=== PATIENT | male | born 1945 | race African-American/Black ===

== ENCOUNTER → 2017-01-20 | Outpatient (CLI) | payer MEDICARE, MEDICAID ==
[2017-01-20 14:12] LABS: BASO # 0.1 x10^3/uL (0.0-0.2); BASO % 1 % (0-3); EOS % 4 % (0-3); HEMATOCRIT 38.7 % (39.0-53.0); HEMOGLOBIN 12.2 g/dL (13.0-17.5); LYMPH # 3.8 x10^3/uL (1.0-4.8); LYMPH % 30 % (24-48); MEAN CORPUSCULAR HEMOGLOBIN 26 pg (25-35); MEAN CORPUSCULAR HGB CONC 32 g/dL (31-37); MEAN CORPUSCULAR VOLUME 83 fL (79-100); MONO % 9 % (0-9); NEUT % 56 % (31-73); PLATELET COUNT 303 x10^3/uL (140-400); RED BLOOD COUNT 4.65 x10^6/uL (4.30-5.70); WHITE BLOOD COUNT 12.7 x10^3/uL (4.0-11.0)
--- NOTE | 2017-01-20 14:14 | RAD ---
Indication pain. Internally and externally rotated views of the right shoulder as well as a Y view were obtained. No bony abnormality is seen.
[2017-01-20 14:37] LABS: CREATININE 1.8 mg/dL (0.7-1.3); GFR 45.4
== END | disposition home or self-care (01) ==
LOC: RAD 13:03
PROVIDERS: ATTEND Psychiatry & Neurology Neurology
DX: M79.601 Pain in right arm (principal); R20.0 Anesthesia of skin
CPT/HCPCS: 36415; 73030; 82550; 82565; 82607; 84443; 84520; 85027; 85651; 86431

== ENCOUNTER → 2017-02-05 | Outpatient (CLI) | payer MEDICARE, OTHER ==
--- NOTE | 2017-02-05 11:54 | RAD ---
Indication headache. Noncontrast images of the head were obtained. No prior imaging of the head is available. The calvarium appears unremarkable. The visualized paranasal sinuses appear normal. There is no subdural or epidural hematoma. Some physiologic calcification of the basal ganglia is noted. Ventricles and sulci are within normal limits given the patient's age. No hemorrhage mass or acute finding is seen. IMPRESSION: No acute finding PQRS Compliance Statement: One or more of the following individualized dose reduction techniques were utilized for this examination: 1. Automated exposure control 2. Adjustment of the mA and/or kV according to patient size 3. Use of iterative reconstruction technique
--- NOTE | 2017-02-05 13:10 | RAD ---
Right upper extremity arterial ultrasound, 02/05/2017: History: Right arm pain, peripheral vascular disease Duplex evaluation of the major arteries in the right upper extremity was performed including grayscale, color-flow and spectral Doppler analysis. The right subclavian artery demonstrates an abnormal monophasic Doppler waveform. This suggests proximal stenotic disease. The peak systolic velocity in the right subclavian artery is 82 cm/s. By comparison, the left subclavian artery demonstrates a biphasic Doppler waveform with a peak systolic velocity 110 cm/s. The right subclavian, axillary, brachial, radial and ulnar arteries are all patent. There are minimal scattered atherosclerotic plaques. These vessels all demonstrate monophasic Doppler waveforms. No significant focal velocity elevation is seen in these vessels to suggest high-grade focal stenosis. IMPRESSION: 1. Abnormal monophasic Doppler waveforms throughout the right upper extremity suggesting inflow stenotic disease, possibly involving the proximal right subclavian or innominate arteries. 2. No focal arterial stenosis is identified in the right arm.
== END | disposition home or self-care (01) ==
LOC: CT 10:58
PROVIDERS: ATTEND Psychiatry & Neurology Neurology
DX: R51 Headache (principal); I73.9 Peripheral vascular disease, unspecified; M79.601 Pain in right arm
CPT/HCPCS: 70450; 93931

== ENCOUNTER 2021-04-24 12:13 | Inpatient (IN) | payer OTHER ==
[2021-04-24] VITALS (9 sets, daily range): BP systolic 93–168; BP diastolic 64–79
[~2021-04-24] VITALS: Ht 188 cm; Wt 133.6 kg
[~2021-04-24 12:13] MED LIST: ACET325T21 PO; ALBU2.5V8 IH; AMLO-186 PO; ASPI-886 PO; BISA5TAB4 PO; CARV12.5 PO; DOCU-148 PO; FENO54TA PO; FLUT1DIS IH; FURO40TA4 PO; GABA-585 PO; GLIM2TAB7 PO; GLYB2.5T2 PO; HYDR-2868 PO; LOSA-73 PO; METF10007 PO; METF500T16 PO; MONT10TA49 PO; PANT20TA2 PO; POLY17PO52 PO; POTA20TA4 PO; ROSU40TA22 PO; SITA100T PO
[2021-04-24] MEDS ORDERED: PROPOFOL 100 ML IV ONE (12:36)
[2021-04-24 12:48] LABS: BASO # 0.1 x10^3/uL (0.0-0.2); BASO % 1 % (0-3); EOS % 0 % (0-3); HEMATOCRIT 33.1 % (39.0-53.0); HEMOGLOBIN 10.7 g/dL (13.0-17.5); LYMPH # 3.1 x10^3/uL (1.0-4.8); LYMPH % 15 % (24-48); MEAN CORPUSCULAR HEMOGLOBIN 27 pg (25-35); MEAN CORPUSCULAR HGB CONC 32 g/dL (31-37); MEAN CORPUSCULAR VOLUME 83 fL (79-100); MONO % 10 % (0-9); NEUT # 14.8 x10^3/uL (1.8-7.7); NEUT % 74 % (31-73); PLATELET COUNT 268 x10^3/uL (140-400); RED BLOOD COUNT 3.98 x10^6/uL (4.30-5.70); RED CELL DISTRIBUTION WIDTH 15.6 % (11.5-14.5)
[2021-04-24 12:59] LABS: CREATININE 2.9 mg/dL (0.7-1.3); GFR 25.9; POTASSIUM 3.8 mmol/L (3.5-5.1)
--- NOTE | 2021-04-24 13:02 | ED.ADGEN ---
Past Medical History Additional Past Medical Histor: POOR HISTORIAN Past Surgical History: Other Additional Past Surgical Histo: unknown Smoking Status: Current Every Day Smoker Alcohol Use: None General Adult EDM: Chief Complaint: DYSPNEA/RESPIRATORY DISTRESS HPI: HPI: Patient is a 75-year-old male who presents to the emergency room with severe respiratory distress. History is significantly limited due to patient's respiratory distress. EMS states that when they arrived patient was diaphoretic and gasping for air. His home health care nurse is who called 911. Patient was admitted to the hospital couple of weeks ago for chest pain and does not have a history of known heart failure. Unclear when patient began feeling ill. Review of Systems: Review of Systems: Unable to obtain due to respiratory distress Current Medications: Current Medications Medications (Trade) Dose Ordered Sig/Jodie Start Time Stop Time Status Last Admin Dose Admin Etomidate (Amidate) 20 mg STK-MED ONCE 04/24/21 13:38 04/24/21 13:38 DC Propofol 100 ml @ As Directed STK-MED ONCE 04/24/21 12:36 04/24/21 12:36 DC Succinylcholine Chloride (Anectine) 200 mg STK-MED ONCE 04/24/21 13:38 04/24/21 13:38 DC Allergies: Allergies: Allergies Coded Allergies Type Severity Reaction Last Updated Verified Penicillins Allergy Intermediate 04/16/21 Yes morphine Allergy Intermediate 04/16/21 Yes Physical Exam: PE: General: Awake, alert, severe distress, diaphoresis HEENT: Atraumatic, EOMI, PERRL, airway patent, moist oral mucosa Neck: Supple, trachea midline Respiratory: Decreased breath sounds bilaterally, respiratory distress, accessory muscle use, diffuse crackles CV: Tachycardia, no murmur, cap refill <2 GI: Soft, nondistended, nontender, no masses MSK: No obvious deformities Skin: Warm, dry, intact Neuro: Speech limited, sensory and motor grossly intact, no focal deficits Psych: Anxious, not suicidal or homicidal Current Patient Data: Labs: Laboratory Tests Test 04/24/21 12:15 04/24/21 13:00 White Blood Count 20.0 x10^3/uL (4.0-11.0) H Red Blood Count 3.98 x10^6/uL (4.30-5.70) L Hemoglobin 10.7 g/dL (13.0-17.5) L Hematocrit 33.1 % (39.0-53.0) L Mean Corpuscular Volume 83 fL (79-100) Mean Corpuscular Hemoglobin 27 pg (25-35) Mean Corpuscular Hemoglobin Concent 32 g/dL (31-37) Red Cell Distribution Width 15.6 % (11.5-14.5) H Platelet Count 268 x10^3/uL (140-400) Neutrophils (%) (Auto) 74 % (31-73) H Lymphocytes (%) (Auto) 15 % (24-48) L Monocytes (%) (Auto) 10 % (0-9) H Eosinophils (%) (Auto) 0 % (0-3) Basophils (%) (Auto) 1 % (0-3) Neutrophils # (Auto) 14.8 x10^3/uL (1.8-7.7) H Lymphocytes # (Auto) 3.1 x10^3/uL (1.0-4.8) Monocytes # (Auto) 2.0 x10^3/uL (0.0-1.1) H Eosinophils # (Auto) 0.0 x10^3/uL (0.0-0.7) Basophils # (Auto) 0.1 x10^3/uL (0.0-0.2) Segmented Neutrophils % 73 % (35-66) H Band Neutrophils % 2 % (0-9) Lymphocytes % 19 % (24-48) L Monocytes % 5 % (0-10) Basophils % 1 % (0-3) Platelet Estimate Adequate (ADEQUATE) Sodium Level 140 mmol/L (136-145) Potassium Level 3.8 mmol/L (3.5-5.1) Chloride Level 104 mmol/L (98-107) Carbon Dioxide Level 26 mmol/L (21-32) Anion Gap 10 (6-14) Blood Urea Nitrogen 21 mg/dL (8-26) Creatinine 2.9 mg/dL (0.7-1.3) H Estimated GFR (Cockcroft-Gault) 25.9 BUN/Creatinine Ratio 7 (6-20) Glucose Level 162 mg/dL (70-99) H Calcium Level 9.0 mg/dL (8.5-10.1) Magnesium Level 1.9 mg/dL (1.8-2.4) Total Bilirubin 0.8 mg/dL (0.2-1.0) Aspartate Amino Transferase (AST) 22 U/L (15-37) Alanine Aminotransferase (ALT) 22 U/L (16-63) Alkaline Phosphatase 48 U/L (46-116) Troponin I Quantitative 1.372 ng/mL (0.000-0.055) QG-Ehn-R-Type Natriuretic Peptide 21127 pg/mL (0-124) H Total Protein 6.9 g/dL (6.4-8.2) Albumin 3.0 g/dL (3.4-5.0) L Albumin/Globulin Ratio 0.8 (1.0-1.7) L Procalcitonin 0.13 ng/mL (0.00-0.10) H SARS-CoV-2 RNA (PIEDAD) Positive (Negative) A Laboratory Tests 04/24/21 12:15 Laboratory Tests 04/24/21 12:15 Vital Signs: Vital Signs Date Time Temp Pulse Resp B/P (MAP) Pulse Ox O2 Delivery O2 Flow Rate FiO2 04/24/21 13:51 82 25 86/54 (65) 100 BiPAP/CPAP 04/24/21 12:13 98.2 98.2 EKG: EKG: [] Heart Score: C/O Chest Pain: N/A Risk Factors: Risk Factors: DM, Current or recent (<one month) smoker, HTN, HLP, family history of CAD, obesity. Risk Scores: Score 0 - 3: 2.5% MACE over next 6 weeks - Discharge Home Score 4 - 6: 20.3% MACE over next 6 weeks - Admit for Clinical Observation Score 7 - 10: 72.7% MACE over next 6 weeks - Early Invasive Strategies Radiology/Procedures: Radiology/Procedures: [] Course & Med Decision Making: Course & Med Decision Making Pertinent Labs and Imaging studies reviewed. (See chart for details) Patient is a 75-year-old male who presents to the emergency room with new onset respiratory distress. Chest x-ray shows what appears to be acute pulmonary edema. Patient initially was placed on BiPAP but continued to have significant respiratory distress and hypoxia. Patient was then intubated without difficulty. Differential diagnosis for acute pulmonary edema includes CAD, congestive heart failure, hypertensive urgency, COVID-19. Covid swab was ordered. Patient does have an elevated troponin, however his EKG does not show signs of a STEMI. Patient will be admitted to the ICU as a PUI. He is tolerating the ventilator without difficulty. Dragon Disclaimer: Dragon Disclaimer: This electronic medical record was generated, in whole or in part, using a voice recognition dictation system. Departure Departure Impression: Primary Impression: Acute respiratory failure with hypoxia Additional Impressions: Elevated troponin Acute CHF Pulmonary edema Person under investigation for COVID-19 Disposition: ADMITTED INPATIENT Condition: GUARDED Referrals: RACHID GARIBAY MD (PCP) Critical Care Time Critical Care: Authorized and Performed by: Mag Wang MD Total critical care time: approximately 45 minutes Due to a high probability of clinically significant, life threatening deterio ration, the patient required my highest level of preparedness to intervene emergently and I personally spent this critical care time directly and personally managing the patient. This critical care time included obtaining a history; examining the patient; pulse oximetry; ventilator management if nec essary; ordering and review of studies; arranging urgent treatment with development of a management plan; evaluation of patient's response to treatment; frequent reassessment; discussion with patient/family; and, discussions with other providers. This critical care time was performed to assess and manage the high probability of imminent, life-threatening deterioration that could result in multi-organ failure. It was exclusive of separately billable procedures and treating other patients and teaching time. Please see MDM section and the rest of the note for further information on patient assessment and treatment. PROCEDURE Procedure Intubation Performed by: Mag Wang MD Consent: Verbal consent not obtained. The procedure was performed in an emergent situation. Required items: required blood products, implants, devices, and special equipment available Patient identity confirmed: arm band Time out: Immediately prior to procedure a "time out" was called to verify the correct patient, procedure, equipment, donor support technician and site/side marked as re quired. Indications: respiratory failure and airway protection Intubation method: direct Patient status: paralyzed (RSI) Preoxygenation: CPAP Sedatives: etomidate Paralytic: succinylcoline Laryngoscope size: Mac 4 Tube size: 7.5 mm Tube type: cuffed Number of attempts: 1 Cords visualized: yes Post-procedure assessment: chest rise, BS = bilaterally none over epigastrum, +CO2 detector Breath sounds: equal and absent over the epigastrium Cuff inflated: yes Tube secured with: adhesive tape Chest x-ray interpreted by me. Chest x-ray findings: endotracheal tube in appropriate position Patient tolerance: Patient tolerated the procedure well with no immediate complications. Problem Qualifiers MAG WANG MD Apr 24, 2021 13:02
[2021-04-24 13:05] LABS: ALBUMIN/GLOBULIN RATIO 0.8 (1.0-1.7); MAGNESIUM 1.9 mg/dL (1.8-2.4); TOTAL BILIRUBIN 0.8 mg/dL (0.2-1.0); TOTAL PROTEIN 6.9 g/dL (6.4-8.2)
[2021-04-24 13:23] LABS: % BANDS 2 % (0-9); % BASOS 1 % (0-3); % LYMPHS 19 % (24-48); % MONOS 5 % (0-10); % SEGS 73 % (35-66)
[2021-04-24 13:24] LABS: PLT ESTIMATE ADEQUATE (ADEQUATE)
--- NOTE | 2021-04-24 13:34 | RAD ---
XR CHEST 1V History: Reason: intubation / Spl. Instructions: / History: Comparison: April 16, 2021 Findings: Intubation with endotracheal tube tip 5.8 cm above the leilani. Enteric tube with tip below the diaphr agm beyond the image. Diffuse interstitial and alveolar opacities. Small bilateral pleural effusions. No pneumothorax. Enlarged cardiac size, unchanged. Impression: 1. Increased diffuse interstitial and alveolar opacities, may represent pulmonary edema or infection including viral pneumonia. 2. Small bilateral pleural effusions. Electronically signed by: Ahsan Sharma DO (04/24/2021 1:31 PM) [id number]
[2021-04-24] MEDS ORDERED: SUCCINYLCHOLINE 200 MG/10 ML VIAL. ONE (13:38)
[2021-04-24] MEDS ORDERED: ETOMIDATE 20 MG/10 ML VIAL. IV ONE (13:38)
[2021-04-24] MEDS ORDERED: PROPOFOL 100 ML IV PRN (14:00)
[2021-04-24] MEDS ORDERED: 0.9 % SODIUM CHLORIDE 10 ML DISP.SYRIN. IV PRN (14:00)
[2021-04-24] MEDS ORDERED: fentaNYL PF VIAL 100 MCG/2 ML VIAL IV PRN ×2 (14:00)
[2021-04-24] MEDS ORDERED: ACETAMINOPHEN 325 MG TABLET. PO PRN (14:00)
[2021-04-24] MEDS ORDERED: ONDANSETRON PF 4 MG/2 ML VIAL. IVP PRN ×2 (14:00)
--- NOTE | 2021-04-24 14:12 | PDOC1 ---
History and Physical Date of Admission Date of Admission DATE: 04/24/21 TIME: 13:48 Identification/Chief Complaint Chief Complaint Hypoxic respiratory failure Source Source: Caregiver, Chart review History of Present Illness History of Present Illness Mr Cunha is a 75 yo male w/ PMHx CAD, HTN, Hyperlipidemia, subclavian steel syndrome, subclavian stenosis s/p left subclavian sent placement complicated by retroperitoneal hematoma s/p evacuation in 08/2015), asthma, BART, CKD, DM2 who presented from home with home health care noted that he was short of breath and valverde with O2 saturations less than 89% as low as 84% not improved with nasal cannulated oxygen placed on CPAP and brought to ED for further care. He was just discharged from the hospital a week ago on April 19, 2021 for abdominal pain and was going for further cardiac testing with outpatient stress testing scheduled on May 28, 2021. Had echocardiogram April 17, 2021 with normal-appearing EF with moderate concentric LVH no significant valvular abnormalities. WBC 20, Hb 10.7, platelets 268, NA 140, K3.8, BUN 21, CR 2.9, glucose 162, albumin 3, troponin I 1.372, NT proBNP 33,318. EKG appears sinus tachycardia rate of 105 bpm with multiple PACs small ST depressions in lead II and V5. TWI in V6. Chest radiograph with diffuse interstitial and alveolar opacities and ET tube 5.8 cm above the leilani. Due to worsening respiratory status ED physician elected to intubate patient. Seen postintubation. Blood pressure little low after propofol bolus, but improved. Significant white frothy sputum per ET tube. Admitted to ICU for further care Past Medical History Cardiovascular: CAD, HTN, Hyperlipidemia, Other Pulmonary: Asthma, COPD, Other Heme/Onc: Anemia NOS Hepatobiliary: No pertinent hx Musculoskeletal: Osteoarthritis, Other Rheumatologic: Gout Renal/: Chronic renal insuff, Other Endocrine: Diabetes Past Surgical History Past Surgical History: Other Family History Family History: Family History Unknown Social History Smoke: Quit ALCOHOL: other Drugs: Marijuana Current Medications Current Medications Current Medications Propofol 100 ml @ As Directed STK-MED ONCE IV ; Start 04/24/21 at 12:36; Stop 04/24/21 at 12:36; Status DC Etomidate (Amidate) 20 mg STK-MED ONCE IV ; Start 04/24/21 at 13:38; Stop 04/24/21 at 13:38; Status DC Succinylcholine Chloride (Anectine) 200 mg STK-MED ONCE .ROUTE ; Start 04/24/21 at 13:38; Stop 04/24/21 at 13:38; Status DC Active Scripts Active Glyburide 2.5 Mg Tablet 1 Tab PO DAILY 14 Days Polyethylene Glycol 3350 17 Gm Powd.pack 17 Gm PO DAILY 14 Days Dok (Docusate Sodium) 100 Mg Capsule 100 Mg PO PRN DAILY PRN 30 Days Bisacodyl 5 Mg Tablet.dr 5 Mg PO PRN DAILY PRN 14 Days Acetaminophen 325 Mg Tablet 650 Mg PO PRN Q4HRS PRN 14 Days Aspirin Ec (Aspirin) 81 Mg Tablet.dr 81 Mg PO DAILYWBKFT 30 Days Hydralazine Hcl 25 Mg Tablet 25 Mg PO QID 30 Days Reported Fenofibrate 54 Mg Tablet 1 Tab PO DAILY Potassium Chloride (Potassium Chloride) 20 Meq Tablet.er 20 Meq PO DAILY Coreg (Carvedilol) 12.5 Mg Tablet 37.5 Mg PO BIDWMEALS Rosuvastatin Calcium 40 Mg Tablet 40 Mg PO QHS Gabapentin (Gabapentin) 100 Mg Capsule 200 Mg PO BID Montelukast Sodium Tablet (Montelukast Sodium) 10 Mg Tablet 10 Mg PO HS Protonix (Pantoprazole Sodium) 20 Mg Tablet.dr 2 Tab PO DAILY Amlodipine Besylate 5 Mg Tablet 5 Mg PO DAILY Furosemide 40 Mg Tablet 1 Tab PO DAILY Proair Hfa Inhaler (Albuterol Sulfate) 8.5 Gm Hfa.aer.ad 2 Puff IH PRN Q4-6HRS PRN 21 Days Advair 100-50 Diskus (Fluticasone/Salmeterol) 1 Each Disk.w.dev 1 Puff IH BID Allergies Allergies: Coded Allergies: Penicillins (Verified Allergy, Intermediate, 04/16/21) morphine (Verified Allergy, Intermediate, 04/16/21) itches real bad all over ROS Review of System Unable to obtain. Sedated on ventilator. Physical Exam General: Other (Sedated on ventilator) HEENT: Atraumatic, PERRLA, EOMI, Mucous membr. moist/pink, Other (ET tube and OG tube in place) Lungs: Other (Bilateral crackles) Heart: S1S2, RRR, no thrills, no rubs Abdomen: Normal bowel sounds, Soft, No tenderness, No hepatosplenomegaly, No masses Extremities: No clubbing, No cyanosis, No edema, Normal pulses, No tenderness/swelling Skin: No rashes, No breakdown, No significant lesion Neuro: Normal tone, Cranial nerves 3-12 NL, Reflexes 2+ Psych/Mental Status: Other (Sedated on vent) Vitals Vitals Vital Signs Date Time Temp Pulse Resp B/P (MAP) Pulse Ox O2 Delivery O2 Flow Rate FiO2 04/24/21 13:41 82 26 82/52 (62) 100 Ventilator 04/24/21 12:13 98.2 98.2 Labs Labs Laboratory Tests Test 04/24/21 12:15 White Blood Count 20.0 x10^3/uL (4.0-11.0) Red Blood Count 3.98 x10^6/uL (4.30-5.70) Hemoglobin 10.7 g/dL (13.0-17.5) Hematocrit 33.1 % (39.0-53.0) Mean Corpuscular Volume 83 fL (79-100) Mean Corpuscular Hemoglobin 27 pg (25-35) Mean Corpuscular Hemoglobin Concent 32 g/dL (31-37) Red Cell Distribution Width 15.6 % (11.5-14.5) Platelet Count 268 x10^3/uL (140-400) Neutrophils (%) (Auto) 74 % (31-73) Lymphocytes (%) (Auto) 15 % (24-48) Monocytes (%) (Auto) 10 % (0-9) Eosinophils (%) (Auto) 0 % (0-3) Basophils (%) (Auto) 1 % (0-3) Neutrophils # (Auto) 14.8 x10^3/uL (1.8-7.7) Lymphocytes # (Auto) 3.1 x10^3/uL (1.0-4.8) Monocytes # (Auto) 2.0 x10^3/uL (0.0-1.1) Eosinophils # (Auto) 0.0 x10^3/uL (0.0-0.7) Basophils # (Auto) 0.1 x10^3/uL (0.0-0.2) Segmented Neutrophils % 73 % (35-66) Band Neutrophils % 2 % (0-9) Lymphocytes % 19 % (24-48) Monocytes % 5 % (0-10) Basophils % 1 % (0-3) Platelet Estimate Adequate (ADEQUATE) Sodium Level 140 mmol/L (136-145) Potassium Level 3.8 mmol/L (3.5-5.1) Chloride Level 104 mmol/L (98-107) Carbon Dioxide Level 26 mmol/L (21-32) Anion Gap 10 (6-14) Blood Urea Nitrogen 21 mg/dL (8-26) Creatinine 2.9 mg/dL (0.7-1.3) Estimated GFR (Cockcroft-Gault) 25.9 BUN/Creatinine Ratio 7 (6-20) Glucose Level 162 mg/dL (70-99) Calcium Level 9.0 mg/dL (8.5-10.1) Magnesium Level 1.9 mg/dL (1.8-2.4) Total Bilirubin 0.8 mg/dL (0.2-1.0) Aspartate Amino Transf (AST/SGOT) 22 U/L (15-37) Alanine Aminotransferase (ALT/SGPT) 22 U/L (16-63) Alkaline Phosphatase 48 U/L (46-116) Troponin I Quantitative 1.372 ng/mL (0.000-0.055) CG-Fzo-K-Type Natriuretic Peptide 84143 pg/mL (0-124) Total Protein 6.9 g/dL (6.4-8.2) Albumin 3.0 g/dL (3.4-5.0) Albumin/Globulin Ratio 0.8 (1.0-1.7) Laboratory Tests Test 04/24/21 12:15 White Blood Count 20.0 x10^3/uL (4.0-11.0) Red Blood Count 3.98 x10^6/uL (4.30-5.70) Hemoglobin 10.7 g/dL (13.0-17.5) Hematocrit 33.1 % (39.0-53.0) Mean Corpuscular Volume 83 fL (79-100) Mean Corpuscular Hemoglobin 27 pg (25-35) Mean Corpuscular Hemoglobin Concent 32 g/dL (31-37) Red Cell Distribution Width 15.6 % (11.5-14.5) Platelet Count 268 x10^3/uL (140-400) Neutrophils (%) (Auto) 74 % (31-73) Lymphocytes (%) (Auto) 15 % (24-48) Monocytes (%) (Auto) 10 % (0-9) Eosinophils (%) (Auto) 0 % (0-3) Basophils (%) (Auto) 1 % (0-3) Neutrophils # (Auto) 14.8 x10^3/uL (1.8-7.7) Lymphocytes # (Auto) 3.1 x10^3/uL (1.0-4.8) Monocytes # (Auto) 2.0 x10^3/uL (0.0-1.1) Eosinophils # (Auto) 0.0 x10^3/uL (0.0-0.7) Basophils # (Auto) 0.1 x10^3/uL (0.0-0.2) Segmented Neutrophils % 73 % (35-66) Band Neutrophils % 2 % (0-9) Lymphocytes % 19 % (24-48) Monocytes % 5 % (0-10) Basophils % 1 % (0-3) Platelet Estimate Adequate (ADEQUATE) Sodium Level 140 mmol/L (136-145) Potassium Level 3.8 mmol/L (3.5-5.1) Chloride Level 104 mmol/L (98-107) Carbon Dioxide Level 26 mmol/L (21-32) Anion Gap 10 (6-14) Blood Urea Nitrogen 21 mg/dL (8-26) Creatinine 2.9 mg/dL (0.7-1.3) Estimated GFR (Cockcroft-Gault) 25.9 BUN/Creatinine Ratio 7 (6-20) Glucose Level 162 mg/dL (70-99) Calcium Level 9.0 mg/dL (8.5-10.1) Magnesium Level 1.9 mg/dL (1.8-2.4) Total Bilirubin 0.8 mg/dL (0.2-1.0) Aspartate Amino Transf (AST/SGOT) 22 U/L (15-37) Alanine Aminotransferase (ALT/SGPT) 22 U/L (16-63) Alkaline Phosphatase 48 U/L (46-116) Troponin I Quantitative 1.372 ng/mL (0.000-0.055) VT-Mwf-S-Type Natriuretic Peptide 92651 pg/mL (0-124) Total Protein 6.9 g/dL (6.4-8.2) Albumin 3.0 g/dL (3.4-5.0) Albumin/Globulin Ratio 0.8 (1.0-1.7) Images Images Chest radiograph: Intubation with endotracheal tube tip 5.8 cm above the leilani. Enteric tube with tip below the diaphragm beyond the image. Diffuse interstitial and alveolar opacities. Small bilateral pleural effusions. No pneumothorax. Enlarged cardiac size, unchanged. Impression: 1. Increased diffuse interstitial and alveolar opacities, may represent pulmonary edema or infection including viral pneumonia. 2. Small bilateral pleural effusions. VTE Prophylaxis Ordered VTE Prophylaxis Devices: Yes VTE Pharmacological Prophylaxi: Yes Assessment/Plan Assessment/Plan A/P: Acute respiratory failure with hypoxia - appears secondary to pulmonary edema vs pneumonia. Will diurese with IV Lasix and cover for H CAP with cefepime x1. Check procalcitonin follow-up blood cultures. Pulmonology consulted for assista nce in vent management. NSTEMI - possibly demand ischemia due to hypoxia, will trend troponins, consult cardiology SIRS - likely sepsis from HCAP, treating with cefepime, given clear fluid overload will not give IVF. Trend WBC, f/u blood cultures. Hypertensive urgency - improved with intubation and sedation Hyperlipidemia - on statin CKD - appears currently at baseline Diabetes, II - sliding scale H/o bilateral subclavian stenosis s/p left subclavian sent placement complicated by retroperitoneal hematoma s/p evacuation in 08/2015. Marijuana use - will alcoholic counselor on any smoking with respiratory illness when awake Moderate protein calorie malnutrition - his brother notes the patient has "given up" FEN - NPO PPX - heparin FULL CODE Dispo - inpatient CC time 63 minutes Surrogate decision-maker is fred Simpson Justifications for Admission Other Justification BRIAN MONTES MD Apr 24, 2021 14:12
[2021-04-24] MEDS ORDERED: FUROSEMIDE 40 MG/4 ML VIAL. IVP ONE (15:15)
[2021-04-24] MEDS ORDERED: CEFEPIME HCL IV Push 2 GM VIAL. IVP ONE (16:30)
--- NOTE | 2021-04-24 16:33 | PDOC2 ---
CARDIAC CONSULT DATE OF CONSULT Date of Consult DATE: 04/24/21 TIME: 16:21 REASON FOR CONSULT Reason for Consult: Acute CHF REFERRING PHYSICIAN Referring Physician: Dr. Lara SOURCE Source: Patient HISTORY OF PRESENT ILLNESS HISTORY OF PRESENT ILLNESS This is a 75 yo male who presented secondary to respiratory distress. Required intubation in ED. Was hospitalized last week due to abdominal pain. CT abdomen/pelvis with cholelithiasis. Troponin noted to be mildly elevated, which prompted cardiology consult. Echo shows preserved LV systolic functions. HIDA showed normal gallbladder visualization and transit of radiotracer into the small bowel. Outpatient ischemic evaluation and followup was arranged. 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 complicated by retroperitoneal hematoma s/p evacuation in 08/2015) Pulmonary: Asthma, COPD, Other (BART) Heme/Onc: Anemia NOS Hepatobiliary: No pertinent hx Musculoskeletal: Osteoarthritis, Other (chronic low back pain ) Rheumatologic: Gout Renal/: Chronic renal insuff, Other (urinary retention ) Endocrine: Diabetes PAST SURGICAL HISTORY Past Surgical History: Other (see PMH) FAMILY HISTORY Family History: Family History Unknown SOCIAL HISTORY Smoke: Quit Drugs: Marijuana CURRENT MEDICATIONS CURRENT MEDICATIONS Current Medications Medications (Trade) Dose Ordered Sig/Jodie Route PRN Reason Start Time Stop Time Status Last Admin Dose Admin Propofol 100 ml @ 0 mls/hr CONT PRN IV PER PROTOCOL 04/24/21 14:00 04/24/21 15:19 DC 04/24/21 15:12 ALLERGIES ALLERGIES: Coded Allergies: Penicillins (Verified Allergy, Intermediate, 04/16/21) morphine (Verified Allergy, Intermediate, 04/16/21) itches real bad all over ROS Review of System unobtainable PHYSICAL EXAM General: Other (sedated) HEENT: Atraumatic Lungs: Other (MV) Heart: Regular rate Abdomen: Soft, Other (obese) Extremities: Other (trace LE edema ) Neuro: Other (unable to assess) Psych/Mental Status: Other (sedated) MUSCULOSKELETAL: Osteoarthritic changes both hands VITALS/I&O VITALS/I&O: Vital Signs Date Time Temp Pulse Resp B/P (MAP) Pulse Ox O2 Delivery O2 Flow Rate FiO2 04/24/21 16:05 100 Ventilator 04/24/21 14:06 80 25 103/59 (74) 04/24/21 12:13 98.2 98.2 LABS Lab: Laboratory Tests Test 04/24/21 12:15 White Blood Count 20.0 x10^3/uL (4.0-11.0) H Red Blood Count 3.98 x10^6/uL (4.30-5.70) L Hemoglobin 10.7 g/dL (13.0-17.5) L Hematocrit 33.1 % (39.0-53.0) L Mean Corpuscular Volume 83 fL (79-100) Mean Corpuscular Hemoglobin 27 pg (25-35) Mean Corpuscular Hemoglobin Concent 32 g/dL (31-37) Red Cell Distribution Width 15.6 % (11.5-14.5) H Platelet Count 268 x10^3/uL (140-400) Neutrophils (%) (Auto) 74 % (31-73) H Lymphocytes (%) (Auto) 15 % (24-48) L Monocytes (%) (Auto) 10 % (0-9) H Eosinophils (%) (Auto) 0 % (0-3) Basophils (%) (Auto) 1 % (0-3) Neutrophils # (Auto) 14.8 x10^3/uL (1.8-7.7) H Lymphocytes # (Auto) 3.1 x10^3/uL (1.0-4.8) Monocytes # (Auto) 2.0 x10^3/uL (0.0-1.1) H Eosinophils # (Auto) 0.0 x10^3/uL (0.0-0.7) Basophils # (Auto) 0.1 x10^3/uL (0.0-0.2) Segmented Neutrophils % 73 % (35-66) H Band Neutrophils % 2 % (0-9) Lymphocytes % 19 % (24-48) L Monocytes % 5 % (0-10) Basophils % 1 % (0-3) Platelet Estimate Adequate (ADEQUATE) Sodium Level 140 mmol/L (136-145) Potassium Level 3.8 mmol/L (3.5-5.1) Chloride Level 104 mmol/L (98-107) Carbon Dioxide Level 26 mmol/L (21-32) Anion Gap 10 (6-14) Blood Urea Nitrogen 21 mg/dL (8-26) Creatinine 2.9 mg/dL (0.7-1.3) H Estimated GFR (Cockcroft-Gault) 25.9 BUN/Creatinine Ratio 7 (6-20) Glucose Level 162 mg/dL (70-99) H Calcium Level 9.0 mg/dL (8.5-10.1) Magnesium Level 1.9 mg/dL (1.8-2.4) Total Bilirubin 0.8 mg/dL (0.2-1.0) Aspartate Amino Transferase (AST) 22 U/L (15-37) Alanine Aminotransferase (ALT) 22 U/L (16-63) Alkaline Phosphatase 48 U/L (46-116) Troponin I Quantitative 1.372 ng/mL (0.000-0.055) MD-Ryo-B-Type Natriuretic Peptide 95518 pg/mL (0-124) H Total Protein 6.9 g/dL (6.4-8.2) Albumin 3.0 g/dL (3.4-5.0) L Albumin/Globulin Ratio 0.8 (1.0-1.7) L Laboratory Tests 04/24/21 12:15 Laboratory Tests 04/24/21 12:15 ECHOCARDIOGRAM ECHOCARDIOGRAM <Conclusion> The left ventricular systolic function is normal. The ejection fraction is estimated at 55 to 60% There is normal LV segmental wall motion. There is moderate concentric left ventricular hypertrophy. Transmitral Doppler flow pattern is Grade II-pseudonormal filling dynamics. Mild valvular aortic stenosis with mean PG 19 mmHg. Mild mitral regurgitation. Trace tricuspid regurgitation. There is no evidence of significant pericardial effusion. DATE: 04/17/21 [id number] STRESS TEST STRESS TEST STRESS TEST 06/16/14 - Procedure: GATED REGADENOSON THALLIUM MPI STRESS TEST SUMMARY/OPINION: This study is borderline abnormal and demonstrates a small area of mild intensity reversible basal inferior decreased tracer uptake, suggestive of a small area of mild ischemia in the right coronary artery distribution. Apical anterior defect is fixed and may be an attenuation artifact. Overall left ventricular size and systolic function are normal and no high risk adverse prognostic indicators are present. Calculated ejection fraction is 51 percent; visually it appears to be normal. ECG portion of this stress test was unremarkable for ischemia. This study was compared with a previous study dated December 18, 2010, which was a pharmacological stress thallium study as well. Basal inferior perfusion abnormalities appear similar between the two studies. Previously noted anter olateral small perfusion abnormality was not seen on the present study. Left ventricular ejection fraction was 62 percent; end diastolic volume 86 mL and pulmonary to myocardial count ratio was 0.4. In aggregate the current study is low risk in regards to predicted annual cardiovascular mortality rate. ASSESSMENT/PLAN ASSESSMENT/PLAN 1. Acute respiratory failure secondary to CHF 2. Hypertensive urgency; labile. presently low-end 3. NSTEMI; initial trop 1.3. Echo last week with preserved LV systolic function with moderate LVH 4. ? CAD; details unknown 5. Hyperlipidemia; statin 6. CKD; Cr 2.9 7. Diabetes, II 8. Leukocytosis 9. H/o bilateral subclavian stenosis s/p left subclavian sent placement complicated by retroperitoneal hematoma s/p evacuation in 08/2015. 10. Marijuana use Recommendations ASA, statin BB as BP allows Repeat EKG in am Start heparin gtt per CV protocol Trend troponin Agree with Lasix. Monitoring of renal function; follow renal recs Lung optimization as per pulm Supportive care Will need further ischemic evaluation when acute issues resolve Supportive care CAMRYN DRAPER APRN Apr 24, 2021 16:33
--- NOTE | 2021-04-24 16:36 | EKG ---
[facility] [address] [place] [address] Test Date: 2021-04-24 Test Time: 12:47:46 Pat Name: NILAM LAN Department: Room: Gender: M [employer] Grader: : 1945 Requested By: MAG LICONA Order Number: [id number] Reading MD: Measurements Intervals [place] Rate: 105 P: 58 CO: 144 QRS: 59 QRSD: 106 T: 24 QT: 316 QTc: 421 Interpretive Statements SINUS TACHYCARDIA ATRIAL PREMATURE COMPLEX(ES) LEFT ATRIAL ABNORMALITY ST & T ABNORMALITY, CONSIDER INFEROLATERAL ISCHEMIA OR LEFT VENTRICULAR STRAIN ABNORMAL ECG RI6.02 No previous ECG available for comparison
[2021-04-24] MEDS: fentaNYL PF VIAL 100 MCG/2 ML VIAL IV PRN (16:39)
[2021-04-24 16:48] LABS: BASE EXCESS COOX -1 mmol/L (-3-3); HCO3 COOX 22 mmol/L (21-28); METHEMOGLOBIN 0.3 % (0.0-1.9); OXYHEMOGLOBIN 98.1 %; PCO2 COOX 31 mmHg (35-46); PO2 COOX 158 mmHg (65-108); SAT O2 COOX 99 % (92-99)
[2021-04-24] MEDS ORDERED: CARVEDILOL 12.5 MG TABLET. PO SCH (17:00)
[2021-04-24] MEDS: CARVEDILOL 3.125 MG TABLET. PO SCH (17:00)
[2021-04-24] MEDS: PROPOFOL 100 ML IV PRN ×2 (17:21→20:43)
[2021-04-24] MEDS: HEPARIN for IV BOLUS 10,000 UNIT/10 ML VIAL. IV PRN ×2 (17:32→23:32)
[2021-04-24] MEDS: HEPARIN 25,000UTS/250ML PREMIX 250 ML IV PRN (17:35)
[2021-04-24] MEDS: INSULIN LISPRO 300 UNITS/3 ML VIAL. SQ SCH ×2 (18:00→23:42)
[2021-04-24] MEDS: MONTELUKAST SODIUM 10 MG TABLET. PO SCH (20:49)
[2021-04-24] MEDS: ATORVASTATIN CALCIUM 40 MG TABLET. PO SCH (20:49)
[2021-04-24] MEDS ORDERED: CHLORHEXIDINE 0.12% 15 ML MOUTHWASH. MM SCH (21:00)
[2021-04-24] MEDS ORDERED: HEPARIN for SUB-Q USE 5,000 UNIT/ML VIAL. SQ SCH (22:00)
[2021-04-24] MEDS: DEXTROSE 50% 25 GM / 50ML DISP.SYRIN. IV PRN (23:43)
[2021-04-25] VITALS (29 sets, daily range): BP systolic 92–198; BP diastolic 47–92
[2021-04-25] MEDS: PROPOFOL 100 ML IV PRN ×8 (00:22→19:26)
--- NOTE | 2021-04-25 00:38 | CONS ---
DATE OF CONSULTATION: 04/24/2021 PULMONARY CONSULTATION ATTENDING PHYSICIAN: Ottoniel Lara MD REASON FOR CONSULTATION: Respiratory failure, abnormal CT chest and fever. HISTORY OF PRESENT ILLNESS: The patient is a 75-year-old male with a BMI of 36. He has a history of CAD, hypertension, hyperlipidemia and COPD. He also has a history of subclavian steal syndrome, status post subclavian stent placement. The patient was brought into the hospital with increasing shortness of breath. He was hypoxic. His oxygen saturation did not improve with nasal cannula. As a result, he was placed on CPAP and was brought to the emergency room. The patient's oxygen saturations per review of the notes did not improve. As a result, he was intubated in the emergency room. The patient's arterial blood gases revealed a pH of 7.47, pCO2 of 31 and a pO2 158 on 100% FiO2. I have reviewed the patient's CT of the chest and it shows diffuse bilateral interstitial infiltrates. No significant pleural effusion seen. The patient did have a fever of 100.9. The patient was given cefepime in the ER and 1 dose of Lasix. I have been asked to see him for further evaluation. I did consultation via telemedicine. PAST MEDICAL HISTORY: History of coronary artery disease, hypertension, hyperlipidemia, COPD, history of subclavian stenosis, status post subclavian stent placement complicated by retroperitoneal hematoma, status post evacuation in 08/2015, history of chronic renal insufficiency and diabetes. PAST SURGICAL HISTORY: No recent surgeries, but a stent of left subclavian as discussed above. FAMILY HISTORY: Unknown. SOCIAL HISTORY: Quit tobacco, has history of marijuana use. ALLERGIES: PENICILLIN AND MORPHINE. MEDICATIONS: Reviewed as listed in the MRAD. REVIEW OF SYSTEMS: Unable to obtain from the patient. PHYSICAL EXAMINATION: Which was done via telemedicine. His vital signs revealed a T-max 100.9, blood pressure 103 systolic. He is not on any pressors. He does not appear to be in any obvious respiratory distress. He is on assist control rate of 26, tidal volume 500, PEEP of 5 and 60% FiO2. There is no paradoxical breathing. He is obese and has trace pitting edema. LABORATORY DATA: Reviewed. White cell count 20.0, hemoglobin 10.7 and platelets are 268. ABGs discussed in my history of present illness. His troponin level is 1.9. ProBNP is markedly elevated. Sodium 140, potassium 3.8, BUN is 21 and a creatinine of 2.9. IMPRESSION: 1. Acute hypoxic respiratory failure secondary to bilateral diffuse interstitial infiltrates. The differential diagnosis would include COVID-19 viral pneumonia in the setting of fever of 100.9. Other possibilities would include acute diastolic congestive heart failure versus hospital-acquired gram-negative pneumonia. 2. Abnormal CT chest with bilateral diffuse interstitial infiltrates without any significant pleural effusion. Differential diagnosis includes interstitial pneumonia versus congestive heart failure. 3. History of recent hospitalization for abdominal pain. He was supposed to have cardiac testing and outpatient stress test. Now, he is hospitalized. Echo with normal ejection fraction and moderate left ventricular hypertrophy. 4. Abnormal troponin, likely [id number] elevation myocardial infarction. 5. History of tobacco use, details of length not available. 6. Chronic kidney disease. RECOMMENDATIONS: 1. Continue present assist control mode and follow ABGs and make necessary adjustments. 2. The patient is status post diuresis. We will follow chest x-ray. 3. Monitor renal function while on diuresis. 4. Continue empiric antibiotic. 5. Rule out COVID viral pneumonia. 6. Continue heparin per protocol for non-STEMI. 7. Continue sedation. 8. Follow all cultures. 9. Discussed with RN, chart reviewed, imaging studies reviewed. Total critical care time 35 minutes. We will follow along with you. MICHAEL DR: Jennifer TID: [id number]
--- NOTE | 2021-04-25 04:59 | RAD ---
XR CHEST 1V INDICATION: Reason: CHF VS PNA/ RF 104 / Spl. Instructions: / History: . COMPARISON STUDY: 04/24/2021. FINDINGS: Life Support Devices: Stable endotracheal tube, enteric tube. Lungs: Normal lung volume. Improving bilateral perihilar and basilar opacities. Pleura: Small left greater than right pleural effusions. Heart and Mediastinum: Stable cardiomediastinal silhouette and great vessels. IMPRESSION: 1. Improving bilateral perihilar and basilar opacities. 2. Small left greater than right pleural effusions. 3. Stable life support devices. Electronically signed by: Spenser Vanegas MD (04/25/2021 4:56 AM) [facility]
[2021-04-25] MEDS: INSULIN LISPRO 300 UNITS/3 ML VIAL. SQ SCH ×3 (05:51→18:00)
[2021-04-25 07:45] LABS: BASO # 0.1 x10^3/uL (0.0-0.2); BASO % 0 % (0-3); EOS % 0 % (0-3); HEMATOCRIT 29.5 % (39.0-53.0); HEMOGLOBIN 9.6 g/dL (13.0-17.5); LYMPH # 1.6 x10^3/uL (1.0-4.8); LYMPH % 11 % (24-48); MEAN CORPUSCULAR HEMOGLOBIN 27 pg (25-35); MEAN CORPUSCULAR HGB CONC 33 g/dL (31-37); MEAN CORPUSCULAR VOLUME 82 fL (79-100); MONO % 7 % (0-9); NEUT # 12.5 x10^3/uL (1.8-7.7); NEUT % 83 % (31-73); PLATELET COUNT 211 x10^3/uL (140-400); RED BLOOD COUNT 3.58 x10^6/uL (4.30-5.70); RED CELL DISTRIBUTION WIDTH 15.5 % (11.5-14.5); WHITE BLOOD COUNT 15.2 x10^3/uL (4.0-11.0)
[2021-04-25] MEDS: ASPIRIN ENTERIC COATED 81 MG TABLET.DR. PO SCH (08:00)
[2021-04-25 08:23] LABS: ALBUMIN 2.2 g/dL (3.4-5.0); ALBUMIN/GLOBULIN RATIO 0.6 (1.0-1.7); CREATININE 3.2 mg/dL (0.7-1.3); GFR 23.1; POTASSIUM 3.1 mmol/L (3.5-5.1); TOTAL BILIRUBIN 0.7 mg/dL (0.2-1.0); TOTAL PROTEIN 5.7 g/dL (6.4-8.2)
[2021-04-25 08:25] LABS: BASE EXCESS ABG 0 mmol/L (-3-3); HCO3 ABG 23 mmol/L (21-28); PCO2 ABG 31 mmHg (35-46); PO2 ABG 73 mmHg (65-108); SAT O2 ABG 95 % (92-99)
[2021-04-25] MEDS: CEFEPIME HCL IV Push 1 GM VIAL. IVP SCH ×2 (09:22→20:39)
[2021-04-25] MEDS: CARVEDILOL 3.125 MG TABLET. PO SCH (09:23)
[2021-04-25 09:24] LABS: FIO2 ABG 50% VENT
[2021-04-25] MEDS: ACETAMINOPHEN 325 MG TABLET. PO PRN ×2 (09:30→17:31)
--- NOTE | 2021-04-25 11:06 | PDOC ---
PULMONARY PROGRESS NOTES DATE: 04/25/21 TIME: 11:00 Subjective Patient is resting on mechanical ventilation assist control mode 50% and a PEEP of 5 febrile overnight COVID-19 positive Sedated with propofol and fentanyl, remains on heparin drip Nursing reports intermittent episodes of atrial fibrillation with rapid ventricular response overnight Vitals Vital Signs Date Time Temp Pulse Resp B/P (MAP) Pulse Ox O2 Delivery O2 Flow Rate FiO2 04/25/21 10:35 98 Ventilator 04/25/21 10:02 130 20 156/84 (108) 04/25/21 09:24 102.7 102.7 Comments intubated and sedated Lungs: Crackles Labs Laboratory Tests Test 04/24/21 12:15 04/24/21 13:00 04/24/21 16:35 04/24/21 18:30 White Blood Count 20.0 x10^3/uL (4.0-11.0) Red Blood Count 3.98 x10^6/uL (4.30-5.70) Hemoglobin 10.7 g/dL (13.0-17.5) Hematocrit 33.1 % (39.0-53.0) Mean Corpuscular Volume 83 fL (79-100) Mean Corpuscular Hemoglobin 27 pg (25-35) Mean Corpuscular Hemoglobin Concent 32 g/dL (31-37) Red Cell Distribution Width 15.6 % (11.5-14.5) Platelet Count 268 x10^3/uL (140-400) Neutrophils (%) (Auto) 74 % (31-73) Lymphocytes (%) (Auto) 15 % (24-48) Monocytes (%) (Auto) 10 % (0-9) Eosinophils (%) (Auto) 0 % (0-3) Basophils (%) (Auto) 1 % (0-3) Neutrophils # (Auto) 14.8 x10^3/uL (1.8-7.7) Lymphocytes # (Auto) 3.1 x10^3/uL (1.0-4.8) Monocytes # (Auto) 2.0 x10^3/uL (0.0-1.1) Eosinophils # (Auto) 0.0 x10^3/uL (0.0-0.7) Basophils # (Auto) 0.1 x10^3/uL (0.0-0.2) Segmented Neutrophils % 73 % (35-66) Band Neutrophils % 2 % (0-9) Lymphocytes % 19 % (24-48) Monocytes % 5 % (0-10) Basophils % 1 % (0-3) Platelet Estimate Adequate (ADEQUATE) Sodium Level 140 mmol/L (136-145) Potassium Level 3.8 mmol/L (3.5-5.1) Chloride Level 104 mmol/L (98-107) Carbon Dioxide Level 26 mmol/L (21-32) Anion Gap 10 (6-14) Blood Urea Nitrogen 21 mg/dL (8-26) Creatinine 2.9 mg/dL (0.7-1.3) Estimated GFR (Cockcroft-Gault) 25.9 BUN/Creatinine Ratio 7 (6-20) Glucose Level 162 mg/dL (70-99) Calcium Level 9.0 mg/dL (8.5-10.1) Magnesium Level 1.9 mg/dL (1.8-2.4) Total Bilirubin 0.8 mg/dL (0.2-1.0) Aspartate Amino Transf (AST/SGOT) 22 U/L (15-37) Alanine Aminotransferase (ALT/SGPT) 22 U/L (16-63) Alkaline Phosphatase 48 U/L (46-116) Troponin I Quantitative 1.372 ng/mL (0.000-0.055) 1.982 ng/mL (0.000-0.055) OB-Cmg-J-Type Natriuretic Peptide 34072 pg/mL (0-124) Total Protein 6.9 g/dL (6.4-8.2) Albumin 3.0 g/dL (3.4-5.0) Albumin/Globulin Ratio 0.8 (1.0-1.7) Procalcitonin 0.13 ng/mL (0.00-0.10) SARS-CoV-2 RNA (PIEDAD) Positive (Negative) O2 Saturation 99 % (92-99) Arterial Blood pH 7.47 (7.35-7.45) Arterial Blood pCO2 at Patient Temp 31 mmHg (35-46) Arterial Blood pO2 at Patient Temp 158 mmHg (65-108) Arterial Blood HCO3 22 mmol/L (21-28) Arterial Blood Base Excess -1 mmol/L (-3-3) Oxyhemoglobin 98.1 % Methemoglobin 0.3 % (0.0-1.9) Carbon Monoxide, Quantitative 0.3 % (0.0-1.9) FiO2 100 Test 04/24/21 18:36 04/24/21 23:10 04/24/21 23:40 04/24/21 23:55 Glucose (Fingerstick) 124 mg/dL (70-99) 61 mg/dL (70-99) 108 mg/dL (70-99) Heparin Anti-Xa Act, Unfractionated < 0.10 IU/mL (0.30-0.70) Test 04/25/21 05:34 04/25/21 05:48 04/25/21 07:10 04/25/21 09:00 Glucose (Fingerstick) 56 mg/dL (70-99) 106 mg/dL (70-99) White Blood Count 15.2 x10^3/uL (4.0-11.0) Red Blood Count 3.58 x10^6/uL (4.30-5.70) Hemoglobin 9.6 g/dL (13.0-17.5) Hematocrit 29.5 % (39.0-53.0) Mean Corpuscular Volume 82 fL (79-100) Mean Corpuscular Hemoglobin 27 pg (25-35) Mean Corpuscular Hemoglobin Concent 33 g/dL (31-37) Red Cell Distribution Width 15.5 % (11.5-14.5) Platelet Count 211 x10^3/uL (140-400) Neutrophils (%) (Auto) 83 % (31-73) Lymphocytes (%) (Auto) 11 % (24-48) Monocytes (%) (Auto) 7 % (0-9) Eosinophils (%) (Auto) 0 % (0-3) Basophils (%) (Auto) 0 % (0-3) Neutrophils # (Auto) 12.5 x10^3/uL (1.8-7.7) Lymphocytes # (Auto) 1.6 x10^3/uL (1.0-4.8) Monocytes # (Auto) 1.0 x10^3/uL (0.0-1.1) Eosinophils # (Auto) 0.0 x10^3/uL (0.0-0.7) Basophils # (Auto) 0.1 x10^3/uL (0.0-0.2) Heparin Anti-Xa Act, Unfractionated 0.56 IU/mL (0.30-0.70) Sodium Level 141 mmol/L (136-145) Potassium Level 3.1 mmol/L (3.5-5.1) Chloride Level 106 mmol/L (98-107) Carbon Dioxide Level 25 mmol/L (21-32) Anion Gap 10 (6-14) Blood Urea Nitrogen 27 mg/dL (8-26) Creatinine 3.2 mg/dL (0.7-1.3) Estimated GFR (Cockcroft-Gault) 23.1 BUN/Creatinine Ratio 8 (6-20) Glucose Level 71 mg/dL (70-99) Calcium Level 8.0 mg/dL (8.5-10.1) Total Bilirubin 0.7 mg/dL (0.2-1.0) Aspartate Amino Transf (AST/SGOT) 35 U/L (15-37) Alanine Aminotransferase (ALT/SGPT) 19 U/L (16-63) Alkaline Phosphatase 41 U/L (46-116) Troponin I Quantitative 2.618 ng/mL (0.000-0.055) Total Protein 5.7 g/dL (6.4-8.2) Albumin 2.2 g/dL (3.4-5.0) Albumin/Globulin Ratio 0.6 (1.0-1.7) O2 Saturation 95 % (92-99) Arterial Blood pH 7.49 (7.35-7.45) Arterial Blood pCO2 at Patient Temp 31 mmHg (35-46) Arterial Blood pO2 at Patient Temp 73 mmHg (65-108) Arterial Blood HCO3 23 mmol/L (21-28) Arterial Blood Base Excess 0 mmol/L (-3-3) FiO2 50% vent Laboratory Tests Test 04/24/21 12:15 04/24/21 13:00 04/24/21 16:35 04/24/21 18:30 White Blood Count 20.0 x10^3/uL (4.0-11.0) Red Blood Count 3.98 x10^6/uL (4.30-5.70) Hemoglobin 10.7 g/dL (13.0-17.5) Hematocrit 33.1 % (39.0-53.0) Mean Corpuscular Volume 83 fL (79-100) Mean Corpuscular Hemoglobin 27 pg (25-35) Mean Corpuscular Hemoglobin Concent 32 g/dL (31-37) Red Cell Distribution Width 15.6 % (11.5-14.5) Platelet Count 268 x10^3/uL (140-400) Neutrophils (%) (Auto) 74 % (31-73) Lymphocytes (%) (Auto) 15 % (24-48) Monocytes (%) (Auto) 10 % (0-9) Eosinophils (%) (Auto) 0 % (0-3) Basophils (%) (Auto) 1 % (0-3) Neutrophils # (Auto) 14.8 x10^3/uL (1.8-7.7) Lymphocytes # (Auto) 3.1 x10^3/uL (1.0-4.8) Monocytes # (Auto) 2.0 x10^3/uL (0.0-1.1) Eosinophils # (Auto) 0.0 x10^3/uL (0.0-0.7) Basophils # (Auto) 0.1 x10^3/uL (0.0-0.2) Segmented Neutrophils % 73 % (35-66) Band Neutrophils % 2 % (0-9) Lymphocytes % 19 % (24-48) Monocytes % 5 % (0-10) Basophils % 1 % (0-3) Platelet Estimate Adequate (ADEQUATE) Sodium Level 140 mmol/L (136-145) Potassium Level 3.8 mmol/L (3.5-5.1) Chloride Level 104 mmol/L (98-107) Carbon Dioxide Level 26 mmol/L (21-32) Anion Gap 10 (6-14) Blood Urea Nitrogen 21 mg/dL (8-26) Creatinine 2.9 mg/dL (0.7-1.3) Estimated GFR (Cockcroft-Gault) 25.9 BUN/Creatinine Ratio 7 (6-20) Glucose Level 162 mg/dL (70-99) Calcium Level 9.0 mg/dL (8.5-10.1) Magnesium Level 1.9 mg/dL (1.8-2.4) Total Bilirubin 0.8 mg/dL (0.2-1.0) Aspartate Amino Transf (AST/SGOT) 22 U/L (15-37) Alanine Aminotransferase (ALT/SGPT) 22 U/L (16-63) Alkaline Phosphatase 48 U/L (46-116) Troponin I Quantitative 1.372 ng/mL (0.000-0.055) 1.982 ng/mL (0.000-0.055) RK-Ggn-Q-Type Natriuretic Peptide 49809 pg/mL (0-124) Total Protein 6.9 g/dL (6.4-8.2) Albumin 3.0 g/dL (3.4-5.0) Albumin/Globulin Ratio 0.8 (1.0-1.7) Procalcitonin 0.13 ng/mL (0.00-0.10) SARS-CoV-2 RNA (PIEDAD) Positive (Negative) O2 Saturation 99 % (92-99) Arterial Blood pH 7.47 (7.35-7.45) Arterial Blood pCO2 at Patient Temp 31 mmHg (35-46) Arterial Blood pO2 at Patient Temp 158 mmHg (65-108) Arterial Blood HCO3 22 mmol/L (21-28) Arterial Blood Base Excess -1 mmol/L (-3-3) Oxyhemoglobin 98.1 % Methemoglobin 0.3 % (0.0-1.9) Carbon Monoxide, Quantitative 0.3 % (0.0-1.9) FiO2 100 Test 04/24/21 18:36 04/24/21 23:10 04/24/21 23:40 04/24/21 23:55 Glucose (Fingerstick) 124 mg/dL (70-99) 61 mg/dL (70-99) 108 mg/dL (70-99) Heparin Anti-Xa Act, Unfractionated < 0.10 IU/mL (0.30-0.70) Test 04/25/21 05:34 04/25/21 05:48 04/25/21 07:10 04/25/21 09:00 Glucose (Fingerstick) 56 mg/dL (70-99) 106 mg/dL (70-99) White Blood Count 15.2 x10^3/uL (4.0-11.0) Red Blood Count 3.58 x10^6/uL (4.30-5.70) Hemoglobin 9.6 g/dL (13.0-17.5) Hematocrit 29.5 % (39.0-53.0) Mean Corpuscular Volume 82 fL (79-100) Mean Corpuscular Hemoglobin 27 pg (25-35) Mean Corpuscular Hemoglobin Concent 33 g/dL (31-37) Red Cell Distribution Width 15.5 % (11.5-14.5) Platelet Count 211 x10^3/uL (140-400) Neutrophils (%) (Auto) 83 % (31-73) Lymphocytes (%) (Auto) 11 % (24-48) Monocytes (%) (Auto) 7 % (0-9) Eosinophils (%) (Auto) 0 % (0-3) Basophils (%) (Auto) 0 % (0-3) Neutrophils # (Auto) 12.5 x10^3/uL (1.8-7.7) Lymphocytes # (Auto) 1.6 x10^3/uL (1.0-4.8) Monocytes # (Auto) 1.0 x10^3/uL (0.0-1.1) Eosinophils # (Auto) 0.0 x10^3/uL (0.0-0.7) Basophils # (Auto) 0.1 x10^3/uL (0.0-0.2) Heparin Anti-Xa Act, Unfractionated 0.56 IU/mL (0.30-0.70) Sodium Level 141 mmol/L (136-145) Potassium Level 3.1 mmol/L (3.5-5.1) Chloride Level 106 mmol/L (98-107) Carbon Dioxide Level 25 mmol/L (21-32) Anion Gap 10 (6-14) Blood Urea Nitrogen 27 mg/dL (8-26) Creatinine 3.2 mg/dL (0.7-1.3) Estimated GFR (Cockcroft-Gault) 23.1 BUN/Creatinine Ratio 8 (6-20) Glucose Level 71 mg/dL (70-99) Calcium Level 8.0 mg/dL (8.5-10.1) Total Bilirubin 0.7 mg/dL (0.2-1.0) Aspartate Amino Transf (AST/SGOT) 35 U/L (15-37) Alanine Aminotransferase (ALT/SGPT) 19 U/L (16-63) Alkaline Phosphatase 41 U/L (46-116) Troponin I Quantitative 2.618 ng/mL (0.000-0.055) Total Protein 5.7 g/dL (6.4-8.2) Albumin 2.2 g/dL (3.4-5.0) Albumin/Globulin Ratio 0.6 (1.0-1.7) O2 Saturation 95 % (92-99) Arterial Blood pH 7.49 (7.35-7.45) Arterial Blood pCO2 at Patient Temp 31 mmHg (35-46) Arterial Blood pO2 at Patient Temp 73 mmHg (65-108) Arterial Blood HCO3 23 mmol/L (21-28) Arterial Blood Base Excess 0 mmol/L (-3-3) FiO2 50% vent Medications Active Scripts Medications Dose Route/Sig Max Daily Dose Days Date Category Glyburide 2.5 Mg Tablet 1 Tab PO DAILY 04/19/21 Rx Polyethylene Glycol 3350 17 Gm Powd.pack 17 Gm PO DAILY 04/19/21 Rx Dok (Docusate Sodium) 100 Mg Capsule 100 Mg PO PRN DAILY PRN 30 04/19/21 Rx Bisacodyl 5 Mg Tablet.dr 5 Mg PO PRN DAILY PRN 04/19/21 Rx Acetaminophen 325 Mg Tablet 650 Mg PO PRN Q4HRS PRN 04/19/21 Rx Aspirin Ec (Aspirin) 81 Mg Tablet.dr 81 Mg PO [id number] 04/19/21 Rx Hydralazine Hcl 25 Mg Tablet 25 Mg PO QID 04/19/21 Rx Fenofibrate 54 Mg Tablet 1 Tab PO DAILY 04/17/21 Reported Potassium Chloride (Potassium Chloride) 20 Meq Tablet.er 20 Meq PO DAILY 04/17/21 Reported Coreg (Carvedilol) 12.5 Mg Tablet 37.5 Mg PO BIDWMEALS 04/17/21 Reported Rosuvastatin Calcium 40 Mg Tablet 40 Mg PO QHS 04/17/21 Reported Gabapentin (Gabapentin) 100 Mg Capsule 200 Mg PO BID 04/17/21 Reported Montelukast Sodium Tablet (Montelukast Sodium) 10 Mg Tablet 10 Mg PO HS 04/17/21 Reported Protonix (Pantoprazole Sodium) 20 Mg Tablet. 2 Tab PO DAILY 04/17/21 Reported Amlodipine Besylate 5 Mg Tablet 5 Mg PO DAILY 04/17/21 Reported Furosemide 40 Mg Tablet 1 Tab PO DAILY 04/17/21 Reported Proair Hfa Inhaler (Albuterol Sulfate) 8.5 Gm Hfa.aer.ad 2 Puff IH PRN Q4-6HRS PRN 21 04/16/21 Reported Advair 100-50 Diskus (Fluticasone/Salmeterol) 1 Each Disk.w.dev 1 Puff IH BID 04/16/21 Reported Comments CXR 04/25/21 Improved bilateral patchy infiltrates and cardiomegaly Impression . IMPRESSION: 1. Acute hypoxic respiratory failure secondary to bilateral diffuse interstitial infiltrates. --COVID-[address] chest with bilateral diffuse interstitial infiltrates without any significant pleural effusion. 3. History of recent hospitalization for abdominal pain. He was supposed to have cardiac testing and outpatient stress test. Now, he is hospitalized. Echo with normal ejection fraction and moderate left ventricular hypertrophy. 4. Abnormal troponin, likely [id number]-NG-hoyryfa elevation myocardial infarction. 5. History of tobacco use, details of length not available. 6. Chronic kidney disease. Plan . Updated 04/25/2021 Continue current vent support assist-control mode 26/500/50%/5 ABG/chest x-ray reviewed, reduce respiratory rate to 20 Continue empiric antibiotics with cefepime Continue steroids Continue remdesivir Follow cardiology recommendations continue heparin drip Follow nephrology recs COVID-19 positive Consult dietitian to initiate tube feeding DVT/GI prophylaxis Discussed with RN and RT Critical care time 35 minutes RECOMMENDATIONS: 1. Continue present assist control mode and follow ABGs and make necessary adjustments. 2. The patient is status post diuresis. We will follow chest x-ray. 3. Monitor renal function while on diuresis. 4. Continue empiric antibiotic. 5. Rule out COVID viral pneumonia. 6. Continue heparin per protocol for non-STEMI. 7. Continue sedation. 8. Follow all cultures. 9. Discussed with RN, chart reviewed, imaging studies reviewed. Total critical care time 35 minutes. We will follow along with you. JONES FISHMAN MD Apr 25, 2021 11:06
[2021-04-25] MEDS ORDERED: FUROSEMIDE 40 MG/4 ML VIAL. IVP ONE (11:30)
[2021-04-25] MEDS ORDERED: METOPROLOL IV PUSH 5 MG/5 ML VIAL. IVP ONE (11:30)
--- NOTE | 2021-04-25 12:21 | PDOC2 ---
CONSULT Date of Consult Date of Consult DATE: 04/25/21 TIME: 11:19 Reason for Consult Reason for Consult: ILDA Identification/Chief Complaint Chief Complaint Intubated , on MV, unable to obtain Source Source: Chart review History of Present Illness Reason for Visit: Patient is a 75 year-old AA male with history of CAD, hypertension, COPD,history of subclavian steal syndrome, status post subclavian stent placement complicated by retroperitoneal hematoma He was brought into the hospital with increasing shortness of breath, found to be hypoxic with no improvement in oxygen saturation with Nasal cannula. Currently intubated on MV He was recently discharged from the hospital on April 19, 2021 for abdominal pain and was going for further cardiac testing with outpatient stress testing scheduled on May 28, 2021. Chest radiograph with diffuse interstitial and alveolar opacities at presentation Past Medical History Cardiovascular: CAD, HTN, Hyperlipidemia, Other Pulmonary: Asthma, COPD, Other Heme/Onc: Anemia NOS Hepatobiliary: No pertinent hx Musculoskeletal: Osteoarthritis, Other Rheumatologic: Gout Renal/: Chronic renal insuff, Other Endocrine: Diabetes Past Surgical History Past Surgical History: Other (see PMH) Family History Family History: Family History Unknown Social History Quit ALCOHOL: other Drugs: Marijuana Lives: with Family Current Problem List Problem List Problems Medical Problems: (1) Elevated troponin Status: Acute (2) Pulmonary edema Status: Acute Current Medications Current Medications Current Medications Propofol 100 ml @ As Directed STK-MED ONCE IV ; Start 04/24/21 at 12:36; Stop 04/24/21 at 12:36; Status DC Etomidate (Amidate) 20 mg STK-MED ONCE IV ; Start 04/24/21 at 13:38; Stop 04/24/21 at 13:38; Status DC Succinylcholine Chloride (Anectine) 200 mg STK-MED ONCE .ROUTE ; Start 04/24/21 at 13:38; Stop 04/24/21 at 13:38; Status DC Fentanyl Citrate (Fentanyl 2ml Vial) 50 mcg PRN Q1HR PRN IV PAIN; Start at 14:00; Stop 04/24/21 at 14:14; Status DC Acetaminophen (Tylenol) 650 mg PRN Q6HRS PRN PO Headaches, Temp > 101.5' Last administered on 04/25/21at 09:30; Start 04/24/21 at 14:00 Ondansetron HCl (Zofran) 4 mg PRN Q6HRS PRN IVP NAUSEA/VOMITING; Start 04/24/21 at 14:00; Status Cancel Sodium Chloride (Normal Saline Flush) 3 ml QSHIFT PRN IV AFTER MEDS AND BLOOD DRAWS; Start 04/24/21 at 14:00 Fentanyl Citrate (Fentanyl 2ml Vial) 25 mcg PRN Q1HR PRN IV SEVERE PAIN 7-10; Start 04/24/21 at 14:00; Stop 04/24/21 at 14:14; Status DC Bisacodyl (Dulcolax Supp) 10 mg PRN DAILY PRN SC CONSTIPATION; Start 04/24/21 at 14:00 Fentanyl Citrate 30 ml @ 0 mls/hr CONT PRN IV SEE PROTOCOL; Start 04/24/21 at 14:00; Stop 04/24/21 at 14:12; Status DC Propofol 100 ml @ 0 mls/hr CONT PRN IV PER PROTOCOL Last administered on 04/24/21at 15:12; Start 04/24/21 at 14:00; Stop 04/24/21 at 15:19; Status DC Chlorhexidine Gluconate (Peridex) 15 ml BID MM Last administered on 04/24/21at 20:49; Start 04/24/21 at 21:00 Acetaminophen (Tylenol) 650 mg PRN Q6HRS PRN PO Headaches, Temp > 101.5'; Start 04/24/21 at 14:00; Status Cancel Ondansetron HCl (Zofran) 4 mg PRN Q6HRS PRN IVP NAUSEA/VOMITING; Start 04/24/21 at 14:00 Fentanyl Citrate (Fentanyl 2ml Vial) 25 mcg PRN Q1HR PRN IV SEVERE PAIN 7-10 Last administered on 04/24/21at 16:39; Start 04/24/21 at 14:00 Fentanyl Citrate 30 ml @ 0 mls/hr CONT PRN IV SEE PROTOCOL Last administered on 04/25/21at 10:35; Start 04/24/21 at 14:00 Aspirin (Ecotrin) 81 mg DAILYWBKFT PO ; Start 04/25/21 at 08:00 Carvedilol (Coreg) 37.5 mg BIDWMEALS PO ; Start 04/24/21 at 17:00; Stop 04/24/21 at 16:17; Status DC Montelukast Sodium (Singulair) 10 mg HS PO Last administered on 04/24/21at 20:49; Start 04/24/21 at 21:00 Atorvastatin Calcium (Lipitor) 80 mg QHS PO Last administered on 04/24/21at 20:49; Start 04/24/21 at 21:00 Heparin Sodium (Porcine) (Heparin Sodium) 5,000 unit Q8HRS SQ ; Start 04/24/21 at 22:00; Status Cancel Furosemide (Lasix) 40 mg 1X ONCE IVP Last administered on 04/24/21at 16:45; Start 04/24/21 at 15:15; Stop 04/24/21 at 15:19; Status DC Propofol 100 ml @ 0 mls/hr CONT PRN IV PER PROTOCOL Last administered on 04/06 10/26at 10:41; Start 04/24/21 at 15:30 Carvedilol (Coreg) 3.125 mg BIDWMEALS PO Last administered on 04/25/21at 09:23; Start 04/24/21 at 17:00 Cefepime HCl (Maxipime) 2 gm 1X ONCE IVP Last administered on 04/24/21at 18:27; Start 04/24/21 at 16:30; Stop 04/24/21 at 16:31; Status DC Insulin Human Lispro (HumaLOG) 0-9 UNITS Q6HRS SQ ; Start 04/24/21 at 18:00 Dextrose (Dextrose 50%-Water Syringe) 12.5 gm PRN Q15MIN PRN IV SEE COMMENTS Last administered on 04/24/21at 23:43; Start 04/24/21 at 16:30 Heparin Sodium/ Dextrose 250 ml @ 0 mls/hr CONT PRN IV PER PROTOCOL Last administered on 04/24/21at 17:35; Start 04/24/21 at 16:45 Heparin Sodium (Porcine) (Heparin Sodium) 3,200 unit PRN Q6HRS PRN IV FOR UFH LEVEL LESS THAN 0.2 Last administered on 04/24/21at 23:32; Start 04/24/21 at 16:45 Cefepime HCl (Maxipime) 1 gm Q12HR IVP Last administered on 04/25/21at 09:22; Start 04/25/21 at 09:00 Furosemide (Lasix) 40 mg 1X ONCE IVP ; Start 04/25/21 at 11:30; Stop 04/25/21 at 11:31 Active Scripts Active Glyburide 2.5 Mg Tablet 1 Tab PO DAILY 14 Days Polyethylene Glycol 3350 17 Gm Powd.pack 17 Gm PO DAILY 14 Days Dok (Docusate Sodium) 100 Mg Capsule 100 Mg PO PRN DAILY PRN 30 Days Bisacodyl 5 Mg Tablet.dr 5 Mg PO PRN DAILY PRN 14 Days Acetaminophen 325 Mg Tablet 650 Mg PO PRN Q4HRS PRN 14 Days Aspirin Ec (Aspirin) 81 Mg Tablet.dr 81 Mg PO DAILYWBKFT 30 Days Hydralazine Hcl 25 Mg Tablet 25 Mg PO QID 30 Days Reported Fenofibrate 54 Mg Tablet 1 Tab PO DAILY Potassium Chloride (Potassium Chloride) 20 Meq Tablet.er 20 Meq PO DAILY Coreg (Carvedilol) 12.5 Mg Tablet 37.5 Mg PO BIDWMEALS Rosuvastatin Calcium 40 Mg Tablet 40 Mg PO QHS Gabapentin (Gabapentin) 100 Mg Capsule 200 Mg PO BID Montelukast Sodium Tablet (Montelukast Sodium) 10 Mg Tablet 10 Mg PO HS Protonix (Pantoprazole Sodium) 20 Mg Tablet.dr 2 Tab PO DAILY Amlodipine Besylate 5 Mg Tablet 5 Mg PO DAILY Furosemide 40 Mg Tablet 1 Tab PO DAILY Proair Hfa Inhaler (Albuterol Sulfate) 8.5 Gm Hfa.aer.ad 2 Puff IH PRN Q4-6HRS PRN 21 Days Advair 100-50 Diskus (Fluticasone/Salmeterol) 1 Each Disk.w.dev 1 Puff IH BID Allergies Allergies: Coded Allergies: Penicillins (Verified Allergy, Intermediate, 04/16/21) morphine (Verified Allergy, Intermediate, 04/16/21) itches real bad all over ROS Review of System Unable to Obtain 2/2 MV/Intubated Physical Exam Physical Exam General - Intubated, MV HEEN OM moist Neck supple Lungs CTA, Non labored CV RRR Abd Soft, NT Ext No LE edema Nieves + Neuro Soft, BS + Psych Unable to assess Vital Signs Vital Signs Date Time Temp Pulse Resp B/P (MAP) Pulse Ox O2 Delivery O2 Flow Rate FiO2 04/25/21 11:09 140 20 125/75 (92) 97 Ventilator 04/25/21 09:24 102.7 102.7 Assessment & Plan ILDA on CKD - ATN 2/2 sepsis/ Hypotension, Non Oliguric , maintain fluid balance , E-Lytes stable, Currently no indication for emergent dialysis . Supportive care , avoid nephrotoxins, Monitor CKD stage 4 - Baseline Cr 2.4 -2.7 ,Mild echogenic appearing right kidney probably medical renal disease. Recent CT Atrophic appearance of the right kidney HypoKalemia - Replace Cholelithiasis Anemia DM II Hypotension - Low BP, at presentation , resolved HTN- antihypertensives Acute respiratory failure with Hypoxia - appears secondary to pulmonary edema vs pneumonia. Cxr interpreted Improving bilateral perihilar and basilar opacities Currently Intubated NSTEMI - possibly demand ischemia SIRS - likely sepsis from HCAP H/o bilateral subclavian stenosis s/p left subclavian sent placement complicated by retroperitoneal hematoma s/p evacuation in 08/2015. Hx of Marijuana use Labs Labs Laboratory Tests Test 04/24/21 12:15 04/24/21 13:00 04/24/21 16:35 04/24/21 18:30 White Blood Count 20.0 x10^3/uL (4.0-11.0) Red Blood Count 3.98 x10^6/uL (4.30-5.70) Hemoglobin 10.7 g/dL (13.0-17.5) Hematocrit 33.1 % (39.0-53.0) Mean Corpuscular Volume 83 fL (79-100) Mean Corpuscular Hemoglobin 27 pg (25-35) Mean Corpuscular Hemoglobin Concent 32 g/dL (31-37) Red Cell Distribution Width 15.6 % (11.5-14.5) Platelet Count 268 x10^3/uL (140-400) Neutrophils (%) (Auto) 74 % (31-73) Lymphocytes (%) (Auto) 15 % (24-48) Monocytes (%) (Auto) 10 % (0-9) Eosinophils (%) (Auto) 0 % (0-3) Basophils (%) (Auto) 1 % (0-3) Neutrophils # (Auto) 14.8 x10^3/uL (1.8-7.7) Lymphocytes # (Auto) 3.1 x10^3/uL (1.0-4.8) Monocytes # (Auto) 2.0 x10^3/uL (0.0-1.1) Eosinophils # (Auto) 0.0 x10^3/uL (0.0-0.7) Basophils # (Auto) 0.1 x10^3/uL (0.0-0.2) Segmented Neutrophils % 73 % (35-66) Band Neutrophils % 2 % (0-9) Lymphocytes % 19 % (24-48) Monocytes % 5 % (0-10) Basophils % 1 % (0-3) Platelet Estimate Adequate (ADEQUATE) Sodium Level 140 mmol/L (136-145) Potassium Level 3.8 mmol/L (3.5-5.1) Chloride Level 104 mmol/L (98-107) Carbon Dioxide Level 26 mmol/L (21-32) Anion Gap 10 (6-14) Blood Urea Nitrogen 21 mg/dL (8-26) Creatinine 2.9 mg/dL (0.7-1.3) Estimated GFR (Cockcroft-Gault) 25.9 BUN/Creatinine Ratio 7 (6-20) Glucose Level 162 mg/dL (70-99) Calcium Level 9.0 mg/dL (8.5-10.1) Magnesium Level 1.9 mg/dL (1.8-2.4) Total Bilirubin 0.8 mg/dL (0.2-1.0) Aspartate Amino Transf (AST/SGOT) 22 U/L (15-37) Alanine Aminotransferase (ALT/SGPT) 22 U/L (16-63) Alkaline Phosphatase 48 U/L (46-116) Troponin I Quantitative 1.372 ng/mL (0.000-0.055) 1.982 ng/mL (0.000-0.055) HP-Fbo-M-Type Natriuretic Peptide 55214 pg/mL (0-124) Total Protein 6.9 g/dL (6.4-8.2) Albumin 3.0 g/dL (3.4-5.0) Albumin/Globulin Ratio 0.8 (1.0-1.7) Procalcitonin 0.13 ng/mL (0.00-0.10) SARS-CoV-2 RNA (PIEDAD) Positive (Negative) O2 Saturation 99 % (92-99) Arterial Blood pH 7.47 (7.35-7.45) Arterial Blood pCO2 at Patient Temp 31 mmHg (35-46) Arterial Blood pO2 at Patient Temp 158 mmHg (65-108) Arterial Blood HCO3 22 mmol/L (21-28) Arterial Blood Base Excess -1 mmol/L (-3-3) Oxyhemoglobin 98.1 % Methemoglobin 0.3 % (0.0-1.9) Carbon Monoxide, Quantitative 0.3 % (0.0-1.9) FiO2 100 Test 04/24/21 18:36 04/24/21 23:10 04/24/21 23:40 04/24/21 23:55 Glucose (Fingerstick) 124 mg/dL (70-99) 61 mg/dL (70-99) 108 mg/dL (70-99) Heparin Anti-Xa Act, Unfractionated < 0.10 IU/mL (0.30-0.70) Test 04/25/21 05:34 04/25/21 05:48 04/25/21 07:10 04/25/21 09:00 Glucose (Fingerstick) 56 mg/dL (70-99) 106 mg/dL (70-99) White Blood Count 15.2 x10^3/uL (4.0-11.0) Red Blood Count 3.58 x10^6/uL (4.30-5.70) Hemoglobin 9.6 g/dL (13.0-17.5) Hematocrit 29.5 % (39.0-53.0) Mean Corpuscular Volume 82 fL (79-100) Mean Corpuscular Hemoglobin 27 pg (25-35) Mean Corpuscular Hemoglobin Concent 33 g/dL (31-37) Red Cell Distribution Width 15.5 % (11.5-14.5) Platelet Count 211 x10^3/uL (140-400) Neutrophils (%) (Auto) 83 % (31-73) Lymphocytes (%) (Auto) 11 % (24-48) Monocytes (%) (Auto) 7 % (0-9) Eosinophils (%) (Auto) 0 % (0-3) Basophils (%) (Auto) 0 % (0-3) Neutrophils # (Auto) 12.5 x10^3/uL (1.8-7.7) Lymphocytes # (Auto) 1.6 x10^3/uL (1.0-4.8) Monocytes # (Auto) 1.0 x10^3/uL (0.0-1.1) Eosinophils # (Auto) 0.0 x10^3/uL (0.0-0.7) Basophils # (Auto) 0.1 x10^3/uL (0.0-0.2) Heparin Anti-Xa Act, Unfractionated 0.56 IU/mL (0.30-0.70) Sodium Level 141 mmol/L (136-145) Potassium Level 3.1 mmol/L (3.5-5.1) Chloride Level 106 mmol/L (98-107) Carbon Dioxide Level 25 mmol/L (21-32) Anion Gap 10 (6-14) Blood Urea Nitrogen 27 mg/dL (8-26) Creatinine 3.2 mg/dL (0.7-1.3) Estimated GFR (Cockcroft-Gault) 23.1 BUN/Creatinine Ratio 8 (6-20) Glucose Level 71 mg/dL (70-99) Calcium Level 8.0 mg/dL (8.5-10.1) Total Bilirubin 0.7 mg/dL (0.2-1.0) Aspartate Amino Transf (AST/SGOT) 35 U/L (15-37) Alanine Aminotransferase (ALT/SGPT) 19 U/L (16-63) Alkaline Phosphatase 41 U/L (46-116) Troponin I Quantitative 2.618 ng/mL (0.000-0.055) Total Protein 5.7 g/dL (6.4-8.2) Albumin 2.2 g/dL (3.4-5.0) Albumin/Globulin Ratio 0.6 (1.0-1.7) O2 Saturation 95 % (92-99) Arterial Blood pH 7.49 (7.35-7.45) Arterial Blood pCO2 at Patient Temp 31 mmHg (35-46) Arterial Blood pO2 at Patient Temp 73 mmHg (65-108) Arterial Blood HCO3 23 mmol/L (21-28) Arterial Blood Base Excess 0 mmol/L (-3-3) FiO2 50% vent Laboratory Tests Test 04/24/21 12:15 04/24/21 13:00 04/24/21 16:35 04/24/21 18:30 White Blood Count 20.0 x10^3/uL (4.0-11.0) Red Blood Count 3.98 x10^6/uL (4.30-5.70) Hemoglobin 10.7 g/dL (13.0-17.5) Hematocrit 33.1 % (39.0-53.0) Mean Corpuscular Volume 83 fL (79-100) Mean Corpuscular Hemoglobin 27 pg (25-35) Mean Corpuscular Hemoglobin Concent 32 g/dL (31-37) Red Cell Distribution Width 15.6 % (11.5-14.5) Platelet Count 268 x10^3/uL (140-400) Neutrophils (%) (Auto) 74 % (31-73) Lymphocytes (%) (Auto) 15 % (24-48) Monocytes (%) (Auto) 10 % (0-9) Eosinophils (%) (Auto) 0 % (0-3) Basophils (%) (Auto) 1 % (0-3) Neutrophils # (Auto) 14.8 x10^3/uL (1.8-7.7) Lymphocytes # (Auto) 3.1 x10^3/uL (1.0-4.8) Monocytes # (Auto) 2.0 x10^3/uL (0.0-1.1) Eosinophils # (Auto) 0.0 x10^3/uL (0.0-0.7) Basophils # (Auto) 0.1 x10^3/uL (0.0-0.2) Segmented Neutrophils % 73 % (35-66) Band Neutrophils % 2 % (0-9) Lymphocytes % 19 % (24-48) Monocytes % 5 % (0-10) Basophils % 1 % (0-3) Platelet Estimate Adequate (ADEQUATE) Sodium Level 140 mmol/L (136-145) Potassium Level 3.8 mmol/L (3.5-5.1) Chloride Level 104 mmol/L (98-107) Carbon Dioxide Level 26 mmol/L (21-32) Anion Gap 10 (6-14) Blood Urea Nitrogen 21 mg/dL (8-26) Creatinine 2.9 mg/dL (0.7-1.3) Estimated GFR (Cockcroft-Gault) 25.9 BUN/Creatinine Ratio 7 (6-20) Glucose Level 162 mg/dL (70-99) Calcium Level 9.0 mg/dL (8.5-10.1) Magnesium Level 1.9 mg/dL (1.8-2.4) Total Bilirubin 0.8 mg/dL (0.2-1.0) Aspartate Amino Transf (AST/SGOT) 22 U/L (15-37) Alanine Aminotransferase (ALT/SGPT) 22 U/L (16-63) Alkaline Phosphatase 48 U/L (46-116) Troponin I Quantitative 1.372 ng/mL (0.000-0.055) 1.982 ng/mL (0.000-0.055) LA-Pif-Y-Type Natriuretic Peptide 67085 pg/mL (0-124) Total Protein 6.9 g/dL (6.4-8.2) Albumin 3.0 g/dL (3.4-5.0) Albumin/Globulin Ratio 0.8 (1.0-1.7) Procalcitonin 0.13 ng/mL (0.00-0.10) SARS-CoV-2 RNA (PIEDAD) Positive (Negative) O2 Saturation 99 % (92-99) Arterial Blood pH 7.47 (7.35-7.45) Arterial Blood pCO2 at Patient Temp 31 mmHg (35-46) Arterial Blood pO2 at Patient Temp 158 mmHg (65-108) Arterial Blood HCO3 22 mmol/L (21-28) Arterial Blood Base Excess -1 mmol/L (-3-3) Oxyhemoglobin 98.1 % Methemoglobin 0.3 % (0.0-1.9) Carbon Monoxide, Quantitative 0.3 % (0.0-1.9) FiO2 100 Test 04/24/21 18:36 04/24/21 23:10 04/24/21 23:40 04/24/21 23:55 Glucose (Fingerstick) 124 mg/dL (70-99) 61 mg/dL (70-99) 108 mg/dL (70-99) Heparin Anti-Xa Act, Unfractionated < 0.10 IU/mL (0.30-0.70) Test 04/25/21 05:34 04/25/21 05:48 04/25/21 07:10 04/25/21 09:00 Glucose (Fingerstick) 56 mg/dL (70-99) 106 mg/dL (70-99) White Blood Count 15.2 x10^3/uL (4.0-11.0) Red Blood Count 3.58 x10^6/uL (4.30-5.70) Hemoglobin 9.6 g/dL (13.0-17.5) Hematocrit 29.5 % (39.0-53.0) Mean Corpuscular Volume 82 fL (79-100) Mean Corpuscular Hemoglobin 27 pg (25-35) Mean Corpuscular Hemoglobin Concent 33 g/dL (31-37) Red Cell Distribution Width 15.5 % (11.5-14.5) Platelet Count 211 x10^3/uL (140-400) Neutrophils (%) (Auto) 83 % (31-73) Lymphocytes (%) (Auto) 11 % (24-48) Monocytes (%) (Auto) 7 % (0-9) Eosinophils (%) (Auto) 0 % (0-3) Basophils (%) (Auto) 0 % (0-3) Neutrophils # (Auto) 12.5 x10^3/uL (1.8-7.7) Lymphocytes # (Auto) 1.6 x10^3/uL (1.0-4.8) Monocytes # (Auto) 1.0 x10^3/uL (0.0-1.1) Eosinophils # (Auto) 0.0 x10^3/uL (0.0-0.7) Basophils # (Auto) 0.1 x10^3/uL (0.0-0.2) Heparin Anti-Xa Act, Unfractionated 0.56 IU/mL (0.30-0.70) Sodium Level 141 mmol/L (136-145) Potassium Level 3.1 mmol/L (3.5-5.1) Chloride Level 106 mmol/L (98-107) Carbon Dioxide Level 25 mmol/L (21-32) Anion Gap 10 (6-14) Blood Urea Nitrogen 27 mg/dL (8-26) Creatinine 3.2 mg/dL (0.7-1.3) Estimated GFR (Cockcroft-Gault) 23.1 BUN/Creatinine Ratio 8 (6-20) Glucose Level 71 mg/dL (70-99) Calcium Level 8.0 mg/dL (8.5-10.1) Total Bilirubin 0.7 mg/dL (0.2-1.0) Aspartate Amino Transf (AST/SGOT) 35 U/L (15-37) Alanine Aminotransferase (ALT/SGPT) 19 U/L (16-63) Alkaline Phosphatase 41 U/L (46-116) Troponin I Quantitative 2.618 ng/mL (0.000-0.055) Total Protein 5.7 g/dL (6.4-8.2) Albumin 2.2 g/dL (3.4-5.0) Albumin/Globulin Ratio 0.6 (1.0-1.7) O2 Saturation 95 % (92-99) Arterial Blood pH 7.49 (7.35-7.45) Arterial Blood pCO2 at Patient Temp 31 mmHg (35-46) Arterial Blood pO2 at Patient Temp 73 mmHg (65-108) Arterial Blood HCO3 23 mmol/L (21-28) Arterial Blood Base Excess 0 mmol/L (-3-3) FiO2 50% vent Review All relevant outside records, renal labs, imaging studies, telemetry/EKG's were reviewed. Images Images Cxr-- XR CHEST 1V INDICATION: Reason: CHF VS PNA/ RF 104 / Spl. Instructions: / History: . COMPARISON STUDY: 04/24/2021. FINDINGS: Life Support Devices: Stable endotracheal tube, enteric tube. Lungs: Normal lung volume. Improving bilateral perihilar and basilar opacities. Pleura: Small left greater than right pleural effusions. Heart and Mediastinum: Stable cardiomediastinal silhouette and great vessels. IMPRESSION: 1. Improving bilateral perihilar and basilar opacities. 2. Small left greater than right pleural effusions. 3. Stable life support devices. EXAM: ULTRASOUND ABDOMEN LIMITED CLINICAL HISTORY: Cholelithiasis COMPARISON: None available. TECHNIQUE: Limited ultrasound examination of the right upper quadrant of the abdomen was performed. FINDINGS: The pancreas, IVC, aorta is not well-visualized due to bowel gas. Mild emphysematous identified in the liver likely hepatic steatosis. Few echogenicities identified within the gallbladder likely gallstones. Gallbladder wall thickness measures 3.3 mm. The right kidney measures 8.7 x 4.4 cm. Mild echogenic appearing right kidney. 1.6 cm cyst right kidney. IMPRESSION: 1.Cholelithiasis. 2. Mild echogenic appearing right kidney probably medical renal disease. 3. 1.6 cm cyst right kidney. JASMEET LAM MD Apr 25, 2021 12:21
[2021-04-25] MEDS: HEPARIN 25,000UTS/250ML PREMIX 250 ML IV PRN (12:59)
[2021-04-25] MEDS: ANTI-COAG MONITOR BY PHARMACY. MC PRN (13:00)
--- NOTE | 2021-04-25 14:21 | PDOC ---
[employer] 04/25/21 1421: CARDIO Progress Notes Date and Time Date of Service 04/25/21 Time of Evaluation 1400 Subjective Subjective: Other (intubated ) Vitals Vitals Vital Signs Date Time Temp Pulse Resp B/P (MAP) Pulse Ox O2 Delivery O2 Flow Rate FiO2 04/25/21 14:08 147 23 151/88 (109) 98 Ventilator 04/25/21 12:15 103.0 103.0 Weight Weight [ ] Input and Output Intake and Output Intake and Output 04/25/21 07:00 Intake Total 698 ml Output Total 1425 ml Balance -727 ml Intake IV Total 698 ml Output Urine Total 1425 ml Laboratory Labs Laboratory Tests Test 04/24/21 16:35 04/24/21 18:30 04/24/21 18:36 04/24/21 23:10 O2 Saturation 99 % (92-99) Arterial Blood pH 7.47 (7.35-7.45) Arterial Blood pCO2 at Patient Temp 31 mmHg (35-46) Arterial Blood pO2 at Patient Temp 158 mmHg (65-108) Arterial Blood HCO3 22 mmol/L (21-28) Arterial Blood Base Excess -1 mmol/L (-3-3) Oxyhemoglobin 98.1 % Methemoglobin 0.3 % (0.0-1.9) Carbon Monoxide, Quantitative 0.3 % (0.0-1.9) FiO2 100 Troponin I Quantitative 1.982 ng/mL (0.000-0.055) Glucose (Fingerstick) 124 mg/dL (70-99) Heparin Anti-Xa Act, Unfractionated < 0.10 IU/mL (0.30-0.70) Test 04/24/21 23:40 04/24/21 23:55 04/25/21 05:34 04/25/21 05:48 Glucose (Fingerstick) 61 mg/dL (70-99) 108 mg/dL (70-99) 56 mg/dL (70-99) 106 mg/dL (70-99) Test 04/25/21 07:10 04/25/21 09:00 04/25/21 11:51 04/25/21 13:00 White Blood Count 15.2 x10^3/uL (4.0-11.0) Red Blood Count 3.58 x10^6/uL (4.30-5.70) Hemoglobin 9.6 g/dL (13.0-17.5) Hematocrit 29.5 % (39.0-53.0) Mean Corpuscular Volume 82 fL (79-100) Mean Corpuscular Hemoglobin 27 pg (25-35) Mean Corpuscular Hemoglobin Concent 33 g/dL (31-37) Red Cell Distribution Width 15.5 % (11.5-14.5) Platelet Count 211 x10^3/uL (140-400) Neutrophils (%) (Auto) 83 % (31-73) Lymphocytes (%) (Auto) 11 % (24-48) Monocytes (%) (Auto) 7 % (0-9) Eosinophils (%) (Auto) 0 % (0-3) Basophils (%) (Auto) 0 % (0-3) Neutrophils # (Auto) 12.5 x10^3/uL (1.8-7.7) Lymphocytes # (Auto) 1.6 x10^3/uL (1.0-4.8) Monocytes # (Auto) 1.0 x10^3/uL (0.0-1.1) Eosinophils # (Auto) 0.0 x10^3/uL (0.0-0.7) Basophils # (Auto) 0.1 x10^3/uL (0.0-0.2) Heparin Anti-Xa Act, Unfractionated 0.56 IU/mL (0.30-0.70) 0.66 IU/mL (0.30-0.70) Sodium Level 141 mmol/L (136-145) Potassium Level 3.1 mmol/L (3.5-5.1) Chloride Level 106 mmol/L (98-107) Carbon Dioxide Level 25 mmol/L (21-32) Anion Gap 10 (6-14) Blood Urea Nitrogen 27 mg/dL (8-26) Creatinine 3.2 mg/dL (0.7-1.3) Estimated GFR (Cockcroft-Gault) 23.1 BUN/Creatinine Ratio 8 (6-20) Glucose Level 71 mg/dL (70-99) Calcium Level 8.0 mg/dL (8.5-10.1) Total Bilirubin 0.7 mg/dL (0.2-1.0) Aspartate Amino Transf (AST/SGOT) 35 U/L (15-37) Alanine Aminotransferase (ALT/SGPT) 19 U/L (16-63) Alkaline Phosphatase 41 U/L (46-116) Troponin I Quantitative 2.618 ng/mL (0.000-0.055) Total Protein 5.7 g/dL (6.4-8.2) Albumin 2.2 g/dL (3.4-5.0) Albumin/Globulin Ratio 0.6 (1.0-1.7) O2 Saturation 95 % (92-99) Arterial Blood pH 7.49 (7.35-7.45) Arterial Blood pCO2 at Patient Temp 31 mmHg (35-46) Arterial Blood pO2 at Patient Temp 73 mmHg (65-108) Arterial Blood HCO3 23 mmol/L (21-28) Arterial Blood Base Excess 0 mmol/L (-3-3) FiO2 50% vent Glucose (Fingerstick) 73 mg/dL (70-99) Physical Exam HEENT: Neck Supple W Full Motion Chest: Symmetric LUNGS: Other (MV) Heart: irregularly irregular (AFIB with RVR) Extremities: Other (2+ bilateral LE edema ) Neurology: other (sedated) Assessment Assessment 1. Acute respiratory failure secondary to CHF, COVID + 2. Acute on chronic diastolic CHF; s/p IV diuresis 3. Hypertensive urgency; labile 4. NSTEMI; trop highest 2.6. Echo last week with preserved LV systolic function with moderate LVH. Most probable type II, demand ischemia in setting of above, although underling ischemic cannot be ruled otut 5. ? CAD; details unknown 6. Hyperlipidemia; statin 7. ILDA on CKD; Cr ^ 3.2 8. Diabetes, II 9. Leukocytosis 10. H/o bilateral subclavian stenosis s/p left subclavian sent placement complicated by retroperitoneal hematoma s/p evacuation in 08/2015. 11. New AFIB with RVR; remains in AFIB, rate intermittently elevated Recommendations ASA, statin Discontinue Coreg Start Metoprolol IV Q6 for rate control Continue heparin gtt per CV protocol for another 24 hrs Ongoing lung optimization, treatment of COVID PNA as per pulm Follow renal recs Supportive care Justicifation of Admission Dx: Justifications for Admission: Justification of Admission Dx: Yes Aspiration Pneumonia: Hemodynamic Instability VIDAL RODRIGUEZ MD 04/25/21 1803: CARDIO Progress Notes Assessment Assessment Patient seen and evaluated. I agree with our nurse practitioners assessment and plan. Acute respiratory failure secondary to CHF, COVID +. Intubated. Followed by the pulmonary service. Acute on chronic diastolic CHF; s/p IV diuresis Hypertensive urgency; labile NSTEMI; trop highest 2.6. Echo last week with preserved LV systolic function with moderate LVH. Most probable type II, demand ischemia in setting of above, although underling ischemic cannot be ruled out CAD; details unknown Hyperlipidemia; statin ILDA on CKD; Cr ^ 3.2 Diabetes, II New AFIB with RVR; remains in AFIB, rate intermittently elevated. Beta-roney for rate control. CAMRYN DRAPER APRN Apr 25, 2021 14:21 VIDAL RODRIGUEZ MD Apr 25, 2021 18:03
[2021-04-25] MEDS ORDERED: DIGOXIN IV 500 MCG/2 ML AMPUL. IV ONE (14:45)
--- NOTE | 2021-04-25 15:35 | NUR ---
SS following for discharge planning. SS reviewed pt chart and discussed with pt RN. Pt is from home and currently on the vent at 50%. COVID19 positive. Pt on Fentanyl, Propofol, and Heparin. Pt on IV Cefepime. Pt to start IV Remdesivir and IV Decadron. Pt had [facility], ; fax [phone], at home and caregiver services through [facility]. SS will continue to follow for discharge planning.
[2021-04-25] MEDS: DEXAMETHASONE SOD PHOS 4 MG/ML VIAL IVP SCH (17:10)
[2021-04-25] MEDS: METOPROLOL IV PUSH 5 MG/5 ML VIAL. IVP SCH (17:11)
[2021-04-25] MEDS ORDERED: REMDESIVIR LOAD in IV NORMAL SALINE 250ML TV IV ONE (17:30)
--- NOTE | 2021-04-25 18:06 | PDOC ---
[employer] PROGRESS NOTE Date of Service DOS: DATE: 04/25/21 TIME: 18:03 Chief Complaint Chief Complaint Acute respiratory failure with hypoxia - appears secondary to pulmonary edema vs pneumonia. Will diurese with IV Lasix and cover for H CAP with cefepime x1. Check procalcitonin follow-up blood cultures. Pulmonology consulted for assistance in vent management. NSTEMI - possibly demand ischemia due to hypoxia, will trend troponins, consult cardiology SIRS - likely sepsis from HCAP, treating with cefepime, given clear fluid overload will not give IVF. Trend WBC, f/u blood cultures. Hypertensive urgency - improved with intubation and sedation Hyperlipidemia - on statin CKD - appears currently at baseline Diabetes, II - sliding scale H/o bilateral subclavian stenosis s/p left subclavian sent placement complicated by retroperitoneal hematoma s/p evacuation in 08/2015. Marijuana use - will counselor at law on any smoking with respiratory illness when awake Moderate protein calorie malnutrition - his brother notes the patient has "given up" FEN - NPO PPX - heparin FULL CODE Dispo - inpatient History of Present Illness History of Present Illness Mr Cunha is a 75 yo male w/ PMHx CAD, HTN, Hyperlipidemia, subclavian steel syndrome, subclavian stenosis s/p left subclavian sent placement complicated by retroperitoneal hematoma s/p evacuation in 08/2015), asthma, BART, CKD, DM2 who presented from home with home health care noted that he was short of breath and valverde with O2 saturations less than 89% as low as 84% not improved with nasal c annulated oxygen placed on CPAP and brought to ED for further care. He was just discharged from the hospital a week ago on April 19, 2021 for abdominal pain and was going for further cardiac testing with outpatient stress testing scheduled on May 28, 2021. Had echocardiogram April 17, 2021 with normal-appearing EF with moderate concentric LVH no significant valvular abnormalities. WBC 20, Hb 10.7, platelets 268, NA 140, K3.8, BUN 21, CR 2.9, glucose 162, albumin 3, troponin I 1.372, NT proBNP 33,318. EKG appears sinus tachycardia rate of 105 bpm with multiple PACs small ST depressions in lead II and V5. TWI in V6. Chest radiograph with diffuse interstitial and alveolar opacities and ET tube 5.8 cm above the leilani. Due to worsening respiratory status ED physician elected to intubate patient. Seen postintubation. Blood pressure little low after propofol bolus, but improved. Significant white frothy sputum per ET tube. Admitted to ICU for further care 04/25/2021: On vent FiO2 50, PEEP 5. Febrile, T-max 103.3. Patient was initiated on cooling blankets. Procalcitonin 0.13. Continue coverage for hospital-acquired pneumonia with cefepime. MRSA PCR pending. Critical care time 30 minutes spent reviewing charts, reviewing labs, review of imaging, discussion with RN. Vitals/I&O Vitals/I&O: Vital Signs Date Time Temp Pulse Resp B/P (MAP) Pulse Ox O2 Delivery O2 Flow Rate FiO2 04/25/21 17:11 118 160/75 04/25/21 17:05 102.3 20 98 Ventilator 102.3 I & O 04/24/21 04/24/21 04/25/21 15:00 23:00 07:00 Intake Total 698 ml Output Total 575 ml 850 ml Balance -575 ml -152 ml Physical Exam General: Other (Intubated sedated) Heart: Other (Tachycardic) Lungs: Crackles Abdomen: Soft, Other (obese) Extremities: Other (trace LE edema ) Skin: No rashes, No breakdown, No significant lesion Labs Labs: Laboratory Tests Test 04/24/21 18:30 04/24/21 18:36 04/24/21 23:10 04/24/21 23:40 Troponin I Quantitative 1.982 ng/mL (0.000-0.055) Glucose (Fingerstick) 124 mg/dL (70-99) 61 mg/dL (70-99) Heparin Anti-Xa Act, Unfractionated < 0.10 IU/mL (0.30-0.70) Test 04/24/21 23:55 04/25/21 05:34 04/25/21 05:48 04/25/21 07:10 Glucose (Fingerstick) 108 mg/dL (70-99) 56 mg/dL (70-99) 106 mg/dL (70-99) White Blood Count 15.2 x10^3/uL (4.0-11.0) Red Blood Count 3.58 x10^6/uL (4.30-5.70) Hemoglobin 9.6 g/dL (13.0-17.5) Hematocrit 29.5 % (39.0-53.0) Mean Corpuscular Volume 82 fL (79-100) Mean Corpuscular Hemoglobin 27 pg (25-35) Mean Corpuscular Hemoglobin Concent 33 g/dL (31-37) Red Cell Distribution Width 15.5 % (11.5-14.5) Platelet Count 211 x10^3/uL (140-400) Neutrophils (%) (Auto) 83 % (31-73) Lymphocytes (%) (Auto) 11 % (24-48) Monocytes (%) (Auto) 7 % (0-9) Eosinophils (%) (Auto) 0 % (0-3) Basophils (%) (Auto) 0 % (0-3) Neutrophils # (Auto) 12.5 x10^3/uL (1.8-7.7) Lymphocytes # (Auto) 1.6 x10^3/uL (1.0-4.8) Monocytes # (Auto) 1.0 x10^3/uL (0.0-1.1) Eosinophils # (Auto) 0.0 x10^3/uL (0.0-0.7) Basophils # (Auto) 0.1 x10^3/uL (0.0-0.2) Heparin Anti-Xa Act, Unfractionated 0.56 IU/mL (0.30-0.70) Sodium Level 141 mmol/L (136-145) Potassium Level 3.1 mmol/L (3.5-5.1) Chloride Level 106 mmol/L (98-107) Carbon Dioxide Level 25 mmol/L (21-32) Anion Gap 10 (6-14) Blood Urea Nitrogen 27 mg/dL (8-26) Creatinine 3.2 mg/dL (0.7-1.3) Estimated GFR (Cockcroft-Gault) 23.1 BUN/Creatinine Ratio 8 (6-20) Glucose Level 71 mg/dL (70-99) Calcium Level 8.0 mg/dL (8.5-10.1) Total Bilirubin 0.7 mg/dL (0.2-1.0) Aspartate Amino Transf (AST/SGOT) 35 U/L (15-37) Alanine Aminotransferase (ALT/SGPT) 19 U/L (16-63) Alkaline Phosphatase 41 U/L (46-116) Troponin I Quantitative 2.618 ng/mL (0.000-0.055) Total Protein 5.7 g/dL (6.4-8.2) Albumin 2.2 g/dL (3.4-5.0) Albumin/Globulin Ratio 0.6 (1.0-1.7) Test 04/25/21 09:00 04/25/21 11:51 04/25/21 13:00 04/25/21 17:19 O2 Saturation 95 % (92-99) Arterial Blood pH 7.49 (7.35-7.45) Arterial Blood pCO2 at Patient Temp 31 mmHg (35-46) Arterial Blood pO2 at Patient Temp 73 mmHg (65-108) Arterial Blood HCO3 23 mmol/L (21-28) Arterial Blood Base Excess 0 mmol/L (-3-3) FiO2 50% vent Glucose (Fingerstick) 73 mg/dL (70-99) 103 mg/dL (70-99) Heparin Anti-Xa Act, Unfractionated 0.66 IU/mL (0.30-0.70) Assessment and Plan Assessmemt and Plan Problems Medical Problems: (1) Elevated troponin Status: Acute (2) Pulmonary edema Status: Acute Comment Review of Relevant I have reviewed the following items juanita (where applicable) has been applied. Medications: Current Medications Medications (Trade) Dose Ordered Sig/Jodie Route PRN Reason Start Time Stop Time Status Last Admin Dose Admin Chlorhexidine Gluconate (Peridex) 15 ml BID MM 04/24/21 21:00 04/25/21 11:19 DC 04/24/21 20:49 Montelukast Sodium (Singulair) 10 mg HS PO 04/24/21 21:00 04/24/21 20:49 Atorvastatin Calcium (Lipitor) 80 mg QHS PO 04/24/21 21:00 04/24/21 20:49 Cefepime HCl (Maxipime) 1 gm Q12HR IVP 04/25/21 09:00 04/25/21 09:22 Metoprolol Tartrate (Lopressor Vial) 5 mg 1X ONCE IVP 04/25/21 11:30 04/25/21 11:31 DC 04/25/21 11:27 Info (Anti-Coagulation Monitoring By Pharmacy) 1 each PRN DAILY PRN MC PER PROTOCOL 04/25/21 13:00 04/25/21 13:00 Digoxin (Lanoxin) 500 mcg 1X ONCE IV 04/25/21 14:45 04/25/21 14:46 DC 04/25/21 14:52 Metoprolol Tartrate (Lopressor Vial) 5 mg Q6HRS IVP 04/25/21 18:00 04/25/21 17:11 Dexamethasone Sodium Phosphate (Decadron) 6 mg DAILY IVP 04/25/21 17:00 04/25/21 17:10 Remdesivir 200 mg/ Sodium Chloride 210 ml @ 210 mls/hr 1X ONCE IV 04/25/21 17:30 04/25/21 18:29 04/25/21 17:09 Justifications for Admission General Conditions Altered mental status?: Yes Justification of admission: Patient has tachycardia (> 100 beats per minute) or hypotension (SBP < 90 mm Hg) leading to inadequate systemic perfusion as indicated by severe/persistent altered mental status. Other Justification ILDA SARAH BETH CARRASCO MD Apr 25, 2021 18:06
--- NOTE | 2021-04-25 18:20 | NUR ---
Granddaughter, Graciela De Jesus, called for update. She informed this RN that she is the DPOA and will fax paperwork. Code status was discussed and patient is a full code. Patient's brother, Raphael, is a retired RN and was updated along with patient's other granddaughter, Brendan Simpson.
[2021-04-25] MEDS: ATORVASTATIN CALCIUM 40 MG TABLET. PO SCH (20:39)
[2021-04-25] MEDS: MONTELUKAST SODIUM 10 MG TABLET. PO SCH (20:39)
[2021-04-25 21:35] LABS: MAGNESIUM 2.1 mg/dL (1.8-2.4); PHOSPHORUS 5.4 mg/dL (2.6-4.7); POTASSIUM 3.6 mmol/L (3.5-5.1)
[2021-04-26] VITALS (37 sets, daily range): BP systolic 58–185; BP diastolic 45–98
[2021-04-26] MEDS: INSULIN LISPRO 300 UNITS/3 ML VIAL. SQ SCH ×4 (00:55→17:52)
[2021-04-26] MEDS: METOPROLOL IV PUSH 5 MG/5 ML VIAL. IVP SCH ×4 (00:56→17:52)
[2021-04-26] MEDS: PROPOFOL 100 ML IV PRN ×2 (01:24→05:25)
[2021-04-26 04:54] LABS: ALBUMIN 1.6 g/dL (3.4-5.0); ALBUMIN/GLOBULIN RATIO 0.4 (1.0-1.7); CALCIUM 7.6 mg/dL (8.5-10.1); CREATININE 3.2 mg/dL (0.7-1.3); GFR 23.1; POTASSIUM 3.8 mmol/L (3.5-5.1); TOTAL BILIRUBIN 1.2 mg/dL (0.2-1.0); TOTAL PROTEIN 5.4 g/dL (6.4-8.2)
--- NOTE | 2021-04-26 06:41 | PDOC ---
[employer] PROGRESS NOTE Date of Service DOS: DATE: 04/26/21 TIME: 06:34 Chief Complaint Chief Complaint Acute respiratory failure with hypoxia - appears secondary to pulmonary edema vs pneumonia. Will diurese with IV Lasix and cover for HCAP with cefepime x1. Check procalcitonin follow-up blood cultures. COVID-19 pneumonia Pulmonology consulted for assistance in vent management. NSTEMI - possibly demand ischemia due to hypoxia, will trend troponins, consult cardiology SIRS - likely sepsis from HCAP, treating with cefepime, given clear fluid overload will not give IVF. Trend WBC, f/u blood cultures. Hypertensive urgency - improved with intubation and sedation Hyperlipidemia - on statin CKD - appears currently at baseline Diabetes, II - sliding scale H/o bilateral subclavian stenosis s/p left subclavian sent placement complicated by retroperitoneal hematoma s/p evacuation in 08/2015. Marijuana use - will school guidance counselor on any smoking with respiratory illness when awake Severe protein calorie malnutrition - his brother notes the patient has "given up" FEN - NPO PPX - heparin FULL CODE Dispo - inpatient History of Present Illness History of Present Illness Mr Cunha is a 75 yo male w/ PMHx CAD, HTN, Hyperlipidemia, subclavian steel syndrome, subclavian stenosis s/p left subclavian sent placement complicated by retroperitoneal hematoma s/p evacuation in 08/2015), asthma, BART, CKD, DM2 who presented from home with home health care noted that he was short of breath and valverde with O2 saturations less than 89% as low as 84% not improved with nasal cannulated oxygen placed on CPAP and brought to ED for further care. He was just discharged from the hospital a week ago on April 19, 2021 for abdominal pain and was going for further cardiac testing with outpatient stress testing scheduled on May 28, 2021. Had echocardiogram April 17, 2021 with normal-appearing EF with moderate concentric LVH no significant valvular abnormalities. WBC 20, Hb 10.7, platelets 268, NA 140, K3.8, BUN 21, CR 2.9, glucose 162, albumin 3, troponin I 1.372, NT proBNP 33,318. EKG appears sinus tachycardia rate of 105 bpm with multiple PACs small ST depressions in lead II and V5. TWI in V6. Chest radiograph with diffuse interstitial and alveolar opacities and ET tube 5.8 cm above the leilani. Due to worsening respiratory status ED physician elected to intubate patient. Seen postintubation. Blood pressure little low after propofol bolus, but i mproved. Significant white frothy sputum per ET tube. Admitted to ICU for further care 04/26/2021: COVID-19 positive. Febrile overnight that was managed with cooling blankets. On vent with FiO2 50%, PEEP 5. Per cardiology, elevated troponins likely secondary to demand ischemia; continue heparin drip per cardiology. Maintain fluid balance and avoid nephrotoxins. Continue treatment with remdesivir, steroids, and prophylactic antibiotics. 30 minutes critical care time spent reviewing charts, reviewing labs, reviewing imaging, and discussion with RN. 04/25/2021: On vent FiO2 50, PEEP 5. Febrile, T-max 103.3. Patient was initiated on cooling blankets. Procalcitonin 0.13. Continue coverage for hospital-acquired pneumonia with cefepime. MRSA PCR pending. Critical care time 30 minutes spent reviewing charts, reviewing labs, review of imaging, discussion with RN. Vitals/I&O Vitals/I&O: Vital Signs Date Time Temp Pulse Resp B/P (MAP) Pulse Ox O2 Delivery O2 Flow Rate FiO2 04/26/21 06:00 94 20 144/78 (100) 99 Ventilator 04/26/21 04:00 94.2 94.2 I & O 04/25/21 04/25/21 04/26/21 15:00 23:00 07:00 Intake Total 1451 ml 1000 ml Output Total 1050 ml 650 ml 285 ml Balance -1050 ml 801 ml 715 ml Physical Exam General: Other (Intubated sedated) Heart: Other (Tachycardic) Lungs: Crackles Abdomen: Soft, Other (obese) Extremities: Other (trace LE edema ) Skin: No rashes, No breakdown, No significant lesion Labs Labs: Laboratory Tests Test 04/25/21 07:10 04/25/21 09:00 04/25/21 11:51 04/25/21 13:00 White Blood Count 15.2 x10^3/uL (4.0-11.0) Red Blood Count 3.58 x10^6/uL (4.30-5.70) Hemoglobin 9.6 g/dL (13.0-17.5) Hematocrit 29.5 % (39.0-53.0) Mean Corpuscular Volume 82 fL (79-100) Mean Corpuscular Hemoglobin 27 pg (25-35) Mean Corpuscular Hemoglobin Concent 33 g/dL (31-37) Red Cell Distribution Width 15.5 % (11.5-14.5) Platelet Count 211 x10^3/uL (140-400) Neutrophils (%) (Auto) 83 % (31-73) Lymphocytes (%) (Auto) 11 % (24-48) Monocytes (%) (Auto) 7 % (0-9) Eosinophils (%) (Auto) 0 % (0-3) Basophils (%) (Auto) 0 % (0-3) Neutrophils # (Auto) 12.5 x10^3/uL (1.8-7.7) Lymphocytes # (Auto) 1.6 x10^3/uL (1.0-4.8) Monocytes # (Auto) 1.0 x10^3/uL (0.0-1.1) Eosinophils # (Auto) 0.0 x10^3/uL (0.0-0.7) Basophils # (Auto) 0.1 x10^3/uL (0.0-0.2) Heparin Anti-Xa Act, Unfractionated 0.56 IU/mL (0.30-0.70) 0.66 IU/mL (0.30-0.70) Sodium Level 141 mmol/L (136-145) Potassium Level 3.1 mmol/L (3.5-5.1) Chloride Level 106 mmol/L (98-107) Carbon Dioxide Level 25 mmol/L (21-32) Anion Gap 10 (6-14) Blood Urea Nitrogen 27 mg/dL (8-26) Creatinine 3.2 mg/dL (0.7-1.3) Estimated GFR (Cockcroft-Gault) 23.1 BUN/Creatinine Ratio 8 (6-20) Glucose Level 71 mg/dL (70-99) Calcium Level 8.0 mg/dL (8.5-10.1) Total Bilirubin 0.7 mg/dL (0.2-1.0) Aspartate Amino Transf (AST/SGOT) 35 U/L (15-37) Alanine Aminotransferase (ALT/SGPT) 19 U/L (16-63) Alkaline Phosphatase 41 U/L (46-116) Troponin I Quantitative 2.618 ng/mL (0.000-0.055) Total Protein 5.7 g/dL (6.4-8.2) Albumin 2.2 g/dL (3.4-5.0) Albumin/Globulin Ratio 0.6 (1.0-1.7) O2 Saturation 95 % (92-99) Arterial Blood pH 7.49 (7.35-7.45) Arterial Blood pCO2 at Patient Temp 31 mmHg (35-46) Arterial Blood pO2 at Patient Temp 73 mmHg (65-108) Arterial Blood HCO3 23 mmol/L (21-28) Arterial Blood Base Excess 0 mmol/L (-3-3) FiO2 50% vent Glucose (Fingerstick) 73 mg/dL (70-99) Test 04/25/21 17:19 04/25/21 21:15 04/26/21 00:43 04/26/21 04:30 Glucose (Fingerstick) 103 mg/dL (70-99) 236 mg/dL (70-99) Heparin Anti-Xa Act, Unfractionated 0.64 IU/mL (0.30-0.70) 0.53 IU/mL (0.30-0.70) Potassium Level 3.6 mmol/L (3.5-5.1) 3.8 mmol/L (3.5-5.1) Phosphorus Level 5.4 mg/dL (2.6-4.7) Magnesium Level 2.1 mg/dL (1.8-2.4) Sodium Level 135 mmol/L (136-145) Chloride Level 103 mmol/L (98-107) Carbon Dioxide Level 16 mmol/L (21-32) Anion Gap 16 (6-14) Blood Urea Nitrogen 36 mg/dL (8-26) Creatinine 3.2 mg/dL (0.7-1.3) Estimated GFR (Cockcroft-Gault) 23.1 BUN/Creatinine Ratio 11 (6-20) Glucose Level 223 mg/dL (70-99) Calcium Level 7.6 mg/dL (8.5-10.1) Total Bilirubin 1.2 mg/dL (0.2-1.0) Aspartate Amino Transf (AST/SGOT) 57 U/L (15-37) Alanine Aminotransferase (ALT/SGPT) 22 U/L (16-63) Alkaline Phosphatase 38 U/L (46-116) Total Protein 5.4 g/dL (6.4-8.2) Albumin 1.6 g/dL (3.4-5.0) Albumin/Globulin Ratio 0.4 (1.0-1.7) Assessment and Plan Assessmemt and Plan Problems Medical Problems: (1) Elevated troponin Status: Acute (2) Pulmonary edema Status: Acute Comment Review of Relevant I have reviewed the following items juanita (where applicable) has been applied. Medications: Current Medications Medications (Trade) Dose Ordered Sig/Jodie Route PRN Reason Start Time Stop Time Status Last Admin Dose Admin Cefepime HCl (Maxipime) 1 gm Q12HR IVP 04/25/21 09:00 04/25/21 20:39 Metoprolol Tartrate (Lopressor Vial) 5 mg 1X ONCE IVP 04/25/21 11:30 04/25/21 11:31 DC 04/25/21 11:27 Info (Anti-Coagulation Monitoring By Pharmacy) 1 each PRN DAILY PRN MC PER PROTOCOL 04/25/21 13:00 04/25/21 13:00 Digoxin (Lanoxin) 500 mcg 1X ONCE IV 04/25/21 14:45 04/25/21 14:46 DC 04/25/21 14:52 Metoprolol Tartrate (Lopressor Vial) 5 mg Q6HRS IVP 04/25/21 18:00 04/26/21 00:56 Dexamethasone Sodium Phosphate (Decadron) 6 mg DAILY IVP 04/25/21 17:00 04/25/21 17:10 Remdesivir 200 mg/ Sodium Chloride 210 ml @ 210 mls/hr 1X ONCE IV 04/25/21 17:30 04/25/21 18:29 DC 04/25/21 17:09 Justifications for Admission General Conditions Altered mental status?: Yes Justification of admission: Patient has tachycardia (> 100 beats per minute) or hypotension (SBP < 90 mm Hg) leading to inadequate systemic perfusion as indicated by severe/persistent altered mental status. Other Justification SARAH BETH ARREOLA MD Apr 26, 2021 06:41
[2021-04-26] MEDS: MIDAZOLAM 100mg/100ml NS BAG 100 ML IV PRN ×2 (07:09→21:34)
--- NOTE | 2021-04-26 07:30 | NUR ---
Increasing patient's sedation r/t patient becoming anxious and increase RR.
--- NOTE | 2021-04-26 07:45 | NUR ---
Increasing patient's sedation r/t to RASS 1-. Patient is anxious and not calming down.
[2021-04-26] MEDS: ASPIRIN ENTERIC COATED 81 MG TABLET.DR. PO SCH (08:00)
[2021-04-26 08:41] LABS: BASE EXCESS ABG -4 mmol/L (-3-3); CORRECTED PCO2 ABG 34 mmHg; CORRECTED PH ABG 7.39; CORRECTED PO2 ABG 75 mmHg; HCO3 ABG 21 mmol/L (21-28); PCO2 ABG 37 mmHg (35-46); PO2 ABG 84 mmHg (65-108); SAT O2 ABG 95 % (92-99)
[2021-04-26 08:51] LABS: FIO2 ABG 50
[2021-04-26] MEDS: ANTI-COAG MONITOR BY PHARMACY. MC PRN (08:51)
--- NOTE | 2021-04-26 09:08 | PDOC ---
DATE OF SERVICE DATE: 04/26/21 TIME: 09:02 SUBJECTIVE ROS Remains intubated OBJECTIVE Vital Signs Vital Signs Date Time Temp Pulse Resp B/P (MAP) Pulse Ox O2 Delivery O2 Flow Rate FiO2 04/26/21 08:27 98 Ventilator 04/26/21 08:18 95.5 86 20 97/56 (70) 95.5 I & 0 Intake and Output 04/26/21 07:00 Intake Total 2451 ml Output Total 1985 ml Balance 466 ml Intake IV Total 1405 ml Tube Feeding 846 ml Other 200 ml Output Urine Total 1385 ml Gastric Drainage Total 600 ml # Bowel Movements 1 PHYSICAL EXAM Physical Exam General - Intubated, MV HEEN intubated Neck supple Lungs CTA, Non labored CV RRR Abd Soft, NT Ext No LE edema Neives + Neuro Soft, BS + Psych Unable to assess DIAGNOSIS/ASSESSMENT Assessment & Plan ILDA on CKD - ATN 2/2 sepsis/ Hypotension, Non Oliguric ,stable .Maintain fluid balance , E-Lytes stable, Currently no indication for emergent dialysis . Supportive care , avoid nephrotoxins, Lasix prn - dw Nursing CKD stage 4 - Baseline Cr 2.4 -2.7 ,Mild echogenic appearing right kidney probably medical renal disease. Recent CT Atrophic appearance of the right kidney COVID-19 positive - Abnormal CT chest with bilateral diffuse interstitial infiltrates without any significant pleural effusion. Acute respiratory failure with Hypoxia Currently Intubated ; stable HypoKalemia - Normal K, replace as indicated Cholelithiasis Anemia Severe HypoAlbuminemia DM II Hypotension - Low BP, at presentation , resolved; Low again this morning, not requiring pressor support HTN- On antihypertensives @ home NSTEMI - possibly demand ischemia SIRS - likely sepsis from HCAP H/o bilateral subclavian stenosis s/p left subclavian sent placement complicated by retroperitoneal hematoma s/p evacuation in 08/2015. Hx of Marijuana use COMMENT/RELEVANT DATA Meds Current Medications Medications (Trade) Dose Ordered Sig/Jodie Start Time Stop Time Status Last Admin Dose Admin Acetaminophen (Tylenol) 650 mg PRN Q6HRS PRN 04/24/21 14:00 Cancel Aspirin (Ecotrin) 81 mg [id number] 04/25/21 08:00 Atorvastatin Calcium (Lipitor) 80 mg QHS 04/24/21 21:00 04/25/21 20:39 80 MG Bisacodyl (Dulcolax Supp) 10 mg PRN DAILY PRN 04/24/21 14:00 Carvedilol (Coreg) 3.125 mg BIDWMEALS 04/24/21 17:00 04/25/21 15:42 DC 04/25/21 09:23 3.125 MG Cefepime HCl (Maxipime) 1 gm Q12HR 04/25/21 09:00 04/25/21 20:39 1 GM Chlorhexidine Gluconate (Peridex) 15 ml BID 04/24/21 21:00 04/25/21 11:19 DC 04/24/21 20:49 15 ML Dexamethasone Sodium Phosphate (Decadron) 6 mg DAILY 04/25/21 17:00 04/25/21 17:10 6 MG Dextrose (Dextrose 50%-Water Syringe) 12.5 gm PRN Q15MIN PRN 04/24/21 16:30 04/24/21 23:43 12.5 GM Digoxin (Lanoxin) 500 mcg 1X ONCE 04/25/21 14:45 04/25/21 14:46 DC 04/25/21 14:52 500 MCG Etomidate (Amidate) 20 mg STK-MED ONCE 04/24/21 13:38 04/24/21 13:38 DC Fentanyl Citrate 30 ml @ 0 mls/hr CONT PRN 04/24/21 14:00 04/25/21 22:33 2.5 MLS/HR Fentanyl Citrate (Fentanyl 2ml Vial) 25 mcg PRN Q1HR PRN 04/24/21 14:00 04/24/21 16:39 25 MCG Furosemide (Lasix) 40 mg 1X ONCE 04/25/21 11:30 04/25/21 11:31 DC Heparin Sodium (Porcine) (Heparin Sodium) 3,200 unit PRN Q6HRS PRN 04/24/21 16:45 04/24/21 23:32 3,200 UNIT Heparin Sodium/ Dextrose 250 ml @ 0 mls/hr CONT PRN 04/24/21 16:45 04/25/21 12:59 12.3 MLS/HR Hydralazine HCl (Apresoline Inj) 10 mg PRN Q4HRS PRN 04/25/21 14:45 Info (Anti-Coagulation Monitoring By Pharmacy) 1 each PRN DAILY PRN 04/25/21 13:00 04/26/21 08:51 1 EACH Insulin Human Lispro (HumaLOG) 0-9 UNITS Q6HRS 04/24/21 18:00 04/26/21 06:05 5 UNITS Metoprolol Tartrate (Lopressor Vial) 5 mg Q6HRS 04/25/21 18:00 04/26/21 00:56 5 MG Midazolam HCl 100 ml @ 0 mls/hr CONT PRN 04/26/21 07:00 04/26/21 07:09 1 MLS/HR Montelukast Sodium (Singulair) 10 mg HS 04/24/21 21:00 04/25/21 20:39 10 MG Ondansetron HCl (Zofran) 4 mg PRN Q6HRS PRN 04/24/21 14:00 Pantoprazole Sodium (PROTONIX VIAL for IV PUSH) 40 mg DAILYAC 04/26/21 09:30 Propofol 100 ml @ 0 mls/hr CONT PRN 04/24/21 15:30 04/26/21 05:25 15.2 MLS/HR Remdesivir 100 mg/ Sodium Chloride 230 ml @ 460 mls/hr Q24H 04/26/21 17:30 04/29/21 17:59 Remdesivir 200 mg/ Sodium Chloride 210 ml @ 210 mls/hr 1X ONCE 04/25/21 17:30 04/25/21 18:29 DC 04/25/21 17:09 210 MLS/HR Sodium Chloride (Normal Saline Flush) 3 ml QSHIFT PRN 04/24/21 14:00 Succinylcholine Chloride (Anectine) 200 mg STK-MED ONCE 04/24/21 13:38 04/24/21 13:38 DC Lab Laboratory Tests Test 04/25/21 11:51 04/25/21 13:00 04/25/21 17:19 04/25/21 21:15 Glucose (Fingerstick) 73 mg/dL (70-99) 103 mg/dL (70-99) Heparin Anti-Xa Act, Unfractionated 0.66 IU/mL (0.30-0.70) 0.64 IU/mL (0.30-0.70) Potassium Level 3.6 mmol/L (3.5-5.1) Phosphorus Level 5.4 mg/dL (2.6-4.7) Magnesium Level 2.1 mg/dL (1.8-2.4) Test 04/26/21 00:43 04/26/21 04:30 04/26/21 08:36 Glucose (Fingerstick) 236 mg/dL (70-99) Heparin Anti-Xa Act, Unfractionated 0.53 IU/mL (0.30-0.70) Sodium Level 135 mmol/L (136-145) Potassium Level 3.8 mmol/L (3.5-5.1) Chloride Level 103 mmol/L (98-107) Carbon Dioxide Level 16 mmol/L (21-32) Anion Gap 16 (6-14) Blood Urea Nitrogen 36 mg/dL (8-26) Creatinine 3.2 mg/dL (0.7-1.3) Estimated GFR (Cockcroft-Gault) 23.1 BUN/Creatinine Ratio 11 (6-20) Glucose Level 223 mg/dL (70-99) Calcium Level 7.6 mg/dL (8.5-10.1) Total Bilirubin 1.2 mg/dL (0.2-1.0) Aspartate Amino Transf (AST/SGOT) 57 U/L (15-37) Alanine Aminotransferase (ALT/SGPT) 22 U/L (16-63) Alkaline Phosphatase 38 U/L (46-116) Total Protein 5.4 g/dL (6.4-8.2) Albumin 1.6 g/dL (3.4-5.0) Albumin/Globulin Ratio 0.4 (1.0-1.7) O2 Saturation 95 % (92-99) Arterial Blood pH 7.37 (7.35-7.45) Arterial Blood pH (Temp corrected) 7.39 Arterial Blood pCO2 at Patient Temp 37 mmHg (35-46) Arterial Blood pCO2 (Temp correct) 34 mmHg Arterial Blood pO2 at Patient Temp 84 mmHg (65-108) Arterial Blood pO2 (Temp corrected) 75 mmHg Arterial Blood HCO3 21 mmol/L (21-28) Arterial Blood Base Excess -4 mmol/L (-3-3) FiO2 50 Results All relevant outside records, renal labs, imaging studies, telemetry/EKG's were reviewed. Justicifation of Admission Dx: Justifications for Admission: Justification of Admission Dx: Yes Aspiration Pneumonia: Hemodynamic Instability JASMEET LAM MD Apr 26, 2021 09:08
[2021-04-26] MEDS: DEXAMETHASONE SOD PHOS 4 MG/ML VIAL IVP SCH (10:47)
[2021-04-26] MEDS: PANTOPRAZOLE IV PUSH 40 MG VIAL. IVP SCH (10:47)
[2021-04-26] MEDS: CEFEPIME HCL IV Push 1 GM VIAL. IVP SCH ×2 (10:47→21:00)
--- NOTE | 2021-04-26 10:49 | PDOC ---
PULMONARY PROGRESS NOTES DATE: 04/26/21 TIME: 10:47 Subjective Patient is resting on mechanical ventilation assist control mode 50% and a PEEP of 5 febrile overnight COVID-19 positive Sedated with propofol and fentanyl, remains on heparin drip Vitals Vital Signs Date Time Temp Pulse Resp B/P (MAP) Pulse Ox O2 Delivery O2 Flow Rate FiO2 04/26/21 10:01 20 98 Ventilator 04/26/21 10:00 97.9 104 110/62 (78) 97.9 Comments Visual exam done due to COVID-19. Intubated and sedated No paradoxical breathing. Labs Laboratory Tests Test 04/24/21 12:15 04/24/21 13:00 04/24/21 16:35 04/24/21 18:30 White Blood Count 20.0 x10^3/uL (4.0-11.0) Red Blood Count 3.98 x10^6/uL (4.30-5.70) Hemoglobin 10.7 g/dL (13.0-17.5) Hematocrit 33.1 % (39.0-53.0) Mean Corpuscular Volume 83 fL (79-100) Mean Corpuscular Hemoglobin 27 pg (25-35) Mean Corpuscular Hemoglobin Concent 32 g/dL (31-37) Red Cell Distribution Width 15.6 % (11.5-14.5) Platelet Count 268 x10^3/uL (140-400) Neutrophils (%) (Auto) 74 % (31-73) Lymphocytes (%) (Auto) 15 % (24-48) Monocytes (%) (Auto) 10 % (0-9) Eosinophils (%) (Auto) 0 % (0-3) Basophils (%) (Auto) 1 % (0-3) Neutrophils # (Auto) 14.8 x10^3/uL (1.8-7.7) Lymphocytes # (Auto) 3.1 x10^3/uL (1.0-4.8) Monocytes # (Auto) 2.0 x10^3/uL (0.0-1.1) Eosinophils # (Auto) 0.0 x10^3/uL (0.0-0.7) Basophils # (Auto) 0.1 x10^3/uL (0.0-0.2) Segmented Neutrophils % 73 % (35-66) Band Neutrophils % 2 % (0-9) Lymphocytes % 19 % (24-48) Monocytes % 5 % (0-10) Basophils % 1 % (0-3) Platelet Estimate Adequate (ADEQUATE) Sodium Level 140 mmol/L (136-145) Potassium Level 3.8 mmol/L (3.5-5.1) Chloride Level 104 mmol/L (98-107) Carbon Dioxide Level 26 mmol/L (21-32) Anion Gap 10 (6-14) Blood Urea Nitrogen 21 mg/dL (8-26) Creatinine 2.9 mg/dL (0.7-1.3) Estimated GFR (Cockcroft-Gault) 25.9 BUN/Creatinine Ratio 7 (6-20) Glucose Level 162 mg/dL (70-99) Calcium Level 9.0 mg/dL (8.5-10.1) Magnesium Level 1.9 mg/dL (1.8-2.4) Total Bilirubin 0.8 mg/dL (0.2-1.0) Aspartate Amino Transf (AST/SGOT) 22 U/L (15-37) Alanine Aminotransferase (ALT/SGPT) 22 U/L (16-63) Alkaline Phosphatase 48 U/L (46-116) Troponin I Quantitative 1.372 ng/mL (0.000-0.055) 1.982 ng/mL (0.000-0.055) XA-Pvk-P-Type Natriuretic Peptide 49862 pg/mL (0-124) Total Protein 6.9 g/dL (6.4-8.2) Albumin 3.0 g/dL (3.4-5.0) Albumin/Globulin Ratio 0.8 (1.0-1.7) Procalcitonin 0.13 ng/mL (0.00-0.10) SARS-CoV-2 RNA (PIEDAD) Positive (Negative) O2 Saturation 99 % (92-99) Arterial Blood pH 7.47 (7.35-7.45) Arterial Blood pCO2 at Patient Temp 31 mmHg (35-46) Arterial Blood pO2 at Patient Temp 158 mmHg (65-108) Arterial Blood HCO3 22 mmol/L (21-28) Arterial Blood Base Excess -1 mmol/L (-3-3) Oxyhemoglobin 98.1 % Methemoglobin 0.3 % (0.0-1.9) Carbon Monoxide, Quantitative 0.3 % (0.0-1.9) FiO2 100 Test 04/24/21 18:36 04/24/21 23:10 04/24/21 23:40 04/24/21 23:55 Glucose (Fingerstick) 124 mg/dL (70-99) 61 mg/dL (70-99) 108 mg/dL (70-99) Heparin Anti-Xa Act, Unfractionated < 0.10 IU/mL (0.30-0.70) Test 04/25/21 05:34 04/25/21 05:48 04/25/21 07:10 04/25/21 09:00 Glucose (Fingerstick) 56 mg/dL (70-99) 106 mg/dL (70-99) White Blood Count 15.2 x10^3/uL (4.0-11.0) Red Blood Count 3.58 x10^6/uL (4.30-5.70) Hemoglobin 9.6 g/dL (13.0-17.5) Hematocrit 29.5 % (39.0-53.0) Mean Corpuscular Volume 82 fL (79-100) Mean Corpuscular Hemoglobin 27 pg (25-35) Mean Corpuscular Hemoglobin Concent 33 g/dL (31-37) Red Cell Distribution Width 15.5 % (11.5-14.5) Platelet Count 211 x10^3/uL (140-400) Neutrophils (%) (Auto) 83 % (31-73) Lymphocytes (%) (Auto) 11 % (24-48) Monocytes (%) (Auto) 7 % (0-9) Eosinophils (%) (Auto) 0 % (0-3) Basophils (%) (Auto) 0 % (0-3) Neutrophils # (Auto) 12.5 x10^3/uL (1.8-7.7) Lymphocytes # (Auto) 1.6 x10^3/uL (1.0-4.8) Monocytes # (Auto) 1.0 x10^3/uL (0.0-1.1) Eosinophils # (Auto) 0.0 x10^3/uL (0.0-0.7) Basophils # (Auto) 0.1 x10^3/uL (0.0-0.2) Heparin Anti-Xa Act, Unfractionated 0.56 IU/mL (0.30-0.70) Sodium Level 141 mmol/L (136-145) Potassium Level 3.1 mmol/L (3.5-5.1) Chloride Level 106 mmol/L (98-107) Carbon Dioxide Level 25 mmol/L (21-32) Anion Gap 10 (6-14) Blood Urea Nitrogen 27 mg/dL (8-26) Creatinine 3.2 mg/dL (0.7-1.3) Estimated GFR (Cockcroft-Gault) 23.1 BUN/Creatinine Ratio 8 (6-20) Glucose Level 71 mg/dL (70-99) Calcium Level 8.0 mg/dL (8.5-10.1) Total Bilirubin 0.7 mg/dL (0.2-1.0) Aspartate Amino Transf (AST/SGOT) 35 U/L (15-37) Alanine Aminotransferase (ALT/SGPT) 19 U/L (16-63) Alkaline Phosphatase 41 U/L (46-116) Troponin I Quantitative 2.618 ng/mL (0.000-0.055) Total Protein 5.7 g/dL (6.4-8.2) Albumin 2.2 g/dL (3.4-5.0) Albumin/Globulin Ratio 0.6 (1.0-1.7) O2 Saturation 95 % (92-99) Arterial Blood pH 7.49 (7.35-7.45) Arterial Blood pCO2 at Patient Temp 31 mmHg (35-46) Arterial Blood pO2 at Patient Temp 73 mmHg (65-108) Arterial Blood HCO3 23 mmol/L (21-28) Arterial Blood Base Excess 0 mmol/L (-3-3) FiO2 50% vent Test 04/25/21 11:51 04/25/21 13:00 04/25/21 17:19 04/25/21 21:15 Glucose (Fingerstick) 73 mg/dL (70-99) 103 mg/dL (70-99) Heparin Anti-Xa Act, Unfractionated 0.66 IU/mL (0.30-0.70) 0.64 IU/mL (0.30-0.70) Potassium Level 3.6 mmol/L (3.5-5.1) Phosphorus Level 5.4 mg/dL (2.6-4.7) Magnesium Level 2.1 mg/dL (1.8-2.4) Test 04/26/21 00:43 04/26/21 04:30 04/26/21 08:36 Glucose (Fingerstick) 236 mg/dL (70-99) Heparin Anti-Xa Act, Unfractionated 0.53 IU/mL (0.30-0.70) Sodium Level 135 mmol/L (136-145) Potassium Level 3.8 mmol/L (3.5-5.1) Chloride Level 103 mmol/L (98-107) Carbon Dioxide Level 16 mmol/L (21-32) Anion Gap 16 (6-14) Blood Urea Nitrogen 36 mg/dL (8-26) Creatinine 3.2 mg/dL (0.7-1.3) Estimated GFR (Cockcroft-Gault) 23.1 BUN/Creatinine Ratio 11 (6-20) Glucose Level 223 mg/dL (70-99) Calcium Level 7.6 mg/dL (8.5-10.1) Total Bilirubin 1.2 mg/dL (0.2-1.0) Aspartate Amino Transf (AST/SGOT) 57 U/L (15-37) Alanine Aminotransferase (ALT/SGPT) 22 U/L (16-63) Alkaline Phosphatase 38 U/L (46-116) Total Protein 5.4 g/dL (6.4-8.2) Albumin 1.6 g/dL (3.4-5.0) Albumin/Globulin Ratio 0.4 (1.0-1.7) O2 Saturation 95 % (92-99) Arterial Blood pH 7.37 (7.35-7.45) Arterial Blood pH (Temp corrected) 7.39 Arterial Blood pCO2 at Patient Temp 37 mmHg (35-46) Arterial Blood pCO2 (Temp correct) 34 mmHg Arterial Blood pO2 at Patient Temp 84 mmHg (65-108) Arterial Blood pO2 (Temp corrected) 75 mmHg Arterial Blood HCO3 21 mmol/L (21-28) Arterial Blood Base Excess -4 mmol/L (-3-3) FiO2 50 Laboratory Tests Test 04/25/21 11:51 04/25/21 13:00 04/25/21 17:19 04/25/21 21:15 Glucose (Fingerstick) 73 mg/dL (70-99) 103 mg/dL (70-99) Heparin Anti-Xa Act, Unfractionated 0.66 IU/mL (0.30-0.70) 0.64 IU/mL (0.30-0.70) Potassium Level 3.6 mmol/L (3.5-5.1) Phosphorus Level 5.4 mg/dL (2.6-4.7) Magnesium Level 2.1 mg/dL (1.8-2.4) Test 04/26/21 00:43 04/26/21 04:30 04/26/21 08:36 Glucose (Fingerstick) 236 mg/dL (70-99) Heparin Anti-Xa Act, Unfractionated 0.53 IU/mL (0.30-0.70) Sodium Level 135 mmol/L (136-145) Potassium Level 3.8 mmol/L (3.5-5.1) Chloride Level 103 mmol/L (98-107) Carbon Dioxide Level 16 mmol/L (21-32) Anion Gap 16 (6-14) Blood Urea Nitrogen 36 mg/dL (8-26) Creatinine 3.2 mg/dL (0.7-1.3) Estimated GFR (Cockcroft-Gault) 23.1 BUN/Creatinine Ratio 11 (6-20) Glucose Level 223 mg/dL (70-99) Calcium Level 7.6 mg/dL (8.5-10.1) Total Bilirubin 1.2 mg/dL (0.2-1.0) Aspartate Amino Transf (AST/SGOT) 57 U/L (15-37) Alanine Aminotransferase (ALT/SGPT) 22 U/L (16-63) Alkaline Phosphatase 38 U/L (46-116) Total Protein 5.4 g/dL (6.4-8.2) Albumin 1.6 g/dL (3.4-5.0) Albumin/Globulin Ratio 0.4 (1.0-1.7) O2 Saturation 95 % (92-99) Arterial Blood pH 7.37 (7.35-7.45) Arterial Blood pH (Temp corrected) 7.39 Arterial Blood pCO2 at Patient Temp 37 mmHg (35-46) Arterial Blood pCO2 (Temp correct) 34 mmHg Arterial Blood pO2 at Patient Temp 84 mmHg (65-108) Arterial Blood pO2 (Temp corrected) 75 mmHg Arterial Blood HCO3 21 mmol/L (21-28) Arterial Blood Base Excess -4 mmol/L (-3-3) FiO2 50 Medications Active Scripts Medications Dose Route/Sig Max Daily Dose Days Date Category Glyburide 2.5 Mg Tablet 1 Tab PO DAILY 04/19/21 Rx Polyethylene Glycol 3350 17 Gm Powd.pack 17 Gm PO DAILY 04/19/21 Rx Dok (Docusate Sodium) 100 Mg Capsule 100 Mg PO PRN DAILY PRN 04/19/21 Rx Bisacodyl 5 Mg Tablet.dr 5 Mg PO PRN DAILY PRN 04/19/21 Rx Acetaminophen 325 Mg Tablet 650 Mg PO PRN Q4HRS PRN 04/19/21 Rx Aspirin Ec (Aspirin) 81 Mg Tablet.dr 81 Mg PO DAILYWBKFT 04/19/21 Rx Hydralazine Hcl 25 Mg Tablet 25 Mg PO QID 04/19/21 Rx Fenofibrate 54 Mg Tablet 1 Tab PO DAILY 04/17/21 Reported Potassium Chloride (Potassium Chloride) 20 Meq Tablet.er 20 Meq PO DAILY 04/17/21 Reported Coreg (Carvedilol) 12.5 Mg Tablet 37.5 Mg PO BIDWMEALS 04/17/21 Reported Rosuvastatin Calcium 40 Mg Tablet 40 Mg PO QHS 04/17/21 Reported Gabapentin (Gabapentin) 100 Mg Capsule 200 Mg PO BID 04/17/21 Reported Montelukast Sodium Tablet (Montelukast Sodium) 10 Mg Tablet 10 Mg PO HS 04/17/21 Reported Protonix (Pantoprazole Sodium) 20 Mg Tablet. 2 Tab PO DAILY 04/17/21 Reported Amlodipine Besylate 5 Mg Tablet 5 Mg PO DAILY 04/17/21 Reported Furosemide 40 Mg Tablet 1 Tab PO DAILY 04/17/21 Reported Proair Hfa Inhaler (Albuterol Sulfate) 8.5 Gm Hfa.aer.ad 2 Puff IH PRN Q4-6HRS PRN 04/16/21 Reported Advair 100-50 Diskus (Fluticasone/Salmeterol) 1 Each Disk.w.dev 1 Puff IH BID 04/16/21 Reported Comments CXR 04/25/21 Improved bilateral patchy infiltrates and cardiomegaly Impression . IMPRESSION: 1. Acute hypoxic respiratory failure secondary to bilateral diffuse interstitial infiltrates. --COVID-[address] chest with bilateral diffuse interstitial infiltrates without any significant pleural effusion. Consistent with viral pneumonia. 3. History of recent hospitalization for abdominal pain. He was supposed to have cardiac testing and outpatient stress test. Now, he is hospitalized. Echo with normal ejection fraction and moderate left ventricular hypertrophy. 4. Abnormal troponin, likely cgr-NP-ecudjie elevation myocardial infarction. 5. History of tobacco use, details of length not available. 6. Chronic kidney disease. Plan . Updated 04/26/2021 Continue current vent support assist-control mode 26/500/50%/5 Once down to 40% FiO2, will try weaning sedation and assess mental status. ABG/chest x-ray reviewed, Continue empiric antibiotics with cefepime Continue steroids Continue remdesivir Follow cardiology recommendations continue heparin drip Follow nephrology recs COVID-19 positive Initiated on tube feeding DVT/GI prophylaxis Discussed with RN and RT Critical care time 30 minutes Updated 04/25/2021 Continue current vent support assist-control mode 26/500/50%/5 ABG/chest x-ray reviewed, reduce respiratory rate to 20 Continue empiric antibiotics with cefepime Continue steroids Continue remdesivir Follow cardiology recommendations continue heparin drip Follow nephrology recs COVID-19 positive Consult dietitian to initiate tube feeding DVT/GI prophylaxis Discussed with RN and RT Critical care time 35 minutes RECOMMENDATIONS: 1. Continue present assist control mode and follow ABGs and make necessary adjustments. 2. The patient is status post diuresis. We will follow chest x-ray. 3. Monitor renal function while on diuresis. 4. Continue empiric antibiotic. 5. Rule out COVID viral pneumonia. 6. Continue heparin per protocol for non-STEMI. 7. Continue sedation. 8. Follow all cultures. 9. Discussed with RN, chart reviewed, imaging studies reviewed. Total critical care time 35 minutes. We will follow along with you. JONES FISHMAN MD Apr 26, 2021 10:49
[2021-04-26 11:16] LABS: BASO % 0 % (0-3); EOS % 0 % (0-3); HEMATOCRIT 28.8 % (39.0-53.0); HEMOGLOBIN 9.3 g/dL (13.0-17.5); LYMPH # 1.2 x10^3/uL (1.0-4.8); LYMPH % 10 % (24-48); MEAN CORPUSCULAR HEMOGLOBIN 27 pg (25-35); MEAN CORPUSCULAR HGB CONC 32 g/dL (31-37); MEAN CORPUSCULAR VOLUME 82 fL (79-100); MONO # 0.9 x10^3/uL (0.0-1.1); MONO % 8 % (0-9); NEUT # 9.5 x10^3/uL (1.8-7.7); NEUT % 82 % (31-73); PLATELET COUNT 207 x10^3/uL (140-400); RED BLOOD COUNT 3.51 x10^6/uL (4.30-5.70); RED CELL DISTRIBUTION WIDTH 15.8 % (11.5-14.5); WHITE BLOOD COUNT 11.6 x10^3/uL (4.0-11.0)
[2021-04-26] MEDS: NOREPINEPHRINE VIAL 8 MG in IV DEXTROSE 5% 250 ML IV PRN ×2 (12:14→17:53)
--- NOTE | 2021-04-26 12:55 | PDOC ---
CAMRYN DRAPER PANTRY STEWARD/STEWARDESS 04/26/21 1255: CARDIO Progress Notes Date and Time Date of Service 04/26/21 Time of Evaluation 1250 Subjective Subjective: Other (intubated ) Vitals Vitals Vital Signs Date Time Temp Pulse Resp B/P (MAP) Pulse Ox O2 Delivery O2 Flow Rate FiO2 04/26/21 12:50 99.5 89 20 122/84 (97) 100 Ventilator 99.5 Weight Weight [ ] Input and Output Intake and Output Intake and Output 04/26/21 07:00 Intake Total 2451 ml Output Total 1985 ml Balance 466 ml Intake IV Total 1405 ml Tube Feeding 846 ml Other 200 ml Output Urine Total 1385 ml Gastric Drainage Total 600 ml # Bowel Movements 1 Laboratory Labs Laboratory Tests Test 04/25/21 13:00 04/25/21 17:19 04/25/21 21:15 04/26/21 00:43 Heparin Anti-Xa Act, Unfractionated 0.66 IU/mL (0.30-0.70) 0.64 IU/mL (0.30-0.70) Glucose (Fingerstick) 103 mg/dL (70-99) 236 mg/dL (70-99) Potassium Level 3.6 mmol/L (3.5-5.1) Phosphorus Level 5.4 mg/dL (2.6-4.7) Magnesium Level 2.1 mg/dL (1.8-2.4) Test 04/26/21 04:30 04/26/21 08:36 04/26/21 11:00 04/26/21 11:04 Heparin Anti-Xa Act, Unfractionated 0.53 IU/mL (0.30-0.70) 0.43 IU/mL (0.30-0.70) Sodium Level 135 mmol/L (136-145) Potassium Level 3.8 mmol/L (3.5-5.1) Chloride Level 103 mmol/L (98-107) Carbon Dioxide Level 16 mmol/L (21-32) Anion Gap 16 (6-14) Blood Urea Nitrogen 36 mg/dL (8-26) Creatinine 3.2 mg/dL (0.7-1.3) Estimated GFR (Cockcroft-Gault) 23.1 BUN/Creatinine Ratio 11 (6-20) Glucose Level 223 mg/dL (70-99) Calcium Level 7.6 mg/dL (8.5-10.1) Total Bilirubin 1.2 mg/dL (0.2-1.0) Aspartate Amino Transf (AST/SGOT) 57 U/L (15-37) Alanine Aminotransferase (ALT/SGPT) 22 U/L (16-63) Alkaline Phosphatase 38 U/L (46-116) Total Protein 5.4 g/dL (6.4-8.2) Albumin 1.6 g/dL (3.4-5.0) Albumin/Globulin Ratio 0.4 (1.0-1.7) O2 Saturation 95 % (92-99) Arterial Blood pH 7.37 (7.35-7.45) Arterial Blood pH (Temp corrected) 7.39 Arterial Blood pCO2 at Patient Temp 37 mmHg (35-46) Arterial Blood pCO2 (Temp correct) 34 mmHg Arterial Blood pO2 at Patient Temp 84 mmHg (65-108) Arterial Blood pO2 (Temp corrected) 75 mmHg Arterial Blood HCO3 21 mmol/L (21-28) Arterial Blood Base Excess -4 mmol/L (-3-3) FiO2 50 White Blood Count 11.6 x10^3/uL (4.0-11.0) Red Blood Count 3.51 x10^6/uL (4.30-5.70) Hemoglobin 9.3 g/dL (13.0-17.5) Hematocrit 28.8 % (39.0-53.0) Mean Corpuscular Volume 82 fL (79-100) Mean Corpuscular Hemoglobin 27 pg (25-35) Mean Corpuscular Hemoglobin Concent 32 g/dL (31-37) Red Cell Distribution Width 15.8 % (11.5-14.5) Platelet Count 207 x10^3/uL (140-400) Neutrophils (%) (Auto) 82 % (31-73) Lymphocytes (%) (Auto) 10 % (24-48) Monocytes (%) (Auto) 8 % (0-9) Eosinophils (%) (Auto) 0 % (0-3) Basophils (%) (Auto) 0 % (0-3) Neutrophils # (Auto) 9.5 x10^3/uL (1.8-7.7) Lymphocytes # (Auto) 1.2 x10^3/uL (1.0-4.8) Monocytes # (Auto) 0.9 x10^3/uL (0.0-1.1) Eosinophils # (Auto) 0.0 x10^3/uL (0.0-0.7) Basophils # (Auto) 0.0 x10^3/uL (0.0-0.2) Glucose (Fingerstick) 149 mg/dL (70-99) Microbiology Micro Microbiology 04/24/21 Blood Culture - Preliminary, Resulted NO GROWTH AFTER 1 DAY Physical Exam HEENT: Neck Supple W Full Motion Chest: Symmetric LUNGS: Other (MV) Heart: irregularly irregular (AFIB with intermittent RVR) Extremities: Other (2+ bilateral LE edema ) Neurology: other (sedated) Assessment Assessment 1. Acute respiratory failure secondary to CHF, s/p intubation. COVID + 2. Acute on chronic diastolic CHF; improved s/p IV diuresis 3. Hypertensive urgency; now hypotensive. on Levophed 4. NSTEMI; trop highest 2.6. Echo last week with preserved LV systolic function with moderate LVH. Most probable type II, demand ischemia in setting of above, although underling ischemic cannot be ruled otut 5. ? CAD; details unknown 6. Hyperlipidemia; statin 7. ILDA on CKD; Cr ^ 3.2 8. Diabetes, II 9. Leukocytosis 10. H/o bilateral subclavian stenosis s/p left subclavian sent placement complicated by retroperitoneal hematoma s/p evacuation in 08/2015. 11. New AFIB with RVR; remains in AFIB, rate intermittently elevated Recommendations ASA, statin Metoprolol held due to hypotension May use Dig IV PRN sparingly for RVR Pressor support as warranted Continue heparin for stroke prophylaxis Monitor H and H Ongoing lung optimization, treatment of COVID PNA as per pulm Follow renal recs Supportive care Justicifation of Admission Dx: Justifications for Admission: Justification of Admission Dx: Yes Aspiration Pneumonia: Hemodynamic Instability VIDAL RODRIGUEZ MD 04/26/21 172: CARDIO Progress Notes Assessment Assessment Patient seen and evaluated. I agree with our nurse practitioners assessment and plan. Acute respiratory failure secondary to CHF, s/p intubation. COVID +. Followed by the pulmonary service and ID. Acute on chronic diastolic CHF; improved s/p IV diuresis Hypertensive urgency; now hypotensive. on Levophed NSTEMI; trop highest 2.6. Echo last week with preserved LV systolic function with moderate LVH. Most probable type II, demand ischemia in setting of above, although underling ischemic cannot be ruled out CAD; details unknown Hyperlipidemia; statin ILDA on CKD; Cr ^ 3.2. As per renal. New AFIB with RVR; remains in AFIB, rate intermittently elevated CAMRYN DRAPER APRN Apr 26, 2021 12:55 VIDAL RODRIGUEZ MD Apr 26, 2021 17:26
[2021-04-26] MEDS ORDERED: DIGOXIN IV 500 MCG/2 ML AMPUL. IV ONE (13:00)
--- NOTE | 2021-04-26 15:09 | NUR ---
Increased patient's sedation r/t out of sync with vent.
[2021-04-26] MEDS: REMDESIVIR 100mg in NORMAL SALINE 250ML X 4 DAYS IV SCH (15:36)
[2021-04-26] MEDS: HEPARIN 25,000UTS/250ML PREMIX 250 ML IV PRN (15:37)
--- NOTE | 2021-04-26 15:51 | NUR ---
SS following up with discharge planning. SS reviewed pt chart and discussed with pt RN. Pt is currently on the vent at 50%. COVID19 positive. Pt on Fentanyl, Decadron, Heparin, Remdesivir, Versed, and Levophed. Not stable. SS will continue to follow for discharge planning.
--- NOTE | 2021-04-26 18:24 | NUR ---
Talked to patient's granddaughter, Brendan. She feels that her grandfather is giving up. She said that her grandfather misses his and is tired. She also states that he does not want to do dialysis. His had to and he didn't want to. She said that she would speak with her sister, Graciela and discussed code status. Updated patient's brother also. He said he would try and talk to his nieces about code status also.
[2021-04-26] MEDS: MONTELUKAST SODIUM 10 MG TABLET. PO SCH (21:09)
[2021-04-26] MEDS: ATORVASTATIN CALCIUM 40 MG TABLET. PO SCH (21:10)
[2021-04-27] VITALS (25 sets, daily range): BP systolic 99–171; BP diastolic 55–87
[2021-04-27] MEDS: INSULIN LISPRO 300 UNITS/3 ML VIAL. SQ SCH ×4 (00:45→17:02)
--- NOTE | 2021-04-27 01:22 | EKG ---
[facility] [address] [place] [address] Test Date: 2021-04-27 Test Time: 01:12:16 Pat Name: NILAM LAN Department: Room: 104 1 Gender: M Pitching Coach: EITAN : 1945 Requested By: BRIAN HARDING Order Number: [id number] Reading MD: Measurements Intervals [place] Rate: 105 P: [place]: QRS: -81 QRSD: 156 T: 78 QT: 382 QTc: 509 Interpretive Statements IRREGULAR RHYTHM, NO P-WAVE FOUND VENTRICULAR PREMATURE COMPLEX(ES) ABNORMAL LEFT AXIS DEVIATION LEFT ANTERIOR FASCICULAR BLOCK NON SPECIFIC INTRAVENTRICULAR BLOCK RVH WITH REPOLARIZATION ABNORMALITY QRS(T) CONTOUR ABNORMALITY CONSIDER ANTEROSEPTAL MYOCARDIAL DAMAGE ABNORMAL ECG RI6.02 Compared to ECG 04/24/2021 12:47:46 Left-axis deviation now present Left anterior fascicular block now present Right ventricular hypertrophy now present Early repolarization now present Sinus tachycardia no longer present Atrial abnormality no longer present T-wave abnormality no longer present Possible ischemia no longer present
--- NOTE | 2021-04-27 01:56 | NUR ---
patient is having short runs of v-tach. cardiology paged. Wait call back Addendum: 04/27/21 at 0326 by DAT CARRASCO RN AMIODARONE STARTED PER
[2021-04-27] MEDS ORDERED: AMIODARONE 450 MG in IV DEXTROSE 5% 250 ML IV PRN (02:30)
[2021-04-27] MEDS ORDERED: AMIODARONE 150 MG in IV DEXTROSE 5% 100ML 100 ML IV ONE (02:30)
[2021-04-27] MEDS: METOPROLOL IV PUSH 5 MG/5 ML VIAL. IVP SCH ×5 (04:28→23:54)
--- NOTE | 2021-04-27 06:30 | PDOC ---
[employer] PROGRESS NOTE Date of Service DOS: DATE: 04/27/21 TIME: 06:17 Chief Complaint Chief Complaint Acute respiratory failure with hypoxia - appears secondary to pulmonary edema vs pneumonia. Will diurese with IV Lasix and cover for HCAP with cefepime x1. Check procalcitonin follow-up blood cultures. COVID-19 pneumonia Pulmonology consulted for assistance in vent management. NSTEMI - possibly demand ischemia due to hypoxia, will trend troponins, consult cardiology New A. fib SIRS - likely sepsis from HCAP, treating with cefepime, given clear fluid overload will not give IVF. Trend WBC, f/u blood cultures. Hypertensive urgency - improved with intubation and sedation Hyperlipidemia - on statin CKD - appears currently at baseline Diabetes, II - sliding scale H/o bilateral subclavian stenosis s/p left subclavian sent placement complicated by retroperitoneal hematoma s/p evacuation in 08/2015. Marijuana use - will insurance counselor on any smoking with respiratory illness when awake Severe protein calorie malnutrition - his brother notes the patient has "given up" FEN - NPO PPX - heparin FULL CODE Dispo - inpatient History of Present Illness History of Present Illness Mr Cunha is a 75 yo male w/ PMHx CAD, HTN, Hyperlipidemia, subclavian steel syndrome, subclavian stenosis s/p left subclavian sent placement complicated by retroperitoneal hematoma s/p evacuation in 08/2015), asthma, BART, CKD, DM2 who presented from home with home health care noted that he was short of breath and valverde with O2 saturations less than 89% as low as 84% not improved with nasal cannulated oxygen placed on CPAP and brought to ED for further care. He was just discharged from the hospital a week ago on April 19, 2021 for abdominal pain and was going for further cardiac testing with outpatient stress testing scheduled on May 28, 2021. Had echocardiogram April 17, 2021 with normal-appearing EF with moderate concentric LVH no significant valvular abnormalities. WBC 20, Hb 10.7, platelets 268, NA 140, K3.8, BUN 21, CR 2.9, glucose 162, albumin 3, troponin I 1.372, NT proBNP 33,318. EKG appears sinus tachycardia rate of 105 bpm with multiple PACs small ST depressions in lead II and V5. TWI in V6. Chest radiograph with diffuse interstitial and alveolar opacities and ET tube 5.8 cm above the leilani. Due to worsening respiratory status ED physician elected to intubate patient. Seen postintubation. Blood pressure little low after propofol bolus, but improved. Significant white frothy sputum per ET tube. Admitted to ICU for further care 04/27/2021: Afebrile. On vent with FiO2 50%, PEEP 5. Troponin 2.8 yesterday; probable type II, demand ischemia. New onset A. fib. Continue heparin drip and as needed digoxin, per cardiology. Continue treatment with remdesivir, steroids, and prophylactic antibiotics. CBG 323 this morning; will add basal insulin. Critical care 30 minutes spent reviewing labs, reviewing imaging, reviewing charts, and discussion with RN. 04/26/2021: COVID-19 positive. Febrile overnight that was managed with cooling blankets. On vent with FiO2 50%, PEEP 5. Per cardiology, elevated troponins likely secondary to demand ischemia; continue heparin drip per cardiology. Maintain fluid balance and avoid nephrotoxins. Continue treatment with remdesivir, steroids, and prophylactic antibiotics. 30 minutes critical care time spent reviewing charts, reviewing labs, reviewing imaging, and discussion with RN. 04/25/2021: On vent FiO2 50, PEEP 5. Febrile, T-max 103.3. Patient was initiated on cooling blankets. Procalcitonin 0.13. Continue coverage for hospital-acquired pneumonia with cefepime. MRSA PCR pending. Critical care time 30 minutes spent reviewing charts, reviewing labs, review of imaging, discussion with RN. Vitals/I&O Vitals/I&O: Vital Signs Date Time Temp Pulse Resp B/P (MAP) Pulse Ox O2 Delivery O2 Flow Rate FiO2 04/27/21 04:53 60 20 134/63 (86) 98 Ventilator 04/27/21 02:00 98.2 98.2 I & O 04/26/21 04/26/21 04/27/21 15:00 23:00 07:00 Intake Total 200 ml 648 ml 1349 ml Output Total 160 ml 525 ml 195 ml Balance 40 ml 123 ml 1154 ml Physical Exam General: Other (Intubated sedated) Heart: Other (Tachycardic) Lungs: Other (Diminished breath sounds) Abdomen: Soft, Other (obese) Extremities: Other (trace LE edema ) Skin: No rashes, No breakdown, No significant lesion Labs Labs: Laboratory Tests Test 04/26/21 08:36 04/26/21 11:00 04/26/21 11:04 04/27/21 00:08 O2 Saturation 95 % (92-99) Arterial Blood pH 7.37 (7.35-7.45) Arterial Blood pH (Temp corrected) 7.39 Arterial Blood pCO2 at Patient Temp 37 mmHg (35-46) Arterial Blood pCO2 (Temp correct) 34 mmHg Arterial Blood pO2 at Patient Temp 84 mmHg (65-108) Arterial Blood pO2 (Temp corrected) 75 mmHg Arterial Blood HCO3 21 mmol/L (21-28) Arterial Blood Base Excess -4 mmol/L (-3-3) FiO2 50 White Blood Count 11.6 x10^3/uL (4.0-11.0) Red Blood Count 3.51 x10^6/uL (4.30-5.70) Hemoglobin 9.3 g/dL (13.0-17.5) Hematocrit 28.8 % (39.0-53.0) Mean Corpuscular Volume 82 fL (79-100) Mean Corpuscular Hemoglobin 27 pg (25-35) Mean Corpuscular Hemoglobin Concent 32 g/dL (31-37) Red Cell Distribution Width 15.8 % (11.5-14.5) Platelet Count 207 x10^3/uL (140-400) Neutrophils (%) (Auto) 82 % (31-73) Lymphocytes (%) (Auto) 10 % (24-48) Monocytes (%) (Auto) 8 % (0-9) Eosinophils (%) (Auto) 0 % (0-3) Basophils (%) (Auto) 0 % (0-3) Neutrophils # (Auto) 9.5 x10^3/uL (1.8-7.7) Lymphocytes # (Auto) 1.2 x10^3/uL (1.0-4.8) Monocytes # (Auto) 0.9 x10^3/uL (0.0-1.1) Eosinophils # (Auto) 0.0 x10^3/uL (0.0-0.7) Basophils # (Auto) 0.0 x10^3/uL (0.0-0.2) Heparin Anti-Xa Act, Unfractionated 0.43 IU/mL (0.30-0.70) Magnesium Level 2.3 mg/dL (1.8-2.4) Troponin I Quantitative 2.804 ng/mL (0.000-0.055) Glucose (Fingerstick) 149 mg/dL (70-99) 323 mg/dL (70-99) Test 04/27/21 05:42 Glucose (Fingerstick) 291 mg/dL (70-99) Assessment and Plan Assessmemt and Plan Problems Medical Problems: (1) Elevated troponin Status: Acute (2) Pulmonary edema Status: Acute Comment Review of Relevant I have reviewed the following items juanita (where applicable) has been applied. Medications: Current Medications Medications (Trade) Dose Ordered Sig/Jodie Route PRN Reason Start Time Stop Time Status Last Admin Dose Admin Remdesivir 100 mg/ Sodium Chloride 230 ml @ 460 mls/hr Q24H IV 04/26/21 17:30 04/29/21 17:59 04/26/21 15:36 Midazolam HCl 100 ml @ 0 mls/hr CONT PRN IV SEE PROTOCOL 04/26/21 07:00 04/26/21 21:34 Pantoprazole Sodium (PROTONIX VIAL for IV PUSH) 40 mg DAILYAC IVP 04/26/21 09:30 04/26/21 10:47 Norepinephrine Bitartrate 8 mg/ Dextrose 258 ml @ 25.349 mls/ hr CONT PRN IV PER PROTOCOL 04/26/21 12:15 04/26/21 17:53 Digoxin (Lanoxin) 250 mcg 1X ONCE IV 04/26/21 13:00 04/26/21 13:05 DC 04/26/21 15:02 Amiodarone HCl 150 mg/Dextrose 103 ml @ 618 mls/hr 1X ONCE IV 04/27/21 02:30 04/27/21 02:39 DC 04/27/21 02:30 Justifications for Admission General Conditions Altered mental status?: Yes Justification of admission: Patient has tachycardia (> 100 beats per minute) or hypotension (SBP < 90 mm Hg) leading to inadequate systemic perfusion as indicated by severe/persistent altered mental status. Other Justification SARAH BETH ARREOLA MD Apr 27, 2021 06:30
[2021-04-27 07:13] LABS: BASO # 0.1 x10^3/uL (0.0-0.2); BASO % 0 % (0-3); EOS % 0 % (0-3); HEMATOCRIT 30.9 % (39.0-53.0); HEMOGLOBIN 9.8 g/dL (13.0-17.5); LYMPH # 1.1 x10^3/uL (1.0-4.8); LYMPH % 6 % (24-48); MEAN CORPUSCULAR HEMOGLOBIN 27 pg (25-35); MEAN CORPUSCULAR HGB CONC 32 g/dL (31-37); MEAN CORPUSCULAR VOLUME 84 fL (79-100); MONO # 0.9 x10^3/uL (0.0-1.1); MONO % 5 % (0-9); NEUT # 17.3 x10^3/uL (1.8-7.7); NEUT % 89 % (31-73); PLATELET COUNT 212 x10^3/uL (140-400); RED CELL DISTRIBUTION WIDTH 15.7 % (11.5-14.5); WHITE BLOOD COUNT 19.4 x10^3/uL (4.0-11.0)
[2021-04-27 07:30] LABS: ALBUMIN 1.8 g/dL (3.4-5.0); ALBUMIN/GLOBULIN RATIO 0.6 (1.0-1.7); CALCIUM 7.4 mg/dL (8.5-10.1); GFR 17.8; POTASSIUM 3.9 mmol/L (3.5-5.1); TOTAL BILIRUBIN 0.5 mg/dL (0.2-1.0); TOTAL PROTEIN 4.8 g/dL (6.4-8.2)
[2021-04-27] MEDS: ASPIRIN ENTERIC COATED 81 MG TABLET.DR. PO SCH (08:08)
[2021-04-27] MEDS: PANTOPRAZOLE IV PUSH 40 MG VIAL. IVP SCH (08:09)
[2021-04-27] MEDS: DEXAMETHASONE SOD PHOS 4 MG/ML VIAL IVP SCH (08:09)
[2021-04-27] MEDS: CEFEPIME HCL IV Push 1 GM VIAL. IVP SCH (08:09)
--- NOTE | 2021-04-27 08:55 | PDOC ---
CARD[facility] Progress Notes Date and Time Date of Service 04/27/2021 Time of Evaluation 1050 Subjective Subjective: Other (intubated ) Vitals Vitals Vital Signs Date Time Temp Pulse Resp B/P (MAP) Pulse Ox O2 Delivery O2 Flow Rate FiO2 04/27/21 07:00 64 20 124/63 (83) 98 Ventilator 04/27/21 02:00 98.2 98.2 Weight Weight [ ] Input and Output Intake and Output Intake and Output 04/27/21 07:00 Intake Total 2197 ml Output Total 910 ml Balance 1287 ml Intake Oral 420 ml IV Total 977 ml Tube Feeding 600 ml Other 200 ml Output Urine Total 910 ml Laboratory Labs Laboratory Tests Test 04/26/21 11:00 04/26/21 11:04 04/27/21 00:08 04/27/21 05:42 White Blood Count 11.6 x10^3/uL (4.0-11.0) Red Blood Count 3.51 x10^6/uL (4.30-5.70) Hemoglobin 9.3 g/dL (13.0-17.5) Hematocrit 28.8 % (39.0-53.0) Mean Corpuscular Volume 82 fL (79-100) Mean Corpuscular Hemoglobin 27 pg (25-35) Mean Corpuscular Hemoglobin Concent 32 g/dL (31-37) Red Cell Distribution Width 15.8 % (11.5-14.5) Platelet Count 207 x10^3/uL (140-400) Neutrophils (%) (Auto) 82 % (31-73) Lymphocytes (%) (Auto) 10 % (24-48) Monocytes (%) (Auto) 8 % (0-9) Eosinophils (%) (Auto) 0 % (0-3) Basophils (%) (Auto) 0 % (0-3) Neutrophils # (Auto) 9.5 x10^3/uL (1.8-7.7) Lymphocytes # (Auto) 1.2 x10^3/uL (1.0-4.8) Monocytes # (Auto) 0.9 x10^3/uL (0.0-1.1) Eosinophils # (Auto) 0.0 x10^3/uL (0.0-0.7) Basophils # (Auto) 0.0 x10^3/uL (0.0-0.2) Heparin Anti-Xa Act, Unfractionated 0.43 IU/mL (0.30-0.70) Magnesium Level 2.3 mg/dL (1.8-2.4) Troponin I Quantitative 2.804 ng/mL (0.000-0.055) Glucose (Fingerstick) 149 mg/dL (70-99) 323 mg/dL (70-99) 291 mg/dL (70-99) Test 04/27/21 06:55 White Blood Count 19.4 x10^3/uL (4.0-11.0) Red Blood Count 3.70 x10^6/uL (4.30-5.70) Hemoglobin 9.8 g/dL (13.0-17.5) Hematocrit 30.9 % (39.0-53.0) Mean Corpuscular Volume 84 fL (79-100) Mean Corpuscular Hemoglobin 27 pg (25-35) Mean Corpuscular Hemoglobin Concent 32 g/dL (31-37) Red Cell Distribution Width 15.7 % (11.5-14.5) Platelet Count 212 x10^3/uL (140-400) Neutrophils (%) (Auto) 89 % (31-73) Lymphocytes (%) (Auto) 6 % (24-48) Monocytes (%) (Auto) 5 % (0-9) Eosinophils (%) (Auto) 0 % (0-3) Basophils (%) (Auto) 0 % (0-3) Neutrophils # (Auto) 17.3 x10^3/uL (1.8-7.7) Lymphocytes # (Auto) 1.1 x10^3/uL (1.0-4.8) Monocytes # (Auto) 0.9 x10^3/uL (0.0-1.1) Eosinophils # (Auto) 0.0 x10^3/uL (0.0-0.7) Basophils # (Auto) 0.1 x10^3/uL (0.0-0.2) Heparin Anti-Xa Act, Unfractionated 0.25 IU/mL (0.30-0.70) Sodium Level 138 mmol/L (136-145) Potassium Level 3.9 mmol/L (3.5-5.1) Chloride Level 102 mmol/L (98-107) Carbon Dioxide Level 22 mmol/L (21-32) Anion Gap 14 (6-14) Blood Urea Nitrogen 60 mg/dL (8-26) Creatinine 4.0 mg/dL (0.7-1.3) Estimated GFR (Cockcroft-Gault) 17.8 BUN/Creatinine Ratio 15 (6-20) Glucose Level 311 mg/dL (70-99) Calcium Level 7.4 mg/dL (8.5-10.1) Total Bilirubin 0.5 mg/dL (0.2-1.0) Aspartate Amino Transf (AST/SGOT) 61 U/L (15-37) Alanine Aminotransferase (ALT/SGPT) 30 U/L (16-63) Alkaline Phosphatase 37 U/L (46-116) Total Protein 4.8 g/dL (6.4-8.2) Albumin 1.8 g/dL (3.4-5.0) Albumin/Globulin Ratio 0.6 (1.0-1.7) Microbiology Micro Microbiology 04/24/21 Blood Culture - Preliminary, Resulted NO GROWTH AFTER 2 DAYS Physical Exam HEENT: Neck Supple W Full Motion Chest: Symmetric LUNGS: Other (MV) Heart: RRR (SR with PVCs) Abdomen: Other (soft) Extremities: Other (2+ bilateral LE edema ) Neurology: other (sedated) Assessment Assessment 1. Acute respiratory failure secondary to CHF, s/p intubation. COVID + 2. Acute on chronic diastolic CHF 3. Hypertensive urgency; controlled, off levophed 4. NSTEMI; trop highest 2.8. Echo last week with preserved LV systolic function with moderate LVH. Most probable type II, demand ischemia in setting of above, although underling ischemic cannot be ruled otut 5. ? CAD; details unknown 6. Hyperlipidemia; statin 7. ILDA on CKD; per nephrology. Could not rule out possible renal cardioembolism given AFIB 8. Diabetes, II 9. Leukocytosis 10. H/o bilateral subclavian stenosis s/p left subclavian sent placement complicated by retroperitoneal hematoma s/p evacuation in 08/2015. 11. New AFIB with RVR: currently SR Recommendations ASA, statin Amiodarone drip, switch to per OG tomorrow. Continue heparin drip for now and will need eliquis moving forward May use Dig IV PRN sparingly for RVR Pressor support as warranted H/H stable continue heparin for stroke prophylaxis Ongoing lung optimization, treatment of COVID PNA as per pulm Cr worse at 4, may need HD otherwise will diurese with lasix Supportive care Justicifation of Admission Dx: Justifications for Admission: Justification of Admission Dx: Yes Aspiration Pneumonia: Hemodynamic Instability BON [employer]WANT [employer] Apr 27, 2021 08:55
[2021-04-27 09:03] LABS: BASE EXCESS ABG -5 mmol/L (-3-3); HCO3 ABG 20 mmol/L (21-28); PCO2 ABG 38 mmHg (35-46); PO2 ABG 86 mmHg (65-108); SAT O2 ABG 95 % (92-99)
--- NOTE | 2021-04-27 09:07 | NUR ---
SS following up with discharge planning. SS reviewed pt chart and discussed with pt RN. Pt is currently on the vent at 50%. COVID19 positive. Pt on Amiodarone, Heparin, Versed, Fentanyl, and Levophed. Pt on Remdesivir, IV Decadron, and IV Cefepime. Not stable. SS will continue to follow for discharge planning.
[2021-04-27 09:10] LABS: FIO2 ABG 50%
[2021-04-27] MEDS ORDERED: SODIUM BICARB ADULT 8.4% 50 MEQ/50 ML DISP.SYRIN. IV ONE (09:45)
[2021-04-27] MEDS: MIDAZOLAM 100mg/100ml NS BAG 100 ML IV PRN (09:52)
--- NOTE | 2021-04-27 10:45 | PDOC ---
DATE OF SERVICE DATE: 04/27/21 TIME: 10:42 SUBJECTIVE ROS Remains intubated OBJECTIVE Vital Signs Vital Signs Date Time Temp Pulse Resp B/P (MAP) Pulse Ox O2 Delivery O2 Flow Rate FiO2 04/27/21 09:51 98 Ventilator 04/27/21 07:00 64 20 124/63 (83) 04/27/21 02:00 98.2 98.2 I & 0 Intake and Output 04/27/21 07:00 Intake Total 2197 ml Output Total 910 ml Balance 1287 ml Intake Oral 420 ml IV Total 977 ml Tube Feeding 600 ml Other 200 ml Output Urine Total 910 ml PHYSICAL EXAM Physical Exam General - Intubated, MV HEEN intubated Neck supple Lungs CTA, Non labored CV RRR Abd Soft, NT Ext No LE edema Nieves + Neuro Soft, BS + Psych Unable to assess DIAGNOSIS/ASSESSMENT Assessment & Plan ILDA on CKD - ATN 2/2 sepsis/ Hypotension, Non Oliguric ,stable .Maintain fluid balance , E-Lytes stable, Renal US pending Will get Temp HDC ,Currently no indication for emergent dialysis , monitor Supportive care , avoid nephrotoxins, Lasix prn - dw Nursing CKD stage 4 - Baseline Cr 2.4 -2.7 ,Mild echogenic appearing right kidney probably medical renal disease. Recent CT Atrophic appearance of the right kid kayli. COVID-19 positive - Abnormal CT chest with bilateral diffuse interstitial infiltrates without any significant pleural effusion. Acute respiratory failure with Hypoxia Currently Intubated ; stable Atrial Fib- per Cardiology HypoKalemia - Normal K, replace as indicated Cholelithiasis Anemia Severe HypoAlbuminemia DM II Hypotension - Low BP, at presentation , resolved; Low again this morning, not requiring pressor support HTN- On antihypertensives @ home NSTEMI - possibly demand ischemia SIRS - likely sepsis from HCAP H/o bilateral Subclavian stenosis s/p left subclavian sent placement complicated by retroperitoneal hematoma s/p evacuation in 08/2015. Hx of Marijuana use COMMENT/RELEVANT DATA Meds Current Medications Medications (Trade) Dose Ordered Sig/Jodie Start Time Stop Time Status Last Admin Dose Admin Acetaminophen (Tylenol) 650 mg PRN Q6HRS PRN 04/24/21 14:00 Cancel Amiodarone HCl 150 mg/Dextrose 103 ml @ 618 mls/hr 1X ONCE 04/27/21 02:30 04/27/21 02:39 DC 7/23/21 02:30 618 MLS/HR Amiodarone HCl 450 mg/Dextrose 259 ml @ 33 mls/hr CONT PRN 04/27/21 02:30 Aspirin (Ecotrin) 81 mg [id number] 04/25/21 08:00 04/27/21 08:08 81 MG Atorvastatin Calcium (Lipitor) 80 mg QHS 04/24/21 21:00 04/26/21 21:10 80 MG Bisacodyl (Dulcolax Supp) 10 mg PRN DAILY PRN 04/24/21 14:00 Carvedilol (Coreg) 3.125 mg BIDWMEALS 04/24/21 17:00 04/25/21 15:42 DC 04/25/21 09:23 3.125 MG Cefepime HCl (Maxipime) 1 gm Q24H 04/28/21 09:30 Chlorhexidine Gluconate (Peridex) 15 ml BID 04/24/21 21:00 04/25/21 11:19 DC 04/24/21 20:49 15 ML Dexamethasone Sodium Phosphate (Decadron) 6 mg DAILY 04/25/21 17:00 04/27/21 08:09 6 MG Dextrose (Dextrose 50%-Water Syringe) 12.5 gm PRN Q15MIN PRN 04/24/21 16:30 04/24/21 23:43 12.5 GM Digoxin (Lanoxin) 250 mcg 1X ONCE 04/26/21 13:00 04/26/21 13:05 DC 04/26/21 15:02 250 MCG Etomidate (Amidate) 20 mg STK-MED ONCE 04/24/21 13:38 04/24/21 13:38 DC Fentanyl Citrate 30 ml @ 0 mls/hr CONT PRN 04/24/21 14:00 04/27/21 09:51 3.75 MLS/HR Fentanyl Citrate (Fentanyl 2ml Vial) 25 mcg PRN Q1HR PRN 04/24/21 14:00 04/24/21 16:39 25 MCG Furosemide (Lasix) 40 mg 1X ONCE 04/25/21 11:30 04/25/21 11:31 DC Heparin Sodium (Porcine) (Heparin Sodium) 3,200 unit PRN Q6HRS PRN 04/24/21 16:45 04/24/21 23:32 3,200 UNIT Heparin Sodium/ Dextrose 250 ml @ 0 mls/hr CONT PRN 04/24/21 16:45 04/26/21 15:37 8.4 MLS/HR Hydralazine HCl (Apresoline Inj) 10 mg PRN Q4HRS PRN 04/25/21 14:45 Info (Anti-Coagulation Monitoring By Pharmacy) 1 each PRN DAILY PRN 04/25/21 13:00 04/26/21 08:51 1 EACH Insulin Glargine (Lantus Syringe) 25 unit QHS 04/27/21 21:00 Insulin Human Lispro (HumaLOG) 0-9 UNITS Q6HRS 04/24/21 18:00 04/27/21 05:44 7 UNITS Metoprolol Tartrate (Lopressor Vial) 5 mg Q6HRS 04/25/21 18:00 04/26/21 00:56 5 MG Midazolam HCl 100 ml @ 0 mls/hr CONT PRN 04/26/21 07:00 04/27/21 09:52 6 MLS/HR Montelukast Sodium (Singulair) 10 mg HS 04/24/21 21:00 04/26/21 21:09 10 MG Norepinephrine Bitartrate 8 mg/ Dextrose 258 ml @ 25.349 mls/ hr CONT PRN 04/26/21 12:15 04/26/21 17:53 19.4 MLS/HR Ondansetron HCl (Zofran) 4 mg PRN Q6HRS PRN 04/24/21 14:00 Pantoprazole Sodium (PROTONIX VIAL for IV PUSH) 40 mg DAILYAC 04/26/21 09:30 04/27/21 08:09 40 MG Propofol 100 ml @ 0 mls/hr CONT PRN 04/24/21 15:30 04/26/21 05:25 15.2 MLS/HR Remdesivir 100 mg/ Sodium Chloride 230 ml @ 460 mls/hr Q24H 04/26/21 17:30 04/29/21 17:59 04/26/21 15:36 460 MLS/HR Remdesivir 200 mg/ Sodium Chloride 210 ml @ 210 mls/hr 1X ONCE 04/25/21 17:30 04/25/21 18:29 DC 04/25/21 17:09 210 MLS/HR Sodium Bicarbonate (Sodium Bicarb Adult 8.4% Syr) 50 meq 1X ONCE 04/27/21 09:45 04/27/21 09:46 DC 04/27/21 09:50 50 MEQ Sodium Chloride (Normal Saline Flush) 3 ml QSHIFT PRN 04/24/21 14:00 Succinylcholine Chloride (Anectine) 200 mg STK-MED ONCE 04/24/21 13:38 04/24/21 13:38 DC Lab Laboratory Tests Test 04/26/21 11:00 04/26/21 11:04 04/27/21 00:08 04/27/21 05:42 White Blood Count 11.6 x10^3/uL (4.0-11.0) Red Blood Count 3.51 x10^6/uL (4.30-5.70) Hemoglobin 9.3 g/dL (13.0-17.5) Hematocrit 28.8 % (39.0-53.0) Mean Corpuscular Volume 82 fL (79-100) Mean Corpuscular Hemoglobin 27 pg (25-35) Mean Corpuscular Hemoglobin Concent 32 g/dL (31-37) Red Cell Distribution Width 15.8 % (11.5-14.5) Platelet Count 207 x10^3/uL (140-400) Neutrophils (%) (Auto) 82 % (31-73) Lymphocytes (%) (Auto) 10 % (24-48) Monocytes (%) (Auto) 8 % (0-9) Eosinophils (%) (Auto) 0 % (0-3) Basophils (%) (Auto) 0 % (0-3) Neutrophils # (Auto) 9.5 x10^3/uL (1.8-7.7) Lymphocytes # (Auto) 1.2 x10^3/uL (1.0-4.8) Monocytes # (Auto) 0.9 x10^3/uL (0.0-1.1) Eosinophils # (Auto) 0.0 x10^3/uL (0.0-0.7) Basophils # (Auto) 0.0 x10^3/uL (0.0-0.2) Heparin Anti-Xa Act, Unfractionated 0.43 IU/mL (0.30-0.70) Magnesium Level 2.3 mg/dL (1.8-2.4) Troponin I Quantitative 2.804 ng/mL (0.000-0.055) Glucose (Fingerstick) 149 mg/dL (70-99) 323 mg/dL (70-99) 291 mg/dL (70-99) Test 04/27/21 06:55 04/27/21 08:49 White Blood Count 19.4 x10^3/uL (4.0-11.0) Red Blood Count 3.70 x10^6/uL (4.30-5.70) Hemoglobin 9.8 g/dL (13.0-17.5) Hematocrit 30.9 % (39.0-53.0) Mean Corpuscular Volume 84 fL (79-100) Mean Corpuscular Hemoglobin 27 pg (25-35) Mean Corpuscular Hemoglobin Concent 32 g/dL (31-37) Red Cell Distribution Width 15.7 % (11.5-14.5) Platelet Count 212 x10^3/uL (140-400) Neutrophils (%) (Auto) 89 % (31-73) Lymphocytes (%) (Auto) 6 % (24-48) Monocytes (%) (Auto) 5 % (0-9) Eosinophils (%) (Auto) 0 % (0-3) Basophils (%) (Auto) 0 % (0-3) Neutrophils # (Auto) 17.3 x10^3/uL (1.8-7.7) Lymphocytes # (Auto) 1.1 x10^3/uL (1.0-4.8) Monocytes # (Auto) 0.9 x10^3/uL (0.0-1.1) Eosinophils # (Auto) 0.0 x10^3/uL (0.0-0.7) Basophils # (Auto) 0.1 x10^3/uL (0.0-0.2) Heparin Anti-Xa Act, Unfractionated 0.25 IU/mL (0.30-0.70) Sodium Level 138 mmol/L (136-145) Potassium Level 3.9 mmol/L (3.5-5.1) Chloride Level 102 mmol/L (98-107) Carbon Dioxide Level 22 mmol/L (21-32) Anion Gap 14 (6-14) Blood Urea Nitrogen 60 mg/dL (8-26) Creatinine 4.0 mg/dL (0.7-1.3) Estimated GFR (Cockcroft-Gault) 17.8 BUN/Creatinine Ratio 15 (6-20) Glucose Level 311 mg/dL (70-99) Calcium Level 7.4 mg/dL (8.5-10.1) Total Bilirubin 0.5 mg/dL (0.2-1.0) Aspartate Amino Transf (AST/SGOT) 61 U/L (15-37) Alanine Aminotransferase (ALT/SGPT) 30 U/L (16-63) Alkaline Phosphatase 37 U/L (46-116) Total Protein 4.8 g/dL (6.4-8.2) Albumin 1.8 g/dL (3.4-5.0) Albumin/Globulin Ratio 0.6 (1.0-1.7) O2 Saturation 95 % (92-99) Arterial Blood pH 7.35 (7.35-7.45) Arterial Blood pCO2 at Patient Temp 38 mmHg (35-46) Arterial Blood pO2 at Patient Temp 86 mmHg (65-108) Arterial Blood HCO3 20 mmol/L (21-28) Arterial Blood Base Excess -5 mmol/L (-3-3) FiO2 50% Results All relevant outside records, renal labs, imaging studies, telemetry/EKG's were reviewed. Justicifation of Admission Dx: Justifications for Admission: Justification of Admission Dx: Yes Aspiration Pneumonia: Hemodynamic Instability JASMEET LAM MD Apr 27, 2021 10:45
--- NOTE | 2021-04-27 10:51 | PDOC ---
PULMONARY PROGRESS NOTES DATE: 04/27/21 TIME: 10:48 Subjective Patient is resting on mechanical ventilation assist control mode 50% and a PEEP of 5 Worsening renal function COVID-19 positive Sedated with propofol and fentanyl, remains on heparin drip Vitals Vital Signs Date Time Temp Pulse Resp B/P (MAP) Pulse Ox O2 Delivery O2 Flow Rate FiO2 04/27/21 09:51 98 Ventilator 04/27/21 07:00 64 20 124/63 (83) 04/27/21 02:00 98.2 98.2 Comments Visual exam done due to COVID-19. Intubated and sedated No paradoxical breathing. Labs Laboratory Tests Test 04/25/21 11:51 04/25/21 13:00 04/25/21 17:19 04/25/21 21:15 Glucose (Fingerstick) 73 mg/dL (70-99) 103 mg/dL (70-99) Heparin Anti-Xa Act, Unfractionated 0.66 IU/mL (0.30-0.70) 0.64 IU/mL (0.30-0.70) Potassium Level 3.6 mmol/L (3.5-5.1) Phosphorus Level 5.4 mg/dL (2.6-4.7) Magnesium Level 2.1 mg/dL (1.8-2.4) Test 04/25/21 22:58 04/26/21 00:43 04/26/21 04:30 04/26/21 08:36 Nasal Screen MRSA (PCR) Negative (NEGATIVE) Glucose (Fingerstick) 236 mg/dL (70-99) Heparin Anti-Xa Act, Unfractionated 0.53 IU/mL (0.30-0.70) Sodium Level 135 mmol/L (136-145) Potassium Level 3.8 mmol/L (3.5-5.1) Chloride Level 103 mmol/L (98-107) Carbon Dioxide Level 16 mmol/L (21-32) Anion Gap 16 (6-14) Blood Urea Nitrogen 36 mg/dL (8-26) Creatinine 3.2 mg/dL (0.7-1.3) Estimated GFR (Cockcroft-Gault) 23.1 BUN/Creatinine Ratio 11 (6-20) Glucose Level 223 mg/dL (70-99) Calcium Level 7.6 mg/dL (8.5-10.1) Total Bilirubin 1.2 mg/dL (0.2-1.0) Aspartate Amino Transf (AST/SGOT) 57 U/L (15-37) Alanine Aminotransferase (ALT/SGPT) 22 U/L (16-63) Alkaline Phosphatase 38 U/L (46-116) Total Protein 5.4 g/dL (6.4-8.2) Albumin 1.6 g/dL (3.4-5.0) Albumin/Globulin Ratio 0.4 (1.0-1.7) O2 Saturation 95 % (92-99) Arterial Blood pH 7.37 (7.35-7.45) Arterial Blood pH (Temp corrected) 7.39 Arterial Blood pCO2 at Patient Temp 37 mmHg (35-46) Arterial Blood pCO2 (Temp correct) 34 mmHg Arterial Blood pO2 at Patient Temp 84 mmHg (65-108) Arterial Blood pO2 (Temp corrected) 75 mmHg Arterial Blood HCO3 21 mmol/L (21-28) Arterial Blood Base Excess -4 mmol/L (-3-3) FiO2 50 Test 04/26/21 11:00 04/26/21 11:04 04/27/21 00:08 04/27/21 05:42 White Blood Count 11.6 x10^3/uL (4.0-11.0) Red Blood Count 3.51 x10^6/uL (4.30-5.70) Hemoglobin 9.3 g/dL (13.0-17.5) Hematocrit 28.8 % (39.0-53.0) Mean Corpuscular Volume 82 fL (79-100) Mean Corpuscular Hemoglobin 27 pg (25-35) Mean Corpuscular Hemoglobin Concent 32 g/dL (31-37) Red Cell Distribution Width 15.8 % (11.5-14.5) Platelet Count 207 x10^3/uL (140-400) Neutrophils (%) (Auto) 82 % (31-73) Lymphocytes (%) (Auto) 10 % (24-48) Monocytes (%) (Auto) 8 % (0-9) Eosinophils (%) (Auto) 0 % (0-3) Basophils (%) (Auto) 0 % (0-3) Neutrophils # (Auto) 9.5 x10^3/uL (1.8-7.7) Lymphocytes # (Auto) 1.2 x10^3/uL (1.0-4.8) Monocytes # (Auto) 0.9 x10^3/uL (0.0-1.1) Eosinophils # (Auto) 0.0 x10^3/uL (0.0-0.7) Basophils # (Auto) 0.0 x10^3/uL (0.0-0.2) Heparin Anti-Xa Act, Unfractionated 0.43 IU/mL (0.30-0.70) Magnesium Level 2.3 mg/dL (1.8-2.4) Troponin I Quantitative 2.804 ng/mL (0.000-0.055) Glucose (Fingerstick) 149 mg/dL (70-99) 323 mg/dL (70-99) 291 mg/dL (70-99) Test 04/27/21 06:55 04/27/21 08:49 White Blood Count 19.4 x10^3/uL (4.0-11.0) Red Blood Count 3.70 x10^6/uL (4.30-5.70) Hemoglobin 9.8 g/dL (13.0-17.5) Hematocrit 30.9 % (39.0-53.0) Mean Corpuscular Volume 84 fL (79-100) Mean Corpuscular Hemoglobin 27 pg (25-35) Mean Corpuscular Hemoglobin Concent 32 g/dL (31-37) Red Cell Distribution Width 15.7 % (11.5-14.5) Platelet Count 212 x10^3/uL (140-400) Neutrophils (%) (Auto) 89 % (31-73) Lymphocytes (%) (Auto) 6 % (24-48) Monocytes (%) (Auto) 5 % (0-9) Eosinophils (%) (Auto) 0 % (0-3) Basophils (%) (Auto) 0 % (0-3) Neutrophils # (Auto) 17.3 x10^3/uL (1.8-7.7) Lymphocytes # (Auto) 1.1 x10^3/uL (1.0-4.8) Monocytes # (Auto) 0.9 x10^3/uL (0.0-1.1) Eosinophils # (Auto) 0.0 x10^3/uL (0.0-0.7) Basophils # (Auto) 0.1 x10^3/uL (0.0-0.2) Heparin Anti-Xa Act, Unfractionated 0.25 IU/mL (0.30-0.70) Sodium Level 138 mmol/L (136-145) Potassium Level 3.9 mmol/L (3.5-5.1) Chloride Level 102 mmol/L (98-107) Carbon Dioxide Level 22 mmol/L (21-32) Anion Gap 14 (6-14) Blood Urea Nitrogen 60 mg/dL (8-26) Creatinine 4.0 mg/dL (0.7-1.3) Estimated GFR (Cockcroft-Gault) 17.8 BUN/Creatinine Ratio 15 (6-20) Glucose Level 311 mg/dL (70-99) Calcium Level 7.4 mg/dL (8.5-10.1) Total Bilirubin 0.5 mg/dL (0.2-1.0) Aspartate Amino Transf (AST/SGOT) 61 U/L (15-37) Alanine Aminotransferase (ALT/SGPT) 30 U/L (16-63) Alkaline Phosphatase 37 U/L (46-116) Total Protein 4.8 g/dL (6.4-8.2) Albumin 1.8 g/dL (3.4-5.0) Albumin/Globulin Ratio 0.6 (1.0-1.7) O2 Saturation 95 % (92-99) Arterial Blood pH 7.35 (7.35-7.45) Arterial Blood pCO2 at Patient Temp 38 mmHg (35-46) Arterial Blood pO2 at Patient Temp 86 mmHg (65-108) Arterial Blood HCO3 20 mmol/L (21-28) Arterial Blood Base Excess -5 mmol/L (-3-3) FiO2 50% Laboratory Tests Test 04/26/21 11:00 04/26/21 11:04 04/27/21 00:08 04/27/21 05:42 White Blood Count 11.6 x10^3/uL (4.0-11.0) Red Blood Count 3.51 x10^6/uL (4.30-5.70) Hemoglobin 9.3 g/dL (13.0-17.5) Hematocrit 28.8 % (39.0-53.0) Mean Corpuscular Volume 82 fL (79-100) Mean Corpuscular Hemoglobin 27 pg (25-35) Mean Corpuscular Hemoglobin Concent 32 g/dL (31-37) Red Cell Distribution Width 15.8 % (11.5-14.5) Platelet Count 207 x10^3/uL (140-400) Neutrophils (%) (Auto) 82 % (31-73) Lymphocytes (%) (Auto) 10 % (24-48) Monocytes (%) (Auto) 8 % (0-9) Eosinophils (%) (Auto) 0 % (0-3) Basophils (%) (Auto) 0 % (0-3) Neutrophils # (Auto) 9.5 x10^3/uL (1.8-7.7) Lymphocytes # (Auto) 1.2 x10^3/uL (1.0-4.8) Monocytes # (Auto) 0.9 x10^3/uL (0.0-1.1) Eosinophils # (Auto) 0.0 x10^3/uL (0.0-0.7) Basophils # (Auto) 0.0 x10^3/uL (0.0-0.2) Heparin Anti-Xa Act, Unfractionated 0.43 IU/mL (0.30-0.70) Magnesium Level 2.3 mg/dL (1.8-2.4) Troponin I Quantitative 2.804 ng/mL (0.000-0.055) Glucose (Fingerstick) 149 mg/dL (70-99) 323 mg/dL (70-99) 291 mg/dL (70-99) Test 04/27/21 06:55 04/27/21 08:49 White Blood Count 19.4 x10^3/uL (4.0-11.0) Red Blood Count 3.70 x10^6/uL (4.30-5.70) Hemoglobin 9.8 g/dL (13.0-17.5) Hematocrit 30.9 % (39.0-53.0) Mean Corpuscular Volume 84 fL (79-100) Mean Corpuscular Hemoglobin 27 pg (25-35) Mean Corpuscular Hemoglobin Concent 32 g/dL (31-37) Red Cell Distribution Width 15.7 % (11.5-14.5) Platelet Count 212 x10^3/uL (140-400) Neutrophils (%) (Auto) 89 % (31-73) Lymphocytes (%) (Auto) 6 % (24-48) Monocytes (%) (Auto) 5 % (0-9) Eosinophils (%) (Auto) 0 % (0-3) Basophils (%) (Auto) 0 % (0-3) Neutrophils # (Auto) 17.3 x10^3/uL (1.8-7.7) Lymphocytes # (Auto) 1.1 x10^3/uL (1.0-4.8) Monocytes # (Auto) 0.9 x10^3/uL (0.0-1.1) Eosinophils # (Auto) 0.0 x10^3/uL (0.0-0.7) Basophils # (Auto) 0.1 x10^3/uL (0.0-0.2) Heparin Anti-Xa Act, Unfractionated 0.25 IU/mL (0.30-0.70) Sodium Level 138 mmol/L (136-145) Potassium Level 3.9 mmol/L (3.5-5.1) Chloride Level 102 mmol/L (98-107) Carbon Dioxide Level 22 mmol/L (21-32) Anion Gap 14 (6-14) Blood Urea Nitrogen 60 mg/dL (8-26) Creatinine 4.0 mg/dL (0.7-1.3) Estimated GFR (Cockcroft-Gault) 17.8 BUN/Creatinine Ratio 15 (6-20) Glucose Level 311 mg/dL (70-99) Calcium Level 7.4 mg/dL (8.5-10.1) Total Bilirubin 0.5 mg/dL (0.2-1.0) Aspartate Amino Transf (AST/SGOT) 61 U/L (15-37) Alanine Aminotransferase (ALT/SGPT) 30 U/L (16-63) Alkaline Phosphatase 37 U/L (46-116) Total Protein 4.8 g/dL (6.4-8.2) Albumin 1.8 g/dL (3.4-5.0) Albumin/Globulin Ratio 0.6 (1.0-1.7) O2 Saturation 95 % (92-99) Arterial Blood pH 7.35 (7.35-7.45) Arterial Blood pCO2 at Patient Temp 38 mmHg (35-46) Arterial Blood pO2 at Patient Temp 86 mmHg (65-108) Arterial Blood HCO3 20 mmol/L (21-28) Arterial Blood Base Excess -5 mmol/L (-3-3) FiO2 50% Medications Active Scripts Medications Dose Route/Sig Max Daily Dose Days Date Category Glyburide 2.5 Mg Tablet 1 Tab PO DAILY 04/19/21 Rx Polyethylene Glycol 3350 17 Gm Powd.pack 17 Gm PO DAILY 04/19/21 Rx Dok (Docusate Sodium) 100 Mg Capsule 100 Mg PO PRN DAILY PRN 30 04/19/21 Rx Bisacodyl 5 Mg Tablet.dr 5 Mg PO PRN DAILY PRN 04/19/21 Rx Acetaminophen 325 Mg Tablet 650 Mg PO PRN Q4HRS PRN 04/19/21 Rx Aspirin Ec (Aspirin) 81 Mg Tablet.dr 81 Mg PO DAILYWBKFT 04/19/21 Rx Hydralazine Hcl 25 Mg Tablet 25 Mg PO QID 04/19/21 Rx Fenofibrate 54 Mg Tablet 1 Tab PO DAILY 04/17/21 Reported Potassium Chloride (Potassium Chloride) 20 Meq Tablet.er 20 Meq PO DAILY 04/17/21 Reported Coreg (Carvedilol) 12.5 Mg Tablet 37.5 Mg PO BIDWMEALS 04/17/21 Reported Rosuvastatin Calcium 40 Mg Tablet 40 Mg PO QHS 04/17/21 Reported Gabapentin (Gabapentin) 100 Mg Capsule 200 Mg PO BID 04/17/21 Reported Montelukast Sodium Tablet (Montelukast Sodium) 10 Mg Tablet 10 Mg PO HS 04/17/21 Reported Protonix (Pantoprazole Sodium) 20 Mg Tablet.dr 2 Tab PO DAILY 04/17/21 Reported Amlodipine Besylate 5 Mg Tablet 5 Mg PO DAILY 04/17/21 Reported Furosemide 40 Mg Tablet 1 Tab PO DAILY 04/17/21 Reported Proair Hfa Inhaler (Albuterol Sulfate) 8.5 Gm Hfa.aer.ad 2 Puff IH PRN Q4-6HRS PRN 04/16/21 Reported Advair 100-50 Diskus (Fluticasone/Salmeterol) 1 Each Disk.w.dev 1 Puff IH BID 04/16/21 Reported Comments Chest x-ray reviewed 04/27. Worsening CHF Impression . IMPRESSION: 1. Acute hypoxic respiratory failure secondary to bilateral diffuse interstitial infiltrates. --COVID-[address] chest with bilateral diffuse interstitial infiltrates without any significant pleural effusion. Consistent with viral pneumonia. 3. History of recent hospitalization for abdominal pain. He was supposed to have cardiac testing and outpatient stress test. Now, he is hospitalized. Echo with normal ejection fraction and moderate left ventricular hypertrophy. 4. Abnormal troponin, likely [id number] elevation myocardial infarction. 5. History of tobacco use, details of length not available. 6. Chronic kidney disease. Worsening ILDA on CKD 7. Increasing metabolic acidosis secondary to ILDA. 8. Worsening CHF Plan . Updated 04/27/2021 Continue current vent support assist-control mode 26/500/50%/5 Once down to 40% FiO2, will try weaning sedation and assess mental status. ABG/chest x-ray reviewed, Continue empiric antibiotics with cefepime Continue steroids Continue remdesivir Follow cardiology recommendations continue heparin drip Follow nephrology recs COVID-19 positive Initiated on tube feeding Discussed with nephrology. Will be planning for hemodialysis catheter placement to correct metabolic acidosis as well as congestive heart failure DVT/GI prophylaxis Discussed with RN and RT Critical care time 30 minutes Updated 04/26/2021 Continue current vent support assist-control mode 26/500/50%/5 Once down to 40% FiO2, will try weaning sedation and assess mental status. ABG/chest x-ray reviewed, Continue empiric antibiotics with cefepime Continue steroids Continue remdesivir Follow cardiology recommendations continue heparin drip Follow nephrology recs COVID-19 positive Initiated on tube feeding DVT/GI prophylaxis Discussed with RN and RT Critical care time 30 minutes Updated 04/25/2021 Continue current vent support assist-control mode 26/500/50%/5 ABG/chest x-ray reviewed, reduce respiratory rate to 20 Continue empiric antibiotics with cefepime Continue steroids Continue remdesivir Follow cardiology recommendations continue heparin drip Follow nephrology recs COVID-19 positive Consult dietitian to initiate tube feeding DVT/GI prophylaxis Discussed with RN and RT Critical care time 35 minutes RECOMMENDATIONS: 1. Continue present assist control mode and follow ABGs and make necessary adjustments. 2. The patient is status post diuresis. We will follow chest x-ray. 3. Monitor renal function while on diuresis. 4. Continue empiric antibiotic. 5. Rule out COVID viral pneumonia. 6. Continue heparin per protocol for non-STEMI. 7. Continue sedation. 8. Follow all cultures. 9. Discussed with RN, chart reviewed, imaging studies reviewed. Total critical care time 35 minutes. We will follow along with you. JONES FISHMAN MD Apr 27, 2021 10:51
[2021-04-27] MEDS ORDERED: LIDOCAINE WITH 8.4% SOD BICARB 3 ML DISP.SYRIN. ONE (10:57)
[2021-04-27] MEDS ORDERED: LIDOCAINE WITH 8.4% SOD BICARB 3 ML DISP.SYRIN. INJ ONE (11:15)
--- NOTE | 2021-04-27 11:38 | RAD ---
XR CHEST 1V History: Reason: s/p central line placememt / Spl. Instructions: / History: Comparison: April 25, 2021 Findings: Interval placement right IJ central line with tip projecting over the cavoatrial junction. No pneumot horax. Diffuse interstitial and alveolar opacities, unchanged. Costophrenic angles not well character ized on the current examination. Small left pleural effusion, unchanged. Unchanged enlarged cardiac s ize. Stable endotracheal tube and enteric tube. Impression: 1. Interval placement right IJ central line. No pneumothorax. 2. Diffuse interstitial and alveolar opacities, unchanged. Electronically signed by: Ahsan Sharma DO (04/27/2021 11:35 AM) [id number]
--- NOTE | 2021-04-27 11:45 | PDOC ---
BRIEF OPERATIVE NOTE Date: Apr 27, 2021 Pre-Op Diagnosis ARF Post-Op Diagnosis COVID-19, ARF Procedure Performed Nontunneled HD catheter placement Surgeon Britni EBL none Anesthesia Type: Local Specimens Obtained none Findings none Complications none Additional Remarks Do no use catheter until xcr reviewed and order to use is placed BETTYE JUAREZ MD Apr 27, 2021 11:45
[2021-04-27] MEDS ORDERED: AMIODARONE HCL 200 MG TABLET. PO SCH (12:00)
--- NOTE | 2021-04-27 12:34 | RAD ---
XR CHEST 1V History: Reason: post dialysis line placement / Spl. Instructions: / History: Comparison: April 27, 2021 Findings: Interval placement right IJ central line with tip projecting over the right atrium. Unchanged additio nal right IJ central line. Stable endotracheal tube and enteric tube. Diffuse interstitial and patchy opacities, similar compared to prior. Small bilateral pleural effusions, unchanged. Unchanged enlarg ed cardiac size. No pneumothorax. Impression: 1. Interval placement of additional right IJ central line. No pneumothorax. 2. Diffuse interstitial and patchy opacities, unchanged. 3. Small bilateral pleural effusions, unchanged. Electronically signed by: Ahsan Sharma DO (04/27/2021 12:31 PM) [id number]
--- NOTE | 2021-04-27 14:08 | PDOC4 ---
IR NOTE: 04/27/21 1407 Right neck trialysis catheter is OK to use. BETTYE JUAREZ MD Apr 27, 2021 14:08
[2021-04-27] MEDS: HEPARIN 25,000UTS/250ML PREMIX 250 ML IV PRN (15:25)
[2021-04-27] MEDS: REMDESIVIR 100mg in NORMAL SALINE 250ML X 4 DAYS IV SCH (17:35)
--- NOTE | 2021-04-27 17:37 | RAD ---
Procedure: US GUIDE VASCULAR ACCESS, IR CENTRAL VENOUS CATH INS > 5YRS Clinical Indication: ILDA Anesthesia: Local anesthesia only. Continuous cardiopulmonary monitoring was performed by independent qualified nursing personnel. Complications: None Consent: The procedure was explained in its entirety to the patient or the patients designated repre sentative by a member of the treatment team, including a discussion of the risks, benefits and common ly accepted alternatives to the procedure, as well as the expected consequences of no therapy whatsoe alonzo. Discussion of the risks included, but was not limited to, those that are most frequent and those that are rare but possibly severe or life-threatening, as well as the possibility of unforeseen comp lications. All questions were answered and informed consent was obtained. Sterility: All elements of maximal sterile barrier technique including the use of a cap, mask, steril e gown, sterile gloves, large sterile sheet, appropriate hand hygiene, and 2% chlorhexidine for cutan eous antisepsis (or acceptable alternative antiseptic per current guidelines) were followed for this procedure. Patient was placed in the supine position. The the bilateral groins were prepped and draped in approp riate sterile fashion. A timeout was performed. Ultrasound was used to evaluate the right neck which revealed patency and compressibility of the righ t internal jugular vein. A 21G micro-puncture needle was used to jd access to this vein under ultra sound guidance. A hard copy ultrasound image was obtained and stored. The needle was exchanged over t he wire for a 4F co-axial dilator. The inner portions of the dilator and .018 wire were exchanged for a .035 wire. The ectopy was observed. The tract was sequentially dilated and a [address] was placed. The catheter flushed and aspirated freely. The catheter was sutured to the patient's skin and a sterile CHG dressing was placed over top. Impression: Ultrasound-guided Trialysis catheter placement via the right IJ, 20 cm in length. Plan: Follow-up chest x-ray verify catheter placement. Catheter is ready to use. Electronically signed by: Saul Novak (04/27/2021 5:34 PM) [id number]
--- NOTE | 2021-04-27 20:34 | RAD ---
EXAM: RENAL ULTRASOUND CLINICAL HISTORY: Acute kidney injury on CKD, Afib, Covid pneumonia / COMPARISON: CT from April 16 TECHNIQUE: Ultrasound examination of the bilateral kidneys and urinary bladder was performed. FINDINGS: Left kidney is 12.5 cm in length without a mass or hydronephrosis. There is a 2.2 cm cyst in the left kidney as well as a 3.5 cm cyst. Cysts are unchanged from the recent CT in no further follow-up is w arranted. There is no solid left renal mass. Patient has a Nieves. The bladder was empty and poorly vi sualized. Right kidney was 9 cm in length without a mass or hydronephrosis. IMPRESSION: No hydronephrosis noted in the kidneys. Electronically signed by: David Henry MD (04/27/2021 8:32 PM) [facility]
--- NOTE | 2021-04-27 20:37 | NUR ---
patient brother called states family has decided to make patient a no code. I asked if he was DPOA. He is not. His granddaughter is. I explained that she needs to call and inform us. He states he will have her call
[2021-04-27] MEDS: ATORVASTATIN CALCIUM 40 MG TABLET. PO SCH (21:00)
[2021-04-27] MEDS: INSULIN GLARGINE SYRINGE. SQ SCH (21:00)
[2021-04-27] MEDS: MONTELUKAST SODIUM 10 MG TABLET. PO SCH (21:00)
[2021-04-28] VITALS (23 sets, daily range): BP systolic 126–176; BP diastolic 55–77
[2021-04-28] MEDS: MIDAZOLAM 100mg/100ml NS BAG 100 ML IV PRN ×2 (03:28→20:52)
[2021-04-28] MEDS: INSULIN LISPRO 300 UNITS/3 ML VIAL. SQ SCH ×4 (06:00→16:58)
[2021-04-28] MEDS: METOPROLOL IV PUSH 5 MG/5 ML VIAL. IVP SCH ×3 (06:11→16:42)
[2021-04-28 06:34] LABS: HEMATOCRIT 27.8 % (39.0-53.0); HEMOGLOBIN 8.8 g/dL (13.0-17.5); RED BLOOD COUNT 3.37 x10^6/uL (4.30-5.70); RED CELL DISTRIBUTION WIDTH 15.6 % (11.5-14.5); WHITE BLOOD COUNT 23.3 x10^3/uL (4.0-11.0)
[2021-04-28 06:59] LABS: ALBUMIN 1.5 g/dL (3.4-5.0); ALBUMIN/GLOBULIN RATIO 0.4 (1.0-1.7); CALCIUM 7.4 mg/dL (8.5-10.1); CREATININE 4.4 mg/dL (0.7-1.3); POTASSIUM 3.5 mmol/L (3.5-5.1); TOTAL BILIRUBIN 0.4 mg/dL (0.2-1.0); TOTAL PROTEIN 5.2 g/dL (6.4-8.2)
[2021-04-28] MEDS: ASPIRIN ENTERIC COATED 81 MG TABLET.DR. PO SCH (08:01)
[2021-04-28] MEDS: PANTOPRAZOLE IV PUSH 40 MG VIAL. IVP SCH (08:02)
[2021-04-28] MEDS: AMIODARONE HCL 200 MG TABLET. PO SCH (08:02)
[2021-04-28] MEDS: DEXAMETHASONE SOD PHOS 4 MG/ML VIAL IVP SCH (08:03)
[2021-04-28] MEDS: CEFEPIME HCL IV Push 1 GM VIAL. IVP SCH (08:03)
--- NOTE | 2021-04-28 08:36 | PDOC ---
[employer] PROGRESS NOTE Date of Service DOS: DATE: 04/28/21 TIME: 08:10 Chief Complaint Chief Complaint Acute respiratory failure with hypoxia - appears secondary to pulmonary edema vs pneumonia. Will diurese with IV Lasix and cover for HCAP with cefepime x1. Check procalcitonin follow-up blood cultures. COVID-19 pneumonia Pulmonology consulted for assistance in vent management. NSTEMI - possibly demand ischemia due to hypoxia, will trend troponins, consult cardiology New A. fib SIRS - likely sepsis from HCAP, treating with cefepime, given clear fluid overload will not give IVF. Trend WBC, f/u blood cultures. Hypertensive urgency - improved with intubation and sedation Hyperlipidemia - on statin CKD - appears currently at baseline Diabetes, II - sliding scale H/o bilateral subclavian stenosis s/p left subclavian sent placement complicated by retroperitoneal hematoma s/p evacuation in 08/2015. Marijuana use - will debt management counselor on any smoking with respiratory illness when awake Severe protein calorie malnutrition - his brother notes the patient has "given up" FEN - NPO PPX - heparin FULL CODE Dispo - inpatient History of Present Illness History of Present Illness Mr Cunha is a 75 yo male w/ PMHx CAD, HTN, Hyperlipidemia, subclavian steel syndrome, subclavian stenosis s/p left subclavian sent placement complicated by retroperitoneal hematoma s/p evacuation in 08/2015), asthma, BART, CKD, DM2 who presented from home with home health care noted that he was short of breath and valverde with O2 saturations less than 89% as low as 84% not improved with nasal cannulated oxygen placed on CPAP and brought to ED for further care. He was just discharged from the hospital a week ago on April 19, 2021 for abdominal pain and was going for further cardiac testing with outpatient stress testing scheduled on May 28, 2021. Had echocardiogram April 17, 2021 with normal-appearing EF with moderate concentric LVH no significant valvular abnormalities. WBC 20, Hb 10.7, platelets 268, NA 140, K3.8, BUN 21, CR 2.9, glucose 162, albumin 3, troponin I 1.372, NT proBNP 33,318. EKG appears sinus tachycardia rate of 105 bpm with multiple PACs small ST depressions in lead II and V5. TWI in V6. Chest radiograph with diffuse interstitial and alveolar opacities and ET tube 5.8 cm above the leilani. Due to worsening respiratory status ED physician elected to intubate patient. Seen postintubation. Blood pressure little low after propofol bolus, but improved. Significant white frothy sputum per ET tube. Admitted to ICU for further care 04/28/2021: Afebrile. FiO2 50%, PEEP 5. Nontunneled HD catheter placed yesterday due to worsening kidney function; eGFR 16 (CKD4). Chest x-ray showed unchanged interstitial opacities. Continue empiric antibiotics, steroids, and remdesivir. Continue heparin infusion, and continue to follow cardiology recommendations on new diagnosis of A. fib. Critical care time 30 minutes reviewing chart, review labs, review imaging, discussion with RN. 04/27/2021: Afebrile. On vent with FiO2 50%, PEEP 5. Troponin 2.8 yesterday; probable type II, demand ischemia. New onset A. fib. Continue heparin drip and as needed digoxin, per cardiology. Continue treatment with remdesivir, steroids, and prophylactic antibiotics. CBG 323 this morning; will add basal insulin. Critical care 30 minutes spent reviewing labs, reviewing imaging, reviewing charts, and discussion with RN. 04/26/2021: COVID-19 positive. Febrile overnight that was managed with cooling blankets. On vent with FiO2 50%, PEEP 5. Per cardiology, elevated troponins likely secondary to demand ischemia; continue heparin drip per cardiology. Maintain fluid balance and avoid nephrotoxins. Continue treatment with r emdesivir, steroids, and prophylactic antibiotics. 30 minutes critical care time spent reviewing charts, reviewing labs, reviewing imaging, and discussion with RN. 04/25/2021: On vent FiO2 50, PEEP 5. Febrile, T-max 103.3. Patient was initiated on cooling blankets. Procalcitonin 0.13. Continue coverage for hospital-acquired pneumonia with cefepime. MRSA PCR pending. Critical care time 30 minutes spent reviewing charts, reviewing labs, review of imaging, discussion with RN. Vitals/I&O Vitals/I&O: Vital Signs Date Time Temp Pulse Resp B/P (MAP) Pulse Ox O2 Delivery O2 Flow Rate FiO2 04/28/21 08:02 66 150/69 04/28/21 07:00 20 97 Ventilator 04/28/21 04:00 98.4 98.4 I & O 0 04/27/21 04/27/21 04/28/21 15:00 23:00 07:00 Intake Total 100 ml 1625 ml 911 ml Output Total 300 ml 225 ml 180 ml Balance -200 ml 1400 ml 731 ml Physical Exam General: Other (Intubated sedated) Heart: Other (Tachycardic) Lungs: Crackles Abdomen: Soft, Other (obese) Extremities: Other (trace LE edema ) Skin: No rashes, No breakdown, No significant lesion Labs Labs: Laboratory Tests Test 04/27/21 08:49 04/27/21 12:16 04/27/21 16:59 04/27/21 19:00 O2 Saturation 95 % (92-99) Arterial Blood pH 7.35 (7.35-7.45) Arterial Blood pCO2 at Patient Temp 38 mmHg (35-46) Arterial Blood pO2 at Patient Temp 86 mmHg (65-108) Arterial Blood HCO3 20 mmol/L (21-28) Arterial Blood Base Excess -5 mmol/L (-3-3) FiO2 50% Glucose (Fingerstick) 259 mg/dL (70-99) 301 mg/dL (70-99) Heparin Anti-Xa Act, Unfractionated 0.64 IU/mL (0.30-0.70) Test 04/27/21 21:04 04/28/21 00:35 04/28/21 00:39 04/28/21 06:10 Glucose (Fingerstick) 253 mg/dL (70-99) 231 mg/dL (70-99) Heparin Anti-Xa Act, Unfractionated 0.55 IU/mL (0.30-0.70) 0.51 IU/mL (0.30-0.70) White Blood Count 23.3 x10^3/uL (4.0-11.0) Red Blood Count 3.37 x10^6/uL (4.30-5.70) Hemoglobin 8.8 g/dL (13.0-17.5) Hematocrit 27.8 % (39.0-53.0) Mean Corpuscular Volume 82 fL (79-100) Mean Corpuscular Hemoglobin 26 pg (25-35) Mean Corpuscular Hemoglobin Concent 32 g/dL (31-37) Red Cell Distribution Width 15.6 % (11.5-14.5) Platelet Count 204 x10^3/uL (140-400) Sodium Level 137 mmol/L (136-145) Potassium Level 3.5 mmol/L (3.5-5.1) Chloride Level 103 mmol/L (98-107) Carbon Dioxide Level 25 mmol/L (21-32) Anion Gap 9 (6-14) Blood Urea Nitrogen 75 mg/dL (8-26) Creatinine 4.4 mg/dL (0.7-1.3) Estimated GFR (Cockcroft-Gault) 16.0 BUN/Creatinine Ratio 17 (6-20) Glucose Level 216 mg/dL (70-99) Calcium Level 7.4 mg/dL (8.5-10.1) Total Bilirubin 0.4 mg/dL (0.2-1.0) Aspartate Amino Transf (AST/SGOT) 35 U/L (15-37) Alanine Aminotransferase (ALT/SGPT) 19 U/L (16-63) Alkaline Phosphatase 39 U/L (46-116) Total Protein 5.2 g/dL (6.4-8.2) Albumin 1.5 g/dL (3.4-5.0) Albumin/Globulin Ratio 0.4 (1.0-1.7) Test 04/28/21 06:17 Glucose (Fingerstick) 201 mg/dL (70-99) Assessment and Plan Assessmemt and Plan Problems Medical Problems: (1) Elevated troponin Status: Acute (2) Person under investigation for COVID-19 Status: Acute (3) Pulmonary edema Status: Acute Comment Review of Relevant I have reviewed the following items juanita (where applicable) has been applied. Medications: Current Medications Medications (Trade) Dose Ordered Sig/Jodie Route PRN Reason Start Time Stop Time Status Last Admin Dose Admin Insulin Glargine (Lantus Syringe) 25 unit QHS SQ 04/27/21 21:00 04/27/21 21:00 Cefepime HCl (Maxipime) 1 gm Q24H IVP 04/28/21 09:30 04/28/21 08:03 Sodium Bicarbonate (Sodium Bicarb Adult 8.4% Syr) 50 meq 1X ONCE IV 04/27/21 09:45 04/27/21 09:46 DC 04/27/21 09:50 Lidocaine HCl (Buffered Lidocaine 1%) 3 ml 1X ONCE INJ 04/27/21 11:15 04/27/21 11:16 DC 04/27/21 11:15 Amiodarone HCl (Cordarone) 200 mg DAILY PO 04/28/21 09:00 04/28/21 08:02 Justifications for Admission General Conditions Altered mental status?: Yes Justification of admission: Patient has tachycardia (> 100 beats per minute) or hypotension (SBP < 90 mm Hg) leading to inadequate systemic perfusion as indicated by severe/persistent altered mental status. Other Justification ILDA SARAH BETH CARRASCO MD Apr 28, 2021 08:36
[2021-04-28 09:49] LABS: BASE EXCESS ABG -5 mmol/L (-3-3); HCO3 ABG 21 mmol/L (21-28); PCO2 ABG 37 mmHg (35-46); PO2 ABG 77 mmHg (65-108); SAT O2 ABG 94 % (92-99)
--- NOTE | 2021-04-28 10:55 | PDOC ---
PULMONARY PROGRESS NOTES DATE: 04/28/21 TIME: 10:54 Subjective Patient is resting on mechanical ventilation assist control mode 50% and a PEEP of 5 Worsening renal function COVID-19 positive Sedated with propofol and fentanyl, remains on heparin drip Vitals Vital Signs Date Time Temp Pulse Resp B/P (MAP) Pulse Ox O2 Delivery O2 Flow Rate FiO2 04/28/21 09:19 97 Ventilator 04/28/21 08:02 66 150/69 04/28/21 07:00 20 04/28/21 04:00 98.4 98.4 Comments Visual exam done due to COVID-19. Intubated and sedated No paradoxical breathing. Lungs: Crackles Labs Laboratory Tests Test 04/26/21 11:00 04/26/21 11:04 04/27/21 00:08 04/27/21 05:42 White Blood Count 11.6 x10^3/uL (4.0-11.0) Red Blood Count 3.51 x10^6/uL (4.30-5.70) Hemoglobin 9.3 g/dL (13.0-17.5) Hematocrit 28.8 % (39.0-53.0) Mean Corpuscular Volume 82 fL (79-100) Mean Corpuscular Hemoglobin 27 pg (25-35) Mean Corpuscular Hemoglobin Concent 32 g/dL (31-37) Red Cell Distribution Width 15.8 % (11.5-14.5) Platelet Count 207 x10^3/uL (140-400) Neutrophils (%) (Auto) 82 % (31-73) Lymphocytes (%) (Auto) 10 % (24-48) Monocytes (%) (Auto) 8 % (0-9) Eosinophils (%) (Auto) 0 % (0-3) Basophils (%) (Auto) 0 % (0-3) Neutrophils # (Auto) 9.5 x10^3/uL (1.8-7.7) Lymphocytes # (Auto) 1.2 x10^3/uL (1.0-4.8) Monocytes # (Auto) 0.9 x10^3/uL (0.0-1.1) Eosinophils # (Auto) 0.0 x10^3/uL (0.0-0.7) Basophils # (Auto) 0.0 x10^3/uL (0.0-0.2) Heparin Anti-Xa Act, Unfractionated 0.43 IU/mL (0.30-0.70) Magnesium Level 2.3 mg/dL (1.8-2.4) Troponin I Quantitative 2.804 ng/mL (0.000-0.055) Glucose (Fingerstick) 149 mg/dL (70-99) 323 mg/dL (70-99) 291 mg/dL (70-99) Test 04/27/21 06:55 04/27/21 08:49 04/27/21 12:16 04/27/21 16:59 White Blood Count 19.4 x10^3/uL (4.0-11.0) Red Blood Count 3.70 x10^6/uL (4.30-5.70) Hemoglobin 9.8 g/dL (13.0-17.5) Hematocrit 30.9 % (39.0-53.0) Mean Corpuscular Volume 84 fL (79-100) Mean Corpuscular Hemoglobin 27 pg (25-35) Mean Corpuscular Hemoglobin Concent 32 g/dL (31-37) Red Cell Distribution Width 15.7 % (11.5-14.5) Platelet Count 212 x10^3/uL (140-400) Neutrophils (%) (Auto) 89 % (31-73) Lymphocytes (%) (Auto) 6 % (24-48) Monocytes (%) (Auto) 5 % (0-9) Eosinophils (%) (Auto) 0 % (0-3) Basophils (%) (Auto) 0 % (0-3) Neutrophils # (Auto) 17.3 x10^3/uL (1.8-7.7) Lymphocytes # (Auto) 1.1 x10^3/uL (1.0-4.8) Monocytes # (Auto) 0.9 x10^3/uL (0.0-1.1) Eosinophils # (Auto) 0.0 x10^3/uL (0.0-0.7) Basophils # (Auto) 0.1 x10^3/uL (0.0-0.2) Heparin Anti-Xa Act, Unfractionated 0.25 IU/mL (0.30-0.70) Sodium Level 138 mmol/L (136-145) Potassium Level 3.9 mmol/L (3.5-5.1) Chloride Level 102 mmol/L (98-107) Carbon Dioxide Level 22 mmol/L (21-32) Anion Gap 14 (6-14) Blood Urea Nitrogen 60 mg/dL (8-26) Creatinine 4.0 mg/dL (0.7-1.3) Estimated GFR (Cockcroft-Gault) 17.8 BUN/Creatinine Ratio 15 (6-20) Glucose Level 311 mg/dL (70-99) Calcium Level 7.4 mg/dL (8.5-10.1) Total Bilirubin 0.5 mg/dL (0.2-1.0) Aspartate Amino Transf (AST/SGOT) 61 U/L (15-37) Alanine Aminotransferase (ALT/SGPT) 30 U/L (16-63) Alkaline Phosphatase 37 U/L (46-116) Total Protein 4.8 g/dL (6.4-8.2) Albumin 1.8 g/dL (3.4-5.0) Albumin/Globulin Ratio 0.6 (1.0-1.7) O2 Saturation 95 % (92-99) Arterial Blood pH 7.35 (7.35-7.45) Arterial Blood pCO2 at Patient Temp 38 mmHg (35-46) Arterial Blood pO2 at Patient Temp 86 mmHg (65-108) Arterial Blood HCO3 20 mmol/L (21-28) Arterial Blood Base Excess -5 mmol/L (-3-3) FiO2 50% Glucose (Fingerstick) 259 mg/dL (70-99) 301 mg/dL (70-99) Test 04/27/21 19:00 04/27/21 21:04 04/28/21 00:35 04/28/21 00:39 Heparin Anti-Xa Act, Unfractionated 0.64 IU/mL (0.30-0.70) 0.55 IU/mL (0.30-0.70) Glucose (Fingerstick) 253 mg/dL (70-99) 231 mg/dL (70-99) Test 04/28/21 06:10 04/28/21 06:17 White Blood Count 23.3 x10^3/uL (4.0-11.0) Red Blood Count 3.37 x10^6/uL (4.30-5.70) Hemoglobin 8.8 g/dL (13.0-17.5) Hematocrit 27.8 % (39.0-53.0) Mean Corpuscular Volume 82 fL (79-100) Mean Corpuscular Hemoglobin 26 pg (25-35) Mean Corpuscular Hemoglobin Concent 32 g/dL (31-37) Red Cell Distribution Width 15.6 % (11.5-14.5) Platelet Count 204 x10^3/uL (140-400) Heparin Anti-Xa Act, Unfractionated 0.51 IU/mL (0.30-0.70) Sodium Level 137 mmol/L (136-145) Potassium Level 3.5 mmol/L (3.5-5.1) Chloride Level 103 mmol/L (98-107) Carbon Dioxide Level 25 mmol/L (21-32) Anion Gap 9 (6-14) Blood Urea Nitrogen 75 mg/dL (8-26) Creatinine 4.4 mg/dL (0.7-1.3) Estimated GFR (Cockcroft-Gault) 16.0 BUN/Creatinine Ratio 17 (6-20) Glucose Level 216 mg/dL (70-99) Calcium Level 7.4 mg/dL (8.5-10.1) Total Bilirubin 0.4 mg/dL (0.2-1.0) Aspartate Amino Transf (AST/SGOT) 35 U/L (15-37) Alanine Aminotransferase (ALT/SGPT) 19 U/L (16-63) Alkaline Phosphatase 39 U/L (46-116) Total Protein 5.2 g/dL (6.4-8.2) Albumin 1.5 g/dL (3.4-5.0) Albumin/Globulin Ratio 0.4 (1.0-1.7) Glucose (Fingerstick) 201 mg/dL (70-99) Laboratory Tests Test 04/27/21 12:16 04/27/21 16:59 04/27/21 19:00 04/27/21 21:04 Glucose (Fingerstick) 259 mg/dL (70-99) 301 mg/dL (70-99) 253 mg/dL (70-99) Heparin Anti-Xa Act, Unfractionated 0.64 IU/mL (0.30-0.70) Test 04/28/21 00:35 04/28/21 00:39 04/28/21 06:10 04/28/21 06:17 Heparin Anti-Xa Act, Unfractionated 0.55 IU/mL (0.30-0.70) 0.51 IU/mL (0.30-0.70) Glucose (Fingerstick) 231 mg/dL (70-99) 201 mg/dL (70-99) White Blood Count 23.3 x10^3/uL (4.0-11.0) Red Blood Count 3.37 x10^6/uL (4.30-5.70) Hemoglobin 8.8 g/dL (13.0-17.5) Hematocrit 27.8 % (39.0-53.0) Mean Corpuscular Volume 82 fL (79-100) Mean Corpuscular Hemoglobin 26 pg (25-35) Mean Corpuscular Hemoglobin Concent 32 g/dL (31-37) Red Cell Distribution Width 15.6 % (11.5-14.5) Platelet Count 204 x10^3/uL (140-400) Sodium Level 137 mmol/L (136-145) Potassium Level 3.5 mmol/L (3.5-5.1) Chloride Level 103 mmol/L (98-107) Carbon Dioxide Level 25 mmol/L (21-32) Anion Gap 9 (6-14) Blood Urea Nitrogen 75 mg/dL (8-26) Creatinine 4.4 mg/dL (0.7-1.3) Estimated GFR (Cockcroft-Gault) 16.0 BUN/Creatinine Ratio 17 (6-20) Glucose Level 216 mg/dL (70-99) Calcium Level 7.4 mg/dL (8.5-10.1) Total Bilirubin 0.4 mg/dL (0.2-1.0) Aspartate Amino Transf (AST/SGOT) 35 U/L (15-37) Alanine Aminotransferase (ALT/SGPT) 19 U/L (16-63) Alkaline Phosphatase 39 U/L (46-116) Total Protein 5.2 g/dL (6.4-8.2) Albumin 1.5 g/dL (3.4-5.0) Albumin/Globulin Ratio 0.4 (1.0-1.7) Medications Active Scripts Medications Dose Route/Sig Max Daily Dose Days Date Category Glyburide 2.5 Mg Tablet 1 Tab PO DAILY 14 04/19/21 Rx Polyethylene Glycol 3350 17 Gm Powd.pack 17 Gm PO DAILY 14 04/19/21 Rx Dok (Docusate Sodium) 100 Mg Capsule 100 Mg PO PRN DAILY PRN 30 04/19/21 Rx Bisacodyl 5 Mg Tablet.dr 5 Mg PO PRN DAILY PRN 14 04/19/21 Rx Acetaminophen 325 Mg Tablet 650 Mg PO PRN Q4HRS PRN 04/19/21 Rx Aspirin Ec (Aspirin) 81 Mg Tablet.dr 81 Mg PO [id number] 30 04/19/21 Rx Hydralazine Hcl 25 Mg Tablet 25 Mg PO QID 30 04/19/21 Rx Fenofibrate 54 Mg Tablet 1 Tab PO DAILY 04/17/21 Reported Potassium Chloride (Potassium Chloride) 20 Meq Tablet.er 20 Meq PO DAILY 04/17/21 Reported Coreg (Carvedilol) 12.5 Mg Tablet 37.5 Mg PO BIDWMEALS 04/17/21 Reported Rosuvastatin Calcium 40 Mg Tablet 40 Mg PO QHS 04/17/21 Reported Gabapentin (Gabapentin) 100 Mg Capsule 200 Mg PO BID 04/17/21 Reported Montelukast Sodium Tablet (Montelukast Sodium) 10 Mg Tablet 10 Mg PO HS 04/17/21 Reported Protonix (Pantoprazole Sodium) 20 Mg Tablet.dr 2 Tab PO DAILY 04/17/21 Reported Amlodipine Besylate 5 Mg Tablet 5 Mg PO DAILY 04/17/21 Reported Furosemide 40 Mg Tablet 1 Tab PO DAILY 04/17/21 Reported Proair Hfa Inhaler (Albuterol Sulfate) 8.5 Gm Hfa.aer.ad 2 Puff IH PRN Q4-6HRS PRN 04/16/21 Reported Advair 100-50 Diskus (Fluticasone/Salmeterol) 1 Each Disk.w.dev 1 Puff IH BID 04/16/21 Reported Comments Chest x-ray reviewed 04/27. Worsening CHF Impression . IMPRESSION: 1. Acute hypoxic respiratory failure secondary to bilateral diffuse interstitial infiltrates. --COVID-[address] chest with bilateral diffuse interstitial infiltrates without any significant pleural effusion. Consistent with viral pneumonia. 3. History of recent hospitalization for abdominal pain. He was supposed to have cardiac testing and outpatient stress test. Now, he is hospitalized. Echo with normal ejection fraction and moderate left ventricular hypertrophy. 4. Abnormal troponin, likely [id number] elevation myocardial infarction. 5. History of tobacco use, details of length not available. 6. Chronic kidney disease. Worsening ILDA on CKD 7. Increasing metabolic acidosis secondary to ILDA. 8. Worsening CHF Plan . Updated 04/28/2021 Continue current vent support assist-control mode 26/500/50%/5 Once down to 40% FiO2, will try weaning sedation and assess mental status. ABG/chest x-ray reviewed, Continue empiric antibiotics with cefepime Continue steroids Continue remdesivir Follow cardiology recommendations continue heparin drip Follow nephrology recs . Dialysis with increased ultrafiltration today. COVID-19 positive Initiated on tube feeding Discussed with nephrology. DVT/GI prophylaxis Discussed with RN and RT Critical care time 30 minutes Updated 04/27/2021 Continue current vent support assist-control mode 26/500/50%/5 Once down to 40% FiO2, will try weaning sedation and assess mental status. ABG/chest x-ray reviewed, Continue empiric antibiotics with cefepime Continue steroids Continue remdesivir Follow cardiology recommendations continue heparin drip Follow nephrology recs COVID-19 positive Initiated on tube feeding Discussed with nephrology. Will be planning for hemodialysis catheter placement to correct metabolic acidosis as well as congestive heart failure DVT/GI prophylaxis Discussed with RN and RT Critical care time 30 minutes Updated 04/26/2021 Continue current vent support assist-control mode 26/500/50%/5 Once down to 40% FiO2, will try weaning sedation and assess mental status. ABG/chest x-ray reviewed, Continue empiric antibiotics with cefepime Continue steroids Continue remdesivir Follow cardiology recommendations continue heparin drip Follow nephrology recs COVID-19 positive Initiated on tube feeding DVT/GI prophylaxis Discussed with RN and RT Critical care time 30 minutes Updated 04/25/2021 Continue current vent support assist-control mode 26/500/50%/5 ABG/chest x-ray reviewed, reduce respiratory rate to 20 Continue empiric antibiotics with cefepime Continue steroids Continue remdesivir Follow cardiology recommendations continue heparin drip Follow nephrology recs COVID-19 positive Consult dietitian to initiate tube feeding DVT/GI prophylaxis Discussed with RN and RT Critical care time 35 minutes RECOMMENDATIONS: 1. Continue present assist control mode and follow ABGs and make necessary adjustments. 2. The patient is status post diuresis. We will follow chest x-ray. 3. Monitor renal function while on diuresis. 4. Continue empiric antibiotic. 5. Rule out COVID viral pneumonia. 6. Continue heparin per protocol for non-STEMI. 7. Continue sedation. 8. Follow all cultures. 9. Discussed with RN, chart reviewed, imaging studies reviewed. Total critical care time 35 minutes. We will follow along with you. JONES FISHMAN MD Apr 28, 2021 10:55
[2021-04-28] MEDS ORDERED: ALBUMIN HUMAN 25% 200 ML IV PRN (11:00)
[2021-04-28] MEDS ORDERED: 0.9 % SODIUM CHLORIDE 10 ML DISP.SYRIN. IV PRN ×2 (11:00)
[2021-04-28] MEDS ORDERED: DIALYSIS PATIENT. MC PRN ×2 (11:00)
[2021-04-28] MEDS ORDERED: IV NORMAL SALINE 1000ML BAG 1,000 ML IV PRN ×2 (11:00)
[2021-04-28 14:11] LABS: FIO2 ABG 50% VENT
--- NOTE | 2021-04-28 15:45 | PDOC ---
DATE OF SERVICE: DOS: DATE: 04/28/21 TIME: 15:42 SUBJECTIVE ROS Follow-up for acute kidney injury in the setting of COVID-19 pneumonitis and respiratory failure Patient remains on the vent at this time OBJECTIVE Vital Signs Vital Signs Date Time Temp Pulse Resp B/P (MAP) Pulse Ox O2 Delivery O2 Flow Rate FiO2 04/28/21 14:00 56 20 149/68 (95) 95 Ventilator 04/28/21 12:00 97.9 97.9 I & 0 Intake and Output 04/28/21 07:00 Intake Total 2636 ml Output Total 705 ml Balance 1931 ml Intake Oral 736 ml IV Total 283 ml Tube Feeding 828 ml Other 789 ml Output Urine Total 705 ml PHYSICAL EXAM Physical Exam GEN: Sedated intubated on the vent in no apparent distress Exam is limited due to COVID-19 isolation precautions. 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 See orders for changes. BONE & MINERAL: We will check phosphorus Severe hypoalbuminemia: Suspect catabolic state. May need IV albumin to maintain hemodynamics during dialysis. Continue tube feeds Discussed Plan of Care with family [] at bedside [] over the phone COMMENT/RELEVANT DATA Meds Current Medications Medications (Trade) Dose Ordered Sig/Jodie Start Time Stop Time Status Last Admin Dose Admin Acetaminophen (Tylenol) 650 mg PRN Q6HRS PRN 04/24/21 14:00 Cancel Albumin Human 200 ml @ 200 mls/hr 1X PRN PRN 04/28/21 11:00 04/28/21 16:59 Amiodarone HCl (Cordarone) 200 mg DAILY 04/28/21 09:00 04/28/21 08:02 200 MG Amiodarone HCl 150 mg/Dextrose 103 ml @ 618 mls/hr 1X ONCE 04/27/21 02:30 04/27/21 02:39 DC 04/27/21 02:30 618 MLS/HR Amiodarone HCl 450 mg/Dextrose 259 ml @ 33 mls/hr CONT PRN 04/27/21 02:30 Aspirin (Ecotrin) 81 mg [id number] 04/25/21 08:00 04/28/21 08:01 81 MG Atorvastatin Calcium (Lipitor) 80 mg QHS 04/24/21 21:00 04/27/21 21:00 80 MG Bisacodyl (Dulcolax Supp) 10 mg PRN DAILY PRN 04/24/21 14:00 Carvedilol (Coreg) 3.125 mg BIDWMEALS 04/24/21 17:00 04/25/21 15:42 DC 04/25/21 09:23 3.125 MG Cefepime HCl (Maxipime) 1 gm Q24H 04/28/21 09:30 04/28/21 08:03 1 GM Chlorhexidine Gluconate (Peridex) 15 ml BID 04/24/21 21:00 04/25/21 11:19 DC 04/24/21 20:49 15 ML Dexamethasone Sodium Phosphate (Decadron) 6 mg DAILY 04/25/21 17:00 04/28/21 08:03 6 MG Dextrose (Dextrose 50%-Water Syringe) 12.5 gm PRN Q15MIN PRN 04/24/21 16:30 04/24/21 23:43 12.5 GM Digoxin (Lanoxin) 250 mcg 1X ONCE 04/26/21 13:00 04/26/21 13:05 DC 04/26/21 15:02 250 MCG Etomidate (Amidate) 20 mg STK-MED ONCE 04/24/21 13:38 04/24/21 13:38 DC Fentanyl Citrate 30 ml @ 0 mls/hr CONT PRN 04/24/21 14:00 04/28/21 08:44 3.75 MLS/HR Fentanyl Citrate (Fentanyl 2ml Vial) 25 mcg PRN Q1HR PRN 04/24/21 14:00 04/24/21 16:39 25 MCG Furosemide (Lasix) 40 mg 1X ONCE 04/25/21 11:30 04/25/21 11:31 DC Heparin Sodium (Porcine) (Heparin Sodium) 3,200 unit PRN Q6HRS PRN 04/24/21 16:45 04/24/21 23:32 3,200 UNIT Heparin Sodium/ Dextrose 250 ml @ 0 mls/hr CONT PRN 04/24/21 16:45 04/27/21 15:25 11 MLS/HR Hydralazine HCl (Apresoline Inj) 10 mg PRN Q4HRS PRN 04/25/21 14:45 Info (Anti-Coagulation Monitoring By Pharmacy) 1 each PRN DAILY PRN 04/25/21 13:00 04/26/21 08:51 1 EACH Info (PHARMACY MONITORING -- do not chart) 1 each PRN DAILY PRN 04/28/21 11:00 Insulin Glargine (Lantus Syringe) 25 unit QHS 04/27/21 21:00 04/27/21 21:00 25 UNIT Insulin Human Lispro (HumaLOG) 0-9 UNITS Q6HRS 04/24/21 18:00 04/28/21 12:58 5 UNITS Lidocaine HCl (Buffered Lidocaine 1%) 3 ml 1X ONCE 04/27/21 11:15 04/27/21 11:16 DC 04/27/21 11:15 3 ML Metoprolol Tartrate (Lopressor Vial) 5 mg Q6HRS 04/25/21 18:00 04/28/21 12:44 5 MG Midazolam HCl 100 ml @ 0 mls/hr CONT PRN 04/26/21 07:00 04/28/21 03:28 6 MLS/HR Montelukast Sodium (Singulair) 10 mg HS 04/24/21 21:00 04/27/21 21:00 10 MG Norepinephrine Bitartrate 8 mg/ Dextrose 258 ml @ 25.349 mls/ hr CONT PRN 04/26/21 12:15 04/26/21 17:53 19.4 MLS/HR Ondansetron HCl (Zofran) 4 mg PRN Q6HRS PRN 04/24/21 14:00 Pantoprazole Sodium (PROTONIX VIAL for IV PUSH) 40 mg DAILYAC 04/26/21 09:30 04/28/21 08:02 40 MG Propofol 100 ml @ 0 mls/hr CONT PRN 04/24/21 15:30 04/26/21 05:25 15.2 MLS/HR Remdesivir 100 mg/ Sodium Chloride 230 ml @ 460 mls/hr Q24H 04/26/21 17:30 04/29/21 17:59 04/27/21 17:35 460 MLS/HR Remdesivir 200 mg/ Sodium Chloride 210 ml @ 210 mls/hr 1X ONCE 04/25/21 17:30 04/25/21 18:29 DC 04/25/21 17:09 210 MLS/HR Sodium Bicarbonate (Sodium Bicarb Adult 8.4% Syr) 50 meq 1X ONCE 04/27/21 09:45 04/27/21 09:46 DC 04/27/21 09:50 50 MEQ Sodium Chloride 1,000 ml @ 400 mls/hr Q2H30M PRN 04/28/21 11:00 04/28/21 22:59 Sodium Chloride (Normal Saline Flush) 10 ml 1X PRN PRN 04/28/21 11:00 04/29/21 10:59 Succinylcholine Chloride (Anectine) 200 mg STK-MED ONCE 04/24/21 13:38 04/24/21 13:38 DC Lab Laboratory Tests Test 04/27/21 16:59 04/27/21 19:00 04/27/21 21:04 04/28/21 00:35 Glucose (Fingerstick) 301 mg/dL (70-99) 253 mg/dL (70-99) Heparin Anti-Xa Act, Unfractionated 0.64 IU/mL (0.30-0.70) 0.55 IU/mL (0.30-0.70) Test 04/28/21 00:39 04/28/21 06:10 04/28/21 06:17 04/28/21 08:00 Glucose (Fingerstick) 231 mg/dL (70-99) 201 mg/dL (70-99) White Blood Count 23.3 x10^3/uL (4.0-11.0) Red Blood Count 3.37 x10^6/uL (4.30-5.70) Hemoglobin 8.8 g/dL (13.0-17.5) Hematocrit 27.8 % (39.0-53.0) Mean Corpuscular Volume 82 fL (79-100) Mean Corpuscular Hemoglobin 26 pg (25-35) Mean Corpuscular Hemoglobin Concent 32 g/dL (31-37) Red Cell Distribution Width 15.6 % (11.5-14.5) Platelet Count 204 x10^3/uL (140-400) Heparin Anti-Xa Act, Unfractionated 0.51 IU/mL (0.30-0.70) Sodium Level 137 mmol/L (136-145) Potassium Level 3.5 mmol/L (3.5-5.1) Chloride Level 103 mmol/L (98-107) Carbon Dioxide Level 25 mmol/L (21-32) Anion Gap 9 (6-14) Blood Urea Nitrogen 75 mg/dL (8-26) Creatinine 4.4 mg/dL (0.7-1.3) Estimated GFR (Cockcroft-Gault) 16.0 BUN/Creatinine Ratio 17 (6-20) Glucose Level 216 mg/dL (70-99) Calcium Level 7.4 mg/dL (8.5-10.1) Total Bilirubin 0.4 mg/dL (0.2-1.0) Aspartate Amino Transf (AST/SGOT) 35 U/L (15-37) Alanine Aminotransferase (ALT/SGPT) 19 U/L (16-63) Alkaline Phosphatase 39 U/L (46-116) Total Protein 5.2 g/dL (6.4-8.2) Albumin 1.5 g/dL (3.4-5.0) Albumin/Globulin Ratio 0.4 (1.0-1.7) O2 Saturation 94 % (92-99) Arterial Blood pH 7.36 (7.35-7.45) Arterial Blood pCO2 at Patient Temp 37 mmHg (35-46) Arterial Blood pO2 at Patient Temp 77 mmHg (65-108) Arterial Blood HCO3 21 mmol/L (21-28) Arterial Blood Base Excess -5 mmol/L (-3-3) FiO2 50% vent Test 04/28/21 12:56 Glucose (Fingerstick) 249 mg/dL (70-99) Results All relevant outside records, renal labs, imaging studies, telemetry/EKG's were reviewed. Justicifation of Admission Dx: Justifications for Admission: Justification of Admission Dx: Yes Aspiration Pneumonia: Hemodynamic Instability DEREK RIVERO MD Apr 28, 2021 15:45
[2021-04-28] MEDS: REMDESIVIR 100mg in NORMAL SALINE 250ML X 4 DAYS IV SCH (16:42)
[2021-04-28] MEDS: HEPARIN 25,000UTS/250ML PREMIX 250 ML IV PRN (16:45)
[2021-04-28 17:18] LABS: BILIRUBIN,URINE NEGATIVE (NEG); CLARITY,URINE CLEAR; COLOR,URINE YELLOW; PH,URINE 5.5 (<5.0-8.0)
[2021-04-28 17:19] LABS: BACTERIA,URINE 0 /HPF (0-FEW); NITRITE,URINE NEGATIVE (NEG); PROTEIN,URINE >=300 mg/dL (NEG-TRACE); RBC,URINE 0 /HPF (0-2); UROBILINOGEN,URINE 0.2 mg/dL (0.2 mg/dL); WBC,URINE 0 /HPF (0-4)
--- NOTE | 2021-04-28 17:32 | PDOC ---
PROGRESS NOTES Date of Service DATE: 04/28/21 TIME: 17:30 Subjective Subjective Patient seen and evaluated. Objective Objective Vital Signs Date Time Temp Pulse Resp B/P (MAP) Pulse Ox O2 Delivery O2 Flow Rate FiO2 04/28/21 17:00 64 20 159/67 (97) 95 Ventilator 04/28/21 16:00 97.5 97.5 Intake and Output 04/28/21 07:00 Intake Total 2636 ml Output Total 705 ml Balance 1931 ml Intake Oral 736 ml IV Total 283 ml Tube Feeding 828 ml Other 789 ml Output Urine Total 705 ml Physical Exam Physical Exam Visual examination secondary to Covid status. Assessment Assessment Problems Medical Problems: (1) Elevated troponin Status: Acute (2) Person under investigation for COVID-19 Status: Acute (3) Pulmonary edema Status: Acute Acute respiratory failure secondary to CHF, s/p intubation. COVID +. Continues on a vent. Followed by pulmonary and ID. Acute on chronic diastolic CHF. Hypertensive urgency; controlled, levophed as needed NSTEMI; trop highest 2.8. Echo last week with preserved LV systolic function with moderate LVH. Most probable type II, demand ischemia in setting of above, although underling ischemic cannot be ruled out Possible history of CAD; details unknown Hyperlipidemia; statin ILDA on CKD; per nephrology. Creatinine deteriorating at 4.4. Followed by the renal service. Diabetes, II New AFIB with RVR: currently SR Comment Review of Relevant I have reviewed the following items juanita (where applicable) has been applied. Labs Laboratory Tests Test 04/27/21 00:08 04/27/21 05:42 04/27/21 06:55 04/27/21 08:49 Glucose (Fingerstick) 323 mg/dL (70-99) 291 mg/dL (70-99) White Blood Count 19.4 x10^3/uL (4.0-11.0) Red Blood Count 3.70 x10^6/uL (4.30-5.70) Hemoglobin 9.8 g/dL (13.0-17.5) Hematocrit 30.9 % (39.0-53.0) Mean Corpuscular Volume 84 fL (79-100) Mean Corpuscular Hemoglobin 27 pg (25-35) Mean Corpuscular Hemoglobin Concent 32 g/dL (31-37) Red Cell Distribution Width 15.7 % (11.5-14.5) Platelet Count 212 x10^3/uL (140-400) Neutrophils (%) (Auto) 89 % (31-73) Lymphocytes (%) (Auto) 6 % (24-48) Monocytes (%) (Auto) 5 % (0-9) Eosinophils (%) (Auto) 0 % (0-3) Basophils (%) (Auto) 0 % (0-3) Neutrophils # (Auto) 17.3 x10^3/uL (1.8-7.7) Lymphocytes # (Auto) 1.1 x10^3/uL (1.0-4.8) Monocytes # (Auto) 0.9 x10^3/uL (0.0-1.1) Eosinophils # (Auto) 0.0 x10^3/uL (0.0-0.7) Basophils # (Auto) 0.1 x10^3/uL (0.0-0.2) Heparin Anti-Xa Act, Unfractionated 0.25 IU/mL (0.30-0.70) Sodium Level 138 mmol/L (136-145) Potassium Level 3.9 mmol/L (3.5-5.1) Chloride Level 102 mmol/L (98-107) Carbon Dioxide Level 22 mmol/L (21-32) Anion Gap 14 (6-14) Blood Urea Nitrogen 60 mg/dL (8-26) Creatinine 4.0 mg/dL (0.7-1.3) Estimated GFR (Cockcroft-Gault) 17.8 BUN/Creatinine Ratio 15 (6-20) Glucose Level 311 mg/dL (70-99) Calcium Level 7.4 mg/dL (8.5-10.1) Total Bilirubin 0.5 mg/dL (0.2-1.0) Aspartate Amino Transf (AST/SGOT) 61 U/L (15-37) Alanine Aminotransferase (ALT/SGPT) 30 U/L (16-63) Alkaline Phosphatase 37 U/L (46-116) Total Protein 4.8 g/dL (6.4-8.2) Albumin 1.8 g/dL (3.4-5.0) Albumin/Globulin Ratio 0.6 (1.0-1.7) O2 Saturation 95 % (92-99) Arterial Blood pH 7.35 (7.35-7.45) Arterial Blood pCO2 at Patient Temp 38 mmHg (35-46) Arterial Blood pO2 at Patient Temp 86 mmHg (65-108) Arterial Blood HCO3 20 mmol/L (21-28) Arterial Blood Base Excess -5 mmol/L (-3-3) FiO2 50% Test 04/27/21 12:16 04/27/21 16:59 04/27/21 19:00 04/27/21 21:04 Glucose (Fingerstick) 259 mg/dL (70-99) 301 mg/dL (70-99) 253 mg/dL (70-99) Heparin Anti-Xa Act, Unfractionated 0.64 IU/mL (0.30-0.70) Test 04/28/21 00:35 04/28/21 00:39 04/28/21 06:10 04/28/21 06:17 Heparin Anti-Xa Act, Unfractionated 0.55 IU/mL (0.30-0.70) 0.51 IU/mL (0.30-0.70) Glucose (Fingerstick) 231 mg/dL (70-99) 201 mg/dL (70-99) White Blood Count 23.3 x10^3/uL (4.0-11.0) Red Blood Count 3.37 x10^6/uL (4.30-5.70) Hemoglobin 8.8 g/dL (13.0-17.5) Hematocrit 27.8 % (39.0-53.0) Mean Corpuscular Volume 82 fL (79-100) Mean Corpuscular Hemoglobin 26 pg (25-35) Mean Corpuscular Hemoglobin Concent 32 g/dL (31-37) Red Cell Distribution Width 15.6 % (11.5-14.5) Platelet Count 204 x10^3/uL (140-400) Sodium Level 137 mmol/L (136-145) Potassium Level 3.5 mmol/L (3.5-5.1) Chloride Level 103 mmol/L (98-107) Carbon Dioxide Level 25 mmol/L (21-32) Anion Gap 9 (6-14) Blood Urea Nitrogen 75 mg/dL (8-26) Creatinine 4.4 mg/dL (0.7-1.3) Estimated GFR (Cockcroft-Gault) 16.0 BUN/Creatinine Ratio 17 (6-20) Glucose Level 216 mg/dL (70-99) Calcium Level 7.4 mg/dL (8.5-10.1) Total Bilirubin 0.4 mg/dL (0.2-1.0) Aspartate Amino Transf (AST/SGOT) 35 U/L (15-37) Alanine Aminotransferase (ALT/SGPT) 19 U/L (16-63) Alkaline Phosphatase 39 U/L (46-116) Total Protein 5.2 g/dL (6.4-8.2) Albumin 1.5 g/dL (3.4-5.0) Albumin/Globulin Ratio 0.4 (1.0-1.7) Test 04/28/21 08:00 04/28/21 12:56 04/28/21 15:50 04/28/21 16:54 O2 Saturation 94 % (92-99) Arterial Blood pH 7.36 (7.35-7.45) Arterial Blood pCO2 at Patient Temp 37 mmHg (35-46) Arterial Blood pO2 at Patient Temp 77 mmHg (65-108) Arterial Blood HCO3 21 mmol/L (21-28) Arterial Blood Base Excess -5 mmol/L (-3-3) FiO2 50% vent Glucose (Fingerstick) 249 mg/dL (70-99) 246 mg/dL (70-99) Hepatitis B Surface Antigen Nonreactive (Nonreactive) Test 04/28/21 17:00 Urine Collection Type Unknown Urine Color Yellow Urine Clarity Clear Urine pH 5.5 (<5.0-8.0) Urine Specific [place] 1.020 (1.000-1.030) Urine Protein >=300 mg/dL (NEG-TRACE) Urine Glucose (UA) 100 mg/dL (NEG) Urine Ketones (Stick) Negative mg/dL (NEG) Urine Blood Small (NEG) Urine Nitrite Negative (NEG) Urine Bilirubin Negative (NEG) Urine Urobilinogen Dipstick 0.2 mg/dL (0.2 mg/dL) Urine Leukocyte Esterase Negative (NEG) Urine RBC 0 /HPF (0-2) Urine WBC 0 /HPF (0-4) Urine Bacteria 0 /HPF (0-FEW) Laboratory Tests Test 04/27/21 19:00 04/27/21 21:04 04/28/21 00:35 04/28/21 00:39 Heparin Anti-Xa Act, Unfractionated 0.64 IU/mL (0.30-0.70) 0.55 IU/mL (0.30-0.70) Glucose (Fingerstick) 253 mg/dL (70-99) 231 mg/dL (70-99) Test 04/28/21 06:10 04/28/21 06:17 04/28/21 08:00 04/28/21 12:56 White Blood Count 23.3 x10^3/uL (4.0-11.0) Red Blood Count 3.37 x10^6/uL (4.30-5.70) Hemoglobin 8.8 g/dL (13.0-17.5) Hematocrit 27.8 % (39.0-53.0) Mean Corpuscular Volume 82 fL (79-100) Mean Corpuscular Hemoglobin 26 pg (25-35) Mean Corpuscular Hemoglobin Concent 32 g/dL (31-37) Red Cell Distribution Width 15.6 % (11.5-14.5) Platelet Count 204 x10^3/uL (140-400) Heparin Anti-Xa Act, Unfractionated 0.51 IU/mL (0.30-0.70) Sodium Level 137 mmol/L (136-145) Potassium Level 3.5 mmol/L (3.5-5.1) Chloride Level 103 mmol/L (98-107) Carbon Dioxide Level 25 mmol/L (21-32) Anion Gap 9 (6-14) Blood Urea Nitrogen 75 mg/dL (8-26) Creatinine 4.4 mg/dL (0.7-1.3) Estimated GFR (Cockcroft-Gault) 16.0 BUN/Creatinine Ratio 17 (6-20) Glucose Level 216 mg/dL (70-99) Calcium Level 7.4 mg/dL (8.5-10.1) Total Bilirubin 0.4 mg/dL (0.2-1.0) Aspartate Amino Transf (AST/SGOT) 35 U/L (15-37) Alanine Aminotransferase (ALT/SGPT) 19 U/L (16-63) Alkaline Phosphatase 39 U/L (46-116) Total Protein 5.2 g/dL (6.4-8.2) Albumin 1.5 g/dL (3.4-5.0) Albumin/Globulin Ratio 0.4 (1.0-1.7) Glucose (Fingerstick) 201 mg/dL (70-99) 249 mg/dL (70-99) O2 Saturation 94 % (92-99) Arterial Blood pH 7.36 (7.35-7.45) Arterial Blood pCO2 at Patient Temp 37 mmHg (35-46) Arterial Blood pO2 at Patient Temp 77 mmHg (65-108) Arterial Blood HCO3 21 mmol/L (21-28) Arterial Blood Base Excess -5 mmol/L (-3-3) FiO2 50% vent Test 04/28/21 15:50 04/28/21 16:54 04/28/21 17:00 Hepatitis B Surface Antigen Nonreactive (Nonreactive) Glucose (Fingerstick) 246 mg/dL (70-99) Urine Collection Type Unknown Urine Color Yellow Urine Clarity Clear Urine pH 5.5 (<5.0-8.0) Urine Specific [place] 1.020 (1.000-1.030) Urine Protein >=300 mg/dL (NEG-TRACE) Urine Glucose (UA) 100 mg/dL (NEG) Urine Ketones (Stick) Negative mg/dL (NEG) Urine Blood Small (NEG) Urine Nitrite Negative (NEG) Urine Bilirubin Negative (NEG) Urine Urobilinogen Dipstick 0.2 mg/dL (0.2 mg/dL) Urine Leukocyte Esterase Negative (NEG) Urine RBC 0 /HPF (0-2) Urine WBC 0 /HPF (0-4) Urine Bacteria 0 /HPF (0-FEW) Microbiology 04/24/21 Blood Culture - Preliminary, Resulted NO GROWTH AFTER 3 DAYS Medications Current Medications Propofol 100 ml @ As Directed STK-MED ONCE IV ; Start 04/24/21 at 12:36; Stop 04/24/21 at 12:36; Status DC Etomidate (Amidate) 20 mg STK-MED ONCE IV ; Start 04/24/21 at 13:38; Stop 04/24/21 at 13:38; Status DC Succinylcholine Chloride (Anectine) 200 mg STK-MED ONCE .ROUTE ; Start 04/24/21 at 13:38; Stop 04/24/21 at 13:38; Status DC Fentanyl Citrate (Fentanyl 2ml Vial) 50 mcg PRN Q1HR PRN IV PAIN; Start 04/24/21 at 14:00; Stop 04/24/21 at 14:14; Status DC Acetaminophen (Tylenol) 650 mg PRN Q6HRS PRN PO Headaches, Temp > 101.5' Last administered on 04/25/21at 17:31; Start 04/24/21 at 14:00 Ondansetron HCl (Zofran) 4 mg PRN Q6HRS PRN IVP NAUSEA/VOMITING; Start 04/24/21 at 14:00; Status Cancel Sodium Chloride (Normal Saline Flush) 3 ml QSHIFT PRN IV AFTER MEDS AND BLOOD DRAWS; Start 04/24/21 at 14:00 Fentanyl Citrate (Fentanyl 2ml Vial) 25 mcg PRN Q1HR PRN IV SEVERE PAIN 7-10; Start 04/24/21 at 14:00; Stop 04/24/21 at 14:14; Status DC Bisacodyl (Dulcolax Supp) 10 mg PRN DAILY PRN MS CONSTIPATION; Start 04/24/21 at 14:00 Fentanyl Citrate 30 ml @ 0 mls/hr CONT PRN IV SEE PROTOCOL; Start 04/24/21 at 14:00; Stop 04/24/21 at 14:12; Status DC Propofol 100 ml @ 0 mls/hr CONT PRN IV PER PROTOCOL Last administered on 04/24/21at 15:12; Start 04/24/21 at 14:00; Stop 04/24/21 at 15:19; Status DC Chlorhexidine Gluconate (Peridex) 15 ml BID MM Last administered on 04/24/21at 20:49; Start 04/24/21 at 21:00; Stop 04/25/21 at 11:19; Status DC Acetaminophen (Tylenol) 650 mg PRN Q6HRS PRN PO Headaches, Temp > 101.5'; Start 04/24/21 at 14:00; Status Cancel Ondansetron HCl (Zofran) 4 mg PRN Q6HRS PRN IVP NAUSEA/VOMITING; Start 04/24/21 at 14:00 Fentanyl Citrate (Fentanyl 2ml Vial) 25 mcg PRN Q1HR PRN IV SEVERE PAIN 7-10 Last administered on 04/24/21at 16:39; Start 04/24/21 at 14:00 Fentanyl Citrate 30 ml @ 0 mls/hr CONT PRN IV SEE PROTOCOL Last administered on 04/28/21at 16:46; Start 04/24/21 at 14:00 Aspirin (Ecotrin) 81 mg DAILYWBKFT PO Last administered on 04/28/21 08:01; Start 04/25/21 at 08:00 Carvedilol (Coreg) 37.5 mg BIDWMEALS PO ; Start 04/24/21 at 17:00; Stop 04/24/21 at 16:17; Status DC Montelukast Sodium (Singulair) 10 mg HS PO Last administered on 04/27/21at 21:00; Start 04/24/21 at 21:00 Atorvastatin Calcium (Lipitor) 80 mg QHS PO Last administered on 04/27/21at 21:00; Start 04/24/21 at 21:00 Heparin Sodium (Porcine) (Heparin Sodium) 5,000 unit Q8HRS SQ ; Start 04/24/21 at 22:00; Status Cancel Furosemide (Lasix) 40 mg 1X ONCE IVP Last administered on 04/24/21 16:45; Start 04/24/21 at 15:15; Stop 04/24/21 at 15:19; Status DC Propofol 100 ml @ 0 mls/hr CONT PRN IV PER PROTOCOL Last administered on 04/26/21at 05:25; Start 04/24/21 at 15:30 Carvedilol (Coreg) 3.125 mg BIDWMEALS PO Last administered on 04/25/21at 09:23; Start 04/24/21 at 17:00; Stop 04/25/21 at 15:42; Status DC Cefepime HCl (Maxipime) 2 gm 1X ONCE IVP Last administered on 04/24/21at 18:27; Start 04/24/21 at 16:30; Stop 04/24/21 at 16:31; Status DC Insulin Human Lispro (HumaLOG) 0-9 UNITS Q6HRS SQ Last administered on 04/28/21 16:58; Start 04/24/21 at 18:00 Dextrose (Dextrose 50%-Water Syringe) 12.5 gm PRN Q15MIN PRN IV SEE COMMENTS Last administered on 04/24/21at 23:43; Start 04/24/21 at 16:30 Heparin Sodium/ Dextrose 250 ml @ 0 mls/hr CONT PRN IV PER PROTOCOL Last administered on 04/28/21at 16:45; Start 04/24/21 at 16:45 Heparin Sodium (Porcine) (Heparin Sodium) 3,200 unit PRN Q6HRS PRN IV FOR UFH LEVEL LESS THAN 0.2 Last administered on 04/24/21at 23:32; Start 04/24/21 at 16:45 Cefepime HCl (Maxipime) 1 gm Q12HR IVP Last administered on 04/27/21 08:09; Start 04/25/21 at 09:00; Stop 04/27/21 at 09:17; Status DC Furosemide (Lasix) 40 mg 1X ONCE IVP ; Start 04/25/21 at 11:30; Stop 04/25/21 at 11:31; Status DC Metoprolol Tartrate (Lopressor Vial) 5 mg 1X ONCE IVP Last administered on 04/25/21at 11:27; Start 04/25/21 at 11:30; Stop 04/25/21 at 11:31; Status DC Info (Anti-Coagulation Monitoring By Pharmacy) 1 each PRN DAILY PRN MC PER PROTOCOL Last administered on 04/26/21at 08:51; Start 04/25/21 at 13:00 Digoxin (Lanoxin) 500 mcg 1X ONCE IV Last administered on 04/25/21 14:52; Start 04/25/21 at 14:45; Stop 04/25/21 at 14:46; Status DC Hydralazine HCl (Apresoline Inj) 10 mg PRN Q4HRS PRN IVP ELEVATED BP, SEE COMMENTS; Start 04/25/21 at 14:45 Metoprolol Tartrate (Lopressor Vial) 5 mg Q6HRS IVP Last administered on 04/28/21at 16:42; Start 04/25/21 at 18:00 Dexamethasone Sodium Phosphate (Decadron) 6 mg DAILY IVP Last administered on 04/28/21 08:03; Start 04/25/21 at 17:00 Remdesivir 200 mg/ Sodium Chloride 210 ml @ 210 mls/hr 1X ONCE IV Last administered on 04/25/21 17:09; Start 04/25/21 at 17:30; Stop 04/25/21 at 18:29; Status DC Remdesivir 100 mg/ Sodium Chloride 230 ml @ 460 mls/hr Q24H IV Last administered on 04/28/21at 16:42; Start 04/26/21 at 17:30; Stop 04/29/21 at 17:59 Midazolam HCl 100 ml @ 0 mls/hr CONT PRN IV SEE PROTOCOL Last administered on 04/28/21at 03:28; Start 04/26/21 at 07:00 Pantoprazole Sodium (PROTONIX VIAL for IV PUSH) 40 mg DAILYAC IVP Last administered on 04/28/21at 08:02; Start 04/26/21 at 09:30 Norepinephrine Bitartrate 8 mg/ Dextrose 258 ml @ 25.349 mls/ hr CONT PRN IV PER PROTOCOL Last administered on 04/26/21at 17:53; Start 04/26/21 at 12:15 Digoxin (Lanoxin) 250 mcg 1X ONCE IV Last administered on 04/26/21at 15:02; S tart 04/26/21 at 13:00; Stop 04/26/21 at 13:05; Status DC Amiodarone HCl 150 mg/Dextrose 103 ml @ 618 mls/hr 1X ONCE IV Last administered on 04/27/21at 02:30; Start 04/27/21 at 02:30; Stop 04/27/21 at 02:39; Status DC Amiodarone HCl 450 mg/Dextrose 259 ml @ 33 mls/hr CONT PRN IV SEE I/O RECORD; Start 04/27/21 at 02:30 Insulin Glargine (Lantus Syringe) 25 unit QHS SQ Last administered on 04/27/21at 21:00; Start 04/27/21 at 21:00 Cefepime HCl (Maxipime) 1 gm Q24H IVP Last administered on 04/28/21at 08:03; Start 04/28/21 at 09:30 Sodium Bicarbonate (Sodium Bicarb Adult 8.4% Syr) 50 meq 1X ONCE IV Last administered on 04/27/21at 09:50; Start 04/27/21 at 09:45; Stop 04/27/21 at 09:46; Status DC Lidocaine HCl (Buffered Lidocaine 1%) 3 ml STK-MED ONCE .ROUTE ; Start 04/27/21 at 10:57; Stop 04/27/21 at 10:58; Status DC Amiodarone HCl (Cordarone) 200 mg DAILY PO ; Start 04/27/21 at 12:00; Stop 04/27/21 at 12:29; Status DC Lidocaine HCl (Buffered Lidocaine 1%) 3 ml 1X ONCE INJ Last administered on 04/27/21at 11:15; Start 04/27/21 at 11:15; Stop 04/27/21 at 11:16; Status DC Amiodarone HCl (Cordarone) 200 mg DAILY PO Last administered on 04/28/21at 08:02; Start 04/28/21 at 09:00 Sodium Chloride 1,000 ml @ 1,000 mls/hr Q1H PRN IV hypotension; Start 04/28/21 at 11:00; Stop 04/28/21 at 16:59; Status DC Albumin Human 200 ml @ 200 mls/hr 1X PRN PRN IV Hypotension; Start 04/28/21 at 11:00; Stop 04/28/21 at 16:59; Status DC Sodium Chloride (Normal Saline Flush) 10 ml 1X PRN PRN IV AP catheter pack; Start 04/28/21 at 11:00; Stop 04/29/21 at 10:59 Sodium Chloride (Normal Saline Flush) 10 ml 1X PRN PRN IV CORRECTIONAL COOK catheter pack; Start 04/28/21 at 11:00; Stop 04/29/21 at 10:59 Sodium Chloride 1,000 ml @ 400 mls/hr Q2H30M PRN IV PATENCY; Start 04/28/21 at 11:00; Stop 04/28/21 at 22:59 Info (PHARMACY MONITORING -- do not chart) 1 each PRN DAILY PRN MC SEE COMMENTS; Start 04/28/21 at 11:00; Status UNV Info (PHARMACY MONITORING -- do not chart) 1 each PRN DAILY PRN MC SEE COMMENTS; Start 04/28/21 at 11:00 Active Scripts Active Glyburide 2.5 Mg Tablet 1 Tab PO DAILY 14 Days Polyethylene Glycol 3350 17 Gm Powd.pack 17 Gm PO DAILY 14 Days Dok (Docusate Sodium) 100 Mg Capsule 100 Mg PO PRN DAILY PRN 30 Days Bisacodyl 5 Mg Tablet. 5 Mg PO PRN DAILY PRN 14 Days Acetaminophen 325 Mg Tablet 650 Mg PO PRN Q4HRS PRN 14 Days Aspirin Ec (Aspirin) 81 Mg Tablet.dr 81 Mg PO DAILYWBKFT 30 Days Hydralazine Hcl 25 Mg Tablet 25 Mg PO QID 30 Days Reported Fenofibrate 54 Mg Tablet 1 Tab PO DAILY Potassium Chloride (Potassium Chloride) 20 Meq Tablet.er 20 Meq PO DAILY Coreg (Carvedilol) 12.5 Mg Tablet 37.5 Mg PO BIDWMEALS Rosuvastatin Calcium 40 Mg Tablet 40 Mg PO QHS Gabapentin (Gabapentin) 100 Mg Capsule 200 Mg PO BID Montelukast Sodium Tablet (Montelukast Sodium) 10 Mg Tablet 10 Mg PO HS Protonix (Pantoprazole Sodium) 20 Mg Tablet.dr 2 Tab PO DAILY Amlodipine Besylate 5 Mg Tablet 5 Mg PO DAILY Furosemide 40 Mg Tablet 1 Tab PO DAILY Proair Hfa Inhaler (Albuterol Sulfate) 8.5 Gm Hfa.aer.ad 2 Puff IH PRN Q4-6HRS PRN 21 Days Advair 100-50 Diskus (Fluticasone/Salmeterol) 1 Each Disk.w.dev 1 Puff IH BID Vitals/I & O Vital Sign - Last 24 Hours 04/27/21 04/27/21 04/27/21 04/27/21 17:50 18:00 19:00 20:00 Temp 97.9 97.9 Pulse 64 Resp 20 B/P (MAP) 139/65 (89) Pulse Ox 97 97 97 O2 Delivery Ventilator Ventilator Ventilator Mechanical Ventilator 04/27/21 04/27/21 04/27/21 04/27/21 20:00 20:16 21:00 22:00 Pulse 62 68 67 Resp 20 20 20 B/P (MAP) 161/62 (95) 150/70 (96) 150/73 (98) Pulse Ox 96 97 97 97 O2 Delivery Ventilator Ventilator Ventilator Ventilator 04/27/21 04/27/21 04/27/21 04/27/21 22:45 23:00 23:54 23:59 Temp 98.4 98.4 Pulse 74 74 65 Resp 20 20 B/P (MAP) 99/70 (80) 152/66 (94) 144/62 141/62 (88) Pulse Ox 97 98 O2 Delivery Ventilator Ventilator 04/27/21 04/28/21 04/28/21 04/28/21 23:59 00:00 00:34 01:00 Pulse 66 Resp 20 B/P (MAP) 141/67 (91) Pulse Ox 97 98 98 O2 Delivery Mechanical Ventilator Ventilator Ventilator 04/28/21 04/28/21 04/28/21 04/28/21 01:05 02:00 03:00 04:00 Pulse 55 59 Resp 20 20 B/P (MAP) 132/55 (80) 128/55 (79) Pulse Ox 98 97 98 97 O2 Delivery Ventilator Ventilator Ventilator 04/28/21 04/28/21 04/28/21 04/28/21 04:00 04:00 05:00 06:00 Temp 98.4 98.4 Pulse 61 56 62 Resp 20 20 20 B/P (MAP) 146/65 (92) 136/55 (82) 147/69 (95) Pulse Ox 97 97 97 O2 Delivery Ventilator Mechanical Ventilator Ventilator Ventilator 04/28/21 04/28/21 04/28/21 04/28/21 06:11 07:00 08:00 08:00 Temp 98.2 98.2 Pulse 56 70 64 Resp 20 20 B/P (MAP) 147/55 151/68 (95) 150/69 (96) Pulse Ox 97 97 O2 Delivery Ventilator Mechanical Ventilator Ventilator 04/28/21 04/28/21 04/28/21 04/28/21 08:02 08:44 09:00 09:19 Pulse 66 70 Resp 20 B/P (MAP) 150/69 156/72 (100) Pulse Ox 97 96 97 O2 Delivery Ventilator Ventilator Ventilator 04/28/21 04/28/21 04/28/21 04/28/21 10:00 10:15 11:00 11:29 Pulse 66 60 Resp 20 20 B/P (MAP) 147/63 (91) 142/64 (90) Pulse Ox 96 96 96 O2 Delivery Ventilator Ventilator Ventilator Ventilator 04/28/21 04/28/21 04/28/21 04/28/21 11:58 12:00 12:00 12:44 Temp 97.9 97.9 Pulse 62 62 Resp 20 B/P (MAP) 144/63 (90) 144/63 Pulse Ox 96 95 O2 Delivery Ventilator Ventilator Mechanical Ventilator 04/28/21 04/28/21 04/28/21 04/28/21 13:00 14:00 15:00 15:41 Pulse 62 56 62 Resp 20 20 20 B/P (MAP) 137/62 (87) 149/68 (95) 159/72 (101) Pulse Ox 95 95 95 96 O2 Delivery Ventilator Ventilator Ventilator Ventilator 04/28/21 04/28/21 04/28/21 04/28/21 16:00 16:42 16:46 17:00 Temp 97.5 97.5 Pulse 72 75 64 Resp 20 20 B/P (MAP) 171/73 (105) 171/73 159/67 (97) Pulse Ox 94 96 95 O2 Delivery Ventilator Ventilator Ventilator Intake and Output 04/27/21 04/27/21 04/28/21 15:00 23:00 07:00 Intake Total 100 ml 1625 ml 911 ml Output Total 300 ml 225 ml 180 ml Balance -200 ml 1400 ml 731 ml Justifications for Admission General Conditions Altered mental status?: Yes Justification of admission: Patient has tachycardia (> 100 beats per minute) or hypotension (SBP < 90 mm Hg) leading to inadequate systemic perfusion as indicated by severe/persistent altered mental status. Other Justification VIDAL MONTANA MD Apr 28, 2021 17:31
[2021-04-28] MEDS: MONTELUKAST SODIUM 10 MG TABLET. PO SCH (21:10)
[2021-04-28] MEDS: ATORVASTATIN CALCIUM 40 MG TABLET. PO SCH (21:10)
[2021-04-28] MEDS: INSULIN GLARGINE SYRINGE. SQ SCH (21:11)
[2021-04-29] VITALS (24 sets, daily range): BP systolic 117–204; BP diastolic 55–84
[2021-04-29] MEDS: METOPROLOL IV PUSH 5 MG/5 ML VIAL. IVP SCH ×5 (00:01→23:50)
[2021-04-29] MEDS: INSULIN LISPRO 300 UNITS/3 ML VIAL. SQ SCH ×4 (00:02→17:01)
--- NOTE | 2021-04-29 04:13 | NUR ---
Wound Care Wound Type/Assessment: Pt seen while assisting RN reposition pt, and noticed a large, intact blood blister on pt's R plantar foot. Reddish purple blister, periwound intact and clear. Treatment Recommendations/Plan: Skin prep to periwound, foam dressing for protection, change every 3-4 days. Education provided: to RN Offloading surface/device: ICU bed, float feet with pillows Recommended Referrals/Tests: n/a Discharge Recommendations for dressings: see treatment plan above, will continue to follow
[2021-04-29 06:17] LABS: HEMATOCRIT 26.9 % (39.0-53.0); HEMOGLOBIN 8.6 g/dL (13.0-17.5); RED BLOOD COUNT 3.27 x10^6/uL (4.30-5.70); RED CELL DISTRIBUTION WIDTH 15.9 % (11.5-14.5); WHITE BLOOD COUNT 20.4 x10^3/uL (4.0-11.0)
[2021-04-29] MEDS: ASPIRIN ENTERIC COATED 81 MG TABLET.DR. PO SCH (08:00)
--- NOTE | 2021-04-29 08:27 | PDOC ---
[employer] PROGRESS NOTE Date of Service DOS: DATE: 04/29/21 TIME: 08:21 Chief Complaint Chief Complaint Acute respiratory failure with hypoxia - appears secondary to pulmonary edema vs pneumonia. Will diurese with IV Lasix and cover for HCAP with cefepime x1. Check procalcitonin follow-up blood cultures. COVID-19 pneumonia Pulmonology consulted for assistance in vent management. NSTEMI - possibly demand ischemia due to hypoxia, will trend troponins, consult cardiology New A. fib SIRS - likely sepsis from HCAP, treating with cefepime, given clear fluid overload will not give IVF. Trend WBC, f/u blood cultures. Hypertensive urgency - improved with intubation and sedation Hyperlipidemia - on statin CKD - appears currently at baseline Diabetes, II - sliding scale H/o bilateral subclavian stenosis s/p left subclavian sent placement complicated by retroperitoneal hematoma s/p evacuation in 08/2015. Marijuana use - will licensed mental health counselor on any smoking with respiratory illness when awake Severe protein calorie malnutrition - his brother notes the patient has "given up" FEN - NPO PPX - heparin FULL CODE Dispo - inpatient History of Present Illness History of Present Illness Mr Cunha is a 75 yo male w/ PMHx CAD, HTN, Hyperlipidemia, subclavian steel syndrome, subclavian stenosis s/p left subclavian sent placement complicated by retroperitoneal hematoma s/p evacuation in 08/2015), asthma, BART, CKD, DM2 who presented from home with home health care noted that he was short of breath and valverde with O2 saturations less than 89% as low as 84% not improved with nasal cannulated oxygen placed on CPAP and brought to ED for further care. He was just discharged from the hospital a week ago on April 19, 2021 for abdominal pain and was going for further cardiac testing with outpatient stress testing scheduled on May 28, 2021. Had echocardiogram April 17, 2021 with normal-appearing EF with moderate concentric LVH no significant valvular abnormalities. WBC 20, Hb 10.7, platelets 268, NA 140, K3.8, BUN 21, CR 2.9, glucose 162, albumin 3, troponin I 1.372, NT proBNP 33,318. EKG appears sinus tachycardia rate of 105 bpm with multiple PACs small ST depressions in lead II and V5. TWI in V6. Chest radiograph with diffuse interstitial and alveolar opacities and ET tube 5.8 cm above the leilani. Due to worsening respiratory status ED physician elected to intubate patient. Seen postintubation. Blood pressure little low after propofol bolus, but improved. Significant white frothy sputum per ET tube. Admitted to ICU for further care 04/29/2021: Afebrile, remains on vent at FiO2 45%, PEEP 5. WBC 20.4. Hemodialysis per nephrology. We will continue treatment with empiric antibiotics, remdesivir, and steroids. Continue heparin infusion and supportive care. Critical care time 30 minutes reviewing chart, review labs, review imaging, discussion with RN. 04/28/2021: Afebrile. FiO2 50%, PEEP 5. Nontunneled HD catheter placed yesterday due to worsening kidney function; eGFR 16 (CKD4). Chest x-ray showed unchanged interstitial opacities. Continue empiric antibiotics, steroids, and remdesivir. Continue heparin infusion, and continue to follow cardiology recommendations on new diagnosis of A. fib. Critical care time 30 minutes reviewing chart, review labs, review imaging, discussion with RN. 04/27/2021: Afebrile. On vent with FiO2 50%, PEEP 5. Troponin 2.8 yesterday; probable type II, demand ischemia. New onset A. fib. Continue heparin drip and as needed digoxin, per cardiology. Continue treatment with remdesivir, steroids, and prophylactic antibiotics. CBG 323 this morning; will add basal insulin. Critical care 30 minutes spent reviewing labs, reviewing imaging, reviewing charts, and discussion with RN. 04/26/2021: COVID-19 positive. Febrile overnight that was managed with cooling blankets. On vent with FiO2 50%, PEEP 5. Per cardiology, elevated troponins likely secondary to demand ischemia; continue heparin drip per cardiology. Maintain fluid balance and avoid nephrotoxins. Continue treatment with remdesivir, steroids, and prophylactic antibiotics. 30 minutes critical care time spent reviewing charts, reviewing labs, reviewing imaging, and discussion with RN. 04/25/2021: On vent FiO2 50, PEEP 5. Febrile, T-max 103.3. Patient was initiated on cooling blankets. Procalcitonin 0.13. Continue coverage for hospital-acquired pneumonia with cefepime. MRSA PCR pending. Critical care time 30 minutes spent reviewing charts, reviewing labs, review of imaging, discussion with RN. Vitals/I&O Vitals/I&O: Vital Signs Date Time Temp Pulse Resp B/P (MAP) Pulse Ox O2 Delivery O2 Flow Rate FiO2 04/29/21 07:26 98.4 63 20 160/66 (97) 94 Ventilator 98.4 I & O 04/28/21 04/28/21 04/29/21 15:00 23:00 07:00 Intake Total 200 ml 1293 ml 442 ml Output Total 315 ml 430 ml 270 ml Balance -115 ml 863 ml 172 ml Physical Exam General: Other (Intubated sedated) Heart: Other (Tachycardic) Lungs: Crackles Abdomen: Soft, Other (obese) Extremities: Other (trace LE edema ) Skin: No rashes, No breakdown, No significant lesion Labs Labs: Laboratory Tests Test 04/28/21 12:56 04/28/21 15:50 04/28/21 16:54 04/28/21 17:00 Glucose (Fingerstick) 249 mg/dL (70-99) 246 mg/dL (70-99) Hepatitis B Surface Antigen Nonreactive (Nonreactive) Urine Collection Type Unknown Urine Color Yellow Urine Clarity Clear Urine pH 5.5 (<5.0-8.0) Urine Specific [place] 1.020 (1.000-1.030) Urine Protein >=300 mg/dL (NEG-TRACE) Urine Glucose (UA) 100 mg/dL (NEG) Urine Ketones (Stick) Negative mg/dL (NEG) Urine Blood Small (NEG) Urine Nitrite Negative (NEG) Urine Bilirubin Negative (NEG) Urine Urobilinogen Dipstick 0.2 mg/dL (0.2 mg/dL) Urine Leukocyte Esterase Negative (NEG) Urine RBC 0 /HPF (0-2) Urine WBC 0 /HPF (0-4) Urine Bacteria 0 /HPF (0-FEW) Test 04/28/21 23:53 04/29/21 05:50 04/29/21 05:51 Glucose (Fingerstick) 224 mg/dL (70-99) 292 mg/dL (70-99) White Blood Count 20.4 x10^3/uL (4.0-11.0) Red Blood Count 3.27 x10^6/uL (4.30-5.70) Hemoglobin 8.6 g/dL (13.0-17.5) Hematocrit 26.9 % (39.0-53.0) Mean Corpuscular Volume 82 fL (79-100) Mean Corpuscular Hemoglobin 26 pg (25-35) Mean Corpuscular Hemoglobin Concent 32 g/dL (31-37) Red Cell Distribution Width 15.9 % (11.5-14.5) Platelet Count 201 x10^3/uL (140-400) Heparin Anti-Xa Act, Unfractionated 0.43 IU/mL (0.30-0.70) Assessment and Plan Assessmemt and Plan Problems Medical Problems: (1) Elevated troponin Status: Acute (2) Person under investigation for COVID-19 Status: Acute (3) Pulmonary edema Status: Acute Comment Review of Relevant I have reviewed the following items juanita (where applicable) has been applied. Medications: Current Medications Medications (Trade) Dose Ordered Sig/Jodie Route PRN Reason Start Time Stop Time Status Last Admin Dose Admin Cefepime HCl (Maxipime) 1 gm Q24H IVP 04/28/21 09:30 04/28/21 08:03 Amiodarone HCl (Cordarone) 200 mg DAILY PO 04/28/21 09:00 04/28/21 08:02 Justifications for Admission General Conditions Altered mental status?: Yes Justification of admission: Patient has tachycardia (> 100 beats per minute) or hypotension (SBP < 90 mm Hg) leading to inadequate systemic perfusion as indicated by severe/persistent altered mental status. Other Justification ILDA SARAH BETH CARRASCO MD Apr 29, 2021 08:27
[2021-04-29 08:31] LABS: CALCIUM 7.1 mg/dL (8.5-10.1); CREATININE 3.2 mg/dL (0.7-1.3); GFR 23.1
[2021-04-29] MEDS: PANTOPRAZOLE IV PUSH 40 MG VIAL. IVP SCH (08:49)
[2021-04-29] MEDS: DEXAMETHASONE SOD PHOS 4 MG/ML VIAL IVP SCH (08:49)
[2021-04-29] MEDS: CEFEPIME HCL IV Push 1 GM VIAL. IVP SCH (08:50)
[2021-04-29] MEDS: AMIODARONE HCL 200 MG TABLET. PO SCH (08:50)
[2021-04-29 09:23] LABS: BASE EXCESS ABG -3 mmol/L (-3-3); HCO3 ABG 21 mmol/L (21-28); PCO2 ABG 33 mmHg (35-46); PO2 ABG 70 mmHg (65-108); SAT O2 ABG 93 % (92-99)
--- NOTE | 2021-04-29 09:27 | PDOC ---
PULMONARY PROGRESS NOTES DATE: 04/29/21 TIME: 09:25 Subjective Patient is resting on mechanical ventilation assist control mode 45% and a PEEP of 5 Worsening renal function COVID-19 positive Sedated with propofol and fentanyl, remains on heparin drip Vitals Vital Signs Date Time Temp Pulse Resp B/P (MAP) Pulse Ox O2 Delivery O2 Flow Rate FiO2 04/29/21 08:50 63 160/66 04/29/21 08:14 96 Ventilator 04/29/21 08:00 20 04/29/21 07:26 98.4 98.4 Comments Visual exam done due to COVID-19. Intubated and sedated No paradoxical breathing. Labs Laboratory Tests Test 04/27/21 12:16 04/27/21 16:59 04/27/21 19:00 04/27/21 21:04 Glucose (Fingerstick) 259 mg/dL (70-99) 301 mg/dL (70-99) 253 mg/dL (70-99) Heparin Anti-Xa Act, Unfractionated 0.64 IU/mL (0.30-0.70) Test 04/28/21 00:35 04/28/21 00:39 04/28/21 06:10 04/28/21 06:17 Heparin Anti-Xa Act, Unfractionated 0.55 IU/mL (0.30-0.70) 0.51 IU/mL (0.30-0.70) Glucose (Fingerstick) 231 mg/dL (70-99) 201 mg/dL (70-99) White Blood Count 23.3 x10^3/uL (4.0-11.0) Red Blood Count 3.37 x10^6/uL (4.30-5.70) Hemoglobin 8.8 g/dL (13.0-17.5) Hematocrit 27.8 % (39.0-53.0) Mean Corpuscular Volume 82 fL (79-100) Mean Corpuscular Hemoglobin 26 pg (25-35) Mean Corpuscular Hemoglobin Concent 32 g/dL (31-37) Red Cell Distribution Width 15.6 % (11.5-14.5) Platelet Count 204 x10^3/uL (140-400) Sodium Level 137 mmol/L (136-145) Potassium Level 3.5 mmol/L (3.5-5.1) Chloride Level 103 mmol/L (98-107) Carbon Dioxide Level 25 mmol/L (21-32) Anion Gap 9 (6-14) Blood Urea Nitrogen 75 mg/dL (8-26) Creatinine 4.4 mg/dL (0.7-1.3) Estimated GFR (Cockcroft-Gault) 16.0 BUN/Creatinine Ratio 17 (6-20) Glucose Level 216 mg/dL (70-99) Calcium Level 7.4 mg/dL (8.5-10.1) Total Bilirubin 0.4 mg/dL (0.2-1.0) Aspartate Amino Transf (AST/SGOT) 35 U/L (15-37) Alanine Aminotransferase (ALT/SGPT) 19 U/L (16-63) Alkaline Phosphatase 39 U/L (46-116) Total Protein 5.2 g/dL (6.4-8.2) Albumin 1.5 g/dL (3.4-5.0) Albumin/Globulin Ratio 0.4 (1.0-1.7) Test 04/28/21 08:00 04/28/21 12:56 04/28/21 15:50 04/28/21 16:54 O2 Saturation 94 % (92-99) Arterial Blood pH 7.36 (7.35-7.45) Arterial Blood pCO2 at Patient Temp 37 mmHg (35-46) Arterial Blood pO2 at Patient Temp 77 mmHg (65-108) Arterial Blood HCO3 21 mmol/L (21-28) Arterial Blood Base Excess -5 mmol/L (-3-3) FiO2 50% vent Glucose (Fingerstick) 249 mg/dL (70-99) 246 mg/dL (70-99) Hepatitis B Surface Antigen Nonreactive (Nonreactive) Test 04/28/21 17:00 04/28/21 23:53 04/29/21 05:50 04/29/21 05:51 Urine Collection Type Unknown Urine Color Yellow Urine Clarity Clear Urine pH 5.5 (<5.0-8.0) Urine Specific [place] 1.020 (1.000-1.030) Urine Protein >=300 mg/dL (NEG-TRACE) Urine Glucose (UA) 100 mg/dL (NEG) Urine Ketones (Stick) Negative mg/dL (NEG) Urine Blood Small (NEG) Urine Nitrite Negative (NEG) Urine Bilirubin Negative (NEG) Urine Urobilinogen Dipstick 0.2 mg/dL (0.2 mg/dL) Urine Leukocyte Esterase Negative (NEG) Urine RBC 0 /HPF (0-2) Urine WBC 0 /HPF (0-4) Urine Bacteria 0 /HPF (0-FEW) Glucose (Fingerstick) 224 mg/dL (70-99) 292 mg/dL (70-99) White Blood Count 20.4 x10^3/uL (4.0-11.0) Red Blood Count 3.27 x10^6/uL (4.30-5.70) Hemoglobin 8.6 g/dL (13.0-17.5) Hematocrit 26.9 % (39.0-53.0) Mean Corpuscular Volume 82 fL (79-100) Mean Corpuscular Hemoglobin 26 pg (25-35) Mean Corpuscular Hemoglobin Concent 32 g/dL (31-37) Red Cell Distribution Width 15.9 % (11.5-14.5) Platelet Count 201 x10^3/uL (140-400) Heparin Anti-Xa Act, Unfractionated 0.43 IU/mL (0.30-0.70) Test 04/29/21 06:00 Sodium Level 139 mmol/L (136-145) Potassium Level 4.0 mmol/L (3.5-5.1) Chloride Level 103 mmol/L (98-107) Carbon Dioxide Level 29 mmol/L (21-32) Anion Gap 7 (6-14) Blood Urea Nitrogen 56 mg/dL (8-26) Creatinine 3.2 mg/dL (0.7-1.3) Estimated GFR (Cockcroft-Gault) 23.1 Glucose Level 289 mg/dL (70-99) Calcium Level 7.1 mg/dL (8.5-10.1) Laboratory Tests Test 04/28/21 12:56 04/28/21 15:50 04/28/21 16:54 04/28/21 17:00 Glucose (Fingerstick) 249 mg/dL (70-99) 246 mg/dL (70-99) Hepatitis B Surface Antigen Nonreactive (Nonreactive) Urine Collection Type Unknown Urine Color Yellow Urine Clarity Clear Urine pH 5.5 (<5.0-8.0) Urine Specific [place] 1.020 (1.000-1.030) Urine Protein >=300 mg/dL (NEG-TRACE) Urine Glucose (UA) 100 mg/dL (NEG) Urine Ketones (Stick) Negative mg/dL (NEG) Urine Blood Small (NEG) Urine Nitrite Negative (NEG) Urine Bilirubin Negative (NEG) Urine Urobilinogen Dipstick 0.2 mg/dL (0.2 mg/dL) Urine Leukocyte Esterase Negative (NEG) Urine RBC 0 /HPF (0-2) Urine WBC 0 /HPF (0-4) Urine Bacteria 0 /HPF (0-FEW) Test 04/28/21 23:53 04/29/21 05:50 04/29/21 05:51 04/29/21 06:00 Glucose (Fingerstick) 224 mg/dL (70-99) 292 mg/dL (70-99) White Blood Count 20.4 x10^3/uL (4.0-11.0) Red Blood Count 3.27 x10^6/uL (4.30-5.70) Hemoglobin 8.6 g/dL (13.0-17.5) Hematocrit 26.9 % (39.0-53.0) Mean Corpuscular Volume 82 fL (79-100) Mean Corpuscular Hemoglobin 26 pg (25-35) Mean Corpuscular Hemoglobin Concent 32 g/dL (31-37) Red Cell Distribution Width 15.9 % (11.5-14.5) Platelet Count 201 x10^3/uL (140-400) Heparin Anti-Xa Act, Unfractionated 0.43 IU/mL (0.30-0.70) Sodium Level 139 mmol/L (136-145) Potassium Level 4.0 mmol/L (3.5-5.1) Chloride Level 103 mmol/L (98-107) Carbon Dioxide Level 29 mmol/L (21-32) Anion Gap 7 (6-14) Blood Urea Nitrogen 56 mg/dL (8-26) Creatinine 3.2 mg/dL (0.7-1.3) Estimated GFR (Cockcroft-Gault) 23.1 Glucose Level 289 mg/dL (70-99) Calcium Level 7.1 mg/dL (8.5-10.1) Medications Active Scripts Medications Dose Route/Sig Max Daily Dose Days Date Category Glyburide 2.5 Mg Tablet 1 Tab PO DAILY 04/19/21 Rx Polyethylene Glycol 3350 17 Gm Powd.pack 17 Gm PO DAILY 14 04/19/21 Rx Dok (Docusate Sodium) 100 Mg Capsule 100 Mg PO PRN DAILY PRN 30 04/19/21 Rx Bisacodyl 5 Mg Tablet.dr 5 Mg PO PRN DAILY PRN 14 04/19/21 Rx Acetaminophen 325 Mg Tablet 650 Mg PO PRN Q4HRS PRN 14 04/19/21 Rx Aspirin Ec (Aspirin) 81 Mg Tablet.dr 81 Mg PO DAILYWBKFT 30 04/19/21 Rx Hydralazine Hcl 25 Mg Tablet 25 Mg PO QID 30 04/19/21 Rx Fenofibrate 54 Mg Tablet 1 Tab PO DAILY 04/17/21 Reported Potassium Chloride (Potassium Chloride) 20 Meq Tablet.er 20 Meq PO DAILY 04/17/21 Reported Coreg (Carvedilol) 12.5 Mg Tablet 37.5 Mg PO BIDWMEALS 04/17/21 Reported Rosuvastatin Calcium 40 Mg Tablet 40 Mg PO QHS 04/17/21 Reported Gabapentin (Gabapentin) 100 Mg Capsule 200 Mg PO BID 04/17/21 Reported Montelukast Sodium Tablet (Montelukast Sodium) 10 Mg Tablet 10 Mg PO HS 04/17/21 Reported Protonix (Pantoprazole Sodium) 20 Mg Tablet.dr 2 Tab PO DAILY 04/17/21 Reported Amlodipine Besylate 5 Mg Tablet 5 Mg PO DAILY 04/17/21 Reported Furosemide 40 Mg Tablet 1 Tab PO DAILY 04/17/21 Reported Proair Hfa Inhaler (Albuterol Sulfate) 8.5 Gm Hfa.aer.ad 2 Puff IH PRN Q4-6HRS PRN 21 04/16/21 Reported Advair 100-50 Diskus (Fluticasone/Salmeterol) 1 Each Disk.w.dev 1 Puff IH BID 04/16/21 Reported Comments Chest x-ray reviewed 04/27. Worsening CHF Impression . IMPRESSION: 1. Acute hypoxic respiratory failure secondary to bilateral diffuse interstitial infiltrates. --COVID-[address] chest with bilateral diffuse interstitial infiltrates without any significant pleural effusion. Consistent with viral pneumonia. 3. History of recent hospitalization for abdominal pain. He was supposed to have cardiac testing and outpatient stress test. Now, he is hospitalized. Echo with normal ejection fraction and moderate left ventricular hypertrophy. 4. Abnormal troponin, likely [id number]-[id number] elevation myocardial infarction. 5. History of tobacco use, details of length not available. 6. Chronic kidney disease. Worsening ILDA on CKD, on HD now 7. Increasing metabolic acidosis secondary to ILDA. 8. Worsening CHF Plan . Updated 04/29/2021 Continue current vent support assist-control mode 20/500/45%/5 Once down to 40% FiO2, will try weaning sedation and assess mental status. ABG/chest x-ray reviewed, Continue empiric antibiotics with cefepime Continue steroids Continue remdesivir Follow cardiology recommendations continue heparin drip Follow nephrology recs . Dialysis with increased ultrafiltration today. COVID-19 positive Initiated on tube feeding Discussed with nephrology. Patient initiated on hemodialysis. DVT/GI prophylaxis Discussed with RN and RT Critical care time 30 minutes Updated 04/28/2021 Continue current vent support assist-control mode 26/500/50%/5 Once down to 40% FiO2, will try weaning sedation and assess mental status. ABG/chest x-ray reviewed, Continue empiric antibiotics with cefepime Continue steroids Continue remdesivir Follow cardiology recommendations continue heparin drip Follow nephrology recs . Dialysis with increased ultrafiltration today. COVID-19 positive Initiated on tube feeding Discussed with nephrology. DVT/GI prophylaxis Discussed with RN and RT Critical care time 30 minutes Updated 04/27/2021 Continue current vent support assist-control mode 26/500/50%/5 Once down to 40% FiO2, will try weaning sedation and assess mental status. ABG/chest x-ray reviewed, Continue empiric antibiotics with cefepime Continue steroids Continue remdesivir Follow cardiology recommendations continue heparin drip Follow nephrology recs COVID-19 positive Initiated on tube feeding Discussed with nephrology. Will be planning for hemodialysis catheter placement to correct metabolic acidosis as well as congestive heart failure DVT/GI prophylaxis Discussed with RN and RT Critical care time 30 minutes Updated 04/26/2021 Continue current vent support assist-control mode 26/500/50%/5 Once down to 40% FiO2, will try weaning sedation and assess mental status. ABG/chest x-ray reviewed, Continue empiric antibiotics with cefepime Continue steroids Continue remdesivir Follow cardiology recommendations continue heparin drip Follow nephrology recs COVID-19 positive Initiated on tube feeding DVT/GI prophylaxis Discussed with RN and RT Critical care time 30 minutes Updated 04/25/2021 Continue current vent support assist-control mode 26/500/50%/5 ABG/chest x-ray reviewed, reduce respiratory rate to 20 Continue empiric antibiotics with cefepime Continue steroids Continue remdesivir Follow cardiology recommendations continue heparin drip Follow nephrology recs COVID-19 positive Consult dietitian to initiate tube feeding DVT/GI prophylaxis Discussed with RN and RT Critical care time 35 minutes RECOMMENDATIONS: 1. Continue present assist control mode and follow ABGs and make necessary adjustments. 2. The patient is status post diuresis. We will follow chest x-ray. 3. Monitor renal function while on diuresis. 4. Continue empiric antibiotic. 5. Rule out COVID viral pneumonia. 6. Continue heparin per protocol for non-STEMI. 7. Continue sedation. 8. Follow all cultures. 9. Discussed with RN, chart reviewed, imaging studies reviewed. Total critical care time 35 minutes. We will follow along with you. JONES FISHMAN MD Apr 29, 2021 09:26
[2021-04-29 09:29] LABS: FIO2 ABG AC 20
--- NOTE | 2021-04-29 10:42 | PDOC ---
DATE OF SERVICE: DOS: DATE: 04/29/21 TIME: 10:39 SUBJECTIVE ROS Asked to see for acute kidney injury in the setting of COVID-19 pneumonitis Patient remains sedated intubated on the ventilator at this time OBJECTIVE Vital Signs Vital Signs Date Time Temp Pulse Resp B/P (MAP) Pulse Ox O2 Delivery O2 Flow Rate FiO2 04/29/21 10:32 72 20 165/74 (104) 95 Ventilator 04/29/21 07:26 98.4 98.4 I & 0 Intake and Output 04/29/21 07:00 Intake Total 1935 ml Output Total 1015 ml Balance 920 ml IV Total 242 ml Tube Feeding 1375 ml Other 318 ml Output Urine Total 1015 ml PHYSICAL EXAM Physical Exam GEN: Sedated intubated on the vent in no apparent distress Exam is limited due to COVID-19 isolation precautions. Physical exam as outlined by other providers was corroborated with the nurse, the patient DIAGNOSIS/ASSESSMENT Assessment & Plan ILDA/ATN associated with Covid nephropathy (remains nonoliguric at this time) Dialysis is done yesterday. Current fluid and electrolyte status does not require emergent dialysis and hence we will proceed with dialysis in the morning ANEMIA in the setting of renal failure, will hold off on Epogen due to potentially hypercoagulable state in setting of COVID-19 pneumonitis., Transfuse with next dialysis as needed if hemoglobin less than 7 to minimize risk for TRALI HTN: Current BP meds as reviewed. See orders for changes. BONE & MINERAL: We will check phosphorus Severe hypoalbuminemia: Suspect catabolic state. May need IV albumin to maintain hemodynamics during dialysis. Continue tube feeds COMMENT/RELEVANT DATA Meds Current Medications Medications (Trade) Dose Ordered Sig/Jodie Start Time Stop Time Status Last Admin Dose Admin Acetaminophen (Tylenol) 650 mg PRN Q6HRS PRN 04/24/21 14:00 Cancel Albumin Human 200 ml @ 200 mls/hr 1X PRN PRN 04/28/21 11:00 04/28/21 16:59 DC Amiodarone HCl (Cordarone) 200 mg DAILY 04/28/21 09:00 04/29/21 08:50 200 MG Amiodarone HCl 150 mg/Dextrose 103 ml @ 618 mls/hr 1X ONCE 04/27/21 02:30 04/27/21 02:39 DC 04/27/21 02:30 618 MLS/HR Amiodarone HCl 450 mg/Dextrose 259 ml @ 33 mls/hr CONT PRN 04/27/21 02:30 Aspirin (Ecotrin) 81 mg [id number] 04/25/21 08:00 04/28/21 08:01 81 MG Atorvastatin Calcium (Lipitor) 80 mg QHS 04/24/21 21:00 04/28/21 21:10 80 MG Bisacodyl (Dulcolax Supp) 10 mg PRN DAILY PRN 04/24/21 14:00 Carvedilol (Coreg) 3.125 mg BIDWMEALS 04/24/21 17:00 04/25/21 15:42 DC 04/25/21 09:23 3.125 MG Cefepime HCl (Maxipime) 1 gm Q24H 04/28/21 09:30 04/29/21 08:50 1 GM Chlorhexidine Gluconate (Peridex) 15 ml BID 04/24/21 21:00 04/25/21 11:19 DC 04/24/21 20:49 15 ML Dexamethasone Sodium Phosphate (Decadron) 6 mg DAILY 04/25/21 17:00 04/29/21 08:49 6 MG Dextrose (Dextrose 50%-Water Syringe) 12.5 gm PRN Q15MIN PRN 04/24/21 16:30 04/24/21 23:43 12.5 GM Digoxin (Lanoxin) 250 mcg 1X ONCE 04/26/21 13:00 04/26/21 13:05 DC 04/26/21 15:02 250 MCG Etomidate (Amidate) 20 mg STK-MED ONCE 04/24/21 13:38 04/24/21 13:38 DC Fentanyl Citrate 30 ml @ 0 mls/hr CONT PRN 04/24/21 14:00 04/29/21 09:46 3.75 MLS/HR Fentanyl Citrate (Fentanyl 2ml Vial) 25 mcg PRN Q1HR PRN 04/24/21 14:00 04/24/21 16:39 25 MCG Furosemide (Lasix) 40 mg 1X ONCE 04/25/21 11:30 04/25/21 11:31 DC Heparin Sodium (Porcine) (Heparin Sodium) 3,200 unit PRN Q6HRS PRN 04/24/21 16:45 04/24/21 23:32 3,200 UNIT Heparin Sodium/ Dextrose 250 ml @ 0 mls/hr CONT PRN 04/24/21 16:45 04/28/21 16:45 10 MLS/HR Hydralazine HCl (Apresoline Inj) 10 mg PRN Q4HRS PRN 04/25/21 14:45 Info (Anti-Coagulation Monitoring By Pharmacy) 1 each PRN DAILY PRN 04/25/21 13:00 04/26/21 08:51 1 EACH Info (PHARMACY MONITORING -- do not chart) 1 each PRN DAILY PRN 04/28/21 11:00 Insulin Glargine (Lantus Syringe) 25 unit QHS 04/27/21 21:00 04/28/21 21:11 25 UNIT Insulin Human Lispro (HumaLOG) 0-9 UNITS Q6HRS 04/24/21 18:00 04/29/21 06:08 9 UNITS Lidocaine HCl (Buffered Lidocaine 1%) 3 ml 1X ONCE 04/27/21 11:15 04/27/21 11:16 DC 04/27/21 11:15 3 ML Metoprolol Tartrate (Lopressor Vial) 5 mg Q6HRS 04/25/21 18:00 04/29/21 06:09 5 MG Midazolam HCl 100 ml @ 0 mls/hr CONT PRN 04/26/21 07:00 04/28/21 20:52 6 MLS/HR Montelukast Sodium (Singulair) 10 mg HS 04/24/21 21:00 04/28/21 21:10 10 MG Norepinephrine Bitartrate 8 mg/ Dextrose 258 ml @ 25.349 mls/ hr CONT PRN 04/26/21 12:15 04/26/21 17:53 19.4 MLS/HR Ondansetron HCl (Zofran) 4 mg PRN Q6HRS PRN 04/24/21 14:00 Pantoprazole Sodium (PROTONIX VIAL for IV PUSH) 40 mg DAILYAC 04/26/21 09:30 04/29/21 08:49 40 MG Propofol 100 ml @ 0 mls/hr CONT PRN 04/24/21 15:30 04/26/21 05:25 15.2 MLS/HR Remdesivir 100 mg/ Sodium Chloride 230 ml @ 460 mls/hr Q24H 04/26/21 17:30 04/29/21 17:59 04/28/21 16:42 460 MLS/HR Remdesivir 200 mg/ Sodium Chloride 210 ml @ 210 mls/hr 1X ONCE 04/25/21 17:30 04/25/21 18:29 DC 04/25/21 17:09 210 MLS/HR Sodium Bicarbonate (Sodium Bicarb Adult 8.4% Syr) 50 meq 1X ONCE 04/27/21 09:45 04/27/21 09:46 DC 04/27/21 09:50 50 MEQ Sodium Chloride 1,000 ml @ 400 mls/hr Q2H30M PRN 04/28/21 11:00 04/28/21 22:59 DC Sodium Chloride (Normal Saline Flush) 10 ml 1X PRN PRN 04/28/21 11:00 04/29/21 10:59 Succinylcholine Chloride (Anectine) 200 mg STK-MED ONCE 04/24/21 13:38 04/24/21 13:38 DC Lab Laboratory Tests Test 04/28/21 12:56 04/28/21 15:50 04/28/21 16:54 04/28/21 17:00 Glucose (Fingerstick) 249 mg/dL (70-99) 246 mg/dL (70-99) Hepatitis B Surface Antigen Nonreactive (Nonreactive) Urine Collection Type Unknown Urine Color Yellow Urine Clarity Clear Urine pH 5.5 (<5.0-8.0) Urine Specific [place] 1.020 (1.000-1.030) Urine Protein >=300 mg/dL (NEG-TRACE) Urine Glucose (UA) 100 mg/dL (NEG) Urine Ketones (Stick) Negative mg/dL (NEG) Urine Blood Small (NEG) Urine Nitrite Negative (NEG) Urine Bilirubin Negative (NEG) Urine Urobilinogen Dipstick 0.2 mg/dL (0.2 mg/dL) Urine Leukocyte Esterase Negative (NEG) Urine RBC 0 /HPF (0-2) Urine WBC 0 /HPF (0-4) Urine Bacteria 0 /HPF (0-FEW) Test 04/28/21 23:53 04/29/21 05:50 04/29/21 05:51 04/29/21 06:00 Glucose (Fingerstick) 224 mg/dL (70-99) 292 mg/dL (70-99) White Blood Count 20.4 x10^3/uL (4.0-11.0) Red Blood Count 3.27 x10^6/uL (4.30-5.70) Hemoglobin 8.6 g/dL (13.0-17.5) Hematocrit 26.9 % (39.0-53.0) Mean Corpuscular Volume 82 fL (79-100) Mean Corpuscular Hemoglobin 26 pg (25-35) Mean Corpuscular Hemoglobin Concent 32 g/dL (31-37) Red Cell Distribution Width 15.9 % (11.5-14.5) Platelet Count 201 x10^3/uL (140-400) Heparin Anti-Xa Act, Unfractionated 0.43 IU/mL (0.30-0.70) Sodium Level 139 mmol/L (136-145) Potassium Level 4.0 mmol/L (3.5-5.1) Chloride Level 103 mmol/L (98-107) Carbon Dioxide Level 29 mmol/L (21-32) Anion Gap 7 (6-14) Blood Urea Nitrogen 56 mg/dL (8-26) Creatinine 3.2 mg/dL (0.7-1.3) Estimated GFR (Cockcroft-Gault) 23.1 Glucose Level 289 mg/dL (70-99) Calcium Level 7.1 mg/dL (8.5-10.1) Test 04/29/21 09:25 O2 Saturation 93 % (92-99) Arterial Blood pH 7.42 (7.35-7.45) Arterial Blood pCO2 at Patient Temp 33 mmHg (35-46) Arterial Blood pO2 at Patient Temp 70 mmHg (65-108) Arterial Blood HCO3 21 mmol/L (21-28) Arterial Blood Base Excess -3 mmol/L (-3-3) FiO2 Ac 20 Results All relevant outside records, renal labs, imaging studies, telemetry/EKG's were reviewed. Justicifation of Admission Dx: Justifications for Admission: Justification of Admission Dx: Yes Aspiration Pneumonia: Hemodynamic Instability DEREK RIVERO MD Apr 29, 2021 10:42
[2021-04-29] MEDS ORDERED: MAGNESIUM SULFATE 2GM 50 ML IV PRN (10:45)
[2021-04-29] MEDS: REMDESIVIR 100mg in NORMAL SALINE 250ML X 4 DAYS IV SCH (13:51)
[2021-04-29] MEDS: MIDAZOLAM 100mg/100ml NS BAG 100 ML IV PRN (14:32)
--- NOTE | 2021-04-29 15:18 | PDOC ---
PROGRESS NOTES Date of Service DATE: 04/29/21 TIME: 15:16 Subjective Subjective Patient seen and evaluated. Objective Objective Vital Signs Date Time Temp Pulse Resp B/P (MAP) Pulse Ox O2 Delivery O2 Flow Rate FiO2 04/29/21 14:07 65 20 177/83 (114) 95 Ventilator 04/29/21 12:16 98.4 98.4 Intake and Output 04/29/21 07:00 Intake Total 1935 ml Output Total 1015 ml Balance 920 ml IV Total 242 ml Tube Feeding 1375 ml Other 318 ml Output Urine Total 1015 ml Physical Exam Physical Exam Visual examination as per Covid status. Assessment Assessment Problems Medical Problems: (1) Elevated troponin Status: Acute (2) Person under investigation for COVID-19 Status: Acute (3) Pulmonary edema Status: Acute Acute respiratory failure secondary to CHF, s/p intubation. COVID +. Continues on a vent. Followed by pulmonary and ID. Acute on chronic diastolic CHF. Hypertensive urgency; controlled, levophed if needed for hypotension. NSTEMI; trop highest 2.8. Echo last week with preserved LV systolic function with moderate LVH. Most probable type II, demand ischemia in setting of above, although underling ischemic cannot be ruled out Possible history of CAD; details unknown Hyperlipidemia; statin ILDA on CKD; per nephrology. Creatinine at 3.2. Followed by the renal service. Diabetes, II New AFIB with RVR: currently SR Comment Review of Relevant I have reviewed the following items juanita (where applicable) has been applied. Labs Laboratory Tests Test 04/27/21 16:59 04/27/21 19:00 04/27/21 21:04 04/28/21 00:35 Glucose (Fingerstick) 301 mg/dL (70-99) 253 mg/dL (70-99) Heparin Anti-Xa Act, Unfractionated 0.64 IU/mL (0.30-0.70) 0.55 IU/mL (0.30-0.70) Test 04/28/21 00:39 04/28/21 06:10 04/28/21 06:17 04/28/21 08:00 Glucose (Fingerstick) 231 mg/dL (70-99) 201 mg/dL (70-99) White Blood Count 23.3 x10^3/uL (4.0-11.0) Red Blood Count 3.37 x10^6/uL (4.30-5.70) Hemoglobin 8.8 g/dL (13.0-17.5) Hematocrit 27.8 % (39.0-53.0) Mean Corpuscular Volume 82 fL (79-100) Mean Corpuscular Hemoglobin 26 pg (25-35) Mean Corpuscular Hemoglobin Concent 32 g/dL (31-37) Red Cell Distribution Width 15.6 % (11.5-14.5) Platelet Count 204 x10^3/uL (140-400) Heparin Anti-Xa Act, Unfractionated 0.51 IU/mL (0.30-0.70) Sodium Level 137 mmol/L (136-145) Potassium Level 3.5 mmol/L (3.5-5.1) Chloride Level 103 mmol/L (98-107) Carbon Dioxide Level 25 mmol/L (21-32) Anion Gap 9 (6-14) Blood Urea Nitrogen 75 mg/dL (8-26) Creatinine 4.4 mg/dL (0.7-1.3) Estimated GFR (Cockcroft-Gault) 16.0 BUN/Creatinine Ratio 17 (6-20) Glucose Level 216 mg/dL (70-99) Calcium Level 7.4 mg/dL (8.5-10.1) Total Bilirubin 0.4 mg/dL (0.2-1.0) Aspartate Amino Transf (AST/SGOT) 35 U/L (15-37) Alanine Aminotransferase (ALT/SGPT) 19 U/L (16-63) Alkaline Phosphatase 39 U/L (46-116) Total Protein 5.2 g/dL (6.4-8.2) Albumin 1.5 g/dL (3.4-5.0) Albumin/Globulin Ratio 0.4 (1.0-1.7) O2 Saturation 94 % (92-99) Arterial Blood pH 7.36 (7.35-7.45) Arterial Blood pCO2 at Patient Temp 37 mmHg (35-46) Arterial Blood pO2 at Patient Temp 77 mmHg (65-108) Arterial Blood HCO3 21 mmol/L (21-28) Arterial Blood Base Excess -5 mmol/L (-3-3) FiO2 50% vent Test 04/28/21 12:56 04/28/21 15:50 04/28/21 16:54 04/28/21 17:00 Glucose (Fingerstick) 249 mg/dL (70-99) 246 mg/dL (70-99) Hepatitis B Surface Antigen Nonreactive (Nonreactive) Urine Collection Type Unknown Urine Color Yellow Urine Clarity Clear Urine pH 5.5 (<5.0-8.0) Urine Specific Homer 1.020 (1.000-1.030) Urine Protein >=300 mg/dL (NEG-TRACE) Urine Glucose (UA) 100 mg/dL (NEG) Urine Ketones (Stick) Negative mg/dL (NEG) Urine Blood Small (NEG) Urine Nitrite Negative (NEG) Urine Bilirubin Negative (NEG) Urine Urobilinogen Dipstick 0.2 mg/dL (0.2 mg/dL) Urine Leukocyte Esterase Negative (NEG) Urine RBC 0 /HPF (0-2) Urine WBC 0 /HPF (0-4) Urine Bacteria 0 /HPF (0-FEW) Test 04/28/21 23:53 04/29/21 05:50 04/29/21 05:51 04/29/21 06:00 Glucose (Fingerstick) 224 mg/dL (70-99) 292 mg/dL (70-99) White Blood Count 20.4 x10^3/uL (4.0-11.0) Red Blood Count 3.27 x10^6/uL (4.30-5.70) Hemoglobin 8.6 g/dL (13.0-17.5) Hematocrit 26.9 % (39.0-53.0) Mean Corpuscular Volume 82 fL (79-100) Mean Corpuscular Hemoglobin 26 pg (25-35) Mean Corpuscular Hemoglobin Concent 32 g/dL (31-37) Red Cell Distribution Width 15.9 % (11.5-14.5) Platelet Count 201 x10^3/uL (140-400) Heparin Anti-Xa Act, Unfractionated 0.43 IU/mL (0.30-0.70) Sodium Level 139 mmol/L (136-145) Potassium Level 4.0 mmol/L (3.5-5.1) Chloride Level 103 mmol/L (98-107) Carbon Dioxide Level 29 mmol/L (21-32) Anion Gap 7 (6-14) Blood Urea Nitrogen 56 mg/dL (8-26) Creatinine 3.2 mg/dL (0.7-1.3) Estimated GFR (Cockcroft-Gault) 23.1 Glucose Level 289 mg/dL (70-99) Calcium Level 7.1 mg/dL (8.5-10.1) Test 04/29/21 09:25 04/29/21 12:58 O2 Saturation 93 % (92-99) Arterial Blood pH 7.42 (7.35-7.45) Arterial Blood pCO2 at Patient Temp 33 mmHg (35-46) Arterial Blood pO2 at Patient Temp 70 mmHg (65-108) Arterial Blood HCO3 21 mmol/L (21-28) Arterial Blood Base Excess -3 mmol/L (-3-3) FiO2 Ac 20 Glucose (Fingerstick) 232 mg/dL (70-99) Laboratory Tests Test 04/28/21 15:50 04/28/21 16:54 04/28/21 17:00 04/28/21 23:53 Hepatitis B Surface Antigen Nonreactive (Nonreactive) Glucose (Fingerstick) 246 mg/dL (70-99) 224 mg/dL (70-99) Urine Collection Type Unknown Urine Color Yellow Urine Clarity Clear Urine pH 5.5 (<5.0-8.0) Urine Specific Homer 1.020 (1.000-1.030) Urine Protein >=300 mg/dL (NEG-TRACE) Urine Glucose (UA) 100 mg/dL (NEG) Urine Ketones (Stick) Negative mg/dL (NEG) Urine Blood Small (NEG) Urine Nitrite Negative (NEG) Urine Bilirubin Negative (NEG) Urine Urobilinogen Dipstick 0.2 mg/dL (0.2 mg/dL) Urine Leukocyte Esterase Negative (NEG) Urine RBC 0 /HPF (0-2) Urine WBC 0 /HPF (0-4) Urine Bacteria 0 /HPF (0-FEW) Test 04/29/21 05:50 04/29/21 05:51 04/29/21 06:00 04/29/21 09:25 White Blood Count 20.4 x10^3/uL (4.0-11.0) Red Blood Count 3.27 x10^6/uL (4.30-5.70) Hemoglobin 8.6 g/dL (13.0-17.5) Hematocrit 26.9 % (39.0-53.0) Mean Corpuscular Volume 82 fL (79-100) Mean Corpuscular Hemoglobin 26 pg (25-35) Mean Corpuscular Hemoglobin Concent 32 g/dL (31-37) Red Cell Distribution Width 15.9 % (11.5-14.5) Platelet Count 201 x10^3/uL (140-400) Heparin Anti-Xa Act, Unfractionated 0.43 IU/mL (0.30-0.70) Glucose (Fingerstick) 292 mg/dL (70-99) Sodium Level 139 mmol/L (136-145) Potassium Level 4.0 mmol/L (3.5-5.1) Chloride Level 103 mmol/L (98-107) Carbon Dioxide Level 29 mmol/L (21-32) Anion Gap 7 (6-14) Blood Urea Nitrogen 56 mg/dL (8-26) Creatinine 3.2 mg/dL (0.7-1.3) Estimated GFR (Cockcroft-Gault) 23.1 Glucose Level 289 mg/dL (70-99) Calcium Level 7.1 mg/dL (8.5-10.1) O2 Saturation 93 % (92-99) Arterial Blood pH 7.42 (7.35-7.45) Arterial Blood pCO2 at Patient Temp 33 mmHg (35-46) Arterial Blood pO2 at Patient Temp 70 mmHg (65-108) Arterial Blood HCO3 21 mmol/L (21-28) Arterial Blood Base Excess -3 mmol/L (-3-3) FiO2 Ac 20 Test 04/29/21 12:58 Glucose (Fingerstick) 232 mg/dL (70-99) Microbiology 04/24/21 Blood Culture - Preliminary, Resulted NO GROWTH AFTER 4 DAYS Medications Current Medications Propofol 100 ml @ As Directed STK-MED ONCE IV ; Start 04/24/21 at 12:36; Stop 04/24/21 at 12:36; Status DC Etomidate (Amidate) 20 mg STK-MED ONCE IV ; Start 04/24/21 at 13:38; Stop 04/24/21 at 13:38; Status DC Succinylcholine Chloride (Anectine) 200 mg STK-MED ONCE .ROUTE ; Start 04/24/21 at 13:38; Stop 04/24/21 at 13:38; Status DC Fentanyl Citrate (Fentanyl 2ml Vial) 50 mcg PRN Q1HR PRN IV PAIN; Start 04/24/21 at 14:00; Stop 04/24/21 at 14:14; Status DC Acetaminophen (Tylenol) 650 mg PRN Q6HRS PRN PO Headaches, Temp > 101.5' Last administered on 04/25/21at 17:31; Start 04/24/21 at 14:00 Ondansetron HCl (Zofran) 4 mg PRN Q6HRS PRN IVP NAUSEA/VOMITING; Start 04/24/21 at 14:00; Status Cancel Sodium Chloride (Normal Saline Flush) 3 ml QSHIFT PRN IV AFTER MEDS AND BLOOD DRAWS; Start 04/24/21 at 14:00 Fentanyl Citrate (Fentanyl 2ml Vial) 25 mcg PRN Q1HR PRN IV SEVERE PAIN 7-10; Start 04/24/21 at 14:00; Stop 04/24/21 at 14:14; Status DC Bisacodyl (Dulcolax Supp) 10 mg PRN DAILY PRN GA CONSTIPATION; Start 04/24/21 at 14:00 Fentanyl Citrate 30 ml @ 0 mls/hr CONT PRN IV SEE PROTOCOL; Start 04/24/21 at 14:00; Stop 04/24/21 at 14:12; Status DC Propofol 100 ml @ 0 mls/hr CONT PRN IV PER PROTOCOL Last administered on 04/24/21at 15:12; Start 04/24/21 at 14:00; Stop 04/24/21 at 15:19; Status DC Chlorhexidine Gluconate (Peridex) 15 ml BID MM Last administered on 04/24/21at 20:49; Start 04/24/21 at 21:00; Stop 04/25/21 at 11:19; Status DC Acetaminophen (Tylenol) 650 mg PRN Q6HRS PRN PO Headaches, Temp > 101.5'; Start 04/24/21 at 14:00; Status Cancel Ondansetron HCl (Zofran) 4 mg PRN Q6HRS PRN IVP NAUSEA/VOMITING; Start 04/24/21 at 14:00 Fentanyl Citrate (Fentanyl 2ml Vial) 25 mcg PRN Q1HR PRN IV SEVERE PAIN 7-10 Last administered on 04/24/21at 16:39; Start 04/24/21 at 14:00 Fentanyl Citrate 30 ml @ 0 mls/hr CONT PRN IV SEE PROTOCOL Last administered on 04/29/21at 09:46; Start 04/24/21 at 14:00 Aspirin (Ecotrin) 81 mg DAILYWBKFT PO Last administered on 04/28/21at 08:01; Start 04/25/21 at 08:00 Carvedilol (Coreg) 37.5 mg BIDWMEALS PO ; Start 04/24/21 at 17:00; Stop 04/24/21 at 16:17; Status DC Montelukast Sodium (Singulair) 10 mg HS PO Last administered on 04/28/21at 21:10; Start 04/24/21 at 21:00 Atorvastatin Calcium (Lipitor) 80 mg QHS PO Last administered on 04/28/21at 21:10; Start 04/24/21 at 21:00 Heparin Sodium (Porcine) (Heparin Sodium) 5,000 unit Q8HRS SQ ; Start 04/24/21 at 22:00; Status Cancel Furosemide (Lasix) 40 mg 1X ONCE IVP Last administered on 04/24/21at 16:45; Start 04/24/21 at 15:15; Stop 04/24/21 at 15:19; Status DC Propofol 100 ml @ 0 mls/hr CONT PRN IV PER PROTOCOL Last administered on 04/26/21at 05:25; Start 04/24/21 at 15:30 Carvedilol (Coreg) 3.125 mg BIDWMEALS PO Last administered on 04/25/21at 09:23; Start 04/24/21 at 17:00; Stop 04/25/21 at 15:42; Status DC Cefepime HCl (Maxipime) 2 gm 1X ONCE IVP Last administered on 04/24/21at 18:27; Start 04/24/21 at 16:30; Stop 04/24/21 at 16:31; Status DC Insulin Human Lispro (HumaLOG) 0-9 UNITS Q6HRS SQ Last administered on 04/29/21at 13:02; Start 04/24/21 at 18:00 Dextrose (Dextrose 50%-Water Syringe) 12.5 gm PRN Q15MIN PRN IV SEE COMMENTS Last administered on 04/24/21at 23:43; Start 04/24/21 at 16:30 Heparin Sodium/ Dextrose 250 ml @ 0 mls/hr CONT PRN IV PER PROTOCOL Last administered on 04/28/21at 16:45; Start 04/24/21 at 16:45 Heparin Sodium (Porcine) (Heparin Sodium) 3,200 unit PRN Q6HRS PRN IV FOR UFH LEVEL LESS THAN 0.2 Last administered on 04/24/21at 23:32; Start 04/24/21 at 16:45 Cefepime HCl (Maxipime) 1 gm Q12HR IVP Last administered on 04/27/21at 08:09; Start 04/25/21 at 09:00; Stop 04/27/21 at 09:17; Status DC Furosemide (Lasix) 40 mg 1X ONCE IVP ; Start 04/25/21 at 11:30; Stop 04/25/21 at 11:31; Status DC Metoprolol Tartrate (Lopressor Vial) 5 mg 1X ONCE IVP Last administered on 04/25/21at 11:27; Start 04/25/21 at 11:30; Stop 04/25/21 at 11:31; Status DC Info (Anti-Coagulation Monitoring By Pharmacy) 1 each PRN DAILY PRN MC PER PROTOCOL Last administered on 04/26/21at 08:51; Start 04/25/21 at 13:00 Digoxin (Lanoxin) 500 mcg 1X ONCE IV Last administered on 04/25/21at 14:52; Start 04/25/21 at 14:45; Stop 04/25/21 at 14:46; Status DC Hydralazine HCl (Apresoline Inj) 10 mg PRN Q4HRS PRN IVP ELEVATED BP, SEE COMMENTS; Start 04/25/21 at 14:45 Metoprolol Tartrate (Lopressor Vial) 5 mg Q6HRS IVP Last administered on 04/29/21at 13:02; Start 04/25/21 at 18:00 Dexamethasone Sodium Phosphate (Decadron) 6 mg DAILY IVP Last administered on 04/29/21at 08:49; Start 04/25/21 at 17:00 Remdesivir 200 mg/ Sodium Chloride 210 ml @ 210 mls/hr 1X ONCE IV Last administered on 04/25/21at 17:09; Start 04/25/21 at 17:30; Stop 04/25/21 at 18:29; Status DC Remdesivir 100 mg/ Sodium Chloride 230 ml @ 460 mls/hr Q24H IV Last administered on 04/29/21at 13:51; Start 04/26/21 at 17:30; Stop 04/29/21 at 17:59 Midazolam HCl 100 ml @ 0 mls/hr CONT PRN IV SEE PROTOCOL Last administered on 04/29/21at 14:32; Start 04/26/21 at 07:00 Pantoprazole Sodium (PROTONIX VIAL for IV PUSH) 40 mg DAILYAC IVP Last administered on 04/29/21at 08:49; Start 04/26/21 at 09:30 Norepinephrine Bitartrate 8 mg/ Dextrose 258 ml @ 25.349 mls/ hr CONT PRN IV PER PROTOCOL Last administered on 04/26/21at 17:53; Start 04/26/21 at 12:15 Digoxin (Lanoxin) 250 mcg 1X ONCE IV Last administered on 04/26/21at 15:02; Start 04/26/21 at 13:00; Stop 04/26/21 at 13:05; Status DC Amiodarone HCl 150 mg/Dextrose 103 ml @ 618 mls/hr 1X ONCE IV Last administered on 04/27/21at 02:30; Start 04/27/21 at 02:30; Stop 04/27/21 at 02:39; Status DC Amiodarone HCl 450 mg/Dextrose 259 ml @ 33 mls/hr CONT PRN IV SEE I/O RECORD; Start 04/27/21 at 02:30 Insulin Glargine (Lantus Syringe) 25 unit QHS SQ Last administered on 04/28/21at 21:11; Start 04/27/21 at 21:00 Cefepime HCl (Maxipime) 1 gm Q24H IVP Last administered on 04/29/21at 08:50; Start 04/28/21 at 09:30 Sodium Bicarbonate (Sodium Bicarb Adult 8.4% Syr) 50 meq 1X ONCE IV Last administered on 04/27/21at 09:50; Start 04/27/21 at 09:45; Stop 04/27/21 at 09:46; Status DC Lidocaine HCl (Buffered Lidocaine 1%) 3 ml STK-MED ONCE .ROUTE ; Start 04/27/21 at 10:57; Stop 04/27/21 at 10:58; Status DC Amiodarone HCl (Cordarone) 200 mg DAILY PO ; Start 04/27/21 at 12:00; Stop 04/27/21 at 12:29; Status DC Lidocaine HCl (Buffered Lidocaine 1%) 3 ml 1X ONCE INJ Last administered on 04/27/21at 11:15; Start 04/27/21 at 11:15; Stop 04/27/21 at 11:16; Status DC Amiodarone HCl (Cordarone) 200 mg DAILY PO Last administered on 04/29/21at 08:50; Start 04/28/21 at 09:00 Sodium Chloride 1,000 ml @ 1,000 mls/hr Q1H PRN IV hypotension; Start 04/28/21 at 11:00; Stop 04/28/21 at 16:59; Status DC Albumin Human 200 ml @ 200 mls/hr 1X PRN PRN IV Hypotension; Start 04/28/21 at 11:00; Stop 04/28/21 at 16:59; Status DC Sodium Chloride (Normal Saline Flush) 10 ml 1X PRN PRN IV AP catheter pack; Start 04/28/21 at 11:00; Stop 04/29/21 at 10:59; Status DC Sodium Chloride (Normal Saline Flush) 10 ml 1X PRN PRN IV CONCRETE BLOCK LAYER catheter pack; Start 04/28/21 at 11:00; Stop 04/29/21 at 10:59; Status DC Sodium Chloride 1,000 ml @ 400 mls/hr Q2H30M PRN IV PATENCY; Start 04/28/21 at 11:00; Stop 04/28/21 at 22:59; Status DC Info (PHARMACY MONITORING -- do not chart) 1 each PRN DAILY PRN MC SEE COMMENTS; Start 04/28/21 at 11:00; Status UNV Info (PHARMACY MONITORING -- do not chart) 1 each PRN DAILY PRN MC SEE COMMENTS; Start 04/28/21 at 11:00 Magnesium Sulfate 50 ml @ 25 mls/hr PRN DAILY PRN IV for Mag < 1.7 on am labs; Start 04/29/21 at 10:45 Active Scripts Active Glyburide 2.5 Mg Tablet 1 Tab PO DAILY 14 Days Polyethylene Glycol 3350 17 Gm Powd.pack 17 Gm PO DAILY 14 Days Dok (Docusate Sodium) 100 Mg Capsule 100 Mg PO PRN DAILY PRN 30 Days Bisacodyl 5 Mg Tablet.dr 5 Mg PO PRN DAILY PRN 14 Days Acetaminophen 325 Mg Tablet 650 Mg PO PRN Q4HRS PRN 14 Days Aspirin Ec (Aspirin) 81 Mg Tablet. 81 Mg PO DAILYWBKFT 30 Days Hydralazine Hcl 25 Mg Tablet 25 Mg PO QID 30 Days Reported Fenofibrate 54 Mg Tablet 1 Tab PO DAILY Potassium Chloride (Potassium Chloride) 20 Meq Tablet.er 20 Meq PO DAILY Coreg (Carvedilol) 12.5 Mg Tablet 37.5 Mg PO BIDWMEALS Rosuvastatin Calcium 40 Mg Tablet 40 Mg PO QHS Gabapentin (Gabapentin) 100 Mg Capsule 200 Mg PO BID Montelukast Sodium Tablet (Montelukast Sodium) 10 Mg Tablet 10 Mg PO HS Protonix (Pantoprazole Sodium) 20 Mg Tablet.dr 2 Tab PO DAILY Amlodipine Besylate 5 Mg Tablet 5 Mg PO DAILY Furosemide 40 Mg Tablet 1 Tab PO DAILY Proair Hfa Inhaler (Albuterol Sulfate) 8.5 Gm Hfa.aer.ad 2 Puff IH PRN Q4-6HRS PRN 21 Days Advair 100-50 Diskus (Fluticasone/Salmeterol) 1 Each Disk.w.dev 1 Puff IH BID Vitals/I & O Vital Sign - Last 24 Hours 04/28/21 04/28/21 04/28/21 04/28/21 15:41 16:00 16:00 16:42 Temp 97.5 97.5 Pulse 72 75 Resp 20 B/P (MAP) 171/73 (105) 171/73 Pulse Ox 96 94 O2 Delivery Ventilator Mechanical Ventilator Ventilator 04/28/21 04/28/21 04/28/21 04/28/21 16:46 17:00 17:49 18:00 Pulse 64 71 Resp 20 20 B/P (MAP) 159/67 (97) 155/64 (94) Pulse Ox 96 95 95 96 O2 Delivery Ventilator Ventilator Ventilator Ventilator 04/28/21 04/28/21 04/28/21 04/28/21 19:00 20:00 20:00 20:40 Temp 99.1 99.1 Pulse 71 71 Resp 20 20 B/P (MAP) 173/63 (99) 175/77 (109) Pulse Ox 95 95 92 O2 Delivery Ventilator Mechanical Ventilator Ventilator Ventilator 04/28/21 04/28/21 04/28/21 04/29/21 21:00 22:00 23:00 00:00 Pulse 83 67 61 Resp 20 20 20 B/P (MAP) 176/76 (109) 164/70 (101) 126/58 (80) Pulse Ox 95 94 96 O2 Delivery Ventilator Ventilator Ventilator Mechanical Ventilator 04/29/21 04/29/21 04/29/21 04/29/21 00:00 00:01 00:30 01:00 Temp 99.3 99.3 Pulse 76 67 66 Resp 20 20 B/P (MAP) 152/65 (94) 152/65 139/57 (84) Pulse Ox 96 96 96 O2 Delivery Ventilator Ventilator Ventilator 04/29/21 04/29/21 04/29/21 04/29/21 02:00 03:00 04:00 04:00 Temp 98.6 98.6 Pulse 67 65 71 Resp 20 20 20 B/P (MAP) 117/55 (75) 121/56 (77) 175/70 (105) Pulse Ox 96 96 96 O2 Delivery Ventilator Ventilator Ventilator Mechanical Ventilator 04/29/21 04/29/21 04/29/21 04/29/21 04:48 05:00 06:00 06:09 Pulse 72 74 76 Resp 20 20 B/P (MAP) 159/69 (99) 156/70 (98) 156/70 Pulse Ox 95 93 93 O2 Delivery Ventilator Ventilator Ventilator 04/29/21 04/29/21 04/29/21 04/29/21 07:26 08:00 08:00 08:14 Temp 98.4 98.4 Pulse 63 75 Resp 20 20 B/P (MAP) 160/66 (97) 140/67 (91) Pulse Ox 94 94 96 O2 Delivery Ventilator Mechanical Ventilator Ventilator Ventilator 04/29/21 04/29/21 04/29/21 04/29/21 08:50 09:00 09:46 10:16 Pulse 63 64 Resp 20 25 20 B/P (MAP) 160/66 156/70 (98) Pulse Ox 94 95 96 O2 Delivery Ventilator Ventilator Ventilator 04/29/21 04/29/21 04/29/21 04/29/21 10:32 11:05 11:33 12:12 Pulse 72 60 Resp 20 20 B/P (MAP) 165/74 (104) 159/72 (101) Pulse Ox 95 96 96 O2 Delivery Ventilator Ventilator Ventilator Mechanical Ventilator 04/29/21 04/29/21 04/29/21 04/29/21 12:16 13:02 13:18 14:07 Temp 98.4 98.4 Pulse 61 61 54 65 Resp 20 20 20 B/P (MAP) 165/68 (100) 165/68 163/77 (105) 177/83 (114) Pulse Ox 96 94 95 O2 Delivery Ventilator Ventilator Ventilator Intake and Output 04/28/21 04/28/21 04/29/21 15:00 23:00 07:00 Intake Total 200 ml 1293 ml 442 ml Output Total 315 ml 430 ml 270 ml Balance -115 ml 863 ml 172 ml Justifications for Admission General Conditions Altered mental status?: Yes Justification of admission: Patient has tachycardia (> 100 beats per minute) or hypotension (SBP < 90 mm Hg) leading to inadequate systemic perfusion as indicated by severe/persistent altered mental status. Other Justification ILDA VIDAL RODRIGUEZ MD Apr 29, 2021 15:18
[2021-04-29] MEDS: ATORVASTATIN CALCIUM 40 MG TABLET. PO SCH (21:28)
[2021-04-29] MEDS: MONTELUKAST SODIUM 10 MG TABLET. PO SCH (21:29)
[2021-04-29] MEDS: INSULIN GLARGINE SYRINGE. SQ SCH (21:29)
[2021-04-30] VITALS (23 sets, daily range): BP systolic 133–187; BP diastolic 57–93
[2021-04-30] MEDS: INSULIN LISPRO 300 UNITS/3 ML VIAL. SQ SCH ×5 (00:22→23:55)
[2021-04-30] MEDS: HEPARIN 25,000UTS/250ML PREMIX 250 ML IV PRN (02:19)
[2021-04-30] MEDS: METOPROLOL IV PUSH 5 MG/5 ML VIAL. IVP SCH ×4 (06:13→23:54)
[2021-04-30] MEDS: MIDAZOLAM 100mg/100ml NS BAG 100 ML IV PRN ×2 (06:41→19:32)
[2021-04-30 07:05] LABS: ALBUMIN 1.5 g/dL (3.4-5.0); CALCIUM 7.7 mg/dL (8.5-10.1); CREATININE 3.6 mg/dL (0.7-1.3); GFR 20.2; PHOSPHORUS 3.9 mg/dL (2.6-4.7); POTASSIUM 3.8 mmol/L (3.5-5.1)
[2021-04-30 07:11] LABS: BASO # 0.1 x10^3/uL (0.0-0.2); BASO % 0 % (0-3); EOS % 0 % (0-3); HEMATOCRIT 27.2 % (39.0-53.0); HEMOGLOBIN 8.7 g/dL (13.0-17.5); LYMPH # 1.3 x10^3/uL (1.0-4.8); LYMPH % 6 % (24-48); MEAN CORPUSCULAR HEMOGLOBIN 26 pg (25-35); MEAN CORPUSCULAR HGB CONC 32 g/dL (31-37); MEAN CORPUSCULAR VOLUME 82 fL (79-100); MONO # 1.6 x10^3/uL (0.0-1.1); MONO % 7 % (0-9); NEUT # 20.1 x10^3/uL (1.8-7.7); NEUT % 87 % (31-73); PLATELET COUNT 243 x10^3/uL (140-400); RED BLOOD COUNT 3.33 x10^6/uL (4.30-5.70); WHITE BLOOD COUNT 23.1 x10^3/uL (4.0-11.0)
[2021-04-30] MEDS: ASPIRIN ENTERIC COATED 81 MG TABLET.DR. PO SCH (08:00)
[2021-04-30 08:07] LABS: BASE EXCESS ABG 0 mmol/L (-3-3); HCO3 ABG 24 mmol/L (21-28); PCO2 ABG 38 mmHg (35-46); PO2 ABG 71 mmHg (65-108); SAT O2 ABG 94 % (92-99)
[2021-04-30 08:10] LABS: FIO2 ABG 45
[2021-04-30] MEDS: PROPOFOL 100 ML IV PRN ×4 (09:29→23:56)
--- NOTE | 2021-04-30 10:31 | PDOC ---
PULMONARY PROGRESS NOTES DATE: 04/30/21 TIME: 10:27 Subjective Patient undergoing dialysis. Mild paradoxical breathing noted. Assist control mode 45% and a PEEP of 5 COVID-19 positive Sedated with propofol and fentanyl, remains on heparin drip Vitals Vital Signs Date Time Temp Pulse Resp B/P (MAP) Pulse Ox O2 Delivery O2 Flow Rate FiO2 04/30/21 09:43 20 97 Ventilator 04/30/21 09:00 64 185/70 (108) 04/30/21 07:12 97.2 97.2 Comments Visual exam done due to COVID-19. Intubated and sedated No paradoxical breathing. Labs Laboratory Tests Test 04/28/21 12:56 04/28/21 15:50 04/28/21 16:54 04/28/21 17:00 Glucose (Fingerstick) 249 mg/dL (70-99) 246 mg/dL (70-99) Hepatitis B Surface Antigen Nonreactive (Nonreactive) Hepatitis B Surface Antibody, Quant <3.1 mIU/mL (Immunity>9.9) Urine Collection Type Unknown Urine Color Yellow Urine Clarity Clear Urine pH 5.5 (<5.0-8.0) Urine Specific [place] 1.020 (1.000-1.030) Urine Protein >=300 mg/dL (NEG-TRACE) Urine Glucose (UA) 100 mg/dL (NEG) Urine Ketones (Stick) Negative mg/dL (NEG) Urine Blood Small (NEG) Urine Nitrite Negative (NEG) Urine Bilirubin Negative (NEG) Urine Urobilinogen Dipstick 0.2 mg/dL (0.2 mg/dL) Urine Leukocyte Esterase Negative (NEG) Urine RBC 0 /HPF (0-2) Urine WBC 0 /HPF (0-4) Urine Bacteria 0 /HPF (0-FEW) Test 04/28/21 23:53 04/29/21 05:50 04/29/21 05:51 04/29/21 06:00 Glucose (Fingerstick) 224 mg/dL (70-99) 292 mg/dL (70-99) White Blood Count 20.4 x10^3/uL (4.0-11.0) Red Blood Count 3.27 x10^6/uL (4.30-5.70) Hemoglobin 8.6 g/dL (13.0-17.5) Hematocrit 26.9 % (39.0-53.0) Mean Corpuscular Volume 82 fL (79-100) Mean Corpuscular Hemoglobin 26 pg (25-35) Mean Corpuscular Hemoglobin Concent 32 g/dL (31-37) Red Cell Distribution Width 15.9 % (11.5-14.5) Platelet Count 201 x10^3/uL (140-400) Heparin Anti-Xa Act, Unfractionated 0.43 IU/mL (0.30-0.70) Sodium Level 139 mmol/L (136-145) Potassium Level 4.0 mmol/L (3.5-5.1) Chloride Level 103 mmol/L (98-107) Carbon Dioxide Level 29 mmol/L (21-32) Anion Gap 7 (6-14) Blood Urea Nitrogen 56 mg/dL (8-26) Creatinine 3.2 mg/dL (0.7-1.3) Estimated GFR (Cockcroft-Gault) 23.1 Glucose Level 289 mg/dL (70-99) Calcium Level 7.1 mg/dL (8.5-10.1) Test 04/29/21 09:25 04/29/21 12:58 04/29/21 16:51 04/29/21 22:25 O2 Saturation 93 % (92-99) Arterial Blood pH 7.42 (7.35-7.45) Arterial Blood pCO2 at Patient Temp 33 mmHg (35-46) Arterial Blood pO2 at Patient Temp 70 mmHg (65-108) Arterial Blood HCO3 21 mmol/L (21-28) Arterial Blood Base Excess -3 mmol/L (-3-3) FiO2 Ac 20 Glucose (Fingerstick) 232 mg/dL (70-99) 243 mg/dL (70-99) 296 mg/dL (70-99) Test 04/30/21 00:20 04/30/21 06:20 04/30/21 06:22 04/30/21 08:00 Glucose (Fingerstick) 270 mg/dL (70-99) 276 mg/dL (70-99) White Blood Count 23.1 x10^3/uL (4.0-11.0) Red Blood Count 3.33 x10^6/uL (4.30-5.70) Hemoglobin 8.7 g/dL (13.0-17.5) Hematocrit 27.2 % (39.0-53.0) Mean Corpuscular Volume 82 fL (79-100) Mean Corpuscular Hemoglobin 26 pg (25-35) Mean Corpuscular Hemoglobin Concent 32 g/dL (31-37) Red Cell Distribution Width 16.0 % (11.5-14.5) Platelet Count 243 x10^3/uL (140-400) Neutrophils (%) (Auto) 87 % (31-73) Lymphocytes (%) (Auto) 6 % (24-48) Monocytes (%) (Auto) 7 % (0-9) Eosinophils (%) (Auto) 0 % (0-3) Basophils (%) (Auto) 0 % (0-3) Neutrophils # (Auto) 20.1 x10^3/uL (1.8-7.7) Lymphocytes # (Auto) 1.3 x10^3/uL (1.0-4.8) Monocytes # (Auto) 1.6 x10^3/uL (0.0-1.1) Eosinophils # (Auto) 0.0 x10^3/uL (0.0-0.7) Basophils # (Auto) 0.1 x10^3/uL (0.0-0.2) Heparin Anti-Xa Act, Unfractionated 0.38 IU/mL (0.30-0.70) Sodium Level 138 mmol/L (136-145) Potassium Level 3.8 mmol/L (3.5-5.1) Chloride Level 103 mmol/L (98-107) Carbon Dioxide Level 28 mmol/L (21-32) Anion Gap 7 (6-14) Blood Urea Nitrogen 74 mg/dL (8-26) Creatinine 3.6 mg/dL (0.7-1.3) Estimated GFR (Cockcroft-Gault) 20.2 Glucose Level 267 mg/dL (70-99) Calcium Level 7.7 mg/dL (8.5-10.1) Phosphorus Level 3.9 mg/dL (2.6-4.7) Magnesium Level 2.3 mg/dL (1.8-2.4) Albumin 1.5 g/dL (3.4-5.0) O2 Saturation 94 % (92-99) Arterial Blood pH 7.42 (7.35-7.45) Arterial Blood pCO2 at Patient Temp 38 mmHg (35-46) Arterial Blood pO2 at Patient Temp 71 mmHg (65-108) Arterial Blood HCO3 24 mmol/L (21-28) Arterial Blood Base Excess 0 mmol/L (-3-3) FiO2 45 Laboratory Tests Test 04/29/21 12:58 04/29/21 16:51 04/29/21 22:25 04/30/21 00:20 Glucose (Fingerstick) 232 mg/dL (70-99) 243 mg/dL (70-99) 296 mg/dL (70-99) 270 mg/dL (70-99) Test 04/30/21 06:20 04/30/21 06:22 04/30/21 08:00 White Blood Count 23.1 x10^3/uL (4.0-11.0) Red Blood Count 3.33 x10^6/uL (4.30-5.70) Hemoglobin 8.7 g/dL (13.0-17.5) Hematocrit 27.2 % (39.0-53.0) Mean Corpuscular Volume 82 fL (79-100) Mean Corpuscular Hemoglobin 26 pg (25-35) Mean Corpuscular Hemoglobin Concent 32 g/dL (31-37) Red Cell Distribution Width 16.0 % (11.5-14.5) Platelet Count 243 x10^3/uL (140-400) Neutrophils (%) (Auto) 87 % (31-73) Lymphocytes (%) (Auto) 6 % (24-48) Monocytes (%) (Auto) 7 % (0-9) Eosinophils (%) (Auto) 0 % (0-3) Basophils (%) (Auto) 0 % (0-3) Neutrophils # (Auto) 20.1 x10^3/uL (1.8-7.7) Lymphocytes # (Auto) 1.3 x10^3/uL (1.0-4.8) Monocytes # (Auto) 1.6 x10^3/uL (0.0-1.1) Eosinophils # (Auto) 0.0 x10^3/uL (0.0-0.7) Basophils # (Auto) 0.1 x10^3/uL (0.0-0.2) Heparin Anti-Xa Act, Unfractionated 0.38 IU/mL (0.30-0.70) Sodium Level 138 mmol/L (136-145) Potassium Level 3.8 mmol/L (3.5-5.1) Chloride Level 103 mmol/L (98-107) Carbon Dioxide Level 28 mmol/L (21-32) Anion Gap 7 (6-14) Blood Urea Nitrogen 74 mg/dL (8-26) Creatinine 3.6 mg/dL (0.7-1.3) Estimated GFR (Cockcroft-Gault) 20.2 Glucose Level 267 mg/dL (70-99) Calcium Level 7.7 mg/dL (8.5-10.1) Phosphorus Level 3.9 mg/dL (2.6-4.7) Magnesium Level 2.3 mg/dL (1.8-2.4) Albumin 1.5 g/dL (3.4-5.0) Glucose (Fingerstick) 276 mg/dL (70-99) O2 Saturation 94 % (92-99) Arterial Blood pH 7.42 (7.35-7.45) Arterial Blood pCO2 at Patient Temp 38 mmHg (35-46) Arterial Blood pO2 at Patient Temp 71 mmHg (65-108) Arterial Blood HCO3 24 mmol/L (21-28) Arterial Blood Base Excess 0 mmol/L (-3-3) FiO2 45 Medications Active Scripts Medications Dose Route/Sig Max Daily Dose Days Date Category Glyburide 2.5 Mg Tablet 1 Tab PO DAILY 04/19/21 Rx Polyethylene Glycol 3350 17 Gm Powd.pack 17 Gm PO DAILY 04/19/21 Rx Dok (Docusate Sodium) 100 Mg Capsule 100 Mg PO PRN DAILY PRN 04/19/21 Rx Bisacodyl 5 Mg Tablet.dr 5 Mg PO PRN DAILY PRN 04/19/21 Rx Acetaminophen 325 Mg Tablet 650 Mg PO PRN Q4HRS PRN 04/19/21 Rx Aspirin Ec (Aspirin) 81 Mg Tablet. 81 Mg PO [id number] 04/19/21 Rx Hydralazine Hcl 25 Mg Tablet 25 Mg PO QID 04/19/21 Rx Fenofibrate 54 Mg Tablet 1 Tab PO DAILY 04/17/21 Reported Potassium Chloride (Potassium Chloride) 20 Meq Tablet.er 20 Meq PO DAILY 04/17/21 Reported Coreg (Carvedilol) 12.5 Mg Tablet 37.5 Mg PO BIDWMEALS 04/17/21 Reported Rosuvastatin Calcium 40 Mg Tablet 40 Mg PO QHS 04/17/21 Reported Gabapentin (Gabapentin) 100 Mg Capsule 200 Mg PO BID 04/17/21 Reported Montelukast Sodium Tablet (Montelukast Sodium) 10 Mg Tablet 10 Mg PO HS 04/17/21 Reported Protonix (Pantoprazole Sodium) 20 Mg Tablet.dr 2 Tab PO DAILY 04/17/21 Reported Amlodipine Besylate 5 Mg Tablet 5 Mg PO DAILY 04/17/21 Reported Furosemide 40 Mg Tablet 1 Tab PO DAILY 04/17/21 Reported Proair Hfa Inhaler (Albuterol Sulfate) 8.5 Gm Hfa.aer.ad 2 Puff IH PRN Q4-6HRS PRN 21 04/16/21 Reported Advair 100-50 Diskus (Fluticasone/Salmeterol) 1 Each Disk.w.dev 1 Puff IH BID 04/16/21 Reported Comments Chest x-ray 04/30 reviewed. Bilateral improving infiltrates as well as improving pleural effusion. Chest x-ray reviewed 04/27. Worsening CHF Impression . IMPRESSION: 1. Acute hypoxic respiratory failure secondary to bilateral diffuse interstitial infiltrates. --COVID-[address] chest with bilateral diffuse interstitial infiltrates without any significant pleural effusion. Consistent with viral pneumonia. 3. History of recent hospitalization for abdominal pain. He was supposed to have cardiac testing and outpatient stress test. Now, he is hospitalized. Echo with normal ejection fraction and moderate left ventricular hypertrophy. 4. Abnormal troponin, likely [id number] elevation myocardial infarction. 5. History of tobacco use, details of length not available. 6. Chronic kidney disease. Worsening ILDA on CKD, on HD now 7. Increasing metabolic acidosis secondary to ILDA. Improved with hemodialysis. 8. , improving infiltrates 04/30 chest x-ray Plan . Updated 04/30/2021 Continue current vent support assist-control mode 20/500/45%/5 Once down to 40% FiO2, will try weaning sedation and assess mental status. Currently having some paradoxical breathing. Will increase sedation. Add as n eeded paralytics. ABG/chest x-ray reviewed, Continue empiric antibiotics with cefepime. Continue steroids. Leukocytosis without fever likely related to steroids. Continue remdesivir Follow cardiology recommendations continue heparin drip Follow nephrology recs . Dialysis with increased ultrafiltration today. COVID-19 positive Tolerating tube feeding Discussed with nephrology. Patient initiated on hemodialysis. DVT/GI prophylaxis Discussed with RN and RT Critical care time 30 minutes Updated 04/29/2021 Continue current vent support assist-control mode 20/500/45%/5 Once down to 40% FiO2, will try weaning sedation and assess mental status. ABG/chest x-ray reviewed, Continue empiric antibiotics with cefepime Continue steroids Continue remdesivir Follow cardiology recommendations continue heparin drip Follow nephrology recs . Dialysis with increased ultrafiltration today. COVID-19 positive Initiated on tube feeding Discussed with nephrology. Patient initiated on hemodialysis. DVT/GI prophylaxis Discussed with RN and RT Critical care time 30 minutes Updated 04/28/2021 Continue current vent support assist-control mode 26/500/50%/5 Once down to 40% FiO2, will try weaning sedation and assess mental status. ABG/chest x-ray reviewed, Continue empiric antibiotics with cefepime Continue steroids Continue remdesivir Follow cardiology recommendations continue heparin drip Follow nephrology recs . Dialysis with increased ultrafiltration today. COVID-19 positive Initiated on tube feeding Discussed with nephrology. DVT/GI prophylaxis Discussed with RN and RT Critical care time 30 minutes Updated 04/27/2021 Continue current vent support assist-control mode 26/500/50%/5 Once down to 40% FiO2, will try weaning sedation and assess mental status. ABG/chest x-ray reviewed, Continue empiric antibiotics with cefepime Continue steroids Continue remdesivir Follow cardiology recommendations continue heparin drip Follow nephrology recs COVID-19 positive Initiated on tube feeding Discussed with nephrology. Will be planning for hemodialysis catheter placement to correct metabolic acidosis as well as congestive heart failure DVT/GI prophylaxis Discussed with RN and RT Critical care time 30 minutes Updated 04/26/2021 Continue current vent support assist-control mode 26/500/50%/5 Once down to 40% FiO2, will try weaning sedation and assess mental status. ABG/chest x-ray reviewed, Continue empiric antibiotics with cefepime Continue steroids Continue remdesivir Follow cardiology recommendations continue heparin drip Follow nephrology recs COVID-19 positive Initiated on tube feeding DVT/GI prophylaxis Discussed with RN and RT Critical care time 30 minutes Updated 04/25/2021 Continue current vent support assist-control mode 26/500/50%/5 ABG/chest x-ray reviewed, reduce respiratory rate to 20 Continue empiric antibiotics with cefepime Continue steroids Continue remdesivir Follow cardiology recommendations continue heparin drip Follow nephrology recs COVID-19 positive Consult dietitian to initiate tube feeding DVT/GI prophylaxis Discussed with RN and RT Critical care time 35 minutes RECOMMENDATIONS: 1. Continue present assist control mode and follow ABGs and make necessary adjustments. 2. The patient is status post diuresis. We will follow chest x-ray. 3. Monitor renal function while on diuresis. 4. Continue empiric antibiotic. 5. Rule out COVID viral pneumonia. 6. Continue heparin per protocol for non-STEMI. 7. Continue sedation. 8. Follow all cultures. 9. Discussed with RN, chart reviewed, imaging studies reviewed. Total critical care time 35 minutes. We will follow along with you. JONES FISHMAN MD Apr 30, 2021 10:31
--- NOTE | 2021-04-30 11:02 | PDOC ---
Renal-Progress Notes Subjective Notes Notes ON THE VENT History of Present Illness Hx of present illness STABLE BUT CRITICALLY ILL Vitals Vitals Vital Signs Date Time Temp Pulse Resp B/P (MAP) Pulse Ox O2 Delivery O2 Flow Rate FiO2 04/30/21 10:00 96 20 163/77 (105) 97 Ventilator 04/30/21 07:12 97.2 97.2 Weight Weight [ ] I.O. Intake and Output Intake and Output 04/30/21 07:00 Intake Total 2767 ml Output Total 1195 ml Balance 1572 ml IV Total 756 ml Tube Feeding 1691 ml Other 320 ml Output Urine Total 1195 ml Labs Labs Laboratory Tests Test 04/29/21 12:58 04/29/21 16:51 04/29/21 22:25 04/30/21 00:20 Glucose (Fingerstick) 232 mg/dL (70-99) 243 mg/dL (70-99) 296 mg/dL (70-99) 270 mg/dL (70-99) Test 04/30/21 06:20 04/30/21 06:22 04/30/21 08:00 White Blood Count 23.1 x10^3/uL (4.0-11.0) Red Blood Count 3.33 x10^6/uL (4.30-5.70) Hemoglobin 8.7 g/dL (13.0-17.5) Hematocrit 27.2 % (39.0-53.0) Mean Corpuscular Volume 82 fL (79-100) Mean Corpuscular Hemoglobin 26 pg (25-35) Mean Corpuscular Hemoglobin Concent 32 g/dL (31-37) Red Cell Distribution Width 16.0 % (11.5-14.5) Platelet Count 243 x10^3/uL (140-400) Neutrophils (%) (Auto) 87 % (31-73) Lymphocytes (%) (Auto) 6 % (24-48) Monocytes (%) (Auto) 7 % (0-9) Eosinophils (%) (Auto) 0 % (0-3) Basophils (%) (Auto) 0 % (0-3) Neutrophils # (Auto) 20.1 x10^3/uL (1.8-7.7) Lymphocytes # (Auto) 1.3 x10^3/uL (1.0-4.8) Monocytes # (Auto) 1.6 x10^3/uL (0.0-1.1) Eosinophils # (Auto) 0.0 x10^3/uL (0.0-0.7) Basophils # (Auto) 0.1 x10^3/uL (0.0-0.2) Heparin Anti-Xa Act, Unfractionated 0.38 IU/mL (0.30-0.70) Sodium Level 138 mmol/L (136-145) Potassium Level 3.8 mmol/L (3.5-5.1) Chloride Level 103 mmol/L (98-107) Carbon Dioxide Level 28 mmol/L (21-32) Anion Gap 7 (6-14) Blood Urea Nitrogen 74 mg/dL (8-26) Creatinine 3.6 mg/dL (0.7-1.3) Estimated GFR (Cockcroft-Gault) 20.2 Glucose Level 267 mg/dL (70-99) Calcium Level 7.7 mg/dL (8.5-10.1) Phosphorus Level 3.9 mg/dL (2.6-4.7) Magnesium Level 2.3 mg/dL (1.8-2.4) Albumin 1.5 g/dL (3.4-5.0) Glucose (Fingerstick) 276 mg/dL (70-99) O2 Saturation 94 % (92-99) Arterial Blood pH 7.42 (7.35-7.45) Arterial Blood pCO2 at Patient Temp 38 mmHg (35-46) Arterial Blood pO2 at Patient Temp 71 mmHg (65-108) Arterial Blood HCO3 24 mmol/L (21-28) Arterial Blood Base Excess 0 mmol/L (-3-3) FiO2 45 Micro Micro Microbiology 04/24/21 Blood Culture - Final, Complete NO GROWTH AFTER 5 DAYS Review of Systems Constitutional: yes: unresponsive, other (UNABLE TO OBTAIN) Physical Exam General Appearance: other (ON THE VENT) Respiratory: decreased breath sounds Heart: S1S2 Abdomen: bowel sounds present Genitourinary: bladder flat Extremities: atrophy Neurology: other (sedated) Musculoskeletal: Other Assessment Assessment IMP ILDA-ATN CKD - SUSPECT STAGE 3 ACUTE HYPOXIC RESP FAILURE COVID 19 PNEUMONIA MET ACIDOSIS-BETTER LEUCOCYTOSIS ANEMIA PLAN REMAINS CRITICALLY ILL VENT SUPPORT NUTRITION-TF HOLD BETTY DUE TO HYPERCOAGULABLE STATE PRESSORS STEROIDS HD TODAY UF TOLERATED CONT TO MONITOR FOR RENAL RECOVERY WILL FOLLOW NEWTON,JEANINE S MD Apr 30, 2021 11:02
[2021-04-30] MEDS ORDERED: DIALYSIS PATIENT. MC PRN (12:30)
[2021-04-30] MEDS: DEXAMETHASONE SOD PHOS 4 MG/ML VIAL IVP SCH (12:42)
[2021-04-30] MEDS: PANTOPRAZOLE IV PUSH 40 MG VIAL. IVP SCH (12:43)
[2021-04-30] MEDS: CEFEPIME HCL IV Push 1 GM VIAL. IVP SCH (12:44)
[2021-04-30] MEDS: AMIODARONE HCL 200 MG TABLET. PO SCH (12:44)
--- NOTE | 2021-04-30 13:01 | PDOC ---
[employer] PROGRESS NOTE Date of Service DOS: DATE: 04/30/21 TIME: 12:58 Chief Complaint Chief Complaint Respiratory failure requiring intubation COVID-19 Acute NM A. fib SIRS Hypertension with hypertensive urgency Hyperlipidemia CKD Diabetes History of bilateral subclavian stenosis History of marijuana use Severe protein calorie malnutrition History of Present Illness History of Present Illness 04/30/2020 Patient seen and examined in the [facility]- ICU He remains on the vent AC/20/500/40 5% with 5 PEEP Currently on dialysis Has OG feeds running Has a Nieves to bedside drainage Sedated with propofol and fentanyl Reviewed chart Discussed with RN He remains critically ill Mr Cunha is a 75 yo male w/ PMHx CAD, HTN, Hyperlipidemia, subclavian steel syndrome, subclavian stenosis s/p left subclavian sent placement complicated by retroperitoneal hematoma s/p evacuation in 08/2015), asthma, BART, CKD, DM2 who presented from home with home health care noted that he was short of breath and valverde with O2 saturations less than 89% as low as 84% not improved with nasal cannulated oxygen placed on CPAP and brought to ED for further care. He was just discharged from the hospital a week ago on April 19, 2021 for abdominal pain and was going for further cardiac testing with outpatient stress testing scheduled on May 28, 2021. Had echocardiogram April 17, 2021 with normal-appearing EF with moderate concentric LVH no significant valvular abnormalities. WBC 20, Hb 10.7, platelets 268, NA 140, K3.8, BUN 21, CR 2.9, glucose 162, albumin 3, troponin I 1.372, NT proBNP 33,318. EKG appears sinus tachycardia rate of 105 bpm with multiple PACs small ST depressions in lead II and V5. TWI in V6. Chest radiograph with diffuse interstitial and alveolar opacities and ET tube 5.8 cm above the leilani. Due to worsening respiratory status ED physician elected to intubate patient. Seen postintubation. Blood pressure little low after propofol bolus, but improved. Significant white frothy sputum per ET tube. Admitted to ICU for further care 04/29/2021: Afebrile, remains on vent at FiO2 45%, PEEP 5. WBC 20.4. Hemodialysis per nephrology. We will continue treatment with empiric antibiot ics, remdesivir, and steroids. Continue heparin infusion and supportive care. Critical care time 30 minutes reviewing chart, review labs, review imaging, discussion with RN. 04/28/2021: Afebrile. FiO2 50%, PEEP 5. Nontunneled HD catheter placed yesterda y due to worsening kidney function; eGFR 16 (CKD4). Chest x-ray showed unchanged interstitial opacities. Continue empiric antibiotics, steroids, and remdesivir. Continue heparin infusion, and continue to follow cardiology recommendations on new diagnosis of A. fib. Critical care time 30 minutes reviewing chart, review labs, review imaging, discussion with RN. 04/27/2021: Afebrile. On vent with FiO2 50%, PEEP 5. Troponin 2.8 yesterday; probable type II, demand ischemia. New onset A. fib. Continue heparin drip and as needed digoxin, per cardiology. Continue treatment with remdesivir, steroids, and prophylactic antibiotics. CBG 323 this morning; will add basal insulin. Critical care 30 minutes spent reviewing labs, reviewing imaging, reviewing charts, and discussion with RN. 04/26/2021: COVID-19 positive. Febrile overnight that was managed with cooling blankets. On vent with FiO2 50%, PEEP 5. Per cardiology, elevated troponins likely secondary to demand ischemia; continue heparin drip per cardiology. Maintain fluid balance and avoid nephrotoxins. Continue treatment with remdesivir, steroids, and prophylactic antibiotics. 30 minutes critical care time spent reviewing charts, reviewing labs, reviewing imaging, and discussion with RN. 04/25/2021: On vent FiO2 50, PEEP 5. Febrile, T-max 103.3. Patient was initiated on cooling blankets. Procalcitonin 0.13. Continue coverage for hospital-acquired pneumonia with cefepime. MRSA PCR pending. Critical care time 30 minutes spent reviewing charts, reviewing labs, review of imaging, discussion with RN. Vitals/I&O Vitals/I&O: Vital Signs Date Time Temp Pulse Resp B/P (MAP) Pulse Ox O2 Delivery O2 Flow Rate FiO2 04/30/21 12:44 86 134/62 04/30/21 12:08 Mechanical Ventilator 04/30/21 11:37 96 04/30/21 11:09 20 04/30/21 07:12 97.2 97.2 I & O 04/29/21 04/29/21 04/30/21 15:00 23:00 07:00 Intake Total 430 ml 979 ml 1358 ml Output Total 400 ml 300 ml 495 ml Balance 30 ml 679 ml 863 ml Physical Exam General: Other (Intubated sedated) Heart: Other (Tachycardic) Abdomen: Soft, Other (obese) Extremities: Other (trace LE edema ) Skin: No rashes, No breakdown, No significant lesion Labs Labs: Laboratory Tests Test 04/29/21 16:51 04/29/21 22:25 04/30/21 00:20 04/30/21 06:20 Glucose (Fingerstick) 243 mg/dL (70-99) 296 mg/dL (70-99) 270 mg/dL (70-99) White Blood Count 23.1 x10^3/uL (4.0-11.0) Red Blood Count 3.33 x10^6/uL (4.30-5.70) Hemoglobin 8.7 g/dL (13.0-17.5) Hematocrit 27.2 % (39.0-53.0) Mean Corpuscular Volume 82 fL (79-100) Mean Corpuscular Hemoglobin 26 pg (25-35) Mean Corpuscular Hemoglobin Concent 32 g/dL (31-37) Red Cell Distribution Width 16.0 % (11.5-14.5) Platelet Count 243 x10^3/uL (140-400) Neutrophils (%) (Auto) 87 % (31-73) Lymphocytes (%) (Auto) 6 % (24-48) Monocytes (%) (Auto) 7 % (0-9) Eosinophils (%) (Auto) 0 % (0-3) Basophils (%) (Auto) 0 % (0-3) Neutrophils # (Auto) 20.1 x10^3/uL (1.8-7.7) Lymphocytes # (Auto) 1.3 x10^3/uL (1.0-4.8) Monocytes # (Auto) 1.6 x10^3/uL (0.0-1.1) Eosinophils # (Auto) 0.0 x10^3/uL (0.0-0.7) Basophils # (Auto) 0.1 x10^3/uL (0.0-0.2) Heparin Anti-Xa Act, Unfractionated 0.38 IU/mL (0.30-0.70) Sodium Level 138 mmol/L (136-145) Potassium Level 3.8 mmol/L (3.5-5.1) Chloride Level 103 mmol/L (98-107) Carbon Dioxide Level 28 mmol/L (21-32) Anion Gap 7 (6-14) Blood Urea Nitrogen 74 mg/dL (8-26) Creatinine 3.6 mg/dL (0.7-1.3) Estimated GFR (Cockcroft-Gault) 20.2 Glucose Level 267 mg/dL (70-99) Calcium Level 7.7 mg/dL (8.5-10.1) Phosphorus Level 3.9 mg/dL (2.6-4.7) Magnesium Level 2.3 mg/dL (1.8-2.4) Albumin 1.5 g/dL (3.4-5.0) Test 04/30/21 06:22 04/30/21 08:00 04/30/21 12:47 Glucose (Fingerstick) 276 mg/dL (70-99) 131 mg/dL (70-99) O2 Saturation 94 % (92-99) Arterial Blood pH 7.42 (7.35-7.45) Arterial Blood pCO2 at Patient Temp 38 mmHg (35-46) Arterial Blood pO2 at Patient Temp 71 mmHg (65-108) Arterial Blood HCO3 24 mmol/L (21-28) Arterial Blood Base Excess 0 mmol/L (-3-3) FiO2 45 Assessment and Plan Assessmemt and Plan Problems Medical Problems: (1) Elevated troponin Status: Acute (2) Person under investigation for COVID-19 Status: Acute (3) Pulmonary edema Status: Acute Respiratory failure requiring intubation COVID-19 Acute NM A. fib SIRS Hypertension with hypertensive urgency Hyperlipidemia CKD Diabetes History of bilateral subclavian stenosis History of marijuana use Severe protein calorie malnutrition Plan Covid protocol ICU monitoring Respiratory isolation Vent weaning Home meds Trend labs DVT prophylaxis Full code Appreciate subspecialist input Prognosis guarded CC time 31-minute Comment Review of Relevant I have reviewed the following items juanita (where applicable) has been applied. Justifications for Admission General Conditions Altered mental status?: Yes Justification of admission: Patient has tachycardia (> 100 beats per minute) or hypotension (SBP < 90 mm Hg) leading to inadequate systemic perfusion as indicated by severe/persistent altered mental status. Other Justification ELENI RENTERIA III DO Apr 30, 2021 13:01
--- NOTE | 2021-04-30 13:48 | RAD ---
XR CHEST 1V INDICATION: RF COVID / Spl. Instructions: / History: . COMPARISON STUDY: 04/27/2021. FINDINGS: Life Support Devices: Stable endotracheal tube, enteric tube, right IJ dual-lumen catheter, right IJ central venous catheter. Lungs: Low lung volume. Stable left greater than right basilar predominate opacities. Pleura: Stable small left greater than right pleural effusions. Heart and Mediastinum: Stable cardiomediastinal silhouette and great vessels. Bones and Soft Tissues: Stable regional skeleton and soft tissues. IMPRESSION: 1. Stable life support devices. 2. Stable left greater than right basilar predominant opacities. 3. Stable small left greater than right pleural effusions. Electronically signed by: Spenser Vanegas MD (04/30/2021 1:46 PM) [id number]
--- NOTE | 2021-04-30 15:01 | NUR ---
SS following up with discharge planning. SS reviewed pt chart and discussed with pt RN. Pt is currently on the vent at 45%. COVID19 positive. Pt on IV Cefepime. Hemodialysis today. Pt on Propofol, Versed, and Fentanyl. Not stable. SS will continue to follow for discharge planning.
--- NOTE | 2021-04-30 17:08 | PDOC ---
PROGRESS NOTES Date of Service DATE: 04/30/21 TIME: 17:06 Subjective Subjective Patient seen and evaluated Objective Objective Vital Signs Date Time Temp Pulse Resp B/P (MAP) Pulse Ox O2 Delivery O2 Flow Rate FiO2 04/30/21 16:34 97 Ventilator 04/30/21 16:03 97.9 57 20 163/71 (101) 97.9 Intake and Output 04/30/21 07:00 Intake Total 2767 ml Output Total 1195 ml Balance 1572 ml IV Total 756 ml Tube Feeding 1691 ml Other 320 ml Output Urine Total 1195 ml Physical Exam Physical Exam Visual examination secondary to Covid status. Assessment Assessment Problems Medical Problems: (1) Elevated troponin Status: Acute (2) Person under investigation for COVID-19 Status: Acute (3) Pulmonary edema Status: Acute Acute respiratory failure secondary to CHF, s/p intubation. COVID +. Continues on a vent. Followed by pulmonary and ID. Acute on chronic diastolic CHF. Hypertensive urgency; controlled, levophed if needed for hypotension. NSTEMI; trop highest 2.8. Echo last week with preserved LV systolic function with moderate LVH. Most probable type II, demand ischemia in setting of above, although underling ischemic cannot be ruled out Possible history of CAD; details unknown Hyperlipidemia; statin ILDA on CKD; per nephrology. Creatinine increased to 3.6. Potassium 3.8. Diabetes, II New AFIB with RVR: currently SR. continue present medications and monitoring. Comment Review of Relevant I have reviewed the following items juanita (where applicable) has been applied. Labs Laboratory Tests Test 04/28/21 23:53 04/29/21 05:50 04/29/21 05:51 04/29/21 06:00 Glucose (Fingerstick) 224 mg/dL (70-99) 292 mg/dL (70-99) White Blood Count 20.4 x10^3/uL (4.0-11.0) Red Blood Count 3.27 x10^6/uL (4.30-5.70) Hemoglobin 8.6 g/dL (13.0-17.5) Hematocrit 26.9 % (39.0-53.0) Mean Corpuscular Volume 82 fL (79-100) Mean Corpuscular Hemoglobin 26 pg (25-35) Mean Corpuscular Hemoglobin Concent 32 g/dL (31-37) Red Cell Distribution Width 15.9 % (11.5-14.5) Platelet Count 201 x10^3/uL (140-400) Heparin Anti-Xa Act, Unfractionated 0.43 IU/mL (0.30-0.70) Sodium Level 139 mmol/L (136-145) Potassium Level 4.0 mmol/L (3.5-5.1) Chloride Level 103 mmol/L (98-107) Carbon Dioxide Level 29 mmol/L (21-32) Anion Gap 7 (6-14) Blood Urea Nitrogen 56 mg/dL (8-26) Creatinine 3.2 mg/dL (0.7-1.3) Estimated GFR (Cockcroft-Gault) 23.1 Glucose Level 289 mg/dL (70-99) Calcium Level 7.1 mg/dL (8.5-10.1) Test 04/29/21 09:25 04/29/21 12:58 04/29/21 16:51 04/29/21 22:25 O2 Saturation 93 % (92-99) Arterial Blood pH 7.42 (7.35-7.45) Arterial Blood pCO2 at Patient Temp 33 mmHg (35-46) Arterial Blood pO2 at Patient Temp 70 mmHg (65-108) Arterial Blood HCO3 21 mmol/L (21-28) Arterial Blood Base Excess -3 mmol/L (-3-3) FiO2 Ac 20 Glucose (Fingerstick) 232 mg/dL (70-99) 243 mg/dL (70-99) 296 mg/dL (70-99) Test 04/30/21 00:20 04/30/21 06:20 04/30/21 06:22 04/30/21 08:00 Glucose (Fingerstick) 270 mg/dL (70-99) 276 mg/dL (70-99) White Blood Count 23.1 x10^3/uL (4.0-11.0) Red Blood Count 3.33 x10^6/uL (4.30-5.70) Hemoglobin 8.7 g/dL (13.0-17.5) Hematocrit 27.2 % (39.0-53.0) Mean Corpuscular Volume 82 fL (79-100) Mean Corpuscular Hemoglobin 26 pg (25-35) Mean Corpuscular Hemoglobin Concent 32 g/dL (31-37) Red Cell Distribution Width 16.0 % (11.5-14.5) Platelet Count 243 x10^3/uL (140-400) Neutrophils (%) (Auto) 87 % (31-73) Lymphocytes (%) (Auto) 6 % (24-48) Monocytes (%) (Auto) 7 % (0-9) Eosinophils (%) (Auto) 0 % (0-3) Basophils (%) (Auto) 0 % (0-3) Neutrophils # (Auto) 20.1 x10^3/uL (1.8-7.7) Lymphocytes # (Auto) 1.3 x10^3/uL (1.0-4.8) Monocytes # (Auto) 1.6 x10^3/uL (0.0-1.1) Eosinophils # (Auto) 0.0 x10^3/uL (0.0-0.7) Basophils # (Auto) 0.1 x10^3/uL (0.0-0.2) Heparin Anti-Xa Act, Unfractionated 0.38 IU/mL (0.30-0.70) Sodium Level 138 mmol/L (136-145) Potassium Level 3.8 mmol/L (3.5-5.1) Chloride Level 103 mmol/L (98-107) Carbon Dioxide Level 28 mmol/L (21-32) Anion Gap 7 (6-14) Blood Urea Nitrogen 74 mg/dL (8-26) Creatinine 3.6 mg/dL (0.7-1.3) Estimated GFR (Cockcroft-Gault) 20.2 Glucose Level 267 mg/dL (70-99) Calcium Level 7.7 mg/dL (8.5-10.1) Phosphorus Level 3.9 mg/dL (2.6-4.7) Magnesium Level 2.3 mg/dL (1.8-2.4) Albumin 1.5 g/dL (3.4-5.0) O2 Saturation 94 % (92-99) Arterial Blood pH 7.42 (7.35-7.45) Arterial Blood pCO2 at Patient Temp 38 mmHg (35-46) Arterial Blood pO2 at Patient Temp 71 mmHg (65-108) Arterial Blood HCO3 24 mmol/L (21-28) Arterial Blood Base Excess 0 mmol/L (-3-3) FiO2 45 Test 7/26/21 12:47 Glucose (Fingerstick) 131 mg/dL (70-99) Laboratory Tests Test 04/29/21 22:25 04/30/21 00:20 04/30/21 06:20 04/30/21 06:22 Glucose (Fingerstick) 296 mg/dL (70-99) 270 mg/dL (70-99) 276 mg/dL (70-99) White Blood Count 23.1 x10^3/uL (4.0-11.0) Red Blood Count 3.33 x10^6/uL (4.30-5.70) Hemoglobin 8.7 g/dL (13.0-17.5) Hematocrit 27.2 % (39.0-53.0) Mean Corpuscular Volume 82 fL (79-100) Mean Corpuscular Hemoglobin 26 pg (25-35) Mean Corpuscular Hemoglobin Concent 32 g/dL (31-37) Red Cell Distribution Width 16.0 % (11.5-14.5) Platelet Count 243 x10^3/uL (140-400) Neutrophils (%) (Auto) 87 % (31-73) Lymphocytes (%) (Auto) 6 % (24-48) Monocytes (%) (Auto) 7 % (0-9) Eosinophils (%) (Auto) 0 % (0-3) Basophils (%) (Auto) 0 % (0-3) Neutrophils # (Auto) 20.1 x10^3/uL (1.8-7.7) Lymphocytes # (Auto) 1.3 x10^3/uL (1.0-4.8) Monocytes # (Auto) 1.6 x10^3/uL (0.0-1.1) Eosinophils # (Auto) 0.0 x10^3/uL (0.0-0.7) Basophils # (Auto) 0.1 x10^3/uL (0.0-0.2) Heparin Anti-Xa Act, Unfractionated 0.38 IU/mL (0.30-0.70) Sodium Level 138 mmol/L (136-145) Potassium Level 3.8 mmol/L (3.5-5.1) Chloride Level 103 mmol/L (98-107) Carbon Dioxide Level 28 mmol/L (21-32) Anion Gap 7 (6-14) Blood Urea Nitrogen 74 mg/dL (8-26) Creatinine 3.6 mg/dL (0.7-1.3) Estimated GFR (Cockcroft-Gault) 20.2 Glucose Level 267 mg/dL (70-99) Calcium Level 7.7 mg/dL (8.5-10.1) Phosphorus Level 3.9 mg/dL (2.6-4.7) Magnesium Level 2.3 mg/dL (1.8-2.4) Albumin 1.5 g/dL (3.4-5.0) Test 04/30/21 08:00 04/30/21 12:47 O2 Saturation 94 % (92-99) Arterial Blood pH 7.42 (7.35-7.45) Arterial Blood pCO2 at Patient Temp 38 mmHg (35-46) Arterial Blood pO2 at Patient Temp 71 mmHg (65-108) Arterial Blood HCO3 24 mmol/L (21-28) Arterial Blood Base Excess 0 mmol/L (-3-3) FiO2 45 Glucose (Fingerstick) 131 mg/dL (70-99) Microbiology 04/24/21 Blood Culture - Final, Complete NO GROWTH AFTER 5 DAYS Medications Current Medications Propofol 100 ml @ As Directed STK-MED ONCE IV ; Start 04/24/21 at 12:36; Stop 04/24/21 at 12:36; Status DC Etomidate (Amidate) 20 mg STK-MED ONCE IV ; Start 04/24/21 at 13:38; Stop 04/24/21 at 13:38; Status DC Succinylcholine Chloride (Anectine) 200 mg STK-MED ONCE .ROUTE ; Start 04/24/21 at 13:38; Stop 04/24/21 at 13:38; Status DC Fentanyl Citrate (Fentanyl 2ml Vial) 50 mcg PRN Q1HR PRN IV PAIN; Start 04/24/21 at 14:00; Stop 04/24/21 at 14:14; Status DC Acetaminophen (Tylenol) 650 mg PRN Q6HRS PRN PO Headaches, Temp > 101.5' Last administered on 04/25/21at 17:31; Start 04/24/21 at 14:00 Ondansetron HCl (Zofran) 4 mg PRN Q6HRS PRN IVP NAUSEA/VOMITING; Start 04/24/21 at 14:00; Status Cancel Sodium Chloride (Normal Saline Flush) 3 ml QSHIFT PRN IV AFTER MEDS AND BLOOD DRAWS; Start 04/24/21 at 14:00 Fentanyl Citrate (Fentanyl 2ml Vial) 25 mcg PRN Q1HR PRN IV SEVERE PAIN 7-10; Start 04/24/21 at 14:00; Stop 04/24/21 at 14:14; Status DC Bisacodyl (Dulcolax Supp) 10 mg PRN DAILY PRN MA CONSTIPATION; Start 04/24/21 at 14:00 Fentanyl Citrate 30 ml @ 0 mls/hr CONT PRN IV SEE PROTOCOL; Start 04/24/21 at 14:00; Stop 04/24/21 at 14:12; Status DC Propofol 100 ml @ 0 mls/hr CONT PRN IV PER PROTOCOL Last administered on 04/24/21at 15:12; Start 04/24/21 at 14:00; Stop 04/24/21 at 15:19; Status DC Chlorhexidine Gluconate (Peridex) 15 ml BID MM Last administered on 04/24/21at 20:49; Start 04/24/21 at 21:00; Stop 04/25/21 at 11:19; Status DC Acetaminophen (Tylenol) 650 mg PRN Q6HRS PRN PO Headaches, Temp > 101.5'; Start 04/24/21 at 14:00; Status Cancel Ondansetron HCl (Zofran) 4 mg PRN Q6HRS PRN IVP NAUSEA/VOMITING; Start 04/24/21 at 14:00 Fentanyl Citrate (Fentanyl 2ml Vial) 25 mcg PRN Q1HR PRN IV SEVERE PAIN 7-10 Last administered on 04/24/21at 16:39; Start 04/24/21 at 14:00 Fentanyl Citrate 30 ml @ 0 mls/hr CONT PRN IV SEE PROTOCOL Last administered on 04/30/21at 15:23; Start 04/24/21 at 14:00 Aspirin (Ecotrin) 81 mg DAILYWBKFT PO Last administered on 04/28/21at 08:01; Start 04/25/21 at 08:00 Carvedilol (Coreg) 37.5 mg BIDWMEALS PO ; Start 04/24/21 at 17:00; Stop 04/24/21 at 16:17; Status DC Montelukast Sodium (Singulair) 10 mg HS PO Last administered on 04/29/21at 21:29; Start 04/24/21 at 21:00 Atorvastatin Calcium (Lipitor) 80 mg QHS PO Last administered on 04/29/21at 21:28; Start 04/24/21 at 21:00 Heparin Sodium (Porcine) (Heparin Sodium) 5,000 unit Q8HRS SQ ; Start 04/24/21 at 22:00; Status Cancel Furosemide (Lasix) 40 mg 1X ONCE IVP Last administered on 04/24/21at 16:45; Start 04/24/21 at 15:15; Stop 04/24/21 at 15:19; Status DC Propofol 100 ml @ 0 mls/hr CONT PRN IV PER PROTOCOL Last administered on 04/30/21at 13:00; Start 04/24/21 at 15:30 Carvedilol (Coreg) 3.125 mg BIDWMEALS PO Last administered on 04/25/21 09:23; Start 04/24/21 at 17:00; Stop 04/25/21 at 15:42; Status DC Cefepime HCl (Maxipime) 2 gm 1X ONCE IVP Last administered on 04/24/21at 18:27; Start 04/24/21 at 16:30; Stop 04/24/21 at 16:31; Status DC Insulin Human Lispro (HumaLOG) 0-9 UNITS Q6HRS SQ Last administered on 04/30/21 06:26; Start 04/24/21 at 18:00 Dextrose (Dextrose 50%-Water Syringe) 12.5 gm PRN Q15MIN PRN IV SEE COMMENTS Last administered on 04/24/21at 23:43; Start 04/24/21 at 16:30 Heparin Sodium/ Dextrose 250 ml @ 0 mls/hr CONT PRN IV PER PROTOCOL Last administered on 04/30/21 02:19; Start 04/24/21 at 16:45 Heparin Sodium (Porcine) (Heparin Sodium) 3,200 unit PRN Q6HRS PRN IV FOR UFH LEVEL LESS THAN 0.2 Last administered on 04/24/21at 23:32; Start 04/24/21 at 16:45 Cefepime HCl (Maxipime) 1 gm Q12HR IVP Last administered on 04/27/21at 08:09; Start 04/25/21 at 09:00; Stop 04/27/21 at 09:17; Status DC Furosemide (Lasix) 40 mg 1X ONCE IVP ; Start 04/25/21 at 11:30; Stop 04/25/21 at 11:31; Status DC Metoprolol Tartrate (Lopressor Vial) 5 mg 1X ONCE IVP Last administered on 04/25/21at 11:27; Start 04/25/21 at 11:30; Stop 04/25/21 at 11:31; Status DC Info (Anti-Coagulation Monitoring By Pharmacy) 1 each PRN DAILY PRN MC PER PROTOCOL Last administered on 04/26/21at 08:51; Start 04/25/21 at 13:00 Digoxin (Lanoxin) 500 mcg 1X ONCE IV Last administered on 04/25/21at 14:52; Start 04/25/21 at 14:45; Stop 04/25/21 at 14:46; Status DC Hydralazine HCl (Apresoline Inj) 10 mg PRN Q4HRS PRN IVP ELEVATED BP, SEE COMMENTS; Start 04/25/21 at 14:45 Metoprolol Tartrate (Lopressor Vial) 5 mg Q6HRS IVP Last administered on 04/30/21at 12:43; Start 04/25/21 at 18:00 Dexamethasone Sodium Phosphate (Decadron) 6 mg DAILY IVP Last administered on 04/30/21at 12:42; Start 04/25/21 at 17:00 Remdesivir 200 mg/ Sodium Chloride 210 ml @ 210 mls/hr 1X ONCE IV Last administered on 04/25/21at 17:09; Start 04/25/21 at 17:30; Stop 04/25/21 at 18:29; Status DC Remdesivir 100 mg/ Sodium Chloride 230 ml @ 460 mls/hr Q24H IV Last administered on 04/29/21at 13:51; Start 04/26/21 at 17:30; Stop 04/29/21 at 17:59; Status DC Midazolam HCl 100 ml @ 0 mls/hr CONT PRN IV SEE PROTOCOL Last administered on 04/30/21at 06:41; Start 04/26/21 at 07:00 Pantoprazole Sodium (PROTONIX VIAL for IV PUSH) 40 mg DAILYAC IVP Last administered on 04/30/21at 12:43; Start 04/26/21 at 09:30 Norepinephrine Bitartrate 8 mg/ Dextrose 258 ml @ 25.349 mls/ hr CONT PRN IV PER PROTOCOL Last administered on 04/26/21at 17:53; Start 04/26/21 at 12:15 Digoxin (Lanoxin) 250 mcg 1X ONCE IV Last administered on 04/26/21at 15:02; Start 04/26/21 at 13:00; Stop 04/26/21 at 13:05; Status DC Amiodarone HCl 150 mg/Dextrose 103 ml @ 618 mls/hr 1X ONCE IV Last administered on 04/27/21at 02:30; Start 04/27/21 at 02:30; Stop 04/27/21 at 02:39; Status DC Amiodarone HCl 450 mg/Dextrose 259 ml @ 33 mls/hr CONT PRN IV SEE I/O RECORD; Start 04/27/21 at 02:30; Stop 04/30/21 at 07:56; Status DC Insulin Glargine (Lantus Syringe) 25 unit QHS SQ Last administered on 04/29/21at 21:29; Start 04/27/21 at 21:00 Cefepime HCl (Maxipime) 1 gm Q24H IVP Last administered on 04/30/21at 12:44; Start 04/28/21 at 09:30 Sodium Bicarbonate (Sodium Bicarb Adult 8.4% Syr) 50 meq 1X ONCE IV Last administered on 04/27/21at 09:50; Start 04/27/21 at 09:45; Stop 04/27/21 at 09:46; Status DC Lidocaine HCl (Buffered Lidocaine 1%) 3 ml STK-MED ONCE .ROUTE ; Start 04/27/21 at 10:57; Stop 04/27/21 at 10:58; Status DC Amiodarone HCl (Cordarone) 200 mg DAILY PO ; Start 04/27/21 at 12:00; Stop 04/27/21 at 12:29; Status DC Lidocaine HCl (Buffered Lidocaine 1%) 3 ml 1X ONCE INJ Last administered on 04/27/21at 11:15; Start 04/27/21 at 11:15; Stop 04/27/21 at 11:16; Status DC Amiodarone HCl (Cordarone) 200 mg DAILY PO Last administered on 04/30/21at 12:44; Start 04/28/21 at 09:00 Sodium Chloride 1,000 ml @ 1,000 mls/hr Q1H PRN IV hypotension; Start 04/28/21 at 11:00; Stop 04/28/21 at 16:59; Status DC Albumin Human 200 ml @ 200 mls/hr 1X PRN PRN IV Hypotension; Start 04/28/21 at 11:00; Stop 04/28/21 at 16:59; Status DC Sodium Chloride (Normal Saline Flush) 10 ml 1X PRN PRN IV AP catheter pack; Start 04/28/21 at 11:00; Stop 04/29/21 at 10:59; Status DC Sodium Chloride (Normal Saline Flush) 10 ml 1X PRN PRN IV [employer] catheter pack; Start 04/28/21 at 11:00; Stop 04/29/21 at 10:59; Status DC Sodium Chloride 1,000 ml @ 400 mls/hr Q2H30M PRN IV PATENCY; Start 04/28/21 at 11:00; Stop 04/28/21 at 22:59; Status DC Info (PHARMACY MONITORING -- do not chart) 1 each PRN DAILY PRN MC SEE COMMENTS; Start 04/28/21 at 11:00; Status UNV Info (PHARMACY MONITORING -- do not chart) 1 each PRN DAILY PRN MC SEE COMMENTS; Start 04/28/21 at 11:00 Magnesium Sulfate 50 ml @ 25 mls/hr PRN DAILY PRN IV for Mag < 1.7 on am labs; Start 04/29/21 at 10:45 Vecuronium [place] (Norcuron Bolus) 6 mg PRN Q6HRS PRN IV VENTILATOR COMPLIANCE; Start 04/30/21 at 11:15 Info (PHARMACY MONITORING -- do not chart) 1 each PRN DAILY PRN MC SEE COMMENTS; Start 04/30/21 at 12:30 Active Scripts Active Glyburide 2.5 Mg Tablet 1 Tab PO DAILY 14 Days Polyethylene Glycol 3350 17 Gm Powd.pack 17 Gm PO DAILY 14 Days Dok (Docusate Sodium) 100 Mg Capsule 100 Mg PO PRN DAILY PRN 30 Days Bisacodyl 5 Mg Tablet.dr 5 Mg PO PRN DAILY PRN 14 Days Acetaminophen 325 Mg Tablet 650 Mg PO PRN Q4HRS PRN 14 Days Aspirin Ec (Aspirin) 81 Mg Tablet. 81 Mg PO DAILYWBKFT 30 Days Hydralazine Hcl 25 Mg Tablet 25 Mg PO QID 30 Days Reported Fenofibrate 54 Mg Tablet 1 Tab PO DAILY Potassium Chloride (Potassium Chloride) 20 Meq Tablet.er 20 Meq PO DAILY Coreg (Carvedilol) 12.5 Mg Tablet 37.5 Mg PO BIDWMEALS Rosuvastatin Calcium 40 Mg Tablet 40 Mg PO QHS Gabapentin (Gabapentin) 100 Mg Capsule 200 Mg PO BID Montelukast Sodium Tablet (Montelukast Sodium) 10 Mg Tablet 10 Mg PO HS Protonix (Pantoprazole Sodium) 20 Mg Tablet.dr 2 Tab PO DAILY Amlodipine Besylate 5 Mg Tablet 5 Mg PO DAILY Furosemide 40 Mg Tablet 1 Tab PO DAILY Proair Hfa Inhaler (Albuterol Sulfate) 8.5 Gm Hfa.aer.ad 2 Puff IH PRN Q4-6HRS PRN 21 Days Advair 100-50 Diskus (Fluticasone/Salmeterol) 1 Each Disk.w.dev 1 Puff IH BID Vitals/I & O Vital Sign - Last 24 Hours 04/29/21 04/29/21 04/29/21 04/29/21 17:46 18:16 18:24 19:00 Pulse 64 62 Resp 20 20 20 30 B/P (MAP) 163/65 (97) 174/79 (110) Pulse Ox 96 97 97 97 O2 Delivery Ventilator Ventilator Ventilator Ventilator 04/29/21 04/29/21 04/29/21 04/29/21 20:00 20:00 20:24 21:00 Temp 98.2 98.2 Pulse 72 64 Resp 34 20 B/P (MAP) 204/83 (123) 180/75 (110) Pulse Ox 96 96 97 O2 Delivery Ventilator Mechanical Ventilator Ventilator Ventilator 04/29/21 04/29/21 04/29/21 04/30/21 22:00 23:00 23:50 00:00 Pulse 56 79 79 Resp 20 20 B/P (MAP) 153/65 (94) 155/66 (95) 217/99 Pulse Ox 95 97 O2 Delivery Ventilator Ventilator Mechanical Ventilator 04/30/21 04/30/21 04/30/21 04/30/21 00:00 00:34 01:00 02:00 Temp 98.1 98.1 Pulse 58 63 69 Resp 20 20 20 B/P (MAP) 178/73 (108) 168/73 (104) 153/65 (94) Pulse Ox 96 96 96 95 O2 Delivery Ventilator Ventilator Ventilator Ventilator 04/30/21 04/30/21 04/30/21 04/30/21 03:00 03:15 04:00 04:00 Temp 97.7 97.7 Pulse 63 67 Resp 20 20 B/P (MAP) 167/73 (104) 187/76 (113) Pulse Ox 96 96 96 O2 Delivery Ventilator Ventilator Ventilator Mechanical Ventilator 04/30/21 04/30/21 04/30/21 04/30/21 05:00 06:00 06:01 06:13 Pulse 75 73 76 Resp 20 20 B/P (MAP) 184/70 (108) 143/57 (85) 177/78 Pulse Ox 96 96 97 O2 Delivery Ventilator Ventilator Ventilator 04/30/21 04/30/21 04/30/21 04/30/21 07:12 07:38 08:00 09:00 Temp 97.2 97.2 Pulse 69 64 Resp 20 20 B/P (MAP) 170/75 (106) 185/70 (108) Pulse Ox 97 97 97 O2 Delivery Ventilator Ventilator Mechanical Ventilator Ventilator 04/30/21 04/30/21 04/30/21 04/30/21 09:43 10:00 10:13 11:09 Pulse 96 86 Resp 20 20 20 20 B/P (MAP) 163/77 (105) 185/93 (123) Pulse Ox 97 97 96 97 O2 Delivery Ventilator Ventilator Ventilator Ventilator 04/30/21 04/30/21 04/30/21 04/30/21 11:37 12:00 12:08 12:43 Temp 98.0 98.0 Pulse 76 71 Resp 20 B/P (MAP) 133/69 (90) 134/62 Pulse Ox 96 97 O2 Delivery Ventilator Ventilator Mechanical Ventilator 04/30/21 04/30/21 04/30/21 04/30/21 12:44 13:12 13:27 14:19 Pulse 86 59 64 Resp 20 20 B/P (MAP) 134/62 166/70 (102) 146/62 (90) Pulse Ox 98 97 97 O2 Delivery Ventilator Ventilator Ventilator 7/26/21 7/26/21 7/26/21 7/26/21 15:09 15:23 15:53 16:01 Pulse 54 Resp 20 20 20 B/P (MAP) 137/60 (85) Pulse Ox 97 97 97 O2 Delivery Ventilator Ventilator Ventilator Mechanical Ventilator 04/30/21 04/30/21 16:03 16:34 Temp 97.9 97.9 Pulse 57 Resp 20 B/P (MAP) 163/71 (101) Pulse Ox 97 97 O2 Delivery Ventilator Ventilator Intake and Output 04/29/21 04/29/21 04/30/21 15:00 23:00 07:00 Intake Total 430 ml 979 ml 1358 ml Output Total 400 ml 300 ml 495 ml Balance 30 ml 679 ml 863 ml Justifications for Admission General Conditions Altered mental status?: Yes Justification of admission: Patient has tachycardia (> 100 beats per minute) or hypotension (SBP < 90 mm Hg) leading to inadequate systemic perfusion as indicated by severe/persistent altered mental status. Other Justification VIDAL MONTANA MD Apr 30, 2021 17:08
[2021-04-30] MEDS: MONTELUKAST SODIUM 10 MG TABLET. PO SCH (20:49)
[2021-04-30] MEDS: ATORVASTATIN CALCIUM 40 MG TABLET. PO SCH (20:50)
[2021-04-30] MEDS: INSULIN GLARGINE SYRINGE. SQ SCH (20:50)
[2021-05-01] VITALS (25 sets, daily range): BP systolic 125–198; BP diastolic 59–93
[2021-05-01] MEDS: HEPARIN 25,000UTS/250ML PREMIX 250 ML IV PRN (05:10)
[2021-05-01 05:38] LABS: BASO % 0 % (0-3); EOS % 0 % (0-3); HEMATOCRIT 28.3 % (39.0-53.0); LYMPH # 1.9 x10^3/uL (1.0-4.8); LYMPH % 9 % (24-48); MEAN CORPUSCULAR HEMOGLOBIN 26 pg (25-35); MEAN CORPUSCULAR HGB CONC 32 g/dL (31-37); MEAN CORPUSCULAR VOLUME 82 fL (79-100); MONO # 1.9 x10^3/uL (0.0-1.1); MONO % 9 % (0-9); NEUT # 17.3 x10^3/uL (1.8-7.7); NEUT % 82 % (31-73); PLATELET COUNT 282 x10^3/uL (140-400); RED BLOOD COUNT 3.46 x10^6/uL (4.30-5.70); RED CELL DISTRIBUTION WIDTH 16.3 % (11.5-14.5); WHITE BLOOD COUNT 21.2 x10^3/uL (4.0-11.0)
[2021-05-01] MEDS: METOPROLOL IV PUSH 5 MG/5 ML VIAL. IVP SCH ×3 (05:59→18:13)
[2021-05-01] MEDS: INSULIN LISPRO 300 UNITS/3 ML VIAL. SQ SCH ×3 (06:00→18:14)
[2021-05-01 06:01] LABS: ALBUMIN 1.6 g/dL (3.4-5.0); CALCIUM 7.9 mg/dL (8.5-10.1); CREATININE 2.7 mg/dL (0.7-1.3); GFR 28.1; PHOSPHORUS 4.4 mg/dL (2.6-4.7); POTASSIUM 4.1 mmol/L (3.5-5.1)
--- NOTE | 2021-05-01 07:25 | PDOC ---
PULMONARY PROGRESS NOTES DATE: 05/01/21 TIME: 07:24 Subjective Patient currently sedated, on IV heparin, On 40%, 5 of PEEP, assist control. Underwent hemodialysis yesterday Vitals Vital Signs Date Time Temp Pulse Resp B/P (MAP) Pulse Ox O2 Delivery O2 Flow Rate FiO2 05/01/21 07:16 20 97 Ventilator 05/01/21 07:01 53 186/83 (117) 05/01/21 04:00 97.2 97.2 Comments Visual exam done due to COVID-19. Intubated and sedated No paradoxical breathing. Labs Laboratory Tests Test 04/29/21 09:25 04/29/21 12:58 04/29/21 16:51 04/29/21 22:25 O2 Saturation 93 % (92-99) Arterial Blood pH 7.42 (7.35-7.45) Arterial Blood pCO2 at Patient Temp 33 mmHg (35-46) Arterial Blood pO2 at Patient Temp 70 mmHg (65-108) Arterial Blood HCO3 21 mmol/L (21-28) Arterial Blood Base Excess -3 mmol/L (-3-3) FiO2 Ac 20 Glucose (Fingerstick) 232 mg/dL (70-99) 243 mg/dL (70-99) 296 mg/dL (70-99) Test 04/30/21 00:20 04/30/21 06:20 04/30/21 06:22 04/30/21 08:00 Glucose (Fingerstick) 270 mg/dL (70-99) 276 mg/dL (70-99) White Blood Count 23.1 x10^3/uL (4.0-11.0) Red Blood Count 3.33 x10^6/uL (4.30-5.70) Hemoglobin 8.7 g/dL (13.0-17.5) Hematocrit 27.2 % (39.0-53.0) Mean Corpuscular Volume 82 fL (79-100) Mean Corpuscular Hemoglobin 26 pg (25-35) Mean Corpuscular Hemoglobin Concent 32 g/dL (31-37) Red Cell Distribution Width 16.0 % (11.5-14.5) Platelet Count 243 x10^3/uL (140-400) Neutrophils (%) (Auto) 87 % (31-73) Lymphocytes (%) (Auto) 6 % (24-48) Monocytes (%) (Auto) 7 % (0-9) Eosinophils (%) (Auto) 0 % (0-3) Basophils (%) (Auto) 0 % (0-3) Neutrophils # (Auto) 20.1 x10^3/uL (1.8-7.7) Lymphocytes # (Auto) 1.3 x10^3/uL (1.0-4.8) Monocytes # (Auto) 1.6 x10^3/uL (0.0-1.1) Eosinophils # (Auto) 0.0 x10^3/uL (0.0-0.7) Basophils # (Auto) 0.1 x10^3/uL (0.0-0.2) Heparin Anti-Xa Act, Unfractionated 0.38 IU/mL (0.30-0.70) Sodium Level 138 mmol/L (136-145) Potassium Level 3.8 mmol/L (3.5-5.1) Chloride Level 103 mmol/L (98-107) Carbon Dioxide Level 28 mmol/L (21-32) Anion Gap 7 (6-14) Blood Urea Nitrogen 74 mg/dL (8-26) Creatinine 3.6 mg/dL (0.7-1.3) Estimated GFR (Cockcroft-Gault) 20.2 Glucose Level 267 mg/dL (70-99) Calcium Level 7.7 mg/dL (8.5-10.1) Phosphorus Level 3.9 mg/dL (2.6-4.7) Magnesium Level 2.3 mg/dL (1.8-2.4) Albumin 1.5 g/dL (3.4-5.0) O2 Saturation 94 % (92-99) Arterial Blood pH 7.42 (7.35-7.45) Arterial Blood pCO2 at Patient Temp 38 mmHg (35-46) Arterial Blood pO2 at Patient Temp 71 mmHg (65-108) Arterial Blood HCO3 24 mmol/L (21-28) Arterial Blood Base Excess 0 mmol/L (-3-3) FiO2 45 Test 04/30/21 12:47 04/30/21 17:15 04/30/21 23:41 05/01/21 05:10 Glucose (Fingerstick) 131 mg/dL (70-99) 209 mg/dL (70-99) 232 mg/dL (70-99) White Blood Count 21.2 x10^3/uL (4.0-11.0) Red Blood Count 3.46 x10^6/uL (4.30-5.70) Hemoglobin 9.0 g/dL (13.0-17.5) Hematocrit 28.3 % (39.0-53.0) Mean Corpuscular Volume 82 fL (79-100) Mean Corpuscular Hemoglobin 26 pg (25-35) Mean Corpuscular Hemoglobin Concent 32 g/dL (31-37) Red Cell Distribution Width 16.3 % (11.5-14.5) Platelet Count 282 x10^3/uL (140-400) Neutrophils (%) (Auto) 82 % (31-73) Lymphocytes (%) (Auto) 9 % (24-48) Monocytes (%) (Auto) 9 % (0-9) Eosinophils (%) (Auto) 0 % (0-3) Basophils (%) (Auto) 0 % (0-3) Neutrophils # (Auto) 17.3 x10^3/uL (1.8-7.7) Lymphocytes # (Auto) 1.9 x10^3/uL (1.0-4.8) Monocytes # (Auto) 1.9 x10^3/uL (0.0-1.1) Eosinophils # (Auto) 0.0 x10^3/uL (0.0-0.7) Basophils # (Auto) 0.0 x10^3/uL (0.0-0.2) Sodium Level 137 mmol/L (136-145) Potassium Level 4.1 mmol/L (3.5-5.1) Chloride Level 101 mmol/L (98-107) Carbon Dioxide Level 30 mmol/L (21-32) Anion Gap 6 (6-14) Blood Urea Nitrogen 53 mg/dL (8-26) Creatinine 2.7 mg/dL (0.7-1.3) Estimated GFR (Cockcroft-Gault) 28.1 Glucose Level 213 mg/dL (70-99) Calcium Level 7.9 mg/dL (8.5-10.1) Phosphorus Level 4.4 mg/dL (2.6-4.7) Magnesium Level 2.3 mg/dL (1.8-2.4) Albumin 1.6 g/dL (3.4-5.0) Test 05/01/21 05:19 Glucose (Fingerstick) 218 mg/dL (70-99) Laboratory Tests Test 04/30/21 08:00 04/30/21 12:47 04/30/21 17:15 04/30/21 23:41 O2 Saturation 94 % (92-99) Arterial Blood pH 7.42 (7.35-7.45) Arterial Blood pCO2 at Patient Temp 38 mmHg (35-46) Arterial Blood pO2 at Patient Temp 71 mmHg (65-108) Arterial Blood HCO3 24 mmol/L (21-28) Arterial Blood Base Excess 0 mmol/L (-3-3) FiO2 45 Glucose (Fingerstick) 131 mg/dL (70-99) 209 mg/dL (70-99) 232 mg/dL (70-99) Test 05/01/21 05:10 05/01/21 05:19 White Blood Count 21.2 x10^3/uL (4.0-11.0) Red Blood Count 3.46 x10^6/uL (4.30-5.70) Hemoglobin 9.0 g/dL (13.0-17.5) Hematocrit 28.3 % (39.0-53.0) Mean Corpuscular Volume 82 fL (79-100) Mean Corpuscular Hemoglobin 26 pg (25-35) Mean Corpuscular Hemoglobin Concent 32 g/dL (31-37) Red Cell Distribution Width 16.3 % (11.5-14.5) Platelet Count 282 x10^3/uL (140-400) Neutrophils (%) (Auto) 82 % (31-73) Lymphocytes (%) (Auto) 9 % (24-48) Monocytes (%) (Auto) 9 % (0-9) Eosinophils (%) (Auto) 0 % (0-3) Basophils (%) (Auto) 0 % (0-3) Neutrophils # (Auto) 17.3 x10^3/uL (1.8-7.7) Lymphocytes # (Auto) 1.9 x10^3/uL (1.0-4.8) Monocytes # (Auto) 1.9 x10^3/uL (0.0-1.1) Eosinophils # (Auto) 0.0 x10^3/uL (0.0-0.7) Basophils # (Auto) 0.0 x10^3/uL (0.0-0.2) Sodium Level 137 mmol/L (136-145) Potassium Level 4.1 mmol/L (3.5-5.1) Chloride Level 101 mmol/L (98-107) Carbon Dioxide Level 30 mmol/L (21-32) Anion Gap 6 (6-14) Blood Urea Nitrogen 53 mg/dL (8-26) Creatinine 2.7 mg/dL (0.7-1.3) Estimated GFR (Cockcroft-Gault) 28.1 Glucose Level 213 mg/dL (70-99) Calcium Level 7.9 mg/dL (8.5-10.1) Phosphorus Level 4.4 mg/dL (2.6-4.7) Magnesium Level 2.3 mg/dL (1.8-2.4) Albumin 1.6 g/dL (3.4-5.0) Glucose (Fingerstick) 218 mg/dL (70-99) Medications Active Scripts Medications Dose Route/Sig Max Daily Dose Days Date Category Glyburide 2.5 Mg Tablet 1 Tab PO DAILY 04/19/21 Rx Polyethylene Glycol 3350 17 Gm Powd.pack 17 Gm PO DAILY 04/19/21 Rx Dok (Docusate Sodium) 100 Mg Capsule 100 Mg PO PRN DAILY PRN 04/19/21 Rx Bisacodyl 5 Mg Tablet.dr 5 Mg PO PRN DAILY PRN 04/19/21 Rx Acetaminophen 325 Mg Tablet 650 Mg PO PRN Q4HRS PRN 04/19/21 Rx Aspirin Ec (Aspirin) 81 Mg Tablet.dr 81 Mg PO DAILYWBKFT 04/19/21 Rx Hydralazine Hcl 25 Mg Tablet 25 Mg PO QID 30 04/19/21 Rx Fenofibrate 54 Mg Tablet 1 Tab PO DAILY 04/17/21 Reported Potassium Chloride (Potassium Chloride) 20 Meq Tablet.er 20 Meq PO DAILY 04/17/21 Reported Coreg (Carvedilol) 12.5 Mg Tablet 37.5 Mg PO BIDWMEALS 04/17/21 Reported Rosuvastatin Calcium 40 Mg Tablet 40 Mg PO QHS 04/17/21 Reported Gabapentin (Gabapentin) 100 Mg Capsule 200 Mg PO BID 04/17/21 Reported Montelukast Sodium Tablet (Montelukast Sodium) 10 Mg Tablet 10 Mg PO HS 04/17/21 Reported Protonix (Pantoprazole Sodium) 20 Mg Tablet.dr 2 Tab PO DAILY 04/17/21 Reported Amlodipine Besylate 5 Mg Tablet 5 Mg PO DAILY 04/17/21 Reported Furosemide 40 Mg Tablet 1 Tab PO DAILY 04/17/21 Reported Proair Hfa Inhaler (Albuterol Sulfate) 8.5 Gm Hfa.aer.ad 2 Puff IH PRN Q4-6HRS PRN 21 04/16/21 Reported Advair 100-50 Diskus (Fluticasone/Salmeterol) 1 Each Disk.w.dev 1 Puff IH BID 04/16/21 Reported Comments Chest x-ray 04/30 reviewed. Bilateral improving infiltrates as well as improving pleural effusion. Impression . IMPRESSION: 1. Acute hypoxic respiratory failure, multifactorial secondary to bilateral diffuse interstitial infiltrates. --COVID-[address] chest with bilateral diffuse interstitial infiltrates without any significant pleural effusion. Consistent with viral pneumonia. 3. History of recent hospitalization for abdominal pain. He was supposed to have cardiac testing and outpatient stress test. Now, he is hospitalized. Echo with normal ejection fraction and moderate left ventricular hypertrophy. 4. Non-ST segment elevation FL 5. History of tobacco use, details of length not available. 6. Chronic kidney disease. Worsening ILDA on CKD, on HD now 7. Increasing metabolic acidosis secondary to ILDA. Improved with hemodialysis. 8. Abnormal chest x-ray Plan . Updated 05/01 Patient currently on 40% FiO2 5 of PEEP, Discussed with the nurse, and will decrease sedation, possible spontaneous trial Continue empiric antibiotics Steroids Status post remdesivir Hemodialysis per nephrology Nutritional support DVT GI prophylaxis Labs and chest x-ray reviewed, no new x-ray for today. Updated 04/30/2021 Continue current vent support assist-control mode 20/500/45%/5 Once down to 40% FiO2, will try weaning sedation and assess mental status. Currently having some paradoxical breathing. Will increase sedation. Add as needed paralytics. ABG/chest x-ray reviewed, Continue empiric antibiotics with cefepime. Continue steroids. Leukocytosis without fever likely related to steroids. Continue remdesivir Follow cardiology recommendations continue heparin drip Follow nephrology recs . Dialysis with increased ultrafiltration today. COVID-19 positive Tolerating tube feeding Discussed with nephrology. Patient initiated on hemodialysis. DVT/GI prophylaxis Discussed with RN and RT Critical care time 30 minutes ADELSO AVILA MD May 01, 2021 07:25
[2021-05-01] MEDS: ASPIRIN ENTERIC COATED 81 MG TABLET.DR. PO SCH (08:00)
[2021-05-01] MEDS: PANTOPRAZOLE IV PUSH 40 MG VIAL. IVP SCH (08:39)
[2021-05-01] MEDS: DEXAMETHASONE SOD PHOS 4 MG/ML VIAL IVP SCH (08:40)
[2021-05-01] MEDS: AMIODARONE HCL 200 MG TABLET. PO SCH (08:40)
[2021-05-01] MEDS: hydrALAZINE 20 MG/ML VIAL. IVP PRN ×2 (08:41→21:37)
[2021-05-01 08:49] LABS: BASE EXCESS ABG 1 mmol/L (-3-3); HCO3 ABG 25 mmol/L (21-28); PCO2 ABG 39 mmHg (35-46); PO2 ABG 85 mmHg (65-108); SAT O2 ABG 96 % (92-99)
[2021-05-01 08:58] LABS: FIO2 ABG 40%+5
--- NOTE | 2021-05-01 09:55 | PDOC ---
CARDIO Progress Notes Date and Time Date of Service 05/01/21 Time of Evaluation 945 Subjective Subjective: Other (intubated ) Vitals Vitals Vital Signs Date Time Temp Pulse Resp B/P (MAP) Pulse Ox O2 Delivery O2 Flow Rate FiO2 05/01/21 09:02 69 20 179/71 (107) 99 Ventilator 05/01/21 08:13 97.5 97.5 Weight Weight [ ] Input and Output Intake and Output Intake and Output 05/01/21 07:00 Intake Total 1965 ml Output Total 930 ml Balance 1035 ml IV Total 557 ml Tube Feeding 1108 ml Other 300 ml Output Urine Total 930 ml Gastric Drainage Total 0 ml Laboratory Labs Laboratory Tests Test 04/30/21 12:47 04/30/21 17:15 04/30/21 23:41 05/01/21 05:10 Glucose (Fingerstick) 131 mg/dL (70-99) 209 mg/dL (70-99) 232 mg/dL (70-99) White Blood Count 21.2 x10^3/uL (4.0-11.0) Red Blood Count 3.46 x10^6/uL (4.30-5.70) Hemoglobin 9.0 g/dL (13.0-17.5) Hematocrit 28.3 % (39.0-53.0) Mean Corpuscular Volume 82 fL (79-100) Mean Corpuscular Hemoglobin 26 pg (25-35) Mean Corpuscular Hemoglobin Concent 32 g/dL (31-37) Red Cell Distribution Width 16.3 % (11.5-14.5) Platelet Count 282 x10^3/uL (140-400) Neutrophils (%) (Auto) 82 % (31-73) Lymphocytes (%) (Auto) 9 % (24-48) Monocytes (%) (Auto) 9 % (0-9) Eosinophils (%) (Auto) 0 % (0-3) Basophils (%) (Auto) 0 % (0-3) Neutrophils # (Auto) 17.3 x10^3/uL (1.8-7.7) Lymphocytes # (Auto) 1.9 x10^3/uL (1.0-4.8) Monocytes # (Auto) 1.9 x10^3/uL (0.0-1.1) Eosinophils # (Auto) 0.0 x10^3/uL (0.0-0.7) Basophils # (Auto) 0.0 x10^3/uL (0.0-0.2) Sodium Level 137 mmol/L (136-145) Potassium Level 4.1 mmol/L (3.5-5.1) Chloride Level 101 mmol/L (98-107) Carbon Dioxide Level 30 mmol/L (21-32) Anion Gap 6 (6-14) Blood Urea Nitrogen 53 mg/dL (8-26) Creatinine 2.7 mg/dL (0.7-1.3) Estimated GFR (Cockcroft-Gault) 28.1 Glucose Level 213 mg/dL (70-99) Calcium Level 7.9 mg/dL (8.5-10.1) Phosphorus Level 4.4 mg/dL (2.6-4.7) Magnesium Level 2.3 mg/dL (1.8-2.4) Albumin 1.6 g/dL (3.4-5.0) Test 05/01/21 05:19 05/01/21 06:30 05/01/21 08:00 Glucose (Fingerstick) 218 mg/dL (70-99) Heparin Anti-Xa Act, Unfractionated 0.52 IU/mL (0.30-0.70) O2 Saturation 96 % (92-99) Arterial Blood pH 7.43 (7.35-7.45) Arterial Blood pCO2 at Patient Temp 39 mmHg (35-46) Arterial Blood pO2 at Patient Temp 85 mmHg (65-108) Arterial Blood HCO3 25 mmol/L (21-28) Arterial Blood Base Excess 1 mmol/L (-3-3) FiO2 40%+5 Microbiology Micro Microbiology 04/24/21 Blood Culture - Final, Complete NO GROWTH AFTER 5 DAYS Review of Systems Constitutional: yes: unresponsive, other (UNABLE TO OBTAIN) Physical Exam HEENT: Neck Supple W Full Motion Chest: Symmetric LUNGS: Other (MV) Heart: RRR (SR with PAC's, PVCs) Abdomen: Other (soft) Extremities: Other (2+ bilateral LE edema ) Neurology: other (sedated) Assessment Assessment 1. Acute respiratory failure secondary to CHF, s/p intubation. COVID + 2. Acute on chronic diastolic CHF 3. Hypertensive urgency; labile 4. NSTEMI; trop highest 2.8. Echo last week with preserved LV systolic function with moderate LVH. Most probable type II, demand ischemia in setting of above, although underling ischemic cannot be ruled out 5. ? CAD; details unknown 6. Hyperlipidemia; statin 7. 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 Diabetes, II 9. Leukocytosis 10. H/o bilateral subclavian stenosis s/p left subclavian sent placement complicated by retroperitoneal hematoma s/p evacuation in 08/2015. 11. New AFIB with RVR: currently SR Recommendations ASA, statin Metoprolol for rate control Amiodarone for rhyhtm maintenance Will transition heparin drip to SQ VTE prophylaxis Hydralazine, Labetalol IV PRN Fluid offloading via HD Ongoing lung optimization, treatment of COVID PNA as per pulm Supportive care Justicifation of Admission Dx: Justifications for Admission: Justification of Admission Dx: Yes Aspiration Pneumonia: Hemodynamic Instability CAMRYN DRAPER APRN May 01, 2021 09:55
[2021-05-01] MEDS: PROPOFOL 100 ML IV PRN ×3 (10:12→21:34)
[2021-05-01] MEDS: CEFEPIME HCL IV Push 1 GM VIAL. IVP SCH (10:13)
--- NOTE | 2021-05-01 10:20 | PDOC ---
Renal-Progress Notes Subjective Notes Notes ON THE VENT History of Present Illness Hx of present illness STABLE Vitals Vitals Vital Signs Date Time Temp Pulse Resp B/P (MAP) Pulse Ox O2 Delivery O2 Flow Rate FiO2 05/01/21 09:02 69 20 179/71 (107) 99 Ventilator 05/01/21 08:13 97.5 97.5 Weight Weight [ ] I.O. Intake and Output Intake and Output 05/01/21 07:00 Intake Total 1965 ml Output Total 930 ml Balance 1035 ml IV Total 557 ml Tube Feeding 1108 ml Other 300 ml Output Urine Total 930 ml Gastric Drainage Total 0 ml Labs Labs Laboratory Tests Test 04/30/21 12:47 04/30/21 17:15 04/30/21 23:41 05/01/21 05:10 Glucose (Fingerstick) 131 mg/dL (70-99) 209 mg/dL (70-99) 232 mg/dL (70-99) White Blood Count 21.2 x10^3/uL (4.0-11.0) Red Blood Count 3.46 x10^6/uL (4.30-5.70) Hemoglobin 9.0 g/dL (13.0-17.5) Hematocrit 28.3 % (39.0-53.0) Mean Corpuscular Volume 82 fL (79-100) Mean Corpuscular Hemoglobin 26 pg (25-35) Mean Corpuscular Hemoglobin Concent 32 g/dL (31-37) Red Cell Distribution Width 16.3 % (11.5-14.5) Platelet Count 282 x10^3/uL (140-400) Neutrophils (%) (Auto) 82 % (31-73) Lymphocytes (%) (Auto) 9 % (24-48) Monocytes (%) (Auto) 9 % (0-9) Eosinophils (%) (Auto) 0 % (0-3) Basophils (%) (Auto) 0 % (0-3) Neutrophils # (Auto) 17.3 x10^3/uL (1.8-7.7) Lymphocytes # (Auto) 1.9 x10^3/uL (1.0-4.8) Monocytes # (Auto) 1.9 x10^3/uL (0.0-1.1) Eosinophils # (Auto) 0.0 x10^3/uL (0.0-0.7) Basophils # (Auto) 0.0 x10^3/uL (0.0-0.2) Sodium Level 137 mmol/L (136-145) Potassium Level 4.1 mmol/L (3.5-5.1) Chloride Level 101 mmol/L (98-107) Carbon Dioxide Level 30 mmol/L (21-32) Anion Gap 6 (6-14) Blood Urea Nitrogen 53 mg/dL (8-26) Creatinine 2.7 mg/dL (0.7-1.3) Estimated GFR (Cockcroft-Gault) 28.1 Glucose Level 213 mg/dL (70-99) Calcium Level 7.9 mg/dL (8.5-10.1) Phosphorus Level 4.4 mg/dL (2.6-4.7) Magnesium Level 2.3 mg/dL (1.8-2.4) Albumin 1.6 g/dL (3.4-5.0) Test 05/01/21 05:19 05/01/21 06:30 05/01/21 08:00 Glucose (Fingerstick) 218 mg/dL (70-99) Heparin Anti-Xa Act, Unfractionated 0.52 IU/mL (0.30-0.70) O2 Saturation 96 % (92-99) Arterial Blood pH 7.43 (7.35-7.45) Arterial Blood pCO2 at Patient Temp 39 mmHg (35-46) Arterial Blood pO2 at Patient Temp 85 mmHg (65-108) Arterial Blood HCO3 25 mmol/L (21-28) Arterial Blood Base Excess 1 mmol/L (-3-3) FiO2 40%+5 Micro Micro Microbiology 04/24/21 Blood Culture - Final, Complete NO GROWTH AFTER 5 DAYS Review of Systems Constitutional: yes: unresponsive, other (UNABLE TO OBTAIN) Physical Exam General Appearance: other (ON THE VENT) Respiratory: decreased breath sounds Heart: S1S2 Abdomen: bowel sounds present Genitourinary: bladder flat Extremities: atrophy Neurology: other (sedated) Musculoskeletal: Other Assessment Assessment IMP [id number] CKD - SUSPECT STAGE 3 ACUTE HYPOXIC RESP FAILURE-FIO2 40 +5 PEEP COVID 19 PNEUMONIA MET ACIDOSIS-BETTER LEUCOCYTOSIS ANEMIA PLAN REMAINS CRITICALLY ILL VENT SUPPORT NUTRITION-NEPRO TF HOLD BETTY DUE TO HYPERCOAGULABLE STATE PRESSORS STEROIDS HD TOMORROW CONT TO MONITOR FOR RENAL RECOVERY WILL FOLLOW JEANINE NEWTON MD May 01, 2021 10:20
--- NOTE | 2021-05-01 12:06 | PDOC ---
[employer] PROGRESS NOTE Date of Service DOS: DATE: 05/01/21 TIME: 12:04 Chief Complaint Chief Complaint Respiratory failure requiring intubation [facility] [place] Acute [place] A. fib SIRS Hypertension with hypertensive urgency Hyperlipidemia CKD Diabetes History of bilateral subclavian stenosis History of marijuana use Severe protein calorie malnutrition History of Present Illness History of Present Illness 05/01/2021 Patient seen and examined in the [place] [address] ICU He is still intubated AC/20/500/40 percent with 5 of PEEP In A. fib Sedated with propofol fentanyl and Versed Has a heparin drip Missy with RN Chart reviewed He remains critically 04/30/2020 Patient seen and examined in the [place] [address] ICU He remains on the vent AC/20/500/40 5% with 5 PEEP Currently on dialysis Has OG feeds running Has a Nieves to bedside drainage Sedated with propofol and fentanyl Reviewed chart Discussed with RN He remains critically ill Mr Cunha is a 75 yo male w/ PMHx CAD, HTN, Hyperlipidemia, subclavian steel syndrome, subclavian stenosis s/p left subclavian sent placement complicated by retroperitoneal hematoma s/p evacuation in 08/2015), asthma, BART, CKD, DM2 who presented from home with home health care noted that he was short of breath and valverde with O2 saturations less than 89% as low as 84% not improved with nasal cannulated oxygen placed on CPAP and brought to ED for further care. He was just discharged from the hospital a week ago on April 19, 2021 for abdominal pain and was going for further cardiac testing with outpatient stress testing scheduled on May 28, 2021. Had echocardiogram April 17, 2021 with normal-appearing EF with moderate concentric LVH no significant valvular abnormalities. WBC 20, Hb 10.7, platelets 268, NA 140, K3.8, BUN 21, CR 2.9, glucose 162, albumin 3, troponin I 1.372, NT proBNP 33,318. EKG appears sinus tachycardia rate of 105 bpm with multiple PACs small ST depressions in lead II and V5. TWI in V6. Chest radiograph with diffuse interstitial and alveolar opacities and ET tube 5.8 cm above the leilani. Due to worsening respiratory status ED physician elected to intubate patient. Seen postintubation. Blood pressure little low after propofol bolus, but improved. Significant white frothy sputum per ET tube. Admitted to ICU for further care 04/29/2021: Afebrile, remains on vent at FiO2 45%, PEEP 5. WBC 20.4. Hemodialysis per nephrology. We will continue treatment with empiric antibiotics, remdesivir, and steroids. Continue heparin infusion and supportive care. Critical care time 30 minutes reviewing chart, review labs, review imaging, discussion with RN. 04/28/2021: Afebrile. FiO2 50%, PEEP 5. Nontunneled HD catheter placed yesterday due to worsening kidney function; eGFR 16 (CKD4). Chest x-ray showed unchanged interstitial opacities. Continue empiric antibiotics, steroids, and remdesivir. Continue heparin infusion, and continue to follow cardiology recommendations on new diagnosis of A. fib. Critical care time 30 minutes reviewing chart, review labs, review imaging, discussion with RN. 04/27/2021: Afebrile. On vent with FiO2 50%, PEEP 5. Troponin 2.8 yesterday; probable type II, demand ischemia. New onset A. fib. Continue heparin drip and as needed digoxin, per cardiology. Continue treatment with remdesivir, steroids, and prophylactic antibiotics. CBG 323 this morning; will add basal insulin. Critical care 30 minutes spent reviewing labs, reviewing imaging, reviewing charts, and discussion with RN. 04/26/2021: COVID-19 positive. Febrile overnight that was managed with cooling blankets. On vent with FiO2 50%, PEEP 5. Per cardiology, elevated troponins likely secondary to demand ischemia; continue heparin drip per cardiology. Maintain fluid balance and avoid nephrotoxins. Continue treatment with remdesivir, steroids, and prophylactic antibiotics. 30 minutes critical care time spent reviewing charts, reviewing labs, reviewing imaging, and discussion with RN. 04/25/2021: On vent FiO2 50, PEEP 5. Febrile, T-max 103.3. Patient was initiated on cooling blankets. Procalcitonin 0.13. Continue coverage for hospital-acquired pneumonia with cefepime. MRSA PCR pending. Critical care time 30 minutes spent reviewing charts, reviewing labs, review of imaging, discussion with RN. Vitals/I&O Vitals/I&O: Vital Signs Date Time Temp Pulse Resp B/P (MAP) Pulse Ox O2 Delivery O2 Flow Rate FiO2 05/01/21 11:40 96 Ventilator 05/01/21 11:04 80 20 170/77 (108) 05/01/21 08:13 97.5 97.5 I & O 04/30/21 04/30/21 05/01/21 15:00 23:00 07:00 Intake Total 200 ml 577 ml 1188 ml Output Total 400 ml 260 ml 270 ml Balance -200 ml 317 ml 918 ml Physical Exam General: Other (Intubated sedated) Heart: Other (Tachycardic) Abdomen: Soft, Other (obese) Extremities: Other (trace LE edema ) Skin: No rashes, No breakdown, No significant lesion Labs Labs: Laboratory Tests Test 04/30/21 12:47 04/30/21 17:15 04/30/21 23:41 05/01/21 05:10 Glucose (Fingerstick) 131 mg/dL (70-99) 209 mg/dL (70-99) 232 mg/dL (70-99) White Blood Count 21.2 x10^3/uL (4.0-11.0) Red Blood Count 3.46 x10^6/uL (4.30-5.70) Hemoglobin 9.0 g/dL (13.0-17.5) Hematocrit 28.3 % (39.0-53.0) Mean Corpuscular Volume 82 fL (79-100) Mean Corpuscular Hemoglobin 26 pg (25-35) Mean Corpuscular Hemoglobin Concent 32 g/dL (31-37) Red Cell Distribution Width 16.3 % (11.5-14.5) Platelet Count 282 x10^3/uL (140-400) Neutrophils (%) (Auto) 82 % (31-73) Lymphocytes (%) (Auto) 9 % (24-48) Monocytes (%) (Auto) 9 % (0-9) Eosinophils (%) (Auto) 0 % (0-3) Basophils (%) (Auto) 0 % (0-3) Neutrophils # (Auto) 17.3 x10^3/uL (1.8-7.7) Lymphocytes # (Auto) 1.9 x10^3/uL (1.0-4.8) Monocytes # (Auto) 1.9 x10^3/uL (0.0-1.1) Eosinophils # (Auto) 0.0 x10^3/uL (0.0-0.7) Basophils # (Auto) 0.0 x10^3/uL (0.0-0.2) Sodium Level 137 mmol/L (136-145) Potassium Level 4.1 mmol/L (3.5-5.1) Chloride Level 101 mmol/L (98-107) Carbon Dioxide Level 30 mmol/L (21-32) Anion Gap 6 (6-14) Blood Urea Nitrogen 53 mg/dL (8-26) Creatinine 2.7 mg/dL (0.7-1.3) Estimated GFR (Cockcroft-Gault) 28.1 Glucose Level 213 mg/dL (70-99) Calcium Level 7.9 mg/dL (8.5-10.1) Phosphorus Level 4.4 mg/dL (2.6-4.7) Magnesium Level 2.3 mg/dL (1.8-2.4) Albumin 1.6 g/dL (3.4-5.0) Test 05/01/21 05:19 05/01/21 06:30 05/01/21 08:00 Glucose (Fingerstick) 218 mg/dL (70-99) Heparin Anti-Xa Act, Unfractionated 0.52 IU/mL (0.30-0.70) O2 Saturation 96 % (92-99) Arterial Blood pH 7.43 (7.35-7.45) Arterial Blood pCO2 at Patient Temp 39 mmHg (35-46) Arterial Blood pO2 at Patient Temp 85 mmHg (65-108) Arterial Blood HCO3 25 mmol/L (21-28) Arterial Blood Base Excess 1 mmol/L (-3-3) FiO2 40%+5 Assessment and Plan Assessmemt and Plan Problems Medical Problems: (1) Elevated troponin Status: Acute (2) Person under investigation for COVID-19 Status: Acute (3) Pulmonary edema Status: Acute Respiratory failure requiring intubation COVID-19 Acute OR A. fib SIRS Hypertension with hypertensive urgency Hyperlipidemia CKD Diabetes History of bilateral subclavian stenosis History of marijuana use Severe protein calorie malnutrition Plan Covid protocol ICU monitoring Heparin drip Respiratory isolation Vent weaning Home meds Trend labs DVT prophylaxis Full code Appreciate subspecialist input Prognosis guarded CC time 32-minute Comment Review of Relevant I have reviewed the following items juanita (where applicable) has been applied. Justifications for Admission General Conditions Altered mental status?: Yes Justification of admission: Patient has tachycardia (> 100 beats per minute) or hypotension (SBP < 90 mm Hg) leading to inadequate systemic perfusion as indicated by severe/persistent altered mental status. Other Justification ILDA ELENI PEARL K III DO May 01, 2021 12:06
[2021-05-01] MEDS: MIDAZOLAM 100mg/100ml NS BAG 100 ML IV PRN (14:56)
[2021-05-01] MEDS: HEPARIN for SUB-Q USE 5,000 UNIT/ML VIAL. SQ SCH ×2 (15:52→21:36)
--- NOTE | 2021-05-01 16:32 | NUR ---
SS following up with discharge planning. SS reviewed pt chart and discussed with pt RN. Pt is currently on the vent at 40%. COVID19 positive. Pt on IV Cefepime. Hemodialysis. Pt on Propofol, Versed, and Fentanyl. Not stable. SS will continue to follow for discharge planning.
--- NOTE | 2021-05-01 17:47 | NUR ---
This nurse turned sedation off from patient. Within 30 minutes, patient had an increase to BP, HR, RR, WOB. Sedation was restarted. Continue monitoring patient.
[2021-05-01] MEDS: ATORVASTATIN CALCIUM 40 MG TABLET. PO SCH (21:34)
[2021-05-01] MEDS: MONTELUKAST SODIUM 10 MG TABLET. PO SCH (21:34)
[2021-05-01] MEDS: INSULIN GLARGINE SYRINGE. SQ SCH (21:35)
[2021-05-02] VITALS (26 sets, daily range): BP systolic 79–200; BP diastolic 40–105
[2021-05-02 06:02] LABS: BASO % 0 % (0-3); EOS # 0.1 x10^3/uL (0.0-0.7); EOS % 0 % (0-3); HEMATOCRIT 25.9 % (39.0-53.0); HEMOGLOBIN 8.4 g/dL (13.0-17.5); LYMPH # 2.1 x10^3/uL (1.0-4.8); LYMPH % 13 % (24-48); MEAN CORPUSCULAR HEMOGLOBIN 26 pg (25-35); MEAN CORPUSCULAR HGB CONC 32 g/dL (31-37); MEAN CORPUSCULAR VOLUME 81 fL (79-100); MONO # 1.7 x10^3/uL (0.0-1.1); MONO % 10 % (0-9); NEUT % 77 % (31-73); PLATELET COUNT 315 x10^3/uL (140-400); RED CELL DISTRIBUTION WIDTH 15.9 % (11.5-14.5); WHITE BLOOD COUNT 16.9 x10^3/uL (4.0-11.0)
[2021-05-02 06:26] LABS: ALBUMIN 1.5 g/dL (3.4-5.0); CALCIUM 8.2 mg/dL (8.5-10.1); GFR 24.9; PHOSPHORUS 4.4 mg/dL (2.6-4.7); POTASSIUM 3.7 mmol/L (3.5-5.1)
[2021-05-02] MEDS: MIDAZOLAM 100mg/100ml NS BAG 100 ML IV PRN ×2 (06:57→19:58)
[2021-05-02] MEDS: METOPROLOL IV PUSH 5 MG/5 ML VIAL. IVP SCH ×5 (07:02→23:39)
[2021-05-02] MEDS: HEPARIN for SUB-Q USE 5,000 UNIT/ML VIAL. SQ SCH ×3 (07:05→21:41)
[2021-05-02] MEDS: INSULIN LISPRO 300 UNITS/3 ML VIAL. SQ SCH ×3 (07:09→18:00)
[2021-05-02] MEDS: DEXAMETHASONE SOD PHOS 4 MG/ML VIAL IVP SCH (07:20)
[2021-05-02] MEDS: ASPIRIN ENTERIC COATED 81 MG TABLET.DR. PO SCH (07:20)
[2021-05-02] MEDS: CEFEPIME HCL IV Push 1 GM VIAL. IVP SCH (07:24)
[2021-05-02] MEDS: PANTOPRAZOLE IV PUSH 40 MG VIAL. IVP SCH (07:30)
[2021-05-02 08:18] LABS: BASE EXCESS ABG 2 mmol/L (-3-3); HCO3 ABG 26 mmol/L (21-28); PCO2 ABG 38 mmHg (35-46); PO2 ABG 64 mmHg (65-108); SAT O2 ABG 91 % (92-99)
[2021-05-02 08:19] LABS: FIO2 ABG 40
[2021-05-02] MEDS: AMIODARONE HCL 200 MG TABLET. PO SCH (09:00)
--- NOTE | 2021-05-02 09:00 | PDOC ---
PULMONARY PROGRESS NOTES DATE: 05/02/21 TIME: 09:00 Subjective No overnight events Patient currently sedated, on IV heparin, On 40%, 5 of PEEP, assist control. Vitals Vital Signs Date Time Temp Pulse Resp B/P (MAP) Pulse Ox O2 Delivery O2 Flow Rate FiO2 05/02/21 07:19 82 184/77 05/02/21 07:00 20 93 Ventilator 05/02/21 04:00 98.8 98.8 Comments Visual exam done due to COVID-19. Intubated and sedated No paradoxical breathing. Labs Laboratory Tests Test 04/30/21 12:47 04/30/21 17:15 04/30/21 23:41 05/01/21 05:10 Glucose (Fingerstick) 131 mg/dL (70-99) 209 mg/dL (70-99) 232 mg/dL (70-99) White Blood Count 21.2 x10^3/uL (4.0-11.0) Red Blood Count 3.46 x10^6/uL (4.30-5.70) Hemoglobin 9.0 g/dL (13.0-17.5) Hematocrit 28.3 % (39.0-53.0) Mean Corpuscular Volume 82 fL (79-100) Mean Corpuscular Hemoglobin 26 pg (25-35) Mean Corpuscular Hemoglobin Concent 32 g/dL (31-37) Red Cell Distribution Width 16.3 % (11.5-14.5) Platelet Count 282 x10^3/uL (140-400) Neutrophils (%) (Auto) 82 % (31-73) Lymphocytes (%) (Auto) 9 % (24-48) Monocytes (%) (Auto) 9 % (0-9) Eosinophils (%) (Auto) 0 % (0-3) Basophils (%) (Auto) 0 % (0-3) Neutrophils # (Auto) 17.3 x10^3/uL (1.8-7.7) Lymphocytes # (Auto) 1.9 x10^3/uL (1.0-4.8) Monocytes # (Auto) 1.9 x10^3/uL (0.0-1.1) Eosinophils # (Auto) 0.0 x10^3/uL (0.0-0.7) Basophils # (Auto) 0.0 x10^3/uL (0.0-0.2) Sodium Level 137 mmol/L (136-145) Potassium Level 4.1 mmol/L (3.5-5.1) Chloride Level 101 mmol/L (98-107) Carbon Dioxide Level 30 mmol/L (21-32) Anion Gap 6 (6-14) Blood Urea Nitrogen 53 mg/dL (8-26) Creatinine 2.7 mg/dL (0.7-1.3) Estimated GFR (Cockcroft-Gault) 28.1 Glucose Level 213 mg/dL (70-99) Calcium Level 7.9 mg/dL (8.5-10.1) Phosphorus Level 4.4 mg/dL (2.6-4.7) Magnesium Level 2.3 mg/dL (1.8-2.4) Albumin 1.6 g/dL (3.4-5.0) Test 05/01/21 05:19 05/01/21 06:30 05/01/21 08:00 05/01/21 13:03 Glucose (Fingerstick) 218 mg/dL (70-99) 244 mg/dL (70-99) Heparin Anti-Xa Act, Unfractionated 0.52 IU/mL (0.30-0.70) O2 Saturation 96 % (92-99) Arterial Blood pH 7.43 (7.35-7.45) Arterial Blood pCO2 at Patient Temp 39 mmHg (35-46) Arterial Blood pO2 at Patient Temp 85 mmHg (65-108) Arterial Blood HCO3 25 mmol/L (21-28) Arterial Blood Base Excess 1 mmol/L (-3-3) FiO2 40%+5 Test 05/01/21 18:09 05/02/21 01:02 05/02/21 05:20 05/02/21 05:28 Glucose (Fingerstick) 284 mg/dL (70-99) 229 mg/dL (70-99) 211 mg/dL (70-99) White Blood Count 16.9 x10^3/uL (4.0-11.0) Red Blood Count 3.20 x10^6/uL (4.30-5.70) Hemoglobin 8.4 g/dL (13.0-17.5) Hematocrit 25.9 % (39.0-53.0) Mean Corpuscular Volume 81 fL (79-100) Mean Corpuscular Hemoglobin 26 pg (25-35) Mean Corpuscular Hemoglobin Concent 32 g/dL (31-37) Red Cell Distribution Width 15.9 % (11.5-14.5) Platelet Count 315 x10^3/uL (140-400) Neutrophils (%) (Auto) 77 % (31-73) Lymphocytes (%) (Auto) 13 % (24-48) Monocytes (%) (Auto) 10 % (0-9) Eosinophils (%) (Auto) 0 % (0-3) Basophils (%) (Auto) 0 % (0-3) Neutrophils # (Auto) 13.0 x10^3/uL (1.8-7.7) Lymphocytes # (Auto) 2.1 x10^3/uL (1.0-4.8) Monocytes # (Auto) 1.7 x10^3/uL (0.0-1.1) Eosinophils # (Auto) 0.1 x10^3/uL (0.0-0.7) Basophils # (Auto) 0.0 x10^3/uL (0.0-0.2) Sodium Level 135 mmol/L (136-145) Potassium Level 3.7 mmol/L (3.5-5.1) Chloride Level 101 mmol/L (98-107) Carbon Dioxide Level 28 mmol/L (21-32) Anion Gap 6 (6-14) Blood Urea Nitrogen 69 mg/dL (8-26) Creatinine 3.0 mg/dL (0.7-1.3) Estimated GFR (Cockcroft-Gault) 24.9 Glucose Level 188 mg/dL (70-99) Calcium Level 8.2 mg/dL (8.5-10.1) Phosphorus Level 4.4 mg/dL (2.6-4.7) Magnesium Level 2.4 mg/dL (1.8-2.4) Albumin 1.5 g/dL (3.4-5.0) Test 05/02/21 08:14 O2 Saturation 91 % (92-99) Arterial Blood pH 7.45 (7.35-7.45) Arterial Blood pCO2 at Patient Temp 38 mmHg (35-46) Arterial Blood pO2 at Patient Temp 64 mmHg (65-108) Arterial Blood HCO3 26 mmol/L (21-28) Arterial Blood Base Excess 2 mmol/L (-3-3) FiO2 40 Laboratory Tests Test 05/01/21 13:03 05/01/21 18:09 05/02/21 01:02 05/02/21 05:20 Glucose (Fingerstick) 244 mg/dL (70-99) 284 mg/dL (70-99) 229 mg/dL (70-99) White Blood Count 16.9 x10^3/uL (4.0-11.0) Red Blood Count 3.20 x10^6/uL (4.30-5.70) Hemoglobin 8.4 g/dL (13.0-17.5) Hematocrit 25.9 % (39.0-53.0) Mean Corpuscular Volume 81 fL (79-100) Mean Corpuscular Hemoglobin 26 pg (25-35) Mean Corpuscular Hemoglobin Concent 32 g/dL (31-37) Red Cell Distribution Width 15.9 % (11.5-14.5) Platelet Count 315 x10^3/uL (140-400) Neutrophils (%) (Auto) 77 % (31-73) Lymphocytes (%) (Auto) 13 % (24-48) Monocytes (%) (Auto) 10 % (0-9) Eosinophils (%) (Auto) 0 % (0-3) Basophils (%) (Auto) 0 % (0-3) Neutrophils # (Auto) 13.0 x10^3/uL (1.8-7.7) Lymphocytes # (Auto) 2.1 x10^3/uL (1.0-4.8) Monocytes # (Auto) 1.7 x10^3/uL (0.0-1.1) Eosinophils # (Auto) 0.1 x10^3/uL (0.0-0.7) Basophils # (Auto) 0.0 x10^3/uL (0.0-0.2) Sodium Level 135 mmol/L (136-145) Potassium Level 3.7 mmol/L (3.5-5.1) Chloride Level 101 mmol/L (98-107) Carbon Dioxide Level 28 mmol/L (21-32) Anion Gap 6 (6-14) Blood Urea Nitrogen 69 mg/dL (8-26) Creatinine 3.0 mg/dL (0.7-1.3) Estimated GFR (Cockcroft-Gault) 24.9 Glucose Level 188 mg/dL (70-99) Calcium Level 8.2 mg/dL (8.5-10.1) Phosphorus Level 4.4 mg/dL (2.6-4.7) Magnesium Level 2.4 mg/dL (1.8-2.4) Albumin 1.5 g/dL (3.4-5.0) Test 05/02/21 05:28 05/02/21 08:14 Glucose (Fingerstick) 211 mg/dL (70-99) O2 Saturation 91 % (92-99) Arterial Blood pH 7.45 (7.35-7.45) Arterial Blood pCO2 at Patient Temp 38 mmHg (35-46) Arterial Blood pO2 at Patient Temp 64 mmHg (65-108) Arterial Blood HCO3 26 mmol/L (21-28) Arterial Blood Base Excess 2 mmol/L (-3-3) FiO2 40 Medications Active Scripts Medications Dose Route/Sig Max Daily Dose Days Date Category Glyburide 2.5 Mg Tablet 1 Tab PO DAILY 04/19/21 Rx Polyethylene Glycol 3350 17 Gm Powd.pack 17 Gm PO DAILY 04/19/21 Rx Dok (Docusate Sodium) 100 Mg Capsule 100 Mg PO PRN DAILY PRN 04/19/21 Rx Bisacodyl 5 Mg Tablet.dr 5 Mg PO PRN DAILY PRN 04/19/21 Rx Acetaminophen 325 Mg Tablet 650 Mg PO PRN Q4HRS PRN 04/19/21 Rx Aspirin Ec (Aspirin) 81 Mg Tablet.dr 81 Mg PO DAILYWBKFT 04/19/21 Rx Hydralazine Hcl 25 Mg Tablet 25 Mg PO QID 30 04/19/21 Rx Fenofibrate 54 Mg Tablet 1 Tab PO DAILY 04/17/21 Reported Potassium Chloride (Potassium Chloride) 20 Meq Tablet.er 20 Meq PO DAILY 04/17/21 Reported Coreg (Carvedilol) 12.5 Mg Tablet 37.5 Mg PO BIDWMEALS 04/17/21 Reported Rosuvastatin Calcium 40 Mg Tablet 40 Mg PO QHS 04/17/21 Reported Gabapentin (Gabapentin) 100 Mg Capsule 200 Mg PO BID 04/17/21 Reported Montelukast Sodium Tablet (Montelukast Sodium) 10 Mg Tablet 10 Mg PO HS 04/17/21 Reported Protonix (Pantoprazole Sodium) 20 Mg Tablet. 2 Tab PO DAILY 04/17/21 Reported Amlodipine Besylate 5 Mg Tablet 5 Mg PO DAILY 04/17/21 Reported Furosemide 40 Mg Tablet 1 Tab PO DAILY 04/17/21 Reported Proair Hfa Inhaler (Albuterol Sulfate) 8.5 Gm Hfa.aer.ad 2 Puff IH PRN Q4-6HRS PRN 21 04/16/21 Reported Advair 100-50 Diskus (Fluticasone/Salmeterol) 1 Each Disk.w.dev 1 Puff IH BID 04/16/21 Reported Comments Chest x-ray 04/30 reviewed. Bilateral improving infiltrates as well as improving pleural effusion. Impression . IMPRESSION: 1. Acute hypoxic respiratory failure, multifactorial secondary to bilateral diffuse interstitial infiltrates. --COVID-[address] chest with bilateral diffuse interstitial infiltrates without any significant pleural effusion. Consistent with viral pneumonia. 3. History of recent hospitalization for abdominal pain. He was supposed to have cardiac testing and outpatient stress test. Now, he is hospitalized. Echo with normal ejection fraction and moderate left ventricular hypertrophy. 4. Non-ST segment elevation SD 5. History of tobacco use, details of length not available. 6. Chronic kidney disease. Worsening ILDA on CKD, on HD now 7. Increasing metabolic acidosis secondary to ILDA. Improved with hemodialysis. 8. Abnormal chest x-ray Plan . Updated 05/02 Discussed with RN, continue current support Empiric antibiotics Steroids Completed course of remdesivir Hemodialysis per nephrology DVT GI prophylaxis Nutritional support ABG noted, oxygenation marginal. Updated 05/01 Patient currently on 40% FiO2 5 of PEEP, Discussed with the nurse, and will decrease sedation, possible spontaneous trial Continue empiric antibiotics Steroids Status post remdesivir Hemodialysis per nephrology Nutritional support DVT GI prophylaxis Labs and chest x-ray reviewed, no new x-ray for today. Updated 04/30/2021 Continue current vent support assist-control mode 20/500/45%/5 Once down to 40% FiO2, will try weaning sedation and assess mental status. Curr ently having some paradoxical breathing. Will increase sedation. Add as needed paralytics. ABG/chest x-ray reviewed, Continue empiric antibiotics with cefepime. Continue steroids. Leukocytosis without fever likely related to steroids. Continue remdesivir Follow cardiology recommendations continue heparin drip Follow nephrology recs . Dialysis with increased ultrafiltration today. COVID-19 positive Tolerating tube feeding Discussed with nephrology. Patient initiated on hemodialysis. DVT/GI prophylaxis Discussed with RN and RT Critical care time 30 minutes ADELSO AVILA MD May 02, 2021 09:00
--- NOTE | 2021-05-02 10:23 | PDOC ---
Renal-Progress Notes Subjective Notes Notes ON THE VENT History of Present Illness Hx of present illness REMAINS CRITICALLY ILL Vitals Vitals Vital Signs Date Time Temp Pulse Resp B/P (MAP) Pulse Ox O2 Delivery O2 Flow Rate FiO2 05/02/21 07:19 82 184/77 05/02/21 07:00 20 93 Ventilator 05/02/21 04:00 98.8 98.8 Weight Weight [ ] I.O. Intake and Output Intake and Output 05/02/21 07:00 Intake Total 1610 ml Output Total 1390 ml Balance 220 ml IV Total 98 ml Tube Feeding 1111 ml Other 401 ml Output Urine Total 1390 ml Labs Labs Laboratory Tests Test 05/01/21 13:03 05/01/21 18:09 05/02/21 01:02 05/02/21 05:20 Glucose (Fingerstick) 244 mg/dL (70-99) 284 mg/dL (70-99) 229 mg/dL (70-99) White Blood Count 16.9 x10^3/uL (4.0-11.0) Red Blood Count 3.20 x10^6/uL (4.30-5.70) Hemoglobin 8.4 g/dL (13.0-17.5) Hematocrit 25.9 % (39.0-53.0) Mean Corpuscular Volume 81 fL (79-100) Mean Corpuscular Hemoglobin 26 pg (25-35) Mean Corpuscular Hemoglobin Concent 32 g/dL (31-37) Red Cell Distribution Width 15.9 % (11.5-14.5) Platelet Count 315 x10^3/uL (140-400) Neutrophils (%) (Auto) 77 % (31-73) Lymphocytes (%) (Auto) 13 % (24-48) Monocytes (%) (Auto) 10 % (0-9) Eosinophils (%) (Auto) 0 % (0-3) Basophils (%) (Auto) 0 % (0-3) Neutrophils # (Auto) 13.0 x10^3/uL (1.8-7.7) Lymphocytes # (Auto) 2.1 x10^3/uL (1.0-4.8) Monocytes # (Auto) 1.7 x10^3/uL (0.0-1.1) Eosinophils # (Auto) 0.1 x10^3/uL (0.0-0.7) Basophils # (Auto) 0.0 x10^3/uL (0.0-0.2) Sodium Level 135 mmol/L (136-145) Potassium Level 3.7 mmol/L (3.5-5.1) Chloride Level 101 mmol/L (98-107) Carbon Dioxide Level 28 mmol/L (21-32) Anion Gap 6 (6-14) Blood Urea Nitrogen 69 mg/dL (8-26) Creatinine 3.0 mg/dL (0.7-1.3) Estimated GFR (Cockcroft-Gault) 24.9 Glucose Level 188 mg/dL (70-99) Calcium Level 8.2 mg/dL (8.5-10.1) Phosphorus Level 4.4 mg/dL (2.6-4.7) Magnesium Level 2.4 mg/dL (1.8-2.4) Albumin 1.5 g/dL (3.4-5.0) Test 05/02/21 05:28 05/02/21 08:14 Glucose (Fingerstick) 211 mg/dL (70-99) O2 Saturation 91 % (92-99) Arterial Blood pH 7.45 (7.35-7.45) Arterial Blood pCO2 at Patient Temp 38 mmHg (35-46) Arterial Blood pO2 at Patient Temp 64 mmHg (65-108) Arterial Blood HCO3 26 mmol/L (21-28) Arterial Blood Base Excess 2 mmol/L (-3-3) FiO2 40 Micro Micro Microbiology 04/24/21 Blood Culture - Final, Complete NO GROWTH AFTER 5 DAYS Review of Systems Constitutional: yes: unresponsive, other (UNABLE TO OBTAIN) Physical Exam General Appearance: other (ON THE VENT) Respiratory: decreased breath sounds Heart: S1S2 Abdomen: bowel sounds present Genitourinary: bladder flat Extremities: atrophy Neurology: other (sedated) Musculoskeletal: Other Assessment Assessment IMP [id number] CKD - SUSPECT STAGE 3 ACUTE HYPOXIC RESP FAILURE-FIO2 40 +5 PEEP COVID 19 PNEUMONIA MET ACIDOSIS-BETTER LEUCOCYTOSIS ANEMIA PLAN REMAINS CRITICALLY ILL VENT SUPPORT NUTRITION-NEPRO TF HOLD BETTY DUE TO HYPERCOAGULABLE STATE PRESSORS NEEDED STEROIDS/REMDESIVIR HD TODAY UF ABOUT 3.0 LITERS CONT TO MONITOR FOR RENAL RECOVERY TRIAL OF IV LASIZ WILL FOLLOW JEANINE NEWTON MD May 02, 2021 10:23
--- NOTE | 2021-05-02 10:38 | PDOC ---
CAMRYN DRAPER INTERIOR DESIGN CONSULTANT 05/02/21 1038: CARDIO Progress Notes Date and Time Date of Service 05/02/21 Time of Evaluation 1030 Subjective Subjective: Other (intubated ) Vitals Vitals Vital Signs Date Time Temp Pulse Resp B/P (MAP) Pulse Ox O2 Delivery O2 Flow Rate FiO2 05/02/21 07:19 82 184/77 05/02/21 07:00 20 93 Ventilator 05/02/21 04:00 98.8 98.8 Weight Weight [ ] Input and Output Intake and Output Intake and Output 05/02/21 07:00 Intake Total 1610 ml Output Total 1390 ml Balance 220 ml IV Total 98 ml Tube Feeding 1111 ml Other 401 ml Output Urine Total 1390 ml Laboratory Labs Laboratory Tests Test 05/01/21 13:03 05/01/21 18:09 05/02/21 01:02 05/02/21 05:20 Glucose (Fingerstick) 244 mg/dL (70-99) 284 mg/dL (70-99) 229 mg/dL (70-99) White Blood Count 16.9 x10^3/uL (4.0-11.0) Red Blood Count 3.20 x10^6/uL (4.30-5.70) Hemoglobin 8.4 g/dL (13.0-17.5) Hematocrit 25.9 % (39.0-53.0) Mean Corpuscular Volume 81 fL (79-100) Mean Corpuscular Hemoglobin 26 pg (25-35) Mean Corpuscular Hemoglobin Concent 32 g/dL (31-37) Red Cell Distribution Width 15.9 % (11.5-14.5) Platelet Count 315 x10^3/uL (140-400) Neutrophils (%) (Auto) 77 % (31-73) Lymphocytes (%) (Auto) 13 % (24-48) Monocytes (%) (Auto) 10 % (0-9) Eosinophils (%) (Auto) 0 % (0-3) Basophils (%) (Auto) 0 % (0-3) Neutrophils # (Auto) 13.0 x10^3/uL (1.8-7.7) Lymphocytes # (Auto) 2.1 x10^3/uL (1.0-4.8) Monocytes # (Auto) 1.7 x10^3/uL (0.0-1.1) Eosinophils # (Auto) 0.1 x10^3/uL (0.0-0.7) Basophils # (Auto) 0.0 x10^3/uL (0.0-0.2) Sodium Level 135 mmol/L (136-145) Potassium Level 3.7 mmol/L (3.5-5.1) Chloride Level 101 mmol/L (98-107) Carbon Dioxide Level 28 mmol/L (21-32) Anion Gap 6 (6-14) Blood Urea Nitrogen 69 mg/dL (8-26) Creatinine 3.0 mg/dL (0.7-1.3) Estimated GFR (Cockcroft-Gault) 24.9 Glucose Level 188 mg/dL (70-99) Calcium Level 8.2 mg/dL (8.5-10.1) Phosphorus Level 4.4 mg/dL (2.6-4.7) Magnesium Level 2.4 mg/dL (1.8-2.4) Albumin 1.5 g/dL (3.4-5.0) Test 05/02/21 05:28 05/02/21 08:14 Glucose (Fingerstick) 211 mg/dL (70-99) O2 Saturation 91 % (92-99) Arterial Blood pH 7.45 (7.35-7.45) Arterial Blood pCO2 at Patient Temp 38 mmHg (35-46) Arterial Blood pO2 at Patient Temp 64 mmHg (65-108) Arterial Blood HCO3 26 mmol/L (21-28) Arterial Blood Base Excess 2 mmol/L (-3-3) FiO2 40 Microbiology Micro Microbiology 04/24/21 Blood Culture - Final, Complete NO GROWTH AFTER 5 DAYS Review of Systems Constitutional: yes: unresponsive, other (UNABLE TO OBTAIN) Physical Exam HEENT: Neck Supple W Full Motion Chest: Symmetric LUNGS: Other (MV) Heart: RRR (SR with PAC's, PVCs) Abdomen: Other (soft) Extremities: Other (1+ bilateral LE edema ) Neurology: other (sedated) Assessment Assessment 1. Acute respiratory failure secondary to CHF, s/p intubation. COVID + 2. Acute on chronic diastolic CHF 3. Hypertensive urgency; better controlled 4. NSTEMI; trop highest 2.8. Echo last week with preserved LV systolic function with moderate LVH. Most probable type II, demand ischemia in setting of above, although underling ischemic cannot be ruled out 5. ? CAD; details unknown 6. Hyperlipidemia; statin 7. 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 Diabetes, II 9. Leukocytosis 10. H/o bilateral subclavian stenosis s/p left subclavian sent placement complicated by retroperitoneal hematoma s/p evacuation in 08/2015. 11. New AFIB with RVR: currently SR Recommendations ASA, statin Metoprolol for rate control Amiodarone for rhyhtm maintenance SQ heparin Hydralazine, Labetalol IV PRN Fluid offloading via HD Ongoing lung optimization, treatment of COVID PNA as per pulm Supportive care Justicifation of Admission Dx: Justifications for Admission: Justification of Admission Dx: Yes Aspiration Pneumonia: Hemodynamic Instability DESTINY CAMPBELL MD 05/02/212034: CARDIO Progress Notes Assessment Assessment Agree with RN PROCEDURE's assessment and plan. Acute resp failure secondary to combination of ac on chr diast HF and covid pneumonia Continue fluid removal with HD per nephrology team New onset AF maintaining SR NSTEMI prob demand ischemia Recent echo showed normal LVF Ischemic eval could be considered once active issues resolve CAMRYN DRAPER APRN May 02, 2021 10:38 DESTINY CAMPBELL MD May 02, 2021 20:35
[2021-05-02] MEDS ORDERED: FUROSEMIDE 100 MG/10 ML VIAL. IVP ONE (10:45)
[2021-05-02] MEDS ORDERED: IV NORMAL SALINE 1000ML BAG 1,000 ML IV PRN ×2 (11:30)
[2021-05-02] MEDS ORDERED: 0.9 % SODIUM CHLORIDE 10 ML DISP.SYRIN. IV PRN ×2 (11:30)
[2021-05-02] MEDS ORDERED: ALBUMIN HUMAN 25% 200 ML IV PRN (11:30)
[2021-05-02] MEDS ORDERED: DIALYSIS PATIENT. MC PRN ×2 (11:30)
--- NOTE | 2021-05-02 11:45 | PDOC ---
[employer] PROGRESS NOTE Date of Service DOS: DATE: 05/02/21 TIME: 11:44 Chief Complaint Chief Complaint Respiratory failure requiring intubation [place] [id number] Acute ME A. fib SIRS Hypertension with hypertensive urgency Hyperlipidemia CKD Diabetes History of bilateral subclavian stenosis History of marijuana use Severe protein calorie malnutrition History of Present Illness History of Present Illness 05/02/2021 Patient seen and examined in the [place] [address] ICU He is sedated with propofol fentanyl and Versed Ventilator settings as follow AC/20/500/40 percent with 5 of PEEP Has Nieves to bedside drainage Chart reviewed Discussed with RN He remains critically ill 05/01/2021 Patient seen and examined in the [place] [address] ICU He is still intubated AC/20/500/40 percent with 5 of PEEP In A. fib Sedated with propofol fentanyl and Versed Has a heparin drip Missy with RN Chart reviewed He remains critically 04/30/2020 Patient seen and examined in the [place] [address] ICU He remains on the vent AC/20/500/40 5% with 5 PEEP Currently on dialysis Has OG feeds running Has a Nieves to bedside drainage Sedated with propofol and fentanyl Reviewed chart Discussed with RN He remains critically ill Mr Cunha is a 75 yo male w/ PMHx CAD, HTN, Hyperlipidemia, subclavian steel syndrome, subclavian stenosis s/p left subclavian sent placement complicated by retroperitoneal hematoma s/p evacuation in 08/2015), asthma, BART, CKD, DM2 who presented from home with home health care noted that he was short of breath and valverde with O2 saturations less than 89% as low as 84% not improved with nasal cannulated oxygen placed on CPAP and brought to ED for further care. He was just discharged from the hospital a week ago on April 19, 2021 for abdominal pain and was going for further cardiac testing with outpatient stress testing scheduled on May 28, 2021. Had echocardiogram April 17, 2021 with normal-appearing EF with moderate concentric LVH no significant valvular abnormalities. WBC 20, Hb 10.7, platelets 268, NA 140, K3.8, BUN 21, CR 2.9, glucose 162, albumin 3, troponin I 1.372, NT proBNP 33,318. EKG appears sinus tachycardia rate of 105 bpm with multiple PACs small ST depressions in lead II and V5. TWI in V6. Chest radiograph with diffuse interstitial and alveolar opacities and ET tube 5.8 cm above the leilani. Due to worsening respiratory status ED physician elected to intubate patient. Seen postintubation. Blood pressure little low after propofol bolus, but improved. Significant white frothy sputum per ET tube. Admitted to ICU for further care 04/29/2021: Afebrile, remains on vent at FiO2 45%, PEEP 5. WBC 20.4. Hemodialysis per nephrology. We will continue treatment with empiric antibiotics, remdesivir, and steroids. Continue heparin infusion and supportive care. Critical care time 30 minutes reviewing chart, review labs, review imaging, discussion with RN. 04/28/2021: Afebrile. FiO2 50%, PEEP 5. Nontunneled HD catheter placed yesterday due to worsening kidney function; eGFR 16 (CKD4). Chest x-ray showed unchanged interstitial opacities. Continue empiric antibiotics, steroids, and remdesivir. Continue heparin infusion, and continue to follow cardiology recommendations on new diagnosis of A. fib. Critical care time 30 minutes reviewing chart, review labs, review imaging, discussion with RN. 04/27/2021: Afebrile. On vent with FiO2 50%, PEEP 5. Troponin 2.8 yesterday; probable type II, demand ischemia. New onset A. fib. Continue heparin drip and as needed digoxin, per cardiology. Continue treatment with remdesivir, steroids, and prophylactic antibiotics. CBG 323 this morning; will add basal insulin. Critical care 30 minutes spent reviewing labs, reviewing imaging, reviewing charts, and discussion with RN. 04/26/2021: COVID-19 positive. Febrile overnight that was managed with cooling blankets. On vent with FiO2 50%, PEEP 5. Per cardiology, elevated troponins likely secondary to demand ischemia; continue heparin drip per cardiology. Maintain fluid balance and avoid nephrotoxins. Continue treatment with remdesivir, steroids, and prophylactic antibiotics. 30 minutes critical care time spent reviewing charts, reviewing labs, reviewing imaging, and discussion with RN. 04/25/2021: On vent FiO2 50, PEEP 5. Febrile, T-max 103.3. Patient was initiated on cooling blankets. Procalcitonin 0.13. Continue coverage for hospital-acquired pneumonia with cefepime. MRSA PCR pending. Critical care time 30 minutes spent reviewing charts, reviewing labs, review of imaging, discussion with RN. Vitals/I&O Vitals/I&O: Vital Signs Date Time Temp Pulse Resp B/P (MAP) Pulse Ox O2 Delivery O2 Flow Rate FiO2 05/02/21 10:36 96 Ventilator 05/02/21 10:00 98.8 58 20 166/74 (104) 98.8 I & O 05/01/21 05/01/21 05/02/21 15:00 23:00 07:00 Intake Total 200 ml 1210 ml 200 ml Output Total 200 ml 840 ml 350 ml Balance 0 ml 370 ml -150 ml Physical Exam General: Other (Intubated sedated) Heart: Other (Tachycardic) Abdomen: Soft, Other (obese) Extremities: Other (trace LE edema ) Skin: No rashes, No breakdown, No significant lesion Labs Labs: Laboratory Tests Test 05/01/21 13:03 05/01/21 18:09 05/02/21 01:02 05/02/21 05:20 Glucose (Fingerstick) 244 mg/dL (70-99) 284 mg/dL (70-99) 229 mg/dL (70-99) White Blood Count 16.9 x10^3/uL (4.0-11.0) Red Blood Count 3.20 x10^6/uL (4.30-5.70) Hemoglobin 8.4 g/dL (13.0-17.5) Hematocrit 25.9 % (39.0-53.0) Mean Corpuscular Volume 81 fL (79-100) Mean Corpuscular Hemoglobin 26 pg (25-35) Mean Corpuscular Hemoglobin Concent 32 g/dL (31-37) Red Cell Distribution Width 15.9 % (11.5-14.5) Platelet Count 315 x10^3/uL (140-400) Neutrophils (%) (Auto) 77 % (31-73) Lymphocytes (%) (Auto) 13 % (24-48) Monocytes (%) (Auto) 10 % (0-9) Eosinophils (%) (Auto) 0 % (0-3) Basophils (%) (Auto) 0 % (0-3) Neutrophils # (Auto) 13.0 x10^3/uL (1.8-7.7) Lymphocytes # (Auto) 2.1 x10^3/uL (1.0-4.8) Monocytes # (Auto) 1.7 x10^3/uL (0.0-1.1) Eosinophils # (Auto) 0.1 x10^3/uL (0.0-0.7) Basophils # (Auto) 0.0 x10^3/uL (0.0-0.2) Sodium Level 135 mmol/L (136-145) Potassium Level 3.7 mmol/L (3.5-5.1) Chloride Level 101 mmol/L (98-107) Carbon Dioxide Level 28 mmol/L (21-32) Anion Gap 6 (6-14) Blood Urea Nitrogen 69 mg/dL (8-26) Creatinine 3.0 mg/dL (0.7-1.3) Estimated GFR (Cockcroft-Gault) 24.9 Glucose Level 188 mg/dL (70-99) Calcium Level 8.2 mg/dL (8.5-10.1) Phosphorus Level 4.4 mg/dL (2.6-4.7) Magnesium Level 2.4 mg/dL (1.8-2.4) Albumin 1.5 g/dL (3.4-5.0) Test 05/02/21 05:28 05/02/21 08:14 Glucose (Fingerstick) 211 mg/dL (70-99) O2 Saturation 91 % (92-99) Arterial Blood pH 7.45 (7.35-7.45) Arterial Blood pCO2 at Patient Temp 38 mmHg (35-46) Arterial Blood pO2 at Patient Temp 64 mmHg (65-108) Arterial Blood HCO3 26 mmol/L (21-28) Arterial Blood Base Excess 2 mmol/L (-3-3) FiO2 40 Assessment and Plan Assessmemt and Plan Problems Medical Problems: (1) Elevated troponin Status: Acute (2) Person under investigation for COVID-19 Status: Acute (3) Pulmonary edema Status: Acute Respiratory failure requiring intubation COVID-19 Acute ME A. fib SIRS Hypertension with hypertensive urgency Hyperlipidemia CKD Diabetes History of bilateral subclavian stenosis History of marijuana use Severe protein calorie malnutrition Plan Covid protocol ICU monitoring Heparin drip Respiratory isolation Continue Nieves Vent weaning Home meds Trend labs DVT prophylaxis Full code Appreciate subspecialist input Prognosis guarded CC time 34-minute Comment Review of Relevant I have reviewed the following items juanita (where applicable) has been applied. Medications: Current Medications Medications (Trade) Dose Ordered Sig/Jodie Route PRN Reason Start Time Stop Time Status Last Admin Dose Admin Heparin Sodium (Porcine) (Heparin Sodium) 5,000 unit Q8HRS SQ 05/01/21 14:00 05/02/21 07:05 Justifications for Admission General Conditions Altered mental status?: Yes Justification of admission: Patient has tachycardia (> 100 beats per minute) or hypotension (SBP < 90 mm Hg) leading to inadequate systemic perfusion as indicated by severe/persistent altered mental status. Other Justification ELENI RENTERIA III DO May 02, 2021 11:45
[2021-05-02 11:47] LABS: % EOS 1 % (0-5); % LYMPHS 26 % (24-48); % MONOS 3 % (0-10); % SEGS 70 % (35-66); PLT ESTIMATE ADEQUATE (ADEQUATE)
[2021-05-02] MEDS: PROPOFOL 100 ML IV PRN ×2 (12:16→23:23)
--- NOTE | 2021-05-02 15:50 | NUR ---
SS following up with discharge planning. SS reviewed pt chart and discussed with pt RN. Pt is currently on the vent at 40%. COVID19 positive. Pt on IV Cefepime. Pt on IV Lasix and IV Decadron. Pt on Propofol, Versed, and Fentanyl. Hemodialysis today. Not stable. SS will continue to follow for discharge planning.
[2021-05-02] MEDS: FUROSEMIDE 40 MG/4 ML VIAL. IVP SCH ×2 (17:41→21:41)
--- NOTE | 2021-05-02 18:51 | NUR ---
Wound Care; Pt receiving HD, will visit again 05/03/21
[2021-05-02] MEDS: ATORVASTATIN CALCIUM 40 MG TABLET. PO SCH (21:00)
[2021-05-02] MEDS ORDERED: NOREPINEPHRINE VIAL 8 MG in IV DEXTROSE 5% 250 ML IV PRN (21:00)
[2021-05-02] MEDS: MONTELUKAST SODIUM 10 MG TABLET. PO SCH (21:22)
[2021-05-02] MEDS: INSULIN GLARGINE SYRINGE. SQ SCH (21:23)
--- NOTE | 2021-05-02 21:41 | NUR ---
Non-administered Lasix as patient is now on Levophed for blood pressures 50's/30's. Patient had dialysis today in which it was reported that 3K were removed, patient was given Lopressor at 1800. Blood pressures have steadily been declining. During 1999 assessment it was noted that the patient had unequal pupils, left being 7 and right being 2. Non-administering heparin as patient may have unknown bleeding AEB low blood pressure and changes to pupillary response. Addendum: 05/03/21 at 0026 by GARRET BHAT RN Non-administered Lasix as patient is now on Levophed for blood pressures 50's/30's. Patient had dialysis today in which it was reported that 3K were removed, patient was given Lopressor at 1800. Blood pressures have steadily been declining.
[2021-05-02] MEDS: DEXTROSE 50% 25 GM / 50ML DISP.SYRIN. IV PRN (23:53)
[2021-05-03] VITALS (24 sets, daily range): BP systolic 102–196; BP diastolic 47–92
[2021-05-03] MEDS: DEXTROSE 50% 25 GM / 50ML DISP.SYRIN. IV PRN ×3 (01:25→04:59)
[2021-05-03 05:15] LABS: BASO % 0 % (0-3); EOS # 0.2 x10^3/uL (0.0-0.7); EOS % 1 % (0-3); HEMATOCRIT 29.3 % (39.0-53.0); HEMOGLOBIN 9.4 g/dL (13.0-17.5); LYMPH # 2.5 x10^3/uL (1.0-4.8); LYMPH % 11 % (24-48); MEAN CORPUSCULAR HEMOGLOBIN 26 pg (25-35); MEAN CORPUSCULAR HGB CONC 32 g/dL (31-37); MEAN CORPUSCULAR VOLUME 82 fL (79-100); MONO # 2.5 x10^3/uL (0.0-1.1); MONO % 11 % (0-9); NEUT # 17.1 x10^3/uL (1.8-7.7); NEUT % 77 % (31-73); PLATELET COUNT 382 x10^3/uL (140-400); RED BLOOD COUNT 3.58 x10^6/uL (4.30-5.70); WHITE BLOOD COUNT 22.3 x10^3/uL (4.0-11.0)
[2021-05-03] MEDS ORDERED: IV DEXTROSE 10% 1,000 ML IV SCH (05:15)
[2021-05-03 05:40] LABS: ALBUMIN 1.7 g/dL (3.4-5.0); ALBUMIN/GLOBULIN RATIO 0.4 (1.0-1.7); CALCIUM 8.2 mg/dL (8.5-10.1); CREATININE 2.5 mg/dL (0.7-1.3); GFR 30.7; MAGNESIUM 2.4 mg/dL (1.8-2.4); PHOSPHORUS 3.4 mg/dL (2.6-4.7); POTASSIUM 3.8 mmol/L (3.5-5.1); TOTAL BILIRUBIN 0.4 mg/dL (0.2-1.0); TOTAL PROTEIN 5.9 g/dL (6.4-8.2)
[2021-05-03] MEDS: METOPROLOL IV PUSH 5 MG/5 ML VIAL. IVP SCH ×3 (06:00→18:00)
[2021-05-03] MEDS: INSULIN LISPRO 300 UNITS/3 ML VIAL. SQ SCH ×4 (06:00→18:35)
[2021-05-03] MEDS: FUROSEMIDE 40 MG/4 ML VIAL. IVP SCH ×3 (06:19→21:55)
[2021-05-03] MEDS: HEPARIN for SUB-Q USE 5,000 UNIT/ML VIAL. SQ SCH ×3 (06:20→21:56)
[2021-05-03] MEDS: PROPOFOL 100 ML IV PRN ×5 (06:31→23:26)
[2021-05-03 08:21] LABS: BASE EXCESS COOX -1 mmol/L (-3-3); HCO3 COOX 23 mmol/L (21-28); METHEMOGLOBIN 0.3 % (0.0-1.9); OXYHEMOGLOBIN 84.8 %; PCO2 COOX 34 mmHg (35-46); SAT O2 COOX 85 % (92-99)
[2021-05-03 08:22] LABS: PO2 COOX 49 mmHg (65-108)
--- NOTE | 2021-05-03 08:42 | PDOC ---
PULMONARY PROGRESS NOTES DATE: 05/03/21 TIME: 08:37 Subjective Patient dialyzed yesterday Nurse reports blood sugars low overnight, blood pressure low overnight, patient started on Levophed Currently on 50% FiO2 5 of PEEP Vitals Vital Signs Date Time Temp Pulse Resp B/P (MAP) Pulse Ox O2 Delivery O2 Flow Rate FiO2 05/03/21 07:40 90 Ventilator 05/03/21 06:00 79 20 175/92 (119) 05/03/21 04:00 99.7 99.7 Comments Visual exam done due to COVID-19. Intubated and sedated No paradoxical breathing. Labs Laboratory Tests Test 05/01/21 13:03 05/01/21 18:09 05/02/21 01:02 05/02/21 05:20 Glucose (Fingerstick) 244 mg/dL (70-99) 284 mg/dL (70-99) 229 mg/dL (70-99) White Blood Count 16.9 x10^3/uL (4.0-11.0) Red Blood Count 3.20 x10^6/uL (4.30-5.70) Hemoglobin 8.4 g/dL (13.0-17.5) Hematocrit 25.9 % (39.0-53.0) Mean Corpuscular Volume 81 fL (79-100) Mean Corpuscular Hemoglobin 26 pg (25-35) Mean Corpuscular Hemoglobin Concent 32 g/dL (31-37) Red Cell Distribution Width 15.9 % (11.5-14.5) Platelet Count 315 x10^3/uL (140-400) Neutrophils (%) (Auto) 77 % (31-73) Lymphocytes (%) (Auto) 13 % (24-48) Monocytes (%) (Auto) 10 % (0-9) Eosinophils (%) (Auto) 0 % (0-3) Basophils (%) (Auto) 0 % (0-3) Neutrophils # (Auto) 13.0 x10^3/uL (1.8-7.7) Lymphocytes # (Auto) 2.1 x10^3/uL (1.0-4.8) Monocytes # (Auto) 1.7 x10^3/uL (0.0-1.1) Eosinophils # (Auto) 0.1 x10^3/uL (0.0-0.7) Basophils # (Auto) 0.0 x10^3/uL (0.0-0.2) Segmented Neutrophils % 70 % (35-66) Lymphocytes % 26 % (24-48) Monocytes % 3 % (0-10) Eosinophils % 1 % (0-5) Platelet Estimate Adequate (ADEQUATE) Sodium Level 135 mmol/L (136-145) Potassium Level 3.7 mmol/L (3.5-5.1) Chloride Level 101 mmol/L (98-107) Carbon Dioxide Level 28 mmol/L (21-32) Anion Gap 6 (6-14) Blood Urea Nitrogen 69 mg/dL (8-26) Creatinine 3.0 mg/dL (0.7-1.3) Estimated GFR (Cockcroft-Gault) 24.9 Glucose Level 188 mg/dL (70-99) Calcium Level 8.2 mg/dL (8.5-10.1) Phosphorus Level 4.4 mg/dL (2.6-4.7) Magnesium Level 2.4 mg/dL (1.8-2.4) Albumin 1.5 g/dL (3.4-5.0) Test 05/02/21 05:28 05/02/21 08:14 05/02/21 14:57 05/02/21 18:07 Glucose (Fingerstick) 211 mg/dL (70-99) 186 mg/dL (70-99) 132 mg/dL (70-99) O2 Saturation 91 % (92-99) Arterial Blood pH 7.45 (7.35-7.45) Arterial Blood pCO2 at Patient Temp 38 mmHg (35-46) Arterial Blood pO2 at Patient Temp 64 mmHg (65-108) Arterial Blood HCO3 26 mmol/L (21-28) Arterial Blood Base Excess 2 mmol/L (-3-3) FiO2 40 Test 05/02/21 23:48 05/02/21 23:59 05/03/21 01:20 05/03/21 02:02 Glucose (Fingerstick) 17 mg/dL (70-99) 131 mg/dL (70-99) 37 mg/dL (70-99) 89 mg/dL (70-99) Test 05/03/21 02:22 05/03/21 03:26 05/03/21 04:07 05/03/21 04:54 Glucose (Fingerstick) 80 mg/dL (70-99) 51 mg/dL (70-99) 74 mg/dL (70-99) 66 mg/dL (70-99) Test 05/03/21 04:58 05/03/21 06:23 05/03/21 08:22 White Blood Count 22.3 x10^3/uL (4.0-11.0) Red Blood Count 3.58 x10^6/uL (4.30-5.70) Hemoglobin 9.4 g/dL (13.0-17.5) Hematocrit 29.3 % (39.0-53.0) Mean Corpuscular Volume 82 fL (79-100) Mean Corpuscular Hemoglobin 26 pg (25-35) Mean Corpuscular Hemoglobin Concent 32 g/dL (31-37) Red Cell Distribution Width 16.0 % (11.5-14.5) Platelet Count 382 x10^3/uL (140-400) Neutrophils (%) (Auto) 77 % (31-73) Lymphocytes (%) (Auto) 11 % (24-48) Monocytes (%) (Auto) 11 % (0-9) Eosinophils (%) (Auto) 1 % (0-3) Basophils (%) (Auto) 0 % (0-3) Neutrophils # (Auto) 17.1 x10^3/uL (1.8-7.7) Lymphocytes # (Auto) 2.5 x10^3/uL (1.0-4.8) Monocytes # (Auto) 2.5 x10^3/uL (0.0-1.1) Eosinophils # (Auto) 0.2 x10^3/uL (0.0-0.7) Basophils # (Auto) 0.0 x10^3/uL (0.0-0.2) Sodium Level 137 mmol/L (136-145) Potassium Level 3.8 mmol/L (3.5-5.1) Chloride Level 102 mmol/L (98-107) Carbon Dioxide Level 30 mmol/L (21-32) Anion Gap 5 (6-14) Blood Urea Nitrogen 47 mg/dL (8-26) Creatinine 2.5 mg/dL (0.7-1.3) Estimated GFR (Cockcroft-Gault) 30.7 BUN/Creatinine Ratio 19 (6-20) Glucose Level 82 mg/dL (70-99) Calcium Level 8.2 mg/dL (8.5-10.1) Phosphorus Level 3.4 mg/dL (2.6-4.7) Magnesium Level 2.4 mg/dL (1.8-2.4) Total Bilirubin 0.4 mg/dL (0.2-1.0) Aspartate Amino Transf (AST/SGOT) 35 U/L (15-37) Alanine Aminotransferase (ALT/SGPT) 26 U/L (16-63) Alkaline Phosphatase 58 U/L (46-116) Total Protein 5.9 g/dL (6.4-8.2) Albumin 1.7 g/dL (3.4-5.0) Albumin/Globulin Ratio 0.4 (1.0-1.7) Glucose (Fingerstick) 99 mg/dL (70-99) O2 Saturation 85 % (92-99) Arterial Blood pH 7.45 (7.35-7.45) Arterial Blood pCO2 at Patient Temp 34 mmHg (35-46) Arterial Blood pO2 at Patient Temp 49 mmHg (65-108) Arterial Blood HCO3 23 mmol/L (21-28) Arterial Blood Base Excess -1 mmol/L (-3-3) Oxyhemoglobin 84.8 % Methemoglobin 0.3 % (0.0-1.9) Carbon Monoxide, Quantitative 0.2 % (0.0-1.9) FiO2 50% vent Laboratory Tests Test 05/02/21 14:57 05/02/21 18:07 05/02/21 23:48 05/02/21 23:59 Glucose (Fingerstick) 186 mg/dL (70-99) 132 mg/dL (70-99) 17 mg/dL (70-99) 131 mg/dL (70-99) Test 05/03/21 01:20 05/03/21 02:02 05/03/21 02:22 05/03/21 03:26 Glucose (Fingerstick) 37 mg/dL (70-99) 89 mg/dL (70-99) 80 mg/dL (70-99) 51 mg/dL (70-99) Test 05/03/21 04:07 05/03/21 04:54 05/03/21 04:58 05/03/21 06:23 Glucose (Fingerstick) 74 mg/dL (70-99) 66 mg/dL (70-99) 99 mg/dL (70-99) White Blood Count 22.3 x10^3/uL (4.0-11.0) Red Blood Count 3.58 x10^6/uL (4.30-5.70) Hemoglobin 9.4 g/dL (13.0-17.5) Hematocrit 29.3 % (39.0-53.0) Mean Corpuscular Volume 82 fL (79-100) Mean Corpuscular Hemoglobin 26 pg (25-35) Mean Corpuscular Hemoglobin Concent 32 g/dL (31-37) Red Cell Distribution Width 16.0 % (11.5-14.5) Platelet Count 382 x10^3/uL (140-400) Neutrophils (%) (Auto) 77 % (31-73) Lymphocytes (%) (Auto) 11 % (24-48) Monocytes (%) (Auto) 11 % (0-9) Eosinophils (%) (Auto) 1 % (0-3) Basophils (%) (Auto) 0 % (0-3) Neutrophils # (Auto) 17.1 x10^3/uL (1.8-7.7) Lymphocytes # (Auto) 2.5 x10^3/uL (1.0-4.8) Monocytes # (Auto) 2.5 x10^3/uL (0.0-1.1) Eosinophils # (Auto) 0.2 x10^3/uL (0.0-0.7) Basophils # (Auto) 0.0 x10^3/uL (0.0-0.2) Sodium Level 137 mmol/L (136-145) Potassium Level 3.8 mmol/L (3.5-5.1) Chloride Level 102 mmol/L (98-107) Carbon Dioxide Level 30 mmol/L (21-32) Anion Gap 5 (6-14) Blood Urea Nitrogen 47 mg/dL (8-26) Creatinine 2.5 mg/dL (0.7-1.3) Estimated GFR (Cockcroft-Gault) 30.7 BUN/Creatinine Ratio 19 (6-20) Glucose Level 82 mg/dL (70-99) Calcium Level 8.2 mg/dL (8.5-10.1) Phosphorus Level 3.4 mg/dL (2.6-4.7) Magnesium Level 2.4 mg/dL (1.8-2.4) Total Bilirubin 0.4 mg/dL (0.2-1.0) Aspartate Amino Transf (AST/SGOT) 35 U/L (15-37) Alanine Aminotransferase (ALT/SGPT) 26 U/L (16-63) Alkaline Phosphatase 58 U/L (46-116) Total Protein 5.9 g/dL (6.4-8.2) Albumin 1.7 g/dL (3.4-5.0) Albumin/Globulin Ratio 0.4 (1.0-1.7) Test 05/03/21 08:22 O2 Saturation 85 % (92-99) Arterial Blood pH 7.45 (7.35-7.45) Arterial Blood pCO2 at Patient Temp 34 mmHg (35-46) Arterial Blood pO2 at Patient Temp 49 mmHg (65-108) Arterial Blood HCO3 23 mmol/L (21-28) Arterial Blood Base Excess -1 mmol/L (-3-3) Oxyhemoglobin 84.8 % Methemoglobin 0.3 % (0.0-1.9) Carbon Monoxide, Quantitative 0.2 % (0.0-1.9) FiO2 50% vent Medications Active Scripts Medications Dose Route/Sig Max Daily Dose Days Date Category Glyburide 2.5 Mg Tablet 1 Tab PO DAILY 04/19/21 Rx Polyethylene Glycol 3350 17 Gm Powd.pack 17 Gm PO DAILY 04/19/21 Rx Dok (Docusate Sodium) 100 Mg Capsule 100 Mg PO PRN DAILY PRN 04/19/21 Rx Bisacodyl 5 Mg Tablet.dr 5 Mg PO PRN DAILY PRN 04/19/21 Rx Acetaminophen 325 Mg Tablet 650 Mg PO PRN Q4HRS PRN 04/19/21 Rx Aspirin Ec (Aspirin) 81 Mg Tablet.dr 81 Mg PO DAILYWBKFT 04/19/21 Rx Hydralazine Hcl 25 Mg Tablet 25 Mg PO QID 04/19/21 Rx Fenofibrate 54 Mg Tablet 1 Tab PO DAILY 04/17/21 Reported Potassium Chloride (Potassium Chloride) 20 Meq Tablet.er 20 Meq PO DAILY 04/17/21 Reported Coreg (Carvedilol) 12.5 Mg Tablet 37.5 Mg PO BIDWMEALS 04/17/21 Reported Rosuvastatin Calcium 40 Mg Tablet 40 Mg PO QHS 04/17/21 Reported Gabapentin (Gabapentin) 100 Mg Capsule 200 Mg PO BID 04/17/21 Reported Montelukast Sodium Tablet (Montelukast Sodium) 10 Mg Tablet 10 Mg PO HS 04/17/21 Reported Protonix (Pantoprazole Sodium) 20 Mg Tablet.dr 2 Tab PO DAILY 04/17/21 Reported Amlodipine Besylate 5 Mg Tablet 5 Mg PO DAILY 04/17/21 Reported Furosemide 40 Mg Tablet 1 Tab PO DAILY 04/17/21 Reported Proair Hfa Inhaler (Albuterol Sulfate) 8.5 Gm Hfa.aer.ad 2 Puff IH PRN Q4-6HRS PRN 21 04/16/21 Reported Advair 100-50 Diskus (Fluticasone/Salmeterol) 1 Each Disk.w.dev 1 Puff IH BID 04/16/21 Reported Comments Chest x-ray 04/30 reviewed. Bilateral improving infiltrates as well as improving pleural effusion. Impression . IMPRESSION: 1. Acute hypoxic respiratory failure, multifactorial secondary to bilateral diffuse interstitial infiltrates. --COVID-[address] chest with bilateral diffuse interstitial infiltrates without any significant pleural effusion. Consistent with viral pneumonia. 3. History of recent hospitalization for abdominal pain. He was supposed to have cardiac testing and outpatient stress test. Now, he is hospitalized. Echo with normal ejection fraction and moderate left ventricular hypertrophy. 4. Non-ST segment elevation [place] 5. History of tobacco use, details of length not available. 6. Chronic kidney disease. Worsening ILDA on CKD, on HD now 7. Increasing metabolic acidosis secondary to ILDA. Improved with hemodialysis. 8. Abnormal chest x-ray 9. Hypoglycemia 10. Hypotension, suspect volume deficit,/possible sepsis 11. Fever Plan . Updated 05/03 Overnight events noted spoke with nurse Fevers new, will consult ID Initiate empiric antibiotics, patient has been on cefepime Patient finished course of remdesivir Steroids Blood sugar has been waxing and waning ABG noted, spoke with RT increase FiO2 Blood cultures 5 days ago negative Repeat chest x-ray Updated 05/02 Discussed with RN, continue current support Empiric antibiotics, Steroids Completed course of remdesivir Hemodialysis per nephrology DVT GI prophylaxis Nutritional support ABG noted, oxygenation marginal. Updated 05/01 Patient currently on 40% FiO2 5 of PEEP, Discussed with the nurse, and will decrease sedation, possible spontaneous trial Continue empiric antibiotics Steroids Status post remdesivir Hemodialysis per nephrology Nutritional support DVT GI prophylaxis Labs and chest x-ray reviewed, no new x-ray for today. ADELSO AVILA MD May 03, 2021 08:42
[2021-05-03] MEDS: PANTOPRAZOLE IV PUSH 40 MG VIAL. IVP SCH (09:53)
[2021-05-03] MEDS: DEXAMETHASONE SOD PHOS 4 MG/ML VIAL IVP SCH (09:54)
[2021-05-03] MEDS: AMIODARONE HCL 200 MG TABLET. PO SCH (09:55)
[2021-05-03] MEDS: ASPIRIN CHEWABLE 81 MG TABLET. PO SCH (10:02)
[2021-05-03] MEDS: CEFEPIME HCL IV Push 1 GM VIAL. IVP SCH (10:02)
--- NOTE | 2021-05-03 10:09 | PDOC ---
Renal-Progress Notes Subjective Notes Notes STILL ON THE VENT History of Present Illness Hx of present illness O2 NEEDS ARE UP Vitals Vitals Vital Signs Date Time Temp Pulse Resp B/P (MAP) Pulse Ox O2 Delivery O2 Flow Rate FiO2 05/03/21 09:59 20 98 Ventilator 05/03/21 09:55 82 141/63 05/03/21 04:00 99.7 99.7 Weight Weight [ ] I.O. Intake and Output Intake and Output 05/03/21 07:00 Intake Total 2236 ml Output Total 1685 ml Balance 551 ml IV Total 183 ml Tube Feeding 1452 ml Other 601 ml Output Urine Total 1685 ml # Bowel Movements 2 Labs Labs Laboratory Tests Test 05/02/21 14:57 05/02/21 18:07 05/02/21 23:48 05/02/21 23:59 Glucose (Fingerstick) 186 mg/dL (70-99) 132 mg/dL (70-99) 17 mg/dL (70-99) 131 mg/dL (70-99) Test 05/03/21 01:20 05/03/21 02:02 05/03/21 02:22 05/03/21 03:26 Glucose (Fingerstick) 37 mg/dL (70-99) 89 mg/dL (70-99) 80 mg/dL (70-99) 51 mg/dL (70-99) Test 05/03/21 04:07 05/03/21 04:54 05/03/21 04:58 05/03/21 06:23 Glucose (Fingerstick) 74 mg/dL (70-99) 66 mg/dL (70-99) 99 mg/dL (70-99) White Blood Count 22.3 x10^3/uL (4.0-11.0) Red Blood Count 3.58 x10^6/uL (4.30-5.70) Hemoglobin 9.4 g/dL (13.0-17.5) Hematocrit 29.3 % (39.0-53.0) Mean Corpuscular Volume 82 fL (79-100) Mean Corpuscular Hemoglobin 26 pg (25-35) Mean Corpuscular Hemoglobin Concent 32 g/dL (31-37) Red Cell Distribution Width 16.0 % (11.5-14.5) Platelet Count 382 x10^3/uL (140-400) Neutrophils (%) (Auto) 77 % (31-73) Lymphocytes (%) (Auto) 11 % (24-48) Monocytes (%) (Auto) 11 % (0-9) Eosinophils (%) (Auto) 1 % (0-3) Basophils (%) (Auto) 0 % (0-3) Neutrophils # (Auto) 17.1 x10^3/uL (1.8-7.7) Lymphocytes # (Auto) 2.5 x10^3/uL (1.0-4.8) Monocytes # (Auto) 2.5 x10^3/uL (0.0-1.1) Eosinophils # (Auto) 0.2 x10^3/uL (0.0-0.7) Basophils # (Auto) 0.0 x10^3/uL (0.0-0.2) Sodium Level 137 mmol/L (136-145) Potassium Level 3.8 mmol/L (3.5-5.1) Chloride Level 102 mmol/L (98-107) Carbon Dioxide Level 30 mmol/L (21-32) Anion Gap 5 (6-14) Blood Urea Nitrogen 47 mg/dL (8-26) Creatinine 2.5 mg/dL (0.7-1.3) Estimated GFR (Cockcroft-Gault) 30.7 BUN/Creatinine Ratio 19 (6-20) Glucose Level 82 mg/dL (70-99) Calcium Level 8.2 mg/dL (8.5-10.1) Phosphorus Level 3.4 mg/dL (2.6-4.7) Magnesium Level 2.4 mg/dL (1.8-2.4) Total Bilirubin 0.4 mg/dL (0.2-1.0) Aspartate Amino Transf (AST/SGOT) 35 U/L (15-37) Alanine Aminotransferase (ALT/SGPT) 26 U/L (16-63) Alkaline Phosphatase 58 U/L (46-116) Total Protein 5.9 g/dL (6.4-8.2) Albumin 1.7 g/dL (3.4-5.0) Albumin/Globulin Ratio 0.4 (1.0-1.7) Test 05/03/21 08:22 O2 Saturation 85 % (92-99) Arterial Blood pH 7.45 (7.35-7.45) Arterial Blood pCO2 at Patient Temp 34 mmHg (35-46) Arterial Blood pO2 at Patient Temp 49 mmHg (65-108) Arterial Blood HCO3 23 mmol/L (21-28) Arterial Blood Base Excess -1 mmol/L (-3-3) Oxyhemoglobin 84.8 % Methemoglobin 0.3 % (0.0-1.9) Carbon Monoxide, Quantitative 0.2 % (0.0-1.9) FiO2 50% vent Micro Micro Microbiology 04/24/21 Blood Culture - Final, Complete NO GROWTH AFTER 5 DAYS Review of Systems Constitutional: yes: unresponsive, other (UNABLE TO OBTAIN) Physical Exam General Appearance: other (ON THE VENT) Respiratory: decreased breath sounds Heart: S1S2 Abdomen: bowel sounds present Genitourinary: bladder flat Extremities: atrophy Neurology: other (sedated) Musculoskeletal: Other Assessment Assessment IMP [id number] IMPROVING CKD - SUSPECT STAGE 3 ACUTE HYPOXIC RESP FAILURE-FIO2 INCREASED COVID 19 PNEUMONIA MET ACIDOSIS-BETTER LEUCOCYTOSIS HYPOKALEMIA ANEMIA PLAN REPLACE K REMAINS CRITICALLY ILL VENT SUPPORT NUTRITION-NEPRO TF HOLD BETTY DUE TO HYPERCOAGULABLE STATE PRESSORS NEEDED STEROIDS/REMDESIVIR HD TOMORROW TENTATIVELY CONT TO MONITOR FOR RENAL RECOVERY CONT IV LASIX D/W DR AVILA WILL FOLLOW JEANINE NEWTON MD May 03, 2021 10:09
[2021-05-03 11:25] LABS: BASE EXCESS ABG 5 mmol/L (-3-3); HCO3 ABG 30 mmol/L (21-28); PCO2 ABG 48 mmHg (35-46); PO2 ABG 82 mmHg (65-108); SAT O2 ABG 96 % (92-99)
[2021-05-03 11:26] LABS: FIO2 ABG 70
--- NOTE | 2021-05-03 11:43 | PDOC ---
CARDIO Progress Notes Date and Time Date of Service 05/03/21 Time of Evaluation 1140 Subjective Subjective: Other (intubated ) Vitals Vitals Vital Signs Date Time Temp Pulse Resp B/P (MAP) Pulse Ox O2 Delivery O2 Flow Rate FiO2 05/03/21 11:02 100 Ventilator 05/03/21 11:00 100.4 80 20 113/53 (73) 100.4 Weight Weight [ ] Input and Output Intake and Output Intake and Output 05/03/21 07:00 Intake Total 2236 ml Output Total 1685 ml Balance 551 ml IV Total 183 ml Tube Feeding 1452 ml Other 601 ml Output Urine Total 1685 ml # Bowel Movements 2 Laboratory Labs Laboratory Tests Test 05/02/21 14:57 05/02/21 18:07 05/02/21 23:48 05/02/21 23:59 Glucose (Fingerstick) 186 mg/dL (70-99) 132 mg/dL (70-99) 17 mg/dL (70-99) 131 mg/dL (70-99) Test 05/03/21 01:20 05/03/21 02:02 05/03/21 02:22 05/03/21 03:26 Glucose (Fingerstick) 37 mg/dL (70-99) 89 mg/dL (70-99) 80 mg/dL (70-99) 51 mg/dL (70-99) Test 05/03/21 04:07 05/03/21 04:54 05/03/21 04:58 05/03/21 06:23 Glucose (Fingerstick) 74 mg/dL (70-99) 66 mg/dL (70-99) 99 mg/dL (70-99) White Blood Count 22.3 x10^3/uL (4.0-11.0) Red Blood Count 3.58 x10^6/uL (4.30-5.70) Hemoglobin 9.4 g/dL (13.0-17.5) Hematocrit 29.3 % (39.0-53.0) Mean Corpuscular Volume 82 fL (79-100) Mean Corpuscular Hemoglobin 26 pg (25-35) Mean Corpuscular Hemoglobin Concent 32 g/dL (31-37) Red Cell Distribution Width 16.0 % (11.5-14.5) Platelet Count 382 x10^3/uL (140-400) Neutrophils (%) (Auto) 77 % (31-73) Lymphocytes (%) (Auto) 11 % (24-48) Monocytes (%) (Auto) 11 % (0-9) Eosinophils (%) (Auto) 1 % (0-3) Basophils (%) (Auto) 0 % (0-3) Neutrophils # (Auto) 17.1 x10^3/uL (1.8-7.7) Lymphocytes # (Auto) 2.5 x10^3/uL (1.0-4.8) Monocytes # (Auto) 2.5 x10^3/uL (0.0-1.1) Eosinophils # (Auto) 0.2 x10^3/uL (0.0-0.7) Basophils # (Auto) 0.0 x10^3/uL (0.0-0.2) Sodium Level 137 mmol/L (136-145) Potassium Level 3.8 mmol/L (3.5-5.1) Chloride Level 102 mmol/L (98-107) Carbon Dioxide Level 30 mmol/L (21-32) Anion Gap 5 (6-14) Blood Urea Nitrogen 47 mg/dL (8-26) Creatinine 2.5 mg/dL (0.7-1.3) Estimated GFR (Cockcroft-Gault) 30.7 BUN/Creatinine Ratio 19 (6-20) Glucose Level 82 mg/dL (70-99) Calcium Level 8.2 mg/dL (8.5-10.1) Phosphorus Level 3.4 mg/dL (2.6-4.7) Magnesium Level 2.4 mg/dL (1.8-2.4) Total Bilirubin 0.4 mg/dL (0.2-1.0) Aspartate Amino Transf (AST/SGOT) 35 U/L (15-37) Alanine Aminotransferase (ALT/SGPT) 26 U/L (16-63) Alkaline Phosphatase 58 U/L (46-116) Total Protein 5.9 g/dL (6.4-8.2) Albumin 1.7 g/dL (3.4-5.0) Albumin/Globulin Ratio 0.4 (1.0-1.7) Test 05/03/21 08:22 05/03/21 10:06 05/03/21 11:24 O2 Saturation 85 % (92-99) 96 % (92-99) Arterial Blood pH 7.45 (7.35-7.45) 7.42 (7.35-7.45) Arterial Blood pCO2 at Patient Temp 34 mmHg (35-46) 48 mmHg (35-46) Arterial Blood pO2 at Patient Temp 49 mmHg (65-108) 82 mmHg (65-108) Arterial Blood HCO3 23 mmol/L (21-28) 30 mmol/L (21-28) Arterial Blood Base Excess -1 mmol/L (-3-3) 5 mmol/L (-3-3) Oxyhemoglobin 84.8 % Methemoglobin 0.3 % (0.0-1.9) Carbon Monoxide, Quantitative 0.2 % (0.0-1.9) FiO2 50% vent 70 Glucose (Fingerstick) 149 mg/dL (70-99) Microbiology Micro Microbiology 04/24/21 Blood Culture - Final, Complete NO GROWTH AFTER 5 DAYS Review of Systems Constitutional: yes: unresponsive, other (UNABLE TO OBTAIN) Physical Exam HEENT: Neck Supple W Full Motion Chest: Symmetric LUNGS: Other (MV) Heart: RRR (SR with PAC's, PVCs) Abdomen: Other (soft) Extremities: Other (1+ bilateral LE edema ) Neurology: other (sedated) Assessment Assessment 1. Acute respiratory failure secondary to CHF, s/p intubation. COVID + 2. Acute on chronic diastolic CHF 3. Hypertensive urgency; better controlled 4. NSTEMI; trop highest 2.8. Echo last week with preserved LV systolic function with moderate LVH. Most probable type II, demand ischemia in setting of above, although underling ischemic cannot be ruled out 5. ? CAD; details unknown 6. Hyperlipidemia; statin 7. 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 Diabetes, II 9. Leukocytosis; fevers 10. H/o bilateral subclavian stenosis s/p left subclavian sent placement complicated by retroperitoneal hematoma s/p evacuation in 08/2015. 11. New AFIB with RVR: currently SR. Recommendations ASA, statin Metoprolol for rate control Amiodarone for rhyhtm maintenance SQ heparin Hydralazine, Labetalol IV PRN Fluid offloading via HD On Lasix Ongoing lung optimization, treatment of COVID PNA as per pulm Supportive care Justicifation of Admission Dx: Justifications for Admission: Justification of Admission Dx: Yes Aspiration Pneumonia: Hemodynamic Instability CAMRYN DRAPER APRN May 03, 2021 11:43
--- NOTE | 2021-05-03 12:23 | PDOC ---
[facility] PROGRESS NOTE Date of Service DOS: DATE: 05/03/21 TIME: 12:22 Chief Complaint Chief Complaint Respiratory failure requiring intubation [place] [address] Acute TX A. fib SIRS Hypertension with hypertensive urgency Hyperlipidemia CKD Diabetes History of bilateral subclavian stenosis History of marijuana use Severe protein calorie malnutrition History of Present Illness History of Present Illness 05/03/2021 Patient seen and examined in the [place] [address] ICU He is still intubated AC/20/500/70 percent with 5 of PEEP Has SCDs in place Nieves to bedside drainage Sedated with fentanyl Versed and propofol Discussed are Chart reviewed Remains critically ill 05/02/2021 Patient seen and examined in the [place] [address] ICU He is sedated with propofol fentanyl and Versed Ventilator settings as follow AC/20/500/40 percent with 5 of PEEP Has Nieves to bedside drainage Chart reviewed Discussed with RN He remains critically ill 05/01/2021 Patient seen and examined in the [place] [address] ICU He is still intubated AC/20/500/40 percent with 5 of PEEP In A. fib Sedated with propofol fentanyl and Versed Has a heparin drip Missy with RN Chart reviewed He remains critically 04/30/2020 Patient seen and examined in the [place] [address] ICU He remains on the vent AC/20/500/40 5% with 5 PEEP Currently on dialysis Has OG feeds running Has a Nieves to bedside drainage Sedated with propofol and fentanyl Reviewed chart Discussed with RN He remains critically ill Mr Cunha is a 75 yo male w/ PMHx CAD, HTN, Hyperlipidemia, subclavian steel syndrome, subclavian stenosis s/p left subclavian sent placement complicated by retroperitoneal hematoma s/p evacuation in 08/2015), asthma, BART, CKD, DM2 who presented from home with home health care noted that he was short of breath and valverde with O2 saturations less than 89% as low as 84% not improved with nasal cannulated oxygen placed on CPAP and brought to ED for further care. He was just discharged from the hospital a week ago on April 19, 2021 for abdominal pain and was going for further cardiac testing with outpatient stress testing scheduled on May 28, 2021. Had echocardiogram April 17, 2021 with normal-appearing EF with moderate concentric LVH no significant valvular abnormalities. WBC 20, Hb 10.7, platelets 268, NA 140, K3.8, BUN 21, CR 2.9, glucose 162, albumin 3, troponin I 1.372, NT proBNP 33,318. EKG appears sinus tachycardia rate of 105 bpm with multiple PACs small ST depressions in lead II and V5. TWI in V6. Chest radiograph with diffuse interstitial and alveolar opacities and ET tube 5.8 cm above the leilani. Due to worsening respiratory status ED physician elected to intubate patient. Seen postintubation. Blood pressure little low after propofol bolus, but improved. Significant white frothy sputum per ET tube. Admitted to ICU for further care 04/29/2021: Afebrile, remains on vent at FiO2 45%, PEEP 5. WBC 20.4. Hemodialysis per nephrology. We will continue treatment with empiric antibiotics, remdesivir, and steroids. Continue heparin infusion and supportive care. Critical care time 30 minutes reviewing chart, review labs, review imaging, discussion with RN. 04/28/2021: Afebrile. FiO2 50%, PEEP 5. Nontunneled HD catheter placed yesterday due to worsening kidney function; eGFR 16 (CKD4). Chest x-ray showed unchanged interstitial opacities. Continue empiric antibiotics, steroids, and remdesivir. Continue heparin infusion, and continue to follow cardiology recommendations on new diagnosis of A. fib. Critical care time 30 minutes reviewing chart, review labs, review imaging, discussion with RN. 04/27/2021: Afebrile. On vent with FiO2 50%, PEEP 5. Troponin 2.8 yesterday; probable type II, demand ischemia. New onset A. fib. Continue heparin drip and as needed digoxin, per cardiology. Continue treatment with remdesivir, steroids, and prophylactic antibiotics. CBG 323 this morning; will add basal insulin. Critical care 30 minutes spent reviewing labs, reviewing imaging, reviewing charts, and discussion with RN. 04/26/2021: COVID-19 positive. Febrile overnight that was managed with cooling blankets. On vent with FiO2 50%, PEEP 5. Per cardiology, elevated troponins likely secondary to demand ischemia; continue heparin drip per cardiology. Maintain fluid balance and avoid nephrotoxins. Continue treatment with remdesivir, steroids, and prophylactic antibiotics. 30 minutes critical care time spent reviewing charts, reviewing labs, reviewing imaging, and discussion with RN. 04/25/2021: On vent FiO2 50, PEEP 5. Febrile, T-max 103.3. Patient was initiated on cooling blankets. Procalcitonin 0.13. Continue coverage for hospital-acquired pneumonia with cefepime. MRSA PCR pending. Critical care time 30 minutes spent reviewing charts, reviewing labs, review of imaging, discussion with RN. Vitals/I&O Vitals/I&O: Vital Signs Date Time Temp Pulse Resp B/P (MAP) Pulse Ox O2 Delivery O2 Flow Rate FiO2 05/03/21 11:02 100 Ventilator 05/03/21 11:00 100.4 80 20 113/53 (73) 100.4 I & O 05/02/21 05/02/21 05/03/21 15:00 23:00 07:00 Intake Total 200 ml 750 ml 1286 ml Output Total 920 ml 655 ml 110 ml Balance -720 ml 95 ml 1176 ml Physical Exam General: Other (Intubated sedated) Heart: Other (Tachycardic) Abdomen: Soft, Other (obese) Extremities: Other (trace LE edema ) Skin: No rashes, No breakdown, No significant lesion Labs Labs: Laboratory Tests Test 05/02/21 14:57 05/02/21 18:07 05/02/21 23:48 05/02/21 23:59 Glucose (Fingerstick) 186 mg/dL (70-99) 132 mg/dL (70-99) 17 mg/dL (70-99) 131 mg/dL (70-99) Test 05/03/21 01:20 05/03/21 02:02 05/03/21 02:22 05/03/21 03:26 Glucose (Fingerstick) 37 mg/dL (70-99) 89 mg/dL (70-99) 80 mg/dL (70-99) 51 mg/dL (70-99) Test 05/03/21 04:07 05/03/21 04:54 05/03/21 04:58 05/03/21 06:23 Glucose (Fingerstick) 74 mg/dL (70-99) 66 mg/dL (70-99) 99 mg/dL (70-99) White Blood Count 22.3 x10^3/uL (4.0-11.0) Red Blood Count 3.58 x10^6/uL (4.30-5.70) Hemoglobin 9.4 g/dL (13.0-17.5) Hematocrit 29.3 % (39.0-53.0) Mean Corpuscular Volume 82 fL (79-100) Mean Corpuscular Hemoglobin 26 pg (25-35) Mean Corpuscular Hemoglobin Concent 32 g/dL (31-37) Red Cell Distribution Width 16.0 % (11.5-14.5) Platelet Count 382 x10^3/uL (140-400) Neutrophils (%) (Auto) 77 % (31-73) Lymphocytes (%) (Auto) 11 % (24-48) Monocytes (%) (Auto) 11 % (0-9) Eosinophils (%) (Auto) 1 % (0-3) Basophils (%) (Auto) 0 % (0-3) Neutrophils # (Auto) 17.1 x10^3/uL (1.8-7.7) Lymphocytes # (Auto) 2.5 x10^3/uL (1.0-4.8) Monocytes # (Auto) 2.5 x10^3/uL (0.0-1.1) Eosinophils # (Auto) 0.2 x10^3/uL (0.0-0.7) Basophils # (Auto) 0.0 x10^3/uL (0.0-0.2) Sodium Level 137 mmol/L (136-145) Potassium Level 3.8 mmol/L (3.5-5.1) Chloride Level 102 mmol/L (98-107) Carbon Dioxide Level 30 mmol/L (21-32) Anion Gap 5 (6-14) Blood Urea Nitrogen 47 mg/dL (8-26) Creatinine 2.5 mg/dL (0.7-1.3) Estimated GFR (Cockcroft-Gault) 30.7 BUN/Creatinine Ratio 19 (6-20) Glucose Level 82 mg/dL (70-99) Calcium Level 8.2 mg/dL (8.5-10.1) Phosphorus Level 3.4 mg/dL (2.6-4.7) Magnesium Level 2.4 mg/dL (1.8-2.4) Total Bilirubin 0.4 mg/dL (0.2-1.0) Aspartate Amino Transf (AST/SGOT) 35 U/L (15-37) Alanine Aminotransferase (ALT/SGPT) 26 U/L (16-63) Alkaline Phosphatase 58 U/L (46-116) Total Protein 5.9 g/dL (6.4-8.2) Albumin 1.7 g/dL (3.4-5.0) Albumin/Globulin Ratio 0.4 (1.0-1.7) Test 05/03/21 08:22 05/03/21 10:06 05/03/21 11:24 O2 Saturation 85 % (92-99) 96 % (92-99) Arterial Blood pH 7.45 (7.35-7.45) 7.42 (7.35-7.45) Arterial Blood pCO2 at Patient Temp 34 mmHg (35-46) 48 mmHg (35-46) Arterial Blood pO2 at Patient Temp 49 mmHg (65-108) 82 mmHg (65-108) Arterial Blood HCO3 23 mmol/L (21-28) 30 mmol/L (21-28) Arterial Blood Base Excess -1 mmol/L (-3-3) 5 mmol/L (-3-3) Oxyhemoglobin 84.8 % Methemoglobin 0.3 % (0.0-1.9) Carbon Monoxide, Quantitative 0.2 % (0.0-1.9) FiO2 50% vent 70 Glucose (Fingerstick) 149 mg/dL (70-99) Assessment and Plan Assessmemt and Plan Problems Medical Problems: (1) Elevated troponin Status: Acute (2) Person under investigation for COVID-19 Status: Acute (3) Pulmonary edema Status: Acute Respiratory failure requiring intubation COVID-19 Acute TX A. fib SIRS Hypertension with hypertensive urgency Hyperlipidemia CKD Diabetes History of bilateral subclavian stenosis History of marijuana use Severe protein calorie malnutrition Plan ICU monitoring Covid protocol Trend ABG and chest x-ray Heparin drip Respiratory isolation Continue Nieves Vent weaning Home meds Trend labs DVT prophylaxis Full code Appreciate subspecialist input Prognosis guarded CC time 32-minute Comment Review of Relevant I have reviewed the following items juanita (where applicable) has been applied. Medications: Current Medications Medications (Trade) Dose Ordered Sig/Jodie Route PRN Reason Start Time Stop Time Status Last Admin Dose Admin Furosemide (Lasix) 40 mg Q8HRS IVP 05/02/21 14:00 05/03/21 06:19 Norepinephrine Bitartrate 8 mg/ Dextrose 258 ml @ 25.852 mls/ hr CONT PRN IV PER PROTOCOL 05/02/21 21:00 05/02/21 21:22 Dextrose 1,000 ml @ 50 mls/hr Q20H IV 05/03/21 05:15 05/03/21 05:15 Aspirin (Aspirin Chewable) 81 mg DAILYWBKFT PO 05/03/21 10:00 05/03/21 10:02 Justifications for Admission General Conditions Altered mental status?: Yes Justification of admission: Patient has tachycardia (> 100 beats per minute) or hypotension (SBP < 90 mm Hg) leading to inadequate systemic perfusion as indicated by severe/persistent altered mental status. Other Justification ELENI RENTERIA III DO May 03, 2021 12:23
[2021-05-03] MEDS ORDERED: DEXTROSE 50% 25 GM / 50ML DISP.SYRIN. IV PRN (14:00)
--- NOTE | 2021-05-03 15:21 | NUR ---
SS following up with discharge planning. SS reviewed pt chart and discussed with pt RN. Pt is currently on the vent at 70%. COVID19 positive. Pt on IV Lasix and IV Decadron. Pt on Propofol, Versed, and Fentanyl. Hemodialysis tomorrow. Not stable. SS will continue to follow for discharge planning.
--- NOTE | 2021-05-03 16:50 | NUR ---
Wound Care Wound Type/Assessment: Pt seen for wound care follow up for a large, intact blood blister on pt's R plantar foot. Reddish purple, blood filled blister, appears stable, periwound intact and clear. Treatment Recommendations/Plan: Skin prep to periwound, foam dressing for protection, change every 3-4 days. Education provided: to RN Offloading surface/device: wedge, ICU bed, float feet with pillows, end bedrail removed, as it's difficult for pt's feet to avoid touching d/t height. Recommended Referrals/Tests: n/a Discharge Recommendations for dressings: see treatment plan above, will continue to follow
[2021-05-03] MEDS: ATORVASTATIN CALCIUM 40 MG TABLET. PO SCH (21:54)
[2021-05-03] MEDS: MONTELUKAST SODIUM 10 MG TABLET. PO SCH (21:55)
[2021-05-03] MEDS: INSULIN GLARGINE SYRINGE. SQ SCH (21:57)
[2021-05-04] VITALS (25 sets, daily range): BP systolic 96–163; BP diastolic 43–81
[2021-05-04] MEDS: INSULIN LISPRO 300 UNITS/3 ML VIAL. SQ SCH ×4 (01:03→17:45)
[2021-05-04] MEDS: PROPOFOL 100 ML IV PRN ×7 (02:54→20:41)
[2021-05-04 05:37] LABS: ALBUMIN 1.4 g/dL (3.4-5.0); CALCIUM 8.1 mg/dL (8.5-10.1); CREATININE 3.3 mg/dL (0.7-1.3); GFR 22.3; PHOSPHORUS 5.2 mg/dL (2.6-4.7); POTASSIUM 3.8 mmol/L (3.5-5.1)
[2021-05-04] MEDS: METOPROLOL IV PUSH 5 MG/5 ML VIAL. IVP SCH ×5 (05:53→17:48)
--- NOTE | 2021-05-04 06:11 | RAD ---
EXAMINATION: Chest radiograph. VIEWS: Single view COMPARISON: 04/30/2021 INDICATION:75 years, Male, respiratory failure. FINDINGS: Endotracheal tube tip locates approximately 5.5 cm proximal to the leilani. Right IJ central venous ca theters are unchanged. Enteric tube tip is off image, presumably in the stomach. Stable cardiomediast inal silhouette. Unchanged bibasilar patchy airspace opacities. Stable small left pleural effusion. N o pneumothorax. No acute osseous process. IMPRESSION: No significant changes since earlier exam. Electronically signed by: Krzysztof Mayer MD (05/04/2021 6:09 AM) [facility]
[2021-05-04] MEDS: PANTOPRAZOLE IV PUSH 40 MG VIAL. IVP SCH (06:33)
[2021-05-04] MEDS: FUROSEMIDE 40 MG/4 ML VIAL. IVP SCH ×3 (06:33→21:44)
[2021-05-04] MEDS: HEPARIN for SUB-Q USE 5,000 UNIT/ML VIAL. SQ SCH ×3 (06:35→21:47)
[2021-05-04] MEDS ORDERED: IV NORMAL SALINE 1000ML BAG 1,000 ML IV PRN ×2 (07:30)
[2021-05-04] MEDS ORDERED: 0.9 % SODIUM CHLORIDE 10 ML DISP.SYRIN. IV PRN ×2 (07:30)
[2021-05-04] MEDS ORDERED: DIALYSIS PATIENT. MC PRN ×2 (07:30)
[2021-05-04] MEDS ORDERED: ALBUMIN HUMAN 25% 200 ML IV PRN (07:30)
[2021-05-04 08:21] LABS: BASE EXCESS ABG 0 mmol/L (-3-3); HCO3 ABG 25 mmol/L (21-28); PCO2 ABG 41 mmHg (35-46); PO2 ABG 97 mmHg (65-108); SAT O2 ABG 97 % (92-99)
--- NOTE | 2021-05-04 08:39 | PDOC ---
PULMONARY PROGRESS NOTES DATE: 05/04/21 TIME: 08:39 Subjective Discussed with RN, patient does not do well off sedation, Currently on rate of 20, 500 tidal volume, 70% FiO2, 5 of PEEP Initiate propofol Vitals Vital Signs Date Time Temp Pulse Resp B/P (MAP) Pulse Ox O2 Delivery O2 Flow Rate FiO2 05/04/21 08:10 100 Ventilator 05/04/21 07:20 22 05/04/21 06:00 98.8 66 113/55 (74) 98.8 Comments Visual exam done due to COVID-19. Intubated and sedated No paradoxical breathing. Labs Laboratory Tests Test 05/02/21 14:57 05/02/21 18:07 05/02/21 23:48 05/02/21 23:59 Glucose (Fingerstick) 186 mg/dL (70-99) 132 mg/dL (70-99) 17 mg/dL (70-99) 131 mg/dL (70-99) Test 05/03/21 01:20 05/03/21 02:02 05/03/21 02:22 05/03/21 03:26 Glucose (Fingerstick) 37 mg/dL (70-99) 89 mg/dL (70-99) 80 mg/dL (70-99) 51 mg/dL (70-99) Test 05/03/21 04:07 05/03/21 04:54 05/03/21 04:58 05/03/21 06:23 Glucose (Fingerstick) 74 mg/dL (70-99) 66 mg/dL (70-99) 99 mg/dL (70-99) White Blood Count 22.3 x10^3/uL (4.0-11.0) Red Blood Count 3.58 x10^6/uL (4.30-5.70) Hemoglobin 9.4 g/dL (13.0-17.5) Hematocrit 29.3 % (39.0-53.0) Mean Corpuscular Volume 82 fL (79-100) Mean Corpuscular Hemoglobin 26 pg (25-35) Mean Corpuscular Hemoglobin Concent 32 g/dL (31-37) Red Cell Distribution Width 16.0 % (11.5-14.5) Platelet Count 382 x10^3/uL (140-400) Neutrophils (%) (Auto) 77 % (31-73) Lymphocytes (%) (Auto) 11 % (24-48) Monocytes (%) (Auto) 11 % (0-9) Eosinophils (%) (Auto) 1 % (0-3) Basophils (%) (Auto) 0 % (0-3) Neutrophils # (Auto) 17.1 x10^3/uL (1.8-7.7) Lymphocytes # (Auto) 2.5 x10^3/uL (1.0-4.8) Monocytes # (Auto) 2.5 x10^3/uL (0.0-1.1) Eosinophils # (Auto) 0.2 x10^3/uL (0.0-0.7) Basophils # (Auto) 0.0 x10^3/uL (0.0-0.2) Sodium Level 137 mmol/L (136-145) Potassium Level 3.8 mmol/L (3.5-5.1) Chloride Level 102 mmol/L (98-107) Carbon Dioxide Level 30 mmol/L (21-32) Anion Gap 5 (6-14) Blood Urea Nitrogen 47 mg/dL (8-26) Creatinine 2.5 mg/dL (0.7-1.3) Estimated GFR (Cockcroft-Gault) 30.7 BUN/Creatinine Ratio 19 (6-20) Glucose Level 82 mg/dL (70-99) Calcium Level 8.2 mg/dL (8.5-10.1) Phosphorus Level 3.4 mg/dL (2.6-4.7) Magnesium Level 2.4 mg/dL (1.8-2.4) Total Bilirubin 0.4 mg/dL (0.2-1.0) Aspartate Amino Transf (AST/SGOT) 35 U/L (15-37) Alanine Aminotransferase (ALT/SGPT) 26 U/L (16-63) Alkaline Phosphatase 58 U/L (46-116) Total Protein 5.9 g/dL (6.4-8.2) Albumin 1.7 g/dL (3.4-5.0) Albumin/Globulin Ratio 0.4 (1.0-1.7) Test 05/03/21 08:22 05/03/21 10:06 05/03/21 11:24 05/03/21 12:21 O2 Saturation 85 % (92-99) 96 % (92-99) Arterial Blood pH 7.45 (7.35-7.45) 7.42 (7.35-7.45) Arterial Blood pCO2 at Patient Temp 34 mmHg (35-46) 48 mmHg (35-46) Arterial Blood pO2 at Patient Temp 49 mmHg (65-108) 82 mmHg (65-108) Arterial Blood HCO3 23 mmol/L (21-28) 30 mmol/L (21-28) Arterial Blood Base Excess -1 mmol/L (-3-3) 5 mmol/L (-3-3) Oxyhemoglobin 84.8 % Methemoglobin 0.3 % (0.0-1.9) Carbon Monoxide, Quantitative 0.2 % (0.0-1.9) FiO2 50% vent 70 Glucose (Fingerstick) 149 mg/dL (70-99) 198 mg/dL (70-99) Test 05/03/21 18:33 05/04/21 00:58 05/04/21 05:05 05/04/21 08:17 Glucose (Fingerstick) 262 mg/dL (70-99) 259 mg/dL (70-99) Sodium Level 132 mmol/L (136-145) Potassium Level 3.8 mmol/L (3.5-5.1) Chloride Level 98 mmol/L (98-107) Carbon Dioxide Level 29 mmol/L (21-32) Anion Gap 5 (6-14) Blood Urea Nitrogen 63 mg/dL (8-26) Creatinine 3.3 mg/dL (0.7-1.3) Estimated GFR (Cockcroft-Gault) 22.3 Glucose Level 254 mg/dL (70-99) Calcium Level 8.1 mg/dL (8.5-10.1) Phosphorus Level 5.2 mg/dL (2.6-4.7) Albumin 1.4 g/dL (3.4-5.0) O2 Saturation 97 % (92-99) Arterial Blood pH 7.40 (7.35-7.45) Arterial Blood pCO2 at Patient Temp 41 mmHg (35-46) Arterial Blood pO2 at Patient Temp 97 mmHg (65-108) Arterial Blood HCO3 25 mmol/L (21-28) Arterial Blood Base Excess 0 mmol/L (-3-3) FiO2 70% vent Laboratory Tests Test 05/03/21 10:06 05/03/21 11:24 05/03/21 12:21 05/03/21 18:33 Glucose (Fingerstick) 149 mg/dL (70-99) 198 mg/dL (70-99) 262 mg/dL (70-99) O2 Saturation 96 % (92-99) Arterial Blood pH 7.42 (7.35-7.45) Arterial Blood pCO2 at Patient Temp 48 mmHg (35-46) Arterial Blood pO2 at Patient Temp 82 mmHg (65-108) Arterial Blood HCO3 30 mmol/L (21-28) Arterial Blood Base Excess 5 mmol/L (-3-3) FiO2 70 Test 05/04/21 00:58 05/04/21 05:05 05/04/21 08:17 Glucose (Fingerstick) 259 mg/dL (70-99) Sodium Level 132 mmol/L (136-145) Potassium Level 3.8 mmol/L (3.5-5.1) Chloride Level 98 mmol/L (98-107) Carbon Dioxide Level 29 mmol/L (21-32) Anion Gap 5 (6-14) Blood Urea Nitrogen 63 mg/dL (8-26) Creatinine 3.3 mg/dL (0.7-1.3) Estimated GFR (Cockcroft-Gault) 22.3 Glucose Level 254 mg/dL (70-99) Calcium Level 8.1 mg/dL (8.5-10.1) Phosphorus Level 5.2 mg/dL (2.6-4.7) Albumin 1.4 g/dL (3.4-5.0) O2 Saturation 97 % (92-99) Arterial Blood pH 7.40 (7.35-7.45) Arterial Blood pCO2 at Patient Temp 41 mmHg (35-46) Arterial Blood pO2 at Patient Temp 97 mmHg (65-108) Arterial Blood HCO3 25 mmol/L (21-28) Arterial Blood Base Excess 0 mmol/L (-3-3) FiO2 70% vent Medications Active Scripts Medications Dose Route/Sig Max Daily Dose Days Date Category Glyburide 2.5 Mg Tablet 1 Tab PO DAILY 04/19/21 Rx Polyethylene Glycol 3350 17 Gm Powd.pack 17 Gm PO DAILY 04/19/21 Rx Dok (Docusate Sodium) 100 Mg Capsule 100 Mg PO PRN DAILY PRN 30 04/19/21 Rx Bisacodyl 5 Mg Tablet.dr 5 Mg PO PRN DAILY PRN 14 04/19/21 Rx Acetaminophen 325 Mg Tablet 650 Mg PO PRN Q4HRS PRN 14 04/19/21 Rx Aspirin Ec (Aspirin) 81 Mg Tablet.dr 81 Mg PO DAILYWBKFT 30 04/19/21 Rx Hydralazine Hcl 25 Mg Tablet 25 Mg PO QID 30 04/19/21 Rx Fenofibrate 54 Mg Tablet 1 Tab PO DAILY 04/17/21 Reported Potassium Chloride (Potassium Chloride) 20 Meq Tablet.er 20 Meq PO DAILY 04/17/21 Reported Coreg (Carvedilol) 12.5 Mg Tablet 37.5 Mg PO BIDWMEALS 04/17/21 Reported Rosuvastatin Calcium 40 Mg Tablet 40 Mg PO QHS 04/17/21 Reported Gabapentin (Gabapentin) 100 Mg Capsule 200 Mg PO BID 04/17/21 Reported Montelukast Sodium Tablet (Montelukast Sodium) 10 Mg Tablet 10 Mg PO HS 04/17/21 Reported Protonix (Pantoprazole Sodium) 20 Mg Tablet.dr 2 Tab PO DAILY 04/17/21 Reported Amlodipine Besylate 5 Mg Tablet 5 Mg PO DAILY 04/17/21 Reported Furosemide 40 Mg Tablet 1 Tab PO DAILY 04/17/21 Reported Proair Hfa Inhaler (Albuterol Sulfate) 8.5 Gm Hfa.aer.ad 2 Puff IH PRN Q4-6HRS PRN 21 04/16/21 Reported Advair 100-50 Diskus (Fluticasone/Salmeterol) 1 Each Disk.w.dev 1 Puff IH BID 04/16/21 Reported Comments Chest x-ray 04/30 reviewed. Bilateral improving infiltrates as well as improving pleural effusion. Impression . IMPRESSION: 1. Acute hypoxic respiratory failure, multifactorial secondary to bilateral diffuse interstitial infiltrates. --COVID-[address] chest with bilateral diffuse interstitial infiltrates without any significant pleural effusion. Consistent with viral pneumonia. 3. History of recent hospitalization for abdominal pain. He was supposed to have cardiac testing and outpatient stress test. Now, he is hospitalized. Echo with normal ejection fraction and moderate left ventricular hypertrophy. 4. Non-ST segment elevation ME 5. History of tobacco use, details of length not available. 6. Chronic kidney disease. Worsening ILDA on CKD, on HD now 7. Increasing metabolic acidosis secondary to ILDA. Improved with hemodialysis. 8. Abnormal chest x-ray 9. Hypoglycemia 10. Hypotension, suspect volume deficit,/possible sepsis 11. Fever Plan . 05/04, updated ABG noted PaO2 of 97 Chest x-ray noted no significant change bilateral infiltrate So far cultures negative Antibiotics per ID Monitor blood sugars Hemodialysis per nephrology Patient not ready for spontaneous trial Updated 05/03 Overnight events noted spoke with nurse Fevers new, will consult ID Initiate empiric antibiotics, patient has been on cefepime Patient finished course of remdesivir Steroids Blood sugar has been waxing and waning ABG noted, spoke with RT increase FiO2 Blood cultures 5 days ago negative Repeat chest x-ray Updated 05/02 Discussed with RN, continue current support Empiric antibiotics, Steroids Completed course of remdesivir Hemodialysis per nephrology DVT GI prophylaxis Nutritional support ABG noted, oxygenation marginal. ADELSO AVILA MD May 04, 2021 08:39
[2021-05-04 09:44] LABS: BASO # 0.2 x10^3/uL (0.0-0.2); BASO % 1 % (0-3); EOS # 0.2 x10^3/uL (0.0-0.7); EOS % 1 % (0-3); HEMATOCRIT 26.2 % (39.0-53.0); HEMOGLOBIN 8.4 g/dL (13.0-17.5); LYMPH % 8 % (24-48); MEAN CORPUSCULAR HEMOGLOBIN 27 pg (25-35); MEAN CORPUSCULAR HGB CONC 32 g/dL (31-37); MEAN CORPUSCULAR VOLUME 83 fL (79-100); MONO # 1.4 x10^3/uL (0.0-1.1); MONO % 6 % (0-9); NEUT # 21.3 x10^3/uL (1.8-7.7); NEUT % 85 % (31-73); PLATELET COUNT 350 x10^3/uL (140-400); RED BLOOD COUNT 3.15 x10^6/uL (4.30-5.70); RED CELL DISTRIBUTION WIDTH 16.2 % (11.5-14.5); WHITE BLOOD COUNT 25.1 x10^3/uL (4.0-11.0)
--- NOTE | 2021-05-04 10:07 | PDOC ---
CARDIO Progress Notes Date and Time Date of Service 05/04/2021 Time of Evaluation 0900 Subjective Subjective: Other (intubated ) Vitals Vitals Vital Signs Date Time Temp Pulse Resp B/P (MAP) Pulse Ox O2 Delivery O2 Flow Rate FiO2 05/04/21 09:27 100 Ventilator 05/04/21 09:00 98.2 78 22 118/50 (72) 98.2 Weight Weight [ ] Input and Output Intake and Output Intake and Output 05/04/21 07:00 Intake Total 3757 ml Output Total 1200 ml Balance 2557 ml IV Total 1229 ml Tube Feeding 2057 ml Other 471 ml Output Urine Total 1200 ml Laboratory Labs Laboratory Tests Test 05/03/21 10:06 05/03/21 11:24 05/03/21 12:21 05/03/21 18:33 Glucose (Fingerstick) 149 mg/dL (70-99) 198 mg/dL (70-99) 262 mg/dL (70-99) O2 Saturation 96 % (92-99) Arterial Blood pH 7.42 (7.35-7.45) Arterial Blood pCO2 at Patient Temp 48 mmHg (35-46) Arterial Blood pO2 at Patient Temp 82 mmHg (65-108) Arterial Blood HCO3 30 mmol/L (21-28) Arterial Blood Base Excess 5 mmol/L (-3-3) FiO2 70 Test 05/04/21 00:58 05/04/21 05:05 05/04/21 08:17 Glucose (Fingerstick) 259 mg/dL (70-99) White Blood Count 25.1 x10^3/uL (4.0-11.0) Red Blood Count 3.15 x10^6/uL (4.30-5.70) Hemoglobin 8.4 g/dL (13.0-17.5) Hematocrit 26.2 % (39.0-53.0) Mean Corpuscular Volume 83 fL (79-100) Mean Corpuscular Hemoglobin 27 pg (25-35) Mean Corpuscular Hemoglobin Concent 32 g/dL (31-37) Red Cell Distribution Width 16.2 % (11.5-14.5) Platelet Count 350 x10^3/uL (140-400) Neutrophils (%) (Auto) 85 % (31-73) Lymphocytes (%) (Auto) 8 % (24-48) Monocytes (%) (Auto) 6 % (0-9) Eosinophils (%) (Auto) 1 % (0-3) Basophils (%) (Auto) 1 % (0-3) Neutrophils # (Auto) 21.3 x10^3/uL (1.8-7.7) Lymphocytes # (Auto) 2.0 x10^3/uL (1.0-4.8) Monocytes # (Auto) 1.4 x10^3/uL (0.0-1.1) Eosinophils # (Auto) 0.2 x10^3/uL (0.0-0.7) Basophils # (Auto) 0.2 x10^3/uL (0.0-0.2) Sodium Level 132 mmol/L (136-145) Potassium Level 3.8 mmol/L (3.5-5.1) Chloride Level 98 mmol/L (98-107) Carbon Dioxide Level 29 mmol/L (21-32) Anion Gap 5 (6-14) Blood Urea Nitrogen 63 mg/dL (8-26) Creatinine 3.3 mg/dL (0.7-1.3) Estimated GFR (Cockcroft-Gault) 22.3 Glucose Level 254 mg/dL (70-99) Calcium Level 8.1 mg/dL (8.5-10.1) Phosphorus Level 5.2 mg/dL (2.6-4.7) Albumin 1.4 g/dL (3.4-5.0) O2 Saturation 97 % (92-99) Arterial Blood pH 7.40 (7.35-7.45) Arterial Blood pCO2 at Patient Temp 41 mmHg (35-46) Arterial Blood pO2 at Patient Temp 97 mmHg (65-108) Arterial Blood HCO3 25 mmol/L (21-28) Arterial Blood Base Excess 0 mmol/L (-3-3) FiO2 70% vent Microbiology Micro Microbiology 04/24/21 Blood Culture - Final, Complete NO GROWTH AFTER 5 DAYS Review of Systems Constitutional: yes: unresponsive, other (UNABLE TO OBTAIN) Physical Exam HEENT: Neck Supple W Full Motion Chest: Symmetric LUNGS: Other (MV) Heart: RRR (SR with PAC's, PVCs) Abdomen: Other (soft) Extremities: Other (1+ bilateral LE edema ) Neurology: other (sedated) Assessment Assessment 1. Acute respiratory failure secondary to CHF, s/p intubation. COVID + 2. Acute on chronic diastolic CHF 3. Hypertensive urgency; controlled 4. NSTEMI; trop highest 2.8. Echo last week with preserved LV systolic function with moderate LVH. Most probable type II, demand ischemia in setting of above, although underling ischemic cannot be ruled out 5. ? CAD; details unknown 6. Hyperlipidemia; statin 7. 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 Diabetes, II 9. Leukocytosis; fevers 10. H/o bilateral subclavian stenosis s/p left subclavian sent placement complicated by retroperitoneal hematoma s/p evacuation in 08/2015. 11. New AFIB with RVR: maintaining SR with PACs 12. Protein malnutrition 13. anemia: Hgb at 8.4 Recommendations 1. ASA, statin 2. Metoprolol for rate control 3. Amiodarone for rhyhtm maintenance 4. SQ heparin 5. Hydralazine, Labetalol IV PRN 6. Fluid offloading via HD. Defer lasix to nephrology 7. Ongoing lung optimization, treatment of COVID PNA as per pulm 8. Supportive care Justicifation of Admission Dx: Justifications for Admission: Justification of Admission Dx: Yes Aspiration Pneumonia: Hemodynamic Instability [employer] May 04, 2021 10:07
[2021-05-04 10:50] LABS: MAGNESIUM 2.4 mg/dL (1.8-2.4)
--- NOTE | 2021-05-04 10:50 | PDOC ---
Renal-Progress Notes Subjective Notes Notes REMAINS SEDATED AND ON THE VENT History of Present Illness Hx of present illness HIGHER O2 NEEDS Vitals Vitals Vital Signs Date Time Temp Pulse Resp B/P (MAP) Pulse Ox O2 Delivery O2 Flow Rate FiO2 05/04/21 09:27 100 Ventilator 05/04/21 09:00 98.2 78 22 118/50 (72) 98.2 Weight Weight [ ] I.O. Intake and Output Intake and Output 05/04/21 07:00 Intake Total 3757 ml Output Total 1200 ml Balance 2557 ml IV Total 1229 ml Tube Feeding 2057 ml Other 471 ml Output Urine Total 1200 ml Labs Labs Laboratory Tests Test 05/03/21 11:24 05/03/21 12:21 05/03/21 18:33 05/04/21 00:58 O2 Saturation 96 % (92-99) Arterial Blood pH 7.42 (7.35-7.45) Arterial Blood pCO2 at Patient Temp 48 mmHg (35-46) Arterial Blood pO2 at Patient Temp 82 mmHg (65-108) Arterial Blood HCO3 30 mmol/L (21-28) Arterial Blood Base Excess 5 mmol/L (-3-3) FiO2 70 Glucose (Fingerstick) 198 mg/dL (70-99) 262 mg/dL (70-99) 259 mg/dL (70-99) Test 05/04/21 05:05 05/04/21 08:17 White Blood Count 25.1 x10^3/uL (4.0-11.0) Red Blood Count 3.15 x10^6/uL (4.30-5.70) Hemoglobin 8.4 g/dL (13.0-17.5) Hematocrit 26.2 % (39.0-53.0) Mean Corpuscular Volume 83 fL (79-100) Mean Corpuscular Hemoglobin 27 pg (25-35) Mean Corpuscular Hemoglobin Concent 32 g/dL (31-37) Red Cell Distribution Width 16.2 % (11.5-14.5) Platelet Count 350 x10^3/uL (140-400) Neutrophils (%) (Auto) 85 % (31-73) Lymphocytes (%) (Auto) 8 % (24-48) Monocytes (%) (Auto) 6 % (0-9) Eosinophils (%) (Auto) 1 % (0-3) Basophils (%) (Auto) 1 % (0-3) Neutrophils # (Auto) 21.3 x10^3/uL (1.8-7.7) Lymphocytes # (Auto) 2.0 x10^3/uL (1.0-4.8) Monocytes # (Auto) 1.4 x10^3/uL (0.0-1.1) Eosinophils # (Auto) 0.2 x10^3/uL (0.0-0.7) Basophils # (Auto) 0.2 x10^3/uL (0.0-0.2) Sodium Level 132 mmol/L (136-145) Potassium Level 3.8 mmol/L (3.5-5.1) Chloride Level 98 mmol/L (98-107) Carbon Dioxide Level 29 mmol/L (21-32) Anion Gap 5 (6-14) Blood Urea Nitrogen 63 mg/dL (8-26) Creatinine 3.3 mg/dL (0.7-1.3) Estimated GFR (Cockcroft-Gault) 22.3 Glucose Level 254 mg/dL (70-99) Calcium Level 8.1 mg/dL (8.5-10.1) Phosphorus Level 5.2 mg/dL (2.6-4.7) Albumin 1.4 g/dL (3.4-5.0) O2 Saturation 97 % (92-99) Arterial Blood pH 7.40 (7.35-7.45) Arterial Blood pCO2 at Patient Temp 41 mmHg (35-46) Arterial Blood pO2 at Patient Temp 97 mmHg (65-108) Arterial Blood HCO3 25 mmol/L (21-28) Arterial Blood Base Excess 0 mmol/L (-3-3) FiO2 70% vent Micro Micro Microbiology 04/24/21 Blood Culture - Final, Complete NO GROWTH AFTER 5 DAYS Review of Systems Constitutional: yes: unresponsive, other (UNABLE TO OBTAIN) Physical Exam General Appearance: other (ON THE VENT) Respiratory: decreased breath sounds Heart: S1S2 Abdomen: bowel sounds present Genitourinary: bladder flat Extremities: atrophy Neurology: other (sedated) Musculoskeletal: Other Assessment Assessment IMP [id number] IMPROVING BUT NO CLEARANCE CKD - SUSPECT STAGE 3 ACUTE HYPOXIC RESP FAILURE-FIO2 INCREASED COVID 19 PNEUMONIA MET ACIDOSIS-BETTER LEUCOCYTOSIS HYPOKALEMIA ANEMIA PLAN REMAINS CRITICALLY ILL VENT SUPPORT-FIO2 UP TO 40% NUTRITION-NEPRO TF HOLD BETTY DUE TO HYPERCOAGULABLE STATE PRESSORS NEEDED STEROIDS/REMDESIVIR HD TODAY UF ABOUT 3.0 LITERS CONT TO MONITOR FOR RENAL RECOVERY CONT IV LASIX D/W DR AVILA WILL FOLLOW JEANINE NEWTON MD May 04, 2021 10:50
[2021-05-04] MEDS: DEXMEDETOMIDINE 400 MCG in IV NORMAL SALINE 100ML 96 ML IV PRN (10:58)
--- NOTE | 2021-05-04 11:36 | PDOC ---
[facility] PROGRESS NOTE Date of Service DOS: DATE: 05/04/21 TIME: 11:34 Chief Complaint Chief Complaint Respiratory failure requiring intubation [place] [address] Acute SC A. fib SIRS Hypertension with hypertensive urgency Hyperlipidemia CKD Diabetes History of bilateral subclavian stenosis History of marijuana use Severe protein calorie malnutrition History of Present Illness History of Present Illness 05/04/2021 Patient seen and examined in the [place] [address] ICU Still intubated Sedated with propofol and fentanyl AC/20/500/70 percent with 5 of PEEP On dialysis currently Has SCDs in Nieves to bedside drainage Discussed with RN Chart reviewed 05/03/2021 Patient seen and examined in the [place] [address] ICU He is still intubated AC/20/500/70 percent with 5 of PEEP Has SCDs in place Nieves to bedside drainage Sedated with fentanyl Versed and propofol Discussed are Chart reviewed Remains critically ill 05/02/2021 Patient seen and examined in the [place] [address] ICU He is sedated with propofol fentanyl and Versed Ventilator settings as follow AC/20/500/40 percent with 5 of PEEP Has Nieves to bedside drainage Chart reviewed Discussed with RN He remains critically ill 05/01/2021 Patient seen and examined in the [place] [address] ICU He is still intubated AC/20/500/40 percent with 5 of PEEP In A. fib Sedated with propofol fentanyl and Versed Has a heparin drip Missy with RN Chart reviewed He remains critically 04/30/2020 Patient seen and examined in the [place] [address] ICU He remains on the vent AC/20/500/40 5% with 5 PEEP Currently on dialysis Has OG feeds running Has a Nieves to bedside drainage Sedated with propofol and fentanyl Reviewed chart Discussed with RN He remains critically ill Mr Cunha is a 75 yo male w/ PMHx CAD, HTN, Hyperlipidemia, subclavian steel syndrome, subclavian stenosis s/p left subclavian sent placement complicated by retroperitoneal hematoma s/p evacuation in 08/2015), asthma, BART, CKD, DM2 who presented from home with home health care noted that he was short of breath and valverde with O2 saturations less than 89% as low as 84% not improved with nasal cannulated oxygen placed on CPAP and brought to ED for further care. He was just discharged from the hospital a week ago on April 19, 2021 for abdominal pain and was going for further cardiac testing with outpatient stress testing scheduled on May 28, 2021. Had echocardiogram April 17, 2021 with normal-appearing EF with moderate concentric LVH no significant valvular abnormalities. WBC 20, Hb 10.7, platelets 268, NA 140, K3.8, BUN 21, CR 2.9, glucose 162, albumin 3, troponin I 1.372, NT proBNP 33,318. EKG appears sinus tachycardia rate of 105 bpm with multiple PACs small ST depressions in lead II and V5. TWI in V6. Chest radiograph with diffuse interstitial and alveolar opacities and ET tube 5.8 cm above the leilani. Due to worsening respiratory status ED physician elected to intubate patient. Seen postintubation. Blood pressure little low after propofol bolus, but improved. Significant white frothy sputum per ET tube. Admitted to ICU for further care 04/29/2021: Afebrile, remains on vent at FiO2 45%, PEEP 5. WBC 20.4. Hemodialysis per nephrology. We will continue treatment with empiric antibiotics, remdesivir, and steroids. Continue heparin infusion and supportive care. Critical care time 30 minutes reviewing chart, review labs, review imaging, discussion with RN. 04/28/2021: Afebrile. FiO2 50%, PEEP 5. Nontunneled HD catheter placed yesterday due to worsening kidney function; eGFR 16 (CKD4). Chest x-ray showed unchanged interstitial opacities. Continue empiric antibiotics, steroids, and remdesivir. Continue heparin infusion, and continue to follow cardiology recommendations on new diagnosis of A. fib. Critical care time 30 minutes reviewing chart, review labs, review imaging, discussion with RN. 04/27/2021: Afebrile. On vent with FiO2 50%, PEEP 5. Troponin 2.8 yesterday; probable type II, demand ischemia. New onset A. fib. Continue heparin drip and as needed digoxin, per cardiology. Continue treatment with remdesivir, steroids, and prophylactic antibiotics. CBG 323 this morning; will add basal insulin. Critical care 30 minutes spent reviewing labs, reviewing imaging, reviewing charts, and discussion with RN. 04/26/2021: COVID-19 positive. Febrile overnight that was managed with cooling blankets. On vent with FiO2 50%, PEEP 5. Per cardiology, elevated troponins likely secondary to demand ischemia; continue heparin drip per cardiology. Maintain fluid balance and avoid nephrotoxins. Continue treatment with remdesivir, steroids, and prophylactic antibiotics. 30 minutes critical care time spent reviewing charts, reviewing labs, reviewing imaging, and discussion with RN. 04/25/2021: On vent FiO2 50, PEEP 5. Febrile, T-max 103.3. Patient was initiated on cooling blankets. Procalcitonin 0.13. Continue coverage for hospital-acquired pneumonia with cefepime. MRSA PCR pending. Critical care time 30 minutes spent reviewing charts, reviewing labs, review of imaging, discussion with RN. Vitals/I&O Vitals/I&O: Vital Signs Date Time Temp Pulse Resp B/P (MAP) Pulse Ox O2 Delivery O2 Flow Rate FiO2 05/04/21 11:00 99.3 62 20 119/81 (94) 100 Ventilator 99.3 I & O 05/03/21 05/03/21 05/04/21 15:00 23:00 07:00 Intake Total 1130 ml 1435 ml 1192 ml Output Total 515 ml 335 ml 350 ml Balance 615 ml 1100 ml 842 ml Physical Exam General: Other (Intubated sedated) Heart: Other (Tachycardic) Abdomen: Soft, Other (obese) Extremities: Other (trace LE edema ) Skin: No rashes, No breakdown, No significant lesion Labs Labs: Laboratory Tests Test 05/03/21 12:21 05/03/21 18:33 05/04/21 00:58 05/04/21 05:05 Glucose (Fingerstick) 198 mg/dL (70-99) 262 mg/dL (70-99) 259 mg/dL (70-99) White Blood Count 25.1 x10^3/uL (4.0-11.0) Red Blood Count 3.15 x10^6/uL (4.30-5.70) Hemoglobin 8.4 g/dL (13.0-17.5) Hematocrit 26.2 % (39.0-53.0) Mean Corpuscular Volume 83 fL (79-100) Mean Corpuscular Hemoglobin 27 pg (25-35) Mean Corpuscular Hemoglobin Concent 32 g/dL (31-37) Red Cell Distribution Width 16.2 % (11.5-14.5) Platelet Count 350 x10^3/uL (140-400) Neutrophils (%) (Auto) 85 % (31-73) Lymphocytes (%) (Auto) 8 % (24-48) Monocytes (%) (Auto) 6 % (0-9) Eosinophils (%) (Auto) 1 % (0-3) Basophils (%) (Auto) 1 % (0-3) Neutrophils # (Auto) 21.3 x10^3/uL (1.8-7.7) Lymphocytes # (Auto) 2.0 x10^3/uL (1.0-4.8) Monocytes # (Auto) 1.4 x10^3/uL (0.0-1.1) Eosinophils # (Auto) 0.2 x10^3/uL (0.0-0.7) Basophils # (Auto) 0.2 x10^3/uL (0.0-0.2) Sodium Level 132 mmol/L (136-145) Potassium Level 3.8 mmol/L (3.5-5.1) Chloride Level 98 mmol/L (98-107) Carbon Dioxide Level 29 mmol/L (21-32) Anion Gap 5 (6-14) Blood Urea Nitrogen 63 mg/dL (8-26) Creatinine 3.3 mg/dL (0.7-1.3) Estimated GFR (Cockcroft-Gault) 22.3 Glucose Level 254 mg/dL (70-99) Calcium Level 8.1 mg/dL (8.5-10.1) Phosphorus Level 5.2 mg/dL (2.6-4.7) Magnesium Level 2.4 mg/dL (1.8-2.4) Albumin 1.4 g/dL (3.4-5.0) Test 05/04/21 08:17 O2 Saturation 97 % (92-99) Arterial Blood pH 7.40 (7.35-7.45) Arterial Blood pCO2 at Patient Temp 41 mmHg (35-46) Arterial Blood pO2 at Patient Temp 97 mmHg (65-108) Arterial Blood HCO3 25 mmol/L (21-28) Arterial Blood Base Excess 0 mmol/L (-3-3) FiO2 70% vent Assessment and Plan Assessmemt and Plan Problems Medical Problems: (1) Elevated troponin Status: Acute (2) Person under investigation for COVID-19 Status: Acute (3) Pulmonary edema Status: Acute Respiratory failure requiring intubation COVID-19 Acute SC A. fib SIRS Hypertension with hypertensive urgency Hyperlipidemia CKD Diabetes History of bilateral subclavian stenosis History of marijuana use Severe protein calorie malnutrition Plan ICU monitoring Covid protocol Trend ABG and chest x-ray Heparin drip HD per nephrology Respiratory isolation Continue Nieves Vent weaning Home meds Trend labs DVT prophylaxis Full code Appreciate subspecialist input Prognosis guarded CC time 31-minute Comment Review of Relevant I have reviewed the following items juanita (where applicable) has been applied. Medications: Current Medications Medications (Trade) Dose Ordered Sig/Jodie Route PRN Reason Start Time Stop Time Status Last Admin Dose Admin Insulin Glargine (Lantus Syringe) 10 unit QHS SQ 05/03/21 21:00 05/03/21 21:57 Insulin Human Lispro (HumaLOG) 0-5 UNITS Q6HRS SQ 05/03/21 18:00 05/04/21 06:34 Dexmedetomidine HCl 400 mcg/ Sodium Chloride 100 ml @ 0 mls/hr CONT PRN IV PER PROTOCOL 05/04/21 10:30 05/04/21 10:58 Justifications for Admission General Conditions Altered mental status?: Yes Justification of admission: Patient has tachycardia (> 100 beats per minute) or hypotension (SBP < 90 mm Hg) leading to inadequate systemic perfusion as indicated by severe/persistent altered mental status. Other Justification ELENI RENTERIA III DO May 04, 2021 11:36
[2021-05-04] MEDS: ASPIRIN CHEWABLE 81 MG TABLET. PO SCH (12:14)
[2021-05-04] MEDS: AMIODARONE HCL 200 MG TABLET. PO SCH (12:16)
[2021-05-04] MEDS: DEXAMETHASONE SOD PHOS 4 MG/ML VIAL IVP SCH (12:17)
[2021-05-04 14:11] LABS: BILIRUBIN,URINE NEGATIVE (NEG); CLARITY,URINE CLEAR; COLOR,URINE YELLOW; NITRITE,URINE NEGATIVE (NEG); PH,URINE 5.5 (<5.0-8.0); PROTEIN,URINE 100 mg/dL (NEG-TRACE)
[2021-05-04 14:30] LABS: AMORPHOUS SEDIMENT,UR PRESENT /HPF; GRANULAR CASTS,URINE FEW /HPF; HYALINE CASTS, URINE FEW /HPF
[2021-05-04 14:32] LABS: BACTERIA,URINE 0 /HPF (0-FEW); RBC,URINE 0 /HPF (0-2); WBC,URINE 0 /HPF (0-4)
--- NOTE | 2021-05-04 14:39 | CONS ---
DATE OF CONSULTATION: 05/04/2021 REFERRING PHYSICIAN: Lucas Silva MD REASON FOR CONSULTATION: Fever. HISTORY OF PRESENT ILLNESS: A 75-year-old male who presented to the ER on 04/24/2021, with acute respiratory distress. The patient was diagnosed with COVID-19. He is currently intubated in the ICU. He was treated with remdesivir and steroids. He was on cefepime. He also had complicated medical history with AFib, RVR, CHF, acute on chronic diastolic heart failure non-STEMI, ILDA on CKD, requiring HD and anemia. He was on cefepime, which was discontinued on 04/27/2021. Yesterday, the patient had low-grade fever, ID consultation has been requested for further evaluation and treatment. The patient has been off vasopressors for about 2 days now. No fevers this morning, temperature is 99.3. Last fever documented was 100.8 on 05/03. He has been off pressors for a couple of days . REVIEW OF SYSTEMS: Unobtainable. PAST MEDICAL HISTORY: Coronary artery disease, hypertension, hyperlipidemia, COPD, history of subclavian stenosis status post subclavian stent placement complicated by retroperitoneal hematoma status post evaluation in 08/2015, history of CKD, diabetes. PAST SURGICAL HISTORY: As above. FAMILY HISTORY: Unknown. SOCIAL HISTORY: No smoking and no alcohol. ALLERGIES: PENICILLIN, UNKNOWN REACTION AND MORPHINE. CURRENT MEDICATIONS: Steroids, status post remdesivir, and cefepime were the medications reviewed in the medication list. PHYSICAL EXAMINATION: VITAL SIGNS: Temperature 99.3, pulse 59, respiratory rate 20, blood pressure 138/65, oxygen saturation 100% on FiO2 of 70%. GENERAL: Well-developed and well-nourished male, intubated, sedated. HEENT: Normocephalic, atraumatic, and anicteric. ETT and OGT present. NECK: Right IJ present. HEART: S1, S2. LUNGS: Decreased breath sounds. ABDOMEN: Soft, obese, bowel sounds present. GENITOURINARY: Nieves in place. Fecal tube in place EXTREMITIES: Edema present. DERMATOLOGIC: Warm, dry, no generalized rash. NEUROLOGIC: Intubated. PSYCHIATRIC: Unable to obtain. LABORATORY DATA: WBC 25.1, was 22.3; hemoglobin 8.4; hematocrit 26.2; and platelets 350. Sodium 132, potassium 3.8, chloride 98, bicarb 29, BUN 63, creatinine 3.3, albumin 1.4. SARS-COVID positive. UA from admission negative proteinuria. Micro blood cultures 04/24/2021, negative. IMAGING: Chest x-ray from today shows endotracheal tube tip locates approximately 5.5 cm proximal to the leilani, right IJ central venous catheter are unchanged, enteric tube is off imaged presumably in the stomach, stable cardiomediastinal silhouette, unchanged bibasilar patchy airspace opacities, stable small left pleural effusion, no pneumothorax, and no acute osseous process. IMPRESSION: 1. Febrile illness pattern improving, could be healthcare-associated pneumonia. 2. Leukocytosis, on steroids. 3. COVID-19 pneumonia. 4. Acute hypoxic respiratory failure status post intubation. 5. Congestive heart failure, acute on chronic. 6. Acute kidney injury on chronic kidney disease on hemodialysis. 7. Diabetes mellitus 2. 8. Atrial fibrillation. 9. Anemia. 10. Protein-calorie malnutrition. RECOMMENDATIONS: 1. Obtain blood culture UA, urine culture, and sputum culture. 2. Restart cefepime and add daptomycin. 3. Change central line and send cath tip for cultures. 4. Follow up labs and cultures. 5. Continue supportive care. 6. Critically ill. Thank you for allowing me to participate in this patient's care. If you have any questions, do not hesitate to contact me. NATALI/ROBERTO/LUIS DR: Osman TID: [id number] NATHAN
[2021-05-04] MEDS ORDERED: DAPTOmycin (GENERIC) IVPB 600 MG in IV NORMAL SALINE 50ML 50 ML IV SCH (15:00)
[2021-05-04] MEDS: CEFEPIME HCL IV Push 1 GM VIAL. IVP SCH (15:24)
[2021-05-04] MEDS: hydrALAZINE 20 MG/ML VIAL. IVP PRN (17:47)
[2021-05-04] MEDS: MONTELUKAST SODIUM 10 MG TABLET. PO SCH (20:37)
[2021-05-04] MEDS: ATORVASTATIN CALCIUM 40 MG TABLET. PO SCH (20:37)
[2021-05-04] MEDS: INSULIN GLARGINE SYRINGE. SQ SCH (20:38)
[2021-05-05] VITALS (23 sets, daily range): BP systolic 104–181; BP diastolic 45–116
[2021-05-05] MEDS: METOPROLOL IV PUSH 5 MG/5 ML VIAL. IVP SCH ×4 (00:03→17:39)
[2021-05-05] MEDS: INSULIN LISPRO 300 UNITS/3 ML VIAL. SQ SCH ×4 (00:10→17:32)
[2021-05-05] MEDS: PROPOFOL 100 ML IV PRN ×7 (00:15→18:18)
[2021-05-05] MEDS: LABETALOL 20 MG/4 ML DISP.SYRIN. IVP PRN (02:07)
[2021-05-05] MEDS: HEPARIN for SUB-Q USE 5,000 UNIT/ML VIAL. SQ SCH ×3 (06:42→22:19)
[2021-05-05] MEDS: FUROSEMIDE 40 MG/4 ML VIAL. IVP SCH ×3 (06:43→22:18)
[2021-05-05] MEDS: DEXMEDETOMIDINE 400 MCG in IV NORMAL SALINE 100ML 96 ML IV PRN (06:44)
[2021-05-05 07:14] LABS: ALBUMIN 1.7 g/dL (3.4-5.0); CALCIUM 8.2 mg/dL (8.5-10.1); CREATININE 2.5 mg/dL (0.7-1.3); GFR 30.7; PHOSPHORUS 4.6 mg/dL (2.6-4.7); POTASSIUM 3.7 mmol/L (3.5-5.1)
[2021-05-05] MEDS: DEXAMETHASONE SOD PHOS 4 MG/ML VIAL IVP SCH (08:08)
[2021-05-05] MEDS: PANTOPRAZOLE IV PUSH 40 MG VIAL. IVP SCH (08:08)
[2021-05-05] MEDS: ASPIRIN CHEWABLE 81 MG TABLET. PO SCH (08:08)
[2021-05-05] MEDS: CEFEPIME HCL IV Push 1 GM VIAL. IVP SCH ×2 (08:09→16:03)
[2021-05-05] MEDS: AMIODARONE HCL 200 MG TABLET. PO SCH (08:11)
[2021-05-05 08:18] LABS: BASE EXCESS ABG 2 mmol/L (-3-3); HCO3 ABG 27 mmol/L (21-28); PCO2 ABG 39 mmHg (35-46); PO2 ABG 78 mmHg (65-108); SAT O2 ABG 95 % (92-99)
[2021-05-05 08:19] LABS: FIO2 ABG 40
--- NOTE | 2021-05-05 08:27 | PDOC ---
PULMONARY PROGRESS NOTES DATE: 05/05/21 TIME: 08:23 Subjective No overnight events, patient did not do well yesterday off sedation Discussed with RT Currently on 40%, 5 of PEEP Vitals Vital Signs Date Time Temp Pulse Resp B/P (MAP) Pulse Ox O2 Delivery O2 Flow Rate FiO2 05/05/21 08:11 57 129/54 05/05/21 08:01 20 100 Ventilator 05/05/21 07:12 97.5 97.5 Comments Visual exam done due to COVID-19. Intubated and sedated No paradoxical breathing. Labs Laboratory Tests Test 05/03/21 10:06 05/03/21 11:24 05/03/21 12:21 05/03/21 18:33 Glucose (Fingerstick) 149 mg/dL (70-99) 198 mg/dL (70-99) 262 mg/dL (70-99) O2 Saturation 96 % (92-99) Arterial Blood pH 7.42 (7.35-7.45) Arterial Blood pCO2 at Patient Temp 48 mmHg (35-46) Arterial Blood pO2 at Patient Temp 82 mmHg (65-108) Arterial Blood HCO3 30 mmol/L (21-28) Arterial Blood Base Excess 5 mmol/L (-3-3) FiO2 70 Test 05/04/21 00:58 05/04/21 05:05 05/04/21 08:17 05/04/21 12:19 Glucose (Fingerstick) 259 mg/dL (70-99) 155 mg/dL (70-99) White Blood Count 25.1 x10^3/uL (4.0-11.0) Red Blood Count 3.15 x10^6/uL (4.30-5.70) Hemoglobin 8.4 g/dL (13.0-17.5) Hematocrit 26.2 % (39.0-53.0) Mean Corpuscular Volume 83 fL (79-100) Mean Corpuscular Hemoglobin 27 pg (25-35) Mean Corpuscular Hemoglobin Concent 32 g/dL (31-37) Red Cell Distribution Width 16.2 % (11.5-14.5) Platelet Count 350 x10^3/uL (140-400) Neutrophils (%) (Auto) 85 % (31-73) Lymphocytes (%) (Auto) 8 % (24-48) Monocytes (%) (Auto) 6 % (0-9) Eosinophils (%) (Auto) 1 % (0-3) Basophils (%) (Auto) 1 % (0-3) Neutrophils # (Auto) 21.3 x10^3/uL (1.8-7.7) Lymphocytes # (Auto) 2.0 x10^3/uL (1.0-4.8) Monocytes # (Auto) 1.4 x10^3/uL (0.0-1.1) Eosinophils # (Auto) 0.2 x10^3/uL (0.0-0.7) Basophils # (Auto) 0.2 x10^3/uL (0.0-0.2) Sodium Level 132 mmol/L (136-145) Potassium Level 3.8 mmol/L (3.5-5.1) Chloride Level 98 mmol/L (98-107) Carbon Dioxide Level 29 mmol/L (21-32) Anion Gap 5 (6-14) Blood Urea Nitrogen 63 mg/dL (8-26) Creatinine 3.3 mg/dL (0.7-1.3) Estimated GFR (Cockcroft-Gault) 22.3 Glucose Level 254 mg/dL (70-99) Calcium Level 8.1 mg/dL (8.5-10.1) Phosphorus Level 5.2 mg/dL (2.6-4.7) Magnesium Level 2.4 mg/dL (1.8-2.4) Albumin 1.4 g/dL (3.4-5.0) O2 Saturation 97 % (92-99) Arterial Blood pH 7.40 (7.35-7.45) Arterial Blood pCO2 at Patient Temp 41 mmHg (35-46) Arterial Blood pO2 at Patient Temp 97 mmHg (65-108) Arterial Blood HCO3 25 mmol/L (21-28) Arterial Blood Base Excess 0 mmol/L (-3-3) FiO2 70% vent Test 05/04/21 13:45 05/04/21 17:38 05/05/21 00:07 05/05/21 06:37 Urine Collection Type Unknown Urine Color Yellow Urine Clarity Clear Urine pH 5.5 (<5.0-8.0) Urine Specific [place] 1.015 (1.000-1.030) Urine Protein 100 mg/dL (NEG-TRACE) Urine Glucose (UA) Negative mg/dL (NEG) Urine Ketones (Stick) Negative mg/dL (NEG) Urine Blood Small (NEG) Urine Nitrite Negative (NEG) Urine Bilirubin Negative (NEG) Urine Urobilinogen Dipstick 1.0 mg/dL (0.2 mg/dL) Urine Leukocyte Esterase Negative (NEG) Urine RBC 0 /HPF (0-2) Urine WBC 0 /HPF (0-4) Urine Amorphous Sediment Present /HPF Urine Bacteria 0 /HPF (0-FEW) Urine Hyaline Casts Few /HPF Urine Granular Casts Few /HPF Urine Mucus Slight /LPF Glucose (Fingerstick) 233 mg/dL (70-99) 241 mg/dL (70-99) 235 mg/dL (70-99) Test 05/05/21 06:45 05/05/21 07:45 Sodium Level 132 mmol/L (136-145) Potassium Level 3.7 mmol/L (3.5-5.1) Chloride Level 97 mmol/L (98-107) Carbon Dioxide Level 29 mmol/L (21-32) Anion Gap 6 (6-14) Blood Urea Nitrogen 46 mg/dL (8-26) Creatinine 2.5 mg/dL (0.7-1.3) Estimated GFR (Cockcroft-Gault) 30.7 Glucose Level 226 mg/dL (70-99) Calcium Level 8.2 mg/dL (8.5-10.1) Phosphorus Level 4.6 mg/dL (2.6-4.7) Albumin 1.7 g/dL (3.4-5.0) O2 Saturation 95 % (92-99) Arterial Blood pH 7.45 (7.35-7.45) Arterial Blood pCO2 at Patient Temp 39 mmHg (35-46) Arterial Blood pO2 at Patient Temp 78 mmHg (65-108) Arterial Blood HCO3 27 mmol/L (21-28) Arterial Blood Base Excess 2 mmol/L (-3-3) FiO2 40 Laboratory Tests Test 05/04/21 12:19 05/04/21 13:45 05/04/21 17:38 05/05/21 00:07 Glucose (Fingerstick) 155 mg/dL (70-99) 233 mg/dL (70-99) 241 mg/dL (70-99) Urine Collection Type Unknown Urine Color Yellow Urine Clarity Clear Urine pH 5.5 (<5.0-8.0) Urine Specific [place] 1.015 (1.000-1.030) Urine Protein 100 mg/dL (NEG-TRACE) Urine Glucose (UA) Negative mg/dL (NEG) Urine Ketones (Stick) Negative mg/dL (NEG) Urine Blood Small (NEG) Urine Nitrite Negative (NEG) Urine Bilirubin Negative (NEG) Urine Urobilinogen Dipstick 1.0 mg/dL (0.2 mg/dL) Urine Leukocyte Esterase Negative (NEG) Urine RBC 0 /HPF (0-2) Urine WBC 0 /HPF (0-4) Urine Amorphous Sediment Present /HPF Urine Bacteria 0 /HPF (0-FEW) Urine Hyaline Casts Few /HPF Urine Granular Casts Few /HPF Urine Mucus Slight /LPF Test 05/05/21 06:37 05/05/21 06:45 05/05/21 07:45 Glucose (Fingerstick) 235 mg/dL (70-99) Sodium Level 132 mmol/L (136-145) Potassium Level 3.7 mmol/L (3.5-5.1) Chloride Level 97 mmol/L (98-107) Carbon Dioxide Level 29 mmol/L (21-32) Anion Gap 6 (6-14) Blood Urea Nitrogen 46 mg/dL (8-26) Creatinine 2.5 mg/dL (0.7-1.3) Estimated GFR (Cockcroft-Gault) 30.7 Glucose Level 226 mg/dL (70-99) Calcium Level 8.2 mg/dL (8.5-10.1) Phosphorus Level 4.6 mg/dL (2.6-4.7) Albumin 1.7 g/dL (3.4-5.0) O2 Saturation 95 % (92-99) Arterial Blood pH 7.45 (7.35-7.45) Arterial Blood pCO2 at Patient Temp 39 mmHg (35-46) Arterial Blood pO2 at Patient Temp 78 mmHg (65-108) Arterial Blood HCO3 27 mmol/L (21-28) Arterial Blood Base Excess 2 mmol/L (-3-3) FiO2 40 Medications Active Scripts Medications Dose Route/Sig Max Daily Dose Days Date Category Glyburide 2.5 Mg Tablet 1 Tab PO DAILY 04/19/21 Rx Polyethylene Glycol 3350 17 Gm Powd.pack 17 Gm PO DAILY 04/19/21 Rx Dok (Docusate Sodium) 100 Mg Capsule 100 Mg PO PRN DAILY PRN 30 04/19/21 Rx Bisacodyl 5 Mg Tablet. 5 Mg PO PRN DAILY PRN 14 04/19/21 Rx Acetaminophen 325 Mg Tablet 650 Mg PO PRN Q4HRS PRN 14 04/19/21 Rx Aspirin Ec (Aspirin) 81 Mg Tablet. 81 Mg PO DAILYWBKFT 30 04/19/21 Rx Hydralazine Hcl 25 Mg Tablet 25 Mg PO QID 30 04/19/21 Rx Fenofibrate 54 Mg Tablet 1 Tab PO DAILY 04/17/21 Reported Potassium Chloride (Potassium Chloride) 20 Meq Tablet.er 20 Meq PO DAILY 04/17/21 Reported Coreg (Carvedilol) 12.5 Mg Tablet 37.5 Mg PO BIDWMEALS 04/17/21 Reported Rosuvastatin Calcium 40 Mg Tablet 40 Mg PO QHS 04/17/21 Reported Gabapentin (Gabapentin) 100 Mg Capsule 200 Mg PO BID 04/17/21 Reported Montelukast Sodium Tablet (Montelukast Sodium) 10 Mg Tablet 10 Mg PO HS 04/17/21 Reported Protonix (Pantoprazole Sodium) 20 Mg Tablet. 2 Tab PO DAILY 04/17/21 Reported Amlodipine Besylate 5 Mg Tablet 5 Mg PO DAILY 04/17/21 Reported Furosemide 40 Mg Tablet 1 Tab PO DAILY 04/17/21 Reported Proair Hfa Inhaler (Albuterol Sulfate) 8.5 Gm Hfa.aer.ad 2 Puff IH PRN Q4-6HRS PRN 04/16/21 Reported Advair 100-50 Diskus (Fluticasone/Salmeterol) 1 Each Disk.w.dev 1 Puff IH BID 04/16/21 Reported Comments Impression . IMPRESSION: 1. Acute hypoxic respiratory failure, multifactorial/COVID-19 viral pneumonia/ARDS 2. Abnormal CT chest with bilateral diffuse interstitial infiltrates without any significant pleural effusion 3. Leukocytosis, sepsis 4. Non-ST segment elevation AL 5. History of tobacco use, suspect COPD, unknown FEV1 6. Chronic kidney disease. Worsening ILDA on CKD, on HD now 7. Metabolic acidosis multifactorial 8. Abnormal chest x-ray 9. Hypoglycemia, continue to monitor 10. Hypotension, suspect volume deficit,/possible sepsis 11. Fever Plan . Updated 05/04 Appreciate ID input Continue cefepime and daptomycin ABG noted, discussed with RT Monitor blood sugars Hemodialysis per nephrology Anticoagulation Changed, follow-up on central line tip cultures GI prophylaxis Chest x-ray from 730 reviewed, no significant change 05/04, updated ABG noted PaO2 of 97 Chest x-ray noted no significant change bilateral infiltrate So far cultures negative Antibiotics per ID Monitor blood sugars Hemodialysis per nephrology Patient not ready for spontaneous trial ADELSO AVILA MD May 05, 2021 08:27
--- NOTE | 2021-05-05 09:25 | PDOC ---
Infectious Disease Note Subjective: Subjective Patient intubated/sedated Vital Signs: Vital Signs Vital Signs Date Time Temp Pulse Resp B/P (MAP) Pulse Ox O2 Delivery O2 Flow Rate FiO2 05/05/21 08:11 57 129/54 05/05/21 08:01 20 100 Ventilator 05/05/21 07:12 97.5 97.5 Physical Exam: PHYSICAL EXAM GENERAL: Well-developed and well-nourished male, intubated, sedated. HEENT: Normocephalic, atraumatic, and anicteric. ETT and OGT present. NECK: Right IJ present. HEART: S1, S2. LUNGS: Decreased breath sounds. ABDOMEN: Soft, obese, bowel sounds present. GENITOURINARY: Nieves in place. EXTREMITIES: Edema present. DERMATOLOGIC: Warm, dry, no generalized rash. NEUROLOGIC: Intubated. PSYCHIATRIC: Unable to obtain. Medications: Inpatient Meds: Medications reviewed. Labs: Lab Laboratory Tests Test 05/04/21 12:19 05/04/21 13:45 05/04/21 17:38 05/05/21 00:07 Glucose (Fingerstick) 155 mg/dL (70-99) 233 mg/dL (70-99) 241 mg/dL (70-99) Urine Collection Type Unknown Urine Color Yellow Urine Clarity Clear Urine pH 5.5 (<5.0-8.0) Urine Specific [place] 1.015 (1.000-1.030) Urine Protein 100 mg/dL (NEG-TRACE) Urine Glucose (UA) Negative mg/dL (NEG) Urine Ketones (Stick) Negative mg/dL (NEG) Urine Blood Small (NEG) Urine Nitrite Negative (NEG) Urine Bilirubin Negative (NEG) Urine Urobilinogen Dipstick 1.0 mg/dL (0.2 mg/dL) Urine Leukocyte Esterase Negative (NEG) Urine RBC 0 /HPF (0-2) Urine WBC 0 /HPF (0-4) Urine Amorphous Sediment Present /HPF Urine Bacteria 0 /HPF (0-FEW) Urine Hyaline Casts Few /HPF Urine Granular Casts Few /HPF Urine Mucus Slight /LPF Test 05/05/21 06:37 05/05/21 06:45 05/05/21 07:45 Glucose (Fingerstick) 235 mg/dL (70-99) Sodium Level 132 mmol/L (136-145) Potassium Level 3.7 mmol/L (3.5-5.1) Chloride Level 97 mmol/L (98-107) Carbon Dioxide Level 29 mmol/L (21-32) Anion Gap 6 (6-14) Blood Urea Nitrogen 46 mg/dL (8-26) Creatinine 2.5 mg/dL (0.7-1.3) Estimated GFR (Cockcroft-Gault) 30.7 Glucose Level 226 mg/dL (70-99) Calcium Level 8.2 mg/dL (8.5-10.1) Phosphorus Level 4.6 mg/dL (2.6-4.7) Albumin 1.7 g/dL (3.4-5.0) O2 Saturation 95 % (92-99) Arterial Blood pH 7.45 (7.35-7.45) Arterial Blood pCO2 at Patient Temp 39 mmHg (35-46) Arterial Blood pO2 at Patient Temp 78 mmHg (65-108) Arterial Blood HCO3 27 mmol/L (21-28) Arterial Blood Base Excess 2 mmol/L (-3-3) FiO2 40 Objective: Assessment: 1. Febrile illness could be healthcare-associated infection 2. Leukocytosis, on steroids. 3. COVID-19 pneumonia. 4. Acute hypoxic respiratory failure status post intubation. 5. Congestive heart failure, acute on chronic. 6. Acute kidney injury on chronic kidney disease on hemodialysis. 7. Diabetes mellitus 2. 8. Atrial fibrillation. 9. Anemia. 10. Protein-calorie malnutrition. Plan: Plan of Care 1. Continue cefepime and daptomycin. 2. Follow-up labs and cultures 3. Change central line and send cath tip for cultures. 4. Check C. difficile PCR 5. Continue supportive care. 6. Critically ill. Discussed with nursing staff ALAYNA RIVERO MD May 05, 2021 09:25
[2021-05-05 10:30] LABS: BASO # 0.1 x10^3/uL (0.0-0.2); BASO % 0 % (0-3); EOS # 0.2 x10^3/uL (0.0-0.7); EOS % 1 % (0-3); HEMATOCRIT 23.8 % (39.0-53.0); HEMOGLOBIN 7.9 g/dL (13.0-17.5); LYMPH # 1.5 x10^3/uL (1.0-4.8); LYMPH % 6 % (24-48); MEAN CORPUSCULAR HEMOGLOBIN 27 pg (25-35); MEAN CORPUSCULAR HGB CONC 33 g/dL (31-37); MEAN CORPUSCULAR VOLUME 82 fL (79-100); MONO # 1.1 x10^3/uL (0.0-1.1); MONO % 5 % (0-9); NEUT # 21.7 x10^3/uL (1.8-7.7); NEUT % 88 % (31-73); PLATELET COUNT 335 x10^3/uL (140-400); RED BLOOD COUNT 2.92 x10^6/uL (4.30-5.70); RED CELL DISTRIBUTION WIDTH 16.1 % (11.5-14.5); WHITE BLOOD COUNT 24.6 x10^3/uL (4.0-11.0)
--- NOTE | 2021-05-05 12:38 | PDOC ---
[facility] PROGRESS NOTE Date of Service DOS: DATE: 05/05/21 TIME: 12:37 Chief Complaint Chief Complaint Respiratory failure requiring intubation [place] [address] Acute [place] A. fib SIRS Hypertension with hypertensive urgency Hyperlipidemia CKD Diabetes History of bilateral subclavian stenosis History of marijuana use Severe protein calorie malnutrition History of Present Illness History of Present Illness 05/05/2020 Patient seen and examined in the [place] [address] ICU He remains on the vent AC/20/500/40 percent with 5 of PEEP Discussed with RN Chart reviewed Has SCDs in place Nieves to bedside drainage He remains critically ill 05/04/2021 Patient seen and examined in the [place] [address] ICU Still intubated Sedated with propofol and fentanyl AC/20/500/70 percent with 5 of PEEP On dialysis currently Has SCDs in Nieves to bedside drainage Discussed with RN Chart reviewed 05/03/2021 Patient seen and examined in the [place] [address] ICU He is still intubated AC/20/500/70 percent with 5 of PEEP Has SCDs in place Nieves to bedside drainage Sedated with fentanyl Versed and propofol Discussed are Chart reviewed Remains critically ill 05/02/2021 Patient seen and examined in the [place] [address] ICU He is sedated with propofol fentanyl and Versed Ventilator settings as follow AC/20/500/40 percent with 5 of PEEP Has Nieves to bedside drainage Chart reviewed Discussed with RN He remains critically ill 05/01/2021 Patient seen and examined in the [place] [address] ICU He is still intubated AC/20/500/40 percent with 5 of PEEP In A. fib Sedated with propofol fentanyl and Versed Has a heparin drip Missy with RN Chart reviewed He remains critically 04/30/2020 Patient seen and examined in the [place] [address] ICU He remains on the vent AC/20/500/40 5% with 5 PEEP Currently on dialysis Has OG feeds running Has a Nieves to bedside drainage Sedated with propofol and fentanyl Reviewed chart Discussed with RN He remains critically ill Mr Cunha is a 75 yo male w/ PMHx CAD, HTN, Hyperlipidemia, subclavian steel syndrome, subclavian stenosis s/p left subclavian sent placement complicated by retroperitoneal hematoma s/p evacuation in 08/2015), asthma, BART, CKD, DM2 who presented from home with home health care noted that he was short of breath and valverde with O2 saturations less than 89% as low as 84% not improved with nasal cannulated oxygen placed on CPAP and brought to ED for further care. He was just discharged from the hospital a week ago on April 19, 2021 for abdominal pain and was going for further cardiac testing with outpatient stress testing scheduled on May 28, 2021. Had echocardiogram April 17, 2021 with normal-appearing EF with moderate concentric LVH no significant valvular abnormalities. WBC 20, Hb 10.7, platelets 268, NA 140, K3.8, BUN 21, CR 2.9, glucose 162, albumin 3, troponin I 1.372, NT proBNP 33,318. EKG appears sinus tachycardia rate of 105 bpm with multiple PACs small ST depressions in lead II and V5. TWI in V6. Chest radiograph with diffuse interstitial and alveolar opacities and ET tube 5.8 cm above the leilani. Due to worsening respiratory status ED physician elected to intubate patient. Seen postintubation. Blood pressure little low after propofol bolus, but improved. Significant white frothy sputum per ET tube. Admitted to ICU for further care 04/29/2021: Afebrile, remains on vent at FiO2 45%, PEEP 5. WBC 20.4. Hemodialysis per nephrology. We will continue treatment with empiric antibiotics, remdesivir, and steroids. Continue heparin infusion and supportive care. Critical care time 30 minutes reviewing chart, review labs, review imaging, discussion with RN. 04/28/2021: Afebrile. FiO2 50%, PEEP 5. Nontunneled HD catheter placed yesterday due to worsening kidney function; eGFR 16 (CKD4). Chest x-ray showed unchanged interstitial opacities. Continue empiric antibiotics, steroids, and remdesivir. Continue heparin infusion, and continue to follow cardiology recommendations on new diagnosis of A. fib. Critical care time 30 minutes reviewing chart, review labs, review imaging, discussion with RN. 04/27/2021: Afebrile. On vent with FiO2 50%, PEEP 5. Troponin 2.8 yesterday; probable type II, demand ischemia. New onset A. fib. Continue heparin drip and as needed digoxin, per cardiology. Continue treatment with remdesivir, steroids, and prophylactic antibiotics. CBG 323 this morning; will add basal insulin. Critical care 30 minutes spent reviewing labs, reviewing imaging, reviewing charts, and discussion with RN. 04/26/2021: COVID-19 positive. Febrile overnight that was managed with cooling blankets. On vent with FiO2 50%, PEEP 5. Per cardiology, elevated troponins likely secondary to demand ischemia; continue heparin drip per cardiology. Maintain fluid balance and avoid nephrotoxins. Continue treatment with remdesivir, steroids, and prophylactic antibiotics. 30 minutes critical care time spent reviewing charts, reviewing labs, reviewing imaging, and discussion with RN. 04/25/2021: On vent FiO2 50, PEEP 5. Febrile, T-max 103.3. Patient was initiated on cooling blankets. Procalcitonin 0.13. Continue coverage for hospital-acquired pneumonia with cefepime. MRSA PCR pending. Critical care time 30 minutes spent reviewing charts, reviewing labs, review of imaging, discussion with RN. Vitals/I&O Vitals/I&O: Vital Signs Date Time Temp Pulse Resp B/P (MAP) Pulse Ox O2 Delivery O2 Flow Rate FiO2 05/05/21 12:08 97.6 58 20 181/69 (106) 100 Ventilator 97.6 I & O 05/04/21 05/04/21 05/05/21 15:00 23:00 07:00 Intake Total 1033 ml 1073 ml 2418 ml Output Total 210 ml 585 ml 380 ml Balance 823 ml 488 ml 2038 ml Physical Exam Physical Exam: GENERAL: Well-developed and well-nourished male, intubated, sedated. HEENT: Normocephalic, atraumatic, and anicteric. ETT and OGT present. NECK: Right IJ present. HEART: S1, S2. LUNGS: Decreased breath sounds. ABDOMEN: Soft, obese, bowel sounds present. GENITOURINARY: Nieves in place. EXTREMITIES: Edema present. DERMATOLOGIC: Warm, dry, no generalized rash. NEUROLOGIC: Intubated. PSYCHIATRIC: Unable to obtain. General: Other (Intubated sedated) Heart: Other (Tachycardic) Abdomen: Soft, Other (obese) Extremities: Other (trace LE edema ) Skin: No rashes, No breakdown, No significant lesion Labs Labs: Laboratory Tests Test 05/04/21 13:45 05/04/21 17:38 05/05/21 00:07 05/05/21 06:37 Urine Collection Type Unknown Urine Color Yellow Urine Clarity Clear Urine pH 5.5 (<5.0-8.0) Urine Specific [place] 1.015 (1.000-1.030) Urine Protein 100 mg/dL (NEG-TRACE) Urine Glucose (UA) Negative mg/dL (NEG) Urine Ketones (Stick) Negative mg/dL (NEG) Urine Blood Small (NEG) Urine Nitrite Negative (NEG) Urine Bilirubin Negative (NEG) Urine Urobilinogen Dipstick 1.0 mg/dL (0.2 mg/dL) Urine Leukocyte Esterase Negative (NEG) Urine RBC 0 /HPF (0-2) Urine WBC 0 /HPF (0-4) Urine Amorphous Sediment Present /HPF Urine Bacteria 0 /HPF (0-FEW) Urine Hyaline Casts Few /HPF Urine Granular Casts Few /HPF Urine Mucus Slight /LPF Glucose (Fingerstick) 233 mg/dL (70-99) 241 mg/dL (70-99) 235 mg/dL (70-99) Test 05/05/21 06:45 05/05/21 07:45 05/05/21 11:58 White Blood Count 24.6 x10^3/uL (4.0-11.0) Red Blood Count 2.92 x10^6/uL (4.30-5.70) Hemoglobin 7.9 g/dL (13.0-17.5) Hematocrit 23.8 % (39.0-53.0) Mean Corpuscular Volume 82 fL (79-100) Mean Corpuscular Hemoglobin 27 pg (25-35) Mean Corpuscular Hemoglobin Concent 33 g/dL (31-37) Red Cell Distribution Width 16.1 % (11.5-14.5) Platelet Count 335 x10^3/uL (140-400) Neutrophils (%) (Auto) 88 % (31-73) Lymphocytes (%) (Auto) 6 % (24-48) Monocytes (%) (Auto) 5 % (0-9) Eosinophils (%) (Auto) 1 % (0-3) Basophils (%) (Auto) 0 % (0-3) Neutrophils # (Auto) 21.7 x10^3/uL (1.8-7.7) Lymphocytes # (Auto) 1.5 x10^3/uL (1.0-4.8) Monocytes # (Auto) 1.1 x10^3/uL (0.0-1.1) Eosinophils # (Auto) 0.2 x10^3/uL (0.0-0.7) Basophils # (Auto) 0.1 x10^3/uL (0.0-0.2) Sodium Level 132 mmol/L (136-145) Potassium Level 3.7 mmol/L (3.5-5.1) Chloride Level 97 mmol/L (98-107) Carbon Dioxide Level 29 mmol/L (21-32) Anion Gap 6 (6-14) Blood Urea Nitrogen 46 mg/dL (8-26) Creatinine 2.5 mg/dL (0.7-1.3) Estimated GFR (Cockcroft-Gault) 30.7 Glucose Level 226 mg/dL (70-99) Calcium Level 8.2 mg/dL (8.5-10.1) Phosphorus Level 4.6 mg/dL (2.6-4.7) Albumin 1.7 g/dL (3.4-5.0) O2 Saturation 95 % (92-99) Arterial Blood pH 7.45 (7.35-7.45) Arterial Blood pCO2 at Patient Temp 39 mmHg (35-46) Arterial Blood pO2 at Patient Temp 78 mmHg (65-108) Arterial Blood HCO3 27 mmol/L (21-28) Arterial Blood Base Excess 2 mmol/L (-3-3) FiO2 40 Glucose (Fingerstick) 222 mg/dL (70-99) Assessment and Plan Assessmemt and Plan Problems Medical Problems: (1) Elevated troponin Status: Acute (2) Person under investigation for COVID-19 Status: Acute (3) Pulmonary edema Status: Acute Respiratory failure requiring intubation COVID-19 Acute VA A. fib SIRS Hypertension with hypertensive urgency Hyperlipidemia CKD Diabetes History of bilateral subclavian stenosis History of marijuana use Severe protein calorie malnutrition Plan ICU monitoring Covid protocol Trend ABG and chest x-ray Heparin drip HD per nephrology Respiratory isolation Continue Nieves Vent weaning Home meds Trend labs DVT prophylaxis Full code Appreciate subspecialist input Prognosis guarded CC time 31-minute Comment Review of Relevant I have reviewed the following items juanita (where applicable) has been applied. Medications: Current Medications Medications (Trade) Dose Ordered Sig/Jodie Route PRN Reason Start Time Stop Time Status Last Admin Dose Admin Cefepime HCl (Maxipime) 1 gm Q24H IVP 05/04/21 16:00 05/04/21 15:24 Daptomycin 600 mg/ Sodium Chloride 50 ml @ 100 mls/hr Q48H IV 05/04/21 15:00 05/04/21 15:24 Justifications for Admission General Conditions Altered mental status?: Yes Justification of admission: Patient has tachycardia (> 100 beats per minute) or hypotension (SBP < 90 mm Hg) leading to inadequate systemic perfusion as indicated by severe/persistent altered mental status. Other Justification ILDA ELENI PEARL III DO May 05, 2021 12:38
--- NOTE | 2021-05-05 14:48 | PDOC ---
PROGRESS NOTES Date of Service: DATE: 05/05/21 TIME: 14:46 Subjective Subjective Intubated and sedated Objective Objective Vital Signs Date Time Temp Pulse Resp B/P (MAP) Pulse Ox O2 Delivery O2 Flow Rate FiO2 05/05/21 14:00 53 20 163/116 (132) 100 Ventilator 05/05/21 12:08 97.6 97.6 Intake and Output 05/05/21 07:00 Intake Total 4524 ml Output Total 1175 ml Balance 3349 ml IV Total 1043 ml Tube Feeding 2441 ml Other 1040 ml Output Urine Total 1175 ml Gastric Drainage Total 0 ml Physical Exam Abdomen: Soft, Other (obese) Heart: Other (Tachycardic) Extremities: Other (trace LE edema ) General: Other (Intubated sedated) HEENT: Other (Intubated) Lungs: Other (MV) Neuro: Other (unable to assess) Psych/Mental Status: Other (sedated) Skin: No rashes, No breakdown, No significant lesion Assessment Assessment 1. Acute respiratory failure secondary to CHF, s/p intubation. COVID + 2. Acute on chronic diastolic CHF 3. Hypertensive urgency; controlled 4. NSTEMI; trop highest 2.8. Echo last week with preserved LV systolic function with moderate LVH. Most probable type II, demand ischemia in setting of above, although underling ischemic cannot be ruled out 5. ? CAD; details unknown 6. Hyperlipidemia; statin 7. 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 Diabetes, II 9. Leukocytosis; fevers 10. H/o bilateral subclavian stenosis s/p left subclavian sent placement complicated by retroperitoneal hematoma s/p evacuation in 08/2015. 11. New AFIB with RVR: maintaining SR with PACs 12. Protein malnutrition 13. anemia: Recommendations 1. ASA, statin 2. Metoprolol for rate control 3. Amiodarone for rhyhtm maintenance 4. SQ heparin 5. Hydralazine, Labetalol IV PRN 6. Fluid offloading via HD. Nephrology following 7. Continue vent management per pulmonary team and treatment of Covid pneumonia per ID team Plan Plan of Care Problems Medical Problems: (1) Elevated troponin Status: Acute (2) Person under investigation for COVID-19 Status: Acute (3) Pulmonary edema Status: Acute Comment Review of Relevant I have reviewed the following items juanita (where applicable) has been applied. Labs Laboratory Tests Test 05/04/21 17:38 05/05/21 00:07 05/05/21 06:37 05/05/21 06:45 Glucose (Fingerstick) 233 mg/dL (70-99) 241 mg/dL (70-99) 235 mg/dL (70-99) White Blood Count 24.6 x10^3/uL (4.0-11.0) Red Blood Count 2.92 x10^6/uL (4.30-5.70) Hemoglobin 7.9 g/dL (13.0-17.5) Hematocrit 23.8 % (39.0-53.0) Mean Corpuscular Volume 82 fL (79-100) Mean Corpuscular Hemoglobin 27 pg (25-35) Mean Corpuscular Hemoglobin Concent 33 g/dL (31-37) Red Cell Distribution Width 16.1 % (11.5-14.5) Platelet Count 335 x10^3/uL (140-400) Neutrophils (%) (Auto) 88 % (31-73) Lymphocytes (%) (Auto) 6 % (24-48) Monocytes (%) (Auto) 5 % (0-9) Eosinophils (%) (Auto) 1 % (0-3) Basophils (%) (Auto) 0 % (0-3) Neutrophils # (Auto) 21.7 x10^3/uL (1.8-7.7) Lymphocytes # (Auto) 1.5 x10^3/uL (1.0-4.8) Monocytes # (Auto) 1.1 x10^3/uL (0.0-1.1) Eosinophils # (Auto) 0.2 x10^3/uL (0.0-0.7) Basophils # (Auto) 0.1 x10^3/uL (0.0-0.2) Sodium Level 132 mmol/L (136-145) Potassium Level 3.7 mmol/L (3.5-5.1) Chloride Level 97 mmol/L (98-107) Carbon Dioxide Level 29 mmol/L (21-32) Anion Gap 6 (6-14) Blood Urea Nitrogen 46 mg/dL (8-26) Creatinine 2.5 mg/dL (0.7-1.3) Estimated GFR (Cockcroft-Gault) 30.7 Glucose Level 226 mg/dL (70-99) Calcium Level 8.2 mg/dL (8.5-10.1) Phosphorus Level 4.6 mg/dL (2.6-4.7) Albumin 1.7 g/dL (3.4-5.0) Test 05/05/21 07:45 05/05/21 11:58 O2 Saturation 95 % (92-99) Arterial Blood pH 7.45 (7.35-7.45) Arterial Blood pCO2 at Patient Temp 39 mmHg (35-46) Arterial Blood pO2 at Patient Temp 78 mmHg (65-108) Arterial Blood HCO3 27 mmol/L (21-28) Arterial Blood Base Excess 2 mmol/L (-3-3) FiO2 40 Glucose (Fingerstick) 222 mg/dL (70-99) Microbiology 05/04/21 Blood Culture - Preliminary, Resulted NO GROWTH AFTER 1 DAY Medications Current Medications Cefepime HCl (Maxipime) 1 gm Q24H IVP Last administered on 05/04/21at 15:24; Start 05/04/21 at 16:00 Daptomycin 600 mg/ Sodium Chloride 50 ml @ 100 mls/hr Q48H IV Last administered on 05/04/21at 15:24; Start 05/04/21 at 15:00 Vitals/I & O Vital Sign - Last 24 Hours 05/04/21 05/04/21 05/04/21 05/04/21 15:00 15:03 16:00 16:00 Temp 97.3 97.2 97.3 97.2 Pulse 59 74 Resp 20 20 B/P (MAP) 163/58 (93) 154/70 (98) Pulse Ox 100 99 100 O2 Delivery Ventilator Ventilator Ventilator Mechanical Ventilator 05/04/21 05/04/21 05/04/21 05/04/21 17:00 17:13 17:47 17:48 Temp 97.5 97.5 Pulse 56 52 52 Resp 20 B/P (MAP) 159/60 (93) 178/60 178/75 Pulse Ox 100 98 O2 Delivery Ventilator Ventilator 05/04/21 05/04/21 05/04/21 05/04/21 18:00 19:00 20:00 20:00 Temp 97.5 96.4 97.5 96.4 Pulse 60 60 60 Resp 20 20 20 B/P (MAP) 150/62 (91) 153/62 (92) 162/70 (100) Pulse Ox 100 100 100 O2 Delivery Ventilator Ventilator Ventilator Mechanical Ventilator 05/04/21 05/04/21 05/04/21 05/04/21 20:00 20:41 21:00 21:11 Pulse 70 Resp 20 20 20 B/P (MAP) 136/66 (89) Pulse Ox 98 100 100 100 O2 Delivery Ventilator Ventilator 05/04/21 05/04/21 05/04/21 05/04/21 22:00 23:00 23:59 23:59 Temp 97.3 97.3 Pulse 68 67 56 Resp 20 20 20 B/P (MAP) 118/63 (81) 136/57 (83) 142/58 (86) Pulse Ox 100 100 100 O2 Delivery Ventilator Ventilator Mechanical Ventilator Ventilator 05/05/21 05/05/21 05/05/21 05/05/21 00:00 00:03 01:00 02:00 Pulse 56 57 85 Resp 20 20 B/P (MAP) 142/58 152/66 (94) 166/75 (105) Pulse Ox 99 100 100 O2 Delivery Ventilator Ventilator Ventilator 05/05/21 05/05/21 05/05/21 05/05/21 02:07 03:00 04:00 04:00 Temp 96.3 96.3 Pulse 85 57 57 Resp 20 20 B/P (MAP) 166/75 104/45 (64) 146/56 (86) Pulse Ox 100 99 100 O2 Delivery Ventilator Ventilator Ventilator 05/05/21 05/05/21 05/05/21 05/05/21 04:00 05:00 06:00 06:30 Pulse 59 54 50 Resp 20 20 B/P (MAP) 154/63 (93) 166/66 (99) 144/67 Pulse Ox 96 100 O2 Delivery Mechanical Ventilator Ventilator Ventilator 05/05/21 05/05/21 05/05/21 05/05/21 07:12 07:45 08:00 08:01 Temp 97.5 97.5 Pulse 60 57 Resp 20 20 B/P (MAP) 153/64 (93) 129/54 (79) Pulse Ox 100 100 100 O2 Delivery Ventilator Ventilator Mechanical Ventilator Ventilator 05/05/21 05/05/21 05/05/21 05/05/21 08:11 09:00 09:40 10:03 Pulse 57 59 53 Resp 20 20 B/P (MAP) 129/54 122/60 (80) 125/52 (76) Pulse Ox 99 99 99 O2 Delivery Ventilator Ventilator Ventilator 05/05/21 05/05/21 05/05/21 05/05/21 11:02 11:35 11:56 12:05 Pulse 54 54 Resp 20 B/P (MAP) 171/73 (105) 171/73 Pulse Ox 100 100 O2 Delivery Ventilator Ventilator Mechanical Ventilator 05/05/21 05/05/21 05/05/21 05/05/21 12:08 12:59 13:09 13:20 Temp 97.6 97.6 Pulse 58 61 Resp 20 20 20 B/P (MAP) 181/69 (106) 168/79 (108) Pulse Ox 100 100 100 100 O2 Delivery Ventilator Ventilator Ventilator Ventilator 05/05/21 14:00 Pulse 53 Resp 20 B/P (MAP) 163/116 (132) Pulse Ox 100 O2 Delivery Ventilator Intake and Output 05/04/21 05/04/21 05/05/21 15:00 23:00 07:00 Intake Total 1033 ml 1073 ml 2418 ml Output Total 210 ml 585 ml 380 ml Balance 823 ml 488 ml 2038 ml DESTINY CAMPBELL MD May 05, 2021 14:48
[2021-05-05] MEDS: ATORVASTATIN CALCIUM 40 MG TABLET. PO SCH (22:14)
[2021-05-05] MEDS: MONTELUKAST SODIUM 10 MG TABLET. PO SCH (22:14)
[2021-05-05] MEDS: INSULIN GLARGINE SYRINGE. SQ SCH (22:17)
[2021-05-06] VITALS (17 sets, daily range): BP systolic 96–206; BP diastolic 46–101
[2021-05-06] MEDS: METOPROLOL IV PUSH 5 MG/5 ML VIAL. IVP SCH ×4 (00:40→17:18)
[2021-05-06] MEDS: INSULIN LISPRO 300 UNITS/3 ML VIAL. SQ SCH ×4 (01:01→17:21)
[2021-05-06] MEDS: PROPOFOL 100 ML IV PRN ×6 (01:07→22:33)
[2021-05-06 07:07] LABS: BASO # 0.1 x10^3/uL (0.0-0.2); BASO % 1 % (0-3); EOS # 0.3 x10^3/uL (0.0-0.7); EOS % 2 % (0-3); HEMATOCRIT 23.1 % (39.0-53.0); HEMOGLOBIN 7.6 g/dL (13.0-17.5); LYMPH # 1.5 x10^3/uL (1.0-4.8); LYMPH % 8 % (24-48); MEAN CORPUSCULAR HEMOGLOBIN 27 pg (25-35); MEAN CORPUSCULAR HGB CONC 33 g/dL (31-37); MEAN CORPUSCULAR VOLUME 81 fL (79-100); MONO % 5 % (0-9); NEUT # 15.9 x10^3/uL (1.8-7.7); NEUT % 85 % (31-73); PLATELET COUNT 346 x10^3/uL (140-400); RED BLOOD COUNT 2.85 x10^6/uL (4.30-5.70); RED CELL DISTRIBUTION WIDTH 15.7 % (11.5-14.5); WHITE BLOOD COUNT 18.7 x10^3/uL (4.0-11.0)
[2021-05-06 07:10] LABS: ALBUMIN 1.5 g/dL (3.4-5.0); CREATININE 2.9 mg/dL (0.7-1.3); GFR 25.9; PHOSPHORUS 5.3 mg/dL (2.6-4.7); POTASSIUM 3.2 mmol/L (3.5-5.1)
[2021-05-06] MEDS: FUROSEMIDE 40 MG/4 ML VIAL. IVP SCH ×3 (07:30→21:58)
[2021-05-06] MEDS: HEPARIN for SUB-Q USE 5,000 UNIT/ML VIAL. SQ SCH ×3 (07:32→21:04)
[2021-05-06] MEDS: PANTOPRAZOLE IV PUSH 40 MG VIAL. IVP SCH (07:34)
--- NOTE | 2021-05-06 07:50 | NUR ---
0715- Stopped sedation on patient. 0745- Restart sedation on patient due to increased BP 201/101, increased HR 120.
--- NOTE | 2021-05-06 08:06 | PDOC ---
Infectious Disease Note Subjective: Subjective Patient intubated/sedated Vital Signs: Vital Signs Vital Signs Date Time Temp Pulse Resp B/P (MAP) Pulse Ox O2 Delivery O2 Flow Rate FiO2 05/06/21 07:45 120 20 201/101 (134) 100 Ventilator 05/06/21 07:01 98.4 98.4 Physical Exam: PHYSICAL EXAM GENERAL: Well-developed and well-nourished male, intubated, sedated. HEENT: Normocephalic, atraumatic, and anicteric. ETT and OGT present. NECK: Right IJ removed, right dialysis catheter present clean HEART: S1, S2. LUNGS: Decreased breath sounds. ABDOMEN: Soft, obese, bowel sounds present. GENITOURINARY: Nieves in place. EXTREMITIES: Edema present. DERMATOLOGIC: Warm, dry, no generalized rash. NEUROLOGIC: Intubated. PSYCHIATRIC: Unable to obtain. Medications: Inpatient Meds: Medications reviewed. Labs: Lab Laboratory Tests Test 05/05/21 11:58 05/05/21 17:30 05/06/21 00:42 05/06/21 06:45 Glucose (Fingerstick) 222 mg/dL (70-99) 261 mg/dL (70-99) 199 mg/dL (70-99) White Blood Count 18.7 x10^3/uL (4.0-11.0) Red Blood Count 2.85 x10^6/uL (4.30-5.70) Hemoglobin 7.6 g/dL (13.0-17.5) Hematocrit 23.1 % (39.0-53.0) Mean Corpuscular Volume 81 fL (79-100) Mean Corpuscular Hemoglobin 27 pg (25-35) Mean Corpuscular Hemoglobin Concent 33 g/dL (31-37) Red Cell Distribution Width 15.7 % (11.5-14.5) Platelet Count 346 x10^3/uL (140-400) Neutrophils (%) (Auto) 85 % (31-73) Lymphocytes (%) (Auto) 8 % (24-48) Monocytes (%) (Auto) 5 % (0-9) Eosinophils (%) (Auto) 2 % (0-3) Basophils (%) (Auto) 1 % (0-3) Neutrophils # (Auto) 15.9 x10^3/uL (1.8-7.7) Lymphocytes # (Auto) 1.5 x10^3/uL (1.0-4.8) Monocytes # (Auto) 1.0 x10^3/uL (0.0-1.1) Eosinophils # (Auto) 0.3 x10^3/uL (0.0-0.7) Basophils # (Auto) 0.1 x10^3/uL (0.0-0.2) Sodium Level 134 mmol/L (136-145) Potassium Level 3.2 mmol/L (3.5-5.1) Chloride Level 97 mmol/L (98-107) Carbon Dioxide Level 29 mmol/L (21-32) Anion Gap 8 (6-14) Blood Urea Nitrogen 56 mg/dL (8-26) Creatinine 2.9 mg/dL (0.7-1.3) Estimated GFR (Cockcroft-Gault) 25.9 Glucose Level 172 mg/dL (70-99) Calcium Level 8.0 mg/dL (8.5-10.1) Phosphorus Level 5.3 mg/dL (2.6-4.7) Albumin 1.5 g/dL (3.4-5.0) Objective: Assessment: 1. Febrile illness could be healthcare-associated infection 2. Leukocytosis, on steroids. 3. COVID-19 pneumonia. 4. Acute hypoxic respiratory failure status post intubation. 5. Congestive heart failure, acute on chronic. 6. Acute kidney injury on chronic kidney disease on hemodialysis. 7. Diabetes mellitus 2. 8. Atrial fibrillation. 9. Anemia. 10. Protein-calorie malnutrition. 11. Hypertention Plan: Plan of Care 1. Continue cefepime , DC daptomycin 2. Follow-up labs and cultures 3. Change central line and send cath tip for cultures. 4. Check C. difficile PCR 5. Continue supportive care. 6. Critically ill. Discussed with nursing staff ALAYNA RIVERO MD May 06, 2021 08:06
[2021-05-06 08:11] LABS: BASE EXCESS ABG 1 mmol/L (-3-3); HCO3 ABG 26 mmol/L (21-28); PCO2 ABG 40 mmHg (35-46); PO2 ABG 67 mmHg (65-108); SAT O2 ABG 93 % (92-99)
[2021-05-06 08:18] LABS: FIO2 ABG 40
[2021-05-06] MEDS ORDERED: POTASSIUM CHLORIDE 20MEQ 100 ML IV ONE (08:30)
[2021-05-06] MEDS: ASPIRIN CHEWABLE 81 MG TABLET. PO SCH (08:38)
[2021-05-06] MEDS: DEXAMETHASONE SOD PHOS 4 MG/ML VIAL IVP SCH (08:38)
[2021-05-06] MEDS: AMIODARONE HCL 200 MG TABLET. PO SCH (08:42)
--- NOTE | 2021-05-06 10:48 | PDOC ---
PROGRESS NOTES Date of Service: DATE: 05/06/21 TIME: 10:47 Subjective Subjective Intubated and sedated Objective Objective Vital Signs Date Time Temp Pulse Resp B/P (MAP) Pulse Ox O2 Delivery O2 Flow Rate FiO2 05/06/21 10:09 51 20 96/46 (63) 99 Ventilator 05/06/21 07:01 98.4 98.4 Intake and Output 05/06/21 07:00 Intake Total 3729 ml Output Total 1085 ml Balance 2644 ml IV Total 431 ml Tube Feeding 2014 ml Other 1284 ml Output Urine Total 1085 ml Gastric Drainage Total 0 ml Physical Exam Abdomen: Soft, Other (obese) Heart: Other (Tachycardic) Extremities: Other (trace LE edema ) General: Other (Intubated sedated) HEENT: Other (Intubated) Lungs: Other (MV) Neuro: Other (unable to assess) Psych/Mental Status: Other (sedated) Skin: No rashes, No breakdown, No significant lesion Assessment Assessment 1. Acute respiratory failure secondary to CHF, s/p intubation. COVID + 2. Acute on chronic diastolic CHF 3. Hypertensive urgency; controlled 4. NSTEMI; trop highest 2.8. Echo last week with preserved LV systolic function with moderate LVH. Most probable type II, demand ischemia in setting of above, although underling ischemic cannot be ruled out 5. ? CAD; details unknown 6. Hyperlipidemia; statin 7. 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 Diabetes, II 9. Leukocytosis; fevers 10. H/o bilateral subclavian stenosis s/p left subclavian sent placement complicated by retroperitoneal hematoma s/p evacuation in 08/2015. 11. New AFIB with RVR: maintaining SR with PACs 12. Protein malnutrition 13. anemia: Hgb at 8.4 Recommendations 1. ASA, statin 2. Metoprolol for rate control 3. Amiodarone for rhyhtm maintenance 4. SQ heparin 5. Hydralazine, Labetalol IV PRN 6. Fluid offloading via HD. Defer lasix to nephrology 7. Ongoing lung optimization, treatment of COVID PNA as per pulm 8. Supportive care Plan Plan of Care Problems Medical Problems: (1) Elevated troponin Status: Acute (2) Person under investigation for COVID-19 Status: Acute (3) Pulmonary edema Status: Acute Comment Review of Relevant I have reviewed the following items juanita (where applicable) has been applied. Labs Laboratory Tests Test 05/05/21 11:58 05/05/21 17:30 05/06/21 00:42 05/06/21 06:45 Glucose (Fingerstick) 222 mg/dL (70-99) 261 mg/dL (70-99) 199 mg/dL (70-99) White Blood Count 18.7 x10^3/uL (4.0-11.0) Red Blood Count 2.85 x10^6/uL (4.30-5.70) Hemoglobin 7.6 g/dL (13.0-17.5) Hematocrit 23.1 % (39.0-53.0) Mean Corpuscular Volume 81 fL (79-100) Mean Corpuscular Hemoglobin 27 pg (25-35) Mean Corpuscular Hemoglobin Concent 33 g/dL (31-37) Red Cell Distribution Width 15.7 % (11.5-14.5) Platelet Count 346 x10^3/uL (140-400) Neutrophils (%) (Auto) 85 % (31-73) Lymphocytes (%) (Auto) 8 % (24-48) Monocytes (%) (Auto) 5 % (0-9) Eosinophils (%) (Auto) 2 % (0-3) Basophils (%) (Auto) 1 % (0-3) Neutrophils # (Auto) 15.9 x10^3/uL (1.8-7.7) Lymphocytes # (Auto) 1.5 x10^3/uL (1.0-4.8) Monocytes # (Auto) 1.0 x10^3/uL (0.0-1.1) Eosinophils # (Auto) 0.3 x10^3/uL (0.0-0.7) Basophils # (Auto) 0.1 x10^3/uL (0.0-0.2) Sodium Level 134 mmol/L (136-145) Potassium Level 3.2 mmol/L (3.5-5.1) Chloride Level 97 mmol/L (98-107) Carbon Dioxide Level 29 mmol/L (21-32) Anion Gap 8 (6-14) Blood Urea Nitrogen 56 mg/dL (8-26) Creatinine 2.9 mg/dL (0.7-1.3) Estimated GFR (Cockcroft-Gault) 25.9 Glucose Level 172 mg/dL (70-99) Calcium Level 8.0 mg/dL (8.5-10.1) Phosphorus Level 5.3 mg/dL (2.6-4.7) Albumin 1.5 g/dL (3.4-5.0) Test 05/06/21 07:45 O2 Saturation 93 % (92-99) Arterial Blood pH 7.42 (7.35-7.45) Arterial Blood pCO2 at Patient Temp 40 mmHg (35-46) Arterial Blood pO2 at Patient Temp 67 mmHg (65-108) Arterial Blood HCO3 26 mmol/L (21-28) Arterial Blood Base Excess 1 mmol/L (-3-3) FiO2 40 Microbiology 05/04/21 Gram Stain Evaluation - Final, Resulted 05/04/21 Respiratory Culture - Preliminary, Resulted 05/04/21 Gram Stain - Final, Resulted 05/04/21 Aerobic Culture - Preliminary, Resulted 05/04/21 Blood Culture - Preliminary, Resulted NO GROWTH AFTER 1 DAY Medications Current Medications Potassium Chloride/Water 100 ml @ 100 mls/hr 1X ONCE IV Last administered on 05/06/21at 09:14; Start 05/06/21 at 08:30; Stop 05/06/21 at 09:29; Status DC Vitals/I & O Vital Sign - Last 24 Hours 05/05/21 05/05/21 05/05/21 05/05/21 11:02 11:35 11:56 12:05 Pulse 54 54 Resp 20 B/P (MAP) 171/73 (105) 171/73 Pulse Ox 100 100 O2 Delivery Ventilator Ventilator Mechanical Ventilator 05/05/21 05/05/21 05/05/21 05/05/21 12:08 12:59 13:09 13:20 Temp 97.6 97.6 Pulse 58 61 Resp 20 20 20 B/P (MAP) 181/69 (106) 168/79 (108) Pulse Ox 100 100 100 100 O2 Delivery Ventilator Ventilator Ventilator Ventilator 05/05/21 05/05/21 05/05/21 05/05/21 14:00 15:02 15:40 16:04 Pulse 53 51 Resp 20 20 B/P (MAP) 163/116 (132) 140/52 (81) Pulse Ox 100 100 100 O2 Delivery Ventilator Ventilator Ventilator Mechanical Ventilator 05/05/21 05/05/21 05/05/21 05/05/21 16:06 17:00 17:39 18:00 Temp 97.5 97.5 Pulse 51 55 51 56 Resp 20 20 20 B/P (MAP) 153/68 (96) 166/70 (102) 153/68 165/63 (97) Pulse Ox 100 100 100 O2 Delivery Ventilator Ventilator Ventilator 05/05/21 05/05/21 05/05/21 05/05/21 18:12 19:00 20:00 20:00 Temp 97.3 97.3 Pulse 50 48 Resp 20 20 B/P (MAP) 161/68 (99) 176/78 (110) Pulse Ox 100 100 100 O2 Delivery Ventilator Ventilator Mechanical Ventilator Ventilator 05/05/21 05/05/21 05/05/21 05/05/21 20:34 20:43 21:00 21:13 Pulse 52 Resp 20 24 B/P (MAP) 173/77 (109) Pulse Ox 100 100 100 100 O2 Delivery Ventilator Ventilator Ventilator Ventilator 05/05/21 05/05/21 05/05/21 05/06/21 22:00 23:00 23:59 00:00 Pulse 48 51 Resp 20 20 B/P (MAP) 165/63 (97) 165/63 (97) Pulse Ox 100 100 100 O2 Delivery Ventilator Ventilator Mechanical Ventilator Ventilator 05/06/21 05/06/21 05/06/21 05/06/21 00:40 02:18 04:00 04:23 Pulse 54 B/P (MAP) 172/80 Pulse Ox 100 100 O2 Delivery Ventilator Mechanical Ventilator Ventilator 05/06/21 05/06/21 05/06/21 05/06/21 04:53 05:00 07:01 07:31 Temp 98.4 98.4 Pulse 53 101 Resp 20 20 B/P (MAP) 137/84 (101) 137/84 Pulse Ox 100 98 100 O2 Delivery Ventilator Ventilator Ventilator 05/06/21 05/06/21 05/06/21 05/06/21 07:45 07:45 08:11 08:17 Pulse 120 66 Resp 20 20 B/P (MAP) 201/101 (134) 135/79 (97) Pulse Ox 100 100 98 O2 Delivery Ventilator Ventilator Ventilator Mechanical Ventilator 05/06/21 05/06/21 05/06/21 08:42 09:07 10:09 Pulse 66 71 51 Resp 20 20 B/P (MAP) 135/79 116/53 (74) 96/46 (63) Pulse Ox 99 99 O2 Delivery Ventilator Ventilator Intake and Output 05/05/21 05/05/21 05/06/21 15:00 23:00 07:00 Intake Total 520 ml 1701 ml 1508 ml Output Total 400 ml 410 ml 275 ml Balance 120 ml 1291 ml 1233 ml DESTINY CAMPBELL MD May 06, 2021 10:48
--- NOTE | 2021-05-06 11:10 | PDOC ---
[employer] PROGRESS NOTE Date of Service DOS: DATE: 05/06/21 TIME: 11:06 Chief Complaint Chief Complaint Respiratory failure requiring intubation [place] [address] Acute HI A. fib SIRS Hypertension with hypertensive urgency Hyperlipidemia CKD Diabetes History of bilateral subclavian stenosis History of marijuana use Severe protein calorie malnutrition History of Present Illness History of Present Illness 05/06/2021 Patient seen and examined in the [place] [address] ICU He remains mechanically ventilated AC/20/500/40 percent with 5 of PEEP Sedated with propofol Dex and fentanyl Chart reviewed Discussed with RN He remains critically ill 05/05/2020 Patient seen and examined in the [place] [address] ICU He remains on the vent AC/20/500/40 percent with 5 of PEEP Discussed with RN Chart reviewed Has SCDs in place Nieves to bedside drainage He remains critically ill 05/04/2021 Patient seen and examined in the [place] [address] ICU Still intubated Sedated with propofol and fentanyl AC/20/500/70 percent with 5 of PEEP On dialysis currently Has SCDs in Nieves to bedside drainage Discussed with RN Chart reviewed 05/03/2021 Patient seen and examined in the [place] [address] ICU He is still intubated AC/20/500/70 percent with 5 of PEEP Has SCDs in place Nieves to bedside drainage Sedated with fentanyl Versed and propofol Discussed are Chart reviewed Remains critically ill 05/02/2021 Patient seen and examined in the [place] [address] ICU He is sedated with propofol fentanyl and Versed Ventilator settings as follow AC/20/500/40 percent with 5 of PEEP Has Nieves to bedside drainage Chart reviewed Discussed with RN He remains critically ill 05/01/2021 Patient seen and examined in the [place] [address] ICU He is still intubated AC/20/500/40 percent with 5 of PEEP In A. fib Sedated with propofol fentanyl and Versed Has a heparin drip Missy with RN Chart reviewed He remains critically 04/30/2020 Patient seen and examined in the [place] [address] ICU He remains on the vent AC/20/500/40 5% with 5 PEEP Currently on dialysis Has OG feeds running Has a Nieves to bedside drainage Sedated with propofol and fentanyl Reviewed chart Discussed with RN He remains critically ill Mr Cunha is a 75 yo male w/ PMHx CAD, HTN, Hyperlipidemia, subclavian steel syndrome, subclavian stenosis s/p left subclavian sent placement complicated by retroperitoneal hematoma s/p evacuation in 08/2015), asthma, BART, CKD, DM2 who presented from home with home health care noted that he was short of breath and valverde with O2 saturations less than 89% as low as 84% not improved with nasal cannulated oxygen placed on CPAP and brought to ED for further care. He was just discharged from the hospital a week ago on April 19, 2021 for abdominal pain and was going for further cardiac testing with outpatient stress testing scheduled on May 28, 2021. Had echocardiogram April 17, 2021 with normal-appearing EF with moderate concentric LVH no significant valvular abnormalities. WBC 20, Hb 10.7, platelets 268, NA 140, K3.8, BUN 21, CR 2.9, glucose 162, albumin 3, troponin I 1.372, NT proBNP 33,318. EKG appears sinus tachycardia rate of 105 bpm with multiple PACs small ST depressions in lead II and V5. TWI in V6. Chest radiograph with diffuse interstitial and alveolar opacities and ET tube 5.8 cm above the leilani. Due to worsening respiratory status ED physician elected to intubate patient. Seen postintubation. Blood pressure little low after propofol bolus, but improved. Significant white frothy sputum per ET tube. Admitted to ICU for further care 04/29/2021: Afebrile, remains on vent at FiO2 45%, PEEP 5. WBC 20.4. Hemodialysis per nephrology. We will continue treatment with empiric antibiotics, remdesivir, and steroids. Continue heparin infusion and supportive care. Critical care time 30 minutes reviewing chart, review labs, review imaging, discussion with RN. 04/28/2021: Afebrile. FiO2 50%, PEEP 5. Nontunneled HD catheter placed yesterday due to worsening kidney function; eGFR 16 (CKD4). Chest x-ray showed unchanged interstitial opacities. Continue empiric antibiotics, steroids, and remdesivir. Continue heparin infusion, and continue to follow cardiology recommendations on new diagnosis of A. fib. Critical care time 30 minutes reviewing chart, review labs, review imaging, discussion with RN. 04/27/2021: Afebrile. On vent with FiO2 50%, PEEP 5. Troponin 2.8 yesterday; probable type II, demand ischemia. New onset A. fib. Continue heparin drip and as needed digoxin, per cardiology. Continue treatment with remdesivir, steroids, and prophylactic antibiotics. CBG 323 this morning; will add basal insulin. Critical care 30 minutes spent reviewing labs, reviewing imaging, reviewing charts, and discussion with RN. 04/26/2021: COVID-19 positive. Febrile overnight that was managed with cooling blankets. On vent with FiO2 50%, PEEP 5. Per cardiology, elevated troponins likely secondary to demand ischemia; continue heparin drip per cardiology. Maintain fluid balance and avoid nephrotoxins. Continue treatment with remdesivir, steroids, and prophylactic antibiotics. 30 minutes critical care time spent reviewing charts, reviewing labs, reviewing imaging, and discussion with RN. 04/25/2021: On vent FiO2 50, PEEP 5. Febrile, T-max 103.3. Patient was initiated on cooling blankets. Procalcitonin 0.13. Continue coverage for hospital-acquired pneumonia with cefepime. MRSA PCR pending. Critical care time 30 minutes spent reviewing charts, reviewing labs, review of imaging, discussion with RN. Vitals/I&O Vitals/I&O: Vital Signs Date Time Temp Pulse Resp B/P (MAP) Pulse Ox O2 Delivery O2 Flow Rate FiO2 05/06/21 11:02 50 20 135/51 (79) 100 Ventilator 05/06/21 07:01 98.4 98.4 I & O 05/05/21 05/05/21 05/06/21 15:00 23:00 07:00 Intake Total 520 ml 1701 ml 1508 ml Output Total 400 ml 410 ml 275 ml Balance 120 ml 1291 ml 1233 ml Physical Exam Physical Exam: GENERAL: Well-developed and well-nourished male, intubated, sedated. HEENT: Normocephalic, atraumatic, and anicteric. ETT and OGT present. NECK: Right IJ removed, right dialysis catheter present clean HEART: S1, S2. LUNGS: Decreased breath sounds. ABDOMEN: Soft, obese, bowel sounds present. GENITOURINARY: Nieves in place. EXTREMITIES: Edema present. DERMATOLOGIC: Warm, dry, no generalized rash. NEUROLOGIC: Intubated. PSYCHIATRIC: Unable to obtain. General: Other (Intubated sedated) Heart: Other (Tachycardic) Abdomen: Soft, Other (obese) Extremities: Other (trace LE edema ) Skin: No rashes, No breakdown, No significant lesion Labs Labs: Laboratory Tests Test 05/05/21 11:58 05/05/21 17:30 05/06/21 00:42 05/06/21 06:45 Glucose (Fingerstick) 222 mg/dL (70-99) 261 mg/dL (70-99) 199 mg/dL (70-99) White Blood Count 18.7 x10^3/uL (4.0-11.0) Red Blood Count 2.85 x10^6/uL (4.30-5.70) Hemoglobin 7.6 g/dL (13.0-17.5) Hematocrit 23.1 % (39.0-53.0) Mean Corpuscular Volume 81 fL (79-100) Mean Corpuscular Hemoglobin 27 pg (25-35) Mean Corpuscular Hemoglobin Concent 33 g/dL (31-37) Red Cell Distribution Width 15.7 % (11.5-14.5) Platelet Count 346 x10^3/uL (140-400) Neutrophils (%) (Auto) 85 % (31-73) Lymphocytes (%) (Auto) 8 % (24-48) Monocytes (%) (Auto) 5 % (0-9) Eosinophils (%) (Auto) 2 % (0-3) Basophils (%) (Auto) 1 % (0-3) Neutrophils # (Auto) 15.9 x10^3/uL (1.8-7.7) Lymphocytes # (Auto) 1.5 x10^3/uL (1.0-4.8) Monocytes # (Auto) 1.0 x10^3/uL (0.0-1.1) Eosinophils # (Auto) 0.3 x10^3/uL (0.0-0.7) Basophils # (Auto) 0.1 x10^3/uL (0.0-0.2) Sodium Level 134 mmol/L (136-145) Potassium Level 3.2 mmol/L (3.5-5.1) Chloride Level 97 mmol/L (98-107) Carbon Dioxide Level 29 mmol/L (21-32) Anion Gap 8 (6-14) Blood Urea Nitrogen 56 mg/dL (8-26) Creatinine 2.9 mg/dL (0.7-1.3) Estimated GFR (Cockcroft-Gault) 25.9 Glucose Level 172 mg/dL (70-99) Calcium Level 8.0 mg/dL (8.5-10.1) Phosphorus Level 5.3 mg/dL (2.6-4.7) Albumin 1.5 g/dL (3.4-5.0) Test 05/06/21 07:45 O2 Saturation 93 % (92-99) Arterial Blood pH 7.42 (7.35-7.45) Arterial Blood pCO2 at Patient Temp 40 mmHg (35-46) Arterial Blood pO2 at Patient Temp 67 mmHg (65-108) Arterial Blood HCO3 26 mmol/L (21-28) Arterial Blood Base Excess 1 mmol/L (-3-3) FiO2 40 Assessment and Plan Assessmemt and Plan Problems Medical Problems: (1) Elevated troponin Status: Acute (2) Person under investigation for COVID-19 Status: Acute (3) Pulmonary edema Status: Acute Respiratory failure requiring intubation COVID-19 Acute HI A. fib SIRS Hypertension with hypertensive urgency Hyperlipidemia CKD Diabetes History of bilateral subclavian stenosis History of marijuana use Severe protein calorie malnutrition Plan ICU monitoring Covid protocol (he has completed the remdesivir) Trend ABG and chest x-ray Subcu heparin As needed vecuronium P.o. amiodarone HD per nephrology Respiratory isolation Continue Nieves Vent weaning Home meds Trend labs Full code Appreciate subspecialist input Prognosis guarded as he remains critically ill CC time 33-minute Comment Review of Relevant I have reviewed the following items juanita (where applicable) has been applied. Medications: Current Medications Medications (Trade) Dose Ordered Sig/Jodie Route PRN Reason Start Time Stop Time Status Last Admin Dose Admin Potassium Chloride/Water 100 ml @ 100 mls/hr 1X ONCE IV 05/06/21 08:30 05/06/21 09:29 DC 05/06/21 09:14 Justifications for Admission General Conditions Altered mental status?: Yes Justification of admission: Patient has tachycardia (> 100 beats per minute) or hypotension (SBP < 90 mm Hg) leading to inadequate systemic perfusion as indicated by severe/persistent altered mental status. Other Justification ELENI RENTERIA III DO May 06, 2021 11:10
--- NOTE | 2021-05-06 13:09 | PDOC ---
PULMONARY PROGRESS NOTES DATE: 05/06/21 TIME: 13:04 Subjective Remain on vent support Currently on 40%, 5 of PEEP no overnight events Vitals Vital Signs Date Time Temp Pulse Resp B/P (MAP) Pulse Ox O2 Delivery O2 Flow Rate FiO2 05/06/21 13:01 98.5 50 20 169/66 (100) 100 Ventilator 98.5 Comments Visual exam done due to COVID-19. Intubated and sedated No paradoxical breathing. Labs Laboratory Tests Test 05/04/21 13:45 05/04/21 17:38 05/05/21 00:07 05/05/21 06:37 Urine Collection Type Unknown Urine Color Yellow Urine Clarity Clear Urine pH 5.5 (<5.0-8.0) Urine Specific [place] 1.015 (1.000-1.030) Urine Protein 100 mg/dL (NEG-TRACE) Urine Glucose (UA) Negative mg/dL (NEG) Urine Ketones (Stick) Negative mg/dL (NEG) Urine Blood Small (NEG) Urine Nitrite Negative (NEG) Urine Bilirubin Negative (NEG) Urine Urobilinogen Dipstick 1.0 mg/dL (0.2 mg/dL) Urine Leukocyte Esterase Negative (NEG) Urine RBC 0 /HPF (0-2) Urine WBC 0 /HPF (0-4) Urine Amorphous Sediment Present /HPF Urine Bacteria 0 /HPF (0-FEW) Urine Hyaline Casts Few /HPF Urine Granular Casts Few /HPF Urine Mucus Slight /LPF Glucose (Fingerstick) 233 mg/dL (70-99) 241 mg/dL (70-99) 235 mg/dL (70-99) Test 05/05/21 06:45 05/05/21 07:45 05/05/21 11:58 05/05/21 17:30 White Blood Count 24.6 x10^3/uL (4.0-11.0) Red Blood Count 2.92 x10^6/uL (4.30-5.70) Hemoglobin 7.9 g/dL (13.0-17.5) Hematocrit 23.8 % (39.0-53.0) Mean Corpuscular Volume 82 fL (79-100) Mean Corpuscular Hemoglobin 27 pg (25-35) Mean Corpuscular Hemoglobin Concent 33 g/dL (31-37) Red Cell Distribution Width 16.1 % (11.5-14.5) Platelet Count 335 x10^3/uL (140-400) Neutrophils (%) (Auto) 88 % (31-73) Lymphocytes (%) (Auto) 6 % (24-48) Monocytes (%) (Auto) 5 % (0-9) Eosinophils (%) (Auto) 1 % (0-3) Basophils (%) (Auto) 0 % (0-3) Neutrophils # (Auto) 21.7 x10^3/uL (1.8-7.7) Lymphocytes # (Auto) 1.5 x10^3/uL (1.0-4.8) Monocytes # (Auto) 1.1 x10^3/uL (0.0-1.1) Eosinophils # (Auto) 0.2 x10^3/uL (0.0-0.7) Basophils # (Auto) 0.1 x10^3/uL (0.0-0.2) Sodium Level 132 mmol/L (136-145) Potassium Level 3.7 mmol/L (3.5-5.1) Chloride Level 97 mmol/L (98-107) Carbon Dioxide Level 29 mmol/L (21-32) Anion Gap 6 (6-14) Blood Urea Nitrogen 46 mg/dL (8-26) Creatinine 2.5 mg/dL (0.7-1.3) Estimated GFR (Cockcroft-Gault) 30.7 Glucose Level 226 mg/dL (70-99) Calcium Level 8.2 mg/dL (8.5-10.1) Phosphorus Level 4.6 mg/dL (2.6-4.7) Albumin 1.7 g/dL (3.4-5.0) O2 Saturation 95 % (92-99) Arterial Blood pH 7.45 (7.35-7.45) Arterial Blood pCO2 at Patient Temp 39 mmHg (35-46) Arterial Blood pO2 at Patient Temp 78 mmHg (65-108) Arterial Blood HCO3 27 mmol/L (21-28) Arterial Blood Base Excess 2 mmol/L (-3-3) FiO2 40 Glucose (Fingerstick) 222 mg/dL (70-99) 261 mg/dL (70-99) Test 05/06/21 00:42 05/06/21 06:45 05/06/21 07:45 05/06/21 11:46 Glucose (Fingerstick) 199 mg/dL (70-99) 148 mg/dL (70-99) White Blood Count 18.7 x10^3/uL (4.0-11.0) Red Blood Count 2.85 x10^6/uL (4.30-5.70) Hemoglobin 7.6 g/dL (13.0-17.5) Hematocrit 23.1 % (39.0-53.0) Mean Corpuscular Volume 81 fL (79-100) Mean Corpuscular Hemoglobin 27 pg (25-35) Mean Corpuscular Hemoglobin Concent 33 g/dL (31-37) Red Cell Distribution Width 15.7 % (11.5-14.5) Platelet Count 346 x10^3/uL (140-400) Neutrophils (%) (Auto) 85 % (31-73) Lymphocytes (%) (Auto) 8 % (24-48) Monocytes (%) (Auto) 5 % (0-9) Eosinophils (%) (Auto) 2 % (0-3) Basophils (%) (Auto) 1 % (0-3) Neutrophils # (Auto) 15.9 x10^3/uL (1.8-7.7) Lymphocytes # (Auto) 1.5 x10^3/uL (1.0-4.8) Monocytes # (Auto) 1.0 x10^3/uL (0.0-1.1) Eosinophils # (Auto) 0.3 x10^3/uL (0.0-0.7) Basophils # (Auto) 0.1 x10^3/uL (0.0-0.2) Sodium Level 134 mmol/L (136-145) Potassium Level 3.2 mmol/L (3.5-5.1) Chloride Level 97 mmol/L (98-107) Carbon Dioxide Level 29 mmol/L (21-32) Anion Gap 8 (6-14) Blood Urea Nitrogen 56 mg/dL (8-26) Creatinine 2.9 mg/dL (0.7-1.3) Estimated GFR (Cockcroft-Gault) 25.9 Glucose Level 172 mg/dL (70-99) Calcium Level 8.0 mg/dL (8.5-10.1) Phosphorus Level 5.3 mg/dL (2.6-4.7) Albumin 1.5 g/dL (3.4-5.0) O2 Saturation 93 % (92-99) Arterial Blood pH 7.42 (7.35-7.45) Arterial Blood pCO2 at Patient Temp 40 mmHg (35-46) Arterial Blood pO2 at Patient Temp 67 mmHg (65-108) Arterial Blood HCO3 26 mmol/L (21-28) Arterial Blood Base Excess 1 mmol/L (-3-3) FiO2 40 Laboratory Tests Test 05/05/21 17:30 05/06/21 00:42 05/06/21 06:45 05/06/21 07:45 Glucose (Fingerstick) 261 mg/dL (70-99) 199 mg/dL (70-99) White Blood Count 18.7 x10^3/uL (4.0-11.0) Red Blood Count 2.85 x10^6/uL (4.30-5.70) Hemoglobin 7.6 g/dL (13.0-17.5) Hematocrit 23.1 % (39.0-53.0) Mean Corpuscular Volume 81 fL (79-100) Mean Corpuscular Hemoglobin 27 pg (25-35) Mean Corpuscular Hemoglobin Concent 33 g/dL (31-37) Red Cell Distribution Width 15.7 % (11.5-14.5) Platelet Count 346 x10^3/uL (140-400) Neutrophils (%) (Auto) 85 % (31-73) Lymphocytes (%) (Auto) 8 % (24-48) Monocytes (%) (Auto) 5 % (0-9) Eosinophils (%) (Auto) 2 % (0-3) Basophils (%) (Auto) 1 % (0-3) Neutrophils # (Auto) 15.9 x10^3/uL (1.8-7.7) Lymphocytes # (Auto) 1.5 x10^3/uL (1.0-4.8) Monocytes # (Auto) 1.0 x10^3/uL (0.0-1.1) Eosinophils # (Auto) 0.3 x10^3/uL (0.0-0.7) Basophils # (Auto) 0.1 x10^3/uL (0.0-0.2) Sodium Level 134 mmol/L (136-145) Potassium Level 3.2 mmol/L (3.5-5.1) Chloride Level 97 mmol/L (98-107) Carbon Dioxide Level 29 mmol/L (21-32) Anion Gap 8 (6-14) Blood Urea Nitrogen 56 mg/dL (8-26) Creatinine 2.9 mg/dL (0.7-1.3) Estimated GFR (Cockcroft-Gault) 25.9 Glucose Level 172 mg/dL (70-99) Calcium Level 8.0 mg/dL (8.5-10.1) Phosphorus Level 5.3 mg/dL (2.6-4.7) Albumin 1.5 g/dL (3.4-5.0) O2 Saturation 93 % (92-99) Arterial Blood pH 7.42 (7.35-7.45) Arterial Blood pCO2 at Patient Temp 40 mmHg (35-46) Arterial Blood pO2 at Patient Temp 67 mmHg (65-108) Arterial Blood HCO3 26 mmol/L (21-28) Arterial Blood Base Excess 1 mmol/L (-3-3) FiO2 40 Test 05/06/21 11:46 Glucose (Fingerstick) 148 mg/dL (70-99) Medications Active Scripts Medications Dose Route/Sig Max Daily Dose Days Date Category Glyburide 2.5 Mg Tablet 1 Tab PO DAILY 04/19/21 Rx Polyethylene Glycol 3350 17 Gm Powd.pack 17 Gm PO DAILY 04/19/21 Rx Dok (Docusate Sodium) 100 Mg Capsule 100 Mg PO PRN DAILY PRN 30 04/19/21 Rx Bisacodyl 5 Mg Tablet.dr 5 Mg PO PRN DAILY PRN 04/19/21 Rx Acetaminophen 325 Mg Tablet 650 Mg PO PRN Q4HRS PRN 04/19/21 Rx Aspirin Ec (Aspirin) 81 Mg Tablet.dr 81 Mg PO DAILYWBKFT 04/19/21 Rx Hydralazine Hcl 25 Mg Tablet 25 Mg PO QID 04/19/21 Rx Fenofibrate 54 Mg Tablet 1 Tab PO DAILY 04/17/21 Reported Potassium Chloride (Potassium Chloride) 20 Meq Tablet.er 20 Meq PO DAILY 04/17/21 Reported Coreg (Carvedilol) 12.5 Mg Tablet 37.5 Mg PO BIDWMEALS 04/17/21 Reported Rosuvastatin Calcium 40 Mg Tablet 40 Mg PO QHS 04/17/21 Reported Gabapentin (Gabapentin) 100 Mg Capsule 200 Mg PO BID 04/17/21 Reported Montelukast Sodium Tablet (Montelukast Sodium) 10 Mg Tablet 10 Mg PO HS 04/17/21 Reported Protonix (Pantoprazole Sodium) 20 Mg Tablet.dr 2 Tab PO DAILY 04/17/21 Reported Amlodipine Besylate 5 Mg Tablet 5 Mg PO DAILY 04/17/21 Reported Furosemide 40 Mg Tablet 1 Tab PO DAILY 04/17/21 Reported Proair Hfa Inhaler (Albuterol Sulfate) 8.5 Gm Hfa.aer.ad 2 Puff IH PRN Q4-6HRS PRN 21 04/16/21 Reported Advair 100-50 Diskus (Fluticasone/Salmeterol) 1 Each Disk.w.dev 1 Puff IH BID 04/16/21 Reported Comments Impression . IMPRESSION: 1. Acute hypoxic respiratory failure, multifactorial/COVID-19 viral pneumonia/ARDS 2. Abnormal CT chest with bilateral diffuse interstitial infiltrates without any significant pleural effusion 3. Leukocytosis, sepsis 4. Non-ST segment elevation [place] 5. History of tobacco use, suspect COPD, unknown FEV1 6. Chronic kidney disease. Worsening ILDA on CKD, on HD now 7. Metabolic acidosis multifactorial 8. Abnormal chest x-ray 9. Hypoglycemia, continue to monitor 10. Hypotension, suspect volume deficit,/possible sepsis 11. Fever Plan . Updated 05/06/21 Continue current vent support 40% and PEEP of 5 Follow ABG/CXR continue steroids Proceed with sedation vacation and PS trial Follow ID recs for ABX --Continue cefepime-- Follow cultures Follow nephrology recs-- HD Follow Cardiology recs continue TF for nutritional support DVT/GI PPX D/W RN and RT Pt. is DNR Updated 05/05 Appreciate ID input Continue cefepime and daptomycin ABG noted, discussed with RT Monitor blood sugars Hemodialysis per nephrology Anticoagulation Changed, follow-up on central line tip cultures GI prophylaxis Chest x-ray from 730 reviewed, no significant change 05/04, updated ABG noted PaO2 of 97 Chest x-ray noted no significant change bilateral infiltrate So far cultures negative Antibiotics per ID Monitor blood sugars Hemodialysis per nephrology Patient not ready for spontaneous trial ADELSO AVILA MD May 06, 2021 13:09
[2021-05-06] MEDS: DEXMEDETOMIDINE 400 MCG in IV NORMAL SALINE 100ML 96 ML IV PRN ×2 (13:13→20:22)
[2021-05-06] MEDS: LABETALOL 20 MG/4 ML DISP.SYRIN. IVP PRN ×2 (15:22→17:19)
[2021-05-06] MEDS: CEFEPIME HCL IV Push 1 GM VIAL. IVP SCH (16:13)
[2021-05-06] MEDS: MONTELUKAST SODIUM 10 MG TABLET. PO SCH (20:57)
[2021-05-06] MEDS: ATORVASTATIN CALCIUM 40 MG TABLET. PO SCH (20:58)
[2021-05-06] MEDS: INSULIN GLARGINE SYRINGE. SQ SCH (21:04)
[2021-05-07] VITALS (24 sets, daily range): BP systolic 106–181; BP diastolic 52–95
[2021-05-07] MEDS: INSULIN LISPRO 300 UNITS/3 ML VIAL. SQ SCH ×4 (01:03→16:15)
[2021-05-07] MEDS: PROPOFOL 100 ML IV PRN ×7 (01:05→22:33)
[2021-05-07] MEDS: DEXMEDETOMIDINE 400 MCG in IV NORMAL SALINE 100ML 96 ML IV PRN ×3 (04:05→18:29)
[2021-05-07] MEDS: METOPROLOL IV PUSH 5 MG/5 ML VIAL. IVP SCH ×5 (06:00→23:35)
[2021-05-07] MEDS: FUROSEMIDE 40 MG/4 ML VIAL. IVP SCH ×3 (06:20→21:56)
[2021-05-07] MEDS: HEPARIN for SUB-Q USE 5,000 UNIT/ML VIAL. SQ SCH ×3 (06:23→21:56)
[2021-05-07 06:58] LABS: ALBUMIN 1.5 g/dL (3.4-5.0); ALBUMIN/GLOBULIN RATIO 0.4 (1.0-1.7); CALCIUM 8.5 mg/dL (8.5-10.1); GFR 24.9; POTASSIUM 3.3 mmol/L (3.5-5.1); TOTAL BILIRUBIN 0.4 mg/dL (0.2-1.0); TOTAL PROTEIN 5.6 g/dL (6.4-8.2)
--- NOTE | 2021-05-07 07:34 | PDOC ---
Infectious Disease Note Subjective Subjective Patient intubated/sedated ROS ROS no n/v/d/ hypothermic Vital Sign Vital Signs Vital Signs Date Time Temp Pulse Resp B/P (MAP) Pulse Ox O2 Delivery O2 Flow Rate FiO2 05/07/21 07:23 47 20 160/57 (91) 100 Ventilator 05/07/21 00:00 98.4 98.4 Physical Exam PHYSICAL EXAM GENERAL: Well-developed and well-nourished male, intubated, sedated. HEENT: Normocephalic, atraumatic, and anicteric. ETT and OGT present. NECK: Right IJ removed, right dialysis catheter present clean HEART: S1, S2. LUNGS: Decreased breath sounds. ABDOMEN: Soft, obese, bowel sounds present. GENITOURINARY: Nieves in place. EXTREMITIES: Edema present. DERMATOLOGIC: Warm, dry, no generalized rash. NEUROLOGIC: Intubated. PSYCHIATRIC: Unable to obtain. Labs Lab Laboratory Tests Test 05/06/21 07:45 05/06/21 11:46 05/06/21 12:00 05/06/21 17:20 O2 Saturation 93 % (92-99) Arterial Blood pH 7.42 (7.35-7.45) Arterial Blood pCO2 at Patient Temp 40 mmHg (35-46) Arterial Blood pO2 at Patient Temp 67 mmHg (65-108) Arterial Blood HCO3 26 mmol/L (21-28) Arterial Blood Base Excess 1 mmol/L (-3-3) FiO2 40 Glucose (Fingerstick) 148 mg/dL (70-99) 219 mg/dL (70-99) Clostridium difficile Toxin (PCR) Negative (NEGATIVE) Test 05/07/21 00:53 05/07/21 06:25 05/07/21 06:32 Glucose (Fingerstick) 215 mg/dL (70-99) 199 mg/dL (70-99) Sodium Level 133 mmol/L (136-145) Potassium Level 3.3 mmol/L (3.5-5.1) Chloride Level 95 mmol/L (98-107) Carbon Dioxide Level 27 mmol/L (21-32) Anion Gap 11 (6-14) Blood Urea Nitrogen 62 mg/dL (8-26) Creatinine 3.0 mg/dL (0.7-1.3) Estimated GFR (Cockcroft-Gault) 24.9 BUN/Creatinine Ratio 21 (6-20) Glucose Level 197 mg/dL (70-99) Calcium Level 8.5 mg/dL (8.5-10.1) Total Bilirubin 0.4 mg/dL (0.2-1.0) Aspartate Amino Transf (AST/SGOT) 46 U/L (15-37) Alanine Aminotransferase (ALT/SGPT) 18 U/L (16-63) Alkaline Phosphatase 64 U/L (46-116) Total Protein 5.6 g/dL (6.4-8.2) Albumin 1.5 g/dL (3.4-5.0) Albumin/Globulin Ratio 0.4 (1.0-1.7) Micro Microbiology 05/04/21 Gram Stain Evaluation - Final, Resulted 05/04/21 Respiratory Culture - Preliminary, Resulted 05/04/21 Gram Stain - Final, Resulted 05/04/21 Aerobic Culture - Preliminary, Resulted 05/04/21 Blood Culture - Preliminary, Resulted NO GROWTH AFTER 2 DAYS Objective Assessment 1. Febrile illness could be healthcare-associated infection 2. Leukocytosis, on steroids. 3. COVID-19 pneumonia. 4. Acute hypoxic respiratory failure status post intubation. 5. Congestive heart failure, acute on chronic. 6. Acute kidney injury on chronic kidney disease on hemodialysis. 7. Diabetes mellitus 2. 8. Atrial fibrillation. 9. Anemia. 10. Protein-calorie malnutrition. 11. Hypertention Plan Plan of Care 1. Continue cefepime , 2. Follow-up labs and cultures 3. Change central line and send cath tip for cultures. 4. Check C. difficile PCR 5. Continue supportive care. 6. Critically ill. Discussed with nursing staff JAD RIVERO MD May 07, 2021 07:34
--- NOTE | 2021-05-07 08:11 | PDOC ---
PROGRESS NOTES Date of Service: DATE: 05/07/21 TIME: 08:10 Chief Complaint Chief Complaint Respiratory failure requiring intubation COVID- Acute RI A. fib SIRS Hypertension with hypertensive urgency Hyperlipidemia CKD Diabetes History of bilateral subclavian stenosis History of marijuana use Severe protein calorie malnutrition History of Present Illness History of Present Illness 05/07/2021 Patient seen and examined in the [place] [address] ICU He remains mechanically ventilated ILDA on CKD - ATN 2/2 sepsis/ Hypotension,UOP good,on IV Lasix ; requiring dialysis, AC/20/500/40 percent with 5 of PEEP Sedated with propofol Dex and fentanyl Chart reviewed Discussed with RN He remains critically ill intubated/sedated cont cardene gtt not able to tolerate PS trial 05/06/21 JONES FISHMAN MD,ADELSO DASILVA MD, MD ORDERED: BCULT Procedure Result --- --------- BLOOD CULTURE Preliminary NO GROWTH AFTER 2 DAYS 36 min cc time 05/06/2021 Patient seen and examined in the [facility] [address] ICU He remains mechanically ventilated AC/20/500/40 percent with 5 of PEEP Sedated with propofol Dex and fentanyl Chart reviewed Discussed with RN He remains critically ill 05/05/2020 Patient seen and examined in the [facility] [facility] [address] ICU He remains on the vent AC/20/500/40 percent with 5 of PEEP Discussed with RN Chart reviewed Has SCDs in place Nieves to bedside drainage He remains critically ill 05/04/2021 Patient seen and examined in the [facility] [facility] [address] ICU Still intubated Sedated with propofol and fentanyl AC/20/500/70 percent with 5 of PEEP On dialysis currently Has SCDs in Nieves to bedside drainage Discussed with RN Chart reviewed 05/03/2021 Patient seen and examined in the [facility] [facility] [address] ICU He is still intubated AC/20/500/70 percent with 5 of PEEP Has SCDs in place Nieves to bedside drainage Sedated with fentanyl Versed and propofol Discussed are Chart reviewed Remains critically ill 05/02/2021 Patient seen and examined in the [facility] [facility] [address] ICU He is sedated with propofol fentanyl and Versed Ventilator settings as follow AC/20/500/40 percent with 5 of PEEP Has Nieves to bedside drainage Chart reviewed Discussed with RN He remains critically ill 05/01/2021 Patient seen and examined in the [facility] [address] ICU He is still intubated AC/20/500/40 percent with 5 of PEEP In A. fib Sedated with propofol fentanyl and Versed Has a heparin drip Missy with RN Chart reviewed He remains critically 04/30/2020 Patient seen and examined in the [facility] [facility] [address] ICU He remains on the vent AC/20/500/40 5% with 5 PEEP Currently on dialysis Has OG feeds running Has a Nieves to bedside drainage Sedated with propofol and fentanyl Reviewed chart Discussed with RN He remains critically ill Mr uCnha is a 75 yo male w/ PMHx CAD, HTN, Hyperlipidemia, subclavian steel syndrome, subclavian stenosis s/p left subclavian sent placement complicated by retroperitoneal hematoma s/p evacuation in 08/2015), asthma, BART, CKD, DM2 who presented from home with home health care noted that he was short of breath and valverde with O2 saturations less than 89% as low as 84% not improved with nasal cannulated oxygen placed on CPAP and brought to ED for further care. He was just discharged from the hospital a week ago on April 19, 2021 for abdominal pain and was going for further cardiac testing with outpatient stress testing scheduled on May 28, 2021. Had echocardiogram April 17, 2021 with normal-appearing EF with moderate concentric LVH no significant valvular abnormalities. WBC 20, Hb 10.7, platelets 268, NA 140, K3.8, BUN 21, CR 2.9, glucose 162, albumin 3, troponin I 1.372, NT proBNP 33,318. EKG appears sinus tachycardia rate of 105 bpm with multiple PACs small ST depressions in lead II and V5. TWI in V6. Chest radiograph with diffuse interstitial and alveolar opacities and ET tube 5.8 cm above the leilani. Due to worsening respiratory status ED physician elected to intubate patient. Seen postintubation. Blood pressure little low after propofol bolus, but improved. Significant white frothy sputum per ET tube. Admitted to ICU for further care 04/29/2021: Afebrile, remains on vent at FiO2 45%, PEEP 5. WBC 20.4. Hemodialysis per nephrology. We will continue treatment with empiric antibiotics, remdesivir, and steroids. Continue heparin infusion and supportive care. Critical care time 30 minutes reviewing chart, review labs, review imaging, discussion with RN. 04/28/2021: Afebrile. FiO2 50%, PEEP 5. Nontunneled HD catheter placed yesterday due to worsening kidney function; eGFR 16 (CKD4). Chest x-ray showed unchanged interstitial opacities. Continue empiric antibiotics, steroids, and remdesivir. Continue heparin infusion, and continue to follow cardiology recommendations on new diagnosis of A. fib. Critical care time 30 minutes reviewing chart, review labs, review imaging, discussion with RN. 04/27/2021: Afebrile. On vent with FiO2 50%, PEEP 5. Troponin 2.8 yesterday; probable type II, demand ischemia. New onset A. fib. Continue heparin drip and as needed digoxin, per cardiology. Continue treatment with remdesivir, steroids, and prophylactic antibiotics. CBG 323 this morning; will add basal in sulin. Critical care 30 minutes spent reviewing labs, reviewing imaging, reviewing charts, and discussion with RN. 04/26/2021: COVID-19 positive. Febrile overnight that was managed with cooling blankets. On vent with FiO2 50%, PEEP 5. Per cardiology, elevated troponins likely secondary to demand ischemia; continue heparin drip per cardiology. Maintain fluid balance and avoid nephrotoxins. Continue treatment with remdesivir, steroids, and prophylactic antibiotics. 30 minutes critical care time spent reviewing charts, reviewing labs, reviewing imaging, and discussion with RN. 04/25/2021: On vent FiO2 50, PEEP 5. Febrile, T-max 103.3. Patient was initiated on cooling blankets. Procalcitonin 0.13. Continue coverage for hospital-acquired pneumonia with cefepime. MRSA PCR pending. Critical care time 30 minutes spent reviewing charts, reviewing labs, review of imaging, discussion with RN. Vitals Vitals Vital Signs Date Time Temp Pulse Resp B/P (MAP) Pulse Ox O2 Delivery O2 Flow Rate FiO2 05/07/21 08:06 Mechanical Ventilator 05/07/21 08:05 97.5 52 20 147/63 (91) 99 97.5 Physical Exam Physical Exam GENERAL: Well-developed and well-nourished male, intubated, sedated. HEENT: Normocephalic, atraumatic, and anicteric. ETT and OGT present. NECK: Right IJ removed, right dialysis catheter present clean HEART: S1, S2. LUNGS: Decreased breath sounds. ABDOMEN: Soft, obese, bowel sounds present. GENITOURINARY: Nieves in place. EXTREMITIES: Edema present. DERMATOLOGIC: Warm, dry, no generalized rash. NEUROLOGIC: Intubated. PSYCHIATRIC: Unable to obtain. General: Other (Intubated sedated) Heart: Other (Tachycardic) Abdomen: Soft, Other (obese) Extremities: No cyanosis, Other (trace LE edema ) Skin: No rashes, No breakdown, No significant lesion Labs LABS SPDESC: RACHID GARIBAY MD,LAURENCE FISHMAN,JONES HARDING,BRIAN AVILA,ADELSO POTTER ORDERED: RESP CULTURE COMMENTS: SPUTUM Procedure Result -- GRAM STAIN EVALUATION Final Final This specimen is of good quality and is acceptable for routine bacterial culture. Culture results to follow. NO ORGANISMS SEEN. SQUAMOUS EPI CELL:NONE SEEN PMN (WBCs):FEW RESPIRATORY CULTURE Final Final RARE Mixed upper respiratory guillermina on 05/06/21 at 0833 RARE Mixed upper respiratory guillermina on 05/07/21 at 0947 Unless otherwise specified, Testing Performed by: [address] [address] For Inquires, the Physician may contact the Microbiology department at [phone] It helps to think and talk about your own wishes for healthcare in case youre ever not able to tell your loved ones or healthcare team what your wishes are. If you became really sick tomorrow, would your loved ones or healthcare team know what your wishes were? Here are some examples of different sets of goals and health care directives for your conversations: My wish is to use all m edical therapies including resuscitation (such as CPR) and artificial life- sustaining treatments (such as machines and medicine) in an intensive care unit, to keep me alive if at all possible. My wish is to live as long as possible, but I dont want attempts to bring me back to life if my heart and breathing stop. I would like full medical care but without using resuscitation or artificial life-sustaining intensive treatments, if these are unlikely to make me live longer or restore me to a certain quality of life. I will accept treatments that try to fix medical problems, but if Im not getting better or going to have a certain quality of life, I would want to switch to focusing only on my comfort and letting my happen naturally. My wish is for healthcare to focus on my comfort and lessen suffering. I would like medical care that focuses only on my quality of life and that allows me to naturally. Consider: What does a good quality of life mean for me? For many people, it is the ability to live independently and tell their own story. I may define it differently. Under what circumstances would I not want to be kept alive by medical treatments, resuscitation, or intensive care? What kind of changes to my health or life might make me change my mind? If I clearly am facing the last chapter of my life, how do I want the story to end? Who do I want to speak for me if I cant speak for myself? Do they understand my preferences? Are they willing to assume the role of my Durable Power of Pss Delivery Professional? Can I change my Goals of Care Designation? Yes, your Goals of Care Designation can be changed at any time. It should be reviewed if: your health condition changes your circumstances change (such as new understanding) you are transferred or admit shayna to another healthcare setting dpoa review, to pt portal 19 min and question review Laboratory Tests Test 05/06/21 11:46 05/06/21 12:00 05/06/21 17:20 05/07/21 00:53 Glucose (Fingerstick) 148 mg/dL (70-99) 219 mg/dL (70-99) 215 mg/dL (70-99) Clostridium difficile Toxin (PCR) Negative (NEGATIVE) Test 05/07/21 06:25 05/07/21 06:32 Sodium Level 133 mmol/L (136-145) Potassium Level 3.3 mmol/L (3.5-5.1) Chloride Level 95 mmol/L (98-107) Carbon Dioxide Level 27 mmol/L (21-32) Anion Gap 11 (6-14) Blood Urea Nitrogen 62 mg/dL (8-26) Creatinine 3.0 mg/dL (0.7-1.3) Estimated GFR (Cockcroft-Gault) 24.9 BUN/Creatinine Ratio 21 (6-20) Glucose Level 197 mg/dL (70-99) Calcium Level 8.5 mg/dL (8.5-10.1) Total Bilirubin 0.4 mg/dL (0.2-1.0) Aspartate Amino Transf (AST/SGOT) 46 U/L (15-37) Alanine Aminotransferase (ALT/SGPT) 18 U/L (16-63) Alkaline Phosphatase 64 U/L (46-116) Total Protein 5.6 g/dL (6.4-8.2) Albumin 1.5 g/dL (3.4-5.0) Albumin/Globulin Ratio 0.4 (1.0-1.7) Glucose (Fingerstick) 199 mg/dL (70-99) Assessment and Plan Assessmemt and Plan Problems Medical Problems: (1) Elevated troponin Status: Acute (2) Person under investigation for COVID-19 Status: Acute (3) Pulmonary edema Status: Acute Comment Review of Relevant I have reviewed the following items juanita (where applicable) has been applied. Labs Laboratory Tests Test 05/05/21 11:58 05/05/21 17:30 05/06/21 00:42 05/06/21 06:45 Glucose (Fingerstick) 222 mg/dL (70-99) 261 mg/dL (70-99) 199 mg/dL (70-99) White Blood Count 18.7 x10^3/uL (4.0-11.0) Red Blood Count 2.85 x10^6/uL (4.30-5.70) Hemoglobin 7.6 g/dL (13.0-17.5) Hematocrit 23.1 % (39.0-53.0) Mean Corpuscular Volume 81 fL (79-100) Mean Corpuscular Hemoglobin 27 pg (25-35) Mean Corpuscular Hemoglobin Concent 33 g/dL (31-37) Red Cell Distribution Width 15.7 % (11.5-14.5) Platelet Count 346 x10^3/uL (140-400) Neutrophils (%) (Auto) 85 % (31-73) Lymphocytes (%) (Auto) 8 % (24-48) Monocytes (%) (Auto) 5 % (0-9) Eosinophils (%) (Auto) 2 % (0-3) Basophils (%) (Auto) 1 % (0-3) Neutrophils # (Auto) 15.9 x10^3/uL (1.8-7.7) Lymphocytes # (Auto) 1.5 x10^3/uL (1.0-4.8) Monocytes # (Auto) 1.0 x10^3/uL (0.0-1.1) Eosinophils # (Auto) 0.3 x10^3/uL (0.0-0.7) Basophils # (Auto) 0.1 x10^3/uL (0.0-0.2) Sodium Level 134 mmol/L (136-145) Potassium Level 3.2 mmol/L (3.5-5.1) Chloride Level 97 mmol/L (98-107) Carbon Dioxide Level 29 mmol/L (21-32) Anion Gap 8 (6-14) Blood Urea Nitrogen 56 mg/dL (8-26) Creatinine 2.9 mg/dL (0.7-1.3) Estimated GFR (Cockcroft-Gault) 25.9 Glucose Level 172 mg/dL (70-99) Calcium Level 8.0 mg/dL (8.5-10.1) Phosphorus Level 5.3 mg/dL (2.6-4.7) Albumin 1.5 g/dL (3.4-5.0) Test 05/06/21 07:45 05/06/21 11:46 05/06/21 12:00 05/06/21 17:20 O2 Saturation 93 % (92-99) Arterial Blood pH 7.42 (7.35-7.45) Arterial Blood pCO2 at Patient Temp 40 mmHg (35-46) Arterial Blood pO2 at Patient Temp 67 mmHg (65-108) Arterial Blood HCO3 26 mmol/L (21-28) Arterial Blood Base Excess 1 mmol/L (-3-3) FiO2 40 Glucose (Fingerstick) 148 mg/dL (70-99) 219 mg/dL (70-99) Clostridium difficile Toxin (PCR) Negative (NEGATIVE) Test 05/07/21 00:53 05/07/21 06:25 05/07/21 06:32 Glucose (Fingerstick) 215 mg/dL (70-99) 199 mg/dL (70-99) Sodium Level 133 mmol/L (136-145) Potassium Level 3.3 mmol/L (3.5-5.1) Chloride Level 95 mmol/L (98-107) Carbon Dioxide Level 27 mmol/L (21-32) Anion Gap 11 (6-14) Blood Urea Nitrogen 62 mg/dL (8-26) Creatinine 3.0 mg/dL (0.7-1.3) Estimated GFR (Cockcroft-Gault) 24.9 BUN/Creatinine Ratio 21 (6-20) Glucose Level 197 mg/dL (70-99) Calcium Level 8.5 mg/dL (8.5-10.1) Total Bilirubin 0.4 mg/dL (0.2-1.0) Aspartate Amino Transf (AST/SGOT) 46 U/L (15-37) Alanine Aminotransferase (ALT/SGPT) 18 U/L (16-63) Alkaline Phosphatase 64 U/L (46-116) Total Protein 5.6 g/dL (6.4-8.2) Albumin 1.5 g/dL (3.4-5.0) Albumin/Globulin Ratio 0.4 (1.0-1.7) Laboratory Tests Test 05/06/21 11:46 05/06/21 12:00 05/06/21 17:20 05/07/21 00:53 Glucose (Fingerstick) 148 mg/dL (70-99) 219 mg/dL (70-99) 215 mg/dL (70-99) Clostridium difficile Toxin (PCR) Negative (NEGATIVE) Test 05/07/21 06:25 05/07/21 06:32 Sodium Level 133 mmol/L (136-145) Potassium Level 3.3 mmol/L (3.5-5.1) Chloride Level 95 mmol/L (98-107) Carbon Dioxide Level 27 mmol/L (21-32) Anion Gap 11 (6-14) Blood Urea Nitrogen 62 mg/dL (8-26) Creatinine 3.0 mg/dL (0.7-1.3) Estimated GFR (Cockcroft-Gault) 24.9 BUN/Creatinine Ratio 21 (6-20) Glucose Level 197 mg/dL (70-99) Calcium Level 8.5 mg/dL (8.5-10.1) Total Bilirubin 0.4 mg/dL (0.2-1.0) Aspartate Amino Transf (AST/SGOT) 46 U/L (15-37) Alanine Aminotransferase (ALT/SGPT) 18 U/L (16-63) Alkaline Phosphatase 64 U/L (46-116) Total Protein 5.6 g/dL (6.4-8.2) Albumin 1.5 g/dL (3.4-5.0) Albumin/Globulin Ratio 0.4 (1.0-1.7) Glucose (Fingerstick) 199 mg/dL (70-99) Microbiology 05/04/21 Gram Stain Evaluation - Final, Resulted 05/04/21 Respiratory Culture - Preliminary, Resulted 05/04/21 Gram Stain - Final, Resulted 05/04/21 Aerobic Culture - Preliminary, Resulted 05/04/21 Blood Culture - Preliminary, Resulted NO GROWTH AFTER 2 DAYS Medications Current Medications Propofol 100 ml @ As Directed STK-MED ONCE IV ; Start 04/24/21 at 12:36; Stop 04/24/21 at 12:36; Status DC Etomidate (Amidate) 20 mg STK-MED ONCE IV ; Start 04/24/21 at 13:38; Stop 04/24/21 at 13:38; Status DC Succinylcholine Chloride (Anectine) 200 mg STK-MED ONCE .ROUTE ; Start 04/24/21 at 13:38; Stop 04/24/21 at 13:38; Status DC Fentanyl Citrate (Fentanyl 2ml Vial) 50 mcg PRN Q1HR PRN IV PAIN; Start 04/24/21 at 14:00; Stop 04/24/21 at 14:14; Status DC Acetaminophen (Tylenol) 650 mg PRN Q6HRS PRN PO Headaches, Temp > 101.5' Last administered on 04/25/21at 17:31; Start 04/24/21 at 14:00 Ondansetron HCl (Zofran) 4 mg PRN Q6HRS PRN IVP NAUSEA/VOMITING; Start 04/24/21 at 14:00; Status Cancel Sodium Chloride (Normal Saline Flush) 3 ml QSHIFT PRN IV AFTER MEDS AND BLOOD DRAWS; Start 04/24/21 at 14:00 Fentanyl Citrate (Fentanyl 2ml Vial) 25 mcg PRN Q1HR PRN IV SEVERE PAIN 7-10; Start 04/24/21 at 14:00; Stop 04/24/21 at 14:14; Status DC Bisacodyl (Dulcolax Supp) 10 mg PRN DAILY PRN [place] CONSTIPATION; Start 04/24/21 at 14:00 Fentanyl Citrate 30 ml @ 0 mls/hr CONT PRN IV SEE PROTOCOL; Start 04/24/21 at 14:00; Stop 04/24/21 at 14:12; Status DC Propofol 100 ml @ 0 mls/hr CONT PRN IV PER PROTOCOL Last administered on 04/24/21at 15:12; Start 04/24/21 at 14:00; Stop 04/24/21 at 15:19; Status DC Chlorhexidine Gluconate (Peridex) 15 ml BID MM Last administered on 04/24/21at 20:49; Start 04/24/21 at 21:00; Stop 04/25/21 at 11:19; Status DC Acetaminophen (Tylenol) 650 mg PRN Q6HRS PRN PO Headaches, Temp > 101.5'; Start 04/24/21 at 14:00; Status Cancel Ondansetron HCl (Zofran) 4 mg PRN Q6HRS PRN IVP NAUSEA/VOMITING; Start 04/24/21 at 14:00 Fentanyl Citrate (Fentanyl 2ml Vial) 25 mcg PRN Q1HR PRN IV SEVERE PAIN 7-10 Last administered on 04/24/21at 16:39; Start 04/24/21 at 14:00 Fentanyl Citrate 30 ml @ 0 mls/hr CONT PRN IV SEE PROTOCOL Last administered on 05/07/21at 02:54; Start 04/24/21 at 14:00 Aspirin (Ecotrin) 81 mg DAILYWBKFT PO Last administered on 05/02/21at 07:20; Start 04/25/21 at 08:00; Stop 05/03/21 at 09:56; Status DC Carvedilol (Coreg) 37.5 mg BIDWMEALS PO ; Start 04/24/21 at 17:00; Stop 04/24/21 at 16:17; Status DC Montelukast Sodium (Singulair) 10 mg HS PO Last administered on 05/06/21 20:57; Start 04/24/21 at 21:00 Atorvastatin Calcium (Lipitor) 80 mg QHS PO Last administered on 05/06/21at 20:58; Start 04/24/21 at 21:00 Heparin Sodium (Porcine) (Heparin Sodium) 5,000 unit Q8HRS SQ ; Start 04/24/21 at 22:00; Status Cancel Furosemide (Lasix) 40 mg 1X ONCE IVP Last administered on 04/24/21at 16:45; Start 04/24/21 at 15:15; Stop 04/24/21 at 15:19; Status DC Propofol 100 ml @ 0 mls/hr CONT PRN IV PER PROTOCOL Last administered on 05/07/21at 04:47; Start 04/24/21 at 15:30 Carvedilol (Coreg) 3.125 mg BIDWMEALS PO Last administered on 04/25/21at 09:23; Start 04/24/21 at 17:00; Stop 04/25/21 at 15:42; Status DC Cefepime HCl (Maxipime) 2 gm 1X ONCE IVP Last administered on 04/24/21at 18:27; Start 04/24/21 at 16:30; Stop 04/24/21 at 16:31; Status DC Insulin Human Lispro (HumaLOG) 0-9 UNITS Q6HRS SQ Last administered on 05/03/21at 12:24; Start 04/24/21 at 18:00; Stop 05/03/21 at 13:51; Status DC Dextrose (Dextrose 50%-Water Syringe) 12.5 gm PRN Q15MIN PRN IV SEE COMMENTS Last administered on 05/03/21at 04:59; Start 04/24/21 at 16:30; Stop 05/03/21 at 13:54; Status DC Heparin Sodium/ Dextrose 250 ml @ 0 mls/hr CONT PRN IV PER PROTOCOL Last administered on 05/01/21at 05:10; Start 04/24/21 at 16:45; Stop 05/01/21 at 12:32; Status DC Heparin Sodium (Porcine) (Heparin Sodium) 3,200 unit PRN Q6HRS PRN IV FOR UFH LEVEL LESS THAN 0.2 Last administered on 04/24/21at 23:32; Start 04/24/21 at 16:45; Stop 05/01/21 at 12:32; Status DC Cefepime HCl (Maxipime) 1 gm Q12HR IVP Last administered on 04/27/21at 08:09; Start 04/25/21 at 09:00; Stop 04/27/21 at 09:17; Status DC Furosemide (Lasix) 40 mg 1X ONCE IVP ; Start 04/25/21 at 11:30; Stop 04/25/21 at 11:31; Status DC Metoprolol Tartrate (Lopressor Vial) 5 mg 1X ONCE IVP Last administered on 04/25/21at 11:27; Start 04/25/21 at 11:30; Stop 04/25/21 at 11:31; Status DC Info (Anti-Coagulation Monitoring By Pharmacy) 1 each PRN DAILY PRN MC PER PROTOCOL Last administered on 04/26/21at 08:51; Start 04/25/21 at 13:00; Stop 05/02/21 at 07:36; Status DC Digoxin (Lanoxin) 500 mcg 1X ONCE IV Last administered on 04/25/21at 14:52; Start 04/25/21 at 14:45; Stop 04/25/21 at 14:46; Status DC Hydralazine HCl (Apresoline Inj) 10 mg PRN Q4HRS PRN IVP ELEVATED BP, SEE COMMENTS Last administered on 05/04/21at 17:47; Start 04/25/21 at 14:45 Metoprolol Tartrate (Lopressor Vial) 5 mg Q6HRS IVP Last administered on 05/06/21at 17:18; Start 04/25/21 at 18:00 Dexamethasone Sodium Phosphate (Decadron) 6 mg DAILY IVP Last administered on 05/06/21at 08:38; Start 04/25/21 at 17:00 Remdesivir 200 mg/ Sodium Chloride 210 ml @ 210 mls/hr 1X ONCE IV Last administered on 04/25/21at 17:09; Start 04/25/21 at 17:30; Stop 04/25/21 at 18:29; Status DC Remdesivir 100 mg/ Sodium Chloride 230 ml @ 460 mls/hr Q24H IV Last administered on 04/29/21at 13:51; Start 04/26/21 at 17:30; Stop 04/29/21 at 17:59; Status DC Midazolam HCl 100 ml @ 0 mls/hr CONT PRN IV SEE PROTOCOL Last administered on 05/02/21at 19:58; Start 04/26/21 at 07:00 Pantoprazole Sodium (PROTONIX VIAL for IV PUSH) 40 mg DAILYAC IVP Last administered on 05/06/21at 07:34; Start 04/26/21 at 09:30 Norepinephrine Bitartrate 8 mg/ Dextrose 258 ml @ 25.349 mls/ hr CONT PRN IV PER PROTOCOL Last administered on 04/26/21at 17:53; Start 04/26/21 at 12:15; Stop 05/02/21 at 20:53; Status DC Digoxin (Lanoxin) 250 mcg 1X ONCE IV Last administered on 04/26/21at 15:02; Start 04/26/21 at 13:00; Stop 04/26/21 at 13:05; Status DC Amiodarone HCl 150 mg/Dextrose 103 ml @ 618 mls/hr 1X ONCE IV Last administered on 04/27/21at 02:30; Start 04/27/21 at 02:30; Stop 04/27/21 at 02:39; Status DC Amiodarone HCl 450 mg/Dextrose 259 ml @ 33 mls/hr CONT PRN IV SEE I/O RECORD; Start 04/27/21 at 02:30; Stop 04/30/21 at 07:56; Status DC Insulin Glargine (Lantus Syringe) 25 unit QHS SQ Last administered on 05/02/21at 21:23; Start 04/27/21 at 21:00; Stop 05/03/21 at 13:45; Status DC Cefepime HCl (Maxipime) 1 gm Q24H IVP Last administered on 05/03/21at 10:02; Start 04/28/21 at 09:30; Stop 05/03/21 at 13:19; Status DC Sodium Bicarbonate (Sodium Bicarb Adult 8.4% Syr) 50 meq 1X ONCE IV Last administered on 04/27/21at 09:50; Start 04/27/21 at 09:45; Stop 04/27/21 at 09:46; Status DC Lidocaine HCl (Buffered Lidocaine 1%) 3 ml STK-MED ONCE .ROUTE ; Start 04/27/21 at 10:57; Stop 04/27/21 at 10:58; Status DC Amiodarone HCl (Cordarone) 200 mg DAILY PO ; Start 04/27/21 at 12:00; Stop 04/27/21 at 12:29; Status DC Lidocaine HCl (Buffered Lidocaine 1%) 3 ml 1X ONCE INJ Last administered on 04/27/21at 11:15; Start 04/27/21 at 11:15; Stop 04/27/21 at 11:16; Status DC Amiodarone HCl (Cordarone) 200 mg DAILY PO Last administered on 05/06/21at 08:42; Start 04/28/21 at 09:00 Sodium Chloride 1,000 ml @ 1,000 mls/hr Q1H PRN IV hypotension; Start 04/28/21 at 11:00; Stop 04/28/21 at 16:59; Status DC Albumin Human 200 ml @ 200 mls/hr 1X PRN PRN IV Hypotension; Start 04/28/21 at 11:00; Stop 04/28/21 at 16:59; Status DC Sodium Chloride (Normal Saline Flush) 10 ml 1X PRN PRN IV AP catheter pack; Start 04/28/21 at 11:00; Stop 04/29/21 at 10:59; Status DC Sodium Chloride (Normal Saline Flush) 10 ml 1X PRN PRN IV EYELET MAKER catheter pack; Start 04/28/21 at 11:00; Stop 04/29/21 at 10:59; Status DC Sodium Chloride 1,000 ml @ 400 mls/hr Q2H30M PRN IV PATENCY; Start 04/28/21 at 11:00; Stop 04/28/21 at 22:59; Status DC Info (PHARMACY MONITORING -- do not chart) 1 each PRN DAILY PRN MC SEE COMMENTS; Start 04/28/21 at 11:00; Status UNV Info (PHARMACY MONITORING -- do not chart) 1 each PRN DAILY PRN MC SEE COMMENTS; Start 04/28/21 at 11:00; Stop 04/30/21 at 22:39; Status DC Magnesium Sulfate 50 ml @ 25 mls/hr PRN DAILY PRN IV for Mag < 1.7 on am labs; Start 04/29/21 at 10:45 Vecuronium [place] (Norcuron Bolus) 6 mg PRN Q6HRS PRN IV VENTILATOR COMPLIANCE; Start 04/30/21 at 11:15 Info (PHARMACY MONITORING -- do not chart) 1 each PRN DAILY PRN MC SEE COMMENTS; Start 04/30/21 at 12:30; Status Cancel Labetalol HCl (Normodyne Iv Push) 20 mg PRN Q2HR PRN IVP HYPERTENSION Last a dministered on 05/06/21at 17:19; Start 05/01/21 at 12:30 Heparin Sodium (Porcine) (Heparin Sodium) 5,000 unit Q8HRS SQ Last administered on 05/07/21at 06:23; Start 05/01/21 at 14:00 Furosemide (Lasix) 80 mg 1X ONCE IVP Last administered on 05/02/21at 10:45; Start 05/02/21 at 10:45; Stop 05/02/21 at 10:46; Status DC Furosemide (Lasix) 40 mg Q8HRS IVP Last administered on 05/07/21at 06:20; Start 05/02/21 at 14:00 Sodium Chloride 1,000 ml @ 1,000 mls/hr Q1H PRN IV hypotension; Start 05/02/21 at 11:30; Stop 05/02/21 at 17:29; Status DC Albumin Human 200 ml @ 200 mls/hr 1X PRN PRN IV Hypotension; Start 05/02/21 at 11:30; Stop 05/02/21 at 17:29; Status DC Sodium Chloride (Normal Saline Flush) 10 ml 1X PRN PRN IV AP catheter pack; Start 05/02/21 at 11:30; Stop 05/02/21 at 18:00; Status DC Sodium Chloride (Normal Saline Flush) 10 ml 1X PRN PRN IV EYELET MAKER catheter pack; Start 05/02/21 at 11:30; Stop 05/02/21 at 18:00; Status DC Sodium Chloride 1,000 ml @ 400 mls/hr Q2H30M PRN IV PATENCY; Start 05/02/21 at 11:30; Stop 05/02/21 at 23:29; Status DC Info (PHARMACY MONITORING -- do not chart) 1 each PRN DAILY PRN MC SEE COMMENTS; Start 05/02/21 at 11:30; Status UNV Info (PHARMACY MONITORING -- do not chart) 1 each PRN DAILY PRN MC SEE COMMENTS; Start 05/02/21 at 11:30; Status UNV Norepinephrine Bitartrate 8 mg/ Dextrose 258 ml @ 25.852 mls/ hr CONT PRN IV PER PROTOCOL Last administered on 05/02/21at 21:22; Start 05/02/21 at 21:00 Dextrose 1,000 ml @ 50 mls/hr Q20H IV Last administered on 05/03/21at 05:15; Start 05/03/21 at 05:15; Stop 05/03/21 at 13:53; Status DC Aspirin (Aspirin Chewable) 81 mg DAILYWBKFT PO Last administered on 05/06/21at 08:38; Start 05/03/21 at 10:00 Insulin Glargine (Lantus Syringe) 10 unit QHS SQ Last administered on 05/06/21at 21:04; Start 05/03/21 at 21:00 Insulin Human Lispro (HumaLOG) 0-5 UNITS Q6HRS SQ Last administered on 05/07/21at 06:44; Start 05/03/21 at 18:00 Dextrose (Dextrose 50%-Water Syringe) 12.5 gm PRN Q15MIN PRN IV SEE COMMENTS; Start 05/03/21 at 14:00 Sodium Chloride 1,000 ml @ 1,000 mls/hr Q1H PRN IV hypotension; Start 05/04/21 at 07:30; Stop 05/04/21 at 13:29; Status DC Albumin Human 200 ml @ 200 mls/hr 1X PRN PRN IV Hypotension Last administered on 05/04/21at 10:46; Start 05/04/21 at 07:30; Stop 05/04/21 at 13:29; Status DC Sodium Chloride (Normal Saline Flush) 10 ml 1X PRN PRN IV AP catheter pack; Start 05/04/21 at 07:30; Stop 05/05/21 at 07:29; Status DC Sodium Chloride (Normal Saline Flush) 10 ml 1X PRN PRN IV EYELET MAKER catheter pack; Start 05/04/21 at 07:30; Stop 05/05/21 at 07:29; Status DC Sodium Chloride 1,000 ml @ 400 mls/hr Q2H30M PRN IV PATENCY; Start 05/04/21 at 07:30; Stop 05/04/21 at 19:29; Status DC Info (PHARMACY MONITORING -- do not chart) 1 each PRN DAILY PRN MC SEE COMMENTS; Start 05/04/21 at 07:30; Status UNV Info (PHARMACY MONITORING -- do not chart) 1 each PRN DAILY PRN MC SEE COMMENTS; Start 05/04/21 at 07:30 Dexmedetomidine HCl 400 mcg/ Sodium Chloride 100 ml @ 0 mls/hr CONT PRN IV PER PROTOCOL Last administered on 05/07/21at 04:05; Start 05/04/21 at 10:30 Cefepime HCl (Maxipime) 1 gm Q24H IVP Last administered on 05/06/21at 16:13; Start 05/04/21 at 16:00 Daptomycin 600 mg/ Sodium Chloride 50 ml @ 100 mls/hr Q48H IV Last administered on 05/04/21at 15:24; Start 05/04/21 at 15:00; Stop 05/06/21 at 08:07; Status DC Potassium Chloride/Water 100 ml @ 100 mls/hr 1X ONCE IV Last administered on 05/06/21at 09:14; Start 05/06/21 at 08:30; Stop 05/06/21 at 09:29; Status DC Nicardipine HCl 50 mg/Sodium Chloride 250 ml @ 25 mls/hr CONT PRN IV SEE I/O RECORD Last administered on 05/07/21at 06:56; Start 05/06/21 at 18:45 Active Scripts Active Glyburide 2.5 Mg Tablet 1 Tab PO DAILY 14 Days Polyethylene Glycol 3350 17 Gm Powd.pack 17 Gm PO DAILY 14 Days Dok (Docusate Sodium) 100 Mg Capsule 100 Mg PO PRN DAILY PRN 30 Days Bisacodyl 5 Mg Tablet.dr 5 Mg PO PRN DAILY PRN 14 Days Acetaminophen 325 Mg Tablet 650 Mg PO PRN Q4HRS PRN 14 Days Aspirin Ec (Aspirin) 81 Mg Tablet.dr 81 Mg PO DAILYWBKFT 30 Days Hydralazine Hcl 25 Mg Tablet 25 Mg PO QID 30 Days Reported Fenofibrate 54 Mg Tablet 1 Tab PO DAILY Potassium Chloride (Potassium Chloride) 20 Meq Tablet.er 20 Meq PO DAILY Coreg (Carvedilol) 12.5 Mg Tablet 37.5 Mg PO BIDWMEALS Rosuvastatin Calcium 40 Mg Tablet 40 Mg PO QHS Gabapentin (Gabapentin) 100 Mg Capsule 200 Mg PO BID Montelukast Sodium Tablet (Montelukast Sodium) 10 Mg Tablet 10 Mg PO HS Protonix (Pantoprazole Sodium) 20 Mg Tablet.dr 2 Tab PO DAILY Amlodipine Besylate 5 Mg Tablet 5 Mg PO DAILY Furosemide 40 Mg Tablet 1 Tab PO DAILY Proair Hfa Inhaler (Albuterol Sulfate) 8.5 Gm Hfa.aer.ad 2 Puff IH PRN Q4-6HRS PRN 21 Days Advair 100-50 Diskus (Fluticasone/Salmeterol) 1 Each Disk.w.dev 1 Puff IH BID Vitals/I & O Vital Sign - Last 24 Hours 05/06/21 05/06/21 05/06/21 05/06/21 08:17 08:42 09:07 10:09 Pulse 66 71 51 Resp 20 20 B/P (MAP) 135/79 116/53 (74) 96/46 (63) Pulse Ox 99 99 O2 Delivery Mechanical Ventilator Ventilator Ventilator 05/06/21 05/06/21 05/06/21 05/06/21 11:02 11:30 11:42 12:18 Pulse 50 50 Resp 20 B/P (MAP) 135/51 (79) 184/76 Pulse Ox 100 100 O2 Delivery Ventilator Ventilator Mechanical Ventilator 05/06/21 05/06/21 05/06/21 05/06/21 12:21 12:51 13:01 14:00 Temp 98.5 98.5 Pulse 50 54 Resp 20 20 20 20 B/P (MAP) 169/66 (100) 185/85 (118) Pulse Ox 100 100 100 100 O2 Delivery Ventilator Ventilator Ventilator Ventilator 05/06/21 05/06/21 05/06/21 05/06/21 14:05 15:19 15:22 15:30 Pulse 54 54 Resp 20 B/P (MAP) 190/87 (121) 190/87 Pulse Ox 100 100 100 O2 Delivery Ventilator Ventilator Ventilator 05/06/21 05/06/21 05/06/21 05/06/21 16:16 16:17 17:17 17:18 Temp 98.3 98.3 Pulse 59 54 54 Resp 20 20 B/P (MAP) 193/83 (119) 197/88 (124) 197/88 Pulse Ox 100 100 O2 Delivery Ventilator Mechanical Ventilator Ventilator 05/06/21 05/06/21 05/06/21 05/06/21 17:19 17:23 18:14 19:00 Pulse 54 54 54 Resp 20 20 B/P (MAP) 197/88 166/90 (115) 198/84 (122) Pulse Ox 100 100 100 O2 Delivery Ventilator Ventilator Ventilator 05/06/21 05/06/21 05/06/21 05/06/21 20:00 20:00 20:05 21:00 Temp 98.3 98.3 Pulse 52 52 Resp 20 20 B/P (MAP) 206/90 (128) 169/71 (103) Pulse Ox 100 100 100 O2 Delivery Ventilator Mechanical Ventilator Ventilator Ventilator 05/06/21 05/06/21 05/07/21 05/07/21 22:00 23:00 00:00 00:00 Temp 98.4 98.4 Pulse 50 48 48 46 Resp 16 17 16 B/P (MAP) 140/62 (88) 140/64 (89) 138/58 (84) Pulse Ox 100 100 100 O2 Delivery Ventilator Ventilator Ventilator 05/07/21 05/07/21 05/07/21 05/07/21 00:00 00:15 01:00 02:00 Pulse 56 48 Resp 17 16 B/P (MAP) 144/59 (87) 149/69 (95) Pulse Ox 100 100 100 O2 Delivery Mechanical Ventilator Ventilator Ventilator Ventilator 05/07/21 05/07/21 05/07/21 05/07/21 02:15 02:54 03:00 04:00 Temp 97.5 97.5 Pulse 47 50 Resp 20 17 17 B/P (MAP) 147/72 (97) 145/60 (88) Pulse Ox 98 100 99 100 O2 Delivery Ventilator Ventilator Ventilator Ventilator 05/07/21 05/07/21 05/07/21 05/07/21 04:00 05:00 05:10 06:00 Pulse 46 58 Resp 16 20 B/P (MAP) 148/70 (96) 140/69 (92) Pulse Ox 100 100 100 O2 Delivery Mechanical Ventilator Ventilator Ventilator Ventilator 05/07/21 05/07/21 05/07/21 05/07/21 06:00 07:23 07:45 08:05 Temp 97.5 97.5 Pulse 47 47 52 Resp 20 20 B/P (MAP) 160/57 (91) 147/63 (91) Pulse Ox 100 99 99 O2 Delivery Ventilator Ventilator Ventilator 05/07/21 08:06 O2 Delivery Mechanical Ventilator Intake and Output 05/06/21 05/06/21 05/07/21 15:00 23:00 07:00 Intake Total 520 ml 520 ml 2381 ml Output Total 800 ml 905 ml 1150 ml Balance -280 ml -385 ml 1231 ml Justicifation of Admission Dx: Justifications for Admission: Justification of Admission Dx: Yes Aspiration Pneumonia: Hemodynamic Instability ALBA SWAIN MD May 07, 2021 08:11
--- NOTE | 2021-05-07 08:36 | RAD ---
EXAM: XR CHEST 1V 05/07/2021 5:08 AM CLINICAL INDICATION: Respiratory failure COMPARISON: Chest radiograph 05/04/2021 TECHNIQUE: AP semierect view of the chest FINDINGS: The endotracheal tube terminates 4 cm above the leilani. A nasogastric tube terminates belo w the diaphragm out of view. Right IJ catheter tip projects over the superior cavoatrial junction. Th e cardiac silhouette is stable. Pulmonary vasculature is indistinct. There is no small right pleural effusion and right basilar opacities. Unchanged small left pleural effusion and left basilar opacitie s. No pneumothorax. IMPRESSION: Mild pulmonary edema with new small right pleural effusion and basilar opacities. Unchang ed small left pleural effusion and basilar opacities. Electronically signed by: Grecia Mcallister MD (05/07/2021 8:34 AM) [id number]
[2021-05-07] MEDS ORDERED: ALBUMIN HUMAN 25% 200 ML IV PRN (08:45)
[2021-05-07] MEDS ORDERED: DIALYSIS PATIENT. MC PRN ×2 (08:45)
[2021-05-07] MEDS ORDERED: IV NORMAL SALINE 1000ML BAG 1,000 ML IV PRN ×2 (08:45)
[2021-05-07 09:07] LABS: BASE EXCESS ABG 1 mmol/L (-3-3); HCO3 ABG 24 mmol/L (21-28); PCO2 ABG 34 mmHg (35-46); PO2 ABG 69 mmHg (65-108); SAT O2 ABG 93 % (92-99)
[2021-05-07 09:08] LABS: FIO2 ABG 40
--- NOTE | 2021-05-07 09:18 | PDOC ---
DATE OF SERVICE DATE: 05/07/21 TIME: 09:09 SUBJECTIVE ROS Remains intubated OBJECTIVE Vital Signs Vital Signs Date Time Temp Pulse Resp B/P (MAP) Pulse Ox O2 Delivery O2 Flow Rate FiO2 05/07/21 09:07 52 20 148/58 (88) 99 Ventilator 05/07/21 08:05 97.5 97.5 I & 0 Intake and Output 05/07/21 07:00 Intake Total 3421 ml Output Total 2855 ml Balance 566 ml IV Total 819 ml Tube Feeding 1848 ml Other 754 ml Output Urine Total 2855 ml PHYSICAL EXAM Physical Exam GENERAL: intubated, sedated. HEENT: anicteric. ETT and OGT present. NECK: , right dialysis catheter+, HEART: S1, S2. LUNGS: Decreased breath sounds. ABDOMEN: Soft,bowel sounds present. GENITOURINARY: Nieves in place. EXTREMITIES: Edema present. DERMATOLOGIC: Warm, dry, no generalized rash. NEUROLOGIC: Intubated. PSYCHIATRIC: Unable to obtain. 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 Recent CT Atrophic appearance of the right kidney. COVID-19 positive - Abnormal CT chest with bilateral diffuse interstitial infiltrates without any significant pleural effusion. Acute respiratory failure with Hypoxia Intubated ; stable Atrial Fib- per Cardiology Cholelithiasis Anemia . BETTY held 2/2 Hypercoagulable state Severe HypoAlbuminemia DM II Hypotension - Low BP, at presentation , resolved; Low again this morning, not requiring pressor support HTN- On antihypertensives @ home NSTEMI - possibly demand ischemia SIRS - likely sepsis from HCAP H/o bilateral Subclavian stenosis s/p left subclavian sent placement complicated by retroperitoneal hematoma s/p evacuation in 08/2015. Hx of Marijuana use COMMENT/RELEVANT DATA Meds Current Medications Medications (Trade) Dose Ordered Sig/Jodie Start Time Stop Time Status Last Admin Dose Admin Acetaminophen (Tylenol) 650 mg PRN Q6HRS PRN 04/24/21 14:00 Cancel Albumin Human 200 ml @ 200 mls/hr 1X PRN PRN 05/07/21 08:45 05/07/21 14:44 Amiodarone HCl (Cordarone) 200 mg DAILY 04/28/21 09:00 05/06/21 08:42 200 MG Amiodarone HCl 150 mg/Dextrose 103 ml @ 618 mls/hr 1X ONCE 04/27/21 02:30 04/27/21 02:39 DC 04/27/21 02:30 618 MLS/HR Amiodarone HCl 450 mg/Dextrose 259 ml @ 33 mls/hr CONT PRN 04/27/21 02:30 04/30/21 07:56 DC Aspirin (Aspirin Chewable) 81 mg DAILYWBKFT 05/03/21 10:00 05/06/21 08:38 81 MG Aspirin (Ecotrin) 81 mg DAILYWBKFT 04/25/21 08:00 05/03/21 09:56 DC 05/02/21 07:20 81 MG Atorvastatin Calcium (Lipitor) 80 mg QHS 04/24/21 21:00 05/06/21 20:58 80 MG Bisacodyl (Dulcolax Supp) 10 mg PRN DAILY PRN 04/24/21 14:00 Carvedilol (Coreg) 3.125 mg BIDWMEALS 04/24/21 17:00 04/25/21 15:42 DC 04/25/21 09:23 3.125 MG Cefepime HCl (Maxipime) 1 gm Q24H 05/04/21 16:00 05/06/21 16:13 1 GM Chlorhexidine Gluconate (Peridex) 15 ml BID 04/24/21 21:00 04/25/21 11:19 DC 04/24/21 20:49 15 ML Daptomycin 600 mg/ Sodium Chloride 50 ml @ 100 mls/hr Q48H 05/04/21 15:00 05/06/21 08:07 DC 05/04/21 15:24 100 MLS/HR Dexamethasone Sodium Phosphate (Decadron) 6 mg DAILY 04/25/21 17:00 05/06/21 08:38 6 MG Dexmedetomidine HCl 400 mcg/ Sodium Chloride 100 ml @ 0 mls/hr CONT PRN 05/04/21 10:30 05/07/21 04:05 13.1 MLS/HR Dextrose (Dextrose 50%-Water Syringe) 12.5 gm PRN Q15MIN PRN 05/03/21 14:00 Digoxin (Lanoxin) 250 mcg 1X ONCE 04/26/21 13:00 04/26/21 13:05 DC 04/26/21 15:02 250 MCG Etomidate (Amidate) 20 mg STK-MED ONCE 04/24/21 13:38 04/24/21 13:38 DC Fentanyl Citrate 30 ml @ 0 mls/hr CONT PRN 04/24/21 14:00 05/07/21 02:54 3.75 MLS/HR Fentanyl Citrate (Fentanyl 2ml Vial) 25 mcg PRN Q1HR PRN 04/24/21 14:00 04/24/21 16:39 25 MCG Furosemide (Lasix) 40 mg Q8HRS 05/02/21 14:00 05/07/21 06:20 40 MG Heparin Sodium (Porcine) (Heparin Sodium) 5,000 unit Q8HRS 05/01/21 14:00 05/07/21 06:23 5,000 UNIT Heparin Sodium/ Dextrose 250 ml @ 0 mls/hr CONT PRN 04/24/21 16:45 05/01/21 12:32 DC 05/01/21 05:10 10 MLS/HR Hydralazine HCl (Apresoline Inj) 10 mg PRN Q4HRS PRN 04/25/21 14:45 05/04/21 17:47 10 MG Info (Anti-Coagulation Monitoring By Pharmacy) 1 each PRN DAILY PRN 04/25/21 13:00 05/02/21 07:36 DC 04/26/21 08:51 1 EACH Info (PHARMACY MONITORING -- do not chart) 1 each PRN DAILY PRN 05/07/21 08:45 Insulin Glargine (Lantus Syringe) 10 unit QHS 05/03/21 21:00 05/06/21 21:04 10 UNIT Insulin Human Lispro (HumaLOG) 0-5 UNITS Q6HRS 05/03/21 18:00 05/07/21 06:44 2 UNITS Labetalol HCl (Normodyne Iv Push) 20 mg PRN Q2HR PRN 05/01/21 12:30 05/06/21 17:19 20 MG Lidocaine HCl (Buffered Lidocaine 1%) 3 ml 1X ONCE 04/27/21 11:15 04/27/21 11:16 DC 04/27/21 11:15 3 ML Magnesium Sulfate 50 ml @ 25 mls/hr PRN DAILY PRN 04/29/21 10:45 Metoprolol Tartrate (Lopressor Vial) 5 mg Q6HRS 04/25/21 18:00 05/06/21 17:18 5 MG Midazolam HCl 100 ml @ 0 mls/hr CONT PRN 04/26/21 07:00 05/02/21 19:58 6 MLS/HR Montelukast Sodium (Singulair) 10 mg HS 04/24/21 21:00 05/06/21 20:57 10 MG Nicardipine HCl 50 mg/Sodium Chloride 250 ml @ 25 mls/hr CONT PRN 05/06/21 18:45 05/07/21 06:56 25 MLS/HR Norepinephrine Bitartrate 8 mg/ Dextrose 258 ml @ 25.852 mls/ hr CONT PRN 05/02/21 21:00 05/02/21 21:22 25.852 MLS/HR Ondansetron HCl (Zofran) 4 mg PRN Q6HRS PRN 04/24/21 14:00 Pantoprazole Sodium (PROTONIX VIAL for IV PUSH) 40 mg DAILYAC 04/26/21 09:30 05/06/21 07:34 40 MG Potassium Chloride/Water 100 ml @ 100 mls/hr 1X ONCE 05/06/21 08:30 05/06/21 09:29 DC 05/06/21 09:14 100 MLS/HR Propofol 100 ml @ 0 mls/hr CONT PRN 04/24/21 15:30 05/07/21 04:47 23.6 MLS/HR Remdesivir 100 mg/ Sodium Chloride 230 ml @ 460 mls/hr Q24H 04/26/21 17:30 04/29/21 17:59 DC 04/29/21 13:51 460 MLS/HR Remdesivir 200 mg/ Sodium Chloride 210 ml @ 210 mls/hr 1X ONCE 04/25/21 17:30 04/25/21 18:29 DC 04/25/21 17:09 210 MLS/HR Sodium Bicarbonate (Sodium Bicarb Adult 8.4% Syr) 50 meq 1X ONCE 04/27/21 09:45 04/27/21 09:46 DC 04/27/21 09:50 50 MEQ Sodium Chloride 1,000 ml @ 400 mls/hr Q2H30M PRN 05/07/21 08:45 05/07/21 20:44 Sodium Chloride (Normal Saline Flush) 10 ml 1X PRN PRN 05/04/21 07:30 05/05/21 07:29 DC Succinylcholine Chloride (Anectine) 200 mg STK-MED ONCE 04/24/21 13:38 04/24/21 13:38 DC Vecuronium Jenkinjones (Norcuron Bolus) 6 mg PRN Q6HRS PRN 04/30/21 11:15 Lab Laboratory Tests Test 05/06/21 11:46 05/06/21 12:00 05/06/21 17:20 05/07/21 00:53 Glucose (Fingerstick) 148 mg/dL (70-99) 219 mg/dL (70-99) 215 mg/dL (70-99) Clostridium difficile Toxin (PCR) Negative (NEGATIVE) Test 05/07/21 06:25 05/07/21 06:32 05/07/21 08:00 Sodium Level 133 mmol/L (136-145) Potassium Level 3.3 mmol/L (3.5-5.1) Chloride Level 95 mmol/L (98-107) Carbon Dioxide Level 27 mmol/L (21-32) Anion Gap 11 (6-14) Blood Urea Nitrogen 62 mg/dL (8-26) Creatinine 3.0 mg/dL (0.7-1.3) Estimated GFR (Cockcroft-Gault) 24.9 BUN/Creatinine Ratio 21 (6-20) Glucose Level 197 mg/dL (70-99) Calcium Level 8.5 mg/dL (8.5-10.1) Total Bilirubin 0.4 mg/dL (0.2-1.0) Aspartate Amino Transf (AST/SGOT) 46 U/L (15-37) Alanine Aminotransferase (ALT/SGPT) 18 U/L (16-63) Alkaline Phosphatase 64 U/L (46-116) Total Protein 5.6 g/dL (6.4-8.2) Albumin 1.5 g/dL (3.4-5.0) Albumin/Globulin Ratio 0.4 (1.0-1.7) Glucose (Fingerstick) 199 mg/dL (70-99) O2 Saturation 93 % (92-99) Arterial Blood pH 7.47 (7.35-7.45) Arterial Blood pCO2 at Patient Temp 34 mmHg (35-46) Arterial Blood pO2 at Patient Temp 69 mmHg (65-108) Arterial Blood HCO3 24 mmol/L (21-28) Arterial Blood Base Excess 1 mmol/L (-3-3) FiO2 40 Results All relevant outside records, renal labs, imaging studies, telemetry/EKG's were reviewed. Justicifation of Admission Dx: Justifications for Admission: Justification of Admission Dx: Yes Aspiration Pneumonia: Hemodynamic Instability JASMEET LAM MD May 07, 2021 09:18
--- NOTE | 2021-05-07 09:22 | PDOC ---
PULMONARY PROGRESS NOTES DATE: 05/07/21 TIME: 09:18 Subjective intubated/sedated Currently on 40%, 5 of PEEP now on cardene gtt didn't tolerate PS trial 05/06/21 Vitals Vital Signs Date Time Temp Pulse Resp B/P (MAP) Pulse Ox O2 Delivery O2 Flow Rate FiO2 05/07/21 09:07 52 20 148/58 (88) 99 Ventilator 05/07/21 08:05 97.5 97.5 Comments Visual exam done due to COVID-19. Intubated and sedated No paradoxical breathing. Labs Laboratory Tests Test 05/05/21 11:58 05/05/21 17:30 05/06/21 00:42 05/06/21 06:45 Glucose (Fingerstick) 222 mg/dL (70-99) 261 mg/dL (70-99) 199 mg/dL (70-99) White Blood Count 18.7 x10^3/uL (4.0-11.0) Red Blood Count 2.85 x10^6/uL (4.30-5.70) Hemoglobin 7.6 g/dL (13.0-17.5) Hematocrit 23.1 % (39.0-53.0) Mean Corpuscular Volume 81 fL (79-100) Mean Corpuscular Hemoglobin 27 pg (25-35) Mean Corpuscular Hemoglobin Concent 33 g/dL (31-37) Red Cell Distribution Width 15.7 % (11.5-14.5) Platelet Count 346 x10^3/uL (140-400) Neutrophils (%) (Auto) 85 % (31-73) Lymphocytes (%) (Auto) 8 % (24-48) Monocytes (%) (Auto) 5 % (0-9) Eosinophils (%) (Auto) 2 % (0-3) Basophils (%) (Auto) 1 % (0-3) Neutrophils # (Auto) 15.9 x10^3/uL (1.8-7.7) Lymphocytes # (Auto) 1.5 x10^3/uL (1.0-4.8) Monocytes # (Auto) 1.0 x10^3/uL (0.0-1.1) Eosinophils # (Auto) 0.3 x10^3/uL (0.0-0.7) Basophils # (Auto) 0.1 x10^3/uL (0.0-0.2) Sodium Level 134 mmol/L (136-145) Potassium Level 3.2 mmol/L (3.5-5.1) Chloride Level 97 mmol/L (98-107) Carbon Dioxide Level 29 mmol/L (21-32) Anion Gap 8 (6-14) Blood Urea Nitrogen 56 mg/dL (8-26) Creatinine 2.9 mg/dL (0.7-1.3) Estimated GFR (Cockcroft-Gault) 25.9 Glucose Level 172 mg/dL (70-99) Calcium Level 8.0 mg/dL (8.5-10.1) Phosphorus Level 5.3 mg/dL (2.6-4.7) Albumin 1.5 g/dL (3.4-5.0) Test 05/06/21 07:45 05/06/21 11:46 05/06/21 12:00 05/06/21 17:20 O2 Saturation 93 % (92-99) Arterial Blood pH 7.42 (7.35-7.45) Arterial Blood pCO2 at Patient Temp 40 mmHg (35-46) Arterial Blood pO2 at Patient Temp 67 mmHg (65-108) Arterial Blood HCO3 26 mmol/L (21-28) Arterial Blood Base Excess 1 mmol/L (-3-3) FiO2 40 Glucose (Fingerstick) 148 mg/dL (70-99) 219 mg/dL (70-99) Clostridium difficile Toxin (PCR) Negative (NEGATIVE) Test 05/07/21 00:53 05/07/21 06:25 05/07/21 06:32 05/07/21 08:00 Glucose (Fingerstick) 215 mg/dL (70-99) 199 mg/dL (70-99) Sodium Level 133 mmol/L (136-145) Potassium Level 3.3 mmol/L (3.5-5.1) Chloride Level 95 mmol/L (98-107) Carbon Dioxide Level 27 mmol/L (21-32) Anion Gap 11 (6-14) Blood Urea Nitrogen 62 mg/dL (8-26) Creatinine 3.0 mg/dL (0.7-1.3) Estimated GFR (Cockcroft-Gault) 24.9 BUN/Creatinine Ratio 21 (6-20) Glucose Level 197 mg/dL (70-99) Calcium Level 8.5 mg/dL (8.5-10.1) Total Bilirubin 0.4 mg/dL (0.2-1.0) Aspartate Amino Transf (AST/SGOT) 46 U/L (15-37) Alanine Aminotransferase (ALT/SGPT) 18 U/L (16-63) Alkaline Phosphatase 64 U/L (46-116) Total Protein 5.6 g/dL (6.4-8.2) Albumin 1.5 g/dL (3.4-5.0) Albumin/Globulin Ratio 0.4 (1.0-1.7) O2 Saturation 93 % (92-99) Arterial Blood pH 7.47 (7.35-7.45) Arterial Blood pCO2 at Patient Temp 34 mmHg (35-46) Arterial Blood pO2 at Patient Temp 69 mmHg (65-108) Arterial Blood HCO3 24 mmol/L (21-28) Arterial Blood Base Excess 1 mmol/L (-3-3) FiO2 40 Laboratory Tests Test 05/06/21 11:46 05/06/21 12:00 05/06/21 17:20 05/07/21 00:53 Glucose (Fingerstick) 148 mg/dL (70-99) 219 mg/dL (70-99) 215 mg/dL (70-99) Clostridium difficile Toxin (PCR) Negative (NEGATIVE) Test 05/07/21 06:25 05/07/21 06:32 05/07/21 08:00 Sodium Level 133 mmol/L (136-145) Potassium Level 3.3 mmol/L (3.5-5.1) Chloride Level 95 mmol/L (98-107) Carbon Dioxide Level 27 mmol/L (21-32) Anion Gap 11 (6-14) Blood Urea Nitrogen 62 mg/dL (8-26) Creatinine 3.0 mg/dL (0.7-1.3) Estimated GFR (Cockcroft-Gault) 24.9 BUN/Creatinine Ratio 21 (6-20) Glucose Level 197 mg/dL (70-99) Calcium Level 8.5 mg/dL (8.5-10.1) Total Bilirubin 0.4 mg/dL (0.2-1.0) Aspartate Amino Transf (AST/SGOT) 46 U/L (15-37) Alanine Aminotransferase (ALT/SGPT) 18 U/L (16-63) Alkaline Phosphatase 64 U/L (46-116) Total Protein 5.6 g/dL (6.4-8.2) Albumin 1.5 g/dL (3.4-5.0) Albumin/Globulin Ratio 0.4 (1.0-1.7) Glucose (Fingerstick) 199 mg/dL (70-99) O2 Saturation 93 % (92-99) Arterial Blood pH 7.47 (7.35-7.45) Arterial Blood pCO2 at Patient Temp 34 mmHg (35-46) Arterial Blood pO2 at Patient Temp 69 mmHg (65-108) Arterial Blood HCO3 24 mmol/L (21-28) Arterial Blood Base Excess 1 mmol/L (-3-3) FiO2 40 Medications Active Scripts Medications Dose Route/Sig Max Daily Dose Days Date Category Glyburide 2.5 Mg Tablet 1 Tab PO DAILY 04/19/21 Rx Polyethylene Glycol 3350 17 Gm Powd.pack 17 Gm PO DAILY 04/19/21 Rx Dok (Docusate Sodium) 100 Mg Capsule 100 Mg PO PRN DAILY PRN 04/19/21 Rx Bisacodyl 5 Mg Tablet.dr 5 Mg PO PRN DAILY PRN 04/19/21 Rx Acetaminophen 325 Mg Tablet 650 Mg PO PRN Q4HRS PRN 04/19/21 Rx Aspirin Ec (Aspirin) 81 Mg Tablet.dr 81 Mg PO DAILYWBKFT 04/19/21 Rx Hydralazine Hcl 25 Mg Tablet 25 Mg PO QID 04/19/21 Rx Fenofibrate 54 Mg Tablet 1 Tab PO DAILY 04/17/21 Reported Potassium Chloride (Potassium Chloride) 20 Meq Tablet.er 20 Meq PO DAILY 04/17/21 Reported Coreg (Carvedilol) 12.5 Mg Tablet 37.5 Mg PO BIDWMEALS 04/17/21 Reported Rosuvastatin Calcium 40 Mg Tablet 40 Mg PO QHS 04/17/21 Reported Gabapentin (Gabapentin) 100 Mg Capsule 200 Mg PO BID 04/17/21 Reported Montelukast Sodium Tablet (Montelukast Sodium) 10 Mg Tablet 10 Mg PO HS 04/17/21 Reported Protonix (Pantoprazole Sodium) 20 Mg Tablet.dr 2 Tab PO DAILY 04/17/21 Reported Amlodipine Besylate 5 Mg Tablet 5 Mg PO DAILY 04/17/21 Reported Furosemide 40 Mg Tablet 1 Tab PO DAILY 04/17/21 Reported Proair Hfa Inhaler (Albuterol Sulfate) 8.5 Gm Hfa.aer.ad 2 Puff IH PRN Q4-6HRS PRN 21 04/16/21 Reported Advair 100-50 Diskus (Fluticasone/Salmeterol) 1 Each Disk.w.dev 1 Puff IH BID 04/16/21 Reported Comments Impression . IMPRESSION: 1. Acute hypoxic respiratory failure, multifactorial/COVID-19 viral pneumonia/ARDS 2. Abnormal CT chest with bilateral diffuse interstitial infiltrates without any significant pleural effusion 3. Leukocytosis, sepsis--ongoing ID following 4. Non-ST segment elevation CA 5. History of tobacco use, suspect COPD, unknown FEV1 6. Chronic kidney disease. Worsening ILDA on CKD, on HD now 7. Metabolic acidosis multifactorial 8. Abnormal chest x-ray 9. Hypoglycemia, continue to monitor 10. Hypotension, suspect volume deficit,/possible sepsis 11. Fever--resolved Plan . Updated 05/07/21 Continue current vent support 40% and PEEP of 5, attempt sedation vacation and PS trial, pt. didn't tolerate PS trial 05/06/21 Follow ABG/CXR--reviewed no changes DC steroids--has completed full 12 day course Proceed with sedation vacation and PS trial Follow ID recs for ABX --Continue cefepime-- Follow cultures Follow nephrology recs-- HD Follow Cardiology recs--preserved LV function continue TF for nutritional support DVT/GI PPX:subQ heparin D/W RN and RT Pt. is DNR Updated 05/06/21 Continue current vent support 40% and PEEP of 5 Follow ABG/CXR continue steroids Proceed with sedation vacation and PS trial Follow ID recs for ABX --Continue cefepime-- Follow cultures Follow nephrology recs-- HD Follow Cardiology recs continue TF for nutritional support DVT/GI PPX D/W RN and RT Pt. is DNR Updated 05/05 Appreciate ID input Continue cefepime and daptomycin ABG noted, discussed with RT Monitor blood sugars Hemodialysis per nephrology Anticoagulation Changed, follow-up on central line tip cultures GI prophylaxis Chest x-ray from 730 reviewed, no significant change 05/04, updated ABG noted PaO2 of 97 Chest x-ray noted no significant change bilateral infiltrate So far cultures negative Antibiotics per ID Monitor blood sugars Hemodialysis per nephrology Patient not ready for spontaneous trial ADELSO AVILA MD May 07, 2021 09:22
[2021-05-07] MEDS ORDERED: ALBUMIN HUMAN 25% 100 ML IV ONE (11:45)
[2021-05-07] MEDS: PANTOPRAZOLE IV PUSH 40 MG VIAL. IVP SCH (12:43)
[2021-05-07] MEDS: AMIODARONE HCL 200 MG TABLET. PO SCH (12:44)
[2021-05-07] MEDS: ASPIRIN CHEWABLE 81 MG TABLET. PO SCH (12:44)
--- NOTE | 2021-05-07 15:26 | NUR ---
SS following up with discharge planning. SS reviewed pt chart and discussed with pt RN. Pt is currently on the vent at 40%. COVID19 positive. Pt on IV Cefepime and IV Lasix. Pt on Propofol, Fentanyl, Precedex, and Cardine. Hemodialysis today. Not stable. SS will continue to follow for discharge planning.
--- NOTE | 2021-05-07 15:57 | PDOC ---
PROGRESS NOTES Date of Service DATE: 05/07/21 TIME: 15:54 Subjective Subjective Patient seen and evaluated. Objective Objective Vital Signs Date Time Temp Pulse Resp B/P (MAP) Pulse Ox O2 Delivery O2 Flow Rate FiO2 05/07/21 15:51 Mechanical Ventilator 05/07/21 15:03 59 20 146/56 (86) 98 05/07/21 11:59 97.9 97.9 Intake and Output 05/07/21 07:00 Intake Total 3421 ml Output Total 2855 ml Balance 566 ml IV Total 819 ml Tube Feeding 1848 ml Other 754 ml Output Urine Total 2855 ml Physical Exam Physical Exam Visual examination secondary to Covid status. Assessment Assessment Problems Medical Problems: (1) Elevated troponin Status: Acute (2) Person under investigation for COVID-19 Status: Acute (3) Pulmonary edema Status: Acute Acute respiratory failure secondary to CHF, s/p intubation. COVID +. Followed by the pulmonary service. Acute on chronic diastolic CHF Hypertensive urgency; controlled NSTEMI; trop highest 2.8. Echo last week with preserved LV systolic function with moderate LVH. Most probable type II, demand ischemia in setting of above, although underling ischemic cannot be ruled out. Possible history of coronary artery disease. Hyperlipidemia; statin ILDA on CKD; requiring HD. As per the renal service. Diabetes, II New AFIB with RVR: maintaining SR with PACs. On amiodarone and metoprolol as tolerated. Comment Review of Relevant I have reviewed the following items juanita (where applicable) has been applied. Labs Laboratory Tests Test 05/05/21 17:30 05/06/21 00:42 05/06/21 06:45 05/06/21 07:45 Glucose (Fingerstick) 261 mg/dL (70-99) 199 mg/dL (70-99) White Blood Count 18.7 x10^3/uL (4.0-11.0) Red Blood Count 2.85 x10^6/uL (4.30-5.70) Hemoglobin 7.6 g/dL (13.0-17.5) Hematocrit 23.1 % (39.0-53.0) Mean Corpuscular Volume 81 fL (79-100) Mean Corpuscular Hemoglobin 27 pg (25-35) Mean Corpuscular Hemoglobin Concent 33 g/dL (31-37) Red Cell Distribution Width 15.7 % (11.5-14.5) Platelet Count 346 x10^3/uL (140-400) Neutrophils (%) (Auto) 85 % (31-73) Lymphocytes (%) (Auto) 8 % (24-48) Monocytes (%) (Auto) 5 % (0-9) Eosinophils (%) (Auto) 2 % (0-3) Basophils (%) (Auto) 1 % (0-3) Neutrophils # (Auto) 15.9 x10^3/uL (1.8-7.7) Lymphocytes # (Auto) 1.5 x10^3/uL (1.0-4.8) Monocytes # (Auto) 1.0 x10^3/uL (0.0-1.1) Eosinophils # (Auto) 0.3 x10^3/uL (0.0-0.7) Basophils # (Auto) 0.1 x10^3/uL (0.0-0.2) Sodium Level 134 mmol/L (136-145) Potassium Level 3.2 mmol/L (3.5-5.1) Chloride Level 97 mmol/L (98-107) Carbon Dioxide Level 29 mmol/L (21-32) Anion Gap 8 (6-14) Blood Urea Nitrogen 56 mg/dL (8-26) Creatinine 2.9 mg/dL (0.7-1.3) Estimated GFR (Cockcroft-Gault) 25.9 Glucose Level 172 mg/dL (70-99) Calcium Level 8.0 mg/dL (8.5-10.1) Phosphorus Level 5.3 mg/dL (2.6-4.7) Albumin 1.5 g/dL (3.4-5.0) O2 Saturation 93 % (92-99) Arterial Blood pH 7.42 (7.35-7.45) Arterial Blood pCO2 at Patient Temp 40 mmHg (35-46) Arterial Blood pO2 at Patient Temp 67 mmHg (65-108) Arterial Blood HCO3 26 mmol/L (21-28) Arterial Blood Base Excess 1 mmol/L (-3-3) FiO2 40 Test 05/06/21 11:46 05/06/21 12:00 05/06/21 17:20 05/07/21 00:53 Glucose (Fingerstick) 148 mg/dL (70-99) 219 mg/dL (70-99) 215 mg/dL (70-99) Clostridium difficile Toxin (PCR) Negative (NEGATIVE) Test 05/07/21 06:25 05/07/21 06:32 05/07/21 08:00 Sodium Level 133 mmol/L (136-145) Potassium Level 3.3 mmol/L (3.5-5.1) Chloride Level 95 mmol/L (98-107) Carbon Dioxide Level 27 mmol/L (21-32) Anion Gap 11 (6-14) Blood Urea Nitrogen 62 mg/dL (8-26) Creatinine 3.0 mg/dL (0.7-1.3) Estimated GFR (Cockcroft-Gault) 24.9 BUN/Creatinine Ratio 21 (6-20) Glucose Level 197 mg/dL (70-99) Calcium Level 8.5 mg/dL (8.5-10.1) Total Bilirubin 0.4 mg/dL (0.2-1.0) Aspartate Amino Transf (AST/SGOT) 46 U/L (15-37) Alanine Aminotransferase (ALT/SGPT) 18 U/L (16-63) Alkaline Phosphatase 64 U/L (46-116) Total Protein 5.6 g/dL (6.4-8.2) Albumin 1.5 g/dL (3.4-5.0) Albumin/Globulin Ratio 0.4 (1.0-1.7) Glucose (Fingerstick) 199 mg/dL (70-99) O2 Saturation 93 % (92-99) Arterial Blood pH 7.47 (7.35-7.45) Arterial Blood pCO2 at Patient Temp 34 mmHg (35-46) Arterial Blood pO2 at Patient Temp 69 mmHg (65-108) Arterial Blood HCO3 24 mmol/L (21-28) Arterial Blood Base Excess 1 mmol/L (-3-3) FiO2 40 Laboratory Tests Test 05/06/21 17:20 05/07/21 00:53 05/07/21 06:25 05/07/21 06:32 Glucose (Fingerstick) 219 mg/dL (70-99) 215 mg/dL (70-99) 199 mg/dL (70-99) Sodium Level 133 mmol/L (136-145) Potassium Level 3.3 mmol/L (3.5-5.1) Chloride Level 95 mmol/L (98-107) Carbon Dioxide Level 27 mmol/L (21-32) Anion Gap 11 (6-14) Blood Urea Nitrogen 62 mg/dL (8-26) Creatinine 3.0 mg/dL (0.7-1.3) Estimated GFR (Cockcroft-Gault) 24.9 BUN/Creatinine Ratio 21 (6-20) Glucose Level 197 mg/dL (70-99) Calcium Level 8.5 mg/dL (8.5-10.1) Total Bilirubin 0.4 mg/dL (0.2-1.0) Aspartate Amino Transf (AST/SGOT) 46 U/L (15-37) Alanine Aminotransferase (ALT/SGPT) 18 U/L (16-63) Alkaline Phosphatase 64 U/L (46-116) Total Protein 5.6 g/dL (6.4-8.2) Albumin 1.5 g/dL (3.4-5.0) Albumin/Globulin Ratio 0.4 (1.0-1.7) Test 05/07/21 08:00 O2 Saturation 93 % (92-99) Arterial Blood pH 7.47 (7.35-7.45) Arterial Blood pCO2 at Patient Temp 34 mmHg (35-46) Arterial Blood pO2 at Patient Temp 69 mmHg (65-108) Arterial Blood HCO3 24 mmol/L (21-28) Arterial Blood Base Excess 1 mmol/L (-3-3) FiO2 40 Microbiology 05/04/21 Gram Stain Evaluation - Final, Complete 05/04/21 Respiratory Culture - Final, Complete 05/04/21 Gram Stain - Final, Resulted 05/04/21 Aerobic Culture - Preliminary, Resulted 05/04/21 Blood Culture - Preliminary, Resulted NO GROWTH AFTER 3 DAYS Medications Current Medications Propofol 100 ml @ As Directed STK-MED ONCE IV ; Start 04/24/21 at 12:36; Stop 04/24/21 at 12:36; Status DC Etomidate (Amidate) 20 mg STK-MED ONCE IV ; Start 04/24/21 at 13:38; Stop 04/24/21 at 13:38; Status DC Succinylcholine Chloride (Anectine) 200 mg STK-MED ONCE .ROUTE ; Start 04/24/21 at 13:38; Stop 04/24/21 at 13:38; Status DC Fentanyl Citrate (Fentanyl 2ml Vial) 50 mcg PRN Q1HR PRN IV PAIN; Start 04/24/21 at 14:00; Stop 04/24/21 at 14:14; Status DC Acetaminophen (Tylenol) 650 mg PRN Q6HRS PRN PO Headaches, Temp > 101.5' Last administered on 04/25/21at 17:31; Start 04/24/21 at 14:00 Ondansetron HCl (Zofran) 4 mg PRN Q6HRS PRN IVP NAUSEA/VOMITING; Start 04/24/21 at 14:00; Status Cancel Sodium Chloride (Normal Saline Flush) 3 ml QSHIFT PRN IV AFTER MEDS AND BLOOD DRAWS; Start 04/24/21 at 14:00 Fentanyl Citrate (Fentanyl 2ml Vial) 25 mcg PRN Q1HR PRN IV SEVERE PAIN 7-10; Start 04/24/21 at 14:00; Stop 04/24/21 at 14:14; Status DC Bisacodyl (Dulcolax Supp) 10 mg PRN DAILY PRN IN CONSTIPATION; Start 04/24/21 at 14:00 Fentanyl Citrate 30 ml @ 0 mls/hr CONT PRN IV SEE PROTOCOL; Start 04/24/21 at 14:00; Stop 04/24/21 at 14:12; Status DC Propofol 100 ml @ 0 mls/hr CONT PRN IV PER PROTOCOL Last administered on 04/24/21at 15:12; Start 04/24/21 at 14:00; Stop 04/24/21 at 15:19; Status DC Chlorhexidine Gluconate (Peridex) 15 ml BID MM Last administered on 04/24/21at 20:49; Start 04/24/21 at 21:00; Stop 04/25/21 at 11:19; Status DC Acetaminophen (Tylenol) 650 mg PRN Q6HRS PRN PO Headaches, Temp > 101.5'; Start 04/24/21 at 14:00; Status Cancel Ondansetron HCl (Zofran) 4 mg PRN Q6HRS PRN IVP NAUSEA/VOMITING; Start 04/24/21 at 14:00 Fentanyl Citrate (Fentanyl 2ml Vial) 25 mcg PRN Q1HR PRN IV SEVERE PAIN 7-10 Last administered on 04/24/21at 16:39; Start 04/24/21 at 14:00 Fentanyl Citrate 30 ml @ 0 mls/hr CONT PRN IV SEE PROTOCOL Last administered on 05/07/21at 10:53; Start 04/24/21 at 14:00 Aspirin (Ecotrin) 81 mg DAILYWBKFT PO Last administered on 05/02/21at 07:20; Start 04/25/21 at 08:00; Stop 05/03/21 at 09:56; Status DC Carvedilol (Coreg) 37.5 mg BIDWMEALS PO ; Start 04/24/21 at 17:00; Stop 04/24/21 at 16:17; Status DC Montelukast Sodium (Singulair) 10 mg HS PO Last administered on 05/06/21at 20:57; Start 04/24/21 at 21:00 Atorvastatin Calcium (Lipitor) 80 mg QHS PO Last administered on 05/06/21at 20:58 ; Start 04/24/21 at 21:00 Heparin Sodium (Porcine) (Heparin Sodium) 5,000 unit Q8HRS SQ ; Start 04/24/21 at 22:00; Status Cancel Furosemide (Lasix) 40 mg 1X ONCE IVP Last administered on 04/24/21at 16:45; Start 04/24/21 at 15:15; Stop 04/24/21 at 15:19; Status DC Propofol 100 ml @ 0 mls/hr CONT PRN IV PER PROTOCOL Last administered on 05/07/21at 15:48; Start 04/24/21 at 15:30 Carvedilol (Coreg) 3.125 mg BIDWMEALS PO Last administered on 04/25/21at 09:23; Start 04/24/21 at 17:00; Stop 04/25/21 at 15:42; Status DC Cefepime HCl (Maxipime) 2 gm 1X ONCE IVP Last administered on 04/24/21at 18:27; Start 04/24/21 at 16:30; Stop 04/24/21 at 16:31; Status DC Insulin Human Lispro (HumaLOG) 0-9 UNITS Q6HRS SQ Last administered on 05/03/21at 12:24; Start 04/24/21 at 18:00; Stop 05/03/21 at 13:51; Status DC Dextrose (Dextrose 50%-Water Syringe) 12.5 gm PRN Q15MIN PRN IV SEE COMMENTS Last administered on 05/03/21at 04:59; Start 04/24/21 at 16:30; Stop 05/03/21 at 13:54; Status DC Heparin Sodium/ Dextrose 250 ml @ 0 mls/hr CONT PRN IV PER PROTOCOL Last administered on 05/01/21at 05:10; Start 04/24/21 at 16:45; Stop 05/01/21 at 12:32; Status DC Heparin Sodium (Porcine) (Heparin Sodium) 3,200 unit PRN Q6HRS PRN IV FOR UFH LEVEL LESS THAN 0.2 Last administered on 04/24/21at 23:32; Start 04/24/21 at 16:45; Stop 05/01/21 at 12:32; Status DC Cefepime HCl (Maxipime) 1 gm Q12HR IVP Last administered on 04/27/21at 08:09; Start 04/25/21 at 09:00; Stop 04/27/21 at 09:17; Status DC Furosemide (Lasix) 40 mg 1X ONCE IVP ; Start 04/25/21 at 11:30; Stop 04/25/21 at 11:31; Status DC Metoprolol Tartrate (Lopressor Vial) 5 mg 1X ONCE IVP Last administered on 04/25/21at 11:27; Start 04/25/21 at 11:30; Stop 04/25/21 at 11:31; Status DC Info (Anti-Coagulation Monitoring By Pharmacy) 1 each PRN DAILY PRN MC PER PROTOCOL Last administered on 04/26/21at 08:51; Start 04/25/21 at 13:00; Stop 05/02/21 at 07:36; Status DC Digoxin (Lanoxin) 500 mcg 1X ONCE IV Last administered on 04/25/21at 14:52; Start 04/25/21 at 14:45; Stop 04/25/21 at 14:46; Status DC Hydralazine HCl (Apresoline Inj) 10 mg PRN Q4HRS PRN IVP ELEVATED BP, SEE COMMENTS Last administered on 05/04/21at 17:47; Start 04/25/21 at 14:45 Metoprolol Tartrate (Lopressor Vial) 5 mg Q6HRS IVP Last administered on 05/07/21at 12:43; Start 04/25/21 at 18:00 Dexamethasone Sodium Phosphate (Decadron) 6 mg DAILY IVP Last administered on 05/06/21at 08:38; Start 04/25/21 at 17:00; Stop 05/07/21 at 09:18; Status DC Remdesivir 200 mg/ Sodium Chloride 210 ml @ 210 mls/hr 1X ONCE IV Last administered on 04/25/21at 17:09; Start 04/25/21 at 17:30; Stop 04/25/21 at 18:29; Status DC Remdesivir 100 mg/ Sodium Chloride 230 ml @ 460 mls/hr Q24H IV Last administered on 04/29/21at 13:51; Start 04/26/21 at 17:30; Stop 04/29/21 at 17:59; Status DC Midazolam HCl 100 ml @ 0 mls/hr CONT PRN IV SEE PROTOCOL Last administered on 05/02/21at 19:58; Start 04/26/21 at 07:00 Pantoprazole Sodium (PROTONIX VIAL for IV PUSH) 40 mg DAILYAC IVP Last administered on 05/07/21at 12:43; Start 04/26/21 at 09:30 Norepinephrine Bitartrate 8 mg/ Dextrose 258 ml @ 25.349 mls/ hr CONT PRN IV PER PROTOCOL Last administered on 04/26/21at 17:53; Start 04/26/21 at 12:15; Stop 05/02/21 at 20:53; Status DC Digoxin (Lanoxin) 250 mcg 1X ONCE IV Last administered on 04/26/21at 15:02; Start 04/26/21 at 13:00; Stop 04/26/21 at 13:05; Status DC Amiodarone HCl 150 mg/Dextrose 103 ml @ 618 mls/hr 1X ONCE IV Last admi nistered on 04/27/21at 02:30; Start 04/27/21 at 02:30; Stop 04/27/21 at 02:39; Status DC Amiodarone HCl 450 mg/Dextrose 259 ml @ 33 mls/hr CONT PRN IV SEE I/O RECORD; Start 04/27/21 at 02:30; Stop 04/30/21 at 07:56; Status DC Insulin Glargine (Lantus Syringe) 25 unit QHS SQ Last administered on 05/02/21at 21:23; Start 04/27/21 at 21:00; Stop 05/03/21 at 13:45; Status DC Cefepime HCl (Maxipime) 1 gm Q24H IVP Last administered on 05/03/21at 10:02; Start 04/28/21 at 09:30; Stop 05/03/21 at 13:19; Status DC Sodium Bicarbonate (Sodium Bicarb Adult 8.4% Syr) 50 meq 1X ONCE IV Last administered on 04/27/21at 09:50; Start 04/27/21 at 09:45; Stop 04/27/21 at 09:46; Status DC Lidocaine HCl (Buffered Lidocaine 1%) 3 ml STK-MED ONCE .ROUTE ; Start 04/27/21 at 10:57; Stop 04/27/21 at 10:58; Status DC Amiodarone HCl (Cordarone) 200 mg DAILY PO ; Start 04/27/21 at 12:00; Stop 04/27/21 at 12:29; Status DC Lidocaine HCl (Buffered Lidocaine 1%) 3 ml 1X ONCE INJ Last administered on 04/27/21at 11:15; Start 04/27/21 at 11:15; Stop 04/27/21 at 11:16; Status DC Amiodarone HCl (Cordarone) 200 mg DAILY PO Last administered on 05/07/21at 12:44; Start 04/28/21 at 09:00 Sodium Chloride 1,000 ml @ 1,000 mls/hr Q1H PRN IV hypotension; Start 04/28/21 at 11:00; Stop 04/28/21 at 16:59; Status DC Albumin Human 200 ml @ 200 mls/hr 1X PRN PRN IV Hypotension; Start 04/28/21 at 11:00; Stop 04/28/21 at 16:59; Status DC Sodium Chloride (Normal Saline Flush) 10 ml 1X PRN PRN IV AP catheter pack; Start 04/28/21 at 11:00; Stop 04/29/21 at 10:59; Status DC Sodium Chloride (Normal Saline Flush) 10 ml 1X PRN PRN IV [employer]ER catheter pack; Start 04/28/21 at 11:00; Stop 04/29/21 at 10:59; Status DC Sodium Chloride 1,000 ml @ 400 mls/hr Q2H30M PRN IV PATENCY; Start 04/28/21 at 11:00; Stop 04/28/21 at 22:59; Status DC Info (PHARMACY MONITORING -- do not chart) 1 each PRN DAILY PRN MC SEE COMMENTS; Start 04/28/21 at 11:00; Status UNV Info (PHARMACY MONITORING -- do not chart) 1 each PRN DAILY PRN MC SEE COMMENTS; Start 04/28/21 at 11:00; Stop 04/30/21 at 22:39; Status DC Magnesium Sulfate 50 ml @ 25 mls/hr PRN DAILY PRN IV for Mag < 1.7 on am labs; Start 04/29/21 at 10:45 Vecuronium [place] (Norcuron Bolus) 6 mg PRN Q6HRS PRN IV VENTILATOR COMPLIANCE; Start 04/30/21 at 11:15 Info (PHARMACY MONITORING -- do not chart) 1 each PRN DAILY PRN MC SEE COMMENTS; Start 04/30/21 at 12:30; Status Cancel Labetalol HCl (Normodyne Iv Push) 20 mg PRN Q2HR PRN IVP HYPERTENSION Last administered on 05/06/21at 17:19; Start 05/01/21 at 12:30 Heparin Sodium (Porcine) (Heparin Sodium) 5,000 unit Q8HRS SQ Last administered on 05/07/21at 14:54; Start 05/01/21 at 14:00 Furosemide (Lasix) 80 mg 1X ONCE IVP Last administered on 05/02/21at 10:45; Start 05/02/21 at 10:45; Stop 05/02/21 at 10:46; Status DC Furosemide (Lasix) 40 mg Q8HRS IVP Last administered on 05/07/21at 14:53; Start 05/02/21 at 14:00 Sodium Chloride 1,000 ml @ 1,000 mls/hr Q1H PRN IV hypotension; Start 05/02/21 at 11:30; Stop 05/02/21 at 17:29; Status DC Albumin Human 200 ml @ 200 mls/hr 1X PRN PRN IV Hypotension; Start 05/02/21 at 11:30; Stop 05/02/21 at 17:29; Status DC Sodium Chloride (Normal Saline Flush) 10 ml 1X PRN PRN IV AP catheter pack; Start 05/02/21 at 11:30; Stop 05/02/21 at 18:00; Status DC Sodium Chloride (Normal Saline Flush) 10 ml 1X PRN PRN IV [employer]ER catheter pack; Start 05/02/21 at 11:30; Stop 05/02/21 at 18:00; Status DC Sodium Chloride 1,000 ml @ 400 mls/hr Q2H30M PRN IV PATENCY; Start 05/02/21 at 11:30; Stop 05/02/21 at 23:29; Status DC Info (PHARMACY MONITORING -- do not chart) 1 each PRN DAILY PRN MC SEE COMMENTS; Start 05/02/21 at 11:30; Status UNV Info (PHARMACY MONITORING -- do not chart) 1 each PRN DAILY PRN MC SEE COMMENTS; Start 05/02/21 at 11:30; Status UNV Norepinephrine Bitartrate 8 mg/ Dextrose 258 ml @ 25.852 mls/ hr CONT PRN IV PER PROTOCOL Last administered on 05/02/21at 21:22; Start 05/02/21 at 21:00 Dextrose 1,000 ml @ 50 mls/hr Q20H IV Last administered on 05/03/21at 05:15; Start 05/03/21 at 05:15; Stop 05/03/21 at 13:53; Status DC Aspirin (Aspirin Chewable) 81 mg DAILYWBKFT PO Last administered on 05/07/21at 12:44; Start 05/03/21 at 10:00 Insulin Glargine (Lantus Syringe) 10 unit QHS SQ Last administered on 05/06/21at 21:04; Start 05/03/21 at 21:00 Insulin Human Lispro (HumaLOG) 0-5 UNITS Q6HRS SQ Last administered on 05/07/21at 12:46; Start 05/03/21 at 18:00 Dextrose (Dextrose 50%-Water Syringe) 12.5 gm PRN Q15MIN PRN IV SEE COMMENTS; Start 05/03/21 at 14:00 Sodium Chloride 1,000 ml @ 1,000 mls/hr Q1H PRN IV hypotension; Start 05/04/21 at 07:30; Stop 05/04/21 at 13:29; Status DC Albumin Human 200 ml @ 200 mls/hr 1X PRN PRN IV Hypotension Last administered on 05/04/21at 10:46; Start 05/04/21 at 07:30; Stop 05/04/21 at 13:29; Status DC Sodium Chloride (Normal Saline Flush) 10 ml 1X PRN PRN IV AP catheter pack; Start 05/04/21 at 07:30; Stop 05/05/21 at 07:29; Status DC Sodium Chloride (Normal Saline Flush) 10 ml 1X PRN PRN IV [employer]ER catheter pack; Start 05/04/21 at 07:30; Stop 05/05/21 at 07:29; Status DC Sodium Chloride 1,000 ml @ 400 mls/hr Q2H30M PRN IV PATENCY; Start 05/04/21 at 07:30; Stop 05/04/21 at 19:29; Status DC Info (PHARMACY MONITORING -- do not chart) 1 each PRN DAILY PRN MC SEE COMMENTS; Start 05/04/21 at 07:30; Status UNV Info (PHARMACY MONITORING -- do not chart) 1 each PRN DAILY PRN MC SEE COMMENTS; Start 05/04/21 at 07:30; Stop 05/07/21 at 08:47; Status DC Dexmedetomidine HCl 400 mcg/ Sodium Chloride 100 ml @ 0 mls/hr CONT PRN IV PER PROTOCOL Last administered on 05/07/21at 12:09; Start 05/04/21 at 10:30 Cefepime HCl (Maxipime) 1 gm Q24H IVP Last administered on 05/06/21at 16:13; Start 05/04/21 at 16:00 Daptomycin 600 mg/ Sodium Chloride 50 ml @ 100 mls/hr Q48H IV Last administered on 05/04/21at 15:24; Start 05/04/21 at 15:00; Stop 05/06/21 at 08:07; Status DC Potassium Chloride/Water 100 ml @ 100 mls/hr 1X ONCE IV Last administered on 05/06/21at 09:14; Start 05/06/21 at 08:30; Stop 05/06/21 at 09:29; Status DC Nicardipine HCl 50 mg/Sodium Chloride 250 ml @ 25 mls/hr CONT PRN IV SEE I/O RECORD Last administered on 05/07/21at 06:56; Start 05/06/21 at 18:45 Sodium Chloride 1,000 ml @ 1,000 mls/hr Q1H PRN IV hypotension; Start 05/07/21 at 08:45; Stop 05/07/21 at 14:44; Status DC Albumin Human 200 ml @ 200 mls/hr 1X PRN PRN IV Hypotension Last administered on 05/07/21at 11:41; Start 05/07/21 at 08:45; Stop 05/07/21 at 14:44; Status DC Sodium Chloride 1,000 ml @ 400 mls/hr Q2H30M PRN IV PATENCY; Start 05/07/21 at 08:45; Stop 05/07/21 at 20:44 Info (PHARMACY MONITORING -- do not chart) 1 each PRN DAILY PRN MC SEE COMMENTS; Start 05/07/21 at 08:45; Status UNV Info (PHARMACY MONITORING -- do not chart) 1 each PRN DAILY PRN MC SEE COMMENTS; Start 05/07/21 at 08:45 Albumin Human 100 ml @ 100 mls/hr 1X ONCE IV ; Start 05/07/21 at 11:45; Stop 05/07/21 at 12:44; Status DC Active Scripts Active Glyburide 2.5 Mg Tablet 1 Tab PO DAILY 14 Days Polyethylene Glycol 3350 17 Gm Powd.pack 17 Gm PO DAILY 14 Days Dok (Docusate Sodium) 100 Mg Capsule 100 Mg PO PRN DAILY PRN 30 Days Bisacodyl 5 Mg Tablet.dr 5 Mg PO PRN DAILY PRN 14 Days Acetaminophen 325 Mg Tablet 650 Mg PO PRN Q4HRS PRN 14 Days Aspirin Ec (Aspirin) 81 Mg Tablet.dr 81 Mg PO DAILYWBKFT 30 Days Hydralazine Hcl 25 Mg Tablet 25 Mg PO QID 30 Days Reported Fenofibrate 54 Mg Tablet 1 Tab PO DAILY Potassium Chloride (Potassium Chloride) 20 Meq Tablet.er 20 Meq PO DAILY Coreg (Carvedilol) 12.5 Mg Tablet 37.5 Mg PO BIDWMEALS Rosuvastatin Calcium 40 Mg Tablet 40 Mg PO QHS Gabapentin (Gabapentin) 100 Mg Capsule 200 Mg PO BID Montelukast Sodium Tablet (Montelukast Sodium) 10 Mg Tablet 10 Mg PO HS Protonix (Pantoprazole Sodium) 20 Mg Tablet.dr 2 Tab PO DAILY Amlodipine Besylate 5 Mg Tablet 5 Mg PO DAILY Furosemide 40 Mg Tablet 1 Tab PO DAILY Proair Hfa Inhaler (Albuterol Sulfate) 8.5 Gm Hfa.aer.ad 2 Puff IH PRN Q4-6HRS PRN 21 Days Advair 100-50 Diskus (Fluticasone/Salmeterol) 1 Each Disk.w.dev 1 Puff IH BID Vitals/I & O Vital Sign - Last 24 Hours 05/06/21 05/06/21 05/06/21 05/06/21 16:16 16:17 17:17 17:18 Temp 98.3 98.3 Pulse 59 54 54 Resp 20 20 B/P (MAP) 193/83 (119) 197/88 (124) 197/88 Pulse Ox 100 100 O2 Delivery Ventilator Mechanical Ventilator Ventilator 05/06/21 05/06/21 05/06/21 05/06/21 17:19 17:23 18:14 19:00 Pulse 54 54 54 Resp 20 20 B/P (MAP) 197/88 166/90 (115) 198/84 (122) Pulse Ox 100 100 100 O2 Delivery Ventilator Ventilator Ventilator 05/06/21 05/06/21 05/06/21 05/06/21 19:32 20:00 20:00 20:05 Temp 98.3 98.3 Pulse 52 Resp 20 20 B/P (MAP) 206/90 (128) Pulse Ox 99 100 100 O2 Delivery Ventilator Ventilator Mechanical Ventilator Ventilator 05/06/21 05/06/21 05/06/21 05/07/21 21:00 22:00 23:00 00:00 Temp 98.4 98.4 Pulse 52 50 48 48 Resp 20 16 17 16 B/P (MAP) 169/71 (103) 140/62 (88) 140/64 (89) 138/58 (84) Pulse Ox 100 100 100 100 O2 Delivery Ventilator Ventilator Ventilator Ventilator 05/07/21 05/07/21 05/07/21 05/07/21 00:00 00:00 00:15 01:00 Pulse 46 56 Resp 17 B/P (MAP) 144/59 (87) Pulse Ox 100 100 O2 Delivery Mechanical Ventilator Ventilator Ventilator 05/07/21 05/07/21 05/07/21 05/07/21 02:00 02:15 02:54 03:00 Pulse 48 47 Resp 16 20 17 B/P (MAP) 149/69 (95) 147/72 (97) Pulse Ox 100 98 100 99 O2 Delivery Ventilator Ventilator Ventilator Ventilator 05/07/21 05/07/21 05/07/21 05/07/21 03:24 04:00 04:00 05:00 Temp 97.5 97.5 Pulse 50 46 Resp 20 17 16 B/P (MAP) 145/60 (88) 148/70 (96) Pulse Ox 99 100 100 O2 Delivery Ventilator Ventilator Mechanical Ventilator Ventilator 05/07/21 05/07/21 05/07/21 05/07/21 05:10 06:00 06:00 07:23 Pulse 58 47 47 Resp 20 20 B/P (MAP) 140/69 (92) 160/57 (91) Pulse Ox 100 100 100 O2 Delivery Ventilator Ventilator Ventilator 05/07/21 05/07/21 05/07/21 05/07/21 07:45 08:05 08:06 09:07 Temp 97.5 97.5 Pulse 52 52 Resp 20 20 B/P (MAP) 147/63 (91) 148/58 (88) Pulse Ox 99 99 99 O2 Delivery Ventilator Ventilator Mechanical Ventilator Ventilator 05/07/21 05/07/21 05/07/21 05/07/21 10:23 10:53 10:55 11:23 Pulse 67 82 Resp 20 20 20 20 B/P (MAP) 106/52 (70) 165/95 (118) Pulse Ox 98 98 91 97 O2 Delivery Ventilator Ventilator Ventilator Ventilator 05/07/21 05/07/21 05/07/21 05/07/21 11:39 11:40 11:59 12:43 Temp 97.9 97.9 Pulse 76 76 Resp 22 B/P (MAP) 123/56 (78) 150/89 Pulse Ox 100 97 O2 Delivery Mechanical Ventilator Ventilator Ventilator 05/07/21 05/07/21 05/07/21 05/07/21 12:44 13:12 14:00 15:03 Pulse 76 83 59 59 Resp 20 20 20 B/P (MAP) 123/56 181/86 (117) 140/58 (85) 146/56 (86) Pulse Ox 91 96 98 O2 Delivery Ventilator Ventilator Ventilator 05/07/21 15:51 O2 Delivery Mechanical Ventilator Intake and Output 05/06/21 05/06/21 05/07/21 15:00 23:00 07:00 Intake Total 520 ml 520 ml 2381 ml Output Total 800 ml 905 ml 1150 ml Balance -280 ml -385 ml 1231 ml Justifications for Admission General Conditions Altered mental status?: Yes Justification of admission: Patient has tachycardia (> 100 beats per minute) or hypotension (SBP < 90 mm Hg) leading to inadequate systemic perfusion as indicated by severe/persistent altered mental status. Other Justification ILDA VIDAL RODRIGUEZ MD May 07, 2021 15:57
[2021-05-07] MEDS ORDERED: MINERAL OIL/PETROLATUM,WHITE OPHTH OINT 3.5GM TUBE. OU PRN (16:00)
[2021-05-07] MEDS: CEFEPIME HCL IV Push 1 GM VIAL. IVP SCH (17:20)
[2021-05-07] MEDS: MONTELUKAST SODIUM 10 MG TABLET. PO SCH (20:27)
[2021-05-07] MEDS: INSULIN GLARGINE SYRINGE. SQ SCH (20:27)
[2021-05-07] MEDS: ATORVASTATIN CALCIUM 40 MG TABLET. PO SCH (20:27)
[2021-05-08] VITALS (24 sets, daily range): BP systolic 91–154; BP diastolic 42–84
[2021-05-08] MEDS: INSULIN LISPRO 300 UNITS/3 ML VIAL. SQ SCH ×4 (00:06→18:18)
[2021-05-08] MEDS: PROPOFOL 100 ML IV PRN ×7 (01:42→21:29)
[2021-05-08] MEDS: DEXMEDETOMIDINE 400 MCG in IV NORMAL SALINE 100ML 96 ML IV PRN ×2 (02:40→17:50)
[2021-05-08] MEDS: METOPROLOL IV PUSH 5 MG/5 ML VIAL. IVP SCH ×3 (05:36→18:09)
[2021-05-08] MEDS: FUROSEMIDE 40 MG/4 ML VIAL. IVP SCH ×3 (05:36→21:25)
[2021-05-08] MEDS: HEPARIN for SUB-Q USE 5,000 UNIT/ML VIAL. SQ SCH ×3 (05:37→21:27)
[2021-05-08 06:43] LABS: BASO % 0 % (0-3); EOS # 0.2 x10^3/uL (0.0-0.7); EOS % 1 % (0-3); HEMATOCRIT 24.6 % (39.0-53.0); HEMOGLOBIN 7.8 g/dL (13.0-17.5); LYMPH # 1.8 x10^3/uL (1.0-4.8); LYMPH % 9 % (24-48); MEAN CORPUSCULAR HEMOGLOBIN 26 pg (25-35); MEAN CORPUSCULAR HGB CONC 32 g/dL (31-37); MEAN CORPUSCULAR VOLUME 82 fL (79-100); MONO # 1.7 x10^3/uL (0.0-1.1); MONO % 9 % (0-9); NEUT # 15.2 x10^3/uL (1.8-7.7); NEUT % 80 % (31-73); PLATELET COUNT 358 x10^3/uL (140-400)
[2021-05-08 06:53] LABS: CALCIUM 8.3 mg/dL (8.5-10.1); CREATININE 2.5 mg/dL (0.7-1.3); GFR 30.7; POTASSIUM 3.3 mmol/L (3.5-5.1)
--- NOTE | 2021-05-08 07:09 | PDOC ---
Infectious Disease Note Subjective Subjective Patient intubated/sedated ROS ROS No nausea vomiting diarrhea Vital Sign Vital Signs Vital Signs Date Time Temp Pulse Resp B/P (MAP) Pulse Ox O2 Delivery O2 Flow Rate FiO2 05/08/21 06:00 63 20 143/57 (85) 95 Ventilator 05/08/21 04:00 99.7 99.7 Physical Exam PHYSICAL EXAM GENERAL: Well-developed and well-nourished male, intubated, sedated. HEENT: Normocephalic, atraumatic, and anicteric. ETT and OGT present. NECK: Right IJ removed, right dialysis catheter present clean HEART: S1, S2. LUNGS: Decreased breath sounds. ABDOMEN: Soft, obese, bowel sounds present. GENITOURINARY: Nieves in place. EXTREMITIES: Edema present. DERMATOLOGIC: Warm, dry, no generalized rash. NEUROLOGIC: Intubated. PSYCHIATRIC: Unable to obtain. Labs Lab Laboratory Tests Test 05/07/21 08:00 05/07/21 16:13 05/07/21 19:51 05/07/21 23:55 O2 Saturation 93 % (92-99) Arterial Blood pH 7.47 (7.35-7.45) Arterial Blood pCO2 at Patient Temp 34 mmHg (35-46) Arterial Blood pO2 at Patient Temp 69 mmHg (65-108) Arterial Blood HCO3 24 mmol/L (21-28) Arterial Blood Base Excess 1 mmol/L (-3-3) FiO2 40 Glucose (Fingerstick) 184 mg/dL (70-99) 181 mg/dL (70-99) 197 mg/dL (70-99) Test 05/08/21 05:45 05/08/21 06:00 Glucose (Fingerstick) 198 mg/dL (70-99) White Blood Count 19.0 x10^3/uL (4.0-11.0) Red Blood Count 3.00 x10^6/uL (4.30-5.70) Hemoglobin 7.8 g/dL (13.0-17.5) Hematocrit 24.6 % (39.0-53.0) Mean Corpuscular Volume 82 fL (79-100) Mean Corpuscular Hemoglobin 26 pg (25-35) Mean Corpuscular Hemoglobin Concent 32 g/dL (31-37) Red Cell Distribution Width 16.0 % (11.5-14.5) Platelet Count 358 x10^3/uL (140-400) Neutrophils (%) (Auto) 80 % (31-73) Lymphocytes (%) (Auto) 9 % (24-48) Monocytes (%) (Auto) 9 % (0-9) Eosinophils (%) (Auto) 1 % (0-3) Basophils (%) (Auto) 0 % (0-3) Neutrophils # (Auto) 15.2 x10^3/uL (1.8-7.7) Lymphocytes # (Auto) 1.8 x10^3/uL (1.0-4.8) Monocytes # (Auto) 1.7 x10^3/uL (0.0-1.1) Eosinophils # (Auto) 0.2 x10^3/uL (0.0-0.7) Basophils # (Auto) 0.0 x10^3/uL (0.0-0.2) Sodium Level 131 mmol/L (136-145) Potassium Level 3.3 mmol/L (3.5-5.1) Chloride Level 96 mmol/L (98-107) Carbon Dioxide Level 27 mmol/L (21-32) Anion Gap 8 (6-14) Blood Urea Nitrogen 41 mg/dL (8-26) Creatinine 2.5 mg/dL (0.7-1.3) Estimated GFR (Cockcroft-Gault) 30.7 Glucose Level 205 mg/dL (70-99) Calcium Level 8.3 mg/dL (8.5-10.1) Micro Microbiology 05/04/21 Gram Stain Evaluation - Final, Resulted 05/04/21 Respiratory Culture - Preliminary, Resulted 05/04/21 Gram Stain - Final, Resulted 05/04/21 Aerobic Culture - Preliminary, Resulted 05/04/21 Blood Culture - Preliminary, Resulted NO GROWTH AFTER 2 DAYS Objective Assessment 1. Febrile illness could be healthcare-associated infection 2. Leukocytosis, on steroids. 3. COVID-19 pneumonia. 4. Acute hypoxic respiratory failure status post intubation. 5. Congestive heart failure, acute on chronic. 6. Acute kidney injury on chronic kidney disease on hemodialysis. 7. Diabetes mellitus 2. 8. Atrial fibrillation. 9. Anemia. 10. Protein-calorie malnutrition. 11. Hypertention Plan Plan of Care 1. Continue cefepime , 2. Follow-up labs and cultures 3. Change central line and send cath tip for cultures. 4. Check C. difficile PCR 5. Continue supportive care. 6. Critically ill. Discussed with nursing staff JAD RIVERO MD May 08, 2021 07:09
[2021-05-08 08:15] LABS: % BANDS 1 % (0-9); % EOS 2 % (0-5); % LYMPHS 10 % (24-48); % MONOS 3 % (0-10); % SEGS 84 % (35-66); PLT ESTIMATE ADEQUATE (ADEQUATE)
[2021-05-08 08:30] LABS: BASE EXCESS ABG -1 mmol/L (-3-3); HCO3 ABG 24 mmol/L (21-28); PCO2 ABG 40 mmHg (35-46); PO2 ABG 62 mmHg (65-108); SAT O2 ABG 89 % (92-99)
--- NOTE | 2021-05-08 08:37 | PDOC ---
PROGRESS NOTES Date of Service: DATE: 05/08/21 TIME: 08:37 Chief Complaint Chief Complaint Respiratory failure requiring intubation COVID-19 Acute IN A. fib SIRS Hypertension with hypertensive urgency Hyperlipidemia CKD Diabetes History of bilateral subclavian stenosis History of marijuana use Severe protein calorie malnutrition History of Present Illness History of Present Illness 05/08/2021 Currently on 40%, 5 of PEEP now on cardene gtt Patient seen and examined in the COVID-19 ICU remains mechanically ventilated ILDA on CKD - ATN 2/2 sepsis/ Hypotension,UOP good,on IV Lasix ; requiring dialysis, AC/20/500/40 percent with 5 of PEEP Sedated with propofol Dex and fentanyl Chart reviewed Discussed with RN He remains critically ill intubated/sedated cont cardene gtt not able to tolerate PS trial 05/06/21 JONES FISHMAN MD,BRIAN AVILA,ADELSO POTTER ORDERED: BCULT Procedure Result BLOOD CULTURE Preliminary NO GROWTH AFTER 2 DAYS BLOOD CULTURE Preliminary NO GROWTH AFTER 4 DAYS 33 min cc time 05/07/2021 Patient seen and examined in the COVID-19 ICU He remains mechanically ventilated ILDA on CKD - ATN 2/2 sepsis/ Hypotension,UOP good,on IV Lasix ; requiring dialysis, AC/20/500/40 percent with 5 of PEEP Sedated with propofol Dex and fentanyl Chart reviewed Discussed with RN He remains critically ill intubated/sedated cont cardene gtt not able to tolerate PS trial 05/06/21 JONES FISHMAN MD,BRIAN AVILA,ADELSO POTTER ORDERED: BCULT Procedure Result BLOOD CULTURE Preliminary NO GROWTH AFTER 2 DAYS 36 min cc time 05/06/2021 Patient seen and examined in the [place] [address] ICU He remains mechanically ventilated AC/20/500/40 percent with 5 of PEEP Sedated with propofol Dex and fentanyl Chart reviewed Discussed with RN He remains critically ill 05/05/2020 Patient seen and examined in the [facility] [address] ICU He remains on the vent AC/20/500/40 percent with 5 of PEEP Discussed with RN Chart reviewed Has SCDs in place Nieves to bedside drainage He remains critically ill 05/04/2021 Patient seen and examined in the [facility] [address] ICU Still intubated Sedated with propofol and fentanyl AC/20/500/70 percent with 5 of PEEP On dialysis currently Has SCDs in Nieves to bedside drainage Discussed with RN Chart reviewed 05/03/2021 Patient seen and examined in the [facility] [address] ICU He is still intubated AC/20/500/70 percent with 5 of PEEP Has SCDs in place Nieves to bedside drainage Sedated with fentanyl Versed and propofol Discussed are Chart reviewed Remains critically ill 05/02/2021 Patient seen and examined in the [facility] [address] ICU He is sedated with propofol fentanyl and Versed Ventilator settings as follow AC/20/500/40 percent with 5 of PEEP Has Nieves to bedside drainage Chart reviewed Discussed with RN He remains critically ill 05/01/2021 Patient seen and examined in the [facility] [address] ICU He is still intubated AC/20/500/40 percent with 5 of PEEP In A. fib Sedated with propofol fentanyl and Versed Has a heparin drip Missy with RN Chart reviewed He remains critically 04/30/2020 Patient seen and examined in the [facility] [address] ICU He remains on the vent AC/20/500/40 5% with 5 PEEP Currently on dialysis Has OG feeds running Has a Nieves to bedside drainage Sedated with propofol and fentanyl Reviewed chart Discussed with RN He remains critically ill Mr Cunha is a 75 yo male w/ PMHx CAD, HTN, Hyperlipidemia, subclavian steel syndrome, subclavian stenosis s/p left subclavian sent placement complicated by retroperitoneal hematoma s/p evacuation in 08/2015), asthma, BART, CKD, DM2 who presented from home with home health care noted that he was short of breath and valverde with O2 saturations less than 89% as low as 84% not improved with nasal cannulated oxygen placed on CPAP and brought to ED for further care. He was just discharged from the hospital a week ago on April 19, 2021 for abdominal pain and was going for further cardiac testing with outpatient stress testing scheduled on May 28, 2021. Had echocardiogram April 17, 2021 with normal-appearing EF with moderate concentric LVH no significant valvular abnormalities. WBC 20, Hb 10.7, platelets 268, NA 140, K3.8, BUN 21, CR 2.9, glucose 162, albumin 3, troponin I 1.372, NT proBNP 33,318. EKG appears sinus tachycardia rate of 105 bpm with multiple PACs small ST depressions in lead II and V5. TWI in V6. Chest radiograph with diffuse interstitial and alveolar opacities and ET tube 5.8 cm above the leilani. Due to worsening respiratory status ED physician elected to intubate patient. Seen postintubation. Blood pressure little low after propofol bolus, but improved. Significant white frothy sputum per ET tube. Admitted to ICU for further care 04/29/2021: Afebrile, remains on vent at FiO2 45%, PEEP 5. WBC 20.4. Hemodialysis per nephrology. We will continue treatment with empiric antibiotics, remdesivir, and steroids. Continue heparin infusion and supportive care. Critical care time 30 minutes reviewing chart, review labs, review imaging, discussion with RN. 04/28/2021: Afebrile. FiO2 50%, PEEP 5. Nontunneled HD catheter placed yesterday due to worsening kidney function; eGFR 16 (CKD4). Chest x-ray showed unchanged interstitial opacities. Continue empiric antibiotics, steroids, and remdesivir. Continue heparin infusion, and continue to follow cardiology recommendations on new diagnosis of A. fib. Critical care time 30 minutes reviewing chart, review labs, review imaging, discussion with RN. 04/27/2021: Afebrile. On vent with FiO2 50%, PEEP 5. Troponin 2.8 yesterday; probable type II, demand ischemia. New onset A. fib. Continue heparin drip and as needed digoxin, per cardiology. Continue treatment with remdesivir, steroids, and prophylactic antibiotics. CBG 323 this morning; will add basal insulin. Critical care 30 minutes spent reviewing labs, reviewing imaging, reviewing charts, and discussion with RN. 04/26/2021: COVID-19 positive. Febrile overnight that was managed with cooling blankets. On vent with FiO2 50%, PEEP 5. Per cardiology, elevated troponins likely secondary to demand ischemia; continue heparin drip per cardiology. Maintain fluid balance and avoid nephrotoxins. Continue treatment with remdesivir, steroids, and prophylactic antibiotics. 30 minutes critical care time spent reviewing charts, reviewing labs, reviewing imaging, and discussion with RN. 04/25/2021: On vent FiO2 50, PEEP 5. Febrile, T-max 103.3. Patient was initiated on cooling blankets. Procalcitonin 0.13. Continue coverage for hospital-acquired pneumonia with cefepime. MRSA PCR pending. Critical care time 30 minutes spent reviewing charts, reviewing labs, review of imaging, discussion with RN. Vitals Vitals Vital Signs Date Time Temp Pulse Resp B/P (MAP) Pulse Ox O2 Delivery O2 Flow Rate FiO2 05/08/21 07:18 20 05/08/21 06:00 63 143/57 (85) 95 Ventilator 05/08/21 04:00 99.7 99.7 Physical Exam Physical Exam GENERAL: Well-developed and well-nourished male, intubated, sedated. HEENT: Normocephalic, atraumatic, and anicteric. ETT and OGT present. NECK: Right IJ removed, right dialysis catheter present clean HEART: S1, S2. LUNGS: Decreased breath sounds. ABDOMEN: Soft, obese, bowel sounds present. GENITOURINARY: Nieves in place. EXTREMITIES: Edema present. DERMATOLOGIC: Warm, dry, no generalized rash. NEUROLOGIC: Intubated. PSYCHIATRIC: Unable to obtain. General: Other (Intubated sedated) Heart: Other (Tachycardic) Abdomen: Soft, Other (obese) Extremities: No cyanosis, Other (trace LE edema ) Skin: No rashes, No breakdown, No significant lesion Labs LABS JONES FISHMAN MD,ADELSO DASILVA MD, MD ORDERED: BCULT Procedure Result BLOOD CULTURE Preliminary NO GROWTH AFTER 4 DAYS Laboratory Tests Test 05/07/21 16:13 05/07/21 19:51 05/07/21 23:55 05/08/21 05:45 Glucose (Fingerstick) 184 mg/dL (70-99) 181 mg/dL (70-99) 197 mg/dL (70-99) 198 mg/dL (70-99) Test 05/08/21 06:00 White Blood Count 19.0 x10^3/uL (4.0-11.0) Red Blood Count 3.00 x10^6/uL (4.30-5.70) Hemoglobin 7.8 g/dL (13.0-17.5) Hematocrit 24.6 % (39.0-53.0) Mean Corpuscular Volume 82 fL (79-100) Mean Corpuscular Hemoglobin 26 pg (25-35) Mean Corpuscular Hemoglobin Concent 32 g/dL (31-37) Red Cell Distribution Width 16.0 % (11.5-14.5) Platelet Count 358 x10^3/uL (140-400) Neutrophils (%) (Auto) 80 % (31-73) Lymphocytes (%) (Auto) 9 % (24-48) Monocytes (%) (Auto) 9 % (0-9) Eosinophils (%) (Auto) 1 % (0-3) Basophils (%) (Auto) 0 % (0-3) Neutrophils # (Auto) 15.2 x10^3/uL (1.8-7.7) Lymphocytes # (Auto) 1.8 x10^3/uL (1.0-4.8) Monocytes # (Auto) 1.7 x10^3/uL (0.0-1.1) Eosinophils # (Auto) 0.2 x10^3/uL (0.0-0.7) Basophils # (Auto) 0.0 x10^3/uL (0.0-0.2) Segmented Neutrophils % 84 % (35-66) Band Neutrophils % 1 % (0-9) Lymphocytes % 10 % (24-48) Monocytes % 3 % (0-10) Eosinophils % 2 % (0-5) Platelet Estimate Adequate (ADEQUATE) Sodium Level 131 mmol/L (136-145) Potassium Level 3.3 mmol/L (3.5-5.1) Chloride Level 96 mmol/L (98-107) Carbon Dioxide Level 27 mmol/L (21-32) Anion Gap 8 (6-14) Blood Urea Nitrogen 41 mg/dL (8-26) Creatinine 2.5 mg/dL (0.7-1.3) Estimated GFR (Cockcroft-Gault) 30.7 Glucose Level 205 mg/dL (70-99) Calcium Level 8.3 mg/dL (8.5-10.1) Assessment and Plan Assessmemt and Plan Problems Medical Problems: (1) Elevated troponin Status: Acute (2) Person under investigation for COVID-19 Status: Acute (3) Pulmonary edema Status: Acute Comment Review of Relevant I have reviewed the following items juanita (where applicable) has been applied. Labs Laboratory Tests Test 05/06/21 11:46 05/06/21 12:00 05/06/21 17:20 05/07/21 00:53 Glucose (Fingerstick) 148 mg/dL (70-99) 219 mg/dL (70-99) 215 mg/dL (70-99) Clostridium difficile Toxin (PCR) Negative (NEGATIVE) Test 05/07/21 06:25 05/07/21 06:32 05/07/21 08:00 05/07/21 16:13 Sodium Level 133 mmol/L (136-145) Potassium Level 3.3 mmol/L (3.5-5.1) Chloride Level 95 mmol/L (98-107) Carbon Dioxide Level 27 mmol/L (21-32) Anion Gap 11 (6-14) Blood Urea Nitrogen 62 mg/dL (8-26) Creatinine 3.0 mg/dL (0.7-1.3) Estimated GFR (Cockcroft-Gault) 24.9 BUN/Creatinine Ratio 21 (6-20) Glucose Level 197 mg/dL (70-99) Calcium Level 8.5 mg/dL (8.5-10.1) Total Bilirubin 0.4 mg/dL (0.2-1.0) Aspartate Amino Transf (AST/SGOT) 46 U/L (15-37) Alanine Aminotransferase (ALT/SGPT) 18 U/L (16-63) Alkaline Phosphatase 64 U/L (46-116) Total Protein 5.6 g/dL (6.4-8.2) Albumin 1.5 g/dL (3.4-5.0) Albumin/Globulin Ratio 0.4 (1.0-1.7) Glucose (Fingerstick) 199 mg/dL (70-99) 184 mg/dL (70-99) O2 Saturation 93 % (92-99) Arterial Blood pH 7.47 (7.35-7.45) Arterial Blood pCO2 at Patient Temp 34 mmHg (35-46) Arterial Blood pO2 at Patient Temp 69 mmHg (65-108) Arterial Blood HCO3 24 mmol/L (21-28) Arterial Blood Base Excess 1 mmol/L (-3-3) FiO2 40 Test 05/07/21 19:51 05/07/21 23:55 05/08/21 05:45 05/08/21 06:00 Glucose (Fingerstick) 181 mg/dL (70-99) 197 mg/dL (70-99) 198 mg/dL (70-99) White Blood Count 19.0 x10^3/uL (4.0-11.0) Red Blood Count 3.00 x10^6/uL (4.30-5.70) Hemoglobin 7.8 g/dL (13.0-17.5) Hematocrit 24.6 % (39.0-53.0) Mean Corpuscular Volume 82 fL (79-100) Mean Corpuscular Hemoglobin 26 pg (25-35) Mean Corpuscular Hemoglobin Concent 32 g/dL (31-37) Red Cell Distribution Width 16.0 % (11.5-14.5) Platelet Count 358 x10^3/uL (140-400) Neutrophils (%) (Auto) 80 % (31-73) Lymphocytes (%) (Auto) 9 % (24-48) Monocytes (%) (Auto) 9 % (0-9) Eosinophils (%) (Auto) 1 % (0-3) Basophils (%) (Auto) 0 % (0-3) Neutrophils # (Auto) 15.2 x10^3/uL (1.8-7.7) Lymphocytes # (Auto) 1.8 x10^3/uL (1.0-4.8) Monocytes # (Auto) 1.7 x10^3/uL (0.0-1.1) Eosinophils # (Auto) 0.2 x10^3/uL (0.0-0.7) Basophils # (Auto) 0.0 x10^3/uL (0.0-0.2) Segmented Neutrophils % 84 % (35-66) Band Neutrophils % 1 % (0-9) Lymphocytes % 10 % (24-48) Monocytes % 3 % (0-10) Eosinophils % 2 % (0-5) Platelet Estimate Adequate (ADEQUATE) Sodium Level 131 mmol/L (136-145) Potassium Level 3.3 mmol/L (3.5-5.1) Chloride Level 96 mmol/L (98-107) Carbon Dioxide Level 27 mmol/L (21-32) Anion Gap 8 (6-14) Blood Urea Nitrogen 41 mg/dL (8-26) Creatinine 2.5 mg/dL (0.7-1.3) Estimated GFR (Cockcroft-Gault) 30.7 Glucose Level 205 mg/dL (70-99) Calcium Level 8.3 mg/dL (8.5-10.1) Laboratory Tests Test 05/07/21 16:13 05/07/21 19:51 05/07/21 23:55 05/08/21 05:45 Glucose (Fingerstick) 184 mg/dL (70-99) 181 mg/dL (70-99) 197 mg/dL (70-99) 198 mg/dL (70-99) Test 05/08/21 06:00 White Blood Count 19.0 x10^3/uL (4.0-11.0) Red Blood Count 3.00 x10^6/uL (4.30-5.70) Hemoglobin 7.8 g/dL (13.0-17.5) Hematocrit 24.6 % (39.0-53.0) Mean Corpuscular Volume 82 fL (79-100) Mean Corpuscular Hemoglobin 26 pg (25-35) Mean Corpuscular Hemoglobin Concent 32 g/dL (31-37) Red Cell Distribution Width 16.0 % (11.5-14.5) Platelet Count 358 x10^3/uL (140-400) Neutrophils (%) (Auto) 80 % (31-73) Lymphocytes (%) (Auto) 9 % (24-48) Monocytes (%) (Auto) 9 % (0-9) Eosinophils (%) (Auto) 1 % (0-3) Basophils (%) (Auto) 0 % (0-3) Neutrophils # (Auto) 15.2 x10^3/uL (1.8-7.7) Lymphocytes # (Auto) 1.8 x10^3/uL (1.0-4.8) Monocytes # (Auto) 1.7 x10^3/uL (0.0-1.1) Eosinophils # (Auto) 0.2 x10^3/uL (0.0-0.7) Basophils # (Auto) 0.0 x10^3/uL (0.0-0.2) Segmented Neutrophils % 84 % (35-66) Band Neutrophils % 1 % (0-9) Lymphocytes % 10 % (24-48) Monocytes % 3 % (0-10) Eosinophils % 2 % (0-5) Platelet Estimate Adequate (ADEQUATE) Sodium Level 131 mmol/L (136-145) Potassium Level 3.3 mmol/L (3.5-5.1) Chloride Level 96 mmol/L (98-107) Carbon Dioxide Level 27 mmol/L (21-32) Anion Gap 8 (6-14) Blood Urea Nitrogen 41 mg/dL (8-26) Creatinine 2.5 mg/dL (0.7-1.3) Estimated GFR (Cockcroft-Gault) 30.7 Glucose Level 205 mg/dL (70-99) Calcium Level 8.3 mg/dL (8.5-10.1) Microbiology 05/04/21 Gram Stain Evaluation - Final, Complete 05/04/21 Respiratory Culture - Final, Complete 05/04/21 Gram Stain - Final, Complete 05/04/21 Aerobic Culture - Final, Complete 05/04/21 Blood Culture - Preliminary, Resulted NO GROWTH AFTER 3 DAYS Medications Current Medications Propofol 100 ml @ As Directed STK-MED ONCE IV ; Start 04/24/21 at 12:36; Stop 04/24/21 at 12:36; Status DC Etomidate (Amidate) 20 mg STK-MED ONCE IV ; Start 04/24/21 at 13:38; Stop 04/24/21 at 13:38; Status DC Succinylcholine Chloride (Anectine) 200 mg STK-MED ONCE .ROUTE ; Start 04/24/21 at 13:38; Stop 04/24/21 at 13:38; Status DC Fentanyl Citrate (Fentanyl 2ml Vial) 50 mcg PRN Q1HR PRN IV PAIN; Start 04/24/21 at 14:00; Stop 04/24/21 at 14:14; Status DC Acetaminophen (Tylenol) 650 mg PRN Q6HRS PRN PO Headaches, Temp > 101.5' Last administered on 04/25/21at 17:31; Start 04/24/21 at 14:00 Ondansetron HCl (Zofran) 4 mg PRN Q6HRS PRN IVP NAUSEA/VOMITING; Start 04/24/21 at 14:00; Status Cancel Sodium Chloride (Normal Saline Flush) 3 ml QSHIFT PRN IV AFTER MEDS AND BLOOD DRAWS; Start 04/24/21 at 14:00 Fentanyl Citrate (Fentanyl 2ml Vial) 25 mcg PRN Q1HR PRN IV SEVERE PAIN 7-10; Start 04/24/21 at 14:00; Stop 04/24/21 at 14:14; Status DC Bisacodyl (Dulcolax Supp) 10 mg PRN DAILY PRN VA CONSTIPATION; Start 04/24/21 at 14:00 Fentanyl Citrate 30 ml @ 0 mls/hr CONT PRN IV SEE PROTOCOL; Start 04/24/21 at 14:00; Stop 04/24/21 at 14:12; Status DC Propofol 100 ml @ 0 mls/hr CONT PRN IV PER PROTOCOL Last administered on 04/24/21at 15:12; Start 04/24/21 at 14:00; Stop 04/24/21 at 15:19; Status DC Chlorhexidine Gluconate (Peridex) 15 ml BID MM Last administered on 04/24/21at 20:49; Start 04/24/21 at 21:00; Stop 04/25/21 at 11:19; Status DC Acetaminophen (Tylenol) 650 mg PRN Q6HRS PRN PO Headaches, Temp > 101.5'; Start 04/24/21 at 14:00; Status Cancel Ondansetron HCl (Zofran) 4 mg PRN Q6HRS PRN IVP NAUSEA/VOMITING; Start 04/24/21 at 14:00 Fentanyl Citrate (Fentanyl 2ml Vial) 25 mcg PRN Q1HR PRN IV SEVERE PAIN 7-10 Last administered on 04/24/21at 16:39; Start 04/24/21 at 14:00 Fentanyl Citrate 30 ml @ 0 mls/hr CONT PRN IV SEE PROTOCOL Last administered on 05/08/21 07:18; Start 04/24/21 at 14:00 Aspirin (Ecotrin) 81 mg DAILYWBKFT PO Last administered on 05/02/21at 07:20; Start 04/25/21 at 08:00; Stop 05/03/21 at 09:56; Status DC Carvedilol (Coreg) 37.5 mg BIDWMEALS PO ; Start 04/24/21 at 17:00; Stop 04/24/21 at 16:17; Status DC Montelukast Sodium (Singulair) 10 mg HS PO Last administered on 05/07/21 20:27; Start 04/24/21 at 21:00 Atorvastatin Calcium (Lipitor) 80 mg QHS PO Last administered on 05/07/21 20:27; Start 04/24/21 at 21:00 Heparin Sodium (Porcine) (Heparin Sodium) 5,000 unit Q8HRS SQ ; Start 04/24/21 at 22:00; Status Cancel Furosemide (Lasix) 40 mg 1X ONCE IVP Last administered on 04/24/21at 16:45; Start 04/24/21 at 15:15; Stop 04/24/21 at 15:19; Status DC Propofol 100 ml @ 0 mls/hr CONT PRN IV PER PROTOCOL Last administered on 05/08/21at 04:36; Start 04/24/21 at 15:30 Carvedilol (Coreg) 3.125 mg BIDWMEALS PO Last administered on 04/25/21at 09:23; Start 04/24/21 at 17:00; Stop 04/25/21 at 15:42; Status DC Cefepime HCl (Maxipime) 2 gm 1X ONCE IVP Last administered on 04/24/21at 18:27; Start 04/24/21 at 16:30; Stop 04/24/21 at 16:31; Status DC Insulin Human Lispro (HumaLOG) 0-9 UNITS Q6HRS SQ Last administered on 05/03/21at 12:24; Start 04/24/21 at 18:00; Stop 05/03/21 at 13:51; Status DC Dextrose (Dextrose 50%-Water Syringe) 12.5 gm PRN Q15MIN PRN IV SEE COMMENTS Last administered on 05/03/21at 04:59; Start 04/24/21 at 16:30; Stop 05/03/21 at 13:54; Status DC Heparin Sodium/ Dextrose 250 ml @ 0 mls/hr CONT PRN IV PER PROTOCOL Last administered on 05/01/21at 05:10; Start 04/24/21 at 16:45; Stop 05/01/21 at 12:32; Status DC Heparin Sodium (Porcine) (Heparin Sodium) 3,200 unit PRN Q6HRS PRN IV FOR UFH LEVEL LESS THAN 0.2 Last administered on 04/24/21at 23:32; Start 04/24/21 at 16:45; Stop 05/01/21 at 12:32; Status DC Cefepime HCl (Maxipime) 1 gm Q12HR IVP Last administered on 04/27/21at 08:09; Start 04/25/21 at 09:00; Stop 04/27/21 at 09:17; Status DC Furosemide (Lasix) 40 mg 1X ONCE IVP ; Start 04/25/21 at 11:30; Stop 04/25/21 at 11:31; Status DC Metoprolol Tartrate (Lopressor Vial) 5 mg 1X ONCE IVP Last administered on 04/25/21at 11:27; Start 04/25/21 at 11:30; Stop 04/25/21 at 11:31; Status DC Info (Anti-Coagulation Monitoring By Pharmacy) 1 each PRN DAILY PRN MC PER PROTOCOL Last administered on 04/26/21at 08:51; Start 04/25/21 at 13:00; Stop 05/02/21 at 07:36; Status DC Digoxin (Lanoxin) 500 mcg 1X ONCE IV Last administered on 04/25/21at 14:52; Start 04/25/21 at 14:45; Stop 04/25/21 at 14:46; Status DC Hydralazine HCl (Apresoline Inj) 10 mg PRN Q4HRS PRN IVP ELEVATED BP, 1ST CHOICE Last administered on 05/04/21at 17:47; Start 04/25/21 at 14:45 Metoprolol Tartrate (Lopressor Vial) 5 mg Q6HRS IVP Last administered on 05/08/21at 05:36; Start 04/25/21 at 18:00 Dexamethasone Sodium Phosphate (Decadron) 6 mg DAILY IVP Last administered on 05/06/21at 08:38; Start 04/25/21 at 17:00; Stop 05/07/21 at 09:18; Status DC Remdesivir 200 mg/ Sodium Chloride 210 ml @ 210 mls/hr 1X ONCE IV Last administered on 04/25/21at 17:09; Start 04/25/21 at 17:30; Stop 04/25/21 at 18:29; Status DC Remdesivir 100 mg/ Sodium Chloride 230 ml @ 460 mls/hr Q24H IV Last administered on 04/29/21at 13:51; Start 04/26/21 at 17:30; Stop 04/29/21 at 17:59; Status DC Midazolam HCl 100 ml @ 0 mls/hr CONT PRN IV SEE PROTOCOL Last administered on 05/02/21at 19:58; Start 04/26/21 at 07:00 Pantoprazole Sodium (PROTONIX VIAL for IV PUSH) 40 mg DAILYAC IVP Last administered on 05/07/21at 12:43; Start 04/26/21 at 09:30 Norepinephrine Bitartrate 8 mg/ Dextrose 258 ml @ 25.349 mls/ hr CONT PRN IV PER PROTOCOL Last administered on 04/26/21at 17:53; Start 04/26/21 at 12:15; Stop 05/02/21 at 20:53; Status DC Digoxin (Lanoxin) 250 mcg 1X ONCE IV Last administered on 04/26/21at 15:02; Start 04/26/21 at 13:00; Stop 04/26/21 at 13:05; Status DC Amiodarone HCl 150 mg/Dextrose 103 ml @ 618 mls/hr 1X ONCE IV Last administered on 04/27/21at 02:30; Start 04/27/21 at 02:30; Stop 04/27/21 at 02:39; Status DC Amiodarone HCl 450 mg/Dextrose 259 ml @ 33 mls/hr CONT PRN IV SEE I/O RECORD; Start 04/27/21 at 02:30; Stop 04/30/21 at 07:56; Status DC Insulin Glargine (Lantus Syringe) 25 unit QHS SQ Last administered on 05/02/21at 21:23; Start 04/27/21 at 21:00; Stop 05/03/21 at 13:45; Status DC Cefepime HCl (Maxipime) 1 gm Q24H IVP Last administered on 05/03/21at 10:02; Start 04/28/21 at 09:30; Stop 05/03/21 at 13:19; Status DC Sodium Bicarbonate (Sodium Bicarb Adult 8.4% Syr) 50 meq 1X ONCE IV Last administered on 04/27/21at 09:50; Start 04/27/21 at 09:45; Stop 04/27/21 at 09:46; Status DC Lidocaine HCl (Buffered Lidocaine 1%) 3 ml STK-MED ONCE .ROUTE ; Start 04/27/21 at 10:57; Stop 04/27/21 at 10:58; Status DC Amiodarone HCl (Cordarone) 200 mg DAILY PO ; Start 04/27/21 at 12:00; Stop 04/27/21 at 12:29; Status DC Lidocaine HCl (Buffered Lidocaine 1%) 3 ml 1X ONCE INJ Last administered on 04/27/21at 11:15; Start 04/27/21 at 11:15; Stop 04/27/21 at 11:16; Status DC Amiodarone HCl (Cordarone) 200 mg DAILY PO Last administered on 05/07/21at 12:44; Start 04/28/21 at 09:00 Sodium Chloride 1,000 ml @ 1,000 mls/hr Q1H PRN IV hypotension; Start 04/28/21 at 11:00; Stop 04/28/21 at 16:59; Status DC Albumin Human 200 ml @ 200 mls/hr 1X PRN PRN IV Hypotension; Start 04/28/21 at 11:00; Stop 04/28/21 at 16:59; Status DC Sodium Chloride (Normal Saline Flush) 10 ml 1X PRN PRN IV AP catheter pack; Start 04/28/21 at 11:00; Stop 04/29/21 at 10:59; Status DC Sodium Chloride (Normal Saline Flush) 10 ml 1X PRN PRN 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; Start 04/28/21 at 11:00; Stop 04/29/21 at 10:59; Status DC Sodium Chloride 1,000 ml @ 400 mls/hr Q2H30M PRN IV PATENCY; Start 04/28/21 at 11:00; Stop 04/28/21 at 22:59; Status DC Info (PHARMACY MONITORING -- do not chart) 1 each PRN DAILY PRN MC SEE COMMENTS; Start 04/28/21 at 11:00; Status UNV Info (PHARMACY MONITORING -- do not chart) 1 each PRN DAILY PRN MC SEE COMMENTS; Start 04/28/21 at 11:00; Stop 04/30/21 at 22:39; Status DC Magnesium Sulfate 50 ml @ 25 mls/hr PRN DAILY PRN IV for Mag < 1.7 on am labs; Start 04/29/21 at 10:45 Vecuronium Topaz (Norcuron Bolus) 6 mg PRN Q6HRS PRN IV VENTILATOR COMPLIANCE; Start 04/30/21 at 11:15 Info (PHARMACY MONITORING -- do not chart) 1 each PRN DAILY PRN MC SEE COMMENTS; Start 04/30/21 at 12:30; Status Cancel Labetalol HCl (Normodyne Iv Push) 20 mg PRN Q2HR PRN IVP HYPERTENSION, 2ND CHOICE Last administered on 05/06/21at 17:19; Start 05/01/21 at 12:30 Heparin Sodium (Porcine) (Heparin Sodium) 5,000 unit Q8HRS SQ Last administered on 05/08/21at 05:37; Start 05/01/21 at 14:00 Furosemide (Lasix) 80 mg 1X ONCE IVP Last administered on 05/02/21at 10:45; Start 05/02/21 at 10:45; Stop 05/02/21 at 10:46; Status DC Furosemide (Lasix) 40 mg Q8HRS IVP Last administered on 05/08/21at 05:36; Start 05/02/21 at 14:00 Sodium Chloride 1,000 ml @ 1,000 mls/hr Q1H PRN IV hypotension; Start 05/02/21 at 11:30; Stop 05/02/21 at 17:29; Status DC Albumin Human 200 ml @ 200 mls/hr 1X PRN PRN IV Hypotension; Start 05/02/21 at 11:30; Stop 05/02/21 at 17:29; Status DC Sodium Chloride (Normal Saline Flush) 10 ml 1X PRN PRN IV AP catheter pack; Start 05/02/21 at 11:30; Stop 05/02/21 at 18:00; Status DC Sodium Chloride (Normal Saline Flush) 10 ml 1X PRN PRN 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; Start 05/02/21 at 11:30; Stop 05/02/21 at 18:00; Status DC Sodium Chloride 1,000 ml @ 400 mls/hr Q2H30M PRN IV PATENCY; Start 05/02/21 at 11:30; Stop 05/02/21 at 23:29; Status DC Info (PHARMACY MONITORING -- do not chart) 1 each PRN DAILY PRN MC SEE COMMENTS; Start 05/02/21 at 11:30; Status UNV Info (PHARMACY MONITORING -- do not chart) 1 each PRN DAILY PRN MC SEE COMMENTS; Start 05/02/21 at 11:30; Status UNV Norepinephrine Bitartrate 8 mg/ Dextrose 258 ml @ 25.852 mls/ hr CONT PRN IV PER PROTOCOL Last administered on 05/02/21at 21:22; Start 05/02/21 at 21:00 Dextrose 1,000 ml @ 50 mls/hr Q20H IV Last administered on 05/03/21at 05:15; Start 05/03/21 at 05:15; Stop 05/03/21 at 13:53; Status DC Aspirin (Aspirin Chewable) 81 mg [id number] PO Last administered on 05/07/21at 12:44; Start 05/03/21 at 10:00 Insulin Glargine (Lantus Syringe) 10 unit QHS SQ Last administered on 05/07/21at 20:27; Start 05/03/21 at 21:00 Insulin Human Lispro (HumaLOG) 0-5 UNITS Q6HRS SQ Last administered on 05/08/21at 05:53; Start 05/03/21 at 18:00 Dextrose (Dextrose 50%-Water Syringe) 12.5 gm PRN Q15MIN PRN IV SEE COMMENTS; Start 05/03/21 at 14:00 Sodium Chloride 1,000 ml @ 1,000 mls/hr Q1H PRN IV hypotension; Start 05/04/21 at 07:30; Stop 05/04/21 at 13:29; Status DC Albumin Human 200 ml @ 200 mls/hr 1X PRN PRN IV Hypotension Last administered on 05/04/21at 10:46; Start 05/04/21 at 07:30; Stop 05/04/21 at 13:29; Status DC Sodium Chloride (Normal Saline Flush) 10 ml 1X PRN PRN IV AP catheter pack; Start 05/04/21 at 07:30; Stop 05/05/21 at 07:29; Status DC Sodium Chloride (Normal Saline Flush) 10 ml 1X PRN PRN 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; Start 05/04/21 at 07:30; Stop 05/05/21 at 07:29; Status DC Sodium Chloride 1,000 ml @ 400 mls/hr Q2H30M PRN IV PATENCY; Start 05/04/21 at 07:30; Stop 05/04/21 at 19:29; Status DC Info (PHARMACY MONITORING -- do not chart) 1 each PRN DAILY PRN MC SEE COMMENTS; Start 05/04/21 at 07:30; Status UNV Info (PHARMACY MONITORING -- do not chart) 1 each PRN DAILY PRN MC SEE COMMENTS; Start 05/04/21 at 07:30; Stop 05/07/21 at 08:47; Status DC Dexmedetomidine HCl 400 mcg/ Sodium Chloride 100 ml @ 0 mls/hr CONT PRN IV PER PROTOCOL Last administered on 05/08/21at 02:40; Start 05/04/21 at 10:30 Cefepime HCl (Maxipime) 1 gm Q24H IVP Last administered on 05/07/21at 17:20; Start 05/04/21 at 16:00 Daptomycin 600 mg/ Sodium Chloride 50 ml @ 100 mls/hr Q48H IV Last administered on 05/04/21at 15:24; Start 05/04/21 at 15:00; Stop 05/06/21 at 08:07; Status DC Potassium Chloride/Water 100 ml @ 100 mls/hr 1X ONCE IV Last administered on 05/06/21at 09:14; Start 05/06/21 at 08:30; Stop 05/06/21 at 09:29; Status DC Nicardipine HCl 50 mg/Sodium Chloride 250 ml @ 25 mls/hr CONT PRN IV SEE I/O RECORD Last administered on 05/08/21at 03:29; Start 05/06/21 at 18:45 Sodium Chloride 1,000 ml @ 1,000 mls/hr Q1H PRN IV hypotension; Start 05/07/21 at 08:45; Stop 05/07/21 at 14:44; Status DC Albumin Human 200 ml @ 200 mls/hr 1X PRN PRN IV Hypotension Last administered on 05/07/21at 11:41; Start 05/07/21 at 08:45; Stop 05/07/21 at 14:44; Status DC Sodium Chloride 1,000 ml @ 400 mls/hr Q2H30M PRN IV PATENCY; Start 05/07/21 at 08:45; Stop 05/07/21 at 20:44; Status DC Info (PHARMACY MONITORING -- do not chart) 1 each PRN DAILY PRN MC SEE COMMENTS; Start 05/07/21 at 08:45; Status UNV Info (PHARMACY MONITORING -- do not chart) 1 each PRN DAILY PRN MC SEE COMMENTS; Start 05/07/21 at 08:45 Albumin Human 100 ml @ 100 mls/hr 1X ONCE IV ; Start 05/07/21 at 11:45; Stop 05/07/21 at 12:44; Status DC Multi-Ingred Cream/Lotion/Oil/ Oint (Artificial Tears Eye Ointment) 1 danielito PRN Q1HR PRN OU DRY EYE; Start 05/07/21 at 16:00 Active Scripts Active Glyburide 2.5 Mg Tablet 1 Tab PO DAILY 14 Days Polyethylene Glycol 3350 17 Gm Powd.pack 17 Gm PO DAILY 14 Days Dok (Docusate Sodium) 100 Mg Capsule 100 Mg PO PRN DAILY PRN 30 Days Bisacodyl 5 Mg Tablet.dr 5 Mg PO PRN DAILY PRN 14 Days Acetaminophen 325 Mg Tablet 650 Mg PO PRN Q4HRS PRN 14 Days Aspirin Ec (Aspirin) 81 Mg Tablet.dr 81 Mg PO DAILYWBKFT 30 Days Hydralazine Hcl 25 Mg Tablet 25 Mg PO QID 30 Days Reported Fenofibrate 54 Mg Tablet 1 Tab PO DAILY Potassium Chloride (Potassium Chloride) 20 Meq Tablet.er 20 Meq PO DAILY Coreg (Carvedilol) 12.5 Mg Tablet 37.5 Mg PO BIDWMEALS Rosuvastatin Calcium 40 Mg Tablet 40 Mg PO QHS Gabapentin (Gabapentin) 100 Mg Capsule 200 Mg PO BID Montelukast Sodium Tablet (Montelukast Sodium) 10 Mg Tablet 10 Mg PO HS Protonix (Pantoprazole Sodium) 20 Mg Tablet.dr 2 Tab PO DAILY Amlodipine Besylate 5 Mg Tablet 5 Mg PO DAILY Furosemide 40 Mg Tablet 1 Tab PO DAILY Proair Hfa Inhaler (Albuterol Sulfate) 8.5 Gm Hfa.aer.ad 2 Puff IH PRN Q4-6HRS PRN 21 Days Advair 100-50 Diskus (Fluticasone/Salmeterol) 1 Each Disk.w.dev 1 Puff IH BID Vitals/I & O Vital Sign - Last 24 Hours 05/07/21 05/07/21 05/07/21 05/07/21 09:07 10:23 10:53 10:55 Pulse 52 67 82 Resp 20 20 20 20 B/P (MAP) 148/58 (88) 106/52 (70) 165/95 (118) Pulse Ox 99 98 98 91 O2 Delivery Ventilator Ventilator Ventilator Ventilator 05/07/21 05/07/21 05/07/21 05/07/21 11:23 11:39 11:40 11:59 Temp 97.9 97.9 Pulse 76 Resp 20 22 B/P (MAP) 123/56 (78) Pulse Ox 97 100 97 O2 Delivery Ventilator Mechanical Ventilator Ventilator Ventilator 05/07/21 05/07/21 05/07/21 05/07/21 12:43 12:44 13:12 14:00 Pulse 76 76 83 59 Resp 20 20 B/P (MAP) 150/89 123/56 181/86 (117) 140/58 (85) Pulse Ox 91 96 O2 Delivery Ventilator Ventilator 05/07/21 05/07/21 05/07/21 05/07/21 15:03 15:23 15:51 16:17 Temp 98.6 98.6 Pulse 59 59 Resp 20 20 B/P (MAP) 146/56 (86) 152/58 (89) Pulse Ox 98 98 98 O2 Delivery Ventilator Ventilator Mechanical Ventilator Ventilator 05/07/21 05/07/21 05/07/21 05/07/21 17:11 17:19 17:19 17:51 Pulse 77 77 Resp 20 24 B/P (MAP) 170/71 (104) 170/71 Pulse Ox 97 97 97 O2 Delivery Ventilator Ventilator Ventilator 05/07/21 05/07/21 05/07/21 05/07/21 18:11 19:00 20:00 20:00 Temp 100.0 100.0 Pulse 62 58 90 Resp 20 20 25 B/P (MAP) 139/54 (82) 145/59 (87) 158/77 (104) Pulse Ox 96 97 96 O2 Delivery Ventilator Ventilator Ventilator Mechanical Ventilator 05/07/21 05/07/21 05/07/21 05/07/21 20:05 21:00 22:00 23:00 Pulse 64 66 68 Resp 20 20 20 B/P (MAP) 120/53 (75) 119/52 (74) 140/53 (82) Pulse Ox 96 94 94 94 O2 Delivery Ventilator Ventilator Ventilator Ventilator 05/07/21 05/07/21 05/08/21 05/08/21 23:05 23:35 00:00 00:00 Temp 100.4 100.4 Pulse 66 64 Resp 20 B/P (MAP) 138/63 142/59 (86) Pulse Ox 95 94 O2 Delivery Ventilator Ventilator Mechanical Ventilator 05/08/21 05/08/21 05/08/21 05/08/21 00:02 01:00 02:00 02:10 Pulse 86 64 Resp 20 30 25 B/P (MAP) 108/84 (92) 133/69 (90) Pulse Ox 95 97 97 96 O2 Delivery Ventilator Ventilator Ventilator 05/08/21 05/08/21 05/08/21 05/08/21 03:00 04:00 04:00 05:00 Temp 99.7 99.7 Pulse 61 63 63 Resp 20 20 20 B/P (MAP) 140/52 (81) 153/56 (88) 119/60 (79) Pulse Ox 98 98 95 O2 Delivery Ventilator Ventilator Mechanical Ventilator Ventilator 05/08/21 05/08/21 05/08/21 05/08/21 05:10 05:36 06:00 07:18 Pulse 75 63 Resp 20 20 B/P (MAP) 117/47 143/57 (85) Pulse Ox 95 95 O2 Delivery Ventilator Ventilator Intake and Output 05/07/21 05/07/21 05/08/21 15:00 23:00 07:00 Intake Total 520 ml 2285 ml 2571 ml Output Total 600 ml 840 ml 470 ml Balance -80 ml 1445 ml 2101 ml Justicifation of Admission Dx: Justifications for Admission: Justification of Admission Dx: Yes Aspiration Pneumonia: Hemodynamic Instability ALBA SWAIN MD May 08, 2021 08:37
[2021-05-08 09:00] LABS: FIO2 ABG 40
[2021-05-08] MEDS: ASPIRIN CHEWABLE 81 MG TABLET. PO SCH (09:30)
[2021-05-08] MEDS: AMIODARONE HCL 200 MG TABLET. PO SCH (09:30)
[2021-05-08] MEDS: PANTOPRAZOLE IV PUSH 40 MG VIAL. IVP SCH (09:30)
--- NOTE | 2021-05-08 09:41 | PDOC ---
DATE OF SERVICE DATE: 05/08/21 TIME: 09:30 SUBJECTIVE ROS Remains intubated OBJECTIVE Vital Signs Vital Signs Date Time Temp Pulse Resp B/P (MAP) Pulse Ox O2 Delivery O2 Flow Rate FiO2 05/08/21 08:14 96 Ventilator 05/08/21 07:18 20 05/08/21 06:00 63 143/57 (85) 05/08/21 04:00 99.7 99.7 I & 0 Intake and Output 05/08/21 07:00 Intake Total 5376 ml Output Total 1910 ml Balance 3466 ml IV Total 1944 ml Tube Feeding 1958 ml Other 1474 ml Output Urine Total 1910 ml PHYSICAL EXAM Physical Exam GENERAL: intubated, sedated. HEENT: anicteric. ETT and OGT present. NECK: , right dialysis catheter+, HEART: S1, S2. LUNGS: Decreased breath sounds. ABDOMEN: Soft,bowel sounds present. GENITOURINARY: Nieves in place. EXTREMITIES: Edema present. DERMATOLOGIC: Warm, dry, no generalized rash. NEUROLOGIC: Intubated. PSYCHIATRIC: Unable to obtain. 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 Recent CT Atrophic appearance of the right kidney. COVID-19 positive - Abnormal CT chest with bilateral diffuse interstitial infiltrates without any significant pleural effusion. Acute respiratory failure with Hypoxia Intubated ; CxR Mild pulmonary edema with new small right pleural effusion and basilar opacities. Unchanged small left pleural effusion and basilar opacities. Atrial Fib- per Cardiology Cholelithiasis Anemia . BETTY held 2/2 Hypercoagulable state Severe HypoAlbuminemia DM II Hypotension - Low BP, at presentation , resolved; Low again this morning, not requiring pressor support HTN- On antihypertensives @ home NSTEMI - possibly demand ischemia SIRS - likely sepsis from HCAP H/o bilateral Subclavian stenosis s/p left subclavian sent placement complicated by retroperitoneal hematoma s/p evacuation in 08/2015. COMMENT/RELEVANT DATA Meds Current Medications Medications (Trade) Dose Ordered Sig/Jodie Start Time Stop Time Status Last Admin Dose Admin Acetaminophen (Tylenol) 650 mg PRN Q6HRS PRN 04/24/21 14:00 Cancel Albumin Human 100 ml @ 100 mls/hr 1X ONCE 05/07/21 11:45 05/07/21 12:44 DC Amiodarone HCl (Cordarone) 200 mg DAILY 04/28/21 09:00 05/07/21 12:44 200 MG Amiodarone HCl 150 mg/Dextrose 103 ml @ 618 mls/hr 1X ONCE 04/27/21 02:30 04/27/21 02:39 DC 04/27/21 02:30 618 MLS/HR Amiodarone HCl 450 mg/Dextrose 259 ml @ 33 mls/hr CONT PRN 04/27/21 02:30 04/30/21 07:56 DC Aspirin (Aspirin Chewable) 81 mg DAILYWBKFT 05/03/21 10:00 05/07/21 12:44 81 MG Aspirin (Ecotrin) 81 mg DAILYWBKFT 04/25/21 08:00 05/03/21 09:56 DC 05/02/21 07:20 81 MG Atorvastatin Calcium (Lipitor) 80 mg QHS 04/24/21 21:00 05/07/21 20:27 80 MG Bisacodyl (Dulcolax Supp) 10 mg PRN DAILY PRN 04/24/21 14:00 Carvedilol (Coreg) 3.125 mg BIDWMEALS 04/24/21 17:00 04/25/21 15:42 DC 04/25/21 09:23 3.125 MG Cefepime HCl (Maxipime) 1 gm Q24H 05/04/21 16:00 05/07/21 17:20 1 GM Chlorhexidine Gluconate (Peridex) 15 ml BID 04/24/21 21:00 04/25/21 11:19 DC 04/24/21 20:49 15 ML Daptomycin 600 mg/ Sodium Chloride 50 ml @ 100 mls/hr Q48H 05/04/21 15:00 05/06/21 08:07 DC 05/04/21 15:24 100 MLS/HR Dexamethasone Sodium Phosphate (Decadron) 6 mg DAILY 04/25/21 17:00 05/07/21 09:18 DC 05/06/21 08:38 6 MG Dexmedetomidine HCl 400 mcg/ Sodium Chloride 100 ml @ 0 mls/hr CONT PRN 05/04/21 10:30 05/08/21 02:40 13.1 MLS/HR Dextrose (Dextrose 50%-Water Syringe) 12.5 gm PRN Q15MIN PRN 05/03/21 14:00 Digoxin (Lanoxin) 250 mcg 1X ONCE 04/26/21 13:00 04/26/21 13:05 DC 04/26/21 15:02 250 MCG Etomidate (Amidate) 20 mg STK-MED ONCE 04/24/21 13:38 04/24/21 13:38 DC Fentanyl Citrate 30 ml @ 0 mls/hr CONT PRN 04/24/21 14:00 05/08/21 07:18 3.75 MLS/HR Fentanyl Citrate (Fentanyl 2ml Vial) 25 mcg PRN Q1HR PRN 04/24/21 14:00 04/24/21 16:39 25 MCG Furosemide (Lasix) 40 mg Q8HRS 05/02/21 14:00 05/08/21 05:36 40 MG Heparin Sodium (Porcine) (Heparin Sodium) 5,000 unit Q8HRS 05/01/21 14:00 05/08/21 05:37 5,000 UNIT Heparin Sodium/ Dextrose 250 ml @ 0 mls/hr CONT PRN 04/24/21 16:45 05/01/21 12:32 DC 05/01/21 05:10 10 MLS/HR Hydralazine HCl (Apresoline Inj) 10 mg PRN Q4HRS PRN 04/25/21 14:45 05/04/21 17:47 10 MG Info (Anti-Coagulation Monitoring By Pharmacy) 1 each PRN DAILY PRN 04/25/21 13:00 05/02/21 07:36 DC 04/26/21 08:51 1 EACH Info (PHARMACY MONITORING -- do not chart) 1 each PRN DAILY PRN 05/07/21 08:45 Insulin Glargine (Lantus Syringe) 10 unit QHS 05/03/21 21:00 05/07/21 20:27 10 UNIT Insulin Human Lispro (HumaLOG) 0-5 UNITS Q6HRS 05/03/21 18:00 05/08/21 05:53 2 UNITS Labetalol HCl (Normodyne Iv Push) 20 mg PRN Q2HR PRN 05/01/21 12:30 05/06/21 17:19 20 MG Lidocaine HCl (Buffered Lidocaine 1%) 3 ml 1X ONCE 04/27/21 11:15 04/27/21 11:16 DC 04/27/21 11:15 3 ML Magnesium Sulfate 50 ml @ 25 mls/hr PRN DAILY PRN 04/29/21 10:45 Metoprolol Tartrate (Lopressor Vial) 5 mg Q6HRS 04/25/21 18:00 05/08/21 05:36 5 MG Midazolam HCl 100 ml @ 0 mls/hr CONT PRN 04/26/21 07:00 05/02/21 19:58 6 MLS/HR Montelukast Sodium (Singulair) 10 mg HS 04/24/21 21:00 05/07/21 20:27 10 MG Multi-Ingred Cream/Lotion/Oil/ Oint (Artificial Tears Eye Ointment) 1 danielito PRN Q1HR PRN 05/07/21 16:00 Nicardipine HCl 50 mg/Sodium Chloride 250 ml @ 25 mls/hr CONT PRN 05/06/21 18:45 05/08/21 03:29 37.5 MLS/HR Norepinephrine Bitartrate 8 mg/ Dextrose 258 ml @ 25.852 mls/ hr CONT PRN 05/02/21 21:00 05/02/21 21:22 25.852 MLS/HR Ondansetron HCl (Zofran) 4 mg PRN Q6HRS PRN 04/24/21 14:00 Pantoprazole Sodium (PROTONIX VIAL for IV PUSH) 40 mg DAILYAC 04/26/21 09:30 05/07/21 12:43 40 MG Potassium Chloride/Water 100 ml @ 100 mls/hr 1X ONCE 05/06/21 08:30 05/06/21 09:29 DC 05/06/21 09:14 100 MLS/HR Propofol 100 ml @ 0 mls/hr CONT PRN 04/24/21 15:30 05/08/21 08:50 23.6 MLS/HR Remdesivir 100 mg/ Sodium Chloride 230 ml @ 460 mls/hr Q24H 04/26/21 17:30 04/29/21 17:59 DC 04/29/21 13:51 460 MLS/HR Remdesivir 200 mg/ Sodium Chloride 210 ml @ 210 mls/hr 1X ONCE 04/25/21 17:30 04/25/21 18:29 DC 04/25/21 17:09 210 MLS/HR Sodium Bicarbonate (Sodium Bicarb Adult 8.4% Syr) 50 meq 1X ONCE 04/27/21 09:45 04/27/21 09:46 DC 04/27/21 09:50 50 MEQ Sodium Chloride 1,000 ml @ 400 mls/hr Q2H30M PRN 05/07/21 08:45 05/07/21 20:44 DC Sodium Chloride (Normal Saline Flush) 10 ml 1X PRN PRN 05/04/21 07:30 05/05/21 07:29 DC Succinylcholine Chloride (Anectine) 200 mg STK-MED ONCE 04/24/21 13:38 04/24/21 13:38 DC Vecuronium [place] (Norcuron Bolus) 6 mg PRN Q6HRS PRN 04/30/21 11:15 Lab Laboratory Tests Test 05/07/21 16:13 05/07/21 19:51 05/07/21 23:55 05/08/21 05:45 Glucose (Fingerstick) 184 mg/dL (70-99) 181 mg/dL (70-99) 197 mg/dL (70-99) 198 mg/dL (70-99) Test 05/08/21 06:00 05/08/21 08:26 White Blood Count 19.0 x10^3/uL (4.0-11.0) Red Blood Count 3.00 x10^6/uL (4.30-5.70) Hemoglobin 7.8 g/dL (13.0-17.5) Hematocrit 24.6 % (39.0-53.0) Mean Corpuscular Volume 82 fL (79-100) Mean Corpuscular Hemoglobin 26 pg (25-35) Mean Corpuscular Hemoglobin Concent 32 g/dL (31-37) Red Cell Distribution Width 16.0 % (11.5-14.5) Platelet Count 358 x10^3/uL (140-400) Neutrophils (%) (Auto) 80 % (31-73) Lymphocytes (%) (Auto) 9 % (24-48) Monocytes (%) (Auto) 9 % (0-9) Eosinophils (%) (Auto) 1 % (0-3) Basophils (%) (Auto) 0 % (0-3) Neutrophils # (Auto) 15.2 x10^3/uL (1.8-7.7) Lymphocytes # (Auto) 1.8 x10^3/uL (1.0-4.8) Monocytes # (Auto) 1.7 x10^3/uL (0.0-1.1) Eosinophils # (Auto) 0.2 x10^3/uL (0.0-0.7) Basophils # (Auto) 0.0 x10^3/uL (0.0-0.2) Segmented Neutrophils % 84 % (35-66) Band Neutrophils % 1 % (0-9) Lymphocytes % 10 % (24-48) Monocytes % 3 % (0-10) Eosinophils % 2 % (0-5) Platelet Estimate Adequate (ADEQUATE) Sodium Level 131 mmol/L (136-145) Potassium Level 3.3 mmol/L (3.5-5.1) Chloride Level 96 mmol/L (98-107) Carbon Dioxide Level 27 mmol/L (21-32) Anion Gap 8 (6-14) Blood Urea Nitrogen 41 mg/dL (8-26) Creatinine 2.5 mg/dL (0.7-1.3) Estimated GFR (Cockcroft-Gault) 30.7 Glucose Level 205 mg/dL (70-99) Calcium Level 8.3 mg/dL (8.5-10.1) O2 Saturation 89 % (92-99) Arterial Blood pH 7.40 (7.35-7.45) Arterial Blood pCO2 at Patient Temp 40 mmHg (35-46) Arterial Blood pO2 at Patient Temp 62 mmHg (65-108) Arterial Blood HCO3 24 mmol/L (21-28) Arterial Blood Base Excess -1 mmol/L (-3-3) FiO2 40 Results All relevant outside records, renal labs, imaging studies, telemetry/EKG's were reviewed. Justicifation of Admission Dx: Justifications for Admission: Justification of Admission Dx: Yes Aspiration Pneumonia: Hemodynamic Instability JASMEET LAM MD May 08, 2021 09:41
--- NOTE | 2021-05-08 10:53 | NUR ---
SS following up with discharge planning. SS reviewed pt chart and discussed with pt RN. Pt is currently on the vent at 40%. COVID19 positive. Pt on IV Cefepime and IV Lasix. Pt on Propofol, Fentanyl, Precedex, and Cardine. Hemodialysis patient. Not stable. SS will continue to follow for discharge planning. Addendum: 05/08/21 at 1057 by LAKHWINDER CUETO Per RN, pt getting potassium today.
[2021-05-08] MEDS: POTASSIUM CHLORIDE 20MEQ 100 ML IV SCH ×2 (10:55→11:54)
--- NOTE | 2021-05-08 11:10 | PDOC ---
PULMONARY PROGRESS NOTES DATE: 05/08/21 TIME: 11:08 Subjective intubated/sedated Currently on 40%, 5 of PEEP now on cardene gtt didn't tolerate PS trial 05/07/21 Vitals Vital Signs Date Time Temp Pulse Resp B/P (MAP) Pulse Ox O2 Delivery O2 Flow Rate FiO2 05/08/21 10:41 96 Ventilator 05/08/21 10:00 63 20 91/44 (60) 05/08/21 08:00 99.3 99.3 Comments Visual exam done due to COVID-19. Intubated and sedated No paradoxical breathing. Labs Laboratory Tests Test 05/06/21 11:46 05/06/21 12:00 05/06/21 17:20 05/07/21 00:53 Glucose (Fingerstick) 148 mg/dL (70-99) 219 mg/dL (70-99) 215 mg/dL (70-99) Clostridium difficile Toxin (PCR) Negative (NEGATIVE) Test 05/07/21 06:25 05/07/21 06:32 05/07/21 08:00 05/07/21 16:13 Sodium Level 133 mmol/L (136-145) Potassium Level 3.3 mmol/L (3.5-5.1) Chloride Level 95 mmol/L (98-107) Carbon Dioxide Level 27 mmol/L (21-32) Anion Gap 11 (6-14) Blood Urea Nitrogen 62 mg/dL (8-26) Creatinine 3.0 mg/dL (0.7-1.3) Estimated GFR (Cockcroft-Gault) 24.9 BUN/Creatinine Ratio 21 (6-20) Glucose Level 197 mg/dL (70-99) Calcium Level 8.5 mg/dL (8.5-10.1) Total Bilirubin 0.4 mg/dL (0.2-1.0) Aspartate Amino Transf (AST/SGOT) 46 U/L (15-37) Alanine Aminotransferase (ALT/SGPT) 18 U/L (16-63) Alkaline Phosphatase 64 U/L (46-116) Total Protein 5.6 g/dL (6.4-8.2) Albumin 1.5 g/dL (3.4-5.0) Albumin/Globulin Ratio 0.4 (1.0-1.7) Glucose (Fingerstick) 199 mg/dL (70-99) 184 mg/dL (70-99) O2 Saturation 93 % (92-99) Arterial Blood pH 7.47 (7.35-7.45) Arterial Blood pCO2 at Patient Temp 34 mmHg (35-46) Arterial Blood pO2 at Patient Temp 69 mmHg (65-108) Arterial Blood HCO3 24 mmol/L (21-28) Arterial Blood Base Excess 1 mmol/L (-3-3) FiO2 40 Test 05/07/21 19:51 05/07/21 23:55 05/08/21 05:45 05/08/21 06:00 Glucose (Fingerstick) 181 mg/dL (70-99) 197 mg/dL (70-99) 198 mg/dL (70-99) White Blood Count 19.0 x10^3/uL (4.0-11.0) Red Blood Count 3.00 x10^6/uL (4.30-5.70) Hemoglobin 7.8 g/dL (13.0-17.5) Hematocrit 24.6 % (39.0-53.0) Mean Corpuscular Volume 82 fL (79-100) Mean Corpuscular Hemoglobin 26 pg (25-35) Mean Corpuscular Hemoglobin Concent 32 g/dL (31-37) Red Cell Distribution Width 16.0 % (11.5-14.5) Platelet Count 358 x10^3/uL (140-400) Neutrophils (%) (Auto) 80 % (31-73) Lymphocytes (%) (Auto) 9 % (24-48) Monocytes (%) (Auto) 9 % (0-9) Eosinophils (%) (Auto) 1 % (0-3) Basophils (%) (Auto) 0 % (0-3) Neutrophils # (Auto) 15.2 x10^3/uL (1.8-7.7) Lymphocytes # (Auto) 1.8 x10^3/uL (1.0-4.8) Monocytes # (Auto) 1.7 x10^3/uL (0.0-1.1) Eosinophils # (Auto) 0.2 x10^3/uL (0.0-0.7) Basophils # (Auto) 0.0 x10^3/uL (0.0-0.2) Segmented Neutrophils % 84 % (35-66) Band Neutrophils % 1 % (0-9) Lymphocytes % 10 % (24-48) Monocytes % 3 % (0-10) Eosinophils % 2 % (0-5) Platelet Estimate Adequate (ADEQUATE) Sodium Level 131 mmol/L (136-145) Potassium Level 3.3 mmol/L (3.5-5.1) Chloride Level 96 mmol/L (98-107) Carbon Dioxide Level 27 mmol/L (21-32) Anion Gap 8 (6-14) Blood Urea Nitrogen 41 mg/dL (8-26) Creatinine 2.5 mg/dL (0.7-1.3) Estimated GFR (Cockcroft-Gault) 30.7 Glucose Level 205 mg/dL (70-99) Calcium Level 8.3 mg/dL (8.5-10.1) Test 05/08/21 08:26 O2 Saturation 89 % (92-99) Arterial Blood pH 7.40 (7.35-7.45) Arterial Blood pCO2 at Patient Temp 40 mmHg (35-46) Arterial Blood pO2 at Patient Temp 62 mmHg (65-108) Arterial Blood HCO3 24 mmol/L (21-28) Arterial Blood Base Excess -1 mmol/L (-3-3) FiO2 40 Laboratory Tests Test 05/07/21 16:13 05/07/21 19:51 05/07/21 23:55 05/08/21 05:45 Glucose (Fingerstick) 184 mg/dL (70-99) 181 mg/dL (70-99) 197 mg/dL (70-99) 198 mg/dL (70-99) Test 05/08/21 06:00 05/08/21 08:26 White Blood Count 19.0 x10^3/uL (4.0-11.0) Red Blood Count 3.00 x10^6/uL (4.30-5.70) Hemoglobin 7.8 g/dL (13.0-17.5) Hematocrit 24.6 % (39.0-53.0) Mean Corpuscular Volume 82 fL (79-100) Mean Corpuscular Hemoglobin 26 pg (25-35) Mean Corpuscular Hemoglobin Concent 32 g/dL (31-37) Red Cell Distribution Width 16.0 % (11.5-14.5) Platelet Count 358 x10^3/uL (140-400) Neutrophils (%) (Auto) 80 % (31-73) Lymphocytes (%) (Auto) 9 % (24-48) Monocytes (%) (Auto) 9 % (0-9) Eosinophils (%) (Auto) 1 % (0-3) Basophils (%) (Auto) 0 % (0-3) Neutrophils # (Auto) 15.2 x10^3/uL (1.8-7.7) Lymphocytes # (Auto) 1.8 x10^3/uL (1.0-4.8) Monocytes # (Auto) 1.7 x10^3/uL (0.0-1.1) Eosinophils # (Auto) 0.2 x10^3/uL (0.0-0.7) Basophils # (Auto) 0.0 x10^3/uL (0.0-0.2) Segmented Neutrophils % 84 % (35-66) Band Neutrophils % 1 % (0-9) Lymphocytes % 10 % (24-48) Monocytes % 3 % (0-10) Eosinophils % 2 % (0-5) Platelet Estimate Adequate (ADEQUATE) Sodium Level 131 mmol/L (136-145) Potassium Level 3.3 mmol/L (3.5-5.1) Chloride Level 96 mmol/L (98-107) Carbon Dioxide Level 27 mmol/L (21-32) Anion Gap 8 (6-14) Blood Urea Nitrogen 41 mg/dL (8-26) Creatinine 2.5 mg/dL (0.7-1.3) Estimated GFR (Cockcroft-Gault) 30.7 Glucose Level 205 mg/dL (70-99) Calcium Level 8.3 mg/dL (8.5-10.1) O2 Saturation 89 % (92-99) Arterial Blood pH 7.40 (7.35-7.45) Arterial Blood pCO2 at Patient Temp 40 mmHg (35-46) Arterial Blood pO2 at Patient Temp 62 mmHg (65-108) Arterial Blood HCO3 24 mmol/L (21-28) Arterial Blood Base Excess -1 mmol/L (-3-3) FiO2 40 Medications Active Scripts Medications Dose Route/Sig Max Daily Dose Days Date Category Glyburide 2.5 Mg Tablet 1 Tab PO DAILY 04/19/21 Rx Polyethylene Glycol 3350 17 Gm Powd.pack 17 Gm PO DAILY 04/19/21 Rx Dok (Docusate Sodium) 100 Mg Capsule 100 Mg PO PRN DAILY PRN 30 04/19/21 Rx Bisacodyl 5 Mg Tablet. 5 Mg PO PRN DAILY PRN 14 04/19/21 Rx Acetaminophen 325 Mg Tablet 650 Mg PO PRN Q4HRS PRN 14 04/19/21 Rx Aspirin Ec (Aspirin) 81 Mg Tablet. 81 Mg PO DAILYWBKFT 30 04/19/21 Rx Hydralazine Hcl 25 Mg Tablet 25 Mg PO QID 30 04/19/21 Rx Fenofibrate 54 Mg Tablet 1 Tab PO DAILY 04/17/21 Reported Potassium Chloride (Potassium Chloride) 20 Meq Tablet.er 20 Meq PO DAILY 04/17/21 Reported Coreg (Carvedilol) 12.5 Mg Tablet 37.5 Mg PO BIDWMEALS 04/17/21 Reported Rosuvastatin Calcium 40 Mg Tablet 40 Mg PO QHS 04/17/21 Reported Gabapentin (Gabapentin) 100 Mg Capsule 200 Mg PO BID 04/17/21 Reported Montelukast Sodium Tablet (Montelukast Sodium) 10 Mg Tablet 10 Mg PO HS 04/17/21 Reported Protonix (Pantoprazole Sodium) 20 Mg Tablet. 2 Tab PO DAILY 04/17/21 Reported Amlodipine Besylate 5 Mg Tablet 5 Mg PO DAILY 04/17/21 Reported Furosemide 40 Mg Tablet 1 Tab PO DAILY 04/17/21 Reported Proair Hfa Inhaler (Albuterol Sulfate) 8.5 Gm Hfa.aer.ad 2 Puff IH PRN Q4-6HRS PRN 04/16/21 Reported Advair 100-50 Diskus (Fluticasone/Salmeterol) 1 Each Disk.w.dev 1 Puff IH BID 04/16/21 Reported Comments Impression . IMPRESSION: 1. Acute hypoxic respiratory failure, multifactorial/COVID-19 viral pneumonia/ARDS 2. Abnormal CT chest with bilateral diffuse interstitial infiltrates without any significant pleural effusion 3. Leukocytosis, sepsis--ongoing ID following 4. Non-ST segment elevation [place] 5. History of tobacco use, suspect COPD, unknown FEV1 6. Chronic kidney disease. Worsening ILDA on CKD, on HD now 7. Metabolic acidosis multifactorial 8. Abnormal chest x-ray 9. Hypoglycemia, continue to monitor 10. Hypotension, suspect volume deficit,/possible sepsis 11. Fever--resolved Plan . Updated 05/08/21 Continue current vent support 40% and PEEP of 5, attempt sedation vacation and PS trial, pt. didn't tolerate PS trial 05/07/21 , will re attempt again today Follow ABG/CXR--reviewed no changes DC steroids--has completed full 12 day course Proceed with sedation vacation and PS trial Follow ID recs for ABX --Continue cefepime-- Follow cultures Follow nephrology recs-- HD Follow Cardiology recs--preserved LV function continue TF for nutritional support DVT/GI PPX:subQ heparin D/W RN and RT Pt. is DNR cct 30 min Updated 05/07/21 Continue current vent support 40% and PEEP of 5, attempt sedation vacation and PS trial, pt. didn't tolerate PS trial 05/06/21 Follow ABG/CXR--reviewed no changes DC steroids--has completed full 12 day course Proceed with sedation vacation and PS trial Follow ID recs for ABX --Continue cefepime-- Follow cultures Follow nephrology recs-- HD Follow Cardiology recs--preserved LV function continue TF for nutritional support DVT/GI PPX:subQ heparin D/W RN and RT Pt. is DNR Updated 05/06/21 Continue current vent support 40% and PEEP of 5 Follow ABG/CXR continue steroids Proceed with sedation vacation and PS trial Follow ID recs for ABX --Continue cefepime-- Follow cultures Follow nephrology recs-- HD Follow Cardiology recs continue TF for nutritional support DVT/GI PPX D/W RN and RT Pt. is DNR Updated 05/05 Appreciate ID input Continue cefepime and daptomycin ABG noted, discussed with RT Monitor blood sugars Hemodialysis per nephrology Anticoagulation Changed, follow-up on central line tip cultures GI prophylaxis Chest x-ray from 730 reviewed, no significant change 05/04, updated ABG noted PaO2 of 97 Chest x-ray noted no significant change bilateral infiltrate So far cultures negative Antibiotics per ID Monitor blood sugars Hemodialysis per nephrology Patient not ready for spontaneous trial JONES FISHMAN MD May 08, 2021 11:10
--- NOTE | 2021-05-08 11:38 | PDOC ---
[employer] 05/08/21 1138: CARDIO Progress Notes Date and Time Date of Service 05/08/2021 Time of Evaluation 0910 Subjective Subjective: Other (intubated ) Vitals Vitals Vital Signs Date Time Temp Pulse Resp B/P (MAP) Pulse Ox O2 Delivery O2 Flow Rate FiO2 05/08/21 10:41 96 Ventilator 05/08/21 10:00 63 20 91/44 (60) 05/08/21 08:00 99.3 99.3 Weight Weight [ ] Input and Output Intake and Output Intake and Output 05/08/21 07:00 Intake Total 5376 ml Output Total 1910 ml Balance 3466 ml IV Total 1944 ml Tube Feeding 1958 ml Other 1474 ml Output Urine Total 1910 ml Laboratory Labs Laboratory Tests Test 05/07/21 16:13 05/07/21 19:51 05/07/21 23:55 05/08/21 05:45 Glucose (Fingerstick) 184 mg/dL (70-99) 181 mg/dL (70-99) 197 mg/dL (70-99) 198 mg/dL (70-99) Test 05/08/21 06:00 05/08/21 08:26 White Blood Count 19.0 x10^3/uL (4.0-11.0) Red Blood Count 3.00 x10^6/uL (4.30-5.70) Hemoglobin 7.8 g/dL (13.0-17.5) Hematocrit 24.6 % (39.0-53.0) Mean Corpuscular Volume 82 fL (79-100) Mean Corpuscular Hemoglobin 26 pg (25-35) Mean Corpuscular Hemoglobin Concent 32 g/dL (31-37) Red Cell Distribution Width 16.0 % (11.5-14.5) Platelet Count 358 x10^3/uL (140-400) Neutrophils (%) (Auto) 80 % (31-73) Lymphocytes (%) (Auto) 9 % (24-48) Monocytes (%) (Auto) 9 % (0-9) Eosinophils (%) (Auto) 1 % (0-3) Basophils (%) (Auto) 0 % (0-3) Neutrophils # (Auto) 15.2 x10^3/uL (1.8-7.7) Lymphocytes # (Auto) 1.8 x10^3/uL (1.0-4.8) Monocytes # (Auto) 1.7 x10^3/uL (0.0-1.1) Eosinophils # (Auto) 0.2 x10^3/uL (0.0-0.7) Basophils # (Auto) 0.0 x10^3/uL (0.0-0.2) Segmented Neutrophils % 84 % (35-66) Band Neutrophils % 1 % (0-9) Lymphocytes % 10 % (24-48) Monocytes % 3 % (0-10) Eosinophils % 2 % (0-5) Platelet Estimate Adequate (ADEQUATE) Sodium Level 131 mmol/L (136-145) Potassium Level 3.3 mmol/L (3.5-5.1) Chloride Level 96 mmol/L (98-107) Carbon Dioxide Level 27 mmol/L (21-32) Anion Gap 8 (6-14) Blood Urea Nitrogen 41 mg/dL (8-26) Creatinine 2.5 mg/dL (0.7-1.3) Estimated GFR (Cockcroft-Gault) 30.7 Glucose Level 205 mg/dL (70-99) Calcium Level 8.3 mg/dL (8.5-10.1) O2 Saturation 89 % (92-99) Arterial Blood pH 7.40 (7.35-7.45) Arterial Blood pCO2 at Patient Temp 40 mmHg (35-46) Arterial Blood pO2 at Patient Temp 62 mmHg (65-108) Arterial Blood HCO3 24 mmol/L (21-28) Arterial Blood Base Excess -1 mmol/L (-3-3) FiO2 40 Microbiology Micro Microbiology 05/04/21 Gram Stain Evaluation - Final, Complete 05/04/21 Respiratory Culture - Final, Complete 05/04/21 Gram Stain - Final, Complete 05/04/21 Aerobic Culture - Final, Complete 05/04/21 Blood Culture - Preliminary, Resulted NO GROWTH AFTER 3 DAYS Review of Systems Constitutional: yes: unresponsive, other (UNABLE TO OBTAIN) Physical Exam HEENT: Neck Supple W Full Motion Chest: Symmetric LUNGS: Other (MV) Heart: RRR (SR with PAC's, PVCs) Abdomen: Other (soft) Extremities: Other (1+ bilateral LE edema ) Neurology: other (sedated) Assessment Assessment 1. Acute respiratory failure secondary to CHF, s/p intubation. COVID + 2. Acute on chronic diastolic CHF 3. Hypertensive urgency; better controlled 4. NSTEMI; trop highest 2.8. Echo last week with preserved LV systolic function with moderate LVH. Most probable type II, demand ischemia in setting of above, although underling ischemic cannot be ruled out 5. ? CAD; details unknown 6. Hyperlipidemia; statin 7. 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 Diabetes, II 9. Leukocytosis; fevers 10. H/o bilateral subclavian stenosis s/p left subclavian sent placement complicated by retroperitoneal hematoma s/p evacuation in 08/2015. 11. New AFIB with RVR: maintaining SR with PACs 12. Protein malnutrition 13. anemia: Hgb at 8.4 Recommendations 1. ASA, statin 2. Metoprolol for rate control/ Titrate off cardene 3. Amiodarone for rhyhtm maintenance 4. SQ heparin 5. Fluid offloading via HD. Defer lasix to nephrology 6. Ongoing lung optimization, treatment of COVID PNA as per pulm 7. Supportive care Justicifation of Admission Dx: Justifications for Admission: Justification of Admission Dx: Yes Aspiration Pneumonia: Hemodynamic Instability VIDAL RODRIGUEZ MD 05/08/21 1510: CARDIO Progress Notes Assessment Assessment Patient seen and evaluated. I agree with our nurse practitioners assessment and plan. Acute respiratory failure secondary to CHF, s/p intubation. COVID +. Followed by pulmonary and ID. Acute on chronic diastolic CHF Hypertensive urgency; better controlled NSTEMI; trop highest 2.8. Echo last week with preserved LV systolic function with moderate LVH. Most probable type II, demand ischemia in setting of above, although underling ischemic cannot be ruled out Hyperlipidemia; statin ILDA on CKD; requiring HD as per the renal service. Diabetes, II H/o bilateral subclavian stenosis s/p left subclavian sent placement complicated by retroperitoneal hematoma s/p evacuation in 08/2015. New AFIB with RVR: maintaining SR with PACs [employer] May 08, 2021 11:38 VIDAL RODRIGUEZ MD May 08, 2021 15:10
[2021-05-08] MEDS: CEFEPIME HCL IV Push 1 GM VIAL. IVP SCH (16:18)
[2021-05-08] MEDS: ATORVASTATIN CALCIUM 40 MG TABLET. PO SCH (21:24)
[2021-05-08] MEDS: MONTELUKAST SODIUM 10 MG TABLET. PO SCH (21:24)
[2021-05-08] MEDS: INSULIN GLARGINE SYRINGE. SQ SCH (21:27)
[2021-05-09] VITALS (25 sets, daily range): BP systolic 88–202; BP diastolic 43–84
[2021-05-09] MEDS: METOPROLOL IV PUSH 5 MG/5 ML VIAL. IVP SCH ×4 (00:19→18:00)
[2021-05-09] MEDS: INSULIN LISPRO 300 UNITS/3 ML VIAL. SQ SCH ×4 (00:20→17:36)
[2021-05-09] MEDS: PROPOFOL 100 ML IV PRN ×6 (02:01→21:09)
[2021-05-09] MEDS: FUROSEMIDE 40 MG/4 ML VIAL. IVP SCH ×3 (06:03→21:09)
[2021-05-09] MEDS: HEPARIN for SUB-Q USE 5,000 UNIT/ML VIAL. SQ SCH ×3 (06:04→21:10)
--- NOTE | 2021-05-09 06:13 | PDOC ---
PULMONARY PROGRESS NOTES DATE: 05/09/21 TIME: 06:11 Subjective intubated/sedated Currently on 40%, 5 of PEEP remains on cardene gtt Patient was unable to tolerate decrease in sedation 05/08/21, nursing reports incr eased respiratory rate and blood pressure No overnight concerns Vitals Vital Signs Date Time Temp Pulse Resp B/P (MAP) Pulse Ox O2 Delivery O2 Flow Rate FiO2 05/09/21 06:04 82 202/74 05/09/21 04:54 98 Ventilator 05/09/21 03:00 20 05/09/21 00:00 97.5 97.5 Comments Visual exam done due to COVID-19. Intubated and sedated No paradoxical breathing. Labs Laboratory Tests Test 05/07/21 06:25 05/07/21 06:32 05/07/21 08:00 05/07/21 16:13 Sodium Level 133 mmol/L (136-145) Potassium Level 3.3 mmol/L (3.5-5.1) Chloride Level 95 mmol/L (98-107) Carbon Dioxide Level 27 mmol/L (21-32) Anion Gap 11 (6-14) Blood Urea Nitrogen 62 mg/dL (8-26) Creatinine 3.0 mg/dL (0.7-1.3) Estimated GFR (Cockcroft-Gault) 24.9 BUN/Creatinine Ratio 21 (6-20) Glucose Level 197 mg/dL (70-99) Calcium Level 8.5 mg/dL (8.5-10.1) Total Bilirubin 0.4 mg/dL (0.2-1.0) Aspartate Amino Transf (AST/SGOT) 46 U/L (15-37) Alanine Aminotransferase (ALT/SGPT) 18 U/L (16-63) Alkaline Phosphatase 64 U/L (46-116) Total Protein 5.6 g/dL (6.4-8.2) Albumin 1.5 g/dL (3.4-5.0) Albumin/Globulin Ratio 0.4 (1.0-1.7) Glucose (Fingerstick) 199 mg/dL (70-99) 184 mg/dL (70-99) O2 Saturation 93 % (92-99) Arterial Blood pH 7.47 (7.35-7.45) Arterial Blood pCO2 at Patient Temp 34 mmHg (35-46) Arterial Blood pO2 at Patient Temp 69 mmHg (65-108) Arterial Blood HCO3 24 mmol/L (21-28) Arterial Blood Base Excess 1 mmol/L (-3-3) FiO2 40 Test 05/07/21 19:51 05/07/21 23:55 05/08/21 05:45 05/08/21 06:00 Glucose (Fingerstick) 181 mg/dL (70-99) 197 mg/dL (70-99) 198 mg/dL (70-99) White Blood Count 19.0 x10^3/uL (4.0-11.0) Red Blood Count 3.00 x10^6/uL (4.30-5.70) Hemoglobin 7.8 g/dL (13.0-17.5) Hematocrit 24.6 % (39.0-53.0) Mean Corpuscular Volume 82 fL (79-100) Mean Corpuscular Hemoglobin 26 pg (25-35) Mean Corpuscular Hemoglobin Concent 32 g/dL (31-37) Red Cell Distribution Width 16.0 % (11.5-14.5) Platelet Count 358 x10^3/uL (140-400) Neutrophils (%) (Auto) 80 % (31-73) Lymphocytes (%) (Auto) 9 % (24-48) Monocytes (%) (Auto) 9 % (0-9) Eosinophils (%) (Auto) 1 % (0-3) Basophils (%) (Auto) 0 % (0-3) Neutrophils # (Auto) 15.2 x10^3/uL (1.8-7.7) Lymphocytes # (Auto) 1.8 x10^3/uL (1.0-4.8) Monocytes # (Auto) 1.7 x10^3/uL (0.0-1.1) Eosinophils # (Auto) 0.2 x10^3/uL (0.0-0.7) Basophils # (Auto) 0.0 x10^3/uL (0.0-0.2) Segmented Neutrophils % 84 % (35-66) Band Neutrophils % 1 % (0-9) Lymphocytes % 10 % (24-48) Monocytes % 3 % (0-10) Eosinophils % 2 % (0-5) Platelet Estimate Adequate (ADEQUATE) Sodium Level 131 mmol/L (136-145) Potassium Level 3.3 mmol/L (3.5-5.1) Chloride Level 96 mmol/L (98-107) Carbon Dioxide Level 27 mmol/L (21-32) Anion Gap 8 (6-14) Blood Urea Nitrogen 41 mg/dL (8-26) Creatinine 2.5 mg/dL (0.7-1.3) Estimated GFR (Cockcroft-Gault) 30.7 Glucose Level 205 mg/dL (70-99) Calcium Level 8.3 mg/dL (8.5-10.1) Test 05/08/21 08:26 05/08/21 12:27 05/08/21 18:05 05/09/21 00:09 O2 Saturation 89 % (92-99) Arterial Blood pH 7.40 (7.35-7.45) Arterial Blood pCO2 at Patient Temp 40 mmHg (35-46) Arterial Blood pO2 at Patient Temp 62 mmHg (65-108) Arterial Blood HCO3 24 mmol/L (21-28) Arterial Blood Base Excess -1 mmol/L (-3-3) FiO2 40 Glucose (Fingerstick) 202 mg/dL (70-99) 168 mg/dL (70-99) 216 mg/dL (70-99) Test 05/09/21 05:59 Glucose (Fingerstick) 176 mg/dL (70-99) Laboratory Tests Test 05/08/21 08:26 05/08/21 12:27 05/08/21 18:05 05/09/21 00:09 O2 Saturation 89 % (92-99) Arterial Blood pH 7.40 (7.35-7.45) Arterial Blood pCO2 at Patient Temp 40 mmHg (35-46) Arterial Blood pO2 at Patient Temp 62 mmHg (65-108) Arterial Blood HCO3 24 mmol/L (21-28) Arterial Blood Base Excess -1 mmol/L (-3-3) FiO2 40 Glucose (Fingerstick) 202 mg/dL (70-99) 168 mg/dL (70-99) 216 mg/dL (70-99) Test 05/09/21 05:59 Glucose (Fingerstick) 176 mg/dL (70-99) Medications Active Scripts Medications Dose Route/Sig Max Daily Dose Days Date Category Glyburide 2.5 Mg Tablet 1 Tab PO DAILY 14 04/19/21 Rx Polyethylene Glycol 3350 17 Gm Powd.pack 17 Gm PO DAILY 04/19/21 Rx Dok (Docusate Sodium) 100 Mg Capsule 100 Mg PO PRN DAILY PRN 30 04/19/21 Rx Bisacodyl 5 Mg Tablet.dr 5 Mg PO PRN DAILY PRN 14 04/19/21 Rx Acetaminophen 325 Mg Tablet 650 Mg PO PRN Q4HRS PRN 14 04/19/21 Rx Aspirin Ec (Aspirin) 81 Mg Tablet.dr 81 Mg PO DAILYWBKFT 04/19/21 Rx Hydralazine Hcl 25 Mg Tablet 25 Mg PO QID 30 04/19/21 Rx Fenofibrate 54 Mg Tablet 1 Tab PO DAILY 04/17/21 Reported Potassium Chloride (Potassium Chloride) 20 Meq Tablet.er 20 Meq PO DAILY 04/17/21 Reported Coreg (Carvedilol) 12.5 Mg Tablet 37.5 Mg PO BIDWMEALS 04/17/21 Reported Rosuvastatin Calcium 40 Mg Tablet 40 Mg PO QHS 04/17/21 Reported Gabapentin (Gabapentin) 100 Mg Capsule 200 Mg PO BID 04/17/21 Reported Montelukast Sodium Tablet (Montelukast Sodium) 10 Mg Tablet 10 Mg PO HS 04/17/21 Reported Protonix (Pantoprazole Sodium) 20 Mg Tablet.dr 2 Tab PO DAILY 04/17/21 Reported Amlodipine Besylate 5 Mg Tablet 5 Mg PO DAILY 04/17/21 Reported Furosemide 40 Mg Tablet 1 Tab PO DAILY 04/17/21 Reported Proair Hfa Inhaler (Albuterol Sulfate) 8.5 Gm Hfa.aer.ad 2 Puff IH PRN Q4-6HRS PRN 04/16/21 Reported Advair 100-50 Diskus (Fluticasone/Salmeterol) 1 Each Disk.w.dev 1 Puff IH BID 04/16/21 Reported Comments Impression . IMPRESSION: 1. Acute hypoxic respiratory failure, multifactorial/COVID-19 viral pneumonia/ARDS 2. Abnormal CT chest with bilateral diffuse interstitial infiltrates without any significant pleural effusion 3. Leukocytosis, sepsis--ongoing ID following 4. Non-ST segment elevation [place] 5. History of tobacco use, suspect COPD, unknown FEV1 6. Chronic kidney disease. Worsening ILDA on CKD, on HD now 7. Metabolic acidosis multifactorial 8. Abnormal chest x-ray 9. Hypoglycemia, continue to monitor 10. Hypotension, suspect volume deficit,/possible sepsis 11. Fever--resolved Plan . Updated 05/09/21 Continue current vent support 20/500/40%/5, attempt sedation vacation, patient did not tolerate reducing sedation 05/08/2021 became very tachypneic and hypertensive Follow ABG/CXR--reviewed no changes Patient has completed full course of steroids Follow ID recs for ABX --Continue cefepime-- Follow cultures Follow nephrology recs-- HD Follow Cardiology recs--preserved LV function, hypertension, currently on Cardene drip Hyperglycemia Per PCP continue TF for nutritional support DVT/GI PPX:subQ heparin D/W RN and RT Pt. is DNR Addendum; patient became hypotensive when sedation was taken off. Had to be r esedated and CPAP trial withheld cct 30 min Updated 05/08/21 Continue current vent support 40% and PEEP of 5, attempt sedation vacation and PS trial, pt. didn't tolerate PS trial 05/07/21 , will re attempt again today Follow ABG/CXR--reviewed no changes DC steroids--has completed full 12 day course Proceed with sedation vacation and PS trial Follow ID recs for ABX --Continue cefepime-- Follow cultures Follow nephrology recs-- HD Follow Cardiology recs--preserved LV function continue TF for nutritional support DVT/GI PPX:subQ heparin D/W RN and RT Pt. is DNR cct 30 min Updated 05/07/21 Continue current vent support 40% and PEEP of 5, attempt sedation vacation and PS trial, pt. didn't tolerate PS trial 05/06/21 Follow ABG/CXR--reviewed no changes DC steroids--has completed full 12 day course Proceed with sedation vacation and PS trial Follow ID recs for ABX --Continue cefepime-- Follow cultures Follow nephrology recs-- HD Follow Cardiology recs--preserved LV function continue TF for nutritional support DVT/GI PPX:subQ heparin D/W RN and RT Pt. is DNR JONES FISHMAN MD May 09, 2021 06:13
[2021-05-09 06:19] LABS: BASO # 0.1 x10^3/uL (0.0-0.2); BASO % 0 % (0-3); EOS # 0.3 x10^3/uL (0.0-0.7); EOS % 1 % (0-3); HEMATOCRIT 25.1 % (39.0-53.0); HEMOGLOBIN 8.2 g/dL (13.0-17.5); LYMPH # 1.4 x10^3/uL (1.0-4.8); LYMPH % 7 % (24-48); MEAN CORPUSCULAR HEMOGLOBIN 27 pg (25-35); MEAN CORPUSCULAR HGB CONC 33 g/dL (31-37); MEAN CORPUSCULAR VOLUME 82 fL (79-100); MONO # 1.5 x10^3/uL (0.0-1.1); MONO % 7 % (0-9); NEUT # 16.5 x10^3/uL (1.8-7.7); NEUT % 84 % (31-73); PLATELET COUNT 344 x10^3/uL (140-400); RED BLOOD COUNT 3.08 x10^6/uL (4.30-5.70); RED CELL DISTRIBUTION WIDTH 15.8 % (11.5-14.5); WHITE BLOOD COUNT 19.8 x10^3/uL (4.0-11.0)
[2021-05-09 06:43] LABS: ALBUMIN 1.9 g/dL (3.4-5.0); ALBUMIN/GLOBULIN RATIO 0.5 (1.0-1.7); CALCIUM 8.5 mg/dL (8.5-10.1); CREATININE 2.7 mg/dL (0.7-1.3); GFR 28.1; POTASSIUM 3.1 mmol/L (3.5-5.1); TOTAL BILIRUBIN 0.6 mg/dL (0.2-1.0)
[2021-05-09 07:48] LABS: BASE EXCESS ABG -2 mmol/L (-3-3); HCO3 ABG 22 mmol/L (21-28); PCO2 ABG 35 mmHg (35-46); PO2 ABG 60 mmHg (65-108); SAT O2 ABG 90 % (92-99)
--- NOTE | 2021-05-09 07:48 | PDOC ---
Infectious Disease Note Subjective Subjective Patient intubated/sedated ROS ROS no n/v/d/ Vital Sign Vital Signs Vital Signs Date Time Temp Pulse Resp B/P (MAP) Pulse Ox O2 Delivery O2 Flow Rate FiO2 05/09/21 07:00 47 20 111/47 (68) 97 Ventilator 05/09/21 04:00 97.5 97.5 Physical Exam PHYSICAL EXAM GENERAL: Well-developed and well-nourished male, intubated, sedated. HEENT: Normocephalic, atraumatic, and anicteric. ETT and OGT present. NECK: Right IJ removed, right dialysis catheter present clean HEART: S1, S2. LUNGS: Decreased breath sounds. ABDOMEN: Soft, obese, bowel sounds present. GENITOURINARY: Nieves in place. EXTREMITIES: Edema present. DERMATOLOGIC: Warm, dry, no generalized rash. NEUROLOGIC: Intubated. PSYCHIATRIC: Unable to obtain. Labs Lab Laboratory Tests Test 05/08/21 08:26 05/08/21 12:27 05/08/21 18:05 05/09/21 00:09 O2 Saturation 89 % (92-99) Arterial Blood pH 7.40 (7.35-7.45) Arterial Blood pCO2 at Patient Temp 40 mmHg (35-46) Arterial Blood pO2 at Patient Temp 62 mmHg (65-108) Arterial Blood HCO3 24 mmol/L (21-28) Arterial Blood Base Excess -1 mmol/L (-3-3) FiO2 40 Glucose (Fingerstick) 202 mg/dL (70-99) 168 mg/dL (70-99) 216 mg/dL (70-99) Test 05/09/21 05:59 05/09/21 06:10 Glucose (Fingerstick) 176 mg/dL (70-99) White Blood Count 19.8 x10^3/uL (4.0-11.0) Red Blood Count 3.08 x10^6/uL (4.30-5.70) Hemoglobin 8.2 g/dL (13.0-17.5) Hematocrit 25.1 % (39.0-53.0) Mean Corpuscular Volume 82 fL (79-100) Mean Corpuscular Hemoglobin 27 pg (25-35) Mean Corpuscular Hemoglobin Concent 33 g/dL (31-37) Red Cell Distribution Width 15.8 % (11.5-14.5) Platelet Count 344 x10^3/uL (140-400) Neutrophils (%) (Auto) 84 % (31-73) Lymphocytes (%) (Auto) 7 % (24-48) Monocytes (%) (Auto) 7 % (0-9) Eosinophils (%) (Auto) 1 % (0-3) Basophils (%) (Auto) 0 % (0-3) Neutrophils # (Auto) 16.5 x10^3/uL (1.8-7.7) Lymphocytes # (Auto) 1.4 x10^3/uL (1.0-4.8) Monocytes # (Auto) 1.5 x10^3/uL (0.0-1.1) Eosinophils # (Auto) 0.3 x10^3/uL (0.0-0.7) Basophils # (Auto) 0.1 x10^3/uL (0.0-0.2) Sodium Level 129 mmol/L (136-145) Potassium Level 3.1 mmol/L (3.5-5.1) Chloride Level 94 mmol/L (98-107) Carbon Dioxide Level 26 mmol/L (21-32) Anion Gap 9 (6-14) Blood Urea Nitrogen 46 mg/dL (8-26) Creatinine 2.7 mg/dL (0.7-1.3) Estimated GFR (Cockcroft-Gault) 28.1 BUN/Creatinine Ratio 17 (6-20) Glucose Level 178 mg/dL (70-99) Calcium Level 8.5 mg/dL (8.5-10.1) Total Bilirubin 0.6 mg/dL (0.2-1.0) Aspartate Amino Transf (AST/SGOT) 57 U/L (15-37) Alanine Aminotransferase (ALT/SGPT) 44 U/L (16-63) Alkaline Phosphatase 74 U/L (46-116) Total Protein 6.0 g/dL (6.4-8.2) Albumin 1.9 g/dL (3.4-5.0) Albumin/Globulin Ratio 0.5 (1.0-1.7) Micro Microbiology 05/04/21 Gram Stain Evaluation - Final, Resulted 05/04/21 Respiratory Culture - Preliminary, Resulted 05/04/21 Gram Stain - Final, Resulted 05/04/21 Aerobic Culture - Preliminary, Resulted 05/04/21 Blood Culture - Preliminary, Resulted NO GROWTH AFTER 2 DAYS Objective Assessment 1. Febrile illness could be healthcare-associated infection 2. Leukocytosis, on steroids. 3. COVID-19 pneumonia. 4. Acute hypoxic respiratory failure status post intubation. 5. Congestive heart failure, acute on chronic. 6. Acute kidney injury on chronic kidney disease on hemodialysis. 7. Diabetes mellitus 2. 8. Atrial fibrillation. 9. Anemia. 10. Protein-calorie malnutrition. 11. Hypertention Plan Plan of Care 1. Continue cefepime , 2. Follow-up labs and cultures 3. Change central line and send cath tip for cultures. 4. Check C. difficile PCR 5. Continue supportive care. 6. Critically ill. Discussed with nursing staff JAD RIVERO MD May 09, 2021 07:48
[2021-05-09 08:22] LABS: FIO2 ABG 40
--- NOTE | 2021-05-09 09:00 | PDOC ---
PROGRESS NOTES Date of Service: DATE: 05/09/21 TIME: 09:00 Chief Complaint Chief Complaint Respiratory failure requiring intubation COVID-19 Acute WI A. fib SIRS Hypertension with hypertensive urgency Hyperlipidemia CKD Diabetes History of bilateral subclavian stenosis History of marijuana use Severe protein calorie malnutrition History of Present Illness History of Present Illness 05/09/2021 VENT [id number]%, 5 of PEEP Mild pulmonary edema with new small right pleural effusion and basilar opacities now on cardene gtt prn Patient seen and examined in the [facility]19 ICU remains mechanically ventilated ILDA on CKD - ATN 2/2 sepsis/ Hypotension,UOP good,on IV Lasix ; requiring dialysis, Sedated with propofol Dex and fentanyl Chart reviewed Discussed with RN He remains critically ill intubated/sedated cont cardene gtt not able to tolerate PS trial 05/06/21 Change central line and send cath tip for cultures. 05-09 C. difficile PCR JONES FISHMAN MD,ADELSO DASILVA MD, MD ORDERED: BCULT Procedure Result BLOOD CULTURE Preliminary NO GROWTH AFTER 2 DAYS BLOOD CULTURE Preliminary NO GROWTH AFTER 4 DAYS 37 min cc time 05/08/2021 Currently on 40%, 5 of PEEP now on cardene gtt Patient seen and examined in the [place] [address] ICU remains mechanically ventilated ILDA on CKD - ATN 2/2 sepsis/ Hypotension,UOP good,on IV Lasix ; requiring dialysis, AC/20/500/40 percent with 5 of PEEP Sedated with propofol Dex and fentanyl Chart reviewed Discussed with RN He remains critically ill intubated/sedated cont cardene gtt not able to tolerate PS trial 05/06/21 JONES FISHMAN MD,BRIAN AVILA,ADELSO POTTER ORDERED: BCULT Procedure Result BLOOD CULTURE Preliminary NO GROWTH AFTER 2 DAYS BLOOD CULTURE Preliminary NO GROWTH AFTER 4 DAYS 33 min cc time 05/07/2021 Patient seen and examined in the [place] [address] ICU He remains mechanically ventilated ILDA on CKD - ATN 2/2 sepsis/ Hypotension,UOP good,on IV Lasix ; requiring dialysis, AC/20/500/40 percent with 5 of PEEP Sedated with propofol Dex and fentanyl Chart reviewed Discussed with RN He remains critically ill intubated/sedated cont cardene gtt not able to tolerate PS trial 05/06/21 JONES FISHMAN MD,BRIAN AVILA,ADELSO POTTER ORDERED: BCULT Procedure Result BLOOD CULTURE Preliminary NO GROWTH AFTER 2 DAYS ------ ------ 36 min cc time 05/06/2021 Patient seen and examined in the [place] [address] ICU He remains mechanically ventilated AC/20/500/40 percent with 5 of PEEP Sedated with propofol Dex and fentanyl Chart reviewed Discussed with RN He remains critically ill 05/05/2020 Patient seen and examined in the [facility] [address] ICU He remains on the vent AC/20/500/40 percent with 5 of PEEP Discussed with RN Chart reviewed Has SCDs in place Nieves to bedside drainage He remains critically ill 05/04/2021 Patient seen and examined in the [place] [facility] [address] ICU Still intubated Sedated with propofol and fentanyl AC/20/500/70 percent with 5 of PEEP On dialysis currently Has SCDs in Nieves to bedside drainage Discussed with RN Chart reviewed 05/03/2021 Patient seen and examined in the [place] [address] ICU He is still intubated AC/20/500/70 percent with 5 of PEEP Has SCDs in place Nieves to bedside drainage Sedated with fentanyl Versed and propofol Discussed are Chart reviewed Remains critically ill 05/02/2021 Patient seen and examined in the [place] [address] ICU He is sedated with propofol fentanyl and Versed Ventilator settings as follow AC/20/500/40 percent with 5 of PEEP Has Nieves to bedside drainage Chart reviewed Discussed with RN He remains critically ill 05/01/2021 Patient seen and examined in the [place] [address] ICU He is still intubated AC/20/500/40 percent with 5 of PEEP In A. fib Sedated with propofol fentanyl and Versed Has a heparin drip Missy with RN Chart reviewed He remains critically 04/30/2020 Patient seen and examined in the [place] [address] ICU He remains on the vent AC/20/500/40 5% with 5 PEEP Currently on dialysis Has OG feeds running Has a Nieves to bedside drainage Sedated with propofol and fentanyl Reviewed chart Discussed with RN He remains critically ill Mr Cunha is a 75 yo male w/ PMHx CAD, HTN, Hyperlipidemia, subclavian steel s yndrome, subclavian stenosis s/p left subclavian sent placement complicated by retroperitoneal hematoma s/p evacuation in 08/2015), asthma, BART, CKD, DM2 who presented from home with home health care noted that he was short of breath and valverde with O2 saturations less than 89% as low as 84% not improved with nasal cannulated oxygen placed on CPAP and brought to ED for further care. He was just discharged from the hospital a week ago on April 19, 2021 for abdominal pain and was going for further cardiac testing with outpatient stress testing scheduled on May 28, 2021. Had echocardiogram April 17, 2021 with normal-appearing EF with moderate concentric LVH no significant valvular abnormalities. WBC 20, Hb 10.7, platelets 268, NA 140, K3.8, BUN 21, CR 2.9, glucose 162, albumin 3, troponin I 1.372, NT proBNP 33,318. EKG appears sinus tachycardia rate of 105 bpm with multiple PACs small ST depressions in lead II and V5. TWI in V6. Chest radiograph with diffuse interstitial and alveolar opacities and ET tube 5.8 cm above the leilani. Due to worsening respiratory status ED physician elected to intubate patient. Seen postintubation. Blood pressure little low after propofol bolus, but improved. Significant white frothy sputum per ET tube. Admitted to ICU for further care 04/29/2021: Afebrile, remains on vent at FiO2 45%, PEEP 5. WBC 20.4. Hemodialysis per nephrology. We will continue treatment with empiric antibiotics, remdesivir, and steroids. Continue heparin infusion and supportive care. Critical care time 30 minutes reviewing chart, review labs, review imaging, discussion with RN. 04/28/2021: Afebrile. FiO2 50%, PEEP 5. Nontunneled HD catheter placed yesterday due to worsening kidney function; eGFR 16 (CKD4). Chest x-ray showed unchanged interstitial opacities. Continue empiric antibiotics, steroids, and remdesivir. Continue heparin infusion, and continue to follow cardiology recomm endations on new diagnosis of A. fib. Critical care time 30 minutes reviewing chart, review labs, review imaging, discussion with RN. 04/27/2021: Afebrile. On vent with FiO2 50%, PEEP 5. Troponin 2.8 yesterday; probable type II, demand ischemia. New onset A. fib. Continue heparin drip and as needed digoxin, per cardiology. Continue treatment with remdesivir, steroids, and prophylactic antibiotics. CBG 323 this morning; will add basal insulin. Critical care 30 minutes spent reviewing labs, reviewing imaging, reviewing charts, and discussion with RN. 04/26/2021: COVID-19 positive. Febrile overnight that was managed with cooling blankets. On vent with FiO2 50%, PEEP 5. Per cardiology, elevated troponins likely secondary to demand ischemia; continue heparin drip per cardiology. Maintain fluid balance and avoid nephrotoxins. Continue treatment with remdesivir, steroids, and prophylactic antibiotics. 30 minutes critical care time spent reviewing charts, reviewing labs, reviewing imaging, and discussion with RN. 04/25/2021: On vent FiO2 50, PEEP 5. Febrile, T-max 103.3. Patient was initiated on cooling blankets. Procalcitonin 0.13. Continue coverage for hospital-acquired pneumonia with cefepime. MRSA PCR pending. Critical care time 30 minutes spent reviewing charts, reviewing labs, review of imaging, discussion with RN. Vitals Vitals Vital Signs Date Time Temp Pulse Resp B/P (MAP) Pulse Ox O2 Delivery O2 Flow Rate FiO2 05/09/21 07:32 98 Ventilator 05/09/21 07:00 47 20 111/47 (68) 05/09/21 04:00 97.5 97.5 Physical Exam Physical Exam GENERAL: Well-developed and well-nourished male, intubated, sedated. HEENT: Normocephalic, atraumatic, and anicteric. ETT and OGT present. NECK: Right IJ removed, right dialysis catheter present clean HEART: S1, S2. LUNGS: Decreased breath sounds. ABDOMEN: Soft, obese, bowel sounds present. GENITOURINARY: Nieves in place. EXTREMITIES: Edema present. DERMATOLOGIC: Warm, dry, no generalized rash. NEUROLOGIC: Intubated. PSYCHIATRIC: Unable to obtain. General: Other (Intubated sedated) Heart: Other (Tachycardic) Abdomen: Soft, Other (obese) Extremities: No cyanosis, Other (trace LE edema ) Skin: No rashes, No breakdown, No significant lesion Labs LABS Laboratory Tests Test 05/08/21 12:27 05/08/21 18:05 05/09/21 00:09 05/09/21 05:59 Glucose (Fingerstick) 202 mg/dL (70-99) 168 mg/dL (70-99) 216 mg/dL (70-99) 176 mg/dL (70-99) Test 05/09/21 06:10 05/09/21 07:43 White Blood Count 19.8 x10^3/uL (4.0-11.0) Red Blood Count 3.08 x10^6/uL (4.30-5.70) Hemoglobin 8.2 g/dL (13.0-17.5) Hematocrit 25.1 % (39.0-53.0) Mean Corpuscular Volume 82 fL (79-100) Mean Corpuscular Hemoglobin 27 pg (25-35) Mean Corpuscular Hemoglobin Concent 33 g/dL (31-37) Red Cell Distribution Width 15.8 % (11.5-14.5) Platelet Count 344 x10^3/uL (140-400) Neutrophils (%) (Auto) 84 % (31-73) Lymphocytes (%) (Auto) 7 % (24-48) Monocytes (%) (Auto) 7 % (0-9) Eosinophils (%) (Auto) 1 % (0-3) Basophils (%) (Auto) 0 % (0-3) Neutrophils # (Auto) 16.5 x10^3/uL (1.8-7.7) Lymphocytes # (Auto) 1.4 x10^3/uL (1.0-4.8) Monocytes # (Auto) 1.5 x10^3/uL (0.0-1.1) Eosinophils # (Auto) 0.3 x10^3/uL (0.0-0.7) Basophils # (Auto) 0.1 x10^3/uL (0.0-0.2) Sodium Level 129 mmol/L (136-145) Potassium Level 3.1 mmol/L (3.5-5.1) Chloride Level 94 mmol/L (98-107) Carbon Dioxide Level 26 mmol/L (21-32) Anion Gap 9 (6-14) Blood Urea Nitrogen 46 mg/dL (8-26) Creatinine 2.7 mg/dL (0.7-1.3) Estimated GFR (Cockcroft-Gault) 28.1 BUN/Creatinine Ratio 17 (6-20) Glucose Level 178 mg/dL (70-99) Calcium Level 8.5 mg/dL (8.5-10.1) Total Bilirubin 0.6 mg/dL (0.2-1.0) Aspartate Amino Transf (AST/SGOT) 57 U/L (15-37) Alanine Aminotransferase (ALT/SGPT) 44 U/L (16-63) Alkaline Phosphatase 74 U/L (46-116) Total Protein 6.0 g/dL (6.4-8.2) Albumin 1.9 g/dL (3.4-5.0) Albumin/Globulin Ratio 0.5 (1.0-1.7) O2 Saturation 90 % (92-99) Arterial Blood pH 7.42 (7.35-7.45) Arterial Blood pCO2 at Patient Temp 35 mmHg (35-46) Arterial Blood pO2 at Patient Temp 60 mmHg (65-108) Arterial Blood HCO3 22 mmol/L (21-28) Arterial Blood Base Excess -2 mmol/L (-3-3) FiO2 40 Assessment and Plan Assessmemt and Plan Problems Medical Problems: (1) Elevated troponin Status: Acute (2) Person under investigation for COVID-19 Status: Acute (3) Pulmonary edema Status: Acute Comment Review of Relevant I have reviewed the following items juanita (where applicable) has been applied. Labs Laboratory Tests Test 05/07/21 16:13 05/07/21 19:51 05/07/21 23:55 05/08/21 05:45 Glucose (Fingerstick) 184 mg/dL (70-99) 181 mg/dL (70-99) 197 mg/dL (70-99) 198 mg/dL (70-99) Test 05/08/21 06:00 05/08/21 08:26 05/08/21 12:27 05/08/21 18:05 White Blood Count 19.0 x10^3/uL (4.0-11.0) Red Blood Count 3.00 x10^6/uL (4.30-5.70) Hemoglobin 7.8 g/dL (13.0-17.5) Hematocrit 24.6 % (39.0-53.0) Mean Corpuscular Volume 82 fL (79-100) Mean Corpuscular Hemoglobin 26 pg (25-35) Mean Corpuscular Hemoglobin Concent 32 g/dL (31-37) Red Cell Distribution Width 16.0 % (11.5-14.5) Platelet Count 358 x10^3/uL (140-400) Neutrophils (%) (Auto) 80 % (31-73) Lymphocytes (%) (Auto) 9 % (24-48) Monocytes (%) (Auto) 9 % (0-9) Eosinophils (%) (Auto) 1 % (0-3) Basophils (%) (Auto) 0 % (0-3) Neutrophils # (Auto) 15.2 x10^3/uL (1.8-7.7) Lymphocytes # (Auto) 1.8 x10^3/uL (1.0-4.8) Monocytes # (Auto) 1.7 x10^3/uL (0.0-1.1) Eosinophils # (Auto) 0.2 x10^3/uL (0.0-0.7) Basophils # (Auto) 0.0 x10^3/uL (0.0-0.2) Segmented Neutrophils % 84 % (35-66) Band Neutrophils % 1 % (0-9) Lymphocytes % 10 % (24-48) Monocytes % 3 % (0-10) Eosinophils % 2 % (0-5) Platelet Estimate Adequate (ADEQUATE) Sodium Level 131 mmol/L (136-145) Potassium Level 3.3 mmol/L (3.5-5.1) Chloride Level 96 mmol/L (98-107) Carbon Dioxide Level 27 mmol/L (21-32) Anion Gap 8 (6-14) Blood Urea Nitrogen 41 mg/dL (8-26) Creatinine 2.5 mg/dL (0.7-1.3) Estimated GFR (Cockcroft-Gault) 30.7 Glucose Level 205 mg/dL (70-99) Calcium Level 8.3 mg/dL (8.5-10.1) O2 Saturation 89 % (92-99) Arterial Blood pH 7.40 (7.35-7.45) Arterial Blood pCO2 at Patient Temp 40 mmHg (35-46) Arterial Blood pO2 at Patient Temp 62 mmHg (65-108) Arterial Blood HCO3 24 mmol/L (21-28) Arterial Blood Base Excess -1 mmol/L (-3-3) FiO2 40 Glucose (Fingerstick) 202 mg/dL (70-99) 168 mg/dL (70-99) Test 05/09/21 00:09 05/09/21 05:59 05/09/21 06:10 05/09/21 07:43 Glucose (Fingerstick) 216 mg/dL (70-99) 176 mg/dL (70-99) White Blood Count 19.8 x10^3/uL (4.0-11.0) Red Blood Count 3.08 x10^6/uL (4.30-5.70) Hemoglobin 8.2 g/dL (13.0-17.5) Hematocrit 25.1 % (39.0-53.0) Mean Corpuscular Volume 82 fL (79-100) Mean Corpuscular Hemoglobin 27 pg (25-35) Mean Corpuscular Hemoglobin Concent 33 g/dL (31-37) Red Cell Distribution Width 15.8 % (11.5-14.5) Platelet Count 344 x10^3/uL (140-400) Neutrophils (%) (Auto) 84 % (31-73) Lymphocytes (%) (Auto) 7 % (24-48) Monocytes (%) (Auto) 7 % (0-9) Eosinophils (%) (Auto) 1 % (0-3) Basophils (%) (Auto) 0 % (0-3) Neutrophils # (Auto) 16.5 x10^3/uL (1.8-7.7) Lymphocytes # (Auto) 1.4 x10^3/uL (1.0-4.8) Monocytes # (Auto) 1.5 x10^3/uL (0.0-1.1) Eosinophils # (Auto) 0.3 x10^3/uL (0.0-0.7) Basophils # (Auto) 0.1 x10^3/uL (0.0-0.2) Sodium Level 129 mmol/L (136-145) Potassium Level 3.1 mmol/L (3.5-5.1) Chloride Level 94 mmol/L (98-107) Carbon Dioxide Level 26 mmol/L (21-32) Anion Gap 9 (6-14) Blood Urea Nitrogen 46 mg/dL (8-26) Creatinine 2.7 mg/dL (0.7-1.3) Estimated GFR (Cockcroft-Gault) 28.1 BUN/Creatinine Ratio 17 (6-20) Glucose Level 178 mg/dL (70-99) Calcium Level 8.5 mg/dL (8.5-10.1) Total Bilirubin 0.6 mg/dL (0.2-1.0) Aspartate Amino Transf (AST/SGOT) 57 U/L (15-37) Alanine Aminotransferase (ALT/SGPT) 44 U/L (16-63) Alkaline Phosphatase 74 U/L (46-116) Total Protein 6.0 g/dL (6.4-8.2) Albumin 1.9 g/dL (3.4-5.0) Albumin/Globulin Ratio 0.5 (1.0-1.7) O2 Saturation 90 % (92-99) Arterial Blood pH 7.42 (7.35-7.45) Arterial Blood pCO2 at Patient Temp 35 mmHg (35-46) Arterial Blood pO2 at Patient Temp 60 mmHg (65-108) Arterial Blood HCO3 22 mmol/L (21-28) Arterial Blood Base Excess -2 mmol/L (-3-3) FiO2 40 Laboratory Tests Test 05/08/21 12:27 05/08/21 18:05 05/09/21 00:09 05/09/21 05:59 Glucose (Fingerstick) 202 mg/dL (70-99) 168 mg/dL (70-99) 216 mg/dL (70-99) 176 mg/dL (70-99) Test 05/09/21 06:10 05/09/21 07:43 White Blood Count 19.8 x10^3/uL (4.0-11.0) Red Blood Count 3.08 x10^6/uL (4.30-5.70) Hemoglobin 8.2 g/dL (13.0-17.5) Hematocrit 25.1 % (39.0-53.0) Mean Corpuscular Volume 82 fL (79-100) Mean Corpuscular Hemoglobin 27 pg (25-35) Mean Corpuscular Hemoglobin Concent 33 g/dL (31-37) Red Cell Distribution Width 15.8 % (11.5-14.5) Platelet Count 344 x10^3/uL (140-400) Neutrophils (%) (Auto) 84 % (31-73) Lymphocytes (%) (Auto) 7 % (24-48) Monocytes (%) (Auto) 7 % (0-9) Eosinophils (%) (Auto) 1 % (0-3) Basophils (%) (Auto) 0 % (0-3) Neutrophils # (Auto) 16.5 x10^3/uL (1.8-7.7) Lymphocytes # (Auto) 1.4 x10^3/uL (1.0-4.8) Monocytes # (Auto) 1.5 x10^3/uL (0.0-1.1) Eosinophils # (Auto) 0.3 x10^3/uL (0.0-0.7) Basophils # (Auto) 0.1 x10^3/uL (0.0-0.2) Sodium Level 129 mmol/L (136-145) Potassium Level 3.1 mmol/L (3.5-5.1) Chloride Level 94 mmol/L (98-107) Carbon Dioxide Level 26 mmol/L (21-32) Anion Gap 9 (6-14) Blood Urea Nitrogen 46 mg/dL (8-26) Creatinine 2.7 mg/dL (0.7-1.3) Estimated GFR (Cockcroft-Gault) 28.1 BUN/Creatinine Ratio 17 (6-20) Glucose Level 178 mg/dL (70-99) Calcium Level 8.5 mg/dL (8.5-10.1) Total Bilirubin 0.6 mg/dL (0.2-1.0) Aspartate Amino Transf (AST/SGOT) 57 U/L (15-37) Alanine Aminotransferase (ALT/SGPT) 44 U/L (16-63) Alkaline Phosphatase 74 U/L (46-116) Total Protein 6.0 g/dL (6.4-8.2) Albumin 1.9 g/dL (3.4-5.0) Albumin/Globulin Ratio 0.5 (1.0-1.7) O2 Saturation 90 % (92-99) Arterial Blood pH 7.42 (7.35-7.45) Arterial Blood pCO2 at Patient Temp 35 mmHg (35-46) Arterial Blood pO2 at Patient Temp 60 mmHg (65-108) Arterial Blood HCO3 22 mmol/L (21-28) Arterial Blood Base Excess -2 mmol/L (-3-3) FiO2 40 Microbiology 05/04/21 Gram Stain Evaluation - Final, Complete 05/04/21 Respiratory Culture - Final, Complete 05/04/21 Gram Stain - Final, Complete 05/04/21 Aerobic Culture - Final, Complete 05/04/21 Blood Culture - Preliminary, Resulted NO GROWTH AFTER 4 DAYS Medications Current Medications Propofol 100 ml @ As Directed STK-MED ONCE IV ; Start 04/24/21 at 12:36; Stop 04/24/21 at 12:36; Status DC Etomidate (Amidate) 20 mg STK-MED ONCE IV ; Start 04/24/21 at 13:38; Stop 04/24/21 at 13:38; Status DC Succinylcholine Chloride (Anectine) 200 mg STK-MED ONCE .ROUTE ; Start 04/24/21 at 13:38; Stop 04/24/21 at 13:38; Status DC Fentanyl Citrate (Fentanyl 2ml Vial) 50 mcg PRN Q1HR PRN IV PAIN; Start 04/24/21 at 14:00; Stop 04/24/21 at 14:14; Status DC Acetaminophen (Tylenol) 650 mg PRN Q6HRS PRN PO Headaches, Temp > 101.5' Last administered on 04/25/21at 17:31; Start 04/24/21 at 14:00 Ondansetron HCl (Zofran) 4 mg PRN Q6HRS PRN IVP NAUSEA/VOMITING; Start 04/24/21 at 14:00; Status Cancel Sodium Chloride (Normal Saline Flush) 3 ml QSHIFT PRN IV AFTER MEDS AND BLOOD DRAWS; Start 04/24/21 at 14:00 Fentanyl Citrate (Fentanyl 2ml Vial) 25 mcg PRN Q1HR PRN IV SEVERE PAIN 7-10; Start 04/24/21 at 14:00; Stop 04/24/21 at 14:14; Status DC Bisacodyl (Dulcolax Supp) 10 mg PRN DAILY PRN [place] CONSTIPATION; Start 04/24/21 at 14:00 Fentanyl Citrate 30 ml @ 0 mls/hr CONT PRN IV SEE PROTOCOL; Start 04/24/21 at 14:00; Stop 04/24/21 at 14:12; Status DC Propofol 100 ml @ 0 mls/hr CONT PRN IV PER PROTOCOL Last administered on 04/24/21at 15:12; Start 04/24/21 at 14:00; Stop 04/24/21 at 15:19; Status DC Chlorhexidine Gluconate (Peridex) 15 ml BID MM Last administered on 04/24/21at 20:49; Start 04/24/21 at 21:00; Stop 04/25/21 at 11:19; Status DC Acetaminophen (Tylenol) 650 mg PRN Q6HRS PRN PO Headaches, Temp > 101.5'; Start 04/24/21 at 14:00; Status Cancel Ondansetron HCl (Zofran) 4 mg PRN Q6HRS PRN IVP NAUSEA/VOMITING; Start 04/24/21 at 14:00 Fentanyl Citrate (Fentanyl 2ml Vial) 25 mcg PRN Q1HR PRN IV SEVERE PAIN 7-10 Last administered on 04/24/21at 16:39; Start 04/24/21 at 14:00 Fentanyl Citrate 30 ml @ 0 mls/hr CONT PRN IV SEE PROTOCOL Last administered on 05/09/21at 05:32; Start 04/24/21 at 14:00 Aspirin (Ecotrin) 81 mg DAILYWBKFT PO Last administered on 05/02/21at 07:20; Start 04/25/21 at 08:00; Stop 05/03/21 at 09:56; Status DC Carvedilol (Coreg) 37.5 mg BIDWMEALS PO ; Start 04/24/21 at 17:00; Stop 04/24/21 at 16:17; Status DC Montelukast Sodium (Singulair) 10 mg HS PO Last administered on 05/08/21at 21:24; Start 04/24/21 at 21:00 Atorvastatin Calcium (Lipitor) 80 mg QHS PO Last administered on 05/08/21at 21:24; Start 04/24/21 at 21:00 Heparin Sodium (Porcine) (Heparin Sodium) 5,000 unit Q8HRS SQ ; Start 04/24/21 at 22:00; Status Cancel Furosemide (Lasix) 40 mg 1X ONCE IVP Last administered on 04/24/21at 16:45; Start 04/24/21 at 15:15; Stop 04/24/21 at 15:19; Status DC Propofol 100 ml @ 0 mls/hr CONT PRN IV PER PROTOCOL Last administered on 05/09/21at 05:31; Start 04/24/21 at 15:30 Carvedilol (Coreg) 3.125 mg BIDWMEALS PO Last administered on 04/25/21at 09:23; Start 04/24/21 at 17:00; Stop 04/25/21 at 15:42; Status DC Cefepime HCl (Maxipime) 2 gm 1X ONCE IVP Last administered on 04/24/21at 18:27; Start 04/24/21 at 16:30; Stop 04/24/21 at 16:31; Status DC Insulin Human Lispro (HumaLOG) 0-9 UNITS Q6HRS SQ Last administered on 05/03/21at 12:24; Start 04/24/21 at 18:00; Stop 05/03/21 at 13:51; Status DC Dextrose (Dextrose 50%-Water Syringe) 12.5 gm PRN Q15MIN PRN IV SEE COMMENTS Last administered on 05/03/21at 04:59; Start 04/24/21 at 16:30; Stop 05/03/21 at 13:54; Status DC Heparin Sodium/ Dextrose 250 ml @ 0 mls/hr CONT PRN IV PER PROTOCOL Last administered on 05/01/21at 05:10; Start 04/24/21 at 16:45; Stop 05/01/21 at 12:32; Status DC Heparin Sodium (Porcine) (Heparin Sodium) 3,200 unit PRN Q6HRS PRN IV FOR UFH LEVEL LESS THAN 0.2 Last administered on 04/24/21at 23:32; Start 04/24/21 at 16:45; Stop 05/01/21 at 12:32; Status DC Cefepime HCl (Maxipime) 1 gm Q12HR IVP Last administered on 04/27/21at 08:09; Start 04/25/21 at 09:00; Stop 04/27/21 at 09:17; Status DC Furosemide (Lasix) 40 mg 1X ONCE IVP ; Start 04/25/21 at 11:30; Stop 04/25/21 at 11:31; Status DC Metoprolol Tartrate (Lopressor Vial) 5 mg 1X ONCE IVP Last administered on 04/25/21at 11:27; Start 04/25/21 at 11:30; Stop 04/25/21 at 11:31; Status DC Info (Anti-Coagulation Monitoring By Pharmacy) 1 each PRN DAILY PRN MC PER PROTOCOL Last administered on 04/26/21at 08:51; Start 04/25/21 at 13:00; Stop 05/02/21 at 07:36; Status DC Digoxin (Lanoxin) 500 mcg 1X ONCE IV Last administered on 04/25/21at 14:52; Start 04/25/21 at 14:45; Stop 04/25/21 at 14:46; Status DC Hydralazine HCl (Apresoline Inj) 10 mg PRN Q4HRS PRN IVP ELEVATED BP, 1ST CHOICE Last administered on 05/04/21at 17:47; Start 04/25/21 at 14:45 Metoprolol Tartrate (Lopressor Vial) 5 mg Q6HRS IVP Last administered on 05/09at 06:04; Start 04/25/21 at 18:00 Dexamethasone Sodium Phosphate (Decadron) 6 mg DAILY IVP Last administered on 05/06/21at 08:38; Start 04/25/21 at 17:00; Stop 05/07/21 at 09:18; Status DC Remdesivir 200 mg/ Sodium Chloride 210 ml @ 210 mls/hr 1X ONCE IV Last administered on 04/25/21at 17:09; Start 04/25/21 at 17:30; Stop 04/25/21 at 18:29; Status DC Remdesivir 100 mg/ Sodium Chloride 230 ml @ 460 mls/hr Q24H IV Last administered on 04/29/21at 13:51; Start 04/26/21 at 17:30; Stop 04/29/21 at 17:59; Status DC Midazolam HCl 100 ml @ 0 mls/hr CONT PRN IV SEE PROTOCOL Last administered on 05/02/21at 19:58; Start 04/26/21 at 07:00 Pantoprazole Sodium (PROTONIX VIAL for IV PUSH) 40 mg DAILYAC IVP Last administered on 05/08/21at 09:30; Start 04/26/21 at 09:30 Norepinephrine Bitartrate 8 mg/ Dextrose 258 ml @ 25.349 mls/ hr CONT PRN IV PER PROTOCOL Last administered on 04/26/21at 17:53; Start 04/26/21 at 12:15; Stop 05/02/21 at 20:53; Status DC Digoxin (Lanoxin) 250 mcg 1X ONCE IV Last administered on 04/26/21at 15:02; Start 04/26/21 at 13:00; Stop 04/26/21 at 13:05; Status DC Amiodarone HCl 150 mg/Dextrose 103 ml @ 618 mls/hr 1X ONCE IV Last administered on 04/27/21at 02:30; Start 04/27/21 at 02:30; Stop 04/27/21 at 02:39; Status DC Amiodarone HCl 450 mg/Dextrose 259 ml @ 33 mls/hr CONT PRN IV SEE I/O RECORD; Start 04/27/21 at 02:30; Stop 04/30/21 at 07:56; Status DC Insulin Glargine (Lantus Syringe) 25 unit QHS SQ Last administered on 05/02/21at 21:23; Start 04/27/21 at 21:00; Stop 05/03/21 at 13:45; Status DC Cefepime HCl (Maxipime) 1 gm Q24H IVP Last administered on 05/03/21at 10:02; Start 04/28/21 at 09:30; Stop 05/03/21 at 13:19; Status DC Sodium Bicarbonate (Sodium Bicarb Adult 8.4% Syr) 50 meq 1X ONCE IV Last administered on 04/27/21at 09:50; Start 04/27/21 at 09:45; Stop 04/27/21 at 09:46; Status DC Lidocaine HCl (Buffered Lidocaine 1%) 3 ml STK-MED ONCE .ROUTE ; Start 04/27/21 at 10:57; Stop 04/27/21 at 10:58; Status DC Amiodarone HCl (Cordarone) 200 mg DAILY PO ; Start 04/27/21 at 12:00; Stop 04/27/21 at 12:29; Status DC Lidocaine HCl (Buffered Lidocaine 1%) 3 ml 1X ONCE INJ Last administered on 04/27/21at 11:15; Start 04/27/21 at 11:15; Stop 04/27/21 at 11:16; Status DC Amiodarone HCl (Cordarone) 200 mg DAILY PO Last administered on 05/08/21at 09:30; Start 04/28/21 at 09:00 Sodium Chloride 1,000 ml @ 1,000 mls/hr Q1H PRN IV hypotension; Start 04/28/21 at 11:00; Stop 04/28/21 at 16:59; Status DC Albumin Human 200 ml @ 200 mls/hr 1X PRN PRN IV Hypotension; Start 04/28/21 at 11:00; Stop 04/28/21 at 16:59; Status DC Sodium Chloride (Normal Saline Flush) 10 ml 1X PRN PRN IV AP catheter pack; Start 04/28/21 at 11:00; Stop 04/29/21 at 10:59; Status DC Sodium Chloride (Normal Saline Flush) 10 ml 1X PRN PRN IV [employer]NA[employer] catheter pack; Start 04/28/21 at 11:00; Stop 04/29/21 at 10:59; Status DC Sodium Chloride 1,000 ml @ 400 mls/hr Q2H30M PRN IV PATENCY; Start 04/28/21 at 11:00; Stop 04/28/21 at 22:59; Status DC Info (PHARMACY MONITORING -- do not chart) 1 each PRN DAILY PRN MC SEE COMMENTS; Start 04/28/21 at 11:00; Status UNV Info (PHARMACY MONITORING -- do not chart) 1 each PRN DAILY PRN MC SEE COMMENTS; Start 04/28/21 at 11:00; Stop 04/30/21 at 22:39; Status DC Magnesium Sulfate 50 ml @ 25 mls/hr PRN DAILY PRN IV for Mag < 1.7 on am labs; Start 04/29/21 at 10:45 Vecuronium [place] (Norcuron Bolus) 6 mg PRN Q6HRS PRN IV VENTILATOR COMPLIANCE; Start 04/30/21 at 11:15 Info (PHARMACY MONITORING -- do not chart) 1 each PRN DAILY PRN MC SEE COMMENTS; Start 04/30/21 at 12:30; Status Cancel Labetalol HCl (Normodyne Iv Push) 20 mg PRN Q2HR PRN IVP HYPERTENSION, 2ND CHOICE Last administered on 05/06/21at 17:19; Start 05/01/21 at 12:30 Heparin Sodium (Porcine) (Heparin Sodium) 5,000 unit Q8HRS SQ Last administered on 05/09/21at 06:04; Start 05/01/21 at 14:00 Furosemide (Lasix) 80 mg 1X ONCE IVP Last administered on 05/02/21at 10:45; Start 05/02/21 at 10:45; Stop 05/02/21 at 10:46; Status DC Furosemide (Lasix) 40 mg Q8HRS IVP Last administered on 05/09/21at 06:03; Start 05/02/21 at 14:00 Sodium Chloride 1,000 ml @ 1,000 mls/hr Q1H PRN IV hypotension; Start 05/02/21 at 11:30; Stop 05/02/21 at 17:29; Status DC Albumin Human 200 ml @ 200 mls/hr 1X PRN PRN IV Hypotension; Start 05/02/21 at 11:30; Stop 05/02/21 at 17:29; Status DC Sodium Chloride (Normal Saline Flush) 10 ml 1X PRN PRN IV AP catheter pack; Start 05/02/21 at 11:30; Stop 05/02/21 at 18:00; Status DC Sodium Chloride (Normal Saline Flush) 10 ml 1X PRN PRN IV MANAGER REAL ESTATE catheter pack; Start 05/02/21 at 11:30; Stop 05/02/21 at 18:00; Status DC Sodium Chloride 1,000 ml @ 400 mls/hr Q2H30M PRN IV PATENCY; Start 05/02/21 at 11:30; Stop 05/02/21 at 23:29; Status DC Info (PHARMACY MONITORING -- do not chart) 1 each PRN DAILY PRN MC SEE COMMENTS; Start 05/02/21 at 11:30; Status UNV Info (PHARMACY MONITORING -- do not chart) 1 each PRN DAILY PRN MC SEE COMMENTS; Start 05/02/21 at 11:30; Status UNV Norepinephrine Bitartrate 8 mg/ Dextrose 258 ml @ 25.852 mls/ hr CONT PRN IV PER PROTOCOL Last administered on 05/02/21at 21:22; Start 05/02/21 at 21:00; S top 05/09/21 at 06:10; Status DC Dextrose 1,000 ml @ 50 mls/hr Q20H IV Last administered on 05/03/21at 05:15; Start 05/03/21 at 05:15; Stop 05/03/21 at 13:53; Status DC Aspirin (Aspirin Chewable) 81 mg DAILYWBKFT PO Last administered on 05/08/21at 09:30; Start 05/03/21 at 10:00 Insulin Glargine (Lantus Syringe) 10 unit QHS SQ Last administered on 05/08/21at 21:27; Start 05/03/21 at 21:00 Insulin Human Lispro (HumaLOG) 0-5 UNITS Q6HRS SQ Last administered on 05/09/21at 06:05; Start 05/03/21 at 18:00 Dextrose (Dextrose 50%-Water Syringe) 12.5 gm PRN Q15MIN PRN IV SEE COMMENTS; Start 05/03/21 at 14:00 Sodium Chloride 1,000 ml @ 1,000 mls/hr Q1H PRN IV hypotension; Start 05/04/21 at 07:30; Stop 05/04/21 at 13:29; Status DC Albumin Human 200 ml @ 200 mls/hr 1X PRN PRN IV Hypotension Last administered on 05/04/21at 10:46; Start 05/04/21 at 07:30; Stop 05/04/21 at 13:29; Status DC Sodium Chloride (Normal Saline Flush) 10 ml 1X PRN PRN IV AP catheter pack; Start 05/04/21 at 07:30; Stop 05/05/21 at 07:29; Status DC Sodium Chloride (Normal Saline Flush) 10 ml 1X PRN PRN IV MANAGER [employer] catheter pack; Start 05/04/21 at 07:30; Stop 05/05/21 at 07:29; Status DC Sodium Chloride 1,000 ml @ 400 mls/hr Q2H30M PRN IV PATENCY; Start 05/04/21 at 07:30; Stop 05/04/21 at 19:29; Status DC Info (PHARMACY MONITORING -- do not chart) 1 each PRN DAILY PRN MC SEE COMMENTS; Start 05/04/21 at 07:30; Status UNV Info (PHARMACY MONITORING -- do not chart) 1 each PRN DAILY PRN MC SEE COMMENTS; Start 05/04/21 at 07:30; Stop 05/07/21 at 08:47; Status DC Dexmedetomidine HCl 400 mcg/ Sodium Chloride 100 ml @ 0 mls/hr CONT PRN IV PER PROTOCOL Last administered on 05/08/21at 17:50; Start 05/04/21 at 10:30 Cefepime HCl (Maxipime) 1 gm Q24H IVP Last administered on 05/08/21at 16:18; Start 05/04/21 at 16:00 Daptomycin 600 mg/ Sodium Chloride 50 ml @ 100 mls/hr Q48H IV Last administered on 05/04/21at 15:24; Start 05/04/21 at 15:00; Stop 05/06/21 at 08:07; Status DC Potassium Chloride/Water 100 ml @ 100 mls/hr 1X ONCE IV Last administered on 05/06/21at 09:14; Start 05/06/21 at 08:30; Stop 05/06/21 at 09:29; Status DC Nicardipine HCl 50 mg/Sodium Chloride 250 ml @ 25 mls/hr CONT PRN IV SEE I/O RECORD Last administered on 05/08/21at 21:30; Start 05/06/21 at 18:45 Sodium Chloride 1,000 ml @ 1,000 mls/hr Q1H PRN IV hypotension; Start 05/07/21 at 08:45; Stop 05/07/21 at 14:44; Status DC Albumin Human 200 ml @ 200 mls/hr 1X PRN PRN IV Hypotension Last administered on 05/07/21at 11:41; Start 05/07/21 at 08:45; Stop 05/07/21 at 14:44; Status DC Sodium Chloride 1,000 ml @ 400 mls/hr Q2H30M PRN IV PATENCY; Start 05/07/21 at 08:45; Stop 05/07/21 at 20:44; Status DC Info (PHARMACY MONITORING -- do not chart) 1 each PRN DAILY PRN MC SEE COMMENTS; Start 05/07/21 at 08:45; Status UNV Info (PHARMACY MONITORING -- do not chart) 1 each PRN DAILY PRN MC SEE COMMENTS; Start 05/07/21 at 08:45 Albumin Human 100 ml @ 100 mls/hr 1X ONCE IV ; Start 05/07/21 at 11:45; Stop 05/07/21 at 12:44; Status DC Multi-Ingred Cream/Lotion/Oil/ Oint (Artificial Tears Eye Ointment) 1 danielito PRN Q1HR PRN OU DRY EYE; Start 05/07/21 at 16:00 Potassium Chloride/Water 100 ml @ 100 mls/hr Q1H IV Last administered on 05/08/21at 11:54; Start 05/08/21 at 11:00; Stop 05/08/21 at 12:59; Status DC Active Scripts Active Glyburide 2.5 Mg Tablet 1 Tab PO DAILY 14 Days Polyethylene Glycol 3350 17 Gm Powd.pack 17 Gm PO DAILY 14 Days Dok (Docusate Sodium) 100 Mg Capsule 100 Mg PO PRN DAILY PRN 30 Days Bisacodyl 5 Mg Tablet. 5 Mg PO PRN DAILY PRN 14 Days Acetaminophen 325 Mg Tablet 650 Mg PO PRN Q4HRS PRN 14 Days Aspirin Ec (Aspirin) 81 Mg Tablet.dr 81 Mg PO DAILYWBKFT 30 Days Hydralazine Hcl 25 Mg Tablet 25 Mg PO QID 30 Days Reported Fenofibrate 54 Mg Tablet 1 Tab PO DAILY Potassium Chloride (Potassium Chloride) 20 Meq Tablet.er 20 Meq PO DAILY Coreg (Carvedilol) 12.5 Mg Tablet 37.5 Mg PO BIDWMEALS Rosuvastatin Calcium 40 Mg Tablet 40 Mg PO QHS Gabapentin (Gabapentin) 100 Mg Capsule 200 Mg PO BID Montelukast Sodium Tablet (Montelukast Sodium) 10 Mg Tablet 10 Mg PO HS Protonix (Pantoprazole Sodium) 20 Mg Tablet.dr 2 Tab PO DAILY Amlodipine Besylate 5 Mg Tablet 5 Mg PO DAILY Furosemide 40 Mg Tablet 1 Tab PO DAILY Proair Hfa Inhaler (Albuterol Sulfate) 8.5 Gm Hfa.aer.ad 2 Puff IH PRN Q4-6HRS PRN 21 Days Advair 100-50 Diskus (Fluticasone/Salmeterol) 1 Each Disk.w.dev 1 Puff IH BID Vitals/I & O Vital Sign - Last 24 Hours 05/08/21 05/08/21 05/08/21 05/08/21 09:30 10:00 10:41 11:00 Pulse 78 63 56 Resp 20 20 B/P (MAP) 154/66 91/44 (60) 94/42 (59) Pulse Ox 94 96 95 O2 Delivery Ventilator Ventilator Ventilator 05/08/21 05/08/21 05/08/21 05/08/21 12:00 12:00 12:11 12:29 Temp 99.4 99.4 Pulse 54 79 Resp 20 B/P (MAP) 124/47 (72) 124/47 Pulse Ox 98 96 O2 Delivery Mechanical Ventilator Ventilator Ventilator 05/08/21 05/08/21 05/08/21 05/08/21 13:00 13:55 14:00 15:00 Pulse 62 52 62 Resp 20 20 20 B/P (MAP) 133/50 (77) 111/47 (68) 145/60 (88) Pulse Ox 97 97 97 98 O2 Delivery Ventilator Ventilator Ventilator Ventilator 05/08/21 05/08/21 05/08/21 05/08/21 16:00 16:00 16:18 17:00 Temp 99.4 98.0 99.4 98.0 Pulse 51 53 Resp 20 20 B/P (MAP) 122/57 (78) 132/52 (78) Pulse Ox 98 98 98 O2 Delivery Mechanical Ventilator Ventilator Ventilator Ventilator 05/08/21 05/08/21 05/08/21 05/08/21 18:00 18:09 18:10 19:00 Pulse 56 53 50 Resp 20 20 B/P (MAP) 133/55 (81) 132/52 149/56 (87) Pulse Ox 98 98 98 O2 Delivery Ventilator Ventilator Ventilator 05/08/21 05/08/21 05/08/21 05/08/21 20:00 20:00 20:41 21:00 Temp 97.8 97.8 Pulse 52 52 Resp 20 20 B/P (MAP) 154/58 (90) 144/55 (84) Pulse Ox 98 98 98 O2 Delivery Ventilator Mechanical Ventilator Ventilator Ventilator 05/08/21 05/08/21 05/08/21 05/09/21 22:00 23:00 23:56 00:00 Temp 97.5 97.5 Pulse 50 54 50 Resp 20 20 20 B/P (MAP) 134/58 (83) 120/51 (74) 119/62 (81) Pulse Ox 99 97 98 98 O2 Delivery Ventilator Ventilator Ventilator Ventilator 05/09/21 05/09/21 05/09/21 05/09/21 00:00 00:15 00:19 01:00 Pulse 52 48 Resp 20 B/P (MAP) 137/52 (80) 119/62 136/70 (92) Pulse Ox 98 O2 Delivery Mechanical Ventilator Ventilator 05/09/21 05/09/21 05/09/21 05/09/21 02:00 02:06 03:00 04:00 Pulse 46 45 Resp 20 20 B/P (MAP) 137/58 (84) 142/59 (86) Pulse Ox 98 99 100 O2 Delivery Ventilator Ventilator Ventilator Mechanical Ventilator 05/09/21 05/09/21 05/09/21 05/09/21 04:00 04:54 05:00 06:00 Temp 97.5 97.5 Pulse 44 46 70 Resp 20 20 20 B/P (MAP) 144/58 (86) 144/69 (94) 202/74 (116) Pulse Ox 100 98 100 100 O2 Delivery Ventilator Ventilator Ventilator Ventilator 05/09/21 05/09/21 05/09/21 06:04 07:00 07:32 Pulse 82 47 Resp 20 B/P (MAP) 202/74 111/47 (68) Pulse Ox 97 98 O2 Delivery Ventilator Ventilator Intake and Output 05/08/21 05/08/21 05/09/21 15:00 23:00 07:00 Intake Total 750 ml 2873 ml 1950 ml Output Total 515 ml 785 ml 1225 ml Balance 235 ml 2088 ml 725 ml Justicifation of Admission Dx: Justifications for Admission: Justification of Admission Dx: Yes Aspiration Pneumonia: Hemodynamic Instability ALBA SWAIN MD May 09, 2021 09:00
--- NOTE | 2021-05-09 09:08 | PDOC ---
DATE OF SERVICE DATE: 05/09/21 TIME: 09:07 SUBJECTIVE ROS Remains intubated OBJECTIVE Vital Signs Vital Signs Date Time Temp Pulse Resp B/P (MAP) Pulse Ox O2 Delivery O2 Flow Rate FiO2 05/09/21 07:32 98 Ventilator 05/09/21 07:00 47 20 111/47 (68) 05/09/21 04:00 97.5 97.5 I & 0 Intake and Output 05/09/21 07:00 Intake Total 5573 ml Output Total 2525 ml Balance 3048 ml IV Total 2022 ml Tube Feeding 2041 ml Other 1510 ml Output Urine Total 2525 ml Gastric Drainage Total 0 ml PHYSICAL EXAM Physical Exam GENERAL: intubated, HEENT: anicteric. ETT and OGT present. NECK: , right dialysis catheter+, HEART: S1, S2. LUNGS: Decreased breath sounds. ABDOMEN: Soft,bowel sounds present. GENITOURINARY: Nieves in place. EXTREMITIES: Edema present. DERMATOLOGIC: Warm, dry, no generalized rash. NEUROLOGIC: Intubated. PSYCHIATRIC: Unable to obtain. 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 stable, renal function and UOP. Will Hold off dialysis today - monitor for renal recovery HypoKalemia- , 2/2 furosemide . 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 Recent CT Atrophic appearance of the right kidney. COVID-19 positive - Abnormal CT chest with bilateral diffuse interstitial infiltrates without any significant pleural effusion. Acute respiratory failure with Hypoxia Intubated ; CxR Mild pulmonary edema with new small right pleural effusion and basilar opacities. Unchanged small left pleural effusion and basilar opacities. Atrial Fib- per Cardiology Cholelithiasis Anemia . BETTY held 2/2 Hypercoagulable state Severe HypoAlbuminemia DM II Hypotension - Low BP, at presentation , resolved; Low again this morning, not requiring pressor support HTN- On antihypertensives @ home NSTEMI - possibly demand ischemia SIRS - likely sepsis from HCAP H/o bilateral Subclavian stenosis s/p left subclavian sent placement complicated by retroperitoneal hematoma s/p evacuation in 08/2015. COMMENT/RELEVANT DATA Meds Current Medications Medications (Trade) Dose Ordered Sig/Jodie Start Time Stop Time Status Last Admin Dose Admin Acetaminophen (Tylenol) 650 mg PRN Q6HRS PRN 04/24/21 14:00 Cancel Albumin Human 100 ml @ 100 mls/hr 1X ONCE 05/07/21 11:45 05/07/21 12:44 DC Amiodarone HCl (Cordarone) 200 mg DAILY 04/28/21 09:00 05/08/21 09:30 200 MG Amiodarone HCl 150 mg/Dextrose 103 ml @ 618 mls/hr 1X ONCE 04/27/21 02:30 04/27/21 02:39 DC 04/27/21 02:30 618 MLS/HR Amiodarone HCl 450 mg/Dextrose 259 ml @ 33 mls/hr CONT PRN 04/27/21 02:30 04/30/21 07:56 DC Aspirin (Aspirin Chewable) 81 mg DAILYWBKFT 05/03/21 10:00 05/08/21 09:30 81 MG Aspirin (Ecotrin) 81 mg DAILYWBKFT 04/25/21 08:00 05/03/21 09:56 DC 05/02/21 07:20 81 MG Atorvastatin Calcium (Lipitor) 80 mg QHS 04/24/21 21:00 05/08/21 21:24 80 MG Bisacodyl (Dulcolax Supp) 10 mg PRN DAILY PRN 04/24/21 14:00 Carvedilol (Coreg) 3.125 mg BIDWMEALS 04/24/21 17:00 04/25/21 15:42 DC 04/25/21 09:23 3.125 MG Cefepime HCl (Maxipime) 1 gm Q24H 05/04/21 16:00 05/08/21 16:18 1 GM Chlorhexidine Gluconate (Peridex) 15 ml BID 04/24/21 21:00 04/25/21 11:19 DC 04/24/21 20:49 15 ML Daptomycin 600 mg/ Sodium Chloride 50 ml @ 100 mls/hr Q48H 05/04/21 15:00 05/06/21 08:07 DC 05/04/21 15:24 100 MLS/HR Dexamethasone Sodium Phosphate (Decadron) 6 mg DAILY 04/25/21 17:00 05/07/21 09:18 DC 05/06/21 08:38 6 MG Dexmedetomidine HCl 400 mcg/ Sodium Chloride 100 ml @ 0 mls/hr CONT PRN 05/04/21 10:30 05/08/21 17:50 13.1 MLS/HR Dextrose (Dextrose 50%-Water Syringe) 12.5 gm PRN Q15MIN PRN 05/03/21 14:00 Digoxin (Lanoxin) 250 mcg 1X ONCE 04/26/21 13:00 04/26/21 13:05 DC 04/26/21 15:02 250 MCG Etomidate (Amidate) 20 mg STK-MED ONCE 04/24/21 13:38 04/24/21 13:38 DC Fentanyl Citrate 30 ml @ 0 mls/hr CONT PRN 04/24/21 14:00 05/09/21 05:32 3.75 MLS/HR Fentanyl Citrate (Fentanyl 2ml Vial) 25 mcg PRN Q1HR PRN 04/24/21 14:00 04/24/21 16:39 25 MCG Furosemide (Lasix) 40 mg Q8HRS 05/02/21 14:00 05/09/21 06:03 40 MG Heparin Sodium (Porcine) (Heparin Sodium) 5,000 unit Q8HRS 05/01/21 14:00 05/09/21 06:04 5,000 UNIT Heparin Sodium/ Dextrose 250 ml @ 0 mls/hr CONT PRN 04/24/21 16:45 05/01/21 12:32 DC 05/01/21 05:10 10 MLS/HR Hydralazine HCl (Apresoline Inj) 10 mg PRN Q4HRS PRN 04/25/21 14:45 05/04/21 17:47 10 MG Info (Anti-Coagulation Monitoring By Pharmacy) 1 each PRN DAILY PRN 04/25/21 13:00 05/02/21 07:36 DC 04/26/21 08:51 1 EACH Info (PHARMACY MONITORING -- do not chart) 1 each PRN DAILY PRN 05/07/21 08:45 Insulin Glargine (Lantus Syringe) 10 unit QHS 05/03/21 21:00 05/08/21 21:27 10 UNIT Insulin Human Lispro (HumaLOG) 0-5 UNITS Q6HRS 05/03/21 18:00 05/09/21 06:05 2 UNITS Labetalol HCl (Normodyne Iv Push) 20 mg PRN Q2HR PRN 05/01/21 12:30 05/06/21 17:19 20 MG Lidocaine HCl (Buffered Lidocaine 1%) 3 ml 1X ONCE 04/27/21 11:15 04/27/21 11:16 DC 04/27/21 11:15 3 ML Magnesium Sulfate 50 ml @ 25 mls/hr PRN DAILY PRN 04/29/21 10:45 Metoprolol Tartrate (Lopressor Vial) 5 mg Q6HRS 04/25/21 18:00 05/09/21 06:04 5 MG Midazolam HCl 100 ml @ 0 mls/hr CONT PRN 04/26/21 07:00 05/02/21 19:58 6 MLS/HR Montelukast Sodium (Singulair) 10 mg HS 04/24/21 21:00 05/08/21 21:24 10 MG Multi-Ingred Cream/Lotion/Oil/ Oint (Artificial Tears Eye Ointment) 1 danielito PRN Q1HR PRN 05/07/21 16:00 Nicardipine HCl 50 mg/Sodium Chloride 250 ml @ 25 mls/hr CONT PRN 05/06/21 18:45 05/08/21 21:30 25 MLS/HR Norepinephrine Bitartrate 8 mg/ Dextrose 258 ml @ 25.852 mls/ hr CONT PRN 05/02/21 21:00 05/09/21 06:10 DC 05/02/21 21:22 25.852 MLS/HR Ondansetron HCl (Zofran) 4 mg PRN Q6HRS PRN 04/24/21 14:00 Pantoprazole Sodium (PROTONIX VIAL for IV PUSH) 40 mg DAILYAC 04/26/21 09:30 05/08/21 09:30 40 MG Potassium Chloride/Water 100 ml @ 100 mls/hr Q1H 05/08/21 11:00 05/08/21 12:59 DC 05/08/21 11:54 100 MLS/HR Propofol 100 ml @ 0 mls/hr CONT PRN 04/24/21 15:30 05/09/21 05:31 27.5 MLS/HR Remdesivir 100 mg/ Sodium Chloride 230 ml @ 460 mls/hr Q24H 04/26/21 17:30 04/29/21 17:59 DC 04/29/21 13:51 460 MLS/HR Remdesivir 200 mg/ Sodium Chloride 210 ml @ 210 mls/hr 1X ONCE 04/25/21 17:30 04/25/21 18:29 DC 04/25/21 17:09 210 MLS/HR Sodium Bicarbonate (Sodium Bicarb Adult 8.4% Syr) 50 meq 1X ONCE 04/27/21 09:45 04/27/21 09:46 DC 04/27/21 09:50 50 MEQ Sodium Chloride 1,000 ml @ 400 mls/hr Q2H30M PRN 05/07/21 08:45 05/07/21 20:44 DC Sodium Chloride (Normal Saline Flush) 10 ml 1X PRN PRN 05/04/21 07:30 05/05/21 07:29 DC Succinylcholine Chloride (Anectine) 200 mg STK-MED ONCE 04/24/21 13:38 04/24/21 13:38 DC Vecuronium [place] (Norcuron Bolus) 6 mg PRN Q6HRS PRN 04/30/21 11:15 Lab Laboratory Tests Test 05/08/21 12:27 05/08/21 18:05 05/09/21 00:09 05/09/21 05:59 Glucose (Fingerstick) 202 mg/dL (70-99) 168 mg/dL (70-99) 216 mg/dL (70-99) 176 mg/dL (70-99) Test 05/09/21 06:10 05/09/21 07:43 White Blood Count 19.8 x10^3/uL (4.0-11.0) Red Blood Count 3.08 x10^6/uL (4.30-5.70) Hemoglobin 8.2 g/dL (13.0-17.5) Hematocrit 25.1 % (39.0-53.0) Mean Corpuscular Volume 82 fL (79-100) Mean Corpuscular Hemoglobin 27 pg (25-35) Mean Corpuscular Hemoglobin Concent 33 g/dL (31-37) Red Cell Distribution Width 15.8 % (11.5-14.5) Platelet Count 344 x10^3/uL (140-400) Neutrophils (%) (Auto) 84 % (31-73) Lymphocytes (%) (Auto) 7 % (24-48) Monocytes (%) (Auto) 7 % (0-9) Eosinophils (%) (Auto) 1 % (0-3) Basophils (%) (Auto) 0 % (0-3) Neutrophils # (Auto) 16.5 x10^3/uL (1.8-7.7) Lymphocytes # (Auto) 1.4 x10^3/uL (1.0-4.8) Monocytes # (Auto) 1.5 x10^3/uL (0.0-1.1) Eosinophils # (Auto) 0.3 x10^3/uL (0.0-0.7) Basophils # (Auto) 0.1 x10^3/uL (0.0-0.2) Sodium Level 129 mmol/L (136-145) Potassium Level 3.1 mmol/L (3.5-5.1) Chloride Level 94 mmol/L (98-107) Carbon Dioxide Level 26 mmol/L (21-32) Anion Gap 9 (6-14) Blood Urea Nitrogen 46 mg/dL (8-26) Creatinine 2.7 mg/dL (0.7-1.3) Estimated GFR (Cockcroft-Gault) 28.1 BUN/Creatinine Ratio 17 (6-20) Glucose Level 178 mg/dL (70-99) Calcium Level 8.5 mg/dL (8.5-10.1) Total Bilirubin 0.6 mg/dL (0.2-1.0) Aspartate Amino Transf (AST/SGOT) 57 U/L (15-37) Alanine Aminotransferase (ALT/SGPT) 44 U/L (16-63) Alkaline Phosphatase 74 U/L (46-116) Total Protein 6.0 g/dL (6.4-8.2) Albumin 1.9 g/dL (3.4-5.0) Albumin/Globulin Ratio 0.5 (1.0-1.7) O2 Saturation 90 % (92-99) Arterial Blood pH 7.42 (7.35-7.45) Arterial Blood pCO2 at Patient Temp 35 mmHg (35-46) Arterial Blood pO2 at Patient Temp 60 mmHg (65-108) Arterial Blood HCO3 22 mmol/L (21-28) Arterial Blood Base Excess -2 mmol/L (-3-3) FiO2 40 Results All relevant outside records, renal labs, imaging studies, telemetry/EKG's were reviewed. Justicifation of Admission Dx: Justifications for Admission: Justification of Admission Dx: Yes Aspiration Pneumonia: Hemodynamic Instability JASMEET LAM MD May 09, 2021 09:07
[2021-05-09] MEDS: DEXMEDETOMIDINE 400 MCG in IV NORMAL SALINE 100ML 96 ML IV PRN ×2 (09:19→16:40)
--- NOTE | 2021-05-09 09:49 | PDOC ---
[employer] 05/09/21 0948: CARDIO Progress Notes Date and Time Date of Service 05/09/2021 Time of Evaluation 0910 Subjective Subjective: Other (intubated ) Vitals Vitals Vital Signs Date Time Temp Pulse Resp B/P (MAP) Pulse Ox O2 Delivery O2 Flow Rate FiO2 05/09/21 09:00 77 20 148/84 (105) 99 Ventilator 05/09/21 08:00 94.1 94.1 Weight Weight [ ] Input and Output Intake and Output Intake and Output 05/09/21 07:00 Intake Total 5573 ml Output Total 2525 ml Balance 3048 ml IV Total 2022 ml Tube Feeding 2041 ml Other 1510 ml Output Urine Total 2525 ml Gastric Drainage Total 0 ml Laboratory Labs Laboratory Tests Test 05/08/21 12:27 05/08/21 18:05 05/09/21 00:09 05/09/21 05:59 Glucose (Fingerstick) 202 mg/dL (70-99) 168 mg/dL (70-99) 216 mg/dL (70-99) 176 mg/dL (70-99) Test 05/09/21 06:10 05/09/21 07:43 White Blood Count 19.8 x10^3/uL (4.0-11.0) Red Blood Count 3.08 x10^6/uL (4.30-5.70) Hemoglobin 8.2 g/dL (13.0-17.5) Hematocrit 25.1 % (39.0-53.0) Mean Corpuscular Volume 82 fL (79-100) Mean Corpuscular Hemoglobin 27 pg (25-35) Mean Corpuscular Hemoglobin Concent 33 g/dL (31-37) Red Cell Distribution Width 15.8 % (11.5-14.5) Platelet Count 344 x10^3/uL (140-400) Neutrophils (%) (Auto) 84 % (31-73) Lymphocytes (%) (Auto) 7 % (24-48) Monocytes (%) (Auto) 7 % (0-9) Eosinophils (%) (Auto) 1 % (0-3) Basophils (%) (Auto) 0 % (0-3) Neutrophils # (Auto) 16.5 x10^3/uL (1.8-7.7) Lymphocytes # (Auto) 1.4 x10^3/uL (1.0-4.8) Monocytes # (Auto) 1.5 x10^3/uL (0.0-1.1) Eosinophils # (Auto) 0.3 x10^3/uL (0.0-0.7) Basophils # (Auto) 0.1 x10^3/uL (0.0-0.2) Sodium Level 129 mmol/L (136-145) Potassium Level 3.1 mmol/L (3.5-5.1) Chloride Level 94 mmol/L (98-107) Carbon Dioxide Level 26 mmol/L (21-32) Anion Gap 9 (6-14) Blood Urea Nitrogen 46 mg/dL (8-26) Creatinine 2.7 mg/dL (0.7-1.3) Estimated GFR (Cockcroft-Gault) 28.1 BUN/Creatinine Ratio 17 (6-20) Glucose Level 178 mg/dL (70-99) Calcium Level 8.5 mg/dL (8.5-10.1) Total Bilirubin 0.6 mg/dL (0.2-1.0) Aspartate Amino Transf (AST/SGOT) 57 U/L (15-37) Alanine Aminotransferase (ALT/SGPT) 44 U/L (16-63) Alkaline Phosphatase 74 U/L (46-116) Total Protein 6.0 g/dL (6.4-8.2) Albumin 1.9 g/dL (3.4-5.0) Albumin/Globulin Ratio 0.5 (1.0-1.7) O2 Saturation 90 % (92-99) Arterial Blood pH 7.42 (7.35-7.45) Arterial Blood pCO2 at Patient Temp 35 mmHg (35-46) Arterial Blood pO2 at Patient Temp 60 mmHg (65-108) Arterial Blood HCO3 22 mmol/L (21-28) Arterial Blood Base Excess -2 mmol/L (-3-3) FiO2 40 Microbiology Micro Microbiology 05/04/21 Gram Stain Evaluation - Final, Complete 05/04/21 Respiratory Culture - Final, Complete 05/04/21 Gram Stain - Final, Complete 05/04/21 Aerobic Culture - Final, Complete 05/04/21 Blood Culture - Preliminary, Resulted NO GROWTH AFTER 4 DAYS Review of Systems Constitutional: yes: unresponsive, other (UNABLE TO OBTAIN) Physical Exam HEENT: Neck Supple W Full Motion Chest: Symmetric LUNGS: Other (MV) Heart: RRR (SR with PAC's, PVCs) Abdomen: Other (soft) Extremities: Other (1+ bilateral LE edema ) Neurology: other (sedated) Other [facility] Assessment Assessment 1. Acute respiratory failure secondary to CHF, s/p intubation. COVID + 2. Acute on chronic diastolic CHF 3. Hypertensive urgency; controlled. off cardene 4. NSTEMI; trop highest 2.8. Echo last week with preserved LV systolic function with moderate LVH. Most probable type II, demand ischemia in setting of above, although underling ischemic cannot be ruled out 5. ? CAD; details unknown 6. Hyperlipidemia; statin 7. 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 Diabetes, II 9. Leukocytosis; fevers 10. H/o bilateral subclavian stenosis s/p left subclavian sent placement complicated by retroperitoneal hematoma s/p evacuation in 08/2015. 11. New AFIB with RVR: maintaining SR with PACs 12. Protein malnutrition 13. anemia: Hgb at 8.2 Recommendations 1. ASA, statin 2. Metoprolol for rate control 3. Amiodarone for rhythm maintenance 4. SQ heparin 5. Fluid offloading via HD. Defer lasix to nephrology. Replace K 6. Ongoing lung optimization, treatment of COVID PNA as per pulm 7. Supportive care Justicifation of Admission Dx: Justifications for Admission: Justification of Admission Dx: Yes Aspiration Pneumonia: Hemodynamic Instability VIDAL RODRIGUEZ MD 05/09/21 1245: CARDIO Progress Notes Assessment Assessment Patient seen and evaluated. I agree with our nurse practitioners assessment and plan. Acute respiratory failure secondary to CHF, s/p intubation. COVID +. Continuing present treatments. Followed by pulmonary and ID. Acute on chronic diastolic CHF Hypertensive urgency; controlled. off cardene NSTEMI; trop highest 2.8. Echo last week with preserved LV systolic function wit h moderate LVH. Most probable type II, demand ischemia in setting of above, although underling ischemic cannot be ruled out Hyperlipidemia; statin ILDA on CKD; requiring HD . Fluid management as per renal. Diabetes, II H/o bilateral subclavian stenosis s/p left subclavian sent placement complicated by retroperitoneal hematoma s/p evacuation in 08/2015. New AFIB with RVR: maintaining SR with PACs GALIMBA,JHUNNE M [employer] May 09, 2021 09:48 VIDAL RODRIGUEZ MD May 09, 2021 12:45
[2021-05-09] MEDS: PANTOPRAZOLE IV PUSH 40 MG VIAL. IVP SCH (09:59)
[2021-05-09] MEDS: ASPIRIN CHEWABLE 81 MG TABLET. PO SCH (09:59)
[2021-05-09] MEDS: AMIODARONE HCL 200 MG TABLET. PO SCH (10:00)
[2021-05-09] MEDS: POTASSIUM CHLORIDE 20MEQ 100 ML IV SCH ×2 (10:30→11:43)
--- NOTE | 2021-05-09 14:11 | NUR ---
Wound Care Wound Type/Assessment: Pt seen for wound care follow up for a large, intact blood blister on pt's R plantar foot, remains stable. Reddish purple, blood filled blister, appears stable, periwound intact and clear. Treatment Recommendations/Plan: Skin prep to periwound, foam dressing for protection, change every 3-4 days. Education provided: Patient is vented. Offloading surface/device: wedge, ICU bed, float feet with pillows, end bedrail removed, as it's difficult for pt's feet to avoid touching d/t height. Recommended Referrals/Tests: n/a Discharge Recommendations for dressings: Continue current treatment plan. Unable to complete head to toe assessment, unable to to turn patient per RN. Foot assessment only completed. Wound care will follow up on 05/16/21.
--- NOTE | 2021-05-09 16:19 | NUR ---
SS following up with discharge planning. SS reviewed pt chart and discussed with pt RN. Pt is currently on the vent at 40%. COVID19 positive. Pt on IV Cefepime and IV Lasix. Pt on Propofol and Precedex. Hemodialysis. Not stable. SS will continue to follow for discharge planning.
[2021-05-09] MEDS: CEFEPIME HCL IV Push 1 GM VIAL. IVP SCH (16:41)
[2021-05-09] MEDS: MONTELUKAST SODIUM 10 MG TABLET. PO SCH (21:08)
[2021-05-09] MEDS: ATORVASTATIN CALCIUM 40 MG TABLET. PO SCH (21:08)
[2021-05-09] MEDS: INSULIN GLARGINE SYRINGE. SQ SCH (21:11)
[2021-05-10] VITALS (24 sets, daily range): BP systolic 96–190; BP diastolic 46–88
[2021-05-10] MEDS: DEXMEDETOMIDINE 400 MCG in IV NORMAL SALINE 100ML 96 ML IV PRN ×4 (00:34→23:31)
[2021-05-10] MEDS: PROPOFOL 100 ML IV PRN ×8 (00:35→22:11)
[2021-05-10] MEDS: INSULIN LISPRO 300 UNITS/3 ML VIAL. SQ SCH ×4 (00:53→17:48)
[2021-05-10] MEDS: METOPROLOL IV PUSH 5 MG/5 ML VIAL. IVP SCH ×4 (06:00→17:48)
--- NOTE | 2021-05-10 06:12 | PDOC ---
PULMONARY PROGRESS NOTES DATE: 05/10/21 TIME: 06:05 Subjective intubated/sedated Remains on ventilatory support 40%/peep of 5 Sedated on propofol, fentanyl, and Precedex remains on cardene gtt Patient was unable to tolerate pressure support trial and reduction of sedation secondary to increased blood pressure No overnight concerns Vitals Vital Signs Date Time Temp Pulse Resp B/P (MAP) Pulse Ox O2 Delivery O2 Flow Rate FiO2 05/10/21 04:00 95.9 45 20 158/65 (96) 99 Ventilator 95.9 Comments Visual exam done due to COVID-19. Intubated and sedated No paradoxical breathing. Labs Laboratory Tests Test 05/08/21 08:26 05/08/21 12:27 05/08/21 18:05 05/09/21 00:09 O2 Saturation 89 % (92-99) Arterial Blood pH 7.40 (7.35-7.45) Arterial Blood pCO2 at Patient Temp 40 mmHg (35-46) Arterial Blood pO2 at Patient Temp 62 mmHg (65-108) Arterial Blood HCO3 24 mmol/L (21-28) Arterial Blood Base Excess -1 mmol/L (-3-3) FiO2 40 Glucose (Fingerstick) 202 mg/dL (70-99) 168 mg/dL (70-99) 216 mg/dL (70-99) Test 05/09/21 05:59 05/09/21 06:10 05/09/21 07:43 05/09/21 13:45 Glucose (Fingerstick) 176 mg/dL (70-99) 183 mg/dL (70-99) White Blood Count 19.8 x10^3/uL (4.0-11.0) Red Blood Count 3.08 x10^6/uL (4.30-5.70) Hemoglobin 8.2 g/dL (13.0-17.5) Hematocrit 25.1 % (39.0-53.0) Mean Corpuscular Volume 82 fL (79-100) Mean Corpuscular Hemoglobin 27 pg (25-35) Mean Corpuscular Hemoglobin Concent 33 g/dL (31-37) Red Cell Distribution Width 15.8 % (11.5-14.5) Platelet Count 344 x10^3/uL (140-400) Neutrophils (%) (Auto) 84 % (31-73) Lymphocytes (%) (Auto) 7 % (24-48) Monocytes (%) (Auto) 7 % (0-9) Eosinophils (%) (Auto) 1 % (0-3) Basophils (%) (Auto) 0 % (0-3) Neutrophils # (Auto) 16.5 x10^3/uL (1.8-7.7) Lymphocytes # (Auto) 1.4 x10^3/uL (1.0-4.8) Monocytes # (Auto) 1.5 x10^3/uL (0.0-1.1) Eosinophils # (Auto) 0.3 x10^3/uL (0.0-0.7) Basophils # (Auto) 0.1 x10^3/uL (0.0-0.2) Sodium Level 129 mmol/L (136-145) Potassium Level 3.1 mmol/L (3.5-5.1) Chloride Level 94 mmol/L (98-107) Carbon Dioxide Level 26 mmol/L (21-32) Anion Gap 9 (6-14) Blood Urea Nitrogen 46 mg/dL (8-26) Creatinine 2.7 mg/dL (0.7-1.3) Estimated GFR (Cockcroft-Gault) 28.1 BUN/Creatinine Ratio 17 (6-20) Glucose Level 178 mg/dL (70-99) Calcium Level 8.5 mg/dL (8.5-10.1) Total Bilirubin 0.6 mg/dL (0.2-1.0) Aspartate Amino Transf (AST/SGOT) 57 U/L (15-37) Alanine Aminotransferase (ALT/SGPT) 44 U/L (16-63) Alkaline Phosphatase 74 U/L (46-116) Total Protein 6.0 g/dL (6.4-8.2) Albumin 1.9 g/dL (3.4-5.0) Albumin/Globulin Ratio 0.5 (1.0-1.7) O2 Saturation 90 % (92-99) Arterial Blood pH 7.42 (7.35-7.45) Arterial Blood pCO2 at Patient Temp 35 mmHg (35-46) Arterial Blood pO2 at Patient Temp 60 mmHg (65-108) Arterial Blood HCO3 22 mmol/L (21-28) Arterial Blood Base Excess -2 mmol/L (-3-3) FiO2 40 Test 8/4/21 17:26 05/10/21 00:50 Glucose (Fingerstick) 163 mg/dL (70-99) 164 mg/dL (70-99) Laboratory Tests Test 05/09/21 06:10 05/09/21 07:43 05/09/21 13:45 05/09/21 17:26 White Blood Count 19.8 x10^3/uL (4.0-11.0) Red Blood Count 3.08 x10^6/uL (4.30-5.70) Hemoglobin 8.2 g/dL (13.0-17.5) Hematocrit 25.1 % (39.0-53.0) Mean Corpuscular Volume 82 fL (79-100) Mean Corpuscular Hemoglobin 27 pg (25-35) Mean Corpuscular Hemoglobin Concent 33 g/dL (31-37) Red Cell Distribution Width 15.8 % (11.5-14.5) Platelet Count 344 x10^3/uL (140-400) Neutrophils (%) (Auto) 84 % (31-73) Lymphocytes (%) (Auto) 7 % (24-48) Monocytes (%) (Auto) 7 % (0-9) Eosinophils (%) (Auto) 1 % (0-3) Basophils (%) (Auto) 0 % (0-3) Neutrophils # (Auto) 16.5 x10^3/uL (1.8-7.7) Lymphocytes # (Auto) 1.4 x10^3/uL (1.0-4.8) Monocytes # (Auto) 1.5 x10^3/uL (0.0-1.1) Eosinophils # (Auto) 0.3 x10^3/uL (0.0-0.7) Basophils # (Auto) 0.1 x10^3/uL (0.0-0.2) Sodium Level 129 mmol/L (136-145) Potassium Level 3.1 mmol/L (3.5-5.1) Chloride Level 94 mmol/L (98-107) Carbon Dioxide Level 26 mmol/L (21-32) Anion Gap 9 (6-14) Blood Urea Nitrogen 46 mg/dL (8-26) Creatinine 2.7 mg/dL (0.7-1.3) Estimated GFR (Cockcroft-Gault) 28.1 BUN/Creatinine Ratio 17 (6-20) Glucose Level 178 mg/dL (70-99) Calcium Level 8.5 mg/dL (8.5-10.1) Total Bilirubin 0.6 mg/dL (0.2-1.0) Aspartate Amino Transf (AST/SGOT) 57 U/L (15-37) Alanine Aminotransferase (ALT/SGPT) 44 U/L (16-63) Alkaline Phosphatase 74 U/L (46-116) Total Protein 6.0 g/dL (6.4-8.2) Albumin 1.9 g/dL (3.4-5.0) Albumin/Globulin Ratio 0.5 (1.0-1.7) O2 Saturation 90 % (92-99) Arterial Blood pH 7.42 (7.35-7.45) Arterial Blood pCO2 at Patient Temp 35 mmHg (35-46) Arterial Blood pO2 at Patient Temp 60 mmHg (65-108) Arterial Blood HCO3 22 mmol/L (21-28) Arterial Blood Base Excess -2 mmol/L (-3-3) FiO2 40 Glucose (Fingerstick) 183 mg/dL (70-99) 163 mg/dL (70-99) Test 05/10/21 00:50 Glucose (Fingerstick) 164 mg/dL (70-99) Medications Active Scripts Medications Dose Route/Sig Max Daily Dose Days Date Category Glyburide 2.5 Mg Tablet 1 Tab PO DAILY 04/19/21 Rx Polyethylene Glycol 3350 17 Gm Powd.pack 17 Gm PO DAILY 04/19/21 Rx Dok (Docusate Sodium) 100 Mg Capsule 100 Mg PO PRN DAILY PRN 04/19/21 Rx Bisacodyl 5 Mg Tablet. 5 Mg PO PRN DAILY PRN 04/19/21 Rx Acetaminophen 325 Mg Tablet 650 Mg PO PRN Q4HRS PRN 04/19/21 Rx Aspirin Ec (Aspirin) 81 Mg Tablet. 81 Mg PO DAILYWBKFT 04/19/21 Rx Hydralazine Hcl 25 Mg Tablet 25 Mg PO QID 04/19/21 Rx Fenofibrate 54 Mg Tablet 1 Tab PO DAILY 04/17/21 Reported Potassium Chloride (Potassium Chloride) 20 Meq Tablet.er 20 Meq PO DAILY 04/17/21 Reported Coreg (Carvedilol) 12.5 Mg Tablet 37.5 Mg PO BIDWMEALS 04/17/21 Reported Rosuvastatin Calcium 40 Mg Tablet 40 Mg PO QHS 04/17/21 Reported Gabapentin (Gabapentin) 100 Mg Capsule 200 Mg PO BID 04/17/21 Reported Montelukast Sodium Tablet (Montelukast Sodium) 10 Mg Tablet 10 Mg PO HS 04/17/21 Reported Protonix (Pantoprazole Sodium) 20 Mg Tablet.dr 2 Tab PO DAILY 04/17/21 Reported Amlodipine Besylate 5 Mg Tablet 5 Mg PO DAILY 04/17/21 Reported Furosemide 40 Mg Tablet 1 Tab PO DAILY 04/17/21 Reported Proair Hfa Inhaler (Albuterol Sulfate) 8.5 Gm Hfa.aer.ad 2 Puff IH PRN Q4-6HRS PRN 21 04/16/21 Reported Advair 100-50 Diskus (Fluticasone/Salmeterol) 1 Each Disk.w.dev 1 Puff IH BID 04/16/21 Reported Comments Impression . IMPRESSION: 1. Acute hypoxic respiratory failure, multifactorial/COVID-19 viral pn eumonia/ARDS, ongoing, intubated 04/25/[address] chest with bilateral diffuse interstitial infiltrates without any significant pleural effusion 3. Leukocytosis, sepsis--ongoing ID following 4. Non-ST segment elevation AL 5. History of tobacco use, suspect COPD, unknown FEV1 6. Chronic kidney disease. Worsening ILDA on CKD, on HD now 7. Metabolic acidosis multifactorial 8. Abnormal chest x-ray 9. Hypoglycemia, continue to monitor 10. Hypotension, suspect volume deficit,/possible sepsis 11. Fever--resolved Plan . Updated 05/10/21 Patient was intubated 04/25/2021, unable to tolerate pressure support trials, we will consult surgery at this time for possible tracheostomy Continue current vent support 20/500/40%/5, attempt sedation vacation, patient did not tolerate reducing sedation 05/08/2021 became very tachypneic and hypertensive, again patient did not tolerate reducing sedation or pressure support trial on 05/09/2021 secondary to increased respiratory rate and increased blood pressure. Follow ABG/CXR--reviewed Patient has completed full course of steroids Follow ID recs for ABX --Continue cefepime Follow nephrology recs-- HD Follow Cardiology recs--preserved LV function, hypertension, remains on Cardene drip Hyperglycemia Per PCP continue TF for nutritional support DVT/GI PPX:subQ heparin D/W RN and RT Pt. is DNR I have discussed with patient's DPOA. I did explain to her about the need for tracheostomy. She is agreeable to proceed. General surgery has been consulted. cct 30 min Updated 05/09/21 Continue current vent support 20/500/40%/5, attempt sedation vacation, patient did not tolerate reducing sedation 05/08/2021 became very tachypneic and hypertensive Follow ABG/CXR--reviewed no changes Patient has completed full course of steroids Follow ID recs for ABX --Continue cefepime-- Follow cultures Follow nephrology recs-- HD Follow Cardiology recs--preserved LV function, hypertension, currently on Cardene drip Hyperglycemia Per PCP continue TF for nutritional support DVT/GI PPX:subQ heparin D/W RN and RT Pt. is DNR Addendum; patient became hypotensive when sedation was taken off. Had to be resedated and CPAP trial withheld cct 30 min Updated 05/08/21 Continue current vent support 40% and PEEP of 5, attempt sedation vacation and PS trial, pt. didn't tolerate PS trial 05/07/21 , will re attempt again today Follow ABG/CXR--reviewed no changes DC steroids--has completed full 12 day course Proceed with sedation vacation and PS trial Follow ID recs for ABX --Continue cefepime-- Follow cultures Follow nephrology recs-- HD Follow Cardiology recs--preserved LV function continue TF for nutritional support DVT/GI PPX:subQ heparin D/W RN and RT Pt. is DNR cct 30 min JONES FISHMAN MD May 10, 2021 06:12
--- NOTE | 2021-05-10 06:24 | RAD ---
EXAM: CHEST ONE VIEW. HISTORY: Hypoxia. COMPARISON: 05/07/2021. FINDINGS: A frontal view of the chest is obtained. An endotracheal tube has its tip 7 cm above the ca lowell. A nasogastric tube has its tip below the inferior margin of the view. A right internal jugular hemodialysis catheter has its tip in the superior cavoatrial junction. There are small bilateral pleural effusions. Bibasilar infiltrates and atelectasis are mildly improve d. There is no pneumothorax. The heart is mildly enlarged. There are atherosclerotic calcifications o f the aorta. IMPRESSION: 1. Small pleural effusions and bibasilar infiltrates are mildly improved. Electronically signed by: Arturo Gonzalez MD (05/10/2021 6:22 AM) [facility]
[2021-05-10] MEDS: FUROSEMIDE 40 MG/4 ML VIAL. IVP SCH ×3 (06:28→20:54)
[2021-05-10] MEDS: HEPARIN for SUB-Q USE 5,000 UNIT/ML VIAL. SQ SCH ×3 (06:28→20:54)
[2021-05-10 06:44] LABS: BASO % 0 % (0-3); EOS # 0.2 x10^3/uL (0.0-0.7); EOS % 1 % (0-3); HEMATOCRIT 22.9 % (39.0-53.0); HEMOGLOBIN 7.5 g/dL (13.0-17.5); LYMPH # 1.5 x10^3/uL (1.0-4.8); LYMPH % 10 % (24-48); MEAN CORPUSCULAR HEMOGLOBIN 27 pg (25-35); MEAN CORPUSCULAR HGB CONC 33 g/dL (31-37); MEAN CORPUSCULAR VOLUME 82 fL (79-100); MONO # 1.2 x10^3/uL (0.0-1.1); MONO % 8 % (0-9); NEUT # 12.4 x10^3/uL (1.8-7.7); NEUT % 81 % (31-73); PLATELET COUNT 288 x10^3/uL (140-400); RED BLOOD COUNT 2.81 x10^6/uL (4.30-5.70); RED CELL DISTRIBUTION WIDTH 15.6 % (11.5-14.5); WHITE BLOOD COUNT 15.3 x10^3/uL (4.0-11.0)
[2021-05-10 07:07] LABS: ALBUMIN 1.4 g/dL (3.4-5.0); ALBUMIN/GLOBULIN RATIO 0.4 (1.0-1.7); CALCIUM 7.8 mg/dL (8.5-10.1); CREATININE 2.7 mg/dL (0.7-1.3); GFR 28.1; TOTAL BILIRUBIN 0.4 mg/dL (0.2-1.0); TOTAL PROTEIN 5.1 g/dL (6.4-8.2)
[2021-05-10 07:13] LABS: POTASSIUM 2.6 mmol/L (3.5-5.1)
--- NOTE | 2021-05-10 07:18 | PDOC ---
Infectious Disease Note Subjective Subjective Patient intubated/sedated ROS ROS no n/v/d/sob Vital Sign Vital Signs Vital Signs Date Time Temp Pulse Resp B/P (MAP) Pulse Ox O2 Delivery O2 Flow Rate FiO2 05/10/21 06:00 44 05/10/21 05:00 99 Ventilator 05/10/21 04:00 95.9 20 158/65 (96) 95.9 Physical Exam PHYSICAL EXAM GENERAL: Well-developed and well-nourished male, intubated, sedated. HEENT: Normocephalic, atraumatic, and anicteric. ETT and OGT present. NECK: Right IJ removed, right dialysis catheter present clean HEART: S1, S2. LUNGS: Decreased breath sounds. ABDOMEN: Soft, obese, bowel sounds present. GENITOURINARY: Nieves in place. EXTREMITIES: Edema present. DERMATOLOGIC: Warm, dry, no generalized rash. NEUROLOGIC: Intubated. PSYCHIATRIC: Unable to obtain. Labs Lab Laboratory Tests Test 05/09/21 07:43 05/09/21 13:45 05/09/21 17:26 05/10/21 00:50 O2 Saturation 90 % (92-99) Arterial Blood pH 7.42 (7.35-7.45) Arterial Blood pCO2 at Patient Temp 35 mmHg (35-46) Arterial Blood pO2 at Patient Temp 60 mmHg (65-108) Arterial Blood HCO3 22 mmol/L (21-28) Arterial Blood Base Excess -2 mmol/L (-3-3) FiO2 40 Glucose (Fingerstick) 183 mg/dL (70-99) 163 mg/dL (70-99) 164 mg/dL (70-99) Test 05/10/21 06:25 White Blood Count 15.3 x10^3/uL (4.0-11.0) Red Blood Count 2.81 x10^6/uL (4.30-5.70) Hemoglobin 7.5 g/dL (13.0-17.5) Hematocrit 22.9 % (39.0-53.0) Mean Corpuscular Volume 82 fL (79-100) Mean Corpuscular Hemoglobin 27 pg (25-35) Mean Corpuscular Hemoglobin Concent 33 g/dL (31-37) Red Cell Distribution Width 15.6 % (11.5-14.5) Platelet Count 288 x10^3/uL (140-400) Neutrophils (%) (Auto) 81 % (31-73) Lymphocytes (%) (Auto) 10 % (24-48) Monocytes (%) (Auto) 8 % (0-9) Eosinophils (%) (Auto) 1 % (0-3) Basophils (%) (Auto) 0 % (0-3) Neutrophils # (Auto) 12.4 x10^3/uL (1.8-7.7) Lymphocytes # (Auto) 1.5 x10^3/uL (1.0-4.8) Monocytes # (Auto) 1.2 x10^3/uL (0.0-1.1) Eosinophils # (Auto) 0.2 x10^3/uL (0.0-0.7) Basophils # (Auto) 0.0 x10^3/uL (0.0-0.2) Sodium Level 132 mmol/L (136-145) Potassium Level 2.6 mmol/L (3.5-5.1) Chloride Level 99 mmol/L (98-107) Carbon Dioxide Level 21 mmol/L (21-32) Anion Gap 12 (6-14) Blood Urea Nitrogen 47 mg/dL (8-26) Creatinine 2.7 mg/dL (0.7-1.3) Estimated GFR (Cockcroft-Gault) 28.1 BUN/Creatinine Ratio 17 (6-20) Glucose Level 164 mg/dL (70-99) Glucose (Fingerstick) 141 mg/dL (70-99) Calcium Level 7.8 mg/dL (8.5-10.1) Total Bilirubin 0.4 mg/dL (0.2-1.0) Aspartate Amino Transf (AST/SGOT) 38 U/L (15-37) Alanine Aminotransferase (ALT/SGPT) 32 U/L (16-63) Alkaline Phosphatase 58 U/L (46-116) Total Protein 5.1 g/dL (6.4-8.2) Albumin 1.4 g/dL (3.4-5.0) Albumin/Globulin Ratio 0.4 (1.0-1.7) Micro Microbiology 05/04/21 Gram Stain Evaluation - Final, Resulted 05/04/21 Respiratory Culture - Preliminary, Resulted 05/04/21 Gram Stain - Final, Resulted 05/04/21 Aerobic Culture - Preliminary, Resulted 05/04/21 Blood Culture - Preliminary, Resulted NO GROWTH AFTER 2 DAYS Objective Assessment 1. Febrile illness could be healthcare-associated infection 2. Leukocytosis, on steroids. 3. COVID-19 pneumonia. 4. Acute hypoxic respiratory failure status post intubation. 5. Congestive heart failure, acute on chronic. 6. Acute kidney injury on chronic kidney disease on hemodialysis. 7. Diabetes mellitus 2. 8. Atrial fibrillation. 9. Anemia. 10. Protein-calorie malnutrition. 11. Hypertention Plan Plan of Care 1. Continue cefepime , 2. Follow-up labs and cultures 3. Change central line and send cath tip for cultures. 4. Check C. difficile PCR 5. Continue supportive care. 6. Critically ill. Discussed with nursing staff JAD RIVERO MD May 10, 2021 07:18
[2021-05-10] MEDS: ASPIRIN CHEWABLE 81 MG TABLET. PO SCH (08:16)
[2021-05-10 08:17] LABS: BASE EXCESS ABG -3 mmol/L (-3-3); HCO3 ABG 22 mmol/L (21-28); PCO2 ABG 34 mmHg (35-46); PO2 ABG 78 mmHg (65-108); SAT O2 ABG 95 % (92-99)
[2021-05-10] MEDS: PANTOPRAZOLE IV PUSH 40 MG VIAL. IVP SCH (08:17)
[2021-05-10 08:28] LABS: FIO2 ABG 40%+5
--- NOTE | 2021-05-10 08:39 | PDOC ---
PROGRESS NOTES Date of Service: DATE: 05/10/21 TIME: 08:38 Chief Complaint Chief Complaint Respiratory failure requiring intubation COVID-19 Acute RI A. fib SIRS Hypertension with hypertensive urgency Hyperlipidemia CKD Diabetes History of bilateral subclavian stenosis History of marijuana use Severe protein calorie malnutrition History of Present Illness History of Present Illness 05/10/2021 VENT %, 5 of PEEP Mild pulmonary edema with new small right pleural effusion and basilar opacities now on cardene gtt prn Patient seen and examined in the COVID-19 ICU remains mechanically ventilated ILDA on CKD - ATN 2/2 sepsis/ Hypotension,UOP good,on IV Lasix ; requiring dialysis, Sedated with propofol Dex and fentanyl Chart reviewed Discussed with RN He remains critically ill intubated/sedated cont cardene gtt not able to tolerate PS trial 05/06/21 Change central line and send cath tip for cultures. 05-09 C. difficile PCR JONES FISHMAN MD,ADELSO DASILVA MD, MD ORDERED: BCULT Procedure Result BLOOD CULTURE Preliminary NO GROWTH AFTER 2 DAYS BLOOD CULTURE Preliminary NO GROWTH AFTER 4 DAYS 33 min cc time 05/09/2021 VENT %, 5 of PEEP Mild pulmonary edema with new small right pleural effusion and basilar opacities now on cardene gtt prn Patient seen and examined in the [place] [address] ICU remains mechanically ventilated ILDA on CKD - ATN 2/2 sepsis/ Hypotension,UOP good,on IV Lasix ; requiring dialysis, Sedated with propofol Dex and fentanyl Chart reviewed Discussed with RN He remains critically ill intubated/sedated cont cardene gtt not able to tolerate PS trial 05/06/21 Change central line and send cath tip for cultures. 05-09 C. difficile PCR JONES FISHMAN MD,BRIAN AVILA,ADELSO POTTER ORDERED: BCULT Procedure Result BLOOD CULTURE Preliminary NO GROWTH AFTER 2 DAYS BLOOD CULTURE Preliminary NO GROWTH AFTER 4 DAYS 37 min cc time 05/08/2021 Currently on 40%, 5 of PEEP now on cardene gtt Patient seen and examined in the [place] [address] ICU remains mechanically ventilated ILDA on CKD - ATN 2/2 sepsis/ Hypotension,UOP good,on IV Lasix ; requiring dialysis, AC/20/500/40 percent with 5 of PEEP Sedated with propofol Dex and fentanyl Chart reviewed Discussed with RN He remains critically ill intubated/sedated cont cardene gtt not able to tolerate PS trial 05/06/21 JONES FISHMAN MD, CHRISTOPHER S MD SISILLO, SABATO MD ORDERED: BCULT Procedure Result BLOOD CULTURE Preliminary NO GROWTH AFTER 2 DAYS BLOOD CULTURE Preliminary NO GROWTH AFTER 4 DAYS 33 min cc time 05/07/2021 Patient seen and examined in the [facility] ICU He remains mechanically ventilated ILDA on CKD - ATN 2/2 sepsis/ Hypotension,UOP good,on IV Lasix ; requiring dialysis, AC/20/500/40 percent with 5 of PEEP Sedated with propofol Dex and fentanyl Chart reviewed Discussed with RN He remains critically ill intubated/sedated cont cardene gtt not able to tolerate PS trial 05/06/21 JONES FISHMAN MD,BRIAN AVILA,ADELSO POTTER ORDERED: BCULT Procedure Result BLOOD CULTURE Preliminary NO GROWTH AFTER 2 DAYS 36 min cc time 05/06/2021 Patient seen and examined in the [place] [address] ICU He remains mechanically ventilated AC/20/500/40 percent with 5 of PEEP Sedated with propofol Dex and fentanyl Chart reviewed Discussed with RN He remains critically ill 05/05/2020 Patient seen and examined in the [place] [address] ICU He remains on the vent AC/20/500/40 percent with 5 of PEEP Discussed with RN Chart reviewed Has SCDs in place Nieves to bedside drainage He remains critically ill 05/04/2021 Patient seen and examined in the [place] [address] ICU Still intubated Sedated with propofol and fentanyl AC/20/500/70 percent with 5 of PEEP On dialysis currently Has SCDs in Nieves to bedside drainage Discussed with RN Chart reviewed 05/03/2021 Patient seen and examined in the [place] [address] ICU He is still intubated AC/20/500/70 percent with 5 of PEEP Has SCDs in place Nieves to bedside drainage Sedated with fentanyl Versed and propofol Discussed are Chart reviewed Remains critically ill 05/02/2021 Patient seen and examined in the [place] [address] ICU He is sedated with propofol fentanyl and Versed Ventilator settings as follow AC/20/500/40 percent with 5 of PEEP Has Nieves to bedside drainage Chart reviewed Discussed with RN He remains critically ill 05/01/2021 Patient seen and examined in the [place] [address] ICU He is still intubated AC/20/500/40 percent with 5 of PEEP In A. fib Sedated with propofol fentanyl and Versed Has a heparin drip Missy with RN Chart reviewed He remains critically 04/30/2020 Patient seen and examined in the [place] [address] ICU He remains on the vent AC/20/500/40 5% with 5 PEEP Currently on dialysis Has OG feeds running Has a Nieves to bedside drainage Sedated with propofol and fentanyl Reviewed chart Discussed with RN He remains critically ill Mr Lan is a 75 yo male w/ PMHx CAD, HTN, Hyperlipidemia, subclavian steel syndrome, subclavian stenosis s/p left subclavian sent placement complicated by retroperitoneal hematoma s/p evacuation in 08/2015), asthma, BART, CKD, DM2 who p resented from home with home health care noted that he was short of breath and valverde with O2 saturations less than 89% as low as 84% not improved with nasal cannulated oxygen placed on CPAP and brought to ED for further care. He was just discharged from the hospital a week ago on April 19, 2021 for abdominal pain and was going for further cardiac testing with outpatient stress testing scheduled on May 28, 2021. Had echocardiogram April 17, 2021 with normal-appearing EF with moderate concentric LVH no significant valvular abnormalities. WBC 20, Hb 10.7, platelets 268, NA 140, K3.8, BUN 21, CR 2.9, glucose 162, albumin 3, troponin I 1.372, NT proBNP 33,318. EKG appears sinus tachycardia rate of 105 bpm with multiple PACs small ST depressions in lead II and V5. TWI in V6. Chest radiograph with diffuse interstitial and alveolar opacities and ET tube 5.8 cm above the leilani. Due to worsening respiratory status ED physician elected to intubate patient. Seen postintubation. Blood pressure little low after propofol bolus, but improved. Significant white frothy sputum per ET tube. Admitted to ICU for further care 04/29/2021: Afebrile, remains on vent at FiO2 45%, PEEP 5. WBC 20.4. Hemodialysis per nephrology. We will continue treatment with empiric antibiotics, remdesivir, and steroids. Continue heparin infusion and supportive care. Critical care time 30 minutes reviewing chart, review labs, review imaging, discussion with RN. 04/28/2021: Afebrile. FiO2 50%, PEEP 5. Nontunneled HD catheter placed yesterday due to worsening kidney function; eGFR 16 (CKD4). Chest x-ray showed unchanged interstitial opacities. Continue empiric antibiotics, steroids, and remdesivir. Continue heparin infusion, and continue to follow cardiology recommendations on new diagnosis of A. fib. Critical care time 30 minutes reviewing chart, review labs, review imaging, discussion with RN. 04/27/2021: Afebrile. On vent with FiO2 50%, PEEP 5. Troponin 2.8 yesterday; probable type II, demand ischemia. New onset A. fib. Continue heparin drip and as needed digoxin, per cardiology. Continue treatment with remdesivir, steroids, and prophylactic antibiotics. CBG 323 this morning; will add basal insulin. Critical care 30 minutes spent reviewing labs, reviewing imaging, reviewing charts, and discussion with RN. 04/26/2021: COVID-19 positive. Febrile overnight that was managed with cooling blankets. On vent with FiO2 50%, PEEP 5. Per cardiology, elevated troponins likely secondary to demand ischemia; continue heparin drip per cardiology. Ma intain fluid balance and avoid nephrotoxins. Continue treatment with remdesivir, steroids, and prophylactic antibiotics. 30 minutes critical care time spent reviewing charts, reviewing labs, reviewing imaging, and discussion with RN. 04/25/2021: On vent FiO2 50, PEEP 5. Febrile, T-max 103.3. Patient was initiated on cooling blankets. Procalcitonin 0.13. Continue coverage for hospital-acquired pneumonia with cefepime. MRSA PCR pending. Critical care time 30 minutes spent reviewing charts, reviewing labs, review of imaging, discussion with RN. Vitals Vitals Vital Signs Date Time Temp Pulse Resp B/P (MAP) Pulse Ox O2 Delivery O2 Flow Rate FiO2 05/10/21 08:20 20 99 Ventilator 05/10/21 06:00 44 171/76 (107) 05/10/21 04:00 95.9 95.9 Physical Exam Physical Exam GENERAL: Well-developed and well-nourished male, intubated, sedated. HEENT: Normocephalic, atraumatic, and anicteric. ETT and OGT present. NECK: Right IJ removed, right dialysis catheter present clean HEART: S1, S2. LUNGS: Decreased breath sounds. ABDOMEN: Soft, obese, bowel sounds present. GENITOURINARY: Nieves in place. EXTREMITIES: Edema present. DERMATOLOGIC: Warm, dry, no generalized rash. NEUROLOGIC: Intubated. PSYCHIATRIC: Unable to obtain. General: Other (Intubated sedated) Heart: Other (Tachycardic) Abdomen: Soft, Other (obese) Extremities: No cyanosis, Other (trace LE edema ) Skin: No rashes, No breakdown, No significant lesion Labs LABS RUN DATE: 05/09/21 [facility] *LIVE* PAGE 1 RUN TIME: 1422 Specimen Inquiry PATIENT: NILAM LAN ACCT: [id number] LOC: 1 [facility] ICU U: [id number] AGE/SX: 75/M ROOM: 104 RE04/24/[address]: BRIAN HARDING MD : 1945 BED: 1 DIS: STATUS: ADM IN TLOC: SPEC #: [id number] PEDRO: 05/04/21-141 STATUS: COMP REQ #: [id number] RECD: 05/04/21-14[address] [facility] [address]: ALAYNA RIVERO MD SOURCE: BLOOD ENTR: 05/04/21-[address]: [facility]AM [facility] RACHID GARIBAY MD,LAURENCE FISHMAN,JONES HARDING,BRIAN AVILA,ADELSO POTTER ORDERED: BCULT Procedure Result BLOOD CULTURE Final NO GROWTH AFTER 5 DAYS ------ ------ Laboratory Tests Test 05/09/21 13:45 05/09/21 17:26 05/10/21 00:50 05/10/21 06:25 Glucose (Fingerstick) 183 mg/dL (70-99) 163 mg/dL (70-99) 164 mg/dL (70-99) 141 mg/dL (70-99) White Blood Count 15.3 x10^3/uL (4.0-11.0) Red Blood Count 2.81 x10^6/uL (4.30-5.70) Hemoglobin 7.5 g/dL (13.0-17.5) Hematocrit 22.9 % (39.0-53.0) Mean Corpuscular Volume 82 fL (79-100) Mean Corpuscular Hemoglobin 27 pg (25-35) Mean Corpuscular Hemoglobin Concent 33 g/dL (31-37) Red Cell Distribution Width 15.6 % (11.5-14.5) Platelet Count 288 x10^3/uL (140-400) Neutrophils (%) (Auto) 81 % (31-73) Lymphocytes (%) (Auto) 10 % (24-48) Monocytes (%) (Auto) 8 % (0-9) Eosinophils (%) (Auto) 1 % (0-3) Basophils (%) (Auto) 0 % (0-3) Neutrophils # (Auto) 12.4 x10^3/uL (1.8-7.7) Lymphocytes # (Auto) 1.5 x10^3/uL (1.0-4.8) Monocytes # (Auto) 1.2 x10^3/uL (0.0-1.1) Eosinophils # (Auto) 0.2 x10^3/uL (0.0-0.7) Basophils # (Auto) 0.0 x10^3/uL (0.0-0.2) Sodium Level 132 mmol/L (136-145) Potassium Level 2.6 mmol/L (3.5-5.1) Chloride Level 99 mmol/L (98-107) Carbon Dioxide Level 21 mmol/L (21-32) Anion Gap 12 (6-14) Blood Urea Nitrogen 47 mg/dL (8-26) Creatinine 2.7 mg/dL (0.7-1.3) Estimated GFR (Cockcroft-Gault) 28.1 BUN/Creatinine Ratio 17 (6-20) Glucose Level 164 mg/dL (70-99) Calcium Level 7.8 mg/dL (8.5-10.1) Total Bilirubin 0.4 mg/dL (0.2-1.0) Aspartate Amino Transf (AST/SGOT) 38 U/L (15-37) Alanine Aminotransferase (ALT/SGPT) 32 U/L (16-63) Alkaline Phosphatase 58 U/L (46-116) Total Protein 5.1 g/dL (6.4-8.2) Albumin 1.4 g/dL (3.4-5.0) Albumin/Globulin Ratio 0.4 (1.0-1.7) Test 05/10/21 08:00 O2 Saturation 95 % (92-99) Arterial Blood pH 7.42 (7.35-7.45) Arterial Blood pCO2 at Patient Temp 34 mmHg (35-46) Arterial Blood pO2 at Patient Temp 78 mmHg (65-108) Arterial Blood HCO3 22 mmol/L (21-28) Arterial Blood Base Excess -3 mmol/L (-3-3) FiO2 40%+5 Assessment and Plan Assessmemt and Plan Problems Medical Problems: (1) Elevated troponin Status: Acute (2) Person under investigation for COVID-19 Status: Acute (3) Pulmonary edema Status: Acute Comment Review of Relevant I have reviewed the following items juanita (where applicable) has been applied. Labs Laboratory Tests Test 05/08/21 12:27 05/08/21 18:05 05/09/21 00:09 05/09/21 05:59 Glucose (Fingerstick) 202 mg/dL (70-99) 168 mg/dL (70-99) 216 mg/dL (70-99) 176 mg/dL (70-99) Test 05/09/21 06:10 05/09/21 07:43 05/09/21 13:45 05/09/21 17:26 White Blood Count 19.8 x10^3/uL (4.0-11.0) Red Blood Count 3.08 x10^6/uL (4.30-5.70) Hemoglobin 8.2 g/dL (13.0-17.5) Hematocrit 25.1 % (39.0-53.0) Mean Corpuscular Volume 82 fL (79-100) Mean Corpuscular Hemoglobin 27 pg (25-35) Mean Corpuscular Hemoglobin Concent 33 g/dL (31-37) Red Cell Distribution Width 15.8 % (11.5-14.5) Platelet Count 344 x10^3/uL (140-400) Neutrophils (%) (Auto) 84 % (31-73) Lymphocytes (%) (Auto) 7 % (24-48) Monocytes (%) (Auto) 7 % (0-9) Eosinophils (%) (Auto) 1 % (0-3) Basophils (%) (Auto) 0 % (0-3) Neutrophils # (Auto) 16.5 x10^3/uL (1.8-7.7) Lymphocytes # (Auto) 1.4 x10^3/uL (1.0-4.8) Monocytes # (Auto) 1.5 x10^3/uL (0.0-1.1) Eosinophils # (Auto) 0.3 x10^3/uL (0.0-0.7) Basophils # (Auto) 0.1 x10^3/uL (0.0-0.2) Sodium Level 129 mmol/L (136-145) Potassium Level 3.1 mmol/L (3.5-5.1) Chloride Level 94 mmol/L (98-107) Carbon Dioxide Level 26 mmol/L (21-32) Anion Gap 9 (6-14) Blood Urea Nitrogen 46 mg/dL (8-26) Creatinine 2.7 mg/dL (0.7-1.3) Estimated GFR (Cockcroft-Gault) 28.1 BUN/Creatinine Ratio 17 (6-20) Glucose Level 178 mg/dL (70-99) Calcium Level 8.5 mg/dL (8.5-10.1) Total Bilirubin 0.6 mg/dL (0.2-1.0) Aspartate Amino Transf (AST/SGOT) 57 U/L (15-37) Alanine Aminotransferase (ALT/SGPT) 44 U/L (16-63) Alkaline Phosphatase 74 U/L (46-116) Total Protein 6.0 g/dL (6.4-8.2) Albumin 1.9 g/dL (3.4-5.0) Albumin/Globulin Ratio 0.5 (1.0-1.7) O2 Saturation 90 % (92-99) Arterial Blood pH 7.42 (7.35-7.45) Arterial Blood pCO2 at Patient Temp 35 mmHg (35-46) Arterial Blood pO2 at Patient Temp 60 mmHg (65-108) Arterial Blood HCO3 22 mmol/L (21-28) Arterial Blood Base Excess -2 mmol/L (-3-3) FiO2 40 Glucose (Fingerstick) 183 mg/dL (70-99) 163 mg/dL (70-99) Test 05/10/21 00:50 05/10/21 06:25 05/10/21 08:00 Glucose (Fingerstick) 164 mg/dL (70-99) 141 mg/dL (70-99) White Blood Count 15.3 x10^3/uL (4.0-11.0) Red Blood Count 2.81 x10^6/uL (4.30-5.70) Hemoglobin 7.5 g/dL (13.0-17.5) Hematocrit 22.9 % (39.0-53.0) Mean Corpuscular Volume 82 fL (79-100) Mean Corpuscular Hemoglobin 27 pg (25-35) Mean Corpuscular Hemoglobin Concent 33 g/dL (31-37) Red Cell Distribution Width 15.6 % (11.5-14.5) Platelet Count 288 x10^3/uL (140-400) Neutrophils (%) (Auto) 81 % (31-73) Lymphocytes (%) (Auto) 10 % (24-48) Monocytes (%) (Auto) 8 % (0-9) Eosinophils (%) (Auto) 1 % (0-3) Basophils (%) (Auto) 0 % (0-3) Neutrophils # (Auto) 12.4 x10^3/uL (1.8-7.7) Lymphocytes # (Auto) 1.5 x10^3/uL (1.0-4.8) Monocytes # (Auto) 1.2 x10^3/uL (0.0-1.1) Eosinophils # (Auto) 0.2 x10^3/uL (0.0-0.7) Basophils # (Auto) 0.0 x10^3/uL (0.0-0.2) Sodium Level 132 mmol/L (136-145) Potassium Level 2.6 mmol/L (3.5-5.1) Chloride Level 99 mmol/L (98-107) Carbon Dioxide Level 21 mmol/L (21-32) Anion Gap 12 (6-14) Blood Urea Nitrogen 47 mg/dL (8-26) Creatinine 2.7 mg/dL (0.7-1.3) Estimated GFR (Cockcroft-Gault) 28.1 BUN/Creatinine Ratio 17 (6-20) Glucose Level 164 mg/dL (70-99) Calcium Level 7.8 mg/dL (8.5-10.1) Total Bilirubin 0.4 mg/dL (0.2-1.0) Aspartate Amino Transf (AST/SGOT) 38 U/L (15-37) Alanine Aminotransferase (ALT/SGPT) 32 U/L (16-63) Alkaline Phosphatase 58 U/L (46-116) Total Protein 5.1 g/dL (6.4-8.2) Albumin 1.4 g/dL (3.4-5.0) Albumin/Globulin Ratio 0.4 (1.0-1.7) O2 Saturation 95 % (92-99) Arterial Blood pH 7.42 (7.35-7.45) Arterial Blood pCO2 at Patient Temp 34 mmHg (35-46) Arterial Blood pO2 at Patient Temp 78 mmHg (65-108) Arterial Blood HCO3 22 mmol/L (21-28) Arterial Blood Base Excess -3 mmol/L (-3-3) FiO2 40%+5 Laboratory Tests Test 05/09/21 13:45 05/09/21 17:26 05/10/21 00:50 05/10/21 06:25 Glucose (Fingerstick) 183 mg/dL (70-99) 163 mg/dL (70-99) 164 mg/dL (70-99) 141 mg/dL (70-99) White Blood Count 15.3 x10^3/uL (4.0-11.0) Red Blood Count 2.81 x10^6/uL (4.30-5.70) Hemoglobin 7.5 g/dL (13.0-17.5) Hematocrit 22.9 % (39.0-53.0) Mean Corpuscular Volume 82 fL (79-100) Mean Corpuscular Hemoglobin 27 pg (25-35) Mean Corpuscular Hemoglobin Concent 33 g/dL (31-37) Red Cell Distribution Width 15.6 % (11.5-14.5) Platelet Count 288 x10^3/uL (140-400) Neutrophils (%) (Auto) 81 % (31-73) Lymphocytes (%) (Auto) 10 % (24-48) Monocytes (%) (Auto) 8 % (0-9) Eosinophils (%) (Auto) 1 % (0-3) Basophils (%) (Auto) 0 % (0-3) Neutrophils # (Auto) 12.4 x10^3/uL (1.8-7.7) Lymphocytes # (Auto) 1.5 x10^3/uL (1.0-4.8) Monocytes # (Auto) 1.2 x10^3/uL (0.0-1.1) Eosinophils # (Auto) 0.2 x10^3/uL (0.0-0.7) Basophils # (Auto) 0.0 x10^3/uL (0.0-0.2) Sodium Level 132 mmol/L (136-145) Potassium Level 2.6 mmol/L (3.5-5.1) Chloride Level 99 mmol/L (98-107) Carbon Dioxide Level 21 mmol/L (21-32) Anion Gap 12 (6-14) Blood Urea Nitrogen 47 mg/dL (8-26) Creatinine 2.7 mg/dL (0.7-1.3) Estimated GFR (Cockcroft-Gault) 28.1 BUN/Creatinine Ratio 17 (6-20) Glucose Level 164 mg/dL (70-99) Calcium Level 7.8 mg/dL (8.5-10.1) Total Bilirubin 0.4 mg/dL (0.2-1.0) Aspartate Amino Transf (AST/SGOT) 38 U/L (15-37) Alanine Aminotransferase (ALT/SGPT) 32 U/L (16-63) Alkaline Phosphatase 58 U/L (46-116) Total Protein 5.1 g/dL (6.4-8.2) Albumin 1.4 g/dL (3.4-5.0) Albumin/Globulin Ratio 0.4 (1.0-1.7) Test 05/10/21 08:00 O2 Saturation 95 % (92-99) Arterial Blood pH 7.42 (7.35-7.45) Arterial Blood pCO2 at Patient Temp 34 mmHg (35-46) Arterial Blood pO2 at Patient Temp 78 mmHg (65-108) Arterial Blood HCO3 22 mmol/L (21-28) Arterial Blood Base Excess -3 mmol/L (-3-3) FiO2 40%+5 Microbiology 05/04/21 Gram Stain Evaluation - Final, Complete 05/04/21 Respiratory Culture - Final, Complete 05/04/21 Gram Stain - Final, Complete 05/04/21 Aerobic Culture - Final, Complete 05/04/21 Blood Culture - Final, Complete NO GROWTH AFTER 5 DAYS Medications Current Medications Propofol 100 ml @ As Directed STK-MED ONCE IV ; Start 04/24/21 at 12:36; Stop 04/24/21 at 12:36; Status DC Etomidate (Amidate) 20 mg STK-MED ONCE IV ; Start 04/24/21 at 13:38; Stop 04/24/21 at 13:38; Status DC Succinylcholine Chloride (Anectine) 200 mg STK-MED ONCE .ROUTE ; Start 04/24/21 at 13:38; Stop 04/24/21 at 13:38; Status DC Fentanyl Citrate (Fentanyl 2ml Vial) 50 mcg PRN Q1HR PRN IV PAIN; Start 04/24/21 at 14:00; Stop 04/24/21 at 14:14; Status DC Acetaminophen (Tylenol) 650 mg PRN Q6HRS PRN PO Headaches, Temp > 101.5' Last administered on 04/25/21at 17:31; Start 04/24/21 at 14:00 Ondansetron HCl (Zofran) 4 mg PRN Q6HRS PRN IVP NAUSEA/VOMITING; Start 04/24/21 at 14:00; Status Cancel Sodium Chloride (Normal Saline Flush) 3 ml QSHIFT PRN IV AFTER MEDS AND BLOOD DRAWS; Start 04/24/21 at 14:00 Fentanyl Citrate (Fentanyl 2ml Vial) 25 mcg PRN Q1HR PRN IV SEVERE PAIN 7-10; Start 04/24/21 at 14:00; Stop 04/24/21 at 14:14; Status DC Bisacodyl (Dulcolax Supp) 10 mg PRN DAILY PRN MA CONSTIPATION; Start 04/24/21 at 14:00 Fentanyl Citrate 30 ml @ 0 mls/hr CONT PRN IV SEE PROTOCOL; Start 04/24/21 at 14:00; Stop 04/24/21 at 14:12; Status DC Propofol 100 ml @ 0 mls/hr CONT PRN IV PER PROTOCOL Last administered on 04/24/21at 15:12; Start 04/24/21 at 14:00; Stop 04/24/21 at 15:19; Status DC Chlorhexidine Gluconate (Peridex) 15 ml BID MM Last administered on 04/24/21at 20:49; Start 04/24/21 at 21:00; Stop 04/25/21 at 11:19; Status DC Acetaminophen (Tylenol) 650 mg PRN Q6HRS PRN PO Headaches, Temp > 101.5'; Start 04/24/21 at 14:00; Status Cancel Ondansetron HCl (Zofran) 4 mg PRN Q6HRS PRN IVP NAUSEA/VOMITING; Start 04/24/21 at 14:00 Fentanyl Citrate (Fentanyl 2ml Vial) 25 mcg PRN Q1HR PRN IV SEVERE PAIN 7-10 Last administered on 04/24/21at 16:39; Start 04/24/21 at 14:00 Fentanyl Citrate 30 ml @ 0 mls/hr CONT PRN IV SEE PROTOCOL Last administered on 05/10/21at 08:20; Start 04/24/21 at 14:00 Aspirin (Ecotrin) 81 mg DAILYWBKFT PO Last administered on 05/02/21at 07:20; Start 04/25/21 at 08:00; Stop 05/03/21 at 09:56; Status DC Carvedilol (Coreg) 37.5 mg BIDWMEALS PO ; Start 04/24/21 at 17:00; Stop 04/24/21 at 16:17; Status DC Montelukast Sodium (Singulair) 10 mg HS PO Last administered on 05/09/21at 21:08; Start 04/24/21 at 21:00 Atorvastatin Calcium (Lipitor) 80 mg QHS PO Last administered on 05/09/21at 21:08; Start 04/24/21 at 21:00 Heparin Sodium (Porcine) (Heparin Sodium) 5,000 unit Q8HRS SQ ; Start 04/24/21 at 22:00; Status Cancel Furosemide (Lasix) 40 mg 1X ONCE IVP Last administered on 04/24/21at 16:45; Start 04/24/21 at 15:15; Stop 04/24/21 at 15:19; Status DC Propofol 100 ml @ 0 mls/hr CONT PRN IV PER PROTOCOL Last administered on 05/10/21at 06:32; Start 04/24/21 at 15:30 Carvedilol (Coreg) 3.125 mg BIDWMEALS PO Last administered on 04/25/21at 09:23; Start 04/24/21 at 17:00; Stop 04/25/21 at 15:42; Status DC Cefepime HCl (Maxipime) 2 gm 1X ONCE IVP Last administered on 04/24/21at 18:27; Start 04/24/21 at 16:30; Stop 04/24/21 at 16:31; Status DC Insulin Human Lispro (HumaLOG) 0-9 UNITS Q6HRS SQ Last administered on 05/03/21at 12:24; Start 04/24/21 at 18:00; Stop 05/03/21 at 13:51; Status DC Dextrose (Dextrose 50%-Water Syringe) 12.5 gm PRN Q15MIN PRN IV SEE COMMENTS Last administered on 05/03/21at 04:59; Start 04/24/21 at 16:30; Stop 05/03/21 at 13:54; Status DC Heparin Sodium/ Dextrose 250 ml @ 0 mls/hr CONT PRN IV PER PROTOCOL Last administered on 05/01/21at 05:10; Start 04/24/21 at 16:45; Stop 05/01/21 at 12:32; Status DC Heparin Sodium (Porcine) (Heparin Sodium) 3,200 unit PRN Q6HRS PRN IV FOR UFH LEVEL LESS THAN 0.2 Last administered on 04/24/21at 23:32; Start 04/24/21 at 16:45; Stop 05/01/21 at 12:32; Status DC Cefepime HCl (Maxipime) 1 gm Q12HR IVP Last administered on 04/27/21at 08:09; Start 04/25/21 at 09:00; Stop 04/27/21 at 09:17; Status DC Furosemide (Lasix) 40 mg 1X ONCE IVP ; Start 04/25/21 at 11:30; Stop 04/25/21 at 11:31; Status DC Metoprolol Tartrate (Lopressor Vial) 5 mg 1X ONCE IVP Last administered on 04/25/21at 11:27; Start 04/25/21 at 11:30; Stop 04/25/21 at 11:31; Status DC Info (Anti-Coagulation Monitoring By Pharmacy) 1 each PRN DAILY PRN MC PER PROTOCOL Last administered on 04/26/21at 08:51; Start 04/25/21 at 13:00; Stop 05/02/21 at 07:36; Status DC Digoxin (Lanoxin) 500 mcg 1X ONCE IV Last administered on 04/25/21at 14:52; Start 04/25/21 at 14:45; Stop 04/25/21 at 14:46; Status DC Hydralazine HCl (Apresoline Inj) 10 mg PRN Q4HRS PRN IVP ELEVATED BP, 1ST CHOICE Last administered on 05/04/21at 17:47; Start 04/25/21 at 14:45 Metoprolol Tartrate (Lopressor Vial) 5 mg Q6HRS IVP Last administered on 05/09/21at 06:04; Start 04/25/21 at 18:00 Dexamethasone Sodium Phosphate (Decadron) 6 mg DAILY IVP Last administered on 05/06/21at 08:38; Start 04/25/21 at 17:00; Stop 05/07/21 at 09:18; Status DC Remdesivir 200 mg/ Sodium Chloride 210 ml @ 210 mls/hr 1X ONCE IV Last administered on 04/25/21at 17:09; Start 04/25/21 at 17:30; Stop 04/25/21 at 18:29; Status DC Remdesivir 100 mg/ Sodium Chloride 230 ml @ 460 mls/hr Q24H IV Last administered on 04/29/21at 13:51; Start 04/26/21 at 17:30; Stop 04/29/21 at 17:59; Status DC Midazolam HCl 100 ml @ 0 mls/hr CONT PRN IV SEE PROTOCOL Last administered on 05/02/21at 19:58; Start 04/26/21 at 07:00 Pantoprazole Sodium (PROTONIX VIAL for IV PUSH) 40 mg DAILYAC IVP Last administered on 05/10/21 08:17; Start 04/26/21 at 09:30 Norepinephrine Bitartrate 8 mg/ Dextrose 258 ml @ 25.349 mls/ hr CONT PRN IV PER PROTOCOL Last administered on 04/26/21at 17:53; Start 04/26/21 at 12:15; Stop 05/02/21 at 20:53; Status DC Digoxin (Lanoxin) 250 mcg 1X ONCE IV Last administered on 04/26/21at 15:02; Start 04/26/21 at 13:00; Stop 04/26/21 at 13:05; Status DC Amiodarone HCl 150 mg/Dextrose 103 ml @ 618 mls/hr 1X ONCE IV Last administered on 04/27/21at 02:30; Start 04/27/21 at 02:30; Stop 04/27/21 at 02: 39; Status DC Amiodarone HCl 450 mg/Dextrose 259 ml @ 33 mls/hr CONT PRN IV SEE I/O RECORD; Start 04/27/21 at 02:30; Stop 04/30/21 at 07:56; Status DC Insulin Glargine (Lantus Syringe) 25 unit QHS SQ Last administered on 05/02/21at 21:23; Start 04/27/21 at 21:00; Stop 05/03/21 at 13:45; Status DC Cefepime HCl (Maxipime) 1 gm Q24H IVP Last administered on 05/03/21at 10:02; Start 04/28/21 at 09:30; Stop 05/03/21 at 13:19; Status DC Sodium Bicarbonate (Sodium Bicarb Adult 8.4% Syr) 50 meq 1X ONCE IV Last administered on 04/27/21at 09:50; Start 04/27/21 at 09:45; Stop 04/27/21 at 09:46; Status DC Lidocaine HCl (Buffered Lidocaine 1%) 3 ml STK-MED ONCE .ROUTE ; Start 04/27/21 at 10:57; Stop 04/27/21 at 10:58; Status DC Amiodarone HCl (Cordarone) 200 mg DAILY PO ; Start 04/27/21 at 12:00; Stop 04/27/21 at 12:29; Status DC Lidocaine HCl (Buffered Lidocaine 1%) 3 ml 1X ONCE INJ Last administered on 04/27/21at 11:15; Start 04/27/21 at 11:15; Stop 04/27/21 at 11:16; Status DC Amiodarone HCl (Cordarone) 200 mg DAILY PO Last administered on 05/09/21at 10:00; Start 04/28/21 at 09:00 Sodium Chloride 1,000 ml @ 1,000 mls/hr Q1H PRN IV hypotension; Start 04/28/21 at 11:00; Stop 04/28/21 at 16:59; Status DC Albumin Human 200 ml @ 200 mls/hr 1X PRN PRN IV Hypotension; Start 04/28/21 at 11:00; Stop 04/28/21 at 16:59; Status DC Sodium Chloride (Normal Saline Flush) 10 ml 1X PRN PRN IV AP catheter pack; Start 04/28/21 at 11:00; Stop 04/29/21 at 10:59; Status DC Sodium Chloride (Normal Saline Flush) 10 ml 1X PRN PRN IV RESEARCH TEST ENGINE OPERATOR catheter pack; Start 04/28/21 at 11:00; Stop 04/29/21 at 10:59; Status DC Sodium Chloride 1,000 ml @ 400 mls/hr Q2H30M PRN IV PATENCY; Start 04/28/21 at 11:00; Stop 04/28/21 at 22:59; Status DC Info (PHARMACY MONITORING -- do not chart) 1 each PRN DAILY PRN MC SEE COMMENTS; Start 04/28/21 at 11:00; Status UNV Info (PHARMACY MONITORING -- do not chart) 1 each PRN DAILY PRN MC SEE COMMENTS; Start 04/28/21 at 11:00; Stop 04/30/21 at 22:39; Status DC Magnesium Sulfate 50 ml @ 25 mls/hr PRN DAILY PRN IV for Mag < 1.7 on am labs; Start 04/29/21 at 10:45 Vecuronium [place] (Norcuron Bolus) 6 mg PRN Q6HRS PRN IV VENTILATOR COMPLIANCE; Start 04/30/21 at 11:15 Info (PHARMACY MONITORING -- do not chart) 1 each PRN DAILY PRN MC SEE COMMENTS; Start 04/30/21 at 12:30; Status Cancel Labetalol HCl (Normodyne Iv Push) 20 mg PRN Q2HR PRN IVP HYPERTENSION, 2ND CHOICE Last administered on 05/06/21at 17:19; Start 05/01/21 at 12:30 Heparin Sodium (Porcine) (Heparin Sodium) 5,000 unit Q8HRS SQ Last administered on 05/10/21at 06:28; Start 05/01/21 at 14:00 Furosemide (Lasix) 80 mg 1X ONCE IVP Last administered on 05/02/21at 10:45; Start 05/02/21 at 10:45; Stop 05/02/21 at 10:46; Status DC Furosemide (Lasix) 40 mg Q8HRS IVP Last administered on 05/10/21at 06:28; Start 05/02/21 at 14:00 Sodium Chloride 1,000 ml @ 1,000 mls/hr Q1H PRN IV hypotension; Start 05/02/21 at 11:30; Stop 05/02/21 at 17:29; Status DC Albumin Human 200 ml @ 200 mls/hr 1X PRN PRN IV Hypotension; Start 05/02/21 at 11:30; Stop 05/02/21 at 17:29; Status DC Sodium Chloride (Normal Saline Flush) 10 ml 1X PRN PRN IV AP catheter pack; Start 05/02/21 at 11:30; Stop 05/02/21 at 18:00; Status DC Sodium Chloride (Normal Saline Flush) 10 ml 1X PRN PRN IV RESEARCH TEST ENGINE OPERATOR catheter pack; Start 05/02/21 at 11:30; Stop 05/02/21 at 18:00; Status DC Sodium Chloride 1,000 ml @ 400 mls/hr Q2H30M PRN IV PATENCY; Start 05/02/21 at 11:30; Stop 05/02/21 at 23:29; Status DC Info (PHARMACY MONITORING -- do not chart) 1 each PRN DAILY PRN MC SEE COMMENTS; Start 05/02/21 at 11:30; Status UNV Info (PHARMACY MONITORING -- do not chart) 1 each PRN DAILY PRN MC SEE COMMENTS; Start 05/02/21 at 11:30; Status UNV Norepinephrine Bitartrate 8 mg/ Dextrose 258 ml @ 25.852 mls/ hr CONT PRN IV PER PROTOCOL Last administered on 05/02/21at 21:22; Start 05/02/21 at 21:00; Stop 05/09/21 at 06:10; Status DC Dextrose 1,000 ml @ 50 mls/hr Q20H IV Last administered on 05/03/21at 05:15; Start 05/03/21 at 05:15; Stop 05/03/21 at 13:53; Status DC Aspirin (Aspirin Chewable) 81 mg DAILYWBKFT PO Last administered on 05/10/21at 08:16; Start 05/03/21 at 10:00 Insulin Glargine (Lantus Syringe) 10 unit QHS SQ Last administered on 05/09/21at 21:11; Start 05/03/21 at 21:00 Insulin Human Lispro (HumaLOG) 0-5 UNITS Q6HRS SQ Last administered on 05/10/21at 00:53; Start 05/03/21 at 18:00 Dextrose (Dextrose 50%-Water Syringe) 12.5 gm PRN Q15MIN PRN IV SEE COMMENTS; Start 05/03/21 at 14:00 Sodium Chloride 1,000 ml @ 1,000 mls/hr Q1H PRN IV hypotension; Start 05/04/21 at 07:30; Stop 05/04/21 at 13:29; Status DC Albumin Human 200 ml @ 200 mls/hr 1X PRN PRN IV Hypotension Last administered on 05/04/21at 10:46; Start 05/04/21 at 07:30; Stop 05/04/21 at 13:29; Status DC Sodium Chloride (Normal Saline Flush) 10 ml 1X PRN PRN IV AP catheter pack; Start 05/04/21 at 07:30; Stop 05/05/21 at 07:29; Status DC Sodium Chloride (Normal Saline Flush) 10 ml 1X PRN PRN IV RESEARCH TEST ENGINE OPERATOR catheter pack; Start 05/04/21 at 07:30; Stop 05/05/21 at 07:29; Status DC Sodium Chloride 1,000 ml @ 400 mls/hr Q2H30M PRN IV PATENCY; Start 05/04/21 at 07:30; Stop 05/04/21 at 19:29; Status DC Info (PHARMACY MONITORING -- do not chart) 1 each PRN DAILY PRN MC SEE COMMENTS; Start 05/04/21 at 07:30; Status UNV Info (PHARMACY MONITORING -- do not chart) 1 each PRN DAILY PRN MC SEE COMMENTS; Start 05/04/21 at 07:30; Stop 05/07/21 at 08:47; Status DC Dexmedetomidine HCl 400 mcg/ Sodium Chloride 100 ml @ 0 mls/hr CONT PRN IV PER PROTOCOL Last administered on 05/10/21at 08:18; Start 05/04/21 at 10:30 Cefepime HCl (Maxipime) 1 gm Q24H IVP Last administered on 05/09/21at 16:41; Start 05/04/21 at 16:00 Daptomycin 600 mg/ Sodium Chloride 50 ml @ 100 mls/hr Q48H IV Last administered on 05/04/21at 15:24; Start 05/04/21 at 15:00; Stop 05/06/21 at 08:07; Status DC Potassium Chloride/Water 100 ml @ 100 mls/hr 1X ONCE IV Last administered on 05/06/21at 09:14; Start 05/06/21 at 08:30; Stop 05/06/21 at 09:29; Status DC Nicardipine HCl 50 mg/Sodium Chloride 250 ml @ 25 mls/hr CONT PRN IV SEE I/O RECORD Last administered on 05/08/21at 21:30; Start 05/06/21 at 18:45 Sodium Chloride 1,000 ml @ 1,000 mls/hr Q1H PRN IV hypotension; Start 05/07/21 at 08:45; Stop 05/07/21 at 14:44; Status DC Albumin Human 200 ml @ 200 mls/hr 1X PRN PRN IV Hypotension Last administered on 05/07/21at 11:41; Start 05/07/21 at 08:45; Stop 05/07/21 at 14:44; Status DC Sodium Chloride 1,000 ml @ 400 mls/hr Q2H30M PRN IV PATENCY; Start 05/07/21 at 08:45; Stop 05/07/21 at 20:44; Status DC Info (PHARMACY MONITORING -- do not chart) 1 each PRN DAILY PRN MC SEE COMMENTS; Start 05/07/21 at 08:45; Status UNV Info (PHARMACY MONITORING -- do not chart) 1 each PRN DAILY PRN MC SEE COMMENTS; Start 05/07/21 at 08:45 Albumin Human 100 ml @ 100 mls/hr 1X ONCE IV ; Start 05/07/21 at 11:45; Stop 05/07/21 at 12:44; Status DC Multi-Ingred Cream/Lotion/Oil/ Oint (Artificial Tears Eye Ointment) 1 danielito PRN Q1HR PRN OU DRY EYE; Start 05/07/21 at 16:00 Potassium Chloride/Water 100 ml @ 100 mls/hr Q1H IV Last administered on 05/08/21at 11:54; Start 05/08/21 at 11:00; Stop 05/08/21 at 12:59; Status DC Potassium Chloride/Water 100 ml @ 100 mls/hr Q1H IV Last administered on 05/09/21at 11:43; Start 05/09/21 at 10:00; Stop 05/09/21 at 11:59; Status DC Active Scripts Active Glyburide 2.5 Mg Tablet 1 Tab PO DAILY 14 Days Polyethylene Glycol 3350 17 Gm Powd.pack 17 Gm PO DAILY 14 Days Dok (Docusate Sodium) 100 Mg Capsule 100 Mg PO PRN DAILY PRN 30 Days Bisacodyl 5 Mg Tablet.dr 5 Mg PO PRN DAILY PRN 14 Days Acetaminophen 325 Mg Tablet 650 Mg PO PRN Q4HRS PRN 14 Days Aspirin Ec (Aspirin) 81 Mg Tablet.dr 81 Mg PO DAILYWBKFT 30 Days Hydralazine Hcl 25 Mg Tablet 25 Mg PO QID 30 Days Reported Fenofibrate 54 Mg Tablet 1 Tab PO DAILY Potassium Chloride (Potassium Chloride) 20 Meq Tablet.er 20 Meq PO DAILY Coreg (Carvedilol) 12.5 Mg Tablet 37.5 Mg PO BIDWMEALS Rosuvastatin Calcium 40 Mg Tablet 40 Mg PO QHS Gabapentin (Gabapentin) 100 Mg Capsule 200 Mg PO BID Montelukast Sodium Tablet (Montelukast Sodium) 10 Mg Tablet 10 Mg PO HS Protonix (Pantoprazole Sodium) 20 Mg Tablet.dr 2 Tab PO DAILY Amlodipine Besylate 5 Mg Tablet 5 Mg PO DAILY Furosemide 40 Mg Tablet 1 Tab PO DAILY Proair Hfa Inhaler (Albuterol Sulfate) 8.5 Gm Hfa.aer.ad 2 Puff IH PRN Q4-6HRS PRN 21 Days Advair 100-50 Diskus (Fluticasone/Salmeterol) 1 Each Disk.w.dev 1 Puff IH BID Vitals/I & O Vital Sign - Last 24 Hours 05/09/21 05/09/21 05/09/21 05/09/21 09:00 10:00 10:00 11:00 Pulse 77 53 77 60 Resp 20 20 20 B/P (MAP) 148/84 (105) 88/43 (58) 148/84 92/43 (59) Pulse Ox 99 99 100 O2 Delivery Ventilator Ventilator Ventilator 05/09/21 05/09/21 05/09/21 05/09/21 11:13 12:00 12:00 12:00 Temp 95.2 95.2 Pulse 53 63 Resp 20 B/P (MAP) 137/64 113/49 (70) Pulse Ox 98 100 O2 Delivery Ventilator Mechanical Ventilator Ventilator 05/09/21 05/09/21 05/09/21 05/09/21 13:00 13:16 14:00 15:00 Pulse 62 59 54 Resp 20 20 20 B/P (MAP) 166/65 (98) 183/79 (113) 142/64 (90) Pulse Ox 100 98 100 99 O2 Delivery Ventilator Ventilator Ventilator Ventilator 05/09/21 05/09/21 05/09/21 05/09/21 15:35 16:00 16:00 16:43 Temp 98.2 98.2 Pulse 72 Resp 20 B/P (MAP) 188/82 (117) Pulse Ox 100 100 100 O2 Delivery Ventilator Ventilator Mechanical Ventilator 05/09/21 05/09/21 05/09/21 05/09/21 17:00 17:13 17:39 18:00 Pulse 57 55 Resp 20 B/P (MAP) 132/62 (85) 122/57 Pulse Ox 100 100 100 O2 Delivery Ventilator Ventilator 05/09/21 05/09/21 05/09/21 05/09/21 18:00 19:00 20:00 20:00 Pulse 55 54 Resp 20 20 B/P (MAP) 122/57 (78) 127/57 (80) Pulse Ox 99 100 100 O2 Delivery Ventilator Ventilator Ventilator Mechanical Ventilator 05/09/21 05/09/21 05/09/21 05/09/21 20:00 21:00 22:00 23:00 Temp 98.6 98.6 Pulse 54 52 50 50 Resp 20 20 20 20 B/P (MAP) 137/60 (85) 151/63 (92) 151/64 (93) 154/64 (94) Pulse Ox 100 100 100 98 O2 Delivery Ventilator Ventilator Ventilator Ventilator 05/09/21 05/10/21 05/10/21 05/10/21 23:30 00:00 00:00 00:00 Temp 96.8 96.8 Pulse 49 49 Resp 20 B/P (MAP) 168/54 (92) Pulse Ox 99 100 O2 Delivery Ventilator Ventilator Mechanical Ventilator 05/10/21 05/10/21 05/10/21 05/10/21 01:00 02:00 03:00 03:00 Pulse 49 87 55 Resp 20 20 20 B/P (MAP) 180/70 (106) 164/65 (98) 145/75 (98) Pulse Ox 98 99 100 99 O2 Delivery Ventilator Ventilator Ventilator Ventilator 05/10/21 05/10/21 05/10/21 05/10/21 04:00 04:00 05:00 05:00 Temp 95.9 95.9 Pulse 45 46 Resp 20 20 B/P (MAP) 158/65 (96) 175/85 (115) Pulse Ox 99 99 99 O2 Delivery Mechanical Ventilator Ventilator Ventilator Ventilator 05/10/21 05/10/21 05/10/21 05/10/21 06:00 06:00 08:05 08:20 Pulse 44 44 Resp 20 20 B/P (MAP) 171/76 (107) Pulse Ox 99 99 99 O2 Delivery Ventilator Ventilator Ventilator Intake and Output 05/09/21 05/09/21 05/10/21 15:00 23:00 07:00 Intake Total 520 ml 2056 ml 2191 ml Output Total 1050 ml 650 ml 800 ml Balance -530 ml 1406 ml 1391 ml Justicifation of Admission Dx: Justifications for Admission: Justification of Admission Dx: Yes Aspiration Pneumonia: Hemodynamic Instability ALBA SWAIN MD May 10, 2021 08:39
[2021-05-10] MEDS: AMIODARONE HCL 200 MG TABLET. PO SCH (09:00)
--- NOTE | 2021-05-10 09:11 | PDOC ---
DATE OF SERVICE DATE: 05/10/21 TIME: 09:11 SUBJECTIVE ROS Remains intubated Stable OBJECTIVE Vital Signs Vital Signs Date Time Temp Pulse Resp B/P (MAP) Pulse Ox O2 Delivery O2 Flow Rate FiO2 05/10/21 08:20 20 99 Ventilator 05/10/21 06:00 44 171/76 (107) 05/10/21 04:00 95.9 95.9 I & 0 Intake and Output 05/10/21 07:00 Intake Total 4767 ml Output Total 2500 ml Balance 2267 ml IV Total 1351 ml Tube Feeding 2018 ml Other 1398 ml Output Urine Total 2500 ml Gastric Drainage Total 0 ml PHYSICAL EXAM Physical Exam GENERAL: intubated, HEENT: anicteric. ETT and OGT present. NECK: , right dialysis catheter+, HEART: S1, S2. LUNGS: Decreased breath sounds. ABDOMEN: Soft,bowel sounds present. GENITOURINARY: Nieves in place. EXTREMITIES: Edema present. DERMATOLOGIC: Warm, dry, no generalized rash. NEUROLOGIC: Intubated. PSYCHIATRIC: Unable to obtain. 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 stable, renal function and UOP. Last HD was Friday ,currently renal function stable ? Plateau, great UOP, Hold off dialysis today - monitor for renal recovery HypoKalemia- , 2/2 furosemide . 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 Recent CT Atrophic appearance of the right kidney. COVID-19 positive - Abnormal CT chest with bilateral diffuse interstitial infiltrates without any significant pleural effusion. Acute respiratory failure with Hypoxia Intubated ; CxR Mild pulmonary edema with new small right pleural effusion and basilar opacities. Unchanged small left pleural effusion and basilar opacities. Atrial Fib- per Cardiology Cholelithiasis Anemia . BETTY held 2/2 Hypercoagulable state Severe HypoAlbuminemia DM II Hypotension - Low BP, at presentation , resolved; Low again this morning, not requiring pressor support HTN- On antihypertensives @ home NSTEMI - possibly demand ischemia SIRS - likely sepsis from HCAP H/o bilateral Subclavian stenosis s/p left subclavian sent placement complicated by retroperitoneal hematoma s/p evacuation in 08/2015. COMMENT/RELEVANT DATA Meds Current Medications Medications (Trade) Dose Ordered Sig/Jodie Start Time Stop Time Status Last Admin Dose Admin Acetaminophen (Tylenol) 650 mg PRN Q6HRS PRN 04/24/21 14:00 Cancel Albumin Human 100 ml @ 100 mls/hr 1X ONCE 05/07/21 11:45 05/07/21 12:44 DC Amiodarone HCl (Cordarone) 200 mg DAILY 04/28/21 09:00 05/09/21 10:00 200 MG Amiodarone HCl 150 mg/Dextrose 103 ml @ 618 mls/hr 1X ONCE 04/27/21 02:30 04/27/21 02:39 DC 04/27/21 02:30 618 MLS/HR Amiodarone HCl 450 mg/Dextrose 259 ml @ 33 mls/hr CONT PRN 04/27/21 02:30 04/30/21 07:56 DC Aspirin (Aspirin Chewable) 81 mg DAILYWBKFT 05/03/21 10:00 05/10/21 08:16 81 MG Aspirin (Ecotrin) 81 mg DAILYWBKFT 04/25/21 08:00 05/03/21 09:56 DC 05/02/21 07:20 81 MG Atorvastatin Calcium (Lipitor) 80 mg QHS 04/24/21 21:00 05/09/21 21:08 80 MG Bisacodyl (Dulcolax Supp) 10 mg PRN DAILY PRN 04/24/21 14:00 Carvedilol (Coreg) 3.125 mg BIDWMEALS 04/24/21 17:00 04/25/21 15:42 DC 04/25/21 09:23 3.125 MG Cefepime HCl (Maxipime) 1 gm Q24H 05/04/21 16:00 05/09/21 16:41 1 GM Chlorhexidine Gluconate (Peridex) 15 ml BID 04/24/21 21:00 04/25/21 11:19 DC 04/24/21 20:49 15 ML Daptomycin 600 mg/ Sodium Chloride 50 ml @ 100 mls/hr Q48H 05/04/21 15:00 05/06/21 08:07 DC 05/04/21 15:24 100 MLS/HR Dexamethasone Sodium Phosphate (Decadron) 6 mg DAILY 04/25/21 17:00 05/07/21 09:18 DC 05/06/21 08:38 6 MG Dexmedetomidine HCl 400 mcg/ Sodium Chloride 100 ml @ 0 mls/hr CONT PRN 05/04/21 10:30 05/10/21 08:18 13.1 MLS/HR Dextrose (Dextrose 50%-Water Syringe) 12.5 gm PRN Q15MIN PRN 05/03/21 14:00 Digoxin (Lanoxin) 250 mcg 1X ONCE 04/26/21 13:00 04/26/21 13:05 DC 04/26/21 15:02 250 MCG Etomidate (Amidate) 20 mg STK-MED ONCE 04/24/21 13:38 04/24/21 13:38 DC Fentanyl Citrate 30 ml @ 0 mls/hr CONT PRN 04/24/21 14:00 05/10/21 08:20 3.75 MLS/HR Fentanyl Citrate (Fentanyl 2ml Vial) 25 mcg PRN Q1HR PRN 04/24/21 14:00 04/24/21 16:39 25 MCG Furosemide (Lasix) 40 mg Q8HRS 05/02/21 14:00 05/10/21 06:28 40 MG Heparin Sodium (Porcine) (Heparin Sodium) 5,000 unit Q8HRS 05/01/21 14:00 05/10/21 06:28 5,000 UNIT Heparin Sodium/ Dextrose 250 ml @ 0 mls/hr CONT PRN 04/24/21 16:45 05/01/21 12:32 DC 05/01/21 05:10 10 MLS/HR Hydralazine HCl (Apresoline Inj) 10 mg PRN Q4HRS PRN 04/25/21 14:45 05/04/21 17:47 10 MG Info (Anti-Coagulation Monitoring By Pharmacy) 1 each PRN DAILY PRN 04/25/21 13:00 05/02/21 07:36 DC 04/26/21 08:51 1 EACH Info (PHARMACY MONITORING -- do not chart) 1 each PRN DAILY PRN 05/07/21 08:45 Insulin Glargine (Lantus Syringe) 10 unit QHS 05/03/21 21:00 05/09/21 21:11 10 UNIT Insulin Human Lispro (HumaLOG) 0-5 UNITS Q6HRS 05/03/21 18:00 05/10/21 00:53 2 UNITS Labetalol HCl (Normodyne Iv Push) 20 mg PRN Q2HR PRN 05/01/21 12:30 05/06/21 17:19 20 MG Lidocaine HCl (Buffered Lidocaine 1%) 3 ml 1X ONCE 04/27/21 11:15 04/27/21 11:16 DC 04/27/21 11:15 3 ML Magnesium Sulfate 50 ml @ 25 mls/hr PRN DAILY PRN 04/29/21 10:45 Metoprolol Tartrate (Lopressor Vial) 5 mg Q6HRS 04/25/21 18:00 05/09/21 06:04 5 MG Midazolam HCl 100 ml @ 0 mls/hr CONT PRN 04/26/21 07:00 05/02/21 19:58 6 MLS/HR Montelukast Sodium (Singulair) 10 mg HS 04/24/21 21:00 05/09/21 21:08 10 MG Multi-Ingred Cream/Lotion/Oil/ Oint (Artificial Tears Eye Ointment) 1 danielito PRN Q1HR PRN 05/07/21 16:00 Nicardipine HCl 50 mg/Sodium Chloride 250 ml @ 25 mls/hr CONT PRN 05/06/21 18:45 05/08/21 21:30 25 MLS/HR Norepinephrine Bitartrate 8 mg/ Dextrose 258 ml @ 25.852 mls/ hr CONT PRN 05/02/21 21:00 05/09/21 06:10 DC 05/02/21 21:22 25.852 MLS/HR Ondansetron HCl (Zofran) 4 mg PRN Q6HRS PRN 04/24/21 14:00 Pantoprazole Sodium (PROTONIX VIAL for IV PUSH) 40 mg DAILYAC 04/26/21 09:30 05/10/21 08:17 40 MG Potassium Chloride/Water 100 ml @ 100 mls/hr Q1H 05/09/21 10:00 05/09/21 11:59 DC 05/09/21 11:43 100 MLS/HR Propofol 100 ml @ 0 mls/hr CONT PRN 04/24/21 15:30 05/10/21 06:32 31.4 MLS/HR Remdesivir 100 mg/ Sodium Chloride 230 ml @ 460 mls/hr Q24H 04/26/21 17:30 04/29/21 17:59 DC 04/29/21 13:51 460 MLS/HR Remdesivir 200 mg/ Sodium Chloride 210 ml @ 210 mls/hr 1X ONCE 04/25/21 17:30 04/25/21 18:29 DC 04/25/21 17:09 210 MLS/HR Sodium Bicarbonate (Sodium Bicarb Adult 8.4% Syr) 50 meq 1X ONCE 04/27/21 09:45 04/27/21 09:46 DC 04/27/21 09:50 50 MEQ Sodium Chloride 1,000 ml @ 400 mls/hr Q2H30M PRN 05/07/21 08:45 05/07/21 20:44 DC Sodium Chloride (Normal Saline Flush) 10 ml 1X PRN PRN 05/04/21 07:30 05/05/21 07:29 DC Succinylcholine Chloride (Anectine) 200 mg STK-MED ONCE 04/24/21 13:38 04/24/21 13:38 DC Vecuronium [place] (Norcuron Bolus) 6 mg PRN Q6HRS PRN 04/30/21 11:15 Lab Laboratory Tests Test 05/09/21 13:45 05/09/21 17:26 05/10/21 00:50 05/10/21 06:25 Glucose (Fingerstick) 183 mg/dL (70-99) 163 mg/dL (70-99) 164 mg/dL (70-99) 141 mg/dL (70-99) White Blood Count 15.3 x10^3/uL (4.0-11.0) Red Blood Count 2.81 x10^6/uL (4.30-5.70) Hemoglobin 7.5 g/dL (13.0-17.5) Hematocrit 22.9 % (39.0-53.0) Mean Corpuscular Volume 82 fL (79-100) Mean Corpuscular Hemoglobin 27 pg (25-35) Mean Corpuscular Hemoglobin Concent 33 g/dL (31-37) Red Cell Distribution Width 15.6 % (11.5-14.5) Platelet Count 288 x10^3/uL (140-400) Neutrophils (%) (Auto) 81 % (31-73) Lymphocytes (%) (Auto) 10 % (24-48) Monocytes (%) (Auto) 8 % (0-9) Eosinophils (%) (Auto) 1 % (0-3) Basophils (%) (Auto) 0 % (0-3) Neutrophils # (Auto) 12.4 x10^3/uL (1.8-7.7) Lymphocytes # (Auto) 1.5 x10^3/uL (1.0-4.8) Monocytes # (Auto) 1.2 x10^3/uL (0.0-1.1) Eosinophils # (Auto) 0.2 x10^3/uL (0.0-0.7) Basophils # (Auto) 0.0 x10^3/uL (0.0-0.2) Sodium Level 132 mmol/L (136-145) Potassium Level 2.6 mmol/L (3.5-5.1) Chloride Level 99 mmol/L (98-107) Carbon Dioxide Level 21 mmol/L (21-32) Anion Gap 12 (6-14) Blood Urea Nitrogen 47 mg/dL (8-26) Creatinine 2.7 mg/dL (0.7-1.3) Estimated GFR (Cockcroft-Gault) 28.1 BUN/Creatinine Ratio 17 (6-20) Glucose Level 164 mg/dL (70-99) Calcium Level 7.8 mg/dL (8.5-10.1) Total Bilirubin 0.4 mg/dL (0.2-1.0) Aspartate Amino Transf (AST/SGOT) 38 U/L (15-37) Alanine Aminotransferase (ALT/SGPT) 32 U/L (16-63) Alkaline Phosphatase 58 U/L (46-116) Total Protein 5.1 g/dL (6.4-8.2) Albumin 1.4 g/dL (3.4-5.0) Albumin/Globulin Ratio 0.4 (1.0-1.7) Test 05/10/21 08:00 O2 Saturation 95 % (92-99) Arterial Blood pH 7.42 (7.35-7.45) Arterial Blood pCO2 at Patient Temp 34 mmHg (35-46) Arterial Blood pO2 at Patient Temp 78 mmHg (65-108) Arterial Blood HCO3 22 mmol/L (21-28) Arterial Blood Base Excess -3 mmol/L (-3-3) FiO2 40%+5 Results All relevant outside records, renal labs, imaging studies, telemetry/EKG's were reviewed. Justicifation of Admission Dx: Justifications for Admission: Justification of Admission Dx: Yes Aspiration Pneumonia: Hemodynamic Instability JASMEET LAM MD May 10, 2021 09:11
--- NOTE | 2021-05-10 09:25 | PDOC2 ---
HUIYESENIA Shanita BATCH MAKER 05/10/21 0925: CONSULT Date of Consult Date of Consult DATE: 05/10/21 TIME: 09:21 Reason for Consult Reason for Consult: Trach Referring Physician Referring Physician: Dr Bush Identification/Chief Complaint Chief Complaint resp failure Source Source: Chart review History of Present Illness Reason for Visit: Respiratory failure, Covid Unable to extubate, failed trials Consult for trach placement Past Medical History Cardiovascular: CAD, HTN, Hyperlipidemia, Other Pulmonary: Asthma, COPD, Other Heme/Onc: Anemia NOS Hepatobiliary: No pertinent hx Musculoskeletal: Other Rheumatologic: Gout Renal/: Chronic renal insuff, Other Endocrine: Diabetes Past Surgical History Past Surgical History: Other (see PMH) Family History Family History: Family History Unknown Social History Quit ALCOHOL: other Drugs: Marijuana Lives: with Family Current Problem List Problem List Problems Medical Problems: (1) Elevated troponin Status: Acute (2) Person under investigation for COVID-19 Status: Acute (3) Pulmonary edema Status: Acute Current Medications Current Medications Current Medications Propofol 100 ml @ As Directed STK-MED ONCE IV ; Start 04/24/21 at 12:36; Stop 04/24/21 at 12:36; Status DC Etomidate (Amidate) 20 mg STK-MED ONCE IV ; Start 04/24/21 at 13:38; Stop 04/24/21 at 13:38; Status DC Succinylcholine Chloride (Anectine) 200 mg STK-MED ONCE .ROUTE ; Start 04/24/21 at 13:38; Stop 04/24/21 at 13:38; Status DC Fentanyl Citrate (Fentanyl 2ml Vial) 50 mcg PRN Q1HR PRN IV PAIN; Start 04/24/21 at 14:00; Stop 04/24/21 at 14:14; Status DC Acetaminophen (Tylenol) 650 mg PRN Q6HRS PRN PO Headaches, Temp > 101.5' Last administered on 04/25/21at 17:31; Start 04/24/21 at 14:00 Ondansetron HCl (Zofran) 4 mg PRN Q6HRS PRN IVP NAUSEA/VOMITING; Start 04/24/21 at 14:00; Status Cancel Sodium Chloride (Normal Saline Flush) 3 ml QSHIFT PRN IV AFTER MEDS AND BLOOD DRAWS; Start 04/24/21 at 14:00 Fentanyl Citrate (Fentanyl 2ml Vial) 25 mcg PRN Q1HR PRN IV SEVERE PAIN 7-10; Start 04/24/21 at 14:00; Stop 04/24/21 at 14:14; Status DC Bisacodyl (Dulcolax Supp) 10 mg PRN DAILY PRN [place] CONSTIPATION; Start 04/24/21 at 14:00 Fentanyl Citrate 30 ml @ 0 mls/hr CONT PRN IV SEE PROTOCOL; Start 04/24/21 at 14:00; Stop 04/24/21 at 14:12; Status DC Propofol 100 ml @ 0 mls/hr CONT PRN IV PER PROTOCOL Last administered on 04/24/21at 15:12; Start 04/24/21 at 14:00; Stop 04/24/21 at 15:19; Status DC Chlorhexidine Gluconate (Peridex) 15 ml BID MM Last administered on 04/24/21at 20:49; Start 04/24/21 at 21:00; Stop 04/25/21 at 11:19; Status DC Acetaminophen (Tylenol) 650 mg PRN Q6HRS PRN PO Headaches, Temp > 101.5'; Start 04/24/21 at 14:00; Status Cancel Ondansetron HCl (Zofran) 4 mg PRN Q6HRS PRN IVP NAUSEA/VOMITING; Start 04/24/21 at 14:00 Fentanyl Citrate (Fentanyl 2ml Vial) 25 mcg PRN Q1HR PRN IV SEVERE PAIN 7-10 Last administered on 04/24/21at 16:39; Start 04/24/21 at 14:00 Fentanyl Citrate 30 ml @ 0 mls/hr CONT PRN IV SEE PROTOCOL Last administered on 05/10/21at 08:20; Start 04/24/21 at 14:00 Aspirin (Ecotrin) 81 mg DAILYWBKFT PO Last administered on 05/02/21at 07:20; Start 04/25/21 at 08:00; Stop 05/03/21 at 09:56; Status DC Carvedilol (Coreg) 37.5 mg BIDWMEALS PO ; Start 04/24/21 at 17:00; Stop 04/24/21 at 16:17; Status DC Montelukast Sodium (Singulair) 10 mg HS PO Last administered on 05/09/21at 21:08; Start 04/24/21 at 21:00 Atorvastatin Calcium (Lipitor) 80 mg QHS PO Last administered on 05/09/21at 21:08; Start 04/24/21 at 21:00 Heparin Sodium (Porcine) (Heparin Sodium) 5,000 unit Q8HRS SQ ; Start 04/24/21 at 22:00; Status Cancel Furosemide (Lasix) 40 mg 1X ONCE IVP Last administered on 04/24/21at 16:45; S tart 04/24/21 at 15:15; Stop 04/24/21 at 15:19; Status DC Propofol 100 ml @ 0 mls/hr CONT PRN IV PER PROTOCOL Last administered on 05/10/21at 06:32; Start 04/24/21 at 15:30 Carvedilol (Coreg) 3.125 mg BIDWMEALS PO Last administered on 04/25/21at 09:23; Start 04/24/21 at 17:00; Stop 04/25/21 at 15:42; Status DC Cefepime HCl (Maxipime) 2 gm 1X ONCE IVP Last administered on 04/24/21at 18:27; Start 04/24/21 at 16:30; Stop 04/24/21 at 16:31; Status DC Insulin Human Lispro (HumaLOG) 0-9 UNITS Q6HRS SQ Last administered on 05/03/21at 12:24; Start 04/24/21 at 18:00; Stop 05/03/21 at 13:51; Status DC Dextrose (Dextrose 50%-Water Syringe) 12.5 gm PRN Q15MIN PRN IV SEE COMMENTS Last administered on 05/03/21at 04:59; Start 04/24/21 at 16:30; Stop 05/03/21 at 13:54; Status DC Heparin Sodium/ Dextrose 250 ml @ 0 mls/hr CONT PRN IV PER PROTOCOL Last administered on 05/01/21at 05:10; Start 04/24/21 at 16:45; Stop 05/01/21 at 12:32; Status DC Heparin Sodium (Porcine) (Heparin Sodium) 3,200 unit PRN Q6HRS PRN IV FOR UFH LEVEL LESS THAN 0.2 Last administered on 04/24/21at 23:32; Start 04/24/21 at 16:45; Stop 05/01/21 at 12:32; Status DC Cefepime HCl (Maxipime) 1 gm Q12HR IVP Last administered on 04/27/21at 08:09; Start 04/25/21 at 09:00; Stop 04/27/21 at 09:17; Status DC Furosemide (Lasix) 40 mg 1X ONCE IVP ; Start 04/25/21 at 11:30; Stop 04/25/21 at 11:31; Status DC Metoprolol Tartrate (Lopressor Vial) 5 mg 1X ONCE IVP Last administered on 04/25/21at 11:27; Start 04/25/21 at 11:30; Stop 04/25/21 at 11:31; Status DC Info (Anti-Coagulation Monitoring By Pharmacy) 1 each PRN DAILY PRN MC PER PROTOCOL Last administered on 04/26/21at 08:51; Start 04/25/21 at 13:00; Stop 05/02/21 at 07:36; Status DC Digoxin (Lanoxin) 500 mcg 1X ONCE IV Last administered on 04/25/21at 14:52; Start 04/25/21 at 14:45; Stop 04/25/21 at 14:46; Status DC Hydralazine HCl (Apresoline Inj) 10 mg PRN Q4HRS PRN IVP ELEVATED BP, 1ST CHOICE Last administered on 05/04/21at 17:47; Start 04/25/21 at 14:45 Metoprolol Tartrate (Lopressor Vial) 5 mg Q6HRS IVP Last administered on 05/09/21at 06:04; Start 04/25/21 at 18:00 Dexamethasone Sodium Phosphate (Decadron) 6 mg DAILY IVP Last administered on 05/06/21at 08:38; Start 04/25/21 at 17:00; Stop 05/07/21 at 09:18; Status DC Remdesivir 200 mg/ Sodium Chloride 210 ml @ 210 mls/hr 1X ONCE IV Last administered on 04/25/21at 17:09; Start 04/25/21 at 17:30; Stop 04/25/21 at 18:29; Status DC Remdesivir 100 mg/ Sodium Chloride 230 ml @ 460 mls/hr Q24H IV Last administered on 04/29/21at 13:51; Start 04/26/21 at 17:30; Stop 04/29/21 at 17:59; Status DC Midazolam HCl 100 ml @ 0 mls/hr CONT PRN IV SEE PROTOCOL Last administered on 05/02/21at 19:58; Start 04/26/21 at 07:00 Pantoprazole Sodium (PROTONIX VIAL for IV PUSH) 40 mg DAILYAC IVP Last administered on 05/10/21at 08:17; Start 04/26/21 at 09:30 Norepinephrine Bitartrate 8 mg/ Dextrose 258 ml @ 25.349 mls/ hr CONT PRN IV PER PROTOCOL Last administered on 04/26/21at 17:53; Start 04/26/21 at 12:15; Stop 05/02/21 at 20:53; Status DC Digoxin (Lanoxin) 250 mcg 1X ONCE IV Last administered on 04/26/21at 15:02; Start 04/26/21 at 13:00; Stop 04/26/21 at 13:05; Status DC Amiodarone HCl 150 mg/Dextrose 103 ml @ 618 mls/hr 1X ONCE IV Last administered on 04/27/21at 02:30; Start 04/27/21 at 02:30; Stop 04/27/21 at 02:39; Status DC Amiodarone HCl 450 mg/Dextrose 259 ml @ 33 mls/hr CONT PRN IV SEE I/O RECORD; Start 04/27/21 at 02:30; Stop 04/30/21 at 07:56; Status DC Insulin Glargine (Lantus Syringe) 25 unit QHS SQ Last administered on 05/02/21at 21:23; Start 04/27/21 at 21:00; Stop 05/03/21 at 13:45; Status DC Cefepime HCl (Maxipime) 1 gm Q24H IVP Last administered on 05/03/21at 10:02; Start 04/28/21 at 09:30; Stop 05/03/21 at 13:19; Status DC Sodium Bicarbonate (Sodium Bicarb Adult 8.4% Syr) 50 meq 1X ONCE IV Last administered on 04/27/21at 09:50; Start 04/27/21 at 09:45; Stop 04/27/21 at 09:46; Status DC Lidocaine HCl (Buffered Lidocaine 1%) 3 ml STK-MED ONCE .ROUTE ; Start 04/27/21 at 10:57; Stop 04/27/21 at 10:58; Status DC Amiodarone HCl (Cordarone) 200 mg DAILY PO ; Start 04/27/21 at 12:00; Stop 04/27/21 at 12:29; Status DC Lidocaine HCl (Buffered Lidocaine 1%) 3 ml 1X ONCE INJ Last administered on 04/27/21at 11:15; Start 04/27/21 at 11:15; Stop 04/27/21 at 11:16; Status DC Amiodarone HCl (Cordarone) 200 mg DAILY PO Last administered on 05/09/21at 10:00; Start 04/28/21 at 09:00 Sodium Chloride 1,000 ml @ 1,000 mls/hr Q1H PRN IV hypotension; Start 04/28/21 at 11:00; Stop 04/28/21 at 16:59; Status DC Albumin Human 200 ml @ 200 mls/hr 1X PRN PRN IV Hypotension; Start 04/28/21 at 11:00; Stop 04/28/21 at 16:59; Status DC Sodium Chloride (Normal Saline Flush) 10 ml 1X PRN PRN IV AP catheter pack; Start 04/28/21 at 11:00; Stop 04/29/21 at 10:59; Status DC Sodium Chloride (Normal Saline Flush) 10 ml 1X PRN PRN IV PRESSURE STEAMER TENDER catheter pack; Start 04/28/21 at 11:00; Stop 04/29/21 at 10:59; Status DC Sodium Chloride 1,000 ml @ 400 mls/hr Q2H30M PRN IV PATENCY; Start 04/28/21 at 11:00; Stop 04/28/21 at 22:59; Status DC Info (PHARMACY MONITORING -- do not chart) 1 each PRN DAILY PRN MC SEE COMMENTS; Start 04/28/21 at 11:00; Status UNV Info (PHARMACY MONITORING -- do not chart) 1 each PRN DAILY PRN MC SEE COMMENTS; Start 04/28/21 at 11:00; Stop 04/30/21 at 22:39; Status DC Magnesium Sulfate 50 ml @ 25 mls/hr PRN DAILY PRN IV for Mag < 1.7 on am labs; Start 04/29/21 at 10:45 Vecuronium [place] (Norcuron Bolus) 6 mg PRN Q6HRS PRN IV VENTILATOR COMPLIAN CE; Start 04/30/21 at 11:15 Info (PHARMACY MONITORING -- do not chart) 1 each PRN DAILY PRN MC SEE COMMENTS; Start 04/30/21 at 12:30; Status Cancel Labetalol HCl (Normodyne Iv Push) 20 mg PRN Q2HR PRN IVP HYPERTENSION, 2ND CHOICE Last administered on 05/06/21at 17:19; Start 05/01/21 at 12:30 Heparin Sodium (Porcine) (Heparin Sodium) 5,000 unit Q8HRS SQ Last administered on 05/10/21at 06:28; Start 05/01/21 at 14:00 Furosemide (Lasix) 80 mg 1X ONCE IVP Last administered on 05/02/21at 10:45; Start 05/02/21 at 10:45; Stop 05/02/21 at 10:46; Status DC Furosemide (Lasix) 40 mg Q8HRS IVP Last administered on 05/10/21at 06:28; Start 05/02/21 at 14:00 Sodium Chloride 1,000 ml @ 1,000 mls/hr Q1H PRN IV hypotension; Start 05/02/21 at 11:30; Stop 05/02/21 at 17:29; Status DC Albumin Human 200 ml @ 200 mls/hr 1X PRN PRN IV Hypotension; Start 05/02/21 at 11:30; Stop 05/02/21 at 17:29; Status DC Sodium Chloride (Normal Saline Flush) 10 ml 1X PRN PRN IV AP catheter pack; Start 05/02/21 at 11:30; Stop 05/02/21 at 18:00; Status DC Sodium Chloride (Normal Saline Flush) 10 ml 1X PRN PRN IV PRESSURE STEAMER TENDER catheter pack; Start 05/02/21 at 11:30; Stop 05/02/21 at 18:00; Status DC Sodium Chloride 1,000 ml @ 400 mls/hr Q2H30M PRN IV PATENCY; Start 05/02/21 at 11:30; Stop 05/02/21 at 23:29; Status DC Info (PHARMACY MONITORING -- do not chart) 1 each PRN DAILY PRN MC SEE COMMENTS; Start 05/02/21 at 11:30; Status UNV Info (PHARMACY MONITORING -- do not chart) 1 each PRN DAILY PRN MC SEE COMMENTS; Start 05/02/21 at 11:30; Status UNV Norepinephrine Bitartrate 8 mg/ Dextrose 258 ml @ 25.852 mls/ hr CONT PRN IV PER PROTOCOL Last administered on 05/02/21at 21:22; Start 05/02/21 at 21:00; Stop 05/09/21 at 06:10; Status DC Dextrose 1,000 ml @ 50 mls/hr Q20H IV Last administered on 05/03/21at 05:15; Start 05/03/21 at 05:15; Stop 05/03/21 at 13:53; Status DC Aspirin (Aspirin Chewable) 81 mg DAILYWBKFT PO Last administered on 05/10/21at 08:16; Start 05/03/21 at 10:00 Insulin Glargine (Lantus Syringe) 10 unit QHS SQ Last administered on 05/09/21at 21:11; Start 05/03/21 at 21:00 Insulin Human Lispro (HumaLOG) 0-5 UNITS Q6HRS SQ Last administered on 05/10/21at 00:53; Start 05/03/21 at 18:00 Dextrose (Dextrose 50%-Water Syringe) 12.5 gm PRN Q15MIN PRN IV SEE COMMENTS; Start 05/03/21 at 14:00 Sodium Chloride 1,000 ml @ 1,000 mls/hr Q1H PRN IV hypotension; Start 05/04/21 at 07:30; Stop 05/04/21 at 13:29; Status DC Albumin Human 200 ml @ 200 mls/hr 1X PRN PRN IV Hypotension Last administered on 05/04/21at 10:46; Start 05/04/21 at 07:30; Stop 05/04/21 at 13:29; Status DC Sodium Chloride (Normal Saline Flush) 10 ml 1X PRN PRN IV AP catheter pack; Start 05/04/21 at 07:30; Stop 05/05/21 at 07:29; Status DC Sodium Chloride (Normal Saline Flush) 10 ml 1X PRN PRN IV PRESSURE STEAMER TENDER catheter pack; Start 05/04/21 at 07:30; Stop 05/05/21 at 07:29; Status DC Sodium Chloride 1,000 ml @ 400 mls/hr Q2H30M PRN IV PATENCY; Start 05/04/21 at 07:30; Stop 05/04/21 at 19:29; Status DC Info (PHARMACY MONITORING -- do not chart) 1 each PRN DAILY PRN MC SEE COMMENTS; Start 05/04/21 at 07:30; Status UNV Info (PHARMACY MONITORING -- do not chart) 1 each PRN DAILY PRN MC SEE COMMENTS; Start 05/04/21 at 07:30; Stop 05/07/21 at 08:47; Status DC Dexmedetomidine HCl 400 mcg/ Sodium Chloride 100 ml @ 0 mls/hr CONT PRN IV PER PROTOCOL Last administered on 05/10/21at 08:18; Start 05/04/21 at 10:30 Cefepime HCl (Maxipime) 1 gm Q24H IVP Last administered on 05/09/21at 16:41; Start 05/04/21 at 16:00 Daptomycin 600 mg/ Sodium Chloride 50 ml @ 100 mls/hr Q48H IV Last administered on 05/04/21at 15:24; Start 05/04/21 at 15:00; Stop 05/06/21 at 08:07; Status DC Potassium Chloride/Water 100 ml @ 100 mls/hr 1X ONCE IV Last administered on 05/06/21at 09:14; Start 05/06/21 at 08:30; Stop 05/06/21 at 09:29; Status DC Nicardipine HCl 50 mg/Sodium Chloride 250 ml @ 25 mls/hr CONT PRN IV SEE I/O RECORD Last administered on 05/08/21at 21:30; Start 05/06/21 at 18:45 Sodium Chloride 1,000 ml @ 1,000 mls/hr Q1H PRN IV hypotension; Start 05/07/21 at 08:45; Stop 05/07/21 at 14:44; Status DC Albumin Human 200 ml @ 200 mls/hr 1X PRN PRN IV Hypotension Last administered on 05/07/21at 11:41; Start 05/07/21 at 08:45; Stop 05/07/21 at 14:44; Status DC Sodium Chloride 1,000 ml @ 400 mls/hr Q2H30M PRN IV PATENCY; Start 05/07/21 at 08:45; Stop 05/07/21 at 20:44; Status DC Info (PHARMACY MONITORING -- do not chart) 1 each PRN DAILY PRN MC SEE COMMENTS; Start 05/07/21 at 08:45; Status UNV Info (PHARMACY MONITORING -- do not chart) 1 each PRN DAILY PRN MC SEE COMMENTS; Start 05/07/21 at 08:45 Albumin Human 100 ml @ 100 mls/hr 1X ONCE IV ; Start 05/07/21 at 11:45; Stop 05/07/21 at 12:44; Status DC Multi-Ingred Cream/Lotion/Oil/ Oint (Artificial Tears Eye Ointment) 1 danielito PRN Q1HR PRN OU DRY EYE; Start 05/07/21 at 16:00 Potassium Chloride/Water 100 ml @ 100 mls/hr Q1H IV Last administered on 05/08/21at 11:54; Start 05/08/21 at 11:00; Stop 05/08/21 at 12:59; Status DC Potassium Chloride/Water 100 ml @ 100 mls/hr Q1H IV Last administered on 05/09/21at 11:43; Start 05/09/21 at 10:00; Stop 05/09/21 at 11:59; Status DC Potassium Chloride/Water 100 ml @ 100 mls/hr Q1H IV ; Start 05/10/21 at 09:30; Stop 05/10/21 at 11:29; Status UNV Active Scripts Active Glyburide 2.5 Mg Tablet 1 Tab PO DAILY 14 Days Polyethylene Glycol 3350 17 Gm Powd.pack 17 Gm PO DAILY 14 Days Dok (Docusate Sodium) 100 Mg Capsule 100 Mg PO PRN DAILY PRN 30 Days Bisacodyl 5 Mg Tablet. 5 Mg PO PRN DAILY PRN 14 Days Acetaminophen 325 Mg Tablet 650 Mg PO PRN Q4HRS PRN 14 Days Aspirin Ec (Aspirin) 81 Mg Tablet.dr 81 Mg PO DAILYWBKFT 30 Days Hydralazine Hcl 25 Mg Tablet 25 Mg PO QID 30 Days Reported Fenofibrate 54 Mg Tablet 1 Tab PO DAILY Potassium Chloride (Potassium Chloride) 20 Meq Tablet.er 20 Meq PO DAILY Coreg (Carvedilol) 12.5 Mg Tablet 37.5 Mg PO BIDWMEALS Rosuvastatin Calcium 40 Mg Tablet 40 Mg PO QHS Gabapentin (Gabapentin) 100 Mg Capsule 200 Mg PO BID Montelukast Sodium Tablet (Montelukast Sodium) 10 Mg Tablet 10 Mg PO HS Protonix (Pantoprazole Sodium) 20 Mg Tablet.dr 2 Tab PO DAILY Amlodipine Besylate 5 Mg Tablet 5 Mg PO DAILY Furosemide 40 Mg Tablet 1 Tab PO DAILY Proair Hfa Inhaler (Albuterol Sulfate) 8.5 Gm Hfa.aer.ad 2 Puff IH PRN Q4-6HRS PRN 21 Days Advair 100-50 Diskus (Fluticasone/Salmeterol) 1 Each Disk.w.dev 1 Puff IH BID Allergies Allergies: Coded Allergies: Penicillins (Verified Allergy, Intermediate, 04/16/21) morphine (Verified Allergy, Intermediate, 04/16/21) itches real bad all over ROS Review of System unable to obtain Physical Exam General: Other (sedated ) HEENT: Mucous membr. moist/pink, Other (large neck ) Lungs: Other (vent) Heart: Regular rate, Normal S1, Normal S2 Abdomen: Other (ND) Extremities: No clubbing, No cyanosis Vitals VITALS Vital Signs Date Time Temp Pulse Resp B/P (MAP) Pulse Ox O2 Delivery O2 Flow Rate FiO2 05/10/21 08:20 20 99 Ventilator 05/10/21 06:00 44 171/76 (107) 05/10/21 04:00 95.9 95.9 Labs Labs Laboratory Tests Test 05/08/21 12:27 05/08/21 18:05 05/09/21 00:09 05/09/21 05:59 Glucose (Fingerstick) 202 mg/dL (70-99) 168 mg/dL (70-99) 216 mg/dL (70-99) 176 mg/dL (70-99) Test 05/09/21 06:10 05/09/21 07:43 05/09/21 13:45 05/09/21 17:26 White Blood Count 19.8 x10^3/uL (4.0-11.0) Red Blood Count 3.08 x10^6/uL (4.30-5.70) Hemoglobin 8.2 g/dL (13.0-17.5) Hematocrit 25.1 % (39.0-53.0) Mean Corpuscular Volume 82 fL (79-100) Mean Corpuscular Hemoglobin 27 pg (25-35) Mean Corpuscular Hemoglobin Concent 33 g/dL (31-37) Red Cell Distribution Width 15.8 % (11.5-14.5) Platelet Count 344 x10^3/uL (140-400) Neutrophils (%) (Auto) 84 % (31-73) Lymphocytes (%) (Auto) 7 % (24-48) Monocytes (%) (Auto) 7 % (0-9) Eosinophils (%) (Auto) 1 % (0-3) Basophils (%) (Auto) 0 % (0-3) Neutrophils # (Auto) 16.5 x10^3/uL (1.8-7.7) Lymphocytes # (Auto) 1.4 x10^3/uL (1.0-4.8) Monocytes # (Auto) 1.5 x10^3/uL (0.0-1.1) Eosinophils # (Auto) 0.3 x10^3/uL (0.0-0.7) Basophils # (Auto) 0.1 x10^3/uL (0.0-0.2) Sodium Level 129 mmol/L (136-145) Potassium Level 3.1 mmol/L (3.5-5.1) Chloride Level 94 mmol/L (98-107) Carbon Dioxide Level 26 mmol/L (21-32) Anion Gap 9 (6-14) Blood Urea Nitrogen 46 mg/dL (8-26) Creatinine 2.7 mg/dL (0.7-1.3) Estimated GFR (Cockcroft-Gault) 28.1 BUN/Creatinine Ratio 17 (6-20) Glucose Level 178 mg/dL (70-99) Calcium Level 8.5 mg/dL (8.5-10.1) Total Bilirubin 0.6 mg/dL (0.2-1.0) Aspartate Amino Transf (AST/SGOT) 57 U/L (15-37) Alanine Aminotransferase (ALT/SGPT) 44 U/L (16-63) Alkaline Phosphatase 74 U/L (46-116) Total Protein 6.0 g/dL (6.4-8.2) Albumin 1.9 g/dL (3.4-5.0) Albumin/Globulin Ratio 0.5 (1.0-1.7) O2 Saturation 90 % (92-99) Arterial Blood pH 7.42 (7.35-7.45) Arterial Blood pCO2 at Patient Temp 35 mmHg (35-46) Arterial Blood pO2 at Patient Temp 60 mmHg (65-108) Arterial Blood HCO3 22 mmol/L (21-28) Arterial Blood Base Excess -2 mmol/L (-3-3) FiO2 40 Glucose (Fingerstick) 183 mg/dL (70-99) 163 mg/dL (70-99) Test 05/10/21 00:50 05/10/21 06:25 05/10/21 08:00 Glucose (Fingerstick) 164 mg/dL (70-99) 141 mg/dL (70-99) White Blood Count 15.3 x10^3/uL (4.0-11.0) Red Blood Count 2.81 x10^6/uL (4.30-5.70) Hemoglobin 7.5 g/dL (13.0-17.5) Hematocrit 22.9 % (39.0-53.0) Mean Corpuscular Volume 82 fL (79-100) Mean Corpuscular Hemoglobin 27 pg (25-35) Mean Corpuscular Hemoglobin Concent 33 g/dL (31-37) Red Cell Distribution Width 15.6 % (11.5-14.5) Platelet Count 288 x10^3/uL (140-400) Neutrophils (%) (Auto) 81 % (31-73) Lymphocytes (%) (Auto) 10 % (24-48) Monocytes (%) (Auto) 8 % (0-9) Eosinophils (%) (Auto) 1 % (0-3) Basophils (%) (Auto) 0 % (0-3) Neutrophils # (Auto) 12.4 x10^3/uL (1.8-7.7) Lymphocytes # (Auto) 1.5 x10^3/uL (1.0-4.8) Monocytes # (Auto) 1.2 x10^3/uL (0.0-1.1) Eosinophils # (Auto) 0.2 x10^3/uL (0.0-0.7) Basophils # (Auto) 0.0 x10^3/uL (0.0-0.2) Sodium Level 132 mmol/L (136-145) Potassium Level 2.6 mmol/L (3.5-5.1) Chloride Level 99 mmol/L (98-107) Carbon Dioxide Level 21 mmol/L (21-32) Anion Gap 12 (6-14) Blood Urea Nitrogen 47 mg/dL (8-26) Creatinine 2.7 mg/dL (0.7-1.3) Estimated GFR (Cockcroft-Gault) 28.1 BUN/Creatinine Ratio 17 (6-20) Glucose Level 164 mg/dL (70-99) Calcium Level 7.8 mg/dL (8.5-10.1) Total Bilirubin 0.4 mg/dL (0.2-1.0) Aspartate Amino Transf (AST/SGOT) 38 U/L (15-37) Alanine Aminotransferase (ALT/SGPT) 32 U/L (16-63) Alkaline Phosphatase 58 U/L (46-116) Total Protein 5.1 g/dL (6.4-8.2) Albumin 1.4 g/dL (3.4-5.0) Albumin/Globulin Ratio 0.4 (1.0-1.7) O2 Saturation 95 % (92-99) Arterial Blood pH 7.42 (7.35-7.45) Arterial Blood pCO2 at Patient Temp 34 mmHg (35-46) Arterial Blood pO2 at Patient Temp 78 mmHg (65-108) Arterial Blood HCO3 22 mmol/L (21-28) Arterial Blood Base Excess -3 mmol/L (-3-3) FiO2 40%+5 Laboratory Tests Test 05/09/21 13:45 05/09/21 17:26 05/10/21 00:50 05/10/21 06:25 Glucose (Fingerstick) 183 mg/dL (70-99) 163 mg/dL (70-99) 164 mg/dL (70-99) 141 mg/dL (70-99) White Blood Count 15.3 x10^3/uL (4.0-11.0) Red Blood Count 2.81 x10^6/uL (4.30-5.70) Hemoglobin 7.5 g/dL (13.0-17.5) Hematocrit 22.9 % (39.0-53.0) Mean Corpuscular Volume 82 fL (79-100) Mean Corpuscular Hemoglobin 27 pg (25-35) Mean Corpuscular Hemoglobin Concent 33 g/dL (31-37) Red Cell Distribution Width 15.6 % (11.5-14.5) Platelet Count 288 x10^3/uL (140-400) Neutrophils (%) (Auto) 81 % (31-73) Lymphocytes (%) (Auto) 10 % (24-48) Monocytes (%) (Auto) 8 % (0-9) Eosinophils (%) (Auto) 1 % (0-3) Basophils (%) (Auto) 0 % (0-3) Neutrophils # (Auto) 12.4 x10^3/uL (1.8-7.7) Lymphocytes # (Auto) 1.5 x10^3/uL (1.0-4.8) Monocytes # (Auto) 1.2 x10^3/uL (0.0-1.1) Eosinophils # (Auto) 0.2 x10^3/uL (0.0-0.7) Basophils # (Auto) 0.0 x10^3/uL (0.0-0.2) Sodium Level 132 mmol/L (136-145) Potassium Level 2.6 mmol/L (3.5-5.1) Chloride Level 99 mmol/L (98-107) Carbon Dioxide Level 21 mmol/L (21-32) Anion Gap 12 (6-14) Blood Urea Nitrogen 47 mg/dL (8-26) Creatinine 2.7 mg/dL (0.7-1.3) Estimated GFR (Cockcroft-Gault) 28.1 BUN/Creatinine Ratio 17 (6-20) Glucose Level 164 mg/dL (70-99) Calcium Level 7.8 mg/dL (8.5-10.1) Total Bilirubin 0.4 mg/dL (0.2-1.0) Aspartate Amino Transf (AST/SGOT) 38 U/L (15-37) Alanine Aminotransferase (ALT/SGPT) 32 U/L (16-63) Alkaline Phosphatase 58 U/L (46-116) Total Protein 5.1 g/dL (6.4-8.2) Albumin 1.4 g/dL (3.4-5.0) Albumin/Globulin Ratio 0.4 (1.0-1.7) Test 05/10/21 08:00 O2 Saturation 95 % (92-99) Arterial Blood pH 7.42 (7.35-7.45) Arterial Blood pCO2 at Patient Temp 34 mmHg (35-46) Arterial Blood pO2 at Patient Temp 78 mmHg (65-108) Arterial Blood HCO3 22 mmol/L (21-28) Arterial Blood Base Excess -3 mmol/L (-3-3) FiO2 40%+5 Assessment/Plan Assessment/Plan respiratory failure will review with Dr Duron on trach placement TIO DURON MD 05/10/21 1421: CONSULT Assessment/Plan Assessment/Plan Pt seen and examined. Agree with Ms. Mccoy's note Will investigate timing of trach Thanks for consult! YESENIA MCCOY APRN May 10, 2021 09:25 TIO DURON MD May 10, 2021 14:21
[2021-05-10] MEDS: POTASSIUM CHLORIDE 20MEQ 100 ML IV SCH ×2 (09:39→10:56)
[2021-05-10] MEDS: hydrALAZINE 25 MG TABLET PO SCH ×4 (10:00→20:51)
--- NOTE | 2021-05-10 10:13 | NUR ---
SS following up with discharge planning. SS reviewed pt chart and discussed with pt RN. Pt is currently on the vent at 40%. COVID19 positive. Pt on IV Cefepime and IV Lasix. Pt on Propofol, Fentanyl, and Precedex. Nephrology following for hemodialysis. Not stable. SS will continue to follow for discharge planning. Addendum: 05/10/21 at [address] Duron consulted for trach.
--- NOTE | 2021-05-10 12:11 | PDOC ---
BON SAWANT CREAM SEPARATOR OPERATOR 05/10/21 1211: CARDIO Progress Notes Date and Time Date of Service 05/10/2021 Time of Evaluation 1140 Subjective Subjective: Other (intubated ) Vitals Vitals Vital Signs Date Time Temp Pulse Resp B/P (MAP) Pulse Ox O2 Delivery O2 Flow Rate FiO2 05/10/21 12:00 48 05/10/21 11:59 100 Ventilator 05/10/21 11:00 95.5 20 150/63 (92) 95.5 Weight Weight [ ] Input and Output Intake and Output Intake and Output 05/10/21 07:00 Intake Total 4767 ml Output Total 2500 ml Balance 2267 ml IV Total 1351 ml Tube Feeding 2018 ml Other 1398 ml Output Urine Total 2500 ml Gastric Drainage Total 0 ml Laboratory Labs Laboratory Tests Test 05/09/21 13:45 05/09/21 17:26 05/10/21 00:50 05/10/21 06:25 Glucose (Fingerstick) 183 mg/dL (70-99) 163 mg/dL (70-99) 164 mg/dL (70-99) 141 mg/dL (70-99) White Blood Count 15.3 x10^3/uL (4.0-11.0) Red Blood Count 2.81 x10^6/uL (4.30-5.70) Hemoglobin 7.5 g/dL (13.0-17.5) Hematocrit 22.9 % (39.0-53.0) Mean Corpuscular Volume 82 fL (79-100) Mean Corpuscular Hemoglobin 27 pg (25-35) Mean Corpuscular Hemoglobin Concent 33 g/dL (31-37) Red Cell Distribution Width 15.6 % (11.5-14.5) Platelet Count 288 x10^3/uL (140-400) Neutrophils (%) (Auto) 81 % (31-73) Lymphocytes (%) (Auto) 10 % (24-48) Monocytes (%) (Auto) 8 % (0-9) Eosinophils (%) (Auto) 1 % (0-3) Basophils (%) (Auto) 0 % (0-3) Neutrophils # (Auto) 12.4 x10^3/uL (1.8-7.7) Lymphocytes # (Auto) 1.5 x10^3/uL (1.0-4.8) Monocytes # (Auto) 1.2 x10^3/uL (0.0-1.1) Eosinophils # (Auto) 0.2 x10^3/uL (0.0-0.7) Basophils # (Auto) 0.0 x10^3/uL (0.0-0.2) Sodium Level 132 mmol/L (136-145) Potassium Level 2.6 mmol/L (3.5-5.1) Chloride Level 99 mmol/L (98-107) Carbon Dioxide Level 21 mmol/L (21-32) Anion Gap 12 (6-14) Blood Urea Nitrogen 47 mg/dL (8-26) Creatinine 2.7 mg/dL (0.7-1.3) Estimated GFR (Cockcroft-Gault) 28.1 BUN/Creatinine Ratio 17 (6-20) Glucose Level 164 mg/dL (70-99) Calcium Level 7.8 mg/dL (8.5-10.1) Total Bilirubin 0.4 mg/dL (0.2-1.0) Aspartate Amino Transf (AST/SGOT) 38 U/L (15-37) Alanine Aminotransferase (ALT/SGPT) 32 U/L (16-63) Alkaline Phosphatase 58 U/L (46-116) Total Protein 5.1 g/dL (6.4-8.2) Albumin 1.4 g/dL (3.4-5.0) Albumin/Globulin Ratio 0.4 (1.0-1.7) Test 05/10/21 08:00 05/10/21 11:55 O2 Saturation 95 % (92-99) Arterial Blood pH 7.42 (7.35-7.45) Arterial Blood pCO2 at Patient Temp 34 mmHg (35-46) Arterial Blood pO2 at Patient Temp 78 mmHg (65-108) Arterial Blood HCO3 22 mmol/L (21-28) Arterial Blood Base Excess -3 mmol/L (-3-3) FiO2 40%+5 Glucose (Fingerstick) 177 mg/dL (70-99) Microbiology Micro Microbiology 05/04/21 Gram Stain Evaluation - Final, Complete 05/04/21 Respiratory Culture - Final, Complete 05/04/21 Gram Stain - Final, Complete 05/04/21 Aerobic Culture - Final, Complete 05/04/21 Blood Culture - Final, Complete NO GROWTH AFTER 5 DAYS Review of Systems Constitutional: yes: unresponsive, other (UNABLE TO OBTAIN) Physical Exam HEENT: Neck Supple W Full Motion Chest: Symmetric LUNGS: Other (MV) Heart: RRR (SR/SB) Abdomen: Other (soft) Extremities: Other (1+ bilateral LE edema ) Neurology: other (sedated) Assessment Assessment 1. Acute respiratory failure secondary to CHF, s/p intubation. COVID + 2. Acute on chronic diastolic CHF 3. Hypertensive urgency; controlled. off cardene 4. NSTEMI; trop highest 2.8. Echo last week with preserved LV systolic function with moderate LVH. Most probable type II, demand ischemia in setting of above, although underling ischemic cannot be ruled out 5. ? CAD; details unknown 6. Hyperlipidemia; statin 7. 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 Diabetes, II 9. Leukocytosis 10. H/o bilateral subclavian stenosis s/p left subclavian sent placement complicated by retroperitoneal hematoma s/p evacuation in 08/2015. 11. New AFIB with RVR: maintaining SR with PACs 12. Protein malnutrition 13. anemia: Hgb at 8.2 14. Sinus bradycardia: no pauses lowest 40s 15. Hypothermia: improved Recommendations 1. ASA, statin 2. Metoprolol for rate control may hold per HR trend. Hydralazine IV PRN 3. Continue Amiodarone for rhythm maintenance 4. SQ heparin 5. Fluid offloading via HD. Defer lasix to nephrology. Replace K 6. Ongoing lung optimization, treatment of COVID PNA as per pulm 7. Supportive care Justicifation of Admission Dx: Justifications for Admission: Justification of Admission Dx: Yes Aspiration Pneumonia: Hemodynamic Instability VIDAL RODRIGUEZ MD 05/10/21 1802: CARDIO Progress Notes Assessment Assessment Patient seen and evaluated. I agree with our nurse practitioners assessment and plan. Acute respiratory failure secondary to CHF, s/p intubation. COVID +. Continuing as per the pulmonary service. Acute on chronic diastolic CHF Hypertensive urgency; controlled. off cardene NSTEMI; trop highest 2.8. Echo last week with preserved LV systolic function with moderate LVH. Most probable type II, demand ischemia in setting of above, although underling ischemic cannot be ruled out Hyperlipidemia; statin ILDA on CKD; On HD H/o bilateral subclavian stenosis s/p left subclavian sent placement complicated by retroperitoneal hematoma s/p evacuation in 08/2015. New AFIB with RVR: maintaining SR with PACs Sinus bradycardia: no pauses lowest 40s BON SAWANT APRN May 10, 2021 12:11 VIDAL RODRIGUEZ MD May 10, 2021 18:02
[2021-05-10] MEDS ORDERED: MAGNESIUM SULFATE 2GM 50 ML IV ONE (13:30)
[2021-05-10] MEDS: hydrALAZINE 20 MG/ML VIAL. IVP PRN (13:42)
[2021-05-10] MEDS: CEFEPIME HCL IV Push 1 GM VIAL. IVP SCH (16:31)
[2021-05-10] MEDS: ATORVASTATIN CALCIUM 40 MG TABLET. PO SCH (20:51)
[2021-05-10] MEDS: MONTELUKAST SODIUM 10 MG TABLET. PO SCH (20:51)
[2021-05-10] MEDS: INSULIN GLARGINE SYRINGE. SQ SCH (20:53)
[2021-05-11] VITALS (24 sets, daily range): BP systolic 90–194; BP diastolic 42–94
[2021-05-11] MEDS: METOPROLOL IV PUSH 5 MG/5 ML VIAL. IVP SCH ×4 (00:08→17:48)
[2021-05-11] MEDS: INSULIN LISPRO 300 UNITS/3 ML VIAL. SQ SCH ×4 (00:14→17:52)
[2021-05-11] MEDS: PROPOFOL 100 ML IV PRN ×7 (01:08→21:11)
--- NOTE | 2021-05-11 06:31 | PDOC ---
PULMONARY PROGRESS NOTES DATE: 05/11/21 TIME: 06:28 Subjective Remains on ventilatory support 40%/peep of 5 Sedated on propofol, fentanyl, and Precedex No overnight concerns Vitals Vital Signs Date Time Temp Pulse Resp B/P (MAP) Pulse Ox O2 Delivery O2 Flow Rate FiO2 05/11/21 05:03 66 20 160/63 (95) 100 Ventilator 05/11/21 04:00 97.6 97.6 Comments Visual exam done due to COVID-19. Intubated and sedated No paradoxical breathing. Labs Laboratory Tests Test 05/09/21 07:43 05/09/21 13:45 05/09/21 17:26 05/10/21 00:50 O2 Saturation 90 % (92-99) Arterial Blood pH 7.42 (7.35-7.45) Arterial Blood pCO2 at Patient Temp 35 mmHg (35-46) Arterial Blood pO2 at Patient Temp 60 mmHg (65-108) Arterial Blood HCO3 22 mmol/L (21-28) Arterial Blood Base Excess -2 mmol/L (-3-3) FiO2 40 Glucose (Fingerstick) 183 mg/dL (70-99) 163 mg/dL (70-99) 164 mg/dL (70-99) Test 05/10/21 06:25 05/10/21 08:00 05/10/21 11:55 05/10/21 17:32 White Blood Count 15.3 x10^3/uL (4.0-11.0) Red Blood Count 2.81 x10^6/uL (4.30-5.70) Hemoglobin 7.5 g/dL (13.0-17.5) Hematocrit 22.9 % (39.0-53.0) Mean Corpuscular Volume 82 fL (79-100) Mean Corpuscular Hemoglobin 27 pg (25-35) Mean Corpuscular Hemoglobin Concent 33 g/dL (31-37) Red Cell Distribution Width 15.6 % (11.5-14.5) Platelet Count 288 x10^3/uL (140-400) Neutrophils (%) (Auto) 81 % (31-73) Lymphocytes (%) (Auto) 10 % (24-48) Monocytes (%) (Auto) 8 % (0-9) Eosinophils (%) (Auto) 1 % (0-3) Basophils (%) (Auto) 0 % (0-3) Neutrophils # (Auto) 12.4 x10^3/uL (1.8-7.7) Lymphocytes # (Auto) 1.5 x10^3/uL (1.0-4.8) Monocytes # (Auto) 1.2 x10^3/uL (0.0-1.1) Eosinophils # (Auto) 0.2 x10^3/uL (0.0-0.7) Basophils # (Auto) 0.0 x10^3/uL (0.0-0.2) Sodium Level 132 mmol/L (136-145) Potassium Level 2.6 mmol/L (3.5-5.1) Chloride Level 99 mmol/L (98-107) Carbon Dioxide Level 21 mmol/L (21-32) Anion Gap 12 (6-14) Blood Urea Nitrogen 47 mg/dL (8-26) Creatinine 2.7 mg/dL (0.7-1.3) Estimated GFR (Cockcroft-Gault) 28.1 BUN/Creatinine Ratio 17 (6-20) Glucose Level 164 mg/dL (70-99) Glucose (Fingerstick) 141 mg/dL (70-99) 177 mg/dL (70-99) 194 mg/dL (70-99) Calcium Level 7.8 mg/dL (8.5-10.1) Magnesium Level 1.7 mg/dL (1.8-2.4) Total Bilirubin 0.4 mg/dL (0.2-1.0) Aspartate Amino Transf (AST/SGOT) 38 U/L (15-37) Alanine Aminotransferase (ALT/SGPT) 32 U/L (16-63) Alkaline Phosphatase 58 U/L (46-116) Total Protein 5.1 g/dL (6.4-8.2) Albumin 1.4 g/dL (3.4-5.0) Albumin/Globulin Ratio 0.4 (1.0-1.7) O2 Saturation 95 % (92-99) Arterial Blood pH 7.42 (7.35-7.45) Arterial Blood pCO2 at Patient Temp 34 mmHg (35-46) Arterial Blood pO2 at Patient Temp 78 mmHg (65-108) Arterial Blood HCO3 22 mmol/L (21-28) Arterial Blood Base Excess -3 mmol/L (-3-3) FiO2 40%+5 Test 05/11/21 00:07 05/11/21 05:45 Glucose (Fingerstick) 152 mg/dL (70-99) 145 mg/dL (70-99) Laboratory Tests Test 05/10/21 08:00 05/10/21 11:55 05/10/21 17:32 05/11/21 00:07 O2 Saturation 95 % (92-99) Arterial Blood pH 7.42 (7.35-7.45) Arterial Blood pCO2 at Patient Temp 34 mmHg (35-46) Arterial Blood pO2 at Patient Temp 78 mmHg (65-108) Arterial Blood HCO3 22 mmol/L (21-28) Arterial Blood Base Excess -3 mmol/L (-3-3) FiO2 40%+5 Glucose (Fingerstick) 177 mg/dL (70-99) 194 mg/dL (70-99) 152 mg/dL (70-99) Test 05/11/21 05:45 Glucose (Fingerstick) 145 mg/dL (70-99) Medications Active Scripts Medications Dose Route/Sig Max Daily Dose Days Date Category Glyburide 2.5 Mg Tablet 1 Tab PO DAILY 04/19/21 Rx Polyethylene Glycol 3350 17 Gm Powd.pack 17 Gm PO DAILY 04/19/21 Rx Dok (Docusate Sodium) 100 Mg Capsule 100 Mg PO PRN DAILY PRN 04/19/21 Rx Bisacodyl 5 Mg Tablet. 5 Mg PO PRN DAILY PRN 04/19/21 Rx Acetaminophen 325 Mg Tablet 650 Mg PO PRN Q4HRS PRN 04/19/21 Rx Aspirin Ec (Aspirin) 81 Mg Tablet. 81 Mg PO [id number] 04/19/21 Rx Hydralazine Hcl 25 Mg Tablet 25 Mg PO QID 30 04/19/21 Rx Fenofibrate 54 Mg Tablet 1 Tab PO DAILY 04/17/21 Reported Potassium Chloride (Potassium Chloride) 20 Meq Tablet.er 20 Meq PO DAILY 04/17/21 Reported Coreg (Carvedilol) 12.5 Mg Tablet 37.5 Mg PO BIDWMEALS 04/17/21 Reported Rosuvastatin Calcium 40 Mg Tablet 40 Mg PO QHS 04/17/21 Reported Gabapentin (Gabapentin) 100 Mg Capsule 200 Mg PO BID 04/17/21 Reported Montelukast Sodium Tablet (Montelukast Sodium) 10 Mg Tablet 10 Mg PO HS 04/17/21 Reported Protonix (Pantoprazole Sodium) 20 Mg Tablet.dr 2 Tab PO DAILY 04/17/21 Reported Amlodipine Besylate 5 Mg Tablet 5 Mg PO DAILY 04/17/21 Reported Furosemide 40 Mg Tablet 1 Tab PO DAILY 04/17/21 Reported Proair Hfa Inhaler (Albuterol Sulfate) 8.5 Gm Hfa.aer.ad 2 Puff IH PRN Q4-6HRS PRN 21 04/16/21 Reported Advair 100-50 Diskus (Fluticasone/Salmeterol) 1 Each Disk.w.dev 1 Puff IH BID 04/16/21 Reported Comments Impression . IMPRESSION: 1. Acute hypoxic respiratory failure, multifactorial/COVID-19 viral pneumonia/ARDS, ongoing, intubated 04/25/[address] chest with bilateral diffuse interstitial infiltrates without any significant pleural effusion 3. Leukocytosis, sepsis--ongoing ID following 4. Non-ST segment elevation SD 5. History of tobacco use, suspect COPD, unknown FEV1 6. Chronic kidney disease.== Neph neurology following, hemodialysis currently on hold 7. Metabolic acidosis multifactorial 8. Abnormal chest x-ray 9. Hypoglycemia, continue to monitor 10. Hypotension, suspect volume deficit,/possible sepsis 11. Fever--resolved Plan . Updated 05/11/21 Continue current vent support 20/500/40%/5. While awaiting tracheostomy, will initiate another trial of CPAP if tolerates. Follow ABG/CXR--changes as needed Follow ID recs for ABX --Continue cefepime Follow surgery recommendations for tracheostomy Follow nephrology recs-- HD --hemodialysis currently on hold Follow Cardiology recs--preserved LV function, hypertension, off Cardene drip continue TF for nutritional support DVT/GI PPX:subQ heparin D/W RN and RT Pt. is DNR cct 30 min Updated 05/10/21 Patient was intubated 04/25/2021, unable to tolerate pressure support trials, we will consult surgery at this time for possible tracheostomy Continue current vent support 20/500/40%/5, attempt sedation vacation, patient did not tolerate reducing sedation 05/08/2021 became very tachypneic and hypertensive, again patient did not tolerate reducing sedation or pressure support trial on 05/09/2021 secondary to increased respiratory rate and increased blood pressure. Follow ABG/CXR--reviewed Patient has completed full course of steroids Follow ID recs for ABX --Continue cefepime Follow nephrology recs-- HD Follow Cardiology recs--preserved LV function, hypertension, remains on Cardene drip Hyperglycemia Per PCP continue TF for nutritional support DVT/GI PPX:subQ heparin D/W RN and RT Pt. is DNR I have discussed with patient's DPOA. I did explain to her about the need for tracheostomy. She is agreeable to proceed. General surgery has been consulted. cct 30 min Updated 05/09/21 Continue current vent support 20/500/40%/5, attempt sedation vacation, patient did not tolerate reducing sedation 05/08/2021 became very tachypneic and hypertensive Follow ABG/CXR--reviewed no changes Patient has completed full course of steroids Follow ID recs for ABX --Continue cefepime-- Follow cultures Follow nephrology recs-- HD Follow Cardiology recs--preserved LV function, hypertension, currently on Cardene drip Hyperglycemia Per PCP continue TF for nutritional support DVT/GI PPX:subQ heparin D/W RN and RT Pt. is DNR Addendum; patient became hypotensive when sedation was taken off. Had to be resedated and CPAP trial withheld cct 30 min JONES FISHMAN MD May 11, 2021 06:31
[2021-05-11] MEDS: FUROSEMIDE 40 MG/4 ML VIAL. IVP SCH ×4 (06:39→22:06)
[2021-05-11] MEDS: HEPARIN for SUB-Q USE 5,000 UNIT/ML VIAL. SQ SCH ×3 (06:40→21:59)
[2021-05-11 06:50] LABS: CALCIUM 8.4 mg/dL (8.5-10.1); GFR 24.9; POTASSIUM 3.3 mmol/L (3.5-5.1)
[2021-05-11 07:11] LABS: BASO # 0.1 x10^3/uL (0.0-0.2); BASO % 0 % (0-3); EOS # 0.2 x10^3/uL (0.0-0.7); EOS % 1 % (0-3); HEMATOCRIT 24.1 % (39.0-53.0); HEMOGLOBIN 7.8 g/dL (13.0-17.5); LYMPH # 1.5 x10^3/uL (1.0-4.8); LYMPH % 9 % (24-48); MEAN CORPUSCULAR HEMOGLOBIN 27 pg (25-35); MEAN CORPUSCULAR HGB CONC 33 g/dL (31-37); MEAN CORPUSCULAR VOLUME 82 fL (79-100); MONO # 1.4 x10^3/uL (0.0-1.1); MONO % 8 % (0-9); NEUT # 13.7 x10^3/uL (1.8-7.7); NEUT % 81 % (31-73); PLATELET COUNT 347 x10^3/uL (140-400); RED BLOOD COUNT 2.94 x10^6/uL (4.30-5.70); RED CELL DISTRIBUTION WIDTH 15.8 % (11.5-14.5); WHITE BLOOD COUNT 16.9 x10^3/uL (4.0-11.0)
[2021-05-11] MEDS: PANTOPRAZOLE IV PUSH 40 MG VIAL. IVP SCH (07:11)
[2021-05-11] MEDS: ASPIRIN CHEWABLE 81 MG TABLET. PO SCH (07:13)
--- NOTE | 2021-05-11 07:20 | PDOC ---
Infectious Disease Note Subjective Subjective Patient intubated/sedated ROS ROS no n/v/d/ Vital Sign Vital Signs Vital Signs Date Time Temp Pulse Resp B/P (MAP) Pulse Ox O2 Delivery O2 Flow Rate FiO2 05/11/21 07:13 20 100 Ventilator 05/11/21 06:42 59 123/50 (74) 05/11/21 04:00 97.6 97.6 Physical Exam PHYSICAL EXAM GENERAL: Well-developed and well-nourished male, intubated, sedated. HEENT: Normocephalic, atraumatic, and anicteric. ETT and OGT present. NECK: Right IJ removed, right dialysis catheter present clean HEART: S1, S2. LUNGS: Decreased breath sounds. ABDOMEN: Soft, obese, bowel sounds present. GENITOURINARY: Nieves in place. EXTREMITIES: Edema present. DERMATOLOGIC: Warm, dry, no generalized rash. NEUROLOGIC: Intubated. PSYCHIATRIC: Unable to obtain. Labs Lab Laboratory Tests Test 05/10/21 08:00 05/10/21 11:55 05/10/21 17:32 05/11/21 00:07 O2 Saturation 95 % (92-99) Arterial Blood pH 7.42 (7.35-7.45) Arterial Blood pCO2 at Patient Temp 34 mmHg (35-46) Arterial Blood pO2 at Patient Temp 78 mmHg (65-108) Arterial Blood HCO3 22 mmol/L (21-28) Arterial Blood Base Excess -3 mmol/L (-3-3) FiO2 40%+5 Glucose (Fingerstick) 177 mg/dL (70-99) 194 mg/dL (70-99) 152 mg/dL (70-99) Test 05/11/21 05:45 05/11/21 06:30 Glucose (Fingerstick) 145 mg/dL (70-99) White Blood Count 16.9 x10^3/uL (4.0-11.0) Red Blood Count 2.94 x10^6/uL (4.30-5.70) Hemoglobin 7.8 g/dL (13.0-17.5) Hematocrit 24.1 % (39.0-53.0) Mean Corpuscular Volume 82 fL (79-100) Mean Corpuscular Hemoglobin 27 pg (25-35) Mean Corpuscular Hemoglobin Concent 33 g/dL (31-37) Red Cell Distribution Width 15.8 % (11.5-14.5) Platelet Count 347 x10^3/uL (140-400) Neutrophils (%) (Auto) 81 % (31-73) Lymphocytes (%) (Auto) 9 % (24-48) Monocytes (%) (Auto) 8 % (0-9) Eosinophils (%) (Auto) 1 % (0-3) Basophils (%) (Auto) 0 % (0-3) Neutrophils # (Auto) 13.7 x10^3/uL (1.8-7.7) Lymphocytes # (Auto) 1.5 x10^3/uL (1.0-4.8) Monocytes # (Auto) 1.4 x10^3/uL (0.0-1.1) Eosinophils # (Auto) 0.2 x10^3/uL (0.0-0.7) Basophils # (Auto) 0.1 x10^3/uL (0.0-0.2) Sodium Level 130 mmol/L (136-145) Potassium Level 3.3 mmol/L (3.5-5.1) Chloride Level 95 mmol/L (98-107) Carbon Dioxide Level 22 mmol/L (21-32) Anion Gap 13 (6-14) Blood Urea Nitrogen 51 mg/dL (8-26) Creatinine 3.0 mg/dL (0.7-1.3) Estimated GFR (Cockcroft-Gault) 24.9 Glucose Level 145 mg/dL (70-99) Calcium Level 8.4 mg/dL (8.5-10.1) Micro Microbiology 05/04/21 Gram Stain Evaluation - Final, Resulted 05/04/21 Respiratory Culture - Preliminary, Resulted 05/04/21 Gram Stain - Final, Resulted 05/04/21 Aerobic Culture - Preliminary, Resulted 05/04/21 Blood Culture - Preliminary, Resulted NO GROWTH AFTER 2 DAYS Objective Assessment 1. Febrile illness could be healthcare-associated infection 2. Leukocytosis, on steroids. 3. COVID-19 pneumonia. 4. Acute hypoxic respiratory failure status post intubation. 5. Congestive heart failure, acute on chronic. 6. Acute kidney injury on chronic kidney disease on hemodialysis. 7. Diabetes mellitus 2. 8. Atrial fibrillation. 9. Anemia. 10. Protein-calorie malnutrition. 11. Hypertention Plan Plan of Care 1. Continue cefepime , add zyvox, sputum culture 2. Follow-up labs and cultures 3. Change central line and send cath tip for cultures. 4. Check C. difficile PCR 5. Continue supportive care. 6. Critically ill. Discussed with nursing staff JAD RIVERO MD May 11, 2021 07:20
[2021-05-11 07:56] LABS: BASE EXCESS ABG -3 mmol/L (-3-3); HCO3 ABG 21 mmol/L (21-28); PCO2 ABG 36 mmHg (35-46); SAT O2 ABG 79 % (92-99)
[2021-05-11 07:58] LABS: FIO2 ABG 40; PO2 ABG 46 mmHg (65-108)
[2021-05-11] MEDS: hydrALAZINE 25 MG TABLET PO SCH ×4 (08:46→21:00)
[2021-05-11] MEDS: AMIODARONE HCL 200 MG TABLET. PO SCH (08:46)
--- NOTE | 2021-05-11 09:18 | PDOC ---
DATE OF SERVICE DATE: 05/11/21 TIME: 09:17 SUBJECTIVE ROS Remains intubated No Overnight concerns OBJECTIVE Vital Signs Vital Signs Date Time Temp Pulse Resp B/P (MAP) Pulse Ox O2 Delivery O2 Flow Rate FiO2 05/11/21 08:46 85 176/104 05/11/21 07:43 20 100 Ventilator 05/11/21 04:00 97.6 97.6 I & 0 Intake and Output 05/11/21 07:00 Intake Total 4809 ml Output Total 2000 ml Balance 2809 ml IV Total 1094 ml Tube Feeding 2001 ml Other 1714 ml Output Urine Total 2000 ml PHYSICAL EXAM Physical Exam Physical Exam GENERAL: intubated, HEENT: anicteric. ETT and OGT present. NECK: , right dialysis catheter+, HEART: S1, S2. LUNGS: Decreased breath sounds. ABDOMEN: Soft,bowel sounds present. GENITOURINARY: Nieves in place. EXTREMITIES: Edema present. DERMATOLOGIC: Warm, dry, no generalized rash. NEUROLOGIC: Intubated. PSYCHIATRIC: Unable to obtain. 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 Last HD was Friday . Clearance not improving as expected . Will need dialysis , discussed treatment plan with [facility] HypoKalemia- , 2/2 furosemide . 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 Recent CT Atrophic appearance of the right kidney. COVID-19 positive - Abnormal CT chest with bilateral diffuse interstitial infiltrates without any significant pleural effusion. Acute respiratory failure with Hypoxia Intubated ; CxR Mild pulmonary edema with new small right pleural effusion and basilar opacities. Unchanged small left pleural effusion and basilar opacities. Atrial Fib- per Cardiology Cholelithiasis Anemia . BETTY held 2/2 Hypercoagulable state Severe HypoAlbuminemia DM II Hypotension - Low BP, at presentation , resolved; Low again this morning, not requiring pressor support HTN- On antihypertensives @ home NSTEMI - possibly demand ischemia SIRS - likely sepsis from HCAP H/o bilateral Subclavian stenosis s/p left subclavian sent placement complicated by retroperitoneal hematoma s/p evacuation in 08/2015. COMMENT/RELEVANT DATA Meds Current Medications Medications (Trade) Dose Ordered Sig/Jodie Start Time Stop Time Status Last Admin Dose Admin Acetaminophen (Tylenol) 650 mg PRN Q6HRS PRN 04/24/21 14:00 Cancel Albumin Human 100 ml @ 100 mls/hr 1X ONCE 05/07/21 11:45 05/07/21 12:44 DC Amiodarone HCl (Cordarone) 200 mg DAILY 04/28/21 09:00 05/11/21 08:46 200 MG Amiodarone HCl 150 mg/Dextrose 103 ml @ 618 mls/hr 1X ONCE 04/27/21 02:30 04/27/21 02:39 DC 04/27/21 02:30 618 MLS/HR Amiodarone HCl 450 mg/Dextrose 259 ml @ 33 mls/hr CONT PRN 04/27/21 02:30 04/30/21 07:56 DC Amlodipine Besylate (Norvasc) 5 mg DAILY 05/10/21 10:00 05/11/21 08:46 5 MG Aspirin (Aspirin Chewable) 81 mg DAILYWBKFT 05/03/21 10:00 05/11/21 07:13 81 MG Aspirin (Ecotrin) 81 mg DAILYWBKFT 04/25/21 08:00 05/03/21 09:56 DC 05/02/21 07:20 81 MG Atorvastatin Calcium (Lipitor) 80 mg QHS 04/24/21 21:00 05/10/21 20:51 80 MG Bisacodyl (Dulcolax Supp) 10 mg PRN DAILY PRN 04/24/21 14:00 Carvedilol (Coreg) 3.125 mg BIDWMEALS 04/24/21 17:00 04/25/21 15:42 DC 04/25/21 09:23 3.125 MG Cefepime HCl (Maxipime) 1 gm Q24H 05/04/21 16:00 05/11/21 07:24 DC 05/10/21 16:31 1 GM Chlorhexidine Gluconate (Peridex) 15 ml BID 04/24/21 21:00 04/25/21 11:19 DC 04/24/21 20:49 15 ML Daptomycin 600 mg/ Sodium Chloride 50 ml @ 100 mls/hr Q48H 05/04/21 15:00 05/06/21 08:07 DC 05/04/21 15:24 100 MLS/HR Dexamethasone Sodium Phosphate (Decadron) 6 mg DAILY 04/25/21 17:00 05/07/21 09:18 DC 05/06/21 08:38 6 MG Dexmedetomidine HCl 400 mcg/ Sodium Chloride 100 ml @ 0 mls/hr CONT PRN 05/04/21 10:30 05/10/21 23:31 6.6 MLS/HR Dextrose (Dextrose 50%-Water Syringe) 12.5 gm PRN Q15MIN PRN 05/03/21 14:00 Digoxin (Lanoxin) 250 mcg 1X ONCE 04/26/21 13:00 04/26/21 13:05 DC 04/26/21 15:02 250 MCG Etomidate (Amidate) 20 mg STK-MED ONCE 04/24/21 13:38 04/24/21 13:38 DC Fentanyl Citrate 30 ml @ 0 mls/hr CONT PRN 04/24/21 14:00 05/11/21 07:13 3.75 MLS/HR Fentanyl Citrate (Fentanyl 2ml Vial) 25 mcg PRN Q1HR PRN 04/24/21 14:00 04/24/21 16:39 25 MCG Furosemide (Lasix) 40 mg Q8HRS 05/02/21 14:00 05/11/21 06:39 40 MG Heparin Sodium (Porcine) (Heparin Sodium) 5,000 unit Q8HRS 05/01/21 14:00 05/11/21 06:40 5,000 UNIT Heparin Sodium/ Dextrose 250 ml @ 0 mls/hr CONT PRN 04/24/21 16:45 05/01/21 12:32 DC 05/01/21 05:10 10 MLS/HR Hydralazine HCl (Apresoline Inj) 10 mg PRN Q4HRS PRN 04/25/21 14:45 05/10/21 13:42 10 MG Hydralazine HCl (Apresoline) 25 mg QID 05/10/21 10:00 05/11/21 08:46 25 MG Info (Anti-Coagulation Monitoring By Pharmacy) 1 each PRN DAILY PRN 04/25/21 13:00 05/02/21 07:36 DC 04/26/21 08:51 1 EACH Info (PHARMACY MONITORING -- do not chart) 1 each PRN DAILY PRN 05/07/21 08:45 Insulin Glargine (Lantus Syringe) 10 unit QHS 05/03/21 21:00 05/10/21 20:53 10 UNIT Insulin Human Lispro (HumaLOG) 0-5 UNITS Q6HRS 05/03/21 18:00 05/11/21 00:14 2 UNITS Labetalol HCl (Normodyne Iv Push) 20 mg PRN Q2HR PRN 05/01/21 12:30 05/06/21 17:19 20 MG Lidocaine HCl (Buffered Lidocaine 1%) 3 ml 1X ONCE 04/27/21 11:15 04/27/21 11:16 DC 04/27/21 11:15 3 ML Linezolid/Dextrose 300 ml @ 300 mls/hr Q12HR 05/11/21 09:00 Magnesium Sulfate 50 ml @ 25 mls/hr 1X ONCE 05/10/21 13:30 05/10/21 15:29 DC 05/10/21 14:36 25 MLS/HR Meropenem 500 mg/ Sodium Chloride 50 ml @ 100 mls/hr Q8HRS 05/11/21 14:00 Metoprolol Tartrate (Lopressor Vial) 5 mg Q6HRS 04/25/21 18:00 05/11/21 00:08 5 MG Midazolam HCl 100 ml @ 0 mls/hr CONT PRN 04/26/21 07:00 05/02/21 19:58 6 MLS/HR Montelukast Sodium (Singulair) 10 mg HS 04/24/21 21:00 05/10/21 20:51 10 MG Multi-Ingred Cream/Lotion/Oil/ Oint (Artificial Tears Eye Ointment) 1 danielito PRN Q1HR PRN 05/07/21 16:00 05/10/21 20:51 1 DANIELITO Nicardipine HCl 50 mg/Sodium Chloride 250 ml @ 25 mls/hr CONT PRN 05/06/21 18:45 05/08/21 21:30 25 MLS/HR Norepinephrine Bitartrate 8 mg/ Dextrose 258 ml @ 25.852 mls/ hr CONT PRN 05/02/21 21:00 05/09/21 06:10 DC 05/02/21 21:22 25.852 MLS/HR Ondansetron HCl (Zofran) 4 mg PRN Q6HRS PRN 04/24/21 14:00 Pantoprazole Sodium (PROTONIX VIAL for IV PUSH) 40 mg DAILYAC 04/26/21 09:30 05/11/21 07:11 40 MG Potassium Chloride/Water 100 ml @ 100 mls/hr Q1H 05/10/21 10:00 05/10/21 11:59 DC 05/10/21 10:56 100 MLS/HR Propofol 100 ml @ 0 mls/hr CONT PRN 04/24/21 15:30 05/11/21 07:12 31.4 MLS/HR Remdesivir 100 mg/ Sodium Chloride 230 ml @ 460 mls/hr Q24H 04/26/21 17:30 04/29/21 17:59 DC 04/29/21 13:51 460 MLS/HR Remdesivir 200 mg/ Sodium Chloride 210 ml @ 210 mls/hr 1X ONCE 04/25/21 17:30 04/25/21 18:29 DC 04/25/21 17:09 210 MLS/HR Sodium Bicarbonate (Sodium Bicarb Adult 8.4% Syr) 50 meq 1X ONCE 04/27/21 09:45 04/27/21 09:46 DC 04/27/21 09:50 50 MEQ Sodium Chloride 1,000 ml @ 400 mls/hr Q2H30M PRN 05/07/21 08:45 05/07/21 20:44 DC Sodium Chloride (Normal Saline Flush) 10 ml 1X PRN PRN 05/04/21 07:30 05/05/21 07:29 DC Succinylcholine Chloride (Anectine) 200 mg STK-MED ONCE 04/24/21 13:38 04/24/21 13:38 DC Vecuronium [place] (Norcuron Bolus) 6 mg PRN Q6HRS PRN 04/30/21 11:15 Lab Laboratory Tests Test 05/10/21 11:55 05/10/21 17:32 05/11/21 00:07 05/11/21 05:45 Glucose (Fingerstick) 177 mg/dL (70-99) 194 mg/dL (70-99) 152 mg/dL (70-99) 145 mg/dL (70-99) Test 05/11/21 06:30 05/11/21 07:52 White Blood Count 16.9 x10^3/uL (4.0-11.0) Red Blood Count 2.94 x10^6/uL (4.30-5.70) Hemoglobin 7.8 g/dL (13.0-17.5) Hematocrit 24.1 % (39.0-53.0) Mean Corpuscular Volume 82 fL (79-100) Mean Corpuscular Hemoglobin 27 pg (25-35) Mean Corpuscular Hemoglobin Concent 33 g/dL (31-37) Red Cell Distribution Width 15.8 % (11.5-14.5) Platelet Count 347 x10^3/uL (140-400) Neutrophils (%) (Auto) 81 % (31-73) Lymphocytes (%) (Auto) 9 % (24-48) Monocytes (%) (Auto) 8 % (0-9) Eosinophils (%) (Auto) 1 % (0-3) Basophils (%) (Auto) 0 % (0-3) Neutrophils # (Auto) 13.7 x10^3/uL (1.8-7.7) Lymphocytes # (Auto) 1.5 x10^3/uL (1.0-4.8) Monocytes # (Auto) 1.4 x10^3/uL (0.0-1.1) Eosinophils # (Auto) 0.2 x10^3/uL (0.0-0.7) Basophils # (Auto) 0.1 x10^3/uL (0.0-0.2) Sodium Level 130 mmol/L (136-145) Potassium Level 3.3 mmol/L (3.5-5.1) Chloride Level 95 mmol/L (98-107) Carbon Dioxide Level 22 mmol/L (21-32) Anion Gap 13 (6-14) Blood Urea Nitrogen 51 mg/dL (8-26) Creatinine 3.0 mg/dL (0.7-1.3) Estimated GFR (Cockcroft-Gault) 24.9 Glucose Level 145 mg/dL (70-99) Calcium Level 8.4 mg/dL (8.5-10.1) O2 Saturation 79 % (92-99) Arterial Blood pH 7.39 (7.35-7.45) Arterial Blood pCO2 at Patient Temp 36 mmHg (35-46) Arterial Blood pO2 at Patient Temp 46 mmHg (65-108) Arterial Blood HCO3 21 mmol/L (21-28) Arterial Blood Base Excess -3 mmol/L (-3-3) FiO2 40 Results All relevant outside records, renal labs, imaging studies, telemetry/EKG's were reviewed. Justicifation of Admission Dx: Justifications for Admission: Justification of Admission Dx: Yes Aspiration Pneumonia: Hemodynamic Instability JASMEET LAM MD May 11, 2021 09:18
[2021-05-11 09:20] LABS: BASE EXCESS ABG -4 mmol/L (-3-3); HCO3 ABG 21 mmol/L (21-28); PCO2 ABG 35 mmHg (35-46); PO2 ABG 64 mmHg (65-108); SAT O2 ABG 91 % (92-99)
[2021-05-11 09:21] LABS: FIO2 ABG 40
--- NOTE | 2021-05-11 09:40 | PDOC ---
PROGRESS NOTES Date of Service: DATE: 05/11/21 TIME: 09:40 Chief Complaint Chief Complaint Respiratory failure requiring intubation COVID-19 Acute MD A. fib SIRS Hypertension with hypertensive urgency Hyperlipidemia CKD Diabetes History of bilateral subclavian stenosis History of marijuana use Severe protein calorie malnutrition History of Present Illness History of Present Illness 05/11/2021 Continue iv cefepime , add zyvox, sputum culture VENT [id number]%, 5 of PEEP Mild pulmonary edema with new small right pleural effusion and basilar opacities now on cardene gtt prn Patient seen and examined in the [facility] [address] ICU remains mechanically ventilated ILDA on CKD - ATN 2/2 sepsis/ Hypotension,UOP good,on IV Lasix ; requiring dialysis, Sedated with propofol Dex and fentanyl Chart reviewed Discussed with RN He remains critically ill intubated/sedated cont cardene gtt not able to tolerate PS trial 05/06/21 Change central line and send cath tip for cultures. 05-09 C. difficile PCR JONES FISHMAN MD,ADELSO DASILVA MD, MD ORDERED: BCULT Procedure Result BLOOD CULTURE Preliminary NO GROWTH AFTER 2 DAYS BLOOD CULTURE Preliminary NO GROWTH AFTER 4 DAYS 36 min cc time 05/10/2021 VENT [id number]%, 5 of PEEP Mild pulmonary edema with new small right pleural effusion and basilar opacities now on cardene gtt prn Patient seen and examined in the [facility] [address] ICU remains mechanically ventilated ILDA on CKD - ATN 2/2 sepsis/ Hypotension,UOP good,on IV Lasix ; requiring dialysis, Sedated with propofol Dex and fentanyl Chart reviewed Discussed with RN He remains critically ill intubated/sedated cont cardene gtt not able to tolerate PS trial 05/06/21 Change central line and send cath tip for cultures. 05-09 C. difficile PCR JONES FISHMAN MD,ADELSO DASILVA MD, MD ORDERED: BCULT Procedure Result BLOOD CULTURE Preliminary NO GROWTH AFTER 2 DAYS - BLOOD CULTURE Preliminary NO GROWTH AFTER 4 DAYS 33 min cc time 05/09/2021 VENT [id number]%, 5 of PEEP Mild pulmonary edema with new small right pleural effusion and basilar opacities now on cardene gtt prn Patient seen and examined in the [facility] ICU remains mechanically ventilated ILDA on CKD - ATN 2/2 sepsis/ Hypotension,UOP good,on IV Lasix ; requiring dialysis, Sedated with propofol Dex and fentanyl Chart reviewed Discussed with RN He remains critically ill intubated/sedated cont cardene gtt not able to tolerate PS trial 05/06/21 Change central line and send cath tip for cultures. 05-09 C. difficile PCR JONES FISHMAN MD,ADELSO DASILVA MD, MD ORDERED: BCULT Procedure Result BLOOD CULTURE Preliminary NO GROWTH AFTER 2 DAYS BLOOD CULTURE Preliminary NO GROWTH AFTER 4 DAYS 37 min cc time 05/08/2021 Currently on 40%, 5 of PEEP now on cardene gtt Patient seen and examined in the [facility] ICU remains mechanically ventilated ILDA on CKD - ATN 2/2 sepsis/ Hypotension,UOP good,on IV Lasix ; requiring dialysis, AC/20/500/40 percent with 5 of PEEP Sedated with propofol Dex and fentanyl Chart reviewed Discussed with RN He remains critically ill intubated/sedated cont cardene gtt not able to tolerate PS trial 05/06/21 JONES FISHMAN MD, CHRISTOPHER S MD SISILLO, SABATO MD ORDERED: BCULT Procedure Result -- BLOOD CULTURE Preliminary NO GROWTH AFTER 2 DAYS BLOOD CULTURE Preliminary NO GROWTH AFTER 4 DAYS 33 min cc time 05/07/2021 Patient seen and examined in the [facility] [address] ICU He remains mechanically ventilated ILDA on CKD - ATN 2/2 sepsis/ Hypotension,UOP good,on IV Lasix ; requiring dialysis, AC/20/500/40 percent with 5 of PEEP Sedated with propofol Dex and fentanyl Chart reviewed Discussed with RN He remains critically ill intubated/sedated cont cardene gtt not able to tolerate PS trial 05/06/21 JONES FISHMAN MD,ADELSO DASILVA MD, MD ORDERED: BCULT -------- ---- Procedure Result BLOOD CULTURE Preliminary NO GROWTH AFTER 2 DAYS 36 min cc time 05/06/2021 Patient seen and examined in the [facility] [address] ICU He remains mechanically ventilated AC/20/500/40 percent with 5 of PEEP Sedated with propofol Dex and fentanyl Chart reviewed Discussed with RN He remains critically ill 05/05/2020 Patient seen and examined in the [facility] [address] ICU He remains on the vent AC/20/500/40 percent with 5 of PEEP Discussed with RN Chart reviewed Has SCDs in place Nieves to bedside drainage He remains critically ill 05/04/2021 Patient seen and examined in the [facility] [address] ICU Still intubated Sedated with propofol and fentanyl AC/20/500/70 percent with 5 of PEEP On dialysis currently Has SCDs in Nieves to bedside drainage Discussed with RN Chart reviewed 05/03/2021 Patient seen and examined in the [facility] [address] ICU He is still intubated AC/20/500/70 percent with 5 of PEEP Has SCDs in place Nieves to bedside drainage Sedated with fentanyl Versed and propofol Discussed are Chart reviewed Remains critically ill 05/02/2021 Patient seen and examined in the [facility] [address] ICU He is sedated with propofol fentanyl and Versed Ventilator settings as follow AC/20/500/40 percent with 5 of PEEP Has Nieves to bedside drainage Chart reviewed Discussed with RN He remains critically ill 05/01/2021 Patient seen and examined in the [facility] [address] ICU He is still intubated AC/20/500/40 percent with 5 of PEEP In A. fib Sedated with propofol fentanyl and Versed Has a heparin drip Missy with RN Chart reviewed He remains critically 04/30/2020 Patient seen and examined in the [facility] [address] ICU He remains on the vent AC/20/500/40 5% with 5 PEEP Currently on dialysis Has OG feeds running Has a Nieves to bedside drainage Sedated with propofol and fentanyl Reviewed chart Discussed with RN He remains critically ill Mr Lan is a 75 yo male w/ PMHx CAD, HTN, Hyperlipidemia, subclavian steel syndrome, subclavian stenosis s/p left subclavian sent placement complicated by retroperitoneal hematoma s/p evacuation in 08/2015), asthma, BART, CKD, DM2 who presented from home with home health care noted that he was short of breath and valverde with O2 saturations less than 89% as low as 84% not improved with nasal cannulated oxygen placed on CPAP and brought to ED for further care. He was just discharged from the hospital a week ago on April 19, 2021 for abdominal pain and was going for further cardiac testing with outpatient stress testing scheduled on May 28, 2021. Had echocardiogram April 17, 2021 with normal-appearing EF with moderate conc entric LVH no significant valvular abnormalities. WBC 20, Hb 10.7, platelets 268, NA 140, K3.8, BUN 21, CR 2.9, glucose 162, alb umin 3, troponin I 1.372, NT proBNP 33,318. EKG appears sinus tachycardia rate of 105 bpm with multiple PACs small ST depressions in lead II and V5. TWI in V6. Chest radiograph with diffuse interstitial and alveolar opacities and ET tube 5.8 cm above the leilani. Due to worsening respiratory status ED physician elected to intubate patient. Seen postintubation. Blood pressure little low after propofol bolus, but improved. Significant white frothy sputum per ET tube. Admitted to ICU for further care 04/29/2021: Afebrile, remains on vent at FiO2 45%, PEEP 5. WBC 20.4. Hemodialysis per nephrology. We will continue treatment with empiric antibiotics, remdesivir, and steroids. Continue heparin infusion and supportive care. Critical care time 30 minutes reviewing chart, review labs, review imaging, discussion with RN. 04/28/2021: Afebrile. FiO2 50%, PEEP 5. Nontunneled HD catheter placed yesterday due to worsening kidney function; eGFR 16 (CKD4). Chest x-ray showed unchanged interstitial opacities. Continue empiric antibiotics, steroids, and remdesivir. Continue heparin infusion, and continue to follow cardiology recommendations on new diagnosis of A. fib. Critical care time 30 minutes reviewing chart, review labs, review imaging, discussion with RN. 04/27/2021: Afebrile. On vent with FiO2 50%, PEEP 5. Troponin 2.8 yesterday; probable type II, demand ischemia. New onset A. fib. Continue heparin drip and as needed digoxin, per cardiology. Continue treatment with remdesivir, steroids, and prophylactic antibiotics. CBG 323 this morning; will add basal insulin. Critical care 30 minutes spent reviewing labs, reviewing imaging, re viewing charts, and discussion with RN. 04/26/2021: COVID-19 positive. Febrile overnight that was managed with cooling blankets. On vent with FiO2 50%, PEEP 5. Per cardiology, elevated troponins likely secondary to demand ischemia; continue heparin drip per cardiology. Maintain fluid balance and avoid nephrotoxins. Continue treatment with remdesivir, steroids, and prophylactic antibiotics. 30 minutes critical care time spent reviewing charts, reviewing labs, reviewing imaging, and discussion with RN. 04/25/2021: On vent FiO2 50, PEEP 5. Febrile, T-max 103.3. Patient was initiated on cooling blankets. Procalcitonin 0.13. Continue coverage for hospital-acquired pneumonia with cefepime. MRSA PCR pending. Critical care time 30 minutes spent reviewing charts, reviewing labs, review of imaging, discussion with RN. Vitals Vitals Vital Signs Date Time Temp Pulse Resp B/P (MAP) Pulse Ox O2 Delivery O2 Flow Rate FiO2 05/11/21 09:21 99 Ventilator 05/11/21 09:00 92 24 170/91 (117) 05/11/21 08:00 98.5 98.5 Physical Exam Physical Exam GENERAL: Well-developed and well-nourished male, intubated, sedated. HEENT: Normocephalic, atraumatic, and anicteric. ETT and OGT present. NECK: Right IJ removed, right dialysis catheter present clean HEART: S1, S2. LUNGS: Decreased breath sounds. ABDOMEN: Soft, obese, bowel sounds present. GENITOURINARY: Nieves in place. EXTREMITIES: Edema present. DERMATOLOGIC: Warm, dry, no generalized rash. NEUROLOGIC: Intubated. PSYCHIATRIC: Unable to obtain. General: Other (sedated ) Heart: Regular rate, Normal S1, Normal S2 Abdomen: Other (ND) Extremities: No clubbing, No cyanosis Skin: No rashes, No breakdown, No significant lesion Labs LABS PATIENT: NILAM LAN ACCOUNT: [id number] : 1945 LOCATION: [address] [place] [address] AGE: 75 SEX: M EXAM STATUS: ADM IN ORD. PHYSICIAN: KIM STARKS MD REASON: s/p central line placemet PROCEDURE: CHEST AP ONLY EXAM: Chest, single view. HISTORY: Central line placement. COMPARISON: 05/10/2021 FINDINGS: A frontal view of the chest is obtained. There is an endotracheal tube within the mid trachea. There is a nasogastric tube within the stomach. There are right internal jugular catheters with the tips in the superior cavoatrial junction. There is no pneumothorax. There is stable diffuse left greater than right lower lobe predominant infiltrate and small left greater than right pleural effusions. There is a stable cardiac silhouette. IMPRESSION: 1. Interval right internal jugular central venous catheter placement. The tip is in the superior cavoatrial junction. There is no pneumothorax. The remainder of the support lines and tubes are unchanged. 2. Stable diffuse left lower lobe predominant infiltrate and small pleural effusions. Electronically signed by: Cynthia Shea MD (05/11/2021 10:00 AM) [id number] DICTATED and SIGNED BY: CYNTHIA SHEA MD DATE: 05/11/21 [id number] Laboratory Tests Test 05/10/21 11:55 05/10/21 17:32 05/11/21 00:07 05/11/21 05:45 Glucose (Fingerstick) 177 mg/dL (70-99) 194 mg/dL (70-99) 152 mg/dL (70-99) 145 mg/dL (70-99) Test 05/11/21 06:30 05/11/21 07:52 05/11/21 09:20 White Blood Count 16.9 x10^3/uL (4.0-11.0) Red Blood Count 2.94 x10^6/uL (4.30-5.70) Hemoglobin 7.8 g/dL (13.0-17.5) Hematocrit 24.1 % (39.0-53.0) Mean Corpuscular Volume 82 fL (79-100) Mean Corpuscular Hemoglobin 27 pg (25-35) Mean Corpuscular Hemoglobin Concent 33 g/dL (31-37) Red Cell Distribution Width 15.8 % (11.5-14.5) Platelet Count 347 x10^3/uL (140-400) Neutrophils (%) (Auto) 81 % (31-73) Lymphocytes (%) (Auto) 9 % (24-48) Monocytes (%) (Auto) 8 % (0-9) Eosinophils (%) (Auto) 1 % (0-3) Basophils (%) (Auto) 0 % (0-3) Neutrophils # (Auto) 13.7 x10^3/uL (1.8-7.7) Lymphocytes # (Auto) 1.5 x10^3/uL (1.0-4.8) Monocytes # (Auto) 1.4 x10^3/uL (0.0-1.1) Eosinophils # (Auto) 0.2 x10^3/uL (0.0-0.7) Basophils # (Auto) 0.1 x10^3/uL (0.0-0.2) Sodium Level 130 mmol/L (136-145) Potassium Level 3.3 mmol/L (3.5-5.1) Chloride Level 95 mmol/L (98-107) Carbon Dioxide Level 22 mmol/L (21-32) Anion Gap 13 (6-14) Blood Urea Nitrogen 51 mg/dL (8-26) Creatinine 3.0 mg/dL (0.7-1.3) Estimated GFR (Cockcroft-Gault) 24.9 Glucose Level 145 mg/dL (70-99) Calcium Level 8.4 mg/dL (8.5-10.1) O2 Saturation 79 % (92-99) 91 % (92-99) Arterial Blood pH 7.39 (7.35-7.45) 7.40 (7.35-7.45) Arterial Blood pCO2 at Patient Temp 36 mmHg (35-46) 35 mmHg (35-46) Arterial Blood pO2 at Patient Temp 46 mmHg (65-108) 64 mmHg (65-108) Arterial Blood HCO3 21 mmol/L (21-28) 21 mmol/L (21-28) Arterial Blood Base Excess -3 mmol/L (-3-3) -4 mmol/L (-3-3) FiO2 40 40 Assessment and Plan Assessmemt and Plan Problems Medical Problems: (1) Elevated troponin Status: Acute (2) Person under investigation for COVID-19 Status: Acute (3) Pulmonary edema Status: Acute Comment Review of Relevant I have reviewed the following items juanita (where applicable) has been applied. Labs Laboratory Tests Test 05/09/21 13:45 05/09/21 17:26 05/10/21 00:50 05/10/21 06:25 Glucose (Fingerstick) 183 mg/dL (70-99) 163 mg/dL (70-99) 164 mg/dL (70-99) 141 mg/dL (70-99) White Blood Count 15.3 x10^3/uL (4.0-11.0) Red Blood Count 2.81 x10^6/uL (4.30-5.70) Hemoglobin 7.5 g/dL (13.0-17.5) Hematocrit 22.9 % (39.0-53.0) Mean Corpuscular Volume 82 fL (79-100) Mean Corpuscular Hemoglobin 27 pg (25-35) Mean Corpuscular Hemoglobin Concent 33 g/dL (31-37) Red Cell Distribution Width 15.6 % (11.5-14.5) Platelet Count 288 x10^3/uL (140-400) Neutrophils (%) (Auto) 81 % (31-73) Lymphocytes (%) (Auto) 10 % (24-48) Monocytes (%) (Auto) 8 % (0-9) Eosinophils (%) (Auto) 1 % (0-3) Basophils (%) (Auto) 0 % (0-3) Neutrophils # (Auto) 12.4 x10^3/uL (1.8-7.7) Lymphocytes # (Auto) 1.5 x10^3/uL (1.0-4.8) Monocytes # (Auto) 1.2 x10^3/uL (0.0-1.1) Eosinophils # (Auto) 0.2 x10^3/uL (0.0-0.7) Basophils # (Auto) 0.0 x10^3/uL (0.0-0.2) Sodium Level 132 mmol/L (136-145) Potassium Level 2.6 mmol/L (3.5-5.1) Chloride Level 99 mmol/L (98-107) Carbon Dioxide Level 21 mmol/L (21-32) Anion Gap 12 (6-14) Blood Urea Nitrogen 47 mg/dL (8-26) Creatinine 2.7 mg/dL (0.7-1.3) Estimated GFR (Cockcroft-Gault) 28.1 BUN/Creatinine Ratio 17 (6-20) Glucose Level 164 mg/dL (70-99) Calcium Level 7.8 mg/dL (8.5-10.1) Magnesium Level 1.7 mg/dL (1.8-2.4) Total Bilirubin 0.4 mg/dL (0.2-1.0) Aspartate Amino Transf (AST/SGOT) 38 U/L (15-37) Alanine Aminotransferase (ALT/SGPT) 32 U/L (16-63) Alkaline Phosphatase 58 U/L (46-116) Total Protein 5.1 g/dL (6.4-8.2) Albumin 1.4 g/dL (3.4-5.0) Albumin/Globulin Ratio 0.4 (1.0-1.7) Test 05/10/21 08:00 05/10/21 11:55 05/10/21 17:32 05/11/21 00:07 O2 Saturation 95 % (92-99) Arterial Blood pH 7.42 (7.35-7.45) Arterial Blood pCO2 at Patient Temp 34 mmHg (35-46) Arterial Blood pO2 at Patient Temp 78 mmHg (65-108) Arterial Blood HCO3 22 mmol/L (21-28) Arterial Blood Base Excess -3 mmol/L (-3-3) FiO2 40%+5 Glucose (Fingerstick) 177 mg/dL (70-99) 194 mg/dL (70-99) 152 mg/dL (70-99) Test 05/11/21 05:45 05/11/21 06:30 05/11/21 07:52 05/11/21 09:20 Glucose (Fingerstick) 145 mg/dL (70-99) White Blood Count 16.9 x10^3/uL (4.0-11.0) Red Blood Count 2.94 x10^6/uL (4.30-5.70) Hemoglobin 7.8 g/dL (13.0-17.5) Hematocrit 24.1 % (39.0-53.0) Mean Corpuscular Volume 82 fL (79-100) Mean Corpuscular Hemoglobin 27 pg (25-35) Mean Corpuscular Hemoglobin Concent 33 g/dL (31-37) Red Cell Distribution Width 15.8 % (11.5-14.5) Platelet Count 347 x10^3/uL (140-400) Neutrophils (%) (Auto) 81 % (31-73) Lymphocytes (%) (Auto) 9 % (24-48) Monocytes (%) (Auto) 8 % (0-9) Eosinophils (%) (Auto) 1 % (0-3) Basophils (%) (Auto) 0 % (0-3) Neutrophils # (Auto) 13.7 x10^3/uL (1.8-7.7) Lymphocytes # (Auto) 1.5 x10^3/uL (1.0-4.8) Monocytes # (Auto) 1.4 x10^3/uL (0.0-1.1) Eosinophils # (Auto) 0.2 x10^3/uL (0.0-0.7) Basophils # (Auto) 0.1 x10^3/uL (0.0-0.2) Sodium Level 130 mmol/L (136-145) Potassium Level 3.3 mmol/L (3.5-5.1) Chloride Level 95 mmol/L (98-107) Carbon Dioxide Level 22 mmol/L (21-32) Anion Gap 13 (6-14) Blood Urea Nitrogen 51 mg/dL (8-26) Creatinine 3.0 mg/dL (0.7-1.3) Estimated GFR (Cockcroft-Gault) 24.9 Glucose Level 145 mg/dL (70-99) Calcium Level 8.4 mg/dL (8.5-10.1) O2 Saturation 79 % (92-99) 91 % (92-99) Arterial Blood pH 7.39 (7.35-7.45) 7.40 (7.35-7.45) Arterial Blood pCO2 at Patient Temp 36 mmHg (35-46) 35 mmHg (35-46) Arterial Blood pO2 at Patient Temp 46 mmHg (65-108) 64 mmHg (65-108) Arterial Blood HCO3 21 mmol/L (21-28) 21 mmol/L (21-28) Arterial Blood Base Excess -3 mmol/L (-3-3) -4 mmol/L (-3-3) FiO2 40 40 Laboratory Tests Test 05/10/21 11:55 05/10/21 17:32 05/11/21 00:07 05/11/21 05:45 Glucose (Fingerstick) 177 mg/dL (70-99) 194 mg/dL (70-99) 152 mg/dL (70-99) 145 mg/dL (70-99) Test 05/11/21 06:30 05/11/21 07:52 05/11/21 09:20 White Blood Count 16.9 x10^3/uL (4.0-11.0) Red Blood Count 2.94 x10^6/uL (4.30-5.70) Hemoglobin 7.8 g/dL (13.0-17.5) Hematocrit 24.1 % (39.0-53.0) Mean Corpuscular Volume 82 fL (79-100) Mean Corpuscular Hemoglobin 27 pg (25-35) Mean Corpuscular Hemoglobin Concent 33 g/dL (31-37) Red Cell Distribution Width 15.8 % (11.5-14.5) Platelet Count 347 x10^3/uL (140-400) Neutrophils (%) (Auto) 81 % (31-73) Lymphocytes (%) (Auto) 9 % (24-48) Monocytes (%) (Auto) 8 % (0-9) Eosinophils (%) (Auto) 1 % (0-3) Basophils (%) (Auto) 0 % (0-3) Neutrophils # (Auto) 13.7 x10^3/uL (1.8-7.7) Lymphocytes # (Auto) 1.5 x10^3/uL (1.0-4.8) Monocytes # (Auto) 1.4 x10^3/uL (0.0-1.1) Eosinophils # (Auto) 0.2 x10^3/uL (0.0-0.7) Basophils # (Auto) 0.1 x10^3/uL (0.0-0.2) Sodium Level 130 mmol/L (136-145) Potassium Level 3.3 mmol/L (3.5-5.1) Chloride Level 95 mmol/L (98-107) Carbon Dioxide Level 22 mmol/L (21-32) Anion Gap 13 (6-14) Blood Urea Nitrogen 51 mg/dL (8-26) Creatinine 3.0 mg/dL (0.7-1.3) Estimated GFR (Cockcroft-Gault) 24.9 Glucose Level 145 mg/dL (70-99) Calcium Level 8.4 mg/dL (8.5-10.1) O2 Saturation 79 % (92-99) 91 % (92-99) Arterial Blood pH 7.39 (7.35-7.45) 7.40 (7.35-7.45) Arterial Blood pCO2 at Patient Temp 36 mmHg (35-46) 35 mmHg (35-46) Arterial Blood pO2 at Patient Temp 46 mmHg (65-108) 64 mmHg (65-108) Arterial Blood HCO3 21 mmol/L (21-28) 21 mmol/L (21-28) Arterial Blood Base Excess -3 mmol/L (-3-3) -4 mmol/L (-3-3) FiO2 40 40 Microbiology 05/04/21 Gram Stain Evaluation - Final, Complete 05/04/21 Respiratory Culture - Final, Complete 05/04/21 Gram Stain - Final, Complete 05/04/21 Aerobic Culture - Final, Complete 05/04/21 Blood Culture - Final, Complete NO GROWTH AFTER 5 DAYS Medications Current Medications Propofol 100 ml @ As Directed STK-MED ONCE IV ; Start 04/24/21 at 12:36; Stop 04/24/21 at 12:36; Status DC Etomidate (Amidate) 20 mg STK-MED ONCE IV ; Start 04/24/21 at 13:38; Stop 04/24/21 at 13:38; Status DC Succinylcholine Chloride (Anectine) 200 mg STK-MED ONCE .ROUTE ; Start 04/24/21 at 13:38; Stop 04/24/21 at 13:38; Status DC Fentanyl Citrate (Fentanyl 2ml Vial) 50 mcg PRN Q1HR PRN IV PAIN; Start 04/24/21 at 14:00; Stop 04/24/21 at 14:14; Status DC Acetaminophen (Tylenol) 650 mg PRN Q6HRS PRN PO Headaches, Temp > 101.5' Last administered on 04/25/21at 17:31; Start 04/24/21 at 14:00 Ondansetron HCl (Zofran) 4 mg PRN Q6HRS PRN IVP NAUSEA/VOMITING; Start 04/24/21 at 14:00; Status Cancel Sodium Chloride (Normal Saline Flush) 3 ml QSHIFT PRN IV AFTER MEDS AND BLOOD DRAWS; Start 04/24/21 at 14:00 Fentanyl Citrate (Fentanyl 2ml Vial) 25 mcg PRN Q1HR PRN IV SEVERE PAIN 7-10; Start 04/24/21 at 14:00; Stop 04/24/21 at 14:14; Status DC Bisacodyl (Dulcolax Supp) 10 mg PRN DAILY PRN AL CONSTIPATION; Start 04/24/21 a t 14:00 Fentanyl Citrate 30 ml @ 0 mls/hr CONT PRN IV SEE PROTOCOL; Start 04/24/21 at 14:00; Stop 04/24/21 at 14:12; Status DC Propofol 100 ml @ 0 mls/hr CONT PRN IV PER PROTOCOL Last administered on 04/24/21at 15:12; Start 04/24/21 at 14:00; Stop 04/24/21 at 15:19; Status DC Chlorhexidine Gluconate (Peridex) 15 ml BID MM Last administered on 04/24/21at 20:49; Start 04/24/21 at 21:00; Stop 04/25/21 at 11:19; Status DC Acetaminophen (Tylenol) 650 mg PRN Q6HRS PRN PO Headaches, Temp > 101.5'; Start 04/24/21 at 14:00; Status Cancel Ondansetron HCl (Zofran) 4 mg PRN Q6HRS PRN IVP NAUSEA/VOMITING; Start 04/24/21 at 14:00 Fentanyl Citrate (Fentanyl 2ml Vial) 25 mcg PRN Q1HR PRN IV SEVERE PAIN 7-10 Last administered on 04/24/21at 16:39; Start 04/24/21 at 14:00 Fentanyl Citrate 30 ml @ 0 mls/hr CONT PRN IV SEE PROTOCOL Last administered on 05/11/21 07:13; Start 04/24/21 at 14:00 Aspirin (Ecotrin) 81 mg DAILYWBKFT PO Last administered on 05/02/21 07:20; Start 04/25/21 at 08:00; Stop 05/03/21 at 09:56; Status DC Carvedilol (Coreg) 37.5 mg BIDWMEALS PO ; Start 04/24/21 at 17:00; Stop 04/24/21 at 16:17; Status DC Montelukast Sodium (Singulair) 10 mg HS PO Last administered on 05/10/21 20:51; Start 04/24/21 at 21:00 Atorvastatin Calcium (Lipitor) 80 mg QHS PO Last administered on 05/10/21 20:51; Start 04/24/21 at 21:00 Heparin Sodium (Porcine) (Heparin Sodium) 5,000 unit Q8HRS SQ ; Start 04/24/21 at 22:00; Status Cancel Furosemide (Lasix) 40 mg 1X ONCE IVP Last administered on 04/24/21at 16:45; Start 04/24/21 at 15:15; Stop 04/24/21 at 15:19; Status DC Propofol 100 ml @ 0 mls/hr CONT PRN IV PER PROTOCOL Last administered on 05/11/21 07:12; Start 04/24/21 at 15:30 Carvedilol (Coreg) 3.125 mg BIDWMEALS PO Last administered on 04/25/21 09:23; Start 04/24/21 at 17:00; Stop 04/25/21 at 15:42; Status DC Cefepime HCl (Maxipime) 2 gm 1X ONCE IVP Last administered on 04/24/21at 18:27; Start 04/24/21 at 16:30; Stop 04/24/21 at 16:31; Status DC Insulin Human Lispro (HumaLOG) 0-9 UNITS Q6HRS SQ Last administered on 05/03/21at 12:24; Start 04/24/21 at 18:00; Stop 05/03/21 at 13:51; Status DC Dextrose (Dextrose 50%-Water Syringe) 12.5 gm PRN Q15MIN PRN IV SEE COMMENTS Last administered on 05/03/21at 04:59; Start 04/24/21 at 16:30; Stop 05/03/21 at 13:54; Status DC Heparin Sodium/ Dextrose 250 ml @ 0 mls/hr CONT PRN IV PER PROTOCOL Last administered on 05/01/21at 05:10; Start 04/24/21 at 16:45; Stop 05/01/21 at 12:32; Status DC Heparin Sodium (Porcine) (Heparin Sodium) 3,200 unit PRN Q6HRS PRN IV FOR UFH LEVEL LESS THAN 0.2 Last administered on 04/24/21at 23:32; Start 04/24/21 at 16:45; Stop 05/01/21 at 12:32; Status DC Cefepime HCl (Maxipime) 1 gm Q12HR IVP Last administered on 04/27/21at 08:09; Start 04/25/21 at 09:00; Stop 04/27/21 at 09:17; Status DC Furosemide (Lasix) 40 mg 1X ONCE IVP ; Start 04/25/21 at 11:30; Stop 04/25/21 at 11:31; Status DC Metoprolol Tartrate (Lopressor Vial) 5 mg 1X ONCE IVP Last administered on 04/25/21at 11:27; Start 04/25/21 at 11:30; Stop 04/25/21 at 11:31; Status DC Info (Anti-Coagulation Monitoring By Pharmacy) 1 each PRN DAILY PRN MC PER PROTOCOL Last administered on 04/26/21at 08:51; Start 04/25/21 at 13:00; Stop 05/02/21 at 07:36; Status DC Digoxin (Lanoxin) 500 mcg 1X ONCE IV Last administered on 04/25/21at 14:52; Start 04/25/21 at 14:45; Stop 04/25/21 at 14:46; Status DC Hydralazine HCl (Apresoline Inj) 10 mg PRN Q4HRS PRN IVP ELEVATED BP, 1ST CH OICE Last administered on 05/10/21at 13:42; Start 04/25/21 at 14:45 Metoprolol Tartrate (Lopressor Vial) 5 mg Q6HRS IVP Last administered on 05/11/21at 00:08; Start 04/25/21 at 18:00 Dexamethasone Sodium Phosphate (Decadron) 6 mg DAILY IVP Last administered on 05/06/21at 08:38; Start 04/25/21 at 17:00; Stop 05/07/21 at 09:18; Status DC Remdesivir 200 mg/ Sodium Chloride 210 ml @ 210 mls/hr 1X ONCE IV Last administered on 04/25/21at 17:09; Start 04/25/21 at 17:30; Stop 04/25/21 at 18:29; Status DC Remdesivir 100 mg/ Sodium Chloride 230 ml @ 460 mls/hr Q24H IV Last administered on 04/29/21at 13:51; Start 04/26/21 at 17:30; Stop 04/29/21 at 17:59; Status DC Midazolam HCl 100 ml @ 0 mls/hr CONT PRN IV SEE PROTOCOL Last administered on 05/02/21at 19:58; Start 04/26/21 at 07:00 Pantoprazole Sodium (PROTONIX VIAL for IV PUSH) 40 mg DAILYAC IVP Last administered on 05/11/21at 07:11; Start 04/26/21 at 09:30 Norepinephrine Bitartrate 8 mg/ Dextrose 258 ml @ 25.349 mls/ hr CONT PRN IV PER PROTOCOL Last administered on 04/26/21at 17:53; Start 04/26/21 at 12:15; Stop 05/02/21 at 20:53; Status DC Digoxin (Lanoxin) 250 mcg 1X ONCE IV Last administered on 04/26/21at 15:02; Start 04/26/21 at 13:00; Stop 04/26/21 at 13:05; Status DC Amiodarone HCl 150 mg/Dextrose 103 ml @ 618 mls/hr 1X ONCE IV Last administered on 04/27/21at 02:30; Start 04/27/21 at 02:30; Stop 04/27/21 at 02:39; Status DC Amiodarone HCl 450 mg/Dextrose 259 ml @ 33 mls/hr CONT PRN IV SEE I/O RECORD; Start 04/27/21 at 02:30; Stop 04/30/21 at 07:56; Status DC Insulin Glargine (Lantus Syringe) 25 unit QHS SQ Last administered on 05/02/21at 21:23; Start 04/27/21 at 21:00; Stop 05/03/21 at 13:45; Status DC Cefepime HCl (Maxipime) 1 gm Q24H IVP Last administered on 05/03/21at 10:02; Start 04/28/21 at 09:30; Stop 05/03/21 at 13:19; Status DC Sodium Bicarbonate (Sodium Bicarb Adult 8.4% Syr) 50 meq 1X ONCE IV Last administered on 04/27/21at 09:50; Start 04/27/21 at 09:45; Stop 04/27/21 at 09:46; Status DC Lidocaine HCl (Buffered Lidocaine 1%) 3 ml STK-MED ONCE .ROUTE ; Start 04/27/21 at 10:57; Stop 04/27/21 at 10:58; Status DC Amiodarone HCl (Cordarone) 200 mg DAILY PO ; Start 04/27/21 at 12:00; Stop 04/27/21 at 12:29; Status DC Lidocaine HCl (Buffered Lidocaine 1%) 3 ml 1X ONCE INJ Last administered on at 11:15; Start 04/27/21 at 11:15; Stop 04/27/21 at 11:16; Status DC Amiodarone HCl (Cordarone) 200 mg DAILY PO Last administered on 05/11/21at 08:46; Start 04/28/21 at 09:00 Sodium Chloride 1,000 ml @ 1,000 mls/hr Q1H PRN IV hypotension; Start 04/28/21 at 11:00; Stop 04/28/21 at 16:59; Status DC Albumin Human 200 ml @ 200 mls/hr 1X PRN PRN IV Hypotension; Start 04/28/21 at 11:00; Stop 04/28/21 at 16:59; Status DC Sodium Chloride (Normal Saline Flush) 10 ml 1X PRN PRN IV AP catheter pack; Start 04/28/21 at 11:00; Stop 04/29/21 at 10:59; Status DC Sodium Chloride (Normal Saline Flush) 10 ml 1X PRN PRN IV EXHAUST AND MUFFLER FITTER catheter pack; Start 04/28/21 at 11:00; Stop 04/29/21 at 10:59; Status DC Sodium Chloride 1,000 ml @ 400 mls/hr Q2H30M PRN IV PATENCY; Start 04/28/21 at 11:00; Stop 04/28/21 at 22:59; Status DC Info (PHARMACY MONITORING -- do not chart) 1 each PRN DAILY PRN MC SEE COMMENTS; Start 04/28/21 at 11:00; Status UNV Info (PHARMACY MONITORING -- do not chart) 1 each PRN DAILY PRN MC SEE COMMENTS ; Start 04/28/21 at 11:00; Stop 04/30/21 at 22:39; Status DC Magnesium Sulfate 50 ml @ 25 mls/hr PRN DAILY PRN IV for Mag < 1.7 on am labs; Start 04/29/21 at 10:45 Vecuronium Henderson (Norcuron Bolus) 6 mg PRN Q6HRS PRN IV VENTILATOR COMPLIANCE; Start 04/30/21 at 11:15 Info (PHARMACY MONITORING -- do not chart) 1 each PRN DAILY PRN MC SEE COMMENTS; Start 04/30/21 at 12:30; Status Cancel Labetalol HCl (Normodyne Iv Push) 20 mg PRN Q2HR PRN IVP HYPERTENSION, 2ND CHOICE Last administered on 05/06/21at 17:19; Start 05/01/21 at 12:30 Heparin Sodium (Porcine) (Heparin Sodium) 5,000 unit Q8HRS SQ Last administered on 05/11/21at 06:40; Start 05/01/21 at 14:00 Furosemide (Lasix) 80 mg 1X ONCE IVP Last administered on 05/02/21at 10:45; Start 05/02/21 at 10:45; Stop 05/02/21 at 10:46; Status DC Furosemide (Lasix) 40 mg Q8HRS IVP Last administered on 05/11/21at 06:39; Start 05/02/21 at 14:00 Sodium Chloride 1,000 ml @ 1,000 mls/hr Q1H PRN IV hypotension; Start 05/02/21 at 11:30; Stop 05/02/21 at 17:29; Status DC Albumin Human 200 ml @ 200 mls/hr 1X PRN PRN IV Hypotension; Start 05/02/21 at 11:30; Stop 05/02/21 at 17:29; Status DC Sodium Chloride (Normal Saline Flush) 10 ml 1X PRN PRN IV AP catheter pack; Start 05/02/21 at 11:30; Stop 05/02/21 at 18:00; Status DC Sodium Chloride (Normal Saline Flush) 10 ml 1X PRN PRN IV EXHAUST AND MUFFLER FITTER catheter pack; Start 05/02/21 at 11:30; Stop 05/02/21 at 18:00; Status DC Sodium Chloride 1,000 ml @ 400 mls/hr Q2H30M PRN IV PATENCY; Start 05/02/21 at 11:30; Stop 05/02/21 at 23:29; Status DC Info (PHARMACY MONITORING -- do not chart) 1 each PRN DAILY PRN MC SEE COMMENTS; Start 05/02/21 at 11:30; Status UNV Info (PHARMACY MONITORING -- do not chart) 1 each PRN DAILY PRN MC SEE COMMENTS; Start 05/02/21 at 11:30; Status UNV Norepinephrine Bitartrate 8 mg/ Dextrose 258 ml @ 25.852 mls/ hr CONT PRN IV PER PROTOCOL Last administered on 05/02/21at 21:22; Start 05/02/21 at 21:00; Stop 05/09/21 at 06:10; Status DC Dextrose 1,000 ml @ 50 mls/hr Q20H IV Last administered on 05/03/21at 05:15; Start 05/03/21 at 05:15; Stop 05/03/21 at 13:53; Status DC Aspirin (Aspirin Chewable) 81 mg DAILYWBKFT PO Last administered on 05/11/21at 07:13; Start 05/03/21 at 10:00 Insulin Glargine (Lantus Syringe) 10 unit QHS SQ Last administered on 05/10/21at 20:53; Start 05/03/21 at 21:00 Insulin Human Lispro (HumaLOG) 0-5 UNITS Q6HRS SQ Last administered on 05/11/21at 00:14; Start 05/03/21 at 18:00 Dextrose (Dextrose 50%-Water Syringe) 12.5 gm PRN Q15MIN PRN IV SEE COMMENTS; Start 05/03/21 at 14:00 Sodium Chloride 1,000 ml @ 1,000 mls/hr Q1H PRN IV hypotension; Start 05/04/21 at 07:30; Stop 05/04/21 at 13:29; Status DC Albumin Human 200 ml @ 200 mls/hr 1X PRN PRN IV Hypotension Last administered on 05/04/21at 10:46; Start 05/04/21 at 07:30; Stop 05/04/21 at 13:29; Status DC Sodium Chloride (Normal Saline Flush) 10 ml 1X PRN PRN IV AP catheter pack; Start 05/04/21 at 07:30; Stop 05/05/21 at 07:29; Status DC Sodium Chloride (Normal Saline Flush) 10 ml 1X PRN PRN IV EXHAUST AND MUFFLER FITTER catheter pack; Start 05/04/21 at 07:30; Stop 05/05/21 at 07:29; Status DC Sodium Chloride 1,000 ml @ 400 mls/hr Q2H30M PRN IV PATENCY; Start 05/04/21 at 07:30; Stop 05/04/21 at 19:29; Status DC Info (PHARMACY MONITORING -- do not chart) 1 each PRN DAILY PRN MC SEE COMMENTS; Start 05/04/21 at 07:30; Status UNV Info (PHARMACY MONITORING -- do not chart) 1 each PRN DAILY PRN MC SEE COMMENTS; Start 05/04/21 at 07:30; Stop 05/07/21 at 08:47; Status DC Dexmedetomidine HCl 400 mcg/ Sodium Chloride 100 ml @ 0 mls/hr CONT PRN IV PER PROTOCOL Last administered on 05/10/21at 23:31; Start 05/04/21 at 10:30 Cefepime HCl (Maxipime) 1 gm Q24H IVP Last administered on 05/10/21at 16:31; Start 05/04/21 at 16:00; Stop 05/11/21 at 07:24; Status DC Daptomycin 600 mg/ Sodium Chloride 50 ml @ 100 mls/hr Q48H IV Last admin istered on 05/04/21at 15:24; Start 05/04/21 at 15:00; Stop 05/06/21 at 08:07; Status DC Potassium Chloride/Water 100 ml @ 100 mls/hr 1X ONCE IV Last administered on 05/06/21at 09:14; Start 05/06/21 at 08:30; Stop 05/06/21 at 09:29; Status DC Nicardipine HCl 50 mg/Sodium Chloride 250 ml @ 25 mls/hr CONT PRN IV SEE I/O RECORD Last administered on 05/08/21at 21:30; Start 05/06/21 at 18:45 Sodium Chloride 1,000 ml @ 1,000 mls/hr Q1H PRN IV hypotension; Start 05/07/21 at 08:45; Stop 05/07/21 at 14:44; Status DC Albumin Human 200 ml @ 200 mls/hr 1X PRN PRN IV Hypotension Last administered on 05/07/21at 11:41; Start 05/07/21 at 08:45; Stop 05/07/21 at 14:44; Status DC Sodium Chloride 1,000 ml @ 400 mls/hr Q2H30M PRN IV PATENCY; Start 05/07/21 at 08:45; Stop 05/07/21 at 20:44; Status DC Info (PHARMACY MONITORING -- do not chart) 1 each PRN DAILY PRN MC SEE COMMENTS; Start 05/07/21 at 08:45; Status UNV Info (PHARMACY MONITORING -- do not chart) 1 each PRN DAILY PRN MC SEE COMMENTS; Start 05/07/21 at 08:45 Albumin Human 100 ml @ 100 mls/hr 1X ONCE IV ; Start 05/07/21 at 11:45; Stop 05/07/21 at 12:44; Status DC Multi-Ingred Cream/Lotion/Oil/ Oint (Artificial Tears Eye Ointment) 1 danielito PRN Q1HR PRN OU DRY EYE Last administered on 05/10/21at 20:51; Start 05/07/21 at 16:00 Potassium Chloride/Water 100 ml @ 100 mls/hr Q1H IV Last administered on 05/08/21at 11:54; Start 05/08/21 at 11:00; Stop 05/08/21 at 12:59; Status DC Potassium Chloride/Water 100 ml @ 100 mls/hr Q1H IV Last administered on 05/09/21at 11:43; Start 05/09/21 at 10:00; Stop 05/09/21 at 11:59; Status DC Potassium Chloride/Water 100 ml @ 100 mls/hr Q1H IV Last administered on 05/10/21at 10:56; Start 05/10/21 at 10:00; Stop 05/10/21 at 11:59; Status DC Hydralazine HCl (Apresoline) 25 mg QID PO Last administered on 05/11/21at 08:46; Start 05/10/21 at 10:00 Amlodipine Besylate (Norvasc) 5 mg DAILY PO Last administered on 05/11/21at 08:46; Start 05/10/21 at 10:00 Magnesium Sulfate 50 ml @ 25 mls/hr 1X ONCE IV Last administered on 05/10/21at 14:36; Start 05/10/21 at 13:30; Stop 05/10/21 at 15:29; Status DC Linezolid/Dextrose 300 ml @ 300 mls/hr Q12HR IV ; Start 05/11/21 at 09:00 Meropenem 500 mg/ Sodium Chloride 50 ml @ 100 mls/hr Q8HRS IV ; Start 05/11/21 at 14:00 Active Scripts Active Glyburide 2.5 Mg Tablet 1 Tab PO DAILY 14 Days Polyethylene Glycol 3350 17 Gm Powd.pack 17 Gm PO DAILY 14 Days Dok (Docusate Sodium) 100 Mg Capsule 100 Mg PO PRN DAILY PRN 30 Days Bisacodyl 5 Mg Tablet.dr 5 Mg PO PRN DAILY PRN 14 Days Acetaminophen 325 Mg Tablet 650 Mg PO PRN Q4HRS PRN 14 Days Aspirin Ec (Aspirin) 81 Mg Tablet.dr 81 Mg PO DAILYWBKFT 30 Days Hydralazine Hcl 25 Mg Tablet 25 Mg PO QID 30 Days Reported Fenofibrate 54 Mg Tablet 1 Tab PO DAILY Potassium Chloride (Potassium Chloride) 20 Meq Tablet.er 20 Meq PO DAILY Coreg (Carvedilol) 12.5 Mg Tablet 37.5 Mg PO BIDWMEALS Rosuvastatin Calcium 40 Mg Tablet 40 Mg PO QHS Gabapentin (Gabapentin) 100 Mg Capsule 200 Mg PO BID Montelukast Sodium Tablet (Montelukast Sodium) 10 Mg Tablet 10 Mg PO HS Protonix (Pantoprazole Sodium) 20 Mg Tablet.dr 2 Tab PO DAILY Amlodipine Besylate 5 Mg Tablet 5 Mg PO DAILY Furosemide 40 Mg Tablet 1 Tab PO DAILY Proair Hfa Inhaler (Albuterol Sulfate) 8.5 Gm Hfa.aer.ad 2 Puff IH PRN Q4-6HRS PRN 21 Days Advair 100-50 Diskus (Fluticasone/Salmeterol) 1 Each Disk.w.dev 1 Puff IH BID Vitals/I & O Vital Sign - Last 24 Hours 05/10/21 05/10/21 05/10/21 05/10/21 09:47 10:00 10:56 11:00 Temp 95.4 95.5 95.4 95.5 Pulse 44 44 45 Resp 20 20 B/P (MAP) 152/58 (89) 152/58 150/63 (92) Pulse Ox 100 100 100 O2 Delivery Ventilator Ventilator Ventilator 05/10/21 05/10/21 05/10/21 05/10/21 11:59 12:00 12:00 12:00 Temp 97.6 97.6 Pulse 48 54 Resp 20 B/P (MAP) 148/64 (92) Pulse Ox 100 100 O2 Delivery Ventilator Ventilator Mechanical Ventilator 05/10/21 05/10/21 05/10/21 05/10/21 13:00 13:40 13:42 14:00 Pulse 60 54 54 48 Resp 20 20 B/P (MAP) 190/88 (122) 196/88 196/88 150/60 (90) Pulse Ox 100 100 O2 Delivery Ventilator Ventilator 05/10/21 05/10/21 05/10/21 05/10/21 15:00 15:40 16:00 16:00 Temp 96.3 96.3 Pulse 51 76 Resp 20 20 B/P (MAP) 100/46 (64) 157/63 (94) Pulse Ox 98 97 98 O2 Delivery Ventilator Ventilator Mechanical Ventilator Ventilator 05/10/21 05/10/21 05/10/21 05/10/21 16:32 17:00 17:02 17:04 Pulse 64 63 Resp 20 22 22 B/P (MAP) 122/51 (74) 126/51 Pulse Ox 97 97 97 O2 Delivery Ventilator Ventilator Ventilator 05/10/21 05/10/21 05/10/21 05/10/21 17:48 18:00 18:18 19:09 Pulse 55 65 53 Resp 22 20 B/P (MAP) 147/65 (92) 117/53 (74) Pulse Ox 100 100 100 O2 Delivery Ventilator Ventilator Ventilator 05/10/21 05/10/21 05/10/21 05/10/21 20:00 20:00 20:00 20:51 Temp 97.5 97.5 Pulse 49 49 Resp 20 B/P (MAP) 96/59 (71) 93/51 Pulse Ox 100 100 O2 Delivery Mechanical Ventilator Ventilator Ventilator 05/10/21 05/10/21 05/10/21 05/10/21 21:15 22:02 22:15 22:58 Pulse 48 47 Resp 20 20 20 B/P (MAP) 114/52 (72) 116/56 (76) Pulse Ox 100 100 100 100 O2 Delivery Ventilator Ventilator Ventilator Ventilator 05/10/21 05/10/21 05/11/21 05/11/21 23:09 23:28 00:00 00:08 Temp 94.6 94.6 Pulse 54 54 54 Resp 20 20 20 B/P (MAP) 150/71 (97) 150/71 (97) 150/71 Pulse Ox 100 100 100 O2 Delivery Ventilator Ventilator Ventilator 05/11/21 05/11/21 05/11/21 05/11/21 00:32 01:05 01:16 02:11 Temp 97.5 97.5 Pulse 52 47 Resp 20 20 B/P (MAP) 106/53 (70) 108/54 (72) Pulse Ox 100 100 100 O2 Delivery Mechanical Ventilator Ventilator Ventilator Ventilator 05/11/21 05/11/21 05/11/21 05/11/21 03:05 03:30 03:48 04:00 Temp 97.6 97.6 Pulse 48 69 Resp 20 20 B/P (MAP) 110/49 (69) 144/65 (91) Pulse Ox 100 100 100 O2 Delivery Ventilator Ventilator Mechanical Ventilator Ventilator 05/11/21 05/11/21 05/11/21 05/11/21 05:00 05:03 05:49 06:42 Pulse 66 70 59 Resp 20 20 B/P (MAP) 160/63 (95) 124/61 123/50 (74) Pulse Ox 100 100 100 O2 Delivery Ventilator Ventilator Ventilator 05/11/21 05/11/21 05/11/21 05/11/21 07:00 07:13 07:35 07:43 Pulse 57 Resp 20 20 20 B/P (MAP) 96/42 (60) Pulse Ox 96 100 96 100 O2 Delivery Ventilator Ventilator Ventilator Ventilator 05/11/21 05/11/21 05/11/21 05/11/21 08:00 08:00 08:46 08:46 Temp 98.5 98.5 Pulse 74 85 85 Resp 20 B/P (MAP) 172/71 (104) 176/104 176/104 Pulse Ox 100 O2 Delivery Ventilator Mechanical Ventilator 05/11/21 05/11/21 05/11/21 08:46 09:00 09:21 Pulse 85 92 Resp 24 B/P (MAP) 176/104 170/91 (117) Pulse Ox 99 99 O2 Delivery Ventilator Ventilator Intake and Output 05/10/21 05/10/21 05/11/21 15:00 23:00 07:00 Intake Total 720 ml 2108 ml 1981 ml Output Total 825 ml 695 ml 480 ml Balance -105 ml 1413 ml 1501 ml Justicifation of Admission Dx: Justifications for Admission: Justification of Admission Dx: Yes Aspiration Pneumonia: Hemodynamic Instability ALBA SWAIN MD May 11, 2021 09:40
--- NOTE | 2021-05-11 09:58 | PDOC ---
C[facility] Progress Notes Date and Time Date of Service 05/11/2021 Time of Evaluation 0930 Subjective Subjective: Other (intubated ) Vitals Vitals Vital Signs Date Time Temp Pulse Resp B/P (MAP) Pulse Ox O2 Delivery O2 Flow Rate FiO2 05/11/21 09:21 99 Ventilator 05/11/21 09:00 92 24 170/91 (117) 05/11/21 08:00 98.5 98.5 Weight Weight [ ] Input and Output Intake and Output Intake and Output 05/11/21 07:00 Intake Total 4809 ml Output Total 2000 ml Balance 2809 ml IV Total 1094 ml Tube Feeding 2001 ml Other 1714 ml Output Urine Total 2000 ml Laboratory Labs Laboratory Tests Test 05/10/21 11:55 05/10/21 17:32 05/11/21 00:07 05/11/21 05:45 Glucose (Fingerstick) 177 mg/dL (70-99) 194 mg/dL (70-99) 152 mg/dL (70-99) 145 mg/dL (70-99) Test 05/11/21 06:30 05/11/21 07:52 05/11/21 09:20 White Blood Count 16.9 x10^3/uL (4.0-11.0) Red Blood Count 2.94 x10^6/uL (4.30-5.70) Hemoglobin 7.8 g/dL (13.0-17.5) Hematocrit 24.1 % (39.0-53.0) Mean Corpuscular Volume 82 fL (79-100) Mean Corpuscular Hemoglobin 27 pg (25-35) Mean Corpuscular Hemoglobin Concent 33 g/dL (31-37) Red Cell Distribution Width 15.8 % (11.5-14.5) Platelet Count 347 x10^3/uL (140-400) Neutrophils (%) (Auto) 81 % (31-73) Lymphocytes (%) (Auto) 9 % (24-48) Monocytes (%) (Auto) 8 % (0-9) Eosinophils (%) (Auto) 1 % (0-3) Basophils (%) (Auto) 0 % (0-3) Neutrophils # (Auto) 13.7 x10^3/uL (1.8-7.7) Lymphocytes # (Auto) 1.5 x10^3/uL (1.0-4.8) Monocytes # (Auto) 1.4 x10^3/uL (0.0-1.1) Eosinophils # (Auto) 0.2 x10^3/uL (0.0-0.7) Basophils # (Auto) 0.1 x10^3/uL (0.0-0.2) Sodium Level 130 mmol/L (136-145) Potassium Level 3.3 mmol/L (3.5-5.1) Chloride Level 95 mmol/L (98-107) Carbon Dioxide Level 22 mmol/L (21-32) Anion Gap 13 (6-14) Blood Urea Nitrogen 51 mg/dL (8-26) Creatinine 3.0 mg/dL (0.7-1.3) Estimated GFR (Cockcroft-Gault) 24.9 Glucose Level 145 mg/dL (70-99) Calcium Level 8.4 mg/dL (8.5-10.1) O2 Saturation 79 % (92-99) 91 % (92-99) Arterial Blood pH 7.39 (7.35-7.45) 7.40 (7.35-7.45) Arterial Blood pCO2 at Patient Temp 36 mmHg (35-46) 35 mmHg (35-46) Arterial Blood pO2 at Patient Temp 46 mmHg (65-108) 64 mmHg (65-108) Arterial Blood HCO3 21 mmol/L (21-28) 21 mmol/L (21-28) Arterial Blood Base Excess -3 mmol/L (-3-3) -4 mmol/L (-3-3) FiO2 40 40 Microbiology Micro Microbiology 05/04/21 Gram Stain Evaluation - Final, Complete 05/04/21 Respiratory Culture - Final, Complete 05/04/21 Gram Stain - Final, Complete 05/04/21 Aerobic Culture - Final, Complete 05/04/21 Blood Culture - Final, Complete NO GROWTH AFTER 5 DAYS Review of Systems Constitutional: yes: unresponsive, other (UNABLE TO OBTAIN) Physical Exam HEENT: Neck Supple W Full Motion Chest: Symmetric LUNGS: Other (MV) Heart: RRR (SR/SB) Abdomen: Other (soft) Extremities: Other (1+ bilateral LE edema ) Neurology: other (sedated) Assessment Assessment 1. Acute respiratory failure secondary to CHF, s/p intubation. COVID + 2. Acute on chronic diastolic CHF 3. Hypertensive urgency; controlled. labile episodes 4. NSTEMI; trop highest 2.8. Echo last week with preserved LV systolic function with moderate LVH. Most probable type II, demand ischemia in setting of above, although underling ischemic cannot be ruled out 5. ? CAD; details unknown 6. Hyperlipidemia; statin 7. 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 Diabetes, II 9. Leukocytosis 10. H/o bilateral subclavian stenosis s/p left subclavian sent placement complicated by retroperitoneal hematoma s/p evacuation in 08/2015. 11. New AFIB with RVR: maintaining SR with PACs 12. Protein malnutrition 13. anemia: Hgb at 8.2 14. Sinus bradycardia: no pauses better today 15. Hypothermia: improved Recommendations 1. ASA, statin 2. Metoprolol for rate control may hold per HR trend. Hydralazine IV PRN 3. Continue Amiodarone for rhythm maintenance 4. SQ heparin 5. Fluid offloading via HD. Defer lasix to nephrology. Replace K 6. Ongoing lung optimization, treatment of COVID PNA as per pulm 7. Supportive care Justicifation of Admission Dx: Justifications for Admission: Justification of Admission Dx: Yes Aspiration Pneumonia: Hemodynamic Instability BON SAWANT SHELLFISH WEIGHER May 11, 2021 09:58
--- NOTE | 2021-05-11 10:02 | RAD ---
EXAM: Chest, single view. HISTORY: Central line placement. COMPARISON: 05/10/2021 FINDINGS: A frontal view of the chest is obtained. There is an endotracheal tube within the mid trach ea. There is a nasogastric tube within the stomach. There are right internal jugular catheters with t he tips in the superior cavoatrial junction. There is no pneumothorax. There is stable diffuse left g reater than right lower lobe predominant infiltrate and small left greater than right pleural effusio ns. There is a stable cardiac silhouette. IMPRESSION: 1. Interval right internal jugular central venous catheter placement. The tip is in the superior cavo atrial junction. There is no pneumothorax. The remainder of the support lines and tubes are unchanged . 2. Stable diffuse left lower lobe predominant infiltrate and small pleural effusions. Electronically signed by: Cynthia Duenas MD (05/11/2021 10:00 AM) [id number]
[2021-05-11] MEDS: DEXMEDETOMIDINE 400 MCG in IV NORMAL SALINE 100ML 96 ML IV PRN ×2 (10:32→21:33)
[2021-05-11] MEDS: VECURONIUM BOLUS 10 MG VIAL. IV PRN (11:59)
[2021-05-11] MEDS: hydrALAZINE 20 MG/ML VIAL. IVP PRN (13:19)
[2021-05-11] MEDS: MEROPENEM 500 MG in IV NORMAL SALINE 50ML 50 ML IV SCH ×2 (13:19→22:00)
[2021-05-11] MEDS: LABETALOL 20 MG/4 ML DISP.SYRIN. IVP PRN (13:35)
--- NOTE | 2021-05-11 13:49 | PDOC ---
SURGICAL PROGRESS NOTE DATE: 05/11/21 TIME: 13:48 Subjective Pt intubated Vital Signs Vital Signs Date Time Temp Pulse Resp B/P (MAP) Pulse Ox O2 Delivery O2 Flow Rate FiO2 05/11/21 13:35 103 169/78 05/11/21 13:20 98 Ventilator 05/11/21 12:00 98.8 30 98.8 I&O Intake and Output 05/11/21 07:00 Intake Total 4809 ml Output Total 2000 ml Balance 2809 ml IV Total 1094 ml Tube Feeding 2001 ml Other 1714 ml Output Urine Total 2000 ml General: No acute distress Labs Laboratory Tests Test 05/09/21 17:26 05/10/21 00:50 05/10/21 06:25 05/10/21 08:00 Glucose (Fingerstick) 163 mg/dL (70-99) 164 mg/dL (70-99) 141 mg/dL (70-99) White Blood Count 15.3 x10^3/uL (4.0-11.0) Red Blood Count 2.81 x10^6/uL (4.30-5.70) Hemoglobin 7.5 g/dL (13.0-17.5) Hematocrit 22.9 % (39.0-53.0) Mean Corpuscular Volume 82 fL (79-100) Mean Corpuscular Hemoglobin 27 pg (25-35) Mean Corpuscular Hemoglobin Concent 33 g/dL (31-37) Red Cell Distribution Width 15.6 % (11.5-14.5) Platelet Count 288 x10^3/uL (140-400) Neutrophils (%) (Auto) 81 % (31-73) Lymphocytes (%) (Auto) 10 % (24-48) Monocytes (%) (Auto) 8 % (0-9) Eosinophils (%) (Auto) 1 % (0-3) Basophils (%) (Auto) 0 % (0-3) Neutrophils # (Auto) 12.4 x10^3/uL (1.8-7.7) Lymphocytes # (Auto) 1.5 x10^3/uL (1.0-4.8) Monocytes # (Auto) 1.2 x10^3/uL (0.0-1.1) Eosinophils # (Auto) 0.2 x10^3/uL (0.0-0.7) Basophils # (Auto) 0.0 x10^3/uL (0.0-0.2) Sodium Level 132 mmol/L (136-145) Potassium Level 2.6 mmol/L (3.5-5.1) Chloride Level 99 mmol/L (98-107) Carbon Dioxide Level 21 mmol/L (21-32) Anion Gap 12 (6-14) Blood Urea Nitrogen 47 mg/dL (8-26) Creatinine 2.7 mg/dL (0.7-1.3) Estimated GFR (Cockcroft-Gault) 28.1 BUN/Creatinine Ratio 17 (6-20) Glucose Level 164 mg/dL (70-99) Calcium Level 7.8 mg/dL (8.5-10.1) Magnesium Level 1.7 mg/dL (1.8-2.4) Total Bilirubin 0.4 mg/dL (0.2-1.0) Aspartate Amino Transf (AST/SGOT) 38 U/L (15-37) Alanine Aminotransferase (ALT/SGPT) 32 U/L (16-63) Alkaline Phosphatase 58 U/L (46-116) Total Protein 5.1 g/dL (6.4-8.2) Albumin 1.4 g/dL (3.4-5.0) Albumin/Globulin Ratio 0.4 (1.0-1.7) O2 Saturation 95 % (92-99) Arterial Blood pH 7.42 (7.35-7.45) Arterial Blood pCO2 at Patient Temp 34 mmHg (35-46) Arterial Blood pO2 at Patient Temp 78 mmHg (65-108) Arterial Blood HCO3 22 mmol/L (21-28) Arterial Blood Base Excess -3 mmol/L (-3-3) FiO2 40%+5 Test 05/10/21 11:55 05/10/21 17:32 05/11/21 00:07 05/11/21 05:45 Glucose (Fingerstick) 177 mg/dL (70-99) 194 mg/dL (70-99) 152 mg/dL (70-99) 145 mg/dL (70-99) Test 05/11/21 06:30 05/11/21 07:52 05/11/21 09:20 05/11/21 11:48 White Blood Count 16.9 x10^3/uL (4.0-11.0) Red Blood Count 2.94 x10^6/uL (4.30-5.70) Hemoglobin 7.8 g/dL (13.0-17.5) Hematocrit 24.1 % (39.0-53.0) Mean Corpuscular Volume 82 fL (79-100) Mean Corpuscular Hemoglobin 27 pg (25-35) Mean Corpuscular Hemoglobin Concent 33 g/dL (31-37) Red Cell Distribution Width 15.8 % (11.5-14.5) Platelet Count 347 x10^3/uL (140-400) Neutrophils (%) (Auto) 81 % (31-73) Lymphocytes (%) (Auto) 9 % (24-48) Monocytes (%) (Auto) 8 % (0-9) Eosinophils (%) (Auto) 1 % (0-3) Basophils (%) (Auto) 0 % (0-3) Neutrophils # (Auto) 13.7 x10^3/uL (1.8-7.7) Lymphocytes # (Auto) 1.5 x10^3/uL (1.0-4.8) Monocytes # (Auto) 1.4 x10^3/uL (0.0-1.1) Eosinophils # (Auto) 0.2 x10^3/uL (0.0-0.7) Basophils # (Auto) 0.1 x10^3/uL (0.0-0.2) Sodium Level 130 mmol/L (136-145) Potassium Level 3.3 mmol/L (3.5-5.1) Chloride Level 95 mmol/L (98-107) Carbon Dioxide Level 22 mmol/L (21-32) Anion Gap 13 (6-14) Blood Urea Nitrogen 51 mg/dL (8-26) Creatinine 3.0 mg/dL (0.7-1.3) Estimated GFR (Cockcroft-Gault) 24.9 Glucose Level 145 mg/dL (70-99) Calcium Level 8.4 mg/dL (8.5-10.1) O2 Saturation 79 % (92-99) 91 % (92-99) Arterial Blood pH 7.39 (7.35-7.45) 7.40 (7.35-7.45) Arterial Blood pCO2 at Patient Temp 36 mmHg (35-46) 35 mmHg (35-46) Arterial Blood pO2 at Patient Temp 46 mmHg (65-108) 64 mmHg (65-108) Arterial Blood HCO3 21 mmol/L (21-28) 21 mmol/L (21-28) Arterial Blood Base Excess -3 mmol/L (-3-3) -4 mmol/L (-3-3) FiO2 40 40 Glucose (Fingerstick) 197 mg/dL (70-99) Laboratory Tests Test 05/10/21 17:32 05/11/21 00:07 05/11/21 05:45 05/11/21 06:30 Glucose (Fingerstick) 194 mg/dL (70-99) 152 mg/dL (70-99) 145 mg/dL (70-99) White Blood Count 16.9 x10^3/uL (4.0-11.0) Red Blood Count 2.94 x10^6/uL (4.30-5.70) Hemoglobin 7.8 g/dL (13.0-17.5) Hematocrit 24.1 % (39.0-53.0) Mean Corpuscular Volume 82 fL (79-100) Mean Corpuscular Hemoglobin 27 pg (25-35) Mean Corpuscular Hemoglobin Concent 33 g/dL (31-37) Red Cell Distribution Width 15.8 % (11.5-14.5) Platelet Count 347 x10^3/uL (140-400) Neutrophils (%) (Auto) 81 % (31-73) Lymphocytes (%) (Auto) 9 % (24-48) Monocytes (%) (Auto) 8 % (0-9) Eosinophils (%) (Auto) 1 % (0-3) Basophils (%) (Auto) 0 % (0-3) Neutrophils # (Auto) 13.7 x10^3/uL (1.8-7.7) Lymphocytes # (Auto) 1.5 x10^3/uL (1.0-4.8) Monocytes # (Auto) 1.4 x10^3/uL (0.0-1.1) Eosinophils # (Auto) 0.2 x10^3/uL (0.0-0.7) Basophils # (Auto) 0.1 x10^3/uL (0.0-0.2) Sodium Level 130 mmol/L (136-145) Potassium Level 3.3 mmol/L (3.5-5.1) Chloride Level 95 mmol/L (98-107) Carbon Dioxide Level 22 mmol/L (21-32) Anion Gap 13 (6-14) Blood Urea Nitrogen 51 mg/dL (8-26) Creatinine 3.0 mg/dL (0.7-1.3) Estimated GFR (Cockcroft-Gault) 24.9 Glucose Level 145 mg/dL (70-99) Calcium Level 8.4 mg/dL (8.5-10.1) Test 05/11/21 07:52 05/11/21 09:20 05/11/21 11:48 O2 Saturation 79 % (92-99) 91 % (92-99) Arterial Blood pH 7.39 (7.35-7.45) 7.40 (7.35-7.45) Arterial Blood pCO2 at Patient Temp 36 mmHg (35-46) 35 mmHg (35-46) Arterial Blood pO2 at Patient Temp 46 mmHg (65-108) 64 mmHg (65-108) Arterial Blood HCO3 21 mmol/L (21-28) 21 mmol/L (21-28) Arterial Blood Base Excess -3 mmol/L (-3-3) -4 mmol/L (-3-3) FiO2 40 40 Glucose (Fingerstick) 197 mg/dL (70-99) Problem List Problems Medical Problems: (1) Elevated troponin Status: Acute (2) Person under investigation for COVID-19 Status: Acute (3) Pulmonary edema Status: Acute Assessment/Plan will tentatively plan trach on 05/15 Justicifation of Admission Dx: Justifications for Admission: Justification of Admission Dx: Yes Aspiration Pneumonia: Hemodynamic Instability TIO CARSON MD May 11, 2021 13:49
--- NOTE | 2021-05-11 14:56 | NUR ---
SS following up with discharge planning. SS reviewed pt chart and discussed with pt RN. Pt is currently on the vent at 40%. COVID19 positive. Pt on IV Meropenem, IV Zyvox, and IV Lasix. Pt on Propofol, Fentanyl, and Precedex. Nephrology following for hemodialysis. Pt tentatively scheduled for trach on 05/15/2021. SS will continue to follow for discharge planning.
--- NOTE | 2021-05-11 15:00 | RAD ---
05/11/2021 Procedure: Placement of right internal jugular triple-lumen central venous catheter INDICATION: Covid 19, critically ill patient on ventilator. Sterility: All elements of maximal sterile barrier technique including the use of a cap, mask, steril e gown, sterile gloves, large sterile sheet, appropriate hand hygiene, and 2% chlorhexidine for cutan eous antisepsis (or acceptable alternative antiseptic per current guidelines) were followed for this procedure. Consent: The procedure was explained in its entirety to the patient or the patients designated repres entative by a member of the treatment team, including a discussion of the risks, benefits and commonl y accepted alternatives to the procedure, as well as the expected consequences of no therapy whatsoev er. Discussion of the risks included, but was not limited to, those that are most frequent and thos e that are rare but possibly severe or life-threatening, as well as the possibility of unforeseen com plications. Technique and Findings: Following informed consent, the patient was prepped and draped in the usual s terile fashion. Ultrasound interrogation of the right neck revealed patency and compressibility of t he right internal jugular vein. A 21-gauge micropuncture was then used to gain access to this vein u nder ultrasound guidance. A hard copy ultrasound image was recorded. A guidewire was advanced centra lly over which, following dilatation, a triple-lumen central line was placed. The new catheter was f ound to flush and aspirate normally. The catheter was secured in place. Sterile dressings were applie d. No immediate complications were identified. IMPRESSION: Placement of a right internal jugular triple-lumen central venous catheter Electronically signed by: Adam Doe MD (05/11/2021 2:58 PM) [id number]
[2021-05-11] MEDS: MONTELUKAST SODIUM 10 MG TABLET. PO SCH (20:51)
[2021-05-11] MEDS: ATORVASTATIN CALCIUM 40 MG TABLET. PO SCH (20:51)
[2021-05-11] MEDS: INSULIN GLARGINE SYRINGE. SQ SCH (21:59)
[2021-05-12] VITALS (30 sets, daily range): BP systolic 83–191; BP diastolic 45–77
[2021-05-12] MEDS: INSULIN LISPRO 300 UNITS/3 ML VIAL. SQ SCH ×4 (00:48→18:00)
[2021-05-12] MEDS: METOPROLOL IV PUSH 5 MG/5 ML VIAL. IVP SCH ×4 (01:07→17:29)
[2021-05-12] MEDS: PROPOFOL 100 ML IV PRN ×6 (01:19→21:54)
[2021-05-12] MEDS: DEXMEDETOMIDINE 400 MCG in IV NORMAL SALINE 100ML 96 ML IV PRN ×3 (04:42→19:28)
[2021-05-12] MEDS: MEROPENEM 500 MG in IV NORMAL SALINE 50ML 50 ML IV SCH ×3 (04:46→23:04)
[2021-05-12] MEDS: HEPARIN for SUB-Q USE 5,000 UNIT/ML VIAL. SQ SCH ×3 (04:48→21:52)
[2021-05-12 05:14] LABS: BASO % 0 % (0-3); EOS # 0.2 x10^3/uL (0.0-0.7); EOS % 1 % (0-3); LYMPH # 1.7 x10^3/uL (1.0-4.8); LYMPH % 12 % (24-48); MEAN CORPUSCULAR HEMOGLOBIN 27 pg (25-35); MEAN CORPUSCULAR HGB CONC 32 g/dL (31-37); MEAN CORPUSCULAR VOLUME 82 fL (79-100); MONO # 1.5 x10^3/uL (0.0-1.1); MONO % 10 % (0-9); NEUT # 11.3 x10^3/uL (1.8-7.7); NEUT % 77 % (31-73); PLATELET COUNT 311 x10^3/uL (140-400); RED BLOOD COUNT 2.57 x10^6/uL (4.30-5.70); RED CELL DISTRIBUTION WIDTH 16.1 % (11.5-14.5); WHITE BLOOD COUNT 14.7 x10^3/uL (4.0-11.0)
[2021-05-12 05:15] LABS: HEMOGLOBIN 6.8 g/dL (13.0-17.5)
[2021-05-12 05:34] LABS: CALCIUM 8.5 mg/dL (8.5-10.1); CREATININE 3.2 mg/dL (0.7-1.3); GFR 23.1
[2021-05-12 05:44] LABS: POTASSIUM 2.9 mmol/L (3.5-5.1)
[2021-05-12] MEDS: FUROSEMIDE 40 MG/4 ML VIAL. IVP SCH ×3 (06:00→23:00)
--- NOTE | 2021-05-12 06:31 | PDOC ---
PULMONARY PROGRESS NOTES DATE: 05/12/21 TIME: 06:29 Subjective Remains on ventilatory support 40%/peep of 5 Sedated on propofol, fentanyl, and Precedex Electrolyte abnormalities and anemia on a.m. labs No overnight concerns Vitals Vital Signs Date Time Temp Pulse Resp B/P (MAP) Pulse Ox O2 Delivery O2 Flow Rate FiO2 05/12/21 06:10 58 20 150/58 (88) 100 Ventilator 05/12/21 04:00 98.3 98.3 Comments Visual exam done due to COVID-19. Intubated and sedated No paradoxical breathing. Labs Laboratory Tests Test 05/10/21 08:00 05/10/21 11:55 05/10/21 17:32 05/11/21 00:07 O2 Saturation 95 % (92-99) Arterial Blood pH 7.42 (7.35-7.45) Arterial Blood pCO2 at Patient Temp 34 mmHg (35-46) Arterial Blood pO2 at Patient Temp 78 mmHg (65-108) Arterial Blood HCO3 22 mmol/L (21-28) Arterial Blood Base Excess -3 mmol/L (-3-3) FiO2 40%+5 Glucose (Fingerstick) 177 mg/dL (70-99) 194 mg/dL (70-99) 152 mg/dL (70-99) Test 05/11/21 05:45 05/11/21 06:30 05/11/21 07:52 05/11/21 09:20 Glucose (Fingerstick) 145 mg/dL (70-99) White Blood Count 16.9 x10^3/uL (4.0-11.0) Red Blood Count 2.94 x10^6/uL (4.30-5.70) Hemoglobin 7.8 g/dL (13.0-17.5) Hematocrit 24.1 % (39.0-53.0) Mean Corpuscular Volume 82 fL (79-100) Mean Corpuscular Hemoglobin 27 pg (25-35) Mean Corpuscular Hemoglobin Concent 33 g/dL (31-37) Red Cell Distribution Width 15.8 % (11.5-14.5) Platelet Count 347 x10^3/uL (140-400) Neutrophils (%) (Auto) 81 % (31-73) Lymphocytes (%) (Auto) 9 % (24-48) Monocytes (%) (Auto) 8 % (0-9) Eosinophils (%) (Auto) 1 % (0-3) Basophils (%) (Auto) 0 % (0-3) Neutrophils # (Auto) 13.7 x10^3/uL (1.8-7.7) Lymphocytes # (Auto) 1.5 x10^3/uL (1.0-4.8) Monocytes # (Auto) 1.4 x10^3/uL (0.0-1.1) Eosinophils # (Auto) 0.2 x10^3/uL (0.0-0.7) Basophils # (Auto) 0.1 x10^3/uL (0.0-0.2) Sodium Level 130 mmol/L (136-145) Potassium Level 3.3 mmol/L (3.5-5.1) Chloride Level 95 mmol/L (98-107) Carbon Dioxide Level 22 mmol/L (21-32) Anion Gap 13 (6-14) Blood Urea Nitrogen 51 mg/dL (8-26) Creatinine 3.0 mg/dL (0.7-1.3) Estimated GFR (Cockcroft-Gault) 24.9 Glucose Level 145 mg/dL (70-99) Calcium Level 8.4 mg/dL (8.5-10.1) O2 Saturation 79 % (92-99) 91 % (92-99) Arterial Blood pH 7.39 (7.35-7.45) 7.40 (7.35-7.45) Arterial Blood pCO2 at Patient Temp 36 mmHg (35-46) 35 mmHg (35-46) Arterial Blood pO2 at Patient Temp 46 mmHg (65-108) 64 mmHg (65-108) Arterial Blood HCO3 21 mmol/L (21-28) 21 mmol/L (21-28) Arterial Blood Base Excess -3 mmol/L (-3-3) -4 mmol/L (-3-3) FiO2 40 40 Test 05/11/21 11:48 05/11/21 17:38 05/12/21 00:47 05/12/21 05:00 Glucose (Fingerstick) 197 mg/dL (70-99) 195 mg/dL (70-99) 180 mg/dL (70-99) White Blood Count 14.7 x10^3/uL (4.0-11.0) Red Blood Count 2.57 x10^6/uL (4.30-5.70) Hemoglobin 6.8 g/dL (13.0-17.5) Hematocrit 21.0 % (39.0-53.0) Mean Corpuscular Volume 82 fL (79-100) Mean Corpuscular Hemoglobin 27 pg (25-35) Mean Corpuscular Hemoglobin Concent 32 g/dL (31-37) Red Cell Distribution Width 16.1 % (11.5-14.5) Platelet Count 311 x10^3/uL (140-400) Neutrophils (%) (Auto) 77 % (31-73) Lymphocytes (%) (Auto) 12 % (24-48) Monocytes (%) (Auto) 10 % (0-9) Eosinophils (%) (Auto) 1 % (0-3) Basophils (%) (Auto) 0 % (0-3) Neutrophils # (Auto) 11.3 x10^3/uL (1.8-7.7) Lymphocytes # (Auto) 1.7 x10^3/uL (1.0-4.8) Monocytes # (Auto) 1.5 x10^3/uL (0.0-1.1) Eosinophils # (Auto) 0.2 x10^3/uL (0.0-0.7) Basophils # (Auto) 0.0 x10^3/uL (0.0-0.2) Sodium Level 127 mmol/L (136-145) Potassium Level 2.9 mmol/L (3.5-5.1) Chloride Level 94 mmol/L (98-107) Carbon Dioxide Level 24 mmol/L (21-32) Anion Gap 9 (6-14) Blood Urea Nitrogen 52 mg/dL (8-26) Creatinine 3.2 mg/dL (0.7-1.3) Estimated GFR (Cockcroft-Gault) 23.1 Glucose Level 153 mg/dL (70-99) Calcium Level 8.5 mg/dL (8.5-10.1) Laboratory Tests Test 05/11/21 06:30 05/11/21 07:52 05/11/21 09:20 05/11/21 11:48 White Blood Count 16.9 x10^3/uL (4.0-11.0) Red Blood Count 2.94 x10^6/uL (4.30-5.70) Hemoglobin 7.8 g/dL (13.0-17.5) Hematocrit 24.1 % (39.0-53.0) Mean Corpuscular Volume 82 fL (79-100) Mean Corpuscular Hemoglobin 27 pg (25-35) Mean Corpuscular Hemoglobin Concent 33 g/dL (31-37) Red Cell Distribution Width 15.8 % (11.5-14.5) Platelet Count 347 x10^3/uL (140-400) Neutrophils (%) (Auto) 81 % (31-73) Lymphocytes (%) (Auto) 9 % (24-48) Monocytes (%) (Auto) 8 % (0-9) Eosinophils (%) (Auto) 1 % (0-3) Basophils (%) (Auto) 0 % (0-3) Neutrophils # (Auto) 13.7 x10^3/uL (1.8-7.7) Lymphocytes # (Auto) 1.5 x10^3/uL (1.0-4.8) Monocytes # (Auto) 1.4 x10^3/uL (0.0-1.1) Eosinophils # (Auto) 0.2 x10^3/uL (0.0-0.7) Basophils # (Auto) 0.1 x10^3/uL (0.0-0.2) Sodium Level 130 mmol/L (136-145) Potassium Level 3.3 mmol/L (3.5-5.1) Chloride Level 95 mmol/L (98-107) Carbon Dioxide Level 22 mmol/L (21-32) Anion Gap 13 (6-14) Blood Urea Nitrogen 51 mg/dL (8-26) Creatinine 3.0 mg/dL (0.7-1.3) Estimated GFR (Cockcroft-Gault) 24.9 Glucose Level 145 mg/dL (70-99) Calcium Level 8.4 mg/dL (8.5-10.1) O2 Saturation 79 % (92-99) 91 % (92-99) Arterial Blood pH 7.39 (7.35-7.45) 7.40 (7.35-7.45) Arterial Blood pCO2 at Patient Temp 36 mmHg (35-46) 35 mmHg (35-46) Arterial Blood pO2 at Patient Temp 46 mmHg (65-108) 64 mmHg (65-108) Arterial Blood HCO3 21 mmol/L (21-28) 21 mmol/L (21-28) Arterial Blood Base Excess -3 mmol/L (-3-3) -4 mmol/L (-3-3) FiO2 40 40 Glucose (Fingerstick) 197 mg/dL (70-99) Test 05/11/21 17:38 05/12/21 00:47 05/12/21 05:00 Glucose (Fingerstick) 195 mg/dL (70-99) 180 mg/dL (70-99) White Blood Count 14.7 x10^3/uL (4.0-11.0) Red Blood Count 2.57 x10^6/uL (4.30-5.70) Hemoglobin 6.8 g/dL (13.0-17.5) Hematocrit 21.0 % (39.0-53.0) Mean Corpuscular Volume 82 fL (79-100) Mean Corpuscular Hemoglobin 27 pg (25-35) Mean Corpuscular Hemoglobin Concent 32 g/dL (31-37) Red Cell Distribution Width 16.1 % (11.5-14.5) Platelet Count 311 x10^3/uL (140-400) Neutrophils (%) (Auto) 77 % (31-73) Lymphocytes (%) (Auto) 12 % (24-48) Monocytes (%) (Auto) 10 % (0-9) Eosinophils (%) (Auto) 1 % (0-3) Basophils (%) (Auto) 0 % (0-3) Neutrophils # (Auto) 11.3 x10^3/uL (1.8-7.7) Lymphocytes # (Auto) 1.7 x10^3/uL (1.0-4.8) Monocytes # (Auto) 1.5 x10^3/uL (0.0-1.1) Eosinophils # (Auto) 0.2 x10^3/uL (0.0-0.7) Basophils # (Auto) 0.0 x10^3/uL (0.0-0.2) Sodium Level 127 mmol/L (136-145) Potassium Level 2.9 mmol/L (3.5-5.1) Chloride Level 94 mmol/L (98-107) Carbon Dioxide Level 24 mmol/L (21-32) Anion Gap 9 (6-14) Blood Urea Nitrogen 52 mg/dL (8-26) Creatinine 3.2 mg/dL (0.7-1.3) Estimated GFR (Cockcroft-Gault) 23.1 Glucose Level 153 mg/dL (70-99) Calcium Level 8.5 mg/dL (8.5-10.1) Medications Active Scripts Medications Dose Route/Sig Max Daily Dose Days Date Category Glyburide 2.5 Mg Tablet 1 Tab PO DAILY 04/19/21 Rx Polyethylene Glycol 3350 17 Gm Powd.pack 17 Gm PO DAILY 04/19/21 Rx Dok (Docusate Sodium) 100 Mg Capsule 100 Mg PO PRN DAILY PRN 04/19/21 Rx Bisacodyl 5 Mg Tablet.dr 5 Mg PO PRN DAILY PRN 04/19/21 Rx Acetaminophen 325 Mg Tablet 650 Mg PO PRN Q4HRS PRN 04/19/21 Rx Aspirin Ec (Aspirin) 81 Mg Tablet.dr 81 Mg PO DAILYWBKFT 04/19/21 Rx Hydralazine Hcl 25 Mg Tablet 25 Mg PO QID 04/19/21 Rx Fenofibrate 54 Mg Tablet 1 Tab PO DAILY 04/17/21 Reported Potassium Chloride (Potassium Chloride) 20 Meq Tablet.er 20 Meq PO DAILY 04/17/21 Reported Coreg (Carvedilol) 12.5 Mg Tablet 37.5 Mg PO BIDWMEALS 04/17/21 Reported Rosuvastatin Calcium 40 Mg Tablet 40 Mg PO QHS 04/17/21 Reported Gabapentin (Gabapentin) 100 Mg Capsule 200 Mg PO BID 04/17/21 Reported Montelukast Sodium Tablet (Montelukast Sodium) 10 Mg Tablet 10 Mg PO HS 04/17/21 Reported Protonix (Pantoprazole Sodium) 20 Mg Tablet.dr 2 Tab PO DAILY 04/17/21 Reported Amlodipine Besylate 5 Mg Tablet 5 Mg PO DAILY 04/17/21 Reported Furosemide 40 Mg Tablet 1 Tab PO DAILY 04/17/21 Reported Proair Hfa Inhaler (Albuterol Sulfate) 8.5 Gm Hfa.aer.ad 2 Puff IH PRN Q4-6HRS PRN 21 04/16/21 Reported Advair 100-50 Diskus (Fluticasone/Salmeterol) 1 Each Disk.w.dev 1 Puff IH BID 04/16/21 Reported Comments Impression . IMPRESSION: 1. Acute hypoxic respiratory failure, multifactorial/COVID-19 viral pneumonia/ARDS, ongoing, intubated 04/25/[address] chest with bilateral diffuse interstitial infiltrates without any significant pleural effusion 3. Leukocytosis, sepsis--ongoing ID following 4. Non-ST segment elevation LA 5. History of tobacco use, suspect COPD, unknown FEV1 6. Chronic kidney disease.== Neph neurology following, hemodialysis currently on hold 7. Metabolic acidosis multifactorial 8. Abnormal chest x-ray 9. Hypoglycemia, continue to monitor 10. Hypotension, suspect volume deficit,/possible sepsis 11. Fever--resolved 12. Anemia Plan . Updated 05/12/21 Continue current vent support 20/500/40%/5 Patient did not tolerate sedation vacation 05/11/2021, profoundly hypertensive Follow ABG/CXR--changes as needed Follow ID recs for ABX --Continue cefepime, now on Zyvox as well Follow surgery recommendations for tracheostomy, plan for tracheostomy 05/15/2021 Follow nephrology recs-- HD --hemodialysis, replace electrolytes per nephrology recommendations Monitor hemoglobin, no active signs of bleeding, transfuse if hemoglobin less than 7.0, panel and for packed red blood cells x1 today with hemodialysis Follow Cardiology recs--preserved LV function, hypertension, continue TF for nutritional support DVT/GI PPX:D/C subQ heparin 2/2 anemia D/W RN and RT Pt. is DNR cct 30 min Updated 05/11/21 Continue current vent support 20/500/40%/5. While awaiting tracheostomy, will initiate another trial of CPAP if tolerates. Follow ABG/CXR--changes as needed Follow ID recs for ABX --Continue cefepime Follow surgery recommendations for tracheostomy Follow nephrology recs-- HD --hemodialysis currently on hold Follow Cardiology recs--preserved LV function, hypertension, off Cardene drip continue TF for nutritional support DVT/GI PPX:subQ heparin D/W RN and RT Pt. is DNR cct 30 min Updated 05/10/21 Patient was intubated 04/25/2021, unable to tolerate pressure support trials, we will consult surgery at this time for possible tracheostomy Continue current vent support 20/500/40%/5, attempt sedation vacation, patient did not tolerate reducing sedation 05/08/2021 became very tachypneic and hypertensive, again patient did not tolerate reducing sedation or pressure support trial on 05/09/2021 secondary to increased respiratory rate and increased blood pressure. Follow ABG/CXR--reviewed Patient has completed full course of steroids Follow ID recs for ABX --Continue cefepime Follow nephrology recs-- HD Follow Cardiology recs--preserved LV function, hypertension, remains on Cardene drip Hyperglycemia Per PCP continue TF for nutritional support DVT/GI PPX:subQ heparin D/W RN and RT Pt. is DNR I have discussed with patient's DPOA. I did explain to her about the need for tracheostomy. She is agreeable to proceed. General surgery has been consulted. cct 30 min JONES FISHMAN MD May 12, 2021 06:31
--- NOTE | 2021-05-12 06:37 | NUR ---
This RN left message for Owens, patient's grand daughter, to receive permission for transfusion of one unit of PRBC. Hgb 6.8, Cr 21.0.
[2021-05-12] MEDS ORDERED: POTASSIUM CHLORIDE 20MEQ 100 ML IV ONE (07:00)
[2021-05-12 08:16] LABS: BASE EXCESS ABG -5 mmol/L (-3-3); HCO3 ABG 19 mmol/L (21-28); PCO2 ABG 32 mmHg (35-46); PO2 ABG 86 mmHg (65-108); SAT O2 ABG 96 % (92-99)
[2021-05-12] MEDS: PANTOPRAZOLE IV PUSH 40 MG VIAL. IVP SCH (08:54)
[2021-05-12] MEDS: hydrALAZINE 25 MG TABLET PO SCH ×4 (08:55→21:49)
[2021-05-12] MEDS: ASPIRIN CHEWABLE 81 MG TABLET. PO SCH (08:55)
[2021-05-12] MEDS: AMIODARONE HCL 200 MG TABLET. PO SCH (08:56)
[2021-05-12 09:25] LABS: FIO2 ABG 40/VENT
--- NOTE | 2021-05-12 09:58 | PDOC ---
Infectious Disease Note Subjective Subjective Patient intubated/sedated ROS ROS No nausea vomiting or fever Vital Sign Vital Signs Vital Signs Date Time Temp Pulse Resp B/P (MAP) Pulse Ox O2 Delivery O2 Flow Rate FiO2 05/12/21 09:35 100 Ventilator 05/12/21 08:56 52 108/46 05/12/21 07:00 20 05/12/21 04:00 98.3 98.3 Physical Exam PHYSICAL EXAM GENERAL: Well-developed and well-nourished male, intubated, sedated. HEENT: Normocephalic, atraumatic, and anicteric. ETT and OGT present. NECK: Right IJ removed, right dialysis catheter present clean HEART: S1, S2. LUNGS: Decreased breath sounds. ABDOMEN: Soft, obese, bowel sounds present. GENITOURINARY: Nieves in place. EXTREMITIES: Edema present. DERMATOLOGIC: Warm, dry, no generalized rash. NEUROLOGIC: Intubated. PSYCHIATRIC: Unable to obtain. Labs Lab Laboratory Tests Test 05/11/21 11:48 05/11/21 17:38 05/12/21 00:47 05/12/21 05:00 Glucose (Fingerstick) 197 mg/dL (70-99) 195 mg/dL (70-99) 180 mg/dL (70-99) White Blood Count 14.7 x10^3/uL (4.0-11.0) Red Blood Count 2.57 x10^6/uL (4.30-5.70) Hemoglobin 6.8 g/dL (13.0-17.5) Hematocrit 21.0 % (39.0-53.0) Mean Corpuscular Volume 82 fL (79-100) Mean Corpuscular Hemoglobin 27 pg (25-35) Mean Corpuscular Hemoglobin Concent 32 g/dL (31-37) Red Cell Distribution Width 16.1 % (11.5-14.5) Platelet Count 311 x10^3/uL (140-400) Neutrophils (%) (Auto) 77 % (31-73) Lymphocytes (%) (Auto) 12 % (24-48) Monocytes (%) (Auto) 10 % (0-9) Eosinophils (%) (Auto) 1 % (0-3) Basophils (%) (Auto) 0 % (0-3) Neutrophils # (Auto) 11.3 x10^3/uL (1.8-7.7) Lymphocytes # (Auto) 1.7 x10^3/uL (1.0-4.8) Monocytes # (Auto) 1.5 x10^3/uL (0.0-1.1) Eosinophils # (Auto) 0.2 x10^3/uL (0.0-0.7) Basophils # (Auto) 0.0 x10^3/uL (0.0-0.2) Sodium Level 127 mmol/L (136-145) Potassium Level 2.9 mmol/L (3.5-5.1) Chloride Level 94 mmol/L (98-107) Carbon Dioxide Level 24 mmol/L (21-32) Anion Gap 9 (6-14) Blood Urea Nitrogen 52 mg/dL (8-26) Creatinine 3.2 mg/dL (0.7-1.3) Estimated GFR (Cockcroft-Gault) 23.1 Glucose Level 153 mg/dL (70-99) Calcium Level 8.5 mg/dL (8.5-10.1) Test 05/12/21 08:00 O2 Saturation 96 % (92-99) Arterial Blood pH 7.40 (7.35-7.45) Arterial Blood pCO2 at Patient Temp 32 mmHg (35-46) Arterial Blood pO2 at Patient Temp 86 mmHg (65-108) Arterial Blood HCO3 19 mmol/L (21-28) Arterial Blood Base Excess -5 mmol/L (-3-3) FiO2 40/vent Micro GRAM STAIN EVALUATION Final Final This specimen is of good quality and is acceptable for routine bacterial culture. Culture results to follow. GRAM NEGATIVE RODS:FEW GRAM POSITIVE COCCI:RARE SQUAMOUS EPI CELL:NONE SEEN PMN (WBCs):MANY Unless otherwise specified, Testing Performed by: [address] [address] For Inquires, the Physician may contact the Microbiology department at [phone] RESPIRATORY CULTURE Preliminary Preliminary No Growth on 05/12/21 at 0900 Unless otherwise specified, Testing Performed by: [address] [id number] For Inquires, the Physician may contact the Microbiology department at [phone] Objective Assessment 1. Febrile illness could be healthcare-associated infection 2. Leukocytosis, on steroids. 3. COVID-19 pneumonia. 4. Acute hypoxic respiratory failure status post intubation. 5. Congestive heart failure, acute on chronic. 6. Acute kidney injury on chronic kidney disease on hemodialysis. 7. Diabetes mellitus 2. 8. Atrial fibrillation. 9. Anemia. 10. Protein-calorie malnutrition. 11. Hypertention Plan Plan of Care 1. Continue cefepime , and zyvox, sputum culture 2. Follow-up labs and cultures 3. Change central line and send cath tip for cultures. 4. Check C. difficile PCR 5. Continue supportive care. 6. Critically ill. Discussed with nursing staff JAD RIVERO MD May 12, 2021 09:58
--- NOTE | 2021-05-12 10:14 | PDOC ---
PROGRESS NOTES Date of Service: DATE: 05/12/21 TIME: 10:13 Chief Complaint Chief Complaint Respiratory failure requiring intubation COVID-19 Acute [place] A. fib SIRS Hypertension with hypertensive urgency Hyperlipidemia CKD Diabetes History of bilateral subclavian stenosis History of marijuana use Severe protein calorie malnutrition History of Present Illness History of Present Illness 05/12/2021 Continue iv cefepime , add zyvox, sputum culture VENT %, 5 of PEEP Mild pulmonary edema with new small right pleural effusion and basilar opacities now on cardene gtt prn Patient seen and examined in the [place] [id number] ICU remains mechanically ventilated IDLA on CKD - ATN 2/2 sepsis/ Hypotension,UOP good,on IV Lasix ; requiring dialysis, Sedated with propofol Dex and fentanyl Chart reviewed Discussed with RN He remains critically ill intubated/sedated cont cardene gtt not able to tolerate PS trial 05/06/21 Change central line and send cath tip for cultures. 05-09 C. difficile PCR JONES FISHMAN MD,ADELSO DASILVA MD, MD ORDERED: BCULT Procedure Result BLOOD CULTURE Preliminary NO GROWTH AFTER 2 DAYS BLOOD CULTURE Preliminary NO GROWTH AFTER 4 DAYS 33 min cc time 05/11/2021 Continue iv cefepime , add zyvox, sputum culture VENT [id number]%, 5 of PEEP Mild pulmonary edema with new small right pleural effusion and basilar opacities now on cardene gtt prn Patient seen and examined in the [place] [id number] ICU remains mechanically ventilated ILDA on CKD - ATN 2/2 sepsis/ Hypotension,UOP good,on IV Lasix ; requiring dialysis, Sedated with propofol Dex and fentanyl Chart reviewed Discussed with RN He remains critically ill intubated/sedated cont cardene gtt not able to tolerate PS trial 05/06/21 Change central line and send cath tip for cultures. 05-09 C. difficile PCR JONES FISHMAN MD,ADELSO DASILVA MD, MD ORDERED: BCULT Procedure Result BLOOD CULTURE Preliminary NO GROWTH AFTER 2 DAYS BLOOD CULTURE Preliminary NO GROWTH AFTER 4 DAYS 36 min cc time 05/10/2021 VENT [id number]%, 5 of PEEP Mild pulmonary edema with new small right pleural effusion and basilar opacities now on cardene gtt prn Patient seen and examined in the [place] [id number] ICU remains mechanically ventilated ILDA on CKD - ATN 2/2 sepsis/ Hypotension,UOP good,on IV Lasix ; requiring dialysis, Sedated with propofol Dex and fentanyl Chart reviewed Discussed with RN He remains critically ill intubated/sedated cont cardene gtt not able to tolerate PS trial 05/06/21 Change central line and send cath tip for cultures. 05-09 C. difficile PCR JONES FISHMAN MD,BRIAN AVILA,ADELSO POTTER ORDERED: BCULT Procedure Result BLOOD CULTURE Preliminary NO GROWTH AFTER 2 DAYS BLOOD CULTURE Preliminary NO GROWTH AFTER 4 DAYS 33 min cc time 05/09/2021 VENT [id number]%, 5 of PEEP Mild pulmonary edema with new small right pleural effusion and basilar opacities now on cardene gtt prn Patient seen and examined in the [place] [address] ICU remains mechanically ventilated ILAD on CKD - ATN 2/2 sepsis/ Hypotension,UOP good,on IV Lasix ; requiring dialysis, Sedated with propofol Dex and fentanyl Chart reviewed Discussed with RN He remains critically ill intubated/sedated cont cardene gtt not able to tolerate PS trial 05/06/21 Change central line and send cath tip for cultures. 05-09 C. difficile PCR JONES FISHMAN MD,BRIAN AVILA,ADELSO POTTER ORDERED: BCULT -------- ---- Procedure Result BLOOD CULTURE Preliminary NO GROWTH AFTER 2 DAYS BLOOD CULTURE Preliminary NO GROWTH AFTER 4 DAYS 37 min cc time 05/08/2021 Currently on 40%, 5 of PEEP now on cardene gtt Patient seen and examined in the [place] [address] ICU remains mechanically ventilated ILDA on CKD - ATN 2/2 sepsis/ Hypotension,UOP good,on IV Lasix ; requiring dialysis, AC/20/500/40 percent with 5 of PEEP Sedated with propofol Dex and fentanyl Chart reviewed Discussed with RN He remains critically ill intubated/sedated cont cardene gtt not able to tolerate PS trial 05/06/21 JONES FIHSMAN MD, CHRISTOPHER S MD SISILLO, SABATO MD ORDERED: BCULT Procedure Result BLOOD CULTURE Preliminary NO GROWTH AFTER 2 DAYS BLOOD CULTURE Preliminary NO GROWTH AFTER 4 DAYS 33 min cc time 05/07/2021 Patient seen and examined in the [place] [address] ICU He remains mechanically ventilated ILDA on CKD - ATN 2/2 sepsis/ Hypotension,UOP good,on IV Lasix ; requiring dialysis, AC/20/500/40 percent with 5 of PEEP Sedated with propofol Dex and fentanyl Chart reviewed Discussed with RN He remains critically ill intubated/sedated maryam dumont gtt not able to tolerate PS trial 05/06/21 JONES FISHMAN MD, CHRISTOPHER S MD SISILLO, SABATO MD ORDERED: BCULT Procedure Result BLOOD CULTURE Preliminary NO GROWTH AFTER 2 DAYS 36 min cc time 05/06/2021 Patient seen and examined in the [place] [address] ICU He remains mechanically ventilated AC/20/500/40 percent with 5 of PEEP Sedated with propofol Dex and fentanyl Chart reviewed Discussed with RN He remains critically ill 05/05/2020 Patient seen and examined in the [place] [address] ICU He remains on the vent AC/20/500/40 percent with 5 of PEEP Discussed with RN Chart reviewed Has SCDs in place Nieves to bedside drainage He remains critically ill 05/04/2021 Patient seen and examined in the [place] [address] ICU Still intubated Sedated with propofol and fentanyl AC/20/500/70 percent with 5 of PEEP On dialysis currently Has SCDs in Nieves to bedside drainage Discussed with RN Chart reviewed 05/03/2021 Patient seen and examined in the [place] [address] ICU He is still intubated AC/20/500/70 percent with 5 of PEEP Has SCDs in place Nieves to bedside drainage Sedated with fentanyl Versed and propofol Discussed are Chart reviewed Remains critically ill 05/02/2021 Patient seen and examined in the [place] [address] ICU He is sedated with propofol fentanyl and Versed Ventilator settings as follow AC/20/500/40 percent with 5 of PEEP Has Nieves to bedside drainage Chart reviewed Discussed with RN He remains critically ill 05/01/2021 Patient seen and examined in the [place] [address] ICU He is still intubated AC/20/500/40 percent with 5 of PEEP In A. fib Sedated with propofol fentanyl and Versed Has a heparin drip Missy with RN Chart reviewed He remains critically 04/30/2020 Patient seen and examined in the [place] [address] ICU He remains on the vent AC/20/500/40 5% with 5 PEEP Currently on dialysis Has OG feeds running Has a Nieves to bedside drainage Sedated with propofol and fentanyl Reviewed chart Discussed with RN He remains critically ill Mr Cunha is a 75 yo male w/ PMHx CAD, HTN, Hyperlipidemia, subclavian steel syndrome, subclavian stenosis s/p left subclavian sent placement complicated by retroperitoneal hematoma s/p evacuation in 08/2015), asthma, BART, CKD, DM2 who presented from home with home health care noted that he was short of breath and valverde with O2 saturations less than 89% as low as 84% not improved with nasal cannulated oxygen placed on CPAP and brought to ED for further care. He was just discharged from the hospital a week ago on April 19, 2021 for abdominal pain and was going for further cardiac testing with outpatient stress testing scheduled on May 28, 2021. Had echocardiogram April 17, 2021 with normal-appearing EF with moderate concentric LVH no significant valvular abnormalities. WBC 20, Hb 10.7, platelets 268, NA 140, K3.8, BUN 21, CR 2.9, glucose 162, albumin 3, troponin I 1.372, NT proBNP 33,318. EKG appears sinus tachycardia rate of 105 bpm with multiple PACs small ST depressions in lead II and V5. TWI in V6. Chest radiograph with diffuse interstitial and alveolar opacities and ET tube 5.8 cm above the leilani. Due to worsening respiratory status ED physician elected to intubate patient. Seen postintubation. Blood pressure little low after propofol bolus, but improved. Significant white frothy sputum per ET tube. Admitted to ICU for further care 04/29/2021: Afebrile, remains on vent at FiO2 45%, PEEP 5. WBC 20.4. Hemodialysis per nephrology. We will continue treatment with empiric antibiotics, remdesivir, and steroids. Continue heparin infusion and supportive care. Critical care time 30 minutes reviewing chart, review labs, review imaging, discussion with RN. 04/28/2021: Afebrile. FiO2 50%, PEEP 5. Nontunneled HD catheter placed yesterday due to worsening kidney function; eGFR 16 (CKD4). Chest x-ray showed unchanged interstitial opacities. Continue empiric antibiotics, steroids, and remdesivir. Continue heparin infusion, and continue to follow cardiology recommendations on new diagnosis of A. fib. Critical care time 30 minutes reviewing chart, review labs, review imaging, discussion with RN. 04/27/2021: Afebrile. On vent with FiO2 50%, PEEP 5. Troponin 2.8 yesterday; probable type II, demand ischemia. New onset A. fib. Continue heparin drip and as needed digoxin, per cardiology. Continue treatment with remdesivir, steroids, and prophylactic antibiotics. CBG 323 this morning; will add basal insulin. Critical care 30 minutes spent reviewing labs, reviewing imaging, reviewing charts, and discussion with RN. 04/26/2021: COVID-19 positive. Febrile overnight that was managed with cooling blankets. On vent with FiO2 50%, PEEP 5. Per cardiology, elevated troponins likely secondary to demand ischemia; continue heparin drip per cardiology. Maintain fluid balance and avoid nephrotoxins. Continue treatment with remdesivir, steroids, and prophylactic antibiotics. 30 minutes critical care time spent reviewing charts, reviewing labs, reviewing imaging, and discussion with RN. 04/25/2021: On vent FiO2 50, PEEP 5. Febrile, T-max 103.3. Patient was initiated on cooling blankets. Procalcitonin 0.13. Continue coverage for hospital-acquired pneumonia with cefepime. MRSA PCR pending. Critical care time 30 minutes spent reviewing charts, reviewing labs, review of imaging, discussion with RN. Vitals Vitals Vital Signs Date Time Temp Pulse Resp B/P (MAP) Pulse Ox O2 Delivery O2 Flow Rate FiO2 05/12/21 09:35 100 Ventilator 05/12/21 08:56 52 108/46 05/12/21 07:00 20 05/12/21 04:00 98.3 98.3 Physical Exam Physical Exam GENERAL: Well-developed and well-nourished male, intubated, sedated. HEENT: Normocephalic, atraumatic, and anicteric. ETT and OGT present. NECK: Right IJ removed, right dialysis catheter present clean HEART: S1, S2. LUNGS: Decreased breath sounds. ABDOMEN: Soft, obese, bowel sounds present. GENITOURINARY: Nieves in place. EXTREMITIES: Edema present. DERMATOLOGIC: Warm, dry, no generalized rash. NEUROLOGIC: Intubated. PSYCHIATRIC: Unable to obtain. General: No acute distress Heart: Regular rate, Normal S1, Normal S2 Abdomen: Other (ND) Extremities: No clubbing, No cyanosis Skin: No rashes, No breakdown, No significant lesion Labs LABS PROCEDURE: CHEST AP ONLY EXAM: Chest, single view. HISTORY: Central line placement. COMPARISON: 05/10/2021 FINDINGS: A frontal view of the chest is obtained. There is an endotracheal tube within the mid trachea. There is a nasogastric tube within the stomach. There are right internal jugular catheters with the tips in the superior cavoatrial junction. There is no pneumothorax. There is stable diffuse left greater than right lower lobe predominant infiltrate and small left greater than right pleural effusions. There is a stable cardiac silhouette. IMPRESSION: 1. Interval right internal jugular central venous catheter placement. The tip is in the superior cavoatrial junction. There is no pneumothorax. The remainder of the support lines and tubes are unchanged. 2. Stable diffuse left lower lobe predominant infiltrate and small pleural effusions. Electronically signed by: Cynthia Shea MD (05/11/2021 10:00 AM) [id number] DICTATED and SIGNED BY: CYNTHIA SHEA MD DATE: 05/11/21 [id number] SPEC #: [id number] PEDRO: 05/04/21 STATUS: COMP REQ #: [id number] RECD: 05/04/[address]: ALAYNA RIVERO MD SOURCE: BLOOD ENTR: 05/04/21-[address]: JASMEET LAM MD [facility]: RACHID GARIBAY MD, PRASHANTH S MD KHAN, AMAN U MD RIFFEL,ADELSO DASILVA MD, MD ORDERED: BCULT Procedure Result BLOOD CULTURE Final NO GROWTH AFTER 5 DAYS --- --------- Laboratory Tests Test 05/11/21 11:48 05/11/21 17:38 05/12/21 00:47 05/12/21 05:00 Glucose (Fingerstick) 197 mg/dL (70-99) 195 mg/dL (70-99) 180 mg/dL (70-99) White Blood Count 14.7 x10^3/uL (4.0-11.0) Red Blood Count 2.57 x10^6/uL (4.30-5.70) Hemoglobin 6.8 g/dL (13.0-17.5) Hematocrit 21.0 % (39.0-53.0) Mean Corpuscular Volume 82 fL (79-100) Mean Corpuscular Hemoglobin 27 pg (25-35) Mean Corpuscular Hemoglobin Concent 32 g/dL (31-37) Red Cell Distribution Width 16.1 % (11.5-14.5) Platelet Count 311 x10^3/uL (140-400) Neutrophils (%) (Auto) 77 % (31-73) Lymphocytes (%) (Auto) 12 % (24-48) Monocytes (%) (Auto) 10 % (0-9) Eosinophils (%) (Auto) 1 % (0-3) Basophils (%) (Auto) 0 % (0-3) Neutrophils # (Auto) 11.3 x10^3/uL (1.8-7.7) Lymphocytes # (Auto) 1.7 x10^3/uL (1.0-4.8) Monocytes # (Auto) 1.5 x10^3/uL (0.0-1.1) Eosinophils # (Auto) 0.2 x10^3/uL (0.0-0.7) Basophils # (Auto) 0.0 x10^3/uL (0.0-0.2) Sodium Level 127 mmol/L (136-145) Potassium Level 2.9 mmol/L (3.5-5.1) Chloride Level 94 mmol/L (98-107) Carbon Dioxide Level 24 mmol/L (21-32) Anion Gap 9 (6-14) Blood Urea Nitrogen 52 mg/dL (8-26) Creatinine 3.2 mg/dL (0.7-1.3) Estimated GFR (Cockcroft-Gault) 23.1 Glucose Level 153 mg/dL (70-99) Calcium Level 8.5 mg/dL (8.5-10.1) Test 05/12/21 08:00 O2 Saturation 96 % (92-99) Arterial Blood pH 7.40 (7.35-7.45) Arterial Blood pCO2 at Patient Temp 32 mmHg (35-46) Arterial Blood pO2 at Patient Temp 86 mmHg (65-108) Arterial Blood HCO3 19 mmol/L (21-28) Arterial Blood Base Excess -5 mmol/L (-3-3) FiO2 40/vent Assessment and Plan Assessmemt and Plan Problems Medical Problems: (1) Elevated troponin Status: Acute (2) Person under investigation for COVID-19 Status: Acute (3) Pulmonary edema Status: Acute Comment Review of Relevant I have reviewed the following items juanita (where applicable) has been applied. Labs Laboratory Tests Test 05/10/21 11:55 05/10/21 17:32 05/11/21 00:07 05/11/21 05:45 Glucose (Fingerstick) 177 mg/dL (70-99) 194 mg/dL (70-99) 152 mg/dL (70-99) 145 mg/dL (70-99) Test 05/11/21 06:30 05/11/21 07:52 05/11/21 09:20 05/11/21 11:48 White Blood Count 16.9 x10^3/uL (4.0-11.0) Red Blood Count 2.94 x10^6/uL (4.30-5.70) Hemoglobin 7.8 g/dL (13.0-17.5) Hematocrit 24.1 % (39.0-53.0) Mean Corpuscular Volume 82 fL (79-100) Mean Corpuscular Hemoglobin 27 pg (25-35) Mean Corpuscular Hemoglobin Concent 33 g/dL (31-37) Red Cell Distribution Width 15.8 % (11.5-14.5) Platelet Count 347 x10^3/uL (140-400) Neutrophils (%) (Auto) 81 % (31-73) Lymphocytes (%) (Auto) 9 % (24-48) Monocytes (%) (Auto) 8 % (0-9) Eosinophils (%) (Auto) 1 % (0-3) Basophils (%) (Auto) 0 % (0-3) Neutrophils # (Auto) 13.7 x10^3/uL (1.8-7.7) Lymphocytes # (Auto) 1.5 x10^3/uL (1.0-4.8) Monocytes # (Auto) 1.4 x10^3/uL (0.0-1.1) Eosinophils # (Auto) 0.2 x10^3/uL (0.0-0.7) Basophils # (Auto) 0.1 x10^3/uL (0.0-0.2) Sodium Level 130 mmol/L (136-145) Potassium Level 3.3 mmol/L (3.5-5.1) Chloride Level 95 mmol/L (98-107) Carbon Dioxide Level 22 mmol/L (21-32) Anion Gap 13 (6-14) Blood Urea Nitrogen 51 mg/dL (8-26) Creatinine 3.0 mg/dL (0.7-1.3) Estimated GFR (Cockcroft-Gault) 24.9 Glucose Level 145 mg/dL (70-99) Calcium Level 8.4 mg/dL (8.5-10.1) O2 Saturation 79 % (92-99) 91 % (92-99) Arterial Blood pH 7.39 (7.35-7.45) 7.40 (7.35-7.45) Arterial Blood pCO2 at Patient Temp 36 mmHg (35-46) 35 mmHg (35-46) Arterial Blood pO2 at Patient Temp 46 mmHg (65-108) 64 mmHg (65-108) Arterial Blood HCO3 21 mmol/L (21-28) 21 mmol/L (21-28) Arterial Blood Base Excess -3 mmol/L (-3-3) -4 mmol/L (-3-3) FiO2 40 40 Glucose (Fingerstick) 197 mg/dL (70-99) Test 05/11/21 17:38 05/12/21 00:47 05/12/21 05:00 05/12/21 08:00 Glucose (Fingerstick) 195 mg/dL (70-99) 180 mg/dL (70-99) White Blood Count 14.7 x10^3/uL (4.0-11.0) Red Blood Count 2.57 x10^6/uL (4.30-5.70) Hemoglobin 6.8 g/dL (13.0-17.5) Hematocrit 21.0 % (39.0-53.0) Mean Corpuscular Volume 82 fL (79-100) Mean Corpuscular Hemoglobin 27 pg (25-35) Mean Corpuscular Hemoglobin Concent 32 g/dL (31-37) Red Cell Distribution Width 16.1 % (11.5-14.5) Platelet Count 311 x10^3/uL (140-400) Neutrophils (%) (Auto) 77 % (31-73) Lymphocytes (%) (Auto) 12 % (24-48) Monocytes (%) (Auto) 10 % (0-9) Eosinophils (%) (Auto) 1 % (0-3) Basophils (%) (Auto) 0 % (0-3) Neutrophils # (Auto) 11.3 x10^3/uL (1.8-7.7) Lymphocytes # (Auto) 1.7 x10^3/uL (1.0-4.8) Monocytes # (Auto) 1.5 x10^3/uL (0.0-1.1) Eosinophils # (Auto) 0.2 x10^3/uL (0.0-0.7) Basophils # (Auto) 0.0 x10^3/uL (0.0-0.2) Sodium Level 127 mmol/L (136-145) Potassium Level 2.9 mmol/L (3.5-5.1) Chloride Level 94 mmol/L (98-107) Carbon Dioxide Level 24 mmol/L (21-32) Anion Gap 9 (6-14) Blood Urea Nitrogen 52 mg/dL (8-26) Creatinine 3.2 mg/dL (0.7-1.3) Estimated GFR (Cockcroft-Gault) 23.1 Glucose Level 153 mg/dL (70-99) Calcium Level 8.5 mg/dL (8.5-10.1) O2 Saturation 96 % (92-99) Arterial Blood pH 7.40 (7.35-7.45) Arterial Blood pCO2 at Patient Temp 32 mmHg (35-46) Arterial Blood pO2 at Patient Temp 86 mmHg (65-108) Arterial Blood HCO3 19 mmol/L (21-28) Arterial Blood Base Excess -5 mmol/L (-3-3) FiO2 40/vent Laboratory Tests Test 05/11/21 11:48 05/11/21 17:38 05/12/21 00:47 05/12/21 05:00 Glucose (Fingerstick) 197 mg/dL (70-99) 195 mg/dL (70-99) 180 mg/dL (70-99) White Blood Count 14.7 x10^3/uL (4.0-11.0) Red Blood Count 2.57 x10^6/uL (4.30-5.70) Hemoglobin 6.8 g/dL (13.0-17.5) Hematocrit 21.0 % (39.0-53.0) Mean Corpuscular Volume 82 fL (79-100) Mean Corpuscular Hemoglobin 27 pg (25-35) Mean Corpuscular Hemoglobin Concent 32 g/dL (31-37) Red Cell Distribution Width 16.1 % (11.5-14.5) Platelet Count 311 x10^3/uL (140-400) Neutrophils (%) (Auto) 77 % (31-73) Lymphocytes (%) (Auto) 12 % (24-48) Monocytes (%) (Auto) 10 % (0-9) Eosinophils (%) (Auto) 1 % (0-3) Basophils (%) (Auto) 0 % (0-3) Neutrophils # (Auto) 11.3 x10^3/uL (1.8-7.7) Lymphocytes # (Auto) 1.7 x10^3/uL (1.0-4.8) Monocytes # (Auto) 1.5 x10^3/uL (0.0-1.1) Eosinophils # (Auto) 0.2 x10^3/uL (0.0-0.7) Basophils # (Auto) 0.0 x10^3/uL (0.0-0.2) Sodium Level 127 mmol/L (136-145) Potassium Level 2.9 mmol/L (3.5-5.1) Chloride Level 94 mmol/L (98-107) Carbon Dioxide Level 24 mmol/L (21-32) Anion Gap 9 (6-14) Blood Urea Nitrogen 52 mg/dL (8-26) Creatinine 3.2 mg/dL (0.7-1.3) Estimated GFR (Cockcroft-Gault) 23.1 Glucose Level 153 mg/dL (70-99) Calcium Level 8.5 mg/dL (8.5-10.1) Test 05/12/21 08:00 O2 Saturation 96 % (92-99) Arterial Blood pH 7.40 (7.35-7.45) Arterial Blood pCO2 at Patient Temp 32 mmHg (35-46) Arterial Blood pO2 at Patient Temp 86 mmHg (65-108) Arterial Blood HCO3 19 mmol/L (21-28) Arterial Blood Base Excess -5 mmol/L (-3-3) FiO2 40/vent Microbiology 05/11/21 Gram Stain Evaluation - Final, Resulted 05/11/21 Respiratory Culture - Preliminary, Resulted 05/04/21 Gram Stain - Final, Complete 05/04/21 Aerobic Culture - Final, Complete 05/04/21 Blood Culture - Final, Complete NO GROWTH AFTER 5 DAYS Medications Current Medications Propofol 100 ml @ As Directed STK-MED ONCE IV ; Start 04/24/21 at 12:36; Stop 04/24/21 at 12:36; Status DC Etomidate (Amidate) 20 mg STK-MED ONCE IV ; Start 04/24/21 at 13:38; Stop 04/24/21 at 13:38; Status DC Succinylcholine Chloride (Anectine) 200 mg STK-MED ONCE .ROUTE ; Start 04/24/21 at 13:38; Stop 04/24/21 at 13:38; Status DC Fentanyl Citrate (Fentanyl 2ml Vial) 50 mcg PRN Q1HR PRN IV PAIN; Start 04/24/21 at 14:00; Stop 04/24/21 at 14:14; Status DC Acetaminophen (Tylenol) 650 mg PRN Q6HRS PRN PO Headaches, Temp > 101.5' Last administered on 04/25/21at 17:31; Start 04/24/21 at 14:00 Ondansetron HCl (Zofran) 4 mg PRN Q6HRS PRN IVP NAUSEA/VOMITING; Start 04/24/21 at 14:00; Status Cancel Sodium Chloride (Normal Saline Flush) 3 ml QSHIFT PRN IV AFTER MEDS AND BLOOD DRAWS; Start 04/24/21 at 14:00 Fentanyl Citrate (Fentanyl 2ml Vial) 25 mcg PRN Q1HR PRN IV SEVERE PAIN 7-10; Start 04/24/21 at 14:00; Stop 04/24/21 at 14:14; Status DC Bisacodyl (Dulcolax Supp) 10 mg PRN DAILY PRN AL CONSTIPATION; Start 04/24/21 at 14:00 Fentanyl Citrate 30 ml @ 0 mls/hr CONT PRN IV SEE PROTOCOL; Start 04/24/21 at 14:00; Stop 04/24/21 at 14:12; Status DC Propofol 100 ml @ 0 mls/hr CONT PRN IV PER PROTOCOL Last administered on 04/24/21at 15:12; Start 04/24/21 at 14:00; Stop 04/24/21 at 15:19; Status DC Chlorhexidine Gluconate (Peridex) 15 ml BID MM Last administered on 04/24/21at 20:49; Start 04/24/21 at 21:00; Stop 04/25/21 at 11:19; Status DC Acetaminophen (Tylenol) 650 mg PRN Q6HRS PRN PO Headaches, Temp > 101.5'; Start 04/24/21 at 14:00; Status Cancel Ondansetron HCl (Zofran) 4 mg PRN Q6HRS PRN IVP NAUSEA/VOMITING; Start 04/24/21 at 14:00 Fentanyl Citrate (Fentanyl 2ml Vial) 25 mcg PRN Q1HR PRN IV SEVERE PAIN 7-10 Last administered on 04/24/21at 16:39; Start 04/24/21 at 14:00 Fentanyl Citrate 30 ml @ 0 mls/hr CONT PRN IV SEE PROTOCOL Last administered on 05/12/21 00:12; Start 04/24/21 at 14:00 Aspirin (Ecotrin) 81 mg DAILYWBKFT PO Last administered on 05/02/21at 07:20; Start 04/25/21 at 08:00; Stop 05/03/21 at 09:56; Status DC Carvedilol (Coreg) 37.5 mg BIDWMEALS PO ; Start 04/24/21 at 17:00; Stop 04/24/21 at 16:17; Status DC Montelukast Sodium (Singulair) 10 mg HS PO Last administered on 05/11/21 20:51; Start 04/24/21 at 21:00 Atorvastatin Calcium (Lipitor) 80 mg QHS PO Last administered on 05/11/21 20:51; Start 04/24/21 at 21:00 Heparin Sodium (Porcine) (Heparin Sodium) 5,000 unit Q8HRS SQ ; Start 04/24/21 at 22:00; Status Cancel Furosemide (Lasix) 40 mg 1X ONCE IVP Last administered on 04/24/21at 16:45; Start 04/24/21 at 15:15; Stop 04/24/21 at 15:19; Status DC Propofol 100 ml @ 0 mls/hr CONT PRN IV PER PROTOCOL Last administered on 05/12/21at 09:27; Start 04/24/21 at 15:30 Carvedilol (Coreg) 3.125 mg BIDWMEALS PO Last administered on 04/25/21 09:23; Start 04/24/21 at 17:00; Stop 04/25/21 at 15:42; Status DC Cefepime HCl (Maxipime) 2 gm 1X ONCE IVP Last administered on 04/24/21at 18:27; Start 04/24/21 at 16:30; Stop 04/24/21 at 16:31; Status DC Insulin Human Lispro (HumaLOG) 0-9 UNITS Q6HRS SQ Last administered on 05/03/21at 12:24; Start 04/24/21 at 18:00; Stop 05/03/21 at 13:51; Status DC Dextrose (Dextrose 50%-Water Syringe) 12.5 gm PRN Q15MIN PRN IV SEE COMMENTS Last administered on 05/03/21at 04:59; Start 04/24/21 at 16:30; Stop 05/03/21 at 13:54; Status DC Heparin Sodium/ Dextrose 250 ml @ 0 mls/hr CONT PRN IV PER PROTOCOL Last administered on 05/01/21at 05:10; Start 04/24/21 at 16:45; Stop 05/01/21 at 12:32; Status DC Heparin Sodium (Porcine) (Heparin Sodium) 3,200 unit PRN Q6HRS PRN IV FOR UFH LEVEL LESS THAN 0.2 Last administered on 04/24/21at 23:32; Start 04/24/21 at 16:45; Stop 05/01/21 at 12:32; Status DC Cefepime HCl (Maxipime) 1 gm Q12HR IVP Last administered on 04/27/21at 08:09; Start 04/25/21 at 09:00; Stop 04/27/21 at 09:17; Status DC Furosemide (Lasix) 40 mg 1X ONCE IVP ; Start 04/25/21 at 11:30; Stop 04/25/21 at 11:31; Status DC Metoprolol Tartrate (Lopressor Vial) 5 mg 1X ONCE IVP Last administered on 04/25/21at 11:27; Start 04/25/21 at 11:30; Stop 04/25/21 at 11:31; Status DC Info (Anti-Coagulation Monitoring By Pharmacy) 1 each PRN DAILY PRN MC PER PROTOCOL Last administered on 04/26/21at 08:51; Start 04/25/21 at 13:00; Stop 05/02/21 at 07:36; Status DC Digoxin (Lanoxin) 500 mcg 1X ONCE IV Last administered on 04/25/21at 14:52; Start 04/25/21 at 14:45; Stop 04/25/21 at 14:46; Status DC Hydralazine HCl (Apresoline Inj) 10 mg PRN Q4HRS PRN IVP ELEVATED BP, 1ST CHOICE Last administered on 05/11/21at 13:19; Start 04/25/21 at 14:45 Metoprolol Tartrate (Lopressor Vial) 5 mg Q6HRS IVP Last administered on 05/12/21at 04:47; Start 04/25/21 at 18:00 Dexamethasone Sodium Phosphate (Decadron) 6 mg DAILY IVP Last administered on 05/06/21at 08:38; Start 04/25/21 at 17:00; Stop 05/07/21 at 09:18; Status DC Remdesivir 200 mg/ Sodium Chloride 210 ml @ 210 mls/hr 1X ONCE IV Last administered on 04/25/21at 17:09; Start 04/25/21 at 17:30; Stop 04/25/21 at 18:29; Status DC Remdesivir 100 mg/ Sodium Chloride 230 ml @ 460 mls/hr Q24H IV Last administered on 04/29/21at 13:51; Start 04/26/21 at 17:30; Stop 04/29/21 at 17:59; Status DC Midazolam HCl 100 ml @ 0 mls/hr CONT PRN IV SEE PROTOCOL Last administered on 05/02/21at 19:58; Start 04/26/21 at 07:00 Pantoprazole Sodium (PROTONIX VIAL for IV PUSH) 40 mg DAILYAC IVP Last administered on 05/12/21at 08:54; Start 04/26/21 at 09:30 Norepinephrine Bitartrate 8 mg/ Dextrose 258 ml @ 25.349 mls/ hr CONT PRN IV PER PROTOCOL Last administered on 04/26/21at 17:53; Start 04/26/21 at 12:15; Stop 05/02/21 at 20:53; Status DC Digoxin (Lanoxin) 250 mcg 1X ONCE IV Last administered on 04/26/21at 15:02; Start 04/26/21 at 13:00; Stop 04/26/21 at 13:05; Status DC Amiodarone HCl 150 mg/Dextrose 103 ml @ 618 mls/hr 1X ONCE IV Last administered on 04/27/21at 02:30; Start 04/27/21 at 02:30; Stop 04/27/21 at 02:39; Status DC Amiodarone HCl 450 mg/Dextrose 259 ml @ 33 mls/hr CONT PRN IV SEE I/O RECORD; Start 04/27/21 at 02:30; Stop 04/30/21 at 07:56; Status DC Insulin Glargine (Lantus Syringe) 25 unit QHS SQ Last administered on 05/02/21at 21:23; Start 04/27/21 at 21:00; Stop 05/03/21 at 13:45; Status DC Cefepime HCl (Maxipime) 1 gm Q24H IVP Last administered on 05/03/21at 10:02; Start 04/28/21 at 09:30; Stop 05/03/21 at 13:19; Status DC Sodium Bicarbonate (Sodium Bicarb Adult 8.4% Syr) 50 meq 1X ONCE IV Last ad ministered on 04/27/21at 09:50; Start 04/27/21 at 09:45; Stop 04/27/21 at 09:46; Status DC Lidocaine HCl (Buffered Lidocaine 1%) 3 ml STK-MED ONCE .ROUTE ; Start 04/27/21 at 10:57; Stop 04/27/21 at 10:58; Status DC Amiodarone HCl (Cordarone) 200 mg DAILY PO ; Start 04/27/21 at 12:00; Stop 04/27/21 at 12:29; Status DC Lidocaine HCl (Buffered Lidocaine 1%) 3 ml 1X ONCE INJ Last administered on 04/27/21at 11:15; Start 04/27/21 at 11:15; Stop 04/27/21 at 11:16; Status DC Amiodarone HCl (Cordarone) 200 mg DAILY PO Last administered on 05/12/21at 08:56; Start 04/28/21 at 09:00 Sodium Chloride 1,000 ml @ 1,000 mls/hr Q1H PRN IV hypotension; Start 04/28/21 at 11:00; Stop 04/28/21 at 16:59; Status DC Albumin Human 200 ml @ 200 mls/hr 1X PRN PRN IV Hypotension; Start 04/28/21 at 11:00; Stop 04/28/21 at 16:59; Status DC Sodium Chloride (Normal Saline Flush) 10 ml 1X PRN PRN IV AP catheter pack; Start 04/28/21 at 11:00; Stop 04/29/21 at 10:59; Status DC Sodium Chloride (Normal Saline Flush) 10 ml 1X PRN PRN IV SHIP SURVEYOR catheter pack; Start 04/28/21 at 11:00; Stop 04/29/21 at 10:59; Status DC Sodium Chloride 1,000 ml @ 400 mls/hr Q2H30M PRN IV PATENCY; Start 04/28/21 at 11:00; Stop 04/28/21 at 22:59; Status DC Info (PHARMACY MONITORING -- do not chart) 1 each PRN DAILY PRN MC SEE COMMENTS; Start 04/28/21 at 11:00; Status UNV Info (PHARMACY MONITORING -- do not chart) 1 each PRN DAILY PRN MC SEE COMMENTS; Start 04/28/21 at 11:00; Stop 04/30/21 at 22:39; Status DC Magnesium Sulfate 50 ml @ 25 mls/hr PRN DAILY PRN IV for Mag < 1.7 on am labs; Start 04/29/21 at 10:45 Vecuronium [place] (Norcuron Bolus) 6 mg PRN Q6HRS PRN IV VENTILATOR COMPLIANCE Last administered on 05/11/21at 11:59; Start 04/30/21 at 11:15 Info (PHARMACY MONITORING -- do not chart) 1 each PRN DAILY PRN MC SEE COMMENTS; Start 04/30/21 at 12:30; Status Cancel Labetalol HCl (Normodyne Iv Push) 20 mg PRN Q2HR PRN IVP HYPERTENSION, 2ND CHOICE Last administered on 05/11/21at 13:35; Start 05/01/21 at 12:30 Heparin Sodium (Porcine) (Heparin Sodium) 5,000 unit Q8HRS SQ Last administered on 05/12/21at 04:48; Start 05/01/21 at 14:00 Furosemide (Lasix) 80 mg 1X ONCE IVP Last administered on 05/02/21at 10:45; Start 05/02/21 at 10:45; Stop 05/02/21 at 10:46; Status DC Furosemide (Lasix) 40 mg Q8HRS IVP Last administered on 05/11/21at 22:06; Start 05/02/21 at 14:00 Sodium Chloride 1,000 ml @ 1,000 mls/hr Q1H PRN IV hypotension; Start 05/02/21 at 11:30; Stop 05/02/21 at 17:29; Status DC Albumin Human 200 ml @ 200 mls/hr 1X PRN PRN IV Hypotension; Start 05/02/21 at 11:30; Stop 05/02/21 at 17:29; Status DC Sodium Chloride (Normal Saline Flush) 10 ml 1X PRN PRN IV AP catheter pack; Start 05/02/21 at 11:30; Stop 05/02/21 at 18:00; Status DC Sodium Chloride (Normal Saline Flush) 10 ml 1X PRN PRN IV SHIP SURVEYOR catheter pack; Start 05/02/21 at 11:30; Stop 05/02/21 at 18:00; Status DC Sodium Chloride 1,000 ml @ 400 mls/hr Q2H30M PRN IV PATENCY; Start 05/02/21 at 11:30; Stop 05/02/21 at 23:29; Status DC Info (PHARMACY MONITORING -- do not chart) 1 each PRN DAILY PRN MC SEE COMMENTS; Start 05/02/21 at 11:30; Status UNV Info (PHARMACY MONITORING -- do not chart) 1 each PRN DAILY PRN MC SEE COMMENTS; Start 05/02/21 at 11:30; Status UNV Norepinephrine Bitartrate 8 mg/ Dextrose 258 ml @ 25.852 mls/ hr CONT PRN IV PER PROTOCOL Last administered on 05/02/21at 21:22; Start 05/02/21 at 21:00; Stop 05/09/21 at 06:10; Status DC Dextrose 1,000 ml @ 50 mls/hr Q20H IV Last administered on 05/03/21at 05:15; Start 05/03/21 at 05:15; Stop 05/03/21 at 13:53; Status DC Aspirin (Aspirin Chewable) 81 mg DAILYWBKFT PO Last administered on 05/12/21at 08:55; Start 05/03/21 at 10:00 Insulin Glargine (Lantus Syringe) 10 unit QHS SQ Last administered on 05/11/21at 21:59; Start 05/03/21 at 21:00 Insulin Human Lispro (HumaLOG) 0-5 UNITS Q6HRS SQ Last administered on 05/12/21at 06:11; Start 05/03/21 at 18:00 Dextrose (Dextrose 50%-Water Syringe) 12.5 gm PRN Q15MIN PRN IV SEE COMMENTS; Start 05/03/21 at 14:00 Sodium Chloride 1,000 ml @ 1,000 mls/hr Q1H PRN IV hypotension; Start 05/04/21 at 07:30; Stop 05/04/21 at 13:29; Status DC Albumin Human 200 ml @ 200 mls/hr 1X PRN PRN IV Hypotension Last administered on 05/04/21at 10:46; Start 05/04/21 at 07:30; Stop 05/04/21 at 13:29; Status DC Sodium Chloride (Normal Saline Flush) 10 ml 1X PRN PRN IV AP catheter pack; Start 05/04/21 at 07:30; Stop 05/05/21 at 07:29; Status DC Sodium Chloride (Normal Saline Flush) 10 ml 1X PRN PRN IV SHIP SURVEYOR catheter pack; Start 05/04/21 at 07:30; Stop 05/05/21 at 07:29; Status DC Sodium Chloride 1,000 ml @ 400 mls/hr Q2H30M PRN IV PATENCY; Start 05/04/21 at 07:30; Stop 05/04/21 at 19:29; Status DC Info (PHARMACY MONITORING -- do not chart) 1 each PRN DAILY PRN MC SEE COMMENTS; Start 05/04/21 at 07:30; Status UNV Info (PHARMACY MONITORING -- do not chart) 1 each PRN DAILY PRN MC SEE COMMENTS; Start 05/04/21 at 07:30; Stop 05/07/21 at 08:47; Status DC Dexmedetomidine HCl 400 mcg/ Sodium Chloride 100 ml @ 0 mls/hr CONT PRN IV PER PROTOCOL Last administered on 05/12/21at 04:42; Start 05/04/21 at 10:30 Cefepime HCl (Maxipime) 1 gm Q24H IVP Last administered on 05/10/21at 16:31; Start 05/04/21 at 16:00; Stop 05/11/21 at 07:24; Status DC Daptomycin 600 mg/ Sodium Chloride 50 ml @ 100 mls/hr Q48H IV Last administered on 05/04/21at 15:24; Start 05/04/21 at 15:00; Stop 05/06/21 at 08:07; Status DC Potassium Chloride/Water 100 ml @ 100 mls/hr 1X ONCE IV Last administered on 05/06/21at 09:14; Start 05/06/21 at 08:30; Stop 05/06/21 at 09:29; Status DC Nicardipine HCl 50 mg/Sodium Chloride 250 ml @ 25 mls/hr CONT PRN IV SEE I/O RECORD Last administered on 05/08/21at 21:30; Start 05/06/21 at 18:45 Sodium Chloride 1,000 ml @ 1,000 mls/hr Q1H PRN IV hypotension; Start 05/07/21 at 08:45; Stop 05/07/21 at 14:44; Status DC Albumin Human 200 ml @ 200 mls/hr 1X PRN PRN IV Hypotension Last administered on 05/07/21at 11:41; Start 05/07/21 at 08:45; Stop 05/07/21 at 14:44; Status DC Sodium Chloride 1,000 ml @ 400 mls/hr Q2H30M PRN IV PATENCY; Start 05/07/21 at 08:45; Stop 05/07/21 at 20:44; Status DC Info (PHARMACY MONITORING -- do not chart) 1 each PRN DAILY PRN MC SEE COMMENTS; Start 05/07/21 at 08:45; Status UNV Info (PHARMACY MONITORING -- do not chart) 1 each PRN DAILY PRN MC SEE COMMENTS; Start 05/07/21 at 08:45 Albumin Human 100 ml @ 100 mls/hr 1X ONCE IV ; Start 05/07/21 at 11:45; Stop 05/07/21 at 12:44; Status DC Multi-Ingred Cream/Lotion/Oil/ Oint (Artificial Tears Eye Ointment) 1 danielito PRN Q1HR PRN OU DRY EYE Last administered on 05/10/21at 20:51; Start 05/07/21 at 16:00 Potassium Chloride/Water 100 ml @ 100 mls/hr Q1H IV Last administered on 1at 11:54; Start 05/08/21 at 11:00; Stop 05/08/21 at 12:59; Status DC Potassium Chloride/Water 100 ml @ 100 mls/hr Q1H IV Last administered on 05/09/21at 11:43; Start 05/09/21 at 10:00; Stop 05/09/21 at 11:59; Status DC Potassium Chloride/Water 100 ml @ 100 mls/hr Q1H IV Last administered on 05/10/21at 10:56; Start 05/10/21 at 10:00; Stop 05/10/21 at 11:59; Status DC Hydralazine HCl (Apresoline) 25 mg QID PO Last administered on 05/12/21at 08:55; Start 05/10/21 at 10:00 Amlodipine Besylate (Norvasc) 5 mg DAILY PO Last administered on 05/12/21at 08:55; Start 05/10/21 at 10:00 Magnesium Sulfate 50 ml @ 25 mls/hr 1X ONCE IV Last administered on 05/10/21at 14:36; Start 05/10/21 at 13:30; Stop 05/10/21 at 15:29; Status DC Linezolid/Dextrose 300 ml @ 300 mls/hr Q12HR IV Last administered on 05/11/21at 20:51; Start 05/11/21 at 09:00 Meropenem 500 mg/ Sodium Chloride 50 ml @ 100 mls/hr Q8HRS IV Last administered on 05/12/21at 04:46; Start 05/11/21 at 14:00 Potassium Chloride/Water 100 ml @ 100 mls/hr 1X ONCE IV Last administered on 05/12/21at 08:55; Start 05/12/21 at 07:00; Stop 05/12/21 at 07:59; Status DC Active Scripts Active Glyburide 2.5 Mg Tablet 1 Tab PO DAILY 14 Days Polyethylene Glycol 3350 17 Gm Powd.pack 17 Gm PO DAILY 14 Days Dok (Docusate Sodium) 100 Mg Capsule 100 Mg PO PRN DAILY PRN 30 Days Bisacodyl 5 Mg Tablet.dr 5 Mg PO PRN DAILY PRN 14 Days Acetaminophen 325 Mg Tablet 650 Mg PO PRN Q4HRS PRN 14 Days Aspirin Ec (Aspirin) 81 Mg Tablet.dr 81 Mg PO DAILYWBKFT 30 Days Hydralazine Hcl 25 Mg Tablet 25 Mg PO QID 30 Days Reported Fenofibrate 54 Mg Tablet 1 Tab PO DAILY Potassium Chloride (Potassium Chloride) 20 Meq Tablet.er 20 Meq PO DAILY Coreg (Carvedilol) 12.5 Mg Tablet 37.5 Mg PO BIDWMEALS Rosuvastatin Calcium 40 Mg Tablet 40 Mg PO QHS Gabapentin (Gabapentin) 100 Mg Capsule 200 Mg PO BID Montelukast Sodium Tablet (Montelukast Sodium) 10 Mg Tablet 10 Mg PO HS Protonix (Pantoprazole Sodium) 20 Mg Tablet.dr 2 Tab PO DAILY Amlodipine Besylate 5 Mg Tablet 5 Mg PO DAILY Furosemide 40 Mg Tablet 1 Tab PO DAILY Proair Hfa Inhaler (Albuterol Sulfate) 8.5 Gm Hfa.aer.ad 2 Puff IH PRN Q4-6HRS PRN 21 Days Advair 100-50 Diskus (Fluticasone/Salmeterol) 1 Each Disk.w.dev 1 Puff IH BID Vitals/I & O Vital Sign - Last 24 Hours 05/11/21 05/11/21 05/11/21 05/11/21 11:00 11:10 11:59 12:00 Temp 98.8 98.8 Pulse 96 104 106 Resp 20 30 B/P (MAP) 170/83 (112) 170/83 151/74 (99) Pulse Ox 100 100 100 O2 Delivery Ventilator Ventilator Ventilator 05/11/21 05/11/21 05/11/21 05/11/21 12:00 13:00 13:18 13:19 Pulse 104 106 96 Resp 30 B/P (MAP) 169/78 (108) 151/74 212/100 Pulse Ox 97 O2 Delivery Mechanical Ventilator Ventilator 05/11/21 05/11/21 05/11/21 05/11/21 13:20 13:35 13:53 14:00 Pulse 103 88 Resp 20 26 B/P (MAP) 169/78 107/44 (65) Pulse Ox 98 98 97 O2 Delivery Ventilator Ventilator Ventilator 05/11/21 05/11/21 05/11/21 05/11/21 14:23 15:00 15:30 16:00 Temp 98.9 98.9 Pulse 95 75 Resp 20 26 20 B/P (MAP) 135/59 (84) 98/44 (62) Pulse Ox 97 97 98 99 O2 Delivery Ventilator Ventilator Ventilator Ventilator 05/11/21 05/11/21 05/11/21 05/11/21 16:00 17:00 17:00 17:39 Pulse 76 80 Resp 23 B/P (MAP) 94/48 110/51 (70) Pulse Ox 100 100 O2 Delivery Mechanical Ventilator Ventilator Ventilator 05/11/21 05/11/21 05/11/21 05/11/21 17:48 18:00 19:17 20:00 Temp 98.6 98.6 Pulse 78 78 70 62 Resp 20 20 20 B/P (MAP) 94/48 122/55 (77) 105/46 (65) 90/43 (59) Pulse Ox 100 100 100 O2 Delivery Ventilator Ventilator Ventilator 05/11/21 05/11/21 05/11/21 05/11/21 20:00 20:50 21:00 21:05 Pulse 67 63 Resp 20 B/P (MAP) 99/45 123/51 (75) Pulse Ox 100 100 O2 Delivery Mechanical Ventilator Ventilator Ventilator 05/11/21 05/11/21 05/11/21 05/12/21 22:04 23:02 23:59 00:12 Pulse 65 57 Resp 20 20 20 B/P (MAP) 131/56 (81) 102/46 (64) Pulse Ox 100 100 100 O2 Delivery Ventilator Ventilator Mechanical Ventilator Ventilator 05/12/21 05/12/21 05/12/21 05/12/21 00:23 00:42 00:42 01:03 Temp 98.1 98.1 Pulse 58 64 Resp 20 20 20 B/P (MAP) 118/51 (73) 147/60 (89) Pulse Ox 100 100 100 100 O2 Delivery Ventilator Ventilator Ventilator Ventilator 05/12/21 05/12/21 05/12/21 05/12/21 01:07 02:13 02:58 03:42 Pulse 64 61 52 Resp 20 20 B/P (MAP) 147/60 149/57 (87) 102/45 (64) Pulse Ox 100 100 100 O2 Delivery Ventilator Ventilator Ventilator 05/12/21 05/12/21 05/12/21 05/12/21 03:47 04:00 04:47 05:14 Temp 98.3 98.3 Pulse 51 53 61 Resp 20 20 B/P (MAP) 110/46 (67) 116/50 148/60 (89) Pulse Ox 100 100 O2 Delivery Mechanical Ventilator Ventilator Ventilator 05/12/21 05/12/21 05/12/21 05/12/21 06:10 07:00 07:14 08:55 Pulse 58 52 52 Resp 20 20 B/P (MAP) 150/58 (88) 108/46 (66) 108/46 Pulse Ox 100 100 100 O2 Delivery Ventilator Ventilator Ventilator 05/12/21 05/12/21 05/12/21 08:55 08:56 09:35 Pulse 52 52 B/P (MAP) 108/46 108/46 Pulse Ox 100 O2 Delivery Ventilator Intake and Output 05/11/21 05/11/21 05/12/21 15:00 23:00 07:00 Intake Total 870 ml 1882 ml 1292 ml Output Total 725 ml 495 ml 625 ml Balance 145 ml 1387 ml 667 ml Justicifation of Admission Dx: Justifications for Admission: Justification of Admission Dx: Yes Aspiration Pneumonia: Hemodynamic Instability ALBA SWAIN MD May 12, 2021 10:14
--- NOTE | 2021-05-12 11:30 | PDOC ---
DATE OF SERVICE DATE: 05/12/21 TIME: 11:29 SUBJECTIVE ROS Remains intubated No Overnight concerns OBJECTIVE Vital Signs Vital Signs Date Time Temp Pulse Resp B/P (MAP) Pulse Ox O2 Delivery O2 Flow Rate FiO2 05/12/21 10:00 80 28 189/66 (107) 99 Ventilator 05/12/21 08:00 98.4 98.4 I & 0 Intake and Output 05/12/21 07:00 Intake Total 4044 ml Output Total 1845 ml Balance 2199 ml IV Total 1735 ml Tube Feeding 1871 ml Other 438 ml Output Urine Total 1845 ml PHYSICAL EXAM Physical Exam GENERAL: intubated, HEENT: anicteric. ETT and OGT present. NECK: , right dialysis catheter+, HEART: S1, S2. LUNGS: Decreased breath sounds. ABDOMEN: Soft,bowel sounds present. GENITOURINARY: Nieves in place. EXTREMITIES: Edema present. DERMATOLOGIC: Warm, dry, no generalized rash. NEUROLOGIC: Intubated. PSYCHIATRIC: Unable to obtain. 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 Last HD was Friday . Clearance not improving as expected . Dialyssi today, discussed treatment plan with [facility] HypoKalemia- , 2/2 furosemide . 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 Recent CT Atrophic appearance of the right kidney. COVID-19 positive - Abnormal CT chest with bilateral diffuse interstitial infiltrates without any significant pleural effusion. Acute respiratory failure with Hypoxia Intubated ; CxR Mild pulmonary edema with new small right pleural effusion and basilar opacities. Unchanged small left pleural effusion and basilar opacities. Atrial Fib- per Cardiology Cholelithiasis Anemia . BETTY held 2/2 Hypercoagulable state Severe HypoAlbuminemia DM II Hypotension - Low BP, at presentation , resolved; Low again this morning, not requiring pressor support HTN- On antihypertensives @ home NSTEMI - possibly demand ischemia SIRS - likely sepsis from HCAP H/o bilateral Subclavian stenosis s/p left subclavian sent placement complicated by retroperitoneal hematoma s/p evacuation in 08/2015. COMMENT/RELEVANT DATA Meds Current Medications Medications (Trade) Dose Ordered Sig/Jodie Start Time Stop Time Status Last Admin Dose Admin Acetaminophen (Tylenol) 650 mg PRN Q6HRS PRN 04/24/21 14:00 Cancel Albumin Human 100 ml @ 100 mls/hr 1X ONCE 05/07/21 11:45 05/07/21 12:44 DC Amiodarone HCl (Cordarone) 200 mg DAILY 04/28/21 09:00 05/12/21 08:56 200 MG Amiodarone HCl 150 mg/Dextrose 103 ml @ 618 mls/hr 1X ONCE 04/27/21 02:30 04/27/21 02:39 DC 04/27/21 02:30 618 MLS/HR Amiodarone HCl 450 mg/Dextrose 259 ml @ 33 mls/hr CONT PRN 04/27/21 02:30 04/30/21 07:56 DC Amlodipine Besylate (Norvasc) 5 mg DAILY 05/10/21 10:00 05/12/21 08:55 5 MG Aspirin (Aspirin Chewable) 81 mg DAILYWBKFT 05/03/21 10:00 05/12/21 08:55 81 MG Aspirin (Ecotrin) 81 mg DAILYWBKFT 04/25/21 08:00 05/03/21 09:56 DC 05/02/21 07:20 81 MG Atorvastatin Calcium (Lipitor) 80 mg QHS 04/24/21 21:00 05/11/21 20:51 80 MG Bisacodyl (Dulcolax Supp) 10 mg PRN DAILY PRN 04/24/21 14:00 Carvedilol (Coreg) 3.125 mg BIDWMEALS 04/24/21 17:00 04/25/21 15:42 DC 04/25/21 09:23 3.125 MG Cefepime HCl (Maxipime) 1 gm Q24H 05/04/21 16:00 05/11/21 07:24 DC 05/10/21 16:31 1 GM Chlorhexidine Gluconate (Peridex) 15 ml BID 04/24/21 21:00 04/25/21 11:19 DC 04/24/21 20:49 15 ML Daptomycin 600 mg/ Sodium Chloride 50 ml @ 100 mls/hr Q48H 05/04/21 15:00 05/06/21 08:07 DC 05/04/21 15:24 100 MLS/HR Dexamethasone Sodium Phosphate (Decadron) 6 mg DAILY 04/25/21 17:00 05/07/21 09:18 DC 05/06/21 08:38 6 MG Dexmedetomidine HCl 400 mcg/ Sodium Chloride 100 ml @ 0 mls/hr CONT PRN 05/04/21 10:30 05/12/21 04:42 13.1 MLS/HR Dextrose (Dextrose 50%-Water Syringe) 12.5 gm PRN Q15MIN PRN 05/03/21 14:00 Digoxin (Lanoxin) 250 mcg 1X ONCE 04/26/21 13:00 04/26/21 13:05 DC 04/26/21 15:02 250 MCG Etomidate (Amidate) 20 mg STK-MED ONCE 04/24/21 13:38 04/24/21 13:38 DC Fentanyl Citrate 30 ml @ 0 mls/hr CONT PRN 04/24/21 14:00 05/12/21 00:12 2.5 MLS/HR Fentanyl Citrate (Fentanyl 2ml Vial) 25 mcg PRN Q1HR PRN 04/24/21 14:00 04/24/21 16:39 25 MCG Furosemide (Lasix) 40 mg Q8HRS 05/02/21 14:00 05/11/21 22:06 40 MG Heparin Sodium (Porcine) (Heparin Sodium) 5,000 unit Q8HRS 05/01/21 14:00 05/12/21 04:48 5,000 UNIT Heparin Sodium/ Dextrose 250 ml @ 0 mls/hr CONT PRN 04/24/21 16:45 05/01/21 12:32 DC 05/01/21 05:10 10 MLS/HR Hydralazine HCl (Apresoline Inj) 10 mg PRN Q4HRS PRN 04/25/21 14:45 05/11/21 13:19 10 MG Hydralazine HCl (Apresoline) 25 mg QID 05/10/21 10:00 05/12/21 08:55 25 MG Info (Anti-Coagulation Monitoring By Pharmacy) 1 each PRN DAILY PRN 04/25/21 13:00 05/02/21 07:36 DC 04/26/21 08:51 1 EACH Info (PHARMACY MONITORING -- do not chart) 1 each PRN DAILY PRN 05/07/21 08:45 Insulin Glargine (Lantus Syringe) 10 unit QHS 05/03/21 21:00 05/11/21 21:59 10 UNIT Insulin Human Lispro (HumaLOG) 0-5 UNITS Q6HRS 05/03/21 18:00 05/12/21 06:11 2 UNITS Labetalol HCl (Normodyne Iv Push) 20 mg PRN Q2HR PRN 05/01/21 12:30 05/11/21 13:35 20 MG Lidocaine HCl (Buffered Lidocaine 1%) 3 ml 1X ONCE 04/27/21 11:15 04/27/21 11:16 DC 04/27/21 11:15 3 ML Linezolid/Dextrose 300 ml @ 300 mls/hr Q12HR 05/11/21 09:00 05/12/21 10:34 300 MLS/HR Magnesium Sulfate 50 ml @ 25 mls/hr 1X ONCE 05/10/21 13:30 05/10/21 15:29 DC 05/10/21 14:36 25 MLS/HR Meropenem 500 mg/ Sodium Chloride 50 ml @ 100 mls/hr Q8HRS 05/11/21 14:00 05/12/21 04:46 100 MLS/HR Metoprolol Tartrate (Lopressor Vial) 5 mg Q6HRS 04/25/21 18:00 05/12/21 04:47 5 MG Midazolam HCl 100 ml @ 0 mls/hr CONT PRN 04/26/21 07:00 05/02/21 19:58 6 MLS/HR Montelukast Sodium (Singulair) 10 mg HS 04/24/21 21:00 05/11/21 20:51 10 MG Multi-Ingred Cream/Lotion/Oil/ Oint (Artificial Tears Eye Ointment) 1 danielito PRN Q1HR PRN 05/07/21 16:00 05/10/21 20:51 1 DANIELITO Nicardipine HCl 50 mg/Sodium Chloride 250 ml @ 25 mls/hr CONT PRN 05/06/21 18:45 05/08/21 21:30 25 MLS/HR Norepinephrine Bitartrate 8 mg/ Dextrose 258 ml @ 25.852 mls/ hr CONT PRN 05/02/21 21:00 05/09/21 06:10 DC 05/02/21 21:22 25.852 MLS/HR Ondansetron HCl (Zofran) 4 mg PRN Q6HRS PRN 04/24/21 14:00 Pantoprazole Sodium (PROTONIX VIAL for IV PUSH) 40 mg DAILYAC 04/26/21 09:30 05/12/21 08:54 40 MG Potassium Chloride/Water 100 ml @ 100 mls/hr 1X ONCE 05/12/21 07:00 05/12/21 07:59 DC 05/12/21 08:55 100 MLS/HR Propofol 100 ml @ 0 mls/hr CONT PRN 04/24/21 15:30 05/12/21 09:27 23.6 MLS/HR Remdesivir 100 mg/ Sodium Chloride 230 ml @ 460 mls/hr Q24H 04/26/21 17:30 04/29/21 17:59 DC 04/29/21 13:51 460 MLS/HR Remdesivir 200 mg/ Sodium Chloride 210 ml @ 210 mls/hr 1X ONCE 04/25/21 17:30 04/25/21 18:29 DC 04/25/21 17:09 210 MLS/HR Sodium Bicarbonate (Sodium Bicarb Adult 8.4% Syr) 50 meq 1X ONCE 04/27/21 09:45 04/27/21 09:46 DC 04/27/21 09:50 50 MEQ Sodium Chloride 1,000 ml @ 400 mls/hr Q2H30M PRN 05/07/21 08:45 05/07/21 20:44 DC Sodium Chloride (Normal Saline Flush) 10 ml 1X PRN PRN 05/04/21 07:30 05/05/21 07:29 DC Succinylcholine Chloride (Anectine) 200 mg STK-MED ONCE 04/24/21 13:38 04/24/21 13:38 DC Vecuronium [place] (Norcuron Bolus) 6 mg PRN Q6HRS PRN 04/30/21 11:15 05/11/21 11:59 6 MG Lab Laboratory Tests Test 05/11/21 11:48 05/11/21 17:38 05/12/21 00:47 05/12/21 05:00 Glucose (Fingerstick) 197 mg/dL (70-99) 195 mg/dL (70-99) 180 mg/dL (70-99) White Blood Count 14.7 x10^3/uL (4.0-11.0) Red Blood Count 2.57 x10^6/uL (4.30-5.70) Hemoglobin 6.8 g/dL (13.0-17.5) Hematocrit 21.0 % (39.0-53.0) Mean Corpuscular Volume 82 fL (79-100) Mean Corpuscular Hemoglobin 27 pg (25-35) Mean Corpuscular Hemoglobin Concent 32 g/dL (31-37) Red Cell Distribution Width 16.1 % (11.5-14.5) Platelet Count 311 x10^3/uL (140-400) Neutrophils (%) (Auto) 77 % (31-73) Lymphocytes (%) (Auto) 12 % (24-48) Monocytes (%) (Auto) 10 % (0-9) Eosinophils (%) (Auto) 1 % (0-3) Basophils (%) (Auto) 0 % (0-3) Neutrophils # (Auto) 11.3 x10^3/uL (1.8-7.7) Lymphocytes # (Auto) 1.7 x10^3/uL (1.0-4.8) Monocytes # (Auto) 1.5 x10^3/uL (0.0-1.1) Eosinophils # (Auto) 0.2 x10^3/uL (0.0-0.7) Basophils # (Auto) 0.0 x10^3/uL (0.0-0.2) Sodium Level 127 mmol/L (136-145) Potassium Level 2.9 mmol/L (3.5-5.1) Chloride Level 94 mmol/L (98-107) Carbon Dioxide Level 24 mmol/L (21-32) Anion Gap 9 (6-14) Blood Urea Nitrogen 52 mg/dL (8-26) Creatinine 3.2 mg/dL (0.7-1.3) Estimated GFR (Cockcroft-Gault) 23.1 Glucose Level 153 mg/dL (70-99) Calcium Level 8.5 mg/dL (8.5-10.1) Test 05/12/21 08:00 O2 Saturation 96 % (92-99) Arterial Blood pH 7.40 (7.35-7.45) Arterial Blood pCO2 at Patient Temp 32 mmHg (35-46) Arterial Blood pO2 at Patient Temp 86 mmHg (65-108) Arterial Blood HCO3 19 mmol/L (21-28) Arterial Blood Base Excess -5 mmol/L (-3-3) FiO2 40/vent Results All relevant outside records, renal labs, imaging studies, telemetry/EKG's were reviewed. Justicifation of Admission Dx: Justifications for Admission: Justification of Admission Dx: Yes Aspiration Pneumonia: Hemodynamic Instability JASMEET LAM MD May 12, 2021 11:30
[2021-05-12] MEDS ORDERED: DIALYSIS PATIENT. MC PRN ×2 (12:45)
[2021-05-12] MEDS ORDERED: IV NORMAL SALINE 1000ML BAG 1,000 ML IV PRN ×2 (13:00)
[2021-05-12] MEDS ORDERED: ALBUMIN HUMAN 25% 200 ML IV PRN (13:00)
[2021-05-12] MEDS: MONTELUKAST SODIUM 10 MG TABLET. PO SCH (21:48)
[2021-05-12] MEDS: ATORVASTATIN CALCIUM 40 MG TABLET. PO SCH (21:49)
[2021-05-12] MEDS: INSULIN GLARGINE SYRINGE. SQ SCH (21:53)
[2021-05-13] VITALS (30 sets, daily range): BP systolic 78–187; BP diastolic 54–81
[2021-05-13] MEDS: METOPROLOL IV PUSH 5 MG/5 ML VIAL. IVP SCH ×4 (00:18→16:34)
[2021-05-13] MEDS: INSULIN LISPRO 300 UNITS/3 ML VIAL. SQ SCH ×4 (00:19→18:00)
[2021-05-13] MEDS: DEXMEDETOMIDINE 400 MCG in IV NORMAL SALINE 100ML 96 ML IV PRN ×4 (01:18→20:09)
[2021-05-13] MEDS: PROPOFOL 100 ML IV PRN ×5 (02:30→19:39)
[2021-05-13] MEDS: MEROPENEM 500 MG in IV NORMAL SALINE 50ML 50 ML IV SCH ×3 (05:53→19:38)
[2021-05-13] MEDS: FUROSEMIDE 40 MG/4 ML VIAL. IVP SCH ×3 (05:54→22:00)
[2021-05-13] MEDS: HEPARIN for SUB-Q USE 5,000 UNIT/ML VIAL. SQ SCH ×3 (05:57→22:00)
[2021-05-13 06:18] LABS: BASO % 0 % (0-3); EOS # 0.1 x10^3/uL (0.0-0.7); EOS % 1 % (0-3); HEMATOCRIT 26.7 % (39.0-53.0); HEMOGLOBIN 8.8 g/dL (13.0-17.5); LYMPH # 1.3 x10^3/uL (1.0-4.8); LYMPH % 9 % (24-48); MEAN CORPUSCULAR HEMOGLOBIN 27 pg (25-35); MEAN CORPUSCULAR HGB CONC 33 g/dL (31-37); MEAN CORPUSCULAR VOLUME 81 fL (79-100); MONO # 1.6 x10^3/uL (0.0-1.1); MONO % 11 % (0-9); NEUT # 11.4 x10^3/uL (1.8-7.7); NEUT % 79 % (31-73); PLATELET COUNT 311 x10^3/uL (140-400); RED BLOOD COUNT 3.31 x10^6/uL (4.30-5.70); RED CELL DISTRIBUTION WIDTH 15.6 % (11.5-14.5); WHITE BLOOD COUNT 14.5 x10^3/uL (4.0-11.0)
[2021-05-13 06:30] LABS: CALCIUM 8.3 mg/dL (8.5-10.1); CREATININE 2.3 mg/dL (0.7-1.3); GFR 33.8; POTASSIUM 3.3 mmol/L (3.5-5.1)
[2021-05-13 07:56] LABS: BASE EXCESS ABG 1 mmol/L (-3-3); HCO3 ABG 25 mmol/L (21-28); PCO2 ABG 37 mmHg (35-46); PO2 ABG 85 mmHg (65-108); SAT O2 ABG 96 % (92-99)
[2021-05-13] MEDS: PANTOPRAZOLE IV PUSH 40 MG VIAL. IVP SCH (08:16)
[2021-05-13] MEDS: ASPIRIN CHEWABLE 81 MG TABLET. PO SCH (08:16)
[2021-05-13] MEDS: hydrALAZINE 25 MG TABLET PO SCH ×4 (08:16→21:00)
[2021-05-13] MEDS: AMIODARONE HCL 200 MG TABLET. PO SCH (08:16)
--- NOTE | 2021-05-13 09:11 | RAD ---
EXAM: AP View of the chest DATE: 05/13/2021 5:14 AM INDICATION: Reason: PNEUMONIA / Spl. Instructions: / History: COMPARISON: 05/11/2021 05/10/2021 FINDINGS/ IMPRESSION: Support lines and tubes are grossly stable in position. Heart is not enlarged. Mediastinal and hilar contours are stable. Bilateral parenchymal airspace opac ities are grossly stable. Small pleural effusions. No pneumothorax. Electronically signed by: Ari Mendoza MD (05/13/2021 9:09 AM) [facility]
--- NOTE | 2021-05-13 09:13 | PDOC ---
Infectious Disease Note Subjective Subjective Patient intubated/sedated ROS ROS No nausea vomiting diarrhea or fever Vital Sign Vital Signs Vital Signs Date Time Temp Pulse Resp B/P (MAP) Pulse Ox O2 Delivery O2 Flow Rate FiO2 05/13/21 08:17 56 80/60 05/13/21 07:38 100 Ventilator 05/13/21 07:00 20 05/13/21 04:00 98.4 98.4 Physical Exam PHYSICAL EXAM GENERAL: Well-developed and well-nourished male, intubated, sedated. HEENT: Normocephalic, atraumatic, and anicteric. ETT and OGT present. NECK: Right IJ removed, right dialysis catheter present clean HEART: S1, S2. LUNGS: Decreased breath sounds. ABDOMEN: Soft, obese, bowel sounds present. GENITOURINARY: Nieves in place. EXTREMITIES: Edema present. DERMATOLOGIC: Warm, dry, no generalized rash. NEUROLOGIC: Intubated. PSYCHIATRIC: Unable to obtain. Labs Lab Laboratory Tests Test 05/12/21 12:15 05/12/21 18:23 05/13/21 00:11 05/13/21 05:41 Glucose (Fingerstick) 169 mg/dL (70-99) 132 mg/dL (70-99) 231 mg/dL (70-99) 170 mg/dL (70-99) Test 05/13/21 06:08 White Blood Count 14.5 x10^3/uL (4.0-11.0) Red Blood Count 3.31 x10^6/uL (4.30-5.70) Hemoglobin 8.8 g/dL (13.0-17.5) Hematocrit 26.7 % (39.0-53.0) Mean Corpuscular Volume 81 fL (79-100) Mean Corpuscular Hemoglobin 27 pg (25-35) Mean Corpuscular Hemoglobin Concent 33 g/dL (31-37) Red Cell Distribution Width 15.6 % (11.5-14.5) Platelet Count 311 x10^3/uL (140-400) Neutrophils (%) (Auto) 79 % (31-73) Lymphocytes (%) (Auto) 9 % (24-48) Monocytes (%) (Auto) 11 % (0-9) Eosinophils (%) (Auto) 1 % (0-3) Basophils (%) (Auto) 0 % (0-3) Neutrophils # (Auto) 11.4 x10^3/uL (1.8-7.7) Lymphocytes # (Auto) 1.3 x10^3/uL (1.0-4.8) Monocytes # (Auto) 1.6 x10^3/uL (0.0-1.1) Eosinophils # (Auto) 0.1 x10^3/uL (0.0-0.7) Basophils # (Auto) 0.0 x10^3/uL (0.0-0.2) Sodium Level 130 mmol/L (136-145) Potassium Level 3.3 mmol/L (3.5-5.1) Chloride Level 94 mmol/L (98-107) Carbon Dioxide Level 27 mmol/L (21-32) Anion Gap 9 (6-14) Blood Urea Nitrogen 28 mg/dL (8-26) Creatinine 2.3 mg/dL (0.7-1.3) Estimated GFR (Cockcroft-Gault) 33.8 Glucose Level 149 mg/dL (70-99) Calcium Level 8.3 mg/dL (8.5-10.1) Micro GRAM STAIN EVALUATION Final Final This specimen is of good quality and is acceptable for routine bacterial culture. Culture results to follow. GRAM NEGATIVE RODS:FEW GRAM POSITIVE COCCI:RARE SQUAMOUS EPI CELL:NONE SEEN PMN (WBCs):MANY Unless otherwise specified, Testing Performed by: [address] [id number] For Inquires, the Physician may contact the Microbiology department at [phone] RESPIRATORY CULTURE Preliminary Preliminary No Growth on 05/12/21 at 0900 Unless otherwise specified, Testing Performed by: [address] [id number] For Inquires, the Physician may contact the Microbiology department at [phone] Objective Assessment 1. Febrile illness could be healthcare-associated infection 2. Leukocytosis, on steroids. 3. COVID-19 pneumonia. 4. Acute hypoxic respiratory failure status post intubation. 5. Congestive heart failure, acute on chronic. 6. Acute kidney injury on chronic kidney disease on hemodialysis. 7. Diabetes mellitus 2. 8. Atrial fibrillation. 9. Anemia. 10. Protein-calorie malnutrition. 11. Hypertention Plan Plan of Care 1. Continue cefepime , and zyvox, sputum culture 2. Follow-up labs and cultures 3. Change central line and send cath tip for cultures. 4. Check C. difficile PCR 5. Continue supportive care. 6. Critically ill. Discussed with nursing staff JAD RIVERO MD May 13, 2021 09:13
[2021-05-13 09:19] LABS: FIO2 ABG 40/VENT
--- NOTE | 2021-05-13 09:50 | PDOC ---
PULMONARY PROGRESS NOTES DATE: 05/13/21 TIME: 09:49 Subjective Remains on ventilatory support 40%/peep of 5 Sedated on propofol, fentanyl, and Precedex Electrolyte abnormalities and anemia on a.m. labs No overnight concerns Vitals Vital Signs Date Time Temp Pulse Resp B/P (MAP) Pulse Ox O2 Delivery O2 Flow Rate FiO2 05/13/21 09:24 100 Ventilator 05/13/21 09:00 60 20 100/70 (80) 05/13/21 08:00 98.1 98.1 Comments Visual exam done due to COVID-19. Intubated and sedated No paradoxical breathing. Labs Laboratory Tests Test 05/11/21 11:48 05/11/21 17:38 05/12/21 00:47 05/12/21 05:00 Glucose (Fingerstick) 197 mg/dL (70-99) 195 mg/dL (70-99) 180 mg/dL (70-99) White Blood Count 14.7 x10^3/uL (4.0-11.0) Red Blood Count 2.57 x10^6/uL (4.30-5.70) Hemoglobin 6.8 g/dL (13.0-17.5) Hematocrit 21.0 % (39.0-53.0) Mean Corpuscular Volume 82 fL (79-100) Mean Corpuscular Hemoglobin 27 pg (25-35) Mean Corpuscular Hemoglobin Concent 32 g/dL (31-37) Red Cell Distribution Width 16.1 % (11.5-14.5) Platelet Count 311 x10^3/uL (140-400) Neutrophils (%) (Auto) 77 % (31-73) Lymphocytes (%) (Auto) 12 % (24-48) Monocytes (%) (Auto) 10 % (0-9) Eosinophils (%) (Auto) 1 % (0-3) Basophils (%) (Auto) 0 % (0-3) Neutrophils # (Auto) 11.3 x10^3/uL (1.8-7.7) Lymphocytes # (Auto) 1.7 x10^3/uL (1.0-4.8) Monocytes # (Auto) 1.5 x10^3/uL (0.0-1.1) Eosinophils # (Auto) 0.2 x10^3/uL (0.0-0.7) Basophils # (Auto) 0.0 x10^3/uL (0.0-0.2) Sodium Level 127 mmol/L (136-145) Potassium Level 2.9 mmol/L (3.5-5.1) Chloride Level 94 mmol/L (98-107) Carbon Dioxide Level 24 mmol/L (21-32) Anion Gap 9 (6-14) Blood Urea Nitrogen 52 mg/dL (8-26) Creatinine 3.2 mg/dL (0.7-1.3) Estimated GFR (Cockcroft-Gault) 23.1 Glucose Level 153 mg/dL (70-99) Calcium Level 8.5 mg/dL (8.5-10.1) Test 05/12/21 08:00 05/12/21 12:15 05/12/21 18:23 05/13/21 00:11 O2 Saturation 96 % (92-99) Arterial Blood pH 7.40 (7.35-7.45) Arterial Blood pCO2 at Patient Temp 32 mmHg (35-46) Arterial Blood pO2 at Patient Temp 86 mmHg (65-108) Arterial Blood HCO3 19 mmol/L (21-28) Arterial Blood Base Excess -5 mmol/L (-3-3) FiO2 40/vent Glucose (Fingerstick) 169 mg/dL (70-99) 132 mg/dL (70-99) 231 mg/dL (70-99) Test 05/13/21 05:41 05/13/21 06:08 05/13/21 07:45 Glucose (Fingerstick) 170 mg/dL (70-99) White Blood Count 14.5 x10^3/uL (4.0-11.0) Red Blood Count 3.31 x10^6/uL (4.30-5.70) Hemoglobin 8.8 g/dL (13.0-17.5) Hematocrit 26.7 % (39.0-53.0) Mean Corpuscular Volume 81 fL (79-100) Mean Corpuscular Hemoglobin 27 pg (25-35) Mean Corpuscular Hemoglobin Concent 33 g/dL (31-37) Red Cell Distribution Width 15.6 % (11.5-14.5) Platelet Count 311 x10^3/uL (140-400) Neutrophils (%) (Auto) 79 % (31-73) Lymphocytes (%) (Auto) 9 % (24-48) Monocytes (%) (Auto) 11 % (0-9) Eosinophils (%) (Auto) 1 % (0-3) Basophils (%) (Auto) 0 % (0-3) Neutrophils # (Auto) 11.4 x10^3/uL (1.8-7.7) Lymphocytes # (Auto) 1.3 x10^3/uL (1.0-4.8) Monocytes # (Auto) 1.6 x10^3/uL (0.0-1.1) Eosinophils # (Auto) 0.1 x10^3/uL (0.0-0.7) Basophils # (Auto) 0.0 x10^3/uL (0.0-0.2) Sodium Level 130 mmol/L (136-145) Potassium Level 3.3 mmol/L (3.5-5.1) Chloride Level 94 mmol/L (98-107) Carbon Dioxide Level 27 mmol/L (21-32) Anion Gap 9 (6-14) Blood Urea Nitrogen 28 mg/dL (8-26) Creatinine 2.3 mg/dL (0.7-1.3) Estimated GFR (Cockcroft-Gault) 33.8 Glucose Level 149 mg/dL (70-99) Calcium Level 8.3 mg/dL (8.5-10.1) O2 Saturation 96 % (92-99) Arterial Blood pH 7.45 (7.35-7.45) Arterial Blood pCO2 at Patient Temp 37 mmHg (35-46) Arterial Blood pO2 at Patient Temp 85 mmHg (65-108) Arterial Blood HCO3 25 mmol/L (21-28) Arterial Blood Base Excess 1 mmol/L (-3-3) FiO2 40/vent Laboratory Tests Test 05/12/21 12:15 05/12/21 18:23 05/13/21 00:11 05/13/21 05:41 Glucose (Fingerstick) 169 mg/dL (70-99) 132 mg/dL (70-99) 231 mg/dL (70-99) 170 mg/dL (70-99) Test 05/13/21 06:08 05/13/21 07:45 White Blood Count 14.5 x10^3/uL (4.0-11.0) Red Blood Count 3.31 x10^6/uL (4.30-5.70) Hemoglobin 8.8 g/dL (13.0-17.5) Hematocrit 26.7 % (39.0-53.0) Mean Corpuscular Volume 81 fL (79-100) Mean Corpuscular Hemoglobin 27 pg (25-35) Mean Corpuscular Hemoglobin Concent 33 g/dL (31-37) Red Cell Distribution Width 15.6 % (11.5-14.5) Platelet Count 311 x10^3/uL (140-400) Neutrophils (%) (Auto) 79 % (31-73) Lymphocytes (%) (Auto) 9 % (24-48) Monocytes (%) (Auto) 11 % (0-9) Eosinophils (%) (Auto) 1 % (0-3) Basophils (%) (Auto) 0 % (0-3) Neutrophils # (Auto) 11.4 x10^3/uL (1.8-7.7) Lymphocytes # (Auto) 1.3 x10^3/uL (1.0-4.8) Monocytes # (Auto) 1.6 x10^3/uL (0.0-1.1) Eosinophils # (Auto) 0.1 x10^3/uL (0.0-0.7) Basophils # (Auto) 0.0 x10^3/uL (0.0-0.2) Sodium Level 130 mmol/L (136-145) Potassium Level 3.3 mmol/L (3.5-5.1) Chloride Level 94 mmol/L (98-107) Carbon Dioxide Level 27 mmol/L (21-32) Anion Gap 9 (6-14) Blood Urea Nitrogen 28 mg/dL (8-26) Creatinine 2.3 mg/dL (0.7-1.3) Estimated GFR (Cockcroft-Gault) 33.8 Glucose Level 149 mg/dL (70-99) Calcium Level 8.3 mg/dL (8.5-10.1) O2 Saturation 96 % (92-99) Arterial Blood pH 7.45 (7.35-7.45) Arterial Blood pCO2 at Patient Temp 37 mmHg (35-46) Arterial Blood pO2 at Patient Temp 85 mmHg (65-108) Arterial Blood HCO3 25 mmol/L (21-28) Arterial Blood Base Excess 1 mmol/L (-3-3) FiO2 40/vent Medications Active Scripts Medications Dose Route/Sig Max Daily Dose Days Date Category Glyburide 2.5 Mg Tablet 1 Tab PO DAILY 04/19/21 Rx Polyethylene Glycol 3350 17 Gm Powd.pack 17 Gm PO DAILY 04/19/21 Rx Dok (Docusate Sodium) 100 Mg Capsule 100 Mg PO PRN DAILY PRN 04/19/21 Rx Bisacodyl 5 Mg Tablet.dr 5 Mg PO PRN DAILY PRN 04/19/21 Rx Acetaminophen 325 Mg Tablet 650 Mg PO PRN Q4HRS PRN 04/19/21 Rx Aspirin Ec (Aspirin) 81 Mg Tablet.dr 81 Mg PO DAILYWBKFT 04/19/21 Rx Hydralazine Hcl 25 Mg Tablet 25 Mg PO QID 04/19/21 Rx Fenofibrate 54 Mg Tablet 1 Tab PO DAILY 04/17/21 Reported Potassium Chloride (Potassium Chloride) 20 Meq Tablet.er 20 Meq PO DAILY 04/17/21 Reported Coreg (Carvedilol) 12.5 Mg Tablet 37.5 Mg PO BIDWMEALS 04/17/21 Reported Rosuvastatin Calcium 40 Mg Tablet 40 Mg PO QHS 04/17/21 Reported Gabapentin (Gabapentin) 100 Mg Capsule 200 Mg PO BID 04/17/21 Reported Montelukast Sodium Tablet (Montelukast Sodium) 10 Mg Tablet 10 Mg PO HS 04/17/21 Reported Protonix (Pantoprazole Sodium) 20 Mg Tablet. 2 Tab PO DAILY 04/17/21 Reported Amlodipine Besylate 5 Mg Tablet 5 Mg PO DAILY 04/17/21 Reported Furosemide 40 Mg Tablet 1 Tab PO DAILY 04/17/21 Reported Proair Hfa Inhaler (Albuterol Sulfate) 8.5 Gm Hfa.aer.ad 2 Puff IH PRN Q4-6HRS PRN 04/16/21 Reported Advair 100-50 Diskus (Fluticasone/Salmeterol) 1 Each Disk.w.dev 1 Puff IH BID 04/16/21 Reported Comments Impression . IMPRESSION: 1. Acute hypoxic respiratory failure, multifactorial/COVID-19 viral pneumonia/ARDS, ongoing, intubated 04/25/[address] chest with bilateral diffuse interstitial infiltrates without any significant pleural effusion 3. Leukocytosis, sepsis--ongoing ID following 4. Non-ST segment elevation [place] 5. History of tobacco use, suspect COPD, unknown FEV1 6. Chronic kidney disease.== Neph neurology following, hemodialysis currently on hold 7. Metabolic acidosis multifactorial 8. Abnormal chest x-ray 9. Hypoglycemia, continue to monitor 10. Hypotension, suspect volume deficit,/possible sepsis 11. Fever--resolved 12. Anemia Plan . Updated 05/13/21 Continue current vent support 20/500/40%/5 Patient did not tolerate sedation vacation 05/11/2021, profoundly hypertensive Follow ABG/CXR--changes as needed Follow ID recs for ABX --Continue cefepime, now on Zyvox as well Follow surgery recommendations for tracheostomy, plan for tracheostomy 05/15/2021 Follow nephrology recs-- HD --hemodialysis, replace electrolytes per nephrology recommendations Monitor hemoglobin, no active signs of bleeding, transfuse if hemoglobin less than 7.0, panel and for packed red blood cells with hemodialysis, improved hemoglobin today. Follow Cardiology recs--preserved LV function, hypertension, continue TF for nutritional support DVT/GI PPX:D/C subQ heparin 2/2 anemia D/W RN and RT Pt. is DNR cct 30 min Updated 05/12/21 Continue current vent support 20/500/40%/5 Patient did not tolerate sedation vacation 05/11/2021, profoundly hypertensive Follow ABG/CXR--changes as needed Follow ID recs for ABX --Continue cefepime, now on Zyvox as well Follow surgery recommendations for tracheostomy, plan for tracheostomy 05/15/2021 Follow nephrology recs-- HD --hemodialysis, replace electrolytes per nephrology recommendations Monitor hemoglobin, no active signs of bleeding, transfuse if hemoglobin less than 7.0, panel and for packed red blood cells x1 today with hemodialysis Follow Cardiology recs--preserved LV function, hypertension, continue TF for nutritional support DVT/GI PPX:D/C subQ heparin 2/2 anemia D/W RN and RT Pt. is DNR cct 30 min Updated 05/11/21 Continue current vent support 20/500/40%/5. While awaiting tracheostomy, will initiate another trial of CPAP if tolerates. Follow ABG/CXR--changes as needed Follow ID recs for ABX --Continue cefepime Follow surgery recommendations for tracheostomy Follow nephrology recs-- HD --hemodialysis currently on hold Follow Cardiology recs--preserved LV function, hypertension, off Cardene drip continue TF for nutritional support DVT/GI PPX:subQ heparin D/W RN and RT Pt. is DNR cct 30 min Updated 05/10/21 Patient was intubated 04/25/2021, unable to tolerate pressure support trials, we will consult surgery at this time for possible tracheostomy Continue current vent support 20/500/40%/5, attempt sedation vacation, patient did not tolerate reducing sedation 05/08/2021 became very tachypneic and hypertensive, again patient did not tolerate reducing sedation or pressure support trial on 05/09/2021 secondary to increased respiratory rate and increased blood pressure. Follow ABG/CXR--reviewed Patient has completed full course of steroids Follow ID recs for ABX --Continue cefepime Follow nephrology recs-- HD Follow Cardiology recs--preserved LV function, hypertension, remains on Cardene drip Hyperglycemia Per PCP continue TF for nutritional support DVT/GI PPX:subQ heparin D/W RN and RT Pt. is DNR I have discussed with patient's DPOA. I did explain to her about the need for tracheostomy. She is agreeable to proceed. General surgery has been consulted. cct 30 min JONES FISHMAN MD May 13, 2021 09:50
--- NOTE | 2021-05-13 10:30 | PDOC ---
PROGRESS NOTES Date of Service: DATE: 05/13/21 TIME: 10:29 Chief Complaint Chief Complaint Respiratory failure requiring intubation COVID-19 Acute [place] A. fib SIRS Hypertension with hypertensive urgency Hyperlipidemia CKD Diabetes History of bilateral subclavian stenosis History of marijuana use Severe protein calorie malnutrition History of Present Illness History of Present Illness 05/13/2021 did not tolerate sedation vacation 05/11/2021, profoundly hypertensive ABG/CXR--changes as needed Continue iv cefepime , add zyvox, sputum culture VENT [id number]%, 5 of PEEP Mild pulmonary edema with new small right pleural effusion and basilar opacities now on cardene gtt prn Patient seen and examined in the [place] [address] ICU remains mechanically ventilated ILDA on CKD - ATN 2/2 sepsis/ Hypotension,UOP good,on IV Lasix ; requiring dialysis, Sedated with propofol Dex and fentanyl Chart reviewed Discussed with RN He remains critically ill intubated/sedated cont cardene gtt not able to tolerate PS trial 05/06/21 Change central line and send cath tip for cultures. 05-09 C. difficile PCR ADELSO AVILA MD ORDERED: BCULT Procedure Result BLOOD CULTURE Final NO GROWTH AFTER 5 DAYS JONES FISHMAN MD, CHRISTOPHER S MD BLOOD CULTURE Preliminary NO GROWTH AFTER 4 DAYS 37 min cc time 05/12/2021 Continue iv cefepime , add zyvox, sputum culture VENT [id number]%, 5 of PEEP Mild pulmonary edema with new small right pleural effusion and basilar opacities now on cardene gtt prn Patient seen and examined in the [facility] ICU remains mechanically ventilated ILDA on CKD - ATN 2/2 sepsis/ Hypotension,UOP good,on IV Lasix ; requiring dialysis, Sedated with propofol Dex and fentanyl Chart reviewed Discussed with RN He remains critically ill intubated/sedated cont cardene gtt not able to tolerate PS trial 05/06/21 Change central line and send cath tip for cultures. 05-09 C. difficile PCR JONES FISHMAN MD, CHRISTOPHER S MD SISILLO, SABATO MD ORDERED: BCULT Procedure Result BLOOD CULTURE Preliminary NO GROWTH AFTER 2 DAYS BLOOD CULTURE Preliminary NO GROWTH AFTER 4 DAYS 33 min cc time 05/11/2021 Continue iv cefepime , add zyvox, sputum culture VENT [id number]%, 5 of PEEP Mild pulmonary edema with new small right pleural effusion and basilar opacities now on cardene gtt prn Patient seen and examined in the [place] [address] ICU remains mechanically ventilated ILDA on CKD - ATN 2/2 sepsis/ Hypotension,UOP good,on IV Lasix ; requiring dialysis, Sedated with propofol Dex and fentanyl Chart reviewed Discussed with RN He remains critically ill intubated/sedated cont cardene gtt not able to tolerate PS trial 05/06/21 Change central line and send cath tip for cultures. 05-09 C. difficile PCR JONES FISHMAN MD,BRIAN AVILA,ADELSO POTTER ORDERED: BCULT Procedure Result ---- -------- BLOOD CULTURE Preliminary NO GROWTH AFTER 2 DAYS BLOOD CULTURE Preliminary NO GROWTH AFTER 4 DAYS 36 min cc time 05/10/2021 VENT [id number]%, 5 of PEEP Mild pulmonary edema with new small right pleural effusion and basilar opacities now on cardene gtt prn Patient seen and examined in the [place] [address] ICU remains mechanically ventilated ILDA on CKD - ATN 2/2 sepsis/ Hypotension,UOP good,on IV Lasix ; requiring dialysis, Sedated with propofol Dex and fentanyl Chart reviewed Discussed with RN He remains critically ill intubated/sedated cont cardene gtt not able to tolerate PS trial 05/06/21 Change central line and send cath tip for cultures. 05-09 C. difficile PCR JONES FISHMAN MD,BRIAN AVILA,ADELSO POTTER ORDERED: BCULT Procedure Result BLOOD CULTURE Preliminary NO GROWTH AFTER 2 DAYS BLOOD CULTURE Preliminary NO GROWTH AFTER 4 DAYS 33 min cc time 05/09/2021 VENT %, 5 of PEEP Mild pulmonary edema with new small right pleural effusion and basilar opacities now on cardene gtt prn Patient seen and examined in the [place] [address] ICU remains mechanically ventilated ILDA on CKD - ATN 2/2 sepsis/ Hypotension,UOP good,on IV Lasix ; requiring dialysis, Sedated with propofol Dex and fentanyl Chart reviewed Discussed with RN He remains critically ill intubated/sedated cont cardene gtt not able to tolerate PS trial 05/06/21 Change central line and send cath tip for cultures. 05-09 C. difficile PCR JONES FISHMAN MD,ADELSO DASILVA MD, MD ORDERED: BCULT Procedure Result BLOOD CULTURE Preliminary NO GROWTH AFTER 2 DAYS ----- ------- BLOOD CULTURE Preliminary NO GROWTH AFTER 4 DAYS 37 min cc time 05/08/2021 Currently on 40%, 5 of PEEP now on cardene gtt Patient seen and examined in the [place] [address] ICU remains mechanically ventilated ILDA on CKD - ATN 2/2 sepsis/ Hypotension,UOP good,on IV Lasix ; requiring dialysis, AC/20/500/40 percent with 5 of PEEP Sedated with propofol Dex and fentanyl Chart reviewed Discussed with RN He remains critically ill intubated/sedated cont cardene gtt not able to tolerate PS trial 05/06/21 JONES FISHMAN MD, CHRISTOPHER S MD SISILLO, SABATO MD ORDERED: BCULT Procedure Result BLOOD CULTURE Preliminary NO GROWTH AFTER 2 DAYS BLOOD CULTURE Preliminary NO GROWTH AFTER 4 DAYS 33 min cc time 05/07/2021 Patient seen and examined in the [place] [address] ICU He remains mechanically ventilated ILDA on CKD - ATN 2/2 sepsis/ Hypotension,UOP good,on IV Lasix ; requiring dialysis, AC/20/500/40 percent with 5 of PEEP Sedated with propofol Dex and fentanyl Chart reviewed Discussed with RN He remains critically ill intubated/sedated cont cardene gtt not able to tolerate PS trial 05/06/21 JONES FISHMAN MD, CHRISTOPHER S MD SISILLO, SABATO MD ORDERED: BCULT Procedure Result BLOOD CULTURE Preliminary NO GROWTH AFTER 2 DAYS 36 min cc time 05/06/2021 Patient seen and examined in the [place] [address] ICU He remains mechanically ventilated AC/20/500/40 percent with 5 of PEEP Sedated with propofol Dex and fentanyl Chart reviewed Discussed with RN He remains critically ill 05/05/2020 Patient seen and examined in the [place] [address] ICU He remains on the vent AC/20/500/40 percent with 5 of PEEP Discussed with RN Chart reviewed Has SCDs in place Nieves to bedside drainage He remains critically ill 05/04/2021 Patient seen and examined in the [place] [address] ICU Still intubated Sedated with propofol and fentanyl AC/20/500/70 percent with 5 of PEEP On dialysis currently Has SCDs in Nieves to bedside drainage Discussed with RN Chart reviewed 05/03/2021 Patient seen and examined in the [place] [address] ICU He is still intubated AC/20/500/70 percent with 5 of PEEP Has SCDs in place Nieves to bedside drainage Sedated with fentanyl Versed and propofol Discussed are Chart reviewed Remains critically ill 05/02/2021 Patient seen and examined in the [place] [address] ICU He is sedated with propofol fentanyl and Versed Ventilator settings as follow AC/20/500/40 percent with 5 of PEEP Has Nieves to bedside drainage Chart reviewed Discussed with RN He remains critically ill 05/01/2021 Patient seen and examined in the [facility] ICU He is still intubated AC/20/500/40 percent with 5 of PEEP In A. fib Sedated with propofol fentanyl and Versed Has a heparin drip Missy with RN Chart reviewed He remains critically 04/30/2020 Patient seen and examined in the [facility] ICU He remains on the vent AC/20/500/40 5% with 5 PEEP Currently on dialysis Has OG feeds running Has a Nieves to bedside drainage Sedated with propofol and fentanyl Reviewed chart Discussed with RN He remains critically ill Mr Cunha is a 75 yo male w/ PMHx CAD, HTN, Hyperlipidemia, subclavian steel syndrome, subclavian stenosis s/p left subclavian sent placement complicated by retroperitoneal hematoma s/p evacuation in 08/2015), asthma, BART, CKD, DM2 who presented from home with home health care noted that he was short of breath and valverde with O2 saturations less than 89% as low as 84% not improved with nasal cannulated oxygen placed on CPAP and brought to ED for further care. He was just discharged from the hospital a week ago on April 19, 2021 for abdominal pain and was going for further cardiac testing with outpatient stress testing scheduled on May 28, 2021. Had echocardiogram April 17, 2021 with normal-appearing EF with moderate concentric LVH no significant valvular abnormalities. WBC 20, Hb 10.7, platelets 268, NA 140, K3.8, BUN 21, CR 2.9, glucose 162, albumin 3, troponin I 1.372, NT proBNP 33,318. EKG appears sinus tachycardia rate of 105 bpm with multiple PACs small ST depressions in lead II and V5. TWI in V6. Chest radiograph with diffuse interstitial and alveolar opacities and ET tube 5.8 cm above the leilani. Due to worsening respiratory status ED physician elected to intubate patient. Seen postintubation. Blood pressure little low after propofol bolus, but improved. Significant white frothy sputum per ET tube. Admitted to ICU for further care 04/29/2021: Afebrile, remains on vent at FiO2 45%, PEEP 5. WBC 20.4. Hemodialysis per nephrology. We will continue treatment with empiric antibiotics, remdesivir, and steroids. Continue heparin infusion and supportive care. Critical care time 30 minutes reviewing chart, review labs, review imaging, discussion with RN. 04/28/2021: Afebrile. FiO2 50%, PEEP 5. Nontunneled HD catheter placed yesterday due to worsening kidney function; eGFR 16 (CKD4). Chest x-ray showed unchanged interstitial opacities. Continue empiric antibiotics, steroids, and remdesivir. Continue heparin infusion, and continue to follow cardiology recommendations on new diagnosis of A. fib. Critical care time 30 minutes reviewing chart, review labs, review imaging, discussion with RN. 04/27/2021: Afebrile. On vent with FiO2 50%, PEEP 5. Troponin 2.8 yesterday; probable type II, demand ischemia. New onset A. fib. Continue heparin drip and as needed digoxin, per cardiology. Continue treatment with remdesivir, steroids, and prophylactic antibiotics. CBG 323 this morning; will add basal insulin. Critical care 30 minutes spent reviewing labs, reviewing imaging, reviewing charts, and discussion with RN. 04/26/2021: COVID-19 positive. Febrile overnight that was managed with cooling blankets. On vent with FiO2 50%, PEEP 5. Per cardiology, elevated troponins likely secondary to demand ischemia; continue heparin drip per cardiology. Maintain fluid balance and avoid nephrotoxins. Continue treatment with remdesivir, steroids, and prophylactic antibiotics. 30 minutes critical care time spent reviewing charts, reviewing labs, reviewing imaging, and discussion with RN. 04/25/2021: On vent FiO2 50, PEEP 5. Febrile, T-max 103.3. Patient was initiated on cooling blankets. Procalcitonin 0.13. Continue coverage for hospital-acquired pneumonia with cefepime. MRSA PCR pending. Critical care time 30 minutes spent reviewing charts, reviewing labs, review of imaging, discussion with RN. Vitals Vitals Vital Signs Date Time Temp Pulse Resp B/P (MAP) Pulse Ox O2 Delivery O2 Flow Rate FiO2 05/13/21 10:00 55 20 83/58 (66) 100 Ventilator 05/13/21 08:00 98.1 98.1 Physical Exam Physical Exam GENERAL: Well-developed and well-nourished male, intubated, sedated. HEENT: Normocephalic, atraumatic, and anicteric. ETT and OGT present. NECK: Right IJ removed, right dialysis catheter present clean HEART: S1, S2. LUNGS: Decreased breath sounds. ABDOMEN: Soft, obese, bowel sounds present. GENITOURINARY: Nieves in place. EXTREMITIES: Edema present. DERMATOLOGIC: Warm, dry, no generalized rash. NEUROLOGIC: Intubated. PSYCHIATRIC: Unable to obtain. General: No acute distress Heart: Regular rate, Normal S1, Normal S2 Abdomen: Other (ND) Extremities: No clubbing, No cyanosis Skin: No rashes, No breakdown, No significant lesion Labs LABS Laboratory Tests Test 05/12/21 12:15 05/12/21 18:23 05/13/21 00:11 05/13/21 05:41 Glucose (Fingerstick) 169 mg/dL (70-99) 132 mg/dL (70-99) 231 mg/dL (70-99) 170 mg/dL (70-99) Test 05/13/21 06:08 05/13/21 07:45 White Blood Count 14.5 x10^3/uL (4.0-11.0) Red Blood Count 3.31 x10^6/uL (4.30-5.70) Hemoglobin 8.8 g/dL (13.0-17.5) Hematocrit 26.7 % (39.0-53.0) Mean Corpuscular Volume 81 fL (79-100) Mean Corpuscular Hemoglobin 27 pg (25-35) Mean Corpuscular Hemoglobin Concent 33 g/dL (31-37) Red Cell Distribution Width 15.6 % (11.5-14.5) Platelet Count 311 x10^3/uL (140-400) Neutrophils (%) (Auto) 79 % (31-73) Lymphocytes (%) (Auto) 9 % (24-48) Monocytes (%) (Auto) 11 % (0-9) Eosinophils (%) (Auto) 1 % (0-3) Basophils (%) (Auto) 0 % (0-3) Neutrophils # (Auto) 11.4 x10^3/uL (1.8-7.7) Lymphocytes # (Auto) 1.3 x10^3/uL (1.0-4.8) Monocytes # (Auto) 1.6 x10^3/uL (0.0-1.1) Eosinophils # (Auto) 0.1 x10^3/uL (0.0-0.7) Basophils # (Auto) 0.0 x10^3/uL (0.0-0.2) Sodium Level 130 mmol/L (136-145) Potassium Level 3.3 mmol/L (3.5-5.1) Chloride Level 94 mmol/L (98-107) Carbon Dioxide Level 27 mmol/L (21-32) Anion Gap 9 (6-14) Blood Urea Nitrogen 28 mg/dL (8-26) Creatinine 2.3 mg/dL (0.7-1.3) Estimated GFR (Cockcroft-Gault) 33.8 Glucose Level 149 mg/dL (70-99) Calcium Level 8.3 mg/dL (8.5-10.1) O2 Saturation 96 % (92-99) Arterial Blood pH 7.45 (7.35-7.45) Arterial Blood pCO2 at Patient Temp 37 mmHg (35-46) Arterial Blood pO2 at Patient Temp 85 mmHg (65-108) Arterial Blood HCO3 25 mmol/L (21-28) Arterial Blood Base Excess 1 mmol/L (-3-3) FiO2 40/vent Assessment and Plan Assessmemt and Plan Problems Medical Problems: (1) Elevated troponin Status: Acute (2) Person under investigation for COVID-19 Status: Acute (3) Pulmonary edema Status: Acute Comment Review of Relevant I have reviewed the following items juanita (where applicable) has been applied. Labs Laboratory Tests Test 05/11/21 11:48 05/11/21 17:38 05/12/21 00:47 05/12/21 05:00 Glucose (Fingerstick) 197 mg/dL (70-99) 195 mg/dL (70-99) 180 mg/dL (70-99) White Blood Count 14.7 x10^3/uL (4.0-11.0) Red Blood Count 2.57 x10^6/uL (4.30-5.70) Hemoglobin 6.8 g/dL (13.0-17.5) Hematocrit 21.0 % (39.0-53.0) Mean Corpuscular Volume 82 fL (79-100) Mean Corpuscular Hemoglobin 27 pg (25-35) Mean Corpuscular Hemoglobin Concent 32 g/dL (31-37) Red Cell Distribution Width 16.1 % (11.5-14.5) Platelet Count 311 x10^3/uL (140-400) Neutrophils (%) (Auto) 77 % (31-73) Lymphocytes (%) (Auto) 12 % (24-48) Monocytes (%) (Auto) 10 % (0-9) Eosinophils (%) (Auto) 1 % (0-3) Basophils (%) (Auto) 0 % (0-3) Neutrophils # (Auto) 11.3 x10^3/uL (1.8-7.7) Lymphocytes # (Auto) 1.7 x10^3/uL (1.0-4.8) Monocytes # (Auto) 1.5 x10^3/uL (0.0-1.1) Eosinophils # (Auto) 0.2 x10^3/uL (0.0-0.7) Basophils # (Auto) 0.0 x10^3/uL (0.0-0.2) Sodium Level 127 mmol/L (136-145) Potassium Level 2.9 mmol/L (3.5-5.1) Chloride Level 94 mmol/L (98-107) Carbon Dioxide Level 24 mmol/L (21-32) Anion Gap 9 (6-14) Blood Urea Nitrogen 52 mg/dL (8-26) Creatinine 3.2 mg/dL (0.7-1.3) Estimated GFR (Cockcroft-Gault) 23.1 Glucose Level 153 mg/dL (70-99) Calcium Level 8.5 mg/dL (8.5-10.1) Test 05/12/21 08:00 05/12/21 12:15 05/12/21 18:23 05/13/21 00:11 O2 Saturation 96 % (92-99) Arterial Blood pH 7.40 (7.35-7.45) Arterial Blood pCO2 at Patient Temp 32 mmHg (35-46) Arterial Blood pO2 at Patient Temp 86 mmHg (65-108) Arterial Blood HCO3 19 mmol/L (21-28) Arterial Blood Base Excess -5 mmol/L (-3-3) FiO2 40/vent Glucose (Fingerstick) 169 mg/dL (70-99) 132 mg/dL (70-99) 231 mg/dL (70-99) Test 05/13/21 05:41 05/13/21 06:08 05/13/21 07:45 Glucose (Fingerstick) 170 mg/dL (70-99) White Blood Count 14.5 x10^3/uL (4.0-11.0) Red Blood Count 3.31 x10^6/uL (4.30-5.70) Hemoglobin 8.8 g/dL (13.0-17.5) Hematocrit 26.7 % (39.0-53.0) Mean Corpuscular Volume 81 fL (79-100) Mean Corpuscular Hemoglobin 27 pg (25-35) Mean Corpuscular Hemoglobin Concent 33 g/dL (31-37) Red Cell Distribution Width 15.6 % (11.5-14.5) Platelet Count 311 x10^3/uL (140-400) Neutrophils (%) (Auto) 79 % (31-73) Lymphocytes (%) (Auto) 9 % (24-48) Monocytes (%) (Auto) 11 % (0-9) Eosinophils (%) (Auto) 1 % (0-3) Basophils (%) (Auto) 0 % (0-3) Neutrophils # (Auto) 11.4 x10^3/uL (1.8-7.7) Lymphocytes # (Auto) 1.3 x10^3/uL (1.0-4.8) Monocytes # (Auto) 1.6 x10^3/uL (0.0-1.1) Eosinophils # (Auto) 0.1 x10^3/uL (0.0-0.7) Basophils # (Auto) 0.0 x10^3/uL (0.0-0.2) Sodium Level 130 mmol/L (136-145) Potassium Level 3.3 mmol/L (3.5-5.1) Chloride Level 94 mmol/L (98-107) Carbon Dioxide Level 27 mmol/L (21-32) Anion Gap 9 (6-14) Blood Urea Nitrogen 28 mg/dL (8-26) Creatinine 2.3 mg/dL (0.7-1.3) Estimated GFR (Cockcroft-Gault) 33.8 Glucose Level 149 mg/dL (70-99) Calcium Level 8.3 mg/dL (8.5-10.1) O2 Saturation 96 % (92-99) Arterial Blood pH 7.45 (7.35-7.45) Arterial Blood pCO2 at Patient Temp 37 mmHg (35-46) Arterial Blood pO2 at Patient Temp 85 mmHg (65-108) Arterial Blood HCO3 25 mmol/L (21-28) Arterial Blood Base Excess 1 mmol/L (-3-3) FiO2 40/vent Laboratory Tests Test 05/12/21 12:15 05/12/21 18:23 05/13/21 00:11 05/13/21 05:41 Glucose (Fingerstick) 169 mg/dL (70-99) 132 mg/dL (70-99) 231 mg/dL (70-99) 170 mg/dL (70-99) Test 05/13/21 06:08 05/13/21 07:45 White Blood Count 14.5 x10^3/uL (4.0-11.0) Red Blood Count 3.31 x10^6/uL (4.30-5.70) Hemoglobin 8.8 g/dL (13.0-17.5) Hematocrit 26.7 % (39.0-53.0) Mean Corpuscular Volume 81 fL (79-100) Mean Corpuscular Hemoglobin 27 pg (25-35) Mean Corpuscular Hemoglobin Concent 33 g/dL (31-37) Red Cell Distribution Width 15.6 % (11.5-14.5) Platelet Count 311 x10^3/uL (140-400) Neutrophils (%) (Auto) 79 % (31-73) Lymphocytes (%) (Auto) 9 % (24-48) Monocytes (%) (Auto) 11 % (0-9) Eosinophils (%) (Auto) 1 % (0-3) Basophils (%) (Auto) 0 % (0-3) Neutrophils # (Auto) 11.4 x10^3/uL (1.8-7.7) Lymphocytes # (Auto) 1.3 x10^3/uL (1.0-4.8) Monocytes # (Auto) 1.6 x10^3/uL (0.0-1.1) Eosinophils # (Auto) 0.1 x10^3/uL (0.0-0.7) Basophils # (Auto) 0.0 x10^3/uL (0.0-0.2) Sodium Level 130 mmol/L (136-145) Potassium Level 3.3 mmol/L (3.5-5.1) Chloride Level 94 mmol/L (98-107) Carbon Dioxide Level 27 mmol/L (21-32) Anion Gap 9 (6-14) Blood Urea Nitrogen 28 mg/dL (8-26) Creatinine 2.3 mg/dL (0.7-1.3) Estimated GFR (Cockcroft-Gault) 33.8 Glucose Level 149 mg/dL (70-99) Calcium Level 8.3 mg/dL (8.5-10.1) O2 Saturation 96 % (92-99) Arterial Blood pH 7.45 (7.35-7.45) Arterial Blood pCO2 at Patient Temp 37 mmHg (35-46) Arterial Blood pO2 at Patient Temp 85 mmHg (65-108) Arterial Blood HCO3 25 mmol/L (21-28) Arterial Blood Base Excess 1 mmol/L (-3-3) FiO2 40/vent Microbiology 05/11/21 Gram Stain Evaluation - Final, Complete 05/11/21 Respiratory Culture - Final, Complete 05/04/21 Gram Stain - Final, Complete 05/04/21 Aerobic Culture - Final, Complete 05/04/21 Blood Culture - Final, Complete NO GROWTH AFTER 5 DAYS Medications Current Medications Propofol 100 ml @ As Directed STK-MED ONCE IV ; Start 04/24/21 at 12:36; Stop 04/24/21 at 12:36; Status DC Etomidate (Amidate) 20 mg STK-MED ONCE IV ; Start 04/24/21 at 13:38; Stop 04/24/21 at 13:38; Status DC Succinylcholine Chloride (Anectine) 200 mg STK-MED ONCE .ROUTE ; Start 04/24/21 at 13:38; Stop 04/24/21 at 13:38; Status DC Fentanyl Citrate (Fentanyl 2ml Vial) 50 mcg PRN Q1HR PRN IV PAIN; Start 04/24/21 at 14:00; Stop 04/24/21 at 14:14; Status DC Acetaminophen (Tylenol) 650 mg PRN Q6HRS PRN PO Headaches, Temp > 101.5' Last administered on 04/25/21at 17:31; Start 04/24/21 at 14:00 Ondansetron HCl (Zofran) 4 mg PRN Q6HRS PRN IVP NAUSEA/VOMITING; Start 04/24/21 at 14:00; Status Cancel Sodium Chloride (Normal Saline Flush) 3 ml QSHIFT PRN IV AFTER MEDS AND BLOOD DRAWS; Start 04/24/21 at 14:00 Fentanyl Citrate (Fentanyl 2ml Vial) 25 mcg PRN Q1HR PRN IV SEVERE PAIN 7-10; Start 04/24/21 at 14:00; Stop 04/24/21 at 14:14; Status DC Bisacodyl (Dulcolax Supp) 10 mg PRN DAILY PRN PA CONSTIPATION; Start 04/24/21 at 14:00 Fentanyl Citrate 30 ml @ 0 mls/hr CONT PRN IV SEE PROTOCOL; Start 04/24/21 at 14:00; Stop 04/24/21 at 14:12; Status DC Propofol 100 ml @ 0 mls/hr CONT PRN IV PER PROTOCOL Last administered on 04/24/21at 15:12; Start 04/24/21 at 14:00; Stop 04/24/21 at 15:19; Status DC Chlorhexidine Gluconate (Peridex) 15 ml BID MM Last administered on 04/24/21at 20:49; Start 04/24/21 at 21:00; Stop 04/25/21 at 11:19; Status DC Acetaminophen (Tylenol) 650 mg PRN Q6HRS PRN PO Headaches, Temp > 101.5'; Start 04/24/21 at 14:00; Status Cancel Ondansetron HCl (Zofran) 4 mg PRN Q6HRS PRN IVP NAUSEA/VOMITING; Start 04/24/21 at 14:00 Fentanyl Citrate (Fentanyl 2ml Vial) 25 mcg PRN Q1HR PRN IV SEVERE PAIN 7-10 Last administered on 04/24/21at 16:39; Start 04/24/21 at 14:00 Fentanyl Citrate 30 ml @ 0 mls/hr CONT PRN IV SEE PROTOCOL Last administered on 05/12/21at 23:02; Start 04/24/21 at 14:00 Aspirin (Ecotrin) 81 mg DAILYWBKFT PO Last administered on 05/02/21at 07:20; Start 04/25/21 at 08:00; Stop 05/03/21 at 09:56; Status DC Carvedilol (Coreg) 37.5 mg BIDWMEALS PO ; Start 04/24/21 at 17:00; Stop 04/24/21 at 16:17; Status DC Montelukast Sodium (Singulair) 10 mg HS PO Last administered on 05/12/21at 21:48; Start 04/24/21 at 21:00 Atorvastatin Calcium (Lipitor) 80 mg QHS PO Last administered on 05/12/21at 21:49; Start 04/24/21 at 21:00 Heparin Sodium (Porcine) (Heparin Sodium) 5,000 unit Q8HRS SQ ; Start 04/24/21 at 22:00; Status Cancel Furosemide (Lasix) 40 mg 1X ONCE IVP Last administered on 04/24/21at 16:45; Start 04/24/21 at 15:15; Stop 04/24/21 at 15:19; Status DC Propofol 100 ml @ 0 mls/hr CONT PRN IV PER PROTOCOL Last administered on 05/13/21at 06:59; Start 04/24/21 at 15:30 Carvedilol (Coreg) 3.125 mg BIDWMEALS PO Last administered on 04/25/21at 09:23; Start 04/24/21 at 17:00; Stop 04/25/21 at 15:42; Status DC Cefepime HCl (Maxipime) 2 gm 1X ONCE IVP Last administered on 04/24/21at 18:27; Start 04/24/21 at 16:30; Stop 04/24/21 at 16:31; Status DC Insulin Human Lispro (HumaLOG) 0-9 UNITS Q6HRS SQ Last administered on 05/03/21at 12:24; Start 04/24/21 at 18:00; Stop 05/03/21 at 13:51; Status DC Dextrose (Dextrose 50%-Water Syringe) 12.5 gm PRN Q15MIN PRN IV SEE COMMENTS Last administered on 05/03/21at 04:59; Start 04/24/21 at 16:30; Stop 05/03/21 at 13:54; Status DC Heparin Sodium/ Dextrose 250 ml @ 0 mls/hr CONT PRN IV PER PROTOCOL Last administered on 05/01/21at 05:10; Start 04/24/21 at 16:45; Stop 05/01/21 at 12:32; Status DC Heparin Sodium (Porcine) (Heparin Sodium) 3,200 unit PRN Q6HRS PRN IV FOR UFH LEVEL LESS THAN 0.2 Last administered on 04/24/21at 23:32; Start 04/24/21 at 16:45; Stop 05/01/21 at 12:32; Status DC Cefepime HCl (Maxipime) 1 gm Q12HR IVP Last administered on 04/27/21at 08:09; Start 04/25/21 at 09:00; Stop 04/27/21 at 09:17; Status DC Furosemide (Lasix) 40 mg 1X ONCE IVP ; Start 04/25/21 at 11:30; Stop 04/25/21 at 11:31; Status DC Metoprolol Tartrate (Lopressor Vial) 5 mg 1X ONCE IVP Last administered on 04/25/21at 11:27; Start 04/25/21 at 11:30; Stop 04/25/21 at 11:31; Status DC Info (Anti-Coagulation Monitoring By Pharmacy) 1 each PRN DAILY PRN MC PER PROTOCOL Last administered on 04/26/21at 08:51; Start 04/25/21 at 13:00; Stop 05/02/21 at 07:36; Status DC Digoxin (Lanoxin) 500 mcg 1X ONCE IV Last administered on 04/25/21at 14:52; Start 04/25/21 at 14:45; Stop 04/25/21 at 14:46; Status DC Hydralazine HCl (Apresoline Inj) 10 mg PRN Q4HRS PRN IVP ELEVATED BP, 1ST CHOICE Last administered on 05/11/21at 13:19; Start 04/25/21 at 14:45 Metoprolol Tartrate (Lopressor Vial) 5 mg Q6HRS IVP Last administered on 05/13/21at 00:18; Start 04/25/21 at 18:00 Dexamethasone Sodium Phosphate (Decadron) 6 mg DAILY IVP Last administered on 05/06/21at 08:38; Start 04/25/21 at 17:00; Stop 05/07/21 at 09:18; Status DC Remdesivir 200 mg/ Sodium Chloride 210 ml @ 210 mls/hr 1X ONCE IV Last administered on 04/25/21at 17:09; Start 04/25/21 at 17:30; Stop 04/25/21 at 18:29; Status DC Remdesivir 100 mg/ Sodium Chloride 230 ml @ 460 mls/hr Q24H IV Last administered on 04/29/21at 13:51; Start 04/26/21 at 17:30; Stop 04/29/21 at 17:59; Status DC Midazolam HCl 100 ml @ 0 mls/hr CONT PRN IV SEE PROTOCOL Last administered on 05/02/21at 19:58; Start 04/26/21 at 07:00 Pantoprazole Sodium (PROTONIX VIAL for IV PUSH) 40 mg DAILYAC IVP Last admini stered on 05/13/21at 08:16; Start 04/26/21 at 09:30 Norepinephrine Bitartrate 8 mg/ Dextrose 258 ml @ 25.349 mls/ hr CONT PRN IV PER PROTOCOL Last administered on 04/26/21at 17:53; Start 04/26/21 at 12:15; Stop 05/02/21 at 20:53; Status DC Digoxin (Lanoxin) 250 mcg 1X ONCE IV Last administered on 04/26/21at 15:02; Start 04/26/21 at 13:00; Stop 04/26/21 at 13:05; Status DC Amiodarone HCl 150 mg/Dextrose 103 ml @ 618 mls/hr 1X ONCE IV Last administered on 04/27/21at 02:30; Start 04/27/21 at 02:30; Stop 04/27/21 at 02:39; Status DC Amiodarone HCl 450 mg/Dextrose 259 ml @ 33 mls/hr CONT PRN IV SEE I/O RECORD; Start 04/27/21 at 02:30; Stop 04/30/21 at 07:56; Status DC Insulin Glargine (Lantus Syringe) 25 unit QHS SQ Last administered on 05/02/21at 21:23; Start 04/27/21 at 21:00; Stop 05/03/21 at 13:45; Status DC Cefepime HCl (Maxipime) 1 gm Q24H IVP Last administered on 05/03/21at 10:02; Start 04/28/21 at 09:30; Stop 05/03/21 at 13:19; Status DC Sodium Bicarbonate (Sodium Bicarb Adult 8.4% Syr) 50 meq 1X ONCE IV Last administered on 04/27/21at 09:50; Start 04/27/21 at 09:45; Stop 04/27/21 at 09:46; Status DC Lidocaine HCl (Buffered Lidocaine 1%) 3 ml STK-MED ONCE .ROUTE ; Start 04/27/21 at 10:57; Stop 04/27/21 at 10:58; Status DC Amiodarone HCl (Cordarone) 200 mg DAILY PO ; Start 04/27/21 at 12:00; Stop 04/27/21 at 12:29; Status DC Lidocaine HCl (Buffered Lidocaine 1%) 3 ml 1X ONCE INJ Last administered on 04/27/21at 11:15; Start 04/27/21 at 11:15; Stop 04/27/21 at 11:16; Status DC Amiodarone HCl (Cordarone) 200 mg DAILY PO Last administered on 05/13/21at 08:16; Start 04/28/21 at 09:00 Sodium Chloride 1,000 ml @ 1,000 mls/hr Q1H PRN IV hypotension; Start 04/28/21 at 11:00; Stop 04/28/21 at 16:59; Status DC Albumin Human 200 ml @ 200 mls/hr 1X PRN PRN IV Hypotension; Start 04/28/21 at 11:00; Stop 04/28/21 at 16:59; Status DC Sodium Chloride (Normal Saline Flush) 10 ml 1X PRN PRN IV AP catheter pack; Start 04/28/21 at 11:00; Stop 04/29/21 at 10:59; Status DC Sodium Chloride (Normal Saline Flush) 10 ml 1X PRN PRN IV LOCATOR catheter pack; Start 04/28/21 at 11:00; Stop 04/29/21 at 10:59; Status DC Sodium Chloride 1,000 ml @ 400 mls/hr Q2H30M PRN IV PATENCY; Start 04/28/21 at 11:00; Stop 04/28/21 at 22:59; Status DC Info (PHARMACY MONITORING -- do not chart) 1 each PRN DAILY PRN MC SEE COMMENTS; Start 04/28/21 at 11:00; Status UNV Info (PHARMACY MONITORING -- do not chart) 1 each PRN DAILY PRN MC SEE COMMENTS; Start 04/28/21 at 11:00; Stop 04/30/21 at 22:39; Status DC Magnesium Sulfate 50 ml @ 25 mls/hr PRN DAILY PRN IV for Mag < 1.7 on am labs; Start 04/29/21 at 10:45 Vecuronium [place] (Norcuron Bolus) 6 mg PRN Q6HRS PRN IV VENTILATOR COMPLIANCE Last administered on 05/11/21at 11:59; Start 04/30/21 at 11:15 Info (PHARMACY MONITORING -- do not chart) 1 each PRN DAILY PRN MC SEE COMMENTS; Start 04/30/21 at 12:30; Status Cancel Labetalol HCl (Normodyne Iv Push) 20 mg PRN Q2HR PRN IVP HYPERTENSION, 2ND CHOICE Last administered on 05/11/21at 13:35; Start 05/01/21 at 12:30 Heparin Sodium (Porcine) (Heparin Sodium) 5,000 unit Q8HRS SQ Last administered on 05/13/21at 05:57; Start 05/01/21 at 14:00 Furosemide (Lasix) 80 mg 1X ONCE IVP Last administered on 05/02/21at 10:45; Start 05/02/21 at 10:45; Stop 05/02/21 at 10:46; Status DC Furosemide (Lasix) 40 mg Q8HRS IVP Last administered on 05/13/21at 05:54; Start 05/02/21 at 14:00 Sodium Chloride 1,000 ml @ 1,000 mls/hr Q1H PRN IV hypotension; Start 05/02/21 at 11:30; Stop 05/02/21 at 17:29; Status DC Albumin Human 200 ml @ 200 mls/hr 1X PRN PRN IV Hypotension; Start 05/02/21 at 11:30; Stop 05/02/21 at 17:29; Status DC Sodium Chloride (Normal Saline Flush) 10 ml 1X PRN PRN IV AP catheter pack; Start 05/02/21 at 11:30; Stop 05/02/21 at 18:00; Status DC Sodium Chloride (Normal Saline Flush) 10 ml 1X PRN PRN IV LOCATOR catheter pack; Start 05/02/21 at 11:30; Stop 05/02/21 at 18:00; Status DC Sodium Chloride 1,000 ml @ 400 mls/hr Q2H30M PRN IV PATENCY; Start 05/02/21 at 11:30; Stop 05/02/21 at 23:29; Status DC Info (PHARMACY MONITORING -- do not chart) 1 each PRN DAILY PRN MC SEE COMMENTS; Start 05/02/21 at 11:30; Status UNV Info (PHARMACY MONITORING -- do not chart) 1 each PRN DAILY PRN MC SEE COMMENTS; Start 05/02/21 at 11:30; Status UNV Norepinephrine Bitartrate 8 mg/ Dextrose 258 ml @ 25.852 mls/ hr CONT PRN IV PER PROTOCOL Last administered on 05/02/21at 21:22; Start 05/02/21 at 21:00; Stop 05/09/21 at 06:10; Status DC Dextrose 1,000 ml @ 50 mls/hr Q20H IV Last administered on 05/03/21at 05:15; Start 05/03/21 at 05:15; Stop 05/03/21 at 13:53; Status DC Aspirin (Aspirin Chewable) 81 mg DAILYWBKFT PO Last administered on 05/13/21at 08:16; Start 05/03/21 at 10:00 Insulin Glargine (Lantus Syringe) 10 unit QHS SQ Last administered on 05/12/21at 21:53; Start 05/03/21 at 21:00 Insulin Human Lispro (HumaLOG) 0-5 UNITS Q6HRS SQ Last administered on 05/13/21at 05:58; Start 05/03/21 at 18:00 Dextrose (Dextrose 50%-Water Syringe) 12.5 gm PRN Q15MIN PRN IV SEE COMMENTS; Start 05/03/21 at 14:00 Sodium Chloride 1,000 ml @ 1,000 mls/hr Q1H PRN IV hypotension; Start 05/04/21 at 07:30; Stop 05/04/21 at 13:29; Status DC Albumin Human 200 ml @ 200 mls/hr 1X PRN PRN IV Hypotension Last administered on 05/04/21at 10:46; Start 05/04/21 at 07:30; Stop 05/04/21 at 13:29; Status DC Sodium Chloride (Normal Saline Flush) 10 ml 1X PRN PRN IV AP catheter pack; Start 05/04/21 at 07:30; Stop 05/05/21 at 07:29; Status DC Sodium Chloride (Normal Saline Flush) 10 ml 1X PRN PRN IV LOCATOR catheter pack; Start 05/04/21 at 07:30; Stop 05/05/21 at 07:29; Status DC Sodium Chloride 1,000 ml @ 400 mls/hr Q2H30M PRN IV PATENCY; Start 05/04/21 at 07:30; Stop 05/04/21 at 19:29; Status DC Info (PHARMACY MONITORING -- do not chart) 1 each PRN DAILY PRN MC SEE COMMENTS; Start 05/04/21 at 07:30; Status UNV Info (PHARMACY MONITORING -- do not chart) 1 each PRN DAILY PRN MC SEE COMMENTS; Start 05/04/21 at 07:30; Stop 05/07/21 at 08:47; Status DC Dexmedetomidine HCl 400 mcg/ Sodium Chloride 100 ml @ 0 mls/hr CONT PRN IV PER PROTOCOL Last administered on 05/13/21at 07:33; Start 05/04/21 at 10:30 Cefepime HCl (Maxipime) 1 gm Q24H IVP Last administered on 05/10/21at 16:31; Start 05/04/21 at 16:00; Stop 05/11/21 at 07:24; Status DC Daptomycin 600 mg/ Sodium Chloride 50 ml @ 100 mls/hr Q48H IV Last administered on 05/04/21at 15:24; Start 05/04/21 at 15:00; Stop 05/06/21 at 08:07; Status DC Potassium Chloride/Water 100 ml @ 100 mls/hr 1X ONCE IV Last administered on 05/06/21at 09:14; Start 05/06/21 at 08:30; Stop 05/06/21 at 09:29; Status DC Nicardipine HCl 50 mg/Sodium Chloride 250 ml @ 25 mls/hr CONT PRN IV SEE I/O RECORD Last administered on 05/08/21at 21:30; Start 05/06/21 at 18:45 Sodium Chloride 1,000 ml @ 1,000 mls/hr Q1H PRN IV hypotension; Start 05/07/21 at 08:45; Stop 05/07/21 at 14:44; Status DC Albumin Human 200 ml @ 200 mls/hr 1X PRN PRN IV Hypotension Last administered on 05/07/21at 11:41; Start 05/07/21 at 08:45; Stop 05/07/21 at 14:44; Status DC Sodium Chloride 1,000 ml @ 400 mls/hr Q2H30M PRN IV PATENCY; Start 05/07/21 at 08:45; Stop 05/07/21 at 20:44; Status DC Info (PHARMACY MONITORING -- do not chart) 1 each PRN DAILY PRN MC SEE COMMENTS; Start 05/07/21 at 08:45; Status UNV Info (PHARMACY MONITORING -- do not chart) 1 each PRN DAILY PRN MC SEE COMMENTS; Start 05/07/21 at 08:45 Albumin Human 100 ml @ 100 mls/hr 1X ONCE IV ; Start 05/07/21 at 11:45; Stop 05/07/21 at 12:44; Status DC Multi-Ingred Cream/Lotion/Oil/ Oint (Artificial Tears Eye Ointment) 1 danielito PRN Q1HR PRN OU DRY EYE Last administered on 05/10/21at 20:51; Start 05/07/21 at 16:00 Potassium Chloride/Water 100 ml @ 100 mls/hr Q1H IV Last administered on 05/08/21at 11:54; Start 05/08/21 at 11:00; Stop 05/08/21 at 12:59; Status DC Potassium Chloride/Water 100 ml @ 100 mls/hr Q1H IV Last administered on 05/09/21at 11:43; Start 05/09/21 at 10:00; Stop 05/09/21 at 11:59; Status DC Potassium Chloride/Water 100 ml @ 100 mls/hr Q1H IV Last administered on 05/10/21at 10:56; Start 05/10/21 at 10:00; Stop 05/10/21 at 11:59; Status DC Hydralazine HCl (Apresoline) 25 mg QID PO Last administered on 05/12/21at 21:49; Start 05/10/21 at 10:00 Amlodipine Besylate (Norvasc) 5 mg DAILY PO Last administered on 05/12/21at 08:55; Start 05/10/21 at 10:00 Magnesium Sulfate 50 ml @ 25 mls/hr 1X ONCE IV Last administered on 05/10/21at 14:36; Start 05/10/21 at 13:30; Stop 05/10/21 at 15:29; Status DC Linezolid/Dextrose 300 ml @ 300 mls/hr Q12HR IV Last administered on 05/13/21at 09:40; Start 05/11/21 at 09:00 Meropenem 500 mg/ Sodium Chloride 50 ml @ 100 mls/hr Q8HRS IV Last administered on 05/13/21at 05:53; Start 05/11/21 at 14:00 Potassium Chloride/Water 100 ml @ 100 mls/hr 1X ONCE IV Last administered on 05/12/21at 08:55; Start 05/12/21 at 07:00; Stop 05/12/21 at 07:59; Status DC Sodium Chloride 1,000 ml @ 1,000 mls/hr Q1H PRN IV hypotension; Start 05/12/21 at 13:00; Stop 05/12/21 at 21:00; Status DC Albumin Human 200 ml @ 200 mls/hr 1X PRN PRN IV Hypotension; Start 05/12/21 at 13:00; Stop 05/12/21 at 21:00; Status DC Sodium Chloride 1,000 ml @ 400 mls/hr Q2H30M PRN IV PATENCY; Start 05/12/21 at 13:00; Stop 05/12/21 at 21:00; Status DC Info (PHARMACY MONITORING -- do not chart) 1 each PRN DAILY PRN MC SEE COMMENTS; Start 05/12/21 at 12:45; Status UNV Info (PHARMACY MONITORING -- do not chart) 1 each PRN DAILY PRN MC SEE COMMENTS; Start 05/12/21 at 12:45; Status UNV Active Scripts Active Glyburide 2.5 Mg Tablet 1 Tab PO DAILY 14 Days Polyethylene Glycol 3350 17 Gm Powd.pack 17 Gm PO DAILY 14 Days Dok (Docusate Sodium) 100 Mg Capsule 100 Mg PO PRN DAILY PRN 30 Days Bisacodyl 5 Mg Tablet.dr 5 Mg PO PRN DAILY PRN 14 Days Acetaminophen 325 Mg Tablet 650 Mg PO PRN Q4HRS PRN 14 Days Aspirin Ec (Aspirin) 81 Mg Tablet.dr 81 Mg PO DAILYWBKFT 30 Days Hydralazine Hcl 25 Mg Tablet 25 Mg PO QID 30 Days Reported Fenofibrate 54 Mg Tablet 1 Tab PO DAILY Potassium Chloride (Potassium Chloride) 20 Meq Tablet.er 20 Meq PO DAILY Coreg (Carvedilol) 12.5 Mg Tablet 37.5 Mg PO BIDWMEALS Rosuvastatin Calcium 40 Mg Tablet 40 Mg PO QHS Gabapentin (Gabapentin) 100 Mg Capsule 200 Mg PO BID Montelukast Sodium Tablet (Montelukast Sodium) 10 Mg Tablet 10 Mg PO HS Protonix (Pantoprazole Sodium) 20 Mg Tablet.dr 2 Tab PO DAILY Amlodipine Besylate 5 Mg Tablet 5 Mg PO DAILY Furosemide 40 Mg Tablet 1 Tab PO DAILY Proair Hfa Inhaler (Albuterol Sulfate) 8.5 Gm Hfa.aer.ad 2 Puff IH PRN Q4-6HRS PRN 21 Days Advair 100-50 Diskus (Fluticasone/Salmeterol) 1 Each Disk.w.dev 1 Puff IH BID Vitals/I & O Vital Sign - Last 24 Hours 05/12/21 05/12/21 05/12/21 05/12/21 11:00 11:49 12:00 12:00 Pulse 64 54 Resp 20 B/P (MAP) 133/58 (83) 115/56 Pulse Ox 100 99 O2 Delivery Ventilator Ventilator Mechanical Ventilator 05/12/21 05/12/21 05/12/21 05/12/21 12:00 13:00 13:00 14:00 Temp 98.4 98.4 Pulse 60 51 51 51 Resp 20 20 20 B/P (MAP) 147/66 (93) 107/54 107/56 (73) 106/53 (70) Pulse Ox 100 100 100 O2 Delivery Ventilator Ventilator Ventilator 05/12/21 05/12/21 05/12/21 05/12/21 14:03 14:08 15:00 15:31 Temp 97.5 97.5 Pulse 51 50 50 Resp 20 20 B/P (MAP) 106/53 100/57 (71) 100/57 Pulse Ox 99 100 O2 Delivery Ventilator Ventilator 05/12/21 05/12/21 05/12/21 05/12/21 16:00 16:00 16:02 17:00 Temp 98.1 98.1 Pulse 50 55 Resp 20 20 B/P (MAP) 83/49 (60) 112/57 (75) Pulse Ox 100 100 100 O2 Delivery Ventilator Mechanical Ventilator Ventilator Ventilator 05/12/21 05/12/21 05/12/21 05/12/21 17:28 17:29 18:00 19:00 Pulse 55 59 60 Resp 20 20 B/P (MAP) 112/57 124/62 (82) 164/71 (102) Pulse Ox 100 100 100 O2 Delivery Ventilator Ventilator Ventilator 05/12/21 05/12/21 05/12/21 05/12/21 19:30 19:30 20:00 20:00 Temp 97.8 98.3 97.8 98.3 Pulse 54 54 60 Resp 20 20 20 B/P (MAP) 168/76 165/76 (105) 169/74 (105) Pulse Ox 100 100 O2 Delivery Ventilator Ventilator Mechanical Ventilator 05/12/21 05/12/21 05/12/21 05/12/21 20:25 20:30 21:00 21:30 Pulse 70 74 58 Resp 20 20 20 B/P (MAP) 191/77 (115) 182/73 (109) 156/71 (99) Pulse Ox 100 100 100 100 O2 Delivery Ventilator Ventilator Ventilator Ventilator 05/12/21 05/12/21 05/12/21 05/12/21 21:49 22:00 22:19 22:30 Pulse 57 62 66 Resp 20 20 B/P (MAP) 156/71 165/72 (103) 162/71 (101) Pulse Ox 100 100 100 O2 Delivery Ventilator Ventilator Ventilator 05/12/21 05/12/21 05/12/21 05/12/21 23:00 23:02 23:30 23:32 Pulse 62 68 Resp 20 20 20 20 B/P (MAP) 150/67 (94) 172/70 (104) Pulse Ox 100 100 100 100 O2 Delivery Ventilator Ventilator Ventilator Ventilator 05/12/21 05/13/21 05/13/21 05/13/21 23:59 00:00 00:18 00:30 Temp 98.2 98.2 Pulse 66 65 62 Resp 20 20 B/P (MAP) 167/63 (97) 165/60 172/66 (101) Pulse Ox 100 100 O2 Delivery Mechanical Ventilator Ventilator Ventilator 05/13/21 05/13/21 05/13/21 05/13/21 00:44 01:00 01:30 02:00 Pulse 62 60 56 Resp 20 20 20 B/P (MAP) 176/75 (108) 187/68 (107) 169/66 (100) Pulse Ox 100 100 100 100 O2 Delivery Ventilator Ventilator Ventilator Ventilator 05/13/21 05/13/21 05/13/21 05/13/21 02:30 03:00 03:30 03:55 Pulse 56 72 68 Resp 20 20 20 B/P (MAP) 178/76 (110) 112/80 (91) 106/74 (85) Pulse Ox 100 100 100 100 O2 Delivery Ventilator Ventilator Ventilator Ventilator 05/13/21 05/13/21 05/13/21 05/13/21 04:00 04:00 04:30 05:00 Temp 98.4 98.4 Pulse 61 58 58 Resp 20 20 20 B/P (MAP) 104/64 (77) 90/63 (72) 105/71 (82) Pulse Ox 99 100 100 O2 Delivery Ventilator Mechanical Ventilator Ventilator Ventilator 05/13/21 05/13/21 05/13/21 05/13/21 05:30 06:00 07:00 07:38 Pulse 62 64 56 Resp 20 20 20 B/P (MAP) 117/81 (93) 112/77 (89) 80/60 (67) Pulse Ox 100 100 100 100 O2 Delivery Ventilator Ventilator Ventilator Ventilator 05/13/21 05/13/21 05/13/21 05/13/21 08:00 08:00 08:16 08:16 Temp 98.1 98.1 Pulse 55 56 56 Resp 20 B/P (MAP) 100/69 (79) 80/60 80/60 Pulse Ox 100 O2 Delivery Ventilator Mechanical Ventilator 05/13/21 05/13/21 05/13/21 05/13/21 08:17 09:00 09:24 10:00 Pulse 56 60 55 Resp 20 20 B/P (MAP) 80/60 100/70 (80) 83/58 (66) Pulse Ox 100 100 100 O2 Delivery Ventilator Ventilator Ventilator Intake and Output 05/12/21 05/12/21 05/13/21 15:00 23:00 07:00 Intake Total 520 ml 3612 ml 1884 ml Output Total 530 ml 120 ml 650 ml Balance -10 ml 3492 ml 1234 ml Justicifation of Admission Dx: Justifications for Admission: Justification of Admission Dx: Yes Aspiration Pneumonia: Hemodynamic Instability ALBA SWAIN MD May 13, 2021 10:30
--- NOTE | 2021-05-13 12:08 | PDOC ---
DATE OF SERVICE DATE: 05/13/21 TIME: 12:05 SUBJECTIVE ROS Remains intubated No Overnight concerns OBJECTIVE Vital Signs Vital Signs Date Time Temp Pulse Resp B/P (MAP) Pulse Ox O2 Delivery O2 Flow Rate FiO2 05/13/21 11:00 53 20 93/64 (74) 100 Ventilator 05/13/21 08:00 98.1 98.1 I & 0 Intake and Output 05/13/21 07:00 Intake Total 6016 ml Output Total 1300 ml Balance 4716 ml IV Total 1960 ml Tube Feeding 2170 ml Blood Product IV Normal Saline Flush 325 ml Other 1561 ml Output Urine Total 1300 ml PHYSICAL EXAM Physical Exam GENERAL: intubated, HEENT: anicteric. ETT and OGT present. NECK: , right dialysis catheter+, HEART: S1, S2. LUNGS: Decreased breath sounds. ABDOMEN: Soft,bowel sounds present. GENITOURINARY: Nieves in place. EXTREMITIES: Edema present. DERMATOLOGIC: Warm, dry, no generalized rash. NEUROLOGIC: Intubated. PSYCHIATRIC: Unable to obtain. 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 Dialyzed Friday and Friday . Currently no emergent indication . Re-eval in the morning HypoKalemia- , 2/2 furosemide . 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 Recent CT Atrophic appearance of the right kidney. COVID-19 positive - Abnormal CT chest with bilateral diffuse interstitial infiltrates without any significant pleural effusion. Acute respiratory failure with Hypoxia Intubated ; CxR Mild pulmonary edema with new small right pleural effusion and basilar opacities. Unchanged small left pleural effusion and basilar opacities. Atrial Fib- per Cardiology Cholelithiasis Anemia . BETTY held 2/2 Hypercoagulable state Severe HypoAlbuminemia DM II Hypotension - Low BP, at presentation , resolved; Low again this morning, not requiring pressor support HTN- On antihypertensives @ home NSTEMI - possibly demand ischemia SIRS - likely sepsis from HCAP H/o bilateral Subclavian stenosis s/p left subclavian sent placement complicated by retroperitoneal hematoma s/p evacuation in 08/2015. COMMENT/RELEVANT DATA Meds Current Medications Medications (Trade) Dose Ordered Sig/Jodie Start Time Stop Time Status Last Admin Dose Admin Acetaminophen (Tylenol) 650 mg PRN Q6HRS PRN 04/24/21 14:00 Cancel Albumin Human 200 ml @ 200 mls/hr 1X PRN PRN 05/12/21 13:00 05/12/21 21:00 DC Amiodarone HCl (Cordarone) 200 mg DAILY 04/28/21 09:00 05/13/21 08:16 200 MG Amiodarone HCl 150 mg/Dextrose 103 ml @ 618 mls/hr 1X ONCE 04/27/21 02:30 04/27/21 02:39 DC 04/27/21 02:30 618 MLS/HR Amiodarone HCl 450 mg/Dextrose 259 ml @ 33 mls/hr CONT PRN 04/27/21 02:30 04/30/21 07:56 DC Amlodipine Besylate (Norvasc) 5 mg DAILY 05/10/21 10:00 05/12/21 08:55 5 MG Aspirin (Aspirin Chewable) 81 mg DAILYWBKFT 05/03/21 10:00 05/13/21 08:16 81 MG Aspirin (Ecotrin) 81 mg DAILYWBKFT 04/25/21 08:00 05/03/21 09:56 DC 05/02/21 07:20 81 MG Atorvastatin Calcium (Lipitor) 80 mg QHS 04/24/21 21:00 05/12/21 21:49 80 MG Bisacodyl (Dulcolax Supp) 10 mg PRN DAILY PRN 04/24/21 14:00 Carvedilol (Coreg) 3.125 mg BIDWMEALS 04/24/21 17:00 04/25/21 15:42 DC 04/25/21 09:23 3.125 MG Cefepime HCl (Maxipime) 1 gm Q24H 05/04/21 16:00 05/11/21 07:24 DC 05/10/21 16:31 1 GM Chlorhexidine Gluconate (Peridex) 15 ml BID 04/24/21 21:00 04/25/21 11:19 DC 04/24/21 20:49 15 ML Daptomycin 600 mg/ Sodium Chloride 50 ml @ 100 mls/hr Q48H 05/04/21 15:00 8/1/21 08:07 DC 05/04/21 15:24 100 MLS/HR Dexamethasone Sodium Phosphate (Decadron) 6 mg DAILY 04/25/21 17:00 05/07/21 09:18 DC 05/06/21 08:38 6 MG Dexmedetomidine HCl 400 mcg/ Sodium Chloride 100 ml @ 0 mls/hr CONT PRN 05/04/21 10:30 05/13/21 07:33 16.4 MLS/HR Dextrose (Dextrose 50%-Water Syringe) 12.5 gm PRN Q15MIN PRN 05/03/21 14:00 Digoxin (Lanoxin) 250 mcg 1X ONCE 04/26/21 13:00 04/26/21 13:05 DC 04/26/21 15:02 250 MCG Etomidate (Amidate) 20 mg STK-MED ONCE 04/24/21 13:38 04/24/21 13:38 DC Fentanyl Citrate 30 ml @ 0 mls/hr CONT PRN 04/24/21 14:00 05/13/21 10:56 2.5 MLS/HR Fentanyl Citrate (Fentanyl 2ml Vial) 25 mcg PRN Q1HR PRN 04/24/21 14:00 04/24/21 16:39 25 MCG Furosemide (Lasix) 40 mg Q8HRS 05/02/21 14:00 05/13/21 05:54 40 MG Heparin Sodium (Porcine) (Heparin Sodium) 5,000 unit Q8HRS 05/01/21 14:00 05/13/21 05:57 5,000 UNIT Heparin Sodium/ Dextrose 250 ml @ 0 mls/hr CONT PRN 04/24/21 16:45 05/01/21 12:32 DC 05/01/21 05:10 10 MLS/HR Hydralazine HCl (Apresoline Inj) 10 mg PRN Q4HRS PRN 04/25/21 14:45 05/11/21 13:19 10 MG Hydralazine HCl (Apresoline) 25 mg QID 05/10/21 10:00 05/12/21 21:49 25 MG Info (Anti-Coagulation Monitoring By Pharmacy) 1 each PRN DAILY PRN 04/25/21 13:00 05/02/21 07:36 VA 04/26/21 08:51 1 EACH Info (PHARMACY MONITORING -- do not chart) 1 each PRN DAILY PRN 05/12/21 12:45 UNV Insulin Glargine (Lantus Syringe) 10 unit QHS 05/03/21 21:00 05/12/21 21:53 10 UNIT Insulin Human Lispro (HumaLOG) 0-5 UNITS Q6HRS 05/03/21 18:00 05/13/21 05:58 2 UNITS Labetalol HCl (Normodyne Iv Push) 20 mg PRN Q2HR PRN 05/01/21 12:30 05/11/21 13:35 20 MG Lidocaine HCl (Buffered Lidocaine 1%) 3 ml 1X ONCE 04/27/21 11:15 04/27/21 11:16 DC 04/27/21 11:15 3 ML Linezolid/Dextrose 300 ml @ 300 mls/hr Q12HR 05/11/21 09:00 05/13/21 09:40 300 MLS/HR Magnesium Sulfate 50 ml @ 25 mls/hr 1X ONCE 05/10/21 13:30 05/10/21 15:29 DC 05/10/21 14:36 25 MLS/HR Meropenem 500 mg/ Sodium Chloride 50 ml @ 100 mls/hr Q8HRS 05/11/21 14:00 05/13/21 05:53 100 MLS/HR Metoprolol Tartrate (Lopressor Vial) 5 mg Q6HRS 04/25/21 18:00 05/13/21 00:18 5 MG Midazolam HCl 100 ml @ 0 mls/hr CONT PRN 04/26/21 07:00 05/02/21 19:58 6 MLS/HR Montelukast Sodium (Singulair) 10 mg HS 04/24/21 21:00 05/12/21 21:48 10 MG Multi-Ingred Cream/Lotion/Oil/ Oint (Artificial Tears Eye Ointment) 1 danielito PRN Q1HR PRN 05/07/21 16:00 05/10/21 20:51 1 DANIELITO Nicardipine HCl 50 mg/Sodium Chloride 250 ml @ 25 mls/hr CONT PRN 05/06/21 18:45 05/08/21 21:30 25 MLS/HR Norepinephrine Bitartrate 8 mg/ Dextrose 258 ml @ 25.852 mls/ hr CONT PRN 05/02/21 21:00 05/09/21 06:10 DC 05/02/21 21:22 25.852 MLS/HR Ondansetron HCl (Zofran) 4 mg PRN Q6HRS PRN 04/24/21 14:00 Pantoprazole Sodium (PROTONIX VIAL for IV PUSH) 40 mg DAILYAC 04/26/21 09:30 05/13/21 08:16 40 MG Potassium Chloride/Water 100 ml @ 100 mls/hr 1X ONCE 05/12/21 07:00 05/12/21 07:59 DC 05/12/21 08:55 100 MLS/HR Propofol 100 ml @ 0 mls/hr CONT PRN 04/24/21 15:30 05/13/21 11:06 23.6 MLS/HR Remdesivir 100 mg/ Sodium Chloride 230 ml @ 460 mls/hr Q24H 04/26/21 17:30 04/29/21 17:59 DC 04/29/21 13:51 460 MLS/HR Remdesivir 200 mg/ Sodium Chloride 210 ml @ 210 mls/hr 1X ONCE 04/25/21 17:30 04/25/21 18:29 DC 04/25/21 17:09 210 MLS/HR Sodium Bicarbonate (Sodium Bicarb Adult 8.4% Syr) 50 meq 1X ONCE 04/27/21 09:45 04/27/21 09:46 DC 04/27/21 09:50 50 MEQ Sodium Chloride 1,000 ml @ 400 mls/hr Q2H30M PRN 05/12/21 13:00 05/12/21 21:00 DC Sodium Chloride (Normal Saline Flush) 10 ml 1X PRN PRN 05/04/21 07:30 05/05/21 07:29 DC Succinylcholine Chloride (Anectine) 200 mg STK-MED ONCE 04/24/21 13:38 04/24/21 13:38 DC Vecuronium [place] (Norcuron Bolus) 6 mg PRN Q6HRS PRN 04/30/21 11:15 05/11/21 11:59 6 MG Lab Laboratory Tests Test 05/12/21 12:15 05/12/21 18:23 05/13/21 00:11 05/13/21 05:41 Glucose (Fingerstick) 169 mg/dL (70-99) 132 mg/dL (70-99) 231 mg/dL (70-99) 170 mg/dL (70-99) Test 05/13/21 06:08 05/13/21 07:45 White Blood Count 14.5 x10^3/uL (4.0-11.0) Red Blood Count 3.31 x10^6/uL (4.30-5.70) Hemoglobin 8.8 g/dL (13.0-17.5) Hematocrit 26.7 % (39.0-53.0) Mean Corpuscular Volume 81 fL (79-100) Mean Corpuscular Hemoglobin 27 pg (25-35) Mean Corpuscular Hemoglobin Concent 33 g/dL (31-37) Red Cell Distribution Width 15.6 % (11.5-14.5) Platelet Count 311 x10^3/uL (140-400) Neutrophils (%) (Auto) 79 % (31-73) Lymphocytes (%) (Auto) 9 % (24-48) Monocytes (%) (Auto) 11 % (0-9) Eosinophils (%) (Auto) 1 % (0-3) Basophils (%) (Auto) 0 % (0-3) Neutrophils # (Auto) 11.4 x10^3/uL (1.8-7.7) Lymphocytes # (Auto) 1.3 x10^3/uL (1.0-4.8) Monocytes # (Auto) 1.6 x10^3/uL (0.0-1.1) Eosinophils # (Auto) 0.1 x10^3/uL (0.0-0.7) Basophils # (Auto) 0.0 x10^3/uL (0.0-0.2) Sodium Level 130 mmol/L (136-145) Potassium Level 3.3 mmol/L (3.5-5.1) Chloride Level 94 mmol/L (98-107) Carbon Dioxide Level 27 mmol/L (21-32) Anion Gap 9 (6-14) Blood Urea Nitrogen 28 mg/dL (8-26) Creatinine 2.3 mg/dL (0.7-1.3) Estimated GFR (Cockcroft-Gault) 33.8 Glucose Level 149 mg/dL (70-99) Calcium Level 8.3 mg/dL (8.5-10.1) O2 Saturation 96 % (92-99) Arterial Blood pH 7.45 (7.35-7.45) Arterial Blood pCO2 at Patient Temp 37 mmHg (35-46) Arterial Blood pO2 at Patient Temp 85 mmHg (65-108) Arterial Blood HCO3 25 mmol/L (21-28) Arterial Blood Base Excess 1 mmol/L (-3-3) FiO2 40/vent Results All relevant outside records, renal labs, imaging studies, telemetry/EKG's were reviewed. Justicifation of Admission Dx: Justifications for Admission: Justification of Admission Dx: Yes Aspiration Pneumonia: Hemodynamic Instability JASMEET LAM MD May 13, 2021 12:08
[2021-05-13] MEDS ORDERED: POTASSIUM PHOS M BASIC D BASIC IV ONE (12:15)
[2021-05-13] MEDS ORDERED: POTASSIUM PHOS,M-BASIC-D-BASIC 20 MMOL in IV NORMAL SALINE 250ML 250 ML IV ONE (12:15)
[2021-05-13] MEDS ORDERED: POTASSIUM CHLORIDE 10MEQ 100 ML IV SCH ×3 (12:15)
[2021-05-13] MEDS ORDERED: NORMAL SALINE IV ONE (12:15)
[2021-05-13] MEDS: POTASSIUM CHLORIDE 20MEQ 100 ML IV SCH ×2 (14:05→15:10)
[2021-05-13] MEDS: ATORVASTATIN CALCIUM 40 MG TABLET. PO SCH (19:30)
[2021-05-13] MEDS: MONTELUKAST SODIUM 10 MG TABLET. PO SCH (19:30)
[2021-05-13] MEDS: INSULIN GLARGINE SYRINGE. SQ SCH (19:38)
[2021-05-14] VITALS (25 sets, daily range): BP systolic 86–226; BP diastolic 53–107
[2021-05-14] MEDS: INSULIN LISPRO 300 UNITS/3 ML VIAL. SQ SCH ×4 (00:21→17:58)
[2021-05-14] MEDS: METOPROLOL IV PUSH 5 MG/5 ML VIAL. IVP SCH ×5 (00:24→23:30)
[2021-05-14] MEDS: DEXMEDETOMIDINE 400 MCG in IV NORMAL SALINE 100ML 96 ML IV PRN ×4 (01:06→21:50)
[2021-05-14] MEDS: PROPOFOL 100 ML IV PRN ×6 (02:28→22:44)
[2021-05-14 05:24] LABS: ALBUMIN 1.5 g/dL (3.4-5.0); ALBUMIN/GLOBULIN RATIO 0.3 (1.0-1.7); CALCIUM 8.5 mg/dL (8.5-10.1); CREATININE 2.6 mg/dL (0.7-1.3); GFR 29.3; POTASSIUM 3.6 mmol/L (3.5-5.1); TOTAL BILIRUBIN 0.5 mg/dL (0.2-1.0); TOTAL PROTEIN 6.3 g/dL (6.4-8.2)
[2021-05-14] MEDS: FUROSEMIDE 40 MG/4 ML VIAL. IVP SCH ×3 (06:15→22:00)
[2021-05-14] MEDS: MEROPENEM 500 MG in IV NORMAL SALINE 50ML 50 ML IV SCH ×3 (06:15→22:02)
--- NOTE | 2021-05-14 06:17 | PDOC ---
PULMONARY PROGRESS NOTES DATE: 05/14/21 TIME: 06:14 Subjective Remains on ventilatory support 40%/peep of 5 Sedated on propofol, fentanyl, and Precedex Nursing reports bloody secretions from ET tube Vitals Vital Signs Date Time Temp Pulse Resp B/P (MAP) Pulse Ox O2 Delivery O2 Flow Rate FiO2 05/14/21 05:24 100 Ventilator 05/14/21 05:00 62 20 184/70 (108) 05/14/21 04:00 98.7 98.7 Comments Visual exam done due to COVID-19. Intubated and sedated No paradoxical breathing. Labs Laboratory Tests Test 05/12/21 08:00 05/12/21 12:15 05/12/21 18:23 05/13/21 00:11 O2 Saturation 96 % (92-99) Arterial Blood pH 7.40 (7.35-7.45) Arterial Blood pCO2 at Patient Temp 32 mmHg (35-46) Arterial Blood pO2 at Patient Temp 86 mmHg (65-108) Arterial Blood HCO3 19 mmol/L (21-28) Arterial Blood Base Excess -5 mmol/L (-3-3) FiO2 40/vent Glucose (Fingerstick) 169 mg/dL (70-99) 132 mg/dL (70-99) 231 mg/dL (70-99) Test 05/13/21 05:41 05/13/21 06:08 05/13/21 07:45 05/13/21 18:28 Glucose (Fingerstick) 170 mg/dL (70-99) 150 mg/dL (70-99) White Blood Count 14.5 x10^3/uL (4.0-11.0) Red Blood Count 3.31 x10^6/uL (4.30-5.70) Hemoglobin 8.8 g/dL (13.0-17.5) Hematocrit 26.7 % (39.0-53.0) Mean Corpuscular Volume 81 fL (79-100) Mean Corpuscular Hemoglobin 27 pg (25-35) Mean Corpuscular Hemoglobin Concent 33 g/dL (31-37) Red Cell Distribution Width 15.6 % (11.5-14.5) Platelet Count 311 x10^3/uL (140-400) Neutrophils (%) (Auto) 79 % (31-73) Lymphocytes (%) (Auto) 9 % (24-48) Monocytes (%) (Auto) 11 % (0-9) Eosinophils (%) (Auto) 1 % (0-3) Basophils (%) (Auto) 0 % (0-3) Neutrophils # (Auto) 11.4 x10^3/uL (1.8-7.7) Lymphocytes # (Auto) 1.3 x10^3/uL (1.0-4.8) Monocytes # (Auto) 1.6 x10^3/uL (0.0-1.1) Eosinophils # (Auto) 0.1 x10^3/uL (0.0-0.7) Basophils # (Auto) 0.0 x10^3/uL (0.0-0.2) Sodium Level 130 mmol/L (136-145) Potassium Level 3.3 mmol/L (3.5-5.1) Chloride Level 94 mmol/L (98-107) Carbon Dioxide Level 27 mmol/L (21-32) Anion Gap 9 (6-14) Blood Urea Nitrogen 28 mg/dL (8-26) Creatinine 2.3 mg/dL (0.7-1.3) Estimated GFR (Cockcroft-Gault) 33.8 Glucose Level 149 mg/dL (70-99) Calcium Level 8.3 mg/dL (8.5-10.1) O2 Saturation 96 % (92-99) Arterial Blood pH 7.45 (7.35-7.45) Arterial Blood pCO2 at Patient Temp 37 mmHg (35-46) Arterial Blood pO2 at Patient Temp 85 mmHg (65-108) Arterial Blood HCO3 25 mmol/L (21-28) Arterial Blood Base Excess 1 mmol/L (-3-3) FiO2 40/vent Test 05/14/21 00:10 05/14/21 04:46 Glucose (Fingerstick) 162 mg/dL (70-99) Sodium Level 129 mmol/L (136-145) Potassium Level 3.6 mmol/L (3.5-5.1) Chloride Level 94 mmol/L (98-107) Carbon Dioxide Level 26 mmol/L (21-32) Anion Gap 9 (6-14) Blood Urea Nitrogen 30 mg/dL (8-26) Creatinine 2.6 mg/dL (0.7-1.3) Estimated GFR (Cockcroft-Gault) 29.3 BUN/Creatinine Ratio 12 (6-20) Glucose Level 187 mg/dL (70-99) Calcium Level 8.5 mg/dL (8.5-10.1) Total Bilirubin 0.5 mg/dL (0.2-1.0) Aspartate Amino Transf (AST/SGOT) 35 U/L (15-37) Alanine Aminotransferase (ALT/SGPT) 27 U/L (16-63) Alkaline Phosphatase 82 U/L (46-116) Total Protein 6.3 g/dL (6.4-8.2) Albumin 1.5 g/dL (3.4-5.0) Albumin/Globulin Ratio 0.3 (1.0-1.7) Laboratory Tests Test 05/13/21 07:45 05/13/21 18:28 05/14/21 00:10 05/14/21 04:46 O2 Saturation 96 % (92-99) Arterial Blood pH 7.45 (7.35-7.45) Arterial Blood pCO2 at Patient Temp 37 mmHg (35-46) Arterial Blood pO2 at Patient Temp 85 mmHg (65-108) Arterial Blood HCO3 25 mmol/L (21-28) Arterial Blood Base Excess 1 mmol/L (-3-3) FiO2 40/vent Glucose (Fingerstick) 150 mg/dL (70-99) 162 mg/dL (70-99) Sodium Level 129 mmol/L (136-145) Potassium Level 3.6 mmol/L (3.5-5.1) Chloride Level 94 mmol/L (98-107) Carbon Dioxide Level 26 mmol/L (21-32) Anion Gap 9 (6-14) Blood Urea Nitrogen 30 mg/dL (8-26) Creatinine 2.6 mg/dL (0.7-1.3) Estimated GFR (Cockcroft-Gault) 29.3 BUN/Creatinine Ratio 12 (6-20) Glucose Level 187 mg/dL (70-99) Calcium Level 8.5 mg/dL (8.5-10.1) Total Bilirubin 0.5 mg/dL (0.2-1.0) Aspartate Amino Transf (AST/SGOT) 35 U/L (15-37) Alanine Aminotransferase (ALT/SGPT) 27 U/L (16-63) Alkaline Phosphatase 82 U/L (46-116) Total Protein 6.3 g/dL (6.4-8.2) Albumin 1.5 g/dL (3.4-5.0) Albumin/Globulin Ratio 0.3 (1.0-1.7) Medications Active Scripts Medications Dose Route/Sig Max Daily Dose Days Date Category Glyburide 2.5 Mg Tablet 1 Tab PO DAILY 04/19/21 Rx Polyethylene Glycol 3350 17 Gm Powd.pack 17 Gm PO DAILY 04/19/21 Rx Dok (Docusate Sodium) 100 Mg Capsule 100 Mg PO PRN DAILY PRN 04/19/21 Rx Bisacodyl 5 Mg Tablet.dr 5 Mg PO PRN DAILY PRN 04/19/21 Rx Acetaminophen 325 Mg Tablet 650 Mg PO PRN Q4HRS PRN 04/19/21 Rx Aspirin Ec (Aspirin) 81 Mg Tablet.dr 81 Mg PO DAILYWBKFT 04/19/21 Rx Hydralazine Hcl 25 Mg Tablet 25 Mg PO QID 04/19/21 Rx Fenofibrate 54 Mg Tablet 1 Tab PO DAILY 04/17/21 Reported Potassium Chloride (Potassium Chloride) 20 Meq Tablet.er 20 Meq PO DAILY 04/17/21 Reported Coreg (Carvedilol) 12.5 Mg Tablet 37.5 Mg PO BIDWMEALS 04/17/21 Reported Rosuvastatin Calcium 40 Mg Tablet 40 Mg PO QHS 04/17/21 Reported Gabapentin (Gabapentin) 100 Mg Capsule 200 Mg PO BID 04/17/21 Reported Montelukast Sodium Tablet (Montelukast Sodium) 10 Mg Tablet 10 Mg PO HS 04/17/21 Reported Protonix (Pantoprazole Sodium) 20 Mg Tablet.dr 2 Tab PO DAILY 04/17/21 Reported Amlodipine Besylate 5 Mg Tablet 5 Mg PO DAILY 04/17/21 Reported Furosemide 40 Mg Tablet 1 Tab PO DAILY 04/17/21 Reported Proair Hfa Inhaler (Albuterol Sulfate) 8.5 Gm Hfa.aer.ad 2 Puff IH PRN Q4-6HRS PRN 04/16/21 Reported Advair 100-50 Diskus (Fluticasone/Salmeterol) 1 Each Disk.w.dev 1 Puff IH BID 04/16/21 Reported Comments Impression . IMPRESSION: 1. Acute hypoxic respiratory failure, multifactorial/COVID-19 viral p neumonia/ARDS, ongoing, intubated 04/25/[address] chest with bilateral diffuse interstitial infiltrates without any significant pleural effusion 3. Leukocytosis, sepsis--ongoing ID following 4. Non-ST segment elevation [place] 5. History of tobacco use, suspect COPD, unknown FEV1 6. Chronic kidney disease.== Neph neurology following, hemodialysis currently on hold 7. Metabolic acidosis multifactorial 8. Abnormal chest x-ray 9. Hypoglycemia, continue to monitor--- resolved 10. Hypotension, suspect volume deficit,/possible sepsis--- resolved 11. Fever--resolved 12. Anemia Plan . Updated 05/14/21 Continue current vent support 20/500/40%/5 Follow ABG/CXR--changes as needed Follow ID recs for ABX --Continue cefepime, Zyvox Follow surgery recommendations plan for tracheostomy 05/15/2021 Follow nephrology recs-- HD --hemodialysis, Monitor hemoglobin Follow Cardiology recs--preserved LV function, hypertension Continue TF for nutritional support DVT/GI PPX:D/C subQ heparin 2/2 anemia D/W RN and RT Pt. is DNR Social work for DC planning--- LTACH question I have spoken to patient's daughter again this morning who is the DPOA. She will inform me in the next few hours about confirmation for tracheostomy. cct 30 min Updated 05/13/21 Continue current vent support 20/500/40%/5 Patient did not tolerate sedation vacation 05/11/2021, profoundly hypertensive Follow ABG/CXR--changes as needed Follow ID recs for ABX --Continue cefepime, now on Zyvox as well Follow surgery recommendations for tracheostomy, plan for tracheostomy 05/15/2021 Follow nephrology recs-- HD --hemodialysis, replace electrolytes per nephrology recommendations Monitor hemoglobin, no active signs of bleeding, transfuse if hemoglobin less than 7.0, panel and for packed red blood cells with hemodialysis, improved hemoglobin today. Follow Cardiology recs--preserved LV function, hypertension, continue TF for nutritional support DVT/GI PPX:D/C subQ heparin 2/2 anemia D/W RN and RT Pt. is DNR cct 30 min Updated 05/12/21 Continue current vent support 20/500/40%/5 Patient did not tolerate sedation vacation 05/11/2021, profoundly hypertensive Follow ABG/CXR--changes as needed Follow ID recs for ABX --Continue cefepime, now on Zyvox as well Follow surgery recommendations for tracheostomy, plan for tracheostomy 05/15/2021 Follow nephrology recs-- HD --hemodialysis, replace electrolytes per nephrology recommendations Monitor hemoglobin, no active signs of bleeding, transfuse if hemoglobin less than 7.0, panel and for packed red blood cells x1 today with hemodialysis Follow Cardiology recs--preserved LV function, hypertension, continue TF for nutritional support DVT/GI PPX:D/C subQ heparin 2/2 anemia D/W RN and RT Pt. is DNR cct 30 min JONES FISHMAN MD May 14, 2021 06:17
[2021-05-14 07:55] LABS: BASE EXCESS ABG -1 mmol/L (-3-3); HCO3 ABG 23 mmol/L (21-28); PCO2 ABG 34 mmHg (35-46); PO2 ABG 82 mmHg (65-108); SAT O2 ABG 96 % (92-99)
[2021-05-14 07:57] LABS: FIO2 ABG 40
--- NOTE | 2021-05-14 08:02 | PDOC ---
Infectious Disease Note Subjective: Subjective Patient intubated/sedated Vital Signs: Vital Signs Vital Signs Date Time Temp Pulse Resp B/P (MAP) Pulse Ox O2 Delivery O2 Flow Rate FiO2 05/14/21 07:42 100 Ventilator 05/14/21 07:01 53 20 166/82 (110) 05/14/21 04:00 98.7 98.7 Physical Exam: PHYSICAL EXAM GENERAL: Well-developed and well-nourished male, intubated, sedated. HEENT: Normocephalic, atraumatic, and anicteric. ETT and OGT present. NECK: right dialysis catheter present clean,central line changed ( 05/11) HEART: S1, S2. LUNGS: Decreased breath sounds. ABDOMEN: Soft, obese, bowel sounds present. GENITOURINARY: Nieves in place. EXTREMITIES: Edema present. DERMATOLOGIC: Warm, dry, no generalized rash. NEUROLOGIC: Intubated. PSYCHIATRIC: Unable to obtain. Medications: Inpatient Meds: Medications reviewed. Labs: Lab Laboratory Tests Test 05/13/21 18:28 05/14/21 00:10 05/14/21 04:46 05/14/21 06:21 Glucose (Fingerstick) 150 mg/dL (70-99) 162 mg/dL (70-99) 165 mg/dL (70-99) Sodium Level 129 mmol/L (136-145) Potassium Level 3.6 mmol/L (3.5-5.1) Chloride Level 94 mmol/L (98-107) Carbon Dioxide Level 26 mmol/L (21-32) Anion Gap 9 (6-14) Blood Urea Nitrogen 30 mg/dL (8-26) Creatinine 2.6 mg/dL (0.7-1.3) Estimated GFR (Cockcroft-Gault) 29.3 BUN/Creatinine Ratio 12 (6-20) Glucose Level 187 mg/dL (70-99) Calcium Level 8.5 mg/dL (8.5-10.1) Total Bilirubin 0.5 mg/dL (0.2-1.0) Aspartate Amino Transf (AST/SGOT) 35 U/L (15-37) Alanine Aminotransferase (ALT/SGPT) 27 U/L (16-63) Alkaline Phosphatase 82 U/L (46-116) Total Protein 6.3 g/dL (6.4-8.2) Albumin 1.5 g/dL (3.4-5.0) Albumin/Globulin Ratio 0.3 (1.0-1.7) Test 05/14/21 07:40 O2 Saturation 96 % (92-99) Arterial Blood pH 7.44 (7.35-7.45) Arterial Blood pCO2 at Patient Temp 34 mmHg (35-46) Arterial Blood pO2 at Patient Temp 82 mmHg (65-108) Arterial Blood HCO3 23 mmol/L (21-28) Arterial Blood Base Excess -1 mmol/L (-3-3) FiO2 40 Objective: Assessment: 1. Febrile illness could be healthcare-associated infection 2. Leukocytosis, on steroids. 3. COVID-19 pneumonia. 4. Acute hypoxic respiratory failure status post intubation. 5. Congestive heart failure, acute on chronic. 6. Acute kidney injury on chronic kidney disease on hemodialysis. 7. Diabetes mellitus 2. 8. Atrial fibrillation. 9. Anemia. 10. Protein-calorie malnutrition. 11. Hypertention Plan: Plan of Care 1. Continue Meropenem and zyvox, 05/11 had been on cefepime previously sputum culture neg so far 2. Follow-up labs and cultures 3. Central line changed on 05/11 4. C. difficile PCR negative 5. Continue supportive care. 6. Critically ill. Discussed with nursing staff ALAYNA RIVERO MD May 14, 2021 08:02
[2021-05-14] MEDS: hydrALAZINE 25 MG TABLET PO SCH ×4 (08:14→21:00)
[2021-05-14] MEDS: ASPIRIN CHEWABLE 81 MG TABLET. PO SCH (08:14)
[2021-05-14] MEDS: PANTOPRAZOLE IV PUSH 40 MG VIAL. IVP SCH (08:15)
[2021-05-14] MEDS: AMIODARONE HCL 200 MG TABLET. PO SCH (08:15)
[2021-05-14 08:38] LABS: BASO # 0.1 x10^3/uL (0.0-0.2); BASO % 1 % (0-3); EOS # 0.2 x10^3/uL (0.0-0.7); EOS % 1 % (0-3); HEMATOCRIT 25.7 % (39.0-53.0); HEMOGLOBIN 8.4 g/dL (13.0-17.5); LYMPH # 1.4 x10^3/uL (1.0-4.8); LYMPH % 11 % (24-48); MEAN CORPUSCULAR HEMOGLOBIN 27 pg (25-35); MEAN CORPUSCULAR HGB CONC 33 g/dL (31-37); MEAN CORPUSCULAR VOLUME 81 fL (79-100); MONO # 1.4 x10^3/uL (0.0-1.1); MONO % 11 % (0-9); NEUT # 10.2 x10^3/uL (1.8-7.7); NEUT % 76 % (31-73); PLATELET COUNT 269 x10^3/uL (140-400); RED BLOOD COUNT 3.16 x10^6/uL (4.30-5.70); RED CELL DISTRIBUTION WIDTH 15.7 % (11.5-14.5); WHITE BLOOD COUNT 13.4 x10^3/uL (4.0-11.0)
[2021-05-14 08:56] LABS: CALCIUM 8.1 mg/dL (8.5-10.1); CREATININE 2.7 mg/dL (0.7-1.3); GFR 28.1; POTASSIUM 3.4 mmol/L (3.5-5.1)
[2021-05-14] MEDS ORDERED: MAGNESIUM SULFATE 4GM 100 ML IV SCH (09:00)
[2021-05-14] MEDS: VECURONIUM BOLUS 10 MG VIAL. IV PRN (09:12)
--- NOTE | 2021-05-14 09:26 | PDOC ---
YESENIA AMES BATTERY MECH[employer]IC 05/14/21 0926: SURGICAL PROGRESS NOTE DATE: 05/14/21 TIME: 09:25 Subjective plan for trach tomorrow orders placed Vital Signs Vital Signs Date Time Temp Pulse Resp B/P (MAP) Pulse Ox O2 Delivery O2 Flow Rate FiO2 05/14/21 08:58 20 100 Ventilator 05/14/21 08:15 55 178/77 05/14/21 08:11 98.2 98.2 I&O Intake and Output 05/14/21 07:00 Intake Total 3692 ml Output Total 1300 ml Balance 2392 ml IV Total 1059 ml Tube Feeding 1793 ml Other 840 ml Output Urine Total 1300 ml Labs Laboratory Tests Test 05/12/21 12:15 05/12/21 18:23 05/13/21 00:11 05/13/21 05:41 Glucose (Fingerstick) 169 mg/dL (70-99) 132 mg/dL (70-99) 231 mg/dL (70-99) 170 mg/dL (70-99) Test 05/13/21 06:08 05/13/21 07:45 05/13/21 18:28 05/14/21 00:10 White Blood Count 14.5 x10^3/uL (4.0-11.0) Red Blood Count 3.31 x10^6/uL (4.30-5.70) Hemoglobin 8.8 g/dL (13.0-17.5) Hematocrit 26.7 % (39.0-53.0) Mean Corpuscular Volume 81 fL (79-100) Mean Corpuscular Hemoglobin 27 pg (25-35) Mean Corpuscular Hemoglobin Concent 33 g/dL (31-37) Red Cell Distribution Width 15.6 % (11.5-14.5) Platelet Count 311 x10^3/uL (140-400) Neutrophils (%) (Auto) 79 % (31-73) Lymphocytes (%) (Auto) 9 % (24-48) Monocytes (%) (Auto) 11 % (0-9) Eosinophils (%) (Auto) 1 % (0-3) Basophils (%) (Auto) 0 % (0-3) Neutrophils # (Auto) 11.4 x10^3/uL (1.8-7.7) Lymphocytes # (Auto) 1.3 x10^3/uL (1.0-4.8) Monocytes # (Auto) 1.6 x10^3/uL (0.0-1.1) Eosinophils # (Auto) 0.1 x10^3/uL (0.0-0.7) Basophils # (Auto) 0.0 x10^3/uL (0.0-0.2) Sodium Level 130 mmol/L (136-145) Potassium Level 3.3 mmol/L (3.5-5.1) Chloride Level 94 mmol/L (98-107) Carbon Dioxide Level 27 mmol/L (21-32) Anion Gap 9 (6-14) Blood Urea Nitrogen 28 mg/dL (8-26) Creatinine 2.3 mg/dL (0.7-1.3) Estimated GFR (Cockcroft-Gault) 33.8 Glucose Level 149 mg/dL (70-99) Calcium Level 8.3 mg/dL (8.5-10.1) O2 Saturation 96 % (92-99) Arterial Blood pH 7.45 (7.35-7.45) Arterial Blood pCO2 at Patient Temp 37 mmHg (35-46) Arterial Blood pO2 at Patient Temp 85 mmHg (65-108) Arterial Blood HCO3 25 mmol/L (21-28) Arterial Blood Base Excess 1 mmol/L (-3-3) FiO2 40/vent Glucose (Fingerstick) 150 mg/dL (70-99) 162 mg/dL (70-99) Test 05/14/21 04:46 05/14/21 06:21 05/14/21 07:40 05/14/21 08:30 Sodium Level 129 mmol/L (136-145) 130 mmol/L (136-145) Potassium Level 3.6 mmol/L (3.5-5.1) 3.4 mmol/L (3.5-5.1) Chloride Level 94 mmol/L (98-107) 95 mmol/L (98-107) Carbon Dioxide Level 26 mmol/L (21-32) 25 mmol/L (21-32) Anion Gap 9 (6-14) 10 (6-14) Blood Urea Nitrogen 30 mg/dL (8-26) 30 mg/dL (8-26) Creatinine 2.6 mg/dL (0.7-1.3) 2.7 mg/dL (0.7-1.3) Estimated GFR (Cockcroft-Gault) 29.3 28.1 BUN/Creatinine Ratio 12 (6-20) Glucose Level 187 mg/dL (70-99) 117 mg/dL (70-99) Calcium Level 8.5 mg/dL (8.5-10.1) 8.1 mg/dL (8.5-10.1) Total Bilirubin 0.5 mg/dL (0.2-1.0) Aspartate Amino Transf (AST/SGOT) 35 U/L (15-37) Alanine Aminotransferase (ALT/SGPT) 27 U/L (16-63) Alkaline Phosphatase 82 U/L (46-116) Total Protein 6.3 g/dL (6.4-8.2) Albumin 1.5 g/dL (3.4-5.0) Albumin/Globulin Ratio 0.3 (1.0-1.7) Glucose (Fingerstick) 165 mg/dL (70-99) O2 Saturation 96 % (92-99) Arterial Blood pH 7.44 (7.35-7.45) Arterial Blood pCO2 at Patient Temp 34 mmHg (35-46) Arterial Blood pO2 at Patient Temp 82 mmHg (65-108) Arterial Blood HCO3 23 mmol/L (21-28) Arterial Blood Base Excess -1 mmol/L (-3-3) FiO2 40 White Blood Count 13.4 x10^3/uL (4.0-11.0) Red Blood Count 3.16 x10^6/uL (4.30-5.70) Hemoglobin 8.4 g/dL (13.0-17.5) Hematocrit 25.7 % (39.0-53.0) Mean Corpuscular Volume 81 fL (79-100) Mean Corpuscular Hemoglobin 27 pg (25-35) Mean Corpuscular Hemoglobin Concent 33 g/dL (31-37) Red Cell Distribution Width 15.7 % (11.5-14.5) Platelet Count 269 x10^3/uL (140-400) Neutrophils (%) (Auto) 76 % (31-73) Lymphocytes (%) (Auto) 11 % (24-48) Monocytes (%) (Auto) 11 % (0-9) Eosinophils (%) (Auto) 1 % (0-3) Basophils (%) (Auto) 1 % (0-3) Neutrophils # (Auto) 10.2 x10^3/uL (1.8-7.7) Lymphocytes # (Auto) 1.4 x10^3/uL (1.0-4.8) Monocytes # (Auto) 1.4 x10^3/uL (0.0-1.1) Eosinophils # (Auto) 0.2 x10^3/uL (0.0-0.7) Basophils # (Auto) 0.1 x10^3/uL (0.0-0.2) Laboratory Tests Test 05/13/21 18:28 05/14/21 00:10 05/14/21 04:46 05/14/21 06:21 Glucose (Fingerstick) 150 mg/dL (70-99) 162 mg/dL (70-99) 165 mg/dL (70-99) Sodium Level 129 mmol/L (136-145) Potassium Level 3.6 mmol/L (3.5-5.1) Chloride Level 94 mmol/L (98-107) Carbon Dioxide Level 26 mmol/L (21-32) Anion Gap 9 (6-14) Blood Urea Nitrogen 30 mg/dL (8-26) Creatinine 2.6 mg/dL (0.7-1.3) Estimated GFR (Cockcroft-Gault) 29.3 BUN/Creatinine Ratio 12 (6-20) Glucose Level 187 mg/dL (70-99) Calcium Level 8.5 mg/dL (8.5-10.1) Total Bilirubin 0.5 mg/dL (0.2-1.0) Aspartate Amino Transf (AST/SGOT) 35 U/L (15-37) Alanine Aminotransferase (ALT/SGPT) 27 U/L (16-63) Alkaline Phosphatase 82 U/L (46-116) Total Protein 6.3 g/dL (6.4-8.2) Albumin 1.5 g/dL (3.4-5.0) Albumin/Globulin Ratio 0.3 (1.0-1.7) Test 05/14/21 07:40 05/14/21 08:30 O2 Saturation 96 % (92-99) Arterial Blood pH 7.44 (7.35-7.45) Arterial Blood pCO2 at Patient Temp 34 mmHg (35-46) Arterial Blood pO2 at Patient Temp 82 mmHg (65-108) Arterial Blood HCO3 23 mmol/L (21-28) Arterial Blood Base Excess -1 mmol/L (-3-3) FiO2 40 White Blood Count 13.4 x10^3/uL (4.0-11.0) Red Blood Count 3.16 x10^6/uL (4.30-5.70) Hemoglobin 8.4 g/dL (13.0-17.5) Hematocrit 25.7 % (39.0-53.0) Mean Corpuscular Volume 81 fL (79-100) Mean Corpuscular Hemoglobin 27 pg (25-35) Mean Corpuscular Hemoglobin Concent 33 g/dL (31-37) Red Cell Distribution Width 15.7 % (11.5-14.5) Platelet Count 269 x10^3/uL (140-400) Neutrophils (%) (Auto) 76 % (31-73) Lymphocytes (%) (Auto) 11 % (24-48) Monocytes (%) (Auto) 11 % (0-9) Eosinophils (%) (Auto) 1 % (0-3) Basophils (%) (Auto) 1 % (0-3) Neutrophils # (Auto) 10.2 x10^3/uL (1.8-7.7) Lymphocytes # (Auto) 1.4 x10^3/uL (1.0-4.8) Monocytes # (Auto) 1.4 x10^3/uL (0.0-1.1) Eosinophils # (Auto) 0.2 x10^3/uL (0.0-0.7) Basophils # (Auto) 0.1 x10^3/uL (0.0-0.2) Sodium Level 130 mmol/L (136-145) Potassium Level 3.4 mmol/L (3.5-5.1) Chloride Level 95 mmol/L (98-107) Carbon Dioxide Level 25 mmol/L (21-32) Anion Gap 10 (6-14) Blood Urea Nitrogen 30 mg/dL (8-26) Creatinine 2.7 mg/dL (0.7-1.3) Estimated GFR (Cockcroft-Gault) 28.1 Glucose Level 117 mg/dL (70-99) Calcium Level 8.1 mg/dL (8.5-10.1) Problem List Problems Medical Problems: (1) Elevated troponin Status: Acute (2) Person under investigation for COVID-19 Status: Acute (3) Pulmonary edema Status: Acute Justicifation of Admission Dx: Justifications for Admission: Justification of Admission Dx: Yes Aspiration Pneumonia: Hemodynamic Instability TIO CARSON MD 05/14/21 1420: SURGICAL PROGRESS NOTE Assessment/Plan Pt seen and examined. Agree with Ms. Ames's note TO OR in AM for tracheostomy. YESENIA AMES BAT[employer] MECH[employer]IC May 14, 2021 09:26 TIO CARSON MD May 14, 2021 14:20
[2021-05-14] MEDS: LABETALOL 20 MG/4 ML DISP.SYRIN. IVP PRN (09:44)
--- NOTE | 2021-05-14 09:51 | PDOC ---
Renal-Progress Notes Subjective Notes Notes ON THE VENT History of Present Illness Hx of present illness NO ACUTE CHANGES. CRITICALLY ILL Vitals Vitals Vital Signs Date Time Temp Pulse Resp B/P (MAP) Pulse Ox O2 Delivery O2 Flow Rate FiO2 05/14/21 09:44 60 195/100 05/14/21 09:28 20 100 Ventilator 05/14/21 08:11 98.2 98.2 Weight Weight [ ] I.O. Intake and Output Intake and Output 05/14/21 07:00 Intake Total 3692 ml Output Total 1300 ml Balance 2392 ml IV Total 1059 ml Tube Feeding 1793 ml Other 840 ml Output Urine Total 1300 ml Labs Labs Laboratory Tests Test 05/13/21 18:28 05/14/21 00:10 05/14/21 04:46 05/14/21 06:21 Glucose (Fingerstick) 150 mg/dL (70-99) 162 mg/dL (70-99) 165 mg/dL (70-99) Sodium Level 129 mmol/L (136-145) Potassium Level 3.6 mmol/L (3.5-5.1) Chloride Level 94 mmol/L (98-107) Carbon Dioxide Level 26 mmol/L (21-32) Anion Gap 9 (6-14) Blood Urea Nitrogen 30 mg/dL (8-26) Creatinine 2.6 mg/dL (0.7-1.3) Estimated GFR (Cockcroft-Gault) 29.3 BUN/Creatinine Ratio 12 (6-20) Glucose Level 187 mg/dL (70-99) Calcium Level 8.5 mg/dL (8.5-10.1) Total Bilirubin 0.5 mg/dL (0.2-1.0) Aspartate Amino Transf (AST/SGOT) 35 U/L (15-37) Alanine Aminotransferase (ALT/SGPT) 27 U/L (16-63) Alkaline Phosphatase 82 U/L (46-116) Total Protein 6.3 g/dL (6.4-8.2) Albumin 1.5 g/dL (3.4-5.0) Albumin/Globulin Ratio 0.3 (1.0-1.7) Test 05/14/21 07:40 05/14/21 08:30 O2 Saturation 96 % (92-99) Arterial Blood pH 7.44 (7.35-7.45) Arterial Blood pCO2 at Patient Temp 34 mmHg (35-46) Arterial Blood pO2 at Patient Temp 82 mmHg (65-108) Arterial Blood HCO3 23 mmol/L (21-28) Arterial Blood Base Excess -1 mmol/L (-3-3) FiO2 40 White Blood Count 13.4 x10^3/uL (4.0-11.0) Red Blood Count 3.16 x10^6/uL (4.30-5.70) Hemoglobin 8.4 g/dL (13.0-17.5) Hematocrit 25.7 % (39.0-53.0) Mean Corpuscular Volume 81 fL (79-100) Mean Corpuscular Hemoglobin 27 pg (25-35) Mean Corpuscular Hemoglobin Concent 33 g/dL (31-37) Red Cell Distribution Width 15.7 % (11.5-14.5) Platelet Count 269 x10^3/uL (140-400) Neutrophils (%) (Auto) 76 % (31-73) Lymphocytes (%) (Auto) 11 % (24-48) Monocytes (%) (Auto) 11 % (0-9) Eosinophils (%) (Auto) 1 % (0-3) Basophils (%) (Auto) 1 % (0-3) Neutrophils # (Auto) 10.2 x10^3/uL (1.8-7.7) Lymphocytes # (Auto) 1.4 x10^3/uL (1.0-4.8) Monocytes # (Auto) 1.4 x10^3/uL (0.0-1.1) Eosinophils # (Auto) 0.2 x10^3/uL (0.0-0.7) Basophils # (Auto) 0.1 x10^3/uL (0.0-0.2) Sodium Level 130 mmol/L (136-145) Potassium Level 3.4 mmol/L (3.5-5.1) Chloride Level 95 mmol/L (98-107) Carbon Dioxide Level 25 mmol/L (21-32) Anion Gap 10 (6-14) Blood Urea Nitrogen 30 mg/dL (8-26) Creatinine 2.7 mg/dL (0.7-1.3) Estimated GFR (Cockcroft-Gault) 28.1 Glucose Level 117 mg/dL (70-99) Calcium Level 8.1 mg/dL (8.5-10.1) Micro Micro Microbiology 05/11/21 Gram Stain Evaluation - Final, Complete 05/11/21 Respiratory Culture - Final, Complete 05/04/21 Gram Stain - Final, Complete 05/04/21 Aerobic Culture - Final, Complete 05/04/21 Blood Culture - Final, Complete NO GROWTH AFTER 5 DAYS Review of Systems Constitutional: yes: unresponsive, other (UNABLE TO OBTAIN) Physical Exam General Appearance: other (ON THE VENT) Respiratory: decreased breath sounds Heart: S1S2 Abdomen: bowel sounds present Genitourinary: bladder flat Extremities: atrophy Neurology: other (sedated) Musculoskeletal: Other Assessment Assessment IMP [id number] IMPROVING BUT NO CLEARANCE CKD - SUSPECT STAGE 3 ACUTE HYPOXIC RESP FAILURE-FIO2 INCREASED COVID 19 PNEUMONIA MET ACIDOSIS-BETTER LEUCOCYTOSIS HYPOKALEMIA-CORRECTED ANEMIA PLAN REMAINS CRITICALLY ILL VENT SUPPORT-FIO2 UP TO 40% NUTRITION-NEPRO TF HOLD BETTY DUE TO HYPERCOAGULABLE STATE PRESSORS NEEDED HD LAST ON SAT HOLD HD TODAY CONT TO MONITOR FOR RENAL RECOVERY CONT IV LASIX WILL FOLLOW JEANINE NEWTON MD May 14, 2021 09:51
--- NOTE | 2021-05-14 13:15 | PDOC ---
[employer] PROGRESS NOTE Date of Service DOS: DATE: 05/14/21 TIME: 13:13 Chief Complaint Chief Complaint Respiratory failure requiring intubation COVID- Acute DC A. fib SIRS Hypertension with hypertensive urgency Hyperlipidemia CKD Diabetes History of bilateral subclavian stenosis History of marijuana use Severe protein calorie malnutrition History of Present Illness History of Present Illness 05/14/21 Patient seen and examined at bedside Remains intubated and sedated planning for tracheostomy tomorrow Continue current respiratory support; continue antibiotics, continue sedation Follow recommendations of pulmonary, renal, and infectious disease Plan of care discussed with bedside nurse 05/13/2021 did not tolerate sedation vacation 05/11/2021, profoundly hypertensive ABG/CXR--changes as needed Continue iv cefepime , add zyvox, sputum culture VENT [id number]%, 5 of PEEP Mild pulmonary edema with new small right pleural effusion and basilar opacities now on cardene gtt prn Patient seen and examined in the [facility] [address] ICU remains mechanically ventilated ILDA on CKD - ATN 2/2 sepsis/ Hypotension,UOP good,on IV Lasix ; requiring dialysis, Sedated with propofol Dex and fentanyl Chart reviewed Discussed with RN He remains critically ill intubated/sedated cont cardene gtt not able to tolerate PS trial 05/06/21 Change central line and send cath tip for cultures. 05-09 C. difficile PCR ADELSO AVILA MD ORDERED: BCULT Procedure Result BLOOD CULTURE Final NO GROWTH AFTER 5 DAYS JONES FISHMAN MD, CHRISTOPHER S MD BLOOD CULTURE Preliminary NO GROWTH AFTER 4 DAYS 37 min cc time 05/12/2021 Continue iv cefepime , add zyvox, sputum culture VENT [id number]%, 5 of PEEP Mild pulmonary edema with new small right pleural effusion and basilar opacities now on cardene gtt prn Patient seen and examined in the [facility] [address] ICU remains mechanically ventilated ILDA on CKD - ATN 2/2 sepsis/ Hypotension,UOP good,on IV Lasix ; requiring dialysis, Sedated with propofol Dex and fentanyl Chart reviewed Discussed with RN He remains critically ill intubated/sedated cont cardene gtt not able to tolerate PS trial 05/06/21 Change central line and send cath tip for cultures. 05-09 C. difficile PCR JONES FISHMAN MD, CHRISTOPHER S MD SISILLO, SABATO MD ORDERED: BCULT Procedure Result BLOOD CULTURE Preliminary NO GROWTH AFTER 2 DAYS BLOOD CULTURE Preliminary NO GROWTH AFTER 4 DAYS 33 min cc time 05/11/2021 Continue iv cefepime , add zyvox, sputum culture VENT [id number]%, 5 of PEEP Mild pulmonary edema with new small right pleural effusion and basilar opacities now on cardene gtt prn Patient seen and examined in the [facility] remains mechanically ventilated ILDA on CKD - ATN 2/2 sepsis/ Hypotension,UOP good,on IV Lasix ; requiring dialysis, Sedated with propofol Dex and fentanyl Chart reviewed Discussed with RN He remains critically ill intubated/sedated cont cardene gtt not able to tolerate PS trial 05/06/21 Change central line and send cath tip for cultures. 05-09 C. difficile PCR JONES FISHMAN MD,ADELSO DASILVA MD, MD ORDERED: BCULT Procedure Result BLOOD CULTURE Preliminary NO GROWTH AFTER 2 DAYS --- --------- BLOOD CULTURE Preliminary NO GROWTH AFTER 4 DAYS 36 min cc time 05/10/2021 VENT [id number]%, 5 of PEEP Mild pulmonary edema with new small right pleural effusion and basilar opacities now on cardene gtt prn Patient seen and examined in the [id number] remains mechanically ventilated ILDA on CKD - ATN 2/2 sepsis/ Hypotension,UOP good,on IV Lasix ; requiring dialysis, Sedated with propofol Dex and fentanyl Chart reviewed Discussed with RN He remains critically ill intubated/sedated cont cardene gtt not able to tolerate PS trial 05/06/21 Change central line and send cath tip for cultures. 05-09 C. difficile PCR JONES FISHMAN MD,ADELSO DASILVA MD, MD ORDERED: BCULT Procedure Result BLOOD CULTURE Preliminary NO GROWTH AFTER 2 DAYS BLOOD CULTURE Preliminary NO GROWTH AFTER 4 DAYS 33 min cc time 05/09/2021 VENT [id number]%, 5 of PEEP Mild pulmonary edema with new small right pleural effusion and basilar opacities now on cardene gtt prn Patient seen and examined in the [facility] [address] ICU remains mechanically ventilated ILDA on CKD - ATN 2/2 sepsis/ Hypotension,UOP good,on IV Lasix ; requiring dialysis, Sedated with propofol Dex and fentanyl Chart reviewed Discussed with RN He remains critically ill intubated/sedated cont cardene gtt not able to tolerate PS trial 05/06/21 Change central line and send cath tip for cultures. 05-09 C. difficile PCR JONES FISHMAN MD,BRIAN AVILA,ADELSO POTTER ORDERED: BCULT Procedure Result BLOOD CULTURE Preliminary NO GROWTH AFTER 2 DAYS BLOOD CULTURE Preliminary NO GROWTH AFTER 4 DAYS 37 min cc time 05/08/2021 Currently on 40%, 5 of PEEP now on cardene gtt Patient seen and examined in the [facility] [address] ICU remains mechanically ventilated ILDA on CKD - ATN 2/2 sepsis/ Hypotension,UOP good,on IV Lasix ; requiring dialysis, AC/20/500/40 percent with 5 of PEEP Sedated with propofol Dex and fentanyl Chart reviewed Discussed with RN He remains critically ill intubated/sedated cont cardene gtt not able to tolerate PS trial 05/06/21 JONES FISHMAN MD, CHRISTOPHER S MD SISILLO, SABATO MD ORDERED: BCULT Procedure Result BLOOD CULTURE Preliminary NO GROWTH AFTER 2 DAYS BLOOD CULTURE Preliminary NO GROWTH AFTER 4 DAYS 33 min cc time 05/07/2021 Patient seen and examined in the [facility] [address] ICU He remains mechanically ventilated ILDA on CKD - ATN 2/2 sepsis/ Hypotension,UOP good,on IV Lasix ; requiring dialysis, AC/20/500/40 percent with 5 of PEEP Sedated with propofol Dex and fentanyl Chart reviewed Discussed with RN He remains critically ill intubated/sedated cont cardene gtt not able to tolerate PS trial 05/06/21 JONES FISHMAN MD,ADELSO DASILVA MD, MD ORDERED: BCULT Procedure Result BLOOD CULTURE Preliminary NO GROWTH AFTER 2 DAYS 36 min cc time 05/06/2021 Patient seen and examined in the [facility] [address] ICU He remains mechanically ventilated AC/20/500/40 percent with 5 of PEEP Sedated with propofol Dex and fentanyl Chart reviewed Discussed with RN He remains critically ill 05/05/2020 Patient seen and examined in the [facility] [address] ICU He remains on the vent AC/20/500/40 percent with 5 of PEEP Discussed with RN Chart reviewed Has SCDs in place Nieves to bedside drainage He remains critically ill 05/04/2021 Patient seen and examined in the [facility] [address] ICU Still intubated Sedated with propofol and fentanyl AC/20/500/70 percent with 5 of PEEP On dialysis currently Has SCDs in Nieves to bedside drainage Discussed with RN Chart reviewed 05/03/2021 Patient seen and examined in the [facility] [address] ICU He is still intubated AC/20/500/70 percent with 5 of PEEP Has SCDs in place Nieves to bedside drainage Sedated with fentanyl Versed and propofol Discussed are Chart reviewed Remains critically ill 05/02/2021 Patient seen and examined in the [facility] [address] ICU He is sedated with propofol fentanyl and Versed Ventilator settings as follow AC/20/500/40 percent with 5 of PEEP Has Nieves to bedside drainage Chart reviewed Discussed with RN He remains critically ill 05/01/2021 Patient seen and examined in the [facility] [address] ICU He is still intubated AC/20/500/40 percent with 5 of PEEP In A. fib Sedated with propofol fentanyl and Versed Has a heparin drip Missy with RN Chart reviewed He remains critically 04/30/2020 Patient seen and examined in the [facility] [address] ICU He remains on the vent AC/20/500/40 5% with 5 PEEP Currently on dialysis Has OG feeds running Has a Nieves to bedside drainage Sedated with propofol and fentanyl Reviewed chart Discussed with RN He remains critically ill Mr Cunha is a 75 yo male w/ PMHx CAD, HTN, Hyperlipidemia, subclavian steel syndrome, subclavian stenosis s/p left subclavian sent placement complicated by retroperitoneal hematoma s/p evacuation in 08/2015), asthma, BART, CKD, DM2 who presented from home with home health care noted that he was short of breath and valverde with O2 saturations less than 89% as low as 84% not improved with nasal cannulated oxygen placed on CPAP and brought to ED for further care. He was just discharged from the hospital a week ago on April 19, 2021 for abdominal pain and was going for further cardiac testing with outpatient stress testing scheduled on May 28, 2021. Had echocardiogram April 17, 2021 with normal-appearing EF with moderate concentric LVH no significant valvular abnormalities. WBC 20, Hb 10.7, platelets 268, NA 140, K3.8, BUN 21, CR 2.9, glucose 162, albumin 3, troponin I 1.372, NT proBNP 33,318. EKG appears sinus tachycardia rate of 105 bpm with multiple PACs small ST depressions in lead II and V5. TWI in V6. Chest radiograph with diffuse interstitial and alveolar opacities and ET tube 5.8 cm above the leilani. Due to worsening respiratory status ED physician elected to intubate patient. Seen postintubation. Blood pressure little low after propofol bolus, but improved. Significant white frothy sputum per ET tube. Admitted to ICU for further care 04/29/2021: Afebrile, remains on vent at FiO2 45%, PEEP 5. WBC 20.4. Hemodialysis per nephrology. We will continue treatment with empiric antibiotics, remdesivir, and steroids. Continue heparin infusion and supportive care. Critical care time 30 minutes reviewing chart, review labs, review imaging, discussion with RN. 04/28/2021: Afebrile. FiO2 50%, PEEP 5. Nontunneled HD catheter placed yesterday due to worsening kidney function; eGFR 16 (CKD4). Chest x-ray showed unchanged interstitial opacities. Continue empiric antibiotics, steroids, and remdesivir. Continue heparin infusion, and continue to follow cardiology recommendations on new diagnosis of A. fib. Critical care time 30 minutes reviewing chart, review labs, review imaging, discussion with RN. 04/27/2021: Afebrile. On vent with FiO2 50%, PEEP 5. Troponin 2.8 yesterday; probable type II, demand ischemia. New onset A. fib. Continue heparin drip and as needed digoxin, per cardiology. Continue treatment with remdesivir, steroids, and prophylactic antibiotics. CBG 323 this morning; will add basal insulin. Critical care 30 minutes spent reviewing labs, reviewing imaging, reviewing charts, and discussion with RN. 04/26/2021: COVID-19 positive. Febrile overnight that was managed with cooling blankets. On vent with FiO2 50%, PEEP 5. Per cardiology, elevated troponins likely secondary to demand ischemia; continue heparin drip per cardiology. Maintain fluid balance and avoid nephrotoxins. Continue treatment with remdesivir, steroids, and prophylactic antibiotics. 30 minutes critical care time spent reviewing charts, reviewing labs, reviewing imaging, and discussion with RN. 04/25/2021: On vent FiO2 50, PEEP 5. Febrile, T-max 103.3. Patient was initiated on cooling blankets. Procalcitonin 0.13. Continue coverage for hospital-acquired pneumonia with cefepime. MRSA PCR pending. Critical care time 30 minutes spent reviewing charts, reviewing labs, review of imaging, discussion with RN. Vitals/I&O Vitals/I&O: Vital Signs Date Time Temp Pulse Resp B/P (MAP) Pulse Ox O2 Delivery O2 Flow Rate FiO2 05/14/21 13:04 56 20 153/61 (91) 100 Ventilator 05/14/21 08:11 98.2 98.2 I & O 05/13/21 05/13/21 05/14/21 15:00 23:00 07:00 Intake Total 580 ml 2592 ml 520 ml Output Total 375 ml 535 ml 390 ml Balance 205 ml 2057 ml 130 ml Physical Exam Physical Exam: GENERAL: Well-developed and well-nourished male, intubated, sedated. HEENT: Normocephalic, atraumatic, and anicteric. ETT and OGT present. NECK: right dialysis catheter present clean,central line changed ( 05/11) HEART: S1, S2. LUNGS: Decreased breath sounds. ABDOMEN: Soft, obese, bowel sounds present. GENITOURINARY: Nieves in place. EXTREMITIES: Edema present. DERMATOLOGIC: Warm, dry, no generalized rash. NEUROLOGIC: Intubated. PSYCHIATRIC: Unable to obtain. General: No acute distress, Other (Intubated and sedated) Heart: Regular rate, Normal S1, Normal S2 Lungs: Other (Intubated) Abdomen: Normal bowel sounds, Other (ND) Extremities: No clubbing, No cyanosis Skin: No rashes, No breakdown, No significant lesion Labs Labs: Laboratory Tests Test 05/13/21 18:28 05/14/21 00:10 05/14/21 04:46 05/14/21 06:21 Glucose (Fingerstick) 150 mg/dL (70-99) 162 mg/dL (70-99) 165 mg/dL (70-99) Sodium Level 129 mmol/L (136-145) Potassium Level 3.6 mmol/L (3.5-5.1) Chloride Level 94 mmol/L (98-107) Carbon Dioxide Level 26 mmol/L (21-32) Anion Gap 9 (6-14) Blood Urea Nitrogen 30 mg/dL (8-26) Creatinine 2.6 mg/dL (0.7-1.3) Estimated GFR (Cockcroft-Gault) 29.3 BUN/Creatinine Ratio 12 (6-20) Glucose Level 187 mg/dL (70-99) Calcium Level 8.5 mg/dL (8.5-10.1) Total Bilirubin 0.5 mg/dL (0.2-1.0) Aspartate Amino Transf (AST/SGOT) 35 U/L (15-37) Alanine Aminotransferase (ALT/SGPT) 27 U/L (16-63) Alkaline Phosphatase 82 U/L (46-116) Total Protein 6.3 g/dL (6.4-8.2) Albumin 1.5 g/dL (3.4-5.0) Albumin/Globulin Ratio 0.3 (1.0-1.7) Test 05/14/21 07:40 05/14/21 08:30 O2 Saturation 96 % (92-99) Arterial Blood pH 7.44 (7.35-7.45) Arterial Blood pCO2 at Patient Temp 34 mmHg (35-46) Arterial Blood pO2 at Patient Temp 82 mmHg (65-108) Arterial Blood HCO3 23 mmol/L (21-28) Arterial Blood Base Excess -1 mmol/L (-3-3) FiO2 40 White Blood Count 13.4 x10^3/uL (4.0-11.0) Red Blood Count 3.16 x10^6/uL (4.30-5.70) Hemoglobin 8.4 g/dL (13.0-17.5) Hematocrit 25.7 % (39.0-53.0) Mean Corpuscular Volume 81 fL (79-100) Mean Corpuscular Hemoglobin 27 pg (25-35) Mean Corpuscular Hemoglobin Concent 33 g/dL (31-37) Red Cell Distribution Width 15.7 % (11.5-14.5) Platelet Count 269 x10^3/uL (140-400) Neutrophils (%) (Auto) 76 % (31-73) Lymphocytes (%) (Auto) 11 % (24-48) Monocytes (%) (Auto) 11 % (0-9) Eosinophils (%) (Auto) 1 % (0-3) Basophils (%) (Auto) 1 % (0-3) Neutrophils # (Auto) 10.2 x10^3/uL (1.8-7.7) Lymphocytes # (Auto) 1.4 x10^3/uL (1.0-4.8) Monocytes # (Auto) 1.4 x10^3/uL (0.0-1.1) Eosinophils # (Auto) 0.2 x10^3/uL (0.0-0.7) Basophils # (Auto) 0.1 x10^3/uL (0.0-0.2) Sodium Level 130 mmol/L (136-145) Potassium Level 3.4 mmol/L (3.5-5.1) Chloride Level 95 mmol/L (98-107) Carbon Dioxide Level 25 mmol/L (21-32) Anion Gap 10 (6-14) Blood Urea Nitrogen 30 mg/dL (8-26) Creatinine 2.7 mg/dL (0.7-1.3) Estimated GFR (Cockcroft-Gault) 28.1 Glucose Level 117 mg/dL (70-99) Calcium Level 8.1 mg/dL (8.5-10.1) Triglycerides Level 268 mg/dL (0-150) Assessment and Plan Assessmemt and Plan Problems Medical Problems: (1) Elevated troponin Status: Acute (2) Person under investigation for COVID-19 Status: Acute (3) Pulmonary edema Status: Acute Comment Review of Relevant I have reviewed the following items juanita (where applicable) has been applied. Justifications for Admission General Conditions Altered mental status?: Yes Justification of admission: Patient has tachycardia (> 100 beats per minute) or hypotension (SBP < 90 mm Hg) leading to inadequate systemic perfusion as indicated by severe/persistent altered mental status. Other Justification [facility]DA BRIAN JASSO MD May 14, 2021 13:15
--- NOTE | 2021-05-14 15:41 | NUR ---
SS following up with discharge planning. SS reviewed pt chart and discussed with pt RN. Pt is currently on the vent at 40%. COVID19 positive. Tentative trach placement scheduled for 05/15/2021. Pt on IV Meropenem and IV Zyvox. Pt on Propofol, Precedex, Fentanyl, and Cardene. SS will continue to follow for discharge planning.
--- NOTE | 2021-05-14 16:10 | PDOC ---
PROGRESS NOTES Date of Service DATE: 05/14/21 TIME: 16:08 Subjective Subjective Patient seen and evaluated. Objective Objective Vital Signs Date Time Temp Pulse Resp B/P (MAP) Pulse Ox O2 Delivery O2 Flow Rate FiO2 05/14/21 15:41 72 24 196/96 (129) 100 Ventilator 05/14/21 14:19 98.3 98.3 Intake and Output 05/14/21 07:00 Intake Total 3692 ml Output Total 1300 ml Balance 2392 ml IV Total 1059 ml Tube Feeding 1793 ml Other 840 ml Output Urine Total 1300 ml Physical Exam Physical Exam Visual examination as per Covid guidelines. Assessment Assessment Problems Medical Problems: (1) Elevated troponin Status: Acute (2) Person under investigation for COVID-19 Status: Acute (3) Pulmonary edema Status: Acute Acute respiratory failure secondary to CHF, s/p intubation. COVID +. Continuing present treatment. Followed by pulmonary. Acute on chronic diastolic CHF. Improved. Continue medical treatment. Hypertensive urgency; controlled. labile episodes NSTEMI; trop highest 2.8. Echo last week with preserved LV systolic function with moderate LVH. Most probable type II, demand ischemia in setting of above, although underling ischemic cannot be ruled out Hyperlipidemia; statin ILDA on CKD; requiring HD. Followed by renal. Diabetes, II H/o bilateral subclavian stenosis s/p left subclavian sent placement complicated by retroperitoneal hematoma s/p evacuation in 08/2015. New AFIB with RVR: maintaining SR with PACs Comment Review of Relevant I have reviewed the following items juanita (where applicable) has been applied. Labs Laboratory Tests Test 05/12/21 18:23 05/13/21 00:11 05/13/21 05:41 05/13/21 06:08 Glucose (Fingerstick) 132 mg/dL (70-99) 231 mg/dL (70-99) 170 mg/dL (70-99) White Blood Count 14.5 x10^3/uL (4.0-11.0) Red Blood Count 3.31 x10^6/uL (4.30-5.70) Hemoglobin 8.8 g/dL (13.0-17.5) Hematocrit 26.7 % (39.0-53.0) Mean Corpuscular Volume 81 fL (79-100) Mean Corpuscular Hemoglobin 27 pg (25-35) Mean Corpuscular Hemoglobin Concent 33 g/dL (31-37) Red Cell Distribution Width 15.6 % (11.5-14.5) Platelet Count 311 x10^3/uL (140-400) Neutrophils (%) (Auto) 79 % (31-73) Lymphocytes (%) (Auto) 9 % (24-48) Monocytes (%) (Auto) 11 % (0-9) Eosinophils (%) (Auto) 1 % (0-3) Basophils (%) (Auto) 0 % (0-3) Neutrophils # (Auto) 11.4 x10^3/uL (1.8-7.7) Lymphocytes # (Auto) 1.3 x10^3/uL (1.0-4.8) Monocytes # (Auto) 1.6 x10^3/uL (0.0-1.1) Eosinophils # (Auto) 0.1 x10^3/uL (0.0-0.7) Basophils # (Auto) 0.0 x10^3/uL (0.0-0.2) Sodium Level 130 mmol/L (136-145) Potassium Level 3.3 mmol/L (3.5-5.1) Chloride Level 94 mmol/L (98-107) Carbon Dioxide Level 27 mmol/L (21-32) Anion Gap 9 (6-14) Blood Urea Nitrogen 28 mg/dL (8-26) Creatinine 2.3 mg/dL (0.7-1.3) Estimated GFR (Cockcroft-Gault) 33.8 Glucose Level 149 mg/dL (70-99) Calcium Level 8.3 mg/dL (8.5-10.1) Test 05/13/21 07:45 05/13/21 18:28 05/14/21 00:10 05/14/21 04:46 O2 Saturation 96 % (92-99) Arterial Blood pH 7.45 (7.35-7.45) Arterial Blood pCO2 at Patient Temp 37 mmHg (35-46) Arterial Blood pO2 at Patient Temp 85 mmHg (65-108) Arterial Blood HCO3 25 mmol/L (21-28) Arterial Blood Base Excess 1 mmol/L (-3-3) FiO2 40/vent Glucose (Fingerstick) 150 mg/dL (70-99) 162 mg/dL (70-99) Sodium Level 129 mmol/L (136-145) Potassium Level 3.6 mmol/L (3.5-5.1) Chloride Level 94 mmol/L (98-107) Carbon Dioxide Level 26 mmol/L (21-32) Anion Gap 9 (6-14) Blood Urea Nitrogen 30 mg/dL (8-26) Creatinine 2.6 mg/dL (0.7-1.3) Estimated GFR (Cockcroft-Gault) 29.3 BUN/Creatinine Ratio 12 (6-20) Glucose Level 187 mg/dL (70-99) Calcium Level 8.5 mg/dL (8.5-10.1) Total Bilirubin 0.5 mg/dL (0.2-1.0) Aspartate Amino Transf (AST/SGOT) 35 U/L (15-37) Alanine Aminotransferase (ALT/SGPT) 27 U/L (16-63) Alkaline Phosphatase 82 U/L (46-116) Total Protein 6.3 g/dL (6.4-8.2) Albumin 1.5 g/dL (3.4-5.0) Albumin/Globulin Ratio 0.3 (1.0-1.7) Test 05/14/21 06:21 05/14/21 07:40 05/14/21 08:30 Glucose (Fingerstick) 165 mg/dL (70-99) O2 Saturation 96 % (92-99) Arterial Blood pH 7.44 (7.35-7.45) Arterial Blood pCO2 at Patient Temp 34 mmHg (35-46) Arterial Blood pO2 at Patient Temp 82 mmHg (65-108) Arterial Blood HCO3 23 mmol/L (21-28) Arterial Blood Base Excess -1 mmol/L (-3-3) FiO2 40 White Blood Count 13.4 x10^3/uL (4.0-11.0) Red Blood Count 3.16 x10^6/uL (4.30-5.70) Hemoglobin 8.4 g/dL (13.0-17.5) Hematocrit 25.7 % (39.0-53.0) Mean Corpuscular Volume 81 fL (79-100) Mean Corpuscular Hemoglobin 27 pg (25-35) Mean Corpuscular Hemoglobin Concent 33 g/dL (31-37) Red Cell Distribution Width 15.7 % (11.5-14.5) Platelet Count 269 x10^3/uL (140-400) Neutrophils (%) (Auto) 76 % (31-73) Lymphocytes (%) (Auto) 11 % (24-48) Monocytes (%) (Auto) 11 % (0-9) Eosinophils (%) (Auto) 1 % (0-3) Basophils (%) (Auto) 1 % (0-3) Neutrophils # (Auto) 10.2 x10^3/uL (1.8-7.7) Lymphocytes # (Auto) 1.4 x10^3/uL (1.0-4.8) Monocytes # (Auto) 1.4 x10^3/uL (0.0-1.1) Eosinophils # (Auto) 0.2 x10^3/uL (0.0-0.7) Basophils # (Auto) 0.1 x10^3/uL (0.0-0.2) Sodium Level 130 mmol/L (136-145) Potassium Level 3.4 mmol/L (3.5-5.1) Chloride Level 95 mmol/L (98-107) Carbon Dioxide Level 25 mmol/L (21-32) Anion Gap 10 (6-14) Blood Urea Nitrogen 30 mg/dL (8-26) Creatinine 2.7 mg/dL (0.7-1.3) Estimated GFR (Cockcroft-Gault) 28.1 Glucose Level 117 mg/dL (70-99) Calcium Level 8.1 mg/dL (8.5-10.1) Triglycerides Level 268 mg/dL (0-150) Laboratory Tests Test 05/13/21 18:28 05/14/21 00:10 05/14/21 04:46 05/14/21 06:21 Glucose (Fingerstick) 150 mg/dL (70-99) 162 mg/dL (70-99) 165 mg/dL (70-99) Sodium Level 129 mmol/L (136-145) Potassium Level 3.6 mmol/L (3.5-5.1) Chloride Level 94 mmol/L (98-107) Carbon Dioxide Level 26 mmol/L (21-32) Anion Gap 9 (6-14) Blood Urea Nitrogen 30 mg/dL (8-26) Creatinine 2.6 mg/dL (0.7-1.3) Estimated GFR (Cockcroft-Gault) 29.3 BUN/Creatinine Ratio 12 (6-20) Glucose Level 187 mg/dL (70-99) Calcium Level 8.5 mg/dL (8.5-10.1) Total Bilirubin 0.5 mg/dL (0.2-1.0) Aspartate Amino Transf (AST/SGOT) 35 U/L (15-37) Alanine Aminotransferase (ALT/SGPT) 27 U/L (16-63) Alkaline Phosphatase 82 U/L (46-116) Total Protein 6.3 g/dL (6.4-8.2) Albumin 1.5 g/dL (3.4-5.0) Albumin/Globulin Ratio 0.3 (1.0-1.7) Test 05/14/21 07:40 05/14/21 08:30 O2 Saturation 96 % (92-99) Arterial Blood pH 7.44 (7.35-7.45) Arterial Blood pCO2 at Patient Temp 34 mmHg (35-46) Arterial Blood pO2 at Patient Temp 82 mmHg (65-108) Arterial Blood HCO3 23 mmol/L (21-28) Arterial Blood Base Excess -1 mmol/L (-3-3) FiO2 40 White Blood Count 13.4 x10^3/uL (4.0-11.0) Red Blood Count 3.16 x10^6/uL (4.30-5.70) Hemoglobin 8.4 g/dL (13.0-17.5) Hematocrit 25.7 % (39.0-53.0) Mean Corpuscular Volume 81 fL (79-100) Mean Corpuscular Hemoglobin 27 pg (25-35) Mean Corpuscular Hemoglobin Concent 33 g/dL (31-37) Red Cell Distribution Width 15.7 % (11.5-14.5) Platelet Count 269 x10^3/uL (140-400) Neutrophils (%) (Auto) 76 % (31-73) Lymphocytes (%) (Auto) 11 % (24-48) Monocytes (%) (Auto) 11 % (0-9) Eosinophils (%) (Auto) 1 % (0-3) Basophils (%) (Auto) 1 % (0-3) Neutrophils # (Auto) 10.2 x10^3/uL (1.8-7.7) Lymphocytes # (Auto) 1.4 x10^3/uL (1.0-4.8) Monocytes # (Auto) 1.4 x10^3/uL (0.0-1.1) Eosinophils # (Auto) 0.2 x10^3/uL (0.0-0.7) Basophils # (Auto) 0.1 x10^3/uL (0.0-0.2) Sodium Level 130 mmol/L (136-145) Potassium Level 3.4 mmol/L (3.5-5.1) Chloride Level 95 mmol/L (98-107) Carbon Dioxide Level 25 mmol/L (21-32) Anion Gap 10 (6-14) Blood Urea Nitrogen 30 mg/dL (8-26) Creatinine 2.7 mg/dL (0.7-1.3) Estimated GFR (Cockcroft-Gault) 28.1 Glucose Level 117 mg/dL (70-99) Calcium Level 8.1 mg/dL (8.5-10.1) Triglycerides Level 268 mg/dL (0-150) Microbiology 05/11/21 Gram Stain Evaluation - Final, Complete 05/11/21 Respiratory Culture - Final, Complete 05/04/21 Gram Stain - Final, Complete 05/04/21 Aerobic Culture - Final, Complete 05/04/21 Blood Culture - Final, Complete NO GROWTH AFTER 5 DAYS Medications Current Medications Propofol 100 ml @ As Directed STK-MED ONCE IV ; Start 04/24/21 at 12:36; Stop 04/24/21 at 12:36; Status DC Etomidate (Amidate) 20 mg STK-MED ONCE IV ; Start 04/24/21 at 13:38; Stop 04/06 at 13:38; Status DC Succinylcholine Chloride (Anectine) 200 mg STK-MED ONCE .ROUTE ; Start 04/24/21 at 13:38; Stop 04/24/21 at 13:38; Status DC Fentanyl Citrate (Fentanyl 2ml Vial) 50 mcg PRN Q1HR PRN IV PAIN; Start 04/24/21 at 14:00; Stop 04/24/21 at 14:14; Status DC Acetaminophen (Tylenol) 650 mg PRN Q6HRS PRN PO Headaches, Temp > 101.5' Last administered on 04/25/21at 17:31; Start 04/24/21 at 14:00 Ondansetron HCl (Zofran) 4 mg PRN Q6HRS PRN IVP NAUSEA/VOMITING; Start 04/24/21 at 14:00; Status Cancel Sodium Chloride (Normal Saline Flush) 3 ml QSHIFT PRN IV AFTER MEDS AND BLOOD DRAWS; Start 04/24/21 at 14:00 Fentanyl Citrate (Fentanyl 2ml Vial) 25 mcg PRN Q1HR PRN IV SEVERE PAIN 7-10; Start 04/24/21 at 14:00; Stop 04/24/21 at 14:14; Status DC Bisacodyl (Dulcolax Supp) 10 mg PRN DAILY PRN NV CONSTIPATION; Start 04/24/21 at 14:00 Fentanyl Citrate 30 ml @ 0 mls/hr CONT PRN IV SEE PROTOCOL; Start 04/24/21 at 14:00; Stop 04/24/21 at 14:12; Status DC Propofol 100 ml @ 0 mls/hr CONT PRN IV PER PROTOCOL Last administered on 04/24/21at 15:12; Start 04/24/21 at 14:00; Stop 04/24/21 at 15:19; Status DC Chlorhexidine Gluconate (Peridex) 15 ml BID MM Last administered on 04/24/21at 20:49; Start 04/24/21 at 21:00; Stop 04/25/21 at 11:19; Status DC Acetaminophen (Tylenol) 650 mg PRN Q6HRS PRN PO Headaches, Temp > 101.5'; Start 04/24/21 at 14:00; Status Cancel Ondansetron HCl (Zofran) 4 mg PRN Q6HRS PRN IVP NAUSEA/VOMITING; Start 04/24/21 at 14:00 Fentanyl Citrate (Fentanyl 2ml Vial) 25 mcg PRN Q1HR PRN IV SEVERE PAIN 7-10 Last administered on 04/24/21at 16:39; Start 04/24/21 at 14:00 Fentanyl Citrate 30 ml @ 0 mls/hr CONT PRN IV SEE PROTOCOL Last administered on 05/14/21at 08:58; Start 04/24/21 at 14:00 Aspirin (Ecotrin) 81 mg DAILYWBKFT PO Last administered on 05/02/21at 07:20; Start 04/25/21 at 08:00; Stop 05/03/21 at 09:56; Status DC Carvedilol (Coreg) 37.5 mg BIDWMEALS PO ; Start 04/24/21 at 17:00; Stop 04/24/21 at 16:17; Status DC Montelukast Sodium (Singulair) 10 mg HS PO Last administered on 05/13/21 19:30; Start 04/24/21 at 21:00 Atorvastatin Calcium (Lipitor) 80 mg QHS PO Last administered on 05/13/21 19:30; Start 04/24/21 at 21:00 Heparin Sodium (Porcine) (Heparin Sodium) 5,000 unit Q8HRS SQ ; Start 04/24/21 at 22:00; Status Cancel Furosemide (Lasix) 40 mg 1X ONCE IVP Last administered on 04/24/21at 16:45; Start 04/24/21 at 15:15; Stop 04/24/21 at 15:19; Status DC Propofol 100 ml @ 0 mls/hr CONT PRN IV PER PROTOCOL Last administered on 05/14/21at 14:19; Start 04/24/21 at 15:30 Carvedilol (Coreg) 3.125 mg BIDWMEALS PO Last administered on 04/25/21 09:23; Start 04/24/21 at 17:00; Stop 04/25/21 at 15:42; Status DC Cefepime HCl (Maxipime) 2 gm 1X ONCE IVP Last administered on 04/24/21at 18:27; Start 04/24/21 at 16:30; Stop 04/24/21 at 16:31; Status DC Insulin Human Lispro (HumaLOG) 0-9 UNITS Q6HRS SQ Last administered on 05/03/21at 12:24; Start 04/24/21 at 18:00; Stop 05/03/21 at 13:51; Status DC Dextrose (Dextrose 50%-Water Syringe) 12.5 gm PRN Q15MIN PRN IV SEE COMMENTS Last administered on 05/03/21at 04:59; Start 04/24/21 at 16:30; Stop 05/03/21 at 13:54; Status DC Heparin Sodium/ Dextrose 250 ml @ 0 mls/hr CONT PRN IV PER PROTOCOL Last administered on 05/01/21at 05:10; Start 04/24/21 at 16:45; Stop 05/01/21 at 12:32; Status DC Heparin Sodium (Porcine) (Heparin Sodium) 3,200 unit PRN Q6HRS PRN IV FOR UFH LEVEL LESS THAN 0.2 Last administered on 04/24/21at 23:32; Start 04/24/21 at 16:45; Stop 05/01/21 at 12:32; Status DC Cefepime HCl (Maxipime) 1 gm Q12HR IVP Last administered on 04/27/21at 08:09; Start 04/25/21 at 09:00; Stop 04/27/21 at 09:17; Status DC Furosemide (Lasix) 40 mg 1X ONCE IVP ; Start 04/25/21 at 11:30; Stop 04/25/21 at 11:31; Status DC Metoprolol Tartrate (Lopressor Vial) 5 mg 1X ONCE IVP Last administered on 04/25/21at 11:27; Start 04/25/21 at 11:30; Stop 04/25/21 at 11:31; Status DC Info (Anti-Coagulation Monitoring By Pharmacy) 1 each PRN DAILY PRN MC PER PROTOCOL Last administered on 04/26/21at 08:51; Start 04/25/21 at 13:00; Stop 05/02/21 at 07:36; Status DC Digoxin (Lanoxin) 500 mcg 1X ONCE IV Last administered on 04/25/21at 14:52; Start 04/25/21 at 14:45; Stop 04/25/21 at 14:46; Status DC Hydralazine HCl (Apresoline Inj) 10 mg PRN Q4HRS PRN IVP ELEVATED BP, 1ST CHOICE Last administered on 05/11/21at 13:19; Start 04/25/21 at 14:45 Metoprolol Tartrate (Lopressor Vial) 5 mg Q6HRS IVP Last administered on 05/14/21at 06:18; Start 04/25/21 at 18:00 Dexamethasone Sodium Phosphate (Decadron) 6 mg DAILY IVP Last administered on 05/06/21at 08:38; Start 04/25/21 at 17:00; Stop 05/07/21 at 09:18; Status DC Remdesivir 200 mg/ Sodium Chloride 210 ml @ 210 mls/hr 1X ONCE IV Last administered on 04/25/21at 17:09; Start 04/25/21 at 17:30; Stop 04/25/21 at 18:29; Status DC Remdesivir 100 mg/ Sodium Chloride 230 ml @ 460 mls/hr Q24H IV Last administered on 04/29/21at 13:51; Start 04/26/21 at 17:30; Stop 04/29/21 at 17:59; Status DC Midazolam HCl 100 ml @ 0 mls/hr CONT PRN IV SEE PROTOCOL Last administered on 05/02/21at 19:58; Start 04/26/21 at 07:00 Pantoprazole Sodium (PROTONIX VIAL for IV PUSH) 40 mg DAILYAC IVP Last administered on 05/14/21at 08:15; Start 04/26/21 at 09:30 Norepinephrine Bitartrate 8 mg/ Dextrose 258 ml @ 25.349 mls/ hr CONT PRN IV PER PROTOCOL Last administered on 04/26/21at 17:53; Start 04/26/21 at 12:15; Sto p 05/02/21 at 20:53; Status DC Digoxin (Lanoxin) 250 mcg 1X ONCE IV Last administered on 04/26/21at 15:02; Start 04/26/21 at 13:00; Stop 04/26/21 at 13:05; Status DC Amiodarone HCl 150 mg/Dextrose 103 ml @ 618 mls/hr 1X ONCE IV Last administered on 04/27/21at 02:30; Start 04/27/21 at 02:30; Stop 04/27/21 at 02:39; Status DC Amiodarone HCl 450 mg/Dextrose 259 ml @ 33 mls/hr CONT PRN IV SEE I/O RECORD; Start 04/27/21 at 02:30; Stop 04/30/21 at 07:56; Status DC Insulin Glargine (Lantus Syringe) 25 unit QHS SQ Last administered on 05/02/21at 21:23; Start 04/27/21 at 21:00; Stop 05/03/21 at 13:45; Status DC Cefepime HCl (Maxipime) 1 gm Q24H IVP Last administered on 05/03/21at 10:02; Start 04/28/21 at 09:30; Stop 05/03/21 at 13:19; Status DC Sodium Bicarbonate (Sodium Bicarb Adult 8.4% Syr) 50 meq 1X ONCE IV Last administered on 04/27/21at 09:50; Start 04/27/21 at 09:45; Stop 04/27/21 at 09:46; Status DC Lidocaine HCl (Buffered Lidocaine 1%) 3 ml STK-MED ONCE .ROUTE ; Start 04/27/21 at 10:57; Stop 04/27/21 at 10:58; Status DC Amiodarone HCl (Cordarone) 200 mg DAILY PO ; Start 04/27/21 at 12:00; Stop 04/27/21 at 12:29; Status DC Lidocaine HCl (Buffered Lidocaine 1%) 3 ml 1X ONCE INJ Last administered on 04/27/21at 11:15; Start 04/27/21 at 11:15; Stop 04/27/21 at 11:16; Status DC Amiodarone HCl (Cordarone) 200 mg DAILY PO Last administered on 05/14/21at 08:15; Start 04/28/21 at 09:00 Sodium Chloride 1,000 ml @ 1,000 mls/hr Q1H PRN IV hypotension; Start 04/28/21 at 11:00; Stop 04/28/21 at 16:59; Status DC Albumin Human 200 ml @ 200 mls/hr 1X PRN PRN IV Hypotension; Start 04/28/21 at 11:00; Stop 04/28/21 at 16:59; Status DC Sodium Chloride (Normal Saline Flush) 10 ml 1X PRN PRN IV AP catheter pack; Start 04/28/21 at 11:00; Stop 04/29/21 at 10:59; Status DC Sodium Chloride (Normal Saline Flush) 10 ml 1X PRN PRN IV WATER CHASER catheter pack; Start 04/28/21 at 11:00; Stop 04/29/21 at 10:59; Status DC Sodium Chloride 1,000 ml @ 400 mls/hr Q2H30M PRN IV PATENCY; Start 04/28/21 at 11:00; Stop 04/28/21 at 22:59; Status DC Info (PHARMACY MONITORING -- do not chart) 1 each PRN DAILY PRN MC SEE COMMENTS; Start 04/28/21 at 11:00; Status UNV Info (PHARMACY MONITORING -- do not chart) 1 each PRN DAILY PRN MC SEE COMMENTS; Start 04/28/21 at 11:00; Stop 04/30/21 at 22:39; Status DC Magnesium Sulfate 50 ml @ 25 mls/hr PRN DAILY PRN IV for Mag < 1.7 on am labs; Start 04/29/21 at 10:45; Stop 05/13/21 at 12:18; Status DC Vecuronium [place] (Norcuron Bolus) 6 mg PRN Q6HRS PRN IV VENTILATOR COMPLIANCE Last administered on 05/14/21at 09:12; Start 04/30/21 at 11:15 Info (PHARMACY MONITORING -- do not chart) 1 each PRN DAILY PRN MC SEE COMMENTS; Start 04/30/21 at 12:30; Status Cancel Labetalol HCl (Normodyne Iv Push) 20 mg PRN Q2HR PRN IVP HYPERTENSION, 2ND CHOICE Last administered on 05/14/21at 09:44; Start 05/01/21 at 12:30 Heparin Sodium (Porcine) (Heparin Sodium) 5,000 unit Q8HRS SQ Last administered on 05/13/21at 05:57; Start 05/01/21 at 14:00; Stop 05/14/21 at 06:14; Status DC Furosemide (Lasix) 80 mg 1X ONCE IVP Last administered on 05/02/21at 10:45; Start 05/02/21 at 10:45; Stop 05/02/21 at 10:46; Status DC Furosemide (Lasix) 40 mg Q8HRS IVP Last administered on 05/14/21at 06:15; Start 05/02/21 at 14:00 Sodium Chloride 1,000 ml @ 1,000 mls/hr Q1H PRN IV hypotension; Start 05/02/21 at 11:30; Stop 05/02/21 at 17:29; Status DC Albumin Human 200 ml @ 200 mls/hr 1X PRN PRN IV Hypotension; Start 05/02/21 at 11:30; Stop 05/02/21 at 17:29; Status DC Sodium Chloride (Normal Saline Flush) 10 ml 1X PRN PRN IV AP catheter pack; Start 05/02/21 at 11:30; Stop 05/02/21 at 18:00; Status DC Sodium Chloride (Normal Saline Flush) 10 ml 1X PRN PRN IV WATER CHASER catheter pack; Start 05/02/21 at 11:30; Stop 05/02/21 at 18:00; Status DC Sodium Chloride 1,000 ml @ 400 mls/hr Q2H30M PRN IV PATENCY; Start 05/02/21 at 11:30; Stop 05/02/21 at 23:29; Status DC Info (PHARMACY MONITORING -- do not chart) 1 each PRN DAILY PRN MC SEE COMMENTS; Start 05/02/21 at 11:30; Status UNV Info (PHARMACY MONITORING -- do not chart) 1 each PRN DAILY PRN MC SEE CO MMENTS; Start 05/02/21 at 11:30; Status UNV Norepinephrine Bitartrate 8 mg/ Dextrose 258 ml @ 25.852 mls/ hr CONT PRN IV PER PROTOCOL Last administered on 05/02/21at 21:22; Start 05/02/21 at 21:00; Stop 05/09/21 at 06:10; Status DC Dextrose 1,000 ml @ 50 mls/hr Q20H IV Last administered on 05/03/21at 05:15; Start 05/03/21 at 05:15; Stop 05/03/21 at 13:53; Status DC Aspirin (Aspirin Chewable) 81 mg DAILYWBKFT PO Last administered on 05/14/21at 08:14; Start 05/03/21 at 10:00 Insulin Glargine (Lantus Syringe) 10 unit QHS SQ Last administered on 05/13/21at 19:38; Start 05/03/21 at 21:00 Insulin Human Lispro (HumaLOG) 0-5 UNITS Q6HRS SQ Last administered on 05/14/21at 06:22; Start 05/03/21 at 18:00 Dextrose (Dextrose 50%-Water Syringe) 12.5 gm PRN Q15MIN PRN IV SEE COMMENTS; Start 05/03/21 at 14:00 Sodium Chloride 1,000 ml @ 1,000 mls/hr Q1H PRN IV hypotension; Start 05/04/21 at 07:30; Stop 05/04/21 at 13:29; Status DC Albumin Human 200 ml @ 200 mls/hr 1X PRN PRN IV Hypotension Last administered on 05/04/21at 10:46; Start 05/04/21 at 07:30; Stop 05/04/21 at 13:29; Status DC Sodium Chloride (Normal Saline Flush) 10 ml 1X PRN PRN IV AP catheter pack; Start 05/04/21 at 07:30; Stop 05/05/21 at 07:29; Status DC Sodium Chloride (Normal Saline Flush) 10 ml 1X PRN PRN IV WATER CHASER catheter pack; Start 05/04/21 at 07:30; Stop 05/05/21 at 07:29; Status DC Sodium Chloride 1,000 ml @ 400 mls/hr Q2H30M PRN IV PATENCY; Start 05/04/21 at 07:30; Stop 05/04/21 at 19:29; Status DC Info (PHARMACY MONITORING -- do not chart) 1 each PRN DAILY PRN MC SEE COMMENTS; Start 05/04/21 at 07:30; Status UNV Info (PHARMACY MONITORING -- do not chart) 1 each PRN DAILY PRN MC SEE COMMENTS; Start 05/04/21 at 07:30; Stop 05/07/21 at 08:47; Status DC Dexmedetomidine HCl 400 mcg/ Sodium Chloride 100 ml @ 0 mls/hr CONT PRN IV PER PROTOCOL Last administered on 05/14/21at 14:30; Start 05/04/21 at 10:30 Cefepime HCl (Maxipime) 1 gm Q24H IVP Last administered on 05/10/21at 16:31; Start 05/04/21 at 16:00; Stop 05/11/21 at 07:24; Status DC Daptomycin 600 mg/ Sodium Chloride 50 ml @ 100 mls/hr Q48H IV Last administered on 05/04/21at 15:24; Start 05/04/21 at 15:00; Stop 05/06/21 at 08:07; Status DC Potassium Chloride/Water 100 ml @ 100 mls/hr 1X ONCE IV Last administered on 05/06/21at 09:14; Start 05/06/21 at 08:30; Stop 05/06/21 at 09:29; Status DC Nicardipine HCl 50 mg/Sodium Chloride 250 ml @ 25 mls/hr CONT PRN IV SEE I/O RECORD Last administered on 05/14/21at 10:20; Start 05/06/21 at 18:45 Sodium Chloride 1,000 ml @ 1,000 mls/hr Q1H PRN IV hypotension; Start 05/07/21 at 08:45; Stop 05/07/21 at 14:44; Status DC Albumin Human 200 ml @ 200 mls/hr 1X PRN PRN IV Hypotension Last administered on 05/07/21at 11:41; Start 05/07/21 at 08:45; Stop 05/07/21 at 14:44; Status DC Sodium Chloride 1,000 ml @ 400 mls/hr Q2H30M PRN IV PATENCY; Start 05/07/21 at 08:45; Stop 05/07/21 at 20:44; Status DC Info (PHARMACY MONITORING -- do not chart) 1 each PRN DAILY PRN MC SEE COMMENTS; Start 05/07/21 at 08:45; Status UNV Info (PHARMACY MONITORING -- do not chart) 1 each PRN DAILY PRN MC SEE COMMENTS; Start 05/07/21 at 08:45 Albumin Human 100 ml @ 100 mls/hr 1X ONCE IV ; Start 05/07/21 at 11:45; Stop 05/07/21 at 12:44; Status DC Multi-Ingred Cream/Lotion/Oil/ Oint (Artificial Tears Eye Ointment) 1 danielito PRN Q1HR PRN OU DRY EYE Last administered on 05/10/21at 20:51; Start 05/07/21 at 16:00 Potassium Chloride/Water 100 ml @ 100 mls/hr Q1H IV Last administered on 05/08/21at 11:54; Start 05/08/21 at 11:00; Stop 05/08/21 at 12:59; Status DC Potassium Chloride/Water 100 ml @ 100 mls/hr Q1H IV Last administered on 05/09/21at 11:43; Start 05/09/21 at 10:00; Stop 05/09/21 at 11:59; Status DC Potassium Chloride/Water 100 ml @ 100 mls/hr Q1H IV Last administered on 05/10/21at 10:56; Start 05/10/21 at 10:00; Stop 05/10/21 at 11:59; Status DC Hydralazine HCl (Apresoline) 25 mg QID PO Last administered on 05/14/21at 08:14; Start 05/10/21 at 10:00 Amlodipine Besylate (Norvasc) 5 mg DAILY PO Last administered on 05/14/21at 08:14; Start 05/10/21 at 10:00 Magnesium Sulfate 50 ml @ 25 mls/hr 1X ONCE IV Last administered on 05/10/21at 14:36; Start 05/10/21 at 13:30; Stop 05/10/21 at 15:29; Status DC Linezolid/Dextrose 300 ml @ 300 mls/hr Q12HR IV Last administered on 05/14/21at 08:15; Start 05/11/21 at 09:00 Meropenem 500 mg/ Sodium Chloride 50 ml @ 100 mls/hr Q8HRS IV Last administered on 05/14/21at 13:29; Start 05/11/21 at 14:00 Potassium Chloride/Water 100 ml @ 100 mls/hr 1X ONCE IV Last administered on 05/12/21at 08:55; Start 05/12/21 at 07:00; Stop 05/12/21 at 07:59; Status DC Sodium Chloride 1,000 ml @ 1,000 mls/hr Q1H PRN IV hypotension; Start 05/12/21 at 13:00; Stop 05/12/21 at 21:00; Status DC Albumin Human 200 ml @ 200 mls/hr 1X PRN PRN IV Hypotension; Start 05/12/21 at 13:00; Stop 05/12/21 at 21:00; Status DC Sodium Chloride 1,000 ml @ 400 mls/hr Q2H30M PRN IV PATENCY; Start 05/12/21 at 13:00; Stop 05/12/21 at 21:00; Status DC Info (PHARMACY MONITORING -- do not chart) 1 each PRN DAILY PRN MC SEE COMMENTS; Start 05/12/21 at 12:45; Status UNV Info (PHARMACY MONITORING -- do not chart) 1 each PRN DAILY PRN MC SEE COMMENTS; Start 05/12/21 at 12:45; Status UNV Potassium Chloride/Water 100 ml @ 100 mls/hr Q1H IV ; Start 05/13/21 at 12:15; Stop 05/13/21 at 12:18; Status DC Potassium Chloride/Water 100 ml @ 100 mls/hr Q1H IV ; Start 05/13/21 at 12:15; Stop 05/13/21 at 12:18; Status DC Potassium Chloride/Water 100 ml @ 100 mls/hr Q1H IV ; Start 05/13/21 at 12:15; Stop 05/13/21 at 12:17; Status DC Magnesium Sulfate 100 ml @ 50 mls/hr DAILY IV ; Start 05/14/21 at 09:00; Stop 05/13/21 at 12:17; Status DC Potassium Phosphate 20 mmol/ Sodium Chloride 256.6667 ml @ 62.5 mls/hr 1X ONCE IV ; Start 05/13/21 at 12:15; Stop 05/13/21 at 16:21; Status UNV Potassium Phosphate 30 mmol/ Sodium Chloride 260 ml @ 62.5 mls/hr 1X ONCE IV ; Start 05/13/21 at 12:15; Stop 05/13/21 at 16:24; Status UNV Potassium Chloride/Water 100 ml @ 50 mls/hr Q2H IV Last administered on 05/13/21at 15:10; Start 05/13/21 at 13:00; Stop 05/13/21 at 16:59; Status DC Ringer's Solution 1,000 ml @ 30 mls/hr Q24H IV ; Start 05/15/21 at 06:00; Stop 05/15/21 at 17:59 Prochlorperazine Edisylate (Compazine) 5 mg PACU PRN PRN IVP NAUSEA, MRX1; Start 05/15/21 at 06:00; Stop 05/16/21 at 05:59 Active Scripts Active Glyburide 2.5 Mg Tablet 1 Tab PO DAILY 14 Days Polyethylene Glycol 3350 17 Gm Powd.pack 17 Gm PO DAILY 14 Days Dok (Docusate Sodium) 100 Mg Capsule 100 Mg PO PRN DAILY PRN 30 Days Bisacodyl 5 Mg Tablet. 5 Mg PO PRN DAILY PRN 14 Days Acetaminophen 325 Mg Tablet 650 Mg PO PRN Q4HRS PRN 14 Days Aspirin Ec (Aspirin) 81 Mg Tablet.dr 81 Mg PO DAILYWBKFT 30 Days Hydralazine Hcl 25 Mg Tablet 25 Mg PO QID 30 Days Reported Fenofibrate 54 Mg Tablet 1 Tab PO DAILY Potassium Chloride (Potassium Chloride) 20 Meq Tablet.er 20 Meq PO DAILY Coreg (Carvedilol) 12.5 Mg Tablet 37.5 Mg PO BIDWMEALS Rosuvastatin Calcium 40 Mg Tablet 40 Mg PO QHS Gabapentin (Gabapentin) 100 Mg Capsule 200 Mg PO BID Montelukast Sodium Tablet (Montelukast Sodium) 10 Mg Tablet 10 Mg PO HS Protonix (Pantoprazole Sodium) 20 Mg Tablet.dr 2 Tab PO DAILY Amlodipine Besylate 5 Mg Tablet 5 Mg PO DAILY Furosemide 40 Mg Tablet 1 Tab PO DAILY Proair Hfa Inhaler (Albuterol Sulfate) 8.5 Gm Hfa.aer.ad 2 Puff IH PRN Q4-6HRS PRN 21 Days Advair 100-50 Diskus (Fluticasone/Salmeterol) 1 Each Disk.w.dev 1 Puff IH BID Vitals/I & O Vital Sign - Last 24 Hours 05/13/21 05/13/21 05/13/21 05/13/21 16:19 16:34 16:34 17:00 Pulse 86 86 86 Resp 24 B/P (MAP) 98/75 98/75 116/71 (86) Pulse Ox 100 100 O2 Delivery Ventilator Ventilator 05/13/21 05/13/21 05/13/21 05/13/21 18:00 18:01 19:00 20:00 Pulse 62 58 Resp 20 20 B/P (MAP) 111/79 (90) 98/54 (69) Pulse Ox 100 100 100 O2 Delivery Ventilator Ventilator Ventilator Mechanical Ventilator 05/13/21 05/13/21 05/13/21 05/13/21 20:00 20:57 21:00 21:39 Temp 98.2 98.2 Pulse 61 99 Resp 20 20 20 B/P (MAP) 91/65 (74) 96/55 (69) Pulse Ox 100 100 100 100 O2 Delivery Ventilator Ventilator Ventilator Ventilator 05/13/21 05/13/21 05/13/21 05/14/21 22:00 22:44 23:00 00:00 Pulse 68 59 Resp 20 20 20 B/P (MAP) 78/56 (63) 86/57 (67) Pulse Ox 100 100 100 O2 Delivery Ventilator Ventilator Ventilator Mechanical Ventilator 05/14/21 05/14/21 05/14/21 05/14/21 00:00 00:04 00:24 01:00 Temp 98.4 98.4 Pulse 71 80 61 Resp 20 20 B/P (MAP) 86/57 (67) 222/104 136/59 (84) Pulse Ox 100 100 100 O2 Delivery Ventilator Ventilator Ventilator 05/14/21 05/14/21 05/14/21 05/14/21 02:00 02:47 03:00 04:00 Temp 98.4 98.7 98.4 98.7 Pulse 63 54 63 Resp 20 20 20 B/P (MAP) 193/66 (108) 152/58 (89) 115/68 (84) Pulse Ox 100 100 100 100 O2 Delivery Ventilator Ventilator Ventilator Ventilator 05/14/21 05/14/21 05/14/21 05/14/21 04:00 05:00 05:24 06:00 Pulse 62 64 Resp 20 20 B/P (MAP) 184/70 (108) 166/82 (110) Pulse Ox 100 100 100 O2 Delivery Mechanical Ventilator Ventilator Ventilator Ventilator 05/14/21 05/14/21 05/14/21 05/14/21 06:18 07:01 07:42 08:03 Pulse 62 53 Resp 20 B/P (MAP) 166/85 166/82 (110) Pulse Ox 100 100 O2 Delivery Ventilator Ventilator Mechanical Ventilator 05/14/21 05/14/21 05/14/21 05/14/21 08:11 08:14 08:14 08:15 Temp 98.2 98.2 Pulse 55 55 55 55 Resp 20 B/P (MAP) 178/77 (110) 178/77 178/77 178/77 Pulse Ox 100 O2 Delivery Ventilator 05/14/21 05/14/21 05/14/21 05/14/21 08:58 09:00 09:28 09:44 Pulse 62 60 Resp 20 20 20 B/P (MAP) 176/89 (118) 195/100 Pulse Ox 100 100 100 O2 Delivery Ventilator Ventilator Ventilator 05/14/21 05/14/21 05/14/21 05/14/21 10:02 11:25 11:27 12:39 Pulse 72 69 Resp 20 20 B/P (MAP) 226/107 (146) 172/78 (109) Pulse Ox 100 100 100 O2 Delivery Ventilator Ventilator Ventilator Mechanical Ventilator 05/14/21 05/14/21 05/14/21 05/14/21 12:54 13:04 13:33 14:19 Temp 98.3 98.3 Pulse 57 56 55 Resp 20 20 20 B/P (MAP) 154/62 (92) 153/61 (91) 147/64 (91) Pulse Ox 100 100 100 100 O2 Delivery Ventilator Ventilator Ventilator Ventilator 05/14/21 05/14/21 15:40 15:41 Pulse 72 Resp 24 B/P (MAP) 196/96 (129) Pulse Ox 99 100 O2 Delivery Ventilator Ventilator Intake and Output 05/13/21 05/13/21 05/14/21 15:00 23:00 07:00 Intake Total 580 ml 2592 ml 520 ml Output Total 375 ml 535 ml 390 ml Balance 205 ml 2057 ml 130 ml Justifications for Admission General Conditions Altered mental status?: Yes Justification of admission: Patient has tachycardia (> 100 beats per minute) or hypotension (SBP < 90 mm Hg) leading to inadequate systemic perfusion as indicated by severe/persistent altered mental status. Other Justification ILDA VIDAL RODRIGUEZ MD May 14, 2021 16:10
[2021-05-14] MEDS: MONTELUKAST SODIUM 10 MG TABLET. PO SCH (21:50)
[2021-05-14] MEDS: ATORVASTATIN CALCIUM 40 MG TABLET. PO SCH (21:51)
[2021-05-14] MEDS: INSULIN GLARGINE SYRINGE. SQ SCH (21:55)
[2021-05-15] VITALS (24 sets, daily range): BP systolic 103–177; BP diastolic 54–88
[2021-05-15] MEDS: PROPOFOL 100 ML IV PRN ×4 (03:16→19:57)
[2021-05-15] MEDS: DEXMEDETOMIDINE 400 MCG in IV NORMAL SALINE 100ML 96 ML IV PRN ×4 (03:22→23:08)
[2021-05-15] MEDS: METOPROLOL IV PUSH 5 MG/5 ML VIAL. IVP SCH ×3 (04:59→17:43)
[2021-05-15] MEDS ORDERED: PROCHLORPERAZINE 10 MG/2 ML VIAL. IVP PRN (06:00)
[2021-05-15] MEDS: INSULIN LISPRO 300 UNITS/3 ML VIAL. SQ SCH ×4 (06:00→17:45)
[2021-05-15] MEDS ORDERED: IV RINGERS,LACTATED 1000ML 1,000 ML IV SCH (06:00)
[2021-05-15] MEDS: FUROSEMIDE 40 MG/4 ML VIAL. IVP SCH ×3 (06:02→22:12)
[2021-05-15] MEDS: MEROPENEM 500 MG in IV NORMAL SALINE 50ML 50 ML IV SCH ×3 (06:04→22:09)
--- NOTE | 2021-05-15 06:20 | PDOC ---
PULMONARY PROGRESS NOTES DATE: 05/15/21 TIME: 06:17 Subjective Remains on ventilatory support 40%/peep of 5 Sedated Plan for tracheostomy today Back on Cardene drip Vitals Vital Signs Date Time Temp Pulse Resp B/P (MAP) Pulse Ox O2 Delivery O2 Flow Rate FiO2 05/15/21 05:45 99 Ventilator 05/15/21 05:00 55 20 129/60 (83) 05/15/21 04:00 98.5 98.5 Comments Visual exam done due to COVID-19. Intubated and sedated No paradoxical breathing. Lungs: Other (Intubated) Labs Laboratory Tests Test 05/13/21 07:45 05/13/21 18:28 05/14/21 00:10 05/14/21 04:46 O2 Saturation 96 % (92-99) Arterial Blood pH 7.45 (7.35-7.45) Arterial Blood pCO2 at Patient Temp 37 mmHg (35-46) Arterial Blood pO2 at Patient Temp 85 mmHg (65-108) Arterial Blood HCO3 25 mmol/L (21-28) Arterial Blood Base Excess 1 mmol/L (-3-3) FiO2 40/vent Glucose (Fingerstick) 150 mg/dL (70-99) 162 mg/dL (70-99) Sodium Level 129 mmol/L (136-145) Potassium Level 3.6 mmol/L (3.5-5.1) Chloride Level 94 mmol/L (98-107) Carbon Dioxide Level 26 mmol/L (21-32) Anion Gap 9 (6-14) Blood Urea Nitrogen 30 mg/dL (8-26) Creatinine 2.6 mg/dL (0.7-1.3) Estimated GFR (Cockcroft-Gault) 29.3 BUN/Creatinine Ratio 12 (6-20) Glucose Level 187 mg/dL (70-99) Calcium Level 8.5 mg/dL (8.5-10.1) Total Bilirubin 0.5 mg/dL (0.2-1.0) Aspartate Amino Transf (AST/SGOT) 35 U/L (15-37) Alanine Aminotransferase (ALT/SGPT) 27 U/L (16-63) Alkaline Phosphatase 82 U/L (46-116) Total Protein 6.3 g/dL (6.4-8.2) Albumin 1.5 g/dL (3.4-5.0) Albumin/Globulin Ratio 0.3 (1.0-1.7) Test 05/14/21 06:21 05/14/21 07:40 05/14/21 08:30 05/14/21 21:57 Glucose (Fingerstick) 165 mg/dL (70-99) 148 mg/dL (70-99) O2 Saturation 96 % (92-99) Arterial Blood pH 7.44 (7.35-7.45) Arterial Blood pCO2 at Patient Temp 34 mmHg (35-46) Arterial Blood pO2 at Patient Temp 82 mmHg (65-108) Arterial Blood HCO3 23 mmol/L (21-28) Arterial Blood Base Excess -1 mmol/L (-3-3) FiO2 40 White Blood Count 13.4 x10^3/uL (4.0-11.0) Red Blood Count 3.16 x10^6/uL (4.30-5.70) Hemoglobin 8.4 g/dL (13.0-17.5) Hematocrit 25.7 % (39.0-53.0) Mean Corpuscular Volume 81 fL (79-100) Mean Corpuscular Hemoglobin 27 pg (25-35) Mean Corpuscular Hemoglobin Concent 33 g/dL (31-37) Red Cell Distribution Width 15.7 % (11.5-14.5) Platelet Count 269 x10^3/uL (140-400) Neutrophils (%) (Auto) 76 % (31-73) Lymphocytes (%) (Auto) 11 % (24-48) Monocytes (%) (Auto) 11 % (0-9) Eosinophils (%) (Auto) 1 % (0-3) Basophils (%) (Auto) 1 % (0-3) Neutrophils # (Auto) 10.2 x10^3/uL (1.8-7.7) Lymphocytes # (Auto) 1.4 x10^3/uL (1.0-4.8) Monocytes # (Auto) 1.4 x10^3/uL (0.0-1.1) Eosinophils # (Auto) 0.2 x10^3/uL (0.0-0.7) Basophils # (Auto) 0.1 x10^3/uL (0.0-0.2) Sodium Level 130 mmol/L (136-145) Potassium Level 3.4 mmol/L (3.5-5.1) Chloride Level 95 mmol/L (98-107) Carbon Dioxide Level 25 mmol/L (21-32) Anion Gap 10 (6-14) Blood Urea Nitrogen 30 mg/dL (8-26) Creatinine 2.7 mg/dL (0.7-1.3) Estimated GFR (Cockcroft-Gault) 28.1 Glucose Level 117 mg/dL (70-99) Calcium Level 8.1 mg/dL (8.5-10.1) Triglycerides Level 268 mg/dL (0-150) Test 05/15/21 00:01 05/15/21 06:12 Glucose (Fingerstick) 164 mg/dL (70-99) 142 mg/dL (70-99) Laboratory Tests Test 05/14/21 06:21 05/14/21 07:40 05/14/21 08:30 05/14/21 21:57 Glucose (Fingerstick) 165 mg/dL (70-99) 148 mg/dL (70-99) O2 Saturation 96 % (92-99) Arterial Blood pH 7.44 (7.35-7.45) Arterial Blood pCO2 at Patient Temp 34 mmHg (35-46) Arterial Blood pO2 at Patient Temp 82 mmHg (65-108) Arterial Blood HCO3 23 mmol/L (21-28) Arterial Blood Base Excess -1 mmol/L (-3-3) FiO2 40 White Blood Count 13.4 x10^3/uL (4.0-11.0) Red Blood Count 3.16 x10^6/uL (4.30-5.70) Hemoglobin 8.4 g/dL (13.0-17.5) Hematocrit 25.7 % (39.0-53.0) Mean Corpuscular Volume 81 fL (79-100) Mean Corpuscular Hemoglobin 27 pg (25-35) Mean Corpuscular Hemoglobin Concent 33 g/dL (31-37) Red Cell Distribution Width 15.7 % (11.5-14.5) Platelet Count 269 x10^3/uL (140-400) Neutrophils (%) (Auto) 76 % (31-73) Lymphocytes (%) (Auto) 11 % (24-48) Monocytes (%) (Auto) 11 % (0-9) Eosinophils (%) (Auto) 1 % (0-3) Basophils (%) (Auto) 1 % (0-3) Neutrophils # (Auto) 10.2 x10^3/uL (1.8-7.7) Lymphocytes # (Auto) 1.4 x10^3/uL (1.0-4.8) Monocytes # (Auto) 1.4 x10^3/uL (0.0-1.1) Eosinophils # (Auto) 0.2 x10^3/uL (0.0-0.7) Basophils # (Auto) 0.1 x10^3/uL (0.0-0.2) Sodium Level 130 mmol/L (136-145) Potassium Level 3.4 mmol/L (3.5-5.1) Chloride Level 95 mmol/L (98-107) Carbon Dioxide Level 25 mmol/L (21-32) Anion Gap 10 (6-14) Blood Urea Nitrogen 30 mg/dL (8-26) Creatinine 2.7 mg/dL (0.7-1.3) Estimated GFR (Cockcroft-Gault) 28.1 Glucose Level 117 mg/dL (70-99) Calcium Level 8.1 mg/dL (8.5-10.1) Triglycerides Level 268 mg/dL (0-150) Test 05/15/21 00:01 05/15/21 06:12 Glucose (Fingerstick) 164 mg/dL (70-99) 142 mg/dL (70-99) Medications Active Scripts Medications Dose Route/Sig Max Daily Dose Days Date Category Glyburide 2.5 Mg Tablet 1 Tab PO DAILY 04/19/21 Rx Polyethylene Glycol 3350 17 Gm Powd.pack 17 Gm PO DAILY 04/19/21 Rx Dok (Docusate Sodium) 100 Mg Capsule 100 Mg PO PRN DAILY PRN 04/19/21 Rx Bisacodyl 5 Mg Tablet.dr 5 Mg PO PRN DAILY PRN 04/19/21 Rx Acetaminophen 325 Mg Tablet 650 Mg PO PRN Q4HRS PRN 04/19/21 Rx Aspirin Ec (Aspirin) 81 Mg Tablet.dr 81 Mg PO DAILYWBKFT 04/19/21 Rx Hydralazine Hcl 25 Mg Tablet 25 Mg PO QID 04/19/21 Rx Fenofibrate 54 Mg Tablet 1 Tab PO DAILY 04/17/21 Reported Potassium Chloride (Potassium Chloride) 20 Meq Tablet.er 20 Meq PO DAILY 04/17/21 Reported Coreg (Carvedilol) 12.5 Mg Tablet 37.5 Mg PO BIDWMEALS 04/17/21 Reported Rosuvastatin Calcium 40 Mg Tablet 40 Mg PO QHS 04/17/21 Reported Gabapentin (Gabapentin) 100 Mg Capsule 200 Mg PO BID 04/17/21 Reported Montelukast Sodium Tablet (Montelukast Sodium) 10 Mg Tablet 10 Mg PO HS 04/17/21 Reported Protonix (Pantoprazole Sodium) 20 Mg Tablet.dr 2 Tab PO DAILY 04/17/21 Reported Amlodipine Besylate 5 Mg Tablet 5 Mg PO DAILY 04/17/21 Reported Furosemide 40 Mg Tablet 1 Tab PO DAILY 04/17/21 Reported Proair Hfa Inhaler (Albuterol Sulfate) 8.5 Gm Hfa.aer.ad 2 Puff IH PRN Q4-6HRS PRN 21 04/16/21 Reported Advair 100-50 Diskus (Fluticasone/Salmeterol) 1 Each Disk.w.dev 1 Puff IH BID 04/16/21 Reported Comments Impression . IMPRESSION: 1. Acute hypoxic respiratory failure, multifactorial/COVID-19 viral pneumonia/ARDS, ongoing, intubated 04/25/[address] chest with bilateral diffuse interstitial infiltrates without any significant pleural effusion 3. Leukocytosis, sepsis--ongoing ID following 4. Non-ST segment elevation NV 5. History of tobacco use, suspect COPD, unknown FEV1 6. Chronic kidney disease.== Neph neurology following, hemodialysis currently on hold 7. Metabolic acidosis multifactorial 8. Abnormal chest x-ray 9. Hypoglycemia, continue to monitor--- resolved 10. Hypotension, suspect volume deficit,/possible sepsis--- resolved 11. Fever--resolved 12. Anemia Plan . Updated 05/15/21 Continue current vent support 20/500/40%/5 Follow ABG/CXR--changes as needed Follow ID recs for ABX --Continue cefepime, Zyvox Follow surgery recommendations plan for tracheostomy 05/15/2021 Follow nephrology recs-- HD --hemodialysis, Monitor hemoglobin Follow Cardiology recs--preserved LV function, hypertension, back on cardene gtt Continue TF for nutritional support --on hold for procedure DVT/GI PPX:no AC 2/2 anemia D/W RN and RT Pt. is DNR Addendum;. Patient was reevaluated after tracheostomy. No initial complica tions. No bleeding. We will keep him sedated for next 24 hours and restart weaning process from tomorrow. cct 30 min Updated 05/14/21 Continue current vent support 20/500/40%/5 Follow ABG/CXR--changes as needed Follow ID recs for ABX --Continue cefepime, Zyvox Follow surgery recommendations plan for tracheostomy 05/15/2021 Follow nephrology recs-- HD --hemodialysis, Monitor hemoglobin Follow Cardiology recs--preserved LV function, hypertension Continue TF for nutritional support DVT/GI PPX:D/C subQ heparin 2/2 anemia D/W RN and RT Pt. is DNR Social work for DC planning--- LTACH question I have spoken to patient's daughter again this morning who is the DPOA. She will inform me in the next few hours about confirmation for tracheostomy. cct 30 min Updated 05/13/21 Continue current vent support 20/500/40%/5 Patient did not tolerate sedation vacation 05/11/2021, profoundly hypertensive Follow ABG/CXR--changes as needed Follow ID recs for ABX --Continue cefepime, now on Zyvox as well Follow surgery recommendations for tracheostomy, plan for tracheostomy 05/15/2021 Follow nephrology recs-- HD --hemodialysis, replace electrolytes per nephrology recommendations Monitor hemoglobin, no active signs of bleeding, transfuse if hemoglobin less than 7.0, panel and for packed red blood cells with hemodialysis, improved hemoglobin today. Follow Cardiology recs--preserved LV function, hypertension, continue TF for nutritional support DVT/GI PPX:D/C subQ heparin 2/2 anemia D/W RN and RT Pt. is DNR cct 30 min JONES FISHMAN MD May 15, 2021 06:20
[2021-05-15 06:39] LABS: CALCIUM 8.4 mg/dL (8.5-10.1); CREATININE 2.9 mg/dL (0.7-1.3); GFR 25.9; POTASSIUM 3.7 mmol/L (3.5-5.1)
[2021-05-15] MEDS ORDERED: SURGICEL FIBRILLAR 1X2 EACH. ONE (07:05)
[2021-05-15] MEDS ORDERED: BUPIVACAINE-EPI 0.5%-1:200000 MPF 30 ML VIAL. ONE (07:05)
[2021-05-15] MEDS ORDERED: ROCURONIUM 50 MG/5 ML VIAL. ONE (07:06)
--- NOTE | 2021-05-15 07:19 | PDOC ---
Infectious Disease Note Subjective: Subjective Patient intubated/sedated Vital Signs: Vital Signs Vital Signs Date Time Temp Pulse Resp B/P (MAP) Pulse Ox O2 Delivery O2 Flow Rate FiO2 05/15/21 07:04 57 20 147/69 (95) 98 Ventilator 05/15/21 04:00 98.5 98.5 Physical Exam: PHYSICAL EXAM GENERAL: Well-developed and well-nourished male, intubated, sedated. HEENT: Normocephalic, atraumatic, and anicteric. ETT and OGT present. NECK: right dialysis catheter present clean,central line changed ( 05/11) HEART: S1, S2. LUNGS: Decreased breath sounds. ABDOMEN: Soft, obese, bowel sounds present. GENITOURINARY: Nieves in place. EXTREMITIES: Edema present. DERMATOLOGIC: Warm, dry, no generalized rash. NEUROLOGIC: Intubated. PSYCHIATRIC: Unable to obtain. Medications: Inpatient Meds: Medications reviewed. Labs: Lab Laboratory Tests Test 05/14/21 07:40 05/14/21 08:30 05/14/21 21:57 05/15/21 00:01 O2 Saturation 96 % (92-99) Arterial Blood pH 7.44 (7.35-7.45) Arterial Blood pCO2 at Patient Temp 34 mmHg (35-46) Arterial Blood pO2 at Patient Temp 82 mmHg (65-108) Arterial Blood HCO3 23 mmol/L (21-28) Arterial Blood Base Excess -1 mmol/L (-3-3) FiO2 40 White Blood Count 13.4 x10^3/uL (4.0-11.0) Red Blood Count 3.16 x10^6/uL (4.30-5.70) Hemoglobin 8.4 g/dL (13.0-17.5) Hematocrit 25.7 % (39.0-53.0) Mean Corpuscular Volume 81 fL (79-100) Mean Corpuscular Hemoglobin 27 pg (25-35) Mean Corpuscular Hemoglobin Concent 33 g/dL (31-37) Red Cell Distribution Width 15.7 % (11.5-14.5) Platelet Count 269 x10^3/uL (140-400) Neutrophils (%) (Auto) 76 % (31-73) Lymphocytes (%) (Auto) 11 % (24-48) Monocytes (%) (Auto) 11 % (0-9) Eosinophils (%) (Auto) 1 % (0-3) Basophils (%) (Auto) 1 % (0-3) Neutrophils # (Auto) 10.2 x10^3/uL (1.8-7.7) Lymphocytes # (Auto) 1.4 x10^3/uL (1.0-4.8) Monocytes # (Auto) 1.4 x10^3/uL (0.0-1.1) Eosinophils # (Auto) 0.2 x10^3/uL (0.0-0.7) Basophils # (Auto) 0.1 x10^3/uL (0.0-0.2) Sodium Level 130 mmol/L (136-145) Potassium Level 3.4 mmol/L (3.5-5.1) Chloride Level 95 mmol/L (98-107) Carbon Dioxide Level 25 mmol/L (21-32) Anion Gap 10 (6-14) Blood Urea Nitrogen 30 mg/dL (8-26) Creatinine 2.7 mg/dL (0.7-1.3) Estimated GFR (Cockcroft-Gault) 28.1 Glucose Level 117 mg/dL (70-99) Calcium Level 8.1 mg/dL (8.5-10.1) Triglycerides Level 268 mg/dL (0-150) Glucose (Fingerstick) 148 mg/dL (70-99) 164 mg/dL (70-99) Test 05/15/21 06:10 05/15/21 06:12 Sodium Level 128 mmol/L (136-145) Potassium Level 3.7 mmol/L (3.5-5.1) Chloride Level 94 mmol/L (98-107) Carbon Dioxide Level 26 mmol/L (21-32) Anion Gap 8 (6-14) Blood Urea Nitrogen 33 mg/dL (8-26) Creatinine 2.9 mg/dL (0.7-1.3) Estimated GFR (Cockcroft-Gault) 25.9 Glucose Level 149 mg/dL (70-99) Calcium Level 8.4 mg/dL (8.5-10.1) Glucose (Fingerstick) 142 mg/dL (70-99) Objective: Assessment: 1. Febrile illness could be healthcare-associated infection,resolved 2. Leukocytosis, on steroids. 3. COVID-19 pneumonia. 4. Acute hypoxic respiratory failure status post intubation. 5. Congestive heart failure, acute on chronic. 6. Acute kidney injury on chronic kidney disease on hemodialysis. 7. Diabetes mellitus 2. 8. Atrial fibrillation. 9. Anemia. 10. Protein-calorie malnutrition. 11. Hypertention Plan: Plan of Care 1. Continue Meropenem and zyvox, 05/11 -had been on cefepime previously sputum culture neg so far 2. Follow-up labs and cultures 3. Central line changed on 05/11 4. C. difficile PCR negative 5. Continue supportive care. 6. Critically ill. Discussed with nursing staff ALAYNA RIVERO MD May 15, 2021 07:19
[2021-05-15] MEDS ORDERED: PHENYLEPHRINE in 0.9% NACL PF 1 MG/10 ML SYRINGE. IV ONE (07:51)
[2021-05-15] MEDS ORDERED: LIDOCAINE 2% PF 5 ML VIAL. ONE ×2 (07:53)
[2021-05-15] MEDS ORDERED: ONDANSETRON PF 4 MG/2 ML VIAL. ONE (07:53)
[2021-05-15] MEDS ORDERED: PROPOFOL 10 MG/ML (20ML) VIAL. IV ONE (07:53)
[2021-05-15] MEDS ORDERED: DEXAMETHASONE SOD PHOS 4 MG/ML VIAL ONE (07:53)
--- NOTE | 2021-05-15 08:05 | PDOC ---
[employer] PROGRESS NOTE Date of Service DOS: DATE: 05/15/21 TIME: 08:04 Chief Complaint Chief Complaint Respiratory failure requiring intubation COVID-19 Acute [place] A. fib SIRS Hypertension with hypertensive urgency Hyperlipidemia CKD Diabetes History of bilateral subclavian stenosis History of marijuana use Severe protein calorie malnutrition History of Present Illness History of Present Illness 05/15/21 Patient seen and examined at bedside Remains intubated and sedated planning for tracheostomy today Continue current respiratory support; continue antibiotics, continue sedation Follow recommendations of pulmonary, renal, and infectious disease Plan of care discussed with bedside nurse Will follow up with patient after surgery today 05/14/21 Patient seen and examined at bedside Remains intubated and sedated planning for tracheostomy tomorrow Continue current respiratory support; continue antibiotics, continue sedation Follow recommendations of pulmonary, renal, and infectious disease Plan of care discussed with bedside nurse 05/13/2021 did not tolerate sedation vacation 05/11/2021, profoundly hypertensive ABG/CXR--changes as needed Continue iv cefepime , add zyvox, sputum culture VENT [id number]%, 5 of PEEP Mild pulmonary edema with new small right pleural effusion and basilar opacities now on cardene gtt prn Patient seen and examined in the COVID-19 ICU remains mechanically ventilated ILDA on CKD - ATN 2/2 sepsis/ Hypotension,UOP good,on IV Lasix ; requiring dialysis, Sedated with propofol Dex and fentanyl Chart reviewed Discussed with RN He remains critically ill intubated/sedated cont cardene gtt not able to tolerate PS trial 05/06/21 Change central line and send cath tip for cultures. 05-09 C. difficile PCR ADELSO AVILA MD ORDERED: BCULT -- Procedure Result BLOOD CULTURE Final NO GROWTH AFTER 5 DAYS JONES FISHMAN MD, CHRISTOPHER S MD BLOOD CULTURE Preliminary NO GROWTH AFTER 4 DAYS 37 min cc time 05/12/2021 Continue iv cefepime , add zyvox, sputum culture VENT %, 5 of PEEP Mild pulmonary edema with new small right pleural effusion and basilar opacities now on cardene gtt prn Patient seen and examined in the [place] [address] ICU remains mechanically ventilated ILDA on CKD - ATN 2/2 sepsis/ Hypotension,UOP good,on IV Lasix ; requiring dialysis, Sedated with propofol Dex and fentanyl Chart reviewed Discussed with RN He remains critically ill intubated/sedated cont cardene gtt not able to tolerate PS trial 05/06/21 Change central line and send cath tip for cultures. 05-09 C. difficile PCR JONES FISHMAN MD, CHRISTOPHER S MD SISILLO, SABATO MD ORDERED: BCULT Procedure Result BLOOD CULTURE Preliminary NO GROWTH AFTER 2 DAYS BLOOD CULTURE Preliminary NO GROWTH AFTER 4 DAYS 33 min cc time 05/11/2021 Continue iv cefepime , add zyvox, sputum culture VENT [id number]%, 5 of PEEP Mild pulmonary edema with new small right pleural effusion and basilar opacities now on cardene gtt prn Patient seen and examined in the [place] [address] ICU remains mechanically ventilated ILDA on CKD - ATN 2/2 sepsis/ Hypotension,UOP good,on IV Lasix ; requiring dialysis, Sedated with propofol Dex and fentanyl Chart reviewed Discussed with RN He remains critically ill intubated/sedated cont cardene gtt not able to tolerate PS trial 05/06/21 Change central line and send cath tip for cultures. 05-09 C. difficile PCR JONES FISHMAN MD,ADELSO DASILVA MD, MD ORDERED: BCULT Procedure Result BLOOD CULTURE Preliminary NO GROWTH AFTER 2 DAYS BLOOD CULTURE Preliminary NO GROWTH AFTER 4 DAYS 36 min cc time 05/10/2021 VENT [id number]%, 5 of PEEP Mild pulmonary edema with new small right pleural effusion and basilar opacities now on cardene gtt prn Patient seen and examined in the COVID-19 ICU remains mechanically ventilated ILDA on CKD - ATN 2/2 sepsis/ Hypotension,UOP good,on IV Lasix ; requiring dialysis, Sedated with propofol Dex and fentanyl Chart reviewed Discussed with RN He remains critically ill intubated/sedated cont cardene gtt not able to tolerate PS trial 05/06/21 Change central line and send cath tip for cultures. 05-09 C. difficile PCR JONES FISHMAN MD,ADELSO DASILVA MD, MD ORDERED: BCULT Procedure Result ------- ----- BLOOD CULTURE Preliminary NO GROWTH AFTER 2 DAYS BLOOD CULTURE Preliminary NO GROWTH AFTER 4 DAYS 33 min cc time 05/09/2021 VENT [id number]%, 5 of PEEP Mild pulmonary edema with new small right pleural effusion and basilar opacities now on cardene gtt prn Patient seen and examined in the COVID-19 ICU remains mechanically ventilated ILDA on CKD - ATN 2/2 sepsis/ Hypotension,UOP good,on IV Lasix ; requiring dialysis, Sedated with propofol Dex and fentanyl Chart reviewed Discussed with RN He remains critically ill intubated/sedated cont cardene gtt not able to tolerate PS trial 05/06/21 Change central line and send cath tip for cultures. 05-09 C. difficile PCR JONES FISHMAN MD,BRIAN AVILA,ADELSO POTTER ORDERED: BCULT Procedure Result BLOOD CULTURE Preliminary NO GROWTH AFTER 2 DAYS BLOOD CULTURE Preliminary NO GROWTH AFTER 4 DAYS 37 min cc time 05/08/2021 Currently on 40%, 5 of PEEP now on cardene gtt Patient seen and examined in the [place] [facility] [address] ICU remains mechanically ventilated ILDA on CKD - ATN 2/2 sepsis/ Hypotension,UOP good,on IV Lasix ; requiring dialysis, AC/20/500/40 percent with 5 of PEEP Sedated with propofol Dex and fentanyl Chart reviewed Discussed with RN He remains critically ill intubated/sedated cont cardene gtt not able to tolerate PS trial 05/06/21 JONES FISHMAN MD,BRIAN AVILA,ADELSO POTTER ORDERED: BCULT --- --------- Procedure Result BLOOD CULTURE Preliminary NO GROWTH AFTER 2 DAYS BLOOD CULTURE Preliminary NO GROWTH AFTER 4 DAYS 33 min cc time 05/07/2021 Patient seen and examined in the [facility] [facility] [address] ICU He remains mechanically ventilated ILDA on CKD - ATN 2/2 sepsis/ Hypotension,UOP good,on IV Lasix ; requiring dialysis, AC/20/500/40 percent with 5 of PEEP Sedated with propofol Dex and fentanyl Chart reviewed Discussed with RN He remains critically ill intubated/sedated cont cardene gtt not able to tolerate PS trial 05/06/21 JONES FISHMAN MD,ADELSO DASILVA MD, MD ORDERED: BCULT Procedure Result BLOOD CULTURE Preliminary NO GROWTH AFTER 2 DAYS 36 min cc time 05/06/2021 Patient seen and examined in the [facility] [address] ICU He remains mechanically ventilated AC/20/500/40 percent with 5 of PEEP Sedated with propofol Dex and fentanyl Chart reviewed Discussed with RN He remains critically ill 05/05/2020 Patient seen and examined in the [facility] [address] ICU He remains on the vent AC/20/500/40 percent with 5 of PEEP Discussed with RN Chart reviewed Has SCDs in place Nieves to bedside drainage He remains critically ill 05/04/2021 Patient seen and examined in the [facility] [address] ICU Still intubated Sedated with propofol and fentanyl AC/20/500/70 percent with 5 of PEEP On dialysis currently Has SCDs in Nieves to bedside drainage Discussed with RN Chart reviewed 05/03/2021 Patient seen and examined in the [facility] [address] ICU He is still intubated AC/20/500/70 percent with 5 of PEEP Has SCDs in place Nieves to bedside drainage Sedated with fentanyl Versed and propofol Discussed are Chart reviewed Remains critically ill 05/02/2021 Patient seen and examined in the [facility] [address] ICU He is sedated with propofol fentanyl and Versed Ventilator settings as follow AC/20/500/40 percent with 5 of PEEP Has Nieves to bedside drainage Chart reviewed Discussed with RN He remains critically ill 05/01/2021 Patient seen and examined in the [facility] [address] ICU He is still intubated AC/20/500/40 percent with 5 of PEEP In A. fib Sedated with propofol fentanyl and Versed Has a heparin drip Missy with RN Chart reviewed He remains critically 04/30/2020 Patient seen and examined in the [facility] [address] ICU He remains on the vent AC/20/500/40 5% with 5 PEEP Currently on dialysis Has OG feeds running Has a Nieves to bedside drainage Sedated with propofol and fentanyl Reviewed chart Discussed with RN He remains critically ill Mr Cunha is a 75 yo male w/ PMHx CAD, HTN, Hyperlipidemia, subclavian steel syndrome, subclavian stenosis s/p left subclavian sent placement complicated by retroperitoneal hematoma s/p evacuation in 08/2015), asthma, BART, CKD, DM2 who presented from home with home health care noted that he was short of breath and valverde with O2 saturations less than 89% as low as 84% not improved with nasal cannulated oxygen placed on CPAP and brought to ED for further care. He was just discharged from the hospital a week ago on April 19, 2021 for abdominal pain and was going for further cardiac testing with outpatient stress testing scheduled on May 28, 2021. Had echocardiogram April 17, 2021 with normal-appearing EF with moderate concentric LVH no significant valvular abnormalities. WBC 20, Hb 10.7, platelets 268, NA 140, K3.8, BUN 21, CR 2.9, glucose 162, albumin 3, troponin I 1.372, NT proBNP 33,318. EKG appears sinus tachycardia rate of 105 bpm with multiple PACs small ST depressions in lead II and V5. TWI in V6. Chest radiograph with diffuse interstitial and alveolar opacities and ET tube 5.8 cm above the leilani. Due to worsening respiratory status ED physician elected to intubate patient. Seen postintubation. Blood pressure little low after propofol bolus, but improved. Significant white frothy sputum per ET tube. Admitted to ICU for further care 04/29/2021: Afebrile, remains on vent at FiO2 45%, PEEP 5. WBC 20.4. Hemodial ysis per nephrology. We will continue treatment with empiric antibiotics, remdesivir, and steroids. Continue heparin infusion and supportive care. Critical care time 30 minutes reviewing chart, review labs, review imaging, discussion with RN. 04/28/2021: Afebrile. FiO2 50%, PEEP 5. Nontunneled HD catheter placed yesterday due to worsening kidney function; eGFR 16 (CKD4). Chest x-ray showed unchanged interstitial opacities. Continue empiric antibiotics, steroids, and remdesivir. Continue heparin infusion, and continue to follow cardiology recommendations on new diagnosis of A. fib. Critical care time 30 minutes reviewing chart, review labs, review imaging, discussion with RN. 04/27/2021: Afebrile. On vent with FiO2 50%, PEEP 5. Troponin 2.8 yesterday; probable type II, demand ischemia. New onset A. fib. Continue heparin drip and as needed digoxin, per cardiology. Continue treatment with remdesivir, steroids, and prophylactic antibiotics. CBG 323 this morning; will add basal insulin. Critical care 30 minutes spent reviewing labs, reviewing imaging, reviewing charts, and discussion with RN. 04/26/2021: COVID-19 positive. Febrile overnight that was managed with cooling blankets. On vent with FiO2 50%, PEEP 5. Per cardiology, elevated troponins li cecilia secondary to demand ischemia; continue heparin drip per cardiology. Maintain fluid balance and avoid nephrotoxins. Continue treatment with remdesivir, steroids, and prophylactic antibiotics. 30 minutes critical care time spent reviewing charts, reviewing labs, reviewing imaging, and discussion with RN. 04/25/2021: On vent FiO2 50, PEEP 5. Febrile, T-max 103.3. Patient was initiated on cooling blankets. Procalcitonin 0.13. Continue coverage for hospital-acquired pneumonia with cefepime. MRSA PCR pending. Critical care time 30 minutes spent reviewing charts, reviewing labs, review of imaging, discussion with RN. Vitals/I&O Vitals/I&O: Vital Signs Date Time Temp Pulse Resp B/P (MAP) Pulse Ox O2 Delivery O2 Flow Rate FiO2 05/15/21 07:04 57 20 147/69 (95) 98 Ventilator 05/15/21 04:00 98.5 98.5 I & O 0 05/14/21 05/14/21 05/15/21 15:00 23:00 07:00 Intake Total 520 ml 1244 ml 1877 ml Output Total 725 ml 575 ml 850 ml Balance -205 ml 669 ml 1027 ml Physical Exam Physical Exam: GENERAL: Well-developed and well-nourished male, intubated, sedated. HEENT: Normocephalic, atraumatic, and anicteric. ETT and OGT present. NECK: right dialysis catheter present clean,central line changed ( 05/11) HEART: S1, S2. LUNGS: Decreased breath sounds. ABDOMEN: Soft, obese, bowel sounds present. GENITOURINARY: Nieves in place. EXTREMITIES: Edema present. DERMATOLOGIC: Warm, dry, no generalized rash. NEUROLOGIC: Intubated. PSYCHIATRIC: Unable to obtain. General: No acute distress, Other (Intubated and sedated) Heart: Regular rate, Normal S1, Normal S2 Lungs: Other (Intubated) Abdomen: Normal bowel sounds, Other (ND) Extremities: No clubbing, No cyanosis Skin: No rashes, No breakdown, No significant lesion Labs Labs: Laboratory Tests Test 05/14/21 08:30 05/14/21 21:57 05/15/21 00:01 05/15/21 06:10 White Blood Count 13.4 x10^3/uL (4.0-11.0) Red Blood Count 3.16 x10^6/uL (4.30-5.70) Hemoglobin 8.4 g/dL (13.0-17.5) Hematocrit 25.7 % (39.0-53.0) Mean Corpuscular Volume 81 fL (79-100) Mean Corpuscular Hemoglobin 27 pg (25-35) Mean Corpuscular Hemoglobin Concent 33 g/dL (31-37) Red Cell Distribution Width 15.7 % (11.5-14.5) Platelet Count 269 x10^3/uL (140-400) Neutrophils (%) (Auto) 76 % (31-73) Lymphocytes (%) (Auto) 11 % (24-48) Monocytes (%) (Auto) 11 % (0-9) Eosinophils (%) (Auto) 1 % (0-3) Basophils (%) (Auto) 1 % (0-3) Neutrophils # (Auto) 10.2 x10^3/uL (1.8-7.7) Lymphocytes # (Auto) 1.4 x10^3/uL (1.0-4.8) Monocytes # (Auto) 1.4 x10^3/uL (0.0-1.1) Eosinophils # (Auto) 0.2 x10^3/uL (0.0-0.7) Basophils # (Auto) 0.1 x10^3/uL (0.0-0.2) Sodium Level 130 mmol/L (136-145) 128 mmol/L (136-145) Potassium Level 3.4 mmol/L (3.5-5.1) 3.7 mmol/L (3.5-5.1) Chloride Level 95 mmol/L (98-107) 94 mmol/L (98-107) Carbon Dioxide Level 25 mmol/L (21-32) 26 mmol/L (21-32) Anion Gap 10 (6-14) 8 (6-14) Blood Urea Nitrogen 30 mg/dL (8-26) 33 mg/dL (8-26) Creatinine 2.7 mg/dL (0.7-1.3) 2.9 mg/dL (0.7-1.3) Estimated GFR (Cockcroft-Gault) 28.1 25.9 Glucose Level 117 mg/dL (70-99) 149 mg/dL (70-99) Calcium Level 8.1 mg/dL (8.5-10.1) 8.4 mg/dL (8.5-10.1) Triglycerides Level 268 mg/dL (0-150) Glucose (Fingerstick) 148 mg/dL (70-99) 164 mg/dL (70-99) Test 05/15/21 06:12 Glucose (Fingerstick) 142 mg/dL (70-99) Assessment and Plan Assessmemt and Plan Problems Medical Problems: (1) Elevated troponin Status: Acute (2) Person under investigation for COVID-19 Status: Acute (3) Pulmonary edema Status: Acute Comment Review of Relevant I have reviewed the following items juanita (where applicable) has been applied. Medications: Current Medications Medications (Trade) Dose Ordered Sig/Jodie Route PRN Reason Start Time Stop Time Status Last Admin Dose Admin Ringer's Solution 1,000 ml @ 30 mls/hr Q24H IV 05/15/21 06:00 05/15/21 17:59 05/15/21 07:04 Justifications for Admission General Conditions Altered mental status?: Yes Justification of admission: Patient has tachycardia (> 100 beats per minute) or hypotension (SBP < 90 mm Hg) leading to inadequate systemic perfusion as indicated by severe/persistent altered mental status. Other Justification BRAIN ERNST MD May 15, 2021 08:05
[2021-05-15 08:32] LABS: BASE EXCESS ABG -1 mmol/L (-3-3); HCO3 ABG 23 mmol/L (21-28); PCO2 ABG 34 mmHg (35-46); PO2 ABG 65 mmHg (65-108); SAT O2 ABG 92 % (92-99)
[2021-05-15 08:33] LABS: FIO2 ABG 40
--- NOTE | 2021-05-15 08:36 | PDOC ---
SURGICAL PROGRESS NOTE DATE: 05/15/21 TIME: 08:34 Subjective Pre-Op Note 75 yo M with respiratory failure. TO OR for tracheostomy. R/R/B/A d/w pt's DPOA and brother on phone. Risks, including, but not limited to: bleeding, infection, damage to surrounding structures, risk of anesthesia. They appear to understand, their questions are answered and they elect to proceed. Vital Signs Vital Signs Date Time Temp Pulse Resp B/P (MAP) Pulse Ox O2 Delivery O2 Flow Rate FiO2 05/15/21 08:20 97.8 64 20 109/54 (72) 99 Ventilator 97.8 I&O Intake and Output 05/15/21 07:00 Intake Total 3641 ml Output Total 2150 ml Balance 1491 ml IV Total 2081 ml Tube Feeding 1560 ml Output Urine Total 2150 ml Labs Laboratory Tests Test 05/13/21 18:28 05/14/21 00:10 05/14/21 04:46 05/14/21 06:21 Glucose (Fingerstick) 150 mg/dL (70-99) 162 mg/dL (70-99) 165 mg/dL (70-99) Sodium Level 129 mmol/L (136-145) Potassium Level 3.6 mmol/L (3.5-5.1) Chloride Level 94 mmol/L (98-107) Carbon Dioxide Level 26 mmol/L (21-32) Anion Gap 9 (6-14) Blood Urea Nitrogen 30 mg/dL (8-26) Creatinine 2.6 mg/dL (0.7-1.3) Estimated GFR (Cockcroft-Gault) 29.3 BUN/Creatinine Ratio 12 (6-20) Glucose Level 187 mg/dL (70-99) Calcium Level 8.5 mg/dL (8.5-10.1) Total Bilirubin 0.5 mg/dL (0.2-1.0) Aspartate Amino Transf (AST/SGOT) 35 U/L (15-37) Alanine Aminotransferase (ALT/SGPT) 27 U/L (16-63) Alkaline Phosphatase 82 U/L (46-116) Total Protein 6.3 g/dL (6.4-8.2) Albumin 1.5 g/dL (3.4-5.0) Albumin/Globulin Ratio 0.3 (1.0-1.7) Test 05/14/21 07:40 05/14/21 08:30 05/14/21 21:57 05/15/21 00:01 O2 Saturation 96 % (92-99) Arterial Blood pH 7.44 (7.35-7.45) Arterial Blood pCO2 at Patient Temp 34 mmHg (35-46) Arterial Blood pO2 at Patient Temp 82 mmHg (65-108) Arterial Blood HCO3 23 mmol/L (21-28) Arterial Blood Base Excess -1 mmol/L (-3-3) FiO2 40 White Blood Count 13.4 x10^3/uL (4.0-11.0) Red Blood Count 3.16 x10^6/uL (4.30-5.70) Hemoglobin 8.4 g/dL (13.0-17.5) Hematocrit 25.7 % (39.0-53.0) Mean Corpuscular Volume 81 fL (79-100) Mean Corpuscular Hemoglobin 27 pg (25-35) Mean Corpuscular Hemoglobin Concent 33 g/dL (31-37) Red Cell Distribution Width 15.7 % (11.5-14.5) Platelet Count 269 x10^3/uL (140-400) Neutrophils (%) (Auto) 76 % (31-73) Lymphocytes (%) (Auto) 11 % (24-48) Monocytes (%) (Auto) 11 % (0-9) Eosinophils (%) (Auto) 1 % (0-3) Basophils (%) (Auto) 1 % (0-3) Neutrophils # (Auto) 10.2 x10^3/uL (1.8-7.7) Lymphocytes # (Auto) 1.4 x10^3/uL (1.0-4.8) Monocytes # (Auto) 1.4 x10^3/uL (0.0-1.1) Eosinophils # (Auto) 0.2 x10^3/uL (0.0-0.7) Basophils # (Auto) 0.1 x10^3/uL (0.0-0.2) Sodium Level 130 mmol/L (136-145) Potassium Level 3.4 mmol/L (3.5-5.1) Chloride Level 95 mmol/L (98-107) Carbon Dioxide Level 25 mmol/L (21-32) Anion Gap 10 (6-14) Blood Urea Nitrogen 30 mg/dL (8-26) Creatinine 2.7 mg/dL (0.7-1.3) Estimated GFR (Cockcroft-Gault) 28.1 Glucose Level 117 mg/dL (70-99) Calcium Level 8.1 mg/dL (8.5-10.1) Triglycerides Level 268 mg/dL (0-150) Glucose (Fingerstick) 148 mg/dL (70-99) 164 mg/dL (70-99) Test 05/15/21 06:10 05/15/21 06:12 05/15/21 08:00 Sodium Level 128 mmol/L (136-145) Potassium Level 3.7 mmol/L (3.5-5.1) Chloride Level 94 mmol/L (98-107) Carbon Dioxide Level 26 mmol/L (21-32) Anion Gap 8 (6-14) Blood Urea Nitrogen 33 mg/dL (8-26) Creatinine 2.9 mg/dL (0.7-1.3) Estimated GFR (Cockcroft-Gault) 25.9 Glucose Level 149 mg/dL (70-99) Calcium Level 8.4 mg/dL (8.5-10.1) Glucose (Fingerstick) 142 mg/dL (70-99) O2 Saturation 92 % (92-99) Arterial Blood pH 7.45 (7.35-7.45) Arterial Blood pCO2 at Patient Temp 34 mmHg (35-46) Arterial Blood pO2 at Patient Temp 65 mmHg (65-108) Arterial Blood HCO3 23 mmol/L (21-28) Arterial Blood Base Excess -1 mmol/L (-3-3) FiO2 40 Laboratory Tests Test 05/14/21 21:57 05/15/21 00:01 05/15/21 06:10 05/15/21 06:12 Glucose (Fingerstick) 148 mg/dL (70-99) 164 mg/dL (70-99) 142 mg/dL (70-99) Sodium Level 128 mmol/L (136-145) Potassium Level 3.7 mmol/L (3.5-5.1) Chloride Level 94 mmol/L (98-107) Carbon Dioxide Level 26 mmol/L (21-32) Anion Gap 8 (6-14) Blood Urea Nitrogen 33 mg/dL (8-26) Creatinine 2.9 mg/dL (0.7-1.3) Estimated GFR (Cockcroft-Gault) 25.9 Glucose Level 149 mg/dL (70-99) Calcium Level 8.4 mg/dL (8.5-10.1) Test 05/15/21 08:00 O2 Saturation 92 % (92-99) Arterial Blood pH 7.45 (7.35-7.45) Arterial Blood pCO2 at Patient Temp 34 mmHg (35-46) Arterial Blood pO2 at Patient Temp 65 mmHg (65-108) Arterial Blood HCO3 23 mmol/L (21-28) Arterial Blood Base Excess -1 mmol/L (-3-3) FiO2 40 Problem List Problems Medical Problems: (1) Elevated troponin Status: Acute (2) Person under investigation for COVID-19 Status: Acute (3) Pulmonary edema Status: Acute Justicifation of Admission Dx: Justifications for Admission: Justification of Admission Dx: Yes Aspiration Pneumonia: Hemodynamic Instability TIO CARSON MD May 15, 2021 08:36
[2021-05-15] MEDS ORDERED: ePHEDrine PF IN SALINE 50 MG/10 ML SYRINGE. IV ONE (09:15)
--- NOTE | 2021-05-15 09:58 | PDOC4 ---
OPERATIVE NOTE Date: Date: May 15, 2021 Pre-Op Diagnosis: Respiratory failure Post-Op Diagnosis: same Procedure Performed: Tracheostomy (specifically 8 shiley cuffed, XLT) Surgeon: Chay Carson Anesthesia Type: GETA Blood Loss: 50 Specimans Obtained: none Findings: morbid obesity, prominent thyroid Complications: none Operative Note: After obtaining informed consent, patient was taken to OR, induced under GETA and prepped in the usual fashion. Vertical incision made with cautery. Subcutaneous tissues divided with cautery. Obesity made procedure difficult. Prominent thyroid isthmus divided with cautery. 1st tracheal ring had 3 0 PDS placed and secured to left neck with steristrips. 2nd tracheal ring opened sharply. ET tube pulled back and tracheostomy placed under direct vision. Balloon inflated and end tidal C02 detected. Patient successfully oxygenated and ventilated. Surgicel placed around tracheostomy. Tracheostomy secured with 3 0 prolene. Patient tolerated procedure well and sent to ICU in stable condition. All counts correct. Wound class is 4. TIO CARSON MD May 15, 2021 09:58
--- NOTE | 2021-05-15 10:17 | PDOC ---
Renal-Progress Notes Subjective Notes Notes ON THE VENT History of Present Illness Hx of present illness OUT OF ISOLATION Vitals Vitals Vital Signs Date Time Temp Pulse Resp B/P (MAP) Pulse Ox O2 Delivery O2 Flow Rate FiO2 05/15/21 08:20 97.8 64 20 109/54 (72) 99 Ventilator 97.8 Weight Weight [ ] I.O. Intake and Output Intake and Output 05/15/21 07:00 Intake Total 3641 ml Output Total 2150 ml Balance 1491 ml IV Total 2081 ml Tube Feeding 1560 ml Output Urine Total 2150 ml Labs Labs Laboratory Tests Test 05/14/21 21:57 05/15/21 00:01 05/15/21 06:10 05/15/21 06:12 Glucose (Fingerstick) 148 mg/dL (70-99) 164 mg/dL (70-99) 142 mg/dL (70-99) Sodium Level 128 mmol/L (136-145) Potassium Level 3.7 mmol/L (3.5-5.1) Chloride Level 94 mmol/L (98-107) Carbon Dioxide Level 26 mmol/L (21-32) Anion Gap 8 (6-14) Blood Urea Nitrogen 33 mg/dL (8-26) Creatinine 2.9 mg/dL (0.7-1.3) Estimated GFR (Cockcroft-Gault) 25.9 Glucose Level 149 mg/dL (70-99) Calcium Level 8.4 mg/dL (8.5-10.1) Test 05/15/21 08:00 O2 Saturation 92 % (92-99) Arterial Blood pH 7.45 (7.35-7.45) Arterial Blood pCO2 at Patient Temp 34 mmHg (35-46) Arterial Blood pO2 at Patient Temp 65 mmHg (65-108) Arterial Blood HCO3 23 mmol/L (21-28) Arterial Blood Base Excess -1 mmol/L (-3-3) FiO2 40 Micro Micro Microbiology 05/11/21 Gram Stain Evaluation - Final, Complete 05/11/21 Respiratory Culture - Final, Complete 05/04/21 Gram Stain - Final, Complete 05/04/21 Aerobic Culture - Final, Complete 05/04/21 Blood Culture - Final, Complete NO GROWTH AFTER 5 DAYS Review of Systems Constitutional: yes: unresponsive, other (UNABLE TO OBTAIN) Physical Exam General Appearance: other (ON THE VENT) Respiratory: decreased breath sounds Heart: S1S2 Abdomen: bowel sounds present Genitourinary: bladder flat Extremities: atrophy Neurology: other (sedated) Musculoskeletal: Other Assessment Assessment IMP HYPONATREMIA [id number] IMPROVING BUT NO CLEARANCE-CR OF 2.9 CKD - SUSPECT STAGE 3 ACUTE HYPOXIC RESP FAILURE-FIO2 INCREASED COVID 19 PNEUMONIA MET ACIDOSIS-BETTER LEUCOCYTOSIS HYPOKALEMIA-CORRECTED ANEMIA S/P TRACH PLAN REMAINS CRITICALLY ILL VENT SUPPORT-FIO2 UP TO 40% NUTRITION-NEPRO TF HOLD BETTY DUE TO HYPERCOAGULABLE STATE PRESSORS NEEDED HD LAST ON SAT TENTATIVE HD TOMORROW CONT TO MONITOR FOR RENAL RECOVERY CONT IV LASIX WILL FOLLOW JEANINE NEWTON MD May 15, 2021 10:17
[2021-05-15] MEDS: PANTOPRAZOLE IV PUSH 40 MG VIAL. IVP SCH (12:30)
[2021-05-15] MEDS: ASPIRIN CHEWABLE 81 MG TABLET. PO SCH (12:32)
[2021-05-15] MEDS: AMIODARONE HCL 200 MG TABLET. PO SCH (12:33)
[2021-05-15] MEDS: hydrALAZINE 25 MG TABLET PO SCH ×4 (12:34→22:07)
--- NOTE | 2021-05-15 15:26 | NUR ---
SS following up with discharge planning. SS reviewed pt chart and discussed with pt RN. Pt is currently on the vent at 40%. COVID19 positive. Pt had trach placed today. Pt on IV Meropenem and IV Zyvox. Pt on Propofol, Precedex, Fentanyl, and Cardene. LTACH referral recommended. SS contacted pt's granddaughters, Graciela, , and Annika, , and discussed discharge planning and LTACH referral. Pt's granddaughter reported that she is a respiratory therapist at [employer]. Pt's granddaughters agreeable to referral to [facility], ; fax [phone], and [facility], ; fax [phone]. Pt's granddaughters reported that they will discuss together and notify SS of which facility they decide. Pt [facility] insurance has 25/04 rule for LTACH. SS phoned and faxed referrals to [facility] and [facility]. SS will continue to follow for discharge planning.
[2021-05-15] MEDS: ATORVASTATIN CALCIUM 40 MG TABLET. PO SCH (22:06)
[2021-05-15] MEDS: MONTELUKAST SODIUM 10 MG TABLET. PO SCH (22:06)
[2021-05-15] MEDS: INSULIN GLARGINE SYRINGE. SQ SCH (22:08)
[2021-05-16] VITALS (24 sets, daily range): BP systolic 84–172; BP diastolic 44–78
[2021-05-16] MEDS: METOPROLOL IV PUSH 5 MG/5 ML VIAL. IVP SCH ×4 (00:21→18:11)
[2021-05-16] MEDS: INSULIN LISPRO 300 UNITS/3 ML VIAL. SQ SCH ×4 (00:28→18:00)
[2021-05-16] MEDS: PROPOFOL 100 ML IV PRN ×4 (00:33→13:51)
[2021-05-16] MEDS: DEXMEDETOMIDINE 400 MCG in IV NORMAL SALINE 100ML 96 ML IV PRN ×3 (04:35→20:41)
[2021-05-16] MEDS: MEROPENEM 500 MG in IV NORMAL SALINE 50ML 50 ML IV SCH ×2 (06:45→20:38)
[2021-05-16] MEDS: FUROSEMIDE 40 MG/4 ML VIAL. IVP SCH ×3 (06:52→21:21)
--- NOTE | 2021-05-16 07:48 | PDOC ---
Infectious Disease Note Subjective: Subjective Patient intubated/sedated No acute issues per discussion with RN Vital Signs: Vital Signs Vital Signs Date Time Temp Pulse Resp B/P (MAP) Pulse Ox O2 Delivery O2 Flow Rate FiO2 05/16/21 06:52 60 168/75 05/16/21 05:45 99 Ventilator 05/16/21 04:00 98.0 20 98.0 Physical Exam: PHYSICAL EXAM GENERAL: Well-developed and well-nourished male, intubated, sedated. HEENT: Normocephalic, atraumatic, and anicteric. ETT and OGT present. NECK: right dialysis catheter present clean,central line changed ( 05/11) HEART: S1, S2. LUNGS: Decreased breath sounds. ABDOMEN: Soft, obese, bowel sounds present. GENITOURINARY: Nieves in place. EXTREMITIES: Edema present. DERMATOLOGIC: Warm, dry, no generalized rash. NEUROLOGIC: Intubated. PSYCHIATRIC: Unable to obtain. Medications: Inpatient Meds: Medications reviewed. Labs: Lab Laboratory Tests Test 05/15/21 08:00 05/15/21 12:36 05/15/21 17:44 05/16/21 00:26 O2 Saturation 92 % (92-99) Arterial Blood pH 7.45 (7.35-7.45) Arterial Blood pCO2 at Patient Temp 34 mmHg (35-46) Arterial Blood pO2 at Patient Temp 65 mmHg (65-108) Arterial Blood HCO3 23 mmol/L (21-28) Arterial Blood Base Excess -1 mmol/L (-3-3) FiO2 40 Glucose (Fingerstick) 176 mg/dL (70-99) 191 mg/dL (70-99) 223 mg/dL (70-99) Test 05/16/21 07:29 Glucose (Fingerstick) 168 mg/dL (70-99) Objective: Assessment: 1. Febrile illness could be healthcare-associated infection,resolved 2. Leukocytosis, on steroids. 3. COVID-19 pneumonia. 4. Acute hypoxic respiratory failure status post intubation. 5. Congestive heart failure, acute on chronic. 6. Acute kidney injury on chronic kidney disease on hemodialysis. 7. Diabetes mellitus 2. 8. Atrial fibrillation. 9. Anemia. 10. Protein-calorie malnutrition. 11. Hypertention 12.Hyponatremia Plan: Plan of Care 1. Continue Meropenem renal dosing as needed -Continue Zyvox -had been on cefepime previously sputum culture neg so far 2. Follow-up labs and cultures 3. Central line changed on 05/11 4. C. difficile PCR negative 5. Continue supportive care. 6. Critically ill. Discussed with nursing staff ALAYNA RIVERO MD May 16, 2021 07:48
--- NOTE | 2021-05-16 07:56 | PDOC ---
[employer] PROGRESS NOTE Date of Service DOS: DATE: 05/16/21 TIME: 07:54 Chief Complaint Chief Complaint Respiratory failure requiring intubation COVID-19 Acute SD A. fib SIRS Hypertension with hypertensive urgency Hyperlipidemia CKD Diabetes History of bilateral subclavian stenosis History of marijuana use Severe protein calorie malnutrition History of Present Illness History of Present Illness 05/16/21 Patient seen and examined at bedside. Underwent tracheostomy yesterday today tolerated well. When seen this morning patient is still notably sedated respiratory status is stable. Continue antibiotics and supportive measures. Plan of care discussed with bedside nurse. Attempt to wean sedation. 05/15/21 Patient seen and examined at bedside Remains intubated and sedated planning for tracheostomy today Continue current respiratory support; continue antibiotics, continue sedation Follow recommendations of pulmonary, renal, and infectious disease Plan of care discussed with bedside nurse Will follow up with patient after surgery today 05/14/21 Patient seen and examined at bedside Remains intubated and sedated planning for tracheostomy tomorrow Continue current respiratory support; continue antibiotics, continue sedation Follow recommendations of pulmonary, renal, and infectious disease Plan of care discussed with bedside nurse 05/13/2021 did not tolerate sedation vacation 05/11/2021, profoundly hypertensive ABG/CXR--changes as needed Continue iv cefepime , add zyvox, sputum culture VENT [id number]%, 5 of PEEP Mild pulmonary edema with new small right pleural effusion and basilar opacities now on cardene gtt prn Patient seen and examined in the [place] [id number] ICU remains mechanically ventilated ILDA on CKD - ATN 2/2 sepsis/ Hypotension,UOP good,on IV Lasix ; requiring dialysis, Sedated with propofol Dex and fentanyl Chart reviewed Discussed with RN He remains critically ill intubated/sedated cont cardene gtt not able to tolerate PS trial 05/06/21 Change central line and send cath tip for cultures. 05-09 C. difficile PCR ADELSO AVILA MD ORDERED: BCULT Procedure Result BLOOD CULTURE Final NO GROWTH AFTER 5 DAYS JONES FISHMAN MD,BRIAN Roberson MD BLOOD CULTURE Preliminary NO GROWTH AFTER 4 DAYS 37 min cc time 05/12/2021 Continue iv cefepime , add zyvox, sputum culture VENT [id number]%, 5 of PEEP Mild pulmonary edema with new small right pleural effusion and basilar opacities now on cardene gtt prn Patient seen and examined in the COVID[facility]19 ICU remains mechanically ventilated ILDA on CKD - ATN 2/2 sepsis/ Hypotension,UOP good,on IV Lasix ; requiring dialysis, Sedated with propofol Dex and fentanyl Chart reviewed Discussed with RN He remains critically ill intubated/sedated cont cardene gtt not able to tolerate PS trial 05/06/21 Change central line and send cath tip for cultures. 05-09 C. difficile PCR JONES FISHMAN MD, CHRISTOPHER S MD SISILLO, SABATO MD ORDERED: BCULT Procedure Result BLOOD CULTURE Preliminary NO GROWTH AFTER 2 DAYS --------- --- BLOOD CULTURE Preliminary NO GROWTH AFTER 4 DAYS 33 min cc time 05/11/2021 Continue iv cefepime , add zyvox, sputum culture VENT [id number]%, 5 of PEEP Mild pulmonary edema with new small right pleural effusion and basilar opacities now on cardene gtt prn Patient seen and examined in the [place] [id number] ICU remains mechanically ventilated ILDA on CKD - ATN 2/2 sepsis/ Hypotension,UOP good,on IV Lasix ; requiring dialysis, Sedated with propofol Dex and fentanyl Chart reviewed Discussed with RN He remains critically ill intubated/sedated cont cardene gtt not able to tolerate PS trial 05/06/21 Change central line and send cath tip for cultures. 05-09 C. difficile PCR JONES FISHMAN MD,ADELSO DASILVA MD, MD ORDERED: BCULT Procedure Result BLOOD CULTURE Preliminary NO GROWTH AFTER 2 DAYS BLOOD CULTURE Preliminary NO GROWTH AFTER 4 DAYS 36 min cc time 05/10/2021 VENT %, 5 of PEEP Mild pulmonary edema with new small right pleural effusion and basilar opacities now on cardene gtt prn Patient seen and examined in the [place] [address] ICU remains mechanically ventilated ILDA on CKD - ATN 2/2 sepsis/ Hypotension,UOP good,on IV Lasix ; requiring dialysis, Sedated with propofol Dex and fentanyl Chart reviewed Discussed with RN He remains critically ill intubated/sedated cont cardene gtt not able to tolerate PS trial 05/06/21 Change central line and send cath tip for cultures. 05-09 C. difficile PCR JONES FISHMAN MD,ADELSO DASILVA MD, MD ORDERED: BCULT Procedure Result BLOOD CULTURE Preliminary NO GROWTH AFTER 2 DAYS BLOOD CULTURE Preliminary NO GROWTH AFTER 4 DAYS 33 min cc time 05/09/2021 VENT %, 5 of PEEP Mild pulmonary edema with new small right pleural effusion and basilar opacities now on cardene gtt prn Patient seen and examined in the COVID-19 ICU remains mechanically ventilated ILDA on CKD - ATN 2/2 sepsis/ Hypotension,UOP good,on IV Lasix ; requiring dialysis, Sedated with propofol Dex and fentanyl Chart reviewed Discussed with RN He remains critically ill intubated/sedated cont cardene gtt not able to tolerate PS trial 05/06/21 Change central line and send cath tip for cultures. 05-09 C. difficile PCR JONES FISHMAN MD,BRIAN AVILA,ADELSO POTTER ORDERED: BCULT Procedure Result BLOOD CULTURE Preliminary NO GROWTH AFTER 2 DAYS BLOOD CULTURE Preliminary NO GROWTH AFTER 4 DAYS 37 min cc time 05/08/2021 Currently on 40%, 5 of PEEP now on cardene gtt Patient seen and examined in the [place] [address] ICU remains mechanically ventilated ILDA on CKD - ATN 2/2 sepsis/ Hypotension,UOP good,on IV Lasix ; requiring dialysis, AC/20/500/40 percent with 5 of PEEP Sedated with propofol Dex and fentanyl Chart reviewed Discussed with RN He remains critically ill intubated/sedated cont cardene gtt not able to tolerate PS trial 05/06/21 JONES FISHMAN MD,ADELSO DASILVA MD, MD ORDERED: BCULT Procedure Result BLOOD CULTURE Preliminary NO GROWTH AFTER 2 DAYS BLOOD CULTURE Preliminary NO GROWTH AFTER 4 DAYS 33 min cc time 05/07/2021 Patient seen and examined in the [place] [address] ICU He remains mechanically ventilated ILDA on CKD - ATN 2/2 sepsis/ Hypotension,UOP good,on IV Lasix ; requiring dialysis, AC/20/500/40 percent with 5 of PEEP Sedated with propofol Dex and fentanyl Chart reviewed Discussed with RN He remains critically ill intubated/sedated cont cardene gtt not able to tolerate PS trial 05/06/21 JONES FISHMAN MD,ADELSO DASILVA MD, MD ORDERED: BCULT Procedure Result BLOOD CULTURE Preliminary NO GROWTH AFTER 2 DAYS 36 min cc time 05/06/2021 Patient seen and examined in the [place] [address] ICU He remains mechanically ventilated AC/20/500/40 percent with 5 of PEEP Sedated with propofol Dex and fentanyl Chart reviewed Discussed with RN He remains critically ill 05/05/2020 Patient seen and examined in the [place] [address] ICU He remains on the vent AC/20/500/40 percent with 5 of PEEP Discussed with RN Chart reviewed Has SCDs in place Nieves to bedside drainage He remains critically ill 05/04/2021 Patient seen and examined in the [place] [address] ICU Still intubated Sedated with propofol and fentanyl AC/20/500/70 percent with 5 of PEEP On dialysis currently Has SCDs in Nieves to bedside drainage Discussed with RN Chart reviewed 05/03/2021 Patient seen and examined in the [place] [address] ICU He is still intubated AC/20/500/70 percent with 5 of PEEP Has SCDs in place Nieves to bedside drainage Sedated with fentanyl Versed and propofol Discussed are Chart reviewed Remains critically ill 05/02/2021 Patient seen and examined in the [place] [address] ICU He is sedated with propofol fentanyl and Versed Ventilator settings as follow AC/20/500/40 percent with 5 of PEEP Has Nieves to bedside drainage Chart reviewed Discussed with RN He remains critically ill 05/01/2021 Patient seen and examined in the [place] [address] ICU He is still intubated AC/20/500/40 percent with 5 of PEEP In A. fib Sedated with propofol fentanyl and Versed Has a heparin drip Missy with RN Chart reviewed He remains critically 04/30/2020 Patient seen and examined in the [place] [address] ICU He remains on the vent AC/20/500/40 5% with 5 PEEP Currently on dialysis Has OG feeds running Has a Nieves to bedside drainage Sedated with propofol and fentanyl Reviewed chart Discussed with RN He remains critically ill Mr Cunha is a 75 yo male w/ PMHx CAD, HTN, Hyperlipidemia, subclavian steel syndrome, subclavian stenosis s/p left subclavian sent placement complicated by retroperitoneal hematoma s/p evacuation in 08/2015), asthma, BART, CKD, DM2 who p resented from home with home health care noted that he was short of breath and valverde with O2 saturations less than 89% as low as 84% not improved with nasal cannulated oxygen placed on CPAP and brought to ED for further care. He was just discharged from the hospital a week ago on April 19, 2021 for abdominal pain and was going for further cardiac testing with outpatient stress testing scheduled on May 28, 2021. Had echocardiogram April 17, 2021 with normal-appearing EF with moderate concentric LVH no significant valvular abnormalities. WBC 20, Hb 10.7, platelets 268, NA 140, K3.8, BUN 21, CR 2.9, glucose 162, albumin 3, troponin I 1.372, NT proBNP 33,318. EKG appears sinus tachycardia rate of 105 bpm with multiple PACs small ST depressions in lead II and V5. TWI in V6. Chest radiograph with diffuse interstitial and alveolar opacities and ET tube 5.8 cm above the leilani. Due to worsening respiratory status ED physician elected to intubate patient. Seen postintubation. Blood pressure little low after propofol bolus, but improved. Significant white frothy sputum per ET tube. Admitted to ICU for further care 04/29/2021: Afebrile, remains on vent at FiO2 45%, PEEP 5. WBC 20.4. Hemodialysis per nephrology. We will continue treatment with empiric antibiotics, remdesivir, and steroids. Continue heparin infusion and supportive care. Critical care time 30 minutes reviewing chart, review labs, review imaging, discussion with RN. 04/28/2021: Afebrile. FiO2 50%, PEEP 5. Nontunneled HD catheter placed yesterday due to worsening kidney function; eGFR 16 (CKD4). Chest x-ray showed unchanged interstitial opacities. Continue empiric antibiotics, steroids, and remdesivir. Continue heparin infusion, and continue to follow cardiology recommendations on new diagnosis of A. fib. Critical care time 30 minutes reviewing chart, review labs, review imaging, discussion with RN. 04/27/2021: Afebrile. On vent with FiO2 50%, PEEP 5. Troponin 2.8 yesterday; probable type II, demand ischemia. New onset A. fib. Continue heparin drip and as needed digoxin, per cardiology. Continue treatment with remdesivir, steroids, and prophylactic antibiotics. CBG 323 this morning; will add basal insulin. Critical care 30 minutes spent reviewing labs, reviewing imaging, reviewing charts, and discussion with RN. 04/26/2021: COVID-19 positive. Febrile overnight that was managed with cooling blankets. On vent with FiO2 50%, PEEP 5. Per cardiology, elevated troponins likely secondary to demand ischemia; continue heparin drip per cardiology. Ma intain fluid balance and avoid nephrotoxins. Continue treatment with remdesivir, steroids, and prophylactic antibiotics. 30 minutes critical care time spent reviewing charts, reviewing labs, reviewing imaging, and discussion with RN. 04/25/2021: On vent FiO2 50, PEEP 5. Febrile, T-max 103.3. Patient was initiated on cooling blankets. Procalcitonin 0.13. Continue coverage for hospital-acquired pneumonia with cefepime. MRSA PCR pending. Critical care time 30 minutes spent reviewing charts, reviewing labs, review of imaging, discussion with RN. Vitals/I&O Vitals/I&O: Vital Signs Date Time Temp Pulse Resp B/P (MAP) Pulse Ox O2 Delivery O2 Flow Rate FiO2 05/16/21 06:52 60 168/75 05/16/21 05:45 99 Ventilator 05/16/21 04:00 98.0 20 98.0 I & O 05/15/21 05/15/21 05/16/21 15:00 23:00 07:00 Intake Total 820 ml 1523 ml 1519 ml Output Total 750 ml 975 ml 1025 ml Balance 70 ml 548 ml 494 ml Physical Exam Physical Exam: GENERAL: Well-developed and well-nourished male, intubated, sedated. HEENT: Normocephalic, atraumatic, and anicteric. ETT and OGT present. NECK: right dialysis catheter present clean,central line changed ( 05/11) HEART: S1, S2. LUNGS: Decreased breath sounds. ABDOMEN: Soft, obese, bowel sounds present. GENITOURINARY: Nieves in place. EXTREMITIES: Edema present. DERMATOLOGIC: Warm, dry, no generalized rash. NEUROLOGIC: Intubated. PSYCHIATRIC: Unable to obtain. General: No acute distress, Other (Sedated) Heart: Regular rate, Normal S1, Normal S2 Lungs: Other (Patient with trach in place now no respiratory distress) Abdomen: Normal bowel sounds, Other (ND) Extremities: No clubbing, No cyanosis, Other (Lower extremity edema) Skin: No rashes, No breakdown, No significant lesion Labs Labs: Laboratory Tests Test 05/15/21 08:00 05/15/21 12:36 05/15/21 17:44 05/16/21 00:26 O2 Saturation 92 % (92-99) Arterial Blood pH 7.45 (7.35-7.45) Arterial Blood pCO2 at Patient Temp 34 mmHg (35-46) Arterial Blood pO2 at Patient Temp 65 mmHg (65-108) Arterial Blood HCO3 23 mmol/L (21-28) Arterial Blood Base Excess -1 mmol/L (-3-3) FiO2 40 Glucose (Fingerstick) 176 mg/dL (70-99) 191 mg/dL (70-99) 223 mg/dL (70-99) Test 05/16/21 07:29 Glucose (Fingerstick) 168 mg/dL (70-99) Assessment and Plan Assessmemt and Plan Problems Medical Problems: (1) Elevated troponin Status: Acute (2) Person under investigation for COVID-19 Status: Acute (3) Pulmonary edema Status: Acute Comment Review of Relevant I have reviewed the following items juanita (where applicable) has been applied. Justifications for Admission General Conditions Altered mental status?: Yes Justification of admission: Patient has tachycardia (> 100 beats per minute) or hypotension (SBP < 90 mm Hg) leading to inadequate systemic perfusion as indicated by severe/persistent altered mental status. Other Justification BRIAN ERNST MD May 16, 2021 07:56
[2021-05-16 07:57] LABS: CALCIUM 8.5 mg/dL (8.5-10.1); CREATININE 2.9 mg/dL (0.7-1.3); GFR 25.9; MAGNESIUM 1.9 mg/dL (1.8-2.4); PHOSPHORUS 4.9 mg/dL (2.6-4.7); POTASSIUM 3.2 mmol/L (3.5-5.1)
[2021-05-16] MEDS: ASPIRIN CHEWABLE 81 MG TABLET. PO SCH (08:08)
[2021-05-16] MEDS: PANTOPRAZOLE IV PUSH 40 MG VIAL. IVP SCH (08:08)
[2021-05-16] MEDS: hydrALAZINE 25 MG TABLET PO SCH ×4 (08:09→21:22)
[2021-05-16] MEDS: hydrALAZINE 20 MG/ML VIAL. IVP PRN (08:09)
[2021-05-16] MEDS: AMIODARONE HCL 200 MG TABLET. PO SCH (08:11)
[2021-05-16 08:23] LABS: BASE EXCESS ABG -2 mmol/L (-3-3); HCO3 ABG 21 mmol/L (21-28); PCO2 ABG 30 mmHg (35-46); PO2 ABG 72 mmHg (65-108); SAT O2 ABG 95 % (92-99)
[2021-05-16 08:25] LABS: FIO2 ABG 40
--- NOTE | 2021-05-16 08:31 | PDOC ---
PULMONARY PROGRESS NOTES DATE: 05/16/21 TIME: 08:31 Subjective Remains on ventilatory support 40%/peep of 5 Sedated Status post tracheostomy 05/15/2021, tolerated well Cardene drip Overnight concerns from nursing Vitals Vital Signs Date Time Temp Pulse Resp B/P (MAP) Pulse Ox O2 Delivery O2 Flow Rate FiO2 05/16/21 08:11 60 172/71 05/16/21 08:08 99 Ventilator 05/16/21 06:00 20 05/16/21 04:00 98.0 98.0 Comments Unable to report review of systems trach/sedated HEENT: Other (Trachea midline) Lungs: Clear, Other Cardiovascular: S1, S2 Abdomen: Soft Labs Laboratory Tests Test 05/14/21 21:57 05/15/21 00:01 05/15/21 06:10 05/15/21 06:12 Glucose (Fingerstick) 148 mg/dL (70-99) 164 mg/dL (70-99) 142 mg/dL (70-99) Sodium Level 128 mmol/L (136-145) Potassium Level 3.7 mmol/L (3.5-5.1) Chloride Level 94 mmol/L (98-107) Carbon Dioxide Level 26 mmol/L (21-32) Anion Gap 8 (6-14) Blood Urea Nitrogen 33 mg/dL (8-26) Creatinine 2.9 mg/dL (0.7-1.3) Estimated GFR (Cockcroft-Gault) 25.9 Glucose Level 149 mg/dL (70-99) Calcium Level 8.4 mg/dL (8.5-10.1) Test 05/15/21 08:00 05/15/21 12:36 05/15/21 17:44 05/16/21 00:26 O2 Saturation 92 % (92-99) Arterial Blood pH 7.45 (7.35-7.45) Arterial Blood pCO2 at Patient Temp 34 mmHg (35-46) Arterial Blood pO2 at Patient Temp 65 mmHg (65-108) Arterial Blood HCO3 23 mmol/L (21-28) Arterial Blood Base Excess -1 mmol/L (-3-3) FiO2 40 Glucose (Fingerstick) 176 mg/dL (70-99) 191 mg/dL (70-99) 223 mg/dL (70-99) Test 8/11/21 07:20 05/16/21 07:29 05/16/21 08:20 Sodium Level 130 mmol/L (136-145) Potassium Level 3.2 mmol/L (3.5-5.1) Chloride Level 95 mmol/L (98-107) Carbon Dioxide Level 23 mmol/L (21-32) Anion Gap 12 (6-14) Blood Urea Nitrogen 34 mg/dL (8-26) Creatinine 2.9 mg/dL (0.7-1.3) Estimated GFR (Cockcroft-Gault) 25.9 Glucose Level 183 mg/dL (70-99) Calcium Level 8.5 mg/dL (8.5-10.1) Phosphorus Level 4.9 mg/dL (2.6-4.7) Magnesium Level 1.9 mg/dL (1.8-2.4) Glucose (Fingerstick) 168 mg/dL (70-99) O2 Saturation 95 % (92-99) Arterial Blood pH 7.47 (7.35-7.45) Arterial Blood pCO2 at Patient Temp 30 mmHg (35-46) Arterial Blood pO2 at Patient Temp 72 mmHg (65-108) Arterial Blood HCO3 21 mmol/L (21-28) Arterial Blood Base Excess -2 mmol/L (-3-3) FiO2 40 Laboratory Tests Test 05/15/21 12:36 05/15/21 17:44 05/16/21 00:26 05/16/21 07:20 Glucose (Fingerstick) 176 mg/dL (70-99) 191 mg/dL (70-99) 223 mg/dL (70-99) Sodium Level 130 mmol/L (136-145) Potassium Level 3.2 mmol/L (3.5-5.1) Chloride Level 95 mmol/L (98-107) Carbon Dioxide Level 23 mmol/L (21-32) Anion Gap 12 (6-14) Blood Urea Nitrogen 34 mg/dL (8-26) Creatinine 2.9 mg/dL (0.7-1.3) Estimated GFR (Cockcroft-Gault) 25.9 Glucose Level 183 mg/dL (70-99) Calcium Level 8.5 mg/dL (8.5-10.1) Phosphorus Level 4.9 mg/dL (2.6-4.7) Magnesium Level 1.9 mg/dL (1.8-2.4) Test 05/16/21 07:29 05/16/21 08:20 Glucose (Fingerstick) 168 mg/dL (70-99) O2 Saturation 95 % (92-99) Arterial Blood pH 7.47 (7.35-7.45) Arterial Blood pCO2 at Patient Temp 30 mmHg (35-46) Arterial Blood pO2 at Patient Temp 72 mmHg (65-108) Arterial Blood HCO3 21 mmol/L (21-28) Arterial Blood Base Excess -2 mmol/L (-3-3) FiO2 40 Medications Active Scripts Medications Dose Route/Sig Max Daily Dose Days Date Category Glyburide 2.5 Mg Tablet 1 Tab PO DAILY 04/19/21 Rx Polyethylene Glycol 3350 17 Gm Powd.pack 17 Gm PO DAILY 04/19/21 Rx Dok (Docusate Sodium) 100 Mg Capsule 100 Mg PO PRN DAILY PRN 30 04/19/21 Rx Bisacodyl 5 Mg Tablet.dr 5 Mg PO PRN DAILY PRN 04/19/21 Rx Acetaminophen 325 Mg Tablet 650 Mg PO PRN Q4HRS PRN 04/19/21 Rx Aspirin Ec (Aspirin) 81 Mg Tablet.dr 81 Mg PO DAILYWBKFT 30 04/19/21 Rx Hydralazine Hcl 25 Mg Tablet 25 Mg PO QID 30 04/19/21 Rx Fenofibrate 54 Mg Tablet 1 Tab PO DAILY 04/17/21 Reported Potassium Chloride (Potassium Chloride) 20 Meq Tablet.er 20 Meq PO DAILY 04/17/21 Reported Coreg (Carvedilol) 12.5 Mg Tablet 37.5 Mg PO BIDWMEALS 04/17/21 Reported Rosuvastatin Calcium 40 Mg Tablet 40 Mg PO QHS 04/17/21 Reported Gabapentin (Gabapentin) 100 Mg Capsule 200 Mg PO BID 04/17/21 Reported Montelukast Sodium Tablet (Montelukast Sodium) 10 Mg Tablet 10 Mg PO HS 04/17/21 Reported Protonix (Pantoprazole Sodium) 20 Mg Tablet.dr 2 Tab PO DAILY 04/17/21 Reported Amlodipine Besylate 5 Mg Tablet 5 Mg PO DAILY 04/17/21 Reported Furosemide 40 Mg Tablet 1 Tab PO DAILY 04/17/21 Reported Proair Hfa Inhaler (Albuterol Sulfate) 8.5 Gm Hfa.aer.ad 2 Puff IH PRN Q4-6HRS PRN 21 04/16/21 Reported Advair 100-50 Diskus (Fluticasone/Salmeterol) 1 Each Disk.w.dev 1 Puff IH BID 04/16/21 Reported Comments Impression . IMPRESSION: 1. Acute hypoxic respiratory failure, multifactorial/COVID-19 viral pneumonia/ARDS, ongoing, intubated 04/25/2021, now status post tracheostomy 05/15/[address] chest with bilateral diffuse interstitial infiltrates without any significant pleural effusion 3. Leukocytosis, sepsis--ongoing ID following 4. Non-ST segment elevation AL 5. History of tobacco use, suspect COPD, unknown FEV1 6. Chronic kidney disease.== Neph neurology following, hemodialysis 7. Metabolic acidosis multifactorial 8. Abnormal chest x-ray 9. Hypoglycemia, continue to monitor--- resolved 10. Hypotension, suspect volume deficit,/possible sepsis--- resolved 11. Fever--resolved 12. Anemia--improved Plan . Updated 05/16/21 Continue current vent support 20/500/40%/5 Will reduce sedation, and start with pressure support trials in the morning Follow ABG/CXR--changes as needed Follow ID recs for ABX --continue meropenem and Zyvox Trach care daily and as needed Follow surgery recommendations plan for tracheostomy 05/15/2021 Follow nephrology recs-- HD Monitor hemoglobin--stable Follow Cardiology recs--preserved LV function, hypertension, cardene gtt Continue TF for nutritional support DVT/GI PPX:no AC 2/2 anemia D/W RN and RT Pt. is DNR Social work for DC planning LTACH cct 30 min Updated 05/15/21 Continue current vent support 20/500/40%/5 Follow ABG/CXR--changes as needed Follow ID recs for ABX --Continue cefepime, Zyvox Follow surgery recommendations plan for tracheostomy 05/15/2021 Follow nephrology recs-- HD --hemodialysis, Monitor hemoglobin Follow Cardiology recs--preserved LV function, hypertension, back on cardene gtt Continue TF for nutritional support --on hold for procedure DVT/GI PPX:no AC 2/2 anemia D/W RN and RT Pt. is DNR Addendum;. Patient was reevaluated after tracheostomy. No initial complications. No bleeding. We will keep him sedated for next 24 hours and restart weaning process from tomorrow. cct 30 min Updated 05/14/21 Continue current vent support 20/500/40%/5 Follow ABG/CXR--changes as needed Follow ID recs for ABX --Continue cefepime, Zyvox Follow surgery recommendations plan for tracheostomy 05/15/2021 Follow nephrology recs-- HD --hemodialysis, Monitor hemoglobin Follow Cardiology recs--preserved LV function, hypertension Continue TF for nutritional support DVT/GI PPX:D/C subQ heparin 2/2 anemia D/W RN and RT Pt. is DNR Social work for DC planning--- LTACH question I have spoken to patient's daughter again this morning who is the DPOA. She will inform me in the next few hours about confirmation for tracheostomy. cct 30 min JONES FISHMAN MD May 16, 2021 08:31
[2021-05-16] MEDS ORDERED: POTASSIUM BICARB 20 MEQ EFFERVESCENT TABLET. FT ONE (09:30)
--- NOTE | 2021-05-16 10:01 | PDOC ---
Renal-Progress Notes Subjective Notes Notes ON THE VENT History of Present Illness Hx of present illness NO ACUTE CHANGES Vitals Vitals Vital Signs Date Time Temp Pulse Resp B/P (MAP) Pulse Ox O2 Delivery O2 Flow Rate FiO2 05/16/21 08:11 60 172/71 05/16/21 08:08 99 Ventilator 05/16/21 06:00 20 05/16/21 04:00 98.0 98.0 Weight Weight [ ] I.O. Intake and Output Intake and Output 05/16/21 07:00 Intake Total 3862 ml Output Total 3025 ml Balance 837 ml Intake Oral 0 ml IV Total 1225 ml Tube Feeding 1797 ml Other 840 ml Output Urine Total 3025 ml Labs Labs Laboratory Tests Test 05/15/21 12:36 05/15/21 17:44 05/16/21 00:26 05/16/21 07:20 Glucose (Fingerstick) 176 mg/dL (70-99) 191 mg/dL (70-99) 223 mg/dL (70-99) Sodium Level 130 mmol/L (136-145) Potassium Level 3.2 mmol/L (3.5-5.1) Chloride Level 95 mmol/L (98-107) Carbon Dioxide Level 23 mmol/L (21-32) Anion Gap 12 (6-14) Blood Urea Nitrogen 34 mg/dL (8-26) Creatinine 2.9 mg/dL (0.7-1.3) Estimated GFR (Cockcroft-Gault) 25.9 Glucose Level 183 mg/dL (70-99) Calcium Level 8.5 mg/dL (8.5-10.1) Phosphorus Level 4.9 mg/dL (2.6-4.7) Magnesium Level 1.9 mg/dL (1.8-2.4) Test 05/16/21 07:29 05/16/21 08:20 Glucose (Fingerstick) 168 mg/dL (70-99) O2 Saturation 95 % (92-99) Arterial Blood pH 7.47 (7.35-7.45) Arterial Blood pCO2 at Patient Temp 30 mmHg (35-46) Arterial Blood pO2 at Patient Temp 72 mmHg (65-108) Arterial Blood HCO3 21 mmol/L (21-28) Arterial Blood Base Excess -2 mmol/L (-3-3) FiO2 40 Micro Micro Microbiology 05/11/21 Gram Stain Evaluation - Final, Complete 05/11/21 Respiratory Culture - Final, Complete 05/04/21 Gram Stain - Final, Complete 05/04/21 Aerobic Culture - Final, Complete 05/04/21 Blood Culture - Final, Complete NO GROWTH AFTER 5 DAYS Review of Systems Constitutional: yes: unresponsive, other (UNABLE TO OBTAIN) Physical Exam General Appearance: other (ON THE VENT) Respiratory: decreased breath sounds Heart: S1S2 Abdomen: bowel sounds present Genitourinary: bladder flat Extremities: atrophy Neurology: other (sedated) Musculoskeletal: Other Assessment Assessment IMP HYPONATREMIA HYPOKALEMIA [id number] IMPROVING BUT NO CLEARANCE-CR OF 2.9 CKD - SUSPECT STAGE 3 ACUTE HYPOXIC RESP FAILURE-FIO2 INCREASED COVID 19 PNEUMONIA MET ACIDOSIS-BETTER LEUCOCYTOSIS HYPOKALEMIA-CORRECTED ANEMIA S/P TRACH PLAN REPLACE K REMAINS CRITICALLY ILL VENT SUPPORT-FIO2 UP TO 40% NUTRITION-NEPRO TF HOLD BETTY DUE TO HYPERCOAGULABLE STATE PRESSORS NEEDED HD LAST ON SAT HOLD HD STILL MAINTAIN HD LINE CONT TO MONITOR FOR RENAL RECOVERY DECREASE LASIX WILL FOLLOW JEANINE NEWTON MD May 16, 2021 10:01
--- NOTE | 2021-05-16 12:05 | PDOC ---
SURGICAL PROGRESS NOTE DATE: 05/16/21 TIME: 12:04 Subjective Pt asleep on vent trach intact and functional will sign off, but please call for questions. Vital Signs Vital Signs Date Time Temp Pulse Resp B/P (MAP) Pulse Ox O2 Delivery O2 Flow Rate FiO2 05/16/21 11:19 100 Ventilator 05/16/21 10:00 68 19 162/69 (100) 05/16/21 08:00 93.9 93.9 I&O Intake and Output 05/16/21 07:00 Intake Total 3862 ml Output Total 3025 ml Balance 837 ml Intake Oral 0 ml IV Total 1225 ml Tube Feeding 1797 ml Other 840 ml Output Urine Total 3025 ml Labs Laboratory Tests Test 05/14/21 21:57 05/15/21 00:01 05/15/21 06:10 05/15/21 06:12 Glucose (Fingerstick) 148 mg/dL (70-99) 164 mg/dL (70-99) 142 mg/dL (70-99) Sodium Level 128 mmol/L (136-145) Potassium Level 3.7 mmol/L (3.5-5.1) Chloride Level 94 mmol/L (98-107) Carbon Dioxide Level 26 mmol/L (21-32) Anion Gap 8 (6-14) Blood Urea Nitrogen 33 mg/dL (8-26) Creatinine 2.9 mg/dL (0.7-1.3) Estimated GFR (Cockcroft-Gault) 25.9 Glucose Level 149 mg/dL (70-99) Calcium Level 8.4 mg/dL (8.5-10.1) Test 05/15/21 08:00 05/15/21 12:36 05/15/21 17:44 05/16/21 00:26 O2 Saturation 92 % (92-99) Arterial Blood pH 7.45 (7.35-7.45) Arterial Blood pCO2 at Patient Temp 34 mmHg (35-46) Arterial Blood pO2 at Patient Temp 65 mmHg (65-108) Arterial Blood HCO3 23 mmol/L (21-28) Arterial Blood Base Excess -1 mmol/L (-3-3) FiO2 40 Glucose (Fingerstick) 176 mg/dL (70-99) 191 mg/dL (70-99) 223 mg/dL (70-99) Test 05/16/21 07:20 05/16/21 07:29 05/16/21 08:20 05/16/21 11:48 Sodium Level 130 mmol/L (136-145) Potassium Level 3.2 mmol/L (3.5-5.1) Chloride Level 95 mmol/L (98-107) Carbon Dioxide Level 23 mmol/L (21-32) Anion Gap 12 (6-14) Blood Urea Nitrogen 34 mg/dL (8-26) Creatinine 2.9 mg/dL (0.7-1.3) Estimated GFR (Cockcroft-Gault) 25.9 Glucose Level 183 mg/dL (70-99) Calcium Level 8.5 mg/dL (8.5-10.1) Phosphorus Level 4.9 mg/dL (2.6-4.7) Magnesium Level 1.9 mg/dL (1.8-2.4) Glucose (Fingerstick) 168 mg/dL (70-99) 185 mg/dL (70-99) O2 Saturation 95 % (92-99) Arterial Blood pH 7.47 (7.35-7.45) Arterial Blood pCO2 at Patient Temp 30 mmHg (35-46) Arterial Blood pO2 at Patient Temp 72 mmHg (65-108) Arterial Blood HCO3 21 mmol/L (21-28) Arterial Blood Base Excess -2 mmol/L (-3-3) FiO2 40 Laboratory Tests Test 05/15/21 12:36 05/15/21 17:44 05/16/21 00:26 05/16/21 07:20 Glucose (Fingerstick) 176 mg/dL (70-99) 191 mg/dL (70-99) 223 mg/dL (70-99) Sodium Level 130 mmol/L (136-145) Potassium Level 3.2 mmol/L (3.5-5.1) Chloride Level 95 mmol/L (98-107) Carbon Dioxide Level 23 mmol/L (21-32) Anion Gap 12 (6-14) Blood Urea Nitrogen 34 mg/dL (8-26) Creatinine 2.9 mg/dL (0.7-1.3) Estimated GFR (Cockcroft-Gault) 25.9 Glucose Level 183 mg/dL (70-99) Calcium Level 8.5 mg/dL (8.5-10.1) Phosphorus Level 4.9 mg/dL (2.6-4.7) Magnesium Level 1.9 mg/dL (1.8-2.4) Test 05/16/21 07:29 05/16/21 08:20 05/16/21 11:48 Glucose (Fingerstick) 168 mg/dL (70-99) 185 mg/dL (70-99) O2 Saturation 95 % (92-99) Arterial Blood pH 7.47 (7.35-7.45) Arterial Blood pCO2 at Patient Temp 30 mmHg (35-46) Arterial Blood pO2 at Patient Temp 72 mmHg (65-108) Arterial Blood HCO3 21 mmol/L (21-28) Arterial Blood Base Excess -2 mmol/L (-3-3) FiO2 40 Problem List Problems Medical Problems: (1) Elevated troponin Status: Acute (2) Person under investigation for COVID-19 Status: Acute (3) Pulmonary edema Status: Acute Justicifation of Admission Dx: Justifications for Admission: Justification of Admission Dx: Yes Aspiration Pneumonia: Hemodynamic Instability TIO CARSON MD May 16, 2021 12:05
--- NOTE | 2021-05-16 15:18 | NUR ---
SS following up with discharge planning. SS reviewed pt chart and discussed with pt RN. Pt is currently on the vent at 40%. COVID19 positive. Trach placed on 05/15/2021. Pt on IV Zyvox, IV Meropenem, and IV Lasix. Pt on Propofol, Precedex, and Fentanyl. SS contacted pt's granddaughter, Annika, , and was notified that they would like pt to go to [facility], ; fax [phone]. SS contacted [facility] to notify and left voicemail for admissions. Pt will need insurance authorization. SS will continue to follow for discharge planning.
[2021-05-16 17:07] LABS: MAGNESIUM 1.8 mg/dL (1.8-2.4); POTASSIUM 3.4 mmol/L (3.5-5.1)
--- NOTE | 2021-05-16 17:37 | NUR ---
Wound Care Wound Type/Assessment: Patient was seen for wound care follow up. Patient continues with a large, intact blood blister on plantar side of right foot. Tissue is stable with no openings. Periwound intact and clear. Wound #2 is a left corneal avulsion. Sclera is edematous and hyperemic. Small scleral avulsion to left globe on the lateral side. Treatment Recommendations/Plan: Continue to skin prep to periwound, foam dressing was applied for protection. Recommend change every 3-4 days. Wound #2: Currently being treated with mineral oil ointment and secure covering of eye with gauze. Recommend antibiotic ointment to be prescribed by Infectious Disease. Eye must remain shut and covered unless examining. Education provided: Patient is on a ventilator. Educated RN on treatment and care of the eye. Offloading surface/device: wedge, ICU bed, float feet with pillows, end bedrail removed, as it's difficult for pt's feet to avoid touching d/t height. Recommended Referrals/Tests: None Discharge Recommendations for dressings: Continue current treatment plan.
[2021-05-16] MEDS ORDERED: MAGNESIUM SULFATE 2GM 50 ML IV ONE (18:00)
[2021-05-16] MEDS: POTASSIUM BICARB 20 MEQ EFFERVESCENT TABLET. PO SCH ×2 (18:11→21:24)
--- NOTE | 2021-05-16 18:23 | RAD ---
XR ABDOMEN 1V Clinical Indication: Reason: NG placement / Spl. Instructions: / History: Comparison: AP chest, 3 days ago. Findings: Enteric tube tip is in the distal stomach. The right abdomen is excluded. There are opacities in the lung bases, incompletely evaluated. Tips of central lines are seen near the superior atriocaval junction. There is some air in the colon. No dil ated small bowel is seen. There is mild S-shaped scoliosis. IMPRESSION: Enteric tube tip is in the distal stomach. Electronically signed by: Reece Trujillo MD (05/16/2021 6:21 PM) [facility]
[2021-05-16] MEDS: MONTELUKAST SODIUM 10 MG TABLET. PO SCH (21:22)
[2021-05-16] MEDS: ATORVASTATIN CALCIUM 40 MG TABLET. PO SCH (21:22)
[2021-05-16] MEDS: NYSTATIN TOPICAL POWDER 15GM BOTTLE. TP SCH (21:23)
[2021-05-16] MEDS: INSULIN GLARGINE SYRINGE. SQ SCH (21:53)
[2021-05-17] VITALS (24 sets, daily range): BP systolic 109–201; BP diastolic 54–93
[2021-05-17] MEDS: INSULIN LISPRO 300 UNITS/3 ML VIAL. SQ SCH ×5 (00:40→23:13)
[2021-05-17] MEDS: DEXMEDETOMIDINE 400 MCG in IV NORMAL SALINE 100ML 96 ML IV PRN ×7 (03:14→23:07)
[2021-05-17] MEDS: PROPOFOL 100 ML IV PRN (03:15)
[2021-05-17] MEDS: METOPROLOL IV PUSH 5 MG/5 ML VIAL. IVP SCH ×5 (06:51→23:07)
--- NOTE | 2021-05-17 07:27 | PDOC ---
Infectious Disease Note Subjective: Subjective Intubated, opens eyes Both eyes irritated left greater than right Discussed with RN Was hypothermic yesterday requiring Chantal hugger Currently off Vital Signs: Vital Signs Vital Signs Date Time Temp Pulse Resp B/P (MAP) Pulse Ox O2 Delivery O2 Flow Rate FiO2 05/17/21 07:00 86 20 176/76 (109) 100 Ventilator 05/17/21 04:00 99.0 99.0 Physical Exam: PHYSICAL EXAM GENERAL: Well-developed and well-nourished male, intubated, sedated. HEENT: Normocephalic, atraumatic, redness and erythema of both eyes left greater than right ETT and OGT present. NECK: right dialysis catheter present clean,central line changed ( 05/11) HEART: S1, S2. LUNGS: Decreased breath sounds. ABDOMEN: Soft, obese, bowel sounds present. GENITOURINARY: Nieves in place. EXTREMITIES: Edema present. DERMATOLOGIC: Warm, dry, no generalized rash. NEUROLOGIC: Intubated. PICC line clean Medications: Inpatient Meds: Medications reviewed. Labs: Lab Laboratory Tests Test 05/16/21 07:29 05/16/21 08:20 05/16/21 11:48 05/16/21 16:50 Glucose (Fingerstick) 168 mg/dL (70-99) 185 mg/dL (70-99) O2 Saturation 95 % (92-99) Arterial Blood pH 7.47 (7.35-7.45) Arterial Blood pCO2 at Patient Temp 30 mmHg (35-46) Arterial Blood pO2 at Patient Temp 72 mmHg (65-108) Arterial Blood HCO3 21 mmol/L (21-28) Arterial Blood Base Excess -2 mmol/L (-3-3) FiO2 40 Potassium Level 3.4 mmol/L (3.5-5.1) Magnesium Level 1.8 mg/dL (1.8-2.4) Test 05/16/21 17:51 05/17/21 00:39 05/17/21 07:00 Glucose (Fingerstick) 149 mg/dL (70-99) 167 mg/dL (70-99) 120 mg/dL (70-99) Objective: Assessment: 1. Febrile illness could be healthcare-associated infection,resolved 2. Leukocytosis, on steroids. 3. COVID-19 pneumonia. 4. Acute hypoxic respiratory failure status post intubation. 5. Congestive heart failure, acute on chronic. 6. Acute kidney injury on chronic kidney disease on hemodialysis. 7. Diabetes mellitus 2. 8. Atrial fibrillation. 9. Anemia. 10. Protein-calorie malnutrition. 11. Hypertention 12.Hyponatremia Plan: Plan of Care 1. Continue Meropenem renal dosing as needed,pharmacy to assist on Zyvox -had been on cefepime previously sputum culture neg so far 2. Follow-up labs and cultures 3. Central line changed on 05/11 4. C. difficile PCR negative 5. Continue supportive care. 6. Critically ill. Local eye care Local antibiotic ointment Discussed with nursing staff ALAYNA RIVERO MD May 17, 2021 07:27
[2021-05-17 07:39] LABS: CALCIUM 8.5 mg/dL (8.5-10.1); GFR 24.9; MAGNESIUM 2.1 mg/dL (1.8-2.4); PHOSPHORUS 4.2 mg/dL (2.6-4.7)
[2021-05-17] MEDS: ASPIRIN CHEWABLE 81 MG TABLET. PO SCH (07:48)
[2021-05-17] MEDS: PANTOPRAZOLE IV PUSH 40 MG VIAL. IVP SCH (07:48)
[2021-05-17] MEDS: AMIODARONE HCL 200 MG TABLET. PO SCH (07:48)
[2021-05-17] MEDS: hydrALAZINE 25 MG TABLET PO SCH ×4 (07:49→20:55)
[2021-05-17] MEDS: FUROSEMIDE 40 MG/4 ML VIAL. IVP SCH (07:49)
[2021-05-17 07:51] LABS: BASE EXCESS ABG -2 mmol/L (-3-3); HCO3 ABG 22 mmol/L (21-28); PCO2 ABG 34 mmHg (35-46); PO2 ABG 66 mmHg (65-108); SAT O2 ABG 92 % (92-99)
[2021-05-17 07:56] LABS: FIO2 ABG 40/VENT
[2021-05-17] MEDS: MEROPENEM 500 MG in IV NORMAL SALINE 50ML 50 ML IV SCH ×2 (08:01→20:53)
[2021-05-17] MEDS: NYSTATIN TOPICAL POWDER 15GM BOTTLE. TP SCH ×2 (09:22→20:57)
--- NOTE | 2021-05-17 09:37 | PDOC ---
Renal-Progress Notes Subjective Notes Notes ON THE VENT History of Present Illness Hx of present illness HAVING DIARRHEA Vitals Vitals Vital Signs Date Time Temp Pulse Resp B/P (MAP) Pulse Ox O2 Delivery O2 Flow Rate FiO2 05/17/21 09:09 100 Ventilator 05/17/21 07:49 86 176/76 05/17/21 07:00 20 05/17/21 04:00 99.0 99.0 Weight Weight [ ] I.O. Intake and Output Intake and Output 05/17/21 07:00 Intake Total 4544.74 ml Output Total 2175 ml Balance 2369.74 ml Intake Oral 0 ml IV Total 1403.74 ml Tube Feeding 1699 ml Other 1442 ml Output Urine Total 2175 ml Labs Labs Laboratory Tests Test 05/16/21 11:48 05/16/21 16:50 05/16/21 17:51 05/17/21 00:39 Glucose (Fingerstick) 185 mg/dL (70-99) 149 mg/dL (70-99) 167 mg/dL (70-99) Potassium Level 3.4 mmol/L (3.5-5.1) Magnesium Level 1.8 mg/dL (1.8-2.4) Test 05/17/21 07:00 05/17/21 07:30 Sodium Level 129 mmol/L (136-145) Potassium Level 4.0 mmol/L (3.5-5.1) Chloride Level 95 mmol/L (98-107) Carbon Dioxide Level 26 mmol/L (21-32) Anion Gap 8 (6-14) Blood Urea Nitrogen 37 mg/dL (8-26) Creatinine 3.0 mg/dL (0.7-1.3) Estimated GFR (Cockcroft-Gault) 24.9 Glucose Level 127 mg/dL (70-99) Glucose (Fingerstick) 120 mg/dL (70-99) Calcium Level 8.5 mg/dL (8.5-10.1) Phosphorus Level 4.2 mg/dL (2.6-4.7) Magnesium Level 2.1 mg/dL (1.8-2.4) O2 Saturation 92 % (92-99) Arterial Blood pH 7.43 (7.35-7.45) Arterial Blood pCO2 at Patient Temp 34 mmHg (35-46) Arterial Blood pO2 at Patient Temp 66 mmHg (65-108) Arterial Blood HCO3 22 mmol/L (21-28) Arterial Blood Base Excess -2 mmol/L (-3-3) FiO2 40/vent Micro Micro Microbiology 05/11/21 Gram Stain Evaluation - Final, Complete 05/11/21 Respiratory Culture - Final, Complete 05/04/21 Gram Stain - Final, Complete 05/04/21 Aerobic Culture - Final, Complete 05/04/21 Blood Culture - Final, Complete NO GROWTH AFTER 5 DAYS Review of Systems Constitutional: yes: unresponsive, other (UNABLE TO OBTAIN) Physical Exam General Appearance: other (ON THE VENT) Respiratory: decreased breath sounds Heart: S1S2 Abdomen: bowel sounds present Genitourinary: bladder flat Extremities: atrophy Neurology: other (sedated) Musculoskeletal: Other Assessment Assessment IMP HYPONATREMIA HYPOKALEMIA-CORRECTED [id number] IMPROVING BUT NO CLEARANCE-CR OF 3.0 CKD - SUSPECT STAGE 3 ACUTE HYPOXIC RESP FAILURE-FIO2 INCREASED COVID 19 PNEUMONIA MET ACIDOSIS-BETTER LEUCOCYTOSIS HYPOKALEMIA-CORRECTED ANEMIA S/P TRACH DIARRHEA PLAN REPLACE K NEEDED REMAINS CRITICALLY ILL VENT SUPPORT-FIO2 UP TO 40% NUTRITION-NEPRO TF HOLD BETTY DUE TO HYPERCOAGULABLE STATE PRESSORS NEEDED HD LAST ON SAT CONT TO HOLD HD MAINTAIN HD LINE CONT TO MONITOR FOR RENAL RECOVERY HOLD LASIX TRIAL OF IVF WILL FOLLOW JEANINE NEWTON MD May 17, 2021 09:37
[2021-05-17] MEDS: IV NORMAL SALINE 1000ML BAG 1,000 ML IV SCH ×2 (11:05→17:41)
--- NOTE | 2021-05-17 11:11 | PDOC ---
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 05/17/21 1111: PULMONARY PROGRESS NOTES DATE: 05/17/21 TIME: 11:04 Subjective Remains on ventilatory support 40%/peep of 5 Sedated w/ trach Cardene drip Overnight concerns from nursing Vitals Vital Signs Date Time Temp Pulse Resp B/P (MAP) Pulse Ox O2 Delivery O2 Flow Rate FiO2 05/17/21 10:55 91 20 140/56 (84) 100 Ventilator 05/17/21 08:00 99.1 99.1 Comments Unable to report review of systems trach/sedated HEENT: Other (Trachea midline) Lungs: Clear, Other Cardiovascular: S1, S2 Abdomen: Soft Labs Laboratory Tests Test 05/15/21 12:36 05/15/21 17:44 05/16/21 00:26 05/16/21 07:20 Glucose (Fingerstick) 176 mg/dL (70-99) 191 mg/dL (70-99) 223 mg/dL (70-99) Sodium Level 130 mmol/L (136-145) Potassium Level 3.2 mmol/L (3.5-5.1) Chloride Level 95 mmol/L (98-107) Carbon Dioxide Level 23 mmol/L (21-32) Anion Gap 12 (6-14) Blood Urea Nitrogen 34 mg/dL (8-26) Creatinine 2.9 mg/dL (0.7-1.3) Estimated GFR (Cockcroft-Gault) 25.9 Glucose Level 183 mg/dL (70-99) Calcium Level 8.5 mg/dL (8.5-10.1) Phosphorus Level 4.9 mg/dL (2.6-4.7) Magnesium Level 1.9 mg/dL (1.8-2.4) Test 05/16/21 07:29 05/16/21 08:20 05/16/21 11:48 05/16/21 16:50 Glucose (Fingerstick) 168 mg/dL (70-99) 185 mg/dL (70-99) O2 Saturation 95 % (92-99) Arterial Blood pH 7.47 (7.35-7.45) Arterial Blood pCO2 at Patient Temp 30 mmHg (35-46) Arterial Blood pO2 at Patient Temp 72 mmHg (65-108) Arterial Blood HCO3 21 mmol/L (21-28) Arterial Blood Base Excess -2 mmol/L (-3-3) FiO2 40 Potassium Level 3.4 mmol/L (3.5-5.1) Magnesium Level 1.8 mg/dL (1.8-2.4) Test 05/16/21 17:51 05/17/21 00:39 05/17/21 07:00 05/17/21 07:30 Glucose (Fingerstick) 149 mg/dL (70-99) 167 mg/dL (70-99) 120 mg/dL (70-99) Sodium Level 129 mmol/L (136-145) Potassium Level 4.0 mmol/L (3.5-5.1) Chloride Level 95 mmol/L (98-107) Carbon Dioxide Level 26 mmol/L (21-32) Anion Gap 8 (6-14) Blood Urea Nitrogen 37 mg/dL (8-26) Creatinine 3.0 mg/dL (0.7-1.3) Estimated GFR (Cockcroft-Gault) 24.9 Glucose Level 127 mg/dL (70-99) Calcium Level 8.5 mg/dL (8.5-10.1) Phosphorus Level 4.2 mg/dL (2.6-4.7) Magnesium Level 2.1 mg/dL (1.8-2.4) O2 Saturation 92 % (92-99) Arterial Blood pH 7.43 (7.35-7.45) Arterial Blood pCO2 at Patient Temp 34 mmHg (35-46) Arterial Blood pO2 at Patient Temp 66 mmHg (65-108) Arterial Blood HCO3 22 mmol/L (21-28) Arterial Blood Base Excess -2 mmol/L (-3-3) FiO2 40/vent Laboratory Tests Test 05/16/21 11:48 05/16/21 16:50 05/16/21 17:51 05/17/21 00:39 Glucose (Fingerstick) 185 mg/dL (70-99) 149 mg/dL (70-99) 167 mg/dL (70-99) Potassium Level 3.4 mmol/L (3.5-5.1) Magnesium Level 1.8 mg/dL (1.8-2.4) Test 05/17/21 07:00 05/17/21 07:30 Sodium Level 129 mmol/L (136-145) Potassium Level 4.0 mmol/L (3.5-5.1) Chloride Level 95 mmol/L (98-107) Carbon Dioxide Level 26 mmol/L (21-32) Anion Gap 8 (6-14) Blood Urea Nitrogen 37 mg/dL (8-26) Creatinine 3.0 mg/dL (0.7-1.3) Estimated GFR (Cockcroft-Gault) 24.9 Glucose Level 127 mg/dL (70-99) Glucose (Fingerstick) 120 mg/dL (70-99) Calcium Level 8.5 mg/dL (8.5-10.1) Phosphorus Level 4.2 mg/dL (2.6-4.7) Magnesium Level 2.1 mg/dL (1.8-2.4) O2 Saturation 92 % (92-99) Arterial Blood pH 7.43 (7.35-7.45) Arterial Blood pCO2 at Patient Temp 34 mmHg (35-46) Arterial Blood pO2 at Patient Temp 66 mmHg (65-108) Arterial Blood HCO3 22 mmol/L (21-28) Arterial Blood Base Excess -2 mmol/L (-3-3) FiO2 40/vent Medications Active Scripts Medications Dose Route/Sig Max Daily Dose Days Date Category Glyburide 2.5 Mg Tablet 1 Tab PO DAILY 04/19/21 Rx Polyethylene Glycol 3350 17 Gm Powd.pack 17 Gm PO DAILY 04/19/21 Rx Dok (Docusate Sodium) 100 Mg Capsule 100 Mg PO PRN DAILY PRN 30 04/19/21 Rx Bisacodyl 5 Mg Tablet.dr 5 Mg PO PRN DAILY PRN 04/19/21 Rx Acetaminophen 325 Mg Tablet 650 Mg PO PRN Q4HRS PRN 04/19/21 Rx Aspirin Ec (Aspirin) 81 Mg Tablet.dr 81 Mg PO DAILYWBKFT 04/19/21 Rx Hydralazine Hcl 25 Mg Tablet 25 Mg PO QID 30 04/19/21 Rx Fenofibrate 54 Mg Tablet 1 Tab PO DAILY 04/17/21 Reported Potassium Chloride (Potassium Chloride) 20 Meq Tablet.er 20 Meq PO DAILY 04/17/21 Reported Coreg (Carvedilol) 12.5 Mg Tablet 37.5 Mg PO BIDWMEALS 04/17/21 Reported Rosuvastatin Calcium 40 Mg Tablet 40 Mg PO QHS 04/17/21 Reported Gabapentin (Gabapentin) 100 Mg Capsule 200 Mg PO BID 04/17/21 Reported Montelukast Sodium Tablet (Montelukast Sodium) 10 Mg Tablet 10 Mg PO HS 04/17/21 Reported Protonix (Pantoprazole Sodium) 20 Mg Tablet. 2 Tab PO DAILY 04/17/21 Reported Amlodipine Besylate 5 Mg Tablet 5 Mg PO DAILY 04/17/21 Reported Furosemide 40 Mg Tablet 1 Tab PO DAILY 04/17/21 Reported Proair Hfa Inhaler (Albuterol Sulfate) 8.5 Gm Hfa.aer.ad 2 Puff IH PRN Q4-6HRS PRN 21 04/16/21 Reported Advair 100-50 Diskus (Fluticasone/Salmeterol) 1 Each Disk.w.dev 1 Puff IH BID 04/16/21 Reported Comments Impression . IMPRESSION: 1. Acute hypoxic respiratory failure, multifactorial/COVID-19 viral pneumonia/ARDS, ongoing, intubated 04/25/2021, now status post tracheostomy 05/15/[address] chest with bilateral diffuse interstitial infiltrates without any significant pleural effusion 3. Leukocytosis, sepsis--improved 4. Non-ST segment elevation CT 5. History of tobacco use, suspect COPD, unknown FEV1 6. Chronic kidney disease.== Neph neurology following, hemodialysis 7. Metabolic acidosis multifactorial 8. Abnormal chest x-ray 9. Hypoglycemia, continue to monitor--- resolved 10. Hypotension, suspect volume deficit,/possible sepsis--- resolved 11. Fever--improved 12. Anemia--improved Plan . Updated 05/17/21 Continue current vent support 20/500/40%/5 trach care DC sedation, precedex gtt may remain, once awake proceed with PS trial Follow ABG/CXR--changes as needed Follow ID recs for ABX --continue meropenem and Zyvox Trach care daily and as needed Follow surgery recommendations S/P 05/15/2021 Follow nephrology recs-- HD on hold, last HD was friday Monitor hemoglobin--stable-- monitor with restart DVT PPX Follow Cardiology recs--preserved LV function, hypertension, cardene gtt Continue TF for nutritional support DVT/GI PPX:restart sq heparin-- monitor D/W RN and RT Pt. is DNR Social work for DC planning LTACH, planned to DC to [facility] on jimena cct 30 min Updated 05/16/21 Continue current vent support 20/500/40%/5 Will reduce sedation, and start with pressure support trials in the morning Follow ABG/CXR--changes as needed Follow ID recs for ABX --continue meropenem and Zyvox Trach care daily and as needed Follow surgery recommendations plan for tracheostomy 05/15/2021 Follow nephrology recs-- HD Monitor hemoglobin--stable Follow Cardiology recs--preserved LV function, hypertension, cardene gtt Continue TF for nutritional support DVT/GI PPX:no AC 2/2 anemia D/W RN and RT Pt. is DNR Social work for DC planning LTACH cct 30 min Updated 05/15/21 Continue current vent support 20/500/40%/5 Follow ABG/CXR--changes as needed Follow ID recs for ABX --Continue cefepime, Zyvox Follow surgery recommendations plan for tracheostomy 05/15/2021 Follow nephrology recs-- HD --hemodialysis, Monitor hemoglobin Follow Cardiology recs--preserved LV function, hypertension, back on cardene gtt Continue TF for nutritional support --on hold for procedure DVT/GI PPX:no AC 2/2 anemia D/W RN and RT Pt. is DNR Addendum;. Patient was reevaluated after tracheostomy. No initial complications. No bleeding. We will keep him sedated for next 24 hours and restart weaning process from tomorrow. cct 30 min JONES FISHMAN MD 05/17/21 1610: ANGELLA JUAREZ APRN May 17, 2021 11:11 JONES FISHMAN MD May 17, 2021 16:10
--- NOTE | 2021-05-17 11:50 | PDOC ---
[employer] PROGRESS NOTE Date of Service DOS: DATE: 05/17/21 TIME: 11:49 Chief Complaint Chief Complaint Respiratory failure requiring intubation COVID-19 Acute HI A. fib SIRS Hypertension with hypertensive urgency Hyperlipidemia CKD Diabetes History of bilateral subclavian stenosis History of marijuana use Severe protein calorie malnutrition Trach placed on May 15 History of Present Illness History of Present Illness 05/17/21 Patient seen and examined at bedside. Attempting to wean sedation. Patient with some diarrhea. Per infectious disease will give erythromycin eye ointment for eye lesions. Nephro and pulm also following. Continue sedation weaning, plan of care discussed with bedside nurse. 05/16/21 Patient seen and examined at bedside. Underwent tracheostomy yesterday today tolerated well. When seen this morning patient is still notably sedated respiratory status is stable. Continue antibiotics and supportive measures. Plan of care discussed with bedside nurse. Attempt to wean sedation. 05/15/21 Patient seen and examined at bedside Remains intubated and sedated planning for tracheostomy today Continue current respiratory support; continue antibiotics, continue sedation Follow recommendations of pulmonary, renal, and infectious disease Plan of care discussed with bedside nurse Will follow up with patient after surgery today 05/14/21 Patient seen and examined at bedside Remains intubated and sedated planning for tracheostomy tomorrow Continue current respiratory support; continue antibiotics, continue sedation Follow recommendations of pulmonary, renal, and infectious disease Plan of care discussed with bedside nurse 05/13/2021 did not tolerate sedation vacation 05/11/2021, profoundly hypertensive ABG/CXR--changes as needed Continue iv cefepime , add zyvox, sputum culture VENT [id number]%, 5 of PEEP Mild pulmonary edema with new small right pleural effusion and basilar opacities now on cardene gtt prn Patient seen and examined in the [facility] ICU remains mechanically ventilated ILDA on CKD - ATN 2/2 sepsis/ Hypotension,UOP good,on IV Lasix ; requiring dialysis, Sedated with propofol Dex and fentanyl Chart reviewed Discussed with RN He remains critically ill intubated/sedated cont cardene gtt not able to tolerate PS trial 05/06/21 Change central line and send cath tip for cultures. 05-09 C. difficile PCR ADELSO AVILA MD ORDERED: BCULT Procedure Result BLOOD CULTURE Final NO GROWTH AFTER 5 DAYS JONES FISHMAN MD, CHRISTOPHER S MD BLOOD CULTURE Preliminary NO GROWTH AFTER 4 DAYS 37 min cc time 05/12/2021 Continue iv cefepime , add zyvox, sputum culture VENT [id number]%, 5 of PEEP Mild pulmonary edema with new small right pleural effusion and basilar opacities now on cardene gtt prn Patient seen and examined in the [facility] [facility] [address] ICU remains mechanically ventilated ILDA on CKD - ATN 2/2 sepsis/ Hypotension,UOP good,on IV Lasix ; requiring dialysis, Sedated with propofol Dex and fentanyl Chart reviewed Discussed with RN He remains critically ill intubated/sedated cont cardene gtt not able to tolerate PS trial 05/06/21 Change central line and send cath tip for cultures. 05-09 C. difficile PCR JONES FISHMAN MD, CHRISTOPHER S MD SISILLO, SABATO MD ORDERED: BCULT Procedure Result BLOOD CULTURE Preliminary NO GROWTH AFTER 2 DAYS BLOOD CULTURE Preliminary NO GROWTH AFTER 4 DAYS 33 min cc time 05/11/2021 Continue iv cefepime , add zyvox, sputum culture VENT %, 5 of PEEP Mild pulmonary edema with new small right pleural effusion and basilar opacities now on cardene gtt prn Patient seen and examined in the [facility] [address] ICU remains mechanically ventilated ILDA on CKD - ATN 2/2 sepsis/ Hypotension,UOP good,on IV Lasix ; requiring dialysis, Sedated with propofol Dex and fentanyl Chart reviewed Discussed with RN He remains critically ill intubated/sedated cont cardene gtt not able to tolerate PS trial 05/06/21 Change central line and send cath tip for cultures. 05-09 C. difficile PCR JONES FISHMAN MD,ADELSO DASILVA MD, MD ORDERED: BCULT Procedure Result BLOOD CULTURE Preliminary NO GROWTH AFTER 2 DAYS BLOOD CULTURE Preliminary NO GROWTH AFTER 4 DAYS 36 min cc time 05/10/2021 VENT [id number]%, 5 of PEEP Mild pulmonary edema with new small right pleural effusion and basilar opacities now on cardene gtt prn [facility] ILDA on CKD - ATN 2/2 sepsis/ Hypotension,UOP good,on IV Lasix ; requiring dialysis, Sedated with propofol Dex and fentanyl Chart reviewed Discussed with RN He remains critically ill intubated/sedated cont cardene gtt not able to tolerate PS trial 05/06/21 Change central line and send cath tip for cultures. 05-09 C. difficile PCR JONES FISHMAN MD, CHRISTOPHER S MD SISILLO, SABATO MD ORDERED: BCULT Procedure Result BLOOD CULTURE Preliminary NO GROWTH AFTER 2 DAYS BLOOD CULTURE Preliminary NO GROWTH AFTER 4 DAYS 33 min cc time 05/09/2021 VENT [id number]%, 5 of PEEP Mild pulmonary edema with new small right pleural effusion and basilar opacities now on cardene gtt prn Patient seen and examined in the [facility] [facility] [address] ICU remains mechanically ventilated ILDA on CKD - ATN 2/2 sepsis/ Hypotension,UOP good,on IV Lasix ; requiring dialysis, Sedated with propofol Dex and fentanyl Chart reviewed Discussed with RN He remains critically ill intubated/sedated cont cardene gtt not able to tolerate PS trial 05/06/21 Change central line and send cath tip for cultures. 05-09 C. difficile PCR JONES FISHMAN MD,ADELSO DASILVA MD, MD ORDERED: BCULT Procedure Result BLOOD CULTURE Preliminary NO GROWTH AFTER 2 DAYS BLOOD CULTURE Preliminary NO GROWTH AFTER 4 DAYS 37 min cc time 05/08/2021 Currently on 40%, 5 of PEEP now on cardene gtt Patient seen and examined in the [facility] ICU remains mechanically ventilated ILDA on CKD - ATN 2/2 sepsis/ Hypotension,UOP good,on IV Lasix ; requiring dialysis, AC/20/500/40 percent with 5 of PEEP Sedated with propofol Dex and fentanyl Chart reviewed Discussed with RN He remains critically ill intubated/sedated cont cardene gtt not able to tolerate PS trial 05/06/21 JONES FISHMAN MD,ADELSO DASILVA MD, MD ORDERED: BCULT Procedure Result BLOOD CULTURE Preliminary NO GROWTH AFTER 2 DAYS BLOOD CULTURE Preliminary NO GROWTH AFTER 4 DAYS 33 min cc time 05/07/2021 Patient seen and examined in the [facility] [address] ICU He remains mechanically ventilated ILDA on CKD - ATN 2/2 sepsis/ Hypotension,UOP good,on IV Lasix ; requiring dialysis, AC/20/500/40 percent with 5 of PEEP Sedated with propofol Dex and fentanyl Chart reviewed Discussed with RN He remains critically ill intubated/sedated cont cardene gtt not able to tolerate PS trial 05/06/21 JONES FISHMAN MD,ADELSO DASILVA MD, MD ORDERED: BCULT Procedure Result BLOOD CULTURE Preliminary NO GROWTH AFTER 2 DAYS 36 min cc time 05/06/2021 Patient seen and examined in the [facility] [address] ICU He remains mechanically ventilated AC/20/500/40 percent with 5 of PEEP Sedated with propofol Dex and fentanyl Chart reviewed Discussed with RN He remains critically ill 05/05/2020 Patient seen and examined in the [facility] [address] ICU He remains on the vent AC/20/500/40 percent with 5 of PEEP Discussed with RN Chart reviewed Has SCDs in place Nieves to bedside drainage He remains critically ill 05/04/2021 Patient seen and examined in the [facility] [address] ICU Still intubated Sedated with propofol and fentanyl AC/20/500/70 percent with 5 of PEEP On dialysis currently Has SCDs in Nieves to bedside drainage Discussed with RN Chart reviewed 05/03/2021 Patient seen and examined in the [facility] [address] ICU He is still intubated AC/20/500/70 percent with 5 of PEEP Has SCDs in place Nieves to bedside drainage Sedated with fentanyl Versed and propofol Discussed are Chart reviewed Remains critically ill 05/02/2021 Patient seen and examined in the [facility] [address] ICU He is sedated with propofol fentanyl and Versed Ventilator settings as follow AC/20/500/40 percent with 5 of PEEP Has Nieves to bedside drainage Chart reviewed Discussed with RN He remains critically ill 05/01/2021 Patient seen and examined in the [facility] [address] ICU He is still intubated AC/20/500/40 percent with 5 of PEEP In A. fib Sedated with propofol fentanyl and Versed Has a heparin drip Missy with RN Chart reviewed He remains critically 04/30/2020 Patient seen and examined in the [facility] [address] ICU He remains on the vent AC/20/500/40 5% with 5 PEEP Currently on dialysis Has OG feeds running Has a Nieves to bedside drainage Sedated with propofol and fentanyl Reviewed chart Discussed with RN He remains critically ill Mr Cunha is a 75 yo male w/ PMHx CAD, HTN, Hyperlipidemia, subclavian steel syndrome, subclavian stenosis s/p left subclavian sent placement complicated by retroperitoneal hematoma s/p evacuation in 08/2015), asthma, BART, CKD, DM2 who presented from home with home health care noted that he was short of breath and valverde with O2 saturations less than 89% as low as 84% not improved with nasal cannulated oxygen placed on CPAP and brought to ED for further care. He was just discharged from the hospital a week ago on April 19, 2021 for abdominal pain and was going for further cardiac testing with outpatient stress testing scheduled on May 28, 2021. Had echocardiogram April 17, 2021 with normal-appearing EF with moderate concentric LVH no significant valvular abnormalities. WBC 20, Hb 10.7, platelets 268, NA 140, K3.8, BUN 21, CR 2.9, glucose 162, albumin 3, troponin I 1.372, NT proBNP 33,318. EKG appears sinus tachycardia rate of 105 bpm with multiple PACs small ST depressions in lead II and V5. TWI in V6. Chest radiograph with diffuse interstitial and alveolar opacities and ET tube 5.8 cm above the leilani. Due to worsening respiratory status ED physician elected to intubate patient. Seen postintubation. Blood pressure little low after propofol bolus, but improved. Significant white frothy sputum per ET tube. Admitted to ICU for further care 04/29/2021: Afebrile, remains on vent at FiO2 45%, PEEP 5. WBC 20.4. Hemodialysis per nephrology. We will continue treatment with empiric antibiotics, remdesivir, and steroids. Continue heparin infusion and supportive care. Critical care time 30 minutes reviewing chart, review labs, review imaging, discussion with RN. 04/28/2021: Afebrile. FiO2 50%, PEEP 5. Nontunneled HD catheter placed yesterday due to worsening kidney function; eGFR 16 (CKD4). Chest x-ray showed unchanged interstitial opacities. Continue empiric antibiotics, steroids, and remdesivir. Continue heparin infusion, and continue to follow cardiology recommendations on new diagnosis of A. fib. Critical care time 30 minutes reviewing chart, review labs, review imaging, discussion with RN. 04/27/2021: Afebrile. On vent with FiO2 50%, PEEP 5. Troponin 2.8 yesterday; probable type II, demand ischemia. New onset A. fib. Continue heparin drip and as needed digoxin, per cardiology. Continue treatment with remdesivir, steroids, and prophylactic antibiotics. CBG 323 this morning; will add basal insulin. Critical care 30 minutes spent reviewing labs, reviewing imaging, reviewing charts, and discussion with RN. 04/26/2021: COVID-19 positive. Febrile overnight that was managed with cooling blankets. On vent with FiO2 50%, PEEP 5. Per cardiology, elevated troponins likely secondary to demand ischemia; continue heparin drip per cardiology. Maintain fluid balance and avoid nephrotoxins. Continue treatment with r emdesivir, steroids, and prophylactic antibiotics. 30 minutes critical care time spent reviewing charts, reviewing labs, reviewing imaging, and discussion with RN. 04/25/2021: On vent FiO2 50, PEEP 5. Febrile, T-max 103.3. Patient was initiated on cooling blankets. Procalcitonin 0.13. Continue coverage for hospital-acquired pneumonia with cefepime. MRSA PCR pending. Critical care time 30 minutes spent reviewing charts, reviewing labs, review of imaging, discussion with RN. Vitals/I&O Vitals/I&O: Vital Signs Date Time Temp Pulse Resp B/P (MAP) Pulse Ox O2 Delivery O2 Flow Rate FiO2 05/17/21 11:43 100 Ventilator 05/17/21 11:08 91 140/56 05/17/21 10:55 20 05/17/21 08:00 99.1 99.1 I & O 05/16/21 05/16/21 05/17/21 15:00 23:00 07:00 Intake Total 520 ml 2934.74 ml 1090 ml Output Total 525 ml 1090 ml 560 ml Balance -5 ml 1844.74 ml 530 ml Physical Exam Physical Exam: GENERAL: Well-developed and well-nourished male, intubated, sedated. HEENT: Normocephalic, atraumatic, redness and erythema of both eyes left greater than right ETT and OGT present. NECK: right dialysis catheter present clean,central line changed ( 05/11) HEART: S1, S2. LUNGS: Decreased breath sounds. ABDOMEN: Soft, obese, bowel sounds present. GENITOURINARY: Nieves in place. EXTREMITIES: Edema present. DERMATOLOGIC: Warm, dry, no generalized rash. NEUROLOGIC: Intubated. PICC line clean General: No acute distress, Other (Sedated) Heart: Regular rate, Normal S1, Normal S2 Lungs: Clear, Other Abdomen: Normal bowel sounds, Other (ND) Extremities: No clubbing, No cyanosis, Other (Lower extremity edema) Skin: No rashes, No breakdown, No significant lesion Labs Labs: Laboratory Tests Test 05/16/21 16:50 05/16/21 17:51 05/17/21 00:39 05/17/21 07:00 Potassium Level 3.4 mmol/L (3.5-5.1) 4.0 mmol/L (3.5-5.1) Magnesium Level 1.8 mg/dL (1.8-2.4) 2.1 mg/dL (1.8-2.4) Glucose (Fingerstick) 149 mg/dL (70-99) 167 mg/dL (70-99) 120 mg/dL (70-99) Sodium Level 129 mmol/L (136-145) Chloride Level 95 mmol/L (98-107) Carbon Dioxide Level 26 mmol/L (21-32) Anion Gap 8 (6-14) Blood Urea Nitrogen 37 mg/dL (8-26) Creatinine 3.0 mg/dL (0.7-1.3) Estimated GFR (Cockcroft-Gault) 24.9 Glucose Level 127 mg/dL (70-99) Calcium Level 8.5 mg/dL (8.5-10.1) Phosphorus Level 4.2 mg/dL (2.6-4.7) Test 05/17/21 07:30 O2 Saturation 92 % (92-99) Arterial Blood pH 7.43 (7.35-7.45) Arterial Blood pCO2 at Patient Temp 34 mmHg (35-46) Arterial Blood pO2 at Patient Temp 66 mmHg (65-108) Arterial Blood HCO3 22 mmol/L (21-28) Arterial Blood Base Excess -2 mmol/L (-3-3) FiO2 40/vent Review of Systems Review of Systems: Cannot obtain Assessment and Plan Assessmemt and Plan Problems Medical Problems: (1) Elevated troponin Status: Acute (2) Person under investigation for COVID-19 Status: Acute (3) Pulmonary edema Status: Acute Comment Review of Relevant I have reviewed the following items juanita (where applicable) has been applied. Medications: Current Medications Medications (Trade) Dose Ordered Sig/Jodie Route PRN Reason Start Time Stop Time Status Last Admin Dose Admin Meropenem 500 mg/ Sodium Chloride 50 ml @ 100 mls/hr Q12HR IV 05/16/21 21:00 05/17/21 08:01 Nystatin (Nystop) 1 danielito BID TP 05/16/21 21:00 05/17/21 09:22 Potassium Bicarbonate (Potassium Effervescent Tablet) 40 meq Q4H PO 05/16/21 18:00 05/16/21 22:01 DC 8/11/21 21:24 Magnesium Sulfate 50 ml @ 25 mls/hr 1X ONCE IV 05/16/21 18:00 05/16/21 19:59 DC 05/16/21 18:12 Sodium Chloride 1,000 ml @ 100 mls/hr Q10H IV 05/17/21 09:45 05/17/21 11:05 Justifications for Admission General Conditions Altered mental status?: Yes Justification of admission: Patient has tachycardia (> 100 beats per minute) or hypotension (SBP < 90 mm Hg) leading to inadequate systemic perfusion as indicated by severe/persistent altered mental status. Other Justification BRIAN ERNST MD May 17, 2021 11:50
[2021-05-17] MEDS: LABETALOL 20 MG/4 ML DISP.SYRIN. IVP PRN (12:10)
--- NOTE | 2021-05-17 15:28 | NUR ---
SS following up with discharge planning. SS reviewed pt chart and discussed with pt RN. Pt is currently on the vent at 40%. COVID19 positive. Pt on IV Meropenem and IV Zyvox. Wound care following. GI consulted for PEG tube. Pt on Cardene and Precedex. Pt accepted at [facility], ; fax [phone], for LTACH. Pt needing insurance approval for [facility]. Pt [facility] insurance has / rule of 21 days on the vent and 7 days on the trach prior to insurance approval. SS phoned and faxed clinical updates to [facility]. SS will continue to follow for discharge planning.
[2021-05-17] MEDS: ERYTHROMYCIN 0.5% OPHTH OINTMENT 1GM TUBE. OU SCH ×2 (16:04→20:55)
[2021-05-17] MEDS: fentaNYL PF VIAL 100 MCG/2 ML VIAL IV PRN (16:12)
--- NOTE | 2021-05-17 16:17 | PDOC2 ---
GI CONSULT Date of Service: DATE: 05/17/21 TIME: 16:03 Reason For Consult: needs PEG HPI: HPI: 75 y/o male admitted 04/24/21 w/ resp failure/COVID-19 infection. Additionally, issues w/ CHF, NSTEMI, A Fib, and ILDA. Now s/p tracheostomy. Tube feeds prior to trach noted w/ regurg. Currently rate 20cc/hr - no regurg. We saw last month for upper abd pain, vomiting, and irregular bowel habits. Also noted w/ ACD/JENN. At that time reported h/o GERD and normal colonoscopy in the past. Imaging then noted cholelithaisis and HIDA was not suggestive of cholecystitis. We recommended PPI, Miralax, and follow-up for outpt scopes. H/o umbilical hernia. PMH: PMH: CAD, HTN, HLD, COPD, DM, CKD, OA, gout, anemia, chronic back pain subclavian stenosis s/p stent w/ complication of retroperitoneal hematoma s/p evacuation FH: Family History: No pertinent hx Social History: Smoke: Quit ALCOHOL: other (heavy in past) Drugs: Marijuana ROS: unable to obtain Vitals: Vitals: Vital Signs Date Time Temp Pulse Resp B/P (MAP) Pulse Ox O2 Delivery O2 Flow Rate FiO2 05/17/21 15:37 98 Ventilator 05/17/21 13:56 68 158/63 05/17/21 13:00 23 05/17/21 12:00 98.4 98.4 Labs: Labs: Laboratory Tests Test 05/16/21 16:50 05/16/21 17:51 05/17/21 00:39 05/17/21 07:00 Potassium Level 3.4 mmol/L (3.5-5.1) 4.0 mmol/L (3.5-5.1) Magnesium Level 1.8 mg/dL (1.8-2.4) 2.1 mg/dL (1.8-2.4) Glucose (Fingerstick) 149 mg/dL (70-99) 167 mg/dL (70-99) 120 mg/dL (70-99) Sodium Level 129 mmol/L (136-145) Chloride Level 95 mmol/L (98-107) Carbon Dioxide Level 26 mmol/L (21-32) Anion Gap 8 (6-14) Blood Urea Nitrogen 37 mg/dL (8-26) Creatinine 3.0 mg/dL (0.7-1.3) Estimated GFR (Cockcroft-Gault) 24.9 Glucose Level 127 mg/dL (70-99) Calcium Level 8.5 mg/dL (8.5-10.1) Phosphorus Level 4.2 mg/dL (2.6-4.7) Test 05/17/21 07:30 05/17/21 12:12 O2 Saturation 92 % (92-99) Arterial Blood pH 7.43 (7.35-7.45) Arterial Blood pCO2 at Patient Temp 34 mmHg (35-46) Arterial Blood pO2 at Patient Temp 66 mmHg (65-108) Arterial Blood HCO3 22 mmol/L (21-28) Arterial Blood Base Excess -2 mmol/L (-3-3) FiO2 40/vent Glucose (Fingerstick) 186 mg/dL (70-99) Allergies: Coded Allergies: Penicillins (Verified Allergy, Intermediate, 04/16/21) morphine (Verified Allergy, Intermediate, 04/16/21) itches real bad all over Medications: Current Medications Medications (Trade) Dose Ordered Sig/Jodie Route PRN Reason Start Time Stop Time Status Last Admin Dose Admin Meropenem 500 mg/ Sodium Chloride 50 ml @ 100 mls/hr Q12HR IV 05/16/21 21:00 05/17/21 08:01 Nystatin (Nystop) 1 danielito BID TP 05/16/21 21:00 05/17/21 09:22 Potassium Bicarbonate (Potassium Effervescent Tablet) 40 meq Q4H PO 05/16/21 18:00 05/16/21 22:01 DC 05/16/21 21:24 Magnesium Sulfate 50 ml @ 25 mls/hr 1X ONCE IV 05/16/21 18:00 05/16/21 19:59 DC 05/16/21 18:12 Sodium Chloride 1,000 ml @ 100 mls/hr Q10H IV 05/17/21 09:45 05/17/21 11:05 Imaging: Imaging: KUB IMPRESSION: Enteric tube tip is in the distal stomach. CXR IMPRESSION: Support lines and tubes are grossly stable in position. Heart is not enlarged. Mediastinal and hilar contours are stable. Bilateral parenchymal airspace opacities are grossly stable. Small pleural effusions. No pneumothorax. PE: GEN: chronically ill HEENT: trach/vent LUNGS: coarse HEART: RR ABD: large/round, quiet, hernia uncomfortable (as in the past) EXTREMITY: No edema SKIN: No rashes, no jaundice NEURO/PSYCH: eyes open and grimaces w/ palpation of abdomen, not communicative otherwise A/P: A/P: COVID-19/resp failure, s/p tracheostomy A Fib, NSTEMI, CHF, ILDA ACD/JENN H/o GERD and constipation - nursing reports had a "blow out" CRC screen - reportedly normal in past Cholelithiasis -- Issues w/ regurg of tube feeds with increased rate - not apparent so far after tracheostomy but rate only 20cc. Would attempt to advance rate and observe for regurg before considering PEG placement. Will check INR in interim. Agree w/ PPI. TAIWO THEODORE May 17, 2021 16:17
[2021-05-17 18:54] LABS: PROTHROMBIN TIME PATIENT 13.3 SEC (11.7-14.0)
[2021-05-17] MEDS: MONTELUKAST SODIUM 10 MG TABLET. PO SCH (20:52)
[2021-05-17] MEDS: ATORVASTATIN CALCIUM 40 MG TABLET. PO SCH (20:56)
[2021-05-17] MEDS: INSULIN GLARGINE SYRINGE. SQ SCH (20:57)
[2021-05-18] VITALS (27 sets, daily range): BP systolic 110–190; BP diastolic 57–89
[2021-05-18] MEDS: DEXMEDETOMIDINE 400 MCG in IV NORMAL SALINE 100ML 96 ML IV PRN ×6 (01:58→23:55)
[2021-05-18] MEDS: INSULIN LISPRO 300 UNITS/3 ML VIAL. SQ SCH ×4 (05:20→23:49)
[2021-05-18] MEDS: METOPROLOL IV PUSH 5 MG/5 ML VIAL. IVP SCH ×4 (05:20→23:47)
[2021-05-18] MEDS: IV NORMAL SALINE 1000ML BAG 1,000 ML IV SCH ×2 (05:36→16:12)
--- NOTE | 2021-05-18 05:42 | RAD ---
Study: XR CHEST 1V Indication: Respiratory failure. Comparison: 05/13/2021 Findings: Central venous catheters terminating within the SVC. Tracheostomy tube with the tip 4 cm above the ca lowell. Enteric tube extends beyond the inferior field of view. Airspace opacification mainly at the lower half of both lungs and small left larger than right pleura l effusions. The cardiomediastinal silhouette appears enlarged but accentuated by technique. Unchange d hilar prominence. No pneumothorax. Impression: 1. Unchanged support device positioning, as above. 2. Persistence of small left larger than right pleural effusions and basilar predominant airspace opa cification. Electronically signed by: MIKE PRIETO MD (05/18/2021 5:39 AM) [facility]
[2021-05-18 05:59] LABS: CALCIUM 8.8 mg/dL (8.5-10.1); CREATININE 2.9 mg/dL (0.7-1.3); GFR 25.9; MAGNESIUM 2.1 mg/dL (1.8-2.4); PHOSPHORUS 4.4 mg/dL (2.6-4.7); POTASSIUM 3.5 mmol/L (3.5-5.1)
[2021-05-18] MEDS: ASPIRIN CHEWABLE 81 MG TABLET. PO SCH (07:56)
[2021-05-18] MEDS: PANTOPRAZOLE IV PUSH 40 MG VIAL. IVP SCH (07:56)
[2021-05-18 08:07] LABS: BASE EXCESS ABG 1 mmol/L (-3-3); HCO3 ABG 24 mmol/L (21-28); PCO2 ABG 36 mmHg (35-46); PO2 ABG 67 mmHg (65-108); SAT O2 ABG 93 % (92-99)
[2021-05-18 08:11] LABS: FIO2 ABG 40
--- NOTE | 2021-05-18 08:19 | PDOC ---
Infectious Disease Note Subjective: Subjective Intubated Awaiting weaning trial Vital Signs: Vital Signs Vital Signs Date Time Temp Pulse Resp B/P (MAP) Pulse Ox O2 Delivery O2 Flow Rate FiO2 05/18/21 07:11 100 Ventilator 05/18/21 07:00 58 20 171/73 (105) 05/18/21 04:00 97.0 97.0 Physical Exam: PHYSICAL EXAM GENERAL: Well-developed and well-nourished male, intubated, sedated. HEENT: Normocephalic, atraumatic, redness and erythema of both eyes left greater than right ETT and OGT present. NECK: right dialysis catheter present clean,central line changed ( 05/11) HEART: S1, S2. LUNGS: Decreased breath sounds. ABDOMEN: Soft, obese, bowel sounds present. GENITOURINARY: Nieves in place. EXTREMITIES: Edema present. DERMATOLOGIC: Warm, dry, no generalized rash. NEUROLOGIC: Intubated. PICC line clean Medications: Inpatient Meds: Medications reviewed. Labs: Lab Laboratory Tests Test 05/17/21 12:12 05/17/21 17:56 05/17/21 18:30 05/18/21 05:15 Glucose (Fingerstick) 186 mg/dL (70-99) 192 mg/dL (70-99) Prothrombin Time 13.3 SEC (11.7-14.0) Prothromb Time International Ratio 1.0 (0.8-1.1) Sodium Level 130 mmol/L (136-145) Potassium Level 3.5 mmol/L (3.5-5.1) Chloride Level 97 mmol/L (98-107) Carbon Dioxide Level 25 mmol/L (21-32) Anion Gap 8 (6-14) Blood Urea Nitrogen 36 mg/dL (8-26) Creatinine 2.9 mg/dL (0.7-1.3) Estimated GFR (Cockcroft-Gault) 25.9 Glucose Level 144 mg/dL (70-99) Calcium Level 8.8 mg/dL (8.5-10.1) Phosphorus Level 4.4 mg/dL (2.6-4.7) Magnesium Level 2.1 mg/dL (1.8-2.4) Test 05/18/21 05:19 05/18/21 07:18 Glucose (Fingerstick) 135 mg/dL (70-99) O2 Saturation 93 % (92-99) Arterial Blood pH 7.45 (7.35-7.45) Arterial Blood pCO2 at Patient Temp 36 mmHg (35-46) Arterial Blood pO2 at Patient Temp 67 mmHg (65-108) Arterial Blood HCO3 24 mmol/L (21-28) Arterial Blood Base Excess 1 mmol/L (-3-3) FiO2 40 Objective: Assessment: 1. Febrile illness could be healthcare-associated infection,resolved 2. Leukocytosis, on steroids. 3. COVID-19 pneumonia. 4. Acute hypoxic respiratory failure status post intubation. 5. Congestive heart failure, acute on chronic. 6. Acute kidney injury on chronic kidney disease on hemodialysis. 7. Diabetes mellitus 2. 8. Atrial fibrillation. 9. Anemia. 10. Protein-calorie malnutrition. 11. Hypertention 12.Hyponatremia Plan: Plan of Care 1. Continue Meropenem renal dosing as needed,pharmacy to assist DC Zyvox 2. Follow-up labs and cultures 3. Central line changed on 05/11 4. C. difficile PCR negative 5. Continue supportive care. 6. Critically ill. Local eye care erythromycin eye ointment Discussed with nursing staff ALAYNA RIVERO MD May 18, 2021 08:19
[2021-05-18 08:48] LABS: BASO # 0.1 x10^3/uL (0.0-0.2); BASO % 1 % (0-3); EOS # 0.2 x10^3/uL (0.0-0.7); EOS % 2 % (0-3); HEMATOCRIT 26.8 % (39.0-53.0); HEMOGLOBIN 8.8 g/dL (13.0-17.5); LYMPH # 2.5 x10^3/uL (1.0-4.8); LYMPH % 19 % (24-48); MEAN CORPUSCULAR HEMOGLOBIN 27 pg (25-35); MEAN CORPUSCULAR HGB CONC 33 g/dL (31-37); MEAN CORPUSCULAR VOLUME 82 fL (79-100); MONO # 1.2 x10^3/uL (0.0-1.1); MONO % 9 % (0-9); NEUT # 8.9 x10^3/uL (1.8-7.7); NEUT % 69 % (31-73); PLATELET COUNT 190 x10^3/uL (140-400); RED BLOOD COUNT 3.27 x10^6/uL (4.30-5.70); RED CELL DISTRIBUTION WIDTH 16.6 % (11.5-14.5); WHITE BLOOD COUNT 12.9 x10^3/uL (4.0-11.0)
[2021-05-18] MEDS: MEROPENEM 500 MG in IV NORMAL SALINE 50ML 50 ML IV SCH ×2 (09:25→20:51)
[2021-05-18] MEDS: ERYTHROMYCIN 0.5% OPHTH OINTMENT 1GM TUBE. OU SCH ×2 (09:26→20:51)
[2021-05-18] MEDS: hydrALAZINE 25 MG TABLET PO SCH ×4 (09:26→20:50)
[2021-05-18] MEDS: AMIODARONE HCL 200 MG TABLET. PO SCH (09:27)
[2021-05-18] MEDS: NYSTATIN TOPICAL POWDER 15GM BOTTLE. TP SCH ×2 (09:27→20:51)
--- NOTE | 2021-05-18 09:51 | PDOC ---
PULMONARY PROGRESS NOTES DATE: 05/18/21 TIME: 09:48 Subjective Remains on ventilatory support 40%/peep of 5 no overnight concerns from nursing Vitals Vital Signs Date Time Temp Pulse Resp B/P (MAP) Pulse Ox O2 Delivery O2 Flow Rate FiO2 05/18/21 09:27 108 155/92 05/18/21 07:11 100 Ventilator 05/18/21 07:00 20 05/18/21 04:00 97.0 97.0 Comments Unable to report review of systems trach HEENT: Other (Trachea midline) Lungs: Clear, Other Cardiovascular: S1, S2 Abdomen: Soft Labs Laboratory Tests Test 05/16/21 11:48 05/16/21 16:50 05/16/21 17:51 05/17/21 00:39 Glucose (Fingerstick) 185 mg/dL (70-99) 149 mg/dL (70-99) 167 mg/dL (70-99) Potassium Level 3.4 mmol/L (3.5-5.1) Magnesium Level 1.8 mg/dL (1.8-2.4) Test 05/17/21 07:00 05/17/21 07:30 05/17/21 12:12 05/17/21 17:56 Sodium Level 129 mmol/L (136-145) Potassium Level 4.0 mmol/L (3.5-5.1) Chloride Level 95 mmol/L (98-107) Carbon Dioxide Level 26 mmol/L (21-32) Anion Gap 8 (6-14) Blood Urea Nitrogen 37 mg/dL (8-26) Creatinine 3.0 mg/dL (0.7-1.3) Estimated GFR (Cockcroft-Gault) 24.9 Glucose Level 127 mg/dL (70-99) Glucose (Fingerstick) 120 mg/dL (70-99) 186 mg/dL (70-99) 192 mg/dL (70-99) Calcium Level 8.5 mg/dL (8.5-10.1) Phosphorus Level 4.2 mg/dL (2.6-4.7) Magnesium Level 2.1 mg/dL (1.8-2.4) O2 Saturation 92 % (92-99) Arterial Blood pH 7.43 (7.35-7.45) Arterial Blood pCO2 at Patient Temp 34 mmHg (35-46) Arterial Blood pO2 at Patient Temp 66 mmHg (65-108) Arterial Blood HCO3 22 mmol/L (21-28) Arterial Blood Base Excess -2 mmol/L (-3-3) FiO2 40/vent Test 05/17/21 18:30 05/18/21 05:15 05/18/21 05:19 05/18/21 07:18 Prothrombin Time 13.3 SEC (11.7-14.0) Prothromb Time International Ratio 1.0 (0.8-1.1) White Blood Count 12.9 x10^3/uL (4.0-11.0) Red Blood Count 3.27 x10^6/uL (4.30-5.70) Hemoglobin 8.8 g/dL (13.0-17.5) Hematocrit 26.8 % (39.0-53.0) Mean Corpuscular Volume 82 fL (79-100) Mean Corpuscular Hemoglobin 27 pg (25-35) Mean Corpuscular Hemoglobin Concent 33 g/dL (31-37) Red Cell Distribution Width 16.6 % (11.5-14.5) Platelet Count 190 x10^3/uL (140-400) Neutrophils (%) (Auto) 69 % (31-73) Lymphocytes (%) (Auto) 19 % (24-48) Monocytes (%) (Auto) 9 % (0-9) Eosinophils (%) (Auto) 2 % (0-3) Basophils (%) (Auto) 1 % (0-3) Neutrophils # (Auto) 8.9 x10^3/uL (1.8-7.7) Lymphocytes # (Auto) 2.5 x10^3/uL (1.0-4.8) Monocytes # (Auto) 1.2 x10^3/uL (0.0-1.1) Eosinophils # (Auto) 0.2 x10^3/uL (0.0-0.7) Basophils # (Auto) 0.1 x10^3/uL (0.0-0.2) Sodium Level 130 mmol/L (136-145) Potassium Level 3.5 mmol/L (3.5-5.1) Chloride Level 97 mmol/L (98-107) Carbon Dioxide Level 25 mmol/L (21-32) Anion Gap 8 (6-14) Blood Urea Nitrogen 36 mg/dL (8-26) Creatinine 2.9 mg/dL (0.7-1.3) Estimated GFR (Cockcroft-Gault) 25.9 Glucose Level 144 mg/dL (70-99) Calcium Level 8.8 mg/dL (8.5-10.1) Phosphorus Level 4.4 mg/dL (2.6-4.7) Magnesium Level 2.1 mg/dL (1.8-2.4) Glucose (Fingerstick) 135 mg/dL (70-99) O2 Saturation 93 % (92-99) Arterial Blood pH 7.45 (7.35-7.45) Arterial Blood pCO2 at Patient Temp 36 mmHg (35-46) Arterial Blood pO2 at Patient Temp 67 mmHg (65-108) Arterial Blood HCO3 24 mmol/L (21-28) Arterial Blood Base Excess 1 mmol/L (-3-3) FiO2 40 Laboratory Tests Test 05/17/21 12:12 05/17/21 17:56 05/17/21 18:30 05/18/21 05:15 Glucose (Fingerstick) 186 mg/dL (70-99) 192 mg/dL (70-99) Prothrombin Time 13.3 SEC (11.7-14.0) Prothromb Time International Ratio 1.0 (0.8-1.1) White Blood Count 12.9 x10^3/uL (4.0-11.0) Red Blood Count 3.27 x10^6/uL (4.30-5.70) Hemoglobin 8.8 g/dL (13.0-17.5) Hematocrit 26.8 % (39.0-53.0) Mean Corpuscular Volume 82 fL (79-100) Mean Corpuscular Hemoglobin 27 pg (25-35) Mean Corpuscular Hemoglobin Concent 33 g/dL (31-37) Red Cell Distribution Width 16.6 % (11.5-14.5) Platelet Count 190 x10^3/uL (140-400) Neutrophils (%) (Auto) 69 % (31-73) Lymphocytes (%) (Auto) 19 % (24-48) Monocytes (%) (Auto) 9 % (0-9) Eosinophils (%) (Auto) 2 % (0-3) Basophils (%) (Auto) 1 % (0-3) Neutrophils # (Auto) 8.9 x10^3/uL (1.8-7.7) Lymphocytes # (Auto) 2.5 x10^3/uL (1.0-4.8) Monocytes # (Auto) 1.2 x10^3/uL (0.0-1.1) Eosinophils # (Auto) 0.2 x10^3/uL (0.0-0.7) Basophils # (Auto) 0.1 x10^3/uL (0.0-0.2) Sodium Level 130 mmol/L (136-145) Potassium Level 3.5 mmol/L (3.5-5.1) Chloride Level 97 mmol/L (98-107) Carbon Dioxide Level 25 mmol/L (21-32) Anion Gap 8 (6-14) Blood Urea Nitrogen 36 mg/dL (8-26) Creatinine 2.9 mg/dL (0.7-1.3) Estimated GFR (Cockcroft-Gault) 25.9 Glucose Level 144 mg/dL (70-99) Calcium Level 8.8 mg/dL (8.5-10.1) Phosphorus Level 4.4 mg/dL (2.6-4.7) Magnesium Level 2.1 mg/dL (1.8-2.4) Test 05/18/21 05:19 05/18/21 07:18 Glucose (Fingerstick) 135 mg/dL (70-99) O2 Saturation 93 % (92-99) Arterial Blood pH 7.45 (7.35-7.45) Arterial Blood pCO2 at Patient Temp 36 mmHg (35-46) Arterial Blood pO2 at Patient Temp 67 mmHg (65-108) Arterial Blood HCO3 24 mmol/L (21-28) Arterial Blood Base Excess 1 mmol/L (-3-3) FiO2 40 Medications Active Scripts Medications Dose Route/Sig Max Daily Dose Days Date Category Glyburide 2.5 Mg Tablet 1 Tab PO DAILY 04/19/21 Rx Polyethylene Glycol 3350 17 Gm Powd.pack 17 Gm PO DAILY 04/19/21 Rx Dok (Docusate Sodium) 100 Mg Capsule 100 Mg PO PRN DAILY PRN 30 04/19/21 Rx Bisacodyl 5 Mg Tablet.dr 5 Mg PO PRN DAILY PRN 04/19/21 Rx Acetaminophen 325 Mg Tablet 650 Mg PO PRN Q4HRS PRN 14 04/19/21 Rx Aspirin Ec (Aspirin) 81 Mg Tablet. 81 Mg PO DAILYWBKFT 30 04/19/21 Rx Hydralazine Hcl 25 Mg Tablet 25 Mg PO QID 30 04/19/21 Rx Fenofibrate 54 Mg Tablet 1 Tab PO DAILY 04/17/21 Reported Potassium Chloride (Potassium Chloride) 20 Meq Tablet.er 20 Meq PO DAILY 04/17/21 Reported Coreg (Carvedilol) 12.5 Mg Tablet 37.5 Mg PO BIDWMEALS 04/17/21 Reported Rosuvastatin Calcium 40 Mg Tablet 40 Mg PO QHS 04/17/21 Reported Gabapentin (Gabapentin) 100 Mg Capsule 200 Mg PO BID 04/17/21 Reported Montelukast Sodium Tablet (Montelukast Sodium) 10 Mg Tablet 10 Mg PO HS 04/17/21 Reported Protonix (Pantoprazole Sodium) 20 Mg Tablet. 2 Tab PO DAILY 04/17/21 Reported Amlodipine Besylate 5 Mg Tablet 5 Mg PO DAILY 04/17/21 Reported Furosemide 40 Mg Tablet 1 Tab PO DAILY 04/17/21 Reported Proair Hfa Inhaler (Albuterol Sulfate) 8.5 Gm Hfa.aer.ad 2 Puff IH PRN Q4-6HRS PRN 21 04/16/21 Reported Advair 100-50 Diskus (Fluticasone/Salmeterol) 1 Each Disk.w.dev 1 Puff IH BID 04/16/21 Reported Comments Impression . IMPRESSION: 1. Acute hypoxic respiratory failure, multifactorial/COVID-19 viral pneumonia/ARDS, ongoing, intubated 04/25/2021, now status post tracheostomy 05/15/[address] chest with bilateral diffuse interstitial infiltrates without any significant pleural effusion 3. Leukocytosis, sepsis--improved 4. Non-ST segment elevation VA 5. History of tobacco use, suspect COPD, unknown FEV1 6. Chronic kidney disease.== Neph neurology following, hemodialysis 7. Metabolic acidosis multifactorial 8. Abnormal chest x-ray 9. Hypoglycemia, continue to monitor--- resolved 10. Hypotension, suspect volume deficit,/possible sepsis--- resolved 11. Fever--improved 12. Anemia--improved Plan . Updated 05/18/21 Continue current vent support 20/500/40%/5 DC sedation, once awake proceed with PS trial Follow ABG/CXR--changes as needed Follow ID recs for ABX --continue meropenem Trach care daily and as needed Follow GI recs planned for PEG tube on friday Follow surgery recommendations S/P trach 05/15/2021 Follow nephrology recs-- HD on hold, Monitor hemoglobin--stable-- Follow Cardiology recs--preserved LV function, hypertension, Continue TF for nutritional support DVT/GI PPX:restart sq heparin D/W RN and RT Pt. is DNR Social work for DC planning LTACH, planned [facility] cct 30 min Updated 05/17/21 Continue current vent support 20/500/40%/5 trach care DC sedation, precedex gtt may remain, once awake proceed with PS trial Follow ABG/CXR--changes as needed Follow ID recs for ABX --continue meropenem and Zyvox Trach care daily and as needed Follow surgery recommendations S/P 05/15/2021 Follow nephrology recs-- HD on hold, last HD was friday Monitor hemoglobin--stable-- monitor with restart DVT PPX Follow Cardiology recs--preserved LV function, hypertension, cardene gtt Continue TF for nutritional support DVT/GI PPX:restart sq heparin-- monitor D/W RN and RT Pt. is DNR Social work for DC planning LTACH, planned to [facility] to [facility] friday cct 30 min Updated 05/16/21 Continue current vent support 20/500/40%/5 Will reduce sedation, and start with pressure support trials in the morning Follow ABG/CXR--changes as needed Follow ID recs for ABX --continue meropenem and Zyvox Trach care daily and as needed Follow surgery recommendations plan for tracheostomy 05/15/2021 Follow nephrology recs-- HD Monitor hemoglobin--stable Follow Cardiology recs--preserved LV function, hypertension, cardene gtt Continue TF for nutritional support DVT/GI PPX:no AC 2/2 anemia D/W RN and RT Pt. is DNR Social work for DC planning LTACH cct 30 min Updated 05/15/21 Continue current vent support 20/500/40%/5 Follow ABG/CXR--changes as needed Follow ID recs for ABX --Continue cefepime, Zyvox Follow surgery recommendations plan for tracheostomy 05/15/2021 Follow nephrology recs-- HD --hemodialysis, Monitor hemoglobin Follow Cardiology recs--preserved LV function, hypertension, back on cardene gtt Continue TF for nutritional support --on hold for procedure DVT/GI PPX:no AC 2/2 anemia D/W RN and RT Pt. is DNR Addendum;. Patient was reevaluated after tracheostomy. No initial complications. No bleeding. We will keep him sedated for next 24 hours and restart weaning process from tomorrow. cct 30 min JONES IFSHMAN MD May 18, 2021 09:51
--- NOTE | 2021-05-18 09:57 | PDOC ---
Renal-Progress Notes Subjective Notes Notes UNRESPONSIVE ON THE VENT History of Present Illness Hx of present illness NO ACUTE CHANGES Vitals Vitals Vital Signs Date Time Temp Pulse Resp B/P (MAP) Pulse Ox O2 Delivery O2 Flow Rate FiO2 05/18/21 09:27 108 155/92 05/18/21 07:11 100 Ventilator 05/18/21 07:00 20 05/18/21 04:00 97.0 97.0 Weight Weight [ ] I.O. Intake and Output Intake and Output 05/18/21 07:00 Intake Total 6321.0 ml Output Total 2075 ml Balance 4246.0 ml IV Total 3746.0 ml Tube Feeding 1275 ml Other 1300 ml Output Urine Total 2075 ml Gastric Drainage Total 0 ml Labs Labs Laboratory Tests Test 05/17/21 12:12 05/17/21 17:56 05/17/21 18:30 05/18/21 05:15 Glucose (Fingerstick) 186 mg/dL (70-99) 192 mg/dL (70-99) Prothrombin Time 13.3 SEC (11.7-14.0) Prothromb Time International Ratio 1.0 (0.8-1.1) White Blood Count 12.9 x10^3/uL (4.0-11.0) Red Blood Count 3.27 x10^6/uL (4.30-5.70) Hemoglobin 8.8 g/dL (13.0-17.5) Hematocrit 26.8 % (39.0-53.0) Mean Corpuscular Volume 82 fL (79-100) Mean Corpuscular Hemoglobin 27 pg (25-35) Mean Corpuscular Hemoglobin Concent 33 g/dL (31-37) Red Cell Distribution Width 16.6 % (11.5-14.5) Platelet Count 190 x10^3/uL (140-400) Neutrophils (%) (Auto) 69 % (31-73) Lymphocytes (%) (Auto) 19 % (24-48) Monocytes (%) (Auto) 9 % (0-9) Eosinophils (%) (Auto) 2 % (0-3) Basophils (%) (Auto) 1 % (0-3) Neutrophils # (Auto) 8.9 x10^3/uL (1.8-7.7) Lymphocytes # (Auto) 2.5 x10^3/uL (1.0-4.8) Monocytes # (Auto) 1.2 x10^3/uL (0.0-1.1) Eosinophils # (Auto) 0.2 x10^3/uL (0.0-0.7) Basophils # (Auto) 0.1 x10^3/uL (0.0-0.2) Sodium Level 130 mmol/L (136-145) Potassium Level 3.5 mmol/L (3.5-5.1) Chloride Level 97 mmol/L (98-107) Carbon Dioxide Level 25 mmol/L (21-32) Anion Gap 8 (6-14) Blood Urea Nitrogen 36 mg/dL (8-26) Creatinine 2.9 mg/dL (0.7-1.3) Estimated GFR (Cockcroft-Gault) 25.9 Glucose Level 144 mg/dL (70-99) Calcium Level 8.8 mg/dL (8.5-10.1) Phosphorus Level 4.4 mg/dL (2.6-4.7) Magnesium Level 2.1 mg/dL (1.8-2.4) Test 05/18/21 05:19 05/18/21 07:18 Glucose (Fingerstick) 135 mg/dL (70-99) O2 Saturation 93 % (92-99) Arterial Blood pH 7.45 (7.35-7.45) Arterial Blood pCO2 at Patient Temp 36 mmHg (35-46) Arterial Blood pO2 at Patient Temp 67 mmHg (65-108) Arterial Blood HCO3 24 mmol/L (21-28) Arterial Blood Base Excess 1 mmol/L (-3-3) FiO2 40 Micro Micro Microbiology 05/11/21 Gram Stain Evaluation - Final, Complete 05/11/21 Respiratory Culture - Final, Complete 05/04/21 Gram Stain - Final, Complete 05/04/21 Aerobic Culture - Final, Complete 05/04/21 Blood Culture - Final, Complete NO GROWTH AFTER 5 DAYS Review of Systems Constitutional: yes: unresponsive, other (UNABLE TO OBTAIN) Physical Exam General Appearance: other (ON THE VENT) Respiratory: decreased breath sounds Heart: S1S2 Abdomen: bowel sounds present Genitourinary: bladder flat Extremities: atrophy Neurology: other (sedated) Musculoskeletal: Other Assessment Assessment IMP HYPONATREMIA-STABLE NA OF 130 HYPOKALEMIA-CORRECTED [id number] IMPROVING -CR STABLE AT 2.9 CKD - SUSPECT STAGE 3 ACUTE HYPOXIC RESP FAILURE-FIO2 INCREASED COVID 19 PNEUMONIA MET ACIDOSIS-BETTER LEUCOCYTOSIS ANEMIA S/P TRACH DIARRHEA PLAN REPLACE K NEEDED REMAINS CRITICALLY ILL VENT SUPPORT-FIO2 OF 40% NUTRITION-NEPRO TF HOLD BETTY DUE TO HYPERCOAGULABLE STATE PRESSORS NEEDED HD LAST ON SAT 08-07 CONT TO HOLD HD MAINTAIN HD LINE CONT TO MONITOR FOR RENAL RECOVERY HOLD LASIX CONT IVF PROB D/C TO [facility]EXT [facility] WILL FOLLOW JEANINE NEWTON MD May 18, 2021 09:57
--- NOTE | 2021-05-18 10:20 | PDOC ---
Date of Service: DATE: 05/18/21 TIME: 10:16 Objective: Objective: Tolerating tube feeds @ 40cc/hr - plans to increase to 50. INR 1. Vital Signs: Vital Signs Date Time Temp Pulse Resp B/P (MAP) Pulse Ox O2 Delivery O2 Flow Rate FiO2 05/18/21 09:27 108 155/92 05/18/21 07:11 100 Ventilator 05/18/21 07:00 20 05/18/21 04:00 97.0 97.0 Labs: Laboratory Tests Test 05/17/21 12:12 05/17/21 17:56 05/18/21 05:19 Glucose (Fingerstick) 186 mg/dL (70-99) 192 mg/dL (70-99) 135 mg/dL (70-99) Imaging: CXR 05/18 Impression: 1. Unchanged support device positioning, as above. 2. Persistence of small left larger than right pleural effusions and basilar predominant airspace opacification. PE: GEN: chronically ill LUNGS: coarse, trach/vent HEART: tachycardic ABD: large/round, hernia w/ some discomfort NEURO/PSYCH: awake and alert A/P: COVID-19/resp failure s/p trach - tolerating tube feeds ACD/JENN - stable, no obvious GI bleeding H/o GERD -- ?PEG Friday? COVID + 04/24/21 - will d/w GI lab. Justicifation of Admission Dx: Justifications for Admission: Justification of Admission Dx: Yes Aspiration Pneumonia: Hemodynamic Instability TAIWO THEODORE May 18, 2021 10:20
--- NOTE | 2021-05-18 11:08 | PDOC ---
[employer] PROGRESS NOTE Date of Service DOS: DATE: 05/18/21 TIME: 11:06 Chief Complaint Chief Complaint Respiratory failure requiring intubation COVID-19 Acute PA A. fib SIRS Hypertension with hypertensive urgency Hyperlipidemia CKD Diabetes History of bilateral subclavian stenosis History of marijuana use Severe protein calorie malnutrition Trach placed on May 15 GI consulted for PEG evaluation History of Present Illness History of Present Illness 05/18/21 Patient seen and examined at bedside. Attempting to increase tube feeds, GI consulted for PEG evaluation. Otherwise no major clinical changes. Continue to wean sedation. Plan of care discussed with bedside nurse. 05/17/21 Patient seen and examined at bedside. Attempting to wean sedation. Patient with some diarrhea. Per infectious disease will give erythromycin eye ointment for eye lesions. Nephro and pulm also following. Continue sedation weaning, plan of care discussed with bedside nurse. 05/16/21 Patient seen and examined at bedside. Underwent tracheostomy yesterday today tolerated well. When seen this morning patient is still notably sedated respiratory status is stable. Continue antibiotics and supportive measures. Plan of care discussed with bedside nurse. Attempt to wean sedation. 05/15/21 Patient seen and examined at bedside Remains intubated and sedated planning for tracheostomy today Continue current respiratory support; continue antibiotics, continue sedation Follow recommendations of pulmonary, renal, and infectious disease Plan of care discussed with bedside nurse Will follow up with patient after surgery today 05/14/21 Patient seen and examined at bedside Remains intubated and sedated planning for tracheostomy tomorrow Continue current respiratory support; continue antibiotics, continue sedation Follow recommendations of pulmonary, renal, and infectious disease Plan of care discussed with bedside nurse 05/13/2021 did not tolerate sedation vacation 05/11/2021, profoundly hypertensive ABG/CXR--changes as needed Continue iv cefepime , add zyvox, sputum culture VENT [id number]%, 5 of PEEP Mild pulmonary edema with new small right pleural effusion and basilar opacities now on cardene gtt prn Patient seen and examined in the [facility] ICU remains mechanically ventilated ILDA on CKD - ATN 2/2 sepsis/ Hypotension,UOP good,on IV Lasix ; requiring dialysis, Sedated with propofol Dex and fentanyl Chart reviewed Discussed with RN He remains critically ill intubated/sedated cont cardene gtt not able to tolerate PS trial 05/06/21 Change central line and send cath tip for cultures. 05-09 C. difficile PCR ADELSO AVILA MD ORDERED: BCULT Procedure Result BLOOD CULTURE Final NO GROWTH AFTER 5 DAYS JONES FISHMAN MD, CHRISTOPHER S MD BLOOD CULTURE Preliminary NO GROWTH AFTER 4 DAYS 37 min cc time 05/12/2021 Continue iv cefepime , add zyvox, sputum culture VENT [id number]%, 5 of PEEP Mild pulmonary edema with new small right pleural effusion and basilar opacities now on cardene gtt prn Patient seen and examined in the COVID-19 ICU remains mechanically ventilated ILDA on CKD - ATN 2/2 sepsis/ Hypotension,UOP good,on IV Lasix ; requiring dialysis, Sedated with propofol Dex and fentanyl Chart reviewed Discussed with RN He remains critically ill intubated/sedated cont cardene gtt not able to tolerate PS trial 05/06/21 Change central line and send cath tip for cultures. 05-09 C. difficile PCR JONES FISHMAN MD, CHRISTOPHER S MD SISILLO, SABATO MD ORDERED: BCULT Procedure Result BLOOD CULTURE Preliminary NO GROWTH AFTER 2 DAYS BLOOD CULTURE Preliminary NO GROWTH AFTER 4 DAYS 33 min cc time 05/11/2021 Continue iv cefepime , add zyvox, sputum culture VENT %, 5 of PEEP Mild pulmonary edema with new small right pleural effusion and basilar opacities now on cardene gtt prn Patient seen and examined in the COVID-19 ICU remains mechanically ventilated ILDA on CKD - ATN 2/2 sepsis/ Hypotension,UOP good,on IV Lasix ; requiring dialysis, Sedated with propofol Dex and fentanyl Chart reviewed Discussed with RN He remains critically ill intubated/sedated cont cardene gtt not able to tolerate PS trial 05/06/21 Change central line and send cath tip for cultures. 05-09 C. difficile PCR JONES FISHMAN MD,BRIAN AVILA,ADELSO POTTER ORDERED: BCULT Procedure Result BLOOD CULTURE Preliminary NO GROWTH AFTER 2 DAYS BLOOD CULTURE Preliminary NO GROWTH AFTER 4 DAYS 36 min cc time 05/10/2021 VENT %, 5 of PEEP Mild pulmonary edema with new small right pleural effusion and basilar opacities now on cardene gtt prn Patient seen and examined in the [place] [address] ICU remains mechanically ventilated ILDA on CKD - ATN 2/2 sepsis/ Hypotension,UOP good,on IV Lasix ; requiring dialysis, Sedated with propofol Dex and fentanyl Chart reviewed Discussed with RN He remains critically ill intubated/sedated cont cardene gtt not able to tolerate PS trial 05/06/21 Change central line and send cath tip for cultures. 05-09 C. difficile PCR JONES FISHMAN MD,ADELSO DASILVA MD, MD ORDERED: BCULT Procedure Result BLOOD CULTURE Preliminary NO GROWTH AFTER 2 DAYS BLOOD CULTURE Preliminary NO GROWTH AFTER 4 DAYS 33 min cc time 05/09/2021 VENT [id number]%, 5 of PEEP Mild pulmonary edema with new small right pleural effusion and basilar opacities now on cardene gtt prn Patient seen and examined in the COVID-19 ICU remains mechanically ventilated ILDA on CKD - ATN 2/2 sepsis/ Hypotension,UOP good,on IV Lasix ; requiring dialysis, Sedated with propofol Dex and fentanyl Chart reviewed Discussed with RN He remains critically ill intubated/sedated cont cardene gtt not able to tolerate PS trial 05/06/21 Change central line and send cath tip for cultures. 05-09 C. difficile PCR JONES FISHMAN MD, CHRISTOPHER S MD SISILLO, SABATO MD ORDERED: BCULT Procedure Result BLOOD CULTURE Preliminary NO GROWTH AFTER 2 DAYS BLOOD CULTURE Preliminary NO GROWTH AFTER 4 DAYS 37 min cc time 05/08/2021 Currently on 40%, 5 of PEEP now on cardene gtt Patient seen and examined in the [place] [address] ICU remains mechanically ventilated ILDA on CKD - ATN 2/2 sepsis/ Hypotension,UOP good,on IV Lasix ; requiring dialysis, AC/20/500/40 percent with 5 of PEEP Sedated with propofol Dex and fentanyl Chart reviewed Discussed with RN He remains critically ill intubated/sedated cont cardene gtt not able to tolerate PS trial 05/06/21 JONES FISHMAN MD,ADELSO DASILVA MD, MD ORDERED: BCULT Procedure Result BLOOD CULTURE Preliminary NO GROWTH AFTER 2 DAYS BLOOD CULTURE Preliminary NO GROWTH AFTER 4 DAYS 33 min cc time 05/07/2021 Patient seen and examined in the [place] [address] ICU He remains mechanically ventilated ILDA on CKD - ATN 2/2 sepsis/ Hypotension,UOP good,on IV Lasix ; requiring dialysis, AC/20/500/40 percent with 5 of PEEP Sedated with propofol Dex and fentanyl Chart reviewed Discussed with RN He remains critically ill intubated/sedated cont cardene gtt not able to tolerate PS trial 05/06/21 JONES FISHMAN MD,ADELSO DASILVA MD, MD ORDERED: BCULT Procedure Result BLOOD CULTURE Preliminary NO GROWTH AFTER 2 DAYS 36 min cc time 05/06/2021 Patient seen and examined in the [place] [address] ICU He remains mechanically ventilated AC/20/500/40 percent with 5 of PEEP Sedated with propofol Dex and fentanyl Chart reviewed Discussed with RN He remains critically ill 05/05/2020 Patient seen and examined in the [place] [address] ICU He remains on the vent AC/20/500/40 percent with 5 of PEEP Discussed with RN Chart reviewed Has SCDs in place Nieves to bedside drainage He remains critically ill 05/04/2021 Patient seen and examined in the [place] [address] ICU Still intubated Sedated with propofol and fentanyl AC/20/500/70 percent with 5 of PEEP On dialysis currently Has SCDs in Nieves to bedside drainage Discussed with RN Chart reviewed 05/03/2021 Patient seen and examined in the [place] [address] ICU He is still intubated AC/20/500/70 percent with 5 of PEEP Has SCDs in place Nieves to bedside drainage Sedated with fentanyl Versed and propofol Discussed are Chart reviewed Remains critically ill 05/02/2021 Patient seen and examined in the [place] [address] ICU He is sedated with propofol fentanyl and Versed Ventilator settings as follow AC/20/500/40 percent with 5 of PEEP Has Nieves to bedside drainage Chart reviewed Discussed with RN He remains critically ill 05/01/2021 Patient seen and examined in the [place] [address] ICU He is still intubated AC/20/500/40 percent with 5 of PEEP In A. fib Sedated with propofol fentanyl and Versed Has a heparin drip Missy with RN Chart reviewed He remains critically 04/30/2020 Patient seen and examined in the [place] [address] ICU He remains on the vent AC/20/500/40 5% with 5 PEEP Currently on dialysis Has OG feeds running Has a Nieves to bedside drainage Sedated with propofol and fentanyl Reviewed chart Discussed with RN He remains critically ill Mr Cunha is a 75 yo male w/ PMHx CAD, HTN, Hyperlipidemia, subclavian steel syndrome, subclavian stenosis s/p left subclavian sent placement complicated by retroperitoneal hematoma s/p evacuation in 08/2015), asthma, BART, CKD, DM2 who presented from home with home health care noted that he was short of breath and valverde with O2 saturations less than 89% as low as 84% not improved with nasal cannulated oxygen placed on CPAP and brought to ED for further care. He was just discharged from the hospital a week ago on April 19, 2021 for abdominal pain and was going for further cardiac testing with outpatient stress testing scheduled on May 28, 2021. Had echocardiogram April 17, 2021 with normal-appearing EF with moderate concentric LVH no significant valvular abnormalities. WBC 20, Hb 10.7, platelets 268, NA 140, K3.8, BUN 21, CR 2.9, glucose 162, albumin 3, troponin I 1.372, NT proBNP 33,318. EKG appears sinus tachycardia rate of 105 bpm with multiple PACs small ST depressions in lead II and V5. TWI in V6. Chest radiograph with diffuse interstitial and alveolar opacities and ET tube 5.8 cm above the leilani. Due to worsening respiratory status ED physician elected to intubate patient. Seen postintubation. Blood pressure little low after propofol bolus, but improved. Significant white frothy sputum per ET tube. Admitted to ICU for further care 04/29/2021: Afebrile, remains on vent at FiO2 45%, PEEP 5. WBC 20.4. Hemodialysis per nephrology. We will continue treatment with empiric antibiotics, remdesivir, and steroids. Continue heparin infusion and supportive care. Critical care time 30 minutes reviewing chart, review labs, review imaging, discussion with RN. 04/28/2021: Afebrile. FiO2 50%, PEEP 5. Nontunneled HD catheter placed yesterday due to worsening kidney function; eGFR 16 (CKD4). Chest x-ray showed unchanged interstitial opacities. Continue empiric antibiotics, steroids, and remdesivir. Continue heparin infusion, and continue to follow cardiology recommendations on new diagnosis of A. fib. Critical care time 30 minutes reviewing chart, review labs, review imaging, discussion with RN. 04/27/2021: Afebrile. On vent with FiO2 50%, PEEP 5. Troponin 2.8 yesterday; probable type II, demand ischemia. New onset A. fib. Continue heparin drip and as needed digoxin, per cardiology. Continue treatment with remdesivir, steroids, and prophylactic antibiotics. CBG 323 this morning; will add basal insulin. Critical care 30 minutes spent reviewing labs, reviewing imaging, reviewing charts, and discussion with RN. 04/26/2021: COVID-19 positive. Febrile overnight that was managed with cooling blankets. On vent with FiO2 50%, PEEP 5. Per cardiology, elevated troponins likely secondary to demand ischemia; continue heparin drip per cardiology. Maintain fluid balance and avoid nephrotoxins. Continue treatment with remdesivir, steroids, and prophylactic antibiotics. 30 minutes critical care time spent reviewing charts, reviewing labs, reviewing imaging, and discussion with RN. 04/25/2021: On vent FiO2 50, PEEP 5. Febrile, T-max 103.3. Patient was initiated on cooling blankets. Procalcitonin 0.13. Continue coverage for hospital-acquired pneumonia with cefepime. MRSA PCR pending. Critical care time 30 minutes spent reviewing charts, reviewing labs, review of imaging, discussion with RN. Vitals/I&O Vitals/I&O: Vital Signs Date Time Temp Pulse Resp B/P (MAP) Pulse Ox O2 Delivery O2 Flow Rate FiO2 05/18/21 09:27 108 155/92 05/18/21 07:11 100 Ventilator 05/18/21 07:00 20 05/18/21 04:00 97.0 97.0 I & O 05/17/21 05/17/21 05/18/21 15:00 23:00 07:00 Intake Total 14 ml 3277.0 ml 3030 ml Output Total 925 ml 575 ml 575 ml Balance -911 ml 2702.0 ml 2455 ml Physical Exam Physical Exam: GENERAL: Well-developed and well-nourished male, intubated, sedated. HEENT: Normocephalic, atraumatic, redness and erythema of both eyes left greater than right ETT and OGT present. NECK: right dialysis catheter present clean,central line changed ( 05/11) HEART: S1, S2. LUNGS: Decreased breath sounds. ABDOMEN: Soft, obese, bowel sounds present. GENITOURINARY: Nieves in place. EXTREMITIES: Edema present. DERMATOLOGIC: Warm, dry, no generalized rash. NEUROLOGIC: Intubated. PICC line clean General: No acute distress, Other (Sedated) Heart: Regular rate, Normal S1, Normal S2 Lungs: Clear, Other Abdomen: Normal bowel sounds, Other (ND) Extremities: No clubbing, No cyanosis, Other (Lower extremity edema) Skin: No rashes, No breakdown, No significant lesion Labs Labs: Laboratory Tests Test 05/17/21 12:12 05/17/21 17:56 05/17/21 18:30 05/18/21 05:15 Glucose (Fingerstick) 186 mg/dL (70-99) 192 mg/dL (70-99) Prothrombin Time 13.3 SEC (11.7-14.0) Prothromb Time International Ratio 1.0 (0.8-1.1) White Blood Count 12.9 x10^3/uL (4.0-11.0) Red Blood Count 3.27 x10^6/uL (4.30-5.70) Hemoglobin 8.8 g/dL (13.0-17.5) Hematocrit 26.8 % (39.0-53.0) Mean Corpuscular Volume 82 fL (79-100) Mean Corpuscular Hemoglobin 27 pg (25-35) Mean Corpuscular Hemoglobin Concent 33 g/dL (31-37) Red Cell Distribution Width 16.6 % (11.5-14.5) Platelet Count 190 x10^3/uL (140-400) Neutrophils (%) (Auto) 69 % (31-73) Lymphocytes (%) (Auto) 19 % (24-48) Monocytes (%) (Auto) 9 % (0-9) Eosinophils (%) (Auto) 2 % (0-3) Basophils (%) (Auto) 1 % (0-3) Neutrophils # (Auto) 8.9 x10^3/uL (1.8-7.7) Lymphocytes # (Auto) 2.5 x10^3/uL (1.0-4.8) Monocytes # (Auto) 1.2 x10^3/uL (0.0-1.1) Eosinophils # (Auto) 0.2 x10^3/uL (0.0-0.7) Basophils # (Auto) 0.1 x10^3/uL (0.0-0.2) Sodium Level 130 mmol/L (136-145) Potassium Level 3.5 mmol/L (3.5-5.1) Chloride Level 97 mmol/L (98-107) Carbon Dioxide Level 25 mmol/L (21-32) Anion Gap 8 (6-14) Blood Urea Nitrogen 36 mg/dL (8-26) Creatinine 2.9 mg/dL (0.7-1.3) Estimated GFR (Cockcroft-Gault) 25.9 Glucose Level 144 mg/dL (70-99) Calcium Level 8.8 mg/dL (8.5-10.1) Phosphorus Level 4.4 mg/dL (2.6-4.7) Magnesium Level 2.1 mg/dL (1.8-2.4) Test 05/18/21 05:19 05/18/21 07:18 Glucose (Fingerstick) 135 mg/dL (70-99) O2 Saturation 93 % (92-99) Arterial Blood pH 7.45 (7.35-7.45) Arterial Blood pCO2 at Patient Temp 36 mmHg (35-46) Arterial Blood pO2 at Patient Temp 67 mmHg (65-108) Arterial Blood HCO3 24 mmol/L (21-28) Arterial Blood Base Excess 1 mmol/L (-3-3) FiO2 40 Review of Systems Review of Systems: Cannot obtain Assessment and Plan Assessmemt and Plan Problems Medical Problems: (1) Elevated troponin Status: Acute (2) Person under investigation for COVID-19 Status: Acute (3) Pulmonary edema Status: Acute Comment Review of Relevant I have reviewed the following items juanita (where applicable) has been applied. Medications: Current Medications Medications (Trade) Dose Ordered Sig/Jodie Route PRN Reason Start Time Stop Time Status Last Admin Dose Admin Erythromycin (Romycin) 0.25 inch BID OU 05/17/21 12:00 05/18/21 09:26 Justifications for Admission General Conditions Altered mental status?: Yes Justification of admission: Patient has tachycardia (> 100 beats per minute) or hypotension (SBP < 90 mm Hg) leading to inadequate systemic perfusion as indicated by severe/persistent altered mental status. Other Justification BRIAN ERNST MD May 18, 2021 11:07
[2021-05-18] MEDS: HEPARIN for SUB-Q USE 5,000 UNIT/ML VIAL. SQ SCH ×3 (11:43→20:52)
--- NOTE | 2021-05-18 14:02 | NUR ---
Pt had large amount of emesis this morning. Residual checked with morning assessment and nothing was aspirated. Abd is distended and firm but has had bowel movements. Tube feeding stopped and NG placed to low intermittent suction.
--- NOTE | 2021-05-18 15:34 | NUR ---
SS following up with discharge planning. SS reviewed pt chart and discussed with pt RN. Pt is currently on the vent at 40%. Trach in place. COVID19 recovered. Pt on Cardene and Precedex. Pt on IV Meropenem. Wound care following. GI following. NG in place. Pt accepted for LTACH at [facility], ; fax [phone]. [facility] reported that they will submit for insurance authorization on Friday. SS will continue to follow for discharge planning.
[2021-05-18] MEDS: ATORVASTATIN CALCIUM 40 MG TABLET. PO SCH (20:50)
[2021-05-18] MEDS: MONTELUKAST SODIUM 10 MG TABLET. PO SCH (20:50)
[2021-05-18] MEDS: INSULIN GLARGINE SYRINGE. SQ SCH (21:01)
[2021-05-19] VITALS (27 sets, daily range): BP systolic 109–198; BP diastolic 53–93
[2021-05-19] MEDS: IV NORMAL SALINE 1000ML BAG 1,000 ML IV SCH ×3 (03:05→23:47)
[2021-05-19] MEDS: DEXMEDETOMIDINE 400 MCG in IV NORMAL SALINE 100ML 96 ML IV PRN ×8 (03:05→22:40)
[2021-05-19] MEDS: HEPARIN for SUB-Q USE 5,000 UNIT/ML VIAL. SQ SCH ×3 (05:33→20:33)
[2021-05-19] MEDS: INSULIN LISPRO 300 UNITS/3 ML VIAL. SQ SCH ×4 (05:33→23:47)
[2021-05-19] MEDS: METOPROLOL IV PUSH 5 MG/5 ML VIAL. IVP SCH ×4 (05:34→23:48)
[2021-05-19 05:49] LABS: CALCIUM 8.3 mg/dL (8.5-10.1); CREATININE 2.8 mg/dL (0.7-1.3); GFR 26.9; POTASSIUM 3.1 mmol/L (3.5-5.1)
[2021-05-19] MEDS ORDERED: POTASSIUM BICARB 20 MEQ EFFERVESCENT TABLET. PO ONE (08:30)
[2021-05-19] MEDS: PANTOPRAZOLE IV PUSH 40 MG VIAL. IVP SCH (08:51)
[2021-05-19] MEDS: AMIODARONE HCL 200 MG TABLET. PO SCH (08:51)
[2021-05-19] MEDS: ERYTHROMYCIN 0.5% OPHTH OINTMENT 1GM TUBE. OU SCH ×2 (08:52→20:04)
[2021-05-19] MEDS: hydrALAZINE 25 MG TABLET PO SCH ×4 (08:52→20:05)
[2021-05-19] MEDS: NYSTATIN TOPICAL POWDER 15GM BOTTLE. TP SCH ×2 (08:52→20:04)
[2021-05-19] MEDS: ASPIRIN CHEWABLE 81 MG TABLET. PO SCH (08:52)
[2021-05-19] MEDS: MEROPENEM 500 MG in IV NORMAL SALINE 50ML 50 ML IV SCH ×2 (09:04→20:03)
--- NOTE | 2021-05-19 09:33 | PDOC ---
PULMONARY PROGRESS NOTES DATE: 05/19/21 TIME: 09:32 Subjective Remains on ventilatory support 40%/peep of 5 Patient had significant emesis yesterday. He was not placed on CPAP trial. Vitals Vital Signs Date Time Temp Pulse Resp B/P (MAP) Pulse Ox O2 Delivery O2 Flow Rate FiO2 05/19/21 09:27 100 Ventilator 05/19/21 08:52 105 174/78 05/19/21 07:00 20 05/19/21 04:00 98.1 98.1 Comments Awake and follows some commands. No obvious respiratory distress HEENT: Other (Trachea midline) Lungs: Clear Cardiovascular: S1, S2 Abdomen: Soft Extremities: No Edema Labs Laboratory Tests Test 05/17/21 12:12 05/17/21 17:56 05/17/21 18:30 05/18/21 05:15 Glucose (Fingerstick) 186 mg/dL (70-99) 192 mg/dL (70-99) Prothrombin Time 13.3 SEC (11.7-14.0) Prothromb Time International Ratio 1.0 (0.8-1.1) White Blood Count 12.9 x10^3/uL (4.0-11.0) Red Blood Count 3.27 x10^6/uL (4.30-5.70) Hemoglobin 8.8 g/dL (13.0-17.5) Hematocrit 26.8 % (39.0-53.0) Mean Corpuscular Volume 82 fL (79-100) Mean Corpuscular Hemoglobin 27 pg (25-35) Mean Corpuscular Hemoglobin Concent 33 g/dL (31-37) Red Cell Distribution Width 16.6 % (11.5-14.5) Platelet Count 190 x10^3/uL (140-400) Neutrophils (%) (Auto) 69 % (31-73) Lymphocytes (%) (Auto) 19 % (24-48) Monocytes (%) (Auto) 9 % (0-9) Eosinophils (%) (Auto) 2 % (0-3) Basophils (%) (Auto) 1 % (0-3) Neutrophils # (Auto) 8.9 x10^3/uL (1.8-7.7) Lymphocytes # (Auto) 2.5 x10^3/uL (1.0-4.8) Monocytes # (Auto) 1.2 x10^3/uL (0.0-1.1) Eosinophils # (Auto) 0.2 x10^3/uL (0.0-0.7) Basophils # (Auto) 0.1 x10^3/uL (0.0-0.2) Sodium Level 130 mmol/L (136-145) Potassium Level 3.5 mmol/L (3.5-5.1) Chloride Level 97 mmol/L (98-107) Carbon Dioxide Level 25 mmol/L (21-32) Anion Gap 8 (6-14) Blood Urea Nitrogen 36 mg/dL (8-26) Creatinine 2.9 mg/dL (0.7-1.3) Estimated GFR (Cockcroft-Gault) 25.9 Glucose Level 144 mg/dL (70-99) Calcium Level 8.8 mg/dL (8.5-10.1) Phosphorus Level 4.4 mg/dL (2.6-4.7) Magnesium Level 2.1 mg/dL (1.8-2.4) Test 05/18/21 05:19 05/18/21 07:18 05/18/21 11:36 05/18/21 16:44 Glucose (Fingerstick) 135 mg/dL (70-99) 188 mg/dL (70-99) 143 mg/dL (70-99) O2 Saturation 93 % (92-99) Arterial Blood pH 7.45 (7.35-7.45) Arterial Blood pCO2 at Patient Temp 36 mmHg (35-46) Arterial Blood pO2 at Patient Temp 67 mmHg (65-108) Arterial Blood HCO3 24 mmol/L (21-28) Arterial Blood Base Excess 1 mmol/L (-3-3) FiO2 40 Test 05/18/21 23:48 05/19/21 05:25 05/19/21 05:30 Glucose (Fingerstick) 151 mg/dL (70-99) 87 mg/dL (70-99) Sodium Level 134 mmol/L (136-145) Potassium Level 3.1 mmol/L (3.5-5.1) Chloride Level 102 mmol/L (98-107) Carbon Dioxide Level 26 mmol/L (21-32) Anion Gap 6 (6-14) Blood Urea Nitrogen 36 mg/dL (8-26) Creatinine 2.8 mg/dL (0.7-1.3) Estimated GFR (Cockcroft-Gault) 26.9 Glucose Level 92 mg/dL (70-99) Calcium Level 8.3 mg/dL (8.5-10.1) Laboratory Tests Test 05/18/21 11:36 05/18/21 16:44 05/18/21 23:48 05/19/21 05:25 Glucose (Fingerstick) 188 mg/dL (70-99) 143 mg/dL (70-99) 151 mg/dL (70-99) 87 mg/dL (70-99) Test 05/19/21 05:30 Sodium Level 134 mmol/L (136-145) Potassium Level 3.1 mmol/L (3.5-5.1) Chloride Level 102 mmol/L (98-107) Carbon Dioxide Level 26 mmol/L (21-32) Anion Gap 6 (6-14) Blood Urea Nitrogen 36 mg/dL (8-26) Creatinine 2.8 mg/dL (0.7-1.3) Estimated GFR (Cockcroft-Gault) 26.9 Glucose Level 92 mg/dL (70-99) Calcium Level 8.3 mg/dL (8.5-10.1) Medications Active Scripts Medications Dose Route/Sig Max Daily Dose Days Date Category Glyburide 2.5 Mg Tablet 1 Tab PO DAILY 04/19/21 Rx Polyethylene Glycol 3350 17 Gm Powd.pack 17 Gm PO DAILY 04/19/21 Rx Dok (Docusate Sodium) 100 Mg Capsule 100 Mg PO PRN DAILY PRN 04/19/21 Rx Bisacodyl 5 Mg Tablet.dr 5 Mg PO PRN DAILY PRN 04/19/21 Rx Acetaminophen 325 Mg Tablet 650 Mg PO PRN Q4HRS PRN 04/19/21 Rx Aspirin Ec (Aspirin) 81 Mg Tablet.dr 81 Mg PO DAILYWBKFT 04/19/21 Rx Hydralazine Hcl 25 Mg Tablet 25 Mg PO QID 04/19/21 Rx Fenofibrate 54 Mg Tablet 1 Tab PO DAILY 04/17/21 Reported Potassium Chloride (Potassium Chloride) 20 Meq Tablet.er 20 Meq PO DAILY 04/17/21 Reported Coreg (Carvedilol) 12.5 Mg Tablet 37.5 Mg PO BIDWMEALS 04/17/21 Reported Rosuvastatin Calcium 40 Mg Tablet 40 Mg PO QHS 04/17/21 Reported Gabapentin (Gabapentin) 100 Mg Capsule 200 Mg PO BID 04/17/21 Reported Montelukast Sodium Tablet (Montelukast Sodium) 10 Mg Tablet 10 Mg PO HS 04/17/21 Reported Protonix (Pantoprazole Sodium) 20 Mg Tablet.dr 2 Tab PO DAILY 04/17/21 Reported Amlodipine Besylate 5 Mg Tablet 5 Mg PO DAILY 04/17/21 Reported Furosemide 40 Mg Tablet 1 Tab PO DAILY 04/17/21 Reported Proair Hfa Inhaler (Albuterol Sulfate) 8.5 Gm Hfa.aer.ad 2 Puff IH PRN Q4-6HRS PRN 21 04/16/21 Reported Advair 100-50 Diskus (Fluticasone/Salmeterol) 1 Each Disk.w.dev 1 Puff IH BID 04/16/21 Reported Comments Impression . IMPRESSION: 1. Acute hypoxic respiratory failure, multifactorial/COVID-19 viral pneumonia/ARDS, ongoing, intubated 04/25/2021, now status post tracheostomy 05/15/[address] chest with bilateral diffuse interstitial infiltrates without any significant pleural effusion 3. Leukocytosis, sepsis--improved 4. Non-ST segment elevation NV 5. History of tobacco use, suspect COPD, unknown FEV1 6. Chronic kidney disease.== Neph neurology following, hemodialysis 7. Metabolic acidosis multifactorial 8. Abnormal chest x-ray 9. Hypoglycemia, continue to monitor--- resolved 10. Hypotension, suspect volume deficit,/possible sepsis--- resolved 11. Fever--improved 12. Anemia--improved Plan . Updated 05/19/21 Continue current vent support 20/500/40%/5 proceed with PS trial, following some commands. Follow ABG/CXR--changes as needed Follow ID recs for ABX --continue meropenem Trach care daily and as needed Follow GI recs planned for PEG tube on friday Follow surgery recommendations S/P trach 05/15/2021 Follow nephrology recs-- HD on hold, Monitor hemoglobin--stable-- Follow Cardiology recs--preserved LV function, hypertension, Continue TF for nutritional support DVT/GI PPX:restart sq heparin D/W RN and RT Pt. is DNR Social work for DC planning LTACH, planned to [facility] after PEG is placed cct 30 min Updated 05/18/21 Continue current vent support 20/500/40%/5 DC sedation, once awake proceed with PS trial Follow ABG/CXR--changes as needed Follow ID recs for ABX --continue meropenem Trach care daily and as needed Follow GI recs planned for PEG tube on friday Follow surgery recommendations S/P trach 05/15/2021 Follow nephrology recs-- HD on hold, Monitor hemoglobin--stable-- Follow Cardiology recs--preserved LV function, hypertension, Continue TF for nutritional support DVT/GI PPX:restart sq heparin D/W RN and RT Pt. is DNR Social work for DC planning LTACH, planned to [facility] to [facility] on friday cct 30 min Updated 05/17/21 Continue current vent support 20/500/40%/5 trach care DC sedation, precedex gtt may remain, once awake proceed with PS trial Follow ABG/CXR--changes as needed Follow ID recs for ABX --continue meropenem and Zyvox Trach care daily and as needed Follow surgery recommendations S/P 05/15/2021 Follow nephrology recs-- HD on hold, last HD was friday Monitor hemoglobin--stable-- monitor with restart DVT PPX Follow Cardiology recs--preserved LV function, hypertension, cardene gtt Continue TF for nutritional support DVT/GI PPX:restart sq heparin-- monitor D/W RN and RT Pt. is DNR Social work for DC planning LTACH, planned to [facility] to [facility] on friday cct 30 min Updated 05/16/21 Continue current vent support 20/500/40%/5 Will reduce sedation, and start with pressure support trials in the morning Follow ABG/CXR--changes as needed Follow ID recs for ABX --continue meropenem and Zyvox Trach care daily and as needed Follow surgery recommendations plan for tracheostomy 05/15/2021 Follow nephrology recs-- HD Monitor hemoglobin--stable Follow Cardiology recs--preserved LV function, hypertension, cardene gtt Continue TF for nutritional support DVT/GI PPX:no AC 2/2 anemia D/W RN and RT Pt. is DNR Social work for DC planning LTACH cct 30 min Updated 05/15/21 Continue current vent support 20/500/40%/5 Follow ABG/CXR--changes as needed Follow ID recs for ABX --Continue cefepime, Zyvox Follow surgery recommendations plan for tracheostomy 05/15/2021 Follow nephrology recs-- HD --hemodialysis, Monitor hemoglobin Follow Cardiology recs--preserved LV function, hypertension, back on cardene gtt Continue TF for nutritional support --on hold for procedure DVT/GI PPX:no AC 2/2 anemia D/W RN and RT Pt. is DNR Addendum;. Patient was reevaluated after tracheostomy. No initial complications. No bleeding. We will keep him sedated for next 24 hours and r estart weaning process from tomorrow. cct 30 min JONES FISHMAN MD May 19, 2021 09:33
--- NOTE | 2021-05-19 10:03 | PDOC ---
Infectious Disease Note Subjective: Subjective Pt remains intubated Undergoing weaning trial No acute issues per discussion with RN Vital Signs: Vital Signs Vital Signs Date Time Temp Pulse Resp B/P (MAP) Pulse Ox O2 Delivery O2 Flow Rate FiO2 05/19/21 09:27 100 Ventilator 05/19/21 08:52 105 174/78 05/19/21 07:00 20 05/19/21 04:00 98.1 98.1 Physical Exam: PHYSICAL EXAM GENERAL: Well-developed and well-nourished male, intubated, sedated. HEENT: Normocephalic, atraumatic, redness and erythema of both eyes left greater than right ETT and OGT present. NECK: right dialysis catheter present clean,central line changed ( 05/11) HEART: S1, S2. LUNGS: Decreased breath sounds. ABDOMEN: Soft, obese, bowel sounds present. GENITOURINARY: Nieves in place. EXTREMITIES: Edema present. DERMATOLOGIC: Warm, dry, no generalized rash. NEUROLOGIC: Intubated. PICC line clean Medications: Inpatient Meds: Medications reviewed. Labs: Lab Laboratory Tests Test 05/18/21 11:36 05/18/21 16:44 05/18/21 23:48 05/19/21 05:25 Glucose (Fingerstick) 188 mg/dL (70-99) 143 mg/dL (70-99) 151 mg/dL (70-99) 87 mg/dL (70-99) Test 05/19/21 05:30 Sodium Level 134 mmol/L (136-145) Potassium Level 3.1 mmol/L (3.5-5.1) Chloride Level 102 mmol/L (98-107) Carbon Dioxide Level 26 mmol/L (21-32) Anion Gap 6 (6-14) Blood Urea Nitrogen 36 mg/dL (8-26) Creatinine 2.8 mg/dL (0.7-1.3) Estimated GFR (Cockcroft-Gault) 26.9 Glucose Level 92 mg/dL (70-99) Calcium Level 8.3 mg/dL (8.5-10.1) Objective: Assessment: 1. Febrile illness could be healthcare-associated infection,resolved 2. Leukocytosis, on steroids. 3. COVID-19 pneumonia. 4. Acute hypoxic respiratory failure status post intubation. 5. Congestive heart failure, acute on chronic. 6. Acute kidney injury on chronic kidney disease on hemodialysis. 7. Diabetes mellitus 2. 8. Atrial fibrillation. 9. Anemia. 10. Protein-calorie malnutrition. 11. Hypertention 12.Hyponatremia Plan: Plan of Care 1. Continue Meropenem renal dosing as needed,pharmacy to assist off Zyvox 2. Follow-up labs and cultures 3. Central line changed on 05/11 4. C. difficile PCR negative 5. Continue supportive care. 6. Critically ill. Local eye care erythromycin eye ointment Discussed with nursing staff ALAYNA RIVERO MD May 19, 2021 10:03
--- NOTE | 2021-05-19 10:17 | PDOC ---
Renal-Progress Notes Subjective Notes Notes NO NEW CHANGES History of Present Illness Hx of present illness STILL VERY ILL BUT STABLE Vitals Vitals Vital Signs Date Time Temp Pulse Resp B/P (MAP) Pulse Ox O2 Delivery O2 Flow Rate FiO2 05/19/21 09:27 100 Ventilator 05/19/21 08:52 105 174/78 05/19/21 07:00 20 05/19/21 04:00 98.1 98.1 Weight Weight [ ] I.O. Intake and Output Intake and Output 05/19/21 07:00 Intake Total 5743.4 ml Output Total 1625 ml Balance 4118.4 ml IV Total 3925.4 ml Tube Feeding 1358 ml Other 460 ml Output Urine Total 1625 ml # Bowel Movements 1 Labs Labs Laboratory Tests Test 05/18/21 11:36 05/18/21 16:44 05/18/21 23:48 05/19/21 05:25 Glucose (Fingerstick) 188 mg/dL (70-99) 143 mg/dL (70-99) 151 mg/dL (70-99) 87 mg/dL (70-99) Test 05/19/21 05:30 Sodium Level 134 mmol/L (136-145) Potassium Level 3.1 mmol/L (3.5-5.1) Chloride Level 102 mmol/L (98-107) Carbon Dioxide Level 26 mmol/L (21-32) Anion Gap 6 (6-14) Blood Urea Nitrogen 36 mg/dL (8-26) Creatinine 2.8 mg/dL (0.7-1.3) Estimated GFR (Cockcroft-Gault) 26.9 Glucose Level 92 mg/dL (70-99) Calcium Level 8.3 mg/dL (8.5-10.1) Micro Micro Microbiology 05/11/21 Gram Stain Evaluation - Final, Complete 05/11/21 Respiratory Culture - Final, Complete 05/04/21 Gram Stain - Final, Complete 05/04/21 Aerobic Culture - Final, Complete 05/04/21 Blood Culture - Final, Complete NO GROWTH AFTER 5 DAYS Review of Systems Constitutional: yes: unresponsive, other (UNABLE TO OBTAIN) Physical Exam General Appearance: other (ON THE VENT) Respiratory: decreased breath sounds Heart: S1S2 Abdomen: bowel sounds present Genitourinary: bladder flat Extremities: atrophy Neurology: other (sedated) Musculoskeletal: Other Assessment Assessment IMP HYPONATREMIA-IMPROVED NA OF 130 HYPOKALEMIA [id number] IMPROVING -CR STABLE AT 2.8 CKD - SUSPECT STAGE 3 ACUTE HYPOXIC RESP FAILURE-FIO2 INCREASED COVID 19 PNEUMONIA MET ACIDOSIS-BETTER LEUCOCYTOSIS ANEMIA S/P TRACH DIARRHEA PLAN REPLACE K REMAINS CRITICALLY ILL VENT SUPPORT-FIO2 OF 40% NUTRITION-NEPRO TF HOLD BETTY DUE TO HYPERCOAGULABLE STATE PRESSORS NEEDED HD LAST ON SAT 08-07 CONT TO HOLD HD MAINTAIN HD LINE CONT TO MONITOR FOR RENAL RECOVERY HOLD LASIX FOR NOW CONT IVF LTAC TRANSFER PENDING WILL FOLLOW JEANINE NEWTON MD May 19, 2021 10:17
--- NOTE | 2021-05-19 11:23 | PDOC ---
[employer] PROGRESS NOTE Date of Service DOS: DATE: 05/19/21 TIME: 11:22 Chief Complaint Chief Complaint Respiratory failure requiring intubation COVID-19 Acute NC A. fib SIRS Hypertension with hypertensive urgency Hyperlipidemia CKD Diabetes History of bilateral subclavian stenosis History of marijuana use Severe protein calorie malnutrition Trach placed on May 15 GI consulted for PEG evaluation History of Present Illness History of Present Illness 05/19/21 Patient seen and examined at bedside. Apparently had a fair bit of vomiting overnight. GI following for PEG evaluation. Otherwise patient remained stable. Plan of care discussed with bedside nurse. 05/18/21 Patient seen and examined at bedside. Attempting to increase tube feeds, GI consulted for PEG evaluation. Otherwise no major clinical changes. Continue to wean sedation. Plan of care discussed with bedside nurse. 05/17/21 Patient seen and examined at bedside. Attempting to wean sedation. Patient with some diarrhea. Per infectious disease will give erythromycin eye ointment for eye lesions. Nephro and pulm also following. Continue sedation weaning, plan of care discussed with bedside nurse. 05/16/21 Patient seen and examined at bedside. Underwent tracheostomy yesterday today tolerated well. When seen this morning patient is still notably sedated respiratory status is stable. Continue antibiotics and supportive measures. Plan of care discussed with bedside nurse. Attempt to wean sedation. 05/15/21 Patient seen and examined at bedside Remains intubated and sedated planning for tracheostomy today Continue current respiratory support; continue antibiotics, continue sedation Follow recommendations of pulmonary, renal, and infectious disease Plan of care discussed with bedside nurse Will follow up with patient after surgery today 05/14/21 Patient seen and examined at bedside Remains intubated and sedated planning for tracheostomy tomorrow Continue current respiratory support; continue antibiotics, continue sedation Follow recommendations of pulmonary, renal, and infectious disease Plan of care discussed with bedside nurse 05/13/2021 did not tolerate sedation vacation 05/11/2021, profoundly hypertensive ABG/CXR--changes as needed Continue iv cefepime , add zyvox, sputum culture VENT [id number]%, 5 of PEEP Mild pulmonary edema with new small right pleural effusion and basilar opacities now on cardene gtt prn Patient seen and examined in the COVID-19 ICU remains mechanically ventilated ILDA on CKD - ATN 2/2 sepsis/ Hypotension,UOP good,on IV Lasix ; requiring dial ysis, Sedated with propofol Dex and fentanyl Chart reviewed Discussed with RN He remains critically ill intubated/sedated cont cardene gtt not able to tolerate PS trial 05/06/21 Change central line and send cath tip for cultures. 05-09 C. difficile PCR ADELSO AVILA MD ORDERED: BCULT Procedure Result ------- ----- BLOOD CULTURE Final NO GROWTH AFTER 5 DAYS JONES FISHMAN MD, CHRISTOPHER S MD BLOOD CULTURE Preliminary NO GROWTH AFTER 4 DAYS 37 min cc time 05/12/2021 Continue iv cefepime , add zyvox, sputum culture VENT [id number]%, 5 of PEEP Mild pulmonary edema with new small right pleural effusion and basilar opacities now on cardene gtt prn Patient seen and examined in the [place] [address] ICU remains mechanically ventilated ILDA on CKD - ATN 2/2 sepsis/ Hypotension,UOP good,on IV Lasix ; requiring dialysis, Sedated with propofol Dex and fentanyl Chart reviewed Discussed with RN He remains critically ill intubated/sedated cont cardene gtt not able to tolerate PS trial 05/06/21 Change central line and send cath tip for cultures. 05-09 C. difficile PCR JONES FISHMAN MD, CHRISTOPHER S MD SISILLO, SABATO MD ORDERED: BCULT Procedure Result BLOOD CULTURE Preliminary NO GROWTH AFTER 2 DAYS BLOOD CULTURE Preliminary NO GROWTH AFTER 4 DAYS 33 min cc time 05/11/2021 Continue iv cefepime , add zyvox, sputum culture VENT %, 5 of PEEP Mild pulmonary edema with new small right pleural effusion and basilar opacities now on cardene gtt prn Patient seen and examined in the COVID-19 ICU remains mechanically ventilated ILDA on CKD - ATN 2/2 sepsis/ Hypotension,UOP good,on IV Lasix ; requiring dialysis, Sedated with propofol Dex and fentanyl Chart reviewed Discussed with RN He remains critically ill intubated/sedated cont cardene gtt not able to tolerate PS trial 05/06/21 Change central line and send cath tip for cultures. 05-09 C. difficile PCR JONES FISHMAN MD, CHRISTOPHER S MD SISILLO, SABATO MD ORDERED: BCULT Procedure Result BLOOD CULTURE Preliminary NO GROWTH AFTER 2 DAYS BLOOD CULTURE Preliminary NO GROWTH AFTER 4 DAYS 36 min cc time 05/10/2021 VENT [id number]%, 5 of PEEP Mild pulmonary edema with new small right pleural effusion and basilar opacities now on cardene gtt prn Patient seen and examined in the COVID-19 ICU remains mechanically ventilated ILDA on CKD - ATN 2/2 sepsis/ Hypotension,UOP good,on IV Lasix ; requiring dialysis, Sedated with propofol Dex and fentanyl Chart reviewed Discussed with RN He remains critically ill intubated/sedated cont cardene gtt not able to tolerate PS trial 05/06/21 Change central line and send cath tip for cultures. 05-09 C. difficile PCR JONES FISHMAN MD,ADELSO DASILVA MD, MD ORDERED: BCULT Procedure Result BLOOD CULTURE Preliminary NO GROWTH AFTER 2 DAYS ------- ----- BLOOD CULTURE Preliminary NO GROWTH AFTER 4 DAYS 33 min cc time 05/09/2021 VENT [id number]%, 5 of PEEP Mild pulmonary edema with new small right pleural effusion and basilar opacities now on cardene gtt prn Patient seen and examined in the [place] [address] ICU remains mechanically ventilated ILDA on CKD - ATN 2/2 sepsis/ Hypotension,UOP good,on IV Lasix ; requiring dial ysis, Sedated with propofol Dex and fentanyl Chart reviewed Discussed with RN He remains critically ill intubated/sedated cont cardene gtt not able to tolerate PS trial 05/06/21 Change central line and send cath tip for cultures. 05-09 C. difficile PCR JONES FISHMAN MD,ADELSO DASILVA MD, MD ORDERED: BCULT Procedure Result BLOOD CULTURE Preliminary NO GROWTH AFTER 2 DAYS BLOOD CULTURE Preliminary NO GROWTH AFTER 4 DAYS 37 min cc time 05/08/2021 Currently on 40%, 5 of PEEP now on cardene gtt Patient seen and examined in the [facility] ICU remains mechanically ventilated ILDA on CKD - ATN 2/2 sepsis/ Hypotension,UOP good,on IV Lasix ; requiring dialysis, AC/20/500/40 percent with 5 of PEEP Sedated with propofol Dex and fentanyl Chart reviewed Discussed with RN He remains critically ill intubated/sedated cont cardene gtt not able to tolerate PS trial 05/06/21 JONES FISHMAN MD,ADELSO DASILVA MD, MD ORDERED: BCULT Procedure Result -------- ---- BLOOD CULTURE Preliminary NO GROWTH AFTER 2 DAYS BLOOD CULTURE Preliminary NO GROWTH AFTER 4 DAYS 33 min cc time 05/07/2021 Patient seen and examined in the [place] [address] ICU He remains mechanically ventilated ILDA on CKD - ATN 2/2 sepsis/ Hypotension,UOP good,on IV Lasix ; requiring dialysis, AC/20/500/40 percent with 5 of PEEP Sedated with propofol Dex and fentanyl Chart reviewed Discussed with RN He remains critically ill intubated/sedated cont cardene gtt not able to tolerate PS trial 05/06/21 JONES FISHMAN MD,ADELSO DASILVA MD, MD ORDERED: BCULT Procedure Result BLOOD CULTURE Preliminary NO GROWTH AFTER 2 DAYS 36 min cc time 05/06/2021 Patient seen and examined in the [place] [address] ICU He remains mechanically ventilated AC/20/500/40 percent with 5 of PEEP Sedated with propofol Dex and fentanyl Chart reviewed Discussed with RN He remains critically ill 05/05/2020 Patient seen and examined in the [place] [address] ICU He remains on the vent AC/20/500/40 percent with 5 of PEEP Discussed with RN Chart reviewed Has SCDs in place Nieves to bedside drainage He remains critically ill 05/04/2021 Patient seen and examined in the [place] [address] ICU Still intubated Sedated with propofol and fentanyl AC/20/500/70 percent with 5 of PEEP On dialysis currently Has SCDs in Nieves to bedside drainage Discussed with RN Chart reviewed 05/03/2021 Patient seen and examined in the [place] [address] ICU He is still intubated AC/20/500/70 percent with 5 of PEEP Has SCDs in place Nieves to bedside drainage Sedated with fentanyl Versed and propofol Discussed are Chart reviewed Remains critically ill 05/02/2021 Patient seen and examined in the [place] [address] ICU He is sedated with propofol fentanyl and Versed Ventilator settings as follow AC/20/500/40 percent with 5 of PEEP Has Nieves to bedside drainage Chart reviewed Discussed with RN He remains critically ill 05/01/2021 Patient seen and examined in the [place] [address] ICU He is still intubated AC/20/500/40 percent with 5 of PEEP In A. fib Sedated with propofol fentanyl and Versed Has a heparin drip Missy with RN Chart reviewed He remains critically 04/30/2020 Patient seen and examined in the [place] [address] ICU He remains on the vent AC/20/500/40 5% with 5 PEEP Currently on dialysis Has OG feeds running Has a Nieves to bedside drainage Sedated with propofol and fentanyl Reviewed chart Discussed with RN He remains critically ill Mr Cunha is a 75 yo male w/ PMHx CAD, HTN, Hyperlipidemia, subclavian steel syndrome, subclavian stenosis s/p left subclavian sent placement complicated by retroperitoneal hematoma s/p evacuation in 08/2015), asthma, BART, CKD, DM2 who presented from home with home health care noted that he was short of breath and valverde with O2 saturations less than 89% as low as 84% not improved with nasal cannulated oxygen placed on CPAP and brought to ED for further care. He was just discharged from the hospital a week ago on April 19, 2021 for abdominal pain and was going for further cardiac testing with outpatient stress testing scheduled on May 28, 2021. Had echocardiogram April 17, 2021 with normal-appearing EF with moderate concentric LVH no significant valvular abnormalities. WBC 20, Hb 10.7, platelets 268, NA 140, K3.8, BUN 21, CR 2.9, glucose 162, albumin 3, troponin I 1.372, NT proBNP 33,318. EKG appears sinus tachycardia rate of 105 bpm with multiple PACs small ST depressions in lead II and V5. TWI in V6. Chest radiograph with diffuse interstitial and alveolar opacities and ET tube 5.8 cm above the leilani. Due to worsening respiratory status ED physician elected to intubate patient. Seen postintubation. Blood pressure little low after propofol bolus, but improved. Significant white frothy sputum per ET tube. Admitted to ICU for further care 04/29/2021: Afebrile, remains on vent at FiO2 45%, PEEP 5. WBC 20.4. Hemodialysis per nephrology. We will continue treatment with empiric antibiotics, remdesivir, and steroids. Continue heparin infusion and supportive care. Critical care time 30 minutes reviewing chart, review labs, review imaging, discussion with RN. 04/28/2021: Afebrile. FiO2 50%, PEEP 5. Nontunneled HD catheter placed yesterday due to worsening kidney function; eGFR 16 (CKD4). Chest x-ray showed unchanged interstitial opacities. Continue empiric antibiotics, steroids, and remdesivir. Continue heparin infusion, and continue to follow cardiology recommendations on new diagnosis of A. fib. Critical care time 30 minutes reviewing chart, review labs, review imaging, discussion with RN. 04/27/2021: Afebrile. On vent with FiO2 50%, PEEP 5. Troponin 2.8 yesterday; probable type II, demand ischemia. New onset A. fib. Continue heparin drip and as needed digoxin, per cardiology. Continue treatment with remdesivir, steroids, and prophylactic antibiotics. CBG 323 this morning; will add basal insulin. Critical care 30 minutes spent reviewing labs, reviewing imaging, reviewing charts, and discussion with RN. 04/26/2021: COVID-19 positive. Febrile overnight that was managed with cooling blankets. On vent with FiO2 50%, PEEP 5. Per cardiology, elevated troponins likely secondary to demand ischemia; continue heparin drip per cardiology. Maintain fluid balance and avoid nephrotoxins. Continue treatment with remdesivir, steroids, and prophylactic antibiotics. 30 minutes critical care time spent reviewing charts, reviewing labs, reviewing imaging, and discussion with RN. 04/25/2021: On vent FiO2 50, PEEP 5. Febrile, T-max 103.3. Patient was initiated on cooling blankets. Procalcitonin 0.13. Continue coverage for hospital-acquired pneumonia with cefepime. MRSA PCR pending. Critical care time 30 minutes spent reviewing charts, reviewing labs, review of imaging, discussion with RN. Vitals/I&O Vitals/I&O: Vital Signs Date Time Temp Pulse Resp B/P (MAP) Pulse Ox O2 Delivery O2 Flow Rate FiO2 05/19/21 11:17 100 Ventilator 05/19/21 10:00 98 22 140/61 (87) 05/19/21 08:00 99.3 99.3 I & O 05/18/21 05/18/21 05/19/21 15:00 23:00 07:00 Intake Total 350 ml 2826 ml 2567.4 ml Output Total 575 ml 575 ml 475 ml Balance -225 ml 2251 ml 2092.4 ml Physical Exam Physical Exam: GENERAL: Well-developed and well-nourished male, intubated, sedated. HEENT: Normocephalic, atraumatic, redness and erythema of both eyes left greater than right ETT and OGT present. NECK: right dialysis catheter present clean,central line changed ( 05/11) HEART: S1, S2. LUNGS: Decreased breath sounds. ABDOMEN: Soft, obese, bowel sounds present. GENITOURINARY: Nieves in place. EXTREMITIES: Edema present. DERMATOLOGIC: Warm, dry, no generalized rash. NEUROLOGIC: Intubated. PICC line clean General: No acute distress, Other (Sedated) Heart: Regular rate, Normal S1, Normal S2 Lungs: Clear Abdomen: Normal bowel sounds, Other (ND) Extremities: No clubbing, No cyanosis, Other (Lower extremity edema) Skin: No rashes, No breakdown, No significant lesion Labs Labs: Laboratory Tests Test 05/18/21 11:36 05/18/21 16:44 05/18/21 23:48 05/19/21 05:25 Glucose (Fingerstick) 188 mg/dL (70-99) 143 mg/dL (70-99) 151 mg/dL (70-99) 87 mg/dL (70-99) Test 05/19/21 05:30 Sodium Level 134 mmol/L (136-145) Potassium Level 3.1 mmol/L (3.5-5.1) Chloride Level 102 mmol/L (98-107) Carbon Dioxide Level 26 mmol/L (21-32) Anion Gap 6 (6-14) Blood Urea Nitrogen 36 mg/dL (8-26) Creatinine 2.8 mg/dL (0.7-1.3) Estimated GFR (Cockcroft-Gault) 26.9 Glucose Level 92 mg/dL (70-99) Calcium Level 8.3 mg/dL (8.5-10.1) Assessment and Plan Assessmemt and Plan Problems Medical Problems: (1) Elevated troponin Status: Acute (2) Person under investigation for COVID-19 Status: Acute (3) Pulmonary edema Status: Acute Comment Review of Relevant I have reviewed the following items juanita (where applicable) has been applied. Medications: Current Medications Medications (Trade) Dose Ordered Sig/Jodie Route PRN Reason Start Time Stop Time Status Last Admin Dose Admin Potassium Bicarbonate (Potassium Effervescent Tablet) 40 meq 1X ONCE PO 05/19/21 08:30 05/19/21 08:31 DC 05/19/21 08:50 Justifications for Admission General Conditions Altered mental status?: Yes Justification of admission: Patient has tachycardia (> 100 beats per minute) or hypotension (SBP < 90 mm Hg) leading to inadequate systemic perfusion as indicated by severe/persistent altered mental status. Other Justification BRIAN ERNST MD May 19, 2021 11:23
--- NOTE | 2021-05-19 13:02 | PDOC ---
[facility] PROGRESS NOTE Reason for Follow-up OP dysphagia/PEG? Subjective Restarted on tube feedings; large emesis just before I saw. Objective Nurses say no residual when last checked. Has stools. Physical Exam Lungs coarse. RRR Abdomen distended, firm. Review of Relevant I have reviewed the following items juanita (where applicable) has been applied. Labs Laboratory Tests Test 05/17/21 17:56 05/17/21 18:30 05/18/21 05:15 05/18/21 05:19 Glucose (Fingerstick) 192 mg/dL (70-99) 135 mg/dL (70-99) Prothrombin Time 13.3 SEC (11.7-14.0) Prothromb Time International Ratio 1.0 (0.8-1.1) White Blood Count 12.9 x10^3/uL (4.0-11.0) Red Blood Count 3.27 x10^6/uL (4.30-5.70) Hemoglobin 8.8 g/dL (13.0-17.5) Hematocrit 26.8 % (39.0-53.0) Mean Corpuscular Volume 82 fL (79-100) Mean Corpuscular Hemoglobin 27 pg (25-35) Mean Corpuscular Hemoglobin Concent 33 g/dL (31-37) Red Cell Distribution Width 16.6 % (11.5-14.5) Platelet Count 190 x10^3/uL (140-400) Neutrophils (%) (Auto) 69 % (31-73) Lymphocytes (%) (Auto) 19 % (24-48) Monocytes (%) (Auto) 9 % (0-9) Eosinophils (%) (Auto) 2 % (0-3) Basophils (%) (Auto) 1 % (0-3) Neutrophils # (Auto) 8.9 x10^3/uL (1.8-7.7) Lymphocytes # (Auto) 2.5 x10^3/uL (1.0-4.8) Monocytes # (Auto) 1.2 x10^3/uL (0.0-1.1) Eosinophils # (Auto) 0.2 x10^3/uL (0.0-0.7) Basophils # (Auto) 0.1 x10^3/uL (0.0-0.2) Sodium Level 130 mmol/L (136-145) Potassium Level 3.5 mmol/L (3.5-5.1) Chloride Level 97 mmol/L (98-107) Carbon Dioxide Level 25 mmol/L (21-32) Anion Gap 8 (6-14) Blood Urea Nitrogen 36 mg/dL (8-26) Creatinine 2.9 mg/dL (0.7-1.3) Estimated GFR (Cockcroft-Gault) 25.9 Glucose Level 144 mg/dL (70-99) Calcium Level 8.8 mg/dL (8.5-10.1) Phosphorus Level 4.4 mg/dL (2.6-4.7) Magnesium Level 2.1 mg/dL (1.8-2.4) Test 05/18/21 07:18 05/18/21 11:36 05/18/21 16:44 05/18/21 23:48 O2 Saturation 93 % (92-99) Arterial Blood pH 7.45 (7.35-7.45) Arterial Blood pCO2 at Patient Temp 36 mmHg (35-46) Arterial Blood pO2 at Patient Temp 67 mmHg (65-108) Arterial Blood HCO3 24 mmol/L (21-28) Arterial Blood Base Excess 1 mmol/L (-3-3) FiO2 40 Glucose (Fingerstick) 188 mg/dL (70-99) 143 mg/dL (70-99) 151 mg/dL (70-99) Test 05/19/21 05:25 05/19/21 05:30 05/19/21 11:20 Glucose (Fingerstick) 87 mg/dL (70-99) 108 mg/dL (70-99) Sodium Level 134 mmol/L (136-145) Potassium Level 3.1 mmol/L (3.5-5.1) Chloride Level 102 mmol/L (98-107) Carbon Dioxide Level 26 mmol/L (21-32) Anion Gap 6 (6-14) Blood Urea Nitrogen 36 mg/dL (8-26) Creatinine 2.8 mg/dL (0.7-1.3) Estimated GFR (Cockcroft-Gault) 26.9 Glucose Level 92 mg/dL (70-99) Calcium Level 8.3 mg/dL (8.5-10.1) Laboratory Tests Test 05/18/21 16:44 05/18/21 23:48 05/19/21 05:25 05/19/21 05:30 Glucose (Fingerstick) 143 mg/dL (70-99) 151 mg/dL (70-99) 87 mg/dL (70-99) Sodium Level 134 mmol/L (136-145) Potassium Level 3.1 mmol/L (3.5-5.1) Chloride Level 102 mmol/L (98-107) Carbon Dioxide Level 26 mmol/L (21-32) Anion Gap 6 (6-14) Blood Urea Nitrogen 36 mg/dL (8-26) Creatinine 2.8 mg/dL (0.7-1.3) Estimated GFR (Cockcroft-Gault) 26.9 Glucose Level 92 mg/dL (70-99) Calcium Level 8.3 mg/dL (8.5-10.1) Test 05/19/21 11:20 Glucose (Fingerstick) 108 mg/dL (70-99) Microbiology 05/11/21 Gram Stain Evaluation - Final, Complete 05/11/21 Respiratory Culture - Final, Complete 05/04/21 Gram Stain - Final, Complete 05/04/21 Aerobic Culture - Final, Complete 05/04/21 Blood Culture - Final, Complete NO GROWTH AFTER 5 DAYS Vitals/I & O Vital Sign - Last 24 Hours 05/18/21 05/18/21 05/18/21 05/18/21 13:00 13:30 14:00 14:21 Pulse 108 62 108 Resp 26 20 B/P (MAP) 170/82 (111) 113/66 (82) 110/57 (74) 113/66 Pulse Ox 100 100 O2 Delivery Ventilator Ventilator 05/18/21 05/18/21 05/18/21 05/18/21 15:00 15:56 16:00 16:00 Temp 98.5 98.5 Pulse 70 67 Resp 22 20 B/P (MAP) 150/72 (98) 142/66 (91) Pulse Ox 100 100 100 O2 Delivery Ventilator Ventilator Ventilator Mechanical Ventilator 05/18/21 05/18/21 05/18/21 05/18/21 17:00 17:31 17:35 17:35 Pulse 63 65 66 Resp 20 B/P (MAP) 157/66 (96) 142/66 130/63 Pulse Ox 100 100 O2 Delivery Ventilator Ventilator 05/18/21 05/18/21 05/18/21 8/13/21 18:00 19:00 19:45 20:00 Temp 97.7 97.7 Pulse 66 58 61 Resp 20 20 20 B/P (MAP) 167/76 (106) 128/62 (84) 140/62 (88) Pulse Ox 100 100 100 O2 Delivery Ventilator Ventilator Mechanical Ventilator Ventilator 05/18/21 05/18/21 05/18/21 05/18/21 20:19 20:50 21:00 22:00 Pulse 61 56 54 Resp 20 20 B/P (MAP) 176/71 129/61 (83) 125/60 (81) Pulse Ox 100 100 100 O2 Delivery Ventilator Ventilator Ventilator 05/18/21 05/18/21 05/18/21 05/18/21 23:00 23:17 23:34 23:47 Pulse 62 73 Resp 20 B/P (MAP) 160/80 (106) 153/68 Pulse Ox 100 100 100 O2 Delivery Ventilator Ventilator Ventilator 05/19/21 05/19/21 05/19/21 05/19/21 00:00 00:00 01:00 02:00 Temp 98.4 98.4 Pulse 53 53 55 Resp 20 20 20 B/P (MAP) 114/55 (74) 109/53 (71) 141/61 (87) Pulse Ox 100 100 100 O2 Delivery Mechanical Ventilator Ventilator Ventilator Ventilator 05/19/21 05/19/21 05/19/21 05/19/21 03:00 03:23 03:30 04:00 Temp 98.1 98.1 Pulse 73 54 Resp 20 20 B/P (MAP) 166/76 (106) 129/60 (83) Pulse Ox 100 100 100 O2 Delivery Ventilator Ventilator Mechanical Ventilator Ventilator 05/19/21 05/19/21 05/19/21 05/19/21 05:00 05:34 06:00 07:00 Pulse 51 70 67 115 Resp 20 20 20 B/P (MAP) 118/57 (77) 157/64 168/79 (108) 173/82 (112) Pulse Ox 100 100 100 O2 Delivery Ventilator Ventilator Ventilator 05/19/21 05/19/21 05/19/21 05/19/21 07:41 08:00 08:00 08:14 Temp 99.3 99.3 Pulse 72 Resp 20 B/P (MAP) 158/79 (105) Pulse Ox 100 100 100 O2 Delivery Ventilator Ventilator Mechanical Ventilator Ventilator 05/19/21 05/19/21 05/19/21 05/19/21 08:51 08:51 08:52 09:00 Pulse 105 105 105 106 Resp 18 B/P (MAP) 174/78 174/78 174/78 174/78 (110) Pulse Ox 100 O2 Delivery Ventilator 05/19/21 05/19/21 05/19/21 05/19/21 09:27 10:00 11:00 11:03 Pulse 98 84 Resp 22 27 B/P (MAP) 140/61 (87) 144/73 (96) Pulse Ox 100 100 97 100 O2 Delivery Ventilator Ventilator Ventilator Ventilator 05/19/21 05/19/21 05/19/21 05/19/21 11:17 11:21 12:00 12:00 Temp 98.9 98.9 Pulse 86 89 Resp 27 B/P (MAP) 152/70 168/77 (107) Pulse Ox 100 98 O2 Delivery Ventilator Ventilator Mechanical Ventilator Intake and Output 05/18/21 05/18/21 05/19/21 15:00 23:00 07:00 Intake Total 350 ml 2826 ml 2567.4 ml Output Total 575 ml 575 ml 475 ml Balance -225 ml 2251 ml 2092.4 ml Problem List Problems Medical Problems: (1) Elevated troponin Status: Acute (2) Person under investigation for COVID-19 Status: Acute (3) Pulmonary edema Status: Acute Assessment OP dysphagia; reluctant to do PEG with continued vomiting. With normal residuals, more distal issue? Plan of Care Note Hold tube feeding. Check KUB. Justicifation of Admission Dx: Justifications for Admission: Justification of Admission Dx: Yes Aspiration Pneumonia: Hemodynamic Instability CLINT PRICE MD May 19, 2021 13:02
--- NOTE | 2021-05-19 14:14 | RAD ---
One view abdomen pelvis KUB HISTORY: Vomiting of tube feeding Supine AP lower abdomen pelvis obtained as a KUB. COMPARISON: May 16, 2021 There is multiple dilated air-filled loops of bowel which appears to be large and small bowel. There is an enteric tube with its tip in the distal stomach. There is no obvious free air on this supine vi ew. IMPRESSION: Abnormal bowel gas pattern appears worse and is likely an ileus. A distal partial small bowel obstruc tion is felt be less likely. Electronically signed by: Jason Barlow III, MD (05/19/2021 2:11 PM) [facility]
--- NOTE | 2021-05-19 15:18 | NUR ---
Pt had another large amount of emesis around [address] Hauser was here to see the pt. Instructed to hold tube feed and to get a KUB. NG placed to LIS. Residuals checked at 0800 was 15ml and 0ml at noon.
[2021-05-19] MEDS: ATORVASTATIN CALCIUM 40 MG TABLET. PO SCH (20:05)
[2021-05-19] MEDS: MONTELUKAST SODIUM 10 MG TABLET. PO SCH (20:05)
[2021-05-19] MEDS: INSULIN GLARGINE SYRINGE. SQ SCH (20:05)
[2021-05-20] VITALS (25 sets, daily range): BP systolic 107–178; BP diastolic 55–98
[2021-05-20] MEDS: DEXMEDETOMIDINE 400 MCG in IV NORMAL SALINE 100ML 96 ML IV PRN ×8 (01:39→22:25)
[2021-05-20] MEDS: INSULIN LISPRO 300 UNITS/3 ML VIAL. SQ SCH ×4 (05:32→23:47)
[2021-05-20] MEDS: METOPROLOL IV PUSH 5 MG/5 ML VIAL. IVP SCH ×5 (05:34→23:47)
[2021-05-20] MEDS: HEPARIN for SUB-Q USE 5,000 UNIT/ML VIAL. SQ SCH ×3 (05:35→21:04)
[2021-05-20 06:12] LABS: CALCIUM 8.6 mg/dL (8.5-10.1); CREATININE 2.6 mg/dL (0.7-1.3); GFR 29.3; MAGNESIUM 1.9 mg/dL (1.8-2.4); PHOSPHORUS 4.3 mg/dL (2.6-4.7); POTASSIUM 3.2 mmol/L (3.5-5.1)
[2021-05-20 07:35] LABS: HEMATOCRIT 23.5 % (39.0-53.0); HEMOGLOBIN 7.6 g/dL (13.0-17.5); RED BLOOD COUNT 2.85 x10^6/uL (4.30-5.70); RED CELL DISTRIBUTION WIDTH 16.4 % (11.5-14.5); WHITE BLOOD COUNT 16.8 x10^3/uL (4.0-11.0)
[2021-05-20] MEDS: ASPIRIN CHEWABLE 81 MG TABLET. PO SCH (08:00)
[2021-05-20] MEDS: hydrALAZINE 25 MG TABLET PO SCH ×4 (09:00→21:00)
[2021-05-20] MEDS: AMIODARONE HCL 200 MG TABLET. PO SCH (09:00)
[2021-05-20] MEDS: NYSTATIN TOPICAL POWDER 15GM BOTTLE. TP SCH ×2 (09:00→21:04)
--- NOTE | 2021-05-20 09:00 | PDOC ---
PULMONARY PROGRESS NOTES DATE: 05/20/21 TIME: 08:58 Subjective Remains on ventilatory support 40%/peep of 5 Patient had 3 hours of CPAP trial yesterday. Patient then developed atrial fibrillation with rapid ventricular response and was rested back on assist control. Vitals Vital Signs Date Time Temp Pulse Resp B/P (MAP) Pulse Ox O2 Delivery O2 Flow Rate FiO2 05/20/21 08:00 98.3 74 20 152/65 (94) 100 Ventilator 98.3 Comments Awake and follows some commands. No obvious respiratory distress HEENT: Other (Trachea midline) Lungs: Clear Cardiovascular: S1, S2 Abdomen: Soft Extremities: No Edema Labs Laboratory Tests Test 05/18/21 11:36 05/18/21 16:44 05/18/21 23:48 05/19/21 05:25 Glucose (Fingerstick) 188 mg/dL (70-99) 143 mg/dL (70-99) 151 mg/dL (70-99) 87 mg/dL (70-99) Test 05/19/21 05:30 05/19/21 11:20 05/19/21 17:07 05/19/21 20:01 Sodium Level 134 mmol/L (136-145) Potassium Level 3.1 mmol/L (3.5-5.1) Chloride Level 102 mmol/L (98-107) Carbon Dioxide Level 26 mmol/L (21-32) Anion Gap 6 (6-14) Blood Urea Nitrogen 36 mg/dL (8-26) Creatinine 2.8 mg/dL (0.7-1.3) Estimated GFR (Cockcroft-Gault) 26.9 Glucose Level 92 mg/dL (70-99) Calcium Level 8.3 mg/dL (8.5-10.1) Glucose (Fingerstick) 108 mg/dL (70-99) 131 mg/dL (70-99) 103 mg/dL (70-99) Test 05/19/21 23:44 05/20/21 05:27 05/20/21 05:30 Glucose (Fingerstick) 105 mg/dL (70-99) 121 mg/dL (70-99) White Blood Count 16.8 x10^3/uL (4.0-11.0) Red Blood Count 2.85 x10^6/uL (4.30-5.70) Hemoglobin 7.6 g/dL (13.0-17.5) Hematocrit 23.5 % (39.0-53.0) Mean Corpuscular Volume 83 fL (79-100) Mean Corpuscular Hemoglobin 27 pg (25-35) Mean Corpuscular Hemoglobin Concent 32 g/dL (31-37) Red Cell Distribution Width 16.4 % (11.5-14.5) Platelet Count 153 x10^3/uL (140-400) Sodium Level 138 mmol/L (136-145) Potassium Level 3.2 mmol/L (3.5-5.1) Chloride Level 103 mmol/L (98-107) Carbon Dioxide Level 21 mmol/L (21-32) Anion Gap 14 (6-14) Blood Urea Nitrogen 35 mg/dL (8-26) Creatinine 2.6 mg/dL (0.7-1.3) Estimated GFR (Cockcroft-Gault) 29.3 Glucose Level 127 mg/dL (70-99) Calcium Level 8.6 mg/dL (8.5-10.1) Phosphorus Level 4.3 mg/dL (2.6-4.7) Magnesium Level 1.9 mg/dL (1.8-2.4) Laboratory Tests Test 05/19/21 11:20 05/19/21 17:07 05/19/21 20:01 05/19/21 23:44 Glucose (Fingerstick) 108 mg/dL (70-99) 131 mg/dL (70-99) 103 mg/dL (70-99) 105 mg/dL (70-99) Test 05/20/21 05:27 05/20/21 05:30 Glucose (Fingerstick) 121 mg/dL (70-99) White Blood Count 16.8 x10^3/uL (4.0-11.0) Red Blood Count 2.85 x10^6/uL (4.30-5.70) Hemoglobin 7.6 g/dL (13.0-17.5) Hematocrit 23.5 % (39.0-53.0) Mean Corpuscular Volume 83 fL (79-100) Mean Corpuscular Hemoglobin 27 pg (25-35) Mean Corpuscular Hemoglobin Concent 32 g/dL (31-37) Red Cell Distribution Width 16.4 % (11.5-14.5) Platelet Count 153 x10^3/uL (140-400) Sodium Level 138 mmol/L (136-145) Potassium Level 3.2 mmol/L (3.5-5.1) Chloride Level 103 mmol/L (98-107) Carbon Dioxide Level 21 mmol/L (21-32) Anion Gap 14 (6-14) Blood Urea Nitrogen 35 mg/dL (8-26) Creatinine 2.6 mg/dL (0.7-1.3) Estimated GFR (Cockcroft-Gault) 29.3 Glucose Level 127 mg/dL (70-99) Calcium Level 8.6 mg/dL (8.5-10.1) Phosphorus Level 4.3 mg/dL (2.6-4.7) Magnesium Level 1.9 mg/dL (1.8-2.4) Medications Active Scripts Medications Dose Route/Sig Max Daily Dose Days Date Category Glyburide 2.5 Mg Tablet 1 Tab PO DAILY 04/19/21 Rx Polyethylene Glycol 3350 17 Gm Powd.pack 17 Gm PO DAILY 04/19/21 Rx Dok (Docusate Sodium) 100 Mg Capsule 100 Mg PO PRN DAILY PRN 04/19/21 Rx Bisacodyl 5 Mg Tablet. 5 Mg PO PRN DAILY PRN 04/19/21 Rx Acetaminophen 325 Mg Tablet 650 Mg PO PRN Q4HRS PRN 04/19/21 Rx Aspirin Ec (Aspirin) 81 Mg Tablet. 81 Mg PO DAILYWBKFT 04/19/21 Rx Hydralazine Hcl 25 Mg Tablet 25 Mg PO QID 04/19/21 Rx Fenofibrate 54 Mg Tablet 1 Tab PO DAILY 04/17/21 Reported Potassium Chloride (Potassium Chloride) 20 Meq Tablet.er 20 Meq PO DAILY 04/17/21 Reported Coreg (Carvedilol) 12.5 Mg Tablet 37.5 Mg PO BIDWMEALS 04/17/21 Reported Rosuvastatin Calcium 40 Mg Tablet 40 Mg PO QHS 04/17/21 Reported Gabapentin (Gabapentin) 100 Mg Capsule 200 Mg PO BID 04/17/21 Reported Montelukast Sodium Tablet (Montelukast Sodium) 10 Mg Tablet 10 Mg PO HS 04/17/21 Reported Protonix (Pantoprazole Sodium) 20 Mg Tablet. 2 Tab PO DAILY 04/17/21 Reported Amlodipine Besylate 5 Mg Tablet 5 Mg PO DAILY 04/17/21 Reported Furosemide 40 Mg Tablet 1 Tab PO DAILY 04/17/21 Reported Proair Hfa Inhaler (Albuterol Sulfate) 8.5 Gm Hfa.aer.ad 2 Puff IH PRN Q4-6HRS PRN 21 04/16/21 Reported Advair 100-50 Diskus (Fluticasone/Salmeterol) 1 Each Disk.w.dev 1 Puff IH BID 04/16/21 Reported Comments Impression . IMPRESSION: 1. Acute hypoxic respiratory failure, multifactorial/COVID-19 viral pneumonia/ARDS, ongoing, intubated 04/25/2021, now status post tracheostomy [address] chest with bilateral diffuse interstitial infiltrates without any significant pleural effusion 3. Leukocytosis, sepsis--improved 4. Non-ST segment elevation [place] 5. History of tobacco use, suspect COPD, unknown FEV1 6. Chronic kidney disease.== Neph neurology following, hemodialysis 7. Metabolic acidosis multifactorial 8. Abnormal chest x-ray 9. Hypoglycemia, continue to monitor--- resolved 10. Hypotension, suspect volume deficit,/possible sepsis--- resolved 11. Fever--improved 12. Anemia--improved 13. Atrial fibrillation with rapid ventricular response, currently rate controlled Plan . Updated 05/20/21 Continue current vent support 20/500/40%/5 proceed with PS trial again today with special attention to heart rate., Follow ABG/CXR--changes as needed Follow ID recs for ABX --continue meropenem Trach care daily and as needed Follow GI recs planned for PEG tube on friday Follow surgery recommendations S/P trach 05/15/2021 Follow nephrology recs-- HD on hold, Monitor hemoglobin--stable-- Follow Cardiology recs--preserved LV function, hypertension, Continue TF for nutritional support DVT/GI PPX:t sq heparin D/W RN and RT Pt. is DNR Social work for DC planning LTACH, planned to [facility] after PEG is placed cct 30 min Updated 05/19/21 Continue current vent support 20/500/40%/5 proceed with PS trial, following some commands. Follow ABG/CXR--changes as needed Follow ID recs for ABX --continue meropenem Trach care daily and as needed Follow GI recs planned for PEG tube on friday Follow surgery recommendations S/P trach 05/15/2021 Follow nephrology recs-- HD on hold, Monitor hemoglobin--stable-- Follow Cardiology recs--preserved LV function, hypertension, Continue TF for nutritional support DVT/GI PPX:restart sq heparin D/W RN and RT Pt. is DNR Social work for DC planning LTACH, planned to [facility] to [facility] next week after PEG is placed cct 30 min Updated 05/18/21 Continue current vent support 20/500/40%/5 DC sedation, once awake proceed with PS trial Follow ABG/CXR--changes as needed Follow ID recs for ABX --continue meropenem Trach care daily and as needed Follow GI recs planned for PEG tube on friday Follow surgery recommendations S/P trach 05/15/2021 Follow nephrology recs-- HD on hold, Monitor hemoglobin--stable-- Follow Cardiology recs--preserved LV function, hypertension, Continue TF for nutritional support DVT/GI PPX:restart sq heparin D/W RN and RT Pt. is DNR Social work for DC planning LTACH, planned to [facility] to [facility] on friday cct 30 min Updated 05/17/21 Continue current vent support 20/500/40%/5 trach care DC sedation, precedex gtt may remain, once awake proceed with PS trial Follow ABG/CXR--changes as needed Follow ID recs for ABX --continue meropenem and Zyvox Trach care daily and as needed Follow surgery recommendations S/P 05/15/2021 Follow nephrology recs-- HD on hold, last HD was friday Monitor hemoglobin--stable-- monitor with restart DVT PPX Follow Cardiology recs--preserved LV function, hypertension, cardene gtt Continue TF for nutritional support DVT/GI PPX:restart sq heparin-- monitor D/W RN and RT Pt. is DNR Social work for DC planning LTACH, planned to [facility] to [facility] on friday cct 30 min Updated 05/16/21 Continue current vent support 20/500/40%/5 Will reduce sedation, and start with pressure support trials in the morning Follow ABG/CXR--changes as needed Follow ID recs for ABX --continue meropenem and Zyvox Trach care daily and as needed Follow surgery recommendations plan for tracheostomy 05/15/2021 Follow nephrology recs-- HD Monitor hemoglobin--stable Follow Cardiology recs--preserved LV function, hypertension, cardene gtt Continue TF for nutritional support DVT/GI PPX:no AC 2/2 anemia D/W RN and RT Pt. is DNR Social work for DC planning LTACH cct 30 min Updated 05/15/21 Continue current vent support 20/500/40%/5 Follow ABG/CXR--changes as needed Follow ID recs for ABX --Continue cefepime, Zyvox Follow surgery recommendations plan for tracheostomy 05/15/2021 Follow nephrology recs-- HD --hemodialysis, Monitor hemoglobin Follow Cardiology recs--preserved LV function, hypertension, back on cardene gtt Continue TF for nutritional support --on hold for procedure DVT/GI PPX:no AC 2/2 anemia D/W RN and RT Pt. is DNR Addendum;. Patient was reevaluated after tracheostomy. No initial complications. No bleeding. We will keep him sedated for next 24 hours and restart weaning process from tomorrow. cct 30 min JONES FISHMAN MD May 20, 2021 09:00
[2021-05-20] MEDS: MEROPENEM 500 MG in IV NORMAL SALINE 50ML 50 ML IV SCH ×2 (09:51→21:02)
--- NOTE | 2021-05-20 10:27 | PDOC ---
Renal-Progress Notes Subjective Notes Notes ON THE VENT History of Present Illness Hx of present illness NO ACUTE CHANGES Vitals Vitals Vital Signs Date Time Temp Pulse Resp B/P (MAP) Pulse Ox O2 Delivery O2 Flow Rate FiO2 05/20/21 09:39 100 05/20/21 09:36 Ventilator 05/20/21 09:00 73 20 147/66 (93) 05/20/21 08:00 98.3 98.3 Weight Weight [ ] I.O. Intake and Output Intake and Output 05/20/21 07:00 Intake Total 5487 ml Output Total 2215 ml Balance 3272 ml IV Total 4176 ml Tube Feeding 1111 ml Other 200 ml Output Urine Total 1815 ml Gastric Drainage Total 400 ml Labs Labs Laboratory Tests Test 05/19/21 11:20 05/19/21 17:07 05/19/21 20:01 05/19/21 23:44 Glucose (Fingerstick) 108 mg/dL (70-99) 131 mg/dL (70-99) 103 mg/dL (70-99) 105 mg/dL (70-99) Test 05/20/21 05:27 05/20/21 05:30 Glucose (Fingerstick) 121 mg/dL (70-99) White Blood Count 16.8 x10^3/uL (4.0-11.0) Red Blood Count 2.85 x10^6/uL (4.30-5.70) Hemoglobin 7.6 g/dL (13.0-17.5) Hematocrit 23.5 % (39.0-53.0) Mean Corpuscular Volume 83 fL (79-100) Mean Corpuscular Hemoglobin 27 pg (25-35) Mean Corpuscular Hemoglobin Concent 32 g/dL (31-37) Red Cell Distribution Width 16.4 % (11.5-14.5) Platelet Count 153 x10^3/uL (140-400) Sodium Level 138 mmol/L (136-145) Potassium Level 3.2 mmol/L (3.5-5.1) Chloride Level 103 mmol/L (98-107) Carbon Dioxide Level 21 mmol/L (21-32) Anion Gap 14 (6-14) Blood Urea Nitrogen 35 mg/dL (8-26) Creatinine 2.6 mg/dL (0.7-1.3) Estimated GFR (Cockcroft-Gault) 29.3 Glucose Level 127 mg/dL (70-99) Calcium Level 8.6 mg/dL (8.5-10.1) Phosphorus Level 4.3 mg/dL (2.6-4.7) Magnesium Level 1.9 mg/dL (1.8-2.4) Micro Micro Microbiology 05/11/21 Gram Stain Evaluation - Final, Complete 05/11/21 Respiratory Culture - Final, Complete 05/04/21 Gram Stain - Final, Complete 05/04/21 Aerobic Culture - Final, Complete 05/04/21 Blood Culture - Final, Complete NO GROWTH AFTER 5 DAYS Review of Systems Constitutional: yes: unresponsive, other (UNABLE TO OBTAIN) Physical Exam General Appearance: other (ON THE VENT) Respiratory: decreased breath sounds Heart: S1S2 Abdomen: bowel sounds present Genitourinary: bladder flat Extremities: atrophy Neurology: other (sedated) Musculoskeletal: Other Assessment Assessment IMP HYPONATREMIA-IMPROVED NA OF 130 HYPOKALEMIA [id number] IMPROVING -CR STABLE AT 2.8 CKD - SUSPECT STAGE 3 ACUTE HYPOXIC RESP FAILURE-FIO2 INCREASED COVID 19 PNEUMONIA MET ACIDOSIS-BETTER LEUCOCYTOSIS ANEMIA S/P TRACH DIARRHEA PLAN REPLACE MORE K REMAINS CRITICALLY ILL VENT SUPPORT-FIO2 OF 40% CONT NEPRO TF PRESSORS NEEDED HD LAST ON SAT 08-07 CONT TO HOLD HD MAINTAIN HD LINE CONT TO MONITOR FOR RENAL RECOVERY LASIX PRN CONT IVF LTAC TRANSFER PENDING WILL FOLLOW JEANINE NEWTON MD May 20, 2021 10:26
[2021-05-20] MEDS: PANTOPRAZOLE IV PUSH 40 MG VIAL. IVP SCH (11:37)
[2021-05-20] MEDS: ERYTHROMYCIN 0.5% OPHTH OINTMENT 1GM TUBE. OU SCH ×2 (11:38→21:02)
--- NOTE | 2021-05-20 11:41 | PDOC ---
[employer] PROGRESS NOTE Date of Service DOS: DATE: 05/20/21 TIME: 11:40 Chief Complaint Chief Complaint Respiratory failure requiring intubation COVID-19 Acute MO A. fib SIRS Hypertension with hypertensive urgency Hyperlipidemia CKD Diabetes History of bilateral subclavian stenosis History of marijuana use Severe protein calorie malnutrition Trach placed on May 15 GI consulted for PEG evaluation --> patient with a lot of vomiting yesterday thus current NG tube to low intermittent suction History of Present Illness History of Present Illness 05/20/21 Patient seen and examined at bedside. Again had multiple bouts of vomiting yesterday. GI continuing to follow for PEG evaluation although on hold right now due to persistent vomiting. Leukocytosis does persist but patient afebrile. Plan of care discussed with bedside RN 05/19/21 Patient seen and examined at bedside. Apparently had a fair bit of vomiting overnight. GI following for PEG evaluation. Otherwise patient remained stable. Plan of care discussed with bedside nurse. 05/18/21 Patient seen and examined at bedside. Attempting to increase tube feeds, GI consulted for PEG evaluation. Otherwise no major clinical changes. Continue to wean sedation. Plan of care discussed with bedside nurse. 05/17/21 Patient seen and examined at bedside. Attempting to wean sedation. Patient with some diarrhea. Per infectious disease will give erythromycin eye ointment for eye lesions. Nephro and pulm also following. Continue sedation weaning, plan of care discussed with bedside nurse. 05/16/21 Patient seen and examined at bedside. Underwent tracheostomy yesterday today tolerated well. When seen this morning patient is still notably sedated respiratory status is stable. Continue antibiotics and supportive measures. Plan of care discussed with bedside nurse. Attempt to wean sedation. 05/15/21 Patient seen and examined at bedside Remains intubated and sedated planning for tracheostomy today Continue current respiratory support; continue antibiotics, continue sedation Follow recommendations of pulmonary, renal, and infectious disease Plan of care discussed with bedside nurse Will follow up with patient after surgery today 05/14/21 Patient seen and examined at bedside Remains intubated and sedated planning for tracheostomy tomorrow Continue current respiratory support; continue antibiotics, continue sedation Follow recommendations of pulmonary, renal, and infectious disease Plan of care discussed with bedside nurse 05/13/2021 did not tolerate sedation vacation 05/11/2021, profoundly hypertensive ABG/CXR--changes as needed Continue iv cefepime , add zyvox, sputum culture VENT [id number]%, 5 of PEEP Mild pulmonary edema with new small right pleural effusion and basilar opacities now on cardene gtt prn Patient seen and examined in the [facility] [address] ICU remains mechanically ventilated ILDA on CKD - ATN 2/2 sepsis/ Hypotension,UOP good,on IV Lasix ; requiring dialysis, Sedated with propofol Dex and fentanyl Chart reviewed Discussed with RN He remains critically ill intubated/sedated cont cardene gtt not able to tolerate PS trial 05/06/21 Change central line and send cath tip for cultures. 05-09 C. difficile PCR ADELSO AVILA MD ORDERED: BCULT Procedure Result BLOOD CULTURE Final NO GROWTH AFTER 5 DAYS JONES FISHMAN MD, CHRISTOPHER S MD BLOOD CULTURE Preliminary NO GROWTH AFTER 4 DAYS 37 min cc time 05/12/2021 Continue iv cefepime , add zyvox, sputum culture VENT [id number]%, 5 of PEEP Mild pulmonary edema with new small right pleural effusion and basilar opacities now on cardene gtt prn Patient seen and examined in the [facility] [address] ICU remains mechanically ventilated ILDA on CKD - ATN 2/2 sepsis/ Hypotension,UOP good,on IV Lasix ; requiring dialysis, Sedated with propofol Dex and fentanyl Chart reviewed Discussed with RN He remains critically ill intubated/sedated cont cardene gtt not able to tolerate PS trial 05/06/21 Change central line and send cath tip for cultures. 05-09 C. difficile PCR JONES FISHMAN MD,ADELSO DASILVA MD, MD ORDERED: BCULT Procedure Result BLOOD CULTURE Preliminary NO GROWTH AFTER 2 DAYS - BLOOD CULTURE Preliminary NO GROWTH AFTER 4 DAYS 33 min cc time 05/11/2021 Continue iv cefepime , add zyvox, sputum culture VENT [id number]%, 5 of PEEP Mild pulmonary edema with new small right pleural effusion and basilar opacities now on cardene gtt prn Patient seen and examined in the [facility] [address] ICU remains mechanically ventilated ILDA on CKD - ATN 2/2 sepsis/ Hypotension,UOP good,on IV Lasix ; requiring dialysis, Sedated with propofol Dex and fentanyl Chart reviewed Discussed with RN He remains critically ill intubated/sedated cont cardene gtt not able to tolerate PS trial 05/06/21 Change central line and send cath tip for cultures. 05-09 C. difficile PCR JONES FISHMAN MD,BRIAN AVILA,ADELSO POTTER ORDERED: BCULT Procedure Result BLOOD CULTURE Preliminary NO GROWTH AFTER 2 DAYS BLOOD CULTURE Preliminary NO GROWTH AFTER 4 DAYS 36 min cc time 05/10/2021 VENT [id number]%, 5 of PEEP Mild pulmonary edema with new small right pleural effusion and basilar opacities now on cardene gtt prn Patient seen and examined in the [facility] [address] ICU remains mechanically ventilated ILDA on CKD - ATN 2/2 sepsis/ Hypotension,UOP good,on IV Lasix ; requiring dialysis, Sedated with propofol Dex and fentanyl Chart reviewed Discussed with RN He remains critically ill intubated/sedated cont cardene gtt not able to tolerate PS trial 05/06/21 Change central line and send cath tip for cultures. 05-09 C. difficile PCR JONES FISHMAN MD, CHRISTOPHER S MD SISILLO, SABATO MD ORDERED: BCULT ---- -------- Procedure Result BLOOD CULTURE Preliminary NO GROWTH AFTER 2 DAYS BLOOD CULTURE Preliminary NO GROWTH AFTER 4 DAYS 33 min cc time 05/09/2021 VENT [id number]%, 5 of PEEP Mild pulmonary edema with new small right pleural effusion and basilar opacities now on cardene gtt prn Patient seen and examined in the [facility] remains mechanically ventilated ILDA on CKD - ATN 2/2 sepsis/ Hypotension,UOP good,on IV Lasix ; requiring dialysis, Sedated with propofol Dex and fentanyl Chart reviewed Discussed with RN He remains critically ill intubated/sedated cont cardene gtt not able to tolerate PS trial 05/06/21 Change central line and send cath tip for cultures. 05-09 C. difficile PCR JONES FISHMAN MD, CHRISTOPHER S MD SISILLO, SABATO MD ORDERED: BCULT Procedure Result BLOOD CULTURE Preliminary NO GROWTH AFTER 2 DAYS BLOOD CULTURE Preliminary NO GROWTH AFTER 4 DAYS 37 min cc time 05/08/2021 Currently on 40%, 5 of PEEP now on cardene gtt Patient seen and examined in the [facility] [address] ICU remains mechanically ventilated ILDA on CKD - ATN 2/2 sepsis/ Hypotension,UOP good,on IV Lasix ; requiring dialysis, AC/20/500/40 percent with 5 of PEEP Sedated with propofol Dex and fentanyl Chart reviewed Discussed with RN He remains critically ill intubated/sedated cont cardene gtt not able to tolerate PS trial 05/06/21 JONES FISHMAN MD,ADELSO DASILVA MD, MD ORDERED: BCULT Procedure Result BLOOD CULTURE Preliminary NO GROWTH AFTER 2 DAYS BLOOD CULTURE Preliminary NO GROWTH AFTER 4 DAYS 33 min cc time 05/07/2021 Patient seen and examined in the [facility] [address] ICU He remains mechanically ventilated ILDA on CKD - ATN 2/2 sepsis/ Hypotension,UOP good,on IV Lasix ; requiring dialysis, AC/20/500/40 percent with 5 of PEEP Sedated with propofol Dex and fentanyl Chart reviewed Discussed with RN He remains critically ill intubated/sedated cont cardene gtt not able to tolerate PS trial 05/06/21 JONES FISHMAN MD,ADELSO DASILVA MD, MD ORDERED: BCULT Procedure Result BLOOD CULTURE Preliminary NO GROWTH AFTER 2 DAYS 36 min cc time 05/06/2021 Patient seen and examined in the [facility] [address] ICU He remains mechanically ventilated AC/20/500/40 percent with 5 of PEEP Sedated with propofol Dex and fentanyl Chart reviewed Discussed with RN He remains critically ill 05/05/2020 Patient seen and examined in the [facility] [address] ICU He remains on the vent AC/20/500/40 percent with 5 of PEEP Discussed with RN Chart reviewed Has SCDs in place Nieves to bedside drainage He remains critically ill 05/04/2021 Patient seen and examined in the [facility] [address] ICU Still intubated Sedated with propofol and fentanyl AC/20/500/70 percent with 5 of PEEP On dialysis currently Has SCDs in Nieves to bedside drainage Discussed with RN Chart reviewed 05/03/2021 Patient seen and examined in the [facility] [address] ICU He is still intubated AC/20/500/70 percent with 5 of PEEP Has SCDs in place Nieves to bedside drainage Sedated with fentanyl Versed and propofol Discussed are Chart reviewed Remains critically ill 05/02/2021 Patient seen and examined in the [facility] [address] ICU He is sedated with propofol fentanyl and Versed Ventilator settings as follow AC/20/500/40 percent with 5 of PEEP Has Nieves to bedside drainage Chart reviewed Discussed with RN He remains critically ill 05/01/2021 Patient seen and examined in the [facility] [address] ICU He is still intubated AC/20/500/40 percent with 5 of PEEP In A. fib Sedated with propofol fentanyl and Versed Has a heparin drip Missy with RN Chart reviewed He remains critically 04/30/2020 Patient seen and examined in the [facility] [address] ICU He remains on the vent AC/20/500/40 5% with 5 PEEP Currently on dialysis Has OG feeds running Has a Nieves to bedside drainage Sedated with propofol and fentanyl Reviewed chart Discussed with RN He remains critically ill Mr Cunha is a 75 yo male w/ PMHx CAD, HTN, Hyperlipidemia, subclavian steel syndrome, subclavian stenosis s/p left subclavian sent placement complicated by retroperitoneal hematoma s/p evacuation in 08/2015), asthma, BART, CKD, DM2 who presented from home with home health care noted that he was short of breath and valverde with O2 saturations less than 89% as low as 84% not improved with nasal cannulated oxygen placed on CPAP and brought to ED for further care. He was just discharged from the hospital a week ago on April 19, 2021 for abdominal pain and was going for further cardiac testing with outpatient stress testing scheduled on May 28, 2021. Had echocardiogram April 17, 2021 with normal-appearing EF with moderate concentric LVH no significant valvular abnormalities. WBC 20, Hb 10.7, platelets 268, NA 140, K3.8, BUN 21, CR 2.9, glucose 162, albumin 3, troponin I 1.372, NT proBNP 33,318. EKG appears sinus tachycardia rate of 105 bpm with multiple PACs small ST depressions in lead II and V5. TWI in V6. Chest radiograph with diffuse interstitial and alveolar opacities and ET tube 5.8 cm above the leilani. Due to worsening respiratory status ED physician elected to intubate patient. Seen postintubation. Blood pressure little low after propofol bolus, but improved. Significant white frothy sputum per ET tube. Admitted to ICU for further care 04/29/2021: Afebrile, remains on vent at FiO2 45%, PEEP 5. WBC 20.4. Hemodialysis per nephrology. We will continue treatment with empiric antibi otics, remdesivir, and steroids. Continue heparin infusion and supportive care. Critical care time 30 minutes reviewing chart, review labs, review imaging, discussion with RN. 04/28/2021: Afebrile. FiO2 50%, PEEP 5. Nontunneled HD catheter placed yester day due to worsening kidney function; eGFR 16 (CKD4). Chest x-ray showed unchanged interstitial opacities. Continue empiric antibiotics, steroids, and remdesivir. Continue heparin infusion, and continue to follow cardiology recommendations on new diagnosis of A. fib. Critical care time 30 minutes reviewing chart, review labs, review imaging, discussion with RN. 04/27/2021: Afebrile. On vent with FiO2 50%, PEEP 5. Troponin 2.8 yesterday; probable type II, demand ischemia. New onset A. fib. Continue heparin drip and as needed digoxin, per cardiology. Continue treatment with remdesivir, steroids, and prophylactic antibiotics. CBG 323 this morning; will add basal insulin. Critical care 30 minutes spent reviewing labs, reviewing imaging, reviewing charts, and discussion with RN. 04/26/2021: COVID-19 positive. Febrile overnight that was managed with cooling blankets. On vent with FiO2 50%, PEEP 5. Per cardiology, elevated troponins likely secondary to demand ischemia; continue heparin drip per cardiology. Maintain fluid balance and avoid nephrotoxins. Continue treatment with remdesivir, steroids, and prophylactic antibiotics. 30 minutes critical care time spent reviewing charts, reviewing labs, reviewing imaging, and discussion with RN. 04/25/2021: On vent FiO2 50, PEEP 5. Febrile, T-max 103.3. Patient was initiated on cooling blankets. Procalcitonin 0.13. Continue coverage for hospital-acquired pneumonia with cefepime. MRSA PCR pending. Critical care time 30 minutes spent reviewing charts, reviewing labs, review of imaging, discussion with RN. Vitals/I&O Vitals/I&O: Vital Signs Date Time Temp Pulse Resp B/P (MAP) Pulse Ox O2 Delivery O2 Flow Rate FiO2 05/20/21 11:38 75 149/69 05/20/21 11:28 100 Ventilator 05/20/21 11:00 20 05/20/21 08:00 98.3 98.3 I & O 05/19/21 05/19/21 05/20/21 15:00 23:00 07:00 Intake Total 300 ml 2710 ml 2477 ml Output Total 1050 ml 425 ml 740 ml Balance -750 ml 2285 ml 1737 ml Physical Exam Physical Exam: GENERAL: Well-developed and well-nourished male, intubated, sedated. HEENT: Normocephalic, atraumatic, redness and erythema of both eyes left greater than right ETT and OGT present. NECK: right dialysis catheter present clean,central line changed ( 05/11) HEART: S1, S2. LUNGS: Decreased breath sounds. ABDOMEN: Soft, obese, bowel sounds present. GENITOURINARY: Nieves in place. EXTREMITIES: Edema present. DERMATOLOGIC: Warm, dry, no generalized rash. NEUROLOGIC: Intubated. PICC line clean General: No acute distress, Other (Answering some questions when awake) Heart: Regular rate, Normal S1, Normal S2 Lungs: Clear Abdomen: Normal bowel sounds, Other (ND) Extremities: No clubbing, No cyanosis, Other (Lower extremity edema) Skin: No rashes, No breakdown, No significant lesion Labs Labs: Laboratory Tests Test 05/19/21 17:07 05/19/21 20:01 05/19/21 23:44 05/20/21 05:27 Glucose (Fingerstick) 131 mg/dL (70-99) 103 mg/dL (70-99) 105 mg/dL (70-99) 121 mg/dL (70-99) Test 05/20/21 05:30 05/20/21 11:34 White Blood Count 16.8 x10^3/uL (4.0-11.0) Red Blood Count 2.85 x10^6/uL (4.30-5.70) Hemoglobin 7.6 g/dL (13.0-17.5) Hematocrit 23.5 % (39.0-53.0) Mean Corpuscular Volume 83 fL (79-100) Mean Corpuscular Hemoglobin 27 pg (25-35) Mean Corpuscular Hemoglobin Concent 32 g/dL (31-37) Red Cell Distribution Width 16.4 % (11.5-14.5) Platelet Count 153 x10^3/uL (140-400) Sodium Level 138 mmol/L (136-145) Potassium Level 3.2 mmol/L (3.5-5.1) Chloride Level 103 mmol/L (98-107) Carbon Dioxide Level 21 mmol/L (21-32) Anion Gap 14 (6-14) Blood Urea Nitrogen 35 mg/dL (8-26) Creatinine 2.6 mg/dL (0.7-1.3) Estimated GFR (Cockcroft-Gault) 29.3 Glucose Level 127 mg/dL (70-99) Calcium Level 8.6 mg/dL (8.5-10.1) Phosphorus Level 4.3 mg/dL (2.6-4.7) Magnesium Level 1.9 mg/dL (1.8-2.4) Glucose (Fingerstick) 126 mg/dL (70-99) Assessment and Plan Assessmemt and Plan Problems Medical Problems: (1) Elevated troponin Status: Acute (2) Person under investigation for COVID-19 Status: Acute (3) Pulmonary edema Status: Acute Comment Review of Relevant I have reviewed the following items juanita (where applicable) has been applied. Justifications for Admission General Conditions Altered mental status?: Yes Justification of admission: Patient has tachycardia (> 100 beats per minute) or hypotension (SBP < 90 mm Hg) leading to inadequate systemic perfusion as indicated by severe/persistent altered mental status. Other Justification BRIAN ERNST MD May 20, 2021 11:41
[2021-05-20] MEDS: IV NORMAL SALINE 1000ML BAG 1,000 ML IV SCH ×2 (12:03→21:02)
--- NOTE | 2021-05-20 12:09 | PDOC ---
Infectious Disease Note Subjective: Subjective Pt remains intubated had bouts of vomiting Vital Signs: Vital Signs Vital Signs Date Time Temp Pulse Resp B/P (MAP) Pulse Ox O2 Delivery O2 Flow Rate FiO2 05/20/21 11:39 75 149/69 05/20/21 11:28 100 Ventilator 05/20/21 11:00 20 05/20/21 08:00 98.3 98.3 Physical Exam: PHYSICAL EXAM GENERAL: Well-developed and well-nourished male, intubated, HEENT: Normocephalic, atraumatic, redness and erythema of both eyes left greater than right ETT and OGT present. NECK: right dialysis catheter present clean,central line changed ( 05/11) HEART: S1, S2. LUNGS: Decreased breath sounds. ABDOMEN: distended,hypoactive BS GENITOURINARY: Nieves in place. EXTREMITIES: Edema present. DERMATOLOGIC: Warm, dry, no generalized rash. NEUROLOGIC: Intubated. PICC line clean Medications: Inpatient Meds: Medications reviewed. Labs: Lab Laboratory Tests Test 05/19/21 17:07 05/19/21 20:01 05/19/21 23:44 05/20/21 05:27 Glucose (Fingerstick) 131 mg/dL (70-99) 103 mg/dL (70-99) 105 mg/dL (70-99) 121 mg/dL (70-99) Test 05/20/21 05:30 05/20/21 11:34 White Blood Count 16.8 x10^3/uL (4.0-11.0) Red Blood Count 2.85 x10^6/uL (4.30-5.70) Hemoglobin 7.6 g/dL (13.0-17.5) Hematocrit 23.5 % (39.0-53.0) Mean Corpuscular Volume 83 fL (79-100) Mean Corpuscular Hemoglobin 27 pg (25-35) Mean Corpuscular Hemoglobin Concent 32 g/dL (31-37) Red Cell Distribution Width 16.4 % (11.5-14.5) Platelet Count 153 x10^3/uL (140-400) Sodium Level 138 mmol/L (136-145) Potassium Level 3.2 mmol/L (3.5-5.1) Chloride Level 103 mmol/L (98-107) Carbon Dioxide Level 21 mmol/L (21-32) Anion Gap 14 (6-14) Blood Urea Nitrogen 35 mg/dL (8-26) Creatinine 2.6 mg/dL (0.7-1.3) Estimated GFR (Cockcroft-Gault) 29.3 Glucose Level 127 mg/dL (70-99) Calcium Level 8.6 mg/dL (8.5-10.1) Phosphorus Level 4.3 mg/dL (2.6-4.7) Magnesium Level 1.9 mg/dL (1.8-2.4) Glucose (Fingerstick) 126 mg/dL (70-99) Objective: Assessment: 1. Febrile illness could be healthcare-associated infection,resolved 2. Leukocytosis, was on steroids 3. COVID-19 pneumonia. 4. Acute hypoxic respiratory failure status post intubation. 5. Congestive heart failure, acute on chronic. 6. Acute kidney injury on chronic kidney disease on hemodialysis. 7. Diabetes mellitus 2. 8. Atrial fibrillation. 9. Anemia. 10. Protein-calorie malnutrition. 11. Hypertention 12.Hyponatremia 13. Ileus, Bowel obstruction 14. TF on hold, on Parenteral nutrition Plan: Plan of Care WBC increaseing ,likely from ileus 1. Continue Meropenem renal dosing as needed,pharmacy to assist off Zyvox. Maintain aspiration precautions. 2. Follow-up labs and cultures 3. Central line changed on 05/11 4. C. difficile PCR negative 5. Continue supportive care. 6. Critically ill. Local eye care erythromycin eye ointment Discussed with nursing staff ALAYNA RIVERO MD May 20, 2021 12:09
--- NOTE | 2021-05-20 12:38 | PDOC ---
G I PROGRESS NOTE Subjective Sedated on ventilator. Objective Fair amount out NG. Physical Exam Lungs clear anteriorly. RRR Abdomen distended, silent. Review of Relevant I have reviewed the following items juanita (where applicable) has been applied. Labs Laboratory Tests Test 05/18/21 16:44 05/18/21 23:48 05/19/21 05:25 05/19/21 05:30 Glucose (Fingerstick) 143 mg/dL (70-99) 151 mg/dL (70-99) 87 mg/dL (70-99) Sodium Level 134 mmol/L (136-145) Potassium Level 3.1 mmol/L (3.5-5.1) Chloride Level 102 mmol/L (98-107) Carbon Dioxide Level 26 mmol/L (21-32) Anion Gap 6 (6-14) Blood Urea Nitrogen 36 mg/dL (8-26) Creatinine 2.8 mg/dL (0.7-1.3) Estimated GFR (Cockcroft-Gault) 26.9 Glucose Level 92 mg/dL (70-99) Calcium Level 8.3 mg/dL (8.5-10.1) Test 05/19/21 11:20 05/19/21 17:07 05/19/21 20:01 05/19/21 23:44 Glucose (Fingerstick) 108 mg/dL (70-99) 131 mg/dL (70-99) 103 mg/dL (70-99) 105 mg/dL (70-99) Test 05/20/21 05:27 05/20/21 05:30 05/20/21 11:34 Glucose (Fingerstick) 121 mg/dL (70-99) 126 mg/dL (70-99) White Blood Count 16.8 x10^3/uL (4.0-11.0) Red Blood Count 2.85 x10^6/uL (4.30-5.70) Hemoglobin 7.6 g/dL (13.0-17.5) Hematocrit 23.5 % (39.0-53.0) Mean Corpuscular Volume 83 fL (79-100) Mean Corpuscular Hemoglobin 27 pg (25-35) Mean Corpuscular Hemoglobin Concent 32 g/dL (31-37) Red Cell Distribution Width 16.4 % (11.5-14.5) Platelet Count 153 x10^3/uL (140-400) Sodium Level 138 mmol/L (136-145) Potassium Level 3.2 mmol/L (3.5-5.1) Chloride Level 103 mmol/L (98-107) Carbon Dioxide Level 21 mmol/L (21-32) Anion Gap 14 (6-14) Blood Urea Nitrogen 35 mg/dL (8-26) Creatinine 2.6 mg/dL (0.7-1.3) Estimated GFR (Cockcroft-Gault) 29.3 Glucose Level 127 mg/dL (70-99) Calcium Level 8.6 mg/dL (8.5-10.1) Phosphorus Level 4.3 mg/dL (2.6-4.7) Magnesium Level 1.9 mg/dL (1.8-2.4) Laboratory Tests Test 05/19/21 17:07 05/19/21 20:01 05/19/21 23:44 05/20/21 05:27 Glucose (Fingerstick) 131 mg/dL (70-99) 103 mg/dL (70-99) 105 mg/dL (70-99) 121 mg/dL (70-99) Test 05/20/21 05:30 05/20/21 11:34 White Blood Count 16.8 x10^3/uL (4.0-11.0) Red Blood Count 2.85 x10^6/uL (4.30-5.70) Hemoglobin 7.6 g/dL (13.0-17.5) Hematocrit 23.5 % (39.0-53.0) Mean Corpuscular Volume 83 fL (79-100) Mean Corpuscular Hemoglobin 27 pg (25-35) Mean Corpuscular Hemoglobin Concent 32 g/dL (31-37) Red Cell Distribution Width 16.4 % (11.5-14.5) Platelet Count 153 x10^3/uL (140-400) Sodium Level 138 mmol/L (136-145) Potassium Level 3.2 mmol/L (3.5-5.1) Chloride Level 103 mmol/L (98-107) Carbon Dioxide Level 21 mmol/L (21-32) Anion Gap 14 (6-14) Blood Urea Nitrogen 35 mg/dL (8-26) Creatinine 2.6 mg/dL (0.7-1.3) Estimated GFR (Cockcroft-Gault) 29.3 Glucose Level 127 mg/dL (70-99) Calcium Level 8.6 mg/dL (8.5-10.1) Phosphorus Level 4.3 mg/dL (2.6-4.7) Magnesium Level 1.9 mg/dL (1.8-2.4) Glucose (Fingerstick) 126 mg/dL (70-99) Microbiology 05/11/21 Gram Stain Evaluation - Final, Complete 05/11/21 Respiratory Culture - Final, Complete 05/04/21 Gram Stain - Final, Complete 05/04/21 Aerobic Culture - Final, Complete 05/04/21 Blood Culture - Final, Complete NO GROWTH AFTER 5 DAYS Vitals/I & O Vital Sign - Last 24 Hours 05/19/21 05/19/21 05/19/21 05/19/21 13:00 14:00 14:16 15:00 Pulse 105 109 112 88 Resp 28 30 20 B/P (MAP) 184/85 (118) 152/80 (104) 152/80 172/81 (111) Pulse Ox 98 99 96 O2 Delivery Ventilator Ventilator Ventilator 05/19/21 05/19/21 05/19/21 05/19/21 15:05 15:35 16:00 16:00 Temp 99.7 99.7 Pulse 126 Resp 30 B/P (MAP) 160/93 (115) Pulse Ox 98 100 96 O2 Delivery Ventilator Ventilator Mechanical Ventilator 05/19/21 05/19/21 05/19/21 05/19/21 16:03 17:00 17:56 18:00 Pulse 117 88 76 Resp 27 22 B/P (MAP) 198/85 (122) 122/61 123/61 (81) Pulse Ox 100 96 99 O2 Delivery Ventilator Ventilator Ventilator 05/19/21 05/19/21 05/19/21 05/19/21 19:00 19:15 19:45 20:00 Pulse 72 Resp 20 B/P (MAP) 119/60 (79) 121/62 (81) 120/61 (80) Pulse Ox 100 O2 Delivery Ventilator Mechanical Ventilator 05/19/21 05/19/21 05/19/21 05/19/21 20:00 20:00 21:00 21:45 Temp 98.6 98.6 Pulse 92 86 Resp 20 20 B/P (MAP) 159/83 (108) 180/77 (111) 117/59 (78) Pulse Ox 99 100 99 O2 Delivery Ventilator Ventilator Ventilator 05/19/21 05/19/21 05/19/21 05/19/21 22:00 23:00 23:03 23:48 Pulse 61 68 93 Resp 20 20 B/P (MAP) 116/58 (77) 128/61 (83) 138/61 Pulse Ox 100 100 100 O2 Delivery Ventilator Ventilator Ventilator 05/20/21 05/20/21 05/20/21 05/20/21 00:00 00:01 01:00 02:00 Temp 98.1 98.1 Pulse 70 64 75 Resp 20 20 20 B/P (MAP) 178/80 (112) 116/55 (75) 136/64 (88) Pulse Ox 98 99 98 O2 Delivery Mechanical Ventilator Ventilator Ventilator Ventilator 05/20/21 05/20/21 05/20/21 05/20/21 02:00 03:00 03:30 04:00 Temp 98.3 98.3 Pulse 58 66 Resp 20 20 B/P (MAP) 132/59 (83) 137/63 (87) Pulse Ox 100 100 100 O2 Delivery Ventilator Ventilator Mechanical Ventilator Ventilator 05/20/21 05/20/21 05/20/21 05/20/21 05:00 05:00 05:34 06:00 Pulse 58 74 63 Resp 20 20 B/P (MAP) 140/64 (89) 163/68 146/65 (92) Pulse Ox 100 100 100 O2 Delivery Ventilator Ventilator Ventilator 05/20/21 05/20/21 05/20/21 05/20/21 07:00 07:18 08:00 08:00 Temp 98.3 98.3 Pulse 59 74 Resp 20 20 B/P (MAP) 138/60 (86) 152/65 (94) Pulse Ox 100 100 100 O2 Delivery Ventilator Ventilator Ventilator Mechanical Ventilator 05/20/21 05/20/21 05/20/21 05/20/21 09:00 09:00 09:00 09:00 Pulse 73 73 73 73 Resp 20 B/P (MAP) 147/66 147/66 147/66 147/66 (93) Pulse Ox 100 O2 Delivery Ventilator 05/20/21 05/20/21 05/20/21 05/20/21 09:09 09:30 09:36 09:39 Pulse Ox 100 100 100 100 O2 Delivery Ventilator Ventilator 05/20/21 05/20/21 05/20/21 05/20/21 10:00 11:00 11:28 11:38 Pulse 68 75 75 Resp 20 20 B/P (MAP) 147/66 (93) 149/69 (95) 149/69 Pulse Ox 99 99 100 O2 Delivery Ventilator Ventilator Ventilator 05/20/21 11:39 Pulse 75 B/P (MAP) 149/69 Intake and Output 05/19/21 05/19/21 05/20/21 15:00 23:00 07:00 Intake Total 300 ml 2710 ml 2477 ml Output Total 1050 ml 425 ml 740 ml Balance -750 ml 2285 ml 1737 ml Images KUB yesterday c/w ileus. Problem List Problems Medical Problems: (1) Elevated troponin Status: Acute (2) Person under investigation for COVID-19 Status: Acute (3) Pulmonary edema Status: Acute Assessment Ileus-->vomiting. Plan of Care Note Continue NG to suction. Parenteral nutrition for ;now. Justicifation of Admission Dx: Justifications for Admission: Justification of Admission Dx: Yes Aspiration Pneumonia: Hemodynamic Instability CLINT PRICE MD May 20, 2021 12:37
[2021-05-20] MEDS: MONTELUKAST SODIUM 10 MG TABLET. PO SCH (21:00)
[2021-05-20] MEDS: ATORVASTATIN CALCIUM 40 MG TABLET. PO SCH (21:00)
[2021-05-20] MEDS: INSULIN GLARGINE SYRINGE. SQ SCH (21:00)
[2021-05-21] VITALS (25 sets, daily range): BP systolic 87–178; BP diastolic 49–82
[2021-05-21] MEDS: DEXMEDETOMIDINE 400 MCG in IV NORMAL SALINE 100ML 96 ML IV PRN ×7 (01:13→22:18)
[2021-05-21] MEDS: METOPROLOL IV PUSH 5 MG/5 ML VIAL. IVP SCH ×3 (05:56→17:23)
[2021-05-21] MEDS: INSULIN LISPRO 300 UNITS/3 ML VIAL. SQ SCH ×3 (06:00→17:26)
[2021-05-21] MEDS: HEPARIN for SUB-Q USE 5,000 UNIT/ML VIAL. SQ SCH ×3 (06:06→21:29)
[2021-05-21 06:36] LABS: CALCIUM 8.2 mg/dL (8.5-10.1); CREATININE 2.5 mg/dL (0.7-1.3); GFR 30.7; POTASSIUM 3.4 mmol/L (3.5-5.1)
--- NOTE | 2021-05-21 07:18 | PDOC ---
[facility] PROGRESS NOTE Date of Service DOS: DATE: 05/21/21 TIME: 07:12 Chief Complaint Chief Complaint Respiratory failure requiring intubation COVID-19 Acute CO A. fib SIRS Hypertension with hypertensive urgency Hyperlipidemia CKD Diabetes History of bilateral subclavian stenosis History of marijuana use Severe protein calorie malnutrition Trach placed on May 15 GI consulted for PEG evaluation --> patient with a lot of vomiting yesterday thus current NG tube to low intermittent suction History of Present Illness History of Present Illness 05/21/2021: Afebrile, no acute events overnight. Remains on vent, FiO2 40%, PEEP 5. S/P tracheostomy on 05/15/2021. KUB on 05/19/2021 consistent with ileus. Per GI, continue NG tube to suction and parenteral nutrition for now. Continue IV antibiotics, per ID. Continue hemodialysis, per nephrology. Continue supportive care. Critical care time 30 minutes spent reviewing charts, reviewing imaging, reviewing labs, and discussed with RN. 05/20/21 Patient seen and examined at bedside. Again had multiple bouts of vomiting yesterday. GI continuing to follow for PEG evaluation although on hold right now due to persistent vomiting. Leukocytosis does persist but patient afebrile. Plan of care discussed with bedside RN 05/19/21 Patient seen and examined at bedside. Apparently had a fair bit of vomiting overnight. GI following for PEG evaluation. Otherwise patient remained stable. Plan of care discussed with bedside nurse. 05/18/21 Patient seen and examined at bedside. Attempting to increase tube feeds, GI consulted for PEG evaluation. Otherwise no major clinical changes. Continue to wean sedation. Plan of care discussed with bedside nurse. 05/17/21 Patient seen and examined at bedside. Attempting to wean sedation. Patient with some diarrhea. Per infectious disease will give erythromycin eye ointment for eye lesions. Nephro and pulm also following. Continue sedation weaning, plan of care discussed with bedside nurse. 05/16/21 Patient seen and examined at bedside. Underwent tracheostomy yesterday today tolerated well. When seen this morning patient is still notably sedated respiratory status is stable. Continue antibiotics and supportive measures. Plan of care discussed with bedside nurse. Attempt to wean sedation. 05/15/21 Patient seen and examined at bedside Remains intubated and sedated planning for tracheostomy today Continue current respiratory support; continue antibiotics, continue sedation Follow recommendations of pulmonary, renal, and infectious disease Plan of care discussed with bedside nurse Will follow up with patient after surgery today 05/14/21 Patient seen and examined at bedside Remains intubated and sedated planning for tracheostomy tomorrow Continue current respiratory support; continue antibiotics, continue sedation Follow recommendations of pulmonary, renal, and infectious disease Plan of care discussed with bedside nurse 05/13/2021 did not tolerate sedation vacation 05/11/2021, profoundly hypertensive ABG/CXR--changes as needed Continue iv cefepime , add zyvox, sputum culture VENT [id number]%, 5 of PEEP Mild pulmonary edema with new small right pleural effusion and basilar opacities now on cardene gtt prn Patient seen and examined in the COVID-19 ICU remains mechanically ventilated ILDA on CKD - ATN 2/2 sepsis/ Hypotension,UOP good,on IV Lasix ; requiring dialysis, Sedated with propofol Dex and fentanyl Chart reviewed Discussed with RN He remains critically ill intubated/sedated cont cardene gtt not able to tolerate PS trial 05/06/21 Change central line and send cath tip for cultures. 05-09 C. difficile PCR ADELSO AVILA MD ORDERED: BCULT - Procedure Result BLOOD CULTURE Final NO GROWTH AFTER 5 DAYS JONES FISHMAN MD,BRIAN Roberson MD BLOOD CULTURE Preliminary NO GROWTH AFTER 4 DAYS 37 min cc time 05/12/2021 Continue iv cefepime , add zyvox, sputum culture VENT [id number]%, 5 of PEEP Mild pulmonary edema with new small right pleural effusion and basilar opacities now on cardene gtt prn Patient seen and examined in the COVID-19 ICU remains mechanically ventilated ILDA on CKD - ATN 2/2 sepsis/ Hypotension,UOP good,on IV Lasix ; requiring dialysis, Sedated with propofol Dex and fentanyl Chart reviewed Discussed with RN He remains critically ill intubated/sedated cont cardene gtt not able to tolerate PS trial 05/06/21 Change central line and send cath tip for cultures. 05-09 C. difficile PCR JONES FISHMAN MD, CHRISTOPHER S MD SISILLO, SABATO MD ORDERED: BCULT Procedure Result ---- -------- BLOOD CULTURE Preliminary NO GROWTH AFTER 2 DAYS BLOOD CULTURE Preliminary NO GROWTH AFTER 4 DAYS 33 min cc time 05/11/2021 Continue iv cefepime , add zyvox, sputum culture VENT [id number]%, 5 of PEEP Mild pulmonary edema with new small right pleural effusion and basilar opacities now on cardene gtt prn Patient seen and examined in the [place] [id number] ICU remains mechanically ventilated ILDA on CKD - ATN 2/2 sepsis/ Hypotension,UOP good,on IV Lasix ; requiring dialysis, Sedated with propofol Dex and fentanyl Chart reviewed Discussed with RN He remains critically ill intubated/sedated cont cardene gtt not able to tolerate PS trial 05/06/21 Change central line and send cath tip for cultures. 05-09 C. difficile PCR JONES FISHMAN MD,BRIAN AVILA,ADELSO POTTER ORDERED: BCULT Procedure Result BLOOD CULTURE Preliminary NO GROWTH AFTER 2 DAYS BLOOD CULTURE Preliminary NO GROWTH AFTER 4 DAYS 36 min cc time 05/10/2021 VENT %, 5 of PEEP Mild pulmonary edema with new small right pleural effusion and basilar opacities now on cardene gtt prn Patient seen and examined in the [place] [address] ICU remains mechanically ventilated ILDA on CKD - ATN 2/2 sepsis/ Hypotension,UOP good,on IV Lasix ; requiring dialysis, Sedated with propofol Dex and fentanyl Chart reviewed Discussed with RN He remains critically ill intubated/sedated cont cardene gtt not able to tolerate PS trial 05/06/21 Change central line and send cath tip for cultures. 05-09 C. difficile PCR JONES FISHMAN MD,BRIAN AVILA,ADELSO POTTER ORDERED: BCULT Procedure Result BLOOD CULTURE Preliminary NO GROWTH AFTER 2 DAYS BLOOD CULTURE Preliminary NO GROWTH AFTER 4 DAYS 33 min cc time 05/09/2021 VENT %, 5 of PEEP Mild pulmonary edema with new small right pleural effusion and basilar opacities now on cardene gtt prn Patient seen and examined in the [place] [address] ICU remains mechanically ventilated ILDA on CKD - ATN 2/2 sepsis/ Hypotension,UOP good,on IV Lasix ; requiring dialysis, Sedated with propofol Dex and fentanyl Chart reviewed Discussed with RN He remains critically ill intubated/sedated cont cardene gtt not able to tolerate PS trial 05/06/21 Change central line and send cath tip for cultures. 05-09 C. difficile PCR JONES FISHMAN MD,ADELSO DASILVA MD, MD ORDERED: BCULT Procedure Result BLOOD CULTURE Preliminary NO GROWTH AFTER 2 DAYS BLOOD CULTURE Preliminary NO GROWTH AFTER 4 DAYS 37 min cc time 05/08/2021 Currently on 40%, 5 of PEEP now on cardene gtt Patient seen and examined in the [place] [address] ICU remains mechanically ventilated ILDA on CKD - ATN 2/2 sepsis/ Hypotension,UOP good,on IV Lasix ; requiring dialysis, AC/20/500/40 percent with 5 of PEEP Sedated with propofol Dex and fentanyl Chart reviewed Discussed with RN He remains critically ill intubated/sedated cont cardene gtt not able to tolerate PS trial 05/06/21 JONES FISHMAN MD, CHRISTOPHER S MD SISILLO, SABATO MD ORDERED: BCULT Procedure Result BLOOD CULTURE Preliminary NO GROWTH AFTER 2 DAYS BLOOD CULTURE Preliminary NO GROWTH AFTER 4 DAYS 33 min cc time 05/07/2021 Patient seen and examined in the [place] [address] ICU He remains mechanically ventilated ILDA on CKD - ATN 2/2 sepsis/ Hypotension,UOP good,on IV Lasix ; requiring dialysis, AC/20/500/40 percent with 5 of PEEP Sedated with propofol Dex and fentanyl Chart reviewed Discussed with RN He remains critically ill intubated/sedated cont cardene gtt not able to tolerate PS trial 05/06/21 JONES FISHMAN MD, CHRISTOPHER S MD SISILLO, SABATO MD ORDERED: BCULT Procedure Result BLOOD CULTURE Preliminary NO GROWTH AFTER 2 DAYS 36 min cc time 05/06/2021 Patient seen and examined in the [place] [address] ICU He remains mechanically ventilated AC/20/500/40 percent with 5 of PEEP Sedated with propofol Dex and fentanyl Chart reviewed Discussed with RN He remains critically ill 05/05/2020 Patient seen and examined in the [place] [address] ICU He remains on the vent AC/20/500/40 percent with 5 of PEEP Discussed with RN Chart reviewed Has SCDs in place Nieves to bedside drainage He remains critically ill 05/04/2021 Patient seen and examined in the [place] [address] ICU Still intubated Sedated with propofol and fentanyl AC/20/500/70 percent with 5 of PEEP On dialysis currently Has SCDs in Nieves to bedside drainage Discussed with RN Chart reviewed 05/03/2021 Patient seen and examined in the [place] [address] ICU He is still intubated AC/20/500/70 percent with 5 of PEEP Has SCDs in place Nieves to bedside drainage Sedated with fentanyl Versed and propofol Discussed are Chart reviewed Remains critically ill 05/02/2021 Patient seen and examined in the [place] [address] ICU He is sedated with propofol fentanyl and Versed Ventilator settings as follow AC/20/500/40 percent with 5 of PEEP Has Nieves to bedside drainage Chart reviewed Discussed with RN He remains critically ill 05/01/2021 Patient seen and examined in the [facility]- ICU He is still intubated AC/20/500/40 percent with 5 of PEEP In A. fib Sedated with propofol fentanyl and Versed Has a heparin drip Missy with RN Chart reviewed He remains critically 04/30/2020 Patient seen and examined in the [facility]- ICU He remains on the vent AC/20/500/40 5% with 5 PEEP Currently on dialysis Has OG feeds running Has a Nieves to bedside drainage Sedated with propofol and fentanyl Reviewed chart Discussed with RN He remains critically ill Mr Cunha is a 75 yo male w/ PMHx CAD, HTN, Hyperlipidemia, subclavian steel syndrome, subclavian stenosis s/p left subclavian sent placement complicated by retroperitoneal hematoma s/p evacuation in 08/2015), asthma, BART, CKD, DM2 who presented from home with home health care noted that he was short of breath and valverde with O2 saturations less than 89% as low as 84% not improved with nasal cannulated oxygen placed on CPAP and brought to ED for further care. He was just discharged from the hospital a week ago on April 19, 2021 for abdominal pain and was going for further cardiac testing with outpatient stress testing scheduled on May 28, 2021. Had echocardiogram April 17, 2021 with normal-appearing EF with moderate concentric LVH no significant valvular abnormalities. WBC 20, Hb 10.7, platelets 268, NA 140, K3.8, BUN 21, CR 2.9, glucose 162, albumin 3, troponin I 1.372, NT proBNP 33,318. EKG appears sinus tachycardia rate of 105 bpm with multiple PACs small ST depressions in lead II and V5. TWI in V6. Chest radiograph with diffuse interstitial and alveolar opacities and ET tube 5.8 cm above the leilani. Due to worsening respiratory status ED physician elected to intubate patient. Seen postintubation. Blood pressure little low after propofol bolus, but improved. Significant white frothy sputum per ET tube. Admitted to ICU for further care 04/29/2021: Afebrile, remains on vent at FiO2 45%, PEEP 5. WBC 20.4. Hemodialysis per nephrology. We will continue treatment with empiric antibiotics, remdesivir, and steroids. Continue heparin infusion and supportive care. Critical care time 30 minutes reviewing chart, review labs, review imaging, discussion with RN. 04/28/2021: Afebrile. FiO2 50%, PEEP 5. Nontunneled HD catheter placed yesterday due to worsening kidney function; eGFR 16 (CKD4). Chest x-ray showed unchanged interstitial opacities. Continue empiric antibiotics, steroids, and remdesivir. Continue heparin infusion, and continue to follow cardiology recommendations on new diagnosis of A. fib. Critical care time 30 minutes reviewing chart, review labs, review imaging, discussion with RN. 04/27/2021: Afebrile. On vent with FiO2 50%, PEEP 5. Troponin 2.8 yesterday; probable type II, demand ischemia. New onset A. fib. Continue heparin drip and as needed digoxin, per cardiology. Continue treatment with remdesivir, steroids, and prophylactic antibiotics. CBG 323 this morning; will add basal insulin. Critical care 30 minutes spent reviewing labs, reviewing imaging, reviewing charts, and discussion with RN. 04/26/2021: COVID-19 positive. Febrile overnight that was managed with cooling blankets. On vent with FiO2 50%, PEEP 5. Per cardiology, elevated troponins likely secondary to demand ischemia; continue heparin drip per cardiology. Maintain fluid balance and avoid nephrotoxins. Continue treatment with remdesivir, steroids, and prophylactic antibiotics. 30 minutes critical care time spent reviewing charts, reviewing labs, reviewing imaging, and discussion with RN. 04/25/2021: On vent FiO2 50, PEEP 5. Febrile, T-max 103.3. Patient was initiated on cooling blankets. Procalcitonin 0.13. Continue coverage for hospital-acquired pneumonia with cefepime. MRSA PCR pending. Critical care time 30 minutes spent reviewing charts, reviewing labs, review of imaging, discussion with RN. Vitals/I&O Vitals/I&O: Vital Signs Date Time Temp Pulse Resp B/P (MAP) Pulse Ox O2 Delivery O2 Flow Rate FiO2 05/21/21 06:02 100 Ventilator 05/21/21 06:00 54 15 132/60 (84) 05/21/21 04:00 97.8 97.8 I & O 05/20/21 05/20/21 05/21/21 15:00 23:00 07:00 Intake Total 300 ml 2077 ml 1501 ml Output Total 475 ml 525 ml 225 ml Balance -175 ml 1552 ml 1276 ml Physical Exam Physical Exam: GENERAL: Well-developed and well-nourished male, intubated, HEENT: Normocephalic, atraumatic, redness and erythema of both eyes left greater than right ETT and OGT present. NECK: right dialysis catheter present clean,central line changed ( 05/11) HEART: S1, S2. LUNGS: Decreased breath sounds. ABDOMEN: distended,hypoactive BS GENITOURINARY: Nieves in place. EXTREMITIES: Edema present. DERMATOLOGIC: Warm, dry, no generalized rash. NEUROLOGIC: Intubated. PICC line clean General: No acute distress, Other (Answering some questions when awake) Heart: Regular rate, Normal S1, Normal S2 Lungs: Clear Abdomen: Normal bowel sounds, Other (ND) Extremities: No clubbing, No cyanosis, Other (Lower extremity edema) Skin: No rashes, No breakdown, No significant lesion Labs Labs: Laboratory Tests Test 05/20/21 11:34 05/20/21 17:59 05/20/21 21:06 05/20/21 23:45 Glucose (Fingerstick) 126 mg/dL (70-99) 139 mg/dL (70-99) 136 mg/dL (70-99) 133 mg/dL (70-99) Test 05/21/21 05:24 05/21/21 05:49 Sodium Level 138 mmol/L (136-145) Potassium Level 3.4 mmol/L (3.5-5.1) Chloride Level 105 mmol/L (98-107) Carbon Dioxide Level 19 mmol/L (21-32) Anion Gap 14 (6-14) Blood Urea Nitrogen 36 mg/dL (8-26) Creatinine 2.5 mg/dL (0.7-1.3) Estimated GFR (Cockcroft-Gault) 30.7 Glucose Level 143 mg/dL (70-99) Calcium Level 8.2 mg/dL (8.5-10.1) Albumin 1.3 g/dL (3.4-5.0) Glucose (Fingerstick) 139 mg/dL (70-99) Assessment and Plan Assessmemt and Plan Problems Medical Problems: (1) Elevated troponin Status: Acute (2) Person under investigation for COVID-19 Status: Acute (3) Pulmonary edema Status: Acute Comment Review of Relevant I have reviewed the following items juanita (where applicable) has been applied. Justifications for Admission General Conditions Altered mental status?: Yes Justification of admission: Patient has tachycardia (> 100 beats per minute) or hypotension (SBP < 90 mm Hg) leading to inadequate systemic perfusion as indicated by severe/persistent altered mental status. Other Justification ILDA SARAH BETH CARRASCO MD May 21, 2021 07:18
--- NOTE | 2021-05-21 07:51 | PDOC ---
PULMONARY PROGRESS NOTES DATE: 05/21/21 TIME: 07:48 Subjective Pt. is currently on PS 10/5, tolerating well no overnight concerns Vitals Vital Signs Date Time Temp Pulse Resp B/P (MAP) Pulse Ox O2 Delivery O2 Flow Rate FiO2 05/21/21 06:02 100 Ventilator 05/21/21 06:00 54 15 132/60 (84) 05/21/21 04:00 97.8 97.8 Comments Awake and follows some commands. No obvious respiratory distress HEENT: Other (Trachea midline) Lungs: Clear Cardiovascular: S1, S2 Abdomen: Soft Extremities: No Edema Labs Laboratory Tests Test 05/19/21 11:20 05/19/21 17:07 05/19/21 20:01 05/19/21 23:44 Glucose (Fingerstick) 108 mg/dL (70-99) 131 mg/dL (70-99) 103 mg/dL (70-99) 105 mg/dL (70-99) Test 05/20/21 05:27 05/20/21 05:30 05/20/21 11:34 05/20/21 17:59 Glucose (Fingerstick) 121 mg/dL (70-99) 126 mg/dL (70-99) 139 mg/dL (70-99) White Blood Count 16.8 x10^3/uL (4.0-11.0) Red Blood Count 2.85 x10^6/uL (4.30-5.70) Hemoglobin 7.6 g/dL (13.0-17.5) Hematocrit 23.5 % (39.0-53.0) Mean Corpuscular Volume 83 fL (79-100) Mean Corpuscular Hemoglobin 27 pg (25-35) Mean Corpuscular Hemoglobin Concent 32 g/dL (31-37) Red Cell Distribution Width 16.4 % (11.5-14.5) Platelet Count 153 x10^3/uL (140-400) Sodium Level 138 mmol/L (136-145) Potassium Level 3.2 mmol/L (3.5-5.1) Chloride Level 103 mmol/L (98-107) Carbon Dioxide Level 21 mmol/L (21-32) Anion Gap 14 (6-14) Blood Urea Nitrogen 35 mg/dL (8-26) Creatinine 2.6 mg/dL (0.7-1.3) Estimated GFR (Cockcroft-Gault) 29.3 Glucose Level 127 mg/dL (70-99) Calcium Level 8.6 mg/dL (8.5-10.1) Phosphorus Level 4.3 mg/dL (2.6-4.7) Magnesium Level 1.9 mg/dL (1.8-2.4) Test 05/20/21 21:06 05/20/21 23:45 05/21/21 05:24 05/21/21 05:49 Glucose (Fingerstick) 136 mg/dL (70-99) 133 mg/dL (70-99) 139 mg/dL (70-99) Sodium Level 138 mmol/L (136-145) Potassium Level 3.4 mmol/L (3.5-5.1) Chloride Level 105 mmol/L (98-107) Carbon Dioxide Level 19 mmol/L (21-32) Anion Gap 14 (6-14) Blood Urea Nitrogen 36 mg/dL (8-26) Creatinine 2.5 mg/dL (0.7-1.3) Estimated GFR (Cockcroft-Gault) 30.7 Glucose Level 143 mg/dL (70-99) Calcium Level 8.2 mg/dL (8.5-10.1) Albumin 1.3 g/dL (3.4-5.0) Laboratory Tests Test 05/20/21 11:34 05/20/21 17:59 05/20/21 21:06 05/20/21 23:45 Glucose (Fingerstick) 126 mg/dL (70-99) 139 mg/dL (70-99) 136 mg/dL (70-99) 133 mg/dL (70-99) Test 05/21/21 05:24 05/21/21 05:49 Sodium Level 138 mmol/L (136-145) Potassium Level 3.4 mmol/L (3.5-5.1) Chloride Level 105 mmol/L (98-107) Carbon Dioxide Level 19 mmol/L (21-32) Anion Gap 14 (6-14) Blood Urea Nitrogen 36 mg/dL (8-26) Creatinine 2.5 mg/dL (0.7-1.3) Estimated GFR (Cockcroft-Gault) 30.7 Glucose Level 143 mg/dL (70-99) Calcium Level 8.2 mg/dL (8.5-10.1) Albumin 1.3 g/dL (3.4-5.0) Glucose (Fingerstick) 139 mg/dL (70-99) Medications Active Scripts Medications Dose Route/Sig Max Daily Dose Days Date Category Glyburide 2.5 Mg Tablet 1 Tab PO DAILY 04/19/21 Rx Polyethylene Glycol 3350 17 Gm Powd.pack 17 Gm PO DAILY 04/19/21 Rx Dok (Docusate Sodium) 100 Mg Capsule 100 Mg PO PRN DAILY PRN 04/19/21 Rx Bisacodyl 5 Mg Tablet. 5 Mg PO PRN DAILY PRN 04/19/21 Rx Acetaminophen 325 Mg Tablet 650 Mg PO PRN Q4HRS PRN 04/19/21 Rx Aspirin Ec (Aspirin) 81 Mg Tablet.dr 81 Mg PO DAILYWBKFT 04/19/21 Rx Hydralazine Hcl 25 Mg Tablet 25 Mg PO QID 04/19/21 Rx Fenofibrate 54 Mg Tablet 1 Tab PO DAILY 04/17/21 Reported Potassium Chloride (Potassium Chloride) 20 Meq Tablet.er 20 Meq PO DAILY 04/17/21 Reported Coreg (Carvedilol) 12.5 Mg Tablet 37.5 Mg PO BIDWMEALS 04/17/21 Reported Rosuvastatin Calcium 40 Mg Tablet 40 Mg PO QHS 04/17/21 Reported Gabapentin (Gabapentin) 100 Mg Capsule 200 Mg PO BID 04/17/21 Reported Montelukast Sodium Tablet (Montelukast Sodium) 10 Mg Tablet 10 Mg PO HS 04/17/21 Reported Protonix (Pantoprazole Sodium) 20 Mg Tablet. 2 Tab PO DAILY 04/17/21 Reported Amlodipine Besylate 5 Mg Tablet 5 Mg PO DAILY 04/17/21 Reported Furosemide 40 Mg Tablet 1 Tab PO DAILY 04/17/21 Reported Proair Hfa Inhaler (Albuterol Sulfate) 8.5 Gm Hfa.aer.ad 2 Puff IH PRN Q4-6HRS PRN 04/16/21 Reported Advair 100-50 Diskus (Fluticasone/Salmeterol) 1 Each Disk.w.dev 1 Puff IH BID 04/16/21 Reported Comments Impression . IMPRESSION: 1. Acute hypoxic respiratory failure, multifactorial/COVID-19 viral pneumonia/ARDS, ongoing, intubated 04/25/2021, now status post tracheostomy 05/15/[address] chest with bilateral diffuse interstitial infiltrates without any significant pleural effusion 3. Leukocytosis, sepsis--improved 4. Non-ST segment elevation OH 5. History of tobacco use, suspect COPD, unknown FEV1 6. Chronic kidney disease.== HD on hold 7. Metabolic acidosis multifactorial 8. Abnormal chest x-ray 9. Hypoglycemia, continue to monitor--- resolved 10. Hypotension, suspect volume deficit,/possible sepsis--- resolved 11. Fever--improved 12. Anemia--improved 13. Atrial fibrillation with rapid ventricular response, currently rate controlled Plan . Updated 05/21/21 Continue current vent support, currently on PS 10/5 40%, tolerating well, PS during the day as tolerated AC [id number]/500/40%/5 Follow ABG/CXR--changes as needed Follow ID recs for ABX --continue meropenem Trach care daily and as needed Follow GI recs--now with ileus, PEG tube on hold Follow surgery recommendations S/P trach 05/15/2021 Follow nephrology recs-- HD on hold, last HD was 05/12/21 Follow Cardiology recs--preserved LV function, hypertension, a-fib Continue TF for nutritional support--on hold DVT/GI PPX:t sq heparin D/W RN and RT Pt. is DNR Social work for DC planning LTACH, planned to [facility] to [facility] 30 min Updated 05/20/21 Continue current vent support 20/500/40%/5 proceed with PS trial again today with special attention to heart rate., Follow ABG/CXR--changes as needed Follow ID recs for ABX --continue meropenem Trach care daily and as needed Follow GI recs planned for PEG tube on friday Follow surgery recommendations S/P trach 05/15/2021 Follow nephrology recs-- HD on hold, Monitor hemoglobin--stable-- Follow Cardiology recs--preserved LV function, hypertension, Continue TF for nutritional support DVT/GI PPX:t sq heparin D/W RN and RT Pt. is DNR Social work for DC planning LTACH, planned to [facility] to [facility] next week after PEG is placed cct 30 min JONES FISHMAN MD May 21, 2021 07:51
--- NOTE | 2021-05-21 08:34 | PDOC ---
Infectious Disease Note Subjective: Subjective Pt remains intubated afebrile No more episodes of vomiting reported d/W nursing staff Vital Signs: Vital Signs Vital Signs Date Time Temp Pulse Resp B/P (MAP) Pulse Ox O2 Delivery O2 Flow Rate FiO2 05/21/21 06:02 100 Ventilator 05/21/21 06:00 54 15 132/60 (84) 05/21/21 04:00 97.8 97.8 Physical Exam: PHYSICAL EXAM GENERAL: Well-developed and well-nourished male, intubated, HEENT: Normocephalic, atraumatic, redness and erythema of both eyes left greater than right ETT and OGT present. NECK: right dialysis catheter present clean,central line changed ( 05/11) HEART: S1, S2. LUNGS: Decreased breath sounds. ABDOMEN: distended,hypoactive BS GENITOURINARY: Nieves in place. EXTREMITIES: Edema present. DERMATOLOGIC: Warm, dry, no generalized rash. NEUROLOGIC: Intubated. PICC line clean Medications: Inpatient Meds: Medications reviewed. Labs: Lab Laboratory Tests Test 05/20/21 11:34 05/20/21 17:59 05/20/21 21:06 05/20/21 23:45 Glucose (Fingerstick) 126 mg/dL (70-99) 139 mg/dL (70-99) 136 mg/dL (70-99) 133 mg/dL (70-99) Test 05/21/21 05:24 05/21/21 05:49 Sodium Level 138 mmol/L (136-145) Potassium Level 3.4 mmol/L (3.5-5.1) Chloride Level 105 mmol/L (98-107) Carbon Dioxide Level 19 mmol/L (21-32) Anion Gap 14 (6-14) Blood Urea Nitrogen 36 mg/dL (8-26) Creatinine 2.5 mg/dL (0.7-1.3) Estimated GFR (Cockcroft-Gault) 30.7 Glucose Level 143 mg/dL (70-99) Calcium Level 8.2 mg/dL (8.5-10.1) Albumin 1.3 g/dL (3.4-5.0) Glucose (Fingerstick) 139 mg/dL (70-99) Objective: Assessment: 1. Febrile illness could be healthcare-associated infection,resolved 2. Leukocytosis, was on steroids 3. COVID-19 pneumonia. 4. Acute hypoxic respiratory failure status post intubation. 5. Congestive heart failure, acute on chronic. 6. Acute kidney injury on chronic kidney disease on hemodialysis. 7. Diabetes mellitus 2. 8. Atrial fibrillation. 9. Anemia. 10. Protein-calorie malnutrition. 11. Hypertention 12.Hyponatremia 13. Ileus, Bowel obstruction 14. TF on hold, on Parenteral nutrition Plan: Plan of Care WBC increasing ,likely from ileus 1. Continue Meropenem renal dosing as needed,pharmacy to assist off Zyvox. Maintain aspiration precautions. 2. Follow-up labs and cultures. 3. Central line changed on 05/11,C. difficile PCR negative 4. Continue supportive care. 5 Critically ill. 6. Local eye care 7. erythromycin eye ointment Lab for am ordered Discussed with nursing staff ALAYNA RIVERO MD May 21, 2021 08:34
--- NOTE | 2021-05-21 10:18 | PDOC ---
Renal-Progress Notes Subjective Notes Notes NO NEW EVENTS History of Present Illness Hx of present illness OVERALL STABLE Vitals Vitals Vital Signs Date Time Temp Pulse Resp B/P (MAP) Pulse Ox O2 Delivery O2 Flow Rate FiO2 05/21/21 08:58 100 Ventilator 05/21/21 07:00 48 12 118/56 (76) 05/21/21 04:00 97.8 97.8 Weight Weight [ ] I.O. Intake and Output Intake and Output 05/21/21 07:00 Intake Total 4526 ml Output Total 1360 ml Balance 3166 ml IV Total 3626 ml Tube Feeding 900 ml Output Urine Total 1360 ml Labs Labs Laboratory Tests Test 05/20/21 11:34 05/20/21 17:59 05/20/21 21:06 05/20/21 23:45 Glucose (Fingerstick) 126 mg/dL (70-99) 139 mg/dL (70-99) 136 mg/dL (70-99) 133 mg/dL (70-99) Test 05/21/21 05:24 05/21/21 05:49 Sodium Level 138 mmol/L (136-145) Potassium Level 3.4 mmol/L (3.5-5.1) Chloride Level 105 mmol/L (98-107) Carbon Dioxide Level 19 mmol/L (21-32) Anion Gap 14 (6-14) Blood Urea Nitrogen 36 mg/dL (8-26) Creatinine 2.5 mg/dL (0.7-1.3) Estimated GFR (Cockcroft-Gault) 30.7 Glucose Level 143 mg/dL (70-99) Calcium Level 8.2 mg/dL (8.5-10.1) Albumin 1.3 g/dL (3.4-5.0) Glucose (Fingerstick) 139 mg/dL (70-99) Micro Micro Microbiology 05/11/21 Gram Stain Evaluation - Final, Complete 05/11/21 Respiratory Culture - Final, Complete 05/04/21 Gram Stain - Final, Complete 05/04/21 Aerobic Culture - Final, Complete 05/04/21 Blood Culture - Final, Complete NO GROWTH AFTER 5 DAYS Review of Systems Constitutional: yes: unresponsive, other Physical Exam General Appearance: other (ON THE VENT) Respiratory: decreased breath sounds Heart: S1S2 Abdomen: bowel sounds present Genitourinary: bladder flat Extremities: atrophy Neurology: other (sedated) Musculoskeletal: Other Assessment Assessment IMP HYPONATREMIA-RESOLVED HYPOKALEMIA [id number] STABLE AT 2.5 CKD - SUSPECT STAGE 3 ACUTE HYPOXIC RESP FAILURE COVID 19 PNEUMONIA MET ACIDOSIS-BETTER LEUCOCYTOSIS ANEMIA S/P TRACH DIARRHEA PLAN REPLACE K REMAINS CRITICALLY ILL VENT SUPPORT-FIO2 OF 40% CONT NEPRO TF PRESSORS NEEDED HD LAST ON SAT 08-07 CONT TO HOLD HD MAINTAIN HD LINE CONT TO MONITOR FOR RENAL RECOVERY CONT IVF LTAC TRANSFER PENDING WILL FOLLOW JEANINE NEWTON MD May 21, 2021 10:18
[2021-05-21] MEDS ORDERED: POTASSIUM CHLORIDE 20MEQ 100 ML IV ONE (10:30)
[2021-05-21] MEDS: IV NORMAL SALINE 1000ML BAG 1,000 ML IV SCH (11:06)
[2021-05-21] MEDS: AMIODARONE HCL 200 MG TABLET. PO SCH (11:07)
[2021-05-21] MEDS: MEROPENEM 500 MG in IV NORMAL SALINE 50ML 50 ML IV SCH ×2 (11:07→21:23)
[2021-05-21] MEDS: ASPIRIN CHEWABLE 81 MG TABLET. PO SCH (11:07)
[2021-05-21] MEDS: hydrALAZINE 25 MG TABLET PO SCH ×4 (11:08→21:00)
[2021-05-21] MEDS: PANTOPRAZOLE IV PUSH 40 MG VIAL. IVP SCH (11:09)
[2021-05-21] MEDS: ERYTHROMYCIN 0.5% OPHTH OINTMENT 1GM TUBE. OU SCH ×2 (11:09→21:25)
[2021-05-21] MEDS: NYSTATIN TOPICAL POWDER 15GM BOTTLE. TP SCH ×2 (11:13→21:33)
--- NOTE | 2021-05-21 11:47 | NUR ---
SS following up with discharge planning. SS reviewed pt chart and discussed with pt RN. Pt is currently on the vent at 40%. COVID19 recovered. Trach in place. Pt on IV Meropenem. NG in place. RN working to wean Precedex. Pt on Fentanyl. Pt accepted at [facility], ; fax [phone], pending insurance authorization. SS phoned and faxed clinical updates to [facility]. SS will continue to follow for discharge planning.
--- NOTE | 2021-05-21 11:54 | PDOC ---
Date of Service: DATE: 05/21/21 TIME: 11:49 Objective: Objective: D/w nurse - bilious NGT output, not sure how much but continuous/ongoing. Vital Signs: Vital Signs Date Time Temp Pulse Resp B/P (MAP) Pulse Ox O2 Delivery O2 Flow Rate FiO2 05/21/21 11:17 61 157/63 05/21/21 08:58 100 Ventilator 05/21/21 07:00 12 05/21/21 04:00 97.8 97.8 Labs: Laboratory Tests Test 05/20/21 17:59 05/20/21 21:06 05/20/21 23:45 05/21/21 05:24 Glucose (Fingerstick) 139 mg/dL 136 mg/dL 133 mg/dL Sodium Level 138 mmol/L Potassium Level 3.4 mmol/L Chloride Level 105 mmol/L Carbon Dioxide Level 19 mmol/L Anion Gap 14 Blood Urea Nitrogen 36 mg/dL Creatinine 2.5 mg/dL Estimated GFR (Cockcroft-Gault) 30.7 Glucose Level 143 mg/dL Calcium Level 8.2 mg/dL Albumin 1.3 g/dL Test 05/21/21 05:49 Glucose (Fingerstick) 139 mg/dL Imaging: KUB 05/19 IMPRESSION: Abnormal bowel gas pattern appears worse and is likely an ileus. A distal partial small bowel obstruction is felt be less likely. PE: GEN: chronically ill LUNGS: trach/coarse HEART: RRR ABD: quiet, some distention, NGT bilious NEURO/PSYCH: awake A/P: COVID-19/resp failure s/p trach Ileus ACD/JENN, h/o GERD -- ?repeat KUB Continue NGT suction. PEG on hold. Justicifation of Admission Dx: Justifications for Admission: Justification of Admission Dx: Yes Aspiration Pneumonia: Hemodynamic Instability TAIWO THEODORE May 21, 2021 11:54
[2021-05-21] MEDS: INSULIN GLARGINE SYRINGE. SQ SCH (21:28)
[2021-05-21] MEDS: ATORVASTATIN CALCIUM 40 MG TABLET. PO SCH (21:30)
[2021-05-21] MEDS: MONTELUKAST SODIUM 10 MG TABLET. PO SCH (21:33)
[2021-05-22] VITALS (23 sets, daily range): BP systolic 79–182; BP diastolic 45–88
[2021-05-22] MEDS: DEXMEDETOMIDINE 400 MCG in IV NORMAL SALINE 100ML 96 ML IV PRN ×7 (02:01→22:24)
[2021-05-22] MEDS: IV NORMAL SALINE 1000ML BAG 1,000 ML IV SCH ×2 (03:50→18:28)
[2021-05-22] MEDS: INSULIN LISPRO 300 UNITS/3 ML VIAL. SQ SCH ×3 (06:00→17:56)
[2021-05-22] MEDS: METOPROLOL IV PUSH 5 MG/5 ML VIAL. IVP SCH ×5 (06:00→18:00)
[2021-05-22 06:16] LABS: BASO # 0.1 x10^3/uL (0.0-0.2); BASO % 1 % (0-3); EOS # 0.9 x10^3/uL (0.0-0.7); EOS % 6 % (0-3); HEMATOCRIT 24.9 % (39.0-53.0); LYMPH # 2.5 x10^3/uL (1.0-4.8); LYMPH % 17 % (24-48); MEAN CORPUSCULAR HEMOGLOBIN 27 pg (25-35); MEAN CORPUSCULAR HGB CONC 32 g/dL (31-37); MEAN CORPUSCULAR VOLUME 84 fL (79-100); MONO # 1.4 x10^3/uL (0.0-1.1); MONO % 10 % (0-9); NEUT # 9.7 x10^3/uL (1.8-7.7); NEUT % 66 % (31-73); PLATELET COUNT 158 x10^3/uL (140-400); RED BLOOD COUNT 2.97 x10^6/uL (4.30-5.70); RED CELL DISTRIBUTION WIDTH 16.6 % (11.5-14.5); WHITE BLOOD COUNT 14.6 x10^3/uL (4.0-11.0)
[2021-05-22 06:29] LABS: MAGNESIUM 1.6 mg/dL (1.8-2.4); PHOSPHORUS 5.3 mg/dL (2.6-4.7)
[2021-05-22 06:32] LABS: ALBUMIN 1.4 g/dL (3.4-5.0); ALBUMIN/GLOBULIN RATIO 0.3 (1.0-1.7); CALCIUM 8.5 mg/dL (8.5-10.1); CREATININE 2.7 mg/dL (0.7-1.3); GFR 28.1; POTASSIUM 3.7 mmol/L (3.5-5.1); TOTAL BILIRUBIN 0.7 mg/dL (0.2-1.0); TOTAL PROTEIN 5.7 g/dL (6.4-8.2)
--- NOTE | 2021-05-22 07:56 | PDOC ---
[employer] PROGRESS NOTE Date of Service DOS: DATE: 05/22/21 TIME: 07:54 Chief Complaint Chief Complaint Respiratory failure requiring intubation COVID-19 Acute IN A. fib SIRS Hypertension with hypertensive urgency Hyperlipidemia CKD Diabetes History of bilateral subclavian stenosis History of marijuana use Severe protein calorie malnutrition Trach placed on May 15 GI consulted for PEG evaluation --> patient with a lot of vomiting yesterday thus current NG tube to low intermittent suction History of Present Illness History of Present Illness 05/22/2021: Afebrile. On vent with FiO2 40%, PEEP 5. Continues to have excessive NG output. Continue NG tube to suction for now; PEG on hold for now. Continue hemodialysis, per nephrology. Continue IV antibiotics, per ID. Social work helping with discharge planning to LTACH likely in the near future after PEG is placed. Critical care time 30 minutes spent reviewing charts, reviewing labs, reviewing imaging, discussion with RN. 05/21/2021: Afebrile, no acute events overnight. Remains on vent, FiO2 40%, PEEP 5. S/P tracheostomy on 05/15/2021. KUB on 05/19/2021 consistent with ileus. Per GI, continue NG tube to suction and parenteral nutrition for now. Continue IV antibiotics, per ID. Continue hemodialysis, per nephrology. Continue supportive care. Critical care time 30 minutes spent reviewing charts, reviewing imaging, reviewing labs, and discussed with RN. 05/20/21 Patient seen and examined at bedside. Again had multiple bouts of vomiting yesterday. GI continuing to follow for PEG evaluation although on hold right now due to persistent vomiting. Leukocytosis does persist but patient afebrile. Plan of care discussed with bedside RN 05/19/21 Patient seen and examined at bedside. Apparently had a fair bit of vomiting overnight. GI following for PEG evaluation. Otherwise patient remained stable. Plan of care discussed with bedside nurse. 05/18/21 Patient seen and examined at bedside. Attempting to increase tube feeds, GI consulted for PEG evaluation. Otherwise no major clinical changes. Continue to wean sedation. Plan of care discussed with bedside nurse. 05/17/21 Patient seen and examined at bedside. Attempting to wean sedation. Patient with some diarrhea. Per infectious disease will give erythromycin eye ointment for eye lesions. Nephro and pulm also following. Continue sedation weaning, plan of care discussed with bedside nurse. 05/16/21 Patient seen and examined at bedside. Underwent tracheostomy yesterday today tolerated well. When seen this morning patient is still notably sedated respiratory status is stable. Continue antibiotics and supportive measures. Plan of care discussed with bedside nurse. Attempt to wean sedation. 05/15/21 Patient seen and examined at bedside Remains intubated and sedated planning for tracheostomy today Continue current respiratory support; continue antibiotics, continue sedation Follow recommendations of pulmonary, renal, and infectious disease Plan of care discussed with bedside nurse Will follow up with patient after surgery today 05/14/21 Patient seen and examined at bedside Remains intubated and sedated planning for tracheostomy tomorrow Continue current respiratory support; continue antibiotics, continue sedation Follow recommendations of pulmonary, renal, and infectious disease Plan of care discussed with bedside nurse 05/13/2021 did not tolerate sedation vacation 05/11/2021, profoundly hypertensive ABG/CXR--changes as needed Continue iv cefepime , add zyvox, sputum culture VENT [id number]%, 5 of PEEP Mild pulmonary edema with new small right pleural effusion and basilar opacities now on cardene gtt prn Patient seen and examined in the [place] [address] ICU remains mechanically ventilated ILDA on CKD - ATN 2/2 sepsis/ Hypotension,UOP good,on IV Lasix ; requiring dialysis, Sedated with propofol Dex and fentanyl Chart reviewed Discussed with RN He remains critically ill intubated/sedated cont cardene gtt not able to tolerate PS trial 05/06/21 Change central line and send cath tip for cultures. 05-09 C. difficile PCR ADELSO AVILA MD ORDERED: BCULT Procedure Result BLOOD CULTURE Final NO GROWTH AFTER 5 DAYS JONES FISHMAN MD, CHRISTOPHER S MD BLOOD CULTURE Preliminary NO GROWTH AFTER 4 DAYS 37 min cc time 05/12/2021 Continue iv cefepime , add zyvox, sputum culture VENT [id number]%, 5 of PEEP Mild pulmonary edema with new small right pleural effusion and basilar opacities now on cardene gtt prn Patient seen and examined in the [place] [address] ICU remains mechanically ventilated ILDA on CKD - ATN 2/2 sepsis/ Hypotension,UOP good,on IV Lasix ; requiring dialysis, Sedated with propofol Dex and fentanyl Chart reviewed Discussed with RN He remains critically ill intubated/sedated cont cardene gtt not able to tolerate PS trial 05/06/21 Change central line and send cath tip for cultures. 05-09 C. difficile PCR JONES FISHMAN MD, CHRISTOPHER S MD SISILLO, SABATO MD ORDERED: BCULT -------- ---- Procedure Result BLOOD CULTURE Preliminary NO GROWTH AFTER 2 DAYS BLOOD CULTURE Preliminary NO GROWTH AFTER 4 DAYS 33 min cc time 05/11/2021 Continue iv cefepime , add zyvox, sputum culture VENT [id number]%, 5 of PEEP Mild pulmonary edema with new small right pleural effusion and basilar opacities now on cardene gtt prn Patient seen and examined in the [place] [address] ICU remains mechanically ventilated ILDA on CKD - ATN 2/2 sepsis/ Hypotension,UOP good,on IV Lasix ; requiring dialysis, Sedated with propofol Dex and fentanyl Chart reviewed Discussed with RN He remains critically ill intubated/sedated cont cardene gtt not able to tolerate PS trial 05/06/21 Change central line and send cath tip for cultures. 05-09 C. difficile PCR JONES FISHMAN MD,ADELSO DASILVA MD, MD ORDERED: BCULT Procedure Result BLOOD CULTURE Preliminary NO GROWTH AFTER 2 DAYS BLOOD CULTURE Preliminary NO GROWTH AFTER 4 DAYS 36 min cc time 05/10/2021 VENT [id number]%, 5 of PEEP Mild pulmonary edema with new small right pleural effusion and basilar opacities now on cardene gtt prn Patient seen and examined in the [facility] remains mechanically ventilated ILDA on CKD - ATN 2/2 sepsis/ Hypotension,UOP good,on IV Lasix ; requiring dialysis, Sedated with propofol Dex and fentanyl Chart reviewed Discussed with RN He remains critically ill intubated/sedated cont cardene gtt not able to tolerate PS trial 05/06/21 Change central line and send cath tip for cultures. 05-09 C. difficile PCR JONES FISHMAN MD,ADELSO DASILVA MD, MD ORDERED: BCULT Procedure Result BLOOD CULTURE Preliminary NO GROWTH AFTER 2 DAYS BLOOD CULTURE Preliminary NO GROWTH AFTER 4 DAYS 33 min cc time 05/09/2021 VENT [id number]%, 5 of PEEP Mild pulmonary edema with new small right pleural effusion and basilar opacities now on cardene gtt prn Patient seen and examined in the [facility] remains mechanically ventilated ILDA on CKD - ATN 2/2 sepsis/ Hypotension,UOP good,on IV Lasix ; requiring dialysis, Sedated with propofol Dex and fentanyl Chart reviewed Discussed with RN He remains critically ill intubated/sedated cont cardene gtt not able to tolerate PS trial 05/06/21 Change central line and send cath tip for cultures. 05-09 C. difficile PCR JONES FISHMAN MD,BRIAN AVILA,ADELSO POTTER ORDERED: BCULT Procedure Result BLOOD CULTURE Preliminary NO GROWTH AFTER 2 DAYS BLOOD CULTURE Preliminary NO GROWTH AFTER 4 DAYS 37 min cc time 05/08/2021 Currently on 40%, 5 of PEEP now on cardene gtt Patient seen and examined in the [place] [address] ICU remains mechanically ventilated ILDA on CKD - ATN 2/2 sepsis/ Hypotension,UOP good,on IV Lasix ; requiring dialysis, AC/20/500/40 percent with 5 of PEEP Sedated with propofol Dex and fentanyl Chart reviewed Discussed with RN He remains critically ill intubated/sedated cont cardene gtt not able to tolerate PS trial 05/06/21 JONES FISHMAN MD,BRIAN AVILA,ADELSO POTTER ORDERED: BCULT Procedure Result BLOOD CULTURE Preliminary NO GROWTH AFTER 2 DAYS BLOOD CULTURE Preliminary NO GROWTH AFTER 4 DAYS 33 min cc time 05/07/2021 Patient seen and examined in the [place] [address] ICU He remains mechanically ventilated ILDA on CKD - ATN 2/2 sepsis/ Hypotension,UOP good,on IV Lasix ; requiring dialysis, AC/20/500/40 percent with 5 of PEEP Sedated with propofol Dex and fentanyl Chart reviewed Discussed with RN He remains critically ill intubated/sedated cont cardene gtt not able to tolerate PS trial 05/06/21 JONES FISHMAN MD,BRIAN AVILA,ADELSO POTTER ORDERED: BCULT Procedure Result BLOOD CULTURE Preliminary NO GROWTH AFTER 2 DAYS 36 min cc time 05/06/2021 Patient seen and examined in the [place] [address] ICU He remains mechanically ventilated AC/20/500/40 percent with 5 of PEEP Sedated with propofol Dex and fentanyl Chart reviewed Discussed with RN He remains critically ill 05/05/2020 Patient seen and examined in the [place] [address] ICU He remains on the vent AC/20/500/40 percent with 5 of PEEP Discussed with RN Chart reviewed Has SCDs in place Nieves to bedside drainage He remains critically ill 05/04/2021 Patient seen and examined in the [place] [address] ICU Still intubated Sedated with propofol and fentanyl AC/20/500/70 percent with 5 of PEEP On dialysis currently Has SCDs in Nieves to bedside drainage Discussed with RN Chart reviewed 05/03/2021 Patient seen and examined in the [place] [address] ICU He is still intubated AC/20/500/70 percent with 5 of PEEP Has SCDs in place Nieves to bedside drainage Sedated with fentanyl Versed and propofol Discussed are Chart reviewed Remains critically ill 05/02/2021 Patient seen and examined in the [place] [address] ICU He is sedated with propofol fentanyl and Versed Ventilator settings as follow AC/20/500/40 percent with 5 of PEEP Has Nieves to bedside drainage Chart reviewed Discussed with RN He remains critically ill 05/01/2021 Patient seen and examined in the [place] [address] ICU He is still intubated AC/20/500/40 percent with 5 of PEEP In A. fib Sedated with propofol fentanyl and Versed Has a heparin drip Missy with RN Chart reviewed He remains critically 04/30/2020 Patient seen and examined in the [place] [address] ICU He remains on the vent AC/20/500/40 5% with 5 PEEP Currently on dialysis Has OG feeds running Has a Nieves to bedside drainage Sedated with propofol and fentanyl Reviewed chart Discussed with RN He remains critically ill Mr Cunha is a 75 yo male w/ PMHx CAD, HTN, Hyperlipidemia, subclavian steel syndrome, subclavian stenosis s/p left subclavian sent placement complicated by retroperitoneal hematoma s/p evacuation in 08/2015), asthma, BART, CKD, DM2 who presented from home with home health care noted that he was short of breath and valverde with O2 saturations less than 89% as low as 84% not improved with nasal cannulated oxygen placed on CPAP and brought to ED for further care. He was just discharged from the hospital a week ago on April 19, 2021 for abdominal pain and was going for further cardiac testing with outpatient stress testing scheduled on May 28, 2021. Had echocardiogram April 17, 2021 with normal-appearing EF with moderate concentric LVH no significant valvular abnormalities. WBC 20, Hb 10.7, platelets 268, NA 140, K3.8, BUN 21, CR 2.9, glucose 162, albumin 3, troponin I 1.372, NT proBNP 33,318. EKG appears sinus tachycardia rate of 105 bpm with multiple PACs small ST depressions in lead II and V5. TWI in V6. Chest radiograph with diffuse interstitial and alveolar opacities and ET tube 5.8 cm above the leilani. Due to worsening respiratory status ED physician elected to intubate patient. Seen postintubation. Blood pressure little low after propofol bolus, but improved. Significant white frothy sputum per ET tube. Admitted to ICU for further care 04/29/2021: Afebrile, remains on vent at FiO2 45%, PEEP 5. WBC 20.4. Hemodialysis per nephrology. We will continue treatment with empiric antibiotics, remdesivir, and steroids. Continue heparin infusion and supportive care. Critical care time 30 minutes reviewing chart, review labs, review imaging, discussion with RN. 04/28/2021: Afebrile. FiO2 50%, PEEP 5. Nontunneled HD catheter placed yesterday due to worsening kidney function; eGFR 16 (CKD4). Chest x-ray showed unchanged interstitial opacities. Continue empiric antibiotics, steroids, and remdesivir. Continue heparin infusion, and continue to follow cardiology recommendations on new diagnosis of A. fib. Critical care time 30 minutes reviewing chart, review labs, review imaging, discussion with RN. 04/27/2021: Afebrile. On vent with FiO2 50%, PEEP 5. Troponin 2.8 yesterday; probable type II, demand ischemia. New onset A. fib. Continue heparin drip and as needed digoxin, per cardiology. Continue treatment with remdesivir, steroids, and prophylactic antibiotics. CBG 323 this morning; will add basal insulin. Critical care 30 minutes spent reviewing labs, reviewing imaging, reviewing charts, and discussion with RN. 04/26/2021: COVID-19 positive. Febrile overnight that was managed with cooling blankets. On vent with FiO2 50%, PEEP 5. Per cardiology, elevated troponins likely secondary to demand ischemia; continue heparin drip per cardiology. Maintain fluid balance and avoid nephrotoxins. Continue treatment with remdesivir, steroids, and prophylactic antibiotics. 30 minutes critical care time spent reviewing charts, reviewing labs, reviewing imaging, and discussion with RN. 04/25/2021: On vent FiO2 50, PEEP 5. Febrile, T-max 103.3. Patient was initiated on cooling blankets. Procalcitonin 0.13. Continue coverage for hospital-acquired pneumonia with cefepime. MRSA PCR pending. Critical care time 30 minutes spent reviewing charts, reviewing labs, review of imaging, discussion with RN. Vitals/I&O Vitals/I&O: Vital Signs Date Time Temp Pulse Resp B/P (MAP) Pulse Ox O2 Delivery O2 Flow Rate FiO2 05/22/21 04:40 100 Ventilator 05/22/21 03:00 46 12 94/46 (62) 05/22/21 00:00 97.9 97.9 I & O 05/21/21 05/21/21 05/22/21 15:00 23:00 07:00 Intake Total 60 ml 1236 ml 0 ml Output Total 220 ml 150 ml 155 ml Balance -160 ml 1086 ml -155 ml Physical Exam Physical Exam: GENERAL: Well-developed and well-nourished male, intubated, HEENT: Normocephalic, atraumatic, redness and erythema of both eyes left greater than right ETT and OGT present. NECK: right dialysis catheter present clean,central line changed ( 05/11) HEART: S1, S2. LUNGS: Decreased breath sounds. ABDOMEN: distended,hypoactive BS GENITOURINARY: Nieves in place. EXTREMITIES: Edema present. DERMATOLOGIC: Warm, dry, no generalized rash. NEUROLOGIC: Intubated. PICC line clean General: No acute distress, Other (Answering some questions when awake) Heart: Regular rate, Normal S1, Normal S2 Lungs: Clear Abdomen: Normal bowel sounds, Other (ND) Extremities: No clubbing, No cyanosis, Other (Lower extremity edema) Skin: No rashes, No breakdown, No significant lesion Labs Labs: Laboratory Tests Test 05/21/21 13:18 05/21/21 17:25 05/22/21 06:00 05/22/21 06:04 Glucose (Fingerstick) 143 mg/dL (70-99) 122 mg/dL (70-99) 134 mg/dL (70-99) White Blood Count 14.6 x10^3/uL (4.0-11.0) Red Blood Count 2.97 x10^6/uL (4.30-5.70) Hemoglobin 8.0 g/dL (13.0-17.5) Hematocrit 24.9 % (39.0-53.0) Mean Corpuscular Volume 84 fL (79-100) Mean Corpuscular Hemoglobin 27 pg (25-35) Mean Corpuscular Hemoglobin Concent 32 g/dL (31-37) Red Cell Distribution Width 16.6 % (11.5-14.5) Platelet Count 158 x10^3/uL (140-400) Neutrophils (%) (Auto) 66 % (31-73) Lymphocytes (%) (Auto) 17 % (24-48) Monocytes (%) (Auto) 10 % (0-9) Eosinophils (%) (Auto) 6 % (0-3) Basophils (%) (Auto) 1 % (0-3) Neutrophils # (Auto) 9.7 x10^3/uL (1.8-7.7) Lymphocytes # (Auto) 2.5 x10^3/uL (1.0-4.8) Monocytes # (Auto) 1.4 x10^3/uL (0.0-1.1) Eosinophils # (Auto) 0.9 x10^3/uL (0.0-0.7) Basophils # (Auto) 0.1 x10^3/uL (0.0-0.2) Sodium Level 140 mmol/L (136-145) Potassium Level 3.7 mmol/L (3.5-5.1) Chloride Level 105 mmol/L (98-107) Carbon Dioxide Level 19 mmol/L (21-32) Anion Gap 16 (6-14) Blood Urea Nitrogen 38 mg/dL (8-26) Creatinine 2.7 mg/dL (0.7-1.3) Estimated GFR (Cockcroft-Gault) 28.1 BUN/Creatinine Ratio 14 (6-20) Glucose Level 133 mg/dL (70-99) Calcium Level 8.5 mg/dL (8.5-10.1) Phosphorus Level 5.3 mg/dL (2.6-4.7) Magnesium Level 1.6 mg/dL (1.8-2.4) Total Bilirubin 0.7 mg/dL (0.2-1.0) Aspartate Amino Transf (AST/SGOT) 31 U/L (15-37) Alanine Aminotransferase (ALT/SGPT) 22 U/L (16-63) Alkaline Phosphatase 81 U/L (46-116) Total Protein 5.7 g/dL (6.4-8.2) Albumin 1.4 g/dL (3.4-5.0) Albumin/Globulin Ratio 0.3 (1.0-1.7) Assessment and Plan Assessmemt and Plan Problems Medical Problems: (1) Elevated troponin Status: Acute (2) Person under investigation for COVID-19 Status: Acute (3) Pulmonary edema Status: Acute Comment Review of Relevant I have reviewed the following items juanita (where applicable) has been applied. Medications: Current Medications Medications (Trade) Dose Ordered Sig/Jodie Route PRN Reason Start Time Stop Time Status Last Admin Dose Admin Lorazepam (Ativan Inj) 0.25 mg PRN Q4HRS PRN IVP ANXIETY / AGITATION 05/21/21 09:00 05/21/21 13:05 Potassium Chloride/Water 100 ml @ 100 mls/hr 1X ONCE IV 05/21/21 10:30 05/21/21 11:29 DC 05/21/21 11:09 Justifications for Admission General Conditions Altered mental status?: Yes Justification of admission: Patient has tachycardia (> 100 beats per minute) or hypotension (SBP < 90 mm Hg) leading to inadequate systemic perfusion as indicated by severe/persistent altered mental status. Other Justification ILDA SARAH BETH CARRASCO MD May 22, 2021 07:56
[2021-05-22] MEDS: ASPIRIN CHEWABLE 81 MG TABLET. PO SCH (08:00)
[2021-05-22] MEDS: PANTOPRAZOLE IV PUSH 40 MG VIAL. IVP SCH (08:10)
[2021-05-22] MEDS: MEROPENEM 500 MG in IV NORMAL SALINE 50ML 50 ML IV SCH ×2 (08:11→21:16)
[2021-05-22] MEDS: hydrALAZINE 25 MG TABLET PO SCH ×2 (08:11→13:00)
[2021-05-22] MEDS: ERYTHROMYCIN 0.5% OPHTH OINTMENT 1GM TUBE. OU SCH ×2 (08:11→21:16)
[2021-05-22] MEDS: AMIODARONE HCL 200 MG TABLET. PO SCH (08:11)
--- NOTE | 2021-05-22 08:11 | PDOC ---
Infectious Disease Note Subjective: Subjective Pt remains intubated afebrile Remains on NG tube suction d/W nursing staff Vital Signs: Vital Signs Vital Signs Date Time Temp Pulse Resp B/P (MAP) Pulse Ox O2 Delivery O2 Flow Rate FiO2 05/22/21 06:00 66 13 120/50 (73) 100 CPAP/Spontaneous 05/22/21 04:00 98.0 98.0 Physical Exam: PHYSICAL EXAM GENERAL: Well-developed and well-nourished male, intubated, HEENT: Normocephalic, atraumatic, redness and erythema of both eyes improved, NG tube present NECK: right dialysis catheter present clean,central line changed ( 05/11) HEART: S1, S2. LUNGS: Decreased breath sounds. ABDOMEN: distended,hypoactive BS GENITOURINARY: Nieves in place. EXTREMITIES: Edema present. DERMATOLOGIC: Warm, dry, no generalized rash. NEUROLOGIC: Intubated. PICC line clean Medications: Inpatient Meds: Medications reviewed. Labs: Lab Laboratory Tests Test 05/21/21 13:18 05/21/21 17:25 05/22/21 06:00 05/22/21 06:04 Glucose (Fingerstick) 143 mg/dL (70-99) 122 mg/dL (70-99) 134 mg/dL (70-99) White Blood Count 14.6 x10^3/uL (4.0-11.0) Red Blood Count 2.97 x10^6/uL (4.30-5.70) Hemoglobin 8.0 g/dL (13.0-17.5) Hematocrit 24.9 % (39.0-53.0) Mean Corpuscular Volume 84 fL (79-100) Mean Corpuscular Hemoglobin 27 pg (25-35) Mean Corpuscular Hemoglobin Concent 32 g/dL (31-37) Red Cell Distribution Width 16.6 % (11.5-14.5) Platelet Count 158 x10^3/uL (140-400) Neutrophils (%) (Auto) 66 % (31-73) Lymphocytes (%) (Auto) 17 % (24-48) Monocytes (%) (Auto) 10 % (0-9) Eosinophils (%) (Auto) 6 % (0-3) Basophils (%) (Auto) 1 % (0-3) Neutrophils # (Auto) 9.7 x10^3/uL (1.8-7.7) Lymphocytes # (Auto) 2.5 x10^3/uL (1.0-4.8) Monocytes # (Auto) 1.4 x10^3/uL (0.0-1.1) Eosinophils # (Auto) 0.9 x10^3/uL (0.0-0.7) Basophils # (Auto) 0.1 x10^3/uL (0.0-0.2) Sodium Level 140 mmol/L (136-145) Potassium Level 3.7 mmol/L (3.5-5.1) Chloride Level 105 mmol/L (98-107) Carbon Dioxide Level 19 mmol/L (21-32) Anion Gap 16 (6-14) Blood Urea Nitrogen 38 mg/dL (8-26) Creatinine 2.7 mg/dL (0.7-1.3) Estimated GFR (Cockcroft-Gault) 28.1 BUN/Creatinine Ratio 14 (6-20) Glucose Level 133 mg/dL (70-99) Calcium Level 8.5 mg/dL (8.5-10.1) Phosphorus Level 5.3 mg/dL (2.6-4.7) Magnesium Level 1.6 mg/dL (1.8-2.4) Total Bilirubin 0.7 mg/dL (0.2-1.0) Aspartate Amino Transf (AST/SGOT) 31 U/L (15-37) Alanine Aminotransferase (ALT/SGPT) 22 U/L (16-63) Alkaline Phosphatase 81 U/L (46-116) Total Protein 5.7 g/dL (6.4-8.2) Albumin 1.4 g/dL (3.4-5.0) Albumin/Globulin Ratio 0.3 (1.0-1.7) Objective: Assessment: 1. Febrile illness could be healthcare-associated infection,resolved 2. Leukocytosis, was on steroids,ileus could contribute 3. COVID-19 pneumonia. 4. Acute hypoxic respiratory failure status post intubation. 5. Congestive heart failure, acute on chronic. 6. Acute kidney injury on chronic kidney disease on hemodialysis. 7. Diabetes mellitus 2. 8. Atrial fibrillation. 9. Anemia. 10. Protein-calorie malnutrition. 11. Hypertention 12.Hyponatremia 13. Ileus, Bowel obstruction 14.on PPN Plan: Plan of Care 1. Continue Meropenem renal dosing as needed,pharmacy to assist off Zyvox. Maintain aspiration precautions. 2. Follow-up labs and cultures. 3. Central line changed on 05/11,C. difficile PCR negative 4. Continue supportive care. 5 Critically ill. 6. Local eye care DC erythromycin ointment after 7 days of treatment 7. maintain aspiration precautions Discussed with nursing staff ALAYNA RIVERO MD May 22, 2021 08:11
[2021-05-22] MEDS: NYSTATIN TOPICAL POWDER 15GM BOTTLE. TP SCH ×2 (08:12→21:20)
[2021-05-22] MEDS: HEPARIN for SUB-Q USE 5,000 UNIT/ML VIAL. SQ SCH ×3 (08:14→21:21)
--- NOTE | 2021-05-22 09:56 | PDOC ---
PULMONARY PROGRESS NOTES DATE: 05/22/21 TIME: 09:54 Subjective Pt. is currently on PS 10/5,40% tolerating well nursing reports that he has had 800cc from gastric tube no overnight concerns Vitals Vital Signs Date Time Temp Pulse Resp B/P (MAP) Pulse Ox O2 Delivery O2 Flow Rate FiO2 05/22/21 08:25 100 Ventilator 05/22/21 08:12 45 99/47 05/22/21 08:00 96.0 12 96.0 Comments Awake and follows some commands. No obvious respiratory distress HEENT: Other (Trachea midline) Lungs: Clear Cardiovascular: S1, S2 Abdomen: Soft Extremities: No Edema Labs Laboratory Tests Test 05/20/21 11:34 05/20/21 17:59 05/20/21 21:06 05/20/21 23:45 Glucose (Fingerstick) 126 mg/dL (70-99) 139 mg/dL (70-99) 136 mg/dL (70-99) 133 mg/dL (70-99) Test 05/21/21 05:24 05/21/21 05:49 05/21/21 13:18 05/21/21 17:25 Sodium Level 138 mmol/L (136-145) Potassium Level 3.4 mmol/L (3.5-5.1) Chloride Level 105 mmol/L (98-107) Carbon Dioxide Level 19 mmol/L (21-32) Anion Gap 14 (6-14) Blood Urea Nitrogen 36 mg/dL (8-26) Creatinine 2.5 mg/dL (0.7-1.3) Estimated GFR (Cockcroft-Gault) 30.7 Glucose Level 143 mg/dL (70-99) Calcium Level 8.2 mg/dL (8.5-10.1) Albumin 1.3 g/dL (3.4-5.0) Glucose (Fingerstick) 139 mg/dL (70-99) 143 mg/dL (70-99) 122 mg/dL (70-99) Test 05/22/21 06:00 05/22/21 06:04 White Blood Count 14.6 x10^3/uL (4.0-11.0) Red Blood Count 2.97 x10^6/uL (4.30-5.70) Hemoglobin 8.0 g/dL (13.0-17.5) Hematocrit 24.9 % (39.0-53.0) Mean Corpuscular Volume 84 fL (79-100) Mean Corpuscular Hemoglobin 27 pg (25-35) Mean Corpuscular Hemoglobin Concent 32 g/dL (31-37) Red Cell Distribution Width 16.6 % (11.5-14.5) Platelet Count 158 x10^3/uL (140-400) Neutrophils (%) (Auto) 66 % (31-73) Lymphocytes (%) (Auto) 17 % (24-48) Monocytes (%) (Auto) 10 % (0-9) Eosinophils (%) (Auto) 6 % (0-3) Basophils (%) (Auto) 1 % (0-3) Neutrophils # (Auto) 9.7 x10^3/uL (1.8-7.7) Lymphocytes # (Auto) 2.5 x10^3/uL (1.0-4.8) Monocytes # (Auto) 1.4 x10^3/uL (0.0-1.1) Eosinophils # (Auto) 0.9 x10^3/uL (0.0-0.7) Basophils # (Auto) 0.1 x10^3/uL (0.0-0.2) Sodium Level 140 mmol/L (136-145) Potassium Level 3.7 mmol/L (3.5-5.1) Chloride Level 105 mmol/L (98-107) Carbon Dioxide Level 19 mmol/L (21-32) Anion Gap 16 (6-14) Blood Urea Nitrogen 38 mg/dL (8-26) Creatinine 2.7 mg/dL (0.7-1.3) Estimated GFR (Cockcroft-Gault) 28.1 BUN/Creatinine Ratio 14 (6-20) Glucose Level 133 mg/dL (70-99) Calcium Level 8.5 mg/dL (8.5-10.1) Phosphorus Level 5.3 mg/dL (2.6-4.7) Magnesium Level 1.6 mg/dL (1.8-2.4) Total Bilirubin 0.7 mg/dL (0.2-1.0) Aspartate Amino Transf (AST/SGOT) 31 U/L (15-37) Alanine Aminotransferase (ALT/SGPT) 22 U/L (16-63) Alkaline Phosphatase 81 U/L (46-116) Total Protein 5.7 g/dL (6.4-8.2) Albumin 1.4 g/dL (3.4-5.0) Albumin/Globulin Ratio 0.3 (1.0-1.7) Glucose (Fingerstick) 134 mg/dL (70-99) Laboratory Tests Test 05/21/21 13:18 05/21/21 17:25 05/22/21 06:00 05/22/21 06:04 Glucose (Fingerstick) 143 mg/dL (70-99) 122 mg/dL (70-99) 134 mg/dL (70-99) White Blood Count 14.6 x10^3/uL (4.0-11.0) Red Blood Count 2.97 x10^6/uL (4.30-5.70) Hemoglobin 8.0 g/dL (13.0-17.5) Hematocrit 24.9 % (39.0-53.0) Mean Corpuscular Volume 84 fL (79-100) Mean Corpuscular Hemoglobin 27 pg (25-35) Mean Corpuscular Hemoglobin Concent 32 g/dL (31-37) Red Cell Distribution Width 16.6 % (11.5-14.5) Platelet Count 158 x10^3/uL (140-400) Neutrophils (%) (Auto) 66 % (31-73) Lymphocytes (%) (Auto) 17 % (24-48) Monocytes (%) (Auto) 10 % (0-9) Eosinophils (%) (Auto) 6 % (0-3) Basophils (%) (Auto) 1 % (0-3) Neutrophils # (Auto) 9.7 x10^3/uL (1.8-7.7) Lymphocytes # (Auto) 2.5 x10^3/uL (1.0-4.8) Monocytes # (Auto) 1.4 x10^3/uL (0.0-1.1) Eosinophils # (Auto) 0.9 x10^3/uL (0.0-0.7) Basophils # (Auto) 0.1 x10^3/uL (0.0-0.2) Sodium Level 140 mmol/L (136-145) Potassium Level 3.7 mmol/L (3.5-5.1) Chloride Level 105 mmol/L (98-107) Carbon Dioxide Level 19 mmol/L (21-32) Anion Gap 16 (6-14) Blood Urea Nitrogen 38 mg/dL (8-26) Creatinine 2.7 mg/dL (0.7-1.3) Estimated GFR (Cockcroft-Gault) 28.1 BUN/Creatinine Ratio 14 (6-20) Glucose Level 133 mg/dL (70-99) Calcium Level 8.5 mg/dL (8.5-10.1) Phosphorus Level 5.3 mg/dL (2.6-4.7) Magnesium Level 1.6 mg/dL (1.8-2.4) Total Bilirubin 0.7 mg/dL (0.2-1.0) Aspartate Amino Transf (AST/SGOT) 31 U/L (15-37) Alanine Aminotransferase (ALT/SGPT) 22 U/L (16-63) Alkaline Phosphatase 81 U/L (46-116) Total Protein 5.7 g/dL (6.4-8.2) Albumin 1.4 g/dL (3.4-5.0) Albumin/Globulin Ratio 0.3 (1.0-1.7) Medications Active Scripts Medications Dose Route/Sig Max Daily Dose Days Date Category Glyburide 2.5 Mg Tablet 1 Tab PO DAILY 04/19/21 Rx Polyethylene Glycol 3350 17 Gm Powd.pack 17 Gm PO DAILY 04/19/21 Rx Dok (Docusate Sodium) 100 Mg Capsule 100 Mg PO PRN DAILY PRN 30 04/19/21 Rx Bisacodyl 5 Mg Tablet.dr 5 Mg PO PRN DAILY PRN 04/19/21 Rx Acetaminophen 325 Mg Tablet 650 Mg PO PRN Q4HRS PRN 04/19/21 Rx Aspirin Ec (Aspirin) 81 Mg Tablet.dr 81 Mg PO DAILYWBKFT 04/19/21 Rx Hydralazine Hcl 25 Mg Tablet 25 Mg PO QID 04/19/21 Rx Fenofibrate 54 Mg Tablet 1 Tab PO DAILY 04/17/21 Reported Potassium Chloride (Potassium Chloride) 20 Meq Tablet.er 20 Meq PO DAILY 04/17/21 Reported Coreg (Carvedilol) 12.5 Mg Tablet 37.5 Mg PO BIDWMEALS 04/17/21 Reported Rosuvastatin Calcium 40 Mg Tablet 40 Mg PO QHS 04/17/21 Reported Gabapentin (Gabapentin) 100 Mg Capsule 200 Mg PO BID 04/17/21 Reported Montelukast Sodium Tablet (Montelukast Sodium) 10 Mg Tablet 10 Mg PO HS 04/17/21 Reported Protonix (Pantoprazole Sodium) 20 Mg Tablet.dr 2 Tab PO DAILY 04/17/21 Reported Amlodipine Besylate 5 Mg Tablet 5 Mg PO DAILY 04/17/21 Reported Furosemide 40 Mg Tablet 1 Tab PO DAILY 04/17/21 Reported Proair Hfa Inhaler (Albuterol Sulfate) 8.5 Gm Hfa.aer.ad 2 Puff IH PRN Q4-6HRS PRN 21 04/16/21 Reported Advair 100-50 Diskus (Fluticasone/Salmeterol) 1 Each Disk.w.dev 1 Puff IH BID 04/16/21 Reported Comments Impression . IMPRESSION: 1. Acute hypoxic respiratory failure, multifactorial/COVID-19 viral pneumonia/ARDS, ongoing, intubated 04/25/2021, now status post tracheostomy 05/15/[address] chest with bilateral diffuse interstitial infiltrates without any significant pleural effusion 3. Leukocytosis, sepsis--improved 4. Non-ST segment elevation [place] 5. History of tobacco use, suspect COPD, unknown FEV1 6. Chronic kidney disease.== HD on hold 7. Metabolic acidosis multifactorial 8. Abnormal chest x-ray 9. Hypoglycemia, continue to monitor--- resolved 10. Hypotension, suspect volume deficit,/possible sepsis--- resolved 11. Fever--improved 12. Anemia--improved 13. Atrial fibrillation with rapid ventricular response, currently rate controlled Plan . Updated 05/22/21 S/P trach 05/15/2021 Continue current vent support, currently on PS 10/5 40%, tolerating well, PS during the day as tolerated AC [id number]/500/40%/5 unable to wean precedex 2/2 increased BP and HR Follow ABG/CXR--changes as needed Follow ID recs for ABX --continue meropenem Follow GI recs--now with ileus, PEG tube on hold, ongoing gastric output og to LIS Follow nephrology recs-- HD on hold, last HD was 05/12/21 Follow Cardiology recs--preserved LV function, hypertension, a-fib Continue TF for nutritional support--on hold , start TPN per RX DVT/GI PPX: sq heparin D/W RN and RT Pt. is DNR cct 30 min Updated 05/21/21 Continue current vent support, currently on PS 10/5 40%, tolerating well, PS during the day as tolerated AC [id number]/500/40%/5 Follow ABG/CXR--changes as needed Follow ID recs for ABX --continue meropenem Trach care daily and as needed Follow GI recs--now with ileus, PEG tube on hold Follow surgery recommendations S/P trach 05/15/2021 Follow nephrology recs-- HD on hold, last HD was 05/12/21 Follow Cardiology recs--preserved LV function, hypertension, a-fib Continue TF for nutritional support--on hold DVT/GI PPX:t sq heparin D/W RN and RT Pt. is DNR Social work for DC planning LTACH, planned to [facility] to [facility] cct 30 min Updated 05/20/21 Continue current vent support 20/500/40%/5 proceed with PS trial again today with special attention to heart rate., Follow ABG/CXR--changes as needed Follow ID recs for ABX --continue meropenem Trach care daily and as needed Follow GI recs planned for PEG tube on friday Follow surgery recommendations S/P trach 05/15/2021 Follow nephrology recs-- HD on hold, Monitor hemoglobin--stable-- Follow Cardiology recs--preserved LV function, hypertension, Continue TF for nutritional support DVT/GI PPX:t sq heparin D/W RN and RT Pt. is DNR Social work for DC planning LTACH, planned to [facility] to [facility] week after PEG is placed cct 30 min JONES FISHMAN MD May 22, 2021 09:56
--- NOTE | 2021-05-22 10:03 | PDOC ---
Date of Service: DATE: 05/22/21 TIME: 10:01 Objective: Objective: D/w nurse - ~1100cc from since 3:00 p.m. yesterday. Asking about meds through . On Precedex currently but not following commands when awake. Vital Signs: Vital Signs Date Time Temp Pulse Resp B/P (MAP) Pulse Ox O2 Delivery O2 Flow Rate FiO2 05/22/21 09:00 58 13 165/63 (97) 100 CPAP/Spontaneous 05/22/21 08:00 96.0 96.0 Labs: Laboratory Tests Test 05/21/21 13:18 05/21/21 17:25 05/22/21 06:00 05/22/21 06:04 Glucose (Fingerstick) 143 mg/dL 122 mg/dL 134 mg/dL White Blood Count 14.6 x10^3/uL Red Blood Count 2.97 x10^6/uL Hemoglobin 8.0 g/dL Hematocrit 24.9 % Mean Corpuscular Volume 84 fL Mean Corpuscular Hemoglobin 27 pg Mean Corpuscular Hemoglobin Concent 32 g/dL Red Cell Distribution Width 16.6 % Platelet Count 158 x10^3/uL Neutrophils (%) (Auto) 66 % Lymphocytes (%) (Auto) 17 % Monocytes (%) (Auto) 10 % Eosinophils (%) (Auto) 6 % Basophils (%) (Auto) 1 % Neutrophils # (Auto) 9.7 x10^3/uL Lymphocytes # (Auto) 2.5 x10^3/uL Monocytes # (Auto) 1.4 x10^3/uL Eosinophils # (Auto) 0.9 x10^3/uL Basophils # (Auto) 0.1 x10^3/uL Sodium Level 140 mmol/L Potassium Level 3.7 mmol/L Chloride Level 105 mmol/L Carbon Dioxide Level 19 mmol/L Anion Gap 16 Blood Urea Nitrogen 38 mg/dL Creatinine 2.7 mg/dL Estimated GFR (Cockcroft-Gault) 28.1 BUN/Creatinine Ratio 14 Glucose Level 133 mg/dL Calcium Level 8.5 mg/dL Phosphorus Level 5.3 mg/dL Magnesium Level 1.6 mg/dL Total Bilirubin 0.7 mg/dL Aspartate Amino Transf (AST/SGOT) 31 U/L Alanine Aminotransferase (ALT/SGPT) 22 U/L Alkaline Phosphatase 81 U/L Total Protein 5.7 g/dL Albumin 1.4 g/dL Albumin/Globulin Ratio 0.3 PE: GEN: chronically ill LUNGS: trach/vent HEART: RR ABD: large, fairly soft, quiet NEURO/PSYCH: sedated A/P: COVID-19/resp failure s/p trach Ileus -- Continue NGT suction, consider changing meds to IV if able. Justicifation of Admission Dx: Justifications for Admission: Justification of Admission Dx: Yes Aspiration Pneumonia: Hemodynamic Instability TAIWO THEODORE May 22, 2021 10:03
[2021-05-22] MEDS ORDERED: MAGNESIUM SULFATE 2GM 50 ML IV ONE ×2 (10:30→11:30)
--- NOTE | 2021-05-22 11:30 | PDOC ---
Renal-Progress Notes Subjective Notes Notes NO NEW COMPLAINTS History of Present Illness Hx of present illness NO ACUTE CHANGES Vitals Vitals Vital Signs Date Time Temp Pulse Resp B/P (MAP) Pulse Ox O2 Delivery O2 Flow Rate FiO2 05/22/21 11:00 90 15 139/58 (85) 100 CPAP/Spontaneous 05/22/21 08:00 96.0 96.0 Weight Weight [ ] I.O. Intake and Output Intake and Output 05/22/21 07:00 Intake Total 1296 ml Output Total 525 ml Balance 771 ml Intake Oral 0 ml IV Total 1236 ml Tube Feeding 60 ml Output Urine Total 525 ml Labs Labs Laboratory Tests Test 05/21/21 13:18 05/21/21 17:25 05/22/21 06:00 05/22/21 06:04 Glucose (Fingerstick) 143 mg/dL (70-99) 122 mg/dL (70-99) 134 mg/dL (70-99) White Blood Count 14.6 x10^3/uL (4.0-11.0) Red Blood Count 2.97 x10^6/uL (4.30-5.70) Hemoglobin 8.0 g/dL (13.0-17.5) Hematocrit 24.9 % (39.0-53.0) Mean Corpuscular Volume 84 fL (79-100) Mean Corpuscular Hemoglobin 27 pg (25-35) Mean Corpuscular Hemoglobin Concent 32 g/dL (31-37) Red Cell Distribution Width 16.6 % (11.5-14.5) Platelet Count 158 x10^3/uL (140-400) Neutrophils (%) (Auto) 66 % (31-73) Lymphocytes (%) (Auto) 17 % (24-48) Monocytes (%) (Auto) 10 % (0-9) Eosinophils (%) (Auto) 6 % (0-3) Basophils (%) (Auto) 1 % (0-3) Neutrophils # (Auto) 9.7 x10^3/uL (1.8-7.7) Lymphocytes # (Auto) 2.5 x10^3/uL (1.0-4.8) Monocytes # (Auto) 1.4 x10^3/uL (0.0-1.1) Eosinophils # (Auto) 0.9 x10^3/uL (0.0-0.7) Basophils # (Auto) 0.1 x10^3/uL (0.0-0.2) Sodium Level 140 mmol/L (136-145) Potassium Level 3.7 mmol/L (3.5-5.1) Chloride Level 105 mmol/L (98-107) Carbon Dioxide Level 19 mmol/L (21-32) Anion Gap 16 (6-14) Blood Urea Nitrogen 38 mg/dL (8-26) Creatinine 2.7 mg/dL (0.7-1.3) Estimated GFR (Cockcroft-Gault) 28.1 BUN/Creatinine Ratio 14 (6-20) Glucose Level 133 mg/dL (70-99) Calcium Level 8.5 mg/dL (8.5-10.1) Phosphorus Level 5.3 mg/dL (2.6-4.7) Magnesium Level 1.6 mg/dL (1.8-2.4) Total Bilirubin 0.7 mg/dL (0.2-1.0) Aspartate Amino Transf (AST/SGOT) 31 U/L (15-37) Alanine Aminotransferase (ALT/SGPT) 22 U/L (16-63) Alkaline Phosphatase 81 U/L (46-116) Total Protein 5.7 g/dL (6.4-8.2) Albumin 1.4 g/dL (3.4-5.0) Albumin/Globulin Ratio 0.3 (1.0-1.7) Micro Micro Microbiology 05/11/21 Gram Stain Evaluation - Final, Complete 05/11/21 Respiratory Culture - Final, Complete 05/04/21 Gram Stain - Final, Complete 05/04/21 Aerobic Culture - Final, Complete 05/04/21 Blood Culture - Final, Complete NO GROWTH AFTER 5 DAYS Review of Systems Constitutional: yes: unresponsive, other Physical Exam General Appearance: other (ON THE VENT) Respiratory: decreased breath sounds Heart: S1S2 Abdomen: bowel sounds present Genitourinary: bladder flat Extremities: atrophy Neurology: other (sedated) Musculoskeletal: Other Assessment Assessment IMP HYPONATREMIA-RESOLVED HYPOKALEMIA-CORRECTED LOW MAG [id number] -CR STABLE AT 2.7 CKD - SUSPECT STAGE 3 ACUTE HYPOXIC RESP FAILURE COVID 19 PNEUMONIA MET ACIDOSIS-BETTER LEUCOCYTOSIS ANEMIA S/P TRACH DIARRHEA PLAN REPLACE MAG REMAINS CRITICALLY ILL VENT SUPPORT-FIO2 OF 40% CONT NEPRO TF PRESSORS NEEDED HD LAST ON SAT - CONT TO HOLD HD MAINTAIN HD LINE OFF HD FOR NOW CONT IVF LTAC TRANSFER PENDING WILL FOLLOW JEANINE NEWTON MD May 22, 2021 11:30
[2021-05-22] MEDS: TPN PER PHARMACY MC PRN (15:10)
--- NOTE | 2021-05-22 15:10 | NUR ---
Pharmacy TPN Dosing Note S: NILAM LAN is a 75 year old M Currently receiving Central Continuous TPN started 05/22/21 B:Pertinent PMH: ILEUS Height: 6 feet, 2 inches Weight: 155.9 kg Current diet: NPO LABS: Sodium: 140 Potassium: 3.7 Chloride: 105 Calcium: 8.5 Corrected Calcium: 10.58 Magnesium: 1.6 CO2: 19 SCr: 2.7 Glucose: 133, 134, 121 Albumin: 1.4 AST: 31 ALT: 22 TPN FORMULA: TPN TYPE: Central Continuous AMINO ACIDS: 60 gm DEXTROSE: 195 gm LIPIDS: 1 gm SODIUM CHLORIDE: 90 mEq POTASSIUM CHLORIDE: 25 mEq MAGNESIUM: 10 mEq CALCIUM: 5 mEq MULTIPLE VITAMIN: 5 ml TRACE ELEMENTS: 1 ml TPN PLAN: -Ileus, tube feeds on hold, start TPN with standard macros. -SCr has been elevated this admission, start TPN with KCl 25 mEq/day and close monitoring of renally cleared lytes. -Serum mag low, give 2g mag sulfate bolus before TPN start. -Serum phos high, start TPN with no phos. -BMP, mag, phos, TG tomorrow. R: Begin TPN @ 45 ml/hr and above formula. Will monitor electrolytes, glucose, and tolerance to TPN. PHILIPPE OROPEZA [facility], 05/22/21 1511
--- NOTE | 2021-05-22 16:04 | NUR ---
SS following up with discharge planning. SS reviewed pt chart and discussed with pt RN. Pt is currently on the vent at 40% on CPAP mode. COVID19 recovered. Trach in place. Pt on IV Meropenem. NG in place. Per RN, pt pending ileus resolution and peg placement. Pt on Fentanyl and Precedex. Pt accepted at [facility], ; fax [phone], pending insurance authorization. SS discussed with Jason at [facility] this morning. SS will continue to follow for discharge planning.
[2021-05-22] MEDS ORDERED: AMIODARONE 450 MG in IV DEXTROSE 5% 250 ML IV ONE (16:30)
[2021-05-22] MEDS: MONTELUKAST SODIUM 10 MG TABLET. PO SCH (21:16)
[2021-05-22] MEDS: ATORVASTATIN CALCIUM 40 MG TABLET. PO SCH (21:16)
[2021-05-22] MEDS: INSULIN GLARGINE SYRINGE. SQ SCH (21:17)
[2021-05-22] MEDS ORDERED: [UNRECOGNIZED DRUG - OTHER] IV SCH (22:00)
[2021-05-22] MEDS ORDERED: AMINO ACID IV SCH (22:00)
[2021-05-22] MEDS ORDERED: DEXTROSE 70% IV SCH (22:00)
[2021-05-22] MEDS ORDERED: TOTAL PARENTERAL NUTRITION IV SCH (22:00)
[2021-05-23] VITALS (24 sets, daily range): BP systolic 102–218; BP diastolic 55–106
[2021-05-23] MEDS: INSULIN LISPRO 300 UNITS/3 ML VIAL. SQ SCH ×4 (00:42→16:50)
[2021-05-23] MEDS: DEXMEDETOMIDINE 400 MCG in IV NORMAL SALINE 100ML 96 ML IV PRN ×7 (01:53→21:30)
[2021-05-23] MEDS: METOPROLOL IV PUSH 5 MG/5 ML VIAL. IVP SCH ×4 (05:28→18:00)
[2021-05-23] MEDS: HEPARIN for SUB-Q USE 5,000 UNIT/ML VIAL. SQ SCH ×3 (05:28→20:01)
--- NOTE | 2021-05-23 06:22 | RAD ---
AP chest x-ray HISTORY: Respiratory failure. COMPARISON: Chest x-ray May 18, 2012 FINDINGS: Diaphragms and portions of the lung bases are partially outside the [id number]. Tracheos jaime. Right jugular single luminal central venous catheter tip proximal right atrium. Separate right jugular dual-lumen catheter tip right atrium. Nasogastric tube extends the abdomen outside field-of-v iew. Cardiomegaly grossly stable. No pneumothorax. There are [id number] layering pleural effusi ons and heterogeneous opacities at the mid inferior lung zones partially obscuring the diaphragms the extent of basilar opacity as well as the pleural effusions have mildly increased. IMPRESSION: Mild worsening of the basilar lower lobe opacities and mild to moderate pleural effusions . Lines and tubes as described above. Cardiomegaly stable. Electronically signed by: Pa Griffin MD (05/23/2021 6:19 AM) [facility]
--- NOTE | 2021-05-23 06:28 | PDOC ---
PULMONARY PROGRESS NOTES DATE: 05/23/21 TIME: 06:20 Subjective currently on PS 10/5,40% Gastric tube reduced drainage overnight Afebrile Does not tolerate reducing sedation, has tachycardia/arrhythmia Vitals Vital Signs Date Time Temp Pulse Resp B/P (MAP) Pulse Ox O2 Delivery O2 Flow Rate FiO2 05/23/21 05:28 102 182/88 05/23/21 05:00 18 100 Ventilator 05/23/21 04:00 97.1 97.1 05/23/21 03:13 10.0 Comments Awake and follows some commands. No obvious respiratory distress HEENT: Other (Trachea midline) Lungs: Clear Cardiovascular: S1, S2 Abdomen: Soft Extremities: No Edema Labs Laboratory Tests Test 05/21/21 13:18 05/21/21 17:25 05/22/21 06:00 05/22/21 06:04 Glucose (Fingerstick) 143 mg/dL (70-99) 122 mg/dL (70-99) 134 mg/dL (70-99) White Blood Count 14.6 x10^3/uL (4.0-11.0) Red Blood Count 2.97 x10^6/uL (4.30-5.70) Hemoglobin 8.0 g/dL (13.0-17.5) Hematocrit 24.9 % (39.0-53.0) Mean Corpuscular Volume 84 fL (79-100) Mean Corpuscular Hemoglobin 27 pg (25-35) Mean Corpuscular Hemoglobin Concent 32 g/dL (31-37) Red Cell Distribution Width 16.6 % (11.5-14.5) Platelet Count 158 x10^3/uL (140-400) Neutrophils (%) (Auto) 66 % (31-73) Lymphocytes (%) (Auto) 17 % (24-48) Monocytes (%) (Auto) 10 % (0-9) Eosinophils (%) (Auto) 6 % (0-3) Basophils (%) (Auto) 1 % (0-3) Neutrophils # (Auto) 9.7 x10^3/uL (1.8-7.7) Lymphocytes # (Auto) 2.5 x10^3/uL (1.0-4.8) Monocytes # (Auto) 1.4 x10^3/uL (0.0-1.1) Eosinophils # (Auto) 0.9 x10^3/uL (0.0-0.7) Basophils # (Auto) 0.1 x10^3/uL (0.0-0.2) Sodium Level 140 mmol/L (136-145) Potassium Level 3.7 mmol/L (3.5-5.1) Chloride Level 105 mmol/L (98-107) Carbon Dioxide Level 19 mmol/L (21-32) Anion Gap 16 (6-14) Blood Urea Nitrogen 38 mg/dL (8-26) Creatinine 2.7 mg/dL (0.7-1.3) Estimated GFR (Cockcroft-Gault) 28.1 BUN/Creatinine Ratio 14 (6-20) Glucose Level 133 mg/dL (70-99) Calcium Level 8.5 mg/dL (8.5-10.1) Phosphorus Level 5.3 mg/dL (2.6-4.7) Magnesium Level 1.6 mg/dL (1.8-2.4) Total Bilirubin 0.7 mg/dL (0.2-1.0) Aspartate Amino Transf (AST/SGOT) 31 U/L (15-37) Alanine Aminotransferase (ALT/SGPT) 22 U/L (16-63) Alkaline Phosphatase 81 U/L (46-116) Total Protein 5.7 g/dL (6.4-8.2) Albumin 1.4 g/dL (3.4-5.0) Albumin/Globulin Ratio 0.3 (1.0-1.7) Test 05/22/21 11:57 05/22/21 17:40 05/23/21 00:40 05/23/21 06:05 Glucose (Fingerstick) 121 mg/dL (70-99) 136 mg/dL (70-99) 174 mg/dL (70-99) 172 mg/dL (70-99) Laboratory Tests Test 05/22/21 11:57 05/22/21 17:40 05/23/21 00:40 05/23/21 06:05 Glucose (Fingerstick) 121 mg/dL (70-99) 136 mg/dL (70-99) 174 mg/dL (70-99) 172 mg/dL (70-99) Medications Active Scripts Medications Dose Route/Sig Max Daily Dose Days Date Category Glyburide 2.5 Mg Tablet 1 Tab PO DAILY 14 04/19/21 Rx Polyethylene Glycol 3350 17 Gm Powd.pack 17 Gm PO DAILY 04/19/21 Rx Dok (Docusate Sodium) 100 Mg Capsule 100 Mg PO PRN DAILY PRN 30 04/19/21 Rx Bisacodyl 5 Mg Tablet. 5 Mg PO PRN DAILY PRN 14 04/19/21 Rx Acetaminophen 325 Mg Tablet 650 Mg PO PRN Q4HRS PRN 04/19/21 Rx Aspirin Ec (Aspirin) 81 Mg Tablet. 81 Mg PO DAILYWBKFT 30 04/19/21 Rx Hydralazine Hcl 25 Mg Tablet 25 Mg PO QID 30 04/19/21 Rx Fenofibrate 54 Mg Tablet 1 Tab PO DAILY 04/17/21 Reported Potassium Chloride (Potassium Chloride) 20 Meq Tablet.er 20 Meq PO DAILY 04/17/21 Reported Coreg (Carvedilol) 12.5 Mg Tablet 37.5 Mg PO BIDWMEALS 04/17/21 Reported Rosuvastatin Calcium 40 Mg Tablet 40 Mg PO QHS 04/17/21 Reported Gabapentin (Gabapentin) 100 Mg Capsule 200 Mg PO BID 04/17/21 Reported Montelukast Sodium Tablet (Montelukast Sodium) 10 Mg Tablet 10 Mg PO HS 04/17/21 Reported Protonix (Pantoprazole Sodium) 20 Mg Tablet. 2 Tab PO DAILY 04/17/21 Reported Amlodipine Besylate 5 Mg Tablet 5 Mg PO DAILY 04/17/21 Reported Furosemide 40 Mg Tablet 1 Tab PO DAILY 04/17/21 Reported Proair Hfa Inhaler (Albuterol Sulfate) 8.5 Gm Hfa.aer.ad 2 Puff IH PRN Q4-6HRS PRN 04/16/21 Reported Advair 100-50 Diskus (Fluticasone/Salmeterol) 1 Each Disk.w.dev 1 Puff IH BID 04/16/21 Reported Comments Chest x-ray reviewed by me dated 05/23/2021. Minimal left basal effusion/atelectasis. Impression . IMPRESSION: 1. Acute hypoxic respiratory failure, multifactorial/COVID-19 viral pneumonia/ARDS, ongoing, intubated 04/25/2021, now status post tracheostomy 05/15/[address] chest with bilateral diffuse interstitial infiltrates without any significant pleural effusion 3. Leukocytosis, sepsis--improved 4. Non-ST segment elevation [place] 5. History of tobacco use, suspect COPD, unknown FEV1 6. Chronic kidney disease.== HD on hold 7. Metabolic acidosis multifactorial 8. Abnormal chest x-ray 9. Hypoglycemia, continue to monitor--- resolved 10. Hypotension, suspect volume deficit,/possible sepsis--- resolved 11. Fever--improved 12. Anemia--improved 13. Atrial fibrillation with rapid ventricular response, currently rate controlled Plan . Updated 05/23/21 Continue current vent support, currently on PS 10/5 40%, tolerating well, PS during the day as tolerated S/P trach 05/15/2021 unable to wean precedex 2/2 increased BP and HR Follow ABG/CXR--changes as needed Follow ID recs for ABX Follow GI recs--now with ileus, PEG tube on hold, ongoing gastric output og to LIS Follow nephrology recs-- HD on hold, last HD was 05/12/21 Follow Cardiology recs-- Continue TPN for nutritional support DVT/GI PPX: sq heparin D/W RN and RT Pt. is DNR cct 30 min JONES FISHMAN MD May 23, 2021 06:28
--- NOTE | 2021-05-23 07:47 | PDOC ---
[employer] PROGRESS NOTE Date of Service DOS: DATE: 05/23/21 TIME: 07:41 Chief Complaint Chief Complaint Respiratory failure requiring intubation COVID-19 Acute ID A. fib SIRS Hypertension with hypertensive urgency Hyperlipidemia CKD Diabetes History of bilateral subclavian stenosis History of marijuana use Severe protein calorie malnutrition Trach placed on May 15 GI consulted for PEG evaluation --> patient with a lot of vomiting yesterday thus current NG tube to low intermittent suction History of Present Illness History of Present Illness 05/23/2021: Afebrile. On vent with FiO2 40%, PEEP 5. NG tube for 635 mL out overnight. Continue NG tube to suction. HD per nephrology. Continue IV antibiotics, per ID. Critical care time 30 minutes spent reviewing charts, reviewing labs, reviewing imaging, discussion with RN. 05/22/2021: Afebrile. On vent with FiO2 40%, PEEP 5. Continues to have excess lashay NG output. Continue NG tube to suction for now; PEG on hold for now. Continue hemodialysis, per nephrology. Continue IV antibiotics, per ID. Social work helping with discharge planning to LTACH likely in the near future after PEG is placed. Critical care time 30 minutes spent reviewing charts, reviewing labs, reviewing imaging, discussion with RN. 05/21/2021: Afebrile, no acute events overnight. Remains on vent, FiO2 40%, PEEP 5. S/P tracheostomy on 05/15/2021. KUB on 05/19/2021 consistent with ileus. Per GI, continue NG tube to suction and parenteral nutrition for now. Continue IV antibiotics, per ID. Continue hemodialysis, per nephrology. Continue supportive care. Critical care time 30 minutes spent reviewing charts, reviewing imaging, reviewing labs, and discussed with RN. 05/20/21 Patient seen and examined at bedside. Again had multiple bouts of vomiting yesterday. GI continuing to follow for PEG evaluation although on hold right now due to persistent vomiting. Leukocytosis does persist but patient afebrile. Plan of care discussed with bedside RN 05/19/21 Patient seen and examined at bedside. Apparently had a fair bit of vomiting overnight. GI following for PEG evaluation. Otherwise patient remained stable. Plan of care discussed with bedside nurse. 05/18/21 Patient seen and examined at bedside. Attempting to increase tube feeds, GI consulted for PEG evaluation. Otherwise no major clinical changes. Continue to wean sedation. Plan of care discussed with bedside nurse. 05/17/21 Patient seen and examined at bedside. Attempting to wean sedation. Patient with some diarrhea. Per infectious disease will give erythromycin eye ointment for eye lesions. Nephro and pulm also following. Continue sedation weaning, plan of care discussed with bedside nurse. 05/16/21 Patient seen and examined at bedside. Underwent tracheostomy yesterday today tolerated well. When seen this morning patient is still notably sedated respiratory status is stable. Continue antibiotics and supportive measures. P lui of care discussed with bedside nurse. Attempt to wean sedation. 05/15/21 Patient seen and examined at bedside Remains intubated and sedated planning for tracheostomy today Continue current respiratory support; continue antibiotics, continue sedation Follow recommendations of pulmonary, renal, and infectious disease Plan of care discussed with bedside nurse Will follow up with patient after surgery today 05/14/21 Patient seen and examined at bedside Remains intubated and sedated planning for tracheostomy tomorrow Continue current respiratory support; continue antibiotics, continue sedation Follow recommendations of pulmonary, renal, and infectious disease Plan of care discussed with bedside nurse 05/13/2021 did not tolerate sedation vacation 05/11/2021, profoundly hypertensive ABG/CXR--changes as needed Continue iv cefepime , add zyvox, sputum culture VENT [id number]%, 5 of PEEP Mild pulmonary edema with new small right pleural effusion and basilar opacities now on cardene gtt prn Patient seen and examined in the [facility]- ICU remains mechanically ventilated ILDA on CKD - ATN 2/2 sepsis/ Hypotension,UOP good,on IV Lasix ; requiring dialysis, Sedated with propofol Dex and fentanyl Chart reviewed Discussed with RN He remains critically ill intubated/sedated cont cardene gtt not able to tolerate PS trial 05/06/21 Change central line and send cath tip for cultures. 05-09 C. difficile PCR ADELSO AVILA MD ORDERED: BCULT Procedure Result --- --------- BLOOD CULTURE Final NO GROWTH AFTER 5 DAYS JONES FISHMAN MD,BRIAN Roberson MD BLOOD CULTURE Preliminary NO GROWTH AFTER 4 DAYS 37 min cc time 05/12/2021 Continue iv cefepime , add zyvox, sputum culture VENT [id number]%, 5 of PEEP Mild pulmonary edema with new small right pleural effusion and basilar opacities now on cardene gtt prn Patient seen and examined in the COVID-19 ICU remains mechanically ventilated ILDA on CKD - ATN 2/2 sepsis/ Hypotension,UOP good,on IV Lasix ; requiring dialysis, Sedated with propofol Dex and fentanyl Chart reviewed Discussed with RN He remains critically ill intubated/sedated cont cardene gtt not able to tolerate PS trial 05/06/21 Change central line and send cath tip for cultures. 05-09 C. difficile PCR JONES FISHMAN MD, CHRISTOPHER S MD SISILLO, SABATO MD ORDERED: BCULT Procedure Result BLOOD CULTURE Preliminary NO GROWTH AFTER 2 DAYS BLOOD CULTURE Preliminary NO GROWTH AFTER 4 DAYS 33 min cc time 05/11/2021 Continue iv cefepime , add zyvox, sputum culture VENT %, 5 of PEEP Mild pulmonary edema with new small right pleural effusion and basilar opacities now on cardene gtt prn Patient seen and examined in the [place] [address] ICU remains mechanically ventilated ILDA on CKD - ATN 2/2 sepsis/ Hypotension,UOP good,on IV Lasix ; requiring dialysis, Sedated with propofol Dex and fentanyl Chart reviewed Discussed with RN He remains critically ill intubated/sedated cont cardene gtt not able to tolerate PS trial 05/06/21 Change central line and send cath tip for cultures. 05-09 C. difficile PCR JONES FISHMAN MD,ADELSO DASILVA MD, MD ORDERED: BCULT Procedure Result BLOOD CULTURE Preliminary NO GROWTH AFTER 2 DAYS BLOOD CULTURE Preliminary NO GROWTH AFTER 4 DAYS 36 min cc time 05/10/2021 VENT %, 5 of PEEP Mild pulmonary edema with new small right pleural effusion and basilar opacities now on cardene gtt prn Patient seen and examined in the [place] [address] ICU remains mechanically ventilated ILDA on CKD - ATN 2/2 sepsis/ Hypotension,UOP good,on IV Lasix ; requiring dialysis, Sedated with propofol Dex and fentanyl Chart reviewed Discussed with RN He remains critically ill intubated/sedated cont cardene gtt not able to tolerate PS trial 05/06/21 Change central line and send cath tip for cultures. 05-09 C. difficile PCR JONES FISHMAN MD,ADELSO DASILVA MD, MD ORDERED: BCULT Procedure Result BLOOD CULTURE Preliminary NO GROWTH AFTER 2 DAYS --- --------- BLOOD CULTURE Preliminary NO GROWTH AFTER 4 DAYS 33 min cc time 05/09/2021 VENT [id number]%, 5 of PEEP Mild pulmonary edema with new small right pleural effusion and basilar opacities now on cardene gtt prn Patient seen and examined in the COVID-19 ICU remains mechanically ventilated ILDA on CKD - ATN 2/2 sepsis/ Hypotension,UOP good,on IV Lasix ; requiring dialysis, Sedated with propofol Dex and fentanyl Chart reviewed Discussed with RN He remains critically ill intubated/sedated cont cardene gtt not able to tolerate PS trial 05/06/21 Change central line and send cath tip for cultures. 05-09 C. difficile PCR JONES FISHMAN MD,ADELSO DASILVA MD, MD ORDERED: BCULT Procedure Result BLOOD CULTURE Preliminary NO GROWTH AFTER 2 DAYS BLOOD CULTURE Preliminary NO GROWTH AFTER 4 DAYS 37 min cc time 05/08/2021 Currently on 40%, 5 of PEEP now on cardene gtt Patient seen and examined in the [place] [address] ICU remains mechanically ventilated ILDA on CKD - ATN 2/2 sepsis/ Hypotension,UOP good,on IV Lasix ; requiring dialysis, AC/20/500/40 percent with 5 of PEEP Sedated with propofol Dex and fentanyl Chart reviewed Discussed with RN He remains critically ill intubated/sedated cont cardene gtt not able to tolerate PS trial 05/06/21 JONES FISHMAN MD,ADELSO DASILVA MD, MD ORDERED: BCULT Procedure Result ---- -------- BLOOD CULTURE Preliminary NO GROWTH AFTER 2 DAYS BLOOD CULTURE Preliminary NO GROWTH AFTER 4 DAYS 33 min cc time 05/07/2021 Patient seen and examined in the [place] [address] ICU He remains mechanically ventilated ILDA on CKD - ATN 2/2 sepsis/ Hypotension,UOP good,on IV Lasix ; requiring dialysis, AC/20/500/40 percent with 5 of PEEP Sedated with propofol Dex and fentanyl Chart reviewed Discussed with RN He remains critically ill intubated/sedated cont cardene gtt not able to tolerate PS trial 05/06/21 JONES FISHMAN MD,ADELSO DASILVA MD, MD ORDERED: BCULT -- Procedure Result BLOOD CULTURE Preliminary NO GROWTH AFTER 2 DAYS 36 min cc time 05/06/2021 Patient seen and examined in the [place] [address] ICU He remains mechanically ventilated AC/20/500/40 percent with 5 of PEEP Sedated with propofol Dex and fentanyl Chart reviewed Discussed with RN He remains critically ill 05/05/2020 Patient seen and examined in the [place] [address] ICU He remains on the vent AC/20/500/40 percent with 5 of PEEP Discussed with RN Chart reviewed Has SCDs in place Nieves to bedside drainage He remains critically ill 05/04/2021 Patient seen and examined in the [place] [address] ICU Still intubated Sedated with propofol and fentanyl AC/20/500/70 percent with 5 of PEEP On dialysis currently Has SCDs in Nieves to bedside drainage Discussed with RN Chart reviewed 05/03/2021 Patient seen and examined in the [place] [address] ICU He is still intubated AC/20/500/70 percent with 5 of PEEP Has SCDs in place Nieves to bedside drainage Sedated with fentanyl Versed and propofol Discussed are Chart reviewed Remains critically ill 05/02/2021 Patient seen and examined in the [place] [address] ICU He is sedated with propofol fentanyl and Versed Ventilator settings as follow AC/20/500/40 percent with 5 of PEEP Has Nieves to bedside drainage Chart reviewed Discussed with RN He remains critically ill 05/01/2021 Patient seen and examined in the [place] [address] ICU He is still intubated AC/20/500/40 percent with 5 of PEEP In A. fib Sedated with propofol fentanyl and Versed Has a heparin drip Missy with RN Chart reviewed He remains critically 04/30/2020 Patient seen and examined in the [place] [address] ICU He remains on the vent AC/20/500/40 5% with 5 PEEP Currently on dialysis Has OG feeds running Has a Nieves to bedside drainage Sedated with propofol and fentanyl Reviewed chart Discussed with RN He remains critically ill Mr Cunha is a 75 yo male w/ PMHx CAD, HTN, Hyperlipidemia, subclavian steel syndrome, subclavian stenosis s/p left subclavian sent placement complicated by retroperitoneal hematoma s/p evacuation in 08/2015), asthma, BART, CKD, DM2 who presented from home with home health care noted that he was short of breath and valverde with O2 saturations less than 89% as low as 84% not improved with nasal cannulated oxygen placed on CPAP and brought to ED for further care. He was just discharged from the hospital a week ago on April 19, 2021 for abdominal pain and was going for further cardiac testing with outpatient stress testing scheduled on May 28, 2021. Had echocardiogram April 17, 2021 with normal-appearing EF with moderate concen tric LVH no significant valvular abnormalities. WBC 20, Hb 10.7, platelets 268, NA 140, K3.8, BUN 21, CR 2.9, glucose 162, album in 3, troponin I 1.372, NT proBNP 33,318. EKG appears sinus tachycardia rate of 105 bpm with multiple PACs small ST depressions in lead II and V5. TWI in V6. Chest radiograph with diffuse interstitial and alveolar opacities and ET tube 5.8 cm above the leilani. Due to worsening respiratory status ED physician elected to intubate patient. Seen postintubation. Blood pressure little low after propofol bolus, but improved. Significant white frothy sputum per ET tube. Admitted to ICU for further care 04/29/2021: Afebrile, remains on vent at FiO2 45%, PEEP 5. WBC 20.4. Hemodialysis per nephrology. We will continue treatment with empiric antibiotics, remdesivir, and steroids. Continue heparin infusion and supportive care. Critical care time 30 minutes reviewing chart, review labs, review imaging, discussion with RN. 04/28/2021: Afebrile. FiO2 50%, PEEP 5. Nontunneled HD catheter placed yesterday due to worsening kidney function; eGFR 16 (CKD4). Chest x-ray showed unchanged interstitial opacities. Continue empiric antibiotics, steroids, and remdesivir. Continue heparin infusion, and continue to follow cardiology recommendations on new diagnosis of A. fib. Critical care time 30 minutes reviewing chart, review labs, review imaging, discussion with RN. 04/27/2021: Afebrile. On vent with FiO2 50%, PEEP 5. Troponin 2.8 yesterday; probable type II, demand ischemia. New onset A. fib. Continue heparin drip and as needed digoxin, per cardiology. Continue treatment with remdesivir, steroids, and prophylactic antibiotics. CBG 323 this morning; will add basal insulin. Critical care 30 minutes spent reviewing labs, reviewing imaging, revi gee charts, and discussion with RN. 04/26/2021: COVID-19 positive. Febrile overnight that was managed with cooling blankets. On vent with FiO2 50%, PEEP 5. Per cardiology, elevated troponins likely secondary to demand ischemia; continue heparin drip per cardiology. Maintain fluid balance and avoid nephrotoxins. Continue treatment with remdesivir, steroids, and prophylactic antibiotics. 30 minutes critical care time spent reviewing charts, reviewing labs, reviewing imaging, and discussion with RN. 04/25/2021: On vent FiO2 50, PEEP 5. Febrile, T-max 103.3. Patient was initiated on cooling blankets. Procalcitonin 0.13. Continue coverage for hospital-acquired pneumonia with cefepime. MRSA PCR pending. Critical care time 30 minutes spent reviewing charts, reviewing labs, review of imaging, discussion with RN. Vitals/I&O Vitals/I&O: Vital Signs Date Time Temp Pulse Resp B/P (MAP) Pulse Ox O2 Delivery O2 Flow Rate FiO2 05/23/21 06:00 82 20 111/59 (76) 100 Ventilator 05/23/21 04:00 97.1 97.1 05/23/21 03:43 10.0 I & O 05/22/21 05/22/21 05/23/21 15:00 23:00 07:00 Intake Total 1109.6 ml Output Total 325 ml 160 ml 150 ml Balance -325 ml 949.6 ml -150 ml Physical Exam Physical Exam: GENERAL: Well-developed and well-nourished male, intubated, HEENT: Normocephalic, atraumatic, redness and erythema of both eyes improved, NG tube present NECK: right dialysis catheter present clean,central line changed ( 05/11) HEART: S1, S2. LUNGS: Decreased breath sounds. ABDOMEN: distended,hypoactive BS GENITOURINARY: Nieves in place. EXTREMITIES: Edema present. DERMATOLOGIC: Warm, dry, no generalized rash. NEUROLOGIC: Intubated. PICC line clean General: No acute distress, Other (Answering some questions when awake) Heart: Regular rate, Normal S1, Normal S2 Lungs: Clear Abdomen: Normal bowel sounds, Other (ND) Extremities: No clubbing, No cyanosis, Other (Lower extremity edema) Skin: No rashes, No breakdown, No significant lesion Labs Labs: Laboratory Tests Test 05/22/21 11:57 05/22/21 17:40 05/23/21 00:40 05/23/21 06:05 Glucose (Fingerstick) 121 mg/dL (70-99) 136 mg/dL (70-99) 174 mg/dL (70-99) 172 mg/dL (70-99) Assessment and Plan Assessmemt and Plan Problems Medical Problems: (1) Elevated troponin Status: Acute (2) Person under investigation for COVID-19 Status: Acute (3) Pulmonary edema Status: Acute Comment Review of Relevant I have reviewed the following items juanita (where applicable) has been applied. Medications: Current Medications Medications (Trade) Dose Ordered Sig/Jodie Route PRN Reason Start Time Stop Time Status Last Admin Dose Admin Info (Tpn Per Pharmacy) 1 each PRN DAILY PRN MC SEE COMMENTS 05/22/21 10:00 05/22/21 15:10 Magnesium Sulfate 50 ml @ 25 mls/hr 1X ONCE IV 05/22/21 10:30 05/22/21 12:29 DC 05/22/21 10:24 Sodium Chloride 90 meq/Potassium Chloride 25 meq/ Magnesium Sulfate 10 meq/Calcium Gluconate 5 meq/ Multivitamins 5 ml/Zinc/Copper/ Manganese/ Selenium 1 ml/ Total Parenteral Nutrition/Amino Acids/Dextrose/ Fat Emulsion Intravenous 1,080 ml @ 45 mls/hr TPN CONT IV 05/22/21 22:00 05/23/21 21:59 05/22/21 21:22 Amiodarone HCl 450 mg/Dextrose 259 ml @ 0 mls/hr 1X ONCE IV 05/22/21 16:30 05/22/21 16:34 DC 05/22/21 16:59 Justifications for Admission General Conditions Altered mental status?: Yes Justification of admission: Patient has tachycardia (> 100 beats per minute) or hypotension (SBP < 90 mm Hg) leading to inadequate systemic perfusion as indicated by severe/persistent altered mental status. Other Justification ILDA SARAH BETH CARRASCO MD May 23, 2021 07:47
--- NOTE | 2021-05-23 07:52 | PDOC ---
Infectious Disease Note Subjective: Subjective Pt remains vent dependent afebrile NGT output has decreased d/W nursing staff Vital Signs: Vital Signs Vital Signs Date Time Temp Pulse Resp B/P (MAP) Pulse Ox O2 Delivery O2 Flow Rate FiO2 05/23/21 07:37 100 Ventilator 05/23/21 06:00 82 20 111/59 (76) 05/23/21 04:00 97.1 97.1 05/23/21 03:43 10.0 Physical Exam: PHYSICAL EXAM GENERAL: Well-developed and well-nourished male, sedated HEENT: Normocephalic, atraumatic, redness and erythema of both eyes improved, NG tube present NECK: right dialysis catheter present clean,central line changed ( 05/11) Trach + HEART: S1, S2. LUNGS: Decreased breath sounds. ABDOMEN: distended,hypoactive BS GENITOURINARY: Nieves in place. EXTREMITIES: Edema present. DERMATOLOGIC: Warm, dry, no generalized rash. NEUROLOGIC: Opens eyes PICC line clean Medications: Inpatient Meds: Medications reviewed. Labs: Lab Laboratory Tests Test 05/22/21 11:57 05/22/21 17:40 05/23/21 00:40 05/23/21 06:05 Glucose (Fingerstick) 121 mg/dL (70-99) 136 mg/dL (70-99) 174 mg/dL (70-99) 172 mg/dL (70-99) Objective: Assessment: 1. Febrile illness improved 2. Leukocytosis, was on steroids,ileus could contribute 3. COVID-19 pneumonia. 4. Acute hypoxic respiratory failure status post intubation.Now S/P Trach 05/15 5. Congestive heart failure, acute on chronic. 6. Acute kidney injury on chronic kidney disease on hemodialysis. 7. Diabetes mellitus 2. 8. Atrial fibrillation. 9. Anemia. 10. Protein-calorie malnutrition. 11. Hypertention 12.Hyponatremia 13. Ileus, Bowel obstruction Peg TF on hold, OG to LIS 14.on PPN 15.Mild to Moderate Pleural effusion 16.Lt eye conjunctivitis improved Plan: Plan of Care 1. Continue Meropenem renal dosing Cultures negative so far. Has been on broad spectrum antibiotics since admission has been on zyvox, cefepime, daptomycin since admission 2. Follow-up labs and cultures. 3. Central line changed on 8/6,C. difficile PCR negative 4. Continue supportive care. 5 Critically ill. 6. Local eye care DC erythromycin ointment after 7 days of treatment 7. maintain aspiration precautions WBC remains elevated though trend has improved, could be reactive from underlying ileus vs other Discussed with nursing staff ALAYNA RIVERO MD May 23, 2021 07:52
[2021-05-23] MEDS: ASPIRIN CHEWABLE 81 MG TABLET. PO SCH (08:00)
[2021-05-23 08:18] LABS: CALCIUM 8.6 mg/dL (8.5-10.1); CREATININE 2.6 mg/dL (0.7-1.3); GFR 29.3; MAGNESIUM 2.2 mg/dL (1.8-2.4); POTASSIUM 3.2 mmol/L (3.5-5.1)
[2021-05-23 08:24] LABS: PHOSPHORUS 4.9 mg/dL (2.6-4.7)
[2021-05-23] MEDS: hydrALAZINE 20 MG/ML VIAL. IVP PRN (09:28)
[2021-05-23] MEDS: PANTOPRAZOLE IV PUSH 40 MG VIAL. IVP SCH (10:04)
[2021-05-23] MEDS: MEROPENEM 500 MG in IV NORMAL SALINE 50ML 50 ML IV SCH (10:05)
[2021-05-23] MEDS: LABETALOL 20 MG/4 ML DISP.SYRIN. IVP PRN (10:06)
[2021-05-23] MEDS: NYSTATIN TOPICAL POWDER 15GM BOTTLE. TP SCH ×2 (10:07→20:01)
[2021-05-23] MEDS: ERYTHROMYCIN 0.5% OPHTH OINTMENT 1GM TUBE. OU SCH ×2 (10:08→20:00)
--- NOTE | 2021-05-23 10:10 | PDOC ---
Date of Service: DATE: 05/23/21 TIME: 10:07 Objective: Vital Signs: Vital Signs Date Time Temp Pulse Resp B/P (MAP) Pulse Ox O2 Delivery O2 Flow Rate FiO2 05/23/21 10:06 75 164/72 05/23/21 09:20 100 Ventilator 05/23/21 07:00 20 05/23/21 04:00 97.1 97.1 05/23/21 03:43 10.0 Labs: Laboratory Tests Test 05/22/21 11:57 05/22/21 17:40 05/23/21 00:40 05/23/21 06:00 Glucose (Fingerstick) 121 mg/dL 136 mg/dL 174 mg/dL Sodium Level 141 mmol/L Potassium Level 3.2 mmol/L Chloride Level 108 mmol/L Carbon Dioxide Level 18 mmol/L Anion Gap 15 Blood Urea Nitrogen 37 mg/dL Creatinine 2.6 mg/dL Estimated GFR (Cockcroft-Gault) 29.3 Glucose Level 176 mg/dL Calcium Level 8.6 mg/dL Phosphorus Level 4.9 mg/dL Magnesium Level 2.2 mg/dL Triglycerides Level 167 mg/dL Test 05/23/21 06:05 Glucose (Fingerstick) 172 mg/dL Imaging: CXR 05/23 IMPRESSION: Mild worsening of the basilar lower lobe opacities and mild to moderate pleural effusions. Lines and tubes as described above. Cardiomegaly stable. PE: GEN: NAD LUNGS: trach/vent HEART: reg rate ABD: large, some distention, NG canister bilious about ~700cc NEURO/PSYCH: eyes open, unclear orients A/P: COVID-19/resp failure s/p trach Ileus -- Continue same - monitor NG output. Justicifation of Admission Dx: Justifications for Admission: Justification of Admission Dx: Yes Aspiration Pneumonia: Hemodynamic Instability TAIWO THEODORE May 23, 2021 10:10
--- NOTE | 2021-05-23 10:36 | PDOC ---
Renal-Progress Notes Subjective Notes Notes REMAINS ON THE TRACH History of Present Illness Hx of present illness OVERALL STABLE Vitals Vitals Vital Signs Date Time Temp Pulse Resp B/P (MAP) Pulse Ox O2 Delivery O2 Flow Rate FiO2 05/23/21 10:06 75 164/72 05/23/21 09:20 100 Ventilator 05/23/21 07:00 20 05/23/21 04:00 97.1 97.1 05/23/21 03:43 10.0 Weight Weight [ ] I.O. Intake and Output Intake and Output 05/23/21 07:00 Intake Total 1109.6 ml Output Total 635 ml Balance 474.6 ml IV Total 1109.6 ml Output Urine Total 635 ml Labs Labs Laboratory Tests Test 05/22/21 11:57 05/22/21 17:40 05/23/21 00:40 05/23/21 06:00 Glucose (Fingerstick) 121 mg/dL (70-99) 136 mg/dL (70-99) 174 mg/dL (70-99) Sodium Level 141 mmol/L (136-145) Potassium Level 3.2 mmol/L (3.5-5.1) Chloride Level 108 mmol/L (98-107) Carbon Dioxide Level 18 mmol/L (21-32) Anion Gap 15 (6-14) Blood Urea Nitrogen 37 mg/dL (8-26) Creatinine 2.6 mg/dL (0.7-1.3) Estimated GFR (Cockcroft-Gault) 29.3 Glucose Level 176 mg/dL (70-99) Calcium Level 8.6 mg/dL (8.5-10.1) Phosphorus Level 4.9 mg/dL (2.6-4.7) Magnesium Level 2.2 mg/dL (1.8-2.4) Triglycerides Level 167 mg/dL (0-150) Test 05/23/21 06:05 Glucose (Fingerstick) 172 mg/dL (70-99) Micro Micro Microbiology 05/11/21 Gram Stain Evaluation - Final, Complete 05/11/21 Respiratory Culture - Final, Complete 05/04/21 Gram Stain - Final, Complete 05/04/21 Aerobic Culture - Final, Complete 05/04/21 Blood Culture - Final, Complete NO GROWTH AFTER 5 DAYS Review of Systems Constitutional: yes: unresponsive, other Physical Exam General Appearance: no apparent distress, other (ON THE VENT) Skin: warm, edema Respiratory: decreased breath sounds Heart: S1S2 Abdomen: bowel sounds present Genitourinary: bladder flat, mooney catheter Extremities: pulses present, edema Neurology: other (sedated) Musculoskeletal: Other Assessment Assessment IMP HYPONATREMIA-RESOLVED HYPOKALEMIA LOW MAG-CORRECTED [id number] -CR STABLE AT 2.6 CKD - SUSPECT STAGE 3 ACUTE HYPOXIC RESP FAILURE COVID 19 PNEUMONIA MET ACIDOSIS-BETTER LEUCOCYTOSIS ANEMIA S/P TRACH ANASARCA PLAN REPLACE ELECTROLYTES REMAINS CRITICALLY ILL VENT SUPPORT-FIO2 OF 40% NUTRITION PRESSORS NEEDED HD LAST ON SAT - CONT TO HOLD HD MAINTAIN HD LINE OFF HD FOR NOW STOP IVF'S ATTEMPT TO [facility]URESE LTAC TRANSFER PENDING WILL FOLLOW JEANINE NEWTON MD May 23, 2021 10:36
[2021-05-23] MEDS ORDERED: FUROSEMIDE 100 MG/10 ML VIAL. IVP ONE (10:45)
[2021-05-23] MEDS: POTASSIUM CHLORIDE 20MEQ 100 ML IV SCH ×2 (11:25→13:17)
[2021-05-23] MEDS: TPN PER PHARMACY MC PRN (12:57)
--- NOTE | 2021-05-23 12:58 | NUR ---
Pharmacy TPN Dosing Note S: NILAM LAN is a 75 year old M Currently receiving Central Continuous TPN started 05/22/21 B:Pertinent PMH: ILEUS Height: 6 feet, 2 inches Weight: 155.9 kg Current diet: NPO LABS: Sodium: 140 Potassium: 3.2 Chloride: 108 Calcium: 8.6 Corrected Calcium: 10.68 Magnesium: 2.2 CO2: 18 SCr: 2.6 Glucose: 176 Albumin: 1.4 AST: 31 ALT: 22 TPN FORMULA: TPN TYPE: Central Continuous AMINO ACIDS: 60 gm DEXTROSE: 195 gm LIPIDS: 1 gm SODIUM CHLORIDE: 90 mEq SODIUM ACETATE: mEq SODIUM PHOSPHATE: mmol POTASSIUM CHLORIDE: 50 mEq POTASSIUM ACETATE: mEq POTASSIUM PHOSPHATE: mmol MAGNESIUM: 10 mEq CALCIUM: 5 mEq INSULIN: units MULTIPLE VITAMIN: 5 ml TRACE ELEMENTS: 20 ml(s) TPN PLAN: K=3.2, 40meq kcl x1 given this am, will incrase to 50meq KCl in TPN Otherwise continue same TPN Labs in the am R: Continue TPN as written above. Will monitor electrolytes, glucose, and tolerance to TPN. [facility], 05/23/21 [id number]
--- NOTE | 2021-05-23 15:24 | NUR ---
SS following up with discharge planning. SS reviewed pt chart and discussed with pt RN. Pt is currently on the vent at 40%. COVID19 recovered. Trach in place. Pt on IV Meropenem. NG in place. TPN. Per RN, pt pending ileus resolution and peg placement. Pt on Fentanyl and Precedex. Pt accepted at [facility], ; fax [phone], pending insurance authorization. SS phoned and faxed clinical updates to [facility]. SS will continue to follow for discharge planning.
--- NOTE | 2021-05-23 15:40 | NUR ---
Wound Care Wound Type/Assessment: Patient was seen for wound care follow up. Patient continues with a large, intact blood blister on plantar side of right foot. Tissue is stable with no openings. Periwound intact and clear. Wound #2 is a left corneal avulsion, appears to be resolving, sclera is pink. Treatment Recommendations/Plan: Continue to skin prep R foot periwound, foam dressing was applied for protection. Recommend change every 3-4 days. Education provided: Patient is on a ventilator. Offloading surface/device: wedge, ICU bed, float feet with pillows and wedge, recommend end bedrail removed, as it's difficult for pt's feet to avoid touching d/t height. Recommended Referrals/Tests: None Discharge Recommendations for dressings: Continue current treatment plan.
[2021-05-23] MEDS: ATORVASTATIN CALCIUM 40 MG TABLET. PO SCH (19:58)
[2021-05-23] MEDS: MONTELUKAST SODIUM 10 MG TABLET. PO SCH (19:58)
[2021-05-23] MEDS: INSULIN GLARGINE SYRINGE. SQ SCH (20:02)
[2021-05-23] MEDS ORDERED: DEXTROSE 70% IV SCH (22:00)
[2021-05-23] MEDS ORDERED: AMINO ACID IV SCH (22:00)
[2021-05-23] MEDS ORDERED: TOTAL PARENTERAL NUTRITION IV SCH (22:00)
[2021-05-23] MEDS ORDERED: [UNRECOGNIZED DRUG - OTHER] IV SCH (22:00)
[2021-05-24] VITALS (23 sets, daily range): BP systolic 96–199; BP diastolic 53–112
[2021-05-24] MEDS: DEXMEDETOMIDINE 400 MCG in IV NORMAL SALINE 100ML 96 ML IV PRN ×10 (00:29→21:38)
[2021-05-24] MEDS: INSULIN LISPRO 300 UNITS/3 ML VIAL. SQ SCH ×4 (00:33→18:07)
--- NOTE | 2021-05-24 06:31 | PDOC ---
[employer] PROGRESS NOTE Date of Service DOS: DATE: 05/24/21 TIME: 06:25 Chief Complaint Chief Complaint Respiratory failure requiring intubation COVID-19 Acute [place] A. fib SIRS Hypertension with hypertensive urgency Hyperlipidemia CKD Diabetes History of bilateral subclavian stenosis History of marijuana use Severe protein calorie malnutrition Trach placed on May 15 GI consulted for PEG evaluation --> patient with a lot of vomiting yesterday thus current NG tube to low intermittent suction History of Present Illness History of Present Illness 05/24/2021: No acute events overnight. Afebrile. NG tube output has decreased. Kidney function appears stable. Continue IV antibiotics, per ID. Patient has been accepted to [facility], pending insurance authorization. Critical care time 30 minutes spent reviewing charts, reviewing labs, reviewing imaging, discussion with RN. 05/23/2021: Afebrile. On vent with FiO2 40%, PEEP 5. NG tube for 635 mL out overnight. Continue NG tube to suction. HD per nephrology. Continue IV antibiotics, per ID. Critical care time 30 minutes spent reviewing charts, reviewing labs, reviewing imaging, discussion with RN. 05/22/2021: Afebrile. On vent with FiO2 40%, PEEP 5. Continues to have excessive NG output. Continue NG tube to suction for now; PEG on hold for now. Continue hemodialysis, per nephrology. Continue IV antibiotics, per ID. Social work helping with discharge planning to LTACH likely in the near future after PEG is placed. Critical care time 30 minutes spent reviewing charts, reviewing labs, reviewing imaging, discussion with RN. 05/21/2021: Afebrile, no acute events overnight. Remains on vent, FiO2 40%, PEEP 5. S/P tracheostomy on 05/15/2021. KUB on 05/19/2021 consistent with ileus. Per GI, continue NG tube to suction and parenteral nutrition for now. Continue IV antibiotics, per ID. Continue hemodialysis, per nephrology. Continue supportive care. Critical care time 30 minutes spent reviewing charts, reviewing imaging, reviewing labs, and discussed with RN. 05/20/21 Patient seen and examined at bedside. Again had multiple bouts of vomiting yesterday. GI continuing to follow for PEG evaluation although on hold right now due to persistent vomiting. Leukocytosis does persist but patient afebrile. Plan of care discussed with bedside RN 05/19/21 Patient seen and examined at bedside. Apparently had a fair bit of vomiting overnight. GI following for PEG evaluation. Otherwise patient remained stable. Plan of care discussed with bedside nurse. 05/18/21 Patient seen and examined at bedside. Attempting to increase tube feeds, GI consulted for PEG evaluation. Otherwise no major clinical changes. Continue to wean sedation. Plan of care discussed with bedside nurse. 05/17/21 Patient seen and examined at bedside. Attempting to wean sedation. Patient with some diarrhea. Per infectious disease will give erythromycin eye ointment for eye lesions. Nephro and pulm also following. Continue sedation weaning, plan of care discussed with bedside nurse. 05/16/21 Patient seen and examined at bedside. Underwent tracheostomy yesterday today tolerated well. When seen this morning patient is still notably sedated respiratory status is stable. Continue antibiotics and supportive measures. Plan of care discussed with bedside nurse. Attempt to wean sedation. 05/15/21 Patient seen and examined at bedside Remains intubated and sedated planning for tracheostomy today Continue current respiratory support; continue antibiotics, continue sedation Follow recommendations of pulmonary, renal, and infectious disease Plan of care discussed with bedside nurse Will follow up with patient after surgery today 05/14/21 Patient seen and examined at bedside Remains intubated and sedated planning for tracheostomy tomorrow Continue current respiratory support; continue antibiotics, continue sedation Follow recommendations of pulmonary, renal, and infectious disease Plan of care discussed with bedside nurse 05/13/2021 did not tolerate sedation vacation 05/11/2021, profoundly hypertensive ABG/CXR--changes as needed Continue iv cefepime , add zyvox, sputum culture VENT [id number]%, 5 of PEEP Mild pulmonary edema with new small right pleural effusion and basilar opacities now on cardene gtt prn Patient seen and examined in the COVID-19 ICU remains mechanically ventilated ILDA on CKD - ATN 2/2 sepsis/ Hypotension,UOP good,on IV Lasix ; requiring dialysis, Sedated with propofol Dex and fentanyl Chart reviewed Discussed with RN He remains critically ill intubated/sedated cont cardene gtt not able to tolerate PS trial 05/06/21 Change central line and send cath tip for cultures. 05-09 C. difficile PCR ADELSO AVILA MD ORDERED: BCULT Procedure Result BLOOD CULTURE Final NO GROWTH AFTER 5 DAYS JONES FISHMAN MD, CHRISTOPHER S MD BLOOD CULTURE Preliminary NO GROWTH AFTER 4 DAYS 37 min cc time 05/12/2021 Continue iv cefepime , add zyvox, sputum culture VENT %, 5 of PEEP Mild pulmonary edema with new small right pleural effusion and basilar opacities now on cardene gtt prn Patient seen and examined in the [id number] ICU remains mechanically ventilated ILDA on CKD - ATN 2/2 sepsis/ Hypotension,UOP good,on IV Lasix ; requiring d ialysis, Sedated with propofol Dex and fentanyl Chart reviewed Discussed with RN He remains critically ill intubated/sedated cont cardene gtt not able to tolerate PS trial 05/06/21 Change central line and send cath tip for cultures. 05-09 C. difficile PCR JONES FISHMAN MD, CHRISTOPHER S MD SISILLO, SABATO MD ORDERED: BCULT Procedure Result BLOOD CULTURE Preliminary NO GROWTH AFTER 2 DAYS BLOOD CULTURE Preliminary NO GROWTH AFTER 4 DAYS 33 min cc time 05/11/2021 Continue iv cefepime , add zyvox, sputum culture VENT [id number]%, 5 of PEEP Mild pulmonary edema with new small right pleural effusion and basilar opacities now on cardene gtt prn Patient seen and examined in the [place] [address] ICU remains mechanically ventilated ILDA on CKD - ATN 2/2 sepsis/ Hypotension,UOP good,on IV Lasix ; requiring dialysis, Sedated with propofol Dex and fentanyl Chart reviewed Discussed with RN He remains critically ill intubated/sedated cont cardene gtt not able to tolerate PS trial 05/06/21 Change central line and send cath tip for cultures. 05-09 C. difficile PCR JONES FISHMAN MD,ADELSO DASILVA MD, MD ORDERED: BCULT -- Procedure Result BLOOD CULTURE Preliminary NO GROWTH AFTER 2 DAYS BLOOD CULTURE Preliminary NO GROWTH AFTER 4 DAYS 36 min cc time 05/10/2021 VENT [id number]%, 5 of PEEP Mild pulmonary edema with new small right pleural effusion and basilar opacities now on cardene gtt prn Patient seen and examined in the COVID-19 ICU remains mechanically ventilated ILDA on CKD - ATN 2/2 sepsis/ Hypotension,UOP good,on IV Lasix ; requiring dialysis, Sedated with propofol Dex and fentanyl Chart reviewed Discussed with RN He remains critically ill intubated/sedated cont cardene gtt not able to tolerate PS trial 05/06/21 Change central line and send cath tip for cultures. 05-09 C. difficile PCR JONES FSIHMAN MD, CHRISTOPHER S MD SISILLO, SABATO MD ORDERED: BCULT Procedure Result BLOOD CULTURE Preliminary NO GROWTH AFTER 2 DAYS BLOOD CULTURE Preliminary NO GROWTH AFTER 4 DAYS 33 min cc time 05/09/2021 VENT [id number]%, 5 of PEEP Mild pulmonary edema with new small right pleural effusion and basilar opacities now on cardene gtt prn Patient seen and examined in the [place] [address] ICU remains mechanically ventilated ILDA on CKD - ATN 2/2 sepsis/ Hypotension,UOP good,on IV Lasix ; requiring dialysis, Sedated with propofol Dex and fentanyl Chart reviewed Discussed with RN He remains critically ill intubated/sedated cont cardene gtt not able to tolerate PS trial 05/06/21 Change central line and send cath tip for cultures. 05-09 C. difficile PCR JONES FISHMAN MD,ADELSO DASILVA MD, MD ORDERED: BCULT Procedure Result BLOOD CULTURE Preliminary NO GROWTH AFTER 2 DAYS BLOOD CULTURE Preliminary NO GROWTH AFTER 4 DAYS 37 min cc time 05/08/2021 Currently on 40%, 5 of PEEP now on cardene gtt Patient seen and examined in the [place] [address] ICU remains mechanically ventilated ILDA on CKD - ATN 2/2 sepsis/ Hypotension,UOP good,on IV Lasix ; requiring dialysis, AC/20/500/40 percent with 5 of PEEP Sedated with propofol Dex and fentanyl Chart reviewed Discussed with RN He remains critically ill intubated/sedated cont cardene gtt not able to tolerate PS trial 05/06/21 JONES FISHMAN MD,ADELSO DASILVA MD, MD ORDERED: BCULT Procedure Result BLOOD CULTURE Preliminary NO GROWTH AFTER 2 DAYS BLOOD CULTURE Preliminary NO GROWTH AFTER 4 DAYS 33 min cc time 05/07/2021 Patient seen and examined in the [place] [address] ICU He remains mechanically ventilated ILDA on CKD - ATN 2/2 sepsis/ Hypotension,UOP good,on IV Lasix ; requiring dialysis, AC/20/500/40 percent with 5 of PEEP Sedated with propofol Dex and fentanyl Chart reviewed Discussed with RN He remains critically ill intubated/sedated cont cardene gtt not able to tolerate PS trial 05/06/21 JONES FISHMAN MD,ADELSO DASILVA MD, MD ORDERED: BCULT Procedure Result BLOOD CULTURE Preliminary NO GROWTH AFTER 2 DAYS 36 min cc time 05/06/2021 Patient seen and examined in the [place] [address] ICU He remains mechanically ventilated AC/20/500/40 percent with 5 of PEEP Sedated with propofol Dex and fentanyl Chart reviewed Discussed with RN He remains critically ill 05/05/2020 Patient seen and examined in the [place] [address] ICU He remains on the vent AC/20/500/40 percent with 5 of PEEP Discussed with RN Chart reviewed Has SCDs in place Nieves to bedside drainage He remains critically ill 05/04/2021 Patient seen and examined in the [place] [address] ICU Still intubated Sedated with propofol and fentanyl AC/20/500/70 percent with 5 of PEEP On dialysis currently Has SCDs in Nieves to bedside drainage Discussed with RN Chart reviewed 05/03/2021 Patient seen and examined in the [place] [address] ICU He is still intubated AC/20/500/70 percent with 5 of PEEP Has SCDs in place Nieves to bedside drainage Sedated with fentanyl Versed and propofol Discussed are Chart reviewed Remains critically ill 05/02/2021 Patient seen and examined in the [place] [address] ICU He is sedated with propofol fentanyl and Versed Ventilator settings as follow AC/20/500/40 percent with 5 of PEEP Has Nieves to bedside drainage Chart reviewed Discussed with RN He remains critically ill 05/01/2021 Patient seen and examined in the [place] [address] ICU He is still intubated AC/20/500/40 percent with 5 of PEEP In A. fib Sedated with propofol fentanyl and Versed Has a heparin drip Missy with RN Chart reviewed He remains critically 04/30/2020 Patient seen and examined in the [place] [address] ICU He remains on the vent AC/20/500/40 5% with 5 PEEP Currently on dialysis Has OG feeds running Has a Nieves to bedside drainage Sedated with propofol and fentanyl Reviewed chart Discussed with RN He remains critically ill Mr Cunha is a 75 yo male w/ PMHx CAD, HTN, Hyperlipidemia, subclavian steel syndrome, subclavian stenosis s/p left subclavian sent placement complicated by retroperitoneal hematoma s/p evacuation in 08/2015), asthma, BART, CKD, DM2 who presented from home with home health care noted that he was short of breath and valverde with O2 saturations less than 89% as low as 84% not improved with nasal cannulated oxygen placed on CPAP and brought to ED for further care. He was just discharged from the hospital a week ago on April 19, 2021 for abdominal pain and was going for further cardiac testing with outpatient stress testing scheduled on May 28, 2021. Had echocardiogram April 17, 2021 with normal-appearing EF with moderate concentric LVH no significant valvular abnormalities. WBC 20, Hb 10.7, platelets 268, NA 140, K3.8, BUN 21, CR 2.9, glucose 162, albumin 3, troponin I 1.372, NT proBNP 33,318. EKG appears sinus tachycardia rate of 105 bpm with multiple PACs small ST depressions in lead II and V5. TWI in V6. Chest radiograph with diffuse interstitial and alveolar opacities and ET tube 5.8 cm above the leilani. Due to worsening respiratory status ED physician elected to intubate patient. Seen postintubation. Blood pressure little low after propofol bolus, but improved. Significant white frothy sputum per ET tube. Admitted to ICU for further care 04/29/2021: Afebrile, remains on vent at FiO2 45%, PEEP 5. WBC 20.4. Hemodialysis per nephrology. We will continue treatment with empiric antibiotics, remdesivir, and steroids. Continue heparin infusion and supportive care. Critical care time 30 minutes reviewing chart, review labs, review imaging, discussion with RN. 04/28/2021: Afebrile. FiO2 50%, PEEP 5. Nontunneled HD catheter placed yesterday due to worsening kidney function; eGFR 16 (CKD4). Chest x-ray showed unchanged interstitial opacities. Continue empiric antibiotics, steroids, and remdesivir. Continue heparin infusion, and continue to follow cardiology recommendations on new diagnosis of A. fib. Critical care time 30 minutes reviewing chart, review labs, review imaging, discussion with RN. 04/27/2021: Afebrile. On vent with FiO2 50%, PEEP 5. Troponin 2.8 yesterday; probable type II, demand ischemia. New onset A. fib. Continue heparin drip and as needed digoxin, per cardiology. Continue treatment with remdesivir, steroids, and prophylactic antibiotics. CBG 323 this morning; will add basal insulin. Critical care 30 minutes spent reviewing labs, reviewing imaging, reviewing charts, and discussion with RN. 04/26/2021: COVID-19 positive. Febrile overnight that was managed with cooling blankets. On vent with FiO2 50%, PEEP 5. Per cardiology, elevated troponins likely secondary to demand ischemia; continue heparin drip per cardiology. Maintain fluid balance and avoid nephrotoxins. Continue treatment with remdesivir, steroids, and prophylactic antibiotics. 30 minutes critical care time spent reviewing charts, reviewing labs, reviewing imaging, and discussion with RN. 04/25/2021: On vent FiO2 50, PEEP 5. Febrile, T-max 103.3. Patient was initiated on cooling blankets. Procalcitonin 0.13. Continue coverage for hospital-acquired pneumonia with cefepime. MRSA PCR pending. Critical care time 30 minutes spent reviewing charts, reviewing labs, review of imaging, discussion with RN. Vitals/I&O Vitals/I&O: Vital Signs Date Time Temp Pulse Resp B/P (MAP) Pulse Ox O2 Delivery O2 Flow Rate FiO2 05/24/21 06:05 55 16 148/62 (90) 100 Ventilator 05/24/21 04:05 97.4 97.4 05/24/21 03:07 10.0 I & O 05/23/21 05/23/21 05/24/21 14:59 22:59 06:59 Intake Total 745 ml Output Total 320 ml 180 ml 75 ml Balance -320 ml -180 ml 670 ml Physical Exam Physical Exam: GENERAL: Well-developed and well-nourished male, sedated HEENT: Normocephalic, atraumatic, redness and erythema of both eyes improved, NG tube present NECK: right dialysis catheter present clean,central line changed ( 05/11) Trach + HEART: S1, S2. LUNGS: Decreased breath sounds. ABDOMEN: distended,hypoactive BS GENITOURINARY: Nieves in place. EXTREMITIES: Edema present. DERMATOLOGIC: Warm, dry, no generalized rash. NEUROLOGIC: Opens eyes PICC line clean General: No acute distress, Other (Answering some questions when awake) Heart: Regular rate, Normal S1, Normal S2 Lungs: Clear Abdomen: Normal bowel sounds, Other (ND) Extremities: No clubbing, No cyanosis, Other (Lower extremity edema) Skin: No rashes, No breakdown, No significant lesion Labs Labs: Laboratory Tests Test 05/23/21 13:29 05/23/21 16:47 05/24/21 00:31 Glucose (Fingerstick) 177 mg/dL (70-99) 229 mg/dL (70-99) 233 mg/dL (70-99) Assessment and Plan Assessmemt and Plan Problems Medical Problems: (1) Elevated troponin Status: Acute (2) Person under investigation for COVID-19 Status: Acute (3) Pulmonary edema Status: Acute Comment Review of Relevant I have reviewed the following items juanita (where applicable) has been applied. Medications: Current Medications Medications (Trade) Dose Ordered Sig/Jodie Route PRN Reason Start Time Stop Time Status Last Admin Dose Admin Meropenem 500 mg/ Sodium Chloride 50 ml @ 100 mls/hr DAILY IV 05/23/21 09:00 05/23/21 10:05 Furosemide (Lasix) 80 mg 1X ONCE IVP 05/23/21 10:45 05/23/21 10:46 DC 05/23/21 13:18 Potassium Chloride/Water 100 ml @ 100 mls/hr Q1H IV 05/23/21 10:45 05/23/21 12:44 DC 05/23/21 13:17 Sodium Chloride 90 meq/Potassium Chloride 50 meq/ Magnesium Sulfate 10 meq/Calcium Gluconate 5 meq/ Multivitamins 5 ml/Zinc/Copper/ Manganese/ Selenium 1 ml/ Total Parenteral Nutrition/Amino Acids/Dextrose/ Fat Emulsion Intravenous 1,080 ml @ 45 mls/hr TPN CONT IV 05/23/21 22:00 05/24/21 21:59 05/23/21 22:00 Justifications for Admission General Conditions Altered mental status?: Yes Justification of admission: Patient has tachycardia (> 100 beats per minute) or hypotension (SBP < 90 mm Hg) leading to inadequate systemic perfusion as indicated by severe/persistent altered mental status. Other Justification SARAH BETH ARREOLA MD May 24, 2021 06:31
[2021-05-24] MEDS: HEPARIN for SUB-Q USE 5,000 UNIT/ML VIAL. SQ SCH ×3 (06:36→20:10)
[2021-05-24] MEDS: METOPROLOL IV PUSH 5 MG/5 ML VIAL. IVP SCH ×4 (06:38→18:07)
[2021-05-24 06:56] LABS: CALCIUM 8.6 mg/dL (8.5-10.1); CREATININE 2.7 mg/dL (0.7-1.3); GFR 28.1; MAGNESIUM 2.1 mg/dL (1.8-2.4); PHOSPHORUS 4.2 mg/dL (2.6-4.7); POTASSIUM 3.5 mmol/L (3.5-5.1)
--- NOTE | 2021-05-24 07:48 | PDOC ---
Infectious Disease Note Subjective: Subjective Pt remains vent dependent afebrile d/W nursing staff Vital Signs: Vital Signs Vital Signs Date Time Temp Pulse Resp B/P (MAP) Pulse Ox O2 Delivery O2 Flow Rate FiO2 05/24/21 06:38 55 148/62 05/24/21 06:05 16 100 Ventilator 05/24/21 04:05 97.4 97.4 05/24/21 03:07 10.0 Physical Exam: PHYSICAL EXAM GENERAL: Well-developed and well-nourished male, sedated HEENT: Normocephalic, atraumatic, redness and erythema of both eyes improved, NG tube present NECK: right dialysis catheter present clean,central line changed ( 05/11) Trach + HEART: S1, S2. LUNGS: Decreased breath sounds. ABDOMEN: distended,hypoactive BS GENITOURINARY: Nieves in place. EXTREMITIES: Edema present. DERMATOLOGIC: Warm, dry, no generalized rash. NEUROLOGIC: Opens eyes PICC line clean Medications: Inpatient Meds: Medications reviewed. Labs: Lab Laboratory Tests Test 05/23/21 13:29 05/23/21 16:47 05/24/21 00:31 05/24/21 06:10 Glucose (Fingerstick) 177 mg/dL (70-99) 229 mg/dL (70-99) 233 mg/dL (70-99) Sodium Level 139 mmol/L (136-145) Potassium Level 3.5 mmol/L (3.5-5.1) Chloride Level 108 mmol/L (98-107) Carbon Dioxide Level 23 mmol/L (21-32) Anion Gap 8 (6-14) Blood Urea Nitrogen 37 mg/dL (8-26) Creatinine 2.7 mg/dL (0.7-1.3) Estimated GFR (Cockcroft-Gault) 28.1 Glucose Level 270 mg/dL (70-99) Calcium Level 8.6 mg/dL (8.5-10.1) Phosphorus Level 4.2 mg/dL (2.6-4.7) Magnesium Level 2.1 mg/dL (1.8-2.4) Objective: Assessment: 1. Febrile illness improved 2. Leukocytosis, was on steroids,ileus could contribute 3. COVID-19 pneumonia. 4. Acute hypoxic respiratory failure status post intubation.Now S/P Trach 05/15 5. Congestive heart failure, acute on chronic. 6. Acute kidney injury on chronic kidney disease on hemodialysis. 7. Diabetes mellitus 2. 8. Atrial fibrillation. 9. Anemia. 10. Protein-calorie malnutrition. 11. Hypertention 12.Hyponatremia 13. Ileus, Bowel obstruction Peg TF on hold, OG to LIS 14.on PPN 15.Mild to Moderate Pleural effusion 16.Lt eye conjunctivitis improved Plan: Plan of Care 1. Continue Meropenem renal dosing Cultures negative . Has been on broad spectrum antibiotics since admission has been on zyvox, cefepime, daptomycin since admission 2. Follow-up labs and cultures. 3. Central line changed on 05/11,C. difficile PCR negative 4. Continue supportive care. 5 Critically ill. 6. DC Erythromycin ointment,cont local eye care WBC remains elevated though trend has improved, could be reactive from underlying ileus vs other f/u labs this am Discussed with nursing staff ALAYNA RIVERO MD May 24, 2021 07:48
[2021-05-24] MEDS: ASPIRIN CHEWABLE 81 MG TABLET. PO SCH (07:59)
[2021-05-24] MEDS: NYSTATIN TOPICAL POWDER 15GM BOTTLE. TP SCH ×2 (08:23→20:11)
[2021-05-24] MEDS: MEROPENEM 500 MG in IV NORMAL SALINE 50ML 50 ML IV SCH (08:23)
[2021-05-24] MEDS: ERYTHROMYCIN 0.5% OPHTH OINTMENT 1GM TUBE. OU SCH ×2 (08:23→20:11)
[2021-05-24] MEDS: PANTOPRAZOLE IV PUSH 40 MG VIAL. IVP SCH (08:23)
[2021-05-24] MEDS: hydrALAZINE 20 MG/ML VIAL. IVP PRN (08:43)
[2021-05-24 09:05] LABS: BASO # 0.1 x10^3/uL (0.0-0.2); BASO % 1 % (0-3); EOS # 0.6 x10^3/uL (0.0-0.7); EOS % 4 % (0-3); HEMATOCRIT 25.9 % (39.0-53.0); HEMOGLOBIN 8.6 g/dL (13.0-17.5); LYMPH % 21 % (24-48); MEAN CORPUSCULAR HEMOGLOBIN 28 pg (25-35); MEAN CORPUSCULAR HGB CONC 33 g/dL (31-37); MEAN CORPUSCULAR VOLUME 85 fL (79-100); MONO # 1.6 x10^3/uL (0.0-1.1); MONO % 11 % (0-9); NEUT # 8.9 x10^3/uL (1.8-7.7); NEUT % 63 % (31-73); PLATELET COUNT 248 x10^3/uL (140-400); RED BLOOD COUNT 3.05 x10^6/uL (4.30-5.70); WHITE BLOOD COUNT 14.1 x10^3/uL (4.0-11.0)
[2021-05-24] MEDS: LABETALOL 20 MG/4 ML DISP.SYRIN. IVP PRN (09:25)
[2021-05-24 09:27] LABS: ALBUMIN 1.4 g/dL (3.4-5.0); ALBUMIN/GLOBULIN RATIO 0.3 (1.0-1.7); CALCIUM 8.8 mg/dL (8.5-10.1); CREATININE 2.5 mg/dL (0.7-1.3); GFR 30.7; POTASSIUM 3.6 mmol/L (3.5-5.1); TOTAL BILIRUBIN 0.4 mg/dL (0.2-1.0); TOTAL PROTEIN 5.8 g/dL (6.4-8.2)
[2021-05-24] MEDS: TPN PER PHARMACY MC PRN ×2 (09:49→09:52)
--- NOTE | 2021-05-24 09:51 | NUR ---
Pharmacy TPN Dosing Note S: NILAM LAN is a 75 year old M Currently receiving Central Continuous TPN started 05/22/21 B:Pertinent PMH: ILEUS Height: 6 feet, 2 inches Weight: 160.2 kg Current diet: NPO LABS: Sodium: 142 Potassium: 3.6 Chloride: 110 Calcium: 8.8 Corrected Calcium: 10.88 Magnesium: 2.1 CO2: 20 SCr: 2.5 Glucose: 276 Albumin: 1.4 AST: 25 ALT: 16 TPN FORMULA: TPN TYPE: Central Continuous AMINO ACIDS: 60 gm DEXTROSE: 195 gm LIPIDS: 20 gm SODIUM CHLORIDE: 90 mEq POTASSIUM CHLORIDE: 50 mEq MAGNESIUM: 10 mEq CALCIUM: 5 mEq MULTIPLE VITAMIN: 5 ml TRACE ELEMENTS: 1 ml(s) TPN PLAN: CONTINUE SAME R: Continue TPN Will monitor electrolytes, glucose, and tolerance to TPN. Jaqueline Watson RPH, 05/24/21 0913
--- NOTE | 2021-05-24 09:51 | PDOC ---
PULMONARY PROGRESS NOTES DATE: 05/24/21 TIME: 09:49 Subjective currently on PS 10/5,40% direct pressure support all day yesterday. Blood pressure difficult to control during CPAP trials. On multiple antihyperte nsive medications. RN reports decreased urine output. Gastric tube reduced drainage overnight Afebrile Does not tolerate reducing sedation, has tachycardia/arrhythmia Vitals Vital Signs Date Time Temp Pulse Resp B/P (MAP) Pulse Ox O2 Delivery O2 Flow Rate FiO2 05/24/21 09:25 101 193/90 05/24/21 09:10 100 Ventilator 05/24/21 06:05 16 05/24/21 04:05 97.4 97.4 05/24/21 03:07 10.0 Comments Awake and follows some commands. No obvious respiratory distress HEENT: Other (Trachea midline) Lungs: Clear Cardiovascular: S1, S2 Abdomen: Soft Extremities: No Edema Labs Laboratory Tests Test 05/22/21 11:57 05/22/21 17:40 05/23/21 00:40 05/23/21 06:00 Glucose (Fingerstick) 121 mg/dL (70-99) 136 mg/dL (70-99) 174 mg/dL (70-99) Sodium Level 141 mmol/L (136-145) Potassium Level 3.2 mmol/L (3.5-5.1) Chloride Level 108 mmol/L (98-107) Carbon Dioxide Level 18 mmol/L (21-32) Anion Gap 15 (6-14) Blood Urea Nitrogen 37 mg/dL (8-26) Creatinine 2.6 mg/dL (0.7-1.3) Estimated GFR (Cockcroft-Gault) 29.3 Glucose Level 176 mg/dL (70-99) Calcium Level 8.6 mg/dL (8.5-10.1) Phosphorus Level 4.9 mg/dL (2.6-4.7) Magnesium Level 2.2 mg/dL (1.8-2.4) Triglycerides Level 167 mg/dL (0-150) Test 05/23/21 06:05 05/23/21 13:29 05/23/21 16:47 05/24/21 00:31 Glucose (Fingerstick) 172 mg/dL (70-99) 177 mg/dL (70-99) 229 mg/dL (70-99) 233 mg/dL (70-99) Test 05/24/21 06:10 05/24/21 08:30 Sodium Level 139 mmol/L (136-145) 142 mmol/L (136-145) Potassium Level 3.5 mmol/L (3.5-5.1) 3.6 mmol/L (3.5-5.1) Chloride Level 108 mmol/L (98-107) 110 mmol/L (98-107) Carbon Dioxide Level 23 mmol/L (21-32) 20 mmol/L (21-32) Anion Gap 8 (6-14) 12 (6-14) Blood Urea Nitrogen 37 mg/dL (8-26) 37 mg/dL (8-26) Creatinine 2.7 mg/dL (0.7-1.3) 2.5 mg/dL (0.7-1.3) Estimated GFR (Cockcroft-Gault) 28.1 30.7 Glucose Level 270 mg/dL (70-99) 276 mg/dL (70-99) Calcium Level 8.6 mg/dL (8.5-10.1) 8.8 mg/dL (8.5-10.1) Phosphorus Level 4.2 mg/dL (2.6-4.7) Magnesium Level 2.1 mg/dL (1.8-2.4) White Blood Count 14.1 x10^3/uL (4.0-11.0) Red Blood Count 3.05 x10^6/uL (4.30-5.70) Hemoglobin 8.6 g/dL (13.0-17.5) Hematocrit 25.9 % (39.0-53.0) Mean Corpuscular Volume 85 fL (79-100) Mean Corpuscular Hemoglobin 28 pg (25-35) Mean Corpuscular Hemoglobin Concent 33 g/dL (31-37) Red Cell Distribution Width 17.0 % (11.5-14.5) Platelet Count 248 x10^3/uL (140-400) Neutrophils (%) (Auto) 63 % (31-73) Lymphocytes (%) (Auto) 21 % (24-48) Monocytes (%) (Auto) 11 % (0-9) Eosinophils (%) (Auto) 4 % (0-3) Basophils (%) (Auto) 1 % (0-3) Neutrophils # (Auto) 8.9 x10^3/uL (1.8-7.7) Lymphocytes # (Auto) 3.0 x10^3/uL (1.0-4.8) Monocytes # (Auto) 1.6 x10^3/uL (0.0-1.1) Eosinophils # (Auto) 0.6 x10^3/uL (0.0-0.7) Basophils # (Auto) 0.1 x10^3/uL (0.0-0.2) BUN/Creatinine Ratio 15 (6-20) Total Bilirubin 0.4 mg/dL (0.2-1.0) Aspartate Amino Transf (AST/SGOT) 25 U/L (15-37) Alanine Aminotransferase (ALT/SGPT) 16 U/L (16-63) Alkaline Phosphatase 74 U/L (46-116) Total Protein 5.8 g/dL (6.4-8.2) Albumin 1.4 g/dL (3.4-5.0) Albumin/Globulin Ratio 0.3 (1.0-1.7) Laboratory Tests Test 05/23/21 13:29 05/23/21 16:47 05/24/21 00:31 05/24/21 06:10 Glucose (Fingerstick) 177 mg/dL (70-99) 229 mg/dL (70-99) 233 mg/dL (70-99) Sodium Level 139 mmol/L (136-145) Potassium Level 3.5 mmol/L (3.5-5.1) Chloride Level 108 mmol/L (98-107) Carbon Dioxide Level 23 mmol/L (21-32) Anion Gap 8 (6-14) Blood Urea Nitrogen 37 mg/dL (8-26) Creatinine 2.7 mg/dL (0.7-1.3) Estimated GFR (Cockcroft-Gault) 28.1 Glucose Level 270 mg/dL (70-99) Calcium Level 8.6 mg/dL (8.5-10.1) Phosphorus Level 4.2 mg/dL (2.6-4.7) Magnesium Level 2.1 mg/dL (1.8-2.4) Test 05/24/21 08:30 White Blood Count 14.1 x10^3/uL (4.0-11.0) Red Blood Count 3.05 x10^6/uL (4.30-5.70) Hemoglobin 8.6 g/dL (13.0-17.5) Hematocrit 25.9 % (39.0-53.0) Mean Corpuscular Volume 85 fL (79-100) Mean Corpuscular Hemoglobin 28 pg (25-35) Mean Corpuscular Hemoglobin Concent 33 g/dL (31-37) Red Cell Distribution Width 17.0 % (11.5-14.5) Platelet Count 248 x10^3/uL (140-400) Neutrophils (%) (Auto) 63 % (31-73) Lymphocytes (%) (Auto) 21 % (24-48) Monocytes (%) (Auto) 11 % (0-9) Eosinophils (%) (Auto) 4 % (0-3) Basophils (%) (Auto) 1 % (0-3) Neutrophils # (Auto) 8.9 x10^3/uL (1.8-7.7) Lymphocytes # (Auto) 3.0 x10^3/uL (1.0-4.8) Monocytes # (Auto) 1.6 x10^3/uL (0.0-1.1) Eosinophils # (Auto) 0.6 x10^3/uL (0.0-0.7) Basophils # (Auto) 0.1 x10^3/uL (0.0-0.2) Sodium Level 142 mmol/L (136-145) Potassium Level 3.6 mmol/L (3.5-5.1) Chloride Level 110 mmol/L (98-107) Carbon Dioxide Level 20 mmol/L (21-32) Anion Gap 12 (6-14) Blood Urea Nitrogen 37 mg/dL (8-26) Creatinine 2.5 mg/dL (0.7-1.3) Estimated GFR (Cockcroft-Gault) 30.7 BUN/Creatinine Ratio 15 (6-20) Glucose Level 276 mg/dL (70-99) Calcium Level 8.8 mg/dL (8.5-10.1) Total Bilirubin 0.4 mg/dL (0.2-1.0) Aspartate Amino Transf (AST/SGOT) 25 U/L (15-37) Alanine Aminotransferase (ALT/SGPT) 16 U/L (16-63) Alkaline Phosphatase 74 U/L (46-116) Total Protein 5.8 g/dL (6.4-8.2) Albumin 1.4 g/dL (3.4-5.0) Albumin/Globulin Ratio 0.3 (1.0-1.7) Medications Active Scripts Medications Dose Route/Sig Max Daily Dose Days Date Category Glyburide 2.5 Mg Tablet 1 Tab PO DAILY 04/19/21 Rx Polyethylene Glycol 3350 17 Gm Powd.pack 17 Gm PO DAILY 04/19/21 Rx Dok (Docusate Sodium) 100 Mg Capsule 100 Mg PO PRN DAILY PRN 04/19/21 Rx Bisacodyl 5 Mg Tablet.dr 5 Mg PO PRN DAILY PRN 04/19/21 Rx Acetaminophen 325 Mg Tablet 650 Mg PO PRN Q4HRS PRN 04/19/21 Rx Aspirin Ec (Aspirin) 81 Mg Tablet.dr 81 Mg PO DAILYWBKFT 04/19/21 Rx Hydralazine Hcl 25 Mg Tablet 25 Mg PO QID 04/19/21 Rx Fenofibrate 54 Mg Tablet 1 Tab PO DAILY 04/17/21 Reported Potassium Chloride (Potassium Chloride) 20 Meq Tablet.er 20 Meq PO DAILY 04/17/21 Reported Coreg (Carvedilol) 12.5 Mg Tablet 37.5 Mg PO BIDWMEALS 04/17/21 Reported Rosuvastatin Calcium 40 Mg Tablet 40 Mg PO QHS 04/17/21 Reported Gabapentin (Gabapentin) 100 Mg Capsule 200 Mg PO BID 04/17/21 Reported Montelukast Sodium Tablet (Montelukast Sodium) 10 Mg Tablet 10 Mg PO HS 04/17/21 Reported Protonix (Pantoprazole Sodium) 20 Mg Tablet.dr 2 Tab PO DAILY 04/17/21 Reported Amlodipine Besylate 5 Mg Tablet 5 Mg PO DAILY 04/17/21 Reported Furosemide 40 Mg Tablet 1 Tab PO DAILY 04/17/21 Reported Proair Hfa Inhaler (Albuterol Sulfate) 8.5 Gm Hfa.aer.ad 2 Puff IH PRN Q4-6HRS PRN 21 04/16/21 Reported Advair 100-50 Diskus (Fluticasone/Salmeterol) 1 Each Disk.w.dev 1 Puff IH BID 04/16/21 Reported Comments Chest x-ray reviewed by me dated 05/23/2021. Minimal left basal effusion/atelectasis. Impression . IMPRESSION: 1. Acute hypoxic respiratory failure, multifactorial/COVID-19 viral pneum onia/ARDS, ongoing, intubated 04/25/2021, now status post tracheostomy 05/15/[address] chest with bilateral diffuse interstitial infiltrates without any significant pleural effusion 3. Leukocytosis, sepsis--improved 4. Non-ST segment elevation LA 5. History of tobacco use, suspect COPD, unknown FEV1 6. Chronic kidney disease.== HD on hold 7. Metabolic acidosis multifactorial 8. Abnormal chest x-ray 9. Hypoglycemia, continue to monitor--- resolved 10. Hypotension, suspect volume deficit,/possible sepsis--- resolved 11. Fever--improved 12. Anemia--improved 13. Atrial fibrillation with rapid ventricular response, currently rate controlled 14. Ileus Plan . Updated 05/24/21 Continue current vent support, currently on PS 10/5 40%, tolerating well, PS during the day as tolerated S/P trach 05/15/2021 unable to wean precedex 2/2 increased BP and HR Continue multi antihypertensive medications for control of blood pressure. Follow ABG/CXR--changes as needed Follow ID recs for ABX Follow GI recs--now with ileus, PEG tube on hold, ongoing gastric output og to LIS Follow nephrology recs-- HD on hold, last HD was 05/12/21. Urine output is decreasing. Have discussed with Dr. Ariza. He will consider dialyzing him again Follow Cardiology recs-- Continue TPN for nutritional support DVT/GI PPX: sq heparin D/W RN and RT Pt. is DNR cct 30 min Updated 05/23/21 Continue current vent support, currently on PS 10/5 40%, tolerating well, PS during the day as tolerated S/P trach 05/15/2021 unable to wean precedex 2/2 increased BP and HR Follow ABG/CXR--changes as needed Follow ID recs for ABX Follow GI recs--now with ileus, PEG tube on hold, ongoing gastric output og to LIS Follow nephrology recs-- HD on hold, last HD was 05/12/21 Follow Cardiology recs-- Continue TPN for nutritional support DVT/GI PPX: sq heparin D/W RN and RT Pt. is DNR cct 30 min JONES FISHMAN MD May 24, 2021 09:51
--- NOTE | 2021-05-24 10:05 | PDOC ---
Renal-Progress Notes Subjective Notes Notes NO COMPLAINTS. ON THE VENT History of Present Illness Hx of present illness DECREASING UO. NOT RESPONDING TO DIURETICS OR FLUID CHALLENGE Vitals Vitals Vital Signs Date Time Temp Pulse Resp B/P (MAP) Pulse Ox O2 Delivery O2 Flow Rate FiO2 05/24/21 09:25 101 193/90 05/24/21 09:10 100 Ventilator 05/24/21 06:05 16 05/24/21 04:05 97.4 97.4 05/24/21 03:07 10.0 Weight Weight [ ] I.O. Intake and Output Intake and Output 05/24/21 07:00 Intake Total 745 ml Output Total 575 ml Balance 170 ml IV Total 745 ml Output Urine Total 575 ml Labs Labs Laboratory Tests Test 05/23/21 13:29 05/23/21 16:47 05/24/21 00:31 05/24/21 06:10 Glucose (Fingerstick) 177 mg/dL (70-99) 229 mg/dL (70-99) 233 mg/dL (70-99) Sodium Level 139 mmol/L (136-145) Potassium Level 3.5 mmol/L (3.5-5.1) Chloride Level 108 mmol/L (98-107) Carbon Dioxide Level 23 mmol/L (21-32) Anion Gap 8 (6-14) Blood Urea Nitrogen 37 mg/dL (8-26) Creatinine 2.7 mg/dL (0.7-1.3) Estimated GFR (Cockcroft-Gault) 28.1 Glucose Level 270 mg/dL (70-99) Calcium Level 8.6 mg/dL (8.5-10.1) Phosphorus Level 4.2 mg/dL (2.6-4.7) Magnesium Level 2.1 mg/dL (1.8-2.4) Test 05/24/21 08:30 White Blood Count 14.1 x10^3/uL (4.0-11.0) Red Blood Count 3.05 x10^6/uL (4.30-5.70) Hemoglobin 8.6 g/dL (13.0-17.5) Hematocrit 25.9 % (39.0-53.0) Mean Corpuscular Volume 85 fL (79-100) Mean Corpuscular Hemoglobin 28 pg (25-35) Mean Corpuscular Hemoglobin Concent 33 g/dL (31-37) Red Cell Distribution Width 17.0 % (11.5-14.5) Platelet Count 248 x10^3/uL (140-400) Neutrophils (%) (Auto) 63 % (31-73) Lymphocytes (%) (Auto) 21 % (24-48) Monocytes (%) (Auto) 11 % (0-9) Eosinophils (%) (Auto) 4 % (0-3) Basophils (%) (Auto) 1 % (0-3) Neutrophils # (Auto) 8.9 x10^3/uL (1.8-7.7) Lymphocytes # (Auto) 3.0 x10^3/uL (1.0-4.8) Monocytes # (Auto) 1.6 x10^3/uL (0.0-1.1) Eosinophils # (Auto) 0.6 x10^3/uL (0.0-0.7) Basophils # (Auto) 0.1 x10^3/uL (0.0-0.2) Sodium Level 142 mmol/L (136-145) Potassium Level 3.6 mmol/L (3.5-5.1) Chloride Level 110 mmol/L (98-107) Carbon Dioxide Level 20 mmol/L (21-32) Anion Gap 12 (6-14) Blood Urea Nitrogen 37 mg/dL (8-26) Creatinine 2.5 mg/dL (0.7-1.3) Estimated GFR (Cockcroft-Gault) 30.7 BUN/Creatinine Ratio 15 (6-20) Glucose Level 276 mg/dL (70-99) Calcium Level 8.8 mg/dL (8.5-10.1) Total Bilirubin 0.4 mg/dL (0.2-1.0) Aspartate Amino Transf (AST/SGOT) 25 U/L (15-37) Alanine Aminotransferase (ALT/SGPT) 16 U/L (16-63) Alkaline Phosphatase 74 U/L (46-116) Total Protein 5.8 g/dL (6.4-8.2) Albumin 1.4 g/dL (3.4-5.0) Albumin/Globulin Ratio 0.3 (1.0-1.7) Micro Micro Microbiology 05/11/21 Gram Stain Evaluation - Final, Complete 05/11/21 Respiratory Culture - Final, Complete 05/04/21 Gram Stain - Final, Complete 05/04/21 Aerobic Culture - Final, Complete 05/04/21 Blood Culture - Final, Complete NO GROWTH AFTER 5 DAYS Review of Systems Constitutional: yes: unresponsive, other Physical Exam General Appearance: no apparent distress, other (ON THE VENT) Skin: warm, edema Respiratory: decreased breath sounds Heart: S1S2 Abdomen: bowel sounds present Genitourinary: bladder flat, mooney catheter Extremities: pulses present, edema Neurology: other (sedated) Musculoskeletal: Other Assessment Assessment IMP HYPONATREMIA-RESOLVED HYPOKALEMIA LOW MAG-CORRECTED [id number] UO CKD - SUSPECT STAGE 3 ACUTE HYPOXIC RESP FAILURE COVID 19 PNEUMONIA MET ACIDOSIS-BETTER LEUCOCYTOSIS ANEMIA S/P TRACH ANASARCA ILEUS PLAN REPLACE ELECTROLYTES REMAINS CRITICALLY ILL VENT SUPPORT-FIO2 OF 40% NUTRITION-TPN PRESSORS NEEDED HD LAST ON SAT 08-07 RESUME HD TODAY DUE TO LOW UO SINCE NOT RESPONDING TO DIURETICS OR FLUID CHALLENGE UF ABOUT 3.0-4.0 LITERS CONT TPN RESUME TF WHEN FEASIBLE LTAC TRANSFER PENDING WILL FOLLOW JEANINE NEWTON MD May 24, 2021 10:05
--- NOTE | 2021-05-24 10:16 | NUR ---
SS following up with discharge planning. SS reviewed pt chart and discussed with pt RN. Pt is currently on the vent at 40% on CPAP mode. COVID19 recovered. Trach in place. Pt on IV Meropenem. NG in place. TPN. Per RN, pt pending ileus resolution and peg placement. Pt on Fentanyl and Precedex. Hemodialysis today. Pt accepted at [facility], ; fax [phone], pending insurance authorization. SS will continue to follow for discharge planning.
--- NOTE | 2021-05-24 12:16 | PDOC ---
Date of Service: DATE: 05/24/21 TIME: 12:11 Objective: Objective: Reviewed chart - urine output decreased, consideration for HD again. NG output not charted. Nurse reports at least 200 out so far this shift. On TPN. Vital Signs: Vital Signs Date Time Temp Pulse Resp B/P (MAP) Pulse Ox O2 Delivery O2 Flow Rate FiO2 05/24/21 11:36 100 Ventilator 05/24/21 10:00 82 23 175/88 (117) 05/24/21 08:00 97.0 97.0 05/24/21 03:07 10.0 Labs: Laboratory Tests Test 05/23/21 13:29 05/23/21 16:47 05/24/21 00:31 05/24/21 06:10 Glucose (Fingerstick) 177 mg/dL 229 mg/dL 233 mg/dL Sodium Level 139 mmol/L Potassium Level 3.5 mmol/L Chloride Level 108 mmol/L Carbon Dioxide Level 23 mmol/L Anion Gap 8 Blood Urea Nitrogen 37 mg/dL Creatinine 2.7 mg/dL Estimated GFR (Cockcroft-Gault) 28.1 Glucose Level 270 mg/dL Calcium Level 8.6 mg/dL Phosphorus Level 4.2 mg/dL Magnesium Level 2.1 mg/dL Test 05/24/21 08:30 White Blood Count 14.1 x10^3/uL Red Blood Count 3.05 x10^6/uL Hemoglobin 8.6 g/dL Hematocrit 25.9 % Mean Corpuscular Volume 85 fL Mean Corpuscular Hemoglobin 28 pg Mean Corpuscular Hemoglobin Concent 33 g/dL Red Cell Distribution Width 17.0 % Platelet Count 248 x10^3/uL Neutrophils (%) (Auto) 63 % Lymphocytes (%) (Auto) 21 % Monocytes (%) (Auto) 11 % Eosinophils (%) (Auto) 4 % Basophils (%) (Auto) 1 % Neutrophils # (Auto) 8.9 x10^3/uL Lymphocytes # (Auto) 3.0 x10^3/uL Monocytes # (Auto) 1.6 x10^3/uL Eosinophils # (Auto) 0.6 x10^3/uL Basophils # (Auto) 0.1 x10^3/uL Platelet Estimate Pending Sodium Level 142 mmol/L Potassium Level 3.6 mmol/L Chloride Level 110 mmol/L Carbon Dioxide Level 20 mmol/L Anion Gap 12 Blood Urea Nitrogen 37 mg/dL Creatinine 2.5 mg/dL Estimated GFR (Cockcroft-Gault) 30.7 BUN/Creatinine Ratio 15 Glucose Level 276 mg/dL Calcium Level 8.8 mg/dL Total Bilirubin 0.4 mg/dL Aspartate Amino Transf (AST/SGOT) 25 U/L Alanine Aminotransferase (ALT/SGPT) 16 U/L Alkaline Phosphatase 74 U/L Total Protein 5.8 g/dL Albumin 1.4 g/dL Albumin/Globulin Ratio 0.3 PE: GEN: NAD LUNGS: trach/vent HEART: RRR ABD: NGT bilious - canister nearly full NEURO/PSYCH: sedated A/P: COVID-19/resp failure Ileus - PEG on hold -- Monitor NG output. Justicifation of Admission Dx: Justifications for Admission: Justification of Admission Dx: Yes Aspiration Pneumonia: Hemodynamic Instability TAIWO THEODORE May 24, 2021 12:16
[2021-05-24 12:45] LABS: % BANDS 3 % (0-9); % EOS 3 % (0-5); % LYMPHS 23 % (24-48); % MONOS 10 % (0-10); % MYELOS 1 % (0-0); % SEGS 60 % (35-66); NUCLEATED RBC 1
[2021-05-24 12:46] LABS: PLT ESTIMATE ADEQUATE (ADEQUATE)
[2021-05-24] MEDS ORDERED: IV NORMAL SALINE 1000ML BAG 1,000 ML IV PRN ×2 (14:00)
[2021-05-24] MEDS ORDERED: DIALYSIS PATIENT. MC PRN ×2 (14:00)
[2021-05-24] MEDS ORDERED: MIDAZOLAM HCL/PF 5 MG/5 ML VIAL. IV ONE (15:15)
[2021-05-24] MEDS: MONTELUKAST SODIUM 10 MG TABLET. PO SCH (20:11)
[2021-05-24] MEDS: ATORVASTATIN CALCIUM 40 MG TABLET. PO SCH (20:11)
[2021-05-24] MEDS: INSULIN GLARGINE SYRINGE. SQ SCH (21:40)
[2021-05-24] MEDS ORDERED: TOTAL PARENTERAL NUTRITION IV SCH (22:00)
[2021-05-24] MEDS ORDERED: [UNRECOGNIZED DRUG - OTHER] IV SCH (22:00)
[2021-05-24] MEDS ORDERED: AMINO ACID IV SCH (22:00)
[2021-05-24] MEDS ORDERED: DEXTROSE 70% IV SCH (22:00)
[2021-05-25] VITALS (24 sets, daily range): BP systolic 114–205; BP diastolic 46–100
[2021-05-25] MEDS: INSULIN LISPRO 300 UNITS/3 ML VIAL. SQ SCH ×4 (00:01→18:06)
[2021-05-25] MEDS: METOPROLOL IV PUSH 5 MG/5 ML VIAL. IVP SCH ×4 (00:05→21:07)
[2021-05-25] MEDS: DEXMEDETOMIDINE 400 MCG in IV NORMAL SALINE 100ML 96 ML IV PRN ×5 (02:34→22:10)
[2021-05-25 05:29] LABS: BASO # 0.1 x10^3/uL (0.0-0.2); BASO % 1 % (0-3); EOS # 0.6 x10^3/uL (0.0-0.7); EOS % 4 % (0-3); HEMATOCRIT 22.9 % (39.0-53.0); HEMOGLOBIN 7.3 g/dL (13.0-17.5); LYMPH # 3.6 x10^3/uL (1.0-4.8); LYMPH % 24 % (24-48); MEAN CORPUSCULAR HEMOGLOBIN 27 pg (25-35); MEAN CORPUSCULAR HGB CONC 32 g/dL (31-37); MEAN CORPUSCULAR VOLUME 84 fL (79-100); MONO # 1.8 x10^3/uL (0.0-1.1); MONO % 12 % (0-9); NEUT # 8.9 x10^3/uL (1.8-7.7); NEUT % 60 % (31-73); PLATELET COUNT 274 x10^3/uL (140-400); RED BLOOD COUNT 2.72 x10^6/uL (4.30-5.70); RED CELL DISTRIBUTION WIDTH 17.4 % (11.5-14.5); WHITE BLOOD COUNT 14.9 x10^3/uL (4.0-11.0)
[2021-05-25 05:48] LABS: CALCIUM 8.5 mg/dL (8.5-10.1); CREATININE 1.9 mg/dL (0.7-1.3); GFR 42.1; PHOSPHORUS 2.8 mg/dL (2.6-4.7); POTASSIUM 3.8 mmol/L (3.5-5.1)
[2021-05-25] MEDS: HEPARIN for SUB-Q USE 5,000 UNIT/ML VIAL. SQ SCH ×3 (06:34→22:14)
--- NOTE | 2021-05-25 07:33 | PDOC ---
[employer] PROGRESS NOTE Date of Service DOS: DATE: 05/25/21 TIME: 07:28 Chief Complaint Chief Complaint Respiratory failure requiring intubation COVID-19 Acute [facility] A. fib SIRS Hypertension with hypertensive urgency Hyperlipidemia CKD Diabetes History of bilateral subclavian stenosis History of marijuana use Severe protein calorie malnutrition Trach placed on May 15 GI consulted for PEG evaluation --> patient with a lot of vomiting yesterday thus current NG tube to low intermittent suction History of Present Illness History of Present Illness 05/25/2021: Afebrile. On vent with FiO2 40%, PEEP 5. Hemoglobin 8.6 yesterday, hemoglobin 7.3 today. Reportedly had HD yesterday. Continue IV antibiotics, per ID; WBC possibly reactive to ileus. Has been accepted at [facility]; transfer pending, but will need PEG tube placement prior. Critical care time 30 minutes spent reviewing charts, reviewing labs, reviewing imaging, discussion with RN. 05/24/2021: No acute events overnight. Afebrile. NG tube output has decreased. Kidney function appears stable. Continue IV antibiotics, per ID. Patient has been accepted to [facility], pending insurance authorization. Critical care time 30 minutes spent reviewing charts, reviewing labs, reviewing imaging, discussion with RN. 05/23/2021: Afebrile. On vent with FiO2 40%, PEEP 5. NG tube for 635 mL out overnight. Continue NG tube to suction. HD per nephrology. Continue IV antibiotics, per ID. Critical care time 30 minutes spent reviewing charts, reviewing labs, reviewing imaging, discussion with RN. 05/22/2021: Afebrile. On vent with FiO2 40%, PEEP 5. Continues to have excessive NG output. Continue NG tube to suction for now; PEG on hold for now. Continue hemodialysis, per nephrology. Continue IV antibiotics, per ID. Social work helping with discharge planning to [facility]ACH likely in the near future after PEG is placed. Critical care time 30 minutes spent reviewing charts, reviewing labs, reviewing imaging, discussion with RN. 05/21/2021: Afebrile, no acute events overnight. Remains on vent, FiO2 40%, PEEP 5. S/P tracheostomy on 05/15/2021. KUB on 05/19/2021 consistent with ileus. Per GI, continue NG tube to suction and parenteral nutrition for now. Continue IV antibiotics, per ID. Continue hemodialysis, per nephrology. Continue supportive care. Critical care time 30 minutes spent reviewing charts, reviewing imaging, reviewing labs, and discussed with RN. 05/20/21 Patient seen and examined at bedside. Again had multiple bouts of vomiting yesterday. GI continuing to follow for PEG evaluation although on hold right now due to persistent vomiting. Leukocytosis does persist but patient afebrile. Plan of care discussed with bedside RN 05/19/21 Patient seen and examined at bedside. Apparently had a fair bit of vomiting overnight. GI following for PEG evaluation. Otherwise patient remained stable. Plan of care discussed with bedside nurse. 05/18/21 Patient seen and examined at bedside. Attempting to increase tube feeds, GI consulted for PEG evaluation. Otherwise no major clinical changes. Continue to wean sedation. Plan of care discussed with bedside nurse. 05/17/21 Patient seen and examined at bedside. Attempting to wean sedation. Patient with some diarrhea. Per infectious disease will give erythromycin eye ointment for eye lesions. Nephro and pulm also following. Continue sedation weaning, plan of care discussed with bedside nurse. 05/16/21 Patient seen and examined at bedside. Underwent tracheostomy yesterday today tolerated well. When seen this morning patient is still notably sedated respiratory status is stable. Continue antibiotics and supportive measures. Plan of care discussed with bedside nurse. Attempt to wean sedation. 05/15/21 Patient seen and examined at bedside Remains intubated and sedated planning for tracheostomy today Continue current respiratory support; continue antibiotics, continue sedation Follow recommendations of pulmonary, renal, and infectious disease Plan of care discussed with bedside nurse Will follow up with patient after surgery today 05/14/21 Patient seen and examined at bedside Remains intubated and sedated planning for tracheostomy tomorrow Continue current respiratory support; continue antibiotics, continue sedation Follow recommendations of pulmonary, renal, and infectious disease Plan of care discussed with bedside nurse 05/13/2021 did not tolerate sedation vacation 05/11/2021, profoundly hypertensive ABG/CXR--changes as needed Continue iv cefepime , add zyvox, sputum culture VENT [id number]%, 5 of PEEP Mild pulmonary edema with new small right pleural effusion and basilar opacities now on cardene gtt prn Patient seen and examined in the [facility] [address] ICU remains mechanically ventilated ILDA on CKD - ATN 2/2 sepsis/ Hypotension,UOP good,on IV Lasix ; requiring dialysis, Sedated with propofol Dex and fentanyl Chart reviewed Discussed with RN He remains critically ill intubated/sedated cont cardene gtt not able to tolerate PS trial 05/06/21 Change central line and send cath tip for cultures. 05-09 C. difficile PCR ADELSO AVILA MD ORDERED: BCULT Procedure Result BLOOD CULTURE Final NO GROWTH AFTER 5 DAYS JONES FISHMAN MD, CHRISTOPHER S MD BLOOD CULTURE Preliminary NO GROWTH AFTER 4 DAYS 37 min cc time 05/12/2021 Continue iv cefepime , add zyvox, sputum culture VENT [id number]%, 5 of PEEP Mild pulmonary edema with new small right pleural effusion and basilar opacities now on cardene gtt prn Patient seen and examined in the [place] [address] ICU remains mechanically ventilated ILDA on CKD - ATN 2/2 sepsis/ Hypotension,UOP good,on IV Lasix ; requiring dialysis, Sedated with propofol Dex and fentanyl Chart reviewed Discussed with RN He remains critically ill intubated/sedated cont cardene gtt not able to tolerate PS trial 05/06/21 Change central line and send cath tip for cultures. 05-09 C. difficile PCR JONES FISHMAN MD, CHRISTOPHER S MD SISILLO, SABATO MD ORDERED: BCULT -- Procedure Result BLOOD CULTURE Preliminary NO GROWTH AFTER 2 DAYS BLOOD CULTURE Preliminary NO GROWTH AFTER 4 DAYS 33 min cc time 05/11/2021 Continue iv cefepime , add zyvox, sputum culture VENT [id number]%, 5 of PEEP Mild pulmonary edema with new small right pleural effusion and basilar opacities now on cardene gtt prn Patient seen and examined in the [facility] remains mechanically ventilated ILDA on CKD - ATN 2/2 sepsis/ Hypotension,UOP good,on IV Lasix ; requiring dialysis, Sedated with propofol Dex and fentanyl Chart reviewed Discussed with RN He remains critically ill intubated/sedated cont cardene gtt not able to tolerate PS trial 05/06/21 Change central line and send cath tip for cultures. 05-09 C. difficile PCR FISHMAN,BRIAN APARICIO MD, MD, SABATO MD ORDERED: BCULT Procedure Result BLOOD CULTURE Preliminary NO GROWTH AFTER 2 DAYS - BLOOD CULTURE Preliminary NO GROWTH AFTER 4 DAYS 36 min cc time 05/10/2021 VENT [id number]%, 5 of PEEP Mild pulmonary edema with new small right pleural effusion and basilar opacities now on cardene gtt prn Patient seen and examined in the [facility] [address] ICU remains mechanically ventilated ILDA on CKD - ATN 2/2 sepsis/ Hypotension,UOP good,on IV Lasix ; requiring dialysis, Sedated with propofol Dex and fentanyl Chart reviewed Discussed with RN He remains critically ill intubated/sedated cont cardene gtt not able to tolerate PS trial 05/06/21 Change central line and send cath tip for cultures. 05-09 C. difficile PCR JONES FISHMAN MD,ADELSO DASILVA MD, MD ORDERED: BCULT Procedure Result BLOOD CULTURE Preliminary NO GROWTH AFTER 2 DAYS BLOOD CULTURE Preliminary NO GROWTH AFTER 4 DAYS 33 min cc time 05/09/2021 VENT [id number]%, 5 of PEEP Mild pulmonary edema with new small right pleural effusion and basilar opacities now on cardene gtt prn Patient seen and examined in the [facility] [address] ICU remains mechanically ventilated ILDA on CKD - ATN 2/2 sepsis/ Hypotension,UOP good,on IV Lasix ; requiring dialysis, Sedated with propofol Dex and fentanyl Chart reviewed Discussed with RN He remains critically ill intubated/sedated cont cardene gtt not able to tolerate PS trial 05/06/21 Change central line and send cath tip for cultures. 05-09 C. difficile PCR JONES FISHMAN MD,ADELSO DASILVA MD, MD ORDERED: BCULT Procedure Result BLOOD CULTURE Preliminary NO GROWTH AFTER 2 DAYS BLOOD CULTURE Preliminary NO GROWTH AFTER 4 DAYS 37 min cc time 05/08/2021 Currently on 40%, 5 of PEEP now on cardene gtt Patient seen and examined in the [facility] ICU remains mechanically ventilated ILDA on CKD - ATN 2/2 sepsis/ Hypotension,UOP good,on IV Lasix ; requiring dialysis, AC/20/500/40 percent with 5 of PEEP Sedated with propofol Dex and fentanyl Chart reviewed Discussed with RN He remains critically ill intubated/sedated cont cardene gtt not able to tolerate PS trial 05/06/21 JONES FISHMAN MD,ADELSO DASILVA MD, MD ORDERED: BCULT Procedure Result BLOOD CULTURE Preliminary NO GROWTH AFTER 2 DAYS BLOOD CULTURE Preliminary NO GROWTH AFTER 4 DAYS 33 min cc time 05/07/2021 Patient seen and examined in the [facility] [address] ICU He remains mechanically ventilated ILDA on CKD - ATN 2/ sepsis/ Hypotension,UOP good,on IV Lasix ; requiring dialysis, AC/20/500/40 percent with 5 of PEEP Sedated with propofol Dex and fentanyl Chart reviewed Discussed with RN He remains critically ill intubated/sedated cont cardene gtt not able to tolerate PS trial 05/06/21 JONES FISHMAN MD,ADELSO DASILVA MD, MD ORDERED: BCULT Procedure Result BLOOD CULTURE Preliminary NO GROWTH AFTER 2 DAYS 36 min cc time 05/06/2021 Patient seen and examined in the [facility] [address] ICU He remains mechanically ventilated AC/20/500/40 percent with 5 of PEEP Sedated with propofol Dex and fentanyl Chart reviewed Discussed with RN He remains critically ill 05/05/2020 Patient seen and examined in the [facility] [address] ICU He remains on the vent AC/20/500/40 percent with 5 of PEEP Discussed with RN Chart reviewed Has SCDs in place Nieves to bedside drainage He remains critically ill 05/04/2021 Patient seen and examined in the [facility] [address] ICU Still intubated Sedated with propofol and fentanyl AC/20/500/70 percent with 5 of PEEP On dialysis currently Has SCDs in Nieves to bedside drainage Discussed with RN Chart reviewed 05/03/2021 Patient seen and examined in the [facility] [address] ICU He is still intubated AC/20/500/70 percent with 5 of PEEP Has SCDs in place Nieves to bedside drainage Sedated with fentanyl Versed and propofol Discussed are Chart reviewed Remains critically ill 05/02/2021 Patient seen and examined in the [facility] [address] ICU He is sedated with propofol fentanyl and Versed Ventilator settings as follow AC/20/500/40 percent with 5 of PEEP Has Nieves to bedside drainage Chart reviewed Discussed with RN He remains critically ill 05/01/2021 Patient seen and examined in the [facility] [address] ICU He is still intubated AC/20/500/40 percent with 5 of PEEP In A. fib Sedated with propofol fentanyl and Versed Has a heparin drip Missy with RN Chart reviewed He remains critically 04/30/2020 Patient seen and examined in the [facility] [address] ICU He remains on the vent AC/20/500/40 5% with 5 PEEP Currently on dialysis Has OG feeds running Has a Nieves to bedside drainage Sedated with propofol and fentanyl Reviewed chart Discussed with RN He remains critically ill Mr Cunha is a 75 yo male w/ PMHx CAD, HTN, Hyperlipidemia, subclavian steel syndrome, subclavian stenosis s/p left subclavian sent placement complicated by retroperitoneal hematoma s/p evacuation in 08/2015), asthma, BART, CKD, DM2 who presented from home with home health care noted that he was short of breath and valverde with O2 saturations less than 89% as low as 84% not improved with nasal cannulated oxygen placed on CPAP and brought to ED for further care. He was just discharged from the hospital a week ago on April 19, 2021 for abdominal pain and was going for further cardiac testing with outpatient stress testing scheduled on May 28, 2021. Had echocardiogram April 17, 2021 with normal-appearing EF with moderate concentric LVH no significant valvular abnormalities. WBC 20, Hb 10.7, platelets 268, NA 140, K3.8, BUN 21, CR 2.9, glucose 162, albumin 3, troponin I 1.372, NT proBNP 33,318. EKG appears sinus tachycardia rate of 105 bpm with multiple PACs small ST depressions in lead II and V5. TWI in V6. Chest radiograph with diffuse interstitial and alveolar opacities and ET tube 5.8 cm above the leilani. Due to worsening respiratory status ED physician elected to intubate patient. Seen postintubation. Blood pressure little low after propofol bolus, but improved. Significant white frothy sputum per ET tube. Admitted to ICU for further care 04/29/2021: Afebrile, remains on vent at FiO2 45%, PEEP 5. WBC 20.4. Hemodialysis per nephrology. We will continue treatment with empiric antibiotics, remdesivir, and steroids. Continue heparin infusion and supportive care. Critical care time 30 minutes reviewing chart, review labs, review imaging, discussion with RN. 04/28/2021: Afebrile. FiO2 50%, PEEP 5. Nontunneled HD catheter placed yesterday due to worsening kidney function; eGFR 16 (CKD4). Chest x-ray showed unchanged interstitial opacities. Continue empiric antibiotics, steroids, and remdesivir. Continue heparin infusion, and continue to follow cardiology recommendations on new diagnosis of A. fib. Critical care time 30 minutes reviewing chart, review labs, review imaging, discussion with RN. 04/27/2021: Afebrile. On vent with FiO2 50%, PEEP 5. Troponin 2.8 yesterday; probable type II, demand ischemia. New onset A. fib. Continue heparin drip and as needed digoxin, per cardiology. Continue treatment with remdesivir, steroids, and prophylactic antibiotics. CBG 323 this morning; will add basal insulin. Critical care 30 minutes spent reviewing labs, reviewing imaging, reviewing charts, and discussion with RN. 04/26/2021: COVID-19 positive. Febrile overnight that was managed with cooling blankets. On vent with FiO2 50%, PEEP 5. Per cardiology, elevated troponins likely secondary to demand ischemia; continue heparin drip per cardiology. Maintain fluid balance and avoid nephrotoxins. Continue treatment with remdesivir, steroids, and prophylactic antibiotics. 30 minutes critical care time spent reviewing charts, reviewing labs, reviewing imaging, and discussion with RN. 04/25/2021: On vent FiO2 50, PEEP 5. Febrile, T-max 103.3. Patient was initiated on cooling blankets. Procalcitonin 0.13. Continue coverage for hospital-acquired pneumonia with cefepime. MRSA PCR pending. Critical care time 30 minutes spent reviewing charts, reviewing labs, review of imaging, discussion with RN. Vitals/I&O Vitals/I&O: Vital Signs Date Time Temp Pulse Resp B/P (MAP) Pulse Ox O2 Delivery O2 Flow Rate FiO2 05/25/21 07:15 53 16 133/60 (84) 100 Ventilator 05/25/21 06:32 10.0 05/25/21 00:15 97.6 97.6 I & O 05/24/21 05/24/21 05/25/21 15:00 23:00 07:00 Intake Total 1323.54 ml 1056 ml Output Total 215 ml 655 ml 365 ml Balance -215 ml 668.54 ml 691 ml Physical Exam Physical Exam: GENERAL: Well-developed and well-nourished male, sedated HEENT: Normocephalic, atraumatic, redness and erythema of both eyes improved, NG tube present NECK: right dialysis catheter present clean,central line changed ( 05/11) Trach + HEART: S1, S2. LUNGS: Decreased breath sounds. ABDOMEN: distended,hypoactive BS GENITOURINARY: Nieves in place. EXTREMITIES: Edema present. DERMATOLOGIC: Warm, dry, no generalized rash. NEUROLOGIC: Opens eyes PICC line clean General: No acute distress, Other (Answering some questions when awake) Heart: Regular rate, Normal S1, Normal S2 Lungs: Clear Abdomen: Normal bowel sounds, Other (ND) Extremities: No clubbing, No cyanosis, Other (Lower extremity edema) Skin: No rashes, No breakdown, No significant lesion Labs Labs: Laboratory Tests Test 05/24/21 08:30 05/24/21 12:26 05/24/21 17:56 05/24/21 21:33 White Blood Count 14.1 x10^3/uL (4.0-11.0) Red Blood Count 3.05 x10^6/uL (4.30-5.70) Hemoglobin 8.6 g/dL (13.0-17.5) Hematocrit 25.9 % (39.0-53.0) Mean Corpuscular Volume 85 fL (79-100) Mean Corpuscular Hemoglobin 28 pg (25-35) Mean Corpuscular Hemoglobin Concent 33 g/dL (31-37) Red Cell Distribution Width 17.0 % (11.5-14.5) Platelet Count 248 x10^3/uL (140-400) Neutrophils (%) (Auto) 63 % (31-73) Lymphocytes (%) (Auto) 21 % (24-48) Monocytes (%) (Auto) 11 % (0-9) Eosinophils (%) (Auto) 4 % (0-3) Basophils (%) (Auto) 1 % (0-3) Neutrophils # (Auto) 8.9 x10^3/uL (1.8-7.7) Lymphocytes # (Auto) 3.0 x10^3/uL (1.0-4.8) Monocytes # (Auto) 1.6 x10^3/uL (0.0-1.1) Eosinophils # (Auto) 0.6 x10^3/uL (0.0-0.7) Basophils # (Auto) 0.1 x10^3/uL (0.0-0.2) Segmented Neutrophils % 60 % (35-66) Band Neutrophils % 3 % (0-9) Lymphocytes % 23 % (24-48) Monocytes % 10 % (0-10) Eosinophils % 3 % (0-5) Myelocytes % 1 % (0-0) Nucleated Red Blood Cells 1 Platelet Estimate Adequate (ADEQUATE) Sodium Level 142 mmol/L (136-145) Potassium Level 3.6 mmol/L (3.5-5.1) Chloride Level 110 mmol/L (98-107) Carbon Dioxide Level 20 mmol/L (21-32) Anion Gap 12 (6-14) Blood Urea Nitrogen 37 mg/dL (8-26) Creatinine 2.5 mg/dL (0.7-1.3) Estimated GFR (Cockcroft-Gault) 30.7 BUN/Creatinine Ratio 15 (6-20) Glucose Level 276 mg/dL (70-99) Calcium Level 8.8 mg/dL (8.5-10.1) Total Bilirubin 0.4 mg/dL (0.2-1.0) Aspartate Amino Transf (AST/SGOT) 25 U/L (15-37) Alanine Aminotransferase (ALT/SGPT) 16 U/L (16-63) Alkaline Phosphatase 74 U/L (46-116) Total Protein 5.8 g/dL (6.4-8.2) Albumin 1.4 g/dL (3.4-5.0) Albumin/Globulin Ratio 0.3 (1.0-1.7) Glucose (Fingerstick) 234 mg/dL (70-99) 199 mg/dL (70-99) 236 mg/dL (70-99) Test 05/25/21 00:00 05/25/21 04:53 05/25/21 04:59 Glucose (Fingerstick) 225 mg/dL (70-99) 223 mg/dL (70-99) White Blood Count 14.9 x10^3/uL (4.0-11.0) Red Blood Count 2.72 x10^6/uL (4.30-5.70) Hemoglobin 7.3 g/dL (13.0-17.5) Hematocrit 22.9 % (39.0-53.0) Mean Corpuscular Volume 84 fL (79-100) Mean Corpuscular Hemoglobin 27 pg (25-35) Mean Corpuscular Hemoglobin Concent 32 g/dL (31-37) Red Cell Distribution Width 17.4 % (11.5-14.5) Platelet Count 274 x10^3/uL (140-400) Neutrophils (%) (Auto) 60 % (31-73) Lymphocytes (%) (Auto) 24 % (24-48) Monocytes (%) (Auto) 12 % (0-9) Eosinophils (%) (Auto) 4 % (0-3) Basophils (%) (Auto) 1 % (0-3) Neutrophils # (Auto) 8.9 x10^3/uL (1.8-7.7) Lymphocytes # (Auto) 3.6 x10^3/uL (1.0-4.8) Monocytes # (Auto) 1.8 x10^3/uL (0.0-1.1) Eosinophils # (Auto) 0.6 x10^3/uL (0.0-0.7) Basophils # (Auto) 0.1 x10^3/uL (0.0-0.2) Sodium Level 142 mmol/L (136-145) Potassium Level 3.8 mmol/L (3.5-5.1) Chloride Level 109 mmol/L (98-107) Carbon Dioxide Level 25 mmol/L (21-32) Anion Gap 8 (6-14) Blood Urea Nitrogen 27 mg/dL (8-26) Creatinine 1.9 mg/dL (0.7-1.3) Estimated GFR (Cockcroft-Gault) 42.1 Glucose Level 250 mg/dL (70-99) Calcium Level 8.5 mg/dL (8.5-10.1) Phosphorus Level 2.8 mg/dL (2.6-4.7) Magnesium Level 2.0 mg/dL (1.8-2.4) Assessment and Plan Assessmemt and Plan Problems Medical Problems: (1) Elevated troponin Status: Acute (2) Person under investigation for COVID-19 Status: Acute (3) Pulmonary edema Status: Acute Comment Review of Relevant I have reviewed the following items juanita (where applicable) has been applied. Medications: Current Medications Medications (Trade) Dose Ordered Sig/Jodie Route PRN Reason Start Time Stop Time Status Last Admin Dose Admin Sodium Chloride 90 meq/Potassium Chloride 50 meq/ Magnesium Sulfate 10 meq/Calcium Gluconate 5 meq/ Multivitamins 5 ml/Zinc/Copper/ Manganese/ Selenium 1 ml/ Total Parenteral Nutrition/Amino Acids/Dextrose/ Fat Emulsion Intravenous 1,080 ml @ 45 mls/hr TPN CONT IV 05/24/21 22:00 05/25/21 21:59 05/24/21 21:38 Midazolam HCl (Versed) 5 mg 1X ONCE IV 05/24/21 15:15 05/24/21 15:16 DC 05/24/21 15:20 Justifications for Admission General Conditions Altered mental status?: Yes Justification of admission: Patient has tachycardia (> 100 beats per minute) or hypotension (SBP < 90 mm Hg) leading to inadequate systemic perfusion as indicated by severe/persistent altered mental status. Other Justification ILDA SARAH BETH CARRASCO MD May 25, 2021 07:33
[2021-05-25] MEDS: PANTOPRAZOLE IV PUSH 40 MG VIAL. IVP SCH (07:41)
[2021-05-25] MEDS: ASPIRIN CHEWABLE 81 MG TABLET. PO SCH ×2 (07:41→08:00)
[2021-05-25] MEDS: MEROPENEM 500 MG in IV NORMAL SALINE 50ML 50 ML IV SCH (07:42)
[2021-05-25] MEDS: NYSTATIN TOPICAL POWDER 15GM BOTTLE. TP SCH ×2 (07:42→20:57)
[2021-05-25] MEDS: ERYTHROMYCIN 0.5% OPHTH OINTMENT 1GM TUBE. OU SCH (07:43)
[2021-05-25] MEDS: LABETALOL 20 MG/4 ML DISP.SYRIN. IVP PRN ×2 (09:22→14:34)
--- NOTE | 2021-05-25 09:38 | PDOC ---
PULMONARY PROGRESS NOTES DATE: 05/25/21 TIME: 09:36 Subjective currently on PS 10/5,40%. Patient had pressure support all day yesterday. Blood pressure difficult to control during CPAP trials. On multiple anti hypertensive medications. RN reports decreased urine output yesterday. Patient required dialysis Gastric tube reduced drainage overnight Afebrile Does not tolerate reducing sedation, has tachycardia/arrhythmia Vitals Vital Signs Date Time Temp Pulse Resp B/P (MAP) Pulse Ox O2 Delivery O2 Flow Rate FiO2 05/25/21 09:22 107 193/91 05/25/21 08:29 99 Ventilator 05/25/21 07:15 16 05/25/21 06:32 10.0 05/25/21 00:15 97.6 97.6 Comments Awake and follows some commands. No obvious respiratory distress HEENT: Other (Trachea midline) Lungs: Clear Cardiovascular: S1, S2 Abdomen: Soft Extremities: No Edema Labs Laboratory Tests Test 05/23/21 13:29 05/23/21 16:47 05/24/21 00:31 05/24/21 06:10 Glucose (Fingerstick) 177 mg/dL (70-99) 229 mg/dL (70-99) 233 mg/dL (70-99) Sodium Level 139 mmol/L (136-145) Potassium Level 3.5 mmol/L (3.5-5.1) Chloride Level 108 mmol/L (98-107) Carbon Dioxide Level 23 mmol/L (21-32) Anion Gap 8 (6-14) Blood Urea Nitrogen 37 mg/dL (8-26) Creatinine 2.7 mg/dL (0.7-1.3) Estimated GFR (Cockcroft-Gault) 28.1 Glucose Level 270 mg/dL (70-99) Calcium Level 8.6 mg/dL (8.5-10.1) Phosphorus Level 4.2 mg/dL (2.6-4.7) Magnesium Level 2.1 mg/dL (1.8-2.4) Test 05/24/21 08:30 05/24/21 12:26 05/24/21 17:56 05/24/21 21:33 White Blood Count 14.1 x10^3/uL (4.0-11.0) Red Blood Count 3.05 x10^6/uL (4.30-5.70) Hemoglobin 8.6 g/dL (13.0-17.5) Hematocrit 25.9 % (39.0-53.0) Mean Corpuscular Volume 85 fL (79-100) Mean Corpuscular Hemoglobin 28 pg (25-35) Mean Corpuscular Hemoglobin Concent 33 g/dL (31-37) Red Cell Distribution Width 17.0 % (11.5-14.5) Platelet Count 248 x10^3/uL (140-400) Neutrophils (%) (Auto) 63 % (31-73) Lymphocytes (%) (Auto) 21 % (24-48) Monocytes (%) (Auto) 11 % (0-9) Eosinophils (%) (Auto) 4 % (0-3) Basophils (%) (Auto) 1 % (0-3) Neutrophils # (Auto) 8.9 x10^3/uL (1.8-7.7) Lymphocytes # (Auto) 3.0 x10^3/uL (1.0-4.8) Monocytes # (Auto) 1.6 x10^3/uL (0.0-1.1) Eosinophils # (Auto) 0.6 x10^3/uL (0.0-0.7) Basophils # (Auto) 0.1 x10^3/uL (0.0-0.2) Segmented Neutrophils % 60 % (35-66) Band Neutrophils % 3 % (0-9) Lymphocytes % 23 % (24-48) Monocytes % 10 % (0-10) Eosinophils % 3 % (0-5) Myelocytes % 1 % (0-0) Nucleated Red Blood Cells 1 Platelet Estimate Adequate (ADEQUATE) Sodium Level 142 mmol/L (136-145) Potassium Level 3.6 mmol/L (3.5-5.1) Chloride Level 110 mmol/L (98-107) Carbon Dioxide Level 20 mmol/L (21-32) Anion Gap 12 (6-14) Blood Urea Nitrogen 37 mg/dL (8-26) Creatinine 2.5 mg/dL (0.7-1.3) Estimated GFR (Cockcroft-Gault) 30.7 BUN/Creatinine Ratio 15 (6-20) Glucose Level 276 mg/dL (70-99) Calcium Level 8.8 mg/dL (8.5-10.1) Total Bilirubin 0.4 mg/dL (0.2-1.0) Aspartate Amino Transf (AST/SGOT) 25 U/L (15-37) Alanine Aminotransferase (ALT/SGPT) 16 U/L (16-63) Alkaline Phosphatase 74 U/L (46-116) Total Protein 5.8 g/dL (6.4-8.2) Albumin 1.4 g/dL (3.4-5.0) Albumin/Globulin Ratio 0.3 (1.0-1.7) Glucose (Fingerstick) 234 mg/dL (70-99) 199 mg/dL (70-99) 236 mg/dL (70-99) Test 05/25/21 00:00 05/25/21 04:53 05/25/21 04:59 Glucose (Fingerstick) 225 mg/dL (70-99) 223 mg/dL (70-99) White Blood Count 14.9 x10^3/uL (4.0-11.0) Red Blood Count 2.72 x10^6/uL (4.30-5.70) Hemoglobin 7.3 g/dL (13.0-17.5) Hematocrit 22.9 % (39.0-53.0) Mean Corpuscular Volume 84 fL (79-100) Mean Corpuscular Hemoglobin 27 pg (25-35) Mean Corpuscular Hemoglobin Concent 32 g/dL (31-37) Red Cell Distribution Width 17.4 % (11.5-14.5) Platelet Count 274 x10^3/uL (140-400) Neutrophils (%) (Auto) 60 % (31-73) Lymphocytes (%) (Auto) 24 % (24-48) Monocytes (%) (Auto) 12 % (0-9) Eosinophils (%) (Auto) 4 % (0-3) Basophils (%) (Auto) 1 % (0-3) Neutrophils # (Auto) 8.9 x10^3/uL (1.8-7.7) Lymphocytes # (Auto) 3.6 x10^3/uL (1.0-4.8) Monocytes # (Auto) 1.8 x10^3/uL (0.0-1.1) Eosinophils # (Auto) 0.6 x10^3/uL (0.0-0.7) Basophils # (Auto) 0.1 x10^3/uL (0.0-0.2) Sodium Level 142 mmol/L (136-145) Potassium Level 3.8 mmol/L (3.5-5.1) Chloride Level 109 mmol/L (98-107) Carbon Dioxide Level 25 mmol/L (21-32) Anion Gap 8 (6-14) Blood Urea Nitrogen 27 mg/dL (8-26) Creatinine 1.9 mg/dL (0.7-1.3) Estimated GFR (Cockcroft-Gault) 42.1 Glucose Level 250 mg/dL (70-99) Calcium Level 8.5 mg/dL (8.5-10.1) Phosphorus Level 2.8 mg/dL (2.6-4.7) Magnesium Level 2.0 mg/dL (1.8-2.4) Laboratory Tests Test 05/24/21 12:26 05/24/21 17:56 05/24/21 21:33 05/25/21 00:00 Glucose (Fingerstick) 234 mg/dL (70-99) 199 mg/dL (70-99) 236 mg/dL (70-99) 225 mg/dL (70-99) Test 05/25/21 04:53 05/25/21 04:59 Glucose (Fingerstick) 223 mg/dL (70-99) White Blood Count 14.9 x10^3/uL (4.0-11.0) Red Blood Count 2.72 x10^6/uL (4.30-5.70) Hemoglobin 7.3 g/dL (13.0-17.5) Hematocrit 22.9 % (39.0-53.0) Mean Corpuscular Volume 84 fL (79-100) Mean Corpuscular Hemoglobin 27 pg (25-35) Mean Corpuscular Hemoglobin Concent 32 g/dL (31-37) Red Cell Distribution Width 17.4 % (11.5-14.5) Platelet Count 274 x10^3/uL (140-400) Neutrophils (%) (Auto) 60 % (31-73) Lymphocytes (%) (Auto) 24 % (24-48) Monocytes (%) (Auto) 12 % (0-9) Eosinophils (%) (Auto) 4 % (0-3) Basophils (%) (Auto) 1 % (0-3) Neutrophils # (Auto) 8.9 x10^3/uL (1.8-7.7) Lymphocytes # (Auto) 3.6 x10^3/uL (1.0-4.8) Monocytes # (Auto) 1.8 x10^3/uL (0.0-1.1) Eosinophils # (Auto) 0.6 x10^3/uL (0.0-0.7) Basophils # (Auto) 0.1 x10^3/uL (0.0-0.2) Sodium Level 142 mmol/L (136-145) Potassium Level 3.8 mmol/L (3.5-5.1) Chloride Level 109 mmol/L (98-107) Carbon Dioxide Level 25 mmol/L (21-32) Anion Gap 8 (6-14) Blood Urea Nitrogen 27 mg/dL (8-26) Creatinine 1.9 mg/dL (0.7-1.3) Estimated GFR (Cockcroft-Gault) 42.1 Glucose Level 250 mg/dL (70-99) Calcium Level 8.5 mg/dL (8.5-10.1) Phosphorus Level 2.8 mg/dL (2.6-4.7) Magnesium Level 2.0 mg/dL (1.8-2.4) Medications Active Scripts Medications Dose Route/Sig Max Daily Dose Days Date Category Glyburide 2.5 Mg Tablet 1 Tab PO DAILY 04/19/21 Rx Polyethylene Glycol 3350 17 Gm Powd.pack 17 Gm PO DAILY 04/19/21 Rx Dok (Docusate Sodium) 100 Mg Capsule 100 Mg PO PRN DAILY PRN 04/19/21 Rx Bisacodyl 5 Mg Tablet.dr 5 Mg PO PRN DAILY PRN 04/19/21 Rx Acetaminophen 325 Mg Tablet 650 Mg PO PRN Q4HRS PRN 04/19/21 Rx Aspirin Ec (Aspirin) 81 Mg Tablet.dr 81 Mg PO DAILYWBKFT 04/19/21 Rx Hydralazine Hcl 25 Mg Tablet 25 Mg PO QID 04/19/21 Rx Fenofibrate 54 Mg Tablet 1 Tab PO DAILY 04/17/21 Reported Potassium Chloride (Potassium Chloride) 20 Meq Tablet.er 20 Meq PO DAILY 04/17/21 Reported Coreg (Carvedilol) 12.5 Mg Tablet 37.5 Mg PO BIDWMEALS 04/17/21 Reported Rosuvastatin Calcium 40 Mg Tablet 40 Mg PO QHS 04/17/21 Reported Gabapentin (Gabapentin) 100 Mg Capsule 200 Mg PO BID 04/17/21 Reported Montelukast Sodium Tablet (Montelukast Sodium) 10 Mg Tablet 10 Mg PO HS 04/17/21 Reported Protonix (Pantoprazole Sodium) 20 Mg Tablet.dr 2 Tab PO DAILY 04/17/21 Reported Amlodipine Besylate 5 Mg Tablet 5 Mg PO DAILY 04/17/21 Reported Furosemide 40 Mg Tablet 1 Tab PO DAILY 04/17/21 Reported Proair Hfa Inhaler (Albuterol Sulfate) 8.5 Gm Hfa.aer.ad 2 Puff IH PRN Q4-6HRS PRN 21 04/16/21 Reported Advair 100-50 Diskus (Fluticasone/Salmeterol) 1 Each Disk.w.dev 1 Puff IH BID 04/16/21 Reported Comments Chest x-ray reviewed by me dated 05/23/2021. Minimal left basal effusion/atelectasis. Impression . IMPRESSION: 1. Acute hypoxic respiratory failure, multifactorial/COVID-19 viral pneumonia/ARDS, ongoing, intubated 04/25/2021, now status post tracheostomy 05/15/[address] chest with bilateral diffuse interstitial infiltrates without any significant pleural effusion 3. Leukocytosis, sepsis--improved 4. Non-ST segment elevation NC 5. History of tobacco use, suspect COPD, unknown FEV1 6. Chronic kidney disease.== HD on hold 7. Metabolic acidosis multifactorial 8. Abnormal chest x-ray 9. Hypoglycemia, continue to monitor--- resolved 10. Hypotension, suspect volume deficit,/possible sepsis--- resolved 11. Fever--improved 12. Anemia--improved 13. Atrial fibrillation with rapid ventricular response, currently rate controlled 14. Ileus Plan . Updated 05/25/21 Continue current vent support, currently on PS 10/5 40%, tolerating well, PS during the day as tolerated S/P trach 05/15/2021 unable to wean precedex 2/2 increased BP and HR Continue multi antihypertensive medications for control of blood pressure. Follow ABG/CXR--changes as needed Follow ID recs for ABX Follow GI recs--now with ileus, PEG tube on hold, ongoing gastric output og to LIS Follow nephrology recs-- HD on hold, last HD was 05/12/21. Urine output is decreasing. Have discussed with Dr. Ariza. He will consider dialyzing him again Follow Cardiology recs-- Continue TPN for nutritional support. Patient has ongoing ileus. DVT/GI PPX: sq heparin D/W RN and RT Pt. is DNR Updated 05/24/21 Continue current vent support, currently on PS 10/5 40%, tolerating well, PS during the day as tolerated S/P trach 05/15/2021 unable to wean precedex 2/2 increased BP and HR Continue multi antihypertensive medications for control of blood pressure. Follow ABG/CXR--changes as needed Follow ID recs for ABX Follow GI recs--now with ileus, PEG tube on hold, ongoing gastric output og to LIS Follow nephrology recs-- HD on hold, last HD was 05/12/21. Urine output is decreasing. Have discussed with Dr. Ariza. He will consider dialyzing him again Follow Cardiology recs-- Continue TPN for nutritional support. Patient has ongoing ileus. DVT/GI PPX: sq heparin D/W RN and RT Pt. is DNR Updated 05/23/21 Continue current vent support, currently on PS 10/5 40%, tolerating well, PS during the day as tolerated S/P trach 05/15/2021 unable to wean precedex 2/2 increased BP and HR Follow ABG/CXR--changes as needed Follow ID recs for ABX Follow GI recs--now with ileus, PEG tube on hold, ongoing gastric output og to LIS Follow nephrology recs-- HD on hold, last HD was 05/12/21 Follow Cardiology recs-- Continue TPN for nutritional support DVT/GI PPX: sq heparin D/W RN and RT Pt. is DNR cct 30 min JONES FISHMAN MD May 25, 2021 09:38
--- NOTE | 2021-05-25 09:48 | PDOC ---
Date of Service: DATE: 05/25/21 TIME: 09:45 Objective: Objective: ~100cc outpt from NGT since shift change. Vital Signs: Vital Signs Date Time Temp Pulse Resp B/P (MAP) Pulse Ox O2 Delivery O2 Flow Rate FiO2 05/25/21 09:39 99 Ventilator 05/25/21 09:30 64 18 151/69 (96) 05/25/21 08:00 97.0 97.0 05/25/21 06:32 10.0 Labs: Laboratory Tests Test 05/24/21 12:26 05/24/21 17:56 05/24/21 21:33 05/25/21 00:00 Glucose (Fingerstick) 234 mg/dL 199 mg/dL 236 mg/dL 225 mg/dL Test 05/25/21 04:53 05/25/21 04:59 Glucose (Fingerstick) 223 mg/dL White Blood Count 14.9 x10^3/uL Red Blood Count 2.72 x10^6/uL Hemoglobin 7.3 g/dL Hematocrit 22.9 % Mean Corpuscular Volume 84 fL Mean Corpuscular Hemoglobin 27 pg Mean Corpuscular Hemoglobin Concent 32 g/dL Red Cell Distribution Width 17.4 % Platelet Count 274 x10^3/uL Neutrophils (%) (Auto) 60 % Lymphocytes (%) (Auto) 24 % Monocytes (%) (Auto) 12 % Eosinophils (%) (Auto) 4 % Basophils (%) (Auto) 1 % Neutrophils # (Auto) 8.9 x10^3/uL Lymphocytes # (Auto) 3.6 x10^3/uL Monocytes # (Auto) 1.8 x10^3/uL Eosinophils # (Auto) 0.6 x10^3/uL Basophils # (Auto) 0.1 x10^3/uL Sodium Level 142 mmol/L Potassium Level 3.8 mmol/L Chloride Level 109 mmol/L Carbon Dioxide Level 25 mmol/L Anion Gap 8 Blood Urea Nitrogen 27 mg/dL Creatinine 1.9 mg/dL Estimated GFR (Cockcroft-Gault) 42.1 Glucose Level 250 mg/dL Calcium Level 8.5 mg/dL Phosphorus Level 2.8 mg/dL Magnesium Level 2.0 mg/dL PE: GEN: NAD LUNGS: trach/vent HEART: tachycardic ABD: large, some distention NEURO/PSYCH: eyes open A/P: COVID-19/resp failure Ileus - PEG on hold -- Continue interval x-ray, monitor NG output, continue TPN. Justicifation of Admission Dx: Justifications for Admission: Justification of Admission Dx: Yes Aspiration Pneumonia: Hemodynamic Instability TAIWO THEODORE May 25, 2021 09:48
--- NOTE | 2021-05-25 10:52 | PDOC ---
Renal-Progress Notes Subjective Notes Notes REMAINS ON THE VENT History of Present Illness Hx of present illness STABLE Vitals Vitals Vital Signs Date Time Temp Pulse Resp B/P (MAP) Pulse Ox O2 Delivery O2 Flow Rate FiO2 05/25/21 10:00 74 20 163/68 (99) 100 Ventilator 05/25/21 08:00 97.0 97.0 05/25/21 06:32 10.0 Weight Weight [ ] I.O. Intake and Output Intake and Output 05/25/21 07:00 Intake Total 2379.54 ml Output Total 1235 ml Balance 1144.54 ml IV Total 2223.54 ml Other 156 ml Output Urine Total 985 ml Gastric Drainage Total 100 ml Drainage Total 150 ml Labs Labs Laboratory Tests Test 05/24/21 12:26 05/24/21 17:56 05/24/21 21:33 05/25/21 00:00 Glucose (Fingerstick) 234 mg/dL (70-99) 199 mg/dL (70-99) 236 mg/dL (70-99) 225 mg/dL (70-99) Test 05/25/21 04:53 05/25/21 04:59 Glucose (Fingerstick) 223 mg/dL (70-99) White Blood Count 14.9 x10^3/uL (4.0-11.0) Red Blood Count 2.72 x10^6/uL (4.30-5.70) Hemoglobin 7.3 g/dL (13.0-17.5) Hematocrit 22.9 % (39.0-53.0) Mean Corpuscular Volume 84 fL (79-100) Mean Corpuscular Hemoglobin 27 pg (25-35) Mean Corpuscular Hemoglobin Concent 32 g/dL (31-37) Red Cell Distribution Width 17.4 % (11.5-14.5) Platelet Count 274 x10^3/uL (140-400) Neutrophils (%) (Auto) 60 % (31-73) Lymphocytes (%) (Auto) 24 % (24-48) Monocytes (%) (Auto) 12 % (0-9) Eosinophils (%) (Auto) 4 % (0-3) Basophils (%) (Auto) 1 % (0-3) Neutrophils # (Auto) 8.9 x10^3/uL (1.8-7.7) Lymphocytes # (Auto) 3.6 x10^3/uL (1.0-4.8) Monocytes # (Auto) 1.8 x10^3/uL (0.0-1.1) Eosinophils # (Auto) 0.6 x10^3/uL (0.0-0.7) Basophils # (Auto) 0.1 x10^3/uL (0.0-0.2) Sodium Level 142 mmol/L (136-145) Potassium Level 3.8 mmol/L (3.5-5.1) Chloride Level 109 mmol/L (98-107) Carbon Dioxide Level 25 mmol/L (21-32) Anion Gap 8 (6-14) Blood Urea Nitrogen 27 mg/dL (8-26) Creatinine 1.9 mg/dL (0.7-1.3) Estimated GFR (Cockcroft-Gault) 42.1 Glucose Level 250 mg/dL (70-99) Calcium Level 8.5 mg/dL (8.5-10.1) Phosphorus Level 2.8 mg/dL (2.6-4.7) Magnesium Level 2.0 mg/dL (1.8-2.4) Micro Micro Microbiology 05/11/21 Gram Stain Evaluation - Final, Complete 05/11/21 Respiratory Culture - Final, Complete 05/04/21 Gram Stain - Final, Complete 05/04/21 Aerobic Culture - Final, Complete 05/04/21 Blood Culture - Final, Complete NO GROWTH AFTER 5 DAYS Review of Systems Constitutional: yes: unresponsive, other Physical Exam General Appearance: no apparent distress, other (ON THE VENT) Skin: warm, dry, edema Respiratory: decreased breath sounds Heart: S1S2 Abdomen: soft, N/T, distension, other (HYPOACTIVE) Genitourinary: bladder flat, mooney catheter Extremities: pulses present, edema Neurology: other (sedated) Musculoskeletal: Other Assessment Assessment IMP HYPONATREMIA-RESOLVED HYPOKALEMIA LOW MAG-CORRECTED [id number] UO CKD - SUSPECT STAGE 3 ACUTE HYPOXIC RESP FAILURE COVID 19 PNEUMONIA MET ACIDOSIS-BETTER LEUCOCYTOSIS ANEMIA S/P TRACH ANASARCA ILEUS PLAN REPLACE ELECTROLYTES REMAINS CRITICALLY ILL VENT SUPPORT-FIO2 OF 40% NUTRITION-TPN PROB NEEDS PEG AT SOME POINT PRESSORS NEEDED HD AGAIN TODAY DUE TO LOW UO NOT RESPONDING TO DIURETICS OR FLUID CHALLENGE UF ABOUT 3.0-4.0 LITERS RESUME TF WHEN FEASIBLE LTAC TRANSFER PENDING [facility] WANTS PEG PRIOR TO TRANSFER D/W DR FISHMAN WILL FOLLOW JEANINE NEWTON MD May 25, 2021 10:51
--- NOTE | 2021-05-25 11:54 | PDOC ---
Infectious Disease Note Subjective: Subjective Pt remains vent dependent On weaning trial afebrile d/W nursing staff Vital Signs: Vital Signs Vital Signs Date Time Temp Pulse Resp B/P (MAP) Pulse Ox O2 Delivery O2 Flow Rate FiO2 05/25/21 11:26 95 176/75 05/25/21 11:20 98 Tracheal Collar 05/25/21 10:00 20 05/25/21 08:00 97.0 97.0 05/25/21 06:32 10.0 Physical Exam: PHYSICAL EXAM GENERAL: Well-developed and well-nourished male, sedated HEENT: Normocephalic, atraumatic, redness and erythema of both eyes improved, NG tube present NECK: right dialysis catheter present clean,central line changed ( 05/11) Trach + HEART: S1, S2. LUNGS: Decreased breath sounds. ABDOMEN: distended,hypoactive BS GENITOURINARY: Nieves in place. EXTREMITIES: Edema present. DERMATOLOGIC: Warm, dry, no generalized rash. NEUROLOGIC: Opens eyes PICC line clean Medications: Inpatient Meds: Medications reviewed. Labs: Lab Laboratory Tests Test 05/24/21 12:26 05/24/21 17:56 05/24/21 21:33 05/25/21 00:00 Glucose (Fingerstick) 234 mg/dL (70-99) 199 mg/dL (70-99) 236 mg/dL (70-99) 225 mg/dL (70-99) Test 05/25/21 04:53 05/25/21 04:59 05/25/21 11:31 Glucose (Fingerstick) 223 mg/dL (70-99) 230 mg/dL (70-99) White Blood Count 14.9 x10^3/uL (4.0-11.0) Red Blood Count 2.72 x10^6/uL (4.30-5.70) Hemoglobin 7.3 g/dL (13.0-17.5) Hematocrit 22.9 % (39.0-53.0) Mean Corpuscular Volume 84 fL (79-100) Mean Corpuscular Hemoglobin 27 pg (25-35) Mean Corpuscular Hemoglobin Concent 32 g/dL (31-37) Red Cell Distribution Width 17.4 % (11.5-14.5) Platelet Count 274 x10^3/uL (140-400) Neutrophils (%) (Auto) 60 % (31-73) Lymphocytes (%) (Auto) 24 % (24-48) Monocytes (%) (Auto) 12 % (0-9) Eosinophils (%) (Auto) 4 % (0-3) Basophils (%) (Auto) 1 % (0-3) Neutrophils # (Auto) 8.9 x10^3/uL (1.8-7.7) Lymphocytes # (Auto) 3.6 x10^3/uL (1.0-4.8) Monocytes # (Auto) 1.8 x10^3/uL (0.0-1.1) Eosinophils # (Auto) 0.6 x10^3/uL (0.0-0.7) Basophils # (Auto) 0.1 x10^3/uL (0.0-0.2) Sodium Level 142 mmol/L (136-145) Potassium Level 3.8 mmol/L (3.5-5.1) Chloride Level 109 mmol/L (98-107) Carbon Dioxide Level 25 mmol/L (21-32) Anion Gap 8 (6-14) Blood Urea Nitrogen 27 mg/dL (8-26) Creatinine 1.9 mg/dL (0.7-1.3) Estimated GFR (Cockcroft-Gault) 42.1 Glucose Level 250 mg/dL (70-99) Calcium Level 8.5 mg/dL (8.5-10.1) Phosphorus Level 2.8 mg/dL (2.6-4.7) Magnesium Level 2.0 mg/dL (1.8-2.4) Objective: Assessment: 1. Febrile illness improved 2. Leukocytosis, was on steroids,ileus could contribute 3. COVID-19 pneumonia. 4. Acute hypoxic respiratory failure status post intubation.Now S/P Trach 05/15 5. Congestive heart failure, acute on chronic. 6. Acute kidney injury on chronic kidney disease on hemodialysis. 7. Diabetes mellitus 2. 8. Atrial fibrillation. 9. Anemia. 10. Protein-calorie malnutrition. 11. Hypertention 12.Hyponatremia 13. Ileus, Bowel obstruction Peg TF on hold, OG to LIS 14.on PPN 15.Mild to Moderate Pleural effusion 16.Lt eye conjunctivitis improved Plan: Plan of Care 1. DC meropenem Cultures negative 2. Follow-up labs and cultures. 3. Central line changed on 05/11,C. difficile PCR negative 4. Continue supportive care. 5 Critically ill. 6. DC Erythromycin ointment,cont local eye care WBC remains elevated though trend has improved, could be reactive from underlying ileus Discussed with nursing staff ALAYNA RIVERO MD May 25, 2021 11:54
--- NOTE | 2021-05-25 15:55 | NUR ---
SS following up with discharge planning. SS reviewed pt chart and discussed with pt RN. Pt is currently on trach shield at 35%. COVID19 recovered. NG in place. TPN. Currently awaiting ileus to resolve. Pt on Fentanyl and Precedex. Pt accepted at [facility], ; fax [phone], pending insurance approval. Per [facility], ilieus needs to be improved and pt needs to be on less FI02 prior to authorizing. SS will continue to follow for discharge planning.
[2021-05-25] MEDS: ATORVASTATIN CALCIUM 40 MG TABLET. PO SCH (20:54)
[2021-05-25] MEDS: MONTELUKAST SODIUM 10 MG TABLET. PO SCH (20:55)
[2021-05-25] MEDS: INSULIN GLARGINE SYRINGE. SQ SCH (20:56)
[2021-05-25] MEDS ORDERED: [UNRECOGNIZED DRUG - OTHER] IV SCH (22:00)
[2021-05-25] MEDS ORDERED: TOTAL PARENTERAL NUTRITION IV SCH (22:00)
[2021-05-25] MEDS ORDERED: DEXTROSE 70% IV SCH (22:00)
[2021-05-25] MEDS ORDERED: AMINO ACID IV SCH (22:00)
[2021-05-26] VITALS (30 sets, daily range): BP systolic 95–233; BP diastolic 45–107
[2021-05-26] MEDS: METOPROLOL IV PUSH 5 MG/5 ML VIAL. IVP SCH ×5 (00:13→23:51)
[2021-05-26] MEDS: INSULIN LISPRO 300 UNITS/3 ML VIAL. SQ SCH ×5 (00:14→23:52)
[2021-05-26] MEDS: DEXMEDETOMIDINE 400 MCG in IV NORMAL SALINE 100ML 96 ML IV PRN ×7 (02:24→23:51)
[2021-05-26] MEDS: hydrALAZINE 20 MG/ML VIAL. IVP PRN (03:16)
--- NOTE | 2021-05-26 05:45 | PDOC ---
PULMONARY PROGRESS NOTES DATE: 05/26/21 TIME: 05:45 Subjective currently on PS 10/5,40%. Patient had pressure support yesterday agitated/tachypnea/tachycardia w decreasing sedation on precedex fentanyl Blood pressure difficult to control during CPAP trials. On multiple antihypertensive medications. s/p dialysis Afebrile Vitals Vital Signs Date Time Temp Pulse Resp B/P (MAP) Pulse Ox O2 Delivery O2 Flow Rate FiO2 05/26/21 05:00 100 Ventilator 05/26/21 03:16 76 233/107 05/26/21 03:10 19 05/26/21 00:00 99.1 99.1 05/25/21 16:00 8.0 HEENT: Other (Trachea midline) Lungs: Crackles Cardiovascular: S1, S2 Abdomen: Soft Extremities: No Edema Skin: Warm Labs Laboratory Tests Test 05/24/21 06:10 05/24/21 08:30 05/24/21 12:26 05/24/21 17:56 Sodium Level 139 mmol/L (136-145) 142 mmol/L (136-145) Potassium Level 3.5 mmol/L (3.5-5.1) 3.6 mmol/L (3.5-5.1) Chloride Level 108 mmol/L (98-107) 110 mmol/L (98-107) Carbon Dioxide Level 23 mmol/L (21-32) 20 mmol/L (21-32) Anion Gap 8 (6-14) 12 (6-14) Blood Urea Nitrogen 37 mg/dL (8-26) 37 mg/dL (8-26) Creatinine 2.7 mg/dL (0.7-1.3) 2.5 mg/dL (0.7-1.3) Estimated GFR (Cockcroft-Gault) 28.1 30.7 Glucose Level 270 mg/dL (70-99) 276 mg/dL (70-99) Calcium Level 8.6 mg/dL (8.5-10.1) 8.8 mg/dL (8.5-10.1) Phosphorus Level 4.2 mg/dL (2.6-4.7) Magnesium Level 2.1 mg/dL (1.8-2.4) White Blood Count 14.1 x10^3/uL (4.0-11.0) Red Blood Count 3.05 x10^6/uL (4.30-5.70) Hemoglobin 8.6 g/dL (13.0-17.5) Hematocrit 25.9 % (39.0-53.0) Mean Corpuscular Volume 85 fL (79-100) Mean Corpuscular Hemoglobin 28 pg (25-35) Mean Corpuscular Hemoglobin Concent 33 g/dL (31-37) Red Cell Distribution Width 17.0 % (11.5-14.5) Platelet Count 248 x10^3/uL (140-400) Neutrophils (%) (Auto) 63 % (31-73) Lymphocytes (%) (Auto) 21 % (24-48) Monocytes (%) (Auto) 11 % (0-9) Eosinophils (%) (Auto) 4 % (0-3) Basophils (%) (Auto) 1 % (0-3) Neutrophils # (Auto) 8.9 x10^3/uL (1.8-7.7) Lymphocytes # (Auto) 3.0 x10^3/uL (1.0-4.8) Monocytes # (Auto) 1.6 x10^3/uL (0.0-1.1) Eosinophils # (Auto) 0.6 x10^3/uL (0.0-0.7) Basophils # (Auto) 0.1 x10^3/uL (0.0-0.2) Segmented Neutrophils % 60 % (35-66) Band Neutrophils % 3 % (0-9) Lymphocytes % 23 % (24-48) Monocytes % 10 % (0-10) Eosinophils % 3 % (0-5) Myelocytes % 1 % (0-0) Nucleated Red Blood Cells 1 Platelet Estimate Adequate (ADEQUATE) BUN/Creatinine Ratio 15 (6-20) Total Bilirubin 0.4 mg/dL (0.2-1.0) Aspartate Amino Transf (AST/SGOT) 25 U/L (15-37) Alanine Aminotransferase (ALT/SGPT) 16 U/L (16-63) Alkaline Phosphatase 74 U/L (46-116) Total Protein 5.8 g/dL (6.4-8.2) Albumin 1.4 g/dL (3.4-5.0) Albumin/Globulin Ratio 0.3 (1.0-1.7) Glucose (Fingerstick) 234 mg/dL (70-99) 199 mg/dL (70-99) Test 05/24/21 21:33 05/25/21 00:00 05/25/21 04:53 05/25/21 04:59 Glucose (Fingerstick) 236 mg/dL (70-99) 225 mg/dL (70-99) 223 mg/dL (70-99) White Blood Count 14.9 x10^3/uL (4.0-11.0) Red Blood Count 2.72 x10^6/uL (4.30-5.70) Hemoglobin 7.3 g/dL (13.0-17.5) Hematocrit 22.9 % (39.0-53.0) Mean Corpuscular Volume 84 fL (79-100) Mean Corpuscular Hemoglobin 27 pg (25-35) Mean Corpuscular Hemoglobin Concent 32 g/dL (31-37) Red Cell Distribution Width 17.4 % (11.5-14.5) Platelet Count 274 x10^3/uL (140-400) Neutrophils (%) (Auto) 60 % (31-73) Lymphocytes (%) (Auto) 24 % (24-48) Monocytes (%) (Auto) 12 % (0-9) Eosinophils (%) (Auto) 4 % (0-3) Basophils (%) (Auto) 1 % (0-3) Neutrophils # (Auto) 8.9 x10^3/uL (1.8-7.7) Lymphocytes # (Auto) 3.6 x10^3/uL (1.0-4.8) Monocytes # (Auto) 1.8 x10^3/uL (0.0-1.1) Eosinophils # (Auto) 0.6 x10^3/uL (0.0-0.7) Basophils # (Auto) 0.1 x10^3/uL (0.0-0.2) Sodium Level 142 mmol/L (136-145) Potassium Level 3.8 mmol/L (3.5-5.1) Chloride Level 109 mmol/L (98-107) Carbon Dioxide Level 25 mmol/L (21-32) Anion Gap 8 (6-14) Blood Urea Nitrogen 27 mg/dL (8-26) Creatinine 1.9 mg/dL (0.7-1.3) Estimated GFR (Cockcroft-Gault) 42.1 Glucose Level 250 mg/dL (70-99) Calcium Level 8.5 mg/dL (8.5-10.1) Phosphorus Level 2.8 mg/dL (2.6-4.7) Magnesium Level 2.0 mg/dL (1.8-2.4) Test 05/25/21 11:31 05/25/21 18:04 05/26/21 00:11 Glucose (Fingerstick) 230 mg/dL (70-99) 161 mg/dL (70-99) 175 mg/dL (70-99) Laboratory Tests Test 05/25/21 11:31 05/25/21 18:04 05/26/21 00:11 Glucose (Fingerstick) 230 mg/dL (70-99) 161 mg/dL (70-99) 175 mg/dL (70-99) Medications Active Scripts Medications Dose Route/Sig Max Daily Dose Days Date Category Glyburide 2.5 Mg Tablet 1 Tab PO DAILY 04/19/21 Rx Polyethylene Glycol 3350 17 Gm Powd.pack 17 Gm PO DAILY 04/19/21 Rx Dok (Docusate Sodium) 100 Mg Capsule 100 Mg PO PRN DAILY PRN 04/19/21 Rx Bisacodyl 5 Mg Tablet.dr 5 Mg PO PRN DAILY PRN 04/19/21 Rx Acetaminophen 325 Mg Tablet 650 Mg PO PRN Q4HRS PRN 04/19/21 Rx Aspirin Ec (Aspirin) 81 Mg Tablet.dr 81 Mg PO DAILYWBKFT 04/19/21 Rx Hydralazine Hcl 25 Mg Tablet 25 Mg PO QID 04/19/21 Rx Fenofibrate 54 Mg Tablet 1 Tab PO DAILY 04/17/21 Reported Potassium Chloride (Potassium Chloride) 20 Meq Tablet.er 20 Meq PO DAILY 04/17/21 Reported Coreg (Carvedilol) 12.5 Mg Tablet 37.5 Mg PO BIDWMEALS 04/17/21 Reported Rosuvastatin Calcium 40 Mg Tablet 40 Mg PO QHS 04/17/21 Reported Gabapentin (Gabapentin) 100 Mg Capsule 200 Mg PO BID 04/17/21 Reported Montelukast Sodium Tablet (Montelukast Sodium) 10 Mg Tablet 10 Mg PO HS 04/17/21 Reported Protonix (Pantoprazole Sodium) 20 Mg Tablet.dr 2 Tab PO DAILY 04/17/21 Reported Amlodipine Besylate 5 Mg Tablet 5 Mg PO DAILY 04/17/21 Reported Furosemide 40 Mg Tablet 1 Tab PO DAILY 04/17/21 Reported Proair Hfa Inhaler (Albuterol Sulfate) 8.5 Gm Hfa.aer.ad 2 Puff IH PRN Q4-6HRS PRN 21 04/16/21 Reported Advair 100-50 Diskus (Fluticasone/Salmeterol) 1 Each Disk.w.dev 1 Puff IH BID 04/16/21 Reported Comments Chest x-ray reviewed by me dated 05/23/2021. Minimal left basal effusion/atelectasis. Impression . IMPRESSION: 1. Acute hypoxic respiratory failure, multifactorial/COVID-19 viral pneumonia/ARDS, ongoing, intubated 04/25/2021, now status post tracheostomy 05/15/[address] chest with bilateral diffuse interstitial infiltrates without any significant pleural effusion 3. Leukocytosis, sepsis--improved 4. Non-ST segment elevation VT 5. History of tobacco use, suspect COPD, unknown FEV1 6. Chronic kidney disease.== HD on hold 7. Metabolic acidosis multifactorial 8. Abnormal chest x-ray 9. Hypoglycemia, continue to monitor--- resolved 10. Hypotension, suspect volume deficit,/possible sepsis--- resolved 11. Fever--improved 12. Anemia--improved 13. Atrial fibrillation with rapid ventricular response, currently rate controlled 14. Ileus Plan . Updated 05/26/21 Continue current vent support, currently on PS 10/5 40%, tolerating well, PS/weaning during the day as tolerated S/P trach 05/15/2021 decrease sedation as tolerated Continue multi antihypertensive medications for control of blood pressure. Follow ABG/CXR--changes as needed Follow ID recs for ABX Follow GI recs-- ileus, PEG tube on hold, Follow nephrology recs-- last HD was 05/12/21. Urine output is decreasing. hd today per nephro Follow Cardiology recs-- Continue TPN for nutritional support. Patient has ongoing ileus. DVT/GI PPX: sq heparin D/W RN and RT Pt. is DNR Updated 05/25/21 Continue current vent support, currently on PS 10/5 40%, tolerating well, PS during the day as tolerated S/P trach 05/15/2021 unable to wean precedex 2/2 increased BP and HR Continue multi antihypertensive medications for control of blood pressure. Follow ABG/CXR--changes as needed Follow ID recs for ABX Follow GI recs--now with ileus, PEG tube on hold, ongoing gastric output og to LIS Follow nephrology recs-- HD on hold, last HD was 05/12/21. Urine output is decreasing. Have discussed with Dr. Ariza. He will consider dialyzing him again Follow Cardiology recs-- Continue TPN for nutritional support. Patient has ongoing ileus. DVT/GI PPX: sq heparin D/W RN and RT Pt. is DNR Updated 05/24/21 Continue current vent support, currently on PS 10/5 40%, tolerating well, PS during the day as tolerated S/P trach 05/15/2021 unable to wean precedex 2/2 increased BP and HR Continue multi antihypertensive medications for control of blood pressure. Follow ABG/CXR--changes as needed Follow ID recs for ABX Follow GI recs--now with ileus, PEG tube on hold, ongoing gastric output og to LIS Follow nephrology recs-- HD on hold, last HD was 05/12/21. Urine output is decreasing. Have discussed with Dr. Ariza. He will consider dialyzing him again Follow Cardiology recs-- Continue TPN for nutritional support. Patient has ongoing ileus. DVT/GI PPX: sq heparin D/W RN and RT Pt. is DNR Updated 05/23/21 Continue current vent support, currently on PS 10/5 40%, tolerating well, PS during the day as tolerated S/P trach 05/15/2021 unable to wean precedex 2/2 increased BP and HR Follow ABG/CXR--changes as needed Follow ID recs for ABX Follow GI recs--now with ileus, PEG tube on hold, ongoing gastric output og to LIS Follow nephrology recs-- HD on hold, last HD was 05/12/21 Follow Cardiology recs-- Continue TPN for nutritional support DVT/GI PPX: sq heparin D/W RN and RT Pt. is DNR cct 30 min SELENE FERRO MD May 26, 2021 05:45
[2021-05-26] MEDS: HEPARIN for SUB-Q USE 5,000 UNIT/ML VIAL. SQ SCH ×3 (06:27→21:41)
[2021-05-26 06:38] LABS: BASO # 0.1 x10^3/uL (0.0-0.2); BASO % 1 % (0-3); EOS # 0.4 x10^3/uL (0.0-0.7); EOS % 3 % (0-3); HEMATOCRIT 22.3 % (39.0-53.0); HEMOGLOBIN 7.2 g/dL (13.0-17.5); LYMPH # 2.9 x10^3/uL (1.0-4.8); LYMPH % 23 % (24-48); MEAN CORPUSCULAR HEMOGLOBIN 27 pg (25-35); MEAN CORPUSCULAR HGB CONC 32 g/dL (31-37); MEAN CORPUSCULAR VOLUME 83 fL (79-100); MONO # 1.5 x10^3/uL (0.0-1.1); MONO % 12 % (0-9); NEUT % 62 % (31-73); PLATELET COUNT 261 x10^3/uL (140-400); RED BLOOD COUNT 2.68 x10^6/uL (4.30-5.70); RED CELL DISTRIBUTION WIDTH 17.3 % (11.5-14.5); WHITE BLOOD COUNT 12.9 x10^3/uL (4.0-11.0)
[2021-05-26 06:43] LABS: CALCIUM 8.3 mg/dL (8.5-10.1); CREATININE 1.8 mg/dL (0.7-1.3); GFR 44.9; POTASSIUM 3.6 mmol/L (3.5-5.1)
[2021-05-26] MEDS ORDERED: DIALYSIS PATIENT. MC PRN ×2 (07:15)
[2021-05-26] MEDS ORDERED: IV NORMAL SALINE 1000ML BAG 1,000 ML IV PRN ×2 (07:15)
[2021-05-26] MEDS ORDERED: ALBUMIN HUMAN 25% 200 ML IV PRN (07:15)
--- NOTE | 2021-05-26 07:52 | PDOC ---
Infectious Disease Note Subjective: Subjective Pt remains vent dependent Afebrile Undergoing dialysis Vital Signs: Vital Signs Vital Signs Date Time Temp Pulse Resp B/P (MAP) Pulse Ox O2 Delivery O2 Flow Rate FiO2 05/26/21 07:19 25 100 Ventilator 05/26/21 07:07 97.6 58 95/47 (63) 97.6 05/25/21 16:00 8.0 Physical Exam: PHYSICAL EXAM GENERAL: Well-developed and well-nourished male, sedated HEENT: Normocephalic, atraumatic, redness and erythema of both eyes improved, NG tube present NECK: right dialysis catheter present clean,central line changed ( 05/11) Trach + HEART: S1, S2. LUNGS: Decreased breath sounds. ABDOMEN: distended,hypoactive BS GENITOURINARY: Nieves in place. EXTREMITIES: Edema present. DERMATOLOGIC: Warm, dry, no generalized rash. NEUROLOGIC: Opens eyes PICC line clean Medications: Inpatient Meds: Medications reviewed. Labs: Lab Laboratory Tests Test 05/25/21 11:31 05/25/21 18:04 05/26/21 00:11 05/26/21 06:08 Glucose (Fingerstick) 230 mg/dL (70-99) 161 mg/dL (70-99) 175 mg/dL (70-99) White Blood Count 12.9 x10^3/uL (4.0-11.0) Red Blood Count 2.68 x10^6/uL (4.30-5.70) Hemoglobin 7.2 g/dL (13.0-17.5) Hematocrit 22.3 % (39.0-53.0) Mean Corpuscular Volume 83 fL (79-100) Mean Corpuscular Hemoglobin 27 pg (25-35) Mean Corpuscular Hemoglobin Concent 32 g/dL (31-37) Red Cell Distribution Width 17.3 % (11.5-14.5) Platelet Count 261 x10^3/uL (140-400) Neutrophils (%) (Auto) 62 % (31-73) Lymphocytes (%) (Auto) 23 % (24-48) Monocytes (%) (Auto) 12 % (0-9) Eosinophils (%) (Auto) 3 % (0-3) Basophils (%) (Auto) 1 % (0-3) Neutrophils # (Auto) 8.0 x10^3/uL (1.8-7.7) Lymphocytes # (Auto) 2.9 x10^3/uL (1.0-4.8) Monocytes # (Auto) 1.5 x10^3/uL (0.0-1.1) Eosinophils # (Auto) 0.4 x10^3/uL (0.0-0.7) Basophils # (Auto) 0.1 x10^3/uL (0.0-0.2) Sodium Level 140 mmol/L (136-145) Potassium Level 3.6 mmol/L (3.5-5.1) Chloride Level 107 mmol/L (98-107) Carbon Dioxide Level 28 mmol/L (21-32) Anion Gap 5 (6-14) Blood Urea Nitrogen 26 mg/dL (8-26) Creatinine 1.8 mg/dL (0.7-1.3) Estimated GFR (Cockcroft-Gault) 44.9 Glucose Level 184 mg/dL (70-99) Calcium Level 8.3 mg/dL (8.5-10.1) Test 05/26/21 06:24 Glucose (Fingerstick) 161 mg/dL (70-99) Objective: Assessment: 1. Febrile illnessresolved 2. Leukocytosis, was on steroids,ileus could contribute,improving 3. COVID-19 pneumonia. 4. Acute hypoxic respiratory failure status post intubation.Now S/P Trach 05/15 5. Congestive heart failure, acute on chronic. 6. Acute kidney injury on chronic kidney disease on hemodialysis. 7. Diabetes mellitus 2. 8. Atrial fibrillation. 9. Anemia. 10. Protein-calorie malnutrition. 11. Hypertention 12.Hyponatremia 13. Ileus, Bowel obstruction Peg TF on hold, OG to LIS 14.on PPN 15.Mild to Moderate Pleural effusion 16.Lt eye conjunctivitis resolved Plan: Plan of Care 1. Monitor off Merrem ( 05/25) Cultures negative 2. Follow-up labs and cultures. 3. Central line changed on 05/11,C. difficile PCR negative 4. Continue supportive care. 5 cont local eye care Remains critically ill ALAYNA RIVERO MD May 26, 2021 07:52
[2021-05-26] MEDS: ASPIRIN CHEWABLE 81 MG TABLET. PO SCH (08:00)
--- NOTE | 2021-05-26 09:09 | PDOC ---
[employer] PROGRESS NOTE Date of Service DOS: DATE: 05/26/21 TIME: 09:07 Chief Complaint Chief Complaint Respiratory failure requiring intubation COVID-19 Acute VT A. fib SIRS Hypertension with hypertensive urgency Hyperlipidemia CKD Diabetes History of bilateral subclavian stenosis History of marijuana use Severe protein calorie malnutrition Trach placed on May 15 GI consulted for PEG evaluation --> patient with a lot of vomiting yesterday thus current NG tube to low intermittent suction History of Present Illness History of Present Illness 05/26/2021: Afebrile. On vent with FiO2 40%, PEEP 5. Hemoglobin 7.3 yesterday, and hemoglobin 7.2 today; continue to trend. Leukocytosis slightly improved, WBC 12.9 today. Has been accepted at [facility]; transfer pending, but will need PEG tube placement prior. Critical care time 30 minutes spent reviewing charts, reviewing labs, reviewing imaging, discussion with RN. 05/25/2021: Afebrile. On vent with FiO2 40%, PEEP 5. Hemoglobin 8.6 yesterday, hemoglobin 7.3 today. Reportedly had HD yesterday. Continue IV antibiotics, per ID; WBC possibly reactive to ileus. Has been accepted at [facility]; g[facility] sfer pending, but will need PEG tube placement prior. Critical care time 30 minutes spent reviewing charts, reviewing labs, reviewing imaging, discussion with RN. 05/24/2021: No acute events overnight. Afebrile. NG tube output has decreased. Kidney function appears stable. Continue IV antibiotics, per ID. Patient has been accepted to [facility], pending insurance authorization. Critical care time 30 minutes spent reviewing charts, reviewing labs, reviewing imaging, discussion with RN. 05/23/2021: Afebrile. On vent with FiO2 40%, PEEP 5. NG tube for 635 mL out overnight. Continue NG tube to suction. HD per nephrology. Continue IV antibiotics, per ID. Critical care time 30 minutes spent reviewing charts, reviewing labs, reviewing imaging, discussion with RN. 05/22/2021: Afebrile. On vent with FiO2 40%, PEEP 5. Continues to have excessive NG output. Continue NG tube to suction for now; PEG on hold for now. Continue hemodialysis, per nephrology. Continue IV antibiotics, per ID. Social work helping with discharge planning to [facility]ACH likely in the near future after PEG is placed. Critical care time 30 minutes spent reviewing charts, reviewing labs, reviewing imaging, discussion with RN. 05/21/2021: Afebrile, no acute events overnight. Remains on vent, FiO2 40%, PEEP 5. S/P tracheostomy on 05/15/2021. KUB on 05/19/2021 consistent with ileus. Per GI, continue NG tube to suction and parenteral nutrition for now. Continue IV antibiotics, per ID. Continue hemodialysis, per nephrology. Continue sup portive care. Critical care time 30 minutes spent reviewing charts, reviewing imaging, reviewing labs, and discussed with RN. 05/20/21 Patient seen and examined at bedside. Again had multiple bouts of vomiting yesterday. GI continuing to follow for PEG evaluation although on hold right now due to persistent vomiting. Leukocytosis does persist but patient afebrile. Plan of care discussed with bedside RN 05/19/21 Patient seen and examined at bedside. Apparently had a fair bit of vomiting overnight. GI following for PEG evaluation. Otherwise patient remained stable. Plan of care discussed with bedside nurse. 05/18/21 Patient seen and examined at bedside. Attempting to increase tube feeds, GI consulted for PEG evaluation. Otherwise no major clinical changes. Continue to wean sedation. Plan of care discussed with bedside nurse. 05/17/21 Patient seen and examined at bedside. Attempting to wean sedation. Patient with some diarrhea. Per infectious disease will give erythromycin eye ointment for eye lesions. Nephro and pulm also following. Continue sedation weaning, plan of care discussed with bedside nurse. 05/16/21 Patient seen and examined at bedside. Underwent tracheostomy yesterday today tolerated well. When seen this morning patient is still notably sedated respiratory status is stable. Continue antibiotics and supportive measures. Plan of care discussed with bedside nurse. Attempt to wean sedation. 05/15/21 Patient seen and examined at bedside Remains intubated and sedated planning for tracheostomy today Continue current respiratory support; continue antibiotics, continue sedation Follow recommendations of pulmonary, renal, and infectious disease Plan of care discussed with bedside nurse Will follow up with patient after surgery today 05/14/21 Patient seen and examined at bedside Remains intubated and sedated planning for tracheostomy tomorrow Continue current respiratory support; continue antibiotics, continue sedation Follow recommendations of pulmonary, renal, and infectious disease Plan of care discussed with bedside nurse 05/13/2021 did not tolerate sedation vacation 05/11/2021, profoundly hypertensive ABG/CXR--changes as needed Continue iv cefepime , add zyvox, sputum culture VENT [id number]%, 5 of PEEP Mild pulmonary edema with new small right pleural effusion and basilar opacities now on cardene gtt prn Patient seen and examined in the [place] [id number] ICU remains mechanically ventilated ILDA on CKD - ATN 2/2 sepsis/ Hypotension,UOP good,on IV Lasix ; requiring dialysis, Sedated with propofol Dex and fentanyl Chart reviewed Discussed with RN He remains critically ill intubated/sedated cont cardene gtt not able to tolerate PS trial 05/06/21 Change central line and send cath tip for cultures. 05-09 C. difficile PCR ADELSO AVILA MD ORDERED: BCULT Procedure Result BLOOD CULTURE Final NO GROWTH AFTER 5 DAYS JONES FISHMAN MD RIFFEShanita,BRIAN Roberson MD BLOOD CULTURE Preliminary NO GROWTH AFTER 4 DAYS 37 min cc time 05/12/2021 Continue iv cefepime , add zyvox, sputum culture VENT [id number]%, 5 of PEEP Mild pulmonary edema with new small right pleural effusion and basilar opacities now on cardene gtt prn Patient seen and examined in the [place] [address] ICU remains mechanically ventilated ILDA on CKD - ATN 2/2 sepsis/ Hypotension,UOP good,on IV Lasix ; requiring dialysis, Sedated with propofol Dex and fentanyl Chart reviewed Discussed with RN He remains critically ill intubated/sedated cont cardene gtt not able to tolerate PS trial 05/06/21 Change central line and send cath tip for cultures. 05-09 C. difficile PCR JONES FISHMAN MD,BRIAN AVILA,ADELSO POTTER ORDERED: BCULT Procedure Result BLOOD CULTURE Preliminary NO GROWTH AFTER 2 DAYS BLOOD CULTURE Preliminary NO GROWTH AFTER 4 DAYS 33 min cc time 05/11/2021 Continue iv cefepime , add zyvox, sputum culture VENT [id number]%, 5 of PEEP Mild pulmonary edema with new small right pleural effusion and basilar opacities now on cardene gtt prn Patient seen and examined in the [place] [address] ICU remains mechanically ventilated ILDA on CKD - ATN 2/2 sepsis/ Hypotension,UOP good,on IV Lasix ; requiring dialysis, Sedated with propofol Dex and fentanyl Chart reviewed Discussed with RN He remains critically ill intubated/sedated cont cardene gtt not able to tolerate PS trial 05/06/21 Change central line and send cath tip for cultures. 05-09 C. difficile PCR JONES FISHMAN MD,ADELSO DASILVA MD, MD ORDERED: BCULT Procedure Result BLOOD CULTURE Preliminary NO GROWTH AFTER 2 DAYS ------- ----- BLOOD CULTURE Preliminary NO GROWTH AFTER 4 DAYS 36 min cc time 05/10/2021 VENT [id number]%, 5 of PEEP Mild pulmonary edema with new small right pleural effusion and basilar opacities now on cardene gtt prn Patient seen and examined in the [place] [address] ICU remains mechanically ventilated ILDA on CKD - ATN 2/2 sepsis/ Hypotension,UOP good,on IV Lasix ; requiring d ialysis, Sedated with propofol Dex and fentanyl Chart reviewed Discussed with RN He remains critically ill intubated/sedated cont cardene gtt not able to tolerate PS trial 05/06/21 Change central line and send cath tip for cultures. 05-09 C. difficile PCR JONES FISHMAN MD,BRIAN AVILA,ADELSO POTTER ORDERED: BCULT Procedure Result BLOOD CULTURE Preliminary NO GROWTH AFTER 2 DAYS BLOOD CULTURE Preliminary NO GROWTH AFTER 4 DAYS 33 min cc time 05/09/2021 VENT %, 5 of PEEP Mild pulmonary edema with new small right pleural effusion and basilar opacities now on cardene gtt prn Patient seen and examined in the [facility] ICU remains mechanically ventilated ILDA on CKD - ATN 2/2 sepsis/ Hypotension,UOP good,on IV Lasix ; requiring dialysis, Sedated with propofol Dex and fentanyl Chart reviewed Discussed with RN He remains critically ill intubated/sedated cont cardene gtt not able to tolerate PS trial 05/06/21 Change central line and send cath tip for cultures. 05-09 C. difficile PCR JONES FISHMAN MD,ADELSO DASILVA MD, MD ORDERED: BCULT Procedure Result ---- -------- BLOOD CULTURE Preliminary NO GROWTH AFTER 2 DAYS BLOOD CULTURE Preliminary NO GROWTH AFTER 4 DAYS 37 min cc time 05/08/2021 Currently on 40%, 5 of PEEP now on cardene gtt Patient seen and examined in the [facility] ICU remains mechanically ventilated ILDA on CKD - ATN 2/2 sepsis/ Hypotension,UOP good,on IV Lasix ; requiring dialysis, AC/20/500/40 percent with 5 of PEEP Sedated with propofol Dex and fentanyl Chart reviewed Discussed with RN He remains critically ill intubated/sedated cont cardene gtt not able to tolerate PS trial 05/06/21 JONES FISHMAN MD,ADELSO DASILVA MD, MD ORDERED: BCULT Procedure Result BLOOD CULTURE Preliminary NO GROWTH AFTER 2 DAYS BLOOD CULTURE Preliminary NO GROWTH AFTER 4 DAYS 33 min cc time 05/07/2021 Patient seen and examined in the [place] [address] ICU He remains mechanically ventilated ILDA on CKD - ATN 2/2 sepsis/ Hypotension,UOP good,on IV Lasix ; requiring dialysis, AC/20/500/40 percent with 5 of PEEP Sedated with propofol Dex and fentanyl Chart reviewed Discussed with RN He remains critically ill intubated/sedated cont cardene gtt not able to tolerate PS trial 05/06/21 JONES FISHMAN MD, CHRISTOPHER S MD SISILLO, SABATO MD ORDERED: BCULT Procedure Result BLOOD CULTURE Preliminary NO GROWTH AFTER 2 DAYS 36 min cc time 05/06/2021 Patient seen and examined in the [place] [address] ICU He remains mechanically ventilated AC/20/500/40 percent with 5 of PEEP Sedated with propofol Dex and fentanyl Chart reviewed Discussed with RN He remains critically ill 05/05/2020 Patient seen and examined in the [place] [address] ICU He remains on the vent AC/20/500/40 percent with 5 of PEEP Discussed with RN Chart reviewed Has SCDs in place Nieves to bedside drainage He remains critically ill 05/04/2021 Patient seen and examined in the [place] [address] ICU Still intubated Sedated with propofol and fentanyl AC/20/500/70 percent with 5 of PEEP On dialysis currently Has SCDs in Nieves to bedside drainage Discussed with RN Chart reviewed 05/03/2021 Patient seen and examined in the [place] [address] ICU He is still intubated AC/20/500/70 percent with 5 of PEEP Has SCDs in place Nieves to bedside drainage Sedated with fentanyl Versed and propofol Discussed are Chart reviewed Remains critically ill 05/02/2021 Patient seen and examined in the [place] [address] ICU He is sedated with propofol fentanyl and Versed Ventilator settings as follow AC/20/500/40 percent with 5 of PEEP Has Nieves to bedside drainage Chart reviewed Discussed with RN He remains critically ill 05/01/2021 Patient seen and examined in the [place] [address] ICU He is still intubated AC/20/500/40 percent with 5 of PEEP In A. fib Sedated with propofol fentanyl and Versed Has a heparin drip Missy with RN Chart reviewed He remains critically 04/30/2020 Patient seen and examined in the [facility]- ICU He remains on the vent AC/20/500/40 5% with 5 PEEP Currently on dialysis Has OG feeds running Has a Nieves to bedside drainage Sedated with propofol and fentanyl Reviewed chart Discussed with RN He remains critically ill Mr Cunha is a 75 yo male w/ PMHx CAD, HTN, Hyperlipidemia, subclavian steel syndrome, subclavian stenosis s/p left subclavian sent placement complicated by retroperitoneal hematoma s/p evacuation in 08/2015), asthma, BART, CKD, DM2 who presented from home with home health care noted that he was short of breath and valverde with O2 saturations less than 89% as low as 84% not improved with nasal cannulated oxygen placed on CPAP and brought to ED for further care. He was just discharged from the hospital a week ago on April 19, 2021 for abdominal pain and was going for further cardiac testing with outpatient stress testing scheduled on May 28, 2021. Had echocardiogram April 17, 2021 with normal-appearing EF with moderate concentric LVH no significant valvular abnormalities. WBC 20, Hb 10.7, platelets 268, NA 140, K3.8, BUN 21, CR 2.9, glucose 162, albumin 3, troponin I 1.372, NT proBNP 33,318. EKG appears sinus tachycardia rate of 105 bpm with multiple PACs small ST depressions in lead II and V5. TWI in V6. Chest radiograph with diffuse interstitial and alveolar opacities and ET tube 5.8 cm above the leilani. Due to worsening respiratory status ED physician elected to intubate patient. Seen postintubation. Blood pressure little low after propofol bolus, but imp roved. Significant white frothy sputum per ET tube. Admitted to ICU for further care 04/29/2021: Afebrile, remains on vent at FiO2 45%, PEEP 5. WBC 20.4. Hemodialysis per nephrology. We will continue treatment with empiric antibiotics, remdesivir, and steroids. Continue heparin infusion and supportive care. Critical care time 30 minutes reviewing chart, review labs, review imag ing, discussion with RN. 04/28/2021: Afebrile. FiO2 50%, PEEP 5. Nontunneled HD catheter placed yesterday due to worsening kidney function; eGFR 16 (CKD4). Chest x-ray showed unchanged interstitial opacities. Continue empiric antibiotics, steroids, and remdesivir. Continue heparin infusion, and continue to follow cardiology recommendations on new diagnosis of A. fib. Critical care time 30 minutes reviewing chart, review labs, review imaging, discussion with RN. 04/27/2021: Afebrile. On vent with FiO2 50%, PEEP 5. Troponin 2.8 yesterday; probable type II, demand ischemia. New onset A. fib. Continue heparin drip and as needed digoxin, per cardiology. Continue treatment with remdesivir, steroids, and prophylactic antibiotics. CBG 323 this morning; will add basal insulin. Critical care 30 minutes spent reviewing labs, reviewing imaging, reviewing charts, and discussion with RN. 04/26/2021: COVID-19 positive. Febrile overnight that was managed with cooling blankets. On vent with FiO2 50%, PEEP 5. Per cardiology, elevated troponins likely secondary to demand ischemia; continue heparin drip per cardiology. Maintain fluid balance and avoid nephrotoxins. Continue treatment with remdesivir, steroids, and prophylactic antibiotics. 30 minutes critical care time spent reviewing charts, reviewing labs, reviewing imaging, and discussion with RN. 04/25/2021: On vent FiO2 50, PEEP 5. Febrile, T-max 103.3. Patient was initiated on cooling blankets. Procalcitonin 0.13. Continue coverage for hospital-acquired pneumonia with cefepime. MRSA PCR pending. Critical care time 30 minutes spent reviewing charts, reviewing labs, review of imaging, discussion with RN. Vitals/I&O Vitals/I&O: Vital Signs Date Time Temp Pulse Resp B/P (MAP) Pulse Ox O2 Delivery O2 Flow Rate FiO2 05/26/21 07:19 25 100 Ventilator 05/26/21 07:07 97.6 58 95/47 (63) 97.6 05/25/21 16:00 8.0 I & O 05/25/21 05/25/21 05/26/21 15:00 23:00 07:00 Intake Total 50 ml 750 ml 808 ml Output Total 315 ml 235 ml 360 ml Balance -265 ml 515 ml 448 ml Physical Exam Physical Exam: GENERAL: Well-developed and well-nourished male, sedated HEENT: Normocephalic, atraumatic, redness and erythema of both eyes improved, NG tube present NECK: right dialysis catheter present clean,central line changed ( 05/11) Trach + HEART: S1, S2. LUNGS: Decreased breath sounds. ABDOMEN: distended,hypoactive BS GENITOURINARY: Nieves in place. EXTREMITIES: Edema present. DERMATOLOGIC: Warm, dry, no generalized rash. NEUROLOGIC: Opens eyes PICC line clean General: No acute distress, Other (Answering some questions when awake) Heart: Regular rate, Normal S1, Normal S2 Lungs: Clear Abdomen: Normal bowel sounds, Other (ND) Extremities: No clubbing, No cyanosis, Other (Lower extremity edema) Skin: No rashes, No breakdown, No significant lesion Labs Labs: Laboratory Tests Test 05/25/21 11:31 05/25/21 18:04 05/26/21 00:11 05/26/21 06:08 Glucose (Fingerstick) 230 mg/dL (70-99) 161 mg/dL (70-99) 175 mg/dL (70-99) White Blood Count 12.9 x10^3/uL (4.0-11.0) Red Blood Count 2.68 x10^6/uL (4.30-5.70) Hemoglobin 7.2 g/dL (13.0-17.5) Hematocrit 22.3 % (39.0-53.0) Mean Corpuscular Volume 83 fL (79-100) Mean Corpuscular Hemoglobin 27 pg (25-35) Mean Corpuscular Hemoglobin Concent 32 g/dL (31-37) Red Cell Distribution Width 17.3 % (11.5-14.5) Platelet Count 261 x10^3/uL (140-400) Neutrophils (%) (Auto) 62 % (31-73) Lymphocytes (%) (Auto) 23 % (24-48) Monocytes (%) (Auto) 12 % (0-9) Eosinophils (%) (Auto) 3 % (0-3) Basophils (%) (Auto) 1 % (0-3) Neutrophils # (Auto) 8.0 x10^3/uL (1.8-7.7) Lymphocytes # (Auto) 2.9 x10^3/uL (1.0-4.8) Monocytes # (Auto) 1.5 x10^3/uL (0.0-1.1) Eosinophils # (Auto) 0.4 x10^3/uL (0.0-0.7) Basophils # (Auto) 0.1 x10^3/uL (0.0-0.2) Sodium Level 140 mmol/L (136-145) Potassium Level 3.6 mmol/L (3.5-5.1) Chloride Level 107 mmol/L (98-107) Carbon Dioxide Level 28 mmol/L (21-32) Anion Gap 5 (6-14) Blood Urea Nitrogen 26 mg/dL (8-26) Creatinine 1.8 mg/dL (0.7-1.3) Estimated GFR (Cockcroft-Gault) 44.9 Glucose Level 184 mg/dL (70-99) Calcium Level 8.3 mg/dL (8.5-10.1) Test 05/26/21 06:24 Glucose (Fingerstick) 161 mg/dL (70-99) Assessment and Plan Assessmemt and Plan Problems Medical Problems: (1) Elevated troponin Status: Acute (2) Person under investigation for COVID-19 Status: Acute (3) Pulmonary edema Status: Acute Comment Review of Relevant I have reviewed the following items juanita (where applicable) has been applied. Medications: Current Medications Medications (Trade) Dose Ordered Sig/Jodie Route PRN Reason Start Time Stop Time Status Last Admin Dose Admin Sodium Chloride 90 meq/Potassium Chloride 50 meq/ Magnesium Sulfate 10 meq/Calcium Gluconate 5 meq/ Multivitamins 5 ml/Zinc/Copper/ Manganese/ Selenium 1 ml/ Total Parenteral Nutrition/Amino Acids/Dextrose/ Fat Emulsion Intravenous 1,080 ml @ 45 mls/hr TPN CONT IV 05/25/21 22:00 05/26/21 21:59 05/25/21 21:47 Insulin Glargine (Lantus Syringe) 15 unit QHS SQ 05/25/21 21:00 05/25/21 20:56 Justifications for Admission General Conditions Altered mental status?: Yes Justification of admission: Patient has tachycardia (> 100 beats per minute) or hypotension (SBP < 90 mm Hg) leading to inadequate systemic perfusion as indicated by severe/persistent altered mental status. Other Justification SARAH BETH ARREOLA MD May 26, 2021 09:09
[2021-05-26] MEDS: TPN PER PHARMACY MC PRN (11:04)
--- NOTE | 2021-05-26 11:04 | NUR ---
Pharmacy TPN Dosing Note S: NILAM LAN is a 75 year old M Currently receiving Central Continuous TPN started 05/22/21 B:Pertinent PMH: ILEUS Height: 6 feet, 2 inches Weight: 156.9 kg Current diet: NPO LABS: Sodium: 140 Potassium: 3.6 Chloride: 107 Calcium: 8.3 Corrected Calcium: 10.38 Magnesium: 2.1 CO2: 28 SCr: 1.8 Glucose: 175, 184, 161 Albumin: 1.4 AST: 25 ALT: 16 TPN FORMULA: TPN TYPE: Central Continuous AMINO ACIDS: 60 gm DEXTROSE: 195 gm LIPIDS: 20 gm SODIUM CHLORIDE: 90 mEq POTASSIUM CHLORIDE: 50 mEq MAGNESIUM: 10 mEq CALCIUM: 5 mEq MULTIPLE VITAMIN: 5 ml TRACE ELEMENTS: 1 ml TPN PLAN: -Labs appear stable, no changes in TPN. -No labs tomorrow per pharmacy. R: Continue TPN @ current rate and above formula. Will monitor electrolytes, glucose, and tolerance to TPN. PHILIPPE OROPEZA FORMERLY [facility] [place], 05/26/21 [id number]
--- NOTE | 2021-05-26 11:13 | PDOC ---
Dialysis Progress Note Date of Service: DATE: 05/26/21 TIME: 11:08 Dialysis Note Dialysis Note Seen on Hemodialysis, tolerating treatment Okay so far Vitals on Hemodialysis: 133 / 61 96 afeb General Appearance: Awake: Neck: No JVD or JVP Chest: coarse Breath sounds Heart: S1 S2, occ tach Abdomen - Soft NTND Extremities - + Edema Possible ESRD VERSUS ARF/ATN plus CKD 4: Dialysis as below F 180 NR 3.0 Hrs 4 K 2.5 Ca 140 Na 35 HC03 Qb 350 + Qd 500+ Heparin 0 Units Uf 2-3 Kgs or to dry weight as tolerated May give 25-50 gms of 25% Albumin if needed to maintain Hemodynamic stability Treatment plan reviewed and discussed with back tender Will order permacath for Friday Vitals Vital Signs Vital Signs Date Time Temp Pulse Resp B/P (MAP) Pulse Ox O2 Delivery O2 Flow Rate FiO2 05/26/21 11:01 100 24 151/75 (100) 100 Ventilator 05/26/21 07:07 97.6 97.6 05/25/21 16:00 8.0 Labs Last Labs Laboratory Tests Test 05/24/21 12:26 05/24/21 17:56 05/24/21 21:33 05/25/21 00:00 Glucose (Fingerstick) 234 mg/dL (70-99) 199 mg/dL (70-99) 236 mg/dL (70-99) 225 mg/dL (70-99) Test 05/25/21 04:53 05/25/21 04:59 05/25/21 11:31 05/25/21 18:04 Glucose (Fingerstick) 223 mg/dL (70-99) 230 mg/dL (70-99) 161 mg/dL (70-99) White Blood Count 14.9 x10^3/uL (4.0-11.0) Red Blood Count 2.72 x10^6/uL (4.30-5.70) Hemoglobin 7.3 g/dL (13.0-17.5) Hematocrit 22.9 % (39.0-53.0) Mean Corpuscular Volume 84 fL (79-100) Mean Corpuscular Hemoglobin 27 pg (25-35) Mean Corpuscular Hemoglobin Concent 32 g/dL (31-37) Red Cell Distribution Width 17.4 % (11.5-14.5) Platelet Count 274 x10^3/uL (140-400) Neutrophils (%) (Auto) 60 % (31-73) Lymphocytes (%) (Auto) 24 % (24-48) Monocytes (%) (Auto) 12 % (0-9) Eosinophils (%) (Auto) 4 % (0-3) Basophils (%) (Auto) 1 % (0-3) Neutrophils # (Auto) 8.9 x10^3/uL (1.8-7.7) Lymphocytes # (Auto) 3.6 x10^3/uL (1.0-4.8) Monocytes # (Auto) 1.8 x10^3/uL (0.0-1.1) Eosinophils # (Auto) 0.6 x10^3/uL (0.0-0.7) Basophils # (Auto) 0.1 x10^3/uL (0.0-0.2) Sodium Level 142 mmol/L (136-145) Potassium Level 3.8 mmol/L (3.5-5.1) Chloride Level 109 mmol/L (98-107) Carbon Dioxide Level 25 mmol/L (21-32) Anion Gap 8 (6-14) Blood Urea Nitrogen 27 mg/dL (8-26) Creatinine 1.9 mg/dL (0.7-1.3) Estimated GFR (Cockcroft-Gault) 42.1 Glucose Level 250 mg/dL (70-99) Calcium Level 8.5 mg/dL (8.5-10.1) Phosphorus Level 2.8 mg/dL (2.6-4.7) Magnesium Level 2.0 mg/dL (1.8-2.4) Test 05/26/21 00:11 05/26/21 06:08 05/26/21 06:24 Glucose (Fingerstick) 175 mg/dL (70-99) 161 mg/dL (70-99) White Blood Count 12.9 x10^3/uL (4.0-11.0) Red Blood Count 2.68 x10^6/uL (4.30-5.70) Hemoglobin 7.2 g/dL (13.0-17.5) Hematocrit 22.3 % (39.0-53.0) Mean Corpuscular Volume 83 fL (79-100) Mean Corpuscular Hemoglobin 27 pg (25-35) Mean Corpuscular Hemoglobin Concent 32 g/dL (31-37) Red Cell Distribution Width 17.3 % (11.5-14.5) Platelet Count 261 x10^3/uL (140-400) Neutrophils (%) (Auto) 62 % (31-73) Lymphocytes (%) (Auto) 23 % (24-48) Monocytes (%) (Auto) 12 % (0-9) Eosinophils (%) (Auto) 3 % (0-3) Basophils (%) (Auto) 1 % (0-3) Neutrophils # (Auto) 8.0 x10^3/uL (1.8-7.7) Lymphocytes # (Auto) 2.9 x10^3/uL (1.0-4.8) Monocytes # (Auto) 1.5 x10^3/uL (0.0-1.1) Eosinophils # (Auto) 0.4 x10^3/uL (0.0-0.7) Basophils # (Auto) 0.1 x10^3/uL (0.0-0.2) Sodium Level 140 mmol/L (136-145) Potassium Level 3.6 mmol/L (3.5-5.1) Chloride Level 107 mmol/L (98-107) Carbon Dioxide Level 28 mmol/L (21-32) Anion Gap 5 (6-14) Blood Urea Nitrogen 26 mg/dL (8-26) Creatinine 1.8 mg/dL (0.7-1.3) Estimated GFR (Cockcroft-Gault) 44.9 Glucose Level 184 mg/dL (70-99) Calcium Level 8.3 mg/dL (8.5-10.1) Hepatitis B Surface Antigen Nonreactive (Nonreactive) Laboratory Tests Test 05/25/21 11:31 05/25/21 18:04 05/26/21 00:11 05/26/21 06:08 Glucose (Fingerstick) 230 mg/dL (70-99) 161 mg/dL (70-99) 175 mg/dL (70-99) White Blood Count 12.9 x10^3/uL (4.0-11.0) Red Blood Count 2.68 x10^6/uL (4.30-5.70) Hemoglobin 7.2 g/dL (13.0-17.5) Hematocrit 22.3 % (39.0-53.0) Mean Corpuscular Volume 83 fL (79-100) Mean Corpuscular Hemoglobin 27 pg (25-35) Mean Corpuscular Hemoglobin Concent 32 g/dL (31-37) Red Cell Distribution Width 17.3 % (11.5-14.5) Platelet Count 261 x10^3/uL (140-400) Neutrophils (%) (Auto) 62 % (31-73) Lymphocytes (%) (Auto) 23 % (24-48) Monocytes (%) (Auto) 12 % (0-9) Eosinophils (%) (Auto) 3 % (0-3) Basophils (%) (Auto) 1 % (0-3) Neutrophils # (Auto) 8.0 x10^3/uL (1.8-7.7) Lymphocytes # (Auto) 2.9 x10^3/uL (1.0-4.8) Monocytes # (Auto) 1.5 x10^3/uL (0.0-1.1) Eosinophils # (Auto) 0.4 x10^3/uL (0.0-0.7) Basophils # (Auto) 0.1 x10^3/uL (0.0-0.2) Sodium Level 140 mmol/L (136-145) Potassium Level 3.6 mmol/L (3.5-5.1) Chloride Level 107 mmol/L (98-107) Carbon Dioxide Level 28 mmol/L (21-32) Anion Gap 5 (6-14) Blood Urea Nitrogen 26 mg/dL (8-26) Creatinine 1.8 mg/dL (0.7-1.3) Estimated GFR (Cockcroft-Gault) 44.9 Glucose Level 184 mg/dL (70-99) Calcium Level 8.3 mg/dL (8.5-10.1) Hepatitis B Surface Antigen Nonreactive (Nonreactive) Test 05/26/21 06:24 Glucose (Fingerstick) 161 mg/dL (70-99) Assessment Assessment Problems Medical Problems: (1) Elevated troponin Status: Acute (2) Person under investigation for COVID-19 Status: Acute (3) Pulmonary edema Status: Acute Plan Plan of Care Problems Medical Problems: (1) Elevated troponin Status: Acute (2) Person under investigation for COVID-19 Status: Acute (3) Pulmonary edema Status: Acute DEREK RIVERO MD May 26, 2021 11:12
[2021-05-26] MEDS: PANTOPRAZOLE IV PUSH 40 MG VIAL. IVP SCH (13:25)
[2021-05-26] MEDS: NYSTATIN TOPICAL POWDER 15GM BOTTLE. TP SCH ×2 (13:25→21:39)
[2021-05-26] MEDS: LABETALOL 20 MG/4 ML DISP.SYRIN. IVP PRN (16:35)
[2021-05-26] MEDS: ATORVASTATIN CALCIUM 40 MG TABLET. PO SCH (21:00)
[2021-05-26] MEDS: MONTELUKAST SODIUM 10 MG TABLET. PO SCH (21:00)
[2021-05-26] MEDS: INSULIN GLARGINE SYRINGE. SQ SCH (21:41)
[2021-05-26] MEDS ORDERED: DEXTROSE 70% IV SCH (22:00)
[2021-05-26] MEDS ORDERED: TOTAL PARENTERAL NUTRITION IV SCH (22:00)
[2021-05-26] MEDS ORDERED: AMINO ACID IV SCH (22:00)
[2021-05-26] MEDS ORDERED: [UNRECOGNIZED DRUG - OTHER] IV SCH (22:00)
[2021-05-27] VITALS (35 sets, daily range): BP systolic 93–200; BP diastolic 48–101
[2021-05-27] MEDS: hydrALAZINE 20 MG/ML VIAL. IVP PRN ×3 (02:38→19:40)
[2021-05-27] MEDS: DEXMEDETOMIDINE 400 MCG in IV NORMAL SALINE 100ML 96 ML IV PRN ×7 (03:49→23:04)
--- NOTE | 2021-05-27 05:07 | PDOC ---
PULMONARY PROGRESS NOTES DATE: 05/27/21 TIME: 05:07 Subjective currently on PS 10/5,40%. pressure support x72 hrs didnt tolerate lower pressure yesterday agitated/tachypnea/tachycardia w decreasing sedation on precedex fentanyl Blood pressure difficult to control during CPAP trials. On multiple antihypertensive medications. s/p dialysis 05/26 Afebrile Vitals Vital Signs Date Time Temp Pulse Resp B/P (MAP) Pulse Ox O2 Delivery O2 Flow Rate FiO2 05/27/21 04:00 Mechanical Ventilator 05/27/21 03:08 100 05/27/21 02:38 82 184/87 05/27/21 02:30 20 05/27/21 00:00 98.1 98.1 05/26/21 12:36 10.0 HEENT: Other (Trachea midline) Lungs: Crackles Cardiovascular: S1, S2 Abdomen: Soft Extremities: No Edema Skin: Warm Labs Laboratory Tests Test 05/25/21 11:31 05/25/21 18:04 05/26/21 00:11 05/26/21 06:08 Glucose (Fingerstick) 230 mg/dL (70-99) 161 mg/dL (70-99) 175 mg/dL (70-99) White Blood Count 12.9 x10^3/uL (4.0-11.0) Red Blood Count 2.68 x10^6/uL (4.30-5.70) Hemoglobin 7.2 g/dL (13.0-17.5) Hematocrit 22.3 % (39.0-53.0) Mean Corpuscular Volume 83 fL (79-100) Mean Corpuscular Hemoglobin 27 pg (25-35) Mean Corpuscular Hemoglobin Concent 32 g/dL (31-37) Red Cell Distribution Width 17.3 % (11.5-14.5) Platelet Count 261 x10^3/uL (140-400) Neutrophils (%) (Auto) 62 % (31-73) Lymphocytes (%) (Auto) 23 % (24-48) Monocytes (%) (Auto) 12 % (0-9) Eosinophils (%) (Auto) 3 % (0-3) Basophils (%) (Auto) 1 % (0-3) Neutrophils # (Auto) 8.0 x10^3/uL (1.8-7.7) Lymphocytes # (Auto) 2.9 x10^3/uL (1.0-4.8) Monocytes # (Auto) 1.5 x10^3/uL (0.0-1.1) Eosinophils # (Auto) 0.4 x10^3/uL (0.0-0.7) Basophils # (Auto) 0.1 x10^3/uL (0.0-0.2) Sodium Level 140 mmol/L (136-145) Potassium Level 3.6 mmol/L (3.5-5.1) Chloride Level 107 mmol/L (98-107) Carbon Dioxide Level 28 mmol/L (21-32) Anion Gap 5 (6-14) Blood Urea Nitrogen 26 mg/dL (8-26) Creatinine 1.8 mg/dL (0.7-1.3) Estimated GFR (Cockcroft-Gault) 44.9 Glucose Level 184 mg/dL (70-99) Calcium Level 8.3 mg/dL (8.5-10.1) Hepatitis B Surface Antigen Nonreactive (Nonreactive) Test 05/26/21 06:24 05/26/21 14:33 05/26/21 18:01 05/26/21 23:48 Glucose (Fingerstick) 161 mg/dL (70-99) 151 mg/dL (70-99) 177 mg/dL (70-99) 200 mg/dL (70-99) Laboratory Tests Test 05/26/21 06:08 05/26/21 06:24 05/26/21 14:33 05/26/21 18:01 White Blood Count 12.9 x10^3/uL (4.0-11.0) Red Blood Count 2.68 x10^6/uL (4.30-5.70) Hemoglobin 7.2 g/dL (13.0-17.5) Hematocrit 22.3 % (39.0-53.0) Mean Corpuscular Volume 83 fL (79-100) Mean Corpuscular Hemoglobin 27 pg (25-35) Mean Corpuscular Hemoglobin Concent 32 g/dL (31-37) Red Cell Distribution Width 17.3 % (11.5-14.5) Platelet Count 261 x10^3/uL (140-400) Neutrophils (%) (Auto) 62 % (31-73) Lymphocytes (%) (Auto) 23 % (24-48) Monocytes (%) (Auto) 12 % (0-9) Eosinophils (%) (Auto) 3 % (0-3) Basophils (%) (Auto) 1 % (0-3) Neutrophils # (Auto) 8.0 x10^3/uL (1.8-7.7) Lymphocytes # (Auto) 2.9 x10^3/uL (1.0-4.8) Monocytes # (Auto) 1.5 x10^3/uL (0.0-1.1) Eosinophils # (Auto) 0.4 x10^3/uL (0.0-0.7) Basophils # (Auto) 0.1 x10^3/uL (0.0-0.2) Sodium Level 140 mmol/L (136-145) Potassium Level 3.6 mmol/L (3.5-5.1) Chloride Level 107 mmol/L (98-107) Carbon Dioxide Level 28 mmol/L (21-32) Anion Gap 5 (6-14) Blood Urea Nitrogen 26 mg/dL (8-26) Creatinine 1.8 mg/dL (0.7-1.3) Estimated GFR (Cockcroft-Gault) 44.9 Glucose Level 184 mg/dL (70-99) Calcium Level 8.3 mg/dL (8.5-10.1) Hepatitis B Surface Antigen Nonreactive (Nonreactive) Glucose (Fingerstick) 161 mg/dL (70-99) 151 mg/dL (70-99) 177 mg/dL (70-99) Test 05/26/21 23:48 Glucose (Fingerstick) 200 mg/dL (70-99) Medications Active Scripts Medications Dose Route/Sig Max Daily Dose Days Date Category Glyburide 2.5 Mg Tablet 1 Tab PO DAILY 04/19/21 Rx Polyethylene Glycol 3350 17 Gm Powd.pack 17 Gm PO DAILY 04/19/21 Rx Dok (Docusate Sodium) 100 Mg Capsule 100 Mg PO PRN DAILY PRN 30 04/19/21 Rx Bisacodyl 5 Mg Tablet.dr 5 Mg PO PRN DAILY PRN 04/19/21 Rx Acetaminophen 325 Mg Tablet 650 Mg PO PRN Q4HRS PRN 04/19/21 Rx Aspirin Ec (Aspirin) 81 Mg Tablet.dr 81 Mg PO DAILYWBKFT 30 04/19/21 Rx Hydralazine Hcl 25 Mg Tablet 25 Mg PO QID 30 04/19/21 Rx Fenofibrate 54 Mg Tablet 1 Tab PO DAILY 04/17/21 Reported Potassium Chloride (Potassium Chloride) 20 Meq Tablet.er 20 Meq PO DAILY 04/17/21 Reported Coreg (Carvedilol) 12.5 Mg Tablet 37.5 Mg PO BIDWMEALS 04/17/21 Reported Rosuvastatin Calcium 40 Mg Tablet 40 Mg PO QHS 04/17/21 Reported Gabapentin (Gabapentin) 100 Mg Capsule 200 Mg PO BID 04/17/21 Reported Montelukast Sodium Tablet (Montelukast Sodium) 10 Mg Tablet 10 Mg PO HS 04/17/21 Reported Protonix (Pantoprazole Sodium) 20 Mg Tablet.dr 2 Tab PO DAILY 04/17/21 Reported Amlodipine Besylate 5 Mg Tablet 5 Mg PO DAILY 04/17/21 Reported Furosemide 40 Mg Tablet 1 Tab PO DAILY 04/17/21 Reported Proair Hfa Inhaler (Albuterol Sulfate) 8.5 Gm Hfa.aer.ad 2 Puff IH PRN Q4-6HRS PRN 21 04/16/21 Reported Advair 100-50 Diskus (Fluticasone/Salmeterol) 1 Each Disk.w.dev 1 Puff IH BID 04/16/21 Reported Comments Chest x-ray reviewed by me dated 05/23/2021. Minimal left basal effusion/atelectasis. Impression . IMPRESSION: 1. Acute hypoxic respiratory failure, multifactorial/COVID-19 viral pneumonia/ARDS, ongoing, intubated 04/25/2021, now status post tracheostomy 05/15/[address] chest with bilateral diffuse interstitial infiltrates without any significant pleural effusion 3. Leukocytosis, sepsis--improved 4. Non-ST segment elevation [place] 5. History of tobacco use, suspect COPD, unknown FEV1 6. Chronic kidney disease.== HD on hold 7. Metabolic acidosis multifactorial 8. Abnormal chest x-ray 9. Hypoglycemia, continue to monitor--- resolved 10. Hypotension, suspect volume deficit,/possible sepsis--- resolved 11. Fever--improved 12. Anemia--improved 13. Atrial fibrillation with rapid ventricular response, currently rate controlled 14. Ileus Plan . Updated 05/27/21 Continue current vent support, currently on PS 10/5 40%, tolerating well, PS/weaning during the day as tolerated S/P trach 05/15/2021 decrease sedation as tolerated Continue multi antihypertensive medications for control of blood pressure. Follow ABG/CXR--changes as needed Follow ID recs for ABX Follow GI recs-- ileus, PEG tube on hold, ng secretion decreasing Follow nephrology recs-- had hd 05/26 hd per nephro Follow Cardiology recs-- Continue TPN for nutritional support. Patient has ongoing ileus. DVT/GI PPX: sq heparin D/W RN and RT Pt. is DNR Updated 05/26/21 Continue current vent support, currently on PS 10/5 40%, tolerating well, PS/weaning during the day as tolerated S/P trach 05/15/2021 decrease sedation as tolerated Continue multi antihypertensive medications for control of blood pressure. Follow ABG/CXR--changes as needed Follow ID recs for ABX Follow GI recs-- ileus, PEG tube on hold, Follow nephrology recs-- last HD was 05/12/21. Urine output is decreasing. hd today per nephro Follow Cardiology recs-- Continue TPN for nutritional support. Patient has ongoing ileus. DVT/GI PPX: sq heparin D/W RN and RT Pt. is DNR Updated 05/25/21 Continue current vent support, currently on PS 10/5 40%, tolerating well, PS during the day as tolerated S/P trach 05/15/2021 unable to wean precedex 2/2 increased BP and HR Continue multi antihypertensive medications for control of blood pressure. Follow ABG/CXR--changes as needed Follow ID recs for ABX Follow GI recs--now with ileus, PEG tube on hold, ongoing gastric output og to LIS Follow nephrology recs-- HD on hold, last HD was 05/12/21. Urine output is decreasing. Have discussed with Dr. Ariza. He will consider dialyzing him again Follow Cardiology recs-- Continue TPN for nutritional support. Patient has ongoing ileus. DVT/GI PPX: sq heparin D/W RN and RT Pt. is DNR Updated 05/24/21 Continue current vent support, currently on PS 10/5 40%, tolerating well, PS during the day as tolerated S/P trach 05/15/2021 unable to wean precedex 2/2 increased BP and HR Continue multi antihypertensive medications for control of blood pressure. Follow ABG/CXR--changes as needed Follow ID recs for ABX Follow GI recs--now with ileus, PEG tube on hold, ongoing gastric output og to LIS Follow nephrology recs-- HD on hold, last HD was 05/12/21. Urine output is decreasing. Have discussed with Dr. Ariza. He will consider dialyzing him again Follow Cardiology recs-- Continue TPN for nutritional support. Patient has ongoing ileus. DVT/GI PPX: sq heparin D/W RN and RT Pt. is DNR Updated 05/23/21 Continue current vent support, currently on PS 10/5 40%, tolerating well, PS during the day as tolerated S/P trach 05/15/2021 unable to wean precedex 2/2 increased BP and HR Follow ABG/CXR--changes as needed Follow ID recs for ABX Follow GI recs--now with ileus, PEG tube on hold, ongoing gastric output og to LIS Follow nephrology recs-- HD on hold, last HD was 05/12/21 Follow Cardiology recs-- Continue TPN for nutritional support DVT/GI PPX: sq heparin D/W RN and RT Pt. is DNR cct 30 min SELENE FERRO MD May 27, 2021 05:07
[2021-05-27] MEDS: METOPROLOL IV PUSH 5 MG/5 ML VIAL. IVP SCH ×3 (05:58→17:54)
[2021-05-27] MEDS: INSULIN LISPRO 300 UNITS/3 ML VIAL. SQ SCH ×3 (05:59→17:58)
[2021-05-27] MEDS: HEPARIN for SUB-Q USE 5,000 UNIT/ML VIAL. SQ SCH ×3 (05:59→22:14)
[2021-05-27 06:11] LABS: BASO # 0.1 x10^3/uL (0.0-0.2); BASO % 1 % (0-3); EOS # 0.6 x10^3/uL (0.0-0.7); EOS % 4 % (0-3); HEMATOCRIT 22.4 % (39.0-53.0); HEMOGLOBIN 7.2 g/dL (13.0-17.5); LYMPH # 2.9 x10^3/uL (1.0-4.8); LYMPH % 21 % (24-48); MEAN CORPUSCULAR HEMOGLOBIN 27 pg (25-35); MEAN CORPUSCULAR HGB CONC 32 g/dL (31-37); MEAN CORPUSCULAR VOLUME 84 fL (79-100); MONO # 1.6 x10^3/uL (0.0-1.1); MONO % 12 % (0-9); NEUT # 8.2 x10^3/uL (1.8-7.7); NEUT % 61 % (31-73); PLATELET COUNT 292 x10^3/uL (140-400); RED BLOOD COUNT 2.67 x10^6/uL (4.30-5.70); RED CELL DISTRIBUTION WIDTH 17.7 % (11.5-14.5); WHITE BLOOD COUNT 13.4 x10^3/uL (4.0-11.0)
[2021-05-27] MEDS: PANTOPRAZOLE IV PUSH 40 MG VIAL. IVP SCH (07:38)
[2021-05-27] MEDS: ASPIRIN CHEWABLE 81 MG TABLET. PO SCH (08:00)
--- NOTE | 2021-05-27 08:32 | PDOC ---
[employer] PROGRESS NOTE Date of Service DOS: DATE: 05/27/21 TIME: 08:11 Chief Complaint Chief Complaint Respiratory failure requiring intubation COVID-19 Acute [place] A. fib SIRS Hypertension with hypertensive urgency Hyperlipidemia CKD Diabetes History of bilateral subclavian stenosis History of marijuana use Severe protein calorie malnutrition Trach placed on May 15 GI consulted for PEG evaluation --> patient with a lot of vomiting yesterday thus current NG tube to low intermittent suction History of Present Illness History of Present Illness 05/27/2021: Afebrile. On vent with FiO2 40%, PEEP 5. Hemoglobin remains stable at 7.2 today; continue to trend. WBC 13.4. Kidney function appears to be stabilized. LTAC transfer is pending PEG tube placement. Off meropenem; will continue to monitor. Kidney function appears to be stable. Critical care time 30 minutes spent reviewing charts, reviewing labs, reviewing imaging, discussion with RN. 05/26/2021: Afebrile. On vent with FiO2 40%, PEEP 5. Hemoglobin 7.3 yesterday, and hemoglobin 7.2 today; continue to trend. Leukocytosis slightly improved, WBC 12.9 today. Has been accepted at [facility]; transfer pending, but will need PEG tube placement prior. Critical care time 30 minutes spent reviewing charts, reviewing labs, reviewing imaging, discussion with RN. 05/25/2021: Afebrile. On vent with FiO2 40%, PEEP 5. Hemoglobin 8.6 yesterday, hemoglobin 7.3 today. Reportedly had HD yesterday. Continue IV antibiotics, per ID; WBC possibly reactive to ileus. Has been accepted at [facility]; transfer pending, but will need PEG tube placement prior. Critical care time 30 minutes spent reviewing charts, reviewing labs, reviewing imaging, discussion with RN. 05/24/2021: No acute events overnight. Afebrile. NG tube output has decreased. Kidney function appears stable. Continue IV antibiotics, per ID. Patient has been accepted to [facility] hospital, pending insurance authorization. Critical care time 30 minutes spent reviewing charts, reviewing labs, reviewing imaging, discussion with RN. 05/23/2021: Afebrile. On vent with FiO2 40%, PEEP 5. NG tube for 635 mL out overnight. Continue NG tube to suction. HD per nephrology. Continue IV antibiotics, per ID. Critical care time 30 minutes spent reviewing charts, reviewing labs, reviewing imaging, discussion with RN. 05/22/2021: Afebrile. On vent with FiO2 40%, PEEP 5. Continues to have excessive NG output. Continue NG tube to suction for now; PEG on hold for now. Continue hemodialysis, per nephrology. Continue IV antibiotics, per ID. Social work helping with discharge planning to LTACH likely in the near future after PEG is placed. Critical care time 30 minutes spent reviewing charts, reviewing labs, reviewing imaging, discussion with RN. 05/21/2021: Afebrile, no acute events overnight. Remains on vent, FiO2 40%, PEEP 5. S/P tracheostomy on 05/15/2021. KUB on 05/19/2021 consistent with ileus. Per GI, continue NG tube to suction and parenteral nutrition for now. Continue IV antibiotics, per ID. Continue hemodialysis, per nephrology. Continue supportive care. Critical care time 30 minutes spent reviewing charts, reviewing imaging, reviewing labs, and discussed with RN. 05/20/21 Patient seen and examined at bedside. Again had multiple bouts of vomiting yesterday. GI continuing to follow for PEG evaluation although on hold right now due to persistent vomiting. Leukocytosis does persist but patient afebrile. Plan of care discussed with bedside RN 05/19/21 Patient seen and examined at bedside. Apparently had a fair bit of vomiting overnight. GI following for PEG evaluation. Otherwise patient remained stable. Plan of care discussed with bedside nurse. 05/18/21 Patient seen and examined at bedside. Attempting to increase tube feeds, GI consulted for PEG evaluation. Otherwise no major clinical changes. Continue to wean sedation. Plan of care discussed with bedside nurse. 05/17/21 Patient seen and examined at bedside. Attempting to wean sedation. Patient with some diarrhea. Per infectious disease will give erythromycin eye ointment for eye lesions. Nephro and pulm also following. Continue sedation weaning, plan of care discussed with bedside nurse. 05/16/21 Patient seen and examined at bedside. Underwent tracheostomy yesterday today tolerated well. When seen this morning patient is still notably sedated respiratory status is stable. Continue antibiotics and supportive measures. Plan of care discussed with bedside nurse. Attempt to wean sedation. 05/15/21 Patient seen and examined at bedside Remains intubated and sedated planning for tracheostomy today Continue current respiratory support; continue antibiotics, continue sedation Follow recommendations of pulmonary, renal, and infectious disease Plan of care discussed with bedside nurse Will follow up with patient after surgery today 05/14/21 Patient seen and examined at bedside Remains intubated and sedated planning for tracheostomy tomorrow Continue current respiratory support; continue antibiotics, continue sedation Follow recommendations of pulmonary, renal, and infectious disease Plan of care discussed with bedside nurse 05/13/2021 did not tolerate sedation vacation 05/11/2021, profoundly hypertensive ABG/CXR--changes as needed Continue iv cefepime , add zyvox, sputum culture VENT [id number]%, 5 of PEEP Mild pulmonary edema with new small right pleural effusion and basilar opacities now on cardene gtt prn Patient seen and examined in the [place] [id number] ICU remains mechanically ventilated ILDA on CKD - ATN 2/2 sepsis/ Hypotension,UOP good,on IV Lasix ; requiring dialysis, Sedated with propofol Dex and fentanyl Chart reviewed Discussed with RN He remains critically ill intubated/sedated cont cardene gtt not able to tolerate PS trial 05/06/21 Change central line and send cath tip for cultures. 05-09 C. difficile PCR ADELSO AVILA MD ORDERED: BCULT Procedure Result BLOOD CULTURE Final NO GROWTH AFTER 5 DAYS JONES FISHMAN MD, CHRISTOPHER S MD BLOOD CULTURE Preliminary NO GROWTH AFTER 4 DAYS 37 min cc time 05/12/2021 Continue iv cefepime , add zyvox, sputum culture VENT %, 5 of PEEP Mild pulmonary edema with new small right pleural effusion and basilar opacities now on cardene gtt prn Patient seen and examined in the [facility] ICU remains mechanically ventilated ILDA on CKD - ATN 2/2 sepsis/ Hypotension,UOP good,on IV Lasix ; requiring dialysis, Sedated with propofol Dex and fentanyl Chart reviewed Discussed with RN He remains critically ill intubated/sedated cont cardene gtt not able to tolerate PS trial 05/06/21 Change central line and send cath tip for cultures. 05-09 C. difficile PCR JONES FISHMAN MD, CHRISTOPHER S MD SISILLO, SABATO MD ORDERED: BCULT Procedure Result BLOOD CULTURE Preliminary NO GROWTH AFTER 2 DAYS ------ ------ BLOOD CULTURE Preliminary NO GROWTH AFTER 4 DAYS 33 min cc time 05/11/2021 Continue iv cefepime , add zyvox, sputum culture VENT [id number]%, 5 of PEEP Mild pulmonary edema with new small right pleural effusion and basilar opacities now on cardene gtt prn Patient seen and examined in the [id number] ICU remains mechanically ventilated ILDA on CKD - ATN 2/2 sepsis/ Hypotension,UOP good,on IV Lasix ; requiring dialysis, Sedated with propofol Dex and fentanyl Chart reviewed Discussed with RN He remains critically ill intubated/sedated cont cardene gtt not able to tolerate PS trial 05/06/21 Change central line and send cath tip for cultures. 05-09 C. difficile PCR JONES FISHMAN MD,ADELSO DASILVA MD, MD ORDERED: BCULT Procedure Result BLOOD CULTURE Preliminary NO GROWTH AFTER 2 DAYS BLOOD CULTURE Preliminary NO GROWTH AFTER 4 DAYS 36 min cc time 05/10/2021 VENT [id number]%, 5 of PEEP Mild pulmonary edema with new small right pleural effusion and basilar opacities now on cardene gtt prn Patient seen and examined in the [place] [id number] ICU remains mechanically ventilated ILDA on CKD - ATN 2/2 sepsis/ Hypotension,UOP good,on IV Lasix ; requiring dialysis, Sedated with propofol Dex and fentanyl Chart reviewed Discussed with RN He remains critically ill intubated/sedated cont cardene gtt not able to tolerate PS trial 05/06/21 Change central line and send cath tip for cultures. 05-09 C. difficile PCR JONES FISHMAN MD,ADELSO DASILVA MD, MD ORDERED: BCULT --------- --- Procedure Result BLOOD CULTURE Preliminary NO GROWTH AFTER 2 DAYS BLOOD CULTURE Preliminary NO GROWTH AFTER 4 DAYS 33 min cc time 05/09/2021 VENT [id number]%, 5 of PEEP Mild pulmonary edema with new small right pleural effusion and basilar opacities now on cardene gtt prn Patient seen and examined in the [facility]19 ICU remains mechanically ventilated ILDA on CKD - ATN 2/2 sepsis/ Hypotension,UOP good,on IV Lasix ; requiring dialysis, Sedated with propofol Dex and fentanyl Chart reviewed Discussed with RN He remains critically ill intubated/sedated cont cardene gtt not able to tolerate PS trial 05/06/21 Change central line and send cath tip for cultures. 05-09 C. difficile PCR JONES FISHMAN MD,BRIAN AVILA,ADELSO POTTER ORDERED: BCULT Procedure Result BLOOD CULTURE Preliminary NO GROWTH AFTER 2 DAYS BLOOD CULTURE Preliminary NO GROWTH AFTER 4 DAYS 37 min cc time 05/08/2021 Currently on 40%, 5 of PEEP now on cardene gtt Patient seen and examined in the [id number] ICU remains mechanically ventilated ILDA on CKD - ATN 2/2 sepsis/ Hypotension,UOP good,on IV Lasix ; requiring dial ysis, AC/20/500/40 percent with 5 of PEEP Sedated with propofol Dex and fentanyl Chart reviewed Discussed with RN He remains critically ill intubated/sedated cont cardene gtt not able to tolerate PS trial 05/06/21 JONES FISHMAN MD,ADELSO DASILVA MD, MD ORDERED: BCULT Procedure Result BLOOD CULTURE Preliminary NO GROWTH AFTER 2 DAYS BLOOD CULTURE Preliminary NO GROWTH AFTER 4 DAYS 33 min cc time 05/07/2021 Patient seen and examined in the [place] [address] ICU He remains mechanically ventilated ILDA on CKD - ATN 2/2 sepsis/ Hypotension,UOP good,on IV Lasix ; requiring dialysis, AC/20/500/40 percent with 5 of PEEP Sedated with propofol Dex and fentanyl Chart reviewed Discussed with RN He remains critically ill intubated/sedated cont julia gtt not able to tolerate PS trial 05/06/21 JONES FISHMAN MD, CHRISTOPHER S MD SISILLO, SABATO MD ORDERED: BCULT Procedure Result BLOOD CULTURE Preliminary NO GROWTH AFTER 2 DAYS 36 min cc time 05/06/2021 Patient seen and examined in the [place] [address] ICU He remains mechanically ventilated AC/20/500/40 percent with 5 of PEEP Sedated with propofol Dex and fentanyl Chart reviewed Discussed with RN He remains critically ill 05/05/2020 Patient seen and examined in the [place] [address] ICU He remains on the vent AC/20/500/40 percent with 5 of PEEP Discussed with RN Chart reviewed Has SCDs in place Nieevs to bedside drainage He remains critically ill 05/04/2021 Patient seen and examined in the [place] [address] ICU Still intubated Sedated with propofol and fentanyl AC/20/500/70 percent with 5 of PEEP On dialysis currently Has SCDs in Nieves to bedside drainage Discussed with RN Chart reviewed 05/03/2021 Patient seen and examined in the [place] [address] ICU He is still intubated AC/20/500/70 percent with 5 of PEEP Has SCDs in place Nieves to bedside drainage Sedated with fentanyl Versed and propofol Discussed are Chart reviewed Remains critically ill 05/02/2021 Patient seen and examined in the [place] [address] ICU He is sedated with propofol fentanyl and Versed Ventilator settings as follow AC/20/500/40 percent with 5 of PEEP Has Nieves to bedside drainage Chart reviewed Discussed with RN He remains critically ill 05/01/2021 Patient seen and examined in the [place] [address] ICU He is still intubated AC/20/500/40 percent with 5 of PEEP In A. fib Sedated with propofol fentanyl and Versed Has a heparin drip Missy with RN Chart reviewed He remains critically 04/30/2020 Patient seen and examined in the [place] [address] ICU He remains on the vent AC/20/500/40 5% with 5 PEEP Currently on dialysis Has OG feeds running Has a Nieves to bedside drainage Sedated with propofol and fentanyl Reviewed chart Discussed with RN He remains critically ill Mr Cunha is a 75 yo male w/ PMHx CAD, HTN, Hyperlipidemia, subclavian steel syndrome, subclavian stenosis s/p left subclavian sent placement complicated by retroperitoneal hematoma s/p evacuation in 08/2015), asthma, BART, CKD, DM2 who presented from home with home health care noted that he was short of breath and valverde with O2 saturations less than 89% as low as 84% not improved with nasal cannulated oxygen placed on CPAP and brought to ED for further care. He was just discharged from the hospital a week ago on April 19, 2021 for abdominal pain and was going for further cardiac testing with outpatient stress testing scheduled on May 28, 2021. Had echocardiogram April 17, 2021 with normal-appearing EF with moderate concentric LVH no significant valvular abnormalities. WBC 20, Hb 10.7, platelets 268, NA 140, K3.8, BUN 21, CR 2.9, glucose 162, albumin 3, troponin I 1.372, NT proBNP 33,318. EKG appears sinus tachycardia rate of 105 bpm with multiple PACs small ST depressions in lead II and V5. TWI in V6. Chest radiograph with diffuse interstitial and alveolar opacities and ET tube 5.8 cm above the leilani. Due to worsening respiratory status ED physician elected to intubate patient. Seen postintubation. Blood pressure little low after propofol bolus, but improved. Significant white frothy sputum per ET tube. Admitted to ICU for further care 04/29/2021: Afebrile, remains on vent at FiO2 45%, PEEP 5. WBC 20.4. Hemodialysis per nephrology. We will continue treatment with empiric antibiotics, remdesivir, and steroids. Continue heparin infusion and supportive care. Critical care time 30 minutes reviewing chart, review labs, review imaging, discussion with RN. 04/28/2021: Afebrile. FiO2 50%, PEEP 5. Nontunneled HD catheter placed yesterday due to worsening kidney function; eGFR 16 (CKD4). Chest x-ray showed unchanged interstitial opacities. Continue empiric antibiotics, steroids, and remdesivir. Continue heparin infusion, and continue to follow cardiology recommendations on new diagnosis of A. fib. Critical care time 30 minutes reviewing chart, review labs, review imaging, discussion with RN. 04/27/2021: Afebrile. On vent with FiO2 50%, PEEP 5. Troponin 2.8 yesterday; probable type II, demand ischemia. New onset A. fib. Continue heparin drip and as needed digoxin, per cardiology. Continue treatment with remdesivir, steroids, and prophylactic antibiotics. CBG 323 this morning; will add basal insulin. Critical care 30 minutes spent reviewing labs, reviewing imaging, reviewing charts, and discussion with RN. 04/26/2021: COVID-19 positive. Febrile overnight that was managed with cooling blankets. On vent with FiO2 50%, PEEP 5. Per cardiology, elevated troponins likely secondary to demand ischemia; continue heparin drip per cardiology. Maintain fluid balance and avoid nephrotoxins. Continue treatment with remdesivir, steroids, and prophylactic antibiotics. 30 minutes critical care time spent reviewing charts, reviewing labs, reviewing imaging, and discussion with RN. 04/25/2021: On vent FiO2 50, PEEP 5. Febrile, T-max 103.3. Patient was initiated on cooling blankets. Procalcitonin 0.13. Continue coverage for hospital-acquired pneumonia with cefepime. MRSA PCR pending. Critical care time 30 minutes spent reviewing charts, reviewing labs, review of imaging, discussion with RN. Vitals/I&O Vitals/I&O: Vital Signs Date Time Temp Pulse Resp B/P (MAP) Pulse Ox O2 Delivery O2 Flow Rate FiO2 05/27/21 07:43 90 158/73 05/27/21 07:00 28 100 Ventilator 05/27/21 04:00 98.2 98.2 05/26/21 12:36 10.0 I & O 8/21/21 8/21/21 8/22/21 15:00 23:00 07:00 Intake Total 936 ml 851 ml Output Total 200 ml 145 ml 315 ml Balance -200 ml 791 ml 536 ml Physical Exam Physical Exam: GENERAL: Well-developed and well-nourished male, sedated HEENT: Normocephalic, atraumatic, redness and erythema of both eyes improved, NG tube present NECK: right dialysis catheter present clean,central line changed ( 05/11) Trach + HEART: S1, S2. LUNGS: Decreased breath sounds. ABDOMEN: distended,hypoactive BS GENITOURINARY: Nieves in place. EXTREMITIES: Edema present. DERMATOLOGIC: Warm, dry, no generalized rash. NEUROLOGIC: Opens eyes PICC line clean General: No acute distress, Other (Answering some questions when awake) Heart: Regular rate, Normal S1, Normal S2 Lungs: Crackles Abdomen: Normal bowel sounds, Other (ND) Extremities: No clubbing, No cyanosis, Other (Lower extremity edema) Skin: No rashes, No breakdown, No significant lesion Labs Labs: Laboratory Tests Test 05/26/21 14:33 05/26/21 18:01 05/26/21 23:48 05/27/21 05:44 Glucose (Fingerstick) 151 mg/dL (70-99) 177 mg/dL (70-99) 200 mg/dL (70-99) White Blood Count 13.4 x10^3/uL (4.0-11.0) Red Blood Count 2.67 x10^6/uL (4.30-5.70) Hemoglobin 7.2 g/dL (13.0-17.5) Hematocrit 22.4 % (39.0-53.0) Mean Corpuscular Volume 84 fL (79-100) Mean Corpuscular Hemoglobin 27 pg (25-35) Mean Corpuscular Hemoglobin Concent 32 g/dL (31-37) Red Cell Distribution Width 17.7 % (11.5-14.5) Platelet Count 292 x10^3/uL (140-400) Neutrophils (%) (Auto) 61 % (31-73) Lymphocytes (%) (Auto) 21 % (24-48) Monocytes (%) (Auto) 12 % (0-9) Eosinophils (%) (Auto) 4 % (0-3) Basophils (%) (Auto) 1 % (0-3) Neutrophils # (Auto) 8.2 x10^3/uL (1.8-7.7) Lymphocytes # (Auto) 2.9 x10^3/uL (1.0-4.8) Monocytes # (Auto) 1.6 x10^3/uL (0.0-1.1) Eosinophils # (Auto) 0.6 x10^3/uL (0.0-0.7) Basophils # (Auto) 0.1 x10^3/uL (0.0-0.2) Test 05/27/21 05:56 Glucose (Fingerstick) 162 mg/dL (70-99) Assessment and Plan Assessmemt and Plan Problems Medical Problems: (1) Elevated troponin Status: Acute (2) Person under investigation for COVID-19 Status: Acute (3) Pulmonary edema Status: Acute Comment Review of Relevant I have reviewed the following items juanita (where applicable) has been applied. Medications: Current Medications Medications (Trade) Dose Ordered Sig/Jodie Route PRN Reason Start Time Stop Time Status Last Admin Dose Admin Sodium Chloride 90 meq/Potassium Chloride 50 meq/ Magnesium Sulfate 10 meq/Calcium Gluconate 5 meq/ Multivitamins 5 ml/Zinc/Copper/ Manganese/ Selenium 1 ml/ Total Parenteral Nutrition/Amino Acids/Dextrose/ Fat Emulsion Intravenous 1,080 ml @ 45 mls/hr TPN CONT IV 05/26/21 22:00 05/27/21 21:59 05/26/21 21:40 Justifications for Admission General Conditions Altered mental status?: Yes Justification of admission: Patient has tachycardia (> 100 beats per minute) or hypotension (SBP < 90 mm Hg) leading to inadequate systemic perfusion as indicated by severe/persistent altered mental status. Other Justification SARAH BETH ARREOLA MD May 27, 2021 08:32
--- NOTE | 2021-05-27 08:38 | PDOC ---
DATE OF SERVICE: DOS: DATE: 05/27/21 TIME: 08:33 SUBJECTIVE ROS Follow-up for ILDA plus CKD 4 with probable progression to ESRD patient remains on the vent via trach, somewhat confused, remains on TPN OBJECTIVE Vital Signs Vital Signs Date Time Temp Pulse Resp B/P (MAP) Pulse Ox O2 Delivery O2 Flow Rate FiO2 05/27/21 07:43 90 158/73 05/27/21 07:00 28 100 Ventilator 05/27/21 04:00 98.2 98.2 05/26/21 12:36 10.0 I & 0 Intake and Output 05/27/21 07:00 Intake Total 1787 ml Output Total 660 ml Balance 1127 ml IV Total 1787 ml Output Urine Total 510 ml Gastric Drainage Total 150 ml PHYSICAL EXAM Physical Exam GEN: Awake, Oriented x ?, In no visible distress EYES: Vision Unchanged, Conjunctiva Normal EN: No EN Drainage, Mucous Membranes NECK: no JVD, no JVP, Supple, no Thyromegaly, Trached and on the vent CVS: S1S2, ? Murmur, No Gallop, No Rub,+2-3 Edema RESP: Rare basal Rales, no rhonchi, no Acc. Muscle Use GI: BS + ve, NO Bruit, Non Tender, Non Distended : no CVA tenderness, no Suprapubic Tenderness DIAGNOSIS/ASSESSMENT Assessment & Plan ESRD versus ARF plus CKD 4: Current fluid and E-lyte status does not necessitate emergent need for dialysis. Will re-evaluate for dialysis in the am Lower extremity edema: IV Lasix will be started, continue ultrafiltration on dialysis ANEMIA; ? Aranap may need to be ordered, Transfuse with next HD as needed when less than 7 HTN: Possibly due to fluid aspect, IV diuresis to be initiated. Oral home BP meds unable to be administered at this time due to inability to take p.o. Remains on as needed IV medications. Nutrition: Remains on TPN for now, will need aggressive ultrafiltration on dialysis Permacath in the morning if cleared by ID Discussed Plan of Care with ICU nurse at bedside COMMENT/RELEVANT DATA Meds Current Medications Medications (Trade) Dose Ordered Sig/Jodie Start Time Stop Time Status Last Admin Dose Admin Acetaminophen (Tylenol) 650 mg PRN Q6HRS PRN 04/24/21 14:00 Cancel Albumin Human 200 ml @ 200 mls/hr 1X PRN PRN 05/26/21 07:15 05/26/21 13:14 DC Amiodarone HCl (Cordarone) 200 mg DAILY 04/28/21 09:00 05/22/21 16:27 DC 05/21/21 11:07 200 MG Amiodarone HCl 150 mg/Dextrose 103 ml @ 618 mls/hr 1X ONCE 04/27/21 02:30 04/27/21 02:39 DC 04/27/21 02:30 618 MLS/HR Amiodarone HCl 450 mg/Dextrose 259 ml @ 0 mls/hr 1X ONCE 05/22/21 16:30 05/22/21 16:34 DC 05/22/21 16:59 33 MLS/HR Amlodipine Besylate (Norvasc) 10 mg DAILY 05/16/21 09:00 05/21/21 11:17 10 MG Aspirin (Aspirin Chewable) 81 mg DAILYWBKFT 05/03/21 10:00 05/21/21 11:07 81 MG Aspirin (Ecotrin) 81 mg DAILYWBKFT 04/25/21 08:00 05/03/21 09:56 DC 05/02/21 07:20 81 MG Atorvastatin Calcium (Lipitor) 80 mg QHS 04/24/21 21:00 05/23/21 19:58 80 MG Bisacodyl (Dulcolax Supp) 10 mg PRN DAILY PRN 04/24/21 14:00 Bupivacaine HCl/ Epinephrine Bitart (Sensorcain-Epi 0.5%-1:[id number] Mpf) 30 ml STK-MED ONCE 05/15/21 07:05 05/15/21 07:06 DC Carvedilol (Coreg) 3.125 mg BIDWMEALS 04/24/21 17:00 04/25/21 15:42 DC 04/25/21 09:23 3.125 MG Cefepime HCl (Maxipime) 1 gm Q24H 05/04/21 16:00 05/11/21 07:24 DC 05/10/21 16:31 1 GM Cellulose (Surgicel Fibrillar 1x2) 1 each STK-MED ONCE 05/15/21 07:05 05/15/21 07:06 DC 05/15/21 09:40 1 EACH Chlorhexidine Gluconate (Peridex) 15 ml BID 04/24/21 21:00 04/25/21 11:19 DC 04/24/21 20:49 15 ML Daptomycin 600 mg/ Sodium Chloride 50 ml @ 100 mls/hr Q48H 05/04/21 15:00 05/06/21 08:07 DC 05/04/21 15:24 100 MLS/HR Dexamethasone Sodium Phosphate (Decadron) 4 mg STK-MED ONCE 05/15/21 07:53 05/15/21 07:53 DC Dexmedetomidine HCl 400 mcg/ Sodium Chloride 100 ml @ 0 mls/hr CONT PRN 05/04/21 10:30 05/27/21 07:38 26.2 MLS/HR Dextrose (Dextrose 50%-Water Syringe) 12.5 gm PRN Q15MIN PRN 05/03/21 14:00 Digoxin (Lanoxin) 250 mcg 1X ONCE 04/26/21 13:00 04/26/21 13:05 DC 04/26/21 15:02 250 MCG Ephedrine Sulfate (ePHEDrine PF IN SALINE SYRINGE) 50 mg STK-MED ONCE 05/15/21 09:15 05/15/21 09:15 DC Erythromycin (Romycin) 0.25 inch BID 05/17/21 12:00 05/25/21 13:24 DC 05/25/21 07:43 0.25 INCH Etomidate (Amidate) 20 mg STK-MED ONCE 04/24/21 13:38 04/24/21 13:38 DC Fentanyl Citrate 30 ml @ 0 mls/hr CONT PRN 04/24/21 14:00 05/27/21 06:00 2.5 MLS/HR Fentanyl Citrate (Fentanyl 2ml Vial) 25 mcg PRN Q1HR PRN 04/24/21 14:00 05/17/21 16:12 25 MCG Furosemide (Lasix) 80 mg 1X ONCE 05/23/21 10:45 05/23/21 10:46 DC 05/23/21 13:18 80 MG Heparin Sodium (Porcine) (Heparin Sodium) 5,000 unit Q8HRS 05/18/21 10:00 05/27/21 05:59 5,000 UNIT Heparin Sodium/ Dextrose 250 ml @ 0 mls/hr CONT PRN 04/24/21 16:45 05/01/21 12:32 DC 05/01/21 05:10 10 MLS/HR Hydralazine HCl (Apresoline Inj) 10 mg PRN QID PRN 05/22/21 16:30 05/27/21 07:43 10 MG Hydralazine HCl (Apresoline) 25 mg QID 05/10/21 10:00 05/22/21 16:27 DC 05/21/21 17:24 25 MG Info (Anti-Coagulation Monitoring By Pharmacy) 1 each PRN DAILY PRN 04/25/21 13:00 05/02/21 07:36 DC 04/26/21 08:51 1 EACH Info (PHARMACY MONITORING -- do not chart) 1 each PRN DAILY PRN 05/26/21 07:15 Info (Tpn Per Pharmacy) 1 each PRN DAILY PRN 05/22/21 10:00 05/26/21 11:04 1 EACH Insulin Glargine (Lantus Syringe) 15 unit QHS 05/25/21 21:00 05/26/21 21:41 15 UNIT Insulin Human Lispro (HumaLOG) 0-5 UNITS Q6HRS 05/03/21 18:00 05/27/21 05:59 2 UNITS Labetalol HCl (Normodyne Iv Push) 20 mg PRN Q2HR PRN 05/01/21 12:30 05/26/21 16:35 20 MG Lidocaine HCl (Buffered Lidocaine 1%) 3 ml 1X ONCE 04/27/21 11:15 04/27/21 11:16 DC 04/27/21 11:15 3 ML Lidocaine HCl (Lidocaine Pf 2% Vial) 5 ml STK-MED ONCE 05/15/21 07:53 05/15/21 07:53 DC Linezolid/Dextrose 300 ml @ 300 mls/hr Q12HR 05/11/21 09:00 05/18/21 09:17 DC 05/17/21 21:45 300 MLS/HR Lorazepam (Ativan Inj) 0.25 mg PRN Q4HRS PRN 05/21/21 09:00 05/26/21 22:16 0.25 MG Magnesium Sulfate 50 ml @ 25 mls/hr 1X ONCE 05/22/21 11:30 05/22/21 13:29 UNV Meropenem 500 mg/ Sodium Chloride 50 ml @ 100 mls/hr DAILY 05/23/21 09:00 05/25/21 11:55 DC 05/25/21 07:42 100 MLS/HR Metoprolol Tartrate (Lopressor Vial) 5 mg Q6HRS 04/25/21 18:00 05/27/21 05:58 5 MG Midazolam HCl (Versed) 5 mg 1X ONCE 05/24/21 15:15 05/24/21 15:16 DC 05/24/21 15:20 5 MG Montelukast Sodium (Singulair) 10 mg HS 04/24/21 21:00 05/23/21 19:58 10 MG Multi-Ingred Cream/Lotion/Oil/ Oint (Artificial Tears Eye Ointment) 1 danielito PRN Q1HR PRN 05/07/21 16:00 05/10/21 20:51 1 DANIELITO Nicardipine HCl 50 mg/Sodium Chloride 250 ml @ 25 mls/hr CONT PRN 05/06/21 18:45 05/20/21 19:47 37.5 MLS/HR Norepinephrine Bitartrate 8 mg/ Dextrose 258 ml @ 25.852 mls/ hr CONT PRN 05/02/21 21:00 05/09/21 06:10 DC 05/02/21 21:22 25.852 MLS/HR Nystatin (Nystop) 1 danielito BID 05/16/21 21:00 05/26/21 21:39 1 DANIELITO Ondansetron HCl (Zofran) 4 mg STK-MED ONCE 05/15/21 07:53 05/15/21 07:53 DC Pantoprazole Sodium (PROTONIX VIAL for IV PUSH) 40 mg DAILYAC 04/26/21 09:30 05/27/21 07:38 40 MG Phenylephrine HCl (PHENYLEPHRINE in 0.9% NACL PF) 1 mg STK-MED ONCE 05/15/21 07:51 05/15/21 07:51 DC Potassium Bicarbonate (Potassium Effervescent Tablet) 40 meq 1X ONCE 05/19/21 08:30 05/19/21 08:31 DC 05/19/21 08:50 40 MEQ Potassium Chloride/Water 100 ml @ 100 mls/hr Q1H 05/23/21 10:45 05/23/21 12:44 DC 05/23/21 13:17 100 MLS/HR Potassium Phosphate 20 mmol/ Sodium Chloride 256.6667 ml @ 62.5 mls/hr 1X ONCE 05/13/21 12:15 05/13/21 16:21 UNV Potassium Phosphate 30 mmol/ Sodium Chloride 260 ml @ 62.5 mls/hr 1X ONCE 05/13/21 12:15 05/13/21 16:24 UNV Prochlorperazine Edisylate (Compazine) 5 mg PACU PRN PRN 05/15/21 06:00 05/16/21 05:59 DC Propofol (Diprivan) 200 mg STK-MED ONCE 05/15/21 07:53 05/15/21 07:53 DC Remdesivir 100 mg/ Sodium Chloride 230 ml @ 460 mls/hr Q24H 04/26/21 17:30 04/29/21 17:59 DC 04/29/21 13:51 460 MLS/HR Remdesivir 200 mg/ Sodium Chloride 210 ml @ 210 mls/hr 1X ONCE 04/25/21 17:30 04/25/21 18:29 DC 04/25/21 17:09 210 MLS/HR Ringer's Solution 1,000 ml @ 30 mls/hr Q24H 05/15/21 06:00 05/15/21 17:59 DC 05/15/21 07:04 30 MLS/HR Rocuronium Agra (Zemuron) 50 mg STK-MED ONCE 05/15/21 07:06 05/15/21 07:07 DC Sodium Bicarbonate (Sodium Bicarb Adult 8.4% Syr) 50 meq 1X ONCE 04/27/21 09:45 04/27/21 09:46 DC 04/27/21 09:50 50 MEQ Sodium Chloride (Normal Saline Flush) 10 ml 1X PRN PRN 05/04/21 07:30 05/05/21 07:29 DC Sodium Chloride 90 meq/Potassium Chloride 25 meq/ Magnesium Sulfate 10 meq/Calcium Gluconate 5 meq/ Multivitamins 5 ml/Zinc/Copper/ Manganese/ Selenium 1 ml/ Total Parenteral Nutrition/Amino Acids/Dextrose/ Fat Emulsion Intravenous 1,080 ml @ 45 mls/hr TPN CONT 05/22/21 22:00 05/23/21 21:59 DC 05/22/21 21:22 45 MLS/HR Sodium Chloride 90 meq/Potassium Chloride 50 meq/ Magnesium Sulfate 10 meq/Calcium Gluconate 5 meq/ Multivitamins 5 ml/Zinc/Copper/ Manganese/ Selenium 1 ml/ Total Parenteral Nutrition/Amino Acids/Dextrose/ Fat Emulsion Intravenous 1,080 ml @ 45 mls/hr TPN CONT 05/26/21 22:00 05/27/21 21:59 05/26/21 21:40 45 MLS/HR Succinylcholine Chloride (Anectine) 200 mg STK-MED ONCE 04/24/21 13:38 04/24/21 13:38 DC Vecuronium Agra (Norcuron Bolus) 6 mg PRN Q6HRS PRN 04/30/21 11:15 05/14/21 09:12 6 MG Lab Laboratory Tests Test 05/26/21 14:33 05/26/21 18:01 05/26/21 23:48 05/27/21 05:44 Glucose (Fingerstick) 151 mg/dL (70-99) 177 mg/dL (70-99) 200 mg/dL (70-99) White Blood Count 13.4 x10^3/uL (4.0-11.0) Red Blood Count 2.67 x10^6/uL (4.30-5.70) Hemoglobin 7.2 g/dL (13.0-17.5) Hematocrit 22.4 % (39.0-53.0) Mean Corpuscular Volume 84 fL (79-100) Mean Corpuscular Hemoglobin 27 pg (25-35) Mean Corpuscular Hemoglobin Concent 32 g/dL (31-37) Red Cell Distribution Width 17.7 % (11.5-14.5) Platelet Count 292 x10^3/uL (140-400) Neutrophils (%) (Auto) 61 % (31-73) Lymphocytes (%) (Auto) 21 % (24-48) Monocytes (%) (Auto) 12 % (0-9) Eosinophils (%) (Auto) 4 % (0-3) Basophils (%) (Auto) 1 % (0-3) Neutrophils # (Auto) 8.2 x10^3/uL (1.8-7.7) Lymphocytes # (Auto) 2.9 x10^3/uL (1.0-4.8) Monocytes # (Auto) 1.6 x10^3/uL (0.0-1.1) Eosinophils # (Auto) 0.6 x10^3/uL (0.0-0.7) Basophils # (Auto) 0.1 x10^3/uL (0.0-0.2) Test 05/27/21 05:56 Glucose (Fingerstick) 162 mg/dL (70-99) Results All relevant outside records, renal labs, imaging studies, telemetry/EKG's were reviewed. Justicifation of Admission Dx: Justifications for Admission: Justification of Admission Dx: Yes Aspiration Pneumonia: Hemodynamic Instability DEREK RIVERO MD May 27, 2021 08:37
--- NOTE | 2021-05-27 08:56 | PDOC ---
Infectious Disease Note Subjective: Subjective Pt remains vent dependent Afebrile Vital Signs: Vital Signs Vital Signs Date Time Temp Pulse Resp B/P (MAP) Pulse Ox O2 Delivery O2 Flow Rate FiO2 05/27/21 07:43 90 158/73 05/27/21 07:00 28 100 Ventilator 05/27/21 04:00 98.2 98.2 05/26/21 12:36 10.0 Physical Exam: PHYSICAL EXAM GENERAL: Well-developed and well-nourished male, sedated HEENT: Normocephalic, atraumatic, redness and erythema of both eyes improved, NG tube present NECK: right dialysis catheter present clean,central line changed ( 05/11) Trach + HEART: S1, S2. LUNGS: Decreased breath sounds. ABDOMEN: distended,hypoactive BS GENITOURINARY: Nieves in place. EXTREMITIES: Edema present. DERMATOLOGIC: Warm, dry, no generalized rash. NEUROLOGIC: Opens eyes PICC line clean Medications: Inpatient Meds: Medications reviewed. Labs: Lab Laboratory Tests Test 05/26/21 14:33 05/26/21 18:01 05/26/21 23:48 05/27/21 05:44 Glucose (Fingerstick) 151 mg/dL (70-99) 177 mg/dL (70-99) 200 mg/dL (70-99) White Blood Count 13.4 x10^3/uL (4.0-11.0) Red Blood Count 2.67 x10^6/uL (4.30-5.70) Hemoglobin 7.2 g/dL (13.0-17.5) Hematocrit 22.4 % (39.0-53.0) Mean Corpuscular Volume 84 fL (79-100) Mean Corpuscular Hemoglobin 27 pg (25-35) Mean Corpuscular Hemoglobin Concent 32 g/dL (31-37) Red Cell Distribution Width 17.7 % (11.5-14.5) Platelet Count 292 x10^3/uL (140-400) Neutrophils (%) (Auto) 61 % (31-73) Lymphocytes (%) (Auto) 21 % (24-48) Monocytes (%) (Auto) 12 % (0-9) Eosinophils (%) (Auto) 4 % (0-3) Basophils (%) (Auto) 1 % (0-3) Neutrophils # (Auto) 8.2 x10^3/uL (1.8-7.7) Lymphocytes # (Auto) 2.9 x10^3/uL (1.0-4.8) Monocytes # (Auto) 1.6 x10^3/uL (0.0-1.1) Eosinophils # (Auto) 0.6 x10^3/uL (0.0-0.7) Basophils # (Auto) 0.1 x10^3/uL (0.0-0.2) Test 05/27/21 05:56 Glucose (Fingerstick) 162 mg/dL (70-99) Objective: Assessment: 1. Febrile illnessresolved 2. Leukocytosis, was on steroids,ileus could contribute,improving 3. COVID-19 pneumonia. 4. Acute hypoxic respiratory failure status post intubation.Now S/P Trach 05/15 5. Congestive heart failure, acute on chronic. 6. Acute kidney injury on chronic kidney disease on hemodialysis. 7. Diabetes mellitus 2. 8. Atrial fibrillation. 9. Anemia. 10. Protein-calorie malnutrition. 11. Hypertention 12.Hyponatremia 13. Ileus, Bowel obstruction Peg TF on hold, OG to LIS 14.on PPN 15.Mild to Moderate Pleural effusion 16.Lt eye conjunctivitis resolved Plan: Plan of Care 1. Monitor off Merrem ( 05/25) Cultures negative 2. Follow-up labs and cultures. 3. Central line changed on 05/11,C. difficile PCR negative 4. Continue supportive care. 5 cont local eye care Remains critically ill ALAYNA RIVERO MD May 27, 2021 08:56
[2021-05-27] MEDS: NYSTATIN TOPICAL POWDER 15GM BOTTLE. TP SCH ×2 (10:35→22:01)
[2021-05-27] MEDS: FUROSEMIDE 40 MG/4 ML VIAL. IVP SCH ×3 (10:36→22:01)
[2021-05-27] MEDS: TPN PER PHARMACY MC PRN (10:55)
--- NOTE | 2021-05-27 10:55 | NUR ---
Pharmacy TPN Dosing Note S: NILAM LAN is a 75 year old M Currently receiving Central Continuous TPN started 05/22/21 B:Pertinent PMH: ILEUS Height: 6 feet, 2 inches Weight: 149.5 kg Current diet: NPO LABS: Sodium: 140 Potassium: 3.6 Chloride: 107 Calcium: 8.3 Corrected Calcium: 10.38 Magnesium: 2.1 CO2: 28 SCr: 1.8 Glucose: 177, 200, 162 Albumin: 1.4 AST: 25 ALT: 16 TPN FORMULA: TPN TYPE: Central Continuous AMINO ACIDS: 60 gm DEXTROSE: 195 gm LIPIDS: 20 gm SODIUM CHLORIDE: 90 mEq POTASSIUM CHLORIDE: 50 mEq MAGNESIUM: 10 mEq CALCIUM: 5 mEq MULTIPLE VITAMIN: 5 ml TRACE ELEMENTS: 1 ml TPN PLAN: -Patient requiring high dose of Lasix, will reduce TPN total volume. -CMP, mag, phos, TG tomorrow. R: Change TPN to 40 ml/hr and above formula. Will monitor electrolytes, glucose, and tolerance to TPN. PHILIPPE OROPEZA [facility], 05/27/21 [id number]
[2021-05-27] MEDS: LABETALOL 20 MG/4 ML DISP.SYRIN. IVP PRN (15:43)
--- NOTE | 2021-05-27 15:44 | EKG ---
[facility] [address] [place] [address] Test Date: 2021-05-27 Test Time: 15:43:38 Pat Name: NILAM LAN Department: Room: 104 1 Gender: M [employer] Analyst: : [id number] Requested By: SARAH BETH CARRASCO Order Number: [id number] Reading MD: Measurements Intervals [place] Rate: 73 P: IL: QRS: 50 QRSD: 112 T: -132 QT: 396 QTc: 440 Interpretive Statements ATRIAL FLUTTER VENTRICULAR PREMATURE COMPLEX(ES) ST & T ABNORMALITY, CONSIDER INFEROLATERAL ISCHEMIA OR LEFT VENTRICULAR STRAIN ABNORMAL ECG RI6.01 Compared to ECG 04/27/2021 01:12:16 T-wave abnormality now present Possible ischemia now present Left-axis deviation no longer present Left anterior fascicular block no longer present Right ventricular hypertrophy no longer present Early repolarization no longer present
[2021-05-27] MEDS: ATORVASTATIN CALCIUM 40 MG TABLET. PO SCH (21:00)
[2021-05-27] MEDS: MONTELUKAST SODIUM 10 MG TABLET. PO SCH (21:00)
[2021-05-27] MEDS ORDERED: AMINO ACID IV SCH (22:00)
[2021-05-27] MEDS ORDERED: [UNRECOGNIZED DRUG - OTHER] IV SCH (22:00)
[2021-05-27] MEDS ORDERED: DEXTROSE 70% IV SCH (22:00)
[2021-05-27] MEDS ORDERED: TOTAL PARENTERAL NUTRITION IV SCH (22:00)
[2021-05-27] MEDS: INSULIN GLARGINE SYRINGE. SQ SCH (22:01)
[2021-05-28] VITALS (30 sets, daily range): BP systolic 102–220; BP diastolic 47–98
[2021-05-28] MEDS: METOPROLOL IV PUSH 5 MG/5 ML VIAL. IVP SCH ×5 (01:08→23:36)
[2021-05-28] MEDS: DEXMEDETOMIDINE 400 MCG in IV NORMAL SALINE 100ML 96 ML IV PRN ×9 (01:57→23:37)
[2021-05-28] MEDS: HEPARIN for SUB-Q USE 5,000 UNIT/ML VIAL. SQ SCH ×3 (05:50→21:15)
[2021-05-28 06:02] LABS: ALBUMIN 1.6 g/dL (3.4-5.0); ALBUMIN/GLOBULIN RATIO 0.3 (1.0-1.7); CREATININE 1.8 mg/dL (0.7-1.3); GFR 44.9; PHOSPHORUS 1.6 mg/dL (2.6-4.7); POTASSIUM 4.3 mmol/L (3.5-5.1); TOTAL BILIRUBIN 0.5 mg/dL (0.2-1.0); TOTAL PROTEIN 6.2 g/dL (6.4-8.2)
[2021-05-28 06:24] LABS: BASO # 0.1 x10^3/uL (0.0-0.2); BASO % 1 % (0-3); EOS # 0.7 x10^3/uL (0.0-0.7); EOS % 5 % (0-3); HEMATOCRIT 25.7 % (39.0-53.0); HEMOGLOBIN 8.2 g/dL (13.0-17.5); LYMPH # 3.4 x10^3/uL (1.0-4.8); LYMPH % 22 % (24-48); MEAN CORPUSCULAR HEMOGLOBIN 27 pg (25-35); MEAN CORPUSCULAR HGB CONC 32 g/dL (31-37); MEAN CORPUSCULAR VOLUME 84 fL (79-100); MONO # 1.7 x10^3/uL (0.0-1.1); MONO % 11 % (0-9); NEUT # 9.1 x10^3/uL (1.8-7.7); NEUT % 61 % (31-73); PLATELET COUNT 391 x10^3/uL (140-400); RED BLOOD COUNT 3.07 x10^6/uL (4.30-5.70); RED CELL DISTRIBUTION WIDTH 18.6 % (11.5-14.5)
[2021-05-28] MEDS: INSULIN LISPRO 300 UNITS/3 ML VIAL. SQ SCH ×5 (06:29→23:39)
--- NOTE | 2021-05-28 06:58 | PDOC ---
PULMONARY PROGRESS NOTES DATE: 05/28/21 TIME: 06:55 Subjective Remains on PS 10/5,40%. Ongoing gastric tube to LIS, ileus No overnight concerns from nursing Vitals Vital Signs Date Time Temp Pulse Resp B/P (MAP) Pulse Ox O2 Delivery O2 Flow Rate FiO2 05/28/21 06:00 88 21 178/85 (116) 100 Ventilator 05/28/21 04:00 98.2 98.2 05/27/21 17:09 10.0 Comments Tracheostomy/sedation, unable to report HEENT: Other (Trachea midline) Lungs: Crackles Cardiovascular: S1, S2 Abdomen: Soft Extremities: No Edema Skin: Warm Labs Laboratory Tests Test 05/26/21 14:33 05/26/21 18:01 05/26/21 23:48 05/27/21 05:44 Glucose (Fingerstick) 151 mg/dL (70-99) 177 mg/dL (70-99) 200 mg/dL (70-99) White Blood Count 13.4 x10^3/uL (4.0-11.0) Red Blood Count 2.67 x10^6/uL (4.30-5.70) Hemoglobin 7.2 g/dL (13.0-17.5) Hematocrit 22.4 % (39.0-53.0) Mean Corpuscular Volume 84 fL (79-100) Mean Corpuscular Hemoglobin 27 pg (25-35) Mean Corpuscular Hemoglobin Concent 32 g/dL (31-37) Red Cell Distribution Width 17.7 % (11.5-14.5) Platelet Count 292 x10^3/uL (140-400) Neutrophils (%) (Auto) 61 % (31-73) Lymphocytes (%) (Auto) 21 % (24-48) Monocytes (%) (Auto) 12 % (0-9) Eosinophils (%) (Auto) 4 % (0-3) Basophils (%) (Auto) 1 % (0-3) Neutrophils # (Auto) 8.2 x10^3/uL (1.8-7.7) Lymphocytes # (Auto) 2.9 x10^3/uL (1.0-4.8) Monocytes # (Auto) 1.6 x10^3/uL (0.0-1.1) Eosinophils # (Auto) 0.6 x10^3/uL (0.0-0.7) Basophils # (Auto) 0.1 x10^3/uL (0.0-0.2) Test 05/27/21 05:56 05/27/21 11:38 05/27/21 17:57 05/28/21 00:11 Glucose (Fingerstick) 162 mg/dL (70-99) 155 mg/dL (70-99) 179 mg/dL (70-99) 147 mg/dL (70-99) Test 05/28/21 05:37 White Blood Count 15.0 x10^3/uL (4.0-11.0) Red Blood Count 3.07 x10^6/uL (4.30-5.70) Hemoglobin 8.2 g/dL (13.0-17.5) Hematocrit 25.7 % (39.0-53.0) Mean Corpuscular Volume 84 fL (79-100) Mean Corpuscular Hemoglobin 27 pg (25-35) Mean Corpuscular Hemoglobin Concent 32 g/dL (31-37) Red Cell Distribution Width 18.6 % (11.5-14.5) Platelet Count 391 x10^3/uL (140-400) Neutrophils (%) (Auto) 61 % (31-73) Lymphocytes (%) (Auto) 22 % (24-48) Monocytes (%) (Auto) 11 % (0-9) Eosinophils (%) (Auto) 5 % (0-3) Basophils (%) (Auto) 1 % (0-3) Neutrophils # (Auto) 9.1 x10^3/uL (1.8-7.7) Lymphocytes # (Auto) 3.4 x10^3/uL (1.0-4.8) Monocytes # (Auto) 1.7 x10^3/uL (0.0-1.1) Eosinophils # (Auto) 0.7 x10^3/uL (0.0-0.7) Basophils # (Auto) 0.1 x10^3/uL (0.0-0.2) Sodium Level 141 mmol/L (136-145) Potassium Level 4.3 mmol/L (3.5-5.1) Chloride Level 107 mmol/L (98-107) Carbon Dioxide Level 30 mmol/L (21-32) Anion Gap 4 (6-14) Blood Urea Nitrogen 23 mg/dL (8-26) Creatinine 1.8 mg/dL (0.7-1.3) Estimated GFR (Cockcroft-Gault) 44.9 BUN/Creatinine Ratio 13 (6-20) Glucose Level 158 mg/dL (70-99) Calcium Level 9.0 mg/dL (8.5-10.1) Phosphorus Level 1.6 mg/dL (2.6-4.7) Magnesium Level 2.0 mg/dL (1.8-2.4) Total Bilirubin 0.5 mg/dL (0.2-1.0) Aspartate Amino Transf (AST/SGOT) 27 U/L (15-37) Alanine Aminotransferase (ALT/SGPT) 19 U/L (16-63) Alkaline Phosphatase 85 U/L (46-116) Total Protein 6.2 g/dL (6.4-8.2) Albumin 1.6 g/dL (3.4-5.0) Albumin/Globulin Ratio 0.3 (1.0-1.7) Triglycerides Level 123 mg/dL (0-150) Laboratory Tests Test 05/27/21 11:38 05/27/21 17:57 05/28/21 00:11 05/28/21 05:37 Glucose (Fingerstick) 155 mg/dL (70-99) 179 mg/dL (70-99) 147 mg/dL (70-99) White Blood Count 15.0 x10^3/uL (4.0-11.0) Red Blood Count 3.07 x10^6/uL (4.30-5.70) Hemoglobin 8.2 g/dL (13.0-17.5) Hematocrit 25.7 % (39.0-53.0) Mean Corpuscular Volume 84 fL (79-100) Mean Corpuscular Hemoglobin 27 pg (25-35) Mean Corpuscular Hemoglobin Concent 32 g/dL (31-37) Red Cell Distribution Width 18.6 % (11.5-14.5) Platelet Count 391 x10^3/uL (140-400) Neutrophils (%) (Auto) 61 % (31-73) Lymphocytes (%) (Auto) 22 % (24-48) Monocytes (%) (Auto) 11 % (0-9) Eosinophils (%) (Auto) 5 % (0-3) Basophils (%) (Auto) 1 % (0-3) Neutrophils # (Auto) 9.1 x10^3/uL (1.8-7.7) Lymphocytes # (Auto) 3.4 x10^3/uL (1.0-4.8) Monocytes # (Auto) 1.7 x10^3/uL (0.0-1.1) Eosinophils # (Auto) 0.7 x10^3/uL (0.0-0.7) Basophils # (Auto) 0.1 x10^3/uL (0.0-0.2) Sodium Level 141 mmol/L (136-145) Potassium Level 4.3 mmol/L (3.5-5.1) Chloride Level 107 mmol/L (98-107) Carbon Dioxide Level 30 mmol/L (21-32) Anion Gap 4 (6-14) Blood Urea Nitrogen 23 mg/dL (8-26) Creatinine 1.8 mg/dL (0.7-1.3) Estimated GFR (Cockcroft-Gault) 44.9 BUN/Creatinine Ratio 13 (6-20) Glucose Level 158 mg/dL (70-99) Calcium Level 9.0 mg/dL (8.5-10.1) Phosphorus Level 1.6 mg/dL (2.6-4.7) Magnesium Level 2.0 mg/dL (1.8-2.4) Total Bilirubin 0.5 mg/dL (0.2-1.0) Aspartate Amino Transf (AST/SGOT) 27 U/L (15-37) Alanine Aminotransferase (ALT/SGPT) 19 U/L (16-63) Alkaline Phosphatase 85 U/L (46-116) Total Protein 6.2 g/dL (6.4-8.2) Albumin 1.6 g/dL (3.4-5.0) Albumin/Globulin Ratio 0.3 (1.0-1.7) Triglycerides Level 123 mg/dL (0-150) Medications Active Scripts Medications Dose Route/Sig Max Daily Dose Days Date Category Glyburide 2.5 Mg Tablet 1 Tab PO DAILY 04/19/21 Rx Polyethylene Glycol 3350 17 Gm Powd.pack 17 Gm PO DAILY 04/19/21 Rx Dok (Docusate Sodium) 100 Mg Capsule 100 Mg PO PRN DAILY PRN 30 04/19/21 Rx Bisacodyl 5 Mg Tablet. 5 Mg PO PRN DAILY PRN 14 04/19/21 Rx Acetaminophen 325 Mg Tablet 650 Mg PO PRN Q4HRS PRN 14 04/19/21 Rx Aspirin Ec (Aspirin) 81 Mg Tablet. 81 Mg PO DAILYWBKFT 30 04/19/21 Rx Hydralazine Hcl 25 Mg Tablet 25 Mg PO QID 30 04/19/21 Rx Fenofibrate 54 Mg Tablet 1 Tab PO DAILY 04/17/21 Reported Potassium Chloride (Potassium Chloride) 20 Meq Tablet.er 20 Meq PO DAILY 04/17/21 Reported Coreg (Carvedilol) 12.5 Mg Tablet 37.5 Mg PO BIDWMEALS 04/17/21 Reported Rosuvastatin Calcium 40 Mg Tablet 40 Mg PO QHS 04/17/21 Reported Gabapentin (Gabapentin) 100 Mg Capsule 200 Mg PO BID 04/17/21 Reported Montelukast Sodium Tablet (Montelukast Sodium) 10 Mg Tablet 10 Mg PO HS 04/17/21 Reported Protonix (Pantoprazole Sodium) 20 Mg Tablet.dr 2 Tab PO DAILY 04/17/21 Reported Amlodipine Besylate 5 Mg Tablet 5 Mg PO DAILY 04/17/21 Reported Furosemide 40 Mg Tablet 1 Tab PO DAILY 04/17/21 Reported Proair Hfa Inhaler (Albuterol Sulfate) 8.5 Gm Hfa.aer.ad 2 Puff IH PRN Q4-6HRS PRN 21 04/16/21 Reported Advair 100-50 Diskus (Fluticasone/Salmeterol) 1 Each Disk.w.dev 1 Puff IH BID 04/16/21 Reported Comments Chest x-ray reviewed by me dated 05/23/2021. Minimal left basal effusion/atelectasis. Impression . IMPRESSION: 1. Acute hypoxic respiratory failure, multifactorial/COVID-19 viral pneumonia/ARDS, ongoing, intubated 04/25/2021, now status post tracheostomy 05/15/[address] chest with bilateral diffuse interstitial infiltrates without any significant pleural effusion 3. Leukocytosis, sepsis--improved 4. Non-ST segment elevation [place] 5. History of tobacco use, suspect COPD, unknown FEV1 6. Chronic kidney disease.== HD on hold 7. Metabolic acidosis multifactorial 8. Abnormal chest x-ray 9. Hypoglycemia, continue to monitor--- resolved 10. Hypotension, suspect volume deficit,/possible sepsis--- resolved 11. Fever--improved 12. Anemia--improved 13. Atrial fibrillation with rapid ventricular response, currently rate controlled 14. Ileus Plan . Updated 05/28/21 Continue current vent support, currently on PS 10/5 40%, tolerating well, weaning during the day as tolerated Patient is a very difficult patient for weaning secondary to increased agitation and hypertension with reduction of sedation S/P trach 05/15/2021 Follow ABG/CXR--changes as needed Follow GI recs-- ileus, PEG tube on hold Follow nephrology recs-- Follow infectious disease recommendations Continue TPN for nutritional support DVT/GI PPX: sq heparin D/W RN and RT Pt. is DNR CC time 30 minutes Updated 05/27/21 Continue current vent support, currently on PS 10/5 40%, tolerating well, PS/w eaning during the day as tolerated S/P trach 05/15/2021 decrease sedation as tolerated Continue multi antihypertensive medications for control of blood pressure. Follow ABG/CXR--changes as needed Follow ID recs for ABX Follow GI recs-- ileus, PEG tube on hold, ng secretion decreasing Follow nephrology recs-- had hd 05/26 hd per nephro Follow Cardiology recs-- Continue TPN for nutritional support. Patient has ongoing ileus. DVT/GI PPX: sq heparin D/W RN and RT Pt. is DNR JONES FISHMAN MD May 28, 2021 06:58
[2021-05-28] MEDS: NYSTATIN TOPICAL POWDER 15GM BOTTLE. TP SCH ×2 (07:54→21:13)
[2021-05-28] MEDS: PANTOPRAZOLE IV PUSH 40 MG VIAL. IVP SCH (07:54)
[2021-05-28] MEDS: FUROSEMIDE 40 MG/4 ML VIAL. IVP SCH ×3 (07:54→21:13)
[2021-05-28] MEDS: ASPIRIN CHEWABLE 81 MG TABLET. PO SCH (08:00)
--- NOTE | 2021-05-28 08:21 | PDOC ---
Infectious Disease Note Subjective: Subjective Pt remains vent dependent Afebrile Awaiting permacath placement Discussed with nursing staff Vital Signs: Vital Signs Vital Signs Date Time Temp Pulse Resp B/P (MAP) Pulse Ox O2 Delivery O2 Flow Rate FiO2 05/28/21 07:50 99 Ventilator 05/28/21 07:00 56 21 106/55 (72) 05/28/21 04:00 98.2 98.2 05/27/21 17:09 10.0 Physical Exam: PHYSICAL EXAM GENERAL: Well-developed and well-nourished male, sedated HEENT: Normocephalic, atraumatic, redness and erythema of both eyes improved, NG tube present NECK: right dialysis catheter present clean,central line changed ( 05/11) Trach + HEART: S1, S2. LUNGS: Decreased breath sounds. ABDOMEN: distended,hypoactive BS GENITOURINARY: Nieves in place. EXTREMITIES: Edema present. DERMATOLOGIC: Warm, dry, no generalized rash. NEUROLOGIC: Opens eyes PICC line clean Medications: Inpatient Meds: Medications reviewed. Labs: Lab Laboratory Tests Test 05/27/21 11:38 05/27/21 17:57 05/28/21 00:11 05/28/21 05:37 Glucose (Fingerstick) 155 mg/dL (70-99) 179 mg/dL (70-99) 147 mg/dL (70-99) White Blood Count 15.0 x10^3/uL (4.0-11.0) Red Blood Count 3.07 x10^6/uL (4.30-5.70) Hemoglobin 8.2 g/dL (13.0-17.5) Hematocrit 25.7 % (39.0-53.0) Mean Corpuscular Volume 84 fL (79-100) Mean Corpuscular Hemoglobin 27 pg (25-35) Mean Corpuscular Hemoglobin Concent 32 g/dL (31-37) Red Cell Distribution Width 18.6 % (11.5-14.5) Platelet Count 391 x10^3/uL (140-400) Neutrophils (%) (Auto) 61 % (31-73) Lymphocytes (%) (Auto) 22 % (24-48) Monocytes (%) (Auto) 11 % (0-9) Eosinophils (%) (Auto) 5 % (0-3) Basophils (%) (Auto) 1 % (0-3) Neutrophils # (Auto) 9.1 x10^3/uL (1.8-7.7) Lymphocytes # (Auto) 3.4 x10^3/uL (1.0-4.8) Monocytes # (Auto) 1.7 x10^3/uL (0.0-1.1) Eosinophils # (Auto) 0.7 x10^3/uL (0.0-0.7) Basophils # (Auto) 0.1 x10^3/uL (0.0-0.2) Sodium Level 141 mmol/L (136-145) Potassium Level 4.3 mmol/L (3.5-5.1) Chloride Level 107 mmol/L (98-107) Carbon Dioxide Level 30 mmol/L (21-32) Anion Gap 4 (6-14) Blood Urea Nitrogen 23 mg/dL (8-26) Creatinine 1.8 mg/dL (0.7-1.3) Estimated GFR (Cockcroft-Gault) 44.9 BUN/Creatinine Ratio 13 (6-20) Glucose Level 158 mg/dL (70-99) Calcium Level 9.0 mg/dL (8.5-10.1) Phosphorus Level 1.6 mg/dL (2.6-4.7) Magnesium Level 2.0 mg/dL (1.8-2.4) Total Bilirubin 0.5 mg/dL (0.2-1.0) Aspartate Amino Transf (AST/SGOT) 27 U/L (15-37) Alanine Aminotransferase (ALT/SGPT) 19 U/L (16-63) Alkaline Phosphatase 85 U/L (46-116) Total Protein 6.2 g/dL (6.4-8.2) Albumin 1.6 g/dL (3.4-5.0) Albumin/Globulin Ratio 0.3 (1.0-1.7) Triglycerides Level 123 mg/dL (0-150) Objective: Assessment: 1. Febrile illnessresolved 2. Leukocytosis, was on steroids,ileus could contribute,improving 3. COVID-19 pneumonia. 4. Acute hypoxic respiratory failure status post intubation.Now S/P Trach 05/15 5. Congestive heart failure, acute on chronic. 6. Acute kidney injury on chronic kidney disease on hemodialysis. 7. Diabetes mellitus 2. 8. Atrial fibrillation. 9. Anemia. 10. Protein-calorie malnutrition. 11. Hypertention 12.Hyponatremia 13. Ileus, Bowel obstruction Peg TF on hold, OG to LIS 14.on PPN 15.Mild to Moderate Pleural effusion 16.Lt eye conjunctivitis resolved Plan: Plan of Care Leukocytosis appears reactive 1. Monitor off Merrem ( 05/25) Cultures negative 2. Follow-up labs and cultures. 3. HDC/ Central line changed on 05/11, DC trialysis catheter if able 4. Continue supportive care. 5 cont local eye care 6. Awaiting permacath placement 7.C. difficile PCR negative Remains critically ill ALAYNA RIVERO MD May 28, 2021 08:21
[2021-05-28] MEDS ORDERED: SODIUM PHOSPHATE 15 MMOL in IV NS 100 ML IV ONE (10:00)
--- NOTE | 2021-05-28 10:44 | PDOC ---
Date of Service: DATE: 05/28/21 TIME: 10:40 Objective: Objective: D/w nurse - more than 250cc from NG tube (closer to 300), no stool. Vital Signs: Vital Signs Date Time Temp Pulse Resp B/P (MAP) Pulse Ox O2 Delivery O2 Flow Rate FiO2 05/28/21 08:00 Mechanical Ventilator 05/28/21 07:50 99 05/28/21 07:00 56 21 106/55 (72) 05/28/21 04:00 98.2 98.2 05/27/21 17:09 10.0 Labs: Laboratory Tests Test 05/27/21 11:38 05/27/21 17:57 05/28/21 00:11 05/28/21 05:37 Glucose (Fingerstick) 155 mg/dL 179 mg/dL 147 mg/dL White Blood Count 15.0 x10^3/uL Red Blood Count 3.07 x10^6/uL Hemoglobin 8.2 g/dL Hematocrit 25.7 % Mean Corpuscular Volume 84 fL Mean Corpuscular Hemoglobin 27 pg Mean Corpuscular Hemoglobin Concent 32 g/dL Red Cell Distribution Width 18.6 % Platelet Count 391 x10^3/uL Neutrophils (%) (Auto) 61 % Lymphocytes (%) (Auto) 22 % Monocytes (%) (Auto) 11 % Eosinophils (%) (Auto) 5 % Basophils (%) (Auto) 1 % Neutrophils # (Auto) 9.1 x10^3/uL Lymphocytes # (Auto) 3.4 x10^3/uL Monocytes # (Auto) 1.7 x10^3/uL Eosinophils # (Auto) 0.7 x10^3/uL Basophils # (Auto) 0.1 x10^3/uL Sodium Level 141 mmol/L Potassium Level 4.3 mmol/L Chloride Level 107 mmol/L Carbon Dioxide Level 30 mmol/L Anion Gap 4 Blood Urea Nitrogen 23 mg/dL Creatinine 1.8 mg/dL Estimated GFR (Cockcroft-Gault) 44.9 BUN/Creatinine Ratio 13 Glucose Level 158 mg/dL Calcium Level 9.0 mg/dL Phosphorus Level 1.6 mg/dL Magnesium Level 2.0 mg/dL Total Bilirubin 0.5 mg/dL Aspartate Amino Transf (AST/SGOT) 27 U/L Alanine Aminotransferase (ALT/SGPT) 19 U/L Alkaline Phosphatase 85 U/L Total Protein 6.2 g/dL Albumin 1.6 g/dL Albumin/Globulin Ratio 0.3 Triglycerides Level 123 mg/dL PE: GEN: NAD LUNGS: trach/vent HEART: RRR ABD: large, soft, didn't hear much, NG bilious NEURO/PSYCH: eyes open, unclear orients A/P: COVID-19/resp failure CKD/?ESRD Ileus - not a candidate for PEG placement currently -- NGT output ongoing but possibly slowing? Continue same. Justicifation of Admission Dx: Justifications for Admission: Justification of Admission Dx: Yes Aspiration Pneumonia: Hemodynamic Instability TAIWO THEODORE May 28, 2021 10:44
[2021-05-28] MEDS: TPN PER PHARMACY MC PRN (11:23)
--- NOTE | 2021-05-28 11:27 | NUR ---
Pharmacy TPN Dosing Note S: NILAM LAN is a 75 year old M Currently receiving Central Continuous TPN started 05/22/21 B:Pertinent PMH: ILEUS Height: 6 feet, 2 inches Weight: 148.9 kg Current diet: NPO LABS: Sodium: 141 Potassium: 4.3 Chloride: 107 Calcium: 9.0 Corrected Calcium: 10.92 Magnesium: 2 CO2: 30 SCr: 1.8 Glucose: 147-158 Albumin: 1.6 AST: 27 ALT: 19 TPN FORMULA: TPN TYPE: Central Continuous AMINO ACIDS: 90 gm DEXTROSE: 290 gm LIPIDS: 20 gm SODIUM CHLORIDE: 90 mEq POTASSIUM CHLORIDE: 50 mEq POTASSIUM PHOSPHATE: 5 mmol MAGNESIUM: 10 mEq CALCIUM: 5 mEq MULTIPLE VITAMIN: 5 ml TRACE ELEMENTS: 1 ml(s) TPN PLAN: Macro's adjusted per prescriptionist today. Total volume of TPN adjusted to accomodate increases. Sodium phos 15mmol 1x IVPB today for phos of 1.6 Kphos 5mmol added to tonight's bag. R: Change TPN per plan and ordered formula Will monitor electrolytes, glucose, and tolerance to TPN. Jaqueline [address], 05/28/21 [id number]
--- NOTE | 2021-05-28 11:44 | PDOC ---
Renal-Progress Notes Subjective Notes Notes AROUSABLE History of Present Illness Hx of present illness STABLE Vitals Vitals Vital Signs Date Time Temp Pulse Resp B/P (MAP) Pulse Ox O2 Delivery O2 Flow Rate FiO2 05/28/21 11:00 102 21 137/68 (91) 100 Ventilator 05/28/21 08:00 98.7 98.7 05/27/21 17:09 10.0 Weight Weight [ ] I.O. Intake and Output Intake and Output 05/28/21 07:00 Intake Total 4119.86 ml Output Total 2625 ml Balance 1494.86 ml IV Total 3939.86 ml Other 180 ml Output Urine Total 2375 ml Drainage Total 250 ml Labs Labs Laboratory Tests Test 05/27/21 17:57 05/28/21 00:11 05/28/21 05:37 Glucose (Fingerstick) 179 mg/dL (70-99) 147 mg/dL (70-99) White Blood Count 15.0 x10^3/uL (4.0-11.0) Red Blood Count 3.07 x10^6/uL (4.30-5.70) Hemoglobin 8.2 g/dL (13.0-17.5) Hematocrit 25.7 % (39.0-53.0) Mean Corpuscular Volume 84 fL (79-100) Mean Corpuscular Hemoglobin 27 pg (25-35) Mean Corpuscular Hemoglobin Concent 32 g/dL (31-37) Red Cell Distribution Width 18.6 % (11.5-14.5) Platelet Count 391 x10^3/uL (140-400) Neutrophils (%) (Auto) 61 % (31-73) Lymphocytes (%) (Auto) 22 % (24-48) Monocytes (%) (Auto) 11 % (0-9) Eosinophils (%) (Auto) 5 % (0-3) Basophils (%) (Auto) 1 % (0-3) Neutrophils # (Auto) 9.1 x10^3/uL (1.8-7.7) Lymphocytes # (Auto) 3.4 x10^3/uL (1.0-4.8) Monocytes # (Auto) 1.7 x10^3/uL (0.0-1.1) Eosinophils # (Auto) 0.7 x10^3/uL (0.0-0.7) Basophils # (Auto) 0.1 x10^3/uL (0.0-0.2) Sodium Level 141 mmol/L (136-145) Potassium Level 4.3 mmol/L (3.5-5.1) Chloride Level 107 mmol/L (98-107) Carbon Dioxide Level 30 mmol/L (21-32) Anion Gap 4 (6-14) Blood Urea Nitrogen 23 mg/dL (8-26) Creatinine 1.8 mg/dL (0.7-1.3) Estimated GFR (Cockcroft-Gault) 44.9 BUN/Creatinine Ratio 13 (6-20) Glucose Level 158 mg/dL (70-99) Calcium Level 9.0 mg/dL (8.5-10.1) Phosphorus Level 1.6 mg/dL (2.6-4.7) Magnesium Level 2.0 mg/dL (1.8-2.4) Total Bilirubin 0.5 mg/dL (0.2-1.0) Aspartate Amino Transf (AST/SGOT) 27 U/L (15-37) Alanine Aminotransferase (ALT/SGPT) 19 U/L (16-63) Alkaline Phosphatase 85 U/L (46-116) Total Protein 6.2 g/dL (6.4-8.2) Albumin 1.6 g/dL (3.4-5.0) Albumin/Globulin Ratio 0.3 (1.0-1.7) Triglycerides Level 123 mg/dL (0-150) Micro Micro Microbiology 05/11/21 Gram Stain Evaluation - Final, Complete 05/11/21 Respiratory Culture - Final, Complete 05/04/21 Gram Stain - Final, Complete 05/04/21 Aerobic Culture - Final, Complete 05/04/21 Blood Culture - Final, Complete NO GROWTH AFTER 5 DAYS Review of Systems Constitutional: yes: unresponsive, other Physical Exam General Appearance: no apparent distress, other (ON THE VENT) Skin: warm, dry, edema Respiratory: decreased breath sounds Heart: S1S2 Abdomen: soft, N/T, distension, other Genitourinary: bladder flat, mooney catheter Extremities: pulses present, edema Neurology: other (sedated) Musculoskeletal: Other Assessment Assessment IMP HYPONATREMIA-RESOLVED HYPOKALEMIA LOW MAG-CORRECTED ILDA-ATN-UO IMPROVED CKD - SUSPECT STAGE 3 ACUTE HYPOXIC RESP FAILURE COVID 19 PNEUMONIA MET ACIDOSIS-BETTER LEUCOCYTOSIS ANEMIA S/P TRACH ANASARCA ILEUS PLAN VENT SUPPORT NUTRITION GOOD RESPONSE TO DIURETICS WITH CLEARANCE MAINTAINED HOLD DIALYSIS TODAY PROMISE TRANSFER PENDING D/W DR FISHMAN WILL FOLLOW JEANINE NEWTON MD May 28, 2021 11:43
--- NOTE | 2021-05-28 12:42 | PDOC ---
[employer] PROGRESS NOTE Date of Service DOS: DATE: 05/28/21 TIME: 12:39 Chief Complaint Chief Complaint Respiratory failure requiring intubation COVID-19 Acute TX A. fib SIRS Hypertension with hypertensive urgency Hyperlipidemia CKD Diabetes History of bilateral subclavian stenosis History of marijuana use Severe protein calorie malnutrition Trach placed on May 15 GI consulted for PEG evaluation --> patient with a lot of vomiting yesterday thus current NG tube to low intermittent suction History of Present Illness History of Present Illness 05/28/2021 No acute events overnight. Patient doing well on trach with settings of 40% FiO2 and PEEP of 8. Pending PEG placement after ileus is resolved will defer this to GI for timing of PEG placement.. Also pending tunneled catheter placement for dialysis. Patient's chart, labs, images were reviewed and discussed with RN A total of 31 minutes of critical care time was spent in reviewing chart, labs, and images. Discussed with RN and SW. 05/27/2021: Afebrile. On vent with FiO2 40%, PEEP 5. Hemoglobin remains stable at 7.2 today; continue to trend. WBC 13.4. Kidney function appears to be stabilized. LTAC transfer is pending PEG tube placement. Off meropenem; will continue to monitor. Kidney function appears to be stable. Critical care time 30 minutes spent reviewing charts, reviewing labs, reviewing imaging, discussion with RN. 05/26/2021: Afebrile. On vent with FiO2 40%, PEEP 5. Hemoglobin 7.3 yesterday, and hemoglobin 7.2 today; continue to trend. Leukocytosis slightly improved, WBC 12.9 today. Has been accepted at [facility]; transfer pending, but will need PEG tube placement prior. Critical care time 30 minutes spent reviewing charts, reviewing labs, reviewing imaging, discussion with RN. 05/25/2021: Afebrile. On vent with FiO2 40%, PEEP 5. Hemoglobin 8.6 yesterday, hemoglobin 7.3 today. Reportedly had HD yesterday. Continue IV antibiotics, per ID; WBC possibly reactive to ileus. Has been accepted at [facility]; transfer pending, but will need PEG tube placement prior. Critical care time 30 minutes spent reviewing charts, reviewing labs, reviewing imaging, discussion with RN. 05/24/2021: No acute events overnight. Afebrile. NG tube output has decreased. Kidney function appears stable. Continue IV antibiotics, per ID. Patient has been accepted to [facility], pending insurance authorization. Critical care time 30 minutes spent reviewing charts, reviewing labs, reviewing imaging, discussion with RN. 05/23/2021: Afebrile. On vent with FiO2 40%, PEEP 5. NG tube for 635 mL out overnight. Continue NG tube to suction. HD per nephrology. Continue IV antibiotics, per ID. Critical care time 30 minutes spent reviewing charts, reviewing labs, reviewing imaging, discussion with RN. 05/22/2021: Afebrile. On vent with FiO2 40%, PEEP 5. Continues to have excessive NG output. Continue NG tube to suction for now; PEG on hold for now. Continue hemodialysis, per nephrology. Continue IV antibiotics, per ID. Social work helping with discharge planning to LTACH likely in the near future after PEG is placed. Critical care time 30 minutes spent reviewing charts, reviewing labs, reviewing imaging, discussion with RN. 05/21/2021: Afebrile, no acute events overnight. Remains on vent, FiO2 40%, PEEP 5. S/P tracheostomy on 05/15/2021. KUB on 05/19/2021 consistent with ileus. Per GI, continue NG tube to suction and parenteral nutrition for now. Continue IV antibiotics, per ID. Continue hemodialysis, per nephrology. Continue supportive care. Critical care time 30 minutes spent reviewing charts, reviewing imaging, reviewing labs, and discussed with RN. 05/20/21 Patient seen and examined at bedside. Again had multiple bouts of vomiting yesterday. GI continuing to follow for PEG evaluation although on hold right now due to persistent vomiting. Leukocytosis does persist but patient afebrile. Plan of care discussed with bedside RN 05/19/21 Patient seen and examined at bedside. Apparently had a fair bit of vomiting overnight. GI following for PEG evaluation. Otherwise patient remained stable. Plan of care discussed with bedside nurse. 05/18/21 Patient seen and examined at bedside. Attempting to increase tube feeds, GI consulted for PEG evaluation. Otherwise no major clinical changes. Continue to wean sedation. Plan of care discussed with bedside nurse. 05/17/21 Patient seen and examined at bedside. Attempting to wean sedation. Patient with some diarrhea. Per infectious disease will give erythromycin eye ointment for eye lesions. Nephro and pulm also following. Continue sedation weaning, plan of care discussed with bedside nurse. 05/16/21 Patient seen and examined at bedside. Underwent tracheostomy yesterday today tolerated well. When seen this morning patient is still notably sedated respiratory status is stable. Continue antibiotics and supportive measures. Plan of care discussed with bedside nurse. Attempt to wean sedation. 05/15/21 Patient seen and examined at bedside Remains intubated and sedated planning for tracheostomy today Continue current respiratory support; continue antibiotics, continue sedation Follow recommendations of pulmonary, renal, and infectious disease Plan of care discussed with bedside nurse Will follow up with patient after surgery today 05/14/21 Patient seen and examined at bedside Remains intubated and sedated planning for tracheostomy tomorrow Continue current respiratory support; continue antibiotics, continue sedation Follow recommendations of pulmonary, renal, and infectious disease Plan of care discussed with bedside nurse 05/13/2021 did not tolerate sedation vacation 05/11/2021, profoundly hypertensive ABG/CXR--changes as needed Continue iv cefepime , add zyvox, sputum culture VENT %, 5 of PEEP Mild pulmonary edema with new small right pleural effusion and basilar opacities now on cardene gtt prn Patient seen and examined in the COVID-19 ICU remains mechanically ventilated ILDA on CKD - ATN 2/2 sepsis/ Hypotension,UOP good,on IV Lasix ; requiring dialysis, Sedated with propofol Dex and fentanyl Chart reviewed Discussed with RN He remains critically ill intubated/sedated cont cardene gtt not able to tolerate PS trial 05/06/21 Change central line and send cath tip for cultures. 05-09 C. difficile PCR ADELSO AVILA MD ORDERED: BCULT --------- --- Procedure Result BLOOD CULTURE Final NO GROWTH AFTER 5 DAYS JONES FISHMAN MD, CHRISTOPHER S MD BLOOD CULTURE Preliminary NO GROWTH AFTER 4 DAYS 37 min cc time 05/12/2021 Continue iv cefepime , add zyvox, sputum culture VENT [id number]%, 5 of PEEP Mild pulmonary edema with new small right pleural effusion and basilar opacities now on cardene gtt prn Patient seen and examined in the [id number] ICU remains mechanically ventilated ILDA on CKD - ATN 2/2 sepsis/ Hypotension,UOP good,on IV Lasix ; requiring dialysis, Sedated with propofol Dex and fentanyl Chart reviewed Discussed with RN He remains critically ill intubated/sedated cont cardene gtt not able to tolerate PS trial 05/06/21 Change central line and send cath tip for cultures. 05-09 C. difficile PCR JONES FISHMAN MD, CHRISTOPHER S MD SISILLO, SABATO MD ORDERED: BCULT Procedure Result -- BLOOD CULTURE Preliminary NO GROWTH AFTER 2 DAYS BLOOD CULTURE Preliminary NO GROWTH AFTER 4 DAYS 33 min cc time 05/11/2021 Continue iv cefepime , add zyvox, sputum culture VENT [id number]%, 5 of PEEP Mild pulmonary edema with new small right pleural effusion and basilar opacities now on cardene gtt prn Patient seen and examined in the [place] [address] ICU remains mechanically ventilated ILDA on CKD - ATN 2/2 sepsis/ Hypotension,UOP good,on IV Lasix ; requiring dialysis, Sedated with propofol Dex and fentanyl Chart reviewed Discussed with RN He remains critically ill intubated/sedated cont cardene gtt not able to tolerate PS trial 05/06/21 Change central line and send cath tip for cultures. 05-09 C. difficile PCR JONES FISHMAN MD,ADELSO DASILVA MD, MD ORDERED: BCULT Procedure Result BLOOD CULTURE Preliminary NO GROWTH AFTER 2 DAYS BLOOD CULTURE Preliminary NO GROWTH AFTER 4 DAYS 36 min cc time 05/10/2021 VENT [id number]%, 5 of PEEP Mild pulmonary edema with new small right pleural effusion and basilar opacities now on cardene gtt prn Patient seen and examined in the COVID-19 ICU remains mechanically ventilated ILDA on CKD - ATN 2/2 sepsis/ Hypotension,UOP good,on IV Lasix ; requiring dialysis, Sedated with propofol Dex and fentanyl Chart reviewed Discussed with RN He remains critically ill intubated/sedated cont cardene gtt not able to tolerate PS trial 05/06/21 Change central line and send cath tip for cultures. 05-09 C. difficile PCR JONES FISHMAN MD,ADELSO DASILVA MD, MD ORDERED: BCULT Procedure Result BLOOD CULTURE Preliminary NO GROWTH AFTER 2 DAYS BLOOD CULTURE Preliminary NO GROWTH AFTER 4 DAYS 33 min cc time 05/09/2021 VENT %, 5 of PEEP Mild pulmonary edema with new small right pleural effusion and basilar opacities now on cardene gtt prn Patient seen and examined in the COVID-19 ICU remains mechanically ventilated ILDA on CKD - ATN 2/2 sepsis/ Hypotension,UOP good,on IV Lasix ; requiring dialysis, Sedated with propofol Dex and fentanyl Chart reviewed Discussed with RN He remains critically ill intubated/sedated cont cardene gtt not able to tolerate PS trial 05/06/21 Change central line and send cath tip for cultures. 05-09 C. difficile PCR JONES FISHMAN MD,BRIAN AVILA,ADELSO POTTER ORDERED: BCULT Procedure Result BLOOD CULTURE Preliminary NO GROWTH AFTER 2 DAYS BLOOD CULTURE Preliminary NO GROWTH AFTER 4 DAYS 37 min cc time 05/08/2021 Currently on 40%, 5 of PEEP now on cardene gtt Patient seen and examined in the [place] [address] ICU remains mechanically ventilated ILDA on CKD - ATN 2/2 sepsis/ Hypotension,UOP good,on IV Lasix ; requiring dialysis, AC/20/500/40 percent with 5 of PEEP Sedated with propofol Dex and fentanyl Chart reviewed Discussed with RN He remains critically ill intubated/sedated cont cardene gtt not able to tolerate PS trial 05/06/21 JONES FISHMAN MD,ADELSO DASILVA MD, MD ORDERED: BCULT -- Procedure Result BLOOD CULTURE Preliminary NO GROWTH AFTER 2 DAYS BLOOD CULTURE Preliminary NO GROWTH AFTER 4 DAYS 33 min cc time 05/07/2021 Patient seen and examined in the [place] [address] ICU He remains mechanically ventilated ILDA on CKD - ATN 2/2 sepsis/ Hypotension,UOP good,on IV Lasix ; requiring dialysis, AC/20/500/40 percent with 5 of PEEP Sedated with propofol Dex and fentanyl Chart reviewed Discussed with RN He remains critically ill intubated/sedated cont cardene gtt not able to tolerate PS trial 05/06/21 JONES FISHMAN MD,ADELSO DASILVA MD, MD ORDERED: BCULT Procedure Result BLOOD CULTURE Preliminary NO GROWTH AFTER 2 DAYS 36 min cc time 05/06/2021 Patient seen and examined in the [place] [address] ICU He remains mechanically ventilated AC/20/500/40 percent with 5 of PEEP Sedated with propofol Dex and fentanyl Chart reviewed Discussed with RN He remains critically ill 05/05/2020 Patient seen and examined in the [place] [address] ICU He remains on the vent AC/20/500/40 percent with 5 of PEEP Discussed with RN Chart reviewed Has SCDs in place Nieves to bedside drainage He remains critically ill 05/04/2021 Patient seen and examined in the [place] [address] ICU Still intubated Sedated with propofol and fentanyl AC/20/500/70 percent with 5 of PEEP On dialysis currently Has SCDs in Nieves to bedside drainage Discussed with RN Chart reviewed 05/03/2021 Patient seen and examined in the [place] [address] ICU He is still intubated AC/20/500/70 percent with 5 of PEEP Has SCDs in place Nieves to bedside drainage Sedated with fentanyl Versed and propofol Discussed are Chart reviewed Remains critically ill 05/02/2021 Patient seen and examined in the [place] [address] ICU He is sedated with propofol fentanyl and Versed Ventilator settings as follow AC/20/500/40 percent with 5 of PEEP Has Nieves to bedside drainage Chart reviewed Discussed with RN He remains critically ill 05/01/2021 Patient seen and examined in the [place] [address] ICU He is still intubated AC/20/500/40 percent with 5 of PEEP In A. fib Sedated with propofol fentanyl and Versed Has a heparin drip Missy with RN Chart reviewed He remains critically 04/30/2020 Patient seen and examined in the [place] [address] ICU He remains on the vent AC/20/500/40 5% with 5 PEEP Currently on dialysis Has OG feeds running Has a Nieves to bedside drainage Sedated with propofol and fentanyl Reviewed chart Discussed with RN He remains critically ill Mr Cunha is a 75 yo male w/ PMHx CAD, HTN, Hyperlipidemia, subclavian steel syndrome, subclavian stenosis s/p left subclavian sent placement complicated by retroperitoneal hematoma s/p evacuation in 08/2015), asthma, BART, CKD, DM2 who presented from home with home health care noted that he was short of breath and valverde with O2 saturations less than 89% as low as 84% not improved with nasal cannulated oxygen placed on CPAP and brought to ED for further care. He was just discharged from the hospital a week ago on April 19, 2021 for abdominal pain and was going for further cardiac testing with outpatient stress testing scheduled on May 28, 2021. Had echocardiogram April 17, 2021 with normal-appearing EF with moderate concentric LVH no significant valvular abnormalities. WBC 20, Hb 10.7, platelets 268, NA 140, K3.8, BUN 21, CR 2.9, glucose 162, albumin 3, troponin I 1.372, NT proBNP 33,318. EKG appears sinus tachycardia rate of 105 bpm with multiple PACs small ST depressions in lead II and V5. TWI in V6. Chest radiograph with diffuse interstitial and alveolar opacities and ET tube 5.8 cm above the leilani. Due to worsening respiratory status ED physician elected to intubate patient. Seen postintubation. Blood pressure little low after propofol bolus, but improved. Significant white frothy sputum per ET tube. Admitted to ICU for further care 04/29/2021: Afebrile, remains on vent at FiO2 45%, PEEP 5. WBC 20.4. Hemodialysis per nephrology. We will continue treatment with empiric antibiotics, remdesivir, and steroids. Continue heparin infusion and supportive care. Critical care time 30 minutes reviewing chart, review labs, review imaging, discussion with RN. 04/28/2021: Afebrile. FiO2 50%, PEEP 5. Nontunneled HD catheter placed yesterday due to worsening kidney function; eGFR 16 (CKD4). Chest x-ray showed unchanged interstitial opacities. Continue empiric antibiotics, steroids, and remdesivir. Continue heparin infusion, and continue to follow cardiology recommendations on new diagnosis of A. fib. Critical care time 30 minutes reviewing chart, review labs, review imaging, discussion with RN. 04/27/2021: Afebrile. On vent with FiO2 50%, PEEP 5. Troponin 2.8 yesterday; probable type II, demand ischemia. New onset A. fib. Continue heparin drip and as needed digoxin, per cardiology. Continue treatment with remdesivir, steroids, and prophylactic antibiotics. CBG 323 this morning; will add basal insulin. Critical care 30 minutes spent reviewing labs, reviewing imaging, reviewing charts, and discussion with RN. 04/26/2021: COVID-19 positive. Febrile overnight that was managed with cooling blankets. On vent with FiO2 50%, PEEP 5. Per cardiology, elevated troponins likely secondary to demand ischemia; continue heparin drip per cardiology. Maintain fluid balance and avoid nephrotoxins. Continue treatment with remdesivir, steroids, and prophylactic antibiotics. 30 minutes critical care time spent reviewing charts, reviewing labs, reviewing imaging, and discussion with RN. 04/25/2021: On vent FiO2 50, PEEP 5. Febrile, T-max 103.3. Patient was initiated on cooling blankets. Procalcitonin 0.13. Continue coverage for hospital-acquired pneumonia with cefepime. MRSA PCR pending. Critical care time 30 minutes spent reviewing charts, reviewing labs, review of imaging, discussion with RN. Vitals/I&O Vitals/I&O: Vital Signs Date Time Temp Pulse Resp B/P (MAP) Pulse Ox O2 Delivery O2 Flow Rate FiO2 05/28/21 11:50 100 Tracheal Collar 10.0 05/28/21 11:00 102 21 137/68 (91) 05/28/21 08:00 98.7 98.7 I & O 05/27/21 05/27/21 05/28/21 15:00 23:00 07:00 Intake Total 1355.86 ml 2764 ml Output Total 460 ml 1340 ml 825 ml Balance -460 ml 15.86 ml 1939 ml Physical Exam Physical Exam: GENERAL: Well-developed and well-nourished male, sedated HEENT: Normocephalic, atraumatic, redness and erythema of both eyes improved, NG tube present NECK: right dialysis catheter present clean,central line changed ( 05/11) Trach + HEART: S1, S2. LUNGS: Decreased breath sounds. ABDOMEN: distended,hypoactive BS GENITOURINARY: Nieves in place. EXTREMITIES: Edema present. DERMATOLOGIC: Warm, dry, no generalized rash. NEUROLOGIC: Opens eyes PICC line clean General: No acute distress, Other (Alert and awake) Heart: Regular rate, Normal S1, Normal S2 Lungs: Crackles Abdomen: Normal bowel sounds, Other (ND) Extremities: No clubbing, No cyanosis, Other (Lower extremity edema) Skin: No rashes, No breakdown, No significant lesion Labs Labs: Laboratory Tests Test 05/27/21 17:57 05/28/21 00:11 05/28/21 05:37 05/28/21 11:45 Glucose (Fingerstick) 179 mg/dL (70-99) 147 mg/dL (70-99) 90 mg/dL (70-99) White Blood Count 15.0 x10^3/uL (4.0-11.0) Red Blood Count 3.07 x10^6/uL (4.30-5.70) Hemoglobin 8.2 g/dL (13.0-17.5) Hematocrit 25.7 % (39.0-53.0) Mean Corpuscular Volume 84 fL (79-100) Mean Corpuscular Hemoglobin 27 pg (25-35) Mean Corpuscular Hemoglobin Concent 32 g/dL (31-37) Red Cell Distribution Width 18.6 % (11.5-14.5) Platelet Count 391 x10^3/uL (140-400) Neutrophils (%) (Auto) 61 % (31-73) Lymphocytes (%) (Auto) 22 % (24-48) Monocytes (%) (Auto) 11 % (0-9) Eosinophils (%) (Auto) 5 % (0-3) Basophils (%) (Auto) 1 % (0-3) Neutrophils # (Auto) 9.1 x10^3/uL (1.8-7.7) Lymphocytes # (Auto) 3.4 x10^3/uL (1.0-4.8) Monocytes # (Auto) 1.7 x10^3/uL (0.0-1.1) Eosinophils # (Auto) 0.7 x10^3/uL (0.0-0.7) Basophils # (Auto) 0.1 x10^3/uL (0.0-0.2) Sodium Level 141 mmol/L (136-145) Potassium Level 4.3 mmol/L (3.5-5.1) Chloride Level 107 mmol/L (98-107) Carbon Dioxide Level 30 mmol/L (21-32) Anion Gap 4 (6-14) Blood Urea Nitrogen 23 mg/dL (8-26) Creatinine 1.8 mg/dL (0.7-1.3) Estimated GFR (Cockcroft-Gault) 44.9 BUN/Creatinine Ratio 13 (6-20) Glucose Level 158 mg/dL (70-99) Calcium Level 9.0 mg/dL (8.5-10.1) Phosphorus Level 1.6 mg/dL (2.6-4.7) Magnesium Level 2.0 mg/dL (1.8-2.4) Total Bilirubin 0.5 mg/dL (0.2-1.0) Aspartate Amino Transf (AST/SGOT) 27 U/L (15-37) Alanine Aminotransferase (ALT/SGPT) 19 U/L (16-63) Alkaline Phosphatase 85 U/L (46-116) Total Protein 6.2 g/dL (6.4-8.2) Albumin 1.6 g/dL (3.4-5.0) Albumin/Globulin Ratio 0.3 (1.0-1.7) Triglycerides Level 123 mg/dL (0-150) Assessment and Plan Assessmemt and Plan Problems Medical Problems: (1) Elevated troponin Status: Acute (2) Person under investigation for COVID-19 Status: Acute (3) Pulmonary edema Status: Acute Comment Review of Relevant I have reviewed the following items juanita (where applicable) has been applied. Medications: Current Medications Medications (Trade) Dose Ordered Sig/Jodie Route PRN Reason Start Time Stop Time Status Last Admin Dose Admin Sodium Chloride 90 meq/Potassium Chloride 50 meq/ Magnesium Sulfate 10 meq/Calcium Gluconate 5 meq/ Multivitamins 5 ml/Zinc/Copper/ Manganese/ Selenium 1 ml/ Total Parenteral Nutrition/Amino Acids/Dextrose/ Fat Emulsion Intravenous 960 ml @ 40 mls/hr TPN CONT IV 05/27/21 22:00 05/28/21 21:59 05/27/21 22:03 Sodium Phosphate 15 mmol/Dextrose 105 ml @ 105 mls/hr 1X ONCE IV 05/28/21 10:00 05/28/21 10:59 DC 05/28/21 10:43 Justifications for Admission General Conditions Altered mental status?: Yes Justification of admission: Patient has tachycardia (> 100 beats per minute) or hypotension (SBP < 90 mm Hg) leading to inadequate systemic perfusion as indicated by severe/persistent altered mental status. Other Justification HUY WEBB MD May 28, 2021 12:42
--- NOTE | 2021-05-28 16:10 | NUR ---
SS following up with discharge planning. SS reviewed pt chart and discussed with pt RN. Pt is currently on the vent at 40%. COVID19 recovered. NG in place. TPN. Currently awaiting ileus to resolve. Pt on Fentanyl and Precedex. Hemodialysis held today. Pt accepted at [facility], ; fax [phone], pending insurance approval. Per [facility], ilieus needs to be improved and pt needs to be on less FI02 prior to authorizing. SS will continue to follow for discharge planning.
[2021-05-28] MEDS: MONTELUKAST SODIUM 10 MG TABLET. PO SCH (19:54)
[2021-05-28] MEDS: ATORVASTATIN CALCIUM 40 MG TABLET. PO SCH (19:54)
[2021-05-28] MEDS: INSULIN GLARGINE SYRINGE. SQ SCH (21:14)
[2021-05-28] MEDS ORDERED: TOTAL PARENTERAL NUTRITION IV SCH (22:00)
[2021-05-28] MEDS ORDERED: [UNRECOGNIZED DRUG - OTHER] IV SCH (22:00)
[2021-05-28] MEDS ORDERED: DEXTROSE 70% IV SCH (22:00)
[2021-05-28] MEDS ORDERED: AMINO ACID IV SCH (22:00)
[2021-05-29] VITALS (24 sets, daily range): BP systolic 105–204; BP diastolic 54–98
[2021-05-29] MEDS: DEXMEDETOMIDINE 400 MCG in IV NORMAL SALINE 100ML 96 ML IV PRN ×8 (03:13→23:52)
[2021-05-29] MEDS: INSULIN LISPRO 300 UNITS/3 ML VIAL. SQ SCH ×4 (05:14→23:46)
[2021-05-29] MEDS: hydrALAZINE 20 MG/ML VIAL. IVP PRN ×2 (05:16→08:08)
[2021-05-29 05:44] LABS: CREATININE 2.1 mg/dL (0.7-1.3); GFR 37.5; MAGNESIUM 1.9 mg/dL (1.8-2.4); PHOSPHORUS 2.3 mg/dL (2.6-4.7); POTASSIUM 4.2 mmol/L (3.5-5.1)
[2021-05-29] MEDS: METOPROLOL IV PUSH 5 MG/5 ML VIAL. IVP SCH ×4 (05:47→23:45)
[2021-05-29 05:49] LABS: BASO # 0.2 x10^3/uL (0.0-0.2); BASO % 1 % (0-3); EOS # 0.7 x10^3/uL (0.0-0.7); EOS % 4 % (0-3); HEMATOCRIT 22.8 % (39.0-53.0); HEMOGLOBIN 7.1 g/dL (13.0-17.5); LYMPH # 4.4 x10^3/uL (1.0-4.8); LYMPH % 25 % (24-48); MEAN CORPUSCULAR HEMOGLOBIN 27 pg (25-35); MEAN CORPUSCULAR HGB CONC 31 g/dL (31-37); MEAN CORPUSCULAR VOLUME 85 fL (79-100); MONO # 2.2 x10^3/uL (0.0-1.1); MONO % 13 % (0-9); NEUT # 10.2 x10^3/uL (1.8-7.7); NEUT % 58 % (31-73); PLATELET COUNT 446 x10^3/uL (140-400); RED BLOOD COUNT 2.69 x10^6/uL (4.30-5.70); RED CELL DISTRIBUTION WIDTH 18.4 % (11.5-14.5); WHITE BLOOD COUNT 17.7 x10^3/uL (4.0-11.0)
[2021-05-29] MEDS: HEPARIN for SUB-Q USE 5,000 UNIT/ML VIAL. SQ SCH ×3 (05:49→21:17)
--- NOTE | 2021-05-29 07:52 | PDOC ---
Infectious Disease Note Subjective: Subjective Pt remains vent dependent Afebrile Permacath placement is on hold Discussed with nursing staff Vital Signs: Vital Signs Vital Signs Date Time Temp Pulse Resp B/P (MAP) Pulse Ox O2 Delivery O2 Flow Rate FiO2 05/29/21 07:26 98 Tracheal Collar 10.0 05/29/21 07:00 98 24 200/98 (132) 05/29/21 04:00 99.2 99.2 Physical Exam: PHYSICAL EXAM GENERAL: Well-developed and well-nourished male, sedated HEENT: Normocephalic, atraumatic, redness and erythema of both eyes improved, NG tube present NECK: right dialysis catheter present clean,central line changed ( 05/11) Trach + HEART: S1, S2. LUNGS: Decreased breath sounds. ABDOMEN: Less distended, bowel sounds present GENITOURINARY: Nieves in place. EXTREMITIES: Edema present. DERMATOLOGIC: Warm, dry, no generalized rash. NEUROLOGIC: Opens eyes PICC line clean Medications: Inpatient Meds: Medications reviewed. Labs: Lab Laboratory Tests Test 05/28/21 11:45 05/28/21 17:49 05/28/21 23:38 05/29/21 05:00 Glucose (Fingerstick) 90 mg/dL (70-99) 142 mg/dL (70-99) 212 mg/dL (70-99) White Blood Count 17.7 x10^3/uL (4.0-11.0) Red Blood Count 2.69 x10^6/uL (4.30-5.70) Hemoglobin 7.1 g/dL (13.0-17.5) Hematocrit 22.8 % (39.0-53.0) Mean Corpuscular Volume 85 fL (79-100) Mean Corpuscular Hemoglobin 27 pg (25-35) Mean Corpuscular Hemoglobin Concent 31 g/dL (31-37) Red Cell Distribution Width 18.4 % (11.5-14.5) Platelet Count 446 x10^3/uL (140-400) Neutrophils (%) (Auto) 58 % (31-73) Lymphocytes (%) (Auto) 25 % (24-48) Monocytes (%) (Auto) 13 % (0-9) Eosinophils (%) (Auto) 4 % (0-3) Basophils (%) (Auto) 1 % (0-3) Neutrophils # (Auto) 10.2 x10^3/uL (1.8-7.7) Lymphocytes # (Auto) 4.4 x10^3/uL (1.0-4.8) Monocytes # (Auto) 2.2 x10^3/uL (0.0-1.1) Eosinophils # (Auto) 0.7 x10^3/uL (0.0-0.7) Basophils # (Auto) 0.2 x10^3/uL (0.0-0.2) Sodium Level 142 mmol/L (136-145) Potassium Level 4.2 mmol/L (3.5-5.1) Chloride Level 107 mmol/L (98-107) Carbon Dioxide Level 27 mmol/L (21-32) Anion Gap 8 (6-14) Blood Urea Nitrogen 28 mg/dL (8-26) Creatinine 2.1 mg/dL (0.7-1.3) Estimated GFR (Cockcroft-Gault) 37.5 Glucose Level 255 mg/dL (70-99) Calcium Level 9.0 mg/dL (8.5-10.1) Phosphorus Level 2.3 mg/dL (2.6-4.7) Magnesium Level 1.9 mg/dL (1.8-2.4) Test 05/29/21 05:10 Glucose (Fingerstick) 254 mg/dL (70-99) Objective: Assessment: 1. Febrile illnessresolved 2. Leukocytosis, was on steroids,ileus could contribute,improving 3. COVID-19 pneumonia. 4. Acute hypoxic respiratory failure status post intubation.Now S/P Trach 05/15 5. Congestive heart failure, acute on chronic. 6. Acute kidney injury on chronic kidney disease on hemodialysis. 7. Diabetes mellitus 2. 8. Atrial fibrillation. 9. Anemia. 10. Protein-calorie malnutrition. 11. Hypertention 12.Hyponatremia 13. Ileus, Bowel obstruction Peg TF on hold, OG to LIS 14.on PPN 15.Mild to Moderate Pleural effusion 16.Lt eye conjunctivitis resolved Plan: Plan of Care Leukocytosis appears reactive Remains afebrile Monitor off Merrem. Completed treatment Patient has been on numerous antibiotics this hospitalization Cultures remain negative Monitor labs and cultures HDC/ Central line changed on 05/11, Continue supportive care. cont local eye care DC central line, change Nieves C. difficile PCR negative Trend WBC Remains critically ill Discussed with nursing staff ALAYNA RIVERO MD May 29, 2021 07:52
[2021-05-29] MEDS: PANTOPRAZOLE IV PUSH 40 MG VIAL. IVP SCH (08:02)
[2021-05-29] MEDS: FUROSEMIDE 40 MG/4 ML VIAL. IVP SCH ×3 (08:04→21:15)
[2021-05-29] MEDS: NYSTATIN TOPICAL POWDER 15GM BOTTLE. TP SCH ×2 (08:05→21:16)
[2021-05-29] MEDS: ASPIRIN CHEWABLE 81 MG TABLET. PO SCH (08:05)
[2021-05-29] MEDS: TPN PER PHARMACY MC PRN (10:01)
--- NOTE | 2021-05-29 10:09 | NUR ---
Pharmacy TPN Dosing Note S: NILAM LAN is a 75 year old M Currently receiving Central Continuous TPN started 05/22/21 B:Pertinent PMH: ILEUS LABS: Sodium: 142 Potassium: 4.2 Chloride: 107 Calcium: 9.0 Corrected Calcium: 10.92 Magnesium: 1.9 CO2: 27 SCr: 2.1 Glucose: 254 Albumin: 1.6 AST: 27 ALT: 19 TPN FORMULA: TPN TYPE: Central Continuous AMINO ACIDS: 90 gm DEXTROSE: 290 gm LIPIDS: 30 gm SODIUM CHLORIDE: 90 mEq SODIUM ACETATE: - mEq SODIUM PHOSPHATE: - mmol POTASSIUM CHLORIDE: 50 mEq POTASSIUM ACETATE: - mEq POTASSIUM PHOSPHATE: 5 mmol MAGNESIUM: 10 mEq CALCIUM: 5 mEq INSULIN: - units MULTIPLE VITAMIN: 5 ml TRACE ELEMENTS: 1 ml(s) TPN PLAN: 05/29 Continue same TPN with Sodium phos 15mmol 1x IVPB today for phos of 1.9 R: Continue TPN Will monitor electrolytes, glucose, and tolerance to TPN. JUDI RUDOLPH RP, 05/29/21 [id number]
--- NOTE | 2021-05-29 10:36 | PDOC ---
PULMONARY PROGRESS NOTES DATE: 05/29/21 TIME: 10:33 Subjective Remains on PS 10/5,40%. Ongoing gastric tube to LIS, ileus No overnight concerns from nursing Patient was tried on trach shield this morning, had increase in blood pressure and increased respiratory rate. He was rested back on CPAP Vitals Vital Signs Date Time Temp Pulse Resp B/P (MAP) Pulse Ox O2 Delivery O2 Flow Rate FiO2 05/29/21 10:00 109 30 172/86 (114) 99 Trach Shield 05/29/21 08:00 99.5 99.5 05/29/21 07:26 10.0 Comments Tracheostomy/sedation, unable to report HEENT: Other (Trachea midline) Lungs: Crackles Cardiovascular: S1, S2 Abdomen: Soft Extremities: No Edema Skin: Warm Labs Laboratory Tests Test 05/27/21 11:38 05/27/21 17:57 05/28/21 00:11 05/28/21 05:37 Glucose (Fingerstick) 155 mg/dL (70-99) 179 mg/dL (70-99) 147 mg/dL (70-99) White Blood Count 15.0 x10^3/uL (4.0-11.0) Red Blood Count 3.07 x10^6/uL (4.30-5.70) Hemoglobin 8.2 g/dL (13.0-17.5) Hematocrit 25.7 % (39.0-53.0) Mean Corpuscular Volume 84 fL (79-100) Mean Corpuscular Hemoglobin 27 pg (25-35) Mean Corpuscular Hemoglobin Concent 32 g/dL (31-37) Red Cell Distribution Width 18.6 % (11.5-14.5) Platelet Count 391 x10^3/uL (140-400) Neutrophils (%) (Auto) 61 % (31-73) Lymphocytes (%) (Auto) 22 % (24-48) Monocytes (%) (Auto) 11 % (0-9) Eosinophils (%) (Auto) 5 % (0-3) Basophils (%) (Auto) 1 % (0-3) Neutrophils # (Auto) 9.1 x10^3/uL (1.8-7.7) Lymphocytes # (Auto) 3.4 x10^3/uL (1.0-4.8) Monocytes # (Auto) 1.7 x10^3/uL (0.0-1.1) Eosinophils # (Auto) 0.7 x10^3/uL (0.0-0.7) Basophils # (Auto) 0.1 x10^3/uL (0.0-0.2) Sodium Level 141 mmol/L (136-145) Potassium Level 4.3 mmol/L (3.5-5.1) Chloride Level 107 mmol/L (98-107) Carbon Dioxide Level 30 mmol/L (21-32) Anion Gap 4 (6-14) Blood Urea Nitrogen 23 mg/dL (8-26) Creatinine 1.8 mg/dL (0.7-1.3) Estimated GFR (Cockcroft-Gault) 44.9 BUN/Creatinine Ratio 13 (6-20) Glucose Level 158 mg/dL (70-99) Calcium Level 9.0 mg/dL (8.5-10.1) Phosphorus Level 1.6 mg/dL (2.6-4.7) Magnesium Level 2.0 mg/dL (1.8-2.4) Total Bilirubin 0.5 mg/dL (0.2-1.0) Aspartate Amino Transf (AST/SGOT) 27 U/L (15-37) Alanine Aminotransferase (ALT/SGPT) 19 U/L (16-63) Alkaline Phosphatase 85 U/L (46-116) Total Protein 6.2 g/dL (6.4-8.2) Albumin 1.6 g/dL (3.4-5.0) Albumin/Globulin Ratio 0.3 (1.0-1.7) Triglycerides Level 123 mg/dL (0-150) Test 05/28/21 11:45 05/28/21 17:49 05/28/21 23:38 05/29/21 05:00 Glucose (Fingerstick) 90 mg/dL (70-99) 142 mg/dL (70-99) 212 mg/dL (70-99) White Blood Count 17.7 x10^3/uL (4.0-11.0) Red Blood Count 2.69 x10^6/uL (4.30-5.70) Hemoglobin 7.1 g/dL (13.0-17.5) Hematocrit 22.8 % (39.0-53.0) Mean Corpuscular Volume 85 fL (79-100) Mean Corpuscular Hemoglobin 27 pg (25-35) Mean Corpuscular Hemoglobin Concent 31 g/dL (31-37) Red Cell Distribution Width 18.4 % (11.5-14.5) Platelet Count 446 x10^3/uL (140-400) Neutrophils (%) (Auto) 58 % (31-73) Lymphocytes (%) (Auto) 25 % (24-48) Monocytes (%) (Auto) 13 % (0-9) Eosinophils (%) (Auto) 4 % (0-3) Basophils (%) (Auto) 1 % (0-3) Neutrophils # (Auto) 10.2 x10^3/uL (1.8-7.7) Lymphocytes # (Auto) 4.4 x10^3/uL (1.0-4.8) Monocytes # (Auto) 2.2 x10^3/uL (0.0-1.1) Eosinophils # (Auto) 0.7 x10^3/uL (0.0-0.7) Basophils # (Auto) 0.2 x10^3/uL (0.0-0.2) Sodium Level 142 mmol/L (136-145) Potassium Level 4.2 mmol/L (3.5-5.1) Chloride Level 107 mmol/L (98-107) Carbon Dioxide Level 27 mmol/L (21-32) Anion Gap 8 (6-14) Blood Urea Nitrogen 28 mg/dL (8-26) Creatinine 2.1 mg/dL (0.7-1.3) Estimated GFR (Cockcroft-Gault) 37.5 Glucose Level 255 mg/dL (70-99) Calcium Level 9.0 mg/dL (8.5-10.1) Phosphorus Level 2.3 mg/dL (2.6-4.7) Magnesium Level 1.9 mg/dL (1.8-2.4) Test 05/29/21 05:10 Glucose (Fingerstick) 254 mg/dL (70-99) Laboratory Tests Test 05/28/21 11:45 05/28/21 17:49 05/28/21 23:38 05/29/21 05:00 Glucose (Fingerstick) 90 mg/dL (70-99) 142 mg/dL (70-99) 212 mg/dL (70-99) White Blood Count 17.7 x10^3/uL (4.0-11.0) Red Blood Count 2.69 x10^6/uL (4.30-5.70) Hemoglobin 7.1 g/dL (13.0-17.5) Hematocrit 22.8 % (39.0-53.0) Mean Corpuscular Volume 85 fL (79-100) Mean Corpuscular Hemoglobin 27 pg (25-35) Mean Corpuscular Hemoglobin Concent 31 g/dL (31-37) Red Cell Distribution Width 18.4 % (11.5-14.5) Platelet Count 446 x10^3/uL (140-400) Neutrophils (%) (Auto) 58 % (31-73) Lymphocytes (%) (Auto) 25 % (24-48) Monocytes (%) (Auto) 13 % (0-9) Eosinophils (%) (Auto) 4 % (0-3) Basophils (%) (Auto) 1 % (0-3) Neutrophils # (Auto) 10.2 x10^3/uL (1.8-7.7) Lymphocytes # (Auto) 4.4 x10^3/uL (1.0-4.8) Monocytes # (Auto) 2.2 x10^3/uL (0.0-1.1) Eosinophils # (Auto) 0.7 x10^3/uL (0.0-0.7) Basophils # (Auto) 0.2 x10^3/uL (0.0-0.2) Sodium Level 142 mmol/L (136-145) Potassium Level 4.2 mmol/L (3.5-5.1) Chloride Level 107 mmol/L (98-107) Carbon Dioxide Level 27 mmol/L (21-32) Anion Gap 8 (6-14) Blood Urea Nitrogen 28 mg/dL (8-26) Creatinine 2.1 mg/dL (0.7-1.3) Estimated GFR (Cockcroft-Gault) 37.5 Glucose Level 255 mg/dL (70-99) Calcium Level 9.0 mg/dL (8.5-10.1) Phosphorus Level 2.3 mg/dL (2.6-4.7) Magnesium Level 1.9 mg/dL (1.8-2.4) Test 05/29/21 05:10 Glucose (Fingerstick) 254 mg/dL (70-99) Medications Active Scripts Medications Dose Route/Sig Max Daily Dose Days Date Category Glyburide 2.5 Mg Tablet 1 Tab PO DAILY 04/19/21 Rx Polyethylene Glycol 3350 17 Gm Powd.pack 17 Gm PO DAILY 04/19/21 Rx Dok (Docusate Sodium) 100 Mg Capsule 100 Mg PO PRN DAILY PRN 04/19/21 Rx Bisacodyl 5 Mg Tablet. 5 Mg PO PRN DAILY PRN 04/19/21 Rx Acetaminophen 325 Mg Tablet 650 Mg PO PRN Q4HRS PRN 04/19/21 Rx Aspirin Ec (Aspirin) 81 Mg Tablet.dr 81 Mg PO DAILYWBKFT 04/19/21 Rx Hydralazine Hcl 25 Mg Tablet 25 Mg PO QID 04/19/21 Rx Fenofibrate 54 Mg Tablet 1 Tab PO DAILY 04/17/21 Reported Potassium Chloride (Potassium Chloride) 20 Meq Tablet.er 20 Meq PO DAILY 04/17/21 Reported Coreg (Carvedilol) 12.5 Mg Tablet 37.5 Mg PO BIDWMEALS 04/17/21 Reported Rosuvastatin Calcium 40 Mg Tablet 40 Mg PO QHS 04/17/21 Reported Gabapentin (Gabapentin) 100 Mg Capsule 200 Mg PO BID 04/17/21 Reported Montelukast Sodium Tablet (Montelukast Sodium) 10 Mg Tablet 10 Mg PO HS 04/17/21 Reported Protonix (Pantoprazole Sodium) 20 Mg Tablet. 2 Tab PO DAILY 04/17/21 Reported Amlodipine Besylate 5 Mg Tablet 5 Mg PO DAILY 04/17/21 Reported Furosemide 40 Mg Tablet 1 Tab PO DAILY 04/17/21 Reported Proair Hfa Inhaler (Albuterol Sulfate) 8.5 Gm Hfa.aer.ad 2 Puff IH PRN Q4-6HRS PRN 04/16/21 Reported Advair 100-50 Diskus (Fluticasone/Salmeterol) 1 Each Disk.w.dev 1 Puff IH BID 04/16/21 Reported Comments Chest x-ray reviewed by me dated 05/23/2021. Minimal left basal effusion/atelectasis. Impression . IMPRESSION: 1. Acute hypoxic respiratory failure, multifactorial/COVID-19 viral pneumonia/ARDS, ongoing, intubated 04/25/2021, now status post tracheostomy 05/15/[address] chest with bilateral diffuse interstitial infiltrates without any significant pleural effusion 3. Leukocytosis, sepsis--improved 4. Non-ST segment elevation NC 5. History of tobacco use, suspect COPD, unknown FEV1 6. Chronic kidney disease.== HD as needed per renal 7. Metabolic acidosis multifactorial 8. Abnormal chest x-ray 9. Hypoglycemia, continue to monitor--- resolved 10. Hypotension, suspect volume deficit,/possible sepsis--- resolved 11. Fever--improved 12. Anemia--improved 13. Atrial fibrillation with rapid ventricular response, currently rate controlled 14. Ileus Plan . Updated 05/29/21 Continue current vent support, currently on PS 10/5 40%, failed trach shield trial today due to increase respiratory rate and blood pressure. I suspect ileus is also contributing to delayed weaning. Patient is a very difficult patient for weaning secondary to increased agitation and hypertension with reduction of sedation. Continues to remain on Precedex. S/P trach 05/15/2021 Follow ABG/CXR--changes as needed Follow GI recs-- ileus, PEG tube on hold Follow nephrology recs-- Follow infectious disease recommendations Continue TPN for nutritional support DVT/GI PPX: sq heparin D/W RN and RT Pt. is DNR Follow chest x-ray in a.m. CC time 30 minutes Updated 05/28/21 Continue current vent support, currently on PS 10/5 40%, tolerating well, wea swati during the day as tolerated Patient is a very difficult patient for weaning secondary to increased agitation and hypertension with reduction of sedation S/P trach 05/15/2021 Follow ABG/CXR--changes as needed Follow GI recs-- ileus, PEG tube on hold Follow nephrology recs-- Follow infectious disease recommendations Continue TPN for nutritional support DVT/GI PPX: sq heparin D/W RN and RT Pt. is DNR CC time 30 minutes Updated 05/27/21 Continue current vent support, currently on PS 10/5 40%, tolerating well, PS/weaning during the day as tolerated S/P trach 05/15/2021 decrease sedation as tolerated Continue multi antihypertensive medications for control of blood pressure. Follow ABG/CXR--changes as needed Follow ID recs for ABX Follow GI recs-- ileus, PEG tube on hold, ng secretion decreasing Follow nephrology recs-- had hd 05/26 hd per nephro Follow Cardiology recs-- Continue TPN for nutritional support. Patient has ongoing ileus. DVT/GI PPX: sq heparin D/W RN and RT Pt. is DNR JONES FISHMAN MD May 29, 2021 10:36
--- NOTE | 2021-05-29 10:48 | PDOC ---
G I PROGRESS NOTE Reason for Follow-up PEG?/Ileus Subjective Sedated on ventilator. Objective Staff report maybe 150cc out NG overnight (still too much if carry out to 24 hours). No stools. Physical Exam Lungs clear anteriorly. RRR Abdomen rotund, softer than last week. Ventral hernia. Diminished bowel sounds. Review of Relevant I have reviewed the following items juanita (where applicable) has been applied. Labs Laboratory Tests Test 05/27/21 11:38 05/27/21 17:57 05/28/21 00:11 05/28/21 05:37 Glucose (Fingerstick) 155 mg/dL (70-99) 179 mg/dL (70-99) 147 mg/dL (70-99) White Blood Count 15.0 x10^3/uL (4.0-11.0) Red Blood Count 3.07 x10^6/uL (4.30-5.70) Hemoglobin 8.2 g/dL (13.0-17.5) Hematocrit 25.7 % (39.0-53.0) Mean Corpuscular Volume 84 fL (79-100) Mean Corpuscular Hemoglobin 27 pg (25-35) Mean Corpuscular Hemoglobin Concent 32 g/dL (31-37) Red Cell Distribution Width 18.6 % (11.5-14.5) Platelet Count 391 x10^3/uL (140-400) Neutrophils (%) (Auto) 61 % (31-73) Lymphocytes (%) (Auto) 22 % (24-48) Monocytes (%) (Auto) 11 % (0-9) Eosinophils (%) (Auto) 5 % (0-3) Basophils (%) (Auto) 1 % (0-3) Neutrophils # (Auto) 9.1 x10^3/uL (1.8-7.7) Lymphocytes # (Auto) 3.4 x10^3/uL (1.0-4.8) Monocytes # (Auto) 1.7 x10^3/uL (0.0-1.1) Eosinophils # (Auto) 0.7 x10^3/uL (0.0-0.7) Basophils # (Auto) 0.1 x10^3/uL (0.0-0.2) Sodium Level 141 mmol/L (136-145) Potassium Level 4.3 mmol/L (3.5-5.1) Chloride Level 107 mmol/L (98-107) Carbon Dioxide Level 30 mmol/L (21-32) Anion Gap 4 (6-14) Blood Urea Nitrogen 23 mg/dL (8-26) Creatinine 1.8 mg/dL (0.7-1.3) Estimated GFR (Cockcroft-Gault) 44.9 BUN/Creatinine Ratio 13 (6-20) Glucose Level 158 mg/dL (70-99) Calcium Level 9.0 mg/dL (8.5-10.1) Phosphorus Level 1.6 mg/dL (2.6-4.7) Magnesium Level 2.0 mg/dL (1.8-2.4) Total Bilirubin 0.5 mg/dL (0.2-1.0) Aspartate Amino Transf (AST/SGOT) 27 U/L (15-37) Alanine Aminotransferase (ALT/SGPT) 19 U/L (16-63) Alkaline Phosphatase 85 U/L (46-116) Total Protein 6.2 g/dL (6.4-8.2) Albumin 1.6 g/dL (3.4-5.0) Albumin/Globulin Ratio 0.3 (1.0-1.7) Triglycerides Level 123 mg/dL (0-150) Test 05/28/21 11:45 05/28/21 17:49 05/28/21 23:38 05/29/21 05:00 Glucose (Fingerstick) 90 mg/dL (70-99) 142 mg/dL (70-99) 212 mg/dL (70-99) White Blood Count 17.7 x10^3/uL (4.0-11.0) Red Blood Count 2.69 x10^6/uL (4.30-5.70) Hemoglobin 7.1 g/dL (13.0-17.5) Hematocrit 22.8 % (39.0-53.0) Mean Corpuscular Volume 85 fL (79-100) Mean Corpuscular Hemoglobin 27 pg (25-35) Mean Corpuscular Hemoglobin Concent 31 g/dL (31-37) Red Cell Distribution Width 18.4 % (11.5-14.5) Platelet Count 446 x10^3/uL (140-400) Neutrophils (%) (Auto) 58 % (31-73) Lymphocytes (%) (Auto) 25 % (24-48) Monocytes (%) (Auto) 13 % (0-9) Eosinophils (%) (Auto) 4 % (0-3) Basophils (%) (Auto) 1 % (0-3) Neutrophils # (Auto) 10.2 x10^3/uL (1.8-7.7) Lymphocytes # (Auto) 4.4 x10^3/uL (1.0-4.8) Monocytes # (Auto) 2.2 x10^3/uL (0.0-1.1) Eosinophils # (Auto) 0.7 x10^3/uL (0.0-0.7) Basophils # (Auto) 0.2 x10^3/uL (0.0-0.2) Sodium Level 142 mmol/L (136-145) Potassium Level 4.2 mmol/L (3.5-5.1) Chloride Level 107 mmol/L (98-107) Carbon Dioxide Level 27 mmol/L (21-32) Anion Gap 8 (6-14) Blood Urea Nitrogen 28 mg/dL (8-26) Creatinine 2.1 mg/dL (0.7-1.3) Estimated GFR (Cockcroft-Gault) 37.5 Glucose Level 255 mg/dL (70-99) Calcium Level 9.0 mg/dL (8.5-10.1) Phosphorus Level 2.3 mg/dL (2.6-4.7) Magnesium Level 1.9 mg/dL (1.8-2.4) Test 05/29/21 05:10 Glucose (Fingerstick) 254 mg/dL (70-99) Laboratory Tests Test 05/28/21 11:45 05/28/21 17:49 05/28/21 23:38 05/29/21 05:00 Glucose (Fingerstick) 90 mg/dL (70-99) 142 mg/dL (70-99) 212 mg/dL (70-99) White Blood Count 17.7 x10^3/uL (4.0-11.0) Red Blood Count 2.69 x10^6/uL (4.30-5.70) Hemoglobin 7.1 g/dL (13.0-17.5) Hematocrit 22.8 % (39.0-53.0) Mean Corpuscular Volume 85 fL (79-100) Mean Corpuscular Hemoglobin 27 pg (25-35) Mean Corpuscular Hemoglobin Concent 31 g/dL (31-37) Red Cell Distribution Width 18.4 % (11.5-14.5) Platelet Count 446 x10^3/uL (140-400) Neutrophils (%) (Auto) 58 % (31-73) Lymphocytes (%) (Auto) 25 % (24-48) Monocytes (%) (Auto) 13 % (0-9) Eosinophils (%) (Auto) 4 % (0-3) Basophils (%) (Auto) 1 % (0-3) Neutrophils # (Auto) 10.2 x10^3/uL (1.8-7.7) Lymphocytes # (Auto) 4.4 x10^3/uL (1.0-4.8) Monocytes # (Auto) 2.2 x10^3/uL (0.0-1.1) Eosinophils # (Auto) 0.7 x10^3/uL (0.0-0.7) Basophils # (Auto) 0.2 x10^3/uL (0.0-0.2) Sodium Level 142 mmol/L (136-145) Potassium Level 4.2 mmol/L (3.5-5.1) Chloride Level 107 mmol/L (98-107) Carbon Dioxide Level 27 mmol/L (21-32) Anion Gap 8 (6-14) Blood Urea Nitrogen 28 mg/dL (8-26) Creatinine 2.1 mg/dL (0.7-1.3) Estimated GFR (Cockcroft-Gault) 37.5 Glucose Level 255 mg/dL (70-99) Calcium Level 9.0 mg/dL (8.5-10.1) Phosphorus Level 2.3 mg/dL (2.6-4.7) Magnesium Level 1.9 mg/dL (1.8-2.4) Test 05/29/21 05:10 Glucose (Fingerstick) 254 mg/dL (70-99) Microbiology 05/11/21 Gram Stain Evaluation - Final, Complete 05/11/21 Respiratory Culture - Final, Complete 05/04/21 Gram Stain - Final, Complete 05/04/21 Aerobic Culture - Final, Complete 05/04/21 Blood Culture - Final, Complete NO GROWTH AFTER 5 DAYS Vitals/I & O Vital Sign - Last 24 Hours 05/28/21 05/28/21 05/28/21 05/28/21 11:00 11:30 11:50 12:00 Temp 98.0 98.0 Pulse 102 54 Resp 21 18 B/P (MAP) 137/68 (91) 164/78 (106) Pulse Ox 100 99 100 100 O2 Delivery Ventilator Ventilator Tracheal Collar Ventilator O2 Flow Rate 10.0 05/28/21 05/28/21 05/28/21 05/28/21 12:00 13:00 13:12 13:15 Pulse 103 Resp 28 21 B/P (MAP) 155/80 (105) Pulse Ox 100 100 100 O2 Delivery Mechanical Ventilator Trach shield Tracheal Collar Tracheal Collar O2 Flow Rate 10.0 10.0 10.0 05/28/21 05/28/21 05/28/21 05/28/21 13:17 13:45 14:00 15:00 Pulse 99 100 103 Resp 14 21 14 B/P (MAP) 164/78 156/75 (102) 112/67 (82) Pulse Ox 100 100 100 O2 Delivery Ventilator Trach shield Trach shield O2 Flow Rate 10.0 10.0 10.0 05/28/21 05/28/21 05/28/21 05/28/21 15:38 16:00 16:00 17:00 Temp 98.7 98.7 Pulse 54 76 Resp 16 21 B/P (MAP) 149/71 (97) 164/74 (104) Pulse Ox 99 100 100 O2 Delivery Tracheal Collar Trach Collar Ventilator Trach shield O2 Flow Rate 10.0 10.0 10.0 05/28/21 05/28/21 05/28/21 05/28/21 17:31 17:50 18:00 19:00 Pulse 100 76 Resp 24 21 B/P (MAP) 156/75 159/81 (107) Pulse Ox 100 100 100 O2 Delivery Tracheal Collar Trach shield Ventilator O2 Flow Rate 10.0 10.0 10.0 05/28/21 05/28/21 05/28/21 05/28/21 19:00 20:00 20:00 20:17 Temp 98.8 98.8 Pulse 72 98 Resp 27 30 B/P (MAP) 168/78 (108) 220/98 (138) Pulse Ox 100 100 100 O2 Delivery Trach shield Trach Collar Trach shield Tracheal Collar O2 Flow Rate 10.0 10.0 10.0 10.0 05/28/21 05/28/21 05/28/21 05/28/21 21:00 22:00 23:00 23:25 Pulse 68 90 78 Resp 17 22 20 B/P (MAP) 138/61 (86) 198/98 (131) 151/69 (96) Pulse Ox 100 100 100 96 O2 Delivery Ventilator Ventilator Ventilator Ventilator 05/28/21 05/29/21 05/29/21 05/29/21 23:36 00:00 00:00 01:00 Temp 99.2 99.2 Pulse 70 80 84 Resp 22 20 B/P (MAP) 151/69 172/76 (108) 176/83 (114) Pulse Ox 100 100 O2 Delivery Ventilator Mechanical Ventilator Ventilator 05/29/21 05/29/21 05/29/21 05/29/21 02:00 02:37 03:00 04:00 Temp 99.2 99.2 Pulse 82 75 101 Resp 18 18 27 B/P (MAP) 176/71 (106) 189/80 (116) 204/84 (124) Pulse Ox 100 96 100 100 O2 Delivery Ventilator Ventilator Ventilator Ventilator 05/29/21 05/29/21 05/29/21 05/29/21 04:00 05:00 05:16 05:27 Pulse 112 106 Resp 22 B/P (MAP) 178/91 (120) 196/107 Pulse Ox 100 100 O2 Delivery Mechanical Ventilator Ventilator Ventilator 05/29/21 05/29/21 05/29/21 05/29/21 05:47 06:00 07:00 07:26 Pulse 118 66 98 Resp 18 24 B/P (MAP) 178/91 105/54 (71) 200/98 (132) Pulse Ox 100 99 98 O2 Delivery Ventilator Trach Shield Tracheal Collar O2 Flow Rate 10.0 05/29/21 05/29/21 05/29/21 05/29/21 08:00 08:00 08:04 08:07 Temp 99.5 99.5 Pulse 100 109 102 Resp 20 B/P (MAP) 140/69 (92) 207/102 207/102 Pulse Ox 99 O2 Delivery Trach Shield Trach Collar 05/29/21 05/29/21 05/29/21 05/29/21 08:08 08:55 09:00 09:34 Pulse 102 112 Resp 20 35 28 B/P (MAP) 207/102 157/94 (115) Pulse Ox 99 97 100 O2 Delivery Tracheal Collar Trach Shield Pressure Support 05/29/21 05/29/21 09:35 10:00 Pulse 109 Resp 30 B/P (MAP) 172/86 (114) Pulse Ox 99 99 O2 Delivery Ventilator Trach Shield Intake and Output 05/28/21 05/28/21 05/29/21 15:00 23:00 07:00 Intake Total 1153.68 ml 950 ml Output Total 780 ml 1125 ml 975 ml Balance -780 ml 28.68 ml -25 ml Problem List Problems Medical Problems: (1) Elevated troponin Status: Acute (2) Person under investigation for COVID-19 Status: Acute (3) Pulmonary edema Status: Acute Assessment Ileus--better? OP dysphagia. COVID recovery. Plan of Care Note Continue suction. Check KUB. Ducolax suppository. Justicifation of Admission Dx: Justifications for Admission: Justification of Admission Dx: Yes Aspiration Pneumonia: Hemodynamic Instability CLINT PRICE MD May 29, 2021 10:48
[2021-05-29] MEDS ORDERED: SODIUM PHOSPHATE 15 MMOL in IV NS 100 ML IV ONE (11:00)
--- NOTE | 2021-05-29 11:31 | PDOC ---
[employer] PROGRESS NOTE Date of Service DOS: DATE: 05/29/21 TIME: 11:30 Chief Complaint Chief Complaint Respiratory failure requiring intubation COVID-19 Acute ME A. fib SIRS Hypertension with hypertensive urgency Hyperlipidemia CKD Diabetes History of bilateral subclavian stenosis History of marijuana use Severe protein calorie malnutrition Trach placed on May 15 GI consulted for PEG evaluation --> patient with a lot of vomiting yesterday thus current NG tube to low intermittent suction History of Present Illness History of Present Illness 05/29/2021 No acute events or night. Patient tolerating trach collar humidified. Saturating at 99%. Pending PICC line placement and IJ central line removal. Per ID. Possibly in not needing HD. Making urine adequately with Lasix as needed. Patient's chart, labs, images were reviewed and discussed with RN A total of 34 minutes of critical care time was spent in reviewing chart, labs, and images. Discussed with RN and SW. 05/28/2021 No acute events overnight. Patient doing well on trach with settings of 40% FiO2 and PEEP of 8. Pending PEG placement after ileus is resolved will defer this to GI for timing of PEG placement.. Also pending tunneled catheter placement for dialysis. Patient's chart, labs, images were reviewed and d iscussed with RN A total of 31 minutes of critical care time was spent in reviewing chart, labs, and images. Discussed with RN and SW. 05/27/2021: Afebrile. On vent with FiO2 40%, PEEP 5. Hemoglobin remains stable at 7.2 today; continue to trend. WBC 13.4. Kidney function appears to be stabilized. LTAC transfer is pending PEG tube placement. Off meropenem; will continue to monitor. Kidney function appears to be stable. Critical care time 30 minutes spent reviewing charts, reviewing labs, reviewing imaging, discussion with RN. 05/26/2021: Afebrile. On vent with FiO2 40%, PEEP 5. Hemoglobin 7.3 yesterday, and hemoglobin 7.2 today; continue to trend. Leukocytosis slightly improved, WBC 12.9 today. Has been accepted at [facility]; transfer pending, but will need PEG tube placement prior. Critical care time 30 minutes spent reviewing charts, reviewing labs, reviewing imaging, discussion with RN. 05/25/2021: Afebrile. On vent with FiO2 40%, PEEP 5. Hemoglobin 8.6 yesterday, hemoglobin 7.3 today. Reportedly had HD yesterday. Continue IV antibiotics, per ID; WBC possibly reactive to ileus. Has been accepted at [facility]; transfer pending, but will need PEG tube placement prior. Critical care time 30 minutes spent reviewing charts, reviewing labs, reviewing imaging, discussion with RN. 05/24/2021: No acute events overnight. Afebrile. NG tube output has decreased. Kidney function appears stable. Continue IV antibiotics, per ID. Patient has been accepted to [facility], pending insurance authorization. Critical care time 30 minutes spent reviewing charts, reviewing labs, reviewing imaging, discussion with RN. 05/23/2021: Afebrile. On vent with FiO2 40%, PEEP 5. NG tube for 635 mL out overnight. Continue NG tube to suction. HD per nephrology. Continue IV antibiotics, per ID. Critical care time 30 minutes spent reviewing charts, reviewing labs, reviewing imaging, discussion with RN. 05/22/2021: Afebrile. On vent with FiO2 40%, PEEP 5. Continues to have excessive NG output. Continue NG tube to suction for now; PEG on hold for now. Continue hemodialysis, per nephrology. Continue IV antibiotics, per ID. Social work helping with discharge planning to LTACH likely in the near future after PEG is placed. Critical care time 30 minutes spent reviewing charts, reviewing labs, reviewing imaging, discussion with RN. 05/21/2021: Afebrile, no acute events overnight. Remains on vent, FiO2 40%, PEEP 5. S/P tracheostomy on 05/15/2021. KUB on 05/19/2021 consistent with ileus. Per GI, continue NG tube to suction and parenteral nutrition for now. Continue IV antibiotics, per ID. Continue hemodialysis, per nephrology. Continue supportive care. Critical care time 30 minutes spent reviewing charts, reviewing imaging, reviewing labs, and discussed with RN. 05/20/21 Patient seen and examined at bedside. Again had multiple bouts of vomiting yesterday. GI continuing to follow for PEG evaluation although on hold right now due to persistent vomiting. Leukocytosis does persist but patient afebrile. Plan of care discussed with bedside RN 05/19/21 Patient seen and examined at bedside. Apparently had a fair bit of vomiting overnight. GI following for PEG evaluation. Otherwise patient remained stable. Plan of care discussed with bedside nurse. 05/18/21 Patient seen and examined at bedside. Attempting to increase tube feeds, GI consulted for PEG evaluation. Otherwise no major clinical changes. Continue to wean sedation. Plan of care discussed with bedside nurse. 05/17/21 Patient seen and examined at bedside. Attempting to wean sedation. Patient with some diarrhea. Per infectious disease will give erythromycin eye ointment for eye lesions. Nephro and pulm also following. Continue sedation weaning, plan of care discussed with bedside nurse. 05/16/21 Patient seen and examined at bedside. Underwent tracheostomy yesterday today tolerated well. When seen this morning patient is still notably sedated respiratory status is stable. Continue antibiotics and supportive measures. Plan of care discussed with bedside nurse. Attempt to wean sedation. 05/15/21 Patient seen and examined at bedside Remains intubated and sedated planning for tracheostomy today Continue current respiratory support; continue antibiotics, continue sedation Follow recommendations of pulmonary, renal, and infectious disease Plan of care discussed with bedside nurse Will follow up with patient after surgery today 05/14/21 Patient seen and examined at bedside Remains intubated and sedated planning for tracheostomy tomorrow Continue current respiratory support; continue antibiotics, continue sedation Follow recommendations of pulmonary, renal, and infectious disease Plan of care discussed with bedside nurse 05/13/2021 did not tolerate sedation vacation 05/11/2021, profoundly hypertensive ABG/CXR--changes as needed Continue iv cefepime , add zyvox, sputum culture VENT [id number]%, 5 of PEEP Mild pulmonary edema with new small right pleural effusion and basilar opacities now on cardene gtt prn Patient seen and examined in the [place] [address] ICU remains mechanically ventilated ILDA on CKD - ATN 2/2 sepsis/ Hypotension,UOP good,on IV Lasix ; requiring dialysis, Sedated with propofol Dex and fentanyl Chart reviewed Discussed with RN He remains critically ill intubated/sedated cont cardene gtt not able to tolerate PS trial 05/06/21 Change central line and send cath tip for cultures. 05-09 C. difficile PCR ADELSO AVILA MD ORDERED: BCULT Procedure Result BLOOD CULTURE Final NO GROWTH AFTER 5 DAYS JONES FISHMAN MD, CHRISTOPHER S MD BLOOD CULTURE Preliminary NO GROWTH AFTER 4 DAYS 37 min cc time 05/12/2021 Continue iv cefepime , add zyvox, sputum culture VENT [id number]%, 5 of PEEP Mild pulmonary edema with new small right pleural effusion and basilar opacities now on cardene gtt prn Patient seen and examined in the [place] [address] ICU remains mechanically ventilated ILDA on CKD - ATN 2/2 sepsis/ Hypotension,UOP good,on IV Lasix ; requiring dialysis, Sedated with propofol Dex and fentanyl Chart reviewed Discussed with RN He remains critically ill intubated/sedated cont cardene gtt not able to tolerate PS trial 05/06/21 Change central line and send cath tip for cultures. 05-09 C. difficile PCR JONES FISHMAN MD, CHRISTOPHER S MD SISILLO, SABATO MD ORDERED: BCULT - Procedure Result BLOOD CULTURE Preliminary NO GROWTH AFTER 2 DAYS BLOOD CULTURE Preliminary NO GROWTH AFTER 4 DAYS 33 min cc time 05/11/2021 Continue iv cefepime , add zyvox, sputum culture VENT [id number]%, 5 of PEEP Mild pulmonary edema with new small right pleural effusion and basilar opacities now on cardene gtt prn Patient seen and examined in the [place] [address] ICU remains mechanically ventilated ILDA on CKD - ATN 2/2 sepsis/ Hypotension,UOP good,on IV Lasix ; requiring dialysis, Sedated with propofol Dex and fentanyl Chart reviewed Discussed with RN He remains critically ill intubated/sedated cont cardene gtt not able to tolerate PS trial 05/06/21 Change central line and send cath tip for cultures. 05-09 C. difficile PCR JONES FISHMAN MD,ADELSO DASILVA MD, MD ORDERED: BCULT Procedure Result BLOOD CULTURE Preliminary NO GROWTH AFTER 2 DAYS -- BLOOD CULTURE Preliminary NO GROWTH AFTER 4 DAYS 36 min cc time 05/10/2021 VENT [id number]%, 5 of PEEP Mild pulmonary edema with new small right pleural effusion and basilar opacities now on cardene gtt prn Patient seen and examined in the [place] [address] ICU remains mechanically ventilated ILDA on CKD - ATN 2/2 sepsis/ Hypotension,UOP good,on IV Lasix ; requiring dialysis, Sedated with propofol Dex and fentanyl Chart reviewed Discussed with RN He remains critically ill intubated/sedated cont cardene gtt not able to tolerate PS trial 05/06/21 Change central line and send cath tip for cultures. 05-09 C. difficile PCR JONES FISHMAN MD,ADELSO DASILVA MD, MD ORDERED: BCULT Procedure Result BLOOD CULTURE Preliminary NO GROWTH AFTER 2 DAYS BLOOD CULTURE Preliminary NO GROWTH AFTER 4 DAYS 33 min cc time 05/09/2021 VENT [id number]%, 5 of PEEP Mild pulmonary edema with new small right pleural effusion and basilar opacities now on cardene gtt prn Patient seen and examined in the [place] [address] ICU remains mechanically ventilated ILDA on CKD - ATN 2/2 sepsis/ Hypotension,UOP good,on IV Lasix ; requiring dialysis, Sedated with propofol Dex and fentanyl Chart reviewed Discussed with RN He remains critically ill intubated/sedated cont cardene gtt not able to tolerate PS trial 05/06/21 Change central line and send cath tip for cultures. 05-09 C. difficile PCR JONES FISHMAN MD,ADELSO DASILVA MD, MD ORDERED: BCULT Procedure Result BLOOD CULTURE Preliminary NO GROWTH AFTER 2 DAYS BLOOD CULTURE Preliminary NO GROWTH AFTER 4 DAYS 37 min cc time 05/08/2021 Currently on 40%, 5 of PEEP now on cardene gtt Patient seen and examined in the [facility] ICU remains mechanically ventilated ILDA on CKD - ATN 2/2 sepsis/ Hypotension,UOP good,on IV Lasix ; requiring dialysis, AC/20/500/40 percent with 5 of PEEP Sedated with propofol Dex and fentanyl Chart reviewed Discussed with RN He remains critically ill intubated/sedated cont cardene gtt not able to tolerate PS trial 05/06/21 JONES FISHMAN MD,ADELSO DASILVA MD, MD ORDERED: BCULT Procedure Result BLOOD CULTURE Preliminary NO GROWTH AFTER 2 DAYS BLOOD CULTURE Preliminary NO GROWTH AFTER 4 DAYS 33 min cc time 05/07/2021 Patient seen and examined in the [place] [address] ICU He remains mechanically ventilated ILDA on CKD - ATN 2/2 sepsis/ Hypotension,UOP good,on IV Lasix ; requiring dialysis, AC/20/500/40 percent with 5 of PEEP Sedated with propofol Dex and fentanyl Chart reviewed Discussed with RN He remains critically ill intubated/sedated cont cardene gtt not able to tolerate PS trial 05/06/21 JONES FISHMAN MD,BRIAN AVILA,ADELSO POTTER ORDERED: BCULT Procedure Result BLOOD CULTURE Preliminary NO GROWTH AFTER 2 DAYS 36 min cc time 05/06/2021 Patient seen and examined in the [place] [address] ICU He remains mechanically ventilated AC/20/500/40 percent with 5 of PEEP Sedated with propofol Dex and fentanyl Chart reviewed Discussed with RN He remains critically ill 05/05/2020 Patient seen and examined in the [place] [address] ICU He remains on the vent AC/20/500/40 percent with 5 of PEEP Discussed with RN Chart reviewed Has SCDs in place Nieves to bedside drainage He remains critically ill 05/04/2021 Patient seen and examined in the [place] [address] ICU Still intubated Sedated with propofol and fentanyl AC/20/500/70 percent with 5 of PEEP On dialysis currently Has SCDs in Nieves to bedside drainage Discussed with RN Chart reviewed 05/03/2021 Patient seen and examined in the [place] [address] ICU He is still intubated AC/20/500/70 percent with 5 of PEEP Has SCDs in place Nieves to bedside drainage Sedated with fentanyl Versed and propofol Discussed are Chart reviewed Remains critically ill 05/02/2021 Patient seen and examined in the [place] [address] ICU He is sedated with propofol fentanyl and Versed Ventilator settings as follow AC/20/500/40 percent with 5 of PEEP Has Nieves to bedside drainage Chart reviewed Discussed with RN He remains critically ill 05/01/2021 Patient seen and examined in the [place] [address] ICU He is still intubated AC/20/500/40 percent with 5 of PEEP In A. fib Sedated with propofol fentanyl and Versed Has a heparin drip Missy with RN Chart reviewed He remains critically 04/30/2020 Patient seen and examined in the [place] [address] ICU He remains on the vent AC/20/500/40 5% with 5 PEEP Currently on dialysis Has OG feeds running Has a Nieves to bedside drainage Sedated with propofol and fentanyl Reviewed chart Discussed with RN He remains critically ill Mr Cunha is a 75 yo male w/ PMHx CAD, HTN, Hyperlipidemia, subclavian steel syndrome, subclavian stenosis s/p left subclavian sent placement complicated by retroperitoneal hematoma s/p evacuation in 08/2015), asthma, BART, CKD, DM2 who presented from home with home health care noted that he was short of breath and valverde with O2 saturations less than 89% as low as 84% not improved with nasal cannulated oxygen placed on CPAP and brought to ED for further care. He was just discharged from the hospital a week ago on April 19, 2021 for abdominal pain and was going for further cardiac testing with outpatient stress testing scheduled on May 28, 2021. Had echocardiogram April 17, 2021 with normal-appearing EF with moderate concentric LVH no significant valvular abnormalities. WBC 20, Hb 10.7, platelets 268, NA 140, K3.8, BUN 21, CR 2.9, glucose 162, albumin 3, troponin I 1.372, NT proBNP 33,318. EKG appears sinus tachycardia rate of 105 bpm with multiple PACs small ST depressions in lead II and V5. TWI in V6. Chest radiograph with diffuse interstitial and alveolar opacities and ET tube 5.8 cm above the leilani. Due to worsening respiratory status ED physician elected to intubate patient. Seen postintubation. Blood pressure little low after propofol bolus, but improved. Significant white frothy sputum per ET tube. Admitted to ICU for further care 04/29/2021: Afebrile, remains on vent at FiO2 45%, PEEP 5. WBC 20.4. Hemodialysis per nephrology. We will continue treatment with empiric antibiotics, remdesivir, and steroids. Continue heparin infusion and supportive care. Critical care time 30 minutes reviewing chart, review labs, review imaging, discussion with RN. 04/28/2021: Afebrile. FiO2 50%, PEEP 5. Nontunneled HD catheter placed yesterday due to worsening kidney function; eGFR 16 (CKD4). Chest x-ray showed unchanged interstitial opacities. Continue empiric antibiotics, steroids, and remdesivir. Continue heparin infusion, and continue to follow cardiology recommendations on new diagnosis of A. fib. Critical care time 30 minutes reviewing chart, review labs, review imaging, discussion with RN. 04/27/2021: Afebrile. On vent with FiO2 50%, PEEP 5. Troponin 2.8 yesterday; probable type II, demand ischemia. New onset A. fib. Continue heparin drip and as needed digoxin, per cardiology. Continue treatment with remdesivir, steroids, and prophylactic antibiotics. CBG 323 this morning; will add basal insulin. Critical care 30 minutes spent reviewing labs, reviewing imaging, reviewing charts, and discussion with RN. 04/26/2021: COVID-19 positive. Febrile overnight that was managed with cooling blankets. On vent with FiO2 50%, PEEP 5. Per cardiology, elevated troponins likely secondary to demand ischemia; continue heparin drip per cardiology. Maintain fluid balance and avoid nephrotoxins. Continue treatment with remdesivir, steroids, and prophylactic antibiotics. 30 minutes critical care time spent reviewing charts, reviewing labs, reviewing imaging, and discussion with RN. 04/25/2021: On vent FiO2 50, PEEP 5. Febrile, T-max 103.3. Patient was initiated on cooling blankets. Procalcitonin 0.13. Continue coverage for hospital-acquired pneumonia with cefepime. MRSA PCR pending. Critical care time 30 minutes spent reviewing charts, reviewing labs, review of imaging, discussion with RN. Vitals/I&O Vitals/I&O: Vital Signs Date Time Temp Pulse Resp B/P (MAP) Pulse Ox O2 Delivery O2 Flow Rate FiO2 05/29/21 11:24 99 Ventilator 05/29/21 10:00 109 30 172/86 (114) 05/29/21 08:00 99.5 99.5 05/29/21 07:26 10.0 I & O 05/28/21 05/28/21 05/29/21 15:00 23:00 07:00 Intake Total 1153.68 ml 950 ml Output Total 780 ml 1125 ml 975 ml Balance -780 ml 28.68 ml -25 ml Physical Exam Physical Exam: GENERAL: Well-developed and well-nourished male, sedated HEENT: Normocephalic, atraumatic, redness and erythema of both eyes improved, NG tube present NECK: right dialysis catheter present clean,central line changed ( 05/11) Trach + HEART: S1, S2. LUNGS: Decreased breath sounds. ABDOMEN: Less distended, bowel sounds present GENITOURINARY: Nieves in place. EXTREMITIES: Edema present. DERMATOLOGIC: Warm, dry, no generalized rash. NEUROLOGIC: Opens eyes PICC line clean General: No acute distress, Other (Alert and awake) Heart: Regular rate, Normal S1, Normal S2 Lungs: Crackles Abdomen: Normal bowel sounds, Other (ND) Extremities: No clubbing, No cyanosis, Other (Lower extremity edema) Skin: No rashes, No breakdown, No significant lesion Labs Labs: Laboratory Tests Test 05/28/21 11:45 05/28/21 17:49 05/28/21 23:38 05/29/21 05:00 Glucose (Fingerstick) 90 mg/dL (70-99) 142 mg/dL (70-99) 212 mg/dL (70-99) White Blood Count 17.7 x10^3/uL (4.0-11.0) Red Blood Count 2.69 x10^6/uL (4.30-5.70) Hemoglobin 7.1 g/dL (13.0-17.5) Hematocrit 22.8 % (39.0-53.0) Mean Corpuscular Volume 85 fL (79-100) Mean Corpuscular Hemoglobin 27 pg (25-35) Mean Corpuscular Hemoglobin Concent 31 g/dL (31-37) Red Cell Distribution Width 18.4 % (11.5-14.5) Platelet Count 446 x10^3/uL (140-400) Neutrophils (%) (Auto) 58 % (31-73) Lymphocytes (%) (Auto) 25 % (24-48) Monocytes (%) (Auto) 13 % (0-9) Eosinophils (%) (Auto) 4 % (0-3) Basophils (%) (Auto) 1 % (0-3) Neutrophils # (Auto) 10.2 x10^3/uL (1.8-7.7) Lymphocytes # (Auto) 4.4 x10^3/uL (1.0-4.8) Monocytes # (Auto) 2.2 x10^3/uL (0.0-1.1) Eosinophils # (Auto) 0.7 x10^3/uL (0.0-0.7) Basophils # (Auto) 0.2 x10^3/uL (0.0-0.2) Sodium Level 142 mmol/L (136-145) Potassium Level 4.2 mmol/L (3.5-5.1) Chloride Level 107 mmol/L (98-107) Carbon Dioxide Level 27 mmol/L (21-32) Anion Gap 8 (6-14) Blood Urea Nitrogen 28 mg/dL (8-26) Creatinine 2.1 mg/dL (0.7-1.3) Estimated GFR (Cockcroft-Gault) 37.5 Glucose Level 255 mg/dL (70-99) Calcium Level 9.0 mg/dL (8.5-10.1) Phosphorus Level 2.3 mg/dL (2.6-4.7) Magnesium Level 1.9 mg/dL (1.8-2.4) Test 05/29/21 05:10 Glucose (Fingerstick) 254 mg/dL (70-99) Assessment and Plan Assessmemt and Plan Problems Medical Problems: (1) Elevated troponin Status: Acute (2) Person under investigation for COVID-19 Status: Acute (3) Pulmonary edema Status: Acute Comment Review of Relevant I have reviewed the following items juanita (where applicable) has been applied. Medications: Current Medications Medications (Trade) Dose Ordered Sig/Jodie Route PRN Reason Start Time Stop Time Status Last Admin Dose Admin Sodium Chloride 90 meq/Potassium Chloride 50 meq/ Potassium Phosphate 5 mmol/ Magnesium Sulfate 10 meq/Calcium Gluconate 5 meq/ Multivitamins 5 ml/Zinc/Copper/ Manganese/ Selenium 1 ml/ Total Parenteral Nutrition/Amino Acids/Dextrose/ Fat Emulsion Intravenous 1,200 ml @ 50 mls/hr TPN CONT IV 05/28/21 22:00 05/29/21 21:59 05/28/21 21:14 Justifications for Admission General Conditions Altered mental status?: Yes Justification of admission: Patient has tachycardia (> 100 beats per minute) or hypotension (SBP < 90 mm Hg) leading to inadequate systemic perfusion as indicated by severe/persistent altered mental status. Other Justification HUY WEBB MD May 29, 2021 11:31
--- NOTE | 2021-05-29 11:32 | PDOC ---
Renal-Progress Notes Subjective Notes Notes NO NEW ISSUES History of Present Illness Hx of present illness WEANING FROM RESP SUPPORT Vitals Vitals Vital Signs Date Time Temp Pulse Resp B/P (MAP) Pulse Ox O2 Delivery O2 Flow Rate FiO2 05/29/21 11:24 99 Ventilator 05/29/21 10:00 109 30 172/86 (114) 05/29/21 08:00 99.5 99.5 05/29/21 07:26 10.0 Weight Weight [ ] I.O. Intake and Output Intake and Output 05/29/21 07:00 Intake Total 2103.68 ml Output Total 2880 ml Balance -776.32 ml IV Total 2018.68 ml Blood Product 85 ml Output Urine Total 2500 ml Gastric Drainage Total 200 ml Drainage Total 180 ml Labs Labs Laboratory Tests Test 05/28/21 11:45 05/28/21 17:49 05/28/21 23:38 05/29/21 05:00 Glucose (Fingerstick) 90 mg/dL (70-99) 142 mg/dL (70-99) 212 mg/dL (70-99) White Blood Count 17.7 x10^3/uL (4.0-11.0) Red Blood Count 2.69 x10^6/uL (4.30-5.70) Hemoglobin 7.1 g/dL (13.0-17.5) Hematocrit 22.8 % (39.0-53.0) Mean Corpuscular Volume 85 fL (79-100) Mean Corpuscular Hemoglobin 27 pg (25-35) Mean Corpuscular Hemoglobin Concent 31 g/dL (31-37) Red Cell Distribution Width 18.4 % (11.5-14.5) Platelet Count 446 x10^3/uL (140-400) Neutrophils (%) (Auto) 58 % (31-73) Lymphocytes (%) (Auto) 25 % (24-48) Monocytes (%) (Auto) 13 % (0-9) Eosinophils (%) (Auto) 4 % (0-3) Basophils (%) (Auto) 1 % (0-3) Neutrophils # (Auto) 10.2 x10^3/uL (1.8-7.7) Lymphocytes # (Auto) 4.4 x10^3/uL (1.0-4.8) Monocytes # (Auto) 2.2 x10^3/uL (0.0-1.1) Eosinophils # (Auto) 0.7 x10^3/uL (0.0-0.7) Basophils # (Auto) 0.2 x10^3/uL (0.0-0.2) Sodium Level 142 mmol/L (136-145) Potassium Level 4.2 mmol/L (3.5-5.1) Chloride Level 107 mmol/L (98-107) Carbon Dioxide Level 27 mmol/L (21-32) Anion Gap 8 (6-14) Blood Urea Nitrogen 28 mg/dL (8-26) Creatinine 2.1 mg/dL (0.7-1.3) Estimated GFR (Cockcroft-Gault) 37.5 Glucose Level 255 mg/dL (70-99) Calcium Level 9.0 mg/dL (8.5-10.1) Phosphorus Level 2.3 mg/dL (2.6-4.7) Magnesium Level 1.9 mg/dL (1.8-2.4) Test 05/29/21 05:10 Glucose (Fingerstick) 254 mg/dL (70-99) Micro Micro Microbiology 05/11/21 Gram Stain Evaluation - Final, Complete 05/11/21 Respiratory Culture - Final, Complete 05/04/21 Gram Stain - Final, Complete 05/04/21 Aerobic Culture - Final, Complete 05/04/21 Blood Culture - Final, Complete NO GROWTH AFTER 5 DAYS Review of Systems Constitutional: yes: unresponsive, other Physical Exam General Appearance: no apparent distress, other (ON THE VENT) Skin: warm, dry, edema Respiratory: decreased breath sounds Heart: S1S2 Abdomen: soft, N/T, distension, other Genitourinary: bladder flat, mooney catheter Extremities: pulses present, edema Neurology: other (sedated) Musculoskeletal: Other Assessment Assessment IMP HYPONATREMIA-RESOLVED HYPOKALEMIA-CORRECTED LOW PO4 LOW MAG-CORRECTED ILDA-ATN-UO IMPROVED CKD - SUSPECT STAGE 3 ACUTE HYPOXIC RESP FAILURE COVID 19 PNEUMONIA MET ACIDOSIS-BETTER LEUCOCYTOSIS ANEMIA S/P TRACH ANASARCA ILEUS PLAN RESP SUPPORT REPLACE PO4 NUTRITION GOOD RESPONSE TO DIURETICS WITH CLEARANCE MAINTAINED CONT TO HOLD HD PROMISE TRANSFER PENDING D/W DR FISHMAN WILL FOLLOW JEANINE NEWTON MD May 29, 2021 11:32
[2021-05-29] MEDS ORDERED: SODIUM PHOSPHATE 15 MMOL in IV NORMAL SALINE 100ML 100 ML IV ONE (11:45)
--- NOTE | 2021-05-29 14:34 | RAD ---
EXAM: Abdomen, single view. HISTORY: Ileus. COMPARISON: 05/19/2021 FINDINGS: Frontal views of the abdomen are obtained. There has been slight interval decrease in diste nded air-filled loops of bowel throughout the abdomen. No transition point is seen. There are left gr eater than right pleural effusions and there is bilateral lower lobe infiltrate. There is cardiomegal y. There is a nasogastric tube within the stomach. There is lumbar scoliosis. IMPRESSION: Slight interval decrease in distended air-filled loops of bowel throughout the abdomen. T his favors decreasing ileus. Electronically signed by: Cynthia Duenas MD (05/29/2021 2:31 PM) [id number]
[2021-05-29] MEDS: ACETAMINOPHEN 650 MG SUPP.RECT. PR PRN (16:37)
[2021-05-29] MEDS: BISACODYL 10 MG SUPP.RECT. PR PRN (16:37)
[2021-05-29] MEDS: MONTELUKAST SODIUM 10 MG TABLET. PO SCH (20:01)
[2021-05-29] MEDS: ATORVASTATIN CALCIUM 40 MG TABLET. PO SCH (20:01)
[2021-05-29] MEDS: INSULIN GLARGINE SYRINGE. SQ SCH (21:16)
[2021-05-29] MEDS ORDERED: TOTAL PARENTERAL NUTRITION IV SCH (22:00)
[2021-05-29] MEDS ORDERED: AMINO ACID IV SCH (22:00)
[2021-05-29] MEDS ORDERED: DEXTROSE 70% IV SCH (22:00)
[2021-05-29] MEDS ORDERED: [UNRECOGNIZED DRUG - OTHER] IV SCH (22:00)
[2021-05-30] VITALS (24 sets, daily range): BP systolic 136–200; BP diastolic 64–120
[2021-05-30] MEDS: DEXMEDETOMIDINE 400 MCG in IV NORMAL SALINE 100ML 96 ML IV PRN ×7 (02:49→21:56)
[2021-05-30 06:03] LABS: CALCIUM 8.9 mg/dL (8.5-10.1); CREATININE 2.4 mg/dL (0.7-1.3); GFR 32.2; MAGNESIUM 1.9 mg/dL (1.8-2.4); PHOSPHORUS 2.8 mg/dL (2.6-4.7); POTASSIUM 3.8 mmol/L (3.5-5.1)
[2021-05-30] MEDS: METOPROLOL IV PUSH 5 MG/5 ML VIAL. IVP SCH ×4 (06:06→23:32)
[2021-05-30] MEDS: HEPARIN for SUB-Q USE 5,000 UNIT/ML VIAL. SQ SCH (06:07)
[2021-05-30] MEDS: INSULIN LISPRO 300 UNITS/3 ML VIAL. SQ SCH ×4 (06:09→23:35)
--- NOTE | 2021-05-30 07:32 | PDOC ---
Infectious Disease Note Subjective: Subjective Pt remains vent dependent T max 100.1 Discussed with nursing staff Vital Signs: Vital Signs Vital Signs Date Time Temp Pulse Resp B/P (MAP) Pulse Ox O2 Delivery O2 Flow Rate FiO2 05/30/21 06:06 90 193/91 05/30/21 06:00 20 100 Ventilator 05/30/21 04:00 98.9 98.9 05/29/21 07:26 10.0 Physical Exam: PHYSICAL EXAM GENERAL: Well-developed and well-nourished male, sedated HEENT: Normocephalic, atraumatic, redness and erythema of both eyes improved, NG tube present NECK: right dialysis catheter present clean,central line changed ( 05/11) Trach + HEART: S1, S2. LUNGS: Decreased breath sounds. ABDOMEN: Less distended, bowel sounds present GENITOURINARY: Nieves in place. EXTREMITIES: Edema present. DERMATOLOGIC: Warm, dry, no generalized rash. NEUROLOGIC: Opens eyes PICC line clean Medications: Inpatient Meds: Medications reviewed. Labs: Lab Laboratory Tests Test 05/29/21 18:08 05/29/21 23:43 05/30/21 05:00 05/30/21 05:21 Glucose (Fingerstick) 319 mg/dL (70-99) 338 mg/dL (70-99) 293 mg/dL (70-99) Sodium Level 144 mmol/L (136-145) Potassium Level 3.8 mmol/L (3.5-5.1) Chloride Level 109 mmol/L (98-107) Carbon Dioxide Level 27 mmol/L (21-32) Anion Gap 8 (6-14) Blood Urea Nitrogen 36 mg/dL (8-26) Creatinine 2.4 mg/dL (0.7-1.3) Estimated GFR (Cockcroft-Gault) 32.2 Glucose Level 321 mg/dL (70-99) Calcium Level 8.9 mg/dL (8.5-10.1) Phosphorus Level 2.8 mg/dL (2.6-4.7) Magnesium Level 1.9 mg/dL (1.8-2.4) Objective: Assessment: 1. Febrile illnessresolved 2. Leukocytosis, was on steroids,ileus could contribute,improving 3. COVID-19 pneumonia. 4. Acute hypoxic respiratory failure status post intubation.Now S/P Trach 05/15 5. Congestive heart failure, acute on chronic. 6. Acute kidney injury on chronic kidney disease on hemodialysis. 7. Diabetes mellitus 2. 8. Atrial fibrillation. 9. Anemia. 10. Protein-calorie malnutrition. 11. Hypertention 12.Hyponatremia 13. Ileus, Bowel obstruction Peg TF on hold, OG to LIS 14.on PPN 15.Mild to Moderate Pleural effusion 16.Lt eye conjunctivitis resolved Plan: Plan of Care Cefepime and flagyl Monitor labs and cultures HDC/ Central line changed on 05/11, Continue supportive care. cont local eye care DC central line, change Nieves if not done already C. difficile PCR negative CBC ordered Remains critically ill Discussed with nursing staff ALAYNA RIVERO MD May 30, 2021 07:32
[2021-05-30] MEDS: ASPIRIN CHEWABLE 81 MG TABLET. PO SCH ×2 (08:00→08:20)
[2021-05-30 08:08] LABS: BASO # 0.2 x10^3/uL (0.0-0.2); BASO % 1 % (0-3); EOS # 0.3 x10^3/uL (0.0-0.7); EOS % 2 % (0-3); LYMPH # 3.9 x10^3/uL (1.0-4.8); LYMPH % 19 % (24-48); MEAN CORPUSCULAR HEMOGLOBIN 27 pg (25-35); MEAN CORPUSCULAR HGB CONC 31 g/dL (31-37); MEAN CORPUSCULAR VOLUME 85 fL (79-100); MONO # 2.5 x10^3/uL (0.0-1.1); MONO % 12 % (0-9); NEUT # 13.5 x10^3/uL (1.8-7.7); NEUT % 66 % (31-73); PLATELET COUNT 424 x10^3/uL (140-400); RED BLOOD COUNT 2.58 x10^6/uL (4.30-5.70); WHITE BLOOD COUNT 20.4 x10^3/uL (4.0-11.0)
[2021-05-30 08:13] LABS: HEMOGLOBIN 6.9 g/dL (13.0-17.5)
[2021-05-30] MEDS: PANTOPRAZOLE IV PUSH 40 MG VIAL. IVP SCH (08:20)
[2021-05-30] MEDS: FUROSEMIDE 40 MG/4 ML VIAL. IVP SCH ×3 (08:20→20:58)
--- NOTE | 2021-05-30 08:39 | RAD ---
EXAM: XR CHEST 1V 05/30/2021 4:15 AM CLINICAL INDICATION: Respiratory failure COMPARISON: Chest radiograph 05/23/2021 TECHNIQUE: AP upright view of the chest FINDINGS: The tracheostomy tube terminates between the clavicular heads. There are 2 right internal jugular central venous catheter is with tips at the superior cavoatrial junction. A nasogastric tube terminates below diaphragm out of view. Cardiomegaly is unchanged. Lungs are hypoexpanded. Pulmonary vasculature is indistinct. There are unchanged small to moderate layering pleural effusions with basi lar predominant interstitial and airspace opacities. No pneumothorax. IMPRESSION: 1. Unchanged lines and tubes. 2. Unchanged small to moderate layering pleural effusions and pulmonary opacities suspicious for pulm onary edema. Pneumonia is also possible Electronically signed by: Grecia Mcallister MD (05/30/2021 8:37 AM) [id number]
[2021-05-30] MEDS: NYSTATIN TOPICAL POWDER 15GM BOTTLE. TP SCH ×2 (08:54→21:00)
--- NOTE | 2021-05-30 09:22 | NUR ---
blood cultures sent times 2, one from the central line, the other from the temporary dialysis catheter. Nieves changed out. Respiratory culture sent.
--- NOTE | 2021-05-30 09:30 | NUR ---
dR Bush, PT hr SHOW A FIB WITH 6-12 beat runs of vtach. Pt awake moving about. Vent setting changed back to an AC mode per Dr Bush
[2021-05-30] MEDS: INSULIN GLARGINE SYRINGE. SQ SCH ×2 (09:40→20:57)
[2021-05-30] MEDS: CEFEPIME HCL IV Push 1 GM VIAL. IVP SCH ×2 (09:50→20:59)
--- NOTE | 2021-05-30 10:45 | PDOC ---
G I PROGRESS NOTE Subjective Sedated on ventilator. Objective Had a stool after suppository; apparently not that impressive. NG output still ~250cc/shift (500 per day?). Physical Exam Lungs clear anteriorly. RRR Abdomen distended with ventral hernia. Don't hear any bowel sounds. Review of Relevant I have reviewed the following items juanita (where applicable) has been applied. Labs Laboratory Tests Test 05/28/21 11:45 05/28/21 17:49 05/28/21 23:38 05/29/21 05:00 Glucose (Fingerstick) 90 mg/dL (70-99) 142 mg/dL (70-99) 212 mg/dL (70-99) White Blood Count 17.7 x10^3/uL (4.0-11.0) Red Blood Count 2.69 x10^6/uL (4.30-5.70) Hemoglobin 7.1 g/dL (13.0-17.5) Hematocrit 22.8 % (39.0-53.0) Mean Corpuscular Volume 85 fL (79-100) Mean Corpuscular Hemoglobin 27 pg (25-35) Mean Corpuscular Hemoglobin Concent 31 g/dL (31-37) Red Cell Distribution Width 18.4 % (11.5-14.5) Platelet Count 446 x10^3/uL (140-400) Neutrophils (%) (Auto) 58 % (31-73) Lymphocytes (%) (Auto) 25 % (24-48) Monocytes (%) (Auto) 13 % (0-9) Eosinophils (%) (Auto) 4 % (0-3) Basophils (%) (Auto) 1 % (0-3) Neutrophils # (Auto) 10.2 x10^3/uL (1.8-7.7) Lymphocytes # (Auto) 4.4 x10^3/uL (1.0-4.8) Monocytes # (Auto) 2.2 x10^3/uL (0.0-1.1) Eosinophils # (Auto) 0.7 x10^3/uL (0.0-0.7) Basophils # (Auto) 0.2 x10^3/uL (0.0-0.2) Sodium Level 142 mmol/L (136-145) Potassium Level 4.2 mmol/L (3.5-5.1) Chloride Level 107 mmol/L (98-107) Carbon Dioxide Level 27 mmol/L (21-32) Anion Gap 8 (6-14) Blood Urea Nitrogen 28 mg/dL (8-26) Creatinine 2.1 mg/dL (0.7-1.3) Estimated GFR (Cockcroft-Gault) 37.5 Glucose Level 255 mg/dL (70-99) Calcium Level 9.0 mg/dL (8.5-10.1) Phosphorus Level 2.3 mg/dL (2.6-4.7) Magnesium Level 1.9 mg/dL (1.8-2.4) Test 05/29/21 05:10 05/29/21 18:08 05/29/21 23:43 05/30/21 05:00 Glucose (Fingerstick) 254 mg/dL (70-99) 319 mg/dL (70-99) 338 mg/dL (70-99) Sodium Level 144 mmol/L (136-145) Potassium Level 3.8 mmol/L (3.5-5.1) Chloride Level 109 mmol/L (98-107) Carbon Dioxide Level 27 mmol/L (21-32) Anion Gap 8 (6-14) Blood Urea Nitrogen 36 mg/dL (8-26) Creatinine 2.4 mg/dL (0.7-1.3) Estimated GFR (Cockcroft-Gault) 32.2 Glucose Level 321 mg/dL (70-99) Calcium Level 8.9 mg/dL (8.5-10.1) Phosphorus Level 2.8 mg/dL (2.6-4.7) Magnesium Level 1.9 mg/dL (1.8-2.4) Test 05/30/21 05:21 05/30/21 07:30 Glucose (Fingerstick) 293 mg/dL (70-99) White Blood Count 20.4 x10^3/uL (4.0-11.0) Red Blood Count 2.58 x10^6/uL (4.30-5.70) Hemoglobin 6.9 g/dL (13.0-17.5) Hematocrit 22.0 % (39.0-53.0) Mean Corpuscular Volume 85 fL (79-100) Mean Corpuscular Hemoglobin 27 pg (25-35) Mean Corpuscular Hemoglobin Concent 31 g/dL (31-37) Red Cell Distribution Width 19.0 % (11.5-14.5) Platelet Count 424 x10^3/uL (140-400) Neutrophils (%) (Auto) 66 % (31-73) Lymphocytes (%) (Auto) 19 % (24-48) Monocytes (%) (Auto) 12 % (0-9) Eosinophils (%) (Auto) 2 % (0-3) Basophils (%) (Auto) 1 % (0-3) Neutrophils # (Auto) 13.5 x10^3/uL (1.8-7.7) Lymphocytes # (Auto) 3.9 x10^3/uL (1.0-4.8) Monocytes # (Auto) 2.5 x10^3/uL (0.0-1.1) Eosinophils # (Auto) 0.3 x10^3/uL (0.0-0.7) Basophils # (Auto) 0.2 x10^3/uL (0.0-0.2) Laboratory Tests Test 05/29/21 18:08 05/29/21 23:43 05/30/21 05:00 05/30/21 05:21 Glucose (Fingerstick) 319 mg/dL (70-99) 338 mg/dL (70-99) 293 mg/dL (70-99) Sodium Level 144 mmol/L (136-145) Potassium Level 3.8 mmol/L (3.5-5.1) Chloride Level 109 mmol/L (98-107) Carbon Dioxide Level 27 mmol/L (21-32) Anion Gap 8 (6-14) Blood Urea Nitrogen 36 mg/dL (8-26) Creatinine 2.4 mg/dL (0.7-1.3) Estimated GFR (Cockcroft-Gault) 32.2 Glucose Level 321 mg/dL (70-99) Calcium Level 8.9 mg/dL (8.5-10.1) Phosphorus Level 2.8 mg/dL (2.6-4.7) Magnesium Level 1.9 mg/dL (1.8-2.4) Test 05/30/21 07:30 White Blood Count 20.4 x10^3/uL (4.0-11.0) Red Blood Count 2.58 x10^6/uL (4.30-5.70) Hemoglobin 6.9 g/dL (13.0-17.5) Hematocrit 22.0 % (39.0-53.0) Mean Corpuscular Volume 85 fL (79-100) Mean Corpuscular Hemoglobin 27 pg (25-35) Mean Corpuscular Hemoglobin Concent 31 g/dL (31-37) Red Cell Distribution Width 19.0 % (11.5-14.5) Platelet Count 424 x10^3/uL (140-400) Neutrophils (%) (Auto) 66 % (31-73) Lymphocytes (%) (Auto) 19 % (24-48) Monocytes (%) (Auto) 12 % (0-9) Eosinophils (%) (Auto) 2 % (0-3) Basophils (%) (Auto) 1 % (0-3) Neutrophils # (Auto) 13.5 x10^3/uL (1.8-7.7) Lymphocytes # (Auto) 3.9 x10^3/uL (1.0-4.8) Monocytes # (Auto) 2.5 x10^3/uL (0.0-1.1) Eosinophils # (Auto) 0.3 x10^3/uL (0.0-0.7) Basophils # (Auto) 0.2 x10^3/uL (0.0-0.2) Microbiology 05/11/21 Gram Stain Evaluation - Final, Complete 05/11/21 Respiratory Culture - Final, Complete 05/04/21 Gram Stain - Final, Complete 05/04/21 Aerobic Culture - Final, Complete 05/04/21 Blood Culture - Final, Complete NO GROWTH AFTER 5 DAYS Vitals/I & O Vital Sign - Last 24 Hours 05/29/21 05/29/21 05/29/21 05/29/21 11:00 11:24 12:00 12:00 Temp 99.2 99.2 Pulse 86 83 Resp 26 25 B/P (MAP) 161/75 (103) 175/85 (115) Pulse Ox 100 99 100 O2 Delivery Ventilator Ventilator Ventilator Mechanical Ventilator 05/29/21 05/29/21 05/29/21 05/29/21 13:00 13:02 14:00 15:00 Pulse 95 109 77 Resp 25 26 18 B/P (MAP) 159/72 (101) 177/97 (123) 182/97 (125) Pulse Ox 100 100 100 100 O2 Delivery Ventilator Ventilator Ventilator Ventilator 05/29/21 05/29/21 05/29/21 05/29/21 16:00 16:00 16:03 17:00 Temp 100.1 100.1 Pulse 87 87 Resp 31 20 B/P (MAP) 183/90 (121) 164/74 (104) Pulse Ox 100 99 100 O2 Delivery Ventilator Mechanical Ventilator Ventilator Ventilator 05/29/21 05/29/21 05/29/21 05/29/21 17:29 18:00 18:10 18:12 Pulse 76 95 Resp 19 20 B/P (MAP) 137/67 (90) 137/67 Pulse Ox 100 100 100 O2 Delivery Ventilator Ventilator Ventilator 05/29/21 05/29/21 05/29/21 05/29/21 19:00 20:00 20:00 20:14 Temp 100.0 100.0 Pulse 92 87 Resp 22 18 B/P (MAP) 176/76 (109) 177/90 (119) Pulse Ox 99 100 99 O2 Delivery Ventilator Ventilator Mechanical Ventilator Ventilator 05/29/21 05/29/21 05/29/21 05/29/21 21:00 22:00 23:00 23:41 Pulse 115 78 105 Resp 24 18 24 B/P (MAP) 154/69 (97) 137/61 (86) 115/65 (82) Pulse Ox 99 100 100 95 O2 Delivery Ventilator Ventilator Ventilator Ventilator 05/29/21 05/30/21 05/30/21 05/30/21 23:45 00:00 00:00 01:00 Temp 99.3 99.3 Pulse 92 74 92 Resp 20 18 B/P (MAP) 177/86 186/80 (115) 145/64 (91) Pulse Ox 100 100 O2 Delivery Ventilator Mechanical Ventilator Ventilator 05/30/21 05/30/21 05/30/21 05/30/21 02:00 02:05 03:00 04:00 Pulse 82 92 Resp 24 21 B/P (MAP) 189/74 (112) 196/94 (128) Pulse Ox 100 95 100 O2 Delivery Ventilator Ventilator Ventilator Mechanical Ventilator 05/30/21 05/30/21 05/30/21 05/30/21 04:00 05:00 05:43 06:00 Temp 98.9 98.9 Pulse 102 99 90 Resp 23 26 20 B/P (MAP) 153/90 (111) 178/81 (113) 193/91 (125) Pulse Ox 100 100 92 100 O2 Delivery Ventilator Ventilator Ventilator Ventilator 05/30/21 05/30/21 05/30/21 05/30/21 06:06 07:38 08:00 08:00 Temp 98.9 98.9 Pulse 90 83 Resp 27 B/P (MAP) 193/91 196/99 (131) Pulse Ox 98 99 O2 Delivery Ventilator Mechanical Ventilator Ventilator 05/30/21 05/30/21 05/30/21 05/30/21 09:27 09:30 09:39 09:57 Pulse 118 Resp 36 36 B/P (MAP) 185/91 (122) Pulse Ox 98 99 99 97 O2 Delivery Ventilator Ventilator Ventilator Ventilator 05/30/21 10:06 Pulse 103 Resp 28 B/P (MAP) 171/91 (117) Pulse Ox 99 O2 Delivery Ventilator Intake and Output 05/29/21 05/29/21 05/30/21 15:00 23:00 07:00 Intake Total 2165 ml Output Total 760 ml 385 ml 1175 ml Balance -760 ml -385 ml 990 ml Problem List Problems Medical Problems: (1) Elevated troponin Status: Acute (2) Person under investigation for COVID-19 Status: Acute (3) Pulmonary edema Status: Acute Assessment Clinically ileus persists. Plan of Care Note Continue as now. OK to give bisacodyl supp prn. Justicifation of Admission Dx: Justifications for Admission: Justification of Admission Dx: Yes Aspiration Pneumonia: Hemodynamic Instability CLINT PRICE MD May 30, 2021 10:45
--- NOTE | 2021-05-30 10:58 | PDOC ---
Renal-Progress Notes Subjective Notes Notes UNABLE TO RESPOND BUT AWAKE History of Present Illness Hx of present illness STILL HAS LOTS OF EDEMA, UO OK Vitals Vitals Vital Signs Date Time Temp Pulse Resp B/P (MAP) Pulse Ox O2 Delivery O2 Flow Rate FiO2 05/30/21 10:06 103 28 171/91 (117) 99 Ventilator 05/30/21 08:00 98.9 98.9 05/29/21 07:26 10.0 Weight Weight [ ] I.O. Intake and Output Intake and Output 05/30/21 07:00 Intake Total 2165 ml Output Total 2320 ml Balance -155 ml IV Total 2165 ml Output Urine Total 2020 ml Gastric Drainage Total 300 ml # Bowel Movements 1 Labs Labs Laboratory Tests Test 05/29/21 18:08 05/29/21 23:43 05/30/21 05:00 05/30/21 05:21 Glucose (Fingerstick) 319 mg/dL (70-99) 338 mg/dL (70-99) 293 mg/dL (70-99) Sodium Level 144 mmol/L (136-145) Potassium Level 3.8 mmol/L (3.5-5.1) Chloride Level 109 mmol/L (98-107) Carbon Dioxide Level 27 mmol/L (21-32) Anion Gap 8 (6-14) Blood Urea Nitrogen 36 mg/dL (8-26) Creatinine 2.4 mg/dL (0.7-1.3) Estimated GFR (Cockcroft-Gault) 32.2 Glucose Level 321 mg/dL (70-99) Calcium Level 8.9 mg/dL (8.5-10.1) Phosphorus Level 2.8 mg/dL (2.6-4.7) Magnesium Level 1.9 mg/dL (1.8-2.4) Test 05/30/21 07:30 White Blood Count 20.4 x10^3/uL (4.0-11.0) Red Blood Count 2.58 x10^6/uL (4.30-5.70) Hemoglobin 6.9 g/dL (13.0-17.5) Hematocrit 22.0 % (39.0-53.0) Mean Corpuscular Volume 85 fL (79-100) Mean Corpuscular Hemoglobin 27 pg (25-35) Mean Corpuscular Hemoglobin Concent 31 g/dL (31-37) Red Cell Distribution Width 19.0 % (11.5-14.5) Platelet Count 424 x10^3/uL (140-400) Neutrophils (%) (Auto) 66 % (31-73) Lymphocytes (%) (Auto) 19 % (24-48) Monocytes (%) (Auto) 12 % (0-9) Eosinophils (%) (Auto) 2 % (0-3) Basophils (%) (Auto) 1 % (0-3) Neutrophils # (Auto) 13.5 x10^3/uL (1.8-7.7) Lymphocytes # (Auto) 3.9 x10^3/uL (1.0-4.8) Monocytes # (Auto) 2.5 x10^3/uL (0.0-1.1) Eosinophils # (Auto) 0.3 x10^3/uL (0.0-0.7) Basophils # (Auto) 0.2 x10^3/uL (0.0-0.2) Micro Micro Microbiology 05/11/21 Gram Stain Evaluation - Final, Complete 05/11/21 Respiratory Culture - Final, Complete 05/04/21 Gram Stain - Final, Complete 05/04/21 Aerobic Culture - Final, Complete 05/04/21 Blood Culture - Final, Complete NO GROWTH AFTER 5 DAYS Review of Systems Constitutional: yes: unresponsive, other Physical Exam General Appearance: no apparent distress, other (ON THE VENT) Skin: warm, dry, edema Respiratory: decreased breath sounds Heart: S1S2 Abdomen: soft, N/T, distension, other Genitourinary: bladder flat, mooney catheter Extremities: pulses present, edema Neurology: other (sedated) Musculoskeletal: Other Assessment Assessment IMP HYPONATREMIA-RESOLVED HYPOKALEMIA-CORRECTED LOW PO4-CORRECTED LOW MAG-CORRECTED ILDA-ATN-UO IMPROVED CKD - SUSPECT STAGE 3 ACUTE HYPOXIC RESP FAILURE COVID 19 PNEUMONIA MET ACIDOSIS-BETTER LEUCOCYTOSIS ANEMIA S/P TRACH ANASARCA ILEUS PLAN RESP SUPPORT NUTRITION-TPN UO NOT ADEQUATE AND CR INCREASING AGAIN WILL NEED TO RESUME HD WILL HD TODAY UF ABOUT 4.0 LITERS IF TOLERATED ALSO PRBC TODAY WITH HD ANTIBIOTICS PROMISE TRANSFER PENDING D/W DR FISHMAN WILL FOLLOW JEANINE NEWTON MD May 30, 2021 10:58
--- NOTE | 2021-05-30 11:09 | PDOC ---
PULMONARY PROGRESS NOTES DATE: 05/30/21 TIME: 11:04 Subjective upon exam pt. on PS with increased RR, HR and multiple PVC noted to be in afib anemia on labs today Vitals Vital Signs Date Time Temp Pulse Resp B/P (MAP) Pulse Ox O2 Delivery O2 Flow Rate FiO2 05/30/21 10:06 103 28 171/91 (117) 99 Ventilator 05/30/21 08:00 98.9 98.9 05/29/21 07:26 10.0 Comments Tracheostomy unable to report HEENT: Other (Trachea midline) Lungs: Crackles Cardiovascular: S1, S2 Abdomen: Soft Extremities: No Edema Skin: Warm Labs Laboratory Tests Test 05/28/21 11:45 05/28/21 17:49 05/28/21 23:38 05/29/21 05:00 Glucose (Fingerstick) 90 mg/dL (70-99) 142 mg/dL (70-99) 212 mg/dL (70-99) White Blood Count 17.7 x10^3/uL (4.0-11.0) Red Blood Count 2.69 x10^6/uL (4.30-5.70) Hemoglobin 7.1 g/dL (13.0-17.5) Hematocrit 22.8 % (39.0-53.0) Mean Corpuscular Volume 85 fL (79-100) Mean Corpuscular Hemoglobin 27 pg (25-35) Mean Corpuscular Hemoglobin Concent 31 g/dL (31-37) Red Cell Distribution Width 18.4 % (11.5-14.5) Platelet Count 446 x10^3/uL (140-400) Neutrophils (%) (Auto) 58 % (31-73) Lymphocytes (%) (Auto) 25 % (24-48) Monocytes (%) (Auto) 13 % (0-9) Eosinophils (%) (Auto) 4 % (0-3) Basophils (%) (Auto) 1 % (0-3) Neutrophils # (Auto) 10.2 x10^3/uL (1.8-7.7) Lymphocytes # (Auto) 4.4 x10^3/uL (1.0-4.8) Monocytes # (Auto) 2.2 x10^3/uL (0.0-1.1) Eosinophils # (Auto) 0.7 x10^3/uL (0.0-0.7) Basophils # (Auto) 0.2 x10^3/uL (0.0-0.2) Sodium Level 142 mmol/L (136-145) Potassium Level 4.2 mmol/L (3.5-5.1) Chloride Level 107 mmol/L (98-107) Carbon Dioxide Level 27 mmol/L (21-32) Anion Gap 8 (6-14) Blood Urea Nitrogen 28 mg/dL (8-26) Creatinine 2.1 mg/dL (0.7-1.3) Estimated GFR (Cockcroft-Gault) 37.5 Glucose Level 255 mg/dL (70-99) Calcium Level 9.0 mg/dL (8.5-10.1) Phosphorus Level 2.3 mg/dL (2.6-4.7) Magnesium Level 1.9 mg/dL (1.8-2.4) Test 05/29/21 05:10 05/29/21 18:08 05/29/21 23:43 05/30/21 05:00 Glucose (Fingerstick) 254 mg/dL (70-99) 319 mg/dL (70-99) 338 mg/dL (70-99) Sodium Level 144 mmol/L (136-145) Potassium Level 3.8 mmol/L (3.5-5.1) Chloride Level 109 mmol/L (98-107) Carbon Dioxide Level 27 mmol/L (21-32) Anion Gap 8 (6-14) Blood Urea Nitrogen 36 mg/dL (8-26) Creatinine 2.4 mg/dL (0.7-1.3) Estimated GFR (Cockcroft-Gault) 32.2 Glucose Level 321 mg/dL (70-99) Calcium Level 8.9 mg/dL (8.5-10.1) Phosphorus Level 2.8 mg/dL (2.6-4.7) Magnesium Level 1.9 mg/dL (1.8-2.4) Test 05/30/21 05:21 05/30/21 07:30 Glucose (Fingerstick) 293 mg/dL (70-99) White Blood Count 20.4 x10^3/uL (4.0-11.0) Red Blood Count 2.58 x10^6/uL (4.30-5.70) Hemoglobin 6.9 g/dL (13.0-17.5) Hematocrit 22.0 % (39.0-53.0) Mean Corpuscular Volume 85 fL (79-100) Mean Corpuscular Hemoglobin 27 pg (25-35) Mean Corpuscular Hemoglobin Concent 31 g/dL (31-37) Red Cell Distribution Width 19.0 % (11.5-14.5) Platelet Count 424 x10^3/uL (140-400) Neutrophils (%) (Auto) 66 % (31-73) Lymphocytes (%) (Auto) 19 % (24-48) Monocytes (%) (Auto) 12 % (0-9) Eosinophils (%) (Auto) 2 % (0-3) Basophils (%) (Auto) 1 % (0-3) Neutrophils # (Auto) 13.5 x10^3/uL (1.8-7.7) Lymphocytes # (Auto) 3.9 x10^3/uL (1.0-4.8) Monocytes # (Auto) 2.5 x10^3/uL (0.0-1.1) Eosinophils # (Auto) 0.3 x10^3/uL (0.0-0.7) Basophils # (Auto) 0.2 x10^3/uL (0.0-0.2) Laboratory Tests Test 05/29/21 18:08 05/29/21 23:43 05/30/21 05:00 05/30/21 05:21 Glucose (Fingerstick) 319 mg/dL (70-99) 338 mg/dL (70-99) 293 mg/dL (70-99) Sodium Level 144 mmol/L (136-145) Potassium Level 3.8 mmol/L (3.5-5.1) Chloride Level 109 mmol/L (98-107) Carbon Dioxide Level 27 mmol/L (21-32) Anion Gap 8 (6-14) Blood Urea Nitrogen 36 mg/dL (8-26) Creatinine 2.4 mg/dL (0.7-1.3) Estimated GFR (Cockcroft-Gault) 32.2 Glucose Level 321 mg/dL (70-99) Calcium Level 8.9 mg/dL (8.5-10.1) Phosphorus Level 2.8 mg/dL (2.6-4.7) Magnesium Level 1.9 mg/dL (1.8-2.4) Test 05/30/21 07:30 White Blood Count 20.4 x10^3/uL (4.0-11.0) Red Blood Count 2.58 x10^6/uL (4.30-5.70) Hemoglobin 6.9 g/dL (13.0-17.5) Hematocrit 22.0 % (39.0-53.0) Mean Corpuscular Volume 85 fL (79-100) Mean Corpuscular Hemoglobin 27 pg (25-35) Mean Corpuscular Hemoglobin Concent 31 g/dL (31-37) Red Cell Distribution Width 19.0 % (11.5-14.5) Platelet Count 424 x10^3/uL (140-400) Neutrophils (%) (Auto) 66 % (31-73) Lymphocytes (%) (Auto) 19 % (24-48) Monocytes (%) (Auto) 12 % (0-9) Eosinophils (%) (Auto) 2 % (0-3) Basophils (%) (Auto) 1 % (0-3) Neutrophils # (Auto) 13.5 x10^3/uL (1.8-7.7) Lymphocytes # (Auto) 3.9 x10^3/uL (1.0-4.8) Monocytes # (Auto) 2.5 x10^3/uL (0.0-1.1) Eosinophils # (Auto) 0.3 x10^3/uL (0.0-0.7) Basophils # (Auto) 0.2 x10^3/uL (0.0-0.2) Medications Active Scripts Medications Dose Route/Sig Max Daily Dose Days Date Category Glyburide 2.5 Mg Tablet 1 Tab PO DAILY 04/19/21 Rx Polyethylene Glycol 3350 17 Gm Powd.pack 17 Gm PO DAILY 04/19/21 Rx Dok (Docusate Sodium) 100 Mg Capsule 100 Mg PO PRN DAILY PRN 30 04/19/21 Rx Bisacodyl 5 Mg Tablet. 5 Mg PO PRN DAILY PRN 04/19/21 Rx Acetaminophen 325 Mg Tablet 650 Mg PO PRN Q4HRS PRN 04/19/21 Rx Aspirin Ec (Aspirin) 81 Mg Tablet. 81 Mg PO DAILYWBKFT 30 04/19/21 Rx Hydralazine Hcl 25 Mg Tablet 25 Mg PO QID 30 04/19/21 Rx Fenofibrate 54 Mg Tablet 1 Tab PO DAILY 04/17/21 Reported Potassium Chloride (Potassium Chloride) 20 Meq Tablet.er 20 Meq PO DAILY 04/17/21 Reported Coreg (Carvedilol) 12.5 Mg Tablet 37.5 Mg PO BIDWMEALS 04/17/21 Reported Rosuvastatin Calcium 40 Mg Tablet 40 Mg PO QHS 04/17/21 Reported Gabapentin (Gabapentin) 100 Mg Capsule 200 Mg PO BID 04/17/21 Reported Montelukast Sodium Tablet (Montelukast Sodium) 10 Mg Tablet 10 Mg PO HS 04/17/21 Reported Protonix (Pantoprazole Sodium) 20 Mg Tablet. 2 Tab PO DAILY 04/17/21 Reported Amlodipine Besylate 5 Mg Tablet 5 Mg PO DAILY 04/17/21 Reported Furosemide 40 Mg Tablet 1 Tab PO DAILY 04/17/21 Reported Proair Hfa Inhaler (Albuterol Sulfate) 8.5 Gm Hfa.aer.ad 2 Puff IH PRN Q4-6HRS PRN 21 04/16/21 Reported Advair 100-50 Diskus (Fluticasone/Salmeterol) 1 Each Disk.w.dev 1 Puff IH BID 04/16/21 Reported Comments CXR 05/30/21 IMPRESSION: 1. Unchanged lines and tubes. 2. Unchanged small to moderate layering pleural effusions and pulmonary opacities suspicious for pulmonary edema. Pneumonia is also possible Impression . IMPRESSION: 1. Acute hypoxic respiratory failure, multifactorial/COVID-19 viral pneumonia/ARDS, ongoing, intubated 04/25/2021, now status post tracheostomy 05/15/[address] chest with bilateral diffuse interstitial infiltrates without any significant pleural effusion 3. Leukocytosis, sepsis--improved 4. Non-ST segment elevation AL 5. History of tobacco use, suspect COPD, unknown FEV1 6. Chronic kidney disease.== HD as needed per renal 7. Metabolic acidosis multifactorial 8. Abnormal chest x-ray 9. Hypoglycemia, continue to monitor--- resolved 10. Hypotension, suspect volume deficit,/possible sepsis--- resolved 11. Fever--improved 12. Anemia--improved 13. Atrial fibrillation with rapid ventricular response, currently rate controlled 14. Ileus Plan . Updated 05/30/21 Change back to AC mode pt is in distress Continues to remain on Precedex. Monitor HGB, anemia today on labs planned for transfusion, hold SQ heparin Follow ABG/CXR--CXR, pul. edema Follow GI recs-- ileus, PEG tube on hold, illeus improved today Follow nephrology recs-- will need HD today D/W Dr. Ariza Follow infectious disease recommendations for ABX Continue TPN for nutritional support DVT/GI PPX: sq heparin-- on hold D/W RN and RT Pt. is DNR Follow chest x-ray in a.m. CC time 30 minutes Updated 05/29/21 Continue current vent support, currently on PS 10/5 40%, failed trach shield tri al today due to increase respiratory rate and blood pressure. I suspect ileus is also contributing to delayed weaning. Patient is a very difficult patient for weaning secondary to increased agitation and hypertension with reduction of sedation. Continues to remain on Precedex. S/P trach 05/15/2021 Follow ABG/CXR--changes as needed Follow GI recs-- ileus, PEG tube on hold Follow nephrology recs-- Follow infectious disease recommendations Continue TPN for nutritional support DVT/GI PPX: sq heparin D/W RN and RT Pt. is DNR Follow chest x-ray in a.m. CC time 30 minutes Updated 05/28/21 Continue current vent support, currently on PS 10/5 40%, tolerating well, weaning during the day as tolerated Patient is a very difficult patient for weaning secondary to increased agitation and hypertension with reduction of sedation S/P trach 05/15/2021 Follow ABG/CXR--changes as needed Follow GI recs-- ileus, PEG tube on hold Follow nephrology recs-- Follow infectious disease recommendations Continue TPN for nutritional support DVT/GI PPX: sq heparin D/W RN and RT Pt. is DNR CC time 30 minutes JONES FISHMAN MD May 30, 2021 11:09
[2021-05-30] MEDS ORDERED: IV NORMAL SALINE 1000ML BAG 1,000 ML IV PRN (11:30)
[2021-05-30] MEDS ORDERED: 0.9 % SODIUM CHLORIDE 10 ML DISP.SYRIN. IV PRN ×2 (11:30)
[2021-05-30] MEDS ORDERED: ALBUMIN HUMAN 25% 200 ML IV PRN (11:30)
[2021-05-30] MEDS ORDERED: DIALYSIS PATIENT. MC PRN ×2 (11:30)
--- NOTE | 2021-05-30 11:53 | PDOC ---
[employer] PROGRESS NOTE Date of Service DOS: DATE: 05/30/21 TIME: 11:51 Chief Complaint Chief Complaint Respiratory failure requiring intubation COVID-19 Acute HI A. fib SIRS Hypertension with hypertensive urgency Hyperlipidemia CKD Diabetes History of bilateral subclavian stenosis History of marijuana use Severe protein calorie malnutrition Trach placed on May 15 GI consulted for PEG evaluation --> patient with a lot of vomiting yesterday thus current NG tube to low intermittent suction Anemia secondary to acute blood loss, possible multiple lab draws and related to advanced CKD History of Present Illness History of Present Illness 05/30/2021 No acute events overnight. Patient doing well on trach collar. Hemoglobin decreased down to 6.7 pending 1 unit PRBC transfusion. Restarted on linezolid and Flagyl and cefepime. Pending PICC placement and central line IJ removal. Patient's chart, labs, images were reviewed and discussed with RN 05/29/2021 No acute events or night. Patient tolerating trach collar humidified. S aturating at 99%. Pending PICC line placement and IJ central line removal. Per ID. Possibly in not needing HD. Making urine adequately with Lasix as needed. Patient's chart, labs, images were reviewed and discussed with RN A total of 34 minutes of critical care time was spent in reviewing chart, labs, and images. Discussed with RN and SW. 05/28/2021 No acute events overnight. Patient doing well on trach with settings of 40% FiO2 and PEEP of 8. Pending PEG placement after ileus is resolved will defer this to GI for timing of PEG placement.. Also pending tunneled catheter placement for dialysis. Patient's chart, labs, images were reviewed and discussed with RN A total of 31 minutes of critical care time was spent in reviewing chart, labs, and images. Discussed with RN and SW. 05/27/2021: Afebrile. On vent with FiO2 40%, PEEP 5. Hemoglobin remains stable at 7.2 today; continue to trend. WBC 13.4. Kidney function appears to be stabilized. LTAC transfer is pending PEG tube placement. Off meropenem; will continue to monitor. Kidney function appears to be stable. Critical care time 30 minutes spent reviewing charts, reviewing labs, reviewing imaging, discussion with RN. 05/26/2021: Afebrile. On vent with FiO2 40%, PEEP 5. Hemoglobin 7.3 yesterday, and hemoglobin 7.2 today; continue to trend. Leukocytosis slightly improved, WBC 12.9 today. Has been accepted at [facility]; transfer pending, but will need PEG tube placement prior. Critical care time 30 minutes spent reviewing charts, reviewing labs, reviewing imaging, discussion with RN. 05/25/2021: Afebrile. On vent with FiO2 40%, PEEP 5. Hemoglobin 8.6 yesterday, hemoglobin 7.3 today. Reportedly had HD yesterday. Continue IV antibiotics, per ID; WBC possibly reactive to ileus. Has been accepted at [facility]; transfer pending, but will need PEG tube placement prior. Critical care time 30 minutes spent reviewing charts, reviewing labs, reviewing imaging, discussion with RN. 05/24/2021: No acute events overnight. Afebrile. NG tube output has decreased. Kidney function appears stable. Continue IV antibiotics, per ID. Patient has been accepted [facility], pending insurance authorization. Critical care time 30 minutes spent reviewing charts, reviewing labs, reviewing imaging, discussion with RN. 05/23/2021: Afebrile. On vent with FiO2 40%, PEEP 5. NG tube for 635 mL out overnight. Continue NG tube to suction. HD per nephrology. Continue IV antibiotics, per ID. Critical care time 30 minutes spent reviewing charts, reviewing labs, reviewing imaging, discussion with RN. 05/22/2021: Afebrile. On vent with FiO2 40%, PEEP 5. Continues to have excessive NG output. Continue NG tube to suction for now; PEG on hold for now. Continue hemodialysis, per nephrology. Continue IV antibiotics, per ID. Social work helping with discharge planning to LTACH likely in the near future after PEG is placed. Critical care time 30 minutes spent reviewing charts, reviewing labs, reviewing imaging, discussion with RN. 05/21/2021: Afebrile, no acute events overnight. Remains on vent, FiO2 40%, PEEP 5. S/P tracheostomy on 05/15/2021. KUB on 05/19/2021 consistent with ileus. Per GI, continue NG tube to suction and parenteral nutrition for now. Continue IV antibiotics, per ID. Continue hemodialysis, per nephrology. Continue supportive care. Critical care time 30 minutes spent reviewing charts, reviewing imaging, reviewing labs, and discussed with RN. 05/20/21 Patient seen and examined at bedside. Again had multiple bouts of vomiting yesterday. GI continuing to follow for PEG evaluation although on hold right now due to persistent vomiting. Leukocytosis does persist but patient afebrile. Plan of care discussed with bedside RN 05/19/21 Patient seen and examined at bedside. Apparently had a fair bit of vomiting overnight. GI following for PEG evaluation. Otherwise patient remained stable. Plan of care discussed with bedside nurse. 05/18/21 Patient seen and examined at bedside. Attempting to increase tube feeds, GI consulted for PEG evaluation. Otherwise no major clinical changes. Continue to wean sedation. Plan of care discussed with bedside nurse. 05/17/21 Patient seen and examined at bedside. Attempting to wean sedation. Patient with some diarrhea. Per infectious disease will give erythromycin eye ointment for eye lesions. Nephro and pulm also following. Continue sedation weaning, plan of care discussed with bedside nurse. 05/16/21 Patient seen and examined at bedside. Underwent tracheostomy yesterday today tolerated well. When seen this morning patient is still notably sedated respiratory status is stable. Continue antibiotics and supportive measures. Plan of care discussed with bedside nurse. Attempt to wean sedation. 05/15/21 Patient seen and examined at bedside Remains intubated and sedated planning for tracheostomy today Continue current respiratory support; continue antibiotics, continue sedation Follow recommendations of pulmonary, renal, and infectious disease Plan of care discussed with bedside nurse Will follow up with patient after surgery today 05/14/21 Patient seen and examined at bedside Remains intubated and sedated planning for tracheostomy tomorrow Continue current respiratory support; continue antibiotics, continue sedation Follow recommendations of pulmonary, renal, and infectious disease Plan of care discussed with bedside nurse 05/13/2021 did not tolerate sedation vacation 05/11/2021, profoundly hypertensive ABG/CXR--changes as needed Continue iv cefepime , add zyvox, sputum culture VENT [id number]%, 5 of PEEP Mild pulmonary edema with new small right pleural effusion and basilar opacities now on cardene gtt prn Patient seen and examined in the COVID-19 ICU remains mechanically ventilated ILDA on CKD - ATN 2/2 sepsis/ Hypotension,UOP good,on IV Lasix ; requiring dialysis, Sedated with propofol Dex and fentanyl Chart reviewed Discussed with RN He remains critically ill intubated/sedated cont cardene gtt not able to tolerate PS trial 05/06/21 Change central line and send cath tip for cultures. 05-09 C. difficile PCR ADELSO AVILA MD ORDERED: BCULT Procedure Result - BLOOD CULTURE Final NO GROWTH AFTER 5 DAYS JONES FISHMAN MD, CHRISTOPHER S MD BLOOD CULTURE Preliminary NO GROWTH AFTER 4 DAYS 37 min cc time 05/12/2021 Continue iv cefepime , add zyvox, sputum culture VENT [id number]%, 5 of PEEP Mild pulmonary edema with new small right pleural effusion and basilar opacities now on cardene gtt prn Patient seen and examined in the COVID-19 ICU remains mechanically ventilated ILDA on CKD - ATN 2/2 sepsis/ Hypotension,UOP good,on IV Lasix ; requiring dialysis, Sedated with propofol Dex and fentanyl Chart reviewed Discussed with RN He remains critically ill intubated/sedated cont cardene gtt not able to tolerate PS trial 05/06/21 Change central line and send cath tip for cultures. 05-09 C. difficile PCR FISHMANJONES DA SILVA MD, CHRISTOPHER S MD SISILLO, SABATO MD ORDERED: BCULT Procedure Result BLOOD CULTURE Preliminary NO GROWTH AFTER 2 DAYS BLOOD CULTURE Preliminary NO GROWTH AFTER 4 DAYS 33 min cc time 05/11/2021 Continue iv cefepime , add zyvox, sputum culture VENT [id number]%, 5 of PEEP Mild pulmonary edema with new small right pleural effusion and basilar opacities now on cardene gtt prn Patient seen and examined in the COVID-19 ICU remains mechanically ventilated ILDA on CKD - ATN 2/2 sepsis/ Hypotension,UOP good,on IV Lasix ; requiring dialysis, Sedated with propofol Dex and fentanyl Chart reviewed Discussed with RN He remains critically ill intubated/sedated cont cardene gtt not able to tolerate PS trial 05/06/21 Change central line and send cath tip for cultures. 05-09 C. difficile PCR JONES FISHMAN MD, CHRISTOPHER S MD SISILLO, SABATO MD ORDERED: BCULT Procedure Result BLOOD CULTURE Preliminary NO GROWTH AFTER 2 DAYS BLOOD CULTURE Preliminary NO GROWTH AFTER 4 DAYS 36 min cc time 05/10/2021 VENT [id number]%, 5 of PEEP Mild pulmonary edema with new small right pleural effusion and basilar opacities now on cardene gtt prn Patient seen and examined in the [place] [address] ICU remains mechanically ventilated ILDA on CKD - ATN 2/2 sepsis/ Hypotension,UOP good,on IV Lasix ; requiring dialysis, Sedated with propofol Dex and fentanyl Chart reviewed Discussed with RN He remains critically ill intubated/sedated cont cardene gtt not able to tolerate PS trial 05/06/21 Change central line and send cath tip for cultures. 05-09 C. difficile PCR JONES FISHMAN MD,ADELSO DASILVA MD, MD ORDERED: BCULT -- Procedure Result BLOOD CULTURE Preliminary NO GROWTH AFTER 2 DAYS - BLOOD CULTURE Preliminary NO GROWTH AFTER 4 DAYS 33 min cc time 05/09/2021 VENT [id number]%, 5 of PEEP Mild pulmonary edema with new small right pleural effusion and basilar opacities now on cardene gtt prn Patient seen and examined in the [place] [address] ICU remains mechanically ventilated ILDA on CKD - ATN 2/2 sepsis/ Hypotension,UOP good,on IV Lasix ; requiring dialysis, Sedated with propofol Dex and fentanyl Chart reviewed Discussed with RN He remains critically ill intubated/sedated cont cardene gtt not able to tolerate PS trial 05/06/21 Change central line and send cath tip for cultures. 05-09 C. difficile PCR JONES FISHMAN MD,ADELSO DASILVA MD, MD ORDERED: BCULT Procedure Result BLOOD CULTURE Preliminary NO GROWTH AFTER 2 DAYS BLOOD CULTURE Preliminary NO GROWTH AFTER 4 DAYS 37 min cc time 05/08/2021 Currently on 40%, 5 of PEEP now on cardene gtt Patient seen and examined in the [place] [address] ICU remains mechanically ventilated ILDA on CKD - ATN 2/2 sepsis/ Hypotension,UOP good,on IV Lasix ; requiring dialysis, AC/20/500/40 percent with 5 of PEEP Sedated with propofol Dex and fentanyl Chart reviewed Discussed with RN He remains critically ill intubated/sedated cont cardene gtt not able to tolerate PS trial 05/06/21 JONES FISHMAN MD,ADELSO DASILVA MD, MD ORDERED: BCULT Procedure Result BLOOD CULTURE Preliminary NO GROWTH AFTER 2 DAYS BLOOD CULTURE Preliminary NO GROWTH AFTER 4 DAYS 33 min cc time 05/07/2021 Patient seen and examined in the [place] [address] ICU He remains mechanically ventilated ILDA on CKD - ATN 2/2 sepsis/ Hypotension,UOP good,on IV Lasix ; requiring dialysis, AC/20/500/40 percent with 5 of PEEP Sedated with propofol Dex and fentanyl Chart reviewed Discussed with RN He remains critically ill intubated/sedated cont cardene gtt not able to tolerate PS trial 05/06/21 JONES FISHMAN MD,ADELSO DASILVA MD, MD ORDERED: BCULT Procedure Result BLOOD CULTURE Preliminary NO GROWTH AFTER 2 DAYS 36 min cc time 05/06/2021 Patient seen and examined in the [place] [address] ICU He remains mechanically ventilated AC/20/500/40 percent with 5 of PEEP Sedated with propofol Dex and fentanyl Chart reviewed Discussed with RN He remains critically ill 05/05/2020 Patient seen and examined in the [place] [address] ICU He remains on the vent AC/20/500/40 percent with 5 of PEEP Discussed with RN Chart reviewed Has SCDs in place Nieves to bedside drainage He remains critically ill 05/04/2021 Patient seen and examined in the [place] [address] ICU Still intubated Sedated with propofol and fentanyl AC/20/500/70 percent with 5 of PEEP On dialysis currently Has SCDs in Nieves to bedside drainage Discussed with RN Chart reviewed 05/03/2021 Patient seen and examined in the [place] [address] ICU He is still intubated AC/20/500/70 percent with 5 of PEEP Has SCDs in place Nieves to bedside drainage Sedated with fentanyl Versed and propofol Discussed are Chart reviewed Remains critically ill 05/02/2021 Patient seen and examined in the [place] [address] ICU He is sedated with propofol fentanyl and Versed Ventilator settings as follow AC/20/500/40 percent with 5 of PEEP Has Nieves to bedside drainage Chart reviewed Discussed with RN He remains critically ill 05/01/2021 Patient seen and examined in the [place] [address] ICU He is still intubated AC/20/500/40 percent with 5 of PEEP In A. fib Sedated with propofol fentanyl and Versed Has a heparin drip Missy with RN Chart reviewed He remains critically 04/30/2020 Patient seen and examined in the [place] [address] ICU He remains on the vent AC/20/500/40 5% with 5 PEEP Currently on dialysis Has OG feeds running Has a Nieves to bedside drainage Sedated with propofol and fentanyl Reviewed chart Discussed with RN He remains critically ill Mr Cunha is a 75 yo male w/ PMHx CAD, HTN, Hyperlipidemia, subclavian steel syndrome, subclavian stenosis s/p left subclavian sent placement complicated by retroperitoneal hematoma s/p evacuation in 08/2015), asthma, BART, CKD, DM2 who presented from home with home health care noted that he was short of breath and valverde with O2 saturations less than 89% as low as 84% not improved with nasal cannulated oxygen placed on CPAP and brought to ED for further care. He was just discharged from the hospital a week ago on April 19, 2021 for abdominal pain and was going for further cardiac testing with outpatient stress testing scheduled on May 28, 2021. Had echocardiogram April 17, 2021 with normal-appearing EF with moderate concentric LVH no significant valvular abnormalities. WBC 20, Hb 10.7, platelets 268, NA 140, K3.8, BUN 21, CR 2.9, glucose 162, albumin 3, troponin I 1.372, NT proBNP 33,318. EKG appears sinus tachycardia rate of 105 bpm with multiple PACs small ST depressions in lead II and V5. TWI in V6. Chest radiograph with diffuse interstitial and alveolar opacities and ET tube 5.8 cm above the leilani. Due to worsening respiratory status ED physician elected to intubate patient. Seen postintubation. Blood pressure little low after propofol bolus, but improved. Significant white frothy sputum per ET tube. Admitted to ICU for further care 04/29/2021: Afebrile, remains on vent at FiO2 45%, PEEP 5. WBC 20.4. Hemodialysis per nephrology. We will continue treatment with empiric anti biotics, remdesivir, and steroids. Continue heparin infusion and supportive care. Critical care time 30 minutes reviewing chart, review labs, review imaging, discussion with RN. 04/28/2021: Afebrile. FiO2 50%, PEEP 5. Nontunneled HD catheter placed yest erday due to worsening kidney function; eGFR 16 (CKD4). Chest x-ray showed unchanged interstitial opacities. Continue empiric antibiotics, steroids, and remdesivir. Continue heparin infusion, and continue to follow cardiology recommendations on new diagnosis of A. fib. Critical care time 30 minutes reviewing chart, review labs, review imaging, discussion with RN. 04/27/2021: Afebrile. On vent with FiO2 50%, PEEP 5. Troponin 2.8 yesterday; probable type II, demand ischemia. New onset A. fib. Continue heparin drip and as needed digoxin, per cardiology. Continue treatment with remdesivir, steroids, and prophylactic antibiotics. CBG 323 this morning; will add basal insulin. Critical care 30 minutes spent reviewing labs, reviewing imaging, reviewing charts, and discussion with RN. 04/26/2021: COVID-19 positive. Febrile overnight that was managed with cooling blankets. On vent with FiO2 50%, PEEP 5. Per cardiology, elevated troponins likely secondary to demand ischemia; continue heparin drip per cardiology. Maintain fluid balance and avoid nephrotoxins. Continue treatment with remdesivir, steroids, and prophylactic antibiotics. 30 minutes critical care time spent reviewing charts, reviewing labs, reviewing imaging, and discussion with RN. 04/25/2021: On vent FiO2 50, PEEP 5. Febrile, T-max 103.3. Patient was initiated on cooling blankets. Procalcitonin 0.13. Continue coverage for hospital-acquired pneumonia with cefepime. MRSA PCR pending. Critical care time 30 minutes spent reviewing charts, reviewing labs, review of imaging, discussion with RN. Vitals/I&O Vitals/I&O: Vital Signs Date Time Temp Pulse Resp B/P (MAP) Pulse Ox O2 Delivery O2 Flow Rate FiO2 05/30/21 11:49 100 Ventilator 05/30/21 10:06 103 28 171/91 (117) 05/30/21 08:00 98.9 98.9 05/29/21 07:26 10.0 I & O 05/29/21 05/29/21 05/30/21 15:00 23:00 07:00 Intake Total 2165 ml Output Total 760 ml 385 ml 1175 ml Balance -760 ml -385 ml 990 ml Physical Exam Physical Exam: GENERAL: Well-developed and well-nourished male, sedated HEENT: Normocephalic, atraumatic, redness and erythema of both eyes improved, NG tube present NECK: right dialysis catheter present clean,central line changed ( 05/11) Trach + HEART: S1, S2. LUNGS: Decreased breath sounds. ABDOMEN: Less distended, bowel sounds present GENITOURINARY: Nieves in place. EXTREMITIES: Edema present. DERMATOLOGIC: Warm, dry, no generalized rash. NEUROLOGIC: Opens eyes PICC line clean General: No acute distress, Other (Alert and awake) Heart: Regular rate, Normal S1, Normal S2 Lungs: Crackles Abdomen: Normal bowel sounds, Other (ND) Extremities: No clubbing, No cyanosis, Other (Lower extremity edema) Skin: No rashes, No breakdown, No significant lesion Labs Labs: Laboratory Tests Test 05/29/21 18:08 05/29/21 23:43 05/30/21 05:00 05/30/21 05:21 Glucose (Fingerstick) 319 mg/dL (70-99) 338 mg/dL (70-99) 293 mg/dL (70-99) Sodium Level 144 mmol/L (136-145) Potassium Level 3.8 mmol/L (3.5-5.1) Chloride Level 109 mmol/L (98-107) Carbon Dioxide Level 27 mmol/L (21-32) Anion Gap 8 (6-14) Blood Urea Nitrogen 36 mg/dL (8-26) Creatinine 2.4 mg/dL (0.7-1.3) Estimated GFR (Cockcroft-Gault) 32.2 Glucose Level 321 mg/dL (70-99) Calcium Level 8.9 mg/dL (8.5-10.1) Phosphorus Level 2.8 mg/dL (2.6-4.7) Magnesium Level 1.9 mg/dL (1.8-2.4) Test 05/30/21 07:30 White Blood Count 20.4 x10^3/uL (4.0-11.0) Red Blood Count 2.58 x10^6/uL (4.30-5.70) Hemoglobin 6.9 g/dL (13.0-17.5) Hematocrit 22.0 % (39.0-53.0) Mean Corpuscular Volume 85 fL (79-100) Mean Corpuscular Hemoglobin 27 pg (25-35) Mean Corpuscular Hemoglobin Concent 31 g/dL (31-37) Red Cell Distribution Width 19.0 % (11.5-14.5) Platelet Count 424 x10^3/uL (140-400) Neutrophils (%) (Auto) 66 % (31-73) Lymphocytes (%) (Auto) 19 % (24-48) Monocytes (%) (Auto) 12 % (0-9) Eosinophils (%) (Auto) 2 % (0-3) Basophils (%) (Auto) 1 % (0-3) Neutrophils # (Auto) 13.5 x10^3/uL (1.8-7.7) Lymphocytes # (Auto) 3.9 x10^3/uL (1.0-4.8) Monocytes # (Auto) 2.5 x10^3/uL (0.0-1.1) Eosinophils # (Auto) 0.3 x10^3/uL (0.0-0.7) Basophils # (Auto) 0.2 x10^3/uL (0.0-0.2) Assessment and Plan Assessmemt and Plan Problems Medical Problems: (1) Elevated troponin Status: Acute (2) Person under investigation for COVID-19 Status: Acute (3) Pulmonary edema Status: Acute Comment Review of Relevant I have reviewed the following items juanita (where applicable) has been applied. Medications: Current Medications Medications (Trade) Dose Ordered Sig/Jodie Route PRN Reason Start Time Stop Time Status Last Admin Dose Admin Sodium Chloride 90 meq/Potassium Chloride 50 meq/ Potassium Phosphate 5 mmol/ Magnesium Sulfate 10 meq/Calcium Gluconate 5 meq/ Multivitamins 5 ml/Zinc/Copper/ Manganese/ Selenium 1 ml/ Total Parenteral Nutrition/Amino Acids/Dextrose/ Fat Emulsion Intravenous 1,200 ml @ 50 mls/hr TPN CONT IV 05/29/21 22:00 05/30/21 21:59 05/29/21 21:17 Acetaminophen (Tylenol Supp) 650 mg PRN Q6HRS PRN [place] MILD PAIN / TEMP > 100.3'F 05/29/21 16:15 05/29/21 16:37 Insulin Glargine (Lantus Syringe) 15 unit BID SQ 05/30/21 09:00 05/30/21 09:40 Cefepime HCl (Maxipime) 1 gm Q12HR IVP 05/30/21 09:00 05/30/21 09:50 Metronidazole 100 ml @ 100 mls/hr Q12HR IV 05/30/21 09:00 05/30/21 09:48 Linezolid/Dextrose 300 ml @ 300 mls/hr Q12HR IV 05/30/21 09:00 05/30/21 08:19 Justifications for Admission General Conditions Altered mental status?: Yes Justification of admission: Patient has tachycardia (> 100 beats per minute) or hypotension (SBP < 90 mm Hg) leading to inadequate systemic perfusion as indicated by severe/persistent altered mental status. Other Justification HUY WEBB MD May 30, 2021 11:53
--- NOTE | 2021-05-30 12:10 | NUR ---
Wound Care Wound Type/Assessment: Patient was seen for wound care follow up. Patient continues with a large, intact blood blister on plantar side of right foot. Tissue is stable with no openings. Periwound intact and clear. Pt's L eye abrasion appears to be resolved. Pt has peeling, yeasty skin breakdown in bilateral axilla and gluteal fold. Areas cleaned, Nystatin powder applied to axilla, recommend Calazime cream mixed with Nystatin powder to form a paste, and apply to the gluteal/perineal areas BID and PRN. Treatment Recommendations/Plan: Continue to skin prep R foot periwound, foam dressing was applied for protection. Recommend change every 3-4 days. Education provided: HERMILO Simons at bedside. Offloading surface/device: wedge, ICU bed, float feet with pillows and wedge, recommend end bedrail removed or elevate on purple wedge, as it's difficult for pt's feet to avoid touching d/t height. Pt repositioned onto left side at this time. Recommended Referrals/Tests: None Discharge Recommendations for dressings: Continue current treatment plan.
[2021-05-30] MEDS: TPN PER PHARMACY MC PRN (12:20)
--- NOTE | 2021-05-30 12:20 | NUR ---
Pharmacy TPN Dosing Note S: NILAM LAN is a 75 year old M Currently receiving Central Continuous TPN started 05/22/21 B:Pertinent PMH: ILEUS Height: 6 feet, 2 inches Weight: 145.0 kg Current diet: NPO LABS: Sodium: 144 Potassium: 3.8 Chloride: 109 Calcium: 8.9 Corrected Calcium: 10.82 Magnesium: 1.9 CO2: 27 SCr: 2.1 Glucose: 321 Albumin: 1.6 AST: 27 ALT: 19 TPN FORMULA: TPN TYPE: Central Continuous AMINO ACIDS: 90 gm DEXTROSE: 290 gm LIPIDS: 30 gm SODIUM CHLORIDE: 90 mEq SODIUM ACETATE: - mEq SODIUM PHOSPHATE: - mmol POTASSIUM CHLORIDE: 50 mEq POTASSIUM ACETATE: - mEq POTASSIUM PHOSPHATE: 5 mmol MAGNESIUM: 10 mEq CALCIUM: 5 mEq INSULIN: - units MULTIPLE VITAMIN: 5 ml TRACE ELEMENTS: 1 ml(s) TPN PLAN: Electrolytes WNLs, continue same TPN R: Continue TPN as written above. Will monitor electrolytes, glucose, and tolerance to TPN. CAMRYN HERNANDEZ [facility], 05/30/21 1227
--- NOTE | 2021-05-30 15:54 | NUR ---
SS following up with discharge planning. SS reviewed pt chart and discussed with pt RN. Pt is currently on the vent at 40%. COVID19 recovered. NG in place. TPN. Currently awaiting ileus to resolve. Pt on Fentanyl and Precedex. Hemodialysis and unit of blood today. Pt on IV Cefepime and IV Zyvox. Pt accepted at [facility], ; fax [phone], pending insurance approval. Per [facility], ilieus needs to be improved and pt needs to be on less FI02 prior to authorizing. SS will continue to follow for discharge planning.
--- NOTE | 2021-05-30 17:37 | NUR ---
Blood given by the dialysis nurse, see dialysis sheet for vitals
[2021-05-30] MEDS: ATORVASTATIN CALCIUM 40 MG TABLET. PO SCH (20:59)
[2021-05-30] MEDS: MONTELUKAST SODIUM 10 MG TABLET. PO SCH (21:00)
[2021-05-30] MEDS ORDERED: TOTAL PARENTERAL NUTRITION IV SCH (22:00)
[2021-05-30] MEDS ORDERED: AMINO ACID IV SCH (22:00)
[2021-05-30] MEDS ORDERED: [UNRECOGNIZED DRUG - OTHER] IV SCH (22:00)
[2021-05-30] MEDS ORDERED: DEXTROSE 70% IV SCH (22:00)
[2021-05-31] VITALS (18 sets, daily range): BP systolic 99–228; BP diastolic 48–121
[2021-05-31] MEDS: DEXMEDETOMIDINE 400 MCG in IV NORMAL SALINE 100ML 96 ML IV PRN ×7 (00:11→21:21)
[2021-05-31] MEDS: METOPROLOL IV PUSH 5 MG/5 ML VIAL. IVP SCH ×3 (05:55→18:08)
[2021-05-31] MEDS: INSULIN LISPRO 300 UNITS/3 ML VIAL. SQ SCH ×3 (05:56→18:10)
[2021-05-31 06:38] LABS: CALCIUM 8.9 mg/dL (8.5-10.1); GFR 39.7; MAGNESIUM 1.8 mg/dL (1.8-2.4); PHOSPHORUS 2.2 mg/dL (2.6-4.7)
[2021-05-31] MEDS: PANTOPRAZOLE IV PUSH 40 MG VIAL. IVP SCH (07:30)
[2021-05-31] MEDS: FUROSEMIDE 40 MG/4 ML VIAL. IVP SCH ×3 (07:45→20:10)
[2021-05-31] MEDS ORDERED: DIALYSIS PATIENT. MC PRN (07:45)
[2021-05-31] MEDS ORDERED: ALBUMIN HUMAN 25% 200 ML IV PRN (07:45)
[2021-05-31] MEDS: BISACODYL 10 MG SUPP.RECT. PR PRN (07:45)
[2021-05-31] MEDS ORDERED: IV NORMAL SALINE 1000ML BAG 1,000 ML IV PRN ×2 (07:45)
--- NOTE | 2021-05-31 07:48 | PDOC ---
Infectious Disease Note Subjective: Subjective Pt remains vent dependent remains afebrile last 24 hrs Discussed with nursing staff Vital Signs: Vital Signs Vital Signs Date Time Temp Pulse Resp B/P (MAP) Pulse Ox O2 Delivery O2 Flow Rate FiO2 05/31/21 06:00 108 26 163/89 (113) 99 Ventilator 05/31/21 05:54 10.0 05/31/21 04:00 98.5 98.5 Physical Exam: PHYSICAL EXAM GENERAL: Well-developed and well-nourished male, sedated HEENT: Normocephalic, atraumatic, redness and erythema of both eyes improved, NG tube present NECK: right dialysis catheter present clean,central line changed ( 05/11) Trach + HEART: S1, S2. LUNGS: Decreased breath sounds. ABDOMEN: Less distended, bowel sounds present GENITOURINARY: Mooney in place. EXTREMITIES: Edema present. DERMATOLOGIC: Warm, dry, no generalized rash. NEUROLOGIC: Opens eyes PICC line clean Medications: Inpatient Meds: Medications reviewed. Labs: Lab Laboratory Tests Test 05/30/21 12:26 05/30/21 16:54 05/30/21 20:56 05/30/21 23:26 Glucose (Fingerstick) 316 mg/dL (70-99) 343 mg/dL (70-99) 171 mg/dL (70-99) 236 mg/dL (70-99) Test 05/31/21 05:51 05/31/21 06:00 Glucose (Fingerstick) 236 mg/dL (70-99) Sodium Level 141 mmol/L (136-145) Potassium Level 4.0 mmol/L (3.5-5.1) Chloride Level 106 mmol/L (98-107) Carbon Dioxide Level 27 mmol/L (21-32) Anion Gap 8 (6-14) Blood Urea Nitrogen 28 mg/dL (8-26) Creatinine 2.0 mg/dL (0.7-1.3) Estimated GFR (Cockcroft-Gault) 39.7 Glucose Level 253 mg/dL (70-99) Calcium Level 8.9 mg/dL (8.5-10.1) Phosphorus Level 2.2 mg/dL (2.6-4.7) Magnesium Level 1.8 mg/dL (1.8-2.4) Objective: Assessment: 1. Febrile illnessresolved 2. Leukocytosis, was on steroids,ileus could contribute,improving 3. COVID-19 pneumonia. 4. Acute hypoxic respiratory failure status post intubation.Now S/P Trach 05/15 5. Congestive heart failure, acute on chronic. 6. Acute kidney injury on chronic kidney disease on hemodialysis. 7. Diabetes mellitus 2. 8. Atrial fibrillation. 9. Anemia. 10. Protein-calorie malnutrition. 11. Hypertention 12.Hyponatremia 13. Ileus, Bowel obstruction Peg TF on hold, OG to LIS 14.on PPN 15.Mild to Moderate Pleural effusion 16.Lt eye conjunctivitis resolved Plan: Plan of Care Cefepime and flagyl add zyvox f/u gpc in sputum Monitor labs and cultures HDC/ Central line changed on 05/11, Continue supportive care. cont local eye care mooney changed 05/30 Per team unable to get PICC line Awaiting perm cath for HDC and central line C. difficile PCR negative Remains critically ill Prognosis guarded Discussed with nursing staff ALAYNA RIVERO MD May 31, 2021 07:48
[2021-05-31] MEDS: ASPIRIN CHEWABLE 81 MG TABLET. PO SCH (08:00)
[2021-05-31] MEDS: NYSTATIN TOPICAL POWDER 15GM BOTTLE. TP SCH ×2 (08:01→20:09)
[2021-05-31 08:15] LABS: BASO # 0.2 x10^3/uL (0.0-0.2); BASO % 1 % (0-3); EOS # 0.9 x10^3/uL (0.0-0.7); EOS % 4 % (0-3); HEMOGLOBIN 8.4 g/dL (13.0-17.5); LYMPH # 4.3 x10^3/uL (1.0-4.8); LYMPH % 18 % (24-48); MEAN CORPUSCULAR HEMOGLOBIN 27 pg (25-35); MEAN CORPUSCULAR HGB CONC 32 g/dL (31-37); MEAN CORPUSCULAR VOLUME 85 fL (79-100); MONO # 2.6 x10^3/uL (0.0-1.1); MONO % 11 % (0-9); NEUT # 15.5 x10^3/uL (1.8-7.7); NEUT % 66 % (31-73); PLATELET COUNT 405 x10^3/uL (140-400); RED BLOOD COUNT 3.07 x10^6/uL (4.30-5.70); RED CELL DISTRIBUTION WIDTH 18.2 % (11.5-14.5); WHITE BLOOD COUNT 23.4 x10^3/uL (4.0-11.0)
[2021-05-31] MEDS: INSULIN GLARGINE SYRINGE. SQ SCH ×2 (08:52→21:22)
--- NOTE | 2021-05-31 10:45 | PDOC ---
Renal-Progress Notes Subjective Notes Notes NO ACUTE CHANGES History of Present Illness Hx of present illness STABLE Vitals Vitals Vital Signs Date Time Temp Pulse Resp B/P (MAP) Pulse Ox O2 Delivery O2 Flow Rate FiO2 05/31/21 09:30 100 Ventilator 05/31/21 09:09 113 22 228/83 (131) 05/31/21 08:08 98.9 98.9 05/31/21 05:54 10.0 Weight Weight [ ] I.O. Intake and Output Intake and Output 05/31/21 07:00 Intake Total 2367 ml Output Total 1750 ml Balance 617 ml IV Total 2367 ml Output Urine Total 1750 ml Labs Labs Laboratory Tests Test 05/30/21 12:26 05/30/21 16:54 05/30/21 20:56 05/30/21 23:26 Glucose (Fingerstick) 316 mg/dL (70-99) 343 mg/dL (70-99) 171 mg/dL (70-99) 236 mg/dL (70-99) Test 05/31/21 05:51 05/31/21 06:00 Glucose (Fingerstick) 236 mg/dL (70-99) White Blood Count 23.4 x10^3/uL (4.0-11.0) Red Blood Count 3.07 x10^6/uL (4.30-5.70) Hemoglobin 8.4 g/dL (13.0-17.5) Hematocrit 26.0 % (39.0-53.0) Mean Corpuscular Volume 85 fL (79-100) Mean Corpuscular Hemoglobin 27 pg (25-35) Mean Corpuscular Hemoglobin Concent 32 g/dL (31-37) Red Cell Distribution Width 18.2 % (11.5-14.5) Platelet Count 405 x10^3/uL (140-400) Neutrophils (%) (Auto) 66 % (31-73) Lymphocytes (%) (Auto) 18 % (24-48) Monocytes (%) (Auto) 11 % (0-9) Eosinophils (%) (Auto) 4 % (0-3) Basophils (%) (Auto) 1 % (0-3) Neutrophils # (Auto) 15.5 x10^3/uL (1.8-7.7) Lymphocytes # (Auto) 4.3 x10^3/uL (1.0-4.8) Monocytes # (Auto) 2.6 x10^3/uL (0.0-1.1) Eosinophils # (Auto) 0.9 x10^3/uL (0.0-0.7) Basophils # (Auto) 0.2 x10^3/uL (0.0-0.2) Sodium Level 141 mmol/L (136-145) Potassium Level 4.0 mmol/L (3.5-5.1) Chloride Level 106 mmol/L (98-107) Carbon Dioxide Level 27 mmol/L (21-32) Anion Gap 8 (6-14) Blood Urea Nitrogen 28 mg/dL (8-26) Creatinine 2.0 mg/dL (0.7-1.3) Estimated GFR (Cockcroft-Gault) 39.7 Glucose Level 253 mg/dL (70-99) Calcium Level 8.9 mg/dL (8.5-10.1) Phosphorus Level 2.2 mg/dL (2.6-4.7) Magnesium Level 1.8 mg/dL (1.8-2.4) Micro Micro Microbiology 05/30/21 Gram Stain Evaluation - Final, Resulted 05/30/21 Respiratory Culture - Preliminary, Resulted 05/30/21 Blood Culture - Preliminary, Resulted NO GROWTH AFTER 1 DAY 05/04/21 Gram Stain - Final, Complete 05/04/21 Aerobic Culture - Final, Complete Review of Systems Constitutional: yes: unresponsive, other Physical Exam General Appearance: no apparent distress, other (ON THE VENT) Skin: warm, dry, edema Respiratory: decreased breath sounds Heart: S1S2 Abdomen: soft, N/T, distension, other Genitourinary: bladder flat, mooney catheter Extremities: pulses present, edema Neurology: other (sedated) Musculoskeletal: Other Assessment Assessment IMP HYPONATREMIA-RESOLVED HYPOKALEMIA-CORRECTED LOW PO4-CORRECTED LOW MAG-CORRECTED ILDA-ATN-UO IMPROVED CKD - SUSPECT STAGE 3 ACUTE HYPOXIC RESP FAILURE COVID 19 PNEUMONIA MET ACIDOSIS-BETTER LEUCOCYTOSIS ANEMIA S/P TRACH ANASARCA ILEUS PLAN RESP SUPPORT NUTRITION-TPN HD AGAIN TODAY UF ABOUT 4.0 LITERS IF TOLERATED ANTIBIOTICS PROMISE TRANSFER PENDING WILL FOLLOW JEANINE NEWTON MD May 31, 2021 10:45
[2021-05-31] MEDS: TPN PER PHARMACY MC PRN (10:58)
--- NOTE | 2021-05-31 10:59 | NUR ---
Pharmacy TPN Dosing Note S: NILAM LAN is a 75 year old M Currently receiving Central Continuous TPN started 05/22/21 B:Pertinent PMH:ILEUS Height: 6 feet, 2 inches Weight: 145.5 kg Current diet: NPO LABS: Sodium: 141 Potassium: 4 Chloride: 106 Calcium: 8.9 Corrected Calcium: 10.82 Magnesium: 1.8 CO2: 27 SCr: 2 Glucose: 236, 253 Albumin: 1.6 AST: 27 ALT: 19 TPN FORMULA: TPN TYPE: Central Continuous AMINO ACIDS: 90 gm DEXTROSE: 290 gm LIPIDS: 30 gm SODIUM CHLORIDE: 90 mEq POTASSIUM CHLORIDE: 30 mEq POTASSIUM PHOSPHATE: 13.6 mmol MAGNESIUM: 10 mEq MULTIPLE VITAMIN: 5 ml TRACE ELEMENTS: 1 ml TPN PLAN: -Serum phos low, give KPhos dose outside of TPN. Increase KPhos to 13.6 mmol/day. -Decrease KCL to 30 mEq/day. -Corrected calcium elevated, remove calcium from TPN. -CMP, mag, phos, TG tomorrow. R: Continue TPN @ current rate and above formula. Will monitor electrolytes, glucose, and tolerance to TPN. PHILIPPE OROPEZA [facility], 05/31/21 [id number]
--- NOTE | 2021-05-31 11:09 | PDOC ---
Date of Service: DATE: 05/31/21 TIME: 11:06 Objective: Objective: D/w nurse - 75cc out overnight from NGT. Transfused yesterday. Vital Signs: Vital Signs Date Time Temp Pulse Resp B/P (MAP) Pulse Ox O2 Delivery O2 Flow Rate FiO2 05/31/21 11:01 70 22 99/48 (65) 99 Ventilator 05/31/21 08:08 98.9 98.9 05/31/21 05:54 10.0 Labs: Laboratory Tests Test 05/30/21 12:26 05/30/21 16:54 05/30/21 20:56 05/30/21 23:26 Glucose (Fingerstick) 316 mg/dL 343 mg/dL 171 mg/dL 236 mg/dL Test 05/31/21 05:51 05/31/21 06:00 Glucose (Fingerstick) 236 mg/dL White Blood Count 23.4 x10^3/uL Red Blood Count 3.07 x10^6/uL Hemoglobin 8.4 g/dL Hematocrit 26.0 % Mean Corpuscular Volume 85 fL Mean Corpuscular Hemoglobin 27 pg Mean Corpuscular Hemoglobin Concent 32 g/dL Red Cell Distribution Width 18.2 % Platelet Count 405 x10^3/uL Neutrophils (%) (Auto) 66 % Lymphocytes (%) (Auto) 18 % Monocytes (%) (Auto) 11 % Eosinophils (%) (Auto) 4 % Basophils (%) (Auto) 1 % Neutrophils # (Auto) 15.5 x10^3/uL Lymphocytes # (Auto) 4.3 x10^3/uL Monocytes # (Auto) 2.6 x10^3/uL Eosinophils # (Auto) 0.9 x10^3/uL Basophils # (Auto) 0.2 x10^3/uL Sodium Level 141 mmol/L Potassium Level 4.0 mmol/L Chloride Level 106 mmol/L Carbon Dioxide Level 27 mmol/L Anion Gap 8 Blood Urea Nitrogen 28 mg/dL Creatinine 2.0 mg/dL Estimated GFR (Cockcroft-Gault) 39.7 Glucose Level 253 mg/dL Calcium Level 8.9 mg/dL Phosphorus Level 2.2 mg/dL Magnesium Level 1.8 mg/dL PE: GEN: dialyzing LUNGS: trach/vent HEART: RR ABD: distended, quiet, NG bilious NEURO/PSYCH: awake A/P: COVID-19/resp failure - s/p tracheopstomy CKD - HD today Ileus -- NG output slowing? Continue same for now. Justicifation of Admission Dx: Justifications for Admission: Justification of Admission Dx: Yes Aspiration Pneumonia: Hemodynamic Instability TAIWO THEODORE May 31, 2021 11:09
--- NOTE | 2021-05-31 11:47 | PDOC ---
PULMONARY PROGRESS NOTES DATE: 05/31/21 TIME: 11:44 Subjective Patient is back on assist control mode, 40% Hypertensive on examination Seen while on hemodialysis Vitals Vital Signs Date Time Temp Pulse Resp B/P (MAP) Pulse Ox O2 Delivery O2 Flow Rate FiO2 05/31/21 11:01 70 22 99/48 (65) 99 Ventilator 05/31/21 08:08 98.9 98.9 05/31/21 05:54 10.0 Comments Tracheostomy unable to report HEENT: Other (Trachea midline) Lungs: Crackles Cardiovascular: S1, S2 Abdomen: Soft Extremities: No Edema Skin: Warm Labs Laboratory Tests Test 05/29/21 18:08 05/29/21 23:43 05/30/21 05:00 05/30/21 05:21 Glucose (Fingerstick) 319 mg/dL (70-99) 338 mg/dL (70-99) 293 mg/dL (70-99) Sodium Level 144 mmol/L (136-145) Potassium Level 3.8 mmol/L (3.5-5.1) Chloride Level 109 mmol/L (98-107) Carbon Dioxide Level 27 mmol/L (21-32) Anion Gap 8 (6-14) Blood Urea Nitrogen 36 mg/dL (8-26) Creatinine 2.4 mg/dL (0.7-1.3) Estimated GFR (Cockcroft-Gault) 32.2 Glucose Level 321 mg/dL (70-99) Calcium Level 8.9 mg/dL (8.5-10.1) Phosphorus Level 2.8 mg/dL (2.6-4.7) Magnesium Level 1.9 mg/dL (1.8-2.4) Test 05/30/21 07:30 05/30/21 12:26 05/30/21 16:54 05/30/21 20:56 White Blood Count 20.4 x10^3/uL (4.0-11.0) Red Blood Count 2.58 x10^6/uL (4.30-5.70) Hemoglobin 6.9 g/dL (13.0-17.5) Hematocrit 22.0 % (39.0-53.0) Mean Corpuscular Volume 85 fL (79-100) Mean Corpuscular Hemoglobin 27 pg (25-35) Mean Corpuscular Hemoglobin Concent 31 g/dL (31-37) Red Cell Distribution Width 19.0 % (11.5-14.5) Platelet Count 424 x10^3/uL (140-400) Neutrophils (%) (Auto) 66 % (31-73) Lymphocytes (%) (Auto) 19 % (24-48) Monocytes (%) (Auto) 12 % (0-9) Eosinophils (%) (Auto) 2 % (0-3) Basophils (%) (Auto) 1 % (0-3) Neutrophils # (Auto) 13.5 x10^3/uL (1.8-7.7) Lymphocytes # (Auto) 3.9 x10^3/uL (1.0-4.8) Monocytes # (Auto) 2.5 x10^3/uL (0.0-1.1) Eosinophils # (Auto) 0.3 x10^3/uL (0.0-0.7) Basophils # (Auto) 0.2 x10^3/uL (0.0-0.2) Glucose (Fingerstick) 316 mg/dL (70-99) 343 mg/dL (70-99) 171 mg/dL (70-99) Test 05/30/21 23:26 05/31/21 05:51 05/31/21 06:00 Glucose (Fingerstick) 236 mg/dL (70-99) 236 mg/dL (70-99) White Blood Count 23.4 x10^3/uL (4.0-11.0) Red Blood Count 3.07 x10^6/uL (4.30-5.70) Hemoglobin 8.4 g/dL (13.0-17.5) Hematocrit 26.0 % (39.0-53.0) Mean Corpuscular Volume 85 fL (79-100) Mean Corpuscular Hemoglobin 27 pg (25-35) Mean Corpuscular Hemoglobin Concent 32 g/dL (31-37) Red Cell Distribution Width 18.2 % (11.5-14.5) Platelet Count 405 x10^3/uL (140-400) Neutrophils (%) (Auto) 66 % (31-73) Lymphocytes (%) (Auto) 18 % (24-48) Monocytes (%) (Auto) 11 % (0-9) Eosinophils (%) (Auto) 4 % (0-3) Basophils (%) (Auto) 1 % (0-3) Neutrophils # (Auto) 15.5 x10^3/uL (1.8-7.7) Lymphocytes # (Auto) 4.3 x10^3/uL (1.0-4.8) Monocytes # (Auto) 2.6 x10^3/uL (0.0-1.1) Eosinophils # (Auto) 0.9 x10^3/uL (0.0-0.7) Basophils # (Auto) 0.2 x10^3/uL (0.0-0.2) Sodium Level 141 mmol/L (136-145) Potassium Level 4.0 mmol/L (3.5-5.1) Chloride Level 106 mmol/L (98-107) Carbon Dioxide Level 27 mmol/L (21-32) Anion Gap 8 (6-14) Blood Urea Nitrogen 28 mg/dL (8-26) Creatinine 2.0 mg/dL (0.7-1.3) Estimated GFR (Cockcroft-Gault) 39.7 Glucose Level 253 mg/dL (70-99) Calcium Level 8.9 mg/dL (8.5-10.1) Phosphorus Level 2.2 mg/dL (2.6-4.7) Magnesium Level 1.8 mg/dL (1.8-2.4) Laboratory Tests Test 05/30/21 12:26 05/30/21 16:54 05/30/21 20:56 05/30/21 23:26 Glucose (Fingerstick) 316 mg/dL (70-99) 343 mg/dL (70-99) 171 mg/dL (70-99) 236 mg/dL (70-99) Test 05/31/21 05:51 05/31/21 06:00 Glucose (Fingerstick) 236 mg/dL (70-99) White Blood Count 23.4 x10^3/uL (4.0-11.0) Red Blood Count 3.07 x10^6/uL (4.30-5.70) Hemoglobin 8.4 g/dL (13.0-17.5) Hematocrit 26.0 % (39.0-53.0) Mean Corpuscular Volume 85 fL (79-100) Mean Corpuscular Hemoglobin 27 pg (25-35) Mean Corpuscular Hemoglobin Concent 32 g/dL (31-37) Red Cell Distribution Width 18.2 % (11.5-14.5) Platelet Count 405 x10^3/uL (140-400) Neutrophils (%) (Auto) 66 % (31-73) Lymphocytes (%) (Auto) 18 % (24-48) Monocytes (%) (Auto) 11 % (0-9) Eosinophils (%) (Auto) 4 % (0-3) Basophils (%) (Auto) 1 % (0-3) Neutrophils # (Auto) 15.5 x10^3/uL (1.8-7.7) Lymphocytes # (Auto) 4.3 x10^3/uL (1.0-4.8) Monocytes # (Auto) 2.6 x10^3/uL (0.0-1.1) Eosinophils # (Auto) 0.9 x10^3/uL (0.0-0.7) Basophils # (Auto) 0.2 x10^3/uL (0.0-0.2) Sodium Level 141 mmol/L (136-145) Potassium Level 4.0 mmol/L (3.5-5.1) Chloride Level 106 mmol/L (98-107) Carbon Dioxide Level 27 mmol/L (21-32) Anion Gap 8 (6-14) Blood Urea Nitrogen 28 mg/dL (8-26) Creatinine 2.0 mg/dL (0.7-1.3) Estimated GFR (Cockcroft-Gault) 39.7 Glucose Level 253 mg/dL (70-99) Calcium Level 8.9 mg/dL (8.5-10.1) Phosphorus Level 2.2 mg/dL (2.6-4.7) Magnesium Level 1.8 mg/dL (1.8-2.4) Medications Active Scripts Medications Dose Route/Sig Max Daily Dose Days Date Category Glyburide 2.5 Mg Tablet 1 Tab PO DAILY 04/19/21 Rx Polyethylene Glycol 3350 17 Gm Powd.pack 17 Gm PO DAILY 04/19/21 Rx Dok (Docusate Sodium) 100 Mg Capsule 100 Mg PO PRN DAILY PRN 04/19/21 Rx Bisacodyl 5 Mg Tablet.dr 5 Mg PO PRN DAILY PRN 21 Rx Acetaminophen 325 Mg Tablet 650 Mg PO PRN Q4HRS PRN 14 04/19/21 Rx Aspirin Ec (Aspirin) 81 Mg Tablet. 81 Mg PO DAILYWBKFT 30 04/19/21 Rx Hydralazine Hcl 25 Mg Tablet 25 Mg PO QID 30 04/19/21 Rx Fenofibrate 54 Mg Tablet 1 Tab PO DAILY 04/17/21 Reported Potassium Chloride (Potassium Chloride) 20 Meq Tablet.er 20 Meq PO DAILY 04/17/21 Reported Coreg (Carvedilol) 12.5 Mg Tablet 37.5 Mg PO BIDWMEALS 04/17/21 Reported Rosuvastatin Calcium 40 Mg Tablet 40 Mg PO QHS 04/17/21 Reported Gabapentin (Gabapentin) 100 Mg Capsule 200 Mg PO BID 04/17/21 Reported Montelukast Sodium Tablet (Montelukast Sodium) 10 Mg Tablet 10 Mg PO HS 04/17/21 Reported Protonix (Pantoprazole Sodium) 20 Mg Tablet.dr 2 Tab PO DAILY 04/17/21 Reported Amlodipine Besylate 5 Mg Tablet 5 Mg PO DAILY 04/17/21 Reported Furosemide 40 Mg Tablet 1 Tab PO DAILY 04/17/21 Reported Proair Hfa Inhaler (Albuterol Sulfate) 8.5 Gm Hfa.aer.ad 2 Puff IH PRN Q4-6HRS PRN 21 04/16/21 Reported Advair 100-50 Diskus (Fluticasone/Salmeterol) 1 Each Disk.w.dev 1 Puff IH BID 04/16/21 Reported Comments Impression . IMPRESSION: 1. Acute hypoxic respiratory failure, multifactorial/COVID-19 viral pneumonia/ARDS, ongoing, intubated 04/25/2021, now status post tracheostomy 05/15/[address] chest with bilateral diffuse interstitial infiltrates without any significant pleural effusion 3. Leukocytosis, sepsis--improved 4. Non-ST segment elevation [place] 5. History of tobacco use, suspect COPD, unknown FEV1 6. Chronic kidney disease.== HD as needed per renal 7. Metabolic acidosis multifactorial 8. Abnormal chest x-ray 9. Hypoglycemia, continue to monitor--- resolved 10. Hypotension, suspect volume deficit,/possible sepsis--- resolved 11. Fever--improved 12. Anemia--improved 13. Atrial fibrillation with rapid ventricular response, currently rate con trolled 14. Ileus Plan . Updated 05/31/21 Continue current ventilatory support, 20/500/40/5 Continue Precedex for sedation Monitor HGB Follow GI recs-- ileus, PEG tube on hold, nursing reports 75 cc of NG output Follow nephrology recs--currently on hemodialysis Follow infectious disease recommendations for ABX Continue TPN for nutritional support DVT/GI PPX: sq heparin-- on hold D/W RN and RT Pt. is DNR CC time 30 minutes ANGELLA JUAREZ [employer] May 31, 2021 11:47
[2021-05-31] MEDS ORDERED: POTASSIUM PHOSPHATE DIBASIC 13.6 MMOL in IV NS 250 ML IV ONE (12:00)
[2021-05-31] MEDS: CEFEPIME HCL IV Push 1 GM VIAL. IVP SCH ×2 (12:22→20:10)
--- NOTE | 2021-05-31 12:52 | PDOC ---
[employer] PROGRESS NOTE Date of Service DOS: DATE: 05/31/21 TIME: 12:48 Chief Complaint Chief Complaint Respiratory failure requiring intubation COVID-19 Acute ID A. fib SIRS Hypertension with hypertensive urgency Hyperlipidemia CKD Diabetes History of bilateral subclavian stenosis History of marijuana use Severe protein calorie malnutrition Trach placed on May 15 GI consulted for PEG evaluation --> patient with a lot of vomiting yesterday thus current NG tube to low intermittent suction Anemia secondary to acute blood loss, possible multiple lab draws and related to advanced CKD History of Present Illness History of Present Illness 05/31/2021 No acute events overnight. Patient saturating 100% on trach collar. Hemoglobin improved after 1 unit PRBC transfusion to 8.4. Patient is currently undergoing dialysis and his labs have been stable. Patient's chart, labs, images were reviewed and discussed with RN A total of 38 minutes of critical care time was spent in reviewing chart, labs, and images. Discussed with RN and SW. 05/30/2021 No acute events overnight. Patient doing well on trach collar. Hemoglobin decreased down to 6.7 pending 1 unit PRBC transfusion. Restarted on linezolid and Flagyl and cefepime. Pending PICC placement and central line IJ removal. Patient's chart, labs, images were reviewed and discussed with RN 05/29/2021 No acute events or night. Patient tolerating trach collar humidified. Saturating at 99%. Pending PICC line placement and IJ central line removal. Per ID. Possibly in not needing HD. Making urine adequately with Lasix as needed. Patient's chart, labs, images were reviewed and discussed with RN A total of 34 minutes of critical care time was spent in reviewing chart, labs, and images. Discussed with RN and SW. 05/28/2021 No acute events overnight. Patient doing well on trach with settings of 40% FiO2 and PEEP of 8. Pending PEG placement after ileus is resolved will defer this to GI for timing of PEG placement.. Also pending tunneled catheter placement for dialysis. Patient's chart, labs, images were reviewed and discussed with RN A total of 31 minutes of critical care time was spent in reviewing chart, labs, and images. Discussed with RN and SW. 05/27/2021: Afebrile. On vent with FiO2 40%, PEEP 5. Hemoglobin remains stable at 7.2 today; continue to trend. WBC 13.4. Kidney function appears to be stabilized. LTAC transfer is pending PEG tube placement. Off meropenem; will continue to monitor. Kidney function appears to be stable. Critical care time 30 minutes spent reviewing charts, reviewing labs, reviewing imaging, discussion with RN. 05/26/2021: Afebrile. On vent with FiO2 40%, PEEP 5. Hemoglobin 7.3 yesterday, and hemoglobin 7.2 today; continue to trend. Leukocytosis slightly improved, WBC 12.9 today. Has been accepted at [facility]; transfer pending, but will need PEG tube placement prior. Critical care time 30 minutes spent reviewing charts, reviewing labs, reviewing imaging, discussion with RN. 05/25/2021: Afebrile. On vent with FiO2 40%, PEEP 5. Hemoglobin 8.6 yesterday, hemoglobin 7.3 today. Reportedly had HD yesterday. Continue IV antibiotics, per ID; WBC possibly reactive to ileus. Has been accepted at [facility]; transfer pending, but will need PEG tube placement prior. Critical care time 30 minutes spent reviewing charts, reviewing labs, reviewing imaging, discussion with RN. 05/24/2021: No acute events overnight. Afebrile. NG tube output has decreased. Kidney function appears stable. Continue IV antibiotics, per ID. Patient has been accepted to [facility], pending insurance authorization. Critical care time 30 minutes spent reviewing charts, reviewing labs, reviewing imaging, discussion with RN. 05/23/2021: Afebrile. On vent with FiO2 40%, PEEP 5. NG tube for 635 mL out overnight. Continue NG tube to suction. HD per nephrology. Continue IV antibiotics, per ID. Critical care time 30 minutes spent reviewing charts, reviewing labs, reviewing imaging, discussion with RN. 05/22/2021: Afebrile. On vent with FiO2 40%, PEEP 5. Continues to have excessive NG output. Continue NG tube to suction for now; PEG on hold for now. Continue hemodialysis, per nephrology. Continue IV antibiotics, per ID. Social work helping with discharge planning to LTACH likely in the near future after PEG is placed. Critical care time 30 minutes spent reviewing charts, reviewing labs, reviewing imaging, discussion with RN. 05/21/2021: Afebrile, no acute events overnight. Remains on vent, FiO2 40%, PEEP 5. S/P tracheostomy on 05/15/2021. KUB on 05/19/2021 consistent with ileus. Per GI, continue NG tube to suction and parenteral nutrition for now. Continue IV antibiotics, per ID. Continue hemodialysis, per nephrology. Continue supportive care. Critical care time 30 minutes spent reviewing charts, reviewing imaging, reviewing labs, and discussed with RN. 05/20/21 Patient seen and examined at bedside. Again had multiple bouts of vomiting yes terday. GI continuing to follow for PEG evaluation although on hold right now due to persistent vomiting. Leukocytosis does persist but patient afebrile. Plan of care discussed with bedside RN 05/19/21 Patient seen and examined at bedside. Apparently had a fair bit of vomiting overnight. GI following for PEG evaluation. Otherwise patient remained stable. Plan of care discussed with bedside nurse. 05/18/21 Patient seen and examined at bedside. Attempting to increase tube feeds, GI consulted for PEG evaluation. Otherwise no major clinical changes. Continue to wean sedation. Plan of care discussed with bedside nurse. 05/17/21 Patient seen and examined at bedside. Attempting to wean sedation. Patient with some diarrhea. Per infectious disease will give erythromycin eye ointment for eye lesions. Nephro and pulm also following. Continue sedation weaning, plan of care discussed with bedside nurse. 05/16/21 Patient seen and examined at bedside. Underwent tracheostomy yesterday today tolerated well. When seen this morning patient is still notably sedated respiratory status is stable. Continue antibiotics and supportive measures. Plan of care discussed with bedside nurse. Attempt to wean sedation. 05/15/21 Patient seen and examined at bedside Remains intubated and sedated planning for tracheostomy today Continue current respiratory support; continue antibiotics, continue sedation Follow recommendations of pulmonary, renal, and infectious disease Plan of care discussed with bedside nurse Will follow up with patient after surgery today 05/14/21 Patient seen and examined at bedside Remains intubated and sedated planning for tracheostomy tomorrow Continue current respiratory support; continue antibiotics, continue sedation Follow recommendations of pulmonary, renal, and infectious disease Plan of care discussed with bedside nurse 05/13/2021 did not tolerate sedation vacation 05/11/2021, profoundly hypertensive ABG/CXR--changes as needed Continue iv cefepime , add zyvox, sputum culture VENT [id number]%, 5 of PEEP Mild pulmonary edema with new small right pleural effusion and basilar opacities now on cardene gtt prn Patient seen and examined in the [place] [id number] ICU remains mechanically ventilated ILDA on CKD - ATN 2/2 sepsis/ Hypotension,UOP good,on IV Lasix ; requiring dialysis, Sedated with propofol Dex and fentanyl Chart reviewed Discussed with RN He remains critically ill intubated/sedated cont cardene gtt not able to tolerate PS trial 05/06/21 Change central line and send cath tip for cultures. 05-09 C. difficile PCR ADELSO AVILA MD ORDERED: BCULT Procedure Result BLOOD CULTURE Final NO GROWTH AFTER 5 DAYS JONES FISHMAN MD, CHRISTOPHER S MD BLOOD CULTURE Preliminary NO GROWTH AFTER 4 DAYS 37 min cc time 05/12/2021 Continue iv cefepime , add zyvox, sputum culture VENT %, 5 of PEEP Mild pulmonary edema with new small right pleural effusion and basilar opacities now on cardene gtt prn Patient seen and examined in the [place] [id number] ICU remains mechanically ventilated ILDA on CKD - ATN 2/2 sepsis/ Hypotension,UOP good,on IV Lasix ; requiring dialysis, Sedated with propofol Dex and fentanyl Chart reviewed Discussed with RN He remains critically ill intubated/sedated cont cardene gtt not able to tolerate PS trial 05/06/21 Change central line and send cath tip for cultures. 05-09 C. difficile PCR JONES FISHMAN MD,ADELSO DASILVA MD, MD ORDERED: BCULT Procedure Result BLOOD CULTURE Preliminary NO GROWTH AFTER 2 DAYS BLOOD CULTURE Preliminary NO GROWTH AFTER 4 DAYS 33 min cc time 05/11/2021 Continue iv cefepime , add zyvox, sputum culture VENT [id number]%, 5 of PEEP Mild pulmonary edema with new small right pleural effusion and basilar opacities now on cardene gtt prn Patient seen and examined in the [place] [id number] ICU remains mechanically ventilated ILDA on CKD - ATN 2/2 sepsis/ Hypotension,UOP good,on IV Lasix ; requiring dialysis, Sedated with propofol Dex and fentanyl Chart reviewed Discussed with RN He remains critically ill intubated/sedated cont cardene gtt not able to tolerate PS trial 05/06/21 Change central line and send cath tip for cultures. 05-09 C. difficile PCR JONES FISHMAN MD,BRIAN AVILA,ADELSO POTTER ORDERED: BCULT Procedure Result BLOOD CULTURE Preliminary NO GROWTH AFTER 2 DAYS BLOOD CULTURE Preliminary NO GROWTH AFTER 4 DAYS 36 min cc time 05/10/2021 VENT %, 5 of PEEP Mild pulmonary edema with new small right pleural effusion and basilar opacities now on cardene gtt prn Patient seen and examined in the [facility] ICU remains mechanically ventilated ILDA on CKD - ATN 2/2 sepsis/ Hypotension,UOP good,on IV Lasix ; requiring dialysis, Sedated with propofol Dex and fentanyl Chart reviewed Discussed with RN He remains critically ill intubated/sedated cont cardene gtt not able to tolerate PS trial 05/06/21 Change central line and send cath tip for cultures. 05-09 C. difficile PCR JONES FISHMAN MD, CHRISTOPHER S MD SISILLO, SABATO MD ORDERED: BCULT Procedure Result BLOOD CULTURE Preliminary NO GROWTH AFTER 2 DAYS BLOOD CULTURE Preliminary NO GROWTH AFTER 4 DAYS 33 min cc time 05/09/2021 VENT [id number]%, 5 of PEEP Mild pulmonary edema with new small right pleural effusion and basilar opacities now on cardene gtt prn Patient seen and examined in the [facility] ICU remains mechanically ventilated ILDA on CKD - ATN 2/2 sepsis/ Hypotension,UOP good,on IV Lasix ; requiring dialysis, Sedated with propofol Dex and fentanyl Chart reviewed Discussed with RN He remains critically ill intubated/sedated cont cardene gtt not able to tolerate PS trial 05/06/21 Change central line and send cath tip for cultures. 05-09 C. difficile PCR JONES FISHMAN MD, CHRISTOPHER S MD SISILLO, SABATO MD ORDERED: BCULT Procedure Result BLOOD CULTURE Preliminary NO GROWTH AFTER 2 DAYS BLOOD CULTURE Preliminary NO GROWTH AFTER 4 DAYS 37 min cc time 05/08/2021 Currently on 40%, 5 of PEEP now on cardene gtt Patient seen and examined in the [place] [address] ICU remains mechanically ventilated ILDA on CKD - ATN 2/2 sepsis/ Hypotension,UOP good,on IV Lasix ; requiring dialysis, AC/20/500/40 percent with 5 of PEEP Sedated with propofol Dex and fentanyl Chart reviewed Discussed with RN He remains critically ill intubated/sedated cont cardene gtt not able to tolerate PS trial 05/06/21 JONES FISHMAN MD,ADELSO DASILVA MD, MD ORDERED: BCULT Procedure Result BLOOD CULTURE Preliminary NO GROWTH AFTER 2 DAYS BLOOD CULTURE Preliminary NO GROWTH AFTER 4 DAYS 33 min cc time 05/07/2021 Patient seen and examined in the [place] [address] ICU He remains mechanically ventilated ILDA on CKD - ATN 2/2 sepsis/ Hypotension,UOP good,on IV Lasix ; requiring dialysis, AC/20/500/40 percent with 5 of PEEP Sedated with propofol Dex and fentanyl Chart reviewed Discussed with RN He remains critically ill intubated/sedated cont cardene gtt not able to tolerate PS trial 05/06/21 JONES FISHMAN MD,ADELSO DASILVA MD, MD ORDERED: BCULT --- --------- Procedure Result BLOOD CULTURE Preliminary NO GROWTH AFTER 2 DAYS 36 min cc time 05/06/2021 Patient seen and examined in the [place] [address] ICU He remains mechanically ventilated AC/20/500/40 percent with 5 of PEEP Sedated with propofol Dex and fentanyl Chart reviewed Discussed with RN He remains critically ill 05/05/2020 Patient seen and examined in the [place] [address] ICU He remains on the vent AC/20/500/40 percent with 5 of PEEP Discussed with RN Chart reviewed Has SCDs in place Nieves to bedside drainage He remains critically ill 05/04/2021 Patient seen and examined in the [place] [address] ICU Still intubated Sedated with propofol and fentanyl AC/20/500/70 percent with 5 of PEEP On dialysis currently Has SCDs in Nieves to bedside drainage Discussed with RN Chart reviewed 05/03/2021 Patient seen and examined in the [place] [address] ICU He is still intubated AC/20/500/70 percent with 5 of PEEP Has SCDs in place Nieves to bedside drainage Sedated with fentanyl Versed and propofol Discussed are Chart reviewed Remains critically ill 05/02/2021 Patient seen and examined in the [place] [address] ICU He is sedated with propofol fentanyl and Versed Ventilator settings as follow AC/20/500/40 percent with 5 of PEEP Has Nieves to bedside drainage Chart reviewed Discussed with RN He remains critically ill 05/01/2021 Patient seen and examined in the [place] [address] ICU He is still intubated AC/20/500/40 percent with 5 of PEEP In A. fib Sedated with propofol fentanyl and Versed Has a heparin drip Missy with RN Chart reviewed He remains critically 04/30/2020 Patient seen and examined in the [place] [address] ICU He remains on the vent AC/20/500/40 5% with 5 PEEP Currently on dialysis Has OG feeds running Has a Nieves to bedside drainage Sedated with propofol and fentanyl Reviewed chart Discussed with RN He remains critically ill Mr Cunha is a 75 yo male w/ PMHx CAD, HTN, Hyperlipidemia, subclavian steel syndrome, subclavian stenosis s/p left subclavian sent placement complicated by retroperitoneal hematoma s/p evacuation in 08/2015), asthma, BART, CKD, DM2 who presented from home with home health care noted that he was short of breath and valverde with O2 saturations less than 89% as low as 84% not improved with nasal cannulated oxygen placed on CPAP and brought to ED for further care. He was just discharged from the hospital a week ago on April 19, 2021 for abdominal pain and was going for further cardiac testing with outpatient stress testing scheduled on May 28, 2021. Had echocardiogram April 17, 2021 with normal-appearing EF with moderate concentric LVH no significant valvular abnormalities. WBC 20, Hb 10.7, platelets 268, NA 140, K3.8, BUN 21, CR 2.9, glucose 162, albumin 3, troponin I 1.372, NT proBNP 33,318. EKG appears sinus tachycardia rate of 105 bpm with multiple PACs small ST depre ssions in lead II and V5. TWI in V6. Chest radiograph with diffuse interstitial and alveolar opacities and ET tube 5.8 cm above the leilani. Due to worsening respiratory status ED physician elected to intubate patient. Seen postintubation. Blood pressure little low after propofol bolus, but improved. Significant white frothy sputum per ET tube. Admitted to ICU for further care 04/29/2021: Afebrile, remains on vent at FiO2 45%, PEEP 5. WBC 20.4. Hemodialysis per nephrology. We will continue treatment with empiric antibiotics, remdesivir, and steroids. Continue heparin infusion and supportive care. Critical care time 30 minutes reviewing chart, review labs, review imaging, discussion with RN. 04/28/2021: Afebrile. FiO2 50%, PEEP 5. Nontunneled HD catheter placed yesterday due to worsening kidney function; eGFR 16 (CKD4). Chest x-ray showed unchanged interstitial opacities. Continue empiric antibiotics, steroids, and remdesivir. Continue heparin infusion, and continue to follow cardiology recommendations on new diagnosis of A. fib. Critical care time 30 minutes reviewing chart, review labs, review imaging, discussion with RN. 04/27/2021: Afebrile. On vent with FiO2 50%, PEEP 5. Troponin 2.8 yesterday; probable type II, demand ischemia. New onset A. fib. Continue heparin drip and as needed digoxin, per cardiology. Continue treatment with remdesivir, steroids, and prophylactic antibiotics. CBG 323 this morning; will add basal insulin. Critical care 30 minutes spent reviewing labs, reviewing imaging, reviewing charts, and discussion with RN. 04/26/2021: COVID-19 positive. Febrile overnight that was managed with cooling blankets. On vent with FiO2 50%, PEEP 5. Per cardiology, elevated troponins likely secondary to demand ischemia; continue heparin drip per cardiology. Maintain fluid balance and avoid nephrotoxins. Continue treatment with remdesivir, steroids, and prophylactic antibiotics. 30 minutes critical care time spent reviewing charts, reviewing labs, reviewing imaging, and discussion with RN. 04/25/2021: On vent FiO2 50, PEEP 5. Febrile, T-max 103.3. Patient was initiated on cooling blankets. Procalcitonin 0.13. Continue coverage for hospital-acquired pneumonia with cefepime. MRSA PCR pending. Critical care time 30 minutes spent reviewing charts, reviewing labs, review of imaging, discussion with RN. Vitals/I&O Vitals/I&O: Vital Signs Date Time Temp Pulse Resp B/P (MAP) Pulse Ox O2 Delivery O2 Flow Rate FiO2 05/31/21 12:28 Mechanical Ventilator 05/31/21 12:14 99.1 122 28 189/121 (143) 100 99.1 05/31/21 05:54 10.0 I & O 05/30/21 05/30/21 05/31/21 15:00 23:00 07:00 Intake Total 100 ml 933 ml 1334 ml Output Total 675 ml 700 ml 375 ml Balance -575 ml 233 ml 959 ml Physical Exam Physical Exam: GENERAL: Well-developed and well-nourished male, sedated HEENT: Normocephalic, atraumatic, redness and erythema of both eyes improved, NG tube present NECK: right dialysis catheter present clean,central line changed ( 05/11) Trach + HEART: S1, S2. LUNGS: Decreased breath sounds. ABDOMEN: Less distended, bowel sounds present GENITOURINARY: Nieves in place. EXTREMITIES: Edema present. DERMATOLOGIC: Warm, dry, no generalized rash. NEUROLOGIC: Opens eyes PICC line clean General: No acute distress, severe distress, Other (Alert and awake, trach collar site is intact without any infection) Heart: Regular rate, Normal S1, Normal S2 Lungs: Crackles Abdomen: Normal bowel sounds, Other (ND) Extremities: No clubbing, No cyanosis, Other (Lower extremity edema) Skin: No rashes, No breakdown, No significant lesion Labs Labs: Laboratory Tests Test 05/30/21 16:54 05/30/21 20:56 05/30/21 23:26 05/31/21 05:51 Glucose (Fingerstick) 343 mg/dL (70-99) 171 mg/dL (70-99) 236 mg/dL (70-99) 236 mg/dL (70-99) Test 05/31/21 06:00 05/31/21 12:23 White Blood Count 23.4 x10^3/uL (4.0-11.0) Red Blood Count 3.07 x10^6/uL (4.30-5.70) Hemoglobin 8.4 g/dL (13.0-17.5) Hematocrit 26.0 % (39.0-53.0) Mean Corpuscular Volume 85 fL (79-100) Mean Corpuscular Hemoglobin 27 pg (25-35) Mean Corpuscular Hemoglobin Concent 32 g/dL (31-37) Red Cell Distribution Width 18.2 % (11.5-14.5) Platelet Count 405 x10^3/uL (140-400) Neutrophils (%) (Auto) 66 % (31-73) Lymphocytes (%) (Auto) 18 % (24-48) Monocytes (%) (Auto) 11 % (0-9) Eosinophils (%) (Auto) 4 % (0-3) Basophils (%) (Auto) 1 % (0-3) Neutrophils # (Auto) 15.5 x10^3/uL (1.8-7.7) Lymphocytes # (Auto) 4.3 x10^3/uL (1.0-4.8) Monocytes # (Auto) 2.6 x10^3/uL (0.0-1.1) Eosinophils # (Auto) 0.9 x10^3/uL (0.0-0.7) Basophils # (Auto) 0.2 x10^3/uL (0.0-0.2) Sodium Level 141 mmol/L (136-145) Potassium Level 4.0 mmol/L (3.5-5.1) Chloride Level 106 mmol/L (98-107) Carbon Dioxide Level 27 mmol/L (21-32) Anion Gap 8 (6-14) Blood Urea Nitrogen 28 mg/dL (8-26) Creatinine 2.0 mg/dL (0.7-1.3) Estimated GFR (Cockcroft-Gault) 39.7 Glucose Level 253 mg/dL (70-99) Calcium Level 8.9 mg/dL (8.5-10.1) Phosphorus Level 2.2 mg/dL (2.6-4.7) Magnesium Level 1.8 mg/dL (1.8-2.4) Glucose (Fingerstick) 222 mg/dL (70-99) Assessment and Plan Assessmemt and Plan Problems Medical Problems: (1) Elevated troponin Status: Acute (2) Person under investigation for COVID-19 Status: Acute (3) Pulmonary edema Status: Acute Comment Review of Relevant I have reviewed the following items juanita (where applicable) has been applied. Medications: Current Medications Medications (Trade) Dose Ordered Sig/Jodie Route PRN Reason Start Time Stop Time Status Last Admin Dose Admin Sodium Chloride 90 meq/Potassium Chloride 50 meq/ Potassium Phosphate 5 mmol/ Magnesium Sulfate 10 meq/Calcium Gluconate 5 meq/ Multivitamins 5 ml/Zinc/Copper/ Manganese/ Selenium 1 ml/ Total Parenteral Nutrition/Amino Acids/Dextrose/ Fat Emulsion Intravenous 1,200 ml @ 50 mls/hr TPN CONT IV 05/30/21 22:00 05/31/21 21:59 05/30/21 21:57 Insulin Glargine (Lantus Syringe) 20 unit BID SQ 05/31/21 09:00 05/31/21 08:52 Potassium Phosphate 13.6 mmol/Sodium Chloride 254.5333 ml @ 127.... 1X ONCE IV 05/31/21 12:00 05/31/21 13:59 05/31/21 12:08 Justifications for Admission General Conditions Altered mental status?: Yes Justification of admission: Patient has tachycardia (> 100 beats per minute) or hypotension (SBP < 90 mm Hg) leading to inadequate systemic perfusion as indicated by severe/persistent altered mental status. Other Justification ILDA HUY IQBAL MD May 31, 2021 12:52
--- NOTE | 2021-05-31 15:22 | NUR ---
SS following up with discharge planning. SS reviewed pt chart and discussed with pt RN. Pt is currently on the vent at 40%. COVID19 recovered. NG in place. TPN. Currently awaiting ileus to resolve. Pt on Fentanyl and Precedex. Hemodialysis and unit of blood today. Pt on IV Cefepime and IV Zyvox. Pt accepted at [facility], ; fax [phone], pending insurance approval. Per [facility], ilieus needs to be improved and pt needs to be on less FI02 prior to authorizing. SS will continue to follow for discharge planning. Addendum: 05/31/21 at 1523 by LAKHWINDER CUETO SS Correction to note: Pt had one unit of blood yesterday.
[2021-05-31] MEDS: ATORVASTATIN CALCIUM 40 MG TABLET. PO SCH (20:10)
[2021-05-31] MEDS: MONTELUKAST SODIUM 10 MG TABLET. PO SCH (20:10)
[2021-05-31] MEDS ORDERED: TOTAL PARENTERAL NUTRITION IV SCH (22:00)
[2021-05-31] MEDS ORDERED: [UNRECOGNIZED DRUG - OTHER] IV SCH (22:00)
[2021-05-31] MEDS ORDERED: DEXTROSE 70% IV SCH (22:00)
[2021-05-31] MEDS ORDERED: AMINO ACID IV SCH (22:00)
[2021-06-01] VITALS (24 sets, daily range): BP systolic 116–192; BP diastolic 49–101
[2021-06-01] MEDS: METOPROLOL IV PUSH 5 MG/5 ML VIAL. IVP SCH ×5 (00:15→23:54)
[2021-06-01] MEDS: DEXMEDETOMIDINE 400 MCG in IV NORMAL SALINE 100ML 96 ML IV PRN ×8 (00:16→22:32)
[2021-06-01] MEDS: INSULIN LISPRO 300 UNITS/3 ML VIAL. SQ SCH ×4 (00:17→17:34)
[2021-06-01 06:24] LABS: CALCIUM 8.3 mg/dL (8.5-10.1); CREATININE 1.9 mg/dL (0.7-1.3); GFR 42.1; MAGNESIUM 1.8 mg/dL (1.8-2.4); PHOSPHORUS 2.1 mg/dL (2.6-4.7); POTASSIUM 3.4 mmol/L (3.5-5.1)
[2021-06-01 06:59] LABS: HEMATOCRIT 22.4 % (39.0-53.0); HEMOGLOBIN 7.3 g/dL (13.0-17.5); RED BLOOD COUNT 2.64 x10^6/uL (4.30-5.70); RED CELL DISTRIBUTION WIDTH 17.9 % (11.5-14.5); WHITE BLOOD COUNT 16.5 x10^3/uL (4.0-11.0)
[2021-06-01] MEDS: ASPIRIN CHEWABLE 81 MG TABLET. PO SCH (07:41)
--- NOTE | 2021-06-01 07:44 | PDOC ---
Infectious Disease Note Subjective: Subjective Pt remains vent dependent remains afebrile last 24 hrs Undergoing dialysis session Discussed with nursing staff Vital Signs: Vital Signs Vital Signs Date Time Temp Pulse Resp B/P (MAP) Pulse Ox O2 Delivery O2 Flow Rate FiO2 06/01/21 07:00 52 20 129/61 (83) 100 Ventilator 06/01/21 04:00 98.7 98.7 Physical Exam: PHYSICAL EXAM GENERAL: Well-developed and well-nourished male, sedated HEENT: Normocephalic, atraumatic, redness and erythema of both eyes improved, NG tube present NECK: right dialysis catheter present clean,central line changed ( 05/11) Trach + HEART: S1, S2. LUNGS: Decreased breath sounds. ABDOMEN: Less distended, bowel sounds present GENITOURINARY: Mooney in place. EXTREMITIES: Edema present. DERMATOLOGIC: Warm, dry, no generalized rash. NEUROLOGIC: Opens eyes PICC line clean Medications: Inpatient Meds: Medications reviewed. Labs: Lab Laboratory Tests Test 05/31/21 12:23 05/31/21 18:09 05/31/21 23:47 06/01/21 05:44 Glucose (Fingerstick) 222 mg/dL (70-99) 243 mg/dL (70-99) 224 mg/dL (70-99) 137 mg/dL (70-99) Test 06/01/21 05:45 White Blood Count 16.5 x10^3/uL (4.0-11.0) Red Blood Count 2.64 x10^6/uL (4.30-5.70) Hemoglobin 7.3 g/dL (13.0-17.5) Hematocrit 22.4 % (39.0-53.0) Mean Corpuscular Volume 85 fL (79-100) Mean Corpuscular Hemoglobin 28 pg (25-35) Mean Corpuscular Hemoglobin Concent 33 g/dL (31-37) Red Cell Distribution Width 17.9 % (11.5-14.5) Platelet Count 333 x10^3/uL (140-400) Sodium Level 140 mmol/L (136-145) Potassium Level 3.4 mmol/L (3.5-5.1) Chloride Level 105 mmol/L (98-107) Carbon Dioxide Level 27 mmol/L (21-32) Anion Gap 8 (6-14) Blood Urea Nitrogen 28 mg/dL (8-26) Creatinine 1.9 mg/dL (0.7-1.3) Estimated GFR (Cockcroft-Gault) 42.1 Glucose Level 139 mg/dL (70-99) Calcium Level 8.3 mg/dL (8.5-10.1) Phosphorus Level 2.1 mg/dL (2.6-4.7) Magnesium Level 1.8 mg/dL (1.8-2.4) Objective: Assessment: 1. Febrile illnessresolved 2. Leukocytosis, was on steroids,ileus could contribute,improving 3. COVID-19 pneumonia. 4. Acute hypoxic respiratory failure status post intubation.Now S/P Trach 05/15 Pleural effusion 5. Congestive heart failure, acute on chronic. 6. Acute kidney injury on chronic kidney disease on hemodialysis. 7. Diabetes mellitus 2. 8. Atrial fibrillation. 9. Anemia. 10. Protein-calorie malnutrition. 11. Hypertention 12.Hyponatremia 13. Ileus, Bowel obstruction Peg TF on hold, OG to LIS 14.on PPN 15.Mild to Moderate Pleural effusion 16.Lt eye conjunctivitis resolved Plan: Plan of Care Cefepime and flagyl cont zyvox 05/31 Monitor labs and cultures HDC/ Central line changed on 05/11, Continue supportive care. cont local eye care mooney changed 05/30 Per team unable to get PICC line Awaiting perm cath for HDC and central line placement C. difficile PCR negative Remains critically ill Prognosis guarded Discussed with nursing staff ALAYNA RIVERO MD Jun 01, 2021 07:44
[2021-06-01] MEDS ORDERED: DIALYSIS PATIENT. MC PRN ×2 (08:00)
[2021-06-01] MEDS ORDERED: ALBUMIN HUMAN 25% 100 ML IV PRN (08:00)
[2021-06-01] MEDS ORDERED: IV NORMAL SALINE 1000ML BAG 1,000 ML IV PRN ×2 (08:00)
[2021-06-01] MEDS ORDERED: 0.9 % SODIUM CHLORIDE 10 ML DISP.SYRIN. IV PRN ×2 (08:00)
[2021-06-01] MEDS: NYSTATIN TOPICAL POWDER 15GM BOTTLE. TP SCH ×2 (09:16→11:48)
--- NOTE | 2021-06-01 10:14 | PDOC ---
PULMONARY PROGRESS NOTES DATE: 06/01/21 TIME: 10:12 Subjective Patient is back on assist control mode, 40% Seen while on hemodialysis Hypotensive today while on dialysis. Vitals Vital Signs Date Time Temp Pulse Resp B/P (MAP) Pulse Ox O2 Delivery O2 Flow Rate FiO2 06/01/21 10:00 55 20 124/63 (83) 100 Ventilator 06/01/21 08:00 98.4 98.4 Comments Tracheostomy unable to report HEENT: Other (Trachea midline) Lungs: Crackles Cardiovascular: S1, S2 Abdomen: Soft Extremities: No Edema Skin: Warm Labs Laboratory Tests Test 05/30/21 12:26 05/30/21 16:54 05/30/21 20:56 05/30/21 23:26 Glucose (Fingerstick) 316 mg/dL (70-99) 343 mg/dL (70-99) 171 mg/dL (70-99) 236 mg/dL (70-99) Test 05/31/21 05:51 05/31/21 06:00 05/31/21 12:23 05/31/21 18:09 Glucose (Fingerstick) 236 mg/dL (70-99) 222 mg/dL (70-99) 243 mg/dL (70-99) White Blood Count 23.4 x10^3/uL (4.0-11.0) Red Blood Count 3.07 x10^6/uL (4.30-5.70) Hemoglobin 8.4 g/dL (13.0-17.5) Hematocrit 26.0 % (39.0-53.0) Mean Corpuscular Volume 85 fL (79-100) Mean Corpuscular Hemoglobin 27 pg (25-35) Mean Corpuscular Hemoglobin Concent 32 g/dL (31-37) Red Cell Distribution Width 18.2 % (11.5-14.5) Platelet Count 405 x10^3/uL (140-400) Neutrophils (%) (Auto) 66 % (31-73) Lymphocytes (%) (Auto) 18 % (24-48) Monocytes (%) (Auto) 11 % (0-9) Eosinophils (%) (Auto) 4 % (0-3) Basophils (%) (Auto) 1 % (0-3) Neutrophils # (Auto) 15.5 x10^3/uL (1.8-7.7) Lymphocytes # (Auto) 4.3 x10^3/uL (1.0-4.8) Monocytes # (Auto) 2.6 x10^3/uL (0.0-1.1) Eosinophils # (Auto) 0.9 x10^3/uL (0.0-0.7) Basophils # (Auto) 0.2 x10^3/uL (0.0-0.2) Sodium Level 141 mmol/L (136-145) Potassium Level 4.0 mmol/L (3.5-5.1) Chloride Level 106 mmol/L (98-107) Carbon Dioxide Level 27 mmol/L (21-32) Anion Gap 8 (6-14) Blood Urea Nitrogen 28 mg/dL (8-26) Creatinine 2.0 mg/dL (0.7-1.3) Estimated GFR (Cockcroft-Gault) 39.7 Glucose Level 253 mg/dL (70-99) Calcium Level 8.9 mg/dL (8.5-10.1) Phosphorus Level 2.2 mg/dL (2.6-4.7) Magnesium Level 1.8 mg/dL (1.8-2.4) Test 05/31/21 23:47 06/01/21 05:44 06/01/21 05:45 Glucose (Fingerstick) 224 mg/dL (70-99) 137 mg/dL (70-99) White Blood Count 16.5 x10^3/uL (4.0-11.0) Red Blood Count 2.64 x10^6/uL (4.30-5.70) Hemoglobin 7.3 g/dL (13.0-17.5) Hematocrit 22.4 % (39.0-53.0) Mean Corpuscular Volume 85 fL (79-100) Mean Corpuscular Hemoglobin 28 pg (25-35) Mean Corpuscular Hemoglobin Concent 33 g/dL (31-37) Red Cell Distribution Width 17.9 % (11.5-14.5) Platelet Count 333 x10^3/uL (140-400) Sodium Level 140 mmol/L (136-145) Potassium Level 3.4 mmol/L (3.5-5.1) Chloride Level 105 mmol/L (98-107) Carbon Dioxide Level 27 mmol/L (21-32) Anion Gap 8 (6-14) Blood Urea Nitrogen 28 mg/dL (8-26) Creatinine 1.9 mg/dL (0.7-1.3) Estimated GFR (Cockcroft-Gault) 42.1 Glucose Level 139 mg/dL (70-99) Calcium Level 8.3 mg/dL (8.5-10.1) Phosphorus Level 2.1 mg/dL (2.6-4.7) Magnesium Level 1.8 mg/dL (1.8-2.4) Laboratory Tests Test 05/31/21 12:23 05/31/21 18:09 05/31/21 23:47 06/01/21 05:44 Glucose (Fingerstick) 222 mg/dL (70-99) 243 mg/dL (70-99) 224 mg/dL (70-99) 137 mg/dL (70-99) Test 06/01/21 05:45 White Blood Count 16.5 x10^3/uL (4.0-11.0) Red Blood Count 2.64 x10^6/uL (4.30-5.70) Hemoglobin 7.3 g/dL (13.0-17.5) Hematocrit 22.4 % (39.0-53.0) Mean Corpuscular Volume 85 fL (79-100) Mean Corpuscular Hemoglobin 28 pg (25-35) Mean Corpuscular Hemoglobin Concent 33 g/dL (31-37) Red Cell Distribution Width 17.9 % (11.5-14.5) Platelet Count 333 x10^3/uL (140-400) Sodium Level 140 mmol/L (136-145) Potassium Level 3.4 mmol/L (3.5-5.1) Chloride Level 105 mmol/L (98-107) Carbon Dioxide Level 27 mmol/L (21-32) Anion Gap 8 (6-14) Blood Urea Nitrogen 28 mg/dL (8-26) Creatinine 1.9 mg/dL (0.7-1.3) Estimated GFR (Cockcroft-Gault) 42.1 Glucose Level 139 mg/dL (70-99) Calcium Level 8.3 mg/dL (8.5-10.1) Phosphorus Level 2.1 mg/dL (2.6-4.7) Magnesium Level 1.8 mg/dL (1.8-2.4) Medications Active Scripts Medications Dose Route/Sig Max Daily Dose Days Date Category Glyburide 2.5 Mg Tablet 1 Tab PO DAILY 04/19/21 Rx Polyethylene Glycol 3350 17 Gm Powd.pack 17 Gm PO DAILY 04/19/21 Rx Dok (Docusate Sodium) 100 Mg Capsule 100 Mg PO PRN DAILY PRN 30 04/19/21 Rx Bisacodyl 5 Mg Tablet.dr 5 Mg PO PRN DAILY PRN 04/19/21 Rx Acetaminophen 325 Mg Tablet 650 Mg PO PRN Q4HRS PRN 04/19/21 Rx Aspirin Ec (Aspirin) 81 Mg Tablet.dr 81 Mg PO DAILYWBKFT 04/19/21 Rx Hydralazine Hcl 25 Mg Tablet 25 Mg PO QID 04/19/21 Rx Fenofibrate 54 Mg Tablet 1 Tab PO DAILY 04/17/21 Reported Potassium Chloride (Potassium Chloride) 20 Meq Tablet.er 20 Meq PO DAILY 04/17/21 Reported Coreg (Carvedilol) 12.5 Mg Tablet 37.5 Mg PO BIDWMEALS 04/17/21 Reported Rosuvastatin Calcium 40 Mg Tablet 40 Mg PO QHS 04/17/21 Reported Gabapentin (Gabapentin) 100 Mg Capsule 200 Mg PO BID 04/17/21 Reported Montelukast Sodium Tablet (Montelukast Sodium) 10 Mg Tablet 10 Mg PO HS 04/17/21 Reported Protonix (Pantoprazole Sodium) 20 Mg Tablet.dr 2 Tab PO DAILY 04/17/21 Reported Amlodipine Besylate 5 Mg Tablet 5 Mg PO DAILY 04/17/21 Reported Furosemide 40 Mg Tablet 1 Tab PO DAILY 04/17/21 Reported Proair Hfa Inhaler (Albuterol Sulfate) 8.5 Gm Hfa.aer.ad 2 Puff IH PRN Q4-6HRS PRN 21 04/16/21 Reported Advair 100-50 Diskus (Fluticasone/Salmeterol) 1 Each Disk.w.dev 1 Puff IH BID 04/16/21 Reported Comments Impression . IMPRESSION: 1. Acute hypoxic respiratory failure, multifactorial/COVID-19 viral pneumonia/ARDS, ongoing, intubated 04/25/2021, now status post tracheostomy 05/15/[address] chest with bilateral diffuse interstitial infiltrates without any significant pleural effusion 3. Leukocytosis, sepsis--improved 4. Non-ST segment elevation [place] 5. History of tobacco use, suspect COPD, unknown FEV1 6. Chronic kidney disease.== HD as needed per renal 7. Metabolic acidosis multifactorial 8. Abnormal chest x-ray 9. Hypoglycemia, continue to monitor--- resolved 10. Hypotension, suspect volume deficit,/possible sepsis--- resolved 11. Fever--improved 12. Anemia--improved 13. Atrial fibrillation with rapid ventricular response, currently rate controlled 14. Ileus Plan . Updated 06/01/21 Continue current ventilatory support, 20/500/40/5 Continue Precedex for sedation It has been difficult to wean the patient due to nonpulmonary issues such as arrhythmias, worsening hypertension and tachycardia and current ileus. Monitor HGB Follow GI recs-- ileus, PEG tube on hold, Follow nephrology recs--currently on hemodialysis Follow infectious disease recommendations for ABX Continue TPN for nutritional support DVT/GI PPX: sq heparin-- on hold D/W RN and RT Pt. is DNR CC time 30 minutes Updated 05/31/21 Continue current ventilatory support, /500/40/5 Continue Precedex for sedation Monitor HGB Follow GI recs-- ileus, PEG tube on hold, nursing reports 75 cc of NG output Follow nephrology recs--currently on hemodialysis Follow infectious disease recommendations for ABX Continue TPN for nutritional support DVT/GI PPX: sq heparin-- on hold D/W RN and RT Pt. is DNR CC time 30 minutes JONES FISHMAN MD Jun 01, 2021 10:14
--- NOTE | 2021-06-01 11:03 | PDOC ---
Date of Service: DATE: 06/01/21 TIME: 11:01 Objective: Objective: Reviewed w/ nurse: ~300cc NG output over 24 hours. Vital Signs: Vital Signs Date Time Temp Pulse Resp B/P (MAP) Pulse Ox O2 Delivery O2 Flow Rate FiO2 06/01/21 10:00 55 20 124/63 (83) 100 Ventilator 06/01/21 08:00 98.4 98.4 Labs: Laboratory Tests Test 05/31/21 12:23 05/31/21 18:09 05/31/21 23:47 06/01/21 05:44 Glucose (Fingerstick) 222 mg/dL (70-99) 243 mg/dL (70-99) 224 mg/dL (70-99) 137 mg/dL (70-99) PE: GEN: dialyzing LUNGS: vent/trach HEART: RRR ABD: quiet BS, still distended, NG green/bilious NEURO/PSYCH: eyes open, doesn't follow commands A/P: COVID-19/resp failure, CKD Ileus -- Not ready to clamp NG yet. Continue same. Justicifation of Admission Dx: Justifications for Admission: Justification of Admission Dx: Yes Aspiration Pneumonia: Hemodynamic Instability TAIWO THEODORE Jun 01, 2021 11:03
--- NOTE | 2021-06-01 11:07 | PDOC ---
Renal-Progress Notes Subjective Notes Notes NO ACUTE CHANGES History of Present Illness Hx of present illness REMAINS ON VENT SUPPORT Vitals Vitals Vital Signs Date Time Temp Pulse Resp B/P (MAP) Pulse Ox O2 Delivery O2 Flow Rate FiO2 06/01/21 10:00 55 20 124/63 (83) 100 Ventilator 06/01/21 08:00 98.4 98.4 Weight Weight [ ] I.O. Intake and Output Intake and Output 06/01/21 07:00 Intake Total 3389 ml Output Total 1405 ml Balance 1984 ml IV Total 3389 ml Output Urine Total 980 ml Gastric Drainage Total 425 ml Labs Labs Laboratory Tests Test 05/31/21 12:23 05/31/21 18:09 05/31/21 23:47 06/01/21 05:44 Glucose (Fingerstick) 222 mg/dL (70-99) 243 mg/dL (70-99) 224 mg/dL (70-99) 137 mg/dL (70-99) Test 06/01/21 05:45 White Blood Count 16.5 x10^3/uL (4.0-11.0) Red Blood Count 2.64 x10^6/uL (4.30-5.70) Hemoglobin 7.3 g/dL (13.0-17.5) Hematocrit 22.4 % (39.0-53.0) Mean Corpuscular Volume 85 fL (79-100) Mean Corpuscular Hemoglobin 28 pg (25-35) Mean Corpuscular Hemoglobin Concent 33 g/dL (31-37) Red Cell Distribution Width 17.9 % (11.5-14.5) Platelet Count 333 x10^3/uL (140-400) Sodium Level 140 mmol/L (136-145) Potassium Level 3.4 mmol/L (3.5-5.1) Chloride Level 105 mmol/L (98-107) Carbon Dioxide Level 27 mmol/L (21-32) Anion Gap 8 (6-14) Blood Urea Nitrogen 28 mg/dL (8-26) Creatinine 1.9 mg/dL (0.7-1.3) Estimated GFR (Cockcroft-Gault) 42.1 Glucose Level 139 mg/dL (70-99) Calcium Level 8.3 mg/dL (8.5-10.1) Phosphorus Level 2.1 mg/dL (2.6-4.7) Magnesium Level 1.8 mg/dL (1.8-2.4) Micro Micro Microbiology 05/30/21 Gram Stain Evaluation - Final, Resulted 05/30/21 Respiratory Culture - Preliminary, Resulted 05/30/21 Blood Culture - Preliminary, Resulted NO GROWTH AFTER 2 DAYS 05/04/21 Gram Stain - Final, Complete 05/04/21 Aerobic Culture - Final, Complete Review of Systems Constitutional: yes: unresponsive, other Physical Exam General Appearance: no apparent distress, other (ON THE VENT) Skin: warm, dry, edema Respiratory: decreased breath sounds Heart: S1S2 Abdomen: soft, N/T, distension, other Genitourinary: bladder flat, mooney catheter Extremities: pulses present, edema Neurology: other (sedated) Musculoskeletal: Other Assessment Assessment IMP HYPONATREMIA-RESOLVED HYPOKALEMIA LOW PO4- LOW MAG-CORRECTED [id number] UO BUT NO CLEARANCE CKD - SUSPECT STAGE 3 ACUTE HYPOXIC RESP FAILURE COVID 19 PNEUMONIA MET ACIDOSIS-BETTER LEUCOCYTOSIS ANEMIA S/P TRACH ANASARCA ILEUS PLAN RESP SUPPORT NUTRITION-TPN HD AGAIN TODAY UF ABOUT 4.0 LITERS IF TOLERATED ANTIBIOTICS REPLACE PO4 AND K STOP IV LASIX CONVERT TEMP TO TUNNELED HD LINE [facility] TRANSFER PENDING WILL FOLLOW JEANINE NEWTON MD Jun 01, 2021 11:06
[2021-06-01] MEDS: TPN PER PHARMACY MC PRN (11:16)
--- NOTE | 2021-06-01 11:18 | NUR ---
Pharmacy TPN Dosing Note S: NILAM LAN is a 75 year old M Currently receiving Central Continuous TPN started 05/22/21 B:Pertinent PMH: ILEUS Height: 6 feet, 2 inches Weight: 142.0 kg Current diet: NPO LABS: Sodium: 140 Potassium: 3.4 Chloride: 105 Calcium: 8.3 Corrected Calcium: 10.22 Magnesium: 1.8 CO2: 27 SCr: 1.9 Glucose: 137-139 Albumin: 1.6 AST: 27 ALT: 19 TPN FORMULA: TPN TYPE: Central Continuous AMINO ACIDS: 90 gm DEXTROSE: 290 gm LIPIDS: 30 gm SODIUM CHLORIDE: 90 mEq POTASSIUM CHLORIDE: 30 mEq POTASSIUM PHOSPHATE: 13.6 mmol MAGNESIUM: 10 meq MULTIPLE VITAMIN: 5 ml TRACE ELEMENTS: 1 ml(s) TPN PLAN: K 3.4, Phos 2.1 - replaced with KPhos today. Will leave TPN the same as current bag has not fully infused yet. IV Lasix TID dc'd today. -BMP, Mag, Phos and TG in AM. R: Continue TPN. Will monitor electrolytes, glucose, and tolerance to TPN. ANAYA LYNN [facility], 06/01/21 [id number]
[2021-06-01] MEDS: PANTOPRAZOLE IV PUSH 40 MG VIAL. IVP SCH (11:48)
[2021-06-01] MEDS: CEFEPIME HCL IV Push 1 GM VIAL. IVP SCH ×2 (11:48→20:16)
[2021-06-01] MEDS: INSULIN GLARGINE SYRINGE. SQ SCH ×2 (11:49→20:17)
[2021-06-01] MEDS: POTASSIUM PHOS,M-BASIC-D-BASIC 10 MMOL in IV NORMAL SALINE 100ML 100 ML IV SCH ×2 (11:55→13:24)
--- NOTE | 2021-06-01 12:34 | PDOC ---
[employer] PROGRESS NOTE Date of Service DOS: DATE: 06/01/21 TIME: 12:32 Chief Complaint Chief Complaint Respiratory failure requiring intubation COVID-19 Acute ME A. fib SIRS Hypertension with hypertensive urgency Hyperlipidemia CKD Diabetes History of bilateral subclavian stenosis History of marijuana use Severe protein calorie malnutrition Trach placed on May 15 GI consulted for PEG evaluation --> patient with a lot of vomiting yesterday thus current NG tube to low intermittent suction Anemia secondary to acute blood loss, possible multiple lab draws and related to advanced CKD History of Present Illness History of Present Illness 06/01/2021 No acute events overnight. Patient saturating well on trach collar. Patient seen and examined bedside and on HD. Hemoglobin trended down from 8.4-7.3. Afebrile in the last 24 hours. Patient's chart, labs, images were reviewed and discussed with RN A total of 36 minutes of critical care time was spent in reviewing chart, labs, and images. Discussed with RN and SW. 05/31/2021 No acute events overnight. Patient saturating 100% on trach collar. Hemoglobin improved after 1 unit PRBC transfusion to 8.4. Patient is currently undergoing dialysis and his labs have been stable. Patient's chart, labs, images were reviewed and discussed with RN A total of 38 minutes of critical care time was spent in reviewing chart, labs, and images. Discussed with RN and SW. 05/30/2021 No acute events overnight. Patient doing well on trach collar. Hemoglobin decreased down to 6.7 pending 1 unit PRBC transfusion. Restarted on linezolid and Flagyl and cefepime. Pending PICC placement and central line IJ removal. Patient's chart, labs, images were reviewed and discussed with RN 05/29/2021 No acute events or night. Patient tolerating trach collar humidified. Saturating at 99%. Pending PICC line placement and IJ central line removal. Per ID. Possibly in not needing HD. Making urine adequately with Lasix as needed. Patient's chart, labs, images were reviewed and discussed with RN A total of 34 minutes of critical care time was spent in reviewing chart, labs, and images. Discussed with RN and SW. 05/28/2021 No acute events overnight. Patient doing well on trach with settings of 40% FiO2 and PEEP of 8. Pending PEG placement after ileus is resolved will defer this to GI for timing of PEG placement.. Also pending tunneled catheter placement for dialysis. Patient's chart, labs, images were reviewed and discussed with RN A total of 31 minutes of critical care time was spent in reviewing chart, labs, and images. Discussed with RN and SW. 05/27/2021: Afebrile. On vent with FiO2 40%, PEEP 5. Hemoglobin remains stable at 7.2 today; continue to trend. WBC 13.4. Kidney function appears to be stabilized. LTAC transfer is pending PEG tube placement. Off meropenem; will continue to monitor. Kidney function appears to be stable. Critical care time 30 minutes spent reviewing charts, reviewing labs, reviewing imaging, discussion with RN. 05/26/2021: Afebrile. On vent with FiO2 40%, PEEP 5. Hemoglobin 7.3 yesterday, and hemoglobin 7.2 today; continue to trend. Leukocytosis slightly improved, WBC 12.9 today. Has been accepted at [facility]; transfer pending, but will need PEG tube placement prior. Critical care time 30 minutes spent reviewing charts, reviewing labs, reviewing imaging, discussion with RN. 05/25/2021: Afebrile. On vent with FiO2 40%, PEEP 5. Hemoglobin 8.6 yesterday, hemoglobin 7.3 today. Reportedly had HD yesterday. Continue IV antibiotics, per ID; WBC possibly reactive to ileus. Has been accepted at [facility]; transfer pending, but will need PEG tube placement prior. Critical care time 30 minutes spent reviewing charts, reviewing labs, reviewing imaging, discussion with RN. 05/24/2021: No acute events overnight. Afebrile. NG tube output has decreased. Kidney function appears stable. Continue IV antibiotics, per ID. Patient has been accepted to [facility], pending insurance authorization. Critical care time 30 minutes spent reviewing charts, reviewing labs, reviewing imaging, discussion with RN. 05/23/2021: Afebrile. On vent with FiO2 40%, PEEP 5. NG tube for 635 mL out overnight. Continue NG tube to suction. HD per nephrology. Continue IV antibiotics, per ID. Critical care time 30 minutes spent reviewing charts, reviewing labs, reviewing imaging, discussion with RN. 05/22/2021: Afebrile. On vent with FiO2 40%, PEEP 5. Continues to have excessive NG output. Continue NG tube to suction for now; PEG on hold for now. Continue hemodialysis, per nephrology. Continue IV antibiotics, per ID. Social work helping with discharge planning to LTACH likely in the near future after PEG is placed. Critical care time 30 minutes spent reviewing charts, reviewing labs, reviewing imaging, discussion with RN. 05/21/2021: Afebrile, no acute events overnight. Remains on vent, FiO2 40%, PEEP 5. S/P tracheostomy on 05/15/2021. KUB on 05/19/2021 consistent with ileus. Per GI, continue NG tube to suction and parenteral nutrition for now. Continue IV antibiotics, per ID. Continue hemodialysis, per nephrology. Continue supportive care. Critical care time 30 minutes spent reviewing charts, reviewing imaging, reviewing labs, and discussed with RN. 05/20/21 Patient seen and examined at bedside. Again had multiple bouts of vomiting yes terday. GI continuing to follow for PEG evaluation although on hold right now due to persistent vomiting. Leukocytosis does persist but patient afebrile. Plan of care discussed with bedside RN 05/19/21 Patient seen and examined at bedside. Apparently had a fair bit of vomiting overnight. GI following for PEG evaluation. Otherwise patient remained stable. Plan of care discussed with bedside nurse. 05/18/21 Patient seen and examined at bedside. Attempting to increase tube feeds, GI consulted for PEG evaluation. Otherwise no major clinical changes. Continue to wean sedation. Plan of care discussed with bedside nurse. 05/17/21 Patient seen and examined at bedside. Attempting to wean sedation. Patient with some diarrhea. Per infectious disease will give erythromycin eye ointment for eye lesions. Nephro and pulm also following. Continue sedation weaning, plan of care discussed with bedside nurse. 05/16/21 Patient seen and examined at bedside. Underwent tracheostomy yesterday today tolerated well. When seen this morning patient is still notably sedated respiratory status is stable. Continue antibiotics and supportive measures. Plan of care discussed with bedside nurse. Attempt to wean sedation. 05/15/21 Patient seen and examined at bedside Remains intubated and sedated planning for tracheostomy today Continue current respiratory support; continue antibiotics, continue sedation Follow recommendations of pulmonary, renal, and infectious disease Plan of care discussed with bedside nurse Will follow up with patient after surgery today 05/14/21 Patient seen and examined at bedside Remains intubated and sedated planning for tracheostomy tomorrow Continue current respiratory support; continue antibiotics, continue sedation Follow recommendations of pulmonary, renal, and infectious disease Plan of care discussed with bedside nurse 05/13/2021 did not tolerate sedation vacation 05/11/2021, profoundly hypertensive ABG/CXR--changes as needed Continue iv cefepime , add zyvox, sputum culture VENT %, 5 of PEEP Mild pulmonary edema with new small right pleural effusion and basilar opacities now on cardene gtt prn Patient seen and examined in the [facility] [address] ICU remains mechanically ventilated ILDA on CKD - ATN 2/2 sepsis/ Hypotension,UOP good,on IV Lasix ; requiring dialysis, Sedated with propofol Dex and fentanyl Chart reviewed Discussed with RN He remains critically ill intubated/sedated cont cardene gtt not able to tolerate PS trial 05/06/21 Change central line and send cath tip for cultures. 05-09 C. difficile PCR ADELSO AVILA MD ORDERED: BCULT Procedure Result BLOOD CULTURE Final NO GROWTH AFTER 5 DAYS FISHMANJONES DA SILVA MD, CHRISTOPHER S MD BLOOD CULTURE Preliminary NO GROWTH AFTER 4 DAYS 37 min cc time 05/12/2021 Continue iv cefepime , add zyvox, sputum culture VENT [id number]%, 5 of PEEP Mild pulmonary edema with new small right pleural effusion and basilar opacities now on cardene gtt prn Patient seen and examined in the [place] [facility] [address] ICU remains mechanically ventilated ILDA on CKD - ATN 2/2 sepsis/ Hypotension,UOP good,on IV Lasix ; requiring dialysis, Sedated with propofol Dex and fentanyl Chart reviewed Discussed with RN He remains critically ill intubated/sedated cont cardene gtt not able to tolerate PS trial 05/06/21 Change central line and send cath tip for cultures. 05-09 C. difficile PCR JONES FISHMAN MD, CHRISTOPHER S MD SISILLO, SABATO MD ORDERED: BCULT Procedure Result BLOOD CULTURE Preliminary NO GROWTH AFTER 2 DAYS BLOOD CULTURE Preliminary NO GROWTH AFTER 4 DAYS 33 min cc time 05/11/2021 Continue iv cefepime , add zyvox, sputum culture VENT %, 5 of PEEP Mild pulmonary edema with new small right pleural effusion and basilar opacities now on cardene gtt prn Patient seen and examined in the [facility] [address] ICU remains mechanically ventilated ILDA on CKD - ATN 2/2 sepsis/ Hypotension,UOP good,on IV Lasix ; requiring dialysis, Sedated with propofol Dex and fentanyl Chart reviewed Discussed with RN He remains critically ill intubated/sedated cont cardene gtt not able to tolerate PS trial 05/06/21 Change central line and send cath tip for cultures. 05-09 C. difficile PCR JONES FISHMAN MD,ADELSO DASILVA MD, MD ORDERED: BCULT Procedure Result BLOOD CULTURE Preliminary NO GROWTH AFTER 2 DAYS BLOOD CULTURE Preliminary NO GROWTH AFTER 4 DAYS 36 min cc time 05/10/2021 VENT [id number]%, 5 of PEEP Mild pulmonary edema with new small right pleural effusion and basilar opacities now on cardene gtt prn Patient seen and examined in the [facility] [address] ICU remains mechanically ventilated ILDA on CKD - ATN 2/2 sepsis/ Hypotension,UOP good,on IV Lasix ; requiring dialysis, Sedated with propofol Dex and fentanyl Chart reviewed Discussed with RN He remains critically ill intubated/sedated cont cardene gtt not able to tolerate PS trial 05/06/21 Change central line and send cath tip for cultures. 05-09 C. difficile PCR JONES FISHMAN MD,BRIAN AVILA,ADELSO POTTER ORDERED: BCULT Procedure Result BLOOD CULTURE Preliminary NO GROWTH AFTER 2 DAYS BLOOD CULTURE Preliminary NO GROWTH AFTER 4 DAYS 33 min cc time 05/09/2021 VENT [id number]%, 5 of PEEP Mild pulmonary edema with new small right pleural effusion and basilar opacities now on cardene gtt prn Patient seen and examined in the [place] [address] ICU remains mechanically ventilated ILDA on CKD - ATN 2/2 sepsis/ Hypotension,UOP good,on IV Lasix ; requiring dialysis, Sedated with propofol Dex and fentanyl Chart reviewed Discussed with RN He remains critically ill intubated/sedated cont cardene gtt not able to tolerate PS trial 05/06/21 Change central line and send cath tip for cultures. 05-09 C. difficile PCR JONES FISHMAN MD, CHRISTOPHER S MD SISILLO, SABATO MD ORDERED: BCULT Procedure Result BLOOD CULTURE Preliminary NO GROWTH AFTER 2 DAYS BLOOD CULTURE Preliminary NO GROWTH AFTER 4 DAYS 37 min cc time 05/08/2021 Currently on 40%, 5 of PEEP now on cardene gtt Patient seen and examined in the [facility] ICU remains mechanically ventilated ILDA on CKD - ATN 2/2 sepsis/ Hypotension,UOP good,on IV Lasix ; requiring dialysis, AC/20/500/40 percent with 5 of PEEP Sedated with propofol Dex and fentanyl Chart reviewed Discussed with RN He remains critically ill intubated/sedated cont cardene gtt not able to tolerate PS trial 05/06/21 JONES FISHMAN MD, CHRISTOPHER S MD SISILLO, SABATO MD ORDERED: BCULT Procedure Result BLOOD CULTURE Preliminary NO GROWTH AFTER 2 DAYS BLOOD CULTURE Preliminary NO GROWTH AFTER 4 DAYS 33 min cc time 05/07/2021 Patient seen and examined in the [facility] [address] ICU He remains mechanically ventilated ILDA on CKD - ATN 2/2 sepsis/ Hypotension,UOP good,on IV Lasix ; requiring dialysis, AC/20/500/40 percent with 5 of PEEP Sedated with propofol Dex and fentanyl Chart reviewed Discussed with RN He remains critically ill intubated/sedated cont cardene gtt not able to tolerate PS trial 05/06/21 JONES FISHMAN MD,ADELSO DASILVA MD, MD ORDERED: BCULT --- --------- Procedure Result BLOOD CULTURE Preliminary NO GROWTH AFTER 2 DAYS 36 min cc time 05/06/2021 Patient seen and examined in the [facility] [address] ICU He remains mechanically ventilated AC/20/500/40 percent with 5 of PEEP Sedated with propofol Dex and fentanyl Chart reviewed Discussed with RN He remains critically ill 05/05/2020 Patient seen and examined in the [facility] [address] ICU He remains on the vent AC/20/500/40 percent with 5 of PEEP Discussed with RN Chart reviewed Has SCDs in place Nieves to bedside drainage He remains critically ill 05/04/2021 Patient seen and examined in the [facility] [address] ICU Still intubated Sedated with propofol and fentanyl AC/20/500/70 percent with 5 of PEEP On dialysis currently Has SCDs in Nieves to bedside drainage Discussed with RN Chart reviewed 05/03/2021 Patient seen and examined in the [facility] [address] ICU He is still intubated AC/20/500/70 percent with 5 of PEEP Has SCDs in place Nieves to bedside drainage Sedated with fentanyl Versed and propofol Discussed are Chart reviewed Remains critically ill 05/02/2021 Patient seen and examined in the [facility] [address] ICU He is sedated with propofol fentanyl and Versed Ventilator settings as follow AC/20/500/40 percent with 5 of PEEP Has Nieves to bedside drainage Chart reviewed Discussed with RN He remains critically ill 05/01/2021 Patient seen and examined in the [facility] [address] ICU He is still intubated AC/20/500/40 percent with 5 of PEEP In A. fib Sedated with propofol fentanyl and Versed Has a heparin drip Missy with RN Chart reviewed He remains critically 04/30/2020 Patient seen and examined in the [facility] [address] ICU He remains on the vent AC/20/500/40 5% with 5 PEEP Currently on dialysis Has OG feeds running Has a Nieves to bedside drainage Sedated with propofol and fentanyl Reviewed chart Discussed with RN He remains critically ill Mr Cunha is a 75 yo male w/ PMHx CAD, HTN, Hyperlipidemia, subclavian steel syndrome, subclavian stenosis s/p left subclavian sent placement complicated by retroperitoneal hematoma s/p evacuation in 08/2015), asthma, BART, CKD, DM2 who presented from home with home health care noted that he was short of breath and valverde with O2 saturations less than 89% as low as 84% not improved with nasal cannulated oxygen placed on CPAP and brought to ED for further care. He was just discharged from the hospital a week ago on April 19, 2021 for abdominal pain and was going for further cardiac testing with outpatient stress testing scheduled on May 28, 2021. Had echocardiogram April 17, 2021 with normal-appearing EF with moderate concentric LVH no significant valvular abnormalities. WBC 20, Hb 10.7, platelets 268, NA 140, K3.8, BUN 21, CR 2.9, glucose 162, albumin 3, troponin I 1.372, NT proBNP 33,318. EKG appears sinus tachycardia rate of 105 bpm with multiple PACs small ST depre ssions in lead II and V5. TWI in V6. Chest radiograph with diffuse interstitial and alveolar opacities and ET tube 5.8 cm above the leilani. Due to worsening respiratory status ED physician elected to intubate patient. Seen postintubation. Blood pressure little low after propofol bolus, but improved. Significant white frothy sputum per ET tube. Admitted to ICU for further care 04/29/2021: Afebrile, remains on vent at FiO2 45%, PEEP 5. WBC 20.4. Hemodialysis per nephrology. We will continue treatment with empiric antibiotics, remdesivir, and steroids. Continue heparin infusion and supportive care. Critical care time 30 minutes reviewing chart, review labs, review imaging, discussion with RN. 04/28/2021: Afebrile. FiO2 50%, PEEP 5. Nontunneled HD catheter placed yesterday due to worsening kidney function; eGFR 16 (CKD4). Chest x-ray showed unchanged interstitial opacities. Continue empiric antibiotics, steroids, and remdesivir. Continue heparin infusion, and continue to follow cardiology recommendations on new diagnosis of A. fib. Critical care time 30 minutes reviewing chart, review labs, review imaging, discussion with RN. 04/27/2021: Afebrile. On vent with FiO2 50%, PEEP 5. Troponin 2.8 yesterday; probable type II, demand ischemia. New onset A. fib. Continue heparin drip and as needed digoxin, per cardiology. Continue treatment with remdesivir, steroids, and prophylactic antibiotics. CBG 323 this morning; will add basal insulin. Critical care 30 minutes spent reviewing labs, reviewing imaging, reviewing charts, and discussion with RN. 04/26/2021: COVID-19 positive. Febrile overnight that was managed with cooling blankets. On vent with FiO2 50%, PEEP 5. Per cardiology, elevated troponins likely secondary to demand ischemia; continue heparin drip per cardiology. Maintain fluid balance and avoid nephrotoxins. Continue treatment with remdesivir, steroids, and prophylactic antibiotics. 30 minutes critical care time spent reviewing charts, reviewing labs, reviewing imaging, and discussion with RN. 04/25/2021: On vent FiO2 50, PEEP 5. Febrile, T-max 103.3. Patient was initiated on cooling blankets. Procalcitonin 0.13. Continue coverage for hospital-acquired pneumonia with cefepime. MRSA PCR pending. Critical care time 30 minutes spent reviewing charts, reviewing labs, review of imaging, discussion with RN. Vitals/I&O Vitals/I&O: Vital Signs Date Time Temp Pulse Resp B/P (MAP) Pulse Ox O2 Delivery O2 Flow Rate FiO2 06/01/21 12:00 Mechanical Ventilator 06/01/21 12:00 98.8 56 22 138/63 (88) 100 98.8 I & O 05/31/21 05/31/21 06/01/21 15:00 23:00 07:00 Intake Total 650 ml 1180 ml 1559 ml Output Total 275 ml 800 ml 330 ml Balance 375 ml 380 ml 1229 ml Physical Exam Physical Exam: GENERAL: Well-developed and well-nourished male, sedated HEENT: Normocephalic, atraumatic, redness and erythema of both eyes improved, NG tube present NECK: right dialysis catheter present clean,central line changed ( 05/11) Trach + HEART: S1, S2. LUNGS: Decreased breath sounds. ABDOMEN: Less distended, bowel sounds present GENITOURINARY: Nieves in place. EXTREMITIES: Edema present. DERMATOLOGIC: Warm, dry, no generalized rash. NEUROLOGIC: Opens eyes PICC line clean General: No acute distress, severe distress, Other (Alert and awake, trach collar site is intact without any infection) Heart: Regular rate, Normal S1, Normal S2 Lungs: Crackles Abdomen: Normal bowel sounds, Other (ND) Extremities: No clubbing, No cyanosis, Other (Lower extremity edema) Skin: No rashes, No breakdown, No significant lesion Labs Labs: Laboratory Tests Test 05/31/21 18:09 05/31/21 23:47 06/01/21 05:44 06/01/21 05:45 Glucose (Fingerstick) 243 mg/dL (70-99) 224 mg/dL (70-99) 137 mg/dL (70-99) White Blood Count 16.5 x10^3/uL (4.0-11.0) Red Blood Count 2.64 x10^6/uL (4.30-5.70) Hemoglobin 7.3 g/dL (13.0-17.5) Hematocrit 22.4 % (39.0-53.0) Mean Corpuscular Volume 85 fL (79-100) Mean Corpuscular Hemoglobin 28 pg (25-35) Mean Corpuscular Hemoglobin Concent 33 g/dL (31-37) Red Cell Distribution Width 17.9 % (11.5-14.5) Platelet Count 333 x10^3/uL (140-400) Sodium Level 140 mmol/L (136-145) Potassium Level 3.4 mmol/L (3.5-5.1) Chloride Level 105 mmol/L (98-107) Carbon Dioxide Level 27 mmol/L (21-32) Anion Gap 8 (6-14) Blood Urea Nitrogen 28 mg/dL (8-26) Creatinine 1.9 mg/dL (0.7-1.3) Estimated GFR (Cockcroft-Gault) 42.1 Glucose Level 139 mg/dL (70-99) Calcium Level 8.3 mg/dL (8.5-10.1) Phosphorus Level 2.1 mg/dL (2.6-4.7) Magnesium Level 1.8 mg/dL (1.8-2.4) Test 06/01/21 11:39 Glucose (Fingerstick) 117 mg/dL (70-99) Assessment and Plan Assessmemt and Plan Problems Medical Problems: (1) Elevated troponin Status: Acute (2) Person under investigation for COVID-19 Status: Acute (3) Pulmonary edema Status: Acute Comment Review of Relevant I have reviewed the following items juanita (where applicable) has been applied. Medications: Current Medications Medications (Trade) Dose Ordered Sig/Jodie Route PRN Reason Start Time Stop Time Status Last Admin Dose Admin Sodium Chloride 90 meq/Potassium Chloride 30 meq/ Potassium Phosphate 13.6 mmol/Magnesium Sulfate 10 meq/ Multivitamins 5 ml/Zinc/Copper/ Manganese/ Selenium 1 ml/ Total Parenteral Nutrition/Amino Acids/Dextrose/ Fat Emulsion Intravenous 1,200 ml @ 50 mls/hr TPN CONT IV 05/31/21 22:00 06/01/21 21:59 05/31/21 21:23 Albumin Human 100 ml @ 100 mls/hr 1X PRN PRN IV Hypotension 06/01/21 08:00 06/01/21 13:59 06/01/21 09:30 Potassium Phosphate 10 mmol/ Sodium Chloride 103.3333 ml @ 51.667 m... Q2H IV 06/01/21 12:00 06/01/21 15:59 06/01/21 11:55 Justifications for Admission General Conditions Altered mental status?: Yes Justification of admission: Patient has tachycardia (> 100 beats per minute) or hypotension (SBP < 90 mm Hg) leading to inadequate systemic perfusion as indicated by severe/persistent altered mental status. Other Justification HUY WEBB MD Jun 01, 2021 12:34
--- NOTE | 2021-06-01 12:37 | NUR ---
Called patient's granddaughter to obtain consent for tunnelled dialysis catheter and tunnelled power line, explained need for it and also risks, the granddaughter conversed with the other granddaughter, decided to not place tunnelled lines, will re-evaluate next week when the other granddaughter gets in town. Notified Dr. Mcclelland.
--- NOTE | 2021-06-01 13:07 | NUR ---
SS following up with discharge planning. SS reviewed pt chart and discussed with pt RN. Pt is currently on the vent at 40%. COVID19 recovered. NG in place. TPN. Currently awaiting ileus to resolve. Pt on Fentanyl and Precedex. Hemodialysis.. Pt on IV Cefepime and IV Zyvox. Pt accepted at [facility], ; fax [phone], pending insurance approval. Per [facility], ilieus needs to be improved and pt needs to be on less FI02 prior to authorizing. SS will continue to follow for discharge planning.
[2021-06-01] MEDS: MONTELUKAST SODIUM 10 MG TABLET. PO SCH (20:17)
[2021-06-01] MEDS: ATORVASTATIN CALCIUM 40 MG TABLET. PO SCH (20:17)
[2021-06-01] MEDS ORDERED: [UNRECOGNIZED DRUG - OTHER] IV SCH (22:00)
[2021-06-01] MEDS ORDERED: AMINO ACID IV SCH (22:00)
[2021-06-01] MEDS ORDERED: DEXTROSE 70% IV SCH (22:00)
[2021-06-01] MEDS ORDERED: TOTAL PARENTERAL NUTRITION IV SCH (22:00)
[2021-06-02] VITALS (24 sets, daily range): BP systolic 95–189; BP diastolic 47–97
[2021-06-02] MEDS: DEXMEDETOMIDINE 400 MCG in IV NORMAL SALINE 100ML 96 ML IV PRN ×6 (00:43→19:52)
[2021-06-02] MEDS: METOPROLOL IV PUSH 5 MG/5 ML VIAL. IVP SCH ×4 (05:51→23:45)
[2021-06-02] MEDS: INSULIN LISPRO 300 UNITS/3 ML VIAL. SQ SCH ×5 (06:05→23:46)
[2021-06-02 06:34] LABS: CALCIUM 8.1 mg/dL (8.5-10.1); CREATININE 1.9 mg/dL (0.7-1.3); GFR 42.1; MAGNESIUM 1.7 mg/dL (1.8-2.4); PHOSPHORUS 2.6 mg/dL (2.6-4.7); POTASSIUM 3.6 mmol/L (3.5-5.1)
--- NOTE | 2021-06-02 07:08 | PDOC ---
PULMONARY PROGRESS NOTES DATE: 06/02/21 TIME: 07:05 Subjective on assist control mode, peep 5 fio2 40% tachypneac ileus tpn sedated on precedex fentanlyl had hd past 3 days no arrhythmias overnight Vitals Vital Signs Date Time Temp Pulse Resp B/P (MAP) Pulse Ox O2 Delivery O2 Flow Rate FiO2 06/02/21 06:00 91 20 109/78 (88) 99 Ventilator 06/02/21 04:00 100.3 100.3 Comments Tracheostomy ros unable to obtain HEENT: Other (Trachea midline) Lungs: Crackles Cardiovascular: S1, S2 Abdomen: Soft Extremities: No Edema Skin: Warm Labs Laboratory Tests Test 05/31/21 12:23 05/31/21 18:09 05/31/21 23:47 06/01/21 05:44 Glucose (Fingerstick) 222 mg/dL (70-99) 243 mg/dL (70-99) 224 mg/dL (70-99) 137 mg/dL (70-99) Test 06/01/21 05:45 06/01/21 11:39 06/01/21 17:21 06/01/21 23:58 White Blood Count 16.5 x10^3/uL (4.0-11.0) Red Blood Count 2.64 x10^6/uL (4.30-5.70) Hemoglobin 7.3 g/dL (13.0-17.5) Hematocrit 22.4 % (39.0-53.0) Mean Corpuscular Volume 85 fL (79-100) Mean Corpuscular Hemoglobin 28 pg (25-35) Mean Corpuscular Hemoglobin Concent 33 g/dL (31-37) Red Cell Distribution Width 17.9 % (11.5-14.5) Platelet Count 333 x10^3/uL (140-400) Sodium Level 140 mmol/L (136-145) Potassium Level 3.4 mmol/L (3.5-5.1) Chloride Level 105 mmol/L (98-107) Carbon Dioxide Level 27 mmol/L (21-32) Anion Gap 8 (6-14) Blood Urea Nitrogen 28 mg/dL (8-26) Creatinine 1.9 mg/dL (0.7-1.3) Estimated GFR (Cockcroft-Gault) 42.1 Glucose Level 139 mg/dL (70-99) Calcium Level 8.3 mg/dL (8.5-10.1) Phosphorus Level 2.1 mg/dL (2.6-4.7) Magnesium Level 1.8 mg/dL (1.8-2.4) Glucose (Fingerstick) 117 mg/dL (70-99) 185 mg/dL (70-99) 203 mg/dL (70-99) Test 06/02/21 05:57 06/02/21 06:00 Glucose (Fingerstick) 165 mg/dL (70-99) Sodium Level 139 mmol/L (136-145) Potassium Level 3.6 mmol/L (3.5-5.1) Chloride Level 104 mmol/L (98-107) Carbon Dioxide Level 28 mmol/L (21-32) Anion Gap 7 (6-14) Blood Urea Nitrogen 27 mg/dL (8-26) Creatinine 1.9 mg/dL (0.7-1.3) Estimated GFR (Cockcroft-Gault) 42.1 Glucose Level 161 mg/dL (70-99) Calcium Level 8.1 mg/dL (8.5-10.1) Phosphorus Level 2.6 mg/dL (2.6-4.7) Magnesium Level 1.7 mg/dL (1.8-2.4) Triglycerides Level 88 mg/dL (0-150) Laboratory Tests Test 06/01/21 11:39 06/01/21 17:21 06/01/21 23:58 06/02/21 05:57 Glucose (Fingerstick) 117 mg/dL (70-99) 185 mg/dL (70-99) 203 mg/dL (70-99) 165 mg/dL (70-99) Test 06/02/21 06:00 Sodium Level 139 mmol/L (136-145) Potassium Level 3.6 mmol/L (3.5-5.1) Chloride Level 104 mmol/L (98-107) Carbon Dioxide Level 28 mmol/L (21-32) Anion Gap 7 (6-14) Blood Urea Nitrogen 27 mg/dL (8-26) Creatinine 1.9 mg/dL (0.7-1.3) Estimated GFR (Cockcroft-Gault) 42.1 Glucose Level 161 mg/dL (70-99) Calcium Level 8.1 mg/dL (8.5-10.1) Phosphorus Level 2.6 mg/dL (2.6-4.7) Magnesium Level 1.7 mg/dL (1.8-2.4) Triglycerides Level 88 mg/dL (0-150) Medications Active Scripts Medications Dose Route/Sig Max Daily Dose Days Date Category Glyburide 2.5 Mg Tablet 1 Tab PO DAILY 04/19/21 Rx Polyethylene Glycol 3350 17 Gm Powd.pack 17 Gm PO DAILY 04/19/21 Rx Dok (Docusate Sodium) 100 Mg Capsule 100 Mg PO PRN DAILY PRN 04/19/21 Rx Bisacodyl 5 Mg Tablet.dr 5 Mg PO PRN DAILY PRN 04/19/21 Rx Acetaminophen 325 Mg Tablet 650 Mg PO PRN Q4HRS PRN 04/19/21 Rx Aspirin Ec (Aspirin) 81 Mg Tablet.dr 81 Mg PO DAILYWBKFT 04/19/21 Rx Hydralazine Hcl 25 Mg Tablet 25 Mg PO QID 04/19/21 Rx Fenofibrate 54 Mg Tablet 1 Tab PO DAILY 04/17/21 Reported Potassium Chloride (Potassium Chloride) 20 Meq Tablet.er 20 Meq PO DAILY 04/17/21 Reported Coreg (Carvedilol) 12.5 Mg Tablet 37.5 Mg PO BIDWMEALS 04/17/21 Reported Rosuvastatin Calcium 40 Mg Tablet 40 Mg PO QHS 04/17/21 Reported Gabapentin (Gabapentin) 100 Mg Capsule 200 Mg PO BID 04/17/21 Reported Montelukast Sodium Tablet (Montelukast Sodium) 10 Mg Tablet 10 Mg PO HS 04/17/21 Reported Protonix (Pantoprazole Sodium) 20 Mg Tablet.dr 2 Tab PO DAILY 04/17/21 Reported Amlodipine Besylate 5 Mg Tablet 5 Mg PO DAILY 04/17/21 Reported Furosemide 40 Mg Tablet 1 Tab PO DAILY 04/17/21 Reported Proair Hfa Inhaler (Albuterol Sulfate) 8.5 Gm Hfa.aer.ad 2 Puff IH PRN Q4-6HRS PRN 04/16/21 Reported Advair 100-50 Diskus (Fluticasone/Salmeterol) 1 Each Disk.w.dev 1 Puff IH BID 04/16/21 Reported Comments Impression . IMPRESSION: 1. Acute hypoxic respiratory failure, multifactorial/COVID-19 viral pneumonia/ARDS, ongoing, intubated 04/25/2021, now status post tracheostomy 05/15/[address] chest with bilateral diffuse interstitial infiltrates without any significant pleural effusion 3. Leukocytosis, sepsis--improved 4. Non-ST segment elevation NE 5. History of tobacco use, suspect COPD, unknown FEV1 6. Chronic kidney disease.== HD as needed per renal 7. Metabolic acidosis multifactorial 8. Abnormal chest x-ray 9. Hypoglycemia, continue to monitor--- resolved 10. Hypotension, suspect volume deficit,/possible sepsis--- resolved 11. Fever--improved 12. Anemia--improved 13. Atrial fibrillation with rapid ventricular response, currently rate controlled 14. Ileus Plan . Updated 06/02/21 Continue current ventilatory support, /40/5 weaning as tolerated Continue Precedex fentanyl tachypneac will add propofol It has been difficult to wean the patient due to nonpulmonary issues such as arrhythmias, worsening hypertension and tachycardia and current ileus. Monitor HGB Follow GI recs-- ileus, PEG tube on hold, Follow nephrology recs-- hemodialysis per nephro Follow infectious disease recommendations for ABX Continue TPN for nutritional support DVT/GI PPX: sq heparin-- on hold D/W RN and RT Pt. is DNR Updated 06/01/21 Continue current ventilatory support, 500/40/5 Continue Precedex for sedation It has been difficult to wean the patient due to nonpulmonary issues such as arrhythmias, worsening hypertension and tachycardia and current ileus. Monitor HGB Follow GI recs-- ileus, PEG tube on hold, Follow nephrology recs--currently on hemodialysis Follow infectious disease recommendations for ABX Continue TPN for nutritional support DVT/GI PPX: sq heparin-- on hold D/W RN and RT Pt. is DNR CC time 30 minutes Updated 05/31/21 Continue current ventilatory support, 500/40/5 Continue Precedex for sedation Monitor HGB Follow GI recs-- ileus, PEG tube on hold, nursing reports 75 cc of NG output Follow nephrology recs--currently on hemodialysis Follow infectious disease recommendations for ABX Continue TPN for nutritional support DVT/GI PPX: sq heparin-- on hold D/W RN and RT Pt. is DNR CC time 30 minutes SELENE FERRO MD Jun 02, 2021 07:08
--- NOTE | 2021-06-02 07:15 | PDOC ---
Infectious Disease Note Subjective: Subjective Pt remains vent dependent Tmax 100.3 Undergoing dialysis session Discussed with nursing staff Vital Signs: Vital Signs Vital Signs Date Time Temp Pulse Resp B/P (MAP) Pulse Ox O2 Delivery O2 Flow Rate FiO2 06/02/21 06:00 91 20 109/78 (88) 99 Ventilator 06/02/21 04:00 100.3 100.3 Physical Exam: PHYSICAL EXAM GENERAL: Well-developed and well-nourished male, sedated HEENT: Normocephalic, atraumatic, redness and erythema of both eyes improved, NG tube present NECK: right dialysis catheter present clean,central line changed ( 05/11) Trach + HEART: S1, S2. LUNGS: Decreased breath sounds. ABDOMEN: Less distended, bowel sounds present GENITOURINARY: Nieves in place. EXTREMITIES: Edema present. DERMATOLOGIC: Warm, dry, no generalized rash. NEUROLOGIC: Opens eyes PICC line clean Medications: Inpatient Meds: Medications reviewed. Labs: Lab Laboratory Tests Test 06/01/21 11:39 06/01/21 17:21 06/01/21 23:58 06/02/21 05:57 Glucose (Fingerstick) 117 mg/dL (70-99) 185 mg/dL (70-99) 203 mg/dL (70-99) 165 mg/dL (70-99) Test 06/02/21 06:00 Sodium Level 139 mmol/L (136-145) Potassium Level 3.6 mmol/L (3.5-5.1) Chloride Level 104 mmol/L (98-107) Carbon Dioxide Level 28 mmol/L (21-32) Anion Gap 7 (6-14) Blood Urea Nitrogen 27 mg/dL (8-26) Creatinine 1.9 mg/dL (0.7-1.3) Estimated GFR (Cockcroft-Gault) 42.1 Glucose Level 161 mg/dL (70-99) Calcium Level 8.1 mg/dL (8.5-10.1) Phosphorus Level 2.6 mg/dL (2.6-4.7) Magnesium Level 1.7 mg/dL (1.8-2.4) Triglycerides Level 88 mg/dL (0-150) Objective: Assessment: Fungemia May 30, 2021 1. Febrile illnessresolved 2. Leukocytosis, was on steroids,ileus could contribute,improving 3. COVID-19 pneumonia. 4. Acute hypoxic respiratory failure status post intubation.Now S/P Trach 05/15 Pleural effusion 5. Congestive heart failure, acute on chronic. 6. Acute kidney injury on chronic kidney disease on hemodialysis. 7. Diabetes mellitus 2. 8. Atrial fibrillation. 9. Anemia. 10. Protein-calorie malnutrition. 11. Hypertention 12.Hyponatremia 13. Ileus, Bowel obstruction Peg TF on hold, OG to LIS 14.on PPN 15.Mild to Moderate Pleural effusion 16.Lt eye conjunctivitis resolved Plan: Plan of Care Continue cefepime and flagyl,zyvox 05/31 Start micafungin June 02 Monitor labs and cultures DC HDC/ Central line, send cath tip for culture RN will try to contact IR to be seen over the weekend Nieves gabe 05/30 C. difficile PCR negative Remains critically ill Continue supportive care Prognosis poor Discussed with nursing staff ALAYNA RIVERO MD Jun 02, 2021 07:15
[2021-06-02] MEDS: ASPIRIN CHEWABLE 81 MG TABLET. PO SCH (08:00)
--- NOTE | 2021-06-02 08:43 | PDOC ---
Renal-Progress Notes Subjective Notes Notes NO CHANGE IN THE PT APPEARS History of Present Illness Hx of present illness NEW FUNGAL INFECTION Vitals Vitals Vital Signs Date Time Temp Pulse Resp B/P (MAP) Pulse Ox O2 Delivery O2 Flow Rate FiO2 06/02/21 08:00 99 Ventilator 06/02/21 06:00 91 20 109/78 (88) 06/02/21 04:00 100.3 100.3 Weight Weight [ ] I.O. Intake and Output Intake and Output 06/02/21 07:00 Intake Total 3088.6666 ml Output Total 610 ml Balance 2478.6666 ml IV Total 3088.6666 ml Output Urine Total 260 ml Gastric Drainage Total 350 ml Labs Labs Laboratory Tests Test 06/01/21 11:39 06/01/21 17:21 06/01/21 23:58 06/02/21 05:57 Glucose (Fingerstick) 117 mg/dL (70-99) 185 mg/dL (70-99) 203 mg/dL (70-99) 165 mg/dL (70-99) Test 06/02/21 06:00 Sodium Level 139 mmol/L (136-145) Potassium Level 3.6 mmol/L (3.5-5.1) Chloride Level 104 mmol/L (98-107) Carbon Dioxide Level 28 mmol/L (21-32) Anion Gap 7 (6-14) Blood Urea Nitrogen 27 mg/dL (8-26) Creatinine 1.9 mg/dL (0.7-1.3) Estimated GFR (Cockcroft-Gault) 42.1 Glucose Level 161 mg/dL (70-99) Calcium Level 8.1 mg/dL (8.5-10.1) Phosphorus Level 2.6 mg/dL (2.6-4.7) Magnesium Level 1.7 mg/dL (1.8-2.4) Triglycerides Level 88 mg/dL (0-150) Micro Micro Microbiology 05/30/21 Gram Stain Evaluation - Final, Complete 05/30/21 Respiratory Culture - Final, Complete 05/30/21 Blood Culture - Preliminary, Resulted NO GROWTH AFTER 3 DAYS 05/04/21 Gram Stain - Final, Complete 05/04/21 Aerobic Culture - Final, Complete Review of Systems Constitutional: yes: unresponsive, other Physical Exam General Appearance: no apparent distress, other (ON THE VENT) Skin: warm, dry, edema Respiratory: decreased breath sounds Heart: S1S2 Abdomen: soft, N/T, distension, other Genitourinary: bladder flat, mooney catheter Extremities: pulses present, edema Neurology: other (sedated) Musculoskeletal: Other Assessment Assessment IMP NEW FUNGEMIA HYPONATREMIA-RESOLVED HYPOKALEMIA LOW PO4-CORRECTED LOW MAG [id number] UO BUT NO CLEARANCE CKD - SUSPECT STAGE 3 ACUTE HYPOXIC RESP FAILURE COVID 19 PNEUMONIA MET ACIDOSIS-BETTER LEUCOCYTOSIS ANEMIA S/P TRACH ANASARCA ILEUS PLAN RESP SUPPORT HD AGAIN TODAY UF ABOUT 4.0 LITERS AGAIN TODAY IF TOLERATED ANTIBIOTICS REPLACE MAG OFF IV LASIX NO TUNNELED HD LINE WILL HAVE HIS TEMP HD LINE REMOVED AFTER HD TODAY D/W ID CONT TPN PROMISE TRANSFER PENDING WILL FOLLOW JEANINE NEWTON MD Jun 02, 2021 08:43
[2021-06-02] MEDS ORDERED: MAGNESIUM SULFATE 2GM 50 ML IV ONE (08:45)
[2021-06-02] MEDS: NYSTATIN TOPICAL POWDER 15GM BOTTLE. TP SCH ×2 (09:07→20:18)
[2021-06-02] MEDS: PANTOPRAZOLE IV PUSH 40 MG VIAL. IVP SCH (09:07)
[2021-06-02] MEDS: PROPOFOL 100 ML IV PRN ×3 (09:36→19:52)
[2021-06-02] MEDS: CEFEPIME HCL IV Push 1 GM VIAL. IVP SCH ×2 (09:45→20:18)
[2021-06-02] MEDS: MICAFUNGIN 100 MG in IV DEXTROSE 5% 100ML 100 ML IV SCH (09:46)
[2021-06-02] MEDS: TPN PER PHARMACY MC PRN (11:43)
[2021-06-02] MEDS ORDERED: IV NORMAL SALINE 1000ML BAG 1,000 ML IV PRN ×2 (11:45)
[2021-06-02] MEDS ORDERED: DIALYSIS PATIENT. MC PRN (11:45)
[2021-06-02] MEDS ORDERED: ALBUMIN HUMAN 25% 200 ML IV PRN (11:45)
[2021-06-02] MEDS: INSULIN GLARGINE SYRINGE. SQ SCH ×2 (12:07→20:21)
--- NOTE | 2021-06-02 12:44 | NUR ---
Notified Dr. Mcclelland of positive blood cultures, discussed with Dr. Ariza, received the order to have IR place central line and then remove old central line and dialysis catheter and culture the tips of both. Consent given from granddaughter via telephone. Around 0830, patient had increasing agitation and restlessness causing his HR to become more tachycardic in the 120s-130s with frequent PACs and PVCs with runs of VT lasting 3-6 beats at a time. Received the order for propofol from Dr. Singer. Decreased precedex and increased propofol to keep patient's HR and blood pressure within normal limits.
--- NOTE | 2021-06-02 12:46 | PDOC ---
[employer] PROGRESS NOTE Date of Service DOS: DATE: 06/02/21 TIME: 12:44 Chief Complaint Chief Complaint Respiratory failure requiring intubation COVID-19 Acute [place] A. fib SIRS Hypertension with hypertensive urgency Hyperlipidemia CKD Diabetes History of bilateral subclavian stenosis History of marijuana use Severe protein calorie malnutrition Trach placed on May 15 GI consulted for PEG evaluation --> patient with a lot of vomiting yesterday thus current NG tube to low intermittent suction Anemia secondary to acute blood loss, possible multiple lab draws and related to advanced CKD Positive yeast on blood cultures History of Present Illness History of Present Illness 06/02/2021 No acute events overnight. Patient saturating 100% on trach collar. Patient did have a fever low-grade of 100.3. Yeast did grow on 1 of 4 bottles on blood cultures. Plan to remove central line and dialysis catheter. Family consideration for tunneled catheterization possibly hold. Micafungin was started per ID. Patient's chart, labs, images were reviewed and discussed with RN 06/01/2021 No acute events overnight. Patient saturating well on trach collar. Patient seen and examined bedside and on HD. Hemoglobin trended down from 8.4-7.3. Afebrile in the last 24 hours. Patient's chart, labs, images were reviewed and discussed with RN A total of 36 minutes of critical care time was spent in reviewing chart, labs, and images. Discussed with RN and SW. 05/31/2021 No acute events overnight. Patient saturating 100% on trach collar. Hemoglobin improved after 1 unit PRBC transfusion to 8.4. Patient is currently undergoing dialysis and his labs have been stable. Patient's chart, labs, images were reviewed and discussed with RN A total of 38 minutes of critical care time was spent in reviewing chart, labs, and images. Discussed with RN and SW. 05/30/2021 No acute events overnight. Patient doing well on trach collar. Hemoglobin decreased down to 6.7 pending 1 unit PRBC transfusion. Restarted on linezolid and Flagyl and cefepime. Pending PICC placement and central line IJ removal. Patient's chart, labs, images were reviewed and discussed with RN 05/29/2021 No acute events or night. Patient tolerating trach collar humidified. Saturating at 99%. Pending PICC line placement and IJ central line removal. Per ID. Possibly in not needing HD. Making urine adequately with Lasix as needed. Patient's chart, labs, images were reviewed and discussed with RN A total of 34 minutes of critical care time was spent in reviewing chart, labs, and images. Discussed with RN and SW. 05/28/2021 No acute events overnight. Patient doing well on trach with settings of 40% FiO2 and PEEP of 8. Pending PEG placement after ileus is resolved will defer this to GI for timing of PEG placement.. Also pending tunneled catheter placement for dialysis. Patient's chart, labs, images were reviewed and discussed with RN A total of 31 minutes of critical care time was spent in reviewing chart, labs, and images. Discussed with RN and SW. 05/27/2021: Afebrile. On vent with FiO2 40%, PEEP 5. Hemoglobin remains stable at 7.2 today; continue to trend. WBC 13.4. Kidney function appears to be stabilized. LTAC transfer is pending PEG tube placement. Off meropenem; will continue to monitor. Kidney function appears to be stable. Critical care time 30 minutes spent reviewing charts, reviewing labs, reviewing imaging, discussion with RN. 05/26/2021: Afebrile. On vent with FiO2 40%, PEEP 5. Hemoglobin 7.3 yesterday, and hemoglobin 7.2 today; continue to trend. Leukocytosis slightly improved, WBC 12.9 today. Has been accepted at [facility]; transfer pending, but will need PEG tube placement prior. Critical care time 30 minutes spent reviewing charts, reviewing labs, reviewing imaging, discussion with RN. 05/25/2021: Afebrile. On vent with FiO2 40%, PEEP 5. Hemoglobin 8.6 yesterday, hemoglobin 7.3 today. Reportedly had HD yesterday. Continue IV antibiotics, per ID; WBC possibly reactive to ileus. Has been accepted at [facility]; transfer pending, but will need PEG tube placement prior. Critical care time 30 minutes spent reviewing charts, reviewing labs, reviewing imaging, discussion with RN. 05/24/2021: No acute events overnight. Afebrile. NG tube output has decreased. Kidney function appears stable. Continue IV antibiotics, per ID. Patient has been accepted to [facility] hospital, pending insurance authorization. Critical care time 30 minutes spent reviewing charts, reviewing labs, reviewing imaging, discussion with RN. 05/23/2021: Afebrile. On vent with FiO2 40%, PEEP 5. NG tube for 635 mL out overnight. Continue NG tube to suction. HD per nephrology. Continue IV antibiotics, per ID. Critical care time 30 minutes spent reviewing charts, reviewing labs, reviewing imaging, discussion with RN. 05/22/2021: Afebrile. On vent with FiO2 40%, PEEP 5. Continues to have excessive NG output. Continue NG tube to suction for now; PEG on hold for now. Continue hemodialysis, per nephrology. Continue IV antibiotics, per ID. Social work helping with discharge planning to LTACH likely in the near future after PEG is placed. Critical care time 30 minutes spent reviewing charts, reviewing labs, reviewing imaging, discussion with RN. 05/21/2021: Afebrile, no acute events overnight. Remains on vent, FiO2 40%, PEEP 5. S/P tracheostomy on 05/15/2021. KUB on 05/19/2021 consistent with ileus. Per GI, continue NG tube to suction and parenteral nutrition for now. Continue IV antibiotics, per ID. Continue hemodialysis, per nephrology. Continue supportive care. Critical care time 30 minutes spent reviewing charts, reviewing imaging, reviewing labs, and discussed with RN. 05/20/21 Patient seen and examined at bedside. Again had multiple bouts of vomiting yesterday. GI continuing to follow for PEG evaluation although on hold right now due to persistent vomiting. Leukocytosis does persist but patient afebrile. Plan of care discussed with bedside RN 05/19/21 Patient seen and examined at bedside. Apparently had a fair bit of vomiting overnight. GI following for PEG evaluation. Otherwise patient remained stable. Plan of care discussed with bedside nurse. 05/18/21 Patient seen and examined at bedside. Attempting to increase tube feeds, GI consulted for PEG evaluation. Otherwise no major clinical changes. Continue to wean sedation. Plan of care discussed with bedside nurse. 05/17/21 Patient seen and examined at bedside. Attempting to wean sedation. Patient with some diarrhea. Per infectious disease will give erythromycin eye ointment for eye lesions. Nephro and pulm also following. Continue sedation weaning, plan of care discussed with bedside nurse. 05/16/21 Patient seen and examined at bedside. Underwent tracheostomy yesterday today tolerated well. When seen this morning patient is still notably sedated respiratory status is stable. Continue antibiotics and supportive measures. Plan of care discussed with bedside nurse. Attempt to wean sedation. 05/15/21 Patient seen and examined at bedside Remains intubated and sedated planning for tracheostomy today Continue current respiratory support; continue antibiotics, continue sedation Follow recommendations of pulmonary, renal, and infectious disease Plan of care discussed with bedside nurse Will follow up with patient after surgery today 05/14/21 Patient seen and examined at bedside Remains intubated and sedated planning for tracheostomy tomorrow Continue current respiratory support; continue antibiotics, continue sedation Follow recommendations of pulmonary, renal, and infectious disease Plan of care discussed with bedside nurse 05/13/2021 did not tolerate sedation vacation 05/11/2021, profoundly hypertensive ABG/CXR--changes as needed Continue iv cefepime , add zyvox, sputum culture VENT [id number]%, 5 of PEEP Mild pulmonary edema with new small right pleural effusion and basilar opacities now on cardene gtt prn Patient seen and examined in the [place] [address] ICU remains mechanically ventilated ILDA on CKD - ATN 2/2 sepsis/ Hypotension,UOP good,on IV Lasix ; requiring dialysis, Sedated with propofol Dex and fentanyl Chart reviewed Discussed with RN He remains critically ill intubated/sedated cont cardene gtt not able to tolerate PS trial 05/06/21 Change central line and send cath tip for cultures. 05-09 C. difficile PCR ADELSO AVILA MD ORDERED: BCULT -------- ---- Procedure Result BLOOD CULTURE Final NO GROWTH AFTER 5 DAYS JONES FISHMAN MD,BRIAN Roberson MD BLOOD CULTURE Preliminary NO GROWTH AFTER 4 DAYS 37 min cc time 05/12/2021 Continue iv cefepime , add zyvox, sputum culture VENT %, 5 of PEEP Mild pulmonary edema with new small right pleural effusion and basilar opacities now on cardene gtt prn Patient seen and examined in the [place] [address] ICU remains mechanically ventilated ILDA on CKD - ATN 2/2 sepsis/ Hypotension,UOP good,on IV Lasix ; requiring dialysis, Sedated with propofol Dex and fentanyl Chart reviewed Discussed with RN He remains critically ill intubated/sedated cont cardene gtt not able to tolerate PS trial 05/06/21 Change central line and send cath tip for cultures. 05-09 C. difficile PCR JONES FISHMAN MD, CHRISTOPHER S MD SISILLO, SABATO MD ORDERED: BCULT Procedure Result - BLOOD CULTURE Preliminary NO GROWTH AFTER 2 DAYS BLOOD CULTURE Preliminary NO GROWTH AFTER 4 DAYS 33 min cc time 05/11/2021 Continue iv cefepime , add zyvox, sputum culture VENT [id number]%, 5 of PEEP Mild pulmonary edema with new small right pleural effusion and basilar opacities now on cardene gtt prn Patient seen and examined in the [facility] remains mechanically ventilated ILDA on CKD - ATN 2/2 sepsis/ Hypotension,UOP good,on IV Lasix ; requiring dialysis, Sedated with propofol Dex and fentanyl Chart reviewed Discussed with RN He remains critically ill intubated/sedated cont cardene gtt not able to tolerate PS trial 05/06/21 Change central line and send cath tip for cultures. 05-09 C. difficile PCR JONES FISHMAN MD,ADELSO DASILVA MD, MD ORDERED: BCULT Procedure Result BLOOD CULTURE Preliminary NO GROWTH AFTER 2 DAYS BLOOD CULTURE Preliminary NO GROWTH AFTER 4 DAYS 36 min cc time 05/10/2021 VENT [id number]%, 5 of PEEP Mild pulmonary edema with new small right pleural effusion and basilar opacities now on cardene gtt prn Patient seen and examined in the [facility] ICU remains mechanically ventilated ILDA on CKD - ATN 2/2 sepsis/ Hypotension,UOP good,on IV Lasix ; requiring dialysis, Sedated with propofol Dex and fentanyl Chart reviewed Discussed with RN He remains critically ill intubated/sedated cont cardene gtt not able to tolerate PS trial 05/06/21 Change central line and send cath tip for cultures. 05-09 C. difficile PCR JONES FISHMAN MD,ADELSO DASILVA MD, MD ORDERED: BCULT Procedure Result BLOOD CULTURE Preliminary NO GROWTH AFTER 2 DAYS BLOOD CULTURE Preliminary NO GROWTH AFTER 4 DAYS 33 min cc time 05/09/2021 VENT [id number]%, 5 of PEEP Mild pulmonary edema with new small right pleural effusion and basilar opacities now on cardene gtt prn Patient seen and examined in the [place] [address] ICU remains mechanically ventilated ILDA on CKD - ATN 2/2 sepsis/ Hypotension,UOP good,on IV Lasix ; requiring dialysis, Sedated with propofol Dex and fentanyl Chart reviewed Discussed with RN He remains critically ill intubated/sedated cont cardene gtt not able to tolerate PS trial 05/06/21 Change central line and send cath tip for cultures. 05-09 C. difficile PCR JONES FISHMAN MD,ADELSO DASILVA MD, MD ORDERED: BCULT Procedure Result BLOOD CULTURE Preliminary NO GROWTH AFTER 2 DAYS BLOOD CULTURE Preliminary NO GROWTH AFTER 4 DAYS 37 min cc time 05/08/2021 Currently on 40%, 5 of PEEP now on cardene gtt Patient seen and examined in the [place] [address] ICU remains mechanically ventilated ILDA on CKD - ATN 2/2 sepsis/ Hypotension,UOP good,on IV Lasix ; requiring dialysis, AC/20/500/40 percent with 5 of PEEP Sedated with propofol Dex and fentanyl Chart reviewed Discussed with RN He remains critically ill intubated/sedated cont cardene gtt not able to tolerate PS trial 05/06/21 JONES FISHMAN MD, CHRISTOPHER S MD SISILLO, SABATO MD ORDERED: BCULT --------- --- Procedure Result BLOOD CULTURE Preliminary NO GROWTH AFTER 2 DAYS BLOOD CULTURE Preliminary NO GROWTH AFTER 4 DAYS 33 min cc time 05/07/2021 Patient seen and examined in the [place] [address] ICU He remains mechanically ventilated ILDA on CKD - ATN 2/2 sepsis/ Hypotension,UOP good,on IV Lasix ; requiring dialysis, AC/20/500/40 percent with 5 of PEEP Sedated with propofol Dex and fentanyl Chart reviewed Discussed with RN He remains critically ill intubated/sedated cont cardene gtt not able to tolerate PS trial 05/06/21 JONES FISHMAN MD,ADELSO DASILVA MD, MD ORDERED: BCULT Procedure Result BLOOD CULTURE Preliminary NO GROWTH AFTER 2 DAYS 36 min cc time 05/06/2021 Patient seen and examined in the [place] [address] ICU He remains mechanically ventilated AC/20/500/40 percent with 5 of PEEP Sedated with propofol Dex and fentanyl Chart reviewed Discussed with RN He remains critically ill 05/05/2020 Patient seen and examined in the [place] [address] ICU He remains on the vent AC/20/500/40 percent with 5 of PEEP Discussed with RN Chart reviewed Has SCDs in place Nieves to bedside drainage He remains critically ill 05/04/2021 Patient seen and examined in the [place] [address] ICU Still intubated Sedated with propofol and fentanyl AC/20/500/70 percent with 5 of PEEP On dialysis currently Has SCDs in Nieves to bedside drainage Discussed with RN Chart reviewed 05/03/2021 Patient seen and examined in the [place] [address] ICU He is still intubated AC/20/500/70 percent with 5 of PEEP Has SCDs in place Nieves to bedside drainage Sedated with fentanyl Versed and propofol Discussed are Chart reviewed Remains critically ill 05/02/2021 Patient seen and examined in the [place] [address] ICU He is sedated with propofol fentanyl and Versed Ventilator settings as follow AC/20/500/40 percent with 5 of PEEP Has Nieves to bedside drainage Chart reviewed Discussed with RN He remains critically ill 05/01/2021 Patient seen and examined in the [place] [address] ICU He is still intubated AC/20/500/40 percent with 5 of PEEP In A. fib Sedated with propofol fentanyl and Versed Has a heparin drip Missy with RN Chart reviewed He remains critically 04/30/2020 Patient seen and examined in the [place] [address] ICU He remains on the vent AC/20/500/40 5% with 5 PEEP Currently on dialysis Has OG feeds running Has a Nieves to bedside drainage Sedated with propofol and fentanyl Reviewed chart Discussed with RN He remains critically ill Mr Cunha is a 75 yo male w/ PMHx CAD, HTN, Hyperlipidemia, subclavian steel syndrome, subclavian stenosis s/p left subclavian sent placement complicated by retroperitoneal hematoma s/p evacuation in 08/2015), asthma, BART, CKD, DM2 who presented from home with home health care noted that he was short of breath and valverde with O2 saturations less than 89% as low as 84% not improved with nasal cannulated oxygen placed on CPAP and brought to ED for further care. He was just discharged from the hospital a week ago on April 19, 2021 for abdominal pain and was going for further cardiac testing with outpatient stress testing scheduled on May 28, 2021. Had echocardiogram April 17, 2021 with normal-appearing EF with moderate concentric LVH no significant valvular abnormalities. WBC 20, Hb 10.7, platelets 268, NA 140, K3.8, BUN 21, CR 2.9, glucose 162, albumin 3, troponin I 1.372, NT proBNP 33,318. EKG appears sinus tachycardia rate of 105 bpm with multiple PACs small ST depressions in lead II and V5. TWI in V6. Chest radiograph with diffuse interstitial and alveolar opacities and ET tube 5.8 cm above the leilani. Due to worsening respiratory status ED physician elected to intubate patient. Seen postintubation. Blood pressure little low after propofol bolus, but improved. Significant white frothy sputum per ET tube. Admitted to ICU for further care 04/29/2021: Afebrile, remains on vent at FiO2 45%, PEEP 5. WBC 20.4. Hemodialysis per nephrology. We will continue treatment with empiric antibiotics, remdesivir, and steroids. Continue heparin infusion and supportive care. Critical care time 30 minutes reviewing chart, review labs, review imaging, discussion with RN. 04/28/2021: Afebrile. FiO2 50%, PEEP 5. Nontunneled HD catheter placed yesterday due to worsening kidney function; eGFR 16 (CKD4). Chest x-ray showed unchanged interstitial opacities. Continue empiric antibiotics, steroids, and remdesivir. Continue heparin infusion, and continue to follow cardiology recommendations on new diagnosis of A. fib. Critical care time 30 minutes reviewing chart, review labs, review imaging, discussion with RN. 04/27/2021: Afebrile. On vent with FiO2 50%, PEEP 5. Troponin 2.8 yesterday; probable type II, demand ischemia. New onset A. fib. Continue heparin drip and as needed digoxin, per cardiology. Continue treatment with remdesivir, steroids, and prophylactic antibiotics. CBG 323 this morning; will add basal insulin. Critical care 30 minutes spent reviewing labs, reviewing imaging, reviewing charts, and discussion with RN. 04/26/2021: COVID-19 positive. Febrile overnight that was managed with cooling blankets. On vent with FiO2 50%, PEEP 5. Per cardiology, elevated troponins likely secondary to demand ischemia; continue heparin drip per cardiology. Maintain fluid balance and avoid nephrotoxins. Continue treatment with remdesivir, steroids, and prophylactic antibiotics. 30 minutes critical care time spent reviewing charts, reviewing labs, reviewing imaging, and discussion with RN. 04/25/2021: On vent FiO2 50, PEEP 5. Febrile, T-max 103.3. Patient was initiated on cooling blankets. Procalcitonin 0.13. Continue coverage for hospital-acquired pneumonia with cefepime. MRSA PCR pending. Critical care time 30 minutes spent reviewing charts, reviewing labs, review of imaging, discussion with RN. Vitals/I&O Vitals/I&O: Vital Signs Date Time Temp Pulse Resp B/P (MAP) Pulse Ox O2 Delivery O2 Flow Rate FiO2 06/02/21 12:00 Mechanical Ventilator 06/02/21 12:00 99.9 58 20 112/56 (74) 99 99.9 I & O 06/01/21 06/01/21 06/02/21 15:00 23:00 07:00 Intake Total 503.3333 ml 1502.3333 ml 1083 ml Output Total 170 ml 190 ml 250 ml Balance 333.3333 ml 1312.3333 ml 833 ml Physical Exam Physical Exam: GENERAL: Well-developed and well-nourished male, sedated HEENT: Normocephalic, atraumatic, redness and erythema of both eyes improved, NG tube present NECK: right dialysis catheter present clean,central line changed ( 05/11) Trach + HEART: S1, S2. LUNGS: Decreased breath sounds. ABDOMEN: Less distended, bowel sounds present GENITOURINARY: Nieves in place. EXTREMITIES: Edema present. DERMATOLOGIC: Warm, dry, no generalized rash. NEUROLOGIC: Opens eyes PICC line clean General: No acute distress, severe distress, Other (Alert and awake, trach collar site is intact without any infection) Heart: Regular rate, Normal S1, Normal S2 Lungs: Crackles Abdomen: Normal bowel sounds, Other (ND) Extremities: No clubbing, No cyanosis, Other (Lower extremity edema) Skin: No rashes, No breakdown, No significant lesion Labs Labs: Laboratory Tests Test 06/01/21 17:21 06/01/21 23:58 06/02/21 05:57 06/02/21 06:00 Glucose (Fingerstick) 185 mg/dL (70-99) 203 mg/dL (70-99) 165 mg/dL (70-99) Sodium Level 139 mmol/L (136-145) Potassium Level 3.6 mmol/L (3.5-5.1) Chloride Level 104 mmol/L (98-107) Carbon Dioxide Level 28 mmol/L (21-32) Anion Gap 7 (6-14) Blood Urea Nitrogen 27 mg/dL (8-26) Creatinine 1.9 mg/dL (0.7-1.3) Estimated GFR (Cockcroft-Gault) 42.1 Glucose Level 161 mg/dL (70-99) Calcium Level 8.1 mg/dL (8.5-10.1) Phosphorus Level 2.6 mg/dL (2.6-4.7) Magnesium Level 1.7 mg/dL (1.8-2.4) Triglycerides Level 88 mg/dL (0-150) Assessment and Plan Assessmemt and Plan Problems Medical Problems: (1) Elevated troponin Status: Acute (2) Person under investigation for COVID-19 Status: Acute (3) Pulmonary edema Status: Acute Comment Review of Relevant I have reviewed the following items juanita (where applicable) has been applied. Medications: Current Medications Medications (Trade) Dose Ordered Sig/Jodie Route PRN Reason Start Time Stop Time Status Last Admin Dose Admin Sodium Chloride 90 meq/Potassium Chloride 30 meq/ Potassium Phosphate 13.6 mmol/Magnesium Sulfate 10 meq/ Multivitamins 5 ml/Zinc/Copper/ Manganese/ Selenium 1 ml/ Total Parenteral Nutrition/Amino Acids/Dextrose/ Fat Emulsion Intravenous 1,200 ml @ 50 mls/hr TPN CONT IV 06/01/21 22:00 06/02/21 21:59 06/01/21 21:33 Micafungin Sodium 100 mg/Dextrose 100 ml @ 100 mls/hr Q24H IV 06/02/21 09:00 06/02/21 09:46 Magnesium Sulfate 50 ml @ 25 mls/hr 1X ONCE IV 06/02/21 08:45 06/02/21 10:44 DC 06/02/21 09:53 Propofol 100 ml @ 4.185 mls/ hr CONT PRN IV PER PROTOCOL 06/02/21 09:30 06/02/21 09:36 Justifications for Admission General Conditions Altered mental status?: Yes Justification of admission: Patient has tachycardia (> 100 beats per minute) or hypotension (SBP < 90 mm Hg) leading to inadequate systemic perfusion as indicated by severe/persistent altered mental status. Other Justification HUY WEBB MD Jun 02, 2021 12:46
[2021-06-02] MEDS: MONTELUKAST SODIUM 10 MG TABLET. PO SCH (20:23)
[2021-06-02] MEDS: ATORVASTATIN CALCIUM 40 MG TABLET. PO SCH (20:23)
[2021-06-02] MEDS ORDERED: AMINO ACID IV SCH (22:00)
[2021-06-02] MEDS ORDERED: [UNRECOGNIZED DRUG - OTHER] IV SCH (22:00)
[2021-06-02] MEDS ORDERED: TOTAL PARENTERAL NUTRITION IV SCH (22:00)
[2021-06-02] MEDS ORDERED: DEXTROSE 70% IV SCH (22:00)
--- NOTE | 2021-06-02 22:09 | RAD ---
Single view chest dated 06/02/2021 10:05 PM: COMPARISON: 05/30/2021 Clinical Indication: Central line placement. Findings: Single supine portable exam of the chest was performed. Heart and mediastinal contours are stable. Tr acheostomy tube in place, unchanged. Right-sided dialysis catheter with tips of the proximal right at rium. There is also a left internal jugular catheter with tip projected to the level of the lower SVC , new from prior study. NG tube in place, unchanged. Widespread airspace disease, mildly increased. There is blunting the costophrenic sulci. No pneumotho rax. IMPRESSION: 1. Bilateral airspace disease, mildly increased from 05/30/2021. There is suspected small pleural effu sions. 2. Tubes and lines as described above. No pneumothorax. Electronically signed by: Randell Mosley MD (06/02/2021 10:06 PM) [facility]
[2021-06-03] VITALS (24 sets, daily range): BP systolic 93–173; BP diastolic 46–89
[2021-06-03] MEDS: DEXMEDETOMIDINE 400 MCG in IV NORMAL SALINE 100ML 96 ML IV PRN ×4 (00:52→18:20)
[2021-06-03] MEDS: PROPOFOL 100 ML IV PRN ×3 (01:37→17:24)
[2021-06-03] MEDS: METOPROLOL IV PUSH 5 MG/5 ML VIAL. IVP SCH ×3 (06:16→18:19)
[2021-06-03] MEDS: INSULIN LISPRO 300 UNITS/3 ML VIAL. SQ SCH ×3 (06:27→18:00)
[2021-06-03 06:38] LABS: CALCIUM 7.9 mg/dL (8.5-10.1); GFR 39.7; HEMATOCRIT 22.5 % (39.0-53.0); HEMOGLOBIN 7.2 g/dL (13.0-17.5); MAGNESIUM 1.9 mg/dL (1.8-2.4); PHOSPHORUS 2.6 mg/dL (2.6-4.7); POTASSIUM 3.6 mmol/L (3.5-5.1); RED BLOOD COUNT 2.65 x10^6/uL (4.30-5.70); RED CELL DISTRIBUTION WIDTH 18.2 % (11.5-14.5); WHITE BLOOD COUNT 12.2 x10^3/uL (4.0-11.0)
--- NOTE | 2021-06-03 06:40 | PDOC ---
PULMONARY PROGRESS NOTES DATE: 06/03/21 TIME: 06:40 Subjective on assist control mode, peep 5 fio2 40% was tachypneac propofol added ileus tpn sedated on precedex fentanlyl had hd past 4 days occ nsvtach Vitals Vital Signs Date Time Temp Pulse Resp B/P (MAP) Pulse Ox O2 Delivery O2 Flow Rate FiO2 06/03/21 06:16 91 109/61 06/03/21 06:00 20 100 Ventilator 06/03/21 04:00 98.7 98.7 Comments Tracheostomy ros unable to obtain sedated on vent HEENT: Other (Trachea midline nc at perrl nose clear neck trach site ok no lad) Lungs: Crackles Cardiovascular: S1, S2 Abdomen: Soft Extremities: No Edema Skin: Warm Labs Laboratory Tests Test 06/01/21 11:39 06/01/21 17:21 06/01/21 23:58 06/02/21 05:57 Glucose (Fingerstick) 117 mg/dL (70-99) 185 mg/dL (70-99) 203 mg/dL (70-99) 165 mg/dL (70-99) Test 06/02/21 06:00 06/02/21 17:13 06/02/21 23:43 06/03/21 06:00 Sodium Level 139 mmol/L (136-145) 139 mmol/L (136-145) Potassium Level 3.6 mmol/L (3.5-5.1) 3.6 mmol/L (3.5-5.1) Chloride Level 104 mmol/L (98-107) 105 mmol/L (98-107) Carbon Dioxide Level 28 mmol/L (21-32) 29 mmol/L (21-32) Anion Gap 7 (6-14) 5 (6-14) Blood Urea Nitrogen 27 mg/dL (8-26) 24 mg/dL (8-26) Creatinine 1.9 mg/dL (0.7-1.3) 2.0 mg/dL (0.7-1.3) Estimated GFR (Cockcroft-Gault) 42.1 39.7 Glucose Level 161 mg/dL (70-99) 163 mg/dL (70-99) Calcium Level 8.1 mg/dL (8.5-10.1) 7.9 mg/dL (8.5-10.1) Phosphorus Level 2.6 mg/dL (2.6-4.7) 2.6 mg/dL (2.6-4.7) Magnesium Level 1.7 mg/dL (1.8-2.4) 1.9 mg/dL (1.8-2.4) Triglycerides Level 88 mg/dL (0-150) Glucose (Fingerstick) 168 mg/dL (70-99) 178 mg/dL (70-99) Test 06/03/21 06:25 Glucose (Fingerstick) 158 mg/dL (70-99) Laboratory Tests Test 06/02/21 17:13 06/02/21 23:43 06/03/21 06:00 06/03/21 06:25 Glucose (Fingerstick) 168 mg/dL (70-99) 178 mg/dL (70-99) 158 mg/dL (70-99) Sodium Level 139 mmol/L (136-145) Potassium Level 3.6 mmol/L (3.5-5.1) Chloride Level 105 mmol/L (98-107) Carbon Dioxide Level 29 mmol/L (21-32) Anion Gap 5 (6-14) Blood Urea Nitrogen 24 mg/dL (8-26) Creatinine 2.0 mg/dL (0.7-1.3) Estimated GFR (Cockcroft-Gault) 39.7 Glucose Level 163 mg/dL (70-99) Calcium Level 7.9 mg/dL (8.5-10.1) Phosphorus Level 2.6 mg/dL (2.6-4.7) Magnesium Level 1.9 mg/dL (1.8-2.4) Medications Active Scripts Medications Dose Route/Sig Max Daily Dose Days Date Category Glyburide 2.5 Mg Tablet 1 Tab PO DAILY 04/19/21 Rx Polyethylene Glycol 3350 17 Gm Powd.pack 17 Gm PO DAILY 04/19/21 Rx Dok (Docusate Sodium) 100 Mg Capsule 100 Mg PO PRN DAILY PRN 04/19/21 Rx Bisacodyl 5 Mg Tablet. 5 Mg PO PRN DAILY PRN 04/19/21 Rx Acetaminophen 325 Mg Tablet 650 Mg PO PRN Q4HRS PRN 04/19/21 Rx Aspirin Ec (Aspirin) 81 Mg Tablet. 81 Mg PO DAILYWBKFT 04/19/21 Rx Hydralazine Hcl 25 Mg Tablet 25 Mg PO QID 30 04/19/21 Rx Fenofibrate 54 Mg Tablet 1 Tab PO DAILY 04/17/21 Reported Potassium Chloride (Potassium Chloride) 20 Meq Tablet.er 20 Meq PO DAILY 04/17/21 Reported Coreg (Carvedilol) 12.5 Mg Tablet 37.5 Mg PO BIDWMEALS 04/17/21 Reported Rosuvastatin Calcium 40 Mg Tablet 40 Mg PO QHS 04/17/21 Reported Gabapentin (Gabapentin) 100 Mg Capsule 200 Mg PO BID 04/17/21 Reported Montelukast Sodium Tablet (Montelukast Sodium) 10 Mg Tablet 10 Mg PO HS 04/17/21 Reported Protonix (Pantoprazole Sodium) 20 Mg Tablet.dr 2 Tab PO DAILY 04/17/21 Reported Amlodipine Besylate 5 Mg Tablet 5 Mg PO DAILY 04/17/21 Reported Furosemide 40 Mg Tablet 1 Tab PO DAILY 04/17/21 Reported Proair Hfa Inhaler (Albuterol Sulfate) 8.5 Gm Hfa.aer.ad 2 Puff IH PRN Q4-6HRS PRN 21 04/16/21 Reported Advair 100-50 Diskus (Fluticasone/Salmeterol) 1 Each Disk.w.dev 1 Puff IH BID 04/16/21 Reported Comments Impression . IMPRESSION: 1. Acute hypoxic respiratory failure, multifactorial/COVID-19 viral pneumonia/ARDS, ongoing, intubated 04/25/2021, now status post tracheostomy 05/15/[address] chest with bilateral diffuse interstitial infiltrates without any significant pleural effusion 3. Leukocytosis, sepsis--improved 4. Non-ST segment elevation HI 5. History of tobacco use, suspect COPD, unknown FEV1 6. Chronic kidney disease.== HD as needed per renal 7. Metabolic acidosis multifactorial 8. Abnormal chest x-ray 9. Hypoglycemia, continue to monitor--- resolved 10. Hypotension, suspect volume deficit,/possible sepsis--- resolved 11. Fever--improved 12. Anemia--improved 13. Atrial fibrillation with rapid ventricular response, currently rate controlled 14. Ileus 15. ? fungemia Plan . Updated 06/03/21 Continue current ventilatory support, 20/500/40/5 f/u yeast in bc, Continue cefepime and flagyl, Cont micafungin June 02, DC Zyvox Continue Precedex fentanyl tachypneac propofol added It has been difficult to wean the patient due to nonpulmonary issues such as arrhythmias, worsening hypertension and tachycardia and current ileus. Monitor HGB Follow GI recs-- ileus, PEG tube on hold, Follow nephrology recs-- hemodialysis per nephro Follow infectious disease recommendations for ABX Continue TPN for nutritional support DVT/GI PPX: sq heparin-- on hold D/W RN and RT Pt. is DNR Updated 06/02/21 Continue current ventilatory support, 20500/40/5 weaning as tolerated Continue Precedex fentanyl tachypneac will add propofol It has been difficult to wean the patient due to nonpulmonary issues such as arrhythmias, worsening hypertension and tachycardia and current ileus. Monitor HGB Follow GI recs-- ileus, PEG tube on hold, Follow nephrology recs-- hemodialysis per nephro Follow infectious disease recommendations for ABX Continue TPN for nutritional support DVT/GI PPX: sq heparin-- on hold D/W RN and RT Pt. is DNR Updated 06/01/21 Continue current ventilatory support, 500/40/5 Continue Precedex for sedation It has been difficult to wean the patient due to nonpulmonary issues such as arrhythmias, worsening hypertension and tachycardia and current ileus. Monitor HGB Follow GI recs-- ileus, PEG tube on hold, Follow nephrology recs--currently on hemodialysis Follow infectious disease recommendations for ABX Continue TPN for nutritional support DVT/GI PPX: sq heparin-- on hold D/W RN and RT Pt. is DNR CC time 30 minutes Updated 05/31/21 Continue current ventilatory support, 500/40/5 Continue Precedex for sedation Monitor HGB Follow GI recs-- ileus, PEG tube on hold, nursing reports 75 cc of NG output Follow nephrology recs--currently on hemodialysis Follow infectious disease recommendations for ABX Continue TPN for nutritional support DVT/GI PPX: sq heparin-- on hold D/W RN and RT Pt. is DNR CC time 30 minutes SELENE FERRO MD Jun 03, 2021 06:40
--- NOTE | 2021-06-03 07:06 | PDOC ---
Infectious Disease Note Subjective: Subjective Pt remains vent dependent HDC/Central line removed Discussed with nursing staff Vital Signs: Vital Signs Vital Signs Date Time Temp Pulse Resp B/P (MAP) Pulse Ox O2 Delivery O2 Flow Rate FiO2 06/03/21 06:16 91 109/61 06/03/21 06:00 20 100 Ventilator 06/03/21 04:00 98.7 98.7 Physical Exam: PHYSICAL EXAM GENERAL: Well-developed and well-nourished male, sedated HEENT: Normocephalic, atraumatic, redness and erythema of both eyes improved, NG tube present NECK: right dialysis catheter present clean,central line changed ( 05/11) Trach + HEART: S1, S2. LUNGS: Decreased breath sounds. ABDOMEN: Less distended, bowel sounds present GENITOURINARY: Nieves in place. EXTREMITIES: Edema present. DERMATOLOGIC: Warm, dry, no generalized rash. NEUROLOGIC: Opens eyes PICC line clean Medications: Inpatient Meds: Medications reviewed. Labs: Lab Laboratory Tests Test 06/02/21 17:13 06/02/21 23:43 06/03/21 06:00 06/03/21 06:25 Glucose (Fingerstick) 168 mg/dL (70-99) 178 mg/dL (70-99) 158 mg/dL (70-99) White Blood Count 12.2 x10^3/uL (4.0-11.0) Red Blood Count 2.65 x10^6/uL (4.30-5.70) Hemoglobin 7.2 g/dL (13.0-17.5) Hematocrit 22.5 % (39.0-53.0) Mean Corpuscular Volume 85 fL (79-100) Mean Corpuscular Hemoglobin 27 pg (25-35) Mean Corpuscular Hemoglobin Concent 32 g/dL (31-37) Red Cell Distribution Width 18.2 % (11.5-14.5) Platelet Count 290 x10^3/uL (140-400) Sodium Level 139 mmol/L (136-145) Potassium Level 3.6 mmol/L (3.5-5.1) Chloride Level 105 mmol/L (98-107) Carbon Dioxide Level 29 mmol/L (21-32) Anion Gap 5 (6-14) Blood Urea Nitrogen 24 mg/dL (8-26) Creatinine 2.0 mg/dL (0.7-1.3) Estimated GFR (Cockcroft-Gault) 39.7 Glucose Level 163 mg/dL (70-99) Calcium Level 7.9 mg/dL (8.5-10.1) Phosphorus Level 2.6 mg/dL (2.6-4.7) Magnesium Level 1.9 mg/dL (1.8-2.4) Objective: Assessment: Fungemia May 30, 2021 RT IJ central line removed cath tip sent for cult 1. Febrile illness resolved 2. Leukocytosis, was on steroids,ileus could contribute,improving 3. COVID-19 pneumonia. 4. Acute hypoxic respiratory failure status post intubation.Now S/P Trach 05/15 Pleural effusion 5. Congestive heart failure, acute on chronic. 6. Acute kidney injury on chronic kidney disease on hemodialysis. 7. Diabetes mellitus 2. 8. Atrial fibrillation. 9. Anemia. 10. Protein-calorie malnutrition. 11. Hypertention 12.Hyponatremia 13. Ileus, Bowel obstruction Peg TF on hold, OG to LIS 14.on PPN 15.Mild to Moderate Pleural effusion 16.Lt eye conjunctivitis resolved Plan: Plan of Care f/u yeast in bc Continue cefepime and flagyl Cont micafungin June 02 DC Zyvox Monitor labs and cultures Central line removed, f/u cath tip for culture DC HDC f/u repeat bc from 06/02 Nieves changed 05/30 C. difficile PCR negative Remains critically ill Continue supportive care Prognosis poor Patient's family is deciding whether to go ahead with permacath or not Discussed with nursing staff ALAYNA RIVERO MD Jun 03, 2021 07:06
[2021-06-03] MEDS: ASPIRIN CHEWABLE 81 MG TABLET. PO SCH (08:00)
[2021-06-03] MEDS: PANTOPRAZOLE IV PUSH 40 MG VIAL. IVP SCH (09:21)
[2021-06-03] MEDS: CEFEPIME HCL IV Push 1 GM VIAL. IVP SCH ×2 (09:23→20:21)
[2021-06-03] MEDS: NYSTATIN TOPICAL POWDER 15GM BOTTLE. TP SCH ×2 (10:43→20:21)
[2021-06-03] MEDS: INSULIN GLARGINE SYRINGE. SQ SCH ×2 (10:46→20:22)
--- NOTE | 2021-06-03 10:50 | PDOC ---
[employer] PROGRESS NOTE Date of Service DOS: DATE: 06/03/21 TIME: 10:47 Chief Complaint Chief Complaint Respiratory failure requiring intubation COVID-19 Acute AR A. fib SIRS Hypertension with hypertensive urgency Hyperlipidemia CKD Diabetes History of bilateral subclavian stenosis History of marijuana use Severe protein calorie malnutrition Trach placed on May 15 GI consulted for PEG evaluation --> patient with a lot of vomiting yesterday thus current NG tube to low intermittent suction Anemia secondary to acute blood loss, possible multiple lab draws and related to advanced CKD Positive yeast on 1 out of 4 bottles on blood cultures History of Present Illness History of Present Illness 06/03/2021 No acute events overnight. Hemodialysis and central line removed. Defer to ID for antibiotic management for cultures of the catheter tip and yeast. Patient's chart, labs, images were reviewed and discussed with RN A total of 31 minutes of critical care time was spent in reviewing chart, labs, and images. Discussed with RN and SW. 06/02/2021 No acute events overnight. Patient saturating 100% on trach collar. Patient did have a fever low-grade of 100.3. Yeast did grow on 1 of 4 bottles on blood cultures. Plan to remove central line and dialysis catheter. Family considera tion for tunneled catheterization possibly hold. Micafungin was started per ID. Patient's chart, labs, images were reviewed and discussed with RN 06/01/2021 No acute events overnight. Patient saturating well on trach collar. Patient seen and examined bedside and on HD. Hemoglobin trended down from 8.4-7.3. Afebrile in the last 24 hours. Patient's chart, labs, images were reviewed and discussed with RN A total of 36 minutes of critical care time was spent in reviewing chart, labs, and images. Discussed with RN and SW. 05/31/2021 No acute events overnight. Patient saturating 100% on trach collar. Hemoglobin improved after 1 unit PRBC transfusion to 8.4. Patient is currently undergoing dialysis and his labs have been stable. Patient's chart, labs, images were reviewed and discussed with RN A total of 38 minutes of critical care time was spent in reviewing chart, labs, and images. Discussed with RN and SW. 05/30/2021 No acute events overnight. Patient doing well on trach collar. Hemoglobin decreased down to 6.7 pending 1 unit PRBC transfusion. Restarted on linezolid and Flagyl and cefepime. Pending PICC placement and central line IJ removal. Patient's chart, labs, images were reviewed and discussed with RN 05/29/2021 No acute events or night. Patient tolerating trach collar humidified. Saturating at 99%. Pending PICC line placement and IJ central line removal. Per ID. Possibly in not needing HD. Making urine adequately with Lasix as needed. Patient's chart, labs, images were reviewed and discussed with RN A total of 34 minutes of critical care time was spent in reviewing chart, labs, and images. Discussed with RN and SW. 05/28/2021 No acute events overnight. Patient doing well on trach with settings of 40% FiO2 and PEEP of 8. Pending PEG placement after ileus is resolved will defer this to GI for timing of PEG placement.. Also pending tunneled catheter placeme nt for dialysis. Patient's chart, labs, images were reviewed and discussed with RN A total of 31 minutes of critical care time was spent in reviewing chart, labs, and images. Discussed with RN and SW. 05/27/2021: Afebrile. On vent with FiO2 40%, PEEP 5. Hemoglobin remains stable at 7.2 today; continue to trend. WBC 13.4. Kidney function appears to be stabilized. LTAC transfer is pending PEG tube placement. Off meropenem; will continue to monitor. Kidney function appears to be stable. Critical care time 30 minutes spent reviewing charts, reviewing labs, reviewing imaging, discussion with RN. 05/26/2021: Afebrile. On vent with FiO2 40%, PEEP 5. Hemoglobin 7.3 yesterday, and hemoglobin 7.2 today; continue to trend. Leukocytosis slightly improved, W BC 12.9 today. Has been accepted at [facility]; transfer pending, but will need PEG tube placement prior. Critical care time 30 minutes spent reviewing charts, reviewing labs, reviewing imaging, discussion with RN. 05/25/2021: Afebrile. On vent with FiO2 40%, PEEP 5. Hemoglobin 8.6 yesterday, hemoglobin 7.3 today. Reportedly had HD yesterday. Continue IV antibiotics, per ID; WBC possibly reactive to ileus. Has been accepted at [facility]; transfer pending, but will need PEG tube placement prior. Critical care time 30 minutes spent reviewing charts, reviewing labs, reviewing imaging, discussion with RN. 05/24/2021: No acute events overnight. Afebrile. NG tube output has decreased. Kidney function appears stable. Continue IV antibiotics, per ID. Patient has been accepted to [facility], pending insurance authorization. Critical care time 30 minutes spent reviewing charts, reviewing labs, reviewing imaging, discussion with RN. 05/23/2021: Afebrile. On vent with FiO2 40%, PEEP 5. NG tube for 635 mL out overnight. Continue NG tube to suction. HD per nephrology. Continue IV antibiotics, per ID. Critical care time 30 minutes spent reviewing charts, reviewing labs, reviewing imaging, discussion with RN. 05/22/2021: Afebrile. On vent with FiO2 40%, PEEP 5. Continues to have excessive NG output. Continue NG tube to suction for now; PEG on hold for now. Continue hemodialysis, per nephrology. Continue IV antibiotics, per ID. Social work helping with discharge planning to LTACH likely in the near future after PEG is placed. Critical care time 30 minutes spent reviewing charts, reviewing labs, reviewing imaging, discussion with RN. 05/21/2021: Afebrile, no acute events overnight. Remains on vent, FiO2 40%, PEEP 5. S/P tracheostomy on 05/15/2021. KUB on 05/19/2021 consistent with ileus. Per GI, continue NG tube to suction and parenteral nutrition for now. Continue IV antibiotics, per ID. Continue hemodialysis, per nephrology. Continue supportive care. Critical care time 30 minutes spent reviewing charts, reviewing imaging, reviewing labs, and discussed with RN. 05/20/21 Patient seen and examined at bedside. Again had multiple bouts of vomiting yesterday. GI continuing to follow for PEG evaluation although on hold right now due to persistent vomiting. Leukocytosis does persist but patient afebrile. Plan of care discussed with bedside RN 05/19/21 Patient seen and examined at bedside. Apparently had a fair bit of vomiting overnight. GI following for PEG evaluation. Otherwise patient remained stable. Plan of care discussed with bedside nurse. 05/18/21 Patient seen and examined at bedside. Attempting to increase tube feeds, GI consulted for PEG evaluation. Otherwise no major clinical changes. Continue to wean sedation. Plan of care discussed with bedside nurse. 05/17/21 Patient seen and examined at bedside. Attempting to wean sedation. Patient with some diarrhea. Per infectious disease will give erythromycin eye ointment for eye lesions. Nephro and pulm also following. Continue sedation weaning, plan of care discussed with bedside nurse. 05/16/21 Patient seen and examined at bedside. Underwent tracheostomy yesterday today tolerated well. When seen this morning patient is still notably sedated respiratory status is stable. Continue antibiotics and supportive measures. Plan of care discussed with bedside nurse. Attempt to wean sedation. 05/15/21 Patient seen and examined at bedside Remains intubated and sedated planning for tracheostomy today Continue current respiratory support; continue antibiotics, continue sedation Follow recommendations of pulmonary, renal, and infectious disease Plan of care discussed with bedside nurse Will follow up with patient after surgery today 05/14/21 Patient seen and examined at bedside Remains intubated and sedated planning for tracheostomy tomorrow Continue current respiratory support; continue antibiotics, continue sedation Follow recommendations of pulmonary, renal, and infectious disease Plan of care discussed with bedside nurse 05/13/2021 did not tolerate sedation vacation 05/11/2021, profoundly hypertensive ABG/CXR--changes as needed Continue iv cefepime , add zyvox, sputum culture VENT [id number]%, 5 of PEEP Mild pulmonary edema with new small right pleural effusion and basilar opacities now on cardene gtt prn Patient seen and examined in the [facility]- ICU remains mechanically ventilated IDLA on CKD - ATN 2/2 sepsis/ Hypotension,UOP good,on IV Lasix ; requiring dialysis, Sedated with propofol Dex and fentanyl Chart reviewed Discussed with RN He remains critically ill intubated/sedated cont cardene gtt not able to tolerate PS trial 05/06/21 Change central line and send cath tip for cultures. 05-09 C. difficile PCR ADELSO AVILA MD ORDERED: BCULT Procedure Result BLOOD CULTURE Final NO GROWTH AFTER 5 DAYS JONES FISHMAN MD, CHRISTOPHER S MD BLOOD CULTURE Preliminary NO GROWTH AFTER 4 DAYS 37 min cc time 05/12/2021 Continue iv cefepime , add zyvox, sputum culture VENT %, 5 of PEEP Mild pulmonary edema with new small right pleural effusion and basilar opacities now on cardene gtt prn Patient seen and examined in the [facility]19 ICU remains mechanically ventilated ILDA on CKD - ATN 2/2 sepsis/ Hypotension,UOP good,on IV Lasix ; requiring dialysis, Sedated with propofol Dex and fentanyl Chart reviewed Discussed with RN He remains critically ill intubated/sedated cont cardene gtt not able to tolerate PS trial 05/06/21 Change central line and send cath tip for cultures. 05-09 C. difficile PCR JONES FISHMAN MD, CHRISTOPHER S MD SISILLO, SABATO MD ORDERED: BCULT Procedure Result BLOOD CULTURE Preliminary NO GROWTH AFTER 2 DAYS BLOOD CULTURE Preliminary NO GROWTH AFTER 4 DAYS 33 min cc time 05/11/2021 Continue iv cefepime , add zyvox, sputum culture VENT [id number]%, 5 of PEEP Mild pulmonary edema with new small right pleural effusion and basilar opacities now on cardene gtt prn Patient seen and examined in the [place] [address] ICU remains mechanically ventilated ILDA on CKD - ATN 2/2 sepsis/ Hypotension,UOP good,on IV Lasix ; requiring dialysis, Sedated with propofol Dex and fentanyl Chart reviewed Discussed with RN He remains critically ill intubated/sedated cont cardene gtt not able to tolerate PS trial 05/06/21 Change central line and send cath tip for cultures. 05-09 C. difficile PCR JONES FISHMAN MD,ADELSO DASILVA MD, MD ORDERED: BCULT Procedure Result BLOOD CULTURE Preliminary NO GROWTH AFTER 2 DAYS BLOOD CULTURE Preliminary NO GROWTH AFTER 4 DAYS 36 min cc time 05/10/2021 VENT [id number]%, 5 of PEEP Mild pulmonary edema with new small right pleural effusion and basilar opacities now on cardene gtt prn Patient seen and examined in the [place] [address] ICU remains mechanically ventilated ILDA on CKD - ATN 2/2 sepsis/ Hypotension,UOP good,on IV Lasix ; requiring dialysis, Sedated with propofol Dex and fentanyl Chart reviewed Discussed with RN He remains critically ill intubated/sedated cont cardene gtt not able to tolerate PS trial 05/06/21 Change central line and send cath tip for cultures. 05-09 C. difficile PCR JONES FISHMAN MD,ADELSO DASILVA MD, MD ORDERED: BCULT Procedure Result BLOOD CULTURE Preliminary NO GROWTH AFTER 2 DAYS BLOOD CULTURE Preliminary NO GROWTH AFTER 4 DAYS 33 min cc time 05/09/2021 VENT [id number]%, 5 of PEEP Mild pulmonary edema with new small right pleural effusion and basilar opacities now on cardene gtt prn Patient seen and examined in the COVID-19 ICU remains mechanically ventilated ILDA on CKD - ATN 2/2 sepsis/ Hypotension,UOP good,on IV Lasix ; requiring dialysis, Sedated with propofol Dex and fentanyl Chart reviewed Discussed with RN He remains critically ill intubated/sedated cont cardene gtt not able to tolerate PS trial 05/06/21 Change central line and send cath tip for cultures. 05-09 C. difficile PCR JONES FISHMAN MD,ADELSO DASILVA MD, MD ORDERED: BCULT Procedure Result BLOOD CULTURE Preliminary NO GROWTH AFTER 2 DAYS BLOOD CULTURE Preliminary NO GROWTH AFTER 4 DAYS 37 min cc time 05/08/2021 Currently on 40%, 5 of PEEP now on cardene gtt Patient seen and examined in the [place] [address] ICU remains mechanically ventilated ILDA on CKD - ATN 2/2 sepsis/ Hypotension,UOP good,on IV Lasix ; requiring dialysis, AC/20/500/40 percent with 5 of PEEP Sedated with propofol Dex and fentanyl Chart reviewed Discussed with RN He remains critically ill intubated/sedated cont cardene gtt not able to tolerate PS trial 05/06/21 JONES FISHMAN MD,BRIAN AVILA,ADELSO POTTER ORDERED: BCULT Procedure Result BLOOD CULTURE Preliminary NO GROWTH AFTER 2 DAYS BLOOD CULTURE Preliminary NO GROWTH AFTER 4 DAYS 33 min cc time 05/07/2021 Patient seen and examined in the [place] [address] ICU He remains mechanically ventilated ILDA on CKD - ATN 2/2 sepsis/ Hypotension,UOP good,on IV Lasix ; requiring dialysis, AC/20/500/40 percent with 5 of PEEP Sedated with propofol Dex and fentanyl Chart reviewed Discussed with RN He remains critically ill intubated/sedated cont cardene gtt not able to tolerate PS trial 05/06/21 JONES FISHMAN MD,BRIAN AVILA,ADELSO POTTER ORDERED: BCULT Procedure Result BLOOD CULTURE Preliminary NO GROWTH AFTER 2 DAYS 36 min cc time 05/06/2021 Patient seen and examined in the [place] [address] ICU He remains mechanically ventilated AC/20/500/40 percent with 5 of PEEP Sedated with propofol Dex and fentanyl Chart reviewed Discussed with RN He remains critically ill 05/05/2020 Patient seen and examined in the [place] [address] ICU He remains on the vent AC/20/500/40 percent with 5 of PEEP Discussed with RN Chart reviewed Has SCDs in place Nieves to bedside drainage He remains critically ill 05/04/2021 Patient seen and examined in the [place] [address] ICU Still intubated Sedated with propofol and fentanyl AC/20/500/70 percent with 5 of PEEP On dialysis currently Has SCDs in Nieves to bedside drainage Discussed with RN Chart reviewed 05/03/2021 Patient seen and examined in the [place] [address] ICU He is still intubated AC/20/500/70 percent with 5 of PEEP Has SCDs in place Nieves to bedside drainage Sedated with fentanyl Versed and propofol Discussed are Chart reviewed Remains critically ill 05/02/2021 Patient seen and examined in the [place] [address] ICU He is sedated with propofol fentanyl and Versed Ventilator settings as follow AC/20/500/40 percent with 5 of PEEP Has Nieves to bedside drainage Chart reviewed Discussed with RN He remains critically ill 05/01/2021 Patient seen and examined in the [place] [address] ICU He is still intubated AC/20/500/40 percent with 5 of PEEP In A. fib Sedated with propofol fentanyl and Versed Has a heparin drip Missy with RN Chart reviewed He remains critically 04/30/2020 Patient seen and examined in the [place] [address] ICU He remains on the vent AC/20/500/40 5% with 5 PEEP Currently on dialysis Has OG feeds running Has a Nieves to bedside drainage Sedated with propofol and fentanyl Reviewed chart Discussed with RN He remains critically ill Mr Cunha is a 75 yo male w/ PMHx CAD, HTN, Hyperlipidemia, subclavian steel syndrome, subclavian stenosis s/p left subclavian sent placement complicated by retroperitoneal hematoma s/p evacuation in 08/2015), asthma, BART, CKD, DM2 who presented from home with home health care noted that he was short of breath and valverde with O2 saturations less than 89% as low as 84% not improved with nasal cannulated oxygen placed on CPAP and brought to ED for further care. He was just discharged from the hospital a week ago on April 19, 2021 for abdominal pain and was going for further cardiac testing with outpatient stress testing scheduled on May 28, 2021. Had echocardiogram April 17, 2021 with normal-appearing EF with moderate concentric LVH no significant valvular abnormalities. WBC 20, Hb 10.7, platelets 268, NA 140, K3.8, BUN 21, CR 2.9, glucose 162, albumin 3, troponin I 1.372, NT proBNP 33,318. EKG appears sinus tachycardia rate of 105 bpm with multiple PACs small ST depressions in lead II and V5. TWI in V6. Chest radiograph with diffuse interstitial and alveolar opacities and ET tube 5.8 cm above the leilani. Due to worsening respiratory status ED physician elected to intubate patient. Seen postintubation. Blood pressure little low after propofol bolus, but improved. Significant white frothy sputum per ET tube. Admitted to ICU for further care 04/29/2021: Afebrile, remains on vent at FiO2 45%, PEEP 5. WBC 20.4. Hemodialysis per nephrology. We will continue treatment with empiric antibiotics, remdesivir, and steroids. Continue heparin infusion and supportive care. Critical care time 30 minutes reviewing chart, review labs, review imaging, discussion with RN. 04/28/2021: Afebrile. FiO2 50%, PEEP 5. Nontunneled HD catheter placed yesterday due to worsening kidney function; eGFR 16 (CKD4). Chest x-ray showed unchanged interstitial opacities. Continue empiric antibiotics, steroids, and remdesivir. Continue heparin infusion, and continue to follow cardiology recommendations on new diagnosis of A. fib. Critical care time 30 minutes reviewing chart, review labs, review imaging, discussion with RN. 04/27/2021: Afebrile. On vent with FiO2 50%, PEEP 5. Troponin 2.8 yesterday; probable type II, demand ischemia. New onset A. fib. Continue heparin drip and as needed digoxin, per cardiology. Continue treatment with remdesivir, steroids, and prophylactic antibiotics. CBG 323 this morning; will add basal insulin. Critical care 30 minutes spent reviewing labs, reviewing imaging, reviewing charts, and discussion with RN. 04/26/2021: COVID-19 positive. Febrile overnight that was managed with cooling blankets. On vent with FiO2 50%, PEEP 5. Per cardiology, elevated troponins likely secondary to demand ischemia; continue heparin drip per cardiology. Maintain fluid balance and avoid nephrotoxins. Continue treatment with re mdesivir, steroids, and prophylactic antibiotics. 30 minutes critical care time spent reviewing charts, reviewing labs, reviewing imaging, and discussion with RN. 04/25/2021: On vent FiO2 50, PEEP 5. Febrile, T-max 103.3. Patient was initiated on cooling blankets. Procalcitonin 0.13. Continue coverage for hospital-acquired pneumonia with cefepime. MRSA PCR pending. Critical care time 30 minutes spent reviewing charts, reviewing labs, review of imaging, discussion with RN. Vitals/I&O Vitals/I&O: Vital Signs Date Time Temp Pulse Resp B/P (MAP) Pulse Ox O2 Delivery O2 Flow Rate FiO2 06/03/21 09:04 100 Ventilator 06/03/21 07:00 62 30 146/76 (99) 06/03/21 04:00 98.7 98.7 I & O 06/02/21 06/02/21 06/03/21 15:00 23:00 07:00 Intake Total 550 ml 1375 ml 1051 ml Output Total 845 ml 300 ml 215 ml Balance -295 ml 1075 ml 836 ml Physical Exam Physical Exam: GENERAL: Well-developed and well-nourished male, sedated HEENT: Normocephalic, atraumatic, redness and erythema of both eyes improved, NG tube present NECK: right dialysis catheter present clean,central line changed ( 05/11) Trach + HEART: S1, S2. LUNGS: Decreased breath sounds. ABDOMEN: Less distended, bowel sounds present GENITOURINARY: Nieves in place. EXTREMITIES: Edema present. DERMATOLOGIC: Warm, dry, no generalized rash. NEUROLOGIC: Opens eyes PICC line clean General: No acute distress, severe distress, Other (Alert and awake, trach collar site is intact without any infection) Heart: Regular rate, Normal S1, Normal S2 Lungs: Crackles Abdomen: Normal bowel sounds, Other (ND) Extremities: No clubbing, No cyanosis, Other (Lower extremity edema) Skin: No rashes, No breakdown, No significant lesion Labs Labs: Laboratory Tests Test 06/02/21 17:13 06/02/21 23:43 06/03/21 06:00 06/03/21 06:25 Glucose (Fingerstick) 168 mg/dL (70-99) 178 mg/dL (70-99) 158 mg/dL (70-99) White Blood Count 12.2 x10^3/uL (4.0-11.0) Red Blood Count 2.65 x10^6/uL (4.30-5.70) Hemoglobin 7.2 g/dL (13.0-17.5) Hematocrit 22.5 % (39.0-53.0) Mean Corpuscular Volume 85 fL (79-100) Mean Corpuscular Hemoglobin 27 pg (25-35) Mean Corpuscular Hemoglobin Concent 32 g/dL (31-37) Red Cell Distribution Width 18.2 % (11.5-14.5) Platelet Count 290 x10^3/uL (140-400) Sodium Level 139 mmol/L (136-145) Potassium Level 3.6 mmol/L (3.5-5.1) Chloride Level 105 mmol/L (98-107) Carbon Dioxide Level 29 mmol/L (21-32) Anion Gap 5 (6-14) Blood Urea Nitrogen 24 mg/dL (8-26) Creatinine 2.0 mg/dL (0.7-1.3) Estimated GFR (Cockcroft-Gault) 39.7 Glucose Level 163 mg/dL (70-99) Calcium Level 7.9 mg/dL (8.5-10.1) Phosphorus Level 2.6 mg/dL (2.6-4.7) Magnesium Level 1.9 mg/dL (1.8-2.4) Assessment and Plan Assessmemt and Plan Problems Medical Problems: (1) Elevated troponin Status: Acute (2) Person under investigation for COVID-19 Status: Acute (3) Pulmonary edema Status: Acute Comment Review of Relevant I have reviewed the following items juanita (where applicable) has been applied. Medications: Current Medications Medications (Trade) Dose Ordered Sig/Jodie Route PRN Reason Start Time Stop Time Status Last Admin Dose Admin Sodium Chloride 90 meq/Potassium Chloride 30 meq/ Potassium Phosphate 13.6 mmol/Magnesium Sulfate 12 meq/ Multivitamins 5 ml/Zinc/Copper/ Manganese/ Selenium 1 ml/ Total Parenteral Nutrition/Amino Acids/Dextrose/ Fat Emulsion Intravenous 1,200 ml @ 50 mls/hr TPN CONT IV 06/02/21 22:00 06/03/21 21:59 06/02/21 21:31 Justifications for Admission General Conditions Altered mental status?: Yes Justification of admission: Patient has tachycardia (> 100 beats per minute) or hypotension (SBP < 90 mm Hg) leading to inadequate systemic perfusion as indicated by severe/persistent altered mental status. Other Justification HUY WEBB MD Jun 03, 2021 10:50
--- NOTE | 2021-06-03 10:57 | PDOC ---
Renal-Progress Notes Subjective Notes Notes AWAKE History of Present Illness Hx of present illness NO ACUTE CHANGES FROM YESTERDAY Vitals Vitals Vital Signs Date Time Temp Pulse Resp B/P (MAP) Pulse Ox O2 Delivery O2 Flow Rate FiO2 06/03/21 09:04 100 Ventilator 06/03/21 07:00 62 30 146/76 (99) 06/03/21 04:00 98.7 98.7 Weight Weight [ ] I.O. Intake and Output Intake and Output 06/03/21 07:00 Intake Total 2976 ml Output Total 1360 ml Balance 1616 ml IV Total 2976 ml Output Urine Total 1110 ml Gastric Drainage Total 250 ml Labs Labs Laboratory Tests Test 06/02/21 17:13 06/02/21 23:43 06/03/21 06:00 06/03/21 06:25 Glucose (Fingerstick) 168 mg/dL (70-99) 178 mg/dL (70-99) 158 mg/dL (70-99) White Blood Count 12.2 x10^3/uL (4.0-11.0) Red Blood Count 2.65 x10^6/uL (4.30-5.70) Hemoglobin 7.2 g/dL (13.0-17.5) Hematocrit 22.5 % (39.0-53.0) Mean Corpuscular Volume 85 fL (79-100) Mean Corpuscular Hemoglobin 27 pg (25-35) Mean Corpuscular Hemoglobin Concent 32 g/dL (31-37) Red Cell Distribution Width 18.2 % (11.5-14.5) Platelet Count 290 x10^3/uL (140-400) Sodium Level 139 mmol/L (136-145) Potassium Level 3.6 mmol/L (3.5-5.1) Chloride Level 105 mmol/L (98-107) Carbon Dioxide Level 29 mmol/L (21-32) Anion Gap 5 (6-14) Blood Urea Nitrogen 24 mg/dL (8-26) Creatinine 2.0 mg/dL (0.7-1.3) Estimated GFR (Cockcroft-Gault) 39.7 Glucose Level 163 mg/dL (70-99) Calcium Level 7.9 mg/dL (8.5-10.1) Phosphorus Level 2.6 mg/dL (2.6-4.7) Magnesium Level 1.9 mg/dL (1.8-2.4) Micro Micro Microbiology 06/02/21 Blood Culture - Preliminary, Resulted NO GROWTH AFTER 1 DAY 05/30/21 Gram Stain Evaluation - Final, Complete 05/30/21 Respiratory Culture - Final, Complete 05/04/21 Gram Stain - Final, Complete 05/04/21 Aerobic Culture - Final, Complete Review of Systems Constitutional: yes: unresponsive, other Physical Exam General Appearance: no apparent distress, other (ON THE VENT) Skin: warm, dry, edema Respiratory: decreased breath sounds Heart: S1S2 Abdomen: soft, N/T, distension, other Genitourinary: bladder flat, mooney catheter Extremities: pulses present, edema Neurology: other (sedated) Musculoskeletal: Other Assessment Assessment IMP NEW FUNGEMIA HYPONATREMIA-RESOLVED HYPOKALEMIA LOW PO4-CORRECTED LOW MAG-CORRECTED [id number] UO BUT NO CLEARANCE CKD - SUSPECT STAGE 3 ACUTE HYPOXIC RESP FAILURE COVID 19 PNEUMONIA MET ACIDOSIS-BETTER LEUCOCYTOSIS ANEMIA S/P TRACH ANASARCA ILEUS PLAN RESP SUPPORT HD AGAIN TOMORROW ANTIBIOTICS ANTIFUNGALS OFF IV LASIX NEW TEMP HD LINE TOMORROW TO FACILITATE HD D/W ID CONT TPN WILL FOLLOW JEANINE NEWTON MD Jun 03, 2021 10:57
[2021-06-03] MEDS: TPN PER PHARMACY MC PRN ×2 (11:03→16:53)
[2021-06-03] MEDS: MICAFUNGIN 100 MG in IV DEXTROSE 5% 100ML 100 ML IV SCH (11:46)
--- NOTE | 2021-06-03 16:53 | NUR ---
Pharmacy TPN Dosing Note S: NILAM LAN is a 75 year old M Currently receiving Central Continuous TPN started 05/22/21 B:Pertinent PMH: ILEUS Height: 6 feet, 2 inches Weight: 138.5 kg Current diet: NPO LABS: Sodium: 139 Potassium: 3.6 Chloride: 105 Calcium: 8.3 Corrected Calcium: 10.22 Magnesium: 1.9 CO2: 29 SCr: 2.0 Glucose: 163 Albumin: 1.6 AST: 27 ALT: 19 TPN FORMULA: TPN TYPE: Central Continuous AMINO ACIDS: 90 gm DEXTROSE: 290 gm LIPIDS: 0 gm SODIUM CHLORIDE: 90 mEq SODIUM ACETATE: - mEq SODIUM PHOSPHATE: - mmol POTASSIUM CHLORIDE: 30 mEq POTASSIUM ACETATE: - mEq POTASSIUM PHOSPHATE: 13.6 mmol MAGNESIUM: 12 mEq CALCIUM: 0 mEq INSULIN: - units MULTIPLE VITAMIN: 5 ml TRACE ELEMENTS: 1 ml(s) TPN PLAN: RESTART PROPOFOL, RUNNING AT 16.74 ML/HR (40GM LIPID/24HRS). REMOVE LIPID FROM TPN TODAY. R: Continue TPN AT 50 ML/HR Will monitor electrolytes, glucose, and tolerance to TPN. GALEN DE LA CRUZ [facility], 06/03/21 1706
[2021-06-03] MEDS: MONTELUKAST SODIUM 10 MG TABLET. PO SCH (20:21)
[2021-06-03] MEDS: ATORVASTATIN CALCIUM 40 MG TABLET. PO SCH (20:21)
[2021-06-03] MEDS ORDERED: DEXTROSE 70% IV SCH (22:00)
[2021-06-03] MEDS ORDERED: AMINO ACID IV SCH (22:00)
[2021-06-03] MEDS ORDERED: TOTAL PARENTERAL NUTRITION IV SCH (22:00)
[2021-06-03] MEDS ORDERED: [UNRECOGNIZED DRUG - OTHER] IV SCH (22:00)
[2021-06-04] VITALS (21 sets, daily range): BP systolic 94–193; BP diastolic 47–82
[2021-06-04] MEDS: PROPOFOL 100 ML IV PRN ×4 (00:07→21:50)
[2021-06-04] MEDS: METOPROLOL IV PUSH 5 MG/5 ML VIAL. IVP SCH ×5 (00:08→23:34)
[2021-06-04] MEDS: INSULIN LISPRO 300 UNITS/3 ML VIAL. SQ SCH ×5 (00:27→23:37)
[2021-06-04] MEDS: DEXMEDETOMIDINE 400 MCG in IV NORMAL SALINE 100ML 96 ML IV PRN ×4 (01:10→21:49)
[2021-06-04 06:46] LABS: CALCIUM 7.8 mg/dL (8.5-10.1); CREATININE 2.2 mg/dL (0.7-1.3); GFR 35.6; PHOSPHORUS 2.9 mg/dL (2.6-4.7); POTASSIUM 3.6 mmol/L (3.5-5.1)
[2021-06-04] MEDS: ASPIRIN CHEWABLE 81 MG TABLET. PO SCH (08:00)
[2021-06-04] MEDS ORDERED: LIDOCAINE WITH 8.4% SOD BICARB 3 ML DISP.SYRIN. ONE (08:58)
[2021-06-04] MEDS: CEFEPIME HCL IV Push 1 GM VIAL. IVP SCH ×2 (09:00→20:31)
[2021-06-04] MEDS ORDERED: LIDOCAINE WITH 8.4% SOD BICARB 3 ML DISP.SYRIN. INJ ONE (09:30)
--- NOTE | 2021-06-04 09:46 | PDOC ---
DATE OF SERVICE DATE: 06/04/21 TIME: 09:36 SUBJECTIVE ROS remains vent dependent OBJECTIVE Vital Signs Vital Signs Date Time Temp Pulse Resp B/P (MAP) Pulse Ox O2 Delivery O2 Flow Rate FiO2 06/04/21 09:16 100 Ventilator 06/04/21 08:08 98.3 64 20 131/61 (84) 98.3 I & 0 Intake and Output 06/04/21 07:00 Intake Total 2510.6 ml Output Total 810 ml Balance 1700.6 ml IV Total 2510.6 ml Output Urine Total 510 ml Gastric Drainage Total 300 ml PHYSICAL EXAM Physical Exam GENERAL: sedated, on Vent HEENT: NG tube present NECK: Trach + HEART: S1, S2. LUNGS: Decreased breath sounds. ABDOMEN: bowel sounds present GENITOURINARY: Nieves in place. EXTREMITIES: Edema present. DERMATOLOGIC: Warm, dry, no generalized rash. NEUROLOGIC: Opens eyes DIAGNOSIS/ASSESSMENT Assessment & Plan ILDA-ATN- requiring dialysis , currently on MWF schedule ; Non Oliguric , marginal UOp Dialysis today, discussed treatment plan with Ashly ,Access new Temp HDC placed today Fungemia- on antifungal HypoNatremia- Resolved HypoKalemia CKD stage 3 Acute Hypoxic Resp failure - S/P Trach COVID 19 Pneumonia Anemia Nutrition on TPn COMMENT/RELEVANT DATA Meds Current Medications Medications (Trade) Dose Ordered Sig/Jodie Start Time Stop Time Status Last Admin Dose Admin Acetaminophen (Tylenol Supp) 650 mg PRN Q6HRS PRN 05/29/21 16:15 05/29/21 16:37 650 MG Acetaminophen (Tylenol) 650 mg PRN Q6HRS PRN 04/24/21 14:00 Cancel Albumin Human 200 ml @ 200 mls/hr 1X PRN PRN 06/02/21 11:45 06/02/21 17:44 DC Amiodarone HCl (Cordarone) 200 mg DAILY 04/28/21 09:00 05/22/21 16:27 DC 05/21/21 11:07 200 MG Amiodarone HCl 150 mg/Dextrose 103 ml @ 618 mls/hr 1X ONCE 04/27/21 02:30 04/27/21 02:39 DC 04/27/21 02:30 618 MLS/HR Amiodarone HCl 450 mg/Dextrose 259 ml @ 0 mls/hr 1X ONCE 05/22/21 16:30 05/22/21 16:34 DC 05/22/21 16:59 33 MLS/HR Amlodipine Besylate (Norvasc) 10 mg DAILY 05/16/21 09:00 05/29/21 08:07 10 MG Aspirin (Aspirin Chewable) 81 mg DAILYWBKFT 05/03/21 10:00 05/29/21 08:05 81 MG Aspirin (Ecotrin) 81 mg DAILYWBKFT 04/25/21 08:00 05/03/21 09:56 DC 05/02/21 07:20 81 MG Atorvastatin Calcium (Lipitor) 80 mg QHS 04/24/21 21:00 05/23/21 19:58 80 MG Bisacodyl (Dulcolax Supp) 10 mg PRN DAILY PRN 04/24/21 14:00 05/31/21 07:45 10 MG Bupivacaine HCl/ Epinephrine Bitart (Sensorcain-Epi 0.5%-1:535811 Mpf) 30 ml STK-MED ONCE 05/15/21 07:05 05/15/21 07:06 DC Carvedilol (Coreg) 3.125 mg BIDWMEALS 04/24/21 17:00 04/25/21 15:42 DC 04/25/21 09:23 3.125 MG Cefepime HCl (Maxipime) 1 gm Q12HR 05/30/21 09:00 06/03/21 20:21 1 GM Cellulose (Surgicel Fibrillar 1x2) 1 each STK-MED ONCE 05/15/21 07:05 05/15/21 07:06 DC 05/15/21 09:40 1 EACH Chlorhexidine Gluconate (Peridex) 15 ml BID 04/24/21 21:00 04/25/21 11:19 DC 04/24/21 20:49 15 ML Daptomycin 600 mg/ Sodium Chloride 50 ml @ 100 mls/hr Q48H 05/04/21 15:00 05/06/21 08:07 DC 05/04/21 15:24 100 MLS/HR Dexamethasone Sodium Phosphate (Decadron) 4 mg STK-MED ONCE 05/15/21 07:53 05/15/21 07:53 DC Dexmedetomidine HCl 400 mcg/ Sodium Chloride 100 ml @ 0 mls/hr CONT PRN 05/04/21 10:30 06/04/21 05:46 16.4 MLS/HR Dextrose (Dextrose 50%-Water Syringe) 12.5 gm PRN Q15MIN PRN 05/03/21 14:00 Digoxin (Lanoxin) 250 mcg 1X ONCE 04/26/21 13:00 04/26/21 13:05 DC 04/26/21 15:02 250 MCG Ephedrine Sulfate (ePHEDrine PF IN SALINE SYRINGE) 50 mg STK-MED ONCE 05/15/21 09:15 05/15/21 09:15 DC Erythromycin (Romycin) 0.25 inch BID 05/17/21 12:00 05/25/21 13:24 DC 05/25/21 07:43 0.25 INCH Etomidate (Amidate) 20 mg STK-MED ONCE 04/24/21 13:38 04/24/21 13:38 DC Fentanyl Citrate 30 ml @ 0 mls/hr CONT PRN 04/24/21 14:00 06/04/21 03:31 2.5 MLS/HR Fentanyl Citrate (Fentanyl 2ml Vial) 25 mcg PRN Q1HR PRN 04/24/21 14:00 05/17/21 16:12 25 MCG Furosemide (Lasix) 80 mg TID 05/27/21 09:00 06/01/21 11:08 DC 05/31/21 20:10 80 MG Heparin Sodium (Porcine) (Heparin Sodium) 5,000 unit Q8HRS 05/18/21 10:00 05/30/21 11:07 DC 05/30/21 06:07 5,000 UNIT Heparin Sodium/ Dextrose 250 ml @ 0 mls/hr CONT PRN 04/24/21 16:45 05/01/21 12:32 DC 05/01/21 05:10 10 MLS/HR Hydralazine HCl (Apresoline Inj) 10 mg PRN QID PRN 05/22/21 16:30 05/29/21 08:08 10 MG Hydralazine HCl (Apresoline) 25 mg QID 05/10/21 10:00 05/22/21 16:27 DC 05/21/21 17:24 25 MG Info (Anti-Coagulation Monitoring By Pharmacy) 1 each PRN DAILY PRN 04/25/21 13:00 05/02/21 07:36 DC 04/26/21 08:51 1 EACH Info (PHARMACY MONITORING -- do not chart) 1 each PRN DAILY PRN 06/02/21 11:45 Info (Tpn Per Pharmacy) 1 each PRN DAILY PRN 05/22/21 10:00 06/03/21 16:53 1 EACH Insulin Glargine (Lantus Syringe) 20 unit BID 05/31/21 09:00 06/03/21 20:22 20 UNIT Insulin Human Lispro (HumaLOG) 0-5 UNITS Q6HRS 05/03/21 18:00 06/04/21 00:27 2 UNITS Labetalol HCl (Normodyne Iv Push) 20 mg PRN Q2HR PRN 05/01/21 12:30 05/27/21 15:43 20 MG Lidocaine HCl (Buffered Lidocaine 1%) 6 ml 1X ONCE 06/04/21 09:30 06/04/21 09:31 DC 06/04/21 09:34 2 ML Lidocaine HCl (Lidocaine Pf 2% Vial) 5 ml STK-MED ONCE 05/15/21 07:53 05/15/21 07:53 DC Linezolid/Dextrose 300 ml @ 300 mls/hr Q12HR 05/31/21 09:00 UNV Lorazepam (Ativan Inj) 0.25 mg PRN Q4HRS PRN 05/21/21 09:00 06/02/21 04:30 0.25 MG Magnesium Sulfate 50 ml @ 25 mls/hr 1X ONCE 06/02/21 08:45 06/02/21 10:44 DC 06/02/21 09:53 25 MLS/HR Meropenem 500 mg/ Sodium Chloride 50 ml @ 100 mls/hr DAILY 05/23/21 09:00 05/25/21 11:55 DC 05/25/21 07:42 100 MLS/HR Metoprolol Tartrate (Lopressor Vial) 5 mg Q6HRS 04/25/21 18:00 06/04/21 05:47 5 MG Metronidazole 100 ml @ 100 mls/hr Q12HR 05/30/21 09:00 06/04/21 08:14 100 MLS/HR Micafungin Sodium 100 mg/Dextrose 100 ml @ 100 mls/hr Q24H 06/02/21 09:00 06/03/21 11:46 100 MLS/HR Midazolam HCl (Versed) 5 mg 1X ONCE 05/24/21 15:15 05/24/21 15:16 DC 05/24/21 15:20 5 MG Montelukast Sodium (Singulair) 10 mg HS 04/24/21 21:00 05/23/21 19:58 10 MG Multi-Ingred Cream/Lotion/Oil/ Oint (Artificial Tears Eye Ointment) 1 danielito PRN Q1HR PRN 05/07/21 16:00 05/10/21 20:51 1 DANIELITO Nicardipine HCl 50 mg/Sodium Chloride 250 ml @ 25 mls/hr CONT PRN 05/06/21 18:45 05/20/21 19:47 37.5 MLS/HR Norepinephrine Bitartrate 8 mg/ Dextrose 258 ml @ 25.852 mls/ hr CONT PRN 05/02/21 21:00 05/09/21 06:10 DC 05/02/21 21:22 25.852 MLS/HR Nystatin (Nystop) 1 danielito BID 05/16/21 21:00 06/03/21 20:21 1 DANIELITO Ondansetron HCl (Zofran) 4 mg STK-MED ONCE 05/15/21 07:53 05/15/21 07:53 DC Pantoprazole Sodium (PROTONIX VIAL for IV PUSH) 40 mg DAILYAC 04/26/21 09:30 06/03/21 09:21 40 MG Phenylephrine HCl (PHENYLEPHRINE in 0.9% NACL PF) 1 mg STK-MED ONCE 05/15/21 07:51 05/15/21 07:51 DC Potassium Bicarbonate (Potassium Effervescent Tablet) 40 meq 1X ONCE 05/19/21 08:30 05/19/21 08:31 DC 05/19/21 08:50 40 MEQ Potassium Chloride/Water 100 ml @ 100 mls/hr Q1H 05/23/21 10:45 05/23/21 12:44 DC 05/23/21 13:17 100 MLS/HR Potassium Phosphate 10 mmol/ Sodium Chloride 103.3333 ml @ 51.667 m... Q2H 06/01/21 12:00 06/01/21 15:59 DC 06/01/21 13:24 51.667 MLS/HR Potassium Phosphate 13.6 mmol/Sodium Chloride 254.5333 ml @ 127.... 1X ONCE 05/31/21 12:00 05/31/21 13:59 DC 05/31/21 12:08 127.267 MLS/HR Potassium Phosphate 20 mmol/ Sodium Chloride 256.6667 ml @ 62.5 mls/hr 1X ONCE 05/13/21 12:15 05/13/21 16:21 UNV Potassium Phosphate 30 mmol/ Sodium Chloride 260 ml @ 62.5 mls/hr 1X ONCE 05/13/21 12:15 05/13/21 16:24 UNV Prochlorperazine Edisylate (Compazine) 5 mg PACU PRN PRN 05/15/21 06:00 05/16/21 05:59 DC Propofol 100 ml @ 4.185 mls/ hr CONT PRN 06/02/21 09:30 06/04/21 05:47 12.555 MLS/HR Propofol (Diprivan) 200 mg STK-MED ONCE 05/15/21 07:53 05/15/21 07:53 DC Remdesivir 100 mg/ Sodium Chloride 230 ml @ 460 mls/hr Q24H 04/26/21 17:30 04/29/21 17:59 DC 04/29/21 13:51 460 MLS/HR Remdesivir 200 mg/ Sodium Chloride 210 ml @ 210 mls/hr 1X ONCE 04/25/21 17:30 04/25/21 18:29 DC 04/25/21 17:09 210 MLS/HR Ringer's Solution 1,000 ml @ 30 mls/hr Q24H 05/15/21 06:00 05/15/21 17:59 DC 05/15/21 07:04 30 MLS/HR Rocuronium [place] (Zemuron) 50 mg STK-MED ONCE 05/15/21 07:06 05/15/21 07:07 DC Sodium Bicarbonate (Sodium Bicarb Adult 8.4% Syr) 50 meq 1X ONCE 04/27/21 09:45 04/27/21 09:46 DC 04/27/21 09:50 50 MEQ Sodium Chloride (Normal Saline Flush) 10 ml 1X PRN PRN 06/01/21 08:00 06/02/21 07:59 DC Sodium Chloride 90 meq/Potassium Chloride 25 meq/ Magnesium Sulfate 10 meq/Calcium Gluconate 5 meq/ Multivitamins 5 ml/Zinc/Copper/ Manganese/ Selenium 1 ml/ Total Parenteral Nutrition/Amino Acids/Dextrose/ Fat Emulsion Intravenous 1,080 ml @ 45 mls/hr TPN CONT 05/22/21 22:00 05/23/21 21:59 DC 05/22/21 21:22 45 MLS/HR Sodium Chloride 90 meq/Potassium Chloride 30 meq/ Potassium Phosphate 13.6 mmol/Magnesium Sulfate 10 meq/ Multivitamins 5 ml/Zinc/Copper/ Manganese/ Selenium 1 ml/ Total Parenteral Nutrition/Amino Acids/Dextrose/ Fat Emulsion Intravenous 1,200 ml @ 50 mls/hr TPN CONT 06/01/21 22:00 06/02/21 21:59 DC 06/01/21 21:33 50 MLS/HR Sodium Chloride 90 meq/Potassium Chloride 30 meq/ Potassium Phosphate 13.6 mmol/Magnesium Sulfate 12 meq/ Multivitamins 5 ml/Zinc/Copper/ Manganese/ Selenium 1 ml/ Total Parenteral Nutrition/Amino Acids/Dextrose 1,200 ml @ 50 mls/hr TPN CONT 06/03/21 22:00 06/04/21 21:59 06/03/21 21:19 50 MLS/HR Sodium Chloride 90 meq/Potassium Chloride 30 meq/ Potassium Phosphate 13.6 mmol/Magnesium Sulfate 12 meq/ Multivitamins 5 ml/Zinc/Copper/ Manganese/ Selenium 1 ml/ Total Parenteral Nutrition/Amino Acids/Dextrose/ Fat Emulsion Intravenous 1,200 ml @ 50 mls/hr TPN CONT 06/02/21 22:00 06/03/21 21:59 DC 06/02/21 21:31 50 MLS/HR Sodium Chloride 90 meq/Potassium Chloride 50 meq/ Magnesium Sulfate 10 meq/Calcium Gluconate 5 meq/ Multivitamins 5 ml/Zinc/Copper/ Manganese/ Selenium 1 ml/ Total Parenteral Nutrition/Amino Acids/Dextrose/ Fat Emulsion Intravenous 960 ml @ 40 mls/hr TPN CONT 05/27/21 22:00 05/28/21 21:59 DC 05/27/21 22:03 40 MLS/HR Sodium Chloride 90 meq/Potassium Chloride 50 meq/ Potassium Phosphate 5 mmol/ Magnesium Sulfate 10 meq/Calcium Gluconate 5 meq/ Multivitamins 5 ml/Zinc/Copper/ Manganese/ Selenium 1 ml/ Total Parenteral Nutrition/Amino Acids/Dextrose/ Fat Emulsion Intravenous 1,200 ml @ 50 mls/hr TPN CONT 05/30/21 22:00 05/31/21 21:59 DC 05/30/21 21:57 50 MLS/HR Sodium Phosphate 15 mmol/Dextrose 105 ml @ 105 mls/hr 1X ONCE 05/29/21 11:00 05/29/21 11:59 DC 05/29/21 11:53 105 MLS/HR Sodium Phosphate 15 mmol/Sodium Chloride 105 ml @ 105 mls/hr 1X ONCE 05/29/21 11:45 05/29/21 12:44 UNV Succinylcholine Chloride (Anectine) 200 mg STK-MED ONCE 04/24/21 13:38 04/24/21 13:38 DC Vecuronium [place] (Norcuron Bolus) 6 mg PRN Q6HRS PRN 04/30/21 11:15 05/14/21 09:12 6 MG Lab Laboratory Tests Test 06/03/21 11:52 06/03/21 18:22 06/04/21 00:25 06/04/21 05:58 Glucose (Fingerstick) 188 mg/dL (70-99) 146 mg/dL (70-99) 153 mg/dL (70-99) 147 mg/dL (70-99) Test 06/04/21 06:00 Sodium Level 139 mmol/L (136-145) Potassium Level 3.6 mmol/L (3.5-5.1) Chloride Level 105 mmol/L (98-107) Carbon Dioxide Level 27 mmol/L (21-32) Anion Gap 7 (6-14) Blood Urea Nitrogen 34 mg/dL (8-26) Creatinine 2.2 mg/dL (0.7-1.3) Estimated GFR (Cockcroft-Gault) 35.6 Glucose Level 145 mg/dL (70-99) Calcium Level 7.8 mg/dL (8.5-10.1) Phosphorus Level 2.9 mg/dL (2.6-4.7) Magnesium Level 2.0 mg/dL (1.8-2.4) Results All relevant outside records, renal labs, imaging studies, telemetry/EKG's were reviewed. Justicifation of Admission Dx: Justifications for Admission: Justification of Admission Dx: Yes Aspiration Pneumonia: Hemodynamic Instability JASMEET LAM MD Jun 04, 2021 09:46
[2021-06-04] MEDS: MICAFUNGIN 100 MG in IV DEXTROSE 5% 100ML 100 ML IV SCH (09:54)
[2021-06-04] MEDS: PANTOPRAZOLE IV PUSH 40 MG VIAL. IVP SCH (09:54)
[2021-06-04] MEDS: NYSTATIN TOPICAL POWDER 15GM BOTTLE. TP SCH ×2 (09:56→20:32)
[2021-06-04] MEDS: INSULIN GLARGINE SYRINGE. SQ SCH ×2 (09:56→20:32)
--- NOTE | 2021-06-04 10:04 | RAD ---
EXAMINATION: NON-TUNNELED CENTRAL VENOUS CATHETER PLACEMENT (with ultrasound guidance). (CPT 35390, 3 6556). Site ID: [id number] HISTORY: Sepsis, need to remove the right central line and dialysis catheter and replaced with a left -sided central line SEDATION: None. CONSENT: Informed consent was obtained. The risks, benefits, potential complications and alternatives were reviewed and all questions answered. ESTIMATED BLOOD LOSS: Less than 20 mL. COMPLICATIONS: None. PROCEDURE: Prior to beginning the procedure, [place] Protocol was used to confirm the patient's identity and p lanned procedure. Maximum sterile barriers including cap, mask, hand hygiene, sterile gloves, steril e gown, large sterile drape and cutaneous antisepsis were used. The skin was sterilely prepped, draped utilizing maximal barrier technique and then infiltrated with lidocaine. The left IJ vein was evaluated by ultrasound. An image of the patent vessel was recorded and saved t o PACS. After sterile prep, this vessel was accessed with a micropuncture needle using real-time ult rasound guidance. A guidewire and catheter were then passed. After dilating the tract, a central venous catheter was inserted over a guidewire. The catheter was flushed and secured in place. A sterile dressing was applied. FINDINGS: Ultrasound demonstrates a patent left IJ vein. No immediate complications. IMPRESSION: 1. Successful non-tunneled triple-lumen central venous catheter placement. 2. Confirmation of good catheter tip position around the cavoatrial junction with a chest x-ray is pe rformed and the catheter can be used. Electronically signed by: Ayden Garg MD (06/04/2021 10:01 AM) [id number]
--- NOTE | 2021-06-04 10:04 | RAD ---
EXAMINATION: NON-TUNNELED CENTRAL VENOUS CATHETER PLACEMENT (with ultrasound guidance). (CPT 38332, 3 6556). Site ID: [id number] HISTORY: Sepsis, need to remove the right central line and dialysis catheter and replaced with a left -sided central line SEDATION: None. CONSENT: Informed consent was obtained. The risks, benefits, potential complications and alternatives were reviewed and all questions answered. ESTIMATED BLOOD LOSS: Less than 20 mL. COMPLICATIONS: None. PROCEDURE: Prior to beginning the procedure, [place] Protocol was used to confirm the patient's identity and p lanned procedure. Maximum sterile barriers including cap, mask, hand hygiene, sterile gloves, steril e gown, large sterile drape and cutaneous antisepsis were used. The skin was sterilely prepped, draped utilizing maximal barrier technique and then infiltrated with lidocaine. The left IJ vein was evaluated by ultrasound. An image of the patent vessel was recorded and saved t o PACS. After sterile prep, this vessel was accessed with a micropuncture needle using real-time ult rasound guidance. A guidewire and catheter were then passed. After dilating the tract, a central venous catheter was inserted over a guidewire. The catheter was flushed and secured in place. A sterile dressing was applied. FINDINGS: Ultrasound demonstrates a patent left IJ vein. No immediate complications. IMPRESSION: 1. Successful non-tunneled triple-lumen central venous catheter placement. 2. Confirmation of good catheter tip position around the cavoatrial junction with a chest x-ray is pe rformed and the catheter can be used. Electronically signed by: Ayden Garg MD (06/04/2021 10:01 AM) [id number]
--- NOTE | 2021-06-04 10:26 | PDOC ---
[employer] PROGRESS NOTE Date of Service DOS: DATE: 06/04/21 TIME: 10:21 Chief Complaint Chief Complaint Respiratory failure requiring intubation COVID-19 Acute [place] A. fib SIRS Hypertension with hypertensive urgency Hyperlipidemia CKD Diabetes History of bilateral subclavian stenosis History of marijuana use Severe protein calorie malnutrition Trach placed on May 15 GI consulted for PEG evaluation --> patient with a lot of vomiting yesterday thus current NG tube to low intermittent suction Anemia secondary to acute blood loss, possible multiple lab draws and related to advanced CKD Positive yeast on 1 out of 4 bottles on blood cultures History of Present Illness History of Present Illness No overnight events afebrile. Sedated on propofol and Precedex. On vent with tracheostomy PEEP 5 FiO2 40%. Being treated for fungemia and receiving TPN. Left IJ CVC functioning well. HD catheter right. A total of 31 minutes of critical care time was spent in reviewing chart, labs, and images. Discussed with RN and SW. 06/03: No acute events overnight. Left IJ placed by IR. Defer to ID for antibiotic management for cultures of the catheter tip and yeast. 06/02/2021 No acute events overnight. Patient saturating 100% on trach collar. Patient did have a fever low-grade of 100.3. Yeast did grow on 1 of 4 bottles on blood cultures. Plan to remove central line and dialysis catheter. Family consi deration for tunneled catheterization possibly hold. Micafungin was started per ID. Patient's chart, labs, images were reviewed and discussed with RN 06/01/2021 No acute events overnight. Patient saturating well on trach collar. Patient seen and examined bedside and on HD. Hemoglobin trended down from 8.4-7.3. Afebrile in the last 24 hours. Patient's chart, labs, images were reviewed and discussed with RN A total of 36 minutes of critical care time was spent in reviewing chart, labs, and images. Discussed with RN and SW. 05/31/2021 No acute events overnight. Patient saturating 100% on trach collar. Hemoglobin improved after 1 unit PRBC transfusion to 8.4. Patient is currently undergoing dialysis and his labs have been stable. Patient's chart, labs, images were reviewed and discussed with RN A total of 38 minutes of critical care time was spent in reviewing chart, labs, and images. Discussed with RN and PATTI. 05/30/2021 No acute events overnight. Patient doing well on trach collar. Hemoglobin de creased down to 6.7 pending 1 unit PRBC transfusion. Restarted on linezolid and Flagyl and cefepime. Pending PICC placement and central line IJ removal. Patient's chart, labs, images were reviewed and discussed with RN 05/29/2021 No acute events or night. Patient tolerating trach collar humidified. Saturating at 99%. Pending PICC line placement and IJ central line removal. P er ID. Possibly in not needing HD. Making urine adequately with Lasix as needed. Patient's chart, labs, images were reviewed and discussed with RN A total of 34 minutes of critical care time was spent in reviewing chart, labs, and images. Discussed with RN and SW. 05/28/2021 No acute events overnight. Patient doing well on trach with settings of 40% FiO2 and PEEP of 8. Pending PEG placement after ileus is resolved will defer this to GI for timing of PEG placement.. Also pending tunneled catheter carol ann cement for dialysis. Patient's chart, labs, images were reviewed and discussed with RN A total of 31 minutes of critical care time was spent in reviewing chart, labs, and images. Discussed with RN and SW. 05/27/2021: Afebrile. On vent with FiO2 40%, PEEP 5. Hemoglobin remains stable at 7.2 today; continue to trend. WBC 13.4. Kidney function appears to be stabilized. LTAC transfer is pending PEG tube placement. Off meropenem; will continue to monitor. Kidney function appears to be stable. Critical care time 30 minutes spent reviewing charts, reviewing labs, reviewing imaging, discussion with RN. 05/26/2021: Afebrile. On vent with FiO2 40%, PEEP 5. Hemoglobin 7.3 yesterday, and hemoglobin 7.2 today; continue to trend. Leukocytosis slightly improved, WBC 12.9 today. Has been accepted at [facility]; transfer pending, but will need PEG tube placement prior. Critical care time 30 minutes spent reviewing charts, reviewing labs, reviewing imaging, discussion with RN. 05/25/2021: Afebrile. On vent with FiO2 40%, PEEP 5. Hemoglobin 8.6 yesterday, hemoglobin 7.3 today. Reportedly had HD yesterday. Continue IV antibiotics, per ID; WBC possibly reactive to ileus. Has been accepted at [facility]; transfer pending, but will need PEG tube placement prior. Critical care time 30 minutes spent reviewing charts, reviewing labs, reviewing imaging, discussion with RN. 05/24/2021: No acute events overnight. Afebrile. NG tube output has decreased. Kidney function appears stable. Continue IV antibiotics, per ID. Patient has been accepted to [facility], pending insurance authorization. Critical care time 30 minutes spent reviewing charts, reviewing labs, reviewing imaging, discussion with RN. 05/23/2021: Afebrile. On vent with FiO2 40%, PEEP 5. NG tube for 635 mL out overnight. Continue NG tube to suction. HD per nephrology. Continue IV antibiotics, per ID. Critical care time 30 minutes spent reviewing charts, reviewing labs, reviewing imaging, discussion with RN. 05/22/2021: Afebrile. On vent with FiO2 40%, PEEP 5. Continues to have excessive NG output. Continue NG tube to suction for now; PEG on hold for now. Continue hemodialysis, per nephrology. Continue IV antibiotics, per ID. Social work helping with discharge planning to LTACH likely in the near future after PEG is placed. Critical care time 30 minutes spent reviewing charts, reviewing labs, reviewing imaging, discussion with RN. 05/21/2021: Afebrile, no acute events overnight. Remains on vent, FiO2 40%, PEEP 5. S/P tracheostomy on 05/15/2021. KUB on 05/19/2021 consistent with ileus. Per GI, continue NG tube to suction and parenteral nutrition for now. Continue IV antibiotics, per ID. Continue hemodialysis, per nephrology. Continue supportive care. Critical care time 30 minutes spent reviewing charts, reviewing imaging, reviewing labs, and discussed with RN. 05/20/21 Patient seen and examined at bedside. Again had multiple bouts of vomiting yesterday. GI continuing to follow for PEG evaluation although on hold right now due to persistent vomiting. Leukocytosis does persist but patient afebrile. Plan of care discussed with bedside RN 05/19/21 Patient seen and examined at bedside. Apparently had a fair bit of vomiting overnight. GI following for PEG evaluation. Otherwise patient remained stable. Plan of care discussed with bedside nurse. 05/18/21 Patient seen and examined at bedside. Attempting to increase tube feeds, GI consulted for PEG evaluation. Otherwise no major clinical changes. Continue to wean sedation. Plan of care discussed with bedside nurse. 05/17/21 Patient seen and examined at bedside. Attempting to wean sedation. Patient with some diarrhea. Per infectious disease will give erythromycin eye ointment for eye lesions. Nephro and pulm also following. Continue sedation weaning, plan of care discussed with bedside nurse. 05/16/21 Patient seen and examined at bedside. Underwent tracheostomy yesterday today tolerated well. When seen this morning patient is still notably sedated respiratory status is stable. Continue antibiotics and supportive measures. Plan of care discussed with bedside nurse. Attempt to wean sedation. 05/15/21 Patient seen and examined at bedside Remains intubated and sedated planning for tracheostomy today Continue current respiratory support; continue antibiotics, continue sedation Follow recommendations of pulmonary, renal, and infectious disease Plan of care discussed with bedside nurse Will follow up with patient after surgery today 05/14/21 Patient seen and examined at bedside Remains intubated and sedated planning for tracheostomy tomorrow Continue current respiratory support; continue antibiotics, continue sedation Follow recommendations of pulmonary, renal, and infectious disease Plan of care discussed with bedside nurse 05/13/2021 did not tolerate sedation vacation 05/11/2021, profoundly hypertensive ABG/CXR--changes as needed Continue iv cefepime , add zyvox, sputum culture VENT [id number]%, 5 of PEEP Mild pulmonary edema with new small right pleural effusion and basilar opacities now on cardene gtt prn Patient seen and examined in the [place] [address] ICU remains mechanically ventilated ILDA on CKD - ATN 2/2 sepsis/ Hypotension,UOP good,on IV Lasix ; requiring dialysis, Sedated with propofol Dex and fentanyl Chart reviewed Discussed with RN He remains critically ill intubated/sedated cont cardene gtt not able to tolerate PS trial 05/06/21 Change central line and send cath tip for cultures. 05-09 C. difficile PCR ADELSO AVILA MD ORDERED: BCULT Procedure Result BLOOD CULTURE Final NO GROWTH AFTER 5 DAYS JONES FISHMAN MD, CHRISTOPHER S MD BLOOD CULTURE Preliminary NO GROWTH AFTER 4 DAYS 37 min cc time 05/12/2021 Continue iv cefepime , add zyvox, sputum culture VENT [id number]%, 5 of PEEP Mild pulmonary edema with new small right pleural effusion and basilar opacities now on cardene gtt prn Patient seen and examined in the [place] [address] ICU remains mechanically ventilated ILDA on CKD - ATN 2/2 sepsis/ Hypotension,UOP good,on IV Lasix ; requiring dialysis, Sedated with propofol Dex and fentanyl Chart reviewed Discussed with RN He remains critically ill intubated/sedated cont cardene gtt not able to tolerate PS trial 05/06/21 Change central line and send cath tip for cultures. 05-09 C. difficile PCR JONES FISHMAN MD, CHRISTOPHER S MD SISILLO, SABATO MD ORDERED: BCULT Procedure Result - BLOOD CULTURE Preliminary NO GROWTH AFTER 2 DAYS BLOOD CULTURE Preliminary NO GROWTH AFTER 4 DAYS 33 min cc time 05/11/2021 Continue iv cefepime , add zyvox, sputum culture VENT [id number]%, 5 of PEEP Mild pulmonary edema with new small right pleural effusion and basilar opacities now on cardene gtt prn Patient seen and examined in the [facility] remains mechanically ventilated ILDA on CKD - ATN 2/2 sepsis/ Hypotension,UOP good,on IV Lasix ; requiring dialysis, Sedated with propofol Dex and fentanyl Chart reviewed Discussed with RN He remains critically ill intubated/sedated cont cardene gtt not able to tolerate PS trial 05/06/21 Change central line and send cath tip for cultures. 05-09 C. difficile PCR JONES FISHMAN MD, CHRISTOPHER S MD SISILLO, SABATO MD ORDERED: BCULT Procedure Result BLOOD CULTURE Preliminary NO GROWTH AFTER 2 DAYS BLOOD CULTURE Preliminary NO GROWTH AFTER 4 DAYS 36 min cc time 05/10/2021 VENT [id number]%, 5 of PEEP Mild pulmonary edema with new small right pleural effusion and basilar opacities now on cardene gtt prn Patient seen and examined in the [place] [address] ICU remains mechanically ventilated ILDA on CKD - ATN 2/2 sepsis/ Hypotension,UOP good,on IV Lasix ; requiring dialysis, Sedated with propofol Dex and fentanyl Chart reviewed Discussed with RN He remains critically ill intubated/sedated cont cardene gtt not able to tolerate PS trial 05/06/21 Change central line and send cath tip for cultures. 05-09 C. difficile PCR JONES FISHMAN MD,ADELSO DASILVA MD, MD ORDERED: BCULT Procedure Result BLOOD CULTURE Preliminary NO GROWTH AFTER 2 DAYS BLOOD CULTURE Preliminary NO GROWTH AFTER 4 DAYS 33 min cc time 05/09/2021 VENT %, 5 of PEEP Mild pulmonary edema with new small right pleural effusion and basilar opacities now on cardene gtt prn Patient seen and examined in the [id number] ICU remains mechanically ventilated ILDA on CKD - ATN 2/2 sepsis/ Hypotension,UOP good,on IV Lasix ; requiring dialysis, Sedated with propofol Dex and fentanyl Chart reviewed Discussed with RN He remains critically ill intubated/sedated cont cardene gtt not able to tolerate PS trial 05/06/21 Change central line and send cath tip for cultures. 05-09 C. difficile PCR JONES FISHMAN MD,ADELSO DASILVA MD, MD ORDERED: BCULT Procedure Result BLOOD CULTURE Preliminary NO GROWTH AFTER 2 DAYS BLOOD CULTURE Preliminary NO GROWTH AFTER 4 DAYS 37 min cc time 05/08/2021 Currently on 40%, 5 of PEEP now on cardene gtt Patient seen and examined in the [facility] remains mechanically ventilated ILDA on CKD - ATN 2/2 sepsis/ Hypotension,UOP good,on IV Lasix ; requiring dialysis, AC/20/500/40 percent with 5 of PEEP Sedated with propofol Dex and fentanyl Chart reviewed Discussed with RN He remains critically ill intubated/sedated cont cardene gtt not able to tolerate PS trial 05/06/21 JONES FISHMAN MD,ADELSO DASILVA MD, MD ORDERED: BCULT Procedure Result BLOOD CULTURE Preliminary NO GROWTH AFTER 2 DAYS BLOOD CULTURE Preliminary NO GROWTH AFTER 4 DAYS 33 min cc time 05/07/2021 Patient seen and examined in the [place] [address] ICU He remains mechanically ventilated ILDA on CKD - ATN 2/2 sepsis/ Hypotension,UOP good,on IV Lasix ; requiring dialysis, AC/20/500/40 percent with 5 of PEEP Sedated with propofol Dex and fentanyl Chart reviewed Discussed with RN He remains critically ill intubated/sedated cont cardene gtt not able to tolerate PS trial 05/06/21 JONES FISHMAN MD,ADELSO DASILVA MD, MD ORDERED: BCULT Procedure Result BLOOD CULTURE Preliminary NO GROWTH AFTER 2 DAYS 36 min cc time 05/06/2021 Patient seen and examined in the [place] [address] ICU He remains mechanically ventilated AC/20/500/40 percent with 5 of PEEP Sedated with propofol Dex and fentanyl Chart reviewed Discussed with RN He remains critically ill 05/05/2020 Patient seen and examined in the [place] [address] ICU He remains on the vent AC/20/500/40 percent with 5 of PEEP Discussed with RN Chart reviewed Has SCDs in place Nieves to bedside drainage He remains critically ill 05/04/2021 Patient seen and examined in the [place] [address] ICU Still intubated Sedated with propofol and fentanyl AC/20/500/70 percent with 5 of PEEP On dialysis currently Has SCDs in Nieves to bedside drainage Discussed with RN Chart reviewed 05/03/2021 Patient seen and examined in the [place] [address] ICU He is still intubated AC/20/500/70 percent with 5 of PEEP Has SCDs in place Nieves to bedside drainage Sedated with fentanyl Versed and propofol Discussed are Chart reviewed Remains critically ill 05/02/2021 Patient seen and examined in the [place] [address] ICU He is sedated with propofol fentanyl and Versed Ventilator settings as follow AC/20/500/40 percent with 5 of PEEP Has Nieves to bedside drainage Chart reviewed Discussed with RN He remains critically ill 05/01/2021 Patient seen and examined in the [place] [address] ICU He is still intubated AC/20/500/40 percent with 5 of PEEP In A. fib Sedated with propofol fentanyl and Versed Has a heparin drip Missy with RN Chart reviewed He remains critically 04/30/2020 Patient seen and examined in the [place] [address] ICU He remains on the vent AC/20/500/40 5% with 5 PEEP Currently on dialysis Has OG feeds running Has a Nieves to bedside drainage Sedated with propofol and fentanyl Reviewed chart Discussed with RN He remains critically ill Mr Cunha is a 75 yo male w/ PMHx CAD, HTN, Hyperlipidemia, subclavian steel syndrome, subclavian stenosis s/p left subclavian sent placement complicated by retroperitoneal hematoma s/p evacuation in 08/2015), asthma, BART, CKD, DM2 who presented from home with home health care noted that he was short of breath and valverde with O2 saturations less than 89% as low as 84% not improved with nasal cannulated oxygen placed on CPAP and brought to ED for further care. He was just discharged from the hospital a week ago on April 19, 2021 for abdominal pain and was going for further cardiac testing with outpatient stress testing scheduled on May 28, 2021. Had echocardiogram April 17, 2021 with normal-appearing EF with moderate concentric LVH no significant valvular abnormalities. WBC 20, Hb 10.7, platelets 268, NA 140, K3.8, BUN 21, CR 2.9, glucose 162, albumin 3, troponin I 1.372, NT proBNP 33,318. EKG appears sinus tachycardia rate of 105 bpm with multiple PACs small ST depressions in lead II and V5. TWI in V6. Chest radiograph with diffuse interstitial and alveolar opacities and ET tube 5.8 cm above the leilani. Due to worsening respiratory status ED physician elected to intubate patient. S een postintubation. Blood pressure little low after propofol bolus, but improved. Significant white frothy sputum per ET tube. Admitted to ICU for further care 04/29/2021: Afebrile, remains on vent at FiO2 45%, PEEP 5. WBC 20.4. Hemodialysis per nephrology. We will continue treatment with empiric antibiotics, remdesivir, and steroids. Continue heparin infusion and supportive care. Critical care time 30 minutes reviewing chart, review labs, review imaging, discussion with RN. 04/28/2021: Afebrile. FiO2 50%, PEEP 5. Nontunneled HD catheter placed yesterday due to worsening kidney function; eGFR 16 (CKD4). Chest x-ray showed unchanged interstitial opacities. Continue empiric antibiotics, steroids, and remdesivir. Continue heparin infusion, and continue to follow cardiology recommendations on new diagnosis of A. fib. Critical care time 30 minutes reviewing chart, review labs, review imaging, discussion with RN. 04/27/2021: Afebrile. On vent with FiO2 50%, PEEP 5. Troponin 2.8 yesterday; probable type II, demand ischemia. New onset A. fib. Continue heparin drip and as needed digoxin, per cardiology. Continue treatment with remdesivir, steroids, and prophylactic antibiotics. CBG 323 this morning; will add basal insulin. Critical care 30 minutes spent reviewing labs, reviewing imaging, reviewing charts, and discussion with RN. 04/26/2021: COVID-19 positive. Febrile overnight that was managed with cooling blankets. On vent with FiO2 50%, PEEP 5. Per cardiology, elevated troponins likely secondary to demand ischemia; continue heparin drip per cardiology. Maintain fluid balance and avoid nephrotoxins. Continue treatment with remdesivir, steroids, and prophylactic antibiotics. 30 minutes critical care time spent reviewing charts, reviewing labs, reviewing imaging, and discussion with RN. 04/25/2021: On vent FiO2 50, PEEP 5. Febrile, T-max 103.3. Patient was initiated on cooling blankets. Procalcitonin 0.13. Continue coverage for hospital-acquired pneumonia with cefepime. MRSA PCR pending. Critical care time 30 minutes spent reviewing charts, reviewing labs, review of imaging, discussion with RN. Vitals/I&O Vitals/I&O: Vital Signs Date Time Temp Pulse Resp B/P (MAP) Pulse Ox O2 Delivery O2 Flow Rate FiO2 06/04/21 09:58 63 20 135/62 (86) 99 Ventilator 06/04/21 08:08 98.3 98.3 I & O 06/03/21 06/03/21 06/04/21 15:00 23:00 07:00 Intake Total 1568.6 ml 942 ml Output Total 150 ml 160 ml 500 ml Balance -150 ml 1408.6 ml 442 ml Physical Exam Physical Exam: GENERAL: Well-developed and well-nourished male, sedated HEENT: Normocephalic, atraumatic, redness and erythema of both eyes improved, NG tube present NECK: right dialysis catheter present clean,central line changed ( 05/11) Trach + HEART: S1, S2. LUNGS: Decreased breath sounds. ABDOMEN: Less distended, bowel sounds present GENITOURINARY: Nieves in place. EXTREMITIES: Edema present. DERMATOLOGIC: Warm, dry, no generalized rash. NEUROLOGIC: Opens eyes PICC line clean General: No acute distress, severe distress, Other (Alert and awake, trach collar site is intact without any infection) Heart: Regular rate, Normal S1, Normal S2 Lungs: Crackles Abdomen: Normal bowel sounds, Other (ND) Extremities: No clubbing, No cyanosis, Other (Lower extremity edema) Skin: No rashes, No breakdown, No significant lesion Labs Labs: Laboratory Tests Test 06/03/21 11:52 06/03/21 18:22 06/04/21 00:25 06/04/21 05:58 Glucose (Fingerstick) 188 mg/dL (70-99) 146 mg/dL (70-99) 153 mg/dL (70-99) 147 mg/dL (70-99) Test 06/04/21 06:00 Sodium Level 139 mmol/L (136-145) Potassium Level 3.6 mmol/L (3.5-5.1) Chloride Level 105 mmol/L (98-107) Carbon Dioxide Level 27 mmol/L (21-32) Anion Gap 7 (6-14) Blood Urea Nitrogen 34 mg/dL (8-26) Creatinine 2.2 mg/dL (0.7-1.3) Estimated GFR (Cockcroft-Gault) 35.6 Glucose Level 145 mg/dL (70-99) Calcium Level 7.8 mg/dL (8.5-10.1) Phosphorus Level 2.9 mg/dL (2.6-4.7) Magnesium Level 2.0 mg/dL (1.8-2.4) Assessment and Plan Assessmemt and Plan Problems Medical Problems: (1) Elevated troponin Status: Acute (2) Person under investigation for COVID-19 Status: Acute (3) Pulmonary edema Status: Acute Comment Review of Relevant I have reviewed the following items juanita (where applicable) has been applied. Medications: Current Medications Medications (Trade) Dose Ordered Sig/Jodie Route PRN Reason Start Time Stop Time Status Last Admin Dose Admin Sodium Chloride 90 meq/Potassium Chloride 30 meq/ Potassium Phosphate 13.6 mmol/Magnesium Sulfate 12 meq/ Multivitamins 5 ml/Zinc/Copper/ Manganese/ Selenium 1 ml/ Total Parenteral Nutrition/Amino Acids/Dextrose 1,200 ml @ 50 mls/hr TPN CONT IV 06/03/21 22:00 06/04/21 21:59 06/03/21 21:19 Lidocaine HCl (Buffered Lidocaine 1%) 6 ml 1X ONCE INJ 06/04/21 09:30 06/04/21 09:31 DC 06/04/21 09:34 Justifications for Admission General Conditions Altered mental status?: Yes Justification of admission: Patient has tachycardia (> 100 beats per minute) or hypotension (SBP < 90 mm Hg) leading to inadequate systemic perfusion as indicated by severe/persistent altered mental status. Other Justification BRIAN MONTES MD Jun 04, 2021 10:26
--- NOTE | 2021-06-04 10:51 | PDOC ---
PULMONARY PROGRESS NOTES DATE: 06/04/21 TIME: 10:50 Subjective on assist control mode, peep 5 fio2 40% Awake. Not in any obvious respiratory distress. ileus tpn Vitals Vital Signs Date Time Temp Pulse Resp B/P (MAP) Pulse Ox O2 Delivery O2 Flow Rate FiO2 06/04/21 09:58 63 20 135/62 (86) 99 Ventilator 06/04/21 08:08 98.3 98.3 Comments Tracheostomy ros unable to obtain sedated on vent General: No acute distress HEENT: Other (Trachea midline nc at perrl nose clear neck trach site ok no lad) Lungs: Crackles Cardiovascular: S1, S2 Abdomen: Soft Extremities: No Edema Skin: Warm Labs Laboratory Tests Test 06/02/21 17:13 06/02/21 23:43 06/03/21 06:00 06/03/21 06:25 Glucose (Fingerstick) 168 mg/dL (70-99) 178 mg/dL (70-99) 158 mg/dL (70-99) White Blood Count 12.2 x10^3/uL (4.0-11.0) Red Blood Count 2.65 x10^6/uL (4.30-5.70) Hemoglobin 7.2 g/dL (13.0-17.5) Hematocrit 22.5 % (39.0-53.0) Mean Corpuscular Volume 85 fL (79-100) Mean Corpuscular Hemoglobin 27 pg (25-35) Mean Corpuscular Hemoglobin Concent 32 g/dL (31-37) Red Cell Distribution Width 18.2 % (11.5-14.5) Platelet Count 290 x10^3/uL (140-400) Sodium Level 139 mmol/L (136-145) Potassium Level 3.6 mmol/L (3.5-5.1) Chloride Level 105 mmol/L (98-107) Carbon Dioxide Level 29 mmol/L (21-32) Anion Gap 5 (6-14) Blood Urea Nitrogen 24 mg/dL (8-26) Creatinine 2.0 mg/dL (0.7-1.3) Estimated GFR (Cockcroft-Gault) 39.7 Glucose Level 163 mg/dL (70-99) Calcium Level 7.9 mg/dL (8.5-10.1) Phosphorus Level 2.6 mg/dL (2.6-4.7) Magnesium Level 1.9 mg/dL (1.8-2.4) Test 06/03/21 11:52 06/03/21 18:22 06/04/21 00:25 06/04/21 05:58 Glucose (Fingerstick) 188 mg/dL (70-99) 146 mg/dL (70-99) 153 mg/dL (70-99) 147 mg/dL (70-99) Test 06/04/21 06:00 Sodium Level 139 mmol/L (136-145) Potassium Level 3.6 mmol/L (3.5-5.1) Chloride Level 105 mmol/L (98-107) Carbon Dioxide Level 27 mmol/L (21-32) Anion Gap 7 (6-14) Blood Urea Nitrogen 34 mg/dL (8-26) Creatinine 2.2 mg/dL (0.7-1.3) Estimated GFR (Cockcroft-Gault) 35.6 Glucose Level 145 mg/dL (70-99) Calcium Level 7.8 mg/dL (8.5-10.1) Phosphorus Level 2.9 mg/dL (2.6-4.7) Magnesium Level 2.0 mg/dL (1.8-2.4) Laboratory Tests Test 06/03/21 11:52 06/03/21 18:22 06/04/21 00:25 06/04/21 05:58 Glucose (Fingerstick) 188 mg/dL (70-99) 146 mg/dL (70-99) 153 mg/dL (70-99) 147 mg/dL (70-99) Test 06/04/21 06:00 Sodium Level 139 mmol/L (136-145) Potassium Level 3.6 mmol/L (3.5-5.1) Chloride Level 105 mmol/L (98-107) Carbon Dioxide Level 27 mmol/L (21-32) Anion Gap 7 (6-14) Blood Urea Nitrogen 34 mg/dL (8-26) Creatinine 2.2 mg/dL (0.7-1.3) Estimated GFR (Cockcroft-Gault) 35.6 Glucose Level 145 mg/dL (70-99) Calcium Level 7.8 mg/dL (8.5-10.1) Phosphorus Level 2.9 mg/dL (2.6-4.7) Magnesium Level 2.0 mg/dL (1.8-2.4) Medications Active Scripts Medications Dose Route/Sig Max Daily Dose Days Date Category Glyburide 2.5 Mg Tablet 1 Tab PO DAILY 04/19/21 Rx Polyethylene Glycol 3350 17 Gm Powd.pack 17 Gm PO DAILY 04/19/21 Rx Dok (Docusate Sodium) 100 Mg Capsule 100 Mg PO PRN DAILY PRN 04/19/21 Rx Bisacodyl 5 Mg Tablet.dr 5 Mg PO PRN DAILY PRN 04/19/21 Rx Acetaminophen 325 Mg Tablet 650 Mg PO PRN Q4HRS PRN 04/19/21 Rx Aspirin Ec (Aspirin) 81 Mg Tablet.dr 81 Mg PO DAILYWBKFT 04/19/21 Rx Hydralazine Hcl 25 Mg Tablet 25 Mg PO QID 04/19/21 Rx Fenofibrate 54 Mg Tablet 1 Tab PO DAILY 04/17/21 Reported Potassium Chloride (Potassium Chloride) 20 Meq Tablet.er 20 Meq PO DAILY 04/17/21 Reported Coreg (Carvedilol) 12.5 Mg Tablet 37.5 Mg PO BIDWMEALS 04/17/21 Reported Rosuvastatin Calcium 40 Mg Tablet 40 Mg PO QHS 04/17/21 Reported Gabapentin (Gabapentin) 100 Mg Capsule 200 Mg PO BID 04/17/21 Reported Montelukast Sodium Tablet (Montelukast Sodium) 10 Mg Tablet 10 Mg PO HS 04/17/21 Reported Protonix (Pantoprazole Sodium) 20 Mg Tablet.dr 2 Tab PO DAILY 04/17/21 Reported Amlodipine Besylate 5 Mg Tablet 5 Mg PO DAILY 04/17/21 Reported Furosemide 40 Mg Tablet 1 Tab PO DAILY 04/17/21 Reported Proair Hfa Inhaler (Albuterol Sulfate) 8.5 Gm Hfa.aer.ad 2 Puff IH PRN Q4-6HRS PRN 21 04/16/21 Reported Advair 100-50 Diskus (Fluticasone/Salmeterol) 1 Each Disk.w.dev 1 Puff IH BID 04/16/21 Reported Comments Impression . IMPRESSION: 1. Acute hypoxic respiratory failure, multifactorial/COVID-19 viral pneumonia/ARDS, ongoing, intubated 04/25/2021, now status post tracheostomy 05/15/[address] chest with bilateral diffuse interstitial infiltrates without any significant pleural effusion 3. Leukocytosis, sepsis--improved 4. Non-ST segment elevation [place] 5. History of tobacco use, suspect COPD, unknown FEV1 6. Chronic kidney disease.== HD as needed per renal 7. Metabolic acidosis multifactorial 8. Abnormal chest x-ray 9. Hypoglycemia, continue to monitor--- resolved 10. Hypotension, suspect volume deficit,/possible sepsis--- resolved 11. Fever--improved 12. Anemia--improved 13. Atrial fibrillation with rapid ventricular response, currently rate controlled 14. Ileus 15. ? fungemia Plan . Updated 06/04/21 Continue current ventilatory support, 500/40/5 Will initiate trach shield trial after replacement of dialysis catheter. f/u yeast in , Continue cefepime and flagyl, Cont micafungin June 02 DC Zyvox Continue Precedex fentanyl tachypneac propofol added It has been difficult to wean the patient due to nonpulmonary issues such as arrhythmias, worsening hypertension and tachycardia and current ileus. Monitor HGB Follow GI recs-- ileus, PEG tube on hold, Follow nephrology recs-- hemodialysis per nephro Follow infectious disease recommendations for ABX Continue TPN for nutritional support DVT/GI PPX: sq heparin-- on hold D/W RN and RT Pt. is DNR Updated 06/03/21 Continue current ventilatory support, 500/40/5 f/u yeast in , Continue cefepime and flagyl, Cont micafungin June 02 Zyvox Continue Precedex fentanyl tachypneac propofol added It has been difficult to wean the patient due to nonpulmonary issues such as arrhythmias, worsening hypertension and tachycardia and current ileus. Monitor HGB Follow GI recs-- ileus, PEG tube on hold, Follow nephrology recs-- hemodialysis per nephro Follow infectious disease recommendations for ABX Continue TPN for nutritional support DVT/GI PPX: sq heparin-- on hold D/W RN and RT Pt. is DNR Updated 06/02/21 Continue current ventilatory support, 500/40/5 weaning as tolerated Continue Precedex fentanyl tachypneac will add propofol It has been difficult to wean the patient due to nonpulmonary issues such as arrhythmias, worsening hypertension and tachycardia and current ileus. Monitor HGB Follow GI recs-- ileus, PEG tube on hold, Follow nephrology recs-- hemodialysis per nephro Follow infectious disease recommendations for ABX Continue TPN for nutritional support DVT/GI PPX: sq heparin-- on hold D/W RN and RT Pt. is DNR Updated 06/01/21 Continue current ventilatory support, /40/ Continue Precedex for sedation It has been difficult to wean the patient due to nonpulmonary issues such as arrhythmias, worsening hypertension and tachycardia and current ileus. Monitor HGB Follow GI recs-- ileus, PEG tube on hold, Follow nephrology recs--currently on hemodialysis Follow infectious disease recommendations for ABX Continue TPN for nutritional support DVT/GI PPX: sq heparin-- on hold D/W RN and RT Pt. is DNR CC time 30 minutes Updated 05/31/21 Continue current ventilatory support, 40/ Continue Precedex for sedation Monitor HGB Follow GI recs-- ileus, PEG tube on hold, nursing reports 75 cc of NG output Follow nephrology recs--currently on hemodialysis Follow infectious disease recommendations for ABX Continue TPN for nutritional support DVT/GI PPX: sq heparin-- on hold D/W RN and RT Pt. is DNR CC time 30 minutes JONES FISHMAN MD Jun 04, 2021 10:51
--- NOTE | 2021-06-04 11:02 | PDOC ---
Infectious Disease Note Subjective Subjective Pt remains vent dependent HDC/Central line removed Discussed with nursing staff ROS ROS no n/v/d/ Vital Sign Vital Signs Vital Signs Date Time Temp Pulse Resp B/P (MAP) Pulse Ox O2 Delivery O2 Flow Rate FiO2 06/04/21 09:58 63 20 135/62 (86) 99 Ventilator 06/04/21 08:08 98.3 98.3 Physical Exam PHYSICAL EXAM GENERAL: Well-developed and well-nourished male, sedated HEENT: Normocephalic, atraumatic, redness and erythema of both eyes improved, NG tube present NECK: right dialysis catheter present clean,central line changed ( 05/11) Trach + HEART: S1, S2. LUNGS: Decreased breath sounds. ABDOMEN: Less distended, bowel sounds present GENITOURINARY: Nieves in place. EXTREMITIES: Edema present. DERMATOLOGIC: Warm, dry, no generalized rash. NEUROLOGIC: Opens eyes PICC line clean Labs Lab Laboratory Tests Test 06/03/21 11:52 06/03/21 18:22 06/04/21 00:25 06/04/21 05:58 Glucose (Fingerstick) 188 mg/dL (70-99) 146 mg/dL (70-99) 153 mg/dL (70-99) 147 mg/dL (70-99) Test 06/04/21 06:00 Sodium Level 139 mmol/L (136-145) Potassium Level 3.6 mmol/L (3.5-5.1) Chloride Level 105 mmol/L (98-107) Carbon Dioxide Level 27 mmol/L (21-32) Anion Gap 7 (6-14) Blood Urea Nitrogen 34 mg/dL (8-26) Creatinine 2.2 mg/dL (0.7-1.3) Estimated GFR (Cockcroft-Gault) 35.6 Glucose Level 145 mg/dL (70-99) Calcium Level 7.8 mg/dL (8.5-10.1) Phosphorus Level 2.9 mg/dL (2.6-4.7) Magnesium Level 2.0 mg/dL (1.8-2.4) Micro GRAM STAIN EVALUATION Final Final This specimen is of good quality and is acceptable for routine bacterial culture. Culture results to follow. GRAM NEGATIVE RODS:FEW GRAM POSITIVE COCCI:RARE SQUAMOUS EPI CELL:NONE SEEN PMN (WBCs):MANY Unless otherwise specified, Testing Performed by: [facility] [address] [place] [address] For Inquires, the Physician may contact the Microbiology department at [phone] RESPIRATORY CULTURE Preliminary Preliminary No Growth on 05/12/21 at 0900 Unless otherwise specified, Testing Performed by: [facility] [address] [place] [address] For Inquires, the Physician may contact the Microbiology department at [phone] Objective Assessment Fungemia May 30, 2021 RT IJ central line removed cath tip sent for cult 1. Febrile illness resolved 2. Leukocytosis, was on steroids,ileus could contribute,improving 3. COVID-19 pneumonia. 4. Acute hypoxic respiratory failure status post intubation.Now S/P Trach 05/15 Pleural effusion 5. Congestive heart failure, acute on chronic. 6. Acute kidney injury on chronic kidney disease on hemodialysis. 7. Diabetes mellitus 2. 8. Atrial fibrillation. 9. Anemia. 10. Protein-calorie malnutrition. 11. Hypertention 12.Hyponatremia 13. Ileus, Bowel obstruction Peg TF on hold, OG to LIS 14.on PPN 15.Mild to Moderate Pleural effusion 16.Lt eye conjunctivitis resolved Plan Plan of Care f/u yeast in bc Continue cefepime and flagyl Cont micafungin June 02 DC Zyvox Monitor labs and cultures Central line removed, f/u cath tip for culture DC HDC f/u repeat bc from 06/02 Nieves changed 05/30 C. difficile PCR negative Remains critically ill Continue supportive care Prognosis poor Patient's family is deciding whether to go ahead with permacath or not Discussed with nursing staff JAD RIVERO MD Jun 04, 2021 11:02
--- NOTE | 2021-06-04 12:32 | RAD ---
AP chest. HISTORY: Dialysis catheter placement AP view was taken of the chest. There is a right dialysis catheter extending to the superior vena cav a. Left jugular central line is unchanged in the superior vena cava. Tracheostomy tube is unchanged. There are bilateral effusions. There are bilateral diffuse infiltrates. There is no pneumothorax. IMPRESSION: 1. Right jugular dialysis catheter in place. 2. Left central line unchanged. 3. NG tube and tracheostomy tube unchanged. 4. Persistent infiltrates and pleural effusions with little change. Electronically signed by: David Henry MD (06/04/2021 12:29 PM) [facility]
--- NOTE | 2021-06-04 12:43 | PDOC ---
Date of Service: DATE: 06/04/21 TIME: 12:39 Subjective: Subjective: More alert today - indicates pain in abdomen when I palpate. Objective: Objective: D/w nurse - 300cc from NGT in 24 hours, wondering if imaging should be repeated, unclear timing of last stool. New HD cath placed today. Vital Signs: Vital Signs Date Time Temp Pulse Resp B/P (MAP) Pulse Ox O2 Delivery O2 Flow Rate FiO2 06/04/21 12:35 Mechanical Ventilator 06/04/21 11:23 98.1 56 20 117/65 (82) 99 98.1 Labs: Laboratory Tests Test 06/03/21 18:22 06/04/21 00:25 06/04/21 05:58 06/04/21 11:20 Glucose (Fingerstick) 146 mg/dL (70-99) 153 mg/dL (70-99) 147 mg/dL (70-99) 203 mg/dL (70-99) Imaging: CXR 06/04 IMPRESSION: 1. Right jugular dialysis catheter in place. 2. Left central line unchanged. 3. NG tube and tracheostomy tube unchanged. 4. Persistent infiltrates and pleural effusions with little change. PE: GEN: chronically ill LUNGS: trach/vent HEART: RRR ABD: BS+, ?less distention, hernia NEURO/PSYCH: more alert, nods yes when I asked about abdominal pain A/P: COVID-19/resp failure Ileus -- Continue NG suction. ?interval KUB ?repeat suppository - will review w/ Dr. Hauser. Justicifation of Admission Dx: Justifications for Admission: Justification of Admission Dx: Yes Aspiration Pneumonia: Hemodynamic Instability TAIWO THEODORE Jun 04, 2021 12:43
[2021-06-04] MEDS: TPN PER PHARMACY MC PRN (13:09)
--- NOTE | 2021-06-04 13:10 | NUR ---
Pharmacy TPN Dosing Note S: NILAM LAN is a 75 year old M Currently receiving Central Continuous TPN started 05/22/21 B:Pertinent PMH: ILEUS Height: 6 feet, 2 inches Weight: 139.917216 kg Current diet: NPO LABS: Sodium: 139 Potassium: 3.6 Chloride: 105 Calcium: 7.8 Corrected Calcium: 9.72 Magnesium: 2 CO2: 27 SCr: 2.2 Glucose: 145-203 Albumin: 1.6 AST: 27 ALT: 19 TPN FORMULA: TPN TYPE: Central Continuous AMINO ACIDS: 90 gm DEXTROSE: 290 gm SODIUM CHLORIDE: 90 mEq POTASSIUM CHLORIDE: 30 mEq POTASSIUM PHOSPHATE: 13.6 mmol MAGNESIUM: 12 mEq MULTIPLE VITAMIN: 5 ml TRACE ELEMENTS: 1 ml(s) TPN PLAN: Patient remains on propofol. Continue same TPN formula. R: Continue same TPN formula. Will monitor electrolytes, glucose, and tolerance to TPN. ANAYA LYNN RPH, 06/04/21 1310
--- NOTE | 2021-06-04 15:08 | RAD ---
06/04/2021 Procedure: Temporary hemodialysis catheter placement Sterility: All elements of maximal sterile barrier technique including the use of a cap, mask, steril e gown, sterile gloves, large sterile sheet, appropriate hand hygiene, and 2% chlorhexidine for cutan eous antisepsis (or acceptable alternative antiseptic per current guidelines) were followed for this procedure. Consent: The procedure was explained in its entirety to the patient or the patients designated repres entative by a member of the treatment team, including a discussion of the risks, benefits and commonl y accepted alternatives to the procedure, as well as the expected consequences of no therapy whatsoev er. Discussion of the risks included, but was not limited to, those that are most frequent and thos e that are rare but possibly severe or life-threatening, as well as the possibility of unforeseen com plications. Technique and Findings: Following informed consent, the patient was prepped and draped in the usual s terile fashion. Ultrasound interrogation of the right neck revealed patency and compressibility of t he right internal jugular vein. A 21-gauge micropuncture was then used to gain access to this vein u nder ultrasound guidance. A hard copy ultrasound image was recorded. A guidewire was advanced centra lly over which, following dilatation, a temporary dialysis catheter was placed. The new catheter wa s found to flush and aspirate normally. The catheter was secured in place. Sterile dressings were danielito lied. No immediate complications were identified. IMPRESSION: Placement of a right internal jugular temporary dialysis catheter Electronically signed by: Adam Doe MD (06/04/2021 3:05 PM) [id number]
--- NOTE | 2021-06-04 15:55 | NUR ---
SS following up with discharge planning. SS reviewed pt chart and discussed with pt RN. Pt is currently on the vent at 40%. COVID19 recovered. NG in place. TPN. Currently awaiting ileus to resolve. Pt on Fentanyl, Propofol, and Precedex. Hemodialysis. Pt on IV Cefepime and IV Micafungin, and IV Flagyl. Pt accepted at [facility], ; fax [phone], pending insurance approval. Per [facility], ilieus needs to be improved and pt needs to be on less FI02 prior to authorizing. SS will continue to follow for discharge planning.
[2021-06-04] MEDS ORDERED: BISACODYL 10 MG SUPP.RECT. PR ONE (16:30)
[2021-06-04] MEDS: ATORVASTATIN CALCIUM 40 MG TABLET. PO SCH (20:25)
[2021-06-04] MEDS: MONTELUKAST SODIUM 10 MG TABLET. PO SCH (20:25)
[2021-06-04] MEDS ORDERED: [UNRECOGNIZED DRUG - OTHER] IV SCH (22:00)
[2021-06-04] MEDS ORDERED: DEXTROSE 70% IV SCH (22:00)
[2021-06-04] MEDS ORDERED: AMINO ACID IV SCH (22:00)
[2021-06-04] MEDS ORDERED: TOTAL PARENTERAL NUTRITION IV SCH (22:00)
[2021-06-05] VITALS (24 sets, daily range): BP systolic 79–188; BP diastolic 46–97
[2021-06-05] MEDS: DEXMEDETOMIDINE 400 MCG in IV NORMAL SALINE 100ML 96 ML IV PRN ×4 (02:21→21:14)
[2021-06-05] MEDS: METOPROLOL IV PUSH 5 MG/5 ML VIAL. IVP SCH ×4 (05:37→23:53)
[2021-06-05] MEDS: INSULIN LISPRO 300 UNITS/3 ML VIAL. SQ SCH ×4 (05:38→23:55)
[2021-06-05] MEDS: PROPOFOL 100 ML IV PRN ×3 (05:39→23:54)
--- NOTE | 2021-06-05 07:35 | PDOC ---
Infectious Disease Note Subjective Subjective Pt remains vent dependent Discussed with nursing staff ROS ROS no n/v/d/ Vital Sign Vital Signs Vital Signs Date Time Temp Pulse Resp B/P (MAP) Pulse Ox O2 Delivery O2 Flow Rate FiO2 06/05/21 06:00 64 20 141/67 (91) 100 Ventilator 06/05/21 04:00 98.4 98.4 Physical Exam PHYSICAL EXAM GENERAL: Well-developed and well-nourished male, sedated , on vent HEENT: Normocephalic, atraumatic, redness and erythema of both eyes improved, NG tube present NECK: right dialysis catheter present clean,central line changed ( 05/11) Trach + HEART: S1, S2. LUNGS: Decreased breath sounds. ABDOMEN: Less distended, bowel sounds present GENITOURINARY: Nieves in place. EXTREMITIES: Edema present. DERMATOLOGIC: Warm, dry, no generalized rash. NEUROLOGIC: Opens eyes PICC line clean Labs Lab Laboratory Tests Test 06/04/21 11:20 06/04/21 17:55 06/04/21 23:36 06/05/21 05:34 Glucose (Fingerstick) 203 mg/dL (70-99) 205 mg/dL (70-99) 213 mg/dL (70-99) 201 mg/dL (70-99) Micro GRAM STAIN EVALUATION Final Final This specimen is of good quality and is acceptable for routine bacterial culture. Culture results to follow. GRAM NEGATIVE RODS:FEW GRAM POSITIVE COCCI:RARE SQUAMOUS EPI CELL:NONE SEEN PMN (WBCs):MANY Unless otherwise specified, Testing Performed by: [address] [id number] For Inquires, the Physician may contact the Microbiology department at [phone] RESPIRATORY CULTURE Preliminary Preliminary No Growth on 05/12/21 at 0900 Unless otherwise specified, Testing Performed by: [address] [address] For Inquires, the Physician may contact the Microbiology department at [phone] Objective Assessment Fungemia May 30, 2021, C parapsilosis, 06/02 neg RT IJ central line removed cath tip sent for cult 1. Febrile illness resolved 2. Leukocytosis, was on steroids,ileus could contribute,improving 3. COVID-19 pneumonia. 4. Acute hypoxic respiratory failure status post intubation.Now S/P Trach 05/15 Pleural effusion 5. Congestive heart failure, acute on chronic. 6. Acute kidney injury on chronic kidney disease on hemodialysis. 7. Diabetes mellitus 2. 8. Atrial fibrillation. 9. Anemia. 10. Protein-calorie malnutrition. 11. Hypertention 12.Hyponatremia 13. Ileus, Bowel obstruction Peg TF on hold, OG to LIS 14.on PPN 15.Mild to Moderate Pleural effusion 16.Lt eye conjunctivitis resolved Plan Plan of Care d/c antibiotics change aguilar to diflucan Monitor labs and cultures lines removed f/u repeat bc from 06/02 neg Nieves changed 05/30 C. difficile PCR negative Remains critically ill Continue supportive care Prognosis poor Patient's family is deciding whether to go ahead with permacath or not Discussed with nursing staff JAD RIVERO MD Jun 05, 2021 07:35
[2021-06-05] MEDS: ASPIRIN CHEWABLE 81 MG TABLET. PO SCH (08:00)
--- NOTE | 2021-06-05 08:55 | PDOC ---
[employer] PROGRESS NOTE Date of Service DOS: DATE: 06/05/21 TIME: 08:54 Chief Complaint Chief Complaint Respiratory failure requiring intubation COVID-19 Acute NV A. fib SIRS Hypertension with hypertensive urgency Hyperlipidemia CKD Diabetes History of bilateral subclavian stenosis History of marijuana use Severe protein calorie malnutrition Trach placed on May 15 GI consulted for PEG evaluation --> patient with a lot of vomiting yesterday thus current NG tube to low intermittent suction Anemia secondary to acute blood loss, possible multiple lab draws and related to advanced CKD Positive yeast on 1 out of 4 bottles on blood cultures History of Present Illness History of Present Illness Afebrile. Still requiring minimal sedation on propofol and Precedex. Requiring vent support via trach PEEP five FiO2 40%. KUB with less gaseous distention. No BM but bowel sounds are audible. CC time 30 min spent in reviewing chart, labs, and images. Discussed with RN and SW. 06/04: No overnight events afebrile. Sedated on propofol and Precedex. On vent with tracheostomy PEEP 5 FiO2 40%. Being treated for fungemia and receiving TPN. Left IJ CVC functioning well. HD catheter right. 06/03: No acute events overnight. Left IJ placed by IR. Defer to ID for antibiotic management for cultures of the catheter tip and yeast. 06/02/2021 No acute events overnight. Patient saturating 100% on trach collar. Patient did have a fever low-grade of 100.3. Yeast did grow on 1 of 4 bottles on blood cultures. Plan to remove central line and dialysis catheter. Family consideration for tunneled catheterization possibly hold. Micafungin was st arted per ID. Patient's chart, labs, images were reviewed and discussed with RN 06/01/2021 No acute events overnight. Patient saturating well on trach collar. Patient seen and examined bedside and on HD. Hemoglobin trended down from 8.4-7.3. Afebrile in the last 24 hours. Patient's chart, labs, images were reviewed and discussed with RN A total of 36 minutes of critical care time was spent in reviewing chart, labs, and images. Discussed with RN and SW. 05/31/2021 No acute events overnight. Patient saturating 100% on trach collar. Hemoglobin improved after 1 unit PRBC transfusion to 8.4. Patient is currently undergoing dialysis and his labs have been stable. Patient's chart, labs, images were reviewed and discussed with RN A total of 38 minutes of critical care time was spent in reviewing chart, labs, and images. Discussed with RN and SW. 05/30/2021 No acute events overnight. Patient doing well on trach collar. Hemoglobin decreased down to 6.7 pending 1 unit PRBC transfusion. Restarted on linezolid and Flagyl and cefepime. Pending PICC placement and central line IJ removal. Patient's chart, labs, images were reviewed and discussed with RN 05/29/2021 No acute events or night. Patient tolerating trach collar humidified. Saturating at 99%. Pending PICC line placement and IJ central line removal. Per ID. Possibly in not needing HD. Making urine adequately with Lasix as needed. Patient's chart, labs, images were reviewed and discussed with RN A total of 34 minutes of critical care time was spent in reviewing chart, labs, and images. Discussed with RN and SW. 05/28/2021 No acute events overnight. Patient doing well on trach with settings of 40% FiO2 and PEEP of 8. Pending PEG placement after ileus is resolved will defer this to GI for timing of PEG placement.. Also pending tunneled catheter placement for dialysis. Patient's chart, labs, images were reviewed and d iscussed with RN A total of 31 minutes of critical care time was spent in reviewing chart, labs, and images. Discussed with RN and SW. 05/27/2021: Afebrile. On vent with FiO2 40%, PEEP 5. Hemoglobin remains stable at 7.2 today; continue to trend. WBC 13.4. Kidney function appears to be stabilized. LTAC transfer is pending PEG tube placement. Off meropenem; will continue to monitor. Kidney function appears to be stable. Critical care time 30 minutes spent reviewing charts, reviewing labs, reviewing imaging, discussion with RN. 05/26/2021: Afebrile. On vent with FiO2 40%, PEEP 5. Hemoglobin 7.3 yesterday, and hemoglobin 7.2 today; continue to trend. Leukocytosis slightly improved, WBC 12.9 today. Has been accepted at [facility]; transfer pending, but will need PEG tube placement prior. Critical care time 30 minutes spent reviewing charts, reviewing labs, reviewing imaging, discussion with RN. 05/25/2021: Afebrile. On vent with FiO2 40%, PEEP 5. Hemoglobin 8.6 yesterday, hemoglobin 7.3 today. Reportedly had HD yesterday. Continue IV antibiotics, per ID; WBC possibly reactive to ileus. Has been accepted at [facility]; transfer pending, but will need PEG tube placement prior. Critical care time 30 minutes spent reviewing charts, reviewing labs, reviewing imaging, discussion with RN. 05/24/2021: No acute events overnight. Afebrile. NG tube output has decreased. Kidney function appears stable. Continue IV antibiotics, per ID. Patient has been accepted to [facility], pending insurance authorization. Critical care time 30 minutes spent reviewing charts, reviewing labs, reviewing imaging, discussion with RN. 05/23/2021: Afebrile. On vent with FiO2 40%, PEEP 5. NG tube for 635 mL out overnight. Continue NG tube to suction. HD per nephrology. Continue IV antibiotics, per ID. Critical care time 30 minutes spent reviewing charts, reviewing labs, reviewing imaging, discussion with RN. 05/22/2021: Afebrile. On vent with FiO2 40%, PEEP 5. Continues to have excessive NG output. Continue NG tube to suction for now; PEG on hold for now. Continue hemodialysis, per nephrology. Continue IV antibiotics, per ID. Social work helping with discharge planning to LTACH likely in the near future after PEG is placed. Critical care time 30 minutes spent reviewing charts, reviewing labs, reviewing imaging, discussion with RN. 05/21/2021: Afebrile, no acute events overnight. Remains on vent, FiO2 40%, PEEP 5. S/P tracheostomy on 05/15/2021. KUB on 05/19/2021 consistent with ileus. Per GI, continue NG tube to suction and parenteral nutrition for now. Continue IV antibiotics, per ID. Continue hemodialysis, per nephrology. Continue supportive care. Critical care time 30 minutes spent reviewing charts, reviewing imaging, reviewing labs, and discussed with RN. 05/20/21 Patient seen and examined at bedside. Again had multiple bouts of vomiting yesterday. GI continuing to follow for PEG evaluation although on hold right now due to persistent vomiting. Leukocytosis does persist but patient afebrile. Plan of care discussed with bedside RN 05/19/21 Patient seen and examined at bedside. Apparently had a fair bit of vomiting overnight. GI following for PEG evaluation. Otherwise patient remained stable. Plan of care discussed with bedside nurse. 05/18/21 Patient seen and examined at bedside. Attempting to increase tube feeds, GI consulted for PEG evaluation. Otherwise no major clinical changes. Continue to wean sedation. Plan of care discussed with bedside nurse. 05/17/21 Patient seen and examined at bedside. Attempting to wean sedation. Patient with some diarrhea. Per infectious disease will give erythromycin eye ointment for eye lesions. Nephro and pulm also following. Continue sedation weaning, plan of care discussed with bedside nurse. 05/16/21 Patient seen and examined at bedside. Underwent tracheostomy yesterday today tolerated well. When seen this morning patient is still notably sedated respiratory status is stable. Continue antibiotics and supportive measures. Plan of care discussed with bedside nurse. Attempt to wean sedation. 05/15/21 Patient seen and examined at bedside Remains intubated and sedated planning for tracheostomy today Continue current respiratory support; continue antibiotics, continue sedation Follow recommendations of pulmonary, renal, and infectious disease Plan of care discussed with bedside nurse Will follow up with patient after surgery today 05/14/21 Patient seen and examined at bedside Remains intubated and sedated planning for tracheostomy tomorrow Continue current respiratory support; continue antibiotics, continue sedation Follow recommendations of pulmonary, renal, and infectious disease Plan of care discussed with bedside nurse 05/13/2021 did not tolerate sedation vacation 05/11/2021, profoundly hypertensive ABG/CXR--changes as needed Continue iv cefepime , add zyvox, sputum culture VENT %, 5 of PEEP Mild pulmonary edema with new small right pleural effusion and basilar opacities now on cardene gtt prn Patient seen and examined in the [place] [address] ICU remains mechanically ventilated ILDA on CKD - ATN 2/2 sepsis/ Hypotension,UOP good,on IV Lasix ; requiring dialysis, Sedated with propofol Dex and fentanyl Chart reviewed Discussed with RN He remains critically ill intubated/sedated cont cardene gtt not able to tolerate PS trial 05/06/21 Change central line and send cath tip for cultures. 05-09 C. difficile PCR ADELSO AVILA MD ORDERED: BCULT Procedure Result BLOOD CULTURE Final NO GROWTH AFTER 5 DAYS JONES FISHMAN MD, CHRISTOPHER S MD BLOOD CULTURE Preliminary NO GROWTH AFTER 4 DAYS 37 min cc time 05/12/2021 Continue iv cefepime , add zyvox, sputum culture VENT [id number]%, 5 of PEEP Mild pulmonary edema with new small right pleural effusion and basilar opacities now on cardene gtt prn Patient seen and examined in the [place] [address] ICU remains mechanically ventilated ILDA on CKD - ATN 2/2 sepsis/ Hypotension,UOP good,on IV Lasix ; requiring dialysis, Sedated with propofol Dex and fentanyl Chart reviewed Discussed with RN He remains critically ill intubated/sedated cont cardene gtt not able to tolerate PS trial 05/06/21 Change central line and send cath tip for cultures. 05-09 C. difficile PCR JONES FISHMAN MD, CHRISTOPHER S MD SISILLO, SABATO MD ORDERED: BCULT - Procedure Result BLOOD CULTURE Preliminary NO GROWTH AFTER 2 DAYS BLOOD CULTURE Preliminary NO GROWTH AFTER 4 DAYS 33 min cc time 05/11/2021 Continue iv cefepime , add zyvox, sputum culture VENT [id number]%, 5 of PEEP Mild pulmonary edema with new small right pleural effusion and basilar opacities now on cardene gtt prn Patient seen and examined in the [place] [address] ICU remains mechanically ventilated ILDA on CKD - ATN 2/2 sepsis/ Hypotension,UOP good,on IV Lasix ; requiring dialysis, Sedated with propofol Dex and fentanyl Chart reviewed Discussed with RN He remains critically ill intubated/sedated cont cardene gtt not able to tolerate PS trial 05/06/21 Change central line and send cath tip for cultures. 05-09 C. difficile PCR JONES FISHMAN MD, CHRISTOPHER S MD SISILLO, SABATO MD ORDERED: BCULT Procedure Result BLOOD CULTURE Preliminary NO GROWTH AFTER 2 DAYS -- BLOOD CULTURE Preliminary NO GROWTH AFTER 4 DAYS 36 min cc time 05/10/2021 VENT [id number]%, 5 of PEEP Mild pulmonary edema with new small right pleural effusion and basilar opacities now on cardene gtt prn Patient seen and examined in the [place] [address] ICU remains mechanically ventilated ILDA on CKD - ATN 2/2 sepsis/ Hypotension,UOP good,on IV Lasix ; requiring dialysis, Sedated with propofol Dex and fentanyl Chart reviewed Discussed with RN He remains critically ill intubated/sedated cont cardene gtt not able to tolerate PS trial 05/06/21 Change central line and send cath tip for cultures. 05-09 C. difficile PCR JONES FISHMAN MD,ADELSO DASILVA MD, MD ORDERED: BCULT Procedure Result BLOOD CULTURE Preliminary NO GROWTH AFTER 2 DAYS BLOOD CULTURE Preliminary NO GROWTH AFTER 4 DAYS 33 min cc time 05/09/2021 VENT [id number]%, 5 of PEEP Mild pulmonary edema with new small right pleural effusion and basilar opacities now on cardene gtt prn Patient seen and examined in the [place] [address] ICU remains mechanically ventilated ILDA on CKD - ATN 2/2 sepsis/ Hypotension,UOP good,on IV Lasix ; requiring dialysis, Sedated with propofol Dex and fentanyl Chart reviewed Discussed with RN He remains critically ill intubated/sedated cont cardene gtt not able to tolerate PS trial 05/06/21 Change central line and send cath tip for cultures. 05-09 C. difficile PCR JONES FISHMAN MD,ADELSO DASILVA MD, MD ORDERED: BCULT Procedure Result BLOOD CULTURE Preliminary NO GROWTH AFTER 2 DAYS BLOOD CULTURE Preliminary NO GROWTH AFTER 4 DAYS 37 min cc time 05/08/2021 Currently on 40%, 5 of PEEP now on cardene gtt Patient seen and examined in the [facility] remains mechanically ventilated ILDA on CKD - ATN 2/2 sepsis/ Hypotension,UOP good,on IV Lasix ; requiring dialysis, AC/20/500/40 percent with 5 of PEEP Sedated with propofol Dex and fentanyl Chart reviewed Discussed with RN He remains critically ill intubated/sedated cont cardene gtt not able to tolerate PS trial 05/06/21 JONES FISHMAN MD,ADELSO DASILVA MD, MD ORDERED: BCULT Procedure Result BLOOD CULTURE Preliminary NO GROWTH AFTER 2 DAYS BLOOD CULTURE Preliminary NO GROWTH AFTER 4 DAYS 33 min cc time 05/07/2021 Patient seen and examined in the [place] [address] ICU He remains mechanically ventilated ILDA on CKD - ATN 2/2 sepsis/ Hypotension,UOP good,on IV Lasix ; requiring dialysis, AC/20/500/40 percent with 5 of PEEP Sedated with propofol Dex and fentanyl Chart reviewed Discussed with RN He remains critically ill intubated/sedated cont cardene gtt not able to tolerate PS trial 05/06/21 JONES FISHMAN MD,BRIAN AVILA,ADELSO POTTER ORDERED: BCULT Procedure Result BLOOD CULTURE Preliminary NO GROWTH AFTER 2 DAYS 36 min cc time 05/06/2021 Patient seen and examined in the [place] [address] ICU He remains mechanically ventilated AC/20/500/40 percent with 5 of PEEP Sedated with propofol Dex and fentanyl Chart reviewed Discussed with RN He remains critically ill 05/05/2020 Patient seen and examined in the [place] [address] ICU He remains on the vent AC/20/500/40 percent with 5 of PEEP Discussed with RN Chart reviewed Has SCDs in place Nieves to bedside drainage He remains critically ill 05/04/2021 Patient seen and examined in the [place] [address] ICU Still intubated Sedated with propofol and fentanyl AC/20/500/70 percent with 5 of PEEP On dialysis currently Has SCDs in Nieves to bedside drainage Discussed with RN Chart reviewed 05/03/2021 Patient seen and examined in the [place] [address] ICU He is still intubated AC/20/500/70 percent with 5 of PEEP Has SCDs in place Nieves to bedside drainage Sedated with fentanyl Versed and propofol Discussed are Chart reviewed Remains critically ill 05/02/2021 Patient seen and examined in the [place] [address] ICU He is sedated with propofol fentanyl and Versed Ventilator settings as follow AC/20/500/40 percent with 5 of PEEP Has Nieves to bedside drainage Chart reviewed Discussed with RN He remains critically ill 05/01/2021 Patient seen and examined in the [place] [address] ICU He is still intubated AC/20/500/40 percent with 5 of PEEP In A. fib Sedated with propofol fentanyl and Versed Has a heparin drip Missy with RN Chart reviewed He remains critically 04/30/2020 Patient seen and examined in the [place] [address] ICU He remains on the vent AC/20/500/40 5% with 5 PEEP Currently on dialysis Has OG feeds running Has a Nieves to bedside drainage Sedated with propofol and fentanyl Reviewed chart Discussed with RN He remains critically ill Mr Cunha is a 75 yo male w/ PMHx CAD, HTN, Hyperlipidemia, subclavian steel syndrome, subclavian stenosis s/p left subclavian sent placement complicated by retroperitoneal hematoma s/p evacuation in 08/2015), asthma, BART, CKD, DM2 who presented from home with home health care noted that he was short of breath and valverde with O2 saturations less than 89% as low as 84% not improved with nasal cannulated oxygen placed on CPAP and brought to ED for further care. He was just discharged from the hospital a week ago on April 19, 2021 for abdominal pain and was going for further cardiac testing with outpatient stress testing scheduled on May 28, 2021. Had echocardiogram April 17, 2021 with normal-appearing EF with moderate concentric LVH no significant valvular abnormalities. WBC 20, Hb 10.7, platelets 268, NA 140, K3.8, BUN 21, CR 2.9, glucose 162, albumin 3, troponin I 1.372, NT proBNP 33,318. EKG appears sinus tachycardia rate of 105 bpm with multiple PACs small ST depressions in lead II and V5. TWI in V6. Chest radiograph with diffuse interstitial and alveolar opacities and ET tube 5.8 cm above the leilani. Due to worsening respiratory status ED physician elected to intubate patient. Seen postintubation. Blood pressure little low after propofol bolus, but improved. Significant white frothy sputum per ET tube. Admitted to ICU for further care 04/29/2021: Afebrile, remains on vent at FiO2 45%, PEEP 5. WBC 20.4. Hemodialysis per nephrology. We will continue treatment with empiric antibiotics, remdesivir, and steroids. Continue heparin infusion and supportive care. Critical care time 30 minutes reviewing chart, review labs, review imaging, discussion with RN. 04/28/2021: Afebrile. FiO2 50%, PEEP 5. Nontunneled HD catheter placed yesterday due to worsening kidney function; eGFR 16 (CKD4). Chest x-ray showed unchanged interstitial opacities. Continue empiric antibiotics, steroids, and remdesivir. Continue heparin infusion, and continue to follow cardiology recommendations on new diagnosis of A. fib. Critical care time 30 minutes reviewing chart, review labs, review imaging, discussion with RN. 04/27/2021: Afebrile. On vent with FiO2 50%, PEEP 5. Troponin 2.8 yesterday; probable type II, demand ischemia. New onset A. fib. Continue heparin drip and as needed digoxin, per cardiology. Continue treatment with remdesivir, steroids, and prophylactic antibiotics. CBG 323 this morning; will add basal insulin. Critical care 30 minutes spent reviewing labs, reviewing imaging, reviewing charts, and discussion with RN. 04/26/2021: COVID-19 positive. Febrile overnight that was managed with cooling blankets. On vent with FiO2 50%, PEEP 5. Per cardiology, elevated troponins likely secondary to demand ischemia; continue heparin drip per cardiology. Maintain fluid balance and avoid nephrotoxins. Continue treatment with remdesivir, steroids, and prophylactic antibiotics. 30 minutes critical care time spent reviewing charts, reviewing labs, reviewing imaging, and discussion with RN. 04/25/2021: On vent FiO2 50, PEEP 5. Febrile, T-max 103.3. Patient was initiated on cooling blankets. Procalcitonin 0.13. Continue coverage for hospital-acquired pneumonia with cefepime. MRSA PCR pending. Critical care time 30 minutes spent reviewing charts, reviewing labs, review of imaging, discussion with RN. Vitals/I&O Vitals/I&O: Vital Signs Date Time Temp Pulse Resp B/P (MAP) Pulse Ox O2 Delivery O2 Flow Rate FiO2 06/05/21 07:32 100 Ventilator 06/05/21 06:00 64 20 141/67 (91) 06/05/21 04:00 98.4 98.4 I & O 06/04/21 06/04/21 06/05/21 15:00 23:00 07:00 Intake Total 200 ml 966 ml 1149 ml Output Total 135 ml 595 ml 485 ml Balance 65 ml 371 ml 664 ml Physical Exam Physical Exam: GENERAL: Well-developed and well-nourished male, sedated , on vent HEENT: Normocephalic, atraumatic, redness and erythema of both eyes improved, NG tube present NECK: right dialysis catheter present clean,central line changed ( 05/11) Trach + HEART: S1, S2. LUNGS: Decreased breath sounds. ABDOMEN: Less distended, bowel sounds present GENITOURINARY: Nieves in place. EXTREMITIES: Edema present. DERMATOLOGIC: Warm, dry, no generalized rash. NEUROLOGIC: Opens eyes PICC line clean General: No acute distress, severe distress, Other (Alert and awake, trach collar site is intact without any infection) Heart: Regular rate, Normal S1, Normal S2 Lungs: Crackles Abdomen: Normal bowel sounds, Other (ND) Extremities: No clubbing, No cyanosis, Other (Lower extremity edema) Skin: No rashes, No breakdown, No significant lesion Labs Labs: Laboratory Tests Test 06/04/21 11:20 06/04/21 17:55 06/04/21 23:36 06/05/21 05:34 Glucose (Fingerstick) 203 mg/dL (70-99) 205 mg/dL (70-99) 213 mg/dL (70-99) 201 mg/dL (70-99) Assessment and Plan Assessmemt and Plan Problems Medical Problems: (1) Elevated troponin Status: Acute (2) Person under investigation for COVID-19 Status: Acute (3) Pulmonary edema Status: Acute Comment Review of Relevant I have reviewed the following items juanita (where applicable) has been applied. Medications: Current Medications Medications (Trade) Dose Ordered Sig/Jodie Route PRN Reason Start Time Stop Time Status Last Admin Dose Admin Lidocaine HCl (Buffered Lidocaine 1%) 6 ml 1X ONCE INJ 06/04/21 09:30 06/04/21 09:31 DC 06/04/21 09:34 Sodium Chloride 90 meq/Potassium Chloride 30 meq/ Potassium Phosphate 13.6 mmol/Magnesium Sulfate 12 meq/ Multivitamins 5 ml/Zinc/Copper/ Manganese/ Selenium 1 ml/ Total Parenteral Nutrition/Amino Acids/Dextrose 1,200 ml @ 50 mls/hr TPN CONT IV 06/04/21 22:00 06/05/21 21:59 06/04/21 21:50 Bisacodyl (Dulcolax Supp) 10 mg 1X ONCE ND 06/04/21 16:30 06/04/21 16:31 DC 06/04/21 17:56 Justifications for Admission General Conditions Altered mental status?: Yes Justification of admission: Patient has tachycardia (> 100 beats per minute) or hypotension (SBP < 90 mm Hg) leading to inadequate systemic perfusion as indicated by severe/persistent altered mental status. Other Justification BRIAN MONTES MD Jun 05, 2021 08:55
--- NOTE | 2021-06-05 09:03 | PDOC ---
DATE OF SERVICE DATE: 06/05/21 TIME: 09:02 SUBJECTIVE ROS remains vent dependent OBJECTIVE Vital Signs Vital Signs Date Time Temp Pulse Resp B/P (MAP) Pulse Ox O2 Delivery O2 Flow Rate FiO2 06/05/21 07:32 100 Ventilator 06/05/21 06:00 64 20 141/67 (91) 06/05/21 04:00 98.4 98.4 I & 0 Intake and Output 06/05/21 07:00 Intake Total 2315 ml Output Total 1215 ml Balance 1100 ml IV Total 2315 ml Output Urine Total 765 ml Gastric Drainage Total 450 ml PHYSICAL EXAM Physical Exam GENERAL: sedated, on Vent HEENT: NG tube present NECK: Trach + HEART: S1, S2. LUNGS: Decreased breath sounds. ABDOMEN: bowel sounds present GENITOURINARY: Nieves in place. EXTREMITIES: Edema present. DERMATOLOGIC: Warm, dry, no generalized rash. NEUROLOGIC: Opens eyes DIAGNOSIS/ASSESSMENT Assessment & Plan ILDA-ATN- requiring dialysis , was on MWF schedule (didnt dialyze yesterday) ; Non Oliguric , marginal UOp . Dialysis today, seen during treatment , tolerating well discussed treatment plan with Ashly ,Access new Temp HDC placed 06/04 Fungemia- on antifungal HypoNatremia- Resolved HypoKalemia CKD stage 3 Acute Hypoxic Resp failure - S/P Trach COVID 19 Pneumonia Anemia Nutrition on TPn COMMENT/RELEVANT DATA Meds Current Medications Medications (Trade) Dose Ordered Sig/Jodie Start Time Stop Time Status Last Admin Dose Admin Acetaminophen (Tylenol Supp) 650 mg PRN Q6HRS PRN 05/29/21 16:15 05/29/21 16:37 650 MG Acetaminophen (Tylenol) 650 mg PRN Q6HRS PRN 04/24/21 14:00 Cancel Albumin Human 200 ml @ 200 mls/hr 1X PRN PRN 06/02/21 11:45 06/02/21 17:44 DC Amiodarone HCl (Cordarone) 200 mg DAILY 04/28/21 09:00 05/22/21 16:27 DC 05/21/21 11:07 200 MG Amiodarone HCl 150 mg/Dextrose 103 ml @ 618 mls/hr 1X ONCE 04/27/21 02:30 04/27/21 02:39 DC 04/27/21 02:30 618 MLS/HR Amiodarone HCl 450 mg/Dextrose 259 ml @ 0 mls/hr 1X ONCE 05/22/21 16:30 05/22/21 16:34 DC 05/22/21 16:59 33 MLS/HR Amlodipine Besylate (Norvasc) 10 mg DAILY 05/16/21 09:00 05/29/21 08:07 10 MG Aspirin (Aspirin Chewable) 81 mg DAILYWBKFT 05/03/21 10:00 05/29/21 08:05 81 MG Aspirin (Ecotrin) 81 mg DAILYWBKFT 04/25/21 08:00 05/03/21 09:56 DC 05/02/21 07:20 81 MG Atorvastatin Calcium (Lipitor) 80 mg QHS 04/24/21 21:00 05/23/21 19:58 80 MG Bisacodyl (Dulcolax Supp) 10 mg 1X ONCE 06/04/21 16:30 06/04/21 16:31 DC 06/04/21 17:56 10 MG Bupivacaine HCl/ Epinephrine Bitart (Sensorcain-Epi 0.5%-1:[id number] Mpf) 30 ml STK-MED ONCE 05/15/21 07:05 05/15/21 07:06 DC Carvedilol (Coreg) 3.125 mg BIDWMEALS 04/24/21 17:00 04/25/21 15:42 DC 04/25/21 09:23 3.125 MG Cefepime HCl (Maxipime) 1 gm Q12HR 05/30/21 09:00 06/05/21 07:34 DC 06/04/21 20:31 1 GM Cellulose (Surgicel Fibrillar 1x2) 1 each STK-MED ONCE 05/15/21 07:05 05/15/21 07:06 DC 05/15/21 09:40 1 EACH Chlorhexidine Gluconate (Peridex) 15 ml BID 04/24/21 21:00 04/25/21 11:19 DC 04/24/21 20:49 15 ML Daptomycin 600 mg/ Sodium Chloride 50 ml @ 100 mls/hr Q48H 05/04/21 15:00 05/06/21 08:07 DC 05/04/21 15:24 100 MLS/HR Dexamethasone Sodium Phosphate (Decadron) 4 mg STK-MED ONCE 05/15/21 07:53 05/15/21 07:53 DC Dexmedetomidine HCl 400 mcg/ Sodium Chloride 100 ml @ 0 mls/hr CONT PRN 05/04/21 10:30 06/05/21 02:21 16.4 MLS/HR Dextrose (Dextrose 50%-Water Syringe) 12.5 gm PRN Q15MIN PRN 05/03/21 14:00 Digoxin (Lanoxin) 250 mcg 1X ONCE 04/26/21 13:00 04/26/21 13:05 DC 04/26/21 15:02 250 MCG Ephedrine Sulfate (ePHEDrine PF IN SALINE SYRINGE) 50 mg STK-MED ONCE 05/15/21 09:15 05/15/21 09:15 DC Erythromycin (Romycin) 0.25 inch BID 05/17/21 12:00 05/25/21 13:24 DC 05/25/21 07:43 0.25 INCH Etomidate (Amidate) 20 mg STK-MED ONCE 04/24/21 13:38 04/24/21 13:38 DC Fentanyl Citrate 30 ml @ 0 mls/hr CONT PRN 04/24/21 14:00 06/05/21 02:22 2.5 MLS/HR Fentanyl Citrate (Fentanyl 2ml Vial) 25 mcg PRN Q1HR PRN 04/24/21 14:00 05/17/21 16:12 25 MCG Fluconazole/ Sodium Chloride 100 ml @ 100 mls/hr Q24H 06/05/21 09:00 Furosemide (Lasix) 80 mg TID 05/27/21 09:00 06/01/21 11:08 DC 05/31/21 20:10 80 MG Heparin Sodium (Porcine) (Heparin Sodium) 5,000 unit Q8HRS 05/18/21 10:00 05/30/21 11:07 DC 05/30/21 06:07 5,000 UNIT Heparin Sodium/ Dextrose 250 ml @ 0 mls/hr CONT PRN 04/24/21 16:45 05/01/21 12:32 DC 05/01/21 05:10 10 MLS/HR Hydralazine HCl (Apresoline Inj) 10 mg PRN QID PRN 05/22/21 16:30 05/29/21 08:08 10 MG Hydralazine HCl (Apresoline) 25 mg QID 05/10/21 10:00 05/22/21 16:27 DC 05/21/21 17:24 25 MG Info (Anti-Coagulation Monitoring By Pharmacy) 1 each PRN DAILY PRN 04/25/21 13:00 05/02/21 07:36 DC 04/26/21 08:51 1 EACH Info (PHARMACY MONITORING -- do not chart) 1 each PRN DAILY PRN 06/02/21 11:45 Info (Tpn Per Pharmacy) 1 each PRN DAILY PRN 05/22/21 10:00 06/04/21 13:09 1 EACH Insulin Glargine (Lantus Syringe) 20 unit BID 05/31/21 09:00 06/04/21 20:32 20 UNIT Insulin Human Lispro (HumaLOG) 0-5 UNITS Q6HRS 05/03/21 18:00 06/05/21 05:38 3 UNITS Labetalol HCl (Normodyne Iv Push) 20 mg PRN Q2HR PRN 05/01/21 12:30 05/27/21 15:43 20 MG Lidocaine HCl (Buffered Lidocaine 1%) 6 ml 1X ONCE 06/04/21 09:30 06/04/21 09:31 DC 06/04/21 09:34 2 ML Lidocaine HCl (Lidocaine Pf 2% Vial) 5 ml STK-MED ONCE 05/15/21 07:53 05/15/21 07:53 DC Linezolid/Dextrose 300 ml @ 300 mls/hr Q12HR 05/31/21 09:00 UNV Lorazepam (Ativan Inj) 0.25 mg PRN Q4HRS PRN 05/21/21 09:00 06/02/21 04:30 0.25 MG Magnesium Sulfate 50 ml @ 25 mls/hr 1X ONCE 06/02/21 08:45 06/02/21 10:44 DC 06/02/21 09:53 25 MLS/HR Meropenem 500 mg/ Sodium Chloride 50 ml @ 100 mls/hr DAILY 05/23/21 09:00 05/25/21 11:55 DC 05/25/21 07:42 100 MLS/HR Metoprolol Tartrate (Lopressor Vial) 5 mg Q6HRS 04/25/21 18:00 06/05/21 05:37 5 MG Metronidazole 100 ml @ 100 mls/hr Q12HR 05/30/21 09:00 06/05/21 07:34 DC 06/04/21 20:32 100 MLS/HR Micafungin Sodium 100 mg/Dextrose 100 ml @ 100 mls/hr Q24H 06/02/21 09:00 06/05/21 07:34 DC 06/04/21 09:54 100 MLS/HR Midazolam HCl (Versed) 5 mg 1X ONCE 05/24/21 15:15 05/24/21 15:16 DC 05/24/21 15:20 5 MG Montelukast Sodium (Singulair) 10 mg HS 04/24/21 21:00 05/23/21 19:58 10 MG Multi-Ingred Cream/Lotion/Oil/ Oint (Artificial Tears Eye Ointment) 1 danielito PRN Q1HR PRN 05/07/21 16:00 05/10/21 20:51 1 DANIELITO Nicardipine HCl 50 mg/Sodium Chloride 250 ml @ 25 mls/hr CONT PRN 05/06/21 18:45 05/20/21 19:47 37.5 MLS/HR Norepinephrine Bitartrate 8 mg/ Dextrose 258 ml @ 25.852 mls/ hr CONT PRN 05/02/21 21:00 05/09/21 06:10 DC 05/02/21 21:22 25.852 MLS/HR Nystatin (Nystop) 1 danielito BID 05/16/21 21:00 06/04/21 20:32 1 DANIELITO Ondansetron HCl (Zofran) 4 mg STK-MED ONCE 05/15/21 07:53 05/15/21 07:53 DC Pantoprazole Sodium (PROTONIX VIAL for IV PUSH) 40 mg DAILYAC 04/26/21 09:30 06/04/21 09:54 40 MG Phenylephrine HCl (PHENYLEPHRINE in 0.9% NACL PF) 1 mg STK-MED ONCE 05/15/21 07:51 05/15/21 07:51 DC Potassium Bicarbonate (Potassium Effervescent Tablet) 40 meq 1X ONCE 05/19/21 08:30 05/19/21 08:31 DC 05/19/21 08:50 40 MEQ Potassium Chloride/Water 100 ml @ 100 mls/hr Q1H 05/23/21 10:45 05/23/21 12:44 DC 05/23/21 13:17 100 MLS/HR Potassium Phosphate 10 mmol/ Sodium Chloride 103.3333 ml @ 51.667 m... Q2H 06/01/21 12:00 06/01/21 15:59 DC 06/01/21 13:24 51.667 MLS/HR Potassium Phosphate 13.6 mmol/Sodium Chloride 254.5333 ml @ 127.... 1X ONCE 05/31/21 12:00 05/31/21 13:59 DC 05/31/21 12:08 127.267 MLS/HR Potassium Phosphate 20 mmol/ Sodium Chloride 256.6667 ml @ 62.5 mls/hr 1X ONCE 05/13/21 12:15 05/13/21 16:21 UNV Potassium Phosphate 30 mmol/ Sodium Chloride 260 ml @ 62.5 mls/hr 1X ONCE 05/13/21 12:15 05/13/21 16:24 UNV Prochlorperazine Edisylate (Compazine) 5 mg PACU PRN PRN 05/15/21 06:00 05/16/21 05:59 DC Propofol 100 ml @ 4.185 mls/ hr CONT PRN 06/02/21 09:30 06/05/21 05:39 12.555 MLS/HR Propofol (Diprivan) 200 mg STK-MED ONCE 05/15/21 07:53 05/15/21 07:53 DC Remdesivir 100 mg/ Sodium Chloride 230 ml @ 460 mls/hr Q24H 04/26/21 17:30 04/29/21 17:59 DC 04/29/21 13:51 460 MLS/HR Remdesivir 200 mg/ Sodium Chloride 210 ml @ 210 mls/hr 1X ONCE 04/25/21 17:30 04/25/21 18:29 DC 04/25/21 17:09 210 MLS/HR Ringer's Solution 1,000 ml @ 30 mls/hr Q24H 05/15/21 06:00 05/15/21 17:59 DC 05/15/21 07:04 30 MLS/HR Rocuronium Zavalla (Zemuron) 50 mg STK-MED ONCE 05/15/21 07:06 05/15/21 07:07 DC Sodium Bicarbonate (Sodium Bicarb Adult 8.4% Syr) 50 meq 1X ONCE 04/27/21 09:45 04/27/21 09:46 DC 04/27/21 09:50 50 MEQ Sodium Chloride (Normal Saline Flush) 10 ml 1X PRN PRN 06/01/21 08:00 06/02/21 07:59 DC Sodium Chloride 90 meq/Potassium Chloride 25 meq/ Magnesium Sulfate 10 meq/Calcium Gluconate 5 meq/ Multivitamins 5 ml/Zinc/Copper/ Manganese/ Selenium 1 ml/ Total Parenteral Nutrition/Amino Acids/Dextrose/ Fat Emulsion Intravenous 1,080 ml @ 45 mls/hr TPN CONT 05/22/21 22:00 05/23/21 21:59 DC 05/22/21 21:22 45 MLS/HR Sodium Chloride 90 meq/Potassium Chloride 30 meq/ Potassium Phosphate 13.6 mmol/Magnesium Sulfate 10 meq/ Multivitamins 5 ml/Zinc/Copper/ Manganese/ Selenium 1 ml/ Total Parenteral Nutrition/Amino Acids/Dextrose/ Fat Emulsion Intravenous 1,200 ml @ 50 mls/hr TPN CONT 06/01/21 22:00 06/02/21 21:59 DC 06/01/21 21:33 50 MLS/HR Sodium Chloride 90 meq/Potassium Chloride 30 meq/ Potassium Phosphate 13.6 mmol/Magnesium Sulfate 12 meq/ Multivitamins 5 ml/Zinc/Copper/ Manganese/ Selenium 1 ml/ Total Parenteral Nutrition/Amino Acids/Dextrose 1,200 ml @ 50 mls/hr TPN CONT 06/04/21 22:00 06/05/21 21:59 06/04/21 21:50 50 MLS/HR Sodium Chloride 90 meq/Potassium Chloride 30 meq/ Potassium Phosphate 13.6 mmol/Magnesium Sulfate 12 meq/ Multivitamins 5 ml/Zinc/Copper/ Manganese/ Selenium 1 ml/ Total Parenteral Nutrition/Amino Acids/Dextrose/ Fat Emulsion Intravenous 1,200 ml @ 50 mls/hr TPN CONT 06/02/21 22:00 06/03/21 21:59 DC 06/02/21 21:31 50 MLS/HR Sodium Chloride 90 meq/Potassium Chloride 50 meq/ Magnesium Sulfate 10 meq/Calcium Gluconate 5 meq/ Multivitamins 5 ml/Zinc/Copper/ Manganese/ Selenium 1 ml/ Total Parenteral Nutrition/Amino Acids/Dextrose/ Fat Emulsion Intravenous 960 ml @ 40 mls/hr TPN CONT 05/27/21 22:00 05/28/21 21:59 DC 05/27/21 22:03 40 MLS/HR Sodium Chloride 90 meq/Potassium Chloride 50 meq/ Potassium Phosphate 5 mmol/ Magnesium Sulfate 10 meq/Calcium Gluconate 5 meq/ Multivitamins 5 ml/Zinc/Copper/ Manganese/ Selenium 1 ml/ Total Parenteral Nutrition/Amino Acids/Dextrose/ Fat Emulsion Intravenous 1,200 ml @ 50 mls/hr TPN CONT 05/30/21 22:00 05/31/21 21:59 DC 05/30/21 21:57 50 MLS/HR Sodium Phosphate 15 mmol/Dextrose 105 ml @ 105 mls/hr 1X ONCE 05/29/21 11:00 05/29/21 11:59 DC 05/29/21 11:53 105 MLS/HR Sodium Phosphate 15 mmol/Sodium Chloride 105 ml @ 105 mls/hr 1X ONCE 05/29/21 11:45 05/29/21 12:44 UNV Succinylcholine Chloride (Anectine) 200 mg STK-MED ONCE 04/24/21 13:38 04/24/21 13:38 DC Vecuronium Zavalla (Norcuron Bolus) 6 mg PRN Q6HRS PRN 04/30/21 11:15 05/14/21 09:12 6 MG Lab Laboratory Tests Test 06/04/21 11:20 06/04/21 17:55 06/04/21 23:36 06/05/21 05:34 Glucose (Fingerstick) 203 mg/dL (70-99) 205 mg/dL (70-99) 213 mg/dL (70-99) 201 mg/dL (70-99) Results All relevant outside records, renal labs, imaging studies, telemetry/EKG's were reviewed. Justicifation of Admission Dx: Justifications for Admission: Justification of Admission Dx: Yes Aspiration Pneumonia: Hemodynamic Instability JASMEET LAM MD Jun 05, 2021 09:03
[2021-06-05] MEDS: TPN PER PHARMACY MC PRN (09:29)
--- NOTE | 2021-06-05 09:32 | NUR ---
Pharmacy TPN Dosing Note S: NILAM LAN is a 75 year old M Currently receiving Central Continuous TPN started 05/22/21 B:Pertinent PMH: ILEUS Height: 6 feet, 2 inches Weight: 142.0 kg Current diet: NPO LABS: Sodium: 139 Potassium: 3.6 Chloride: 105 Calcium: 7.8 Corrected Calcium: 9.72 Magnesium: 2 CO2: 27 SCr: 2.2 Glucose: 145-213 Albumin: 1.6 AST: 27 ALT: 19 TPN FORMULA: TPN TYPE: Central Continuous AMINO ACIDS: 90 gm DEXTROSE: 290 gm LIPIDS: 0 gm SODIUM CHLORIDE: 90 mEq POTASSIUM CHLORIDE: 30 mEq POTASSIUM PHOSPHATE: 13.6 mmol MAGNESIUM: 12 mEq MULTIPLE VITAMIN: 5 ml TRACE ELEMENTS: 1 ml(s) TPN PLAN: No labs today; continue same formula. R: Continue TPN Will monitor electrolytes, glucose, and tolerance to TPN. Jaqueline Watson RPH, 06/05/21 0960
--- NOTE | 2021-06-05 10:00 | NUR ---
SS following up with discharge planning. SS reviewed pt chart and discussed with pt RN. Pt is currently on the vent at 40%. COVID19 recovered. NG in place. TPN. Ileus improving. Pt on Fentanyl, Propofol, and Precedex. Hemodialysis. Pt on IV Fluconazole. Pt accepted at [facility] [place], ; fax [phone], pending insurance approval. SS phoned and faxed clinical updates to [facility]. SS will continue to follow for discharge planning.
[2021-06-05] MEDS: INSULIN GLARGINE SYRINGE. SQ SCH ×2 (10:02→21:14)
[2021-06-05] MEDS ORDERED: ALBUMIN HUMAN 25% 100 ML IV PRN (10:15)
[2021-06-05] MEDS ORDERED: DIALYSIS PATIENT. MC PRN ×2 (10:15)
[2021-06-05] MEDS ORDERED: IV NORMAL SALINE 1000ML BAG 1,000 ML IV PRN ×2 (10:15)
--- NOTE | 2021-06-05 10:30 | PDOC ---
PULMONARY PROGRESS NOTES DATE: 06/05/21 TIME: 10:28 Subjective on assist control mode, peep 5 fio2 40% Awake. Not in any obvious respiratory distress. Did not tolerate trach shield for more than an hour yesterday. ileus tpn Vitals Vital Signs Date Time Temp Pulse Resp B/P (MAP) Pulse Ox O2 Delivery O2 Flow Rate FiO2 06/05/21 09:30 100 Ventilator 06/05/21 06:00 64 20 141/67 (91) 06/05/21 04:00 98.4 98.4 Comments Tracheostomy ros unable to obtain sedated on vent General: No acute distress HEENT: Other (Trachea midline nc at perrl nose clear neck trach site ok no lad) Lungs: Crackles Cardiovascular: S1, S2 Abdomen: Soft Extremities: No Edema Skin: Warm Labs Laboratory Tests Test 06/03/21 11:52 06/03/21 18:22 06/04/21 00:25 06/04/21 05:58 Glucose (Fingerstick) 188 mg/dL (70-99) 146 mg/dL (70-99) 153 mg/dL (70-99) 147 mg/dL (70-99) Test 06/04/21 06:00 06/04/21 11:20 06/04/21 17:55 06/04/21 23:36 Sodium Level 139 mmol/L (136-145) Potassium Level 3.6 mmol/L (3.5-5.1) Chloride Level 105 mmol/L (98-107) Carbon Dioxide Level 27 mmol/L (21-32) Anion Gap 7 (6-14) Blood Urea Nitrogen 34 mg/dL (8-26) Creatinine 2.2 mg/dL (0.7-1.3) Estimated GFR (Cockcroft-Gault) 35.6 Glucose Level 145 mg/dL (70-99) Calcium Level 7.8 mg/dL (8.5-10.1) Phosphorus Level 2.9 mg/dL (2.6-4.7) Magnesium Level 2.0 mg/dL (1.8-2.4) Glucose (Fingerstick) 203 mg/dL (70-99) 205 mg/dL (70-99) 213 mg/dL (70-99) Test 06/05/21 05:34 Glucose (Fingerstick) 201 mg/dL (70-99) Laboratory Tests Test 06/04/21 11:20 06/04/21 17:55 06/04/21 23:36 06/05/21 05:34 Glucose (Fingerstick) 203 mg/dL (70-99) 205 mg/dL (70-99) 213 mg/dL (70-99) 201 mg/dL (70-99) Medications Active Scripts Medications Dose Route/Sig Max Daily Dose Days Date Category Glyburide 2.5 Mg Tablet 1 Tab PO DAILY 04/19/21 Rx Polyethylene Glycol 3350 17 Gm Powd.pack 17 Gm PO DAILY 04/19/21 Rx Dok (Docusate Sodium) 100 Mg Capsule 100 Mg PO PRN DAILY PRN 30 04/19/21 Rx Bisacodyl 5 Mg Tablet.dr 5 Mg PO PRN DAILY PRN 04/19/21 Rx Acetaminophen 325 Mg Tablet 650 Mg PO PRN Q4HRS PRN 04/19/21 Rx Aspirin Ec (Aspirin) 81 Mg Tablet.dr 81 Mg PO DAILYWBKFT 04/19/21 Rx Hydralazine Hcl 25 Mg Tablet 25 Mg PO QID 04/19/21 Rx Fenofibrate 54 Mg Tablet 1 Tab PO DAILY 04/17/21 Reported Potassium Chloride (Potassium Chloride) 20 Meq Tablet.er 20 Meq PO DAILY 04/17/21 Reported Coreg (Carvedilol) 12.5 Mg Tablet 37.5 Mg PO BIDWMEALS 04/17/21 Reported Rosuvastatin Calcium 40 Mg Tablet 40 Mg PO QHS 04/17/21 Reported Gabapentin (Gabapentin) 100 Mg Capsule 200 Mg PO BID 04/17/21 Reported Montelukast Sodium Tablet (Montelukast Sodium) 10 Mg Tablet 10 Mg PO HS 04/17/21 Reported Protonix (Pantoprazole Sodium) 20 Mg Tablet.dr 2 Tab PO DAILY 04/17/21 Reported Amlodipine Besylate 5 Mg Tablet 5 Mg PO DAILY 04/17/21 Reported Furosemide 40 Mg Tablet 1 Tab PO DAILY 04/17/21 Reported Proair Hfa Inhaler (Albuterol Sulfate) 8.5 Gm Hfa.aer.ad 2 Puff IH PRN Q4-6HRS PRN 21 04/16/21 Reported Advair 100-50 Diskus (Fluticasone/Salmeterol) 1 Each Disk.w.dev 1 Puff IH BID 04/16/21 Reported Comments Impression . IMPRESSION: 1. Acute hypoxic respiratory failure, multifactorial/COVID-19 viral pneumonia/ARDS, ongoing, intubated 04/25/2021, now status post tracheostomy 05/15/[address] chest with bilateral diffuse interstitial infiltrates without any significant pleural effusion 3. Leukocytosis, sepsis--improved 4. Non-ST segment elevation RI 5. History of tobacco use, suspect COPD, unknown FEV1 6. Chronic kidney disease.== HD as needed per renal 7. Metabolic acidosis multifactorial 8. Abnormal chest x-ray 9. Hypoglycemia, continue to monitor--- resolved 10. Hypotension, suspect volume deficit,/possible sepsis--- resolved 11. Fever--improved 12. Anemia--improved 13. Atrial fibrillation with rapid ventricular response, currently rate controlled 14. Ileus 15. ? fungemia Plan . Updated 06/05/21 Continue current ventilatory support, 500/40/5 Will initiate trach shield trial again. f/u yeast in , Continue cefepime and flagyl, Cont micafungin June 02, DC Zyvox Continue Precedex fentanyl tachypneac propofol added It has been difficult to wean the patient due to nonpulmonary issues such as arrhythmias, worsening hypertension and tachycardia and current ileus. Monitor HGB Follow GI recs-- ileus, PEG tube on hold, Follow nephrology recs-- hemodialysis per nephro Follow infectious disease recommendations for ABX Continue TPN for nutritional support DVT/GI PPX: sq heparin-- on hold D/W RN and RT Pt. is DNR Updated 06/04/21 Continue current ventilatory support, 500/40/5 Will initiate trach shield trial after replacement of dialysis catheter. f/u yeast in , Continue cefepime and flagyl, Cont micafungin June 02, DC Zyvox Continue Precedex fentanyl tachypneac propofol added It has been difficult to wean the patient due to nonpulmonary issues such as arrhythmias, worsening hypertension and tachycardia and current ileus. Monitor HGB Follow GI recs-- ileus, PEG tube on hold, Follow nephrology recs-- hemodialysis per nephro Follow infectious disease recommendations for ABX Continue TPN for nutritional support DVT/GI PPX: sq heparin-- on hold D/W RN and RT Pt. is DNR Updated 06/03/21 Continue current ventilatory support, 20/500/40/5 f/u yeast in bc, Continue cefepime and flagyl, Cont micafungin June 02, DC Zyvox Continue Precedex fentanyl tachypneac propofol added It has been difficult to wean the patient due to nonpulmonary issues such as arrhythmias, worsening hypertension and tachycardia and current ileus. Monitor HGB Follow GI recs-- ileus, PEG tube on hold, Follow nephrology recs-- hemodialysis per nephro Follow infectious disease recommendations for ABX Continue TPN for nutritional support DVT/GI PPX: sq heparin-- on hold D/W RN and RT Pt. is DNR Updated 06/02/21 Continue current ventilatory support, 20500/40/5 weaning as tolerated Continue Precedex fentanyl tachypneac will add propofol It has been difficult to wean the patient due to nonpulmonary issues such as arrhythmias, worsening hypertension and tachycardia and current ileus. Monitor HGB Follow GI recs-- ileus, PEG tube on hold, Follow nephrology recs-- hemodialysis per nephro Follow infectious disease recommendations for ABX Continue TPN for nutritional support DVT/GI PPX: sq heparin-- on hold D/W RN and RT Pt. is DNR Updated 06/01/21 Continue current ventilatory support, 20500/40/5 Continue Precedex for sedation It has been difficult to wean the patient due to nonpulmonary issues such as arrhythmias, worsening hypertension and tachycardia and current ileus. Monitor HGB Follow GI recs-- ileus, PEG tube on hold, Follow nephrology recs--currently on hemodialysis Follow infectious disease recommendations for ABX Continue TPN for nutritional support DVT/GI PPX: sq heparin-- on hold D/W RN and RT Pt. is DNR CC time 30 minutes Updated 05/31/21 Continue current ventilatory support, 20/500/40/5 Continue Precedex for sedation Monitor HGB Follow GI recs-- ileus, PEG tube on hold, nursing reports 75 cc of NG output Follow nephrology recs--currently on hemodialysis Follow infectious disease recommendations for ABX Continue TPN for nutritional support DVT/GI PPX: sq heparin-- on hold D/W RN and RT Pt. is DNR CC time 30 minutes JONES FISHMAN MD Jun 05, 2021 10:30
[2021-06-05 11:17] LABS: CALCIUM 8.3 mg/dL (8.5-10.1); CREATININE 2.2 mg/dL (0.7-1.3); GFR 35.6; POTASSIUM 3.7 mmol/L (3.5-5.1)
--- NOTE | 2021-06-05 11:49 | RAD ---
XR ABDOMEN 1V History: Reason: follow ileus 104 / Spl. Instructions: / History: Technique: Supine view the abdomen. Comparison: May 29, 2021 Findings: Unchanged positioning of the enteric tube. Decreased small bowel gas compared to prior. Air and stool throughout the colon. Multilevel lumbar spondylosis with leftward curvature. Impression: 1. Decreased small bowel distention and gas compared to prior. Electronically signed by: Ahsan Sharma DO (06/05/2021 11:46 AM) [id number]
--- NOTE | 2021-06-05 11:57 | PDOC ---
Date of Service: DATE: 06/05/21 TIME: 11:51 Subjective: Subjective: No info from pt. Objective: Objective: D/w nurse - no reports of any stool after suppository, not much NG output so far today. Vital Signs: Vital Signs Date Time Temp Pulse Resp B/P (MAP) Pulse Ox O2 Delivery O2 Flow Rate FiO2 06/05/21 11:25 100 Ventilator 06/05/21 11:00 68 20 79/46 (57) 06/05/21 08:00 98.7 98.7 Labs: Laboratory Tests Test 06/04/21 17:55 06/04/21 23:36 06/05/21 05:34 Glucose (Fingerstick) 205 mg/dL (70-99) 213 mg/dL (70-99) 201 mg/dL (70-99) Imaging: KUB 06/05 pending PE: GEN: appears chronically ill, dialyzing LUNGS: trach/vent, clear anteriorly HEART: RRR ABD: thin bilious contents in NG (~100cc - unclear when last changed, but done prior to this shift), abd softer, a few gurgles NEURO/PSYCH: awake, does not respond when I asked about pain A/P: COVID-19/resp failure s/p tracheostomy, need for non-oral nutrition Ileus - was unable to tolerate tube feeds (before and after trach placement as I understand), prolonged period on TPN w/ NG suction - NG output slowing, but so far less than adequate improvement to try clamping tube/observe off suction and eventual re-try tube feeds - unless ileus resolves and he is able to tolerate tube feeds, he is not a PEG candidate (because we would not expect that he would tolerate PEG feeds if he can't tolerate NG/OG feeds) -- Await KUB. Justicifation of Admission Dx: Justifications for Admission: Justification of Admission Dx: Yes Aspiration Pneumonia: Hemodynamic Instability TAIWO THEODORE Jun 05, 2021 11:57
[2021-06-05] MEDS: FLUCONAZOLE 200MG/100ML PREMIX 100 ML IV SCH (14:46)
[2021-06-05] MEDS: NYSTATIN TOPICAL POWDER 15GM BOTTLE. TP SCH ×2 (14:49→21:14)
[2021-06-05] MEDS: PANTOPRAZOLE IV PUSH 40 MG VIAL. IVP SCH (14:49)
[2021-06-05] MEDS: MONTELUKAST SODIUM 10 MG TABLET. PO SCH (20:37)
[2021-06-05] MEDS: ATORVASTATIN CALCIUM 40 MG TABLET. PO SCH (20:37)
[2021-06-05] MEDS ORDERED: TOTAL PARENTERAL NUTRITION IV SCH (22:00)
[2021-06-05] MEDS ORDERED: DEXTROSE 70% IV SCH (22:00)
[2021-06-05] MEDS ORDERED: [UNRECOGNIZED DRUG - OTHER] IV SCH (22:00)
[2021-06-05] MEDS ORDERED: AMINO ACID IV SCH (22:00)
[2021-06-06] VITALS (22 sets, daily range): BP systolic 97–186; BP diastolic 43–94
[2021-06-06] MEDS: DEXMEDETOMIDINE 400 MCG in IV NORMAL SALINE 100ML 96 ML IV PRN ×4 (05:53→23:54)
[2021-06-06] MEDS: METOPROLOL IV PUSH 5 MG/5 ML VIAL. IVP SCH ×3 (05:53→17:38)
[2021-06-06] MEDS: INSULIN LISPRO 300 UNITS/3 ML VIAL. SQ SCH ×4 (05:54→23:54)
[2021-06-06] MEDS: PROPOFOL 100 ML IV PRN (05:55)
[2021-06-06 06:33] LABS: CALCIUM 8.2 mg/dL (8.5-10.1); CREATININE 1.9 mg/dL (0.7-1.3); GFR 42.1; POTASSIUM 4.3 mmol/L (3.5-5.1)
[2021-06-06 06:36] LABS: PHOSPHORUS 2.8 mg/dL (2.6-4.7)
--- NOTE | 2021-06-06 07:57 | PDOC ---
Infectious Disease Note Subjective Subjective Pt remains vent dependent No nausea vomiting diarrhea Discussed with nursing staff ROS ROS As above Vital Sign Vital Signs Vital Signs Date Time Temp Pulse Resp B/P (MAP) Pulse Ox O2 Delivery O2 Flow Rate FiO2 06/06/21 06:00 73 20 149/65 (93) 100 Ventilator 06/06/21 04:00 99.3 99.3 Physical Exam PHYSICAL EXAM GENERAL: Well-developed and well-nourished male, sedated , on vent HEENT: Normocephalic, atraumatic, redness and erythema of both eyes improved, NG tube present NECK: right dialysis catheter present clean,central line changed ( 05/11) Trach + HEART: S1, S2. LUNGS: Decreased breath sounds. ABDOMEN: Less distended, bowel sounds present GENITOURINARY: Nieves in place. EXTREMITIES: Edema present. DERMATOLOGIC: Warm, dry, no generalized rash. NEUROLOGIC: Opens eyes PICC line clean Labs Lab Laboratory Tests Test 06/05/21 10:50 06/05/21 16:30 06/05/21 23:50 06/06/21 05:50 Sodium Level 138 mmol/L (136-145) 141 mmol/L (136-145) Potassium Level 3.7 mmol/L (3.5-5.1) 4.3 mmol/L (3.5-5.1) Chloride Level 104 mmol/L (98-107) 105 mmol/L (98-107) Carbon Dioxide Level 27 mmol/L (21-32) 27 mmol/L (21-32) Anion Gap 7 (6-14) 9 (6-14) Blood Urea Nitrogen 39 mg/dL (8-26) 29 mg/dL (8-26) Creatinine 2.2 mg/dL (0.7-1.3) 1.9 mg/dL (0.7-1.3) Estimated GFR (Cockcroft-Gault) 35.6 42.1 Glucose Level 211 mg/dL (70-99) 188 mg/dL (70-99) Calcium Level 8.3 mg/dL (8.5-10.1) 8.2 mg/dL (8.5-10.1) Glucose (Fingerstick) 195 mg/dL (70-99) 215 mg/dL (70-99) Phosphorus Level 2.8 mg/dL (2.6-4.7) Magnesium Level 2.0 mg/dL (1.8-2.4) Test 06/06/21 05:51 Glucose (Fingerstick) 180 mg/dL (70-99) Micro GRAM STAIN EVALUATION Final Final This specimen is of good quality and is acceptable for routine bacterial culture. Culture results to follow. GRAM NEGATIVE RODS:FEW GRAM POSITIVE COCCI:RARE SQUAMOUS EPI CELL:NONE SEEN PMN (WBCs):MANY Unless otherwise specified, Testing Performed by: [address] [address] For Inquires, the Physician may contact the Microbiology department at [phone] RESPIRATORY CULTURE Preliminary Preliminary No Growth on 05/12/21 at 0900 Unless otherwise specified, Testing Performed by: [address] [address] For Inquires, the Physician may contact the Microbiology department at [phone] Objective Assessment Fungemia May 30, 2021, C parapsilosis, 06/02 neg RT IJ central line removed cath tip sent for cult 1. Febrile illness resolved 2. Leukocytosis, was on steroids,ileus could contribute,improving 3. COVID-19 pneumonia. 4. Acute hypoxic respiratory failure status post intubation.Now S/P Trach / Pleural effusion 5. Congestive heart failure, acute on chronic. 6. Acute kidney injury on chronic kidney disease on hemodialysis. 7. Diabetes mellitus 2. 8. Atrial fibrillation. 9. Anemia. 10. Protein-calorie malnutrition. 11. Hypertention 12.Hyponatremia 13. Ileus, Bowel obstruction Peg TF on hold, OG to LIS 14.on PPN 15.Mild to Moderate Pleural effusion 16.Lt eye conjunctivitis resolved Plan Plan of Care diflucan Monitor labs and cultures lines removed f/u repeat bc from 06/02 neg Nieves changed 05/30 C. difficile PCR negative Remains critically ill Continue supportive care Prognosis poor Patient's family is deciding whether to go ahead with permacath or not Discussed with nursing staff JAD RIVERO MD Jun 06, 2021 07:57
[2021-06-06] MEDS: ASPIRIN CHEWABLE 81 MG TABLET. PO SCH (08:00)
[2021-06-06] MEDS: PANTOPRAZOLE IV PUSH 40 MG VIAL. IVP SCH (08:27)
[2021-06-06] MEDS: FLUCONAZOLE 200MG/100ML PREMIX 100 ML IV SCH (08:27)
[2021-06-06] MEDS: NYSTATIN TOPICAL POWDER 15GM BOTTLE. TP SCH ×2 (08:28→20:58)
[2021-06-06] MEDS: INSULIN GLARGINE SYRINGE. SQ SCH ×2 (08:44→20:59)
--- NOTE | 2021-06-06 08:57 | PDOC ---
[employer] PROGRESS NOTE Date of Service DOS: DATE: 06/06/21 TIME: 08:57 Chief Complaint Chief Complaint Respiratory failure requiring intubation COVID-19 Acute PR A. fib SIRS Hypertension with hypertensive urgency Hyperlipidemia CKD Diabetes History of bilateral subclavian stenosis History of marijuana use Severe protein calorie malnutrition Trach placed on May 15 GI consulted for PEG evaluation --> patient with a lot of vomiting yesterday thus current NG tube to low intermittent suction Anemia secondary to acute blood loss, possible multiple lab draws and related to advanced CKD Positive yeast on 1 out of 4 bottles on blood cultures History of Present Illness History of Present Illness Afebrile. On minimal sedation with propofol and Precedex and vent support via trach PEEP 5 FiO2 40%. Still in A. fib on telemetry. Catheter tip no growth to date sputum with Mariya. Repeat blood cultures no growth to date CC time 30 min spent in reviewing chart, labs, and images. Discussed with RN and SW. 06/05: Afebrile. Still requiring minimal sedation on propofol and Precedex. Requiring vent support via trach PEEP five FiO2 40%. KUB with less gaseous distention. No BM but bowel sounds are audible. 06/04: No overnight events afebrile. Sedated on propofol and Precedex. On vent with tracheostomy PEEP 5 FiO2 40%. Being treated for fungemia and receiving TPN. Left IJ CVC functioning well. HD catheter right. 06/03: No acute events overnight. Left IJ placed by IR. Defer to ID for antibiotic management for cultures of the catheter tip and yeast. 06/02: No acute events overnight. Patient saturating 100% on trach collar. Tmax 100.3. Yeast 1 of 4 bottles on blood cultures. Plan to remove central line and dialysis catheter. Family consideration for tunneled catheterization possibly hold. Micafungin was started per ID. 06/01: No acute events overnight. Patient saturating well on trach collar. Patient seen and examined bedside and on HD. Hemoglobin trended down from 8.4- 7.3. Afebrile in the last 24 hours. Patient's chart, labs, images were reviewed and discussed with RN 05/31: No acute events overnight. Patient saturating 100% on trach collar. Hemoglobin improved after 1 unit PRBC transfusion to 8.4. Patient is currently undergoing dialysis and his labs have been stable. Patient's chart, labs, images were reviewed and discussed with RN 05/30: No acute events overnight. Patient doing well on trach collar. Hemoglobin decreased down to 6.7 pending 1 unit PRBC transfusion. Restarted on linezolid and Flagyl and cefepime. Pending PICC placement and central line IJ removal. 05/29: No acute events or night. Patient tolerating trach collar humidified. Saturating at 99%. Pending PICC line placement and IJ central line removal. Per ID. Possibly in not needing HD. Making urine adequately with Lasix as needed. 05/28: No acute events overnight. Patient doing well on trach with settings of 40% FiO2 and PEEP of 8. Pending PEG placement after ileus is resolved will defer this to GI for timing of PEG placement.. Also pending tunneled catheter placement for dialysis. 05/27: Afebrile. On vent with FiO2 40%, PEEP 5. Hemoglobin remains stable at 7.2 today; continue to trend. WBC 13.4. Kidney function appears to be stabilized. LTAC transfer is pending PEG tube placement. Off meropenem; will continue to monitor. Kidney function appears to be stable. 05/26: Afebrile. On vent with FiO2 40%, PEEP 5. Hemoglobin 7.3 yesterday, and hemoglobin 7.2 today; continue to trend. Leukocytosis slightly improved, WBC 12.9 today. Has been accepted at [facility]; transfer pending, but will need PEG tube placement prior. 05/25: Afebrile. On vent with FiO2 40%, PEEP 5. Hemoglobin 8.6 yesterday, hemoglobin 7.3 today. Reportedly had HD yesterday. Continue IV antibiotics, per ID; WBC possibly reactive to ileus. Has been accepted at [facility]; transfer pending, but will need PEG tube placement prior. 05/24: No acute events overnight. Afebrile. NG tube output has decreased. Kidney function appears stable. Continue IV antibiotics, per ID. Patient has been accepted to [facility], pending insurance authorization. 05/23: Afebrile. On vent with FiO2 40%, PEEP 5. NG tube for 635 mL out overnight. Continue NG tube to suction. HD per nephrology. Continue IV antibiotics, per ID. Critical care time 30 minutes spent reviewing charts, reviewing labs, reviewing imaging, discussion with RN. 05/22: Afebrile. On vent with FiO2 40%, PEEP 5. Excessive NG output. Continue NG tube to suction for now; PEG on hold for now. Continue hemodialysis, per nephrology. Continue IV antibiotics, per ID. Social work helping with discharge planning to LTACH likely in the near future after PEG 05/21: Afebrile, no acute events overnight. Remains on vent, FiO2 40%, PEEP 5. S/P tracheostomy on 05/15/2021. KUB on 05/19/2021 consistent with ileus. Per GI, continue NG tube to suction and parenteral nutrition for now. Continue IV antibiotics, per ID. Continue hemodialysis 05/20: Patient seen and examined at bedside. Again had multiple bouts of vomit ing yesterday. GI continuing to follow for PEG evaluation although on hold right now due to persistent vomiting. Leukocytosis does persist but patient afebrile. Plan of care discussed with bedside RN 05/19: Patient seen and examined at bedside. Apparently had a fair bit of vomiting overnight. GI following for PEG evaluation. Otherwise patient remained stable. Plan of care discussed with bedside nurse. 05/18: Patient seen and examined at bedside. Attempting to increase tube feeds, GI consulted for PEG evaluation. Otherwise no major clinical changes. Continue to wean sedation. Plan of care discussed with bedside nurse. 05/17: Patient seen and examined at bedside. Attempting to wean sedation. Patient with some diarrhea. Per infectious disease will give erythromycin eye ointment for eye lesions. Nephro and pulm also following. Continue sedation weaning, plan of care discussed with bedside nurse. 05/16: Patient seen and examined at bedside. Underwent tracheostomy yesterday today tolerated well. When seen this morning patient is still notably sedated respiratory status is stable. Continue antibiotics and supportive measures. 05/15: Patient seen and examined at bedside. Remains intubated and sedated planning for tracheostomy today. Continue current respiratory support; continue antibiotics, continue sedation. 05/14: Patient seen and examined at bedside. Remains intubated and sedated planning for tracheostomy tomorrow. Continue current respiratory support; continue antibiotics, continue sedation. Follow recommendations of pulmonary, renal, and infectious disease 05/13: Did not tolerate sedation vacation 05/11/2021, profoundly hypertensive. ABG/CXR--changes as needed. Continue iv cefepime , add zyvox, sputum culture. VENT [id number]%, 5 of PEEP. Mild pulmonary edema with new small right pleural effusion and basilar opacities. now on cardene gtt prn 05/12: Continue iv cefepime , add zyvox, sputum culture. VENT %, 5 of PEEP. now on cardene gtt prn 05/11/2021 Continue iv cefepime , add zyvox, sputum culture VENT [id number]%, 5 of PEEP Mild pulmonary edema with new small right pleural effusion and basilar opacities now on cardene gtt prn Patient seen and examined in the [place] [address] ICU remains mechanically ventilated ILDA on CKD - ATN 2/2 sepsis/ Hypotension,UOP good,on IV Lasix ; requiring dialysis, Sedated with propofol Dex and fentanyl Chart reviewed Discussed with RN He remains critically ill intubated/sedated cont cardene gtt not able to tolerate PS trial 05/06/21 Change central line and send cath tip for cultures. 05-09 C. difficile PCR JONES FISHMAN MD,ADELSO DASILVA MD, MD ORDERED: BCULT Procedure Result BLOOD CULTURE Preliminary NO GROWTH AFTER 2 DAYS ----- ------- BLOOD CULTURE Preliminary NO GROWTH AFTER 4 DAYS 36 min cc time 05/10/2021 VENT [id number]%, 5 of PEEP Mild pulmonary edema with new small right pleural effusion and basilar opacities now on cardene gtt prn Patient seen and examined in the [place] [address] ICU remains mechanically ventilated ILDA on CKD - ATN 2/2 sepsis/ Hypotension,UOP good,on IV Lasix ; requiring dialysis, Sedated with propofol Dex and fentanyl Chart reviewed Discussed with RN He remains critically ill intubated/sedated cont cardene gtt not able to tolerate PS trial 05/06/21 Change central line and send cath tip for cultures. 05-09 C. difficile PCR JONES FISHMAN MD,ADELSO DASILVA MD, MD ORDERED: BCULT Procedure Result BLOOD CULTURE Preliminary NO GROWTH AFTER 2 DAYS BLOOD CULTURE Preliminary NO GROWTH AFTER 4 DAYS 33 min cc time 05/09/2021 VENT [id number]%, 5 of PEEP Mild pulmonary edema with new small right pleural effusion and basilar opacities now on cardene gtt prn Patient seen and examined in the [place] [address] ICU remains mechanically ventilated ILDA on CKD - ATN 2/2 sepsis/ Hypotension,UOP good,on IV Lasix ; requiring dialysis, Sedated with propofol Dex and fentanyl Chart reviewed Discussed with RN He remains critically ill intubated/sedated cont cardene gtt not able to tolerate PS trial 05/06/21 Change central line and send cath tip for cultures. 05-09 C. difficile PCR JONES FISHMAN MD,BRIAN AVILA,ADELSO POTTER ORDERED: BCULT Procedure Result -- BLOOD CULTURE Preliminary NO GROWTH AFTER 2 DAYS BLOOD CULTURE Preliminary NO GROWTH AFTER 4 DAYS 37 min cc time 05/08/2021 Currently on 40%, 5 of PEEP now on cardene gtt Patient seen and examined in the [facility]- ICU remains mechanically ventilated ILDA on CKD - ATN 2/2 sepsis/ Hypotension,UOP good,on IV Lasix ; requiring dialysis, AC/20/500/40 percent with 5 of PEEP Sedated with propofol Dex and fentanyl Chart reviewed Discussed with RN He remains critically ill intubated/sedated cont cardene gtt not able to tolerate PS trial 05/06/21 JONES FISHMAN MD, CHRISTOPHER S MD SISILLO, SABATO MD ORDERED: BCULT Procedure Result BLOOD CULTURE Preliminary NO GROWTH AFTER 2 DAYS BLOOD CULTURE Preliminary NO GROWTH AFTER 4 DAYS 33 min cc time 05/07/2021 Patient seen and examined in the [place] [address] ICU He remains mechanically ventilated ILDA on CKD - ATN 2/2 sepsis/ Hypotension,UOP good,on IV Lasix ; requiring dialysis, AC/20/500/40 percent with 5 of PEEP Sedated with propofol Dex and fentanyl Chart reviewed Discussed with RN He remains critically ill intubated/sedated cont cardene gtt not able to tolerate PS trial 05/06/21 JONES FISHMAN MD, CHRISTOPHER S MD SISILLO, SABATO MD ORDERED: BCULT Procedure Result BLOOD CULTURE Preliminary NO GROWTH AFTER 2 DAYS 36 min cc time 05/06/2021 Patient seen and examined in the [place] [address] ICU He remains mechanically ventilated AC/20/500/40 percent with 5 of PEEP Sedated with propofol Dex and fentanyl Chart reviewed Discussed with RN He remains critically ill 05/05/2020 Patient seen and examined in the [place] [address] ICU He remains on the vent AC/20/500/40 percent with 5 of PEEP Discussed with RN Chart reviewed Has SCDs in place Nieves to bedside drainage He remains critically ill 05/04/2021 Patient seen and examined in the [place] [address] ICU Still intubated Sedated with propofol and fentanyl AC/20/500/70 percent with 5 of PEEP On dialysis currently Has SCDs in Nieves to bedside drainage Discussed with RN Chart reviewed 05/03/2021 Patient seen and examined in the [place] [address] ICU He is still intubated AC/20/500/70 percent with 5 of PEEP Has SCDs in place Nieves to bedside drainage Sedated with fentanyl Versed and propofol Discussed are Chart reviewed Remains critically ill 05/02/2021 Patient seen and examined in the [place] [address] ICU He is sedated with propofol fentanyl and Versed Ventilator settings as follow AC/20/500/40 percent with 5 of PEEP Has Nieves to bedside drainage Chart reviewed Discussed with RN He remains critically ill 05/01/2021 Patient seen and examined in the [place] [address] ICU He is still intubated AC/20/500/40 percent with 5 of PEEP In A. fib Sedated with propofol fentanyl and Versed Has a heparin drip Missy with RN Chart reviewed He remains critically 04/30: Patient seen and examined in the [place] [address] ICU He remains on the vent AC/20/500/40 5% with 5 PEEP Currently on dialysis Has OG feeds running Has a Nieves to bedside drainage Sedated with propofol and fentanyl Reviewed chart Discussed with RN He remains critically ill Mr Cunha is a 75 yo male w/ PMHx CAD, HTN, Hyperlipidemia, subclavian steel syndrome, subclavian stenosis s/p left subclavian sent placement complicated by retroperitoneal hematoma s/p evacuation in 08/2015), asthma, BART, CKD, DM2 who presented from home with home health care noted that he was short of breath and valverde with O2 saturations less than 89% as low as 84% not improved with nasal cannulated oxygen placed on CPAP and brought to ED for further care. He was just discharged from the hospital a week ago on April 19, 2021 for abdominal pain and was going for further cardiac testing with outpatient stress testing scheduled on May 28, 2021. Had echocardiogram April 17, 2021 with normal-appearing EF with moderate concentric LVH no significant valvular abnormalities. WBC 20, Hb 10.7, platelets 268, NA 140, K3.8, BUN 21, CR 2.9, glucose 162, albumin 3, troponin I 1.372, NT proBNP 33,318. EKG appears sinus tachycardia rate of 105 bpm with multiple PACs small ST depressions in lead II and V5. TWI in V6. Chest radiograph with diffuse interstitial and alveolar opacities and ET tube 5.8 cm above the leilani. Due to worsening respiratory status ED physician elected to intubate patient. Seen postintubation. Blood pressure little low after propofol bolus, but impro ava. Significant white frothy sputum per ET tube. Admitted to ICU for further care 04/29: Afebrile, remains on vent at FiO2 45%, PEEP 5. WBC 20.4. Hemodialysis per nephrology. We will continue treatment with empiric antibiotics, remdesivir, and steroids. Continue heparin infusion and supportive care. 04/28: Afebrile. FiO2 50%, PEEP 5. Nontunneled HD catheter placed yesterday due to worsening kidney function; eGFR 16 (CKD4). Chest x-ray showed unchanged interstitial opacities. Continue empiric antibiotics, steroids, and remdesivir. Continue heparin infusion, for new dx A. fib. 04/27: Afebrile. Vent with FiO2 50%, PEEP 5. Troponin 2.8 yesterday; probable type II, demand ischemia. New onset A. fib. Cont heparin gtt and prn digoxin, per cardiology. Contnue treatment with remdesivir, steroids, and prophylactic antibiotics. BG 323 this morning; will add basal insulin. 04/26: COVID-19 positive. Febrile overnight that was managed with cooling blankets. On vent with FiO2 50%, PEEP 5. Per cardiology, elevated troponins likely secondary to demand ischemia; continue heparin drip per cardiology. Continue treatment with remdesivir, steroids, and antibiotics. 04/25: On vent FiO2 50, PEEP 5. Febrile, T-max 103.3. Patient was initiated on cooling blankets. Procalcitonin 0.13. Continue coverage for hospital-acquired pneumonia with cefepime. MRSA PCR pending. Vitals/I&O Vitals/I&O: Vital Signs Date Time Temp Pulse Resp B/P (MAP) Pulse Ox O2 Delivery O2 Flow Rate FiO2 06/06/21 08:42 100 Ventilator 06/06/21 08:21 99.1 76 20 163/68 (99) 99.1 I & O 06/05/21 06/05/21 06/06/21 15:00 23:00 07:00 Intake Total 1103 ml 1016 ml Output Total 290 ml 250 ml 470 ml Balance -290 ml 853 ml 546 ml Physical Exam Physical Exam: GENERAL: Well-developed and well-nourished male, sedated , on vent HEENT: Normocephalic, atraumatic, redness and erythema of both eyes improved, NG tube present NECK: right dialysis catheter present clean,central line changed ( 05/11) Trach + HEART: S1, S2. LUNGS: Decreased breath sounds. ABDOMEN: Less distended, bowel sounds present GENITOURINARY: Nieves in place. EXTREMITIES: Edema present. DERMATOLOGIC: Warm, dry, no generalized rash. NEUROLOGIC: Opens eyes PICC line clean General: No acute distress, severe distress, Other (Alert and awake, trach collar site is intact without any infection) Heart: Regular rate, Normal S1, Normal S2 Lungs: Crackles Abdomen: Normal bowel sounds, Other (ND) Extremities: No clubbing, No cyanosis, Other (Lower extremity edema) Skin: No rashes, No breakdown, No significant lesion Labs Labs: Laboratory Tests Test 06/05/21 10:50 06/05/21 16:30 06/05/21 23:50 06/06/21 05:50 Sodium Level 138 mmol/L (136-145) 141 mmol/L (136-145) Potassium Level 3.7 mmol/L (3.5-5.1) 4.3 mmol/L (3.5-5.1) Chloride Level 104 mmol/L (98-107) 105 mmol/L (98-107) Carbon Dioxide Level 27 mmol/L (21-32) 27 mmol/L (21-32) Anion Gap 7 (6-14) 9 (6-14) Blood Urea Nitrogen 39 mg/dL (8-26) 29 mg/dL (8-26) Creatinine 2.2 mg/dL (0.7-1.3) 1.9 mg/dL (0.7-1.3) Estimated GFR (Cockcroft-Gault) 35.6 42.1 Glucose Level 211 mg/dL (70-99) 188 mg/dL (70-99) Calcium Level 8.3 mg/dL (8.5-10.1) 8.2 mg/dL (8.5-10.1) Glucose (Fingerstick) 195 mg/dL (70-99) 215 mg/dL (70-99) Phosphorus Level 2.8 mg/dL (2.6-4.7) Magnesium Level 2.0 mg/dL (1.8-2.4) Test 06/06/21 05:51 Glucose (Fingerstick) 180 mg/dL (70-99) Assessment and Plan Assessmemt and Plan Problems Medical Problems: (1) Elevated troponin Status: Acute (2) Person under investigation for COVID-19 Status: Acute (3) Pulmonary edema Status: Acute Comment Review of Relevant I have reviewed the following items juanita (where applicable) has been applied. Medications: Current Medications Medications (Trade) Dose Ordered Sig/Jodie Route PRN Reason Start Time Stop Time Status Last Admin Dose Admin Fluconazole/ Sodium Chloride 100 ml @ 100 mls/hr Q24H IV 06/05/21 09:00 06/06/21 08:27 Sodium Chloride 90 meq/Potassium Chloride 30 meq/ Potassium Phosphate 13.6 mmol/Magnesium Sulfate 12 meq/ Multivitamins 5 ml/Zinc/Copper/ Manganese/ Selenium 1 ml/ Total Parenteral Nutrition/Amino Acids/Dextrose 1,200 ml @ 50 mls/hr TPN CONT IV 06/05/21 22:00 06/06/21 21:59 06/05/21 22:12 Albumin Human 100 ml @ 100 mls/hr 1X PRN PRN IV Hypotension 06/05/21 10:15 06/05/21 16:14 DC 06/05/21 11:10 Justifications for Admission General Conditions Altered mental status?: Yes Justification of admission: Patient has tachycardia (> 100 beats per minute) or hypotension (SBP < 90 mm Hg) leading to inadequate systemic perfusion as indicated by severe/persistent altered mental status. Other Justification BRIAN MONTES MD Jun 06, 2021 08:57
--- NOTE | 2021-06-06 08:59 | PDOC ---
DATE OF SERVICE DATE: 06/06/21 TIME: 08:57 SUBJECTIVE ROS remains vent dependent OBJECTIVE Vital Signs Vital Signs Date Time Temp Pulse Resp B/P (MAP) Pulse Ox O2 Delivery O2 Flow Rate FiO2 06/06/21 08:42 100 Ventilator 06/06/21 08:21 99.1 76 20 163/68 (99) 99.1 I & 0 Intake and Output 06/06/21 07:00 Intake Total 2119 ml Output Total 1010 ml Balance 1109 ml IV Total 2119 ml Output Urine Total 760 ml Gastric Drainage Total 250 ml PHYSICAL EXAM Physical Exam GENERAL: sedated, on Vent HEENT: NG tube present NECK: Trach + HEART: S1, S2. LUNGS: Decreased breath sounds. ABDOMEN: bowel sounds present GENITOURINARY: Nieves in place. EXTREMITIES: Edema present. DERMATOLOGIC: Warm, dry, no generalized rash. NEUROLOGIC: Opens eyes DIAGNOSIS/ASSESSMENT Assessment & Plan ILDA-ATN- requiring dialysis ,last treatment 06/05 ; Non Oliguric , marginal UOp Currently no indication for dialysis today discussed treatment plan with Ashly ,Access new Temp HDC placed 06/04 Fungemia- on antifungal HypoNatremia- Resolved HypoKalemia CKD stage 3 Acute Hypoxic Resp failure - S/P Trach COVID 19 Pneumonia Anemia Nutrition on TPn COMMENT/RELEVANT DATA Meds Current Medications Medications (Trade) Dose Ordered Sig/Jodie Start Time Stop Time Status Last Admin Dose Admin Acetaminophen (Tylenol Supp) 650 mg PRN Q6HRS PRN 05/29/21 16:15 05/29/21 16:37 650 MG Acetaminophen (Tylenol) 650 mg PRN Q6HRS PRN 04/24/21 14:00 Cancel Albumin Human 100 ml @ 100 mls/hr 1X PRN PRN 06/05/21 10:15 06/05/21 16:14 DC 06/05/21 11:10 100 MLS/HR Amiodarone HCl (Cordarone) 200 mg DAILY 04/28/21 09:00 05/22/21 16:27 DC 05/21/21 11:07 200 MG Amiodarone HCl 150 mg/Dextrose 103 ml @ 618 mls/hr 1X ONCE 04/27/21 02:30 04/27/21 02:39 DC 04/27/21 02:30 618 MLS/HR Amiodarone HCl 450 mg/Dextrose 259 ml @ 0 mls/hr 1X ONCE 05/22/21 16:30 05/22/21 16:34 DC 05/22/21 16:59 33 MLS/HR Amlodipine Besylate (Norvasc) 10 mg DAILY 05/16/21 09:00 05/29/21 08:07 10 MG Aspirin (Aspirin Chewable) 81 mg DAILYWBKFT 05/03/21 10:00 05/29/21 08:05 81 MG Aspirin (Ecotrin) 81 mg DAILYWBKFT 04/25/21 08:00 05/03/21 09:56 DC 05/02/21 07:20 81 MG Atorvastatin Calcium (Lipitor) 80 mg QHS 04/24/21 21:00 05/23/21 19:58 80 MG Bisacodyl (Dulcolax Supp) 10 mg 1X ONCE 06/04/21 16:30 06/04/21 16:31 DC 06/04/21 17:56 10 MG Bupivacaine HCl/ Epinephrine Bitart (Sensorcain-Epi 0.5%-1:950955 Mpf) 30 ml STK-MED ONCE 05/15/21 07:05 05/15/21 07:06 DC Carvedilol (Coreg) 3.125 mg BIDWMEALS 04/24/21 17:00 04/25/21 15:42 DC 04/25/21 09:23 3.125 MG Cefepime HCl (Maxipime) 1 gm Q12HR 05/30/21 09:00 06/05/21 07:34 DC 06/04/21 20:31 1 GM Cellulose (Surgicel Fibrillar 1x2) 1 each STK-MED ONCE 05/15/21 07:05 05/15/21 07:06 DC 05/15/21 09:40 1 EACH Chlorhexidine Gluconate (Peridex) 15 ml BID 04/24/21 21:00 04/25/21 11:19 DC 04/24/21 20:49 15 ML Daptomycin 600 mg/ Sodium Chloride 50 ml @ 100 mls/hr Q48H 05/04/21 15:00 05/06/21 08:07 DC 05/04/21 15:24 100 MLS/HR Dexamethasone Sodium Phosphate (Decadron) 4 mg STK-MED ONCE 05/15/21 07:53 05/15/21 07:53 DC Dexmedetomidine HCl 400 mcg/ Sodium Chloride 100 ml @ 0 mls/hr CONT PRN 05/04/21 10:30 06/06/21 05:53 16.4 MLS/HR Dextrose (Dextrose 50%-Water Syringe) 12.5 gm PRN Q15MIN PRN 05/03/21 14:00 Digoxin (Lanoxin) 250 mcg 1X ONCE 04/26/21 13:00 04/26/21 13:05 DC 04/26/21 15:02 250 MCG Ephedrine Sulfate (ePHEDrine PF IN SALINE SYRINGE) 50 mg STK-MED ONCE 05/15/21 09:15 05/15/21 09:15 DC Erythromycin (Romycin) 0.25 inch BID 05/17/21 12:00 05/25/21 13:24 DC 05/25/21 07:43 0.25 INCH Etomidate (Amidate) 20 mg STK-MED ONCE 04/24/21 13:38 04/24/21 13:38 DC Fentanyl Citrate 30 ml @ 0 mls/hr CONT PRN 04/24/21 14:00 06/06/21 02:14 2.5 MLS/HR Fentanyl Citrate (Fentanyl 2ml Vial) 25 mcg PRN Q1HR PRN 04/24/21 14:00 05/17/21 16:12 25 MCG Fluconazole/ Sodium Chloride 100 ml @ 100 mls/hr Q24H 06/05/21 09:00 06/06/21 08:27 100 MLS/HR Furosemide (Lasix) 80 mg TID 05/27/21 09:00 06/01/21 11:08 DC 05/31/21 20:10 80 MG Heparin Sodium (Porcine) (Heparin Sodium) 5,000 unit Q8HRS 05/18/21 10:00 05/30/21 11:07 DC 05/30/21 06:07 5,000 UNIT Heparin Sodium/ Dextrose 250 ml @ 0 mls/hr CONT PRN 04/24/21 16:45 05/01/21 12:32 DC 05/01/21 05:10 10 MLS/HR Hydralazine HCl (Apresoline Inj) 10 mg PRN QID PRN 05/22/21 16:30 05/29/21 08:08 10 MG Hydralazine HCl (Apresoline) 25 mg QID 05/10/21 10:00 05/22/21 16:27 DC 05/21/21 17:24 25 MG Info (Anti-Coagulation Monitoring By Pharmacy) 1 each PRN DAILY PRN 04/25/21 13:00 05/02/21 07:36 DC 04/26/21 08:51 1 EACH Info (PHARMACY MONITORING -- do not chart) 1 each PRN DAILY PRN 06/05/21 10:15 Info (Tpn Per Pharmacy) 1 each PRN DAILY PRN 05/22/21 10:00 06/05/21 09:29 1 EACH Insulin Glargine (Lantus Syringe) 20 unit BID 05/31/21 09:00 06/06/21 08:44 20 UNIT Insulin Human Lispro (HumaLOG) 0-5 UNITS Q6HRS 05/03/21 18:00 06/06/21 05:54 2 UNITS Labetalol HCl (Normodyne Iv Push) 20 mg PRN Q2HR PRN 05/01/21 12:30 05/27/21 15:43 20 MG Lidocaine HCl (Buffered Lidocaine 1%) 6 ml 1X ONCE 06/04/21 09:30 06/04/21 09:31 DC 06/04/21 09:34 2 ML Lidocaine HCl (Lidocaine Pf 2% Vial) 5 ml STK-MED ONCE 05/15/21 07:53 05/15/21 07:53 DC Linezolid/Dextrose 300 ml @ 300 mls/hr Q12HR 05/31/21 09:00 UNV Lorazepam (Ativan Inj) 0.25 mg PRN Q4HRS PRN 05/21/21 09:00 06/02/21 04:30 0.25 MG Magnesium Sulfate 50 ml @ 25 mls/hr 1X ONCE 06/02/21 08:45 06/02/21 10:44 DC 06/02/21 09:53 25 MLS/HR Meropenem 500 mg/ Sodium Chloride 50 ml @ 100 mls/hr DAILY 05/23/21 09:00 05/25/21 11:55 DC 05/25/21 07:42 100 MLS/HR Metoprolol Tartrate (Lopressor Vial) 5 mg Q6HRS 04/25/21 18:00 06/06/21 05:53 5 MG Metronidazole 100 ml @ 100 mls/hr Q12HR 05/30/21 09:00 06/05/21 07:34 DC 06/04/21 20:32 100 MLS/HR Micafungin Sodium 100 mg/Dextrose 100 ml @ 100 mls/hr Q24H 06/02/21 09:00 06/05/21 07:34 DC 06/04/21 09:54 100 MLS/HR Midazolam HCl (Versed) 5 mg 1X ONCE 05/24/21 15:15 05/24/21 15:16 DC 05/24/21 15:20 5 MG Montelukast Sodium (Singulair) 10 mg HS 04/24/21 21:00 05/23/21 19:58 10 MG Multi-Ingred Cream/Lotion/Oil/ Oint (Artificial Tears Eye Ointment) 1 danielito PRN Q1HR PRN 05/07/21 16:00 05/10/21 20:51 1 DANIELITO Nicardipine HCl 50 mg/Sodium Chloride 250 ml @ 25 mls/hr CONT PRN 05/06/21 18:45 05/20/21 19:47 37.5 MLS/HR Norepinephrine Bitartrate 8 mg/ Dextrose 258 ml @ 25.852 mls/ hr CONT PRN 05/02/21 21:00 05/09/21 06:10 DC 05/02/21 21:22 25.852 MLS/HR Nystatin (Nystop) 1 danielito BID 05/16/21 21:00 06/06/21 08:28 1 DANIELITO Ondansetron HCl (Zofran) 4 mg STK-MED ONCE 05/15/21 07:53 05/15/21 07:53 DC Pantoprazole Sodium (PROTONIX VIAL for IV PUSH) 40 mg DAILYAC 04/26/21 09:30 06/06/21 08:27 40 MG Phenylephrine HCl (PHENYLEPHRINE in 0.9% NACL PF) 1 mg STK-MED ONCE 05/15/21 07:51 05/15/21 07:51 DC Potassium Bicarbonate (Potassium Effervescent Tablet) 40 meq 1X ONCE 05/19/21 08:30 05/19/21 08:31 DC 05/19/21 08:50 40 MEQ Potassium Chloride/Water 100 ml @ 100 mls/hr Q1H 05/23/21 10:45 05/23/21 12:44 DC 05/23/21 13:17 100 MLS/HR Potassium Phosphate 10 mmol/ Sodium Chloride 103.3333 ml @ 51.667 m... Q2H 06/01/21 12:00 06/01/21 15:59 DC 06/01/21 13:24 51.667 MLS/HR Potassium Phosphate 13.6 mmol/Sodium Chloride 254.5333 ml @ 127.... 1X ONCE 05/31/21 12:00 05/31/21 13:59 DC 05/31/21 12:08 127.267 MLS/HR Potassium Phosphate 20 mmol/ Sodium Chloride 256.6667 ml @ 62.5 mls/hr 1X ONCE 05/13/21 12:15 05/13/21 16:21 UNV Potassium Phosphate 30 mmol/ Sodium Chloride 260 ml @ 62.5 mls/hr 1X ONCE 05/13/21 12:15 05/13/21 16:24 UNV Prochlorperazine Edisylate (Compazine) 5 mg PACU PRN PRN 05/15/21 06:00 05/16/21 05:59 DC Propofol 100 ml @ 4.185 mls/ hr CONT PRN 06/02/21 09:30 06/06/21 05:55 12.555 MLS/HR Propofol (Diprivan) 200 mg STK-MED ONCE 05/15/21 07:53 05/15/21 07:53 DC Remdesivir 100 mg/ Sodium Chloride 230 ml @ 460 mls/hr Q24H 04/26/21 17:30 04/29/21 17:59 DC 04/29/21 13:51 460 MLS/HR Remdesivir 200 mg/ Sodium Chloride 210 ml @ 210 mls/hr 1X ONCE 04/25/21 17:30 04/25/21 18:29 DC 04/25/21 17:09 210 MLS/HR Ringer's Solution 1,000 ml @ 30 mls/hr Q24H 05/15/21 06:00 05/15/21 17:59 DC 05/15/21 07:04 30 MLS/HR Rocuronium [place] (Zemuron) 50 mg STK-MED ONCE 05/15/21 07:06 05/15/21 07:07 DC Sodium Bicarbonate (Sodium Bicarb Adult 8.4% Syr) 50 meq 1X ONCE 04/27/21 09:45 04/27/21 09:46 DC 04/27/21 09:50 50 MEQ Sodium Chloride 1,000 ml @ 400 mls/hr Q2H30M PRN 06/05/21 10:15 06/05/21 22:14 DC Sodium Chloride (Normal Saline Flush) 10 ml 1X PRN PRN 06/01/21 08:00 06/02/21 07:59 DC Sodium Chloride 90 meq/Potassium Chloride 25 meq/ Magnesium Sulfate 10 meq/Calcium Gluconate 5 meq/ Multivitamins 5 ml/Zinc/Copper/ Manganese/ Selenium 1 ml/ Total Parenteral Nutrition/Amino Acids/Dextrose/ Fat Emulsion Intravenous 1,080 ml @ 45 mls/hr TPN CONT 05/22/21 22:00 05/23/21 21:59 DC 05/22/21 21:22 45 MLS/HR Sodium Chloride 90 meq/Potassium Chloride 30 meq/ Potassium Phosphate 13.6 mmol/Magnesium Sulfate 10 meq/ Multivitamins 5 ml/Zinc/Copper/ Manganese/ Selenium 1 ml/ Total Parenteral Nutrition/Amino Acids/Dextrose/ Fat Emulsion Intravenous 1,200 ml @ 50 mls/hr TPN CONT 06/01/21 22:00 06/02/21 21:59 DC 06/01/21 21:33 50 MLS/HR Sodium Chloride 90 meq/Potassium Chloride 30 meq/ Potassium Phosphate 13.6 mmol/Magnesium Sulfate 12 meq/ Multivitamins 5 ml/Zinc/Copper/ Manganese/ Selenium 1 ml/ Total Parenteral Nutrition/Amino Acids/Dextrose 1,200 ml @ 50 mls/hr TPN CONT 06/05/21 22:00 06/06/21 21:59 06/05/21 22:12 50 MLS/HR Sodium Chloride 90 meq/Potassium Chloride 30 meq/ Potassium Phosphate 13.6 mmol/Magnesium Sulfate 12 meq/ Multivitamins 5 ml/Zinc/Copper/ Manganese/ Selenium 1 ml/ Total Parenteral Nutrition/Amino Acids/Dextrose/ Fat Emulsion Intravenous 1,200 ml @ 50 mls/hr TPN CONT 06/02/21 22:00 06/03/21 21:59 DC 06/02/21 21:31 50 MLS/HR Sodium Chloride 90 meq/Potassium Chloride 50 meq/ Magnesium Sulfate 10 meq/Calcium Gluconate 5 meq/ Multivitamins 5 ml/Zinc/Copper/ Manganese/ Selenium 1 ml/ Total Parenteral Nutrition/Amino Acids/Dextrose/ Fat Emulsion Intravenous 960 ml @ 40 mls/hr TPN CONT 05/27/21 22:00 05/28/21 21:59 DC 05/27/21 22:03 40 MLS/HR Sodium Chloride 90 meq/Potassium Chloride 50 meq/ Potassium Phosphate 5 mmol/ Magnesium Sulfate 10 meq/Calcium Gluconate 5 meq/ Multivitamins 5 ml/Zinc/Copper/ Manganese/ Selenium 1 ml/ Total Parenteral Nutrition/Amino Acids/Dextrose/ Fat Emulsion Intravenous 1,200 ml @ 50 mls/hr TPN CONT 05/30/21 22:00 05/31/21 21:59 DC 05/30/21 21:57 50 MLS/HR Sodium Phosphate 15 mmol/Dextrose 105 ml @ 105 mls/hr 1X ONCE 05/29/21 11:00 05/29/21 11:59 DC 05/29/21 11:53 105 MLS/HR Sodium Phosphate 15 mmol/Sodium Chloride 105 ml @ 105 mls/hr 1X ONCE 05/29/21 11:45 05/29/21 12:44 UNV Succinylcholine Chloride (Anectine) 200 mg STK-MED ONCE 04/24/21 13:38 04/24/21 13:38 DC Vecuronium [place] (Norcuron Bolus) 6 mg PRN Q6HRS PRN 04/30/21 11:15 05/14/21 09:12 6 MG Lab Laboratory Tests Test 06/05/21 10:50 06/05/21 16:30 06/05/21 23:50 06/06/21 05:50 Sodium Level 138 mmol/L (136-145) 141 mmol/L (136-145) Potassium Level 3.7 mmol/L (3.5-5.1) 4.3 mmol/L (3.5-5.1) Chloride Level 104 mmol/L (98-107) 105 mmol/L (98-107) Carbon Dioxide Level 27 mmol/L (21-32) 27 mmol/L (21-32) Anion Gap 7 (6-14) 9 (6-14) Blood Urea Nitrogen 39 mg/dL (8-26) 29 mg/dL (8-26) Creatinine 2.2 mg/dL (0.7-1.3) 1.9 mg/dL (0.7-1.3) Estimated GFR (Cockcroft-Gault) 35.6 42.1 Glucose Level 211 mg/dL (70-99) 188 mg/dL (70-99) Calcium Level 8.3 mg/dL (8.5-10.1) 8.2 mg/dL (8.5-10.1) Glucose (Fingerstick) 195 mg/dL (70-99) 215 mg/dL (70-99) Phosphorus Level 2.8 mg/dL (2.6-4.7) Magnesium Level 2.0 mg/dL (1.8-2.4) Test 06/06/21 05:51 Glucose (Fingerstick) 180 mg/dL (70-99) Results All relevant outside records, renal labs, imaging studies, telemetry/EKG's were reviewed. Justicifation of Admission Dx: Justifications for Admission: Justification of Admission Dx: Yes Aspiration Pneumonia: Hemodynamic Instability JASMEET LAM MD Jun 06, 2021 08:59
--- NOTE | 2021-06-06 09:23 | PDOC ---
PULMONARY PROGRESS NOTES DATE: 06/06/21 TIME: 09:20 Subjective on pressure support mode. Tolerating well so far, peep 5 fio2 40% Awake. Not in any obvious respiratory distress. Vitals Vital Signs Date Time Temp Pulse Resp B/P (MAP) Pulse Ox O2 Delivery O2 Flow Rate FiO2 06/06/21 08:42 100 Ventilator 06/06/21 08:21 99.1 76 20 163/68 (99) 99.1 Comments Tracheostomy ros unable to obtain sedated on vent General: No acute distress HEENT: Other (Trachea midline nc at perrl nose clear neck trach site ok no lad) Lungs: Crackles Cardiovascular: S1, S2 Abdomen: Soft Extremities: No Edema Skin: Warm Labs Laboratory Tests Test 06/04/21 11:20 06/04/21 17:55 06/04/21 23:36 06/05/21 05:34 Glucose (Fingerstick) 203 mg/dL (70-99) 205 mg/dL (70-99) 213 mg/dL (70-99) 201 mg/dL (70-99) Test 06/05/21 10:50 06/05/21 16:30 06/05/21 23:50 06/06/21 05:50 Sodium Level 138 mmol/L (136-145) 141 mmol/L (136-145) Potassium Level 3.7 mmol/L (3.5-5.1) 4.3 mmol/L (3.5-5.1) Chloride Level 104 mmol/L (98-107) 105 mmol/L (98-107) Carbon Dioxide Level 27 mmol/L (21-32) 27 mmol/L (21-32) Anion Gap 7 (6-14) 9 (6-14) Blood Urea Nitrogen 39 mg/dL (8-26) 29 mg/dL (8-26) Creatinine 2.2 mg/dL (0.7-1.3) 1.9 mg/dL (0.7-1.3) Estimated GFR (Cockcroft-Gault) 35.6 42.1 Glucose Level 211 mg/dL (70-99) 188 mg/dL (70-99) Calcium Level 8.3 mg/dL (8.5-10.1) 8.2 mg/dL (8.5-10.1) Glucose (Fingerstick) 195 mg/dL (70-99) 215 mg/dL (70-99) Phosphorus Level 2.8 mg/dL (2.6-4.7) Magnesium Level 2.0 mg/dL (1.8-2.4) Test 06/06/21 05:51 Glucose (Fingerstick) 180 mg/dL (70-99) Laboratory Tests Test 06/05/21 10:50 06/05/21 16:30 06/05/21 23:50 06/06/21 05:50 Sodium Level 138 mmol/L (136-145) 141 mmol/L (136-145) Potassium Level 3.7 mmol/L (3.5-5.1) 4.3 mmol/L (3.5-5.1) Chloride Level 104 mmol/L (98-107) 105 mmol/L (98-107) Carbon Dioxide Level 27 mmol/L (21-32) 27 mmol/L (21-32) Anion Gap 7 (6-14) 9 (6-14) Blood Urea Nitrogen 39 mg/dL (8-26) 29 mg/dL (8-26) Creatinine 2.2 mg/dL (0.7-1.3) 1.9 mg/dL (0.7-1.3) Estimated GFR (Cockcroft-Gault) 35.6 42.1 Glucose Level 211 mg/dL (70-99) 188 mg/dL (70-99) Calcium Level 8.3 mg/dL (8.5-10.1) 8.2 mg/dL (8.5-10.1) Glucose (Fingerstick) 195 mg/dL (70-99) 215 mg/dL (70-99) Phosphorus Level 2.8 mg/dL (2.6-4.7) Magnesium Level 2.0 mg/dL (1.8-2.4) Test 06/06/21 05:51 Glucose (Fingerstick) 180 mg/dL (70-99) Medications Active Scripts Medications Dose Route/Sig Max Daily Dose Days Date Category Glyburide 2.5 Mg Tablet 1 Tab PO DAILY 04/19/21 Rx Polyethylene Glycol 3350 17 Gm Powd.pack 17 Gm PO DAILY 04/19/21 Rx Dok (Docusate Sodium) 100 Mg Capsule 100 Mg PO PRN DAILY PRN 30 04/19/21 Rx Bisacodyl 5 Mg Tablet.dr 5 Mg PO PRN DAILY PRN 14 04/19/21 Rx Acetaminophen 325 Mg Tablet 650 Mg PO PRN Q4HRS PRN 14 04/19/21 Rx Aspirin Ec (Aspirin) 81 Mg Tablet. 81 Mg PO DAILYWBKFT 30 04/19/21 Rx Hydralazine Hcl 25 Mg Tablet 25 Mg PO QID 30 04/19/21 Rx Fenofibrate 54 Mg Tablet 1 Tab PO DAILY 04/17/21 Reported Potassium Chloride (Potassium Chloride) 20 Meq Tablet.er 20 Meq PO DAILY 04/17/21 Reported Coreg (Carvedilol) 12.5 Mg Tablet 37.5 Mg PO BIDWMEALS 04/17/21 Reported Rosuvastatin Calcium 40 Mg Tablet 40 Mg PO QHS 04/17/21 Reported Gabapentin (Gabapentin) 100 Mg Capsule 200 Mg PO BID 04/17/21 Reported Montelukast Sodium Tablet (Montelukast Sodium) 10 Mg Tablet 10 Mg PO HS 04/17/21 Reported Protonix (Pantoprazole Sodium) 20 Mg Tablet.dr 2 Tab PO DAILY 04/17/21 Reported Amlodipine Besylate 5 Mg Tablet 5 Mg PO DAILY 04/17/21 Reported Furosemide 40 Mg Tablet 1 Tab PO DAILY 04/17/21 Reported Proair Hfa Inhaler (Albuterol Sulfate) 8.5 Gm Hfa.aer.ad 2 Puff IH PRN Q4-6HRS PRN 04/16/21 Reported Advair 100-50 Diskus (Fluticasone/Salmeterol) 1 Each Disk.w.dev 1 Puff IH BID 04/16/21 Reported Comments Chest x-ray 06/04/2021 reviewed. Bilateral interstitial infiltrates and a small right lower lobe effusion consistent with CHF. Impression . IMPRESSION: 1. Acute hypoxic respiratory failure, multifactorial/COVID-19 viral pneumonia/ARDS, ongoing, intubated 04/25/2021, now status post tracheostomy 05/15/[address] chest with bilateral diffuse interstitial infiltrates without any significant pleural effusion 3. Leukocytosis, sepsis--improved 4. Non-ST segment elevation MN 5. History of tobacco use, suspect COPD, unknown FEV1 6. Chronic kidney disease.== HD as needed per renal 7. Metabolic acidosis multifactorial 8. Abnormal chest x-ray 9. Hypoglycemia, continue to monitor--- resolved 10. Hypotension, suspect volume deficit,/possible sepsis--- resolved 11. Fever--improved 12. Anemia--improved 13. Atrial fibrillation with rapid ventricular response, currently rate controlled 14. Ileus 15. ? fungemia Plan . Updated 06/06/2021 Continue current ventilatory support, 500/40/5 Will initiate trach shield trial again. Follow infectious disease recommendations. Currently on fluconazole. Continue Precedex It has been difficult to wean the patient due to nonpulmonary issues such as arrhythmias, worsening hypertension and tachycardia and current ileus. Monitor HGB Follow GI recs-- ileus, PEG tube on hold, Follow nephrology recs-- hemodialysis per nephro Follow infectious disease recommendations for ABX Continue TPN for nutritional support DVT/GI PPX: sq heparin-- on hold D/W RN and RT Possible PEG tube placement next week Pt. is DNR Updated 06/05/21 Continue current ventilatory support, 500/40/5 Will initiate trach shield trial again. f/u yeast in , Continue cefepime and flagyl, Cont micafungin June 02, DC Zyvox Continue Precedex fentanyl tachypneac propofol added It has been difficult to wean the patient due to nonpulmonary issues such as arrhythmias, worsening hypertension and tachycardia and current ileus. Monitor HGB Follow GI recs-- ileus, PEG tube on hold, Follow nephrology recs-- hemodialysis per nephro Follow infectious disease recommendations for ABX Continue TPN for nutritional support DVT/GI PPX: sq heparin-- on hold D/W RN and RT Pt. is DNR Updated 06/04/21 Continue current ventilatory support, 500/40/5 Will initiate trach shield trial after replacement of dialysis catheter. f/u yeast in , Continue cefepime and flagyl, Cont micafungin June 02, DC Zyvox Continue Precedex fentanyl tachypneac propofol added It has been difficult to wean the patient due to nonpulmonary issues such as arrhythmias, worsening hypertension and tachycardia and current ileus. Monitor HGB Follow GI recs-- ileus, PEG tube on hold, Follow nephrology recs-- hemodialysis per nephro Follow infectious disease recommendations for ABX Continue TPN for nutritional support DVT/GI PPX: sq heparin-- on hold D/W RN and RT Pt. is DNR Updated 06/03/21 Continue current ventilatory support, 20/500/40/5 f/u yeast in bc, Continue cefepime and flagyl, Cont micafungin June 02, DC Zyvox Continue Precedex fentanyl tachypneac propofol added It has been difficult to wean the patient due to nonpulmonary issues such as arrhythmias, worsening hypertension and tachycardia and current ileus. Monitor HGB Follow GI recs-- ileus, PEG tube on hold, Follow nephrology recs-- hemodialysis per nephro Follow infectious disease recommendations for ABX Continue TPN for nutritional support DVT/GI PPX: sq heparin-- on hold D/W RN and RT Pt. is DNR Updated 06/02/21 Continue current ventilatory support, 20/500/40/5 weaning as tolerated Continue Precedex fentanyl tachypneac will add propofol It has been difficult to wean the patient due to nonpulmonary issues such as arrhythmias, worsening hypertension and tachycardia and current ileus. Monitor HGB Follow GI recs-- ileus, PEG tube on hold, Follow nephrology recs-- hemodialysis per nephro Follow infectious disease recommendations for ABX Continue TPN for nutritional support DVT/GI PPX: sq heparin-- on hold D/W RN and RT Pt. is DNR Updated 06/01/21 Continue current ventilatory support, 20/500/40/5 Continue Precedex for sedation It has been difficult to wean the patient due to nonpulmonary issues such as arrhythmias, worsening hypertension and tachycardia and current ileus. Monitor HGB Follow GI recs-- ileus, PEG tube on hold, Follow nephrology recs--currently on hemodialysis Follow infectious disease recommendations for ABX Continue TPN for nutritional support DVT/GI PPX: sq heparin-- on hold D/W RN and RT Pt. is DNR CC time 30 minutes Updated 05/31/21 Continue current ventilatory support, 20/500/40/5 Continue Precedex for sedation Monitor HGB Follow GI recs-- ileus, PEG tube on hold, nursing reports 75 cc of NG output Follow nephrology recs--currently on hemodialysis Follow infectious disease recommendations for ABX Continue TPN for nutritional support DVT/GI PPX: sq heparin-- on hold D/W RN and RT Pt. is DNR CC time 30 minutes JONES FISHMAN MD Jun 06, 2021 09:23
[2021-06-06] MEDS: TPN PER PHARMACY MC PRN (09:58)
--- NOTE | 2021-06-06 10:01 | NUR ---
Pharmacy TPN Dosing Note S: NILAM LAN is a 75 year old M Currently receiving Central Continuous TPN started 05/22/21 B:Pertinent PMH: ILEUS Height: 6 feet, 2 inches Weight: 139.118474 kg Current diet: NPO LABS: Sodium: 141 Potassium: 4.3 Chloride: 105 Calcium: 8.2 Corrected Calcium: 10.12 Magnesium: 2 CO2: 27 SCr: 1.9 Glucose: 180-215 Albumin: 1.6 AST: 27 ALT: 19 TPN FORMULA: TPN TYPE: Central Continuous AMINO ACIDS: 90 gm DEXTROSE: 290 gm LIPIDS: 0 gm SODIUM CHLORIDE: 90 mEq SODIUM ACETATE: - mEq SODIUM PHOSPHATE: - mmol POTASSIUM CHLORIDE: 30 mEq POTASSIUM ACETATE: - mEq POTASSIUM PHOSPHATE: 13.6 mmol MAGNESIUM: 12 mEq CALCIUM: 0 mEq INSULIN: - units MULTIPLE VITAMIN: 5 ml TRACE ELEMENTS: 1 ml(s) TPN PLAN: labs appear stable; continue same formula. R: Continue TPN as ordered Will monitor electrolytes, glucose, and tolerance to TPN. FRANKIE JOHN [facility], 06/06/21 100
--- NOTE | 2021-06-06 10:04 | PDOC ---
G I PROGRESS NOTE Reason for Follow-up OP dysphagia/PEG? Subjective Trached, on ventilator. Tracks? Objective Looks like fair amount in suction canister. No stools charted. Physical Exam Lungs clear anteriorly. RRR Abdomen fairly soft, hernia, hear no bowel sounds. Review of Relevant I have reviewed the following items juanita (where applicable) has been applied. Labs Laboratory Tests Test 06/04/21 11:20 06/04/21 17:55 06/04/21 23:36 06/05/21 05:34 Glucose (Fingerstick) 203 mg/dL (70-99) 205 mg/dL (70-99) 213 mg/dL (70-99) 201 mg/dL (70-99) Test 06/05/21 10:50 06/05/21 16:30 06/05/21 23:50 06/06/21 05:50 Sodium Level 138 mmol/L (136-145) 141 mmol/L (136-145) Potassium Level 3.7 mmol/L (3.5-5.1) 4.3 mmol/L (3.5-5.1) Chloride Level 104 mmol/L (98-107) 105 mmol/L (98-107) Carbon Dioxide Level 27 mmol/L (21-32) 27 mmol/L (21-32) Anion Gap 7 (6-14) 9 (6-14) Blood Urea Nitrogen 39 mg/dL (8-26) 29 mg/dL (8-26) Creatinine 2.2 mg/dL (0.7-1.3) 1.9 mg/dL (0.7-1.3) Estimated GFR (Cockcroft-Gault) 35.6 42.1 Glucose Level 211 mg/dL (70-99) 188 mg/dL (70-99) Calcium Level 8.3 mg/dL (8.5-10.1) 8.2 mg/dL (8.5-10.1) Glucose (Fingerstick) 195 mg/dL (70-99) 215 mg/dL (70-99) Phosphorus Level 2.8 mg/dL (2.6-4.7) Magnesium Level 2.0 mg/dL (1.8-2.4) Test 06/06/21 05:51 Glucose (Fingerstick) 180 mg/dL (70-99) Laboratory Tests Test 06/05/21 10:50 06/05/21 16:30 06/05/21 23:50 06/06/21 05:50 Sodium Level 138 mmol/L (136-145) 141 mmol/L (136-145) Potassium Level 3.7 mmol/L (3.5-5.1) 4.3 mmol/L (3.5-5.1) Chloride Level 104 mmol/L (98-107) 105 mmol/L (98-107) Carbon Dioxide Level 27 mmol/L (21-32) 27 mmol/L (21-32) Anion Gap 7 (6-14) 9 (6-14) Blood Urea Nitrogen 39 mg/dL (8-26) 29 mg/dL (8-26) Creatinine 2.2 mg/dL (0.7-1.3) 1.9 mg/dL (0.7-1.3) Estimated GFR (Cockcroft-Gault) 35.6 42.1 Glucose Level 211 mg/dL (70-99) 188 mg/dL (70-99) Calcium Level 8.3 mg/dL (8.5-10.1) 8.2 mg/dL (8.5-10.1) Glucose (Fingerstick) 195 mg/dL (70-99) 215 mg/dL (70-99) Phosphorus Level 2.8 mg/dL (2.6-4.7) Magnesium Level 2.0 mg/dL (1.8-2.4) Test 06/06/21 05:51 Glucose (Fingerstick) 180 mg/dL (70-99) Microbiology 06/02/21 Gram Stain - Final, Complete 06/02/21 Aerobic Culture - Final, Complete 06/02/21 Blood Culture - Preliminary, Resulted NO GROWTH AFTER 3 DAYS 05/30/21 Gram Stain Evaluation - Final, Complete 05/30/21 Respiratory Culture - Final, Complete Vitals/I & O Vital Sign - Last 24 Hours 06/05/21 06/05/21 06/05/21 06/05/21 11:00 11:25 12:00 12:00 Temp 98.3 98.3 Pulse 68 74 Resp 20 20 B/P (MAP) 79/46 (57) 162/77 (105) Pulse Ox 100 100 100 O2 Delivery Ventilator Ventilator Mechanical Ventilator Ventilator 06/05/21 06/05/21 06/05/2106/05/21 13:00 13:49 14:00 14:27 Pulse 80 76 Resp 20 20 18 B/P (MAP) 179/97 (124) 159/53 (88) Pulse Ox 100 100 100 100 O2 Delivery Ventilator Ventilator Ventilator Ventilator 06/05/21 06/05/21 06/05/21 06/05/21 14:47 14:50 14:57 15:00 Pulse 80 64 Resp 20 B/P (MAP) 146/51 146/51 (82) Pulse Ox 99 99 100 O2 Delivery Ventilator Ventilator Ventilator 06/05/21 06/05/21 06/05/21 06/05/21 16:00 16:00 17:00 17:29 Temp 98.6 98.6 Pulse 63 68 Resp 20 20 B/P (MAP) 170/68 (102) 163/79 (107) Pulse Ox 100 100 100 O2 Delivery Ventilator Mechanical Ventilator Ventilator Ventilator 06/05/21 06/05/21 06/05/21 06/05/21 18:00 18:40 19:00 20:00 Temp 99.0 99.0 Pulse 68 66 74 74 Resp 20 20 21 B/P (MAP) 157/79 (105) 157/79 168/72 (104) 136/47 (76) Pulse Ox 100 100 100 O2 Delivery Ventilator Ventilator Ventilator 06/05/21 06/05/21 06/05/21 06/05/21 20:00 20:00 21:00 22:00 Pulse 101 97 Resp 24 20 B/P (MAP) 188/78 (114) 178/69 (105) Pulse Ox 100 100 100 O2 Delivery Ventilator Mechanical Ventilator Ventilator Ventilator 06/05/21 06/05/21 06/05/21 06/06/21 23:00 23:00 23:53 00:00 Temp 98.9 98.9 Pulse 96 96 68 Resp 20 21 B/P (MAP) 175/74 (107) 175/74 99/58 (72) Pulse Ox 100 100 100 O2 Delivery Ventilator Ventilator Ventilator 06/06/21 06/06/21 06/06/21 06/06/21 00:00 01:00 02:00 03:00 Pulse 98 97 Resp 20 20 B/P (MAP) 164/94 (117) 186/94 (124) Pulse Ox 100 100 100 O2 Delivery Mechanical Ventilator Ventilator Ventilator Ventilator 906/06/21 06/06/21 06/06/21 03:00 04:00 04:00 05:00 Temp 99.3 99.3 Pulse 97 70 95 Resp 21 B/P (MAP) 158/78 (104) 156/67 (96) 159/67 (97) Pulse Ox 100 100 100 O2 Delivery Ventilator Ventilator Mechanical Ventilator Ventilator 06/06/21 06/06/21 06/06/21 06/06/21 05:00 05:53 06:00 08:12 Pulse 96 73 Resp 20 B/P (MAP) 159/67 149/65 (93) Pulse Ox 100 100 100 O2 Delivery Ventilator Ventilator Ventilator 06/06/21 06/06/21 08:21 08:42 Temp 99.1 99.1 Pulse 76 Resp 20 B/P (MAP) 163/68 (99) Pulse Ox 100 100 O2 Delivery Ventilator Ventilator Intake and Output 06/05/21 06/05/21 06/06/21 15:00 23:00 07:00 Intake Total 1103 ml 1016 ml Output Total 290 ml 250 ml 470 ml Balance -290 ml 853 ml 546 ml Problem List Problems Medical Problems: (1) Elevated troponin Status: Acute (2) Person under investigation for COVID-19 Status: Acute (3) Pulmonary edema Status: Acute Assessment Ileus persists? Last KUB probably reflects decompression rather than resolution. Plan of Care Note Continue as now. Could consider another trial of OG feeding and if tolerated, consider PEG. Justicifation of Admission Dx: Justifications for Admission: Justification of Admission Dx: Yes Aspiration Pneumonia: Hemodynamic Instability CLINT PRICE MD Jun 06, 2021 10:04
[2021-06-06] MEDS: BISACODYL 10 MG SUPP.RECT. PR PRN (11:43)
--- NOTE | 2021-06-06 15:32 | NUR ---
Wound Care Wound Type/Assessment: Patient was seen for wound care follow up. Patient continues with a large, intact blood blister on plantar side of right foot. Tissue is stable with no openings. Periwound intact and clear. Pt has peeling, yeasty skin breakdown in bilateral axilla and gluteal fold. Areas cleaned, Nystatin powder applied to axilla, recommend Calazime cream mixed with Nystatin powder to form a paste, and apply to the gluteal/perineal areas BID and PRN. Treatment Recommendations/Plan: Continue to skin prep R foot periwound, foam dressing was applied for protection. Recommend change every 3-4 days. Education provided: HERMILO Simons at bedside. Offloading surface/device: wedge, ICU bed, float feet with pillows and wedge, recommend end bedrail removed or elevate on purple wedge, as it's difficult for pt's feet to avoid touching d/t height. Pt repositioned onto left side at this time. Recommended Referrals/Tests: None Discharge Recommendations for dressings: Continue current treatment plan.
--- NOTE | 2021-06-06 15:58 | NUR ---
SS following up with discharge planning. SS reviewed pt chart and discussed with pt RN. Pt is currently on the vent at 40%. COVID19 recovered. NG in place. TPN. Ileus improving. Pt on Fentanyl, Propofol, and Precedex. Hemodialysis. Pt on IV Fluconazole. Pt accepted at [facility], ; fax [phone], pending insurance approval. SS will continue to follow for discharge planning.
[2021-06-06] MEDS: ATORVASTATIN CALCIUM 40 MG TABLET. PO SCH (20:42)
[2021-06-06] MEDS: MONTELUKAST SODIUM 10 MG TABLET. PO SCH (20:42)
[2021-06-06] MEDS ORDERED: [UNRECOGNIZED DRUG - OTHER] IV SCH (22:00)
[2021-06-06] MEDS ORDERED: DEXTROSE 70% IV SCH (22:00)
[2021-06-06] MEDS ORDERED: TOTAL PARENTERAL NUTRITION IV SCH (22:00)
[2021-06-06] MEDS ORDERED: AMINO ACID IV SCH (22:00)
[2021-06-07] VITALS (22 sets, daily range): BP systolic 88–226; BP diastolic 48–104
[2021-06-07] MEDS: METOPROLOL IV PUSH 5 MG/5 ML VIAL. IVP SCH ×4 (00:05→17:43)
[2021-06-07 03:50] LABS: BASO # 0.2 x10^3/uL (0.0-0.2); BASO % 1 % (0-3); EOS # 0.9 x10^3/uL (0.0-0.7); EOS % 7 % (0-3); HEMATOCRIT 21.4 % (39.0-53.0); LYMPH # 2.8 x10^3/uL (1.0-4.8); LYMPH % 24 % (24-48); MEAN CORPUSCULAR HEMOGLOBIN 28 pg (25-35); MEAN CORPUSCULAR HGB CONC 32 g/dL (31-37); MEAN CORPUSCULAR VOLUME 86 fL (79-100); MONO # 1.9 x10^3/uL (0.0-1.1); MONO % 16 % (0-9); NEUT # 6.1 x10^3/uL (1.8-7.7); NEUT % 52 % (31-73); PLATELET COUNT 281 x10^3/uL (140-400); RED CELL DISTRIBUTION WIDTH 17.6 % (11.5-14.5); WHITE BLOOD COUNT 11.9 x10^3/uL (4.0-11.0)
[2021-06-07 04:20] LABS: HEMOGLOBIN 6.9 g/dL (13.0-17.5)
[2021-06-07 05:35] LABS: ALBUMIN 1.6 g/dL (3.4-5.0); ALBUMIN/GLOBULIN RATIO 0.4 (1.0-1.7); CALCIUM 8.1 mg/dL (8.5-10.1); CREATININE 2.3 mg/dL (0.7-1.3); GFR 33.8; TOTAL BILIRUBIN 0.4 mg/dL (0.2-1.0); TOTAL PROTEIN 5.2 g/dL (6.4-8.2)
[2021-06-07] MEDS: DEXMEDETOMIDINE 400 MCG in IV NORMAL SALINE 100ML 96 ML IV PRN ×3 (06:13→23:43)
[2021-06-07] MEDS: INSULIN LISPRO 300 UNITS/3 ML VIAL. SQ SCH ×3 (06:14→17:46)
--- NOTE | 2021-06-07 06:15 | NUR ---
Hgb this am is 6.9. Dr. Lara noted an new orders received.
--- NOTE | 2021-06-07 06:57 | PDOC ---
Infectious Disease Note Subjective Subjective Pt remains vent dependent No nausea vomiting diarrhea Discussed with nursing staff ROS ROS no n/v/d/sob/fever Vital Sign Vital Signs Vital Signs Date Time Temp Pulse Resp B/P (MAP) Pulse Ox O2 Delivery O2 Flow Rate FiO2 06/07/21 06:14 86 125/66 06/07/21 06:00 20 100 Ventilator 06/07/21 04:00 99.8 99.8 Physical Exam PHYSICAL EXAM GENERAL: Well-developed and well-nourished male, sedated , on vent HEENT: Normocephalic, atraumatic, redness and erythema of both eyes improved, NG tube present NECK: right dialysis catheter present clean,central line changed ( 05/11) Trach + HEART: S1, S2.no gallop LUNGS: Decreased breath sounds. ABDOMEN: Less distended, bowel sounds present GENITOURINARY: Nieves in place. EXTREMITIES: Edema present. DERMATOLOGIC: Warm, dry, no generalized rash. NEUROLOGIC: Opens eyes PICC line clean Labs Lab Laboratory Tests Test 06/06/21 11:39 06/06/21 17:35 06/06/21 23:52 06/07/21 03:30 Glucose (Fingerstick) 196 mg/dL (70-99) 179 mg/dL (70-99) 195 mg/dL (70-99) White Blood Count 11.9 x10^3/uL (4.0-11.0) Red Blood Count 2.50 x10^6/uL (4.30-5.70) Hemoglobin 6.9 g/dL (13.0-17.5) Hematocrit 21.4 % (39.0-53.0) Mean Corpuscular Volume 86 fL (79-100) Mean Corpuscular Hemoglobin 28 pg (25-35) Mean Corpuscular Hemoglobin Concent 32 g/dL (31-37) Red Cell Distribution Width 17.6 % (11.5-14.5) Platelet Count 281 x10^3/uL (140-400) Neutrophils (%) (Auto) 52 % (31-73) Lymphocytes (%) (Auto) 24 % (24-48) Monocytes (%) (Auto) 16 % (0-9) Eosinophils (%) (Auto) 7 % (0-3) Basophils (%) (Auto) 1 % (0-3) Neutrophils # (Auto) 6.1 x10^3/uL (1.8-7.7) Lymphocytes # (Auto) 2.8 x10^3/uL (1.0-4.8) Monocytes # (Auto) 1.9 x10^3/uL (0.0-1.1) Eosinophils # (Auto) 0.9 x10^3/uL (0.0-0.7) Basophils # (Auto) 0.2 x10^3/uL (0.0-0.2) Sodium Level 139 mmol/L (136-145) Potassium Level 4.0 mmol/L (3.5-5.1) Chloride Level 106 mmol/L (98-107) Carbon Dioxide Level 27 mmol/L (21-32) Anion Gap 6 (6-14) Blood Urea Nitrogen 38 mg/dL (8-26) Creatinine 2.3 mg/dL (0.7-1.3) Estimated GFR (Cockcroft-Gault) 33.8 BUN/Creatinine Ratio 17 (6-20) Glucose Level 200 mg/dL (70-99) Calcium Level 8.1 mg/dL (8.5-10.1) Total Bilirubin 0.4 mg/dL (0.2-1.0) Aspartate Amino Transf (AST/SGOT) 14 U/L (15-37) Alanine Aminotransferase (ALT/SGPT) 7 U/L (16-63) Alkaline Phosphatase 61 U/L (46-116) Total Protein 5.2 g/dL (6.4-8.2) Albumin 1.6 g/dL (3.4-5.0) Albumin/Globulin Ratio 0.4 (1.0-1.7) Triglycerides Level 104 mg/dL (0-150) Test 06/07/21 03:35 Glucose (Fingerstick) 184 mg/dL (70-99) Micro BLOOD CULTURE LC Final Final FINAL ID= [MANDI PARAPSILOSIS] NO FURTHER WORKUP MANDI PARAPSILOSIS Unless otherwise specified, Testing Performed by: [address] [address] For Inquires, the Physician may contact the Microbiology department at [phone] Objective Assessment Fungemia May 30, 2021, C parapsilosis, 06/02 neg RT IJ central line removed cath tip sent for cult 1. Febrile illness resolved 2. Leukocytosis, was on steroids,ileus could contribute,improving 3. COVID-19 pneumonia. 4. Acute hypoxic respiratory failure status post intubation.Now S/P Trach 05/15 Pleural effusion 5. Congestive heart failure, acute on chronic. 6. Acute kidney injury on chronic kidney disease on hemodialysis. 7. Diabetes mellitus 2. 8. Atrial fibrillation. 9. Anemia. 10. Protein-calorie malnutrition. 11. Hypertention 12.Hyponatremia 13. Ileus, Bowel obstruction Peg TF on hold, OG to LIS 14.on PPN 15.Mild to Moderate Pleural effusion 16.Lt eye conjunctivitis resolved Plan Plan of Care diflucan Monitor labs and cultures lines removed f/u repeat bc from 06/02 neg Nieves changed 05/30 C. difficile PCR negative Remains critically ill Continue supportive care Prognosis poor Patient's family is deciding whether to go ahead with permacath or not Discussed with nursing staff JAD RIVERO MD Jun 07, 2021 06:57
[2021-06-07] MEDS ORDERED: IV NORMAL SALINE 1000ML BAG 1,000 ML IV PRN (08:00)
[2021-06-07] MEDS: ASPIRIN CHEWABLE 81 MG TABLET. PO SCH (08:00)
[2021-06-07] MEDS ORDERED: DIALYSIS PATIENT. MC PRN ×2 (08:00)
--- NOTE | 2021-06-07 08:08 | PDOC ---
[employer] PROGRESS NOTE Date of Service DOS: DATE: 06/07/21 TIME: 08:03 Chief Complaint Chief Complaint Respiratory failure requiring intubation COVID-19 Acute ID A. fib SIRS Hypertension with hypertensive urgency Hyperlipidemia CKD Diabetes History of bilateral subclavian stenosis History of marijuana use Severe protein calorie malnutrition Trach placed on May 15 GI consulted for PEG evaluation --> patient with a lot of vomiting yesterday thus current NG tube to low intermittent suction Anemia secondary to acute blood loss, possible multiple lab draws and related to advanced CKD Positive yeast on 1 out of 4 bottles on blood cultures FEN - TPN PPX - PPI CODE - DNR/DNI Dispo - ICU critically ill History of Present Illness History of Present Illness 06/07: Afebrile. On minimal sedation propofol and Precedex with for trach PEEP 5 FiO2 40%. He is to be in A. fib. Hb 6.9. Will transfuse with dialysis today. Did have stool smear overnight CC time 31 min spent in reviewing chart, labs, and images. Discussed with RN and SW. 06/06: Afebrile. On minimal sedation with propofol and Precedex and vent support via trach PEEP 5 FiO2 40%. Still in A. fib on telemetry. Catheter tip no growth to date sputum with Mariya. Repeat blood cultures no growth to date 06/05: Afebrile. Still requiring minimal sedation on propofol and Precedex. Requiring vent support via trach PEEP five FiO2 40%. KUB with less gaseous distention. No BM but bowel sounds are audible. 06/04: No overnight events afebrile. Sedated on propofol and Precedex. On vent with tracheostomy PEEP 5 FiO2 40%. Being treated for fungemia and receiving TPN. Left IJ CVC functioning well. HD catheter right. 06/03: No acute events overnight. Left IJ placed by IR. Defer to ID for antibiotic management for cultures of the catheter tip and yeast. 06/02: No acute events overnight. Patient saturating 100% on trach collar. Tmax 100.3. Yeast 1 of 4 bottles on blood cultures. Plan to remove central line and dialysis catheter. Family consideration for tunneled catheterization possibly hold. Micafungin was started per ID. 06/01: No acute events overnight. Patient saturating well on trach collar. Patient seen and examined bedside and on HD. Hemoglobin trended down from 8.4- 7.3. Afebrile in the last 24 hours. Patient's chart, labs, images were reviewed and discussed with RN 05/31: No acute events overnight. Patient saturating 100% on trach collar. Hemoglobin improved after 1 unit PRBC transfusion to 8.4. Patient is currently undergoing dialysis and his labs have been stable. Patient's chart, labs, images were reviewed and discussed with RN 05/30: No acute events overnight. Patient doing well on trach collar. Hemoglobin decreased down to 6.7 pending 1 unit PRBC transfusion. Restarted on linezolid and Flagyl and cefepime. Pending PICC placement and central line IJ removal. 05/29: No acute events or night. Patient tolerating trach collar humidified. Saturating at 99%. Pending PICC line placement and IJ central line removal. Per ID. Possibly in not needing HD. Making urine adequately with Lasix as needed. 05/28: No acute events overnight. Patient doing well on trach with settings of 40% FiO2 and PEEP of 8. Pending PEG placement after ileus is resolved will defer this to GI for timing of PEG placement.. Also pending tunneled catheter placement for dialysis. 05/27: Afebrile. On vent with FiO2 40%, PEEP 5. Hemoglobin remains stable at 7.2 today; continue to trend. WBC 13.4. Kidney function appears to be stabilized. LTAC transfer is pending PEG tube placement. Off meropenem; will continue to monitor. Kidney function appears to be stable. 05/26: Afebrile. On vent with FiO2 40%, PEEP 5. Hemoglobin 7.3 yesterday, and hemoglobin 7.2 today; continue to trend. Leukocytosis slightly improved, WBC 12.9 today. Has been accepted at [facility]; transfer pending, but will need PEG tube placement prior. 05/25: Afebrile. On vent with FiO2 40%, PEEP 5. Hemoglobin 8.6 yesterday, hemoglobin 7.3 today. Reportedly had HD yesterday. Continue IV antibiotics, per ID; WBC possibly reactive to ileus. Has been accepted at [facility]; transfer pending, but will need PEG tube placement prior. 05/24: No acute events overnight. Afebrile. NG tube output has decreased. Kidney function appears stable. Continue IV antibiotics, per ID. Patient has been accepted to [facility], pending insurance authorization. 05/23: Afebrile. On vent with FiO2 40%, PEEP 5. NG tube for 635 mL out overnight. Continue NG tube to suction. HD per nephrology. Continue IV antibiotics, per ID. Critical care time 30 minutes spent reviewing charts, reviewing labs, reviewing imaging, discussion with RN. 05/22: Afebrile. On vent with FiO2 40%, PEEP 5. Excessive NG output. Continue NG tube to suction for now; PEG on hold for now. Continue hemodialysis, per nephrology. Continue IV antibiotics, per ID. Social work helping with discharge planning to LTACH likely in the near future after PEG 05/21: Afebrile, no acute events overnight. Remains on vent, FiO2 40%, PEEP 5. S/P tracheostomy on 05/15/2021. KUB on 05/19/2021 consistent with ileus. Per GI, continue NG tube to suction and parenteral nutrition for now. Continue IV antibiotics, per ID. Continue hemodialysis 05/20: Patient seen and examined at bedside. Again had multiple bouts of v omiting yesterday. GI continuing to follow for PEG evaluation although on hold right now due to persistent vomiting. Leukocytosis does persist but patient afebrile. Plan of care discussed with bedside RN 05/19: Patient seen and examined at bedside. Apparently had a fair bit of vomiting overnight. GI following for PEG evaluation. Otherwise patient remained stable. Plan of care discussed with bedside nurse. 05/18: Patient seen and examined at bedside. Attempting to increase tube feeds, GI consulted for PEG evaluation. Otherwise no major clinical changes. Continue to wean sedation. Plan of care discussed with bedside nurse. 05/17: Patient seen and examined at bedside. Attempting to wean sedation. Patient with some diarrhea. Per infectious disease will give erythromycin eye ointment for eye lesions. Nephro and pulm also following. Continue sedation weaning, plan of care discussed with bedside nurse. 05/16: Patient seen and examined at bedside. Underwent tracheostomy yesterday today tolerated well. When seen this morning patient is still notably sedated respiratory status is stable. Continue antibiotics and supportive measures. 05/15: Patient seen and examined at bedside. Remains intubated and sedated planning for tracheostomy today. Continue current respiratory support; continue antibiotics, continue sedation. 05/14: Patient seen and examined at bedside. Remains intubated and sedated planning for tracheostomy tomorrow. Continue current respiratory support; continue antibiotics, continue sedation. Follow recommendations of pulmonary, renal, and infectious disease 05/13: Did not tolerate sedation vacation 05/11/2021, profoundly hypertensive. ABG/CXR--changes as needed. Continue iv cefepime , add zyvox, sputum culture. VENT [id number]%, 5 of PEEP. Mild pulmonary edema with new small right pleural effusion and basilar opacities. now on cardene gtt prn 05/12: Continue iv cefepime , add zyvox, sputum culture. VENT [id number]%, 5 of PEEP. now on cardene gtt prn 05/11/2021 Continue iv cefepime , add zyvox, sputum culture VENT [id number]%, 5 of PEEP Mild pulmonary edema with new small right pleural effusion and basilar opacities now on cardene gtt prn Patient seen and examined in the [place] [address] ICU remains mechanically ventilated ILDA on CKD - ATN 2/2 sepsis/ Hypotension,UOP good,on IV Lasix ; requiring dialysis, Sedated with propofol Dex and fentanyl Chart reviewed Discussed with RN He remains critically ill intubated/sedated cont cardene gtt not able to tolerate PS trial 05/06/21 Change central line and send cath tip for cultures. 05-09 C. difficile PCR JONES FISHMAN MD,ADELSO DASILVA MD, MD ORDERED: BCULT Procedure Result BLOOD CULTURE Preliminary NO GROWTH AFTER 2 DAYS - BLOOD CULTURE Preliminary NO GROWTH AFTER 4 DAYS 36 min cc time 05/10/2021 VENT [id number]%, 5 of PEEP Mild pulmonary edema with new small right pleural effusion and basilar opacities now on cardene gtt prn Patient seen and examined in the COVID-19 ICU remains mechanically ventilated ILDA on CKD - ATN 2/2 sepsis/ Hypotension,UOP good,on IV Lasix ; requiring dialysis, Sedated with propofol Dex and fentanyl Chart reviewed Discussed with RN He remains critically ill intubated/sedated cont cardene gtt not able to tolerate PS trial 05/06/21 Change central line and send cath tip for cultures. 05-09 C. difficile PCR JONES FISHMAN MD,ADELSO DASILVA MD, MD ORDERED: BCULT Procedure Result BLOOD CULTURE Preliminary NO GROWTH AFTER 2 DAYS BLOOD CULTURE Preliminary NO GROWTH AFTER 4 DAYS 33 min cc time 05/09/2021 VENT %, 5 of PEEP Mild pulmonary edema with new small right pleural effusion and basilar opacities now on cardene gtt prn Patient seen and examined in the COVID-19 ICU remains mechanically ventilated ILDA on CKD - ATN 2/2 sepsis/ Hypotension,UOP good,on IV Lasix ; requiring dialysis, Sedated with propofol Dex and fentanyl Chart reviewed Discussed with RN He remains critically ill intubated/sedated cont cardene gtt not able to tolerate PS trial 05/06/21 Change central line and send cath tip for cultures. 05-09 C. difficile PCR JONES FISHMAN MD,BRIAN AVILA,ADELSO POTTER ORDERED: BCULT Procedure Result BLOOD CULTURE Preliminary NO GROWTH AFTER 2 DAYS BLOOD CULTURE Preliminary NO GROWTH AFTER 4 DAYS 37 min cc time 05/08/2021 Currently on 40%, 5 of PEEP now on cardene gtt Patient seen and examined in the [place] [address] ICU remains mechanically ventilated ILDA on CKD - ATN 2/2 sepsis/ Hypotension,UOP good,on IV Lasix ; requiring dialysis, AC/20/500/40 percent with 5 of PEEP Sedated with propofol Dex and fentanyl Chart reviewed Discussed with RN He remains critically ill intubated/sedated cont cardene gtt not able to tolerate PS trial 05/06/21 JONES FISHMAN MD,ADELSO DASILVA MD, MD ORDERED: BCULT Procedure Result BLOOD CULTURE Preliminary NO GROWTH AFTER 2 DAYS BLOOD CULTURE Preliminary NO GROWTH AFTER 4 DAYS 33 min cc time 05/07/2021 Patient seen and examined in the [place] [address] ICU He remains mechanically ventilated ILDA on CKD - ATN 2/2 sepsis/ Hypotension,UOP good,on IV Lasix ; requiring dialysis, AC/20/500/40 percent with 5 of PEEP Sedated with propofol Dex and fentanyl Chart reviewed Discussed with RN He remains critically ill intubated/sedated cont cardene gtt not able to tolerate PS trial 05/06/21 JONES FISHMAN MD,ADELSO DASILVA MD, MD ORDERED: BCULT Procedure Result BLOOD CULTURE Preliminary NO GROWTH AFTER 2 DAYS 36 min cc time 05/06/2021 Patient seen and examined in the [place] [address] ICU He remains mechanically ventilated AC/20/500/40 percent with 5 of PEEP Sedated with propofol Dex and fentanyl Chart reviewed Discussed with RN He remains critically ill 05/05/2020 Patient seen and examined in the [place] [address] ICU He remains on the vent AC/20/500/40 percent with 5 of PEEP Discussed with RN Chart reviewed Has SCDs in place Nieves to bedside drainage He remains critically ill 05/04/2021 Patient seen and examined in the [place] [address] ICU Still intubated Sedated with propofol and fentanyl AC/20/500/70 percent with 5 of PEEP On dialysis currently Has SCDs in Nieves to bedside drainage Discussed with RN Chart reviewed 05/03/2021 Patient seen and examined in the [place] [address] ICU He is still intubated AC/20/500/70 percent with 5 of PEEP Has SCDs in place Nieves to bedside drainage Sedated with fentanyl Versed and propofol Discussed are Chart reviewed Remains critically ill 05/02/2021 Patient seen and examined in the [place] [address] ICU He is sedated with propofol fentanyl and Versed Ventilator settings as follow AC/20/500/40 percent with 5 of PEEP Has Nieves to bedside drainage Chart reviewed Discussed with RN He remains critically ill 05/01/2021 Patient seen and examined in the [place] [address] ICU He is still intubated AC/20/500/40 percent with 5 of PEEP In A. fib Sedated with propofol fentanyl and Versed Has a heparin drip Missy with RN Chart reviewed He remains critically 04/30: Patient seen and examined in the [place] [address] ICU He remains on the vent AC/20/500/40 5% with 5 PEEP Currently on dialysis Has OG feeds running Has a Nieves to bedside drainage Sedated with propofol and fentanyl Reviewed chart Discussed with RN He remains critically ill Mr Cunha is a 75 yo male w/ PMHx CAD, HTN, Hyperlipidemia, subclavian steel syndrome, subclavian stenosis s/p left subclavian sent placement complicated by retroperitoneal hematoma s/p evacuation in 08/2015), asthma, BART, CKD, DM2 who presented from home with home health care noted that he was short of breath and valverde with O2 saturations less than 89% as low as 84% not improved with nasal cannulated oxygen placed on CPAP and brought to ED for further care. He was just discharged from the hospital a week ago on April 19, 2021 for abdominal pain and was going for further cardiac testing with outpatient stress testing scheduled on May 28, 2021. Had echocardiogram April 17, 2021 with normal-appearing EF with moderate concentric LVH no significant valvular abnormalities. WBC 20, Hb 10.7, platelets 268, NA 140, K3.8, BUN 21, CR 2.9, glucose 162, albumin 3, troponin I 1.372, NT proBNP 33,318. EKG appears sinus tachycardia rate of 105 bpm with multiple PACs small ST depressions in lead II and V5. TWI in V6. Chest radiograph with diffuse interstitial and alveolar opacities and ET tube 5.8 cm above the leilani. Due to worsening respiratory status ED physician elected to intubate patient. Seen postintubation. Blood pressure little low after propofol bolus, but i mproved. Significant white frothy sputum per ET tube. Admitted to ICU for further care 04/29: Afebrile, remains on vent at FiO2 45%, PEEP 5. WBC 20.4. Hemodialysis per nephrology. We will continue treatment with empiric antibiotics, remdesivir, and steroids. Continue heparin infusion and supportive care. 04/28: Afebrile. FiO2 50%, PEEP 5. Nontunneled HD catheter placed yesterday due to worsening kidney function; eGFR 16 (CKD4). Chest x-ray showed unchanged interstitial opacities. Continue empiric antibiotics, steroids, and remdesivir. Continue heparin infusion, for new dx A. fib. 04/27: Afebrile. Vent with FiO2 50%, PEEP 5. Troponin 2.8 yesterday; probable type II, demand ischemia. New onset A. fib. Cont heparin gtt and prn digoxin, per cardiology. Contnue treatment with remdesivir, steroids, and prophylactic antibiotics. BG 323 this morning; will add basal insulin. 04/26: COVID-19 positive. Febrile overnight that was managed with cooling blankets. On vent with FiO2 50%, PEEP 5. Per cardiology, elevated troponins likely secondary to demand ischemia; continue heparin drip per cardiology. Continue treatment with remdesivir, steroids, and antibiotics. 04/25: On vent FiO2 50, PEEP 5. Febrile, T-max 103.3. Patient was initiated on cooling blankets. Procalcitonin 0.13. Continue coverage for hospital-acquired pneumonia with cefepime. MRSA PCR pending. Vitals/I&O Vitals/I&O: Vital Signs Date Time Temp Pulse Resp B/P (MAP) Pulse Ox O2 Delivery O2 Flow Rate FiO2 06/07/21 06:14 86 125/66 06/07/21 06:00 20 100 Ventilator 06/07/21 04:00 99.8 99.8 I & O 06/06/21 06/06/21 06/07/21 15:00 23:00 07:00 Intake Total 0 ml 1004 ml 677 ml Output Total 150 ml 405 ml 345 ml Balance -150 ml 599 ml 332 ml Physical Exam Physical Exam: GENERAL: Well-developed and well-nourished male, sedated , on vent HEENT: Normocephalic, atraumatic, redness and erythema of both eyes improved, NG tube present NECK: right dialysis catheter present clean,central line changed ( 05/11) Trach + HEART: S1, S2.no gallop LUNGS: Decreased breath sounds. ABDOMEN: Less distended, bowel sounds present GENITOURINARY: Nieves in place. EXTREMITIES: Edema present. DERMATOLOGIC: Warm, dry, no generalized rash. NEUROLOGIC: Opens eyes PICC line clean General: No acute distress, severe distress, Other (Alert and awake, trach collar site is intact without any infection) Heart: Regular rate, Normal S1, Normal S2 Lungs: Crackles Abdomen: Normal bowel sounds, Other (ND) Extremities: No clubbing, No cyanosis, Other (Lower extremity edema) Skin: No rashes, No breakdown, No significant lesion Labs Labs: Laboratory Tests Test 06/06/21 11:39 06/06/21 17:35 06/06/21 23:52 06/07/21 03:30 Glucose (Fingerstick) 196 mg/dL (70-99) 179 mg/dL (70-99) 195 mg/dL (70-99) White Blood Count 11.9 x10^3/uL (4.0-11.0) Red Blood Count 2.50 x10^6/uL (4.30-5.70) Hemoglobin 6.9 g/dL (13.0-17.5) Hematocrit 21.4 % (39.0-53.0) Mean Corpuscular Volume 86 fL (79-100) Mean Corpuscular Hemoglobin 28 pg (25-35) Mean Corpuscular Hemoglobin Concent 32 g/dL (31-37) Red Cell Distribution Width 17.6 % (11.5-14.5) Platelet Count 281 x10^3/uL (140-400) Neutrophils (%) (Auto) 52 % (31-73) Lymphocytes (%) (Auto) 24 % (24-48) Monocytes (%) (Auto) 16 % (0-9) Eosinophils (%) (Auto) 7 % (0-3) Basophils (%) (Auto) 1 % (0-3) Neutrophils # (Auto) 6.1 x10^3/uL (1.8-7.7) Lymphocytes # (Auto) 2.8 x10^3/uL (1.0-4.8) Monocytes # (Auto) 1.9 x10^3/uL (0.0-1.1) Eosinophils # (Auto) 0.9 x10^3/uL (0.0-0.7) Basophils # (Auto) 0.2 x10^3/uL (0.0-0.2) Sodium Level 139 mmol/L (136-145) Potassium Level 4.0 mmol/L (3.5-5.1) Chloride Level 106 mmol/L (98-107) Carbon Dioxide Level 27 mmol/L (21-32) Anion Gap 6 (6-14) Blood Urea Nitrogen 38 mg/dL (8-26) Creatinine 2.3 mg/dL (0.7-1.3) Estimated GFR (Cockcroft-Gault) 33.8 BUN/Creatinine Ratio 17 (6-20) Glucose Level 200 mg/dL (70-99) Calcium Level 8.1 mg/dL (8.5-10.1) Total Bilirubin 0.4 mg/dL (0.2-1.0) Aspartate Amino Transf (AST/SGOT) 14 U/L (15-37) Alanine Aminotransferase (ALT/SGPT) 7 U/L (16-63) Alkaline Phosphatase 61 U/L (46-116) Total Protein 5.2 g/dL (6.4-8.2) Albumin 1.6 g/dL (3.4-5.0) Albumin/Globulin Ratio 0.4 (1.0-1.7) Triglycerides Level 104 mg/dL (0-150) Test 06/07/21 03:35 Glucose (Fingerstick) 184 mg/dL (70-99) Assessment and Plan Assessmemt and Plan Problems Medical Problems: (1) Elevated troponin Status: Acute (2) Person under investigation for COVID-19 Status: Acute (3) Pulmonary edema Status: Acute Comment Review of Relevant I have reviewed the following items juanita (where applicable) has been applied. Medications: Current Medications Medications (Trade) Dose Ordered Sig/Jodie Route PRN Reason Start Time Stop Time Status Last Admin Dose Admin Sodium Chloride 90 meq/Potassium Chloride 30 meq/ Potassium Phosphate 13.6 mmol/Magnesium Sulfate 12 meq/ Multivitamins 5 ml/Zinc/Copper/ Manganese/ Selenium 1 ml/ Total Parenteral Nutrition/Amino Acids/Dextrose 1,200 ml @ 50 mls/hr TPN CONT IV 06/06/21 22:00 06/07/21 21:59 06/06/21 22:44 Justifications for Admission General Conditions Altered mental status?: Yes Justification of admission: Patient has tachycardia (> 100 beats per minute) or hypotension (SBP < 90 mm Hg) leading to inadequate systemic perfusion as indicated by severe/persistent altered mental status. Other Justification ILDA BRIAN HARDING MD Jun 07, 2021 08:07
--- NOTE | 2021-06-07 08:55 | PDOC ---
DATE OF SERVICE DATE: 06/07/21 TIME: 08:53 SUBJECTIVE ROS remains vent dependent Opens eyes OBJECTIVE Vital Signs Vital Signs Date Time Temp Pulse Resp B/P (MAP) Pulse Ox O2 Delivery O2 Flow Rate FiO2 06/07/21 07:53 100 Ventilator 06/07/21 06:14 86 125/66 06/07/21 06:00 20 06/07/21 04:00 99.8 99.8 I & 0 Intake and Output 06/07/21 07:00 Intake Total 1681 ml Output Total 900 ml Balance 781 ml IV Total 1681 ml Output Urine Total 625 ml Gastric Drainage Total 275 ml PHYSICAL EXAM Physical Exam GENERAL: sedated, on Vent HEENT: NG tube present NECK: Trach + HEART: S1, S2. LUNGS: Decreased breath sounds. ABDOMEN: bowel sounds present GENITOURINARY: Nieves in place. EXTREMITIES: Edema present. DERMATOLOGIC: Warm, dry, no generalized rash. NEUROLOGIC: Opens eyes DIAGNOSIS/ASSESSMENT Assessment & Plan ILDA-ATN- requiring dialysis ,last treatment 06/05 ; Non Oliguric , marginal UOp dialysis today, currently on TTS schedule Seen on dialysis, tolerating well. discussed treatment plan with Ashly ,Access new Temp HDC placed 06/04 Fungemia- on antifungal HypoNatremia- Resolved HypoKalemia CKD stage 3 Acute Hypoxic Resp failure - S/P Trach COVID 19 Pneumonia Anemia - Hgb <7 , PRBC on HD today COMMENT/RELEVANT DATA Meds Current Medications Medications (Trade) Dose Ordered Sig/Jodie Start Time Stop Time Status Last Admin Dose Admin Acetaminophen (Tylenol Supp) 650 mg PRN Q6HRS PRN 05/29/21 16:15 05/29/21 16:37 650 MG Acetaminophen (Tylenol) 650 mg PRN Q6HRS PRN 04/24/21 14:00 Cancel Albumin Human 100 ml @ 100 mls/hr 1X PRN PRN 06/05/21 10:15 06/05/21 16:14 DC 06/05/21 11:10 100 MLS/HR Amiodarone HCl (Cordarone) 200 mg DAILY 04/28/21 09:00 05/22/21 16:27 DC 05/21/21 11:07 200 MG Amiodarone HCl 150 mg/Dextrose 103 ml @ 618 mls/hr 1X ONCE 04/27/21 02:30 04/27/21 02:39 DC 04/27/21 02:30 618 MLS/HR Amiodarone HCl 450 mg/Dextrose 259 ml @ 0 mls/hr 1X ONCE 05/22/21 16:30 05/22/21 16:34 DC 05/22/21 16:59 33 MLS/HR Amlodipine Besylate (Norvasc) 10 mg DAILY 05/16/21 09:00 05/29/21 08:07 10 MG Aspirin (Aspirin Chewable) 81 mg DAILYWBKFT 05/03/21 10:00 05/29/21 08:05 81 MG Aspirin (Ecotrin) 81 mg DAILYWBKFT 04/25/21 08:00 05/03/21 09:56 DC 05/02/21 07:20 81 MG Atorvastatin Calcium (Lipitor) 80 mg QHS 04/24/21 21:00 05/23/21 19:58 80 MG Bisacodyl (Dulcolax Supp) 10 mg 1X ONCE 06/04/21 16:30 06/04/21 16:31 DC 06/04/21 17:56 10 MG Bupivacaine HCl/ Epinephrine Bitart (Sensorcain-Epi 0.5%-1:456309 Mpf) 30 ml STK-MED ONCE 05/15/21 07:05 05/15/21 07:06 DC Carvedilol (Coreg) 3.125 mg BIDWMEALS 04/24/21 17:00 04/25/21 15:42 DC 04/25/21 09:23 3.125 MG Cefepime HCl (Maxipime) 1 gm Q12HR 05/30/21 09:00 06/05/21 07:34 DC 06/04/21 20:31 1 GM Cellulose (Surgicel Fibrillar 1x2) 1 each STK-MED ONCE 05/15/21 07:05 05/15/21 07:06 DC 05/15/21 09:40 1 EACH Chlorhexidine Gluconate (Peridex) 15 ml BID 04/24/21 21:00 04/25/21 11:19 DC 04/24/21 20:49 15 ML Daptomycin 600 mg/ Sodium Chloride 50 ml @ 100 mls/hr Q48H 05/04/21 15:00 05/06/21 08:07 DC 05/04/21 15:24 100 MLS/HR Dexamethasone Sodium Phosphate (Decadron) 4 mg STK-MED ONCE 05/15/21 07:53 05/15/21 07:53 DC Dexmedetomidine HCl 400 mcg/ Sodium Chloride 100 ml @ 0 mls/hr CONT PRN 05/04/21 10:30 06/07/21 06:13 16.4 MLS/HR Dextrose (Dextrose 50%-Water Syringe) 12.5 gm PRN Q15MIN PRN 05/03/21 14:00 Digoxin (Lanoxin) 250 mcg 1X ONCE 04/26/21 13:00 04/26/21 13:05 DC 04/26/21 15:02 250 MCG Ephedrine Sulfate (ePHEDrine PF IN SALINE SYRINGE) 50 mg STK-MED ONCE 05/15/21 09:15 05/15/21 09:15 DC Erythromycin (Romycin) 0.25 inch BID 05/17/21 12:00 05/25/21 13:24 DC 05/25/21 07:43 0.25 INCH Etomidate (Amidate) 20 mg STK-MED ONCE 04/24/21 13:38 04/24/21 13:38 DC Fentanyl Citrate 30 ml @ 0 mls/hr CONT PRN 04/24/21 14:00 06/07/21 01:25 2.5 MLS/HR Fentanyl Citrate (Fentanyl 2ml Vial) 25 mcg PRN Q1HR PRN 04/24/21 14:00 05/17/21 16:12 25 MCG Fluconazole/ Sodium Chloride 100 ml @ 100 mls/hr Q24H 06/05/21 09:00 06/06/21 08:27 100 MLS/HR Furosemide (Lasix) 80 mg TID 05/27/21 09:00 06/01/21 11:08 DC 05/31/21 20:10 80 MG Heparin Sodium (Porcine) (Heparin Sodium) 5,000 unit Q8HRS 05/18/21 10:00 05/30/21 11:07 DC 05/30/21 06:07 5,000 UNIT Heparin Sodium/ Dextrose 250 ml @ 0 mls/hr CONT PRN 04/24/21 16:45 05/01/21 12:32 DC 05/01/21 05:10 10 MLS/HR Hydralazine HCl (Apresoline Inj) 10 mg PRN QID PRN 05/22/21 16:30 05/29/21 08:08 10 MG Hydralazine HCl (Apresoline) 25 mg QID 05/10/21 10:00 05/22/21 16:27 DC 05/21/21 17:24 25 MG Info (Anti-Coagulation Monitoring By Pharmacy) 1 each PRN DAILY PRN 04/25/21 13:00 05/02/21 07:36 DC 04/26/21 08:51 1 EACH Info (PHARMACY MONITORING -- do not chart) 1 each PRN DAILY PRN 06/07/21 08:00 UNV Info (Tpn Per Pharmacy) 1 each PRN DAILY PRN 05/22/21 10:00 06/06/21 09:58 1 EACH Insulin Glargine (Lantus Syringe) 20 unit BID 05/31/21 09:00 06/06/21 20:59 20 UNIT Insulin Human Lispro (HumaLOG) 0-5 UNITS Q6HRS 05/03/21 18:00 06/07/21 06:14 2 UNITS Labetalol HCl (Normodyne Iv Push) 20 mg PRN Q2HR PRN 05/01/21 12:30 05/27/21 15:43 20 MG Lidocaine HCl (Buffered Lidocaine 1%) 6 ml 1X ONCE 06/04/21 09:30 06/04/21 09:31 DC 06/04/21 09:34 2 ML Lidocaine HCl (Lidocaine Pf 2% Vial) 5 ml STK-MED ONCE 05/15/21 07:53 05/15/21 07:53 DC Linezolid/Dextrose 300 ml @ 300 mls/hr Q12HR 05/31/21 09:00 UNV Lorazepam (Ativan Inj) 0.25 mg PRN Q4HRS PRN 05/21/21 09:00 06/02/21 04:30 0.25 MG Magnesium Sulfate 50 ml @ 25 mls/hr 1X ONCE 06/02/21 08:45 06/02/21 10:44 DC 06/02/21 09:53 25 MLS/HR Meropenem 500 mg/ Sodium Chloride 50 ml @ 100 mls/hr DAILY 05/23/21 09:00 05/25/21 11:55 DC 05/25/21 07:42 100 MLS/HR Metoprolol Tartrate (Lopressor Vial) 5 mg Q6HRS 04/25/21 18:00 06/07/21 06:14 5 MG Metronidazole 100 ml @ 100 mls/hr Q12HR 05/30/21 09:00 06/05/21 07:34 DC 06/04/21 20:32 100 MLS/HR Micafungin Sodium 100 mg/Dextrose 100 ml @ 100 mls/hr Q24H 06/02/21 09:00 06/05/21 07:34 DC 06/04/21 09:54 100 MLS/HR Midazolam HCl (Versed) 5 mg 1X ONCE 05/24/21 15:15 05/24/21 15:16 DC 05/24/21 15:20 5 MG Montelukast Sodium (Singulair) 10 mg HS 04/24/21 21:00 05/23/21 19:58 10 MG Multi-Ingred Cream/Lotion/Oil/ Oint (Artificial Tears Eye Ointment) 1 danielito PRN Q1HR PRN 05/07/21 16:00 05/10/21 20:51 1 DANIELITO Nicardipine HCl 50 mg/Sodium Chloride 250 ml @ 25 mls/hr CONT PRN 05/06/21 18:45 05/20/21 19:47 37.5 MLS/HR Norepinephrine Bitartrate 8 mg/ Dextrose 258 ml @ 25.852 mls/ hr CONT PRN 05/02/21 21:00 05/09/21 06:10 DC 05/02/21 21:22 25.852 MLS/HR Nystatin (Nystop) 1 danielito BID 05/16/21 21:00 06/06/21 20:58 1 DANIELITO Ondansetron HCl (Zofran) 4 mg STK-MED ONCE 05/15/21 07:53 05/15/21 07:53 DC Pantoprazole Sodium (PROTONIX VIAL for IV PUSH) 40 mg DAILYAC 04/26/21 09:30 06/06/21 08:27 40 MG Phenylephrine HCl (PHENYLEPHRINE in 0.9% NACL PF) 1 mg STK-MED ONCE 05/15/21 07:51 05/15/21 07:51 DC Potassium Bicarbonate (Potassium Effervescent Tablet) 40 meq 1X ONCE 05/19/21 08:30 05/19/21 08:31 DC 05/19/21 08:50 40 MEQ Potassium Chloride/Water 100 ml @ 100 mls/hr Q1H 05/23/21 10:45 05/23/21 12:44 DC 05/23/21 13:17 100 MLS/HR Potassium Phosphate 10 mmol/ Sodium Chloride 103.3333 ml @ 51.667 m... Q2H 06/01/21 12:00 06/01/21 15:59 DC 06/01/21 13:24 51.667 MLS/HR Potassium Phosphate 13.6 mmol/Sodium Chloride 254.5333 ml @ 127.... 1X ONCE 05/31/21 12:00 05/31/21 13:59 DC 05/31/21 12:08 127.267 MLS/HR Potassium Phosphate 20 mmol/ Sodium Chloride 256.6667 ml @ 62.5 mls/hr 1X ONCE 05/13/21 12:15 05/13/21 16:21 UNV Potassium Phosphate 30 mmol/ Sodium Chloride 260 ml @ 62.5 mls/hr 1X ONCE 05/13/21 12:15 05/13/21 16:24 UNV Prochlorperazine Edisylate (Compazine) 5 mg PACU PRN PRN 05/15/21 06:00 05/16/21 05:59 DC Propofol 100 ml @ 4.185 mls/ hr CONT PRN 06/02/21 09:30 06/06/21 05:55 12.555 MLS/HR Propofol (Diprivan) 200 mg STK-MED ONCE 05/15/21 07:53 05/15/21 07:53 DC Remdesivir 100 mg/ Sodium Chloride 230 ml @ 460 mls/hr Q24H 04/26/21 17:30 04/29/21 17:59 DC 04/29/21 13:51 460 MLS/HR Remdesivir 200 mg/ Sodium Chloride 210 ml @ 210 mls/hr 1X ONCE 04/25/21 17:30 04/25/21 18:29 DC 04/25/21 17:09 210 MLS/HR Ringer's Solution 1,000 ml @ 30 mls/hr Q24H 05/15/21 06:00 05/15/21 17:59 DC 05/15/21 07:04 30 MLS/HR Rocuronium [place] (Zemuron) 50 mg STK-MED ONCE 05/15/21 07:06 05/15/21 07:07 DC Sodium Bicarbonate (Sodium Bicarb Adult 8.4% Syr) 50 meq 1X ONCE 04/27/21 09:45 04/27/21 09:46 DC 04/27/21 09:50 50 MEQ Sodium Chloride 1,000 ml @ 1,000 mls/hr Q1H PRN 06/07/21 08:00 06/07/21 13:59 Sodium Chloride (Normal Saline Flush) 10 ml 1X PRN PRN 06/01/21 08:00 06/02/21 07:59 DC Sodium Chloride 90 meq/Potassium Chloride 25 meq/ Magnesium Sulfate 10 meq/Calcium Gluconate 5 meq/ Multivitamins 5 ml/Zinc/Copper/ Manganese/ Selenium 1 ml/ Total Parenteral Nutrition/Amino Acids/Dextrose/ Fat Emulsion Intravenous 1,080 ml @ 45 mls/hr TPN CONT 05/22/21 22:00 05/23/21 21:59 DC 05/22/21 21:22 45 MLS/HR Sodium Chloride 90 meq/Potassium Chloride 30 meq/ Potassium Phosphate 13.6 mmol/Magnesium Sulfate 10 meq/ Multivitamins 5 ml/Zinc/Copper/ Manganese/ Selenium 1 ml/ Total Parenteral Nutrition/Amino Acids/Dextrose/ Fat Emulsion Intravenous 1,200 ml @ 50 mls/hr TPN CONT 06/01/21 22:00 06/02/21 21:59 DC 06/01/21 21:33 50 MLS/HR Sodium Chloride 90 meq/Potassium Chloride 30 meq/ Potassium Phosphate 13.6 mmol/Magnesium Sulfate 12 meq/ Multivitamins 5 ml/Zinc/Copper/ Manganese/ Selenium 1 ml/ Total Parenteral Nutrition/Amino Acids/Dextrose 1,200 ml @ 50 mls/hr TPN CONT 06/06/21 22:00 06/07/21 21:59 06/06/21 22:44 50 MLS/HR Sodium Chloride 90 meq/Potassium Chloride 30 meq/ Potassium Phosphate 13.6 mmol/Magnesium Sulfate 12 meq/ Multivitamins 5 ml/Zinc/Copper/ Manganese/ Selenium 1 ml/ Total Parenteral Nutrition/Amino Acids/Dextrose/ Fat Emulsion Intravenous 1,200 ml @ 50 mls/hr TPN CONT 06/02/21 22:00 06/03/21 21:59 DC 06/02/21 21:31 50 MLS/HR Sodium Chloride 90 meq/Potassium Chloride 50 meq/ Magnesium Sulfate 10 meq/Calcium Gluconate 5 meq/ Multivitamins 5 ml/Zinc/Copper/ Manganese/ Selenium 1 ml/ Total Parenteral Nutrition/Amino Acids/Dextrose/ Fat Emulsion Intravenous 960 ml @ 40 mls/hr TPN CONT 05/27/21 22:00 05/28/21 21:59 DC 05/27/21 22:03 40 MLS/HR Sodium Chloride 90 meq/Potassium Chloride 50 meq/ Potassium Phosphate 5 mmol/ Magnesium Sulfate 10 meq/Calcium Gluconate 5 meq/ Multivitamins 5 ml/Zinc/Copper/ Manganese/ Selenium 1 ml/ Total Parenteral Nutrition/Amino Acids/Dextrose/ Fat Emulsion Intravenous 1,200 ml @ 50 mls/hr TPN CONT 05/30/21 22:00 05/31/21 21:59 DC 05/30/21 21:57 50 MLS/HR Sodium Phosphate 15 mmol/Dextrose 105 ml @ 105 mls/hr 1X ONCE 05/29/21 11:00 05/29/21 11:59 DC 05/29/21 11:53 105 MLS/HR Sodium Phosphate 15 mmol/Sodium Chloride 105 ml @ 105 mls/hr 1X ONCE 05/29/21 11:45 05/29/21 12:44 UNV Succinylcholine Chloride (Anectine) 200 mg STK-MED ONCE 04/24/21 13:38 04/24/21 13:38 DC Vecuronium [place] (Norcuron Bolus) 6 mg PRN Q6HRS PRN 04/30/21 11:15 05/14/21 09:12 6 MG Lab Laboratory Tests Test 06/06/21 11:39 06/06/21 17:35 06/06/21 23:52 06/07/21 03:30 Glucose (Fingerstick) 196 mg/dL (70-99) 179 mg/dL (70-99) 195 mg/dL (70-99) White Blood Count 11.9 x10^3/uL (4.0-11.0) Red Blood Count 2.50 x10^6/uL (4.30-5.70) Hemoglobin 6.9 g/dL (13.0-17.5) Hematocrit 21.4 % (39.0-53.0) Mean Corpuscular Volume 86 fL (79-100) Mean Corpuscular Hemoglobin 28 pg (25-35) Mean Corpuscular Hemoglobin Concent 32 g/dL (31-37) Red Cell Distribution Width 17.6 % (11.5-14.5) Platelet Count 281 x10^3/uL (140-400) Neutrophils (%) (Auto) 52 % (31-73) Lymphocytes (%) (Auto) 24 % (24-48) Monocytes (%) (Auto) 16 % (0-9) Eosinophils (%) (Auto) 7 % (0-3) Basophils (%) (Auto) 1 % (0-3) Neutrophils # (Auto) 6.1 x10^3/uL (1.8-7.7) Lymphocytes # (Auto) 2.8 x10^3/uL (1.0-4.8) Monocytes # (Auto) 1.9 x10^3/uL (0.0-1.1) Eosinophils # (Auto) 0.9 x10^3/uL (0.0-0.7) Basophils # (Auto) 0.2 x10^3/uL (0.0-0.2) Sodium Level 139 mmol/L (136-145) Potassium Level 4.0 mmol/L (3.5-5.1) Chloride Level 106 mmol/L (98-107) Carbon Dioxide Level 27 mmol/L (21-32) Anion Gap 6 (6-14) Blood Urea Nitrogen 38 mg/dL (8-26) Creatinine 2.3 mg/dL (0.7-1.3) Estimated GFR (Cockcroft-Gault) 33.8 BUN/Creatinine Ratio 17 (6-20) Glucose Level 200 mg/dL (70-99) Calcium Level 8.1 mg/dL (8.5-10.1) Total Bilirubin 0.4 mg/dL (0.2-1.0) Aspartate Amino Transf (AST/SGOT) 14 U/L (15-37) Alanine Aminotransferase (ALT/SGPT) 7 U/L (16-63) Alkaline Phosphatase 61 U/L (46-116) Total Protein 5.2 g/dL (6.4-8.2) Albumin 1.6 g/dL (3.4-5.0) Albumin/Globulin Ratio 0.4 (1.0-1.7) Triglycerides Level 104 mg/dL (0-150) Test 06/07/21 03:35 Glucose (Fingerstick) 184 mg/dL (70-99) Results All relevant outside records, renal labs, imaging studies, telemetry/EKG's were reviewed. Justicifation of Admission Dx: Justifications for Admission: Justification of Admission Dx: Yes Aspiration Pneumonia: Hemodynamic Instability JASMEET LAM MD Jun 07, 2021 08:55
[2021-06-07] MEDS: INSULIN GLARGINE SYRINGE. SQ SCH ×2 (09:08→20:35)
--- NOTE | 2021-06-07 09:57 | PDOC ---
PULMONARY PROGRESS NOTES DATE: 06/07/21 TIME: 09:55 Subjective Tolerating pressure support well so far, peep 5 fio2 40% Awake. Not in any obvious respiratory distress. Vitals Vital Signs Date Time Temp Pulse Resp B/P (MAP) Pulse Ox O2 Delivery O2 Flow Rate FiO2 06/07/21 09:47 100 Ventilator 06/07/21 09:34 98.2 67 24 178/90 98.2 Comments Tracheostomy ros unable to obtain sedated on vent General: No acute distress HEENT: Other (Trachea midline nc at perrl nose clear neck trach site ok no lad) Lungs: Crackles Cardiovascular: S1, S2 Abdomen: Soft Extremities: No Edema Skin: Warm Labs Laboratory Tests Test 06/05/21 10:50 06/05/21 16:30 06/05/21 23:50 06/06/21 05:50 Sodium Level 138 mmol/L (136-145) 141 mmol/L (136-145) Potassium Level 3.7 mmol/L (3.5-5.1) 4.3 mmol/L (3.5-5.1) Chloride Level 104 mmol/L (98-107) 105 mmol/L (98-107) Carbon Dioxide Level 27 mmol/L (21-32) 27 mmol/L (21-32) Anion Gap 7 (6-14) 9 (6-14) Blood Urea Nitrogen 39 mg/dL (8-26) 29 mg/dL (8-26) Creatinine 2.2 mg/dL (0.7-1.3) 1.9 mg/dL (0.7-1.3) Estimated GFR (Cockcroft-Gault) 35.6 42.1 Glucose Level 211 mg/dL (70-99) 188 mg/dL (70-99) Calcium Level 8.3 mg/dL (8.5-10.1) 8.2 mg/dL (8.5-10.1) Glucose (Fingerstick) 195 mg/dL (70-99) 215 mg/dL (70-99) Phosphorus Level 2.8 mg/dL (2.6-4.7) Magnesium Level 2.0 mg/dL (1.8-2.4) Test 06/06/21 05:51 06/06/21 11:39 06/06/21 17:35 06/06/21 23:52 Glucose (Fingerstick) 180 mg/dL (70-99) 196 mg/dL (70-99) 179 mg/dL (70-99) 195 mg/dL (70-99) Test 06/07/21 03:30 06/07/21 03:35 White Blood Count 11.9 x10^3/uL (4.0-11.0) Red Blood Count 2.50 x10^6/uL (4.30-5.70) Hemoglobin 6.9 g/dL (13.0-17.5) Hematocrit 21.4 % (39.0-53.0) Mean Corpuscular Volume 86 fL (79-100) Mean Corpuscular Hemoglobin 28 pg (25-35) Mean Corpuscular Hemoglobin Concent 32 g/dL (31-37) Red Cell Distribution Width 17.6 % (11.5-14.5) Platelet Count 281 x10^3/uL (140-400) Neutrophils (%) (Auto) 52 % (31-73) Lymphocytes (%) (Auto) 24 % (24-48) Monocytes (%) (Auto) 16 % (0-9) Eosinophils (%) (Auto) 7 % (0-3) Basophils (%) (Auto) 1 % (0-3) Neutrophils # (Auto) 6.1 x10^3/uL (1.8-7.7) Lymphocytes # (Auto) 2.8 x10^3/uL (1.0-4.8) Monocytes # (Auto) 1.9 x10^3/uL (0.0-1.1) Eosinophils # (Auto) 0.9 x10^3/uL (0.0-0.7) Basophils # (Auto) 0.2 x10^3/uL (0.0-0.2) Sodium Level 139 mmol/L (136-145) Potassium Level 4.0 mmol/L (3.5-5.1) Chloride Level 106 mmol/L (98-107) Carbon Dioxide Level 27 mmol/L (21-32) Anion Gap 6 (6-14) Blood Urea Nitrogen 38 mg/dL (8-26) Creatinine 2.3 mg/dL (0.7-1.3) Estimated GFR (Cockcroft-Gault) 33.8 BUN/Creatinine Ratio 17 (6-20) Glucose Level 200 mg/dL (70-99) Calcium Level 8.1 mg/dL (8.5-10.1) Total Bilirubin 0.4 mg/dL (0.2-1.0) Aspartate Amino Transf (AST/SGOT) 14 U/L (15-37) Alanine Aminotransferase (ALT/SGPT) 7 U/L (16-63) Alkaline Phosphatase 61 U/L (46-116) Total Protein 5.2 g/dL (6.4-8.2) Albumin 1.6 g/dL (3.4-5.0) Albumin/Globulin Ratio 0.4 (1.0-1.7) Triglycerides Level 104 mg/dL (0-150) Glucose (Fingerstick) 184 mg/dL (70-99) Laboratory Tests Test 06/06/21 11:39 06/06/21 17:35 06/06/21 23:52 06/07/21 03:30 Glucose (Fingerstick) 196 mg/dL (70-99) 179 mg/dL (70-99) 195 mg/dL (70-99) White Blood Count 11.9 x10^3/uL (4.0-11.0) Red Blood Count 2.50 x10^6/uL (4.30-5.70) Hemoglobin 6.9 g/dL (13.0-17.5) Hematocrit 21.4 % (39.0-53.0) Mean Corpuscular Volume 86 fL (79-100) Mean Corpuscular Hemoglobin 28 pg (25-35) Mean Corpuscular Hemoglobin Concent 32 g/dL (31-37) Red Cell Distribution Width 17.6 % (11.5-14.5) Platelet Count 281 x10^3/uL (140-400) Neutrophils (%) (Auto) 52 % (31-73) Lymphocytes (%) (Auto) 24 % (24-48) Monocytes (%) (Auto) 16 % (0-9) Eosinophils (%) (Auto) 7 % (0-3) Basophils (%) (Auto) 1 % (0-3) Neutrophils # (Auto) 6.1 x10^3/uL (1.8-7.7) Lymphocytes # (Auto) 2.8 x10^3/uL (1.0-4.8) Monocytes # (Auto) 1.9 x10^3/uL (0.0-1.1) Eosinophils # (Auto) 0.9 x10^3/uL (0.0-0.7) Basophils # (Auto) 0.2 x10^3/uL (0.0-0.2) Sodium Level 139 mmol/L (136-145) Potassium Level 4.0 mmol/L (3.5-5.1) Chloride Level 106 mmol/L (98-107) Carbon Dioxide Level 27 mmol/L (21-32) Anion Gap 6 (6-14) Blood Urea Nitrogen 38 mg/dL (8-26) Creatinine 2.3 mg/dL (0.7-1.3) Estimated GFR (Cockcroft-Gault) 33.8 BUN/Creatinine Ratio 17 (6-20) Glucose Level 200 mg/dL (70-99) Calcium Level 8.1 mg/dL (8.5-10.1) Total Bilirubin 0.4 mg/dL (0.2-1.0) Aspartate Amino Transf (AST/SGOT) 14 U/L (15-37) Alanine Aminotransferase (ALT/SGPT) 7 U/L (16-63) Alkaline Phosphatase 61 U/L (46-116) Total Protein 5.2 g/dL (6.4-8.2) Albumin 1.6 g/dL (3.4-5.0) Albumin/Globulin Ratio 0.4 (1.0-1.7) Triglycerides Level 104 mg/dL (0-150) Test 06/07/21 03:35 Glucose (Fingerstick) 184 mg/dL (70-99) Medications Active Scripts Medications Dose Route/Sig Max Daily Dose Days Date Category Glyburide 2.5 Mg Tablet 1 Tab PO DAILY 04/19/21 Rx Polyethylene Glycol 3350 17 Gm Powd.pack 17 Gm PO DAILY 04/19/21 Rx Dok (Docusate Sodium) 100 Mg Capsule 100 Mg PO PRN DAILY PRN 04/19/21 Rx Bisacodyl 5 Mg Tablet. 5 Mg PO PRN DAILY PRN 04/19/21 Rx Acetaminophen 325 Mg Tablet 650 Mg PO PRN Q4HRS PRN 04/19/21 Rx Aspirin Ec (Aspirin) 81 Mg Tablet. 81 Mg PO DAILYWBKFT 04/19/21 Rx Hydralazine Hcl 25 Mg Tablet 25 Mg PO QID 30 04/19/21 Rx Fenofibrate 54 Mg Tablet 1 Tab PO DAILY 04/17/21 Reported Potassium Chloride (Potassium Chloride) 20 Meq Tablet.er 20 Meq PO DAILY 04/17/21 Reported Coreg (Carvedilol) 12.5 Mg Tablet 37.5 Mg PO BIDWMEALS 04/17/21 Reported Rosuvastatin Calcium 40 Mg Tablet 40 Mg PO QHS 04/17/21 Reported Gabapentin (Gabapentin) 100 Mg Capsule 200 Mg PO BID 04/17/21 Reported Montelukast Sodium Tablet (Montelukast Sodium) 10 Mg Tablet 10 Mg PO HS 04/17/21 Reported Protonix (Pantoprazole Sodium) 20 Mg Tablet.dr 2 Tab PO DAILY 04/17/21 Reported Amlodipine Besylate 5 Mg Tablet 5 Mg PO DAILY 04/17/21 Reported Furosemide 40 Mg Tablet 1 Tab PO DAILY 04/17/21 Reported Proair Hfa Inhaler (Albuterol Sulfate) 8.5 Gm Hfa.aer.ad 2 Puff IH PRN Q4-6HRS PRN 21 04/16/21 Reported Advair 100-50 Diskus (Fluticasone/Salmeterol) 1 Each Disk.w.dev 1 Puff IH BID 04/16/21 Reported Comments Chest x-ray 06/04/2021 reviewed. Bilateral interstitial infiltrates and a small right lower lobe effusion consistent with CHF. Impression . IMPRESSION: 1. Acute hypoxic respiratory failure, multifactorial/COVID-19 viral pneumonia/ARDS, ongoing, intubated 04/25/2021, now status post tracheostomy 05/15/[address] chest with bilateral diffuse interstitial infiltrates without any significant pleural effusion 3. Leukocytosis, sepsis--improved 4. Non-ST segment elevation [place] 5. History of tobacco use, suspect COPD, unknown FEV1 6. Chronic kidney disease.== HD as needed per renal 7. Metabolic acidosis multifactorial 8. Abnormal chest x-ray 9. Hypoglycemia, continue to monitor--- resolved 10. Hypotension, suspect volume deficit,/possible sepsis--- resolved 11. Fever--improved 12. Anemia--improved 13. Atrial fibrillation with rapid ventricular response, currently rate controlled 14. Ileus 15. ? fungemia Plan . Updated 06/07/2021 Continue daily pressure support Will initiate trach shield trial again as tolerated. Follow infectious disease recommendations. Currently on fluconazole. Continue Precedex as needed It has been difficult to wean the patient due to nonpulmonary issues such as arrhythmias, worsening hypertension and tachycardia and current ileus. Has done better in the last 3 to 4 days Monitor HGB Follow GI recs-- ileus, PEG tube on hold, Follow nephrology recs-- hemodialysis per nephro Follow infectious disease recommendations for ABX Continue TPN for nutritional support DVT/GI PPX: sq heparin-- on hold D/W RN and RT Possible PEG tube placement next week Pt. is DNR Updated 06/06/2021 Continue current ventilatory support, /40/5 Will initiate trach shield trial again. Follow infectious disease recommendations. Currently on fluconazole. Continue Precedex It has been difficult to wean the patient due to nonpulmonary issues such as arrhythmias, worsening hypertension and tachycardia and current ileus. Monitor HGB Follow GI recs-- ileus, PEG tube on hold, Follow nephrology recs-- hemodialysis per nephro Follow infectious disease recommendations for ABX Continue TPN for nutritional support DVT/GI PPX: sq heparin-- on hold D/W RN and RT Possible PEG tube placement next week Pt. is DNR Updated 06/05/21 Continue current ventilatory support, /40/5 Will initiate trach shield trial again. f/u yeast in , Continue cefepime and flagyl, Cont micafungin June 02 DC Zyvox Continue Precedex fentanyl tachypneac propofol added It has been difficult to wean the patient due to nonpulmonary issues such as arrhythmias, worsening hypertension and tachycardia and current ileus. Monitor HGB Follow GI recs-- ileus, PEG tube on hold, Follow nephrology recs-- hemodialysis per nephro Follow infectious disease recommendations for ABX Continue TPN for nutritional support DVT/GI PPX: sq heparin-- on hold D/W RN and RT Pt. is DNR Updated 06/04/21 Continue current ventilatory support, 500/40/5 Will initiate trach shield trial after replacement of dialysis catheter. f/u yeast in , Continue cefepime and flagyl, Cont micafungin June 02, DC Zyvox Continue Precedex fentanyl tachypneac propofol added It has been difficult to wean the patient due to nonpulmonary issues such as arrhythmias, worsening hypertension and tachycardia and current ileus. Monitor HGB Follow GI recs-- ileus, PEG tube on hold, Follow nephrology recs-- hemodialysis per nephro Follow infectious disease recommendations for ABX Continue TPN for nutritional support DVT/GI PPX: sq heparin-- on hold D/W RN and RT Pt. is DNR Updated 06/03/21 Continue current ventilatory support, 20/500/40/5 f/u yeast in bc, Continue cefepime and flagyl, Cont micafungin June 02, DC Zyvox Continue Precedex fentanyl tachypneac propofol added It has been difficult to wean the patient due to nonpulmonary issues such as arrhythmias, worsening hypertension and tachycardia and current ileus. Monitor HGB Follow GI recs-- ileus, PEG tube on hold, Follow nephrology recs-- hemodialysis per nephro Follow infectious disease recommendations for ABX Continue TPN for nutritional support DVT/GI PPX: sq heparin-- on hold D/W RN and RT Pt. is DNR Updated 06/02/21 Continue current ventilatory support, 500/40/5 weaning as tolerated Continue Precedex fentanyl tachypneac will add propofol It has been difficult to wean the patient due to nonpulmonary issues such as arrhythmias, worsening hypertension and tachycardia and current ileus. Monitor HGB Follow GI recs-- ileus, PEG tube on hold, Follow nephrology recs-- hemodialysis per nephro Follow infectious disease recommendations for ABX Continue TPN for nutritional support DVT/GI PPX: sq heparin-- on hold D/W RN and RT Pt. is DNR Updated 06/01/21 Continue current ventilatory support, 500/40/5 Continue Precedex for sedation It has been difficult to wean the patient due to nonpulmonary issues such as arrhythmias, worsening hypertension and tachycardia and current ileus. Monitor HGB Follow GI recs-- ileus, PEG tube on hold, Follow nephrology recs--currently on hemodialysis Follow infectious disease recommendations for ABX Continue TPN for nutritional support DVT/GI PPX: sq heparin-- on hold D/W RN and RT Pt. is DNR CC time 30 minutes Updated 05/31/21 Continue current ventilatory support, 20/500/40/5 Continue Precedex for sedation Monitor HGB Follow GI recs-- ileus, PEG tube on hold, nursing reports 75 cc of NG output Follow nephrology recs--currently on hemodialysis Follow infectious disease recommendations for ABX Continue TPN for nutritional support DVT/GI PPX: sq heparin-- on hold D/W RN and RT Pt. is DNR CC time 30 minutes JONES FISHMAN MD Jun 07, 2021 09:57
[2021-06-07] MEDS: PROPOFOL 100 ML IV PRN ×2 (10:37→22:17)
--- NOTE | 2021-06-07 10:46 | PDOC ---
Date of Service: DATE: 06/07/21 TIME: 10:42 Objective: Objective: 275cc charted out from . Smear of stool mentioned in other notes. Vital Signs: Vital Signs Date Time Temp Pulse Resp B/P (MAP) Pulse Ox O2 Delivery O2 Flow Rate FiO2 06/07/21 09:47 100 Ventilator 06/07/21 09:34 98.2 67 24 178/90 98.2 Labs: Laboratory Tests Test 06/06/21 11:39 06/06/21 17:35 06/06/21 23:52 06/07/21 03:35 Glucose (Fingerstick) 196 mg/dL (70-99) 179 mg/dL (70-99) 195 mg/dL (70-99) 184 mg/dL (70-99) PE: GEN: dialyzing LUNGS: trach/vent HEART: RRR ABD: softish, non-tender, NG canister brown contents NEURO/PSYCH: awake, shakes head no when I ask about abdominal pain A/P: COVID-19/resp failure s/p tracheostomy, ileus -- Retry tube feeds. Justicifation of Admission Dx: Justifications for Admission: Justification of Admission Dx: Yes Aspiration Pneumonia: Hemodynamic Instability TAIWO THEODORE Jun 07, 2021 10:46
[2021-06-07] MEDS: NYSTATIN TOPICAL POWDER 15GM BOTTLE. TP SCH ×2 (11:35→20:35)
--- NOTE | 2021-06-07 12:15 | NUR ---
1 unit packed red blood cells given with dialysis See dialysisi flow sheet for vitals
[2021-06-07] MEDS: FLUCONAZOLE 200MG/100ML PREMIX 100 ML IV SCH (12:55)
[2021-06-07] MEDS: PANTOPRAZOLE IV PUSH 40 MG VIAL. IVP SCH (12:55)
[2021-06-07] MEDS: TPN PER PHARMACY MC PRN (15:22)
--- NOTE | 2021-06-07 15:25 | NUR ---
Pharmacy TPN Dosing Note S: NILAM LAN is a 75 year old M Currently receiving Central Continuous TPN started 05/22/21 B:Pertinent PMH: ILEUS Height: 6 feet, 2 inches Weight: 140.0 kg Current diet: NPO LABS: Sodium: 139 Potassium: 4.0 Chloride: 106 Calcium: 8.1 Corrected Calcium: 10.02 Magnesium: 2 CO2: 27 SCr: 2.3 Glucose: 179-200 Albumin: 1.6 AST: 27 ALT: 19 TPN FORMULA: TPN TYPE: Central Continuous AMINO ACIDS: 90 gm DEXTROSE: 290 gm LIPIDS: 0 gm SODIUM CHLORIDE: 90 mEq POTASSIUM CHLORIDE: 30 mEq POTASSIUM PHOSPHATE: 13.6 mmol MAGNESIUM: 12 mEq MULTIPLE VITAMIN: 5 ml TRACE ELEMENTS: 1 ml(s) TPN PLAN: Continue same. R: Continue TPN Will monitor electrolytes, glucose, and tolerance to TPN. Jaqueline Watson RPH, 06/07/21 152
--- NOTE | 2021-06-07 19:07 | NUR ---
Shift update: Attempt to Cpap 07/10 at 0845 this morning and pt's Tidal volumes and rates were low, Changed back to AC mode. 1430 attempted again to CPap trial with pressure support of 10. Pt's rate 4-5 and volumes less than 100. Changed back to AC mode.
[2021-06-07] MEDS: MONTELUKAST SODIUM 10 MG TABLET. PO SCH (20:35)
[2021-06-07] MEDS: ATORVASTATIN CALCIUM 40 MG TABLET. PO SCH (20:35)
[2021-06-07] MEDS ORDERED: DEXTROSE 70% IV SCH (22:00)
[2021-06-07] MEDS ORDERED: TOTAL PARENTERAL NUTRITION IV SCH (22:00)
[2021-06-07] MEDS ORDERED: AMINO ACID IV SCH (22:00)
[2021-06-07] MEDS ORDERED: [UNRECOGNIZED DRUG - OTHER] IV SCH (22:00)
[2021-06-08] VITALS (21 sets, daily range): BP systolic 140–199; BP diastolic 55–93
[2021-06-08] MEDS: METOPROLOL IV PUSH 5 MG/5 ML VIAL. IVP SCH ×5 (00:13→23:10)
[2021-06-08] MEDS: INSULIN LISPRO 300 UNITS/3 ML VIAL. SQ SCH ×4 (00:13→18:18)
[2021-06-08] MEDS: DEXMEDETOMIDINE 400 MCG in IV NORMAL SALINE 100ML 96 ML IV PRN ×4 (04:51→21:30)
--- NOTE | 2021-06-08 07:38 | PDOC ---
PULMONARY PROGRESS NOTES DATE: 06/08/21 TIME: 07:36 Subjective Patient sedated, currently on assist control, tolerated pressure support yesterday Vitals Vital Signs Date Time Temp Pulse Resp B/P (MAP) Pulse Ox O2 Delivery O2 Flow Rate FiO2 06/08/21 06:18 55 172/70 06/08/21 06:00 20 100 Ventilator 06/08/21 04:00 98.6 98.6 Comments Tracheostomy ros unable to obtain sedated on vent General: No acute distress HEENT: Other (Trachea midline nc at perrl nose clear neck trach site ok no lad) Lungs: Clear, Crackles Cardiovascular: S1, S2 Abdomen: Soft, Other (Nontender) Extremities: No Edema Skin: Warm Labs Laboratory Tests Test 06/06/21 11:39 06/06/21 17:35 06/06/21 23:52 06/07/21 03:30 Glucose (Fingerstick) 196 mg/dL (70-99) 179 mg/dL (70-99) 195 mg/dL (70-99) White Blood Count 11.9 x10^3/uL (4.0-11.0) Red Blood Count 2.50 x10^6/uL (4.30-5.70) Hemoglobin 6.9 g/dL (13.0-17.5) Hematocrit 21.4 % (39.0-53.0) Mean Corpuscular Volume 86 fL (79-100) Mean Corpuscular Hemoglobin 28 pg (25-35) Mean Corpuscular Hemoglobin Concent 32 g/dL (31-37) Red Cell Distribution Width 17.6 % (11.5-14.5) Platelet Count 281 x10^3/uL (140-400) Neutrophils (%) (Auto) 52 % (31-73) Lymphocytes (%) (Auto) 24 % (24-48) Monocytes (%) (Auto) 16 % (0-9) Eosinophils (%) (Auto) 7 % (0-3) Basophils (%) (Auto) 1 % (0-3) Neutrophils # (Auto) 6.1 x10^3/uL (1.8-7.7) Lymphocytes # (Auto) 2.8 x10^3/uL (1.0-4.8) Monocytes # (Auto) 1.9 x10^3/uL (0.0-1.1) Eosinophils # (Auto) 0.9 x10^3/uL (0.0-0.7) Basophils # (Auto) 0.2 x10^3/uL (0.0-0.2) Sodium Level 139 mmol/L (136-145) Potassium Level 4.0 mmol/L (3.5-5.1) Chloride Level 106 mmol/L (98-107) Carbon Dioxide Level 27 mmol/L (21-32) Anion Gap 6 (6-14) Blood Urea Nitrogen 38 mg/dL (8-26) Creatinine 2.3 mg/dL (0.7-1.3) Estimated GFR (Cockcroft-Gault) 33.8 BUN/Creatinine Ratio 17 (6-20) Glucose Level 200 mg/dL (70-99) Calcium Level 8.1 mg/dL (8.5-10.1) Total Bilirubin 0.4 mg/dL (0.2-1.0) Aspartate Amino Transf (AST/SGOT) 14 U/L (15-37) Alanine Aminotransferase (ALT/SGPT) 7 U/L (16-63) Alkaline Phosphatase 61 U/L (46-116) Total Protein 5.2 g/dL (6.4-8.2) Albumin 1.6 g/dL (3.4-5.0) Albumin/Globulin Ratio 0.4 (1.0-1.7) Triglycerides Level 104 mg/dL (0-150) Test 06/07/21 03:35 06/07/21 12:54 06/07/21 17:45 06/08/21 00:11 Glucose (Fingerstick) 184 mg/dL (70-99) 183 mg/dL (70-99) 251 mg/dL (70-99) 220 mg/dL (70-99) Test 06/08/21 06:23 Glucose (Fingerstick) 220 mg/dL (70-99) Laboratory Tests Test 06/07/21 12:54 06/07/21 17:45 06/08/21 00:11 06/08/21 06:23 Glucose (Fingerstick) 183 mg/dL (70-99) 251 mg/dL (70-99) 220 mg/dL (70-99) 220 mg/dL (70-99) Medications Active Scripts Medications Dose Route/Sig Max Daily Dose Days Date Category Glyburide 2.5 Mg Tablet 1 Tab PO DAILY 14 04/19/21 Rx Polyethylene Glycol 3350 17 Gm Powd.pack 17 Gm PO DAILY 14 04/19/21 Rx Dok (Docusate Sodium) 100 Mg Capsule 100 Mg PO PRN DAILY PRN 30 04/19/21 Rx Bisacodyl 5 Mg Tablet.dr 5 Mg PO PRN DAILY PRN 14 04/19/21 Rx Acetaminophen 325 Mg Tablet 650 Mg PO PRN Q4HRS PRN 04/19/21 Rx Aspirin Ec (Aspirin) 81 Mg Tablet.dr 81 Mg PO DAILYWBKFT 30 04/19/21 Rx Hydralazine Hcl 25 Mg Tablet 25 Mg PO QID 30 04/19/21 Rx Fenofibrate 54 Mg Tablet 1 Tab PO DAILY 04/17/21 Reported Potassium Chloride (Potassium Chloride) 20 Meq Tablet.er 20 Meq PO DAILY 04/17/21 Reported Coreg (Carvedilol) 12.5 Mg Tablet 37.5 Mg PO BIDWMEALS 04/17/21 Reported Rosuvastatin Calcium 40 Mg Tablet 40 Mg PO QHS 04/17/21 Reported Gabapentin (Gabapentin) 100 Mg Capsule 200 Mg PO BID 04/17/21 Reported Montelukast Sodium Tablet (Montelukast Sodium) 10 Mg Tablet 10 Mg PO HS 04/17/21 Reported Protonix (Pantoprazole Sodium) 20 Mg Tablet.dr 2 Tab PO DAILY 04/17/21 Reported Amlodipine Besylate 5 Mg Tablet 5 Mg PO DAILY 04/17/21 Reported Furosemide 40 Mg Tablet 1 Tab PO DAILY 04/17/21 Reported Proair Hfa Inhaler (Albuterol Sulfate) 8.5 Gm Hfa.aer.ad 2 Puff IH PRN Q4-6HRS PRN 04/16/21 Reported Advair 100-50 Diskus (Fluticasone/Salmeterol) 1 Each Disk.w.dev 1 Puff IH BID 04/16/21 Reported Comments Chest x-ray 06/04/2021 reviewed. Bilateral interstitial infiltrates and a small right lower lobe effusion cons istent with CHF. Impression . IMPRESSION: 1. Acute hypoxic respiratory failure, multifactorial/COVID-19 viral pneumonia/ARDS, ongoing, intubated 04/25/2021, now status post tracheostomy 05/15/[address] chest with bilateral diffuse interstitial infiltrates without any significant pleural effusion 3. Leukocytosis, sepsis--improved 4. Non-ST segment elevation [place] 5. History of tobacco use, suspect COPD, unknown FEV1 6. Chronic kidney disease.== HD as needed per renal 7. Metabolic acidosis multifactorial, improved 8. Abnormal chest x-ray, compatible with ARDS CHF 9. Hypoglycemia, continue to monitor--- resolved 10. Hypotension, suspect volume deficit,/possible sepsis--- resolved 11. Fever--improved 12. Anemia--improved 13. Atrial fibrillation with rapid ventricular response, currently rate controlled 14. Ileus 15. ? fungemia Plan . Updated 06/08 Discussed with RN Daily pressure support trials Defer PEG to GI service Continue current nutritional support Antibiotics per ID DVT GI prophylaxis Titrate sedation down updated 06/07/2021 Continue daily pressure support Will initiate trach shield trial again as tolerated. Follow infectious disease recommendations. Currently on fluconazole. Continue Precedex as needed It has been difficult to wean the patient due to nonpulmonary issues such as arrhythmias, worsening hypertension and tachycardia and current ileus. Has done better in the last 3 to 4 days Monitor HGB Follow GI recs-- ileus, PEG tube on hold, Follow nephrology recs-- hemodialysis per nephro Follow infectious disease recommendations for ABX Continue TPN for nutritional support DVT/GI PPX: sq heparin-- on hold D/W RN and RT Possible PEG tube placement next week Pt. is DNR ADELSO AVILA MD Jun 08, 2021 07:38
[2021-06-08] MEDS: PANTOPRAZOLE IV PUSH 40 MG VIAL. IVP SCH (07:50)
[2021-06-08] MEDS: ASPIRIN CHEWABLE 81 MG TABLET. PO SCH (07:50)
[2021-06-08] MEDS: INSULIN GLARGINE SYRINGE. SQ SCH ×2 (07:52→21:02)
[2021-06-08] MEDS: BISACODYL 10 MG SUPP.RECT. PR PRN (07:53)
--- NOTE | 2021-06-08 08:58 | PDOC ---
DATE OF SERVICE DATE: 06/08/21 TIME: 08:56 SUBJECTIVE ROS remains on vent , tolerated pressure support yesterday OBJECTIVE Vital Signs Vital Signs Date Time Temp Pulse Resp B/P (MAP) Pulse Ox O2 Delivery O2 Flow Rate FiO2 06/08/21 08:16 100 Ventilator 06/08/21 07:50 55 180/73 06/08/21 07:46 98.2 20 98.2 I & 0 Intake and Output 06/08/21 07:00 Intake Total 1828 ml Output Total 360 ml Balance 1468 ml IV Total 1422 ml Tube Feeding 276 ml Other 130 ml Output Urine Total 360 ml Gastric Drainage Total 0 ml PHYSICAL EXAM Physical Exam GENERAL: sedated, on Vent HEENT: NG tube present NECK: Trach + HEART: S1, S2. LUNGS: Decreased breath sounds. ABDOMEN: bowel sounds present GENITOURINARY: Nieves in place. EXTREMITIES: Edema present. DERMATOLOGIC: Warm, dry, no generalized rash. NEUROLOGIC: Opens eyes DIAGNOSIS/ASSESSMENT Assessment & Plan ILDA-ATN- requiring dialysis; currently TTS schedule Non Oliguric , marginal UOp dialysis , labs pending Seen on dialysis, tolerating well. discussed treatment plan with Ashly ,Access new Temp HDC placed 06/04 Fungemia- on antifungal HypoNatremia- Resolved HypoKalemia CKD stage 3 Acute Hypoxic Resp failure - S/P Trach COVID 19 Pneumonia Anemia - Hgb <7 , PRBC on HD today COMMENT/RELEVANT DATA Meds Current Medications Medications (Trade) Dose Ordered Sig/Jodie Start Time Stop Time Status Last Admin Dose Admin Acetaminophen (Tylenol Supp) 650 mg PRN Q6HRS PRN 05/29/21 16:15 05/29/21 16:37 650 MG Acetaminophen (Tylenol) 650 mg PRN Q6HRS PRN 04/24/21 14:00 Cancel Albumin Human 100 ml @ 100 mls/hr 1X PRN PRN 06/05/21 10:15 06/05/21 16:14 DC 06/05/21 11:10 100 MLS/HR Amiodarone HCl (Cordarone) 200 mg DAILY 04/28/21 09:00 05/22/21 16:27 DC 05/21/21 11:07 200 MG Amiodarone HCl 150 mg/Dextrose 103 ml @ 618 mls/hr 1X ONCE 04/27/21 02:30 04/27/21 02:39 DC 04/27/21 02:30 618 MLS/HR Amiodarone HCl 450 mg/Dextrose 259 ml @ 0 mls/hr 1X ONCE 05/22/21 16:30 05/22/21 16:34 DC 05/22/21 16:59 33 MLS/HR Amlodipine Besylate (Norvasc) 10 mg DAILY 05/16/21 09:00 06/08/21 07:50 10 MG Aspirin (Aspirin Chewable) 81 mg DAILYWBKFT 05/03/21 10:00 06/08/21 07:50 81 MG Aspirin (Ecotrin) 81 mg DAILYWBKFT 04/25/21 08:00 05/03/21 09:56 DC 05/02/21 07:20 81 MG Atorvastatin Calcium (Lipitor) 80 mg QHS 04/24/21 21:00 06/07/21 20:35 80 MG Bisacodyl (Dulcolax Supp) 10 mg 1X ONCE 06/04/21 16:30 06/04/21 16:31 DC 06/04/21 17:56 10 MG Bupivacaine HCl/ Epinephrine Bitart (Sensorcain-Epi 0.5%-1:[id number] Mpf) 30 ml STK-MED ONCE 05/15/21 07:05 05/15/21 07:06 DC Carvedilol (Coreg) 3.125 mg BIDWMEALS 04/24/21 17:00 04/25/21 15:42 DC 04/25/21 09:23 3.125 MG Cefepime HCl (Maxipime) 1 gm Q12HR 05/30/21 09:00 06/05/21 07:34 DC 06/04/21 20:31 1 GM Cellulose (Surgicel Fibrillar 1x2) 1 each STK-MED ONCE 05/15/21 07:05 05/15/21 07:06 DC 05/15/21 09:40 1 EACH Chlorhexidine Gluconate (Peridex) 15 ml BID 04/24/21 21:00 04/25/21 11:19 DC 04/24/21 20:49 15 ML Daptomycin 600 mg/ Sodium Chloride 50 ml @ 100 mls/hr Q48H 05/04/21 15:00 05/06/21 08:07 DC 05/04/21 15:24 100 MLS/HR Dexamethasone Sodium Phosphate (Decadron) 4 mg STK-MED ONCE 05/15/21 07:53 05/15/21 07:53 DC Dexmedetomidine HCl 400 mcg/ Sodium Chloride 100 ml @ 0 mls/hr CONT PRN 05/04/21 10:30 06/08/21 04:51 16.4 MLS/HR Dextrose (Dextrose 50%-Water Syringe) 12.5 gm PRN Q15MIN PRN 05/03/21 14:00 Digoxin (Lanoxin) 250 mcg 1X ONCE 04/26/21 13:00 04/26/21 13:05 DC 04/26/21 15:02 250 MCG Ephedrine Sulfate (ePHEDrine PF IN SALINE SYRINGE) 50 mg STK-MED ONCE 05/15/21 09:15 05/15/21 09:15 DC Erythromycin (Romycin) 0.25 inch BID 05/17/21 12:00 05/25/21 13:24 DC 05/25/21 07:43 0.25 INCH Etomidate (Amidate) 20 mg STK-MED ONCE 04/24/21 13:38 04/24/21 13:38 DC Fentanyl Citrate 30 ml @ 0 mls/hr CONT PRN 04/24/21 14:00 06/08/21 01:14 2.5 MLS/HR Fentanyl Citrate (Fentanyl 2ml Vial) 25 mcg PRN Q1HR PRN 04/24/21 14:00 05/17/21 16:12 25 MCG Fluconazole/ Sodium Chloride 100 ml @ 100 mls/hr Q24H 06/05/21 09:00 06/07/21 12:55 100 MLS/HR Furosemide (Lasix) 80 mg TID 05/27/21 09:00 06/01/21 11:08 DC 05/31/21 20:10 80 MG Heparin Sodium (Porcine) (Heparin Sodium) 5,000 unit Q8HRS 05/18/21 10:00 05/30/21 11:07 DC 05/30/21 06:07 5,000 UNIT Heparin Sodium/ Dextrose 250 ml @ 0 mls/hr CONT PRN 04/24/21 16:45 05/01/21 12:32 DC 05/01/21 05:10 10 MLS/HR Hydralazine HCl (Apresoline Inj) 10 mg PRN QID PRN 05/22/21 16:30 05/29/21 08:08 10 MG Hydralazine HCl (Apresoline) 25 mg QID 05/10/21 10:00 05/22/21 16:27 DC 05/21/21 17:24 25 MG Info (Anti-Coagulation Monitoring By Pharmacy) 1 each PRN DAILY PRN 04/25/21 13:00 05/02/21 07:36 DC 04/26/21 08:51 1 EACH Info (PHARMACY MONITORING -- do not chart) 1 each PRN DAILY PRN 06/07/21 08:00 UNV Info (Tpn Per Pharmacy) 1 each PRN DAILY PRN 05/22/21 10:00 06/07/21 15:22 1 EACH Insulin Glargine (Lantus Syringe) 20 unit BID 05/31/21 09:00 06/08/21 07:52 20 UNIT Insulin Human Lispro (HumaLOG) 0-5 UNITS Q6HRS 05/03/21 18:00 06/08/21 06:24 3 UNITS Labetalol HCl (Normodyne Iv Push) 20 mg PRN Q2HR PRN 05/01/21 12:30 05/27/21 15:43 20 MG Lidocaine HCl (Buffered Lidocaine 1%) 6 ml 1X ONCE 06/04/21 09:30 06/04/21 09:31 DC 06/04/21 09:34 2 ML Lidocaine HCl (Lidocaine Pf 2% Vial) 5 ml STK-MED ONCE 05/15/21 07:53 05/15/21 07:53 DC Linezolid/Dextrose 300 ml @ 300 mls/hr Q12HR 05/31/21 09:00 UNV Lorazepam (Ativan Inj) 0.25 mg PRN Q4HRS PRN 05/21/21 09:00 06/02/21 04:30 0.25 MG Magnesium Sulfate 50 ml @ 25 mls/hr 1X ONCE 06/02/21 08:45 06/02/21 10:44 DC 06/02/21 09:53 25 MLS/HR Meropenem 500 mg/ Sodium Chloride 50 ml @ 100 mls/hr DAILY 05/23/21 09:00 05/25/21 11:55 DC 05/25/21 07:42 100 MLS/HR Metoprolol Tartrate (Lopressor Vial) 5 mg Q6HRS 04/25/21 18:00 06/08/21 06:18 5 MG Metronidazole 100 ml @ 100 mls/hr Q12HR 05/30/21 09:00 06/05/21 07:34 DC 06/04/21 20:32 100 MLS/HR Micafungin Sodium 100 mg/Dextrose 100 ml @ 100 mls/hr Q24H 06/02/21 09:00 06/05/21 07:34 DC 06/04/21 09:54 100 MLS/HR Midazolam HCl (Versed) 5 mg 1X ONCE 05/24/21 15:15 05/24/21 15:16 DC 05/24/21 15:20 5 MG Montelukast Sodium (Singulair) 10 mg HS 04/24/21 21:00 06/07/21 20:35 10 MG Multi-Ingred Cream/Lotion/Oil/ Oint (Artificial Tears Eye Ointment) 1 danielito PRN Q1HR PRN 05/07/21 16:00 05/10/21 20:51 1 DANIELITO Nicardipine HCl 50 mg/Sodium Chloride 250 ml @ 25 mls/hr CONT PRN 05/06/21 18:45 05/20/21 19:47 37.5 MLS/HR Norepinephrine Bitartrate 8 mg/ Dextrose 258 ml @ 25.852 mls/ hr CONT PRN 05/02/21 21:00 05/09/21 06:10 DC 05/02/21 21:22 25.852 MLS/HR Nystatin (Nystop) 1 danielito BID 05/16/21 21:00 06/07/21 20:35 1 DANIELITO Ondansetron HCl (Zofran) 4 mg STK-MED ONCE 05/15/21 07:53 05/15/21 07:53 DC Pantoprazole Sodium (PROTONIX VIAL for IV PUSH) 40 mg DAILYAC 04/26/21 09:30 06/08/21 07:50 40 MG Phenylephrine HCl (PHENYLEPHRINE in 0.9% NACL PF) 1 mg STK-MED ONCE 05/15/21 07:51 05/15/21 07:51 DC Potassium Bicarbonate (Potassium Effervescent Tablet) 40 meq 1X ONCE 05/19/21 08:30 05/19/21 08:31 DC 05/19/21 08:50 40 MEQ Potassium Chloride/Water 100 ml @ 100 mls/hr Q1H 05/23/21 10:45 05/23/21 12:44 DC 05/23/21 13:17 100 MLS/HR Potassium Phosphate 10 mmol/ Sodium Chloride 103.3333 ml @ 51.667 m... Q2H 06/01/21 12:00 06/01/21 15:59 DC 06/01/21 13:24 51.667 MLS/HR Potassium Phosphate 13.6 mmol/Sodium Chloride 254.5333 ml @ 127.... 1X ONCE 05/31/21 12:00 05/31/21 13:59 DC 05/31/21 12:08 127.267 MLS/HR Potassium Phosphate 20 mmol/ Sodium Chloride 256.6667 ml @ 62.5 mls/hr 1X ONCE 05/13/21 12:15 05/13/21 16:21 UNV Potassium Phosphate 30 mmol/ Sodium Chloride 260 ml @ 62.5 mls/hr 1X ONCE 05/13/21 12:15 05/13/21 16:24 UNV Prochlorperazine Edisylate (Compazine) 5 mg PACU PRN PRN 05/15/21 06:00 05/16/21 05:59 DC Propofol 100 ml @ 4.185 mls/ hr CONT PRN 06/02/21 09:30 06/07/21 22:17 8.37 MLS/HR Propofol (Diprivan) 200 mg STK-MED ONCE 05/15/21 07:53 05/15/21 07:53 DC Remdesivir 100 mg/ Sodium Chloride 230 ml @ 460 mls/hr Q24H 04/26/21 17:30 04/29/21 17:59 DC 04/29/21 13:51 460 MLS/HR Remdesivir 200 mg/ Sodium Chloride 210 ml @ 210 mls/hr 1X ONCE 04/25/21 17:30 04/25/21 18:29 DC 04/25/21 17:09 210 MLS/HR Ringer's Solution 1,000 ml @ 30 mls/hr Q24H 05/15/21 06:00 05/15/21 17:59 DC 05/15/21 07:04 30 MLS/HR Rocuronium Montara (Zemuron) 50 mg STK-MED ONCE 05/15/21 07:06 05/15/21 07:07 DC Sodium Bicarbonate (Sodium Bicarb Adult 8.4% Syr) 50 meq 1X ONCE 04/27/21 09:45 04/27/21 09:46 DC 04/27/21 09:50 50 MEQ Sodium Chloride (Normal Saline Flush) 10 ml 1X PRN PRN 06/01/21 08:00 06/02/21 07:59 DC Sodium Chloride 90 meq/Potassium Chloride 25 meq/ Magnesium Sulfate 10 meq/Calcium Gluconate 5 meq/ Multivitamins 5 ml/Zinc/Copper/ Manganese/ Selenium 1 ml/ Total Parenteral Nutrition/Amino Acids/Dextrose/ Fat Emulsion Intravenous 1,080 ml @ 45 mls/hr TPN CONT 05/22/21 22:00 05/23/21 21:59 DC 05/22/21 21:22 45 MLS/HR Sodium Chloride 90 meq/Potassium Chloride 30 meq/ Potassium Phosphate 13.6 mmol/Magnesium Sulfate 10 meq/ Multivitamins 5 ml/Zinc/Copper/ Manganese/ Selenium 1 ml/ Total Parenteral Nutrition/Amino Acids/Dextrose/ Fat Emulsion Intravenous 1,200 ml @ 50 mls/hr TPN CONT 06/01/21 22:00 06/02/21 21:59 DC 06/01/21 21:33 50 MLS/HR Sodium Chloride 90 meq/Potassium Chloride 30 meq/ Potassium Phosphate 13.6 mmol/Magnesium Sulfate 12 meq/ Multivitamins 5 ml/Zinc/Copper/ Manganese/ Selenium 1 ml/ Total Parenteral Nutrition/Amino Acids/Dextrose 1,200 ml @ 50 mls/hr TPN CONT 06/07/21 22:00 06/08/21 21:59 06/07/21 22:16 50 MLS/HR Sodium Chloride 90 meq/Potassium Chloride 30 meq/ Potassium Phosphate 13.6 mmol/Magnesium Sulfate 12 meq/ Multivitamins 5 ml/Zinc/Copper/ Manganese/ Selenium 1 ml/ Total Parenteral Nutrition/Amino Acids/Dextrose/ Fat Emulsion Intravenous 1,200 ml @ 50 mls/hr TPN CONT 06/02/21 22:00 06/03/21 21:59 DC 06/02/21 21:31 50 MLS/HR Sodium Chloride 90 meq/Potassium Chloride 50 meq/ Magnesium Sulfate 10 meq/Calcium Gluconate 5 meq/ Multivitamins 5 ml/Zinc/Copper/ Manganese/ Selenium 1 ml/ Total Parenteral Nutrition/Amino Acids/Dextrose/ Fat Emulsion Intravenous 960 ml @ 40 mls/hr TPN CONT 05/27/21 22:00 05/28/21 21:59 DC 05/27/21 22:03 40 MLS/HR Sodium Chloride 90 meq/Potassium Chloride 50 meq/ Potassium Phosphate 5 mmol/ Magnesium Sulfate 10 meq/Calcium Gluconate 5 meq/ Multivitamins 5 ml/Zinc/Copper/ Manganese/ Selenium 1 ml/ Total Parenteral Nutrition/Amino Acids/Dextrose/ Fat Emulsion Intravenous 1,200 ml @ 50 mls/hr TPN CONT 05/30/21 22:00 05/31/21 21:59 DC 05/30/21 21:57 50 MLS/HR Sodium Phosphate 15 mmol/Dextrose 105 ml @ 105 mls/hr 1X ONCE 05/29/21 11:00 05/29/21 11:59 DC 05/29/21 11:53 105 MLS/HR Sodium Phosphate 15 mmol/Sodium Chloride 105 ml @ 105 mls/hr 1X ONCE 05/29/21 11:45 05/29/21 12:44 UNV Succinylcholine Chloride (Anectine) 200 mg STK-MED ONCE 04/24/21 13:38 04/24/21 13:38 DC Vecuronium Montara (Norcuron Bolus) 6 mg PRN Q6HRS PRN 04/30/21 11:15 05/14/21 09:12 6 MG Lab Laboratory Tests Test 06/07/21 12:54 06/07/21 17:45 06/08/21 00:11 06/08/21 06:23 Glucose (Fingerstick) 183 mg/dL (70-99) 251 mg/dL (70-99) 220 mg/dL (70-99) 220 mg/dL (70-99) Results All relevant outside records, renal labs, imaging studies, telemetry/EKG's were reviewed. Justicifation of Admission Dx: Justifications for Admission: Justification of Admission Dx: Yes Aspiration Pneumonia: Hemodynamic Instability JASMEET LAM MD Jun 08, 2021 08:58
--- NOTE | 2021-06-08 10:54 | PDOC ---
[employer] PROGRESS NOTE Date of Service DOS: DATE: 06/08/21 TIME: 10:52 Chief Complaint Chief Complaint Respiratory failure requiring intubation COVID-19 Acute IN A. fib SIRS Hypertension with hypertensive urgency Hyperlipidemia CKD Diabetes History of bilateral subclavian stenosis History of marijuana use Severe protein calorie malnutrition Trach placed on May 15 GI consulted for PEG evaluation --> patient with a lot of vomiting yesterday thus current NG tube to low intermittent suction Anemia secondary to acute blood loss, possible multiple lab draws and related to advanced CKD Positive yeast on 1 out of 4 bottles on blood cultures FEN - TPN PPX - PPI CODE - DNR/DNI Dispo - ICU critically ill History of Present Illness History of Present Illness 06/08: Afebrile. On minimal sedation propofol Precedex tolerated pressure support yesterday back on AC PEEP 5 FiO2 40% use more alert trying to pull out his tracheostomy successfully disconnected himself from the vent. Not easily redirectable. Admits for safety. Continues to be in A. fib. Labs pending CC time 31 min spent in reviewing chart, labs, and images. Discussed with RN and SW. 06/07: Afebrile. On minimal sedation propofol and Precedex with for trach PEEP 5 FiO2 40%. He is to be in A. fib. Hb 6.9. Will transfuse with dialysis today. Did have stool smear overnight 06/06: Afebrile. On minimal sedation with propofol and Precedex and vent support via trach PEEP 5 FiO2 40%. Still in A. fib on telemetry. Catheter tip no growth to date sputum with Mariya. Repeat blood cultures no growth to date 06/05: Afebrile. Still requiring minimal sedation on propofol and Precedex. Requiring vent support via trach PEEP five FiO2 40%. KUB with less gaseous distention. No BM but bowel sounds are audible. 06/04: No overnight events afebrile. Sedated on propofol and Precedex. On vent with tracheostomy PEEP 5 FiO2 40%. Being treated for fungemia and receiving TPN. Left IJ CVC functioning well. HD catheter right. 06/03: No acute events overnight. Left IJ placed by IR. Defer to ID for antibiotic management for cultures of the catheter tip and yeast. 06/02: No acute events overnight. Patient saturating 100% on trach collar. Tmax 100.3. Yeast 1 of 4 bottles on blood cultures. Plan to remove central line and dialysis catheter. Family consideration for tunneled catheterization possibly hold. Micafungin was started per ID. 06/01: No acute events overnight. Patient saturating well on trach collar. Patient seen and examined bedside and on HD. Hemoglobin trended down from 8.4- 7.3. Afebrile in the last 24 hours. Patient's chart, labs, images were reviewed and discussed with RN 05/31: No acute events overnight. Patient saturating 100% on trach collar. Hemoglobin improved after 1 unit PRBC transfusion to 8.4. Patient is currently undergoing dialysis and his labs have been stable. Patient's chart, labs, images were reviewed and discussed with RN 05/30: No acute events overnight. Patient doing well on trach collar. Hemoglobin decreased down to 6.7 pending 1 unit PRBC transfusion. Restarted on linezolid and Flagyl and cefepime. Pending PICC placement and central line IJ removal. 05/29: No acute events or night. Patient tolerating trach collar humidified. Saturating at 99%. Pending PICC line placement and IJ central line removal. Per ID. Possibly in not needing HD. Making urine adequately with Lasix as needed. 05/28: No acute events overnight. Patient doing well on trach with settings of 40% FiO2 and PEEP of 8. Pending PEG placement after ileus is resolved will defer this to GI for timing of PEG placement.. Also pending tunneled catheter placement for dialysis. 05/27: Afebrile. On vent with FiO2 40%, PEEP 5. Hemoglobin remains stable at 7.2 today; continue to trend. WBC 13.4. Kidney function appears to be stabilized. LTAC transfer is pending PEG tube placement. Off meropenem; will continue to monitor. Kidney function appears to be stable. 05/26: Afebrile. On vent with FiO2 40%, PEEP 5. Hemoglobin 7.3 yesterday, and hemoglobin 7.2 today; continue to trend. Leukocytosis slightly improved, WBC 12.9 today. Has been accepted at [facility]; transfer pending, but will need PEG tube placement prior. 05/25: Afebrile. On vent with FiO2 40%, PEEP 5. Hemoglobin 8.6 yesterday, hemoglobin 7.3 today. Reportedly had HD yesterday. Continue IV antibiotics, per ID; WBC possibly reactive to ileus. Has been accepted at [facility]; tr key pending, but will need PEG tube placement prior. 05/24: No acute events overnight. Afebrile. NG tube output has decreased. Kidney function appears stable. Continue IV antibiotics, per ID. Patient has been accepted to [facility] hospital, pending insurance authorization. 05/23: Afebrile. On vent with FiO2 40%, PEEP 5. NG tube for 635 mL out overnight. Continue NG tube to suction. HD per nephrology. Continue IV antibiotics, per ID. Critical care time 30 minutes spent reviewing charts, reviewing labs, reviewing imaging, discussion with RN. 05/22: Afebrile. On vent with FiO2 40%, PEEP 5. Excessive NG output. Continue NG tube to suction for now; PEG on hold for now. Continue hemodialysis, per nephrology. Continue IV antibiotics, per ID. Social work helping with discharge planning to LTACH likely in the near future after PEG 05/21: Afebrile, no acute events overnight. Remains on vent, FiO2 40%, PEEP 5. S/P tracheostomy on 05/15/2021. KUB on 05/19/2021 consistent with ileus. Per GI, continue NG tube to suction and parenteral nutrition for now. Continue IV antibiotics, per ID. Continue hemodialysis 05/20: Patient seen and examined at bedside. Again had multiple bouts of vomiting yesterday. GI continuing to follow for PEG evaluation although on hold right now due to persistent vomiting. Leukocytosis does persist but patient afebrile. Plan of care discussed with bedside RN 05/19: Patient seen and examined at bedside. Apparently had a fair bit of vomiting overnight. GI following for PEG evaluation. Otherwise patient remained stable. Plan of care discussed with bedside nurse. 05/18: Patient seen and examined at bedside. Attempting to increase tube feeds, GI consulted for PEG evaluation. Otherwise no major clinical changes. Continue to wean sedation. Plan of care discussed with bedside nurse. 05/17: Patient seen and examined at bedside. Attempting to wean sedation. Patie nt with some diarrhea. Per infectious disease will give erythromycin eye ointment for eye lesions. Nephro and pulm also following. Continue sedation weaning, plan of care discussed with bedside nurse. 05/16: Patient seen and examined at bedside. Underwent tracheostomy yesterday today tolerated well. When seen this morning patient is still notably sedated respiratory status is stable. Continue antibiotics and supportive measures. 05/15: Patient seen and examined at bedside. Remains intubated and sedated planning for tracheostomy today. Continue current respiratory support; continue antibiotics, continue sedation. 05/14: Patient seen and examined at bedside. Remains intubated and sedated planning for tracheostomy tomorrow. Continue current respiratory support; continue antibiotics, continue sedation. Follow recommendations of pulmonary, renal, and infectious disease 05/13: Did not tolerate sedation vacation 05/11/2021, profoundly hypertensive. ABG/CXR--changes as needed. Continue iv cefepime , add zyvox, sputum culture. VENT %, 5 of PEEP. Mild pulmonary edema with new small right pleural effusion and basilar opacities. now on cardene gtt prn 05/12: Continue iv cefepime , add zyvox, sputum culture. VENT [id number]%, 5 of PEEP. now on cardene gtt prn 05/11/2021 Continue iv cefepime , add zyvox, sputum culture VENT [id number]%, 5 of PEEP Mild pulmonary edema with new small right pleural effusion and basilar opacities now on cardene gtt prn Patient seen and examined in the COVID-19 ICU remains mechanically ventilated ILDA on CKD - ATN 2/2 sepsis/ Hypotension,UOP good,on IV Lasix ; requiring dialysis, Sedated with propofol Dex and fentanyl Chart reviewed Discussed with RN He remains critically ill intubated/sedated cont cardene gtt not able to tolerate PS trial 05/06/21 Change central line and send cath tip for cultures. 05-09 C. difficile PCR JONES FISHMAN MD,ADELSO DASILVA MD, MD ORDERED: BCULT Procedure Result BLOOD CULTURE Preliminary NO GROWTH AFTER 2 DAYS BLOOD CULTURE Preliminary NO GROWTH AFTER 4 DAYS 36 min cc time 05/10/2021 VENT [id number]%, 5 of PEEP Mild pulmonary edema with new small right pleural effusion and basilar opacities now on cardene gtt prn Patient seen and examined in the [place] [address] ICU remains mechanically ventilated ILDA on CKD - ATN 2/2 sepsis/ Hypotension,UOP good,on IV Lasix ; requiring dialysis, Sedated with propofol Dex and fentanyl Chart reviewed Discussed with RN He remains critically ill intubated/sedated cont cardene gtt not able to tolerate PS trial 05/06/21 Change central line and send cath tip for cultures. 05-09 C. difficile PCR JONES FISHMAN MD,ADELSO DASILVA MD, MD ORDERED: BCULT Procedure Result BLOOD CULTURE Preliminary NO GROWTH AFTER 2 DAYS BLOOD CULTURE Preliminary NO GROWTH AFTER 4 DAYS 33 min cc time 05/09/2021 VENT [id number]%, 5 of PEEP Mild pulmonary edema with new small right pleural effusion and basilar opacities now on cardene gtt prn Patient seen and examined in the [place] [address] ICU remains mechanically ventilated ILDA on CKD - ATN 2/2 sepsis/ Hypotension,UOP good,on IV Lasix ; requiring dialysis, Sedated with propofol Dex and fentanyl Chart reviewed Discussed with RN He remains critically ill intubated/sedated cont cardene gtt not able to tolerate PS trial 05/06/21 Change central line and send cath tip for cultures. 05-09 C. difficile PCR JONES FISHMAN MD,ADELSO DASILVA MD, MD ORDERED: BCULT ----- ------- Procedure Result BLOOD CULTURE Preliminary NO GROWTH AFTER 2 DAYS BLOOD CULTURE Preliminary NO GROWTH AFTER 4 DAYS 37 min cc time 05/08/2021 Currently on 40%, 5 of PEEP now on cardene gtt Patient seen and examined in the [place] [address] ICU remains mechanically ventilated ILDA on CKD - ATN 2/2 sepsis/ Hypotension,UOP good,on IV Lasix ; requiring dialysis, AC/20/500/40 percent with 5 of PEEP Sedated with propofol Dex and fentanyl Chart reviewed Discussed with RN He remains critically ill intubated/sedated cont cardene gtt not able to tolerate PS trial 05/06/21 JONES FISHMAN MD,ADELSO DASILVA MD, MD ORDERED: BCULT Procedure Result BLOOD CULTURE Preliminary NO GROWTH AFTER 2 DAYS BLOOD CULTURE Preliminary NO GROWTH AFTER 4 DAYS 33 min cc time 05/07/2021 Patient seen and examined in the [place] [address] ICU He remains mechanically ventilated ILDA on CKD - ATN 2/2 sepsis/ Hypotension,UOP good,on IV Lasix ; requiring dialysis, AC/20/500/40 percent with 5 of PEEP Sedated with propofol Dex and fentanyl Chart reviewed Discussed with RN He remains critically ill intubated/sedated cont cardene gtt not able to tolerate PS trial 05/06/21 JONES FISHMAN MD,BRIAN AVILA,ADELSO POTTER ORDERED: BCULT Procedure Result BLOOD CULTURE Preliminary NO GROWTH AFTER 2 DAYS 36 min cc time 05/06/2021 Patient seen and examined in the [place] [address] ICU He remains mechanically ventilated AC/20/500/40 percent with 5 of PEEP Sedated with propofol Dex and fentanyl Chart reviewed Discussed with RN He remains critically ill 05/05/2020 Patient seen and examined in the [place] [address] ICU He remains on the vent AC/20/500/40 percent with 5 of PEEP Discussed with RN Chart reviewed Has SCDs in place Nieves to bedside drainage He remains critically ill 05/04/2021 Patient seen and examined in the [place] [address] ICU Still intubated Sedated with propofol and fentanyl AC/20/500/70 percent with 5 of PEEP On dialysis currently Has SCDs in Nieves to bedside drainage Discussed with RN Chart reviewed 05/03/2021 Patient seen and examined in the [place] [address] ICU He is still intubated AC/20/500/70 percent with 5 of PEEP Has SCDs in place Nieves to bedside drainage Sedated with fentanyl Versed and propofol Discussed are Chart reviewed Remains critically ill 05/02/2021 Patient seen and examined in the [place] [address] ICU He is sedated with propofol fentanyl and Versed Ventilator settings as follow AC/20/500/40 percent with 5 of PEEP Has Nieves to bedside drainage Chart reviewed Discussed with RN He remains critically ill 05/01/2021 Patient seen and examined in the [place] [address] ICU He is still intubated AC/20/500/40 percent with 5 of PEEP In A. fib Sedated with propofol fentanyl and Versed Has a heparin drip Missy with RN Chart reviewed He remains critically 04/30: Patient seen and examined in the [place] [address] ICU He remains on the vent AC/20/500/40 5% with 5 PEEP Currently on dialysis Has OG feeds running Has a Nieves to bedside drainage Sedated with propofol and fentanyl Reviewed chart Discussed with RN He remains critically ill Mr Cunha is a 75 yo male w/ PMHx CAD, HTN, Hyperlipidemia, subclavian steel syndrome, subclavian stenosis s/p left subclavian sent placement complicated by retroperitoneal hematoma s/p evacuation in 08/2015), asthma, BART, CKD, DM2 who presented from home with home health care noted that he was short of breath and valverde with O2 saturations less than 89% as low as 84% not improved with nasal cannulated oxygen placed on CPAP and brought to ED for further care. He was just discharged from the hospital a week ago on April 19, 2021 for abdominal pain and was going for further cardiac testing with outpatient stress testing scheduled on May 28, 2021. Had echocardiogram April 17, 2021 with normal-appearing EF with moderate concentric LVH no significant valvular abnormalities. WBC 20, Hb 10.7, platelets 268, NA 140, K3.8, BUN 21, CR 2.9, glucose 162, albumin 3, troponin I 1.372, NT proBNP 33,318. EKG appears sinus tachycardia rate of 105 bpm with multiple PACs small ST depressions in lead II and V5. TWI in V6. Chest radiograph with diffuse interstitial and alveolar opacities and ET tube 5 .8 cm above the leilani. Due to worsening respiratory status ED physician elected to intubate patient. Seen postintubation. Blood pressure little low after propofol bolus, but improved. Significant white frothy sputum per ET tube. Admitted to ICU for further care 04/29: Afebrile, remains on vent at FiO2 45%, PEEP 5. WBC 20.4. Hemodialysis per nephrology. We will continue treatment with empiric antibiotics, remdesivir, and steroids. Continue heparin infusion and supportive care. 04/28: Afebrile. FiO2 50%, PEEP 5. Nontunneled HD catheter placed yesterday due to worsening kidney function; eGFR 16 (CKD4). Chest x-ray showed unchanged interstitial opacities. Continue empiric antibiotics, steroids, and remdesivir. Continue heparin infusion, for new dx A. fib. 04/27: Afebrile. Vent with FiO2 50%, PEEP 5. Troponin 2.8 yesterday; probable type II, demand ischemia. New onset A. fib. Cont heparin gtt and prn digoxin, per cardiology. Contnue treatment with remdesivir, steroids, and prophylactic antibiotics. BG 323 this morning; will add basal insulin. 04/26: COVID-19 positive. Febrile overnight that was managed with cooling blankets. On vent with FiO2 50%, PEEP 5. Per cardiology, elevated troponins likely secondary to demand ischemia; continue heparin drip per cardiology. Continue treatment with remdesivir, steroids, and antibiotics. 04/25: On vent FiO2 50, PEEP 5. Febrile, T-max 103.3. Patient was initiated on cooling blankets. Procalcitonin 0.13. Continue coverage for hospital-acquired pneumonia with cefepime. MRSA PCR pending. Vitals/I&O Vitals/I&O: Vital Signs Date Time Temp Pulse Resp B/P (MAP) Pulse Ox O2 Delivery O2 Flow Rate FiO2 06/08/21 09:50 90 28 199/93 (128) 99 Ventilator 06/08/21 07:46 98.2 98.2 I & O 06/07/21 06/07/21 06/08/21 15:00 23:00 07:00 Intake Total 877 ml 951 ml Output Total 130 ml 155 ml 75 ml Balance -130 ml 722 ml 876 ml Physical Exam Physical Exam: GENERAL: Well-developed and well-nourished male, sedated , on vent HEENT: Normocephalic, atraumatic, redness and erythema of both eyes improved, NG tube present NECK: right dialysis catheter present clean,central line changed ( 05/11) Trach + HEART: S1, S2.no gallop LUNGS: Decreased breath sounds. ABDOMEN: Less distended, bowel sounds present GENITOURINARY: Nieves in place. EXTREMITIES: Edema present. DERMATOLOGIC: Warm, dry, no generalized rash. NEUROLOGIC: Opens eyes PICC line clean General: No acute distress, severe distress, Other (Alert and awake, trach collar site is intact without any infection) Heart: Regular rate, Normal S1, Normal S2 Lungs: Clear, Crackles Abdomen: Normal bowel sounds, Other (ND) Extremities: No clubbing, No cyanosis, Other (Lower extremity edema) Skin: No rashes, No breakdown, No significant lesion Labs Labs: Laboratory Tests Test 06/07/21 12:54 06/07/21 17:45 06/08/21 00:11 06/08/21 06:23 Glucose (Fingerstick) 183 mg/dL (70-99) 251 mg/dL (70-99) 220 mg/dL (70-99) 220 mg/dL (70-99) Assessment and Plan Assessmemt and Plan Problems Medical Problems: (1) Elevated troponin Status: Acute (2) Person under investigation for COVID-19 Status: Acute (3) Pulmonary edema Status: Acute Comment Review of Relevant I have reviewed the following items juanita (where applicable) has been applied. Medications: Current Medications Medications (Trade) Dose Ordered Sig/Jodie Route PRN Reason Start Time Stop Time Status Last Admin Dose Admin Sodium Chloride 90 meq/Potassium Chloride 30 meq/ Potassium Phosphate 13.6 mmol/Magnesium Sulfate 12 meq/ Multivitamins 5 ml/Zinc/Copper/ Manganese/ Selenium 1 ml/ Total Parenteral Nutrition/Amino Acids/Dextrose 1,200 ml @ 50 mls/hr TPN CONT IV 06/07/21 22:00 06/08/21 21:59 9/2/21 22:16 Justifications for Admission General Conditions Altered mental status?: Yes Justification of admission: Patient has tachycardia (> 100 beats per minute) or hypotension (SBP < 90 mm Hg) leading to inadequate systemic perfusion as indicated by severe/persistent altered mental status. Other Justification BRIAN MONTES MD Jun 08, 2021 10:54
[2021-06-08] MEDS: NYSTATIN TOPICAL POWDER 15GM BOTTLE. TP SCH ×2 (11:24→21:02)
[2021-06-08] MEDS: FLUCONAZOLE 200MG/100ML PREMIX 100 ML IV SCH (11:24)
[2021-06-08 11:51] LABS: HEMATOCRIT 26.3 % (39.0-53.0); HEMOGLOBIN 8.5 g/dL (13.0-17.5); RED BLOOD COUNT 3.11 x10^6/uL (4.30-5.70); RED CELL DISTRIBUTION WIDTH 17.6 % (11.5-14.5); WHITE BLOOD COUNT 15.6 x10^3/uL (4.0-11.0)
[2021-06-08 12:04] LABS: CALCIUM 8.2 mg/dL (8.5-10.1); CREATININE 2.2 mg/dL (0.7-1.3); GFR 35.6; POTASSIUM 3.9 mmol/L (3.5-5.1)
[2021-06-08 12:08] LABS: MAGNESIUM 2.1 mg/dL (1.8-2.4); PHOSPHORUS 2.2 mg/dL (2.6-4.7)
--- NOTE | 2021-06-08 12:30 | PDOC ---
G I PROGRESS NOTE Reason for Follow-up OP dysphagia/ileus Subjective Awakens. Trached, on ventilator. Objective On trickle feeds overnight with big residual; feeding held and not at 30 cc/hr. Physical Exam Lung clear anteriorly. RRR with extrasystoles/PAC's on monitor. Abdomen fairly soft. Maybe some bowel sounds. Review of Relevant I have reviewed the following items juanita (where applicable) has been applied. Labs Laboratory Tests Test 06/06/21 17:35 06/06/21 23:52 06/07/21 03:30 06/07/21 03:35 Glucose (Fingerstick) 179 mg/dL (70-99) 195 mg/dL (70-99) 184 mg/dL (70-99) White Blood Count 11.9 x10^3/uL (4.0-11.0) Red Blood Count 2.50 x10^6/uL (4.30-5.70) Hemoglobin 6.9 g/dL (13.0-17.5) Hematocrit 21.4 % (39.0-53.0) Mean Corpuscular Volume 86 fL (79-100) Mean Corpuscular Hemoglobin 28 pg (25-35) Mean Corpuscular Hemoglobin Concent 32 g/dL (31-37) Red Cell Distribution Width 17.6 % (11.5-14.5) Platelet Count 281 x10^3/uL (140-400) Neutrophils (%) (Auto) 52 % (31-73) Lymphocytes (%) (Auto) 24 % (24-48) Monocytes (%) (Auto) 16 % (0-9) Eosinophils (%) (Auto) 7 % (0-3) Basophils (%) (Auto) 1 % (0-3) Neutrophils # (Auto) 6.1 x10^3/uL (1.8-7.7) Lymphocytes # (Auto) 2.8 x10^3/uL (1.0-4.8) Monocytes # (Auto) 1.9 x10^3/uL (0.0-1.1) Eosinophils # (Auto) 0.9 x10^3/uL (0.0-0.7) Basophils # (Auto) 0.2 x10^3/uL (0.0-0.2) Sodium Level 139 mmol/L (136-145) Potassium Level 4.0 mmol/L (3.5-5.1) Chloride Level 106 mmol/L (98-107) Carbon Dioxide Level 27 mmol/L (21-32) Anion Gap 6 (6-14) Blood Urea Nitrogen 38 mg/dL (8-26) Creatinine 2.3 mg/dL (0.7-1.3) Estimated GFR (Cockcroft-Gault) 33.8 BUN/Creatinine Ratio 17 (6-20) Glucose Level 200 mg/dL (70-99) Calcium Level 8.1 mg/dL (8.5-10.1) Total Bilirubin 0.4 mg/dL (0.2-1.0) Aspartate Amino Transf (AST/SGOT) 14 U/L (15-37) Alanine Aminotransferase (ALT/SGPT) 7 U/L (16-63) Alkaline Phosphatase 61 U/L (46-116) Total Protein 5.2 g/dL (6.4-8.2) Albumin 1.6 g/dL (3.4-5.0) Albumin/Globulin Ratio 0.4 (1.0-1.7) Triglycerides Level 104 mg/dL (0-150) Test 06/07/21 12:54 06/07/21 17:45 06/08/21 00:11 06/08/21 05:00 Glucose (Fingerstick) 183 mg/dL (70-99) 251 mg/dL (70-99) 220 mg/dL (70-99) White Blood Count 15.6 x10^3/uL (4.0-11.0) Red Blood Count 3.11 x10^6/uL (4.30-5.70) Hemoglobin 8.5 g/dL (13.0-17.5) Hematocrit 26.3 % (39.0-53.0) Mean Corpuscular Volume 85 fL (79-100) Mean Corpuscular Hemoglobin 27 pg (25-35) Mean Corpuscular Hemoglobin Concent 32 g/dL (31-37) Red Cell Distribution Width 17.6 % (11.5-14.5) Platelet Count 283 x10^3/uL (140-400) Test 06/08/21 06:23 06/08/21 11:30 Glucose (Fingerstick) 220 mg/dL (70-99) Sodium Level 139 mmol/L (136-145) Potassium Level 3.9 mmol/L (3.5-5.1) Chloride Level 106 mmol/L (98-107) Carbon Dioxide Level 29 mmol/L (21-32) Anion Gap 4 (6-14) Blood Urea Nitrogen 31 mg/dL (8-26) Creatinine 2.2 mg/dL (0.7-1.3) Estimated GFR (Cockcroft-Gault) 35.6 Glucose Level 226 mg/dL (70-99) Calcium Level 8.2 mg/dL (8.5-10.1) Phosphorus Level 2.2 mg/dL (2.6-4.7) Magnesium Level 2.1 mg/dL (1.8-2.4) Laboratory Tests Test 06/07/21 12:54 06/07/21 17:45 06/08/21 00:11 06/08/21 05:00 Glucose (Fingerstick) 183 mg/dL (70-99) 251 mg/dL (70-99) 220 mg/dL (70-99) White Blood Count 15.6 x10^3/uL (4.0-11.0) Red Blood Count 3.11 x10^6/uL (4.30-5.70) Hemoglobin 8.5 g/dL (13.0-17.5) Hematocrit 26.3 % (39.0-53.0) Mean Corpuscular Volume 85 fL (79-100) Mean Corpuscular Hemoglobin 27 pg (25-35) Mean Corpuscular Hemoglobin Concent 32 g/dL (31-37) Red Cell Distribution Width 17.6 % (11.5-14.5) Platelet Count 283 x10^3/uL (140-400) Test 06/08/21 06:23 06/08/21 11:30 Glucose (Fingerstick) 220 mg/dL (70-99) Sodium Level 139 mmol/L (136-145) Potassium Level 3.9 mmol/L (3.5-5.1) Chloride Level 106 mmol/L (98-107) Carbon Dioxide Level 29 mmol/L (21-32) Anion Gap 4 (6-14) Blood Urea Nitrogen 31 mg/dL (8-26) Creatinine 2.2 mg/dL (0.7-1.3) Estimated GFR (Cockcroft-Gault) 35.6 Glucose Level 226 mg/dL (70-99) Calcium Level 8.2 mg/dL (8.5-10.1) Phosphorus Level 2.2 mg/dL (2.6-4.7) Magnesium Level 2.1 mg/dL (1.8-2.4) Microbiology 06/02/21 Gram Stain - Final, Complete 06/02/21 Aerobic Culture - Final, Complete 06/02/21 Blood Culture - Final, Complete NO GROWTH AFTER 5 DAYS 05/30/21 Gram Stain Evaluation - Final, Complete 05/30/21 Respiratory Culture - Final, Complete Vitals/I & O Vital Sign - Last 24 Hours 06/07/21 06/07/21 06/07/21 06/07/21 12:58 13:48 15:47 16:15 Resp 20 Pulse Ox 99 100 100 O2 Delivery Ventilator Ventilator Ventilator Mechanical Ventilator 06/07/21 06/07/21 06/07/21 06/07/21 16:21 17:11 17:39 17:43 Temp 98.1 98.1 Pulse 83 57 58 58 Resp 20 20 20 B/P (MAP) 109/48 (68) 149/86 (107) 149/66 (93) Pulse Ox 100 100 100 O2 Delivery Ventilator Ventilator Ventilator 06/07/21 06/07/21 06/07/21 06/07/21 19:00 20:00 20:00 20:09 Temp 99.3 99.3 Pulse 58 60 Resp 20 20 B/P (MAP) 146/65 (92) 143/63 (89) Pulse Ox 100 100 100 O2 Delivery Ventilator Ventilator Mechanical Ventilator Ventilator 06/07/21 06/07/21 06/07/21 06/07/21 21:00 22:00 23:00 23:43 Pulse 54 62 59 Resp 20 20 20 B/P (MAP) 140/65 (90) 138/61 (86) 144/62 (89) Pulse Ox 100 100 100 100 O2 Delivery Ventilator Ventilator Ventilator Ventilator 06/07/21 06/07/21 06/08/21 06/08/21 23:59 23:59 00:13 01:00 Temp 98.4 98.4 Pulse 50 50 54 Resp 20 20 B/P (MAP) 155/64 (94) 155/64 158/68 (98) Pulse Ox 100 100 O2 Delivery Mechanical Ventilator Ventilator Ventilator 06/08/21 06/08/21 06/08/21 06/08/21 01:10 01:14 01:40 02:00 Pulse 50 Resp 20 20 20 B/P (MAP) 147/61 (89) Pulse Ox 100 100 100 100 O2 Delivery Ventilator Ventilator Ventilator Ventilator 06/08/21 06/08/21 06/08/21 06/08/21 03:00 03:05 04:00 04:00 Temp 98.6 98.6 Pulse 50 54 Resp 20 20 B/P (MAP) 140/55 (83) 145/74 (97) Pulse Ox 100 100 100 O2 Delivery Ventilator Ventilator Mechanical Ventilator Ventilator 06/08/21 06/08/21 06/08/21 06/08/21 05:00 05:29 06:00 06:18 Pulse 76 61 55 Resp 20 20 B/P (MAP) 165/63 (97) 172/70 (104) 172/70 Pulse Ox 100 100 100 O2 Delivery Ventilator Ventilator Ventilator 06/08/21 06/08/21 06/08/21 06/08/21 07:46 07:47 07:50 08:16 Temp 98.2 98.2 Pulse 55 55 Resp 20 B/P (MAP) 180/73 (108) 180/73 Pulse Ox 100 100 O2 Delivery Ventilator Mechanical Ventilator Ventilator 06/08/21 06/08/21 06/08/21 06/08/21 09:50 11:00 11:25 11:27 Temp 98.2 98.2 Pulse 90 76 68 Resp 28 22 26 B/P (MAP) 199/93 (128) 153/62 (92) 134/54 Pulse Ox 99 100 O2 Delivery Ventilator Ventilator Ventilator 06/08/21 06/08/21 06/08/21 11:45 11:51 12:07 Pulse 67 Resp 20 B/P (MAP) /62 148/62 (90) Pulse Ox 100 O2 Delivery Mechanical Ventilator Intake and Output 06/07/21 06/07/21 06/08/21 15:00 23:00 07:00 Intake Total 877 ml 951 ml Output Total 130 ml 155 ml 75 ml Balance -130 ml 722 ml 876 ml Problem List Problems Medical Problems: (1) Elevated troponin Status: Acute (2) Person under investigation for COVID-19 Status: Acute (3) Pulmonary edema Status: Acute Assessment Ileus, unclearly resolved. Plan of Care Note Continue trial of tube feeding; not optimistic. Justicifation of Admission Dx: Justifications for Admission: Justification of Admission Dx: Yes Aspiration Pneumonia: Hemodynamic Instability CLINT PRICE MD Jun 08, 2021 12:30
[2021-06-08] MEDS ORDERED: POTASSIUM PHOSPHATE DIBASIC 13.6 MMOL in IV NS 250 ML IV ONE (14:00)
[2021-06-08] MEDS: TPN PER PHARMACY MC PRN (14:32)
--- NOTE | 2021-06-08 14:44 | NUR ---
Pharmacy TPN Dosing Note S: NILAM LAN is a 75 year old M Currently receiving Central Continuous TPN started 05/22/21 B:Pertinent PMH: ILEUS Height: 6 feet, 2 inches Weight: 138.2 kg Current diet: NPO LABS: Sodium: 139 Potassium: 3.9 Chloride: 106 Calcium: 8.2 Corrected Calcium: 10.12 Magnesium: 2.1 CO2: 29 SCr: 2.2 Glucose: 220-251 Albumin: 1.6 AST: 27 ALT: 19 TPN FORMULA: TPN TYPE: Central Continuous AMINO ACIDS: 110 gm DEXTROSE: 295 gm LIPIDS: 40 gm SODIUM CHLORIDE: 90 mEq POTASSIUM CHLORIDE: 30 mEq POTASSIUM PHOSPHATE: 13.6 mmol MAGNESIUM: 12 mEq MULTIPLE VITAMIN: 5 ml TRACE ELEMENTS: 1 ml(s) TPN PLAN: Macros adjusted per dietary (patient off propofol). 1x 13.6mmol Kphos IVPB ordered for today. R: Change TPN per plan and ordered formula Will monitor electrolytes, glucose, and tolerance to TPN. Jaqueline Watson [facility], 06/08/21 [id number]
--- NOTE | 2021-06-08 16:41 | PDOC ---
Infectious Disease Note Subjective Subjective Pt remains vent dependent No nausea vomiting diarrhea Discussed with nursing staff ROS ROS no n/v/d/ Vital Sign Vital Signs Vital Signs Date Time Temp Pulse Resp B/P (MAP) Pulse Ox O2 Delivery O2 Flow Rate FiO2 06/08/21 16:14 Mechanical Ventilator 06/08/21 16:14 100 06/08/21 15:23 97.8 86 18 154/73 (100) 97.8 Physical Exam PHYSICAL EXAM GENERAL: Well-developed and well-nourished male, sedated , on vent HEENT: Normocephalic, atraumatic, redness and erythema of both eyes improved, NG tube present NECK: right dialysis catheter present clean,central line changed ( 05/11) Trach + HEART: S1, S2.no gallop LUNGS: Decreased breath sounds. ABDOMEN: Less distended, bowel sounds present GENITOURINARY: Nieves in place. EXTREMITIES: Edema present. DERMATOLOGIC: Warm, dry, no generalized rash. NEUROLOGIC: Opens eyes PICC line clean Labs Lab Laboratory Tests Test 06/07/21 17:45 06/08/21 00:11 06/08/21 05:00 06/08/21 06:23 Glucose (Fingerstick) 251 mg/dL (70-99) 220 mg/dL (70-99) 220 mg/dL (70-99) White Blood Count 15.6 x10^3/uL (4.0-11.0) Red Blood Count 3.11 x10^6/uL (4.30-5.70) Hemoglobin 8.5 g/dL (13.0-17.5) Hematocrit 26.3 % (39.0-53.0) Mean Corpuscular Volume 85 fL (79-100) Mean Corpuscular Hemoglobin 27 pg (25-35) Mean Corpuscular Hemoglobin Concent 32 g/dL (31-37) Red Cell Distribution Width 17.6 % (11.5-14.5) Platelet Count 283 x10^3/uL (140-400) Test 06/08/21 11:30 Sodium Level 139 mmol/L (136-145) Potassium Level 3.9 mmol/L (3.5-5.1) Chloride Level 106 mmol/L (98-107) Carbon Dioxide Level 29 mmol/L (21-32) Anion Gap 4 (6-14) Blood Urea Nitrogen 31 mg/dL (8-26) Creatinine 2.2 mg/dL (0.7-1.3) Estimated GFR (Cockcroft-Gault) 35.6 Glucose Level 226 mg/dL (70-99) Calcium Level 8.2 mg/dL (8.5-10.1) Phosphorus Level 2.2 mg/dL (2.6-4.7) Magnesium Level 2.1 mg/dL (1.8-2.4) Micro BLOOD CULTURE LC Final Final FINAL ID= [MANDI PARAPSILOSIS] NO FURTHER WORKUP MANDI PARAPSILOSIS Unless otherwise specified, Testing Performed by: [facility] [address] [place] [address] For Inquires, the Physician may contact the Microbiology department at [phone] Objective Assessment Fungemia May 30, 2021, C parapsilosis, 06/02 neg RT IJ central line removed cath tip sent for cult 1. Febrile illness resolved 2. Leukocytosis, was on steroids,ileus could contribute,improving 3. COVID-19 pneumonia. 4. Acute hypoxic respiratory failure status post intubation.Now S/P Trach 05/15 Pleural effusion 5. Congestive heart failure, acute on chronic. 6. Acute kidney injury on chronic kidney disease on hemodialysis. 7. Diabetes mellitus 2. 8. Atrial fibrillation. 9. Anemia. 10. Protein-calorie malnutrition. 11. Hypertention 12.Hyponatremia 13. Ileus, Bowel obstruction Peg TF on hold, OG to LIS 14.on PPN 15.Mild to Moderate Pleural effusion 16.Lt eye conjunctivitis resolved Plan Plan of Care diflucan Monitor labs and cultures lines removed f/u repeat bc from 06/02 neg Nieves changed 05/30 C. difficile PCR negative Remains critically ill Continue supportive care Prognosis poor Patient's family is deciding whether to go ahead with permacath or not Discussed with nursing staff JAD RIVERO MD Jun 08, 2021 16:41
[2021-06-08] MEDS: MONTELUKAST SODIUM 10 MG TABLET. PO SCH (21:02)
[2021-06-08] MEDS: ATORVASTATIN CALCIUM 40 MG TABLET. PO SCH (21:02)
--- NOTE | 2021-06-08 21:15 | NUR ---
Patient vomited large amount of tube feeding, unable to determine amount. Bowel sounds are active but abdomen remains distended. Tube feeding stopped and NG attached to LIS with immediate return of gastric contents but no change in abdominal size. Will notify day shift RN to discuss with GI restarting Tube Feeding.
[2021-06-08] MEDS ORDERED: AMINO ACID IV SCH (22:00)
[2021-06-08] MEDS ORDERED: TOTAL PARENTERAL NUTRITION IV SCH (22:00)
[2021-06-08] MEDS ORDERED: DEXTROSE 70% IV SCH (22:00)
[2021-06-08] MEDS ORDERED: [UNRECOGNIZED DRUG - OTHER] IV SCH (22:00)
[2021-06-08] MEDS: hydrALAZINE 20 MG/ML VIAL. IVP PRN (22:11)
[2021-06-08] MEDS: ACETAMINOPHEN 650 MG SUPP.RECT. PR PRN (22:23)
[2021-06-08] MEDS: PROPOFOL 100 ML IV PRN (22:30)
[2021-06-09] VITALS (24 sets, daily range): BP systolic 133–191; BP diastolic 54–98
[2021-06-09] MEDS: INSULIN LISPRO 300 UNITS/3 ML VIAL. SQ SCH ×6 (00:06→18:09)
[2021-06-09] MEDS: DEXMEDETOMIDINE 400 MCG in IV NORMAL SALINE 100ML 96 ML IV PRN ×5 (02:05→23:02)
[2021-06-09] MEDS: METOPROLOL IV PUSH 5 MG/5 ML VIAL. IVP SCH ×3 (06:10→18:40)
[2021-06-09 06:42] LABS: CALCIUM 8.4 mg/dL (8.5-10.1); CREATININE 2.6 mg/dL (0.7-1.3); GFR 29.3; POTASSIUM 4.2 mmol/L (3.5-5.1)
[2021-06-09 06:45] LABS: MAGNESIUM 2.3 mg/dL (1.8-2.4); PHOSPHORUS 2.9 mg/dL (2.6-4.7)
[2021-06-09] MEDS ORDERED: IV NORMAL SALINE 1000ML BAG 1,000 ML IV PRN ×2 (07:30)
[2021-06-09] MEDS ORDERED: DIALYSIS PATIENT. MC PRN (07:30)
--- NOTE | 2021-06-09 07:35 | PDOC ---
PULMONARY PROGRESS NOTES DATE: 06/09/21 TIME: 07:35 Subjective No overnight events Yesterday tolerated pressure support for a short period of time He is awake alert following commands Continues to have an ileus Vitals Vital Signs Date Time Temp Pulse Resp B/P (MAP) Pulse Ox O2 Delivery O2 Flow Rate FiO2 06/09/21 07:00 49 20 153/67 (95) 100 Ventilator 06/09/21 04:00 98.2 98.2 Comments Tracheostomy ros unable to obtain sedated on vent General: No acute distress Lungs: Clear Cardiovascular: S1, S2 Abdomen: Soft, Other (Nontender) Neuro Exam: Alert Extremities: No Edema Skin: Warm Labs Laboratory Tests Test 06/07/21 12:54 06/07/21 17:45 06/08/21 00:11 06/08/21 05:00 Glucose (Fingerstick) 183 mg/dL (70-99) 251 mg/dL (70-99) 220 mg/dL (70-99) White Blood Count 15.6 x10^3/uL (4.0-11.0) Red Blood Count 3.11 x10^6/uL (4.30-5.70) Hemoglobin 8.5 g/dL (13.0-17.5) Hematocrit 26.3 % (39.0-53.0) Mean Corpuscular Volume 85 fL (79-100) Mean Corpuscular Hemoglobin 27 pg (25-35) Mean Corpuscular Hemoglobin Concent 32 g/dL (31-37) Red Cell Distribution Width 17.6 % (11.5-14.5) Platelet Count 283 x10^3/uL (140-400) Test 06/08/21 06:23 06/08/21 11:30 06/08/21 18:15 06/09/21 00:05 Glucose (Fingerstick) 220 mg/dL (70-99) 182 mg/dL (70-99) 246 mg/dL (70-99) Sodium Level 139 mmol/L (136-145) Potassium Level 3.9 mmol/L (3.5-5.1) Chloride Level 106 mmol/L (98-107) Carbon Dioxide Level 29 mmol/L (21-32) Anion Gap 4 (6-14) Blood Urea Nitrogen 31 mg/dL (8-26) Creatinine 2.2 mg/dL (0.7-1.3) Estimated GFR (Cockcroft-Gault) 35.6 Glucose Level 226 mg/dL (70-99) Calcium Level 8.2 mg/dL (8.5-10.1) Phosphorus Level 2.2 mg/dL (2.6-4.7) Magnesium Level 2.1 mg/dL (1.8-2.4) Test 06/09/21 06:05 06/09/21 06:07 Sodium Level 138 mmol/L (136-145) Potassium Level 4.2 mmol/L (3.5-5.1) Chloride Level 106 mmol/L (98-107) Carbon Dioxide Level 28 mmol/L (21-32) Anion Gap 4 (6-14) Blood Urea Nitrogen 42 mg/dL (8-26) Creatinine 2.6 mg/dL (0.7-1.3) Estimated GFR (Cockcroft-Gault) 29.3 Glucose Level 298 mg/dL (70-99) Calcium Level 8.4 mg/dL (8.5-10.1) Phosphorus Level 2.9 mg/dL (2.6-4.7) Magnesium Level 2.3 mg/dL (1.8-2.4) Glucose (Fingerstick) 261 mg/dL (70-99) Laboratory Tests Test 06/08/21 11:30 06/08/21 18:15 06/09/21 00:05 06/09/21 06:05 Sodium Level 139 mmol/L (136-145) 138 mmol/L (136-145) Potassium Level 3.9 mmol/L (3.5-5.1) 4.2 mmol/L (3.5-5.1) Chloride Level 106 mmol/L (98-107) 106 mmol/L (98-107) Carbon Dioxide Level 29 mmol/L (21-32) 28 mmol/L (21-32) Anion Gap 4 (6-14) 4 (6-14) Blood Urea Nitrogen 31 mg/dL (8-26) 42 mg/dL (8-26) Creatinine 2.2 mg/dL (0.7-1.3) 2.6 mg/dL (0.7-1.3) Estimated GFR (Cockcroft-Gault) 35.6 29.3 Glucose Level 226 mg/dL (70-99) 298 mg/dL (70-99) Calcium Level 8.2 mg/dL (8.5-10.1) 8.4 mg/dL (8.5-10.1) Phosphorus Level 2.2 mg/dL (2.6-4.7) 2.9 mg/dL (2.6-4.7) Magnesium Level 2.1 mg/dL (1.8-2.4) 2.3 mg/dL (1.8-2.4) Glucose (Fingerstick) 182 mg/dL (70-99) 246 mg/dL (70-99) Test 06/09/21 06:07 Glucose (Fingerstick) 261 mg/dL (70-99) Medications Active Scripts Medications Dose Route/Sig Max Daily Dose Days Date Category Glyburide 2.5 Mg Tablet 1 Tab PO DAILY 04/19/21 Rx Polyethylene Glycol 3350 17 Gm Powd.pack 17 Gm PO DAILY 04/19/21 Rx Dok (Docusate Sodium) 100 Mg Capsule 100 Mg PO PRN DAILY PRN 04/19/21 Rx Bisacodyl 5 Mg Tablet.dr 5 Mg PO PRN DAILY PRN 04/19/21 Rx Acetaminophen 325 Mg Tablet 650 Mg PO PRN Q4HRS PRN 04/19/21 Rx Aspirin Ec (Aspirin) 81 Mg Tablet.dr 81 Mg PO [id number] 04/19/21 Rx Hydralazine Hcl 25 Mg Tablet 25 Mg PO QID 04/19/21 Rx Fenofibrate 54 Mg Tablet 1 Tab PO DAILY 04/17/21 Reported Potassium Chloride (Potassium Chloride) 20 Meq Tablet.er 20 Meq PO DAILY 04/17/21 Reported Coreg (Carvedilol) 12.5 Mg Tablet 37.5 Mg PO BIDWMEALS 04/17/21 Reported Rosuvastatin Calcium 40 Mg Tablet 40 Mg PO QHS 04/17/21 Reported Gabapentin (Gabapentin) 100 Mg Capsule 200 Mg PO BID 04/17/21 Reported Montelukast Sodium Tablet (Montelukast Sodium) 10 Mg Tablet 10 Mg PO HS 04/17/21 Reported Protonix (Pantoprazole Sodium) 20 Mg Tablet. 2 Tab PO DAILY 04/17/21 Reported Amlodipine Besylate 5 Mg Tablet 5 Mg PO DAILY 04/17/21 Reported Furosemide 40 Mg Tablet 1 Tab PO DAILY 04/17/21 Reported Proair Hfa Inhaler (Albuterol Sulfate) 8.5 Gm Hfa.aer.ad 2 Puff IH PRN Q4-6HRS PRN 21 04/16/21 Reported Advair 100-50 Diskus (Fluticasone/Salmeterol) 1 Each Disk.w.dev 1 Puff IH BID 04/16/21 Reported Comments Chest x-ray 06/04/2021 reviewed. Bilateral interstitial infiltrates and a small right lower lobe effusion consistent with CHF. Impression . IMPRESSION: 1. Acute hypoxic respiratory failure, multifactorial/COVID-19 viral pneumonia/ARDS, ongoing, intubated 04/25/2021, now status post tracheostomy 05/15/[address] chest with bilateral diffuse interstitial infiltrates without any significant pleural effusion 3. Leukocytosis, sepsis--improved 4. Non-ST segment elevation MD 5. History of tobacco use, suspect COPD, unknown FEV1 6. Chronic kidney disease.== HD as needed per renal 7. Metabolic acidosis multifactorial, improved 8. Abnormal chest x-ray, compatible with ARDS CHF 9. Hypoglycemia, continue to monitor--- resolved 10. Hypotension, suspect volume deficit,/possible sepsis--- resolved 11. Fever--improved 12. Anemia--improved 13. Atrial fibrillation with rapid ventricular response, currently rate controlled 14. Ileus Plan . Updated 06/09 Discussed with RN and RT, continue pressure support as tolerated Discussed with RN will initiate tube feeding 10 cc/h 3 hours on 3 hours off DVT GI prophylaxis Continue follow GI input On Diflucan Follow-up on cultures C. difficile PCR negative Updated 06/08 Discussed with RN Daily pressure support trials Defer PEG to GI service Continue current nutritional support Antibiotics per ID DVT GI prophylaxis Titrate sedation down updated 06/07/2021 Continue daily pressure support Will initiate trach shield trial again as tolerated. Follow infectious disease recommendations. Currently on fluconazole. Continue Precedex as needed It has been difficult to wean the patient due to nonpulmonary issues such as arrhythmias, worsening hypertension and tachycardia and current ileus. Has done better in the last 3 to 4 days Monitor HGB Follow GI recs-- ileus, PEG tube on hold, Follow nephrology recs-- hemodialysis per nephro Follow infectious disease recommendations for ABX Continue TPN for nutritional support DVT/GI PPX: sq heparin-- on hold D/W RN and RT Possible PEG tube placement next week Pt. is DNR ADELSO AVILA MD Jun 09, 2021 07:35
--- NOTE | 2021-06-09 08:24 | PDOC ---
[employer] PROGRESS NOTE Date of Service DOS: DATE: 06/09/21 TIME: 08:23 Chief Complaint Chief Complaint Respiratory failure requiring intubation COVID-19 Acute NH A. fib SIRS Hypertension with hypertensive urgency Hyperlipidemia CKD Diabetes History of bilateral subclavian stenosis History of marijuana use Severe protein calorie malnutrition Trach placed on May 15 GI consulted for PEG evaluation --> patient with a lot of vomiting yesterday thus current NG tube to low intermittent suction Anemia secondary to acute blood loss, possible multiple lab draws and related to advanced CKD Positive yeast on 1 out of 4 bottles on blood cultures FEN - TPN PPX - PPI CODE - DNR/DNI Dispo - ICU critically ill History of Present Illness History of Present Illness 06/09: Vomited large amount of tube feeding overnight and NG attached to low suction. Remains in A. fib. Minimal sedation with propofol and Precedex. Tolerated pressure support back on AC FiO2 40% PEEP 5 getting dialysis currently. CC time 31 min spent in reviewing chart, labs, and images. Discussed with RN and SW. 06/08: Afebrile. On minimal sedation propofol Precedex tolerated pressure support yesterday back on AC PEEP 5 FiO2 40% use more alert trying to pull out his tracheostomy successfully disconnected himself from the vent. Not easily redirectable. Admits for safety. In A. fib. Labs pending 06/07: Afebrile. On minimal sedation propofol and Precedex with for trach PEEP 5 FiO2 40%. He is to be in A. fib. Hb 6.9. Will transfuse with dialysis today. Did have stool smear overnight 06/06: Afebrile. On minimal sedation with propofol and Precedex and vent support via trach PEEP 5 FiO2 40%. Still in A. fib on telemetry. Catheter tip no growth to date sputum with Mariya. Repeat blood cultures no growth to date 06/05: Afebrile. Still requiring minimal sedation on propofol and Precedex. Requiring vent support via trach PEEP five FiO2 40%. KUB with less gaseous distention. No BM but bowel sounds are audible. 06/04: No overnight events afebrile. Sedated on propofol and Precedex. On vent with tracheostomy PEEP 5 FiO2 40%. Being treated for fungemia and receiving TPN. Left IJ CVC functioning well. HD catheter right. 06/03: No acute events overnight. Left IJ placed by IR. Defer to ID for antibiotic management for cultures of the catheter tip and yeast. 06/02: No acute events overnight. Patient saturating 100% on trach collar. Tmax 100.3. Yeast 1 of 4 bottles on blood cultures. Plan to remove central line and dialysis catheter. Family consideration for tunneled catheterization possibly hold. Micafungin was started per ID. 06/01: No acute events overnight. Patient saturating well on trach collar. Patient seen and examined bedside and on HD. Hemoglobin trended down from 8.4- 7.3. Afebrile in the last 24 hours. Patient's chart, labs, images were reviewed and discussed with RN 05/31: No acute events overnight. Patient saturating 100% on trach collar. Hemoglobin improved after 1 unit PRBC transfusion to 8.4. Patient is currently undergoing dialysis and his labs have been stable. Patient's chart, labs, images were reviewed and discussed with RN 05/30: No acute events overnight. Patient doing well on trach collar. Hemoglobin decreased down to 6.7 pending 1 unit PRBC transfusion. Restarted on linezolid and Flagyl and cefepime. Pending PICC placement and central line IJ removal. 05/29: No acute events or night. Patient tolerating trach collar humidified. Saturating at 99%. Pending PICC line placement and IJ central line removal. Per ID. Possibly in not needing HD. Making urine adequately with Lasix as needed. 05/28: No acute events overnight. Patient doing well on trach with settings of 40% FiO2 and PEEP of 8. Pending PEG placement after ileus is resolved will defer this to GI for timing of PEG placement.. Also pending tunneled catheter placement for dialysis. 05/27: Afebrile. On vent with FiO2 40%, PEEP 5. Hemoglobin remains stable at 7.2 today; continue to trend. WBC 13.4. Kidney function appears to be stabilized. LTAC transfer is pending PEG tube placement. Off meropenem; will continue to monitor. Kidney function appears to be stable. 05/26: Afebrile. On vent with FiO2 40%, PEEP 5. Hemoglobin 7.3 yesterday, and hemoglobin 7.2 today; continue to trend. Leukocytosis slightly improved, WBC 12.9 today. Has been accepted at [facility]; transfer pending, but will need PEG tube placement prior. 05/25: Afebrile. On vent with FiO2 40%, PEEP 5. Hemoglobin 8.6 yesterday, hemoglobin 7.3 today. Reportedly had HD yesterday. Continue IV antibiotics, per ID; WBC possibly reactive to ileus. Has been accepted at [facility]; transfer pending, but will need PEG tube placement prior. 05/24: No acute events overnight. Afebrile. NG tube output has decreased. Kidney function appears stable. Continue IV antibiotics, per ID. Patient has been accepted to [facility], pending insurance authorization. 05/23: Afebrile. On vent with FiO2 40%, PEEP 5. NG tube for 635 mL out overnight. Continue NG tube to suction. HD per nephrology. Continue IV an tibiotics, per ID. Critical care time 30 minutes spent reviewing charts, reviewing labs, reviewing imaging, discussion with RN. 05/22: Afebrile. On vent with FiO2 40%, PEEP 5. Excessive NG output. Continue NG tube to suction for now; PEG on hold for now. Continue hemodialysis, per nephrology. Continue IV antibiotics, per ID. Social work helping with discharge planning to LTACH likely in the near future after PEG 05/21: Afebrile, no acute events overnight. Remains on vent, FiO2 40%, PEEP 5. S/P tracheostomy on 05/15/2021. KUB on 05/19/2021 consistent with ileus. Per GI, continue NG tube to suction and parenteral nutrition for now. Continue IV antibiotics, per ID. Continue hemodialysis 05/20: Patient seen and examined at bedside. Again had multiple bouts of vomiting yesterday. GI continuing to follow for PEG evaluation although on hold right now due to persistent vomiting. Leukocytosis does persist but patient afebrile. Plan of care discussed with bedside RN 05/19: Patient seen and examined at bedside. Apparently had a fair bit of vomiting overnight. GI following for PEG evaluation. Otherwise patient remained stable. Plan of care discussed with bedside nurse. 05/18: Patient seen and examined at bedside. Attempting to increase tube feeds, GI consulted for PEG evaluation. Otherwise no major clinical changes. Continue to wean sedation. Plan of care discussed with bedside nurse. 05/17: Patient seen and examined at bedside. Attempting to wean sedation. Patient with some diarrhea. Per infectious disease will give erythromycin eye ointment for eye lesions. Nephro and pulm also following. Continue sedation weaning, plan of care discussed with bedside nurse. 05/16: Patient seen and examined at bedside. Underwent tracheostomy yesterday today tolerated well. When seen this morning patient is still notably sedated respiratory status is stable. Continue antibiotics and supportive measures. 05/15: Patient seen and examined at bedside. Remains intubated and sedated planning for tracheostomy today. Continue current respiratory support; continue antibiotics, continue sedation. 05/14: Patient seen and examined at bedside. Remains intubated and sedated planning for tracheostomy tomorrow. Continue current respiratory support; continue antibiotics, continue sedation. Follow recommendations of pulmonary, renal, and infectious disease 05/13: Did not tolerate sedation vacation 05/11/2021, profoundly hypertensive. ABG/CXR--changes as needed. Continue iv cefepime , add zyvox, sputum culture. VENT [id number]%, 5 of PEEP. Mild pulmonary edema with new small right pleural effusion and basilar opacities. now on cardene gtt prn 05/12: Continue iv cefepime , add zyvox, sputum culture. VENT %, 5 of PEEP. now on cardene gtt prn 05/11/2021 Continue iv cefepime , add zyvox, sputum culture VENT [id number]%, 5 of PEEP Mild pulmonary edema with new small right pleural effusion and basilar opacities now on cardene gtt prn Patient seen and examined in the [facility] ICU remains mechanically ventilated ILDA on CKD - ATN 2/2 sepsis/ Hypotension,UOP good,on IV Lasix ; requiring dialysis, Sedated with propofol Dex and fentanyl Chart reviewed Discussed with RN He remains critically ill intubated/sedated cont cardene gtt not able to tolerate PS trial 05/06/21 Change central line and send cath tip for cultures. 05-09 C. difficile PCR JONES FISHMAN MD,BRIAN AVILA,ADELSO POTTER ORDERED: BCULT Procedure Result BLOOD CULTURE Preliminary NO GROWTH AFTER 2 DAYS BLOOD CULTURE Preliminary NO GROWTH AFTER 4 DAYS 36 min cc time 05/10/2021 VENT [id number]%, 5 of PEEP Mild pulmonary edema with new small right pleural effusion and basilar opacities now on cardene gtt prn Patient seen and examined in the [place] [address] ICU remains mechanically ventilated ILDA on CKD - ATN 2/2 sepsis/ Hypotension,UOP good,on IV Lasix ; requiring dialysis, Sedated with propofol Dex and fentanyl Chart reviewed Discussed with RN He remains critically ill intubated/sedated cont cardene gtt not able to tolerate PS trial 05/06/21 Change central line and send cath tip for cultures. 05-09 C. difficile PCR JONES FISHMAN MD,ADELSO DASILVA MD, MD ORDERED: BCULT Procedure Result BLOOD CULTURE Preliminary NO GROWTH AFTER 2 DAYS BLOOD CULTURE Preliminary NO GROWTH AFTER 4 DAYS 33 min cc time 05/09/2021 VENT [id number]%, 5 of PEEP Mild pulmonary edema with new small right pleural effusion and basilar opacities now on cardene gtt prn Patient seen and examined in the [facility] ICU remains mechanically ventilated ILDA on CKD - ATN 2/2 sepsis/ Hypotension,UOP good,on IV Lasix ; requiring dialysis, Sedated with propofol Dex and fentanyl Chart reviewed Discussed with RN He remains critically ill intubated/sedated cont cardene gtt not able to tolerate PS trial 05/06/21 Change central line and send cath tip for cultures. 05-09 C. difficile PCR JONES FISHMAN MD,ADELSO DASILVA MD, MD ORDERED: BCULT Procedure Result BLOOD CULTURE Preliminary NO GROWTH AFTER 2 DAYS BLOOD CULTURE Preliminary NO GROWTH AFTER 4 DAYS 37 min cc time 05/08/2021 Currently on 40%, 5 of PEEP now on cardene gtt Patient seen and examined in the [facility] ICU remains mechanically ventilated ILDA on CKD - ATN 2/2 sepsis/ Hypotension,UOP good,on IV Lasix ; requiring dialysis, AC/20/500/40 percent with 5 of PEEP Sedated with propofol Dex and fentanyl Chart reviewed Discussed with RN He remains critically ill intubated/sedated cont cardene gtt not able to tolerate PS trial 05/06/21 JONES FISHMAN MD,ADELSO DASILVA MD, MD ORDERED: BCULT Procedure Result BLOOD CULTURE Preliminary NO GROWTH AFTER 2 DAYS BLOOD CULTURE Preliminary NO GROWTH AFTER 4 DAYS 33 min cc time 05/07/2021 Patient seen and examined in the [place] [address] ICU He remains mechanically ventilated ILDA on CKD - ATN 2/2 sepsis/ Hypotension,UOP good,on IV Lasix ; requiring dialysis, AC/20/500/40 percent with 5 of PEEP Sedated with propofol Dex and fentanyl Chart reviewed Discussed with RN He remains critically ill intubated/sedated cont cardene gtt not able to tolerate PS trial 05/06/21 JONES FISHMAN MD,ADELSO DASILVA MD, MD ORDERED: BCULT Procedure Result BLOOD CULTURE Preliminary NO GROWTH AFTER 2 DAYS 36 min cc time 05/06/2021 Patient seen and examined in the [place] [address] ICU He remains mechanically ventilated AC/20/500/40 percent with 5 of PEEP Sedated with propofol Dex and fentanyl Chart reviewed Discussed with RN He remains critically ill 05/05/2020 Patient seen and examined in the [place] [address] ICU He remains on the vent AC/20/500/40 percent with 5 of PEEP Discussed with RN Chart reviewed Has SCDs in place Nieves to bedside drainage He remains critically ill 05/04/2021 Patient seen and examined in the [place] [address] ICU Still intubated Sedated with propofol and fentanyl AC/20/500/70 percent with 5 of PEEP On dialysis currently Has SCDs in Nieves to bedside drainage Discussed with RN Chart reviewed 05/03/2021 Patient seen and examined in the [place] [address] ICU He is still intubated AC/20/500/70 percent with 5 of PEEP Has SCDs in place Nieves to bedside drainage Sedated with fentanyl Versed and propofol Discussed are Chart reviewed Remains critically ill 05/02/2021 Patient seen and examined in the [place] [address] ICU He is sedated with propofol fentanyl and Versed Ventilator settings as follow AC/20/500/40 percent with 5 of PEEP Has Nieves to bedside drainage Chart reviewed Discussed with RN He remains critically ill 05/01/2021 Patient seen and examined in the [place] [address] ICU He is still intubated AC/20/500/40 percent with 5 of PEEP In A. fib Sedated with propofol fentanyl and Versed Has a heparin drip Missy with RN Chart reviewed He remains critically 04/30: Patient seen and examined in the [place] [address] ICU He remains on the vent AC/20/500/40 5% with 5 PEEP Currently on dialysis Has OG feeds running Has a Nieves to bedside drainage Sedated with propofol and fentanyl Reviewed chart Discussed with RN He remains critically ill Mr Cunha is a 75 yo male w/ PMHx CAD, HTN, Hyperlipidemia, subclavian steel syndrome, subclavian stenosis s/p left subclavian sent placement complicated by retroperitoneal hematoma s/p evacuation in 08/2015), asthma, BART, CKD, DM2 who presented from home with home health care noted that he was short of breath and valverde with O2 saturations less than 89% as low as 84% not improved with nasal cannulated oxygen placed on CPAP and brought to ED for further care. He was just discharged from the hospital a week ago on April 19, 2021 for abdominal pain and was going for further cardiac testing with outpatient stress testing scheduled on May 28, 2021. Had echocardiogram April 17, 2021 with normal-appearing EF with moderate concentric LVH no significant valvular abnormalities. WBC 20, Hb 10.7, platelets 268, NA 140, K3.8, BUN 21, CR 2.9, glucose 162, albumin 3, troponin I 1.372, NT proBNP 33,318. EKG appears sinus tachycardia rate of 105 bpm with multiple PACs small ST depressions in lead II and V5. TWI in V6. Chest radiograph with diffuse interstitial and alveolar opacities and ET tube 5.8 cm above the leilani. Due to worsening respiratory status ED physician elected to intubate patient. Seen postintubation. Blood pressure little low after propofol bolus, but improved. Significant white frothy sputum per ET tube. Admitted to ICU for further care 04/29: Afebrile, remains on vent at FiO2 45%, PEEP 5. WBC 20.4. Hemodialysis per nephrology. We will continue treatment with empiric antibiotics, remdesivir, and steroids. Continue heparin infusion and supportive care. 04/28: Afebrile. FiO2 50%, PEEP 5. Nontunneled HD catheter placed yesterday due to worsening kidney function; eGFR 16 (CKD4). Chest x-ray showed unchanged interstitial opacities. Continue empiric antibiotics, steroids, and remdesivir. Continue heparin infusion, for new dx A. fib. 04/27: Afebrile. Vent with FiO2 50%, PEEP 5. Troponin 2.8 yesterday; probable type II, demand ischemia. New onset A. fib. Cont heparin gtt and prn digoxin, per cardiology. Contnue treatment with remdesivir, steroids, and prophylactic antibiotics. BG 323 this morning; will add basal insulin. 04/26: COVID-19 positive. Febrile overnight that was managed with cooling blankets. On vent with FiO2 50%, PEEP 5. Per cardiology, elevated troponins likely secondary to demand ischemia; continue heparin drip per cardiology. Continue treatment with remdesivir, steroids, and antibiotics. 04/25: On vent FiO2 50, PEEP 5. Febrile, T-max 103.3. Patient was initiated on cooling blankets. Procalcitonin 0.13. Continue coverage for hospital-acquired pneumonia with cefepime. MRSA PCR pending. Vitals/I&O Vitals/I&O: Vital Signs Date Time Temp Pulse Resp B/P (MAP) Pulse Ox O2 Delivery O2 Flow Rate FiO2 06/09/21 07:00 49 20 153/67 (95) 100 Ventilator 06/09/21 04:00 98.2 98.2 I & O 06/08/21 06/08/21 06/09/21 14:59 22:59 06:59 Intake Total 20 ml 1934 ml 718 ml Output Total 265 ml 210 ml 350 ml Balance -245 ml 1724 ml 368 ml Physical Exam Physical Exam: GENERAL: Well-developed and well-nourished male, sedated , on vent HEENT: Normocephalic, atraumatic, redness and erythema of both eyes improved, NG tube present NECK: right dialysis catheter present clean,central line changed ( 05/11) Trach + HEART: S1, S2.no gallop LUNGS: Decreased breath sounds. ABDOMEN: Less distended, bowel sounds present GENITOURINARY: Nieves in place. EXTREMITIES: Edema present. DERMATOLOGIC: Warm, dry, no generalized rash. NEUROLOGIC: Opens eyes PICC line clean General: No acute distress, severe distress, Other (Alert and awake, trach collar site is intact without any infection) Heart: Regular rate, Normal S1, Normal S2 Lungs: Clear Abdomen: Normal bowel sounds, Other (ND) Extremities: No clubbing, No cyanosis, Other (Lower extremity edema) Skin: No rashes, No breakdown, No significant lesion Labs Labs: Laboratory Tests Test 06/08/21 11:30 06/08/21 18:15 06/09/21 00:05 06/09/21 06:05 Sodium Level 139 mmol/L (136-145) 138 mmol/L (136-145) Potassium Level 3.9 mmol/L (3.5-5.1) 4.2 mmol/L (3.5-5.1) Chloride Level 106 mmol/L (98-107) 106 mmol/L (98-107) Carbon Dioxide Level 29 mmol/L (21-32) 28 mmol/L (21-32) Anion Gap 4 (6-14) 4 (6-14) Blood Urea Nitrogen 31 mg/dL (8-26) 42 mg/dL (8-26) Creatinine 2.2 mg/dL (0.7-1.3) 2.6 mg/dL (0.7-1.3) Estimated GFR (Cockcroft-Gault) 35.6 29.3 Glucose Level 226 mg/dL (70-99) 298 mg/dL (70-99) Calcium Level 8.2 mg/dL (8.5-10.1) 8.4 mg/dL (8.5-10.1) Phosphorus Level 2.2 mg/dL (2.6-4.7) 2.9 mg/dL (2.6-4.7) Magnesium Level 2.1 mg/dL (1.8-2.4) 2.3 mg/dL (1.8-2.4) Glucose (Fingerstick) 182 mg/dL (70-99) 246 mg/dL (70-99) Test 06/09/21 06:07 Glucose (Fingerstick) 261 mg/dL (70-99) Assessment and Plan Assessmemt and Plan Problems Medical Problems: (1) Elevated troponin Status: Acute (2) Person under investigation for COVID-19 Status: Acute (3) Pulmonary edema Status: Acute Comment Review of Relevant I have reviewed the following items juanita (where applicable) has been applied. Medications: Current Medications Medications (Trade) Dose Ordered Sig/Jodie Route PRN Reason Start Time Stop Time Status Last Admin Dose Admin Sodium Chloride 90 meq/Potassium Chloride 30 meq/ Potassium Phosphate 13.6 mmol/Magnesium Sulfate 12 meq/ Multivitamins 5 ml/Zinc/Copper/ Manganese/ Selenium 1 ml/ Total Parenteral Nutrition/Amino Acids/Dextrose/ Fat Emulsion Intravenous 1,440 ml @ 60 mls/hr TPN CONT IV 06/08/21 22:00 06/09/21 21:59 06/08/21 22:07 Potassium Phosphate 13.6 mmol/Sodium Chloride 254.5333 ml @ 127.... 1X ONCE IV 06/08/21 14:00 06/08/21 15:59 DC 06/08/21 15:21 Justifications for Admission General Conditions Altered mental status?: Yes Justification of admission: Patient has tachycardia (> 100 beats per minute) or hypotension (SBP < 90 mm Hg) leading to inadequate systemic perfusion as indicated by severe/persistent altered mental status. Other Justification BRIAN MONTES MD Jun 09, 2021 08:24
--- NOTE | 2021-06-09 12:29 | PDOC ---
PROGRESS NOTES Date of Service DATE: 06/09/21 TIME: 12:27 Subjective Subjective SEEN IN FOLLOW UP OF ARF Objective Objective Vital Signs Date Time Temp Pulse Resp B/P (MAP) Pulse Ox O2 Delivery O2 Flow Rate FiO2 06/09/21 11:54 100 Ventilator 06/09/21 08:45 10.0 06/09/21 07:00 49 20 153/67 (95) 06/09/21 04:00 98.2 98.2 Intake and Output 06/09/21 07:00 Intake Total 2672 ml Output Total 825 ml Balance 1847 ml IV Total 2075 ml Tube Feeding 437 ml Other 160 ml Output Urine Total 385 ml Gastric Drainage Total 440 ml Physical Exam Heart: Regular rate, Normal S1, Normal S2, No murmurs, Gallops Extremities: Other (EDEMA) General: Other (DROWSY) Lungs: Clear to auscultation, Normal air movement, Other (ON VENT) Diagnosis RENAL FAILURE: Acute (Acute tubular necrosis) Assessment Assessment Problems Medical Problems: (1) Elevated troponin Status: Acute (2) Person under investigation for COVID-19 Status: Acute (3) Pulmonary edema Status: Acute Plan Plan of Care DIALYSIS TODAY AND TOLERATED WELL. NEXT DIALYSIS FRIDAY Comment Review of Relevant I have reviewed the following items juanita (where applicable) has been applied. Labs Laboratory Tests Test 06/07/21 12:54 06/07/21 17:45 06/08/21 00:11 06/08/21 05:00 Glucose (Fingerstick) 183 mg/dL (70-99) 251 mg/dL (70-99) 220 mg/dL (70-99) White Blood Count 15.6 x10^3/uL (4.0-11.0) Red Blood Count 3.11 x10^6/uL (4.30-5.70) Hemoglobin 8.5 g/dL (13.0-17.5) Hematocrit 26.3 % (39.0-53.0) Mean Corpuscular Volume 85 fL (79-100) Mean Corpuscular Hemoglobin 27 pg (25-35) Mean Corpuscular Hemoglobin Concent 32 g/dL (31-37) Red Cell Distribution Width 17.6 % (11.5-14.5) Platelet Count 283 x10^3/uL (140-400) Test 06/08/21 06:23 06/08/21 11:30 9/3/21 18:15 06/09/21 00:05 Glucose (Fingerstick) 220 mg/dL (70-99) 182 mg/dL (70-99) 246 mg/dL (70-99) Sodium Level 139 mmol/L (136-145) Potassium Level 3.9 mmol/L (3.5-5.1) Chloride Level 106 mmol/L (98-107) Carbon Dioxide Level 29 mmol/L (21-32) Anion Gap 4 (6-14) Blood Urea Nitrogen 31 mg/dL (8-26) Creatinine 2.2 mg/dL (0.7-1.3) Estimated GFR (Cockcroft-Gault) 35.6 Glucose Level 226 mg/dL (70-99) Calcium Level 8.2 mg/dL (8.5-10.1) Phosphorus Level 2.2 mg/dL (2.6-4.7) Magnesium Level 2.1 mg/dL (1.8-2.4) Test 06/09/21 06:05 06/09/21 06:07 Sodium Level 138 mmol/L (136-145) Potassium Level 4.2 mmol/L (3.5-5.1) Chloride Level 106 mmol/L (98-107) Carbon Dioxide Level 28 mmol/L (21-32) Anion Gap 4 (6-14) Blood Urea Nitrogen 42 mg/dL (8-26) Creatinine 2.6 mg/dL (0.7-1.3) Estimated GFR (Cockcroft-Gault) 29.3 Glucose Level 298 mg/dL (70-99) Calcium Level 8.4 mg/dL (8.5-10.1) Phosphorus Level 2.9 mg/dL (2.6-4.7) Magnesium Level 2.3 mg/dL (1.8-2.4) Glucose (Fingerstick) 261 mg/dL (70-99) Laboratory Tests Test 06/08/21 18:15 06/09/21 00:05 06/09/21 06:05 06/09/21 06:07 Glucose (Fingerstick) 182 mg/dL (70-99) 246 mg/dL (70-99) 261 mg/dL (70-99) Sodium Level 138 mmol/L (136-145) Potassium Level 4.2 mmol/L (3.5-5.1) Chloride Level 106 mmol/L (98-107) Carbon Dioxide Level 28 mmol/L (21-32) Anion Gap 4 (6-14) Blood Urea Nitrogen 42 mg/dL (8-26) Creatinine 2.6 mg/dL (0.7-1.3) Estimated GFR (Cockcroft-Gault) 29.3 Glucose Level 298 mg/dL (70-99) Calcium Level 8.4 mg/dL (8.5-10.1) Phosphorus Level 2.9 mg/dL (2.6-4.7) Magnesium Level 2.3 mg/dL (1.8-2.4) Microbiology 06/02/21 Gram Stain - Final, Complete 06/02/21 Aerobic Culture - Final, Complete 06/02/21 Blood Culture - Final, Complete NO GROWTH AFTER 5 DAYS 05/30/21 Gram Stain Evaluation - Final, Complete 05/30/21 Respiratory Culture - Final, Complete Medications Current Medications Propofol 100 ml @ As Directed STK-MED ONCE IV ; Start 04/24/21 at 12:36; Stop 04/24/21 at 12:36; Status DC Etomidate (Amidate) 20 mg STK-MED ONCE IV ; Start 04/24/21 at 13:38; Stop 04/24/21 at 13:38; Status DC Succinylcholine Chloride (Anectine) 200 mg STK-MED ONCE .ROUTE ; Start 04/24/21 at 13:38; Stop 04/24/21 at 13:38; Status DC Fentanyl Citrate (Fentanyl 2ml Vial) 50 mcg PRN Q1HR PRN IV PAIN; Start 04/24/21 at 14:00; Stop 04/24/21 at 14:14; Status DC Acetaminophen (Tylenol) 650 mg PRN Q6HRS PRN PO Headaches, Temp > 101.5' Last administered on 04/25/21at 17:31; Start 04/24/21 at 14:00 Ondansetron HCl (Zofran) 4 mg PRN Q6HRS PRN IVP NAUSEA/VOMITING; Start 04/24/21 at 14:00; Status Cancel Sodium Chloride (Normal Saline Flush) 3 ml QSHIFT PRN IV AFTER MEDS AND BLOOD DRAWS; Start 04/24/21 at 14:00 Fentanyl Citrate (Fentanyl 2ml Vial) 25 mcg PRN Q1HR PRN IV SEVERE PAIN 7-10; Start 04/24/21 at 14:00; Stop 04/24/21 at 14:14; Status DC Bisacodyl (Dulcolax Supp) 10 mg PRN DAILY PRN [place] CONSTIPATION Last administered on 06/08/21at 07:53; Start 04/24/21 at 14:00 Fentanyl Citrate 30 ml @ 0 mls/hr CONT PRN IV SEE PROTOCOL; Start 04/24/21 at 14:00; Stop 04/24/21 at 14:12; Status DC Propofol 100 ml @ 0 mls/hr CONT PRN IV PER PROTOCOL Last administered on 04/24/21at 15:12; Start 04/24/21 at 14:00; Stop 04/24/21 at 15:19; Status DC Chlorhexidine Gluconate (Peridex) 15 ml BID MM Last administered on 04/24/21at 20:49; Start 04/24/21 at 21:00; Stop 04/25/21 at 11:19; Status DC Acetaminophen (Tylenol) 650 mg PRN Q6HRS PRN PO Headaches, Temp > 101.5'; Start 04/24/21 at 14:00; Status Cancel Ondansetron HCl (Zofran) 4 mg PRN Q6HRS PRN IVP NAUSEA/VOMITING; Start 04/24/21 at 14:00 Fentanyl Citrate (Fentanyl 2ml Vial) 25 mcg PRN Q1HR PRN IV SEVERE PAIN 7-10 Last administered on 05/17/21at 16:12; Start 04/24/21 at 14:00 Fentanyl Citrate 30 ml @ 0 mls/hr CONT PRN IV SEE PROTOCOL Last administered on 06/09/21at 08:45; Start 04/24/21 at 14:00 Aspirin (Ecotrin) 81 mg DAILYWBKFT PO Last administered on 05/02/21at 07:20; Start 04/25/21 at 08:00; Stop 05/03/21 at 09:56; Status DC Carvedilol (Coreg) 37.5 mg BIDWMEALS PO ; Start 04/24/21 at 17:00; Stop 04/24/21 at 16:17; Status DC Montelukast Sodium (Singulair) 10 mg HS PO Last administered on 06/08/21at 21:02; Start 04/24/21 at 21:00 Atorvastatin Calcium (Lipitor) 80 mg QHS PO Last administered on 06/08/21 21: 02; Start 04/24/21 at 21:00 Heparin Sodium (Porcine) (Heparin Sodium) 5,000 unit Q8HRS SQ ; Start 04/24/21 at 22:00; Status Cancel Furosemide (Lasix) 40 mg 1X ONCE IVP Last administered on 04/24/21at 16:45; Start 04/24/21 at 15:15; Stop 04/24/21 at 15:19; Status DC Propofol 100 ml @ 0 mls/hr CONT PRN IV PER PROTOCOL Last administered on 05/17/21at 03:15; Start 04/24/21 at 15:30; Stop 05/17/21 at 11:13; Status DC Carvedilol (Coreg) 3.125 mg BIDWMEALS PO Last administered on 04/25/21at 09:23; Start 04/24/21 at 17:00; Stop 04/25/21 at 15:42; Status DC Cefepime HCl (Maxipime) 2 gm 1X ONCE IVP Last administered on 04/24/21at 18:27; Start 04/24/21 at 16:30; Stop 04/24/21 at 16:31; Status DC Insulin Human Lispro (HumaLOG) 0-9 UNITS Q6HRS SQ Last administered on 05/03/21at 12:24; Start 04/24/21 at 18:00; Stop 05/03/21 at 13:51; Status DC Dextrose (Dextrose 50%-Water Syringe) 12.5 gm PRN Q15MIN PRN IV SEE COMMENTS Last administered on 05/03/21at 04:59; Start 04/24/21 at 16:30; Stop 05/03/21 at 13:54; Status DC Heparin Sodium/ Dextrose 250 ml @ 0 mls/hr CONT PRN IV PER PROTOCOL Last administered on 05/01/21at 05:10; Start 04/24/21 at 16:45; Stop 05/01/21 at 12:32; Status DC Heparin Sodium (Porcine) (Heparin Sodium) 3,200 unit PRN Q6HRS PRN IV FOR UFH LEVEL LESS THAN 0.2 Last administered on 04/24/21at 23:32; Start 04/24/21 at 16:45; Stop 05/01/21 at 12:32; Status DC Cefepime HCl (Maxipime) 1 gm Q12HR IVP Last administered on 04/27/21at 08:09; Start 04/25/21 at 09:00; Stop 04/27/21 at 09:17; Status DC Furosemide (Lasix) 40 mg 1X ONCE IVP ; Start 04/25/21 at 11:30; Stop 04/25/21 at 11:31; Status DC Metoprolol Tartrate (Lopressor Vial) 5 mg 1X ONCE IVP Last administered on 04/25/21at 11:27; Start 04/25/21 at 11:30; Stop 04/25/21 at 11:31; Status DC Info (Anti-Coagulation Monitoring By Pharmacy) 1 each PRN DAILY PRN MC PER PROTOCOL Last administered on 04/26/21at 08:51; Start 04/25/21 at 13:00; Stop 05/02/21 at 07:36; Status DC Digoxin (Lanoxin) 500 mcg 1X ONCE IV Last administered on 04/25/21at 14:52; Start 04/25/21 at 14:45; Stop 04/25/21 at 14:46; Status DC Hydralazine HCl (Apresoline Inj) 10 mg PRN Q4HRS PRN IVP ELEVATED BP, 1ST CHOICE Last administered on 05/24/21at 08:43; Start 04/25/21 at 14:45; Stop 05/25/21 at 08:21; Status DC Metoprolol Tartrate (Lopressor Vial) 5 mg Q6HRS IVP Last administered on 06/09/21at 06:10; Start 04/25/21 at 18:00 Dexamethasone Sodium Phosphate (Decadron) 6 mg DAILY IVP Last administered on 05/06/21at 08:38; Start 04/25/21 at 17:00; Stop 05/07/21 at 09:18; Status DC Remdesivir 200 mg/ Sodium Chloride 210 ml @ 210 mls/hr 1X ONCE IV Last administered on 04/25/21at 17:09; Start 04/25/21 at 17:30; Stop 04/25/21 at 18:29; Status DC Remdesivir 100 mg/ Sodium Chloride 230 ml @ 460 mls/hr Q24H IV Last administered on 04/29/21at 13:51; Start 04/26/21 at 17:30; Stop 04/29/21 at 17:59; Status DC Midazolam HCl 100 ml @ 0 mls/hr CONT PRN IV SEE PROTOCOL Last administered on 05/02/21at 19:58; Start 04/26/21 at 07:00; Stop 05/17/21 at 11:13; Status DC Pantoprazole Sodium (PROTONIX VIAL for IV PUSH) 40 mg DAILYAC IVP Last administered on 06/08/21at 07:50; Start 04/26/21 at 09:30 Norepinephrine Bitartrate 8 mg/ Dextrose 258 ml @ 25.349 mls/ hr CONT PRN IV PER PROTOCOL Last administered on 04/26/21at 17:53; Start 04/26/21 at 12:15; Stop 05/02/21 at 20:53; Status DC Digoxin (Lanoxin) 250 mcg 1X ONCE IV Last administered on 04/26/21at 15:02; Start 04/26/21 at 13:00; Stop 04/26/21 at 13:05; Status DC Amiodarone HCl 150 mg/Dextrose 103 ml @ 618 mls/hr 1X ONCE IV Last administered on 04/27/21at 02:30; Start 04/27/21 at 02:30; Stop 04/27/21 at 02:39; Status DC Amiodarone HCl 450 mg/Dextrose 259 ml @ 33 mls/hr CONT PRN IV SEE I/O RECORD; Start 04/27/21 at 02:30; Stop 04/30/21 at 07:56; Status DC Insulin Glargine (Lantus Syringe) 25 unit QHS SQ Last administered on 05/02/21at 21:23; Start 04/27/21 at 21:00; Stop 05/03/21 at 13:45; Status DC Cefepime HCl (Maxipime) 1 gm Q24H IVP Last administered on 05/03/21at 10:02; Start 04/28/21 at 09:30; Stop 05/03/21 at 13:19; Status DC Sodium Bicarbonate (Sodium Bicarb Adult 8.4% Syr) 50 meq 1X ONCE IV Last administered on 04/27/21at 09:50; Start 04/27/21 at 09:45; Stop 04/27/21 at 09:46; Status DC Lidocaine HCl (Buffered Lidocaine 1%) 3 ml STK-MED ONCE .ROUTE ; Start 04/27/21 at 10:57; Stop 04/27/21 at 10:58; Status DC Amiodarone HCl (Cordarone) 200 mg DAILY PO ; Start 04/27/21 at 12:00; Stop 04/27/21 at 12:29; Status DC Lidocaine HCl (Buffered Lidocaine 1%) 3 ml 1X ONCE INJ Last administered on 04/27/21at 11:15; Start 04/27/21 at 11:15; Stop 04/27/21 at 11:16; Status DC Amiodarone HCl (Cordarone) 200 mg DAILY PO Last administered on 05/21/21at 11:07; Start 04/28/21 at 09:00; Stop 05/22/21 at 16:27; Status DC Sodium Chloride 1,000 ml @ 1,000 mls/hr Q1H PRN IV hypotension; Start 04/28/21 at 11:00; Stop 04/28/21 at 16:59; Status DC Albumin Human 200 ml @ 200 mls/hr 1X PRN PRN IV Hypotension; Start 04/28/21 at 11:00; Stop 04/28/21 at 16:59; Status DC Sodium Chloride (Normal Saline Flush) 10 ml 1X PRN PRN IV AP catheter pack; Start 04/28/21 at 11:00; Stop 04/29/21 at 10:59; Status DC Sodium Chloride (Normal Saline Flush) 10 ml 1X PRN PRN IV FONDANT COOKER catheter pack; Start 04/28/21 at 11:00; Stop 04/29/21 at 10:59; Status DC Sodium Chloride 1,000 ml @ 400 mls/hr Q2H30M PRN IV PATENCY; Start 04/28/21 at 11:00; Stop 04/28/21 at 22:59; Status DC Info (PHARMACY MONITORING -- do not chart) 1 each PRN DAILY PRN MC SEE COMMENTS; Start 04/28/21 at 11:00; Status UNV Info (PHARMACY MONITORING -- do not chart) 1 each PRN DAILY PRN MC SEE COMMENTS; Start 04/28/21 at 11:00; Stop 04/30/21 at 22:39; Status DC Magnesium Sulfate 50 ml @ 25 mls/hr PRN DAILY PRN IV for Mag < 1.7 on am labs; Start 04/29/21 at 10:45; Stop 05/13/21 at 12:18; Status DC Vecuronium [place] (Norcuron Bolus) 6 mg PRN Q6HRS PRN IV VENTILATOR COMPLIANCE Last administered on 05/14/21at 09:12; Start 04/30/21 at 11:15 Info (PHARMACY MONITORING -- do not chart) 1 each PRN DAILY PRN MC SEE COMMENTS; Start 04/30/21 at 12:30; Status Cancel Labetalol HCl (Normodyne Iv Push) 20 mg PRN Q2HR PRN IVP HYPERTENSION, 2ND CHOICE Last administered on 05/27/21at 15:43; Start 05/01/21 at 12:30 Heparin Sodium (Porcine) (Heparin Sodium) 5,000 unit Q8HRS SQ Last administered on 05/13/21at 05:57; Start 05/01/21 at 14:00; Stop 05/14/21 at 06:14; Status DC Furosemide (Lasix) 80 mg 1X ONCE IVP Last administered on 05/02/21at 10:45; Start 05/02/21 at 10:45; Stop 05/02/21 at 10:46; Status DC Furosemide (Lasix) 40 mg Q8HRS IVP Last administered on 05/16/21at 06:52; Start 05/02/21 at 14:00; Stop 05/16/21 at 10:01; Status DC Sodium Chloride 1,000 ml @ 1,000 mls/hr Q1H PRN IV hypotension; Start 05/02/21 at 11:30; Stop 05/02/21 at 17:29; Status DC Albumin Human 200 ml @ 200 mls/hr 1X PRN PRN IV Hypotension; Start 05/02/21 at 11:30; Stop 05/02/21 at 17:29; Status DC Sodium Chloride (Normal Saline Flush) 10 ml 1X PRN PRN IV AP catheter pack; Start 05/02/21 at 11:30; Stop 05/02/21 at 18:00; Status DC Sodium Chloride (Normal Saline Flush) 10 ml 1X PRN PRN IV FONDANT COOKER catheter pack; Start 05/02/21 at 11:30; Stop 05/02/21 at 18:00; Status DC Sodium Chloride 1,000 ml @ 400 mls/hr Q2H30M PRN IV PATENCY; Start 05/02/21 at 11:30; Stop 05/02/21 at 23:29; Status DC Info (PHARMACY MONITORING -- do not chart) 1 each PRN DAILY PRN MC SEE COMMENTS; Start 05/02/21 at 11:30; Status UNV Info (PHARMACY MONITORING -- do not chart) 1 each PRN DAILY PRN MC SEE COMMENTS; Start 05/02/21 at 11:30; Status UNV Norepinephrine Bitartrate 8 mg/ Dextrose 258 ml @ 25.852 mls/ hr CONT PRN IV PER PROTOCOL Last administered on 05/02/21at 21:22; Start 05/02/21 at 21:00; Stop 05/09/21 at 06:10; Status DC Dextrose 1,000 ml @ 50 mls/hr Q20H IV Last administered on 05/03/21at 05:15; S tart 05/03/21 at 05:15; Stop 05/03/21 at 13:53; Status DC Aspirin (Aspirin Chewable) 81 mg DAILYWBKFT PO Last administered on 06/08/21at 07:50; Start 05/03/21 at 10:00 Insulin Glargine (Lantus Syringe) 10 unit QHS SQ Last administered on 05/24/21at 21:40; Start 05/03/21 at 21:00; Stop 05/25/21 at 13:52; Status DC Insulin Human Lispro (HumaLOG) 0-5 UNITS Q6HRS SQ Last administered on 06/09/21at 06:11; Start 05/03/21 at 18:00 Dextrose (Dextrose 50%-Water Syringe) 12.5 gm PRN Q15MIN PRN IV SEE COMMENTS; Start 05/03/21 at 14:00 Sodium Chloride 1,000 ml @ 1,000 mls/hr Q1H PRN IV hypotension; Start 05/04/21 at 07:30; Stop 05/04/21 at 13:29; Status DC Albumin Human 200 ml @ 200 mls/hr 1X PRN PRN IV Hypotension Last administered on 05/04/21at 10:46; Start 05/04/21 at 07:30; Stop 05/04/21 at 13:29; Status DC Sodium Chloride (Normal Saline Flush) 10 ml 1X PRN PRN IV AP catheter pack; Start 05/04/21 at 07:30; Stop 05/05/21 at 07:29; Status DC Sodium Chloride (Normal Saline Flush) 10 ml 1X PRN PRN IV FONDANT COOKER catheter pack; Start 05/04/21 at 07:30; Stop 05/05/21 at 07:29; Status DC Sodium Chloride 1,000 ml @ 400 mls/hr Q2H30M PRN IV PATENCY; Start 05/04/21 at 07:30; Stop 05/04/21 at 19:29; Status DC Info (PHARMACY MONITORING -- do not chart) 1 each PRN DAILY PRN MC SEE COMMENTS; Start 05/04/21 at 07:30; Status UNV Info (PHARMACY MONITORING -- do not chart) 1 each PRN DAILY PRN MC SEE BERNARDO CORMIER; Start 05/04/21 at 07:30; Stop 05/07/21 at 08:47; Status DC Dexmedetomidine HCl 400 mcg/ Sodium Chloride 100 ml @ 0 mls/hr CONT PRN IV PER PROTOCOL Last administered on 06/09/21at 08:04; Start 05/04/21 at 10:30 Cefepime HCl (Maxipime) 1 gm Q24H IVP Last administered on 05/10/21at 16:31; Start 05/04/21 at 16:00; Stop 05/11/21 at 07:24; Status DC Daptomycin 600 mg/ Sodium Chloride 50 ml @ 100 mls/hr Q48H IV Last administered on 05/04/21at 15:24; Start 05/04/21 at 15:00; Stop 05/06/21 at 08:07; Status DC Potassium Chloride/Water 100 ml @ 100 mls/hr 1X ONCE IV Last administered on 05/06/21at 09:14; Start 05/06/21 at 08:30; Stop 05/06/21 at 09:29; Status DC Nicardipine HCl 50 mg/Sodium Chloride 250 ml @ 25 mls/hr CONT PRN IV SEE I/O RECORD Last administered on 05/20/21at 19:47; Start 05/06/21 at 18:45 Sodium Chloride 1,000 ml @ 1,000 mls/hr Q1H PRN IV hypotension; Start 05/07/21 at 08:45; Stop 05/07/21 at 14:44; Status DC Albumin Human 200 ml @ 200 mls/hr 1X PRN PRN IV Hypotension Last administered on 05/07/21at 11:41; Start 05/07/21 at 08:45; Stop 05/07/21 at 14:44; Status DC Sodium Chloride 1,000 ml @ 400 mls/hr Q2H30M PRN IV PATENCY; Start 05/07/21 at 08:45; Stop 05/07/21 at 20:44; Status DC Info (PHARMACY MONITORING -- do not chart) 1 each PRN DAILY PRN MC SEE COMMENTS; Start 05/07/21 at 08:45; Status UNV Info (PHARMACY MONITORING -- do not chart) 1 each PRN DAILY PRN MC SEE COMMENTS ; Start 05/07/21 at 08:45; Status Cancel Albumin Human 100 ml @ 100 mls/hr 1X ONCE IV ; Start 05/07/21 at 11:45; Stop 05/07/21 at 12:44; Status DC Multi-Ingred Cream/Lotion/Oil/ Oint (Artificial Tears Eye Ointment) 1 danielito PRN Q1HR PRN OU DRY EYE Last administered on 05/10/21at 20:51; Start 05/07/21 at 16:00 Potassium Chloride/Water 100 ml @ 100 mls/hr Q1H IV Last administered on 05/08/21at 11:54; Start 05/08/21 at 11:00; Stop 05/08/21 at 12:59; Status DC Potassium Chloride/Water 100 ml @ 100 mls/hr Q1H IV Last administered on 05/09/21at 11:43; Start 05/09/21 at 10:00; Stop 05/09/21 at 11:59; Status DC Potassium Chloride/Water 100 ml @ 100 mls/hr Q1H IV Last administered on 05/10/21at 10:56; Start 05/10/21 at 10:00; Stop 05/10/21 at 11:59; Status DC Hydralazine HCl (Apresoline) 25 mg QID PO Last administered on 05/21/21at 17:24; Start 05/10/21 at 10:00; Stop 05/22/21 at 16:27; Status DC Amlodipine Besylate (Norvasc) 5 mg DAILY PO Last administered on 05/15/21at 12:33; Start 05/10/21 at 10:00; Stop 05/16/21 at 07:50; Status DC Magnesium Sulfate 50 ml @ 25 mls/hr 1X ONCE IV Last administered on 05/10/21at 14:36; Start 05/10/21 at 13:30; Stop 05/10/21 at 15:29; Status DC Linezolid/Dextrose 300 ml @ 300 mls/hr Q12HR IV Last administered on 05/17/21at 21:45; Start 05/11/21 at 09:00; Stop 05/18/21 at 09:17; Status DC Meropenem 500 mg/ Sodium Chloride 50 ml @ 100 mls/hr Q8HRS IV Last administered on 05/16/21at 06:45; Start 05/11/21 at 14:00; Stop 05/16/21 at 07:48; Status DC Potassium Chloride/Water 100 ml @ 100 mls/hr 1X ONCE IV Last administered on 05/12/21at 08:55; Start 05/12/21 at 07:00; Stop 05/12/21 at 07:59; Status DC Sodium Chloride 1,000 ml @ 1,000 mls/hr Q1H PRN IV hypotension; Start 05/12/21 at 13:00; Stop 05/12/21 at 21:00; Status DC Albumin Human 200 ml @ 200 mls/hr 1X PRN PRN IV Hypotension; Start 05/12/21 at 13:00; Stop 05/12/21 at 21:00; Status DC Sodium Chloride 1,000 ml @ 400 mls/hr Q2H30M PRN IV PATENCY; Start 05/12/21 at 13:00; Stop 05/12/21 at 21:00; Status DC Info (PHARMACY MONITORING -- do not chart) 1 each PRN DAILY PRN MC SEE COMMENTS; Start 05/12/21 at 12:45; Status UNV Info (PHARMACY MONITORING -- do not chart) 1 each PRN DAILY PRN MC SEE COMMENTS; Start 05/12/21 at 12:45; Status UNV Potassium Chloride/Water 100 ml @ 100 mls/hr Q1H IV ; Start 05/13/21 at 12:15; Stop 05/13/21 at 12:18; Status DC Potassium Chloride/Water 100 ml @ 100 mls/hr Q1H IV ; Start 05/13/21 at 12:15; Stop 05/13/21 at 12:18; Status DC Potassium Chloride/Water 100 ml @ 100 mls/hr Q1H IV ; Start 05/13/21 at 12:15; Stop 05/13/21 at 12:17; Status DC Magnesium Sulfate 100 ml @ 50 mls/hr DAILY IV ; Start 05/14/21 at 09:00; Stop 05/13/21 at 12:17; Status DC Potassium Phosphate 20 mmol/ Sodium Chloride 256.6667 ml @ 62.5 mls/hr 1X ONCE IV ; Start 05/13/21 at 12:15; Stop 05/13/21 at 16:21; Status UNV Potassium Phosphate 30 mmol/ Sodium Chloride 260 ml @ 62.5 mls/hr 1X ONCE IV ; Start 05/13/21 at 12:15; Stop 05/13/21 at 16:24; Status UNV Potassium Chloride/Water 100 ml @ 50 mls/hr Q2H IV Last administered on 05/13/21at 15:10; Start 05/13/21 at 13:00; Stop 05/13/21 at 16:59; Status DC Ringer's Solution 1,000 ml @ 30 mls/hr Q24H IV Last administered on 05/15/21at 07:04; Start 05/15/21 at 06:00; Stop 05/15/21 at 17:59; Status DC Prochlorperazine Edisylate (Compazine) 5 mg PACU PRN PRN IVP NAUSEA, MRX1; Start 05/15/21 at 06:00; Stop 05/16/21 at 05:59; Status DC Bupivacaine HCl/ Epinephrine Bitart (Sensorcain-Epi 0.5%-1:[id number] Mpf) 30 ml STK-MED ONCE .ROUTE ; Start 05/15/21 at 07:05; Stop 05/15/21 at 07:06; Status DC Cellulose (Surgicel Fibrillar 1x2) 1 each STK-MED ONCE .ROUTE Last administered on 05/15/21at 09:40; Start 05/15/21 at 07:05; Stop 05/15/21 at 07:06; Status DC Rocuronium [place] (Zemuron) 50 mg STK-MED ONCE .ROUTE ; Start 05/15/21 at 07:06; Stop 05/15/21 at 07:07; Status DC Phenylephrine HCl (PHENYLEPHRINE in 0.9% NACL PF) 1 mg STK-MED ONCE IV ; Start 05/15/21 at 07:51; Stop 05/15/21 at 07:51; Status DC Ondansetron HCl (Zofran) 4 mg STK-MED ONCE .ROUTE ; Start 05/15/21 at 07:53; Stop 05/15/21 at 07:53; Status DC Lidocaine HCl (Lidocaine Pf 2% Vial) 5 ml STK-MED ONCE .ROUTE ; Start 05/15/21 at 07:53; Stop 05/15/21 at 07:53; Status DC Lidocaine HCl (Lidocaine Pf 2% Vial) 5 ml STK-MED ONCE .ROUTE ; Start 05/15/21 at 07:53; Stop 05/15/21 at 07:53; Status DC Dexamethasone Sodium Phosphate (Decadron) 4 mg STK-MED ONCE .ROUTE ; Start 05/15/21 at 07:53; Stop 05/15/21 at 07:53; Status DC Propofol (Diprivan) 200 mg STK-MED ONCE IV ; Start 05/15/21 at 07:53; Stop 05/15/21 at 07:53; Status DC Ephedrine Sulfate (ePHEDrine PF IN SALINE SYRINGE) 50 mg STK-MED ONCE IV ; Start 05/15/21 at 09:15; Stop 05/15/21 at 09:15; Status DC Meropenem 500 mg/ Sodium Chloride 50 ml @ 100 mls/hr Q12HR IV Last administered on 05/22/21at 21:16; Start 05/16/21 at 21:00; Stop 05/23/21 at 08:43; Status DC Amlodipine Besylate (Norvasc) 10 mg DAILY PO Last administered on 06/08/21at 07:50; Start 05/16/21 at 09:00 Potassium Bicarbonate (Potassium Effervescent Tablet) 40 meq 1X ONCE FT Last administered on 05/16/21at 09:52; Start 05/16/21 at 09:30; Stop 05/16/21 at 09:31; Status DC Furosemide (Lasix) 40 mg BID IVP Last administered on 05/17/21at 07:49; Start 05/16/21 at 10:30; Stop 05/17/21 at 09:38; Status DC Nystatin (Nystop) 1 danielito BID TP Last administered on 06/08/21at 21:02; Start 05/16/21 at 21:00 Potassium Bicarbonate (Potassium Effervescent Tablet) 40 meq Q4H PO Last administered on 05/16/21at 21:24; Start 05/16/21 at 18:00; Stop 05/16/21 at 22:01; Status DC Magnesium Sulfate 50 ml @ 25 mls/hr 1X ONCE IV Last administered on 05/16/21at 18:12; Start 05/16/21 at 18:00; Stop 05/16/21 at 19:59; Status DC Sodium Chloride 1,000 ml @ 75 mls/hr [id number] IV Last administered on 05/22/21at 18:28; Start 05/17/21 at 09:45; Stop 05/23/21 at 10:38; Status DC Erythromycin (Romycin) 0.25 inch BID OU Last administered on 05/25/21at 07:43; Start 05/17/21 at 12:00; Stop 05/25/21 at 13:24; Status DC Heparin Sodium (Porcine) (Heparin Sodium) 5,000 unit Q8HRS SQ Last administered on 05/30/21at 06:07; Start 05/18/21 at 10:00; Stop 05/30/21 at 11:07; Status DC Potassium Bicarbonate (Potassium Effervescent Tablet) 40 meq 1X ONCE PO Last administered on 05/19/21at 08:50; Start 05/19/21 at 08:30; Stop 05/19/21 at 08:31; Status DC Lorazepam (Ativan Inj) 0.25 mg PRN Q4HRS PRN IVP ANXIETY / AGITATION Last administered on 06/02/21at 04:30; Start 05/21/21 at 09:00 Potassium Chloride/Water 100 ml @ 100 mls/hr 1X ONCE IV Last administered on 05/21/21at 11:09; Start 05/21/21 at 10:30; Stop 05/21/21 at 11:29; Status DC Info (Tpn Per Pharmacy) 1 each PRN DAILY PRN MC SEE COMMENTS Last administered on 06/08/21at 14:32; Start 05/22/21 at 10:00 Magnesium Sulfate 50 ml @ 25 mls/hr 1X ONCE IV Last administered on 05/22/21at 10:24; Start 05/22/21 at 10:30; Stop 05/22/21 at 12:29; Status DC Magnesium Sulfate 50 ml @ 25 mls/hr 1X ONCE IV ; Start 05/22/21 at 11:30; Stop 05/22/21 at 13:29; Status UNV Sodium Chloride 90 meq/Potassium Chloride 25 meq/ Magnesium Sulfate 10 meq/Calcium Gluconate 5 meq/ Multivitamins 5 ml/Zinc/Copper/ Manganese/ Selenium 1 ml/ Total Parenteral Nutrition/Amino Acids/Dextrose/ Fat Emulsion Intravenous 1,080 ml @ 45 mls/hr TPN CONT IV Last administered on 05/22/21at 21:22; Start 05/22/21 at 22:00; Stop 05/23/21 at 21:59; Status DC Amiodarone HCl 450 mg/Dextrose 259 ml @ 0 mls/hr 1X ONCE IV Last administered on 05/22/21at 16:59; Start 05/22/21 at 16:30; Stop 05/22/21 at 16:34; Status DC Hydralazine HCl (Apresoline Inj) 10 mg PRN QID PRN IVP ELEVATED BP, SEE COMMENTS Last administered on 06/08/21at 22:11; Start 05/22/21 at 16:30 Meropenem 500 mg/ Sodium Chloride 50 ml @ 100 mls/hr DAILY IV Last administered on 05/25/21at 07:42; Start 05/23/21 at 09:00; Stop 05/25/21 at 11:55; Status DC Furosemide (Lasix) 80 mg 1X ONCE IVP Last administered on 05/23/21at 13:18; Start 05/23/21 at 10:45; Stop 05/23/21 at 10:46; Status DC Potassium Chloride/Water 100 ml @ 100 mls/hr Q1H IV Last administered on 05/23/21at 13:17; Start 05/23/21 at 10:45; Stop 05/23/21 at 12:44; Status DC Sodium Chloride 90 meq/Potassium Chloride 50 meq/ Magnesium Sulfate 10 meq/Calcium Gluconate 5 meq/ Multivitamins 5 ml/Zinc/Copper/ Manganese/ Selenium 1 ml/ Total Parenteral Nutrition/Amino Acids/Dextrose/ Fat Emulsion Intravenous 1,080 ml @ 45 mls/hr TPN CONT IV Last administered on 05/23/21at 22:00; Start 05/23/21 at 22:00; Stop 05/24/21 at 21:59; Status DC Sodium Chloride 90 meq/Potassium Chloride 50 meq/ Magnesium Sulfate 10 meq/Calcium Gluconate 5 meq/ Multivitamins 5 ml/Zinc/Copper/ Manganese/ Selenium 1 ml/ Total Parenteral Nutrition/Amino Acids/Dextrose/ Fat Emulsion Intravenous 1,080 ml @ 45 mls/hr TPN CONT IV Last administered on 05/24/21at 21:38; Start 05/24/21 at 22:00; Stop 05/25/21 at 21:59; Status DC Sodium Chloride 1,000 ml @ 1,000 mls/hr Q1H PRN IV hypotension; Start 05/24/21 at 14:00; Stop 05/24/21 at 19:59; Status DC Sodium Chloride 1,000 ml @ 400 mls/hr Q2H30M PRN IV PATENCY; Start 05/24/21 at 14:00; Stop 05/25/21 at 01:59; Status DC Info (PHARMACY MONITORING -- do not chart) 1 each PRN DAILY PRN MC SEE COMMENTS; Start 05/24/21 at 14:00; Status UNV Info (PHARMACY MONITORING -- do not chart) 1 each PRN DAILY PRN MC SEE COMMENTS; Start 05/24/21 at 14:00; Stop 05/26/21 at 07:18; Status DC Midazolam HCl (Versed) 5 mg 1X ONCE IV Last administered on 05/24/21at 15:20; Start 05/24/21 at 15:15; Stop 05/24/21 at 15:16; Status DC Sodium Chloride 90 meq/Potassium Chloride 50 meq/ Magnesium Sulfate 10 meq/Calcium Gluconate 5 meq/ Multivitamins 5 ml/Zinc/Copper/ Manganese/ Selenium 1 ml/ Total Parenteral Nutrition/Amino Acids/Dextrose/ Fat Emulsion Intravenous 1,080 ml @ 45 mls/hr TPN CONT IV Last administered on 05/25/21at 21:47; Start 05/25/21 at 22:00; Stop 05/26/21 at 21:59; Status DC Insulin Glargine (Lantus Syringe) 15 unit QHS SQ Last administered on 05/29/21at 21:16; Start 05/25/21 at 21:00; Stop 05/30/21 at 07:30; Status DC Sodium Chloride 1,000 ml @ 1,000 mls/hr Q1H PRN IV hypotension; Start 05/26/21 at 07:15; Stop 05/26/21 at 13:14; Status DC Albumin Human 200 ml @ 200 mls/hr 1X PRN PRN IV Hypotension; Start 05/26/21 at 07:15; Stop 05/26/21 at 13:14; Status DC Sodium Chloride 1,000 ml @ 400 mls/hr Q2H30M PRN IV PATENCY; Start 05/26/21 at 07:15; Stop 05/26/21 at 19:14; Status DC Info (PHARMACY MONITORING -- do not chart) 1 each PRN DAILY PRN MC SEE COMMENTS; Start 05/26/21 at 07:15; Status UNV Info (PHARMACY MONITORING -- do not chart) 1 each PRN DAILY PRN MC SEE COMMENTS; Start 05/26/21 at 07:15; Stop 05/30/21 at 12:10; Status DC Sodium Chloride 90 meq/Potassium Chloride 50 meq/ Magnesium Sulfate 10 meq/Calcium Gluconate 5 meq/ Multivitamins 5 ml/Zinc/Copper/ Manganese/ Selenium 1 ml/ Total Parenteral Nutrition/Amino Acids/Dextrose/ Fat Emulsion Intravenous 1,080 ml @ 45 mls/hr TPN CONT IV Last administered on 05/26/21at 21:40; Start 05/26/21 at 22:00; Stop 05/27/21 at 21:59; Status DC Furosemide (Lasix) 80 mg TID IVP Last administered on 05/31/21at 20:10; Start 05/27/21 at 09:00; Stop 06/01/21 at 11:08; Status DC Sodium Chloride 90 meq/Potassium Chloride 50 meq/ Magnesium Sulfate 10 meq/Calcium Gluconate 5 meq/ Multivitamins 5 ml/Zinc/Copper/ Manganese/ Selenium 1 ml/ Total Parenteral Nutrition/Amino Acids/Dextrose/ Fat Emulsion Intravenous 960 ml @ 40 mls/hr TPN CONT IV Last administered on 05/27/21at 22:03; Start 05/27/21 at 22:00; Stop 05/28/21 at 21:59; Status DC Sodium Phosphate 15 mmol/Dextrose 105 ml @ 105 mls/hr 1X ONCE IV Last administered on 05/28/21at 10:43; Start 05/28/21 at 10:00; Stop 05/28/21 at 10:59; Status DC Sodium Chloride 90 meq/Potassium Chloride 50 meq/ Potassium Phosphate 5 mmol/ Magnesium Sulfate 10 meq/Calcium Gluconate 5 meq/ Multivitamins 5 ml/Zinc/Copper/ Manganese/ Selenium 1 ml/ Total Parenteral Nutrition/Amino Acids/Dextrose/ Fat Emulsion Intravenous 1,200 ml @ 50 mls/hr TPN CONT IV Last administered on 05/28/21at 21:14; Start 05/28/21 at 22:00; Stop 05/29/21 at 21:59; Status DC Sodium Phosphate 15 mmol/Dextrose 105 ml @ 105 mls/hr 1X ONCE IV Last administered on 05/29/21at 11:53; Start 05/29/21 at 11:00; Stop 05/29/21 at 11:59; Status DC Sodium Chloride 90 meq/Potassium Chloride 50 meq/ Potassium Phosphate 5 mmol/ Magnesium Sulfate 10 meq/Calcium Gluconate 5 meq/ Multivitamins 5 ml/Zinc/Copper/ Manganese/ Selenium 1 ml/ Total Parenteral Nutrition/Amino Acids/Dextrose/ Fat Emulsion Intravenous 1,200 ml @ 50 mls/hr TPN CONT IV Last administered on 05/29/21at 21:17; Start 05/29/21 at 22:00; Stop 05/30/21 at 21:59; Status DC Sodium Phosphate 15 mmol/Sodium Chloride 105 ml @ 105 mls/hr 1X ONCE IV ; Start 05/29/21 at 11:45; Stop 05/29/21 at 12:44; Status UNV Acetaminophen (Tylenol Supp) 650 mg PRN Q6HRS PRN [place] MILD PAIN / TEMP > 100.3'F Last administered on 06/08/21at 22:23; Start 05/29/21 at 16:15 Insulin Glargine (Lantus Syringe) 15 unit BID SQ Last administered on 05/30/21at 20:57; Start 05/30/21 at 09:00; Stop 05/31/21 at 07:40; Status DC Cefepime HCl (Maxipime) 1 gm Q12HR IVP Last administered on 06/04/21at 20:31; Start 05/30/21 at 09:00; Stop 06/05/21 at 07:34; Status DC Metronidazole 100 ml @ 100 mls/hr Q12HR IV Last administered on 06/04/21at 20:32; Start 05/30/21 at 09:00; Stop 06/05/21 at 07:34; Status DC Linezolid/Dextrose 300 ml @ 300 mls/hr Q12HR IV Last administered on 06/02/21at 20:18; Start 05/30/21 at 09:00; Stop 06/03/21 at 08:22; Status DC Sodium Chloride 1,000 ml @ 1,000 mls/hr Q1H PRN IV hypotension; Start 05/30/21 at 11:30; Stop 05/30/21 at 17:29; Status DC Albumin Human 200 ml @ 200 mls/hr 1X PRN PRN IV Hypotension; Start 05/30/21 at 11:30; Stop 05/30/21 at 17:29; Status DC Sodium Chloride (Normal Saline Flush) 10 ml 1X PRN PRN IV AP catheter pack; Start 05/30/21 at 11:30; Stop 05/31/21 at 11:29; Status DC Sodium Chloride (Normal Saline Flush) 10 ml 1X PRN PRN IV FONDANT COOKER catheter pack; Start 05/30/21 at 11:30; Stop 05/31/21 at 11:29; Status DC Info (PHARMACY MONITORING -- do not chart) 1 each PRN DAILY PRN MC SEE COMMENTS; Start 05/30/21 at 11:30; Stop 05/30/21 at 12:10; Status DC Info (PHARMACY MONITORING -- do not chart) 1 each PRN DAILY PRN MC SEE COMMENTS; Start 05/30/21 at 11:30; Stop 05/31/21 at 13:47; Status DC Sodium Chloride 90 meq/Potassium Chloride 50 meq/ Potassium Phosphate 5 mmol/ Magnesium Sulfate 10 meq/Calcium Gluconate 5 meq/ Multivitamins 5 ml/Zinc/Copper/ Manganese/ Selenium 1 ml/ Total Parenteral Nutrition/Amino Acids/Dextrose/ Fat Emulsion Intravenous 1,200 ml @ 50 mls/hr TPN CONT IV Last administered on 05/30/21at 21:57; Start 05/30/21 at 22:00; Stop 05/31/21 at 21:59; Status DC Insulin Glargine (Lantus Syringe) 20 unit BID SQ Last administered on 06/08/21at 21:02; Start 05/31/21 at 09:00 Sodium Chloride 1,000 ml @ 1,000 mls/hr Q1H PRN IV hypotension; Start 05/31/21 at 07:45; Stop 05/31/21 at 13:44; Status DC Albumin Human 200 ml @ 200 mls/hr 1X PRN PRN IV Hypotension; Start 05/31/21 at 07:45; Stop 05/31/21 at 13:44; Status DC Sodium Chloride 1,000 ml @ 400 mls/hr Q2H30M PRN IV PATENCY; Start 05/31/21 at 07:45; Stop 05/31/21 at 19:44; Status DC Info (PHARMACY MONITORING -- do not chart) 1 each PRN DAILY PRN MC SEE COMMENTS; Start 05/31/21 at 07:45; Status Cancel Linezolid/Dextrose 300 ml @ 300 mls/hr Q12HR IV ; Start 05/31/21 at 09:00; Status UNV Potassium Phosphate 13.6 mmol/Sodium Chloride 254.5333 ml @ 127.... 1X ONCE IV Last administered on 05/31/21at 12:08; Start 05/31/21 at 12:00; Stop 05/31/21 at 13:59; Status DC Sodium Chloride 90 meq/Potassium Chloride 30 meq/ Potassium Phosphate 13.6 mmol/Magnesium Sulfate 10 meq/ Multivitamins 5 ml/Zinc/Copper/ Manganese/ Selenium 1 ml/ Total Parenteral Nutrition/Amino Acids/Dextrose/ Fat Emulsion Intravenous 1,200 ml @ 50 mls/hr TPN CONT IV Last administered on 05/31/21at 21:23; Start 05/31/21 at 22:00; Stop 06/01/21 at 21:59; Status DC Sodium Chloride 1,000 ml @ 1,000 mls/hr Q1H PRN IV hypotension; Start 06/01/21 at 08:00; Stop 06/01/21 at 13:59; Status DC Albumin Human 100 ml @ 100 mls/hr 1X PRN PRN IV Hypotension Last administered on 06/01/21at 09:30; Start 06/01/21 at 08:00; Stop 06/01/21 at 13:59; Status DC Sodium Chloride (Normal Saline Flush) 10 ml 1X PRN PRN IV AP catheter pack; Start 06/01/21 at 08:00; Stop 06/02/21 at 07:59; Status DC Sodium Chloride (Normal Saline Flush) 10 ml 1X PRN PRN IV FONDANT COOKER catheter pack; Start 06/01/21 at 08:00; Stop 06/02/21 at 07:59; Status DC Sodium Chloride 1,000 ml @ 400 mls/hr Q2H30M PRN IV PATENCY; Start 06/01/21 at 08:00; Stop 06/01/21 at 19:59; Status DC Info (PHARMACY MONITORING -- do not chart) 1 each PRN DAILY PRN MC SEE COMMENTS; Start 06/01/21 at 08:00; Status UNV Info (PHARMACY MONITORING -- do not chart) 1 each PRN DAILY PRN MC SEE COMMENTS; Start 06/01/21 at 08:00; Status Cancel Potassium Phosphate 10 mmol/ Sodium Chloride 103.3333 ml @ 51.667 m... Q2H IV Last administered on 06/01/21at 13:24; Start 06/01/21 at 12:00; Stop 06/01/21 at 15:59; Status DC Sodium Chloride 90 meq/Potassium Chloride 30 meq/ Potassium Phosphate 13.6 mmol/Magnesium Sulfate 10 meq/ Multivitamins 5 ml/Zinc/Copper/ Manganese/ Seleni um 1 ml/ Total Parenteral Nutrition/Amino Acids/Dextrose/ Fat Emulsion Intravenous 1,200 ml @ 50 mls/hr TPN CONT IV Last administered on 06/01/21at 21:33; Start 06/01/21 at 22:00; Stop 06/02/21 at 21:59; Status DC Micafungin Sodium 100 mg/Dextrose 100 ml @ 100 mls/hr Q24H IV Last administered on 06/04/21at 09:54; Start 06/02/21 at 09:00; Stop 06/05/21 at 07:34; Status DC Magnesium Sulfate 50 ml @ 25 mls/hr 1X ONCE IV Last administered on 06/02/21at 09:53; Start 06/02/21 at 08:45; Stop 06/02/21 at 10:44; Status DC Propofol 100 ml @ 4.185 mls/ hr CONT PRN IV PER PROTOCOL Last administered on 06/08/21at 22:30; Start 06/02/21 at 09:30 Sodium Chloride 90 meq/Potassium Chloride 30 meq/ Potassium Phosphate 13.6 mmol/Magnesium Sulfate 12 meq/ Multivitamins 5 ml/Zinc/Copper/ Manganese/ Selenium 1 ml/ Total Parenteral Nutrition/Amino Acids/Dextrose/ Fat Emulsion Intravenous 1,200 ml @ 50 mls/hr TPN CONT IV Last administered on 06/02/21at 21:31; Start 06/02/21 at 22:00; Stop 06/03/21 at 21:59; Status DC Sodium Chloride 1,000 ml @ 1,000 mls/hr Q1H PRN IV hypotension; Start 06/02/21 at 11:45; Stop 06/02/21 at 17:44; Status DC Albumin Human 200 ml @ 200 mls/hr 1X PRN PRN IV Hypotension; Start 06/02/21 at 11:45; Stop 06/02/21 at 17:44; Status DC Sodium Chloride 1,000 ml @ 400 mls/hr Q2H30M PRN IV PATENCY; Start 06/02/21 at 11:45; Stop 06/02/21 at 23:44; Status DC Info (PHARMACY MONITORING -- do not chart) 1 each PRN DAILY PRN MC SEE COMMENTS; Start 06/02/21 at 11:45; Status Cancel Sodium Chloride 90 meq/Potassium Chloride 30 meq/ Potassium Phosphate 13.6 mmol/Magnesium Sulfate 12 meq/ Multivitamins 5 ml/Zinc/Copper/ Manganese/ Selen ium 1 ml/ Total Parenteral Nutrition/Amino Acids/Dextrose 1,200 ml @ 50 mls/hr TPN CONT IV Last administered on 06/03/21at 21:19; Start 06/03/21 at 22:00; Stop 06/04/21 at 21:59; Status DC Lidocaine HCl (Buffered Lidocaine 1%) 3 ml STK-MED ONCE .ROUTE ; Start 06/04/21 at 08:58; Stop 06/04/21 at 08:58; Status DC Lidocaine HCl (Buffered Lidocaine 1%) 6 ml 1X ONCE INJ Last administered on 06/04/21at 09:34; Start 06/04/21 at 09:30; Stop 06/04/21 at 09:31; Status DC Sodium Chloride 90 meq/Potassium Chloride 30 meq/ Potassium Phosphate 13.6 mmol/Magnesium Sulfate 12 meq/ Multivitamins 5 ml/Zinc/Copper/ Manganese/ Selenium 1 ml/ Total Parenteral Nutrition/Amino Acids/Dextrose 1,200 ml @ 50 mls/hr TPN CONT IV Last administered on 06/04/21at 21:50; Start 06/04/21 at 22:00; Stop 06/05/21 at 21:59; Status DC Bisacodyl (Dulcolax Supp) 10 mg 1X ONCE [place] Last administered on 06/04/21at 17 :56; Start 06/04/21 at 16:30; Stop 06/04/21 at 16:31; Status DC Fluconazole/ Sodium Chloride 100 ml @ 100 mls/hr Q24H IV Last administered on 06/08/21at 11:24; Start 06/05/21 at 09:00 Sodium Chloride 90 meq/Potassium Chloride 30 meq/ Potassium Phosphate 13.6 mmol/Magnesium Sulfate 12 meq/ Multivitamins 5 ml/Zinc/Copper/ Manganese/ Selenium 1 ml/ Total Parenteral Nutrition/Amino Acids/Dextrose 1,200 ml @ 50 mls/hr TPN CONT IV Last administered on 06/05/21at 22:12; Start 06/05/21 at 22:00; Stop 06/06/21 at 21:59; Status DC Sodium Chloride 1,000 ml @ 1,000 mls/hr Q1H PRN IV hypotension; Start 06/05/21 at 10:15; Stop 06/05/21 at 16:14; Status DC Albumin Human 100 ml @ 100 mls/hr 1X PRN PRN IV Hypotension Last administered on 06/05/21at 11:10; Start 06/05/21 at 10:15; Stop 06/05/21 at 16:14; Status DC Sodium Chloride 1,000 ml @ 400 mls/hr Q2H30M PRN IV PATENCY; Start 06/05/21 at 10:15; Stop 06/05/21 at 22:14; Status DC Info (PHARMACY MONITORING -- do not chart) 1 each PRN DAILY PRN MC SEE COMMENTS; Start 06/05/21 at 10:15; Status UNV Info (PHARMACY MONITORING -- do not chart) 1 each PRN DAILY PRN MC SEE COMMENTS; Start 06/05/21 at 10:15; Status Cancel Sodium Chloride 90 meq/Potassium Chloride 30 meq/ Potassium Phosphate 13.6 mmol/Magnesium Sulfate 12 meq/ Multivitamins 5 ml/Zinc/Copper/ Manganese/ Selenium 1 ml/ Total Parenteral Nutrition/Amino Acids/Dextrose 1,200 ml @ 50 mls/hr TPN CONT IV Last administered on 06/06/21at 22:44; Start 06/06/21 at 22:00; Stop 06/07/21 at 21:59; Status DC Sodium Chloride 1,000 ml @ 1,000 mls/hr Q1H PRN IV hypotension; Start 06/07/21 at 08:00; Stop 06/07/21 at 13:59; Status DC Info (PHARMACY MONITORING -- do not chart) 1 each PRN DAILY PRN MC SEE COMMENTS; Start 06/07/21 at 08:00 Info (PHARMACY MONITORING -- do not chart) 1 each PRN DAILY PRN MC SEE COMMENTS; Start 06/07/21 at 08:00; Status UNV Sodium Chloride 90 meq/Potassium Chloride 30 meq/ Potassium Phosphate 13.6 mmol/Magnesium Sulfate 12 meq/ Multivitamins 5 ml/Zinc/Copper/ Manganese/ Selenium 1 ml/ Total Parenteral Nutrition/Amino Acids/Dextrose 1,200 ml @ 50 mls/hr TPN CONT IV Last administered on 06/07/21at 22:16; Start 06/07/21 at 22:00; Stop 06/08/21 at 21:59; Status DC Sodium Chloride 90 meq/Potassium Chloride 30 meq/ Potassium Phosphate 13.6 mmol/Magnesium Sulfate 12 meq/ Multivitamins 5 ml/Zinc/Copper/ Manganese/ Selenium 1 ml/ Total Parenteral Nutrition/Amino Acids/Dextrose/ Fat Emulsion Intravenous 1,440 ml @ 60 mls/hr TPN CONT IV Last administered on 06/08/21at 22:07; Start 06/08/21 at 22:00; Stop 06/09/21 at 21:59 Potassium Phosphate 13.6 mmol/Sodium Chloride 254.5333 ml @ 127.... 1X ONCE IV Last administered on 06/08/21at 15:21; Start 06/08/21 at 14:00; Stop 06/08/21 at 15:59; Status DC Sodium Chloride 1,000 ml @ 1,000 mls/hr Q1H PRN IV hypotension; Start 06/09/21 at 07:30; Stop 06/09/21 at 13:29 Sodium Chloride 1,000 ml @ 400 mls/hr Q2H30M PRN IV PATENCY; Start 06/09/21 at 07:30; Stop 06/09/21 at 19:29 Info (PHARMACY MONITORING -- do not chart) 1 each PRN DAILY PRN MC SEE COMMENTS; Start 06/09/21 at 07:30 Sodium Chloride 90 meq/Potassium Chloride 30 meq/ Potassium Phosphate 13.6 mmol/Magnesium Sulfate 12 meq/ Multivitamins 5 ml/Zinc/Copper/ Manganese/ Selenium 1 ml/ Total Parenteral Nutrition/Amino Acids/Dextrose/ Fat Emulsion Intravenous 1,440 ml @ 60 mls/hr TPN CONT IV ; Start 06/09/21 at 22:00; Stop 06/10/21 at 21:59 Active Scripts Active Glyburide 2.5 Mg Tablet 1 Tab PO DAILY 14 Days Polyethylene Glycol 3350 17 Gm Powd.pack 17 Gm PO DAILY 14 Days Dok (Docusate Sodium) 100 Mg Capsule 100 Mg PO PRN DAILY PRN 30 Days Bisacodyl 5 Mg Tablet. 5 Mg PO PRN DAILY PRN 14 Days Acetaminophen 325 Mg Tablet 650 Mg PO PRN Q4HRS PRN 14 Days Aspirin Ec (Aspirin) 81 Mg Tablet. 81 Mg PO DAILYWBKFT 30 Days Hydralazine Hcl 25 Mg Tablet 25 Mg PO QID 30 Days Reported Fenofibrate 54 Mg Tablet 1 Tab PO DAILY Potassium Chloride (Potassium Chloride) 20 Meq Tablet.er 20 Meq PO DAILY Coreg (Carvedilol) 12.5 Mg Tablet 37.5 Mg PO BIDWMEALS Rosuvastatin Calcium 40 Mg Tablet 40 Mg PO QHS Gabapentin (Gabapentin) 100 Mg Capsule 200 Mg PO BID Montelukast Sodium Tablet (Montelukast Sodium) 10 Mg Tablet 10 Mg PO HS Protonix (Pantoprazole Sodium) 20 Mg Tablet. 2 Tab PO DAILY Amlodipine Besylate 5 Mg Tablet 5 Mg PO DAILY Furosemide 40 Mg Tablet 1 Tab PO DAILY Proair Hfa Inhaler (Albuterol Sulfate) 8.5 Gm Hfa.aer.ad 2 Puff IH PRN Q4-6HRS PRN 21 Days Advair 100-50 Diskus (Fluticasone/Salmeterol) 1 Each Disk.w.dev 1 Puff IH BID Vitals/I & O Vital Sign - Last 24 Hours 06/08/21 06/08/21 06/08/21 06/08/21 14:20 15:23 16:14 16:14 Temp 97.8 97.8 Pulse 86 Resp 18 B/P (MAP) 154/73 (100) Pulse Ox 100 100 100 O2 Delivery Ventilator Ventilator Mechanical Ventilator 06/08/21 06/08/21 06/08/21 06/08/21 17:39 18:18 18:41 19:00 Pulse 77 77 88 Resp 18 28 B/P (MAP) 176/72 176/72 (106) 184/87 (119) Pulse Ox 100 99 100 O2 Delivery Ventilator Ventilator Vent--Pressure support 06/08/21 06/08/21 06/08/21 06/08/21 20:00 20:00 20:20 21:00 Temp 101.0 101.0 Pulse 86 84 Resp 48 22 B/P (MAP) 166/74 (104) 151/74 (99) Pulse Ox 100 100 100 O2 Delivery Vent--Pressure support Mechanical Ventilator Ventilator Ventilator 06/08/21 06/08/21 06/08/21 06/08/21 22:00 22:08 22:11 22:30 Temp 101.1 101.1 Pulse 86 86 94 Resp 22 20 26 B/P (MAP) 189/77 (114) 189/77 186/82 (116) Pulse Ox 100 100 100 O2 Delivery Ventilator Ventilator Ventilator 06/08/21 06/08/21 06/08/21 06/08/21 22:35 23:00 23:10 23:13 Pulse 96 96 Resp 20 20 B/P (MAP) 180/87 (118) 180/87 Pulse Ox 100 100 100 O2 Delivery Ventilator Ventilator 06/08/21 06/08/21 06/08/21 06/09/21 23:15 23:59 23:59 01:00 Temp 99.8 99.8 Pulse 81 68 88 Resp 20 26 24 B/P (MAP) 168/76 (106) 146/61 (89) 168/82 (110) Pulse Ox 100 100 100 O2 Delivery Ventilator Ventilator Mechanical Ventilator Ventilator 06/09/21 06/09/21 06/09/21 06/09/21 01:29 02:00 03:00 03:37 Pulse 53 52 Resp 20 20 B/P (MAP) 133/54 (80) 144/60 (88) Pulse Ox 100 100 100 100 O2 Delivery Ventilator Ventilator Ventilator Ventilator 06/09/21 06/09/21 06/09/21 06/09/21 04:00 04:00 05:00 05:44 Temp 98.2 98.2 Pulse 57 57 Resp 20 20 B/P (MAP) 168/82 (110) 162/72 (102) Pulse Ox 100 100 100 O2 Delivery Mechanical Ventilator Ventilator Ventilator Ventilator 06/09/21 06/09/21 06/09/21 06/09/21 06:00 06:10 07:00 07:55 Pulse 57 57 49 Resp 20 20 B/P (MAP) 159/69 (99) 159/69 153/67 (95) Pulse Ox 100 100 100 O2 Delivery Ventilator Ventilator Ventilator 06/09/21 06/09/21 06/09/21 08:05 08:45 11:54 Pulse Ox 100 100 O2 Delivery Ventilator Ventilator Ventilator O2 Flow Rate 10.0 Intake and Output 06/08/21 06/08/21 06/09/21 15:00 23:00 07:00 Intake Total 20 ml 1934 ml 718 ml Output Total 265 ml 230 ml 330 ml Balance -245 ml 1704 ml 388 ml Justifications for Admission General Conditions Altered mental status?: Yes Justification of admission: Patient has tachycardia (> 100 beats per minute) or hypotension (SBP < 90 mm Hg) leading to inadequate systemic perfusion as indicated by severe/persistent altered mental status. Other Justification CLINT SAEED MD Jun 09, 2021 12:29
[2021-06-09] MEDS: INSULIN GLARGINE SYRINGE. SQ SCH ×2 (12:36→20:36)
[2021-06-09] MEDS: NYSTATIN TOPICAL POWDER 15GM BOTTLE. TP SCH ×2 (12:37→21:26)
[2021-06-09] MEDS: FLUCONAZOLE 200MG/100ML PREMIX 100 ML IV SCH (12:38)
[2021-06-09] MEDS: ASPIRIN CHEWABLE 81 MG TABLET. PO SCH (12:38)
[2021-06-09] MEDS: PANTOPRAZOLE IV PUSH 40 MG VIAL. IVP SCH (12:39)
[2021-06-09] MEDS: TPN PER PHARMACY MC PRN (12:40)
--- NOTE | 2021-06-09 12:40 | NUR ---
Pharmacy TPN Dosing Note S: NILAM LAN is a 75 year old M Currently receiving Central Continuous TPN started 05/22/21 B:Pertinent PMH: ILEUS Height: 6 feet, 2 inches Weight: 138.3 kg Current diet: NPO LABS: Sodium: 138 Potassium: 4.2 Chloride: 106 Calcium: 8.4 Corrected Calcium: 10.32 Magnesium: 2.3 CO2: 28 SCr: 2.6 Glucose: 298, 261 Albumin: 1.6 AST: 27 ALT: 19 TPN FORMULA: TPN TYPE: Central Continuous AMINO ACIDS: 110 gm DEXTROSE: 295 gm LIPIDS: 40 gm SODIUM CHLORIDE: 90 mEq POTASSIUM CHLORIDE: 30 mEq POTASSIUM PHOSPHATE: 13.6 mmol MAGNESIUM: 12 mEq MULTIPLE VITAMIN: 5 ml TRACE ELEMENTS: 1 ml TPN PLAN: -Vomiting overnight, tube feeds on hold, continue TPN. -Serum phos replaced to normal. All other Lytes appear WNL and stable, continue TPN with no changes. -No labs tomorrow due to TPN stability. R: Continue TPN @ current rate and above formula. Will monitor electrolytes, glucose, and tolerance to TPN. PHILIPPE OROPEZA [facility], 06/09/21 [id number]
--- NOTE | 2021-06-09 12:52 | PDOC ---
Infectious Disease Note Subjective Subjective Pt remains vent dependent No nausea vomiting diarrhea Discussed with nursing staff Vital Sign Vital Signs Vital Signs Date Time Temp Pulse Resp B/P (MAP) Pulse Ox O2 Delivery O2 Flow Rate FiO2 06/09/21 12:38 73 158/62 06/09/21 11:54 100 Ventilator 06/09/21 08:45 10.0 06/09/21 07:00 20 06/09/21 04:00 98.2 98.2 Physical Exam PHYSICAL EXAM GENERAL: Well-developed and well-nourished male, sedated , on vent HEENT: Normocephalic, atraumatic, redness and erythema of both eyes improved, NG tube present NECK: right dialysis catheter present clean,central line changed ( 05/11) Trach + HEART: S1, S2.no gallop LUNGS: Decreased breath sounds. ABDOMEN: Less distended, bowel sounds present GENITOURINARY: Nieves in place. EXTREMITIES: Edema present. DERMATOLOGIC: Warm, dry, no generalized rash. NEUROLOGIC: Opens eyes PICC line clean Labs Lab Laboratory Tests Test 06/08/21 18:15 06/09/21 00:05 06/09/21 06:05 06/09/21 06:07 Glucose (Fingerstick) 182 mg/dL (70-99) 246 mg/dL (70-99) 261 mg/dL (70-99) Sodium Level 138 mmol/L (136-145) Potassium Level 4.2 mmol/L (3.5-5.1) Chloride Level 106 mmol/L (98-107) Carbon Dioxide Level 28 mmol/L (21-32) Anion Gap 4 (6-14) Blood Urea Nitrogen 42 mg/dL (8-26) Creatinine 2.6 mg/dL (0.7-1.3) Estimated GFR (Cockcroft-Gault) 29.3 Glucose Level 298 mg/dL (70-99) Calcium Level 8.4 mg/dL (8.5-10.1) Phosphorus Level 2.9 mg/dL (2.6-4.7) Magnesium Level 2.3 mg/dL (1.8-2.4) Test 06/09/21 12:45 Glucose (Fingerstick) 213 mg/dL (70-99) Micro BLOOD CULTURE LC Final Final FINAL ID= [MANDI PARAPSILOSIS] NO FURTHER WORKUP MANDI PARAPSILOSIS Unless otherwise specified, Testing Performed by: [facility] [address] [place] [address] For Inquires, the Physician may contact the Microbiology department at [phone] Objective Assessment Fungemia May 30, 2021, C parapsilosis, 06/02 neg RT IJ central line removed cath tip sent for cult 1. Febrile illness resolved 2. Leukocytosis, was on steroids,ileus could contribute,improving 3. COVID-19 pneumonia. 4. Acute hypoxic respiratory failure status post intubation.Now S/P Trach 05/15 Pleural effusion 5. Congestive heart failure, acute on chronic. 6. Acute kidney injury on chronic kidney disease on hemodialysis. 7. Diabetes mellitus 2. 8. Atrial fibrillation. 9. Anemia. 10. Protein-calorie malnutrition. 11. Hypertention 12.Hyponatremia 13. Ileus, Bowel obstruction Peg TF on hold, OG to LIS 14.on PPN 15.Mild to Moderate Pleural effusion 16.Lt eye conjunctivitis resolved Plan Plan of Care diflucan Monitor labs and cultures lines removed Repeat Bc remain negative Nieves changed 05/30 C. difficile PCR negative Remains critically ill Continue supportive care Prognosis poor Patient's family is deciding whether to go ahead with permacath or not Discussed with nursing staff JAD RIVERO MD Jun 09, 2021 12:52
[2021-06-09] MEDS ORDERED: DEXTROSE 50% 25 GM / 50ML DISP.SYRIN. IV PRN (16:30)
[2021-06-09] MEDS: ATORVASTATIN CALCIUM 40 MG TABLET. PO SCH (20:31)
[2021-06-09] MEDS: MONTELUKAST SODIUM 10 MG TABLET. PO SCH (20:32)
[2021-06-09] MEDS ORDERED: TOTAL PARENTERAL NUTRITION IV SCH (22:00)
[2021-06-09] MEDS ORDERED: AMINO ACID IV SCH (22:00)
[2021-06-09] MEDS ORDERED: DEXTROSE 70% IV SCH (22:00)
[2021-06-09] MEDS ORDERED: [UNRECOGNIZED DRUG - OTHER] IV SCH (22:00)
[2021-06-10] VITALS (23 sets, daily range): BP systolic 101–184; BP diastolic 53–90
[2021-06-10] MEDS: METOPROLOL IV PUSH 5 MG/5 ML VIAL. IVP SCH ×4 (00:19→17:37)
[2021-06-10] MEDS: INSULIN LISPRO 300 UNITS/3 ML VIAL. SQ SCH ×8 (00:25→17:48)
[2021-06-10] MEDS: DEXMEDETOMIDINE 400 MCG in IV NORMAL SALINE 100ML 96 ML IV PRN ×4 (02:07→21:05)
[2021-06-10] MEDS: ASPIRIN CHEWABLE 81 MG TABLET. PO SCH (08:01)
[2021-06-10] MEDS: PANTOPRAZOLE IV PUSH 40 MG VIAL. IVP SCH (08:01)
[2021-06-10] MEDS: NYSTATIN TOPICAL POWDER 15GM BOTTLE. TP SCH ×2 (08:51→23:03)
[2021-06-10] MEDS: INSULIN GLARGINE SYRINGE. SQ SCH ×2 (08:51→22:41)
[2021-06-10] MEDS: FLUCONAZOLE 200MG/100ML PREMIX 100 ML IV SCH (08:52)
--- NOTE | 2021-06-10 09:24 | PDOC ---
[facility] PROGRESS NOTE Date of Service DOS: DATE: 06/10/21 TIME: 09:22 Chief Complaint Chief Complaint Respiratory failure requiring intubation COVID-19 Acute ID A. fib SIRS Hypertension with hypertensive urgency Hyperlipidemia CKD Diabetes History of bilateral subclavian stenosis History of marijuana use Severe protein calorie malnutrition Trach placed on May 15 GI consulted for PEG evaluation --> patient with a lot of vomiting yesterday thus current NG tube to low intermittent suction Anemia secondary to acute blood loss, possible multiple lab draws and related to advanced CKD Positive yeast on 1 out of 4 bottles on blood cultures FEN - TPN PPX - PPI CODE - DNR/DNI Dispo - ICU critically ill History of Present Illness History of Present Illness 06/10: Tolerating 30 cc every 3 hours tube feed with minimal residuals overnight. Remains in A. fib. Abdomen appears a bit more distended, soft. Minimally sedated propofol Precedex on [employer] FiO2 40% PEEP 5. CC time 31 min spent in reviewing chart, labs, and images. Discussed with RN and SW. Mr Cunha is a 75 yo male w/ PMHx CAD, HTN, Hyperlipidemia, subclavian steel s yndrome, subclavian stenosis s/p left subclavian sent placement complicated by retroperitoneal hematoma s/p evacuation in 08/2015), asthma, BART, CKD, DM2 who presented from home with home health care noted that he was short of breath and valverde with O2 saturations less than 89% as low as 84% not improved with nasal cannulated oxygen placed on CPAP and brought to ED for further care. He was just discharged from the hospital a week ago on April 19, 2021 for abdominal pain and was going for further cardiac testing with outpatient stress testing scheduled on May 28, 2021. Had echocardiogram April 17, 2021 with normal-appearing EF with moderate concentric LVH no significant valvular abnormalities. WBC 20, Hb 10.7, platelets 268, NA 140, K3.8, BUN 21, CR 2.9, glucose 162, albumin 3, troponin I 1.372, NT proBNP 33,318. EKG appears sinus tachycardia rate of 105 bpm with multiple PACs small ST depressions in lead II and V5. TWI in V6. Chest radiograph with diffuse interstitial and alveolar opacities and ET tube 5.8 cm above the leilani. Due to worsening respiratory status ED physician elected to intubate patient. Seen postintubation. Blood pressure little low after propofol bolus, but improved. Significant white frothy sputum per ET tube. Admitted to ICU for further care 04/25: On vent FiO2 50, PEEP 5. Febrile, T-max 103.3. Patient was initiated on cooling blankets. Procalcitonin 0.13. 04/26: COVID-19 positive. Febrile overnight that was managed with cooling blankets. On vent with FiO2 50%, PEEP 5. Per cardiology, elevated troponins likely secondary to demand ischemia; continue heparin drip per cardiology. Continue treatment with remdesivir, steroids, and antibiotics. 04/27: Afebrile. Vent with FiO2 50%, PEEP 5. Troponin 2.8 yesterday; probable type II, demand ischemia. New onset A. fib. Cont heparin gtt and prn digoxin, per cardiology. Contnue treatment with remdesivir, steroids, and prophylactic antibiotics. BG 323 this morning; will add basal insulin. 04/28: Afebrile. FiO2 50%, PEEP 5. Nontunneled HD catheter placed yesterday due to worsening kidney function; eGFR 16 (CKD4). Chest x-ray showed unchanged interstitial opacities. Continue empiric antibiotics, steroids, and remdesivir. Continue heparin infusion, for new dx A. fib. 04/29: Afebrile, remains on vent at FiO2 45%, PEEP 5. WBC 20.4. Hemodialysis per nephrology. We will continue treatment with empiric antibiotics, remdesivi r, and steroids. Continue heparin infusion and supportive care. 04/30: Patient seen and examined in the [place] [address] ICU. He remains on the vent. AC/20/500/40 5% with 5 PEEP. Currently on dialysis. Has OG feeds running. Has a Nieves to bedside drainage. Sedated with propofol and fentanyl. He remains critically ill 05/01: Patient seen and examined in the [facility]- ICU. He is still intubated. AC/20/500/40 percent with 5 of PEEP. In A. fib. Sedated with propofol fentanyl and Versed. Has a heparin drip 05/02: Patient seen and examined in the [facility]- ICU. He is sedated with propofol fentanyl and Versed. AC/20/500/40 percent with 5 of PEEP. He remains critically ill 05/03: Patient seen and examined in the [place] [address] ICU. He is still intubated. AC/20/500/70 percent with 5 of PEEP. Sedated with fentanyl Versed and propofol. Remains critically ill 05/04: Patient seen and examined in the [place] [address] ICU. Still intubated. Sedated with propofol and fentanyl. AC/20/500/70 percent with 5 of PEEP. On dialysis currently 05/05: Patient seen and examined in the [place] [address] ICU. He remains on the vent. AC/20/500/40 percent with 5 of PEEP. He remains critically ill 05/06: Patient seen and examined in the [place] [address] ICU. He remains mechanically ventilated. AC/20/500/40 05/07: Patient seen and examined in the [place] [address] ICU. He remains mechanically ventilated. ILDA on CKD - ATN 2/2 sepsis/ Hypotension,UOP good,on IV Lasix ; requiring dialysis, . AC/20/500/40 percent with 5 of PEEP. Sedated with propofol Dex and fentanyl 05/08: Currently on 40%, 5 of PEEP. now on cardene gtt. Patient seen and examined in the [place] [address] ICU. 05/09: VENT %, 5 of PEEP. Mild pulmonary edema with new small right pleural effusion and basilar opacities. Change central line and send cath tip for cultures. 05/10: VENT [id number]%, 5 of PEEP. Mild pulmonary edema with new small right pleural effusion and basilar opacities. Patient seen and examined in the [place] [id number] ICU 05/11: Continue iv cefepime , add zyvox, sputum culture 05/12: Continue iv cefepime , add zyvox, sputum culture. VENT [id number]%, 5 of PEEP. now on cardene gtt prn 05/13: Did not tolerate sedation vacation 05/11/2021, profoundly hypertensive. ABG/CXR--changes as needed. Continue iv cefepime , add zyvox, sputum culture. VENT %, 5 of PEEP. Mild pulmonary edema with new small right pleural effusion and basilar opacities. now on cardene gtt prn 05/14: Patient seen and examined at bedside. Remains intubated and sedated planning for tracheostomy tomorrow. Continue current respiratory support; continue antibiotics, continue sedation. Follow recommendations of pulmonary, renal, and infectious disease 05/15: Patient seen and examined at bedside. Remains intubated and sedated planning for tracheostomy today. Continue current respiratory support; continue antibiotics, continue sedation. 05/16: Patient seen and examined at bedside. Underwent tracheostomy yesterday today tolerated well. When seen this morning patient is still notably sedated respiratory status is stable. measures. 05/17: Patient seen and examined at bedside. Attempting to wean sedation. Patient with some diarrhea. Per infectious disease will give erythromycin eye ointment for eye lesions. Nephro and pulm also following. 05/18: Patient seen and examined at bedside. Attempting to increase tube feeds, GI consulted for PEG evaluation. Otherwise no major clinical changes. Continue to wean sedation. Plan of care discussed with bedside nurse. 05/19: Patient seen and examined at bedside. Apparently had a fair bit of vomiting overnight. GI following for PEG evaluation. Otherwise patient remained stable. Plan of care discussed with bedside nurse. 05/20: Patient seen and examined at bedside. Again had multiple bouts of vomiting yesterday. GI continuing to follow for PEG evaluation although on hold right now due to persistent vomiting. Leukocytosis 05/21: Afebrile, no acute events overnight. Remains on vent, FiO2 40%, PEEP 5. S/P tracheostomy on 05/15/2021. KUB on 05/19/2021 consistent with ileus. Per GI, continue NG tube to suction and parenteral nutrition for now. Continue IV antibiotics, per ID. Continue hemodialysis 05/22: Afebrile. On vent with FiO2 40%, PEEP 5. Excessive NG output. Continue NG tube to suction for now; PEG on hold for now. Continue hemodialysis, per nephrology. Continue IV antibiotics, per ID. 05/23: Afebrile. Vent with FiO2 40%, PEEP 5. NG tube for 635 mL out overnight. Continue NG tube to suction. HD 05/24: No acute events overnight. Afebrile. NG tube output has decreased. Kidney function appears stable. Continue IV antibiotics, per ID. Patient has been accepted to [facility], pending insurance authorization. 05/25: Afebrile. On vent with FiO2 40%, PEEP 5. Hemoglobin 8.6 yesterday, hemoglobin 7.3 today. Reportedly had HD yesterday. Continue IV antibiotics, per ID; WBC possibly reactive to ileus. Has been accepted at [facility]; transfer pending, but will need PEG tube placement prior. 05/26: Afebrile. On vent with FiO2 40%, PEEP 5. Hemoglobin 7.3 yesterday, and hemoglobin 7.2 today; continue to trend. Leukocytosis slightly improved, WBC 12.9 today. Has been accepted at [facility]; transfer pending, but will need PEG tube placement prior. 05/27: Afebrile. On vent with FiO2 40%, PEEP 5. Hemoglobin remains stable at 7.2 today; continue to trend. WBC 13.4. Kidney function appears to be stabilized. LTAC transfer is pending PEG tube placement. Off meropenem; will continue to monitor. Kidney function appears to be stable. 05/28: No acute events overnight. Patient doing well on trach with settings of 40% FiO2 and PEEP of 8. Pending PEG placement after ileus is resolved will defer this to GI for timing of PEG placement.. Also pending tunneled catheter placement for dialysis. 05/29: No acute events or night. Patient tolerating trach collar humidified. Saturating at 99%. Pending PICC line placement and IJ central line removal. Per ID. Possibly in not needing HD. Making urine adequately with Lasix as needed. 05/30: No acute events overnight. Patient doing well on trach collar. Hemoglobin decreased down to 6.7 pending 1 unit PRBC transfusion. Restarted on linezolid and Flagyl and cefepime. Pending PICC placement and central line IJ removal. 05/31: No acute events overnight. Patient saturating 100% on trach collar. Hemoglobin improved after 1 unit PRBC transfusion to 8.4. Patient is currently undergoing dialysis and his labs have been stable. Patient's chart, labs, images were reviewed and discussed with RN 06/01: No acute events overnight. Patient saturating well on trach collar. Patient seen and examined bedside and on HD. Hemoglobin trended down from 8.4- 7.3. Afebrile in the last 24 hours. Patient's chart, labs, images were reviewed and discussed with RN 06/02: No acute events overnight. Patient saturating 100% on trach collar. Tmax 100.3. Yeast 1 of 4 bottles on blood cultures. Plan to remove central line and dialysis catheter. Family consideration for tunneled catheterization possibly h old. Micafungin was started per ID. 06/03: No acute events overnight. Left IJ placed by IR. Defer to ID for antibiotic management for cultures of the catheter tip and yeast. 06/04: No overnight events afebrile. Sedated on propofol and Precedex. On vent with tracheostomy PEEP 5 FiO2 40%. Being treated for fungemia and receiving TPN. Left IJ CVC functioning well. HD catheter right. 06/05: Afebrile. Still requiring minimal sedation on propofol and Precedex. Requiring vent support via trach PEEP five FiO2 40%. KUB with less gaseous distention. No BM but bowel sounds are audible. 06/06: Afebrile. On minimal sedation with propofol and Precedex and vent support via trach PEEP 5 FiO2 40%. Still in A. fib on telemetry. Catheter tip no growth to date sputum with Mariya. Repeat blood cultures no growth to date 06/07: Afebrile. On minimal sedation propofol and Precedex with for trach PEEP 5 FiO2 40%. He is to be in A. fib. Hb 6.9. Will transfuse with dialysis today. Did have stool smear overnight 06/08: Afebrile. On minimal sedation propofol Precedex tolerated pressure support yesterday back on AC PEEP 5 FiO2 40% use more alert trying to pull out his tracheostomy successfully disconnected himself from the vent. Not easily redirectable. Admits for safety. In A. fib. Labs pending 06/09: Vomited large amount of tube feeding overnight and NG attached to low suction. Remains in A. fib. Minimal sedation with propofol and Precedex. Tolerated pressure support back on AC FiO2 40% PEEP 5 getting dialysis currently. Vitals/I&O Vitals/I&O: Vital Signs Date Time Temp Pulse Resp B/P (MAP) Pulse Ox O2 Delivery O2 Flow Rate FiO2 06/10/21 08:51 65 156/67 06/10/21 07:00 20 100 Ventilator 06/10/21 04:00 98.5 98.5 06/09/21 08:45 10.0 I & O 06/09/21 06/09/21 06/10/21 15:00 23:00 07:00 Intake Total 100 ml 1285 ml 421 ml Output Total 100 ml 190 ml 90 ml Balance 0 ml 1095 ml 331 ml Physical Exam Physical Exam: GENERAL: Well-developed and well-nourished male, sedated , on vent HEENT: Normocephalic, atraumatic, redness and erythema of both eyes improved, NG tube present NECK: right dialysis catheter present clean,central line changed ( 05/11) Trach + HEART: S1, S2.no gallop LUNGS: Decreased breath sounds. ABDOMEN: Less distended, bowel sounds present GENITOURINARY: Nieves in place. EXTREMITIES: Edema present. DERMATOLOGIC: Warm, dry, no generalized rash. NEUROLOGIC: Opens eyes PICC line clean General: Other (DROWSY) Heart: Regular rate, Normal S1, Normal S2, No murmurs, Gallops Lungs: Clear Abdomen: Normal bowel sounds, Other (ND) Extremities: Other (EDEMA) Skin: No rashes, No breakdown, No significant lesion Labs Labs: Laboratory Tests Test 06/09/21 12:45 06/09/21 18:05 06/10/21 00:22 06/10/21 06:25 Glucose (Fingerstick) 213 mg/dL (70-99) 230 mg/dL (70-99) 218 mg/dL (70-99) 205 mg/dL (70-99) Assessment and Plan Assessmemt and Plan Problems Medical Problems: (1) Elevated troponin Status: Acute (2) Person under investigation for COVID-19 Status: Acute (3) Pulmonary edema Status: Acute Comment Review of Relevant I have reviewed the following items juanita (where applicable) has been applied. Medications: Current Medications Medications (Trade) Dose Ordered Sig/Jodie Route PRN Reason Start Time Stop Time Status Last Admin Dose Admin Sodium Chloride 90 meq/Potassium Chloride 30 meq/ Potassium Phosphate 13.6 mmol/Magnesium Sulfate 12 meq/ Multivitamins 5 ml/Zinc/Copper/ Manganese/ Selenium 1 ml/ Total Parenteral Nutrition/Amino Acids/Dextrose/ Fat Emulsion Intravenous 1,440 ml @ 60 mls/hr TPN CONT IV 06/09/21 22:00 06/10/21 21:59 06/09/21 22:09 Insulin Human Lispro (HumaLOG) 0-9 UNITS Q6HRS SQ 06/09/21 18:00 06/10/21 06:26 Insulin Human Lispro (HumaLOG) 3 units Q6HRS SQ 06/09/21 18:00 06/10/21 06:27 Justifications for Admission General Conditions Altered mental status?: Yes Justification of admission: Patient has tachycardia (> 100 beats per minute) or hypotension (SBP < 90 mm Hg) leading to inadequate systemic perfusion as indicated by severe/persistent altered mental status. Other Justification ILDA BRIAN HARDING MD Jun 10, 2021 09:24
--- NOTE | 2021-06-10 09:39 | PDOC ---
PULMONARY PROGRESS NOTES DATE: 06/10/21 TIME: 09:38 Subjective This morning patient on assist control No overnight events Yesterday tolerated pressure support for a short period of time He is awake alert following commands Vitals Vital Signs Date Time Temp Pulse Resp B/P (MAP) Pulse Ox O2 Delivery O2 Flow Rate FiO2 06/10/21 08:51 65 156/67 06/10/21 07:00 20 100 Ventilator 06/10/21 04:00 98.5 98.5 06/09/21 08:45 10.0 Comments Tracheostomy ros unable to obtain sedated on vent General: No acute distress Lungs: Clear Cardiovascular: S1, S2 Abdomen: Soft, Other (Nontender) Neuro Exam: Alert Extremities: No Edema Skin: Warm Labs Laboratory Tests Test 06/08/21 11:30 06/08/21 18:15 06/09/21 00:05 06/09/21 06:05 Sodium Level 139 mmol/L (136-145) 138 mmol/L (136-145) Potassium Level 3.9 mmol/L (3.5-5.1) 4.2 mmol/L (3.5-5.1) Chloride Level 106 mmol/L (98-107) 106 mmol/L (98-107) Carbon Dioxide Level 29 mmol/L (21-32) 28 mmol/L (21-32) Anion Gap 4 (6-14) 4 (6-14) Blood Urea Nitrogen 31 mg/dL (8-26) 42 mg/dL (8-26) Creatinine 2.2 mg/dL (0.7-1.3) 2.6 mg/dL (0.7-1.3) Estimated GFR (Cockcroft-Gault) 35.6 29.3 Glucose Level 226 mg/dL (70-99) 298 mg/dL (70-99) Calcium Level 8.2 mg/dL (8.5-10.1) 8.4 mg/dL (8.5-10.1) Phosphorus Level 2.2 mg/dL (2.6-4.7) 2.9 mg/dL (2.6-4.7) Magnesium Level 2.1 mg/dL (1.8-2.4) 2.3 mg/dL (1.8-2.4) Glucose (Fingerstick) 182 mg/dL (70-99) 246 mg/dL (70-99) Test 06/09/21 06:07 06/09/21 12:45 06/09/21 18:05 06/10/21 00:22 Glucose (Fingerstick) 261 mg/dL (70-99) 213 mg/dL (70-99) 230 mg/dL (70-99) 218 mg/dL (70-99) Test 06/10/21 06:25 Glucose (Fingerstick) 205 mg/dL (70-99) Laboratory Tests Test 06/09/21 12:45 06/09/21 18:05 06/10/21 00:22 06/10/21 06:25 Glucose (Fingerstick) 213 mg/dL (70-99) 230 mg/dL (70-99) 218 mg/dL (70-99) 205 mg/dL (70-99) Medications Active Scripts Medications Dose Route/Sig Max Daily Dose Days Date Category Glyburide 2.5 Mg Tablet 1 Tab PO DAILY 04/19/21 Rx Polyethylene Glycol 3350 17 Gm Powd.pack 17 Gm PO DAILY 04/19/21 Rx Dok (Docusate Sodium) 100 Mg Capsule 100 Mg PO PRN DAILY PRN 30 04/19/21 Rx Bisacodyl 5 Mg Tablet. 5 Mg PO PRN DAILY PRN 04/19/21 Rx Acetaminophen 325 Mg Tablet 650 Mg PO PRN Q4HRS PRN 04/19/21 Rx Aspirin Ec (Aspirin) 81 Mg Tablet. 81 Mg PO [id number] 04/19/21 Rx Hydralazine Hcl 25 Mg Tablet 25 Mg PO QID 30 04/19/21 Rx Fenofibrate 54 Mg Tablet 1 Tab PO DAILY 04/17/21 Reported Potassium Chloride (Potassium Chloride) 20 Meq Tablet.er 20 Meq PO DAILY 04/17/21 Reported Coreg (Carvedilol) 12.5 Mg Tablet 37.5 Mg PO BIDWMEALS 04/17/21 Reported Rosuvastatin Calcium 40 Mg Tablet 40 Mg PO QHS 04/17/21 Reported Gabapentin (Gabapentin) 100 Mg Capsule 200 Mg PO BID 04/17/21 Reported Montelukast Sodium Tablet (Montelukast Sodium) 10 Mg Tablet 10 Mg PO HS 04/17/21 Reported Protonix (Pantoprazole Sodium) 20 Mg Tablet. 2 Tab PO DAILY 04/17/21 Reported Amlodipine Besylate 5 Mg Tablet 5 Mg PO DAILY 04/17/21 Reported Furosemide 40 Mg Tablet 1 Tab PO DAILY 04/17/21 Reported Proair Hfa Inhaler (Albuterol Sulfate) 8.5 Gm Hfa.aer.ad 2 Puff IH PRN Q4-6HRS PRN 21 04/16/21 Reported Advair 100-50 Diskus (Fluticasone/Salmeterol) 1 Each Disk.w.dev 1 Puff IH BID 04/16/21 Reported Comments Chest x-ray 06/04/2021 reviewed. Bilateral interstitial infiltrates and a small right lower lobe effusion con sistent with CHF. Impression . IMPRESSION: 1. Acute hypoxic respiratory failure, multifactorial/COVID-19 viral pneumonia/ARDS, ongoing, intubated 04/25/2021, now status post tracheostomy 05/15/[address] chest with bilateral diffuse interstitial infiltrates without any significant pleural effusion 3. Leukocytosis, sepsis--improved 4. Non-ST segment elevation GA 5. History of tobacco use, suspect COPD, unknown FEV1 6. Chronic kidney disease.== HD as needed per renal 7. Metabolic acidosis multifactorial, improved 8. Abnormal chest x-ray, compatible with ARDS CHF 9. Hypoglycemia, continue to monitor--- resolved 10. Hypotension, suspect volume deficit,/possible sepsis--- resolved 11. Fever--improved 12. Anemia--improved 13. Atrial fibrillation with rapid ventricular response, currently rate controlled 14. Ileus Plan . Updated 06/10 We will continue pressure support as tolerated throughout the day Continue support Follow GI input Ileus appears to be improving updated 06/09 Discussed with RN and RT, continue pressure support as tolerated Discussed with RN will initiate tube feeding 10 cc/h 3 hours on 3 hours off DVT GI prophylaxis Continue follow GI input On Diflucan Follow-up on cultures C. difficile PCR negative Updated 06/08 Discussed with RN Daily pressure support trials Defer PEG to GI service Continue current nutritional support Antibiotics per ID DVT GI prophylaxis Titrate sedation down ADELSO AVILA MD Jun 10, 2021 09:39
[2021-06-10] MEDS: TPN PER PHARMACY MC PRN (11:10)
--- NOTE | 2021-06-10 11:10 | NUR ---
Pharmacy TPN Dosing Note S: NILAM LAN is a 75 year old M Currently receiving Central Continuous TPN started 05/22/21 B:Pertinent PMH: ILEUS Height: 6 feet, 2 inches Weight: 138.5 kg Current diet: NPO LABS: Sodium: 138 Potassium: 4.2 Chloride: 106 Calcium: 8.4 Corrected Calcium: 10.32 Magnesium: 2.3 CO2: 28 SCr: 2.6 Glucose: 298, 261 Albumin: 1.6 AST: 27 ALT: 19 TPN FORMULA: TPN TYPE: Central Continuous AMINO ACIDS: 110 gm DEXTROSE: 295 gm LIPIDS: 40 gm SODIUM CHLORIDE: 90 mEq POTASSIUM CHLORIDE: 30 mEq POTASSIUM PHOSPHATE: 13.6 mmol MAGNESIUM: 12 mEq MULTIPLE VITAMIN: 5 ml TRACE ELEMENTS: 1 ml(s) TPN PLAN: No labs, continue same TPN. Tolerating 30 cc every 3 hours tube feed with minimal residuals overnight, abd more distended today. Checking KUB tomorrow. -CMP ordered for 06/11 R: Continue same TPN formula. Will monitor electrolytes, glucose, and tolerance to TPN. ANAYA LYNN RPH, 06/10/21 1111
--- NOTE | 2021-06-10 11:47 | PDOC ---
G I PROGRESS NOTE Subjective Trached, on ventilator. Objective Aware he vomited tube feeding; currently on trickle feeds. Only smears of stool. Physical Exam Lungs clear anteriorly. RRR Abdomen distended, silent, umbilical hernia. Review of Relevant I have reviewed the following items juanita (where applicable) has been applied. Labs Laboratory Tests Test 06/08/21 18:15 06/09/21 00:05 06/09/21 06:05 06/09/21 06:07 Glucose (Fingerstick) 182 mg/dL (70-99) 246 mg/dL (70-99) 261 mg/dL (70-99) Sodium Level 138 mmol/L (136-145) Potassium Level 4.2 mmol/L (3.5-5.1) Chloride Level 106 mmol/L (98-107) Carbon Dioxide Level 28 mmol/L (21-32) Anion Gap 4 (6-14) Blood Urea Nitrogen 42 mg/dL (8-26) Creatinine 2.6 mg/dL (0.7-1.3) Estimated GFR (Cockcroft-Gault) 29.3 Glucose Level 298 mg/dL (70-99) Calcium Level 8.4 mg/dL (8.5-10.1) Phosphorus Level 2.9 mg/dL (2.6-4.7) Magnesium Level 2.3 mg/dL (1.8-2.4) Test 06/09/21 12:45 06/09/21 18:05 06/10/21 00:22 06/10/21 06:25 Glucose (Fingerstick) 213 mg/dL (70-99) 230 mg/dL (70-99) 218 mg/dL (70-99) 205 mg/dL (70-99) Laboratory Tests Test 06/09/21 12:45 06/09/21 18:05 06/10/21 00:22 06/10/21 06:25 Glucose (Fingerstick) 213 mg/dL (70-99) 230 mg/dL (70-99) 218 mg/dL (70-99) 205 mg/dL (70-99) Microbiology 06/02/21 Gram Stain - Final, Complete 06/02/21 Aerobic Culture - Final, Complete 06/02/21 Blood Culture - Final, Complete NO GROWTH AFTER 5 DAYS 05/30/21 Gram Stain Evaluation - Final, Complete 05/30/21 Respiratory Culture - Final, Complete Vitals/I & O Vital Sign - Last 24 Hours 06/09/21 06/09/21 06/09/21 06/09/21 11:54 12:00 12:00 12:38 Temp 99.1 99.1 Pulse 72 73 Resp 19 B/P (MAP) 142/61 (88) 158/62 Pulse Ox 100 100 O2 Delivery Ventilator BiPAP/CPAP Mechanical Ventilator 06/09/21 06/09/21 06/09/21 06/09/21 13:00 13:19 14:00 15:00 Pulse 68 84 70 80 Resp 20 17 22 B/P (MAP) 163/70 (101) 158/62 179/72 (107) 184/79 (114) Pulse Ox 100 100 100 O2 Delivery BiPAP/CPAP BiPAP/CPAP BiPAP/CPAP 06/09/21 06/09/21 06/09/21 06/09/21 15:55 16:00 16:07 17:00 Temp 99.2 99.2 Pulse 86 64 Resp 22 22 B/P (MAP) 147/74 (98) 167/75 (105) Pulse Ox 100 100 100 O2 Delivery Ventilator BiPAP/CPAP Mechanical Ventilator BiPAP/CPAP 06/09/21 06/09/21 06/09/21 06/09/21 18:00 18:40 19:00 19:23 Pulse 76 70 68 Resp 22 22 20 B/P (MAP) 165/74 (104) 139/73 151/98 (115) Pulse Ox 100 100 100 O2 Delivery BiPAP/CPAP BiPAP/CPAP Ventilator 06/09/21 06/09/21 06/09/21 06/09/21 19:53 20:00 20:00 20:00 Temp 98.8 98.8 Pulse 84 Resp 20 22 B/P (MAP) 151/84 (106) Pulse Ox 100 100 100 O2 Delivery Mechanical Ventilator Vent--Pressure support Ventilator 06/09/21 06/09/21 06/09/21 06/09/21 21:00 22:00 23:00 23:00 Pulse 73 62 64 Resp 20 20 20 B/P (MAP) 178/83 (114) 161/77 (105) 160/78 (105) Pulse Ox 100 100 100 100 O2 Delivery Ventilator Ventilator Ventilator Ventilator 06/09/21 06/09/21 06/10/2121 23:59 23:59 00:19 01:00 Temp 99.2 99.2 Pulse 100 99 78 Resp 20 20 B/P (MAP) 184/87 (119) 184/87 166/75 (105) Pulse Ox 100 100 O2 Delivery Mechanical Ventilator Ventilator Ventilator 06/10/21 06/10/21 06/10/21 06/10/21 02:00 03:00 03:00 04:00 Pulse 62 61 Resp 20 20 B/P (MAP) 101/53 (69) 137/55 (82) Pulse Ox 100 100 100 O2 Delivery Ventilator Ventilator Ventilator Mechanical Ventilator 06/10/21 06/10/21 06/10/21 06/10/21 04:00 04:00 04:31 05:00 Temp 98.5 98.5 Pulse 55 58 Resp 20 20 20 20 B/P (MAP) 131/65 (87) 146/67 (93) Pulse Ox 100 100 100 100 O2 Delivery Ventilator Ventilator 06/10/21 06/10/21 06/10/21 06/10/21 05:00 06:00 06:18 07:00 Pulse 97 93 58 Resp 20 20 B/P (MAP) 138/59 (85) 138/59 139/82 (101) Pulse Ox 100 100 100 O2 Delivery Ventilator Ventilator Ventilator 06/10/21 06/10/21 06/10/21 06/10/21 08:00 08:00 08:51 09:00 Temp 98.4 98.4 Pulse 62 65 70 Resp 20 20 B/P (MAP) 156/67 (96) 156/67 167/74 (105) Pulse Ox 100 100 O2 Delivery Ventilator Mechanical Ventilator PS 10, PEEP 5 trial start 06/10/21 10:00 Pulse 54 Resp 20 B/P (MAP) 143/64 (90) Pulse Ox 100 O2 Delivery PS 10, PEEP 5 trial start Intake and Output 06/09/21 06/09/21 06/10/21 15:00 23:00 07:00 Intake Total 100 ml 1285 ml 421 ml Output Total 100 ml 190 ml 90 ml Balance 0 ml 1095 ml 331 ml Problem List Problems Medical Problems: (1) Elevated troponin Status: Acute (2) Person under investigation for COVID-19 Status: Acute (3) Pulmonary edema Status: Acute Assessment Ileus persists. Don't think we've tried Relistor. Plan of Care Note Will give one dose Relistor. Justicifation of Admission Dx: Justifications for Admission: Justification of Admission Dx: Yes Aspiration Pneumonia: Hemodynamic Instability CLINT PRICE MD Jun 10, 2021 11:47
[2021-06-10] MEDS ORDERED: METHYLNALTREXONE 12 MG/0.6 ML VIAL. SQ ONE (12:00)
--- NOTE | 2021-06-10 13:42 | PDOC ---
Infectious Disease Note Subjective Subjective off ventilator Discussed with nursing staff ROS ROS no n/v/d/ Vital Sign Vital Signs Vital Signs Date Time Temp Pulse Resp B/P (MAP) Pulse Ox O2 Delivery O2 Flow Rate FiO2 06/10/21 13:01 63 173/70 06/10/21 11:00 20 100 PS 10, PEEP 5 trial start 06/10/21 08:00 98.4 98.4 06/09/21 08:45 10.0 Physical Exam PHYSICAL EXAM GENERAL: awake and comfortable off vent HEENT: Normocephalic, atraumatic, redness and erythema of both eyes improved, NG tube present NECK: right dialysis catheter present clean,Lt neck central line changed ( 05/11) Trach + HEART: S1, S2.no gallop LUNGS: Decreased breath sounds. ABDOMEN: Less distended, bowel sounds present GENITOURINARY: Nieves in place. EXTREMITIES: Edema present. DERMATOLOGIC: Warm, dry, no generalized rash. NEUROLOGIC: Opens eyes PICC line clean Labs Lab Laboratory Tests Test 06/09/21 18:05 06/10/21 00:22 06/10/21 06:25 06/10/21 12:53 Glucose (Fingerstick) 230 mg/dL (70-99) 218 mg/dL (70-99) 205 mg/dL (70-99) 176 mg/dL (70-99) Micro BLOOD CULTURE LC Final Final FINAL ID= [MANDI PARAPSILOSIS] NO FURTHER WORKUP MANDI PARAPSILOSIS Unless otherwise specified, Testing Performed by: [address] [address] For Inquires, the Physician may contact the Microbiology department at [phone] Objective Assessment Fungemia May 30, 2021, C parapsilosis, 06/02 neg RT IJ central line removed cath tip sent for cult 1. Febrile illness resolved 2. Leukocytosis, was on steroids,ileus could contribute,improving 3. COVID-19 pneumonia. 4. Acute hypoxic respiratory failure status post intubation.Now S/P Trach 8/10 Pleural effusion 5. Congestive heart failure, acute on chronic. 6. Acute kidney injury on chronic kidney disease on hemodialysis. 7. Diabetes mellitus 2. 8. Atrial fibrillation. 9. Anemia. 10. Protein-calorie malnutrition. 11. Hypertention 12.Hyponatremia 13. Ileus, Bowel obstruction Peg TF on hold, OG to LIS 14.on PPN 15.Mild to Moderate Pleural effusion 16.Lt eye conjunctivitis resolved Plan Plan of Care Cont diflucan Monitor labs and cultures lines removed Repeat Bc remain negative Nieevs changed 05/30 C. difficile PCR negative Remains critically ill Continue supportive care Prognosis poor Discussed with nursing staff JAD RIVERO MD Jun 10, 2021 13:42
--- NOTE | 2021-06-10 21:00 | NUR ---
Patient found at change of shift with NG tube out. #16 NG placed at 65 at r nares. Patient immediately tried to remove NG again. Mitts placed on patient and KUB was ordered.
[2021-06-10] MEDS ORDERED: DEXTROSE 70% IV SCH (22:00)
[2021-06-10] MEDS ORDERED: [UNRECOGNIZED DRUG - OTHER] IV SCH (22:00)
[2021-06-10] MEDS ORDERED: TOTAL PARENTERAL NUTRITION IV SCH (22:00)
[2021-06-10] MEDS ORDERED: AMINO ACID IV SCH (22:00)
--- NOTE | 2021-06-10 22:56 | RAD ---
Exam: Abdomen one view INDICATION: NG tube placement TECHNIQUE: Supine view the abdomen Comparisons: None FINDINGS: Enteric tube with tip in the right upper quadrant likely within the distal stomach. Heart is mildly enlarged. Hazy bibasilar airspace disease and small bilateral pleural effusions. IMPRESSION: Lines and tubes described above. Electronically signed by: Noah Al MD (06/10/2021 10:53 PM) JOSE J
[2021-06-10] MEDS: MONTELUKAST SODIUM 10 MG TABLET. PO SCH (23:02)
[2021-06-10] MEDS: ATORVASTATIN CALCIUM 40 MG TABLET. PO SCH (23:02)
--- NOTE | 2021-06-10 23:30 | NUR ---
Patient very upset over new NG tube. Attempting to pull it out with mitts on. B/P elevated now. Diprivan started at a low rate to help keep patient from pulling out a second tube.
[2021-06-11] VITALS (24 sets, daily range): BP systolic 106–204; BP diastolic 52–100
[2021-06-11] MEDS: DEXMEDETOMIDINE 400 MCG in IV NORMAL SALINE 100ML 96 ML IV PRN ×5 (00:06→22:12)
[2021-06-11] MEDS: METOPROLOL IV PUSH 5 MG/5 ML VIAL. IVP SCH ×4 (00:13→18:29)
[2021-06-11] MEDS: PROPOFOL 100 ML IV PRN ×3 (00:18→22:48)
[2021-06-11] MEDS: INSULIN LISPRO 300 UNITS/3 ML VIAL. SQ SCH ×8 (00:56→18:31)
[2021-06-11 06:52] LABS: HEMATOCRIT 23.6 % (39.0-53.0); HEMOGLOBIN 7.8 g/dL (13.0-17.5); RED BLOOD COUNT 2.79 x10^6/uL (4.30-5.70); RED CELL DISTRIBUTION WIDTH 17.5 % (11.5-14.5); WHITE BLOOD COUNT 11.8 x10^3/uL (4.0-11.0)
[2021-06-11 07:27] LABS: ALBUMIN 1.7 g/dL (3.4-5.0); ALBUMIN/GLOBULIN RATIO 0.4 (1.0-1.7); CALCIUM 8.5 mg/dL (8.5-10.1); CREATININE 2.5 mg/dL (0.7-1.3); GFR 30.7; POTASSIUM 3.9 mmol/L (3.5-5.1); TOTAL BILIRUBIN 0.4 mg/dL (0.2-1.0); TOTAL PROTEIN 5.8 g/dL (6.4-8.2)
[2021-06-11] MEDS: ASPIRIN CHEWABLE 81 MG TABLET. PO SCH (08:35)
[2021-06-11] MEDS: FLUCONAZOLE 200MG/100ML PREMIX 100 ML IV SCH (08:36)
[2021-06-11] MEDS: PANTOPRAZOLE IV PUSH 40 MG VIAL. IVP SCH (08:36)
--- NOTE | 2021-06-11 08:38 | PDOC ---
Infectious Disease Note Subjective Subjective off ventilator Discussed with nursing staff ROS ROS No nausea vomiting diarrhea or abdominal pain Vital Sign Vital Signs Vital Signs Date Time Temp Pulse Resp B/P (MAP) Pulse Ox O2 Delivery O2 Flow Rate FiO2 06/11/21 07:00 54 18 144/61 (88) 100 Ventilator 06/11/21 04:00 98.1 98.1 06/10/21 17:28 10.0 Physical Exam PHYSICAL EXAM GENERAL: awake and comfortable off vent HEENT: Normocephalic, atraumatic, redness and erythema of both eyes improved, NG tube present NECK: right dialysis catheter present clean,Lt neck central line changed ( 05/11) Trach + HEART: S1, S2.no gallop LUNGS: Decreased breath sounds. ABDOMEN: Less distended, bowel sounds present GENITOURINARY: Nieves in place. EXTREMITIES: Edema present. DERMATOLOGIC: Warm, dry, no generalized rash. NEUROLOGIC: Opens eyes PICC line clean Labs Lab Laboratory Tests Test 06/10/21 12:53 06/10/21 17:40 06/11/21 00:52 06/11/21 06:15 Glucose (Fingerstick) 176 mg/dL (70-99) 188 mg/dL (70-99) 164 mg/dL (70-99) White Blood Count 11.8 x10^3/uL (4.0-11.0) Red Blood Count 2.79 x10^6/uL (4.30-5.70) Hemoglobin 7.8 g/dL (13.0-17.5) Hematocrit 23.6 % (39.0-53.0) Mean Corpuscular Volume 85 fL (79-100) Mean Corpuscular Hemoglobin 28 pg (25-35) Mean Corpuscular Hemoglobin Concent 33 g/dL (31-37) Red Cell Distribution Width 17.5 % (11.5-14.5) Platelet Count 300 x10^3/uL (140-400) Sodium Level 137 mmol/L (136-145) Potassium Level 3.9 mmol/L (3.5-5.1) Chloride Level 104 mmol/L (98-107) Carbon Dioxide Level 28 mmol/L (21-32) Anion Gap 5 (6-14) Blood Urea Nitrogen 43 mg/dL (8-26) Creatinine 2.5 mg/dL (0.7-1.3) Estimated GFR (Cockcroft-Gault) 30.7 BUN/Creatinine Ratio 17 (6-20) Glucose Level 126 mg/dL (70-99) Calcium Level 8.5 mg/dL (8.5-10.1) Total Bilirubin 0.4 mg/dL (0.2-1.0) Aspartate Amino Transf (AST/SGOT) 31 U/L (15-37) Alanine Aminotransferase (ALT/SGPT) 26 U/L (16-63) Alkaline Phosphatase 68 U/L (46-116) Total Protein 5.8 g/dL (6.4-8.2) Albumin 1.7 g/dL (3.4-5.0) Albumin/Globulin Ratio 0.4 (1.0-1.7) Test 06/11/21 06:16 Glucose (Fingerstick) 126 mg/dL (70-99) Micro BLOOD CULTURE LC Final Final FINAL ID= [MANDI PARAPSILOSIS] NO FURTHER WORKUP MANDI PARAPSILOSIS Unless otherwise specified, Testing Performed by: [address] [address] For Inquires, the Physician may contact the Microbiology department at [phone] Objective Assessment Fungemia May 30, 2021, C parapsilosis, 06/02 neg RT IJ central line removed cath tip sent for cult 1. Febrile illness resolved 2. Leukocytosis, was on steroids,ileus could contribute,improving 3. COVID-19 pneumonia. 4. Acute hypoxic respiratory failure status post intubation.Now S/P Trach 05/15 Pleural effusion 5. Congestive heart failure, acute on chronic. 6. Acute kidney injury on chronic kidney disease on hemodialysis. 7. Diabetes mellitus 2. 8. Atrial fibrillation. 9. Anemia. 10. Protein-calorie malnutrition. 11. Hypertention 12.Hyponatremia 13. Ileus, Bowel obstruction Peg TF on hold, OG to LIS 14.on PPN 15.Mild to Moderate Pleural effusion 16.Lt eye conjunctivitis resolved Plan Plan of Care Cont diflucan Monitor labs and cultures lines removed Repeat Bc remain negative Nieves changed 05/30 C. difficile PCR negative Remains critically ill Continue supportive care Prognosis poor Discussed with nursing staff JAD RIVERO MD Jun 11, 2021 08:37
[2021-06-11] MEDS: INSULIN GLARGINE SYRINGE. SQ SCH ×2 (08:50→21:07)
[2021-06-11] MEDS: NYSTATIN TOPICAL POWDER 15GM BOTTLE. TP SCH ×2 (08:51→21:00)
--- NOTE | 2021-06-11 10:47 | PDOC ---
PULMONARY PROGRESS NOTES DATE: 06/11/21 TIME: 10:44 Subjective Patient this morning switched over to trach shield, He is awake, follows no commands. Currently on TPN Vitals Vital Signs Date Time Temp Pulse Resp B/P (MAP) Pulse Ox O2 Delivery O2 Flow Rate FiO2 06/11/21 10:02 56 15 147/65 (92) 100 Tracheal Collar 06/11/21 08:00 97.9 97.9 06/10/21 17:28 10.0 Comments Tracheostomy ros unable to obtain General: No acute distress Lungs: Clear Cardiovascular: S1, S2 Abdomen: Soft, Other (Nontender) Neuro Exam: Alert Extremities: Other (1+ edema) Skin: Warm Labs Laboratory Tests Test 06/09/21 12:45 06/09/21 18:05 06/10/21 00:22 06/10/21 06:25 Glucose (Fingerstick) 213 mg/dL (70-99) 230 mg/dL (70-99) 218 mg/dL (70-99) 205 mg/dL (70-99) Test 06/10/21 12:53 06/10/21 17:40 06/11/21 00:52 06/11/21 06:15 Glucose (Fingerstick) 176 mg/dL (70-99) 188 mg/dL (70-99) 164 mg/dL (70-99) White Blood Count 11.8 x10^3/uL (4.0-11.0) Red Blood Count 2.79 x10^6/uL (4.30-5.70) Hemoglobin 7.8 g/dL (13.0-17.5) Hematocrit 23.6 % (39.0-53.0) Mean Corpuscular Volume 85 fL (79-100) Mean Corpuscular Hemoglobin 28 pg (25-35) Mean Corpuscular Hemoglobin Concent 33 g/dL (31-37) Red Cell Distribution Width 17.5 % (11.5-14.5) Platelet Count 300 x10^3/uL (140-400) Sodium Level 137 mmol/L (136-145) Potassium Level 3.9 mmol/L (3.5-5.1) Chloride Level 104 mmol/L (98-107) Carbon Dioxide Level 28 mmol/L (21-32) Anion Gap 5 (6-14) Blood Urea Nitrogen 43 mg/dL (8-26) Creatinine 2.5 mg/dL (0.7-1.3) Estimated GFR (Cockcroft-Gault) 30.7 BUN/Creatinine Ratio 17 (6-20) Glucose Level 126 mg/dL (70-99) Calcium Level 8.5 mg/dL (8.5-10.1) Total Bilirubin 0.4 mg/dL (0.2-1.0) Aspartate Amino Transf (AST/SGOT) 31 U/L (15-37) Alanine Aminotransferase (ALT/SGPT) 26 U/L (16-63) Alkaline Phosphatase 68 U/L (46-116) Total Protein 5.8 g/dL (6.4-8.2) Albumin 1.7 g/dL (3.4-5.0) Albumin/Globulin Ratio 0.4 (1.0-1.7) Test 06/11/21 06:16 Glucose (Fingerstick) 126 mg/dL (70-99) Laboratory Tests Test 06/10/21 12:53 06/10/21 17:40 06/11/21 00:52 06/11/21 06:15 Glucose (Fingerstick) 176 mg/dL (70-99) 188 mg/dL (70-99) 164 mg/dL (70-99) White Blood Count 11.8 x10^3/uL (4.0-11.0) Red Blood Count 2.79 x10^6/uL (4.30-5.70) Hemoglobin 7.8 g/dL (13.0-17.5) Hematocrit 23.6 % (39.0-53.0) Mean Corpuscular Volume 85 fL (79-100) Mean Corpuscular Hemoglobin 28 pg (25-35) Mean Corpuscular Hemoglobin Concent 33 g/dL (31-37) Red Cell Distribution Width 17.5 % (11.5-14.5) Platelet Count 300 x10^3/uL (140-400) Sodium Level 137 mmol/L (136-145) Potassium Level 3.9 mmol/L (3.5-5.1) Chloride Level 104 mmol/L (98-107) Carbon Dioxide Level 28 mmol/L (21-32) Anion Gap 5 (6-14) Blood Urea Nitrogen 43 mg/dL (8-26) Creatinine 2.5 mg/dL (0.7-1.3) Estimated GFR (Cockcroft-Gault) 30.7 BUN/Creatinine Ratio 17 (6-20) Glucose Level 126 mg/dL (70-99) Calcium Level 8.5 mg/dL (8.5-10.1) Total Bilirubin 0.4 mg/dL (0.2-1.0) Aspartate Amino Transf (AST/SGOT) 31 U/L (15-37) Alanine Aminotransferase (ALT/SGPT) 26 U/L (16-63) Alkaline Phosphatase 68 U/L (46-116) Total Protein 5.8 g/dL (6.4-8.2) Albumin 1.7 g/dL (3.4-5.0) Albumin/Globulin Ratio 0.4 (1.0-1.7) Test 06/11/21 06:16 Glucose (Fingerstick) 126 mg/dL (70-99) Medications Active Scripts Medications Dose Route/Sig Max Daily Dose Days Date Category Glyburide 2.5 Mg Tablet 1 Tab PO DAILY 04/19/21 Rx Polyethylene Glycol 3350 17 Gm Powd.pack 17 Gm PO DAILY 04/19/21 Rx Dok (Docusate Sodium) 100 Mg Capsule 100 Mg PO PRN DAILY PRN 30 04/19/21 Rx Bisacodyl 5 Mg Tablet.dr 5 Mg PO PRN DAILY PRN 04/19/21 Rx Acetaminophen 325 Mg Tablet 650 Mg PO PRN Q4HRS PRN 04/19/21 Rx Aspirin Ec (Aspirin) 81 Mg Tablet.dr 81 Mg PO DAILYWBKFT 04/19/21 Rx Hydralazine Hcl 25 Mg Tablet 25 Mg PO QID 04/19/21 Rx Fenofibrate 54 Mg Tablet 1 Tab PO DAILY 04/17/21 Reported Potassium Chloride (Potassium Chloride) 20 Meq Tablet.er 20 Meq PO DAILY 04/17/21 Reported Coreg (Carvedilol) 12.5 Mg Tablet 37.5 Mg PO BIDWMEALS 04/17/21 Reported Rosuvastatin Calcium 40 Mg Tablet 40 Mg PO QHS 04/17/21 Reported Gabapentin (Gabapentin) 100 Mg Capsule 200 Mg PO BID 04/17/21 Reported Montelukast Sodium Tablet (Montelukast Sodium) 10 Mg Tablet 10 Mg PO HS 04/17/21 Reported Protonix (Pantoprazole Sodium) 20 Mg Tablet.dr 2 Tab PO DAILY 04/17/21 Reported Amlodipine Besylate 5 Mg Tablet 5 Mg PO DAILY 04/17/21 Reported Furosemide 40 Mg Tablet 1 Tab PO DAILY 04/17/21 Reported Proair Hfa Inhaler (Albuterol Sulfate) 8.5 Gm Hfa.aer.ad 2 Puff IH PRN Q4-6HRS PRN 21 04/16/21 Reported Advair 100-50 Diskus (Fluticasone/Salmeterol) 1 Each Disk.w.dev 1 Puff IH BID 04/16/21 Reported Comments Impression . IMPRESSION: 1. Acute hypoxic respiratory failure, multifactorial/COVID-19 viral pneumonia/ARDS, ongoing, intubated 04/25/2021, now status post tracheostomy 05/15/[address] chest with bilateral diffuse interstitial infiltrates without any significant pleural effusion 3. Leukocytosis, sepsis--improved 4. Non-ST segment elevation NE 5. History of tobacco use, suspect COPD, unknown FEV1 6. Chronic kidney disease.== HD as needed per renal 7. Metabolic acidosis multifactorial, improved 8. Abnormal chest x-ray, compatible with ARDS CHF 9. Hypoglycemia, continue to monitor--- resolved 10. Hypotension, suspect volume deficit,/possible sepsis--- resolved 11. Fever--improved 12. Anemia--improved 13. Atrial fibrillation with rapid ventricular response, currently rate controlled 14. Ileus 15. Type 2 diabetes 16. A. fib Plan . Updated 06/11 Continue IV Diflucan per ID Monitor labs and cultures Continue trach shield as tolerated, AC vent Monitor chest x-ray DVT GI prophylaxis Nutritional support per GI, patient with ileus appears to be clinically improving Total cumulative critical care time of 30 minutes with no overlap updated 06/10 We will continue pressure support as tolerated throughout the day Continue support Follow GI input Ileus appears to be improving updated 06/09 Discussed with RN and RT, continue pressure support as tolerated Discussed with RN will initiate tube feeding 10 cc/h 3 hours on 3 hours off DVT GI prophylaxis Continue follow GI input On Diflucan Follow-up on cultures C. difficile PCR negative ADELSO AVILA MD Jun 11, 2021 10:47
[2021-06-11] MEDS: TPN PER PHARMACY MC PRN (12:19)
--- NOTE | 2021-06-11 12:20 | NUR ---
Pharmacy TPN Dosing Note S: NILAM LAN is a 75 year old M Currently receiving Central Continuous TPN started 05/22/21 B:Pertinent PMH: ILEUS Height: 6 feet, 2 inches Weight: 139.5 kg Current diet: NPO LABS: Sodium: 137 Potassium: 3.9 Chloride: 104 Calcium: 8.5 Corrected Calcium: 10.34 Magnesium: 2.3 CO2: 28 SCr: 2.5 Glucose: 126-164 Albumin: 1.7 AST: 31 ALT: 26 TPN FORMULA: TPN TYPE: Central Continuous AMINO ACIDS: 110 gm DEXTROSE: 295 gm LIPIDS: 40 gm SODIUM CHLORIDE: 90 mEq POTASSIUM CHLORIDE: 30 mEq POTASSIUM PHOSPHATE: 13.6 mmol MAGNESIUM: 12 mEq MULTIPLE VITAMIN: 5 ml TRACE ELEMENTS: 1 ml(s) TPN PLAN: No changes, low dose propofol started overnight, continue lipids in TPN. -BMP, Mag and Phos in AM. R: Continue same TPN formula. Will monitor electrolytes, glucose, and tolerance to TPN. ANAYA LYNN RPH, 06/11/21 1225
--- NOTE | 2021-06-11 13:56 | PDOC ---
[employer] PROGRESS NOTE Date of Service DOS: DATE: 06/11/21 TIME: 13:45 Chief Complaint Chief Complaint Respiratory failure requiring intubation COVID-19 Acute [place] A. fib SIRS Hypertension with hypertensive urgency Hyperlipidemia CKD Diabetes History of bilateral subclavian stenosis History of marijuana use Severe protein calorie malnutrition Trach placed on May 15 GI consulted for PEG evaluation --> patient with a lot of vomiting yesterday thus current NG tube to low intermittent suction Anemia secondary to acute blood loss, possible multiple lab draws and related to advanced CKD Positive yeast on 1 out of 4 bottles on blood cultures History of Present Illness History of Present Illness 06/10: Tolerating 30 cc every 3 hours tube feed with minimal residuals overnight. Remains in A. fib. Abdomen appears a bit more distended, soft. Minimally sedated propofol Precedex on SITE LEAD FiO2 40% PEEP 5. CC time 31 min spent in reviewing chart, labs, and images. Discussed with RN and SW. Mr Cunha is a 75 yo male w/ PMHx CAD, HTN, Hyperlipidemia, subclavian steel syndrome, subclavian stenosis s/p left subclavian sent placement complicated by retroperitoneal hematoma s/p evacuation in 08/2015), asthma, BART, CKD, DM2 who presented from home with home health care noted that he was short of breath and valverde with O2 saturations less than 89% as low as 84% not improved with nasal cannulated oxygen placed on CPAP and brought to ED for further care. He was just discharged from the hospital a week ago on April 19, 2021 for abdominal pain and was going for further cardiac testing with outpatient stress testing scheduled on May 28, 2021. Had echocardiogram April 17, 2021 with normal-appearing EF with moderate concentric LVH no significant valvular abnormalities. WBC 20, Hb 10.7, platelets 268, NA 140, K3.8, BUN 21, CR 2.9, glucose 162, albumin 3, troponin I 1.372, NT proBNP 33,318. EKG appears sinus tachycardia rate of 105 bpm with multiple PACs small ST depressions in lead II and V5. TWI in V6. Chest radiograph with diffuse interstitial and alveolar opacities and ET tube 5.8 cm above the leilani. Due to worsening respiratory status ED physician elected to intubate patient. Seen postintubation. Blood pressure little low after propofol bolus, but improved. Significant white frothy sputum per ET tube. Admitted to ICU for further care 04/25: On vent FiO2 50, PEEP 5. Febrile, T-max 103.3. Patient was initiated on cooling blankets. Procalcitonin 0.13. 04/26: COVID-19 positive. Febrile overnight that was managed with cooling blankets. On vent with FiO2 50%, PEEP 5. Per cardiology, elevated troponins likely secondary to demand ischemia; continue heparin drip per cardiology. Continue treatment with remdesivir, steroids, and antibiotics. 04/27: Afebrile. Vent with FiO2 50%, PEEP 5. Troponin 2.8 yesterday; probable type II, demand ischemia. New onset A. fib. Cont heparin gtt and prn digoxin, per cardiology. Contnue treatment with remdesivir, steroids, and prophylactic antibiotics. BG 323 this morning; will add basal insulin. 04/28: Afebrile. FiO2 50%, PEEP 5. Nontunneled HD catheter placed yesterday due to worsening kidney function; eGFR 16 (CKD4). Chest x-ray showed unchanged interstitial opacities. Continue empiric antibiotics, steroids, and remdesivir. Continue heparin infusion, for new dx A. fib. 04/29: Afebrile, remains on vent at FiO2 45%, PEEP 5. WBC 20.4. Hemodialysis per nephrology. We will continue treatment with empiric antibiotics, remdesivir, and steroids. Continue heparin infusion and supportive care. 04/30: Patient seen and examined in the [facility]- ICU. He remains on the vent. AC/20/500/40 5% with 5 PEEP. Currently on dialysis. Has OG feeds running. Has a Nieves to bedside drainage. Sedated with propofol and fentanyl. He remains critically ill 05/01: Patient seen and examined in the [facility]- ICU. He is still intubated. AC/20/500/40 percent with 5 of PEEP. In A. fib. Sedated with propofol fentanyl and Versed. Has a heparin drip 05/02: Patient seen and examined in the [facility]- ICU. He is sedated with propofol fentanyl and Versed. AC/20/500/40 percent with 5 of PEEP. He remains critically ill 05/03: Patient seen and examined in the [facility]- ICU. He is still intubated. AC/20/500/70 percent with 5 of PEEP. Sedated with fentanyl Versed and propofol. Remains critically ill 05/04: Patient seen and examined in the [place] [address] ICU. Still intubated. Sedated with propofol and fentanyl. AC/20/500/70 percent with 5 of PEEP. On dialysis currently 05/05: Patient seen and examined in the [place] [address] ICU. He remains on the vent. AC/20/500/40 percent with 5 of PEEP. He remains critically ill 05/06: Patient seen and examined in the [place] [address] ICU. He remains mechanically ventilated. AC/20/500/40 05/07: Patient seen and examined in the [place] [address] ICU. He remains mechanically ventilated. ILDA on CKD - ATN 2/2 sepsis/ Hypotension,UOP good,on IV Lasix ; requiring dialysis, . AC/20/500/40 percent with 5 of PEEP. Sedated with propofol Dex and fentanyl 05/08: Currently on 40%, 5 of PEEP. now on cardene gtt. Patient seen and examined in the [place] [id number] ICU. 05/09: VENT [id number]%, 5 of PEEP. Mild pulmonary edema with new small right pleural effusion and basilar opacities. Change central line and send cath tip for cultures. 05/10: VENT [id number]%, 5 of PEEP. Mild pulmonary edema with new small right pleural effusion and basilar opacities. Patient seen and examined in the [place] [id number] ICU 05/11: Continue iv cefepime , add zyvox, sputum culture 05/12: Continue iv cefepime , add zyvox, sputum culture. VENT lbhreos15%, 5 of PEEP. now on cardene gtt prn 05/13: Did not tolerate sedation vacation 05/11/2021, profoundly hypertensive. ABG/CXR--changes as needed. Continue iv cefepime , add zyvox, sputum culture. VENT [id number]%, 5 of PEEP. Mild pulmonary edema with new small right pleural effusion and basilar opacities. now on cardene gtt prn 05/14: Patient seen and examined at bedside. Remains intubated and sedated planning for tracheostomy tomorrow. Continue current respiratory support; continue antibiotics, continue sedation. Follow recommendations of pulmonary, renal, and infectious disease 05/15: Patient seen and examined at bedside. Remains intubated and sedated planning for tracheostomy today. Continue current respiratory support; continue antibiotics, continue sedation. 05/16: Patient seen and examined at bedside. Underwent tracheostomy yesterday today tolerated well. When seen this morning patient is still notably sedated respiratory status is stable. measures. 05/17: Patient seen and examined at bedside. Attempting to wean sedation. Patient with some diarrhea. Per infectious disease will give erythromycin eye ointment for eye lesions. Nephro and pulm also following. 05/18: Patient seen and examined at bedside. Attempting to increase tube feeds, GI consulted for PEG evaluation. Otherwise no major clinical changes. Continue to wean sedation. Plan of care discussed with bedside nurse. 05/19: Patient seen and examined at bedside. Apparently had a fair bit of vomiting overnight. GI following for PEG evaluation. Otherwise patient remained stable. Plan of care discussed with bedside nurse. 05/20: Patient seen and examined at bedside. Again had multiple bouts of vomiting yesterday. GI continuing to follow for PEG evaluation although on hold right now due to persistent vomiting. Leukocytosis 05/21: Afebrile, no acute events overnight. Remains on vent, FiO2 40%, PEEP 5. S/P tracheostomy on 05/15/2021. KUB on 05/19/2021 consistent with ileus. Per GI, continue NG tube to suction and parenteral nutrition for now. Continue IV antibiotics, per ID. Continue hemodialysis 05/22: Afebrile. On vent with FiO2 40%, PEEP 5. Excessive NG output. Continue NG tube to suction for now; PEG on hold for now. Continue hemodialysis, per nephrology. Continue IV antibiotics, per ID. 05/23: Afebrile. Vent with FiO2 40%, PEEP 5. NG tube for 635 mL out overnight. Continue NG tube to suction. HD 05/24: No acute events overnight. Afebrile. NG tube output has decreased. Ki dney function appears stable. Continue IV antibiotics, per ID. Patient has been accepted to [facility], pending insurance authorization. 05/25: Afebrile. On vent with FiO2 40%, PEEP 5. Hemoglobin 8.6 yesterday, hemoglobin 7.3 today. Reportedly had HD yesterday. Continue IV antibiotics, per ID; WBC possibly reactive to ileus. Has been accepted at [facility]; transfer pending, but will need PEG tube placement prior. 05/26: Afebrile. On vent with FiO2 40%, PEEP 5. Hemoglobin 7.3 yesterday, and hemoglobin 7.2 today; continue to trend. Leukocytosis slightly improved, WBC 12.9 today. Has been accepted at [facility]; transfer pending, but will need PEG tube placement prior. 05/27: Afebrile. On vent with FiO2 40%, PEEP 5. Hemoglobin remains stable at 7.2 today; continue to trend. WBC 13.4. Kidney function appears to be stabilized. LTAC transfer is pending PEG tube placement. Off meropenem; will continue to monitor. Kidney function appears to be stable. 05/28: No acute events overnight. Patient doing well on trach with settings of 40% FiO2 and PEEP of 8. Pending PEG placement after ileus is resolved will defer this to GI for timing of PEG placement.. Also pending tunneled catheter placement for dialysis. 05/29: No acute events or night. Patient tolerating trach collar humidified. Saturating at 99%. Pending PICC line placement and IJ central line removal. Per ID. Possibly in not needing HD. Making urine adequately with Lasix as needed. 05/30: No acute events overnight. Patient doing well on trach collar. Hemoglobin decreased down to 6.7 pending 1 unit PRBC transfusion. Restarted on linezolid and Flagyl and cefepime. Pending PICC placement and central line IJ removal. 05/31: No acute events overnight. Patient saturating 100% on trach collar. Hemoglobin improved after 1 unit PRBC transfusion to 8.4. Patient is currently undergoing dialysis and his labs have been stable. Patient's chart, labs, images were reviewed and discussed with RN 06/01: No acute events overnight. Patient saturating well on trach collar. Patient seen and examined bedside and on HD. Hemoglobin trended down from 8.4- 7.3. Afebrile in the last 24 hours. Patient's chart, labs, images were reviewed and discussed with RN 06/02: No acute events overnight. Patient saturating 100% on trach collar. Tmax 100.3. Yeast 1 of 4 bottles on blood cultures. Plan to remove central line and dialysis catheter. Family consideration for tunneled catheterization possibly hold. Micafungin was started per ID. 06/03: No acute events overnight. Left IJ placed by IR. Defer to ID for antibiotic management for cultures of the catheter tip and yeast. 06/04: No overnight events afebrile. Sedated on propofol and Precedex. On vent with tracheostomy PEEP 5 FiO2 40%. Being treated for fungemia and receiving TPN. Left IJ CVC functioning well. HD catheter right. 06/05: Afebrile. Still requiring minimal sedation on propofol and Precedex. Requiring vent support via trach PEEP five FiO2 40%. KUB with less gaseous distention. No BM but bowel sounds are audible. 06/06: Afebrile. On minimal sedation with propofol and Precedex and vent support via trach PEEP 5 FiO2 40%. Still in A. fib on telemetry. Catheter tip no growth to date sputum with Mariya. Repeat blood cultures no growth to date 06/07: Afebrile. On minimal sedation propofol and Precedex with for trach PEEP 5 FiO2 40%. He is to be in A. fib. Hb 6.9. Will transfuse with dialysis today. Did have stool smear overnight 06/08: Afebrile. On minimal sedation propofol Precedex tolerated pressure support yesterday back on AC PEEP 5 FiO2 40% use more alert trying to pull out his tracheostomy successfully disconnected himself from the vent. Not easily redirectable. Admits for safety. In A. fib. Labs pending 06/09: Vomited large amount of tube feeding overnight and NG attached to low suction. Remains in A. fib. Minimal sedation with propofol and Precedex. Tolerated pressure support back on AC FiO2 40% PEEP 5 getting dialysis currently. 06/11/2021: Patient seen and examined in the ICU. Mitts on for patient safety. Sedated with dexmedetomidine, propofol, and fentanyl. IV TPN hanging. NG tube running at 10 mL per hour. Currently on trach shield 10L. Discussed with RN. Chart reviewed. Vitals/I&O Vitals/I&O: Vital Signs Date Time Temp Pulse Resp B/P (MAP) Pulse Ox O2 Delivery O2 Flow Rate FiO2 06/11/21 13:00 56 17 106/52 (70) 100 Tracheal Collar 06/11/21 12:55 10.0 06/11/21 12:00 98.3 98.3 I & O 06/10/21 06/10/21 06/11/21 15:00 23:00 07:00 Intake Total 1173 ml 1233 ml Output Total 90 ml 240 ml 190 ml Balance -90 ml 933 ml 1043 ml Physical Exam Physical Exam: GENERAL: awake and comfortable off vent HEENT: Normocephalic, atraumatic, redness and erythema of both eyes improved, NG tube present NECK: right dialysis catheter present clean,Lt neck central line changed ( 05/11) Trach + HEART: S1, S2.no gallop LUNGS: Decreased breath sounds. ABDOMEN: Less distended, bowel sounds present GENITOURINARY: Nieves in place. EXTREMITIES: Edema present. DERMATOLOGIC: Warm, dry, no generalized rash. NEUROLOGIC: Opens eyes PICC line clean General: Other (DROWSY) Heart: Regular rate, Normal S1, Normal S2, No murmurs, Gallops Lungs: Clear Abdomen: Normal bowel sounds, Other (ND) Extremities: Other (EDEMA) Skin: No rashes, No breakdown, No significant lesion Labs Labs: Laboratory Tests Test 06/10/21 17:40 06/11/21 00:52 06/11/21 06:15 06/11/21 06:16 Glucose (Fingerstick) 188 mg/dL (70-99) 164 mg/dL (70-99) 126 mg/dL (70-99) White Blood Count 11.8 x10^3/uL (4.0-11.0) Red Blood Count 2.79 x10^6/uL (4.30-5.70) Hemoglobin 7.8 g/dL (13.0-17.5) Hematocrit 23.6 % (39.0-53.0) Mean Corpuscular Volume 85 fL (79-100) Mean Corpuscular Hemoglobin 28 pg (25-35) Mean Corpuscular Hemoglobin Concent 33 g/dL (31-37) Red Cell Distribution Width 17.5 % (11.5-14.5) Platelet Count 300 x10^3/uL (140-400) Sodium Level 137 mmol/L (136-145) Potassium Level 3.9 mmol/L (3.5-5.1) Chloride Level 104 mmol/L (98-107) Carbon Dioxide Level 28 mmol/L (21-32) Anion Gap 5 (6-14) Blood Urea Nitrogen 43 mg/dL (8-26) Creatinine 2.5 mg/dL (0.7-1.3) Estimated GFR (Cockcroft-Gault) 30.7 BUN/Creatinine Ratio 17 (6-20) Glucose Level 126 mg/dL (70-99) Calcium Level 8.5 mg/dL (8.5-10.1) Total Bilirubin 0.4 mg/dL (0.2-1.0) Aspartate Amino Transf (AST/SGOT) 31 U/L (15-37) Alanine Aminotransferase (ALT/SGPT) 26 U/L (16-63) Alkaline Phosphatase 68 U/L (46-116) Total Protein 5.8 g/dL (6.4-8.2) Albumin 1.7 g/dL (3.4-5.0) Albumin/Globulin Ratio 0.4 (1.0-1.7) Test 06/11/21 12:04 Glucose (Fingerstick) 137 mg/dL (70-99) Review of Systems Review of Systems: Gastrointestinal: No nausea or vomiting. Eyes: No loss of vision or blurry vision. Assessment and Plan Assessmemt and Plan Problems Medical Problems: (1) Elevated troponin Status: Acute (2) Person under investigation for COVID-19 Status: Acute (3) Pulmonary edema Status: Acute Respiratory failure requiring intubation COVID-19 Acute [place] A. fib SIRS Hypertension with hypertensive urgency Hyperlipidemia CKD Diabetes History of bilateral subclavian stenosis History of marijuana use Severe protein calorie malnutrition Trach placed on May 15 GI consulted for PEG evaluation --> patient with a lot of vomiting yesterday thus current NG tube to low intermittent suction Anemia secondary to acute blood loss, possible multiple lab draws and related to advanced CKD Positive yeast on 1 out of 4 bottles on blood cultures Plan: 1) ICU monitoring 2) Continue trach shield (started on 06/10) 3) Continue IV sedation with dexmedetomidine, propofol, and fentanyl 4) Appreciate subspecialty consult: - Pulmonology (06/11): Continue IV Diflucan per ID. Monitor labs and cultures. Continue trach shield as tolerated, AC vent. Monitor chest x-ray. DVT GI prophylaxis. Nutritional support per GI, patient with ileus appears to be clinically improving - ID (06/11): Cont diflucan. Monitor labs and cultures. lines removed. Repeat Bc remain negative. Nieves changed 05/30. C. difficile PCR negative. Remains critically ill. 5) Continue IV TPN 6) SCD for DVT prophylaxis 7) Prognosis guarded CC time 31 minutes Comment Review of Relevant I have reviewed the following items juanita (where applicable) has been applied. Medications: Current Medications Medications (Trade) Dose Ordered Sig/Jodie Route PRN Reason Start Time Stop Time Status Last Admin Dose Admin Sodium Chloride 90 meq/Potassium Chloride 30 meq/ Potassium Phosphate 13.6 mmol/Magnesium Sulfate 12 meq/ Multivitamins 5 ml/Zinc/Copper/ Manganese/ Selenium 1 ml/ Total Parenteral Nutrition/Amino Acids/Dextrose/ Fat Emulsion Intravenous 1,440 ml @ 60 mls/hr TPN CONT IV 06/10/21 22:00 06/11/21 21:59 06/10/21 22:29 Justifications for Admission General Conditions Altered mental status?: Yes Justification of admission: Patient has tachycardia (> 100 beats per minute) or hypotension (SBP < 90 mm Hg) leading to inadequate systemic perfusion as indicated by severe/persistent altered mental status. Other Justification ELENI RENTERIA III DO Jun 11, 2021 13:56
[2021-06-11] MEDS: hydrALAZINE 20 MG/ML VIAL. IVP PRN (21:08)
[2021-06-11] MEDS: ATORVASTATIN CALCIUM 40 MG TABLET. PO SCH (21:08)
[2021-06-11] MEDS: MONTELUKAST SODIUM 10 MG TABLET. PO SCH (21:08)
[2021-06-11] MEDS ORDERED: DEXTROSE 70% IV SCH (22:00)
[2021-06-11] MEDS ORDERED: [UNRECOGNIZED DRUG - OTHER] IV SCH (22:00)
[2021-06-11] MEDS ORDERED: AMINO ACID IV SCH (22:00)
[2021-06-11] MEDS ORDERED: TOTAL PARENTERAL NUTRITION IV SCH (22:00)
[2021-06-12] VITALS (24 sets, daily range): BP systolic 96–164; BP diastolic 52–119
[2021-06-12] MEDS: METOPROLOL IV PUSH 5 MG/5 ML VIAL. IVP SCH ×4 (00:54→17:05)
[2021-06-12] MEDS: DEXMEDETOMIDINE 400 MCG in IV NORMAL SALINE 100ML 96 ML IV PRN ×6 (02:09→23:06)
[2021-06-12] MEDS: INSULIN LISPRO 300 UNITS/3 ML VIAL. SQ SCH ×8 (06:30→17:51)
[2021-06-12 06:44] LABS: BASO # 0.2 x10^3/uL (0.0-0.2); BASO % 2 % (0-3); EOS # 1.4 x10^3/uL (0.0-0.7); EOS % 13 % (0-3); HEMATOCRIT 23.2 % (39.0-53.0); HEMOGLOBIN 7.7 g/dL (13.0-17.5); LYMPH # 2.6 x10^3/uL (1.0-4.8); LYMPH % 25 % (24-48); MEAN CORPUSCULAR HEMOGLOBIN 28 pg (25-35); MEAN CORPUSCULAR HGB CONC 33 g/dL (31-37); MEAN CORPUSCULAR VOLUME 86 fL (79-100); MONO # 1.3 x10^3/uL (0.0-1.1); MONO % 12 % (0-9); NEUT # 5.1 x10^3/uL (1.8-7.7); NEUT % 48 % (31-73); PLATELET COUNT 303 x10^3/uL (140-400); RED BLOOD COUNT 2.71 x10^6/uL (4.30-5.70); RED CELL DISTRIBUTION WIDTH 17.1 % (11.5-14.5); WHITE BLOOD COUNT 10.6 x10^3/uL (4.0-11.0)
[2021-06-12 06:54] LABS: CALCIUM 8.2 mg/dL (8.5-10.1); CREATININE 2.5 mg/dL (0.7-1.3); GFR 30.7; MAGNESIUM 2.5 mg/dL (1.8-2.4); PHOSPHORUS 4.4 mg/dL (2.6-4.7)
--- NOTE | 2021-06-12 08:01 | PDOC ---
Infectious Disease Note Subjective Subjective On vent mainly at night Discussed with nursing staff ROS ROS No nausea vomiting diarrhea Vital Sign Vital Signs Vital Signs Date Time Temp Pulse Resp B/P (MAP) Pulse Ox O2 Delivery O2 Flow Rate FiO2 06/12/21 07:00 48 16 125/57 (79) 100 Ventilator 06/12/21 04:00 97.9 97.9 06/12/21 00:11 10.0 Physical Exam PHYSICAL EXAM GENERAL: awake and comfortable off vent HEENT: Normocephalic, atraumatic, redness and erythema of both eyes improved, NG tube present NECK: right dialysis catheter present clean,Lt neck central line changed ( 05/11) Trach + HEART: S1, S2.no gallop LUNGS: Decreased breath sounds. ABDOMEN: Less distended, bowel sounds present GENITOURINARY: Nieves in place. EXTREMITIES: Edema present. DERMATOLOGIC: Warm, dry, no generalized rash. NEUROLOGIC: Opens eyes PICC line clean Labs Lab Laboratory Tests Test 06/11/21 12:04 06/11/21 17:41 06/12/21 00:41 06/12/21 06:20 Glucose (Fingerstick) 137 mg/dL (70-99) 174 mg/dL (70-99) 134 mg/dL (70-99) White Blood Count 10.6 x10^3/uL (4.0-11.0) Red Blood Count 2.71 x10^6/uL (4.30-5.70) Hemoglobin 7.7 g/dL (13.0-17.5) Hematocrit 23.2 % (39.0-53.0) Mean Corpuscular Volume 86 fL (79-100) Mean Corpuscular Hemoglobin 28 pg (25-35) Mean Corpuscular Hemoglobin Concent 33 g/dL (31-37) Red Cell Distribution Width 17.1 % (11.5-14.5) Platelet Count 303 x10^3/uL (140-400) Neutrophils (%) (Auto) 48 % (31-73) Lymphocytes (%) (Auto) 25 % (24-48) Monocytes (%) (Auto) 12 % (0-9) Eosinophils (%) (Auto) 13 % (0-3) Basophils (%) (Auto) 2 % (0-3) Neutrophils # (Auto) 5.1 x10^3/uL (1.8-7.7) Lymphocytes # (Auto) 2.6 x10^3/uL (1.0-4.8) Monocytes # (Auto) 1.3 x10^3/uL (0.0-1.1) Eosinophils # (Auto) 1.4 x10^3/uL (0.0-0.7) Basophils # (Auto) 0.2 x10^3/uL (0.0-0.2) Sodium Level 142 mmol/L (136-145) Potassium Level 4.0 mmol/L (3.5-5.1) Chloride Level 108 mmol/L (98-107) Carbon Dioxide Level 27 mmol/L (21-32) Anion Gap 7 (6-14) Blood Urea Nitrogen 53 mg/dL (8-26) Creatinine 2.5 mg/dL (0.7-1.3) Estimated GFR (Cockcroft-Gault) 30.7 Glucose Level 180 mg/dL (70-99) Calcium Level 8.2 mg/dL (8.5-10.1) Phosphorus Level 4.4 mg/dL (2.6-4.7) Magnesium Level 2.5 mg/dL (1.8-2.4) Test 06/12/21 06:28 Glucose (Fingerstick) 181 mg/dL (70-99) Micro BLOOD CULTURE LC Final Final FINAL ID= [MANDI PARAPSILOSIS] NO FURTHER WORKUP MANDI PARAPSILOSIS Unless otherwise specified, Testing Performed by: [address] [id number] For Inquires, the Physician may contact the Microbiology department at [phone] Objective Assessment Fungemia May 30, 2021, C parapsilosis, 06/02 neg RT IJ central line removed cath tip sent for cult 1. Febrile illness resolved 2. Leukocytosis, was on steroids,ileus could contribute,improving 3. COVID-19 pneumonia. 4. Acute hypoxic respiratory failure status post intubation.Now S/P Trach 8/10 Pleural effusion 5. Congestive heart failure, acute on chronic. 6. Acute kidney injury on chronic kidney disease on hemodialysis. 7. Diabetes mellitus 2. 8. Atrial fibrillation. 9. Anemia. 10. Protein-calorie malnutrition. 11. Hypertention 12.Hyponatremia 13. Ileus, Bowel obstruction Peg TF on hold, OG to LIS 14.on PPN 15.Mild to Moderate Pleural effusion 16.Lt eye conjunctivitis resolved Plan Plan of Care Cont diflucan Monitor labs and cultures lines removed Repeat Bc remain negative from 06/02 Nieves changed 05/30 C. difficile PCR negative Remains critically ill Continue supportive care Prognosis poor Discussed with nursing staff JAD RIVERO MD Jun 12, 2021 08:01
--- NOTE | 2021-06-12 08:23 | PDOC ---
PULMONARY PROGRESS NOTES DATE: 06/12/21 TIME: 08:23 Subjective Patient currently undergoing hemodialysis On trach shield No respiratory distress Tolerating tube feeding Vitals Vital Signs Date Time Temp Pulse Resp B/P (MAP) Pulse Ox O2 Delivery O2 Flow Rate FiO2 06/12/21 07:59 98 Tracheal Collar 10.0 06/12/21 07:00 48 16 125/57 (79) 06/12/21 04:00 97.9 97.9 Comments Tracheostomy ros unable to obtain General: No acute distress Lungs: Clear Cardiovascular: S1, S2 Abdomen: Soft, Other (Nontender) Neuro Exam: Alert Extremities: Other (1+ edema) Skin: Warm Labs Laboratory Tests Test 06/10/21 12:53 06/10/21 17:40 06/11/21 00:52 06/11/21 06:15 Glucose (Fingerstick) 176 mg/dL (70-99) 188 mg/dL (70-99) 164 mg/dL (70-99) White Blood Count 11.8 x10^3/uL (4.0-11.0) Red Blood Count 2.79 x10^6/uL (4.30-5.70) Hemoglobin 7.8 g/dL (13.0-17.5) Hematocrit 23.6 % (39.0-53.0) Mean Corpuscular Volume 85 fL (79-100) Mean Corpuscular Hemoglobin 28 pg (25-35) Mean Corpuscular Hemoglobin Concent 33 g/dL (31-37) Red Cell Distribution Width 17.5 % (11.5-14.5) Platelet Count 300 x10^3/uL (140-400) Sodium Level 137 mmol/L (136-145) Potassium Level 3.9 mmol/L (3.5-5.1) Chloride Level 104 mmol/L (98-107) Carbon Dioxide Level 28 mmol/L (21-32) Anion Gap 5 (6-14) Blood Urea Nitrogen 43 mg/dL (8-26) Creatinine 2.5 mg/dL (0.7-1.3) Estimated GFR (Cockcroft-Gault) 30.7 BUN/Creatinine Ratio 17 (6-20) Glucose Level 126 mg/dL (70-99) Calcium Level 8.5 mg/dL (8.5-10.1) Total Bilirubin 0.4 mg/dL (0.2-1.0) Aspartate Amino Transf (AST/SGOT) 31 U/L (15-37) Alanine Aminotransferase (ALT/SGPT) 26 U/L (16-63) Alkaline Phosphatase 68 U/L (46-116) Total Protein 5.8 g/dL (6.4-8.2) Albumin 1.7 g/dL (3.4-5.0) Albumin/Globulin Ratio 0.4 (1.0-1.7) Test 06/11/21 06:16 06/11/21 12:04 06/11/21 17:41 06/12/21 00:41 Glucose (Fingerstick) 126 mg/dL (70-99) 137 mg/dL (70-99) 174 mg/dL (70-99) 134 mg/dL (70-99) Test 06/12/21 06:20 06/12/21 06:28 White Blood Count 10.6 x10^3/uL (4.0-11.0) Red Blood Count 2.71 x10^6/uL (4.30-5.70) Hemoglobin 7.7 g/dL (13.0-17.5) Hematocrit 23.2 % (39.0-53.0) Mean Corpuscular Volume 86 fL (79-100) Mean Corpuscular Hemoglobin 28 pg (25-35) Mean Corpuscular Hemoglobin Concent 33 g/dL (31-37) Red Cell Distribution Width 17.1 % (11.5-14.5) Platelet Count 303 x10^3/uL (140-400) Neutrophils (%) (Auto) 48 % (31-73) Lymphocytes (%) (Auto) 25 % (24-48) Monocytes (%) (Auto) 12 % (0-9) Eosinophils (%) (Auto) 13 % (0-3) Basophils (%) (Auto) 2 % (0-3) Neutrophils # (Auto) 5.1 x10^3/uL (1.8-7.7) Lymphocytes # (Auto) 2.6 x10^3/uL (1.0-4.8) Monocytes # (Auto) 1.3 x10^3/uL (0.0-1.1) Eosinophils # (Auto) 1.4 x10^3/uL (0.0-0.7) Basophils # (Auto) 0.2 x10^3/uL (0.0-0.2) Sodium Level 142 mmol/L (136-145) Potassium Level 4.0 mmol/L (3.5-5.1) Chloride Level 108 mmol/L (98-107) Carbon Dioxide Level 27 mmol/L (21-32) Anion Gap 7 (6-14) Blood Urea Nitrogen 53 mg/dL (8-26) Creatinine 2.5 mg/dL (0.7-1.3) Estimated GFR (Cockcroft-Gault) 30.7 Glucose Level 180 mg/dL (70-99) Calcium Level 8.2 mg/dL (8.5-10.1) Phosphorus Level 4.4 mg/dL (2.6-4.7) Magnesium Level 2.5 mg/dL (1.8-2.4) Glucose (Fingerstick) 181 mg/dL (70-99) Laboratory Tests Test 06/11/21 12:04 06/11/21 17:41 06/12/21 00:41 06/12/21 06:20 Glucose (Fingerstick) 137 mg/dL (70-99) 174 mg/dL (70-99) 134 mg/dL (70-99) White Blood Count 10.6 x10^3/uL (4.0-11.0) Red Blood Count 2.71 x10^6/uL (4.30-5.70) Hemoglobin 7.7 g/dL (13.0-17.5) Hematocrit 23.2 % (39.0-53.0) Mean Corpuscular Volume 86 fL (79-100) Mean Corpuscular Hemoglobin 28 pg (25-35) Mean Corpuscular Hemoglobin Concent 33 g/dL (31-37) Red Cell Distribution Width 17.1 % (11.5-14.5) Platelet Count 303 x10^3/uL (140-400) Neutrophils (%) (Auto) 48 % (31-73) Lymphocytes (%) (Auto) 25 % (24-48) Monocytes (%) (Auto) 12 % (0-9) Eosinophils (%) (Auto) 13 % (0-3) Basophils (%) (Auto) 2 % (0-3) Neutrophils # (Auto) 5.1 x10^3/uL (1.8-7.7) Lymphocytes # (Auto) 2.6 x10^3/uL (1.0-4.8) Monocytes # (Auto) 1.3 x10^3/uL (0.0-1.1) Eosinophils # (Auto) 1.4 x10^3/uL (0.0-0.7) Basophils # (Auto) 0.2 x10^3/uL (0.0-0.2) Sodium Level 142 mmol/L (136-145) Potassium Level 4.0 mmol/L (3.5-5.1) Chloride Level 108 mmol/L (98-107) Carbon Dioxide Level 27 mmol/L (21-32) Anion Gap 7 (6-14) Blood Urea Nitrogen 53 mg/dL (8-26) Creatinine 2.5 mg/dL (0.7-1.3) Estimated GFR (Cockcroft-Gault) 30.7 Glucose Level 180 mg/dL (70-99) Calcium Level 8.2 mg/dL (8.5-10.1) Phosphorus Level 4.4 mg/dL (2.6-4.7) Magnesium Level 2.5 mg/dL (1.8-2.4) Test 06/12/21 06:28 Glucose (Fingerstick) 181 mg/dL (70-99) Medications Active Scripts Medications Dose Route/Sig Max Daily Dose Days Date Category Glyburide 2.5 Mg Tablet 1 Tab PO DAILY 04/19/21 Rx Polyethylene Glycol 3350 17 Gm Powd.pack 17 Gm PO DAILY 04/19/21 Rx Dok (Docusate Sodium) 100 Mg Capsule 100 Mg PO PRN DAILY PRN 04/19/21 Rx Bisacodyl 5 Mg Tablet. 5 Mg PO PRN DAILY PRN 04/19/21 Rx Acetaminophen 325 Mg Tablet 650 Mg PO PRN Q4HRS PRN 04/19/21 Rx Aspirin Ec (Aspirin) 81 Mg Tablet. 81 Mg PO DAILYWBKFT 04/19/21 Rx Hydralazine Hcl 25 Mg Tablet 25 Mg PO QID 04/19/21 Rx Fenofibrate 54 Mg Tablet 1 Tab PO DAILY 04/17/21 Reported Potassium Chloride (Potassium Chloride) 20 Meq Tablet.er 20 Meq PO DAILY 04/17/21 Reported Coreg (Carvedilol) 12.5 Mg Tablet 37.5 Mg PO BIDWMEALS 04/17/21 Reported Rosuvastatin Calcium 40 Mg Tablet 40 Mg PO QHS 04/17/21 Reported Gabapentin (Gabapentin) 100 Mg Capsule 200 Mg PO BID 04/17/21 Reported Montelukast Sodium Tablet (Montelukast Sodium) 10 Mg Tablet 10 Mg PO HS 04/17/21 Reported Protonix (Pantoprazole Sodium) 20 Mg Tablet. 2 Tab PO DAILY 04/17/21 Reported Amlodipine Besylate 5 Mg Tablet 5 Mg PO DAILY 04/17/21 Reported Furosemide 40 Mg Tablet 1 Tab PO DAILY 04/17/21 Reported Proair Hfa Inhaler (Albuterol Sulfate) 8.5 Gm Hfa.aer.ad 2 Puff IH PRN Q4-6HRS PRN 21 04/16/21 Reported Advair 100-50 Diskus (Fluticasone/Salmeterol) 1 Each Disk.w.dev 1 Puff IH BID 04/16/21 Reported Comments Impression . IMPRESSION: 1. Acute hypoxic respiratory failure, multifactorial/COVID-19 viral pneumonia/ARDS, ongoing, intubated 04/25/2021, now status post tracheostomy 05/15/[address] chest with bilateral diffuse interstitial infiltrates without any significant pleural effusion 3. Leukocytosis, sepsis--improved 4. Non-ST segment elevation [place] 5. History of tobacco use, suspect COPD, unknown FEV1 6. Chronic kidney disease.== HD as needed per renal 7. Metabolic acidosis multifactorial, improved 8. Abnormal chest x-ray, compatible with ARDS CHF 9. Hypoglycemia, continue to monitor--- resolved 10. Hypotension, suspect volume deficit,/possible sepsis--- resolved 11. Fever--improved 12. Anemia--improved 13. Atrial fibrillation with rapid ventricular response, currently rate con trolled 14. Ileus 15. Type 2 diabetes 16. A. fib Plan . Updated 06/12 Continue current trach shield Hemodialysis daily per nephrology, discussed with Dr. Ariza On the chest x-ray Increase tube feeding as tolerated Follow GI input Patient continues to be critically ill, assist-control ventilation in the evening. Hemoglobin stable Updated 06/11 Continue IV Diflucan per ID Monitor labs and cultures Continue trach shield as tolerated, AC vent Monitor chest x-ray DVT GI prophylaxis Nutritional support per GI, patient with ileus appears to be clinically improving Total cumulative critical care time of 30 minutes with no overlap updated 06/10 We will continue pressure support as tolerated throughout the day Continue support Follow GI input Ileus appears to be improving ADELSO AVILA MD Jun 12, 2021 08:23
--- NOTE | 2021-06-12 08:25 | RAD ---
EXAM: XR ABDOMEN 1V 06/10/2021 12:36 PM CLINICAL INDICATION: Ileus COMPARISON: Abdominal radiograph 06/05/2021 and 05/29/2021 TECHNIQUE: AP supine view the abdomen FINDINGS: A nasogastric tube terminates in the gastric body, unchanged. There is increased mild gaseo us distention of the stomach. There is no slightly increased diffuse gaseous distention of small robert l and colon. There are left retrocardiac opacities and small bilateral pleural effusions. Levoscolios is of the lumbar spine with multilevel degenerative disc disease noted. IMPRESSION: Mildly increased gaseous distention of the stomach and slightly increased diffuse gaseou s distention of the bowel consistent with ileus. Electronically signed by: Grecia Mcallister MD (06/12/2021 8:23 AM) [id number]
[2021-06-12] MEDS ORDERED: DIALYSIS PATIENT. MC PRN (09:30)
[2021-06-12] MEDS ORDERED: ALBUMIN HUMAN 25% 200 ML IV PRN (09:30)
--- NOTE | 2021-06-12 10:04 | PDOC ---
Date of Service: DATE: 06/12/21 TIME: 10:01 Objective: Objective: D/w nurse - tube feed schedule is 3 hrs on, 3 hrs off. 60 residual at midnight, 340 residual this morning (clear w/ chunks of old tube feed). Unclear if any results from [facility]istor. Vital Signs: Vital Signs Date Time Temp Pulse Resp B/P (MAP) Pulse Ox O2 Delivery O2 Flow Rate FiO2 06/12/21 09:00 62 16 110/55 (73) 100 Trach Shield 06/12/21 08:00 98.0 98.0 06/12/21 07:59 10.0 Labs: Laboratory Tests Test 06/11/21 12:04 06/11/21 17:41 06/12/21 00:41 06/12/21 06:20 Glucose (Fingerstick) 137 mg/dL 174 mg/dL 134 mg/dL White Blood Count 10.6 x10^3/uL Red Blood Count 2.71 x10^6/uL Hemoglobin 7.7 g/dL Hematocrit 23.2 % Mean Corpuscular Volume 86 fL Mean Corpuscular Hemoglobin 28 pg Mean Corpuscular Hemoglobin Concent 33 g/dL Red Cell Distribution Width 17.1 % Platelet Count 303 x10^3/uL Neutrophils (%) (Auto) 48 % Lymphocytes (%) (Auto) 25 % Monocytes (%) (Auto) 12 % Eosinophils (%) (Auto) 13 % Basophils (%) (Auto) 2 % Neutrophils # (Auto) 5.1 x10^3/uL Lymphocytes # (Auto) 2.6 x10^3/uL Monocytes # (Auto) 1.3 x10^3/uL Eosinophils # (Auto) 1.4 x10^3/uL Basophils # (Auto) 0.2 x10^3/uL Sodium Level 142 mmol/L Potassium Level 4.0 mmol/L Chloride Level 108 mmol/L Carbon Dioxide Level 27 mmol/L Anion Gap 7 Blood Urea Nitrogen 53 mg/dL Creatinine 2.5 mg/dL Estimated GFR (Cockcroft-Gault) 30.7 Glucose Level 180 mg/dL Calcium Level 8.2 mg/dL Phosphorus Level 4.4 mg/dL Magnesium Level 2.5 mg/dL Test 06/12/21 06:28 Glucose (Fingerstick) 181 mg/dL PE: GEN: dialyzing LUNGS: trach shield HEART: RRR ABD: tinkling sounds to right, large/round NEURO/PSYCH: didn't awaken during exam A/P: COVID-19/resp failure s/p tracheostomy, ileus -- Trying tube feeds as above. Justicifation of Admission Dx: Justifications for Admission: Justification of Admission Dx: Yes Aspiration Pneumonia: Hemodynamic Instability TAIWO THEODORE Jun 12, 2021 10:04
--- NOTE | 2021-06-12 10:12 | PDOC ---
Renal-Progress Notes Subjective Notes Notes UNABLE TO VOICE ANY COMPLAINTS History of Present Illness Hx of present illness NO ACUTE CHANGES. OVERALL UNCHANGED LAST SEVERAL WEEKS Vitals Vitals Vital Signs Date Time Temp Pulse Resp B/P (MAP) Pulse Ox O2 Delivery O2 Flow Rate FiO2 06/12/21 09:00 62 16 110/55 (73) 100 Trach Shield 06/12/21 08:00 98.0 98.0 06/12/21 07:59 10.0 Weight Weight [ ] I.O. Intake and Output Intake and Output 06/12/21 07:00 Intake Total 3459.9 ml Output Total 1135 ml Balance 2324.9 ml IV Total 3372.9 ml Tube Feeding 47 ml Other 40 ml Output Urine Total 1135 ml Gastric Drainage Total 0 ml Labs Labs Laboratory Tests Test 06/11/21 12:04 06/11/21 17:41 06/12/21 00:41 06/12/21 06:20 Glucose (Fingerstick) 137 mg/dL (70-99) 174 mg/dL (70-99) 134 mg/dL (70-99) White Blood Count 10.6 x10^3/uL (4.0-11.0) Red Blood Count 2.71 x10^6/uL (4.30-5.70) Hemoglobin 7.7 g/dL (13.0-17.5) Hematocrit 23.2 % (39.0-53.0) Mean Corpuscular Volume 86 fL (79-100) Mean Corpuscular Hemoglobin 28 pg (25-35) Mean Corpuscular Hemoglobin Concent 33 g/dL (31-37) Red Cell Distribution Width 17.1 % (11.5-14.5) Platelet Count 303 x10^3/uL (140-400) Neutrophils (%) (Auto) 48 % (31-73) Lymphocytes (%) (Auto) 25 % (24-48) Monocytes (%) (Auto) 12 % (0-9) Eosinophils (%) (Auto) 13 % (0-3) Basophils (%) (Auto) 2 % (0-3) Neutrophils # (Auto) 5.1 x10^3/uL (1.8-7.7) Lymphocytes # (Auto) 2.6 x10^3/uL (1.0-4.8) Monocytes # (Auto) 1.3 x10^3/uL (0.0-1.1) Eosinophils # (Auto) 1.4 x10^3/uL (0.0-0.7) Basophils # (Auto) 0.2 x10^3/uL (0.0-0.2) Sodium Level 142 mmol/L (136-145) Potassium Level 4.0 mmol/L (3.5-5.1) Chloride Level 108 mmol/L (98-107) Carbon Dioxide Level 27 mmol/L (21-32) Anion Gap 7 (6-14) Blood Urea Nitrogen 53 mg/dL (8-26) Creatinine 2.5 mg/dL (0.7-1.3) Estimated GFR (Cockcroft-Gault) 30.7 Glucose Level 180 mg/dL (70-99) Calcium Level 8.2 mg/dL (8.5-10.1) Phosphorus Level 4.4 mg/dL (2.6-4.7) Magnesium Level 2.5 mg/dL (1.8-2.4) Test 06/12/21 06:28 Glucose (Fingerstick) 181 mg/dL (70-99) Micro Micro Microbiology 06/02/21 Gram Stain - Final, Complete 06/02/21 Aerobic Culture - Final, Complete 06/02/21 Blood Culture - Final, Complete NO GROWTH AFTER 5 DAYS 05/30/21 Gram Stain Evaluation - Final, Complete 05/30/21 Respiratory Culture - Final, Complete Review of Systems Constitutional: yes: unresponsive, other Physical Exam General Appearance: no apparent distress, other (ON THE VENT) Skin: warm, dry, edema Respiratory: decreased breath sounds Heart: S1S2 Abdomen: soft, N/T, distension, other Genitourinary: bladder flat, mooney catheter Extremities: pulses present, edema Neurology: other (sedated) Musculoskeletal: Other Assessment Assessment IMP NEW FUNGEMIA HYPONATREMIA-RESOLVED HYPOKALEMIA LOW PO4-CORRECTED LOW MAG-CORRECTED [id number] UO BUT NO CLEARANCE CKD - SUSPECT STAGE 3 ACUTE HYPOXIC RESP FAILURE COVID 19 PNEUMONIA MET ACIDOSIS-BETTER LEUCOCYTOSIS ANEMIA S/P TRACH ANASARCA ILEUS PLAN RESP SUPPORT HD TODAY UF TOLERATED NEEDING SPA WILL NEED DAILY HD DUE TO EDEMA ANTIBIOTICS ANTIFUNGALS CONT TPN WILL FOLLOW JEANINE NEWTON MD Jun 12, 2021 10:12
--- NOTE | 2021-06-12 10:12 | NUR ---
SS following up with discharge planning. SS reviewed pt chart and discussed with pt RN. Pt is currently on trach shield at 40% and pressure support at HS at 40%. Pt on TPN and IV Fluconazole. Hemodialysis. NG in place. Attempted low dose tube feedings but residuals high. Pt on Precedex and Propofol. Pt accepted at [facility], ; fax [phone], pending insurance authorization. SS phoned and faxed clinical updates to [facility]. SS will continue to follow for discharge planning.
[2021-06-12] MEDS: FLUCONAZOLE 200MG/100ML PREMIX 100 ML IV SCH (11:57)
[2021-06-12] MEDS: PANTOPRAZOLE IV PUSH 40 MG VIAL. IVP SCH (11:57)
[2021-06-12] MEDS: NYSTATIN TOPICAL POWDER 15GM BOTTLE. TP SCH ×2 (11:57→21:43)
[2021-06-12] MEDS: PROPOFOL 100 ML IV PRN ×2 (11:59→22:04)
[2021-06-12] MEDS: INSULIN GLARGINE SYRINGE. SQ SCH ×2 (12:03→21:49)
[2021-06-12] MEDS: ASPIRIN CHEWABLE 81 MG TABLET. PO SCH (12:03)
[2021-06-12] MEDS: TPN PER PHARMACY MC PRN (12:50)
--- NOTE | 2021-06-12 13:55 | PDOC ---
[employer] PROGRESS NOTE Date of Service DOS: DATE: 06/12/21 TIME: 13:54 Chief Complaint Chief Complaint Respiratory failure requiring intubation COVID-19 Acute [place] A. fib SIRS Hypertension with hypertensive urgency Hyperlipidemia CKD Diabetes History of bilateral subclavian stenosis History of marijuana use Severe protein calorie malnutrition Trach placed on May 15 GI consulted for PEG evaluation --> patient with a lot of vomiting yesterday thus current NG tube to low intermittent suction Anemia secondary to acute blood loss, possible multiple lab draws and related to advanced CKD Positive yeast on 1 out of 4 bottles on blood cultures History of Present Illness History of Present Illness 06/12/2021 Patient seen and examined in the ICU He is currently on dialysis (dialysis nurse states we took 2 L off today and we plan to do daily dialysis for a few days per Dr. Ariza) Has trach shield in place Chart reviewed Discussed with RN He remains critically ill 06/10: Tolerating 30 cc every 3 hours tube feed with minimal residuals overnight. Remains in A. fib. Abdomen appears a bit more distended, soft. Minimally sedated propofol Precedex on [employer]IAN FiO2 40% PEEP 5. CC time 31 min spent in reviewing chart, labs, and images. Discussed with RN and SW. Mr Cunha is a 75 yo male w/ PMHx CAD, HTN, Hyperlipidemia, subclavian steel syndrome, subclavian stenosis s/p left subclavian sent placement complicated by retroperitoneal hematoma s/p evacuation in 08/2015), asthma, BART, CKD, DM2 who presented from home with home health care noted that he was short of breath and valverde with O2 saturations less than 89% as low as 84% not improved with nasal cannulated oxygen placed on CPAP and brought to ED for further care. He was just discharged from the hospital a week ago on April 19, 2021 for abdominal pain and was going for further cardiac testing with outpatient stress testing scheduled on May 28, 2021. Had echocardiogram April 17, 2021 with normal-appearing EF with moderate concentric LVH no significant valvular abnormalities. WBC 20, Hb 10.7, platelets 268, NA 140, K3.8, BUN 21, CR 2.9, glucose 162, albumin 3, troponin I 1.372, NT proBNP 33,318. EKG appears sinus tachycardia rate of 105 bpm with multiple PACs small ST depressions in lead II and V5. TWI in V6. Chest radiograph with diffuse interstitial and alveolar opacities and ET tube 5.8 cm above the leilani. Due to worsening respiratory status ED physician elected to intubate patient. Seen postintubation. Blood pressure little low after propofol bolus, but improv ed. Significant white frothy sputum per ET tube. Admitted to ICU for further care 04/25: On vent FiO2 50, PEEP 5. Febrile, T-max 103.3. Patient was initiated on cooling blankets. Procalcitonin 0.13. 04/26: COVID-19 positive. Febrile overnight that was managed with cooling blankets. On vent with FiO2 50%, PEEP 5. Per cardiology, elevated troponins likely secondary to demand ischemia; continue heparin drip per cardiology. Continue treatment with remdesivir, steroids, and antibiotics. 04/27: Afebrile. Vent with FiO2 50%, PEEP 5. Troponin 2.8 yesterday; probable type II, demand ischemia. New onset A. fib. Cont heparin gtt and prn digoxin, per cardiology. Contnue treatment with remdesivir, steroids, and prophylactic antibiotics. BG 323 this morning; will add basal insulin. 04/28: Afebrile. FiO2 50%, PEEP 5. Nontunneled HD catheter placed yesterday due to worsening kidney function; eGFR 16 (CKD4). Chest x-ray showed unchanged interstitial opacities. Continue empiric antibiotics, steroids, and remdesivir. Continue heparin infusion, for new dx A. fib. 04/29: Afebrile, remains on vent at FiO2 45%, PEEP 5. WBC 20.4. Hemodialysis p er nephrology. We will continue treatment with empiric antibiotics, remdesivir, and steroids. Continue heparin infusion and supportive care. 04/30: Patient seen and examined in the [facility]- ICU. He remains on the vent. AC/20/500/40 5% with 5 PEEP. Currently on dialysis. Has OG feeds running. Has a Nieves to bedside drainage. Sedated with propofol and fentanyl. He remains critically ill 05/01: Patient seen and examined in the [place] [address] ICU. He is still intubated. AC/20/500/40 percent with 5 of PEEP. In A. fib. Sedated with propofol fentanyl and Versed. Has a heparin drip 05/02: Patient seen and examined in the [facility]- ICU. He is sedated with propofol fentanyl and Versed. AC/20/500/40 percent with 5 of PEEP. He remains critically ill 05/03: Patient seen and examined in the [place] [address] ICU. He is still intubated. AC/20/500/70 percent with 5 of PEEP. Sedated with fentanyl Versed and propofol. Remains critically ill 05/04: Patient seen and examined in the [place] [address] ICU. Still intubated. Sedated with propofol and fentanyl. AC/20/500/70 percent with 5 of PEEP. On dialysis currently 05/05: Patient seen and examined in the [place] [address] ICU. He remains on the vent. AC/20/500/40 percent with 5 of PEEP. He remains critically ill 05/06: Patient seen and examined in the [place] [address] ICU. He remains mechanically ventilated. AC/20/500/40 05/07: Patient seen and examined in the [place] [address] ICU. He remains mechanically ventilated. ILDA on CKD - ATN 2/2 sepsis/ Hypotension,UOP good,on IV Lasix ; requiring dialysis, . AC/20/500/40 percent with 5 of PEEP. Sedated with propofol Dex and fentanyl 05/08: Currently on 40%, 5 of PEEP. now on cardene gtt. Patient seen and examined in the [place] [address] ICU. 05/09: VENT [id number]%, 5 of PEEP. Mild pulmonary edema with new small right pleural effusion and basilar opacities. Change central line and send cath tip for cultures. 05/10: VENT [id number]%, 5 of PEEP. Mild pulmonary edema with new small right pleural effusion and basilar opacities. Patient seen and examined in the [place] [id number] ICU 05/11: Continue iv cefepime , add zyvox, sputum culture 05/12: Continue iv cefepime , add zyvox, sputum culture. VENT [id number]%, 5 of PEEP. now on cardene gtt prn 05/13: Did not tolerate sedation vacation 05/11/2021, profoundly hypertensive. ABG/CXR--changes as needed. Continue iv cefepime , add zyvox, sputum culture. VENT [id number]%, 5 of PEEP. Mild pulmonary edema with new small right pleural effusion and basilar opacities. now on cardene gtt prn 05/14: Patient seen and examined at bedside. Remains intubated and sedated planning for tracheostomy tomorrow. Continue current respiratory support; continue antibiotics, continue sedation. Follow recommendations of pulmonary, renal, and infectious disease 05/15: Patient seen and examined at bedside. Remains intubated and sedated planning for tracheostomy today. Continue current respiratory support; continue antibiotics, continue sedation. 05/16: Patient seen and examined at bedside. Underwent tracheostomy yesterday today tolerated well. When seen this morning patient is still notably sedated respiratory status is stable. measures. 05/17: Patient seen and examined at bedside. Attempting to wean sedation. Patient with some diarrhea. Per infectious disease will give erythromycin eye ointment for eye lesions. Nephro and pulm also following. 05/18: Patient seen and examined at bedside. Attempting to increase tube feeds, GI consulted for PEG evaluation. Otherwise no major clinical changes. Continue to wean sedation. Plan of care discussed with bedside nurse. 05/19: Patient seen and examined at bedside. Apparently had a fair bit of vomiting overnight. GI following for PEG evaluation. Otherwise patient remained stable. Plan of care discussed with bedside nurse. 05/20: Patient seen and examined at bedside. Again had multiple bouts of vomiting yesterday. GI continuing to follow for PEG evaluation although on hold right now due to persistent vomiting. Leukocytosis 05/21: Afebrile, no acute events overnight. Remains on vent, FiO2 40%, PEEP 5. S/P tracheostomy on 05/15/2021. KUB on 05/19/2021 consistent with ileus. Per GI, continue NG tube to suction and parenteral nutrition for now. Continue IV antibiotics, per ID. Continue hemodialysis 05/22: Afebrile. On vent with FiO2 40%, PEEP 5. Excessive NG output. Continue NG tube to suction for now; PEG on hold for now. Continue hemodialysis, per nephrology. Continue IV antibiotics, per ID. 05/23: Afebrile. Vent with FiO2 40%, PEEP 5. NG tube for 635 mL out overnight. Continue NG tube to suction. HD 05/24: No acute events overnight. Afebrile. NG tube output has decreased. Kidney function appears stable. Continue IV antibiotics, per ID. Patient has been accepted to [facility], pending insurance authorization. 05/25: Afebrile. On vent with FiO2 40%, PEEP 5. Hemoglobin 8.6 yesterday, hemoglobin 7.3 today. Reportedly had HD yesterday. Continue IV antibiotics, per ID; WBC possibly reactive to ileus. Has been accepted at [facility]; transfer pending, but will need PEG tube placement prior. 05/26: Afebrile. On vent with FiO2 40%, PEEP 5. Hemoglobin 7.3 yesterday, and hemoglobin 7.2 today; continue to trend. Leukocytosis slightly improved, WBC 12.9 today. Has been accepted at [facility]; transfer pending, but will need PEG tube placement prior. 05/27: Afebrile. On vent with FiO2 40%, PEEP 5. Hemoglobin remains stable at 7.2 today; continue to trend. WBC 13.4. Kidney function appears to be stabilized. LTAC transfer is pending PEG tube placement. Off meropenem; will continue to monitor. Kidney function appears to be stable. 05/28: No acute events overnight. Patient doing well on trach with settings of 40% FiO2 and PEEP of 8. Pending PEG placement after ileus is resolved will defer this to GI for timing of PEG placement.. Also pending tunneled catheter placement for dialysis. 05/29: No acute events or night. Patient tolerating trach collar humidified. Saturating at 99%. Pending PICC line placement and IJ central line removal. Per ID. Possibly in not needing HD. Making urine adequately with Lasix as needed. 05/30: No acute events overnight. Patient doing well on trach collar. Hemoglobin decreased down to 6.7 pending 1 unit PRBC transfusion. Restarted on linezolid and Flagyl and cefepime. Pending PICC placement and central line IJ removal. 05/31: No acute events overnight. Patient saturating 100% on trach collar. Hemoglobin improved after 1 unit PRBC transfusion to 8.4. Patient is currently undergoing dialysis and his labs have been stable. Patient's chart, labs, images were reviewed and discussed with RN 06/01: No acute events overnight. Patient saturating well on trach collar. Patient seen and examined bedside and on HD. Hemoglobin trended down from 8.4- 7.3. Afebrile in the last 24 hours. Patient's chart, labs, images were reviewed and discussed with RN 06/02: No acute events overnight. Patient saturating 100% on trach collar. Tmax 100.3. Yeast 1 of 4 bottles on blood cultures. Plan to remove central line and dialysis catheter. Family consideration for tunneled catheterization possibly hold. Micafungin was started per ID. 06/03: No acute events overnight. Left IJ placed by IR. Defer to ID for antibiotic management for cultures of the catheter tip and yeast. 06/04: No overnight events afebrile. Sedated on propofol and Precedex. On vent with tracheostomy PEEP 5 FiO2 40%. Being treated for fungemia and receiving TPN. Left IJ CVC functioning well. HD catheter right. 06/05: Afebrile. Still requiring minimal sedation on propofol and Precedex. Requiring vent support via trach PEEP five FiO2 40%. KUB with less gaseous distention. No BM but bowel sounds are audible. 06/06: Afebrile. On minimal sedation with propofol and Precedex and vent support via trach PEEP 5 FiO2 40%. Still in A. fib on telemetry. Catheter tip no growth to date sputum with Mariya. Repeat blood cultures no growth to date 06/07: Afebrile. On minimal sedation propofol and Precedex with for trach PEEP 5 FiO2 40%. He is to be in A. fib. Hb 6.9. Will transfuse with dialysis today. Did have stool smear overnight 06/08: Afebrile. On minimal sedation propofol Precedex tolerated pressure support yesterday back on AC PEEP 5 FiO2 40% use more alert trying to pull out his tracheostomy successfully disconnected himself from the vent. Not easily redirectable. Admits for safety. In A. fib. Labs pending 06/09: Vomited large amount of tube feeding overnight and NG attached to low suction. Remains in A. fib. Minimal sedation with propofol and Precedex. Tolerated pressure support back on AC FiO2 40% PEEP 5 getting dialysis currently. 06/11/2021: Patient seen and examined in the ICU. Mitts on for patient safety. Sedated with dexmedetomidine, propofol, and fentanyl. IV TPN hanging. NG tube running at 10 mL per hour. Currently on trach shield 10L. Discussed with RN. Chart reviewed. Vitals/I&O Vitals/I&O: Vital Signs Date Time Temp Pulse Resp B/P (MAP) Pulse Ox O2 Delivery O2 Flow Rate FiO2 06/12/21 13:40 96 Tracheal Collar 10.0 06/12/21 13:00 96 23 116/80 (92) 06/12/21 12:00 97.8 97.8 I & O 06/11/21 06/11/21 06/12/21 15:00 23:00 07:00 Intake Total 172 ml 2083 ml 1204.9 ml Output Total 195 ml 630 ml 310 ml Balance -23 ml 1453 ml 894.9 ml Physical Exam Physical Exam: GENERAL: awake and comfortable off vent HEENT: Normocephalic, atraumatic, redness and erythema of both eyes improved, NG tube present NECK: right dialysis catheter present clean,Lt neck central line changed ( 05/11) Trach + HEART: S1, S2.no gallop LUNGS: Decreased breath sounds. ABDOMEN: Less distended, bowel sounds present GENITOURINARY: Nieves in place. EXTREMITIES: Edema present. DERMATOLOGIC: Warm, dry, no generalized rash. NEUROLOGIC: Opens eyes PICC line clean General: Other (DROWSY) Heart: Regular rate, Normal S1, Normal S2, No murmurs, Gallops Lungs: Clear Abdomen: Normal bowel sounds, Other (ND) Extremities: Other (EDEMA) Skin: No rashes, No breakdown, No significant lesion Labs Labs: Laboratory Tests Test 06/11/21 17:41 06/12/21 00:41 06/12/21 06:20 06/12/21 06:28 Glucose (Fingerstick) 174 mg/dL (70-99) 134 mg/dL (70-99) 181 mg/dL (70-99) White Blood Count 10.6 x10^3/uL (4.0-11.0) Red Blood Count 2.71 x10^6/uL (4.30-5.70) Hemoglobin 7.7 g/dL (13.0-17.5) Hematocrit 23.2 % (39.0-53.0) Mean Corpuscular Volume 86 fL (79-100) Mean Corpuscular Hemoglobin 28 pg (25-35) Mean Corpuscular Hemoglobin Concent 33 g/dL (31-37) Red Cell Distribution Width 17.1 % (11.5-14.5) Platelet Count 303 x10^3/uL (140-400) Neutrophils (%) (Auto) 48 % (31-73) Lymphocytes (%) (Auto) 25 % (24-48) Monocytes (%) (Auto) 12 % (0-9) Eosinophils (%) (Auto) 13 % (0-3) Basophils (%) (Auto) 2 % (0-3) Neutrophils # (Auto) 5.1 x10^3/uL (1.8-7.7) Lymphocytes # (Auto) 2.6 x10^3/uL (1.0-4.8) Monocytes # (Auto) 1.3 x10^3/uL (0.0-1.1) Eosinophils # (Auto) 1.4 x10^3/uL (0.0-0.7) Basophils # (Auto) 0.2 x10^3/uL (0.0-0.2) Sodium Level 142 mmol/L (136-145) Potassium Level 4.0 mmol/L (3.5-5.1) Chloride Level 108 mmol/L (98-107) Carbon Dioxide Level 27 mmol/L (21-32) Anion Gap 7 (6-14) Blood Urea Nitrogen 53 mg/dL (8-26) Creatinine 2.5 mg/dL (0.7-1.3) Estimated GFR (Cockcroft-Gault) 30.7 Glucose Level 180 mg/dL (70-99) Calcium Level 8.2 mg/dL (8.5-10.1) Phosphorus Level 4.4 mg/dL (2.6-4.7) Magnesium Level 2.5 mg/dL (1.8-2.4) Test 06/12/21 12:06 Glucose (Fingerstick) 115 mg/dL (70-99) Assessment and Plan Assessmemt and Plan Problems Medical Problems: (1) Elevated troponin Status: Acute (2) Person under investigation for COVID-19 Status: Acute (3) Pulmonary edema Status: Acute Respiratory failure requiring intubation COVID-19 Acute [place] A. fib SIRS Hypertension with hypertensive urgency Hyperlipidemia CKD Diabetes History of bilateral subclavian stenosis History of marijuana use Severe protein calorie malnutrition Trach placed on May 15 GI consulted for PEG evaluation --> patient with a lot of vomiting yesterday thus current NG tube to low intermittent suction Anemia secondary to acute blood loss, possible multiple lab draws and related to advanced CKD Positive yeast on 1 out of 4 bottles on blood cultures Plan: 1) ICU monitoring 2) Continue trach shield (started on 06/10) 3) Continue IV sedation with dexmedetomidine, propofol, and fentanyl 4) Appreciate subspecialty consult: - Pulmonology (06/11): Continue IV Diflucan per ID. Monitor labs and cultures. Continue trach shield as tolerated, AC vent. Monitor chest x-ray. DVT GI prophylaxis. Nutritional support per GI, patient with ileus appears to be clinically improving - ID (06/11): Cont diflucan. Monitor labs and cultures. lines removed. Repeat Bc remain negative. Nieves changed 05/30. C. difficile PCR negative. Remains critically ill. 5) Continue IV TPN 6) SCD for DVT prophylaxis 7) Prognosis guarded Per pulmonary please see the below recommendations and we certainly agree CC time 33 minutes Continue current trach shield Hemodialysis daily per nephrology, discussed with Dr. Ariza On the chest x-ray Increase tube feeding as tolerated Follow GI input Patient continues to be critically ill, assist-control ventilation in the evening. Hemoglobin stable Comment Review of Relevant I have reviewed the following items juanita (where applicable) has been applied. Medications: Current Medications Medications (Trade) Dose Ordered Sig/Jodie Route PRN Reason Start Time Stop Time Status Last Admin Dose Admin Sodium Chloride 90 meq/Potassium Chloride 30 meq/ Potassium Phosphate 13.6 mmol/Magnesium Sulfate 12 meq/ Multivitamins 5 ml/Zinc/Copper/ Manganese/ Selenium 1 ml/ Total Parenteral Nutrition/Amino Acids/Dextrose/ Fat Emulsion Intravenous 1,440 ml @ 60 mls/hr TPN CONT IV 06/11/21 22:00 06/12/21 21:59 06/11/21 22:13 Albumin Human 200 ml @ 200 mls/hr 1X PRN PRN IV Hypotension 06/12/21 09:30 06/12/21 15:29 06/12/21 09:30 Justifications for Admission General Conditions Altered mental status?: Yes Justification of admission: Patient has tachycardia (> 100 beats per minute) or hypotension (SBP < 90 mm Hg) leading to inadequate systemic perfusion as indicated by severe/persistent altered mental status. Other Justification ELENI RENTERIA III DO Jun 12, 2021 13:55
[2021-06-12] MEDS: MONTELUKAST SODIUM 10 MG TABLET. PO SCH (21:42)
[2021-06-12] MEDS: ATORVASTATIN CALCIUM 40 MG TABLET. PO SCH (21:42)
[2021-06-12] MEDS ORDERED: [UNRECOGNIZED DRUG - OTHER] IV SCH (22:00)
[2021-06-12] MEDS ORDERED: AMINO ACID IV SCH (22:00)
[2021-06-12] MEDS ORDERED: DEXTROSE 70% IV SCH (22:00)
[2021-06-12] MEDS ORDERED: TOTAL PARENTERAL NUTRITION IV SCH (22:00)
[2021-06-13] VITALS (25 sets, daily range): BP systolic 78–142; BP diastolic 52–91
[2021-06-13] MEDS: INSULIN LISPRO 300 UNITS/3 ML VIAL. SQ SCH ×8 (01:07→17:19)
[2021-06-13] MEDS: METOPROLOL IV PUSH 5 MG/5 ML VIAL. IVP SCH ×4 (01:13→17:16)
[2021-06-13] MEDS: DEXMEDETOMIDINE 400 MCG in IV NORMAL SALINE 100ML 96 ML IV PRN ×5 (05:38→21:00)
[2021-06-13 07:23] LABS: BASO # 0.1 x10^3/uL (0.0-0.2); BASO % 1 % (0-3); EOS # 0.3 x10^3/uL (0.0-0.7); EOS % 2 % (0-3); HEMATOCRIT 25.4 % (39.0-53.0); HEMOGLOBIN 8.2 g/dL (13.0-17.5); LYMPH # 3.4 x10^3/uL (1.0-4.8); LYMPH % 21 % (24-48); MEAN CORPUSCULAR HEMOGLOBIN 27 pg (25-35); MEAN CORPUSCULAR HGB CONC 32 g/dL (31-37); MEAN CORPUSCULAR VOLUME 85 fL (79-100); MONO # 1.7 x10^3/uL (0.0-1.1); MONO % 10 % (0-9); NEUT # 11.2 x10^3/uL (1.8-7.7); NEUT % 67 % (31-73); PLATELET COUNT 389 x10^3/uL (140-400); RED BLOOD COUNT 2.99 x10^6/uL (4.30-5.70); RED CELL DISTRIBUTION WIDTH 17.1 % (11.5-14.5); WHITE BLOOD COUNT 16.7 x10^3/uL (4.0-11.0)
--- NOTE | 2021-06-13 07:38 | PDOC ---
Infectious Disease Note Subjective Subjective On vent mainly at night Discussed with nursing staff ROS ROS No nausea vomiting diarrhea Vital Sign Vital Signs Vital Signs Date Time Temp Pulse Resp B/P (MAP) Pulse Ox O2 Delivery O2 Flow Rate FiO2 06/13/21 07:35 96 Ventilator 06/13/21 06:00 92 119/73 06/13/21 02:00 28 06/13/21 00:00 98.6 98.6 06/12/21 17:05 10.0 Physical Exam PHYSICAL EXAM GENERAL: awake and comfortable off vent HEENT: Normocephalic, atraumatic, redness and erythema of both eyes improved, NG tube present NECK: right dialysis catheter present clean,Lt neck central line changed ( 05/11) Trach + HEART: S1, S2.no gallop LUNGS: Decreased breath sounds. ABDOMEN: Less distended, bowel sounds present GENITOURINARY: Nieves in place. EXTREMITIES: Edema present. DERMATOLOGIC: Warm, dry, no generalized rash. NEUROLOGIC: Opens eyes PICC line clean Labs Lab Laboratory Tests Test 06/12/21 12:06 06/13/21 01:04 06/13/21 07:14 Glucose (Fingerstick) 115 mg/dL (70-99) 223 mg/dL (70-99) 164 mg/dL (70-99) Micro BLOOD CULTURE LC Final Final FINAL ID= [MANDI PARAPSILOSIS] NO FURTHER WORKUP MANDI PARAPSILOSIS Unless otherwise specified, Testing Performed by: [address] [address] For Inquires, the Physician may contact the Microbiology department at [phone] Objective Assessment Fungemia May 30, 2021, C parapsilosis, 06/02 neg RT IJ central line removed cath tip sent for cult 1. Febrile illness resolved 2. Leukocytosis, was on steroids,ileus could contribute,improving 3. COVID-19 pneumonia. 4. Acute hypoxic respiratory failure status post intubation.Now S/P Trach 8/10 Pleural effusion 5. Congestive heart failure, acute on chronic. 6. Acute kidney injury on chronic kidney disease on hemodialysis. 7. Diabetes mellitus 2. 8. Atrial fibrillation. 9. Anemia. 10. Protein-calorie malnutrition. 11. Hypertention 12.Hyponatremia 13. Ileus, Bowel obstruction Peg TF on hold, OG to LIS 14.on PPN 15.Mild to Moderate Pleural effusion 16.Lt eye conjunctivitis resolved Plan Plan of Care Cont diflucan Monitor labs and cultures lines removed Repeat Bc remain negative from 06/02 Nieves changed 05/30 C. difficile PCR negative Remains critically ill Continue supportive care Prognosis poor Discussed with nursing staff JAD RIVERO MD Jun 13, 2021 07:38
[2021-06-13 07:40] LABS: CALCIUM 8.5 mg/dL (8.5-10.1); CREATININE 2.1 mg/dL (0.7-1.3); GFR 37.5; POTASSIUM 4.7 mmol/L (3.5-5.1)
[2021-06-13] MEDS: ASPIRIN CHEWABLE 81 MG TABLET. PO SCH (08:00)
[2021-06-13] MEDS: FLUCONAZOLE 200MG/100ML PREMIX 100 ML IV SCH (08:00)
[2021-06-13] MEDS: NYSTATIN TOPICAL POWDER 15GM BOTTLE. TP SCH (08:00)
[2021-06-13] MEDS: PANTOPRAZOLE IV PUSH 40 MG VIAL. IVP SCH (08:00)
[2021-06-13] MEDS: PROPOFOL 100 ML IV PRN ×2 (08:10→17:15)
[2021-06-13 08:33] LABS: BASE EXCESS ABG -1 mmol/L (-3-3); HCO3 ABG 23 mmol/L (21-28); PCO2 ABG 34 mmHg (35-46); PO2 ABG 71 mmHg (65-108); SAT O2 ABG 93 % (92-99)
--- NOTE | 2021-06-13 08:51 | PDOC ---
[employer] PROGRESS NOTE Date of Service DOS: DATE: 06/13/21 TIME: 08:48 Chief Complaint Chief Complaint Respiratory failure requiring intubation COVID-19 Acute [place] A. fib SIRS Hypertension with hypertensive urgency Hyperlipidemia CKD Diabetes History of bilateral subclavian stenosis History of marijuana use Severe protein calorie malnutrition Trach placed on May 15 GI consulted for PEG evaluation --> patient with a lot of vomiting yesterday thus current NG tube to low intermittent suction Anemia secondary to acute blood loss, possible multiple lab draws and related to advanced CKD Positive yeast on 1 out of 4 bottles on blood cultures History of Present Illness History of Present Illness 06/13/2021 Patient seen and examined in the ICU Chart reviewed Discussed with RN Vent settings as follows Spontaneous respirations with 40% FiO2 10 of pressure support Sedated with fentanyl propofol and Dex Has Nieves to bedside drainage Mitts for patient safety 06/12/2021 Patient seen and examined in the ICU He is currently on dialysis (dialysis nurse states we took 2 L off today and we plan to do daily dialysis for a few days per Dr. Ariza) Has trach shield in place Chart reviewed Discussed with RN He remains critically ill 06/10: Tolerating 30 cc every 3 hours tube feed with minimal residuals overnight. Remains in A. fib. Abdomen appears a bit more distended, soft. Minimally sedated propofol Precedex on [employer] FiO2 40% PEEP 5. CC time 31 min spent in reviewing chart, labs, and images. Discussed with RN and SW. Mr Cunha is a 75 yo male w/ PMHx CAD, HTN, Hyperlipidemia, subclavian steel syndrome, subclavian stenosis s/p left subclavian sent placement complicated by retroperitoneal hematoma s/p evacuation in 08/2015), asthma, BART, CKD, DM2 who presented from home with home health care noted that he was short of breath and valverde with O2 saturations less than 89% as low as 84% not improved with nasal cannulated oxygen placed on CPAP and brought to ED for further care. He was just discharged from the hospital a week ago on April 19, 2021 for abdominal pain and was going for further cardiac testing with outpatient stress testing scheduled on May 28, 2021. Had echocardiogram April 17, 2021 with normal-appearing EF with moderate concentric LVH no significant valvular abnormalities. WBC 20, Hb 10.7, platelets 268, NA 140, K3.8, BUN 21, CR 2.9, glucose 162, albumin 3, troponin I 1.372, NT proBNP 33,318. EKG appears sinus tachycardia rate of 105 bpm with multiple PACs small ST depressions in lead II and V5. TWI in V6. Chest radiograph with diffuse interstitial and alveolar opacities and ET tube 5.8 cm above the leilani. Due to worsening respiratory status ED physician elected to intubate patient. Seen postintubation. Blood pressure little low after propofol bolus, but improved. Significant white frothy sputum per ET tube. Admitted to ICU for further care 04/25: On vent FiO2 50, PEEP 5. Febrile, T-max 103.3. Patient was initiated on cooling blankets. Procalcitonin 0.13. 04/26: COVID-19 positive. Febrile overnight that was managed with cooling blankets. On vent with FiO2 50%, PEEP 5. Per cardiology, elevated troponins likely secondary to demand ischemia; continue heparin drip per cardiology. Continue treatment with remdesivir, steroids, and antibiotics. 04/27: Afebrile. Vent with FiO2 50%, PEEP 5. Troponin 2.8 yesterday; probable type II, demand ischemia. New onset A. fib. Cont heparin gtt and prn digoxin, per cardiology. Contnue treatment with remdesivir, steroids, and prophylactic antibiotics. BG 323 this morning; will add basal insulin. 04/28: Afebrile. FiO2 50%, PEEP 5. Nontunneled HD catheter placed yesterday due to worsening kidney function; eGFR 16 (CKD4). Chest x-ray showed unchanged interstitial opacities. Continue empiric antibiotics, steroids, and remdesivir. Continue heparin infusion, for new dx A. fib. 04/29: Afebrile, remains on vent at FiO2 45%, PEEP 5. WBC 20.4. Hemodialysis per nephrology. We will continue treatment with empiric antibiotics, remdesivir, and steroids. Continue heparin infusion and supportive care. 04/30: Patient seen and examined in the [place] [address] ICU. He remains on the vent. AC/20/500/40 5% with 5 PEEP. Currently on dialysis. Has OG feeds running. Has a Nieves to bedside drainage. Sedated with propofol and fentanyl. He remains cri tically ill 05/01: Patient seen and examined in the [place] [address] ICU. He is still intubated. AC/20/500/40 percent with 5 of PEEP. In A. fib. Sedated with propofol fentanyl and Versed. Has a heparin drip 05/02: Patient seen and examined in the [place] [address] ICU. He is sedated with propofol fentanyl and Versed. AC/20/500/40 percent with 5 of PEEP. He remains critically ill 05/03: Patient seen and examined in the [place] [address] ICU. He is still intubated. AC/20/500/70 percent with 5 of PEEP. Sedated with fentanyl Versed and propofol. Remains critically ill 05/04: Patient seen and examined in the [place] [address] ICU. Still intubated. Sedated with propofol and fentanyl. AC/20/500/70 percent with 5 of PEEP. On dialysis currently 05/05: Patient seen and examined in the [place] [address] ICU. He remains on the vent. AC/20/500/40 percent with 5 of PEEP. He remains critically ill 05/06: Patient seen and examined in the [place] [address] ICU. He remains mechanically ventilated. AC/20/500/40 05/07: Patient seen and examined in the [place] [address] ICU. He remains mechanically ventilated. ILDA on CKD - ATN 2/2 sepsis/ Hypotension,UOP good,on IV Lasix ; requiring dialysis, . AC/20/500/40 percent with 5 of PEEP. Sedated with propofol Dex and fentanyl 05/08: Currently on 40%, 5 of PEEP. now on cardene gtt. Patient seen and examined in the [place] [address] ICU. 05/09: VENT [id number]%, 5 of PEEP. Mild pulmonary edema with new small right pleural effusion and basilar opacities. Change central line and send cath tip for cultures. 05/10: VENT [id number]%, 5 of PEEP. Mild pulmonary edema with new small right pleural effusion and basilar opacities. Patient seen and examined in the [place] [id number] ICU 05/11: Continue iv cefepime , add zyvox, sputum culture 05/12: Continue iv cefepime , add zyvox, sputum culture. VENT [id number]%, 5 of PEEP. now on cardene gtt prn 05/13: Did not tolerate sedation vacation 05/11/2021, profoundly hypertensive. ABG/CXR--changes as needed. Continue iv cefepime , add zyvox, sputum culture. VENT [id number]%, 5 of PEEP. Mild pulmonary edema with new small right pleural effusion and basilar opacities. now on cardene gtt prn 05/14: Patient seen and examined at bedside. Remains intubated and sedated planning for tracheostomy tomorrow. Continue current respiratory support; continue antibiotics, continue sedation. Follow recommendations of pulmonary, renal, and infectious disease 05/15: Patient seen and examined at bedside. Remains intubated and sedated planning for tracheostomy today. Continue current respiratory support; continue antibiotics, continue sedation. 05/16: Patient seen and examined at bedside. Underwent tracheostomy yesterday today tolerated well. When seen this morning patient is still notably sedated respiratory status is stable. measures. 05/17: Patient seen and examined at bedside. Attempting to wean sedation. Patient with some diarrhea. Per infectious disease will give erythromycin eye ointment for eye lesions. Nephro and pulm also following. 05/18: Patient seen and examined at bedside. Attempting to increase tube feeds, GI consulted for PEG evaluation. Otherwise no major clinical changes. Continue to wean sedation. Plan of care discussed with bedside nurse. 05/19: Patient seen and examined at bedside. Apparently had a fair bit of vomiting overnight. GI following for PEG evaluation. Otherwise patient remained stable. Plan of care discussed with bedside nurse. 05/20: Patient seen and examined at bedside. Again had multiple bouts of vomiting yesterday. GI continuing to follow for PEG evaluation although on hold right now due to persistent vomiting. Leukocytosis 05/21: Afebrile, no acute events overnight. Remains on vent, FiO2 40%, PEEP 5. S/P tracheostomy on 05/15/2021. KUB on 05/19/2021 consistent with ileus. Per GI, continue NG tube to suction and parenteral nutrition for now. Continue IV antibiotics, per ID. Continue hemodialysis 05/22: Afebrile. On vent with FiO2 40%, PEEP 5. Excessive NG output. Continue NG tube to suction for now; PEG on hold for now. Continue hemodialysis, per nephrology. Continue IV antibiotics, per ID. 05/23: Afebrile. Vent with FiO2 40%, PEEP 5. NG tube for 635 mL out overnight. Continue NG tube to suction. HD 05/24: No acute events overnight. Afebrile. NG tube output has decreased. Kidney function appears stable. Continue IV antibiotics, per ID. [facility], pending insurance authorization. 05/25: Afebrile. On vent with FiO2 40%, PEEP 5. Hemoglobin 8.6 yesterday, hemoglobin 7.3 today. Reportedly had HD yesterday. Continue IV antibiotics, per ID; WBC possibly reactive to ileus. Has been accepted at [facility]; transfer pending, but will need PEG tube placement prior. 05/26: Afebrile. On vent with FiO2 40%, PEEP 5. Hemoglobin 7.3 yesterday, and hemoglobin 7.2 today; continue to trend. Leukocytosis slightly improved, WBC 12.9 today. Has been accepted at [facility]; transfer pending, but will need PEG tube placement prior. 05/27: Afebrile. On vent with FiO2 40%, PEEP 5. Hemoglobin remains stable at 7.2 today; continue to trend. WBC 13.4. Kidney function appears to be stabilized. LTAC transfer is pending PEG tube placement. Off meropenem; will continue to monitor. Kidney function appears to be stable. 05/28: No acute events overnight. Patient doing well on trach with settings of 40% FiO2 and PEEP of 8. Pending PEG placement after ileus is resolved will defer this to GI for timing of PEG placement.. Also pending tunneled catheter placement for dialysis. 05/29: No acute events or night. Patient tolerating trach collar humidified. Saturating at 99%. Pending PICC line placement and IJ central line removal. Per ID. Possibly in not needing HD. Making urine adequately with Lasix as needed. 05/30: No acute events overnight. Patient doing well on trach collar. Hemoglobin decreased down to 6.7 pending 1 unit PRBC transfusion. Restarted on linezolid and Flagyl and cefepime. Pending PICC placement and central line IJ removal. 05/31: No acute events overnight. Patient saturating 100% on trach collar. Hemoglobin improved after 1 unit PRBC transfusion to 8.4. Patient is currently undergoing dialysis and his labs have been stable. Patient's chart, labs, images were reviewed and discussed with RN 06/01: No acute events overnight. Patient saturating well on trach collar. Patient seen and examined bedside and on HD. Hemoglobin trended down from 8.4-7.3. Afebrile in the last 24 hours. Patient's chart, labs, images were reviewed and discussed with RN 06/02: No acute events overnight. Patient saturating 100% on trach collar. Tmax 100.3. Yeast 1 of 4 bottles on blood cultures. Plan to remove central line and dialysis catheter. Family consideration for tunneled catheterization possibly hold. Micafungin was started per ID. 06/03: No acute events overnight. Left IJ placed by IR. Defer to ID for antibiotic management for cultures of the catheter tip and yeast. 06/04: No overnight events afebrile. Sedated on propofol and Precedex. On vent with tracheostomy PEEP 5 FiO2 40%. Being treated for fungemia and receiving TPN. Left IJ CVC functioning well. HD catheter right. 06/05: Afebrile. Still requiring minimal sedation on propofol and Precedex. Requiring vent support via trach PEEP five FiO2 40%. KUB with less gaseous distention. No BM but bowel sounds are audible. 06/06: Afebrile. On minimal sedation with propofol and Precedex and vent support via trach PEEP 5 FiO2 40%. Still in A. fib on telemetry. Catheter tip no growth to date sputum with Mariya. Repeat blood cultures no growth to date 06/07: Afebrile. On minimal sedation propofol and Precedex with for trach PEEP 5 FiO2 40%. He is to be in A. fib. Hb 6.9. Will transfuse with dialysis today. Did have stool smear overnight 06/08: Afebrile. On minimal sedation propofol Precedex tolerated pressure support yesterday back on AC PEEP 5 FiO2 40% use more alert trying to pull out his tracheostomy successfully disconnected himself from the vent. Not easily redirectable. Admits for safety. In A. fib. Labs pending 06/09: Vomited large amount of tube feeding overnight and NG attached to low suction. Remains in A. fib. Minimal sedation with propofol and Precedex. To lerated pressure support back on AC FiO2 40% PEEP 5 getting dialysis currently. 06/11/2021: Patient seen and examined in the ICU. Mitts on for patient safety. Sedated with dexmedetomidine, propofol, and fentanyl. IV TPN hanging. NG tube running at 10 mL per hour. Currently on trach shield 10L. Discussed with RN. Chart reviewed. Vitals/I&O Vitals/I&O: Vital Signs Date Time Temp Pulse Resp B/P (MAP) Pulse Ox O2 Delivery O2 Flow Rate FiO2 06/13/21 08:00 99.2 76 26 96/63 (74) 96 Ventilator 99.2 06/12/21 17:05 10.0 I & O 06/12/21 06/12/21 06/13/21 15:00 23:00 07:00 Intake Total 300 ml 1047 ml 1158 ml Output Total 925 ml 340 ml 255 ml Balance -625 ml 707 ml 903 ml Physical Exam Physical Exam: GENERAL: awake and comfortable off vent HEENT: Normocephalic, atraumatic, redness and erythema of both eyes improved, NG tube present NECK: right dialysis catheter present clean,Lt neck central line changed ( 05/11) Trach + HEART: S1, S2.no gallop LUNGS: Decreased breath sounds. ABDOMEN: Less distended, bowel sounds present GENITOURINARY: Nieves in place. EXTREMITIES: Edema present. DERMATOLOGIC: Warm, dry, no generalized rash. NEUROLOGIC: Opens eyes PICC line clean General: Other (DROWSY) Heart: Regular rate, Normal S1, Normal S2, No murmurs, Gallops Lungs: Clear Abdomen: Normal bowel sounds, Other (ND) Extremities: Other (EDEMA) Skin: No rashes, No breakdown, No significant lesion Labs Labs: Laboratory Tests Test 06/12/21 12:06 06/13/21 01:04 06/13/21 07:14 06/13/21 07:15 Glucose (Fingerstick) 115 mg/dL (70-99) 223 mg/dL (70-99) 164 mg/dL (70-99) White Blood Count 16.7 x10^3/uL (4.0-11.0) Red Blood Count 2.99 x10^6/uL (4.30-5.70) Hemoglobin 8.2 g/dL (13.0-17.5) Hematocrit 25.4 % (39.0-53.0) Mean Corpuscular Volume 85 fL (79-100) Mean Corpuscular Hemoglobin 27 pg (25-35) Mean Corpuscular Hemoglobin Concent 32 g/dL (31-37) Red Cell Distribution Width 17.1 % (11.5-14.5) Platelet Count 389 x10^3/uL (140-400) Neutrophils (%) (Auto) 67 % (31-73) Lymphocytes (%) (Auto) 21 % (24-48) Monocytes (%) (Auto) 10 % (0-9) Eosinophils (%) (Auto) 2 % (0-3) Basophils (%) (Auto) 1 % (0-3) Neutrophils # (Auto) 11.2 x10^3/uL (1.8-7.7) Lymphocytes # (Auto) 3.4 x10^3/uL (1.0-4.8) Monocytes # (Auto) 1.7 x10^3/uL (0.0-1.1) Eosinophils # (Auto) 0.3 x10^3/uL (0.0-0.7) Basophils # (Auto) 0.1 x10^3/uL (0.0-0.2) Sodium Level 140 mmol/L (136-145) Potassium Level 4.7 mmol/L (3.5-5.1) Chloride Level 105 mmol/L (98-107) Carbon Dioxide Level 28 mmol/L (21-32) Anion Gap 7 (6-14) Blood Urea Nitrogen 41 mg/dL (8-26) Creatinine 2.1 mg/dL (0.7-1.3) Estimated GFR (Cockcroft-Gault) 37.5 Glucose Level 167 mg/dL (70-99) Calcium Level 8.5 mg/dL (8.5-10.1) Assessment and Plan Assessmemt and Plan Problems Medical Problems: (1) Elevated troponin Status: Acute (2) Person under investigation for COVID-19 Status: Acute (3) Pulmonary edema Status: Acute Respiratory failure requiring intubation COVID-19 Acute [place] A. fib SIRS Hypertension with hypertensive urgency Hyperlipidemia CKD Diabetes History of bilateral subclavian stenosis History of marijuana use Severe protein calorie malnutrition Trach placed on May 15 GI consulted for PEG evaluation --> patient with a lot of vomiting yesterday thus current NG tube to low intermittent suction Anemia secondary to acute blood loss, possible multiple lab draws and related to advanced CKD Positive yeast on 1 out of 4 bottles on blood cultures Plan: 1) ICU monitoring 2) Continue trach shield (started on 06/10) 3) Continue IV sedation with dexmedetomidine, propofol, and fentanyl 4) Appreciate subspecialty input we will continue COVID protocol 5) Continue IV TPN 6) SCD for DVT prophylaxis 7) Prognosis guarded CC time 31 minutes Comment Review of Relevant I have reviewed the following items juanita (where applicable) has been applied. Medications: Current Medications Medications (Trade) Dose Ordered Sig/Jodie Route PRN Reason Start Time Stop Time Status Last Admin Dose Admin Albumin Human 200 ml @ 200 mls/hr 1X PRN PRN IV Hypotension 06/12/21 09:30 06/12/21 15:29 DC 06/12/21 09:30 Sodium Chloride 80 meq/Potassium Chloride 30 meq/ Potassium Phosphate 10 mmol/ Magnesium Sulfate 8 meq/ Multivitamins 5 ml/Zinc/Copper/ Manganese/ Selenium 1 ml/ Total Parenteral Nutrition/Amino Acids/Dextrose/ Fat Emulsion Intravenous 1,440 ml @ 60 mls/hr TPN CONT IV 06/12/21 22:00 06/13/21 21:59 06/12/21 21:56 Justifications for Admission General Conditions Altered mental status?: Yes Justification of admission: Patient has tachycardia (> 100 beats per minute) or hypotension (SBP < 90 mm Hg) leading to inadequate systemic perfusion as indicated by severe/persistent altered mental status. Other Justification ELENI RENTERIA III DO Jun 13, 2021 08:51
[2021-06-13 09:03] LABS: FIO2 ABG 40% VENT
[2021-06-13] MEDS: INSULIN GLARGINE SYRINGE. SQ SCH (09:05)
--- NOTE | 2021-06-13 09:26 | PDOC ---
PULMONARY PROGRESS NOTES DATE: 06/13/21 TIME: 09:25 Subjective Patient did okay on pressure support yesterday Currently on assist control Ileus persist, n.p.o. Vitals Vital Signs Date Time Temp Pulse Resp B/P (MAP) Pulse Ox O2 Delivery O2 Flow Rate FiO2 06/13/21 09:22 100 Ventilator 06/13/21 09:00 63 28 88/55 (66) 06/13/21 08:00 99.2 99.2 06/12/21 17:05 10.0 Comments Tracheostomy ros unable to obtain General: No acute distress Lungs: Clear Cardiovascular: S1, S2 Abdomen: Soft, Other (Nontender) Neuro Exam: Alert Extremities: Other (1+ edema) Skin: Warm Labs Laboratory Tests Test 06/11/21 12:04 06/11/21 17:41 06/12/21 00:41 06/12/21 06:20 Glucose (Fingerstick) 137 mg/dL (70-99) 174 mg/dL (70-99) 134 mg/dL (70-99) White Blood Count 10.6 x10^3/uL (4.0-11.0) Red Blood Count 2.71 x10^6/uL (4.30-5.70) Hemoglobin 7.7 g/dL (13.0-17.5) Hematocrit 23.2 % (39.0-53.0) Mean Corpuscular Volume 86 fL (79-100) Mean Corpuscular Hemoglobin 28 pg (25-35) Mean Corpuscular Hemoglobin Concent 33 g/dL (31-37) Red Cell Distribution Width 17.1 % (11.5-14.5) Platelet Count 303 x10^3/uL (140-400) Neutrophils (%) (Auto) 48 % (31-73) Lymphocytes (%) (Auto) 25 % (24-48) Monocytes (%) (Auto) 12 % (0-9) Eosinophils (%) (Auto) 13 % (0-3) Basophils (%) (Auto) 2 % (0-3) Neutrophils # (Auto) 5.1 x10^3/uL (1.8-7.7) Lymphocytes # (Auto) 2.6 x10^3/uL (1.0-4.8) Monocytes # (Auto) 1.3 x10^3/uL (0.0-1.1) Eosinophils # (Auto) 1.4 x10^3/uL (0.0-0.7) Basophils # (Auto) 0.2 x10^3/uL (0.0-0.2) Sodium Level 142 mmol/L (136-145) Potassium Level 4.0 mmol/L (3.5-5.1) Chloride Level 108 mmol/L (98-107) Carbon Dioxide Level 27 mmol/L (21-32) Anion Gap 7 (6-14) Blood Urea Nitrogen 53 mg/dL (8-26) Creatinine 2.5 mg/dL (0.7-1.3) Estimated GFR (Cockcroft-Gault) 30.7 Glucose Level 180 mg/dL (70-99) Calcium Level 8.2 mg/dL (8.5-10.1) Phosphorus Level 4.4 mg/dL (2.6-4.7) Magnesium Level 2.5 mg/dL (1.8-2.4) Test 06/12/21 06:28 06/12/21 12:06 06/13/21 01:04 06/13/21 07:14 Glucose (Fingerstick) 181 mg/dL (70-99) 115 mg/dL (70-99) 223 mg/dL (70-99) 164 mg/dL (70-99) Test 06/13/21 07:15 06/13/21 08:30 White Blood Count 16.7 x10^3/uL (4.0-11.0) Red Blood Count 2.99 x10^6/uL (4.30-5.70) Hemoglobin 8.2 g/dL (13.0-17.5) Hematocrit 25.4 % (39.0-53.0) Mean Corpuscular Volume 85 fL (79-100) Mean Corpuscular Hemoglobin 27 pg (25-35) Mean Corpuscular Hemoglobin Concent 32 g/dL (31-37) Red Cell Distribution Width 17.1 % (11.5-14.5) Platelet Count 389 x10^3/uL (140-400) Neutrophils (%) (Auto) 67 % (31-73) Lymphocytes (%) (Auto) 21 % (24-48) Monocytes (%) (Auto) 10 % (0-9) Eosinophils (%) (Auto) 2 % (0-3) Basophils (%) (Auto) 1 % (0-3) Neutrophils # (Auto) 11.2 x10^3/uL (1.8-7.7) Lymphocytes # (Auto) 3.4 x10^3/uL (1.0-4.8) Monocytes # (Auto) 1.7 x10^3/uL (0.0-1.1) Eosinophils # (Auto) 0.3 x10^3/uL (0.0-0.7) Basophils # (Auto) 0.1 x10^3/uL (0.0-0.2) Sodium Level 140 mmol/L (136-145) Potassium Level 4.7 mmol/L (3.5-5.1) Chloride Level 105 mmol/L (98-107) Carbon Dioxide Level 28 mmol/L (21-32) Anion Gap 7 (6-14) Blood Urea Nitrogen 41 mg/dL (8-26) Creatinine 2.1 mg/dL (0.7-1.3) Estimated GFR (Cockcroft-Gault) 37.5 Glucose Level 167 mg/dL (70-99) Calcium Level 8.5 mg/dL (8.5-10.1) O2 Saturation 93 % (92-99) Arterial Blood pH 7.44 (7.35-7.45) Arterial Blood pCO2 at Patient Temp 34 mmHg (35-46) Arterial Blood pO2 at Patient Temp 71 mmHg (65-108) Arterial Blood HCO3 23 mmol/L (21-28) Arterial Blood Base Excess -1 mmol/L (-3-3) FiO2 40% vent Laboratory Tests Test 06/12/21 12:06 06/13/21 01:04 06/13/21 07:14 06/13/21 07:15 Glucose (Fingerstick) 115 mg/dL (70-99) 223 mg/dL (70-99) 164 mg/dL (70-99) White Blood Count 16.7 x10^3/uL (4.0-11.0) Red Blood Count 2.99 x10^6/uL (4.30-5.70) Hemoglobin 8.2 g/dL (13.0-17.5) Hematocrit 25.4 % (39.0-53.0) Mean Corpuscular Volume 85 fL (79-100) Mean Corpuscular Hemoglobin 27 pg (25-35) Mean Corpuscular Hemoglobin Concent 32 g/dL (31-37) Red Cell Distribution Width 17.1 % (11.5-14.5) Platelet Count 389 x10^3/uL (140-400) Neutrophils (%) (Auto) 67 % (31-73) Lymphocytes (%) (Auto) 21 % (24-48) Monocytes (%) (Auto) 10 % (0-9) Eosinophils (%) (Auto) 2 % (0-3) Basophils (%) (Auto) 1 % (0-3) Neutrophils # (Auto) 11.2 x10^3/uL (1.8-7.7) Lymphocytes # (Auto) 3.4 x10^3/uL (1.0-4.8) Monocytes # (Auto) 1.7 x10^3/uL (0.0-1.1) Eosinophils # (Auto) 0.3 x10^3/uL (0.0-0.7) Basophils # (Auto) 0.1 x10^3/uL (0.0-0.2) Sodium Level 140 mmol/L (136-145) Potassium Level 4.7 mmol/L (3.5-5.1) Chloride Level 105 mmol/L (98-107) Carbon Dioxide Level 28 mmol/L (21-32) Anion Gap 7 (6-14) Blood Urea Nitrogen 41 mg/dL (8-26) Creatinine 2.1 mg/dL (0.7-1.3) Estimated GFR (Cockcroft-Gault) 37.5 Glucose Level 167 mg/dL (70-99) Calcium Level 8.5 mg/dL (8.5-10.1) Test 06/13/21 08:30 O2 Saturation 93 % (92-99) Arterial Blood pH 7.44 (7.35-7.45) Arterial Blood pCO2 at Patient Temp 34 mmHg (35-46) Arterial Blood pO2 at Patient Temp 71 mmHg (65-108) Arterial Blood HCO3 23 mmol/L (21-28) Arterial Blood Base Excess -1 mmol/L (-3-3) FiO2 40% vent Medications Active Scripts Medications Dose Route/Sig Max Daily Dose Days Date Category Glyburide 2.5 Mg Tablet 1 Tab PO DAILY 14 04/19/21 Rx Polyethylene Glycol 3350 17 Gm Powd.pack 17 Gm PO DAILY 14 04/19/21 Rx Dok (Docusate Sodium) 100 Mg Capsule 100 Mg PO PRN DAILY PRN 30 04/19/21 Rx Bisacodyl 5 Mg Tablet.dr 5 Mg PO PRN DAILY PRN 04/19/21 Rx Acetaminophen 325 Mg Tablet 650 Mg PO PRN Q4HRS PRN 04/19/21 Rx Aspirin Ec (Aspirin) 81 Mg Tablet.dr 81 Mg PO DAILYWBKFT 04/19/21 Rx Hydralazine Hcl 25 Mg Tablet 25 Mg PO QID 30 04/19/21 Rx Fenofibrate 54 Mg Tablet 1 Tab PO DAILY 04/17/21 Reported Potassium Chloride (Potassium Chloride) 20 Meq Tablet.er 20 Meq PO DAILY 04/17/21 Reported Coreg (Carvedilol) 12.5 Mg Tablet 37.5 Mg PO BIDWMEALS 04/17/21 Reported Rosuvastatin Calcium 40 Mg Tablet 40 Mg PO QHS 04/17/21 Reported Gabapentin (Gabapentin) 100 Mg Capsule 200 Mg PO BID 04/17/21 Reported Montelukast Sodium Tablet (Montelukast Sodium) 10 Mg Tablet 10 Mg PO HS 04/17/21 Reported Protonix (Pantoprazole Sodium) 20 Mg Tablet.dr 2 Tab PO DAILY 04/17/21 Reported Amlodipine Besylate 5 Mg Tablet 5 Mg PO DAILY 04/17/21 Reported Furosemide 40 Mg Tablet 1 Tab PO DAILY 04/17/21 Reported Proair Hfa Inhaler (Albuterol Sulfate) 8.5 Gm Hfa.aer.ad 2 Puff IH PRN Q4-6HRS PRN 04/16/21 Reported Advair 100-50 Diskus (Fluticasone/Salmeterol) 1 Each Disk.w.dev 1 Puff IH BID 04/16/21 Reported Comments Impression . IMPRESSION: 1. Acute hypoxic respiratory failure, multifactorial/COVID-19 viral pneumonia/ARDS, ongoing, intubated 04/25/2021, now status post tracheostomy 05/15/[address] chest with bilateral diffuse interstitial infiltrates without any significant pleural effusion 3. Leukocytosis, sepsis--improved 4. Non-ST segment elevation CA 5. History of tobacco use, suspect COPD, unknown FEV1 6. Chronic kidney disease.== HD as needed per renal 7. Metabolic acidosis multifactorial, improved 8. Abnormal chest x-ray, compatible with ARDS CHF 9. Hypoglycemia, continue to monitor--- resolved 10. Hypotension, suspect volume deficit,/possible sepsis--- resolved 11. Fever--improved 12. Anemia--improved 13. Atrial fibrillation with rapid ventricular response, currently rate controlled 14. Ileus 15. Type 2 diabetes 16. A. fib Plan . Updated 06/13 Hemoglobin stable Follow GI input Hemodialysis per Dr. Ariza We will attempt pressure support Antibiotics per ID Updated 06/12 Continue current trach shield Hemodialysis daily per nephrology, discussed with Dr. Ariza On the chest x-ray Increase tube feeding as tolerated Follow GI input Patient continues to be critically ill, assist-control ventilation in the evening. Hemoglobin stable Updated 06/11 Continue IV Diflucan per ID Monitor labs and cultures Continue trach shield as tolerated, AC vent Monitor chest x-ray DVT GI prophylaxis Nutritional support per GI, patient with ileus appears to be clinically improving Total cumulative critical care time of 30 minutes with no overlap ADELSO AVILA MD Jun 13, 2021 09:26
--- NOTE | 2021-06-13 09:29 | PDOC ---
Date of Service: DATE: 06/13/21 TIME: 09:25 Objective: Objective: D/w nurse - just hooked to LIS, ~300cc clearish output right away, abdomen was harder today, breathing different, no stools. Vital Signs: Vital Signs Date Time Temp Pulse Resp B/P (MAP) Pulse Ox O2 Delivery O2 Flow Rate FiO2 06/13/21 09:22 100 Ventilator 06/13/21 09:00 63 28 88/55 (66) 06/13/21 08:00 99.2 99.2 06/12/21 17:05 10.0 Labs: Laboratory Tests Test 06/12/21 12:06 06/13/21 01:04 06/13/21 07:14 06/13/21 07:15 Glucose (Fingerstick) 115 mg/dL 223 mg/dL 164 mg/dL White Blood Count 16.7 x10^3/uL Red Blood Count 2.99 x10^6/uL Hemoglobin 8.2 g/dL Hematocrit 25.4 % Mean Corpuscular Volume 85 fL Mean Corpuscular Hemoglobin 27 pg Mean Corpuscular Hemoglobin Concent 32 g/dL Red Cell Distribution Width 17.1 % Platelet Count 389 x10^3/uL Neutrophils (%) (Auto) 67 % Lymphocytes (%) (Auto) 21 % Monocytes (%) (Auto) 10 % Eosinophils (%) (Auto) 2 % Basophils (%) (Auto) 1 % Neutrophils # (Auto) 11.2 x10^3/uL Lymphocytes # (Auto) 3.4 x10^3/uL Monocytes # (Auto) 1.7 x10^3/uL Eosinophils # (Auto) 0.3 x10^3/uL Basophils # (Auto) 0.1 x10^3/uL Sodium Level 140 mmol/L Potassium Level 4.7 mmol/L Chloride Level 105 mmol/L Carbon Dioxide Level 28 mmol/L Anion Gap 7 Blood Urea Nitrogen 41 mg/dL Creatinine 2.1 mg/dL Estimated GFR (Cockcroft-Gault) 37.5 Glucose Level 167 mg/dL Calcium Level 8.5 mg/dL Test 06/13/21 08:30 O2 Saturation 93 % Arterial Blood pH 7.44 Arterial Blood pCO2 at Patient Temp 34 mmHg Arterial Blood pO2 at Patient Temp 71 mmHg Arterial Blood HCO3 23 mmol/L Arterial Blood Base Excess -1 mmol/L FiO2 40% vent PE: GEN: chronically ill LUNGS: trach/vent HEART: RRR ABD: large, perhaps slightly more distended than yesterday, +hernia, a few quiet gurgles NEURO/PSYCH: A & O 3 A/P: COVID-19/resp failure s/p tracheostomy Prolonged ileus -- Will review w/ Dr. Hauser. Justicifation of Admission Dx: Justifications for Admission: Justification of Admission Dx: Yes Aspiration Pneumonia: Hemodynamic Instability TAIWO THEODORE Jun 13, 2021 09:29
[2021-06-13] MEDS ORDERED: ALBUMIN HUMAN 25% 100 ML IV PRN (09:45)
[2021-06-13] MEDS ORDERED: IV NORMAL SALINE 1000ML BAG 1,000 ML IV PRN ×2 (09:45)
[2021-06-13] MEDS ORDERED: DIALYSIS PATIENT. MC PRN ×2 (09:45)
--- NOTE | 2021-06-13 10:29 | PDOC ---
Renal-Progress Notes Subjective Notes Notes SAME History of Present Illness Hx of present illness UNCHANGED Vitals Vitals Vital Signs Date Time Temp Pulse Resp B/P (MAP) Pulse Ox O2 Delivery O2 Flow Rate FiO2 06/13/21 10:00 73 28 92/52 (65) 99 Ventilator 06/13/21 08:00 99.2 99.2 06/12/21 17:05 10.0 Weight Weight [ ] I.O. Intake and Output Intake and Output 06/13/21 07:00 Intake Total 2505 ml Output Total 1520 ml Balance 985 ml Intake Oral 0 ml IV Total 2505 ml Tube Feeding 0 ml Output Urine Total 970 ml Gastric Drainage Total 550 ml Labs Labs Laboratory Tests Test 06/12/21 12:06 06/13/21 01:04 06/13/21 07:14 06/13/21 07:15 Glucose (Fingerstick) 115 mg/dL (70-99) 223 mg/dL (70-99) 164 mg/dL (70-99) White Blood Count 16.7 x10^3/uL (4.0-11.0) Red Blood Count 2.99 x10^6/uL (4.30-5.70) Hemoglobin 8.2 g/dL (13.0-17.5) Hematocrit 25.4 % (39.0-53.0) Mean Corpuscular Volume 85 fL (79-100) Mean Corpuscular Hemoglobin 27 pg (25-35) Mean Corpuscular Hemoglobin Concent 32 g/dL (31-37) Red Cell Distribution Width 17.1 % (11.5-14.5) Platelet Count 389 x10^3/uL (140-400) Neutrophils (%) (Auto) 67 % (31-73) Lymphocytes (%) (Auto) 21 % (24-48) Monocytes (%) (Auto) 10 % (0-9) Eosinophils (%) (Auto) 2 % (0-3) Basophils (%) (Auto) 1 % (0-3) Neutrophils # (Auto) 11.2 x10^3/uL (1.8-7.7) Lymphocytes # (Auto) 3.4 x10^3/uL (1.0-4.8) Monocytes # (Auto) 1.7 x10^3/uL (0.0-1.1) Eosinophils # (Auto) 0.3 x10^3/uL (0.0-0.7) Basophils # (Auto) 0.1 x10^3/uL (0.0-0.2) Sodium Level 140 mmol/L (136-145) Potassium Level 4.7 mmol/L (3.5-5.1) Chloride Level 105 mmol/L (98-107) Carbon Dioxide Level 28 mmol/L (21-32) Anion Gap 7 (6-14) Blood Urea Nitrogen 41 mg/dL (8-26) Creatinine 2.1 mg/dL (0.7-1.3) Estimated GFR (Cockcroft-Gault) 37.5 Glucose Level 167 mg/dL (70-99) Calcium Level 8.5 mg/dL (8.5-10.1) Test 06/13/21 08:30 O2 Saturation 93 % (92-99) Arterial Blood pH 7.44 (7.35-7.45) Arterial Blood pCO2 at Patient Temp 34 mmHg (35-46) Arterial Blood pO2 at Patient Temp 71 mmHg (65-108) Arterial Blood HCO3 23 mmol/L (21-28) Arterial Blood Base Excess -1 mmol/L (-3-3) FiO2 40% vent Micro Micro Microbiology 06/02/21 Gram Stain - Final, Complete 06/02/21 Aerobic Culture - Final, Complete 06/02/21 Blood Culture - Final, Complete NO GROWTH AFTER 5 DAYS 05/30/21 Gram Stain Evaluation - Final, Complete 05/30/21 Respiratory Culture - Final, Complete Review of Systems Constitutional: yes: unresponsive, other Physical Exam General Appearance: no apparent distress, other (ON THE VENT) Skin: warm, dry, edema Respiratory: decreased breath sounds Heart: S1S2 Abdomen: soft, N/T, distension, other Genitourinary: bladder flat, mooney catheter Extremities: pulses present, edema Neurology: other (sedated) Musculoskeletal: Other Assessment Assessment IMP NEW FUNGEMIA HYPONATREMIA-RESOLVED HYPOKALEMIA LOW PO4-CORRECTED LOW MAG-CORRECTED [id number] UO BUT NO CLEARANCE CKD - SUSPECT STAGE 3 ACUTE HYPOXIC RESP FAILURE COVID 19 PNEUMONIA MET ACIDOSIS-BETTER LEUCOCYTOSIS ANEMIA S/P TRACH ANASARCA ILEUS PLAN RESP SUPPORT HD AGAIN TODAY UF TOLERATED ALBUMIN PRIOR TO HD TO HELP UF AND BP WILL NEED DAILY HD DUE TO EDEMA ANTIBIOTICS ANTIFUNGALS CONT TPN WILL FOLLOW NEWTON,JEANINE S MD Jun 13, 2021 10:29
[2021-06-13] MEDS: TPN PER PHARMACY MC PRN (11:09)
--- NOTE | 2021-06-13 11:10 | NUR ---
Pharmacy TPN Dosing Note S: NILAM LAN is a 75 year old M Currently receiving Central Continuous TPN started 05/22/21 B:Pertinent PMH: ILEUS Height: 6 feet, 2 inches Weight: 140.9 kg Current diet: NPO LABS: Sodium: 142 Potassium: 4.7 Chloride: 105 Calcium: 8.5 Corrected Calcium: 10.34 Magnesium: 2.5 CO2: 28 SCr: 2.1 Glucose: 167 Albumin: 1.7 AST: 31 ALT: 26 TPN FORMULA: TPN TYPE: Central Continuous AMINO ACIDS: 110 gm DEXTROSE: 295 gm LIPIDS: 40 gm SODIUM CHLORIDE: 80 mEq SODIUM ACETATE: - mEq SODIUM PHOSPHATE: - mmol POTASSIUM CHLORIDE: 10 mEq POTASSIUM ACETATE: - mEq POTASSIUM PHOSPHATE: 10 mmol MAGNESIUM: 8 mEq CALCIUM: 0 mEq INSULIN: - units MULTIPLE VITAMIN: 5 ml TRACE ELEMENTS: 1 ml(s) TPN PLAN: K up to 4.7, HD today and will decrease KCL to 10meq No mag or phos avail today, will order for tomorrow R: Continue TPN as written above. Will monitor electrolytes, glucose, and tolerance to TPN. CAMRYN HERNANDEZ [facility], 06/13/21 1110
[2021-06-13] MEDS ORDERED: ALBUMIN HUMAN 25% 100 ML IV ONE (12:45)
--- NOTE | 2021-06-13 15:49 | NUR ---
SS following up with discharge planning. SS reviewed pt chart and discussed with pt RN. Pt is currently on trach shield at 40% and pressure support at HS at 40%. Pt on TPN and IV Fluconazole. Hemodialysis. NG clamped. Pt on Precedex and Propofol. SS discussed with [facility] and [facility] stating that unless pt is able to get a PEG tube they will not accept due to cost of TPN. SS contacted pt's granddabinta, Annika, and [phone], and discussed. Annika reported understanding and is agreeable to referral to [facility], ; fax [phone], at this time. SS phoned and faxed referral to [facility]. SS will continue to follow for discharge planning.
--- NOTE | 2021-06-13 17:23 | NUR ---
Wound Care Wound Type/Assessment: Wound care follow up for right plantar foot DFU. Patient continues with a large, intact blood blister on plantar side of right foot, tissue is stable with no openings, periwound intact and clear. No other wounds noted on head to toe skin assessment. Pt continues to be intubated but able to turn from side to side per RN Treatment Recommendations/Plan: Continue to skin prep R foot periwound, foam dressing was applied for protection. Recommend change every 3-4 days. Education provided: pt intubated, unable to educate, POC discussed with staffing director Offloading surface/device: wedge, ICU bed (will need P500 bed after he leaves ICU), float feet with pillows and wedge, recommend to remove end bedrail or elevate feet on purple wedge to avoid pt touching bed due to his height. Recommended Referrals/Tests: None Discharge Recommendations for dressings: Same as above, wound care will follow up on 06/20
[2021-06-13] MEDS: ATORVASTATIN CALCIUM 40 MG TABLET. PO SCH (21:00)
[2021-06-13] MEDS: MONTELUKAST SODIUM 10 MG TABLET. PO SCH (21:00)
[2021-06-13] MEDS ORDERED: [UNRECOGNIZED DRUG - OTHER] IV SCH (22:00)
[2021-06-13] MEDS ORDERED: AMINO ACID IV SCH (22:00)
[2021-06-13] MEDS ORDERED: TOTAL PARENTERAL NUTRITION IV SCH (22:00)
[2021-06-13] MEDS ORDERED: DEXTROSE 70% IV SCH (22:00)
[2021-06-14] VITALS (24 sets, daily range): BP systolic 76–185; BP diastolic 47–101
[2021-06-14] MEDS: NYSTATIN TOPICAL POWDER 15GM BOTTLE. TP SCH ×3 (01:04→21:32)
[2021-06-14] MEDS: METOPROLOL IV PUSH 5 MG/5 ML VIAL. IVP SCH ×5 (01:06→23:14)
[2021-06-14] MEDS: INSULIN GLARGINE SYRINGE. SQ SCH ×3 (01:12→20:49)
[2021-06-14] MEDS: INSULIN LISPRO 300 UNITS/3 ML VIAL. SQ SCH ×8 (01:17→18:00)
[2021-06-14] MEDS: DEXMEDETOMIDINE 400 MCG in IV NORMAL SALINE 100ML 96 ML IV PRN ×5 (01:31→18:52)
[2021-06-14] MEDS: PROPOFOL 100 ML IV PRN ×2 (04:26→13:15)
[2021-06-14 07:18] LABS: BASO # 0.5 x10^3/uL (0.0-0.2); BASO % 3 % (0-3); EOS # 0.6 x10^3/uL (0.0-0.7); EOS % 4 % (0-3); HEMATOCRIT 23.4 % (39.0-53.0); HEMOGLOBIN 7.5 g/dL (13.0-17.5); LYMPH # 4.4 x10^3/uL (1.0-4.8); LYMPH % 26 % (24-48); MEAN CORPUSCULAR HEMOGLOBIN 27 pg (25-35); MEAN CORPUSCULAR HGB CONC 32 g/dL (31-37); MEAN CORPUSCULAR VOLUME 85 fL (79-100); MONO # 2.1 x10^3/uL (0.0-1.1); MONO % 12 % (0-9); NEUT # 9.3 x10^3/uL (1.8-7.7); NEUT % 55 % (31-73); PLATELET COUNT 339 x10^3/uL (140-400); RED BLOOD COUNT 2.77 x10^6/uL (4.30-5.70); RED CELL DISTRIBUTION WIDTH 17.1 % (11.5-14.5)
[2021-06-14 07:36] LABS: CALCIUM 8.7 mg/dL (8.5-10.1); CREATININE 2.2 mg/dL (0.7-1.3); GFR 35.6; PHOSPHORUS 2.5 mg/dL (2.6-4.7); POTASSIUM 3.8 mmol/L (3.5-5.1)
[2021-06-14] MEDS: TPN PER PHARMACY MC PRN ×2 (08:11→13:06)
--- NOTE | 2021-06-14 08:32 | PDOC ---
Infectious Disease Note Subjective Subjective Patient is awake little agitated on ventilator ROS ROS No nausea vomiting diarrhea Vital Sign Vital Signs Vital Signs Date Time Temp Pulse Resp B/P (MAP) Pulse Ox O2 Delivery O2 Flow Rate FiO2 06/14/21 07:34 93 Ventilator 06/14/21 06:00 106 35 123/98 (106) 06/14/21 04:00 99.3 99.3 Physical Exam PHYSICAL EXAM GENERAL: awake and comfortable on vent HEENT: Normocephalic, atraumatic, redness and erythema of both eyes improved, NG tube present NECK: right dialysis catheter present clean,Lt neck central line changed ( 05/11) Trach + HEART: S1, S2.no gallop LUNGS: Decreased breath sounds. ABDOMEN: Less distended, bowel sounds present GENITOURINARY: Nieves in place. EXTREMITIES: Edema present. DERMATOLOGIC: Warm, dry, no generalized rash. NEUROLOGIC: Opens eyes PICC line clean Labs Lab Laboratory Tests Test 06/13/21 12:30 06/13/21 17:09 06/14/21 01:14 06/14/21 06:45 Glucose (Fingerstick) 147 mg/dL (70-99) 167 mg/dL (70-99) 219 mg/dL (70-99) White Blood Count 17.0 x10^3/uL (4.0-11.0) Red Blood Count 2.77 x10^6/uL (4.30-5.70) Hemoglobin 7.5 g/dL (13.0-17.5) Hematocrit 23.4 % (39.0-53.0) Mean Corpuscular Volume 85 fL (79-100) Mean Corpuscular Hemoglobin 27 pg (25-35) Mean Corpuscular Hemoglobin Concent 32 g/dL (31-37) Red Cell Distribution Width 17.1 % (11.5-14.5) Platelet Count 339 x10^3/uL (140-400) Neutrophils (%) (Auto) 55 % (31-73) Lymphocytes (%) (Auto) 26 % (24-48) Monocytes (%) (Auto) 12 % (0-9) Eosinophils (%) (Auto) 4 % (0-3) Basophils (%) (Auto) 3 % (0-3) Neutrophils # (Auto) 9.3 x10^3/uL (1.8-7.7) Lymphocytes # (Auto) 4.4 x10^3/uL (1.0-4.8) Monocytes # (Auto) 2.1 x10^3/uL (0.0-1.1) Eosinophils # (Auto) 0.6 x10^3/uL (0.0-0.7) Basophils # (Auto) 0.5 x10^3/uL (0.0-0.2) Sodium Level 140 mmol/L (136-145) Potassium Level 3.8 mmol/L (3.5-5.1) Chloride Level 103 mmol/L (98-107) Carbon Dioxide Level 28 mmol/L (21-32) Anion Gap 9 (6-14) Blood Urea Nitrogen 38 mg/dL (8-26) Creatinine 2.2 mg/dL (0.7-1.3) Estimated GFR (Cockcroft-Gault) 35.6 Glucose Level 193 mg/dL (70-99) Calcium Level 8.7 mg/dL (8.5-10.1) Phosphorus Level 2.5 mg/dL (2.6-4.7) Magnesium Level 2.0 mg/dL (1.8-2.4) Test 06/14/21 06:46 Glucose (Fingerstick) 193 mg/dL (70-99) Micro BLOOD CULTURE LC Final Final FINAL ID= [MANDI PARAPSILOSIS] NO FURTHER WORKUP MANDI PARAPSILOSIS Unless otherwise specified, Testing Performed by: [address] [address] For Inquires, the Physician may contact the Microbiology department at [phone] Objective Assessment Fungemia May 30, 2021, C parapsilosis, 06/02 neg RT IJ central line removed cath tip sent for cult 1. Febrile illness resolved 2. Leukocytosis, was on steroids,ileus could contribute,improving 3. COVID-19 pneumonia. 4. Acute hypoxic respiratory failure status post intubation.Now S/P Trach 8/10 Pleural effusion 5. Congestive heart failure, acute on chronic. 6. Acute kidney injury on chronic kidney disease on hemodialysis. 7. Diabetes mellitus 2. 8. Atrial fibrillation. 9. Anemia. 10. Protein-calorie malnutrition. 11. Hypertention 12.Hyponatremia 13. Ileus, Bowel obstruction Peg TF on hold, OG to LIS 14.on PPN 15.Mild to Moderate Pleural effusion 16.Lt eye conjunctivitis resolved Plan Plan of Care Cont diflucan Monitor labs and cultures lines removed Repeat Bc remain negative from 06/02 Nieves changed 05/30 C. difficile PCR negative Remains critically ill Continue supportive care Prognosis poor Discussed with nursing staff JAD RIVERO MD Jun 14, 2021 08:32
--- NOTE | 2021-06-14 09:28 | PDOC ---
PULMONARY PROGRESS NOTES DATE: 06/14/21 TIME: 09:28 Subjective Spoke with RT, patient did not do well on pressure support yesterday New temperature 102 ID is on the case Currently on assist control Vitals Vital Signs Date Time Temp Pulse Resp B/P (MAP) Pulse Ox O2 Delivery O2 Flow Rate FiO2 06/14/21 07:34 93 Ventilator 06/14/21 06:00 106 35 123/98 (106) 06/14/21 04:00 99.3 99.3 Comments Tracheostomy ros unable to obtain Lungs: Clear Cardiovascular: S1, S2 Abdomen: Soft, Other (Nontender) Extremities: Other (1+ edema) Skin: Warm Labs Laboratory Tests Test 06/12/21 12:06 06/13/21 01:04 06/13/21 07:14 06/13/21 07:15 Glucose (Fingerstick) 115 mg/dL (70-99) 223 mg/dL (70-99) 164 mg/dL (70-99) White Blood Count 16.7 x10^3/uL (4.0-11.0) Red Blood Count 2.99 x10^6/uL (4.30-5.70) Hemoglobin 8.2 g/dL (13.0-17.5) Hematocrit 25.4 % (39.0-53.0) Mean Corpuscular Volume 85 fL (79-100) Mean Corpuscular Hemoglobin 27 pg (25-35) Mean Corpuscular Hemoglobin Concent 32 g/dL (31-37) Red Cell Distribution Width 17.1 % (11.5-14.5) Platelet Count 389 x10^3/uL (140-400) Neutrophils (%) (Auto) 67 % (31-73) Lymphocytes (%) (Auto) 21 % (24-48) Monocytes (%) (Auto) 10 % (0-9) Eosinophils (%) (Auto) 2 % (0-3) Basophils (%) (Auto) 1 % (0-3) Neutrophils # (Auto) 11.2 x10^3/uL (1.8-7.7) Lymphocytes # (Auto) 3.4 x10^3/uL (1.0-4.8) Monocytes # (Auto) 1.7 x10^3/uL (0.0-1.1) Eosinophils # (Auto) 0.3 x10^3/uL (0.0-0.7) Basophils # (Auto) 0.1 x10^3/uL (0.0-0.2) Sodium Level 140 mmol/L (136-145) Potassium Level 4.7 mmol/L (3.5-5.1) Chloride Level 105 mmol/L (98-107) Carbon Dioxide Level 28 mmol/L (21-32) Anion Gap 7 (6-14) Blood Urea Nitrogen 41 mg/dL (8-26) Creatinine 2.1 mg/dL (0.7-1.3) Estimated GFR (Cockcroft-Gault) 37.5 Glucose Level 167 mg/dL (70-99) Calcium Level 8.5 mg/dL (8.5-10.1) Test 06/13/21 08:30 06/13/21 12:30 06/13/21 17:09 06/14/21 01:14 O2 Saturation 93 % (92-99) Arterial Blood pH 7.44 (7.35-7.45) Arterial Blood pCO2 at Patient Temp 34 mmHg (35-46) Arterial Blood pO2 at Patient Temp 71 mmHg (65-108) Arterial Blood HCO3 23 mmol/L (21-28) Arterial Blood Base Excess -1 mmol/L (-3-3) FiO2 40% vent Glucose (Fingerstick) 147 mg/dL (70-99) 167 mg/dL (70-99) 219 mg/dL (70-99) Test 06/14/21 06:45 06/14/21 06:46 White Blood Count 17.0 x10^3/uL (4.0-11.0) Red Blood Count 2.77 x10^6/uL (4.30-5.70) Hemoglobin 7.5 g/dL (13.0-17.5) Hematocrit 23.4 % (39.0-53.0) Mean Corpuscular Volume 85 fL (79-100) Mean Corpuscular Hemoglobin 27 pg (25-35) Mean Corpuscular Hemoglobin Concent 32 g/dL (31-37) Red Cell Distribution Width 17.1 % (11.5-14.5) Platelet Count 339 x10^3/uL (140-400) Neutrophils (%) (Auto) 55 % (31-73) Lymphocytes (%) (Auto) 26 % (24-48) Monocytes (%) (Auto) 12 % (0-9) Eosinophils (%) (Auto) 4 % (0-3) Basophils (%) (Auto) 3 % (0-3) Neutrophils # (Auto) 9.3 x10^3/uL (1.8-7.7) Lymphocytes # (Auto) 4.4 x10^3/uL (1.0-4.8) Monocytes # (Auto) 2.1 x10^3/uL (0.0-1.1) Eosinophils # (Auto) 0.6 x10^3/uL (0.0-0.7) Basophils # (Auto) 0.5 x10^3/uL (0.0-0.2) Sodium Level 140 mmol/L (136-145) Potassium Level 3.8 mmol/L (3.5-5.1) Chloride Level 103 mmol/L (98-107) Carbon Dioxide Level 28 mmol/L (21-32) Anion Gap 9 (6-14) Blood Urea Nitrogen 38 mg/dL (8-26) Creatinine 2.2 mg/dL (0.7-1.3) Estimated GFR (Cockcroft-Gault) 35.6 Glucose Level 193 mg/dL (70-99) Calcium Level 8.7 mg/dL (8.5-10.1) Phosphorus Level 2.5 mg/dL (2.6-4.7) Magnesium Level 2.0 mg/dL (1.8-2.4) Glucose (Fingerstick) 193 mg/dL (70-99) Laboratory Tests Test 06/13/21 12:30 06/13/21 17:09 06/14/21 01:14 06/14/21 06:45 Glucose (Fingerstick) 147 mg/dL (70-99) 167 mg/dL (70-99) 219 mg/dL (70-99) White Blood Count 17.0 x10^3/uL (4.0-11.0) Red Blood Count 2.77 x10^6/uL (4.30-5.70) Hemoglobin 7.5 g/dL (13.0-17.5) Hematocrit 23.4 % (39.0-53.0) Mean Corpuscular Volume 85 fL (79-100) Mean Corpuscular Hemoglobin 27 pg (25-35) Mean Corpuscular Hemoglobin Concent 32 g/dL (31-37) Red Cell Distribution Width 17.1 % (11.5-14.5) Platelet Count 339 x10^3/uL (140-400) Neutrophils (%) (Auto) 55 % (31-73) Lymphocytes (%) (Auto) 26 % (24-48) Monocytes (%) (Auto) 12 % (0-9) Eosinophils (%) (Auto) 4 % (0-3) Basophils (%) (Auto) 3 % (0-3) Neutrophils # (Auto) 9.3 x10^3/uL (1.8-7.7) Lymphocytes # (Auto) 4.4 x10^3/uL (1.0-4.8) Monocytes # (Auto) 2.1 x10^3/uL (0.0-1.1) Eosinophils # (Auto) 0.6 x10^3/uL (0.0-0.7) Basophils # (Auto) 0.5 x10^3/uL (0.0-0.2) Sodium Level 140 mmol/L (136-145) Potassium Level 3.8 mmol/L (3.5-5.1) Chloride Level 103 mmol/L (98-107) Carbon Dioxide Level 28 mmol/L (21-32) Anion Gap 9 (6-14) Blood Urea Nitrogen 38 mg/dL (8-26) Creatinine 2.2 mg/dL (0.7-1.3) Estimated GFR (Cockcroft-Gault) 35.6 Glucose Level 193 mg/dL (70-99) Calcium Level 8.7 mg/dL (8.5-10.1) Phosphorus Level 2.5 mg/dL (2.6-4.7) Magnesium Level 2.0 mg/dL (1.8-2.4) Test 06/14/21 06:46 Glucose (Fingerstick) 193 mg/dL (70-99) Medications Active Scripts Medications Dose Route/Sig Max Daily Dose Days Date Category Glyburide 2.5 Mg Tablet 1 Tab PO DAILY 04/19/21 Rx Polyethylene Glycol 3350 17 Gm Powd.pack 17 Gm PO DAILY 14 04/19/21 Rx Dok (Docusate Sodium) 100 Mg Capsule 100 Mg PO PRN DAILY PRN 30 04/19/21 Rx Bisacodyl 5 Mg Tablet.dr 5 Mg PO PRN DAILY PRN 14 04/19/21 Rx Acetaminophen 325 Mg Tablet 650 Mg PO PRN Q4HRS PRN 14 04/19/21 Rx Aspirin Ec (Aspirin) 81 Mg Tablet.dr 81 Mg PO DAILYWBKFT 30 04/19/21 Rx Hydralazine Hcl 25 Mg Tablet 25 Mg PO QID 30 04/19/21 Rx Fenofibrate 54 Mg Tablet 1 Tab PO DAILY 04/17/21 Reported Potassium Chloride (Potassium Chloride) 20 Meq Tablet.er 20 Meq PO DAILY 04/17/21 Reported Coreg (Carvedilol) 12.5 Mg Tablet 37.5 Mg PO BIDWMEALS 04/17/21 Reported Rosuvastatin Calcium 40 Mg Tablet 40 Mg PO QHS 04/17/21 Reported Gabapentin (Gabapentin) 100 Mg Capsule 200 Mg PO BID 04/17/21 Reported Montelukast Sodium Tablet (Montelukast Sodium) 10 Mg Tablet 10 Mg PO HS 04/17/21 Reported Protonix (Pantoprazole Sodium) 20 Mg Tablet.dr 2 Tab PO DAILY 04/17/21 Reported Amlodipine Besylate 5 Mg Tablet 5 Mg PO DAILY 04/17/21 Reported Furosemide 40 Mg Tablet 1 Tab PO DAILY 04/17/21 Reported Proair Hfa Inhaler (Albuterol Sulfate) 8.5 Gm Hfa.aer.ad 2 Puff IH PRN Q4-6HRS PRN 04/16/21 Reported Advair 100-50 Diskus (Fluticasone/Salmeterol) 1 Each Disk.w.dev 1 Puff IH BID 04/16/21 Reported Comments Impression . IMPRESSION: 1. Acute hypoxic respiratory failure, multifactorial/COVID-19 viral pneu monia/ARDS, ongoing, intubated 04/25/2021, now status post tracheostomy 05/15/[address] chest with bilateral diffuse interstitial infiltrates without any significant pleural effusion 3. Leukocytosis, sepsis 4. Non-ST segment elevation [place] 5. History of tobacco use, suspect COPD, unknown FEV1 6. Chronic kidney disease.== HD as needed per renal 7. Metabolic acidosis multifactorial, improved 8. Abnormal chest x-ray, compatible with ARDS CHF 9. Hypoglycemia, continue to monitor 10. Hypotension multifactorial 11. Fever-- 12. Anemia- 13. Atrial fibrillation with rapid ventricular response, currently rate controlled 14. Ileus 15. Type 2 diabetes 16. A. fib 17. Fever secondary to fungemia Plan . Updated 06/14 Over the last 24 to 48 hours, patient not tolerating any weaning Continues to have a fever Being treated for fungemia Central line removed catheter tip sent for culture Follow nephrology input Hold off weaning Ileus persist Long-term and short-term prognosis is poor Discussed with RT and RN updated 06/13 Hemoglobin stable Follow GI input Hemodialysis per Dr. Ariza We will attempt pressure support Antibiotics per ID Updated 06/12 Continue current trach shield Hemodialysis daily per nephrology, discussed with Dr. Ariza On the chest x-ray Increase tube feeding as tolerated Follow GI input Patient continues to be critically ill, assist-control ventilation in the evening. Hemoglobin stable Updated 06/11 Continue IV Diflucan per ID Monitor labs and cultures Continue trach shield as tolerated, AC vent Monitor chest x-ray DVT GI prophylaxis Nutritional support per GI, patient with ileus appears to be clinically improving Total cumulative critical care time of 30 minutes with no overlap ADELSO AVILA MD Jun 14, 2021 09:28
--- NOTE | 2021-06-14 10:22 | PDOC ---
Renal-Progress Notes Subjective Notes Notes NO CHANGE History of Present Illness Hx of present illness UNCHANGED Vitals Vitals Vital Signs Date Time Temp Pulse Resp B/P (MAP) Pulse Ox O2 Delivery O2 Flow Rate FiO2 06/14/21 07:34 93 Ventilator 06/14/21 06:00 106 35 123/98 (106) 06/14/21 04:00 99.3 99.3 Weight Weight [ ] I.O. Intake and Output Intake and Output 06/14/21 07:00 Intake Total 1164 ml Output Total 2040 ml Balance -876 ml Intake Oral 0 ml IV Total 1164 ml Tube Feeding 0 ml Output Urine Total 690 ml Gastric Drainage Total 1350 ml Labs Labs Laboratory Tests Test 06/13/21 12:30 06/13/21 17:09 06/14/21 01:14 06/14/21 06:45 Glucose (Fingerstick) 147 mg/dL (70-99) 167 mg/dL (70-99) 219 mg/dL (70-99) White Blood Count 17.0 x10^3/uL (4.0-11.0) Red Blood Count 2.77 x10^6/uL (4.30-5.70) Hemoglobin 7.5 g/dL (13.0-17.5) Hematocrit 23.4 % (39.0-53.0) Mean Corpuscular Volume 85 fL (79-100) Mean Corpuscular Hemoglobin 27 pg (25-35) Mean Corpuscular Hemoglobin Concent 32 g/dL (31-37) Red Cell Distribution Width 17.1 % (11.5-14.5) Platelet Count 339 x10^3/uL (140-400) Neutrophils (%) (Auto) 55 % (31-73) Lymphocytes (%) (Auto) 26 % (24-48) Monocytes (%) (Auto) 12 % (0-9) Eosinophils (%) (Auto) 4 % (0-3) Basophils (%) (Auto) 3 % (0-3) Neutrophils # (Auto) 9.3 x10^3/uL (1.8-7.7) Lymphocytes # (Auto) 4.4 x10^3/uL (1.0-4.8) Monocytes # (Auto) 2.1 x10^3/uL (0.0-1.1) Eosinophils # (Auto) 0.6 x10^3/uL (0.0-0.7) Basophils # (Auto) 0.5 x10^3/uL (0.0-0.2) Sodium Level 140 mmol/L (136-145) Potassium Level 3.8 mmol/L (3.5-5.1) Chloride Level 103 mmol/L (98-107) Carbon Dioxide Level 28 mmol/L (21-32) Anion Gap 9 (6-14) Blood Urea Nitrogen 38 mg/dL (8-26) Creatinine 2.2 mg/dL (0.7-1.3) Estimated GFR (Cockcroft-Gault) 35.6 Glucose Level 193 mg/dL (70-99) Calcium Level 8.7 mg/dL (8.5-10.1) Phosphorus Level 2.5 mg/dL (2.6-4.7) Magnesium Level 2.0 mg/dL (1.8-2.4) Test 06/14/21 06:46 Glucose (Fingerstick) 193 mg/dL (70-99) Micro Micro Microbiology 06/02/21 Gram Stain - Final, Complete 06/02/21 Aerobic Culture - Final, Complete 06/02/21 Blood Culture - Final, Complete NO GROWTH AFTER 5 DAYS 05/30/21 Gram Stain Evaluation - Final, Complete 05/30/21 Respiratory Culture - Final, Complete Review of Systems Constitutional: yes: unresponsive, other Physical Exam General Appearance: no apparent distress, other (ON THE VENT) Skin: warm, dry, edema Respiratory: decreased breath sounds Heart: S1S2 Abdomen: soft, N/T, distension, other Genitourinary: bladder flat, mooney catheter Extremities: pulses present, edema Neurology: other (sedated) Musculoskeletal: Other Assessment Assessment IMP FUNGEMIA HYPONATREMIA-RESOLVED HYPOKALEMIA LOW PO4-CORRECTED LOW MAG-CORRECTED [id number] UO BUT NO CLEARANCE CKD - SUSPECT STAGE 3 ACUTE HYPOXIC RESP FAILURE COVID 19 PNEUMONIA MET ACIDOSIS-BETTER LEUCOCYTOSIS ANEMIA S/P TRACH ANASARCA ILEUS PLAN RESP SUPPORT HD AGAIN TODAY UF TOLERATED 4.0 LITERS AGAIN ALBUMIN PRIOR TO HD TO HELP UF AND BP WILL NEED TO CONTINUE DAILY HD DUE TO EDEMA ANTIBIOTICS ANTIFUNGALS CONT TPN WILL FOLLOW JEANINE NEWTON MD Jun 14, 2021 10:22
[2021-06-14] MEDS: PANTOPRAZOLE IV PUSH 40 MG VIAL. IVP SCH (10:34)
[2021-06-14] MEDS: ACETAMINOPHEN 325 MG TABLET. PO PRN (10:36)
[2021-06-14] MEDS: FLUCONAZOLE 200MG/100ML PREMIX 100 ML IV SCH (10:36)
[2021-06-14] MEDS: ASPIRIN CHEWABLE 81 MG TABLET. PO SCH (10:37)
--- NOTE | 2021-06-14 11:17 | PDOC ---
[employer] PROGRESS NOTE Date of Service DOS: DATE: 06/14/21 TIME: 11:16 Chief Complaint Chief Complaint Respiratory failure requiring intubation COVID-19 Acute WI A. fib SIRS Hypertension with hypertensive urgency Hyperlipidemia CKD Diabetes History of bilateral subclavian stenosis History of marijuana use Severe protein calorie malnutrition Trach placed on May 15 GI consulted for PEG evaluation --> patient with a lot of vomiting yesterday thus current NG tube to low intermittent suction Anemia secondary to acute blood loss, possible multiple lab draws and related to advanced CKD Positive yeast on 1 out of 4 bottles on blood cultures History of Present Illness History of Present Illness 06/14/2021 patient seen and examined in the ICU chart reviewed discussed with RN he remains on the vent via tracheostomy vent settings as follows AC/20/500/40 percent with 5 of PEEP has mitts on for patient safety has SCDs on Nieves to bedside drainage sedated with fentanyl propofol and Precedex he remains critically ill 06/13/2021 Patient seen and examined in the ICU Chart reviewed Discussed with RN Vent settings as follows Spontaneous respirations with 40% FiO2 10 of pressure support Sedated with fentanyl propofol and Dex Has Nieves to bedside drainage Mitts for patient safety 06/12/2021 Patient seen and examined in the ICU He is currently on dialysis (dialysis nurse states we took 2 L off today and we plan to do daily dialysis for a few days per Dr. Ariza) Has trach shield in place Chart reviewed Discussed with RN He remains critically ill 06/10: Tolerating 30 cc every 3 hours tube feed with minimal residuals overnight. Remains in A. fib. Abdomen appears a bit more distended, soft. Minimally sedated propofol Precedex on LIVESTOCK COUNTER FiO2 40% PEEP 5. CC time 31 min spent in reviewing chart, labs, and images. Discussed with RN and SW. Mr Cunha is a 75 yo male w/ PMHx CAD, HTN, Hyperlipidemia, subclavian steel syndrome, subclavian stenosis s/p left subclavian sent placement complicated by retroperitoneal hematoma s/p evacuation in 08/2015), asthma, BART, CKD, DM2 who presented from home with home health care noted that he was short of breath and valverde with O2 saturations less than 89% as low as 84% not improved with nasal cannulated oxygen placed on CPAP and brought to ED for further care. He was just discharged from the hospital a week ago on April 19, 2021 for abdominal pain and was going for further cardiac testing with outpatient stress testing scheduled on May 28, 2021. Had echocardiogram April 17, 2021 with normal-appearing EF with moderate concentric LVH no significant valvular abnormalities. WBC 20, Hb 10.7, platelets 268, NA 140, K3.8, BUN 21, CR 2.9, glucose 162, albumin 3, troponin I 1.372, NT proBNP 33,318. EKG appears sinus tachycardia rate of 105 bpm with multiple PACs small ST depressions in lead II and V5. TWI in V6. Chest radiograph with diffuse interstitial and alveolar opacities and ET tube 5.8 cm above the leilani. Due to worsening respiratory status ED physician elected to intubate patient. Seen postintubation. Blood pressure little low after propofol bolus, but improved. Significant white frothy sputum per ET tube. Admitted to ICU for further care 04/25: On vent FiO2 50, PEEP 5. Febrile, T-max 103.3. Patient was initiated on cooling blankets. Procalcitonin 0.13. 04/26: COVID-19 positive. Febrile overnight that was managed with cooling blankets. On vent with FiO2 50%, PEEP 5. Per cardiology, elevated troponins likely secondary to demand ischemia; continue heparin drip per cardiology. Continue treatment with remdesivir, steroids, and antibiotics. 04/27: Afebrile. Vent with FiO2 50%, PEEP 5. Troponin 2.8 yesterday; probable type II, demand ischemia. New onset A. fib. Cont heparin gtt and prn digoxin, per cardiology. Contnue treatment with remdesivir, steroids, and prophylactic antibiotics. BG 323 this morning; will add basal insulin. 04/28: Afebrile. FiO2 50%, PEEP 5. Nontunneled HD catheter placed yesterday due to worsening kidney function; eGFR 16 (CKD4). Chest x-ray showed unchanged interstitial opacities. Continue empiric antibiotics, steroids, and remdesivir. Continue heparin infusion, for new dx A. fib. 04/29: Afebrile, remains on vent at FiO2 45%, PEEP 5. WBC 20.4. Hemodialysis per nephrology. We will continue treatment with empiric antibiotics, remdesivir, and steroids. Continue heparin infusion and supportive care. 04/30: Patient seen and examined in the COVID-19 ICU. He remains on the vent. AC/20/500/40 5% with 5 PEEP. Currently on dialysis. Has OG feeds running. Has a Nieves to bedside drainage. Sedated with propofol and fentanyl. He remains critically ill 05/01: Patient seen and examined in the [place] [address] ICU. He is still intubated. AC/20/500/40 percent with 5 of PEEP. In A. fib. Sedated with propofol fentanyl and Versed. Has a heparin drip 05/02: Patient seen and examined in the [place] [address] ICU. He is sedated with propofol fentanyl and Versed. AC/20/500/40 percent with 5 of PEEP. He remains critically ill 05/03: Patient seen and examined in the [place] [address] ICU. He is still intubated. AC/20/500/70 percent with 5 of PEEP. Sedated with fentanyl Versed and propofol. Remains critically ill 05/04: Patient seen and examined in the [place] [address] ICU. Still intubated. Sedated with propofol and fentanyl. AC/20/500/70 percent with 5 of PEEP. On dialysis currently 05/05: Patient seen and examined in the [place] [address] ICU. He remains on the vent. AC/20/500/40 percent with 5 of PEEP. He remains critically ill 05/06: Patient seen and examined in the [place] [address] ICU. He remains mechanically ventilated. AC/20/500/40 05/07: Patient seen and examined in the [place] [address] ICU. He remains mechanically ventilated. ILDA on CKD - ATN 2/2 sepsis/ Hypotension,UOP good,on IV Lasix ; requiring dialysis, . AC/20/500/40 percent with 5 of PEEP. Sedated with propofol Dex and fentanyl 05/08: Currently on 40%, 5 of PEEP. now on cardene gtt. Patient seen and examined in the [place] [address] ICU. 05/09: VENT %, 5 of PEEP. Mild pulmonary edema with new small right pleural effusion and basilar opacities. Change central line and send cath tip for cultures. 05/10: VENT %, 5 of PEEP. Mild pulmonary edema with new small right pleural effusion and basilar opacities. Patient seen and examined in the [place] [id number] ICU 05/11: Continue iv cefepime , add zyvox, sputum culture 05/12: Continue iv cefepime , add zyvox, sputum culture. VENT vecacct86%, 5 of PEEP. now on cardene gtt prn 05/13: Did not tolerate sedation vacation 05/11/2021, profoundly hypertensive. ABG/CXR--changes as needed. Continue iv cefepime , add zyvox, sputum culture. VENT %, 5 of PEEP. Mild pulmonary edema with new small right pleural effusion and basilar opacities. now on cardene gtt prn 05/14: Patient seen and examined at bedside. Remains intubated and sedated planning for tracheostomy tomorrow. Continue current respiratory support; continue antibiotics, continue sedation. Follow recommendations of pulmonary, renal, and infectious disease 05/15: Patient seen and examined at bedside. Remains intubated and sedated planning for tracheostomy today. Continue current respiratory support; continue antibiotics, continue sedation. 05/16: Patient seen and examined at bedside. Underwent tracheostomy yesterday today tolerated well. When seen this morning patient is still notably sedated respiratory status is stable. measures. 05/17: Patient seen and examined at bedside. Attempting to wean sedation. Patient with some diarrhea. Per infectious disease will give erythromycin eye ointment for eye lesions. Nephro and pulm also following. 05/18: Patient seen and examined at bedside. Attempting to increase tube feeds, GI consulted for PEG evaluation. Otherwise no major clinical changes. Continue to wean sedation. Plan of care discussed with bedside nurse. 05/19: Patient seen and examined at bedside. Apparently had a fair bit of vomiting overnight. GI following for PEG evaluation. Otherwise patient remained stable. Plan of care discussed with bedside nurse. 05/20: Patient seen and examined at bedside. Again had multiple bouts of vomiting yesterday. GI continuing to follow for PEG evaluation although on hold right now due to persistent vomiting. Leukocytosis 05/21: Afebrile, no acute events overnight. Remains on vent, FiO2 40%, PEEP 5. S/P tracheostomy on 05/15/2021. KUB on 05/19/2021 consistent with ileus. Per GI, continue NG tube to suction and parenteral nutrition for now. Continue IV antibiotics, per ID. Continue hemodialysis 05/22: Afebrile. On vent with FiO2 40%, PEEP 5. Excessive NG output. Continue NG tube to suction for now; PEG on hold for now. Continue hemodialysis, per nephrology. Continue IV antibiotics, per ID. 05/23: Afebrile. Vent with FiO2 40%, PEEP 5. NG tube for 635 mL out overnight. Continue NG tube to suction. HD 05/24: No acute events overnight. Afebrile. NG tube output has decreased. Kidney function appears stable. Continue IV antibiotics, per ID. Patient has been accepted to [facility], pending insurance authorization. 05/25: Afebrile. On vent with FiO2 40%, PEEP 5. Hemoglobin 8.6 yesterday, hemoglobin 7.3 today. Reportedly had HD yesterday. Continue IV antibiotics, per ID; WBC possibly reactive to ileus. Has been accepted at [facility]; transfer pending, but will need PEG tube placement prior. 05/26: Afebrile. On vent with FiO2 40%, PEEP 5. Hemoglobin 7.3 yesterday, and hemoglobin 7.2 today; continue to trend. Leukocytosis slightly improved, WBC 12.9 today. Has been accepted at [facility]; transfer pending, but will need PEG tube placement prior. 05/27: Afebrile. On vent with FiO2 40%, PEEP 5. Hemoglobin remains stable at 7.2 today; continue to trend. WBC 13.4. Kidney function appears to be stabilized. LTAC transfer is pending PEG tube placement. Off meropenem; will continue to monitor. Kidney function appears to be stable. 05/28: No acute events overnight. Patient doing well on trach with settings of 4 0% FiO2 and PEEP of 8. Pending PEG placement after ileus is resolved will defer this to GI for timing of PEG placement.. Also pending tunneled catheter placement for dialysis. 05/29: No acute events or night. Patient tolerating trach collar humidified. Saturating at 99%. Pending PICC line placement and IJ central line removal. Per ID. Possibly in not needing HD. Making urine adequately with Lasix as needed. 05/30: No acute events overnight. Patient doing well on trach collar. Hemoglobin decreased down to 6.7 pending 1 unit PRBC transfusion. Restarted on linezolid and Flagyl and cefepime. Pending PICC placement and central line IJ removal. 05/31: No acute events overnight. Patient saturating 100% on trach collar. Hemoglobin improved after 1 unit PRBC transfusion to 8.4. Patient is currently undergoing dialysis and his labs have been stable. Patient's chart, labs, images were reviewed and discussed with RN 06/01: No acute events overnight. Patient saturating well on trach collar. Patient seen and examined bedside and on HD. Hemoglobin trended down from 8.4- 7.3. Afebrile in the last 24 hours. Patient's chart, labs, images were reviewed and discussed with RN 06/02: No acute events overnight. Patient saturating 100% on trach collar. Tmax 100.3. Yeast 1 of 4 bottles on blood cultures. Plan to remove central line and dialysis catheter. Family consideration for tunneled catheterization possibly hold. Micafungin was started per ID. 06/03: No acute events overnight. Left IJ placed by IR. Defer to ID for antibiotic management for cultures of the catheter tip and yeast. 06/04: No overnight events afebrile. Sedated on propofol and Precedex. On vent with tracheostomy PEEP 5 FiO2 40%. Being treated for fungemia and receiving TPN. Left IJ CVC functioning well. HD catheter right. 06/05: Afebrile. Still requiring minimal sedation on propofol and Precedex. Requiring vent support via trach PEEP five FiO2 40%. KUB with less gaseous distention. No BM but bowel sounds are audible. 06/06: Afebrile. On minimal sedation with propofol and Precedex and vent support via trach PEEP 5 FiO2 40%. Still in A. fib on telemetry. Catheter tip no g rowth to date sputum with Mariya. Repeat blood cultures no growth to date 06/07: Afebrile. On minimal sedation propofol and Precedex with for trach PEEP 5 FiO2 40%. He is to be in A. fib. Hb 6.9. Will transfuse with dialysis today. Did have stool smear overnight 06/08: Afebrile. On minimal sedation propofol Precedex tolerated pressure support yesterday back on AC PEEP 5 FiO2 40% use more alert trying to pull out his tracheostomy successfully disconnected himself from the vent. Not easily redirectable. Admits for safety. In A. fib. Labs pending 06/09: Vomited large amount of tube feeding overnight and NG attached to low suction. Remains in A. fib. Minimal sedation with propofol and Precedex. Tolerated pressure support back on AC FiO2 40% PEEP 5 getting dialysis currently. 06/11/2021: Patient seen and examined in the ICU. Mitts on for patient safety. Sedated with dexmedetomidine, propofol, and fentanyl. IV TPN hanging. NG tube running at 10 mL per hour. Currently on trach shield 10L. Discussed with RN. Chart reviewed. Vitals/I&O Vitals/I&O: Vital Signs Date Time Temp Pulse Resp B/P (MAP) Pulse Ox O2 Delivery O2 Flow Rate FiO2 06/14/21 07:34 93 Ventilator 06/14/21 06:00 106 35 123/98 (106) 06/14/21 04:00 99.3 99.3 I & O 06/13/21 06/13/21 06/14/21 15:00 23:00 07:00 Intake Total 100 ml 1064 ml 0 ml Output Total 610 ml 265 ml 1165 ml Balance -510 ml 799 ml -1165 ml Physical Exam Physical Exam: GENERAL: awake and comfortable on vent HEENT: Normocephalic, atraumatic, redness and erythema of both eyes improved, NG tube present NECK: right dialysis catheter present clean,Lt neck central line changed ( 05/11) Trach + HEART: S1, S2.no gallop LUNGS: Decreased breath sounds. ABDOMEN: Less distended, bowel sounds present GENITOURINARY: Nieves in place. EXTREMITIES: Edema present. DERMATOLOGIC: Warm, dry, no generalized rash. NEUROLOGIC: Opens eyes PICC line clean General: Other (DROWSY) Heart: Regular rate, Normal S1, Normal S2, No murmurs, Gallops Lungs: Clear Abdomen: Normal bowel sounds, Other (ND) Extremities: Other (EDEMA) Skin: No rashes, No breakdown, No significant lesion Labs Labs: Laboratory Tests Test 06/13/21 12:30 06/13/21 17:09 06/14/21 01:14 06/14/21 06:45 Glucose (Fingerstick) 147 mg/dL (70-99) 167 mg/dL (70-99) 219 mg/dL (70-99) White Blood Count 17.0 x10^3/uL (4.0-11.0) Red Blood Count 2.77 x10^6/uL (4.30-5.70) Hemoglobin 7.5 g/dL (13.0-17.5) Hematocrit 23.4 % (39.0-53.0) Mean Corpuscular Volume 85 fL (79-100) Mean Corpuscular Hemoglobin 27 pg (25-35) Mean Corpuscular Hemoglobin Concent 32 g/dL (31-37) Red Cell Distribution Width 17.1 % (11.5-14.5) Platelet Count 339 x10^3/uL (140-400) Neutrophils (%) (Auto) 55 % (31-73) Lymphocytes (%) (Auto) 26 % (24-48) Monocytes (%) (Auto) 12 % (0-9) Eosinophils (%) (Auto) 4 % (0-3) Basophils (%) (Auto) 3 % (0-3) Neutrophils # (Auto) 9.3 x10^3/uL (1.8-7.7) Lymphocytes # (Auto) 4.4 x10^3/uL (1.0-4.8) Monocytes # (Auto) 2.1 x10^3/uL (0.0-1.1) Eosinophils # (Auto) 0.6 x10^3/uL (0.0-0.7) Basophils # (Auto) 0.5 x10^3/uL (0.0-0.2) Sodium Level 140 mmol/L (136-145) Potassium Level 3.8 mmol/L (3.5-5.1) Chloride Level 103 mmol/L (98-107) Carbon Dioxide Level 28 mmol/L (21-32) Anion Gap 9 (6-14) Blood Urea Nitrogen 38 mg/dL (8-26) Creatinine 2.2 mg/dL (0.7-1.3) Estimated GFR (Cockcroft-Gault) 35.6 Glucose Level 193 mg/dL (70-99) Calcium Level 8.7 mg/dL (8.5-10.1) Phosphorus Level 2.5 mg/dL (2.6-4.7) Magnesium Level 2.0 mg/dL (1.8-2.4) Test 06/14/21 06:46 Glucose (Fingerstick) 193 mg/dL (70-99) Assessment and Plan Assessmemt and Plan Problems Medical Problems: (1) Elevated troponin Status: Acute (2) Person under investigation for COVID-19 Status: Acute (3) Pulmonary edema Status: Acute Respiratory failure requiring intubation COVID-19 Acute WI A. fib SIRS Hypertension with hypertensive urgency Hyperlipidemia CKD Diabetes fungemia History of bilateral subclavian stenosis History of marijuana use Severe protein calorie malnutrition Trach placed on May 15 GI consulted for PEG evaluation --> patient with a lot of vomiting yesterday thus current NG tube to low intermittent suction Anemia secondary to acute blood loss, possible multiple lab draws and related to advanced CKD Positive yeast on 1 out of 4 bottles on blood cultures Plan: 1) ICU monitoring 2) Continue trach shield (started on 06/10) 3) Continue IV sedation with dexmedetomidine, propofol, and fentanyl 4) Appreciate subspecialty input (nephrology pulmonary and infectious disease following) 5) Continue IV TPN 6) SCD for DVT prophylaxis 7) dialysis per nephrology today trend labs 8) antibiotics and antifungals per infectious disease CC time 3 minutes Per nephrology's recommendations please see the following and we agree; FUNGEMIA HYPONATREMIA-RESOLVED HYPOKALEMIA LOW PO4-CORRECTED LOW MAG-CORRECTED [id number] UO BUT NO CLEARANCE CKD - SUSPECT STAGE 3 ACUTE HYPOXIC RESP FAILURE COVID 19 PNEUMONIA MET ACIDOSIS-BETTER LEUCOCYTOSIS ANEMIA S/P TRACH ANASARCA ILEUS PLAN RESP SUPPORT HD AGAIN TODAY UF TOLERATED 4.0 LITERS AGAIN ALBUMIN PRIOR TO HD TO HELP UF AND BP WILL NEED TO CONTINUE DAILY HD DUE TO EDEMA ANTIBIOTICS ANTIFUNGALS CONT TPN Comment Review of Relevant I have reviewed the following items juanita (where applicable) has been applied. Medications: Current Medications Medications (Trade) Dose Ordered Sig/Jodie Route PRN Reason Start Time Stop Time Status Last Admin Dose Admin Sodium Chloride 80 meq/Potassium Chloride 10 meq/ Potassium Phosphate 10 mmol/ Magnesium Sulfate 8 meq/ Multivitamins 5 ml/Zinc/Copper/ Manganese/ Selenium 1 ml/ Total Parenteral Nutrition/Amino Acids/Dextrose/ Fat Emulsion Intravenous 1,440 ml @ 60 mls/hr TPN CONT IV 06/13/21 22:00 06/14/21 21:59 06/13/21 22:00 Albumin Human 100 ml @ 100 mls/hr 1X ONCE IV 06/13/21 12:45 06/13/21 13:44 DC 06/13/21 12:20 Justifications for Admission General Conditions Altered mental status?: Yes Justification of admission: Patient has tachycardia (> 100 beats per minute) or hypotension (SBP < 90 mm Hg) leading to inadequate systemic perfusion as indicated by severe/persistent altered mental status. Other Justification ILDA CASTLE,NIAL K III DO Jun 14, 2021 11:16
--- NOTE | 2021-06-14 11:42 | PDOC ---
Date of Service: DATE: 06/14/21 TIME: 11:39 Objective: Objective: D/w nurse - apparently lots of NG output overnight? D/w SW - accepted at [facility] w/ TPN and OG suction, awaiting insurance approval. Vital Signs: Vital Signs Date Time Temp Pulse Resp B/P (MAP) Pulse Ox O2 Delivery O2 Flow Rate FiO2 06/14/21 07:34 93 Ventilator 06/14/21 06:00 106 35 123/98 (106) 06/14/21 04:00 99.3 99.3 Labs: Laboratory Tests Test 06/13/21 12:30 06/13/21 17:09 06/14/21 01:14 06/14/21 06:45 Glucose (Fingerstick) 147 mg/dL 167 mg/dL 219 mg/dL White Blood Count 17.0 x10^3/uL Red Blood Count 2.77 x10^6/uL Hemoglobin 7.5 g/dL Hematocrit 23.4 % Mean Corpuscular Volume 85 fL Mean Corpuscular Hemoglobin 27 pg Mean Corpuscular Hemoglobin Concent 32 g/dL Red Cell Distribution Width 17.1 % Platelet Count 339 x10^3/uL Neutrophils (%) (Auto) 55 % Lymphocytes (%) (Auto) 26 % Monocytes (%) (Auto) 12 % Eosinophils (%) (Auto) 4 % Basophils (%) (Auto) 3 % Neutrophils # (Auto) 9.3 x10^3/uL Lymphocytes # (Auto) 4.4 x10^3/uL Monocytes # (Auto) 2.1 x10^3/uL Eosinophils # (Auto) 0.6 x10^3/uL Basophils # (Auto) 0.5 x10^3/uL Sodium Level 140 mmol/L Potassium Level 3.8 mmol/L Chloride Level 103 mmol/L Carbon Dioxide Level 28 mmol/L Anion Gap 9 Blood Urea Nitrogen 38 mg/dL Creatinine 2.2 mg/dL Estimated GFR (Cockcroft-Gault) 35.6 Glucose Level 193 mg/dL Calcium Level 8.7 mg/dL Phosphorus Level 2.5 mg/dL Magnesium Level 2.0 mg/dL Test 06/14/21 06:46 Glucose (Fingerstick) 193 mg/dL PE: GEN: chronically ill LUNGS: trach/vent HEART: tachycardic ABD: quiet, round/large, soft, NG clear-bilious NEURO/PSYCH: awake A/P: COVID-19 S/p tracheostomy Prolonged ileus -- Plans as above, continue same for now. Justicifation of Admission Dx: Justifications for Admission: Justification of Admission Dx: Yes Aspiration Pneumonia: Hemodynamic Instability TAIWO THEODORE Jun 14, 2021 11:41
--- NOTE | 2021-06-14 11:43 | NUR ---
SS following up with discharge planning. SS reviewed pt chart and discussed with pt RN. Pt is currently on the vent at 40%. COVID19 recovered. Pt on TPN, Propofol, Precedex, and IV Fluconazole. Pt accepted at [facility], ; fax [phone], pending insurance authorization. Per [facility], they submitted for insurance authorization this morning. SS will continue to follow for discharge planning.
[2021-06-14] MEDS ORDERED: IV NORMAL SALINE 1000ML BAG 1,000 ML IV PRN ×2 (13:30)
[2021-06-14] MEDS ORDERED: ALBUMIN HUMAN 25% 200 ML IV PRN (13:30)
[2021-06-14] MEDS ORDERED: DIALYSIS PATIENT. MC PRN ×2 (13:30)
--- NOTE | 2021-06-14 13:36 | NUR ---
Pharmacy TPN Dosing Note S: NILAM LAN is a 75 year old M Currently receiving Central Continuous TPN started 05/22/21 B:Pertinent PMH: ILEUS Height: 6 feet, 2 inches Weight: 141.877892 kg Current diet: NPO LABS: Sodium: 140 Potassium: 3.8 Chloride: 105 Calcium: 8.7 Corrected Calcium: 10.54 Magnesium: 2.0 CO2: 28 SCr: 2.2 Glucose: 193 Albumin: 1.7 AST: 31 ALT: 26 TPN FORMULA: TPN TYPE: Central Continuous AMINO ACIDS: 110 gm DEXTROSE: 295 gm LIPIDS: 40 gm SODIUM CHLORIDE: 80 mEq SODIUM ACETATE: - mEq SODIUM PHOSPHATE: - mmol POTASSIUM CHLORIDE: 20 mEq POTASSIUM ACETATE: - mEq POTASSIUM PHOSPHATE: 13.6 mmol MAGNESIUM: 8 mEq CALCIUM: 0 mEq INSULIN: - units MULTIPLE VITAMIN: 5 ml TRACE ELEMENTS: 1 ml(s) TPN PLAN: up kcl to 20 meq and kphos to 13.6 mm R: Continue TPN AT 60 ML/HR Will monitor electrolytes, glucose, and tolerance to TPN. [facility], 06/14/21 [id number]
[2021-06-14] MEDS: ATORVASTATIN CALCIUM 40 MG TABLET. PO SCH (20:48)
[2021-06-14] MEDS: MONTELUKAST SODIUM 10 MG TABLET. PO SCH (20:48)
[2021-06-14] MEDS ORDERED: [UNRECOGNIZED DRUG - OTHER] IV SCH (22:00)
[2021-06-14] MEDS ORDERED: TOTAL PARENTERAL NUTRITION IV SCH (22:00)
[2021-06-14] MEDS ORDERED: AMINO ACID IV SCH (22:00)
[2021-06-14] MEDS ORDERED: DEXTROSE 70% IV SCH (22:00)
[2021-06-15] VITALS (26 sets, daily range): BP systolic 84–189; BP diastolic 42–90
[2021-06-15] MEDS: INSULIN LISPRO 300 UNITS/3 ML VIAL. SQ SCH ×10 (00:13→23:51)
[2021-06-15] MEDS: DEXMEDETOMIDINE 400 MCG in IV NORMAL SALINE 100ML 96 ML IV PRN ×6 (00:18→21:15)
[2021-06-15] MEDS: PROPOFOL 100 ML IV PRN ×3 (03:27→21:14)
[2021-06-15] MEDS: ACETAMINOPHEN 650 MG SUPP.RECT. PR PRN (05:30)
[2021-06-15] MEDS: METOPROLOL IV PUSH 5 MG/5 ML VIAL. IVP SCH ×4 (06:00→23:35)
[2021-06-15 07:08] LABS: BASO # 0.3 x10^3/uL (0.0-0.2); BASO % 2 % (0-3); EOS # 0.8 x10^3/uL (0.0-0.7); EOS % 5 % (0-3); LYMPH # 2.5 x10^3/uL (1.0-4.8); LYMPH % 17 % (24-48); MEAN CORPUSCULAR HEMOGLOBIN 28 pg (25-35); MEAN CORPUSCULAR HGB CONC 32 g/dL (31-37); MEAN CORPUSCULAR VOLUME 85 fL (79-100); MONO # 1.8 x10^3/uL (0.0-1.1); MONO % 13 % (0-9); NEUT # 9.1 x10^3/uL (1.8-7.7); NEUT % 63 % (31-73); PLATELET COUNT 316 x10^3/uL (140-400); RED BLOOD COUNT 2.44 x10^6/uL (4.30-5.70); RED CELL DISTRIBUTION WIDTH 17.2 % (11.5-14.5); WHITE BLOOD COUNT 14.4 x10^3/uL (4.0-11.0)
[2021-06-15 07:30] LABS: HEMOGLOBIN 6.7 g/dL (13.0-17.5)
[2021-06-15 07:31] LABS: HEMATOCRIT 20.8 % (39.0-53.0)
[2021-06-15 08:25] LABS: CALCIUM 8.8 mg/dL (8.5-10.1); CREATININE 2.1 mg/dL (0.7-1.3); GFR 37.5; POTASSIUM 3.9 mmol/L (3.5-5.1)
--- NOTE | 2021-06-15 08:54 | PDOC ---
Infectious Disease Note Subjective Subjective Patient is awake on ventilator ROS ROS No nausea vomiting diarrhea Does have 102 fever Vital Sign Vital Signs Vital Signs Date Time Temp Pulse Resp B/P (MAP) Pulse Ox O2 Delivery O2 Flow Rate FiO2 06/15/21 08:00 98 10.0 06/15/21 07:19 Ventilator 06/15/21 06:00 70 20 108/46 (66) 06/15/21 05:00 102.1 102.1 Physical Exam PHYSICAL EXAM GENERAL: awake and comfortable on vent HEENT: Normocephalic, atraumatic, redness and erythema of both eyes improved, NG tube present NECK: right dialysis catheter present clean,Lt neck central line changed ( 05/11) Trach + HEART: S1, S2.no gallop LUNGS: Decreased breath sounds. ABDOMEN: Less distended, bowel sounds present GENITOURINARY: Nieves in place. EXTREMITIES: Edema present. DERMATOLOGIC: Warm, dry, no generalized rash. NEUROLOGIC: Opens eyes PICC line clean Labs Lab Laboratory Tests Test 06/14/21 14:25 06/14/21 18:26 06/15/21 00:11 06/15/21 06:30 Glucose (Fingerstick) 225 mg/dL (70-99) 118 mg/dL (70-99) 287 mg/dL (70-99) White Blood Count 14.4 x10^3/uL (4.0-11.0) Red Blood Count 2.44 x10^6/uL (4.30-5.70) Hemoglobin 6.7 g/dL (13.0-17.5) Hematocrit 20.8 % (39.0-53.0) Mean Corpuscular Volume 85 fL (79-100) Mean Corpuscular Hemoglobin 28 pg (25-35) Mean Corpuscular Hemoglobin Concent 32 g/dL (31-37) Red Cell Distribution Width 17.2 % (11.5-14.5) Platelet Count 316 x10^3/uL (140-400) Neutrophils (%) (Auto) 63 % (31-73) Lymphocytes (%) (Auto) 17 % (24-48) Monocytes (%) (Auto) 13 % (0-9) Eosinophils (%) (Auto) 5 % (0-3) Basophils (%) (Auto) 2 % (0-3) Neutrophils # (Auto) 9.1 x10^3/uL (1.8-7.7) Lymphocytes # (Auto) 2.5 x10^3/uL (1.0-4.8) Monocytes # (Auto) 1.8 x10^3/uL (0.0-1.1) Eosinophils # (Auto) 0.8 x10^3/uL (0.0-0.7) Basophils # (Auto) 0.3 x10^3/uL (0.0-0.2) Sodium Level 140 mmol/L (136-145) Potassium Level 3.9 mmol/L (3.5-5.1) Chloride Level 103 mmol/L (98-107) Carbon Dioxide Level 27 mmol/L (21-32) Anion Gap 10 (6-14) Blood Urea Nitrogen 36 mg/dL (8-26) Creatinine 2.1 mg/dL (0.7-1.3) Estimated GFR (Cockcroft-Gault) 37.5 Glucose Level 235 mg/dL (70-99) Calcium Level 8.8 mg/dL (8.5-10.1) Test 06/15/21 06:31 Glucose (Fingerstick) 228 mg/dL (70-99) Micro BLOOD CULTURE LC Final Final FINAL ID= [MANDI PARAPSILOSIS] NO FURTHER WORKUP MANDI PARAPSILOSIS Unless otherwise specified, Testing Performed by: [address] [address] For Inquires, the Physician may contact the Microbiology department at [phone] Objective Assessment Fungemia May 30, 2021, C parapsilosis, 06/02 neg RT IJ central line removed cath tip sent for cult 1. Febrile illness resolved 2. Leukocytosis, was on steroids,ileus could contribute,improving 3. COVID-19 pneumonia. 4. Acute hypoxic respiratory failure status post intubation.Now S/P Trach 05/15 Pleural effusion 5. Congestive heart failure, acute on chronic. 6. Acute kidney injury on chronic kidney disease on hemodialysis. 7. Diabetes mellitus 2. 8. Atrial fibrillation. 9. Anemia. 10. Protein-calorie malnutrition. 11. Hypertention 12.Hyponatremia 13. Ileus, Bowel obstruction Peg TF on hold, OG to LIS 14.on PPN 15.Mild to Moderate Pleural effusion 16.Lt eye conjunctivitis resolved Plan Plan of Care Monitor labs and cultures lines removed Repeat Bc remain negative from 06/02 Nieves changed 05/30 C. difficile PCR negative Remains critically ill Continue supportive care Prognosis poor Reculture blood Start cefepime Dapto and micafungin Change all the lines Discussed with nursing staff JAD RIVERO MD Jun 15, 2021 08:54
[2021-06-15 09:08] LABS: % BASOS 1 % (0-3); % EOS 5 % (0-5); % LYMPHS 15 % (24-48); % MONOS 8 % (0-10); % SEGS 71 % (35-66); ANISOCYTOSIS SLIGHT; NUCLEATED RBC 1; PLT ESTIMATE ADEQUATE (ADEQUATE)
[2021-06-15] MEDS: MICAFUNGIN 100 MG in IV DEXTROSE 5% 100ML 100 ML IV SCH (09:49)
[2021-06-15] MEDS: NYSTATIN TOPICAL POWDER 15GM BOTTLE. TP SCH ×2 (09:51→20:54)
[2021-06-15] MEDS: CEFEPIME HCL IV Push 1 GM VIAL. IVP SCH (09:51)
[2021-06-15] MEDS: ASPIRIN CHEWABLE 81 MG TABLET. PO SCH (09:54)
--- NOTE | 2021-06-15 09:55 | PDOC ---
PULMONARY PROGRESS NOTES DATE: 06/15/21 TIME: 09:49 Subjective remains on vent support on AC mode anemia on labs this am no other concerns from nursing overnight Vitals Vital Signs Date Time Temp Pulse Resp B/P (MAP) Pulse Ox O2 Delivery O2 Flow Rate FiO2 06/15/21 08:00 98 10.0 06/15/21 07:19 Ventilator 06/15/21 06:00 70 20 108/46 (66) 06/15/21 05:00 102.1 102.1 Comments Tracheostomy ros unable to obtain Lungs: Clear Cardiovascular: S1, S2 Abdomen: Soft, Other (Nontender) Extremities: Other (1+ edema) Skin: Warm Labs Laboratory Tests Test 06/13/21 12:30 06/13/21 17:09 06/14/21 01:14 06/14/21 06:45 Glucose (Fingerstick) 147 mg/dL (70-99) 167 mg/dL (70-99) 219 mg/dL (70-99) White Blood Count 17.0 x10^3/uL (4.0-11.0) Red Blood Count 2.77 x10^6/uL (4.30-5.70) Hemoglobin 7.5 g/dL (13.0-17.5) Hematocrit 23.4 % (39.0-53.0) Mean Corpuscular Volume 85 fL (79-100) Mean Corpuscular Hemoglobin 27 pg (25-35) Mean Corpuscular Hemoglobin Concent 32 g/dL (31-37) Red Cell Distribution Width 17.1 % (11.5-14.5) Platelet Count 339 x10^3/uL (140-400) Neutrophils (%) (Auto) 55 % (31-73) Lymphocytes (%) (Auto) 26 % (24-48) Monocytes (%) (Auto) 12 % (0-9) Eosinophils (%) (Auto) 4 % (0-3) Basophils (%) (Auto) 3 % (0-3) Neutrophils # (Auto) 9.3 x10^3/uL (1.8-7.7) Lymphocytes # (Auto) 4.4 x10^3/uL (1.0-4.8) Monocytes # (Auto) 2.1 x10^3/uL (0.0-1.1) Eosinophils # (Auto) 0.6 x10^3/uL (0.0-0.7) Basophils # (Auto) 0.5 x10^3/uL (0.0-0.2) Sodium Level 140 mmol/L (136-145) Potassium Level 3.8 mmol/L (3.5-5.1) Chloride Level 103 mmol/L (98-107) Carbon Dioxide Level 28 mmol/L (21-32) Anion Gap 9 (6-14) Blood Urea Nitrogen 38 mg/dL (8-26) Creatinine 2.2 mg/dL (0.7-1.3) Estimated GFR (Cockcroft-Gault) 35.6 Glucose Level 193 mg/dL (70-99) Calcium Level 8.7 mg/dL (8.5-10.1) Phosphorus Level 2.5 mg/dL (2.6-4.7) Magnesium Level 2.0 mg/dL (1.8-2.4) Test 06/14/21 06:46 06/14/21 14:25 06/14/21 18:26 06/15/21 00:11 Glucose (Fingerstick) 193 mg/dL (70-99) 225 mg/dL (70-99) 118 mg/dL (70-99) 287 mg/dL (70-99) Test 06/15/21 06:30 06/15/21 06:31 White Blood Count 14.4 x10^3/uL (4.0-11.0) Red Blood Count 2.44 x10^6/uL (4.30-5.70) Hemoglobin 6.7 g/dL (13.0-17.5) Hematocrit 20.8 % (39.0-53.0) Mean Corpuscular Volume 85 fL (79-100) Mean Corpuscular Hemoglobin 28 pg (25-35) Mean Corpuscular Hemoglobin Concent 32 g/dL (31-37) Red Cell Distribution Width 17.2 % (11.5-14.5) Platelet Count 316 x10^3/uL (140-400) Neutrophils (%) (Auto) 63 % (31-73) Lymphocytes (%) (Auto) 17 % (24-48) Monocytes (%) (Auto) 13 % (0-9) Eosinophils (%) (Auto) 5 % (0-3) Basophils (%) (Auto) 2 % (0-3) Neutrophils # (Auto) 9.1 x10^3/uL (1.8-7.7) Lymphocytes # (Auto) 2.5 x10^3/uL (1.0-4.8) Monocytes # (Auto) 1.8 x10^3/uL (0.0-1.1) Eosinophils # (Auto) 0.8 x10^3/uL (0.0-0.7) Basophils # (Auto) 0.3 x10^3/uL (0.0-0.2) Segmented Neutrophils % 71 % (35-66) Lymphocytes % 15 % (24-48) Monocytes % 8 % (0-10) Eosinophils % 5 % (0-5) Basophils % 1 % (0-3) Nucleated Red Blood Cells 1 Platelet Estimate Adequate (ADEQUATE) Anisocytosis Slight Sodium Level 140 mmol/L (136-145) Potassium Level 3.9 mmol/L (3.5-5.1) Chloride Level 103 mmol/L (98-107) Carbon Dioxide Level 27 mmol/L (21-32) Anion Gap 10 (6-14) Blood Urea Nitrogen 36 mg/dL (8-26) Creatinine 2.1 mg/dL (0.7-1.3) Estimated GFR (Cockcroft-Gault) 37.5 Glucose Level 235 mg/dL (70-99) Calcium Level 8.8 mg/dL (8.5-10.1) Glucose (Fingerstick) 228 mg/dL (70-99) Laboratory Tests Test 06/14/21 14:25 06/14/21 18:26 06/15/21 00:11 06/15/21 06:30 Glucose (Fingerstick) 225 mg/dL (70-99) 118 mg/dL (70-99) 287 mg/dL (70-99) White Blood Count 14.4 x10^3/uL (4.0-11.0) Red Blood Count 2.44 x10^6/uL (4.30-5.70) Hemoglobin 6.7 g/dL (13.0-17.5) Hematocrit 20.8 % (39.0-53.0) Mean Corpuscular Volume 85 fL (79-100) Mean Corpuscular Hemoglobin 28 pg (25-35) Mean Corpuscular Hemoglobin Concent 32 g/dL (31-37) Red Cell Distribution Width 17.2 % (11.5-14.5) Platelet Count 316 x10^3/uL (140-400) Neutrophils (%) (Auto) 63 % (31-73) Lymphocytes (%) (Auto) 17 % (24-48) Monocytes (%) (Auto) 13 % (0-9) Eosinophils (%) (Auto) 5 % (0-3) Basophils (%) (Auto) 2 % (0-3) Neutrophils # (Auto) 9.1 x10^3/uL (1.8-7.7) Lymphocytes # (Auto) 2.5 x10^3/uL (1.0-4.8) Monocytes # (Auto) 1.8 x10^3/uL (0.0-1.1) Eosinophils # (Auto) 0.8 x10^3/uL (0.0-0.7) Basophils # (Auto) 0.3 x10^3/uL (0.0-0.2) Segmented Neutrophils % 71 % (35-66) Lymphocytes % 15 % (24-48) Monocytes % 8 % (0-10) Eosinophils % 5 % (0-5) Basophils % 1 % (0-3) Nucleated Red Blood Cells 1 Platelet Estimate Adequate (ADEQUATE) Anisocytosis Slight Sodium Level 140 mmol/L (136-145) Potassium Level 3.9 mmol/L (3.5-5.1) Chloride Level 103 mmol/L (98-107) Carbon Dioxide Level 27 mmol/L (21-32) Anion Gap 10 (6-14) Blood Urea Nitrogen 36 mg/dL (8-26) Creatinine 2.1 mg/dL (0.7-1.3) Estimated GFR (Cockcroft-Gault) 37.5 Glucose Level 235 mg/dL (70-99) Calcium Level 8.8 mg/dL (8.5-10.1) Test 06/15/21 06:31 Glucose (Fingerstick) 228 mg/dL (70-99) Medications Active Scripts Medications Dose Route/Sig Max Daily Dose Days Date Category Glyburide 2.5 Mg Tablet 1 Tab PO DAILY 04/19/21 Rx Polyethylene Glycol 3350 17 Gm Powd.pack 17 Gm PO DAILY 14 04/19/21 Rx Dok (Docusate Sodium) 100 Mg Capsule 100 Mg PO PRN DAILY PRN 30 04/19/21 Rx Bisacodyl 5 Mg Tablet. 5 Mg PO PRN DAILY PRN 14 04/19/21 Rx Acetaminophen 325 Mg Tablet 650 Mg PO PRN Q4HRS PRN 14 04/19/21 Rx Aspirin Ec (Aspirin) 81 Mg Tablet. 81 Mg PO DAILYWBKFT 30 04/19/21 Rx Hydralazine Hcl 25 Mg Tablet 25 Mg PO QID 30 04/19/21 Rx Fenofibrate 54 Mg Tablet 1 Tab PO DAILY 04/17/21 Reported Potassium Chloride (Potassium Chloride) 20 Meq Tablet.er 20 Meq PO DAILY 04/17/21 Reported Coreg (Carvedilol) 12.5 Mg Tablet 37.5 Mg PO BIDWMEALS 04/17/21 Reported Rosuvastatin Calcium 40 Mg Tablet 40 Mg PO QHS 04/17/21 Reported Gabapentin (Gabapentin) 100 Mg Capsule 200 Mg PO BID 04/17/21 Reported Montelukast Sodium Tablet (Montelukast Sodium) 10 Mg Tablet 10 Mg PO HS 04/17/21 Reported Protonix (Pantoprazole Sodium) 20 Mg Tablet. 2 Tab PO DAILY 04/17/21 Reported Amlodipine Besylate 5 Mg Tablet 5 Mg PO DAILY 04/17/21 Reported Furosemide 40 Mg Tablet 1 Tab PO DAILY 04/17/21 Reported Proair Hfa Inhaler (Albuterol Sulfate) 8.5 Gm Hfa.aer.ad 2 Puff IH PRN Q4-6HRS PRN 04/16/21 Reported Advair 100-50 Diskus (Fluticasone/Salmeterol) 1 Each Disk.w.dev 1 Puff IH BID 04/16/21 Reported Comments Impression . IMPRESSION: 1. Acute hypoxic respiratory failure, multifactorial/COVID-19 viral pneumonia/ARDS, ongoing, intubated 04/25/2021, now status post tracheostomy 05/15/[address] chest with bilateral diffuse interstitial infiltrates without any significant pleural effusion 3. Leukocytosis, sepsis 4. Non-ST segment elevation [place] 5. History of tobacco use, suspect COPD, unknown FEV1 6. Chronic kidney disease.== HD as needed per renal 7. Metabolic acidosis multifactorial, improved 8. Abnormal chest x-ray, compatible with ARDS CHF 9. Hypoglycemia, continue to monitor 10. Hypotension multifactorial 11. Fever-- 12. Anemia- 13. Atrial fibrillation with rapid ventricular response, currently rate controlled 14. Ileus 15. Type 2 diabetes 16. A. fib 17. Fever secondary to fungemia Plan . Updated 06/15/21 Continue current vent support Follow ID recs -- ongoing fever/Fungemia Follow nephrology recs Follow GI recs -- anemia on labs today/ illeus DVT/GI PPX D/W RN and RT Planned to possibly DC to [facility] today Pt. is DNR Updated 06/14 Over the last 24 to 48 hours, patient not tolerating any weaning Continues to have a fever Being treated for fungemia Central line removed catheter tip sent for culture Follow nephrology input Hold off weaning Ileus persist Long-term and short-term prognosis is poor Discussed with RT and RN updated 06/13 Hemoglobin stable Follow GI input Hemodialysis per Dr. Ariza We will attempt pressure support Antibiotics per JONES RAVI MD Jun 15, 2021 09:55
[2021-06-15] MEDS: INSULIN GLARGINE SYRINGE. SQ SCH ×2 (09:57→20:54)
--- NOTE | 2021-06-15 09:58 | RAD ---
EXAM: XR CHEST 1V 06/15/2021 9:25 AM CLINICAL INDICATION: Central line dialysis catheter placement. COMPARISON: Chest radiograph 06/04/2021 TECHNIQUE: AP supine view of the chest FINDINGS: A tracheostomy tube and nasogastric tube are unchanged. There is a right IJ central venous catheter with tip at the superior cavoatrial junction. Left IJ central venous catheter with tip over the superior vena cava. There appears to be a vascular stent in one of the great vessels on the left . The cardiac silhouette is prominent. Central pulmonary vascularity is engorged. There is unchanged mo derate pulmonary edema and bilateral pleural effusions. No pneumothorax. IMPRESSION: 1. Unchanged position of lines and tubes. Appropriate position of right IJ catheter. 2. Unchanged moderate pulmonary edema and pleural effusions. Electronically signed by: Grecia Mcallister MD (06/15/2021 9:55 AM) [id number]
[2021-06-15] MEDS: PANTOPRAZOLE IV PUSH 40 MG VIAL. IVP SCH (10:07)
[2021-06-15] MEDS ORDERED: DIALYSIS PATIENT. MC PRN ×2 (10:15)
[2021-06-15] MEDS ORDERED: 0.9 % SODIUM CHLORIDE 10 ML DISP.SYRIN. IV PRN ×2 (10:15)
[2021-06-15] MEDS ORDERED: ALBUMIN HUMAN 25% 200 ML IV PRN (10:15)
[2021-06-15] MEDS ORDERED: IV NORMAL SALINE 1000ML BAG 1,000 ML IV PRN ×2 (10:15)
--- NOTE | 2021-06-15 10:19 | PDOC ---
Renal-Progress Notes Subjective Notes Notes NONE History of Present Illness Hx of present illness NO ACUTE CHANGES Vitals Vitals Vital Signs Date Time Temp Pulse Resp B/P (MAP) Pulse Ox O2 Delivery O2 Flow Rate FiO2 06/15/21 09:53 69 127/57 06/15/21 08:00 98 10.0 06/15/21 07:19 Ventilator 06/15/21 06:00 20 06/15/21 05:00 102.1 102.1 Weight Weight [ ] I.O. Intake and Output Intake and Output 06/15/21 07:00 Intake Total 2370.7 ml Output Total 695 ml Balance 1675.7 ml IV Total 2370.7 ml Tube Feeding 0 ml Output Urine Total 195 ml Gastric Drainage Total 500 ml Labs Labs Laboratory Tests Test 06/14/21 14:25 06/14/21 18:26 06/15/21 00:11 06/15/21 06:30 Glucose (Fingerstick) 225 mg/dL (70-99) 118 mg/dL (70-99) 287 mg/dL (70-99) White Blood Count 14.4 x10^3/uL (4.0-11.0) Red Blood Count 2.44 x10^6/uL (4.30-5.70) Hemoglobin 6.7 g/dL (13.0-17.5) Hematocrit 20.8 % (39.0-53.0) Mean Corpuscular Volume 85 fL (79-100) Mean Corpuscular Hemoglobin 28 pg (25-35) Mean Corpuscular Hemoglobin Concent 32 g/dL (31-37) Red Cell Distribution Width 17.2 % (11.5-14.5) Platelet Count 316 x10^3/uL (140-400) Neutrophils (%) (Auto) 63 % (31-73) Lymphocytes (%) (Auto) 17 % (24-48) Monocytes (%) (Auto) 13 % (0-9) Eosinophils (%) (Auto) 5 % (0-3) Basophils (%) (Auto) 2 % (0-3) Neutrophils # (Auto) 9.1 x10^3/uL (1.8-7.7) Lymphocytes # (Auto) 2.5 x10^3/uL (1.0-4.8) Monocytes # (Auto) 1.8 x10^3/uL (0.0-1.1) Eosinophils # (Auto) 0.8 x10^3/uL (0.0-0.7) Basophils # (Auto) 0.3 x10^3/uL (0.0-0.2) Segmented Neutrophils % 71 % (35-66) Lymphocytes % 15 % (24-48) Monocytes % 8 % (0-10) Eosinophils % 5 % (0-5) Basophils % 1 % (0-3) Nucleated Red Blood Cells 1 Platelet Estimate Adequate (ADEQUATE) Anisocytosis Slight Sodium Level 140 mmol/L (136-145) Potassium Level 3.9 mmol/L (3.5-5.1) Chloride Level 103 mmol/L (98-107) Carbon Dioxide Level 27 mmol/L (21-32) Anion Gap 10 (6-14) Blood Urea Nitrogen 36 mg/dL (8-26) Creatinine 2.1 mg/dL (0.7-1.3) Estimated GFR (Cockcroft-Gault) 37.5 Glucose Level 235 mg/dL (70-99) Calcium Level 8.8 mg/dL (8.5-10.1) Test 06/15/21 06:31 Glucose (Fingerstick) 228 mg/dL (70-99) Micro Micro Microbiology 06/02/21 Gram Stain - Final, Complete 06/02/21 Aerobic Culture - Final, Complete 06/02/21 Blood Culture - Final, Complete NO GROWTH AFTER 5 DAYS 05/30/21 Gram Stain Evaluation - Final, Complete 05/30/21 Respiratory Culture - Final, Complete Review of Systems Constitutional: yes: unresponsive, other Physical Exam General Appearance: no apparent distress, other (ON THE VENT) Skin: warm, dry, edema Respiratory: decreased breath sounds Heart: S1S2 Abdomen: soft, N/T, distension, other Genitourinary: bladder flat, mooney catheter Extremities: pulses present, edema Neurology: other (sedated) Musculoskeletal: Other Assessment Assessment IMP FUNGEMIA HYPONATREMIA-RESOLVED HYPOKALEMIA LOW PO4-CORRECTED LOW MAG-CORRECTED [id number] UO BUT NO CLEARANCE CKD - SUSPECT STAGE 3B ACUTE HYPOXIC RESP FAILURE COVID 19 PNEUMONIA MET ACIDOSIS-BETTER LEUCOCYTOSIS ANEMIA S/P TRACH ANASARCA ILEUS PLAN RESP SUPPORT HD AGAIN TODAY UF TOLERATED 4.0 LITERS PRBC ONE UNIT TODAY WITH HD AGAIN ALBUMIN PRIOR TO HD TO HELP UF AND BP WILL NEED TO CONTINUE DAILY HD DUE TO EDEMA ANTIBIOTICS ANTIFUNGALS CONT TPN POSSIBLE LTAC TRANSFER SOON WILL FOLLOW JEANINE NEWTON MD Jun 15, 2021 10:19
[2021-06-15 11:22] LABS: PHOSPHORUS 2.6 mg/dL (2.6-4.7)
--- NOTE | 2021-06-15 11:57 | PDOC ---
Date of Service: DATE: 06/15/21 TIME: 11:53 Objective: Objective: Accepted at [facility], awaiting insurance. 500cc out from [facility]. Vital Signs: Vital Signs Date Time Temp Pulse Resp B/P (MAP) Pulse Ox O2 Delivery O2 Flow Rate FiO2 06/15/21 11:22 99 Ventilator 06/15/21 10:00 64 20 112/50 (70) 06/15/21 08:00 10.0 06/15/21 08:00 99.3 99.3 Labs: Laboratory Tests Test 06/14/21 14:25 06/14/21 18:26 06/15/21 00:11 06/15/21 06:31 Glucose (Fingerstick) 225 mg/dL (70-99) 118 mg/dL (70-99) 287 mg/dL (70-99) 228 mg/dL (70-99) Imaging: CXR 06/15 IMPRESSION: 1. Unchanged position of lines and tubes. Appropriate position of right IJ catheter. 2. Unchanged moderate pulmonary edema and pleural effusions. PE: GEN: dialyzing LUNGS: trach/vent HEART: RRR ABD: stable distention, quiet, NG canister w/ thin brown-clear contents NEURO/PSYCH: eyes closed A/P: COVID-19 s/p trach Ileus - ongoing for some time - failed tube feed trials, no response to Relis tor, suppositories, etc. - requiring suction, not a candidate for PEG currently ACD/JENN - requiring transfusion, no obvious GI bleeding -- Awaiting DC. Continue TPN, suction. Justicifation of Admission Dx: Justifications for Admission: Justification of Admission Dx: Yes Aspiration Pneumonia: Hemodynamic Instability TAIWO THEODORE Jun 15, 2021 11:57
[2021-06-15] MEDS: DAPTOMYCIN IV SCH (11:59)
[2021-06-15] MEDS: NORMAL SALINE IV SCH (11:59)
--- NOTE | 2021-06-15 12:24 | PDOC ---
[employer] PROGRESS NOTE Date of Service DOS: DATE: 06/15/21 TIME: 12:24 Chief Complaint Chief Complaint Respiratory failure requiring intubation COVID-19 Acute GA A. fib SIRS Hypertension with hypertensive urgency Hyperlipidemia CKD Diabetes History of bilateral subclavian stenosis History of marijuana use Severe protein calorie malnutrition Trach placed on May 15 GI consulted for PEG evaluation --> patient with a lot of vomiting yesterday thus current NG tube to low intermittent suction Anemia secondary to acute blood loss, possible multiple lab draws and related to advanced CKD Positive yeast on 1 out of 4 bottles on blood cultures History of Present Illness History of Present Illness 06/15/2021 Patient seen and examined in the ICU He remains on the vent via tracheostomy AC/20/500/40 percent with 5 of PEEP Setting in the mid Has fentanyl and Precedex for sedation His hemoglobin is running low today at 6.7 I have ordered a unit of blood He is on IV TPN Discussed with RN Chart reviewed He remains critically ill 06/14/2021 patient seen and examined in the ICU chart reviewed discussed with RN he remains on the vent via tracheostomy vent settings as follows AC/20/500/40 percent with 5 of PEEP has mitts on for patient safety has SCDs on Nieves to bedside drainage sedated with fentanyl propofol and Precedex he remains critically ill 06/13/2021 Patient seen and examined in the ICU Chart reviewed Discussed with RN Vent settings as follows Spontaneous respirations with 40% FiO2 10 of pressure support Sedated with fentanyl propofol and Dex Has Nieves to bedside drainage Mitts for patient safety 06/12/2021 Patient seen and examined in the ICU He is currently on dialysis (dialysis nurse states we took 2 L off today and we plan to do daily dialysis for a few days per Dr. Ariza) Has trach shield in place Chart reviewed Discussed with RN He remains critically ill 06/10: Tolerating 30 cc every 3 hours tube feed with minimal residuals overnight. Remains in A. fib. Abdomen appears a bit more distended, soft. Minimally sedated propofol Precedex on [employer] FiO2 40% PEEP 5. CC time 31 min spent in reviewing chart, labs, and images. Discussed with RN and SW. Mr Cunha is a 75 yo male w/ PMHx CAD, HTN, Hyperlipidemia, subclavian steel syndrome, subclavian stenosis s/p left subclavian sent placement complicated by retroperitoneal hematoma s/p evacuation in 08/2015), asthma, BART, CKD, DM2 who presented from home with home health care noted that he was short of breath and valverde with O2 saturations less than 89% as low as 84% not improved with nasal cannulated oxygen placed on CPAP and brought to ED for further care. He was just discharged from the hospital a week ago on April 19, 2021 for abdominal pain and was going for further cardiac testing with outpatient stress testing scheduled on May 28, 2021. Had echocardiogram April 17, 2021 with normal-appearing EF with moderate concentric LVH no significant valvular abnormalities. WBC 20, Hb 10.7, platelets 268, NA 140, K3.8, BUN 21, CR 2.9, glucose 162, albumin 3, troponin I 1.372, NT proBNP 33,318. EKG appears sinus tachycardia rate of 105 bpm with multiple PACs small ST depressions in lead II and V5. TWI in V6. Chest radiograph with diffuse interstitial and alveolar opacities and ET tube 5.8 cm above the leilani. Due to worsening respiratory status ED physician elected to intubate patient. Seen postintubation. Blood pressure little low after propofol bolus, but improved. Significant white frothy sputum per ET tube. Admitted to ICU for further care 04/25: On vent FiO2 50, PEEP 5. Febrile, T-max 103.3. Patient was initiated on cooling blankets. Procalcitonin 0.13. 04/26: COVID-19 positive. Febrile overnight that was managed with cooling blankets. On vent with FiO2 50%, PEEP 5. Per cardiology, elevated troponins likely secondary to demand ischemia; continue heparin drip per cardiology. Continue treatment with remdesivir, steroids, and antibiotics. 04/27: Afebrile. Vent with FiO2 50%, PEEP 5. Troponin 2.8 yesterday; probable type II, demand ischemia. New onset A. fib. Cont heparin gtt and prn digoxin, per cardiology. Contnue treatment with remdesivir, steroids, and prophylactic antibiotics. BG 323 this morning; will add basal insulin. 04/28: Afebrile. FiO2 50%, PEEP 5. Nontunneled HD catheter placed yesterday due to worsening kidney function; eGFR 16 (CKD4). Chest x-ray showed unchanged interstitial opacities. Continue empiric antibiotics, steroids, and remdesivir. Continue heparin infusion, for new dx A. fib. 04/29: Afebrile, remains on vent at FiO2 45%, PEEP 5. WBC 20.4. Hemodialysis per nephrology. We will continue treatment with empiric antibiotics, remdesivir, and steroids. Continue heparin infusion and supportive care. 04/30: Patient seen and examined in the [place] [address] ICU. He remains on the vent. AC/20/500/40 5% with 5 PEEP. Currently on dialysis. Has OG feeds running. Has a Nieves to bedside drainage. Sedated with propofol and fentanyl. He remains critically ill 05/01: Patient seen and examined in the [place] [address] ICU. He is still intubated. AC/20/500/40 percent with 5 of PEEP. In A. fib. Sedated with propofol fentanyl and Versed. Has a heparin drip 05/02: Patient seen and examined in the [place] [address] ICU. He is sedated with propofol fentanyl and Versed. AC/20/500/40 percent with 5 of PEEP. He remains critically ill 05/03: Patient seen and examined in the [place] [address] ICU. He is still intubated. AC/20/500/70 percent with 5 of PEEP. Sedated with fentanyl Versed and propofol. Remains critically ill 05/04: Patient seen and examined in the [place] [address] ICU. Still intubated. Sedated w ith propofol and fentanyl. AC/20/500/70 percent with 5 of PEEP. On dialysis currently 05/05: Patient seen and examined in the [facility] [facility] [address] ICU. He remains on the vent. AC/20/500/40 percent with 5 of PEEP. He remains critically ill 05/06: Patient seen and examined in the [facility] [facility] [address] ICU. He remains mechanically ventilated. AC/20/500/40 05/07: Patient seen and examined in the [facility] [address] ICU. He remains mechanically ventilated. ILDA on CKD - ATN 2/2 sepsis/ Hypotension,UOP good,on IV Lasix ; requiring dialysis, . AC/20/500/40 percent with 5 of PEEP. Sedated with propofol Dex and fentanyl 05/08: Currently on 40%, 5 of PEEP. now on cardene gtt. Patient seen and examined in the [facility] [address] ICU. 05/09: VENT [id number]%, 5 of PEEP. Mild pulmonary edema with new small right pleural effusion and basilar opacities. Change central line and send cath tip for cultures. 05/10: VENT [id number]%, 5 of PEEP. Mild pulmonary edema with new small right pleural effusion and basilar opacities. Patient seen and examined in the [place] [place] [id number] ICU 05/11: Continue iv cefepime , add zyvox, sputum culture 05/12: Continue iv cefepime , add zyvox, sputum culture. VENT [id number]%, 5 of PEEP. now on cardene gtt prn 05/13: Did not tolerate sedation vacation 05/11/2021, profoundly hypertensive. ABG/CXR--changes as needed. Continue iv cefepime , add zyvox, sputum culture. VENT [id number]%, 5 of PEEP. Mild pulmonary edema with new small right pleural effusion and basilar opacities. now on cardene gtt prn 05/14: Patient seen and examined at bedside. Remains intubated and sedated pl anning for tracheostomy tomorrow. Continue current respiratory support; continue antibiotics, continue sedation. Follow recommendations of pulmonary, renal, and infectious disease 05/15: Patient seen and examined at bedside. Remains intubated and sedated pl anning for tracheostomy today. Continue current respiratory support; continue antibiotics, continue sedation. 05/16: Patient seen and examined at bedside. Underwent tracheostomy yesterday today tolerated well. When seen this morning patient is still notably sedated respiratory status is stable. measures. 05/17: Patient seen and examined at bedside. Attempting to wean sedation. Luis tient with some diarrhea. Per infectious disease will give erythromycin eye ointment for eye lesions. Nephro and pulm also following. 05/18: Patient seen and examined at bedside. Attempting to increase tube feeds, GI consulted for PEG evaluation. Otherwise no major clinical changes. Continue to wean sedation. Plan of care discussed with bedside nurse. 05/19: Patient seen and examined at bedside. Apparently had a fair bit of vomiting overnight. GI following for PEG evaluation. Otherwise patient remain ed stable. Plan of care discussed with bedside nurse. 05/20: Patient seen and examined at bedside. Again had multiple bouts of vomiting yesterday. GI continuing to follow for PEG evaluation although on hold right now due to persistent vomiting. Leukocytosis 05/21: Afebrile, no acute events overnight. Remains on vent, FiO2 40%, PEEP 5. S/P tracheostomy on 05/15/2021. KUB on 05/19/2021 consistent with ileus. Per GI, continue NG tube to suction and parenteral nutrition for now. Continue IV antibiotics, per ID. Continue hemodialysis 05/22: Afebrile. On vent with FiO2 40%, PEEP 5. Excessive NG output. Continue NG tube to suction for now; PEG on hold for now. Continue hemodialysis, per nephrology. Continue IV antibiotics, per ID. 05/23: Afebrile. Vent with FiO2 40%, PEEP 5. NG tube for 635 mL out overnight. Continue NG tube to suction. HD 05/24: No acute events overnight. Afebrile. NG tube output has decreased. Kidney function appears stable. Continue IV antibiotics, per ID. Patient has been accepted to [facility], pending insurance authorization. 05/25: Afebrile. On vent with FiO2 40%, PEEP 5. Hemoglobin 8.6 yesterday, hemoglobin 7.3 today. Reportedly had HD yesterday. Continue IV antibiotics, per ID; WBC possibly reactive to ileus. Has been accepted at [facility]; transfer pending, but will need PEG tube placement prior. 05/26: Afebrile. On vent with FiO2 40%, PEEP 5. Hemoglobin 7.3 yesterday, and hemoglobin 7.2 today; continue to trend. Leukocytosis slightly improved, WBC 12.9 today. Has been accepted at [facility]; transfer pending, but will need PEG tube placement prior. 05/27: Afebrile. On vent with FiO2 40%, PEEP 5. Hemoglobin remains stable at 7.2 today; continue to trend. WBC 13.4. Kidney function appears to be stabilized. LTAC transfer is pending PEG tube placement. Off meropenem; will continue to monitor. Kidney function appears to be stable. 05/28: No acute events overnight. Patient doing well on trach with settings of 40% FiO2 and PEEP of 8. Pending PEG placement after ileus is resolved will defer this to GI for timing of PEG placement.. Also pending tunneled catheter placement for dialysis. 05/29: No acute events or night. Patient tolerating trach collar humidified. Saturating at 99%. Pending PICC line placement and IJ central line removal. Per ID. Possibly in not needing HD. Making urine adequately with Lasix as needed. 05/30: No acute events overnight. Patient doing well on trach collar. Hemoglobin decreased down to 6.7 pending 1 unit PRBC transfusion. Restarted on linezolid and Flagyl and cefepime. Pending PICC placement and central line IJ removal. 05/31: No acute events overnight. Patient saturating 100% on trach collar. Hemoglobin improved after 1 unit PRBC transfusion to 8.4. Patient is currently undergoing dialysis and his labs have been stable. Patient's chart, labs, images were reviewed and discussed with RN 06/01: No acute events overnight. Patient saturating well on trach collar. Patient seen and examined bedside and on HD. Hemoglobin trended down from 8.4- 7.3. Afebrile in the last 24 hours. Patient's chart, labs, images were reviewed and discussed with RN 06/02: No acute events overnight. Patient saturating 100% on trach collar. Tmax 100.3. Yeast 1 of 4 bottles on blood cultures. Plan to remove central line and dialysis catheter. Family consideration for tunneled catheterization possibly hold. Micafungin was started per ID. 06/03: No acute events overnight. Left IJ placed by IR. Defer to ID for antibiotic management for cultures of the catheter tip and yeast. 06/04: No overnight events afebrile. Sedated on propofol and Precedex. On vent with tracheostomy PEEP 5 FiO2 40%. Being treated for fungemia and receiving TPN. Left IJ CVC functioning well. HD catheter right. 06/05: Afebrile. Still requiring minimal sedation on propofol and Precedex. Requiring vent support via trach PEEP five FiO2 40%. KUB with less gaseous distention. No BM but bowel sounds are audible. 06/06: Afebrile. On minimal sedation with propofol and Precedex and vent support via trach PEEP 5 FiO2 40%. Still in A. fib on telemetry. Catheter tip no growth to date sputum with Mariya. Repeat blood cultures no growth to date 06/07: Afebrile. On minimal sedation propofol and Precedex with for trach PEEP 5 FiO2 40%. He is to be in A. fib. Hb 6.9. Will transfuse with dialysis today. Did have stool smear overnight 06/08: Afebrile. On minimal sedation propofol Precedex tolerated pressure support yesterday back on AC PEEP 5 FiO2 40% use more alert trying to pull out his tracheostomy successfully disconnected himself from the vent. Not easily redirectable. Admits for safety. In A. fib. Labs pending 06/09: Vomited large amount of tube feeding overnight and NG attached to low suction. Remains in A. fib. Minimal sedation with propofol and Precedex. Tolerated pressure support back on AC FiO2 40% PEEP 5 getting dialysis currently. 06/11/2021: Patient seen and examined in the ICU. Mitts on for patient safety. Sedated with dexmedetomidine, propofol, and fentanyl. IV TPN hanging. NG tube r unning at 10 mL per hour. Currently on trach shield 10L. Discussed with RN. Chart reviewed. Vitals/I&O Vitals/I&O: Vital Signs Date Time Temp Pulse Resp B/P (MAP) Pulse Ox O2 Delivery O2 Flow Rate FiO2 06/15/21 12:11 98.2 68 20 115/56 98.2 06/15/21 11:22 99 Ventilator 06/15/21 08:00 10.0 I & O 06/14/21 06/14/21 06/15/21 15:00 23:00 07:00 Intake Total 100 ml 1453.7 ml 817 ml Output Total 80 ml 80 ml 535 ml Balance 20 ml 1373.7 ml 282 ml Physical Exam General: Other (DROWSY) Heart: Regular rate, Normal S1, Normal S2, No murmurs, Gallops Lungs: Clear Abdomen: Normal bowel sounds, Other (ND) Extremities: Other (EDEMA) Skin: No rashes, No breakdown, No significant lesion Labs Labs: Laboratory Tests Test 06/14/21 14:25 06/14/21 18:26 06/15/21 00:11 06/15/21 06:30 Glucose (Fingerstick) 225 mg/dL (70-99) 118 mg/dL (70-99) 287 mg/dL (70-99) White Blood Count 14.4 x10^3/uL (4.0-11.0) Red Blood Count 2.44 x10^6/uL (4.30-5.70) Hemoglobin 6.7 g/dL (13.0-17.5) Hematocrit 20.8 % (39.0-53.0) Mean Corpuscular Volume 85 fL (79-100) Mean Corpuscular Hemoglobin 28 pg (25-35) Mean Corpuscular Hemoglobin Concent 32 g/dL (31-37) Red Cell Distribution Width 17.2 % (11.5-14.5) Platelet Count 316 x10^3/uL (140-400) Neutrophils (%) (Auto) 63 % (31-73) Lymphocytes (%) (Auto) 17 % (24-48) Monocytes (%) (Auto) 13 % (0-9) Eosinophils (%) (Auto) 5 % (0-3) Basophils (%) (Auto) 2 % (0-3) Neutrophils # (Auto) 9.1 x10^3/uL (1.8-7.7) Lymphocytes # (Auto) 2.5 x10^3/uL (1.0-4.8) Monocytes # (Auto) 1.8 x10^3/uL (0.0-1.1) Eosinophils # (Auto) 0.8 x10^3/uL (0.0-0.7) Basophils # (Auto) 0.3 x10^3/uL (0.0-0.2) Segmented Neutrophils % 71 % (35-66) Lymphocytes % 15 % (24-48) Monocytes % 8 % (0-10) Eosinophils % 5 % (0-5) Basophils % 1 % (0-3) Nucleated Red Blood Cells 1 Platelet Estimate Adequate (ADEQUATE) Anisocytosis Slight Sodium Level 140 mmol/L (136-145) Potassium Level 3.9 mmol/L (3.5-5.1) Chloride Level 103 mmol/L (98-107) Carbon Dioxide Level 27 mmol/L (21-32) Anion Gap 10 (6-14) Blood Urea Nitrogen 36 mg/dL (8-26) Creatinine 2.1 mg/dL (0.7-1.3) Estimated GFR (Cockcroft-Gault) 37.5 Glucose Level 235 mg/dL (70-99) Calcium Level 8.8 mg/dL (8.5-10.1) Phosphorus Level 2.6 mg/dL (2.6-4.7) Magnesium Level 2.0 mg/dL (1.8-2.4) Test 06/15/21 06:31 Glucose (Fingerstick) 228 mg/dL (70-99) Assessment and Plan Assessmemt and Plan Problems Medical Problems: (1) Elevated troponin Status: Acute (2) Person under investigation for COVID-19 Status: Acute (3) Pulmonary edema Status: Acute Respiratory failure requiring intubation COVID-19 Acute GA A. fib SIRS Hypertension with hypertensive urgency Hyperlipidemia CKD Diabetes fungemia Persistent ileus History of bilateral subclavian stenosis History of marijuana use Severe protein calorie malnutrition Trach placed on May 15 Anemia secondary to acute blood loss, possible multiple lab draws and related to advanced CKD Positive yeast on 1 out of 4 bottles on blood cultures Plan: 1) ICU monitoring 2) Continue trach shield (started on 06/10) 3) Continue IV sedation with dexmedetomidine, propofol, and fentanyl 4) Appreciate subspecialty input (nephrology pulmonary and infectious disease and GI are following) 5) Continue IV TPN 6) SCD for DVT prophylaxis 7) dialysis per nephrology today trend labs 8) antibiotics and antifungals per infectious disease 9) transfuse 1 unit of packed red blood cells today 10)Continue NG to low intermittent suction Prognosis guarded CC time 33 minutes Comment Review of Relevant I have reviewed the following items juanita (where applicable) has been applied. Medications: Current Medications Medications (Trade) Dose Ordered Sig/Jodie Route PRN Reason Start Time Stop Time Status Last Admin Dose Admin Sodium Chloride 80 meq/Potassium Chloride 20 meq/ Potassium Phosphate 13.6 mmol/Magnesium Sulfate 8 meq/ Multivitamins 5 ml/Zinc/Copper/ Manganese/ Selenium 1 ml/ Total Parenteral Nutrition/Amino Acids/Dextrose/ Fat Emulsion Intravenous 1,440 ml @ 60 mls/hr TPN CONT IV 06/14/21 22:00 06/15/21 21:59 06/14/21 22:22 Cefepime HCl (Maxipime) 1 gm DAILY IVP 06/15/21 09:30 06/15/21 09:51 Daptomycin 620 mg/ Sodium Chloride 50 ml @ 100 mls/hr Q48H IV 06/15/21 11:00 06/15/21 11:59 Micafungin Sodium 100 mg/Dextrose 100 ml @ 100 mls/hr Q24H IV 06/15/21 10:00 06/15/21 09:49 Albumin Human 200 ml @ 200 mls/hr 1X PRN PRN IV Hypotension 06/15/21 10:15 06/15/21 16:14 06/15/21 10:30 Justifications for Admission General Conditions Altered mental status?: Yes Justification of admission: Patient has tachycardia (> 100 beats per minute) or hypotension (SBP < 90 mm Hg) leading to inadequate systemic perfusion as indicated by severe/persistent altered mental status. Other Justification ILDA ELENI PEARL K III DO Jun 15, 2021 12:24
[2021-06-15] MEDS: TPN PER PHARMACY MC PRN (12:43)
--- NOTE | 2021-06-15 13:58 | RAD ---
06/15/2021 Procedure: 1. Placement of a left internal jugular temporary hemodialysis catheter at the bedside with ultrasoun d guidance 2. For placement of a right internal jugular temporary hemodialysis catheter over a guidewire Sterility: All elements of maximal sterile barrier technique including the use of a cap, mask, steril e gown, sterile gloves, large sterile sheet, appropriate hand hygiene, and 2% chlorhexidine for cutan eous antisepsis (or acceptable alternative antiseptic per current guidelines) were followed for this procedure. Consent: The procedure was explained in its entirety to the patient or the patients designated repres entative by a member of the treatment team, including a discussion of the risks, benefits and commonl y accepted alternatives to the procedure, as well as the expected consequences of no therapy whatsoev er. Discussion of the risks included, but was not limited to, those that are most frequent and thos e that are rare but possibly severe or life-threatening, as well as the possibility of unforeseen com plications. Technique and Findings: Following informed consent, the patient was prepped and draped in the usual s terile fashion. Ultrasound interrogation of the left neck revealed patency and compressibility of th e left internal jugular vein. A 21-gauge micropuncture was then used to gain access to this vein und er ultrasound guidance. A hard copy ultrasound image was recorded. A guidewire was advanced centrall y over which, following dilatation, a triple-lumen central venous catheter was placed. The new yeimy ter was found to flush and aspirate normally. The catheter was secured in place. Sterile dressings we re applied. No immediate complications were identified. Next, the right neck including the pre-existing temporary dialysis catheter was prepped and draped us ing identical sterile barrier technique. 1% lidocaine was administered for local anesthesia. The pre- existing temporary dialysis catheter was removed over a guidewire and replaced with a new 20 cm Schon temporary dialysis catheter. The catheter was found to flush and aspirate normally. The catheter was secured in place. Sterile dressings were applied. IMPRESSION: 1. Placement of a new left internal jugular triple-lumen central venous catheter with ultrasound guid ance 2. Replacement of a right internal jugular tunneled hemodialysis catheter over a guidewire Electronically signed by: Adam Doe MD (06/15/2021 1:56 PM) [id number]
--- NOTE | 2021-06-15 15:45 | NUR ---
SS following up with discharge planning. SS reviewed pt chart and discussed with pt RN. Pt is currently on the vent at 40%. COVID19 recovered. Pt on TPN, Propofol, and Precedex. Pt on IV Micafungin, IV Daptomycin, and IV Cefepime. Trach in place. Pt accepted at [facility], ; fax [phone], pending insurance authorization. SS phoned and faxed clinical updates to [facility] today. P2P completed with physician and [employer] denying until PEG can be placed. SS discussed with physician. Consult for surgery placed for assessment. Appeal process started for insurance. Pt's RN notified. SS will continue to follow for discharge planning.
[2021-06-15] MEDS: ATORVASTATIN CALCIUM 40 MG TABLET. PO SCH (20:52)
[2021-06-15] MEDS: MONTELUKAST SODIUM 10 MG TABLET. PO SCH (20:52)
[2021-06-15] MEDS ORDERED: TOTAL PARENTERAL NUTRITION IV SCH (22:00)
[2021-06-15] MEDS ORDERED: [UNRECOGNIZED DRUG - OTHER] IV SCH (22:00)
[2021-06-15] MEDS ORDERED: DEXTROSE 70% IV SCH (22:00)
[2021-06-15] MEDS ORDERED: AMINO ACID IV SCH (22:00)
[2021-06-16] VITALS (22 sets, daily range): BP systolic 90–171; BP diastolic 56–102
[2021-06-16] MEDS: DEXMEDETOMIDINE 400 MCG in IV NORMAL SALINE 100ML 96 ML IV PRN ×4 (03:38→22:41)
[2021-06-16] MEDS: METOPROLOL IV PUSH 5 MG/5 ML VIAL. IVP SCH ×4 (05:40→23:54)
[2021-06-16] MEDS: INSULIN LISPRO 300 UNITS/3 ML VIAL. SQ SCH ×6 (05:45→18:00)
[2021-06-16 06:19] LABS: CALCIUM 8.2 mg/dL (8.5-10.1); CREATININE 2.4 mg/dL (0.7-1.3); GFR 32.2; POTASSIUM 3.7 mmol/L (3.5-5.1)
[2021-06-16 07:12] LABS: BASO # 0.2 x10^3/uL (0.0-0.2); BASO % 1 % (0-3); EOS # 1.7 x10^3/uL (0.0-0.7); EOS % 11 % (0-3); HEMATOCRIT 22.7 % (39.0-53.0); HEMOGLOBIN 7.5 g/dL (13.0-17.5); LYMPH # 2.7 x10^3/uL (1.0-4.8); LYMPH % 19 % (24-48); MEAN CORPUSCULAR HEMOGLOBIN 28 pg (25-35); MEAN CORPUSCULAR HGB CONC 33 g/dL (31-37); MEAN CORPUSCULAR VOLUME 86 fL (79-100); MONO # 1.9 x10^3/uL (0.0-1.1); MONO % 13 % (0-9); NEUT # 8.2 x10^3/uL (1.8-7.7); NEUT % 56 % (31-73); PLATELET COUNT 309 x10^3/uL (140-400); RED BLOOD COUNT 2.66 x10^6/uL (4.30-5.70); RED CELL DISTRIBUTION WIDTH 17.2 % (11.5-14.5); WHITE BLOOD COUNT 14.6 x10^3/uL (4.0-11.0)
[2021-06-16] MEDS: ASPIRIN CHEWABLE 81 MG TABLET. PO SCH (08:00)
[2021-06-16] MEDS: PANTOPRAZOLE IV PUSH 40 MG VIAL. IVP SCH (08:15)
[2021-06-16] MEDS: CEFEPIME HCL IV Push 1 GM VIAL. IVP SCH (08:16)
[2021-06-16] MEDS: MICAFUNGIN 100 MG in IV DEXTROSE 5% 100ML 100 ML IV SCH (08:16)
[2021-06-16] MEDS: TPN PER PHARMACY MC PRN (08:16)
[2021-06-16] MEDS: BISACODYL 10 MG SUPP.RECT. PR PRN (08:17)
[2021-06-16] MEDS: PROPOFOL 100 ML IV PRN ×2 (08:17→17:12)
[2021-06-16] MEDS: ACETAMINOPHEN 650 MG SUPP.RECT. PR PRN (08:17)
--- NOTE | 2021-06-16 08:17 | NUR ---
Pharmacy TPN Dosing Note S: NILAM LAN is a 75 year old M Currently receiving Central Continuous TPN started 05/22/21 B:Pertinent PMH: ILEUS Height: 6 feet, 2 inches Weight: 139.0 kg Current diet: NPO LABS: Sodium: 138 Potassium: 3.7 Chloride: 103 Calcium: 8.2 Corrected Calcium: 10.04 Magnesium: 2.0 CO2: 29 SCr: 2.4 Glucose: 129-197 Albumin: 1.7 AST: 31 ALT: 26 TPN FORMULA: TPN TYPE: Central Continuous AMINO ACIDS: 110 gm DEXTROSE: 295 gm LIPIDS: 40 gm SODIUM CHLORIDE: 80 mEq POTASSIUM CHLORIDE: 20 mEq POTASSIUM PHOSPHATE: 13.6 mmol MAGNESIUM: 8 mEq MULTIPLE VITAMIN: 5 ml TRACE ELEMENTS: 1 ml(s) TPN PLAN: Continue same Chem and triglyceride labs ordered for am R: Continue TPN Will monitor electrolytes, glucose, and tolerance to TPN. Jaqueline Watson RPH, 06/16/21 [id number]
[2021-06-16] MEDS: INSULIN GLARGINE SYRINGE. SQ SCH ×2 (08:56→20:48)
[2021-06-16] MEDS: NYSTATIN TOPICAL POWDER 15GM BOTTLE. TP SCH ×2 (08:56→20:44)
--- NOTE | 2021-06-16 09:40 | PDOC ---
PULMONARY PROGRESS NOTES DATE: 06/16/21 TIME: 09:36 Subjective remains on vent support on AC mode anemia on labs this am no other concerns from nursing overnight Vitals Vital Signs Date Time Temp Pulse Resp B/P (MAP) Pulse Ox O2 Delivery O2 Flow Rate FiO2 06/16/21 08:11 99 Ventilator 06/16/21 06:00 64 20 06/16/21 04:00 100.7 100.7 06/15/21 16:59 10.0 Comments Tracheostomy ros unable to obtain Lungs: Clear Cardiovascular: S1, S2 Abdomen: Soft, Other (Nontender) Extremities: Other (1+ edema) Skin: Warm Labs Laboratory Tests Test 06/14/21 14:25 06/14/21 18:26 06/15/21 00:11 06/15/21 06:30 Glucose (Fingerstick) 225 mg/dL (70-99) 118 mg/dL (70-99) 287 mg/dL (70-99) White Blood Count 14.4 x10^3/uL (4.0-11.0) Red Blood Count 2.44 x10^6/uL (4.30-5.70) Hemoglobin 6.7 g/dL (13.0-17.5) Hematocrit 20.8 % (39.0-53.0) Mean Corpuscular Volume 85 fL (79-100) Mean Corpuscular Hemoglobin 28 pg (25-35) Mean Corpuscular Hemoglobin Concent 32 g/dL (31-37) Red Cell Distribution Width 17.2 % (11.5-14.5) Platelet Count 316 x10^3/uL (140-400) Neutrophils (%) (Auto) 63 % (31-73) Lymphocytes (%) (Auto) 17 % (24-48) Monocytes (%) (Auto) 13 % (0-9) Eosinophils (%) (Auto) 5 % (0-3) Basophils (%) (Auto) 2 % (0-3) Neutrophils # (Auto) 9.1 x10^3/uL (1.8-7.7) Lymphocytes # (Auto) 2.5 x10^3/uL (1.0-4.8) Monocytes # (Auto) 1.8 x10^3/uL (0.0-1.1) Eosinophils # (Auto) 0.8 x10^3/uL (0.0-0.7) Basophils # (Auto) 0.3 x10^3/uL (0.0-0.2) Segmented Neutrophils % 71 % (35-66) Lymphocytes % 15 % (24-48) Monocytes % 8 % (0-10) Eosinophils % 5 % (0-5) Basophils % 1 % (0-3) Nucleated Red Blood Cells 1 Platelet Estimate Adequate (ADEQUATE) Anisocytosis Slight Sodium Level 140 mmol/L (136-145) Potassium Level 3.9 mmol/L (3.5-5.1) Chloride Level 103 mmol/L (98-107) Carbon Dioxide Level 27 mmol/L (21-32) Anion Gap 10 (6-14) Blood Urea Nitrogen 36 mg/dL (8-26) Creatinine 2.1 mg/dL (0.7-1.3) Estimated GFR (Cockcroft-Gault) 37.5 Glucose Level 235 mg/dL (70-99) Calcium Level 8.8 mg/dL (8.5-10.1) Phosphorus Level 2.6 mg/dL (2.6-4.7) Magnesium Level 2.0 mg/dL (1.8-2.4) Test 06/15/21 06:31 06/15/21 14:27 06/15/21 18:13 06/15/21 20:57 Glucose (Fingerstick) 228 mg/dL (70-99) 183 mg/dL (70-99) 187 mg/dL (70-99) 129 mg/dL (70-99) Test 06/15/21 23:47 06/16/21 05:37 06/16/21 05:45 Glucose (Fingerstick) 137 mg/dL (70-99) 187 mg/dL (70-99) White Blood Count 14.6 x10^3/uL (4.0-11.0) Red Blood Count 2.66 x10^6/uL (4.30-5.70) Hemoglobin 7.5 g/dL (13.0-17.5) Hematocrit 22.7 % (39.0-53.0) Mean Corpuscular Volume 86 fL (79-100) Mean Corpuscular Hemoglobin 28 pg (25-35) Mean Corpuscular Hemoglobin Concent 33 g/dL (31-37) Red Cell Distribution Width 17.2 % (11.5-14.5) Platelet Count 309 x10^3/uL (140-400) Neutrophils (%) (Auto) 56 % (31-73) Lymphocytes (%) (Auto) 19 % (24-48) Monocytes (%) (Auto) 13 % (0-9) Eosinophils (%) (Auto) 11 % (0-3) Basophils (%) (Auto) 1 % (0-3) Neutrophils # (Auto) 8.2 x10^3/uL (1.8-7.7) Lymphocytes # (Auto) 2.7 x10^3/uL (1.0-4.8) Monocytes # (Auto) 1.9 x10^3/uL (0.0-1.1) Eosinophils # (Auto) 1.7 x10^3/uL (0.0-0.7) Basophils # (Auto) 0.2 x10^3/uL (0.0-0.2) Sodium Level 138 mmol/L (136-145) Potassium Level 3.7 mmol/L (3.5-5.1) Chloride Level 103 mmol/L (98-107) Carbon Dioxide Level 29 mmol/L (21-32) Anion Gap 6 (6-14) Blood Urea Nitrogen 33 mg/dL (8-26) Creatinine 2.4 mg/dL (0.7-1.3) Estimated GFR (Cockcroft-Gault) 32.2 Glucose Level 197 mg/dL (70-99) Calcium Level 8.2 mg/dL (8.5-10.1) Laboratory Tests Test 06/15/21 14:27 06/15/21 18:13 06/15/21 20:57 06/15/21 23:47 Glucose (Fingerstick) 183 mg/dL (70-99) 187 mg/dL (70-99) 129 mg/dL (70-99) 137 mg/dL (70-99) Test 06/16/21 05:37 06/16/21 05:45 Glucose (Fingerstick) 187 mg/dL (70-99) White Blood Count 14.6 x10^3/uL (4.0-11.0) Red Blood Count 2.66 x10^6/uL (4.30-5.70) Hemoglobin 7.5 g/dL (13.0-17.5) Hematocrit 22.7 % (39.0-53.0) Mean Corpuscular Volume 86 fL (79-100) Mean Corpuscular Hemoglobin 28 pg (25-35) Mean Corpuscular Hemoglobin Concent 33 g/dL (31-37) Red Cell Distribution Width 17.2 % (11.5-14.5) Platelet Count 309 x10^3/uL (140-400) Neutrophils (%) (Auto) 56 % (31-73) Lymphocytes (%) (Auto) 19 % (24-48) Monocytes (%) (Auto) 13 % (0-9) Eosinophils (%) (Auto) 11 % (0-3) Basophils (%) (Auto) 1 % (0-3) Neutrophils # (Auto) 8.2 x10^3/uL (1.8-7.7) Lymphocytes # (Auto) 2.7 x10^3/uL (1.0-4.8) Monocytes # (Auto) 1.9 x10^3/uL (0.0-1.1) Eosinophils # (Auto) 1.7 x10^3/uL (0.0-0.7) Basophils # (Auto) 0.2 x10^3/uL (0.0-0.2) Sodium Level 138 mmol/L (136-145) Potassium Level 3.7 mmol/L (3.5-5.1) Chloride Level 103 mmol/L (98-107) Carbon Dioxide Level 29 mmol/L (21-32) Anion Gap 6 (6-14) Blood Urea Nitrogen 33 mg/dL (8-26) Creatinine 2.4 mg/dL (0.7-1.3) Estimated GFR (Cockcroft-Gault) 32.2 Glucose Level 197 mg/dL (70-99) Calcium Level 8.2 mg/dL (8.5-10.1) Medications Active Scripts Medications Dose Route/Sig Max Daily Dose Days Date Category Glyburide 2.5 Mg Tablet 1 Tab PO DAILY 04/19/21 Rx Polyethylene Glycol 3350 17 Gm Powd.pack 17 Gm PO DAILY 04/19/21 Rx Dok (Docusate Sodium) 100 Mg Capsule 100 Mg PO PRN DAILY PRN 04/19/21 Rx Bisacodyl 5 Mg Tablet.dr 5 Mg PO PRN DAILY PRN 14 04/19/21 Rx Acetaminophen 325 Mg Tablet 650 Mg PO PRN Q4HRS PRN 14 04/19/21 Rx Aspirin Ec (Aspirin) 81 Mg Tablet.dr 81 Mg PO DAILYWBKFT 30 04/19/21 Rx Hydralazine Hcl 25 Mg Tablet 25 Mg PO QID 30 04/19/21 Rx Fenofibrate 54 Mg Tablet 1 Tab PO DAILY 04/17/21 Reported Potassium Chloride (Potassium Chloride) 20 Meq Tablet.er 20 Meq PO DAILY 04/17/21 Reported Coreg (Carvedilol) 12.5 Mg Tablet 37.5 Mg PO BIDWMEALS 04/17/21 Reported Rosuvastatin Calcium 40 Mg Tablet 40 Mg PO QHS 04/17/21 Reported Gabapentin (Gabapentin) 100 Mg Capsule 200 Mg PO BID 04/17/21 Reported Montelukast Sodium Tablet (Montelukast Sodium) 10 Mg Tablet 10 Mg PO HS 04/17/21 Reported Protonix (Pantoprazole Sodium) 20 Mg Tablet.dr 2 Tab PO DAILY 04/17/21 Reported Amlodipine Besylate 5 Mg Tablet 5 Mg PO DAILY 04/17/21 Reported Furosemide 40 Mg Tablet 1 Tab PO DAILY 04/17/21 Reported Proair Hfa Inhaler (Albuterol Sulfate) 8.5 Gm Hfa.aer.ad 2 Puff IH PRN Q4-6HRS PRN 21 04/16/21 Reported Advair 100-50 Diskus (Fluticasone/Salmeterol) 1 Each Disk.w.dev 1 Puff IH BID 04/16/21 Reported Comments Impression . IMPRESSION: 1. Acute hypoxic respiratory failure, multifactorial/COVID-19 viral pneumonia/ARDS, ongoing, intubated 04/25/2021, now status post tracheostomy 05/15/[address] chest with bilateral diffuse interstitial infiltrates without any significant pleural effusion 3. Leukocytosis, sepsis 4. Non-ST segment elevation PR 5. History of tobacco use, suspect COPD, unknown FEV1 6. Chronic kidney disease.== HD as needed per renal 7. Metabolic acidosis multifactorial, improved 8. Abnormal chest x-ray, compatible with ARDS CHF 9. Hypoglycemia, continue to monitor 10. Hypotension multifactorial 11. Fever-- 12. Anemia- 13. Atrial fibrillation with rapid ventricular response, currently rate controlled 14. Ileus 15. Type 2 diabetes 16. A. fib 17. Fever secondary to fungemia Plan . Updated 06/16/21 Continue current vent support Follow ID recs -- ongoing fever/Fungemia Follow nephrology recs Follow GI recs -- anemia on labs today/ illeus DVT/GI PPX D/W RN and RT [facility] has denied patient Patient has been very difficult to wean due to multifactorial etiologies including arrhythmias, increased respiratory rate, poor control of blood pressure during trials. We will reach out to the family to discuss goals of care. Pt. is DNR Updated 06/15/21 Continue current vent support Follow ID recs -- ongoing fever/Fungemia Follow nephrology recs Follow GI recs -- anemia on labs today/ illeus DVT/GI PPX D/W RN and RT Planned to possibly DC to [facility] today Pt. is DNR Updated 06/14 Over the last 24 to 48 hours, patient not tolerating any weaning Continues to have a fever Being treated for fungemia Central line removed catheter tip sent for culture Follow nephrology input Hold off weaning Ileus persist Long-term and short-term prognosis is poor Discussed with RT and RN updated 06/13 Hemoglobin stable Follow GI input Hemodialysis per Dr. Ariza We will attempt pressure support Antibiotics per JONES RAVI MD Jun 16, 2021 09:40
--- NOTE | 2021-06-16 10:49 | PDOC ---
[employer] PROGRESS NOTE Date of Service DOS: DATE: 06/16/21 TIME: 10:45 Chief Complaint Chief Complaint Respiratory failure requiring intubation COVID-19 Acute HI A. fib SIRS Hypertension with hypertensive urgency Hyperlipidemia CKD Diabetes History of bilateral subclavian stenosis History of marijuana use Severe protein calorie malnutrition Trach placed on May 15 GI consulted for PEG evaluation --> patient with a lot of vomiting yesterday thus current NG tube to low intermittent suction Anemia secondary to acute blood loss, possible multiple lab draws and related to advanced CKD Positive yeast on 1 out of 4 bottles on blood cultures History of Present Illness History of Present Illness 06/16/2021 Patient seen and examined in the ICU Discussed with RT Discussed with RN Chart reviewed Patient remains mechanically ventilated via tracheostomy AC/20/300/40 percent with 5 of PEEP Satting 98% Sedated with fentanyl Has TPN hanging Has IV microfungi and hanging He remains very critically ill 06/15/2021 Patient seen and examined in the ICU He remains on the vent via tracheostomy AC/20/500/40 percent with 5 of PEEP Setting in the mid Has fentanyl and Precedex for sedation His hemoglobin is running low today at 6.7 I have ordered a unit of blood He is on IV TPN Discussed with RN Chart reviewed He remains critically ill 06/14/2021 patient seen and examined in the ICU chart reviewed discussed with RN he remains on the vent via tracheostomy vent settings as follows AC/20/500/40 percent with 5 of PEEP has mitts on for patient safety has SCDs on Nieves to bedside drainage sedated with fentanyl propofol and Precedex he remains critically ill 06/13/2021 Patient seen and examined in the ICU Chart reviewed Discussed with RN Vent settings as follows Spontaneous respirations with 40% FiO2 10 of pressure support Sedated with fentanyl propofol and Dex Has Nieves to bedside drainage Mitts for patient safety 06/12/2021 Patient seen and examined in the ICU He is currently on dialysis (dialysis nurse states we took 2 L off today and we plan to do daily dialysis for a few days per Dr. Ariza) Has trach shield in place Chart reviewed Discussed with RN He remains critically ill 06/10: Tolerating 30 cc every 3 hours tube feed with minimal residuals overnight. Remains in A. fib. Abdomen appears a bit more distended, soft. Minimally sedated propofol Precedex on [employer] FiO2 40% PEEP 5. CC time 31 min spent in reviewing chart, labs, and images. Discussed with RN and SW. Mr Cunha is a 75 yo male w/ PMHx CAD, HTN, Hyperlipidemia, subclavian steel syndrome, subclavian stenosis s/p left subclavian sent placement complicated by retroperitoneal hematoma s/p evacuation in 08/2015), asthma, BART, CKD, DM2 who presented from home with home health care noted that he was short of breath and valverde with O2 saturations less than 89% as low as 84% not improved with nasal cannulated oxygen placed on CPAP and brought to ED for further care. He was just discharged from the hospital a week ago on April 19, 2021 for abdominal pain and was going for further cardiac testing with outpatient stress testing scheduled on May 28, 2021. Had echocardiogram April 17, 2021 with normal-appearing EF with moderate concentric LVH no significant valvular abnormalities. WBC 20, Hb 10.7, platelets 268, NA 140, K3.8, BUN 21, CR 2.9, glucose 162, albumin 3, troponin I 1.372, NT proBNP 33,318. EKG appears sinus tachycardia rate of 105 bpm with multiple PACs small ST depressions in lead II and V5. TWI in V6. Chest radiograph with diffuse interstitial and alveolar opacities and ET tube 5.8 cm above the leilani. Due to worsening respiratory status ED physician elected to intubate patient. Seen postintubation. Blood pressure little low after propofol bolus, but improved. Significant white frothy sputum per ET tube. Admitted to ICU for further care 04/25: On vent FiO2 50, PEEP 5. Febrile, T-max 103.3. Patient was initiated on cooling blankets. Procalcitonin 0.13. 04/26: COVID-19 positive. Febrile overnight that was managed with cooling blankets. On vent with FiO2 50%, PEEP 5. Per cardiology, elevated troponins likely secondary to demand ischemia; continue heparin drip per cardiology. Continue treatment with remdesivir, steroids, and antibiotics. 04/27: Afebrile. Vent with FiO2 50%, PEEP 5. Troponin 2.8 yesterday; probable type II, demand ischemia. New onset A. fib. Cont heparin gtt and prn digoxin, per cardiology. Contnue treatment with remdesivir, steroids, and prophylactic antibiotics. BG 323 this morning; will add basal insulin. 04/28: Afebrile. FiO2 50%, PEEP 5. Nontunneled HD catheter placed yesterday due to worsening kidney function; eGFR 16 (CKD4). Chest x-ray showed unchanged interstitial opacities. Continue empiric antibiotics, steroids, and remdesivir. Continue heparin infusion, for new dx A. fib. 04/29: Afebrile, remains on vent at FiO2 45%, PEEP 5. WBC 20.4. Hemodialysis per nephrology. We will continue treatment with empiric antibiotics, remdesivir, and steroids. Continue heparin infusion and supportive care. 04/30: Patient seen and examined in the [facility]- ICU. He remains on the vent. AC/20/500/40 5% with 5 PEEP. Currently on dialysis. Has OG feeds running. Has a Nieves to bedside drainage. Sedated with propofol and fentanyl. He remains critically ill 05/01: Patient seen and examined in the [facility]- ICU. He is still intubated. AC/20/500/40 percent with 5 of PEEP. In A. fib. Sedated with propofol fentanyl and Versed. Has a heparin drip 05/02: Patient seen and examined in the [facility]- ICU. He is sedated with propofol fentanyl and Versed. AC/20/500/40 percent with 5 of PEEP. He remains critically ill 05/03: Patient seen and examined in the [facility]- ICU. He is still intubated. AC/20/500/70 percent with 5 of PEEP. Sedated with fentanyl Versed and propofol. Remains critically ill 05/04: Patient seen and examined in the [facility]- ICU. Still intubated. Sedated with propofol and fentanyl. AC/20/500/70 percent with 5 of PEEP. On dialysis sybil montgomery 05/05: Patient seen and examined in the [place] [id number] ICU. He remains on the vent. AC/20/500/40 percent with 5 of PEEP. He remains critically ill 05/06: Patient seen and examined in the [facility]- ICU. He remains mechanically ventilated. AC/20/500/40 05/07: Patient seen and examined in the [place] [id number] ICU. He remains mechanically ventilated. ILDA on CKD - ATN 2/2 sepsis/ Hypotension,UOP good,on IV Lasix ; requiring dialysis, . AC/20/500/40 percent with 5 of PEEP. Sedated with propofol Dex and fentanyl 05/08: Currently on 40%, 5 of PEEP. now on cardene gtt. Patient seen and examined in the [place] [id number] ICU. 05/09: VENT [id number]%, 5 of PEEP. Mild pulmonary edema with new small right pleural effusion and basilar opacities. Change central line and send cath tip for cultures. 05/10: VENT cjssicb73%, 5 of PEEP. Mild pulmonary edema with new small right pleural effusion and basilar opacities. Patient seen and examined in the [place] [id number] ICU 05/11: Continue iv cefepime , add zyvox, sputum culture 05/12: Continue iv cefepime , add zyvox, sputum culture. VENT [id number]%, 5 of PEEP. now on cardene gtt prn 05/13: Did not tolerate sedation vacation 05/11/2021, profoundly hypertensive. ABG/CXR--changes as needed. Continue iv cefepime , add zyvox, sputum culture. VENT bntuspf15%, 5 of PEEP. Mild pulmonary edema with new small right pleural effusion and basilar opacities. now on cardene gtt prn 05/14: Patient seen and examined at bedside. Remains intubated and sedated planning for tracheostomy tomorrow. Continue current respiratory support; continue antibiotics, continue sedation. Follow recommendations of pulmonary, renal, and infectious disease 05/15: Patient seen and examined at bedside. Remains intubated and sedated planning for tracheostomy today. Continue current respiratory support; continue antibiotics, continue sedation. 05/16: Patient seen and examined at bedside. Underwent tracheostomy yesterday today tolerated well. When seen this morning patient is still notably sedated respiratory status is stable. measures. 05/17: Patient seen and examined at bedside. Attempting to wean sedation. Patient with some diarrhea. Per infectious disease will give erythromycin eye ointment for eye lesions. Nephro and pulm also following. 05/18: Patient seen and examined at bedside. Attempting to increase tube feeds, GI consulted for PEG evaluation. Otherwise no major clinical changes. Continue to wean sedation. Plan of care discussed with bedside nurse. 05/19: Patient seen and examined at bedside. Apparently had a fair bit of vomiting overnight. GI following for PEG evaluation. Otherwise patient remained stable. Plan of care discussed with bedside nurse. 05/20: Patient seen and examined at bedside. Again had multiple bouts of vomiting yesterday. GI continuing to follow for PEG evaluation although on hold right now due to persistent vomiting. Leukocytosis 05/21: Afebrile, no acute events overnight. Remains on vent, FiO2 40%, PEEP 5. S/P tracheostomy on 05/15/2021. KUB on 05/19/2021 consistent with ileus. Per GI, continue NG tube to suction and parenteral nutrition for now. Continue IV antibiotics, per ID. Continue hemodialysis 05/22: Afebrile. On vent with FiO2 40%, PEEP 5. Excessive NG output. Continue NG tube to suction for now; PEG on hold for now. Continue hemodialysis, per nephrology. Continue IV antibiotics, per ID. 05/23: Afebrile. Vent with FiO2 40%, PEEP 5. NG tube for 635 mL out overnight. Continue NG tube to suction. HD 05/24: No acute events overnight. Afebrile. NG tube output has decreased. Kidney function appears stable. Continue IV antibiotics, per ID. Patient has been accepted to [facility], pending insurance authorization. 05/25: Afebrile. On vent with FiO2 40%, PEEP 5. Hemoglobin 8.6 yesterday, hemoglobin 7.3 today. Reportedly had HD yesterday. Continue IV antibiotics, per ID; WBC possibly reactive to ileus. Has been accepted at [facility]; transfer pending, but will need PEG tube placement prior. 05/26: Afebrile. On vent with FiO2 40%, PEEP 5. Hemoglobin 7.3 yesterday, and hemoglobin 7.2 today; continue to trend. Leukocytosis slightly improved, WBC 12.9 today. Has been accepted at [facility]; transfer pending, but will need PEG tube placement prior. 05/27: Afebrile. On vent with FiO2 40%, PEEP 5. Hemoglobin remains stable at 7.2 today; continue to trend. WBC 13.4. Kidney function appears to be stabilized. LTAC transfer is pending PEG tube placement. Off meropenem; will continue to monitor. Kidney function appears to be stable. 05/28: No acute events overnight. Patient doing well on trach with settings of 40% FiO2 and PEEP of 8. Pending PEG placement after ileus is resolved will defer this to GI for timing of PEG placement.. Also pending tunneled catheter placement for dialysis. 05/29: No acute events or night. Patient tolerating trach collar humidified. Saturating at 99%. Pending PICC line placement and IJ central line removal. Per ID. Possibly in not needing HD. Making urine adequately with Lasix as needed. 05/30: No acute events overnight. Patient doing well on trach collar. Hemoglobin decreased down to 6.7 pending 1 unit PRBC transfusion. Restarted on linezolid and Flagyl and cefepime. Pending PICC placement and central line IJ removal. 05/31: No acute events overnight. Patient saturating 100% on trach collar. Hemoglobin improved after 1 unit PRBC transfusion to 8.4. Patient is currently undergoing dialysis and his labs have been stable. Patient's chart, labs, images were reviewed and discussed with RN 06/01: No acute events overnight. Patient saturating well on trach collar. Patient seen and examined bedside and on HD. Hemoglobin trended down from 8.4- 7.3. Afebrile in the last 24 hours. Patient's chart, labs, images were reviewed and discussed with RN 06/02: No acute events overnight. Patient saturating 100% on trach collar. Tmax 100.3. Yeast 1 of 4 bottles on blood cultures. Plan to remove central line and dialysis catheter. Family consideration for tunneled catheterization possibly hold. Micafungin was started per ID. 06/03: No acute events overnight. Left IJ placed by IR. Defer to ID for antibiotic management for cultures of the catheter tip and yeast. 06/04: No overnight events afebrile. Sedated on propofol and Precedex. On vent with tracheostomy PEEP 5 FiO2 40%. Being treated for fungemia and receiving TPN. Left IJ CVC functioning well. HD catheter right. 06/05: Afebrile. Still requiring minimal sedation on propofol and Precedex. Requiring vent support via trach PEEP five FiO2 40%. KUB with less gaseous distention. No BM but bowel sounds are audible. 06/06: Afebrile. On minimal sedation with propofol and Precedex and vent support via trach PEEP 5 FiO2 40%. Still in A. fib on telemetry. Catheter tip no growth to date sputum with Mariya. Repeat blood cultures no growth to date 06/07: Afebrile. On minimal sedation propofol and Precedex with for trach PEEP 5 FiO2 40%. He is to be in A. fib. Hb 6.9. Will transfuse with dialysis today. Did have stool smear overnight 06/08: Afebrile. On minimal sedation propofol Precedex tolerated pressure support yesterday back on AC PEEP 5 FiO2 40% use more alert trying to pull out his tracheostomy successfully disconnected himself from the vent. Not easily redirectable. Admits for safety. In A. fib. Labs pending 06/09: Vomited large amount of tube feeding overnight and NG attached to low suction. Remains in A. fib. Minimal sedation with propofol and Precedex. Tolerated pressure support back on AC FiO2 40% PEEP 5 getting dialysis currently. 06/11/2021: Patient seen and examined in the ICU. Mitts on for patient safety. Sedated with dexmedetomidine, propofol, and fentanyl. IV TPN hanging. NG tube running at 10 mL per hour. Currently on trach shield 10L. Discussed with RN. Steffany rt reviewed. Vitals/I&O Vitals/I&O: Vital Signs Date Time Temp Pulse Resp B/P (MAP) Pulse Ox O2 Delivery O2 Flow Rate FiO2 06/16/21 10:09 99 Ventilator 06/16/21 08:11 06/16/21 06:00 64 20 06/16/21 04:00 100.7 100.7 06/15/21 16:59 10.0 I & O 06/15/21 06/15/21 06/16/21 15:00 23:00 07:00 Intake Total 151 ml 932 ml 1194 ml Output Total 25 ml 65 ml 135 ml Balance 126 ml 867 ml 1059 ml Physical Exam General: Other (DROWSY) Heart: Regular rate, Normal S1, Normal S2, No murmurs, Gallops Lungs: Clear Abdomen: Normal bowel sounds, Other (ND) Extremities: Other (EDEMA) Skin: No rashes, No breakdown, No significant lesion Labs Labs: Laboratory Tests Test 06/15/21 14:27 06/15/21 18:13 06/15/21 20:57 06/15/21 23:47 Glucose (Fingerstick) 183 mg/dL (70-99) 187 mg/dL (70-99) 129 mg/dL (70-99) 137 mg/dL (70-99) Test 06/16/21 05:37 06/16/21 05:45 Glucose (Fingerstick) 187 mg/dL (70-99) White Blood Count 14.6 x10^3/uL (4.0-11.0) Red Blood Count 2.66 x10^6/uL (4.30-5.70) Hemoglobin 7.5 g/dL (13.0-17.5) Hematocrit 22.7 % (39.0-53.0) Mean Corpuscular Volume 86 fL (79-100) Mean Corpuscular Hemoglobin 28 pg (25-35) Mean Corpuscular Hemoglobin Concent 33 g/dL (31-37) Red Cell Distribution Width 17.2 % (11.5-14.5) Platelet Count 309 x10^3/uL (140-400) Neutrophils (%) (Auto) 56 % (31-73) Lymphocytes (%) (Auto) 19 % (24-48) Monocytes (%) (Auto) 13 % (0-9) Eosinophils (%) (Auto) 11 % (0-3) Basophils (%) (Auto) 1 % (0-3) Neutrophils # (Auto) 8.2 x10^3/uL (1.8-7.7) Lymphocytes # (Auto) 2.7 x10^3/uL (1.0-4.8) Monocytes # (Auto) 1.9 x10^3/uL (0.0-1.1) Eosinophils # (Auto) 1.7 x10^3/uL (0.0-0.7) Basophils # (Auto) 0.2 x10^3/uL (0.0-0.2) Sodium Level 138 mmol/L (136-145) Potassium Level 3.7 mmol/L (3.5-5.1) Chloride Level 103 mmol/L (98-107) Carbon Dioxide Level 29 mmol/L (21-32) Anion Gap 6 (6-14) Blood Urea Nitrogen 33 mg/dL (8-26) Creatinine 2.4 mg/dL (0.7-1.3) Estimated GFR (Cockcroft-Gault) 32.2 Glucose Level 197 mg/dL (70-99) Calcium Level 8.2 mg/dL (8.5-10.1) Assessment and Plan Assessmemt and Plan Problems Medical Problems: (1) Elevated troponin Status: Acute (2) Person under investigation for COVID-19 Status: Acute (3) Pulmonary edema Status: Acute Respiratory failure requiring intubation COVID-19 Acute HI A. fib SIRS Hypertension with hypertensive urgency Hyperlipidemia CKD Diabetes fungemia Persistent ileus History of bilateral subclavian stenosis History of marijuana use Severe protein calorie malnutrition Trach placed on May 15 Anemia secondary to acute blood loss, possible multiple lab draws and related to advanced CKD Positive yeast on 1 out of 4 bottles on blood cultures Plan: 1) ICU monitoring 2) Continue mechanical ventilation 3) Continue IV sedation with fentanyl 4) Appreciate subspecialty input (nephrology and pulmonary and infectious disease and GI are following) 5) Continue IV TPN 6) SCD for DVT prophylaxis 7) dialysis per nephrology 8) antibiotics and antifungals per infectious disease 9) transfuse 1 unit of packed red blood cells today 10)Continue NG to low intermittent suction Trend labs He might need PEG tube (continue TPN for now) I consulted general surgery again yesterday for possible PEG await their input. Prognosis guarded CC time 31 minutes Comment Review of Relevant I have reviewed the following items juanita (where applicable) has been applied. Medications: Current Medications Medications (Trade) Dose Ordered Sig/Jodie Route PRN Reason Start Time Stop Time Status Last Admin Dose Admin Daptomycin 620 mg/ Sodium Chloride 50 ml @ 100 mls/hr Q48H IV 06/15/21 11:00 06/15/21 11:59 Sodium Chloride 80 meq/Potassium Chloride 20 meq/ Potassium Phosphate 13.6 mmol/Magnesium Sulfate 8 meq/ Multivitamins 5 ml/Zinc/Copper/ Manganese/ Selenium 1 ml/ Total Parenteral Nutrition/Amino Acids/Dextrose/ Fat Emulsion Intravenous 1,440 ml @ 60 mls/hr TPN CONT IV 06/15/21 22:00 06/16/21 21:59 06/15/21 22:07 Justifications for Admission General Conditions Altered mental status?: Yes Justification of admission: Patient has tachycardia (> 100 beats per minute) or hypotension (SBP < 90 mm Hg) leading to inadequate systemic perfusion as indicated by severe/persistent altered mental status. Other Justification ELENI RENTERIA III DO Jun 16, 2021 10:49
--- NOTE | 2021-06-16 14:00 | PDOC ---
Renal-Progress Notes Subjective Notes Notes NO COMPLAINTS History of Present Illness Hx of present illness NO ACUTE CHANGES Vitals Vitals Vital Signs Date Time Temp Pulse Resp B/P (MAP) Pulse Ox O2 Delivery O2 Flow Rate FiO2 06/16/21 13:28 99 10.0 06/16/21 12:00 Mechanical Ventilator 06/16/21 11:14 75 145/61 06/16/21 11:10 98.2 28 98.2 Weight Weight [ ] I.O. Intake and Output Intake and Output 06/16/21 07:00 Intake Total 2277 ml Output Total 225 ml Balance 2052 ml IV Total 2276 ml Tube Feeding 0 ml Blood Product IV Normal Saline Flush 1 ml Output Urine Total 50 ml Gastric Drainage Total 175 ml Labs Labs Laboratory Tests Test 06/15/21 14:27 06/15/21 18:13 06/15/21 20:57 06/15/21 23:47 Glucose (Fingerstick) 183 mg/dL (70-99) 187 mg/dL (70-99) 129 mg/dL (70-99) 137 mg/dL (70-99) Test 06/16/21 05:37 06/16/21 05:45 06/16/21 11:07 06/16/21 12:43 Glucose (Fingerstick) 187 mg/dL (70-99) 141 mg/dL (70-99) 140 mg/dL (70-99) White Blood Count 14.6 x10^3/uL (4.0-11.0) Red Blood Count 2.66 x10^6/uL (4.30-5.70) Hemoglobin 7.5 g/dL (13.0-17.5) Hematocrit 22.7 % (39.0-53.0) Mean Corpuscular Volume 86 fL (79-100) Mean Corpuscular Hemoglobin 28 pg (25-35) Mean Corpuscular Hemoglobin Concent 33 g/dL (31-37) Red Cell Distribution Width 17.2 % (11.5-14.5) Platelet Count 309 x10^3/uL (140-400) Neutrophils (%) (Auto) 56 % (31-73) Lymphocytes (%) (Auto) 19 % (24-48) Monocytes (%) (Auto) 13 % (0-9) Eosinophils (%) (Auto) 11 % (0-3) Basophils (%) (Auto) 1 % (0-3) Neutrophils # (Auto) 8.2 x10^3/uL (1.8-7.7) Lymphocytes # (Auto) 2.7 x10^3/uL (1.0-4.8) Monocytes # (Auto) 1.9 x10^3/uL (0.0-1.1) Eosinophils # (Auto) 1.7 x10^3/uL (0.0-0.7) Basophils # (Auto) 0.2 x10^3/uL (0.0-0.2) Sodium Level 138 mmol/L (136-145) Potassium Level 3.7 mmol/L (3.5-5.1) Chloride Level 103 mmol/L (98-107) Carbon Dioxide Level 29 mmol/L (21-32) Anion Gap 6 (6-14) Blood Urea Nitrogen 33 mg/dL (8-26) Creatinine 2.4 mg/dL (0.7-1.3) Estimated GFR (Cockcroft-Gault) 32.2 Glucose Level 197 mg/dL (70-99) Calcium Level 8.2 mg/dL (8.5-10.1) Micro Micro Microbiology 06/15/21 Blood Culture - Preliminary, Resulted NO GROWTH AFTER 1 DAY 06/15/21 Gram Stain - Final, Resulted 06/15/21 Aerobic Culture - Preliminary, Resulted 05/30/21 Gram Stain Evaluation - Final, Complete 05/30/21 Respiratory Culture - Final, Complete Review of Systems Constitutional: yes: unresponsive, other Physical Exam General Appearance: no apparent distress, other (ON THE VENT) Skin: warm, dry, edema Respiratory: decreased breath sounds Heart: S1S2 Abdomen: soft, N/T, distension, other Genitourinary: bladder flat, mooney catheter Extremities: pulses present, edema Neurology: other (sedated) Musculoskeletal: Other Assessment Assessment IMP FUNGEMIA HYPONATREMIA-RESOLVED HYPOKALEMIA LOW PO4-CORRECTED LOW MAG-CORRECTED [id number] UO BUT NO CLEARANCE CKD - SUSPECT STAGE 3B ACUTE HYPOXIC RESP FAILURE COVID 19 PNEUMONIA MET ACIDOSIS-BETTER LEUCOCYTOSIS ANEMIA S/P TRACH ANASARCA ILEUS PLAN RESP SUPPORT HD TODAY UF TOLERATED 4.0 LITERS PRBC ONE UNIT TODAY WITH HD AGAIN ALBUMIN PRIOR TO HD TO HELP UF AND BP WILL NEED TO CONTINUE DAILY HD DUE TO EDEMA ANTIBIOTICS ANTIFUNGALS CONT TPN POSSIBLE LTAC TRANSFER SOON WILL FOLLOW JEANINE NEWTON MD Jun 16, 2021 14:00
--- NOTE | 2021-06-16 15:04 | PDOC ---
Infectious Disease Note Subjective Subjective Patient is awake on ventilator T max 100.7 ROS ROS no n/v/d/ Vital Sign Vital Signs Vital Signs Date Time Temp Pulse Resp B/P (MAP) Pulse Ox O2 Delivery O2 Flow Rate FiO2 06/16/21 13:28 99 10.0 06/16/21 12:00 Mechanical Ventilator 06/16/21 11:14 75 145/61 06/16/21 11:10 98.2 28 98.2 Physical Exam PHYSICAL EXAM GENERAL: awake and comfortable on vent HEENT: Normocephalic, atraumatic, redness and erythema of both eyes improved, NG tube present NECK: right dialysis catheter present clean,Lt neck central line changed ( 05/11) Trach + HEART: S1, S2.no gallop LUNGS: Decreased breath sounds. ABDOMEN: Less distended, bowel sounds present GENITOURINARY: Nieves in place. EXTREMITIES: Edema present. DERMATOLOGIC: Warm, dry, no generalized rash. NEUROLOGIC: Opens eyes PICC line clean Labs Lab Laboratory Tests Test 06/15/21 18:13 06/15/21 20:57 06/15/21 23:47 06/16/21 05:37 Glucose (Fingerstick) 187 mg/dL (70-99) 129 mg/dL (70-99) 137 mg/dL (70-99) 187 mg/dL (70-99) Test 06/16/21 05:45 06/16/21 11:07 06/16/21 12:43 White Blood Count 14.6 x10^3/uL (4.0-11.0) Red Blood Count 2.66 x10^6/uL (4.30-5.70) Hemoglobin 7.5 g/dL (13.0-17.5) Hematocrit 22.7 % (39.0-53.0) Mean Corpuscular Volume 86 fL (79-100) Mean Corpuscular Hemoglobin 28 pg (25-35) Mean Corpuscular Hemoglobin Concent 33 g/dL (31-37) Red Cell Distribution Width 17.2 % (11.5-14.5) Platelet Count 309 x10^3/uL (140-400) Neutrophils (%) (Auto) 56 % (31-73) Lymphocytes (%) (Auto) 19 % (24-48) Monocytes (%) (Auto) 13 % (0-9) Eosinophils (%) (Auto) 11 % (0-3) Basophils (%) (Auto) 1 % (0-3) Neutrophils # (Auto) 8.2 x10^3/uL (1.8-7.7) Lymphocytes # (Auto) 2.7 x10^3/uL (1.0-4.8) Monocytes # (Auto) 1.9 x10^3/uL (0.0-1.1) Eosinophils # (Auto) 1.7 x10^3/uL (0.0-0.7) Basophils # (Auto) 0.2 x10^3/uL (0.0-0.2) Sodium Level 138 mmol/L (136-145) Potassium Level 3.7 mmol/L (3.5-5.1) Chloride Level 103 mmol/L (98-107) Carbon Dioxide Level 29 mmol/L (21-32) Anion Gap 6 (6-14) Blood Urea Nitrogen 33 mg/dL (8-26) Creatinine 2.4 mg/dL (0.7-1.3) Estimated GFR (Cockcroft-Gault) 32.2 Glucose Level 197 mg/dL (70-99) Calcium Level 8.2 mg/dL (8.5-10.1) Glucose (Fingerstick) 141 mg/dL (70-99) 140 mg/dL (70-99) Micro BLOOD CULTURE LC Final Final FINAL ID= [MANDI PARAPSILOSIS] NO FURTHER WORKUP MANDI PARAPSILOSIS Unless otherwise specified, Testing Performed by: [address] [address] For Inquires, the Physician may contact the Microbiology department at [phone] Objective Assessment Fungemia May 30, 2021, C parapsilosis, 06/02 neg RT IJ central line removed cath tip sent for cult 1. Febrile illness resolved 2. Leukocytosis, was on steroids,ileus could contribute,improving 3. COVID-19 pneumonia. 4. Acute hypoxic respiratory failure status post intubation.Now S/P Trach 05/15 Pleural effusion 5. Congestive heart failure, acute on chronic. 6. Acute kidney injury on chronic kidney disease on hemodialysis. 7. Diabetes mellitus 2. 8. Atrial fibrillation. 9. Anemia. 10. Protein-calorie malnutrition. 11. Hypertention 12.Hyponatremia 13. Ileus, Bowel obstruction Peg TF on hold, OG to LIS 14.on PPN 15.Mild to Moderate Pleural effusion 16.Lt eye conjunctivitis resolved Plan Plan of Care Reculture blood Cont Cefepime Dapto and micafungin Change all the lines if not done already Monitor labs and cultures Remains critically ill Continue supportive care Prognosis very poor Discussed with nursing staff JAD RIVERO MD Jun 16, 2021 15:04
[2021-06-16] MEDS ORDERED: ALBUMIN HUMAN 25% 200 ML IV PRN (16:45)
[2021-06-16] MEDS ORDERED: DIALYSIS PATIENT. MC PRN (16:45)
[2021-06-16] MEDS: ATORVASTATIN CALCIUM 40 MG TABLET. PO SCH (20:45)
[2021-06-16] MEDS: MONTELUKAST SODIUM 10 MG TABLET. PO SCH (20:45)
[2021-06-16] MEDS ORDERED: TOTAL PARENTERAL NUTRITION IV SCH (22:00)
[2021-06-16] MEDS ORDERED: [UNRECOGNIZED DRUG - OTHER] IV SCH (22:00)
[2021-06-16] MEDS ORDERED: AMINO ACID IV SCH (22:00)
[2021-06-16] MEDS ORDERED: DEXTROSE 70% IV SCH (22:00)
[2021-06-17] VITALS (20 sets, daily range): BP systolic 128–182; BP diastolic 52–98
[2021-06-17] MEDS: INSULIN LISPRO 300 UNITS/3 ML VIAL. SQ SCH ×9 (00:05→23:59)
[2021-06-17] MEDS: DEXMEDETOMIDINE 400 MCG in IV NORMAL SALINE 100ML 96 ML IV PRN ×5 (03:35→22:10)
[2021-06-17] MEDS: PROPOFOL 100 ML IV PRN ×3 (04:15→23:54)
[2021-06-17] MEDS: METOPROLOL IV PUSH 5 MG/5 ML VIAL. IVP SCH ×4 (05:32→23:55)
[2021-06-17 06:24] LABS: BASO # 0.2 x10^3/uL (0.0-0.2); BASO % 1 % (0-3); EOS # 1.8 x10^3/uL (0.0-0.7); EOS % 14 % (0-3); HEMATOCRIT 24.6 % (39.0-53.0); HEMOGLOBIN 8.1 g/dL (13.0-17.5); LYMPH # 2.4 x10^3/uL (1.0-4.8); LYMPH % 18 % (24-48); MEAN CORPUSCULAR HEMOGLOBIN 28 pg (25-35); MEAN CORPUSCULAR HGB CONC 33 g/dL (31-37); MEAN CORPUSCULAR VOLUME 86 fL (79-100); MONO # 1.4 x10^3/uL (0.0-1.1); MONO % 11 % (0-9); NEUT # 7.6 x10^3/uL (1.8-7.7); NEUT % 57 % (31-73); PLATELET COUNT 290 x10^3/uL (140-400); RED BLOOD COUNT 2.87 x10^6/uL (4.30-5.70); RED CELL DISTRIBUTION WIDTH 17.3 % (11.5-14.5); WHITE BLOOD COUNT 13.4 x10^3/uL (4.0-11.0)
[2021-06-17 06:52] LABS: CALCIUM 8.3 mg/dL (8.5-10.1); CREATININE 2.3 mg/dL (0.7-1.3); GFR 33.8; PHOSPHORUS 2.5 mg/dL (2.6-4.7); POTASSIUM 3.8 mmol/L (3.5-5.1)
[2021-06-17] MEDS: ASPIRIN CHEWABLE 81 MG TABLET. PO SCH (08:00)
[2021-06-17] MEDS: PANTOPRAZOLE IV PUSH 40 MG VIAL. IVP SCH (08:11)
[2021-06-17] MEDS: ACETAMINOPHEN 650 MG SUPP.RECT. PR PRN (08:12)
[2021-06-17] MEDS: BISACODYL 10 MG SUPP.RECT. PR PRN (08:12)
[2021-06-17] MEDS: CEFEPIME HCL IV Push 1 GM VIAL. IVP SCH (08:12)
[2021-06-17] MEDS: INSULIN GLARGINE SYRINGE. SQ SCH ×2 (08:13→20:54)
[2021-06-17] MEDS: MICAFUNGIN 100 MG in IV DEXTROSE 5% 100ML 100 ML IV SCH (08:14)
[2021-06-17] MEDS: TPN PER PHARMACY MC PRN (08:32)
--- NOTE | 2021-06-17 08:34 | NUR ---
Pharmacy TPN Dosing Note S: NILAM LAN is a 75 year old M Currently receiving Central Continuous TPN started 05/22/21 B:Pertinent PMH: ILEUS Height: 6 feet, 2 inches Weight: 137.3 kg Current diet: NPO LABS: Sodium: 136 Potassium: 3.8 Chloride: 99 Calcium: 8.3 Corrected Calcium: 10.14 Magnesium: 2.0 CO2: 29 SCr: 2.3 Glucose: 143-194 Albumin: 1.7 AST: 31 ALT: 26 TPN FORMULA: TPN TYPE: Central Continuous AMINO ACIDS: 110 gm DEXTROSE: 295 gm LIPIDS: 20 gm SODIUM CHLORIDE: 80 mEq POTASSIUM CHLORIDE: 20 mEq POTASSIUM PHOSPHATE: 15 mmol MAGNESIUM: 8 mEq MULTIPLE VITAMIN: 5 ml TRACE ELEMENTS: 1 ml(s) TPN PLAN: Propofol continues at ~10ml/hr (equating to about 20g lipids per day) to lipids reduced to 20g/bag of TPN. Kphos incraesed to 15mmol/bag R: Change TPN per plan and ordered formula Will monitor electrolytes, glucose, and tolerance to TPN. Jaqueline Watson RPH, 06/17/21 [id number]
[2021-06-17] MEDS: NYSTATIN TOPICAL POWDER 15GM BOTTLE. TP SCH ×2 (09:36→20:55)
--- NOTE | 2021-06-17 10:04 | PDOC ---
Renal-Progress Notes Subjective Notes Notes NO ACUTE CHANGES History of Present Illness Hx of present illness STABLE Vitals Vitals Vital Signs Date Time Temp Pulse Resp B/P (MAP) Pulse Ox O2 Delivery O2 Flow Rate FiO2 06/17/21 09:03 Mechanical Ventilator 06/17/21 09:02 58 22 147/56 (86) 100 06/17/21 08:18 99.8 99.8 06/16/21 15:21 10.0 Weight Weight [ ] I.O. Intake and Output Intake and Output 06/17/21 07:00 Intake Total 2233.4 ml Output Total 410 ml Balance 1823.4 ml IV Total 2233.4 ml Output Urine Total 135 ml Gastric Drainage Total 275 ml Labs Labs Laboratory Tests Test 06/16/21 11:07 06/16/21 12:43 06/16/21 18:06 06/16/21 20:57 Glucose (Fingerstick) 141 mg/dL (70-99) 140 mg/dL (70-99) 143 mg/dL (70-99) 169 mg/dL (70-99) Test 06/17/21 00:01 06/17/21 05:24 06/17/21 06:00 Glucose (Fingerstick) 192 mg/dL (70-99) 194 mg/dL (70-99) White Blood Count 13.4 x10^3/uL (4.0-11.0) Red Blood Count 2.87 x10^6/uL (4.30-5.70) Hemoglobin 8.1 g/dL (13.0-17.5) Hematocrit 24.6 % (39.0-53.0) Mean Corpuscular Volume 86 fL (79-100) Mean Corpuscular Hemoglobin 28 pg (25-35) Mean Corpuscular Hemoglobin Concent 33 g/dL (31-37) Red Cell Distribution Width 17.3 % (11.5-14.5) Platelet Count 290 x10^3/uL (140-400) Neutrophils (%) (Auto) 57 % (31-73) Lymphocytes (%) (Auto) 18 % (24-48) Monocytes (%) (Auto) 11 % (0-9) Eosinophils (%) (Auto) 14 % (0-3) Basophils (%) (Auto) 1 % (0-3) Neutrophils # (Auto) 7.6 x10^3/uL (1.8-7.7) Lymphocytes # (Auto) 2.4 x10^3/uL (1.0-4.8) Monocytes # (Auto) 1.4 x10^3/uL (0.0-1.1) Eosinophils # (Auto) 1.8 x10^3/uL (0.0-0.7) Basophils # (Auto) 0.2 x10^3/uL (0.0-0.2) Sodium Level 136 mmol/L (136-145) Potassium Level 3.8 mmol/L (3.5-5.1) Chloride Level 99 mmol/L (98-107) Carbon Dioxide Level 29 mmol/L (21-32) Anion Gap 8 (6-14) Blood Urea Nitrogen 30 mg/dL (8-26) Creatinine 2.3 mg/dL (0.7-1.3) Estimated GFR (Cockcroft-Gault) 33.8 Glucose Level 183 mg/dL (70-99) Calcium Level 8.3 mg/dL (8.5-10.1) Phosphorus Level 2.5 mg/dL (2.6-4.7) Magnesium Level 2.0 mg/dL (1.8-2.4) Triglycerides Level 124 mg/dL (0-150) Micro Micro Microbiology 06/15/21 Blood Culture - Preliminary, Resulted NO GROWTH AFTER 1 DAY 06/15/21 Gram Stain - Final, Resulted 06/15/21 Aerobic Culture - Preliminary, Resulted 05/30/21 Gram Stain Evaluation - Final, Complete 05/30/21 Respiratory Culture - Final, Complete Review of Systems Constitutional: yes: unresponsive, other Physical Exam General Appearance: no apparent distress, other (ON THE VENT) Skin: warm, dry, edema Respiratory: decreased breath sounds Heart: S1S2 Abdomen: soft, N/T, distension, other Genitourinary: bladder flat, mooney catheter Extremities: pulses present, edema Neurology: other (sedated) Musculoskeletal: Other Assessment Assessment IMP FUNGEMIA HYPONATREMIA-RESOLVED HYPOKALEMIA LOW PO4-CORRECTED LOW MAG-CORRECTED [id number] UO BUT NO CLEARANCE CKD - SUSPECT STAGE 3B ACUTE HYPOXIC RESP FAILURE COVID 19 PNEUMONIA MET ACIDOSIS-BETTER LEUCOCYTOSIS ANEMIA S/P TRACH ANASARCA ILEUS PLAN RESP SUPPORT HD TOMORROW WILL NEED TO CONTINUE DAILY HD DUE TO EDEMA ANTIBIOTICS ANTIFUNGALS CONT TPN WILL FOLLOW JEANINE NEWTON MD Jun 17, 2021 10:04
--- NOTE | 2021-06-17 11:19 | PDOC ---
Infectious Disease Note Subjective Subjective Patient is awake on ventilator ROS ROS No nausea vomiting diarrhea Vital Sign Vital Signs Vital Signs Date Time Temp Pulse Resp B/P (MAP) Pulse Ox O2 Delivery O2 Flow Rate FiO2 06/17/21 10:34 52 122/66 06/17/21 09:03 Mechanical Ventilator 06/17/21 09:02 22 100 06/17/21 08:18 99.8 99.8 06/16/21 15:21 10.0 Physical Exam PHYSICAL EXAM GENERAL: awake and comfortable on vent HEENT: Normocephalic, atraumatic, redness and erythema of both eyes improved, NG tube present NECK: right dialysis catheter present clean,Lt neck central line changed ( 05/11) Trach + HEART: S1, S2.no gallop LUNGS: Decreased breath sounds. ABDOMEN: Less distended, bowel sounds present GENITOURINARY: Nieves in place. EXTREMITIES: Edema present. DERMATOLOGIC: Warm, dry, no generalized rash. NEUROLOGIC: Opens eyes PICC line clean Labs Lab Laboratory Tests Test 06/16/21 12:43 06/16/21 18:06 06/16/21 20:57 06/17/21 00:01 Glucose (Fingerstick) 140 mg/dL (70-99) 143 mg/dL (70-99) 169 mg/dL (70-99) 192 mg/dL (70-99) Test 06/17/21 05:24 06/17/21 06:00 Glucose (Fingerstick) 194 mg/dL (70-99) White Blood Count 13.4 x10^3/uL (4.0-11.0) Red Blood Count 2.87 x10^6/uL (4.30-5.70) Hemoglobin 8.1 g/dL (13.0-17.5) Hematocrit 24.6 % (39.0-53.0) Mean Corpuscular Volume 86 fL (79-100) Mean Corpuscular Hemoglobin 28 pg (25-35) Mean Corpuscular Hemoglobin Concent 33 g/dL (31-37) Red Cell Distribution Width 17.3 % (11.5-14.5) Platelet Count 290 x10^3/uL (140-400) Neutrophils (%) (Auto) 57 % (31-73) Lymphocytes (%) (Auto) 18 % (24-48) Monocytes (%) (Auto) 11 % (0-9) Eosinophils (%) (Auto) 14 % (0-3) Basophils (%) (Auto) 1 % (0-3) Neutrophils # (Auto) 7.6 x10^3/uL (1.8-7.7) Lymphocytes # (Auto) 2.4 x10^3/uL (1.0-4.8) Monocytes # (Auto) 1.4 x10^3/uL (0.0-1.1) Eosinophils # (Auto) 1.8 x10^3/uL (0.0-0.7) Basophils # (Auto) 0.2 x10^3/uL (0.0-0.2) Sodium Level 136 mmol/L (136-145) Potassium Level 3.8 mmol/L (3.5-5.1) Chloride Level 99 mmol/L (98-107) Carbon Dioxide Level 29 mmol/L (21-32) Anion Gap 8 (6-14) Blood Urea Nitrogen 30 mg/dL (8-26) Creatinine 2.3 mg/dL (0.7-1.3) Estimated GFR (Cockcroft-Gault) 33.8 Glucose Level 183 mg/dL (70-99) Calcium Level 8.3 mg/dL (8.5-10.1) Phosphorus Level 2.5 mg/dL (2.6-4.7) Magnesium Level 2.0 mg/dL (1.8-2.4) Triglycerides Level 124 mg/dL (0-150) Micro BLOOD CULTURE LC Final Final FINAL ID= [MANDI PARAPSILOSIS] NO FURTHER WORKUP MANDI PARAPSILOSIS Unless otherwise specified, Testing Performed by: [address] [address] For Inquires, the Physician may contact the Microbiology department at [phone] Objective Assessment Fungemia May 30, 2021, C parapsilosis, 06/02 neg RT IJ central line removed cath tip sent for cult 1. Febrile illness resolved 2. Leukocytosis, was on steroids,ileus could contribute,improving 3. COVID-19 pneumonia. 4. Acute hypoxic respiratory failure status post intubation.Now S/P Trach 8/10 Pleural effusion 5. Congestive heart failure, acute on chronic. 6. Acute kidney injury on chronic kidney disease on hemodialysis. 7. Diabetes mellitus 2. 8. Atrial fibrillation. 9. Anemia. 10. Protein-calorie malnutrition. 11. Hypertention 12.Hyponatremia 13. Ileus, Bowel obstruction Peg TF on hold, OG to LIS 14.on PPN 15.Mild to Moderate Pleural effusion 16.Lt eye conjunctivitis resolved Plan Plan of Care Reculture blood so far negative Cont Cefepime Dapto and micafungin Change all the lines if not done already Monitor labs and cultures Remains critically ill Continue supportive care Prognosis very poor Discussed with nursing staff JAD RIVERO MD Jun 17, 2021 11:19
--- NOTE | 2021-06-17 11:23 | PDOC ---
PULMONARY PROGRESS NOTES DATE: 06/17/21 TIME: 11:22 Subjective remains on vent support on AC mode anemia on labs this am no other concerns from nursing overnight Vitals Vital Signs Date Time Temp Pulse Resp B/P (MAP) Pulse Ox O2 Delivery O2 Flow Rate FiO2 06/17/21 10:34 52 122/66 06/17/21 09:03 Mechanical Ventilator 06/17/21 09:02 22 100 06/17/21 08:18 99.8 99.8 06/16/21 15:21 10.0 Comments Tracheostomy ros unable to obtain Lungs: Clear Cardiovascular: S1, S2 Abdomen: Soft, Other (Nontender) Extremities: Other (1+ edema) Skin: Warm Labs Laboratory Tests Test 06/15/21 14:27 06/15/21 18:13 06/15/21 20:57 06/15/21 23:47 Glucose (Fingerstick) 183 mg/dL (70-99) 187 mg/dL (70-99) 129 mg/dL (70-99) 137 mg/dL (70-99) Test 06/16/21 05:37 06/16/21 05:45 06/16/21 11:07 06/16/21 12:43 Glucose (Fingerstick) 187 mg/dL (70-99) 141 mg/dL (70-99) 140 mg/dL (70-99) White Blood Count 14.6 x10^3/uL (4.0-11.0) Red Blood Count 2.66 x10^6/uL (4.30-5.70) Hemoglobin 7.5 g/dL (13.0-17.5) Hematocrit 22.7 % (39.0-53.0) Mean Corpuscular Volume 86 fL (79-100) Mean Corpuscular Hemoglobin 28 pg (25-35) Mean Corpuscular Hemoglobin Concent 33 g/dL (31-37) Red Cell Distribution Width 17.2 % (11.5-14.5) Platelet Count 309 x10^3/uL (140-400) Neutrophils (%) (Auto) 56 % (31-73) Lymphocytes (%) (Auto) 19 % (24-48) Monocytes (%) (Auto) 13 % (0-9) Eosinophils (%) (Auto) 11 % (0-3) Basophils (%) (Auto) 1 % (0-3) Neutrophils # (Auto) 8.2 x10^3/uL (1.8-7.7) Lymphocytes # (Auto) 2.7 x10^3/uL (1.0-4.8) Monocytes # (Auto) 1.9 x10^3/uL (0.0-1.1) Eosinophils # (Auto) 1.7 x10^3/uL (0.0-0.7) Basophils # (Auto) 0.2 x10^3/uL (0.0-0.2) Sodium Level 138 mmol/L (136-145) Potassium Level 3.7 mmol/L (3.5-5.1) Chloride Level 103 mmol/L (98-107) Carbon Dioxide Level 29 mmol/L (21-32) Anion Gap 6 (6-14) Blood Urea Nitrogen 33 mg/dL (8-26) Creatinine 2.4 mg/dL (0.7-1.3) Estimated GFR (Cockcroft-Gault) 32.2 Glucose Level 197 mg/dL (70-99) Calcium Level 8.2 mg/dL (8.5-10.1) Test 06/16/21 18:06 06/16/21 20:57 06/17/21 00:01 06/17/21 05:24 Glucose (Fingerstick) 143 mg/dL (70-99) 169 mg/dL (70-99) 192 mg/dL (70-99) 194 mg/dL (70-99) Test 06/17/21 06:00 White Blood Count 13.4 x10^3/uL (4.0-11.0) Red Blood Count 2.87 x10^6/uL (4.30-5.70) Hemoglobin 8.1 g/dL (13.0-17.5) Hematocrit 24.6 % (39.0-53.0) Mean Corpuscular Volume 86 fL (79-100) Mean Corpuscular Hemoglobin 28 pg (25-35) Mean Corpuscular Hemoglobin Concent 33 g/dL (31-37) Red Cell Distribution Width 17.3 % (11.5-14.5) Platelet Count 290 x10^3/uL (140-400) Neutrophils (%) (Auto) 57 % (31-73) Lymphocytes (%) (Auto) 18 % (24-48) Monocytes (%) (Auto) 11 % (0-9) Eosinophils (%) (Auto) 14 % (0-3) Basophils (%) (Auto) 1 % (0-3) Neutrophils # (Auto) 7.6 x10^3/uL (1.8-7.7) Lymphocytes # (Auto) 2.4 x10^3/uL (1.0-4.8) Monocytes # (Auto) 1.4 x10^3/uL (0.0-1.1) Eosinophils # (Auto) 1.8 x10^3/uL (0.0-0.7) Basophils # (Auto) 0.2 x10^3/uL (0.0-0.2) Sodium Level 136 mmol/L (136-145) Potassium Level 3.8 mmol/L (3.5-5.1) Chloride Level 99 mmol/L (98-107) Carbon Dioxide Level 29 mmol/L (21-32) Anion Gap 8 (6-14) Blood Urea Nitrogen 30 mg/dL (8-26) Creatinine 2.3 mg/dL (0.7-1.3) Estimated GFR (Cockcroft-Gault) 33.8 Glucose Level 183 mg/dL (70-99) Calcium Level 8.3 mg/dL (8.5-10.1) Phosphorus Level 2.5 mg/dL (2.6-4.7) Magnesium Level 2.0 mg/dL (1.8-2.4) Triglycerides Level 124 mg/dL (0-150) Laboratory Tests Test 06/16/21 12:43 06/16/21 18:06 06/16/21 20:57 06/17/21 00:01 Glucose (Fingerstick) 140 mg/dL (70-99) 143 mg/dL (70-99) 169 mg/dL (70-99) 192 mg/dL (70-99) Test 06/17/21 05:24 06/17/21 06:00 Glucose (Fingerstick) 194 mg/dL (70-99) White Blood Count 13.4 x10^3/uL (4.0-11.0) Red Blood Count 2.87 x10^6/uL (4.30-5.70) Hemoglobin 8.1 g/dL (13.0-17.5) Hematocrit 24.6 % (39.0-53.0) Mean Corpuscular Volume 86 fL (79-100) Mean Corpuscular Hemoglobin 28 pg (25-35) Mean Corpuscular Hemoglobin Concent 33 g/dL (31-37) Red Cell Distribution Width 17.3 % (11.5-14.5) Platelet Count 290 x10^3/uL (140-400) Neutrophils (%) (Auto) 57 % (31-73) Lymphocytes (%) (Auto) 18 % (24-48) Monocytes (%) (Auto) 11 % (0-9) Eosinophils (%) (Auto) 14 % (0-3) Basophils (%) (Auto) 1 % (0-3) Neutrophils # (Auto) 7.6 x10^3/uL (1.8-7.7) Lymphocytes # (Auto) 2.4 x10^3/uL (1.0-4.8) Monocytes # (Auto) 1.4 x10^3/uL (0.0-1.1) Eosinophils # (Auto) 1.8 x10^3/uL (0.0-0.7) Basophils # (Auto) 0.2 x10^3/uL (0.0-0.2) Sodium Level 136 mmol/L (136-145) Potassium Level 3.8 mmol/L (3.5-5.1) Chloride Level 99 mmol/L (98-107) Carbon Dioxide Level 29 mmol/L (21-32) Anion Gap 8 (6-14) Blood Urea Nitrogen 30 mg/dL (8-26) Creatinine 2.3 mg/dL (0.7-1.3) Estimated GFR (Cockcroft-Gault) 33.8 Glucose Level 183 mg/dL (70-99) Calcium Level 8.3 mg/dL (8.5-10.1) Phosphorus Level 2.5 mg/dL (2.6-4.7) Magnesium Level 2.0 mg/dL (1.8-2.4) Triglycerides Level 124 mg/dL (0-150) Medications Active Scripts Medications Dose Route/Sig Max Daily Dose Days Date Category Glyburide 2.5 Mg Tablet 1 Tab PO DAILY 04/19/21 Rx Polyethylene Glycol 3350 17 Gm Powd.pack 17 Gm PO DAILY 04/19/21 Rx Dok (Docusate Sodium) 100 Mg Capsule 100 Mg PO PRN DAILY PRN 30 04/19/21 Rx Bisacodyl 5 Mg Tablet. 5 Mg PO PRN DAILY PRN 14 04/19/21 Rx Acetaminophen 325 Mg Tablet 650 Mg PO PRN Q4HRS PRN 14 04/19/21 Rx Aspirin Ec (Aspirin) 81 Mg Tablet.dr 81 Mg PO DAILYWBKFT 30 04/19/21 Rx Hydralazine Hcl 25 Mg Tablet 25 Mg PO QID 30 04/19/21 Rx Fenofibrate 54 Mg Tablet 1 Tab PO DAILY 04/17/21 Reported Potassium Chloride (Potassium Chloride) 20 Meq Tablet.er 20 Meq PO DAILY 04/17/21 Reported Coreg (Carvedilol) 12.5 Mg Tablet 37.5 Mg PO BIDWMEALS 04/17/21 Reported Rosuvastatin Calcium 40 Mg Tablet 40 Mg PO QHS 04/17/21 Reported Gabapentin (Gabapentin) 100 Mg Capsule 200 Mg PO BID 04/17/21 Reported Montelukast Sodium Tablet (Montelukast Sodium) 10 Mg Tablet 10 Mg PO HS 04/17/21 Reported Protonix (Pantoprazole Sodium) 20 Mg Tablet.dr 2 Tab PO DAILY 04/17/21 Reported Amlodipine Besylate 5 Mg Tablet 5 Mg PO DAILY 04/17/21 Reported Furosemide 40 Mg Tablet 1 Tab PO DAILY 04/17/21 Reported Proair Hfa Inhaler (Albuterol Sulfate) 8.5 Gm Hfa.aer.ad 2 Puff IH PRN Q4-6HRS PRN 04/16/21 Reported Advair 100-50 Diskus (Fluticasone/Salmeterol) 1 Each Disk.w.dev 1 Puff IH BID 04/16/21 Reported Comments Impression . IMPRESSION: 1. Acute hypoxic respiratory failure, multifactorial/COVID-19 viral pneumonia/ARDS, ongoing, intubated 04/25/2021, now status post tracheostomy 05/15/[address] chest with bilateral diffuse interstitial infiltrates without any significant pleural effusion 3. Leukocytosis, sepsis 4. Non-ST segment elevation GA 5. History of tobacco use, suspect COPD, unknown FEV1 6. Chronic kidney disease.== HD as needed per renal 7. Metabolic acidosis multifactorial, improved 8. Abnormal chest x-ray, compatible with ARDS CHF 9. Hypoglycemia, continue to monitor 10. Hypotension multifactorial 11. Fever-- 12. Anemia- 13. Atrial fibrillation with rapid ventricular response, currently rate controlled 14. Ileus 15. Type 2 diabetes 16. A. fib 17. Fever secondary to fungemia Plan . Updated 06/17/21 Continue current vent support. We will try CPAP again today. Follow ID recs -- ongoing fever/Fungemia Follow nephrology recs Follow GI recs -- anemia on labs today/ illeus DVT/GI PPX D/W RN and RT [facility] has denied patient Patient has been very difficult to wean due to multifactorial etiologies including arrhythmias, increased respiratory rate, poor control of blood pressure during trials. We will reach out to the family to discuss goals of care. We will try CPAP again today. Pt. is DNR Updated 06/16/21 Continue current vent support Follow ID recs -- ongoing fever/Fungemia Follow nephrology recs Follow GI recs -- anemia on labs today/ illeus DVT/GI PPX D/W RN and RT [facility] has denied patient Patient has been very difficult to wean due to multifactorial etiologies including arrhythmias, increased respiratory rate, poor control of blood pressure during trials. We will reach out to the family to discuss goals of care. Pt. is DNR Updated 06/15/21 Continue current vent support Follow ID recs -- ongoing fever/Fungemia Follow nephrology recs Follow GI recs -- anemia on labs today/ illeus DVT/GI PPX D/W RN and RT Planned to possibly DC to [facility] today Pt. is DNR Updated 06/14 Over the last 24 to 48 hours, patient not tolerating any weaning Continues to have a fever Being treated for fungemia Central line removed catheter tip sent for culture Follow nephrology input Hold off weaning Ileus persist Long-term and short-term prognosis is poor Discussed with RT and RN updated 06/13 Hemoglobin stable Follow GI input Hemodialysis per Dr. Ariza We will attempt pressure support Antibiotics per JONES RAVI MD Jun 17, 2021 11:23
[2021-06-17] MEDS: DAPTOMYCIN IV SCH (11:35)
[2021-06-17] MEDS: NORMAL SALINE IV SCH (11:35)
--- NOTE | 2021-06-17 13:58 | PDOC ---
[employer] PROGRESS NOTE Date of Service DOS: DATE: 06/17/21 TIME: 13:55 Chief Complaint Chief Complaint Respiratory failure requiring intubation COVID-19 Acute MS A. fib SIRS Hypertension with hypertensive urgency Hyperlipidemia CKD Diabetes History of bilateral subclavian stenosis History of marijuana use Severe protein calorie malnutrition Trach placed on May 15 GI consulted for PEG evaluation --> patient with a lot of vomiting yesterday thus current NG tube to low intermittent suction Anemia secondary to acute blood loss, possible multiple lab draws and related to advanced CKD Positive yeast on 1 out of 4 bottles on blood cultures History of Present Illness History of Present Illness 06/17/2021 Patient seen and examined in the ICU Still mechanically ventilated AC/20/500/40/5 of PEEP with 100% saturation Currently has NG to suction (low intermittent suction) Sedated with fentanyl propofol and Precedex Has IV TPN hanging Has admit on his right hand SCDs in place Nieves to bedside drainage He remains critically ill 06/16/2021 Patient seen and examined in the ICU Discussed with RT Discussed with RN Chart reviewed Patient remains mechanically ventilated via tracheostomy AC/20/300/40 percent with 5 of PEEP Satting 98% Sedated with fentanyl Has TPN hanging Has IV microfungi and hanging He remains very critically ill 06/15/2021 Patient seen and examined in the ICU He remains on the vent via tracheostomy AC/20/500/40 percent with 5 of PEEP Setting in the mid 90s Has fentanyl and Precedex for sedation His hemoglobin is running low today at 6.7 I have ordered a unit of blood He is on IV TPN Discussed with RN Chart reviewed He remains critically ill 06/14/2021 patient seen and examined in the ICU chart reviewed discussed with RN he remains on the vent via tracheostomy vent settings as follows AC/20/500/40 percent with 5 of PEEP has mitts on for patient safety has SCDs on Nieves to bedside drainage sedated with fentanyl propofol and Precedex he remains critically ill 06/13/2021 Patient seen and examined in the ICU Chart reviewed Discussed with RN Vent settings as follows Spontaneous respirations with 40% FiO2 10 of pressure support Sedated with fentanyl propofol and Dex Has Nieves to bedside drainage Mitts for patient safety 06/12/2021 Patient seen and examined in the ICU He is currently on dialysis (dialysis nurse states we took 2 L off today and we plan to do daily dialysis for a few days per Dr. Ariza) Has trach shield in place Chart reviewed Discussed with RN He remains critically ill 06/10: Tolerating 30 cc every 3 hours tube feed with minimal residuals overnight. Remains in A. fib. Abdomen appears a bit more distended, soft. Minimally sedated propofol Precedex on E [employer] FiO2 40% PEEP 5. CC time 31 min spent in reviewing chart, labs, and images. Discussed with RN and SW. Mr Cunha is a 75 yo male w/ PMHx CAD, HTN, Hyperlipidemia, subclavian steel syndrome, subclavian stenosis s/p left subclavian sent placement complicated by retroperitoneal hematoma s/p evacuation in 08/2015), asthma, BART, CKD, DM2 who presented from home with home health care noted that he was short of breath and valverde with O2 saturations less than 89% as low as 84% not improved with nasal cannulated oxygen placed on CPAP and brought to ED for further care. He was just discharged from the hospital a week ago on April 19, 2021 for abdominal pain and was going for further cardiac testing with outpatient stress testing scheduled on May 28, 2021. Had echocardiogram April 17, 2021 with normal-appearing EF with moderate concentric LVH no significant valvular abnormalities. WBC 20, Hb 10.7, platelets 268, NA 140, K3.8, BUN 21, CR 2.9, glucose 162, albumin 3, troponin I 1.372, NT proBNP 33,318. EKG appears sinus tachycardia rate of 105 bpm with multiple PACs small ST depressions in lead II and V5. TWI in V6. Chest radiograph with diffuse interstitial and alveolar opacities and ET tube 5.8 cm above the leilani. Due to worsening respiratory status ED physician elected to intubate patient. Seen postintubation. Blood pressure little low after propofol bolus, but improved. Significant white frothy sputum per ET tube. Admitted to ICU for further care 04/25: On vent FiO2 50, PEEP 5. Febrile, T-max 103.3. Patient was initiated on cooling blankets. Procalcitonin 0.13. 04/26: COVID-19 positive. Febrile overnight that was managed with cooling blankets. On vent with FiO2 50%, PEEP 5. Per cardiology, elevated troponins likely secondary to demand ischemia; continue heparin drip per cardiology. Continue treatment with remdesivir, steroids, and antibiotics. 04/27: Afebrile. Vent with FiO2 50%, PEEP 5. Troponin 2.8 yesterday; probable type II, demand ischemia. New onset A. fib. Cont heparin gtt and prn digoxin, per cardiology. Contnue treatment with remdesivir, steroids, and prophylactic antibiotics. BG 323 this morning; will add basal insulin. 04/28: Afebrile. FiO2 50%, PEEP 5. Nontunneled HD catheter placed yesterday due to worsening kidney function; eGFR 16 (CKD4). Chest x-ray showed unchanged interstitial opacities. Continue empiric antibiotics, steroids, and remdesivir. Continue heparin infusion, for new dx A. fib. 04/29: Afebrile, remains on vent at FiO2 45%, PEEP 5. WBC 20.4. Hemodialysis per nephrology. We will continue treatment with empiric antibiotics, remdesivir, and steroids. Continue heparin infusion and supportive care. 04/30: Patient seen and examined in the [place] [id number] ICU. He remains on the vent. AC/20/500/40 5% with 5 PEEP. Currently on dialysis. Has OG feeds running. Has a Nieves to bedside drainage. Sedated with propofol and fentanyl. He remains critically ill 05/01: Patient seen and examined in the [place] [id number] ICU. He is still intubated. AC/20/500/40 percent with 5 of PEEP. In A. fib. Sedated with propofol fentanyl and Versed. Has a heparin drip 05/02: Patient seen and examined in the [facility] ICU. He is sedated with propofol fentanyl and Versed. AC/20/500/40 percent with 5 of PEEP. He remains critically ill 05/03: Patient seen and examined in the [facility]- ICU. He is still intubated. AC/20/500/70 percent with 5 of PEEP. Sedated with fentanyl Versed and propofol. Remains critically ill 05/04: Patient seen and examined in the [facility]- ICU. Still intubated. Sedated w ith propofol and fentanyl. AC/20/500/70 percent with 5 of PEEP. On dialysis currently 05/05: Patient seen and examined in the [place] [id number] ICU. He remains on the vent. AC/20/500/40 percent with 5 of PEEP. He remains critically ill 05/06: Patient seen and examined in the [facility]- ICU. He remains mechanically ventilated. AC/20/500/40 05/07: Patient seen and examined in the [place] [id number] ICU. He remains mechanically ventilated. ILDA on CKD - ATN 2/2 sepsis/ Hypotension,UOP good,on IV Lasix ; requiring dialysis, . AC/20/500/40 percent with 5 of PEEP. Sedated with propofol Dex and fentanyl 05/08: Currently on 40%, 5 of PEEP. now on cardene gtt. Patient seen and examined in the [place] [id number] ICU. 05/09: VENT [id number]%, 5 of PEEP. Mild pulmonary edema with new small right pleural effusion and basilar opacities. Change central line and send cath tip for cultures. 05/10: VENT [id number]%, 5 of PEEP. Mild pulmonary edema with new small right pleural effusion and basilar opacities. Patient seen and examined in the [place] [id number] ICU 05/11: Continue iv cefepime , add zyvox, sputum culture 05/12: Continue iv cefepime , add zyvox, sputum culture. VENT [id number]%, 5 of PEEP. now on cardene gtt prn 05/13: Did not tolerate sedation vacation 05/11/2021, profoundly hypertensive. ABG/CXR--changes as needed. Continue iv cefepime , add zyvox, sputum culture. VENT %, 5 of PEEP. Mild pulmonary edema with new small right pleural effusion and basilar opacities. now on cardene gtt prn 05/14: Patient seen and examined at bedside. Remains intubated and sedated pl anning for tracheostomy tomorrow. Continue current respiratory support; continue antibiotics, continue sedation. Follow recommendations of pulmonary, renal, and infectious disease 05/15: Patient seen and examined at bedside. Remains intubated and sedated pl anning for tracheostomy today. Continue current respiratory support; continue antibiotics, continue sedation. 05/16: Patient seen and examined at bedside. Underwent tracheostomy yesterday today tolerated well. When seen this morning patient is still notably sedated respiratory status is stable. measures. 05/17: Patient seen and examined at bedside. Attempting to wean sedation. Pa tient with some diarrhea. Per infectious disease will give erythromycin eye ointment for eye lesions. Nephro and pulm also following. 05/18: Patient seen and examined at bedside. Attempting to increase tube feeds, GI consulted for PEG evaluation. Otherwise no major clinical changes. Continue to wean sedation. Plan of care discussed with bedside nurse. 05/19: Patient seen and examined at bedside. Apparently had a fair bit of vomiting overnight. GI following for PEG evaluation. Otherwise patient remain ed stable. Plan of care discussed with bedside nurse. 05/20: Patient seen and examined at bedside. Again had multiple bouts of vomiting yesterday. GI continuing to follow for PEG evaluation although on hold right now due to persistent vomiting. Leukocytosis 05/21: Afebrile, no acute events overnight. Remains on vent, FiO2 40%, PEEP 5. S/P tracheostomy on 05/15/2021. KUB on 05/19/2021 consistent with ileus. Per GI, continue NG tube to suction and parenteral nutrition for now. Continue IV antibiotics, per ID. Continue hemodialysis 05/22: Afebrile. On vent with FiO2 40%, PEEP 5. Excessive NG output. Continue NG tube to suction for now; PEG on hold for now. Continue hemodialysis, per nephrology. Continue IV antibiotics, per ID. 05/23: Afebrile. Vent with FiO2 40%, PEEP 5. NG tube for 635 mL out overnight. Continue NG tube to suction. HD 05/24: No acute events overnight. Afebrile. NG tube output has decreased. Kidney function appears stable. Continue IV antibiotics, per ID. Patient has been accepted to [facility], pending insurance authorization. 05/25: Afebrile. On vent with FiO2 40%, PEEP 5. Hemoglobin 8.6 yesterday, hemoglobin 7.3 today. Reportedly had HD yesterday. Continue IV antibiotics, per ID; WBC possibly reactive to ileus. Has been accepted at [facility]; transfer pending, but will need PEG tube placement prior. 05/26: Afebrile. On vent with FiO2 40%, PEEP 5. Hemoglobin 7.3 yesterday, and hemoglobin 7.2 today; continue to trend. Leukocytosis slightly improved, WBC 12.9 today. Has been accepted at [facility]; transfer pending, but will need PEG tube placement prior. 05/27: Afebrile. On vent with FiO2 40%, PEEP 5. Hemoglobin remains stable at 7.2 today; continue to trend. WBC 13.4. Kidney function appears to be stabilized. LTAC transfer is pending PEG tube placement. Off meropenem; will continue to monitor. Kidney function appears to be stable. 05/28: No acute events overnight. Patient doing well on trach with settings of 40% FiO2 and PEEP of 8. Pending PEG placement after ileus is resolved will defer this to GI for timing of PEG placement.. Also pending tunneled catheter placement for dialysis. 05/29: No acute events or night. Patient tolerating trach collar humidified. Saturating at 99%. Pending PICC line placement and IJ central line removal. Per ID. Possibly in not needing HD. Making urine adequately with Lasix as needed. 05/30: No acute events overnight. Patient doing well on trach collar. Hemoglobin decreased down to 6.7 pending 1 unit PRBC transfusion. Restarted on linezolid and Flagyl and cefepime. Pending PICC placement and central line IJ removal. 05/31: No acute events overnight. Patient saturating 100% on trach collar. Hemoglobin improved after 1 unit PRBC transfusion to 8.4. Patient is currently undergoing dialysis and his labs have been stable. Patient's chart, labs, images were reviewed and discussed with RN 06/01: No acute events overnight. Patient saturating well on trach collar. Patient seen and examined bedside and on HD. Hemoglobin trended down from 8.4- 7.3. Afebrile in the last 24 hours. Patient's chart, labs, images were reviewed and discussed with RN 06/02: No acute events overnight. Patient saturating 100% on trach collar. Tmax 100.3. Yeast 1 of 4 bottles on blood cultures. Plan to remove central line and dialysis catheter. Family consideration for tunneled catheterization possibly hold. Micafungin was started per ID. 06/03: No acute events overnight. Left IJ placed by IR. Defer to ID for antibiotic management for cultures of the catheter tip and yeast. 06/04: No overnight events afebrile. Sedated on propofol and Precedex. On vent with tracheostomy PEEP 5 FiO2 40%. Being treated for fungemia and receiving TPN. Left IJ CVC functioning well. HD catheter right. 06/05: Afebrile. Still requiring minimal sedation on propofol and Precedex. Requiring vent support via trach PEEP five FiO2 40%. KUB with less gaseous distention. No BM but bowel sounds are audible. 06/06: Afebrile. On minimal sedation with propofol and Precedex and vent support via trach PEEP 5 FiO2 40%. Still in A. fib on telemetry. Catheter tip no growth to date sputum with Mariya. Repeat blood cultures no growth to date 06/07: Afebrile. On minimal sedation propofol and Precedex with for trach PEEP 5 FiO2 40%. He is to be in A. fib. Hb 6.9. Will transfuse with dialysis today. Did have stool smear overnight 06/08: Afebrile. On minimal sedation propofol Precedex tolerated pressure support yesterday back on AC PEEP 5 FiO2 40% use more alert trying to pull out his tracheostomy successfully disconnected himself from the vent. Not easily redirectable. Admits for safety. In A. fib. Labs pending 06/09: Vomited large amount of tube feeding overnight and NG attached to low suction. Remains in A. fib. Minimal sedation with propofol and Precedex. Tolerated pressure support back on AC FiO2 40% PEEP 5 getting dialysis currently. 06/11/2021: Patient seen and examined in the ICU. Mitts on for patient safety. Sedated with dexmedetomidine, propofol, and fentanyl. IV TPN hanging. NG tube r unning at 10 mL per hour. Currently on trach shield 10L. Discussed with RN. Chart reviewed. Vitals/I&O Vitals/I&O: Vital Signs Date Time Temp Pulse Resp B/P (MAP) Pulse Ox O2 Delivery O2 Flow Rate FiO2 06/17/21 11:53 Mechanical Ventilator 06/17/21 11:52 98.3 56 22 132/58 (82) 99 98.3 06/16/21 15:21 10.0 I & O 06/16/21 06/16/21 06/17/21 15:00 23:00 07:00 Intake Total 1245.4 ml 988 ml Output Total 40 ml 65 ml 305 ml Balance -40 ml 1180.4 ml 683 ml Physical Exam Physical Exam: GENERAL: awake and comfortable on vent HEENT: Normocephalic, atraumatic, redness and erythema of both eyes improved, NG tube present NECK: right dialysis catheter present clean,Lt neck central line changed ( 05/11) Trach + HEART: S1, S2.no gallop LUNGS: Decreased breath sounds. ABDOMEN: Less distended, bowel sounds present GENITOURINARY: Nieves in place. EXTREMITIES: Edema present. DERMATOLOGIC: Warm, dry, no generalized rash. NEUROLOGIC: Opens eyes PICC line clean General: Other (DROWSY) Heart: Regular rate, Normal S1, Normal S2, No murmurs, Gallops Lungs: Clear Abdomen: Normal bowel sounds, Other (ND) Extremities: Other (EDEMA) Skin: No rashes, No breakdown, No significant lesion Labs Labs: Laboratory Tests Test 06/16/21 18:06 06/16/21 20:57 06/17/21 00:01 06/17/21 05:24 Glucose (Fingerstick) 143 mg/dL (70-99) 169 mg/dL (70-99) 192 mg/dL (70-99) 194 mg/dL (70-99) Test 06/17/21 06:00 06/17/21 11:37 White Blood Count 13.4 x10^3/uL (4.0-11.0) Red Blood Count 2.87 x10^6/uL (4.30-5.70) Hemoglobin 8.1 g/dL (13.0-17.5) Hematocrit 24.6 % (39.0-53.0) Mean Corpuscular Volume 86 fL (79-100) Mean Corpuscular Hemoglobin 28 pg (25-35) Mean Corpuscular Hemoglobin Concent 33 g/dL (31-37) Red Cell Distribution Width 17.3 % (11.5-14.5) Platelet Count 290 x10^3/uL (140-400) Neutrophils (%) (Auto) 57 % (31-73) Lymphocytes (%) (Auto) 18 % (24-48) Monocytes (%) (Auto) 11 % (0-9) Eosinophils (%) (Auto) 14 % (0-3) Basophils (%) (Auto) 1 % (0-3) Neutrophils # (Auto) 7.6 x10^3/uL (1.8-7.7) Lymphocytes # (Auto) 2.4 x10^3/uL (1.0-4.8) Monocytes # (Auto) 1.4 x10^3/uL (0.0-1.1) Eosinophils # (Auto) 1.8 x10^3/uL (0.0-0.7) Basophils # (Auto) 0.2 x10^3/uL (0.0-0.2) Sodium Level 136 mmol/L (136-145) Potassium Level 3.8 mmol/L (3.5-5.1) Chloride Level 99 mmol/L (98-107) Carbon Dioxide Level 29 mmol/L (21-32) Anion Gap 8 (6-14) Blood Urea Nitrogen 30 mg/dL (8-26) Creatinine 2.3 mg/dL (0.7-1.3) Estimated GFR (Cockcroft-Gault) 33.8 Glucose Level 183 mg/dL (70-99) Calcium Level 8.3 mg/dL (8.5-10.1) Phosphorus Level 2.5 mg/dL (2.6-4.7) Magnesium Level 2.0 mg/dL (1.8-2.4) Triglycerides Level 124 mg/dL (0-150) Glucose (Fingerstick) 185 mg/dL (70-99) Assessment and Plan Assessmemt and Plan Problems Medical Problems: (1) Elevated troponin Status: Acute (2) Person under investigation for COVID-19 Status: Acute (3) Pulmonary edema Status: Acute Respiratory failure requiring intubation COVID-19 Acute MS A. fib SIRS Hypertension with hypertensive urgency Hyperlipidemia CKD Diabetes fungemia Persistent ileus History of bilateral subclavian stenosis History of marijuana use Severe protein calorie malnutrition Trach placed on May 15 Anemia secondary to acute blood loss, possible multiple lab draws and related to advanced CKD Positive yeast on 1 out of 4 bottles on blood cultures Plan: 1) ICU monitoring 2) Continue mechanical ventilation 3) Continue IV sedation with fentanyl propofol and Precedex 4) Appreciate subspecialty input (nephrology and pulmonary and infectious disease and GI are following) 5) Continue IV TPN 6) SCD for DVT prophylaxis 7) dialysis per nephrology 8) antibiotics and antifungals per infectious disease 9) as needed transfusions 10)Continue NG to low intermittent suction Trend labs Mitts for patient safety NG suctioning He might need PEG tube (continue TPN for now) I consulted general surgery again for possible PEG (await their input.) Prognosis guarded CC time 33 minutes Comment Review of Relevant I have reviewed the following items juanita (where applicable) has been applied. Medications: Current Medications Medications (Trade) Dose Ordered Sig/Jodie Route PRN Reason Start Time Stop Time Status Last Admin Dose Admin Sodium Chloride 80 meq/Potassium Chloride 20 meq/ Potassium Phosphate 13.6 mmol/Magnesium Sulfate 8 meq/ Multivitamins 5 ml/Zinc/Copper/ Manganese/ Selenium 1 ml/ Total Parenteral Nutrition/Amino Acids/Dextrose/ Fat Emulsion Intravenous 1,440 ml @ 60 mls/hr TPN CONT IV 06/16/21 22:00 06/17/21 21:59 06/16/21 21:53 Justifications for Admission General Conditions Altered mental status?: Yes Justification of admission: Patient has tachycardia (> 100 beats per minute) or hypotension (SBP < 90 mm Hg) leading to inadequate systemic perfusion as indicated by severe/persistent altered mental status. Other Justification ELENI RENTERIA III DO Jun 17, 2021 13:58
[2021-06-17] MEDS: ATORVASTATIN CALCIUM 40 MG TABLET. PO SCH (20:54)
[2021-06-17] MEDS: MONTELUKAST SODIUM 10 MG TABLET. PO SCH (20:54)
[2021-06-17] MEDS ORDERED: DEXTROSE 70% IV SCH (22:00)
[2021-06-17] MEDS ORDERED: TOTAL PARENTERAL NUTRITION IV SCH (22:00)
[2021-06-17] MEDS ORDERED: AMINO ACID IV SCH (22:00)
[2021-06-17] MEDS ORDERED: [UNRECOGNIZED DRUG - OTHER] IV SCH (22:00)
[2021-06-18] VITALS (24 sets, daily range): BP systolic 63–201; BP diastolic 36–102
[2021-06-18] MEDS: PROPOFOL 100 ML IV PRN ×3 (03:51→23:39)
[2021-06-18] MEDS: DEXMEDETOMIDINE 400 MCG in IV NORMAL SALINE 100ML 96 ML IV PRN ×4 (03:51→21:16)
[2021-06-18 05:06] LABS: BASO # 0.3 x10^3/uL (0.0-0.2); BASO % 2 % (0-3); EOS # 2.2 x10^3/uL (0.0-0.7); EOS % 17 % (0-3); HEMATOCRIT 27.5 % (39.0-53.0); LYMPH # 2.3 x10^3/uL (1.0-4.8); LYMPH % 18 % (24-48); MEAN CORPUSCULAR HEMOGLOBIN 28 pg (25-35); MEAN CORPUSCULAR HGB CONC 33 g/dL (31-37); MEAN CORPUSCULAR VOLUME 86 fL (79-100); MONO # 1.4 x10^3/uL (0.0-1.1); MONO % 11 % (0-9); NEUT % 53 % (31-73); PLATELET COUNT 323 x10^3/uL (140-400); RED BLOOD COUNT 3.21 x10^6/uL (4.30-5.70); RED CELL DISTRIBUTION WIDTH 17.3 % (11.5-14.5); WHITE BLOOD COUNT 13.3 x10^3/uL (4.0-11.0)
[2021-06-18 05:27] LABS: CALCIUM 8.5 mg/dL (8.5-10.1); CREATININE 2.6 mg/dL (0.7-1.3); GFR 29.3; MAGNESIUM 1.9 mg/dL (1.8-2.4); PHOSPHORUS 3.2 mg/dL (2.6-4.7); POTASSIUM 3.4 mmol/L (3.5-5.1)
[2021-06-18] MEDS: METOPROLOL IV PUSH 5 MG/5 ML VIAL. IVP SCH ×3 (06:00→17:53)
[2021-06-18] MEDS: INSULIN LISPRO 300 UNITS/3 ML VIAL. SQ SCH ×9 (06:23→23:40)
--- NOTE | 2021-06-18 07:51 | PDOC ---
[employer] PROGRESS NOTE Date of Service DOS: DATE: 06/18/21 TIME: 07:45 Chief Complaint Chief Complaint Respiratory failure requiring intubation COVID-19 Acute [place] A. fib SIRS Hypertension with hypertensive urgency Hyperlipidemia CKD Diabetes History of bilateral subclavian stenosis History of marijuana use Severe protein calorie malnutrition Trach placed on May 15 GI consulted for PEG evaluation --> patient with a lot of vomiting yesterday thus current NG tube to low intermittent suction Anemia secondary to acute blood loss, possible multiple lab draws and related to advanced CKD Positive Mariya on 1 out of 4 bottles on blood cultures History of Present Illness History of Present Illness 06/18/2021: Patient seen in ICU. Afebrile, on vent with FiO2 40%, PEEP 5. At this point his treatment is COVID-19 recovered. Continue treatment with daptomycin, cefepime, and micafungin, per ID. [facility]. Critical care 30 minutes reviewing labs, reviewing charts, reviewing imaging, discussion with RN. 06/17/2021 Patient seen and examined in the ICU Still mechanically ventilated AC/20/500/40/5 of PEEP with 100% saturation Currently has NG to suction (low intermittent suction) Sedated with fentanyl propofol and Precedex Has IV TPN hanging Has admit on his right hand SCDs in place Nieves to bedside drainage He remains critically ill 06/16/2021 Patient seen and examined in the ICU Discussed with RT Discussed with RN Chart reviewed Patient remains mechanically ventilated via tracheostomy AC/20/300/40 percent with 5 of PEEP Satting 98% Sedated with fentanyl Has TPN hanging Has IV microfungi and hanging He remains very critically ill 06/15/2021 Patient seen and examined in the ICU He remains on the vent via tracheostomy AC/20/500/40 percent with 5 of PEEP Setting in the mid 90s Has fentanyl and Precedex for sedation His hemoglobin is running low today at 6.7 I have ordered a unit of blood He is on IV TPN Discussed with RN Chart reviewed He remains critically ill 06/14/2021 patient seen and examined in the ICU chart reviewed discussed with RN he remains on the vent via tracheostomy vent settings as follows AC/20/500/40 percent with 5 of PEEP has mitts on for patient safety has SCDs on Nieves to bedside drainage sedated with fentanyl propofol and Precedex he remains critically ill 06/13/2021 Patient seen and examined in the ICU Chart reviewed Discussed with RN Vent settings as follows Spontaneous respirations with 40% FiO2 10 of pressure support Sedated with fentanyl propofol and Dex Has Nieves to bedside drainage Mitts for patient safety 06/12/2021 Patient seen and examined in the ICU He is currently on dialysis (dialysis nurse states we took 2 L off today and we plan to do daily dialysis for a few days per Dr. Ariza) Has trach shield in place Chart reviewed Discussed with RN He remains critically ill 06/10: Tolerating 30 cc every 3 hours tube feed with minimal residuals overnight. Remains in A. fib. Abdomen appears a bit more distended, soft. Minimally sedated propofol Precedex on [employer] FiO2 40% PEEP 5. CC time 31 min spent in reviewing chart, labs, and images. Discussed with RN and SW. Mr Cunha is a 75 yo male w/ PMHx CAD, HTN, Hyperlipidemia, subclavian steel syndrome, subclavian stenosis s/p left subclavian sent placement complicated by retroperitoneal hematoma s/p evacuation in 08/2015), asthma, BART, CKD, DM2 who presented from home with home health care noted that he was short of breath and valverde with O2 saturations less than 89% as low as 84% not improved with nasal cannulated oxygen placed on CPAP and brought to ED for further care. He was just discharged from the hospital a week ago on April 19, 2021 for abdominal pain and was going for further cardiac testing with outpatient stress testing scheduled on May 28, 2021. Had echocardiogram April 17, 2021 with normal-appearing EF with moderate concentric LVH no significant valvular abnormalities. WBC 20, Hb 10.7, platelets 268, NA 140, K3.8, BUN 21, CR 2.9, glucose 162, albumin 3, troponin I 1.372, NT proBNP 33,318. EKG appears sinus tachycardia rate of 105 bpm with multiple PACs small ST depressions in lead II and V5. TWI in V6. Chest radiograph with diffuse interstitial and alveolar opacities and ET tube 5. 8 cm above the leilani. Due to worsening respiratory status ED physician elected to intubate patient. Seen postintubation. Blood pressure little low after propofol bolus, but improved. Significant white frothy sputum per ET tube. Admitted to ICU for further care 04/25: On vent FiO2 50, PEEP 5. Febrile, T-max 103.3. Patient was initiated on cooling blankets. Procalcitonin 0.13. 04/26: COVID-19 positive. Febrile overnight that was managed with cooling blankets. On vent with FiO2 50%, PEEP 5. Per cardiology, elevated troponins likely secondary to demand ischemia; continue heparin drip per cardiology. Continue treatment with remdesivir, steroids, and antibiotics. 04/27: Afebrile. Vent with FiO2 50%, PEEP 5. Troponin 2.8 yesterday; probable type II, demand ischemia. New onset A. fib. Cont heparin gtt and prn digoxin, per cardiology. Contnue treatment with remdesivir, steroids, and prophylactic antibiotics. BG 323 this morning; will add basal insulin. 04/28: Afebrile. FiO2 50%, PEEP 5. Nontunneled HD catheter placed yesterday due to worsening kidney function; eGFR 16 (CKD4). Chest x-ray showed unchanged interstitial opacities. Continue empiric antibiotics, steroids, and remdesivir. Continue heparin infusion, for new dx A. fib. 04/29: Afebrile, remains on vent at FiO2 45%, PEEP 5. WBC 20.4. Hemodialysis per nephrology. We will continue treatment with empiric antibiotics, remde sivir, and steroids. Continue heparin infusion and supportive care. 04/30: Patient seen and examined in the [facility]- ICU. He remains on the vent. AC/20/500/40 5% with 5 PEEP. Currently on dialysis. Has OG feeds running. Has a Nieves to bedside drainage. Sedated with propofol and fentanyl. He remains critically ill 05/01: Patient seen and examined in the [facility]- ICU. He is still intubated. AC/20/500/40 percent with 5 of PEEP. In A. fib. Sedated with propofol fentanyl and Versed. Has a heparin drip 05/02: Patient seen and examined in the [facility]- ICU. He is sedated with propofol fentanyl and Versed. AC/20/500/40 percent with 5 of PEEP. He remains critically ill 05/03: Patient seen and examined in the [facility]- ICU. He is still intubated. AC/20/500/70 percent with 5 of PEEP. Sedated with fentanyl Versed and propofol. Remains critically ill 05/04: Patient seen and examined in the [place] [address] ICU. Still intubated. Sedated with propofol and fentanyl. AC/20/500/70 percent with 5 of PEEP. On dialysis currently 05/05: Patient seen and examined in the [place] [address] ICU. He remains on the vent. AC/20/500/40 percent with 5 of PEEP. He remains critically ill 05/06: Patient seen and examined in the [place] [address] ICU. He remains mechanically ventilated. AC/20/500/40 05/07: Patient seen and examined in the [place] [address] ICU. He remains mechanically ventilated. ILDA on CKD - ATN 2/ sepsis/ Hypotension,UOP good,on IV Lasix ; requiring dialysis, . AC/20/500/40 percent with 5 of PEEP. Sedated with propofol Dex and fentanyl 05/08: Currently on 40%, 5 of PEEP. now on cardene gtt. Patient seen and examined in the [place] [address] ICU. 05/09: VENT [id number]%, 5 of PEEP. Mild pulmonary edema with new small right pleural effusion and basilar opacities. Change central line and send cath tip for cultures. 05/10: VENT [id number]%, 5 of PEEP. Mild pulmonary edema with new small right pleural effusion and basilar opacities. Patient seen and examined in the [place] [id number] ICU 05/11: Continue iv cefepime , add zyvox, sputum culture 05/12: Continue iv cefepime , add zyvox, sputum culture. VENT [id number]%, 5 of PEEP. now on cardene gtt prn 05/13: Did not tolerate sedation vacation 05/11/2021, profoundly hypertensive. ABG/ CXR--changes as needed. Continue iv cefepime , add zyvox, sputum culture. VENT [id number]%, 5 of PEEP. Mild pulmonary edema with new small right pleural effusion and basilar opacities. now on cardene gtt prn 05/14: Patient seen and examined at bedside. Remains intubated and sedated planning for tracheostomy tomorrow. Continue current respiratory support; continue antibiotics, continue sedation. Follow recommendations of pulmonary, renal, and infectious disease 05/15: Patient seen and examined at bedside. Remains intubated and sedated planning for tracheostomy today. Continue current respiratory support; continue antibiotics, continue sedation. 05/16: Patient seen and examined at bedside. Underwent tracheostomy yesterday today tolerated well. When seen this morning patient is still notably sedated respiratory status is stable. measures. 05/17: Patient seen and examined at bedside. Attempting to wean sedation. Patient with some diarrhea. Per infectious disease will give erythromycin eye ointment for eye lesions. Nephro and pulm also following. 05/18: Patient seen and examined at bedside. Attempting to increase tube feeds, GI consulted for PEG evaluation. Otherwise no major clinical changes. Continue to wean sedation. Plan of care discussed with bedside nurse. 05/19: Patient seen and examined at bedside. Apparently had a fair bit of vomiting overnight. GI following for PEG evaluation. Otherwise patient remained stable. Plan of care discussed with bedside nurse. 05/20: Patient seen and examined at bedside. Again had multiple bouts of vomiting yesterday. GI continuing to follow for PEG evaluation although on hold right now due to persistent vomiting. Leukocytosis 05/21: Afebrile, no acute events overnight. Remains on vent, FiO2 40%, PEEP 5. S/P tracheostomy on 05/15/2021. KUB on 05/19/2021 consistent with ileus. Per GI, continue NG tube to suction and parenteral nutrition for now. Continue IV antibiotics, per ID. Continue hemodialysis 05/22: Afebrile. On vent with FiO2 40%, PEEP 5. Excessive NG output. Continue NG tube to suction for now; PEG on hold for now. Continue hemodialysis, per nephrology. Continue IV antibiotics, per ID. 05/23: Afebrile. Vent with FiO2 40%, PEEP 5. NG tube for 635 mL out overnight. Continue NG tube to suction. HD 05/24: No acute events overnight. Afebrile. NG tube output has decreased. Kidney function appears stable. Continue IV antibiotics, per ID. Patient has been accepted to [facility], pending insurance authorization. 05/25: Afebrile. On vent with FiO2 40%, PEEP 5. Hemoglobin 8.6 yesterday, hemoglobin 7.3 today. Reportedly had HD yesterday. Continue IV antibiotics, per ID; WBC possibly reactive to ileus. Has been accepted at [facility]; transfer pending, but will need PEG tube placement prior. 05/26: Afebrile. On vent with FiO2 40%, PEEP 5. Hemoglobin 7.3 yesterday, and hemoglobin 7.2 today; continue to trend. Leukocytosis slightly improved, WBC 12.9 today. Has been accepted at [facility]; transfer pending, but will need PEG tube placement prior. 05/27: Afebrile. On vent with FiO2 40%, PEEP 5. Hemoglobin remains stable at 7.2 today; continue to trend. WBC 13.4. Kidney function appears to be stabilized. LTAC transfer is pending PEG tube placement. Off meropenem; will continue to monitor. Kidney function appears to be stable. 05/28: No acute events overnight. Patient doing well on trach with settings of 40% FiO2 and PEEP of 8. Pending PEG placement after ileus is resolved will defer this to GI for timing of PEG placement.. Also pending tunneled catheter placement for dialysis. 05/29: No acute events or night. Patient tolerating trach collar humidified. Saturating at 99%. Pending PICC line placement and IJ central line removal. Per ID. Possibly in not needing HD. Making urine adequately with Lasix as needed. 05/30: No acute events overnight. Patient doing well on trach collar. Hemoglobin decreased down to 6.7 pending 1 unit PRBC transfusion. Restarted on linezolid and Flagyl and cefepime. Pending PICC placement and central line IJ removal. 05/31: No acute events overnight. Patient saturating 100% on trach collar. Hemoglobin improved after 1 unit PRBC transfusion to 8.4. Patient is currently undergoing dialysis and his labs have been stable. Patient's chart, labs, images were reviewed and discussed with RN 06/01: No acute events overnight. Patient saturating well on trach collar. Patient seen and examined bedside and on HD. Hemoglobin trended down from 8.4- 7.3. Afebrile in the last 24 hours. Patient's chart, labs, images were reviewed and discussed with RN 06/02: No acute events overnight. Patient saturating 100% on trach collar. Tmax 100.3. Yeast 1 of 4 bottles on blood cultures. Plan to remove central line and dialysis catheter. Family consideration for tunneled catheterization possibly hold. Micafungin was started per ID. 06/03: No acute events overnight. Left IJ placed by IR. Defer to ID for antibiotic management for cultures of the catheter tip and yeast. 06/04: No overnight events afebrile. Sedated on propofol and Precedex. On vent with tracheostomy PEEP 5 FiO2 40%. Being treated for fungemia and receiving TPN. Left IJ CVC functioning well. HD catheter right. 06/05: Afebrile. Still requiring minimal sedation on propofol and Precedex. Requiring vent support via trach PEEP five FiO2 40%. KUB with less gaseous distention. No BM but bowel sounds are audible. 06/06: Afebrile. On minimal sedation with propofol and Precedex and vent support via trach PEEP 5 FiO2 40%. Still in A. fib on telemetry. Catheter tip no growth to date sputum with Mariya. Repeat blood cultures no growth to date 06/07: Afebrile. On minimal sedation propofol and Precedex with for trach PEEP 5 FiO2 40%. He is to be in A. fib. Hb 6.9. Will transfuse with dialysis today. Did have stool smear overnight 06/08: Afebrile. On minimal sedation propofol Precedex tolerated pressure support yesterday back on AC PEEP 5 FiO2 40% use more alert trying to pull out his tracheostomy successfully disconnected himself from the vent. Not easily redirectable. Admits for safety. In A. fib. Labs pending 06/09: Vomited large amount of tube feeding overnight and NG attached to low suction. Remains in A. fib. Minimal sedation with propofol and Precedex. Tolerated pressure support back on AC FiO2 40% PEEP 5 getting dialysis currently. 06/11/2021: Patient seen and examined in the ICU. Mitts on for patient safety. Sedated with dexmedetomidine, propofol, and fentanyl. IV TPN hanging. NG tube running at 10 mL per hour. Currently on trach shield 10L. Discussed with RN. Chart reviewed. Vitals/I&O Vitals/I&O: Vital Signs Date Time Temp Pulse Resp B/P (MAP) Pulse Ox O2 Delivery O2 Flow Rate FiO2 06/18/21 07:29 97 Ventilator 06/18/21 06:00 48 176/70 06/18/21 05:00 20 06/18/21 04:00 98.5 98.5 06/17/21 19:28 10.0 I & O 06/17/21 06/17/21 06/18/21 15:00 23:00 07:00 Intake Total 100 ml 1198 ml 1027 ml Output Total 20 ml 125 ml 175 ml Balance 80 ml 1073 ml 852 ml Physical Exam Physical Exam: GENERAL: awake and comfortable on vent HEENT: Normocephalic, atraumatic, redness and erythema of both eyes improved, NG tube present NECK: right dialysis catheter present clean,Lt neck central line changed ( 05/11) Trach + HEART: S1, S2.no gallop LUNGS: Decreased breath sounds. ABDOMEN: Less distended, bowel sounds present GENITOURINARY: Nieves in place. EXTREMITIES: Edema present. DERMATOLOGIC: Warm, dry, no generalized rash. NEUROLOGIC: Opens eyes PICC line clean General: Other (DROWSY) Heart: Regular rate, Normal S1, Normal S2, No murmurs, Gallops Lungs: Clear Abdomen: Normal bowel sounds, Other (ND) Extremities: Other (EDEMA) Skin: No rashes, No breakdown, No significant lesion Labs Labs: Laboratory Tests Test 06/17/21 11:37 06/17/21 17:24 06/17/21 23:58 06/18/21 04:50 Glucose (Fingerstick) 185 mg/dL (70-99) 160 mg/dL (70-99) 225 mg/dL (70-99) White Blood Count 13.3 x10^3/uL (4.0-11.0) Red Blood Count 3.21 x10^6/uL (4.30-5.70) Hemoglobin 9.0 g/dL (13.0-17.5) Hematocrit 27.5 % (39.0-53.0) Mean Corpuscular Volume 86 fL (79-100) Mean Corpuscular Hemoglobin 28 pg (25-35) Mean Corpuscular Hemoglobin Concent 33 g/dL (31-37) Red Cell Distribution Width 17.3 % (11.5-14.5) Platelet Count 323 x10^3/uL (140-400) Neutrophils (%) (Auto) 53 % (31-73) Lymphocytes (%) (Auto) 18 % (24-48) Monocytes (%) (Auto) 11 % (0-9) Eosinophils (%) (Auto) 17 % (0-3) Basophils (%) (Auto) 2 % (0-3) Neutrophils # (Auto) 7.0 x10^3/uL (1.8-7.7) Lymphocytes # (Auto) 2.3 x10^3/uL (1.0-4.8) Monocytes # (Auto) 1.4 x10^3/uL (0.0-1.1) Eosinophils # (Auto) 2.2 x10^3/uL (0.0-0.7) Basophils # (Auto) 0.3 x10^3/uL (0.0-0.2) Sodium Level 136 mmol/L (136-145) Potassium Level 3.4 mmol/L (3.5-5.1) Chloride Level 101 mmol/L (98-107) Carbon Dioxide Level 26 mmol/L (21-32) Anion Gap 9 (6-14) Blood Urea Nitrogen 47 mg/dL (8-26) Creatinine 2.6 mg/dL (0.7-1.3) Estimated GFR (Cockcroft-Gault) 29.3 Glucose Level 181 mg/dL (70-99) Calcium Level 8.5 mg/dL (8.5-10.1) Phosphorus Level 3.2 mg/dL (2.6-4.7) Magnesium Level 1.9 mg/dL (1.8-2.4) Assessment and Plan Assessmemt and Plan Problems Medical Problems: (1) Elevated troponin Status: Acute (2) Person under investigation for COVID-19 Status: Acute (3) Pulmonary edema Status: Acute Comment Review of Relevant I have reviewed the following items juanita (where applicable) has been applied. Medications: Current Medications Medications (Trade) Dose Ordered Sig/Jodie Route PRN Reason Start Time Stop Time Status Last Admin Dose Admin Sodium Chloride 80 meq/Potassium Chloride 20 meq/ Potassium Phosphate 15 mmol/ Magnesium Sulfate 8 meq/ Multivitamins 5 ml/Zinc/Copper/ Manganese/ Selenium 1 ml/ Total Parenteral Nutrition/Amino Acids/Dextrose/ Fat Emulsion Intravenous 1,440 ml @ 60 mls/hr TPN CONT IV 06/17/21 22:00 06/18/21 21:59 06/17/21 22:11 Justifications for Admission General Conditions Altered mental status?: Yes Justification of admission: Patient has tachycardia (> 100 beats per minute) or hypotension (SBP < 90 mm Hg) leading to inadequate systemic perfusion as indicated by severe/persistent altered mental status. Other Justification SARAH BETH ARREOLA MD Jun 18, 2021 07:51
--- NOTE | 2021-06-18 07:51 | PDOC ---
Infectious Disease Note Subjective Subjective Patient is awake on ventilator ROS ROS No nausea vomiting diarrhea Vital Sign Vital Signs Vital Signs Date Time Temp Pulse Resp B/P (MAP) Pulse Ox O2 Delivery O2 Flow Rate FiO2 06/18/21 07:29 97 Ventilator 06/18/21 06:00 48 176/70 06/18/21 05:00 20 06/18/21 04:00 98.5 98.5 06/17/21 19:28 10.0 Physical Exam PHYSICAL EXAM GENERAL: awake and comfortable on vent HEENT: Normocephalic, atraumatic, redness and erythema of both eyes improved, NG tube present NECK: right dialysis catheter present clean,Lt neck central line changed ( 05/11) Trach + HEART: S1, S2.no gallop LUNGS: Decreased breath sounds. ABDOMEN: Less distended, bowel sounds present GENITOURINARY: Nieves in place. EXTREMITIES: Edema present. DERMATOLOGIC: Warm, dry, no generalized rash. NEUROLOGIC: Opens eyes PICC line clean Labs Lab Laboratory Tests Test 06/17/21 11:37 06/17/21 17:24 06/17/21 23:58 06/18/21 04:50 Glucose (Fingerstick) 185 mg/dL (70-99) 160 mg/dL (70-99) 225 mg/dL (70-99) White Blood Count 13.3 x10^3/uL (4.0-11.0) Red Blood Count 3.21 x10^6/uL (4.30-5.70) Hemoglobin 9.0 g/dL (13.0-17.5) Hematocrit 27.5 % (39.0-53.0) Mean Corpuscular Volume 86 fL (79-100) Mean Corpuscular Hemoglobin 28 pg (25-35) Mean Corpuscular Hemoglobin Concent 33 g/dL (31-37) Red Cell Distribution Width 17.3 % (11.5-14.5) Platelet Count 323 x10^3/uL (140-400) Neutrophils (%) (Auto) 53 % (31-73) Lymphocytes (%) (Auto) 18 % (24-48) Monocytes (%) (Auto) 11 % (0-9) Eosinophils (%) (Auto) 17 % (0-3) Basophils (%) (Auto) 2 % (0-3) Neutrophils # (Auto) 7.0 x10^3/uL (1.8-7.7) Lymphocytes # (Auto) 2.3 x10^3/uL (1.0-4.8) Monocytes # (Auto) 1.4 x10^3/uL (0.0-1.1) Eosinophils # (Auto) 2.2 x10^3/uL (0.0-0.7) Basophils # (Auto) 0.3 x10^3/uL (0.0-0.2) Sodium Level 136 mmol/L (136-145) Potassium Level 3.4 mmol/L (3.5-5.1) Chloride Level 101 mmol/L (98-107) Carbon Dioxide Level 26 mmol/L (21-32) Anion Gap 9 (6-14) Blood Urea Nitrogen 47 mg/dL (8-26) Creatinine 2.6 mg/dL (0.7-1.3) Estimated GFR (Cockcroft-Gault) 29.3 Glucose Level 181 mg/dL (70-99) Calcium Level 8.5 mg/dL (8.5-10.1) Phosphorus Level 3.2 mg/dL (2.6-4.7) Magnesium Level 1.9 mg/dL (1.8-2.4) Micro BLOOD CULTURE LC Final Final FINAL ID= [MANDI PARAPSILOSIS] NO FURTHER WORKUP MANDI PARAPSILOSIS Unless otherwise specified, Testing Performed by: [address] [id number] For Inquires, the Physician may contact the Microbiology department at [phone] Objective Assessment Fungemia May 30, 2021, C parapsilosis, 06/02 neg RT IJ central line removed cath tip sent for cult 1. Febrile illness resolved 2. Leukocytosis, was on steroids,ileus could contribute,improving 3. COVID-19 pneumonia. 4. Acute hypoxic respiratory failure status post intubation.Now S/P Trach 8/10 Pleural effusion 5. Congestive heart failure, acute on chronic. 6. Acute kidney injury on chronic kidney disease on hemodialysis. 7. Diabetes mellitus 2. 8. Atrial fibrillation. 9. Anemia. 10. Protein-calorie malnutrition. 11. Hypertention 12.Hyponatremia 13. Ileus, Bowel obstruction Peg TF on hold, OG to LIS 14.on PPN 15.Mild to Moderate Pleural effusion 16.Lt eye conjunctivitis resolved Plan Plan of Care Reculture blood so far negative Cont Cefepime Dapto and micafungin Change all the lines if not done already Monitor labs and cultures Remains critically ill Continue supportive care Prognosis very poor Discussed with nursing staff JAD RIVERO MD Jun 18, 2021 07:51
[2021-06-18] MEDS: ASPIRIN CHEWABLE 81 MG TABLET. PO SCH (08:00)
[2021-06-18] MEDS: PANTOPRAZOLE IV PUSH 40 MG VIAL. IVP SCH (08:59)
[2021-06-18] MEDS: MICAFUNGIN 100 MG in IV DEXTROSE 5% 100ML 100 ML IV SCH (09:00)
[2021-06-18] MEDS: CEFEPIME HCL IV Push 1 GM VIAL. IVP SCH (09:00)
[2021-06-18] MEDS: INSULIN GLARGINE SYRINGE. SQ SCH ×2 (09:01→21:16)
--- NOTE | 2021-06-18 09:22 | PDOC ---
DATE OF SERVICE DATE: 06/18/21 TIME: 09:15 SUBJECTIVE ROS Patient is awake on ventilator OBJECTIVE Vital Signs Vital Signs Date Time Temp Pulse Resp B/P (MAP) Pulse Ox O2 Delivery O2 Flow Rate FiO2 06/18/21 07:29 97 Ventilator 06/18/21 06:00 48 176/70 06/18/21 05:00 20 06/18/21 04:00 98.5 98.5 06/17/21 19:28 10.0 I & 0 Intake and Output 06/18/21 07:00 Intake Total 2325 ml Output Total 320 ml Balance 2005 ml IV Total 2325 ml Output Urine Total 320 ml PHYSICAL EXAM Physical Exam GENERAL: awake on vent HEENT: NG tube present NECK: right dialysis catheter present , Trach + HEART: S1, S2.no gallop LUNGS: Decreased breath sounds. ABDOMEN: bowel sounds present GENITOURINARY: Nieves in place. EXTREMITIES: trace edema DERMATOLOGIC: no generalized rash. NEUROLOGIC: Opens eyes DIAGNOSIS/ASSESSMENT Assessment & Plan ILDA-ATN- requiring dialysis; , Oliguric , Dialysis today. Discussed treatment plan with cartridge feeder Fungemia-on antifungal per ID HypoNatremia- Resolved HypoKalemia - replace CKD stage 3 Acute Hypoxic Resp failure - S/P Trach COVID 19 Pneumonia Anemia - Hgb stable COMMENT/RELEVANT DATA Meds Current Medications Medications (Trade) Dose Ordered Sig/Jodie Start Time Stop Time Status Last Admin Dose Admin Acetaminophen (Tylenol Supp) 650 mg PRN Q6HRS PRN 05/29/21 16:15 06/17/21 08:12 650 MG Acetaminophen (Tylenol) 650 mg PRN Q6HRS PRN 04/24/21 14:00 Cancel Albumin Human 200 ml @ 200 mls/hr 1X PRN PRN 06/16/21 16:45 06/16/21 22:44 DC Amiodarone HCl (Cordarone) 200 mg DAILY 04/28/21 09:00 05/22/21 16:27 DC 05/21/21 11:07 200 MG Amiodarone HCl 150 mg/Dextrose 103 ml @ 618 mls/hr 1X ONCE 04/27/21 02:30 04/27/21 02:39 DC 04/27/21 02:30 618 MLS/HR Amiodarone HCl 450 mg/Dextrose 259 ml @ 0 mls/hr 1X ONCE 05/22/21 16:30 05/22/21 16:34 DC 05/22/21 16:59 33 MLS/HR Amlodipine Besylate (Norvasc) 10 mg DAILY 05/16/21 09:00 06/15/21 09:53 10 MG Aspirin (Aspirin Chewable) 81 mg DAILYWBKFT 05/03/21 10:00 06/15/21 09:54 81 MG Aspirin (Ecotrin) 81 mg DAILYWBKFT 04/25/21 08:00 05/03/21 09:56 DC 05/02/21 07:20 81 MG Atorvastatin Calcium (Lipitor) 80 mg QHS 04/24/21 21:00 06/17/21 20:54 80 MG Bisacodyl (Dulcolax Supp) 10 mg 1X ONCE 06/04/21 16:30 06/04/21 16:31 DC 06/04/21 17:56 10 MG Bupivacaine HCl/ Epinephrine Bitart (Sensorcain-Epi 0.5%-1:[id number] Mpf) 30 ml STK-MED ONCE 05/15/21 07:05 05/15/21 07:06 DC Carvedilol (Coreg) 3.125 mg BIDWMEALS 04/24/21 17:00 04/25/21 15:42 DC 04/25/21 09:23 3.125 MG Cefepime HCl (Maxipime) 1 gm DAILY 06/15/21 09:30 06/18/21 09:00 1 GM Cellulose (Surgicel Fibrillar 1x2) 1 each STK-MED ONCE 05/15/21 07:05 05/15/21 07:06 DC 05/15/21 09:40 1 EACH Chlorhexidine Gluconate (Peridex) 15 ml BID 04/24/21 21:00 04/25/21 11:19 DC 04/24/21 20:49 15 ML Daptomycin 600 mg/ Sodium Chloride 50 ml @ 100 mls/hr Q48H 05/04/21 15:00 05/06/21 08:07 DC 05/04/21 15:24 100 MLS/HR Daptomycin 620 mg/ Sodium Chloride 50 ml @ 100 mls/hr Q48H 06/15/21 11:00 06/17/21 11:35 100 MLS/HR Dexamethasone Sodium Phosphate (Decadron) 4 mg STK-MED ONCE 05/15/21 07:53 05/15/21 07:53 DC Dexmedetomidine HCl 400 mcg/ Sodium Chloride 100 ml @ 0 mls/hr CONT PRN 05/04/21 10:30 06/18/21 08:57 19.7 MLS/HR Dextrose (Dextrose 50%-Water Syringe) 12.5 gm PRN Q15MIN PRN 06/09/21 16:30 UNV Digoxin (Lanoxin) 250 mcg 1X ONCE 04/26/21 13:00 04/26/21 13:05 DC 04/26/21 15:02 250 MCG Ephedrine Sulfate (ePHEDrine PF IN SALINE SYRINGE) 50 mg STK-MED ONCE 05/15/21 09:15 05/15/21 09:15 DC Erythromycin (Romycin) 0.25 inch BID 05/17/21 12:00 05/25/21 13:24 DC 05/25/21 07:43 0.25 INCH Etomidate (Amidate) 20 mg STK-MED ONCE 04/24/21 13:38 04/24/21 13:38 DC Fentanyl Citrate 30 ml @ 0 mls/hr CONT PRN 04/24/21 14:00 06/18/21 05:55 2.5 MLS/HR Fentanyl Citrate (Fentanyl 2ml Vial) 25 mcg PRN Q1HR PRN 04/24/21 14:00 05/17/21 16:12 25 MCG Fluconazole/ Sodium Chloride 100 ml @ 100 mls/hr Q24H 06/05/21 09:00 06/15/21 08:53 DC 06/14/21 10:36 100 MLS/HR Furosemide (Lasix) 80 mg TID 05/27/21 09:00 06/01/21 11:08 DC 05/31/21 20:10 80 MG Heparin Sodium (Porcine) (Heparin Sodium) 5,000 unit Q8HRS 05/18/21 10:00 05/30/21 11:07 DC 05/30/21 06:07 5,000 UNIT Heparin Sodium/ Dextrose 250 ml @ 0 mls/hr CONT PRN 04/24/21 16:45 05/01/21 12:32 DC 05/01/21 05:10 10 MLS/HR Hydralazine HCl (Apresoline Inj) 10 mg PRN QID PRN 05/22/21 16:30 06/11/21 21:08 10 MG Hydralazine HCl (Apresoline) 25 mg QID 05/10/21 10:00 05/22/21 16:27 DC 05/21/21 17:24 25 MG Info (Anti-Coagulation Monitoring By Pharmacy) 1 each PRN DAILY PRN 04/25/21 13:00 05/02/21 07:36 DC 04/26/21 08:51 1 EACH Info (PHARMACY MONITORING -- do not chart) 1 each PRN DAILY PRN 06/16/21 16:45 Info (Tpn Per Pharmacy) 1 each PRN DAILY PRN 05/22/21 10:00 06/17/21 08:32 1 EACH Insulin Glargine (Lantus Syringe) 20 unit BID 05/31/21 09:00 06/18/21 09:01 20 UNIT Insulin Human Lispro (HumaLOG) 3 units Q6HRS 06/09/21 18:00 06/18/21 06:24 3 UNITS Labetalol HCl (Normodyne Iv Push) 20 mg PRN Q2HR PRN 05/01/21 12:30 05/27/21 15:43 20 MG Lidocaine HCl (Buffered Lidocaine 1%) 6 ml 1X ONCE 06/04/21 09:30 06/04/21 09:31 DC 06/04/21 09:34 2 ML Lidocaine HCl (Lidocaine Pf 2% Vial) 5 ml STK-MED ONCE 05/15/21 07:53 05/15/21 07:53 DC Linezolid/Dextrose 300 ml @ 300 mls/hr Q12HR 05/31/21 09:00 UNV Lorazepam (Ativan Inj) 0.25 mg PRN Q4HRS PRN 05/21/21 09:00 06/02/21 04:30 0.25 MG Magnesium Sulfate 50 ml @ 25 mls/hr 1X ONCE 06/02/21 08:45 06/02/21 10:44 DC 06/02/21 09:53 25 MLS/HR Meropenem 500 mg/ Sodium Chloride 50 ml @ 100 mls/hr DAILY 05/23/21 09:00 05/25/21 11:55 DC 05/25/21 07:42 100 MLS/HR Methylnaltrexone [place] (Relistor) 12 mg 1X ONCE 06/10/21 12:00 06/10/21 12:01 DC 06/10/21 13:02 12 MG Metoprolol Tartrate (Lopressor Vial) 5 mg Q6HRS 04/25/21 18:00 06/17/21 05:32 5 MG Metronidazole 100 ml @ 100 mls/hr Q12HR 05/30/21 09:00 06/05/21 07:34 DC 06/04/21 20:32 100 MLS/HR Micafungin Sodium 100 mg/Dextrose 100 ml @ 100 mls/hr Q24H 06/15/21 10:00 06/18/21 09:00 100 MLS/HR Midazolam HCl (Versed) 5 mg 1X ONCE 05/24/21 15:15 05/24/21 15:16 DC 05/24/21 15:20 5 MG Montelukast Sodium (Singulair) 10 mg HS 04/24/21 21:00 06/17/21 20:54 10 MG Multi-Ingred Cream/Lotion/Oil/ Oint (Artificial Tears Eye Ointment) 1 danielito PRN Q1HR PRN 05/07/21 16:00 05/10/21 20:51 1 DANIELITO Nicardipine HCl 50 mg/Sodium Chloride 250 ml @ 25 mls/hr CONT PRN 05/06/21 18:45 05/20/21 19:47 37.5 MLS/HR Norepinephrine Bitartrate 8 mg/ Dextrose 258 ml @ 25.852 mls/ hr CONT PRN 05/02/21 21:00 05/09/21 06:10 DC 05/02/21 21:22 25.852 MLS/HR Nystatin (Nystop) 1 danielito BID 05/16/21 21:00 06/17/21 20:55 1 DANIELITO Ondansetron HCl (Zofran) 4 mg STK-MED ONCE 05/15/21 07:53 05/15/21 07:53 DC Pantoprazole Sodium (PROTONIX VIAL for IV PUSH) 40 mg DAILYAC 04/26/21 09:30 06/18/21 08:59 40 MG Phenylephrine HCl (PHENYLEPHRINE in 0.9% NACL PF) 1 mg STK-MED ONCE 05/15/21 07:51 05/15/21 07:51 DC Potassium Bicarbonate (Potassium Effervescent Tablet) 40 meq 1X ONCE 05/19/21 08:30 05/19/21 08:31 DC 05/19/21 08:50 40 MEQ Potassium Chloride/Water 100 ml @ 100 mls/hr Q1H 05/23/21 10:45 05/23/21 12:44 DC 05/23/21 13:17 100 MLS/HR Potassium Phosphate 10 mmol/ Sodium Chloride 103.3333 ml @ 51.667 m... Q2H 06/01/21 12:00 06/01/21 15:59 DC 06/01/21 13:24 51.667 MLS/HR Potassium Phosphate 13.6 mmol/Sodium Chloride 254.5333 ml @ 127.... 1X ONCE 06/08/21 14:00 06/08/21 15:59 DC 06/08/21 15:21 127.267 MLS/HR Potassium Phosphate 20 mmol/ Sodium Chloride 256.6667 ml @ 62.5 mls/hr 1X ONCE 05/13/21 12:15 05/13/21 16:21 UNV Potassium Phosphate 30 mmol/ Sodium Chloride 260 ml @ 62.5 mls/hr 1X ONCE 05/13/21 12:15 05/13/21 16:24 UNV Prochlorperazine Edisylate (Compazine) 5 mg PACU PRN PRN 05/15/21 06:00 05/16/21 05:59 DC Propofol 100 ml @ 4.185 mls/ hr CONT PRN 06/02/21 09:30 06/18/21 03:51 12.555 MLS/HR Propofol (Diprivan) 200 mg STK-MED ONCE 05/15/21 07:53 05/15/21 07:53 DC Remdesivir 100 mg/ Sodium Chloride 230 ml @ 460 mls/hr Q24H 04/26/21 17:30 04/29/21 17:59 DC 04/29/21 13:51 460 MLS/HR Remdesivir 200 mg/ Sodium Chloride 210 ml @ 210 mls/hr 1X ONCE 04/25/21 17:30 04/25/21 18:29 DC 04/25/21 17:09 210 MLS/HR Ringer's Solution 1,000 ml @ 30 mls/hr Q24H 05/15/21 06:00 05/15/21 17:59 DC 05/15/21 07:04 30 MLS/HR Rocuronium [place] (Zemuron) 50 mg STK-MED ONCE 05/15/21 07:06 05/15/21 07:07 DC Sodium Bicarbonate (Sodium Bicarb Adult 8.4% Syr) 50 meq 1X ONCE 04/27/21 09:45 04/27/21 09:46 DC 04/27/21 09:50 50 MEQ Sodium Chloride (Normal Saline Flush) 10 ml 1X PRN PRN 06/15/21 10:15 06/16/21 10:14 DC Sodium Chloride 80 meq/Potassium Chloride 10 meq/ Potassium Phosphate 10 mmol/ Magnesium Sulfate 8 meq/ Multivitamins 5 ml/Zinc/Copper/ Manganese/ Selenium 1 ml/ Total Parenteral Nutrition/Amino Acids/Dextrose/ Fat Emulsion Intravenous 1,440 ml @ 60 mls/hr TPN CONT 06/13/21 22:00 06/14/21 21:59 DC 06/13/21 22:00 60 MLS/HR Sodium Chloride 80 meq/Potassium Chloride 20 meq/ Potassium Phosphate 13.6 mmol/Magnesium Sulfate 8 meq/ Multivitamins 5 ml/Zinc/Copper/ Manganese/ Selenium 1 ml/ Total Parenteral Nutrition/Amino Acids/Dextrose/ Fat Emulsion Intravenous 1,440 ml @ 60 mls/hr TPN CONT 06/16/21 22:00 06/17/21 21:59 DC 06/16/21 21:53 60 MLS/HR Sodium Chloride 80 meq/Potassium Chloride 20 meq/ Potassium Phosphate 15 mmol/ Magnesium Sulfate 8 meq/ Multivitamins 5 ml/Zinc/Copper/ Manganese/ Selenium 1 ml/ Total Parenteral Nutrition/Amino Acids/Dextrose/ Fat Emulsion Intravenous 1,440 ml @ 60 mls/hr TPN CONT 06/17/21 22:00 06/18/21 21:59 06/17/21 22:11 60 MLS/HR Sodium Chloride 80 meq/Potassium Chloride 30 meq/ Potassium Phosphate 10 mmol/ Magnesium Sulfate 8 meq/ Multivitamins 5 ml/Zinc/Copper/ Manganese/ Selenium 1 ml/ Total Parenteral Nutrition/Amino Acids/Dextrose/ Fat Emulsion Intravenous 1,440 ml @ 60 mls/hr TPN CONT 06/12/21 22:00 06/13/21 21:59 DC 06/12/21 21:56 60 MLS/HR Sodium Chloride 90 meq/Potassium Chloride 25 meq/ Magnesium Sulfate 10 meq/Calcium Gluconate 5 meq/ Multivitamins 5 ml/Zinc/Copper/ Manganese/ Selenium 1 ml/ Total Parenteral Nutrition/Amino Acids/Dextrose/ Fat Emulsion Intravenous 1,080 ml @ 45 mls/hr TPN CONT 05/22/21 22:00 05/23/21 21:59 DC 05/22/21 21:22 45 MLS/HR Sodium Chloride 90 meq/Potassium Chloride 30 meq/ Potassium Phosphate 13.6 mmol/Magnesium Sulfate 10 meq/ Multivitamins 5 ml/Zinc/Copper/ Manganese/ Selenium 1 ml/ Total Parenteral Nutrition/Amino Acids/Dextrose/ Fat Emulsion Intravenous 1,200 ml @ 50 mls/hr TPN CONT 06/01/21 22:00 06/02/21 21:59 DC 06/01/21 21:33 50 MLS/HR Sodium Chloride 90 meq/Potassium Chloride 30 meq/ Potassium Phosphate 13.6 mmol/Magnesium Sulfate 12 meq/ Multivitamins 5 ml/Zinc/Copper/ Manganese/ Selenium 1 ml/ Total Parenteral Nutrition/Amino Acids/Dextrose 1,200 ml @ 50 mls/hr TPN CONT 06/07/21 22:00 06/08/21 21:59 DC 06/07/21 22:16 50 MLS/HR Sodium Chloride 90 meq/Potassium Chloride 30 meq/ Potassium Phosphate 13.6 mmol/Magnesium Sulfate 12 meq/ Multivitamins 5 ml/Zinc/Copper/ Manganese/ Selenium 1 ml/ Total Parenteral Nutrition/Amino Acids/Dextrose/ Fat Emulsion Intravenous 1,440 ml @ 60 mls/hr TPN CONT 06/11/21 22:00 06/12/21 21:59 DC 06/11/21 22:13 60 MLS/HR Sodium Chloride 90 meq/Potassium Chloride 50 meq/ Magnesium Sulfate 10 meq/Calcium Gluconate 5 meq/ Multivitamins 5 ml/Zinc/Copper/ Manganese/ Selenium 1 ml/ Total Parenteral Nutrition/Amino Acids/Dextrose/ Fat Emulsion Intravenous 960 ml @ 40 mls/hr TPN CONT 05/27/21 22:00 05/28/21 21:59 DC 05/27/21 22:03 40 MLS/HR Sodium Chloride 90 meq/Potassium Chloride 50 meq/ Potassium Phosphate 5 mmol/ Magnesium Sulfate 10 meq/Calcium Gluconate 5 meq/ Multivitamins 5 ml/Zinc/Copper/ Manganese/ Selenium 1 ml/ Total Parenteral Nutrition/Amino Acids/Dextrose/ Fat Emulsion Intravenous 1,200 ml @ 50 mls/hr TPN CONT 05/30/21 22:00 05/31/21 21:59 DC 05/30/21 21:57 50 MLS/HR Sodium Phosphate 15 mmol/Dextrose 105 ml @ 105 mls/hr 1X ONCE 05/29/21 11:00 05/29/21 11:59 DC 05/29/21 11:53 105 MLS/HR Sodium Phosphate 15 mmol/Sodium Chloride 105 ml @ 105 mls/hr 1X ONCE 05/29/21 11:45 05/29/21 12:44 UNV Succinylcholine Chloride (Anectine) 200 mg STK-MED ONCE 04/24/21 13:38 04/24/21 13:38 DC Vecuronium [place] (Norcuron Bolus) 6 mg PRN Q6HRS PRN 04/30/21 11:15 05/14/21 09:12 6 MG Lab Laboratory Tests Test 06/17/21 11:37 06/17/21 17:24 06/17/21 23:58 06/18/21 04:50 Glucose (Fingerstick) 185 mg/dL (70-99) 160 mg/dL (70-99) 225 mg/dL (70-99) White Blood Count 13.3 x10^3/uL (4.0-11.0) Red Blood Count 3.21 x10^6/uL (4.30-5.70) Hemoglobin 9.0 g/dL (13.0-17.5) Hematocrit 27.5 % (39.0-53.0) Mean Corpuscular Volume 86 fL (79-100) Mean Corpuscular Hemoglobin 28 pg (25-35) Mean Corpuscular Hemoglobin Concent 33 g/dL (31-37) Red Cell Distribution Width 17.3 % (11.5-14.5) Platelet Count 323 x10^3/uL (140-400) Neutrophils (%) (Auto) 53 % (31-73) Lymphocytes (%) (Auto) 18 % (24-48) Monocytes (%) (Auto) 11 % (0-9) Eosinophils (%) (Auto) 17 % (0-3) Basophils (%) (Auto) 2 % (0-3) Neutrophils # (Auto) 7.0 x10^3/uL (1.8-7.7) Lymphocytes # (Auto) 2.3 x10^3/uL (1.0-4.8) Monocytes # (Auto) 1.4 x10^3/uL (0.0-1.1) Eosinophils # (Auto) 2.2 x10^3/uL (0.0-0.7) Basophils # (Auto) 0.3 x10^3/uL (0.0-0.2) Sodium Level 136 mmol/L (136-145) Potassium Level 3.4 mmol/L (3.5-5.1) Chloride Level 101 mmol/L (98-107) Carbon Dioxide Level 26 mmol/L (21-32) Anion Gap 9 (6-14) Blood Urea Nitrogen 47 mg/dL (8-26) Creatinine 2.6 mg/dL (0.7-1.3) Estimated GFR (Cockcroft-Gault) 29.3 Glucose Level 181 mg/dL (70-99) Calcium Level 8.5 mg/dL (8.5-10.1) Phosphorus Level 3.2 mg/dL (2.6-4.7) Magnesium Level 1.9 mg/dL (1.8-2.4) Results All relevant outside records, renal labs, imaging studies, telemetry/EKG's were reviewed. Justicifation of Admission Dx: Justifications for Admission: Justification of Admission Dx: Yes Aspiration Pneumonia: Hemodynamic Instability JASMEET LAM MD Jun 18, 2021 09:22
--- NOTE | 2021-06-18 09:54 | PDOC ---
SURGICAL PROGRESS NOTE DATE: 06/18/21 TIME: 09:52 Subjective Asked to reevaluate pt regarding surgically placed G-tube. Pt awake on vent, but not alert NGT in with clear aspirate. Vital Signs Vital Signs Date Time Temp Pulse Resp B/P (MAP) Pulse Ox O2 Delivery O2 Flow Rate FiO2 06/18/21 07:29 97 Ventilator 06/18/21 06:00 48 176/70 06/18/21 05:00 20 06/18/21 04:00 98.5 98.5 06/17/21 19:28 10.0 I&O Intake and Output 06/18/21 07:00 Intake Total 2325 ml Output Total 320 ml Balance 2005 ml IV Total 2325 ml Output Urine Total 320 ml General: Alert, No acute distress HEENT: Other (trach in place) Abdomen: Soft, No tenderness, Other (obese) Labs Laboratory Tests Test 06/16/21 11:07 06/16/21 12:43 06/16/21 18:06 06/16/21 20:57 Glucose (Fingerstick) 141 mg/dL (70-99) 140 mg/dL (70-99) 143 mg/dL (70-99) 169 mg/dL (70-99) Test 06/17/21 00:01 06/17/21 05:24 06/17/21 06:00 06/17/21 11:37 Glucose (Fingerstick) 192 mg/dL (70-99) 194 mg/dL (70-99) 185 mg/dL (70-99) White Blood Count 13.4 x10^3/uL (4.0-11.0) Red Blood Count 2.87 x10^6/uL (4.30-5.70) Hemoglobin 8.1 g/dL (13.0-17.5) Hematocrit 24.6 % (39.0-53.0) Mean Corpuscular Volume 86 fL (79-100) Mean Corpuscular Hemoglobin 28 pg (25-35) Mean Corpuscular Hemoglobin Concent 33 g/dL (31-37) Red Cell Distribution Width 17.3 % (11.5-14.5) Platelet Count 290 x10^3/uL (140-400) Neutrophils (%) (Auto) 57 % (31-73) Lymphocytes (%) (Auto) 18 % (24-48) Monocytes (%) (Auto) 11 % (0-9) Eosinophils (%) (Auto) 14 % (0-3) Basophils (%) (Auto) 1 % (0-3) Neutrophils # (Auto) 7.6 x10^3/uL (1.8-7.7) Lymphocytes # (Auto) 2.4 x10^3/uL (1.0-4.8) Monocytes # (Auto) 1.4 x10^3/uL (0.0-1.1) Eosinophils # (Auto) 1.8 x10^3/uL (0.0-0.7) Basophils # (Auto) 0.2 x10^3/uL (0.0-0.2) Sodium Level 136 mmol/L (136-145) Potassium Level 3.8 mmol/L (3.5-5.1) Chloride Level 99 mmol/L (98-107) Carbon Dioxide Level 29 mmol/L (21-32) Anion Gap 8 (6-14) Blood Urea Nitrogen 30 mg/dL (8-26) Creatinine 2.3 mg/dL (0.7-1.3) Estimated GFR (Cockcroft-Gault) 33.8 Glucose Level 183 mg/dL (70-99) Calcium Level 8.3 mg/dL (8.5-10.1) Phosphorus Level 2.5 mg/dL (2.6-4.7) Magnesium Level 2.0 mg/dL (1.8-2.4) Triglycerides Level 124 mg/dL (0-150) Test 06/17/21 17:24 06/17/21 23:58 06/18/21 04:50 Glucose (Fingerstick) 160 mg/dL (70-99) 225 mg/dL (70-99) White Blood Count 13.3 x10^3/uL (4.0-11.0) Red Blood Count 3.21 x10^6/uL (4.30-5.70) Hemoglobin 9.0 g/dL (13.0-17.5) Hematocrit 27.5 % (39.0-53.0) Mean Corpuscular Volume 86 fL (79-100) Mean Corpuscular Hemoglobin 28 pg (25-35) Mean Corpuscular Hemoglobin Concent 33 g/dL (31-37) Red Cell Distribution Width 17.3 % (11.5-14.5) Platelet Count 323 x10^3/uL (140-400) Neutrophils (%) (Auto) 53 % (31-73) Lymphocytes (%) (Auto) 18 % (24-48) Monocytes (%) (Auto) 11 % (0-9) Eosinophils (%) (Auto) 17 % (0-3) Basophils (%) (Auto) 2 % (0-3) Neutrophils # (Auto) 7.0 x10^3/uL (1.8-7.7) Lymphocytes # (Auto) 2.3 x10^3/uL (1.0-4.8) Monocytes # (Auto) 1.4 x10^3/uL (0.0-1.1) Eosinophils # (Auto) 2.2 x10^3/uL (0.0-0.7) Basophils # (Auto) 0.3 x10^3/uL (0.0-0.2) Sodium Level 136 mmol/L (136-145) Potassium Level 3.4 mmol/L (3.5-5.1) Chloride Level 101 mmol/L (98-107) Carbon Dioxide Level 26 mmol/L (21-32) Anion Gap 9 (6-14) Blood Urea Nitrogen 47 mg/dL (8-26) Creatinine 2.6 mg/dL (0.7-1.3) Estimated GFR (Cockcroft-Gault) 29.3 Glucose Level 181 mg/dL (70-99) Calcium Level 8.5 mg/dL (8.5-10.1) Phosphorus Level 3.2 mg/dL (2.6-4.7) Magnesium Level 1.9 mg/dL (1.8-2.4) Laboratory Tests Test 06/17/21 11:37 06/17/21 17:24 06/17/21 23:58 06/18/21 04:50 Glucose (Fingerstick) 185 mg/dL (70-99) 160 mg/dL (70-99) 225 mg/dL (70-99) White Blood Count 13.3 x10^3/uL (4.0-11.0) Red Blood Count 3.21 x10^6/uL (4.30-5.70) Hemoglobin 9.0 g/dL (13.0-17.5) Hematocrit 27.5 % (39.0-53.0) Mean Corpuscular Volume 86 fL (79-100) Mean Corpuscular Hemoglobin 28 pg (25-35) Mean Corpuscular Hemoglobin Concent 33 g/dL (31-37) Red Cell Distribution Width 17.3 % (11.5-14.5) Platelet Count 323 x10^3/uL (140-400) Neutrophils (%) (Auto) 53 % (31-73) Lymphocytes (%) (Auto) 18 % (24-48) Monocytes (%) (Auto) 11 % (0-9) Eosinophils (%) (Auto) 17 % (0-3) Basophils (%) (Auto) 2 % (0-3) Neutrophils # (Auto) 7.0 x10^3/uL (1.8-7.7) Lymphocytes # (Auto) 2.3 x10^3/uL (1.0-4.8) Monocytes # (Auto) 1.4 x10^3/uL (0.0-1.1) Eosinophils # (Auto) 2.2 x10^3/uL (0.0-0.7) Basophils # (Auto) 0.3 x10^3/uL (0.0-0.2) Sodium Level 136 mmol/L (136-145) Potassium Level 3.4 mmol/L (3.5-5.1) Chloride Level 101 mmol/L (98-107) Carbon Dioxide Level 26 mmol/L (21-32) Anion Gap 9 (6-14) Blood Urea Nitrogen 47 mg/dL (8-26) Creatinine 2.6 mg/dL (0.7-1.3) Estimated GFR (Cockcroft-Gault) 29.3 Glucose Level 181 mg/dL (70-99) Calcium Level 8.5 mg/dL (8.5-10.1) Phosphorus Level 3.2 mg/dL (2.6-4.7) Magnesium Level 1.9 mg/dL (1.8-2.4) Problem List Problems Medical Problems: (1) Elevated troponin Status: Acute (2) Person under investigation for COVID-19 Status: Acute (3) Pulmonary edema Status: Acute Assessment/Plan ileus would cont NGT at this time. defer to GI regarding PEG. Would favor PEG over surgical G-tube, but would consider if GI suggests. Justicifation of Admission Dx: Justifications for Admission: Justification of Admission Dx: Yes Aspiration Pneumonia: Hemodynamic Instability TIO CARSON MD Jun 18, 2021 09:54
--- NOTE | 2021-06-18 10:04 | PDOC ---
PULMONARY PROGRESS NOTES DATE: 06/18/21 TIME: 10:01 Subjective remains on vent support on AC mode Vitals Vital Signs Date Time Temp Pulse Resp B/P (MAP) Pulse Ox O2 Delivery O2 Flow Rate FiO2 06/18/21 07:29 97 Ventilator 06/18/21 06:00 48 176/70 06/18/21 05:00 20 06/18/21 04:00 98.5 98.5 06/17/21 19:28 10.0 Comments Tracheostomy ros unable to obtain General: Alert Lungs: Clear Cardiovascular: S1, S2 Abdomen: Soft, Other (Nontender) Extremities: Other (1+ edema) Skin: Warm Labs Laboratory Tests Test 06/16/21 11:07 06/16/21 12:43 06/16/21 18:06 06/16/21 20:57 Glucose (Fingerstick) 141 mg/dL (70-99) 140 mg/dL (70-99) 143 mg/dL (70-99) 169 mg/dL (70-99) Test 06/17/21 00:01 06/17/21 05:24 06/17/21 06:00 06/17/21 11:37 Glucose (Fingerstick) 192 mg/dL (70-99) 194 mg/dL (70-99) 185 mg/dL (70-99) White Blood Count 13.4 x10^3/uL (4.0-11.0) Red Blood Count 2.87 x10^6/uL (4.30-5.70) Hemoglobin 8.1 g/dL (13.0-17.5) Hematocrit 24.6 % (39.0-53.0) Mean Corpuscular Volume 86 fL (79-100) Mean Corpuscular Hemoglobin 28 pg (25-35) Mean Corpuscular Hemoglobin Concent 33 g/dL (31-37) Red Cell Distribution Width 17.3 % (11.5-14.5) Platelet Count 290 x10^3/uL (140-400) Neutrophils (%) (Auto) 57 % (31-73) Lymphocytes (%) (Auto) 18 % (24-48) Monocytes (%) (Auto) 11 % (0-9) Eosinophils (%) (Auto) 14 % (0-3) Basophils (%) (Auto) 1 % (0-3) Neutrophils # (Auto) 7.6 x10^3/uL (1.8-7.7) Lymphocytes # (Auto) 2.4 x10^3/uL (1.0-4.8) Monocytes # (Auto) 1.4 x10^3/uL (0.0-1.1) Eosinophils # (Auto) 1.8 x10^3/uL (0.0-0.7) Basophils # (Auto) 0.2 x10^3/uL (0.0-0.2) Sodium Level 136 mmol/L (136-145) Potassium Level 3.8 mmol/L (3.5-5.1) Chloride Level 99 mmol/L (98-107) Carbon Dioxide Level 29 mmol/L (21-32) Anion Gap 8 (6-14) Blood Urea Nitrogen 30 mg/dL (8-26) Creatinine 2.3 mg/dL (0.7-1.3) Estimated GFR (Cockcroft-Gault) 33.8 Glucose Level 183 mg/dL (70-99) Calcium Level 8.3 mg/dL (8.5-10.1) Phosphorus Level 2.5 mg/dL (2.6-4.7) Magnesium Level 2.0 mg/dL (1.8-2.4) Triglycerides Level 124 mg/dL (0-150) Test 06/17/21 17:24 06/17/21 23:58 06/18/21 04:50 Glucose (Fingerstick) 160 mg/dL (70-99) 225 mg/dL (70-99) White Blood Count 13.3 x10^3/uL (4.0-11.0) Red Blood Count 3.21 x10^6/uL (4.30-5.70) Hemoglobin 9.0 g/dL (13.0-17.5) Hematocrit 27.5 % (39.0-53.0) Mean Corpuscular Volume 86 fL (79-100) Mean Corpuscular Hemoglobin 28 pg (25-35) Mean Corpuscular Hemoglobin Concent 33 g/dL (31-37) Red Cell Distribution Width 17.3 % (11.5-14.5) Platelet Count 323 x10^3/uL (140-400) Neutrophils (%) (Auto) 53 % (31-73) Lymphocytes (%) (Auto) 18 % (24-48) Monocytes (%) (Auto) 11 % (0-9) Eosinophils (%) (Auto) 17 % (0-3) Basophils (%) (Auto) 2 % (0-3) Neutrophils # (Auto) 7.0 x10^3/uL (1.8-7.7) Lymphocytes # (Auto) 2.3 x10^3/uL (1.0-4.8) Monocytes # (Auto) 1.4 x10^3/uL (0.0-1.1) Eosinophils # (Auto) 2.2 x10^3/uL (0.0-0.7) Basophils # (Auto) 0.3 x10^3/uL (0.0-0.2) Sodium Level 136 mmol/L (136-145) Potassium Level 3.4 mmol/L (3.5-5.1) Chloride Level 101 mmol/L (98-107) Carbon Dioxide Level 26 mmol/L (21-32) Anion Gap 9 (6-14) Blood Urea Nitrogen 47 mg/dL (8-26) Creatinine 2.6 mg/dL (0.7-1.3) Estimated GFR (Cockcroft-Gault) 29.3 Glucose Level 181 mg/dL (70-99) Calcium Level 8.5 mg/dL (8.5-10.1) Phosphorus Level 3.2 mg/dL (2.6-4.7) Magnesium Level 1.9 mg/dL (1.8-2.4) Laboratory Tests Test 06/17/21 11:37 06/17/21 17:24 06/17/21 23:58 06/18/21 04:50 Glucose (Fingerstick) 185 mg/dL (70-99) 160 mg/dL (70-99) 225 mg/dL (70-99) White Blood Count 13.3 x10^3/uL (4.0-11.0) Red Blood Count 3.21 x10^6/uL (4.30-5.70) Hemoglobin 9.0 g/dL (13.0-17.5) Hematocrit 27.5 % (39.0-53.0) Mean Corpuscular Volume 86 fL (79-100) Mean Corpuscular Hemoglobin 28 pg (25-35) Mean Corpuscular Hemoglobin Concent 33 g/dL (31-37) Red Cell Distribution Width 17.3 % (11.5-14.5) Platelet Count 323 x10^3/uL (140-400) Neutrophils (%) (Auto) 53 % (31-73) Lymphocytes (%) (Auto) 18 % (24-48) Monocytes (%) (Auto) 11 % (0-9) Eosinophils (%) (Auto) 17 % (0-3) Basophils (%) (Auto) 2 % (0-3) Neutrophils # (Auto) 7.0 x10^3/uL (1.8-7.7) Lymphocytes # (Auto) 2.3 x10^3/uL (1.0-4.8) Monocytes # (Auto) 1.4 x10^3/uL (0.0-1.1) Eosinophils # (Auto) 2.2 x10^3/uL (0.0-0.7) Basophils # (Auto) 0.3 x10^3/uL (0.0-0.2) Sodium Level 136 mmol/L (136-145) Potassium Level 3.4 mmol/L (3.5-5.1) Chloride Level 101 mmol/L (98-107) Carbon Dioxide Level 26 mmol/L (21-32) Anion Gap 9 (6-14) Blood Urea Nitrogen 47 mg/dL (8-26) Creatinine 2.6 mg/dL (0.7-1.3) Estimated GFR (Cockcroft-Gault) 29.3 Glucose Level 181 mg/dL (70-99) Calcium Level 8.5 mg/dL (8.5-10.1) Phosphorus Level 3.2 mg/dL (2.6-4.7) Magnesium Level 1.9 mg/dL (1.8-2.4) Medications Active Scripts Medications Dose Route/Sig Max Daily Dose Days Date Category Glyburide 2.5 Mg Tablet 1 Tab PO DAILY 04/19/21 Rx Polyethylene Glycol 3350 17 Gm Powd.pack 17 Gm PO DAILY 04/19/21 Rx Dok (Docusate Sodium) 100 Mg Capsule 100 Mg PO PRN DAILY PRN 30 04/19/21 Rx Bisacodyl 5 Mg Tablet.dr 5 Mg PO PRN DAILY PRN 04/19/21 Rx Acetaminophen 325 Mg Tablet 650 Mg PO PRN Q4HRS PRN 14 04/19/21 Rx Aspirin Ec (Aspirin) 81 Mg Tablet. 81 Mg PO DAILYWBKFT 30 04/19/21 Rx Hydralazine Hcl 25 Mg Tablet 25 Mg PO QID 30 04/19/21 Rx Fenofibrate 54 Mg Tablet 1 Tab PO DAILY 04/17/21 Reported Potassium Chloride (Potassium Chloride) 20 Meq Tablet.er 20 Meq PO DAILY 04/17/21 Reported Coreg (Carvedilol) 12.5 Mg Tablet 37.5 Mg PO BIDWMEALS 04/17/21 Reported Rosuvastatin Calcium 40 Mg Tablet 40 Mg PO QHS 04/17/21 Reported Gabapentin (Gabapentin) 100 Mg Capsule 200 Mg PO BID 04/17/21 Reported Montelukast Sodium Tablet (Montelukast Sodium) 10 Mg Tablet 10 Mg PO HS 04/17/21 Reported Protonix (Pantoprazole Sodium) 20 Mg Tablet.dr 2 Tab PO DAILY 04/17/21 Reported Amlodipine Besylate 5 Mg Tablet 5 Mg PO DAILY 04/17/21 Reported Furosemide 40 Mg Tablet 1 Tab PO DAILY 04/17/21 Reported Proair Hfa Inhaler (Albuterol Sulfate) 8.5 Gm Hfa.aer.ad 2 Puff IH PRN Q4-6HRS PRN 21 04/16/21 Reported Advair 100-50 Diskus (Fluticasone/Salmeterol) 1 Each Disk.w.dev 1 Puff IH BID 04/16/21 Reported Comments Impression . IMPRESSION: 1. Acute hypoxic respiratory failure, multifactorial/COVID-19 viral pneumonia/ARDS, ongoing, intubated 04/25/2021, now status post tracheostomy 05/15/[address] chest with bilateral diffuse interstitial infiltrates without any significant pleural effusion 3. Leukocytosis, sepsis 4. Non-ST segment elevation HI 5. History of tobacco use, suspect COPD, unknown FEV1 6. Chronic kidney disease.== HD as needed per renal 7. Metabolic acidosis multifactorial, improved 8. Abnormal chest x-ray, compatible with ARDS CHF 9. Hypoglycemia, continue to monitor 10. Hypotension multifactorial 11. Fever-- 12. Anemia- 13. Atrial fibrillation with rapid ventricular response, currently rate controlled 14. Ileus 15. Type 2 diabetes 16. A. fib 17. Fever secondary to fungemia, resolved Plan . Updated 06/18/21 Continue current vent support. Will skip CPAP trial and consider trach shield trial. Follow ID recs --Fungemia Follow nephrology recs Follow GI recs -- illeus. PEG continues to be on hold. DVT/GI PPX D/W RN and RT [facility] has denied patient Patient has been very difficult to wean due to multifactorial etiologies includi ng arrhythmias, increased respiratory rate, poor control of blood pressure during trials. We will reach out to the family to discuss goals of care. We will try trach shield today Pt. is DNR Updated 06/17/21 Continue current vent support. We will try CPAP again today. Follow ID recs -- ongoing fever/Fungemia Follow nephrology recs Follow GI recs -- anemia on labs today/ illeus DVT/GI PPX D/W RN and RT [facility] has denied patient Patient has been very difficult to wean due to multifactorial etiologies including arrhythmias, increased respiratory rate, poor control of blood pressure during trials. We will reach out to the family to discuss goals of care. We will try CPAP again today. Pt. is DNR Updated 06/16/21 Continue current vent support Follow ID recs -- ongoing fever/Fungemia Follow nephrology recs Follow GI recs -- anemia on labs today/ illeus DVT/GI PPX D/W RN and RT [facility] has denied patient Patient has been very difficult to wean due to multifactorial etiologies including arrhythmias, increased respiratory rate, poor control of blood pressure during trials. We will reach out to the family to discuss goals of care. Pt. is DNR JONES FISHMAN MD Jun 18, 2021 10:04
--- NOTE | 2021-06-18 10:18 | PDOC ---
Date of Service: DATE: 06/18/21 TIME: 10:14 Objective: Objective: 275 cc from NG charted, no stools. SS note 06/15: SS following up with discharge planning. SS reviewed pt chart and discussed with pt RN. Pt is currently on the vent at 40%. COVID19 recovered. Pt on TPN, Propofol, and Precedex. Pt on IV Micafungin, IV Daptomycin, and IV Cefepime. Trach in place. Pt accepted at [facility], ; fax [phone], pending insurance authorization. SS phoned and faxed clinical updates to [facility] today. P2P completed with physician and [employer] denying until PEG can be placed. SS discussed with physician. Consult for surgery placed for assessment. Appeal process started for insurance. Pt's RN notified. SS will continue to follow for discharge planning. Vital Signs: Vital Signs Date Time Temp Pulse Resp B/P (MAP) Pulse Ox O2 Delivery O2 Flow Rate FiO2 06/18/21 07:29 97 Ventilator 06/18/21 06:00 48 176/70 06/18/21 05:00 20 06/18/21 04:00 98.5 98.5 06/17/21 19:28 10.0 Labs: Laboratory Tests Test 06/17/21 11:37 06/17/21 17:24 06/17/21 23:58 06/18/21 04:50 Glucose (Fingerstick) 185 mg/dL 160 mg/dL 225 mg/dL White Blood Count 13.3 x10^3/uL Red Blood Count 3.21 x10^6/uL Hemoglobin 9.0 g/dL Hematocrit 27.5 % Mean Corpuscular Volume 86 fL Mean Corpuscular Hemoglobin 28 pg Mean Corpuscular Hemoglobin Concent 33 g/dL Red Cell Distribution Width 17.3 % Platelet Count 323 x10^3/uL Neutrophils (%) (Auto) 53 % Lymphocytes (%) (Auto) 18 % Monocytes (%) (Auto) 11 % Eosinophils (%) (Auto) 17 % Basophils (%) (Auto) 2 % Neutrophils # (Auto) 7.0 x10^3/uL Lymphocytes # (Auto) 2.3 x10^3/uL Monocytes # (Auto) 1.4 x10^3/uL Eosinophils # (Auto) 2.2 x10^3/uL Basophils # (Auto) 0.3 x10^3/uL Sodium Level 136 mmol/L Potassium Level 3.4 mmol/L Chloride Level 101 mmol/L Carbon Dioxide Level 26 mmol/L Anion Gap 9 Blood Urea Nitrogen 47 mg/dL Creatinine 2.6 mg/dL Estimated GFR (Cockcroft-Gault) 29.3 Glucose Level 181 mg/dL Calcium Level 8.5 mg/dL Phosphorus Level 3.2 mg/dL Magnesium Level 1.9 mg/dL GRAM STAIN Final Final ND Not Tested AEROBIC CULTURE Final Final No Growth on 06/16/21 at 1050 No Growth on 06/17/21 at 0729 No Growth on 06/18/21 at 0831 BLOOD CULTURE Preliminary NO GROWTH AFTER 2 DAYS PE: GEN: chronically ill LUNGS: trach/vent HEART: RRR ABD: softer than last week, quiet, brownish output in NG canister (about 300cc) NEURO/PSYCH: opens eyes during exam A/P: COVID-19 s/p trach, ileus -- Difficult situation as above, not a good PEG candidate. Justicifation of Admission Dx: Justifications for Admission: Justification of Admission Dx: Yes Aspiration Pneumonia: Hemodynamic Instability TAIWO THEODORE Jun 18, 2021 10:18
[2021-06-18] MEDS: TPN PER PHARMACY MC PRN (10:57)
--- NOTE | 2021-06-18 10:57 | NUR ---
Pharmacy TPN Dosing Note S: NILAM LAN is a 75 year old M Currently receiving Central Continuous TPN started 05/22/21 B:Pertinent PMH: ILEUS Height: 6 feet, 2 inches Weight: 138.8 kg Current diet: NPO LABS: Sodium: 136 Potassium: 3.4 Chloride: 101 Calcium: 8.5 Corrected Calcium: 10.34 Magnesium: 1.9 CO2: 26 SCr: 2.6 Glucose: 181 Albumin: 1.7 AST: 31 ALT: 26 TPN FORMULA: TPN TYPE: Central Continuous AMINO ACIDS: 110 gm DEXTROSE: 295 gm SODIUM CHLORIDE: 80 mEq POTASSIUM CHLORIDE: 30 mEq POTASSIUM PHOSPHATE: 15 mmol MAGNESIUM: 8 mEq MULTIPLE VITAMIN: 5 ml TRACE ELEMENTS: 1 ml(s) TPN PLAN: Propofol increased further, will remove lipids from TPN for now. KCl 3.4 - increase KCl to 30 meq. -BMP in AM. R: Change TPN as noted above. Will monitor electrolytes, glucose, and tolerance to TPN. ANAYA LYNN RPH, 06/18/21 [id number]
[2021-06-18] MEDS: NYSTATIN TOPICAL POWDER 15GM BOTTLE. TP SCH ×2 (12:49→21:16)
[2021-06-18] MEDS ORDERED: 0.9 % SODIUM CHLORIDE 10 ML DISP.SYRIN. IV PRN ×2 (15:00)
[2021-06-18] MEDS ORDERED: IV NORMAL SALINE 1000ML BAG 1,000 ML IV PRN ×2 (15:00)
[2021-06-18] MEDS ORDERED: DIALYSIS PATIENT. MC PRN ×2 (15:00)
[2021-06-18] MEDS ORDERED: ALBUMIN HUMAN 25% 200 ML IV PRN (15:00)
--- NOTE | 2021-06-18 15:15 | NUR ---
SS following up with discharge planning. SS reviewed pt chart and discussed with pt RN. Pt is currently on the vent at 40%. COVID19 recovered. Pt on TPN, Propofol, and Precedex. Pt on IV Micafungin, IV Daptomycin, and IV Cefepime. Trach in place. Pt accepted at [facility], ; fax [phone], pending insurance authorization. Insurance denied pt for LTACH on 06/15/2021. Appeal in process. Clinical updates phoned and faxed to [facility]. SS will continue to follow for discharge planning.
[2021-06-18] MEDS: MONTELUKAST SODIUM 10 MG TABLET. PO SCH (21:15)
[2021-06-18] MEDS: ATORVASTATIN CALCIUM 40 MG TABLET. PO SCH (21:15)
[2021-06-18] MEDS ORDERED: AMINO ACID IV SCH (22:00)
[2021-06-18] MEDS ORDERED: [UNRECOGNIZED DRUG - OTHER] IV SCH (22:00)
[2021-06-18] MEDS ORDERED: DEXTROSE 70% IV SCH (22:00)
[2021-06-18] MEDS ORDERED: TOTAL PARENTERAL NUTRITION IV SCH (22:00)
[2021-06-19] VITALS (24 sets, daily range): BP systolic 103–193; BP diastolic 47–103
[2021-06-19] MEDS: METOPROLOL IV PUSH 5 MG/5 ML VIAL. IVP SCH ×4 (00:20→17:46)
[2021-06-19] MEDS: DEXMEDETOMIDINE 400 MCG in IV NORMAL SALINE 100ML 96 ML IV PRN ×6 (02:44→22:29)
[2021-06-19] MEDS: INSULIN LISPRO 300 UNITS/3 ML VIAL. SQ SCH ×6 (06:14→17:52)
--- NOTE | 2021-06-19 06:34 | PDOC ---
[employer] PROGRESS NOTE Date of Service DOS: DATE: 06/19/21 TIME: 06:23 Chief Complaint Chief Complaint Respiratory failure requiring intubation COVID-19 Acute MS A. fib SIRS Hypertension with hypertensive urgency Hyperlipidemia CKD Diabetes History of bilateral subclavian stenosis History of marijuana use Severe protein calorie malnutrition Trach placed on May 15 GI consulted for PEG evaluation --> patient with a lot of vomiting yesterday thus current NG tube to low intermittent suction Anemia secondary to acute blood loss, possible multiple lab draws and related to advanced CKD Ileus Positive Mariya on 1 out of 4 bottles on blood cultures History of Present Illness History of Present Illness 06/19/2021: Afebrile, no acute ins overnight. On vent with FiO2 40%, PEEP 5. Patient has been accepted at [facility] pending insurance authorization, however [employer] denying until PEG can be placed. Appeal process has been started as currently patient is poor PEG tube candidate. Still not stooling still with high NG output, 400 mL overnight. General surgery consulted and will defer to GI regarding PEG; favor PEG or surgical G-tube. Will continue to follow nephrology and GI recommendations. Continue daptomycin, cefepime, and micafungin, per ID. Critical care time 30 min spent reviewing charts, reviewing imaging, reviewing labs, and discussion with RN. 06/18/2021: Patient seen in ICU. Afebrile, on vent with FiO2 40%, PEEP 5. At this point his treatment is COVID-19 recovered. Continue treatment with daptomycin, cefepime, and micafungin, per ID. Patient has been accepted to [facility], pending insurance authorization. Critical care 30 minutes reviewing labs, reviewing charts, reviewing imaging, discussion with RN. 06/17/2021 Patient seen and examined in the ICU Still mechanically ventilated AC/20/500/40/5 of PEEP with 100% saturation Currently has NG to suction (low intermittent suction) Sedated with fentanyl propofol and Precedex Has IV TPN hanging Has admit on his right hand SCDs in place Nieves to bedside drainage He remains critically ill 06/16/2021 Patient seen and examined in the ICU Discussed with RT Discussed with RN Chart reviewed Patient remains mechanically ventilated via tracheostomy AC/20/300/40 percent with 5 of PEEP Satting 98% Sedated with fentanyl Has TPN hanging Has IV microfungi and hanging He remains very critically ill 06/15/2021 Patient seen and examined in the ICU He remains on the vent via tracheostomy AC/20/500/40 percent with 5 of PEEP Setting in the mid Has fentanyl and Precedex for sedation His hemoglobin is running low today at 6.7 I have ordered a unit of blood He is on IV TPN Discussed with RN Chart reviewed He remains critically ill 06/14/2021 patient seen and examined in the ICU chart reviewed discussed with RN he remains on the vent via tracheostomy vent settings as follows AC/20/500/40 percent with 5 of PEEP has mitts on for patient safety has SCDs on Nieves to bedside drainage sedated with fentanyl propofol and Precedex he remains critically ill 06/13/2021 Patient seen and examined in the ICU Chart reviewed Discussed with RN Vent settings as follows Spontaneous respirations with 40% FiO2 10 of pressure support Sedated with fentanyl propofol and Dex Has Nieves to bedside drainage Mitts for patient safety 06/12/2021 Patient seen and examined in the ICU He is currently on dialysis (dialysis nurse states we took 2 L off today and we plan to do daily dialysis for a few days per Dr. Ariza) Has trach shield in place Chart reviewed Discussed with RN He remains critically ill 06/10: Tolerating 30 cc every 3 hours tube feed with minimal residuals overnight. Remains in A. fib. Abdomen appears a bit more distended, soft. Minimally sedated propofol Precedex on [employer] FiO2 40% PEEP 5. CC time 31 min spent in reviewing chart, labs, and images. Discussed with RN and SW. Mr Cunha is a 75 yo male w/ PMHx CAD, HTN, Hyperlipidemia, subclavian steel syndrome, subclavian stenosis s/p left subclavian sent placement complicated by retroperitoneal hematoma s/p evacuation in 08/2015), asthma, BART, CKD, DM2 who presented from home with home health care noted that he was short of breath and valverde with O2 saturations less than 89% as low as 84% not improved with nasal cannulated oxygen placed on CPAP and brought to ED for further care. He was just discharged from the hospital a week ago on April 19, 2021 for abdom inal pain and was going for further cardiac testing with outpatient stress testing scheduled on May 28, 2021. Had echocardiogram April 17, 2021 with normal-appearing EF with moderate concentric LVH no significant valvular abnormalities. WBC 20, Hb 10.7, platelets 268, NA 140, K3.8, BUN 21, CR 2.9, glucose 162, albumin 3, troponin I 1.372, NT proBNP 33,318. EKG appears sinus tachycardia rate of 105 bpm with multiple PACs small ST depressions in lead II and V5. TWI in V6. Chest radiograph with diffuse interstitial and alveolar opacities and ET tube 5.8 cm above the leilani. Due to worsening respiratory status ED physician elected to intubate patient. Seen postintubation. Blood pressure little low after propofol bolus, but improved. Significant white frothy sputum per ET tube. Admitted to ICU for further care 04/25: On vent FiO2 50, PEEP 5. Febrile, T-max 103.3. Patient was initiated on cooling blankets. Procalcitonin 0.13. 04/26: COVID-19 positive. Febrile overnight that was managed with cooling blankets. On vent with FiO2 50%, PEEP 5. Per cardiology, elevated troponins likely secondary to demand ischemia; continue heparin drip per cardiology. Continue treatment with remdesivir, steroids, and antibiotics. 04/27: Afebrile. Vent with FiO2 50%, PEEP 5. Troponin 2.8 yesterday; probable type II, demand ischemia. New onset A. fib. Cont heparin gtt and prn digoxin, per cardiology. Contnue treatment with remdesivir, steroids, and prophylactic antibiotics. BG 323 this morning; will add basal insulin. 04/28: Afebrile. FiO2 50%, PEEP 5. Nontunneled HD catheter placed yesterday due to worsening kidney function; eGFR 16 (CKD4). Chest x-ray showed unchanged interstitial opacities. Continue empiric antibiotics, steroids, and remdesivir. Continue heparin infusion, for new dx A. fib. 04/29: Afebrile, remains on vent at FiO2 45%, PEEP 5. WBC 20.4. Hemodialysis per nephrology. We will continue treatment with empiric antibiotics, remdesivir, and steroids. Continue heparin infusion and supportive care. 04/30: Patient seen and examined in the [place] [address] ICU. He remains on the vent. AC/20/500/40 5% with 5 PEEP. Currently on dialysis. Has OG feeds running. Has a Nieves to bedside drainage. Sedated with propofol and fentanyl. He remains critically ill 05/01: Patient seen and examined in the [place] [address] ICU. He is still intubated. AC/20/500/40 percent with 5 of PEEP. In A. fib. Sedated with propofol fentanyl and Versed. Has a heparin drip 05/02: Patient seen and examined in the [place] [address] ICU. He is sedated with propofol fentanyl and Versed. AC/20/500/40 percent with 5 of PEEP. He remains critically ill 05/03: Patient seen and examined in the [place] [address] ICU. He is still intubated. AC/20/500/70 percent with 5 of PEEP. Sedated with fentanyl Versed and propofol. Remains critically ill 05/04: Patient seen and examined in the [place] [address] ICU. Still intubated. Sedated with propofol and fentanyl. AC/20/500/70 percent with 5 of PEEP. On dialysis currently 05/05: Patient seen and examined in the [place] [address] ICU. He remains on the vent. AC/20/500/40 percent with 5 of PEEP. He remains critically ill 05/06: Patient seen and examined in the [place] [address] ICU. He remains mechanically ventilated. AC/20/500/40 05/07: Patient seen and examined in the [place] [address] ICU. He remains mechanically ventilated. ILDA on CKD - ATN 2/2 sepsis/ Hypotension,UOP good,on IV Lasix ; requiring dialysis, . AC/20/500/40 percent with 5 of PEEP. Sedated with propofol Dex and fentanyl 05/08: Currently on 40%, 5 of PEEP. now on cardene gtt. Patient seen and examined in the [place] [address] ICU. 05/09: VENT [id number]%, 5 of PEEP. Mild pulmonary edema with new small right pleural effusion and basilar opacities. Change central line and send cath tip for cultures. 05/10: VENT pgbcrep19%, 5 of PEEP. Mild pulmonary edema with new small right pleural effusion and basilar opacities. Patient seen and examined in the [place] [id number] ICU 05/11: Continue iv cefepime , add zyvox, sputum culture 05/12: Continue iv cefepime , add zyvox, sputum culture. VENT [id number]%, 5 of PEEP. now on cardene gtt prn 05/13: Did not tolerate sedation vacation 05/11/2021, profoundly hypertensive. ABG/CXR--changes as needed. Continue iv cefepime , add zyvox, sputum culture. VENT nsiqqhg03%, 5 of PEEP. Mild pulmonary edema with new small right pleural effusion and basilar opacities. now on cardene gtt prn 05/14: Patient seen and examined at bedside. Remains intubated and sedated planning for tracheostomy tomorrow. Continue current respiratory support; continue antibiotics, continue sedation. Follow recommendations of pulmonary, renal, and infectious disease 05/15: Patient seen and examined at bedside. Remains intubated and sedated planning for tracheostomy today. Continue current respiratory support; continue antibiotics, continue sedation. 05/16: Patient seen and examined at bedside. Underwent tracheostomy yesterday today tolerated well. When seen this morning patient is still notably sedated respiratory status is stable. measures. 05/17: Patient seen and examined at bedside. Attempting to wean sedation. Patient with some diarrhea. Per infectious disease will give erythromycin eye ointment for eye lesions. Nephro and pulm also following. 05/18: Patient seen and examined at bedside. Attempting to increase tube feeds, GI consulted for PEG evaluation. Otherwise no major clinical changes. Continue to wean sedation. Plan of care discussed with bedside nurse. 05/19: Patient seen and examined at bedside. Apparently had a fair bit of vomit ing overnight. GI following for PEG evaluation. Otherwise patient remained stable. Plan of care discussed with bedside nurse. 05/20: Patient seen and examined at bedside. Again had multiple bouts of vomiting yesterday. GI continuing to follow for PEG evaluation although on hold right now due to persistent vomiting. Leukocytosis 05/21: Afebrile, no acute events overnight. Remains on vent, FiO2 40%, PEEP 5. S/P tracheostomy on 05/15/2021. KUB on 05/19/2021 consistent with ileus. Per GI, continue NG tube to suction and parenteral nutrition for now. Continue IV antibiotics, per ID. Continue hemodialysis 05/22: Afebrile. On vent with FiO2 40%, PEEP 5. Excessive NG output. Continue NG tube to suction for now; PEG on hold for now. Continue hemodialysis, per nephrology. Continue IV antibiotics, per ID. 05/23: Afebrile. Vent with FiO2 40%, PEEP 5. NG tube for 635 mL out overnight. Continue NG tube to suction. HD 05/24: No acute events overnight. Afebrile. NG tube output has decreased. Kidney function appears stable. Continue IV antibiotics, per ID. Patient has been accepted to [facility], pending insurance authorization. 05/25: Afebrile. On vent with FiO2 40%, PEEP 5. Hemoglobin 8.6 yesterday, hemoglobin 7.3 today. Reportedly had HD yesterday. Continue IV antibiotics, per ID; WBC possibly reactive to ileus. Has been accepted at [facility]; transfer pending, but will need PEG tube placement prior. 05/26: Afebrile. On vent with FiO2 40%, PEEP 5. Hemoglobin 7.3 yesterday, and hemoglobin 7.2 today; continue to trend. Leukocytosis slightly improved, WBC 12.9 today. Has been accepted at [facility]; transfer pending, but will need PEG tube placement prior. 05/27: Afebrile. On vent with FiO2 40%, PEEP 5. Hemoglobin remains stable at 7.2 today; continue to trend. WBC 13.4. Kidney function appears to be stabilized. LTAC transfer is pending PEG tube placement. Off meropenem; will continue to monitor. Kidney function appears to be stable. 05/28: No acute events overnight. Patient doing well on trach with settings of 40% FiO2 and PEEP of 8. Pending PEG placement after ileus is resolved will defer this to GI for timing of PEG placement.. Also pending tunneled catheter placement for dialysis. 05/29: No acute events or night. Patient tolerating trach collar humidified. Saturating at 99%. Pending PICC line placement and IJ central line removal. Per ID. Possibly in not needing HD. Making urine adequately with Lasix as needed. 05/30: No acute events overnight. Patient doing well on trach collar. Hemoglobin decreased down to 6.7 pending 1 unit PRBC transfusion. Restarted on linezolid and Flagyl and cefepime. Pending PICC placement and central line IJ removal. 05/31: No acute events overnight. Patient saturating 100% on trach collar. Hemoglobin improved after 1 unit PRBC transfusion to 8.4. Patient is currently undergoing dialysis and his labs have been stable. Patient's chart, labs, images were reviewed and discussed with RN 06/01: No acute events overnight. Patient saturating well on trach collar. Patient seen and examined bedside and on HD. Hemoglobin trended down from 8.4- 7.3. Afebrile in the last 24 hours. Patient's chart, labs, images were reviewed and discussed with RN 06/02: No acute events overnight. Patient saturating 100% on trach collar. Tmax 100.3. Yeast 1 of 4 bottles on blood cultures. Plan to remove central line and dialysis catheter. Family consideration for tunneled catheterization possibly hold. Micafungin was started per ID. 06/03: No acute events overnight. Left IJ placed by IR. Defer to ID for antibiotic management for cultures of the catheter tip and yeast. 06/04: No overnight events afebrile. Sedated on propofol and Precedex. On vent with tracheostomy PEEP 5 FiO2 40%. Being treated for fungemia and receiving TPN. Left IJ CVC functioning well. HD catheter right. 06/05: Afebrile. Still requiring minimal sedation on propofol and Precedex. Requiring vent support via trach PEEP five FiO2 40%. KUB with less gaseous distention. No BM but bowel sounds are audible. 06/06: Afebrile. On minimal sedation with propofol and Precedex and vent support via trach PEEP 5 FiO2 40%. Still in A. fib on telemetry. Catheter tip no growth to date sputum with Mariya. Repeat blood cultures no growth to date 06/07: Afebrile. On minimal sedation propofol and Precedex with for trach PEEP 5 FiO2 40%. He is to be in A. fib. Hb 6.9. Will transfuse with dialysis today. Did have stool smear overnight 06/08: Afebrile. On minimal sedation propofol Precedex tolerated pressure support yesterday back on AC PEEP 5 FiO2 40% use more alert trying to pull out his tracheostomy successfully disconnected himself from the vent. Not easily redirectable. Admits for safety. In A. fib. Labs pending 06/09: Vomited large amount of tube feeding overnight and NG attached to low suction. Remains in A. fib. Minimal sedation with propofol and Precedex. Tolerated pressure support back on AC FiO2 40% PEEP 5 getting dialysis currently. 06/11/2021: Patient seen and examined in the ICU. Mitts on for patient safety. Sedated with dexmedetomidine, propofol, and fentanyl. IV TPN hanging. NG tube running at 10 mL per hour. Currently on trach shield 10L. Discussed with RN. Chart reviewed. Vitals/I&O Vitals/I&O: Vital Signs Date Time Temp Pulse Resp B/P (MAP) Pulse Ox O2 Delivery O2 Flow Rate FiO2 06/19/21 06:13 61 141/52 06/19/21 05:00 20 99 Ventilator 06/19/21 04:00 98.2 98.2 06/18/21 19:32 10.0 I & O 06/18/21 06/18/21 06/19/21 15:00 23:00 07:00 Intake Total 100 ml 1521 ml Output Total 700 ml 475 ml 70 ml Balance -600 ml 1046 ml -70 ml Physical Exam Physical Exam: GENERAL: awake and comfortable on vent HEENT: Normocephalic, atraumatic, redness and erythema of both eyes improved, NG tube present NECK: right dialysis catheter present clean,Lt neck central line changed ( 05/11) Trach + HEART: S1, S2.no gallop LUNGS: Decreased breath sounds. ABDOMEN: Less distended, bowel sounds present GENITOURINARY: Nieves in place. EXTREMITIES: Edema present. DERMATOLOGIC: Warm, dry, no generalized rash. NEUROLOGIC: Opens eyes PICC line clean General: Alert, No acute distress Heart: Regular rate, Normal S1, Normal S2, No murmurs, Gallops Lungs: Clear Abdomen: Soft, No tenderness, Other (obese) Extremities: Other (EDEMA) Skin: No rashes, No breakdown, No significant lesion Labs Labs: Laboratory Tests Test 06/18/21 12:45 06/18/21 18:04 06/18/21 23:30 06/19/21 06:09 Glucose (Fingerstick) 157 mg/dL (70-99) 122 mg/dL (70-99) 136 mg/dL (70-99) 177 mg/dL (70-99) Assessment and Plan Assessmemt and Plan Problems Medical Problems: (1) Elevated troponin Status: Acute (2) Person under investigation for COVID-19 Status: Acute (3) Pulmonary edema Status: Acute Comment Review of Relevant I have reviewed the following items juanita (where applicable) has been applied. Medications: Current Medications Medications (Trade) Dose Ordered Sig/Jodie Route PRN Reason Start Time Stop Time Status Last Admin Dose Admin Sodium Chloride 80 meq/Potassium Chloride 30 meq/ Potassium Phosphate 15 mmol/ Magnesium Sulfate 8 meq/ Multivitamins 5 ml/Zinc/Copper/ Manganese/ Selenium 1 ml/ Total Parenteral Nutrition/Amino Acids/Dextrose 1,440 ml @ 60 mls/hr TPN CONT IV 06/18/21 22:00 06/19/21 21:59 06/18/21 22:01 Justifications for Admission General Conditions Altered mental status?: Yes Justification of admission: Patient has tachycardia (> 100 beats per minute) or hypotension (SBP < 90 mm Hg) leading to inadequate systemic perfusion as indicated by severe/persistent altered mental status. Other Justification SARAH BETH ARREOLA MD Jun 19, 2021 06:34
[2021-06-19 06:52] LABS: BASO # 0.2 x10^3/uL (0.0-0.2); BASO % 1 % (0-3); CALCIUM 8.2 mg/dL (8.5-10.1); CREATININE 2.1 mg/dL (0.7-1.3); EOS # 1.7 x10^3/uL (0.0-0.7); EOS % 14 % (0-3); GFR 37.5; HEMATOCRIT 24.8 % (39.0-53.0); LYMPH # 2.5 x10^3/uL (1.0-4.8); LYMPH % 20 % (24-48); MEAN CORPUSCULAR HEMOGLOBIN 28 pg (25-35); MEAN CORPUSCULAR HGB CONC 32 g/dL (31-37); MEAN CORPUSCULAR VOLUME 86 fL (79-100); MONO # 1.3 x10^3/uL (0.0-1.1); MONO % 10 % (0-9); NEUT # 6.9 x10^3/uL (1.8-7.7); NEUT % 55 % (31-73); PLATELET COUNT 274 x10^3/uL (140-400); POTASSIUM 3.6 mmol/L (3.5-5.1); RED CELL DISTRIBUTION WIDTH 17.1 % (11.5-14.5); WHITE BLOOD COUNT 12.5 x10^3/uL (4.0-11.0)
[2021-06-19] MEDS: ASPIRIN CHEWABLE 81 MG TABLET. PO SCH (08:00)
[2021-06-19] MEDS: PANTOPRAZOLE IV PUSH 40 MG VIAL. IVP SCH (08:08)
[2021-06-19] MEDS: PROPOFOL 100 ML IV PRN ×2 (08:09→18:28)
[2021-06-19] MEDS: NYSTATIN TOPICAL POWDER 15GM BOTTLE. TP SCH ×2 (09:00→20:39)
[2021-06-19] MEDS: CEFEPIME HCL IV Push 1 GM VIAL. IVP SCH (09:23)
[2021-06-19] MEDS: INSULIN GLARGINE SYRINGE. SQ SCH ×2 (09:25→20:39)
--- NOTE | 2021-06-19 09:31 | PDOC ---
Date of Service: DATE: 06/19/21 TIME: 09:28 Objective: Objective: Reviewed chart - appeal for DC to LTAC w/o PEG in process. Vital Signs: Vital Signs Date Time Temp Pulse Resp B/P (MAP) Pulse Ox O2 Delivery O2 Flow Rate FiO2 06/19/21 09:25 88 162/70 06/19/21 08:16 99 Ventilator 06/19/21 07:00 20 06/19/21 04:00 98.2 98.2 06/18/21 19:32 10.0 Labs: Laboratory Tests Test 06/18/21 12:45 06/18/21 18:04 06/18/21 23:30 06/19/21 06:09 Glucose (Fingerstick) 157 mg/dL 122 mg/dL 136 mg/dL 177 mg/dL Test 06/19/21 06:10 White Blood Count 12.5 x10^3/uL Red Blood Count 2.90 x10^6/uL Hemoglobin 8.0 g/dL Hematocrit 24.8 % Mean Corpuscular Volume 86 fL Mean Corpuscular Hemoglobin 28 pg Mean Corpuscular Hemoglobin Concent 32 g/dL Red Cell Distribution Width 17.1 % Platelet Count 274 x10^3/uL Neutrophils (%) (Auto) 55 % Lymphocytes (%) (Auto) 20 % Monocytes (%) (Auto) 10 % Eosinophils (%) (Auto) 14 % Basophils (%) (Auto) 1 % Neutrophils # (Auto) 6.9 x10^3/uL Lymphocytes # (Auto) 2.5 x10^3/uL Monocytes # (Auto) 1.3 x10^3/uL Eosinophils # (Auto) 1.7 x10^3/uL Basophils # (Auto) 0.2 x10^3/uL Sodium Level 134 mmol/L Potassium Level 3.6 mmol/L Chloride Level 100 mmol/L Carbon Dioxide Level 29 mmol/L Anion Gap 5 Blood Urea Nitrogen 37 mg/dL Creatinine 2.1 mg/dL Estimated GFR (Cockcroft-Gault) 37.5 Glucose Level 172 mg/dL Calcium Level 8.2 mg/dL PE: GEN: NAD, has mittens LUNGS: trach/vent HEART: RRR ABD: NG canister w/ ~700cc total (brownish), stable distention, softish, seems sore today (right periumbilical), hernia NEURO/PSYCH: awake today, trying to say something A/P: COVID-19 s/p trach, ileus - on TPN, requiring NG suction, not PEG candidate -- Chronically ill, difficult situation. Justicifation of Admission Dx: Justifications for Admission: Justification of Admission Dx: Yes Aspiration Pneumonia: Hemodynamic Instability TAIWO THEODORE Jun 19, 2021 09:31
--- NOTE | 2021-06-19 09:32 | PDOC ---
DATE OF SERVICE DATE: 06/19/21 TIME: 09:29 SUBJECTIVE ROS Patient is awake on ventilator, stable OBJECTIVE Vital Signs Vital Signs Date Time Temp Pulse Resp B/P (MAP) Pulse Ox O2 Delivery O2 Flow Rate FiO2 06/19/21 09:25 88 162/70 06/19/21 08:16 99 Ventilator 06/19/21 07:00 20 06/19/21 04:00 98.2 98.2 06/18/21 19:32 10.0 I & 0 Intake and Output 06/19/21 07:00 Intake Total 2641 ml Output Total 1245 ml Balance 1396 ml IV Total 2641 ml Output Urine Total 845 ml Gastric Drainage Total 400 ml PHYSICAL EXAM Physical Exam GENERAL: awake on vent HEENT: NG tube present NECK: right dialysis catheter present , Trach + HEART: S1, S2.no gallop LUNGS: Decreased breath sounds. ABDOMEN: bowel sounds present GENITOURINARY: Nieves in place. EXTREMITIES: trace edema DERMATOLOGIC: no generalized rash. NEUROLOGIC: Opens eyes DIAGNOSIS/ASSESSMENT Assessment & Plan ILDA-ATN- requiring dialysis; , Oliguric , currently on MWF schedule . No emergent indication for dialysis at this time Access - has temp HDC ; if no renal recovery will need Tunneled HDC when OK with ID Fungemia-on antifungal per ID HypoNatremia- Resolved HypoKalemia - replace CKD stage 3 Acute Hypoxic Resp failure - S/P Trach COVID 19 Pneumonia Anemia - Hgb stable COMMENT/RELEVANT DATA Meds Current Medications Medications (Trade) Dose Ordered Sig/Jodie Start Time Stop Time Status Last Admin Dose Admin Acetaminophen (Tylenol Supp) 650 mg PRN Q6HRS PRN 05/29/21 16:15 06/17/21 08:12 650 MG Acetaminophen (Tylenol) 650 mg PRN Q6HRS PRN 04/24/21 14:00 Cancel Albumin Human 200 ml @ 200 mls/hr 1X PRN PRN 06/18/21 15:00 06/18/21 20:59 DC Amiodarone HCl (Cordarone) 200 mg DAILY 04/28/21 09:00 05/22/21 16:27 DC 05/21/21 11:07 200 MG Amiodarone HCl 150 mg/Dextrose 103 ml @ 618 mls/hr 1X ONCE 04/27/21 02:30 04/27/21 02:39 DC 04/27/21 02:30 618 MLS/HR Amiodarone HCl 450 mg/Dextrose 259 ml @ 0 mls/hr 1X ONCE 05/22/21 16:30 05/22/21 16:34 DC 05/22/21 16:59 33 MLS/HR Amlodipine Besylate (Norvasc) 10 mg DAILY 05/16/21 09:00 06/19/21 09:25 10 MG Aspirin (Aspirin Chewable) 81 mg DAILYWBKFT 05/03/21 10:00 06/15/21 09:54 81 MG Aspirin (Ecotrin) 81 mg DAILYWBKFT 04/25/21 08:00 05/03/21 09:56 DC 05/02/21 07:20 81 MG Atorvastatin Calcium (Lipitor) 80 mg QHS 04/24/21 21:00 06/18/21 21:15 80 MG Bisacodyl (Dulcolax Supp) 10 mg 1X ONCE 06/04/21 16:30 06/04/21 16:31 DC 06/04/21 17:56 10 MG Bupivacaine HCl/ Epinephrine Bitart (Sensorcain-Epi 0.5%-1:409041 Mpf) 30 ml STK-MED ONCE 05/15/21 07:05 05/15/21 07:06 DC Carvedilol (Coreg) 3.125 mg BIDWMEALS 04/24/21 17:00 04/25/21 15:42 DC 04/25/21 09:23 3.125 MG Cefepime HCl (Maxipime) 1 gm DAILY 06/15/21 09:30 06/19/21 09:23 1 GM Cellulose (Surgicel Fibrillar 1x2) 1 each STK-MED ONCE 05/15/21 07:05 05/15/21 07:06 DC 05/15/21 09:40 1 EACH Chlorhexidine Gluconate (Peridex) 15 ml BID 04/24/21 21:00 04/25/21 11:19 DC 04/24/21 20:49 15 ML Daptomycin 600 mg/ Sodium Chloride 50 ml @ 100 mls/hr Q48H 05/04/21 15:00 05/06/21 08:07 DC 05/04/21 15:24 100 MLS/HR Daptomycin 620 mg/ Sodium Chloride 50 ml @ 100 mls/hr Q48H 06/15/21 11:00 06/17/21 11:35 100 MLS/HR Dexamethasone Sodium Phosphate (Decadron) 4 mg STK-MED ONCE 05/15/21 07:53 05/15/21 07:53 DC Dexmedetomidine HCl 400 mcg/ Sodium Chloride 100 ml @ 0 mls/hr CONT PRN 05/04/21 10:30 06/19/21 06:15 19.7 MLS/HR Dextrose (Dextrose 50%-Water Syringe) 12.5 gm PRN Q15MIN PRN 06/09/21 16:30 UNV Digoxin (Lanoxin) 250 mcg 1X ONCE 04/26/21 13:00 04/26/21 13:05 DC 04/26/21 15:02 250 MCG Ephedrine Sulfate (ePHEDrine PF IN SALINE SYRINGE) 50 mg STK-MED ONCE 05/15/21 09:15 05/15/21 09:15 DC Erythromycin (Romycin) 0.25 inch BID 05/17/21 12:00 05/25/21 13:24 DC 05/25/21 07:43 0.25 INCH Etomidate (Amidate) 20 mg STK-MED ONCE 04/24/21 13:38 04/24/21 13:38 DC Fentanyl Citrate 30 ml @ 0 mls/hr CONT PRN 04/24/21 14:00 06/19/21 01:56 2.5 MLS/HR Fentanyl Citrate (Fentanyl 2ml Vial) 25 mcg PRN Q1HR PRN 04/24/21 14:00 05/17/21 16:12 25 MCG Fluconazole/ Sodium Chloride 100 ml @ 100 mls/hr Q24H 06/05/21 09:00 06/15/21 08:53 DC 06/14/21 10:36 100 MLS/HR Furosemide (Lasix) 80 mg TID 05/27/21 09:00 06/01/21 11:08 DC 05/31/21 20:10 80 MG Heparin Sodium (Porcine) (Heparin Sodium) 5,000 unit Q8HRS 05/18/21 10:00 05/30/21 11:07 DC 05/30/21 06:07 5,000 UNIT Heparin Sodium/ Dextrose 250 ml @ 0 mls/hr CONT PRN 04/24/21 16:45 05/01/21 12:32 DC 05/01/21 05:10 10 MLS/HR Hydralazine HCl (Apresoline Inj) 10 mg PRN QID PRN 05/22/21 16:30 06/11/21 21:08 10 MG Hydralazine HCl (Apresoline) 25 mg QID 05/10/21 10:00 05/22/21 16:27 DC 05/21/21 17:24 25 MG Info (Anti-Coagulation Monitoring By Pharmacy) 1 each PRN DAILY PRN 04/25/21 13:00 05/02/21 07:36 DC 04/26/21 08:51 1 EACH Info (PHARMACY MONITORING -- do not chart) 1 each PRN DAILY PRN 06/18/21 15:00 UNV Info (Tpn Per Pharmacy) 1 each PRN DAILY PRN 05/22/21 10:00 06/18/21 10:57 1 EACH Insulin Glargine (Lantus Syringe) 20 unit BID 05/31/21 09:00 06/19/21 09:25 20 UNIT Insulin Human Lispro (HumaLOG) 3 units Q6HRS 06/09/21 18:00 06/19/21 06:15 3 UNITS Labetalol HCl (Normodyne Iv Push) 20 mg PRN Q2HR PRN 05/01/21 12:30 05/27/21 15:43 20 MG Lidocaine HCl (Buffered Lidocaine 1%) 6 ml 1X ONCE 06/04/21 09:30 06/04/21 09:31 DC 06/04/21 09:34 2 ML Lidocaine HCl (Lidocaine Pf 2% Vial) 5 ml STK-MED ONCE 05/15/21 07:53 05/15/21 07:53 DC Linezolid/Dextrose 300 ml @ 300 mls/hr Q12HR 05/31/21 09:00 UNV Lorazepam (Ativan Inj) 0.25 mg PRN Q4HRS PRN 05/21/21 09:00 06/02/21 04:30 0.25 MG Magnesium Sulfate 50 ml @ 25 mls/hr 1X ONCE 06/02/21 08:45 06/02/21 10:44 DC 06/02/21 09:53 25 MLS/HR Meropenem 500 mg/ Sodium Chloride 50 ml @ 100 mls/hr DAILY 05/23/21 09:00 05/25/21 11:55 DC 05/25/21 07:42 100 MLS/HR Methylnaltrexone [place] (Relistor) 12 mg 1X ONCE 06/10/21 12:00 06/10/21 12:01 DC 06/10/21 13:02 12 MG Metoprolol Tartrate (Lopressor Vial) 5 mg Q6HRS 04/25/21 18:00 06/19/21 06:13 5 MG Metronidazole 100 ml @ 100 mls/hr Q12HR 05/30/21 09:00 06/05/21 07:34 DC 06/04/21 20:32 100 MLS/HR Micafungin Sodium 100 mg/Dextrose 100 ml @ 100 mls/hr Q24H 06/15/21 10:00 06/18/21 09:00 100 MLS/HR Midazolam HCl (Versed) 5 mg 1X ONCE 05/24/21 15:15 05/24/21 15:16 DC 05/24/21 15:20 5 MG Montelukast Sodium (Singulair) 10 mg HS 04/24/21 21:00 06/18/21 21:15 10 MG Multi-Ingred Cream/Lotion/Oil/ Oint (Artificial Tears Eye Ointment) 1 danielito PRN Q1HR PRN 05/07/21 16:00 05/10/21 20:51 1 DANIELITO Nicardipine HCl 50 mg/Sodium Chloride 250 ml @ 25 mls/hr CONT PRN 05/06/21 18:45 05/20/21 19:47 37.5 MLS/HR Norepinephrine Bitartrate 8 mg/ Dextrose 258 ml @ 25.852 mls/ hr CONT PRN 05/02/21 21:00 05/09/21 06:10 DC 05/02/21 21:22 25.852 MLS/HR Nystatin (Nystop) 1 danielito BID 05/16/21 21:00 06/18/21 21:16 1 DANIELITO Ondansetron HCl (Zofran) 4 mg STK-MED ONCE 05/15/21 07:53 05/15/21 07:53 DC Pantoprazole Sodium (PROTONIX VIAL for IV PUSH) 40 mg DAILYAC 04/26/21 09:30 06/19/21 08:08 40 MG Phenylephrine HCl (PHENYLEPHRINE in 0.9% NACL PF) 1 mg STK-MED ONCE 05/15/21 07:51 05/15/21 07:51 DC Potassium Bicarbonate (Potassium Effervescent Tablet) 40 meq 1X ONCE 05/19/21 08:30 05/19/21 08:31 DC 05/19/21 08:50 40 MEQ Potassium Chloride/Water 100 ml @ 100 mls/hr Q1H 05/23/21 10:45 05/23/21 12:44 DC 05/23/21 13:17 100 MLS/HR Potassium Phosphate 10 mmol/ Sodium Chloride 103.3333 ml @ 51.667 m... Q2H 06/01/21 12:00 06/01/21 15:59 DC 06/01/21 13:24 51.667 MLS/HR Potassium Phosphate 13.6 mmol/Sodium Chloride 254.5333 ml @ 127.... 1X ONCE 06/08/21 14:00 06/08/21 15:59 DC 06/08/21 15:21 127.267 MLS/HR Potassium Phosphate 20 mmol/ Sodium Chloride 256.6667 ml @ 62.5 mls/hr 1X ONCE 05/13/21 12:15 05/13/21 16:21 UNV Potassium Phosphate 30 mmol/ Sodium Chloride 260 ml @ 62.5 mls/hr 1X ONCE 05/13/21 12:15 05/13/21 16:24 UNV Prochlorperazine Edisylate (Compazine) 5 mg PACU PRN PRN 05/15/21 06:00 05/16/21 05:59 DC Propofol 100 ml @ 4.185 mls/ hr CONT PRN 06/02/21 09:30 06/19/21 08:09 8.37 MLS/HR Propofol (Diprivan) 200 mg STK-MED ONCE 05/15/21 07:53 05/15/21 07:53 DC Remdesivir 100 mg/ Sodium Chloride 230 ml @ 460 mls/hr Q24H 04/26/21 17:30 04/29/21 17:59 DC 04/29/21 13:51 460 MLS/HR Remdesivir 200 mg/ Sodium Chloride 210 ml @ 210 mls/hr 1X ONCE 04/25/21 17:30 04/25/21 18:29 DC 04/25/21 17:09 210 MLS/HR Ringer's Solution 1,000 ml @ 30 mls/hr Q24H 05/15/21 06:00 05/15/21 17:59 DC 05/15/21 07:04 30 MLS/HR Rocuronium [place] (Zemuron) 50 mg STK-MED ONCE 05/15/21 07:06 05/15/21 07:07 DC Sodium Bicarbonate (Sodium Bicarb Adult 8.4% Syr) 50 meq 1X ONCE 04/27/21 09:45 04/27/21 09:46 DC 04/27/21 09:50 50 MEQ Sodium Chloride 1,000 ml @ 400 mls/hr Q2H30M PRN 06/18/21 15:00 06/19/21 02:59 DC Sodium Chloride (Normal Saline Flush) 10 ml 1X PRN PRN 06/18/21 15:00 06/18/21 22:00 DC Sodium Chloride 80 meq/Potassium Chloride 10 meq/ Potassium Phosphate 10 mmol/ Magnesium Sulfate 8 meq/ Multivitamins 5 ml/Zinc/Copper/ Manganese/ Selenium 1 ml/ Total Parenteral Nutrition/Amino Acids/Dextrose/ Fat Emulsion Intravenous 1,440 ml @ 60 mls/hr TPN CONT 06/13/21 22:00 06/14/21 21:59 DC 06/13/21 22:00 60 MLS/HR Sodium Chloride 80 meq/Potassium Chloride 20 meq/ Potassium Phosphate 13.6 mmol/Magnesium Sulfate 8 meq/ Multivitamins 5 ml/Zinc/Copper/ Manganese/ Selenium 1 ml/ Total Parenteral Nutrition/Amino Acids/Dextrose/ Fat Emulsion Intravenous 1,440 ml @ 60 mls/hr TPN CONT 06/16/21 22:00 06/17/21 21:59 DC 06/16/21 21:53 60 MLS/HR Sodium Chloride 80 meq/Potassium Chloride 20 meq/ Potassium Phosphate 15 mmol/ Magnesium Sulfate 8 meq/ Multivitamins 5 ml/Zinc/Copper/ Manganese/ Selenium 1 ml/ Total Parenteral Nutrition/Amino Acids/Dextrose/ Fat Emulsion Intravenous 1,440 ml @ 60 mls/hr TPN CONT 06/17/21 22:00 06/18/21 21:59 DC 06/17/21 22:11 60 MLS/HR Sodium Chloride 80 meq/Potassium Chloride 30 meq/ Potassium Phosphate 10 mmol/ Magnesium Sulfate 8 meq/ Multivitamins 5 ml/Zinc/Copper/ Manganese/ Selenium 1 ml/ Total Parenteral Nutrition/Amino Acids/Dextrose/ Fat Emulsion Intravenous 1,440 ml @ 60 mls/hr TPN CONT 06/12/21 22:00 06/13/21 21:59 DC 06/12/21 21:56 60 MLS/HR Sodium Chloride 80 meq/Potassium Chloride 30 meq/ Potassium Phosphate 15 mmol/ Magnesium Sulfate 8 meq/ Multivitamins 5 ml/Zinc/Copper/ Manganese/ Selenium 1 ml/ Total Parenteral Nutrition/Amino Acids/Dextrose 1,440 ml @ 60 mls/hr TPN CONT 06/18/21 22:00 06/19/21 21:59 06/18/21 22:01 60 MLS/HR Sodium Chloride 90 meq/Potassium Chloride 25 meq/ Magnesium Sulfate 10 meq/Calcium Gluconate 5 meq/ Multivitamins 5 ml/Zinc/Copper/ Manganese/ Selenium 1 ml/ Total Parenteral Nutrition/Amino Acids/Dextrose/ Fat Emulsion Intravenous 1,080 ml @ 45 mls/hr TPN CONT 05/22/21 22:00 05/23/21 21:59 DC 05/22/21 21:22 45 MLS/HR Sodium Chloride 90 meq/Potassium Chloride 30 meq/ Potassium Phosphate 13.6 mmol/Magnesium Sulfate 10 meq/ Multivitamins 5 ml/Zinc/Copper/ Manganese/ Selenium 1 ml/ Total Parenteral Nutrition/Amino Acids/Dextrose/ Fat Emulsion Intravenous 1,200 ml @ 50 mls/hr TPN CONT 06/01/21 22:00 06/02/21 21:59 DC 06/01/21 21:33 50 MLS/HR Sodium Chloride 90 meq/Potassium Chloride 30 meq/ Potassium Phosphate 13.6 mmol/Magnesium Sulfate 12 meq/ Multivitamins 5 ml/Zinc/Copper/ Manganese/ Selenium 1 ml/ Total Parenteral Nutrition/Amino Acids/Dextrose 1,200 ml @ 50 mls/hr TPN CONT 06/07/21 22:00 06/08/21 21:59 DC 06/07/21 22:16 50 MLS/HR Sodium Chloride 90 meq/Potassium Chloride 30 meq/ Potassium Phosphate 13.6 mmol/Magnesium Sulfate 12 meq/ Multivitamins 5 ml/Zinc/Copper/ Manganese/ Selenium 1 ml/ Total Parenteral Nutrition/Amino Acids/Dextrose/ Fat Emulsion Intravenous 1,440 ml @ 60 mls/hr TPN CONT 06/11/21 22:00 06/12/21 21:59 DC 06/11/21 22:13 60 MLS/HR Sodium Chloride 90 meq/Potassium Chloride 50 meq/ Magnesium Sulfate 10 meq/Calcium Gluconate 5 meq/ Multivitamins 5 ml/Zinc/Copper/ Manganese/ Selenium 1 ml/ Total Parenteral Nutrition/Amino Acids/Dextrose/ Fat Emulsion Intravenous 960 ml @ 40 mls/hr TPN CONT 05/27/21 22:00 05/28/21 21:59 DC 05/27/21 22:03 40 MLS/HR Sodium Chloride 90 meq/Potassium Chloride 50 meq/ Potassium Phosphate 5 mmol/ Magnesium Sulfate 10 meq/Calcium Gluconate 5 meq/ Multivitamins 5 ml/Zinc/Copper/ Manganese/ Selenium 1 ml/ Total Parenteral Nutrition/Amino Acids/Dextrose/ Fat Emulsion Intravenous 1,200 ml @ 50 mls/hr TPN CONT 05/30/21 22:00 05/31/21 21:59 DC 05/30/21 21:57 50 MLS/HR Sodium Phosphate 15 mmol/Dextrose 105 ml @ 105 mls/hr 1X ONCE 05/29/21 11:00 05/29/21 11:59 DC 05/29/21 11:53 105 MLS/HR Sodium Phosphate 15 mmol/Sodium Chloride 105 ml @ 105 mls/hr 1X ONCE 05/29/21 11:45 05/29/21 12:44 UNV Succinylcholine Chloride (Anectine) 200 mg STK-MED ONCE 04/24/21 13:38 04/24/21 13:38 DC Vecuronium [place] (Norcuron Bolus) 6 mg PRN Q6HRS PRN 04/30/21 11:15 05/14/21 09:12 6 MG Lab Laboratory Tests Test 06/18/21 12:45 06/18/21 18:04 06/18/21 23:30 06/19/21 06:09 Glucose (Fingerstick) 157 mg/dL (70-99) 122 mg/dL (70-99) 136 mg/dL (70-99) 177 mg/dL (70-99) Test 06/19/21 06:10 White Blood Count 12.5 x10^3/uL (4.0-11.0) Red Blood Count 2.90 x10^6/uL (4.30-5.70) Hemoglobin 8.0 g/dL (13.0-17.5) Hematocrit 24.8 % (39.0-53.0) Mean Corpuscular Volume 86 fL (79-100) Mean Corpuscular Hemoglobin 28 pg (25-35) Mean Corpuscular Hemoglobin Concent 32 g/dL (31-37) Red Cell Distribution Width 17.1 % (11.5-14.5) Platelet Count 274 x10^3/uL (140-400) Neutrophils (%) (Auto) 55 % (31-73) Lymphocytes (%) (Auto) 20 % (24-48) Monocytes (%) (Auto) 10 % (0-9) Eosinophils (%) (Auto) 14 % (0-3) Basophils (%) (Auto) 1 % (0-3) Neutrophils # (Auto) 6.9 x10^3/uL (1.8-7.7) Lymphocytes # (Auto) 2.5 x10^3/uL (1.0-4.8) Monocytes # (Auto) 1.3 x10^3/uL (0.0-1.1) Eosinophils # (Auto) 1.7 x10^3/uL (0.0-0.7) Basophils # (Auto) 0.2 x10^3/uL (0.0-0.2) Sodium Level 134 mmol/L (136-145) Potassium Level 3.6 mmol/L (3.5-5.1) Chloride Level 100 mmol/L (98-107) Carbon Dioxide Level 29 mmol/L (21-32) Anion Gap 5 (6-14) Blood Urea Nitrogen 37 mg/dL (8-26) Creatinine 2.1 mg/dL (0.7-1.3) Estimated GFR (Cockcroft-Gault) 37.5 Glucose Level 172 mg/dL (70-99) Calcium Level 8.2 mg/dL (8.5-10.1) Results All relevant outside records, renal labs, imaging studies, telemetry/EKG's were reviewed. Justicifation of Admission Dx: Justifications for Admission: Justification of Admission Dx: Yes Aspiration Pneumonia: Hemodynamic Instability JASMEET LAM MD Jun 19, 2021 09:32
[2021-06-19] MEDS ORDERED: BISACODYL 10 MG SUPP.RECT. PR ONE (09:45)
[2021-06-19] MEDS: MICAFUNGIN 100 MG in IV DEXTROSE 5% 100ML 100 ML IV SCH (10:05)
--- NOTE | 2021-06-19 10:49 | PDOC ---
PULMONARY PROGRESS NOTES DATE: 06/19/21 TIME: 10:47 Subjective remains on vent support on AC mode Did 3 hours of trach shield yesterday Vitals Vital Signs Date Time Temp Pulse Resp B/P (MAP) Pulse Ox O2 Delivery O2 Flow Rate FiO2 06/19/21 09:25 88 162/70 06/19/21 08:16 99 Ventilator 06/19/21 07:00 20 06/19/21 04:00 98.2 98.2 06/18/21 19:32 10.0 Comments Tracheostomy ros unable to obtain General: Alert Lungs: Clear Cardiovascular: S1, S2 Abdomen: Soft, Other (Nontender) Extremities: Other (1+ edema) Skin: Warm Labs Laboratory Tests Test 06/17/21 11:37 06/17/21 17:24 06/17/21 23:58 06/18/21 04:50 Glucose (Fingerstick) 185 mg/dL (70-99) 160 mg/dL (70-99) 225 mg/dL (70-99) White Blood Count 13.3 x10^3/uL (4.0-11.0) Red Blood Count 3.21 x10^6/uL (4.30-5.70) Hemoglobin 9.0 g/dL (13.0-17.5) Hematocrit 27.5 % (39.0-53.0) Mean Corpuscular Volume 86 fL (79-100) Mean Corpuscular Hemoglobin 28 pg (25-35) Mean Corpuscular Hemoglobin Concent 33 g/dL (31-37) Red Cell Distribution Width 17.3 % (11.5-14.5) Platelet Count 323 x10^3/uL (140-400) Neutrophils (%) (Auto) 53 % (31-73) Lymphocytes (%) (Auto) 18 % (24-48) Monocytes (%) (Auto) 11 % (0-9) Eosinophils (%) (Auto) 17 % (0-3) Basophils (%) (Auto) 2 % (0-3) Neutrophils # (Auto) 7.0 x10^3/uL (1.8-7.7) Lymphocytes # (Auto) 2.3 x10^3/uL (1.0-4.8) Monocytes # (Auto) 1.4 x10^3/uL (0.0-1.1) Eosinophils # (Auto) 2.2 x10^3/uL (0.0-0.7) Basophils # (Auto) 0.3 x10^3/uL (0.0-0.2) Sodium Level 136 mmol/L (136-145) Potassium Level 3.4 mmol/L (3.5-5.1) Chloride Level 101 mmol/L (98-107) Carbon Dioxide Level 26 mmol/L (21-32) Anion Gap 9 (6-14) Blood Urea Nitrogen 47 mg/dL (8-26) Creatinine 2.6 mg/dL (0.7-1.3) Estimated GFR (Cockcroft-Gault) 29.3 Glucose Level 181 mg/dL (70-99) Calcium Level 8.5 mg/dL (8.5-10.1) Phosphorus Level 3.2 mg/dL (2.6-4.7) Magnesium Level 1.9 mg/dL (1.8-2.4) Test 06/18/21 12:45 06/18/21 18:04 06/18/21 23:30 06/19/21 06:09 Glucose (Fingerstick) 157 mg/dL (70-99) 122 mg/dL (70-99) 136 mg/dL (70-99) 177 mg/dL (70-99) Test 06/19/21 06:10 White Blood Count 12.5 x10^3/uL (4.0-11.0) Red Blood Count 2.90 x10^6/uL (4.30-5.70) Hemoglobin 8.0 g/dL (13.0-17.5) Hematocrit 24.8 % (39.0-53.0) Mean Corpuscular Volume 86 fL (79-100) Mean Corpuscular Hemoglobin 28 pg (25-35) Mean Corpuscular Hemoglobin Concent 32 g/dL (31-37) Red Cell Distribution Width 17.1 % (11.5-14.5) Platelet Count 274 x10^3/uL (140-400) Neutrophils (%) (Auto) 55 % (31-73) Lymphocytes (%) (Auto) 20 % (24-48) Monocytes (%) (Auto) 10 % (0-9) Eosinophils (%) (Auto) 14 % (0-3) Basophils (%) (Auto) 1 % (0-3) Neutrophils # (Auto) 6.9 x10^3/uL (1.8-7.7) Lymphocytes # (Auto) 2.5 x10^3/uL (1.0-4.8) Monocytes # (Auto) 1.3 x10^3/uL (0.0-1.1) Eosinophils # (Auto) 1.7 x10^3/uL (0.0-0.7) Basophils # (Auto) 0.2 x10^3/uL (0.0-0.2) Sodium Level 134 mmol/L (136-145) Potassium Level 3.6 mmol/L (3.5-5.1) Chloride Level 100 mmol/L (98-107) Carbon Dioxide Level 29 mmol/L (21-32) Anion Gap 5 (6-14) Blood Urea Nitrogen 37 mg/dL (8-26) Creatinine 2.1 mg/dL (0.7-1.3) Estimated GFR (Cockcroft-Gault) 37.5 Glucose Level 172 mg/dL (70-99) Calcium Level 8.2 mg/dL (8.5-10.1) Laboratory Tests Test 06/18/21 12:45 06/18/21 18:04 06/18/21 23:30 06/19/21 06:09 Glucose (Fingerstick) 157 mg/dL (70-99) 122 mg/dL (70-99) 136 mg/dL (70-99) 177 mg/dL (70-99) Test 06/19/21 06:10 White Blood Count 12.5 x10^3/uL (4.0-11.0) Red Blood Count 2.90 x10^6/uL (4.30-5.70) Hemoglobin 8.0 g/dL (13.0-17.5) Hematocrit 24.8 % (39.0-53.0) Mean Corpuscular Volume 86 fL (79-100) Mean Corpuscular Hemoglobin 28 pg (25-35) Mean Corpuscular Hemoglobin Concent 32 g/dL (31-37) Red Cell Distribution Width 17.1 % (11.5-14.5) Platelet Count 274 x10^3/uL (140-400) Neutrophils (%) (Auto) 55 % (31-73) Lymphocytes (%) (Auto) 20 % (24-48) Monocytes (%) (Auto) 10 % (0-9) Eosinophils (%) (Auto) 14 % (0-3) Basophils (%) (Auto) 1 % (0-3) Neutrophils # (Auto) 6.9 x10^3/uL (1.8-7.7) Lymphocytes # (Auto) 2.5 x10^3/uL (1.0-4.8) Monocytes # (Auto) 1.3 x10^3/uL (0.0-1.1) Eosinophils # (Auto) 1.7 x10^3/uL (0.0-0.7) Basophils # (Auto) 0.2 x10^3/uL (0.0-0.2) Sodium Level 134 mmol/L (136-145) Potassium Level 3.6 mmol/L (3.5-5.1) Chloride Level 100 mmol/L (98-107) Carbon Dioxide Level 29 mmol/L (21-32) Anion Gap 5 (6-14) Blood Urea Nitrogen 37 mg/dL (8-26) Creatinine 2.1 mg/dL (0.7-1.3) Estimated GFR (Cockcroft-Gault) 37.5 Glucose Level 172 mg/dL (70-99) Calcium Level 8.2 mg/dL (8.5-10.1) Medications Active Scripts Medications Dose Route/Sig Max Daily Dose Days Date Category Glyburide 2.5 Mg Tablet 1 Tab PO DAILY 04/19/21 Rx Polyethylene Glycol 3350 17 Gm Powd.pack 17 Gm PO DAILY 04/19/21 Rx Dok (Docusate Sodium) 100 Mg Capsule 100 Mg PO PRN DAILY PRN 04/19/21 Rx Bisacodyl 5 Mg Tablet.dr 5 Mg PO PRN DAILY PRN 04/19/21 Rx Acetaminophen 325 Mg Tablet 650 Mg PO PRN Q4HRS PRN 04/19/21 Rx Aspirin Ec (Aspirin) 81 Mg Tablet.dr 81 Mg PO DAILYWBKFT 04/19/21 Rx Hydralazine Hcl 25 Mg Tablet 25 Mg PO QID 04/19/21 Rx Fenofibrate 54 Mg Tablet 1 Tab PO DAILY 04/17/21 Reported Potassium Chloride (Potassium Chloride) 20 Meq Tablet.er 20 Meq PO DAILY 04/17/21 Reported Coreg (Carvedilol) 12.5 Mg Tablet 37.5 Mg PO BIDWMEALS 04/17/21 Reported Rosuvastatin Calcium 40 Mg Tablet 40 Mg PO QHS 04/17/21 Reported Gabapentin (Gabapentin) 100 Mg Capsule 200 Mg PO BID 04/17/21 Reported Montelukast Sodium Tablet (Montelukast Sodium) 10 Mg Tablet 10 Mg PO HS 04/17/21 Reported Protonix (Pantoprazole Sodium) 20 Mg Tablet.dr 2 Tab PO DAILY 04/17/21 Reported Amlodipine Besylate 5 Mg Tablet 5 Mg PO DAILY 04/17/21 Reported Furosemide 40 Mg Tablet 1 Tab PO DAILY 04/17/21 Reported Proair Hfa Inhaler (Albuterol Sulfate) 8.5 Gm Hfa.aer.ad 2 Puff IH PRN Q4-6HRS PRN 21 04/16/21 Reported Advair 100-50 Diskus (Fluticasone/Salmeterol) 1 Each Disk.w.dev 1 Puff IH BID 04/16/21 Reported Comments Impression . IMPRESSION: 1. Acute hypoxic respiratory failure, multifactorial/COVID-19 viral pneumonia/ARDS, ongoing, intubated 04/25/2021, now status post tracheostomy 05/15/[address] chest with bilateral diffuse interstitial infiltrates without any significant pleural effusion 3. Leukocytosis, sepsis 4. Non-ST segment elevation [place] 5. History of tobacco use, suspect COPD, unknown FEV1 6. Chronic kidney disease.== HD as needed per renal 7. Metabolic acidosis multifactorial, improved 8. Abnormal chest x-ray, compatible with ARDS CHF 9. Hypoglycemia, continue to monitor 10. Hypotension multifactorial 11. Fever-- 12. Anemia- 13. Atrial fibrillation with rapid ventricular response, currently rate controlled 14. Ileus 15. Type 2 diabetes 16. A. fib 17. Fever secondary to fungemia, resolved Plan . Updated 06/19/21 Continue current vent support. Continue trach shield trials as tolerated. Patient requires Precedex to avoid agitation Follow ID recs --Fungemia Follow nephrology recs Follow GI recs -- illeus. PEG continues to be on hold. DVT/GI PPX D/W RN and RT [facility] has denied patient Patient has been very difficult to wean due to multifactorial etiologies including arrhythmias, increased respiratory rate, poor control of blood press ure during trials. Did better with trach shield yesterday Pt. is DNR Updated 06/18/21 Continue current vent support. Will skip CPAP trial and consider trach shield trial. Follow ID recs --Fungemia Follow nephrology recs Follow GI recs -- illeus. PEG continues to be on hold. DVT/GI PPX D/W RN and RT [facility] has denied patient Patient has been very difficult to wean due to multifactorial etiologies including arrhythmias, increased respiratory rate, poor control of blood pressure during trials. We will reach out to the family to discuss goals of care. We will try trach shield today Pt. is DNR Updated 06/17/21 Continue current vent support. We will try CPAP again today. Follow ID recs -- ongoing fever/Fungemia Follow nephrology recs Follow GI recs -- anemia on labs today/ illeus DVT/GI PPX D/W RN and RT [facility] has denied patient Patient has been very difficult to wean due to multifactorial etiologies including arrhythmias, increased respiratory rate, poor control of blood pressure during trials. We will reach out to the family to discuss goals of care. We will try CPAP again today. Pt. is DNR Updated 06/16/21 Continue current vent support Follow ID recs -- ongoing fever/Fungemia Follow nephrology recs Follow GI recs -- anemia on labs today/ illeus DVT/GI PPX D/W RN and RT [facility] has denied patient Patient has been very difficult to wean due to multifactorial etiologies including arrhythmias, increased respiratory rate, poor control of blood pressure during trials. We will reach out to the family to discuss goals of care. Pt. is DNR JONES FISHMAN MD Jun 19, 2021 10:49
--- NOTE | 2021-06-19 10:55 | NUR ---
SS following up with discharge planning. SS reviewed pt chart and discussed with pt RN. Pt is currently on the vent at 40%. COVID19 recovered. Pt on TPN, Propofol, and Precedex. Pt on IV Micafungin, IV Daptomycin, and IV Cefepime. Trach in place. Pt accepted at [facility], ; fax [phone], pending insurance authorization. Insurance denied pt for LTACH on 06/15/2021. Appeal in process. SS will continue to follow for discharge planning.
--- NOTE | 2021-06-19 11:04 | PDOC ---
Infectious Disease Note Subjective Subjective Patient is awake on ventilator ROS ROS Nausea vomiting diarrhea Vital Sign Vital Signs Vital Signs Date Time Temp Pulse Resp B/P (MAP) Pulse Ox O2 Delivery O2 Flow Rate FiO2 06/19/21 10:00 63 20 113/47 (69) 95 Ventilator 06/19/21 08:00 97.3 97.3 06/18/21 19:32 10.0 Physical Exam PHYSICAL EXAM GENERAL: awake and comfortable on vent HEENT: Normocephalic, atraumatic, redness and erythema of both eyes improved, NG tube present NECK: right dialysis catheter present clean,Lt neck central line changed ( 05/11) Trach + HEART: S1, S2.no gallop LUNGS: Decreased breath sounds. ABDOMEN: Less distended, bowel sounds present GENITOURINARY: Nieves in place. EXTREMITIES: Edema present. DERMATOLOGIC: Warm, dry, no generalized rash. NEUROLOGIC: Opens eyes PICC line clean Labs Lab Laboratory Tests Test 06/18/21 12:45 06/18/21 18:04 06/18/21 23:30 06/19/21 06:09 Glucose (Fingerstick) 157 mg/dL (70-99) 122 mg/dL (70-99) 136 mg/dL (70-99) 177 mg/dL (70-99) Test 06/19/21 06:10 White Blood Count 12.5 x10^3/uL (4.0-11.0) Red Blood Count 2.90 x10^6/uL (4.30-5.70) Hemoglobin 8.0 g/dL (13.0-17.5) Hematocrit 24.8 % (39.0-53.0) Mean Corpuscular Volume 86 fL (79-100) Mean Corpuscular Hemoglobin 28 pg (25-35) Mean Corpuscular Hemoglobin Concent 32 g/dL (31-37) Red Cell Distribution Width 17.1 % (11.5-14.5) Platelet Count 274 x10^3/uL (140-400) Neutrophils (%) (Auto) 55 % (31-73) Lymphocytes (%) (Auto) 20 % (24-48) Monocytes (%) (Auto) 10 % (0-9) Eosinophils (%) (Auto) 14 % (0-3) Basophils (%) (Auto) 1 % (0-3) Neutrophils # (Auto) 6.9 x10^3/uL (1.8-7.7) Lymphocytes # (Auto) 2.5 x10^3/uL (1.0-4.8) Monocytes # (Auto) 1.3 x10^3/uL (0.0-1.1) Eosinophils # (Auto) 1.7 x10^3/uL (0.0-0.7) Basophils # (Auto) 0.2 x10^3/uL (0.0-0.2) Sodium Level 134 mmol/L (136-145) Potassium Level 3.6 mmol/L (3.5-5.1) Chloride Level 100 mmol/L (98-107) Carbon Dioxide Level 29 mmol/L (21-32) Anion Gap 5 (6-14) Blood Urea Nitrogen 37 mg/dL (8-26) Creatinine 2.1 mg/dL (0.7-1.3) Estimated GFR (Cockcroft-Gault) 37.5 Glucose Level 172 mg/dL (70-99) Calcium Level 8.2 mg/dL (8.5-10.1) Micro BLOOD CULTURE LC Final Final FINAL ID= [MANDI PARAPSILOSIS] NO FURTHER WORKUP MANDI PARAPSILOSIS Unless otherwise specified, Testing Performed by: [address] [address] For Inquires, the Physician may contact the Microbiology department at [phone] Objective Assessment Fungemia May 30, 2021, C parapsilosis, 06/02 neg RT IJ central line removed cath tip sent for cult 1. Febrile illness resolved 2. Leukocytosis, was on steroids,ileus could contribute,improving 3. COVID-19 pneumonia. 4. Acute hypoxic respiratory failure status post intubation.Now S/P Trach 05/15 Pleural effusion 5. Congestive heart failure, acute on chronic. 6. Acute kidney injury on chronic kidney disease on hemodialysis. 7. Diabetes mellitus 2. 8. Atrial fibrillation. 9. Anemia. 10. Protein-calorie malnutrition. 11. Hypertention 12.Hyponatremia 13. Ileus, Bowel obstruction Peg TF on hold, OG to LIS 14.on PPN 15.Mild to Moderate Pleural effusion 16.Lt eye conjunctivitis resolved Plan Plan of Care Reculture blood so far negative Cont Cefepime Dapto and micafungin Change all the lines if not done already Monitor labs and cultures Remains critically ill Continue supportive care Prognosis very poor Discussed with nursing staff JAD RIVERO MD Jun 19, 2021 11:04
[2021-06-19] MEDS: NORMAL SALINE IV SCH (11:19)
[2021-06-19] MEDS: DAPTOMYCIN IV SCH (11:19)
[2021-06-19] MEDS: TPN PER PHARMACY MC PRN (13:38)
--- NOTE | 2021-06-19 13:43 | NUR ---
Pharmacy TPN Dosing Note S: NILAM LAN is a 75 year old M Currently receiving Central Continuous TPN started 05/22/21 B:Pertinent PMH: ILEUS Height: 6 feet, 2 inches Weight: 135.6 kg Current diet: NPO LABS: Sodium: 134 Potassium: 3.6 Chloride: 100 Calcium: 8.2 Corrected Calcium: 10.04 Magnesium: 1.9 CO2: 29 SCr: 2.1 Glucose: 172 Albumin: 1.7 AST: 31 ALT: 26 TPN FORMULA: TPN TYPE: Central Continuous AMINO ACIDS: 110 gm DEXTROSE: 295 gm LIPIDS: -- gm SODIUM CHLORIDE: 80 mEq SODIUM ACETATE: - mEq SODIUM PHOSPHATE: - mmol POTASSIUM CHLORIDE: 30 mEq POTASSIUM ACETATE: - mEq POTASSIUM PHOSPHATE: 15 mmol MAGNESIUM: 8 mEq CALCIUM: 0 mEq INSULIN: - units MULTIPLE VITAMIN: 5 ml TRACE ELEMENTS: 1 ml(s) TPN PLAN: RENEW TPN, SAME RATE. R: Continue TPN Will monitor electrolytes, glucose, and tolerance to TPN. GALEN DE LA CRUZ [facility], 06/19/21 [id number]
[2021-06-19] MEDS: ATORVASTATIN CALCIUM 40 MG TABLET. PO SCH (20:38)
[2021-06-19] MEDS: MONTELUKAST SODIUM 10 MG TABLET. PO SCH (20:38)
[2021-06-19] MEDS ORDERED: [UNRECOGNIZED DRUG - OTHER] IV SCH (22:00)
[2021-06-19] MEDS ORDERED: TOTAL PARENTERAL NUTRITION IV SCH (22:00)
[2021-06-19] MEDS ORDERED: AMINO ACID IV SCH (22:00)
[2021-06-19] MEDS ORDERED: DEXTROSE 70% IV SCH (22:00)
[2021-06-20] VITALS (23 sets, daily range): BP systolic 108–167; BP diastolic 51–88
[2021-06-20] MEDS: DEXMEDETOMIDINE 400 MCG in IV NORMAL SALINE 100ML 96 ML IV PRN ×5 (01:13→21:09)
[2021-06-20] MEDS: PROPOFOL 100 ML IV PRN (04:28)
[2021-06-20] MEDS: METOPROLOL IV PUSH 5 MG/5 ML VIAL. IVP SCH ×4 (05:39→19:41)
[2021-06-20] MEDS: INSULIN LISPRO 300 UNITS/3 ML VIAL. SQ SCH ×8 (05:47→17:46)
--- NOTE | 2021-06-20 06:29 | PDOC ---
[employer] PROGRESS NOTE Date of Service DOS: DATE: 06/20/21 TIME: 06:21 Chief Complaint Chief Complaint Respiratory failure requiring intubation COVID-19 Acute [place] A. fib SIRS Hypertension with hypertensive urgency Hyperlipidemia CKD Diabetes History of bilateral subclavian stenosis History of marijuana use Severe protein calorie malnutrition Trach placed on May 15 GI consulted for PEG evaluation --> patient with a lot of vomiting yesterday thus current NG tube to low intermittent suction Anemia secondary to acute blood loss, possible multiple lab draws and related to advanced CKD Ileus Positive Mariya on 1 out of 4 bottles on blood cultures History of Present Illness History of Present Illness 06/20/2021: Afebrile. Awake on vent with FiO2 40%, PEEP 5; difficult to wean. Accepted to LTAC, but insurance denied. Appeal for discharge to LTAC without PEG in process. Not yet stooling. Continue HD, per nephrology. Continue antibiotics, per ID. Critical care time 30 min spent reviewing charts, reviewing imaging, reviewing labs, and discussion with RN. 06/19/2021: Afebrile, no acute ins overnight. On vent with FiO2 40%, PEEP 5. Patient has been accepted at [facility] pending insurance authorization, however [employer] denying until PEG can be placed. Appeal process has been started as currently patient is poor PEG tube candidate. Still not stooling still with high NG output, 400 mL overnight. General surgery consulted and will defer to GI regarding PEG; favor PEG or surgical G-tube. Will continue to follow nephrology and GI recommendations. Continue daptomycin, cefepime, and micafungin, per ID. Critical care time 30 min spent reviewing charts, reviewing imaging, reviewing labs, and discussion with RN. 06/18/2021: Patient seen in ICU. Afebrile, on vent with FiO2 40%, PEEP 5. At this point his treatment is COVID-19 recovered. Continue treatment with daptomycin, cefepime, and micafungin, per ID. [facility]. Critical care 30 minutes reviewing labs, reviewing charts, reviewing imaging, discussion with RN. 06/17/2021 Patient seen and examined in the ICU Still mechanically ventilated AC/20/500/40/5 of PEEP with 100% saturation Currently has NG to suction (low intermittent suction) Sedated with fentanyl propofol and Precedex Has IV TPN hanging Has admit on his right hand SCDs in place Nieves to bedside drainage He remains critically ill 06/16/2021 Patient seen and examined in the ICU Discussed with RT Discussed with RN Chart reviewed Patient remains mechanically ventilated via tracheostomy AC/20/300/40 percent with 5 of PEEP Satting 98% Sedated with fentanyl Has TPN hanging Has IV microfungi and hanging He remains very critically ill 06/15/2021 Patient seen and examined in the ICU He remains on the vent via tracheostomy AC/20/500/40 percent with 5 of PEEP Setting in the mid 90 Has fentanyl and Precedex for sedation His hemoglobin is running low today at 6.7 I have ordered a unit of blood He is on IV TPN Discussed with RN Chart reviewed He remains critically ill 06/14/2021 patient seen and examined in the ICU chart reviewed discussed with RN he remains on the vent via tracheostomy vent settings as follows AC/20/500/40 percent with 5 of PEEP has mitts on for patient safety has SCDs on Nieves to bedside drainage sedated with fentanyl propofol and Precedex he remains critically ill 06/13/2021 Patient seen and examined in the ICU Chart reviewed Discussed with RN Vent settings as follows Spontaneous respirations with 40% FiO2 10 of pressure support Sedated with fentanyl propofol and Dex Has Nieves to bedside drainage Mitts for patient safety 06/12/2021 Patient seen and examined in the ICU He is currently on dialysis (dialysis nurse states we took 2 L off today and we plan to do daily dialysis for a few days per Dr. Ariza) Has trach shield in place Chart reviewed Discussed with RN He remains critically ill 06/10: Tolerating 30 cc every 3 hours tube feed with minimal residuals overnight. Remains in A. fib. Abdomen appears a bit more distended, soft. Minimally sedated propofol Precedex on [employer] FiO2 40% PEEP 5. CC time 31 min spent in reviewing chart, labs, and images. Discussed with RN and SW. Mr Cunha is a 75 yo male w/ PMHx CAD, HTN, Hyperlipidemia, subclavian steel syndrome, subclavian stenosis s/p left subclavian sent placement complicated by retroperitoneal hematoma s/p evacuation in 08/2015), asthma, BART, CKD, DM2 who presented from home with home health care noted that he was short of breath and valverde with O2 saturations less than 89% as low as 84% not improved with nasal cannulated oxygen placed on CPAP and brought to ED for further care. He was just discharged from the hospital a week ago on April 19, 2021 for abdominal pain and was going for further cardiac testing with outpatient stress testing scheduled on May 28, 2021. Had echocardiogram April 17, 2021 with normal-appearing EF with moderate concentric LVH no significant valvular abnormalities. WBC 20, Hb 10.7, platelets 268, NA 140, K3.8, BUN 21, CR 2.9, glucose 162, albumin 3, troponin I 1.372, NT proBNP 33,318. EKG appears sinus tachycardia rate of 105 bpm with multiple PACs small ST depressions in lead II and V5. TWI in V6. Chest radiograph with diffuse interstitial and alveolar opacities and ET tube 5.8 cm above the leilani. Due to worsening respiratory status ED physician elected to intubate patient. Seen postintubation. Blood pressure little low after propofol bolus, but improved. Significant white frothy sputum per ET tube. Admitted to ICU for further care 04/25: On vent FiO2 50, PEEP 5. Febrile, T-max 103.3. Patient was initiated on cooling blankets. Procalcitonin 0.13. 04/26: COVID-19 positive. Febrile overnight that was managed with cooling blankets. On vent with FiO2 50%, PEEP 5. Per cardiology, elevated troponins likely secondary to demand ischemia; continue heparin drip per cardiology. Continue treatment with remdesivir, steroids, and antibiotics. 04/27: Afebrile. Vent with FiO2 50%, PEEP 5. Troponin 2.8 yesterday; probable type II, demand ischemia. New onset A. fib. Cont heparin gtt and prn digoxin, per cardiology. Contnue treatment with remdesivir, steroids, and prophylactic antibiotics. BG 323 this morning; will add basal insulin. 04/28: Afebrile. FiO2 50%, PEEP 5. Nontunneled HD catheter placed yesterday due to worsening kidney function; eGFR 16 (CKD4). Chest x-ray showed unchanged int erstitial opacities. Continue empiric antibiotics, steroids, and remdesivir. Continue heparin infusion, for new dx A. fib. 04/29: Afebrile, remains on vent at FiO2 45%, PEEP 5. WBC 20.4. Hemodialysis per nephrology. We will continue treatment with empiric antibiotics, remdesivir, and steroids. Continue heparin infusion and supportive care. 04/30: Patient seen and examined in the [place] [id number] ICU. He remains on the vent. AC/20/500/40 5% with 5 PEEP. Currently on dialysis. Has OG feeds running. Has a Nieves to bedside drainage. Sedated with propofol and fentanyl. He remains critically ill 05/01: Patient seen and examined in the [place] [id number] ICU. He is still intubated. AC/20/500/40 percent with 5 of PEEP. In A. fib. Sedated with propofol fentanyl and Versed. Has a heparin drip 05/02: Patient seen and examined in the [place] [id number] ICU. He is sedated with propofol fentanyl and Versed. AC/20/500/40 percent with 5 of PEEP. He remains critically ill 05/03: Patient seen and examined in the [place] [address] ICU. He is still intubated. AC/ 20/500/70 percent with 5 of PEEP. Sedated with fentanyl Versed and propofol. Remains critically ill 05/04: Patient seen and examined in the [place] [id number] ICU. Still intubated. Sedated with propofol and fentanyl. AC/20/500/70 percent with 5 of PEEP. On dialysis tremaine vargas 05/05: Patient seen and examined in the [place] [address] ICU. He remains on the vent. AC/20/500/40 percent with 5 of PEEP. He remains critically ill 05/06: Patient seen and examined in the [place] [address] ICU. He remains mechanically ventilated. AC/20/500/40 05/07: Patient seen and examined in the [place] [address] ICU. He remains mechanically ventilated. ILDA on CKD - ATN 2/2 sepsis/ Hypotension,UOP good,on IV Lasix ; requiring dialysis, . AC/20/500/40 percent with 5 of PEEP. Sedated with propofol Dex and fentanyl 05/08: Currently on 40%, 5 of PEEP. now on cardene gtt. Patient seen and examined in the [place] [id number] ICU. 4: VENT [id number]%, 5 of PEEP. Mild pulmonary edema with new small right pleural effusion and basilar opacities. Change central line and send cath tip for cultures. 85: VENT [id number]%, 5 of PEEP. Mild pulmonary edema with new small right pleural effusion and basilar opacities. Patient seen and examined in the [place] [id number] ICU 05/11: Continue iv cefepime , add zyvox, sputum culture 05/12: Continue iv cefepime , add zyvox, sputum culture. VENT %, 5 of PEEP. now on cardene gtt prn 05/13: Did not tolerate sedation vacation 05/11/2021, profoundly hypertensive. ABG/CXR--changes as needed. Continue iv cefepime , add zyvox, sputum culture. VENT %, 5 of PEEP. Mild pulmonary edema with new small right pleural effusion and basilar opacities. now on cardene gtt prn 05/14: Patient seen and examined at bedside. Remains intubated and sedated planning for tracheostomy tomorrow. Continue current respiratory support; robin nue antibiotics, continue sedation. Follow recommendations of pulmonary, renal, and infectious disease 05/15: Patient seen and examined at bedside. Remains intubated and sedated planning for tracheostomy today. Continue current respiratory support; continue antibiotics, continue sedation. 05/16: Patient seen and examined at bedside. Underwent tracheostomy yesterday today tolerated well. When seen this morning patient is still notably sedated respiratory status is stable. measures. 05/17: Patient seen and examined at bedside. Attempting to wean sedation. Patient with some diarrhea. Per infectious disease will give erythromycin eye ointment for eye lesions. Nephro and pulm also following. 05/18: Patient seen and examined at bedside. Attempting to increase tube feeds, GI consulted for PEG evaluation. Otherwise no major clinical changes. Continue to wean sedation. Plan of care discussed with bedside nurse. 05/19: Patient seen and examined at bedside. Apparently had a fair bit of vomiting overnight. GI following for PEG evaluation. Otherwise patient remained stable. Plan of care discussed with bedside nurse. 05/20: Patient seen and examined at bedside. Again had multiple bouts of vomiting yesterday. GI continuing to follow for PEG evaluation although on hold right now due to persistent vomiting. Leukocytosis 05/21: Afebrile, no acute events overnight. Remains on vent, FiO2 40%, PEEP 5. S/P tracheostomy on 05/15/2021. KUB on 05/19/2021 consistent with ileus. Per GI, continue NG tube to suction and parenteral nutrition for now. Continue IV antibiotics, per ID. Continue hemodialysis 05/22: Afebrile. On vent with FiO2 40%, PEEP 5. Excessive NG output. Continue NG tube to suction for now; PEG on hold for now. Continue hemodialysis, per nephrology. Continue IV antibiotics, per ID. 05/23: Afebrile. Vent with FiO2 40%, PEEP 5. NG tube for 635 mL out overnight. Continue NG tube to suction. HD 05/24: No acute events overnight. Afebrile. NG tube output has decreased. Kidney function appears stable. Continue IV antibiotics, per ID. Patient has been accepted to [facility], pending insurance authorization. 05/25: Afebrile. On vent with FiO2 40%, PEEP 5. Hemoglobin 8.6 yesterday, hemoglobin 7.3 today. Reportedly had HD yesterday. Continue IV antibiotics, per ID; WBC possibly reactive to ileus. Has been accepted at [facility]; transfer pending, but will need PEG tube placement prior. 05/26: Afebrile. On vent with FiO2 40%, PEEP 5. Hemoglobin 7.3 yesterday, and hemoglobin 7.2 today; continue to trend. Leukocytosis slightly improved, WBC 12.9 today. Has been accepted at [facility]; transfer pending, but will need PEG tube placement prior. 05/27: Afebrile. On vent with FiO2 40%, PEEP 5. Hemoglobin remains stable at 7.2 today; continue to trend. WBC 13.4. Kidney function appears to be stabilized. LTAC transfer is pending PEG tube placement. Off meropenem; will continue to monitor. Kidney function appears to be stable. 05/28: No acute events overnight. Patient doing well on trach with settings of 40% FiO2 and PEEP of 8. Pending PEG placement after ileus is resolved will defer this to GI for timing of PEG placement.. Also pending tunneled catheter placement for dialysis. 05/29: No acute events or night. Patient tolerating trach collar humidified. Saturating at 99%. Pending PICC line placement and IJ central line removal. Per ID. Possibly in not needing HD. Making urine adequately with Lasix as needed. 05/30: No acute events overnight. Patient doing well on trach collar. Hemoglobin decreased down to 6.7 pending 1 unit PRBC transfusion. Restarted on linezolid and Flagyl and cefepime. Pending PICC placement and central line IJ removal. 05/31: No acute events overnight. Patient saturating 100% on trach collar. Hemoglobin improved after 1 unit PRBC transfusion to 8.4. Patient is currently undergoing dialysis and his labs have been stable. Patient's chart, labs, imag es were reviewed and discussed with RN 06/01: No acute events overnight. Patient saturating well on trach collar. Patient seen and examined bedside and on HD. Hemoglobin trended down from 8.4- 7.3. Afebrile in the last 24 hours. Patient's chart, labs, images were reviewed and discussed with RN 06/02: No acute events overnight. Patient saturating 100% on trach collar. Tmax 100.3. Yeast 1 of 4 bottles on blood cultures. Plan to remove central line and dialysis catheter. Family consideration for tunneled catheterization possibly hold. Micafungin was started per ID. 06/03: No acute events overnight. Left IJ placed by IR. Defer to ID for antibiotic management for cultures of the catheter tip and yeast. 06/04: No overnight events afebrile. Sedated on propofol and Precedex. On vent with tracheostomy PEEP 5 FiO2 40%. Being treated for fungemia and receiving TPN. Left IJ CVC functioning well. HD catheter right. 06/05: Afebrile. Still requiring minimal sedation on propofol and Precedex. Requiring vent support via trach PEEP five FiO2 40%. KUB with less gaseous distention. No BM but bowel sounds are audible. 06/06: Afebrile. On minimal sedation with propofol and Precedex and vent support via trach PEEP 5 FiO2 40%. Still in A. fib on telemetry. Catheter tip no growth to date sputum with Mariya. Repeat blood cultures no growth to date 06/07: Afebrile. On minimal sedation propofol and Precedex with for trach PEEP 5 FiO2 40%. He is to be in A. fib. Hb 6.9. Will transfuse with dialysis today. Did have stool smear overnight 06/08: Afebrile. On minimal sedation propofol Precedex tolerated pressure support yesterday back on AC PEEP 5 FiO2 40% use more alert trying to pull out his tracheostomy successfully disconnected himself from the vent. Not easily redirectable. Admits for safety. In A. fib. Labs pending 06/09: Vomited large amount of tube feeding overnight and NG attached to low sucti on. Remains in A. fib. Minimal sedation with propofol and Precedex. Tolerated pressure support back on AC FiO2 40% PEEP 5 getting dialysis currently. 06/11/2021: Patient seen and examined in the ICU. Mitts on for patient safety. Sedated with dexmedetomidine, propofol, and fentanyl. IV TPN hanging. NG tube running at 10 mL per hour. Currently on trach shield 10L. Discussed with RN. Tremaine naidu reviewed. Vitals/I&O Vitals/I&O: Vital Signs Date Time Temp Pulse Resp B/P (MAP) Pulse Ox O2 Delivery O2 Flow Rate FiO2 06/20/21 05:39 66 134/74 06/20/21 05:35 100 Ventilator 06/20/21 05:00 28 06/20/21 04:00 98.4 98.4 06/20/21 00:57 10.0 I & O 06/19/21 06/19/21 06/20/21 15:00 23:00 07:00 Intake Total 1039 ml 1242 ml Output Total 178 ml 115 ml 225 ml Balance -178 ml 924 ml 1017 ml Physical Exam Physical Exam: GENERAL: awake and comfortable on vent HEENT: Normocephalic, atraumatic, redness and erythema of both eyes improved, NG tube present NECK: right dialysis catheter present clean,Lt neck central line changed ( 05/11) Trach + HEART: S1, S2.no gallop LUNGS: Decreased breath sounds. ABDOMEN: Less distended, bowel sounds present GENITOURINARY: Nieves in place. EXTREMITIES: Edema present. DERMATOLOGIC: Warm, dry, no generalized rash. NEUROLOGIC: Opens eyes PICC line clean General: Alert, No acute distress Heart: Regular rate, Normal S1, Normal S2, No murmurs, Gallops Lungs: Clear Abdomen: Soft, No tenderness, Other (obese) Extremities: Other (EDEMA) Skin: No rashes, No breakdown, No significant lesion Labs Labs: Laboratory Tests Test 06/19/21 11:57 06/19/21 17:49 06/20/21 00:12 06/20/21 05:45 Glucose (Fingerstick) 175 mg/dL (70-99) 158 mg/dL (70-99) 101 mg/dL (70-99) 139 mg/dL (70-99) Assessment and Plan Assessmemt and Plan Problems Medical Problems: (1) Elevated troponin Status: Acute (2) Person under investigation for COVID-19 Status: Acute (3) Pulmonary edema Status: Acute Comment Review of Relevant I have reviewed the following items juanita (where applicable) has been applied. Medications: Current Medications Medications (Trade) Dose Ordered Sig/Jodie Route PRN Reason Start Time Stop Time Status Last Admin Dose Admin Bisacodyl (Dulcolax Supp) 10 mg 1X ONCE TX 06/19/21 09:45 06/19/21 09:46 DC 06/19/21 09:45 Sodium Chloride 80 meq/Potassium Chloride 30 meq/ Potassium Phosphate 15 mmol/ Magnesium Sulfate 8 meq/ Multivitamins 5 ml/Zinc/Copper/ Manganese/ Selenium 1 ml/ Total Parenteral Nutrition/Amino Acids/Dextrose 1,440 ml @ 60 mls/hr TPN CONT IV 06/19/21 22:00 06/20/21 21:59 06/19/21 22:27 Justifications for Admission General Conditions Altered mental status?: Yes Justification of admission: Patient has tachycardia (> 100 beats per minute) or hypotension (SBP < 90 mm Hg) leading to inadequate systemic perfusion as indicated by severe/persistent altered mental status. Other Justification ILDA SARAH BETH CARRASCO MD Jun 20, 2021 06:29
[2021-06-20 06:50] LABS: BASO # 0.2 x10^3/uL (0.0-0.2); BASO % 1 % (0-3); EOS # 1.3 x10^3/uL (0.0-0.7); EOS % 10 % (0-3); HEMATOCRIT 23.5 % (39.0-53.0); HEMOGLOBIN 7.7 g/dL (13.0-17.5); LYMPH # 3.1 x10^3/uL (1.0-4.8); LYMPH % 24 % (24-48); MEAN CORPUSCULAR HEMOGLOBIN 28 pg (25-35); MEAN CORPUSCULAR HGB CONC 33 g/dL (31-37); MEAN CORPUSCULAR VOLUME 85 fL (79-100); MONO # 1.5 x10^3/uL (0.0-1.1); MONO % 11 % (0-9); NEUT # 6.9 x10^3/uL (1.8-7.7); NEUT % 54 % (31-73); PLATELET COUNT 291 x10^3/uL (140-400); RED BLOOD COUNT 2.77 x10^6/uL (4.30-5.70); RED CELL DISTRIBUTION WIDTH 17.4 % (11.5-14.5); WHITE BLOOD COUNT 12.9 x10^3/uL (4.0-11.0)
[2021-06-20 06:56] LABS: CALCIUM 8.6 mg/dL (8.5-10.1); CREATININE 2.5 mg/dL (0.7-1.3); GFR 30.7; POTASSIUM 3.8 mmol/L (3.5-5.1)
[2021-06-20] MEDS: PANTOPRAZOLE IV PUSH 40 MG VIAL. IVP SCH (07:26)
[2021-06-20] MEDS: ASPIRIN CHEWABLE 81 MG TABLET. PO SCH (07:28)
--- NOTE | 2021-06-20 08:20 | PDOC ---
Infectious Disease Note Subjective Subjective Patient is awake on ventilator ROS ROS no n/v/d/sob Vital Sign Vital Signs Vital Signs Date Time Temp Pulse Resp B/P (MAP) Pulse Ox O2 Delivery O2 Flow Rate FiO2 06/20/21 08:00 98.3 62 19 136/77 (96) 99 Tracheal Collar 98.3 06/20/21 00:57 10.0 Physical Exam PHYSICAL EXAM GENERAL: awake and comfortable on vent HEENT: Normocephalic, atraumatic, redness and erythema of both eyes improved, NG tube present NECK: right dialysis catheter present clean,Lt neck central line changed ( 05/11) Trach + HEART: S1, S2.no gallop LUNGS: Decreased breath sounds. ABDOMEN: Less distended, bowel sounds present GENITOURINARY: Nieves in place. EXTREMITIES: Edema present. DERMATOLOGIC: Warm, dry, no generalized rash. NEUROLOGIC: Opens eyes PICC line clean Labs Lab Laboratory Tests Test 06/19/21 11:57 06/19/21 17:49 06/20/21 00:12 06/20/21 05:45 Glucose (Fingerstick) 175 mg/dL (70-99) 158 mg/dL (70-99) 101 mg/dL (70-99) 139 mg/dL (70-99) Test 06/20/21 06:00 White Blood Count 12.9 x10^3/uL (4.0-11.0) Red Blood Count 2.77 x10^6/uL (4.30-5.70) Hemoglobin 7.7 g/dL (13.0-17.5) Hematocrit 23.5 % (39.0-53.0) Mean Corpuscular Volume 85 fL (79-100) Mean Corpuscular Hemoglobin 28 pg (25-35) Mean Corpuscular Hemoglobin Concent 33 g/dL (31-37) Red Cell Distribution Width 17.4 % (11.5-14.5) Platelet Count 291 x10^3/uL (140-400) Neutrophils (%) (Auto) 54 % (31-73) Lymphocytes (%) (Auto) 24 % (24-48) Monocytes (%) (Auto) 11 % (0-9) Eosinophils (%) (Auto) 10 % (0-3) Basophils (%) (Auto) 1 % (0-3) Neutrophils # (Auto) 6.9 x10^3/uL (1.8-7.7) Lymphocytes # (Auto) 3.1 x10^3/uL (1.0-4.8) Monocytes # (Auto) 1.5 x10^3/uL (0.0-1.1) Eosinophils # (Auto) 1.3 x10^3/uL (0.0-0.7) Basophils # (Auto) 0.2 x10^3/uL (0.0-0.2) Sodium Level 135 mmol/L (136-145) Potassium Level 3.8 mmol/L (3.5-5.1) Chloride Level 101 mmol/L (98-107) Carbon Dioxide Level 26 mmol/L (21-32) Anion Gap 8 (6-14) Blood Urea Nitrogen 49 mg/dL (8-26) Creatinine 2.5 mg/dL (0.7-1.3) Estimated GFR (Cockcroft-Gault) 30.7 Glucose Level 141 mg/dL (70-99) Calcium Level 8.6 mg/dL (8.5-10.1) Micro BC neg Objective Assessment Fungemia May 30, 2021, C parapsilosis, 06/02 neg RT IJ central line removed cath tip sent for cult 1. Febrile illness resolved 2. Leukocytosis, was on steroids,ileus could contribute,improving 3. COVID-19 pneumonia. 4. Acute hypoxic respiratory failure status post intubation.Now S/P Trach 05/15 Pleural effusion 5. Congestive heart failure, acute on chronic. 6. Acute kidney injury on chronic kidney disease on hemodialysis. 7. Diabetes mellitus 2. 8. Atrial fibrillation. 9. Anemia. 10. Protein-calorie malnutrition. 11. Hypertention 12.Hyponatremia 13. Ileus, Bowel obstruction Peg TF on hold, OG to LIS 14.on PPN 15.Mild to Moderate Pleural effusion 16.Lt eye conjunctivitis resolved Plan Plan of Care Reculture blood so far negative Cont Cefepime Dapto and micafungin Monitor labs and cultures Continue supportive care will start scaling down Discussed with nursing staff JAD RIVERO MD Jun 20, 2021 08:20
[2021-06-20] MEDS: NYSTATIN TOPICAL POWDER 15GM BOTTLE. TP SCH ×2 (09:05→21:01)
[2021-06-20] MEDS: CEFEPIME HCL IV Push 1 GM VIAL. IVP SCH (09:05)
--- NOTE | 2021-06-20 09:13 | PDOC ---
DATE OF SERVICE DATE: 06/20/21 TIME: 09:09 SUBJECTIVE ROS Patient is awake on ventilator, stable OBJECTIVE Vital Signs Vital Signs Date Time Temp Pulse Resp B/P (MAP) Pulse Ox O2 Delivery O2 Flow Rate FiO2 06/20/21 09:04 65 144/69 06/20/21 08:00 98.3 19 99 Tracheal Collar 98.3 06/20/21 00:57 10.0 I & 0 Intake and Output 06/20/21 07:00 Intake Total 2281 ml Output Total 518 ml Balance 1763 ml IV Total 2281 ml Output Urine Total 518 ml PHYSICAL EXAM Physical Exam GENERAL: awake on vent HEENT: NG tube present NECK: right dialysis catheter present , Trach + HEART: S1, S2.no gallop LUNGS: Decreased breath sounds. ABDOMEN: bowel sounds present GENITOURINARY: Nieves in place. EXTREMITIES: trace edema DERMATOLOGIC: no generalized rash. NEUROLOGIC: Opens eyes DIAGNOSIS/ASSESSMENT Assessment & Plan ILDA-ATN- requiring dialysis; , Oliguric , currently on MWF schedule . Dialysis today, discussed treatment plan with cream maker Access - has temp HDC ; if no renal recovery will need Tunneled HDC . Re-eval next week . Bhavesh RN Fungemia-on antifungal per ID HypoNatremia- Resolved HypoKalemia - replace CKD stage 3 Acute Hypoxic Resp failure - S/P Trach COVID 19 Pneumonia Anemia - Hgb stable COMMENT/RELEVANT DATA Meds Current Medications Medications (Trade) Dose Ordered Sig/Jodie Start Time Stop Time Status Last Admin Dose Admin Acetaminophen (Tylenol Supp) 650 mg PRN Q6HRS PRN 05/29/21 16:15 06/17/21 08:12 650 MG Acetaminophen (Tylenol) 650 mg PRN Q6HRS PRN 04/24/21 14:00 Cancel Albumin Human 200 ml @ 200 mls/hr 1X PRN PRN 06/18/21 15:00 06/18/21 20:59 DC Amiodarone HCl (Cordarone) 200 mg DAILY 04/28/21 09:00 05/22/21 16:27 DC 05/21/21 11:07 200 MG Amiodarone HCl 150 mg/Dextrose 103 ml @ 618 mls/hr 1X ONCE 04/27/21 02:30 04/27/21 02:39 DC 04/27/21 02:30 618 MLS/HR Amiodarone HCl 450 mg/Dextrose 259 ml @ 0 mls/hr 1X ONCE 05/22/21 16:30 05/22/21 16:34 DC 05/22/21 16:59 33 MLS/HR Amlodipine Besylate (Norvasc) 10 mg DAILY 05/16/21 09:00 06/20/21 09:04 10 MG Aspirin (Aspirin Chewable) 81 mg DAILYWBKFT 05/03/21 10:00 06/15/21 09:54 81 MG Aspirin (Ecotrin) 81 mg DAILYWBKFT 04/25/21 08:00 05/03/21 09:56 DC 05/02/21 07:20 81 MG Atorvastatin Calcium (Lipitor) 80 mg QHS 04/24/21 21:00 06/19/21 20:38 80 MG Bisacodyl (Dulcolax Supp) 10 mg 1X ONCE 06/19/21 09:45 06/19/21 09:46 DC 06/19/21 09:45 10 MG Bupivacaine HCl/ Epinephrine Bitart (Sensorcain-Epi 0.5%-1:[id number] Mpf) 30 ml STK-MED ONCE 05/15/21 07:05 05/15/21 07:06 DC Carvedilol (Coreg) 3.125 mg BIDWMEALS 04/24/21 17:00 04/25/21 15:42 DC 04/25/21 09:23 3.125 MG Cefepime HCl (Maxipime) 1 gm DAILY 06/15/21 09:30 06/20/21 09:05 1 GM Cellulose (Surgicel Fibrillar 1x2) 1 each STK-MED ONCE 05/15/21 07:05 05/15/21 07:06 DC 05/15/21 09:40 1 EACH Chlorhexidine Gluconate (Peridex) 15 ml BID 04/24/21 21:00 04/25/21 11:19 DC 04/24/21 20:49 15 ML Daptomycin 600 mg/ Sodium Chloride 50 ml @ 100 mls/hr Q48H 05/04/21 15:00 05/06/21 08:07 DC 05/04/21 15:24 100 MLS/HR Daptomycin 620 mg/ Sodium Chloride 50 ml @ 100 mls/hr Q48H 06/15/21 11:00 06/19/21 11:19 100 MLS/HR Dexamethasone Sodium Phosphate (Decadron) 4 mg STK-MED ONCE 05/15/21 07:53 05/15/21 07:53 DC Dexmedetomidine HCl 400 mcg/ Sodium Chloride 100 ml @ 0 mls/hr CONT PRN 05/04/21 10:30 06/20/21 07:35 19.7 MLS/HR Dextrose (Dextrose 50%-Water Syringe) 12.5 gm PRN Q15MIN PRN 06/09/21 16:30 UNV Digoxin (Lanoxin) 250 mcg 1X ONCE 04/26/21 13:00 04/26/21 13:05 DC 04/26/21 15:02 250 MCG Ephedrine Sulfate (ePHEDrine PF IN SALINE SYRINGE) 50 mg STK-MED ONCE 05/15/21 09:15 05/15/21 09:15 DC Erythromycin (Romycin) 0.25 inch BID 05/17/21 12:00 05/25/21 13:24 DC 05/25/21 07:43 0.25 INCH Etomidate (Amidate) 20 mg STK-MED ONCE 04/24/21 13:38 04/24/21 13:38 DC Fentanyl Citrate 30 ml @ 0 mls/hr CONT PRN 04/24/21 14:00 06/19/21 23:13 50 MLS/HR Fentanyl Citrate (Fentanyl 2ml Vial) 25 mcg PRN Q1HR PRN 04/24/21 14:00 05/17/21 16:12 25 MCG Fluconazole/ Sodium Chloride 100 ml @ 100 mls/hr Q24H 06/05/21 09:00 06/15/21 08:53 DC 06/14/21 10:36 100 MLS/HR Furosemide (Lasix) 80 mg TID 05/27/21 09:00 06/01/21 11:08 DC 05/31/21 20:10 80 MG Heparin Sodium (Porcine) (Heparin Sodium) 5,000 unit Q8HRS 05/18/21 10:00 05/30/21 11:07 DC 05/30/21 06:07 5,000 UNIT Heparin Sodium/ Dextrose 250 ml @ 0 mls/hr CONT PRN 04/24/21 16:45 05/01/21 12:32 DC 05/01/21 05:10 10 MLS/HR Hydralazine HCl (Apresoline Inj) 10 mg PRN QID PRN 05/22/21 16:30 06/11/21 21:08 10 MG Hydralazine HCl (Apresoline) 25 mg QID 05/10/21 10:00 05/22/21 16:27 DC 05/21/21 17:24 25 MG Info (Anti-Coagulation Monitoring By Pharmacy) 1 each PRN DAILY PRN 04/25/21 13:00 05/02/21 07:36 DC 04/26/21 08:51 1 EACH Info (PHARMACY MONITORING -- do not chart) 1 each PRN DAILY PRN 06/18/21 15:00 UNV Info (Tpn Per Pharmacy) 1 each PRN DAILY PRN 05/22/21 10:00 06/19/21 13:38 1 EACH Insulin Glargine (Lantus Syringe) 20 unit BID 05/31/21 09:00 06/19/21 20:39 20 UNIT Insulin Human Lispro (HumaLOG) 3 units Q6HRS 06/09/21 18:00 06/19/21 17:52 3 UNITS Labetalol HCl (Normodyne Iv Push) 20 mg PRN Q2HR PRN 05/01/21 12:30 05/27/21 15:43 20 MG Lidocaine HCl (Buffered Lidocaine 1%) 6 ml 1X ONCE 06/04/21 09:30 06/04/21 09:31 DC 06/04/21 09:34 2 ML Lidocaine HCl (Lidocaine Pf 2% Vial) 5 ml STK-MED ONCE 05/15/21 07:53 05/15/21 07:53 DC Linezolid/Dextrose 300 ml @ 300 mls/hr Q12HR 05/31/21 09:00 UNV Lorazepam (Ativan Inj) 0.25 mg PRN Q4HRS PRN 05/21/21 09:00 06/02/21 04:30 0.25 MG Magnesium Sulfate 50 ml @ 25 mls/hr 1X ONCE 06/02/21 08:45 06/02/21 10:44 DC 06/02/21 09:53 25 MLS/HR Meropenem 500 mg/ Sodium Chloride 50 ml @ 100 mls/hr DAILY 05/23/21 09:00 05/25/21 11:55 DC 05/25/21 07:42 100 MLS/HR Methylnaltrexone [place] (Relistor) 12 mg 1X ONCE 06/10/21 12:00 06/10/21 12:01 DC 06/10/21 13:02 12 MG Metoprolol Tartrate (Lopressor Vial) 5 mg Q6HRS 04/25/21 18:00 06/20/21 05:39 5 MG Metronidazole 100 ml @ 100 mls/hr Q12HR 05/30/21 09:00 06/05/21 07:34 DC 06/04/21 20:32 100 MLS/HR Micafungin Sodium 100 mg/Dextrose 100 ml @ 100 mls/hr Q24H 06/15/21 10:00 06/19/21 10:05 100 MLS/HR Midazolam HCl (Versed) 5 mg 1X ONCE 05/24/21 15:15 05/24/21 15:16 DC 05/24/21 15:20 5 MG Montelukast Sodium (Singulair) 10 mg HS 04/24/21 21:00 06/19/21 20:38 10 MG Multi-Ingred Cream/Lotion/Oil/ Oint (Artificial Tears Eye Ointment) 1 danielito PRN Q1HR PRN 05/07/21 16:00 05/10/21 20:51 1 DANIELITO Nicardipine HCl 50 mg/Sodium Chloride 250 ml @ 25 mls/hr CONT PRN 05/06/21 18:45 05/20/21 19:47 37.5 MLS/HR Norepinephrine Bitartrate 8 mg/ Dextrose 258 ml @ 25.852 mls/ hr CONT PRN 05/02/21 21:00 05/09/21 06:10 DC 05/02/21 21:22 25.852 MLS/HR Nystatin (Nystop) 1 danielito BID 05/16/21 21:00 06/20/21 09:05 1 DANIELITO Ondansetron HCl (Zofran) 4 mg STK-MED ONCE 05/15/21 07:53 05/15/21 07:53 DC Pantoprazole Sodium (PROTONIX VIAL for IV PUSH) 40 mg DAILYAC 04/26/21 09:30 06/20/21 07:26 40 MG Phenylephrine HCl (PHENYLEPHRINE in 0.9% NACL PF) 1 mg STK-MED ONCE 05/15/21 07:51 05/15/21 07:51 DC Potassium Bicarbonate (Potassium Effervescent Tablet) 40 meq 1X ONCE 05/19/21 08:30 05/19/21 08:31 DC 05/19/21 08:50 40 MEQ Potassium Chloride/Water 100 ml @ 100 mls/hr Q1H 05/23/21 10:45 05/23/21 12:44 DC 05/23/21 13:17 100 MLS/HR Potassium Phosphate 10 mmol/ Sodium Chloride 103.3333 ml @ 51.667 m... Q2H 06/01/21 12:00 06/01/21 15:59 DC 06/01/21 13:24 51.667 MLS/HR Potassium Phosphate 13.6 mmol/Sodium Chloride 254.5333 ml @ 127.... 1X ONCE 06/08/21 14:00 06/08/21 15:59 DC 06/08/21 15:21 127.267 MLS/HR Potassium Phosphate 20 mmol/ Sodium Chloride 256.6667 ml @ 62.5 mls/hr 1X ONCE 05/13/21 12:15 05/13/21 16:21 UNV Potassium Phosphate 30 mmol/ Sodium Chloride 260 ml @ 62.5 mls/hr 1X ONCE 05/13/21 12:15 05/13/21 16:24 UNV Prochlorperazine Edisylate (Compazine) 5 mg PACU PRN PRN 05/15/21 06:00 05/16/21 05:59 DC Propofol 100 ml @ 4.185 mls/ hr CONT PRN 06/02/21 09:30 06/20/21 04:28 8.37 MLS/HR Propofol (Diprivan) 200 mg STK-MED ONCE 05/15/21 07:53 05/15/21 07:53 DC Remdesivir 100 mg/ Sodium Chloride 230 ml @ 460 mls/hr Q24H 04/26/21 17:30 04/29/21 17:59 DC 04/29/21 13:51 460 MLS/HR Remdesivir 200 mg/ Sodium Chloride 210 ml @ 210 mls/hr 1X ONCE 04/25/21 17:30 04/25/21 18:29 DC 04/25/21 17:09 210 MLS/HR Ringer's Solution 1,000 ml @ 30 mls/hr Q24H 05/15/21 06:00 05/15/21 17:59 DC 05/15/21 07:04 30 MLS/HR Rocuronium [place] (Zemuron) 50 mg STK-MED ONCE 05/15/21 07:06 05/15/21 07:07 DC Sodium Bicarbonate (Sodium Bicarb Adult 8.4% Syr) 50 meq 1X ONCE 04/27/21 09:45 04/27/21 09:46 DC 04/27/21 09:50 50 MEQ Sodium Chloride (Normal Saline Flush) 10 ml 1X PRN PRN 06/18/21 15:00 06/18/21 22:00 DC Sodium Chloride 80 meq/Potassium Chloride 10 meq/ Potassium Phosphate 10 mmol/ Magnesium Sulfate 8 meq/ Multivitamins 5 ml/Zinc/Copper/ Manganese/ Selenium 1 ml/ Total Parenteral Nutrition/Amino Acids/Dextrose/ Fat Emulsion Intravenous 1,440 ml @ 60 mls/hr TPN CONT 06/13/21 22:00 06/14/21 21:59 DC 06/13/21 22:00 60 MLS/HR Sodium Chloride 80 meq/Potassium Chloride 20 meq/ Potassium Phosphate 13.6 mmol/Magnesium Sulfate 8 meq/ Multivitamins 5 ml/Zinc/Copper/ Manganese/ Selenium 1 ml/ Total Parenteral Nutrition/Amino Acids/Dextrose/ Fat Emulsion Intravenous 1,440 ml @ 60 mls/hr TPN CONT 06/16/21 22:00 06/17/21 21:59 DC 06/16/21 21:53 60 MLS/HR Sodium Chloride 80 meq/Potassium Chloride 20 meq/ Potassium Phosphate 15 mmol/ Magnesium Sulfate 8 meq/ Multivitamins 5 ml/Zinc/Copper/ Manganese/ Selenium 1 ml/ Total Parenteral Nutrition/Amino Acids/Dextrose/ Fat Emulsion Intravenous 1,440 ml @ 60 mls/hr TPN CONT 06/17/21 22:00 06/18/21 21:59 DC 06/17/21 22:11 60 MLS/HR Sodium Chloride 80 meq/Potassium Chloride 30 meq/ Potassium Phosphate 10 mmol/ Magnesium Sulfate 8 meq/ Multivitamins 5 ml/Zinc/Copper/ Manganese/ Selenium 1 ml/ Total Parenteral Nutrition/Amino Acids/Dextrose/ Fat Emulsion Intravenous 1,440 ml @ 60 mls/hr TPN CONT 06/12/21 22:00 06/13/21 21:59 DC 06/12/21 21:56 60 MLS/HR Sodium Chloride 80 meq/Potassium Chloride 30 meq/ Potassium Phosphate 15 mmol/ Magnesium Sulfate 8 meq/ Multivitamins 5 ml/Zinc/Copper/ Manganese/ Selenium 1 ml/ Total Parenteral Nutrition/Amino Acids/Dextrose 1,440 ml @ 60 mls/hr TPN CONT 06/19/21 22:00 06/20/21 21:59 06/19/21 22:27 60 MLS/HR Sodium Chloride 90 meq/Potassium Chloride 25 meq/ Magnesium Sulfate 10 meq/Calcium Gluconate 5 meq/ Multivitamins 5 ml/Zinc/Copper/ Manganese/ Selenium 1 ml/ Total Parenteral Nutrition/Amino Acids/Dextrose/ Fat Emulsion Intravenous 1,080 ml @ 45 mls/hr TPN CONT 05/22/21 22:00 05/23/21 21:59 DC 05/22/21 21:22 45 MLS/HR Sodium Chloride 90 meq/Potassium Chloride 30 meq/ Potassium Phosphate 13.6 mmol/Magnesium Sulfate 10 meq/ Multivitamins 5 ml/Zinc/Copper/ Manganese/ Selenium 1 ml/ Total Parenteral Nutrition/Amino Acids/Dextrose/ Fat Emulsion Intravenous 1,200 ml @ 50 mls/hr TPN CONT 06/01/21 22:00 06/02/21 21:59 DC 06/01/21 21:33 50 MLS/HR Sodium Chloride 90 meq/Potassium Chloride 30 meq/ Potassium Phosphate 13.6 mmol/Magnesium Sulfate 12 meq/ Multivitamins 5 ml/Zinc/Copper/ Manganese/ Selenium 1 ml/ Total Parenteral Nutrition/Amino Acids/Dextrose 1,200 ml @ 50 mls/hr TPN CONT 06/07/21 22:00 06/08/21 21:59 DC 06/07/21 22:16 50 MLS/HR Sodium Chloride 90 meq/Potassium Chloride 30 meq/ Potassium Phosphate 13.6 mmol/Magnesium Sulfate 12 meq/ Multivitamins 5 ml/Zinc/Copper/ Manganese/ Selenium 1 ml/ Total Parenteral Nutrition/Amino Acids/Dextrose/ Fat Emulsion Intravenous 1,440 ml @ 60 mls/hr TPN CONT 06/11/21 22:00 06/12/21 21:59 DC 06/11/21 22:13 60 MLS/HR Sodium Chloride 90 meq/Potassium Chloride 50 meq/ Magnesium Sulfate 10 meq/Calcium Gluconate 5 meq/ Multivitamins 5 ml/Zinc/Copper/ Manganese/ Selenium 1 ml/ Total Parenteral Nutrition/Amino Acids/Dextrose/ Fat Emulsion Intravenous 960 ml @ 40 mls/hr TPN CONT 05/27/21 22:00 05/28/21 21:59 DC 05/27/21 22:03 40 MLS/HR Sodium Chloride 90 meq/Potassium Chloride 50 meq/ Potassium Phosphate 5 mmol/ Magnesium Sulfate 10 meq/Calcium Gluconate 5 meq/ Multivitamins 5 ml/Zinc/Copper/ Manganese/ Selenium 1 ml/ Total Parenteral Nutrition/Amino Acids/Dextrose/ Fat Emulsion Intravenous 1,200 ml @ 50 mls/hr TPN CONT 05/30/21 22:00 05/31/21 21:59 DC 05/30/21 21:57 50 MLS/HR Sodium Phosphate 15 mmol/Dextrose 105 ml @ 105 mls/hr 1X ONCE 05/29/21 11:00 05/29/21 11:59 DC 05/29/21 11:53 105 MLS/HR Sodium Phosphate 15 mmol/Sodium Chloride 105 ml @ 105 mls/hr 1X ONCE 05/29/21 11:45 05/29/21 12:44 UNV Succinylcholine Chloride (Anectine) 200 mg STK-MED ONCE 04/24/21 13:38 04/24/21 13:38 DC Vecuronium [place] (Norcuron Bolus) 6 mg PRN Q6HRS PRN 04/30/21 11:15 05/14/21 09:12 6 MG Lab Laboratory Tests Test 06/19/21 11:57 06/19/21 17:49 06/20/21 00:12 06/20/21 05:45 Glucose (Fingerstick) 175 mg/dL (70-99) 158 mg/dL (70-99) 101 mg/dL (70-99) 139 mg/dL (70-99) Test 06/20/21 06:00 White Blood Count 12.9 x10^3/uL (4.0-11.0) Red Blood Count 2.77 x10^6/uL (4.30-5.70) Hemoglobin 7.7 g/dL (13.0-17.5) Hematocrit 23.5 % (39.0-53.0) Mean Corpuscular Volume 85 fL (79-100) Mean Corpuscular Hemoglobin 28 pg (25-35) Mean Corpuscular Hemoglobin Concent 33 g/dL (31-37) Red Cell Distribution Width 17.4 % (11.5-14.5) Platelet Count 291 x10^3/uL (140-400) Neutrophils (%) (Auto) 54 % (31-73) Lymphocytes (%) (Auto) 24 % (24-48) Monocytes (%) (Auto) 11 % (0-9) Eosinophils (%) (Auto) 10 % (0-3) Basophils (%) (Auto) 1 % (0-3) Neutrophils # (Auto) 6.9 x10^3/uL (1.8-7.7) Lymphocytes # (Auto) 3.1 x10^3/uL (1.0-4.8) Monocytes # (Auto) 1.5 x10^3/uL (0.0-1.1) Eosinophils # (Auto) 1.3 x10^3/uL (0.0-0.7) Basophils # (Auto) 0.2 x10^3/uL (0.0-0.2) Sodium Level 135 mmol/L (136-145) Potassium Level 3.8 mmol/L (3.5-5.1) Chloride Level 101 mmol/L (98-107) Carbon Dioxide Level 26 mmol/L (21-32) Anion Gap 8 (6-14) Blood Urea Nitrogen 49 mg/dL (8-26) Creatinine 2.5 mg/dL (0.7-1.3) Estimated GFR (Cockcroft-Gault) 30.7 Glucose Level 141 mg/dL (70-99) Calcium Level 8.6 mg/dL (8.5-10.1) Results All relevant outside records, renal labs, imaging studies, telemetry/EKG's were reviewed. Justicifation of Admission Dx: Justifications for Admission: Justification of Admission Dx: Yes Aspiration Pneumonia: Hemodynamic Instability JASMEET LAM MD Jun 20, 2021 09:13
[2021-06-20] MEDS: MICAFUNGIN 100 MG in IV DEXTROSE 5% 100ML 100 ML IV SCH (09:35)
[2021-06-20] MEDS: INSULIN GLARGINE SYRINGE. SQ SCH ×2 (09:37→21:05)
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
[2021-06-20] MEDS ORDERED: IV NORMAL SALINE 1000ML BAG 1,000 ML IV PRN ×2 (10:00)
[2021-06-20] MEDS ORDERED: DIALYSIS PATIENT. MC PRN ×2 (10:00)
[2021-06-20] MEDS ORDERED: 0.9 % SODIUM CHLORIDE 10 ML DISP.SYRIN. IV PRN ×2 (10:00)
[2021-06-20] MEDS ORDERED: ALBUMIN HUMAN 25% 200 ML IV PRN (10:00)
--- NOTE | 2021-06-20 10:48 | PDOC ---
PULMONARY PROGRESS NOTES DATE: 06/20/21 TIME: 10:47 Subjective Patient remained on trach shield all day yesterday. Vitals Vital Signs Date Time Temp Pulse Resp B/P (MAP) Pulse Ox O2 Delivery O2 Flow Rate FiO2 06/20/21 10:39 97 10.0 06/20/21 10:00 74 31 167/64 (98) Tracheal Collar 06/20/21 08:00 98.3 98.3 Comments Tracheostomy ros unable to obtain General: Alert Lungs: Clear Cardiovascular: S1, S2 Abdomen: Soft, Other (Nontender) Extremities: Other (1+ edema) Skin: Warm Labs Laboratory Tests Test 06/18/21 12:45 06/18/21 18:04 06/18/21 23:30 06/19/21 06:09 Glucose (Fingerstick) 157 mg/dL (70-99) 122 mg/dL (70-99) 136 mg/dL (70-99) 177 mg/dL (70-99) Test 06/19/21 06:10 06/19/21 11:57 06/19/21 17:49 06/20/21 00:12 White Blood Count 12.5 x10^3/uL (4.0-11.0) Red Blood Count 2.90 x10^6/uL (4.30-5.70) Hemoglobin 8.0 g/dL (13.0-17.5) Hematocrit 24.8 % (39.0-53.0) Mean Corpuscular Volume 86 fL (79-100) Mean Corpuscular Hemoglobin 28 pg (25-35) Mean Corpuscular Hemoglobin Concent 32 g/dL (31-37) Red Cell Distribution Width 17.1 % (11.5-14.5) Platelet Count 274 x10^3/uL (140-400) Neutrophils (%) (Auto) 55 % (31-73) Lymphocytes (%) (Auto) 20 % (24-48) Monocytes (%) (Auto) 10 % (0-9) Eosinophils (%) (Auto) 14 % (0-3) Basophils (%) (Auto) 1 % (0-3) Neutrophils # (Auto) 6.9 x10^3/uL (1.8-7.7) Lymphocytes # (Auto) 2.5 x10^3/uL (1.0-4.8) Monocytes # (Auto) 1.3 x10^3/uL (0.0-1.1) Eosinophils # (Auto) 1.7 x10^3/uL (0.0-0.7) Basophils # (Auto) 0.2 x10^3/uL (0.0-0.2) Sodium Level 134 mmol/L (136-145) Potassium Level 3.6 mmol/L (3.5-5.1) Chloride Level 100 mmol/L (98-107) Carbon Dioxide Level 29 mmol/L (21-32) Anion Gap 5 (6-14) Blood Urea Nitrogen 37 mg/dL (8-26) Creatinine 2.1 mg/dL (0.7-1.3) Estimated GFR (Cockcroft-Gault) 37.5 Glucose Level 172 mg/dL (70-99) Calcium Level 8.2 mg/dL (8.5-10.1) Glucose (Fingerstick) 175 mg/dL (70-99) 158 mg/dL (70-99) 101 mg/dL (70-99) Test 06/20/21 05:45 06/20/21 06:00 Glucose (Fingerstick) 139 mg/dL (70-99) White Blood Count 12.9 x10^3/uL (4.0-11.0) Red Blood Count 2.77 x10^6/uL (4.30-5.70) Hemoglobin 7.7 g/dL (13.0-17.5) Hematocrit 23.5 % (39.0-53.0) Mean Corpuscular Volume 85 fL (79-100) Mean Corpuscular Hemoglobin 28 pg (25-35) Mean Corpuscular Hemoglobin Concent 33 g/dL (31-37) Red Cell Distribution Width 17.4 % (11.5-14.5) Platelet Count 291 x10^3/uL (140-400) Neutrophils (%) (Auto) 54 % (31-73) Lymphocytes (%) (Auto) 24 % (24-48) Monocytes (%) (Auto) 11 % (0-9) Eosinophils (%) (Auto) 10 % (0-3) Basophils (%) (Auto) 1 % (0-3) Neutrophils # (Auto) 6.9 x10^3/uL (1.8-7.7) Lymphocytes # (Auto) 3.1 x10^3/uL (1.0-4.8) Monocytes # (Auto) 1.5 x10^3/uL (0.0-1.1) Eosinophils # (Auto) 1.3 x10^3/uL (0.0-0.7) Basophils # (Auto) 0.2 x10^3/uL (0.0-0.2) Sodium Level 135 mmol/L (136-145) Potassium Level 3.8 mmol/L (3.5-5.1) Chloride Level 101 mmol/L (98-107) Carbon Dioxide Level 26 mmol/L (21-32) Anion Gap 8 (6-14) Blood Urea Nitrogen 49 mg/dL (8-26) Creatinine 2.5 mg/dL (0.7-1.3) Estimated GFR (Cockcroft-Gault) 30.7 Glucose Level 141 mg/dL (70-99) Calcium Level 8.6 mg/dL (8.5-10.1) Laboratory Tests Test 06/19/21 11:57 06/19/21 17:49 06/20/21 00:12 06/20/21 05:45 Glucose (Fingerstick) 175 mg/dL (70-99) 158 mg/dL (70-99) 101 mg/dL (70-99) 139 mg/dL (70-99) Test 06/20/21 06:00 White Blood Count 12.9 x10^3/uL (4.0-11.0) Red Blood Count 2.77 x10^6/uL (4.30-5.70) Hemoglobin 7.7 g/dL (13.0-17.5) Hematocrit 23.5 % (39.0-53.0) Mean Corpuscular Volume 85 fL (79-100) Mean Corpuscular Hemoglobin 28 pg (25-35) Mean Corpuscular Hemoglobin Concent 33 g/dL (31-37) Red Cell Distribution Width 17.4 % (11.5-14.5) Platelet Count 291 x10^3/uL (140-400) Neutrophils (%) (Auto) 54 % (31-73) Lymphocytes (%) (Auto) 24 % (24-48) Monocytes (%) (Auto) 11 % (0-9) Eosinophils (%) (Auto) 10 % (0-3) Basophils (%) (Auto) 1 % (0-3) Neutrophils # (Auto) 6.9 x10^3/uL (1.8-7.7) Lymphocytes # (Auto) 3.1 x10^3/uL (1.0-4.8) Monocytes # (Auto) 1.5 x10^3/uL (0.0-1.1) Eosinophils # (Auto) 1.3 x10^3/uL (0.0-0.7) Basophils # (Auto) 0.2 x10^3/uL (0.0-0.2) Sodium Level 135 mmol/L (136-145) Potassium Level 3.8 mmol/L (3.5-5.1) Chloride Level 101 mmol/L (98-107) Carbon Dioxide Level 26 mmol/L (21-32) Anion Gap 8 (6-14) Blood Urea Nitrogen 49 mg/dL (8-26) Creatinine 2.5 mg/dL (0.7-1.3) Estimated GFR (Cockcroft-Gault) 30.7 Glucose Level 141 mg/dL (70-99) Calcium Level 8.6 mg/dL (8.5-10.1) Medications Active Scripts Medications Dose Route/Sig Max Daily Dose Days Date Category Glyburide 2.5 Mg Tablet 1 Tab PO DAILY 04/19/21 Rx Polyethylene Glycol 3350 17 Gm Powd.pack 17 Gm PO DAILY 04/19/21 Rx Dok (Docusate Sodium) 100 Mg Capsule 100 Mg PO PRN DAILY PRN 04/19/21 Rx Bisacodyl 5 Mg Tablet.dr 5 Mg PO PRN DAILY PRN 04/19/21 Rx Acetaminophen 325 Mg Tablet 650 Mg PO PRN Q4HRS PRN 04/19/21 Rx Aspirin Ec (Aspirin) 81 Mg Tablet.dr 81 Mg PO DAILYWBKFT 04/19/21 Rx Hydralazine Hcl 25 Mg Tablet 25 Mg PO QID 04/19/21 Rx Fenofibrate 54 Mg Tablet 1 Tab PO DAILY 04/17/21 Reported Potassium Chloride (Potassium Chloride) 20 Meq Tablet.er 20 Meq PO DAILY 04/17/21 Reported Coreg (Carvedilol) 12.5 Mg Tablet 37.5 Mg PO BIDWMEALS 04/17/21 Reported Rosuvastatin Calcium 40 Mg Tablet 40 Mg PO QHS 04/17/21 Reported Gabapentin (Gabapentin) 100 Mg Capsule 200 Mg PO BID 04/17/21 Reported Montelukast Sodium Tablet (Montelukast Sodium) 10 Mg Tablet 10 Mg PO HS 04/17/21 Reported Protonix (Pantoprazole Sodium) 20 Mg Tablet.dr 2 Tab PO DAILY 04/17/21 Reported Amlodipine Besylate 5 Mg Tablet 5 Mg PO DAILY 04/17/21 Reported Furosemide 40 Mg Tablet 1 Tab PO DAILY 04/17/21 Reported Proair Hfa Inhaler (Albuterol Sulfate) 8.5 Gm Hfa.aer.ad 2 Puff IH PRN Q4-6HRS PRN 21 04/16/21 Reported Advair 100-50 Diskus (Fluticasone/Salmeterol) 1 Each Disk.w.dev 1 Puff IH BID 04/16/21 Reported Comments Impression . IMPRESSION: 1. Acute hypoxic respiratory failure, multifactorial/COVID-19 viral pneumonia/ARDS, ongoing, intubated 04/25/2021, now status post tracheostomy 05/15/[address] chest with bilateral diffuse interstitial infiltrates without any significant pleural effusion 3. Leukocytosis, sepsis 4. Non-ST segment elevation VA 5. History of tobacco use, suspect COPD, unknown FEV1 6. Chronic kidney disease.== HD as needed per renal 7. Metabolic acidosis multifactorial, improved 8. Abnormal chest x-ray, compatible with ARDS CHF 9. Hypoglycemia, continue to monitor 10. Hypotension multifactorial 11. Fever-- 12. Anemia- 13. Atrial fibrillation with rapid ventricular response, currently rate controlled 14. Ileus 15. Type 2 diabetes 16. A. fib 17. Fever secondary to fungemia, resolved Plan . Updated 06/20/21 Continue trach shield all day. If tolerates ,then will consider trickled on a 24-hour basis. Patient requires Precedex to avoid agitation Follow ID recs --Fungemia Follow nephrology recs Follow GI recs -- illeus. PEG continues to be on hold. DVT/GI PPX D/W RN and RT [facility] has denied patient Pt. is DNR Updated 06/19/21 Continue current vent support. Continue trach shield trials as tolerated. Patient requires Precedex to avoid agitation Follow ID recs --Fungemia Follow nephrology recs Follow GI recs -- illeus. PEG continues to be on hold. DVT/GI PPX D/W RN and RT [facility] has denied patient Patient has been very difficult to wean due to multifactorial etiologies including arrhythmias, increased respiratory rate, poor control of blood pressure during trials. Did better with trach shield yesterday Pt. is DNR Updated 06/18/21 Continue current vent support. Will skip CPAP trial and consider trach shield trial. Follow ID recs --Fungemia Follow nephrology recs Follow GI recs -- illeus. PEG continues to be on hold. DVT/GI PPX D/W RN and RT [facility] has denied patient Patient has been very difficult to wean due to multifactorial etiologies including arrhythmias, increased respiratory rate, poor control of blood pressure during trials. We will reach out to the family to discuss goals of care. We will try trach shield today Pt. is DNR Updated 06/17/21 Continue current vent support. We will try CPAP again today. Follow ID recs -- ongoing fever/Fungemia Follow nephrology recs Follow GI recs -- anemia on labs today/ illeus DVT/GI PPX D/W RN and RT [facility] has denied patient Patient has been very difficult to wean due to multifactorial etiologies including arrhythmias, increased respiratory rate, poor control of blood pressure during trials. We will reach out to the family to discuss goals of care. We will try CPAP again today. Pt. is DNR Updated 06/16/21 Continue current vent support Follow ID recs -- ongoing fever/Fungemia Follow nephrology recs Follow GI recs -- anemia on labs today/ illeus DVT/GI PPX D/W RN and RT [facility] has denied patient Patient has been very difficult to wean due to multifactorial etiologies including arrhythmias, increased respiratory rate, poor control of blood pressure during trials. We will reach out to the family to discuss goals of care. Pt. is DNR JONES FISHMAN MD Jun 20, 2021 10:48
--- NOTE | 2021-06-20 15:42 | NUR ---
Wound Care Wound Type/Assessment: Wound care follow up for right plantar foot DFU. Patient continues to have intact blood blister on plantar side of right foot, tissue is stable with no openings, periwound intact and clear. No other wounds noted on head to toe skin assessment. Calazime applied for protection to coccyx/buttocks. Treatment Recommendations/Plan: Continue to skin prep R foot periwound, foam dressing was applied for protection. Recommend change every 3-4 days. Education provided: POC discussed with clinical staff rn , pt has a speaking valve now but won't verbalize understanding when educating about PU prevention Offloading surface/device: wedge, ICU bed (will need P500 bed after he leaves ICU), float feet with pillows and wedge, recommend to remove end bedrail or elevate feet on purple wedge to avoid pt touching bed due to his height. Recommended Referrals/Tests: None Discharge Recommendations for dressings: Same as above, wound care will follow up on 06/27.
--- NOTE | 2021-06-20 15:45 | NUR ---
SS following up with discharge planning. SS reviewed pt chart and discussed with pt RN. Pt is currently on the trach collar at 40%. COVID19 recovered. Pt on TPN, Propofol, and Precedex. Pt on IV Micafungin, IV Daptomycin, and IV Cefepime. Trach in place. Pt accepted at [facility], ; fax [phone], pending insurance authorization. Insurance denied pt for LTACH on 06/15/2021. Appeal in process. Clinical updates phoned and faxed to [facility] SS will continue to follow for discharge planning.
[2021-06-20] MEDS: MONTELUKAST SODIUM 10 MG TABLET. PO SCH (21:01)
[2021-06-20] MEDS: ATORVASTATIN CALCIUM 40 MG TABLET. PO SCH (21:01)
[2021-06-20] MEDS ORDERED: [UNRECOGNIZED DRUG - OTHER] IV SCH (22:00)
[2021-06-20] MEDS ORDERED: TOTAL PARENTERAL NUTRITION IV SCH (22:00)
[2021-06-20] MEDS ORDERED: AMINO ACID IV SCH (22:00)
[2021-06-20] MEDS ORDERED: DEXTROSE 70% IV SCH (22:00)
[2021-06-21] VITALS (25 sets, daily range): BP systolic 102–202; BP diastolic 49–99
[2021-06-21] MEDS: METOPROLOL IV PUSH 5 MG/5 ML VIAL. IVP SCH ×4 (00:46→17:11)
[2021-06-21] MEDS: PROPOFOL 100 ML IV PRN (00:53)
[2021-06-21] MEDS: DEXMEDETOMIDINE 400 MCG in IV NORMAL SALINE 100ML 96 ML IV PRN ×2 (01:01→11:29)
[2021-06-21] MEDS: INSULIN LISPRO 300 UNITS/3 ML VIAL. SQ SCH ×8 (06:35→16:43)
[2021-06-21 06:40] LABS: BASO # 0.2 x10^3/uL (0.0-0.2); BASO % 2 % (0-3); EOS # 1.4 x10^3/uL (0.0-0.7); EOS % 10 % (0-3); HEMATOCRIT 24.2 % (39.0-53.0); HEMOGLOBIN 7.8 g/dL (13.0-17.5); LYMPH # 3.3 x10^3/uL (1.0-4.8); LYMPH % 21 % (24-48); MEAN CORPUSCULAR HEMOGLOBIN 28 pg (25-35); MEAN CORPUSCULAR HGB CONC 32 g/dL (31-37); MEAN CORPUSCULAR VOLUME 85 fL (79-100); MONO # 1.7 x10^3/uL (0.0-1.1); MONO % 11 % (0-9); NEUT # 8.7 x10^3/uL (1.8-7.7); NEUT % 57 % (31-73); PLATELET COUNT 287 x10^3/uL (140-400); RED BLOOD COUNT 2.84 x10^6/uL (4.30-5.70); RED CELL DISTRIBUTION WIDTH 16.9 % (11.5-14.5); WHITE BLOOD COUNT 15.3 x10^3/uL (4.0-11.0)
[2021-06-21 06:57] LABS: CALCIUM 8.8 mg/dL (8.5-10.1); GFR 39.7
--- NOTE | 2021-06-21 07:57 | PDOC ---
Infectious Disease Note Subjective Subjective Patient is awake off ventilator ROS ROS No nausea vomiting diarrhea Vital Sign Vital Signs Vital Signs Date Time Temp Pulse Resp B/P (MAP) Pulse Ox O2 Delivery O2 Flow Rate FiO2 06/21/21 07:41 96 Tracheal Collar 10.0 06/21/21 06:38 95 159/69 06/21/21 06:00 26 06/21/21 04:00 99.4 99.4 Physical Exam PHYSICAL EXAM GENERAL: awake and comfortable on vent HEENT: Normocephalic, atraumatic, redness and erythema of both eyes improved, NG tube present NECK: right dialysis catheter present clean,Lt neck central line changed ( 05/11) Trach + HEART: S1, S2.no gallop LUNGS: Decreased breath sounds. ABDOMEN: Less distended, bowel sounds present GENITOURINARY: Nieves in place. EXTREMITIES: Edema present. DERMATOLOGIC: Warm, dry, no generalized rash. NEUROLOGIC: Opens eyes PICC line clean Labs Lab Laboratory Tests Test 06/20/21 11:22 06/20/21 17:28 06/21/21 00:41 06/21/21 05:15 Glucose (Fingerstick) 165 mg/dL (70-99) 113 mg/dL (70-99) 134 mg/dL (70-99) White Blood Count 15.3 x10^3/uL (4.0-11.0) Red Blood Count 2.84 x10^6/uL (4.30-5.70) Hemoglobin 7.8 g/dL (13.0-17.5) Hematocrit 24.2 % (39.0-53.0) Mean Corpuscular Volume 85 fL (79-100) Mean Corpuscular Hemoglobin 28 pg (25-35) Mean Corpuscular Hemoglobin Concent 32 g/dL (31-37) Red Cell Distribution Width 16.9 % (11.5-14.5) Platelet Count 287 x10^3/uL (140-400) Neutrophils (%) (Auto) 57 % (31-73) Lymphocytes (%) (Auto) 21 % (24-48) Monocytes (%) (Auto) 11 % (0-9) Eosinophils (%) (Auto) 10 % (0-3) Basophils (%) (Auto) 2 % (0-3) Neutrophils # (Auto) 8.7 x10^3/uL (1.8-7.7) Lymphocytes # (Auto) 3.3 x10^3/uL (1.0-4.8) Monocytes # (Auto) 1.7 x10^3/uL (0.0-1.1) Eosinophils # (Auto) 1.4 x10^3/uL (0.0-0.7) Basophils # (Auto) 0.2 x10^3/uL (0.0-0.2) Sodium Level 136 mmol/L (136-145) Potassium Level 4.0 mmol/L (3.5-5.1) Chloride Level 99 mmol/L (98-107) Carbon Dioxide Level 28 mmol/L (21-32) Anion Gap 9 (6-14) Blood Urea Nitrogen 38 mg/dL (8-26) Creatinine 2.0 mg/dL (0.7-1.3) Estimated GFR (Cockcroft-Gault) 39.7 Glucose Level 144 mg/dL (70-99) Calcium Level 8.8 mg/dL (8.5-10.1) Creatine Kinase 64 U/L (39-308) Test 06/21/21 06:33 Glucose (Fingerstick) 162 mg/dL (70-99) Micro BC neg Objective Assessment Fungemia May 30, 2021, C parapsilosis, 06/02 neg RT IJ central line removed cath tip sent for cult 1. Febrile illness resolved 2. Leukocytosis, was on steroids,ileus could contribute,improving 3. COVID-19 pneumonia. 4. Acute hypoxic respiratory failure status post intubation.Now S/P Trach 8/10 Pleural effusion 5. Congestive heart failure, acute on chronic. 6. Acute kidney injury on chronic kidney disease on hemodialysis. 7. Diabetes mellitus 2. 8. Atrial fibrillation. 9. Anemia. 10. Protein-calorie malnutrition. 11. Hypertention 12.Hyponatremia 13. Ileus, Bowel obstruction Peg TF on hold, OG to LIS 14.on PPN 15.Mild to Moderate Pleural effusion 16.Lt eye conjunctivitis resolved Plan Plan of Care Discontinue antibiotics Monitor labs and cultures Continue supportive care Discussed with nursing staff JAD RIVERO MD Jun 21, 2021 07:57
[2021-06-21] MEDS: PANTOPRAZOLE IV PUSH 40 MG VIAL. IVP SCH (08:39)
[2021-06-21] MEDS: ASPIRIN CHEWABLE 81 MG TABLET. PO SCH (08:39)
[2021-06-21] MEDS: CEFEPIME HCL IV Push 1 GM VIAL. IVP SCH (08:39)
[2021-06-21] MEDS: NYSTATIN TOPICAL POWDER 15GM BOTTLE. TP SCH ×2 (08:40→21:02)
[2021-06-21] MEDS: INSULIN GLARGINE SYRINGE. SQ SCH ×2 (08:41→21:18)
[2021-06-21] MEDS: MICAFUNGIN 100 MG in IV DEXTROSE 5% 100ML 100 ML IV SCH (08:54)
--- NOTE | 2021-06-21 09:08 | PDOC ---
DATE OF SERVICE DATE: 06/21/21 TIME: 09:05 SUBJECTIVE ROS Patient is awake on ventilator, stable OBJECTIVE Vital Signs Vital Signs Date Time Temp Pulse Resp B/P (MAP) Pulse Ox O2 Delivery O2 Flow Rate FiO2 06/21/21 08:39 72 168/90 06/21/21 08:13 96 Tracheal Collar 40.0 06/21/21 07:00 32 06/21/21 04:00 99.4 99.4 I & 0 Intake and Output 06/21/21 07:00 Intake Total 2268 ml Output Total 1140 ml Balance 1128 ml Intake Oral 0 ml IV Total 2268 ml Output Urine Total 740 ml Gastric Drainage Total 400 ml PHYSICAL EXAM Physical Exam GENERAL: awake on vent HEENT: NG tube present NECK: right dialysis catheter present , Trach + HEART: S1, S2.no gallop LUNGS: Decreased breath sounds. ABDOMEN: bowel sounds present GENITOURINARY: Nieves in place. EXTREMITIES: trace edema DERMATOLOGIC: no generalized rash. NEUROLOGIC: awake, responsive DIAGNOSIS/ASSESSMENT Assessment & Plan ILDA-ATN- requiring dialysis; , Oliguric- some improvement in UOp , currently on MWF schedule .No indication ffor dialysis today Access - has temp HDC ; if no renal recovery will need Tunneled HDC . Re-eval n ext week . Bhavesh RN Fungemia-on antifungal per ID HypoNatremia- Resolved HypoKalemia - replace CKD stage 3 Acute Hypoxic Resp failure - S/P Trach COVID 19 Pneumonia Anemia - Hgb stable COMMENT/RELEVANT DATA Meds Current Medications Medications (Trade) Dose Ordered Sig/Jodie Start Time Stop Time Status Last Admin Dose Admin Acetaminophen (Tylenol Supp) 650 mg PRN Q6HRS PRN 05/29/21 16:15 06/17/21 08:12 650 MG Acetaminophen (Tylenol) 650 mg PRN Q6HRS PRN 04/24/21 14:00 Cancel Albumin Human 200 ml @ 200 mls/hr 1X PRN PRN 06/20/21 10:00 06/20/21 15:59 DC Amiodarone HCl (Cordarone) 200 mg DAILY 04/28/21 09:00 05/22/21 16:27 DC 05/21/21 11:07 200 MG Amiodarone HCl 150 mg/Dextrose 103 ml @ 618 mls/hr 1X ONCE 04/27/21 02:30 04/27/21 02:39 DC 04/27/21 02:30 618 MLS/HR Amiodarone HCl 450 mg/Dextrose 259 ml @ 0 mls/hr 1X ONCE 05/22/21 16:30 05/22/21 16:34 DC 05/22/21 16:59 33 MLS/HR Amlodipine Besylate (Norvasc) 10 mg DAILY 05/16/21 09:00 06/21/21 08:39 10 MG Aspirin (Aspirin Chewable) 81 mg DAILYWBKFT 05/03/21 10:00 06/21/21 08:39 81 MG Aspirin (Ecotrin) 81 mg DAILYWBKFT 04/25/21 08:00 05/03/21 09:56 DC 05/02/21 07:20 81 MG Atorvastatin Calcium (Lipitor) 80 mg QHS 04/24/21 21:00 06/20/21 21:01 80 MG Bisacodyl (Dulcolax Supp) 10 mg 1X ONCE 06/19/21 09:45 06/19/21 09:46 DC 06/19/21 09:45 10 MG Bupivacaine HCl/ Epinephrine Bitart (Sensorcain-Epi 0.5%-1:[id number] Mpf) 30 ml STK-MED ONCE 05/15/21 07:05 05/15/21 07:06 DC Carvedilol (Coreg) 3.125 mg BIDWMEALS 04/24/21 17:00 04/25/21 15:42 DC 04/25/21 09:23 3.125 MG Cefepime HCl (Maxipime) 1 gm DAILY 06/15/21 09:30 06/21/21 08:39 1 GM Cellulose (Surgicel Fibrillar 1x2) 1 each STK-MED ONCE 05/15/21 07:05 05/15/21 07:06 DC 05/15/21 09:40 1 EACH Chlorhexidine Gluconate (Peridex) 15 ml BID 04/24/21 21:00 04/25/21 11:19 DC 04/24/21 20:49 15 ML Daptomycin 600 mg/ Sodium Chloride 50 ml @ 100 mls/hr Q48H 05/04/21 15:00 05/06/21 08:07 DC 05/04/21 15:24 100 MLS/HR Daptomycin 620 mg/ Sodium Chloride 50 ml @ 100 mls/hr Q48H 06/15/21 11:00 06/19/21 11:19 100 MLS/HR Dexamethasone Sodium Phosphate (Decadron) 4 mg STK-MED ONCE 05/15/21 07:53 05/15/21 07:53 DC Dexmedetomidine HCl 400 mcg/ Sodium Chloride 100 ml @ 0 mls/hr CONT PRN 05/04/21 10:30 06/21/21 01:01 19.7 MLS/HR Dextrose (Dextrose 50%-Water Syringe) 12.5 gm PRN Q15MIN PRN 06/09/21 16:30 UNV Digoxin (Lanoxin) 250 mcg 1X ONCE 04/26/21 13:00 04/26/21 13:05 DC 04/26/21 15:02 250 MCG Ephedrine Sulfate (ePHEDrine PF IN SALINE SYRINGE) 50 mg STK-MED ONCE 05/15/21 09:15 05/15/21 09:15 DC Erythromycin (Romycin) 0.25 inch BID 05/17/21 12:00 05/25/21 13:24 DC 05/25/21 07:43 0.25 INCH Etomidate (Amidate) 20 mg STK-MED ONCE 04/24/21 13:38 04/24/21 13:38 DC Fentanyl Citrate 30 ml @ 0 mls/hr CONT PRN 04/24/21 14:00 06/21/21 07:41 2.5 MLS/HR Fentanyl Citrate (Fentanyl 2ml Vial) 25 mcg PRN Q1HR PRN 04/24/21 14:00 05/17/21 16:12 25 MCG Fluconazole/ Sodium Chloride 100 ml @ 100 mls/hr Q24H 06/05/21 09:00 06/15/21 08:53 DC 06/14/21 10:36 100 MLS/HR Furosemide (Lasix) 80 mg TID 05/27/21 09:00 06/01/21 11:08 DC 05/31/21 20:10 80 MG Heparin Sodium (Porcine) (Heparin Sodium) 5,000 unit Q8HRS 05/18/21 10:00 05/30/21 11:07 DC 05/30/21 06:07 5,000 UNIT Heparin Sodium/ Dextrose 250 ml @ 0 mls/hr CONT PRN 04/24/21 16:45 05/01/21 12:32 DC 05/01/21 05:10 10 MLS/HR Hydralazine HCl (Apresoline Inj) 10 mg PRN QID PRN 05/22/21 16:30 06/11/21 21:08 10 MG Hydralazine HCl (Apresoline) 25 mg QID 05/10/21 10:00 05/22/21 16:27 DC 05/21/21 17:24 25 MG Info (Anti-Coagulation Monitoring By Pharmacy) 1 each PRN DAILY PRN 04/25/21 13:00 05/02/21 07:36 DC 04/26/21 08:51 1 EACH Info (PHARMACY MONITORING -- do not chart) 1 each PRN DAILY PRN 06/20/21 10:00 Info (Tpn Per Pharmacy) 1 each PRN DAILY PRN 05/22/21 10:00 06/19/21 13:38 1 EACH Insulin Glargine (Lantus Syringe) 20 unit BID 05/31/21 09:00 06/21/21 08:41 20 UNIT Insulin Human Lispro (HumaLOG) 3 units Q6HRS 06/09/21 18:00 06/21/21 06:37 3 UNITS Labetalol HCl (Normodyne Iv Push) 20 mg PRN Q2HR PRN 05/01/21 12:30 05/27/21 15:43 20 MG Lidocaine HCl (Buffered Lidocaine 1%) 6 ml 1X ONCE 06/04/21 09:30 06/04/21 09:31 DC 06/04/21 09:34 2 ML Lidocaine HCl (Lidocaine Pf 2% Vial) 5 ml STK-MED ONCE 05/15/21 07:53 05/15/21 07:53 DC Linezolid/Dextrose 300 ml @ 300 mls/hr Q12HR 05/31/21 09:00 UNV Lorazepam (Ativan Inj) 0.25 mg PRN Q4HRS PRN 05/21/21 09:00 06/02/21 04:30 0.25 MG Magnesium Sulfate 50 ml @ 25 mls/hr 1X ONCE 06/02/21 08:45 06/02/21 10:44 DC 06/02/21 09:53 25 MLS/HR Meropenem 500 mg/ Sodium Chloride 50 ml @ 100 mls/hr DAILY 05/23/21 09:00 05/25/21 11:55 DC 05/25/21 07:42 100 MLS/HR Methylnaltrexone [place] (Relistor) 12 mg 1X ONCE 06/10/21 12:00 06/10/21 12:01 DC 06/10/21 13:02 12 MG Metoprolol Tartrate (Lopressor Vial) 5 mg Q6HRS 04/25/21 18:00 06/21/21 06:38 5 MG Metronidazole 100 ml @ 100 mls/hr Q12HR 05/30/21 09:00 06/05/21 07:34 DC 06/04/21 20:32 100 MLS/HR Micafungin Sodium 100 mg/Dextrose 100 ml @ 100 mls/hr Q24H 06/15/21 10:00 06/21/21 08:54 100 MLS/HR Midazolam HCl (Versed) 5 mg 1X ONCE 05/24/21 15:15 05/24/21 15:16 DC 05/24/21 15:20 5 MG Montelukast Sodium (Singulair) 10 mg HS 04/24/21 21:00 06/20/21 21:01 10 MG Multi-Ingred Cream/Lotion/Oil/ Oint (Artificial Tears Eye Ointment) 1 danielito PRN Q1HR PRN 05/07/21 16:00 05/10/21 20:51 1 DANIELITO Nicardipine HCl 50 mg/Sodium Chloride 250 ml @ 25 mls/hr CONT PRN 05/06/21 18:45 05/20/21 19:47 37.5 MLS/HR Norepinephrine Bitartrate 8 mg/ Dextrose 258 ml @ 25.852 mls/ hr CONT PRN 05/02/21 21:00 05/09/21 06:10 DC 05/02/21 21:22 25.852 MLS/HR Nystatin (Nystop) 1 danielito BID 05/16/21 21:00 06/21/21 08:40 1 DANIELITO Ondansetron HCl (Zofran) 4 mg STK-MED ONCE 05/15/21 07:53 05/15/21 07:53 DC Pantoprazole Sodium (PROTONIX VIAL for IV PUSH) 40 mg DAILYAC 04/26/21 09:30 06/21/21 08:39 40 MG Phenylephrine HCl (PHENYLEPHRINE in 0.9% NACL PF) 1 mg STK-MED ONCE 05/15/21 07:51 05/15/21 07:51 DC Potassium Bicarbonate (Potassium Effervescent Tablet) 40 meq 1X ONCE 05/19/21 08:30 05/19/21 08:31 DC 05/19/21 08:50 40 MEQ Potassium Chloride/Water 100 ml @ 100 mls/hr Q1H 05/23/21 10:45 05/23/21 12:44 DC 05/23/21 13:17 100 MLS/HR Potassium Phosphate 10 mmol/ Sodium Chloride 103.3333 ml @ 51.667 m... Q2H 06/01/21 12:00 06/01/21 15:59 DC 06/01/21 13:24 51.667 MLS/HR Potassium Phosphate 13.6 mmol/Sodium Chloride 254.5333 ml @ 127.... 1X ONCE 06/08/21 14:00 06/08/21 15:59 DC 06/08/21 15:21 127.267 MLS/HR Potassium Phosphate 20 mmol/ Sodium Chloride 256.6667 ml @ 62.5 mls/hr 1X ONCE 05/13/21 12:15 05/13/21 16:21 UNV Potassium Phosphate 30 mmol/ Sodium Chloride 260 ml @ 62.5 mls/hr 1X ONCE 05/13/21 12:15 05/13/21 16:24 UNV Prochlorperazine Edisylate (Compazine) 5 mg PACU PRN PRN 05/15/21 06:00 05/16/21 05:59 DC Propofol 100 ml @ 4.185 mls/ hr CONT PRN 06/02/21 09:30 06/21/21 00:53 4.185 MLS/HR Propofol (Diprivan) 200 mg STK-MED ONCE 05/15/21 07:53 05/15/21 07:53 DC Remdesivir 100 mg/ Sodium Chloride 230 ml @ 460 mls/hr Q24H 04/26/21 17:30 04/29/21 17:59 DC 04/29/21 13:51 460 MLS/HR Remdesivir 200 mg/ Sodium Chloride 210 ml @ 210 mls/hr 1X ONCE 04/25/21 17:30 04/25/21 18:29 DC 04/25/21 17:09 210 MLS/HR Ringer's Solution 1,000 ml @ 30 mls/hr Q24H 05/15/21 06:00 05/15/21 17:59 DC 05/15/21 07:04 30 MLS/HR Rocuronium [place] (Zemuron) 50 mg STK-MED ONCE 05/15/21 07:06 05/15/21 07:07 DC Sodium Bicarbonate (Sodium Bicarb Adult 8.4% Syr) 50 meq 1X ONCE 04/27/21 09:45 04/27/21 09:46 DC 04/27/21 09:50 50 MEQ Sodium Chloride (Normal Saline Flush) 10 ml 1X PRN PRN 06/20/21 10:00 06/21/21 09:59 Sodium Chloride 80 meq/Potassium Chloride 10 meq/ Potassium Phosphate 10 mmol/ Magnesium Sulfate 8 meq/ Multivitamins 5 ml/Zinc/Copper/ Manganese/ Selenium 1 ml/ Total Parenteral Nutrition/Amino Acids/Dextrose/ Fat Emulsion Intravenous 1,440 ml @ 60 mls/hr TPN CONT 06/13/21 22:00 06/14/21 21:59 DC 06/13/21 22:00 60 MLS/HR Sodium Chloride 80 meq/Potassium Chloride 20 meq/ Potassium Phosphate 13.6 mmol/Magnesium Sulfate 8 meq/ Multivitamins 5 ml/Zinc/Copper/ Manganese/ Selenium 1 ml/ Total Parenteral Nutrition/Amino Acids/Dextrose/ Fat Emulsion Intravenous 1,440 ml @ 60 mls/hr TPN CONT 06/16/21 22:00 06/17/21 21:59 DC 06/16/21 21:53 60 MLS/HR Sodium Chloride 80 meq/Potassium Chloride 20 meq/ Potassium Phosphate 15 mmol/ Magnesium Sulfate 8 meq/ Multivitamins 5 ml/Zinc/Copper/ Manganese/ Selenium 1 ml/ Total Parenteral Nutrition/Amino Acids/Dextrose/ Fat Emulsion Intravenous 1,440 ml @ 60 mls/hr TPN CONT 06/17/21 22:00 06/18/21 21:59 DC 06/17/21 22:11 60 MLS/HR Sodium Chloride 80 meq/Potassium Chloride 30 meq/ Potassium Phosphate 10 mmol/ Magnesium Sulfate 8 meq/ Multivitamins 5 ml/Zinc/Copper/ Manganese/ Selenium 1 ml/ Total Parenteral Nutrition/Amino Acids/Dextrose/ Fat Emulsion Intravenous 1,440 ml @ 60 mls/hr TPN CONT 06/12/21 22:00 06/13/21 21:59 DC 06/12/21 21:56 60 MLS/HR Sodium Chloride 80 meq/Potassium Chloride 30 meq/ Potassium Phosphate 15 mmol/ Magnesium Sulfate 8 meq/ Multivitamins 5 ml/Zinc/Copper/ Manganese/ Selenium 1 ml/ Total Parenteral Nutrition/Amino Acids/Dextrose 1,440 ml @ 60 mls/hr TPN CONT 06/20/21 22:00 06/21/21 21:59 06/20/21 22:33 60 MLS/HR Sodium Chloride 90 meq/Potassium Chloride 25 meq/ Magnesium Sulfate 10 meq/Calcium Gluconate 5 meq/ Multivitamins 5 ml/Zinc/Copper/ Manganese/ Selenium 1 ml/ Total Parenteral Nutrition/Amino Acids/Dextrose/ Fat Emulsion Intravenous 1,080 ml @ 45 mls/hr TPN CONT 05/22/21 22:00 05/23/21 21:59 DC 05/22/21 21:22 45 MLS/HR Sodium Chloride 90 meq/Potassium Chloride 30 meq/ Potassium Phosphate 13.6 mmol/Magnesium Sulfate 10 meq/ Multivitamins 5 ml/Zinc/Copper/ Manganese/ Selenium 1 ml/ Total Parenteral Nutrition/Amino Acids/Dextrose/ Fat Emulsion Intravenous 1,200 ml @ 50 mls/hr TPN CONT 06/01/21 22:00 06/02/21 21:59 DC 06/01/21 21:33 50 MLS/HR Sodium Chloride 90 meq/Potassium Chloride 30 meq/ Potassium Phosphate 13.6 mmol/Magnesium Sulfate 12 meq/ Multivitamins 5 ml/Zinc/Copper/ Manganese/ Selenium 1 ml/ Total Parenteral Nutrition/Amino Acids/Dextrose 1,200 ml @ 50 mls/hr TPN CONT 06/07/21 22:00 06/08/21 21:59 DC 06/07/21 22:16 50 MLS/HR Sodium Chloride 90 meq/Potassium Chloride 30 meq/ Potassium Phosphate 13.6 mmol/Magnesium Sulfate 12 meq/ Multivitamins 5 ml/Zinc/Copper/ Manganese/ Selenium 1 ml/ Total Parenteral Nutrition/Amino Acids/Dextrose/ Fat Emulsion Intravenous 1,440 ml @ 60 mls/hr TPN CONT 06/11/21 22:00 06/12/21 21:59 DC 06/11/21 22:13 60 MLS/HR Sodium Chloride 90 meq/Potassium Chloride 50 meq/ Magnesium Sulfate 10 meq/Calcium Gluconate 5 meq/ Multivitamins 5 ml/Zinc/Copper/ Manganese/ Selenium 1 ml/ Total Parenteral Nutrition/Amino Acids/Dextrose/ Fat Emulsion Intravenous 960 ml @ 40 mls/hr TPN CONT 05/27/21 22:00 05/28/21 21:59 DC 05/27/21 22:03 40 MLS/HR Sodium Chloride 90 meq/Potassium Chloride 50 meq/ Potassium Phosphate 5 mmol/ Magnesium Sulfate 10 meq/Calcium Gluconate 5 meq/ Multivitamins 5 ml/Zinc/Copper/ Manganese/ Selenium 1 ml/ Total Parenteral Nutrition/Amino Acids/Dextrose/ Fat Emulsion Intravenous 1,200 ml @ 50 mls/hr TPN CONT 05/30/21 22:00 05/31/21 21:59 DC 05/30/21 21:57 50 MLS/HR Sodium Phosphate 15 mmol/Dextrose 105 ml @ 105 mls/hr 1X ONCE 05/29/21 11:00 05/29/21 11:59 DC 05/29/21 11:53 105 MLS/HR Sodium Phosphate 15 mmol/Sodium Chloride 105 ml @ 105 mls/hr 1X ONCE 05/29/21 11:45 05/29/21 12:44 UNV Succinylcholine Chloride (Anectine) 200 mg STK-MED ONCE 04/24/21 13:38 04/24/21 13:38 DC Vecuronium [place] (Norcuron Bolus) 6 mg PRN Q6HRS PRN 04/30/21 11:15 05/14/21 09:12 6 MG Lab Laboratory Tests Test 06/20/21 11:22 06/20/21 17:28 06/21/21 00:41 06/21/21 05:15 Glucose (Fingerstick) 165 mg/dL (70-99) 113 mg/dL (70-99) 134 mg/dL (70-99) White Blood Count 15.3 x10^3/uL (4.0-11.0) Red Blood Count 2.84 x10^6/uL (4.30-5.70) Hemoglobin 7.8 g/dL (13.0-17.5) Hematocrit 24.2 % (39.0-53.0) Mean Corpuscular Volume 85 fL (79-100) Mean Corpuscular Hemoglobin 28 pg (25-35) Mean Corpuscular Hemoglobin Concent 32 g/dL (31-37) Red Cell Distribution Width 16.9 % (11.5-14.5) Platelet Count 287 x10^3/uL (140-400) Neutrophils (%) (Auto) 57 % (31-73) Lymphocytes (%) (Auto) 21 % (24-48) Monocytes (%) (Auto) 11 % (0-9) Eosinophils (%) (Auto) 10 % (0-3) Basophils (%) (Auto) 2 % (0-3) Neutrophils # (Auto) 8.7 x10^3/uL (1.8-7.7) Lymphocytes # (Auto) 3.3 x10^3/uL (1.0-4.8) Monocytes # (Auto) 1.7 x10^3/uL (0.0-1.1) Eosinophils # (Auto) 1.4 x10^3/uL (0.0-0.7) Basophils # (Auto) 0.2 x10^3/uL (0.0-0.2) Sodium Level 136 mmol/L (136-145) Potassium Level 4.0 mmol/L (3.5-5.1) Chloride Level 99 mmol/L (98-107) Carbon Dioxide Level 28 mmol/L (21-32) Anion Gap 9 (6-14) Blood Urea Nitrogen 38 mg/dL (8-26) Creatinine 2.0 mg/dL (0.7-1.3) Estimated GFR (Cockcroft-Gault) 39.7 Glucose Level 144 mg/dL (70-99) Calcium Level 8.8 mg/dL (8.5-10.1) Creatine Kinase 64 U/L (39-308) Test 06/21/21 06:33 Glucose (Fingerstick) 162 mg/dL (70-99) Results All relevant outside records, renal labs, imaging studies, telemetry/EKG's were reviewed. Justicifation of Admission Dx: Justifications for Admission: Justification of Admission Dx: Yes Aspiration Pneumonia: Hemodynamic Instability JASMEET LAM MD Jun 21, 2021 09:08
[2021-06-21] MEDS: HALOPERIDOL LACTATE 5 MG/ML VIAL. IVP PRN ×2 (09:20→15:13)
[2021-06-21] MEDS: hydrALAZINE 20 MG/ML VIAL. IVP PRN ×2 (10:34→20:22)
--- NOTE | 2021-06-21 10:43 | PDOC ---
PULMONARY PROGRESS NOTES DATE: 06/21/21 TIME: 10:42 Subjective Patient remained on trach shield past 24 hours. Is still on Precedex drip. Vitals Vital Signs Date Time Temp Pulse Resp B/P (MAP) Pulse Ox O2 Delivery O2 Flow Rate FiO2 06/21/21 10:34 104 182/99 06/21/21 10:00 42 98 Tracheal Collar 06/21/21 08:13 40.0 06/21/21 08:00 98.7 98.7 Comments Tracheostomy ros unable to obtain General: Alert, No acute distress Lungs: Clear Cardiovascular: S1, S2 Abdomen: Soft, Other (Nontender) Extremities: Other (1+ edema) Skin: Warm Labs Laboratory Tests Test 06/19/21 11:57 06/19/21 17:49 06/20/21 00:12 06/20/21 05:45 Glucose (Fingerstick) 175 mg/dL (70-99) 158 mg/dL (70-99) 101 mg/dL (70-99) 139 mg/dL (70-99) Test 06/20/21 06:00 06/20/21 11:22 06/20/21 17:28 06/21/21 00:41 White Blood Count 12.9 x10^3/uL (4.0-11.0) Red Blood Count 2.77 x10^6/uL (4.30-5.70) Hemoglobin 7.7 g/dL (13.0-17.5) Hematocrit 23.5 % (39.0-53.0) Mean Corpuscular Volume 85 fL (79-100) Mean Corpuscular Hemoglobin 28 pg (25-35) Mean Corpuscular Hemoglobin Concent 33 g/dL (31-37) Red Cell Distribution Width 17.4 % (11.5-14.5) Platelet Count 291 x10^3/uL (140-400) Neutrophils (%) (Auto) 54 % (31-73) Lymphocytes (%) (Auto) 24 % (24-48) Monocytes (%) (Auto) 11 % (0-9) Eosinophils (%) (Auto) 10 % (0-3) Basophils (%) (Auto) 1 % (0-3) Neutrophils # (Auto) 6.9 x10^3/uL (1.8-7.7) Lymphocytes # (Auto) 3.1 x10^3/uL (1.0-4.8) Monocytes # (Auto) 1.5 x10^3/uL (0.0-1.1) Eosinophils # (Auto) 1.3 x10^3/uL (0.0-0.7) Basophils # (Auto) 0.2 x10^3/uL (0.0-0.2) Sodium Level 135 mmol/L (136-145) Potassium Level 3.8 mmol/L (3.5-5.1) Chloride Level 101 mmol/L (98-107) Carbon Dioxide Level 26 mmol/L (21-32) Anion Gap 8 (6-14) Blood Urea Nitrogen 49 mg/dL (8-26) Creatinine 2.5 mg/dL (0.7-1.3) Estimated GFR (Cockcroft-Gault) 30.7 Glucose Level 141 mg/dL (70-99) Calcium Level 8.6 mg/dL (8.5-10.1) Glucose (Fingerstick) 165 mg/dL (70-99) 113 mg/dL (70-99) 134 mg/dL (70-99) Test 06/21/21 05:15 06/21/21 06:33 White Blood Count 15.3 x10^3/uL (4.0-11.0) Red Blood Count 2.84 x10^6/uL (4.30-5.70) Hemoglobin 7.8 g/dL (13.0-17.5) Hematocrit 24.2 % (39.0-53.0) Mean Corpuscular Volume 85 fL (79-100) Mean Corpuscular Hemoglobin 28 pg (25-35) Mean Corpuscular Hemoglobin Concent 32 g/dL (31-37) Red Cell Distribution Width 16.9 % (11.5-14.5) Platelet Count 287 x10^3/uL (140-400) Neutrophils (%) (Auto) 57 % (31-73) Lymphocytes (%) (Auto) 21 % (24-48) Monocytes (%) (Auto) 11 % (0-9) Eosinophils (%) (Auto) 10 % (0-3) Basophils (%) (Auto) 2 % (0-3) Neutrophils # (Auto) 8.7 x10^3/uL (1.8-7.7) Lymphocytes # (Auto) 3.3 x10^3/uL (1.0-4.8) Monocytes # (Auto) 1.7 x10^3/uL (0.0-1.1) Eosinophils # (Auto) 1.4 x10^3/uL (0.0-0.7) Basophils # (Auto) 0.2 x10^3/uL (0.0-0.2) Sodium Level 136 mmol/L (136-145) Potassium Level 4.0 mmol/L (3.5-5.1) Chloride Level 99 mmol/L (98-107) Carbon Dioxide Level 28 mmol/L (21-32) Anion Gap 9 (6-14) Blood Urea Nitrogen 38 mg/dL (8-26) Creatinine 2.0 mg/dL (0.7-1.3) Estimated GFR (Cockcroft-Gault) 39.7 Glucose Level 144 mg/dL (70-99) Calcium Level 8.8 mg/dL (8.5-10.1) Creatine Kinase 64 U/L (39-308) Glucose (Fingerstick) 162 mg/dL (70-99) Laboratory Tests Test 06/20/21 11:22 06/20/21 17:28 06/21/21 00:41 06/21/21 05:15 Glucose (Fingerstick) 165 mg/dL (70-99) 113 mg/dL (70-99) 134 mg/dL (70-99) White Blood Count 15.3 x10^3/uL (4.0-11.0) Red Blood Count 2.84 x10^6/uL (4.30-5.70) Hemoglobin 7.8 g/dL (13.0-17.5) Hematocrit 24.2 % (39.0-53.0) Mean Corpuscular Volume 85 fL (79-100) Mean Corpuscular Hemoglobin 28 pg (25-35) Mean Corpuscular Hemoglobin Concent 32 g/dL (31-37) Red Cell Distribution Width 16.9 % (11.5-14.5) Platelet Count 287 x10^3/uL (140-400) Neutrophils (%) (Auto) 57 % (31-73) Lymphocytes (%) (Auto) 21 % (24-48) Monocytes (%) (Auto) 11 % (0-9) Eosinophils (%) (Auto) 10 % (0-3) Basophils (%) (Auto) 2 % (0-3) Neutrophils # (Auto) 8.7 x10^3/uL (1.8-7.7) Lymphocytes # (Auto) 3.3 x10^3/uL (1.0-4.8) Monocytes # (Auto) 1.7 x10^3/uL (0.0-1.1) Eosinophils # (Auto) 1.4 x10^3/uL (0.0-0.7) Basophils # (Auto) 0.2 x10^3/uL (0.0-0.2) Sodium Level 136 mmol/L (136-145) Potassium Level 4.0 mmol/L (3.5-5.1) Chloride Level 99 mmol/L (98-107) Carbon Dioxide Level 28 mmol/L (21-32) Anion Gap 9 (6-14) Blood Urea Nitrogen 38 mg/dL (8-26) Creatinine 2.0 mg/dL (0.7-1.3) Estimated GFR (Cockcroft-Gault) 39.7 Glucose Level 144 mg/dL (70-99) Calcium Level 8.8 mg/dL (8.5-10.1) Creatine Kinase 64 U/L (39-308) Test 06/21/21 06:33 Glucose (Fingerstick) 162 mg/dL (70-99) Medications Active Scripts Medications Dose Route/Sig Max Daily Dose Days Date Category Glyburide 2.5 Mg Tablet 1 Tab PO DAILY 04/19/21 Rx Polyethylene Glycol 3350 17 Gm Powd.pack 17 Gm PO DAILY 04/19/21 Rx Dok (Docusate Sodium) 100 Mg Capsule 100 Mg PO PRN DAILY PRN 04/19/21 Rx Bisacodyl 5 Mg Tablet. 5 Mg PO PRN DAILY PRN 04/19/21 Rx Acetaminophen 325 Mg Tablet 650 Mg PO PRN Q4HRS PRN 04/19/21 Rx Aspirin Ec (Aspirin) 81 Mg Tablet. 81 Mg PO DAILYWBKFT 04/19/21 Rx Hydralazine Hcl 25 Mg Tablet 25 Mg PO QID 04/19/21 Rx Fenofibrate 54 Mg Tablet 1 Tab PO DAILY 04/17/21 Reported Potassium Chloride (Potassium Chloride) 20 Meq Tablet.er 20 Meq PO DAILY 04/17/21 Reported Coreg (Carvedilol) 12.5 Mg Tablet 37.5 Mg PO BIDWMEALS 04/17/21 Reported Rosuvastatin Calcium 40 Mg Tablet 40 Mg PO QHS 04/17/21 Reported Gabapentin (Gabapentin) 100 Mg Capsule 200 Mg PO BID 04/17/21 Reported Montelukast Sodium Tablet (Montelukast Sodium) 10 Mg Tablet 10 Mg PO HS 04/17/21 Reported Protonix (Pantoprazole Sodium) 20 Mg Tablet.dr 2 Tab PO DAILY 04/17/21 Reported Amlodipine Besylate 5 Mg Tablet 5 Mg PO DAILY 04/17/21 Reported Furosemide 40 Mg Tablet 1 Tab PO DAILY 04/17/21 Reported Proair Hfa Inhaler (Albuterol Sulfate) 8.5 Gm Hfa.aer.ad 2 Puff IH PRN Q4-6HRS PRN 21 04/16/21 Reported Advair 100-50 Diskus (Fluticasone/Salmeterol) 1 Each Disk.w.dev 1 Puff IH BID 04/16/21 Reported Comments Impression . IMPRESSION: 1. Acute hypoxic respiratory failure, multifactorial/COVID-19 viral pneumonia/ARDS, ongoing, intubated 04/25/2021, now status post tracheostomy 05/15/[address] chest with bilateral diffuse interstitial infiltrates without any significant pleural effusion 3. Leukocytosis, sepsis 4. Non-ST segment elevation NE 5. History of tobacco use, suspect COPD, unknown FEV1 6. Chronic kidney disease.== HD as needed per renal 7. Metabolic acidosis multifactorial, improved 8. Abnormal chest x-ray, compatible with ARDS CHF 9. Hypoglycemia, continue to monitor 10. Hypotension multifactorial 11. Fever-- 12. Anemia- 13. Atrial fibrillation with rapid ventricular response, currently rate controlled 14. Ileus 15. Type 2 diabetes 16. A. fib 17. Fever secondary to fungemia, resolved Plan . Updated 06/21/21 Continue trach shield all day. Will ask surgery to downsize trach in the next 24 hours and use Passy-Nichol valve. Patient requires Precedex to avoid agitation. Will discontinue and try as needed Haldol. Low-dose Ativan if needed Follow ID recs - Follow nephrology recs Follow GI recs -- illeus. PEG continues to be on hold. DVT/GI PPX D/W RN and RT [facility] has denied patient Pt. is DNR Updated 06/20/21 Continue trach shield all day. If tolerates ,then will consider trickled on a 24-hour basis. Patient requires Precedex to avoid agitation Follow ID recs --Fungemia Follow nephrology recs Follow GI recs -- illeus. PEG continues to be on hold. DVT/GI PPX D/W RN and RT [facility] has denied patient Pt. is DNR Updated 06/19/21 Continue current vent support. Continue trach shield trials as tolerated. Patient requires Precedex to avoid agitation Follow ID recs --Fungemia Follow nephrology recs Follow GI recs -- illeus. PEG continues to be on hold. DVT/GI PPX D/W RN and RT [facility] has denied patient Patient has been very difficult to wean due to multifactorial etiologies including arrhythmias, increased respiratory rate, poor control of blood pressure during trials. Did better with trach shield yesterday Pt. is DNR Updated 06/18/21 Continue current vent support. Will skip CPAP trial and consider trach shield trial. Follow ID recs --Fungemia Follow nephrology recs Follow GI recs -- illeus. PEG continues to be on hold. DVT/GI PPX D/W RN and RT [facility] has denied patient Patient has been very difficult to wean due to multifactorial etiologies including arrhythmias, increased respiratory rate, poor control of blood pressure during trials. We will reach out to the family to discuss goals of care. We will try trach shield today Pt. is DNR Updated 06/17/21 Continue current vent support. We will try CPAP again today. Follow ID recs -- ongoing fever/Fungemia Follow nephrology recs Follow GI recs -- anemia on labs today/ illeus DVT/GI PPX D/W RN and RT [facility] has denied patient Patient has been very difficult to wean due to multifactorial etiologies including arrhythmias, increased respiratory rate, poor control of blood pressure during trials. We will reach out to the family to discuss goals of care. We will try CPAP again today. Pt. is DNR Updated 06/16/21 Continue current vent support Follow ID recs -- ongoing fever/Fungemia Follow nephrology recs Follow GI recs -- anemia on labs today/ illeus DVT/GI PPX D/W RN and RT [facility] has denied patient Patient has been very difficult to wean due to multifactorial etiologies including arrhythmias, increased respiratory rate, poor control of blood pressure during trials. We will reach out to the family to discuss goals of care. Pt. is DNR JONES FISHMAN MD Jun 21, 2021 10:43
--- NOTE | 2021-06-21 10:53 | PDOC ---
Date of Service: DATE: 06/21/21 TIME: 10:50 Objective: Objective: 400cc from NGT charted. No stools. Appeal pending. Vital Signs: Vital Signs Date Time Temp Pulse Resp B/P (MAP) Pulse Ox O2 Delivery O2 Flow Rate FiO2 06/21/21 10:34 104 182/99 06/21/21 10:00 42 98 Tracheal Collar 06/21/21 08:13 40.0 06/21/21 08:00 98.7 98.7 Labs: Laboratory Tests Test 06/20/21 11:22 06/20/21 17:28 06/21/21 00:41 06/21/21 05:15 Glucose (Fingerstick) 165 mg/dL 113 mg/dL 134 mg/dL White Blood Count 15.3 x10^3/uL Red Blood Count 2.84 x10^6/uL Hemoglobin 7.8 g/dL Hematocrit 24.2 % Mean Corpuscular Volume 85 fL Mean Corpuscular Hemoglobin 28 pg Mean Corpuscular Hemoglobin Concent 32 g/dL Red Cell Distribution Width 16.9 % Platelet Count 287 x10^3/uL Neutrophils (%) (Auto) 57 % Lymphocytes (%) (Auto) 21 % Monocytes (%) (Auto) 11 % Eosinophils (%) (Auto) 10 % Basophils (%) (Auto) 2 % Neutrophils # (Auto) 8.7 x10^3/uL Lymphocytes # (Auto) 3.3 x10^3/uL Monocytes # (Auto) 1.7 x10^3/uL Eosinophils # (Auto) 1.4 x10^3/uL Basophils # (Auto) 0.2 x10^3/uL Sodium Level 136 mmol/L Potassium Level 4.0 mmol/L Chloride Level 99 mmol/L Carbon Dioxide Level 28 mmol/L Anion Gap 9 Blood Urea Nitrogen 38 mg/dL Creatinine 2.0 mg/dL Estimated GFR (Cockcroft-Gault) 39.7 Glucose Level 144 mg/dL Calcium Level 8.8 mg/dL Creatine Kinase 64 U/L Test 06/21/21 06:33 Glucose (Fingerstick) 162 mg/dL PE: GEN: chronically ill LUNGS: trach collar HEART: tachycardic - 130s ABD: stable in appearance, NG bilious NEURO/PSYCH: eyes closed A/P: COVID-19 s/p trach, ileus -- Not a PEG candidate with ongoing ileus. Justicifation of Admission Dx: Justifications for Admission: Justification of Admission Dx: Yes Aspiration Pneumonia: Hemodynamic Instability TAIWO THEODORE Jun 21, 2021 10:53
[2021-06-21] MEDS: TPN PER PHARMACY MC PRN ×2 (11:22→11:24)
--- NOTE | 2021-06-21 11:26 | NUR ---
Pharmacy TPN Dosing Note S: NILAM LAN is a 75 year old M Currently receiving Central Continuous TPN started 05/22/21 B:Pertinent PMH: ILEUS Height: 6 feet, 2 inches Weight: 131.5 kg Current diet: NPO LABS: Sodium: 136 Potassium: 4 Chloride: 99 Calcium: 8.8 Corrected Calcium: 10.64 Magnesium: 1.9 CO2: 28 SCr: 2 Glucose: 113-162 Albumin: 1.7 AST: 31 ALT: 26 TPN FORMULA: TPN TYPE: Central Continuous AMINO ACIDS: 95 gm DEXTROSE: 295 gm LIPIDS: 30 gm SODIUM CHLORIDE: 80 mEq POTASSIUM CHLORIDE: 30 mEq POTASSIUM PHOSPHATE: 15 mmol MAGNESIUM: 8 mEq MULTIPLE VITAMIN: 5 ml TRACE ELEMENTS: 1 ml(s) TPN PLAN: Macros adj per gas meter prover recs R: Change TPN per plan and ordered formula Will monitor electrolytes, glucose, and tolerance to TPN. Jaqueline Watson RPH, 06/21/21 [id number]
--- NOTE | 2021-06-21 11:35 | PDOC ---
[employer] PROGRESS NOTE Date of Service DOS: DATE: 06/21/21 TIME: 11:32 Chief Complaint Chief Complaint Respiratory failure requiring intubation COVID-[address] A. fib SIRS Hypertension with hypertensive urgency Hyperlipidemia CKD Diabetes History of bilateral subclavian stenosis History of marijuana use Severe protein calorie malnutrition Trach placed on May 15 GI consulted for PEG evaluation --> patient with a lot of vomiting yesterday thus current NG tube to low intermittent suction Anemia secondary to acute blood loss, possible multiple lab draws and related to advanced CKD Ileus Positive Mariya on 1 out of 4 bottles on blood cultures History of Present Illness History of Present Illness 06/21/2021: Awake on trach collar at 10 L. Afebrile. No stooling yet; await active bowel function. Discussed with RN, still requiring Precedex to avoid agitation. This is been discontinued in lieu of as needed Haldol. If necessary may increase Ativan dosage as needed. LTAC appeal pending. Continue HD, per nephrology. Continue antibiotics, per ID. Critical care time 30 min spent reviewing charts, reviewing imaging, reviewing labs, and discussion with RN. 06/20/2021: Afebrile. Awake on vent with FiO2 40%, PEEP 5; difficult to wean. Accepted to LTAC, but insurance denied. Appeal for discharge to LTAC without PEG in process. Not yet stooling. Continue HD, per nephrology. Continue antibiotics, per ID. Critical care time 30 min spent reviewing charts, reviewing imaging, reviewing labs, and discussion with RN. 06/19/2021: Afebrile, no acute ins overnight. On vent with FiO2 40%, PEEP 5. Patient has been accepted at [facility] pending insurance authorization, however [employer] denying until PEG can be placed. Appeal process has been started as currently patient is poor PEG tube candidate. Still not stooling still with high NG output, 400 mL overnight. General surgery consulted and will defer to GI regarding PEG; favor PEG or surgical G-tube. Will continue to follow nephrology and GI recommendations. Continue daptomycin, cefepime, and micafungin, per ID. Critical care time 30 min spent reviewing charts, reviewing imaging, reviewing labs, and discussion with RN. 06/18/2021: Patient seen in ICU. Afebrile, on vent with FiO2 40%, PEEP 5. At this point his treatment is COVID-19 recovered. Continue treatment with daptomycin, cefepime, and micafungin, per ID. [facility]. Critical care 30 minutes reviewing labs, reviewing charts, reviewing imaging, discussion with RN. 06/17/2021 Patient seen and examined in the ICU Still mechanically ventilated AC/20/500/40/5 of PEEP with 100% saturation Currently has NG to suction (low intermittent suction) Sedated with fentanyl propofol and Precedex Has IV TPN hanging Has admit on his right hand SCDs in place Nieves to bedside drainage He remains critically ill 06/16/2021 Patient seen and examined in the ICU Discussed with RT Discussed with RN Chart reviewed Patient remains mechanically ventilated via tracheostomy AC/20/300/40 percent with 5 of PEEP Satting 98% Sedated with fentanyl Has TPN hanging Has IV microfungi and hanging He remains very critically ill 06/15/2021 Patient seen and examined in the ICU He remains on the vent via tracheostomy AC/20/500/40 percent with 5 of PEEP Setting in the mid Has fentanyl and Precedex for sedation His hemoglobin is running low today at 6.7 I have ordered a unit of blood He is on IV TPN Discussed with RN Chart reviewed He remains critically ill 06/14/2021 patient seen and examined in the ICU chart reviewed discussed with RN he remains on the vent via tracheostomy vent settings as follows AC/20/500/40 percent with 5 of PEEP has mitts on for patient safety has SCDs on Nieves to bedside drainage sedated with fentanyl propofol and Precedex he remains critically ill 06/13/2021 Patient seen and examined in the ICU Chart reviewed Discussed with RN Vent settings as follows Spontaneous respirations with 40% FiO2 10 of pressure support Sedated with fentanyl propofol and Dex Has Nieves to bedside drainage Mitts for patient safety 06/12/2021 Patient seen and examined in the ICU He is currently on dialysis (dialysis nurse states we took 2 L off today and we plan to do daily dialysis for a few days per Dr. Ariza) Has trach shield in place Chart reviewed Discussed with RN He remains critically ill 06/10: Tolerating 30 cc every 3 hours tube feed with minimal residuals overnight. Remains in A. fib. Abdomen appears a bit more distended, soft. Minimally sedated propofol Precedex on GOLD NIB GRINDER FiO2 40% PEEP 5. CC time 31 min spent in reviewing chart, labs, and images. Discussed with RN and SW. Mr Cunha is a 75 yo male w/ PMHx CAD, HTN, Hyperlipidemia, subclavian steel syndrome, subclavian stenosis s/p left subclavian sent placement complicated by retroperitoneal hematoma s/p evacuation in 08/2015), asthma, BART, CKD, DM2 who presented from home with home health care noted that he was short of breath and valverde with O2 saturations less than 89% as low as 84% not improved with nasal cannulated oxygen placed on CPAP and brought to ED for further care. He was just discharged from the hospital a week ago on April 19, 2021 for abdominal pain and was going for further cardiac testing with outpatient stress testing scheduled on May 28, 2021. Had echocardiogram April 17, 2021 with normal-appearing EF with moderate concentric LVH no significant valvular abnormalities. WBC 20, Hb 10.7, platelets 268, NA 140, K3.8, BUN 21, CR 2.9, glucose 162, albumin 3, troponin I 1.372, NT proBNP 33,318. EKG appears sinus tachycardia rate of 105 bpm with multiple PACs small ST depressions in lead II and V5. TWI in V6. Chest radiograph with diffuse interstitial and alveolar opacities and ET tube 5.8 cm above the leilani. Due to worsening respiratory status ED physician elected to intubate patient. Seen postintubation. Blood pressure little low after propofol bolus, but improved. Significant white frothy sputum per ET tube. Admitted to ICU for further care 04/25: On vent FiO2 50, PEEP 5. Febrile, T-max 103.3. Patient was initiated on cooling blankets. Procalcitonin 0.13. 04/26: COVID-19 positive. Febrile overnight that was managed with cooling blankets. On vent with FiO2 50%, PEEP 5. Per cardiology, elevated troponins likely secondary to demand ischemia; continue heparin drip per cardiology. Continue treatment with remdesivir, steroids, and antibiotics. 04/27: Afebrile. Vent with FiO2 50%, PEEP 5. Troponin 2.8 yesterday; probable type II, demand ischemia. New onset A. fib. Cont heparin gtt and prn digoxin, per cardiology. Contnue treatment with remdesivir, steroids, and prophylactic antibiotics. BG 323 this morning; will add basal insulin. 04/28: Afebrile. FiO2 50%, PEEP 5. Nontunneled HD catheter placed yesterday due to worsening kidney function; eGFR 16 (CKD4). Chest x-ray showed unchanged interstitial opacities. Continue empiric antibiotics, steroids, and remdesivir. Continue heparin infusion, for new dx A. fib. 04/29: Afebrile, remains on vent at FiO2 45%, PEEP 5. WBC 20.4. Hemodialysis per nephrology. We will continue treatment with empiric antibiotics, remdesivir, and steroids. Continue heparin infusion and supportive care. 04/30: Patient seen and examined in the [place] [address] ICU. He remains on the vent. AC/20/500/40 5% with 5 PEEP. Currently on dialysis. Has OG feeds running. Has a Nieves to bedside drainage. Sedated with propofol and fentanyl. He remains critically ill 05/01: Patient seen and examined in the [facility]- ICU. He is still intubated. AC/20/500/40 percent with 5 of PEEP. In A. fib. Sedated with propofol fentanyl and Versed. Has a heparin drip 05/02: Patient seen and examined in the [facility]- ICU. He is sedated with propofol fentanyl and Versed. AC/20/500/40 percent with 5 of PEEP. He remains critically ill 05/03: Patient seen and examined in the [facility]- ICU. He is still intubated. AC/20/500/70 percent with 5 of PEEP. Sedated with fentanyl Versed and propofol. Remains critically ill 05/04: Patient seen and examined in the [facility]- ICU. Still intubated. Sedated with propofol and fentanyl. AC/20/500/70 percent with 5 of PEEP. On dialysis currently 05/05: Patient seen and examined in the [place] [address] ICU. He remains on the vent. AC/20/500/40 percent with 5 of PEEP. He remains critically ill 05/06: Patient seen and examined in the [facility]- ICU. He remains mechanically ventilated. AC/20/500/40 05/07: Patient seen and examined in the [place] [address] ICU. He remains mechanically ventilated. ILDA on CKD - ATN 2/2 sepsis/ Hypotension,UOP good,on IV Lasix ; requiring dialysis, . AC/20/500/40 percent with 5 of PEEP. Sedated with propofol Dex and fentanyl 05/08: Currently on 40%, 5 of PEEP. now on cardene gtt. Patient seen and examined in the [place] [address] ICU. 05/09: VENT [id number]%, 5 of PEEP. Mild pulmonary edema with new small right pleural effusion and basilar opacities. Change central line and send cath tip for cultures. 05/10: VENT [id number]%, 5 of PEEP. Mild pulmonary edema with new small right pleural effusion and basilar opacities. Patient seen and examined in the [place] [id number] ICU 05/11: Continue iv cefepime , add zyvox, sputum culture 05/12: Continue iv cefepime , add zyvox, sputum culture. VENT [id number]%, 5 of PEEP. now on cardene gtt prn 05/13: Did not tolerate sedation vacation 05/11/2021, profoundly hypertensive. ABG/CXR--changes as needed. Continue iv cefepime , add zyvox, sputum culture. VENT [id number]%, 5 of PEEP. Mild pulmonary edema with new small right pleural e ffusion and basilar opacities. now on cardene gtt prn 05/14: Patient seen and examined at bedside. Remains intubated and sedated planning for tracheostomy tomorrow. Continue current respiratory support; continue antibiotics, continue sedation. Follow recommendations of pulmonary, renal, and infectious disease 05/15: Patient seen and examined at bedside. Remains intubated and sedated planning for tracheostomy today. Continue current respiratory support; continue antibiotics, continue sedation. 05/16: Patient seen and examined at bedside. Underwent tracheostomy yesterday today tolerated well. When seen this morning patient is still notably sedated respiratory status is stable. measures. 05/17: Patient seen and examined at bedside. Attempting to wean sedation. Patient with some diarrhea. Per infectious disease will give erythromycin eye ointment for eye lesions. Nephro and pulm also following. 05/18: Patient seen and examined at bedside. Attempting to increase tube feeds, GI consulted for PEG evaluation. Otherwise no major clinical changes. Continue to wean sedation. Plan of care discussed with bedside nurse. 05/19: Patient seen and examined at bedside. Apparently had a fair bit of vomiting overnight. GI following for PEG evaluation. Otherwise patient brennan ined stable. Plan of care discussed with bedside nurse. 05/20: Patient seen and examined at bedside. Again had multiple bouts of vomiting yesterday. GI continuing to follow for PEG evaluation although on hold right now due to persistent vomiting. Leukocytosis 05/21: Afebrile, no acute events overnight. Remains on vent, FiO2 40%, PEEP 5. S/P tracheostomy on 05/15/2021. KUB on 05/19/2021 consistent with ileus. Per GI, continue NG tube to suction and parenteral nutrition for now. Continue IV antibiotics, per ID. Continue hemodialysis 05/22: Afebrile. On vent with FiO2 40%, PEEP 5. Excessive NG output. Continue NG tube to suction for now; PEG on hold for now. Continue hemodialysis, per nephrology. Continue IV antibiotics, per ID. 05/23: Afebrile. Vent with FiO2 40%, PEEP 5. NG tube for 635 mL out overnight. Continue NG tube to suction. HD 05/24: No acute events overnight. Afebrile. NG tube output has decreased. Kidney function appears stable. Continue IV antibiotics, per ID. Patient has been accepted to [facility], pending insurance authorization. 05/25: Afebrile. On vent with FiO2 40%, PEEP 5. Hemoglobin 8.6 yesterday, hemoglobin 7.3 today. Reportedly had HD yesterday. Continue IV antibiotics, per ID; WBC possibly reactive to ileus. Has been accepted at [facility] LT; transfer pending, but will need PEG tube placement prior. 05/26: Afebrile. On vent with FiO2 40%, PEEP 5. Hemoglobin 7.3 yesterday, and hemoglobin 7.2 today; continue to trend. Leukocytosis slightly improved, WBC 12.9 today. Has been accepted at [facility] LT; transfer pending, but will need PEG tube placement prior. 05/27: Afebrile. On vent with FiO2 40%, PEEP 5. Hemoglobin remains stable at 7.2 today; continue to trend. WBC 13.4. Kidney function appears to be stabilized. LTAC transfer is pending PEG tube placement. Off meropenem; will continue to monitor. Kidney function appears to be stable. 05/28: No acute events overnight. Patient doing well on trach with settings of 40% FiO2 and PEEP of 8. Pending PEG placement after ileus is resolved will defer this to GI for timing of PEG placement.. Also pending tunneled catheter placement for dialysis. 05/29: No acute events or night. Patient tolerating trach collar humidified. Saturating at 99%. Pending PICC line placement and IJ central line removal. Per ID. Possibly in not needing HD. Making urine adequately with Lasix as needed. 05/30: No acute events overnight. Patient doing well on trach collar. Hemoglobin decreased down to 6.7 pending 1 unit PRBC transfusion. Restarted on linezolid and Flagyl and cefepime. Pending PICC placement and central line IJ removal. 05/31: No acute events overnight. Patient saturating 100% on trach collar. Hemoglobin improved after 1 unit PRBC transfusion to 8.4. Patient is currently undergoing dialysis and his labs have been stable. Patient's chart, labs, images were reviewed and discussed with RN 06/01: No acute events overnight. Patient saturating well on trach collar. Patient seen and examined bedside and on HD. Hemoglobin trended down from 8.4- 7.3. Afebrile in the last 24 hours. Patient's chart, labs, images were reviewed and discussed with RN 06/02: No acute events overnight. Patient saturating 100% on trach collar. Tmax 100.3. Yeast 1 of 4 bottles on blood cultures. Plan to remove central line and dialysis catheter. Family consideration for tunneled catheterization possibly hold. Micafungin was started per ID. 06/03: No acute events overnight. Left IJ placed by IR. Defer to ID for antibiotic management for cultures of the catheter tip and yeast. 06/04: No overnight events afebrile. Sedated on propofol and Precedex. On vent with tracheostomy PEEP 5 FiO2 40%. Being treated for fungemia and receiving TPN. Left IJ CVC functioning well. HD catheter right. 06/05: Afebrile. Still requiring minimal sedation on propofol and Precedex. Requiring vent support via trach PEEP five FiO2 40%. KUB with less gaseous distention. No BM but bowel sounds are audible. 06/06: Afebrile. On minimal sedation with propofol and Precedex and vent support via trach PEEP 5 FiO2 40%. Still in A. fib on telemetry. Catheter tip no growth to date sputum with Mariya. Repeat blood cultures no growth to date 06/07: Afebrile. On minimal sedation propofol and Precedex with for trach PEEP 5 FiO2 40%. He is to be in A. fib. Hb 6.9. Will transfuse with dialysis today. Did have stool smear overnight 06/08: Afebrile. On minimal sedation propofol Precedex tolerated pressure support yesterday back on AC PEEP 5 FiO2 40% use more alert trying to pull out his tracheostomy successfully disconnected himself from the vent. Not easily redirectable. Admits for safety. In A. fib. Labs pending 06/09: Vomited large amount of tube feeding overnight and NG attached to low suction. Remains in A. fib. Minimal sedation with propofol and Precedex. Tolerated pressure support back on AC FiO2 40% PEEP 5 getting dialysis currently. 06/11/2021: Patient seen and examined in the ICU. Mitts on for patient safety. Sedated with dexmedetomidine, propofol, and fentanyl. IV TPN hanging. NG tube running at 10 mL per hour. Currently on trach shield 10L. Discussed with RN. Chart reviewed. Vitals/I&O Vitals/I&O: Vital Signs Date Time Temp Pulse Resp B/P (MAP) Pulse Ox O2 Delivery O2 Flow Rate FiO2 06/21/21 11:25 100 Tracheal Collar 10.0 06/21/21 10:34 104 182/99 06/21/21 10:00 42 06/21/21 08:00 98.7 98.7 I & O 06/20/21 06/20/21 06/21/21 15:00 23:00 07:00 Intake Total 1050 ml 1218 ml Output Total 375 ml 460 ml 305 ml Balance -375 ml 590 ml 913 ml Physical Exam Physical Exam: GENERAL: awake and comfortable on vent HEENT: Normocephalic, atraumatic, redness and erythema of both eyes improved, NG tube present NECK: right dialysis catheter present clean,Lt neck central line changed ( 05/11) Trach + HEART: S1, S2.no gallop LUNGS: Decreased breath sounds. ABDOMEN: Less distended, bowel sounds present GENITOURINARY: Nieves in place. EXTREMITIES: Edema present. DERMATOLOGIC: Warm, dry, no generalized rash. NEUROLOGIC: Opens eyes PICC line clean General: Alert, No acute distress Heart: Regular rate, Normal S1, Normal S2, No murmurs, Gallops Lungs: Clear Abdomen: Soft, No tenderness, Other (obese) Extremities: Other (EDEMA) Skin: No rashes, No breakdown, No significant lesion Labs Labs: Laboratory Tests Test 06/20/21 17:28 06/21/21 00:41 06/21/21 05:15 06/21/21 06:33 Glucose (Fingerstick) 113 mg/dL (70-99) 134 mg/dL (70-99) 162 mg/dL (70-99) White Blood Count 15.3 x10^3/uL (4.0-11.0) Red Blood Count 2.84 x10^6/uL (4.30-5.70) Hemoglobin 7.8 g/dL (13.0-17.5) Hematocrit 24.2 % (39.0-53.0) Mean Corpuscular Volume 85 fL (79-100) Mean Corpuscular Hemoglobin 28 pg (25-35) Mean Corpuscular Hemoglobin Concent 32 g/dL (31-37) Red Cell Distribution Width 16.9 % (11.5-14.5) Platelet Count 287 x10^3/uL (140-400) Neutrophils (%) (Auto) 57 % (31-73) Lymphocytes (%) (Auto) 21 % (24-48) Monocytes (%) (Auto) 11 % (0-9) Eosinophils (%) (Auto) 10 % (0-3) Basophils (%) (Auto) 2 % (0-3) Neutrophils # (Auto) 8.7 x10^3/uL (1.8-7.7) Lymphocytes # (Auto) 3.3 x10^3/uL (1.0-4.8) Monocytes # (Auto) 1.7 x10^3/uL (0.0-1.1) Eosinophils # (Auto) 1.4 x10^3/uL (0.0-0.7) Basophils # (Auto) 0.2 x10^3/uL (0.0-0.2) Sodium Level 136 mmol/L (136-145) Potassium Level 4.0 mmol/L (3.5-5.1) Chloride Level 99 mmol/L (98-107) Carbon Dioxide Level 28 mmol/L (21-32) Anion Gap 9 (6-14) Blood Urea Nitrogen 38 mg/dL (8-26) Creatinine 2.0 mg/dL (0.7-1.3) Estimated GFR (Cockcroft-Gault) 39.7 Glucose Level 144 mg/dL (70-99) Calcium Level 8.8 mg/dL (8.5-10.1) Creatine Kinase 64 U/L (39-308) Assessment and Plan Assessmemt and Plan Problems Medical Problems: (1) Elevated troponin Status: Acute (2) Person under investigation for COVID-19 Status: Acute (3) Pulmonary edema Status: Acute Comment Review of Relevant I have reviewed the following items juanita (where applicable) has been applied. Medications: Current Medications Medications (Trade) Dose Ordered Sig/Jodie Route PRN Reason Start Time Stop Time Status Last Admin Dose Admin Sodium Chloride 80 meq/Potassium Chloride 30 meq/ Potassium Phosphate 15 mmol/ Magnesium Sulfate 8 meq/ Multivitamins 5 ml/Zinc/Copper/ Manganese/ Selenium 1 ml/ Total Parenteral Nutrition/Amino Acids/Dextrose 1,440 ml @ 60 mls/hr TPN CONT IV 06/20/21 22:00 06/21/21 21:59 06/20/21 22:33 Haloperidol Lactate (Haldol Inj) 5 mg PRN Q6HRS PRN IVP AGITATION 06/21/21 09:15 06/21/21 09:20 Justifications for Admission General Conditions Altered mental status?: Yes Justification of admission: Patient has tachycardia (> 100 beats per minute) or hypotension (SBP < 90 mm Hg) leading to inadequate systemic perfusion as indicated by severe/persistent altered mental status. Other Justification SARAH BETH ARREOLA MD Jun 21, 2021 11:35
[2021-06-21] MEDS: LABETALOL 20 MG/4 ML DISP.SYRIN. IVP PRN (15:14)
--- NOTE | 2021-06-21 15:30 | NUR ---
SS following up with discharge planning. SS reviewed pt chart and discussed with pt RN. Pt is currently on the trach collar at 40%. COVID19 recovered. IV antibiotics discontinued. Pt on TPN. Propofol and Precedex discontinued. Weaning off of Fentanyl. Pt accepted at [facility], ; fax [phone], pending insurance approval. Pt was denied by [employer] for LTACH. Appeal in process. SS will continue to follow for discharge planning.
[2021-06-21] MEDS: ATORVASTATIN CALCIUM 40 MG TABLET. PO SCH (21:02)
[2021-06-21] MEDS: MONTELUKAST SODIUM 10 MG TABLET. PO SCH (21:02)
[2021-06-21] MEDS ORDERED: [UNRECOGNIZED DRUG - OTHER] IV SCH (22:00)
[2021-06-21] MEDS ORDERED: TOTAL PARENTERAL NUTRITION IV SCH (22:00)
[2021-06-21] MEDS ORDERED: AMINO ACID IV SCH (22:00)
[2021-06-21] MEDS ORDERED: DEXTROSE IV SCH (22:00)
[2021-06-22] VITALS (24 sets, daily range): BP systolic 140–205; BP diastolic 65–114
[2021-06-22] MEDS: INSULIN LISPRO 300 UNITS/3 ML VIAL. SQ SCH ×8 (00:04→18:07)
[2021-06-22] MEDS: METOPROLOL IV PUSH 5 MG/5 ML VIAL. IVP SCH ×5 (00:05→23:59)
[2021-06-22] MEDS: hydrALAZINE 20 MG/ML VIAL. IVP PRN ×2 (02:08→09:05)
[2021-06-22] MEDS: HALOPERIDOL LACTATE 5 MG/ML VIAL. IVP PRN ×3 (03:20→23:59)
--- NOTE | 2021-06-22 04:52 | EKG ---
[facility] [address] [place] [address] Test Date: 2021-06-22 Test Time: 04:49:07 Pat Name: NILAM LAN Department: Room: [facility] 1 Gender: M [employer]: MICHELL : 1945 Requested By: JONES FISHMAN Order Number: [id number] Reading MD: Measurements Intervals [place] Rate: 98 P: 43 ID: [id number] QRS: 44 QRSD: 106 T: -20 QT: 346 QTc: 444 Interpretive Statements SINUS RHYTHM ATRIAL PREMATURE COMPLEX(ES) POSSIBLE LEFT ATRIAL ABNORMALITY R-S TRANSITION ZONE IN V LEADS DISPLACED TO THE LEFT POSSIBLY ABNORMAL ECG RI6.02 Compared to ECG 05/27/2021 15:43:38 Atrial flutter no longer present T-wave abnormality no longer present Possible ischemia no longer present
[2021-06-22 06:42] LABS: BASO # 0.2 x10^3/uL (0.0-0.2); BASO % 1 % (0-3); EOS % 0 % (0-3); HEMATOCRIT 25.4 % (39.0-53.0); HEMOGLOBIN 8.2 g/dL (13.0-17.5); LYMPH # 2.8 x10^3/uL (1.0-4.8); LYMPH % 13 % (24-48); MEAN CORPUSCULAR HEMOGLOBIN 28 pg (25-35); MEAN CORPUSCULAR HGB CONC 32 g/dL (31-37); MEAN CORPUSCULAR VOLUME 86 fL (79-100); MONO # 1.6 x10^3/uL (0.0-1.1); MONO % 8 % (0-9); NEUT # 16.5 x10^3/uL (1.8-7.7); NEUT % 79 % (31-73); PLATELET COUNT 360 x10^3/uL (140-400); RED BLOOD COUNT 2.96 x10^6/uL (4.30-5.70); RED CELL DISTRIBUTION WIDTH 17.4 % (11.5-14.5)
[2021-06-22 06:50] LABS: CALCIUM 9.2 mg/dL (8.5-10.1); CREATININE 2.5 mg/dL (0.7-1.3); GFR 30.7; POTASSIUM 4.6 mmol/L (3.5-5.1)
--- NOTE | 2021-06-22 07:07 | PDOC ---
[employer] PROGRESS NOTE Date of Service DOS: DATE: 06/22/21 TIME: 06:55 Chief Complaint Chief Complaint Respiratory failure requiring intubation COVID-19 Acute ME A. fib SIRS Hypertension with hypertensive urgency Hyperlipidemia CKD Diabetes History of bilateral subclavian stenosis History of marijuana use Severe protein calorie malnutrition Trach placed on May 15 GI consulted for PEG evaluation --> patient with a lot of vomiting yesterday thus current NG tube to low intermittent suction Anemia secondary to acute blood loss, possible multiple lab draws and related to advanced CKD Ileus Positive Mariya on 1 out of 4 bottles on blood cultures History of Present Illness History of Present Illness 06/22/2021: Afebrile. On trach collar 10 L. No stool yet. Blood noted in Nieves catheter; possibly traumatic, per RN. Will follow hemoglobin. Still not a PEG candidate with ongoing ileus. Nephrology following; if no renal recovery will need Tunneled HD catheter. LTAC appeal pending. Continue antibiotics, per ID. Critical care time 30 min spent reviewing charts, reviewing imaging, reviewing labs, and discussion with RN. 06/21/2021: Awake on trach collar at 10 L. Afebrile. No stooling yet; await active bowel function. Discussed with RN, still requiring Precedex to avoid agitation. This is been discontinued in lieu of as needed Haldol. If necessary may increase Ativan dosage as needed. LTAC appeal pending. Continue HD, per nephrology. Continue antibiotics, per ID. Critical care time 30 min spent reviewing charts, reviewing imaging, reviewing labs, and discussion with RN. 06/20/2021: Afebrile. Awake on vent with FiO2 40%, PEEP 5; difficult to wean. Accepted to LTAC, but insurance denied. Appeal for discharge to LTAC without PEG in process. Not yet stooling. Continue HD, per nephrology. Continue antibiotics, per ID. Critical care time 30 min spent reviewing charts, reviewing imaging, reviewing labs, and discussion with RN. 06/19/2021: Afebrile, no acute ins overnight. On vent with FiO2 40%, PEEP 5. Luis lockett has been accepted at [facility] pending insurance authorization, however [employer] denying until PEG can be placed. Appeal process has been started as currently patient is poor PEG tube candidate. Still not stooling still with high NG output, 400 mL overnight. General surgery consulted and will defer to GI regarding PEG; favor PEG or surgical G-tube. Will continue to follow nephrology and GI recommendations. Continue daptomycin, cefepime, and micafungin, per ID. Critical care time 30 min spent reviewing charts, reviewing imaging, reviewing labs, and discussion with RN. 06/18/2021: Patient seen in ICU. Afebrile, on vent with FiO2 40%, PEEP 5. At this point his treatment is COVID-19 recovered. Continue treatment with daptomycin, cefepime, and micafungin, per ID. [facility] Critical care 30 minutes reviewing labs, reviewing charts, reviewing imaging, discussion with RN. 06/17/2021 Patient seen and examined in the ICU Still mechanically ventilated AC/20/500/40/5 of PEEP with 100% saturation Currently has NG to suction (low intermittent suction) Sedated with fentanyl propofol and Precedex Has IV TPN hanging Has admit on his right hand SCDs in place Nieves to bedside drainage He remains critically ill 06/16/2021 Patient seen and examined in the ICU Discussed with RT Discussed with RN Chart reviewed Patient remains mechanically ventilated via tracheostomy AC/20/300/40 percent with 5 of PEEP Satting 98% Sedated with fentanyl Has TPN hanging Has IV microfungi and hanging He remains very critically ill 06/15/2021 Patient seen and examined in the ICU He remains on the vent via tracheostomy AC/20/500/40 percent with 5 of PEEP Setting in the mid 90s Has fentanyl and Precedex for sedation His hemoglobin is running low today at 6.7 I have ordered a unit of blood He is on IV TPN Discussed with RN Chart reviewed He remains critically ill 06/14/2021 patient seen and examined in the ICU chart reviewed discussed with RN he remains on the vent via tracheostomy vent settings as follows AC/20/500/40 percent with 5 of PEEP has mitts on for patient safety has SCDs on Nieves to bedside drainage sedated with fentanyl propofol and Precedex he remains critically ill 06/13/2021 Patient seen and examined in the ICU Chart reviewed Discussed with RN Vent settings as follows Spontaneous respirations with 40% FiO2 10 of pressure support Sedated with fentanyl propofol and Dex Has Nieves to bedside drainage Mitts for patient safety 06/12/2021 Patient seen and examined in the ICU He is currently on dialysis (dialysis nurse states we took 2 L off today and we plan to do daily dialysis for a few days per Dr. Ariza) Has trach shield in place Chart reviewed Discussed with RN He remains critically ill 06/10: Tolerating 30 cc every 3 hours tube feed with minimal residuals overnight. Remains in A. fib. Abdomen appears a bit more distended, soft. Minimally sedated propofol Precedex on [employer] FiO2 40% PEEP 5. CC time 31 min spent in reviewing chart, labs, and images. Discussed with RN and SW. Mr Cunha is a 75 yo male w/ PMHx CAD, HTN, Hyperlipidemia, subclavian steel syndrome, subclavian stenosis s/p left subclavian sent placement complicated by retroperitoneal hematoma s/p evacuation in 08/2015), asthma, BART, CKD, DM2 who presented from home with home health care noted that he was short of breath and valverde with O2 saturations less than 89% as low as 84% not improved with nasal cannulated oxygen placed on CPAP and brought to ED for further care. He was just discharged from the hospital a week ago on April 19, 2021 for abdominal pain and was going for further cardiac testing with outpatient stress testing scheduled on May 28, 2021. Had echocardiogram April 17, 2021 with normal-appearing EF with moderate concentric LVH no significant valvular abnormalities. WBC 20, Hb 10.7, platelets 268, NA 140, K3.8, BUN 21, CR 2.9, glucose 162, albumin 3, troponin I 1.372, NT proBNP 33,318. EKG appears sinus tachycardia rate of 105 bpm with multiple PACs small ST depressions in lead II and V5. TWI in V6. Chest radiograph with diffuse interstitial and alveolar opacities and ET tube 5.8 cm above the leilani. Due to worsening respiratory status ED physician elected to intubate patient. Seen postintubation. Blood pressure little low after propofol bolus, but improved. Significant white frothy sputum per ET tube. Admitted to ICU for further care 04/25: On vent FiO2 50, PEEP 5. Febrile, T-max 103.3. Patient was initiated on cooling blankets. Procalcitonin 0.13. 04/26: COVID-19 positive. Febrile overnight that was managed with cooling blankets. On vent with FiO2 50%, PEEP 5. Per cardiology, elevated troponins likely secondary to demand ischemia; continue heparin drip per cardiology. Continue treatment with remdesivir, steroids, and antibiotics. 04/27: Afebrile. Vent with FiO2 50%, PEEP 5. Troponin 2.8 yesterday; probable type II, demand ischemia. New onset A. fib. Cont heparin gtt and prn digoxin, per cardiology. Contnue treatment with remdesivir, steroids, and prophylactic antibiotics. BG 323 this morning; will add basal insulin. 04/28: Afebrile. FiO2 50%, PEEP 5. Nontunneled HD catheter placed yesterday due to worsening kidney function; eGFR 16 (CKD4). Chest x-ray showed unchanged interstitial opacities. Continue empiric antibiotics, steroids, and remdesivir. Continue heparin infusion, for new dx A. fib. 04/29: Afebrile, remains on vent at FiO2 45%, PEEP 5. WBC 20.4. Hemodialysis per nephrology. We will continue treatment with empiric antibiotics, remdesivir, and steroids. Continue heparin infusion and supportive care. 04/30: Patient seen and examined in the [place] [address] ICU. He remains on the vent. AC/20/500/40 5% with 5 PEEP. Currently on dialysis. Has OG feeds running. Has a Nieves to bedside drainage. Sedated with propofol and fentanyl. He remains critically ill 05/01: Patient seen and examined in the [place] [address] ICU. He is still intubated. AC/20/500/40 percent with 5 of PEEP. In A. fib. Sedated with propofol fentanyl and Versed. Has a heparin drip 05/02: Patient seen and examined in the [place] [address] ICU. He is sedated with propofol fentanyl and Versed. AC/20/500/40 percent with 5 of PEEP. He remains critically ill 05/03: Patient seen and examined in the [place] [address] ICU. He is still intubated. AC/20/500/70 percent with 5 of PEEP. Sedated with fentanyl Versed and propofol. Remains critically ill 05/04: Patient seen and examined in the [place] [address] ICU. Still intubated. Sedated with propofol and fentanyl. AC/20/500/70 percent with 5 of PEEP. On dialysis currently 05/05: Patient seen and examined in the [place] [address] ICU. He remains on the vent. AC/20/500/40 percent with 5 of PEEP. He remains critically ill 05/06: Patient seen and examined in the [place] [address] ICU. He remains mechanically ventilated. AC//500/40 05/07: Patient seen and examined in the [place] [address] ICU. He remains mechanically ventilated. ILDA on CKD - ATN 2/2 sepsis/ Hypotension,UOP good,on IV Lasix ; requiring dialysis, . AC/20/500/40 percent with 5 of PEEP. Sedated with propofol Dex and fentanyl 05/08: Currently on 40%, 5 of PEEP. now on cardene gtt. Patient seen and examined in the [place] [address] ICU. 05/09: VENT [id number]%, 5 of PEEP. Mild pulmonary edema with new small right pleural effusion and basilar opacities. Change central line and send cath tip for cultures. 05/10: VENT [id number]%, 5 of PEEP. Mild pulmonary edema with new small right pleural effusion and basilar opacities. Patient seen and examined in the [place] [id number] ICU 05/11: Continue iv cefepime , add zyvox, sputum culture 05/12: Continue iv cefepime , add zyvox, sputum culture. VENT ejywzlh66%, 5 of PEEP. now on cardene gtt prn 05/13: Did not tolerate sedation vacation 05/11/2021, profoundly hypertensive. ABG/CXR--changes as needed. Continue iv cefepime , add zyvox, sputum culture. VENT gwicyag00%, 5 of PEEP. Mild pulmonary edema with new small right pleural effusion and basilar opacities. now on cardene gtt prn 05/14: Patient seen and examined at bedside. Remains intubated and sedated planning for tracheostomy tomorrow. Continue current respiratory support; continue antibiotics, continue sedation. Follow recommendations of pulmonary, renal, and infectious disease 05/15: Patient seen and examined at bedside. Remains intubated and sedated planning for tracheostomy today. Continue current respiratory support; continue antibiotics, continue sedation. 05/16: Patient seen and examined at bedside. Underwent tracheostomy yesterday today tolerated well. When seen this morning patient is still notably sedated respiratory status is stable. measures. 05/17: Patient seen and examined at bedside. Attempting to wean sedation. Patient with some diarrhea. Per infectious disease will give erythromycin eye ointment for eye lesions. Nephro and pulm also following. 05/18: Patient seen and examined at bedside. Attempting to increase tube feeds, GI consulted for PEG evaluation. Otherwise no major clinical changes. Continue to wean sedation. Plan of care discussed with bedside nurse. 05/19: Patient seen and examined at bedside. Apparently had a fair bit of vomiting overnight. GI following for PEG evaluation. Otherwise patient remained stable. Plan of care discussed with bedside nurse. 05/20: Patient seen and examined at bedside. Again had multiple bouts of vomiting yesterday. GI continuing to follow for PEG evaluation although on hold right now due to persistent vomiting. Leukocytosis 05/21: Afebrile, no acute events overnight. Remains on vent, FiO2 40%, PEEP 5. S/P tracheostomy on 05/15/2021. KUB on 05/19/2021 consistent with ileus. Per GI, continue NG tube to suction and parenteral nutrition for now. Continue IV antibiotics, per ID. Continue hemodialysis 05/22: Afebrile. On vent with FiO2 40%, PEEP 5. Excessive NG output. Continue NG tube to suction for now; PEG on hold for now. Continue hemodialysis, per nephrology. Continue IV antibiotics, per ID. 05/23: Afebrile. Vent with FiO2 40%, PEEP 5. NG tube for 635 mL out overnight. Continue NG tube to suction. HD 05/24: No acute events overnight. Afebrile. NG tube output has decreased. Kidney function appears stable. Continue IV antibiotics, per ID. Patient has been accepted to [facility], pending insurance authorization. 05/25: Afebrile. On vent with FiO2 40%, PEEP 5. Hemoglobin 8.6 yesterday, hemoglobin 7.3 today. Reportedly had HD yesterday. Continue IV antibiotics, p er ID; WBC possibly reactive to ileus. Has been accepted at [facility] [facility]; transfer pending, but will need PEG tube placement prior. 05/26: Afebrile. On vent with FiO2 40%, PEEP 5. Hemoglobin 7.3 yesterday, and hemoglobin 7.2 today; continue to trend. Leukocytosis slightly improved, WBC 12.9 today. Has been accepted at [facility] [place] [facility]; transfer pending, but will need PEG tube placement prior. 05/27: Afebrile. On vent with FiO2 40%, PEEP 5. Hemoglobin remains stable at 7.2 today; continue to trend. WBC 13.4. Kidney function appears to be stabilized. LTAC transfer is pending PEG tube placement. Off meropenem; will continue to monitor. Kidney function appears to be stable. 05/28: No acute events overnight. Patient doing well on trach with settings of 40% FiO2 and PEEP of 8. Pending PEG placement after ileus is resolved will defer this to GI for timing of PEG placement.. Also pending tunneled catheter placement for dialysis. 05/29: No acute events or night. Patient tolerating trach collar humidified. S aturating at 99%. Pending PICC line placement and IJ central line removal. Per ID. Possibly in not needing HD. Making urine adequately with Lasix as needed. 05/30: No acute events overnight. Patient doing well on trach collar. Hemoglobin decreased down to 6.7 pending 1 unit PRBC transfusion. Restarted on linezolid and Flagyl and cefepime. Pending PICC placement and central line IJ removal. 05/31: No acute events overnight. Patient saturating 100% on trach collar. Hemoglobin improved after 1 unit PRBC transfusion to 8.4. Patient is currently undergoing dialysis and his labs have been stable. Patient's chart, labs, images were reviewed and discussed with RN 06/01: No acute events overnight. Patient saturating well on trach collar. Patient seen and examined bedside and on HD. Hemoglobin trended down from 8.4- 7.3. Afebrile in the last 24 hours. Patient's chart, labs, images were reviewed and discussed with RN 06/02: No acute events overnight. Patient saturating 100% on trach collar. Tmax 100.3. Yeast 1 of 4 bottles on blood cultures. Plan to remove central line and dialysis catheter. Family consideration for tunneled catheterization possibly hold. Micafungin was started per ID. 06/03: No acute events overnight. Left IJ placed by IR. Defer to ID for antibiotic management for cultures of the catheter tip and yeast. 06/04: No overnight events afebrile. Sedated on propofol and Precedex. On vent with tracheostomy PEEP 5 FiO2 40%. Being treated for fungemia and receiving TPN. Left IJ CVC functioning well. HD catheter right. 06/05: Afebrile. Still requiring minimal sedation on propofol and Precedex. Requiring vent support via trach PEEP five FiO2 40%. KUB with less gaseous distention. No BM but bowel sounds are audible. 06/06: Afebrile. On minimal sedation with propofol and Precedex and vent support via trach PEEP 5 FiO2 40%. Still in A. fib on telemetry. Catheter tip no gr owth to date sputum with Mariya. Repeat blood cultures no growth to date 06/07: Afebrile. On minimal sedation propofol and Precedex with for trach PEEP 5 FiO2 40%. He is to be in A. fib. Hb 6.9. Will transfuse with dialysis today. Did have stool smear overnight 06/08: Afebrile. On minimal sedation propofol Precedex tolerated pressure support yesterday back on AC PEEP 5 FiO2 40% use more alert trying to pull out his tracheostomy successfully disconnected himself from the vent. Not easily redirectable. Admits for safety. In A. fib. Labs pending 06/09: Vomited large amount of tube feeding overnight and NG attached to low suction. Remains in A. fib. Minimal sedation with propofol and Precedex. Tolerated pressure support back on AC FiO2 40% PEEP 5 getting dialysis currently. 06/11/2021: Patient seen and examined in the ICU. Mitts on for patient safety. Sedated with dexmedetomidine, propofol, and fentanyl. IV TPN hanging. NG tube running at 10 mL per hour. Currently on trach shield 10L. Discussed with RN. Chart reviewed. Vitals/I&O Vitals/I&O: Vital Signs Date Time Temp Pulse Resp B/P (MAP) Pulse Ox O2 Delivery O2 Flow Rate FiO2 06/22/21 06:00 84 52 158/79 (105) 92 Tracheal Collar 10.0 06/22/21 03:00 99.2 99.2 I & O 06/21/21 06/21/21 06/22/21 15:00 23:00 07:00 Intake Total 339 ml Output Total 170 ml 315 ml 430 ml Balance -170 ml 24 ml -430 ml Physical Exam Physical Exam: GENERAL: awake and comfortable on vent HEENT: Normocephalic, atraumatic, redness and erythema of both eyes improved, NG tube present NECK: right dialysis catheter present clean,Lt neck central line changed ( 05/11) Trach + HEART: S1, S2.no gallop LUNGS: Decreased breath sounds. ABDOMEN: Less distended, bowel sounds present GENITOURINARY: Nieves in place. EXTREMITIES: Edema present. DERMATOLOGIC: Warm, dry, no generalized rash. NEUROLOGIC: Opens eyes PICC line clean General: Alert, No acute distress Heart: Regular rate, Normal S1, Normal S2, No murmurs, Gallops Lungs: Clear Abdomen: Soft, No tenderness, Other (obese) Extremities: Other (EDEMA) Skin: No rashes, No breakdown, No significant lesion Labs Labs: Laboratory Tests Test 06/21/21 11:47 06/21/21 16:40 06/21/21 21:05 06/22/21 00:00 Glucose (Fingerstick) 172 mg/dL (70-99) 236 mg/dL (70-99) 209 mg/dL (70-99) 238 mg/dL (70-99) Test 06/22/21 05:55 Glucose (Fingerstick) 288 mg/dL (70-99) Assessment and Plan Assessmemt and Plan Problems Medical Problems: (1) Elevated troponin Status: Acute (2) Person under investigation for COVID-19 Status: Acute (3) Pulmonary edema Status: Acute Comment Review of Relevant I have reviewed the following items juanita (where applicable) has been applied. Medications: Current Medications Medications (Trade) Dose Ordered Sig/Jodie Route PRN Reason Start Time Stop Time Status Last Admin Dose Admin Haloperidol Lactate (Haldol Inj) 5 mg PRN Q6HRS PRN IVP AGITATION 06/21/21 09:15 06/22/21 03:20 Sodium Chloride 80 meq/Potassium Chloride 30 meq/ Potassium Phosphate 15 mmol/ Magnesium Sulfate 8 meq/ Multivitamins 5 ml/Zinc/Copper/ Manganese/ Selenium 1 ml/ Total Parenteral Nutrition/Amino Acids/Dextrose/ Fat Emulsion Intravenous 1,440 ml @ 60 mls/hr TPN CONT IV 06/21/21 22:00 06/22/21 21:59 06/21/21 22:04 Justifications for Admission General Conditions Altered mental status?: Yes Justification of admission: Patient has tachycardia (> 100 beats per minute) or hypotension (SBP < 90 mm Hg) leading to inadequate systemic perfusion as indicated by severe/persistent altered mental status. Other Justification SARAH BETH ARREOLA MD Jun 22, 2021 07:07
[2021-06-22] MEDS: PANTOPRAZOLE IV PUSH 40 MG VIAL. IVP SCH (07:39)
--- NOTE | 2021-06-22 07:45 | PDOC ---
Infectious Disease Note Subjective Subjective Patient is awake on ventilator ROS ROS No nausea vomiting diarrhea Vital Sign Vital Signs Vital Signs Date Time Temp Pulse Resp B/P (MAP) Pulse Ox O2 Delivery O2 Flow Rate FiO2 06/22/21 07:28 94 Ventilator 06/22/21 07:09 86 47 179/78 (111) 10.0 06/22/21 03:00 99.2 99.2 Physical Exam PHYSICAL EXAM GENERAL: awake and comfortable on vent HEENT: Normocephalic, atraumatic, redness and erythema of both eyes improved, NG tube present NECK: right dialysis catheter present clean,Lt neck central line changed ( 05/11) Trach + HEART: S1, S2.no gallop LUNGS: Decreased breath sounds. ABDOMEN: Less distended, bowel sounds present GENITOURINARY: Nieves in place. EXTREMITIES: Edema present. DERMATOLOGIC: Warm, dry, no generalized rash. NEUROLOGIC: Opens eyes PICC line clean Labs Lab Laboratory Tests Test 06/21/21 11:47 06/21/21 16:40 06/21/21 21:05 06/22/21 00:00 Glucose (Fingerstick) 172 mg/dL (70-99) 236 mg/dL (70-99) 209 mg/dL (70-99) 238 mg/dL (70-99) Test 06/22/21 05:55 06/22/21 06:00 Glucose (Fingerstick) 288 mg/dL (70-99) Sodium Level 133 mmol/L (136-145) Potassium Level 4.6 mmol/L (3.5-5.1) Chloride Level 97 mmol/L (98-107) Carbon Dioxide Level 25 mmol/L (21-32) Anion Gap 11 (6-14) Blood Urea Nitrogen 55 mg/dL (8-26) Creatinine 2.5 mg/dL (0.7-1.3) Estimated GFR (Cockcroft-Gault) 30.7 Glucose Level 282 mg/dL (70-99) Calcium Level 9.2 mg/dL (8.5-10.1) Micro BC neg Objective Assessment Fungemia May 30, 2021, C parapsilosis, 06/02 neg RT IJ central line removed cath tip sent for cult 1. Febrile illness resolved 2. Leukocytosis, was on steroids,ileus could contribute,improving 3. COVID-19 pneumonia. 4. Acute hypoxic respiratory failure status post intubation.Now S/P Trach 8/10 Pleural effusion 5. Congestive heart failure, acute on chronic. 6. Acute kidney injury on chronic kidney disease on hemodialysis. 7. Diabetes mellitus 2. 8. Atrial fibrillation. 9. Anemia. 10. Protein-calorie malnutrition. 11. Hypertention 12.Hyponatremia 13. Ileus, Bowel obstruction Peg TF on hold, OG to LIS 14.on PPN 15.Mild to Moderate Pleural effusion 16.Lt eye conjunctivitis resolved Plan Plan of Care Off antibiotics Monitor labs and cultures Continue supportive care Discussed with nursing staff JAD RIVERO MD Jun 22, 2021 07:45
[2021-06-22] MEDS: ASPIRIN CHEWABLE 81 MG TABLET. PO SCH (08:43)
[2021-06-22] MEDS: INSULIN GLARGINE SYRINGE. SQ SCH ×2 (08:45→21:54)
[2021-06-22] MEDS: NYSTATIN TOPICAL POWDER 15GM BOTTLE. TP SCH ×2 (08:47→21:52)
--- NOTE | 2021-06-22 10:16 | PDOC ---
PULMONARY PROGRESS NOTES DATE: 06/22/21 TIME: 10:13 Subjective Patient did tolerated trach shield all night. This morning had increased work of breathing, rested on assist control mode. Vitals Vital Signs Date Time Temp Pulse Resp B/P (MAP) Pulse Ox O2 Delivery O2 Flow Rate FiO2 06/22/21 09:05 94 205/77 06/22/21 09:00 32 99 10.0 06/22/21 08:00 99.8 Ventilator 99.8 Comments Tracheostomy ros unable to obtain General: Alert, No acute distress Lungs: Clear Cardiovascular: S1, S2 Abdomen: Soft, Other (Nontender) Extremities: Other (1+ edema) Skin: Warm Labs Laboratory Tests Test 06/20/21 11:22 06/20/21 17:28 06/21/21 00:41 06/21/21 05:15 Glucose (Fingerstick) 165 mg/dL (70-99) 113 mg/dL (70-99) 134 mg/dL (70-99) White Blood Count 15.3 x10^3/uL (4.0-11.0) Red Blood Count 2.84 x10^6/uL (4.30-5.70) Hemoglobin 7.8 g/dL (13.0-17.5) Hematocrit 24.2 % (39.0-53.0) Mean Corpuscular Volume 85 fL (79-100) Mean Corpuscular Hemoglobin 28 pg (25-35) Mean Corpuscular Hemoglobin Concent 32 g/dL (31-37) Red Cell Distribution Width 16.9 % (11.5-14.5) Platelet Count 287 x10^3/uL (140-400) Neutrophils (%) (Auto) 57 % (31-73) Lymphocytes (%) (Auto) 21 % (24-48) Monocytes (%) (Auto) 11 % (0-9) Eosinophils (%) (Auto) 10 % (0-3) Basophils (%) (Auto) 2 % (0-3) Neutrophils # (Auto) 8.7 x10^3/uL (1.8-7.7) Lymphocytes # (Auto) 3.3 x10^3/uL (1.0-4.8) Monocytes # (Auto) 1.7 x10^3/uL (0.0-1.1) Eosinophils # (Auto) 1.4 x10^3/uL (0.0-0.7) Basophils # (Auto) 0.2 x10^3/uL (0.0-0.2) Sodium Level 136 mmol/L (136-145) Potassium Level 4.0 mmol/L (3.5-5.1) Chloride Level 99 mmol/L (98-107) Carbon Dioxide Level 28 mmol/L (21-32) Anion Gap 9 (6-14) Blood Urea Nitrogen 38 mg/dL (8-26) Creatinine 2.0 mg/dL (0.7-1.3) Estimated GFR (Cockcroft-Gault) 39.7 Glucose Level 144 mg/dL (70-99) Calcium Level 8.8 mg/dL (8.5-10.1) Creatine Kinase 64 U/L (39-308) Test 06/21/21 06:33 06/21/21 11:47 06/21/21 16:40 06/21/21 21:05 Glucose (Fingerstick) 162 mg/dL (70-99) 172 mg/dL (70-99) 236 mg/dL (70-99) 209 mg/dL (70-99) Test 06/22/21 00:00 06/22/21 05:55 06/22/21 06:00 Glucose (Fingerstick) 238 mg/dL (70-99) 288 mg/dL (70-99) White Blood Count 21.0 x10^3/uL (4.0-11.0) Red Blood Count 2.96 x10^6/uL (4.30-5.70) Hemoglobin 8.2 g/dL (13.0-17.5) Hematocrit 25.4 % (39.0-53.0) Mean Corpuscular Volume 86 fL (79-100) Mean Corpuscular Hemoglobin 28 pg (25-35) Mean Corpuscular Hemoglobin Concent 32 g/dL (31-37) Red Cell Distribution Width 17.4 % (11.5-14.5) Platelet Count 360 x10^3/uL (140-400) Neutrophils (%) (Auto) 79 % (31-73) Lymphocytes (%) (Auto) 13 % (24-48) Monocytes (%) (Auto) 8 % (0-9) Eosinophils (%) (Auto) 0 % (0-3) Basophils (%) (Auto) 1 % (0-3) Neutrophils # (Auto) 16.5 x10^3/uL (1.8-7.7) Lymphocytes # (Auto) 2.8 x10^3/uL (1.0-4.8) Monocytes # (Auto) 1.6 x10^3/uL (0.0-1.1) Eosinophils # (Auto) 0.0 x10^3/uL (0.0-0.7) Basophils # (Auto) 0.2 x10^3/uL (0.0-0.2) Sodium Level 133 mmol/L (136-145) Potassium Level 4.6 mmol/L (3.5-5.1) Chloride Level 97 mmol/L (98-107) Carbon Dioxide Level 25 mmol/L (21-32) Anion Gap 11 (6-14) Blood Urea Nitrogen 55 mg/dL (8-26) Creatinine 2.5 mg/dL (0.7-1.3) Estimated GFR (Cockcroft-Gault) 30.7 Glucose Level 282 mg/dL (70-99) Calcium Level 9.2 mg/dL (8.5-10.1) Phosphorus Level 4.2 mg/dL (2.6-4.7) Laboratory Tests Test 06/21/21 11:47 06/21/21 16:40 06/21/21 21:05 06/22/21 00:00 Glucose (Fingerstick) 172 mg/dL (70-99) 236 mg/dL (70-99) 209 mg/dL (70-99) 238 mg/dL (70-99) Test 06/22/21 05:55 06/22/21 06:00 Glucose (Fingerstick) 288 mg/dL (70-99) White Blood Count 21.0 x10^3/uL (4.0-11.0) Red Blood Count 2.96 x10^6/uL (4.30-5.70) Hemoglobin 8.2 g/dL (13.0-17.5) Hematocrit 25.4 % (39.0-53.0) Mean Corpuscular Volume 86 fL (79-100) Mean Corpuscular Hemoglobin 28 pg (25-35) Mean Corpuscular Hemoglobin Concent 32 g/dL (31-37) Red Cell Distribution Width 17.4 % (11.5-14.5) Platelet Count 360 x10^3/uL (140-400) Neutrophils (%) (Auto) 79 % (31-73) Lymphocytes (%) (Auto) 13 % (24-48) Monocytes (%) (Auto) 8 % (0-9) Eosinophils (%) (Auto) 0 % (0-3) Basophils (%) (Auto) 1 % (0-3) Neutrophils # (Auto) 16.5 x10^3/uL (1.8-7.7) Lymphocytes # (Auto) 2.8 x10^3/uL (1.0-4.8) Monocytes # (Auto) 1.6 x10^3/uL (0.0-1.1) Eosinophils # (Auto) 0.0 x10^3/uL (0.0-0.7) Basophils # (Auto) 0.2 x10^3/uL (0.0-0.2) Sodium Level 133 mmol/L (136-145) Potassium Level 4.6 mmol/L (3.5-5.1) Chloride Level 97 mmol/L (98-107) Carbon Dioxide Level 25 mmol/L (21-32) Anion Gap 11 (6-14) Blood Urea Nitrogen 55 mg/dL (8-26) Creatinine 2.5 mg/dL (0.7-1.3) Estimated GFR (Cockcroft-Gault) 30.7 Glucose Level 282 mg/dL (70-99) Calcium Level 9.2 mg/dL (8.5-10.1) Phosphorus Level 4.2 mg/dL (2.6-4.7) Medications Active Scripts Medications Dose Route/Sig Max Daily Dose Days Date Category Glyburide 2.5 Mg Tablet 1 Tab PO DAILY 04/19/21 Rx Polyethylene Glycol 3350 17 Gm Powd.pack 17 Gm PO DAILY 04/19/21 Rx Dok (Docusate Sodium) 100 Mg Capsule 100 Mg PO PRN DAILY PRN 04/19/21 Rx Bisacodyl 5 Mg Tablet.dr 5 Mg PO PRN DAILY PRN 04/19/21 Rx Acetaminophen 325 Mg Tablet 650 Mg PO PRN Q4HRS PRN 04/19/21 Rx Aspirin Ec (Aspirin) 81 Mg Tablet.dr 81 Mg PO DAILYWBKFT 30 04/19/21 Rx Hydralazine Hcl 25 Mg Tablet 25 Mg PO QID 30 04/19/21 Rx Fenofibrate 54 Mg Tablet 1 Tab PO DAILY 04/17/21 Reported Potassium Chloride (Potassium Chloride) 20 Meq Tablet.er 20 Meq PO DAILY 04/17/21 Reported Coreg (Carvedilol) 12.5 Mg Tablet 37.5 Mg PO BIDWMEALS 04/17/21 Reported Rosuvastatin Calcium 40 Mg Tablet 40 Mg PO QHS 04/17/21 Reported Gabapentin (Gabapentin) 100 Mg Capsule 200 Mg PO BID 04/17/21 Reported Montelukast Sodium Tablet (Montelukast Sodium) 10 Mg Tablet 10 Mg PO HS 04/17/21 Reported Protonix (Pantoprazole Sodium) 20 Mg Tablet.dr 2 Tab PO DAILY 04/17/21 Reported Amlodipine Besylate 5 Mg Tablet 5 Mg PO DAILY 04/17/21 Reported Furosemide 40 Mg Tablet 1 Tab PO DAILY 04/17/21 Reported Proair Hfa Inhaler (Albuterol Sulfate) 8.5 Gm Hfa.aer.ad 2 Puff IH PRN Q4-6HRS PRN 21 04/16/21 Reported Advair 100-50 Diskus (Fluticasone/Salmeterol) 1 Each Disk.w.dev 1 Puff IH BID 04/16/21 Reported Comments Impression . IMPRESSION: 1. Acute hypoxic respiratory failure, multifactorial/COVID-19 viral pneumonia/ARDS, ongoing, intubated 04/25/2021, now status post tracheostomy 05/15/[address] chest with bilateral diffuse interstitial infiltrates without any significant pleural effusion 3. Leukocytosis, sepsis 4. Non-ST segment elevation GA 5. History of tobacco use, suspect COPD, unknown FEV1 6. Chronic kidney disease.== HD as needed per renal 7. Metabolic acidosis multifactorial, improved 8. Abnormal chest x-ray, compatible with ARDS CHF 9. Hypoglycemia, continue to monitor 10. Hypotension multifactorial 11. Fever-- 12. Anemia- 13. Atrial fibrillation with rapid ventricular response, currently rate controlled 14. Ileus 15. Type 2 diabetes 16. A. fib 17. Fever secondary to fungemia, resolved Plan . Updated 06/22/21 Continue with assist-control mode for now. Will reinitiate trach shield trials later.. Patient is off Precedex now. Use as needed Haldol. Low-dose Ativan if needed Follow ID recs - Follow nephrology recs Follow GI recs -- illeus. PEG continues to be on hold. DVT/GI PPX D/W RN and RT [facility] has denied patient Pt. is DNR Updated 06/21/21 Continue trach shield all day. Will ask surgery to downsize trach in the next 24 hours and use Passy-Nichol valve. Patient requires Precedex to avoid agitation. Will discontinue and try as needed Haldol. Low-dose Ativan if needed Follow ID recs - Follow nephrology recs Follow GI recs -- illeus. PEG continues to be on hold. DVT/GI PPX D/W RN and RT [facility] has denied patient Pt. is DNR Updated 06/20/21 Continue trach shield all day. If tolerates ,then will consider trickled on a 24-hour basis. Patient requires Precedex to avoid agitation Follow ID recs --Fungemia Follow nephrology recs Follow GI recs -- illeus. PEG continues to be on hold. DVT/GI PPX D/W RN and RT [facility] has denied patient Pt. is DNR Updated 06/19/21 Continue current vent support. Continue trach shield trials as tolerated. Patient requires Precedex to avoid agitation Follow ID recs --Fungemia Follow nephrology recs Follow GI recs -- illeus. PEG continues to be on hold. DVT/GI PPX D/W RN and RT [facility] has denied patient Patient has been very difficult to wean due to multifactorial etiologies including arrhythmias, increased respiratory rate, poor control of blood pressure during trials. Did better with trach shield yesterday Pt. is DNR Updated 06/18/21 Continue current vent support. Will skip CPAP trial and consider trach shield trial. Follow ID recs --Fungemia Follow nephrology recs Follow GI recs -- illeus. PEG continues to be on hold. DVT/GI PPX D/W RN and RT [facility] has denied patient Patient has been very difficult to wean due to multifactorial etiologies including arrhythmias, increased respiratory rate, poor control of blood pressure during trials. We will reach out to the family to discuss goals of care. We will try trach shield today Pt. is DNR Updated 06/17/21 Continue current vent support. We will try CPAP again today. Follow ID recs -- ongoing fever/Fungemia Follow nephrology recs Follow GI recs -- anemia on labs today/ illeus DVT/GI PPX D/W RN and RT [facility] has denied patient Patient has been very difficult to wean due to multifactorial etiologies including arrhythmias, increased respiratory rate, poor control of blood pressu re during trials. We will reach out to the family to discuss goals of care. We will try CPAP again today. Pt. is DNR Updated 06/16/21 Continue current vent support Follow ID recs -- ongoing fever/Fungemia Follow nephrology recs Follow GI recs -- anemia on labs today/ illeus DVT/GI PPX D/W RN and RT [facility] has denied patient Patient has been very difficult to wean due to multifactorial etiologies including arrhythmias, increased respiratory rate, poor control of blood pressure during trials. We will reach out to the family to discuss goals of care. Pt. is DNR JONES FISHMAN MD Jun 22, 2021 10:16
--- NOTE | 2021-06-22 10:40 | PDOC ---
DATE OF SERVICE DATE: 06/22/21 TIME: 10:38 SUBJECTIVE ROS Patient is awake on ventilator, tolerated trach shield last night OBJECTIVE Vital Signs Vital Signs Date Time Temp Pulse Resp B/P (MAP) Pulse Ox O2 Delivery O2 Flow Rate FiO2 06/22/21 10:00 96 30 173/96 (121) 100 10.0 06/22/21 08:00 99.8 Ventilator 99.8 I & 0 Intake and Output0 06/22/21 07:00 Intake Total 339 ml Output Total 915 ml Balance -576 ml Intake Oral 0 ml Tube Feeding 0 ml Other 339 ml Output Urine Total 790 ml Gastric Drainage Total 125 ml PHYSICAL EXAM Physical Exam GENERAL: awake on vent HEENT: NG tube present NECK: right dialysis catheter present , Trach + HEART: S1, S2.no gallop LUNGS: Decreased breath sounds. ABDOMEN: bowel sounds present GENITOURINARY: Nieves in place. EXTREMITIES: trace edema DERMATOLOGIC: no generalized rash. NEUROLOGIC: awake, responsive DIAGNOSIS/ASSESSMENT Assessment & Plan ILDA-ATN- requiring dialysis; , Oliguric- some improvement in UOp , currently on MWF schedule dialysis today , discussed treatment plan with [facility] - has temp HDC ; if no renal recovery will need Tunneled HDC . Re-eval next week . Bhavesh RN Fungemia-on antifungal per ID HypoNatremia- Resolved HypoKalemia - replace CKD stage 3 Acute Hypoxic Resp failure - S/P Trach COVID 19 Pneumonia Anemia - Hgb stable COMMENT/RELEVANT DATA Meds Current Medications Medications (Trade) Dose Ordered Sig/Jodie Start Time Stop Time Status Last Admin Dose Admin Acetaminophen (Tylenol Supp) 650 mg PRN Q6HRS PRN 05/29/21 16:15 06/17/21 08:12 650 MG Acetaminophen (Tylenol) 650 mg PRN Q6HRS PRN 04/24/21 14:00 Cancel Albumin Human 200 ml @ 200 mls/hr 1X PRN PRN 06/20/21 10:00 06/20/21 15:59 DC Amiodarone HCl (Cordarone) 200 mg DAILY 04/28/21 09:00 05/22/21 16:27 DC 05/21/21 11:07 200 MG Amiodarone HCl 150 mg/Dextrose 103 ml @ 618 mls/hr 1X ONCE 04/27/21 02:30 04/27/21 02:39 DC 04/27/21 02:30 618 MLS/HR Amiodarone HCl 450 mg/Dextrose 259 ml @ 0 mls/hr 1X ONCE 05/22/21 16:30 05/22/21 16:34 DC 05/22/21 16:59 33 MLS/HR Amlodipine Besylate (Norvasc) 10 mg DAILY 05/16/21 09:00 06/22/21 08:44 10 MG Aspirin (Aspirin Chewable) 81 mg DAILYWBKFT 05/03/21 10:00 06/22/21 08:43 81 MG Aspirin (Ecotrin) 81 mg DAILYWBKFT 04/25/21 08:00 05/03/21 09:56 DC 05/02/21 07:20 81 MG Atorvastatin Calcium (Lipitor) 80 mg QHS 04/24/21 21:00 06/21/21 21:02 80 MG Bisacodyl (Dulcolax Supp) 10 mg 1X ONCE 06/19/21 09:45 06/19/21 09:46 DC 06/19/21 09:45 10 MG Bupivacaine HCl/ Epinephrine Bitart (Sensorcain-Epi 0.5%-1:429802 Mpf) 30 ml STK-MED ONCE 05/15/21 07:05 05/15/21 07:06 DC Carvedilol (Coreg) 3.125 mg BIDWMEALS 04/24/21 17:00 04/25/21 15:42 DC 04/25/21 09:23 3.125 MG Cefepime HCl (Maxipime) 1 gm DAILY 06/15/21 09:30 06/21/21 10:26 DC 06/21/21 08:39 1 GM Cellulose (Surgicel Fibrillar 1x2) 1 each STK-MED ONCE 05/15/21 07:05 05/15/21 07:06 DC 05/15/21 09:40 1 EACH Chlorhexidine Gluconate (Peridex) 15 ml BID 04/24/21 21:00 04/25/21 11:19 DC 04/24/21 20:49 15 ML Daptomycin 600 mg/ Sodium Chloride 50 ml @ 100 mls/hr Q48H 05/04/21 15:00 05/06/21 08:07 DC 05/04/21 15:24 100 MLS/HR Daptomycin 620 mg/ Sodium Chloride 50 ml @ 100 mls/hr Q48H 06/15/21 11:00 06/21/21 10:26 DC 06/19/21 11:19 100 MLS/HR Dexamethasone Sodium Phosphate (Decadron) 4 mg STK-MED ONCE 05/15/21 07:53 05/15/21 07:53 DC Dexmedetomidine HCl 400 mcg/ Sodium Chloride 100 ml @ 0 mls/hr CONT PRN 05/04/21 10:30 06/21/21 11:29 32.8 MLS/HR Dextrose (Dextrose 50%-Water Syringe) 12.5 gm PRN Q15MIN PRN 06/09/21 16:30 UNV Digoxin (Lanoxin) 250 mcg 1X ONCE 04/26/21 13:00 04/26/21 13:05 DC 04/26/21 15:02 250 MCG Ephedrine Sulfate (ePHEDrine PF IN SALINE SYRINGE) 50 mg STK-MED ONCE 05/15/21 09:15 05/15/21 09:15 DC Erythromycin (Romycin) 0.25 inch BID 05/17/21 12:00 05/25/21 13:24 DC 05/25/21 07:43 0.25 INCH Etomidate (Amidate) 20 mg STK-MED ONCE 04/24/21 13:38 04/24/21 13:38 DC Fentanyl Citrate 30 ml @ 0 mls/hr CONT PRN 04/24/21 14:00 06/21/21 07:41 2.5 MLS/HR Fentanyl Citrate (Fentanyl 2ml Vial) 25 mcg PRN Q1HR PRN 04/24/21 14:00 05/17/21 16:12 25 MCG Fluconazole/ Sodium Chloride 100 ml @ 100 mls/hr Q24H 06/05/21 09:00 06/15/21 08:53 DC 06/14/21 10:36 100 MLS/HR Furosemide (Lasix) 80 mg TID 05/27/21 09:00 06/01/21 11:08 DC 05/31/21 20:10 80 MG Haloperidol Lactate (Haldol Inj) 5 mg PRN Q6HRS PRN 06/21/21 09:15 06/22/21 09:14 5 MG Heparin Sodium (Porcine) (Heparin Sodium) 5,000 unit Q8HRS 05/18/21 10:00 05/30/21 11:07 DC 05/30/21 06:07 5,000 UNIT Heparin Sodium/ Dextrose 250 ml @ 0 mls/hr CONT PRN 04/24/21 16:45 05/01/21 12:32 DC 05/01/21 05:10 10 MLS/HR Hydralazine HCl (Apresoline Inj) 10 mg PRN QID PRN 05/22/21 16:30 06/22/21 09:05 10 MG Hydralazine HCl (Apresoline) 25 mg QID 05/10/21 10:00 05/22/21 16:27 DC 05/21/21 17:24 25 MG Info (Anti-Coagulation Monitoring By Pharmacy) 1 each PRN DAILY PRN 04/25/21 13:00 05/02/21 07:36 DC 04/26/21 08:51 1 EACH Info (PHARMACY MONITORING -- do not chart) 1 each PRN DAILY PRN 06/20/21 10:00 Info (Tpn Per Pharmacy) 1 each PRN DAILY PRN 05/22/21 10:00 06/21/21 11:24 1 EACH Insulin Glargine (Lantus Syringe) 20 unit BID 05/31/21 09:00 06/22/21 08:45 20 UNIT Insulin Human Lispro (HumaLOG) 3 units Q6HRS 06/09/21 18:00 06/22/21 06:02 3 UNITS Labetalol HCl (Normodyne Iv Push) 20 mg PRN Q2HR PRN 05/01/21 12:30 06/21/21 15:14 20 MG Lidocaine HCl (Buffered Lidocaine 1%) 6 ml 1X ONCE 06/04/21 09:30 06/04/21 09:31 DC 06/04/21 09:34 2 ML Lidocaine HCl (Lidocaine Pf 2% Vial) 5 ml STK-MED ONCE 05/15/21 07:53 05/15/21 07:53 DC Linezolid/Dextrose 300 ml @ 300 mls/hr Q12HR 05/31/21 09:00 UNV Lorazepam (Ativan Inj) 0.25 mg PRN Q4HRS PRN 05/21/21 09:00 06/22/21 07:39 0.25 MG Magnesium Sulfate 50 ml @ 25 mls/hr 1X ONCE 06/02/21 08:45 8/28/21 10:44 DC 06/02/21 09:53 25 MLS/HR Meropenem 500 mg/ Sodium Chloride 50 ml @ 100 mls/hr DAILY 05/23/21 09:00 05/25/21 11:55 DC 05/25/21 07:42 100 MLS/HR Methylnaltrexone Minonk (Relistor) 12 mg 1X ONCE 06/10/21 12:00 06/10/21 12:01 DC 06/10/21 13:02 12 MG Metoprolol Tartrate (Lopressor Vial) 5 mg Q6HRS 04/25/21 18:00 06/22/21 05:53 5 MG Metronidazole 100 ml @ 100 mls/hr Q12HR 05/30/21 09:00 06/05/21 07:34 DC 06/04/21 20:32 100 MLS/HR Micafungin Sodium 100 mg/Dextrose 100 ml @ 100 mls/hr Q24H 06/15/21 10:00 06/21/21 10:26 DC 06/21/21 08:54 100 MLS/HR Midazolam HCl (Versed) 5 mg 1X ONCE 05/24/21 15:15 05/24/21 15:16 DC 05/24/21 15:20 5 MG Montelukast Sodium (Singulair) 10 mg HS 04/24/21 21:00 06/21/21 21:02 10 MG Multi-Ingred Cream/Lotion/Oil/ Oint (Artificial Tears Eye Ointment) 1 danielito PRN Q1HR PRN 05/07/21 16:00 05/10/21 20:51 1 DANIELITO Nicardipine HCl 50 mg/Sodium Chloride 250 ml @ 25 mls/hr CONT PRN 05/06/21 18:45 05/20/21 19:47 37.5 MLS/HR Norepinephrine Bitartrate 8 mg/ Dextrose 258 ml @ 25.852 mls/ hr CONT PRN 05/02/21 21:00 05/09/21 06:10 DC 05/02/21 21:22 25.852 MLS/HR Nystatin (Nystop) 1 danielito BID 05/16/21 21:00 06/22/21 08:47 1 DANIELITO Ondansetron HCl (Zofran) 4 mg STK-MED ONCE 05/15/21 07:53 8/10/21 07:53 DC Pantoprazole Sodium (PROTONIX VIAL for IV PUSH) 40 mg DAILYAC 04/26/21 09:30 06/22/21 07:39 40 MG Phenylephrine HCl (PHENYLEPHRINE in 0.9% NACL PF) 1 mg STK-MED ONCE 05/15/21 07:51 05/15/21 07:51 DC Potassium Bicarbonate (Potassium Effervescent Tablet) 40 meq 1X ONCE 05/19/21 08:30 05/19/21 08:31 DC 05/19/21 08:50 40 MEQ Potassium Chloride/Water 100 ml @ 100 mls/hr Q1H 05/23/21 10:45 05/23/21 12:44 DC 05/23/21 13:17 100 MLS/HR Potassium Phosphate 10 mmol/ Sodium Chloride 103.3333 ml @ 51.667 m... Q2H 06/01/21 12:00 06/01/21 15:59 DC 06/01/21 13:24 51.667 MLS/HR Potassium Phosphate 13.6 mmol/Sodium Chloride 254.5333 ml @ 127.... 1X ONCE 06/08/21 14:00 06/08/21 15:59 DC 06/08/21 15:21 127.267 MLS/HR Potassium Phosphate 20 mmol/ Sodium Chloride 256.6667 ml @ 62.5 mls/hr 1X ONCE 05/13/21 12:15 05/13/21 16:21 UNV Potassium Phosphate 30 mmol/ Sodium Chloride 260 ml @ 62.5 mls/hr 1X ONCE 05/13/21 12:15 05/13/21 16:24 UNV Prochlorperazine Edisylate (Compazine) 5 mg PACU PRN PRN 05/15/21 06:00 05/16/21 05:59 DC Propofol 100 ml @ 4.185 mls/ hr CONT PRN 06/02/21 09:30 06/21/21 00:53 4.185 MLS/HR Propofol (Diprivan) 200 mg STK-MED ONCE 05/15/21 07:53 05/15/21 07:53 DC Remdesivir 100 mg/ Sodium Chloride 230 ml @ 460 mls/hr Q24H 04/26/21 17:30 04/29/21 17:59 DC 04/29/21 13:51 460 MLS/HR Remdesivir 200 mg/ Sodium Chloride 210 ml @ 210 mls/hr 1X ONCE 04/25/21 17:30 04/25/21 18:29 DC 04/25/21 17:09 210 MLS/HR Ringer's Solution 1,000 ml @ 30 mls/hr Q24H 05/15/21 06:00 05/15/21 17:59 DC 05/15/21 07:04 30 MLS/HR Rocuronium Minonk (Zemuron) 50 mg STK-MED ONCE 05/15/21 07:06 05/15/21 07:07 DC Sodium Bicarbonate (Sodium Bicarb Adult 8.4% Syr) 50 meq 1X ONCE 04/27/21 09:45 04/27/21 09:46 DC 04/27/21 09:50 50 MEQ Sodium Chloride (Normal Saline Flush) 10 ml 1X PRN PRN 06/20/21 10:00 06/21/21 09:59 DC Sodium Chloride 80 meq/Potassium Chloride 10 meq/ Potassium Phosphate 10 mmol/ Magnesium Sulfate 8 meq/ Multivitamins 5 ml/Zinc/Copper/ Manganese/ Selenium 1 ml/ Total Parenteral Nutrition/Amino Acids/Dextrose/ Fat Emulsion Intravenous 1,440 ml @ 60 mls/hr TPN CONT 06/13/21 22:00 06/14/21 21:59 DC 06/13/21 22:00 60 MLS/HR Sodium Chloride 80 meq/Potassium Chloride 20 meq/ Potassium Phosphate 13.6 mmol/Magnesium Sulfate 8 meq/ Multivitamins 5 ml/Zinc/Copper/ Manganese/ Selenium 1 ml/ Total Parenteral Nutrition/Amino Acids/Dextrose/ Fat Emulsion Intravenous 1,440 ml @ 60 mls/hr TPN CONT 06/16/21 22:00 06/17/21 21:59 DC 06/16/21 21:53 60 MLS/HR Sodium Chloride 80 meq/Potassium Chloride 20 meq/ Potassium Phosphate 15 mmol/ Magnesium Sulfate 8 meq/ Multivitamins 5 ml/Zinc/Copper/ Manganese/ Selenium 1 ml/ Total Parenteral Nutrition/Amino Acids/Dextrose/ Fat Emulsion Intravenous 1,440 ml @ 60 mls/hr TPN CONT 06/17/21 22:00 06/18/21 21:59 DC 06/17/21 22:11 60 MLS/HR Sodium Chloride 80 meq/Potassium Chloride 30 meq/ Potassium Phosphate 10 mmol/ Magnesium Sulfate 8 meq/ Multivitamins 5 ml/Zinc/Copper/ Manganese/ Selenium 1 ml/ Total Parenteral Nutrition/Amino Acids/Dextrose/ Fat Emulsion Intravenous 1,440 ml @ 60 mls/hr TPN CONT 06/12/21 22:00 06/13/21 21:59 DC 06/12/21 21:56 60 MLS/HR Sodium Chloride 80 meq/Potassium Chloride 30 meq/ Potassium Phosphate 15 mmol/ Magnesium Sulfate 8 meq/ Multivitamins 5 ml/Zinc/Copper/ Manganese/ Selenium 1 ml/ Total Parenteral Nutrition/Amino Acids/Dextrose 1,440 ml @ 60 mls/hr TPN CONT 06/20/21 22:00 06/21/21 21:59 DC 06/20/21 22:33 60 MLS/HR Sodium Chloride 80 meq/Potassium Chloride 30 meq/ Potassium Phosphate 15 mmol/ Magnesium Sulfate 8 meq/ Multivitamins 5 ml/Zinc/Copper/ Manganese/ Selenium 1 ml/ Total Parenteral Nutrition/Amino Acids/Dextrose/ Fat Emulsion Intravenous 1,440 ml @ 60 mls/hr TPN CONT 06/21/21 22:00 06/22/21 21:59 06/21/21 22:04 60 MLS/HR Sodium Chloride 90 meq/Potassium Chloride 25 meq/ Magnesium Sulfate 10 meq/Calcium Gluconate 5 meq/ Multivitamins 5 ml/Zinc/Copper/ Manganese/ Selenium 1 ml/ Total Parenteral Nutrition/Amino Acids/Dextrose/ Fat Emulsion Intravenous 1,080 ml @ 45 mls/hr TPN CONT 05/22/21 22:00 05/23/21 21:59 DC 05/22/21 21:22 45 MLS/HR Sodium Chloride 90 meq/Potassium Chloride 30 meq/ Potassium Phosphate 13.6 mmol/Magnesium Sulfate 10 meq/ Multivitamins 5 ml/Zinc/Copper/ Manganese/ Selenium 1 ml/ Total Parenteral Nutrition/Amino Acids/Dextrose/ Fat Emulsion Intravenous 1,200 ml @ 50 mls/hr TPN CONT 06/01/21 22:00 06/02/21 21:59 DC 06/01/21 21:33 50 MLS/HR Sodium Chloride 90 meq/Potassium Chloride 30 meq/ Potassium Phosphate 13.6 mmol/Magnesium Sulfate 12 meq/ Multivitamins 5 ml/Zinc/Copper/ Manganese/ Selenium 1 ml/ Total Parenteral Nutrition/Amino Acids/Dextrose 1,200 ml @ 50 mls/hr TPN CONT 06/07/21 22:00 06/08/21 21:59 DC 06/07/21 22:16 50 MLS/HR Sodium Chloride 90 meq/Potassium Chloride 30 meq/ Potassium Phosphate 13.6 mmol/Magnesium Sulfate 12 meq/ Multivitamins 5 ml/Zinc/Copper/ Manganese/ Selenium 1 ml/ Total Parenteral Nutrition/Amino Acids/Dextrose/ Fat Emulsion Intravenous 1,440 ml @ 60 mls/hr TPN CONT 06/11/21 22:00 06/12/21 21:59 DC 06/11/21 22:13 60 MLS/HR Sodium Chloride 90 meq/Potassium Chloride 50 meq/ Magnesium Sulfate 10 meq/Calcium Gluconate 5 meq/ Multivitamins 5 ml/Zinc/Copper/ Manganese/ Selenium 1 ml/ Total Parenteral Nutrition/Amino Acids/Dextrose/ Fat Emulsion Intravenous 960 ml @ 40 mls/hr TPN CONT 05/27/21 22:00 05/28/21 21:59 DC 05/27/21 22:03 40 MLS/HR Sodium Chloride 90 meq/Potassium Chloride 50 meq/ Potassium Phosphate 5 mmol/ Magnesium Sulfate 10 meq/Calcium Gluconate 5 meq/ Multivitamins 5 ml/Zinc/Copper/ Manganese/ Selenium 1 ml/ Total Parenteral Nutrition/Amino Acids/Dextrose/ Fat Emulsion Intravenous 1,200 ml @ 50 mls/hr TPN CONT 05/30/21 22:00 05/31/21 21:59 DC 05/30/21 21:57 50 MLS/HR Sodium Phosphate 15 mmol/Dextrose 105 ml @ 105 mls/hr 1X ONCE 05/29/21 11:00 05/29/21 11:59 DC 05/29/21 11:53 105 MLS/HR Sodium Phosphate 15 mmol/Sodium Chloride 105 ml @ 105 mls/hr 1X ONCE 05/29/21 11:45 05/29/21 12:44 UNV Succinylcholine Chloride (Anectine) 200 mg STK-MED ONCE 04/24/21 13:38 04/24/21 13:38 DC Vecuronium Minonk (Norcuron Bolus) 6 mg PRN Q6HRS PRN 04/30/21 11:15 06/21/21 09:12 DC 05/14/21 09:12 6 MG Lab Laboratory Tests Test 06/21/21 11:47 06/21/21 16:40 06/21/21 21:05 06/22/21 00:00 Glucose (Fingerstick) 172 mg/dL (70-99) 236 mg/dL (70-99) 209 mg/dL (70-99) 238 mg/dL (70-99) Test 06/22/21 05:55 06/22/21 06:00 Glucose (Fingerstick) 288 mg/dL (70-99) White Blood Count 21.0 x10^3/uL (4.0-11.0) Red Blood Count 2.96 x10^6/uL (4.30-5.70) Hemoglobin 8.2 g/dL (13.0-17.5) Hematocrit 25.4 % (39.0-53.0) Mean Corpuscular Volume 86 fL (79-100) Mean Corpuscular Hemoglobin 28 pg (25-35) Mean Corpuscular Hemoglobin Concent 32 g/dL (31-37) Red Cell Distribution Width 17.4 % (11.5-14.5) Platelet Count 360 x10^3/uL (140-400) Neutrophils (%) (Auto) 79 % (31-73) Lymphocytes (%) (Auto) 13 % (24-48) Monocytes (%) (Auto) 8 % (0-9) Eosinophils (%) (Auto) 0 % (0-3) Basophils (%) (Auto) 1 % (0-3) Neutrophils # (Auto) 16.5 x10^3/uL (1.8-7.7) Lymphocytes # (Auto) 2.8 x10^3/uL (1.0-4.8) Monocytes # (Auto) 1.6 x10^3/uL (0.0-1.1) Eosinophils # (Auto) 0.0 x10^3/uL (0.0-0.7) Basophils # (Auto) 0.2 x10^3/uL (0.0-0.2) Sodium Level 133 mmol/L (136-145) Potassium Level 4.6 mmol/L (3.5-5.1) Chloride Level 97 mmol/L (98-107) Carbon Dioxide Level 25 mmol/L (21-32) Anion Gap 11 (6-14) Blood Urea Nitrogen 55 mg/dL (8-26) Creatinine 2.5 mg/dL (0.7-1.3) Estimated GFR (Cockcroft-Gault) 30.7 Glucose Level 282 mg/dL (70-99) Calcium Level 9.2 mg/dL (8.5-10.1) Phosphorus Level 4.2 mg/dL (2.6-4.7) Results All relevant outside records, renal labs, imaging studies, telemetry/EKG's were reviewed. Justicifation of Admission Dx: Justifications for Admission: Justification of Admission Dx: Yes Aspiration Pneumonia: Hemodynamic Instability JASMEET LAM MD Jun 22, 2021 10:40
--- NOTE | 2021-06-22 10:52 | NUR ---
PT/OT came in and worked with patient this morning at 1000, and upon sitting patient on side of bed; NG tube came out. NG was reinserted at 1020, and KUB ordered. First KUB had shown NG at top of stomach, KUB repeated after advancing NG tube 10cm- KUB then read NG in mid stomach. NG was advanced 5cm more and clamped at nose and hooked to intermittent suction. NG now at 65cm.
--- NOTE | 2021-06-22 10:55 | RAD ---
Plain film abdominal examination consisting of 1 view(s) of the upper abdomen. History: NG tube placement Comparison: None. Nasogastric tube is seen with the tip in the body the stomach. There is mild essentially gastric bubb le. There is no bowel dilation. Gas is seen in the rectum, and the bowel gas pattern is non-obstruct lashay. No organomegaly or abnormal calcifications are seen. The bony structures are unremarkable in appearance. Impression: 1. Unremarkable exam of the abdomen. Electronically signed by: Castro Dhillon MD (06/22/2021 10:53 AM) [id number]
--- NOTE | 2021-06-22 11:09 | PDOC ---
Date of Service: DATE: 06/22/21 TIME: 11:04 Objective: Objective: D/w nurse - no update/change GI-cee. Vital Signs: Vital Signs Date Time Temp Pulse Resp B/P (MAP) Pulse Ox O2 Delivery O2 Flow Rate FiO2 06/22/21 10:00 96 30 173/96 (121) 100 10.0 06/22/21 08:00 99.8 Ventilator 99.8 Labs: Laboratory Tests Test 06/21/21 11:47 06/21/21 16:40 06/21/21 21:05 06/22/21 00:00 Glucose (Fingerstick) 172 mg/dL 236 mg/dL 209 mg/dL 238 mg/dL Test 06/22/21 05:55 06/22/21 06:00 Glucose (Fingerstick) 288 mg/dL White Blood Count 21.0 x10^3/uL Red Blood Count 2.96 x10^6/uL Hemoglobin 8.2 g/dL Hematocrit 25.4 % Mean Corpuscular Volume 86 fL Mean Corpuscular Hemoglobin 28 pg Mean Corpuscular Hemoglobin Concent 32 g/dL Red Cell Distribution Width 17.4 % Platelet Count 360 x10^3/uL Neutrophils (%) (Auto) 79 % Lymphocytes (%) (Auto) 13 % Monocytes (%) (Auto) 8 % Eosinophils (%) (Auto) 0 % Basophils (%) (Auto) 1 % Neutrophils # (Auto) 16.5 x10^3/uL Lymphocytes # (Auto) 2.8 x10^3/uL Monocytes # (Auto) 1.6 x10^3/uL Eosinophils # (Auto) 0.0 x10^3/uL Basophils # (Auto) 0.2 x10^3/uL Sodium Level 133 mmol/L Potassium Level 4.6 mmol/L Chloride Level 97 mmol/L Carbon Dioxide Level 25 mmol/L Anion Gap 11 Blood Urea Nitrogen 55 mg/dL Creatinine 2.5 mg/dL Estimated GFR (Cockcroft-Gault) 30.7 Glucose Level 282 mg/dL Calcium Level 9.2 mg/dL Phosphorus Level 4.2 mg/dL Imaging: KUB 06/22 Impression: 1. Unremarkable exam of the abdomen. PE: GEN: restless LUNGS: trach/vent ABD: stable in appearance, NG output brownish NEURO/PSYCH: awake A/P: COVID resp failure s/p trach, ileus -- KUB noted. Difficult situation w/ inability to tolerate tube feeds (2-3 separate attempts since trach?) and therefore not good PEG candidate and insurance problems. Will review any new GI recs w/ Dr. Hauser. Justicifation of Admission Dx: Justifications for Admission: Justification of Admission Dx: Yes Aspiration Pneumonia: Hemodynamic Instability TAIWO THEODORE Jun 22, 2021 11:09
--- NOTE | 2021-06-22 11:16 | RAD ---
XR ABDOMEN 1V History: NG tube placement. Comparison: 06/22/2021. Technique: Portable the supine radiograph of the upper abdomen. Findings: Gastric tube proximal side-port in distal tip projecting the left upper quadrant superimposed on the gastric bubble. No supine evidence for free air. No abnormal abdominal calcifications. Blunting of th e left costophrenic angle may represent atelectasis and/or pleural effusion. Levoconvex curvature of the lumbar spine with degenerative changes. Impression: 1. Gastric tube with tip and side port projecting over the stomach. 2. Left basilar airspace disease may represent atelectasis, pleural effusion and/or consolidation. Electronically signed by: Gurvinder Giron MD (06/22/2021 11:14 AM) [id number]
[2021-06-22] MEDS ORDERED: IV NORMAL SALINE 1000ML BAG 1,000 ML IV PRN ×2 (12:00)
[2021-06-22] MEDS ORDERED: DIALYSIS PATIENT. MC PRN ×2 (12:00)
[2021-06-22] MEDS ORDERED: ALBUMIN HUMAN 25% 200 ML IV PRN (12:00)
[2021-06-22] MEDS ORDERED: 0.9 % SODIUM CHLORIDE 10 ML DISP.SYRIN. IV PRN ×2 (12:00)
[2021-06-22] MEDS: TPN PER PHARMACY MC PRN (13:32)
[2021-06-22] MEDS: LABETALOL 20 MG/4 ML DISP.SYRIN. IVP PRN (14:09)
--- NOTE | 2021-06-22 15:20 | NUR ---
SS following up with discharge planning. SS reviewed pt chart and discussed with pt RN. Pt is currently on the vent at 40%. COVID19 recovered. Pt on TPN. Pt accepted at [facility], ; fax [phone], pending insurance approval. [facility]. Appeal in process. Clinical updates phoned and faxed to [facility]. SS will continue to follow for discharge planning.
[2021-06-22] MEDS: MONTELUKAST SODIUM 10 MG TABLET. PO SCH (21:00)
[2021-06-22] MEDS: ATORVASTATIN CALCIUM 40 MG TABLET. PO SCH (21:00)
[2021-06-22] MEDS ORDERED: TOTAL PARENTERAL NUTRITION IV SCH (22:00)
[2021-06-22] MEDS ORDERED: [UNRECOGNIZED DRUG - OTHER] IV SCH (22:00)
[2021-06-22] MEDS ORDERED: DEXTROSE IV SCH (22:00)
[2021-06-22] MEDS ORDERED: AMINO ACID IV SCH (22:00)
[2021-06-23] VITALS (24 sets, daily range): BP systolic 98–182; BP diastolic 46–105
[2021-06-23] MEDS: INSULIN LISPRO 300 UNITS/3 ML VIAL. SQ SCH ×6 (00:09→12:10)
[2021-06-23] MEDS: hydrALAZINE 20 MG/ML VIAL. IVP PRN (01:27)
[2021-06-23] MEDS: fentaNYL PF VIAL 100 MCG/2 ML VIAL IV PRN ×2 (01:28→09:28)
--- NOTE | 2021-06-23 05:28 | PDOC ---
PULMONARY PROGRESS NOTES DATE: 06/23/21 TIME: 05:27 Subjective back on ac since yesterday no levo on prn haldol ativan open eyes w verbal stimuli Vitals Vital Signs Date Time Temp Pulse Resp B/P (MAP) Pulse Ox O2 Delivery O2 Flow Rate FiO2 06/23/21 04:08 100 Ventilator 06/23/21 04:00 99.7 104 23 142/70 (94) 99.7 06/22/21 18:16 10.0 Comments Tracheostomy ros unable to obtain General: No acute distress HEENT: Other (nc at perrl ) Lungs: Other (b lat diminished bs) Cardiovascular: S1, S2 Abdomen: Soft, Non-tender, Other (Nontender) Extremities: Other (1+ edema) Skin: Warm Labs Laboratory Tests Test 06/21/21 06:33 06/21/21 11:47 06/21/21 16:40 06/21/21 21:05 Glucose (Fingerstick) 162 mg/dL (70-99) 172 mg/dL (70-99) 236 mg/dL (70-99) 209 mg/dL (70-99) Test 06/22/21 00:00 06/22/21 05:55 06/22/21 06:00 06/22/21 11:33 Glucose (Fingerstick) 238 mg/dL (70-99) 288 mg/dL (70-99) 295 mg/dL (70-99) White Blood Count 21.0 x10^3/uL (4.0-11.0) Red Blood Count 2.96 x10^6/uL (4.30-5.70) Hemoglobin 8.2 g/dL (13.0-17.5) Hematocrit 25.4 % (39.0-53.0) Mean Corpuscular Volume 86 fL (79-100) Mean Corpuscular Hemoglobin 28 pg (25-35) Mean Corpuscular Hemoglobin Concent 32 g/dL (31-37) Red Cell Distribution Width 17.4 % (11.5-14.5) Platelet Count 360 x10^3/uL (140-400) Neutrophils (%) (Auto) 79 % (31-73) Lymphocytes (%) (Auto) 13 % (24-48) Monocytes (%) (Auto) 8 % (0-9) Eosinophils (%) (Auto) 0 % (0-3) Basophils (%) (Auto) 1 % (0-3) Neutrophils # (Auto) 16.5 x10^3/uL (1.8-7.7) Lymphocytes # (Auto) 2.8 x10^3/uL (1.0-4.8) Monocytes # (Auto) 1.6 x10^3/uL (0.0-1.1) Eosinophils # (Auto) 0.0 x10^3/uL (0.0-0.7) Basophils # (Auto) 0.2 x10^3/uL (0.0-0.2) Sodium Level 133 mmol/L (136-145) Potassium Level 4.6 mmol/L (3.5-5.1) Chloride Level 97 mmol/L (98-107) Carbon Dioxide Level 25 mmol/L (21-32) Anion Gap 11 (6-14) Blood Urea Nitrogen 55 mg/dL (8-26) Creatinine 2.5 mg/dL (0.7-1.3) Estimated GFR (Cockcroft-Gault) 30.7 Glucose Level 282 mg/dL (70-99) Calcium Level 9.2 mg/dL (8.5-10.1) Phosphorus Level 4.2 mg/dL (2.6-4.7) Test 06/22/21 17:59 06/23/21 00:06 Glucose (Fingerstick) 211 mg/dL (70-99) 213 mg/dL (70-99) Laboratory Tests Test 06/22/21 05:55 06/22/21 06:00 06/22/21 11:33 06/22/21 17:59 Glucose (Fingerstick) 288 mg/dL (70-99) 295 mg/dL (70-99) 211 mg/dL (70-99) White Blood Count 21.0 x10^3/uL (4.0-11.0) Red Blood Count 2.96 x10^6/uL (4.30-5.70) Hemoglobin 8.2 g/dL (13.0-17.5) Hematocrit 25.4 % (39.0-53.0) Mean Corpuscular Volume 86 fL (79-100) Mean Corpuscular Hemoglobin 28 pg (25-35) Mean Corpuscular Hemoglobin Concent 32 g/dL (31-37) Red Cell Distribution Width 17.4 % (11.5-14.5) Platelet Count 360 x10^3/uL (140-400) Neutrophils (%) (Auto) 79 % (31-73) Lymphocytes (%) (Auto) 13 % (24-48) Monocytes (%) (Auto) 8 % (0-9) Eosinophils (%) (Auto) 0 % (0-3) Basophils (%) (Auto) 1 % (0-3) Neutrophils # (Auto) 16.5 x10^3/uL (1.8-7.7) Lymphocytes # (Auto) 2.8 x10^3/uL (1.0-4.8) Monocytes # (Auto) 1.6 x10^3/uL (0.0-1.1) Eosinophils # (Auto) 0.0 x10^3/uL (0.0-0.7) Basophils # (Auto) 0.2 x10^3/uL (0.0-0.2) Sodium Level 133 mmol/L (136-145) Potassium Level 4.6 mmol/L (3.5-5.1) Chloride Level 97 mmol/L (98-107) Carbon Dioxide Level 25 mmol/L (21-32) Anion Gap 11 (6-14) Blood Urea Nitrogen 55 mg/dL (8-26) Creatinine 2.5 mg/dL (0.7-1.3) Estimated GFR (Cockcroft-Gault) 30.7 Glucose Level 282 mg/dL (70-99) Calcium Level 9.2 mg/dL (8.5-10.1) Phosphorus Level 4.2 mg/dL (2.6-4.7) Test 06/23/21 00:06 Glucose (Fingerstick) 213 mg/dL (70-99) Medications Active Scripts Medications Dose Route/Sig Max Daily Dose Days Date Category Glyburide 2.5 Mg Tablet 1 Tab PO DAILY 04/19/21 Rx Polyethylene Glycol 3350 17 Gm Powd.pack 17 Gm PO DAILY 04/19/21 Rx Dok (Docusate Sodium) 100 Mg Capsule 100 Mg PO PRN DAILY PRN 30 04/19/21 Rx Bisacodyl 5 Mg Tablet.dr 5 Mg PO PRN DAILY PRN 04/19/21 Rx Acetaminophen 325 Mg Tablet 650 Mg PO PRN Q4HRS PRN 14 04/19/21 Rx Aspirin Ec (Aspirin) 81 Mg Tablet. 81 Mg PO DAILYWBKFT 30 04/19/21 Rx Hydralazine Hcl 25 Mg Tablet 25 Mg PO QID 30 04/19/21 Rx Fenofibrate 54 Mg Tablet 1 Tab PO DAILY 04/17/21 Reported Potassium Chloride (Potassium Chloride) 20 Meq Tablet.er 20 Meq PO DAILY 04/17/21 Reported Coreg (Carvedilol) 12.5 Mg Tablet 37.5 Mg PO BIDWMEALS 04/17/21 Reported Rosuvastatin Calcium 40 Mg Tablet 40 Mg PO QHS 04/17/21 Reported Gabapentin (Gabapentin) 100 Mg Capsule 200 Mg PO BID 04/17/21 Reported Montelukast Sodium Tablet (Montelukast Sodium) 10 Mg Tablet 10 Mg PO HS 04/17/21 Reported Protonix (Pantoprazole Sodium) 20 Mg Tablet. 2 Tab PO DAILY 04/17/21 Reported Amlodipine Besylate 5 Mg Tablet 5 Mg PO DAILY 04/17/21 Reported Furosemide 40 Mg Tablet 1 Tab PO DAILY 04/17/21 Reported Proair Hfa Inhaler (Albuterol Sulfate) 8.5 Gm Hfa.aer.ad 2 Puff IH PRN Q4-6HRS PRN 21 04/16/21 Reported Advair 100-50 Diskus (Fluticasone/Salmeterol) 1 Each Disk.w.dev 1 Puff IH BID 04/16/21 Reported Comments Impression . IMPRESSION: 1. Acute hypoxic respiratory failure, multifactorial/COVID-19 viral pneumonia/ARDS, ongoing, intubated 04/25/2021, now status post tracheostomy 05/15/[address] chest with bilateral diffuse interstitial infiltrates without any significant pleural effusion 3. Leukocytosis, sepsis 4. Non-ST segment elevation [place] 5. History of tobacco use, suspect COPD, unknown FEV1 6. Chronic kidney disease.== HD as needed per renal 7. Metabolic acidosis multifactorial, improved 8. Abnormal chest x-ray, compatible with ARDS CHF 9. Hypoglycemia, continue to monitor 10. Hypotension multifactorial 11. Fever-- 12. Anemia- 13. Atrial fibrillation with rapid ventricular response, currently rate controlled 14. Ileus 15. Type 2 diabetes 16. A. fib 17. Fever secondary to fungemia, resolved Plan . Updated 06/23/21 cont vent support setting reviewed, start weaning as tolerated Use as needed Haldol. Low-dose Ativan if needed avoid oversedation Follow ID recs - Follow nephrology recs Follow GI recs -- illeus. PEG continues to be on hold. DVT/GI PPX D/W RN and RT [facility] has denied patient Pt. is DNR Updated 06/22/21 Continue with assist-control mode for now. Will reinitiate trach shield trials later.. Patient is off Precedex now. Use as needed Haldol. Low-dose Ativan if needed Follow ID recs - Follow nephrology recs Follow GI recs -- illeus. PEG continues to be on hold. DVT/GI PPX D/W RN and RT [facility] has denied patient Pt. is DNR Updated 06/21/21 Continue trach shield all day. Will ask surgery to downsize trach in the next 24 hours and use Passy-Nichol valve. Patient requires Precedex to avoid agitation. Will discontinue and try as needed Haldol. Low-dose Ativan if needed Follow ID recs - Follow nephrology recs Follow GI recs -- illeus. PEG continues to be on hold. DVT/GI PPX D/W RN and RT [facility] has denied patient Pt. is DNR Updated 06/20/21 Continue trach shield all day. If tolerates ,then will consider trickled on a 24-hour basis. Patient requires Precedex to avoid agitation Follow ID recs --Fungemia Follow nephrology recs Follow GI recs -- illeus. PEG continues to be on hold. DVT/GI PPX D/W RN and RT [facility] has denied patient Pt. is DNR Updated 06/19/21 Continue current vent support. Continue trach shield trials as tolerated. Patient requires Precedex to avoid agitation Follow ID recs --Fungemia Follow nephrology recs Follow GI recs -- illeus. PEG continues to be on hold. DVT/GI PPX D/W RN and RT [facility] has denied patient Patient has been very difficult to wean due to multifactorial etiologies including arrhythmias, increased respiratory rate, poor control of blood pre ssure during trials. Did better with trach shield yesterday Pt. is DNR Updated 06/18/21 Continue current vent support. Will skip CPAP trial and consider trach shield trial. Follow ID recs --Fungemia Follow nephrology recs Follow GI recs -- illeus. PEG continues to be on hold. DVT/GI PPX D/W RN and RT [facility] has denied patient Patient has been very difficult to wean due to multifactorial etiologies including arrhythmias, increased respiratory rate, poor control of blood pressure during trials. We will reach out to the family to discuss goals of care. We will try trach shield today Pt. is DNR Updated 06/17/21 Continue current vent support. We will try CPAP again today. Follow ID recs -- ongoing fever/Fungemia Follow nephrology recs Follow GI recs -- anemia on labs today/ illeus DVT/GI PPX D/W RN and RT [facility] has denied patient Patient has been very difficult to wean due to multifactorial etiologies including arrhythmias, increased respiratory rate, poor control of blood pressure during trials. We will reach out to the family to discuss goals of care. We will try CPAP again today. Pt. is DNR Updated 06/16/21 Continue current vent support Follow ID recs -- ongoing fever/Fungemia Follow nephrology recs Follow GI recs -- anemia on labs today/ illeus DVT/GI PPX D/W RN and RT [facility] has denied patient Patient has been very difficult to wean due to multifactorial etiologies including arrhythmias, increased respiratory rate, poor control of blood pressure during trials. We will reach out to the family to discuss goals of care. Pt. is DNR SELENE FERRO MD Jun 23, 2021 05:28
[2021-06-23] MEDS: METOPROLOL IV PUSH 5 MG/5 ML VIAL. IVP SCH ×2 (06:26→12:13)
[2021-06-23 06:42] LABS: BASO # 0.2 x10^3/uL (0.0-0.2); BASO % 1 % (0-3); EOS # 0.3 x10^3/uL (0.0-0.7); EOS % 1 % (0-3); HEMATOCRIT 23.7 % (39.0-53.0); HEMOGLOBIN 7.8 g/dL (13.0-17.5); LYMPH # 3.4 x10^3/uL (1.0-4.8); LYMPH % 15 % (24-48); MEAN CORPUSCULAR HEMOGLOBIN 28 pg (25-35); MEAN CORPUSCULAR HGB CONC 33 g/dL (31-37); MEAN CORPUSCULAR VOLUME 85 fL (79-100); MONO # 2.7 x10^3/uL (0.0-1.1); MONO % 12 % (0-9); NEUT # 16.8 x10^3/uL (1.8-7.7); NEUT % 71 % (31-73); PLATELET COUNT 374 x10^3/uL (140-400); RED BLOOD COUNT 2.81 x10^6/uL (4.30-5.70); RED CELL DISTRIBUTION WIDTH 17.4 % (11.5-14.5); WHITE BLOOD COUNT 23.5 x10^3/uL (4.0-11.0)
[2021-06-23 06:48] LABS: CALCIUM 8.6 mg/dL (8.5-10.1); CREATININE 2.2 mg/dL (0.7-1.3); GFR 35.6; POTASSIUM 3.4 mmol/L (3.5-5.1)
--- NOTE | 2021-06-23 07:30 | PDOC ---
[employer] PROGRESS NOTE Date of Service DOS: DATE: 06/23/21 TIME: 07:26 Chief Complaint Chief Complaint Respiratory failure requiring intubation COVID-19 Acute [facility] A. fib SIRS Hypertension with hypertensive urgency Hyperlipidemia CKD Diabetes History of bilateral subclavian stenosis History of marijuana use Severe protein calorie malnutrition Trach placed on May 15 GI consulted for PEG evaluation --> patient with a lot of vomiting yesterday thus current NG tube to low intermittent suction Anemia secondary to acute blood loss, possible multiple lab draws and related to advanced CKD Ileus Positive Mariya on 1 out of 4 bottles on blood cultures History of Present Illness History of Present Illness 06/23/2021: Febrile overnight, T-max 100.9 F. On vent with FiO2 40%, PEEP 5. Hemoglobin 7.8; will continue to monitor given blood noted in the Nieves catheter. Still not a PEG candidate with ongoing ileus. If no renal recovery will need Tunneled HD catheter likely next week, per nephrology. LTAC appeal pending. Continue antibiotics, per ID. Critical care time 30 min spent reviewing charts, reviewing imaging, reviewing labs, and discussion with RN. 06/22/2021: Afebrile. On trach collar 10 L. No stool yet. Blood noted in Nieves catheter; possibly traumatic, per RN. Will follow hemoglobin. Still not a PEG candidate with ongoing ileus. Nephrology following; if no renal recovery will need Tunneled HD catheter. LTAC appeal pending. Continue antibiotics, per ID. Critical care time 30 min spent reviewing charts, reviewing imaging, reviewing labs, and discussion with RN. 06/21/2021: Awake on trach collar at 10 L. Afebrile. No stooling yet; await a ctive bowel function. Discussed with RN, still requiring Precedex to avoid agitation. This is been discontinued in lieu of as needed Haldol. If necessary may increase Ativan dosage as needed. LTAC appeal pending. Continue HD, per nephrology. Continue antibiotics, per ID. Critical care time 30 min spent reviewing charts, reviewing imaging, reviewing labs, and discussion with RN. 06/20/2021: Afebrile. Awake on vent with FiO2 40%, PEEP 5; difficult to wean. Accepted to LTAC, but insurance denied. Appeal for discharge to LTAC without PEG in process. Not yet stooling. Continue HD, per nephrology. Continue antibiotics, per ID. Critical care time 30 min spent reviewing charts, reviewing imaging, reviewing labs, and discussion with RN. 06/19/2021: Afebrile, no acute ins overnight. On vent with FiO2 40%, PEEP 5. Patient has been accepted at [facility] pending insurance authorization, however [employer] denying until PEG can be placed. Appeal process has been started as currently patient is poor PEG tube candidate. Still not stooling still with high NG output, 400 mL overnight. General surgery consulted and will defer to GI regarding PEG; favor PEG or surgical G-tube. Will continue to follow nephrology and GI recommendations. Continue daptomycin, cefepime, and micafungin, per ID. Critical care time 30 min spent reviewing charts, reviewing imaging, reviewing labs, and discussion with RN. 06/18/2021: Patient seen in ICU. Afebrile, on vent with FiO2 40%, PEEP 5. At this point his treatment is COVID-19 recovered. Continue treatment with daptomycin, cefepime, and micafungin, per ID. [facility] insurance authorization. Critical care 30 minutes reviewing labs, reviewing charts, reviewing imaging, discussion with RN. 06/17/2021 Patient seen and examined in the ICU Still mechanically ventilated AC/20/500/40/5 of PEEP with 100% saturation Currently has NG to suction (low intermittent suction) Sedated with fentanyl propofol and Precedex Has IV TPN hanging Has admit on his right hand SCDs in place Nieves to bedside drainage He remains critically ill 06/16/2021 Patient seen and examined in the ICU Discussed with RT Discussed with RN Chart reviewed Patient remains mechanically ventilated via tracheostomy AC/20/300/40 percent with 5 of PEEP Satting 98% Sedated with fentanyl Has TPN hanging Has IV microfungi and hanging He remains very critically ill 06/15/2021 Patient seen and examined in the ICU He remains on the vent via tracheostomy AC/20/500/40 percent with 5 of PEEP Setting in the mid 90s Has fentanyl and Precedex for sedation His hemoglobin is running low today at 6.7 I have ordered a unit of blood He is on IV TPN Discussed with RN Chart reviewed He remains critically ill 06/14/2021 patient seen and examined in the ICU chart reviewed discussed with RN he remains on the vent via tracheostomy vent settings as follows AC/20/500/40 percent with 5 of PEEP has mitts on for patient safety has SCDs on Nieves to bedside drainage sedated with fentanyl propofol and Precedex he remains critically ill 06/13/2021 Patient seen and examined in the ICU Chart reviewed Discussed with RN Vent settings as follows Spontaneous respirations with 40% FiO2 10 of pressure support Sedated with fentanyl propofol and Dex Has Nieves to bedside drainage Mitts for patient safety 06/12/2021 Patient seen and examined in the ICU He is currently on dialysis (dialysis nurse states we took 2 L off today and we plan to do daily dialysis for a few days per Dr. Ariza) Has trach shield in place Chart reviewed Discussed with RN He remains critically ill 06/10: Tolerating 30 cc every 3 hours tube feed with minimal residuals overnight. Remains in A. fib. Abdomen appears a bit more distended, soft. Minimally sedated propofol Precedex on [employer] FiO2 40% PEEP 5. CC time 31 min spent in reviewing chart, labs, and images. Discussed with RN and SW. Mr Cunha is a 75 yo male w/ PMHx CAD, HTN, Hyperlipidemia, subclavian steel syndrome, subclavian stenosis s/p left subclavian sent placement complicated by retroperitoneal hematoma s/p evacuation in 08/2015), asthma, BART, CKD, DM2 who presented from home with home health care noted that he was short of breath and valverde with O2 saturations less than 89% as low as 84% not improved with nasal cannulated oxygen placed on CPAP and brought to ED for further care. He was just discharged from the hospital a week ago on April 19, 2021 for abdominal pain and was going for further cardiac testing with outpatient stress testing scheduled on May 28, 2021. Had echocardiogram April 17, 2021 with normal-appearing EF with moderate concentric LVH no significant valvular abnormalities. WBC 20, Hb 10.7, platelets 268, NA 140, K3.8, BUN 21, CR 2.9, glucose 162, albumin 3, troponin I 1.372, NT proBNP 33,318. EKG appears sinus tachycardia rate of 105 bpm with multiple PACs small ST depressions in lead II and V5. TWI in V6. Chest radiograph with diffuse interstitial and alveolar opacities and ET tube 5.8 cm above the leilani. Due to worsening respiratory status ED physician elected to intubate patient. Seen postintubation. Blood pressure little low after propofol bolus, but improved. Significant white frothy sputum per ET tube. Admitted to ICU for further care 04/25: On vent FiO2 50, PEEP 5. Febrile, T-max 103.3. Patient was initiated on cooling blankets. Procalcitonin 0.13. 04/26: COVID-19 positive. Febrile overnight that was managed with cooling blankets. On vent with FiO2 50%, PEEP 5. Per cardiology, elevated troponins likely secondary to demand ischemia; continue heparin drip per cardiology. Continue treatment with remdesivir, steroids, and antibiotics. 04/27: Afebrile. Vent with FiO2 50%, PEEP 5. Troponin 2.8 yesterday; probable type II, demand ischemia. New onset A. fib. Cont heparin gtt and prn digoxin, per cardiology. Contnue treatment with remdesivir, steroids, and prophylactic antibiotics. BG 323 this morning; will add basal insulin. 04/28: Afebrile. FiO2 50%, PEEP 5. Nontunneled HD catheter placed yesterday due to worsening kidney function; eGFR 16 (CKD4). Chest x-ray showed unchanged interstitial opacities. Continue empiric antibiotics, steroids, and remdesivir. Continue heparin infusion, for new dx A. fib. 04/29: Afebrile, remains on vent at FiO2 45%, PEEP 5. WBC 20.4. Hemodialysis per nephrology. We will continue treatment with empiric antibiotics, remdesivir, and steroids. Continue heparin infusion and supportive care. 04/30: Patient seen and examined in the [place] [address] ICU. He remains on the vent. AC/20/500/40 5% with 5 PEEP. Currently on dialysis. Has OG feeds running. Has a Nieves to bedside drainage. Sedated with propofol and fentanyl. He remains critically ill 05/01: Patient seen and examined in the [facility] ICU. He is still intubated. AC/20/500/40 percent with 5 of PEEP. In A. fib. Sedated with propofol fentanyl and Versed. Has a heparin drip 05/02: Patient seen and examined in the [facility]- ICU. He is sedated with propofol fentanyl and Versed. AC/20/500/40 percent with 5 of PEEP. He remains critically ill 05/03: [facility] He is still intubated. AC/20/500/70 percent with 5 of PEEP. Sedated with fentanyl Versed and propofol. Remains critically ill 05/04: Patient seen and examined in the [place] [address] ICU. Still intubated. Sedated with propofol and fentanyl. AC/20/500/70 percent with 5 of PEEP. On dialysis currently 05/05: Patient seen and examined in the [place] [address] ICU. He remains on the vent. AC/20/500/40 percent with 5 of PEEP. He remains critically ill 05/06: Patient seen and examined in the [place] [address] ICU. He remains mechanically ventilated. AC/20/500/40 05/07: Patient seen and examined in the [place] [address] ICU. He remains mechanically ventilated. ILDA on CKD - ATN 2/2 sepsis/ Hypotension,UOP good,on IV Lasix ; requiring dialysis, . AC/20/500/40 percent with 5 of PEEP. Sedated with propofol Dex and fentanyl 05/08: Currently on 40%, 5 of PEEP. now on cardene gtt. Patient seen and examined in the [place] [address] ICU. 05/09: VENT jqyxttc68%, 5 of PEEP. Mild pulmonary edema with new small right pleural effusion and basilar opacities. Change central line and send cath tip for cultures. 05/10: VENT %, 5 of PEEP. Mild pulmonary edema with new small right pleural effusion and basilar opacities. Patient seen and examined in the [place] [id number] ICU 05/11: Continue iv cefepime , add zyvox, sputum culture 05/12: Continue iv cefepime , add zyvox, sputum culture. VENT inarovm64%, 5 of PEEP. now on cardene gtt prn 05/13: Did not tolerate sedation vacation 05/11/2021, profoundly hypertensive. ABG/CXR--changes as needed. Continue iv cefepime , add zyvox, sputum culture. VENT hsiisfg15%, 5 of PEEP. Mild pulmonary edema with new small right pleural effusion and basilar opacities. now on cardene gtt prn 05/14: Patient seen and examined at bedside. Remains intubated and sedated planning for tracheostomy tomorrow. Continue current respiratory support; continue antibiotics, continue sedation. Follow recommendations of pulmonary, renal, and infectious disease 05/15: Patient seen and examined at bedside. Remains intubated and sedated planning for tracheostomy today. Continue current respiratory support; continue antibiotics, continue sedation. 05/16: Patient seen and examined at bedside. Underwent tracheostomy yesterday today tolerated well. When seen this morning patient is still notably sedated r espiratory status is stable. measures. 05/17: Patient seen and examined at bedside. Attempting to wean sedation. Patient with some diarrhea. Per infectious disease will give erythromycin eye ointment for eye lesions. Nephro and pulm also following. 05/18: Patient seen and examined at bedside. Attempting to increase tube feeds, GI consulted for PEG evaluation. Otherwise no major clinical changes. Continue to wean sedation. Plan of care discussed with bedside nurse. 05/19: Patient seen and examined at bedside. Apparently had a fair bit of vomiting overnight. GI following for PEG evaluation. Otherwise patient remained stable. Plan of care discussed with bedside nurse. 05/20: Patient seen and examined at bedside. Again had multiple bouts of vomiting yesterday. GI continuing to follow for PEG evaluation although on hold right now due to persistent vomiting. Leukocytosis 05/21: Afebrile, no acute events overnight. Remains on vent, FiO2 40%, PEEP 5. S/P tracheostomy on 05/15/2021. KUB on 05/19/2021 consistent with ileus. Per GI, continue NG tube to suction and parenteral nutrition for now. Continue IV antibiotics, per ID. Continue hemodialysis 05/22: Afebrile. On vent with FiO2 40%, PEEP 5. Excessive NG output. Continue NG tube to suction for now; PEG on hold for now. Continue hemodialysis, per nephrology. Continue IV antibiotics, per ID. 05/23: Afebrile. Vent with FiO2 40%, PEEP 5. NG tube for 635 mL out overnight. Continue NG tube to suction. HD 05/24: No acute events overnight. Afebrile. NG tube output has decreased. Kidney function appears stable. Continue IV antibiotics, per ID. Patient has been accepted to [facility], pending insurance authorization. 05/25: Afebrile. On vent with FiO2 40%, PEEP 5. Hemoglobin 8.6 yesterday, hemoglobin 7.3 today. Reportedly had HD yesterday. Continue IV antibiotics, per ID; WBC possibly reactive to ileus. Has been accepted at [facility]; transfer pending, but will need PEG tube placement prior. 05/26: Afebrile. On vent with FiO2 40%, PEEP 5. Hemoglobin 7.3 yesterday, and hemoglobin 7.2 today; continue to trend. Leukocytosis slightly improved, WBC 12.9 today. Has been accepted at [facility]; transfer pending, but will need PEG tube placement prior. 05/27: Afebrile. On vent with FiO2 40%, PEEP 5. Hemoglobin remains stable at 7.2 today; continue to trend. WBC 13.4. Kidney function appears to be stabilized. LTAC transfer is pending PEG tube placement. Off meropenem; will continue to monitor. Kidney function appears to be stable. 05/28: No acute events overnight. Patient doing well on trach with settings of 40% FiO2 and PEEP of 8. Pending PEG placement after ileus is resolved will defer this to GI for timing of PEG placement.. Also pending tunneled catheter placement for dialysis. 05/29: No acute events or night. Patient tolerating trach collar humidified. Saturating at 99%. Pending PICC line placement and IJ central line removal. Per ID. Possibly in not needing HD. Making urine adequately with Lasix as needed. 05/30: No acute events overnight. Patient doing well on trach collar. Hemoglobin decreased down to 6.7 pending 1 unit PRBC transfusion. Restarted on linezolid and Flagyl and cefepime. Pending PICC placement and central line IJ removal. 05/31: No acute events overnight. Patient saturating 100% on trach collar. Hemoglobin improved after 1 unit PRBC transfusion to 8.4. Patient is currently undergoing dialysis and his labs have been stable. Patient's chart, labs, images were reviewed and discussed with RN 06/01: No acute events overnight. Patient saturating well on trach collar. Patient seen and examined bedside and on HD. Hemoglobin trended down from 8.4- 7.3. Afebrile in the last 24 hours. Patient's chart, labs, images were reviewed and discussed with RN 06/02: No acute events overnight. Patient saturating 100% on trach collar. Tmax 100.3. Yeast 1 of 4 bottles on blood cultures. Plan to remove central line and dialysis catheter. Family consideration for tunneled catheterization possibly hold. Micafungin was started per ID. 06/03: No acute events overnight. Left IJ placed by IR. Defer to ID for antibiotic management for cultures of the catheter tip and yeast. 06/04: No overnight events afebrile. Sedated on propofol and Precedex. On vent with tracheostomy PEEP 5 FiO2 40%. Being treated for fungemia and receiving TPN. Left IJ CVC functioning well. HD catheter right. 06/05: Afebrile. Still requiring minimal sedation on propofol and Precedex. Requiring vent support via trach PEEP five FiO2 40%. KUB with less gaseous distention. No BM but bowel sounds are audible. 06/06: Afebrile. On minimal sedation with propofol and Precedex and vent support via trach PEEP 5 FiO2 40%. Still in A. fib on telemetry. Catheter tip no growth to date sputum with Mariya. Repeat blood cultures no growth to date 06/07: Afebrile. On minimal sedation propofol and Precedex with for trach PEEP 5 FiO2 40%. He is to be in A. fib. Hb 6.9. Will transfuse with dialysis today. Did have stool smear overnight 06/08: Afebrile. On minimal sedation propofol Precedex tolerated pressure support yesterday back on AC PEEP 5 FiO2 40% use more alert trying to pull out his tracheostomy successfully disconnected himself from the vent. Not easily redirectable. Admits for safety. In A. fib. Labs pending 06/09: Vomited large amount of tube feeding overnight and NG attached to low suction. Remains in A. fib. Minimal sedation with propofol and Precedex. Tolerated pressure support back on AC FiO2 40% PEEP 5 getting dialysis currently. 06/11/2021: Patient seen and examined in the ICU. Mitts on for patient safety. Sedated with dexmedetomidine, propofol, and fentanyl. IV TPN hanging. NG tube running at 10 mL per hour. Currently on trach shield 10L. Discussed with RN. Chart reviewed. Vitals/I&O Vitals/I&O: Vital Signs Date Time Temp Pulse Resp B/P (MAP) Pulse Ox O2 Delivery O2 Flow Rate FiO2 06/23/21 06:26 100 140/86 06/23/21 06:00 24 100 Ventilator 06/23/21 04:00 99.7 99.7 06/22/21 18:16 10.0 I & O 06/22/21 06/22/21 06/23/21 15:00 23:00 07:00 Intake Total 150 ml 1067 ml 700 ml Output Total 350 ml 3325 ml 625 ml Balance -200 ml -2258 ml 75 ml Physical Exam Physical Exam: GENERAL: awake and comfortable on vent HEENT: Normocephalic, atraumatic, redness and erythema of both eyes improved, NG tube present NECK: right dialysis catheter present clean,Lt neck central line changed ( 05/11) Trach + HEART: S1, S2.no gallop LUNGS: Decreased breath sounds. ABDOMEN: Less distended, bowel sounds present GENITOURINARY: Nieves in place. EXTREMITIES: Edema present. DERMATOLOGIC: Warm, dry, no generalized rash. NEUROLOGIC: Opens eyes PICC line clean General: Alert, No acute distress Heart: Regular rate, Normal S1, Normal S2, No murmurs, Gallops Lungs: Clear Abdomen: Soft, No tenderness, Other (obese) Extremities: Other (EDEMA) Skin: No rashes, No breakdown, No significant lesion Labs Labs: Laboratory Tests Test 06/22/21 11:33 06/22/21 17:59 06/23/21 00:06 06/23/21 06:30 Glucose (Fingerstick) 295 mg/dL (70-99) 211 mg/dL (70-99) 213 mg/dL (70-99) White Blood Count 23.5 x10^3/uL (4.0-11.0) Red Blood Count 2.81 x10^6/uL (4.30-5.70) Hemoglobin 7.8 g/dL (13.0-17.5) Hematocrit 23.7 % (39.0-53.0) Mean Corpuscular Volume 85 fL (79-100) Mean Corpuscular Hemoglobin 28 pg (25-35) Mean Corpuscular Hemoglobin Concent 33 g/dL (31-37) Red Cell Distribution Width 17.4 % (11.5-14.5) Platelet Count 374 x10^3/uL (140-400) Neutrophils (%) (Auto) 71 % (31-73) Lymphocytes (%) (Auto) 15 % (24-48) Monocytes (%) (Auto) 12 % (0-9) Eosinophils (%) (Auto) 1 % (0-3) Basophils (%) (Auto) 1 % (0-3) Neutrophils # (Auto) 16.8 x10^3/uL (1.8-7.7) Lymphocytes # (Auto) 3.4 x10^3/uL (1.0-4.8) Monocytes # (Auto) 2.7 x10^3/uL (0.0-1.1) Eosinophils # (Auto) 0.3 x10^3/uL (0.0-0.7) Basophils # (Auto) 0.2 x10^3/uL (0.0-0.2) Sodium Level 136 mmol/L (136-145) Potassium Level 3.4 mmol/L (3.5-5.1) Chloride Level 100 mmol/L (98-107) Carbon Dioxide Level 30 mmol/L (21-32) Anion Gap 6 (6-14) Blood Urea Nitrogen 39 mg/dL (8-26) Creatinine 2.2 mg/dL (0.7-1.3) Estimated GFR (Cockcroft-Gault) 35.6 Glucose Level 234 mg/dL (70-99) Calcium Level 8.6 mg/dL (8.5-10.1) Test 06/23/21 06:31 Glucose (Fingerstick) 247 mg/dL (70-99) Assessment and Plan Assessmemt and Plan Problems Medical Problems: (1) Elevated troponin Status: Acute (2) Person under investigation for COVID-19 Status: Acute (3) Pulmonary edema Status: Acute Comment Review of Relevant I have reviewed the following items juanita (where applicable) has been applied. Medications: Current Medications Medications (Trade) Dose Ordered Sig/Jodie Route PRN Reason Start Time Stop Time Status Last Admin Dose Admin Sodium Chloride 80 meq/Potassium Chloride 30 meq/ Potassium Phosphate 15 mmol/ Magnesium Sulfate 8 meq/ Multivitamins 5 ml/Zinc/Copper/ Manganese/ Selenium 1 ml/ Total Parenteral Nutrition/Amino Acids/Dextrose/ Fat Emulsion Intravenous 1,440 ml @ 60 mls/hr TPN CONT IV 06/22/21 22:00 06/23/21 21:59 06/22/21 21:56 Justifications for Admission General Conditions Altered mental status?: Yes Justification of admission: Patient has tachycardia (> 100 beats per minute) or hypotension (SBP < 90 mm Hg) leading to inadequate systemic perfusion as indicated by severe/persistent altered mental status. Other Justification SARAH BETH ARREOLA MD Jun 23, 2021 07:30
[2021-06-23] MEDS: INSULIN GLARGINE SYRINGE. SQ SCH ×2 (09:19→21:00)
[2021-06-23] MEDS: PANTOPRAZOLE IV PUSH 40 MG VIAL. IVP SCH (09:19)
[2021-06-23] MEDS: ASPIRIN CHEWABLE 81 MG TABLET. PO SCH (09:20)
[2021-06-23] MEDS: ACETAMINOPHEN 325 MG TABLET. PO PRN (09:20)
[2021-06-23] MEDS: NYSTATIN TOPICAL POWDER 15GM BOTTLE. TP SCH ×2 (09:21→21:01)
[2021-06-23] MEDS: TPN PER PHARMACY MC PRN (10:44)
[2021-06-23] MEDS: HALOPERIDOL LACTATE 5 MG/ML VIAL. IVP PRN (12:13)
--- NOTE | 2021-06-23 12:15 | NUR ---
Pharmacy TPN Dosing Note S: NILAM LAN is a 75 year old M Currently receiving Central Continuous TPN started 05/22/21 B:Pertinent PMH: ILEUS Height: 6 feet, 2 inches Weight: 132.4 kg Current diet: NPO LABS: Sodium: 136 Potassium: 3.4 Chloride: 100 Calcium: 9.2 Corrected Calcium: 11.04 Magnesium: 1.9 CO2: 30 SCr: 2.2 Glucose: 234 Albumin: 1.7 AST: 31 ALT: 26 TPN FORMULA: TPN TYPE: Central Continuous AMINO ACIDS: 95 gm DEXTROSE: 295 gm LIPIDS: 30 gm SODIUM CHLORIDE: 80 mEq SODIUM ACETATE: - mEq SODIUM PHOSPHATE: - mmol POTASSIUM CHLORIDE: 50 mEq POTASSIUM ACETATE: - mEq POTASSIUM PHOSPHATE: 15 mmol MAGNESIUM: 8 mEq CALCIUM: 0 mEq INSULIN: - units MULTIPLE VITAMIN: 5 ml TRACE ELEMENTS: 1 ml(s) TPN PLAN: increase kcl to 50 meq R: CONT TPN AT 60 ML/HR Will monitor electrolytes, glucose, and tolerance to TPN. GALEN DE LA CRUZ [facility], 06/23/21 [id number]
--- NOTE | 2021-06-23 13:42 | PDOC ---
DATE OF SERVICE DATE: 06/23/21 TIME: 13:39 SUBJECTIVE ROS Febrile overnight, T-max 100.9 F. On vent not a PEG candidate with ongoing ileus. OBJECTIVE Vital Signs Vital Signs Date Time Temp Pulse Resp B/P (MAP) Pulse Ox O2 Delivery O2 Flow Rate FiO2 06/23/21 13:00 105 33 145/74 (97) 100 Tracheal Collar 06/23/21 12:00 99.6 99.6 06/23/21 11:45 10.0 I & 0 Intake and Output 06/23/21 07:00 Intake Total 1917 ml Output Total 4300 ml Balance -2383 ml Intake Oral 0 ml IV Total 1767 ml Tube Feeding 150 ml Output Urine Total 700 ml Gastric Drainage Total 550 ml Oral Regurgitation 50 ml Other 3000 ml PHYSICAL EXAM Physical Exam GENERAL: awake on vent HEENT: NG tube present NECK: right dialysis catheter present , Trach + HEART: S1, S2.no gallop LUNGS: Decreased breath sounds. ABDOMEN: bowel sounds present GENITOURINARY: Nieves in place. EXTREMITIES: trace edema DERMATOLOGIC: no generalized rash. NEUROLOGIC: awake, responsive DIAGNOSIS/ASSESSMENT Assessment & Plan ILDA-ATN- requiring dialysis; , Non -Oliguric , uop marginal currently on MWF schedule , No indication for dialysis today Access - has temp HDC ; if no renal recovery will need Tunneled HDC . Re-eval next week . Bhavesh RN Fungemia-on antifungal per ID HypoNatremia- Resolved HypoKalemia - replace CKD stage 3 Acute Hypoxic Resp failure - S/P Trach COVID 19 Pneumonia Anemia - Hgb stable COMMENT/RELEVANT DATA Meds Current Medications Medications (Trade) Dose Ordered Sig/Jodie Start Time Stop Time Status Last Admin Dose Admin Acetaminophen (Tylenol Supp) 650 mg PRN Q6HRS PRN 05/29/21 16:15 06/17/21 08:12 650 MG Acetaminophen (Tylenol) 650 mg PRN Q6HRS PRN 04/24/21 14:00 Cancel Albumin Human 200 ml @ 200 mls/hr 1X PRN PRN 06/22/21 12:00 06/22/21 17:59 DC Amiodarone HCl (Cordarone) 200 mg DAILY 04/28/21 09:00 05/22/21 16:27 DC 05/21/21 11:07 200 MG Amiodarone HCl 150 mg/Dextrose 103 ml @ 618 mls/hr 1X ONCE 04/27/21 02:30 04/27/21 02:39 DC 04/27/21 02:30 618 MLS/HR Amiodarone HCl 450 mg/Dextrose 259 ml @ 0 mls/hr 1X ONCE 05/22/21 16:30 05/22/21 16:34 DC 05/22/21 16:59 33 MLS/HR Amlodipine Besylate (Norvasc) 10 mg DAILY 05/16/21 09:00 06/23/21 09:20 10 MG Aspirin (Aspirin Chewable) 81 mg DAILYWBKFT 05/03/21 10:00 06/23/21 09:20 81 MG Aspirin (Ecotrin) 81 mg DAILYWBKFT 04/25/21 08:00 05/03/21 09:56 DC 05/02/21 07:20 81 MG Atorvastatin Calcium (Lipitor) 80 mg QHS 04/24/21 21:00 06/21/21 21:02 80 MG Bisacodyl (Dulcolax Supp) 10 mg 1X ONCE 06/19/21 09:45 06/19/21 09:46 DC 06/19/21 09:45 10 MG Bupivacaine HCl/ Epinephrine Bitart (Sensorcain-Epi 0.5%-1:[id number] Mpf) 30 ml STK-MED ONCE 05/15/21 07:05 05/15/21 07:06 DC Carvedilol (Coreg) 3.125 mg BIDWMEALS 04/24/21 17:00 04/25/21 15:42 DC 04/25/21 09:23 3.125 MG Cefepime HCl (Maxipime) 1 gm DAILY 06/15/21 09:30 06/21/21 10:26 DC 06/21/21 08:39 1 GM Cellulose (Surgicel Fibrillar 1x2) 1 each STK-MED ONCE 05/15/21 07:05 05/15/21 07:06 DC 05/15/21 09:40 1 EACH Chlorhexidine Gluconate (Peridex) 15 ml BID 04/24/21 21:00 04/25/21 11:19 DC 04/24/21 20:49 15 ML Daptomycin 600 mg/ Sodium Chloride 50 ml @ 100 mls/hr Q48H 05/04/21 15:00 05/06/21 08:07 DC 05/04/21 15:24 100 MLS/HR Daptomycin 620 mg/ Sodium Chloride 50 ml @ 100 mls/hr Q48H 06/15/21 11:00 06/21/21 10:26 DC 06/19/21 11:19 100 MLS/HR Dexamethasone Sodium Phosphate (Decadron) 4 mg STK-MED ONCE 05/15/21 07:53 05/15/21 07:53 DC Dexmedetomidine HCl 400 mcg/ Sodium Chloride 100 ml @ 0 mls/hr CONT PRN 05/04/21 10:30 06/21/21 11:29 32.8 MLS/HR Dextrose (Dextrose 50%-Water Syringe) 12.5 gm PRN Q15MIN PRN 06/09/21 16:30 UNV Digoxin (Lanoxin) 250 mcg 1X ONCE 04/26/21 13:00 04/26/21 13:05 DC 04/26/21 15:02 250 MCG Ephedrine Sulfate (ePHEDrine PF IN SALINE SYRINGE) 50 mg STK-MED ONCE 05/15/21 09:15 05/15/21 09:15 DC Erythromycin (Romycin) 0.25 inch BID 05/17/21 12:00 05/25/21 13:24 DC 05/25/21 07:43 0.25 INCH Etomidate (Amidate) 20 mg STK-MED ONCE 04/24/21 13:38 04/24/21 13:38 DC Fentanyl Citrate 30 ml @ 0 mls/hr CONT PRN 04/24/21 14:00 06/21/21 07:41 2.5 MLS/HR Fentanyl Citrate (Fentanyl 2ml Vial) 25 mcg PRN Q1HR PRN 04/24/21 14:00 06/23/21 09:28 25 MCG Fluconazole/ Sodium Chloride 100 ml @ 100 mls/hr Q24H 06/05/21 09:00 06/15/21 08:53 DC 06/14/21 10:36 100 MLS/HR Furosemide (Lasix) 80 mg TID 05/27/21 09:00 06/01/21 11:08 DC 05/31/21 20:10 80 MG Haloperidol Lactate (Haldol Inj) 5 mg PRN Q6HRS PRN 06/21/21 09:15 06/23/21 12:13 5 MG Heparin Sodium (Porcine) (Heparin Sodium) 5,000 unit Q8HRS 05/18/21 10:00 05/30/21 11:07 DC 05/30/21 06:07 5,000 UNIT Heparin Sodium/ Dextrose 250 ml @ 0 mls/hr CONT PRN 04/24/21 16:45 05/01/21 12:32 DC 05/01/21 05:10 10 MLS/HR Hydralazine HCl (Apresoline Inj) 10 mg PRN QID PRN 05/22/21 16:30 06/23/21 01:27 10 MG Hydralazine HCl (Apresoline) 25 mg QID 05/10/21 10:00 05/22/21 16:27 DC 05/21/21 17:24 25 MG Info (Anti-Coagulation Monitoring By Pharmacy) 1 each PRN DAILY PRN 04/25/21 13:00 05/02/21 07:36 DC 04/26/21 08:51 1 EACH Info (PHARMACY MONITORING -- do not chart) 1 each PRN DAILY PRN 06/22/21 12:00 Info (Tpn Per Pharmacy) 1 each PRN DAILY PRN 05/22/21 10:00 06/23/21 10:44 1 EACH Insulin Glargine (Lantus Syringe) 20 unit BID 05/31/21 09:00 06/23/21 09:19 20 UNIT Insulin Human Lispro (HumaLOG) 3 units Q6HRS 06/09/21 18:00 06/23/21 12:10 3 UNITS Labetalol HCl (Normodyne Iv Push) 20 mg PRN Q2HR PRN 05/01/21 12:30 06/22/21 14:09 20 MG Lidocaine HCl (Buffered Lidocaine 1%) 6 ml 1X ONCE 06/04/21 09:30 06/04/21 09:31 DC 06/04/21 09:34 2 ML Lidocaine HCl (Lidocaine Pf 2% Vial) 5 ml STK-MED ONCE 05/15/21 07:53 05/15/21 07:53 DC Linezolid/Dextrose 300 ml @ 300 mls/hr Q12HR 05/31/21 09:00 UNV Lorazepam (Ativan Inj) 0.25 mg PRN Q4HRS PRN 05/21/21 09:00 06/23/21 09:28 0.25 MG Magnesium Sulfate 50 ml @ 25 mls/hr 1X ONCE 06/02/21 08:45 06/02/21 10:44 DC 06/02/21 09:53 25 MLS/HR Meropenem 500 mg/ Sodium Chloride 50 ml @ 100 mls/hr DAILY 05/23/21 09:00 05/25/21 11:55 DC 05/25/21 07:42 100 MLS/HR Methylnaltrexone Trevorton (Relistor) 12 mg 1X ONCE 06/10/21 12:00 06/10/21 12:01 DC 06/10/21 13:02 12 MG Metoprolol Tartrate (Lopressor Vial) 5 mg Q6HRS 04/25/21 18:00 06/23/21 12:13 5 MG Metronidazole 100 ml @ 100 mls/hr Q12HR 05/30/21 09:00 06/05/21 07:34 DC 06/04/21 20:32 100 MLS/HR Micafungin Sodium 100 mg/Dextrose 100 ml @ 100 mls/hr Q24H 06/15/21 10:00 06/21/21 10:26 DC 06/21/21 08:54 100 MLS/HR Midazolam HCl (Versed) 5 mg 1X ONCE 05/24/21 15:15 05/24/21 15:16 DC 05/24/21 15:20 5 MG Montelukast Sodium (Singulair) 10 mg HS 04/24/21 21:00 06/21/21 21:02 10 MG Multi-Ingred Cream/Lotion/Oil/ Oint (Artificial Tears Eye Ointment) 1 danielito PRN Q1HR PRN 05/07/21 16:00 05/10/21 20:51 1 DANIELITO Nicardipine HCl 50 mg/Sodium Chloride 250 ml @ 25 mls/hr CONT PRN 05/06/21 18:45 05/20/21 19:47 37.5 MLS/HR Norepinephrine Bitartrate 8 mg/ Dextrose 258 ml @ 25.852 mls/ hr CONT PRN 05/02/21 21:00 05/09/21 06:10 DC 05/02/21 21:22 25.852 MLS/HR Nystatin (Nystop) 1 danielito BID 05/16/21 21:00 06/23/21 09:21 1 DANIELITO Ondansetron HCl (Zofran) 4 mg STK-MED ONCE 05/15/21 07:53 05/15/21 07:53 DC Pantoprazole Sodium (PROTONIX VIAL for IV PUSH) 40 mg DAILYAC 04/26/21 09:30 06/23/21 09:19 40 MG Phenylephrine HCl (PHENYLEPHRINE in 0.9% NACL PF) 1 mg STK-MED ONCE 05/15/21 07:51 05/15/21 07:51 DC Potassium Bicarbonate (Potassium Effervescent Tablet) 40 meq 1X ONCE 05/19/21 08:30 05/19/21 08:31 DC 05/19/21 08:50 40 MEQ Potassium Chloride/Water 100 ml @ 100 mls/hr Q1H 05/23/21 10:45 05/23/21 12:44 DC 05/23/21 13:17 100 MLS/HR Potassium Phosphate 10 mmol/ Sodium Chloride 103.3333 ml @ 51.667 m... Q2H 06/01/21 12:00 06/01/21 15:59 DC 06/01/21 13:24 51.667 MLS/HR Potassium Phosphate 13.6 mmol/Sodium Chloride 254.5333 ml @ 127.... 1X ONCE 06/08/21 14:00 06/08/21 15:59 DC 06/08/21 15:21 127.267 MLS/HR Potassium Phosphate 20 mmol/ Sodium Chloride 256.6667 ml @ 62.5 mls/hr 1X ONCE 05/13/21 12:15 05/13/21 16:21 UNV Potassium Phosphate 30 mmol/ Sodium Chloride 260 ml @ 62.5 mls/hr 1X ONCE 05/13/21 12:15 05/13/21 16:24 UNV Prochlorperazine Edisylate (Compazine) 5 mg PACU PRN PRN 05/15/21 06:00 05/16/21 05:59 DC Propofol 100 ml @ 4.185 mls/ hr CONT PRN 06/02/21 09:30 06/21/21 00:53 4.185 MLS/HR Propofol (Diprivan) 200 mg STK-MED ONCE 05/15/21 07:53 05/15/21 07:53 DC Remdesivir 100 mg/ Sodium Chloride 230 ml @ 460 mls/hr Q24H 04/26/21 17:30 04/29/21 17:59 DC 04/29/21 13:51 460 MLS/HR Remdesivir 200 mg/ Sodium Chloride 210 ml @ 210 mls/hr 1X ONCE 04/25/21 17:30 04/25/21 18:29 DC 04/25/21 17:09 210 MLS/HR Ringer's Solution 1,000 ml @ 30 mls/hr Q24H 05/15/21 06:00 05/15/21 17:59 DC 05/15/21 07:04 30 MLS/HR Rocuronium Trevorton (Zemuron) 50 mg STK-MED ONCE 05/15/21 07:06 05/15/21 07:07 DC Sodium Bicarbonate (Sodium Bicarb Adult 8.4% Syr) 50 meq 1X ONCE 04/27/21 09:45 04/27/21 09:46 DC 04/27/21 09:50 50 MEQ Sodium Chloride (Normal Saline Flush) 10 ml 1X PRN PRN 06/22/21 12:00 06/23/21 11:59 DC Sodium Chloride 80 meq/Potassium Chloride 10 meq/ Potassium Phosphate 10 mmol/ Magnesium Sulfate 8 meq/ Multivitamins 5 ml/Zinc/Copper/ Manganese/ Selenium 1 ml/ Total Parenteral Nutrition/Amino Acids/Dextrose/ Fat Emulsion Intravenous 1,440 ml @ 60 mls/hr TPN CONT 06/13/21 22:00 06/14/21 21:59 DC 06/13/21 22:00 60 MLS/HR Sodium Chloride 80 meq/Potassium Chloride 20 meq/ Potassium Phosphate 13.6 mmol/Magnesium Sulfate 8 meq/ Multivitamins 5 ml/Zinc/Copper/ Manganese/ Selenium 1 ml/ Total Parenteral Nutrition/Amino Acids/Dextrose/ Fat Emulsion Intravenous 1,440 ml @ 60 mls/hr TPN CONT 06/16/21 22:00 06/17/21 21:59 DC 06/16/21 21:53 60 MLS/HR Sodium Chloride 80 meq/Potassium Chloride 20 meq/ Potassium Phosphate 15 mmol/ Magnesium Sulfate 8 meq/ Multivitamins 5 ml/Zinc/Copper/ Manganese/ Selenium 1 ml/ Total Parenteral Nutrition/Amino Acids/Dextrose/ Fat Emulsion Intravenous 1,440 ml @ 60 mls/hr TPN CONT 06/17/21 22:00 06/18/21 21:59 DC 06/17/21 22:11 60 MLS/HR Sodium Chloride 80 meq/Potassium Chloride 30 meq/ Potassium Phosphate 10 mmol/ Magnesium Sulfate 8 meq/ Multivitamins 5 ml/Zinc/Copper/ Manganese/ Selenium 1 ml/ Total Parenteral Nutrition/Amino Acids/Dextrose/ Fat Emulsion Intravenous 1,440 ml @ 60 mls/hr TPN CONT 06/12/21 22:00 06/13/21 21:59 DC 06/12/21 21:56 60 MLS/HR Sodium Chloride 80 meq/Potassium Chloride 30 meq/ Potassium Phosphate 15 mmol/ Magnesium Sulfate 8 meq/ Multivitamins 5 ml/Zinc/Copper/ Manganese/ Selenium 1 ml/ Total Parenteral Nutrition/Amino Acids/Dextrose 1,440 ml @ 60 mls/hr TPN CONT 06/20/21 22:00 06/21/21 21:59 DC 06/20/21 22:33 60 MLS/HR Sodium Chloride 80 meq/Potassium Chloride 30 meq/ Potassium Phosphate 15 mmol/ Magnesium Sulfate 8 meq/ Multivitamins 5 ml/Zinc/Copper/ Manganese/ Selenium 1 ml/ Total Parenteral Nutrition/Amino Acids/Dextrose/ Fat Emulsion Intravenous 1,440 ml @ 60 mls/hr TPN CONT 06/23/21 22:00 06/24/21 21:59 Cancel Sodium Chloride 80 meq/Potassium Chloride 40 meq/ Potassium Phosphate 15 mmol/ Magnesium Sulfate 8 meq/ Multivitamins 5 ml/Zinc/Copper/ Manganese/ Selenium 1 ml/ Total Parenteral Nutrition/Amino Acids/Dextrose/ Fat Emulsion Intravenous 1,440 ml @ 60 mls/hr TPN CONT 06/23/21 22:00 06/24/21 21:59 Sodium Chloride 80 meq/Potassium Chloride 50 meq/ Potassium Phosphate 15 mmol/ Magnesium Sulfate 8 meq/ Multivitamins 5 ml/Zinc/Copper/ Manganese/ Selenium 1 ml/ Total Parenteral Nutrition/Amino Acids/Dextrose/ Fat Emulsion Intravenous 1,440 ml @ 60 mls/hr TPN CONT 06/23/21 22:00 06/24/21 21:59 Cancel Sodium Chloride 90 meq/Potassium Chloride 25 meq/ Magnesium Sulfate 10 meq/Calcium Gluconate 5 meq/ Multivitamins 5 ml/Zinc/Copper/ Manganese/ Selenium 1 ml/ Total Parenteral Nutrition/Amino Acids/Dextrose/ Fat Emulsion Intravenous 1,080 ml @ 45 mls/hr TPN CONT 05/22/21 22:00 05/23/21 21:59 DC 05/22/21 21:22 45 MLS/HR Sodium Chloride 90 meq/Potassium Chloride 30 meq/ Potassium Phosphate 13.6 mmol/Magnesium Sulfate 10 meq/ Multivitamins 5 ml/Zinc/Copper/ Manganese/ Selenium 1 ml/ Total Parenteral Nutrition/Amino Acids/Dextrose/ Fat Emulsion Intravenous 1,200 ml @ 50 mls/hr TPN CONT 06/01/21 22:00 06/02/21 21:59 DC 06/01/21 21:33 50 MLS/HR Sodium Chloride 90 meq/Potassium Chloride 30 meq/ Potassium Phosphate 13.6 mmol/Magnesium Sulfate 12 meq/ Multivitamins 5 ml/Zinc/Copper/ Manganese/ Selenium 1 ml/ Total Parenteral Nutrition/Amino Acids/Dextrose 1,200 ml @ 50 mls/hr TPN CONT 06/07/21 22:00 06/08/21 21:59 DC 06/07/21 22:16 50 MLS/HR Sodium Chloride 90 meq/Potassium Chloride 30 meq/ Potassium Phosphate 13.6 mmol/Magnesium Sulfate 12 meq/ Multivitamins 5 ml/Zinc/Copper/ Manganese/ Selenium 1 ml/ Total Parenteral Nutrition/Amino Acids/Dextrose/ Fat Emulsion Intravenous 1,440 ml @ 60 mls/hr TPN CONT 06/11/21 22:00 06/12/21 21:59 DC 06/11/21 22:13 60 MLS/HR Sodium Chloride 90 meq/Potassium Chloride 50 meq/ Magnesium Sulfate 10 meq/Calcium Gluconate 5 meq/ Multivitamins 5 ml/Zinc/Copper/ Manganese/ Selenium 1 ml/ Total Parenteral Nutrition/Amino Acids/Dextrose/ Fat Emulsion Intravenous 960 ml @ 40 mls/hr TPN CONT 05/27/21 22:00 05/28/21 21:59 DC 05/27/21 22:03 40 MLS/HR Sodium Chloride 90 meq/Potassium Chloride 50 meq/ Potassium Phosphate 5 mmol/ Magnesium Sulfate 10 meq/Calcium Gluconate 5 meq/ Multivitamins 5 ml/Zinc/Copper/ Manganese/ Selenium 1 ml/ Total Parenteral Nutrition/Amino Acids/Dextrose/ Fat Emulsion Intravenous 1,200 ml @ 50 mls/hr TPN CONT 05/30/21 22:00 05/31/21 21:59 DC 05/30/21 21:57 50 MLS/HR Sodium Phosphate 15 mmol/Dextrose 105 ml @ 105 mls/hr 1X ONCE 05/29/21 11:00 05/29/21 11:59 DC 05/29/21 11:53 105 MLS/HR Sodium Phosphate 15 mmol/Sodium Chloride 105 ml @ 105 mls/hr 1X ONCE 05/29/21 11:45 05/29/21 12:44 UNV Succinylcholine Chloride (Anectine) 200 mg STK-MED ONCE 04/24/21 13:38 04/24/21 13:38 DC Vecuronium Trevorton (Norcuron Bolus) 6 mg PRN Q6HRS PRN 04/30/21 11:15 06/21/21 09:12 DC 05/14/21 09:12 6 MG Lab Laboratory Tests Test 06/22/21 17:59 06/23/21 00:06 06/23/21 06:30 06/23/21 06:31 Glucose (Fingerstick) 211 mg/dL (70-99) 213 mg/dL (70-99) 247 mg/dL (70-99) White Blood Count 23.5 x10^3/uL (4.0-11.0) Red Blood Count 2.81 x10^6/uL (4.30-5.70) Hemoglobin 7.8 g/dL (13.0-17.5) Hematocrit 23.7 % (39.0-53.0) Mean Corpuscular Volume 85 fL (79-100) Mean Corpuscular Hemoglobin 28 pg (25-35) Mean Corpuscular Hemoglobin Concent 33 g/dL (31-37) Red Cell Distribution Width 17.4 % (11.5-14.5) Platelet Count 374 x10^3/uL (140-400) Neutrophils (%) (Auto) 71 % (31-73) Lymphocytes (%) (Auto) 15 % (24-48) Monocytes (%) (Auto) 12 % (0-9) Eosinophils (%) (Auto) 1 % (0-3) Basophils (%) (Auto) 1 % (0-3) Neutrophils # (Auto) 16.8 x10^3/uL (1.8-7.7) Lymphocytes # (Auto) 3.4 x10^3/uL (1.0-4.8) Monocytes # (Auto) 2.7 x10^3/uL (0.0-1.1) Eosinophils # (Auto) 0.3 x10^3/uL (0.0-0.7) Basophils # (Auto) 0.2 x10^3/uL (0.0-0.2) Sodium Level 136 mmol/L (136-145) Potassium Level 3.4 mmol/L (3.5-5.1) Chloride Level 100 mmol/L (98-107) Carbon Dioxide Level 30 mmol/L (21-32) Anion Gap 6 (6-14) Blood Urea Nitrogen 39 mg/dL (8-26) Creatinine 2.2 mg/dL (0.7-1.3) Estimated GFR (Cockcroft-Gault) 35.6 Glucose Level 234 mg/dL (70-99) Calcium Level 8.6 mg/dL (8.5-10.1) Magnesium Level 1.9 mg/dL (1.8-2.4) Test 06/23/21 12:08 Glucose (Fingerstick) 241 mg/dL (70-99) Results All relevant outside records, renal labs, imaging studies, telemetry/EKG's were reviewed. Justicifation of Admission Dx: Justifications for Admission: Justification of Admission Dx: Yes Aspiration Pneumonia: Hemodynamic Instability JASMEET LAM MD Jun 23, 2021 13:42
[2021-06-23] MEDS: ATORVASTATIN CALCIUM 40 MG TABLET. PO SCH (20:54)
[2021-06-23] MEDS: MONTELUKAST SODIUM 10 MG TABLET. PO SCH (20:55)
[2021-06-23] MEDS ORDERED: [UNRECOGNIZED DRUG - OTHER] IV SCH (22:00)
[2021-06-23] MEDS ORDERED: TOTAL PARENTERAL NUTRITION IV SCH ×3 (22:00)
[2021-06-23] MEDS ORDERED: DEXTROSE IV SCH ×3 (22:00)
[2021-06-23] MEDS ORDERED: [UNRECOGNIZED DRUG - OTHER] IV SCH (22:00)
[2021-06-23] MEDS ORDERED: [UNRECOGNIZED DRUG - OTHER] IV SCH (22:00)
[2021-06-23] MEDS ORDERED: AMINO ACID IV SCH ×3 (22:00)
[2021-06-24] VITALS (22 sets, daily range): BP systolic 80–169; BP diastolic 51–119
--- NOTE | 2021-06-24 06:46 | PDOC ---
[employer] PROGRESS NOTE Date of Service DOS: DATE: 06/24/21 TIME: 06:40 Chief Complaint Chief Complaint Respiratory failure requiring intubation COVID-19 Acute [place] A. fib SIRS Hypertension with hypertensive urgency Hyperlipidemia CKD Diabetes History of bilateral subclavian stenosis History of marijuana use Severe protein calorie malnutrition Trach placed on May 15 GI consulted for PEG evaluation --> patient with a lot of vomiting yesterday thus current NG tube to low intermittent suction Anemia secondary to acute blood loss, possible multiple lab draws and related to advanced CKD Ileus Positive Mariya on 1 out of 4 bottles on blood cultures History of Present Illness History of Present Illness 06/24/2021: Afebrile. Awake on vent with FiO2 40%, PEEP 5. Off antibiotics. Still with no stooling, await bowel function. Still not a PEG candidate with ongoing ileus. Per nephrology, may need tunneled HD cath next week if no renal recovery. Received voicemail from Kathi with [facility] that appeal has been approved for LTAC. Discussed with RN, will likely be able to discharge to LTAC on TPN tomorrow. Critical care time 30 min spent reviewing charts, reviewing imaging, reviewing labs, and discussion with RN. 06/23/2021: Febrile overnight, T-max 100.9 F. On vent with FiO2 40%, PEEP 5. Hemoglobin 7.8; will continue to monitor given blood noted in the Nieves catheter. Still not a PEG candidate with ongoing ileus. If no renal recovery will need Tunneled HD catheter likely next week, per nephrology. LTAC appeal pending. Continue antibiotics, per ID. Critical care time 30 min spent reviewing charts, reviewing imaging, reviewing labs, and discussion with RN. 06/22/2021: Afebrile. On trach collar 10 L. No stool yet. Blood noted in Nieves catheter; possibly traumatic, per RN. Will follow hemoglobin. Still not a PEG candidate with ongoing ileus. Nephrology following; if no renal recovery will need Tunneled HD catheter. LTAC appeal pending. Continue antibiotics, per ID. Critical care time 30 min spent reviewing charts, reviewing imaging, reviewing labs, and discussion with RN. 06/21/2021: Awake on trach collar at 10 L. Afebrile. No stooling yet; await active bowel function. Discussed with RN, still requiring Precedex to avoid agitation. This is been discontinued in lieu of as needed Haldol. If necessary may increase Ativan dosage as needed. LTAC appeal pending. Continue HD, per nephrology. Continue antibiotics, per ID. Critical care time 30 min spent reviewing charts, reviewing imaging, reviewing labs, and discussion with RN. 06/20/2021: Afebrile. Awake on vent with FiO2 40%, PEEP 5; difficult to wean. Accepted to LTAC, but insurance denied. Appeal for discharge to LTAC without PEG in process. Not yet stooling. Continue HD, per nephrology. Continue antibiotics, per ID. Critical care time 30 min spent reviewing charts, reviewing imaging, reviewing labs, and discussion with RN. 06/19/2021: Afebrile, no acute ins overnight. On vent with FiO2 40%, PEEP 5. Patient has been accepted at [facility] pending insurance authorization, however [employer] denying until PEG can be placed. Appeal process has been started as currently patient is poor PEG tube candidate. Still not stooling still with high NG output, 400 mL overnight. General surgery consulted and will defer to GI regarding PEG; favor PEG or surgical G-tube. Will continue to follow nephrology and GI recommendations. Continue daptomycin, cefepime, and micafungin, per ID. Critical care time 30 min spent reviewing charts, reviewing imaging, reviewing labs, and discussion with RN. 06/18/2021: Patient seen in ICU. Afebrile, on vent with FiO2 40%, PEEP 5. At this point his treatment is COVID-19 recovered. Continue treatment with daptomycin, cefepime, and micafungin, per ID. Patient has been accepted to [facility], pending insurance authorization. Critical care 30 minutes reviewing labs, reviewing charts, reviewing imaging, discussion with RN. 06/17/2021 Patient seen and examined in the ICU Still mechanically ventilated AC/20/500/40/5 of PEEP with 100% saturation Currently has NG to suction (low intermittent suction) Sedated with fentanyl propofol and Precedex Has IV TPN hanging Has admit on his right hand SCDs in place Nieves to bedside drainage He remains critically ill 06/16/2021 Patient seen and examined in the ICU Discussed with RT Discussed with RN Chart reviewed Patient remains mechanically ventilated via tracheostomy AC/20/300/40 percent with 5 of PEEP Satting 98% Sedated with fentanyl Has TPN hanging Has IV microfungi and hanging He remains very critically ill 06/15/2021 Patient seen and examined in the ICU He remains on the vent via tracheostomy AC/20/500/40 percent with 5 of PEEP Setting in the mid Has fentanyl and Precedex for sedation His hemoglobin is running low today at 6.7 I have ordered a unit of blood He is on IV TPN Discussed with RN Chart reviewed He remains critically ill 06/14/2021 patient seen and examined in the ICU chart reviewed discussed with RN he remains on the vent via tracheostomy vent settings as follows AC/20/500/40 percent with 5 of PEEP has mitts on for patient safety has SCDs on Nieves to bedside drainage sedated with fentanyl propofol and Precedex he remains critically ill 06/13/2021 Patient seen and examined in the ICU Chart reviewed Discussed with RN Vent settings as follows Spontaneous respirations with 40% FiO2 10 of pressure support Sedated with fentanyl propofol and Dex Has Nieves to bedside drainage Mitts for patient safety 06/12/2021 Patient seen and examined in the ICU He is currently on dialysis (dialysis nurse states we took 2 L off today and we plan to do daily dialysis for a few days per Dr. Ariza) Has trach shield in place Chart reviewed Discussed with RN He remains critically ill 06/10: Tolerating 30 cc every 3 hours tube feed with minimal residuals overnight. Remains in A. fib. Abdomen appears a bit more distended, soft. Minimally sedated propofol Precedex on TWIST PACKER FiO2 40% PEEP 5. CC time 31 min spent in reviewing chart, labs, and images. Discussed with RN and SW. Mr Cunha is a 75 yo male w/ PMHx CAD, HTN, Hyperlipidemia, subclavian steel syndrome, subclavian stenosis s/p left subclavian sent placement complicated by retroperitoneal hematoma s/p evacuation in 08/2015), asthma, BART, CKD, DM2 who presented from home with home health care noted that he was short of breath and valverde with O2 saturations less than 89% as low as 84% not improved with nasal cannulated oxygen placed on CPAP and brought to ED for further care. He was just discharged from the hospital a week ago on April 19, 2021 for abdominal pain and was going for further cardiac testing with outpatient stress testing scheduled on May 28, 2021. Had echocardiogram April 17, 2021 with normal-appearing EF with moderate concentric LVH no significant valvular abnormalities. WBC 20, Hb 10.7, platelets 268, NA 140, K3.8, BUN 21, CR 2.9, glucose 162, albumin 3, troponin I 1.372, NT proBNP 33,318. EKG appears sinus tachycardia rate of 105 bpm with multiple PACs small ST depressions in lead II and V5. TWI in V6. Chest radiograph with diffuse interstitial and alveolar opacities and ET tube 5.8 cm above the leilani. Due to worsening respiratory status ED physician elected to intubate patient. Seen postintubation. Blood pressure little low after propofol bolus, but improved. Significant white frothy sputum per ET tube. Admitted to ICU for further care 04/25: On vent FiO2 50, PEEP 5. Febrile, T-max 103.3. Patient was initiated on cooling blankets. Procalcitonin 0.13. 04/26: COVID-19 positive. Febrile overnight that was managed with cooling blankets. On vent with FiO2 50%, PEEP 5. Per cardiology, elevated troponins likely secondary to demand ischemia; continue heparin drip per cardiology. Continue treatment with remdesivir, steroids, and antibiotics. 04/27: Afebrile. Vent with FiO2 50%, PEEP 5. Troponin 2.8 yesterday; probable type II, demand ischemia. New onset A. fib. Cont heparin gtt and prn digoxin, per cardiology. Contnue treatment with remdesivir, steroids, and prophylactic antibiotics. BG 323 this morning; will add basal insulin. 04/28: Afebrile. FiO2 50%, PEEP 5. Nontunneled HD catheter placed yesterday due to worsening kidney function; eGFR 16 (CKD4). Chest x-ray showed unchanged interstitial opacities. Continue empiric antibiotics, steroids, and remdesivir. Continue heparin infusion, for new dx A. fib. 04/29: Afebrile, remains on vent at FiO2 45%, PEEP 5. WBC 20.4. Hemodialysis per nephrology. We will continue treatment with empiric antibiotics, remdesiv ir, and steroids. Continue heparin infusion and supportive care. 04/30: Patient seen and examined in the COVID-19 ICU. He remains on the vent. AC/20/500/40 5% with 5 PEEP. Currently on dialysis. Has OG feeds running. Has a Nieves to bedside drainage. Sedated with propofol and fentanyl. He remains critically ill 05/01: Patient seen and examined in the [place] [address] ICU. He is still intubated. AC/20/500/40 percent with 5 of PEEP. In A. fib. Sedated with propofol fentanyl and Versed. Has a heparin drip 05/02: Patient seen and examined in the [place] [address] ICU. He is sedated with propofol fentanyl and Versed. AC/20/500/40 percent with 5 of PEEP. He remains critically ill 05/03: Patient seen and examined in the [place] [address] ICU. He is still intubated. AC/20/500/70 percent with 5 of PEEP. Sedated with fentanyl Versed and propofol. Remains critically ill 05/04: Patient seen and examined in the [place] [address] ICU. Still intubated. Sedated with propofol and fentanyl. AC/20/500/70 percent with 5 of PEEP. On dialysis currently 05/05: Patient seen and examined in the [place] [address] ICU. He remains on the vent. AC/20/500/40 percent with 5 of PEEP. He remains critically ill 05/06: Patient seen and examined in the [place] [address] ICU. He remains mechanically ventilated. AC/20/500/40 05/07: Patient seen and examined in the [place] [address] ICU. He remains mechanically ventilated. ILDA on CKD - ATN 2/2 sepsis/ Hypotension,UOP good,on IV Lasix ; requiring dialysis, . AC/20/500/40 percent with 5 of PEEP. Sedated with propofol Dex and fentanyl 05/08: Currently on 40%, 5 of PEEP. now on cardene gtt. Patient seen and examined in the [place] [address] ICU. 05/09: VENT pkhnzro90%, 5 of PEEP. Mild pulmonary edema with new small right pleural effusion and basilar opacities. Change central line and send cath tip for cultures. 05/10: VENT nzsdyzw23%, 5 of PEEP. Mild pulmonary edema with new small right pleural effusion and basilar opacities. Patient seen and examined in the [place] [id number] ICU 05/11: Continue iv cefepime , add zyvox, sputum culture 05/12: Continue iv cefepime , add zyvox, sputum culture. VENT uweywoe42%, 5 of PEEP. now on cardene gtt prn 05/13: Did not tolerate sedation vacation 05/11/2021, profoundly hypertensive. ABG/CXR--changes as needed. Continue iv cefepime , add zyvox, sputum culture. VENT ngbeonx16%, 5 of PEEP. Mild pulmonary edema with new small right pleural effusion and basilar opacities. now on cardene gtt prn 05/14: Patient seen and examined at bedside. Remains intubated and sedated planning for tracheostomy tomorrow. Continue current respiratory support; continue antibiotics, continue sedation. Follow recommendations of pulmonary, renal, and infectious disease 05/15: Patient seen and examined at bedside. Remains intubated and sedated planning for tracheostomy today. Continue current respiratory support; continue antibiotics, continue sedation. 05/16: Patient seen and examined at bedside. Underwent tracheostomy yesterday today tolerated well. When seen this morning patient is still notably sedated respiratory status is stable. measures. 05/17: Patient seen and examined at bedside. Attempting to wean sedation. Patient with some diarrhea. Per infectious disease will give erythromycin eye ointment for eye lesions. Nephro and pulm also following. 05/18: Patient seen and examined at bedside. Attempting to increase tube feeds, GI consulted for PEG evaluation. Otherwise no major clinical changes. Continue to wean sedation. Plan of care discussed with bedside nurse. 05/19: Patient seen and examined at bedside. Apparently had a fair bit of vomiting overnight. GI following for PEG evaluation. Otherwise patient remained stable. Plan of care discussed with bedside nurse. 05/20: Patient seen and examined at bedside. Again had multiple bouts of vomiting yesterday. GI continuing to follow for PEG evaluation although on hold right now due to persistent vomiting. Leukocytosis 05/21: Afebrile, no acute events overnight. Remains on vent, FiO2 40%, PEEP 5. S/P tracheostomy on 05/15/2021. KUB on 05/19/2021 consistent with ileus. Per GI, continue NG tube to suction and parenteral nutrition for now. Continue IV antibiotics, per ID. Continue hemodialysis 05/22: Afebrile. On vent with FiO2 40%, PEEP 5. Excessive NG output. Continue NG tube to suction for now; PEG on hold for now. Continue hemodialysis, per nephrology. Continue IV antibiotics, per ID. 05/23: Afebrile. Vent with FiO2 40%, PEEP 5. NG tube for 635 mL out overnight. Continue NG tube to suction. HD 05/24: No acute events overnight. Afebrile. NG tube output has decreased. Kidney function appears stable. Continue IV antibiotics, per ID. Patient has been accepted to [facility], pending insurance authorization. 05/25: Afebrile. On vent with FiO2 40%, PEEP 5. Hemoglobin 8.6 yesterday, hemoglobin 7.3 today. Reportedly had HD yesterday. Continue IV antibiotics, per ID; WBC possibly reactive to ileus. Has been accepted at [facility]; transfer pending, but will need PEG tube placement prior. 05/26: Afebrile. On vent with FiO2 40%, PEEP 5. Hemoglobin 7.3 yesterday, and hemoglobin 7.2 today; continue to trend. Leukocytosis slightly improved, WBC 12.9 today. Has been accepted at [facility] [place]; transfer pending, but will need PEG tube placement prior. 05/27: Afebrile. On vent with FiO2 40%, PEEP 5. Hemoglobin remains stable at 7.2 today; continue to trend. WBC 13.4. Kidney function appears to be stabilized. LTAC transfer is pending PEG tube placement. Off meropenem; will continue to monitor. Kidney function appears to be stable. 05/28: No acute events overnight. Patient doing well on trach with settings of 40% FiO2 and PEEP of 8. Pending PEG placement after ileus is resolved will defer this to GI for timing of PEG placement.. Also pending tunneled catheter placement for dialysis. 05/29: No acute events or night. Patient tolerating trach collar humidified. Saturating at 99%. Pending PICC line placement and IJ central line removal. Per ID. Possibly in not needing HD. Making urine adequately with Lasix as needed. 05/30: No acute events overnight. Patient doing well on trach collar. Hemoglobin decreased down to 6.7 pending 1 unit PRBC transfusion. Restarted on linezolid and Flagyl and cefepime. Pending PICC placement and central line IJ removal. 05/31: No acute events overnight. Patient saturating 100% on trach collar. Hemoglobin improved after 1 unit PRBC transfusion to 8.4. Patient is currently undergoing dialysis and his labs have been stable. Patient's chart, labs, images were reviewed and discussed with RN 06/01: No acute events overnight. Patient saturating well on trach collar. Patient seen and examined bedside and on HD. Hemoglobin trended down from 8.4- 7.3. Afebrile in the last 24 hours. Patient's chart, labs, images were reviewed and discussed with RN 06/02: No acute events overnight. Patient saturating 100% on trach collar. Tmax 100.3. Yeast 1 of 4 bottles on blood cultures. Plan to remove central line and dialysis catheter. Family consideration for tunneled catheterization possibly hold. Micafungin was started per ID. 06/03: No acute events overnight. Left IJ placed by IR. Defer to ID for antibiotic management for cultures of the catheter tip and yeast. 06/04: No overnight events afebrile. Sedated on propofol and Precedex. On vent with tracheostomy PEEP 5 FiO2 40%. Being treated for fungemia and receiving TPN. Left IJ CVC functioning well. HD catheter right. 06/05: Afebrile. Still requiring minimal sedation on propofol and Precedex. Requiring vent support via trach PEEP five FiO2 40%. KUB with less gaseous distention. No BM but bowel sounds are audible. 06/06: Afebrile. On minimal sedation with propofol and Precedex and vent support via trach PEEP 5 FiO2 40%. Still in A. fib on telemetry. Catheter tip no growth to date sputum with Mariya. Repeat blood cultures no growth to date 06/07: Afebrile. On minimal sedation propofol and Precedex with for trach PEEP 5 FiO2 40%. He is to be in A. fib. Hb 6.9. Will transfuse with dialysis today. Did have stool smear overnight 06/08: Afebrile. On minimal sedation propofol Precedex tolerated pressure support yesterday back on AC PEEP 5 FiO2 40% use more alert trying to pull out his tracheostomy successfully disconnected himself from the vent. Not easily redirectable. Admits for safety. In A. fib. Labs pending 06/09: Vomited large amount of tube feeding overnight and NG attached to low suction. Remains in A. fib. Minimal sedation with propofol and Precedex. Tolerated pressure support back on AC FiO2 40% PEEP 5 getting dialysis currently. 06/11/2021: Patient seen and examined in the ICU. Mitts on for patient safety. Sedated with dexmedetomidine, propofol, and fentanyl. IV TPN hanging. NG tube running at 10 mL per hour. Currently on trach shield 10L. Discussed with RN. Chart reviewed. Vitals/I&O Vitals/I&O: Vital Signs Date Time Temp Pulse Resp B/P (MAP) Pulse Ox O2 Delivery O2 Flow Rate FiO2 06/24/21 06:00 102 22 125/93 (104) 100 Ventilator 06/24/21 05:00 98.6 98.6 06/23/21 14:55 10.0 I & O 06/23/21 06/23/21 06/24/21 15:00 23:00 07:00 Intake Total 580.3 ml Output Total 35 ml 505 ml 50 ml Balance -35 ml 75.3 ml -50 ml Physical Exam Physical Exam: GENERAL: awake and comfortable on vent HEENT: Normocephalic, atraumatic, redness and erythema of both eyes improved, NG tube present NECK: right dialysis catheter present clean,Lt neck central line changed ( 05/11) Trach + HEART: S1, S2.no gallop LUNGS: Decreased breath sounds. ABDOMEN: Less distended, bowel sounds present GENITOURINARY: Nieves in place. EXTREMITIES: Edema present. DERMATOLOGIC: Warm, dry, no generalized rash. NEUROLOGIC: Opens eyes PICC line clean General: Alert, No acute distress Heart: Regular rate, Normal S1, Normal S2, No murmurs, Gallops Lungs: Other (b lat diminished bs) Abdomen: Soft, No tenderness, Other (obese) Extremities: Other (EDEMA) Skin: No rashes, No breakdown, No significant lesion Labs Labs: Laboratory Tests Test 06/23/21 12:08 Glucose (Fingerstick) 241 mg/dL (70-99) Assessment and Plan Assessmemt and Plan Problems Medical Problems: (1) Elevated troponin Status: Acute (2) Person under investigation for COVID-19 Status: Acute (3) Pulmonary edema Status: Acute Comment Review of Relevant I have reviewed the following items juanita (where applicable) has been applied. Medications: Current Medications Medications (Trade) Dose Ordered Sig/Jodie Route PRN Reason Start Time Stop Time Status Last Admin Dose Admin Sodium Chloride 80 meq/Potassium Chloride 40 meq/ Potassium Phosphate 15 mmol/ Magnesium Sulfate 8 meq/ Multivitamins 5 ml/Zinc/Copper/ Manganese/ Selenium 1 ml/ Total Parenteral Nutrition/Amino Acids/Dextrose/ Fat Emulsion Intravenous 1,440 ml @ 60 mls/hr TPN CONT IV 06/23/21 22:00 06/24/21 21:59 06/23/21 22:26 Justifications for Admission General Conditions Altered mental status?: Yes Justification of admission: Patient has tachycardia (> 100 beats per minute) or hypotension (SBP < 90 mm Hg) leading to inadequate systemic perfusion as indicated by severe/persistent altered mental status. Other Justification ILDA SARAH BETH CARRASCO MD Jun 24, 2021 06:46
--- NOTE | 2021-06-24 06:57 | PDOC ---
PULMONARY PROGRESS NOTES DATE: 06/24/21 TIME: 06:57 Subjective back on ac since 06/22 no levo on prn haldol ativan open eyes w verbal stimuli Vitals Vital Signs Date Time Temp Pulse Resp B/P (MAP) Pulse Ox O2 Delivery O2 Flow Rate FiO2 06/24/21 06:00 102 22 125/93 (104) 100 Ventilator 06/24/21 05:00 98.6 98.6 06/23/21 14:55 10.0 Comments Tracheostomy ros unable to obtain General: No acute distress HEENT: Other (nc at perrl ) Lungs: Other (b lat diminished bs) Cardiovascular: S1, S2 Abdomen: Soft, Non-tender, Other (Nontender) Extremities: Other (1+ edema) Skin: Warm Labs Laboratory Tests Test 06/22/21 11:33 06/22/21 17:59 06/23/21 00:06 06/23/21 06:30 Glucose (Fingerstick) 295 mg/dL (70-99) 211 mg/dL (70-99) 213 mg/dL (70-99) White Blood Count 23.5 x10^3/uL (4.0-11.0) Red Blood Count 2.81 x10^6/uL (4.30-5.70) Hemoglobin 7.8 g/dL (13.0-17.5) Hematocrit 23.7 % (39.0-53.0) Mean Corpuscular Volume 85 fL (79-100) Mean Corpuscular Hemoglobin 28 pg (25-35) Mean Corpuscular Hemoglobin Concent 33 g/dL (31-37) Red Cell Distribution Width 17.4 % (11.5-14.5) Platelet Count 374 x10^3/uL (140-400) Neutrophils (%) (Auto) 71 % (31-73) Lymphocytes (%) (Auto) 15 % (24-48) Monocytes (%) (Auto) 12 % (0-9) Eosinophils (%) (Auto) 1 % (0-3) Basophils (%) (Auto) 1 % (0-3) Neutrophils # (Auto) 16.8 x10^3/uL (1.8-7.7) Lymphocytes # (Auto) 3.4 x10^3/uL (1.0-4.8) Monocytes # (Auto) 2.7 x10^3/uL (0.0-1.1) Eosinophils # (Auto) 0.3 x10^3/uL (0.0-0.7) Basophils # (Auto) 0.2 x10^3/uL (0.0-0.2) Sodium Level 136 mmol/L (136-145) Potassium Level 3.4 mmol/L (3.5-5.1) Chloride Level 100 mmol/L (98-107) Carbon Dioxide Level 30 mmol/L (21-32) Anion Gap 6 (6-14) Blood Urea Nitrogen 39 mg/dL (8-26) Creatinine 2.2 mg/dL (0.7-1.3) Estimated GFR (Cockcroft-Gault) 35.6 Glucose Level 234 mg/dL (70-99) Calcium Level 8.6 mg/dL (8.5-10.1) Magnesium Level 1.9 mg/dL (1.8-2.4) Test 06/23/21 06:31 06/23/21 12:08 Glucose (Fingerstick) 247 mg/dL (70-99) 241 mg/dL (70-99) Laboratory Tests Test 06/23/21 12:08 Glucose (Fingerstick) 241 mg/dL (70-99) Medications Active Scripts Medications Dose Route/Sig Max Daily Dose Days Date Category Glyburide 2.5 Mg Tablet 1 Tab PO DAILY 04/19/21 Rx Polyethylene Glycol 3350 17 Gm Powd.pack 17 Gm PO DAILY 04/19/21 Rx Dok (Docusate Sodium) 100 Mg Capsule 100 Mg PO PRN DAILY PRN 04/19/21 Rx Bisacodyl 5 Mg Tablet. 5 Mg PO PRN DAILY PRN 04/19/21 Rx Acetaminophen 325 Mg Tablet 650 Mg PO PRN Q4HRS PRN 04/19/21 Rx Aspirin Ec (Aspirin) 81 Mg Tablet. 81 Mg PO DAILYWBKFT 04/19/21 Rx Hydralazine Hcl 25 Mg Tablet 25 Mg PO QID 04/19/21 Rx Fenofibrate 54 Mg Tablet 1 Tab PO DAILY 04/17/21 Reported Potassium Chloride (Potassium Chloride) 20 Meq Tablet.er 20 Meq PO DAILY 04/17/21 Reported Coreg (Carvedilol) 12.5 Mg Tablet 37.5 Mg PO BIDWMEALS 04/17/21 Reported Rosuvastatin Calcium 40 Mg Tablet 40 Mg PO QHS 04/17/21 Reported Gabapentin (Gabapentin) 100 Mg Capsule 200 Mg PO BID 04/17/21 Reported Montelukast Sodium Tablet (Montelukast Sodium) 10 Mg Tablet 10 Mg PO HS 04/17/21 Reported Protonix (Pantoprazole Sodium) 20 Mg Tablet.dr 2 Tab PO DAILY 04/17/21 Reported Amlodipine Besylate 5 Mg Tablet 5 Mg PO DAILY 04/17/21 Reported Furosemide 40 Mg Tablet 1 Tab PO DAILY 04/17/21 Reported Proair Hfa Inhaler (Albuterol Sulfate) 8.5 Gm Hfa.aer.ad 2 Puff IH PRN Q4-6HRS PRN 21 04/16/21 Reported Advair 100-50 Diskus (Fluticasone/Salmeterol) 1 Each Disk.w.dev 1 Puff IH BID 04/16/21 Reported Comments Impression . IMPRESSION: 1. Acute hypoxic respiratory failure, multifactorial/COVID-19 viral pneumonia/ARDS, ongoing, intubated 04/25/2021, now status post tracheostomy [address] chest with bilateral diffuse interstitial infiltrates without any significant pleural effusion 3. Leukocytosis, sepsis 4. Non-ST segment elevation AR 5. History of tobacco use, suspect COPD, unknown FEV1 6. Chronic kidney disease.== HD as needed per renal 7. Metabolic acidosis multifactorial, improved 8. Abnormal chest x-ray, compatible with ARDS CHF 9. Hypoglycemia, continue to monitor 10. Hypotension multifactorial 11. Fever-- 12. Anemia- 13. Atrial fibrillation with rapid ventricular response, currently rate controlled 14. Ileus 15. Type 2 diabetes 16. A. fib 17. Fever secondary to fungemia, resolved Plan . Updated 06/24/21 cont vent support setting reviewed, start weaning as tolerated Use as needed Haldol. Low-dose Ativan if needed avoid oversedation Follow ID recs - Follow nephrology recs Follow GI recs -- illeus. PEG continues to be on hold. DVT/GI PPX D/W RN and RT [facility] accepted the patient Pt. is DNR Updated 06/23/21 cont vent support setting reviewed, start weaning as tolerated Use as needed Haldol. Low-dose Ativan if needed avoid oversedation Follow ID recs - Follow nephrology recs Follow GI recs -- illeus. PEG continues to be on hold. DVT/GI PPX D/W RN and RT [facility] has denied patient Pt. is DNR Updated 06/22/21 Continue with assist-control mode for now. Will reinitiate trach shield trials later.. Patient is off Precedex now. Use as needed Haldol. Low-dose Ativan if needed Follow ID recs - Follow nephrology recs Follow GI recs -- illeus. PEG continues to be on hold. DVT/GI PPX D/W RN and RT [facility] has denied patient Pt. is DNR Updated 06/21/21 Continue trach shield all day. Will ask surgery to downsize trach in the next 24 hours and use [place] valve. Patient requires Precedex to avoid agitation. Will discontinue and try as needed Haldol. Low-dose Ativan if needed Follow ID recs - Follow nephrology recs Follow GI recs -- illeus. PEG continues to be on hold. DVT/GI PPX D/W RN and RT [facility] has denied patient Pt. is DNR Updated 06/20/21 Continue trach shield all day. If tolerates ,then will consider trickled on a 24-hour basis. Patient requires Precedex to avoid agitation Follow ID recs --Fungemia Follow nephrology recs Follow GI recs -- illeus. PEG continues to be on hold. DVT/GI PPX D/W RN and RT [facility] has denied patient Pt. is DNR Updated 06/19/21 Continue current vent support. Continue trach shield trials as tolerated. Patient requires Precedex to avoid agitation Follow ID recs --Fungemia Follow nephrology recs Follow GI recs -- illeus. PEG continues to be on hold. DVT/GI PPX D/W RN and RT [facility] has denied patient Patient has been very difficult to wean due to multifactorial etiologies including arrhythmias, increased respiratory rate, poor control of blood pressure during trials. Did better with trach shield yesterday Pt. is DNR Updated 06/18/21 Continue current vent support. Will skip CPAP trial and consider trach shield trial. Follow ID recs --Fungemia Follow nephrology recs Follow GI recs -- illeus. PEG continues to be on hold. DVT/GI PPX D/W RN and RT [facility] has denied patient Patient has been very difficult to wean due to multifactorial etiologies including arrhythmias, increased respiratory rate, poor control of blood pressure during trials. We will reach out to the family to discuss goals of care. We will try trach shield today Pt. is DNR Updated 06/17/21 Continue current vent support. We will try CPAP again today. Follow ID recs -- ongoing fever/Fungemia Follow nephrology recs Follow GI recs -- anemia on labs today/ illeus DVT/GI PPX D/W RN and RT [facility] has denied patient Patient has been very difficult to wean due to multifactorial etiologies including arrhythmias, increased respiratory rate, poor control of blood pressure during trials. We will reach out to the family to discuss goals of care. We will try CPAP again today. Pt. is DNR Updated 06/16/21 Continue current vent support Follow ID recs -- ongoing fever/Fungemia Follow nephrology recs Follow GI recs -- anemia on labs today/ illeus DVT/GI PPX D/W RN and RT [facility] has denied patient Patient has been very difficult to wean due to multifactorial etiologies including arrhythmias, increased respiratory rate, poor control of blood pressure during trials. We will reach out to the family to discuss goals of care. Pt. is DNR SELENE FERRO MD Jun 24, 2021 06:57
[2021-06-24] MEDS: METOPROLOL IV PUSH 5 MG/5 ML VIAL. IVP SCH ×4 (07:23→18:00)
[2021-06-24] MEDS: INSULIN LISPRO 300 UNITS/3 ML VIAL. SQ SCH ×8 (07:32→18:00)
[2021-06-24 07:53] LABS: BASO # 0.2 x10^3/uL (0.0-0.2); BASO % 1 % (0-3); EOS % 5 % (0-3); HEMOGLOBIN 7.8 g/dL (13.0-17.5); LYMPH # 3.3 x10^3/uL (1.0-4.8); LYMPH % 16 % (24-48); MEAN CORPUSCULAR HEMOGLOBIN 28 pg (25-35); MEAN CORPUSCULAR HGB CONC 33 g/dL (31-37); MEAN CORPUSCULAR VOLUME 86 fL (79-100); MONO # 2.5 x10^3/uL (0.0-1.1); MONO % 13 % (0-9); NEUT # 13.2 x10^3/uL (1.8-7.7); NEUT % 66 % (31-73); PLATELET COUNT 385 x10^3/uL (140-400); RED BLOOD COUNT 2.79 x10^6/uL (4.30-5.70); RED CELL DISTRIBUTION WIDTH 17.2 % (11.5-14.5); WHITE BLOOD COUNT 20.2 x10^3/uL (4.0-11.0)
[2021-06-24 07:59] LABS: CALCIUM 8.8 mg/dL (8.5-10.1); CREATININE 2.8 mg/dL (0.7-1.3); GFR 26.9; POTASSIUM 3.3 mmol/L (3.5-5.1)
[2021-06-24] MEDS: PANTOPRAZOLE IV PUSH 40 MG VIAL. IVP SCH (08:00)
[2021-06-24] MEDS: ASPIRIN CHEWABLE 81 MG TABLET. PO SCH (08:01)
[2021-06-24] MEDS: NYSTATIN TOPICAL POWDER 15GM BOTTLE. TP SCH ×2 (08:02→21:00)
[2021-06-24] MEDS: fentaNYL PF VIAL 100 MCG/2 ML VIAL IV PRN ×3 (08:03→21:02)
[2021-06-24] MEDS: HALOPERIDOL LACTATE 5 MG/ML VIAL. IVP PRN (08:03)
--- NOTE | 2021-06-24 08:06 | PDOC ---
Infectious Disease Note Subjective Subjective Patient is awake on ventilator Vital Sign Vital Signs Vital Signs Date Time Temp Pulse Resp B/P (MAP) Pulse Ox O2 Delivery O2 Flow Rate FiO2 06/24/21 08:03 22 06/24/21 08:02 80 120/60 06/24/21 06:00 100 Ventilator 06/24/21 05:00 98.6 98.6 06/23/21 14:55 10.0 Physical Exam PHYSICAL EXAM GENERAL: awake and comfortable on vent HEENT: Normocephalic, atraumatic, redness and erythema of both eyes improved, NG tube present NECK: right dialysis catheter present clean,Lt neck central line changed ( 05/11) Trach + HEART: S1, S2.no gallop LUNGS: Decreased breath sounds. ABDOMEN: Less distended, bowel sounds present GENITOURINARY: Nieves in place. EXTREMITIES: Edema present. DERMATOLOGIC: Warm, dry, no generalized rash. NEUROLOGIC: Opens eyes PICC line clean Labs Lab Laboratory Tests Test 06/23/21 12:08 06/24/21 07:29 06/24/21 07:43 Glucose (Fingerstick) 241 mg/dL (70-99) 250 mg/dL (70-99) White Blood Count 20.2 x10^3/uL (4.0-11.0) Red Blood Count 2.79 x10^6/uL (4.30-5.70) Hemoglobin 7.8 g/dL (13.0-17.5) Hematocrit 24.0 % (39.0-53.0) Mean Corpuscular Volume 86 fL (79-100) Mean Corpuscular Hemoglobin 28 pg (25-35) Mean Corpuscular Hemoglobin Concent 33 g/dL (31-37) Red Cell Distribution Width 17.2 % (11.5-14.5) Platelet Count 385 x10^3/uL (140-400) Neutrophils (%) (Auto) 66 % (31-73) Lymphocytes (%) (Auto) 16 % (24-48) Monocytes (%) (Auto) 13 % (0-9) Eosinophils (%) (Auto) 5 % (0-3) Basophils (%) (Auto) 1 % (0-3) Neutrophils # (Auto) 13.2 x10^3/uL (1.8-7.7) Lymphocytes # (Auto) 3.3 x10^3/uL (1.0-4.8) Monocytes # (Auto) 2.5 x10^3/uL (0.0-1.1) Eosinophils # (Auto) 1.0 x10^3/uL (0.0-0.7) Basophils # (Auto) 0.2 x10^3/uL (0.0-0.2) Micro BC neg Objective Assessment Fungemia May 30, 2021, C parapsilosis, 06/02 neg RT IJ central line removed cath tip sent for cult 1. Febrile illness resolved 2. Leukocytosis, was on steroids,ileus could contribute,improving 3. COVID-19 pneumonia. 4. Acute hypoxic respiratory failure status post intubation.Now S/P Trach 8/10 Pleural effusion 5. Congestive heart failure, acute on chronic. 6. Acute kidney injury on chronic kidney disease on hemodialysis. 7. Diabetes mellitus 2. 8. Atrial fibrillation. 9. Anemia. 10. Protein-calorie malnutrition. 11. Hypertention 12.Hyponatremia 13. Ileus, Bowel obstruction Peg TF on hold, OG to LIS 14.on PPN 15.Mild to Moderate Pleural effusion 16.Lt eye conjunctivitis resolved Plan Plan of Care Off antibiotics Monitor labs and cultures Continue supportive care Discussed with nursing staff JAD RIVERO MD Jun 24, 2021 08:06
[2021-06-24] MEDS: INSULIN GLARGINE SYRINGE. SQ SCH ×2 (10:57→21:01)
[2021-06-24] MEDS: TPN PER PHARMACY MC PRN (12:58)
--- NOTE | 2021-06-24 13:31 | NUR ---
Pharmacy TPN Dosing Note S: NILAM LAN is a 75 year old M Currently receiving Central Continuous TPN started 05/22/21 B:Pertinent PMH: ILEUS Height: 6 feet, 2 inches Weight: 133.6 kg Current diet: NPO LABS: Sodium: 138 Potassium: 3.3 Chloride: 101 Calcium: 9.2 Corrected Calcium: 11.04 Magnesium: 2.0 CO2: 27 SCr: 2.2 Glucose: 250 Albumin: 1.7 AST: 31 ALT: 26 TPN FORMULA: TPN TYPE: Central Continuous AMINO ACIDS: 95 gm DEXTROSE: 295 gm LIPIDS: 30 gm SODIUM CHLORIDE: 80 mEq SODIUM ACETATE: - mEq SODIUM PHOSPHATE: - mmol POTASSIUM CHLORIDE: 60 mEq POTASSIUM ACETATE: - mEq POTASSIUM PHOSPHATE: 15 mmol MAGNESIUM: 8 mEq CALCIUM: 0 mEq INSULIN: - units MULTIPLE VITAMIN: 5 ml TRACE ELEMENTS: 1 ml(s) TPN PLAN: increase kcl to 60 meq R: Continue tpn at 60 ml/hr Will monitor electrolytes, glucose, and tolerance to TPN. GALEN DE LA CRUZ [facility], 06/24/21 [id number]
--- NOTE | 2021-06-24 14:53 | PDOC ---
DATE OF SERVICE DATE: 06/24/21 TIME: 14:51 SUBJECTIVE ROS Stable OBJECTIVE Vital Signs Vital Signs Date Time Temp Pulse Resp B/P (MAP) Pulse Ox O2 Delivery O2 Flow Rate FiO2 06/24/21 14:08 98.6 97 20 160/51 (87) 100 Ventilator 98.6 06/24/21 12:00 10.0 I & 0 Intake and Output 06/24/21 07:00 Intake Total 580.3 ml Output Total 590 ml Balance -9.7 ml IV Total 580.3 ml Output Urine Total 190 ml Gastric Drainage Total 400 ml PHYSICAL EXAM Physical Exam GENERAL: awake on vent HEENT: NG tube present NECK: right dialysis catheter present , Trach + HEART: S1, S2.no gallop LUNGS: Decreased breath sounds. ABDOMEN: bowel sounds present GENITOURINARY: Nieves in place. EXTREMITIES: trace edema DERMATOLOGIC: no generalized rash. NEUROLOGIC: awake, responsive DIAGNOSIS/ASSESSMENT Assessment & Plan ILDA-ATN- requiring dialysis; , Non -Oliguric , uop marginal currently on MWF schedule , No indication for dialysis today Access - has temp HDC ; No renal recovery ,Replace with Tunneled HDC . Fungemia-on antifungal per ID HypoNatremia- Resolved HypoKalemia - mild, replace CKD stage 3 at baseline Acute Hypoxic Resp failure - S/P Trach COVID 19 Pneumonia Anemia - Hgb stable COMMENT/RELEVANT DATA Meds Current Medications Medications (Trade) Dose Ordered Sig/Jodie Start Time Stop Time Status Last Admin Dose Admin Acetaminophen (Tylenol Supp) 650 mg PRN Q6HRS PRN 05/29/21 16:15 06/17/21 08:12 650 MG Acetaminophen (Tylenol) 650 mg PRN Q6HRS PRN 04/24/21 14:00 Cancel Albumin Human 200 ml @ 200 mls/hr 1X PRN PRN 06/22/21 12:00 06/22/21 17:59 DC Amiodarone HCl (Cordarone) 200 mg DAILY 04/28/21 09:00 05/22/21 16:27 DC 05/21/21 11:07 200 MG Amiodarone HCl 150 mg/Dextrose 103 ml @ 618 mls/hr 1X ONCE 04/27/21 02:30 04/27/21 02:39 DC 04/27/21 02:30 618 MLS/HR Amiodarone HCl 450 mg/Dextrose 259 ml @ 0 mls/hr 1X ONCE 05/22/21 16:30 05/22/21 16:34 DC 05/22/21 16:59 33 MLS/HR Amlodipine Besylate (Norvasc) 10 mg DAILY 05/16/21 09:00 06/24/21 08:02 10 MG Aspirin (Aspirin Chewable) 81 mg DAILYWBKFT 05/03/21 10:00 06/24/21 08:01 81 MG Aspirin (Ecotrin) 81 mg DAILYWBKFT 04/25/21 08:00 05/03/21 09:56 DC 05/02/21 07:20 81 MG Atorvastatin Calcium (Lipitor) 80 mg QHS 04/24/21 21:00 06/21/21 21:02 80 MG Bisacodyl (Dulcolax Supp) 10 mg 1X ONCE 06/19/21 09:45 06/19/21 09:46 DC 06/19/21 09:45 10 MG Bupivacaine HCl/ Epinephrine Bitart (Sensorcain-Epi 0.5%-1:321460 Mpf) 30 ml STK-MED ONCE 05/15/21 07:05 05/15/21 07:06 DC Carvedilol (Coreg) 3.125 mg BIDWMEALS 04/24/21 17:00 04/25/21 15:42 DC 04/25/21 09:23 3.125 MG Cefepime HCl (Maxipime) 1 gm DAILY 06/15/21 09:30 06/21/21 10:26 DC 06/21/21 08:39 1 GM Cellulose (Surgicel Fibrillar 1x2) 1 each STK-MED ONCE 05/15/21 07:05 05/15/21 07:06 DC 05/15/21 09:40 1 EACH Chlorhexidine Gluconate (Peridex) 15 ml BID 04/24/21 21:00 04/25/21 11:19 DC 04/24/21 20:49 15 ML Daptomycin 600 mg/ Sodium Chloride 50 ml @ 100 mls/hr Q48H 05/04/21 15:00 05/06/21 08:07 DC 05/04/21 15:24 100 MLS/HR Daptomycin 620 mg/ Sodium Chloride 50 ml @ 100 mls/hr Q48H 06/15/21 11:00 06/21/21 10:26 DC 06/19/21 11:19 100 MLS/HR Dexamethasone Sodium Phosphate (Decadron) 4 mg STK-MED ONCE 05/15/21 07:53 05/15/21 07:53 DC Dexmedetomidine HCl 400 mcg/ Sodium Chloride 100 ml @ 0 mls/hr CONT PRN 05/04/21 10:30 06/21/21 11:29 32.8 MLS/HR Dextrose (Dextrose 50%-Water Syringe) 12.5 gm PRN Q15MIN PRN 06/09/21 16:30 UNV Digoxin (Lanoxin) 250 mcg 1X ONCE 04/26/21 13:00 04/26/21 13:05 DC 04/26/21 15:02 250 MCG Ephedrine Sulfate (ePHEDrine PF IN SALINE SYRINGE) 50 mg STK-MED ONCE 05/15/21 09:15 05/15/21 09:15 DC Erythromycin (Romycin) 0.25 inch BID 05/17/21 12:00 05/25/21 13:24 DC 05/25/21 07:43 0.25 INCH Etomidate (Amidate) 20 mg STK-MED ONCE 04/24/21 13:38 04/24/21 13:38 DC Fentanyl Citrate 30 ml @ 0 mls/hr CONT PRN 04/24/21 14:00 06/21/21 07:41 2.5 MLS/HR Fentanyl Citrate (Fentanyl 2ml Vial) 25 mcg PRN Q1HR PRN 04/24/21 14:00 06/24/21 12:30 25 MCG Fluconazole/ Sodium Chloride 100 ml @ 100 mls/hr Q24H 06/05/21 09:00 06/15/21 08:53 DC 06/14/21 10:36 100 MLS/HR Furosemide (Lasix) 80 mg TID 05/27/21 09:00 06/01/21 11:08 DC 05/31/21 20:10 80 MG Haloperidol Lactate (Haldol Inj) 5 mg PRN Q6HRS PRN 06/21/21 09:15 06/24/21 08:03 5 MG Heparin Sodium (Porcine) (Heparin Sodium) 5,000 unit Q8HRS 05/18/21 10:00 05/30/21 11:07 DC 05/30/21 06:07 5,000 UNIT Heparin Sodium/ Dextrose 250 ml @ 0 mls/hr CONT PRN 04/24/21 16:45 05/01/21 12:32 DC 05/01/21 05:10 10 MLS/HR Hydralazine HCl (Apresoline Inj) 10 mg PRN QID PRN 05/22/21 16:30 06/23/21 01:27 10 MG Hydralazine HCl (Apresoline) 25 mg QID 05/10/21 10:00 05/22/21 16:27 DC 05/21/21 17:24 25 MG Info (Anti-Coagulation Monitoring By Pharmacy) 1 each PRN DAILY PRN 04/25/21 13:00 05/02/21 07:36 DC 04/26/21 08:51 1 EACH Info (PHARMACY MONITORING -- do not chart) 1 each PRN DAILY PRN 06/22/21 12:00 Info (Tpn Per Pharmacy) 1 each PRN DAILY PRN 05/22/21 10:00 06/24/21 12:58 1 EACH Insulin Glargine (Lantus Syringe) 20 unit BID 05/31/21 09:00 06/24/21 10:57 20 UNIT Insulin Human Lispro (HumaLOG) 3 units Q6HRS 06/09/21 18:00 06/24/21 11:59 3 UNITS Labetalol HCl (Normodyne Iv Push) 20 mg PRN Q2HR PRN 05/01/21 12:30 06/22/21 14:09 20 MG Lidocaine HCl (Buffered Lidocaine 1%) 6 ml 1X ONCE 06/04/21 09:30 06/04/21 09:31 DC 06/04/21 09:34 2 ML Lidocaine HCl (Lidocaine Pf 2% Vial) 5 ml STK-MED ONCE 05/15/21 07:53 05/15/21 07:53 DC Linezolid/Dextrose 300 ml @ 300 mls/hr Q12HR 05/31/21 09:00 UNV Lorazepam (Ativan Inj) 0.25 mg PRN Q4HRS PRN 05/21/21 09:00 06/24/21 08:03 0.25 MG Magnesium Sulfate 50 ml @ 25 mls/hr 1X ONCE 06/02/21 08:45 06/02/21 10:44 DC 06/02/21 09:53 25 MLS/HR Meropenem 500 mg/ Sodium Chloride 50 ml @ 100 mls/hr DAILY 05/23/21 09:00 05/25/21 11:55 DC 05/25/21 07:42 100 MLS/HR Methylnaltrexone [place] (Relistor) 12 mg 1X ONCE 06/10/21 12:00 06/10/21 12:01 DC 06/10/21 13:02 12 MG Metoprolol Tartrate (Lopressor Vial) 5 mg Q6HRS 04/25/21 18:00 06/24/21 11:58 5 MG Metronidazole 100 ml @ 100 mls/hr Q12HR 05/30/21 09:00 06/05/21 07:34 DC 06/04/21 20:32 100 MLS/HR Micafungin Sodium 100 mg/Dextrose 100 ml @ 100 mls/hr Q24H 06/15/21 10:00 06/21/21 10:26 DC 06/21/21 08:54 100 MLS/HR Midazolam HCl (Versed) 5 mg 1X ONCE 05/24/21 15:15 05/24/21 15:16 DC 05/24/21 15:20 5 MG Montelukast Sodium (Singulair) 10 mg HS 04/24/21 21:00 06/21/21 21:02 10 MG Multi-Ingred Cream/Lotion/Oil/ Oint (Artificial Tears Eye Ointment) 1 danielito PRN Q1HR PRN 05/07/21 16:00 05/10/21 20:51 1 DANIELITO Nicardipine HCl 50 mg/Sodium Chloride 250 ml @ 25 mls/hr CONT PRN 05/06/21 18:45 05/20/21 19:47 37.5 MLS/HR Norepinephrine Bitartrate 8 mg/ Dextrose 258 ml @ 25.852 mls/ hr CONT PRN 05/02/21 21:00 05/09/21 06:10 DC 05/02/21 21:22 25.852 MLS/HR Nystatin (Nystop) 1 danielito BID 05/16/21 21:00 06/24/21 08:02 1 DANIELITO Ondansetron HCl (Zofran) 4 mg STK-MED ONCE 05/15/21 07:53 05/15/21 07:53 DC Pantoprazole Sodium (PROTONIX VIAL for IV PUSH) 40 mg DAILYAC 04/26/21 09:30 06/24/21 08:00 40 MG Phenylephrine HCl (PHENYLEPHRINE in 0.9% NACL PF) 1 mg STK-MED ONCE 05/15/21 07:51 05/15/21 07:51 DC Potassium Bicarbonate (Potassium Effervescent Tablet) 40 meq 1X ONCE 05/19/21 08:30 05/19/21 08:31 DC 05/19/21 08:50 40 MEQ Potassium Chloride/Water 100 ml @ 100 mls/hr Q1H 05/23/21 10:45 05/23/21 12:44 DC 05/23/21 13:17 100 MLS/HR Potassium Phosphate 10 mmol/ Sodium Chloride 103.3333 ml @ 51.667 m... Q2H 06/01/21 12:00 06/01/21 15:59 DC 06/01/21 13:24 51.667 MLS/HR Potassium Phosphate 13.6 mmol/Sodium Chloride 254.5333 ml @ 127.... 1X ONCE 06/08/21 14:00 06/08/21 15:59 DC 06/08/21 15:21 127.267 MLS/HR Potassium Phosphate 20 mmol/ Sodium Chloride 256.6667 ml @ 62.5 mls/hr 1X ONCE 05/13/21 12:15 05/13/21 16:21 UNV Potassium Phosphate 30 mmol/ Sodium Chloride 260 ml @ 62.5 mls/hr 1X ONCE 05/13/21 12:15 05/13/21 16:24 UNV Prochlorperazine Edisylate (Compazine) 5 mg PACU PRN PRN 05/15/21 06:00 05/16/21 05:59 DC Propofol 100 ml @ 4.185 mls/ hr CONT PRN 06/02/21 09:30 06/21/21 00:53 4.185 MLS/HR Propofol (Diprivan) 200 mg STK-MED ONCE 05/15/21 07:53 05/15/21 07:53 DC Remdesivir 100 mg/ Sodium Chloride 230 ml @ 460 mls/hr Q24H 04/26/21 17:30 04/29/21 17:59 DC 04/29/21 13:51 460 MLS/HR Remdesivir 200 mg/ Sodium Chloride 210 ml @ 210 mls/hr 1X ONCE 04/25/21 17:30 04/25/21 18:29 DC 04/25/21 17:09 210 MLS/HR Ringer's Solution 1,000 ml @ 30 mls/hr Q24H 05/15/21 06:00 05/15/21 17:59 DC 05/15/21 07:04 30 MLS/HR Rocuronium [place] (Zemuron) 50 mg STK-MED ONCE 05/15/21 07:06 05/15/21 07:07 DC Sodium Bicarbonate (Sodium Bicarb Adult 8.4% Syr) 50 meq 1X ONCE 04/27/21 09:45 04/27/21 09:46 DC 04/27/21 09:50 50 MEQ Sodium Chloride (Normal Saline Flush) 10 ml 1X PRN PRN 06/22/21 12:00 06/23/21 11:59 DC Sodium Chloride 80 meq/Potassium Chloride 10 meq/ Potassium Phosphate 10 mmol/ Magnesium Sulfate 8 meq/ Multivitamins 5 ml/Zinc/Copper/ Manganese/ Selenium 1 ml/ Total Parenteral Nutrition/Amino Acids/Dextrose/ Fat Emulsion Intravenous 1,440 ml @ 60 mls/hr TPN CONT 06/13/21 22:00 06/14/21 21:59 DC 06/13/21 22:00 60 MLS/HR Sodium Chloride 80 meq/Potassium Chloride 20 meq/ Potassium Phosphate 13.6 mmol/Magnesium Sulfate 8 meq/ Multivitamins 5 ml/Zinc/Copper/ Manganese/ Selenium 1 ml/ Total Parenteral Nutrition/Amino Acids/Dextrose/ Fat Emulsion Intravenous 1,440 ml @ 60 mls/hr TPN CONT 06/16/21 22:00 06/17/21 21:59 DC 06/16/21 21:53 60 MLS/HR Sodium Chloride 80 meq/Potassium Chloride 20 meq/ Potassium Phosphate 15 mmol/ Magnesium Sulfate 8 meq/ Multivitamins 5 ml/Zinc/Copper/ Manganese/ Selenium 1 ml/ Total Parenteral Nutrition/Amino Acids/Dextrose/ Fat Emulsion Intravenous 1,440 ml @ 60 mls/hr TPN CONT 06/17/21 22:00 06/18/21 21:59 DC 06/17/21 22:11 60 MLS/HR Sodium Chloride 80 meq/Potassium Chloride 30 meq/ Potassium Phosphate 10 mmol/ Magnesium Sulfate 8 meq/ Multivitamins 5 ml/Zinc/Copper/ Manganese/ Selenium 1 ml/ Total Parenteral Nutrition/Amino Acids/Dextrose/ Fat Emulsion Intravenous 1,440 ml @ 60 mls/hr TPN CONT 06/12/21 22:00 06/13/21 21:59 DC 06/12/21 21:56 60 MLS/HR Sodium Chloride 80 meq/Potassium Chloride 30 meq/ Potassium Phosphate 15 mmol/ Magnesium Sulfate 8 meq/ Multivitamins 5 ml/Zinc/Copper/ Manganese/ Selenium 1 ml/ Total Parenteral Nutrition/Amino Acids/Dextrose 1,440 ml @ 60 mls/hr TPN CONT 06/20/21 22:00 06/21/21 21:59 DC 06/20/21 22:33 60 MLS/HR Sodium Chloride 80 meq/Potassium Chloride 30 meq/ Potassium Phosphate 15 mmol/ Magnesium Sulfate 8 meq/ Multivitamins 5 ml/Zinc/Copper/ Manganese/ Selenium 1 ml/ Total Parenteral Nutrition/Amino Acids/Dextrose/ Fat Emulsion Intravenous 1,440 ml @ 60 mls/hr TPN CONT 06/23/21 22:00 06/24/21 21:59 Cancel Sodium Chloride 80 meq/Potassium Chloride 40 meq/ Potassium Phosphate 15 mmol/ Magnesium Sulfate 8 meq/ Multivitamins 5 ml/Zinc/Copper/ Manganese/ Selenium 1 ml/ Total Parenteral Nutrition/Amino Acids/Dextrose/ Fat Emulsion Intravenous 1,440 ml @ 60 mls/hr TPN CONT 06/23/21 22:00 06/24/21 21:59 06/23/21 22:26 60 MLS/HR Sodium Chloride 80 meq/Potassium Chloride 50 meq/ Potassium Phosphate 15 mmol/ Magnesium Sulfate 8 meq/ Multivitamins 5 ml/Zinc/Copper/ Manganese/ Selenium 1 ml/ Total Parenteral Nutrition/Amino Acids/Dextrose/ Fat Emulsion Intravenous 1,440 ml @ 60 mls/hr TPN CONT 06/23/21 22:00 06/24/21 21:59 Cancel Sodium Chloride 80 meq/Potassium Chloride 60 meq/ Potassium Phosphate 15 mmol/ Magnesium Sulfate 8 meq/ Multivitamins 5 ml/Zinc/Copper/ Manganese/ Selenium 1 ml/ Total Parenteral Nutrition/Amino Acids/Dextrose/ Fat Emulsion Intravenous 1,440 ml @ 60 mls/hr TPN CONT 06/24/21 22:00 06/25/21 21:59 Sodium Chloride 90 meq/Potassium Chloride 25 meq/ Magnesium Sulfate 10 meq/Calcium Gluconate 5 meq/ Multivitamins 5 ml/Zinc/Copper/ Manganese/ Selenium 1 ml/ Total Parenteral Nutrition/Amino Acids/Dextrose/ Fat Emulsion Intravenous 1,080 ml @ 45 mls/hr TPN CONT 05/22/21 22:00 05/23/21 21:59 DC 05/22/21 21:22 45 MLS/HR Sodium Chloride 90 meq/Potassium Chloride 30 meq/ Potassium Phosphate 13.6 mmol/Magnesium Sulfate 10 meq/ Multivitamins 5 ml/Zinc/Copper/ Manganese/ Selenium 1 ml/ Total Parenteral Nutrition/Amino Acids/Dextrose/ Fat Emulsion Intravenous 1,200 ml @ 50 mls/hr TPN CONT 06/01/21 22:00 06/02/21 21:59 DC 06/01/21 21:33 50 MLS/HR Sodium Chloride 90 meq/Potassium Chloride 30 meq/ Potassium Phosphate 13.6 mmol/Magnesium Sulfate 12 meq/ Multivitamins 5 ml/Zinc/Copper/ Manganese/ Selenium 1 ml/ Total Parenteral Nutrition/Amino Acids/Dextrose 1,200 ml @ 50 mls/hr TPN CONT 06/07/21 22:00 06/08/21 21:59 DC 06/07/21 22:16 50 MLS/HR Sodium Chloride 90 meq/Potassium Chloride 30 meq/ Potassium Phosphate 13.6 mmol/Magnesium Sulfate 12 meq/ Multivitamins 5 ml/Zinc/Copper/ Manganese/ Selenium 1 ml/ Total Parenteral Nutrition/Amino Acids/Dextrose/ Fat Emulsion Intravenous 1,440 ml @ 60 mls/hr TPN CONT 06/11/21 22:00 06/12/21 21:59 DC 06/11/21 22:13 60 MLS/HR Sodium Chloride 90 meq/Potassium Chloride 50 meq/ Magnesium Sulfate 10 meq/Calcium Gluconate 5 meq/ Multivitamins 5 ml/Zinc/Copper/ Manganese/ Selenium 1 ml/ Total Parenteral Nutrition/Amino Acids/Dextrose/ Fat Emulsion Intravenous 960 ml @ 40 mls/hr TPN CONT 05/27/21 22:00 05/28/21 21:59 DC 05/27/21 22:03 40 MLS/HR Sodium Chloride 90 meq/Potassium Chloride 50 meq/ Potassium Phosphate 5 mmol/ Magnesium Sulfate 10 meq/Calcium Gluconate 5 meq/ Multivitamins 5 ml/Zinc/Copper/ Manganese/ Selenium 1 ml/ Total Parenteral Nutrition/Amino Acids/Dextrose/ Fat Emulsion Intravenous 1,200 ml @ 50 mls/hr TPN CONT 05/30/21 22:00 05/31/21 21:59 DC 05/30/21 21:57 50 MLS/HR Sodium Phosphate 15 mmol/Dextrose 105 ml @ 105 mls/hr 1X ONCE 05/29/21 11:00 05/29/21 11:59 DC 05/29/21 11:53 105 MLS/HR Sodium Phosphate 15 mmol/Sodium Chloride 105 ml @ 105 mls/hr 1X ONCE 05/29/21 11:45 05/29/21 12:44 UNV Succinylcholine Chloride (Anectine) 200 mg STK-MED ONCE 04/24/21 13:38 04/24/21 13:38 DC Vecuronium [place] (Norcuron Bolus) 6 mg PRN Q6HRS PRN 04/30/21 11:15 06/21/21 09:12 DC 05/14/21 09:12 6 MG Lab Laboratory Tests Test 06/24/21 07:29 06/24/21 07:43 06/24/21 11:57 Glucose (Fingerstick) 250 mg/dL (70-99) 224 mg/dL (70-99) White Blood Count 20.2 x10^3/uL (4.0-11.0) Red Blood Count 2.79 x10^6/uL (4.30-5.70) Hemoglobin 7.8 g/dL (13.0-17.5) Hematocrit 24.0 % (39.0-53.0) Mean Corpuscular Volume 86 fL (79-100) Mean Corpuscular Hemoglobin 28 pg (25-35) Mean Corpuscular Hemoglobin Concent 33 g/dL (31-37) Red Cell Distribution Width 17.2 % (11.5-14.5) Platelet Count 385 x10^3/uL (140-400) Neutrophils (%) (Auto) 66 % (31-73) Lymphocytes (%) (Auto) 16 % (24-48) Monocytes (%) (Auto) 13 % (0-9) Eosinophils (%) (Auto) 5 % (0-3) Basophils (%) (Auto) 1 % (0-3) Neutrophils # (Auto) 13.2 x10^3/uL (1.8-7.7) Lymphocytes # (Auto) 3.3 x10^3/uL (1.0-4.8) Monocytes # (Auto) 2.5 x10^3/uL (0.0-1.1) Eosinophils # (Auto) 1.0 x10^3/uL (0.0-0.7) Basophils # (Auto) 0.2 x10^3/uL (0.0-0.2) Sodium Level 138 mmol/L (136-145) Potassium Level 3.3 mmol/L (3.5-5.1) Chloride Level 101 mmol/L (98-107) Carbon Dioxide Level 27 mmol/L (21-32) Anion Gap 10 (6-14) Blood Urea Nitrogen 52 mg/dL (8-26) Creatinine 2.8 mg/dL (0.7-1.3) Estimated GFR (Cockcroft-Gault) 26.9 Glucose Level 250 mg/dL (70-99) Calcium Level 8.8 mg/dL (8.5-10.1) Phosphorus Level 3.0 mg/dL (2.6-4.7) Magnesium Level 2.0 mg/dL (1.8-2.4) Results All relevant outside records, renal labs, imaging studies, telemetry/EKG's were reviewed. Justicifation of Admission Dx: Justifications for Admission: Justification of Admission Dx: Yes Aspiration Pneumonia: Hemodynamic Instability JASMEET LAM MD Jun 24, 2021 14:53
[2021-06-24] MEDS: MONTELUKAST SODIUM 10 MG TABLET. PO SCH (20:13)
[2021-06-24] MEDS: ATORVASTATIN CALCIUM 40 MG TABLET. PO SCH (20:13)
[2021-06-24] MEDS ORDERED: [UNRECOGNIZED DRUG - OTHER] IV SCH (22:00)
[2021-06-24] MEDS ORDERED: AMINO ACID IV SCH (22:00)
[2021-06-24] MEDS ORDERED: DEXTROSE IV SCH (22:00)
[2021-06-24] MEDS ORDERED: TOTAL PARENTERAL NUTRITION IV SCH (22:00)
[2021-06-25] VITALS (12 sets, daily range): BP systolic 94–163; BP diastolic 42–95
[2021-06-25] MEDS: HALOPERIDOL LACTATE 5 MG/ML VIAL. IVP PRN ×3 (00:21→14:00)
[2021-06-25] MEDS: fentaNYL PF VIAL 100 MCG/2 ML VIAL IV PRN ×2 (00:21→07:57)
[2021-06-25] MEDS: INSULIN LISPRO 300 UNITS/3 ML VIAL. SQ SCH ×6 (00:35→11:54)
[2021-06-25] MEDS: METOPROLOL IV PUSH 5 MG/5 ML VIAL. IVP SCH ×3 (01:09→12:01)
--- NOTE | 2021-06-25 05:41 | RAD ---
EXAM: ABDOMEN ONE VIEW. HISTORY: Nasogastric tube placement. COMPARISON: 06/22/2021. FINDINGS: A frontal view of the abdomen is obtained. A right internal jugular hemodialysis catheter h as its tip in the superior cavoatrial junction. Another left-sided central venous catheter is in the superior vena cava. A nasogastric tube has its tip in the stomach. There are infiltrates in both base s. There are no distended small bowel loops. There is gas distally. IMPRESSION: 1. Nasogastric tube tip in the stomach. Electronically signed by: Arturo Gonzalez MD (06/25/2021 5:38 AM) [facility]
[2021-06-25 06:59] LABS: CREATININE 3.2 mg/dL (0.7-1.3); GFR 23.1; POTASSIUM 3.5 mmol/L (3.5-5.1)
[2021-06-25 07:01] LABS: MAGNESIUM 2.1 mg/dL (1.8-2.4); PHOSPHORUS 3.7 mg/dL (2.6-4.7)
[2021-06-25 07:05] LABS: BASO # 0.2 x10^3/uL (0.0-0.2); BASO % 1 % (0-3); EOS # 1.3 x10^3/uL (0.0-0.7); EOS % 7 % (0-3); HEMATOCRIT 24.1 % (39.0-53.0); HEMOGLOBIN 7.7 g/dL (13.0-17.5); LYMPH # 2.8 x10^3/uL (1.0-4.8); LYMPH % 15 % (24-48); MEAN CORPUSCULAR HEMOGLOBIN 27 pg (25-35); MEAN CORPUSCULAR HGB CONC 32 g/dL (31-37); MEAN CORPUSCULAR VOLUME 86 fL (79-100); MONO # 2.1 x10^3/uL (0.0-1.1); MONO % 12 % (0-9); NEUT # 11.8 x10^3/uL (1.8-7.7); NEUT % 65 % (31-73); PLATELET COUNT 380 x10^3/uL (140-400); RED BLOOD COUNT 2.81 x10^6/uL (4.30-5.70); RED CELL DISTRIBUTION WIDTH 17.1 % (11.5-14.5); WHITE BLOOD COUNT 18.1 x10^3/uL (4.0-11.0)
--- NOTE | 2021-06-25 07:06 | PDOC ---
PULMONARY PROGRESS NOTES DATE: 06/25/21 TIME: 07:06 Subjective Patient currently tolerating trach shield during the day, currently on assist control overnight. Vitals Vital Signs Date Time Temp Pulse Resp B/P (MAP) Pulse Ox O2 Delivery O2 Flow Rate FiO2 06/25/21 05:00 118 26 163/78 (106) 100 Ventilator 06/25/21 04:00 99.3 99.3 06/25/21 00:51 10.0 Comments Tracheostomy ros unable to obtain General: No acute distress HEENT: Other Lungs: Other (b lat diminished bs) Cardiovascular: S1, S2 Abdomen: Soft, Non-tender, Other (Nontender) Extremities: Other (1+ edema) Skin: Warm Labs Laboratory Tests Test 06/23/21 12:08 06/24/21 07:29 06/24/21 07:43 06/24/21 11:57 Glucose (Fingerstick) 241 mg/dL (70-99) 250 mg/dL (70-99) 224 mg/dL (70-99) White Blood Count 20.2 x10^3/uL (4.0-11.0) Red Blood Count 2.79 x10^6/uL (4.30-5.70) Hemoglobin 7.8 g/dL (13.0-17.5) Hematocrit 24.0 % (39.0-53.0) Mean Corpuscular Volume 86 fL (79-100) Mean Corpuscular Hemoglobin 28 pg (25-35) Mean Corpuscular Hemoglobin Concent 33 g/dL (31-37) Red Cell Distribution Width 17.2 % (11.5-14.5) Platelet Count 385 x10^3/uL (140-400) Neutrophils (%) (Auto) 66 % (31-73) Lymphocytes (%) (Auto) 16 % (24-48) Monocytes (%) (Auto) 13 % (0-9) Eosinophils (%) (Auto) 5 % (0-3) Basophils (%) (Auto) 1 % (0-3) Neutrophils # (Auto) 13.2 x10^3/uL (1.8-7.7) Lymphocytes # (Auto) 3.3 x10^3/uL (1.0-4.8) Monocytes # (Auto) 2.5 x10^3/uL (0.0-1.1) Eosinophils # (Auto) 1.0 x10^3/uL (0.0-0.7) Basophils # (Auto) 0.2 x10^3/uL (0.0-0.2) Sodium Level 138 mmol/L (136-145) Potassium Level 3.3 mmol/L (3.5-5.1) Chloride Level 101 mmol/L (98-107) Carbon Dioxide Level 27 mmol/L (21-32) Anion Gap 10 (6-14) Blood Urea Nitrogen 52 mg/dL (8-26) Creatinine 2.8 mg/dL (0.7-1.3) Estimated GFR (Cockcroft-Gault) 26.9 Glucose Level 250 mg/dL (70-99) Calcium Level 8.8 mg/dL (8.5-10.1) Phosphorus Level 3.0 mg/dL (2.6-4.7) Magnesium Level 2.0 mg/dL (1.8-2.4) Test 06/24/21 23:25 06/25/21 06:00 06/25/21 06:28 Glucose (Fingerstick) 206 mg/dL (70-99) 180 mg/dL (70-99) Sodium Level 139 mmol/L (136-145) Potassium Level 3.5 mmol/L (3.5-5.1) Chloride Level 102 mmol/L (98-107) Carbon Dioxide Level 29 mmol/L (21-32) Anion Gap 8 (6-14) Blood Urea Nitrogen 65 mg/dL (8-26) Creatinine 3.2 mg/dL (0.7-1.3) Estimated GFR (Cockcroft-Gault) 23.1 Glucose Level 186 mg/dL (70-99) Calcium Level 9.0 mg/dL (8.5-10.1) Phosphorus Level 3.7 mg/dL (2.6-4.7) Magnesium Level 2.1 mg/dL (1.8-2.4) Laboratory Tests Test 06/24/21 07:29 06/24/21 07:43 06/24/21 11:57 06/24/21 23:25 Glucose (Fingerstick) 250 mg/dL (70-99) 224 mg/dL (70-99) 206 mg/dL (70-99) White Blood Count 20.2 x10^3/uL (4.0-11.0) Red Blood Count 2.79 x10^6/uL (4.30-5.70) Hemoglobin 7.8 g/dL (13.0-17.5) Hematocrit 24.0 % (39.0-53.0) Mean Corpuscular Volume 86 fL (79-100) Mean Corpuscular Hemoglobin 28 pg (25-35) Mean Corpuscular Hemoglobin Concent 33 g/dL (31-37) Red Cell Distribution Width 17.2 % (11.5-14.5) Platelet Count 385 x10^3/uL (140-400) Neutrophils (%) (Auto) 66 % (31-73) Lymphocytes (%) (Auto) 16 % (24-48) Monocytes (%) (Auto) 13 % (0-9) Eosinophils (%) (Auto) 5 % (0-3) Basophils (%) (Auto) 1 % (0-3) Neutrophils # (Auto) 13.2 x10^3/uL (1.8-7.7) Lymphocytes # (Auto) 3.3 x10^3/uL (1.0-4.8) Monocytes # (Auto) 2.5 x10^3/uL (0.0-1.1) Eosinophils # (Auto) 1.0 x10^3/uL (0.0-0.7) Basophils # (Auto) 0.2 x10^3/uL (0.0-0.2) Sodium Level 138 mmol/L (136-145) Potassium Level 3.3 mmol/L (3.5-5.1) Chloride Level 101 mmol/L (98-107) Carbon Dioxide Level 27 mmol/L (21-32) Anion Gap 10 (6-14) Blood Urea Nitrogen 52 mg/dL (8-26) Creatinine 2.8 mg/dL (0.7-1.3) Estimated GFR (Cockcroft-Gault) 26.9 Glucose Level 250 mg/dL (70-99) Calcium Level 8.8 mg/dL (8.5-10.1) Phosphorus Level 3.0 mg/dL (2.6-4.7) Magnesium Level 2.0 mg/dL (1.8-2.4) Test 06/25/21 06:00 06/25/21 06:28 Sodium Level 139 mmol/L (136-145) Potassium Level 3.5 mmol/L (3.5-5.1) Chloride Level 102 mmol/L (98-107) Carbon Dioxide Level 29 mmol/L (21-32) Anion Gap 8 (6-14) Blood Urea Nitrogen 65 mg/dL (8-26) Creatinine 3.2 mg/dL (0.7-1.3) Estimated GFR (Cockcroft-Gault) 23.1 Glucose Level 186 mg/dL (70-99) Calcium Level 9.0 mg/dL (8.5-10.1) Phosphorus Level 3.7 mg/dL (2.6-4.7) Magnesium Level 2.1 mg/dL (1.8-2.4) Glucose (Fingerstick) 180 mg/dL (70-99) Medications Active Scripts Medications Dose Route/Sig Max Daily Dose Days Date Category Glyburide 2.5 Mg Tablet 1 Tab PO DAILY 04/19/21 Rx Polyethylene Glycol 3350 17 Gm Powd.pack 17 Gm PO DAILY 04/19/21 Rx Dok (Docusate Sodium) 100 Mg Capsule 100 Mg PO PRN DAILY PRN 04/19/21 Rx Bisacodyl 5 Mg Tablet. 5 Mg PO PRN DAILY PRN 04/19/21 Rx Acetaminophen 325 Mg Tablet 650 Mg PO PRN Q4HRS PRN 04/19/21 Rx Aspirin Ec (Aspirin) 81 Mg Tablet. 81 Mg PO [id number] 04/19/21 Rx Hydralazine Hcl 25 Mg Tablet 25 Mg PO QID 04/19/21 Rx Fenofibrate 54 Mg Tablet 1 Tab PO DAILY 04/17/21 Reported Potassium Chloride (Potassium Chloride) 20 Meq Tablet.er 20 Meq PO DAILY 04/17/21 Reported Coreg (Carvedilol) 12.5 Mg Tablet 37.5 Mg PO BIDWMEALS 04/17/21 Reported Rosuvastatin Calcium 40 Mg Tablet 40 Mg PO QHS 04/17/21 Reported Gabapentin (Gabapentin) 100 Mg Capsule 200 Mg PO BID 04/17/21 Reported Montelukast Sodium Tablet (Montelukast Sodium) 10 Mg Tablet 10 Mg PO HS 04/17/21 Reported Protonix (Pantoprazole Sodium) 20 Mg Tablet. 2 Tab PO DAILY 04/17/21 Reported Amlodipine Besylate 5 Mg Tablet 5 Mg PO DAILY 04/17/21 Reported Furosemide 40 Mg Tablet 1 Tab PO DAILY 04/17/21 Reported Proair Hfa Inhaler (Albuterol Sulfate) 8.5 Gm Hfa.aer.ad 2 Puff IH PRN Q4-6HRS PRN 21 04/16/21 Reported Advair 100-50 Diskus (Fluticasone/Salmeterol) 1 Each Disk.w.dev 1 Puff IH BID 04/16/21 Reported Comments Impression . IMPRESSION: 1. Acute hypoxic respiratory failure, multifactorial/COVID-19 viral pneumonia/ARDS, ongoing, intubated 04/25/2021, now status post tracheostomy 05/15/[address] chest with bilateral diffuse interstitial infiltrates without any significant pleural effusion 3. Leukocytosis, sepsis 4. Non-ST segment elevation IA 5. History of tobacco use, suspect COPD, unknown FEV1 6. Chronic kidney disease.== HD as needed per renal 7. Metabolic acidosis multifactorial, improved 8. Abnormal chest x-ray, compatible with ARDS CHF 9. Hypoglycemia, continue to monitor 10. Hypotension multifactorial 11. Fever-- 12. Anemia- 13. Atrial fibrillation with rapid ventricular response, currently rate controlled 14. Ileus 15. Type 2 diabetes 16. A. fib 17. Fever secondary to fungemia, resolved Plan . Updated 06/25 Patient difficult weaning, continue weaning as tolerated throughout the day. Tolerating trach shield for short period of time Possible transfer to LTAC today Adjust sedation Antibiotics per ID Follow GI input for ileus Discussed with RN updated 06/24/21 cont vent support setting reviewed, start weaning as tolerated Use as needed Haldol. Low-dose Ativan if needed avoid oversedation Follow ID recs - Follow nephrology recs Follow GI recs -- illeus. PEG continues to be on hold. DVT/GI PPX D/W RN and RT [facility] accepted the patient Pt. is DNR Updated 06/23/21 cont vent support setting reviewed, start weaning as tolerated Use as needed Haldol. Low-dose Ativan if needed avoid oversedation Follow ID recs - Follow nephrology recs Follow GI recs -- illeus. PEG continues to be on hold. DVT/GI PPX D/W RN and RT [facility] has denied patient Pt. is DNR ADELSO AVILA MD Jun 25, 2021 07:06
--- NOTE | 2021-06-25 07:53 | PDOC ---
Infectious Disease Note Subjective: Subjective Patient is awake on ventilator Fio2 40% afebrile last 24 hrs Vital Signs: Vital Signs Vital Signs Date Time Temp Pulse Resp B/P (MAP) Pulse Ox O2 Delivery O2 Flow Rate FiO2 06/25/21 06:00 118 21 152/82 (105) 100 Ventilator 06/25/21 04:00 99.3 99.3 06/25/21 00:51 10.0 Physical Exam: PHYSICAL EXAM GENERAL: awake and comfortable on vent HEENT: Normocephalic, atraumatic, redness and erythema of both eyes improved, NG tube present NECK: right dialysis catheter present clean,Lt neck central line changed ( 05/11) Trach + HEART: S1, S2.no gallop LUNGS: Decreased breath sounds. ABDOMEN: Less distended, bowel sounds present GENITOURINARY: Nieves in place. EXTREMITIES: Edema present. DERMATOLOGIC: Warm, dry, no generalized rash. NEUROLOGIC: Opens eyes PICC line clean Medications: Inpatient Meds: Medications reviewed. Labs: Lab Laboratory Tests Test 06/24/21 11:57 06/24/21 23:25 06/25/21 06:00 06/25/21 06:28 Glucose (Fingerstick) 224 mg/dL (70-99) 206 mg/dL (70-99) 180 mg/dL (70-99) White Blood Count 18.1 x10^3/uL (4.0-11.0) Red Blood Count 2.81 x10^6/uL (4.30-5.70) Hemoglobin 7.7 g/dL (13.0-17.5) Hematocrit 24.1 % (39.0-53.0) Mean Corpuscular Volume 86 fL (79-100) Mean Corpuscular Hemoglobin 27 pg (25-35) Mean Corpuscular Hemoglobin Concent 32 g/dL (31-37) Red Cell Distribution Width 17.1 % (11.5-14.5) Platelet Count 380 x10^3/uL (140-400) Neutrophils (%) (Auto) 65 % (31-73) Lymphocytes (%) (Auto) 15 % (24-48) Monocytes (%) (Auto) 12 % (0-9) Eosinophils (%) (Auto) 7 % (0-3) Basophils (%) (Auto) 1 % (0-3) Neutrophils # (Auto) 11.8 x10^3/uL (1.8-7.7) Lymphocytes # (Auto) 2.8 x10^3/uL (1.0-4.8) Monocytes # (Auto) 2.1 x10^3/uL (0.0-1.1) Eosinophils # (Auto) 1.3 x10^3/uL (0.0-0.7) Basophils # (Auto) 0.2 x10^3/uL (0.0-0.2) Sodium Level 139 mmol/L (136-145) Potassium Level 3.5 mmol/L (3.5-5.1) Chloride Level 102 mmol/L (98-107) Carbon Dioxide Level 29 mmol/L (21-32) Anion Gap 8 (6-14) Blood Urea Nitrogen 65 mg/dL (8-26) Creatinine 3.2 mg/dL (0.7-1.3) Estimated GFR (Cockcroft-Gault) 23.1 Glucose Level 186 mg/dL (70-99) Calcium Level 9.0 mg/dL (8.5-10.1) Phosphorus Level 3.7 mg/dL (2.6-4.7) Magnesium Level 2.1 mg/dL (1.8-2.4) Objective: Assessment: Fungemia May 30, 2021 1. Febrile illness resolved 2. Leukocytosis, was on steroids,ileus could contribute,improving 3. COVID-19 pneumonia. 4. Acute hypoxic respiratory failure status post intubation.Now S/P Trach 8/10 Pleural effusion 5. Congestive heart failure, acute on chronic. 6. Acute kidney injury on chronic kidney disease on hemodialysis. 7. Diabetes mellitus 2. 8. Atrial fibrillation. 9. Anemia. 10. Protein-calorie malnutrition. 11. Hypertention 12.Hyponatremia 13. Ileus, Bowel obstruction 14.on PPN 15.Mild to Moderate Pleural effusion 16.Lt eye conjunctivitis resolved Plan: Plan of Care Off antibiotics Monitor labs and cultures Continue supportive care Awaiting transfer to [facility] ALAYNA RIVERO MD Jun 25, 2021 07:53
[2021-06-25] MEDS: PANTOPRAZOLE IV PUSH 40 MG VIAL. IVP SCH (07:54)
[2021-06-25] MEDS: ASPIRIN CHEWABLE 81 MG TABLET. PO SCH (07:54)
[2021-06-25] MEDS: NYSTATIN TOPICAL POWDER 15GM BOTTLE. TP SCH (07:55)
[2021-06-25 08:00] LABS: % BASOS 2 % (0-3); % EOS 5 % (0-5); % LYMPHS 11 % (24-48); % MONOS 8 % (0-10); % SEGS 74 % (35-66)
[2021-06-25 08:01] LABS: ANISOCYTOSIS SLIGHT; PLT ESTIMATE ADEQUATE (ADEQUATE)
--- NOTE | 2021-06-25 08:17 | SNU/HH DC ---
DISCHARGE ORDERS DISCHARGE INFORMATION: DISCHARGE DATE: Jun 25, 2021 FINAL DIAGNOSIS Problems Medical Problems: (1) Elevated troponin Status: Acute (2) COVID-19 Status: Acute (3) Pulmonary edema Status: Acute CONDITION ON DISCHARGE: Stable CODE STATUS: Code Status: DNR/DNI LTAC: ADMIT TO LTAC: Yes POST DISCHARGE ORDERS: ACTIVITY ORDERS: Activity as tolerated WEIGHT BEARING STATUS: As tolerated DIET AFTER DISCHARGE: ADA WOUND/INCISION CARE: Ice to area for comfort, Keep wound/cast CDI CHECKS AFTER DISCHARGE: CHECKS AFTER DISCHARGE: Check blood press - daily TREATMENT/EQUIPMENT ORDERS: ADAPTIVE EQUIPMENT NEEDED: None, Front wheeled walker Physical Therapy For: Evalulation/Treatment Occupational Therapy For: Evaluation/Treatment Speech Language Pathology For: Evaluation/Treatment DISCHARGE MEDICATIONS: Home Meds Active Scripts Glyburide (GLYBURIDE) 2.5 Mg Tablet, 1 TAB PO DAILY for DIABETES for 14 Days, #14 TAB 5 Refills Prov:ALBA SWAIN MD 04/19/21 Polyethylene Glycol 3350 (POLYETHYLENE GLYCOL 3350) 17 Gm Powd.pack, 17 GM PO DAILY for PREVENT CONSTIPATION for 14 Days, #14 PKT Prov:ALBA SWAIN MD 04/19/21 Docusate Sodium (DOK) 100 Mg Capsule, 100 MG PO PRN DAILY PRN for HARD STOOLS for 30 Days, #60 CAP Prov:ALBA SWAIN MD 04/19/21 Bisacodyl (BISACODYL) 5 Mg Tablet., 5 MG PO PRN DAILY PRN for CONSTIPATION 2ND CHOICE for 14 Days, #14 TAB.SR Prov:ALBA SWAIN MD 04/19/21 Acetaminophen (ACETAMINOPHEN) 325 Mg Tablet, 650 MG PO PRN Q4HRS PRN for TEMP OVER 100.4F OR MILD PAIN for 14 Days, #60 TAB Prov:ALBA SWAIN MD 04/19/21 Aspirin (ASPIRIN EC) 81 Mg Tablet., 81 MG PO DAILYWBKFT for HEART HEALTH for 30 Days, #30 TAB.SR Prov:ALBA SWAIN MD 04/19/21 Hydralazine Hcl (HYDRALAZINE HCL) 25 Mg Tablet, 25 MG PO QID for BLOOD PRESSURE for 30 Days, #120 TAB Prov:ALBA SWAIN MD 04/19/21 Reported Medications Fenofibrate (FENOFIBRATE) 54 Mg Tablet, 1 TAB PO DAILY for daily, #30 TAB 5 Refills 04/17/21 Potassium Chloride (POTASSIUM CHLORIDE ) 20 Meq Tablet.er, 20 MEQ PO DAILY for SUPPLEMENT, TAB.SR 04/17/21 Carvedilol (COREG ) 12.5 Mg Tablet, 37.5 MG PO BIDWMEALS for CARDIAC, TAB 04/17/21 Rosuvastatin Calcium (Rosuvastatin Calcium) 40 Mg Tablet, 40 MG PO QHS for chol, TAB 04/17/21 Gabapentin (GABAPENTIN ) 100 Mg Capsule, 200 MG PO BID for NEUROGENIC PAIN, CAP 04/17/21 Montelukast Sodium (MONTELUKAST SODIUM TABLET ) 10 Mg Tablet, 10 MG PO HS for FOR ASTHMA, TAB 0 Refills 04/17/21 Pantoprazole Sodium (PROTONIX) 20 Mg Tablet.dr, 2 TAB PO DAILY for GERD, #30 TAB 04/17/21 Amlodipine Besylate (AMLODIPINE BESYLATE) 5 Mg Tablet, 5 MG PO DAILY for HTN, TAB 04/17/21 Furosemide (FUROSEMIDE) 40 Mg Tablet, 1 TAB PO DAILY for CHF, #30 TAB 5 Refills 04/17/21 Albuterol Sulfate (PROAIR HFA INHALER) 8.5 Gm Hfa.aer.ad, 2 PUFF IH PRN Q4-6HRS PRN for wheezing for 21 Days, #1 INHALER 0 Refills 04/16/21 Fluticasone/Salmeterol (ADVAIR 100-50 DISKUS) 1 Each Disk.w.dev, 1 PUFF IH BID for asthma, #1 INHALER 3 Refills 04/16/21 BRIAN JASSO MD Jun 25, 2021 08:17
--- NOTE | 2021-06-25 08:26 | PDOC3 ---
Discharge Summary Visit Information Date of Admission: Apr 24, 2021 Date of Discharge: Jun 25, 2021 Admitting Diagnosis: COVID Final Diagnosis Problems Medical Problems: (1) Elevated troponin Status: Acute (2) Person under investigation for COVID-19 Status: Acute (3) Pulmonary edema Status: Acute Brief Hospital Course Allergies Allergies Coded Allergies Type Severity Reaction Last Updated Verified Penicillins Allergy Intermediate 04/16/21 Yes morphine Allergy Intermediate 04/16/21 Yes Vital Signs Vital Signs Date Time Temp Pulse Resp B/P (MAP) Pulse Ox O2 Delivery O2 Flow Rate FiO2 06/25/21 08:12 98.4 84 20 119/42 (67) 100 Ventilator 98.4 06/25/21 00:51 10.0 Lab Results Laboratory Tests Test 06/23/21 12:08 06/24/21 07:29 06/24/21 07:43 06/24/21 11:57 Glucose (Fingerstick) 241 mg/dL (70-99) 250 mg/dL (70-99) 224 mg/dL (70-99) White Blood Count 20.2 x10^3/uL (4.0-11.0) Red Blood Count 2.79 x10^6/uL (4.30-5.70) Hemoglobin 7.8 g/dL (13.0-17.5) Hematocrit 24.0 % (39.0-53.0) Mean Corpuscular Volume 86 fL (79-100) Mean Corpuscular Hemoglobin 28 pg (25-35) Mean Corpuscular Hemoglobin Concent 33 g/dL (31-37) Red Cell Distribution Width 17.2 % (11.5-14.5) Platelet Count 385 x10^3/uL (140-400) Neutrophils (%) (Auto) 66 % (31-73) Lymphocytes (%) (Auto) 16 % (24-48) Monocytes (%) (Auto) 13 % (0-9) Eosinophils (%) (Auto) 5 % (0-3) Basophils (%) (Auto) 1 % (0-3) Neutrophils # (Auto) 13.2 x10^3/uL (1.8-7.7) Lymphocytes # (Auto) 3.3 x10^3/uL (1.0-4.8) Monocytes # (Auto) 2.5 x10^3/uL (0.0-1.1) Eosinophils # (Auto) 1.0 x10^3/uL (0.0-0.7) Basophils # (Auto) 0.2 x10^3/uL (0.0-0.2) Sodium Level 138 mmol/L (136-145) Potassium Level 3.3 mmol/L (3.5-5.1) Chloride Level 101 mmol/L (98-107) Carbon Dioxide Level 27 mmol/L (21-32) Anion Gap 10 (6-14) Blood Urea Nitrogen 52 mg/dL (8-26) Creatinine 2.8 mg/dL (0.7-1.3) Estimated GFR (Cockcroft-Gault) 26.9 Glucose Level 250 mg/dL (70-99) Calcium Level 8.8 mg/dL (8.5-10.1) Phosphorus Level 3.0 mg/dL (2.6-4.7) Magnesium Level 2.0 mg/dL (1.8-2.4) Test 06/24/21 23:25 06/25/21 06:00 06/25/21 06:28 Glucose (Fingerstick) 206 mg/dL (70-99) 180 mg/dL (70-99) White Blood Count 18.1 x10^3/uL (4.0-11.0) Red Blood Count 2.81 x10^6/uL (4.30-5.70) Hemoglobin 7.7 g/dL (13.0-17.5) Hematocrit 24.1 % (39.0-53.0) Mean Corpuscular Volume 86 fL (79-100) Mean Corpuscular Hemoglobin 27 pg (25-35) Mean Corpuscular Hemoglobin Concent 32 g/dL (31-37) Red Cell Distribution Width 17.1 % (11.5-14.5) Platelet Count 380 x10^3/uL (140-400) Neutrophils (%) (Auto) 65 % (31-73) Lymphocytes (%) (Auto) 15 % (24-48) Monocytes (%) (Auto) 12 % (0-9) Eosinophils (%) (Auto) 7 % (0-3) Basophils (%) (Auto) 1 % (0-3) Neutrophils # (Auto) 11.8 x10^3/uL (1.8-7.7) Lymphocytes # (Auto) 2.8 x10^3/uL (1.0-4.8) Monocytes # (Auto) 2.1 x10^3/uL (0.0-1.1) Eosinophils # (Auto) 1.3 x10^3/uL (0.0-0.7) Basophils # (Auto) 0.2 x10^3/uL (0.0-0.2) Segmented Neutrophils % 74 % (35-66) Lymphocytes % 11 % (24-48) Monocytes % 8 % (0-10) Eosinophils % 5 % (0-5) Basophils % 2 % (0-3) Platelet Estimate Adequate (ADEQUATE) Giant Platelets Few Anisocytosis Slight Sodium Level 139 mmol/L (136-145) Potassium Level 3.5 mmol/L (3.5-5.1) Chloride Level 102 mmol/L (98-107) Carbon Dioxide Level 29 mmol/L (21-32) Anion Gap 8 (6-14) Blood Urea Nitrogen 65 mg/dL (8-26) Creatinine 3.2 mg/dL (0.7-1.3) Estimated GFR (Cockcroft-Gault) 23.1 Glucose Level 186 mg/dL (70-99) Calcium Level 9.0 mg/dL (8.5-10.1) Phosphorus Level 3.7 mg/dL (2.6-4.7) Magnesium Level 2.1 mg/dL (1.8-2.4) Laboratory Tests Test 06/24/21 11:57 06/24/21 23:25 06/25/21 06:00 06/25/21 06:28 Glucose (Fingerstick) 224 mg/dL (70-99) 206 mg/dL (70-99) 180 mg/dL (70-99) White Blood Count 18.1 x10^3/uL (4.0-11.0) Red Blood Count 2.81 x10^6/uL (4.30-5.70) Hemoglobin 7.7 g/dL (13.0-17.5) Hematocrit 24.1 % (39.0-53.0) Mean Corpuscular Volume 86 fL (79-100) Mean Corpuscular Hemoglobin 27 pg (25-35) Mean Corpuscular Hemoglobin Concent 32 g/dL (31-37) Red Cell Distribution Width 17.1 % (11.5-14.5) Platelet Count 380 x10^3/uL (140-400) Neutrophils (%) (Auto) 65 % (31-73) Lymphocytes (%) (Auto) 15 % (24-48) Monocytes (%) (Auto) 12 % (0-9) Eosinophils (%) (Auto) 7 % (0-3) Basophils (%) (Auto) 1 % (0-3) Neutrophils # (Auto) 11.8 x10^3/uL (1.8-7.7) Lymphocytes # (Auto) 2.8 x10^3/uL (1.0-4.8) Monocytes # (Auto) 2.1 x10^3/uL (0.0-1.1) Eosinophils # (Auto) 1.3 x10^3/uL (0.0-0.7) Basophils # (Auto) 0.2 x10^3/uL (0.0-0.2) Segmented Neutrophils % 74 % (35-66) Lymphocytes % 11 % (24-48) Monocytes % 8 % (0-10) Eosinophils % 5 % (0-5) Basophils % 2 % (0-3) Platelet Estimate Adequate (ADEQUATE) Giant Platelets Few Anisocytosis Slight Sodium Level 139 mmol/L (136-145) Potassium Level 3.5 mmol/L (3.5-5.1) Chloride Level 102 mmol/L (98-107) Carbon Dioxide Level 29 mmol/L (21-32) Anion Gap 8 (6-14) Blood Urea Nitrogen 65 mg/dL (8-26) Creatinine 3.2 mg/dL (0.7-1.3) Estimated GFR (Cockcroft-Gault) 23.1 Glucose Level 186 mg/dL (70-99) Calcium Level 9.0 mg/dL (8.5-10.1) Phosphorus Level 3.7 mg/dL (2.6-4.7) Magnesium Level 2.1 mg/dL (1.8-2.4) Brief Hospital Course Chief Complaint Respiratory failure requiring intubation COVID-19 Acute [place] A. fib SIRS Hypertension with hypertensive urgency Hyperlipidemia CKD Diabetes History of bilateral subclavian stenosis History of marijuana use Severe protein calorie malnutrition Trach placed on May 15 GI consulted for PEG evaluation --> patient with a lot of vomiting yesterday thus current NG tube to low intermittent suction Anemia secondary to acute blood loss, possible multiple lab draws and related to advanced CKD Ileus Positive Mariya on 1 out of 4 bottles on blood cultures History of Present Illness History of Present Illness 06/25 Patient seen and examined at bedside. No clinical changes, appears stable still. Planning for discharge today to select hospital. 35 minutes critical care time. 06/24/2021: Afebrile. Awake on vent with FiO2 40%, PEEP 5. Off antibiotics. Still with no stooling, await bowel function. Still not a PEG candidate with ongoing ileus. Per nephrology, may need tunneled HD cath next week if no renal recovery. Received voicemail from Kathi with [facility] that appeal has been approved for LTAC. Discussed with RN, will likely be able to discharge to LTAC on TPN tomorrow. Critical care time 30 min spent reviewing charts, reviewing imaging, reviewing labs, and discussion with RN. 06/23/2021: Febrile overnight, T-max 100.9 F. On vent with FiO2 40%, PEEP 5. Hemoglobin 7.8; will continue to monitor given blood noted in the Nieves catheter. Still not a PEG candidate with ongoing ileus. If no renal recovery will need Tunneled HD catheter likely next week, per nephrology. LTAC appeal pending. Continue antibiotics, per ID. Critical care time 30 min spent reviewing charts, reviewing imaging, reviewing labs, and discussion with RN. 06/22/2021: Afebrile. On trach collar 10 L. No stool yet. Blood noted in Nieves catheter; possibly traumatic, per RN. Will follow hemoglobin. Still not a PEG candidate with ongoing ileus. Nephrology following; if no renal recovery will need Tunneled HD catheter. LTAC appeal pending. Continue antibiotics, per ID. Critical care time 30 min spent reviewing charts, reviewing imaging, reviewing labs, and discussion with RN. 06/21/2021: Awake on trach collar at 10 L. Afebrile. No stooling yet; await active bowel function. Discussed with RN, still requiring Precedex to avoid agitation. This is been discontinued in lieu of as needed Haldol. If necessary may increase Ativan dosage as needed. LTAC appeal pending. Continue HD, per nephrology. Continue antibiotics, per ID. Critical care time 30 min spent reviewing charts, reviewing imaging, reviewing labs, and discussion with RN. 06/20/2021: Afebrile. Awake on vent with FiO2 40%, PEEP 5; difficult to wean. Accepted to LTAC, but insurance denied. Appeal for discharge to LTAC without PEG in process. Not yet stooling. Continue HD, per nephrology. Continue antibiotics, per ID. Critical care time 30 min spent reviewing charts, reviewing imaging, reviewing labs, and discussion with RN. 06/19/2021: Afebrile, no acute ins overnight. On vent with FiO2 40%, PEEP 5. Patient has been accepted at [facility] pending insurance authorization, however [employer] denying until PEG can be placed. Appeal process has been started as currently patient is poor PEG tube candidate. Still not stooling still with high NG output, 400 mL overnight. General surgery consulted and will defer to GI regarding PEG; favor PEG or surgical G-tube. Will continue to follow nephrology and GI recommendations. Continue daptomycin, cefepime, and micafungin, per ID. Critical care time 30 min spent reviewing charts, reviewing imaging, reviewing labs, and discussion with RN. 06/18/2021: Patient seen in ICU. Afebrile, on vent with FiO2 40%, PEEP 5. At th is point his treatment is COVID-19 recovered. Continue treatment with daptomycin, cefepime, and micafungin, per ID. Patient has been accepted to [facility], pending insurance authorization. Critical care 30 minutes reviewing labs, reviewing charts, reviewing imaging, discussion with RN. 06/17/2021 Patient seen and examined in the ICU Still mechanically ventilated AC/20/500/40/5 of PEEP with 100% saturation Currently has NG to suction (low intermittent suction) Sedated with fentanyl propofol and Precedex Has IV TPN hanging Has admit on his right hand SCDs in place Nieves to bedside drainage He remains critically ill 06/16/2021 Patient seen and examined in the ICU Discussed with RT Discussed with RN Chart reviewed Patient remains mechanically ventilated via tracheostomy AC/20/300/40 percent with 5 of PEEP Satting 98% Sedated with fentanyl Has TPN hanging Has IV microfungi and hanging He remains very critically ill 06/15/2021 Patient seen and examined in the ICU He remains on the vent via tracheostomy AC/20/500/40 percent with 5 of PEEP Setting in the mid 90 Has fentanyl and Precedex for sedation His hemoglobin is running low today at 6.7 I have ordered a unit of blood He is on IV TPN Discussed with RN Chart reviewed He remains critically ill 06/14/2021 patient seen and examined in the ICU chart reviewed discussed with RN he remains on the vent via tracheostomy vent settings as follows AC/20/500/40 percent with 5 of PEEP has mitts on for patient safety has SCDs on Nieves to bedside drainage sedated with fentanyl propofol and Precedex he remains critically ill 06/13/2021 Patient seen and examined in the ICU Chart reviewed Discussed with RN Vent settings as follows Spontaneous respirations with 40% FiO2 10 of pressure support Sedated with fentanyl propofol and Dex Has Nieves to bedside drainage Mitts for patient safety 06/12/2021 Patient seen and examined in the ICU He is currently on dialysis (dialysis nurse states we took 2 L off today and we plan to do daily dialysis for a few days per Dr. Ariza) Has trach shield in place Chart reviewed Discussed with RN He remains critically ill 06/10: Tolerating 30 cc every 3 hours tube feed with minimal residuals overnight. Remains in A. fib. Abdomen appears a bit more distended, soft. Minimally sedated propofol Precedex on [employer] FiO2 40% PEEP 5. CC time 31 min spent in reviewing chart, labs, and images. Discussed with RN and SW. Mr Cunha is a 75 yo male w/ PMHx CAD, HTN, Hyperlipidemia, subclavian steel syndrome, subclavian stenosis s/p left subclavian sent placement complicated by retroperitoneal hematoma s/p evacuation in 08/2015), asthma, BART, CKD, DM2 who presented from home with home health care noted that he was short of breath and valverde with O2 saturations less than 89% as low as 84% not improved with nasal cannulated oxygen placed on CPAP and brought to ED for further care. He was just discharged from the hospital a week ago on April 19, 2021 for abdominal pain and was going for further cardiac testing with outpatient stress testing scheduled on May 28, 2021. Had echocardiogram April 17, 2021 with normal-appearing EF with moderate concentric LVH no significant valvular abnormalities. WBC 20, Hb 10.7, platelets 268, NA 140, K3.8, BUN 21, CR 2.9, glucose 162, albumin 3, troponin I 1.372, NT proBNP 33,318. EKG appears sinus tachycardia rate of 105 bpm with multiple PACs small ST depressions in lead II and V5. TWI in V6. Chest radiograph with diffuse interstitial and alveolar opacities and ET tube 5.8 cm above the leilani. Due to worsening respiratory status ED physician elected to intubate patient. Seen postintubation. Blood pressure little low after propofol bolus, but improved. Significant white frothy sputum per ET tube. Admitted to ICU for further care 04/25: On vent FiO2 50, PEEP 5. Febrile, T-max 103.3. Patient was initiated on cooling blankets. Procalcitonin 0.13. 04/26: COVID-19 positive. Febrile overnight that was managed with cooling blankets. On vent with FiO2 50%, PEEP 5. Per cardiology, elevated troponins likely secondary to demand ischemia; continue heparin drip per cardiology. Continue treatment with remdesivir, steroids, and antibiotics. 04/27: Afebrile. Vent with FiO2 50%, PEEP 5. Troponin 2.8 yesterday; probable type II, demand ischemia. New onset A. fib. Cont heparin gtt and prn digoxin, per cardiology. Contnue treatment with remdesivir, steroids, and prophylactic antibiotics. BG 323 this morning; will add basal insulin. 04/28: Afebrile. FiO2 50%, PEEP 5. Nontunneled HD catheter placed yesterday due to worsening kidney function; eGFR 16 (CKD4). Chest x-ray showed unchanged interstitial opacities. Continue empiric antibiotics, steroids, and remdesivir. Continue heparin infusion, for new dx A. fib. 04/29: Afebrile, remains on vent at FiO2 45%, PEEP 5. WBC 20.4. Hemodialysis per nephrology. We will continue treatment with empiric antibiotics, remdesivir, and steroids. Continue heparin infusion and supportive care. 04/30: Patient seen and examined in the [facility] ICU. He remains on the vent. AC/ 20/500/40 5% with 5 PEEP. Currently on dialysis. Has OG feeds running. Has a Nieves to bedside drainage. Sedated with propofol and fentanyl. He remains critically ill 05/01: Patient seen and examined in the [facility] ICU. He is still intubated. AC/20/500/40 percent with 5 of PEEP. In A. fib. Sedated with propofol fentanyl and Versed. Has a heparin drip 05/02: Patient seen and examined in the [place] [id number] ICU. He is sedated with propofol fentanyl and Versed. AC/20/500/40 percent with 5 of PEEP. He remains critically ill 05/03: Patient seen and examined in the [place] [address] ICU. He is still intubated. AC/20/500/70 percent with 5 of PEEP. Sedated with fentanyl Versed and propofol. Remains critically ill 05/04: Patient seen and examined in the [place] [address] ICU. Still intubated. Sedated with propofol and fentanyl. AC/20/500/70 percent with 5 of PEEP. On dialysis currently 05/05: Patient seen and examined in the [place] [id number] ICU. He remains on the vent. AC/20/500/40 percent with 5 of PEEP. He remains critically ill 05/06: Patient seen and examined in the [place] [address] ICU. He remains mechanically ventilated. AC/20/500/40 05/07: Patient seen and examined in the [place] [id number] ICU. He remains mechanically ventilated. ILDA on CKD - ATN 2/2 sepsis/ Hypotension,UOP good,on IV Lasix ; requiring dialysis, . AC/20/500/40 percent with 5 of PEEP. Sedated with propofol Dex and fentanyl 05/08: Currently on 40%, 5 of PEEP. now on cardene gtt. Patient seen and examined in the [place] [id number] ICU. 05/09: VENT [id number]%, 5 of PEEP. Mild pulmonary edema with new small right pleur al effusion and basilar opacities. Change central line and send cath tip for cultures. 05/10: VENT [id number]%, 5 of PEEP. Mild pulmonary edema with new small right pleural effusion and basilar opacities. Patient seen and examined in the [place] [id number] ICU 05/11: Continue iv cefepime , add zyvox, sputum culture 05/12: Continue iv cefepime , add zyvox, sputum culture. VENT [id number]%, 5 of PE EP. now on cardene gtt prn 05/13: Did not tolerate sedation vacation 05/11/2021, profoundly hypertensive. ABG/CXR--changes as needed. Continue iv cefepime , add zyvox, sputum culture. VENT [id number]%, 5 of PEEP. Mild pulmonary edema with new small right pleural effusion and basilar opacities. now on cardene gtt prn 05/14: Patient seen and examined at bedside. Remains intubated and sedated planning for tracheostomy tomorrow. Continue current respiratory support; continue antibiotics, continue sedation. Follow recommendations of pulmonary, renal, and infectious disease 05/15: Patient seen and examined at bedside. Remains intubated and sedated planning for tracheostomy today. Continue current respiratory support; continue antibiotics, continue sedation. 05/16: Patient seen and examined at bedside. Underwent tracheostomy yesterday today tolerated well. When seen this morning patient is still notably sedated respiratory status is stable. measures. 05/17: Patient seen and examined at bedside. Attempting to wean sedation. Patient with some diarrhea. Per infectious disease will give erythromycin eye ointment for eye lesions. Nephro and pulm also following. 05/18: Patient seen and examined at bedside. Attempting to increase tube feeds, GI consulted for PEG evaluation. Otherwise no major clinical changes. Continue to wean sedation. Plan of care discussed with bedside nurse. 05/19: Patient seen and examined at bedside. Apparently had a fair bit of vomiting overnight. GI following for PEG evaluation. Otherwise patient remained stable. Plan of care discussed with bedside nurse. 05/20: Patient seen and examined at bedside. Again had multiple bouts of vomiting yesterday. GI continuing to follow for PEG evaluation although on hold right now due to persistent vomiting. Leukocytosis 05/21: Afebrile, no acute events overnight. Remains on vent, FiO2 40%, PEEP 5. S/P tracheostomy on 05/15/2021. KUB on 05/19/2021 consistent with ileus. Per GI, continue NG tube to suction and parenteral nutrition for now. Continue IV antibiotics, per ID. Continue hemodialysis 05/22: Afebrile. On vent with FiO2 40%, PEEP 5. Excessive NG output. Continue NG tube to suction for now; PEG on hold for now. Continue hemodialysis, per nephrology. Continue IV antibiotics, per ID. 05/23: Afebrile. Vent with FiO2 40%, PEEP 5. NG tube for 635 mL out overnight. Continue NG tube to suction. HD 05/24: No acute events overnight. Afebrile. NG tube output has decreased. Kidney function appears stable. Continue IV antibiotics, per ID. Patient has been accepted to [facility], pending insurance authorization. 05/25: Afebrile. On vent with FiO2 40%, PEEP 5. Hemoglobin 8.6 yesterday, hemoglobin 7.3 today. Reportedly had HD yesterday. Continue IV antibiotics, per ID; WBC possibly reactive to ileus. Has been accepted at [facility]; transfer pending, but will need PEG tube placement prior. 05/26: Afebrile. On vent with FiO2 40%, PEEP 5. Hemoglobin 7.3 yesterday, and hemoglobin 7.2 today; continue to trend. Leukocytosis slightly improved, WBC 12.9 today. Has been accepted at [facility]; transfer pending, but will need PEG tube placement prior. 05/27: Afebrile. On vent with FiO2 40%, PEEP 5. Hemoglobin remains stable at 7.2 today; continue to trend. WBC 13.4. Kidney function appears to be stab ilized. LTAC transfer is pending PEG tube placement. Off meropenem; will continue to monitor. Kidney function appears to be stable. 05/28: No acute events overnight. Patient doing well on trach with settings of 40% FiO2 and PEEP of 8. Pending PEG placement after ileus is resolved will defer this to GI for timing of PEG placement.. Also pending tunneled catheter placement for dialysis. 05/29: No acute events or night. Patient tolerating trach collar humidified. Saturating at 99%. Pending PICC line placement and IJ central line removal. Per ID. Possibly in not needing HD. Making urine adequately with Lasix as needed. 05/30: No acute events overnight. Patient doing well on trach collar. Hemoglobin decreased down to 6.7 pending 1 unit PRBC transfusion. Restarted on linezolid and Flagyl and cefepime. Pending PICC placement and central line IJ removal. 05/31: No acute events overnight. Patient saturating 100% on trach collar. Hemoglobin improved after 1 unit PRBC transfusion to 8.4. Patient is currently undergoing dialysis and his labs have been stable. Patient's chart, labs, images were reviewed and discussed with RN 06/01: No acute events overnight. Patient saturating well on trach collar. Patient seen and examined bedside and on HD. Hemoglobin trended down from 8.4- 7.3. Afebrile in the last 24 hours. Patient's chart, labs, images were reviewed and discussed with RN 06/02: No acute events overnight. Patient saturating 100% on trach collar. Tmax 100.3. Yeast 1 of 4 bottles on blood cultures. Plan to remove central line and dialysis catheter. Family consideration for tunneled catheterization possibly hold. Micafungin was started per ID. 06/03: No acute events overnight. Left IJ placed by IR. Defer to ID for antibiotic management for cultures of the catheter tip and yeast. 06/04: No overnight events afebrile. Sedated on propofol and Precedex. On vent with tracheostomy PEEP 5 FiO2 40%. Being treated for fungemia and receiving TPN. Left IJ CVC functioning well. HD catheter right. 06/05: Afebrile. Still requiring minimal sedation on propofol and Precedex. Requiring vent support via trach PEEP five FiO2 40%. KUB with less gaseous distention. No BM but bowel sounds are audible. 06/06: Afebrile. On minimal sedation with propofol and Precedex and vent support via trach PEEP 5 FiO2 40%. Still in A. fib on telemetry. Catheter tip no growth to date sputum with Mariya. Repeat blood cultures no growth to date 06/07: Afebrile. On minimal sedation propofol and Precedex with for trach PEEP 5 FiO2 40%. He is to be in A. fib. Hb 6.9. Will transfuse with dialysis today. Did have stool smear overnight 06/08: Afebrile. On minimal sedation propofol Precedex tolerated pressure support yesterday back on AC PEEP 5 FiO2 40% use more alert trying to pull out his t racheostomy successfully disconnected himself from the vent. Not easily redirectable. Admits for safety. In A. fib. Labs pending 06/09: Vomited large amount of tube feeding overnight and NG attached to low suction. Remains in A. fib. Minimal sedation with propofol and Precedex. Tolerated pressure support back on AC FiO2 40% PEEP 5 getting dialysis currently. 06/11/2021: Patient seen and examined in the ICU. Mitts on for patient safety. Sedated with dexmedetomidine, propofol, and fentanyl. IV TPN hanging. NG tube running at 10 mL per hour. Currently on trach shield 10L. Discussed with RN. Chart reviewed. Discharge Information Condition at Discharge: Improved Disposition/Orders: D/C to Another Facility Scheduled Amlodipine Besylate (Amlodipine Besylate) 5 Mg Tablet, 5 MG PO DAILY for HTN, (Reported) Entered as Reported by: CAMRYN DIAZ on 04/17/211537 Aspirin (Aspirin Ec) 81 Mg Tablet.dr, 81 MG PO [id number] for HEART HEALTH for 30 Days, #30 Prescribed by: ALBA SWAIN MD on 04/19/211434 Last Action: Continued on 04/24/211517 by BRIAN HARDING MD Carvedilol (Coreg ) 12.5 Mg Tablet, 37.5 MG PO BIDWMEALS for CARDIAC, (Reported) Entered as Reported by: CAMRYN DIAZ on 04/17/211537 Last Action: Continued on 04/24/211517 by BRIAN HARDING MD Fluticasone/Salmeterol (Advair 100-50 Diskus) 1 Each Disk.w.dev, 1 PUFF IH BID for asthma, #1 Ref 3 (Reported) Entered as Reported by: Nohemy Shepherd on 04/16/212127 Gabapentin (Gabapentin ) 100 Mg Capsule, 200 MG PO BID for NEUROGENIC PAIN, (Reported) Entered as Reported by: CAMRYN DIAZ on 04/17/211537 Glyburide (Glyburide) 2.5 Mg Tablet, 1 TAB PO DAILY for DIABETES for 14 Days, #14 Ref 5 Prescribed by: ALBA SWAIN MD on 04/19/211437 Hydralazine Hcl (Hydralazine Hcl) 25 Mg Tablet, 25 MG PO QID for BLOOD PRESSURE for 30 Days, #120 Prescribed by: ALBA SWAIN MD on 04/19/211434 Montelukast Sodium (Montelukast Sodium Tablet ) 10 Mg Tablet, 10 MG PO HS for FOR ASTHMA, Ref 0 (Reported) Entered as Reported by: CAMRYN DIAZ on 04/17/211537 Last Action: Continued on 04/24/211517 by BRIAN HARDING MD Pantoprazole Sodium (Protonix) 20 Mg Tablet.dr, 2 TAB PO DAILY for GERD, #30 (Reported) Entered as Reported by: CARMYN DIAZ on 04/17/211537 Polyethylene Glycol 3350 (Polyethylene Glycol 3350) 17 Gm Powd.pack, 17 GM PO DAILY for PREVENT CONSTIPATION for 14 Days, #14 Prescribed by: ALBA SWAIN MD on 04/19/21 1435 Rosuvastatin Calcium (Rosuvastatin Calcium) 40 Mg Tablet, 40 MG PO QHS for chol, (Reported) Entered as Reported by: CAMRYN DIAZ on 04/17/211537 Last Action: Converted on 04/24/211517 by BRIAN HARDING MD Scheduled PRN Acetaminophen (Acetaminophen) 325 Mg Tablet, 650 MG PO PRN Q4HRS PRN for TEMP OVER 100.4F OR MILD PAIN for 14 Days, #60 Prescribed by: ALBA SWAIN MD on 04/19/21 1435 Albuterol Sulfate (Proair Hfa Inhaler) 8.5 Gm Hfa.aer.ad, 2 PUFF IH PRN Q4-6HRS PRN for wheezing for 21 Days, #1 Ref 0 (Reported) Entered as Reported by: Nohemy Shepherd on 04/16/212127 Bisacodyl (Bisacodyl) 5 Mg Tablet.dr, 5 MG PO PRN DAILY PRN for CONSTIPATION 2ND CHOICE for 14 Days, #14 Prescribed by: ALBA SWAIN MD on 04/19/21 1435 Docusate Sodium (Dok) 100 Mg Capsule, 100 MG PO PRN DAILY PRN for HARD STOOLS for 30 Days, #60 Prescribed by: ALBA SWAIN MD on 04/19/21 1435 Discontinued Medications Fenofibrate (Fenofibrate) 54 Mg Tablet, 1 TAB PO DAILY for daily, #30 Ref 5 (Reported) Entered as Reported by: CAMRYN DIAZ on 04/17/211537 Furosemide (Furosemide) 40 Mg Tablet, 1 TAB PO DAILY for CHF, #30 Ref 5 (Reported) Entered as Reported by: CAMRYN DIAZ on 04/17/211537 Potassium Chloride (Potassium Chloride ) 20 Meq Tablet.er, 20 MEQ PO DAILY for SUPPLEMENT, (Reported) Entered as Reported by: CAMRYN DIAZ on 04/17/211537 Justicifation of Admission Dx: Justifications for Admission: Justification of Admission Dx: Yes Aspiration Pneumonia: Hemodynamic Instability BRIAN JASSO MD Jun 25, 2021 08:26
--- NOTE | 2021-06-25 09:28 | PDOC ---
DATE OF SERVICE DATE: 06/25/21 TIME: 09:21 SUBJECTIVE ROS Stable OBJECTIVE Vital Signs Vital Signs Date Time Temp Pulse Resp B/P (MAP) Pulse Ox O2 Delivery O2 Flow Rate FiO2 06/25/21 08:12 98.4 84 20 119/42 (67) 100 Ventilator 98.4 06/25/21 00:51 10.0 I & 0 Intake and Output 06/25/21 07:00 Intake Total 695 ml Output Total 330 ml Balance 365 ml IV Total 695 ml Output Urine Total 330 ml PHYSICAL EXAM Physical Exam GENERAL: awake on vent HEENT: NG tube present NECK: right dialysis catheter present , Trach + HEART: S1, S2.no gallop LUNGS: Decreased breath sounds. ABDOMEN: bowel sounds present GENITOURINARY: Nieves in place. EXTREMITIES: trace edema DERMATOLOGIC: no generalized rash. NEUROLOGIC: awake, responsive DIAGNOSIS/ASSESSMENT Assessment & Plan ILDA-ATN- requiring dialysis; , Non -Oliguric , uop marginal currently on MWF schedule , No indication for dialysis today Access - has temp HDC ; No renal recovery ,Replace with Tunneled HDC . Fungemia-on antifungal per ID HypoNatremia- Resolved HypoKalemia - mild, replace CKD stage 3 at baseline Acute Hypoxic Resp failure - S/P Trach COVID 19 Pneumonia Anemia - Hgb stable DIAGNOSIS/ASSESSMENT Assessment & Plan ILDA-ATN- requiring dialysis; , uop marginal currently on MWF schedule , dialysis today , discussed treatment plan with DRn Access - has temp HDC ; No renal recovery , replace temp to Tunneled HDC Fungemia-on antifungal per ID HypoNatremia- Resolved HypoKalemia - mild, replace CKD stage 3 at baseline Acute Hypoxic Resp failure - S/P Trach COVID 19 Pneumonia Anemia - Hgb stable COMMENT/RELEVANT DATA Meds Current Medications Medications (Trade) Dose Ordered Sig/Jodie Start Time Stop Time Status Last Admin Dose Admin Acetaminophen (Tylenol Supp) 650 mg PRN Q6HRS PRN 05/29/21 16:15 06/17/21 08:12 650 MG Acetaminophen (Tylenol) 650 mg PRN Q6HRS PRN 04/24/21 14:00 Cancel Albumin Human 200 ml @ 200 mls/hr 1X PRN PRN 06/22/21 12:00 06/22/21 17:59 DC Amiodarone HCl (Cordarone) 200 mg DAILY 04/28/21 09:00 05/22/21 16:27 DC 05/21/21 11:07 200 MG Amiodarone HCl 150 mg/Dextrose 103 ml @ 618 mls/hr 1X ONCE 04/27/21 02:30 04/27/21 02:39 DC 04/27/21 02:30 618 MLS/HR Amiodarone HCl 450 mg/Dextrose 259 ml @ 0 mls/hr 1X ONCE 05/22/21 16:30 05/22/21 16:34 DC 05/22/21 16:59 33 MLS/HR Amlodipine Besylate (Norvasc) 10 mg DAILY 05/16/21 09:00 06/25/21 07:55 10 MG Aspirin (Aspirin Chewable) 81 mg DAILYWBKFT 05/03/21 10:00 06/25/21 07:54 81 MG Aspirin (Ecotrin) 81 mg DAILYWBKFT 04/25/21 08:00 05/03/21 09:56 DC 05/02/21 07:20 81 MG Atorvastatin Calcium (Lipitor) 80 mg QHS 04/24/21 21:00 06/21/21 21:02 80 MG Bisacodyl (Dulcolax Supp) 10 mg 1X ONCE 06/19/21 09:45 06/19/21 09:46 DC 06/19/21 09:45 10 MG Bupivacaine HCl/ Epinephrine Bitart (Sensorcain-Epi 0.5%-1:202101 Mpf) 30 ml STK-MED ONCE 05/15/21 07:05 05/15/21 07:06 DC Carvedilol (Coreg) 3.125 mg BIDWMEALS 04/24/21 17:00 04/25/21 15:42 DC 04/25/21 09:23 3.125 MG Cefepime HCl (Maxipime) 1 gm DAILY 06/15/21 09:30 06/21/21 10:26 DC 06/21/21 08:39 1 GM Cellulose (Surgicel Fibrillar 1x2) 1 each STK-MED ONCE 05/15/21 07:05 05/15/21 07:06 DC 05/15/21 09:40 1 EACH Chlorhexidine Gluconate (Peridex) 15 ml BID 04/24/21 21:00 04/25/21 11:19 DC 04/24/21 20:49 15 ML Daptomycin 600 mg/ Sodium Chloride 50 ml @ 100 mls/hr Q48H 05/04/21 15:00 05/06/21 08:07 DC 05/04/21 15:24 100 MLS/HR Daptomycin 620 mg/ Sodium Chloride 50 ml @ 100 mls/hr Q48H 06/15/21 11:00 06/21/21 10:26 DC 06/19/21 11:19 100 MLS/HR Dexamethasone Sodium Phosphate (Decadron) 4 mg STK-MED ONCE 05/15/21 07:53 05/15/21 07:53 DC Dexmedetomidine HCl 400 mcg/ Sodium Chloride 100 ml @ 0 mls/hr CONT PRN 05/04/21 10:30 06/21/21 11:29 32.8 MLS/HR Dextrose (Dextrose 50%-Water Syringe) 12.5 gm PRN Q15MIN PRN 06/09/21 16:30 UNV Digoxin (Lanoxin) 250 mcg 1X ONCE 04/26/21 13:00 04/26/21 13:05 DC 04/26/21 15:02 250 MCG Ephedrine Sulfate (ePHEDrine PF IN SALINE SYRINGE) 50 mg STK-MED ONCE 05/15/21 09:15 05/15/21 09:15 DC Erythromycin (Romycin) 0.25 inch BID 05/17/21 12:00 05/25/21 13:24 DC 05/25/21 07:43 0.25 INCH Etomidate (Amidate) 20 mg STK-MED ONCE 04/24/21 13:38 04/24/21 13:38 DC Fentanyl Citrate 30 ml @ 0 mls/hr CONT PRN 04/24/21 14:00 06/21/21 07:41 2.5 MLS/HR Fentanyl Citrate (Fentanyl 2ml Vial) 25 mcg PRN Q1HR PRN 04/24/21 14:00 06/25/21 07:57 25 MCG Fluconazole/ Sodium Chloride 100 ml @ 100 mls/hr Q24H 06/05/21 09:00 06/15/21 08:53 DC 06/14/21 10:36 100 MLS/HR Furosemide (Lasix) 80 mg TID 05/27/21 09:00 06/01/21 11:08 DC 05/31/21 20:10 80 MG Haloperidol Lactate (Haldol Inj) 5 mg PRN Q6HRS PRN 06/21/21 09:15 06/25/21 07:56 5 MG Heparin Sodium (Porcine) (Heparin Sodium) 5,000 unit Q8HRS 05/18/21 10:00 05/30/21 11:07 DC 05/30/21 06:07 5,000 UNIT Heparin Sodium/ Dextrose 250 ml @ 0 mls/hr CONT PRN 04/24/21 16:45 05/01/21 12:32 DC 05/01/21 05:10 10 MLS/HR Hydralazine HCl (Apresoline Inj) 10 mg PRN QID PRN 05/22/21 16:30 06/23/21 01:27 10 MG Hydralazine HCl (Apresoline) 25 mg QID 05/10/21 10:00 05/22/21 16:27 DC 05/21/21 17:24 25 MG Info (Anti-Coagulation Monitoring By Pharmacy) 1 each PRN DAILY PRN 04/25/21 13:00 05/02/21 07:36 DC 04/26/21 08:51 1 EACH Info (PHARMACY MONITORING -- do not chart) 1 each PRN DAILY PRN 06/22/21 12:00 Info (Tpn Per Pharmacy) 1 each PRN DAILY PRN 05/22/21 10:00 06/24/21 12:58 1 EACH Insulin Glargine (Lantus Syringe) 20 unit BID 05/31/21 09:00 06/24/21 21:01 20 UNIT Insulin Human Lispro (HumaLOG) 3 units Q6HRS 06/09/21 18:00 06/25/21 00:35 3 UNITS Labetalol HCl (Normodyne Iv Push) 20 mg PRN Q2HR PRN 05/01/21 12:30 06/22/21 14:09 20 MG Lidocaine HCl (Buffered Lidocaine 1%) 6 ml 1X ONCE 06/04/21 09:30 06/04/21 09:31 DC 06/04/21 09:34 2 ML Lidocaine HCl (Lidocaine Pf 2% Vial) 5 ml STK-MED ONCE 05/15/21 07:53 05/15/21 07:53 DC Linezolid/Dextrose 300 ml @ 300 mls/hr Q12HR 05/31/21 09:00 UNV Lorazepam (Ativan Inj) 0.25 mg PRN Q4HRS PRN 05/21/21 09:00 06/25/21 07:56 0.25 MG Magnesium Sulfate 50 ml @ 25 mls/hr 1X ONCE 06/02/21 08:45 06/02/21 10:44 DC 06/02/21 09:53 25 MLS/HR Meropenem 500 mg/ Sodium Chloride 50 ml @ 100 mls/hr DAILY 05/23/21 09:00 05/25/21 11:55 DC 05/25/21 07:42 100 MLS/HR Methylnaltrexone [place] (Relistor) 12 mg 1X ONCE 06/10/21 12:00 06/10/21 12:01 DC 06/10/21 13:02 12 MG Metoprolol Tartrate (Lopressor Vial) 5 mg Q6HRS 04/25/21 18:00 06/25/21 01:09 5 MG Metronidazole 100 ml @ 100 mls/hr Q12HR 05/30/21 09:00 06/05/21 07:34 DC 06/04/21 20:32 100 MLS/HR Micafungin Sodium 100 mg/Dextrose 100 ml @ 100 mls/hr Q24H 06/15/21 10:00 06/21/21 10:26 DC 06/21/21 08:54 100 MLS/HR Midazolam HCl (Versed) 5 mg 1X ONCE 05/24/21 15:15 05/24/21 15:16 DC 05/24/21 15:20 5 MG Montelukast Sodium (Singulair) 10 mg HS 04/24/21 21:00 06/21/21 21:02 10 MG Multi-Ingred Cream/Lotion/Oil/ Oint (Artificial Tears Eye Ointment) 1 danielito PRN Q1HR PRN 05/07/21 16:00 05/10/21 20:51 1 DANIEILTO Nicardipine HCl 50 mg/Sodium Chloride 250 ml @ 25 mls/hr CONT PRN 05/06/21 18:45 05/20/21 19:47 37.5 MLS/HR Norepinephrine Bitartrate 8 mg/ Dextrose 258 ml @ 25.852 mls/ hr CONT PRN 05/02/21 21:00 05/09/21 06:10 DC 05/02/21 21:22 25.852 MLS/HR Nystatin (Nystop) 1 danielito BID 05/16/21 21:00 06/25/21 07:55 1 DANIELITO Ondansetron HCl (Zofran) 4 mg STK-MED ONCE 05/15/21 07:53 05/15/21 07:53 DC Pantoprazole Sodium (PROTONIX VIAL for IV PUSH) 40 mg DAILYAC 04/26/21 09:30 06/25/21 07:54 40 MG Phenylephrine HCl (PHENYLEPHRINE in 0.9% NACL PF) 1 mg STK-MED ONCE 05/15/21 07:51 05/15/21 07:51 DC Potassium Bicarbonate (Potassium Effervescent Tablet) 40 meq 1X ONCE 05/19/21 08:30 05/19/21 08:31 DC 05/19/21 08:50 40 MEQ Potassium Chloride/Water 100 ml @ 100 mls/hr Q1H 05/23/21 10:45 05/23/21 12:44 DC 05/23/21 13:17 100 MLS/HR Potassium Phosphate 10 mmol/ Sodium Chloride 103.3333 ml @ 51.667 m... Q2H 06/01/21 12:00 06/01/21 15:59 DC 06/01/21 13:24 51.667 MLS/HR Potassium Phosphate 13.6 mmol/Sodium Chloride 254.5333 ml @ 127.... 1X ONCE 06/08/21 14:00 06/08/21 15:59 DC 06/08/21 15:21 127.267 MLS/HR Potassium Phosphate 20 mmol/ Sodium Chloride 256.6667 ml @ 62.5 mls/hr 1X ONCE 05/13/21 12:15 05/13/21 16:21 UNV Potassium Phosphate 30 mmol/ Sodium Chloride 260 ml @ 62.5 mls/hr 1X ONCE 05/13/21 12:15 05/13/21 16:24 UNV Prochlorperazine Edisylate (Compazine) 5 mg PACU PRN PRN 05/15/21 06:00 05/16/21 05:59 DC Propofol 100 ml @ 4.185 mls/ hr CONT PRN 06/02/21 09:30 06/21/21 00:53 4.185 MLS/HR Propofol (Diprivan) 200 mg STK-MED ONCE 05/15/21 07:53 05/15/21 07:53 DC Remdesivir 100 mg/ Sodium Chloride 230 ml @ 460 mls/hr Q24H 04/26/21 17:30 04/29/21 17:59 DC 04/29/21 13:51 460 MLS/HR Remdesivir 200 mg/ Sodium Chloride 210 ml @ 210 mls/hr 1X ONCE 04/25/21 17:30 04/25/21 18:29 DC 04/25/21 17:09 210 MLS/HR Ringer's Solution 1,000 ml @ 30 mls/hr Q24H 05/15/21 06:00 05/15/21 17:59 DC 05/15/21 07:04 30 MLS/HR Rocuronium [place] (Zemuron) 50 mg STK-MED ONCE 05/15/21 07:06 05/15/21 07:07 DC Sodium Bicarbonate (Sodium Bicarb Adult 8.4% Syr) 50 meq 1X ONCE 04/27/21 09:45 04/27/21 09:46 DC 04/27/21 09:50 50 MEQ Sodium Chloride (Normal Saline Flush) 10 ml 1X PRN PRN 06/22/21 12:00 06/23/21 11:59 DC Sodium Chloride 80 meq/Potassium Chloride 10 meq/ Potassium Phosphate 10 mmol/ Magnesium Sulfate 8 meq/ Multivitamins 5 ml/Zinc/Copper/ Manganese/ Selenium 1 ml/ Total Parenteral Nutrition/Amino Acids/Dextrose/ Fat Emulsion Intravenous 1,440 ml @ 60 mls/hr TPN CONT 06/13/21 22:00 06/14/21 21:59 DC 06/13/21 22:00 60 MLS/HR Sodium Chloride 80 meq/Potassium Chloride 20 meq/ Potassium Phosphate 13.6 mmol/Magnesium Sulfate 8 meq/ Multivitamins 5 ml/Zinc/Copper/ Manganese/ Selenium 1 ml/ Total Parenteral Nutrition/Amino Acids/Dextrose/ Fat Emulsion Intravenous 1,440 ml @ 60 mls/hr TPN CONT 06/16/21 22:00 06/17/21 21:59 DC 06/16/21 21:53 60 MLS/HR Sodium Chloride 80 meq/Potassium Chloride 20 meq/ Potassium Phosphate 15 mmol/ Magnesium Sulfate 8 meq/ Multivitamins 5 ml/Zinc/Copper/ Manganese/ Selenium 1 ml/ Total Parenteral Nutrition/Amino Acids/Dextrose/ Fat Emulsion Intravenous 1,440 ml @ 60 mls/hr TPN CONT 06/17/21 22:00 06/18/21 21:59 DC 06/17/21 22:11 60 MLS/HR Sodium Chloride 80 meq/Potassium Chloride 30 meq/ Potassium Phosphate 10 mmol/ Magnesium Sulfate 8 meq/ Multivitamins 5 ml/Zinc/Copper/ Manganese/ Selenium 1 ml/ Total Parenteral Nutrition/Amino Acids/Dextrose/ Fat Emulsion Intravenous 1,440 ml @ 60 mls/hr TPN CONT 06/12/21 22:00 06/13/21 21:59 DC 06/12/21 21:56 60 MLS/HR Sodium Chloride 80 meq/Potassium Chloride 30 meq/ Potassium Phosphate 15 mmol/ Magnesium Sulfate 8 meq/ Multivitamins 5 ml/Zinc/Copper/ Manganese/ Selenium 1 ml/ Total Parenteral Nutrition/Amino Acids/Dextrose 1,440 ml @ 60 mls/hr TPN CONT 06/20/21 22:00 06/21/21 21:59 DC 06/20/21 22:33 60 MLS/HR Sodium Chloride 80 meq/Potassium Chloride 30 meq/ Potassium Phosphate 15 mmol/ Magnesium Sulfate 8 meq/ Multivitamins 5 ml/Zinc/Copper/ Manganese/ Selenium 1 ml/ Total Parenteral Nutrition/Amino Acids/Dextrose/ Fat Emulsion Intravenous 1,440 ml @ 60 mls/hr TPN CONT 06/23/21 22:00 06/24/21 21:59 Cancel Sodium Chloride 80 meq/Potassium Chloride 40 meq/ Potassium Phosphate 15 mmol/ Magnesium Sulfate 8 meq/ Multivitamins 5 ml/Zinc/Copper/ Manganese/ Selenium 1 ml/ Total Parenteral Nutrition/Amino Acids/Dextrose/ Fat Emulsion Intravenous 1,440 ml @ 60 mls/hr TPN CONT 06/23/21 22:00 06/24/21 21:59 DC 06/23/21 22:26 60 MLS/HR Sodium Chloride 80 meq/Potassium Chloride 50 meq/ Potassium Phosphate 15 mmol/ Magnesium Sulfate 8 meq/ Multivitamins 5 ml/Zinc/Copper/ Manganese/ Selenium 1 ml/ Total Parenteral Nutrition/Amino Acids/Dextrose/ Fat Emulsion Intravenous 1,440 ml @ 60 mls/hr TPN CONT 06/23/21 22:00 06/24/21 21:59 Cancel Sodium Chloride 80 meq/Potassium Chloride 60 meq/ Potassium Phosphate 15 mmol/ Magnesium Sulfate 8 meq/ Multivitamins 5 ml/Zinc/Copper/ Manganese/ Selenium 1 ml/ Total Parenteral Nutrition/Amino Acids/Dextrose/ Fat Emulsion Intravenous 1,440 ml @ 60 mls/hr TPN CONT 06/24/21 22:00 06/25/21 21:59 06/24/21 21:10 60 MLS/HR Sodium Chloride 90 meq/Potassium Chloride 25 meq/ Magnesium Sulfate 10 meq/Calcium Gluconate 5 meq/ Multivitamins 5 ml/Zinc/Copper/ Manganese/ Selenium 1 ml/ Total Parenteral Nutrition/Amino Acids/Dextrose/ Fat Emulsion Intravenous 1,080 ml @ 45 mls/hr TPN CONT 05/22/21 22:00 05/23/21 21:59 DC 05/22/21 21:22 45 MLS/HR Sodium Chloride 90 meq/Potassium Chloride 30 meq/ Potassium Phosphate 13.6 mmol/Magnesium Sulfate 10 meq/ Multivitamins 5 ml/Zinc/Copper/ Manganese/ Selenium 1 ml/ Total Parenteral Nutrition/Amino Acids/Dextrose/ Fat Emulsion Intravenous 1,200 ml @ 50 mls/hr TPN CONT 06/01/21 22:00 06/02/21 21:59 DC 06/01/21 21:33 50 MLS/HR Sodium Chloride 90 meq/Potassium Chloride 30 meq/ Potassium Phosphate 13.6 mmol/Magnesium Sulfate 12 meq/ Multivitamins 5 ml/Zinc/Copper/ Manganese/ Selenium 1 ml/ Total Parenteral Nutrition/Amino Acids/Dextrose 1,200 ml @ 50 mls/hr TPN CONT 06/07/21 22:00 06/08/21 21:59 DC 06/07/21 22:16 50 MLS/HR Sodium Chloride 90 meq/Potassium Chloride 30 meq/ Potassium Phosphate 13.6 mmol/Magnesium Sulfate 12 meq/ Multivitamins 5 ml/Zinc/Copper/ Manganese/ Selenium 1 ml/ Total Parenteral Nutrition/Amino Acids/Dextrose/ Fat Emulsion Intravenous 1,440 ml @ 60 mls/hr TPN CONT 06/11/21 22:00 06/12/21 21:59 DC 06/11/21 22:13 60 MLS/HR Sodium Chloride 90 meq/Potassium Chloride 50 meq/ Magnesium Sulfate 10 meq/Calcium Gluconate 5 meq/ Multivitamins 5 ml/Zinc/Copper/ Manganese/ Selenium 1 ml/ Total Parenteral Nutrition/Amino Acids/Dextrose/ Fat Emulsion Intravenous 960 ml @ 40 mls/hr TPN CONT 05/27/21 22:00 05/28/21 21:59 DC 05/27/21 22:03 40 MLS/HR Sodium Chloride 90 meq/Potassium Chloride 50 meq/ Potassium Phosphate 5 mmol/ Magnesium Sulfate 10 meq/Calcium Gluconate 5 meq/ Multivitamins 5 ml/Zinc/Copper/ Manganese/ Selenium 1 ml/ Total Parenteral Nutrition/Amino Acids/Dextrose/ Fat Emulsion Intravenous 1,200 ml @ 50 mls/hr TPN CONT 05/30/21 22:00 05/31/21 21:59 DC 05/30/21 21:57 50 MLS/HR Sodium Phosphate 15 mmol/Dextrose 105 ml @ 105 mls/hr 1X ONCE 05/29/21 11:00 05/29/21 11:59 DC 05/29/21 11:53 105 MLS/HR Sodium Phosphate 15 mmol/Sodium Chloride 105 ml @ 105 mls/hr 1X ONCE 05/29/21 11:45 05/29/21 12:44 UNV Succinylcholine Chloride (Anectine) 200 mg STK-MED ONCE 04/24/21 13:38 04/24/21 13:38 DC Vecuronium [place]esk[place] (Norcuron Bolus) 6 mg PRN Q6HRS PRN 04/30/21 11:15 06/21/21 09:12 DC 05/14/21 09:12 6 MG Lab Laboratory Tests Test 06/24/21 11:57 06/24/21 23:25 06/25/21 06:00 06/25/21 06:28 Glucose (Fingerstick) 224 mg/dL (70-99) 206 mg/dL (70-99) 180 mg/dL (70-99) White Blood Count 18.1 x10^3/uL (4.0-11.0) Red Blood Count 2.81 x10^6/uL (4.30-5.70) Hemoglobin 7.7 g/dL (13.0-17.5) Hematocrit 24.1 % (39.0-53.0) Mean Corpuscular Volume 86 fL (79-100) Mean Corpuscular Hemoglobin 27 pg (25-35) Mean Corpuscular Hemoglobin Concent 32 g/dL (31-37) Red Cell Distribution Width 17.1 % (11.5-14.5) Platelet Count 380 x10^3/uL (140-400) Neutrophils (%) (Auto) 65 % (31-73) Lymphocytes (%) (Auto) 15 % (24-48) Monocytes (%) (Auto) 12 % (0-9) Eosinophils (%) (Auto) 7 % (0-3) Basophils (%) (Auto) 1 % (0-3) Neutrophils # (Auto) 11.8 x10^3/uL (1.8-7.7) Lymphocytes # (Auto) 2.8 x10^3/uL (1.0-4.8) Monocytes # (Auto) 2.1 x10^3/uL (0.0-1.1) Eosinophils # (Auto) 1.3 x10^3/uL (0.0-0.7) Basophils # (Auto) 0.2 x10^3/uL (0.0-0.2) Segmented Neutrophils % 74 % (35-66) Lymphocytes % 11 % (24-48) Monocytes % 8 % (0-10) Eosinophils % 5 % (0-5) Basophils % 2 % (0-3) Platelet Estimate Adequate (ADEQUATE) Giant Platelets Few Anisocytosis Slight Sodium Level 139 mmol/L (136-145) Potassium Level 3.5 mmol/L (3.5-5.1) Chloride Level 102 mmol/L (98-107) Carbon Dioxide Level 29 mmol/L (21-32) Anion Gap 8 (6-14) Blood Urea Nitrogen 65 mg/dL (8-26) Creatinine 3.2 mg/dL (0.7-1.3) Estimated GFR (Cockcroft-Gault) 23.1 Glucose Level 186 mg/dL (70-99) Calcium Level 9.0 mg/dL (8.5-10.1) Phosphorus Level 3.7 mg/dL (2.6-4.7) Magnesium Level 2.1 mg/dL (1.8-2.4) Results All relevant outside records, renal labs, imaging studies, telemetry/EKG's were reviewed. Justicifation of Admission Dx: Justifications for Admission: Justification of Admission Dx: Yes Aspiration Pneumonia: Hemodynamic Instability JASMEET LAM MD Jun 25, 2021 09:28
--- NOTE | 2021-06-25 10:13 | NUR ---
SS following up with discharge planning. SS reviewed pt chart and discussed with pt RN. Pt is currently on the vent at 40%. COVID19 recovered. Pt on TPN. Pt accepted at [facility], ; fax [phone]. Insurance authorization was approved over the weekend. Discharge orders received. Clinical updates and discharge orders phoned and faxed to [facility]. Bed available. Pt will discharge today and go to [facility] at 1500 via [facility] transport, . Packet and ambulance form on the chart. Pt's RN and pt's daughters notified.
[2021-06-25] MEDS ORDERED: DIALYSIS PATIENT. MC PRN (10:45)
--- NOTE | 2021-06-25 11:33 | PDOC ---
Date of Service: DATE: 06/25/21 TIME: 11:31 Objective: Objective: Discharging to [facility] today. 400cc from NGT yesterday. Vital Signs: Vital Signs Date Time Temp Pulse Resp B/P (MAP) Pulse Ox O2 Delivery O2 Flow Rate FiO2 06/25/21 11:10 86 32 94/67 (76) 100 Tracheal Collar 06/25/21 11:09 10.0 06/25/21 08:12 98.4 98.4 Labs: Laboratory Tests Test 06/24/21 11:57 06/24/21 23:25 06/25/21 06:28 Glucose (Fingerstick) 224 mg/dL (70-99) 206 mg/dL (70-99) 180 mg/dL (70-99) PE: GEN: chronically ill HEENT: trach/vent ABD: brown/bilious output from NG A/P: COVID resp failure s/p trach, CKD, ileus - on TPN, not PEG candidate -- Dc per primary. Justicifation of Admission Dx: Justifications for Admission: Justification of Admission Dx: Yes Aspiration Pneumonia: Hemodynamic Instability TAIWO THEODORE Jun 25, 2021 11:33
[2021-06-25] MEDS: INSULIN GLARGINE SYRINGE. SQ SCH (11:53)
[2021-07-04] MEDS ORDERED: PANT40VI IV (10:22)
[2021-07-04] MEDS ORDERED: IPRA3AMP29 NEB (10:22)
[2021-07-04] MEDS ORDERED: INSU100V6 SQ (10:22)
[2021-07-04] MEDS ORDERED: AMLO-187 PO (10:22)
[2021-07-04] MEDS ORDERED: AMMO226L TP (10:22)
[2021-07-04] MEDS ORDERED: LIPITOR80 MG PO (10:22)
[2021-07-04] MEDS ORDERED: ONDA4TAB7 PO (10:22)
[2021-07-04] MEDS ORDERED: ENOX30DI SQ (10:22)
[2021-07-04] MEDS ORDERED: BISA10SU4 RC (10:22)
== END 2021-06-25 15:30 | DRG 4 ==
LOC: ER 12:13 → 1 WEST ICU 13:54
PROVIDERS: ADMIT Internal Medicine; ATTEND Internal Medicine
PROC: 5A1955Z Respiratory Ventilation, Greater than 96 Consecutive Hours (ICD-10-PCS; principal; 2021-04-24)
PROC: 5A09357 Assistance with Respiratory Ventilation, Less than 24 Consecutive Hours, Continuous Positive Airway Pressure (ICD-10-PCS; 2021-04-24)
PROC: XW033E5 Introduction of Remdesivir Anti-infective into Peripheral Vein, Percutaneous Approach, New Technology Group 5 (ICD-10-PCS; 2021-04-26)
PROC: 02H633Z Insertion of Infusion Device into Right Atrium, Percutaneous Approach (ICD-10-PCS; 2021-04-27)
PROC: B548ZZA Ultrasonography of Superior Vena Cava, Guidance (ICD-10-PCS; 2021-04-27)
PROC: 5A1D70Z Performance of Urinary Filtration, Intermittent, Less than 6 Hours Per Day (ICD-10-PCS; 2021-04-28)
PROC: 5A1D70Z Performance of Urinary Filtration, Intermittent, Less than 6 Hours Per Day (ICD-10-PCS; 2021-04-30)
PROC: 5A1D70Z Performance of Urinary Filtration, Intermittent, Less than 6 Hours Per Day (ICD-10-PCS; 2021-05-02)
PROC: 5A1D70Z Performance of Urinary Filtration, Intermittent, Less than 6 Hours Per Day (ICD-10-PCS; 2021-05-04)
PROC: 5A1D70Z Performance of Urinary Filtration, Intermittent, Less than 6 Hours Per Day (ICD-10-PCS; 2021-05-07)
PROC: 02HV33Z Insertion of Infusion Device into Superior Vena Cava, Percutaneous Approach (ICD-10-PCS; 2021-05-11)
PROC: B548ZZA Ultrasonography of Superior Vena Cava, Guidance (ICD-10-PCS; 2021-05-11)
PROC: 30233N1 Transfusion of Nonautologous Red Blood Cells into Peripheral Vein, Percutaneous Approach (ICD-10-PCS; 2021-05-12)
PROC: 5A1D70Z Performance of Urinary Filtration, Intermittent, Less than 6 Hours Per Day (ICD-10-PCS; 2021-05-12)
PROC: 0B110F4 Bypass Trachea to Cutaneous with Tracheostomy Device, Open Approach (ICD-10-PCS; 2021-05-15)
PROC: 5A1D70Z Performance of Urinary Filtration, Intermittent, Less than 6 Hours Per Day (ICD-10-PCS; 2021-05-24)
PROC: 5A1D70Z Performance of Urinary Filtration, Intermittent, Less than 6 Hours Per Day (ICD-10-PCS; 2021-05-26)
PROC: 5A1D70Z Performance of Urinary Filtration, Intermittent, Less than 6 Hours Per Day (ICD-10-PCS; 2021-05-30)
PROC: 5A1D70Z Performance of Urinary Filtration, Intermittent, Less than 6 Hours Per Day (ICD-10-PCS; 2021-05-31)
PROC: 5A1D70Z Performance of Urinary Filtration, Intermittent, Less than 6 Hours Per Day (ICD-10-PCS; 2021-06-01)
PROC: 5A1D70Z Performance of Urinary Filtration, Intermittent, Less than 6 Hours Per Day (ICD-10-PCS; 2021-06-02)
PROC: 02HV33Z Insertion of Infusion Device into Superior Vena Cava, Percutaneous Approach (ICD-10-PCS; 2021-06-04)
PROC: B548ZZA Ultrasonography of Superior Vena Cava, Guidance (ICD-10-PCS; 2021-06-04)
PROC: 5A1D70Z Performance of Urinary Filtration, Intermittent, Less than 6 Hours Per Day (ICD-10-PCS; 2021-06-05)
PROC: 5A1D70Z Performance of Urinary Filtration, Intermittent, Less than 6 Hours Per Day (ICD-10-PCS; 2021-06-07)
PROC: 5A1D70Z Performance of Urinary Filtration, Intermittent, Less than 6 Hours Per Day (ICD-10-PCS; 2021-06-09)
PROC: 5A1D70Z Performance of Urinary Filtration, Intermittent, Less than 6 Hours Per Day (ICD-10-PCS; 2021-06-12)
PROC: 5A1D70Z Performance of Urinary Filtration, Intermittent, Less than 6 Hours Per Day (ICD-10-PCS; 2021-06-13)
PROC: 5A1D70Z Performance of Urinary Filtration, Intermittent, Less than 6 Hours Per Day (ICD-10-PCS; 2021-06-14)
PROC: 02PYX3Z Removal of Infusion Device from Great Vessel, External Approach (ICD-10-PCS; 2021-06-15)
PROC: 02HV33Z Insertion of Infusion Device into Superior Vena Cava, Percutaneous Approach (ICD-10-PCS; 2021-06-15)
PROC: 0JH63XZ Insertion of Tunneled Vascular Access Device into Chest Subcutaneous Tissue and Fascia, Percutaneous Approach (ICD-10-PCS; 2021-06-15)
PROC: B548ZZA Ultrasonography of Superior Vena Cava, Guidance (ICD-10-PCS; 2021-06-15)
PROC: 02HV33Z Insertion of Infusion Device into Superior Vena Cava, Percutaneous Approach (ICD-10-PCS; 2021-06-15)
PROC: B548ZZA Ultrasonography of Superior Vena Cava, Guidance (ICD-10-PCS; 2021-06-15)
PROC: 5A1D70Z Performance of Urinary Filtration, Intermittent, Less than 6 Hours Per Day (ICD-10-PCS; 2021-06-15)
PROC: 5A1D70Z Performance of Urinary Filtration, Intermittent, Less than 6 Hours Per Day (ICD-10-PCS; 2021-06-16)
PROC: 5A1D70Z Performance of Urinary Filtration, Intermittent, Less than 6 Hours Per Day (ICD-10-PCS; 2021-06-18)
PROC: 5A1D70Z Performance of Urinary Filtration, Intermittent, Less than 6 Hours Per Day (ICD-10-PCS; 2021-06-20)
PROC: 5A1D70Z Performance of Urinary Filtration, Intermittent, Less than 6 Hours Per Day (ICD-10-PCS; 2021-06-22)
PROC: 5A1D70Z Performance of Urinary Filtration, Intermittent, Less than 6 Hours Per Day (ICD-10-PCS; 2021-06-25)
DX: A41.89 Other specified sepsis (principal); U07.1 COVID-19; I21.4 Non-ST elevation (NSTEMI) myocardial infarction; E43 Unspecified severe protein-calorie malnutrition; I50.33 Acute on chronic diastolic (congestive) heart failure; J96.01 Acute respiratory failure with hypoxia; N18.6 End stage renal disease; J12.82 Pneumonia due to coronavirus disease 2019; N17.0 Acute kidney failure with tubular necrosis; B49 Unspecified mycosis; D62 Acute posthemorrhagic anemia; E87.1 Hypo-osmolality and hyponatremia; I13.2 Hypertensive heart and chronic kidney disease with heart failure and with stage 5 chronic kidney disease, or end stage renal disease; J44.0 Chronic obstructive pulmonary disease with (acute) lower respiratory infection; K56.609 Unspecified intestinal obstruction, unspecified as to partial versus complete obstruction; K56.7 Ileus, unspecified; Z99.11 Dependence on respirator [ventilator] status; E11.22 Type 2 diabetes mellitus with diabetic chronic kidney disease; E11.649 Type 2 diabetes mellitus with hypoglycemia without coma; E66.01 Morbid (severe) obesity due to excess calories; E78.5 Hyperlipidemia, unspecified; E87.6 Hypokalemia; F12.90 Cannabis use, unspecified, uncomplicated; G47.33 Obstructive sleep apnea (adult) (pediatric); G89.29 Other chronic pain; H10.9 Unspecified conjunctivitis; I16.0 Hypertensive urgency; I25.10 Atherosclerotic heart disease of native coronary artery without angina pectoris; I25.2 Old myocardial infarction; I48.91 Unspecified atrial fibrillation; I49.3 Ventricular premature depolarization; I70.8 Atherosclerosis of other arteries; K21.9 Gastro-esophageal reflux disease without esophagitis; K80.20 Calculus of gallbladder without cholecystitis without obstruction; M10.9 Gout, unspecified; R13.10 Dysphagia, unspecified; Y95 Nosocomial condition; Z66 Do not resuscitate; Z68.36 Body mass index [BMI] 36.0-36.9, adult; Z79.51 Long term (current) use of inhaled steroids; Z79.899 Other long term (current) drug therapy; Z87.891 Personal history of nicotine dependence; Z95.5 Presence of coronary angioplasty implant and graft; Z99.2 Dependence on renal dialysis; M19.90 Unspecified osteoarthritis, unspecified site
CPT/HCPCS: 31500; 36415; 36430; 36556; 36580; 36600; 51702; 71045; 74018; 76770; 76937; 80048; 80053; 80069; 81001; 82040; 82550; 82805; 82962; 83735; 83880; 84100; 84132; 84145; 84478; 84484; 85007; 85025; 85027; 85520; 85610; 86317; 86850; 86900; 86901; 86920; 87040; 87070; 87205; 87340; 87493; 87641; 93005; 94003; 94640; 94760; A4364; A4452; A4930; A7521; C1892; C9113; J0282; J0360; J0610; J0692; J0878; J1100; J1160; J1450; J1630; J1644; J1815; J1940; J2020; J2060; J2185; J2212; J2248; J2250; J2370; J2405; J2704; J3010; J3475; J3480; J3490; J7030; J7050; J7060; J7120; P9016; P9046; U0003; U0005; 97530-GP; 99291-25; G0378

== ENCOUNTER 2021-09-07 22:34 | Inpatient (IN) | payer OTHER ==
[~2021-09-07] VITALS: Ht 195.6 cm; Wt 112.9 kg
[~2021-09-07 22:34] MED LIST changes: +AMLO-187 PO; +AMMO226L TP; +BISA10SU4 RC; +ENOX30DI SQ; +INSU100V6 SQ; +IPRA3AMP29 NEB; +LIPITOR80 MG PO; +ONDA4TAB7 PO; +PANT40VI IV
[2021-09-07] MEDS ORDERED: fentaNYL PF VIAL 100 MCG/2 ML VIAL IV PRN (23:00)
[2021-09-07 23:10] LABS: BASO # 0.1 x10^3/uL (0.0-0.2); BASO % 1 % (0-3); EOS # 0.5 x10^3/uL (0.0-0.7); EOS % 7 % (0-3); HEMATOCRIT 28.5 % (39.0-53.0); HEMOGLOBIN 9.1 g/dL (13.0-17.5); LYMPH # 2.4 x10^3/uL (1.0-4.8); LYMPH % 29 % (24-48); MEAN CORPUSCULAR HEMOGLOBIN 27 pg (25-35); MEAN CORPUSCULAR HGB CONC 32 g/dL (31-37); MEAN CORPUSCULAR VOLUME 84 fL (79-100); MONO # 0.9 x10^3/uL (0.0-1.1); MONO % 11 % (0-9); NEUT # 4.4 x10^3/uL (1.8-7.7); NEUT % 53 % (31-73); PLATELET COUNT 332 x10^3/uL (140-400); WHITE BLOOD COUNT 8.3 x10^3/uL (4.0-11.0)
[2021-09-07 23:26] LABS: PROTHROMBIN TIME PATIENT 13.1 SEC (11.7-14.0)
[2021-09-07 23:27] LABS: CALCIUM 8.4 mg/dL (8.5-10.1); CREATININE 2.2 mg/dL (0.7-1.3); GFR 35.5; POTASSIUM 4.5 mmol/L (3.5-5.1)
[2021-09-07] MEDS ORDERED: ASPIRIN CHEWABLE 81 MG TABLET. PO ONE (23:30)
[2021-09-07 23:33] LABS: ALBUMIN 2.8 g/dL (3.4-5.0); ALBUMIN/GLOBULIN RATIO 0.8 (1.0-1.7); MAGNESIUM 1.9 mg/dL (1.8-2.4); TOTAL BILIRUBIN 0.4 mg/dL (0.2-1.0); TOTAL PROTEIN 6.3 g/dL (6.4-8.2)
--- NOTE | 2021-09-07 23:42 | PHYS DOC ---
Past Medical History Additional Past Medical Histor: POOR HISTORIAN Past Surgical History: Other Additional Past Surgical Histo: unknown Smoking Status: Former Smoker Alcohol Use: None Adult General Chief Complaint Chief Complaint: CHEST PAIN HPI HPI The patient is a 76-year-old male with extensive past medical history including hypertension, hyperlipidemia, coronary artery disease, some degree of heart failure, paroxysmal atrial fibrillation on aspirin only for anticoagulation, insulin-dependent diabetes, chronic respiratory failure on 2 L at all times, end-stage renal disease on hemodialysis through a tunneled dialysis catheter (TTSat and compliant), chronic low back pain. Patient had a 6-week admission to this facility from April to June of 2021; he was intubated for a protracted period and also had to start dialysis. [facility]. Mirza presents for evaluation of transient achy left-sided chest discomfort with radiation to the left neck, all with onset about 2 hours prior to arrival. He called an ambulance himself. He reports associated mild shortness of breath, not much worse than usual. Chest pain had resolved by the time the patient arrived to this facility. Currently patient complains only of chronic low back pain, about the same as usual. He denies associated fevers, nausea or vomiting, upper respiratory congestion/rhinorrhea, cough, sore throat, flank pain, midline back pain, dysuria (patient still makes urine daily), changes in bowel habits. He denies loss of bowel or bladder control, saddle anesthesia, new lower extremity weakness, numbness, tingling, new urinary retention. Patient is alert and pleasantly and appropriately interactive and in no acute distress with appropriate vital signs aside from elevated blood pressure upon initial evaluation here in the emergency department. Review of Systems Review of Systems A 12 point review of systems was completed and was negative except where noted in HPI above. Current Medications Current Medications Current Medications Medications (Trade) Dose Ordered Sig/Jodie Start Time Stop Time Status Last Admin Dose Admin Aspirin (Aspirin Chewable) 324 mg 1X ONCE 09/07/21 23:30 09/07/21 23:31 DC 09/07/21 23:19 324 MG Fentanyl Citrate (Fentanyl 2ml Vial) 25 mcg PRN Q15MIN PRN 09/07/21 23:00 09/08/21 22:59 09/07/21 23:22 25 MCG Allergies Allergies Allergies Coded Allergies Type Severity Reaction Last Updated Verified Penicillins Allergy Intermediate 04/16/21 Yes morphine Allergy Intermediate 04/16/21 Yes Physical Exam Physical Exam 76-year-old male appearing nontoxic and in no acute distress. Head is normocephalic and atraumatic. Neck is supple and nontender. No JVD. Oropharynx is moist. Lungs are clear to auscultation at all stations. There is a normal S1 and S2 without rubs or gallops and capillary refill is appropriate, less than 2 seconds globally. There is a tunneled dialysis catheter in place to the right upper chest. No surrounding erythema, warmth, swelling or tenderness abdomen is soft, nontender and nondistended. There is no pulsatile mass. Skin is warm and dry without cyanosis, clubbing or edema. Psychiatrically, the patient demonstrates appropriate mood and affect and is alert. Evaluation of the extremities reveals BUEs and BLEs neurovascularly intact distally with strength of 45, sensation intact to light touch in all nerve distributions, radial, DP and PT pulses 2+ and equal bilaterally, capillary refill less than 2 seconds, hands and feet warm and well-perfused. No calf tenderness or swelling bilaterally. Homans test is negative bilaterally. Current Patient Data Vital Signs Vital Signs Date Time Temp Pulse Resp B/P (MAP) Pulse Ox O2 Delivery O2 Flow Rate FiO2 09/07/21 23:22 19 99 Room Air Lab Values Laboratory Tests Test 09/07/21 22:50 09/07/21 23:05 White Blood Count 8.3 x10^3/uL (4.0-11.0) Red Blood Count 3.40 x10^6/uL (4.30-5.70) L Hemoglobin 9.1 g/dL (13.0-17.5) L Hematocrit 28.5 % (39.0-53.0) L Mean Corpuscular Volume 84 fL (79-100) Mean Corpuscular Hemoglobin 27 pg (25-35) Mean Corpuscular Hemoglobin Concent 32 g/dL (31-37) Red Cell Distribution Width 17.0 % (11.5-14.5) H Platelet Count 332 x10^3/uL (140-400) Neutrophils (%) (Auto) 53 % (31-73) Lymphocytes (%) (Auto) 29 % (24-48) Monocytes (%) (Auto) 11 % (0-9) H Eosinophils (%) (Auto) 7 % (0-3) H Basophils (%) (Auto) 1 % (0-3) Neutrophils # (Auto) 4.4 x10^3/uL (1.8-7.7) Lymphocytes # (Auto) 2.4 x10^3/uL (1.0-4.8) Monocytes # (Auto) 0.9 x10^3/uL (0.0-1.1) Eosinophils # (Auto) 0.5 x10^3/uL (0.0-0.7) Basophils # (Auto) 0.1 x10^3/uL (0.0-0.2) Prothrombin Time 13.1 SEC (11.7-14.0) Prothrombin Time INR 1.0 (0.8-1.1) Activated Partial Thromboplast Time 33 SEC (24-38) Sodium Level 139 mmol/L (136-145) Potassium Level 4.5 mmol/L (3.5-5.1) Chloride Level 102 mmol/L (98-107) Carbon Dioxide Level 31 mmol/L (21-32) Anion Gap 6 (6-14) Blood Urea Nitrogen 15 mg/dL (8-26) Creatinine 2.2 mg/dL (0.7-1.3) H Estimated GFR (Cockcroft-Gault) 35.5 BUN/Creatinine Ratio 7 (6-20) Glucose Level 147 mg/dL (70-99) H Calcium Level 8.4 mg/dL (8.5-10.1) L Magnesium Level 1.9 mg/dL (1.8-2.4) Total Bilirubin 0.4 mg/dL (0.2-1.0) Aspartate Amino Transferase (AST) 12 U/L (15-37) L Alanine Aminotransferase (ALT) 8 U/L (16-63) L Alkaline Phosphatase 68 U/L (46-116) Troponin I High Sensitivity 17 ng/L (4-75) AA-Ohx-I-Type Natriuretic Peptide 6801 pg/mL (0-449) H Total Protein 6.3 g/dL (6.4-8.2) L Albumin 2.8 g/dL (3.4-5.0) L Albumin/Globulin Ratio 0.8 (1.0-1.7) L SARS-CoV-2 Antigen (Rapid) Negative (NEGATIVE) Laboratory Tests 09/07/21 22:50 Laboratory Tests 09/07/21 22:50 EKG EKG Sinus rhythm, left bundle branch block, no acute ST elevation or depression, occasional premature ventricular contractions, EP interpretation. Nonischemic tracing. Radiology/Procedures Radiology/Procedures [] Course & Med Decision Making Course & Med Decision Making Labs unremarkable aside from markedly elevated BNP with evidence of mild pulmonary edema on chest x-ray. Volume overload will likely be addressed best by the patient's scheduled dialysis session in the morning and he is not more hypoxic than usual so we will hold off on any Lasix at this moment. Will bring in for ACS rule out, observation and further care. He has remained chest pain- free on serial reassessments and is resting comfortably. Nephrology consulted for ESRD/dialysis needs in the a.m. Graciously accepted for admission by hospitalist Dr. Khanna. Leandro Disclaimer Leandro Disclaimer This electronic medical record was generated, in whole or in part, using a voice recognition dictation system. Departure Departure Impression: Primary Impression: Other chest pain Referrals: RACHID GARIBAY MD (PCP) CRUZITO CANNON MD Sep 07, 2021 23:42
--- NOTE | 2021-09-08 00:03 | RAD ---
EXAM: XR CHEST 1V 09/07/2021 11:03 PM CLINICAL INDICATION: Chest pain COMPARISON: Chest radiograph 06/15/2021 TECHNIQUE: AP upright view the chest FINDINGS: Tracheostomy tube, nasogastric tube, and left internal jugular central venous catheter has been removed There is a right IJ dual-lumen dialysis catheter with tip over the superior cavoatrial j unction. The heart is mildly enlarged. There is mild basilar predominant opacities, decreased from 07/2021. Decreased, small left pleural effusion. No right pleural effusion. No pneumothorax. IMPRESSION: 1. Interval removal of tracheostomy tube, left central venous catheter, and nasogastric tube.. 2. Decreased, mild pulmonary edema. Small left pleural effusion. Electronically signed by: Grecia Mcallister MD (09/08/2021 12:01 AM) JACQUELINE
[2021-09-08] MEDS ORDERED: ONDANSETRON PF 4 MG/2 ML VIAL. IVP PRN ×2 (00:15→09:45)
[2021-09-08] MEDS ORDERED: fentaNYL PF VIAL 100 MCG/2 ML VIAL IVP PRN (00:15)
--- NOTE | 2021-09-08 03:50 | EKG ---
[facility] [address] [place] [address] Test Date: 2021-09-07 Test Time: 22:54:07 Pat Name: NILAM LAN Department: Room: ED HOLD 2 Gender: M Concierge: : 1945 Requested By: CRUZITO CANNON Order Number: [id number] Reading MD: Wilver Sanders MD Measurements Intervals [place] Rate: 63 P: 62 CO: 178 QRS: 21 QRSD: 114 T: 55 QT: 434 QTc: 447 Interpretive Statements SINUS RHYTHM PVCS NON-SPECIFIC ST/T CHANGES Electronically Signed On 09-09-2021 20:41:13 DEPUTY CONTROLLER by Wilver Sanders MD
--- NOTE | 2021-09-08 03:50 | EKG ---
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
--- NOTE | 2021-09-08 09:33 | PDOC1 ---
History and Physical Date of Service: DOS: DATE: 09/08/21 TIME: 09:33 Chief Complaint: Chief Complain: chest pain History of Present Illness: HPI: HPI The patient is a 76-year-old male. Patient had a 6-week admission to this facility from April to June of 2021; he was intubated for a protracted period and also had to start dialysis. [facility] the [facility]. Mirza presents for evaluation of transient achy left-sided chest discomfort with radiation to the left neck, all with onset about 2 hours prior to arrival. He called an ambulance himself. He reports associated mild shortness of breath, not much worse than usual. Chest pain had resolved by the time the patient arrived to this facility. Currently patient complains only of chronic low back pain, about the same as usual. He denies associated fevers, nausea or vomiting, upper respiratory congestion/rhinorrhea, cough, sore throat, flank pain, midline back pain, dysuria (patient still makes urine daily), changes in bowel habits. He denies loss of bowel or bladder control, saddle anesthesia, new lower extremity weakness, numbness, tingling, new urinary retention. Patient is alert and pleasantly and appropriately interactive and in no acute distress with appropriate vital signs aside from elevated blood pressure upon initial evaluation here in the emergency department Past Medical/Surgical History: PMH/PSH: hypertension, hyperlipidemia, coronary artery disease, some degree of heart failure, paroxysmal atrial fibrillation on aspirin only for anticoagulation, insulin-dependent diabetes, chronic respiratory failure on 2 L at all times, end-stage renal disease on hemodialysis through a tunneled dialysis catheter (TTSat and compliant), chronic low back pain Allergies: Allergies: Coded Allergies: Penicillins (Verified Allergy, Intermediate, 04/16/21) morphine (Verified Allergy, Intermediate, 04/16/21) itches real bad all over Family History: Family History: HTN Social History: Social History: former tobacco Current Medications: Current Medications Current Medications Aspirin (Aspirin Chewable) 324 mg 1X ONCE PO Last administered on 09/07/21at 23:19; Start 09/07/21 at 23:30; Stop 09/07/21 at 23:31; Status DC Fentanyl Citrate (Fentanyl 2ml Vial) 25 mcg PRN Q15MIN PRN IV PAIN GREATER THAN 3/10 Last administered on 09/07/21at 23:22; Start 09/07/21 at 23:00; Stop 09/08/21 at 22:59 Ondansetron HCl (Zofran) 4 mg PRN Q8HRS PRN IVP NAUSEA/VOMITING 1ST CHOICE; Start 09/08/21 at 00:15; Stop 09/09/21 at 00:14 Fentanyl Citrate (Fentanyl 2ml Vial) 25 mcg PRN Q1HR PRN IVP SEVERE PAIN 7-10; Start 09/08/21 at 00:15; Stop 09/09/21 at 00:14 Active Scripts Active Polyethylene Glycol 3350 17 Gm Powd.pack 17 Gm PO DAILY 14 Days Dok (Docusate Sodium) 100 Mg Capsule 100 Mg PO PRN DAILY PRN 30 Days Acetaminophen 325 Mg Tablet 650 Mg PO PRN Q4HRS PRN 14 Days Aspirin Ec (Aspirin) 81 Mg Tablet.dr 81 Mg PO DAILYWBKFT 30 Days Reported Zofran (Ondansetron Hcl) 4 Mg Tablet 1 Tab PO Q6HRS Duoneb 0.5-3(2.5) Mg/3 Ml (Albuterol/Ipratropium) 3 Ml Ampul.neb 3 Ml NEB Q6HRS PRN Bisacodyl 10 Mg Supp.rect 10 Mg RC PRN DAILY PRN Humalog (Insulin Lispro) 100 Unit/1 Ml Vial 100 Unit SQ Q6HRS 8 units every 6 hours , plus SSI every 6 hours Protonix Iv (Pantoprazole Sodium) 40 Mg Vial 40 Mg IV DAILY Lovenox (Enoxaparin Sodium) 30 Mg/0.3 Ml Disp.syrin 30 Mg SQ DAILY Lipitor (Atorvastatin Calcium) 80 Mg Tablet 80 Mg PO HS Lac-Hydrin Five (Ammonium Lactate) 226 Gm Lotion 1 Gary TP BID 30 Days Amlodipine Besylate 10 Mg Tablet 10 Mg PO DAILY Coreg (Carvedilol) 12.5 Mg Tablet 37.5 Mg PO BIDWMEALS Gabapentin (Gabapentin) 100 Mg Capsule 200 Mg PO BID Montelukast Sodium Tablet (Montelukast Sodium) 10 Mg Tablet 10 Mg PO HS Advair 100-50 Diskus (Fluticasone/Salmeterol) 1 Each Disk.w.dev 1 Puff IH BID ROS: Review of Systems Review of System REVIEW OF SYSTEMS: GENERAL: Denies weakness SKIN: No bruising, hair changes or rashes. EYES: No blurred, double or loss of vision. NOSE AND THROAT: No history of nosebleeds, hoarseness or sore throat. HEART: No history of palpitations, chest pain or shortness of breath on exertion. LUNGS: Denies cough, hemoptysis, wheezing or shortness of breath. GASTROINTESTINAL: Denies changes in appetite, nausea, vomiting, diarrhea or constipation. GENITOURINARY: No history of frequency, urgency, hesitancy or nocturia. NEUROLOGIC: Denies history of numbness, tingling, or tremor. PSYCHIATRIC: No history of panic, anxiety or depression. ENDOCRINE: No history of heat or cold intolerance, polyuria or polydipsia. EXTREMITIES: Denies joint pain, pain on walking or stiffness. Physical Exam: Vital Signs: Vital Signs Date Time Temp Pulse Resp B/P (MAP) Pulse Ox O2 Delivery O2 Flow Rate FiO2 09/08/21 07:42 65 18 184/74 (110) 95 Room Air 09/08/21 06:42 2.0 09/07/21 22:34 97.9 97.9 Physcial Exam: GEN: No apparent distress. Alert and oriented HEENT: Normal cephalic, atraumatic, external auditory canals are patent EYES: Extraocular muscles are intact, pupil are equally round and reactive to light and accommodation MUSCULOSKELETAL: Well developed , well nourished, good range of motion ENDOCRINE: No thyromegaly was palpated LYMPHATICS: No cervical chain or axillary nodes were noted HEMATOPOIETIC: No bruising NECK: Supple, no JVD, no thyromegaly was noted LUNGS: Clear to auscultation in all lung garcias without rhonchi or wheezing HEART: RRR, S!, S2 present. Peripheral pulses intact, no obvious murmurs noted ABDOMEN: Soft, nontender. Positive bowel sounds, no organomegaly, normal bowel sounds EXTREMITIES: Without clubbing, cyanosis, or edema. Pedal pulses intact. Negative Homans sign NEUROLOGIC: Normal speech and tone. A&O x 3, moves all extremities, no obvious focal deficits PSYCHIATRIC: Normal affect, normal mood. Stable SKIN: No ulcerations or rashes, good skin turgor, no jaundice VASCULAR: Good capillary refill, neurovascular bundle appears to be intact Labs: Labs: Laboratory Tests Test 09/07/21 22:50 09/07/21 23:05 09/08/21 01:45 09/08/21 04:50 White Blood Count 8.3 x10^3/uL (4.0-11.0) Red Blood Count 3.40 x10^6/uL (4.30-5.70) Hemoglobin 9.1 g/dL (13.0-17.5) Hematocrit 28.5 % (39.0-53.0) Mean Corpuscular Volume 84 fL (79-100) Mean Corpuscular Hemoglobin 27 pg (25-35) Mean Corpuscular Hemoglobin Concent 32 g/dL (31-37) Red Cell Distribution Width 17.0 % (11.5-14.5) Platelet Count 332 x10^3/uL (140-400) Neutrophils (%) (Auto) 53 % (31-73) Lymphocytes (%) (Auto) 29 % (24-48) Monocytes (%) (Auto) 11 % (0-9) Eosinophils (%) (Auto) 7 % (0-3) Basophils (%) (Auto) 1 % (0-3) Neutrophils # (Auto) 4.4 x10^3/uL (1.8-7.7) Lymphocytes # (Auto) 2.4 x10^3/uL (1.0-4.8) Monocytes # (Auto) 0.9 x10^3/uL (0.0-1.1) Eosinophils # (Auto) 0.5 x10^3/uL (0.0-0.7) Basophils # (Auto) 0.1 x10^3/uL (0.0-0.2) Prothrombin Time 13.1 SEC (11.7-14.0) Prothromb Time International Ratio 1.0 (0.8-1.1) Activated Partial Thromboplast Time 33 SEC (24-38) Sodium Level 139 mmol/L (136-145) Potassium Level 4.5 mmol/L (3.5-5.1) Chloride Level 102 mmol/L (98-107) Carbon Dioxide Level 31 mmol/L (21-32) Anion Gap 6 (6-14) Blood Urea Nitrogen 15 mg/dL (8-26) Creatinine 2.2 mg/dL (0.7-1.3) Estimated GFR (Cockcroft-Gault) 35.5 BUN/Creatinine Ratio 7 (6-20) Glucose Level 147 mg/dL (70-99) Calcium Level 8.4 mg/dL (8.5-10.1) Magnesium Level 1.9 mg/dL (1.8-2.4) Total Bilirubin 0.4 mg/dL (0.2-1.0) Aspartate Amino Transf (AST/SGOT) 12 U/L (15-37) Alanine Aminotransferase (ALT/SGPT) 8 U/L (16-63) Alkaline Phosphatase 68 U/L (46-116) Troponin I High Sensitivity 17 ng/L (4-75) 18 ng/L (4-75) 18 ng/L (4-75) QB-Wkb-V-Type Natriuretic Peptide 6801 pg/mL (0-449) Total Protein 6.3 g/dL (6.4-8.2) Albumin 2.8 g/dL (3.4-5.0) Albumin/Globulin Ratio 0.8 (1.0-1.7) SARS-CoV-2 Antigen (Rapid) Negative (NEGATIVE) Test 09/08/21 05:56 Troponin I High Sensitivity 19 ng/L (4-75) Laboratory Tests Test 09/07/21 22:50 09/07/21 23:05 09/08/21 01:45 09/08/21 04:50 White Blood Count 8.3 x10^3/uL (4.0-11.0) Red Blood Count 3.40 x10^6/uL (4.30-5.70) Hemoglobin 9.1 g/dL (13.0-17.5) Hematocrit 28.5 % (39.0-53.0) Mean Corpuscular Volume 84 fL (79-100) Mean Corpuscular Hemoglobin 27 pg (25-35) Mean Corpuscular Hemoglobin Concent 32 g/dL (31-37) Red Cell Distribution Width 17.0 % (11.5-14.5) Platelet Count 332 x10^3/uL (140-400) Neutrophils (%) (Auto) 53 % (31-73) Lymphocytes (%) (Auto) 29 % (24-48) Monocytes (%) (Auto) 11 % (0-9) Eosinophils (%) (Auto) 7 % (0-3) Basophils (%) (Auto) 1 % (0-3) Neutrophils # (Auto) 4.4 x10^3/uL (1.8-7.7) Lymphocytes # (Auto) 2.4 x10^3/uL (1.0-4.8) Monocytes # (Auto) 0.9 x10^3/uL (0.0-1.1) Eosinophils # (Auto) 0.5 x10^3/uL (0.0-0.7) Basophils # (Auto) 0.1 x10^3/uL (0.0-0.2) Prothrombin Time 13.1 SEC (11.7-14.0) Prothromb Time International Ratio 1.0 (0.8-1.1) Activated Partial Thromboplast Time 33 SEC (24-38) Sodium Level 139 mmol/L (136-145) Potassium Level 4.5 mmol/L (3.5-5.1) Chloride Level 102 mmol/L (98-107) Carbon Dioxide Level 31 mmol/L (21-32) Anion Gap 6 (6-14) Blood Urea Nitrogen 15 mg/dL (8-26) Creatinine 2.2 mg/dL (0.7-1.3) Estimated GFR (Cockcroft-Gault) 35.5 BUN/Creatinine Ratio 7 (6-20) Glucose Level 147 mg/dL (70-99) Calcium Level 8.4 mg/dL (8.5-10.1) Magnesium Level 1.9 mg/dL (1.8-2.4) Total Bilirubin 0.4 mg/dL (0.2-1.0) Aspartate Amino Transf (AST/SGOT) 12 U/L (15-37) Alanine Aminotransferase (ALT/SGPT) 8 U/L (16-63) Alkaline Phosphatase 68 U/L (46-116) Troponin I High Sensitivity 17 ng/L (4-75) 18 ng/L (4-75) 18 ng/L (4-75) NX-Sqv-N-Type Natriuretic Peptide 6801 pg/mL (0-449) Total Protein 6.3 g/dL (6.4-8.2) Albumin 2.8 g/dL (3.4-5.0) Albumin/Globulin Ratio 0.8 (1.0-1.7) SARS-CoV-2 Antigen (Rapid) Negative (NEGATIVE) Test 09/08/21 05:56 Troponin I High Sensitivity 19 ng/L (4-75) Assessment/Plan Assessment/Plan Chest pain, ESRD -Admit to hospital -Nephro consult to resume dialysis -Cardiology consult -Trend troponins -Can maybe take extra fluid off with next dialysis session? -Home meds resumed as indicated Justifications for Admission Other Justification ILDA BRIAN JASSO MD Sep 08, 2021 09:33
[2021-09-08] MEDS ORDERED: ACETAMINOPHEN 325 MG TABLET. PO PRN (09:45)
[2021-09-08] MEDS ORDERED: oxyCODONE IR 5 MG TABLET PO PRN (09:45)
[2021-09-08] MEDS ORDERED: CALCIUM CARBONATE 500 MG TAB.CHEW PO PRN (09:45)
[2021-09-08] MEDS ORDERED: ELECTROLYTE (NON-ICU) PROTOCOL. MC PRN (09:45)
[2021-09-08] MEDS ORDERED: ZOLPIDEM 5 MG TABLET. PO PRN (09:45)
[2021-09-08] MEDS: ASPIRIN ENTERIC COATED 81 MG TABLET.DR. PO SCH (10:38)
[2021-09-08] MEDS: GABAPENTIN 100 MG CAPSULE. PO SCH ×2 (10:40→20:32)
[2021-09-08] MEDS: CARVEDILOL 12.5 MG TABLET. PO SCH ×2 (10:40→20:33)
[2021-09-08] MEDS: POLYETHYLENE GLYCOL 3350 17 GM PACKET. PO SCH (10:41)
[2021-09-08] MEDS: ALBUTEROL SULFATE 2.5 MG/3 ML NEBU. NEB SCH ×4 (11:26→20:00)
[2021-09-08] MEDS: HEPARIN for SUB-Q USE 5,000 UNIT/ML VIAL. SQ SCH ×2 (14:23→21:48)
--- NOTE | 2021-09-08 18:08 | PDOC2 ---
CONSULT Date of Consult Date of Consult DATE: 09/08/21 TIME: 18:02 Reason for Consult Reason for Consult: Increasing shortness of breath. Elevated BNP. Referring Physician Referring Physician: Dr. Tristan Identification/Chief Complaint Chief Complaint Shortness of breath, chest pain Source Source: Chart review, Patient History of Present Illness Reason for Visit: The patient is a 76-year-old male who lives at a [facility] reported episodes of shortness of breath and some left-sided chest discomfort. He was transported to the emergency room by which time his chest discomfort had largely resolved. Initial blood testing showed a troponin of 17, BNP of 03/13/2001, pot assium of 4.5 and a creatinine of 2.2. His EKG showed a sinus rhythm with no acute ischemic changes. Chest x-ray showed mild but improved pulmonary edema and a small left pleural effusion. Patient had been hospitalized and intubated earlier this year at [facility]. An echocardiogram on 04/17/2021 showed a normal ejection fraction at 55 to 60%, moderate left ventricular hypertrophy and mild valvular aortic stenosis with a mean pressure gradient of 19 mmHg as well as mild mitral regurgitation. Patient at this time is feeling better. He was placed on hemodialysis during his hospitalization. His chest pain has resolved. Past Medical History Cardiovascular: CAD, CHF, HTN, Hyperlipidemia, Other Pulmonary: Asthma, COPD, Previously Intubated, Other Heme/Onc: Anemia NOS Hepatobiliary: No pertinent hx Musculoskeletal: Other Rheumatologic: Gout Renal/: Chronic renal insuff, Other Endocrine: Diabetes Past Surgical History Past Surgical History: Other (Hemodialysis access.) Family History Family History: Family History Unknown Social History Quit ALCOHOL: rare Drugs: Marijuana Lives: with Family Current Medications Current Medications Current Medications Aspirin (Aspirin Chewable) 324 mg 1X ONCE PO Last administered on 09/07/21at 23:19; Start 09/07/21 at 23:30; Stop 09/07/21 at 23:31; Status DC Fentanyl Citrate (Fentanyl 2ml Vial) 25 mcg PRN Q15MIN PRN IV PAIN GREATER THAN 3/10 Last administered on 09/07/21at 23:22; Start 09/07/21 at 23:00; Stop 09/08/21 at 22:59 Ondansetron HCl (Zofran) 4 mg PRN Q8HRS PRN IVP NAUSEA/VOMITING 1ST CHOICE; Start 09/08/21 at 00:15; Stop 09/09/21 at 00:14 Fentanyl Citrate (Fentanyl 2ml Vial) 25 mcg PRN Q1HR PRN IVP SEVERE PAIN 7-10; Start 09/08/21 at 00:15; Stop 09/09/21 at 00:14 Amlodipine Besylate (Norvasc) 10 mg DAILY PO Last administered on 09/08/21at 10:39; Start 09/08/21 at 10:30 Aspirin (Ecotrin) 81 mg DAILYWBKFT PO Last administered on 09/08/21at 10:38; Start 09/08/21 at 10:30 Carvedilol (Coreg) 37.5 mg BIDWMEALS PO Last administered on 09/08/21at 10:40; Start 09/08/21 at 10:30 Gabapentin (Neurontin) 200 mg BID PO Last administered on 09/08/21at 10:40; Start 09/08/21 at 10:30 Montelukast Sodium (Singulair) 10 mg HS PO ; Start 09/08/21 at 21:00 Polyethylene Glycol (miraLAX PACKET) 17 gm DAILY PO Last administered on 09/08/21at 10:41; Start 09/08/21 at 10:30 Atorvastatin Calcium (Lipitor) 80 mg HS PO ; Start 09/08/21 at 21:00 Non-Formulary Medication (Fluticasone/ Salmeterol (Advair 100-50 Diskus)) 1 puff BID IH ; Start 09/08/21 at 21:00; Status UNV Ondansetron HCl (Zofran) 4 mg PRN Q6HRS PRN IVP NAUSEA/VOMITING; Start 09/08/21 at 09:45 Calcium Carbonate/ Glycine (Tums) 500 mg PRN Q3HRS PRN PO UPSET STOMACH; Start 09/08/21 at 09:45 Zolpidem Tartrate (Ambien) 5 mg PRN QHS PRN PO INSOMNIA, MAY REPEAT IN 1HR; Start 09/08/21 at 09:45 Info (Non-Icu Electrolyte Protocol) 1 ea PRN DAILY PRN MC SEE COMMENTS; Start 09/08/21 at 09:45 Oxycodone HCl (Roxicodone) 5 mg PRN Q4HRS PRN PO MILD PAIN, 1ST CHOICE; Start 09/08/21 at 09:45 Oxycodone HCl (Roxicodone) 10 mg PRN Q4HRS PRN PO MODERATE PAIN, SEVERE PAIN; Start 09/08/21 at 09:45 Acetaminophen (Tylenol) 650 mg PRN Q6HRS PRN PO Headaches, Temp > 101.5F; Start 09/08/21 at 09:45 Heparin Sodium (Porcine) (Heparin Sodium) 5,000 unit Q8HRS SQ Last administered on 09/08/21at 14:23; Start 09/08/21 at 14:00 Budesonide (Pulmicort) 0.5 mg RTBID NEB ; Start 09/08/21 at 20:00 Albuterol Sulfate (Ventolin Neb Soln) 2.5 mg RTQID NEB Last administered on 09/08/21at 16:23; Start 09/08/21 at 12:00 Active Scripts Active Polyethylene Glycol 3350 17 Gm Powd.pack 17 Gm PO DAILY 14 Days Dok (Docusate Sodium) 100 Mg Capsule 100 Mg PO PRN DAILY PRN 30 Days Acetaminophen 325 Mg Tablet 650 Mg PO PRN Q4HRS PRN 14 Days Aspirin Ec (Aspirin) 81 Mg Tablet.dr 81 Mg PO DAILYWBKFT 30 Days Reported Zofran (Ondansetron Hcl) 4 Mg Tablet 1 Tab PO Q6HRS Duoneb 0.5-3(2.5) Mg/3 Ml (Albuterol/Ipratropium) 3 Ml Ampul.neb 3 Ml NEB Q6HRS PRN Bisacodyl 10 Mg Supp.rect 10 Mg RC PRN DAILY PRN Humalog (Insulin Lispro) 100 Unit/1 Ml Vial 100 Unit SQ Q6HRS 8 units every 6 hours , plus SSI every 6 hours Protonix Iv (Pantoprazole Sodium) 40 Mg Vial 40 Mg IV DAILY Lovenox (Enoxaparin Sodium) 30 Mg/0.3 Ml Disp.syrin 30 Mg SQ DAILY Lipitor (Atorvastatin Calcium) 80 Mg Tablet 80 Mg PO HS Lac-Hydrin Five (Ammonium Lactate) 226 Gm Lotion 1 Gary TP BID 30 Days Amlodipine Besylate 10 Mg Tablet 10 Mg PO DAILY Coreg (Carvedilol) 12.5 Mg Tablet 37.5 Mg PO BIDWMEALS Gabapentin (Gabapentin) 100 Mg Capsule 200 Mg PO BID Montelukast Sodium Tablet (Montelukast Sodium) 10 Mg Tablet 10 Mg PO HS Advair 100-50 Diskus (Fluticasone/Salmeterol) 1 Each Disk.w.dev 1 Puff IH BID Allergies Allergies: Coded Allergies: Penicillins (Verified Allergy, Intermediate, 04/16/21) morphine (Verified Allergy, Intermediate, 04/16/21) itches real bad all over ROS General: YES: Fatigue Respiratory: YES: Shortness of breath Cardiovascular: yes Chest Pain Physical Exam General: mild distress Lungs: Other (Mildly decreased breath sounds) Heart: Regular rate Abdomen: Normal bowel sounds Vitals VITALS Vital Signs Date Time Temp Pulse Resp B/P (MAP) Pulse Ox O2 Delivery O2 Flow Rate FiO2 09/08/21 16:23 100 Nasal Cannula 2.0 09/08/21 12:42 54 19 141/64 (89) 09/07/21 22:34 97.9 97.9 Labs Labs Laboratory Tests Test 09/07/21 22:50 09/07/21 23:05 09/08/21 01:45 09/08/21 04:50 White Blood Count 8.3 x10^3/uL (4.0-11.0) Red Blood Count 3.40 x10^6/uL (4.30-5.70) Hemoglobin 9.1 g/dL (13.0-17.5) Hematocrit 28.5 % (39.0-53.0) Mean Corpuscular Volume 84 fL (79-100) Mean Corpuscular Hemoglobin 27 pg (25-35) Mean Corpuscular Hemoglobin Concent 32 g/dL (31-37) Red Cell Distribution Width 17.0 % (11.5-14.5) Platelet Count 332 x10^3/uL (140-400) Neutrophils (%) (Auto) 53 % (31-73) Lymphocytes (%) (Auto) 29 % (24-48) Monocytes (%) (Auto) 11 % (0-9) Eosinophils (%) (Auto) 7 % (0-3) Basophils (%) (Auto) 1 % (0-3) Neutrophils # (Auto) 4.4 x10^3/uL (1.8-7.7) Lymphocytes # (Auto) 2.4 x10^3/uL (1.0-4.8) Monocytes # (Auto) 0.9 x10^3/uL (0.0-1.1) Eosinophils # (Auto) 0.5 x10^3/uL (0.0-0.7) Basophils # (Auto) 0.1 x10^3/uL (0.0-0.2) Prothrombin Time 13.1 SEC (11.7-14.0) Prothromb Time International Ratio 1.0 (0.8-1.1) Activated Partial Thromboplast Time 33 SEC (24-38) Sodium Level 139 mmol/L (136-145) Potassium Level 4.5 mmol/L (3.5-5.1) Chloride Level 102 mmol/L (98-107) Carbon Dioxide Level 31 mmol/L (21-32) Anion Gap 6 (6-14) Blood Urea Nitrogen 15 mg/dL (8-26) Creatinine 2.2 mg/dL (0.7-1.3) Estimated GFR (Cockcroft-Gault) 35.5 BUN/Creatinine Ratio 7 (6-20) Glucose Level 147 mg/dL (70-99) Calcium Level 8.4 mg/dL (8.5-10.1) Magnesium Level 1.9 mg/dL (1.8-2.4) Total Bilirubin 0.4 mg/dL (0.2-1.0) Aspartate Amino Transf (AST/SGOT) 12 U/L (15-37) Alanine Aminotransferase (ALT/SGPT) 8 U/L (16-63) Alkaline Phosphatase 68 U/L (46-116) Troponin I High Sensitivity 17 ng/L (4-75) 18 ng/L (4-75) 18 ng/L (4-75) EP-Sxb-Z-Type Natriuretic Peptide 6801 pg/mL (0-449) Total Protein 6.3 g/dL (6.4-8.2) Albumin 2.8 g/dL (3.4-5.0) Albumin/Globulin Ratio 0.8 (1.0-1.7) SARS-CoV-2 RNA (PIEDAD) Negative (Negative) SARS-CoV-2 Antigen (Rapid) Negative (NEGATIVE) Test 09/08/21 05:56 Troponin I High Sensitivity 19 ng/L (4-75) Laboratory Tests Test 09/07/21 22:50 09/07/21 23:05 09/08/21 01:45 09/08/21 04:50 White Blood Count 8.3 x10^3/uL (4.0-11.0) Red Blood Count 3.40 x10^6/uL (4.30-5.70) Hemoglobin 9.1 g/dL (13.0-17.5) Hematocrit 28.5 % (39.0-53.0) Mean Corpuscular Volume 84 fL (79-100) Mean Corpuscular Hemoglobin 27 pg (25-35) Mean Corpuscular Hemoglobin Concent 32 g/dL (31-37) Red Cell Distribution Width 17.0 % (11.5-14.5) Platelet Count 332 x10^3/uL (140-400) Neutrophils (%) (Auto) 53 % (31-73) Lymphocytes (%) (Auto) 29 % (24-48) Monocytes (%) (Auto) 11 % (0-9) Eosinophils (%) (Auto) 7 % (0-3) Basophils (%) (Auto) 1 % (0-3) Neutrophils # (Auto) 4.4 x10^3/uL (1.8-7.7) Lymphocytes # (Auto) 2.4 x10^3/uL (1.0-4.8) Monocytes # (Auto) 0.9 x10^3/uL (0.0-1.1) Eosinophils # (Auto) 0.5 x10^3/uL (0.0-0.7) Basophils # (Auto) 0.1 x10^3/uL (0.0-0.2) Prothrombin Time 13.1 SEC (11.7-14.0) Prothromb Time International Ratio 1.0 (0.8-1.1) Activated Partial Thromboplast Time 33 SEC (24-38) Sodium Level 139 mmol/L (136-145) Potassium Level 4.5 mmol/L (3.5-5.1) Chloride Level 102 mmol/L (98-107) Carbon Dioxide Level 31 mmol/L (21-32) Anion Gap 6 (6-14) Blood Urea Nitrogen 15 mg/dL (8-26) Creatinine 2.2 mg/dL (0.7-1.3) Estimated GFR (Cockcroft-Gault) 35.5 BUN/Creatinine Ratio 7 (6-20) Glucose Level 147 mg/dL (70-99) Calcium Level 8.4 mg/dL (8.5-10.1) Magnesium Level 1.9 mg/dL (1.8-2.4) Total Bilirubin 0.4 mg/dL (0.2-1.0) Aspartate Amino Transf (AST/SGOT) 12 U/L (15-37) Alanine Aminotransferase (ALT/SGPT) 8 U/L (16-63) Alkaline Phosphatase 68 U/L (46-116) Troponin I High Sensitivity 17 ng/L (4-75) 18 ng/L (4-75) 18 ng/L (4-75) IA-Oyp-K-Type Natriuretic Peptide 6801 pg/mL (0-449) Total Protein 6.3 g/dL (6.4-8.2) Albumin 2.8 g/dL (3.4-5.0) Albumin/Globulin Ratio 0.8 (1.0-1.7) SARS-CoV-2 RNA (PIEDAD) Negative (Negative) SARS-CoV-2 Antigen (Rapid) Negative (NEGATIVE) Test 09/08/21 05:56 Troponin I High Sensitivity 19 ng/L (4-75) Images Images Chest x-ray and recent echo as above. Assessment/Plan Assessment/Plan 1. Shortness of breath. Patient shortness of breath is reportedly relatively mild. He is being evaluated by the renal service to determine if he requires hemodialysis today or tomorrow. At this time we will continue on present medications and monitor. 2. Chest pain. Pain as noted above was mild. It resolved before being evaluated in the emergency room. His EKG shows no acute ischemic changes. Initial troponin is normal. We will continue present medications and rule out. 3. End-stage renal disease. Hemodialysis as per the renal service. 4. History of paroxysmal atrial fibrillation. Patient remains in a sinus rhythm. 5. Hypertension. Under reasonable control. 6. Hyperlipidemia. Continue medications. Check morning lab. 7. Diabetes mellitus. VIDAL RODRIGUEZ MD Sep 08, 2021 18:08
[2021-09-08 19:00] VITALS: BP 106/63
[2021-09-08] MEDS: BUDESONIDE 0.5 MG/2 ML NEBU. NEB SCH (20:00)
[2021-09-08] MEDS: MONTELUKAST SODIUM 10 MG TABLET. PO SCH (20:32)
[2021-09-08] MEDS: ATORVASTATIN CALCIUM 40 MG TABLET. PO SCH (20:33)
[2021-09-08] MEDS ORDERED: NON FORMULARY ITEM (Fluticasone/Salmeterol (Advair 100-50 Diskus) 1 PUFF) IH SCH (21:00)
[2021-09-08 23:00] VITALS: BP 94/57
[2021-09-09] MEDS ORDERED: C.DIFF MED SCREEN BY RX. MC ONE (01:15)
[2021-09-09 03:15] VITALS: BP 82/45
[2021-09-09] MEDS ORDERED: PANT20TA2 PO (04:15)
[2021-09-09] MEDS ORDERED: DIPH25TA24 PO (04:15)
[2021-09-09] MEDS ORDERED: INSU100V6 SQ ×2 (04:15)
[2021-09-09] MEDS ORDERED: DICL100G24 TP (04:15)
[2021-09-09] MEDS ORDERED: FOLI0.8T32 PO (04:15)
[2021-09-09] MEDS ORDERED: GABA100C6 PO (04:15)
[2021-09-09] MEDS ORDERED: PEG15DRO6 EACHEYE (04:15)
[2021-09-09] MEDS ORDERED: AMIO200T53 PO (04:15)
[2021-09-09] MEDS ORDERED: INSU100C SQ (04:15)
[2021-09-09] MEDS ORDERED: MONT10TA49 PO (04:15)
[2021-09-09] MEDS ORDERED: DULO30CA2 PO (04:15)
[2021-09-09] MEDS ORDERED: FERR325T72 PO (04:15)
[2021-09-09] MEDS ORDERED: CARV25TA2 PO (04:15)
[2021-09-09] MEDS ORDERED: HYDR-2761 PO (04:15)
[2021-09-09] MEDS ORDERED: MAGN400T48 PO (04:15)
[2021-09-09 04:26] LABS: BASO # 0.1 x10^3/uL (0.0-0.2); BASO % 1 % (0-3); EOS # 0.4 x10^3/uL (0.0-0.7); EOS % 7 % (0-3); HEMOGLOBIN 8.8 g/dL (13.0-17.5); LYMPH # 1.8 x10^3/uL (1.0-4.8); LYMPH % 27 % (24-48); MEAN CORPUSCULAR HEMOGLOBIN 27 pg (25-35); MEAN CORPUSCULAR HGB CONC 31 g/dL (31-37); MEAN CORPUSCULAR VOLUME 85 fL (79-100); MONO # 0.7 x10^3/uL (0.0-1.1); MONO % 11 % (0-9); NEUT # 3.5 x10^3/uL (1.8-7.7); NEUT % 54 % (31-73); PLATELET COUNT 314 x10^3/uL (140-400); RED BLOOD COUNT 3.32 x10^6/uL (4.30-5.70); RED CELL DISTRIBUTION WIDTH 17.4 % (11.5-14.5); WHITE BLOOD COUNT 6.5 x10^3/uL (4.0-11.0)
[2021-09-09 05:02] LABS: ALBUMIN 2.5 g/dL (3.4-5.0); ALBUMIN/GLOBULIN RATIO 0.7 (1.0-1.7); CALCIUM 8.5 mg/dL (8.5-10.1); CREATININE 2.2 mg/dL (0.7-1.3); GFR 35.5; POTASSIUM 4.6 mmol/L (3.5-5.1); TOTAL BILIRUBIN 0.4 mg/dL (0.2-1.0); TOTAL PROTEIN 6.1 g/dL (6.4-8.2)
[2021-09-09] MEDS: HEPARIN for SUB-Q USE 5,000 UNIT/ML VIAL. SQ SCH ×3 (06:00→21:31)
[2021-09-09] MEDS: BUDESONIDE 0.5 MG/2 ML NEBU. NEB SCH ×2 (06:32→18:33)
[2021-09-09] MEDS: ALBUTEROL SULFATE 2.5 MG/3 ML NEBU. NEB SCH ×4 (06:32→18:33)
[2021-09-09 06:45] VITALS: BP 87/59
[2021-09-09] MEDS: GABAPENTIN 100 MG CAPSULE. PO SCH ×2 (09:08→21:30)
[2021-09-09] MEDS: CARVEDILOL 12.5 MG TABLET. PO SCH ×2 (09:09→16:07)
[2021-09-09] MEDS: ASPIRIN ENTERIC COATED 81 MG TABLET.DR. PO SCH (09:09)
[2021-09-09] MEDS: POLYETHYLENE GLYCOL 3350 17 GM PACKET. PO SCH (09:09)
--- NOTE | 2021-09-09 09:39 | PDOC2 ---
CONSULT Date of Consult Date of Consult DATE: 09/09/21 TIME: 09:32 Reason for Consult Reason for Consult: ESRD on dialysis Referring Physician Referring Physician: Kun Identification/Chief Complaint Chief Complaint Shortness of breath, chest pain Source Source: Chart review, Patient History of Present Illness Reason for Visit: Mizra is a 76-year-old -[place]el[place] gentleman male with extensive co- Morbidity as outlined under past medical history. He is known to have presumed ESRD for the last 4 to 5 months as best as he can recollect (and as documented in the ER note ) presumably attributable to diabetes and hypertension. He currently dialyzes through a right sided tunneled dialysis catheter on Friday schedule under care of Dr. Ariza at a local [facility] unit. He is currently a resident of healthcare [facility] the [facility] from here as documented in the ER notes. He presented to the ER yesterday via ambulance that he called himself with complaints of chest pain and shortness of breath, hence did not go to his usual Friday dialysis. Chest pain resolved by the time he got to the ER. He has been evaluated by cardiology for the same also. He does make small amounts of urine I was called this morning for consult Past Medical History Cardiovascular: CAD, CHF, HTN, Hyperlipidemia, Other Pulmonary: Asthma, COPD, Previously Intubated, Other Heme/Onc: Anemia NOS Hepatobiliary: No pertinent hx Musculoskeletal: Other Rheumatologic: Gout Renal/: Chronic renal insuff, Other Endocrine: Diabetes Past Surgical History Past Surgical History: Other (Hemodialysis access.) Family History Family History: Family History Unknown Social History Quit ALCOHOL: rare Drugs: Marijuana Lives: with Family Current Problem List Problem List Problems Medical Problems: (1) Other chest pain Status: Acute Current Medications Current Medications Current Medications Aspirin (Aspirin Chewable) 324 mg 1X ONCE PO Last administered on 09/07/21at 23:19; Start 09/07/21 at 23:30; Stop 09/07/21 at 23:31; Status DC Fentanyl Citrate (Fentanyl 2ml Vial) 25 mcg PRN Q15MIN PRN IV PAIN GREATER THAN 3/10 Last administered on 09/07/21at 23:22; Start 09/07/21 at 23:00; Stop 09/08/21 at 22:59; Status DC Ondansetron HCl (Zofran) 4 mg PRN Q8HRS PRN IVP NAUSEA/VOMITING 1ST CHOICE; Start 09/08/21 at 00:15; Stop 09/09/21 at 00:14; Status DC Fentanyl Citrate (Fentanyl 2ml Vial) 25 mcg PRN Q1HR PRN IVP SEVERE PAIN 7-10; Start 09/08/21 at 00:15; Stop 09/09/21 at 00:14; Status DC Amlodipine Besylate (Norvasc) 10 mg DAILY PO Last administered on 09/09/21at 09:08; Start 09/08/21 at 10:30 Aspirin (Ecotrin) 81 mg DAILYWBKFT PO Last administered on 09/09/21 09:09; Start 09/08/21 at 10:30 Carvedilol (Coreg) 37.5 mg BIDWMEALS PO Last administered on 09/09/21 09:09; Start 09/08/21 at 10:30 Gabapentin (Neurontin) 200 mg BID PO Last administered on 09/09/21at 09:08; Start 09/08/21 at 10:30 Montelukast Sodium (Singulair) 10 mg HS PO Last administered on 09/08/21at 20:32; Start 09/08/21 at 21:00 Polyethylene Glycol (miraLAX PACKET) 17 gm DAILY PO Last administered on 1 11/10/20at 09:09; Start 09/08/21 at 10:30 Atorvastatin Calcium (Lipitor) 80 mg HS PO Last administered on 09/08/21at 20:33; Start 09/08/21 at 21:00 Non-Formulary Medication (Fluticasone/ Salmeterol (Advair 100-50 Diskus)) 1 puff BID IH ; Start 09/08/21 at 21:00; Status UNV Ondansetron HCl (Zofran) 4 mg PRN Q6HRS PRN IVP NAUSEA/VOMITING; Start 09/08/21 at 09:45 Calcium Carbonate/ Glycine (Tums) 500 mg PRN Q3HRS PRN PO UPSET STOMACH; Start 09/08/21 at 09:45 Zolpidem Tartrate (Ambien) 5 mg PRN QHS PRN PO INSOMNIA, MAY REPEAT IN 1HR; Start 09/08/21 at 09:45 Info (Non-Icu Electrolyte Protocol) 1 ea PRN DAILY PRN MC SEE COMMENTS; Start 09/08/21 at 09:45 Oxycodone HCl (Roxicodone) 5 mg PRN Q4HRS PRN PO MILD PAIN, 1ST CHOICE; Start 09/08/21 at 09:45 Oxycodone HCl (Roxicodone) 10 mg PRN Q4HRS PRN PO MODERATE PAIN, SEVERE PAIN; Start 09/08/21 at 09:45 Acetaminophen (Tylenol) 650 mg PRN Q6HRS PRN PO Headaches, Temp > 101.5F; Start 09/08/21 at 09:45 Heparin Sodium (Porcine) (Heparin Sodium) 5,000 unit Q8HRS SQ Last administered on 09/09/21at 06:00; Start 09/08/21 at 14:00 Budesonide (Pulmicort) 0.5 mg RTBID NEB Last administered on 09/09/21at 06:32; Start 09/08/21 at 20:00 Albuterol Sulfate (Ventolin Neb Soln) 2.5 mg RTQID NEB Last administered on 09/09/21at 06:32; Start 09/08/21 at 12:00 Pharmacy Consult (C.diff Med Screen By Rx) 1 each 1X ONCE MC ; Start 09/09/21 at 01:15; Stop 09/09/21 at 01:16; Status DC Furosemide (Lasix) 80 mg TID IVP ; Start 09/09/21 at 09:15 Active Scripts Active Polyethylene Glycol 3350 17 Gm Powd.pack 17 Gm PO DAILY 14 Days Acetaminophen 325 Mg Tablet 650 Mg PO PRN Q4HRS PRN 14 Days Aspirin Ec (Aspirin) 81 Mg Tablet. 81 Mg PO DAILYWBKFT 30 Days Reported Montelukast Sodium Tablet (Montelukast Sodium) 10 Mg Tablet 10 Mg PO HS Renal-Anjelica Tablet (Folic Acid/Vit Bcomp,C) 0.8 Mg Tablet 1 Tab PO DAILY 30 Days Magnesium Oxide 400 Mg Tablet 1 Tab PO DAILY Hydrocodone-Apap 5-325 (Hydrocodone Bit/Acetaminophen) 1 Tab Tablet 1 Tab PO PRN Q6HRS PRN Feosol (Ferrous Sulfate) 325 Mg Tablet 325 Mg PO DAILY Cymbalta (Duloxetine Hcl) 30 Mg Capsule. 30 Mg PO DAILY Diphenhydramine Hcl 25 Mg Tablet 25 Mg PO PRN Q6HRS PRN Diclofenac Sodium 100 Gm Gel..gram. 100 Gm TP BID Artificial Tears Drops (Peg 400/Hypromellose/Glycerin) 15 Ml Drops 1 Drop EACHEYE QID 30 Days Amiodarone Hcl 200 Mg Tablet 1 Tab PO DAILY Humalog (Insulin Lispro) 100 Unit/1 Ml Cartridge Unknown Dose SQ TIDAC 4 units + SSI (2-12 Units) Protonix (Pantoprazole Sodium) 20 Mg Tablet.dr 20 Mg PO DAILY Carvedilol 25 Mg Tablet 25 Mg PO BIDWMEALS Gabapentin 100 Mg Capsule 100 Mg PO QHS Duoneb 0.5-3(2.5) Mg/3 Ml (Albuterol/Ipratropium) 3 Ml Ampul.neb 3 Ml NEB Q6HRS PRN Bisacodyl 10 Mg Supp.rect 10 Mg RC PRN DAILY PRN Lipitor (Atorvastatin Calcium) 80 Mg Tablet 80 Mg PO HS Lac-Hydrin Five (Ammonium Lactate) 226 Gm Lotion 1 Gary TP BID 30 Days Montelukast Sodium Tablet (Montelukast Sodium) 10 Mg Tablet 10 Mg PO HS Allergies Allergies: Coded Allergies: Penicillins (Verified Allergy, Intermediate, 04/16/21) morphine (Verified Allergy, Intermediate, 04/16/21) itches real bad all over ROS Review of System 14 point review of systems negative other than as mentioned in the HPI Physical Exam Physical Exam General Appearance: Awake Alert Oriented x 1-2 In no visible Distress Eyes: VIsion Unchanged Conjunctiva Normal EN: No EN Drainage Mucous Memb. moist Neck: no JVD min JVP Supple no Thyromegaly CVS: S1 S2 ? soft Murmur No Gallop No Rub no Edema Resp: no Rales no Rhonchi no Acc. Muscle use GI: BAS +ve NO Bruit Non Tender Non Distended : no CVA tenderness; n Suprapubic Tenderness SKIN: no Rashes Breast Exam deferred Mu.Sk: Not very cooperative with assessment of ROM min Muscle Atrophy Heme: Unable to palpate Obvious LAD no palpable splenomegaly NEURO: ? Decreased strength, no asterixis, cranial Nerves II - XII grossly intact Psych: Appears somewhat depressed no active hallucination Vital Signs Vital Signs Date Time Temp Pulse Resp B/P (MAP) Pulse Ox O2 Delivery O2 Flow Rate FiO2 09/09/21 09:09 61 141/61 09/09/21 06:45 98.9 21 97 Nasal Cannula 2.0 98.9 Assessment & Plan ESRD versus ILDA/ATN: Current FLuid and E-lyte status does not necessitate emergent need for Dialysis. Will re-evaluate for Dialysis in am and continue on TTSat schedule. Subjective shortness of breath: No significant fluid overload is noted at this time. IV Lasix as ordered at this time. Oxygen saturations appear to be adequate with minimal amounts of supplemental nasal cannula oxygen Anemia: Heart Epogen as ordered, transfuse with next HD as needed. HTN: Current BP meds reviewed. See orders for changes. Bone & Mineral: Follow phosphorus levels and alter binder regimen if needed hypoalbuminemia: Unclear if this is a reflection of poor nutrition in an institutionalized patient Discussed Plan of Care and prognosis with patient's nurse at bedside Labs Labs Laboratory Tests Test 09/07/21 22:50 09/07/21 23:05 09/08/21 01:45 09/08/21 04:50 White Blood Count 8.3 x10^3/uL (4.0-11.0) Red Blood Count 3.40 x10^6/uL (4.30-5.70) Hemoglobin 9.1 g/dL (13.0-17.5) Hematocrit 28.5 % (39.0-53.0) Mean Corpuscular Volume 84 fL (79-100) Mean Corpuscular Hemoglobin 27 pg (25-35) Mean Corpuscular Hemoglobin Concent 32 g/dL (31-37) Red Cell Distribution Width 17.0 % (11.5-14.5) Platelet Count 332 x10^3/uL (140-400) Neutrophils (%) (Auto) 53 % (31-73) Lymphocytes (%) (Auto) 29 % (24-48) Monocytes (%) (Auto) 11 % (0-9) Eosinophils (%) (Auto) 7 % (0-3) Basophils (%) (Auto) 1 % (0-3) Neutrophils # (Auto) 4.4 x10^3/uL (1.8-7.7) Lymphocytes # (Auto) 2.4 x10^3/uL (1.0-4.8) Monocytes # (Auto) 0.9 x10^3/uL (0.0-1.1) Eosinophils # (Auto) 0.5 x10^3/uL (0.0-0.7) Basophils # (Auto) 0.1 x10^3/uL (0.0-0.2) Prothrombin Time 13.1 SEC (11.7-14.0) Prothromb Time International Ratio 1.0 (0.8-1.1) Activated Partial Thromboplast Time 33 SEC (24-38) Sodium Level 139 mmol/L (136-145) Potassium Level 4.5 mmol/L (3.5-5.1) Chloride Level 102 mmol/L (98-107) Carbon Dioxide Level 31 mmol/L (21-32) Anion Gap 6 (6-14) Blood Urea Nitrogen 15 mg/dL (8-26) Creatinine 2.2 mg/dL (0.7-1.3) Estimated GFR (Cockcroft-Gault) 35.5 BUN/Creatinine Ratio 7 (6-20) Glucose Level 147 mg/dL (70-99) Calcium Level 8.4 mg/dL (8.5-10.1) Magnesium Level 1.9 mg/dL (1.8-2.4) Total Bilirubin 0.4 mg/dL (0.2-1.0) Aspartate Amino Transf (AST/SGOT) 12 U/L (15-37) Alanine Aminotransferase (ALT/SGPT) 8 U/L (16-63) Alkaline Phosphatase 68 U/L (46-116) Troponin I High Sensitivity 17 ng/L (4-75) 18 ng/L (4-75) 18 ng/L (4-75) MD-Dzn-W-Type Natriuretic Peptide 6801 pg/mL (0-449) Total Protein 6.3 g/dL (6.4-8.2) Albumin 2.8 g/dL (3.4-5.0) Albumin/Globulin Ratio 0.8 (1.0-1.7) SARS-CoV-2 RNA (PIEDAD) Negative (Negative) SARS-CoV-2 Antigen (Rapid) Negative (NEGATIVE) Test 09/08/21 05:56 09/09/21 03:40 09/09/21 07:32 Troponin I High Sensitivity 19 ng/L (4-75) White Blood Count 6.5 x10^3/uL (4.0-11.0) Red Blood Count 3.32 x10^6/uL (4.30-5.70) Hemoglobin 8.8 g/dL (13.0-17.5) Hematocrit 28.0 % (39.0-53.0) Mean Corpuscular Volume 85 fL (79-100) Mean Corpuscular Hemoglobin 27 pg (25-35) Mean Corpuscular Hemoglobin Concent 31 g/dL (31-37) Red Cell Distribution Width 17.4 % (11.5-14.5) Platelet Count 314 x10^3/uL (140-400) Neutrophils (%) (Auto) 54 % (31-73) Lymphocytes (%) (Auto) 27 % (24-48) Monocytes (%) (Auto) 11 % (0-9) Eosinophils (%) (Auto) 7 % (0-3) Basophils (%) (Auto) 1 % (0-3) Neutrophils # (Auto) 3.5 x10^3/uL (1.8-7.7) Lymphocytes # (Auto) 1.8 x10^3/uL (1.0-4.8) Monocytes # (Auto) 0.7 x10^3/uL (0.0-1.1) Eosinophils # (Auto) 0.4 x10^3/uL (0.0-0.7) Basophils # (Auto) 0.1 x10^3/uL (0.0-0.2) Sodium Level 141 mmol/L (136-145) Potassium Level 4.6 mmol/L (3.5-5.1) Chloride Level 104 mmol/L (98-107) Carbon Dioxide Level 31 mmol/L (21-32) Anion Gap 6 (6-14) Blood Urea Nitrogen 18 mg/dL (8-26) Creatinine 2.2 mg/dL (0.7-1.3) Estimated GFR (Cockcroft-Gault) 35.5 BUN/Creatinine Ratio 8 (6-20) Glucose Level 139 mg/dL (70-99) Calcium Level 8.5 mg/dL (8.5-10.1) Total Bilirubin 0.4 mg/dL (0.2-1.0) Aspartate Amino Transf (AST/SGOT) 13 U/L (15-37) Alanine Aminotransferase (ALT/SGPT) 11 U/L (16-63) Alkaline Phosphatase 57 U/L (46-116) Total Protein 6.1 g/dL (6.4-8.2) Albumin 2.5 g/dL (3.4-5.0) Albumin/Globulin Ratio 0.7 (1.0-1.7) Glucose (Fingerstick) 143 mg/dL (70-99) Laboratory Tests Test 09/09/21 03:40 09/09/21 07:32 White Blood Count 6.5 x10^3/uL (4.0-11.0) Red Blood Count 3.32 x10^6/uL (4.30-5.70) Hemoglobin 8.8 g/dL (13.0-17.5) Hematocrit 28.0 % (39.0-53.0) Mean Corpuscular Volume 85 fL (79-100) Mean Corpuscular Hemoglobin 27 pg (25-35) Mean Corpuscular Hemoglobin Concent 31 g/dL (31-37) Red Cell Distribution Width 17.4 % (11.5-14.5) Platelet Count 314 x10^3/uL (140-400) Neutrophils (%) (Auto) 54 % (31-73) Lymphocytes (%) (Auto) 27 % (24-48) Monocytes (%) (Auto) 11 % (0-9) Eosinophils (%) (Auto) 7 % (0-3) Basophils (%) (Auto) 1 % (0-3) Neutrophils # (Auto) 3.5 x10^3/uL (1.8-7.7) Lymphocytes # (Auto) 1.8 x10^3/uL (1.0-4.8) Monocytes # (Auto) 0.7 x10^3/uL (0.0-1.1) Eosinophils # (Auto) 0.4 x10^3/uL (0.0-0.7) Basophils # (Auto) 0.1 x10^3/uL (0.0-0.2) Sodium Level 141 mmol/L (136-145) Potassium Level 4.6 mmol/L (3.5-5.1) Chloride Level 104 mmol/L (98-107) Carbon Dioxide Level 31 mmol/L (21-32) Anion Gap 6 (6-14) Blood Urea Nitrogen 18 mg/dL (8-26) Creatinine 2.2 mg/dL (0.7-1.3) Estimated GFR (Cockcroft-Gault) 35.5 BUN/Creatinine Ratio 8 (6-20) Glucose Level 139 mg/dL (70-99) Calcium Level 8.5 mg/dL (8.5-10.1) Total Bilirubin 0.4 mg/dL (0.2-1.0) Aspartate Amino Transf (AST/SGOT) 13 U/L (15-37) Alanine Aminotransferase (ALT/SGPT) 11 U/L (16-63) Alkaline Phosphatase 57 U/L (46-116) Total Protein 6.1 g/dL (6.4-8.2) Albumin 2.5 g/dL (3.4-5.0) Albumin/Globulin Ratio 0.7 (1.0-1.7) Glucose (Fingerstick) 143 mg/dL (70-99) Review All relevant outside records, renal labs, imaging studies, telemetry/EKG's were reviewed. Images Images Chest x-ray from ER yesterday IMPRESSION: 1. Interval removal of tracheostomy tube, left central venous catheter, and nasogastric tube.. 2. Decreased, mild pulmonary edema. Small left pleural effusion. DEREK RIVERO MD Sep 09, 2021 09:39
[2021-09-09] MEDS ORDERED: MAGNESIUM SULFATE 2GM 50 ML IV PRN (09:45)
[2021-09-09] MEDS: FUROSEMIDE 40 MG/4 ML VIAL. IVP SCH ×3 (09:59→21:31)
[2021-09-09 11:00] VITALS: BP 159/64
[2021-09-09 12:20] LABS: BILIRUBIN,URINE NEGATIVE (NEG); CLARITY,URINE TURBID; COLOR,URINE YELLOW; NITRITE,URINE NEGATIVE (NEG); PH,URINE 6.5 (<5.0-8.0); PROTEIN,URINE 100 mg/dL (NEG-TRACE)
[2021-09-09 12:38] LABS: BACTERIA,URINE MANY /HPF (0-FEW); WBC,URINE TNTC /HPF (0-4)
[2021-09-09] MEDS ORDERED: BISACODYL 10 MG SUPP.RECT. RC PRN (14:45)
[2021-09-09] MEDS ORDERED: ACETAMINOPHEN 325 MG TABLET. PO PRN (14:45)
[2021-09-09] MEDS ORDERED: AMMONIUM LACTATE 12% TOPICAL LOTION 225GM BOTTLE. TP PRN (14:45)
[2021-09-09 15:00] VITALS: BP 116/57
[2021-09-09] MEDS ORDERED: ALBUTEROL SULFATE 2.5 MG/3 ML NEBU. NEB PRN (15:00)
[2021-09-09] MEDS ORDERED: POLYVINYL ALCOHOL 1.4% OPHTH SOLUTION 15ML BOTTLE. OU PRN (15:00)
[2021-09-09] MEDS: diphenhydrAMINE HCL 25 MG CAPSULE PO PRN (15:19)
[2021-09-09] MEDS: DULoxetine HCL 30 MG CAPSULE.DR PO SCH (16:05)
[2021-09-09] MEDS: AMIODARONE HCL 200 MG TABLET. PO SCH (16:06)
--- NOTE | 2021-09-09 16:06 | PDOC ---
PROGRESS NOTES Date of Service DATE: 09/09/21 TIME: 16:04 Subjective Subjective Patient seen and examined Objective Objective Vital Signs Date Time Temp Pulse Resp B/P (MAP) Pulse Ox O2 Delivery O2 Flow Rate FiO2 09/09/21 15:23 99 Nasal Cannula 2.0 09/09/21 11:00 98.5 66 18 159/64 (95) 98.5 Intake and Output 09/09/21 07:00 Intake Total 180 ml Output Total 200 ml Balance -20 ml Intake Oral 180 ml Output Urine Total 200 ml Physical Exam Abdomen: Normal bowel sounds Heart: Regular rate General: mild distress Lungs: Other (Mildly decreased breath sounds) Assessment Assessment Problems Medical Problems: (1) Other chest pain Status: Acute 1. Shortness of breath. The patient shortness of breath has improved. We will continue present medications. He is being evaluated by the renal service as above. 2. Chest pain. Pain as noted above was mild. It resolved before being evaluated in the emergency room. His EKG shows no acute ischemic changes. Troponin x3 have been normal. We will continue present treatment. No chest pain overnight. 3. End-stage renal disease. As per the renal service. 4. History of paroxysmal atrial fibrillation. Patient remains in a sinus rhythm. 5. Hypertension. Under reasonable control. 6. Hyperlipidemia. Continue medications. 7. Diabetes mellitus. Comment Review of Relevant I have reviewed the following items juanita (where applicable) has been applied. Labs Laboratory Tests Test 09/07/21 22:50 09/07/21 23:05 09/08/21 01:45 09/08/21 04:50 White Blood Count 8.3 x10^3/uL (4.0-11.0) Red Blood Count 3.40 x10^6/uL (4.30-5.70) Hemoglobin 9.1 g/dL (13.0-17.5) Hematocrit 28.5 % (39.0-53.0) Mean Corpuscular Volume 84 fL (79-100) Mean Corpuscular Hemoglobin 27 pg (25-35) Mean Corpuscular Hemoglobin Concent 32 g/dL (31-37) Red Cell Distribution Width 17.0 % (11.5-14.5) Platelet Count 332 x10^3/uL (140-400) Neutrophils (%) (Auto) 53 % (31-73) Lymphocytes (%) (Auto) 29 % (24-48) Monocytes (%) (Auto) 11 % (0-9) Eosinophils (%) (Auto) 7 % (0-3) Basophils (%) (Auto) 1 % (0-3) Neutrophils # (Auto) 4.4 x10^3/uL (1.8-7.7) Lymphocytes # (Auto) 2.4 x10^3/uL (1.0-4.8) Monocytes # (Auto) 0.9 x10^3/uL (0.0-1.1) Eosinophils # (Auto) 0.5 x10^3/uL (0.0-0.7) Basophils # (Auto) 0.1 x10^3/uL (0.0-0.2) Prothrombin Time 13.1 SEC (11.7-14.0) Prothromb Time International Ratio 1.0 (0.8-1.1) Activated Partial Thromboplast Time 33 SEC (24-38) Sodium Level 139 mmol/L (136-145) Potassium Level 4.5 mmol/L (3.5-5.1) Chloride Level 102 mmol/L (98-107) Carbon Dioxide Level 31 mmol/L (21-32) Anion Gap 6 (6-14) Blood Urea Nitrogen 15 mg/dL (8-26) Creatinine 2.2 mg/dL (0.7-1.3) Estimated GFR (Cockcroft-Gault) 35.5 BUN/Creatinine Ratio 7 (6-20) Glucose Level 147 mg/dL (70-99) Calcium Level 8.4 mg/dL (8.5-10.1) Magnesium Level 1.9 mg/dL (1.8-2.4) Total Bilirubin 0.4 mg/dL (0.2-1.0) Aspartate Amino Transf (AST/SGOT) 12 U/L (15-37) Alanine Aminotransferase (ALT/SGPT) 8 U/L (16-63) Alkaline Phosphatase 68 U/L (46-116) Troponin I High Sensitivity 17 ng/L (4-75) 18 ng/L (4-75) 18 ng/L (4-75) BO-Rnq-B-Type Natriuretic Peptide 6801 pg/mL (0-449) Total Protein 6.3 g/dL (6.4-8.2) Albumin 2.8 g/dL (3.4-5.0) Albumin/Globulin Ratio 0.8 (1.0-1.7) SARS-CoV-2 RNA (PIEDAD) Negative (Negative) SARS-CoV-2 Antigen (Rapid) Negative (NEGATIVE) Test 09/08/21 05:56 09/09/21 03:40 09/09/21 07:32 09/09/21 11:27 Troponin I High Sensitivity 19 ng/L (4-75) White Blood Count 6.5 x10^3/uL (4.0-11.0) Red Blood Count 3.32 x10^6/uL (4.30-5.70) Hemoglobin 8.8 g/dL (13.0-17.5) Hematocrit 28.0 % (39.0-53.0) Mean Corpuscular Volume 85 fL (79-100) Mean Corpuscular Hemoglobin 27 pg (25-35) Mean Corpuscular Hemoglobin Concent 31 g/dL (31-37) Red Cell Distribution Width 17.4 % (11.5-14.5) Platelet Count 314 x10^3/uL (140-400) Neutrophils (%) (Auto) 54 % (31-73) Lymphocytes (%) (Auto) 27 % (24-48) Monocytes (%) (Auto) 11 % (0-9) Eosinophils (%) (Auto) 7 % (0-3) Basophils (%) (Auto) 1 % (0-3) Neutrophils # (Auto) 3.5 x10^3/uL (1.8-7.7) Lymphocytes # (Auto) 1.8 x10^3/uL (1.0-4.8) Monocytes # (Auto) 0.7 x10^3/uL (0.0-1.1) Eosinophils # (Auto) 0.4 x10^3/uL (0.0-0.7) Basophils # (Auto) 0.1 x10^3/uL (0.0-0.2) Sodium Level 141 mmol/L (136-145) Potassium Level 4.6 mmol/L (3.5-5.1) Chloride Level 104 mmol/L (98-107) Carbon Dioxide Level 31 mmol/L (21-32) Anion Gap 6 (6-14) Blood Urea Nitrogen 18 mg/dL (8-26) Creatinine 2.2 mg/dL (0.7-1.3) Estimated GFR (Cockcroft-Gault) 35.5 BUN/Creatinine Ratio 8 (6-20) Glucose Level 139 mg/dL (70-99) Calcium Level 8.5 mg/dL (8.5-10.1) Total Bilirubin 0.4 mg/dL (0.2-1.0) Aspartate Amino Transf (AST/SGOT) 13 U/L (15-37) Alanine Aminotransferase (ALT/SGPT) 11 U/L (16-63) Alkaline Phosphatase 57 U/L (46-116) Total Protein 6.1 g/dL (6.4-8.2) Albumin 2.5 g/dL (3.4-5.0) Albumin/Globulin Ratio 0.7 (1.0-1.7) Glucose (Fingerstick) 143 mg/dL (70-99) Urine Collection Type Unknown Urine Color Yellow Urine Clarity Turbid Urine pH 6.5 (<5.0-8.0) Urine Specific [place] 1.010 (1.000-1.030) Urine Protein 100 mg/dL (NEG-TRACE) Urine Glucose (UA) Negative mg/dL (NEG) Urine Ketones (Stick) Negative mg/dL (NEG) Urine Blood Moderate (NEG) Urine Nitrite Negative (NEG) Urine Bilirubin Negative (NEG) Urine Urobilinogen Dipstick 1.0 mg/dL (0.2 mg/dL) Urine Leukocyte Esterase Large (NEG) Urine RBC 6-10 /HPF (0-2) Urine WBC Tntc /HPF (0-4) Urine Bacteria Many /HPF (0-FEW) Laboratory Tests Test 09/09/21 03:40 09/09/21 07:32 09/09/21 11:27 White Blood Count 6.5 x10^3/uL (4.0-11.0) Red Blood Count 3.32 x10^6/uL (4.30-5.70) Hemoglobin 8.8 g/dL (13.0-17.5) Hematocrit 28.0 % (39.0-53.0) Mean Corpuscular Volume 85 fL (79-100) Mean Corpuscular Hemoglobin 27 pg (25-35) Mean Corpuscular Hemoglobin Concent 31 g/dL (31-37) Red Cell Distribution Width 17.4 % (11.5-14.5) Platelet Count 314 x10^3/uL (140-400) Neutrophils (%) (Auto) 54 % (31-73) Lymphocytes (%) (Auto) 27 % (24-48) Monocytes (%) (Auto) 11 % (0-9) Eosinophils (%) (Auto) 7 % (0-3) Basophils (%) (Auto) 1 % (0-3) Neutrophils # (Auto) 3.5 x10^3/uL (1.8-7.7) Lymphocytes # (Auto) 1.8 x10^3/uL (1.0-4.8) Monocytes # (Auto) 0.7 x10^3/uL (0.0-1.1) Eosinophils # (Auto) 0.4 x10^3/uL (0.0-0.7) Basophils # (Auto) 0.1 x10^3/uL (0.0-0.2) Sodium Level 141 mmol/L (136-145) Potassium Level 4.6 mmol/L (3.5-5.1) Chloride Level 104 mmol/L (98-107) Carbon Dioxide Level 31 mmol/L (21-32) Anion Gap 6 (6-14) Blood Urea Nitrogen 18 mg/dL (8-26) Creatinine 2.2 mg/dL (0.7-1.3) Estimated GFR (Cockcroft-Gault) 35.5 BUN/Creatinine Ratio 8 (6-20) Glucose Level 139 mg/dL (70-99) Calcium Level 8.5 mg/dL (8.5-10.1) Total Bilirubin 0.4 mg/dL (0.2-1.0) Aspartate Amino Transf (AST/SGOT) 13 U/L (15-37) Alanine Aminotransferase (ALT/SGPT) 11 U/L (16-63) Alkaline Phosphatase 57 U/L (46-116) Total Protein 6.1 g/dL (6.4-8.2) Albumin 2.5 g/dL (3.4-5.0) Albumin/Globulin Ratio 0.7 (1.0-1.7) Glucose (Fingerstick) 143 mg/dL (70-99) Urine Collection Type Unknown Urine Color Yellow Urine Clarity Turbid Urine pH 6.5 (<5.0-8.0) Urine Specific [place] 1.010 (1.000-1.030) Urine Protein 100 mg/dL (NEG-TRACE) Urine Glucose (UA) Negative mg/dL (NEG) Urine Ketones (Stick) Negative mg/dL (NEG) Urine Blood Moderate (NEG) Urine Nitrite Negative (NEG) Urine Bilirubin Negative (NEG) Urine Urobilinogen Dipstick 1.0 mg/dL (0.2 mg/dL) Urine Leukocyte Esterase Large (NEG) Urine RBC 6-10 /HPF (0-2) Urine WBC Tntc /HPF (0-4) Urine Bacteria Many /HPF (0-FEW) Medications Current Medications Aspirin (Aspirin Chewable) 324 mg 1X ONCE PO Last administered on 09/07/21at 23:19; Start 09/07/21 at 23:30; Stop 09/07/21 at 23:31; Status DC Fentanyl Citrate (Fentanyl 2ml Vial) 25 mcg PRN Q15MIN PRN IV PAIN GREATER THAN 3/10 Last administered on 09/07/21at 23:22; Start 09/07/21 at 23:00; Stop 09/08/21 at 22:59; Status DC Ondansetron HCl (Zofran) 4 mg PRN Q8HRS PRN IVP NAUSEA/VOMITING 1ST CHOICE; Start 09/08/21 at 00:15; Stop 09/09/21 at 00:14; Status DC Fentanyl Citrate (Fentanyl 2ml Vial) 25 mcg PRN Q1HR PRN IVP SEVERE PAIN 7-10; Start 09/08/21 at 00:15; Stop 09/09/21 at 00:14; Status DC Amlodipine Besylate (Norvasc) 10 mg DAILY PO Last administered on 09/09/21at 09:08; Start 09/08/21 at 10:30 Aspirin (Ecotrin) 81 mg DAILYWBKFT PO Last administered on 09/09/21at 09:09; Start 09/08/21 at 10:30 Carvedilol (Coreg) 37.5 mg BIDWMEALS PO Last administered on 09/09/21at 09:09; Start 09/08/21 at 10:30; Stop 09/09/21 at 15:01; Status DC Gabapentin (Neurontin) 200 mg BID PO Last administered on 09/09/21at 09:08; Start 09/08/21 at 10:30; Stop 09/09/21 at 15:01; Status DC Montelukast Sodium (Singulair) 10 mg HS PO Last administered on 09/08/21at 20:32; Start 09/08/21 at 21:00 Polyethylene Glycol (miraLAX PACKET) 17 gm DAILY PO Last administered on 09/09/21at 09:09; Start 09/08/21 at 10:30 Atorvastatin Calcium (Lipitor) 80 mg HS PO Last administered on 09/08/21at 20:33; Start 09/08/21 at 21:00 Non-Formulary Medication (Fluticasone/ Salmeterol (Advair 100-50 Diskus)) 1 puff BID IH ; Start 09/08/21 at 21:00; Status UNV Ondansetron HCl (Zofran) 4 mg PRN Q6HRS PRN IVP NAUSEA/VOMITING; Start 09/08/21 at 09:45 Calcium Carbonate/ Glycine (Tums) 500 mg PRN Q3HRS PRN PO UPSET STOMACH; Start 09/08/21 at 09:45 Zolpidem Tartrate (Ambien) 5 mg PRN QHS PRN PO INSOMNIA, MAY REPEAT IN 1HR; Start 09/08/21 at 09:45 Info (Non-Icu Electrolyte Protocol) 1 ea PRN DAILY PRN MC SEE COMMENTS; Start 09/08/21 at 09:45 Oxycodone HCl (Roxicodone) 5 mg PRN Q4HRS PRN PO MILD PAIN, 1ST CHOICE; Start 09/08/21 at 09:45 Oxycodone HCl (Roxicodone) 10 mg PRN Q4HRS PRN PO MODERATE PAIN, SEVERE PAIN; Start 09/08/21 at 09:45 Acetaminophen (Tylenol) 650 mg PRN Q6HRS PRN PO Headaches, Temp > 101.5F; Start 09/08/21 at 09:45 Heparin Sodium (Porcine) (Heparin Sodium) 5,000 unit Q8HRS SQ Last administered on 09/09/21at 14:37; Start 09/08/21 at 14:00 Budesonide (Pulmicort) 0.5 mg RTBID NEB Last administered on 09/09/21at 06:32; Start 09/08/21 at 20:00 Albuterol Sulfate (Ventolin Neb Soln) 2.5 mg RTQID NEB Last administered on 09/09/21at 15:22; Start 09/08/21 at 12:00 Pharmacy Consult (C.diff Med Screen By Rx) 1 each 1X ONCE MC ; Start 09/09/21 at 01:15; Stop 09/09/21 at 01:16; Status DC Furosemide (Lasix) 80 mg TID IVP Last administered on 09/09/21at 14:36; Start 09/09/21 at 09:15 Epoetin Corey-epbx (RETACRIT for ESRD PTS) 10,000 unit MoWeFr@2100 SQ ; Start 09/10/21 at 21:00 Magnesium Sulfate 50 ml @ 25 mls/hr PRN DAILY PRN IV for Mag < 1.7 on am labs; Start 09/09/21 at 09:45 Acetaminophen (Tylenol) 650 mg PRN Q4HRS PRN PO TEMP OVER 100.4F OR MILD PAIN; Start 09/09/21 at 14:45; Status UNV Amiodarone HCl (Cordarone) 200 mg DAILY PO ; Start 09/09/21 at 16:00 Bisacodyl (Dulcolax Supp) 10 mg PRN DAILY PRN RC CONSTIPATION; Start 09/09/21 at 14:45 Duloxetine HCl (Cymbalta) 30 mg DAILY PO ; Start 09/09/21 at 16:00 Ferrous Sulfate (Feosol) 325 mg DAILY PO ; Start 09/09/21 at 16:00 Vitamin B Complex/ Vitamin C (Ana-Anjelica) 1 tab DAILY PO ; Start 09/09/21 at 16:00 Gabapentin (Neurontin) 100 mg QHS PO ; Start 09/09/21 at 21:00 Acetaminophen/ Hydrocodone Bitart (Lortab 5/325) 1 tab PRN Q6HRS PRN PO MOD-SEV PAIN 1ST CHOICE; Start 09/09/21 at 14:45 Albuterol Sulfate (Ventolin Neb Soln) 2.5 mg PRN Q6HRS PRN NEB SHORTNESS OF BREATH; Start 09/09/21 at 15:00 Magnesium Oxide (Magnesium Oxide) 400 mg DAILY PO ; Start 09/09/21 at 16:00 Montelukast Sodium (Singulair) 10 mg HS PO ; Start 09/09/21 at 21:00; Status UNV Carvedilol (Coreg) 25 mg BIDWMEALS PO ; Start 09/09/21 at 17:00 Diphenhydramine HCl (Benadryl) 25 mg PRN Q6HRS PRN PO ITCHING Last administered on 09/09/21at 15:19; Start 09/09/21 at 15:00 Pantoprazole Sodium (Protonix) 40 mg DAILYAC PO ; Start 09/09/21 at 16:00 Glycerin/ Hypromellose/ Polyethylene (Artificial Tears) 1 drop PRN QID PRN OU DRY EYE; Start 09/09/21 at 15:00 Lactic Acid (Lac-Hydrin) 1 gary PRN BID PRN TP ITCHING; Start 09/09/21 at 14:45 Insulin Human Lispro (HumaLOG) 4 units TIDAC SQ ; Start 09/09/21 at 16:30 Active Scripts Active Polyethylene Glycol 3350 17 Gm Powd.pack 17 Gm PO DAILY 14 Days Acetaminophen 325 Mg Tablet 650 Mg PO PRN Q4HRS PRN 14 Days Aspirin Ec (Aspirin) 81 Mg Tablet. 81 Mg PO DAILYWBKFT 30 Days Reported Montelukast Sodium Tablet (Montelukast Sodium) 10 Mg Tablet 10 Mg PO HS Renal-Anjelica Tablet (Folic Acid/Vit Bcomp,C) 0.8 Mg Tablet 1 Tab PO DAILY 30 Days Magnesium Oxide 400 Mg Tablet 1 Tab PO DAILY Hydrocodone-Apap 5-325 (Hydrocodone Bit/Acetaminophen) 1 Tab Tablet 1 Tab PO PRN Q6HRS PRN Feosol (Ferrous Sulfate) 325 Mg Tablet 325 Mg PO DAILY Cymbalta (Duloxetine Hcl) 30 Mg Capsule. 30 Mg PO DAILY Diphenhydramine Hcl 25 Mg Tablet 25 Mg PO PRN Q6HRS PRN Diclofenac Sodium 100 Gm Gel..gram. 100 Gm TP BID Artificial Tears Drops (Peg 400/Hypromellose/Glycerin) 15 Ml Drops 1 Drop EACHEYE QID 30 Days Amiodarone Hcl 200 Mg Tablet 1 Tab PO DAILY Humalog (Insulin Lispro) 100 Unit/1 Ml Cartridge Unknown Dose SQ TIDAC 4 units + SSI (2-12 Units) Protonix (Pantoprazole Sodium) 20 Mg Tablet. 20 Mg PO DAILY Carvedilol 25 Mg Tablet 25 Mg PO BIDWMEALS Gabapentin 100 Mg Capsule 100 Mg PO QHS Duoneb 0.5-3(2.5) Mg/3 Ml (Albuterol/Ipratropium) 3 Ml Ampul.neb 3 Ml NEB Q6HRS PRN Bisacodyl 10 Mg Supp.rect 10 Mg RC PRN DAILY PRN Lipitor (Atorvastatin Calcium) 80 Mg Tablet 80 Mg PO HS Lac-Hydrin Five (Ammonium Lactate) 226 Gm Lotion 1 Gary TP BID 30 Days Montelukast Sodium Tablet (Montelukast Sodium) 10 Mg Tablet 10 Mg PO HS Vitals/I & O Vital Sign - Last 24 Hours 09/08/21 09/08/21 09/08/21 09/08/21 16:23 16:42 17:58 19:00 Temp 97.6 97.6 Pulse 56 62 61 Resp 16 16 21 B/P (MAP) 146/64 (91) 114/89 (97) 106/63 (77) Pulse Ox 100 98 98 99 O2 Delivery Nasal Cannula Room Air Room Air Nasal Cannula O2 Flow Rate 2.0 2.0 09/08/21 09/08/21 09/08/21 09/09/21 20:27 20:33 23:00 03:15 Temp 97.7 97.7 97.7 97.7 Pulse 62 55 58 Resp 18 20 B/P (MAP) 106/63 94/57 (69) 82/45 (57) Pulse Ox 99 100 100 O2 Delivery Nasal Cannula Nasal Cannula Nasal Cannula O2 Flow Rate 2.0 2.0 2.0 09/09/21 09/09/21 09/09/21 09/09/21 06:32 06:45 08:00 09:08 Temp 98.9 98.9 Pulse 61 75 Resp 21 B/P (MAP) 87/59 (68) 141/61 Pulse Ox 99 97 O2 Delivery Nasal Cannula Nasal Cannula O2 Flow Rate 2.0 2.0 2.0 09/09/21 09/09/21 09/09/21 09/09/21 09:09 11:00 11:23 15:23 Temp 98.5 98.5 Pulse 61 66 Resp 18 B/P (MAP) 141/61 159/64 (95) Pulse Ox 95 99 99 O2 Delivery Nasal Cannula Nasal Cannula Nasal Cannula O2 Flow Rate 2.0 2.0 2.0 Intake and Output 09/08/21 09/08/21 09/09/21 15:00 23:00 07:00 Intake Total 120 ml 60 ml Output Total 200 ml Balance 120 ml -140 ml Justifications for Admission Other Justification ILDA VIDAL RODRIGUEZ MD Sep 09, 2021 16:06
[2021-09-09] MEDS: FERROUS SULFATE 325 MG TABLET. PO SCH (16:07)
[2021-09-09] MEDS: PANTOPRAZOLE 40 MG TABLET.DR. PO SCH (16:07)
[2021-09-09] MEDS: MAGNESIUM OXIDE 400 MG TABLET PO SCH (16:07)
[2021-09-09] MEDS: FOLIC/VIT B COMP W-C (RENAL) TABLET. PO SCH (16:08)
[2021-09-09] MEDS: INSULIN LISPRO 300 UNITS/3 ML VIAL. SQ SCH (17:27)
[2021-09-09 19:50] VITALS: BP 145/70
[2021-09-09] MEDS ORDERED: MONTELUKAST SODIUM 10 MG TABLET. PO SCH (21:00)
[2021-09-09] MEDS: ATORVASTATIN CALCIUM 40 MG TABLET. PO SCH (21:30)
[2021-09-09] MEDS: MONTELUKAST SODIUM 10 MG TABLET. PO SCH (21:30)
[2021-09-09 23:00] VITALS: BP 156/62
[2021-09-10 03:22] VITALS: BP 158/80
[2021-09-10 06:04] LABS: ALBUMIN 2.5 g/dL (3.4-5.0); CALCIUM 8.3 mg/dL (8.5-10.1); CREATININE 2.4 mg/dL (0.7-1.3); GFR 32.1; PHOSPHORUS 5.7 mg/dL (2.6-4.7); POTASSIUM 4.2 mmol/L (3.5-5.1)
[2021-09-10] MEDS: PANTOPRAZOLE 40 MG TABLET.DR. PO SCH (06:16)
[2021-09-10] MEDS: HEPARIN for SUB-Q USE 5,000 UNIT/ML VIAL. SQ SCH ×3 (06:16→21:34)
[2021-09-10] MEDS: ALBUTEROL SULFATE 2.5 MG/3 ML NEBU. NEB SCH ×4 (06:17→21:15)
[2021-09-10 07:00] VITALS: BP 135/56
[2021-09-10] MEDS: INSULIN LISPRO 300 UNITS/3 ML VIAL. SQ SCH ×4 (07:30→18:05)
[2021-09-10] MEDS ORDERED: DIALYSIS PATIENT. MC PRN (08:00)
[2021-09-10] MEDS ORDERED: IV NORMAL SALINE 1000ML BAG 1,000 ML IV PRN ×2 (08:00)
[2021-09-10] MEDS: CARVEDILOL 12.5 MG TABLET. PO SCH ×2 (08:00→17:59)
[2021-09-10] MEDS: POLYETHYLENE GLYCOL 3350 17 GM PACKET. PO SCH (09:00)
[2021-09-10] MEDS: FUROSEMIDE 40 MG/4 ML VIAL. IVP SCH ×3 (09:00→21:28)
--- NOTE | 2021-09-10 11:31 | PDOC ---
[facility] PROGRESS NOTE Date of Service DOS: LATE ENTRY FOR 09/09 DATE: 09/09/21 TIME: 11:29 Chief Complaint Chief Complaint Chest pain, ESRD -Admit to hospital -Nephro consult to resume dialysis -Cardiology consult -Trend troponins -Can maybe take extra fluid off with next dialysis session? -Home meds resumed as indicated History of Present Illness History of Present Illness The patient is a 76-year-old male. Patient had a 6-week admission to this facility from April to June of 2021; he was intubated for a protracted period and also had to start dialysis. [facility]. Mirza presents for evaluation of transient achy left-sided chest discomfort with radiation to the left neck, all with onset about 2 hours prior to arrival. He called an ambulance himself. He reports associated mild shortness of breath, not much worse than usual. Chest pain had resolved by the time the patient arrived to this facility. Currently patient complains only of chronic low back pain, about the same as usual. He denies associated fevers, nausea or vomiting, upper respiratory congestion/rhinorrhea, cough, sore throat, flank pain, midline back pain, dysuria (patient still makes urine daily), changes in bowel habits. He denies loss of bowel or bladder control, saddle anesthesia, new lower extremity weakness, numbness, tingling, new urinary retention. Patient is alert and pleasantly and appropriately interactive and in no acute distress with appropriate vital signs aside from elevated blood pressure upon initial evaluation here in the emergency department 09/09 Patient evaluated examined at bedside. Resting in bed. No complaints. Cards nephro following. Vitals/I&O Vitals/I&O: Vital Signs Date Time Temp Pulse Resp B/P (MAP) Pulse Ox O2 Delivery O2 Flow Rate FiO2 09/10/21 07:00 96.6 56 16 135/56 (82) 98 Nasal Cannula 2.0 96.6 I & O 09/09/21 09/09/21 09/10/21 15:00 23:00 07:00 Intake Total 760 ml 360 ml 120 ml Output Total 1100 ml 1450 ml 1200 ml Balance -340 ml -1090 ml -1080 ml Physical Exam General: Alert, Oriented X3, Cooperative, mild distress Heart: Regular rate Lungs: Clear, Other Abdomen: Normal bowel sounds Extremities: Normal pulses Skin: No significant lesion Labs Labs: Laboratory Tests Test 09/09/21 16:39 09/09/21 21:19 09/10/21 04:20 09/10/21 07:46 Glucose (Fingerstick) 143 mg/dL (70-99) 85 mg/dL (70-99) 109 mg/dL (70-99) Hemoglobin 8.4 g/dL (13.0-17.5) Sodium Level 141 mmol/L (136-145) Potassium Level 4.2 mmol/L (3.5-5.1) Chloride Level 102 mmol/L (98-107) Carbon Dioxide Level 33 mmol/L (21-32) Anion Gap 6 (6-14) Blood Urea Nitrogen 21 mg/dL (8-26) Creatinine 2.4 mg/dL (0.7-1.3) Estimated GFR (Cockcroft-Gault) 32.1 Glucose Level 129 mg/dL (70-99) Calcium Level 8.3 mg/dL (8.5-10.1) Phosphorus Level 5.7 mg/dL (2.6-4.7) Magnesium Level 2.0 mg/dL (1.8-2.4) Albumin 2.5 g/dL (3.4-5.0) Hepatitis B Surface Antigen Nonreactive (Nonreactive) Test 09/10/21 07:47 Glucose (Fingerstick) 109 mg/dL (70-99) Assessment and Plan Assessmemt and Plan Problems Medical Problems: (1) Other chest pain Status: Acute Comment Review of Relevant I have reviewed the following items juanita (where applicable) has been applied. Medications: Current Medications Medications (Trade) Dose Ordered Sig/Jodie Route PRN Reason Start Time Stop Time Status Last Admin Dose Admin Amiodarone HCl (Cordarone) 200 mg DAILY PO 09/09/21 16:00 09/09/21 16:06 Duloxetine HCl (Cymbalta) 30 mg DAILY PO 09/09/21 16:00 09/09/21 16:05 Ferrous Sulfate (Feosol) 325 mg DAILY PO 09/09/21 16:00 09/09/21 16:07 Vitamin B Complex/ Vitamin C (Ana-Anjelica) 1 tab DAILY PO 09/09/21 16:00 09/09/21 16:08 Gabapentin (Neurontin) 100 mg QHS PO 09/09/21 21:00 09/09/21 21:30 Magnesium Oxide (Magnesium Oxide) 400 mg DAILY PO 09/09/21 16:00 09/09/21 16:07 Carvedilol (Coreg) 25 mg BIDWMEALS PO 09/09/21 17:00 09/09/21 16:07 Diphenhydramine HCl (Benadryl) 25 mg PRN Q6HRS PRN PO ITCHING 09/09/21 15:00 09/09/21 15:19 Pantoprazole Sodium (Protonix) 40 mg DAILYAC PO 09/09/21 16:00 09/10/21 06:16 Insulin Human Lispro (HumaLOG) 4 units TIDAC SQ 09/09/21 16:30 09/09/21 17:27 Justifications for Admission Other Justification ILDA BRIAN JASSO MD Sep 10, 2021 11:30
--- NOTE | 2021-09-10 12:52 | NUR ---
SS following for discharge planning. SS reviewed pt chart and discussed with pt RN. Pt is skilled rehabilitation resident from [facility], ; fax [phone]. COVID19 negative. PT/OT orders requested. Pt has outpatient dialysis at [facility], ; fax [phone], Friday, , and Friday. Pt on IV Lasix. Cardiology and Nephrology following. SS will continue to follow for discharge planning.
[2021-09-10] MEDS: DULoxetine HCL 30 MG CAPSULE.DR PO SCH (12:53)
[2021-09-10] MEDS: AMIODARONE HCL 200 MG TABLET. PO SCH (12:53)
[2021-09-10] MEDS: MAGNESIUM OXIDE 400 MG TABLET PO SCH (12:54)
[2021-09-10] MEDS: FERROUS SULFATE 325 MG TABLET. PO SCH (12:54)
[2021-09-10] MEDS: FOLIC/VIT B COMP W-C (RENAL) TABLET. PO SCH (12:54)
[2021-09-10] MEDS: ASPIRIN ENTERIC COATED 81 MG TABLET.DR. PO SCH (12:54)
[2021-09-10 14:06] VITALS: BP 135/55
--- NOTE | 2021-09-10 15:31 | PDOC ---
[facility] [facility] PROGRESS NOTE Date of Service DOS: DATE: 09/10/21 TIME: 15:29 Chief Complaint Chief Complaint Chest pain, ESRD -Admit to hospital -Nephro consult to resume dialysis -Cardiology consult -Trend troponins -Can maybe take extra fluid off with next dialysis session? -Home meds resumed as indicated History of Present Illness History of Present Illness The patient is a 76-year-old male. Patient had a 6-week admission to this facility from April to June of 2021; he was intubated for a protracted period and also had to start dialysis. He [facility] healthcare [facility] the [facility]. Mirza presents for evaluation of transient achy left-sided chest discomfort with radiation to the left neck, all with onset about 2 hours prior to arrival. He called an ambulance himself. He reports associated mild shortness of breath, not much worse than usual. Chest pain had resolved by the time the patient arrived to this facility. Currently patient complains only of chronic low back pain, about the same as usual. He denies associated fevers, nausea or vomiting, upper respiratory congestion/rhinorrhea, cough, sore throat, flank pain, midline back pain, dysuria (patient still makes urine daily), changes in bowel habits. He denies loss of bowel or bladder control, saddle anesthesia, new lower extremity weakness, numbness, tingling, new urinary retention. Patient is alert and pleasantly and appropriately interactive and in no acute distress with appropriate vital signs aside from elevated blood pressure upon initial evaluation here in the emergency department 09/09 Patient evaluated examined at bedside. Resting in bed. No complaints. Cards nephro following. 09/10 Patient evaluated examined at bedside. Appears going to undergo dialysis today. We will follow up again afterwards. Cards following. Vitals/I&O Vitals/I&O: Vital Signs Date Time Temp Pulse Resp B/P (MAP) Pulse Ox O2 Delivery O2 Flow Rate FiO2 09/10/21 14:06 98.6 60 16 135/55 (81) 100 Nasal Cannula 2.0 98.6 l I & O 09/09/21 09/09/21 09/10/21 15:00 23:00 07:00 Intake Total 760 ml 360 ml 120 ml Output Total 1100 ml 1450 ml 1200 ml Balance -340 ml -1090 ml -1080 ml Physical Exam General: Alert, Oriented X3, Cooperative, mild distress Heart: Regular rate Lungs: Clear, Other Abdomen: Normal bowel sounds Extremities: Normal pulses Skin: No significant lesion Labs Labs: Laboratory Tests Test 09/09/21 16:39 09/09/21 21:19 09/10/21 04:20 09/10/21 07:46 Glucose (Fingerstick) 143 mg/dL (70-99) 85 mg/dL (70-99) 109 mg/dL (70-99) Hemoglobin 8.4 g/dL (13.0-17.5) Sodium Level 141 mmol/L (136-145) Potassium Level 4.2 mmol/L (3.5-5.1) Chloride Level 102 mmol/L (98-107) Carbon Dioxide Level 33 mmol/L (21-32) Anion Gap 6 (6-14) Blood Urea Nitrogen 21 mg/dL (8-26) Creatinine 2.4 mg/dL (0.7-1.3) Estimated GFR (Cockcroft-Gault) 32.1 Glucose Level 129 mg/dL (70-99) Calcium Level 8.3 mg/dL (8.5-10.1) Phosphorus Level 5.7 mg/dL (2.6-4.7) Magnesium Level 2.0 mg/dL (1.8-2.4) Albumin 2.5 g/dL (3.4-5.0) Hepatitis B Surface Antigen Nonreactive (Nonreactive) Test 09/10/21 07:47 09/10/21 12:14 Glucose (Fingerstick) 109 mg/dL (70-99) 124 mg/dL (70-99) Assessment and Plan Assessmemt and Plan Problems Medical Problems: (1) Other chest pain Status: Acute Comment Review of Relevant I have reviewed the following items juanita (where applicable) has been applied. Medications: Current Medications Medications (Trade) Dose Ordered Sig/Jodie Route PRN Reason Start Time Stop Time Status Last Admin Dose Admin Amiodarone HCl (Cordarone) 200 mg DAILY PO 09/09/21 16:00 09/10/21 12:53 Duloxetine HCl (Cymbalta) 30 mg DAILY PO 09/09/21 16:00 09/10/21 12:53 Ferrous Sulfate (Feosol) 325 mg DAILY PO 09/09/21 16:00 09/10/21 12:54 Vitamin B Complex/ Vitamin C (Ana-Anjelica) 1 tab DAILY PO 09/09/21 16:00 09/10/21 12:54 Gabapentin (Neurontin) 100 mg QHS PO 09/09/21 21:00 09/09/21 21:30 Magnesium Oxide (Magnesium Oxide) 400 mg DAILY PO 09/09/21 16:00 09/10/21 12:54 Carvedilol (Coreg) 25 mg BIDWMEALS PO 09/09/21 17:00 09/09/21 16:07 Pantoprazole Sodium (Protonix) 40 mg DAILYAC PO 09/09/21 16:00 09/10/21 06:16 Insulin Human Lispro (HumaLOG) 4 units TIDAC SQ 09/09/21 16:30 09/10/21 13:06 Justifications for Admission Other Justification ILDA BRIAN JASSO MD Sep 10, 2021 15:31
--- NOTE | 2021-09-10 16:10 | PDOC ---
PROGRESS NOTES Date of Service DATE: 09/10/21 TIME: 16:09 Subjective Subjective Patient seen and examined Objective Objective Vital Signs Date Time Temp Pulse Resp B/P (MAP) Pulse Ox O2 Delivery O2 Flow Rate FiO2 09/10/21 14:06 98.6 60 16 135/55 (81) 100 Nasal Cannula 2.0 98.6 Intake and Output 09/10/21 07:00 Intake Total 1240 ml Output Total 3750 ml Balance -2510 ml Intake Oral 1240 ml Output Urine Total 3750 ml # Voids 3 # Bowel Movements 1 Physical Exam Abdomen: Normal bowel sounds Heart: Regular rate General: mild distress Lungs: Other (Mildly decreased breath sounds) Assessment Assessment Problems Medical Problems: (1) Other chest pain Status: Acute 1. Shortness of breath. The patient's shortness of breath continues to improve. Hemodialysis today. 2. Chest pain. Pain as noted above was mild. It resolved before being evaluated in the emergency room. His EKG shows no acute ischemic changes. Troponin x3 have been normal. We will continue present treatment. No chest pain overnight. 3. End-stage renal disease. As per the renal service. 4. History of paroxysmal atrial fibrillation. Patient remains in a sinus rhythm. 5. Hypertension. Under reasonable control. 6. Hyperlipidemia. Continue medications. 7. Diabetes mellitus. Comment Review of Relevant I have reviewed the following items juanita (where applicable) has been applied. Labs Laboratory Tests Test 09/09/21 03:40 09/09/21 07:32 09/09/21 11:27 09/09/21 16:39 White Blood Count 6.5 x10^3/uL (4.0-11.0) Red Blood Count 3.32 x10^6/uL (4.30-5.70) Hemoglobin 8.8 g/dL (13.0-17.5) Hematocrit 28.0 % (39.0-53.0) Mean Corpuscular Volume 85 fL (79-100) Mean Corpuscular Hemoglobin 27 pg (25-35) Mean Corpuscular Hemoglobin Concent 31 g/dL (31-37) Red Cell Distribution Width 17.4 % (11.5-14.5) Platelet Count 314 x10^3/uL (140-400) Neutrophils (%) (Auto) 54 % (31-73) Lymphocytes (%) (Auto) 27 % (24-48) Monocytes (%) (Auto) 11 % (0-9) Eosinophils (%) (Auto) 7 % (0-3) Basophils (%) (Auto) 1 % (0-3) Neutrophils # (Auto) 3.5 x10^3/uL (1.8-7.7) Lymphocytes # (Auto) 1.8 x10^3/uL (1.0-4.8) Monocytes # (Auto) 0.7 x10^3/uL (0.0-1.1) Eosinophils # (Auto) 0.4 x10^3/uL (0.0-0.7) Basophils # (Auto) 0.1 x10^3/uL (0.0-0.2) Sodium Level 141 mmol/L (136-145) Potassium Level 4.6 mmol/L (3.5-5.1) Chloride Level 104 mmol/L (98-107) Carbon Dioxide Level 31 mmol/L (21-32) Anion Gap 6 (6-14) Blood Urea Nitrogen 18 mg/dL (8-26) Creatinine 2.2 mg/dL (0.7-1.3) Estimated GFR (Cockcroft-Gault) 35.5 BUN/Creatinine Ratio 8 (6-20) Glucose Level 139 mg/dL (70-99) Calcium Level 8.5 mg/dL (8.5-10.1) Total Bilirubin 0.4 mg/dL (0.2-1.0) Aspartate Amino Transf (AST/SGOT) 13 U/L (15-37) Alanine Aminotransferase (ALT/SGPT) 11 U/L (16-63) Alkaline Phosphatase 57 U/L (46-116) Total Protein 6.1 g/dL (6.4-8.2) Albumin 2.5 g/dL (3.4-5.0) Albumin/Globulin Ratio 0.7 (1.0-1.7) Glucose (Fingerstick) 143 mg/dL (70-99) 143 mg/dL (70-99) Urine Collection Type Unknown Urine Color Yellow Urine Clarity Turbid Urine pH 6.5 (<5.0-8.0) Urine Specific Harmony 1.010 (1.000-1.030) Urine Protein 100 mg/dL (NEG-TRACE) Urine Glucose (UA) Negative mg/dL (NEG) Urine Ketones (Stick) Negative mg/dL (NEG) Urine Blood Moderate (NEG) Urine Nitrite Negative (NEG) Urine Bilirubin Negative (NEG) Urine Urobilinogen Dipstick 1.0 mg/dL (0.2 mg/dL) Urine Leukocyte Esterase Large (NEG) Urine RBC 6-10 /HPF (0-2) Urine WBC Tntc /HPF (0-4) Urine Bacteria Many /HPF (0-FEW) Test 09/09/21 21:19 09/10/21 04:20 09/10/21 07:46 09/10/21 07:47 Glucose (Fingerstick) 85 mg/dL (70-99) 109 mg/dL (70-99) 109 mg/dL (70-99) Hemoglobin 8.4 g/dL (13.0-17.5) Sodium Level 141 mmol/L (136-145) Potassium Level 4.2 mmol/L (3.5-5.1) Chloride Level 102 mmol/L (98-107) Carbon Dioxide Level 33 mmol/L (21-32) Anion Gap 6 (6-14) Blood Urea Nitrogen 21 mg/dL (8-26) Creatinine 2.4 mg/dL (0.7-1.3) Estimated GFR (Cockcroft-Gault) 32.1 Glucose Level 129 mg/dL (70-99) Calcium Level 8.3 mg/dL (8.5-10.1) Phosphorus Level 5.7 mg/dL (2.6-4.7) Magnesium Level 2.0 mg/dL (1.8-2.4) Albumin 2.5 g/dL (3.4-5.0) Hepatitis B Surface Antigen Nonreactive (Nonreactive) Test 09/10/21 12:14 Glucose (Fingerstick) 124 mg/dL (70-99) Laboratory Tests Test 09/09/21 16:39 09/09/21 21:19 09/10/21 04:20 09/10/21 07:46 Glucose (Fingerstick) 143 mg/dL (70-99) 85 mg/dL (70-99) 109 mg/dL (70-99) Hemoglobin 8.4 g/dL (13.0-17.5) Sodium Level 141 mmol/L (136-145) Potassium Level 4.2 mmol/L (3.5-5.1) Chloride Level 102 mmol/L (98-107) Carbon Dioxide Level 33 mmol/L (21-32) Anion Gap 6 (6-14) Blood Urea Nitrogen 21 mg/dL (8-26) Creatinine 2.4 mg/dL (0.7-1.3) Estimated GFR (Cockcroft-Gault) 32.1 Glucose Level 129 mg/dL (70-99) Calcium Level 8.3 mg/dL (8.5-10.1) Phosphorus Level 5.7 mg/dL (2.6-4.7) Magnesium Level 2.0 mg/dL (1.8-2.4) Albumin 2.5 g/dL (3.4-5.0) Hepatitis B Surface Antigen Nonreactive (Nonreactive) Test 09/10/21 07:47 09/10/21 12:14 Glucose (Fingerstick) 109 mg/dL (70-99) 124 mg/dL (70-99) Medications Current Medications Aspirin (Aspirin Chewable) 324 mg 1X ONCE PO Last administered on 09/07/21at 23:19; Start 09/07/21 at 23:30; Stop 09/07/21 at 23:31; Status DC Fentanyl Citrate (Fentanyl 2ml Vial) 25 mcg PRN Q15MIN PRN IV PAIN GREATER THAN 3/10 Last administered on 09/07/21at 23:22; Start 09/07/21 at 23:00; Stop 09/08/21 at 22:59; Status DC Ondansetron HCl (Zofran) 4 mg PRN Q8HRS PRN IVP NAUSEA/VOMITING 1ST CHOICE; Start 09/08/21 at 00:15; Stop 09/09/21 at 00:14; Status DC Fentanyl Citrate (Fentanyl 2ml Vial) 25 mcg PRN Q1HR PRN IVP SEVERE PAIN 7-10; Start 09/08/21 at 00:15; Stop 09/09/21 at 00:14; Status DC Amlodipine Besylate (Norvasc) 10 mg DAILY PO Last administered on 09/10/21at 12:54; Start 09/08/21 at 10:30 Aspirin (Ecotrin) 81 mg DAILYWBKFT PO Last administered on 09/10/21at 12:54; Start 09/08/21 at 10:30 Carvedilol (Coreg) 37.5 mg BIDWMEALS PO Last administered on 09/09/21at 09:09; Start 09/08/21 at 10:30; Stop 09/09/21 at 15:01; Status DC Gabapentin (Neurontin) 200 mg BID PO Last administered on 09/09/21at 09:08; Start 09/08/21 at 10:30; Stop 09/09/21 at 15:01; Status DC Montelukast Sodium (Singulair) 10 mg HS PO Last administered on 09/09/21at 21:30; Start 09/08/21 at 21:00 Polyethylene Glycol (miraLAX PACKET) 17 gm DAILY PO Last administered on 09/09/21at 09:09; Start 09/08/21 at 10:30 Atorvastatin Calcium (Lipitor) 80 mg HS PO Last administered on 09/09/21at 21:30; Start 09/08/21 at 21:00 Non-Formulary Medication (Fluticasone/ Salmeterol (Advair 100-50 Diskus)) 1 puff BID IH ; Start 09/08/21 at 21:00; Status UNV Ondansetron HCl (Zofran) 4 mg PRN Q6HRS PRN IVP NAUSEA/VOMITING; Start 09/08/21 at 09:45 Calcium Carbonate/ Glycine (Tums) 500 mg PRN Q3HRS PRN PO UPSET STOMACH; Start 09/08/21 at 09:45 Zolpidem Tartrate (Ambien) 5 mg PRN QHS PRN PO INSOMNIA, MAY REPEAT IN 1HR; Start 09/08/21 at 09:45 Info (Non-Icu Electrolyte Protocol) 1 ea PRN DAILY PRN MC SEE COMMENTS; Start 09/08/21 at 09:45 Oxycodone HCl (Roxicodone) 5 mg PRN Q4HRS PRN PO MILD PAIN, 1ST CHOICE; Start 09/08/21 at 09:45 Oxycodone HCl (Roxicodone) 10 mg PRN Q4HRS PRN PO MODERATE PAIN, SEVERE PAIN; Start 09/08/21 at 09:45 Acetaminophen (Tylenol) 650 mg PRN Q6HRS PRN PO Headaches, Temp > 101.5F; Start 09/08/21 at 09:45 Heparin Sodium (Porcine) (Heparin Sodium) 5,000 unit Q8HRS SQ Last administered on 09/10/21at 06:16; Start 09/08/21 at 14:00 Budesonide (Pulmicort) 0.5 mg RTBID NEB Last administered on 09/09/21at 18:33; Start 09/08/21 at 20:00 Albuterol Sulfate (Ventolin Neb Soln) 2.5 mg RTQID NEB Last administered on 09/10/21at 13:10; Start 09/08/21 at 12:00 Pharmacy Consult (C.diff Med Screen By Rx) 1 each 1X ONCE MC ; Start 09/09/21 at 01:15; Stop 09/09/21 at 01:16; Status DC Furosemide (Lasix) 80 mg TID IVP Last administered on 09/10/21at 13:00; Start 09/09/21 at 09:15 Epoetin Corey-epbx (RETACRIT for ESRD PTS) 10,000 unit MoWeFr@2100 SQ ; Start 09/10/21 at 21:00 Magnesium Sulfate 50 ml @ 25 mls/hr PRN DAILY PRN IV for Mag < 1.7 on am labs; Start 09/09/21 at 09:45 Acetaminophen (Tylenol) 650 mg PRN Q4HRS PRN PO TEMP OVER 100.4F OR MILD PAIN; Start 09/09/21 at 14:45; Status UNV Amiodarone HCl (Cordarone) 200 mg DAILY PO Last administered on 09/10/21at 12:53; Start 09/09/21 at 16:00 Bisacodyl (Dulcolax Supp) 10 mg PRN DAILY PRN RC CONSTIPATION; Start 09/09/21 at 14:45 Duloxetine HCl (Cymbalta) 30 mg DAILY PO Last administered on 09/10/21at 12:53; Start 09/09/21 at 16:00 Ferrous Sulfate (Feosol) 325 mg DAILY PO Last administered on 09/10/21at 12:54; Start 09/09/21 at 16:00 Vitamin B Complex/ Vitamin C (Ana-Anjelica) 1 tab DAILY PO Last administered on 09/10/21at 12:54; Start 09/09/21 at 16:00 Gabapentin (Neurontin) 100 mg QHS PO Last administered on 09/09/21at 21:30; Start 09/09/21 at 21:00 Acetaminophen/ Hydrocodone Bitart (Lortab 5/325) 1 tab PRN Q6HRS PRN PO MOD-SEV PAIN 1ST CHOICE; Start 09/09/21 at 14:45 Albuterol Sulfate (Ventolin Neb Soln) 2.5 mg PRN Q6HRS PRN NEB SHORTNESS OF BREATH; Start 09/09/21 at 15:00 Magnesium Oxide (Magnesium Oxide) 400 mg DAILY PO Last administered on 09/10/21at 12:54; Start 09/09/21 at 16:00 Montelukast Sodium (Singulair) 10 mg HS PO ; Start 09/09/21 at 21:00; Status UNV Carvedilol (Coreg) 25 mg BIDWMEALS PO Last administered on 09/09/21at 16:07; Start 09/09/21 at 17:00 Diphenhydramine HCl (Benadryl) 25 mg PRN Q6HRS PRN PO ITCHING Last administered on 09/09/21at 15:19; Start 09/09/21 at 15:00 Pantoprazole Sodium (Protonix) 40 mg DAILYAC PO Last administered on 09/10/21at 06:16; Start 09/09/21 at 16:00 Glycerin/ Hypromellose/ Polyethylene (Artificial Tears) 1 drop PRN QID PRN OU DRY EYE; Start 09/09/21 at 15:00 Lactic Acid (Lac-Hydrin) 1 gary PRN BID PRN TP ITCHING; Start 09/09/21 at 14:45 Insulin Human Lispro (HumaLOG) 4 units TIDAC SQ Last administered on 09/10/21at 13:06; Start 09/09/21 at 16:30 Sodium Chloride 1,000 ml @ 1,000 mls/hr Q1H PRN IV hypotension; Start 09/10/21 at 08:00; Stop 09/10/21 at 13:59; Status DC Sodium Chloride 1,000 ml @ 400 mls/hr Q2H30M PRN IV PATENCY; Start 09/10/21 at 08:00; Stop 09/10/21 at 19:59 Info (PHARMACY MONITORING -- do not chart) 1 each PRN DAILY PRN MC SEE COMMENTS; Start 09/10/21 at 08:00 Active Scripts Active Polyethylene Glycol 3350 17 Gm Powd.pack 17 Gm PO DAILY 14 Days Acetaminophen 325 Mg Tablet 650 Mg PO PRN Q4HRS PRN 14 Days Aspirin Ec (Aspirin) 81 Mg Tablet.dr 81 Mg PO DAILYWBKFT 30 Days Reported Montelukast Sodium Tablet (Montelukast Sodium) 10 Mg Tablet 10 Mg PO HS Renal-Anjelica Tablet (Folic Acid/Vit Bcomp,C) 0.8 Mg Tablet 1 Tab PO DAILY 30 Days Magnesium Oxide 400 Mg Tablet 1 Tab PO DAILY Hydrocodone-Apap 5-325 (Hydrocodone Bit/Acetaminophen) 1 Tab Tablet 1 Tab PO PRN Q6HRS PRN Feosol (Ferrous Sulfate) 325 Mg Tablet 325 Mg PO DAILY Cymbalta (Duloxetine Hcl) 30 Mg Capsule.dr 30 Mg PO DAILY Diphenhydramine Hcl 25 Mg Tablet 25 Mg PO PRN Q6HRS PRN Diclofenac Sodium 100 Gm Gel..gram. 100 Gm TP BID Artificial Tears Drops (Peg 400/Hypromellose/Glycerin) 15 Ml Drops 1 Drop EACHEYE QID 30 Days Amiodarone Hcl 200 Mg Tablet 1 Tab PO DAILY Humalog (Insulin Lispro) 100 Unit/1 Ml Cartridge Unknown Dose SQ TIDAC 4 units + SSI (2-12 Units) Protonix (Pantoprazole Sodium) 20 Mg Tablet.dr 20 Mg PO DAILY Carvedilol 25 Mg Tablet 25 Mg PO BIDWMEALS Gabapentin 100 Mg Capsule 100 Mg PO QHS Duoneb 0.5-3(2.5) Mg/3 Ml (Albuterol/Ipratropium) 3 Ml Ampul.neb 3 Ml NEB Q6HRS PRN Bisacodyl 10 Mg Supp.rect 10 Mg RC PRN DAILY PRN Lipitor (Atorvastatin Calcium) 80 Mg Tablet 80 Mg PO HS Lac-Hydrin Five (Ammonium Lactate) 226 Gm Lotion 1 Gary TP BID 30 Days Montelukast Sodium Tablet (Montelukast Sodium) 10 Mg Tablet 10 Mg PO HS Vitals/I & O Vital Sign - Last 24 Hours 09/09/21 09/09/21 09/09/21 09/09/21 18:38 19:45 19:50 23:00 Temp 99.2 99.2 99.2 99.2 Pulse 65 Resp 18 18 B/P (MAP) 145/70 (95) 156/62 (93) Pulse Ox 99 96 99 O2 Delivery Nasal Cannula Nasal Cannula Room Air Room Air O2 Flow Rate 2.0 3.0 09/10/21 09/10/21 09/10/21 09/10/21 03:22 06:20 07:00 08:00 Temp 99.4 96.6 99.4 96.6 Pulse 56 56 Resp 16 16 B/P (MAP) 158/80 (106) 135/56 (82) Pulse Ox 100 99 98 O2 Delivery Nasal Cannula Nasal Cannula Nasal Cannula Nasal Cannula O2 Flow Rate 2.0 2.0 2.0 3.0 09/10/21 09/10/21 09/10/21 09/10/21 12:53 12:54 13:10 14:06 Temp 98.6 98.6 Pulse 56 56 60 Resp 16 B/P (MAP) 135/56 135/56 135/55 (81) Pulse Ox 97 100 O2 Delivery Nasal Cannula Nasal Cannula O2 Flow Rate 2.0 2.0 Intake and Output 09/09/21 09/09/21 09/10/21 15:00 23:00 07:00 Intake Total 760 ml 360 ml 120 ml Output Total 1100 ml 1450 ml 1200 ml Balance -340 ml -1090 ml -1080 ml Justifications for Admission Other Justification ILDA VIDAL RODRIGUEZ MD Sep 10, 2021 16:10
--- NOTE | 2021-09-10 16:59 | PDOC ---
Renal-Progress Notes Subjective Notes Notes NO NEW COMPLAINTS History of Present Illness Hx of present illness STABLE Vitals Vitals Vital Signs Date Time Temp Pulse Resp B/P (MAP) Pulse Ox O2 Delivery O2 Flow Rate FiO2 09/10/21 16:14 97 Nasal Cannula 2.0 09/10/21 14:06 98.6 60 16 135/55 (81) 98.6 Weight Weight [ ] I.O. Intake and Output Intake and Output 09/10/21 06:59 Intake Total 1240 ml Output Total 3750 ml Balance -2510 ml Intake Oral 1240 ml Output Urine Total 3750 ml # Voids 3 # Bowel Movements 1 Labs Labs Laboratory Tests Test 09/09/21 21:19 09/10/21 04:20 09/10/21 07:46 09/10/21 07:47 Glucose (Fingerstick) 85 mg/dL (70-99) 109 mg/dL (70-99) 109 mg/dL (70-99) Hemoglobin 8.4 g/dL (13.0-17.5) Sodium Level 141 mmol/L (136-145) Potassium Level 4.2 mmol/L (3.5-5.1) Chloride Level 102 mmol/L (98-107) Carbon Dioxide Level 33 mmol/L (21-32) Anion Gap 6 (6-14) Blood Urea Nitrogen 21 mg/dL (8-26) Creatinine 2.4 mg/dL (0.7-1.3) Estimated GFR (Cockcroft-Gault) 32.1 Glucose Level 129 mg/dL (70-99) Calcium Level 8.3 mg/dL (8.5-10.1) Phosphorus Level 5.7 mg/dL (2.6-4.7) Magnesium Level 2.0 mg/dL (1.8-2.4) Albumin 2.5 g/dL (3.4-5.0) Hepatitis B Surface Antigen Nonreactive (Nonreactive) Test 09/10/21 12:14 09/10/21 16:46 Glucose (Fingerstick) 124 mg/dL (70-99) 193 mg/dL (70-99) Review of Systems Constitutional: yes: alert, oriented Ears/Nose/Throat: Yes: no symptom reported Eyes: Yes: no symptom reported Pulmonary: Yes no symptom reported, Yes dyspnea Cardiovascular: Yes no symptom reported Gastrointestional: Yes: no symptom reported Genitourinary: Yes: no symptom reported Musculoskeletal: Yes: no symptom reported Skin: Yes no symptom reported Psychiatric/Neurological: Yes: no symptom reported Endocrine: Yes: no symptom reported Physical Exam General Appearance: no apparent distress Skin: warm Respiratory: bilateral CTA Heart: S1S2 Abdomen: soft, bowel sounds present Genitourinary: bladder flat Neurology: alert, oriented Musculoskeletal: Other Assessment Assessment IMP [id number] ARM AV ACCESS ANEMIA NON COMPLIANCE-MISSED HIS OP HD ON FRIDAY VOLUME OVERLOAD DM II AFIB PLAN HD TODAY UF TO TW [facility] TO CONTINUE WILL FOLLOW JEANINE NEWTON MD Sep 10, 2021 16:59
[2021-09-10 19:15] VITALS: BP 133/60
[2021-09-10] MEDS: BUDESONIDE 0.5 MG/2 ML NEBU. NEB SCH ×2 (20:00→21:15)
[2021-09-10] MEDS: MONTELUKAST SODIUM 10 MG TABLET. PO SCH (21:29)
[2021-09-10] MEDS: EPOETIN ALFA-EPBX for ESRD 20,000 UNIT/ML VIAL. SQ SCH (21:29)
[2021-09-10] MEDS: ATORVASTATIN CALCIUM 40 MG TABLET. PO SCH (21:29)
[2021-09-10] MEDS: GABAPENTIN 100 MG CAPSULE. PO SCH (21:29)
[2021-09-10 23:15] VITALS: BP 142/58
[2021-09-11] MEDS: diphenhydrAMINE HCL 25 MG CAPSULE PO PRN (01:01)
[2021-09-11] MEDS: HYDROcodone/APAP 5/325MG 1 TAB TABLET PO PRN (01:02)
[2021-09-11 03:15] VITALS: BP 128/54
[2021-09-11 04:25] LABS: ALBUMIN 2.6 g/dL (3.4-5.0); CALCIUM 8.1 mg/dL (8.5-10.1); GFR 39.6; PHOSPHORUS 4.1 mg/dL (2.6-4.7)
[2021-09-11] MEDS: HEPARIN for SUB-Q USE 5,000 UNIT/ML VIAL. SQ SCH ×3 (05:53→21:05)
[2021-09-11] MEDS: PANTOPRAZOLE 40 MG TABLET.DR. PO SCH (05:53)
[2021-09-11 07:00] VITALS: BP 131/53
[2021-09-11] MEDS: INSULIN LISPRO 300 UNITS/3 ML VIAL. SQ SCH ×3 (07:30→16:30)
[2021-09-11] MEDS: BUDESONIDE 0.5 MG/2 ML NEBU. NEB SCH ×2 (08:38→20:50)
[2021-09-11] MEDS: ALBUTEROL SULFATE 2.5 MG/3 ML NEBU. NEB SCH ×4 (08:38→20:52)
[2021-09-11] MEDS: ASPIRIN ENTERIC COATED 81 MG TABLET.DR. PO SCH (10:21)
[2021-09-11] MEDS: DULoxetine HCL 30 MG CAPSULE.DR PO SCH (10:21)
[2021-09-11] MEDS: MAGNESIUM OXIDE 400 MG TABLET PO SCH (10:21)
[2021-09-11] MEDS: FERROUS SULFATE 325 MG TABLET. PO SCH (10:22)
[2021-09-11] MEDS: FOLIC/VIT B COMP W-C (RENAL) TABLET. PO SCH (10:22)
[2021-09-11] MEDS: CARVEDILOL 12.5 MG TABLET. PO SCH ×2 (10:22→18:22)
[2021-09-11] MEDS: POLYETHYLENE GLYCOL 3350 17 GM PACKET. PO SCH (10:23)
[2021-09-11] MEDS: AMIODARONE HCL 200 MG TABLET. PO SCH (10:23)
[2021-09-11] MEDS: FUROSEMIDE 40 MG/4 ML VIAL. IVP SCH ×3 (10:23→21:02)
[2021-09-11 11:00] VITALS: BP 133/53
--- NOTE | 2021-09-11 11:14 | PDOC ---
Renal-Progress Notes Subjective Notes Notes NO NEW COMPLAINTS History of Present Illness Hx of present illness STABLE Vitals Vitals Vital Signs Date Time Temp Pulse Resp B/P (MAP) Pulse Ox O2 Delivery O2 Flow Rate FiO2 09/11/21 10:29 56 09/11/21 08:40 96 Nasal Cannula 2.0 09/11/21 07:00 97.5 16 131/53 (79) 97.5 Weight Weight [ ] I.O. Intake and Output Intake and Output 09/11/21 07:00 Intake Total 1220 ml Output Total 1550 ml Balance -330 ml Intake Oral 1220 ml Output Urine Total 1550 ml # Bowel Movements 3 Labs Labs Laboratory Tests Test 09/10/21 12:14 09/10/21 16:46 09/10/21 21:00 09/11/21 03:12 Glucose (Fingerstick) 124 mg/dL (70-99) 193 mg/dL (70-99) 86 mg/dL (70-99) Sodium Level 137 mmol/L (136-145) Potassium Level 4.0 mmol/L (3.5-5.1) Chloride Level 100 mmol/L (98-107) Carbon Dioxide Level 34 mmol/L (21-32) Anion Gap 3 (6-14) Blood Urea Nitrogen 14 mg/dL (8-26) Creatinine 2.0 mg/dL (0.7-1.3) Estimated GFR (Cockcroft-Gault) 39.6 Glucose Level 147 mg/dL (70-99) Calcium Level 8.1 mg/dL (8.5-10.1) Phosphorus Level 4.1 mg/dL (2.6-4.7) Magnesium Level 1.9 mg/dL (1.8-2.4) Albumin 2.6 g/dL (3.4-5.0) Test 09/11/21 08:17 Glucose (Fingerstick) 125 mg/dL (70-99) Review of Systems Constitutional: yes: alert, oriented Ears/Nose/Throat: Yes: no symptom reported Eyes: Yes: no symptom reported Pulmonary: Yes no symptom reported, Yes dyspnea Cardiovascular: Yes no symptom reported Gastrointestional: Yes: no symptom reported Genitourinary: Yes: no symptom reported Musculoskeletal: Yes: no symptom reported Skin: Yes no symptom reported Psychiatric/Neurological: Yes: no symptom reported Endocrine: Yes: no symptom reported Physical Exam General Appearance: no apparent distress Skin: warm Respiratory: bilateral CTA Heart: S1S2 Abdomen: soft, bowel sounds present Genitourinary: bladder flat Neurology: alert, oriented Musculoskeletal: Other Assessment Assessment IMP [id number] ARM AV ACCESS ANEMIA NON COMPLIANCE-MISSED HIS OP HD ON FRIDAY VOLUME OVERLOAD DM II AFIB PLAN HD AGAIN TODAY UF TO TW [facility] TO CONTINUE WILL FOLLOW JEANINE NEWTON MD Sep 11, 2021 11:14
--- NOTE | 2021-09-11 11:26 | NUR ---
SS following up with discharge planning. SS reviewed pt chart and discussed with pt RN. Pt is skilled rehabilitation resident from [facility], ; fax [phone]. COVID19 negative. Pt is currently requiring oxygen at two liters nasal canula. PT/OT ordered. Pt has outpatient dialysis at [facility], ; fax [phone], Friday, , and Friday. Cardiology and Nephrology following. Pt on IV Lasix. SS will continue to follow for discharge planning.
--- NOTE | 2021-09-11 12:32 | PDOC ---
CARDIO Progress Notes Date and Time Date of Service 09/11/2021 Time of Evaluation 1210 Subjective Subjective: No Chest Pain, No shortness of breath, No Palpitations Vitals Vitals Vital Signs Date Time Temp Pulse Resp B/P (MAP) Pulse Ox O2 Delivery O2 Flow Rate FiO2 09/11/21 11:00 98.1 59 18 133/53 (79) 100 Room Air 98.1 09/11/21 08:40 2.0 Weight Weight [ ] Input and Output Intake and Output Intake and Output 09/11/21 07:00 Intake Total 1220 ml Output Total 1550 ml Balance -330 ml Intake Oral 1220 ml Output Urine Total 1550 ml # Bowel Movements 3 Laboratory Labs Laboratory Tests Test 09/10/21 16:46 09/10/21 21:00 09/11/21 03:12 09/11/21 08:17 Glucose (Fingerstick) 193 mg/dL (70-99) 86 mg/dL (70-99) 125 mg/dL (70-99) Sodium Level 137 mmol/L (136-145) Potassium Level 4.0 mmol/L (3.5-5.1) Chloride Level 100 mmol/L (98-107) Carbon Dioxide Level 34 mmol/L (21-32) Anion Gap 3 (6-14) Blood Urea Nitrogen 14 mg/dL (8-26) Creatinine 2.0 mg/dL (0.7-1.3) Estimated GFR (Cockcroft-Gault) 39.6 Glucose Level 147 mg/dL (70-99) Calcium Level 8.1 mg/dL (8.5-10.1) Phosphorus Level 4.1 mg/dL (2.6-4.7) Magnesium Level 1.9 mg/dL (1.8-2.4) Albumin 2.6 g/dL (3.4-5.0) Test 09/11/21 11:39 Glucose (Fingerstick) 253 mg/dL (70-99) Review of Systems Constitutional: yes: alert, oriented Ears/Nose/Throat: Yes: no symptom reported Eyes: Yes: no symptom reported Pulmonary: Yes no symptom reported, Yes dyspnea Cardiovascular: Yes no symptom reported Gastrointestional: Yes: no symptom reported Genitourinary: Yes: no symptom reported Musculoskeletal: Yes: no symptom reported Skin: Yes no symptom reported Psychiatric/Neurological: Yes: no symptom reported Endocrine: Yes: no symptom reported Physical Exam HEENT: Neck Supple W Full Motion Chest: Symmetric LUNGS: Other (diminished basess) Heart: RRR (SR) Abdomen: Soft N/T Extremities: No Calf Tenderness Neurology: alert, oriented, follow commands Assessment Assessment 1. Acute on chronic diastolic CHF 2. Atypical chest pain 3. End-stage renal disease 4. PAFIB: maintaining SR 5. HTN: controlled 6. DM2/HLP Recommendations 1. HF exacerbation due to HD noncompliance. Discussed adherance 2. Secondary prevention measures. Continue coreg at lower dose for rate/BP control 3. Amiodarone for rhythm maintenance,. Continue ASA likely poor candidate for anticoagulation 4. Outpt ischemic workup if none recent 5. Follow up in office with Dr. White on October 04 at 9:30 AM Justicifation of Admission Dx: Justifications for Admission: Justification of Admission Dx: Yes Aspiration Pneumonia: Hemodynamic Instability BON SAWANT APRN Sep 11, 2021 12:32
[2021-09-11] MEDS ORDERED: DIALYSIS PATIENT. MC PRN ×2 (14:30)
[2021-09-11] MEDS ORDERED: IV NORMAL SALINE 1000ML BAG 1,000 ML IV PRN ×2 (14:30)
[2021-09-11 15:00] VITALS: BP 141/55
[2021-09-11 19:15] VITALS: BP 133/56
[2021-09-11] MEDS: MONTELUKAST SODIUM 10 MG TABLET. PO SCH (21:01)
[2021-09-11] MEDS: ATORVASTATIN CALCIUM 40 MG TABLET. PO SCH (21:02)
[2021-09-11] MEDS: GABAPENTIN 100 MG CAPSULE. PO SCH (21:02)
--- NOTE | 2021-09-11 22:47 | PDOC ---
[facility] PROGRESS NOTE Date of Service DOS: DATE: 09/11/21 TIME: 22:46 Chief Complaint Chief Complaint Chest pain, ESRD -Admit to hospital -Nephro consult to resume dialysis -Cardiology consult -Trend troponins -Can maybe take extra fluid off with next dialysis session? -Home meds resumed as indicated History of Present Illness History of Present Illness The patient is a 76-year-old male. Patient had a 6-week admission to this facility from April to June of 2021; he was intubated for a protracted period and also had to start dialysis. [facility]. Mirza presents for evaluation of transient achy left-sided chest discomfort with radiation to the left neck, all with onset about 2 hours prior to arrival. He called an ambulance himself. He reports associated mild shortness of breath, not much worse than usual. Chest pain had resolved by the time the patient arrived to this facility. Currently patient complains only of chronic low back pain, about the same as usual. He denies associated fevers, nausea or vomiting, upper respiratory congestion/rhinorrhea, cough, sore throat, flank pain, midline back pain, dysuria (patient still makes urine daily), changes in bowel habits. He denies loss of bowel or bladder control, saddle anesthesia, new lower extremity weakness, numbness, tingling, new urinary retention. Patient is alert and pleasantly and appropriately interactive and in no acute distress with appropriate vital signs aside from elevated blood pressure upon initial evaluation here in the emergency department 09/09 Patient evaluated examined at bedside. Resting in bed. No complaints. Cards nephro following. 09/10 Patient evaluated examined at bedside. Appears going to undergo dialysis today. We will follow up again afterwards. Cards following. 09/11 Patient evaluated and examined at bedside. No cmoplaints. Dialysis again today. Will monitor fluid status. Vitals/I&O Vitals/I&O: Vital Signs Date Time Temp Pulse Resp B/P (MAP) Pulse Ox O2 Delivery O2 Flow Rate FiO2 09/11/21 20:54 97 Nasal Cannula 2.0 09/11/21 19:15 98.1 55 20 133/56 (81) 98.1 I & O 09/10/21 09/10/21 09/11/21 15:00 23:00 07:00 Intake Total 500 ml 720 ml Output Total 400 ml 850 ml 300 ml Balance -400 ml -350 ml 420 ml Physical Exam General: mild distress Heart: Regular rate Lungs: Clear, Other Abdomen: Normal bowel sounds Extremities: Normal pulses Skin: No significant lesion Labs Labs: Laboratory Tests Test 09/11/21 03:12 09/11/21 08:17 09/11/21 11:39 09/11/21 18:21 Sodium Level 137 mmol/L (136-145) Potassium Level 4.0 mmol/L (3.5-5.1) Chloride Level 100 mmol/L (98-107) Carbon Dioxide Level 34 mmol/L (21-32) Anion Gap 3 (6-14) Blood Urea Nitrogen 14 mg/dL (8-26) Creatinine 2.0 mg/dL (0.7-1.3) Estimated GFR (Cockcroft-Gault) 39.6 Glucose Level 147 mg/dL (70-99) Calcium Level 8.1 mg/dL (8.5-10.1) Phosphorus Level 4.1 mg/dL (2.6-4.7) Magnesium Level 1.9 mg/dL (1.8-2.4) Albumin 2.6 g/dL (3.4-5.0) Glucose (Fingerstick) 125 mg/dL (70-99) 253 mg/dL (70-99) 85 mg/dL (70-99) Test 09/11/21 21:10 Glucose (Fingerstick) 130 mg/dL (70-99) Assessment and Plan Assessmemt and Plan Problems Medical Problems: (1) Other chest pain Status: Acute Comment Review of Relevant I have reviewed the following items juanita (where applicable) has been applied. Medications: Current Medications Medications (Trade) Dose Ordered Sig/Jodie Route PRN Reason Start Time Stop Time Status Last Admin Dose Admin Carvedilol (Coreg) 12.5 mg BIDWMEALS PO 09/11/21 17:00 09/11/21 18:22 Justifications for Admission Other Justification BRIAN ERNST MD Sep 11, 2021 22:47
[2021-09-11 23:20] VITALS: BP 133/53
[2021-09-12] MEDS: oxyCODONE IR 5 MG TABLET PO PRN ×2 (01:10→22:24)
[2021-09-12] MEDS: diphenhydrAMINE HCL 25 MG CAPSULE PO PRN ×2 (01:10→22:23)
[2021-09-12 02:15] VITALS: BP 157/67
[2021-09-12] MEDS: PANTOPRAZOLE 40 MG TABLET.DR. PO SCH (05:39)
[2021-09-12] MEDS: HEPARIN for SUB-Q USE 5,000 UNIT/ML VIAL. SQ SCH ×3 (05:40→21:17)
[2021-09-12 07:15] VITALS: BP 157/73
[2021-09-12] MEDS: ALBUTEROL SULFATE 2.5 MG/3 ML NEBU. NEB SCH ×4 (07:41→20:23)
[2021-09-12] MEDS: BUDESONIDE 0.5 MG/2 ML NEBU. NEB SCH ×2 (07:41→20:23)
--- NOTE | 2021-09-12 08:16 | PDOC ---
BON SAWANT GERARDO 09/12/21 0816: CARDIO Progress Notes Date and Time Date of Service 09/12/2021 Time of Evaluation 1010 Subjective Subjective: No Chest Pain, No shortness of breath, No Palpitations Vitals Vitals Vital Signs Date Time Temp Pulse Resp B/P (MAP) Pulse Ox O2 Delivery O2 Flow Rate FiO2 09/12/21 07:41 100 Nasal Cannula 2.0 09/12/21 07:15 97.6 52 20 157/73 (101) 97.6 Weight Weight [ ] Input and Output Intake and Output Intake and Output 09/12/21 07:00 Intake Total 750 ml Output Total 250 ml Balance 500 ml Intake Oral 750 ml Output Urine Total 250 ml # Bowel Movements 3 Laboratory Labs Laboratory Tests Test 09/11/21 08:17 09/11/21 11:39 09/11/21 18:21 09/11/21 21:10 Glucose (Fingerstick) 125 mg/dL (70-99) 253 mg/dL (70-99) 85 mg/dL (70-99) 130 mg/dL (70-99) Test 09/12/21 07:11 Glucose (Fingerstick) 118 mg/dL (70-99) Microbiology Micro Microbiology 09/09/21 Urine Culture - Final, Complete 09/09/21 Antimicrobic Susceptibility - Final, Complete Review of Systems Constitutional: yes: alert, oriented Ears/Nose/Throat: Yes: no symptom reported Eyes: Yes: no symptom reported Pulmonary: Yes no symptom reported, Yes dyspnea Cardiovascular: Yes no symptom reported Gastrointestional: Yes: no symptom reported Genitourinary: Yes: no symptom reported Musculoskeletal: Yes: no symptom reported Skin: Yes no symptom reported Psychiatric/Neurological: Yes: no symptom reported Endocrine: Yes: no symptom reported Physical Exam HEENT: Neck Supple W Full Motion Chest: Symmetric LUNGS: Other (diminished basess) Heart: RRR (SR) Abdomen: Soft N/T Extremities: No Calf Tenderness Neurology: alert, oriented, follow commands Assessment Assessment 1. Acute on chronic diastolic CHF: compensated 2. Atypical chest pain 3. End-stage renal disease 4. PAFIB: maintaining SR 5. HTN: controlled 6. DM2/HLP Recommendations 1. HF exacerbation due to HD noncompliance. Discussed adherance 2. Secondary prevention measures. Continue coreg at lower dose for rate/BP control 3. Amiodarone for rhythm maintenance,. Continue ASA likely poor candidate for anticoagulation 4. Outpt ischemic workup if none recent 5. Follow up in office with Dr. White on October 04 at 9:30 AM Justicifation of Admission Dx: Justifications for Admission: Justification of Admission Dx: Yes Aspiration Pneumonia: Hemodynamic Instability VIDAL WHITE MD 09/12/21 1726: CARDIO Progress Notes Assessment Assessment Patient seen and examined I agree with our nurse practitioners assessment and plan. Acute on chronic diastolic CHF: compensated. Continue present treatment. Atypical chest pain. Continue present medical treatment. Outpatient follow-up and ischemia evaluation. End-stage renal disease. HD as per the renal service. PAFIB: maintaining SR on amiodarone. Continuing ASA. HTN: controlled DM2/HLP BON SAWANT APRN Sep 12, 2021 08:16 VIDAL WHITE MD Sep 12, 2021 17:26
[2021-09-12] MEDS: POLYETHYLENE GLYCOL 3350 17 GM PACKET. PO SCH (08:44)
[2021-09-12] MEDS: FOLIC/VIT B COMP W-C (RENAL) TABLET. PO SCH (08:46)
[2021-09-12] MEDS: DULoxetine HCL 30 MG CAPSULE.DR PO SCH (08:46)
[2021-09-12] MEDS: MAGNESIUM OXIDE 400 MG TABLET PO SCH (08:47)
[2021-09-12] MEDS: AMIODARONE HCL 200 MG TABLET. PO SCH (08:47)
[2021-09-12] MEDS: ASPIRIN ENTERIC COATED 81 MG TABLET.DR. PO SCH (08:47)
[2021-09-12] MEDS: FERROUS SULFATE 325 MG TABLET. PO SCH (08:47)
[2021-09-12] MEDS: CARVEDILOL 12.5 MG TABLET. PO SCH ×2 (08:48→17:26)
[2021-09-12] MEDS: FUROSEMIDE 40 MG/4 ML VIAL. IVP SCH ×3 (08:49→21:16)
[2021-09-12] MEDS: HYDROcodone/APAP 5/325MG 1 TAB TABLET PO PRN (08:49)
[2021-09-12] MEDS: INSULIN LISPRO 300 UNITS/3 ML VIAL. SQ SCH ×3 (09:10→17:28)
[2021-09-12 09:48] LABS: ALBUMIN 2.9 g/dL (3.4-5.0); CALCIUM 8.4 mg/dL (8.5-10.1); GFR 39.6; PHOSPHORUS 4.1 mg/dL (2.6-4.7); POTASSIUM 4.1 mmol/L (3.5-5.1)
[2021-09-12 11:15] VITALS: BP 139/56
--- NOTE | 2021-09-12 11:25 | PDOC ---
Renal-Progress Notes Subjective Notes Notes NO NEW COMPLAINTS History of Present Illness Hx of present illness STABLE Vitals Vitals Vital Signs Date Time Temp Pulse Resp B/P (MAP) Pulse Ox O2 Delivery O2 Flow Rate FiO2 09/12/21 11:15 97.3 58 20 139/56 (83) 97 Room Air 2.0 97.3 Weight Weight [ ] I.O. Intake and Output Intake and Output 09/12/21 07:00 Intake Total 750 ml Output Total 250 ml Balance 500 ml Intake Oral 750 ml Output Urine Total 250 ml # Bowel Movements 3 Labs Labs Laboratory Tests Test 09/11/21 11:39 09/11/21 18:21 09/11/21 21:10 09/12/21 07:11 Glucose (Fingerstick) 253 mg/dL (70-99) 85 mg/dL (70-99) 130 mg/dL (70-99) 118 mg/dL (70-99) Test 09/12/21 09:15 Sodium Level 138 mmol/L (136-145) Potassium Level 4.1 mmol/L (3.5-5.1) Chloride Level 99 mmol/L (98-107) Carbon Dioxide Level 33 mmol/L (21-32) Anion Gap 6 (6-14) Blood Urea Nitrogen 16 mg/dL (8-26) Creatinine 2.0 mg/dL (0.7-1.3) Estimated GFR (Cockcroft-Gault) 39.6 Glucose Level 152 mg/dL (70-99) Calcium Level 8.4 mg/dL (8.5-10.1) Phosphorus Level 4.1 mg/dL (2.6-4.7) Magnesium Level 1.9 mg/dL (1.8-2.4) Albumin 2.9 g/dL (3.4-5.0) Micro Micro Microbiology 09/09/21 Urine Culture - Final, Complete 09/09/21 Antimicrobic Susceptibility - Final, Complete Review of Systems Constitutional: yes: alert, oriented Ears/Nose/Throat: Yes: no symptom reported Eyes: Yes: no symptom reported Pulmonary: Yes no symptom reported, Yes dyspnea Cardiovascular: Yes no symptom reported Gastrointestional: Yes: no symptom reported Genitourinary: Yes: no symptom reported Musculoskeletal: Yes: no symptom reported Skin: Yes no symptom reported Psychiatric/Neurological: Yes: no symptom reported Endocrine: Yes: no symptom reported Physical Exam General Appearance: no apparent distress Skin: warm Respiratory: bilateral CTA Heart: S1S2 Abdomen: soft, bowel sounds present Genitourinary: bladder flat Neurology: alert, oriented, follow commands Musculoskeletal: Other Assessment Assessment IMP [id number] ARM AV ACCESS ANEMIA NON COMPLIANCE-MISSED HIS OP HD ON FRIDAY VOLUME OVERLOAD DM II AFIB PLAN HD TOMORROW UF TO TW BETTY TO CONTINUE WILL FOLLOW JEANINE NEWTON MD Sep 12, 2021 11:25
--- NOTE | 2021-09-12 12:41 | NUR ---
SS following up with discharge planning. SS reviewed pt chart and discussed with pt RN. Pt is skilled rehabilitation resident from [facility], ; fax [phone]. COVID19 negative. Pt is currently requiring oxygen at two liters nasal canula. PT/OT ordered. Pt has outpatient dialysis at [facility], ; fax [phone], Friday, , and Friday. Cardiology and Nephrology following. Pt on IV Lasix. [facility] needing PT/OT evaluations to submit for insurance authorization. SS will continue to follow for discharge planning.
--- NOTE | 2021-09-12 12:47 | PDOC ---
[employer] PROGRESS NOTE Date of Service DOS: DATE: 09/12/21 TIME: 12:46 Chief Complaint Chief Complaint Chest pain, ESRD -Admit to hospital -Nephro consult to resume dialysis -Cardiology consult -Trend troponins -Can maybe take extra fluid off with next dialysis session? -Home meds resumed as indicated History of Present Illness History of Present Illness 09/12/2021 Patient seen and examined Discussed with RN Chart reviewed The patient is a 76-year-old male. Patient had a 6-week admission to this facility from April to June of 2021; he was intubated for a protracted period and also had to start dialysis. [facility]. Mirza presents for evaluation of transient achy left-sided chest discomfort with radiation to the left neck, all with onset about 2 hours prior to arrival. He called an ambulance himself. He reports associated mild shortness of breath, not much worse than usual. Chest pain had resolved by the time the patient arrived to this facility. Currently patient complains only of chronic low back pain, about the same as usual. He denies associated fevers, nausea or vomiting, upper respiratory congestion/rhinorrhea, cough, sore throat, flank pain, midline back pain, dysuria (patient still makes urine daily), changes in bowel habits. He denies loss of bowel or bladder control, saddle anesthesia, new lower extremity weakness, numbness, tingling, new urinary retention. Patient is alert and pleasantly and appropriately interactive and in no acute distress with appropriate vital signs aside from elevated blood pressure upon initial evaluation here in the emergency department 09/09 Patient evaluated examined at bedside. Resting in bed. No complaints. Cards nephro following. 09/10 Patient evaluated examined at bedside. Appears going to undergo dialysis today. We will follow up again afterwards. Cards following. 09/11 Patient evaluated and examined at bedside. No cmoplaints. Dialysis again today. Will monitor fluid status. Vitals/I&O Vitals/I&O: Vital Signs Date Time Temp Pulse Resp B/P (MAP) Pulse Ox O2 Delivery O2 Flow Rate FiO2 09/12/21 11:15 97.3 58 20 139/56 (83) 97 Room Air 2.0 97.3 I & O 09/11/21 09/11/21 09/12/21 14:59 22:59 06:59 Intake Total 350 ml 400 ml Output Total 250 ml Balance 350 ml 150 ml Physical Exam General: mild distress Heart: Regular rate Lungs: Clear, Other Abdomen: Normal bowel sounds Extremities: Normal pulses Skin: No significant lesion Labs Labs: Laboratory Tests Test 09/11/21 18:21 09/11/21 21:10 09/12/21 07:11 09/12/21 09:15 Glucose (Fingerstick) 85 mg/dL (70-99) 130 mg/dL (70-99) 118 mg/dL (70-99) Sodium Level 138 mmol/L (136-145) Potassium Level 4.1 mmol/L (3.5-5.1) Chloride Level 99 mmol/L (98-107) Carbon Dioxide Level 33 mmol/L (21-32) Anion Gap 6 (6-14) Blood Urea Nitrogen 16 mg/dL (8-26) Creatinine 2.0 mg/dL (0.7-1.3) Estimated GFR (Cockcroft-Gault) 39.6 Glucose Level 152 mg/dL (70-99) Calcium Level 8.4 mg/dL (8.5-10.1) Phosphorus Level 4.1 mg/dL (2.6-4.7) Magnesium Level 1.9 mg/dL (1.8-2.4) Albumin 2.9 g/dL (3.4-5.0) Test 09/12/21 11:52 Glucose (Fingerstick) 97 mg/dL (70-99) Assessment and Plan Assessmemt and Plan Problems Medical Problems: (1) Other chest pain Status: Acute Chest pain, ESRD, noncompliance Recovered Covid-19 Plan Continue dialysis per nephrology Cardiac monitoring Home meds DVT prophylaxis Full code Trend lab Appreciate subspecialist input Comment Review of Relevant I have reviewed the following items juanita (where applicable) has been applied. Medications: Current Medications Medications (Trade) Dose Ordered Sig/Jodie Route PRN Reason Start Time Stop Time Status Last Admin Dose Admin Carvedilol (Coreg) 12.5 mg BIDWMEALS PO 09/11/21 17:00 09/12/21 08:48 Justifications for Admission Other Justification ILDA ELENI PEARL K III DO Sep 12, 2021 12:47
[2021-09-12 15:56] VITALS: BP 123/63
[2021-09-12 19:00] VITALS: BP 141/56
--- NOTE | 2021-09-12 19:45 | NUR ---
Pt in bed assessment completed vss poc explained pt denied pain at this time call light in reach will resume care and continue to monitor pt.
[2021-09-12] MEDS: GABAPENTIN 100 MG CAPSULE. PO SCH (21:16)
[2021-09-12] MEDS: MONTELUKAST SODIUM 10 MG TABLET. PO SCH (21:16)
[2021-09-12] MEDS: ATORVASTATIN CALCIUM 40 MG TABLET. PO SCH (21:16)
[2021-09-12] MEDS: EPOETIN ALFA-EPBX for ESRD 20,000 UNIT/ML VIAL. SQ SCH (21:24)
[2021-09-12 23:00] VITALS: BP 139/44
[2021-09-13 02:51] VITALS: BP 149/63
[2021-09-13] MEDS: diphenhydrAMINE HCL 25 MG CAPSULE PO PRN ×3 (04:37→21:35)
[2021-09-13] MEDS: PANTOPRAZOLE 40 MG TABLET.DR. PO SCH (06:14)
[2021-09-13] MEDS: HEPARIN for SUB-Q USE 5,000 UNIT/ML VIAL. SQ SCH ×3 (06:14→21:43)
[2021-09-13 06:17] VITALS: BP 135/67
[2021-09-13] MEDS: ALBUTEROL SULFATE 2.5 MG/3 ML NEBU. NEB SCH ×4 (07:22→20:58)
[2021-09-13] MEDS: BUDESONIDE 0.5 MG/2 ML NEBU. NEB SCH ×2 (07:23→20:57)
[2021-09-13] MEDS: INSULIN LISPRO 300 UNITS/3 ML VIAL. SQ SCH ×3 (07:30→18:06)
[2021-09-13 08:00] LABS: ALBUMIN 2.8 g/dL (3.4-5.0); CALCIUM 8.8 mg/dL (8.5-10.1); CREATININE 2.2 mg/dL (0.7-1.3); GFR 35.5; PHOSPHORUS 4.4 mg/dL (2.6-4.7); POTASSIUM 3.9 mmol/L (3.5-5.1)
[2021-09-13] MEDS: CARVEDILOL 12.5 MG TABLET. PO SCH ×2 (08:00→17:52)
--- NOTE | 2021-09-13 08:18 | PDOC ---
CARDIO Progress Notes Date and Time Date of Service 09/13/2021 Time of Evaluation 1040 Subjective Subjective: No Chest Pain, No shortness of breath, No Palpitations Vitals Vitals Vital Signs Date Time Temp Pulse Resp B/P (MAP) Pulse Ox O2 Delivery O2 Flow Rate FiO2 09/13/21 07:25 100 Nasal Cannula 2.0 09/13/21 06:17 99.1 59 18 135/67 (89) 99.1 Weight Weight [ ] Input and Output Intake and Output Intake and Output 09/13/21 07:00 Intake Total 1060 ml Output Total 2200 ml Balance -1140 ml Intake Oral 1060 ml Output Urine Total 2200 ml # Bowel Movements 2 Laboratory Labs Laboratory Tests Test 09/12/21 09:15 09/12/21 11:52 09/12/21 16:56 09/12/21 20:13 Sodium Level 138 mmol/L (136-145) Potassium Level 4.1 mmol/L (3.5-5.1) Chloride Level 99 mmol/L (98-107) Carbon Dioxide Level 33 mmol/L (21-32) Anion Gap 6 (6-14) Blood Urea Nitrogen 16 mg/dL (8-26) Creatinine 2.0 mg/dL (0.7-1.3) Estimated GFR (Cockcroft-Gault) 39.6 Glucose Level 152 mg/dL (70-99) Calcium Level 8.4 mg/dL (8.5-10.1) Phosphorus Level 4.1 mg/dL (2.6-4.7) Magnesium Level 1.9 mg/dL (1.8-2.4) Albumin 2.9 g/dL (3.4-5.0) Glucose (Fingerstick) 97 mg/dL (70-99) 152 mg/dL (70-99) 134 mg/dL (70-99) Test 09/13/21 06:20 09/13/21 07:53 Sodium Level 136 mmol/L (136-145) Potassium Level 3.9 mmol/L (3.5-5.1) Chloride Level 96 mmol/L (98-107) Carbon Dioxide Level 31 mmol/L (21-32) Anion Gap 9 (6-14) Blood Urea Nitrogen 22 mg/dL (8-26) Creatinine 2.2 mg/dL (0.7-1.3) Estimated GFR (Cockcroft-Gault) 35.5 Glucose Level 104 mg/dL (70-99) Calcium Level 8.8 mg/dL (8.5-10.1) Phosphorus Level 4.4 mg/dL (2.6-4.7) Magnesium Level 1.8 mg/dL (1.8-2.4) Albumin 2.8 g/dL (3.4-5.0) Glucose (Fingerstick) 112 mg/dL (70-99) Microbiology Micro Microbiology 09/09/21 Urine Culture - Final, Complete 09/09/21 Antimicrobic Susceptibility - Final, Complete Review of Systems Constitutional: yes: alert, oriented Ears/Nose/Throat: Yes: no symptom reported Eyes: Yes: no symptom reported Pulmonary: Yes no symptom reported, Yes dyspnea Cardiovascular: Yes no symptom reported Gastrointestional: Yes: no symptom reported Genitourinary: Yes: no symptom reported Musculoskeletal: Yes: no symptom reported Skin: Yes no symptom reported Psychiatric/Neurological: Yes: no symptom reported Endocrine: Yes: no symptom reported Physical Exam HEENT: Neck Supple W Full Motion Chest: Symmetric LUNGS: Other (diminished basess) Heart: RRR (SR) Abdomen: Soft N/T Extremities: No Calf Tenderness Neurology: alert, oriented, follow commands Assessment Assessment 1. Acute on chronic diastolic CHF: compensated 2. Atypical chest pain 3. End-stage renal disease 4. PAFIB: maintaining SR 5. HTN: controlled 6. DM2/HLP Recommendations 1. HF exacerbation due to HD noncompliance. Discussed adherance. HD today 2. Secondary prevention measures. Continue coreg at lower dose for rate/BP control 3. Amiodarone for rhythm maintenance,. Continue ASA likely poor candidate for anticoagulation 4. Outpt ischemic workup if none recent 5. Follow up in office with Dr. White on October 04 at 9:30 AM. SNU pending Justicifation of Admission Dx: Justifications for Admission: Justification of Admission Dx: Yes Aspiration Pneumonia: Hemodynamic Instability BON SAWANT CRUSHER FOREMAN Sep 13, 2021 08:18
[2021-09-13] MEDS ORDERED: DIALYSIS PATIENT. MC PRN (09:00)
[2021-09-13] MEDS ORDERED: IV NORMAL SALINE 1000ML BAG 1,000 ML IV PRN ×2 (09:00)
[2021-09-13] MEDS: FUROSEMIDE 40 MG/4 ML VIAL. IVP SCH ×3 (09:00→21:34)
--- NOTE | 2021-09-13 11:18 | PDOC ---
Renal-Progress Notes Subjective Notes Notes NO NEW COMPLAINTS, NOT SOB History of Present Illness Hx of present illness STABLE Vitals Vitals Vital Signs Date Time Temp Pulse Resp B/P (MAP) Pulse Ox O2 Delivery O2 Flow Rate FiO2 09/13/21 07:25 100 Nasal Cannula 2.0 09/13/21 06:17 99.1 59 18 135/67 (89) 99.1 Weight Weight [ ] I.O. Intake and Output Intake and Output 09/13/21 07:00 Intake Total 1060 ml Output Total 2200 ml Balance -1140 ml Intake Oral 1060 ml Output Urine Total 2200 ml # Bowel Movements 2 Labs Labs Laboratory Tests Test 09/12/21 11:52 09/12/21 16:56 09/12/21 20:13 09/13/21 06:20 Glucose (Fingerstick) 97 mg/dL (70-99) 152 mg/dL (70-99) 134 mg/dL (70-99) Sodium Level 136 mmol/L (136-145) Potassium Level 3.9 mmol/L (3.5-5.1) Chloride Level 96 mmol/L (98-107) Carbon Dioxide Level 31 mmol/L (21-32) Anion Gap 9 (6-14) Blood Urea Nitrogen 22 mg/dL (8-26) Creatinine 2.2 mg/dL (0.7-1.3) Estimated GFR (Cockcroft-Gault) 35.5 Glucose Level 104 mg/dL (70-99) Calcium Level 8.8 mg/dL (8.5-10.1) Phosphorus Level 4.4 mg/dL (2.6-4.7) Magnesium Level 1.8 mg/dL (1.8-2.4) Albumin 2.8 g/dL (3.4-5.0) Test 09/13/21 07:53 Glucose (Fingerstick) 112 mg/dL (70-99) Micro Micro Microbiology 09/09/21 Urine Culture - Final, Complete 09/09/21 Antimicrobic Susceptibility - Final, Complete Review of Systems Constitutional: yes: alert, oriented Ears/Nose/Throat: Yes: no symptom reported Eyes: Yes: no symptom reported Pulmonary: Yes no symptom reported, Yes dyspnea Cardiovascular: Yes no symptom reported Gastrointestional: Yes: no symptom reported Genitourinary: Yes: no symptom reported Musculoskeletal: Yes: no symptom reported Skin: Yes no symptom reported Psychiatric/Neurological: Yes: no symptom reported Endocrine: Yes: no symptom reported Physical Exam General Appearance: no apparent distress Skin: warm Respiratory: bilateral CTA Heart: S1S2 Abdomen: soft, bowel sounds present Genitourinary: bladder flat Neurology: alert, oriented, follow commands Musculoskeletal: Other Assessment Assessment IMP [id number] ARM AV ACCESS ANEMIA NON COMPLIANCE-MISSED HIS OP HD ON FRIDAY VOLUME OVERLOAD DM II PAFIB NON COMPLIANCE PLAN HD TODAY UF TO TW BETTY TO CONTINUE ENC COMPLIANCE WILL FOLLOW JEANINE NEWTON MD Sep 13, 2021 11:18
--- NOTE | 2021-09-13 11:35 | NUR ---
SS following up with discharge planning. SS reviewed pt chart and discussed with pt RN. Pt is skilled rehabilitation resident from [facility], ; fax [phone]. COVID19 negative. Pt is currently requiring oxygen at two liters nasal canula. PT/OT recommended jail unit. Pt has outpatient dialysis at [facility], ; fax [phone], Friday, , and Friday. Cardiology and Nephrology following. Pt on IV Lasix. SS phoned and faxed clinical updates and therapy notes to [facility]. [facility] submitting for insurance authorization. SS will continue to follow for discharge planning. Addendum: 09/13/21 at 1328 by LAKHWINDER CUETO SS Discharge orders received and phoned and faxed to [facility]. Insurance auth pending at this time. Pt's RN notified.
--- NOTE | 2021-09-13 12:20 | PDOC ---
[employer] PROGRESS NOTE Date of Service DOS: DATE: 09/13/21 TIME: 12:16 Chief Complaint Chief Complaint Chest pain ESRD History of Present Illness History of Present Illness 09/13/2021 Patient seen and examined - undergoing HD Chart reviewed Discussed with RN Patient doing better today. We discussed discharge to rehab but patient says he wants to go home. I think a short stay at rehab would be in his best interest. Vitals/I&O Vitals/I&O: Vital Signs Date Time Temp Pulse Resp B/P (MAP) Pulse Ox O2 Delivery O2 Flow Rate FiO2 09/13/21 07:25 100 Nasal Cannula 2.0 09/13/21 06:17 99.1 59 18 135/67 (89) 99.1 I & O 09/12/21 09/12/21 09/13/21 15:00 23:00 07:00 Intake Total 480 ml 360 ml 220 ml Output Total 850 ml 800 ml 550 ml Balance -370 ml -440 ml -330 ml Physical Exam General: No acute distress Heart: Regular rate Lungs: Clear Abdomen: Normal bowel sounds Extremities: Normal pulses Skin: No significant lesion Labs Labs: Laboratory Tests Test 09/12/21 16:56 09/12/21 20:13 09/13/21 06:20 09/13/21 07:53 Glucose (Fingerstick) 152 mg/dL (70-99) 134 mg/dL (70-99) 112 mg/dL (70-99) Sodium Level 136 mmol/L (136-145) Potassium Level 3.9 mmol/L (3.5-5.1) Chloride Level 96 mmol/L (98-107) Carbon Dioxide Level 31 mmol/L (21-32) Anion Gap 9 (6-14) Blood Urea Nitrogen 22 mg/dL (8-26) Creatinine 2.2 mg/dL (0.7-1.3) Estimated GFR (Cockcroft-Gault) 35.5 Glucose Level 104 mg/dL (70-99) Calcium Level 8.8 mg/dL (8.5-10.1) Phosphorus Level 4.4 mg/dL (2.6-4.7) Magnesium Level 1.8 mg/dL (1.8-2.4) Albumin 2.8 g/dL (3.4-5.0) Assessment and Plan Assessmemt and Plan Problems Medical Problems: (1) Other chest pain Status: Acute Chest pain, ESRD, noncompliance Recovered Covid-19 Plan Continue dialysis per nephrology Cardiac monitoring Home meds DVT prophylaxis Full code Trend lab Appreciate subspecialist input probable discharge to SNU Comment Review of Relevant I have reviewed the following items juanita (where applicable) has been applied. Medications: Current Medications Medications (Trade) Dose Ordered Sig/Jodie Route PRN Reason Start Time Stop Time Status Last Admin Dose Admin Levofloxacin (Levaquin) 250 mg Q48H PO 09/12/21 15:00 09/12/21 15:27 Justifications for Admission Other Justification ILDA ELENI PEARL III DO Sep 13, 2021 12:20
[2021-09-13] MEDS ORDERED: LEVO250T8 PO (13:02)
[2021-09-13] MEDS ORDERED: FURO-68 PO (13:02)
[2021-09-13] MEDS ORDERED: AMLO-187 PO (13:02)
[2021-09-13] MEDS ORDERED: CARV12.511 PO (13:02)
--- NOTE | 2021-09-13 13:04 | SNU/HH DC ---
DISCHARGE ORDERS DISCHARGE INFORMATION: FINAL DIAGNOSIS Problems Medical Problems: (1) Other chest pain Status: Acute CONDITION ON DISCHARGE: Stable CODE STATUS: Code Status: Full SENIOR CARE: SNF STAY <30 DAYS: Yes HOSPICE: HOSPICE: No HOSPICE EVAL & TREAT: No LTAC: ADMIT TO LTAC: No POST DISCHARGE ORDERS: ACTIVITY ORDERS: Activity as tolerated WEIGHT BEARING STATUS: As tolerated DIET AFTER DISCHARGE: Renal WOUND/INCISION CARE: Ice to area for comfort, Keep wound/cast CDI CHECKS AFTER DISCHARGE: CHECKS AFTER DISCHARGE: Check blood press - daily TREATMENT/EQUIPMENT ORDERS: ADAPTIVE EQUIPMENT NEEDED: None, Front wheeled walker Physical Therapy For: Evalulation/Treatment Occupational Therapy For: Evaluation/Treatment DISCHARGE MEDICATIONS: Home Meds Active Scripts Furosemide (LASIX) 40 Mg Tablet, 40 MG PO BID for . for 30 Days, #60 TAB Prov:CASTLE,NIAL K III DO 09/13/21 Amlodipine Besylate (AMLODIPINE BESYLATE) 10 Mg Tablet, 10 MG PO DAILY for . for 90 Days, #90 TAB Prov:CASTLE,NIAL K III DO 09/13/21 Carvedilol (CARVEDILOL ) 12.5 Mg Tablet, 12.5 MG PO BIDWMEALS for . for 90 Days, #180 TAB Prov:CASTLE,NIAL K III DO 09/13/21 Levofloxacin (LEVOFLOXACIN) 250 Mg Tablet, 250 MG PO Q48H for . for 10 Days, #5 TAB Prov:CASTLE,NIAL K III DO 09/13/21 Polyethylene Glycol 3350 (POLYETHYLENE GLYCOL 3350) 17 Gm Powd.pack, 17 GM PO DAILY for PREVENT CONSTIPATION for 14 Days, #14 PKT Prov:ALBA SWAIN MD 04/19/21 Acetaminophen (ACETAMINOPHEN) 325 Mg Tablet, 650 MG PO PRN Q4HRS PRN for TEMP OVER 100.4F OR MILD PAIN for 14 Days, #60 TAB Prov:ALBA SWAIN MD 04/19/21 Aspirin (ASPIRIN EC) 81 Mg Tablet.dr, 81 MG PO DAILYWBKFT for HEART HEALTH for 30 Days, #30 TAB.SR Prov:ALBA SWAIN MD 04/19/21 Reported Medications Montelukast Sodium (MONTELUKAST SODIUM TABLET ) 10 Mg Tablet, 10 MG PO HS for FOR ASTHMA, TAB 0 Refills 09/09/21 Folic Acid/Vit Bcomp,C (Renal-Anjelica Tablet) 0.8 Mg Tablet, 1 TAB PO DAILY for for 30 Days, #30 TAB 0 Refills 09/09/21 Magnesium Oxide (MAGNESIUM OXIDE) 400 Mg Tablet, 1 TAB PO DAILY for , #90 TAB 3 Refills 09/09/21 Hydrocodone Bit/Acetaminophen (HYDROCODONE-APAP 5-325 ) 1 Tab Tablet, 1 TAB PO PRN Q6HRS PRN for PAIN, TAB 0 Refills 09/09/21 Ferrous Sulfate (FEOSOL) 325 Mg Tablet, 325 MG PO DAILY for , TAB 09/09/21 Duloxetine Hcl (CYMBALTA) 30 Mg Capsule.dr, 30 MG PO DAILY for , CAP 09/09/21 Diphenhydramine Hcl (DIPHENHYDRAMINE HCL) 25 Mg Tablet, 25 MG PO PRN Q6HRS PRN for ITCHING, TAB 09/09/21 Diclofenac Sodium (DICLOFENAC SODIUM) 100 Gm Gel..gram., 100 GM TP BID for , EACH 09/09/21 Peg 400/Hypromellose/Glycerin (ARTIFICIAL TEARS DROPS) 15 Ml Drops, 1 DROP EACHEYE QID for for 30 Days, #15 ML 0 Refills 09/09/21 Amiodarone Hcl (AMIODARONE HCL) 200 Mg Tablet, 1 TAB PO DAILY for 09/09/21 Insulin Lispro (HUMALOG) 100 Unit/1 Ml Cartridge, SQ TIDAC for , EACH 4 units + SSI (2-12 Units) 09/09/21 Pantoprazole Sodium (PROTONIX) 20 Mg Tablet.dr, 20 MG PO DAILY for , TAB 09/09/21 Gabapentin (Gabapentin) 100 Mg Capsule, 100 MG PO QHS for , CAP 09/09/21 Ipratropium/Albuterol Sulfate (DUONEB 0.5-3(2.5) MG/3 ML) 3 Ml Ampul.neb, 3 ML NEB Q6HRS PRN for rx, EACH 07/04/21 Bisacodyl (BISACODYL) 10 Mg Supp.rect, 10 MG RC PRN DAILY PRN for CONSTIPATION, SUPP.RECT 0 Refills 07/04/21 Atorvastatin Calcium (LIPITOR) 80 Mg Tablet, 80 MG PO HS for FOR CHOLESTEROL, #3 0 TAB 0 Refills 07/04/21 Ammonium Lactate (Lac-Hydrin Five) 226 Gm Lotion, 1 CUAUHTEMOC TP BID for rx for 30 Days, #226 GM 0 Refills 07/04/21 Montelukast Sodium (MONTELUKAST SODIUM TABLET ) 10 Mg Tablet, 10 MG PO HS for FOR ASTHMA, TAB 0 Refills 04/17/21 Discontinued Reported Medications Carvedilol (CARVEDILOL) 25 Mg Tablet, 25 MG PO BIDWMEALS for CARDIAC, TAB 09/09/21 Pantoprazole Sodium (PROTONIX IV) 40 Mg Vial, 40 MG IV DAILY for rx, EACH 07/04/21 Carvedilol (COREG ) 12.5 Mg Tablet, 37.5 MG PO BIDWMEALS for CARDIAC, TAB 04/17/21 ELENI PEARL III DO Sep 13, 2021 13:04
[2021-09-13] MEDS: FOLIC/VIT B COMP W-C (RENAL) TABLET. PO SCH (13:22)
[2021-09-13] MEDS: MAGNESIUM OXIDE 400 MG TABLET PO SCH (13:22)
[2021-09-13] MEDS: ASPIRIN ENTERIC COATED 81 MG TABLET.DR. PO SCH (13:22)
[2021-09-13] MEDS: DULoxetine HCL 30 MG CAPSULE.DR PO SCH (13:23)
[2021-09-13] MEDS: AMIODARONE HCL 200 MG TABLET. PO SCH (13:23)
[2021-09-13] MEDS: FERROUS SULFATE 325 MG TABLET. PO SCH (13:23)
[2021-09-13] MEDS: POLYETHYLENE GLYCOL 3350 17 GM PACKET. PO SCH (13:24)
[2021-09-13] MEDS: LACTOBACILLUS RHAMNOSUS GG 1 CAPSULE. PO SCH ×2 (13:31→21:35)
[2021-09-13 15:00] VITALS: BP 150/57
[2021-09-13] MEDS ORDERED: LIDO:MAALOX 1:1 20 ML SINGLE DOSE. SWSW ONE (15:15)
--- NOTE | 2021-09-13 15:22 | EKG ---
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
--- NOTE | 2021-09-13 17:26 | DS ---
DATE OF DISCHARGE: 09/13/2021 ADMITTING DIAGNOSES: Chest pain, end-stage renal disease, noncompliance, recovered COVID-19. DISCHARGE DIAGNOSES: Resolving atypical chest pain; end-stage renal disease, on dialysis; recovered COVID-19; paroxysmal atrial fibrillation; hypertension and diabetes. CONSULTS: Cardiology and Nephrology. PROCEDURES: Dialysis. HOSPITAL COURSE: The patient is a pleasant older male who presented with chest pain. He has multiple comorbidities including end-stage renal disease, on dialysis. He was admitted. We did serial enzymes, serial EKGs. We consulted Cardiology and Nephrology. We got him dialyzed and today, I saw and examined him. He is at his baseline. He is doing well. We plan to discharge to snf. DISPOSITION: [facility]. ACTIVITY: As tolerated. DIET: Low sodium. DISCHARGE MEDICATIONS: Please see the MRAD. Amlodipine 10 a day, carvedilol 12.5 b.i.d., Lasix 40 b.i.d., Levaquin 250 every other day for 10 more days, p.r.n. Tylenol, amiodarone 200 a day, Lac-Hydrin, aspirin 81 a day, atorvastatin 80 a day, bisacodyl for constipation, p.r.n. Benadryl, Cymbalta 30 a day, iron 325 a day, folic acid 1 a day, gabapentin 100 at bedtime, p.r.n. hydrocodone, insulin 10 units of NovoLog with meals, DuoNebs, magnesium oxide 400 a day, Singulair 10 a day, Protonix 20 a day, artificial tears, and polyethylene glycol. TOTAL TIME: 33 minutes. EVE/GEOVANI DR: Williams TID: [id number]
--- NOTE | 2021-09-13 17:27 | NUR ---
Around 1445 patient starting having chest pain while working with therapy at the side of the bed. Patient states chest pain is sharp. BP 162/[address] Garcia & cardiology notified. EKG done & troponins ordered. GI cocktail administered as well. Patient currently resting/sleeping in bed & stated he is feeling better. Will continue to monitor.
[2021-09-13 19:00] VITALS: BP 147/64
--- NOTE | 2021-09-13 19:50 | NUR ---
Pt in bed assessment completed vss poc explained pt resting comfortable call light in reach will resume care and continue to monitor pt.
[2021-09-13] MEDS: ATORVASTATIN CALCIUM 40 MG TABLET. PO SCH (21:35)
[2021-09-13] MEDS: GABAPENTIN 100 MG CAPSULE. PO SCH (21:35)
[2021-09-13] MEDS: MONTELUKAST SODIUM 10 MG TABLET. PO SCH (21:46)
[2021-09-13 23:00] VITALS: BP 139/57
[2021-09-14 02:11] VITALS: BP 149/56
[2021-09-14] MEDS: oxyCODONE IR 5 MG TABLET PO PRN (02:14)
[2021-09-14] MEDS: diphenhydrAMINE HCL 25 MG CAPSULE PO PRN ×2 (04:02→18:06)
[2021-09-14 06:12] LABS: ALBUMIN 2.8 g/dL (3.4-5.0); CALCIUM 8.7 mg/dL (8.5-10.1); CREATININE 2.2 mg/dL (0.7-1.3); GFR 35.5; PHOSPHORUS 3.1 mg/dL (2.6-4.7); POTASSIUM 4.3 mmol/L (3.5-5.1)
[2021-09-14] MEDS: PANTOPRAZOLE 40 MG TABLET.DR. PO SCH (06:21)
[2021-09-14] MEDS: HEPARIN for SUB-Q USE 5,000 UNIT/ML VIAL. SQ SCH ×3 (06:24→20:54)
[2021-09-14 07:00] VITALS: BP 132/57
[2021-09-14] MEDS: POLYETHYLENE GLYCOL 3350 17 GM PACKET. PO SCH (08:11)
[2021-09-14] MEDS: ASPIRIN ENTERIC COATED 81 MG TABLET.DR. PO SCH (08:11)
[2021-09-14] MEDS: AMIODARONE HCL 200 MG TABLET. PO SCH (08:11)
[2021-09-14] MEDS: LACTOBACILLUS RHAMNOSUS GG 1 CAPSULE. PO SCH ×2 (08:12→20:51)
[2021-09-14] MEDS: FERROUS SULFATE 325 MG TABLET. PO SCH (08:12)
[2021-09-14] MEDS: DULoxetine HCL 30 MG CAPSULE.DR PO SCH (08:12)
[2021-09-14] MEDS: MAGNESIUM OXIDE 400 MG TABLET PO SCH (08:13)
[2021-09-14] MEDS: FOLIC/VIT B COMP W-C (RENAL) TABLET. PO SCH (08:13)
[2021-09-14] MEDS: INSULIN LISPRO 300 UNITS/3 ML VIAL. SQ SCH ×3 (08:28→18:12)
[2021-09-14] MEDS: ALBUTEROL SULFATE 2.5 MG/3 ML NEBU. NEB SCH ×4 (09:39→19:49)
[2021-09-14] MEDS: BUDESONIDE 0.5 MG/2 ML NEBU. NEB SCH ×2 (09:39→19:49)
--- NOTE | 2021-09-14 10:05 | PDOC ---
[employer] PROGRESS NOTE Date of Service DOS: DATE: 09/14/21 TIME: 10:04 Chief Complaint Chief Complaint Chest pain ESRD History of Present Illness History of Present Illness 09/14/2021 Patient seen and examined Chart reviewed Discussed with RN Patient says he is doing well today. Per RN, the patient was complaining of CP last night. None today. Awaiting discharge planning to SNU. Vitals/I&O Vitals/I&O: Vital Signs Date Time Temp Pulse Resp B/P (MAP) Pulse Ox O2 Delivery O2 Flow Rate FiO2 09/14/21 09:39 100 Nasal Cannula 2.0 09/14/21 08:12 62 132/57 09/14/21 07:00 98.6 16 98.6 I & O 09/13/21 09/13/21 09/14/21 15:00 23:00 07:00 Intake Total 220 ml 400 ml 620 ml Output Total 450 ml 450 ml Balance 220 ml -50 ml 170 ml Physical Exam General: No acute distress Heart: Regular rate Lungs: Clear Abdomen: Normal bowel sounds Extremities: Normal pulses Skin: No significant lesion Labs Labs: Laboratory Tests Test 09/13/21 13:20 09/13/21 15:57 09/13/21 17:09 09/13/21 18:50 Glucose (Fingerstick) 158 mg/dL (70-99) 159 mg/dL (70-99) Troponin I High Sensitivity 19 ng/L (4-75) 20 ng/L (4-75) Test 09/13/21 19:34 09/14/21 05:00 09/14/21 07:43 Glucose (Fingerstick) 143 mg/dL (70-99) 155 mg/dL (70-99) Sodium Level 138 mmol/L (136-145) Potassium Level 4.3 mmol/L (3.5-5.1) Chloride Level 99 mmol/L (98-107) Carbon Dioxide Level 32 mmol/L (21-32) Anion Gap 7 (6-14) Blood Urea Nitrogen 18 mg/dL (8-26) Creatinine 2.2 mg/dL (0.7-1.3) Estimated GFR (Cockcroft-Gault) 35.5 Glucose Level 114 mg/dL (70-99) Calcium Level 8.7 mg/dL (8.5-10.1) Phosphorus Level 3.1 mg/dL (2.6-4.7) Magnesium Level 2.0 mg/dL (1.8-2.4) Albumin 2.8 g/dL (3.4-5.0) Assessment and Plan Assessmemt and Plan Problems Medical Problems: (1) Other chest pain Status: Acute Chest pain, ESRD, noncompliance Recovered Covid-19 Plan: Continue dialysis per nephrology Cardiac monitoring Home meds DVT prophylaxis Full code Trend lab Appreciate subspecialist input probable discharge to SNU Comment Review of Relevant I have reviewed the following items juanita (where applicable) has been applied. Medications: Current Medications Medications (Trade) Dose Ordered Sig/Jodie Route PRN Reason Start Time Stop Time Status Last Admin Dose Admin Multi-Ingredient Mouthwash/Gargle (Gi Cocktail) 20 ml 1X ONCE SWSW 09/13/21 15:15 09/13/21 15:16 DC 09/13/21 15:18 Justifications for Admission Other Justification ILDA ELENI PEARL K III DO Sep 14, 2021 10:05
[2021-09-14 10:35] VITALS: BP 114/70
--- NOTE | 2021-09-14 11:44 | NUR ---
SS following up with discharge planning. SS reviewed pt chart and discussed with pt RN. Pt is currently requiring oxygen at two liters nasal canula. COVID19 negative. Pt on IV Lasix and PO Levaquin. PT/OT recommended retirement unit. Pt accepted at [facility], ; fax [phone]. Insurance denied pt for SNU. Peer to peer initiated and being scheduled with Dr. Garcia. Discharge order on the chart for retirement unit if denial is overturned. SS discussed with pt and pt's brother via phone. SS will continue to follow for discharge planning.
[2021-09-14] MEDS: FUROSEMIDE 40 MG/4 ML VIAL. IVP SCH ×2 (11:59→14:00)
--- NOTE | 2021-09-14 12:01 | PDOC ---
Renal-Progress Notes Subjective Notes Notes NO NEW COMPLIANCE History of Present Illness Hx of present illness STABLE Vitals Vitals Vital Signs Date Time Temp Pulse Resp B/P (MAP) Pulse Ox O2 Delivery O2 Flow Rate FiO2 09/14/21 11:37 100 Nasal Cannula 2.0 09/14/21 10:35 98.9 58 18 114/70 (85) 98.9 Weight Weight [ ] I.O. Intake and Output Intake and Output 09/14/21 07:00 Intake Total 1240 ml Output Total 900 ml Balance 340 ml Intake Oral 1240 ml Output Urine Total 900 ml # Bowel Movements 1 Labs Labs Laboratory Tests Test 09/13/21 13:20 09/13/21 15:57 09/13/21 17:09 09/13/21 18:50 Glucose (Fingerstick) 158 mg/dL (70-99) 159 mg/dL (70-99) Troponin I High Sensitivity 19 ng/L (4-75) 20 ng/L (4-75) Test 09/13/21 19:34 09/14/21 05:00 09/14/21 07:43 09/14/21 11:17 Glucose (Fingerstick) 143 mg/dL (70-99) 155 mg/dL (70-99) 170 mg/dL (70-99) Sodium Level 138 mmol/L (136-145) Potassium Level 4.3 mmol/L (3.5-5.1) Chloride Level 99 mmol/L (98-107) Carbon Dioxide Level 32 mmol/L (21-32) Anion Gap 7 (6-14) Blood Urea Nitrogen 18 mg/dL (8-26) Creatinine 2.2 mg/dL (0.7-1.3) Estimated GFR (Cockcroft-Gault) 35.5 Glucose Level 114 mg/dL (70-99) Calcium Level 8.7 mg/dL (8.5-10.1) Phosphorus Level 3.1 mg/dL (2.6-4.7) Magnesium Level 2.0 mg/dL (1.8-2.4) Albumin 2.8 g/dL (3.4-5.0) Micro Micro Microbiology 09/09/21 Urine Culture - Final, Complete 09/09/21 Antimicrobic Susceptibility - Final, Complete Review of Systems Constitutional: yes: alert, oriented Ears/Nose/Throat: Yes: no symptom reported Eyes: Yes: no symptom reported Pulmonary: Yes no symptom reported, Yes dyspnea Cardiovascular: Yes no symptom reported Gastrointestional: Yes: no symptom reported Genitourinary: Yes: no symptom reported Musculoskeletal: Yes: no symptom reported Skin: Yes no symptom reported Psychiatric/Neurological: Yes: no symptom reported Endocrine: Yes: no symptom reported Physical Exam General Appearance: no apparent distress Skin: warm Respiratory: bilateral CTA Heart: S1S2 Abdomen: soft, bowel sounds present Genitourinary: bladder flat Neurology: alert, oriented, follow commands Musculoskeletal: Other Assessment Assessment IMP [id number] ARM AV ACCESS ANEMIA NON COMPLIANCE-MISSED HIS OP HD ON FRIDAY VOLUME OVERLOAD DM II PAFIB NON COMPLIANCE PLAN HD TOMORROW BETTY TO CONTINUE ENC COMPLIANCE WILL FOLLOW JEANINE NEWTON MD Sep 14, 2021 12:01
[2021-09-14] MEDS: CARVEDILOL 12.5 MG TABLET. PO SCH ×2 (12:08→17:00)
--- NOTE | 2021-09-14 12:29 | PDOC ---
BON SAWANT BAR WELDER 09/14/21 1229: CARDIO Progress Notes Date and Time Date of Service 09/14/2021 Time of Evaluation 1155 Subjective Subjective: No Chest Pain, No shortness of breath, No Palpitations Vitals Vitals Vital Signs Date Time Temp Pulse Resp B/P (MAP) Pulse Ox O2 Delivery O2 Flow Rate FiO2 09/14/21 12:08 58 140/63 09/14/21 11:37 100 Nasal Cannula 2.0 09/14/21 10:35 98.9 18 98.9 Weight Weight [ ] Input and Output Intake and Output Intake and Output 09/14/21 07:00 Intake Total 1240 ml Output Total 900 ml Balance 340 ml Intake Oral 1240 ml Output Urine Total 900 ml # Bowel Movements 1 Laboratory Labs Laboratory Tests Test 09/13/21 13:20 09/13/21 15:57 09/13/21 17:09 09/13/21 18:50 Glucose (Fingerstick) 158 mg/dL (70-99) 159 mg/dL (70-99) Troponin I High Sensitivity 19 ng/L (4-75) 20 ng/L (4-75) Test 09/13/21 19:34 09/14/21 05:00 09/14/21 07:43 09/14/21 11:17 Glucose (Fingerstick) 143 mg/dL (70-99) 155 mg/dL (70-99) 170 mg/dL (70-99) Sodium Level 138 mmol/L (136-145) Potassium Level 4.3 mmol/L (3.5-5.1) Chloride Level 99 mmol/L (98-107) Carbon Dioxide Level 32 mmol/L (21-32) Anion Gap 7 (6-14) Blood Urea Nitrogen 18 mg/dL (8-26) Creatinine 2.2 mg/dL (0.7-1.3) Estimated GFR (Cockcroft-Gault) 35.5 Glucose Level 114 mg/dL (70-99) Calcium Level 8.7 mg/dL (8.5-10.1) Phosphorus Level 3.1 mg/dL (2.6-4.7) Magnesium Level 2.0 mg/dL (1.8-2.4) Albumin 2.8 g/dL (3.4-5.0) Microbiology Micro Microbiology 09/09/21 Urine Culture - Final, Complete 09/09/21 Antimicrobic Susceptibility - Final, Complete Review of Systems Constitutional: yes: alert, oriented Ears/Nose/Throat: Yes: no symptom reported Eyes: Yes: no symptom reported Pulmonary: Yes no symptom reported, Yes dyspnea Cardiovascular: Yes no symptom reported Gastrointestional: Yes: no symptom reported Genitourinary: Yes: no symptom reported Musculoskeletal: Yes: no symptom reported Skin: Yes no symptom reported Psychiatric/Neurological: Yes: no symptom reported Endocrine: Yes: no symptom reported Physical Exam HEENT: Neck Supple W Full Motion Chest: Symmetric LUNGS: Other (diminished basess) Heart: RRR (SR) Abdomen: Soft N/T Extremities: No Calf Tenderness Neurology: alert, oriented, follow commands Assessment Assessment 1. Acute on chronic diastolic CHF: compensated 2. Atypical chest pain: had episodes yesterday afternoon relieved by GI cocktail 3. End-stage renal disease 4. PAFIB: maintaining SR 5. HTN: controlled 6. DM2/HLP Recommendations 1. HF exacerbation due to HD noncompliance. Discussed adherance. HD today 2. Secondary prevention measures. Continue coreg at lower dose for rate/BP control 3. Amiodarone for rhythm maintenance,. Continue ASA likely poor candidate for anticoagulation 4. Outpt ischemic workup if none recent 5. Follow up in office with Dr. White on October 04 at 9:30 AM. SNU pending 6. Continue PPI Justicifation of Admission Dx: Justifications for Admission: Justification of Admission Dx: Yes Aspiration Pneumonia: Hemodynamic Instability VIDAL WHITE MD 09/14/212033: CARDIO Progress Notes Assessment Assessment Patient seen and examined I agree with our data analysis manager assessment and plan. Continued slow improvement. Continuing present treatment. BON SAWANT BAR WELDER Sep 14, 2021 12:29 VIDAL WHITE MD Sep 14, 2021 20:34
[2021-09-14 15:00] VITALS: BP 132/58
[2021-09-14] MEDS: HYDROcodone/APAP 5/325MG 1 TAB TABLET PO PRN (18:07)
[2021-09-14 18:26] VITALS: BP 102/57
[2021-09-14] MEDS: GABAPENTIN 100 MG CAPSULE. PO SCH (20:51)
[2021-09-14] MEDS: ATORVASTATIN CALCIUM 40 MG TABLET. PO SCH (20:51)
[2021-09-14] MEDS: MONTELUKAST SODIUM 10 MG TABLET. PO SCH (20:51)
[2021-09-14] MEDS: EPOETIN ALFA-EPBX for ESRD 20,000 UNIT/ML VIAL. SQ SCH (20:52)
[2021-09-14 23:00] VITALS: BP 144/54
[2021-09-15 02:46] VITALS: BP 138/55
[2021-09-15 04:58] LABS: ALBUMIN 2.7 g/dL (3.4-5.0); CALCIUM 8.6 mg/dL (8.5-10.1); CREATININE 2.7 mg/dL (0.7-1.3); PHOSPHORUS 3.2 mg/dL (2.6-4.7)
[2021-09-15] MEDS: HEPARIN for SUB-Q USE 5,000 UNIT/ML VIAL. SQ SCH ×3 (05:50→20:08)
[2021-09-15] MEDS: HYDROcodone/APAP 5/325MG 1 TAB TABLET PO PRN ×2 (05:51→07:45)
[2021-09-15] MEDS: diphenhydrAMINE HCL 25 MG CAPSULE PO PRN ×2 (05:54→14:28)
[2021-09-15] MEDS ORDERED: DIALYSIS PATIENT. MC PRN (07:00)
[2021-09-15] MEDS ORDERED: IV NORMAL SALINE 1000ML BAG 1,000 ML IV PRN ×2 (07:00)
[2021-09-15] MEDS: BUDESONIDE 0.5 MG/2 ML NEBU. NEB SCH ×2 (07:15→19:51)
[2021-09-15] MEDS: ALBUTEROL SULFATE 2.5 MG/3 ML NEBU. NEB SCH ×4 (07:15→19:51)
[2021-09-15] MEDS: INSULIN LISPRO 300 UNITS/3 ML VIAL. SQ SCH ×3 (07:30→16:30)
[2021-09-15] MEDS: CARVEDILOL 12.5 MG TABLET. PO SCH ×2 (08:00→17:00)
[2021-09-15] MEDS: LACTOBACILLUS RHAMNOSUS GG 1 CAPSULE. PO SCH ×2 (08:19→20:09)
--- NOTE | 2021-09-15 13:07 | PDOC ---
[employer] PROGRESS NOTE Date of Service DOS: DATE: 09/15/21 TIME: 13:06 Chief Complaint Chief Complaint Chest pain ESRD on dialysis History of Present Illness History of Present Illness 09/15/2020 Patient seen exam He just got back from dialysis Chart reviewed Discussed with RN 09/14/2021 Patient seen and examined Chart reviewed Discussed with RN Patient says he is doing well today. Per RN, the patient was complaining of CP last night. None today. Awaiting discharge planning to SNU. Vitals/I&O Vitals/I&O: Vital Signs Date Time Temp Pulse Resp B/P (MAP) Pulse Ox O2 Delivery O2 Flow Rate FiO2 09/15/21 08:00 Nasal Cannula 3.0 09/15/21 07:16 98 09/15/21 02:46 97.9 59 16 138/55 (82) 97.9 I & O 09/14/21 09/14/21 09/15/21 15:00 23:00 07:00 Intake Total 398 ml 350 ml 0 ml Output Total 201 ml 401 ml 200 ml Balance 197 ml -51 ml -200 ml Physical Exam General: No acute distress Heart: Regular rate Lungs: Clear Abdomen: Normal bowel sounds Extremities: Normal pulses Skin: No significant lesion Labs Labs: Laboratory Tests Test 09/14/21 18:05 09/14/21 20:39 09/15/21 04:00 09/15/21 11:45 Glucose (Fingerstick) 220 mg/dL (70-99) 173 mg/dL (70-99) 134 mg/dL (70-99) Sodium Level 137 mmol/L (136-145) Potassium Level 4.0 mmol/L (3.5-5.1) Chloride Level 98 mmol/L (98-107) Carbon Dioxide Level 32 mmol/L (21-32) Anion Gap 7 (6-14) Blood Urea Nitrogen 27 mg/dL (8-26) Creatinine 2.7 mg/dL (0.7-1.3) Estimated GFR (Cockcroft-Gault) 28.0 Glucose Level 110 mg/dL (70-99) Calcium Level 8.6 mg/dL (8.5-10.1) Phosphorus Level 3.2 mg/dL (2.6-4.7) Albumin 2.7 g/dL (3.4-5.0) Assessment and Plan Assessmemt and Plan Problems Medical Problems: (1) Other chest pain Status: Acute Chest pain, ESRD, noncompliance Recovered Covid-19 Plan Continue dialysis per nephrology Cardiac monitoring Home meds DVT prophylaxis Full code Trend lab Appreciate subspecialist input probable discharge to SNU soon Comment Review of Relevant I have reviewed the following items juanita (where applicable) has been applied. Justifications for Admission Other Justification ELENI RENTERIA III DO Sep 15, 2021 13:07
[2021-09-15] MEDS: AMIODARONE HCL 200 MG TABLET. PO SCH (14:27)
[2021-09-15] MEDS: PANTOPRAZOLE 40 MG TABLET.DR. PO SCH (14:27)
[2021-09-15] MEDS: DULoxetine HCL 30 MG CAPSULE.DR PO SCH (14:28)
[2021-09-15] MEDS: MAGNESIUM OXIDE 400 MG TABLET PO SCH (14:28)
[2021-09-15] MEDS: FERROUS SULFATE 325 MG TABLET. PO SCH (14:28)
[2021-09-15] MEDS: FUROSEMIDE 80 MG TABLET. PO SCH (14:28)
[2021-09-15] MEDS: FOLIC/VIT B COMP W-C (RENAL) TABLET. PO SCH (14:28)
[2021-09-15] MEDS: POLYETHYLENE GLYCOL 3350 17 GM PACKET. PO SCH (14:28)
[2021-09-15] MEDS: ASPIRIN ENTERIC COATED 81 MG TABLET.DR. PO SCH (14:28)
[2021-09-15 15:00] VITALS: BP 143/58
--- NOTE | 2021-09-15 15:29 | PDOC ---
Renal-Progress Notes Subjective Notes Notes NO NEW COMPLAINTS, WOULD LIKE TO GO HOME History of Present Illness Hx of present illness WEAK AND DECONDITIONED Vitals Vitals Vital Signs Date Time Temp Pulse Resp B/P (MAP) Pulse Ox O2 Delivery O2 Flow Rate FiO2 09/15/21 14:28 59 138/55 09/15/21 08:00 Nasal Cannula 3.0 09/15/21 07:45 98 09/15/21 02:46 97.9 16 97.9 Weight Weight [ ] I.O. Intake and Output Intake and Output 09/15/21 07:00 Intake Total 748 ml Output Total 802 ml Balance -54 ml Intake Oral 748 ml Output Urine Total 800 ml Stool Total 2 ml # Bowel Movements 1 Labs Labs Laboratory Tests Test 09/14/21 18:05 09/14/21 20:39 09/15/21 04:00 09/15/21 11:45 Glucose (Fingerstick) 220 mg/dL (70-99) 173 mg/dL (70-99) 134 mg/dL (70-99) Sodium Level 137 mmol/L (136-145) Potassium Level 4.0 mmol/L (3.5-5.1) Chloride Level 98 mmol/L (98-107) Carbon Dioxide Level 32 mmol/L (21-32) Anion Gap 7 (6-14) Blood Urea Nitrogen 27 mg/dL (8-26) Creatinine 2.7 mg/dL (0.7-1.3) Estimated GFR (Cockcroft-Gault) 28.0 Glucose Level 110 mg/dL (70-99) Calcium Level 8.6 mg/dL (8.5-10.1) Phosphorus Level 3.2 mg/dL (2.6-4.7) Albumin 2.7 g/dL (3.4-5.0) Micro Micro Microbiology 09/09/21 Urine Culture - Final, Complete 09/09/21 Antimicrobic Susceptibility - Final, Complete Review of Systems Constitutional: yes: alert, oriented Ears/Nose/Throat: Yes: no symptom reported Eyes: Yes: no symptom reported Pulmonary: Yes no symptom reported, Yes dyspnea Cardiovascular: Yes no symptom reported Gastrointestional: Yes: no symptom reported Genitourinary: Yes: no symptom reported Musculoskeletal: Yes: no symptom reported Skin: Yes no symptom reported Psychiatric/Neurological: Yes: no symptom reported Endocrine: Yes: no symptom reported Physical Exam General Appearance: no apparent distress Skin: warm Respiratory: bilateral CTA Heart: S1S2 Abdomen: soft, bowel sounds present Genitourinary: bladder flat Neurology: alert, oriented, follow commands Musculoskeletal: Other Assessment Assessment IMP [id number] ARM AV ACCESS ANEMIA NON COMPLIANCE-MISSED HIS OP HD ON FRIDAY VOLUME OVERLOAD DM II PAFIB NON COMPLIANCE PLAN HD TODAY UF TO TW BETTY TO CONTINUE ENC COMPLIANCE WILL FOLLOW JEANINE NEWTON MD Sep 15, 2021 15:29
--- NOTE | 2021-09-15 15:35 | PDOC ---
PROGRESS NOTES Date of Service: DATE: 09/15/21 TIME: 15:35 Subjective Subjective c/o itching, no CP/SOA Objective Objective Vital Signs Date Time Temp Pulse Resp B/P (MAP) Pulse Ox O2 Delivery O2 Flow Rate FiO2 09/15/21 14:28 59 138/55 09/15/21 08:00 Nasal Cannula 3.0 09/15/21 07:45 98 09/15/21 02:46 97.9 16 97.9 Intake and Output 09/15/21 07:00 Intake Total 748 ml Output Total 802 ml Balance -54 ml Intake Oral 748 ml Output Urine Total 800 ml Stool Total 2 ml # Bowel Movements 1 Physical Exam Abdomen: Normal bowel sounds Heart: Regular rate Extremities: Normal pulses General: No acute distress Lungs: Other (Mildly decreased breath sounds) Skin: No significant lesion Assessment Assessment 1. Acute on chronic diastolic CHF: compensated 2. Atypical chest pain: relieved by GI cocktail 3. End-stage renal disease 4. PAFIB: maintaining SR 5. HTN: controlled 6. DM2/HLP Recommendations 1. HF exacerbation due to HD noncompliance. Discussed adherance. HD today 2. Secondary prevention measures. Continue coreg at lower dose for rate/BP control 3. Amiodarone for rhythm maintenance,. Continue ASA likely poor candidate for anticoagulation 4. Outpt ischemic workup 5. Continue PP Plan Plan of Care Problems Medical Problems: (1) Other chest pain Status: Acute Comment Review of Relevant I have reviewed the following items juanita (where applicable) has been applied. Labs Laboratory Tests Test 09/14/21 18:05 09/14/21 20:39 09/15/21 04:00 09/15/21 11:45 Glucose (Fingerstick) 220 mg/dL (70-99) 173 mg/dL (70-99) 134 mg/dL (70-99) Sodium Level 137 mmol/L (136-145) Potassium Level 4.0 mmol/L (3.5-5.1) Chloride Level 98 mmol/L (98-107) Carbon Dioxide Level 32 mmol/L (21-32) Anion Gap 7 (6-14) Blood Urea Nitrogen 27 mg/dL (8-26) Creatinine 2.7 mg/dL (0.7-1.3) Estimated GFR (Cockcroft-Gault) 28.0 Glucose Level 110 mg/dL (70-99) Calcium Level 8.6 mg/dL (8.5-10.1) Phosphorus Level 3.2 mg/dL (2.6-4.7) Albumin 2.7 g/dL (3.4-5.0) Microbiology 09/09/21 Urine Culture - Final, Complete 09/09/21 Antimicrobic Susceptibility - Final, Complete Medications Current Medications Furosemide (Lasix) 80 mg DAILY PO Last administered on 09/15/21at 14:28; Start 09/15/21 at 09:00 Info (PHARMACY MONITORING -- do not chart) 1 each PRN DAILY PRN MC SEE COMMENTS; Start 09/15/21 at 07:00 Sodium Chloride 1,000 ml @ 400 mls/hr Q2H30M PRN IV PATENCY; Start 09/15/21 at 07:00; Stop 09/15/21 at 18:59 Sodium Chloride 1,000 ml @ 1,000 mls/hr Q1H PRN IV hypotension; Start 09/15/21 at 07:00; Stop 09/15/21 at 12:59; Status DC Vitals/I & O Vital Sign - Last 24 Hours 09/14/21 09/14/21 09/14/21 09/14/21 18:07 18:26 19:15 19:46 Temp 97.6 97.6 Pulse 61 Resp 20 B/P (MAP) 102/57 (72) Pulse Ox 98 O2 Delivery Room Air Room Air Room Air Room Air 09/14/21 09/14/21 09/15/21 09/15/21 19:52 23:00 02:46 05:51 Temp 98.2 97.9 98.2 97.9 Pulse 57 59 Resp 18 16 B/P (MAP) 144/54 (84) 138/55 (82) Pulse Ox 97 96 100 O2 Delivery Room Air Room Air Room Air Room Air 09/15/21 09/15/21 09/15/21 09/15/21 06:22 07:16 07:45 08:00 Pulse Ox 98 98 O2 Delivery Room Air Nasal Cannula Nasal Cannula Nasal Cannula O2 Flow Rate 2.0 3.0 3.0 09/15/21 09/15/21 14:27 14:28 Pulse 59 59 B/P (MAP) 138/55 138/55 Intake and Output 09/14/21 09/14/21 09/15/21 15:00 23:00 07:00 Intake Total 398 ml 350 ml 0 ml Output Total 201 ml 401 ml 200 ml Balance 197 ml -51 ml -200 ml DESTINY CAMPBELL MD Sep 15, 2021 15:35
[2021-09-15 19:30] VITALS: BP 159/70
[2021-09-15] MEDS ORDERED: MAG HYDROX/ALUMINUM HYD/SIMETH 30 ML ORAL.SUSP PO PRN (19:45)
[2021-09-15] MEDS: MONTELUKAST SODIUM 10 MG TABLET. PO SCH (20:08)
[2021-09-15] MEDS: GABAPENTIN 100 MG CAPSULE. PO SCH (20:08)
[2021-09-15] MEDS: ATORVASTATIN CALCIUM 40 MG TABLET. PO SCH (20:09)
[2021-09-15 23:02] VITALS: BP 157/63
[2021-09-16 02:53] VITALS: BP 160/59
[2021-09-16] MEDS: diphenhydrAMINE HCL 25 MG CAPSULE PO PRN (03:44)
[2021-09-16] MEDS: HYDROcodone/APAP 5/325MG 1 TAB TABLET PO PRN (03:49)
[2021-09-16 05:22] LABS: ALBUMIN 2.7 g/dL (3.4-5.0); CALCIUM 8.2 mg/dL (8.5-10.1); CREATININE 2.1 mg/dL (0.7-1.3); GFR 37.4; PHOSPHORUS 2.4 mg/dL (2.6-4.7); POTASSIUM 3.9 mmol/L (3.5-5.1)
[2021-09-16] MEDS: ALBUTEROL SULFATE 2.5 MG/3 ML NEBU. NEB SCH ×4 (06:21→20:28)
[2021-09-16] MEDS: BUDESONIDE 0.5 MG/2 ML NEBU. NEB SCH ×2 (06:21→20:28)
[2021-09-16] MEDS: HEPARIN for SUB-Q USE 5,000 UNIT/ML VIAL. SQ SCH ×3 (06:30→21:16)
[2021-09-16 07:25] VITALS: BP 144/53
[2021-09-16] MEDS: FERROUS SULFATE 325 MG TABLET. PO SCH (09:18)
[2021-09-16] MEDS: LACTOBACILLUS RHAMNOSUS GG 1 CAPSULE. PO SCH ×2 (09:19→21:15)
[2021-09-16] MEDS: FUROSEMIDE 80 MG TABLET. PO SCH (09:19)
[2021-09-16] MEDS: CARVEDILOL 12.5 MG TABLET. PO SCH ×2 (09:19→16:41)
[2021-09-16] MEDS: DULoxetine HCL 30 MG CAPSULE.DR PO SCH (09:19)
[2021-09-16] MEDS: AMIODARONE HCL 200 MG TABLET. PO SCH (09:19)
[2021-09-16] MEDS: PANTOPRAZOLE 40 MG TABLET.DR. PO SCH (09:19)
[2021-09-16] MEDS: INSULIN LISPRO 300 UNITS/3 ML VIAL. SQ SCH ×3 (09:20→16:46)
[2021-09-16] MEDS: POLYETHYLENE GLYCOL 3350 17 GM PACKET. PO SCH (09:20)
[2021-09-16] MEDS: ASPIRIN ENTERIC COATED 81 MG TABLET.DR. PO SCH (09:20)
[2021-09-16] MEDS: MAGNESIUM OXIDE 400 MG TABLET PO SCH (09:20)
[2021-09-16] MEDS: FOLIC/VIT B COMP W-C (RENAL) TABLET. PO SCH (09:20)
[2021-09-16 10:26] VITALS: BP 138/59
--- NOTE | 2021-09-16 12:00 | PDOC ---
Renal-Progress Notes Subjective Notes Notes NO NEW COMPLAINTS History of Present Illness Hx of present illness STABLE Vitals Vitals Vital Signs Date Time Temp Pulse Resp B/P (MAP) Pulse Ox O2 Delivery O2 Flow Rate FiO2 09/16/21 11:40 98 Room Air 09/16/21 10:26 98.6 69 14 138/59 (85) 98.6 09/16/21 08:00 3.0 Weight Weight [ ] I.O. Intake and Output Intake and Output 09/16/21 07:00 Intake Total 300 ml Output Total 500 ml Balance -200 ml Intake Oral 300 ml Output Urine Total 500 ml # Bowel Movements 1 Labs Labs Laboratory Tests Test 09/15/21 15:55 09/16/21 04:30 09/16/21 07:28 09/16/21 11:21 Glucose (Fingerstick) 155 mg/dL (70-99) 135 mg/dL (70-99) 139 mg/dL (70-99) Sodium Level 137 mmol/L (136-145) Potassium Level 3.9 mmol/L (3.5-5.1) Chloride Level 100 mmol/L (98-107) Carbon Dioxide Level 29 mmol/L (21-32) Anion Gap 8 (6-14) Blood Urea Nitrogen 19 mg/dL (8-26) Creatinine 2.1 mg/dL (0.7-1.3) Estimated GFR (Cockcroft-Gault) 37.4 Glucose Level 148 mg/dL (70-99) Calcium Level 8.2 mg/dL (8.5-10.1) Phosphorus Level 2.4 mg/dL (2.6-4.7) Albumin 2.7 g/dL (3.4-5.0) Micro Micro Microbiology 09/09/21 Urine Culture - Final, Complete 09/09/21 Antimicrobic Susceptibility - Final, Complete Review of Systems Constitutional: yes: alert, oriented Ears/Nose/Throat: Yes: no symptom reported Eyes: Yes: no symptom reported Pulmonary: Yes no symptom reported, Yes dyspnea Cardiovascular: Yes no symptom reported Gastrointestional: Yes: no symptom reported Genitourinary: Yes: no symptom reported Musculoskeletal: Yes: no symptom reported Skin: Yes no symptom reported Psychiatric/Neurological: Yes: no symptom reported Endocrine: Yes: no symptom reported Physical Exam General Appearance: no apparent distress Skin: warm Respiratory: bilateral CTA Heart: S1S2 Abdomen: soft, bowel sounds present Genitourinary: bladder flat Neurology: alert, oriented, follow commands Musculoskeletal: Other Assessment Assessment IMP [id number] ARM AV ACCESS ANEMIA NON COMPLIANCE-MISSED HIS OP HD ON FRIDAY VOLUME OVERLOAD DM II PAFIB NON COMPLIANCE PLAN HD FRIDAY BETTY TO CONTINUE ENC COMPLIANCE WILL FOLLOW JEANINE NEWTON MD Sep 16, 2021 12:00
--- NOTE | 2021-09-16 12:57 | PDOC ---
[facility] [facility] PROGRESS NOTE Date of Service DOS: DATE: 09/16/21 TIME: 12:56 Chief Complaint Chief Complaint Chest pain ESRD on dialysis Acute on chronic systolic and diastolic heart failure Atypical chest pain Paroxysmal A. fib Hypertension Hyperlipidemia History of Present Illness History of Present Illness 09/16/2021 Patient seen and examined He is resting with no apparent distress Reviewed chart Discussed with RN 09/15/2020 Patient seen exam He just got back from dialysis Chart reviewed Discussed with RN 09/14/2021 Patient seen and examined Chart reviewed Discussed with RN Patient says he is doing well today. Per RN, the patient was complaining of CP last night. None today. Awaiting discharge planning to SNU. Vitals/I&O Vitals/I&O: Vital Signs Date Time Temp Pulse Resp B/P (MAP) Pulse Ox O2 Delivery O2 Flow Rate FiO2 09/16/21 11:40 98 Room Air 09/16/21 10:26 98.6 69 14 138/59 (85) 98.6 09/16/21 08:00 3.0 I & O 09/15/21 09/15/21 09/16/21 15:00 23:00 07:00 Intake Total 180 ml 120 ml Output Total 50 ml 300 ml 150 ml Balance -50 ml -120 ml -30 ml Physical Exam General: No acute distress Heart: Regular rate Lungs: Clear Abdomen: Normal bowel sounds Extremities: Normal pulses Skin: No significant lesion Labs Labs: Laboratory Tests Test 09/15/21 15:55 09/16/21 04:30 09/16/21 07:28 09/16/21 11:21 Glucose (Fingerstick) 155 mg/dL (70-99) 135 mg/dL (70-99) 139 mg/dL (70-99) Sodium Level 137 mmol/L (136-145) Potassium Level 3.9 mmol/L (3.5-5.1) Chloride Level 100 mmol/L (98-107) Carbon Dioxide Level 29 mmol/L (21-32) Anion Gap 8 (6-14) Blood Urea Nitrogen 19 mg/dL (8-26) Creatinine 2.1 mg/dL (0.7-1.3) Estimated GFR (Cockcroft-Gault) 37.4 Glucose Level 148 mg/dL (70-99) Calcium Level 8.2 mg/dL (8.5-10.1) Phosphorus Level 2.4 mg/dL (2.6-4.7) Albumin 2.7 g/dL (3.4-5.0) Assessment and Plan Assessmemt and Plan Problems Medical Problems: (1) Other chest pain Status: Acute Chest pain, ESRD, noncompliance Recovered Covid-19 Acute on chronic systolic and diastolic heart failure Atypical chest pain Paroxysmal A. fib Hypertension Plan Continue dialysis per nephrology Cardiac monitoring Home meds DVT prophylaxis Full code Trend lab Appreciate subspecialist input probable discharge to SNU soon We will ask outreach and education social worker to arrange mcfp Per cardiology recommendations please see the following and we certainly agree and appreciate their input; Assessment 1. Acute on chronic diastolic CHF: compensated 2. Atypical chest pain: relieved by GI cocktail 3. End-stage renal disease 4. PAFIB: maintaining SR 5. HTN: controlled 6. DM2/HLP Recommendations 1. HF exacerbation due to HD noncompliance. Discussed adherance. HD today 2. Secondary prevention measures. Continue coreg at lower dose for rate/BP control 3. Amiodarone for rhythm maintenance,. Continue ASA likely poor candidate for anticoagulation 4. Outpt ischemic workup 5. Continue PP Comment Review of Relevant I have reviewed the following items juanita (where applicable) has been applied. Medications: Current Medications Medications (Trade) Dose Ordered Sig/Jodie Route PRN Reason Start Time Stop Time Status Last Admin Dose Admin Al Hydroxide/Mg Hydroxide (Mylanta Plus Xs) 30 ml PRN Q6HRS PRN PO DYSPEPSIA 09/15/21 19:45 09/15/21 20:08 Justifications for Admission Other Justification ILDA ELENI PEARL III DO Sep 16, 2021 12:57
[2021-09-16 14:18] VITALS: BP 170/69
--- NOTE | 2021-09-16 14:24 | PDOC ---
PROGRESS NOTES Date of Service: DATE: 09/16/21 TIME: 14:24 Subjective Subjective Comfortable, no new complaints Objective Objective Vital Signs Date Time Temp Pulse Resp B/P (MAP) Pulse Ox O2 Delivery O2 Flow Rate FiO2 09/16/21 14:18 98.5 54 14 170/69 (102) 100 Room Air 98.5 09/16/21 08:00 3.0 Intake and Output 09/16/21 07:00 Intake Total 300 ml Output Total 500 ml Balance -200 ml Intake Oral 300 ml Output Urine Total 500 ml # Bowel Movements 1 Physical Exam Abdomen: Normal bowel sounds Heart: Regular rate Extremities: Normal pulses General: No acute distress Lungs: Other (Mildly decreased breath sounds) Skin: No significant lesion Assessment Assessment 1. Acute on chronic diastolic CHF: compensated 2. Atypical chest pain: relieved by GI cocktail 3. End-stage renal disease 4. PAFIB: maintaining SR 5. HTN: controlled 6. DM2/HLP Recommendations 1. HF exacerbation due to HD noncompliance. Discussed adherance. Continue hemodialysis per nephrology team 2. Secondary prevention measures. Continue coreg at lower dose for rate/BP control 3. Amiodarone for rhythm maintenance,. Continue ASA likely poor candidate for anticoagulation 4. Outpt ischemic workup 5. Continue PP Plan Plan of Care Problems Medical Problems: (1) Other chest pain Status: Acute Comment Review of Relevant I have reviewed the following items juanita (where applicable) has been applied. Labs Laboratory Tests Test 09/15/21 15:55 09/16/21 04:30 09/16/21 07:28 09/16/21 11:21 Glucose (Fingerstick) 155 mg/dL (70-99) 135 mg/dL (70-99) 139 mg/dL (70-99) Sodium Level 137 mmol/L (136-145) Potassium Level 3.9 mmol/L (3.5-5.1) Chloride Level 100 mmol/L (98-107) Carbon Dioxide Level 29 mmol/L (21-32) Anion Gap 8 (6-14) Blood Urea Nitrogen 19 mg/dL (8-26) Creatinine 2.1 mg/dL (0.7-1.3) Estimated GFR (Cockcroft-Gault) 37.4 Glucose Level 148 mg/dL (70-99) Calcium Level 8.2 mg/dL (8.5-10.1) Phosphorus Level 2.4 mg/dL (2.6-4.7) Albumin 2.7 g/dL (3.4-5.0) Microbiology 09/09/21 Urine Culture - Final, Complete 09/09/21 Antimicrobic Susceptibility - Final, Complete Medications Current Medications Al Hydroxide/Mg Hydroxide (Mylanta Plus Xs) 30 ml PRN Q6HRS PRN PO DYSPEPSIA Last administered on 09/15/21at 20:08; Start 09/15/21 at 19:45 Vitals/I & O Vital Sign - Last 24 Hours 09/15/21 09/15/21 09/15/21 09/15/21 14:27 14:28 15:00 15:49 Temp 98.1 98.1 Pulse 59 59 65 Resp 18 B/P (MAP) 138/55 138/55 143/58 (86) Pulse Ox 95 98 O2 Delivery Room Air Nasal Cannula O2 Flow Rate 2.0 09/15/21 09/15/21 09/15/21 09/15/21 17:00 19:00 19:30 19:41 Temp 98.7 98.7 Pulse 65 65 Resp 18 B/P (MAP) 143/58 159/70 (99) Pulse Ox 97 O2 Delivery Room Air Room Air Room Air 09/15/21 09/15/21 09/16/21 09/16/21 19:53 23:02 02:53 03:49 Temp 98.6 98.8 98.6 98.8 Pulse 63 62 Resp 18 16 B/P (MAP) 157/63 (94) 160/59 (92) Pulse Ox 100 98 97 O2 Delivery Room Air Room Air Room Air Room Air 09/16/21 09/16/21 09/16/21 09/16/21 04:19 06:21 07:25 08:00 Temp 98.6 98.6 Pulse 59 Resp 16 B/P (MAP) 144/53 (83) Pulse Ox 100 98 O2 Delivery Room Air Room Air Room Air Nasal Cannula O2 Flow Rate 3.0 09/16/21 09/16/21 09/16/21 09/16/21 09:19 09:19 09:19 10:26 Temp 98.6 98.6 Pulse 59 59 59 69 Resp 14 B/P (MAP) 144/53 144/53 144/53 138/59 (85) Pulse Ox 98 O2 Delivery Room Air 09/16/21 09/16/21 11:40 14:18 Temp 98.5 98.5 Pulse 54 Resp 14 B/P (MAP) 170/69 (102) Pulse Ox 98 100 O2 Delivery Room Air Room Air Intake and Output 09/15/21 09/15/21 09/16/21 15:00 23:00 07:00 Intake Total 180 ml 120 ml Output Total 50 ml 300 ml 150 ml Balance -50 ml -120 ml -30 ml DESTINY CAMPBELL MD Sep 16, 2021 14:24
[2021-09-16 19:46] VITALS: BP 118/55
[2021-09-16] MEDS: MONTELUKAST SODIUM 10 MG TABLET. PO SCH (21:15)
[2021-09-16] MEDS: ATORVASTATIN CALCIUM 40 MG TABLET. PO SCH (21:15)
[2021-09-16] MEDS: GABAPENTIN 100 MG CAPSULE. PO SCH (21:15)
[2021-09-16 23:27] VITALS: BP 171/68
[2021-09-17 02:59] VITALS: BP 162/51
[2021-09-17] MEDS: HEPARIN for SUB-Q USE 5,000 UNIT/ML VIAL. SQ SCH ×2 (06:18→14:00)
[2021-09-17 06:28] VITALS: BP 171/68
[2021-09-17] MEDS: BUDESONIDE 0.5 MG/2 ML NEBU. NEB SCH (07:16)
[2021-09-17] MEDS: ALBUTEROL SULFATE 2.5 MG/3 ML NEBU. NEB SCH ×3 (07:16→15:40)
[2021-09-17] MEDS: INSULIN LISPRO 300 UNITS/3 ML VIAL. SQ SCH ×3 (07:30→16:30)
[2021-09-17] MEDS: POLYETHYLENE GLYCOL 3350 17 GM PACKET. PO SCH (09:00)
--- NOTE | 2021-09-17 09:37 | PDOC ---
DATE OF SERVICE DATE: 09/17/21 TIME: 09:36 SUBJECTIVE ROS stable, No complaints OBJECTIVE Vital Signs Vital Signs Date Time Temp Pulse Resp B/P (MAP) Pulse Ox O2 Delivery O2 Flow Rate FiO2 09/17/21 07:18 97 Room Air 09/17/21 06:28 98.5 59 18 171/68 (102) 98.5 09/16/21 20:00 3.0 I & 0 Intake and Output 09/17/21 07:00 Intake Total 1420 ml Output Total 500 ml Balance 920 ml Intake Oral 1420 ml Output Urine Total 500 ml # Bowel Movements 4 PHYSICAL EXAM Physical Exam General Appearance: no apparent distress HEEN OM moist Lungs : bilateral CTA, Non labored, On RA Heart: S1S2 Abdomen: soft, bowel sounds present Genitourinary: No mooney Neurology: alert, oriented, follow commands DIAGNOSIS/ASSESSMENT Assessment & Plan ESRD-TTS- at [facility] , Currently No emergent Indication for dialysis today Access Tunneled HDC RT Volume Overload POA - Currently appears stable DM II PAFIB Anemia - Continue BETTY COMMENT/RELEVANT DATA Meds Current Medications Medications (Trade) Dose Ordered Sig/Jodie Start Time Stop Time Status Last Admin Dose Admin Acetaminophen (Tylenol) 650 mg PRN Q4HRS PRN 09/09/21 14:45 UNV Acetaminophen/ Hydrocodone Bitart (Lortab 5/325) 1 tab PRN Q6HRS PRN 09/09/21 14:45 09/16/21 03:49 1 TAB Al Hydroxide/Mg Hydroxide (Mylanta Plus Xs) 30 ml PRN Q6HRS PRN 09/15/21 19:45 09/15/21 20:08 30 ML Albuterol Sulfate (Ventolin Neb Soln) 2.5 mg PRN Q6HRS PRN 09/09/21 15:00 Amiodarone HCl (Cordarone) 200 mg DAILY 09/09/21 16:00 09/16/21 09:19 200 MG Amlodipine Besylate (Norvasc) 10 mg DAILY 09/08/21 10:30 09/16/21 09:19 10 MG Aspirin (Aspirin Chewable) 324 mg 1X ONCE 09/07/21 23:30 09/07/21 23:31 DC 09/07/21 23:19 324 MG Aspirin (Ecotrin) 81 mg DAILYWBKFT 09/08/21 10:30 09/16/21 09:20 81 MG Atorvastatin Calcium (Lipitor) 80 mg HS 09/08/21 21:00 09/16/21 21:15 80 MG Bisacodyl (Dulcolax Supp) 10 mg PRN DAILY PRN 09/09/21 14:45 Budesonide (Pulmicort) 0.5 mg RTBID 09/08/21 20:00 09/17/21 07:16 0.5 MG Calcium Carbonate/ Glycine (Tums) 500 mg PRN Q3HRS PRN 09/08/21 09:45 Carvedilol (Coreg) 12.5 mg BIDWMEALS 09/11/21 17:00 09/16/21 16:41 12.5 MG Diphenhydramine HCl (Benadryl) 25 mg PRN Q6HRS PRN 09/09/21 15:00 09/16/21 03:44 25 MG Duloxetine HCl (Cymbalta) 30 mg DAILY 09/09/21 16:00 09/16/21 09:19 30 MG Epoetin Corey-epbx (RETACRIT for ESRD PTS) 10,000 unit MoWeFr@2100 09/10/21 21:00 09/14/21 20:52 10,000 UNIT Fentanyl Citrate (Fentanyl 2ml Vial) 25 mcg PRN Q1HR PRN 09/08/21 00:15 09/09/21 00:14 DC Ferrous Sulfate (Feosol) 325 mg DAILY 09/09/21 16:00 09/16/21 09:18 325 MG Furosemide (Lasix) 80 mg DAILY 09/15/21 09:00 09/16/21 09:19 80 MG Gabapentin (Neurontin) 100 mg QHS 09/09/21 21:00 09/16/21 21:15 100 MG Glycerin/ Hypromellose/ Polyethylene (Artificial Tears) 1 drop PRN QID PRN 09/09/21 15:00 Heparin Sodium (Porcine) (Heparin Sodium) 5,000 unit Q8HRS 09/08/21 14:00 09/17/21 06:18 5,000 UNIT Info (Non-Icu Electrolyte Protocol) 1 ea PRN DAILY PRN 09/08/21 09:45 Info (PHARMACY MONITORING -- do not chart) 1 each PRN DAILY PRN 09/15/21 07:00 Insulin Human Lispro (HumaLOG) 4 units TIDAC 09/09/21 16:30 09/16/21 16:46 4 UNITS Lactic Acid (Lac-Hydrin) 1 danielito PRN BID PRN 09/09/21 14:45 Lactobacillus Rhamnosus (Culturelle) 1 cap BID 09/13/21 09:00 09/16/21 21:15 1 CAP Levofloxacin (Levaquin) 250 mg Q48H 09/12/21 15:00 09/16/21 16:39 250 MG Magnesium Oxide (Magnesium Oxide) 400 mg DAILY 09/09/21 16:00 09/16/21 09:20 400 MG Magnesium Sulfate 50 ml @ 25 mls/hr PRN DAILY PRN 09/09/21 09:45 Montelukast Sodium (Singulair) 10 mg HS 09/09/21 21:00 UNV Multi-Ingredient Mouthwash/Gargle (Gi Cocktail) 20 ml 1X ONCE 09/13/21 15:15 09/13/21 15:16 DC 09/13/21 15:18 20 ML Non-Formulary Medication (Fluticasone/ Salmeterol (Advair 100-50 Diskus)) 1 puff BID 09/08/21 21:00 UNV Ondansetron HCl (Zofran) 4 mg PRN Q6HRS PRN 09/08/21 09:45 Oxycodone HCl (Roxicodone) 10 mg PRN Q4HRS PRN 09/08/21 09:45 Pantoprazole Sodium (Protonix) 40 mg DAILYAC 09/09/21 16:00 09/16/21 09:19 40 MG Pharmacy Consult (C.diff Med Screen By Rx) 1 each 1X ONCE 09/09/21 01:15 09/09/21 01:16 DC Polyethylene Glycol (miraLAX PACKET) 17 gm DAILY 09/08/21 10:30 09/16/21 09:20 17 GM Sodium Chloride 1,000 ml @ 400 mls/hr Q2H30M PRN 09/15/21 07:00 09/15/21 18:59 DC Vitamin B Complex/ Vitamin C (Ana-Anjelica) 1 tab DAILY 09/09/21 16:00 09/16/21 09:20 1 TAB Zolpidem Tartrate (Ambien) 5 mg PRN QHS PRN 09/08/21 09:45 Lab Laboratory Tests Test 09/16/21 11:21 09/16/21 16:42 09/16/21 20:17 09/17/21 06:40 Glucose (Fingerstick) 139 mg/dL (70-99) 143 mg/dL (70-99) 154 mg/dL (70-99) 135 mg/dL (70-99) Results All relevant outside records, renal labs, imaging studies, telemetry/EKG's were reviewed. Justicifation of Admission Dx: Justifications for Admission: Justification of Admission Dx: Yes Aspiration Pneumonia: Hemodynamic Instability JASMEET LAM MD Sep 17, 2021 09:37
[2021-09-17] MEDS: diphenhydrAMINE HCL 25 MG CAPSULE PO PRN (09:38)
[2021-09-17] MEDS: HYDROcodone/APAP 5/325MG 1 TAB TABLET PO PRN (09:38)
[2021-09-17] MEDS: CARVEDILOL 12.5 MG TABLET. PO SCH (09:39)
[2021-09-17] MEDS: PANTOPRAZOLE 40 MG TABLET.DR. PO SCH (09:40)
[2021-09-17] MEDS: AMIODARONE HCL 200 MG TABLET. PO SCH (09:40)
[2021-09-17] MEDS: MAGNESIUM OXIDE 400 MG TABLET PO SCH (09:40)
[2021-09-17] MEDS: FOLIC/VIT B COMP W-C (RENAL) TABLET. PO SCH (09:40)
[2021-09-17] MEDS: DULoxetine HCL 30 MG CAPSULE.DR PO SCH (09:40)
[2021-09-17] MEDS: ASPIRIN ENTERIC COATED 81 MG TABLET.DR. PO SCH (09:40)
[2021-09-17] MEDS: LACTOBACILLUS RHAMNOSUS GG 1 CAPSULE. PO SCH (09:40)
[2021-09-17] MEDS: FUROSEMIDE 80 MG TABLET. PO SCH (09:40)
[2021-09-17] MEDS: FERROUS SULFATE 325 MG TABLET. PO SCH (09:40)
[2021-09-17 10:06] VITALS: BP 165/67
--- NOTE | 2021-09-17 11:26 | PDOC ---
CAMRYN DRAPER INSOLE LIP TURNER 09/17/21 1126: CARDIO Progress Notes Date and Time Date of Service 09/17/21 Time of Evaluation 1120 Subjective Subjective: No Chest Pain, No shortness of breath, No Palpitations Vitals Vitals Vital Signs Date Time Temp Pulse Resp B/P (MAP) Pulse Ox O2 Delivery O2 Flow Rate FiO2 09/17/21 11:14 98 Room Air 09/17/21 10:06 98.0 57 18 165/67 (99) 98.0 09/17/21 08:00 3.0 Weight Weight [ ] Input and Output Intake and Output Intake and Output 09/17/21 07:00 Intake Total 1420 ml Output Total 500 ml Balance 920 ml Intake Oral 1420 ml Output Urine Total 500 ml # Bowel Movements 4 Laboratory Labs Laboratory Tests Test 09/16/21 16:42 09/16/21 20:17 09/17/21 06:40 Glucose (Fingerstick) 143 mg/dL (70-99) 154 mg/dL (70-99) 135 mg/dL (70-99) Microbiology Micro Microbiology 09/09/21 Urine Culture - Final, Complete 09/09/21 Antimicrobic Susceptibility - Final, Complete Review of Systems Constitutional: yes: alert, oriented Ears/Nose/Throat: Yes: no symptom reported Eyes: Yes: no symptom reported Pulmonary: Yes no symptom reported, Yes dyspnea Cardiovascular: Yes no symptom reported Gastrointestional: Yes: no symptom reported Genitourinary: Yes: no symptom reported Musculoskeletal: Yes: no symptom reported Skin: Yes no symptom reported Psychiatric/Neurological: Yes: no symptom reported Endocrine: Yes: no symptom reported Physical Exam HEENT: Neck Supple W Full Motion Chest: Symmetric LUNGS: Other (diminished bases) Heart: RRR (SR) Abdomen: Soft N/T Extremities: No Calf Tenderness Neurology: alert, oriented, follow commands Assessment Assessment 1. Acute on chronic diastolic CHF: compensated 2. Atypical chest pain: relieved by GI cocktail 3. End-stage renal disease 4. PAFIB: maintaining SR 5. HTN: controlled 6. DM2/HLP Recommendations Fluid offloading via HD Secondary prevention measures. Amiodarone for rhythm maintenance Continue ASA likely poor candidate for anticoagulation Outpt ischemic workup as arranged Follow up in out office with Dr. Rodriguez as scheduled. Continue PP Justicifation of Admission Dx: Justifications for Admission: Justification of Admission Dx: Yes Aspiration Pneumonia: Hemodynamic Instability VIDAL RODRIGUEZ MD 09/17/21 1622: CARDIO Progress Notes Assessment Assessment Patient seen and examined I agree with our nurse practitioners assessment and plan. Acute on chronic diastolic CHF: compensated. Continuing present medications. Fluid management as per hemodialysis. Atypical chest pain: relieved by GI cocktail. Outpatient ischemia evaluation. End-stage renal disease. Dialysis as above. PAFIB: maintaining SR on amiodarone. HTN: controlled DM2/HLP CAMRYN DRAPER APRN Sep 17, 2021 11:26 VIDAL RODRIGUEZ MD Sep 17, 2021 16:22
--- NOTE | 2021-09-17 11:36 | SNU/HH DC ---
DISCHARGE WITH HOME HEALTH DISCHARGE INFORMATION: Final Diagnosis: Problems Medical Problems: (1) Other chest pain Status: Acute Condition on Discharge: Stable CODE STATUS: Code Status: Full HOME HEALTH: Face to Face: I certify this patient is under my care and that I, or a nurse practitioner or physician's technology assistant working with me, had a face to face encounter that meets the physician face to face encounter requirements with this patient on []. RN For Eval/Treatment: Yes Physical Therapy For: Evalulation/Treatment Occupational Therapy For: Evaluation/Treatment Home Health Aide For: Self-care QUALITY SUPERVISOR For: Community Resources Pt Meets Homebound Status: Unsteady balance w/ amb, POST DISCHARGE ORDERS: Activity Instructions for Disc: Activity as tolerated Weight Bearing Status after Di: As tolerated DIET AFTER DISCHARGE: Renal Wound/Incision Care: Ice to area for comfort, Keep wound/cast CDI CHECKS AFTER DISCHARGE: Checks after discharge: Check blood press - daily TREATMENT/EQUIPMENT ORDERS: Adaptive Equipment Issued: None, Front wheeled walker CERTIFICATION STATEMENT: Certification Statement: Certification Statement: Based on the above finding, I certify that this patient is confined to the home and needs intermittent halfway care, physical therapy and/or speech therapy, or continues to need occupational therapy.~ This patient is under my care, and I have initiated the establishment of the plan of care.~ This patient will be followed by myself or a community physician who will periodically review the plan of care. Home Meds Active Scripts Furosemide (LASIX) 40 Mg Tablet, 40 MG PO BID for . for 30 Days, #60 TAB Prov:CASTLE,NIAL K III DO 09/13/21 Amlodipine Besylate (AMLODIPINE BESYLATE) 10 Mg Tablet, 10 MG PO DAILY for . for 90 Days, #90 TAB Prov:CASTLE,NIAL K III DO 09/13/21 Carvedilol (CARVEDILOL ) 12.5 Mg Tablet, 12.5 MG PO BIDWMEALS for . for 90 Days, #180 TAB Prov:CASTLE,NIAL K III DO 09/13/21 Levofloxacin (LEVOFLOXACIN) 250 Mg Tablet, 250 MG PO Q48H for . for 10 Days, #5 TAB Prov:CASTLE,NIAL K III DO 09/13/21 Polyethylene Glycol 3350 (POLYETHYLENE GLYCOL 3350) 17 Gm Powd.pack, 17 GM PO DAILY for PREVENT CONSTIPATION for 14 Days, #14 PKT Prov:ALBA SWAIN MD 04/19/21 Acetaminophen (ACETAMINOPHEN) 325 Mg Tablet, 650 MG PO PRN Q4HRS PRN for TEMP OVER 100.4F OR MILD PAIN for 14 Days, #60 TAB Prov:ALBA SWAIN MD 04/19/21 Aspirin (ASPIRIN EC) 81 Mg Tablet.dr, 81 MG PO DAILYWBKFT for HEART HEALTH for 30 Days, #30 TAB.SR Prov:ALBA SWAIN MD 04/19/21 Reported Medications Montelukast Sodium (MONTELUKAST SODIUM TABLET ) 10 Mg Tablet, 10 MG PO HS for FOR ASTHMA, TAB 0 Refills 09/09/21 Folic Acid/Vit Bcomp,C (Renal-Anjelica Tablet) 0.8 Mg Tablet, 1 TAB PO DAILY for for 30 Days, #30 TAB 0 Refills 09/09/21 Magnesium Oxide (MAGNESIUM OXIDE) 400 Mg Tablet, 1 TAB PO DAILY for , #90 TAB 3 Refills 09/09/21 Hydrocodone Bit/Acetaminophen (HYDROCODONE-APAP 5-325 ) 1 Tab Tablet, 1 TAB PO PRN Q6HRS PRN for PAIN, TAB 0 Refills 09/09/21 Ferrous Sulfate (FEOSOL) 325 Mg Tablet, 325 MG PO DAILY for , TAB 09/09/21 Duloxetine Hcl (CYMBALTA) 30 Mg Capsule.dr, 30 MG PO DAILY for , CAP 09/09/21 Diphenhydramine Hcl (DIPHENHYDRAMINE HCL) 25 Mg Tablet, 25 MG PO PRN Q6HRS PRN for ITCHING, TAB 09/09/21 Diclofenac Sodium (DICLOFENAC SODIUM) 100 Gm Gel..gram., 100 GM TP BID for , EACH 09/09/21 Peg 400/Hypromellose/Glycerin (ARTIFICIAL TEARS DROPS) 15 Ml Drops, 1 DROP EACHEYE QID for for 30 Days, #15 ML 0 Refills 09/09/21 Amiodarone Hcl (AMIODARONE HCL) 200 Mg Tablet, 1 TAB PO DAILY for 09/09/21 Insulin Lispro (HUMALOG) 100 Unit/1 Ml Cartridge, SQ TIDAC for , EACH 4 units + SSI (2-12 Units) 09/09/21 Pantoprazole Sodium (PROTONIX) 20 Mg Tablet.dr, 20 MG PO DAILY for , TAB 09/09/21 Gabapentin (Gabapentin) 100 Mg Capsule, 100 MG PO QHS for , CAP 09/09/21 Ipratropium/Albuterol Sulfate (DUONEB 0.5-3(2.5) MG/3 ML) 3 Ml Ampul.neb, 3 ML NEB Q6HRS PRN for rx, EACH 07/04/21 Bisacodyl (BISACODYL) 10 Mg Supp.rect, 10 MG RC PRN DAILY PRN for CONSTIPATION, SUPP.RECT 0 Refills 07/04/21 Atorvastatin Calcium (LIPITOR) 80 Mg Tablet, 80 MG PO HS for FOR CHOLESTEROL, #30 TAB 0 Refills 07/04/21 Ammonium Lactate (Lac-Hydrin Five) 226 Gm Lotion, 1 CUAUHTEMOC TP BID for rx for 30 Days, #226 GM 0 Refills 07/04/21 Montelukast Sodium (MONTELUKAST SODIUM TABLET ) 10 Mg Tablet, 10 MG PO HS for FOR ASTHMA, TAB 0 Refills 04/17/21 Discontinued Reported Medications Carvedilol (CARVEDILOL) 25 Mg Tablet, 25 MG PO BIDWMEALS for CARDIAC, TAB 09/09/21 ELENI PEARL III DO Sep 17, 2021 11:36
--- NOTE | 2021-09-17 11:37 | PDOC ---
[employer] [facility] PROGRESS NOTE Date of Service DOS: DATE: 09/17/21 TIME: 11:36 Chief Complaint Chief Complaint Chest pain ESRD on dialysis Acute on chronic systolic and diastolic heart failure Atypical chest pain Paroxysmal A. fib Hypertension Hyperlipidemia History of Present Illness History of Present Illness 09/17/2021 Patient seen and examined He basically is at his baseline His insurance called said they want pay for him to stay here I discussed the case with the nurse outreach case manager she is trying to arrange home health versus long-term care 09/16/2021 Patient seen and examined He is resting with no apparent distress Reviewed chart Discussed with RN 09/15/2020 Patient seen exam He just got back from dialysis Chart reviewed Discussed with RN 09/14/2021 Patient seen and examined Chart reviewed Discussed with RN Patient says he is doing well today. Per RN, the patient was complaining of CP last night. None today. Awaiting discharge planning to SNU. Vitals/I&O Vitals/I&O: Vital Signs Date Time Temp Pulse Resp B/P (MAP) Pulse Ox O2 Delivery O2 Flow Rate FiO2 09/17/21 11:14 98 Room Air 09/17/21 10:06 98.0 57 18 165/67 (99) 98.0 09/17/21 08:00 3.0 I & O 09/16/21 09/16/21 09/17/21 15:00 23:00 07:00 Intake Total 300 ml 1120 ml 0 ml Output Total 100 ml 400 ml Balance 200 ml 720 ml 0 ml Physical Exam General: No acute distress Heart: Regular rate Lungs: Clear Abdomen: Normal bowel sounds Extremities: Normal pulses Skin: No significant lesion Labs Labs: Laboratory Tests Test 09/16/21 16:42 09/16/21 20:17 09/17/21 06:40 Glucose (Fingerstick) 143 mg/dL (70-99) 154 mg/dL (70-99) 135 mg/dL (70-99) Assessment and Plan Assessmemt and Plan Problems Medical Problems: (1) Other chest pain Status: Acute Discharge to home health or long-term care social work case manager arranging Comment Review of Relevant I have reviewed the following items juanita (where applicable) has been applied. Justifications for Admission Other Justification ELENI RENTERIA III DO Sep 17, 2021 11:37
--- NOTE | 2021-09-17 11:55 | DS ---
DATE OF DISCHARGE: 09/17/2021 ADMITTING DIAGNOSES: Volume overload and chest pain. DISCHARGE DIAGNOSES: Resolving volume overload, resolving atypical chest pain, end-stage renal disease, history of congestive heart failure, noncompliance, atypical chest pain, paroxysmal atrial fibrillation, hypertension, hyperlipidemia. CONSULTS: Cardiology and Nephrology. PROCEDURES: Dialysis. HOSPITAL COURSE: The patient is a pleasant elderly male who is noncompliant with his dialysis and other issues, basically presented with some vague chest pain and volume overload. We admitted him. The above consults were obtained. We have dialyzed him several times. Today, I saw and examined him. He is at his baseline, doing well. His insurance called me to explain that they do not feel he meets criteria to be inpatient. I spoke with the medical case worker. The plan is to get him into a long-term care or home health. DISPOSITION: Home health or long-term care after the medical case worker talked to the family. ACTIVITY: As tolerated. DIET: Renal. MEDICATIONS: Please see the MRAD. Amlodipine 10 a day, Coreg 12.5 b.i.d., Lasix 40 b.i.d., Levaquin 250 every 48 hours for 10 days, p.r.n. Tylenol, amiodarone 200 daily, Lac-Hydrin ointment, aspirin 81 a day, atorvastatin 80 a day, bisacodyl 10 a day, diclofenac 100 b.i.d., p.r.n. Benadryl, Cymbalta 30 a day, iron 325 a day, folic acid 1 a day, gabapentin 100 at bedtime, p.r.n. hydrocodone, insulin, magnesium, Singulair 10 a day, Protonix 20 a day, artificial tears, and polyethylene glycol. TOTAL TIME: [address]: Williams TID: [id number]
--- NOTE | 2021-09-17 14:27 | NUR ---
SS following up with discharge planning. SS reviewed pt chart and discussed with pt RN. Pt is currently on room air. COVID19 negative. Pt on PO medications. Pt has outpatient hemodialysis at [facility], ; fax [phone], Friday, , and Friday. Pt denied for skilled rehabilitation by [facility] insurance. Appeal done and denial was upheld by insurance. SS met with pt and discussed with pt's family via phone. Pt wanting to return to home but is understanding that he cannot walk and requires a jean-pierre lift for transfers. Pt's family notified pt that physically they are not able to get pt to and from dialysis safely. Pt now agreeable to LTC placement in or near the [facility] region. Pt does have active Medicaid. Referrals phoned and faxed to [facility], ; fax [phone], [place], ; fax [phone], [facility] in [facility], ; fax [phone], and [facility], ; fax [phone]. SS will continue to follow for discharge planning. Addendum: 09/17/21 at 1446 by LAKHWINDER CUETO SS [facility] contacted SS and reported that they would accept pt back as LTC resident. [facility]. Rapid COVID19 swab requested by facility. COVID19 swab pending at this time. Pending COVID19 results pt will discharge today and go to [facility] via stretcher transportation between 1630 and 1700. Pt, pt's RN, and pt's family notified.
[2021-09-17 14:53] VITALS: BP 118/57
--- NOTE | 2021-09-17 16:48 | NUR ---
Discharge Note: NIL[facility] LAN [address] [place] [address] Discharge instructions and discharge home medications reviewed with Other facility and a copy given. All questions have been answered and understanding verbalized. The following instructions and handouts were given: discharge instructions, follow ups/stress test appt, med list, med education, CHF education Discontinued lines and drains: Peripheral IV intact. Patient discharged to [facility] with transportation via Stretcher at 1648. Report called to HERMILO Chappell at [facility].
== END 2021-09-17 16:48 | DRG 291 ==
LOC: ER 22:34 → 6 SOUTH 09-08 01:32 → ED HOLD 09-08 02:19 → OBSVTOIN 09-08 02:19 → 6 SOUTH 09-08 19:51
PROVIDERS: ADMIT Internal Medicine; ATTEND Internal Medicine
PROC: 02HV33Z Insertion of Infusion Device into Superior Vena Cava, Percutaneous Approach (ICD-10-PCS; 2021-09-08)
PROC: 5A1D70Z Performance of Urinary Filtration, Intermittent, Less than 6 Hours Per Day (ICD-10-PCS; 2021-09-10)
PROC: 5A1D70Z Performance of Urinary Filtration, Intermittent, Less than 6 Hours Per Day (ICD-10-PCS; 2021-09-11)
PROC: 5A1D70Z Performance of Urinary Filtration, Intermittent, Less than 6 Hours Per Day (ICD-10-PCS; 2021-09-13)
PROC: 5A1D70Z Performance of Urinary Filtration, Intermittent, Less than 6 Hours Per Day (ICD-10-PCS; principal; 2021-09-15)
DX: I13.2 Hypertensive heart and chronic kidney disease with heart failure and with stage 5 chronic kidney disease, or end stage renal disease (principal); I50.43 Acute on chronic combined systolic (congestive) and diastolic (congestive) heart failure; N18.6 End stage renal disease; J96.10 Chronic respiratory failure, unspecified whether with hypoxia or hypercapnia; D64.9 Anemia, unspecified; E11.22 Type 2 diabetes mellitus with diabetic chronic kidney disease; E78.5 Hyperlipidemia, unspecified; G89.29 Other chronic pain; I25.10 Atherosclerotic heart disease of native coronary artery without angina pectoris; I48.0 Paroxysmal atrial fibrillation; J44.9 Chronic obstructive pulmonary disease, unspecified; Z79.4 Long term (current) use of insulin; Z82.49 Family history of ischemic heart disease and other diseases of the circulatory system; Z87.891 Personal history of nicotine dependence; Z91.15 Patient's noncompliance with renal dialysis; Z91.19 Patient's noncompliance with other medical treatment and regimen; Z99.2 Dependence on renal dialysis
CPT/HCPCS: 36415; 71045; 80053; 80069; 81001; 82962; 83735; 83880; 84484; 85018; 85025; 85610; 85730; 87077; 87086; 87186; 87340; 87426; 93005; 94640; 94760; 96374; J1644; J1815; J1940; J3010; U0003; U0005; 97110-GO; 97110-GP; 97530-GO; 97530-GP; 97535-GO; 99285-25; G0378; J7613; J7626; Q0163